=== PATIENT | male | born 1955 | race Caucasian/White ===

== ENCOUNTER 2018-01-12 10:28 | Outpatient (REF) | payer BC, SELFPAY ==
[2018-01-12 13:50] LABS: HGB 15.6 g/dL (13.5-17.5); Mean Corp. HGB Concentration 32.5 g/dL (32.0-36.0); Mean Corpuscular Hemoglobin 28.4 pg (27.0-33.0); Mean Corpuscular Volume 87.3 fL (80-95); Mean Platelet Volume 10.6 fL (8.0-11.0); Platelet Count 231 x1000/uL (130-400); White Blood Cell Count 7.83 k/cumm (4.4-10.8)
[2018-01-12 14:42] LABS: ALT 60 U/L (12-78); AST 33 U/L (15-37); Albumin 3.7 g/dL (3.4-5.0); Alkaline Phosphatase 155 U/L (46-116); Anion Gap 6.8 mmol/L (3-11); BUN 19 mg/dL (7-18); Bilirubin, Total 0.4 mg/dL (0.2-1.0); CO2 29.2 mmol/L (21.0-32.0); CREATININE 1.14 mg/dL (0.70-1.30); Calcium 8.7 mg/dL (8.5-10.1); Chloride 104 mmol/L (98-107); Cholesterol 220 mg/dL (50-200); Glucose 101 mg/dL (70-100); HDL Cholesterol 34 mg/dL (40-60); LDL CHOLESTEROL 168 mg/dL (<100); Potassium 4.5 mmol/L (3.5-5.1); Sodium 140 mmol/L (136-145); Total Protein 7.3 g/dL (6.4-8.2); Triglyceride 135 mg/dL (30-150)
== END 2018-01-12 10:48 ==
LOC: NCHCN 10:28
PROVIDERS: PCP Family Medicine; Visit Provider Family Medicine
DX: Z00.00 Encounter for general adult medical examination without abnormal findings (principal); J30.2 Other seasonal allergic rhinitis; Z13.228 Encounter for screening for other metabolic disorders; Z13.220 Encounter for screening for lipoid disorders
CPT/HCPCS: 80053; 80061; 83721; 85027

== ENCOUNTER 2018-04-20 08:51 | Outpatient (REF) | payer BC, SELFPAY ==
[2018-04-20 12:49] LABS: Cholesterol 156 mg/dL (50-200); HDL Cholesterol 30 mg/dL (40-60); LDL CHOLESTEROL 109 mg/dL (<100); Triglyceride 122 mg/dL (30-150)
== END 2018-04-20 09:11 ==
LOC: NCHCN 08:51
PROVIDERS: PCP Family Medicine; Visit Provider Family Medicine
DX: E78.5 Hyperlipidemia, unspecified (principal)
CPT/HCPCS: 80061; 83721

== ENCOUNTER 2019-03-03 08:35 | Outpatient (REF) | payer BC, SELFPAY ==
[2019-03-03 13:09] LABS: ALT 32 U/L (16-63); AST 15 U/L (15-37); Albumin 3.7 g/dL (3.4-5.0); Alkaline Phosphatase 166 U/L (46-116); Anion Gap 8.5 mmol/L (3-11); BUN 11 mg/dL (7-18); Bilirubin, Total 0.5 mg/dL (0.2-1.0); CO2 29.5 mmol/L (21.0-32.0); CREATININE 1.23 mg/dL (0.70-1.30); Calcium 9.3 mg/dL (8.5-10.1); Calculated LDL 83 mg/dL; Chloride 105 mmol/L (98-107); Cholesterol 125 mg/dL (50-200); Estimated GFR 59.24 (mL/min/1.73m2); Glucose 97 mg/dL (70-100); HDL Cholesterol 29 mg/dL (40-60); Sodium 143 mmol/L (136-145); Total Protein 7.2 g/dL (6.4-8.2); Triglyceride 68 mg/dL (30-150)
== END 2019-03-03 08:55 ==
LOC: NCHCN 08:35
PROVIDERS: PCP Family Medicine; Visit Provider Family Medicine
DX: Z00.00 Encounter for general adult medical examination without abnormal findings (principal); E78.5 Hyperlipidemia, unspecified; I10 Essential (primary) hypertension
CPT/HCPCS: 80053; 80061

== ENCOUNTER 2019-10-25 14:50 | Outpatient (REF) | payer BC, SELFPAY ==
[2019-10-29 17:16] LABS: SARS-CoV-2 RNA Undetected (Undetected); SARS-CoV-2 Specimen Source Nasopharynx
== END 2019-10-25 15:10 ==
LOC: NCHCN 14:50
PROVIDERS: PCP Family Medicine; Visit Provider Nurse Practitioner Family
DX: Z20.828 Contact with and (suspected) exposure to other viral communicable diseases (principal)
CPT/HCPCS: U0003

== ENCOUNTER 2021-03-12 15:16 | Outpatient (REF) | payer MEDICARE, BC, SELFPAY ==
[2021-03-13 08:13] LABS: BUN 23 mg/dL (7-18); CREATININE 1.4 mg/dL (0.70-1.30); Calcium 9.5 mg/dL (8.5-10.1); Glucose 90 mg/dL (74-106)
[2021-03-13 08:14] LABS: ALT 61 U/L (16-63); AST 28 U/L (15-37); Albumin 3.7 g/dL (3.4-5.0); Alkaline Phosphatase 151 U/L (46-116); Anion Gap 7.5 mmol/L (3-11); Bilirubin, Total 0.6 mg/dL (0.2-1.0); CO2 28.5 mmol/L (21.0-32.0); Calculated LDL 84 mg/dL (<100); Chloride 106 mmol/L (98-107); Cholesterol 129 mg/dL (<200); HDL Cholesterol 30 mg/dL (40-60); Sodium 142 mmol/L (136-145); Total Protein 7.8 g/dL (6.4-8.2); Triglyceride 76 mg/dL (<150)
[2021-03-13 18:28] LABS: PSA, Screening 0.9 ng/mL (0.0-4.5)
== END 2021-03-12 15:17 | disposition home or self-care (01) ==
LOC: NCHCN 15:16
PROVIDERS: PCP Family Medicine; Visit Provider Family Medicine
DX: I10 Essential (primary) hypertension (principal); E78.5 Hyperlipidemia, unspecified; Z12.5 Encounter for screening for malignant neoplasm of prostate; Z80.0 Family history of malignant neoplasm of digestive organs
CPT/HCPCS: 80053; 80061; 84153

== ENCOUNTER → 2021-04-15 11:26 | Outpatient (BNVA) | payer MEDICARE, BC, SELFPAY | PROVIDERS: PCP Family Medicine; Referring Provider Family Medicine; Visit Provider Surgery | DX: R19.5 Other fecal abnormalities (principal); K42.9 Umbilical hernia without obstruction or gangrene | CPT/HCPCS: 99203 ==

== ENCOUNTER 2021-05-14 16:23 | Outpatient (REF) | payer MEDICARE, SELFPAY ==
[2021-05-14 15:04] LABS: HCT 40.7 % (40.0-50.0); HGB 12.6 g/dL (13.5-17.5); MCH 26.8 pg (27.0-33.0); MCV 86.6 fL (80-95); MPV 10.5 fL (8.0-11.0); Platelet Count 246 10^3/uL (130-400); RDW 14.7 % (11.8-14.1); RDW-SD 46.8 fL; WBC 6.55 10^3/uL (4.4-10.8)
[2021-05-14 15:05] LABS: Bilirubin Negative (Negative); Blood Large (Negative); Clarity Clear (Clear); Glucose Negative (Negative); Ketones Negative (Negative); Leukocyte Esterase Negative (Negative); Nitrite Negative (Negative); Specific Gravity 1.025 (1.005-1.025); Urobilinogen 0.2 EU/dL (Up TO 0.2); pH 5.5 (5-8)
[2021-05-14 15:13] LABS: Bacteria Negative HPF (Negative); Crystals Negative HPF (Negative); Epithelial Cells Few HPF (Negative); Mucus Negative (Negative); WBC Negative HPF (0-5)
[2021-05-14 15:14] LABS: C & S Indicated? No; Casts 0-2 Hyaline LPF (Negative)
[2021-05-14 15:32] LABS: ALT 58 U/L (16-63); AST 36 U/L (15-37); Albumin 3.8 g/dL (3.4-5.0); Alkaline Phosphatase 163 U/L (46-116); Anion Gap 6.4 mmol/L (3-11); BUN 24 mg/dL (7-18); Bilirubin, Total 0.5 mg/dL (0.2-1.0); CO2 29.6 mmol/L (21.0-32.0); CREATININE 1.4 mg/dL (0.70-1.30); Calcium 10.3 mg/dL (8.5-10.1); Chloride 103 mmol/L (98-107); Glucose 91 mg/dL (74-106); Potassium 4.8 mmol/L (3.5-5.1); Sodium 139 mmol/L (136-145); Total Protein 8.3 g/dL (6.4-8.2)
== END 2021-05-14 16:24 | disposition home or self-care (01) ==
LOC: NCHCN 16:23
PROVIDERS: PCP Family Medicine; Visit Provider Family Medicine
DX: R31.9 Hematuria, unspecified (principal)
CPT/HCPCS: 80053; 85027; 81003; 81015

== ENCOUNTER 2021-05-20 00:57 | Outpatient (CLI) | payer MEDICARE, SELFPAY ==
[2021-05-20] MEDS: Omnipaque 350 MG/ML 100 ML BTL IJ (08:14)
--- NOTE | 2021-05-20 08:28 | DI.CT_ITS ---
Exam(s) CT ABDOMEN PELVIS WO/W EXAM: CT ABDOMEN PELVIS WO/W CLINICAL HISTORY: HEMATURIA, R31.9. TECHNIQUE: Imaging Protocol: Axial computed tomography images with coronal and sagittal reformatted images were created and reviewed CONTRAST MATERIAL: Intravenous: Omnipaque 100cc Oral: None COMPARISON: No exams were available for comparison FINDINGS: VISUALIZED LUNG BASES: No nodules nor pleural effusions evident. ABDOMEN: There is no ascites. LIVER: There are no focal hepatic lesions evident . GALLBLADDER/BILIARY: Small faint density on the dependent wall of the gallbladder is either a small c alculus or possible polyp (series 4/image 32). No gallbladder wall edema nor pericholecystic fluid. CBD is not dilated. PANCREAS: No evidence of pancreatic mass nor dilatation of the pancreatic duct. SPLEEN: Spleen size upper normal. No splenic lesions. Splenic and portal veins are patent. ADRENALS: There are no significant adrenal masses. KIDNEYS:There is a huge mass in the left kidney occupying almost the entire kidney and measuring 16 c m wide by 14 cm AP by 14 cm craniocaudal. This heterogeneous mass is highly suspicious for malignanc y. There is a in 11 by 10 millimeter calculus in the upper pole of the ipsilateral-left kidney. The re is some dilatation of upper pole calices. There is intraluminal tumor thrombus in the left renal vein adjacent to the kidney but not extending across the midline. In the opposite-right kidney there are few small cortical cysts as well as a partially exophytic cyst off the posterior cortex which me asures 1.7 x 1.4 cm. No calculi nor solid masses in the right kidney. Right renal vein is patent. IVC is patent. ABDOMINAL AORTA: Distal abdominal aorta exhibits lack of typical tapering with maximum diameter 2.2 c m. Mild arterial megaly in the left common iliac artery. No gross aneurysm of these vessels. LYMPH NODES:There is no retroperitoneal nor paraaortic adenopathy. ABDOMINAL WALL: Fat containing umbilical hernia. No bowel loops therein. GI: There is no evidence of bowel obstruction, free air, nor abscess. PELVIS: GI: No evidence of appendicitis.There is sigmoid diverticulosis. No evidence of acute diverticulitis . LYMPH NODES: There is no intrapelvic nor inguinal adenopathy. REPRODUCTIVE: Prostate size is upper normal. Seminal vesicles unremarkable. URINARY BLADDER: No calculi nor obvious masses evident OSSEOUS: No significant osseous lesions. IMPRESSION: 1. The main finding here is a massive neoplasm of the left kidney as described above measuring approx imately 16 x 14 x 14 cm and extending down into the upper iliac fossa. There also appears to be some invasion of the ipsilateral left renal vein but this tumor thrombus does not cross the midline and t he IVC is patent 2. The opposite-right kidney exhibits a few small cortical cysts, largest measuring 1.7 x 1.4 cm. No solid lesions seen in the right kidney. 3. No obvious adenopathy and there no lytic bone lesions identified. 4. Atherosclerotic distal abdominal aorta with lack of normal tapering but no prominent aneurysm Report was put through as stat. RADIATION DOSE DELIVERED: 2,986.98mGy.cm Total DLP DATA REPOSITORY: All CT scans at this facility are submitted to the National Radiology Data Registry (NRDR) Dose Index Registry (DIR) with the [employer] (A[employer]). RADIATION OPTIMIZATION: All CT scans at this facility use at least one of these dose optimization te chniques: automated exposure control; mA and/or kV adjustment per patient size (includes targeted exa ms where dose is matched to clinical indication); or iterative reconstruction.
== END 2021-05-20 01:17 ==
PROVIDERS: PCP Family Medicine; Visit Provider Family Medicine
DX: R31.9 Hematuria, unspecified (principal); C64.2 Malignant neoplasm of left kidney, except renal pelvis; I70.0 Atherosclerosis of aorta
CPT/HCPCS: 74178; J3490

== ENCOUNTER 2021-05-29 02:22 | Outpatient (CLI) | payer MEDICARE, SELFPAY ==
--- NOTE | 2021-05-29 15:06 | DI.CT_ITS ---
Exam(s) CT CHEST WO EXAM: CT CHEST WO CLINICAL HISTORY: RENAL MASS, PREOP,N28.89,? NODULE OR METS. TECHNIQUE: Imaging protocol: Axial computed tomography images were obtained and coronal and sagittal reformatted images were created and reviewed. COMPARISON: CT CT ABDOMEN PELVIS WO/W from 05/20/2021 FINDINGS: Tracheobronchial tree: Patent where visualized. Pulmonary parenchyma: No focal consolidation. There is a 3 mm nodule in the apex of the right lung. No other pulmonary nodules are seen. No architectural distortion. Mediastinum and Hollie: No dominant adenopathy or fluid collection. The esophagus is unremarkable. Thyroid gland: Unremarkable. Pleura: No effusion or pneumothorax. Heart: The heart is not dilated. Coronary artery calcification is present. No pericardial effusion. Aorta: Thoracic aorta non-dilated. Atherosclerosis. Upper abdomen: There is again seen a stone in the superior aspect of the left kidney. The superior aspect of the large left renal mass is identified. The mass is incompletely imaged on the CT examina tion of the chest. Lymph nodes: Within normal limits. Soft tissues: Unremarkable. Bones:Within normal limits for the patient's age. No suspicious lytic or sclerotic lesions are prese nt IMPRESSION: 1. Solitary 3 mm nodule in the apex of the right lung. 2. No suspicious lytic lesions in the bones. 3. The known left renal mass is not well imaged on the current examination. Please refer to the CT s can of the abdomen and pelvis from 05/20/2021. RADIATION DOSE DELIVERED: 566.94mGy.cm Total DLP 566.94mGy.cm Total DLP DATA REPOSITORY: All CT scans at this facility are submitted to the National Radiology Data Registry (NRDR) Dose Index Registry (DIR) with the [employer] (ACR). RADIATION OPTIMIZATION: All CT scans at this facility use at least one of these dose optimization te chniques: automated exposure control; mA and/or kV adjustment per patient size (includes targeted exa ms where dose is matched to clinical indication); or iterative reconstruction.
== END 2021-05-29 02:42 ==
PROVIDERS: PCP Family Medicine; Visit Provider Surgery
DX: N28.89 Other specified disorders of kidney and ureter (principal); R91.1 Solitary pulmonary nodule; N20.0 Calculus of kidney
CPT/HCPCS: 71250

== ENCOUNTER 2021-06-11 00:48 | Outpatient (CLI) | payer MEDICARE, SELFPAY ==
--- NOTE | 2021-06-11 09:15 | RT.EKG_ITS ---
APPROVED REPORT Exam: Resting ECG Reason for Exam: N28.89 RENAL MASS Patient Location: O HR:58 bpm ECG Measurements Heart Rate 58 AXIS KS 222 P 52 QRSd 105 QRS 62 QT 426 T 22 QTc 419 Conclusion Sinus bradycardia...rate< 60 Prolonged KS interval...KS >220, V-rate 50- 90
== END 2021-06-11 00:49 | disposition home or self-care (01) ==
LOC: RT 00:48
PROVIDERS: PCP Family Medicine; Visit Provider Surgery
DX: N28.89 Other specified disorders of kidney and ureter (principal); R00.1 Bradycardia, unspecified
CPT/HCPCS: 93005; 93010

== ENCOUNTER 2021-06-11 01:49 | Outpatient (CLI) | payer MEDICARE, SELFPAY ==
[2021-06-11 09:20] LABS: Abs Immature Grans 0.02 10^3/uL (0.0-0.06); Absolute Basophil Count 0.07 10^3/uL (0.0-0.2); Absolute Eosinophil Count 0.13 10^3/uL (0.0-0.7); Absolute Lymphocyte Count 0.96 10^3/uL (1.2-3.4); Absolute Neutrophil Count 4.36 10^3/uL (1.2-6.7); Basophils % 1.2; Eosinophils % 2.2; HCT 39.1 % (40.0-50.0); HGB 11.9 g/dL (13.5-17.5); Immature Grans % 0.3; Lymphocytes % 16.2; MCH 26.4 pg (27.0-33.0); MCHC 30.4 % (32.0-36.0); MCV 86.9 fL (80-95); MPV 9.3 fL (8.0-11.0); Monocytes % 6.7; Neutrophils % 73.4; Nucleated RBC 0 %; Platelet Count 199 10^3/uL (130-400); RDW 14.8 % (11.8-14.1); RDW-SD 47.3 fL; WBC 5.94 10^3/uL (4.4-10.8)
[2021-06-11 09:22] LABS: Bilirubin Negative (Negative); Blood Small (Negative); Clarity Clear (Clear); Glucose Negative (Negative); Ketones Negative (Negative); Leukocyte Esterase Negative (Negative); Nitrite Negative (Negative); Specific Gravity 1.025 (1.005-1.025); Urobilinogen 0.2 EU/dL (Up TO 0.2)
[2021-06-11 09:33] LABS: Bacteria Negative HPF (Negative); C & S Indicated? No; Casts 0-2 Hyaline LPF (Negative); Crystals Negative HPF (Negative); Epithelial Cells Rare HPF (Negative); Mucus Negative (Negative); WBC 0-2 HPF (0-5)
[2021-06-11 10:08] LABS: ALT 44 U/L (16-63); AST 23 U/L (15-37); Albumin 3.4 g/dL (3.4-5.0); Alkaline Phosphatase 144 U/L (46-116); Anion Gap 7.4 mmol/L (3-11); BUN 25 mg/dL (7-18); Bilirubin, Total 0.6 mg/dL (0.2-1.0); CO2 28.6 mmol/L (21.0-32.0); CREATININE 1.4 mg/dL (0.70-1.30); Calcium 9.7 mg/dL (8.5-10.1); Chloride 103 mmol/L (98-107); Glucose 97 mg/dL (74-106); Potassium 4.4 mmol/L (3.5-5.1); Sodium 139 mmol/L (136-145); Total Protein 8.2 g/dL (6.4-8.2)
== END 2021-06-11 01:50 | disposition home or self-care (01) ==
LOC: LBO 01:49
PROVIDERS: PCP Family Medicine; Visit Provider Surgery
DX: N28.89 Other specified disorders of kidney and ureter (principal)
CPT/HCPCS: 36415; 80053; 81003; 81015; 85025

== ENCOUNTER 2021-08-12 12:09 | Outpatient (REF) | payer MEDICARE, SELFPAY ==
[2021-08-14 09:49] LABS: Hepatitis C Ab w Rflx HCV PCR Negative (Negative)
[2021-08-14 10:33] LABS: HIV-1/2 Ag & Ab Screen Negative (Negative)
== END 2021-08-12 12:10 | disposition home or self-care (01) ==
LOC: NCHCN 12:09
PROVIDERS: PCP Family Medicine; Visit Provider Family Medicine
DX: Z11.59 Encounter for screening for other viral diseases (principal); Z11.4 Encounter for screening for human immunodeficiency virus [HIV]
CPT/HCPCS: 86803; 87389

== ENCOUNTER 2021-08-29 09:26 | Outpatient (CLI) | payer MEDICARE, SELFPAY ==
[2021-08-29 08:59] LABS: ALT 779 U/L (16-63); AST 162 U/L (15-37); Albumin 3.8 g/dL (3.4-5.0); Alkaline Phosphatase 188 U/L (46-116); BUN 38 mg/dL (7-18); Bilirubin, Total 0.4 mg/dL (0.2-1.0); CREATININE 1.5 mg/dL (0.70-1.30); Calcium 8.9 mg/dL (8.5-10.1); Chloride 105 mmol/L (98-107); Estimated GFR 46.82 (mL/min/1.73m2); Glucose 157 mg/dL (74-106); Potassium 3.8 mmol/L (3.5-5.1); Sodium 140 mmol/L (136-145)
== END 2021-08-29 09:27 | disposition home or self-care (01) ==
PROVIDERS: PCP Family Medicine; Visit Provider Internal Medicine
DX: K71.6 Toxic liver disease with hepatitis, not elsewhere classified (principal)
CPT/HCPCS: 36415; 80053

== ENCOUNTER 2021-09-01 09:23 | Outpatient (CLI) | payer MEDICARE, SELFPAY ==
[2021-09-01 10:23] LABS: ALT 473 U/L (16-63); AST 67 U/L (15-37); Albumin 3.6 g/dL (3.4-5.0); Alkaline Phosphatase 158 U/L (46-116); BUN 31 mg/dL (7-18); Bilirubin, Total 0.3 mg/dL (0.2-1.0); CREATININE 1.4 mg/dL (0.70-1.30); Calcium 8.6 mg/dL (8.5-10.1); Chloride 105 mmol/L (98-107); Glucose 179 mg/dL (74-106); Potassium 3.9 mmol/L (3.5-5.1); Sodium 139 mmol/L (136-145); Total Protein 7.2 g/dL (6.4-8.2)
== END 2021-09-01 09:24 | disposition home or self-care (01) ==
LOC: LBO 09:38
PROVIDERS: PCP Family Medicine; Visit Provider Nurse Practitioner
DX: R79.89 Other specified abnormal findings of blood chemistry (principal)
CPT/HCPCS: 36415; 80053

== ENCOUNTER 2021-09-04 12:30 | Outpatient (CLI) | payer MEDICARE, SELFPAY ==
[2021-09-04 09:55] LABS: ALT 274 U/L (16-63); AST 35 U/L (15-37); Albumin 3.4 g/dL (3.4-5.0); Alkaline Phosphatase 137 U/L (46-116); Anion Gap 7.9 mmol/L (3-11); BUN 32 mg/dL (7-18); Bilirubin, Total 0.4 mg/dL (0.2-1.0); CO2 28.1 mmol/L (21.0-32.0); CREATININE 1.6 mg/dL (0.70-1.30); Calcium 8.4 mg/dL (8.5-10.1); Chloride 104 mmol/L (98-107); Estimated GFR 43.46 (mL/min/1.73m2); Glucose 171 mg/dL (74-106); Potassium 3.6 mmol/L (3.5-5.1); Sodium 140 mmol/L (136-145); Total Protein 7.1 g/dL (6.4-8.2)
== END 2021-09-04 12:31 | disposition home or self-care (01) ==
LOC: LBO 12:31
PROVIDERS: PCP Family Medicine; Visit Provider Nurse Practitioner
DX: R79.89 Other specified abnormal findings of blood chemistry (principal)
CPT/HCPCS: 36415; 80053

== ENCOUNTER 2021-09-08 14:24 | Outpatient (CLI) | payer MEDICARE, SELFPAY ==
[2021-09-08 17:03] LABS: ALT 166 U/L (16-63); AST 29 U/L (15-37); Albumin 3.5 g/dL (3.4-5.0); Alkaline Phosphatase 123 U/L (46-116); Anion Gap 6.4 mmol/L (3-11); BUN 29 mg/dL (7-18); Bilirubin, Total 0.4 mg/dL (0.2-1.0); CO2 28.6 mmol/L (21.0-32.0); CREATININE 1.6 mg/dL (0.70-1.30); Calcium 8.8 mg/dL (8.5-10.1); Chloride 101 mmol/L (98-107); Estimated GFR 43.46 (mL/min/1.73m2); Glucose 149 mg/dL (74-106); Potassium 5.3 mmol/L (3.5-5.1); Sodium 136 mmol/L (136-145); Total Protein 6.9 g/dL (6.4-8.2)
== END 2021-09-08 14:25 | disposition home or self-care (01) ==
LOC: LBO 14:24
PROVIDERS: PCP Family Medicine; Visit Provider Nurse Practitioner
DX: C64.2 Malignant neoplasm of left kidney, except renal pelvis (principal)
CPT/HCPCS: 36415; 80053

== ENCOUNTER 2021-09-10 02:05 | Outpatient (CLI) | payer MEDICARE, SELFPAY ==
[2021-09-10 13:22] LABS: ALT 153 U/L (16-63); AST 30 U/L (15-37); Albumin 3.3 g/dL (3.4-5.0); Alkaline Phosphatase 116 U/L (46-116); Anion Gap 5.3 mmol/L (3-11); BUN 31 mg/dL (7-18); Bilirubin, Total 0.5 mg/dL (0.2-1.0); CO2 28.7 mmol/L (21.0-32.0); CREATININE 1.5 mg/dL (0.70-1.30); Calcium 8.1 mg/dL (8.5-10.1); Chloride 102 mmol/L (98-107); Estimated GFR 46.82 (mL/min/1.73m2); Glucose 153 mg/dL (74-106); Potassium 4.5 mmol/L (3.5-5.1); Sodium 136 mmol/L (136-145); Total Protein 6.8 g/dL (6.4-8.2)
== END 2021-09-10 02:06 | disposition home or self-care (01) ==
LOC: LBO 02:05
PROVIDERS: PCP Family Medicine; Visit Provider Nurse Practitioner
DX: R79.89 Other specified abnormal findings of blood chemistry (principal)
CPT/HCPCS: 36415; 80053

== ENCOUNTER 2021-09-24 04:19 | Outpatient (CLI) | payer MEDICARE, SELFPAY ==
[2021-09-24 09:29] LABS: Abs Immature Grans 0.08 10^3/uL (0.0-0.06); Absolute Basophil Count 0.02 10^3/uL (0.0-0.2); Absolute Eosinophil Count 0.11 10^3/uL (0.0-0.7); Absolute Lymphocyte Count 1.57 10^3/uL (1.2-3.4); Absolute Monocyte Count 0.38 10^3/uL (0.1-0.8); Absolute Neutrophil Count 7.63 10^3/uL (1.2-6.7); Basophils % 0.2; Eosinophils % 1.1; HCT 44.5 % (40.0-50.0); HGB 14.3 g/dL (13.5-17.5); Immature Grans % 0.8; MCH 28.2 pg (27.0-33.0); MCHC 32.1 % (32.0-36.0); MCV 88 fL (80-95); MPV 9.1 fL (8.0-11.0); Monocytes % 3.9; Platelet Count 189 10^3/uL (130-400); RBC 5.07 10^6/uL (4.36-5.78); RDW 14.4 % (11.8-14.1); RDW-SD 46.3 fL; WBC 9.79 10^3/uL (4.4-10.8)
[2021-09-24 09:54] LABS: ALT 111 U/L (16-63); AST 24 U/L (15-37); Albumin 3.6 g/dL (3.4-5.0); Alkaline Phosphatase 127 U/L (46-116); Anion Gap 8.9 mmol/L (3-11); BUN 29 mg/dL (7-18); Bilirubin, Total 0.4 mg/dL (0.2-1.0); CO2 28.1 mmol/L (21.0-32.0); CREATININE 1.6 mg/dL (0.70-1.30); Calcium 8.7 mg/dL (8.5-10.1); Chloride 104 mmol/L (98-107); Estimated GFR 43.46 (mL/min/1.73m2); Glucose 202 mg/dL (74-106); Potassium 3.4 mmol/L (3.5-5.1); Sodium 141 mmol/L (136-145); TSH 3.23 uIU/mL (0.36-3.74); Total Protein 7.1 g/dL (6.4-8.2)
== END 2021-09-24 04:20 | disposition home or self-care (01) ==
LOC: LBO 04:19
PROVIDERS: Student in an Organized Health Care Education/Training Program; PCP Family Medicine
DX: C64.9 Malignant neoplasm of unspecified kidney, except renal pelvis (principal); Z79.899 Other long term (current) drug therapy
CPT/HCPCS: 36415; 80053; 84443; 85025

== ENCOUNTER 2021-10-01 04:00 | Outpatient (CLI) | payer MEDICARE, SELFPAY ==
[2021-10-01 10:42] LABS: ALT 58 U/L (16-63); AST 15 U/L (15-37); Albumin 3.6 g/dL (3.4-5.0); Alkaline Phosphatase 108 U/L (46-116); Anion Gap 7.1 mmol/L (3-11); BUN 37 mg/dL (7-18); Bilirubin, Total 0.7 mg/dL (0.2-1.0); CO2 29.9 mmol/L (21.0-32.0); CREATININE 1.5 mg/dL (0.70-1.30); Calcium 8.7 mg/dL (8.5-10.1); Chloride 102 mmol/L (98-107); Estimated GFR 46.82 (mL/min/1.73m2); Glucose 115 mg/dL (74-106); Potassium 4.1 mmol/L (3.5-5.1); Sodium 139 mmol/L (136-145); Total Protein 6.7 g/dL (6.4-8.2)
== END 2021-10-01 04:01 | disposition home or self-care (01) ==
LOC: LBO 04:00
PROVIDERS: PCP Family Medicine; Visit Provider Nurse Practitioner
DX: R79.89 Other specified abnormal findings of blood chemistry (principal)
CPT/HCPCS: 36415; 80053

== ENCOUNTER 2021-10-15 02:17 | Outpatient (CLI) | payer MEDICARE, SELFPAY ==
[2021-10-15 09:26] LABS: ALT 89 U/L (16-63); AST 34 U/L (15-37); Alkaline Phosphatase 92 U/L (46-116); Anion Gap 2.6 mmol/L (3-11); BUN 29 mg/dL (7-18); Bilirubin, Total 0.7 mg/dL (0.2-1.0); CO2 28.4 mmol/L (21.0-32.0); CREATININE 1.7 mg/dL (0.70-1.30); Calcium 8.3 mg/dL (8.5-10.1); Chloride 105 mmol/L (98-107); Estimated GFR 40.53 (mL/min/1.73m2); Glucose 174 mg/dL (74-106); Potassium 4.1 mmol/L (3.5-5.1); Sodium 136 mmol/L (136-145); Total Protein 6.2 g/dL (6.4-8.2)
== END 2021-10-15 02:18 | disposition home or self-care (01) ==
LOC: LBO 02:17
PROVIDERS: PCP Family Medicine; Visit Provider Internal Medicine
DX: C64.2 Malignant neoplasm of left kidney, except renal pelvis (principal); R79.89 Other specified abnormal findings of blood chemistry
CPT/HCPCS: 36415; 80053

== ENCOUNTER 2021-10-20 14:47 | Emergency (ER) | payer MEDICARE, SELFPAY ==
[2021-10-20 14:49] VITALS: BP 160/69; PULSE 95; RESP 18; TEMP 37; O2SAT 97
--- NOTE | 2021-10-20 15:00 | DI.US_ITS ---
Exam(s) US LOWER EXTREMITY VENOUS LT EXAM: US LOWER EXTREMITY VENOUS LT CLINICAL HISTORY: leg pain and swelling TECHNIQUE: Left lower extremity venous ultrasound performed using grayscale, color-flow, and spectra l Doppler analysis. COMPARISON: No exams were available for comparison FINDINGS: The left common femoral, and popliteal veins demonstrate normal compressibility, augmentation, and co jory Doppler. There is hypoechoic thrombus seen in the proximal, mid and distal femoral vein measurin g 25 cm in length. The posterior tibial veins are patent. The saphenofemoral junction is unremarkab le. Superficial thrombus is seen in the greater saphenous vein measuring 15 cm in length. It is dis shelli to the saphenofemoral junction. There is no evidence of a Estrada cyst. The soft tissues are unre markable. IMPRESSION: 1. DVT from the proximal to the distal femoral vein measuring 25 cm in length. 2. Superficial thrombophlebitis. It is not involve the saphenofemoral junction. 3. Results of this exam have been verbally communicated with provider. DATA REPOSITORY:
--- NOTE | 2021-10-20 15:06 | ED.GENADUL_ITS ---
Discharge Plan Disposition Patient Disposition: HOME Condition: Stable Discharge Details Clinical Impression: Fever, DVT (deep venous thrombosis), Renal cancer, CKD (chronic kidney disease) Primary Care Provider: Juan Dempsey ED Provider: Suzy Jaeger Home Meds and New Rx's Prescriptions: New Eliquis DVT-PE Treat 30D Start 5 mg (74 tabs) tablets,dose pack See Rx Instructions .ROUTE .COMPLEX Qty: 74 0RF Rx Instructions: orally per package directions Continued atorvastatin 20 mg tablet 20 mg PO DAILY losartan 100 mg tablet 100 mg PO DAILY diphenhydramine HCl [Benadryl] 25 mg capsule 25 mg PO Q6H PRN amlodipine 10 mg tablet 10 mg PO DAILY Label Comments: TAKE ONE TABLET BY MOUTH EVERY DAY FOR BLOOD PRESSURE prednisone 20 mg tablet 10 mg PO DAILY Label Comments: TAKE 4 TABLETS BY MOUTH DAILY FOR 7 DAYS; 3 TABLETS DAILY FOR 7 DAYS; 2 TABLETS DAILY FOR 7 DAYS; 1 TABLET DAILY FOR 7 DAYS; THEN ONE-HALF T Discharge Instructions Instructions: Fever in Adults (ED) Additional Instructions: Increase your prednisone intake 20 mg daily until you see your oncologist, call to schedule an appointment with them, you should be seen within the next several days Your blood cultures are pending, we will call you if these are abnormal Your Lyme and tickborne illness panel is also pending, we will call you if these are abnormal Start taking the Eliquis, this is a blood thinner Should you develop sudden headache, any head injury, blood in your stool, blood in your urine, you must be reassessed immediately You should use caution and not quite that high or engage in activities or any harm yourself such as mountain biking Do not take nonsteroidal anti-inflammatories with Eliquis, no ibuprofen, you may take Tylenol Should he develop chest pain, shortness of breath you must return immediately for reassessment You should start your Eliquis tonight Follow-up with your urologist tomorrow Referrals: Juan Dempsey MD [Primary Care Provider] - Discharge Data Discharge Date/Time-TO BE ENTERED AT DEPARTURE: 10/20/21 18:20 Medical Decision Making <Lamont Bhagat NP - Last Filed: 10/23/21 08:12> Patient presenting to the emergency department for chief complaint of left leg injury and fever. Patient reports approximately 1 week ago he struck his left lower leg with a 2 x 4 causing bruising and pain. Over the next couple days he noticed increased swelling and bruising to the area. Then 5 days ago patient started having intermittent fevers. Patient does have significant past medical history of kidney cancer and is on steroid taper due to having poor reaction to chemotherapy infusion. Patient denies any other associated aided symptoms such as cough, sore throat, chest congestion, GI symptoms, rash. Physical exam is positive for significantly swollen left lower extremity with edema through the calf. Patient does have tenderness to the distal aspect of left inner thigh otherwise exam is unremarkable. We will plan on checking labs including COVID testing given that patient is immunosuppressed and complaining of fever. We will perform DVT study due to trauma with worsening leg pain and palpable tenderness over deep venous system. Patient denies any need for pain medication pending result <DINO Coker - Last Filed: 10/20/21 20:55> Patient presenting to the emergency department for chief complaint of left leg injury and fever. Patient reports approximately 1 week ago he struck his left lower leg with a 2 x 4 causing bruising and pain. Over the next couple days he noticed increased swelling and bruising to the area. Then 5 days ago patient started having intermittent fevers. Patient does have significant past medical history of kidney cancer and is on steroid taper due to having poor reaction to chemotherapy infusion. Patient denies any other associated aided symptoms such as cough, sore throat, chest congestion, GI symptoms, rash. Physical exam is positive for significantly swollen left lower extremity with edema through the calf. Patient does have tenderness to the distal aspect of left inner thigh otherwise exam is unremarkable. We will plan on checking labs including COVID testing given that patient is immunosuppressed and complaining of fever. We will perform DVT study due to trauma with worsening leg pain and palpable te nderness over deep venous system. Patient denies any need for pain medication pending result care accepted in transfer from Barrett Williamson NP pending labs Patient without leukocytosis Urinalysis clear Chest x-ray clear Ultrasound shows extensive DVT LFTs are elevating as well Spoke with Dr. Patricia, oncologist at [facility] and we will initiate Eliquis for DVT Patient is not hypoxic, tachypneic, or tachycardic, my suspicion for PE is low at time of this clinical assessment Given his mildly elevating LFTs, the concern is that patient is discontinuing his prednisone too early and he will increase to 20 mg daily He will have close outpatient follow-up with oncology, he has an appointment with his urologist tomorrow He is also encouraged to call his PCP tomorrow Return precautions discussed and patient expressed understanding Discharged home in stable condition Baseline elevation in creatinine, unchanged from prior when compared Reviewed x-ray interpretation where available HPI <Lamont Bhagat NP - Last Filed: 10/23/21 08:12> General Mode of arrival: ambulatory . Date/Time Provider Initiated Documentation: 10/20/21 15:00 . Limitations to Documentation: no limitations . Information obtained by: patient, RN notes reviewed and old records reviewed . History of Present Illness 66 year old M presents to the emergency department with the chief complaint of left leg injury and swelling , described as moderate, Quality is described as other (denies current pain), and is localized to the left and lower extremity. Patient reports no radiation. Patient started experiencing this week(s) (1) and it has been constant. No relieving factors improve symptom(s), No exacerbating factors reported . Patient notes fever/chills. Patient did receive the following treatments prior to arrival, none Related Data Home Medications Medication Instructions Recorded Confirmed atorvastatin 20 mg tablet 20 mg PO DAILY 04/03/21 10/20/21 diphenhydramine HCl 25 mg capsule 25 mg PO Q6H PRN 04/03/21 10/20/21 (Benadryl) losartan 100 mg tablet 100 mg PO DAILY 04/03/21 10/20/21 amlodipine 10 mg tablet 10 mg PO DAILY 10/20/21 10/20/21 apixaban 5 mg (74 tabs) tablets in See Rx Instructions PO .COMPLEX 10/20/21 a dose pack (Eliquis DVT-PE Treat #74 dose pk 30D Start) prednisone 20 mg tablet 10 mg PO DAILY 10/20/21 10/20/21 Previous Rx's Medication Instructions Recorded apixaban 5 mg (74 tabs) tablets in See Rx Instructions PO .COMPLEX 10/20/21 a dose pack (Eliquis DVT-PE Treat #74 dose pk 30D Start) Allergies Allergy/AdvReac Type Severity Reaction Status Date / Time peanut Allergy Intermediate rash/mouth Unverified 10/20/21 14:54 swelling General Stated Complaint: Vascular TOSHA: 4 Review of Systems <Lamont Bhagat NP - Last Filed: 10/23/21 08:12> Constitutional Constitutional: Reports chills, Reports fever(s), Denies headache(s), Denies lethargy and Denies malaise ENT Ears, Nose, Mouth, and Throat: Denies headache(s), Denies nasal congestion and Denies sore throat Cardiovascular Cardiovascular: Denies chest pain and Denies dyspnea Respiratory Respiratory: Denies chest congestion, Denies cough and Denies dyspnea Gastrointestinal Gastrointestinal: Denies abdominal pain, Denies diarrhea, Denies nausea and Denies vomiting Genitourinary Genitourinary: Denies dysuria Musculoskeletal Musculoskeletal: Reports as per HPI, Reports joint swelling, Denies numbness and Denies tingling Integumentary/Breasts Skin/Breast: Denies erythema, Denies rash, Denies skin ulcer, Reports sores and Denies unusual bruising Neurologic Neurologic: Denies headache(s), Denies numbness, Denies tingling and Denies paresthesias Hematologic/Lymphatic Hematologic/Lymphatic: Reports easy bruising PFSH <Lamont Bhagat NP - Last Filed: 10/23/21 08:12> All Active Problems (Updated 10/20/21 @ 17:58 by DINO Coker) Fever (Acute) DVT (deep venous thrombosis) (Chronic) Renal cancer (Chronic) CKD (chronic kidney disease) (Chronic) Umbilical hernia (Acute) Positive fecal occult blood test (Acute) Screening for colon cancer (Acute) Seasonal allergies (Acute) Overweight (Acute) Hyperlipidemia (Acute) Hypertension (Chronic) Heart murmur (Acute) Medical History Family history of malignant melanoma Family history of pancreatic cancer Surgical History S/P colonoscopy (~2007) normal Social History Smoking/Tobacco Use Status: Never Smoking risk assessment performed?: Yes Alcohol Intake: former Drug use: Never Details: no alcohol x40 years Household members: spouse Housing: house 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 Exam <Lamont Bhagat NP - Last Filed: 10/23/21 08:12> Const General: cooperative, no acute distress and not ill appearing Orientation: alert, awake and oriented x3 HENMT Mouth: moist mucous membranes Resp Effort & Inspection: normal respiratory effort, able to speak in complete sentences and no respiratory distress Auscultation: clear to auscultation bilaterally Cardio Rate: regular rate Rhythm: regular rhythm Heart Sounds: S1 normal and S2 normal Skin General skin exam: no rashes or lesions noted Neuro General: patient alert, patient awake, patient oriented x3, moves all extremities and no focal motor deficits Sensory Exam: no sensory deficits noted Extrem General: normal exam except as noted Left lower extremity: edema Details: non-pitting and 2+, knee Details: tenderness Location: of the distal upper leg, lower leg Details: tenderness Location: of the posterior calf and ankle Details: swelling and normal ROM; no tenderness, no abrasions and no lacerations Course <Lamont Bhagat NP - Last Filed: 10/23/21 08:12> Vital Signs Vital signs: Vital Signs Temperature 37 C 10/20/21 14:49 Pulse 95 H 10/20/21 14:49 Respiratory Rate 18 10/20/21 14:49 Blood Pressure 160/69 H 10/20/21 14:49 Pulse Oximetry 97 10/20/21 14:49 Temperature 37 C 10/20/21 14:49 Temperature Source Skin 10/20/21 14:49 Pulse 95 H 10/20/21 14:49 Respiratory Rate 18 10/20/21 14:49 Respiratory Effort 10/20/21 15:02 Blood Pressure 160/69 H 10/20/21 14:49 Blood Pressure Position Sitting 10/20/21 14:49 Pulse Oximetry 97 10/20/21 14:49 Oxygen Delivery Method Room Air 10/20/21 14:49 Oxygen Flow Rate 0 10/20/21 14:49 Pain Level 0 10/20/21 14:49 Sign Out <Lamont Bhagat NP - Last Filed: 10/23/21 08:12> Sign Out Data: Sign Out Comment: Patient signed out pending results of DVT study along with labs due to patient cancer history with reported fever for 5 days along with left leg injury Last updated by Lamont Bhagat, [employer] TECH[employer]ICIAN [employer]IC at 10/20/21 15:32
--- NOTE | 2021-10-20 15:45 | DI.RAD_ITS ---
Exam(s) XR PORTABLE CHEST AP EXAM: XR PORTABLE CHEST AP CLINICAL HISTORY: fever TECHNIQUE: 2D digital imaging was performed. COMPARISON: No exams were available for comparison FINDINGS: LUNGS: Clear. No pleural abnormality seen. HEART: Normal. AORTA: Normal. BONES: Unremarkable for age. Soft tissues: Unremarkable. IMPRESSION: No acute findings. DATA REPOSITORY: RADIATION DOSE DELIVERED:
[2021-10-20 16:04] LABS: Lactate 0.8 mmol/L (0.6-1.4)
[2021-10-20 16:10] VITALS: RESP 16
[2021-10-20 16:11] LABS: Abs Immature Grans 0.12 10^3/uL (0.0-0.06); HCT 39.8 % (40.0-50.0); HGB 12.9 g/dL (13.5-17.5); MCH 27.9 pg (27.0-33.0); MCHC 32.4 % (32.0-36.0); MCV 86 fL (80-95); Platelet Count 139 10^3/uL (130-400); RBC 4.62 10^6/uL (4.36-5.78); RDW 15.9 % (11.8-14.1); RDW-SD 49.3 fL; WBC 7.08 10^3/uL (4.4-10.8)
[2021-10-20 16:11] LABS: Bilirubin Negative (Negative); Blood Trace-intact (Negative); Clarity Clear (Clear); Glucose Negative (Negative); Ketones Negative (Negative); Leukocyte Esterase Negative (Negative); Nitrite Negative (Negative); Urobilinogen 0.2 EU/dL (Up TO 0.2); pH 5.5 (5-8)
[2021-10-20 16:12] LABS: Source Nasal/Nares
[2021-10-20 16:27] LABS: ALT 261 U/L (16-63); AST 121 U/L (15-37); Alkaline Phosphatase 98 U/L (46-116); Anion Gap 8.3 mmol/L (3-11); BUN 28 mg/dL (7-18); Bilirubin, Total 0.8 mg/dL (0.2-1.0); CO2 25.7 mmol/L (21.0-32.0); CREATININE 1.5 mg/dL (0.70-1.30); Calcium 8.1 mg/dL (8.5-10.1); Chloride 103 mmol/L (98-107); Estimated GFR 46.82 (mL/min/1.73m2); Glucose 133 mg/dL (74-106); Potassium 4.1 mmol/L (3.5-5.1); Sodium 137 mmol/L (136-145); Total Protein 6.4 g/dL (6.4-8.2)
[2021-10-20 16:31] LABS: Bacteria Negative HPF (Negative); C & S Indicated? No; Crystals Negative HPF (Negative); Epithelial Cells Negative HPF (Negative); Mucus Negative (Negative); RBC 0-2 HPF (0-2); WBC Negative HPF (0-5)
[2021-10-20 16:49] LABS: Absolute Lymphocyte Count 1.42 10^3/uL (1.2-3.4); Absolute Monocyte Count 0.57 10^3/uL (0.1-0.8); Atypical Lymphocytes % 7; Bands % 1; Diff Comment Manual Differential; RBC Morphology Normal
[2021-10-20 17:18] LABS: COVID-19 PCR Negative (Negative)
--- NOTE | 2021-10-20 17:23 | DI.VRAD_ITS ---
PROCEDURE INFORMATION: Exam: XR Chest Exam date and time: 10/20/2021 4:49 PM Age: 66 years old Clinical indication: Fever TECHNIQUE: Imaging protocol: Radiologic exam of the chest. Views: 1 view. COMPARISON: CT CHEST WO 05/29/2021 2:54 PM FINDINGS: Lungs: Unremarkable. No consolidation. Pleural spaces: Unremarkable. No pleural effusion. No pneumothorax. Heart/Mediastinum: Unremarkable. No cardiomegaly. Bones/joints: Unremarkable. IMPRESSION: No acute findings. Dictated and Authenticated by: Caryl Day MD. Ordering:DANIELE Almonte MD
--- NOTE | 2021-10-20 18:00 | NUR.NOTE ---
Nursing Note: Faxed to PCP [facility] referral for DVT post follow up within 1 week.
[2021-10-20] MEDS: Apixaban 5 MG TAB (18:31)
[2021-10-22 11:00] LABS: Lyme Ab w Rflx to Lyme Confirm Negative (Negative)
[2021-10-24 08:19] LABS: Anaplasma phagocytophilum Negative (Negative); B. miyamotoi PCR Negative (Negative); Babesia divergens/MO-1 Negative (Negative); Babesia duncani Negative (Negative); Babesia microti Negative (Negative); Ehrlichia chaffeensis Negative (Negative); Ehrlichia ewingii/canis Negative (Negative); Ehrlichia muris eauclairensis Negative (Negative)
== END 2021-10-20 18:20 | disposition home or self-care (01) ==
PROVIDERS: Nurse Practitioner Family; Emergency Provider Physician Assistant; PCP Family Medicine
DX: R50.9 Fever, unspecified (principal); I82.492 Acute embolism and thrombosis of other specified deep vein of left lower extremity; C64.9 Malignant neoplasm of unspecified kidney, except renal pelvis; Z20.822 Contact with and (suspected) exposure to COVID-19; I12.9 Hypertensive chronic kidney disease with stage 1 through stage 4 chronic kidney disease, or unspecified chronic kidney disease; N18.9 Chronic kidney disease, unspecified; Z79.899 Other long term (current) drug therapy
CPT/HCPCS: 36415; 80053; 87040; 87635; 87798; 99284; 71045; 81003; 81015; 83605; 85025; 86618; 93971

== ENCOUNTER 2021-10-22 02:05 | Outpatient (CLI) | payer MEDICARE, SELFPAY ==
[2021-10-22 09:46] LABS: ALT 278 U/L (16-63); AST 121 U/L (15-37); Albumin 2.6 g/dL (3.4-5.0); Alkaline Phosphatase 90 U/L (46-116); Anion Gap 4.7 mmol/L (3-11); BUN 24 mg/dL (7-18); Bilirubin, Total 0.8 mg/dL (0.2-1.0); CO2 28.3 mmol/L (21.0-32.0); CREATININE 1.5 mg/dL (0.70-1.30); Chloride 104 mmol/L (98-107); Estimated GFR 46.82 (mL/min/1.73m2); Glucose 129 mg/dL (74-106); Sodium 137 mmol/L (136-145); Total Protein 5.6 g/dL (6.4-8.2)
== END 2021-10-22 02:06 | disposition home or self-care (01) ==
LOC: LBO 02:05
PROVIDERS: PCP Family Medicine; Visit Provider Internal Medicine
DX: C64.2 Malignant neoplasm of left kidney, except renal pelvis (principal); R79.89 Other specified abnormal findings of blood chemistry
CPT/HCPCS: 36415; 80053

== ENCOUNTER 2021-11-04 08:40 | Outpatient (CLI) | payer MEDICARE, SELFPAY ==
[2021-11-04 11:03] LABS: ALT 80 U/L (16-63); AST 27 U/L (15-37); Alkaline Phosphatase 90 U/L (46-116); Anion Gap 6.9 mmol/L (3-11); BUN 28 mg/dL (7-18); Bilirubin, Total 0.6 mg/dL (0.2-1.0); CO2 29.1 mmol/L (21.0-32.0); CREATININE 1.4 mg/dL (0.70-1.30); Calcium 8.7 mg/dL (8.5-10.1); Chloride 105 mmol/L (98-107); Glucose 156 mg/dL (74-106); Potassium 3.7 mmol/L (3.5-5.1); Sodium 141 mmol/L (136-145); Total Protein 6.3 g/dL (6.4-8.2)
[2021-11-05 13:38] LABS: IgG 845 mg/dL (610-1,616)
[2021-11-05 15:20] LABS: Smooth Muscle Ab Screen Negative (Negative)
== END 2021-11-04 08:41 | disposition home or self-care (01) ==
LOC: LBO 08:40
PROVIDERS: Internal Medicine; PCP Family Medicine; Visit Provider Nurse Practitioner
DX: C64.2 Malignant neoplasm of left kidney, except renal pelvis (principal); R79.89 Other specified abnormal findings of blood chemistry; K71.6 Toxic liver disease with hepatitis, not elsewhere classified; T50.905A Adverse effect of unspecified drugs, medicaments and biological substances, initial encounter; K75.4 Autoimmune hepatitis
CPT/HCPCS: 36415; 80053; 82784; 86255

== ENCOUNTER 2022-01-08 03:04 | Outpatient (CLI) | payer MEDICARE, SELFPAY ==
[2022-01-08 09:10] LABS: Abs Immature Grans 0.06 10^3/uL (0.0-0.06); Absolute Basophil Count 0.07 10^3/uL (0.0-0.2); Absolute Eosinophil Count 0.15 10^3/uL (0.0-0.7); Absolute Lymphocyte Count 1.84 10^3/uL (1.2-3.4); Basophils % 0.6; Eosinophils % 1.3; HCT 43.9 % (40.0-50.0); HGB 14.3 g/dL (13.5-17.5); Immature Grans % 0.5; Lymphocytes % 16.2; MCH 29.3 pg (27.0-33.0); MCHC 32.6 % (32.0-36.0); MCV 90 fL (80-95); MPV 9.4 fL (8.0-11.0); Monocytes % 3.4; Platelet Count 211 10^3/uL (130-400); RBC 4.88 10^6/uL (4.36-5.78); RDW 13.5 % (11.8-14.1); RDW-SD 44.2 fL; WBC 11.33 10^3/uL (4.4-10.8)
[2022-01-08 09:12] LABS: Absolute Monocyte Count 0.39 10^3/uL (0.1-0.8); Absolute Neutrophil Count 8.84 10^3/uL (1.2-6.7)
[2022-01-08 09:25] LABS: ALT 35 U/L (16-63); AST 14 U/L (15-37); Albumin 3.2 g/dL (3.4-5.0); Alkaline Phosphatase 89 U/L (46-116); Anion Gap 5.4 mmol/L (3-11); BUN 32 mg/dL (7-18); Bilirubin, Direct 0.1 mg/dL (0.0-0.2); Bilirubin, Total 0.3 mg/dL (0.2-1.0); CO2 30.6 mmol/L (21.0-32.0); CREATININE 1.5 mg/dL (0.70-1.30); Calcium 8.6 mg/dL (8.5-10.1); Chloride 105 mmol/L (98-107); Estimated GFR 51.03 (mL/min/1.73m2); Glucose 169 mg/dL (74-106); Potassium 3.8 mmol/L (3.5-5.1); Sodium 141 mmol/L (136-145)
[2022-01-08 09:29] LABS: Prothrombin Time 9.9 sec (9.3-11.0)
== END 2022-01-08 03:05 | disposition home or self-care (01) ==
LOC: LBO 03:06
PROVIDERS: PCP Family Medicine; Visit Provider Internal Medicine
DX: C64.9 Malignant neoplasm of unspecified kidney, except renal pelvis (principal); R79.89 Other specified abnormal findings of blood chemistry; K71.6 Toxic liver disease with hepatitis, not elsewhere classified; T50.905A Adverse effect of unspecified drugs, medicaments and biological substances, initial encounter
CPT/HCPCS: 36415; 80053; 80076; 85025; 85610

== ENCOUNTER 2022-01-13 16:40 | Emergency (ER) | payer MEDICARE, SELFPAY ==
[2022-01-13] VITALS (7 sets, daily range): BP systolic 138–185; BP diastolic 66–90; PULSE 58–84; RESP 14–24; TEMP 36.3–36.8; O2SAT 98
--- NOTE | 2022-01-13 17:00 | RT.EKG_ITS ---
APPROVED REPORT Exam: Resting ECG Reason for Exam: dizziness Patient Location: E HR:65 bpm ECG Measurements Heart Rate 65 AXIS IA 198 P 65 QRSd 96 QRS 65 QT 431 T 39 QTc 447 Conclusion Sinus rhythm...normal P axis, V-rate 60- 99. Sinus. Normal axis. No STEMI. I have reviewed and interpreted ECG and agree with software generated interpretation.
--- NOTE | 2022-01-13 17:30 | DI.RAD_ITS ---
Exam(s) XR CHEST 2V PA LATERAL EXAM: XR CHEST 2V PA LATERAL CLINICAL HISTORY: dizziness, fatigue, r/o pneumonia. TECHNIQUE: 2D digital imaging was performed. COMPARISON: CR,XR XR PORTABLE CHEST AP from 10/20/2021 FINDINGS: 2 views: Heart size is normal. The mediastinum is not widened. Lungs are clear. No infiltrates nor pleural effusions. IMPRESSION: No acute pulmonary findings. DATA REPOSITORY: RADIATION DOSE DELIVERED:
--- NOTE | 2022-01-13 17:30 | DI.CT_ITS ---
Exam(s) CT BRAIN NECK CTA EXAM: CT BRAIN NECK CTA CLINICAL HISTORY: dizziness, headache, r/o cva. TECHNIQUE: Imaging Protocol: Axial CT angiography was performed with multi-slice acquisition and mu lti-planar and/or 3D reconstructions. CONTRAST MATERIAL: Intravenous: Omnipaque 350 Contrast volume:85 mL COMPARISON: CT CT ABDOMEN PELVIS WO/W from 05/20/2021 FINDINGS: CTA Neck W: INCIDENTAL: There is an 11 x 12 millimeter right upper lobe nodule incidentally noted in the right carey b apical lung region. This may be metastatic in this patient has a history of renal cell malignancy. Another smaller right upper lobe nodule also noted. Aortic arch anatomy: The aortic arch anatomy is conventional. Anterior circulation: There is some mild-moderate plaque in proximal half of the right common carotid artery, with approxim ately 30 percent stenosis at this level. There is, however, no evidence of significant atherosclerot ic narrowing of the carotid bifurcation proximal internal carotid arteries on either side and both in ternal carotid arteries in the upper neck and skull base are nicely patent. Posterior circulation: Both vertebral arteries arising conventional fashion off the subclavian arteries and there is no sten osis at their origins nor in the subclavian arteries proximal to the vertebral artery takeoff points. Both vertebral arteries ascend with equal normal luminal diameters in the foramen transverse area w ith no evidence of intraluminal thrombus nor dissection. At the skull base there is no significant a therosclerotic narrowing of the vertebral arteries and both of the vertebral arteries contribute to t he formation of the basilar artery at the skull base. CTA Brain W: Anterior circulation: Both internal carotid arteries are patent in the skull base and cavernous sinuses and supraclinoid as pects of both arteries are patent and nonaneurysmal. Both A1 segments are patent as are both anterio r cerebral arteries and there is no evidence of aneurysm at the level of the anterior communicating a rtery nor elsewhere in the [id number]. Both middle cerebral arteries are patent. No significant stenosis. No aneurysms. Posterior circulation: Basilar artery is formed by both vertebral arteries and ascends in the midline with normal luminal di ameter. No significant stenosis. Distally gives off superior cerebellar arteries and above this lev el terminates as patent bilateral posterior cerebral arteries. CT BRAIN: There is no evidence of intracranial hemorrhage, mass effect, or shift of midline structures. There are no extra-axial fluid collections. Ventricles are not enlarged or shifted. There are no ring enh ancing lesions in the brain and no abnormal meningeal enhancement. IMPRESSION: 1. Mild plaque noted in the proximal right common carotid artery without hemodynamically seen aside a t this level. No significant atherosclerotic narrowing of the carotid bulbs and proximal internal ca rotid arteries on either side and the vertebral arteries are also demonstrated to be patent bilateral ly with no vertebral artery stenosis nor dissection. 2. Patent intracranial arteries. 3. No acute intracranial findings. No ring enhancing lesions suggest metastatic disease in the bra in in this patient who has history of renal cell malignancy. Incidentally noted is a concerning 12 millimeter nodule in the right upper lobe right lung which may be metastatic given the findings in the left kidney seen on CT scan of 05/20/21. Called to ER. RADIATION DOSE DELIVERED: 2,168.1mGy.cm Total DLP DATA REPOSITORY: All CT scans at this facility are submitted to the National Radiology Data Registry (NRDR) Dose Index Registry (DIR) with the [employer] ([employer]). RADIATION OPTIMIZATION: All CT scans at this facility use at least one of these dose optimization te chniques: automated exposure control; mA and/or kV adjustment per patient size (includes targeted exa ms where dose is matched to clinical indication); or iterative reconstruction.
--- NOTE | 2022-01-13 17:36 | ED.GENADUL_ITS ---
Discharge Plan Disposition Patient Disposition: HOME Condition: Stable Discharge Details Clinical Impression: Dizziness, Fatigue, Headache Primary Care Provider: Juan Dempsey ED Provider: German Benjamin Home Meds and New Rx's Prescriptions: New meclizine 25 mg tablet 25 mg PO TID PRN (Reason: dizziness) Qty: 30 0RF Continued losartan 100 mg tablet 100 mg PO DAILY diphenhydramine HCl [Benadryl] 25 mg capsule 25 mg PO Q6H PRN amlodipine 10 mg tablet 10 mg PO DAILY Label Comments: TAKE ONE TABLET BY MOUTH EVERY DAY FOR BLOOD PRESSURE Eliquis DVT-PE Treat 30D Start 5 mg (74 tabs) tablets,dose pack See Rx Instructions .ROUTE .COMPLEX Qty: 74 0RF Rx Instructions: orally per package directions budesonide 3 mg capsule,delayed,extend.release 6 mg PO DAILY Label Comments: TAKE THREE CAPSULES BY MOUTH EVERY MORNING Discharge Instructions Instructions: Dizziness (ED), Fatigue (ED) Additional Instructions: your blood work and cat scans did not show significant abnormalities at this time follow up with your primary care provider and specialists if you feel more ill, have severe pain or difficulty breathing return to the emergency department Discharge Data Discharge Date/Time-TO BE ENTERED AT DEPARTURE: 01/13/22 20:42 Medical Decision Making <Cheryl Sales, - Last Filed: 01/15/22 16:18> Dr. Sales 66-year-old male with a history of obesity, hypertension, hyperlipidemia, renal cell carcinoma with left nephrectomy, and history of DVT in June 24 currently on Eliquis who presents with dizziness and fatigue for the past 4 days. Blood pressure hypertensive with systolic in the 160s to 180s and remainder vitals within normal limits. Patient appears generally fatigued but nontoxic. Normal TMs bilaterally. Lungs clear bilaterally. Abdomen soft nontender. No meningeal signs. Differential diagnosis includes dehydration, UTI, pneumonia, CVA, COVID. Lower suspicion for meningitis as he has no report of fever or con fusion and has no meningeal signs. History and presentation does not appear consistent with PE and is low risk as he is currently taking anticoagulation and has normal heart rate and oxygen saturation without complaint of chest pain or shortness of breath. We will place an IV, bolus IV fluids, screening labs, IV Tylenol and refer for CTA head and neck, chest x-ray and obtain a fluvid. Labs and imaging reviewed. White blood cell count 11. Lactate 1.5. Troponin negative. Urinalysis notes trace blood but no evidence of infection. Fluvid negative. CT head negative. CTA chest negative for acute findings but does note two right upper lobe pulmonary nodules one of which appears new. Chest x- ray negative. Patient reassessed and he still complaining of some lightheadedness, headache and neck pain. He appears nontoxic. Discussed with patient that his symptoms could be secondary to dehydration or viral illness. Do not see an indication for formal CT chest and abdomen and pelvis at this time as this is scheduled with his oncologist for screening in 2 days. Discussed that if his symptoms do not improve, he may need lumbar puncture to potentially rule out meningitis. Will give additional IV fluids, dose of IV Decadron, meclizine and reassess. Case endorsed to Dr. Benjamin to follow-up on patient response to medications and ambulation trial. If patient improves, likely can discharge to home with plan for follow-up with his primary care doctor and oncologist with plan for CT chest abdomen pelvis on as part of his routine screening and further discussion of the pulmonary nodules noted on CT chest today. Dr. Benjamin pt ambulating and states symptoms resolved, normal gait, no neck stiffness or meninigismus stable vitals. Discussed results with patient and he feels well enough for discharge and feel he is stable for this given reassuring workup, he will f/u with his pcp and specialists and return precautions given Medical Records Medical records reviewed: Yes I reviewed the patient's medical records. Imaging Data Radiologic Study: Radiologist's impression: XR Chest Exam date and time: 01/13/2022 6:57 PM Age: 66 years old Clinical indication: Patient HX: Dizziness, fatigue, R/O pneumonia TECHNIQUE: Imaging protocol: Radiologic exam of the chest. Views: 2 views. COMPARISON: XR PORTABLE CHEST AP 10/20/2021 4:49 PM FINDINGS: Lungs: Unremarkable. No consolidation. Pleural spaces: Unremarkable. No pleural effusion. No pneumothorax. Heart/Mediastinum: Unremarkable. No cardiomegaly. Bones/joints: Unremarkable. IMPRESSION: No acute findings. CTA Head With Contrast, Arteriography Exam date and time: 01/13/2022 6:41 PM Age: 66 years old Clinical indication: Stroke-like symptoms; Headache and other: Dizzines; Additional info: Dizziness, headache, R/O CVA TECHNIQUE: Imaging protocol: Computed tomographic angiography of the head with contrast. Exam focused on the arteries. 3D rendering (Not supervised by radiologist): MIP and/or 3D reconstructed images were created by the technologist. Radiation optimization: All CT scans at this facility use at least one of these dose optimization techniques: automated exposure control; mA and/or kV adjustment per patient size (includes targeted exams where dose is matched to clinical indication); or iterative reconstruction. Contrast material: OMNIPAQUE 350; Contrast volume: 85 ml; Contrast route: INTRAVENOUS (IV);? COMPARISON: No relevant prior studies available. FINDINGS: ANTERIOR CIRCULATION: Right internal carotid artery: Intracranial segment is patent with no significant stenosis. No aneurysm. Right middle cerebral artery: No occlusion or significant stenosis. No aneurysm.? Right anterior cerebral artery: No occlusion or significant stenosis. No aneurysm.? Left internal carotid artery: Intracranial segment is patent with no significant stenosis. No aneurysm. Left middle cerebral artery: No occlusion or significant stenosis. No aneurysm. ? Left anterior cerebral artery: No occlusion or significant stenosis. No aneurysm.? POSTERIOR CIRCULATION: Right vertebral artery: No occlusion or significant stenosis. No aneurysm.? Left vertebral artery: No occlusion or significant stenosis. No aneurysm.? Basilar artery: No occlusion or significant stenosis. No aneurysm. Right posterior cerebral artery: No occlusion or significant stenosis. No aneurysm.? Left posterior cerebral artery: No occlusion or significant stenosis. No aneurysm.? Brain: No definite mass, mass effect, or midline shift. Cerebral ventricles: No ventriculomegaly. Paranasal sinuses: Retention cyst or polyp left maxillary sinus. Bones/joints: Unremarkable. No acute fracture. Soft tissues: Unremarkable. IMPRESSION: No large vessel stenosis or occlusion. CTA Neck With Contrast Exam date and time: 01/13/2022 6:41 PM Age: 66 years old Clinical indication: Stroke-like symptoms; Headache and other: Dizzines; Additional info: Dizziness, headache, R/O CVA TECHNIQUE: Imaging protocol: Computed tomographic angiography of the neck with contrast. 3D rendering (Not supervised by radiologist): MIP and/or 3D reconstructed images were created by the technologist. Radiation optimization: All CT scans at this facility use at least one of these dose optimization techniques: automated exposure control; mA and/or kV adjustment per patient size (includes targeted exams where dose is matched to clinical indication); or iterative reconstruction. Contrast material: OMNIPAQUE 350; Contrast volume: 85 ml; Contrast route: INTRAVENOUS (IV);? COMPARISON: CT CHEST WO 05/29/2021 2:54 PM FINDINGS: Right common carotid artery: No stenosis. No dissection or occlusion. Right internal carotid artery: No stenosis of the extracranial segment. No dissection or occlusion. Right external carotid artery: No occlusion or stenosis of the origin.? Left common carotid artery: No stenosis. No dissection or occlusion. Left internal carotid artery: No stenosis of the extracranial segment. No dissection or occlusion. Left external carotid artery: No occlusion or stenosis of the origin.? Right vertebral artery: No stenosis. No dissection or occlusion. Left vertebral artery: No stenosis. No dissection or occlusion. Soft tissues: Normal. No significant soft tissue swelling. Bones/joints: No acute fracture. Lungs: 13 mm pulmonary nodule right upper lobe series 16, image 119 new from previous. 5 mm nodule right upper lobe series 16, image 29. IMPRESSION: 1. No stenosis or occlusion. 2. 13 mm pulmonary nodule right upper lobe series 16, image 119 new from previous. 5 mm nodule right upper lobe series 16, image 29. For both low risk and high risk patients, consider CT Chest at 3 months, PET/CT, or biopsy. (Reference: [facility]) ECG Data Attestation: I personally reviewed and interpreted this ECG (s) as follows: Interpretation: rate of 65, sinus, normal axis, no stemi. <German Benjamin MD - Last Filed: 01/13/22 20:41> 66-year-old male with a history of obesity, hypertension, hyperlipidemia, renal cell carcinoma with left nephrectomy, and history of DVT in June 24 currently on Eliquis who presents with dizziness and fatigue for the past 4 days. Blood pressure hypertensive with systolic in the 160s to 180s and remainder vitals within normal limits. Patient appears generally fatigued but nontoxic. Normal TMs bilaterally. Lungs clear bilaterally. Abdomen soft nontender. No meningeal signs. Differential diagnosis includes dehydration, UTI, pneumonia, CVA, COVID. Lower suspicion for meningitis as he has no report of fever or confusion and has no meningeal signs. History and presentation does not appear consistent with PE and is low risk as he is currently taking anticoagulation and has normal heart rate and oxygen saturation without complaint of chest pain or shortness of breath. We will place an IV, bolus IV fluids, screening labs, IV Tylenol and refer for CTA head and neck, chest x-ray and obtain a fluvid. Labs and imaging reviewed. White blood cell count 11. Lactate 1.5. Troponin negative. Urinalysis notes trace blood but no evidence of infection. Fluvid negative. CT head negative. CTA chest negative for acute findings but does note two right upper lobe pulmonary nodules one of which appears new. Chest x- ray negative. Patient reassessed and he still complaining of some lightheadedness, headache and neck pain. He appears nontoxic. Discussed with patient that his symptoms could be secondary to dehydration or viral illness. Do not see an indication for formal CT chest and abdomen and pelvis at this time as this is scheduled with his oncologist for screening in 2 days. Discussed that if his symptoms do not improve, he may need lumbar puncture to potentially rule out meningitis. Will give additional IV fluids, dose of IV Decadron, meclizine and reassess. Case endorsed to Dr. Benjamin to follow-up on patient response to medications and ambulation trial. If patient improves, likely can discharge to home with plan for follow-up with his primary care doctor and oncologist with plan for CT chest abdomen pelvis on as part of his routine screening and further discussion of the pulmonary nodules noted on CT chest today. pt ambulating and states symptoms resolved, normal gait, no neck stiffness or meninigismus stable vitals. Discussed results with patient and he feels well enough for discharge and feel he is stable for this given reassuring workup, he will f/u with his pcp and specialists and return precautions given HPI <Cheryl Sales DO - Last Filed: 01/15/22 16:18> General Mode of arrival: ambulatory . Date/Time Provider Initiated Documentation: 01/13/22 16:45 . Limitations to Documentation: no limitations . Information obtained by: patient . HPI Narrative: Patient is a 66-year-old male with a history of obesity, hypertension, hy perlipidemia, and renal cell carcinoma status post left nephrectomy, history of DVT in June 2021 currently on Eliquis presents for dizziness and generalized fatigue for the past 4 days. Also admits to mild facial headache and neck pain. He states he recently had a runny nose, cough and nasal congestion which is near resolved. He states he tested negative for COVID during the time of the symptoms. He states he is fully vaccinated for COVID. He denies any known fever, ear pain, chest pain, shortness of breath, abdominal pain, vomiting, diarrhea or urinary symptoms. Related Data Home Medications Medication Instructions Recorded Confirmed diphenhydramine HCl 25 mg capsule 25 mg PO Q6H PRN 04/03/21 01/13/22 (Benadryl) losartan 100 mg tablet 100 mg PO DAILY 04/03/21 01/13/22 amlodipine 10 mg tablet 10 mg PO DAILY 10/20/21 01/13/22 apixaban 5 mg (74 tabs) tablets in See Rx Instructions PO .COMPLEX 10/20/21 01/13/22 a dose pack (Eliquis DVT-PE Treat #74 dose pk 30D Start) budesonide 3 mg 6 mg PO DAILY 01/13/22 01/13/22 capsule,delayed,extended release meclizine 25 mg tablet 25 mg PO TID PRN dizziness #30 tabs 01/13/22 Previous Rx's Medication Instructions Recorded apixaban 5 mg (74 tabs) tablets in See Rx Instructions PO .COMPLEX 10/20/21 a dose pack (Eliquis DVT-PE Treat #74 dose pk 30D Start) meclizine 25 mg tablet 25 mg PO TID PRN dizziness #30 tabs 01/13/22 Allergies Allergy/AdvReac Type Severity Reaction Status Date / Time peanut Allergy Intermediate rash/mouth Unverified 01/13/22 16:47 swelling General Stated Complaint: GenMedical TOSHA: 3 Review of Systems <Cheryl Sales DO - Last Filed: 01/15/22 16:18> All systems reviewed & are unremarkable except as noted in HPI and below Constitutional Constitutional: Denies chills, Denies excessive sweating, Reports fatigue, Denies fever(s), Reports headache(s), Denies weakness and Denies weight loss Eyes Eyes: Reports system reviewed and no additional complaints, except as documented and Denies blurry vision ENT Ears, Nose, Mouth, and Throat: Reports vertigo, Reports dizziness, Denies otalgia, Reports headache(s), Denies nasal congestion, Denies sore throat and Denies throat swelling Cardiovascular Cardiovascular: Denies chest pain, Denies syncope, Denies rapid heart rate and Denies dyspnea Respiratory Respiratory: Denies chest congestion, Denies cough, Denies pain on inspiration and Denies dyspnea Gastrointestinal Gastrointestinal: Denies abdominal pain, Denies diarrhea and Denies vomiting Genitourinary Genitourinary: Denies hematuria, Denies dysuria and Denies flank pain Musculoskeletal Musculoskeletal: Denies back pain and Denies joint swelling Integumentary/Breasts Skin/Breast: Denies lesions and Denies rash Neurologic Neurologic: Denies behavioral changes, Denies confusion, Reports vertigo, Reports dizziness, Denies syncope, Reports headache(s), Denies localized weakness and Denies weakness Psychiatric Psychiatric: Denies behavioral changes, Denies confusion and Denies depression Endocrine Endocrine: Denies excessive sweating and Reports fatigue Hematologic/Lymphatic Hematologic/Lymphatic: Denies easy bruising and Denies lymphadenopathy Allergic/Immunologic Allergic/Immunologic: Denies throat swelling PFSH <Cheryl Sales DO - Last Filed: 01/15/22 16:18> All Active Problems (Updated 01/13/22 @ 20:13 by Cheryl Sales DO) Dizziness (Acute) Fatigue (Acute) Headache (Acute) Umbilical hernia (Acute) Positive fecal occult blood test (Acute) Screening for colon cancer (Acute) Seasonal allergies (Acute) Overweight (Acute) Heart murmur (Acute) Medical History (Updated 01/13/22 @ 20:13 by Cheryl Sales DO) Hyperlipidemia Hypertension Obesity Renal cell carcinoma 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 Surgical History (Updated 01/13/22 @ 17:39 by Cheryl Sales DO) H/O Achilles tendon repair H/O left nephrectomy History of hernia repair Social History Smoking/Tobacco Use Status: Never Smoking risk assessment performed?: Yes Alcohol Intake: former Drug use: Never Substance use type: does not use Details: no alcohol x40 years Household members: spouse Housing: house 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 Exam <Cheryl Sales DO - Last Filed: 01/15/22 16:18> Const General: cooperative Orientation: alert, awake and oriented x3 HENMT Head: normal to inspection Ears: hearing grossly normal bilaterally, external ears normal and TM's normal bilaterally General nose exam: external nose normal Face and sinus: normal facial exam Mouth: oral mucosae normal Teeth and gingiva: dentition normal Eyes General: appearance normal, both eyes and all related structures Eyelids: eyelids normal Pupils: PERRL EOM: EOM intact bilaterally Neck Neck: normal visual inspection Lymphatic: no lymphadenopathy noted Chest Chest: normal inspection of the chest Resp Effort & Inspection: normal respiratory effort and able to speak in complete sentences Auscultation: clear to auscultation bilaterally Cardio Rate: regular rate Rhythm: regular rhythm GI Inspection: normal to inspection Palpation: soft, not firm, no guarding, no hepatosplenomegaly, no masses and nontender Auscultation: hypoactive bowel sounds Skin General skin exam: no rashes or lesions noted Neuro General: patient alert, patient awake, moves all extremities, no meningeal signs and no focal motor deficits Cranial Nerves: CN's II-XI intact bilaterally Cognition: normal cognition Speech: speech normal Gait: normal gait Motor: muscle tone normal throughout and strength 5/5 throughout Sensory Exam: no sensory deficits noted Extrem General: normal to inspection, full ROM and capillary refill normal Other: B/L DP/PT pulses intact. Psych Appearance: grossly normal Mental Status: mental status grossly normal Speech and Movement: speech and movement normal Affect: normal affect Thought Process: normal Course <Cheryl Sales DO - Last Filed: 01/15/22 16:18> Vital Signs Vital signs: Vital Signs Temperature 98.2 F 01/13/22 16:43 Pulse 84 01/13/22 16:43 Respiratory Rate 16 01/13/22 16:43 Blood Pressure 164/77 H 01/13/22 16:43 Pulse Oximetry 98 01/13/22 16:43 Temperature 98.2 F 01/13/22 16:43 Pulse 84 01/13/22 16:43 Respiratory Rate 16 01/13/22 16:43 Respiratory Effort 01/13/22 16:50 Respiratory Depth Normal 01/13/22 16:50 Respiratory Pattern Normal 01/13/22 16:50 Blood Pressure 164/77 H 01/13/22 16:43 Pulse Oximetry 98 01/13/22 16:43 Sign Out <DO Domenica Hurley Last Filed: 01/15/22 16:18> Sign Out Data: Sign Out Comment: History of renal cell carcinoma and L nephrectomy now in remission. Dizziness and fatigue for the past 4 days. No obvious acute findings on work-up today. There are new pulmonary nodules noted on CT cervical spine. Patient reports he has a CT scan of his chest ordered for screening for his renal cell carcinoma on . Suspect dehydration versus viral syndrome. Reassess after medications and attempt ambulation trial. If patient's symptoms have significantly improved, will plan for discharge to home. If he continues to have dizziness and headache, consider lumbar puncture and or formal CT chest abdomen and pelvis imaging if indicated Last updated by Cheryl Sales DO at 01/13/22 20:33
[2022-01-13 17:45] LABS: Abs Immature Grans 0.07 10^3/uL (0.0-0.06); Absolute Basophil Count 0.06 10^3/uL (0.0-0.2); Absolute Eosinophil Count 0.04 10^3/uL (0.0-0.7); Absolute Lymphocyte Count 1.02 10^3/uL (1.2-3.4); Absolute Monocyte Count 0.42 10^3/uL (0.1-0.8); Absolute Neutrophil Count 9.62 10^3/uL (1.2-6.7); Basophils % 0.5; Eosinophils % 0.4; HCT 45.5 % (40.0-50.0); HGB 15.4 g/dL (13.5-17.5); Immature Grans % 0.6; Lactate 1.5 mmol/L (0.6-1.4); Lymphocytes % 9.1; MCH 29.3 pg (27.0-33.0); MCHC 33.8 % (32.0-36.0); MCV 87 fL (80-95); MPV 9.3 fL (8.0-11.0); Monocytes % 3.7; Neutrophils % 85.7; Platelet Count 220 10^3/uL (130-400); RBC 5.26 10^6/uL (4.36-5.78); RDW 13.5 % (11.8-14.1); RDW-SD 42.8 fL; WBC 11.23 10^3/uL (4.4-10.8)
[2022-01-13 17:58] LABS: COVID-19 PCR Negative (Negative); Influenza A PCR Negative (Negative); Influenza B PCR Negative (Negative); RSV PCR Negative (Negative)
[2022-01-13 18:05] LABS: Source Nasopharynx
[2022-01-13 18:06] LABS: ALT 37 U/L (16-63); AST 16 U/L (15-37); Albumin 3.4 g/dL (3.4-5.0); Alkaline Phosphatase 103 U/L (46-116); BUN 24 mg/dL (7-18); Bilirubin, Total 0.3 mg/dL (0.2-1.0); CREATININE 1.2 mg/dL (0.70-1.30); Calcium 9.1 mg/dL (8.5-10.1); Chloride 101 mmol/L (98-107); Glucose 129 mg/dL (74-106); Magnesium 2.1 mg/dL (1.8-2.4); Sodium 137 mmol/L (136-145); Total Protein 7.4 g/dL (6.4-8.2); Troponin I < 50 ng/L (<or=60)
[2022-01-13 18:09] LABS: Bilirubin Negative (Negative); Blood Trace-lysed (Negative); Clarity Clear (Clear); Glucose Negative (Negative); Ketones Negative (Negative); Leukocyte Esterase Negative (Negative); Nitrite Negative (Negative); Urobilinogen 0.2 EU/dL (Up TO 0.2)
[2022-01-13] MEDS: ACETAMINOPHEN 1,000 MG/100 ML BTL 400 MG IVPB (18:15)
[2022-01-13] MEDS: Normal Saline 1,000 ML 1000 ML IV ×2 (18:15→20:03)
[2022-01-13 18:25] LABS: Bacteria Negative HPF (Negative); C & S Indicated? No; Casts Negative LPF (Negative); Crystals Negative HPF (Negative); Epithelial Cells Negative HPF (Negative); Mucus Negative (Negative); Other Cells Negative (Negative); WBC 0-2 HPF (0-5)
[2022-01-13] MEDS: Omnipaque 350 MG/ML 100 ML BTL IV (18:44)
[2022-01-13] MEDS: Normal Saline Flush 10 ML SYR IVP (18:56)
--- NOTE | 2022-01-13 19:27 | DI.VRAD_ITS ---
PROCEDURE INFORMATION: Exam: CTA Head With Contrast, Arteriography Exam date and time: 01/13/2022 6:41 PM Age: 66 years old Clinical indication: Stroke-like symptoms; Headache and other: Dizzines; Additional info: Dizziness, headache, R/O CVA TECHNIQUE: Imaging protocol: Computed tomographic angiography of the head with contrast. Exam focused on the arteries. 3D rendering (Not supervised by radiologist): MIP and/or 3D reconstructed images were created by the technologist. Radiation optimization: All CT scans at this facility use at least one of these dose optimization techniques: automated exposure control; mA and/or kV adjustment per patient size (includes targeted exams where dose is matched to clinical indication); or iterative reconstruction. Contrast material: OMNIPAQUE 350; Contrast volume: 85 ml; Contrast route: INTRAVENOUS (IV); COMPARISON: No relevant prior studies available. FINDINGS: ANTERIOR CIRCULATION: Right internal carotid artery: Intracranial segment is patent with no significant stenosis. No aneurysm. Right middle cerebral artery: No occlusion or significant stenosis. No aneurysm. Right anterior cerebral artery: No occlusion or significant stenosis. No aneurysm. Left internal carotid artery: Intracranial segment is patent with no significant stenosis. No aneurysm. Left middle cerebral artery: No occlusion or significant stenosis. No aneurysm. Left anterior cerebral artery: No occlusion or significant stenosis. No aneurysm. POSTERIOR CIRCULATION: Right vertebral artery: No occlusion or significant stenosis. No aneurysm. Left vertebral artery: No occlusion or significant stenosis. No aneurysm. Basilar artery: No occlusion or significant stenosis. No aneurysm. Right posterior cerebral artery: No occlusion or significant stenosis. No aneurysm. Left posterior cerebral artery: No occlusion or significant stenosis. No aneurysm. Brain: No definite mass, mass effect, or midline shift. Cerebral ventricles: No ventriculomegaly. Paranasal sinuses: Retention cyst or polyp left maxillary sinus. Bones/joints: Unremarkable. No acute fracture. Soft tissues: Unremarkable. IMPRESSION: No large vessel stenosis or occlusion. PROCEDURE INFORMATION: Exam: CTA Neck With Contrast Exam date and time: 01/13/2022 6:41 PM Age: 66 years old Clinical indication: Stroke-like symptoms; Headache and other: Dizzines; Additional info: Dizziness, headache, R/O CVA TECHNIQUE: Imaging protocol: Computed tomographic angiography of the neck with contrast. 3D rendering (Not supervised by radiologist): MIP and/or 3D reconstructed images were created by the technologist. Radiation optimization: All CT scans at this facility use at least one of these dose optimization techniques: automated exposure control; mA and/or kV adjustment per patient size (includes targeted exams where dose is matched to clinical indication); or iterative reconstruction. Contrast material: OMNIPAQUE 350; Contrast volume: 85 ml; Contrast route: INTRAVENOUS (IV); COMPARISON: CT CHEST WO 05/29/2021 2:54 PM FINDINGS: Right common carotid artery: No stenosis. No dissection or occlusion. Right internal carotid artery: No stenosis of the extracranial segment. No dissection or occlusion. Right external carotid artery: No occlusion or stenosis of the origin. Left common carotid artery: No stenosis. No dissection or occlusion. Left internal carotid artery: No stenosis of the extracranial segment. No dissection or occlusion. Left external carotid artery: No occlusion or stenosis of the origin. Right vertebral artery: No stenosis. No dissection or occlusion. Left vertebral artery: No stenosis. No dissection or occlusion. Soft tissues: Normal. No significant soft tissue swelling. Bones/joints: No acute fracture. Lungs: 13 mm pulmonary nodule right upper lobe series 16, image 119 new from previous. 5 mm nodule right upper lobe series 16, image 29. IMPRESSION: 1. No stenosis or occlusion. 2. 13 mm pulmonary nodule right upper lobe series 16, image 119 new from previous. 5 mm nodule right upper lobe series 16, image 29. For both low risk and high risk patients, consider CT Chest at 3 months, PET/CT, or biopsy. (Reference: [facility]) REFERENCES: 1. Radhahoprasanth H, et al. Guidelines for Management of Incidental Pulmonary Nodules Detected on CT Images: From the Fleischner Society 2017. Radiology. 2017;284(1):228-243. 2. NASCET CRITERIA. The degree of stenosis in the cervical segment of the internal carotid artery is based on NASCET criteria. Normal is no stenosis. Mild is less than 50% stenosis. Moderate is 50-69% stenosis. Severe is 70% to 99% stenosis. Total occlusion is no detectable patent lumen. Dictated and Authenticated by: Jd Arevalo MD. Ordering:SANTANA Luna MD
--- NOTE | 2022-01-13 19:29 | DI.VRAD_ITS ---
PROCEDURE INFORMATION: Exam: XR Chest Exam date and time: 01/13/2022 6:57 PM Age: 66 years old Clinical indication: Patient HX: Dizziness, fatigue, R/O pneumonia TECHNIQUE: Imaging protocol: Radiologic exam of the chest. Views: 2 views. COMPARISON: XR PORTABLE CHEST AP 10/20/2021 4:49 PM FINDINGS: Lungs: Unremarkable. No consolidation. Pleural spaces: Unremarkable. No pleural effusion. No pneumothorax. Heart/Mediastinum: Unremarkable. No cardiomegaly. Bones/joints: Unremarkable. IMPRESSION: No acute findings. A a Dictated and Authenticated by: Jd Arevalo MD. Ordering:SANTANA Luna MD
[2022-01-13] MEDS: Meclizine 25 MG TAB PO (20:03)
[2022-01-13] MEDS: Dexamethasone 10 MG/ML VIAL IVP (20:03)
== END 2022-01-13 20:42 | disposition home or self-care (01) ==
PROVIDERS: Physician Assistant; Emergency Provider Emergency Medicine; PCP Family Medicine
DX: R42 Dizziness and giddiness (principal); R53.83 Other fatigue; R51.9 Headache, unspecified; M54.2 Cervicalgia; I10 Essential (primary) hypertension; Z79.01 Long term (current) use of anticoagulants; Z20.822 Contact with and (suspected) exposure to COVID-19; Z86.718 Personal history of other venous thrombosis and embolism
CPT/HCPCS: 70496; 70498; 80053; 87637; 93005; 96361; 96374; 96375; 99284; 99285; 71046; 81003; 81015; 83605; 83735; 84484; 85025; 93010; J0131; J1100; J3490

== ENCOUNTER 2022-01-22 03:51 | Outpatient (CLI) | payer MEDICARE, SELFPAY ==
[2022-01-22 09:50] LABS: ALT 33 U/L (16-63); AST 14 U/L (15-37); Alkaline Phosphatase 90 U/L (46-116); Anion Gap 4.8 mmol/L (3-11); BUN 25 mg/dL (7-18); Bilirubin, Total 0.3 mg/dL (0.2-1.0); CO2 31.2 mmol/L (21.0-32.0); CREATININE 1.3 mg/dL (0.70-1.30); Calcium 8.8 mg/dL (8.5-10.1); Chloride 105 mmol/L (98-107); Estimated GFR 60.59 (mL/min/1.73m2); Glucose 115 mg/dL (74-106); Sodium 141 mmol/L (136-145); Total Protein 6.5 g/dL (6.4-8.2)
[2022-01-22 09:51] LABS: Bilirubin, Direct < 0.1 mg/dL (0.0-0.2)
== END 2022-01-22 03:52 | disposition home or self-care (01) ==
LOC: LBO 03:51
PROVIDERS: PCP Family Medicine; Visit Provider Internal Medicine
DX: C64.2 Malignant neoplasm of left kidney, except renal pelvis (principal); K75.4 Autoimmune hepatitis; R79.89 Other specified abnormal findings of blood chemistry
CPT/HCPCS: 36415; 80053; 80076

== ENCOUNTER 2022-03-17 10:27 | Outpatient (REF) | payer MEDICARE, SELFPAY ==
[2022-03-17 15:09] LABS: ALT 79 U/L (16-63); AST 34 U/L (15-37); Albumin 3.6 g/dL (3.4-5.0); Alkaline Phosphatase 144 U/L (46-116); Anion Gap 4.6 mmol/L (3-11); BUN 20 mg/dL (7-18); Bilirubin, Total 0.4 mg/dL (0.2-1.0); CO2 33.4 mmol/L (21.0-32.0); CREATININE 1.3 mg/dL (0.70-1.30); Calcium 9.2 mg/dL (8.5-10.1); Calculated LDL 202 mg/dL (<100); Chloride 106 mmol/L (98-107); Cholesterol 287 mg/dL (<200); Estimated GFR 60.21 (mL/min/1.73m2); Glucose 102 mg/dL (74-106); HDL Cholesterol 46 mg/dL (40-60); Potassium 4.3 mmol/L (3.5-5.1); Sodium 144 mmol/L (136-145); Total Protein 7.2 g/dL (6.4-8.2); Triglyceride 197 mg/dL (<150)
[2022-03-17 23:19] LABS: PSA, Screening 1.3 ng/mL (<=4.5)
[2022-03-19 05:00] LABS: Vitamin D 25 Total 17.9 ng/mL (30-100)
== END 2022-03-17 10:28 | disposition home or self-care (01) ==
LOC: NCHCN 10:27
PROVIDERS: PCP Family Medicine; Visit Provider Family Medicine
DX: E78.5 Hyperlipidemia, unspecified (principal); K71.6 Toxic liver disease with hepatitis, not elsewhere classified; R60.0 Localized edema; C64.2 Malignant neoplasm of left kidney, except renal pelvis; Z12.5 Encounter for screening for malignant neoplasm of prostate; E55.9 Vitamin D deficiency, unspecified
CPT/HCPCS: 80053; 80061; 82306; 84153

== ENCOUNTER 2022-04-01 03:43 | Outpatient (CLI) | payer MEDICARE, SELFPAY ==
[2022-04-01 14:24] LABS: Abs Immature Grans 0.02 10^3/uL (0.0-0.06); Absolute Eosinophil Count 0.27 10^3/uL (0.0-0.7); Absolute Monocyte Count 0.47 10^3/uL (0.1-0.8); Absolute Neutrophil Count 7.43 10^3/uL (1.2-6.7); Eosinophils % 2.6; HCT 44.4 % (40.0-50.0); HGB 15.1 g/dL (13.5-17.5); Immature Grans % 0.2; Lymphocytes % 20.2; MCH 28.8 pg (27.0-33.0); MCV 85 fL (80-95); MPV 9.5 fL (8.0-11.0); Monocytes % 4.5; Neutrophils % 71.5; Platelet Count 199 10^3/uL (130-400); RBC 5.25 10^6/uL (4.36-5.78); RDW 15.1 % (11.8-14.1); WBC 10.39 10^3/uL (4.4-10.8)
[2022-04-01 15:16] LABS: ALT 68 U/L (16-63); AST 36 U/L (15-37); Albumin 3.5 g/dL (3.4-5.0); Alkaline Phosphatase 162 U/L (46-116); Anion Gap 4.8 mmol/L (3-11); BUN 25 mg/dL (7-18); Bilirubin, Total 0.6 mg/dL (0.2-1.0); CO2 32.2 mmol/L (21.0-32.0); CREATININE 1.8 mg/dL (0.70-1.30); Calcium 8.8 mg/dL (8.5-10.1); Chloride 98 mmol/L (98-107); Estimated GFR 40.75 (mL/min/1.73m2); Glucose 122 mg/dL (74-106); Potassium 3.1 mmol/L (3.5-5.1); Sodium 135 mmol/L (136-145); Total Protein 7.7 g/dL (6.4-8.2)
[2022-04-01 16:47] LABS: ALT 68 U/L (16-63); AST 39 U/L (15-37); Albumin 3.5 g/dL (3.4-5.0); Alkaline Phosphatase 162 U/L (46-116); Bilirubin, Direct 0.1 mg/dL (0.0-0.2); Bilirubin, Total 0.5 mg/dL (0.2-1.0); Total Protein 7.8 g/dL (6.4-8.2)
== END 2022-04-01 03:44 | disposition home or self-care (01) ==
LOC: LBO 03:43
PROVIDERS: Internal Medicine; Student in an Organized Health Care Education/Training Program; PCP Family Medicine; Visit Provider Internal Medicine
DX: C64.2 Malignant neoplasm of left kidney, except renal pelvis (principal); C78.00 Secondary malignant neoplasm of unspecified lung
CPT/HCPCS: 36415; 80053; 80076; 85025

== ENCOUNTER 2022-04-21 18:03 | Outpatient (REF) | payer MEDICARE, SELFPAY ==
[2022-04-21 15:30] LABS: Vitamin D 25 Total 18.1 ng/mL (30-100)
[2022-04-21 15:33] LABS: Ferritin 981 ng/mL (26-388); Folate 9.9 ng/mL (8.6-20.0); Vitamin B12 1097 pg/mL (193-986)
== END 2022-04-21 18:04 | disposition home or self-care (01) ==
LOC: NCHCN 18:03
PROVIDERS: PCP Family Medicine; Visit Provider Family Medicine
DX: K14.6 Glossodynia (principal); Z13.21 Encounter for screening for nutritional disorder
CPT/HCPCS: 82306; 82607; 82728; 82746

== ENCOUNTER 2022-04-29 02:33 | Outpatient (CLI) | payer MEDICARE, SELFPAY ==
[2022-04-29 11:21] LABS: Absolute Basophil Count 0.06 10^3/uL (0.0-0.2); Absolute Eosinophil Count 0.27 10^3/uL (0.0-0.7); Absolute Lymphocyte Count 1.61 10^3/uL (1.2-3.4); Absolute Monocyte Count 0.28 10^3/uL (0.1-0.8); Absolute Neutrophil Count 3.81 10^3/uL (1.2-6.7); Eosinophils % 4.5; HCT 40.6 % (40.0-50.0); HGB 14.2 g/dL (13.5-17.5); Lymphocytes % 26.7; MCH 30.1 pg (27.0-33.0); MCV 86 fL (80-95); MPV 9.4 fL (8.0-11.0); Monocytes % 4.6; Neutrophils % 63.2; Platelet Count 155 10^3/uL (130-400); RBC 4.72 10^6/uL (4.36-5.78); RDW 16.2 % (11.8-14.1); RDW-SD 50.1 fL; WBC 6.03 10^3/uL (4.4-10.8)
[2022-04-29 11:48] LABS: ALT 266 U/L (16-63); AST 103 U/L (15-37); Albumin 3.7 g/dL (3.4-5.0); Alkaline Phosphatase 167 U/L (46-116); Anion Gap 6.8 mmol/L (3-11); BUN 28 mg/dL (7-18); Bilirubin, Direct 0.2 mg/dL (0.0-0.2); Bilirubin, Total 0.7 mg/dL (0.2-1.0); CO2 28.2 mmol/L (21.0-32.0); CREATININE 2.1 mg/dL (0.70-1.30); Chloride 99 mmol/L (98-107); Estimated GFR 33.87 (mL/min/1.73m2); Glucose 151 mg/dL (74-106); Potassium 3.7 mmol/L (3.5-5.1); Sodium 134 mmol/L (136-145); Total Protein 7.6 g/dL (6.4-8.2)
== END 2022-04-29 02:34 | disposition home or self-care (01) ==
PROVIDERS: Internal Medicine; PCP Family Medicine; Visit Provider Internal Medicine
DX: C64.2 Malignant neoplasm of left kidney, except renal pelvis (principal); K75.4 Autoimmune hepatitis; R79.89 Other specified abnormal findings of blood chemistry; C78.01 Secondary malignant neoplasm of right lung
CPT/HCPCS: 36415; 80053; 80076; 85025

== ENCOUNTER 2022-05-06 05:06 | Outpatient (CLI) | payer MEDICARE, SELFPAY ==
[2022-05-06 15:11] LABS: ALT 236 U/L (16-63); AST 79 U/L (15-37); Albumin 3.6 g/dL (3.4-5.0); Alkaline Phosphatase 154 U/L (46-116); Bilirubin, Direct 0.2 mg/dL (0.0-0.2); Bilirubin, Total 0.7 mg/dL (0.2-1.0); Total Protein 7.4 g/dL (6.4-8.2)
== END 2022-05-06 05:07 | disposition home or self-care (01) ==
LOC: LBO 05:06
PROVIDERS: PCP Family Medicine; Visit Provider Internal Medicine
DX: K75.4 Autoimmune hepatitis (principal)
CPT/HCPCS: 36415; 80076

== ENCOUNTER 2022-06-03 04:06 | Outpatient (CLI) | payer MEDICARE, SELFPAY ==
[2022-06-03 12:58] LABS: Abs Immature Grans 0.02 10^3/uL (0.0-0.06); Absolute Basophil Count 0.05 10^3/uL (0.0-0.2); Absolute Lymphocyte Count 1.54 10^3/uL (1.2-3.4); Absolute Monocyte Count 0.26 10^3/uL (0.1-0.8); Absolute Neutrophil Count 3.52 10^3/uL (1.2-6.7); Basophils % 0.9; Eosinophils % 1.8; HCT 38.1 % (40.0-50.0); HGB 12.8 g/dL (13.5-17.5); Immature Grans % 0.4; Lymphocytes % 28.1; MCH 30.8 pg (27.0-33.0); MCHC 33.6 % (32.0-36.0); MCV 92 fL (80-95); MPV 9.3 fL (8.0-11.0); Monocytes % 4.7; Neutrophils % 64.1; Platelet Count 149 10^3/uL (130-400); RBC 4.16 10^6/uL (4.36-5.78); RDW 18.2 % (11.8-14.1); WBC 5.49 10^3/uL (4.4-10.8)
[2022-06-03 13:12] LABS: ALT 151 U/L (16-63); AST 59 U/L (15-37); Albumin 3.6 g/dL (3.4-5.0); Alkaline Phosphatase 117 U/L (46-116); Anion Gap 6.4 mmol/L (3-11); BUN 29 mg/dL (7-18); Bilirubin, Direct 0.2 mg/dL (0.0-0.2); Bilirubin, Total 0.6 mg/dL (0.2-1.0); CO2 28.6 mmol/L (21.0-32.0); CREATININE 1.9 mg/dL (0.70-1.30); Chloride 106 mmol/L (98-107); Estimated GFR 38.19 (mL/min/1.73m2); Glucose 111 mg/dL (74-106); Potassium 3.6 mmol/L (3.5-5.1); Sodium 141 mmol/L (136-145); Total Protein 6.8 g/dL (6.4-8.2)
== END 2022-06-03 04:07 | disposition home or self-care (01) ==
PROVIDERS: Internal Medicine; PCP Family Medicine; Visit Provider Internal Medicine
DX: C78.00 Secondary malignant neoplasm of unspecified lung (principal); C64.9 Malignant neoplasm of unspecified kidney, except renal pelvis; K75.4 Autoimmune hepatitis
CPT/HCPCS: 36415; 80053; 80076; 85025

== ENCOUNTER 2022-06-17 02:05 | Outpatient (CLI) | payer MEDICARE, SELFPAY ==
[2022-06-17 12:35] LABS: ALT 146 U/L (16-63); AST 60 U/L (15-37); Albumin 3.7 g/dL (3.4-5.0); Alkaline Phosphatase 126 U/L (46-116); Bilirubin, Direct 0.2 mg/dL (0.0-0.2); Bilirubin, Total 0.6 mg/dL (0.2-1.0); Total Protein 6.9 g/dL (6.4-8.2)
== END 2022-06-17 02:06 | disposition home or self-care (01) ==
PROVIDERS: PCP Family Medicine; Visit Provider Internal Medicine
DX: K75.4 Autoimmune hepatitis (principal)
CPT/HCPCS: 36415; 80076

== ENCOUNTER 2023-03-30 19:30 | Outpatient (REF) | payer MEDICARE, SELFPAY ==
[2023-03-30 22:41] LABS: PSA, Screening 1.7 ng/mL (<=4.5)
== END 2023-03-30 19:31 | disposition home or self-care (01) ==
LOC: NCHCN 19:30
PROVIDERS: PCP Family Medicine; Visit Provider Family Medicine
DX: Z00.00 Encounter for general adult medical examination without abnormal findings (principal)
CPT/HCPCS: 84153

== ENCOUNTER 2023-08-30 05:48 | Outpatient (CLI) | payer MEDICARE, SELFPAY ==
[2023-08-30 12:43] LABS: Abs Immature Grans 0.02 10^3/uL (0.0-0.06); Absolute Basophil Count 0.07 10^3/uL (0.0-0.2); Absolute Eosinophil Count 0.32 10^3/uL (0.0-0.7); Absolute Lymphocyte Count 1.35 10^3/uL (1.2-3.4); Absolute Monocyte Count 0.33 10^3/uL (0.1-0.8); Absolute Neutrophil Count 5.71 10^3/uL (1.2-6.7); Basophils % 0.9; Eosinophils % 4.1; HCT 41.7 % (40.0-50.0); HGB 13.7 g/dL (13.5-17.5); Immature Grans % 0.3; Lymphocytes % 17.3; MCH 30.6 pg (27.0-33.0); MCHC 32.9 % (32.0-36.0); MCV 93 fL (80-95); MPV 9.5 fL (8.0-11.0); Monocytes % 4.2; Neutrophils % 73.2; Platelet Count 187 10^3/uL (130-400); RBC 4.48 10^6/uL (4.36-5.78); RDW 14.7 % (11.8-14.1); RDW-SD 50.2 fL
[2023-08-30 13:14] LABS: ALT 44 U/L (16-63); AST 25 U/L (15-37); Albumin 3.3 g/dL (3.4-5.0); Alkaline Phosphatase 142 U/L (46-116); Anion Gap 8.3 mmol/L (3-11); BUN 22 mg/dL (7-18); Bilirubin, Total 0.4 mg/dL (0.2-1.0); CO2 27.7 mmol/L (21.0-32.0); CREATININE 1.7 mg/dL (0.70-1.30); Calcium 8.6 mg/dL (8.5-10.1); Chloride 105 mmol/L (98-107); Estimated GFR 43.37 (mL/min/1.73m2); FREE T4 1.15 ng/dL (0.76-1.46); Glucose 122 mg/dL (74-106); Sodium 141 mmol/L (136-145); Total Protein 6.7 g/dL (6.4-8.2)
== END 2023-08-30 05:49 | disposition home or self-care (01) ==
PROVIDERS: Internal Medicine; PCP Family Medicine; Visit Provider Nurse Practitioner
DX: Z79.899 Other long term (current) drug therapy (principal); C78.01 Secondary malignant neoplasm of right lung
CPT/HCPCS: 36415; 80053; 84439; 84443; 85025

== ENCOUNTER 2023-09-29 15:16 | Outpatient (REF) | payer MEDICARE, SELFPAY ==
[2023-09-29 15:47] LABS: ALT 44 U/L (16-63); AST 23 U/L (15-37); Albumin 3.6 g/dL (3.4-5.0); Alkaline Phosphatase 156 U/L (46-116); Anion Gap 8.3 mmol/L (3-11); BUN 26 mg/dL (7-18); Bilirubin, Total 0.4 mg/dL (0.2-1.0); CO2 28.7 mmol/L (21.0-32.0); CREATININE 1.7 mg/dL (0.70-1.30); Calcium 8.4 mg/dL (8.5-10.1); Chloride 105 mmol/L (98-107); Estimated GFR 43.37 (mL/min/1.73m2); Glucose 132 mg/dL (74-106); Potassium 3.5 mmol/L (3.5-5.1); Sodium 142 mmol/L (136-145); Total Protein 6.6 g/dL (6.4-8.2)
[2023-09-29 21:49] LABS: Abs Immature Grans 0.02 10^3/uL (0.0-0.06); Absolute Basophil Count 0.07 10^3/uL (0.0-0.2); Absolute Eosinophil Count 0.46 10^3/uL (0.0-0.7); Absolute Lymphocyte Count 1.41 10^3/uL (1.2-3.4); Absolute Monocyte Count 0.35 10^3/uL (0.1-0.8); Absolute Neutrophil Count 5.75 10^3/uL (1.2-6.7); Basophils % 0.9 %; Eosinophils % 5.7 %; HCT 46.2 % (40.0-50.0); HGB 14.8 g/dL (13.5-17.5); Immature Grans % 0.2 %; Lymphocytes % 17.5 %; MCH 30.3 pg (27.0-33.0); MCV 95 fL (80-95); MPV 10.3 fL (8.0-11.0); Monocytes % 4.3 %; Neutrophils % 71.4 %; Platelet Count 187 10^3/uL (130-400); RBC 4.89 10^6/uL (4.36-5.78); RDW 14.7 % (11.8-14.1); RDW-SD 50.8 fL; WBC 8.06 10^3/uL (4.4-10.8)
== END 2023-09-29 15:17 | disposition home or self-care (01) ==
LOC: NCHCN 15:16
PROVIDERS: PCP Family Medicine; Visit Provider Family Medicine
DX: L30.8 Other specified dermatitis (principal); C64.2 Malignant neoplasm of left kidney, except renal pelvis; E78.5 Hyperlipidemia, unspecified
CPT/HCPCS: 80053; 85025

== ENCOUNTER 2024-02-03 14:59 | Emergency (ER) | payer MEDICARE, SELFPAY ==
[2024-02-03 15:00] VITALS: BP 171/95; PULSE 98; RESP 18; TEMP 36.9
--- NOTE | 2024-02-03 15:30 | DI.US_ITS ---
Exam(s) US ABDOMEN EXAM: US ABDOMEN CLINICAL HISTORY: epigastric abdominal pain. ? cholecystitis TECHNIQUE: Ultrasound abdomen performed using standard protocol. COMPARISON: CT CT ABDOMEN PELVIS WO/W from 05/20/2021 FINDINGS: ABDOMINAL AORTA AND IVC: Visualized portions normal caliber. PANCREAS: Normal where visualized. LIVER: There is increased echogenicity of the liver consistent with fatty infiltration. The liver me asures 17.1 cm long. Hepatopetal flow in the Portal Vein. GALLBLADDER:Cholelithiasis. No evidence of wall thickening. No pericholecystic fluid identified. BILIARY SYSTEM: Common bile duct measures < 7 mm. No intrahepatic biliary ductal dilation. CAMARGO'S SIGN: Negative. KIDNEYS: The right kidney is unremarkable. The patient is status post left nephrectomy. No evidence of renal calculi. No evidence of hydronephrosis. No renal mass or cyst identified. SPLEEN: Not enlarged. ASCITES: None seen. IMPRESSION: 1. Cholelithiasis. Negative Camargo sign. No biliary ductal dilatation. No definite evidence to sug gest acute cholecystitis is seen at this time. 2. Status post left nephrectomy. 3. Fatty infiltration of the liver. DATA REPOSITORY:
--- NOTE | 2024-02-03 15:34 | W.ED.GENAD ---
Discharge Plan Disposition Patient Disposition: Home Discharge Details Chief Complaint: Abd Prob Clinical Impression: Biliary colic, Acute upper abdominal pain Primary Care Provider: Juan Dempsye ED Provider: Gui Benjamin Home Meds and New Rx's Prescriptions: No Action losartan 100 mg tablet 100 mg PO DAILY diphenhydramine HCl [Benadryl] 25 mg capsule 25 mg PO Q6H PRN chlorthalidone 25 mg tablet 25 mg PO DAILY Cabometyx 60 mg tablet 40 mg PO DAILY amlodipine 10 mg tablet 10 mg PO DAILY Patient Comments: TAKE ONE TABLET BY MOUTH EVERY DAY FOR BLOOD PRESSURE Eliquis DVT-PE Treat 30D Start 5 mg (74 tabs) tablets,dose pack See Rx Instructions .ROUTE .COMPLEX Qty: 74 0RF Rx Instructions: orally per package directions budesonide 3 mg capsule,delayed,extend.release 6 mg PO DAILY Patient Comments: TAKE THREE CAPSULES BY MOUTH EVERY MORNING meclizine 25 mg tablet 25 mg PO TID PRN (Reason: dizziness) Qty: 30 0RF Discharge Instructions Instructions: Abdominal pain, Gallstones (DC) Additional Instructions: You were seen in the emergency department for upper abdominal pain. We performed labs that were unremarkable. The ultrasound of your gallbladder showed gallstones but was otherwise unremarkable. We offered CAT scan but your pain completely resolved here and you wanted to hold off on this which I think is very reasonable. I suspect your symptoms are due to biliary colic or your gallbladder jessica onto your gallstones. I would recommend that you meet with general surgery to consider an elective gallbladder removal. You should follow-up with your primary care doctor and oncologist. Return here for recurrent symptoms that do not go away, high fevers or chills, or intractable nausea or vomiting. Return here if you have any other concerns. Referrals: Albino Bartholomew [ [facility]FF PHYSICIAN] - 1 week Sharron Hewitt DO [OSTEOPATHIC DOCTOR] - 2 weeks HPI General Mode of arrival: ambulatory. Date/Time Provider Initiated Documentation: 02/03/24 15:12. Limitations to Documentation: no limitations. Information obtained by: patient and family. HPI Narrative: 68-year-old male obesity, hypertension, hyperlipidemia, renal cell carcinoma with left nephrectomy, and history of DVT on Eliquis is presenting with left upper abdominal pain. States that he has chronic intermittent upper abdominal pain in this area due to a medication he takes for his renal cell carcinoma. Says he had renal cell carcinoma of the left kidney and had nephrectomy 3 years ago. 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 Says that this sometimes due to a side effect causes him to have some left upper abdominal pain. About a week ago was seen by dermatology for a rash on the back of his head and given a few days of doxycycline and he thought that this was worsening his left upper abdominal pain. Stop the doxycycline and the symptoms would away. He has still been taking the Cabometyx. Said today that the left upper abdominal pain came on faster and worse than he had had it previously. Some nausea but no vomiting. No diarrhea or constipation. No fevers or chills. Says it just hurts there but he is not tender. Said that he took some Tylenol with significant improvement in the pain but was worried and came to the emergency department to be evaluated. Denying any other complaints. Says the left upper abdominal pain has dramatically improved. Related Data Home Medications ?Medication ?Instructions ?Recorded ?Confirmed diphenhydramine HCl 25 mg capsule 25 mg PO Q6H PRN 04/03/21 02/03/24 (Benadryl) losartan 100 mg tablet 100 mg PO DAILY 04/03/21 02/03/24 amlodipine 10 mg tablet 10 mg PO DAILY 10/20/21 02/03/24 apixaban 5 mg (74 tabs) tablets in See Rx Instructions PO .COMPLEX 10/20/21 02/03/24 a dose pack (Eliquis DVT-PE Treat #74 dose pk 30D Start) budesonide 3 mg 6 mg PO DAILY 01/13/22 02/03/24 capsule,delayed,extended release meclizine 25 mg tablet 25 mg PO TID PRN dizziness #30 tabs 01/13/22 02/03/24 chlorthalidone 25 mg tablet 25 mg PO DAILY 04/30/22 02/03/24 cabozantinib 60 mg tablet 40 mg PO DAILY 05/27/22 02/03/24 (Cabometyx) Previous Rx's ?Medication ?Instructions ?Recorded apixaban 5 mg (74 tabs) tablets in See Rx Instructions PO .COMPLEX 10/20/21 a dose pack (Eliquis DVT-PE Treat #74 dose pk 30D Start) meclizine 25 mg tablet 25 mg PO TID PRN dizziness #30 tabs 01/13/22 Allergies Allergy/AdvReac Type Severity Reaction Status Date / Time peanut Allergy Intermediate rash/mouth Unverified 02/03/24 15:02 swelling General Stated Complaint: Abd Prob TOSHA: 3 Review of Systems Constitutional Constitutional: Denies chills, Denies fever(s) and Denies headache(s) Eyes Eyes: Denies change in vision ENT Ears, Nose, Mouth, and Throat: Denies headache(s) and Denies odynophagia Cardiovascular Cardiovascular: Denies chest pain and Denies dyspnea Respiratory Respiratory: Denies dyspnea Gastrointestinal Gastrointestinal: Reports abdominal pain, Denies diarrhea, Reports nausea, Denies odynophagia and Denies vomiting Genitourinary Genitourinary: Denies dysuria Musculoskeletal Musculoskeletal: Denies myalgias Integumentary/Breasts Skin/Breast: Denies changing lesions Neurologic Neurologic: Denies behavioral changes and Denies headache(s) Psychiatric Psychiatric: Denies behavioral changes Endocrine Endocrine: Denies heat intolerance Hematologic/Lymphatic Hematologic/Lymphatic: Denies lymphadenopathy Exam Const General: cooperative Nutritional Appearance: average body habitus Orientation: alert, awake and oriented x3 HENMT Head: normal to inspection Ears: external ears normal Mouth: moist mucous membranes Eyes Pupils: PERRL EOM: EOM intact bilaterally and No nystagmus Neck Neck: full ROM and no tracheal deviation Chest Chest: normal inspection of the chest Resp Auscultation: clear to auscultation bilaterally Cardio Rate: regular rate Rhythm: regular rhythm GI Inspection: normal to inspection Palpation: soft, no guarding, not rigid and nontender Back/Spine/Pelvis Back: No no CVA tenderness Thoracic/Lumbar Spine: thoracic and lumbar spine normal to inspection Skin General skin exam: no rashes or lesions noted Neuro General: patient alert, patient awake and patient oriented x3 Cranial Nerves: CN's II-XI intact bilaterally, PERRL and no nystagmus Cognition: normal cognition Motor: muscle tone normal throughout and strength 5/5 throughout Sensory Exam: no sensory deficits noted Extrem General: normal to inspection Course Vital Signs Vital signs: Vital Signs Temperature 36.9 C 02/03/24 15:00 Pulse 98 H 02/03/24 15:00 Respiratory Rate 18 02/03/24 15:00 Blood Pressure 171/95 H 02/03/24 15:00 Temperature 36.9 C 02/03/24 15:00 Pulse 98 H 02/03/24 15:00 Respiratory Rate 18 02/03/24 15:00 Respiratory Effort Normal, Non-Labored 02/03/24 15:04 Blood Pressure 171/95 H 02/03/24 15:00 Oxygen Delivery Method Room Air 02/03/24 15:00 Oxygen Flow Rate 0 02/03/24 15:00 Pain Level 7 02/03/24 15:27 Medical Decision Making This is a 68-year-old male hx obesity, hypertension, hyperlipidemia, renal cell carcinoma s/p left nephrectomy but with metastatic disease to lungs but controlled on Cabometyx (follows [facility]), and history of DVT on Eliquis is presenting with left upper abdominal pain. Not tender on examination to suggest intra-abdominal abscess or obstruction. He thinks that this is a side effects of his Cabometyx but it was worse than before and was worried and started coming to the hospital but pain improved with Tylenol. I still offered to perform CT scan of the abdomen and pelvis for the patient but he would like to hold off as he deals with this chronically and feels like it is markedly improved. He says that he supposed to get a CT for screening of his lung mass and renal cell carcinoma of the chest abdomen pelvis in [place] in 2 weeks and would like to hold off. Given no tenderness and no fever I think that this is reasonable especially in the context of his improved symptoms. Will check biliary labs to look for signs of hepatitis, pancreatitis, or other biliary obstruction. Will send broad labs to look for electrolyte or metabolic derangements that could be contributing which I think is less likely. Will get ultrasound of the gallbladder though no right upper quadrant tenderness so doubt cholecystitis or biliary obstruction but will reevaluate after labs and ultrasound. Offered him analgesia but says the pain is markedly improved and would like to hold off at this time. I have ordered these in case the patient changes his mind and does want something additionally for pain. Will await initial testing and reevaluate. 436pm Labs mostly unremarkable with chronic kidney disease at baseline. Other labs grossly unremarkable. No leukocytosis. Ultrasound is showing some gallstones with small amount of gallbladder wall thickening but no positive Camargo sign and no significant pericholecystic fluid. No signs of biliary obstruction. His symptoms are completely resolved. I do think it is more chronic symptoms and his presentation today could be secondary to biliary colic. I will refer him to general surgery and back to his primary care doctor and oncologist. He is okay with this plan. Symptom-free. Refused the pain and nausea medications here because pain completely resolved. Will discharge with return precautions. Imaging Data Radiologic Study: Attestation: I personally reviewed and interpreted this imaging study as follows: Imaging: Ultrasound (abdomen) My impression: Gallstones present. No pericholecystic fluid. Otherwise unremarkable ultrasound of the gallbladder. Lab Data Lab results reviewed: Yes I reviewed the patient's lab results. Lab results narrative: Chronic kidney disease at baseline. Mild elevation in AST and ALT consistent with priors. No other signs of biliary obstruction. No leukocytosis. Otherwise unremarkable labs. Quality:SDOH Health Related Social Needs: No Data to Display PFSH All Active Problems (Updated 02/03/24 @ 16:40 by Gui Benjamin MD) Acute upper abdominal pain (Acute) Biliary colic (Acute) Sensorineural hearing loss (SNHL) of both ears (Acute) Umbilical hernia (Acute) Positive fecal occult blood test (Acute) Screening for colon cancer (Acute) Seasonal allergies (Acute) Overweight (Acute) Heart murmur (Acute) Medical History Toxic hepatitis Acute DVT (deep venous thrombosis) Peripheral edema Burning mouth syndrome Ingrown toenail Dizziness 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 Obesity Renal cell carcinoma Hyperlipidemia Hypertension Surgical History H/O Achilles tendon repair H/O left nephrectomy History of hernia repair Social History Smoking/Tobacco Use Status: Never Smoking risk assessment performed?: Yes Alcohol Intake: former Drug use: Never Substance use type: does not use Details: no alcohol x40 years Household members: spouse Housing: house 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
[2024-02-03 15:48] LABS: Abs Immature Grans 0.01 10^3/uL (0.0-0.06); Absolute Basophil Count 0.05 10^3/uL (0.0-0.2); Absolute Eosinophil Count 0.12 10^3/uL (0.0-0.7); Absolute Lymphocyte Count 0.77 10^3/uL (1.2-3.4); Absolute Monocyte Count 0.28 10^3/uL (0.1-0.8); Absolute Neutrophil Count 5.71 10^3/uL (1.2-6.7); Basophils % 0.7 %; Eosinophils % 1.7 %; HCT 44.2 % (40.0-50.0); HGB 14.6 g/dL (13.5-17.5); Immature Grans % 0.1 %; Lymphocytes % 11.1 %; MCH 29.9 pg (27.0-33.0); MCV 90 fL (80-95); MPV 9.2 fL (8.0-11.0); Neutrophils % 82.4 %; Platelet Count 184 10^3/uL (130-400); RBC 4.89 10^6/uL (4.36-5.78); RDW 14.9 % (11.8-14.1); RDW-SD 49.5 fL; WBC 6.94 10^3/uL (4.4-10.8)
[2024-02-03 16:06] LABS: ALT 77 U/L (16-63); AST 90 U/L (15-37); Albumin 3.6 g/dL (3.4-5.0); Alkaline Phosphatase 211 U/L (46-116); Anion Gap 8.4 mmol/L (3-11); BUN 28 mg/dL (7-18); Bilirubin, Total 0.76 mg/dL (0.2-1.0); CO2 26.6 mmol/L (21.0-32.0); CREATININE 1.7 mg/dL (0.70-1.30); Calcium 9.1 mg/dL (8.5-10.1); Chloride 102 mmol/L (98-107); Estimated GFR 43.37 (mL/min/1.73m2); Glucose 138 mg/dL (74-106); Lipase 60 U/L (16-77); Magnesium 2.1 mg/dL (1.8-2.4); Potassium 3.4 mmol/L (3.5-5.1); Sodium 137 mmol/L (136-145); Total Protein 7.4 g/dL (6.4-8.2)
--- OUTSIDE RECORDS SUMMARY | 2024-02-03 16:50 | XMS_ITS | Encounter Summary ---
Author Organization [facility] [place] [address] Care Team Providers Care Employee Communications Specialist Name Role Phone Juan Dempsey MD Primary Care Provider [phone] Encounter Details Date Type Department Care Team (Latest Contact Info) Description 12/08/2023 11:49 AM EDT - 12/08/2023 11:59 PM EDT Hospital Encounter Hematology [place] [phone] Metastatic 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, unspecified laterality; High risk medication use; Abnormal thyroid function test; Renal cell carcinoma of left kidney Discharge Disposition: Home Social History Tobacco Use Types Packs/Day Years Used Date Smoking Tobacco: Never Smokeless Tobacco: Never Alcohol Use Standard Drinks/Week Comments Never 0 (1 standard drink = 0.6 oz pur e alcohol) Overall Financial Resource Strain (CARDIA) Sergio r Date Recorded How hard is it for you to pa y for the very basics like food, housing, medical care, and heating? Not very hard 07/09/2021 Hunger Vital Sign Answer Date Recorded Within the past 12 months, y ou worried that your food would run out before you got the money to buy more. Never true 07/10/19 22 Within the past 12 months, t he food you bought just didn't last and you didn't have money to get more. Never true 07/09/2021 PRAPARE - Transportation Answer Date Re corded In the past 12 months, has l ack of transportation kept you from medical appointments or from getting medications? No 01/2022 In the past 12 months, has l ack of transportation kept you from meetings, work, or from getting things needed for daily living? No 07/09/2021 Housing Stability Vital Sign Answer Dennis e Recorded In the last 12 months, was t here a time when you were not able to pay the mortgage or rent on time? No 07/09/2021 In the last 12 months, how many places have you lived? 1 07/09/2021 In the last 12 months, was t here a time when you did not have a steady place to sleep or slept in a snf (including now)? No 07/09/2021 Sex and Gender Information Value Date Recorded Sex Assigned at Male 05/23/2021 10:26 AM EST Gender Identity Not on file Sexual Orientation Not on file documented as of this encounter Medications at Time of Discharge Medication Sig Dispensed Refills Start Date End Date cabozantinib (Cabometyx) 20 mg tabletIndications:fatmata l cell carcinoma Take daily 5 days/week, then hold for 2 days/week. Take on an empty stomach. Call clinic before starting medication. Indications: renal cell carcinoma 20 tablet 5 11/15/2023 triamcinolone (Kenalog) 0.1 % Cream Apply topically 2 times daily as needed. Apply to the most itchy/bothersome areas twice daily as needed. 80 g 3 09/30/2023 camphor-menthoL (Sarna) Lotion Apply topically as needed for Itching (Apply to the less itch/bothersome areas as needed). 222 mL 3 09/30/2023 hydrOXYzine (Atarax) 25 mg tablet Take 1 tablet by mouth 3 times daily as needed for Itching. 30 tablet 12 09/30/2023 levothyroxine (Synthroid) 75 mcg tablet Take 1 tablet by mouth daily. 30 tablet 5 08/26/2023 chlorthalidone (Hygroten) 25 mg Tablet Take 25 mg by mouth daily. meclizine (Antivert) 25 mg Tablet Take 25 mg by mouth 3 times daily as needed. Eliquis 5 mg Tablet Take 5 mg by mouth 2 times daily. 10/21/2021 amLODIPine (Norvasc) 10 mg Tablet TAKE ONE TABLET BY MOUTH EVERY DAY FOR BLOOD PRESSURE 09/02/2021 diphenhydrAMINE (Benadryl) 25 mg Capsule Take 25 mg by mouth every 6 hours as needed for Itching. For seasonal allergies acetaminophen (Tylenol) 325 mg Tablet Take 2-3 tablets by mouth every 6 hours as needed for Pain. 06/27/2021 losartan (COZAAR) 100 mg Tablet Take 100 mg by mouth daily. 04/11/2019 potassium chloride ER (Klor-Con M) 10 mEq ER micro-encapsulated crystal tablet Take 1 tablet by mouth 2 times daily. 60 tablet 1 11/02/2023 01/18/2024 documented as of this encounter Plan of Treatment Upcoming Encounters Date Type Department Care Team (Late st Contact Info) Description 02/16/2024 9:15 AM EDT Laboratory Appointment Lab at [facility] Hematology Oncology [address] [place] [address] 02/16/2024 10:20 AM EDT Hospital Encounter [place] [phone] Mitali Griffiths APRN [facility] [place] [address] 02/16/2024 1:30 PM EDT Office Visit Hematology [place] [phone] Albino Bartholomew MD [facility] [address] [place] [address] 04/17/2024 10:00 AM EST Office Visit Dermatology at [facility] [address] [place] [phone] Oli Winter MD [address] [facility] [place] [address] documented as of this encounter Procedures Procedure Name Priority Date/Time Associated Diagnosis Comments CBC (WITH DIFF) Routine 12/08/2023 11:56 AM EDT Metastatic 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, unspecified laterality TSH Routine 12/08/2023 11:56 AM EDT Metastatic 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, unspecified laterality High risk medication use Abnormal thyroid function test T4, FREE Routine 12/08/2023 11:56 AM EDT Metastatic 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, unspecified laterality High risk medication use Abnormal thyroid function test MAGNESIUM Add-On 12/08/2023 11:56 AM EDT Renal cell carcinoma of left kidney COMPREHENSIVE METABOLIC PANEL Routine 12/08/2023 11:56 AM EDT Metastatic 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, unspecified laterality documented in this encounter Results * Magnesium (12/08/2023 11:56 AM EDT) Magnesium 0.90 0.69 - 1.07 mMol/L 12/08/2023 4:48 PM EDT [facility] Blood VENOUS BLOOD SPECIMEN / Unknown Venipuncture / Unknown 12/08/2023 11:56 AM EDT 12/08/2023 11:56 AM EDT Mitali Griffiths APRN [place] [address] * T4, free (12/08/2023 11:56 AM EDT) Free T4 1.58 0.93 - 1.70 ng/dL 12/08/2023 12:43 PM EDT [facility] Blood VENOUS BLOOD SPECIMEN / Unknown Venipuncture / Unknown 12/08/2023 11:56 AM EDT 12/08/2023 11:56 AM EDT Albino Bartholomew MD CHEMISTRY ORDERABLES [facility] [place] [address] * TSH (12/08/2023 11:56 AM EDT) [facility] Thyroid Stimulating Hormone 3.07 0.27 - 4.20 mcIU/mL 12/08/2023 12:43 PM EDT [facility] Blood VENOUS BLOOD SPECIMEN / Unknown Venipuncture / Unknown 12/08/2023 11:56 AM EDT 12/08/2023 11:56 AM EDT Albino Bartholomew MD CHEMISTRY ORDERABLES [facility] [place] [address] * (ABNORMAL) Comprehensive metabolic panel (12/08/2023 11:56 AM EDT) [facility] Glucose 80 65 - 199 mg/dL 12/08/2023 12:43 PM EDT [facility] Comment:Glucose Concentratio n >=200 mg/dL plus symptoms is consistent with Diabetes Mellitus. Blood Urea Nitrogen 22(H) 10 - 20 mg/dL 12/08/2023 12:43 PM EDT [facility] Creatinine 1.52(H) 0.80 - 1.50 mg/dL 12/08/2023 12:43 PM EDT [facility] Sodium 141 135 - 145 mMol/L 12/08/2023 12:43 PM EDT [facility] Potassium 4.0 3.5 - 5.0 mMol/L 12/08/2023 12:43 PM EDT [facility] Chloride 104 98 - 107 mMol/L 12/08/2023 12:43 PM EDT [facility] Carbon Dioxide 29 22 - 31 mMol/L 12/08/2023 12:43 PM EDT [facility] Anion Gap 8 5 - 15 mMol/L 12/08/2023 12:43 PM EDT [facility] Calcium 9.5 8.5 - 10.5 mg/dL 12/08/2023 12:43 PM EDT [facility] Protein, Total 6.8 6.1 - 8.0 g/dL 12/08/2023 12:43 PM T [facility] Albumin 4.0 3.2 - 5.2 g/dL 12/08/2023 12:43 PM EDT [facility] Aspartate Aminotransferase 23 <=39 unit/L 12/08/2023 12:43 PM EDT [facility] Alanine Aminotransferase 29 0 - 55 unit/L 12/08[facility]2023 12[facility] Alkaline Phosphatase 153(H) 40 - 130 unit/L 12/08/2023 12:43 PM EDT [facility] Bilirubin, Total 0.3 <=1.3 mg/dL 12/08/2023 12:43 PM [facility] Est Glomerular Filtration Rate - Male 50 mL/min/1. 73 m?? 12/08/2023 12:43 PM [facility] Comment: This patient's estimated GFR was calculated using the 2020 CKD-EPI equation. The estimated GFR can vary from the measured GFR by up to 30% in the absence of rapidly changing kidney function. Assessment of the estimated GFR is not appropriate when creatinine concentrations are rapidly changing. For clinical situations in which a more precise estimate of GFR is necessary, consider alternative methods of GFR estimation such as a 24-hour urine creatinine clearance. Assignment of CKD stage 1 - 5 for patients with an eGFR near the transition point between stages may be based on clinical assessment of muscle mass and symptoms in addition to eGFR. Link: eGFR Calculator [employer] Fasting Status No 12/08/2023 12:43 PM T [facility] Blood VENOUS BLOOD SPECIMEN / Unknown Venipuncture / Unknown 12/08/2023 11:56 AM EDT 12/08/2023 11:56 AM EDT Albino Bartholomew MD CHEMISTRY ORDERABLES [facility] [place] [address] * (ABNORMAL) CBC (with Diff) (12/08/2023 11:56 AM EDT) White Blood Cell 8.63 4.00 - 9.50 x10(3)/mc L 12/08/2023 12:11 PM [facility] Red Blood Cell 4.97 4.58 - 5.54 x10(6)/mc L 12/08/2023 12:11 PM [facility] Hemoglobin 14.6 13.7 - 16.5 g/dL 12/08/2023 12:11 PM [facility] Hematocrit 45.3 40.5 - 48.5 % 12/08/2023 12:11 PM [facility] Mean Cell Volume 91.1 82.9 - 93.1 fL 12/08/2023 12:11 PM [facility] Mean Cell Hemoglobin 29.4 27.5 - 32.1 pg 12/08/2023 12:11 PM [facility] Mean Cell Hemoglobin Concentration 32.2 32.0 - 35.7 g/dL 12/08/2023 12:11 PM [facility] Platelet 202 145 - 357 x10(3)/mc L 12/08/2023 12:11 PM [facility] Mean Platelet Volume 9.7 7.6 - 12.9 fL 12/08/2023 12:11 PM [facility] RDW Standard Deviation 48.9(H) 36.0 - 45.0 fL 12/08/2023 12:11 PM [facility] RDW coefficient of variation 14.7(H) 11.4 - 13.8 % 12/08/2023 12:11 PM [facility] NRBC% auto 0.0 % 12/08/2023 12:11 PM [facility] NRBC Absolute 0.00 0.00 - 0.00 x10(3)/mc L 12/08/2023 12:11 PM [facility] Neutrophil % 69.0 % 12/08/2023 12:11 PM EDT [facility] Neutrophil Absolute (ANC) - Automated 5.96 1.70 - 6.10 x10(3)/mc L 12/08/2023 12:11 PM EDT [facility] Lymph % 20.5 % 12/08/2023 12:11 PM EDT [facility] Lymph Absolute 1.77 0.90 - 3.20 x10(3)/mc L 12/08/2023 12:11 PM EDT [facility] Monocyte % 5.6 % 12/08/2023 12:11 PM EDT [facility] Monocyte Absolute 0.48 0.30 - 0.90 x10(3)/mc L 12/08/2023 12:11 PM EDT [facility] Eos % 3.2 % 12/08/2023 12:11 PM EDT [facility] Eos Absolute 0.28 0.00 - 0.40 x10(3)/mc L 12/08/2023 12:11 PM EDT [facility] Basophil % 1.2 % 12/08/2023 12:11 PM EDT [facility] Baso Absolute 0.10 0.00 - 0.10 x10(3)/mc L 12/08/2023 12:11 PM EDT [facility] Immature Gran % 0.5 % 12:11 PM EDT [facility] Immature Gran Absolute 0.04 0.00 - 0.04 x10(3)/mc L 12/08/2023 12:11 PM EDT [facility] Blood VENOUS BLOOD SPECIMEN / Unknown Venipuncture / Unknown 12/08/2023 11:56 AM EDT 12/08/2023 11:56 AM EDT Albino Bartholomew MD HEMATOLOGY ORDERABLE S [facility] [place] [address] documented in this encounter Visit Diagnoses Diagnosis Metastatic 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, unspecified laterality High risk medication use Encounter for long-term (current) use of other medications Abnormal thyroid function test Nonspecific abnormal results of thyroid function study Renal cell carcinoma of left kidney documented in this encounter Care Teams Employee Communications Specialist Relationship Specialty Start Date End Date Juan Dempsey MD [address] [place] [address] PCP - General Emergency Medicine 08/20/21 documented as of this encounter
--- OUTSIDE RECORDS SUMMARY | 2024-02-03 16:50 | XMS_ITS | Encounter Summary ---
Author Organization [facility] Address [facility] [place] [address] Care Team Providers Care Water Softener Servicer Name Role Phone Juan Dempsey MD Primary Care Provider [phone] Encounter Details Date Type Department Care Team (Latest Contact Info) Description 12/08/2023 Travel Social History Tobacco Use Types Packs/Day Years Used Date Smoking Tobacco: Never Smokeless Tobacco: Never Alcohol Use Standard Drinks/Week Comments Never 0 (1 standard drink = 0.6 oz pur e alcohol) Overall Financial Resource Strain (CARDIA) Answe r Date Recorded How hard is it [...] place to sleep or slept in a prison (including now)? No 07/09/2021 Sex and Gender Information Value Date Recorded Sex Assigned at Male 05/23/2021 10:26 AM EST Gender Identity Not on file Sexual Orientation Not on file documented as of this encounter Plan of Treatment Upcoming Encounters Date Type Department Care Team (Late st Contact Info) Description 02/16/2024 9:15 AM EDT Laboratory Appointment Lab at [facility] Hematology Oncology [address] [place] [address] 02/16/2024 10:20 AM EDT Hospital [place] [phone] Mitali Griffiths APRN [facility] DR [place] [address] 02/16/2024 1:30 PM EDT Office Visit [place] [address] Albino Bartholomew MD [facility] [address] [place] [address] 04/17/2024 10:00 AM EST Office Visit Dermatology at [facility] [address] [place] [address] Oli Winter MD [address] [facility] [place] [address] documented as of this encounter Visit Diagnoses Not on filedocumented in this encounter Care Teams Water Softener Servicer Relationship Specialty Start Date End Date Juan Dempsey MD [address] [place] [address] PCP - General Emergency Medicine 08/20/21 documented as of this encounter
--- OUTSIDE RECORDS SUMMARY | 2024-02-03 16:50 | XMS_ITS | Encounter Summary ---
Author Organization [facility] Address [facility] [place] [address] Care Team Providers Care Turpentine Distiller Name Role Phone Juan Dempsey MD Primary Care Provider [phone] Encounter Details Date Type Department Care Team (Latest Contact Info) Description 01/17/2024 Specialty [place] [phone] Jonas Vásquez, LANDSCAPE TECHNICIAN Refill Coordination - 28 day recurrence (cabozantinib s-malate) for HemOnc Social History Tobacco Use Types Packs/Day Years [...] place to sleep or slept in a halfway (including now)? No 07/09/2021 Sex and Gender Information Value Date Recorded Sex Assigned at Male 05/23/2021 10:26 AM EST Gender Identity Not on file Sexual Orientation Not on file documented as of this encounter Progress Notes * Jonas Vásquez CPHT - 01/17/2024 9:08 AM EDT Clinical Management Plan: Refill Specialty Pharmacy Consultation; Jonas Vásquez CPHT Comprehensive Medication Management (CMM) Mr. Cristofer Tenorio is a 68 y.o. (1955) male who was contacted in regard to a specialty medication refill reminder. The patient requested a refill of Cabozantinib S-Malate. A review of the medication therapy was performed. The medication was refilled as scheduled, and all medication related questions and concerns were addressed. The specialty pharmacy staff will follow up with the patient 5-7 days prior to next refill. Was a change made to the Care Plan: No Medication Therapy Recommendations No medication therapy recommendations to display Allergies and Drug intolerance: Allergies Allergen Reactions Grass Pollen-Orchardgrass, Standard Peanut Medication Reconciliation Discrepancies (compared to [facility] med list) No Review Flowsheet 01/17/2024 9:08 AM Assessment What is the name of the specialty medication you are refilling? Cabometyx Are you taking any new medications? No Any new medical conditions? No Any new allergies? No Any new side effects that are bothersome? No Any missed doses since your last fill? 0 How many doses do you have remaining on hand? 6 Would you like a pharmacist to reach out to you to answer any questions? No What date will you need this fill by? 01/25/2024 Adherence: Any missed doses? No Patient understands no changes to current drug regimen were made. Jonas Vásquez CPHT 01/17/24 9:09 AM documented in this encounter Plan of Treatment Upcoming Encounters Date Type Department Care Team (Late st Contact Info) Description 02/16/2024 9:15 AM EDT Laboratory Appointment Lab at [facility] Hematology Oncology [address] [place] [address] 02/16/2024 10:20 AM EDT Hospital Encounter CT Scan at [place] [phone] Mitali Griffiths APRN [facility] [place] [address] 02/16/2024 1:30 PM EDT Office Visit Hematology and Oncology at [place] [phone] Albino Bartholomew MD [facility] [place] [address] 04/17/2024 10:00 AM EST Office Visit Dermatology at [facility] [address] [place] [address] Oli Winter MD [address] [facility] [place] [address] documented as of this encounter Goals Goal Patient Goal Type Associated Problems Recent Progress Patient-Stated? Author Patient's specific desired goal: Patient Facing Action Plan Sharda Lozano, [facility] Note: Remain 95% or more adherent to oral chemotherapy over the next year as measured by refill history documented as of this encounter Visit Diagnoses Not on filedocumented in this encounter Care Teams Turpentine Distiller Relationship Specialty Start Date End Date Juan Dempsey MD [address] [place] [address] PCP - General Emergency Medicine 08/20/21 documented as of this encounter
--- OUTSIDE RECORDS SUMMARY | 2024-02-03 16:50 | XMS_ITS | Encounter Summary ---
Author Organization [facility] Address [facility] [place] [address] Care Team Providers Care Hot Knife Foxing Cutter Name Role Phone Juan Dempsey MD Primary Care Provider [phone] Encounter Details Date Type Department Care Team (Late st Contact Info) Description 01/31/[address] [place] [address] Suzy Suarez LPN Social History Tobacco Use Types Packs/Day Years Used Date Smoking Tobacco: Never Smokeless Tobacco: Never Alcohol Use Standard Drinks/Week Comments Never 0 (1 standard drink = 0.6 oz pur e alcohol) Overall Financial Resource Strain (CARDIA) Fabye r Date Recorded How hard is it [...] medical appointments or from getting medications? No 03/0 01/2022 In the past 12 months, has [...] place to sleep or slept in a care home (including now)? No 07/09/2021 Sex and Gender Information Value Date Recorded Sex Assigned at Male 05/23/2021 10:26 AM EST Gender Identity Not on file Sexual Orientation Not on file documented as of this encounter Miscellaneous Notes * Telephone Encounter - Suzy Suarez LPN - 01/31/2024 4:54 PM EDT Spoke with Cristofer's regarding the abdominal pain he has been having while taking Doxycycline. Cristofer was the ref for a soccer game and couldn't take the call. He does take the Doxycycline after eating a good hearty meal in the morning and the evening but has notice increased stomach pain. He will hold the Doxycycline for now. Message is being sent to Dr. Winter for a plan. documented in this encounter Plan of Treatment Upcoming Encounters Date Type Department Care Team (Late st Contact Info) Description 02/16/2024 9:15 AM EDT Laboratory Appointment Lab at [facility] Hematology Oncology [address] [place] [address] 02/16/2024 10:20 AM EDT Hospital [place] [address] Mitali Griffiths APRN [facility] [address] [place] [address] 02/16/2024 1:30 PM EDT Office Visit Hematology [place] [address] Albino Bartholomew MD [facility] DR HEMATOLOGY [place] [address] 04/17/2024 10:00 AM EST Office Visit Dermatology at [facility] [address] [place] [address] Oli Winter MD [address] [facility] [place] [address] documented as of this encounter Goals Goal Patient Goal Type Associated Problems Recent Progress Patient-Stated? Author Patient's specific desired goal: Patient Facing Action Plan Sharda Lozano, [facility] Note: Remain 95% or more adherent to oral chemotherapy over the next year as measured by refill history documented as of this encounter Visit Diagnoses Not on filedocumented in this encounter Care Teams Hot Knife Foxing Cutter Relationship Specialty Start Date End Date Juan Dempsey MD [address] [place] [address] PCP - General Emergency Medicine 08/20/21 documented as of this encounter
--- OUTSIDE RECORDS SUMMARY | 2024-02-03 16:50 | XMS_ITS | Encounter Summary ---
Author Organization [facility] [place] [address] Care Team Providers Care Seconds Grader Name Role Phone Juan Dempsey MD Primary Care Provider [phone] Reason for Referral * Diagnostic Test (Routine) - Authorized Specialty Diagnoses / Procedures Referred By Burak mcnair Referred To Contact Radiology Diagnoses Renal cell carcinoma of left kidney Procedures CT Chest Abdomen Pelvis w Contrast (Generic) Mitali Griffiths APRN [facility] [place] [address] [facility] [place] [address] Referral ID Status Reason Start Date Expiration Date Visits Requested Visits Authorized [id number] Authorized Specialty Service Requested 12/08/2023 06/09/2025 1 1 Reason for Visit * Reason Comments Follow-up Encounter Details Date Type Department Care Team (Late st Contact Info) Description 12/08/2023 1:30 PM EDT Office Visit Hematology [place] [address] Mitali Griffiths APRN [facility] [address] [place] [address] Renal cell carcinoma of left kidney; Medication management; High risk medication use; Metastatic 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, unspecified laterality; Abnormal thyroid function test; Hypokalemia; Autoimmune hepatitis Social History Tobacco Use Types Packs/Day Years [...] place to sleep or slept in a mcc (including now)? No 07/09/2021 Sex and Gender Information Value Date Recorded Sex Assigned at Male 05/23/2021 10:26 AM EST Gender Identity Not on file Sexual Orientation Not on file documented as of this encounter Last Filed Vital Signs Vital Sign Reading Time Taken Comments Blood Pressure 121/61 12/08/2023 1:21 PM EDT Pulse 60 12/08/2023 1:21 PM EDT Temperature 36.3 ??C (97.3 ??F) 12/08/2023 1:21 PM ED T Respiratory Rate 18 12/08/2023 1:21 PM EDT Oxygen Saturation 98% 12/08/2023 1:21 PM EDT Inhaled Oxygen Concentration - - Weight 101 kg (222 lb 10.6 oz) 12/08/2023 1:21 P M EDT Height 174.8 cm (5' 8.8) 12/08/2023 1:21 PM EDT Body Mass Index 33.07 12/08/2023 1:21 PM EDT documented in this encounter Progress Notes * Mitali Griffiths APRN - 12/08/2023 1:30 PM EDT Images from the original note were not included. Medical Oncology: Genitourinary [facility] [place] [address] [phone] HPI: Mr. Tenorio is a 68 y.o. 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 The patient experienced several episodes of hematuria in Apr 2021; this prompted CT scan in May2021 which revealed large left renal mass (16 x 14 x 14 cm) w/ some evidence of invasion of ipsilateral renal vein. No adenopathy, bone lesions, or other sites of disease. CT chest revealed solitary 3mm nodule in the right apex. No other suspicious findings. He was referred to Dr. Hou and underwent L radical nephrectomy on 06/23/21. His treatment history is outlined below. Treatment Hx: -left radical nephrectomy 06/2021 -08/07/21 started adjuvant pembrolizumab; d/c'd after 1 dose due to transaminitis -02/26/22 cabozantinib started for lung metastasis (treatment break 03/04- for COVID) -05/04/22 dose of cabozantinib reduced to 40 mg a day -09/01/22-09/07/22 cabozantinib was held due to hand-foot syndrome -09/19/22 cabozantinib dose reduced to 20 mg a day -12/2023 continues cabometyx 20mg per day, 5 days on and 2 days off INTERIM HPI: Raymundo Tenorio is in clinic today for follow-up on metastatic renal cell carcinoma and Cabometyx toxicity check. He continues to have some itching on his skin that improved with the use of hydroxyzine and steroid cream. He only has to use the hydroxyzine once every 10 days or so now. No signs of a rash on his skin. 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 He notices more leg cramping when he is active on the days he is on the cabometyx but other than this he feels well. No new complaints or pain. Denies fevers, chills, shortness of breath, cough, headaches, dizziness, dysphagia, nausea/vomiting, diarrhea/constipation, bleeding, neuropathy and swelling in extremities. All other review of systems is negative. Past Medical History: Diagnosis Date Claudication lower left leg , due to achilles surgery 2000 High blood pressure losartan 100mg Hyperlipidemia atorvastatin 20mg Renal cell carcinoma 07/16/2021 Past Surgical History: Procedure Laterality Date ACHILLES TENDON SURGERY CT GUIDED BIOPSY LUNG 02/04/2022 CT Guided Biopsy Lung 02/04/2022 Rich Baldwin MD [facility] RAD CT SCAN HERNIA REPAIR Left inguinal PRO COLONOSCOPY, DIAGNOSTIC N/A 10/02/2021 COLONOSCOPY, DIAGNOSTIC performed by Jordyn Merino MD at [facility] ENDOSCOPY PRO CYSTOURETHROSCOPY N/A 06/23/2021 CYSTO, CYSTOURETHROSCOPY, DIAGNOSTIC (WRVU 2.23) performed by Jordan Hou MD at [facility] MAIN OR PRO REMV KIDNEY, RADICAL Left 06/23/2021 @NEPHRECTOMY, RADICAL W\REG LYMPHADENECTOMY &\OR VENA CAVA THROMBECTOMY (WRVU 23.81) performed by Jordan Hou MD at [facility] MAIN OR Family History Problem Relation Age of Onset Lymphoma Mother dx 50s Breast Cancer Mother dx 50s Breast Cancer Sister 53 negative genetic testing (47 gene panel) Pancreatic Cancer Brother 61 Melanoma Brother 60 Leukemia Brother CLL Colorectal Cancer Maternal Aunt 70 Colorectal Cancer Maternal Uncle 67 Stomach Cancer Paternal Uncle Breast Cancer Paternal Cousin Pancreatic Cancer Paternal Cousin Social History: No interval changes since last visit to [place] One son and one daughter; one step daughter as well 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 [place] and [place] No smoking, never smoker No ETOH Social History Socioeconomic History Marital status: Spouse name: None Number of children: None Years of education: None Highest education level: None Occupational History None Tobacco Use Smoking status: Never Smokeless tobacco: Never Vaping Use Vaping status: Never Used Substance and Sexual Activity Alcohol use: Never Drug use: Never Sexual activity: None Other Topics Concern None Social History Narrative None Social Determinants of Health Financial Resource Strain: Low Risk (07/09/2021) Overall Financial Resource Strain (CARDIA) Difficulty of Paying Living Expenses: Not very hard Food Insecurity: No Food Insecurity (07/09/2021) Hunger Vital Sign Worried About Running Out of Food in the Last Year: Never true Ran Out of Food in the Last Year: Never true Transportation Needs: No Transportation Needs (07/09/2021) PRAPARE - Transportation Lack of Transportation (Medical): No Lack of Transportation (Non-Medical): No Physical Activity: Not on file Intimate Partner Violence: Not on file Housing Stability: Low Risk (07/09/2021) Housing Stability Vital Sign Unable to Pay for Housing in the Last Year: No Number of Places Lived in the Last Year: 1 Unstable Housing in the Last Year: No Allergies Allergen Reactions Grass Pollen-Orchardgrass, Standard Peanut Current Outpatient Medications: cabozantinib (Cabometyx) 20 mg tablet, Take daily 5 days/week, then hold for 2 days/week. Take on an empty stomach. Call clinic before starting medication. Indications: renal cell carcinoma, Disp: 20tablet, Rfl: 5 potassium chloride ER (Klor-Con M) 10 mEq ER micro-encapsulated crystal tablet, Take 1 tablet by mouth 2 times daily., Disp: 60 tablet, Rfl: 1 triamcinolone (Kenalog) 0.1 % Cream, Apply topically 2 times daily as needed. Apply to the most itchy/bothersome areas twice daily as needed., Disp: 80 g, Rfl: 3 camphor-menthoL (Sarna) Lotion, Apply topically as needed for Itching (Apply to the less itch/bothersome areas as needed)., Disp: 222 mL, Rfl: 3 hydrOXYzine (Atarax) 25 mg tablet, Take 1 tablet by mouth 3 times daily as needed for Itching., Disp: 30 tablet, Rfl: 12 levothyroxine (Synthroid) 75 mcg tablet, Take 1 tablet by mouth daily., Disp: 30 tablet, Rfl: 5 chlorthalidone (Hygroten) 25 mg Tablet, Take 25 mg by mouth daily., Disp: , Rfl: meclizine (Antivert) 25 mg Tablet, Take 25 mg by mouth 3 times daily as needed., Disp: , Rfl: Eliquis 5 mg Tablet, Take 5 mg by mouth 2 times daily., Disp: , Rfl: amLODIPine (Norvasc) 10 mg Tablet, TAKE ONE TABLET BY MOUTH EVERY DAY FOR BLOOD PRESSURE, Disp: , Rfl: diphenhydrAMINE (Benadryl) 25 mg Capsule, Take 25 mg by mouth every 6 hours as needed for Itching. For seasonal allergies, Disp: , Rfl: acetaminophen (Tylenol) 325 mg Tablet, Take 2-3 tablets by mouth every 6 hours as needed for Pain.,Disp: , Rfl: losartan (COZAAR) 100 mg Tablet, Take 100 mg by mouth daily., Disp: , Rfl: PHYSICAL EXAM: 12/08/2023 Oncology Vitals Weight (kg) 101 kg Weight (lb) 222 lb 10.6 oz Height 174.8 cm BSA (Calculated - sq m) 2.21 sq meters BMI (Calculated) 33.07 Temp 36.3 ??C (97.3 ??F) Temp src Temporal Heart Rate 60 Heart Rate Source SaO2 Resp 18 BP 121/61 BP Location Left arm Patient Position Sitting SpO2 98 % Pain Level General: not in acute distress. in good mood and spirits Eyes: Not icteric, not injected Oral: clear, no ulcers, no induration appreciated Neck: Supple. No lymphadenopathy. Lungs: Bilaterally clear to auscultation, No wheezing, No crackles Heart: Regular rate and rhythm. Abdomen: Soft, no tenderness, no mass, normal active bowel sounds. Extremities: No edema. Skin: No rash Neuro: No focal weakness LABS: Last 3 wbc, hgb, hct plt Recent Labs 12/08/23 1156 10/08/23 1050 08/24/23 1001 WBC 8.63 7.7 8.1 HGB 14.6 14.4 14.3 HCT 45.3 43.6 42.3 PLATELET 202 186 185 Last 3 Lytes Recent Labs 12/08/23 1156 10/08/23 1050 08/24/23 1001 NA 141 143 141 K 4.0 4.1 3.3* CL 104 106 104 CO2 29 25 27 BUN 22* 22* 24* CREATININE 1.52* 1.55* 1.67* Last 3 LFTs Recent Labs 12/08/23 1156 10/08/23 1050 08/24/23 1001 07/07/23 0901 06/02/23 1212 04/28/23 1347 AST 23 28 22 < > 26 40* ALT 29 31 27 < > 28 61* ALKPHOS 153* 154* 147* < > 124 127 BILITOT 0.3 0.3 0.4 < > 0.3 0.3 BILIDIR -- -- 0.1 -- 0.1 0.1 < > = values in this interval not displayed. PATHOLOGY: No new pathology to review 02/04/22 DIAGNOSIS A - Lung, left, core biopsy: - Metastatic clear cell renal cell carcinoma. 10/02/21 (colonoscopy/biopsy): DIAGNOSIS A - Transverse colon polyp, resection: - Tubular adenoma. 06/03/21: Tumor Focality: Unifocal Tumor Site: Middle; Lower pole Tumor Size: 17 Centimeters (cm) Histologic Type: Clear cell renal cell carcinoma Histologic Grade (WHO / ISUP): G4 Tumor Extent: Extends into perinephric tissue (beyond renal capsule); Extends into renal sinus; Extends into major vein (renal vein or its segmental branches, inferior vena cava); Extends into pelvicalyceal system Sarcomatoid Features: Not identified Rhabdoid Features: Present Tumor Necrosis: Present Percentage of Tumor Necrosis: 10% Lymphovascular Invasion: Present Margins Margin Status: All margins negative for invasive carcinoma Regional Lymph Nodes Regional Lymph Node Status: Tumor present in regional lymph node(s) Number of Lymph Nodes with Tumor: 1 Robert Site(s) with Tumor: Hilar Size of Largest Robert Metastatic Deposit: Less than 0.1 cm SYNOPTIC Size of Largest Lymph Node with Tumor: 0.7 cm Number of Lymph Nodes Examined: 3 Pathologic Stage Classification (pTNM, AJCC 8th Edition) Primary Tumor (pT): pT3a Regional Lymph Nodes (pN): pN1 IMAGING: No new imaging for review at today's visit. Assessment: Raymundo Tenorio is a 68 y[address] referred [address] Dr. 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 We reviewed his imaging which failed to reveal any obvious metastatic disease; his small lung nodule which will need to be followed on interval scans.The pathologic features of his tumor place him into a high risk category; we discussed that in this setting one can consider observation vs adjuvant therapy to help reduce the risk of recurrence. We reviewed the results of [id number] that demonstrated improved 2yr DFS with one year of pembrolizumab therapy (77.3% in pembro group vs. 68.1% in placebo). The survival data is immature at this time and follow-up is ongoing. Based on these data we believe it is reasonable to consider adjuvant pembrolizumab. We reviewed the mechanism of action and the associated side effects of the treatment including but not limited to infusion reactions, fatigue, fevers/chills, myalgias/arthralgias, rash, pruritis, thyroid dysfunction, autoimmune SEs impacting virtually any organ (thyroid, skin, colon, lungs, etc.) which can be severe or life- threatening. Grade 3 or higher adverse events of any cause occurred in 32.4% of the patients who received pembrolizumab and in 17.7% of those who received placebo. Sunitinib has also been studied in the adjuvant setting however, the da ta is mixed and treatment can be difficult to tolerate in some patients for this reason we would favor pembrolizumab. After discussion, the patient feels that the potential benefits of treatment outweigh the potentialrisks/side effects and he would like to move forward with adjuvant pembrolizumab. We reviewed the logistics and schedule of treatment. An informational handout on pembrolizumab was provided for reference. Plan is for 1 year of adjuvant therapy. We will obtain baseline imaging prior to initiating therapy as the presence of metastatic disease would impact our recommendations. 08/27/21: Raymundo returns for f/u and consideration of pembro C2. 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 Asymptomatic. Will hold tx and start steroids (prednisone 100 mg/day) and re-check CMP in 2 days. If LFTs improving, can proceed with taper. Pt prefers to get labs at [facility]. We'll send orders and I'll ask our scrap bunch maker to f/u on results. Advised pt to avoid Tylenol and hold statin. He doesn't drink ETOH. I'll update PCP. ------- 09/17/21 Screening cologuard was positive for blood and scheduled for colonoscopy 10/02/21. Scheduled for f/u and CT w/Dr. Hou on 10/16/21. LFTs improved on Prednisone but increased in the last couple of days since being off Prednisone. Will restart Prednisone 80mg/day and taper slowly over 5-6 weeks. Given that he had grade 3 toxicity with significant elevation of liver enzymes, we will discon tinue pembrolizumab. Rash flares: also likely related to pembro. Steroids helped. He's scheduled for routine f/u with Dr. Winter/[place] as well. 10/08/21 he is first day on tapered dose of Prednisone 20 mg a day Liver enzymes within normal range. Renal function : Creatinine 1.68 very slightly up from your baseline. He has follow-up appointment with Dr. Hou with restaging CT scan -------- 10/28/21: Raymundo has continued to have intermittent LFT elevation despite management with prednisone (currently on 40 mg/day). Per discussion with Dr. Bartholomew who consulted w/Dr. Merino/Hepatology, we recommend switching from prednisone to budesonide 9 mg/day. We will also put in a stat referral to GI for official consult. Raymundo agrees with the plan. We will re-check CMP in 1 week. He is also scheduled for f/u abdominal MRI on 11/[address] Hou. Depending on outcome of imaging (if concerning for metastatic disease), we may see Raymundo back to discuss additional systemic therapy options. If reassuring/KIMBER, he will continue f/u with Dr. Hou. We will tentatively schedule a f/u visit in 4 weeks but may cancel if imaging reassuring and Ameya plans to maintain f/u. Raymundo and Emily agree with this plan. --------- 11/26/21: Raymundo's recent MRI was KIMBER. We discussed the fact that his chest CT in October did show a pulmonary nodule. Recommend f/u in Jan w/chest CT. Per communication w/Dr. Hou, we will get theCT and f/u to review findings. If concerning for metastatic disease, we will discuss management plan with pt. If KIMBER, he will continue his f/u with Dr. Hou. Clinically, he is doing very well and has recovered from AEs of immunotherapy. 01/16/22 enlarging lung nodules on CT scan including 2 new very small lung nodules. Concerning for metastatic disease. We will schedule biopsy CT-guided of largest lung nodule, He had episodes of headaches and dizziness. We will do restaging brain MRI to rule out intracranialdisease. I briefly discussed treatment with TKI such as Cabometyx. We talked about risks and benefits. I will see him back in 1 week after biopsy to finalize the plan. 02/13/22 Abdominal and brain MRI are negative for metastatic disease. Lung biopsy confirmed metastasis, clear-cell renal cell carcinoma. We discussed options of surgery versus continuation observation versus systemic therapy with cabozantinib 60 mg a day. He has multiple lung nodules I do not think although that would be amenable for surgery but they offer him referral to thoracic surgeon. Patient declined. Randomized, open-label phase 2 multicenter study in 157 patients with intermediate and poor-risk previously untreated RCC. Patients received Cabometyx (n=79) 60 mg orally daily or sunitinib (N=78) 50mg orally daily (4 weeks on treatment followed by 2 weeks off) until disease progression or unacceptable toxicity. Estimated median progression-free survival (as assessed by blinded independent radiology review committee) for patients taking Cabometyx was 8.6 months (95% CI: 6.8, 14.0) compared with 5.3 months (95% CI: 3.0, 8.2) for patients taking sunitinib (Hazard ratio 0.48; 95% CI: 0.31, 0.74; p=0.0008). The most commonly reported (=25%) adverse reactions in the Cabometyx clinical program are diarrhea,fatigue, nausea, decreased appetite, hypertension, palmar- plantar erythrodysesthesia, weight decreased, vomiting, dysgeusia, and stomatitis. The most frequent grade 3-4 adverse reactions (=5%) in patients treated with Cabometyx on CABOSUN were hypertension, diarrhea, hyponatremia, hypophosphatemia, PPE, fatigue, ALT increased, decreased appetite, stomatitis, pain, hypotension, and syncope. The recommended dose of Cabometyx is 60 mg orally, once daily. All questions were answered to patient's satisfaction. He is interested to proceed with Cabometyx. Informed verbal consent was obtained. 03/18/22 Today, Raymundo feels overall well, tolerating cabozantinib and willing to continue current dose of cabozantinib. His mild GI symptoms and elevated BP are felt related to cabozantinib but his joint pains are likely primary from joint problem. 05/20/22 Patient had dose reduction of cabozantinib to 40mg which he started on May 04. This was donedue to development of nausea/vomiting and elevated LFTs on 04/29 (AST 103, ALT 266). He is feeling well overall and has resolution the GI side effects. 06/26/[address] scan. No changes in lung nodules in my eyes. He tolerates cabozantinib 40 mg a day reasonably well with some throat soreness, dry skin. We will continue current regimen. We will see him back in 4 weeks with blood work. 08/12/22 MRI is negative for signs of metastatic disease. Right kidney mass is hemorrhagic cyst. He is compliant with Cabometyx and tolerates it reasonably well. We will continue current regimen. 09/16/22 Raymundo developed hand-foot syndrome as well as tingling in his lower extremities interferingwith his daily activities. We will reduce his dose of cabozantinib to 20 mg a day. We will see him back in 4 weeks with blood work. 10/14/22 Raymundo feels much better on reduced dose of Cabometyx. Tingling in the feet is minimal. No pain. We will continue current regimen. We will see him back with CT scan blood work and visit 11/06/22 CT CAP scan demonstrates stable nodules. No signs of disease progression. Raymundo tolerates reduced dose of Cabometyx reasonably well. We will continue current regimen. We will see him back in 4-5 weeks with blood work. ------- 12/01/22: Raymundo continues to tolerate Cabometyx 20 mg/day with minimal side effects (mild dysgeusia and neuropathy), none interfering with QOL/ADLs. Agreed on plan to continue current regimen. Reviewedimportance of calling for any concerns bernardo loose stools/diarrhea, rashes, mouth sores, abdominal pain. We will plan to see him back in 4-5 weeks w/blood work. 01/13/23 Mr. Tenorio is doing well clinically. He tolerates Cabometyx with minimal side effects. Follows with ornamental metal fabricator apprentice Dr. Pringle, with plans to taper him off budesonide. We will continue current regiment with Cabometyx 20 mg a day. We will see him back in 4-5 weeks with blood work. We will plan for restaging CT scan in 8-9 weeks 02/10/2023 Raymundo is in clinic for follow-up appointment and cabozantinib toxicity check. Overall, he feels at his baseline. Tolerates Cabometyx well. Continues to follow with GI Dr. Pringle 03/17/2023 CT scan was personally reviewed, stable. Official report is pending. Raymundo tolerates Cabometyx reasonably well. Energy level is good. Liver enzymes slightly up. He has been off steroids for more than a month. We will defer steroid management to Dr. Pringle. 04/28/2023 CT scan demonstrated grossly stable radiographic picture. Very had diarrhea for 10 days,so Cabometyx was held. He resumed about 2 weeks ago. Tolerates it well. Will continue current regimen. Will plan to restage him with CT scan in about 2 months 06/02/23 Feeling very well today. Did have another bout of abdominal pain a/w restarting Cabometyx (day8) requiring a break for several days. He has restarted and is feeling well. He offers that he has been counseled in the past that he can take 1 week on 2 days off. He is D8 of restart and wonders if he should break now given he has plans for the weekend and wants to feel well, I think this is reasonable. He is due for a restaging CT scan next month at which time he can discuss further with Dr Hoyt. #Hypothyroid: TSH and free T4 are within normal range. Continue levothyroxine 75 mcg a day We will monitor #I right kidney mass: as noted previously: Hemorrhagic cyst on MRI. Not suspicious for solid tumor.Concern for possible solid mass arising at the site of prior cyst, versus blood products. We will schedule kidney ultrasound next visit 07/07/2023 CT scan was personally reviewed. Minimal increase in the size of lung nodules. I do not see any new metastatic lesion. Official report is pending. Clinically, Raymundo is doing well. Continue current regimen with Cabometyx 20 mg 5 days on 2 days off. I will see him back in 6 weeks with blood work. 08/24/23: Raymundo continues tolerating tx well. Will continue w/Cabometyx 20 mg 5 days on/2 days off. Plan for re-staging scan at next visit in 6 weeks. 10/08/2023 CT scan demonstrated marginal increase in size of multiple lung nodules. No new lung nodules or lymphadenopathy. He tolerates Cabometyx 20 mg 5 days a week and 2 days off well. Increase in size of lung nodules not significant and to constitute a progression. Will switch his visits to every2 months and scans every 4 months. He will call us interim with any questions or concerns. 12/08/23 Raymundo is doing well with no new medical complaints. He continues to have intermittent itching that responds to the hydroxyzine. We will continue on the current plan of cabometyx 20mg a day, onfor 5 days and off for 2 days. We will plan on restaging CT scan again in January (4 months from the last one). # Mild hypokalemia: continues on potassium chloride 10meq daily #L LE DVT: continue Eliquis per PCP. 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 #Genetic testing: [employer] did not reveal any mutations #Itching: thought to be related to cabometyx, rash resolved, uses hydroxyzine prn. No longer using steroid cream PLAN: Continue cabometyx 20mg daily, on for 5 days off for [address] c/a/p in 2 months, see back then with labs and provider visit as well Raymundo knows how to contact us with any additional questions or concerns. Mitali MARTIN, DATA COLLECTOR Medical Oncology Pager [phone] [facility] documented in this encounter Plan of Treatment Upcoming Encounters Date Type Department Care Team (Late st Contact Info) Description 02/16/2024 9:15 AM EDT Laboratory Appointment Lab at [facility] [place] [address] [place] [address] 02/16/2024 10:20 AM EDT Hospital [place] [address] Mitali Griffiths APRN [facility] [address] [place] [address] 02/16/2024 1:30 PM EDT Office Visit Hematology [place] [address] Albino Bartholomew MD [facility] [address] [place] [address] 04/17/2024 10:00 AM EST Office Visit Dermatology at [facility] [address] [place] [address] Oli Winter MD [address] [facility] [place] [address] Scheduled Orders Name Type Priority Associated Diagnoses Orde r Schedule CT Chest Abdomen Pelvis w Contrast (Generic) Imaging Routine Renal cell carcinoma of left kidney Expected: 02/07/2024 (Approximate), Expires: 08/08/2024 documented as of this encounter Goals Goal Patient Goal Type Associated Problems Recent Progress Patient-Stated? Author Patient's specific desired goal: Patient Facing Action Plan No Sharda Lee, [facility] Note: Remain 95% or more adherent to oral chemotherapy over the next year as measured by refill history documented as of this encounter Results * Magnesium (12/08/2023 11:56 AM EDT) Magnesium 0.90 0.69 - 1.07 mMol/L 12/08/2023 4:48 PM EDT [facility] Blood VENOUS BLOOD SPECIMEN / Unknown Venipuncture / Unknown 12/08/2023 11:56 AM EDT 12/08/2023 11:56 AM EDT Mitali Griffiths APRN CHEMISTRY ORDERAB LES [facility] [place] [address] documented in this encounter Visit Diagnoses Diagnosis Renal cell carcinoma of left kidney Medication management Encounter for long-term (current) use of other medications High risk medication use Encounter for long-term (current) use of other medications Metastatic 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, unspecified laterality Abnormal thyroid function test Nonspecific abnormal results of thyroid function study Hypokalemia Hypopotassemia Autoimmune hepatitis documented in this encounter Care Teams Seconds Grader Relationship Specialty Start Date End Date Juan Dempsey MD [address] [place] [address] PCP - General Emergency Medicine 08/20/21 documented as of this encounter
--- OUTSIDE RECORDS SUMMARY | 2024-02-03 16:50 | XMS_ITS | Encounter Summary ---
Author Organization [facility] [place] [address] Care Team Providers Care Production Control Planner Name Role Phone Juan Dempsey MD Primary Care Provider [phone] Encounter Details Date Type Department Care Team (Latest Contact Info) Description 12/13/2023 Specialty [place] [phone] Sharda Lee, [facility] Refill Coordination - 28 day recurrence (cabozantinib s-malate) for HemOnc, Clinical Assessment - 10 month recurrence (cabozantinib s-malate) for HemOnc Social History [...] place to sleep or slept in a fci (including now)? No 07/09/2021 Sex and Gender Information Value Date Recorded Sex Assigned at Male 05/23/2021 10:26 AM EST Gender Identity Not on file Sexual Orientation Not on file documented as of this encounter Progress Notes * Sharda Lee, [facility] - 12/13/2023 2:28 PM EDT Specialty Pharmacy Ongoing Clinical Assessment Note Comprehensive Medication Management (CMM): Specialty Consult, Opt Out Cristofer Tenorio is a 68 y.o. (1955) male, who is being followed by [facility] for service of Cabozantinib S-Malate. A review of the medication therapy was performed. The medicationwas Refilled as scheduled, and all medication related questions and concerns were addressed. The specialty pharmacy staff will follow up with the patient 5-7 days prior to next refill. Therapy Start Date: 02/26/22 Is patient willing to proceed with Clinical Assessment?: Yes Summary and Recommendations: The patient was feeling well today and not experiencing any side effects such as nausea, rash, or edema. Medication list reviewed with no major interactions identified. His CRCL is mildly decreased at 54ml/min and the TSH is WNL. He reports no bruising on Eliquis nor any new skin breakdown. The patient is aware of the importance of lab follow up and infection prevention precautions such as properhand washing, appropriate vaccination, and wearing a mask during an illness. The importance of adherence to treatment and strategies to improve compliance including use of pill boxes, calendar reminders, or routine alarms was discussed. The patient was instructed to notify the clinic of any upcoming procedures or new medications and OTC products. Resources are available to the patient from the cancer center from dieticians to sr. social media & mobile manager. Administration, allergies, dosage, safe storage awayfrom pets or children, handling and disposal was reviewed. The pharmacy's contact information and op erating hours on-call services were given to the patient verbally as well as in writing. The medication will be mailed out as soon as possible. Allergies and Drug intolerance: Allergies Allergen Reactions Grass Pollen-Orchardgrass, Standard Peanut Problem List: Patient Active Problem List Diagnosis Code Renal mass N28.89 Renal cell carcinoma C64.9 Medication management Z79.899 Medication List: Current Outpatient Medications Medication Sig Dispense Refill cabozantinib (Cabometyx) 20 mg tablet Take daily 5 days/week, then hold for 2 days/week. Take on anempty stomach. Call clinic before starting medication. Indications: renal cell carcinoma 20 tablet 5 potassium chloride ER (Klor-Con M) 10 mEq ER micro-encapsulated crystal tablet Take 1 tablet by mouth 2 times daily. 60 tablet 1 triamcinolone (Kenalog) 0.1 % Cream Apply topically 2 times daily as needed. Apply to the most itchy/bothersome areas twice daily as needed. 80 g 3 camphor-menthoL (Sarna) Lotion Apply topically as needed for Itching (Apply to the less itch/bothersome areas as needed). 222 mL 3 hydrOXYzine (Atarax) 25 mg tablet Take 1 tablet by mouth 3 times daily as needed for Itching. 30 tablet 12 levothyroxine (Synthroid) 75 mcg tablet Take 1 tablet by mouth daily. 30 tablet 5 chlorthalidone (Hygroten) 25 mg Tablet Take 25 mg by mouth daily. meclizine (Antivert) 25 mg Tablet Take 25 mg by mouth 3 times daily as needed. Eliquis 5 mg Tablet Take 5 mg by mouth 2 times daily. amLODIPine (Norvasc) 10 mg Tablet TAKE ONE TABLET BY MOUTH EVERY DAY FOR BLOOD PRESSURE diphenhydrAMINE (Benadryl) 25 mg Capsule Take 25 mg by mouth every 6 hours as needed for Itching. For seasonal allergies acetaminophen (Tylenol) 325 mg Tablet Take 2-3 tablets by mouth every 6 hours as needed for Pain. losartan (COZAAR) 100 mg Tablet Take 100 mg by mouth daily. No current facility-administered medications for this visit. Therapy Assessment and Recommendations: 12/15/2023 Clinical Assessment Review Appropriate Therapy Yes Additional equipment/supplies required No Care Plan reviewed and approved by pharmacist Yes Medication reconciliation discrepancies (compared to [facility] med list) No Pharmacist follow-up needed No Patient informed of specialty services: Yes Patient is aware a licensed pharmacist is available 24 hours a day, 7 days a week to discuss medication-related questions and concerns: Yes Patient verbalizes understanding of the common side effect profile of their medication(s).The patient is able to call 911 or seek urgent care if signs/symptoms of allergy or harmful adverse reactionsoccur: Yes Patient understands no change to current drug regimen were made at the appointment and that [facility] is providing recommendations (summary at top of note) for provider review and follow up: Yes Medication Therapy Recommendations No medication therapy recommendations to display Sharda Lee RPH 12/13/23 4:10 PM documented in this encounter Plan of Treatment Upcoming Encounters Date Type Department Care Team (Late st Contact Info) Description 02/16/2024 9:15 AM EDT Laboratory Appointment Lab at [facility] [place] [address] [place] [address] 02/16/2024 10:20 AM EDT Hospital [place] [phone] Mitali Griffiths APRN [facility] [address] [place] [address] 02/16/2024 1:30 PM EDT Office Visit Hematology [place] [phone] Albino Bartholomew MD [facility] [address] [place] [address] 04/17/2024 10:00 AM EST Office Visit Dermatology at [facility] [address] [place] [address] Oli Winter MD [address] [place] [address] documented as of this encounter Goals Goal Patient Goal Type Associated Problems Recent Progress Patient-Stated? Author Patient's specific desired goal: Patient Facing Action Plan No Sharda Lee, [facility] Note: Remain 95% or more adherent to oral chemotherapy over the next year as measured by refill history documented as of this encounter Visit Diagnoses Diagnosis Renal cell carcinoma of left kidney documented in this encounter Care Teams Production Control Planner Relationship Specialty Start Date End Date Juan Dempsey MD [address] [place] [address] PCP - General Emergency Medicine 08/20/21 documented as of this encounter
--- OUTSIDE RECORDS SUMMARY | 2024-02-03 16:50 | XMS_ITS | Encounter Summary ---
Author Organization [facility] Address [facility] [place] [address] Care Team Providers Care Log Cutter Name Role Phone Juan Dempsey MD Primary Care Provider [phone] Encounter Details Date Type Department Care Team (Late st Contact Info) Description 01/24/2024 11:30 AM EDT Office Visit Dermatology at [facility] [address] [place] [address] Oli Winter MD [address] [facility] [place] [address] Seborrheic keratosis; Multiple benign nevi; Lentigines; Rodríguez angioma; Folliculitis decalvans; Folliculitis; Family history of melanoma; Sebaceous hyperplasia Social History Tobacco Use Types Packs/Day Years Used Date Smoking Tobacco: Never Smokeless Tobacco: Never Alcohol Use Standard Drinks/Week Comments Never 0 (1 standard drink = 0.6 oz pur e alcohol) Overall Financial Resource Strain (CARDIA) Sergio ashley Date Recorded How hard is it for [...] place to sleep or slept in a half-way (including now)? No 07/09/2021 Sex and Gender Information Value Date Recorded Sex Assigned at Male 05/23/2021 10:26 AM EST Gender Identity Not on file Sexual Orientation Not on file documented as of this encounter Progress Notes * Oli Winter MD - 01/24/2024 11:30 AM EDT Images from the original note were not included. DEPARTMENT OF DERMATOLOGY Medical Dermatology Clinic Provider: Oli Winter MD FAAD at Dermatology at [facility] Patient's preferred name Cristofer Preferred contact method for results [x]Phone: with detailed results? [x]Yes []No []myD-H []Letter PAST MEDICAL HISTORY (if blank, patient denies history) Melanoma - Dysplastic nevi - SCC - BCC - [place] [] cryotherapy [] efudex [] PDT [] Other Relevant Medications [x] Immunosuppression [] Transplant [] Oncogenic medication [] Nicotinamide 500mg po bid Renal Cell Ca Cabometyx, nephrectom Other relevant history Plantar Wart, Left Scalp pruritus FAMILY HISTORY (if blank, patient denies history) Melanoma Brother NMSC - Other relevant history Pancreatic cancer - Brother Breast cancer - mother, sister SOCIAL HISTORY Occupation: retired Last seen 11/06/2022. History of Present Illness: Cristofer Tenorio is 68 y.o. and here for the following: Requests skin cancer screening. No suspicious lesions Medications: Reviewed in eD-H Allergies: Reviewed in eD-H Skin Examination Standby: Jonas Rocha RN Well developed, well-nourished in no apparent distress, alert and oriented to time, person, place and situation. Patient was asked to disrobe to the level of comfort. Examination of the skin of the head - including the scalp, face, ears, eyelids, nose, lips, tongue,oral/conjunctival mucosa - neck, chest, abdomen, back, axillae, buttocks, pubic area, upper and lower extremities, including the nail plates, significant for the following. Exam Findings/Assessment/Plan Folliculitis Decalvans / Folliculitis Multiple follicular pustules and boggy plaques with scarring alopecia on the occipital and crown scalp ; follicular pustules on the back and face Counseled: folliculitis decalvans, poor understanding of etiology, chronic and recurrent with risk for scarring hair loss, and limited efficacy of management options, including but not limited to doxycycline and clindamycin topical. Answered all questions. Patient elects doxycycline and clindamycin. Start Doxycycline 100mg po twice daily for 90 days. Counseled: risks of doxycycline including but not limited to nausea, vomiting, diarrhea, C. difficile diarrhea, rash, blistering (SJS/TEN) rash, esophagitis, blurry vision/vision loss, headaches, and photosensitivity as well as bacteria resistance. Recommend taking with a full stomach after a meal, with a glass of water and do not lay down for 30min after taking. If cost too expensive, patient to contact clinic for alternative. Handout from [employer] given to the patient. Start Rx clindamycin lotion: Apply topically to affected areas on the scalp twice daily as needed. Start OTC Benzoyl peroxide bar soap for neck down. Use twice daily as needed when showering. Sebaceous Gland Hyperplasia Yellow-hued, cauliflower-like umbilicated papules c/w sebaceous hyperplasia on the face Counseled: benign growths of sebaceous glands (hair follicle unit) that harbor a rare risk of sebaceous carcinoma, and treatment options, including but not limited to topical retin-a, light electrocautery, or laser therapy. Cosmetic treatment and therefore, likely [id number] expense. Handout given. Answered all questions. Patient declines treatment at this time. Return to clinic if changes in color, enlarges, or should bleeding or other symptoms occur. Patientagrees to plan. Lentigines Multiple, uniformly tinajero, slightly irregular, polygonal macules c/w lentigos on sun-exposed areas ofskin Benign. Counseled: lentigines, sun damage and spontaneous development, rare risk of lentigo maligna (melanoma arising in a lentigo), sun protection, no treatment necessary but discussed cosmetic options, including topical bleaching agents, as well as chemical peels and lasers. Answered all questions. Handout given. Rodríguez Angiomas Rodríguez red papules on the head, trunk, right axilla and extremities Counseled: rodríguez angiomas. Benign. No treatment necessary unless symptoms develop. Treatment considered cosmetic and [id number]. Treatment options, including but not limited to electrocautery, discussed. Handout given. Nevi Well-demarcated, round or oval, tinajero or brown macules and papules with benign morphology on the head, neck, trunk, right axilla, and extremities Morphology reassuring for benign nevi. Counseled: Nevi and risks for melanoma arising in a nevus. Recommend regular self-examinations. Answered all questions. Reviewed ABCDEs of melanoma, as below. Return to clinic as needed for changes in color, size, shape or thickness or should bleeding or other symptoms occur. Patient agrees to plan. Seborrheic Keratoses Scattered, stuck-on, well-demarcated, tinajero or brown, waxy or warty papules c/w SKs on the head, neck, trunk and extremities Benign. No treatment necessary. Counseled: SKs, benign, treatment options for symptomatic lesions. Answered all questions. Handout given. Family History of Skin Cancer [x] Melanoma - confers higher personal skin cancer risk [] NMSC [] Unknown Type Previously discussed genetic testing for BRCA gene mutation, patient elects to have gene testing Recommend regular physical and provider skin examinations. Referral : Genetics Patient Counseled [Skin Cancer] [] History of skin cancer [x] History of immunosuppression [x] History of extensive sun exposure [x] Family history of skin cancer Counseled: recommend sun protection, regular self skin exams, provider skin exams every 12 months, and the ABCDEs of melanoma/NMSC. Answered all questions. Handouts on how to do a self-exam, skin cancers and sun protection/recommended OTC sunscreens given to the patient. Joint decision for skin cancer screening in 12 months. Regular full body self examinations and return to clinic for new suspicious lesions or if changes/symptoms in existing lesions develop. Follow-up: 3 months for folliculitis follow up and 1 year for FSE. Return sooner as needed for suspicious lesion, new or worsening dermatitis. [x] Recall placed [] Forwarded to vocational rehabilitation specialist [x] Patient scheduled before exiting Scribe attestation: Jonas Sanchez, RN has performed the documentation for this encounter in the presence of and acting as a scribe for Oli Winter MD FAAMichael. I performed the above scribed service and agree with the accuracy of the documentation in this encounter. Reviewed and signed by: MD LEONEL Leal Dermatology [facility] * Oli Winter MD - 01/24/2024 11:30 AM EDT Reviewed with Oncologist, Dr Hoyt who stated: I don't see any interaction between cabometyx and doxycycline, so it should be fine. documented in this encounter Plan of Treatment Upcoming Encounters Date Type Department Care Team (Late st Contact Info) Description 02/16/2024 9:15 AM EDT Laboratory Appointment Lab at [facility] Hematology Oncology [address] [place] [address] 02/16/2024 10:20 AM EDT [place] [address] Mitali Griffiths APRN [facility] HEMATOLOGY [place] [address] 02/16/2024 1:30 PM EDT Office Visit [place]ology [place] [phone] Albino Bartholomew MD [facility] DR HEMATOLOGY [place] [address] 04/17/2024 10:00 AM EST Office Visit [facility] at [facility] [address] [place] [address] Oli Winter MD [address] [facility] [place] [place] [address] documented as of this encounter Goals Goal Patient Goal Type Associated Problems Recent Progress Patient-Stated? Author Patient's specific desired goal: Patient Facing Action Plan Sharda Lozano, [facility] Note: Remain 95% or more adherent to oral chemotherapy over the next year as measured by refill history documented as of this encounter Visit Diagnoses Diagnosis Seborrheic keratosis Other seborrheic keratosis Multiple benign nevi Benign neoplasm of skin, site unspecified Lentigines Other dyschromia Rodríguez angioma Nevus, non-neoplastic Folliculitis decalvans Other alopecia Folliculitis Other specified disease of hair and hair follicles Family history of melanoma Family history of other specified malignant neoplasm Sebaceous hyperplasia Other specified disease of sebaceous glands documented in this encounter Care Teams Log Cutter Relationship Specialty Start Date End Date Juan Dempsey MD [address] [place] [address] PCP - General Emergency Medicine 08/20/21 documented as of this encounter
--- OUTSIDE RECORDS SUMMARY | 2024-02-03 16:50 | XMS_ITS ---
Author Organization Unknown ALLERGIES AND ADVERSE REACTIONS No information ASSESSMENT No information CHIEF COMPLAINT No information MEDICATIONS No information OBJECTIVE DATA No information PHYSICAL EXAMINATION No information TREATMENT PLAN Planned Care Start Date Provider Encounter for Check-up [id number] PROBLEMS No information RESULTS No information REVIEW OF SYSTEMS No information SUBJECTIVE DATA No information VITAL SIGNS No information
--- OUTSIDE RECORDS SUMMARY | 2024-02-03 16:50 | XMS_ITS | Encounter Summary ---
Author Organization [facility] Address [facility] [place] [address] Care Team Providers Care Land Law Examiner Name Role Phone Juan Dempsey MD Primary Care Provider [phone] Reason for Visit * Reason Onset Date Comments Medication Refill 01/17/2024 Encounter Details Date Type Department Care Team (Late st Contact Info) Description 01/17/2024 Refill [place] [address] Kelin Carlos, FLARE WORKER [facility] DR [place] [address] Social History Tobacco Use Types Packs/Day Years [...] place to sleep or slept in a intermediate (including now)? No 07/09/2021 Sex and Gender Information Value Date Recorded Sex Assigned at Male 05/23/2021 10:26 AM EST Gender Identity Not on file Sexual Orientation Not on file documented as of this encounter Plan of Treatment Upcoming Encounters Date Type Department Care Team (Late st Contact Info) Description 02/16/2024 9:15 AM EDT Laboratory Appointment Lab at [facility] Hematology Oncology [address] [place] [address] 02/16/2024 10:20 AM EDT Hospital [place] [phone] Mitali Griffiths APRN [facility] DR [place] [address] 02/16/2024 1:30 PM EDT Office Visit Hematology [place] [phone] Albino Bartholomew MD [facility] DR [place] [address] 04/17/2024 10:00 AM EST Office Visit Dermatology at [facility] [address] [place] [address] Oli Winter MD [address] [facility] [place] [address] documented as of this encounter Goals Goal Patient Goal Type Associated Problems Recent Progress Patient-Stated? Author Patient's specific desired goal: Patient Facing Action Plan Sharda Lozano, [facility] Note: Remain 95% or more adherent to oral chemotherapy over the next year as measured by refill history documented as of this encounter Visit Diagnoses Not on filedocumented in this encounter Care Teams Land Law Examiner Relationship Specialty Start Date End Date Juan Dempsey MD [address] [place] [address] PCP - General Emergency Medicine 08/20/21 documented as of this encounter
--- OUTSIDE RECORDS SUMMARY | 2024-02-03 16:50 | XMS_ITS | Encounter Summary ---
Author Organization [facility] Address [facility] [place] [address] Care Team Providers Care Electric Engine Mechanic Name Role Phone Juan Dempsey MD Primary Care Provider [phone] Encounter Details Date Type Department Care Team (Late st Contact Info) Description 01/31/2024 Telephone Dermatology at [facility] [address] [place] [phone] Oli Winter MD [address] [facility] [address] Social History Tobacco Use Types Packs/Day Years [...] place to sleep or slept in a [facility] (including now)? No 07/09/2021 Sex and Gender Information Value Date Recorded Sex Assigned at Male 05/23/2021 10:26 AM EST Gender Identity Not on file Sexual Orientation Not on file documented as of this encounter Miscellaneous Notes * Telephone Encounter - Arlet Casillas - 01/31/2024 9:26 AM EDT Cristofer called today seeking advice as he is experiencing stomach pain as a result of using doxycycline. He would like a call back to advise. documented in this encounter Plan of Treatment Upcoming Encounters Date Type Department Care Team (Late st Contact Info) Description 02/16/2024 9:15 AM EDT Laboratory Appointment Lab at [facility] Hematology Oncology [address] [place], [place] [id number] 02/16/2024 10:20 AM EDT Hospital [place] [phone] Mitali Griffiths APRN [facility] [address] [place] [address] 02/16/2024 1:30 PM EDT Office Visit Hematology [place] [phone] Albino Bartholomew MD [facility] [address] [place] [address] 04/17/2024 10:00 AM EST Office Visit Dermatology at [address] [place] [phone] Oli Winter MD [address] [facility] [place] [address] documented as of this encounter Goals Goal Patient Goal Type Associated Problems Recent Progress Patient-Stated? Author Patient's specific desired goal: Patient Facing Action Plan No Sharda Lee, [facility] Note: Remain 95% or more adherent to oral chemotherapy over the next year as measured by refill history documented as of this encounter Visit Diagnoses Not on filedocumented in this encounter Care Teams Electric Engine Mechanic Relationship Specialty Start Date End Date Juan Dempsey MD [address] [place] [address] PCP - General Emergency Medicine 08/20/21 documented as of this encounter
--- OUTSIDE RECORDS SUMMARY | 2024-02-03 16:50 | XMS_ITS | Encounter Summary ---
Author Organization [facility] Address [facility] [place] [address] Care Team Providers Care Director Stage Name Role Phone Juan Dempsey MD Primary Care Provider [phone] Encounter Details Date Type Department Care Team (Latest Contact Info) Description 01/24/2024 Travel Social History Tobacco Use Types Packs/Day [...] place to sleep or slept in a [place] [facility] [place] (including now)? No 07/09/2021 Sex and Gender Information Value Date Recorded Sex Assigned at Male 05/23/2021 10:26 AM EST Gender Identity Not on file Sexual Orientation Not on file documented as of this encounter Plan of Treatment Upcoming Encounters Date Type Department Care Team (Late st Contact Info) Description 02/16/2024 9:15 AM EDT Laboratory Appointment Lab at [facility] Hematology Oncology [address] [place] [address] 02/16/2024 10:20 AM EDT Hospital Encounter [place] [phone] Mitali Griffiths APRN [facility] [address] HEMATOLOGY [place] [address] 02/16/2024 1:30 PM EDT Office Visit Hematology [place] [address] Albino Bartholomew MD [facility] DR HEMATOLOGY [place] [address] 04/17/2024 10:00 AM EST Office Visit Dermatology at [facility] [address] [place] [address] Oli Winter MD [address] [facility] [address] documented as of this encounter Goals Goal Patient Goal Type Associated Problems Recent Progress Patient-Stated? Author Patient's specific desired goal: Patient Facing Action Plan Sharda Lozano, [facility] Note: Remain 95% or more adherent to oral chemotherapy over the next year as measured by refill history documented as of this encounter Visit Diagnoses Not on filedocumented in this encounter Care Teams Director Stage Relationship Specialty Start Date End Date Juan Dempsey MD [address] [place] [address] PCP - General Emergency Medicine 08/20/21 documented as of this encounter
--- OUTSIDE RECORDS SUMMARY | 2024-02-03 16:50 | XMS_ITS | Clinical Summary ---
Author Organization [facility] Address [facility] [place] [address] Care Team Providers Care City Recorder Name Role Phone Juan Dempsey MD Primary Care Provider [phone] Allergies Active Allergy Reactions Criticality Noted Date Comments Grass Pollen-Orchardgrass, Standard 11/26/2021 Peanut Medications Medication Sig Dispensed Refills Start Date End Date Status losartan (COZAAR) 100 mg Tablet Take 100 mg by mouth daily. 04/11/2019 Active acetaminophen (Tylenol) 325 mg Tablet Take 2-3 tablets by mouth every 6 hours as needed for Pain. 06/27/2021 Active diphenhydrAMINE (Benadryl) 25 mg Capsule Take 25 mg by mouth every 6 hours as needed for Itching. For seasonal allergies Active amLODIPine (Norvasc) 10 mg Tablet TAKE ONE TABLET BY MOUTH EVERY DAY FOR BLOOD PRESSURE 09/02/2021 Active Eliquis 5 mg Tablet Take 5 mg by mouth 2 times daily. 10/21/2021 Active meclizine (Antivert) 25 mg Tablet Take 25 mg by mouth 3 times daily as needed. Active chlorthalidone (Hygroten) 25 mg Tablet Take 25 mg by mouth daily. Active levothyroxine (Synthroid) 75 mcg tablet Take 1 tablet by mouth daily. 30 tablet 5 08/26/2023 Active triamcinolone (Kenalog) 0.1 % Cream Apply topically 2 times daily as needed. Apply to the most itchy/bothersome areas twice daily as needed. 80 g 3 09/30/2023 Active camphor-menthoL (Sarna) Lotion Apply topically as needed for Itching (Apply to the less itch/bothersome areas as needed). 222 mL 3 09/30/2023 Active hydrOXYzine (Atarax) 25 mg tablet Take 1 tablet by mouth 3 times daily as needed for Itching. 30 tablet 12 09/30/2023 Active cabozantinib (Cabometyx) 20 mg tabletIndications:r enal cell carcinoma Take daily 5 days/week, then hold for 2 days/week. Take on an empty stomach. Call clinic before starting medication. Indications: renal cell carcinoma 20 tablet 5 11/15/2023 Active potassium chloride ER (Klor-Con M) 10 mEq ER micro-encapsulated crystal tabletIndications:H ypokalemia Take 1 tablet by mouth 2 times daily. 60 tablet 1 01/21/2024 Active doxycycline (Vibramycin) 100 mg capsuleIndications: Folliculitis decalvans Take 1 capsule by mouth 2 times daily. 90 capsule 3 01/24/2024 Active clindamycin (CLEOCIN T) 1 % LotionIndications:F olliculitis decalvans Apply thin layer to affected areas on the scalp and neck twice daily 60 mL 11 01/24/2024 Active Active Problems Problem Noted Date Diagnosed Date Renal cell carcinoma 07/16/2021 Medication management 07/16/2021 Renal mass 05/27/2021 Encounters Date Type Department Care Team Description 02/01/2024 Telephone Dermatology at [facility] [address] [place] [address] Oli Winter MD 01/31/2024 Telephone Dermatology at [facility] [address] [place] [phone] Suzy Suarez LPN 01/31/2024 Telephone Dermatology at [facility] [address] [place] [phone] lOi Winter MD 01/27/2024 Telephone Dermatology at [facility] [address] [place] [phone] Oli Winter MD 01/24/2024 11:30 AM EDT Office Visit Dermatology at [facility] [address] [place] [address] Oli Winter MD Seborrheic keratosis; Multiple benign nevi; Lentigines; Rodríguez angioma; Folliculitis decalvans; Folliculitis; Family history of melanoma; Sebaceous hyperplasia 01/24/2024 Travel 01/18/2024 Refill [place] [phone] Kelin Carlos APRN Hypokalemia 01/17/2024 Specialty [place] [phone] Jonas Vásquez, [facility] Refill Coordination - 28 day recurrence (cabozantinib s-malate) for HemOnc 01/17/2024 [place] [phone] Kelin Carlos APRN 01/17/2024 Travel 12/13/2023 Specialty [place] [phone] Sharda Lee [facility] Refill Coordination - 28 day recurrence (cabozantinib s-malate) for HemOnc, Clinical Assessment - 10 month recurrence (cabozantinib s-malate) for HemOnc 12/10/2023 [place]ty [place] [phone] Sharda Lee [facility] Refill Coordination - 28 day recurrence (cabozantinib s-malate) for HemOnc 12/08/2023 1:30 PM EDT Office Visit [place] [phone] Mitali Griffiths APRN Renal cell carcinoma of left kidney; Medication management; High risk medication use; Metastatic 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, unspecified laterality; Abnormal thyroid function test; Hypokalemia; Autoimmune hepatitis 12/08/2023 11:49 AM EDT - 12/08/2023 11:59 PM EDT Hospital Encounter [place] [address] Metastatic 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, unspecified laterality; High risk medication use; Abnormal thyroid function test; Renal cell carcinoma of left kidney Discharge Disposition: Home 12/08/2023 Travel 12/01/2023 Travel 11/22/2023 [place]ty [place] [address] Marci Angel, [employer] Refill Coordination - 28 day recurrence (cabozantinib s-malate) for HemOnc 11/15/2023 [place] [address] Kelin Carlos APRN from Last 3 Months Immunizations Name Administration Dates Next Due Covid-19 Monovalent (Moderna Spikevax) 12yrs+ () 02/24/2021,07/31/2020,07/03/2020 Zoster (ShingRix), Recombinant 03/16/2019 Family History Medical History Relation Comments Pancreatic Cancer Brother 1 Leukemia Brother 2 CLL Melanoma Brother 2 Colorectal Cancer Maternal Aunt Colorectal Cancer Maternal Uncle Breast Cancer Mother dx 50s Lymphoma Mother dx 50s Breast Cancer Paternal Cousin Pancreatic Cancer Paternal Cousin Stomach Cancer Paternal Uncle Breast Cancer Sister negative genetic testing (47 gene panel) Relation Status Comments Brother 1 Brother 2 Father Maternal Aunt Maternal Uncle Mother Paternal Cousin Paternal Uncle Sister Alive Social History Tobacco Use Types Packs/Day Years Used Date Smoking Tobacco: Never Smokeless Tobacco: Never Tobacco Cessation:Counseling Given: Not Answered Alcohol Use Standard Drinks/Week Comments Never 0 [...] place to sleep or slept in a retirement (including now)? No 07/09/2021 Sex and Gender Information Value Date Recorded Sex Assigned at Male 05/23/2021 10:26 AM EST Gender Identity Not on file Sexual Orientation Not on file Last Filed Vital Signs Vital Sign Reading Time Taken Comments Blood Pressure 121/61 12/08/2023 1:21 PM EDT Pulse 60 12/08/2023 1:21 PM EDT Temperature 36.3 ??C (97.3 ??F) 12/08/2023 1:21 PM ED T Respiratory Rate 18 12/08/2023 1:21 PM EDT Oxygen Saturation 98% 12/08/2023 1:21 PM EDT Inhaled Oxygen Concentration - - Weight 100.7 kg (222 lb) 12/13/2023 12:58 PM EDT Height 174.8 cm (5' 8.8) 12/08/2023 1:21 PM EDT Body Mass Index 32.97 12/08/2023 1:21 PM EDT Plan of Treatment Upcoming Encounters Date Type Department Care Team (Late st Contact Info) Description 02/16/2024 9:15 AM EDT Laboratory Appointment Lab at [facility] Hematology Oncology [address] [place] [id number] 02/16/2024 10:20 AM EDT Hospital [place] [phone] Mitali Griffiths APRN [facility] [address] [place] [address] 02/16/2024 1:30 PM EDT Office Visit [place] [phone] Albino Bartholomew MD [facility] [address] [place] [address] 04/17/2024 10:00 AM EST Office Visit Dermatology at [facility] [address] [place] [phone] Oli Winter MD [address] [facility] [place] [address] Health Maintenance Due Date Last Done Comments CT Colonography 1955 FIT DNA 1955 FIT 1955 Sigmoidoscopy 1955 Lipid Screening 1973 Tetanus/Diphtheria/Pertussis Vaccines (1 - Tdap) 1974 Zoster vaccine (2 of 2) 05/11/2019 03/16/2019 Pneumoccocal Vaccine: 65+ (1 of 1 - PCV) 02/18/2020 Covid-19 Vaccine (4 - 2022-2 4 season) 2024 02/24/2021, 07/31/2020, 07/03/2020 Influenza (Flu) vaccine (1 o f 1 - Influenza standard series) 01/02/2024 Diabetes Screening (HgbA1C o r Glucose) 12/07/2026 12/08/2023, 10/08/2023, 08/24/2023, Additional history exists Colonoscopy 10/02/2028 10/02/2021, 10/02/2021 Colorectal Cancer Screening 10/02/2028 Sigmoidoscopy (10 year) with FIT yearly 10/03/2031 10/02/2021, 10/02/2021 Hepatitis C Screening Completed 08/12/2021 (Report in eDH) Goals Goal Patient Goal Type Associated Problems Recent Progress Patient-Stated? Author Patient's specific desired goal: Patient Facing Action Plan No Sharda Lee, [facility] Note: Remain 95% or more adherent to oral chemotherapy over the next year as measured by refill history Procedures Procedure Name Priority Date/Time Associated Diagnosis Comments MAGNESIUM Add-On 12/08/2023 11:56 AM EDT Renal cell carcinoma of left kidney T4, FREE Routine 12/08/2023 11:56 AM EDT Metastatic 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, unspecified laterality High risk medication use Abnormal thyroid function test TSH Routine 12/08/2023 11:56 AM EDT Metastatic 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, unspecified laterality High risk medication use Abnormal thyroid function test COMPREHENSIVE METABOLIC PANEL Routine 12/08/2023 11:56 AM EDT Metastatic 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, unspecified laterality CBC (WITH DIFF) Routine 12/08/2023 11:56 AM EDT Metastatic 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, unspecified laterality COLONOSCOPY Routine 10/02/2021 3:02 PM EDT from Last 3 Months or Most Recently Relevant to Health Maintenance Results * (ABNORMAL) CBC (with Diff) (12/08/2023 11:56 AM EDT) White Blood Cell 8.63 4.00 - 9.50 x10(3)/mc L 12/08/2023 12:11 PM EDT [facility] Red Blood Cell 4.97 4.58 - 5.54 x10(6)/mc L 12/08/2023 12:11 PM EDT [facility] Hemoglobin 14.6 13.7 - 16.5 g/dL 12/08/2023 12:11 PM EDT [facility] Hematocrit 45.3 40.5 - 48.5 % 12/08/2023 12:11 PM EDT [facility] Mean Cell Volume 91.1 82.9 - 93.1 fL 12/08/2023 12:11 PM [facility] Mean Cell Hemoglobin 29.4 27.5 - 32.1 pg 12/08/2023 12:11 PM [facility] Mean Cell Hemoglobin Concentration 32.2 32.0 - 35.7 g/dL 12/08/2023 12:11 PM [facility] Platelet 202 145 - 357 x10(3)/mc L 12/08/2023 12:11 PM [facility] Mean Platelet Volume 9.7 7.6 - 12.9 fL 12/08/2023 12:11 PM [facility] RDW Standard Deviation 48.9(H) 36.0 - 45.0 fL 12/08/2023 12:11 PM [facility] RDW coefficient of variation 14.7(H) 11.4 - 13.8 % 12/08/2023 12:11 PM [facility] NRBC% auto 0.0 % 12/08/2023 12:11 PM [facility] NRBC Absolute 0.00 0.00 - 0.00 x10(3)/mc L 12/08/2023 12:11 PM [facility] Neutrophil % 69.0 % 12/08/2023 12:11 PM [facility] Neutrophil Absolute (ANC) - Automated 5.96 1.70 - 6.10 x10(3)/mc L 12/08/2023 12:11 PM [facility] Lymph % 20.5 % 12/08/2023 12:11 PM [facility] Lymph Absolute 1.77 0.90 - 3.20 x10(3)/mc L 12/08/2023 12:11 PM [facility] Monocyte % 5.6 % 12/08/2023 12:11 PM [facility] Monocyte Absolute 0.48 0.30 - 0.90 x10(3)/mc L 12/08/2023 12:11 PM EDT [facility] Eos % 3.2 % 12/08/2023 12:11 PM EDT [facility] Eos Absolute 0.28 0.00 - 0.40 x10(3)/mc L 12/08/2023 12:11 PM EDT [facility] Basophil % 1.2 % 12/08/2023 12:11 PM EDT [facility] Baso Absolute 0.10 0.00 - 0.10 x10(3)/mc L 12/08/2023 12:11 PM EDT [facility] Immature Gran % 0.5 % 12:11 PM EDT [facility] Immature Gran Absolute 0.04 0.00 - 0.04 x10(3)/mc L 12/08/2023 12:11 PM EDT [facility] Blood VENOUS BLOOD SPECIMEN / Unknown Venipuncture / Unknown 12/08/2023 11:56 AM EDT 12/08/2023 11:56 AM EDT Albino Bartholomew MD HEMATOLOGY ORDERABLE S [facility] [place] [address] * TSH (12/08/2023 11:56 AM EDT) Thyroid Stimulating Hormone 3.07 0.27 - 4.20 mcIU/mL 12/08/2023 12:43 PM EDT [facility] Blood VENOUS BLOOD SPECIMEN / Unknown Venipuncture / Unknown 12/08/2023 11:56 AM EDT 12/08/2023 11:56 AM EDT Albino Bartholomew MD CHEMISTRY ORDERABLES [facility] [place] [address] * T4, free (12/08/2023 11:56 AM EDT) [facility] Free T4 1.58 0.93 - 1.70 ng/dL 12/08/2023 12:43 PM EDT [facility] Blood VENOUS BLOOD SPECIMEN / Unknown Venipuncture / Unknown 12/08/2023 11:56 AM EDT 12/08/2023 11:56 AM EDT Albino Bartholomew MD CHEMISTRY ORDERABLES Performing Organization Address City/[facility]/ZIP Co de Phone Number [facility] [place] [address] * Magnesium (12/08/2023 11:56 AM EDT) [facility] Magnesium 0.90 0.69 - 1.07 mMol/L 12/08/2023 4:48 PM EDT [facility] Blood VENOUS BLOOD SPECIMEN / Unknown Venipuncture / Unknown 12/08/2023 11:56 AM EDT 12/08/2023 11:56 AM EDT Mitali Griffiths APRN CHEMISTRY ORDERAB LES Performing Organization Address City/[facility]/ZIP Co de Phone Number [facility] [place] [address] * (ABNORMAL) Comprehensive metabolic panel (12/08/2023 11:56 AM EDT) [facility] Glucose 80 65 - 199 mg/dL 12/08/2023 12:43 PM EDT [facility] Comment:Glucose Concentratio n >=200 mg/dL plus symptoms is consistent with Diabetes Mellitus. Blood Urea Nitrogen 22(H) 10 - 20 mg/dL 12/08/2023 12:43 PM EDT [facility] Creatinine 1.52(H) 0.80 - 1.50 mg/dL 12/08/2023 12:43 PM EDT [facility] Sodium 141 135 - 145 mMol/L 12/08/2023 12:43 PM EDT [facility] Potassium 4.0 3.5 - 5.0 mMol/L 12/08/2023 12:43 PM [facility] Chloride 104 98 - 107 mMol/L 12/08/2023 12:43 PM [facility] Carbon Dioxide 29 22 - 31 mMol/L 12/08/2023 12:43 PM [facility] Anion Gap 8 5 - 15 mMol/L 12/08/2023 12:43 PM [facility] Calcium 9.5 8.5 - 10.5 mg/dL 12/08/2023 12:43 PM [facility] Protein, Total 6.8 6.1 - 8.0 g/dL 12/08/2023 12:43 PM [facility] Albumin 4.0 3.2 - 5.2 g/dL 12/08/2023 12:43 PM [facility] Aspartate Aminotransferase 23 <=39 unit/L 12/08/2023 12:43 PM [facility] Alanine Aminotransferase 29 0 - 55 unit/L 12/08/2023 12:43 PM [facility] Alkaline Phosphatase 153(H) 40 - 130 unit/L 12/08/2023 12:43 PM [facility] Bilirubin, Total 0.3 <=1.3 mg/dL 12/08/2023 12:43 PM [facility] Est Glomerular Filtration Rate - Male 50 mL/min/1. 73 m?? 12/08/2023 12:43 PM [facility] Comment: This patient's estimated [...] Foundation Fasting Status No 12/08/2023 12:43 PM EDT [facility] Blood VENOUS BLOOD SPECIMEN / Unknown Venipuncture / Unknown 12/08/2023 11:56 AM EDT 12/08/2023 11:56 AM EDT Albino Bartholomew MD CHEMISTRY ORDERABLES [facility] [place] [address] * COLONOSCOPY (10/02/2021 3:02 PM EDT) COLONOSCOPY [facility] Endoscopy Procedure Date: 10/02/2021 3:02 PM ? Patient Name: Raymundo Mariscal ? Date of : 1955 ? Age: 66 ? Order #: [id number] ? Instrument Name: -[id number] ? Procedure: ? Colonoscopy Indications: ? Positive Cologuard test Providers: ? Jordyn Merino MD, Jennyfer Armando, ? Landon ZEPEDA Referring : ?Juan Dempsey MD Medicines: ? Midazolam 4 mg IV, Fentanyl 100 ? micrograms IV Complications: ? No immediate complications. Procedure: ? Pre-Anesthesia Assessment: ? - Prior to the procedure, a History ? and Physical was performed, and ? patient medications, allergies and ? sensitivities were reviewed. The ? patient's tolerance of previous ? anesthesia was reviewed. ? - The risks and benefits of the ? procedure and the sedation options ? and risks were discussed with the ? patient. All questions were ? answered and informed consent was ? obtained. ? The procedure, indications, ? benefits, risks and alternatives ? were explained to the patient. ? Specifically discussed were ? potential complications including, ? but not limited to, bleeding, ? perforation, infection, missing a ? cancer, and adverse medication ? reactions. The patient was placed ? in the left lateral decubitus ? position, and a digital rectal exam ? was performed. The Colonoscope was ? inserted in the anus and under ? direct visualization, advanced to ? the cecum, identified by ? appendiceal orifice and ileocecal ? valve. Careful inspection was made ? as the colonoscope was withdrawn. ? The colonoscopy was performed ? without difficulty. The patient ? tolerated the procedure well. The ? quality of the bowel preparation ? was excellent. ? Findings: ? Multiple small and large-mouthed diverticula were ? found in the sigmoid colon and descending colon. ? A 4 mm polyp was found in the transverse colon. The ? polyp was sessile. The polyp was removed with a cold ? snare. Resection and retrieval were complete. ? Moderate Sedation: ? I was present during the intraservice time as ? documented by the sedation RN. Impression: ?- Diverticulosis in the sigmoid ? colon and in the descending colon. ? - One 4 mm polyp in the transverse ? colon, removed with a cold snare. ? Resected and retrieved. Recommendation: ?- Await pathology results. ? - Repeat colonoscopy in 7 years for ? surveillance. ? Attending Participation: ? I personally performed the entire procedure. ? I was present during the intraservice time as ? documented by the sedation RN. ? Jordyn Merino MD 10/02/2021 3:50:39 PM This report has been signed electronically. Number of Addenda: 0 Note Initiated On: 10/02/2021 3:02 PM PROVATION 10/02/2021 3:02 PM EDT Juan Dempsey MD GENERAL SURGICAL ORD ERABLES PROVATION from Last 3 Months or Most Recently Relevant to Health Maintenance Advance Directives Documents on File Type Date Recorded Patient Media Consultant Outside Sales Expl anation Advance Directives and Livin g Will 08/08/2021 2:48 PM [place] AD 11/23/2018 * Attempt Cardiopulmonary Resuscitation - Inpatient (Latest Code Status on File) Date Activated Date Inactivated Comments 02/04/2022 9:44 AM 02/05/2022 4:33 AM Question Answer Comments Code Status decision made by: Patient * Attempt Cardiopulmonary Resuscitation - Inpatient Date Activated Date Inactivated Comments 06/23/2021 12:22 PM 06/27/2021 2:11 PM Question Answer Comments Code Status decision made by: Patient * Attempt Cardiopulmonary Resuscitation - Inpatient Date Activated Date Inactivated Comments 06/23/2021 6:18 AM 06/23/2021 12:22 PM Question Answer Comments Code Status decision made by: Patient Care Teams City Recorder Relationship Specialty Start Date End Date Juan Dempsey MD [address] [place] [address] PCP - General Emergency Medicine 08/20/21
--- OUTSIDE RECORDS SUMMARY | 2024-02-03 16:50 | XMS_ITS | Encounter Summary ---
Author Organization [facility] Address [facility] [place] [address] Care Team Providers Care Trim Technician Name Role Phone Juan Dempsey MD Primary Care Provider Encounter Details Date Type Department Care Team (Latest Contact Info) Description 12/10/2023 Specialty [place] [phone] Sharda Lee, [facility] Refill Coordination - 28 day recurrence (cabozantinib [...] of this encounter Progress Notes * Sharda Lee [facility] - 12/10/2023 4:06 PM EDT Clinical Management Plan: Refill Specialty Pharmacy Consultation; Sharda Lee [facility] Comprehensive Medication Management (CMM) Mr. Cristofer Tenorio [...] Standard Peanut Medication Reconciliation Discrepancies (compared to [facility] med list) No Review Flowsheet 12/10/2023 5:55 PM Assessment What is the name of the specialty medication you are refilling? cabometyx Are you taking any new medications? No Any new medical conditions? No Any new allergies? No Any new side effects that are bothersome? No Any missed doses since your last fill? 0 How many doses do you have remaining on hand? 9 Would you like a pharmacist to reach out to you to answer any questions? No What date will you need this fill by? 12/22/2023 Adherence: Any missed doses? No Patient understands no changes to current drug regimen were made. Sharda Lee RPH 12/14/23 9:31 AM documented in this encounter Plan of Treatment Upcoming Encounters Date Type Department Care Team (Late st Contact Info) Description 02/16/2024 9:15 AM EDT Laboratory Appointment Lab at [facility] [place]ematology Oncology [address] [place] [address] 02/16/2024 10:20 AM EDT Hospital Encounter CT Scan at [place] [phone] Mitali Griffiths APRN [facility] DR HEMATOLOGY [place] [address] 02/16/2024 1:30 PM EDT Office Visit Hematology [place] [phone] Albino Bartholomew MD [facility] DR [place]AT[place] [address] 04/17/2024 10:00 AM EST Office Visit Dermatology at [facility] [address] [place] [address] Oli Winter MD [address] [facility] [place] [address] documented as of this encounter Goals Goal Patient Goal Type Associated Problems Recent Progress Patient-Stated? Author Patient's specific desired goal: Patient Facing Action Plan No Sharda Lee RPH Note: Remain 95% or more adherent to oral chemotherapy over the next year as measured by refill history documented as of this encounter Visit Diagnoses Not on filedocumented in this encounter Care Teams Trim Technician Relationship Specialty Start Date End Date Juan Dempsey MD [address] [place] [address] PCP - General Emergency Medicine 08/20/21 documented as of this encounter
--- OUTSIDE RECORDS SUMMARY | 2024-02-03 16:50 | XMS_ITS | Encounter Summary ---
Author Organization [facility] Address [facility] [place] [address] Care Team Providers Care Behavioral Medical Director Name Role Phone Juan Dempsey MD Primary Care Provider [phone] Encounter Details Date Type Department Care Team (Late st Contact Info) Description 01/27/2024 Telephone Dermatology at [facility] [address] [place] [phone] Oli Winter MD [address] [facility] [address] Social History Tobacco Use Types Packs/Day Years [...] place to sleep or slept in a skilled nursing (including now)? No 07/09/2021 Sex and Gender Information Value Date Recorded Sex Assigned at Male 05/23/2021 10:26 AM EST Gender Identity Not on file Sexual Orientation Not on file documented as of this encounter Miscellaneous Notes * Telephone Encounter - Batsheva Deutsch - 01/27/2024 10:43 AM EDT Patient was just seen by Dr. Winter and he would like to know if he is contagious with what he is being treated for? Please advise [phone]. documented in this encounter Plan of Treatment Upcoming Encounters Date Type Department Care Team (Late st Contact Info) Description 02/16/2024 9:15 AM EDT Laboratory Appointment Lab [place] [facility] [place] [address] [place] [address] 02/16/2024 10:20 AM EDT Hospital [place] [address] Mitali Griffiths APRN [facility] HEMATOLOGY [place] [address] 02/16/2024 1:30 PM EDT Office Visit Hematology [place] [address] Albino Bartholomew MD [facility] DR HEMATOLOGY [place] [address] 04/17/2024 10:00 AM EST Office Visit Dermatology at [address] [place] [address] Oli Winter MD [address] [facility] [place] [address] documented as of this encounter Goals Goal Patient Goal Type Associated Problems Recent Progress Patient-Stated? Author Patient's specific desired goal: Patient Facing Action Plan Sharda Lozano, [facility] Note: Remain 95% or more adherent to oral chemotherapy over the next year as measured by refill history documented as of this encounter Visit Diagnoses Not on filedocumented in this encounter Care Teams Behavioral Medical Director Relationship Specialty Start Date End Date Juan Dempsey MD [address] [place] [address] PCP - General Emergency Medicine 08/20/21 documented as of this encounter
--- OUTSIDE RECORDS SUMMARY | 2024-02-03 16:50 | XMS_ITS | Encounter Summary ---
Author Organization [facility] Address [facility] [place] [address] Care Team Providers Care Inspector Precision Name Role Phone Juan Dempsey MD Primary Care Provider [phone] Reason for Visit * Reason Onset Date Comments Medication Refill 01/18/2024 Encounter Details Date Type Department Care Team (Late st Contact Info) Description 01/18/2024 Refill Hematology [place] [address] Kelin Carlos, CONVEYOR LOADER [facility] [place] [address] Hypokalemia Social History Tobacco Use Types Packs/Day Years [...] encounter Miscellaneous Notes * Telephone Encounter - Ce Beard RN - 01/21/2024 9:29 AM EDT Received request via [facility] for refill of Klor-Con. Latest Reference Range & Units 12/08/23 11:56 Potassium 3.5 - 5.0 mMol/L 4.0 Per review of medical record, refill appears to be appropriate. Last prescribed 11/02/23 for 1 month supply and 1 refill. Last appointment 12/08/23: # Mild hypokalemia: continues on potassium chloride 10meq daily. Script states twice daily for total of 20meQ daily. Will clarify with provider. Next appointment 02/16/24 Script prepared and sent to provider for review, signature and escribe. documented in this encounter Plan of Treatment Upcoming Encounters Date Type Department Care Team (Late st Contact Info) Description 02/16/2024 9:15 AM EDT Laboratory Appointment Lab at [facility] [place] On[place] [address] [place], [place] [id number] 02/16/2024 10:20 AM EDT Hospital [place] [address] Mitali Griffiths APRN [facility] DR [place] [address] 02/16/2024 1:30 PM EDT Office Visit Hematology [place] [address] Albino Bartholomew MD [facility] [address] [place] [address] 04/17/2024 10:00 AM EST Office Visit Dermatology at [facility] [address] [place] [address] Oli Winter MD [address] [facility] [address] documented as of this encounter Goals Goal Patient Goal Type Associated Problems Recent Progress Patient-Stated? Author Patient's specific desired goal: Patient Facing Action Plan No Sharda Lee, [facility] Note: Remain 95% or more adherent to oral chemotherapy over the next year as measured by refill history documented as of this encounter Visit Diagnoses Diagnosis Hypokalemia Hypopotassemia documented in this encounter Care Teams Inspector Precision Relationship Specialty Start Date End Date Juan Dempsey MD [address] [place] [address] PCP - General Emergency Medicine 08/20/21 documented as of this encounter
--- OUTSIDE RECORDS SUMMARY | 2024-02-03 16:50 | XMS_ITS | Encounter Summary ---
Author Organization [facility] Address [facility] [place] [address] Care Team Providers Care Dead Mail Checker Name Role Phone Juan Dempsey MD Primary Care Provider [phone] Encounter Details Date Type Department Care Team (Latest Contact Info) Description 01/17/2024 Travel Social History Tobacco Use Types Packs/Day [...] place to sleep or slept in a alf (including now)? No 07/09/2021 Sex and Gender Information Value Date Recorded Sex Assigned at Male 05/23/2021 10:26 AM EST Gender Identity Not on file Sexual Orientation Not on file documented as of this encounter Plan of Treatment Upcoming Encounters Date Type Department Care Team (Late st Contact Info) Description 02/16/2024 9:15 AM EDT Laboratory Appointment Lab at [facility] [place] H[place]ology Oncology [address] [place] [address] 02/16/2024 10:20 AM EDT Hospital Encounter [place] [address] Mitali Griffiths APRN [facility] [address] HEMATOLOGY [place] [address] 02/16/2024 1:30 PM EDT Office Visit Hematology [place] [address] Albino Bartholomew MD [facility] [address] HEMATOLOGY [place] [address] 04/17/2024 10:00 AM EST Office Visit Dermatology at [facility] [address] [place] [address] Oli Winter MD [address] [facility] [address] documented as of this encounter Goals Goal Patient Goal Type Associated Problems Recent Progress Patient-Stated? Author Patient's specific desired goal: Patient Facing Action Plan Sharda Lozano, [facility] Note: Remain 95% or more adherent to oral chemotherapy over the next year as measured by refill history documented as of this encounter Visit Diagnoses Not on filedocumented in this encounter Care Teams Dead Mail Checker Relationship Specialty Start Date End Date Juan Dempsey MD [address] [place] [address] PCP - General Emergency Medicine 08/20/21 documented as of this encounter
--- OUTSIDE RECORDS SUMMARY | 2024-02-03 16:50 | XMS_ITS ---
Author Organization [facility] Address [facility] [place] [address] Care Team Providers Care Out Of Town Collection Clerk Name Role Phone Juan Dempsey MD Primary Care Provider [phone] Active Problems Problem Noted Date Diagnosed Date Renal cell carcinoma 07/16/2021 Medication management 07/16/2021 Renal mass 05/27/2021 Current Oncology Plans No current plan information found. Past Plans ADULT TREATMENT Plan Name Start Date Discontinue Date Treatment Medications Discontinue Reason Plan Provider Cycles DH BCN AMB ONC -BLADDER CANCER - PEMBROLIZUMAB 08/07/2021 09/17/2021 pembrolizumab (Keytruda) in sodium chloride 0.9% 100 mL infusion Not Tolerated Albino Bartholomew MD 2 of 4 cycles started Radiation Treatments * No radiation treatments are documented for this patient in [facility]. Treatments may have been administered in another system. Lifetime Dose Tracking * Chemical Lifetime Dose Automatic Entry Manual Entr y DLP (Dose Length Product) 1,217 mGy-cm 1,217 mGy-cm 0 mGy-cm CTDI (CT Dose Index) Min 24.09 mGy 24.09 mGy 0 m Gy CTDI (CT Dose Index) Max 24.09 mGy 24.09 mGy 0 m Gy
--- OUTSIDE RECORDS SUMMARY | 2024-02-03 16:50 | XMS_ITS | Encounter Summary ---
Author Organization [facility] Address [facility] [place] [address] Care Team Providers Care Heel Finisher Name Role Phone Jaun Dempsey MD Primary Care Provider [phone] Encounter Details Date Type Department Care Team (Late st Contact Info) Description 02/01/2024 Telephone Dermatology at [facility] [address] [place] [address] Oli Winter MD [address] [facility] [address] Social History Tobacco Use Types Packs/Day Years [...] place to sleep or slept in a senior care (including now)? No 07/09/2021 Sex and Gender Information Value Date Recorded Sex Assigned at Male 05/23/2021 10:26 AM EST Gender Identity Not on file Sexual Orientation Not on file documented as of this encounter Miscellaneous Notes * Telephone Encounter - Arlet Casillas - 02/01/2024 1:23 PM EDT Cristofer left a 2nd message today asking for a call back regarding stomach pain related to taking doxycycline. documented in this encounter Plan of Treatment Upcoming Encounters Date Type Department Care Team (Late st Contact Info) Description 02/16/2024 9:15 AM EDT Laboratory Appointment Lab at [facility] [place] On[place] [address] [place] [address] 02/16/2024 10:20 AM EDT Hospital [place] [address] Mitali Griffiths APRN [facility] HEMATOLOGY [place] [address] 02/16/2024 1:30 PM EDT Office Visit Hematology [place] [address] Albino Bartholomew MD [facility] HEMATOLOGY [place] [address] 04/17/2024 10:00 AM EST Office Visit Dermatology at [address] [place] [address] Oli Winter MD [address] [facility] [address] documented as of this encounter Goals Goal Patient Goal Type Associated Problems Recent Progress Patient-Stated? Author Patient's specific desired goal: Patient Facing Action Plan No Sharda Lee, [facility] Note: Remain 95% or more adherent to oral chemotherapy over the next year as measured by refill history documented as of this encounter Visit Diagnoses Not on filedocumented in this encounter Care Teams Heel Finisher Relationship Specialty Start Date End Date Juan Dempsey MD [address] [place] [address] PCP - General Emergency Medicine 08/20/21 documented as of this encounter
[2024-02-03 16:51] VITALS: BP 134/79; PULSE 72; RESP 16; TEMP 37.1; O2SAT 98
--- OUTSIDE RECORDS SUMMARY | 2024-02-03 16:51 | XMS_ITS | Encounter Summary ---
Author Organization [facility] Address [facility] [place] [address] Care Team Providers Care Door Opener Name Role Phone Juan Dempsey MD Primary Care Provider [phone] Encounter Details Date Type Department Care Team (Latest Contact Info) Description 06/30/2023 Travel Social History Tobacco Use Types Packs/Day [...] place to sleep or slept in a long term (including now)? No 07/09/2021 Sex and Gender Information Value Date Recorded Sex Assigned at Male 05/23/2021 10:26 AM EST Gender Identity Not on file Sexual Orientation Not on file documented as of this encounter Plan of Treatment Upcoming Encounters Date Type Department Care Team (Late st Contact Info) Description 02/16/2024 9:15 AM EDT Laboratory Appointment Lab at [facility] Hematology Oncology [address] [place] [address] 02/16/2024 10:20 AM EDT Hospital [place] [address] Mitali Griffiths APRN [facility] DR HEMATOLOGY [place] [address] 02/16/2024 1:30 PM EDT Office Visit Hematology [place] [address] Albino Bartholomew MD [facility] DR HEMATOLOGY [place] [address] 04/17/2024 10:00 AM EST Office Visit Dermatology at [facility] [address] [place] [address] Oli Winter MD [address] [facility] [address] documented as of this encounter Visit Diagnoses Not on filedocumented in this encounter Care Teams Door Opener Relationship Specialty Start Date End Date Juan Dempsey MD [address] [place] [address] PCP - General Emergency Medicine 08/20/21 documented as of this encounter
--- OUTSIDE RECORDS SUMMARY | 2024-02-03 16:51 | XMS_ITS | Encounter Summary ---
Author Organization [facility] Address [facility] [place] [address] Care Team Providers Care Sanitation Worker Hosing Machinery Name Role Phone Juan Dempsey MD Primary Care Provider [phone] Encounter Details Date Type Department Care Team (Late st Contact Info) Description 08/19/2023 Orders [place] [address] Kelin Carlos APRN [facility] [address] [place] [address] Social History Tobacco Use Types Packs/Day Years [...] place to sleep or slept in a fdc (including now)? No 07/09/2021 Sex and Gender Information Value Date Recorded Sex Assigned at Male 05/23/2021 10:26 AM EST Gender Identity Not on file Sexual Orientation Not on file documented as of this encounter Plan of Treatment Upcoming Encounters Date Type Department Care Team (Late st Contact Info) Description 02/16/2024 9:15 AM EDT Laboratory Appointment [place] [facility] [address] [place] [address] 02/16/2024 10:20 AM EDT [place] [address] Mitali Griffiths APRN [facility] [address] [place] [address] 02/16/2024 1:30 PM EDT Office Visit [place] [address] Albino Bartholomew MD [facility] [address] [place] [address] 04/17/2024 10:00 AM EST Office Visit Dermatology at [facility] [address] [place] [address] Oli Winter MD [address] [facility] [place] [address] documented as of this encounter Visit Diagnoses Not on filedocumented in this encounter Care Teams Sanitation Worker Hosing Machinery Relationship Specialty Start Date End Date Juan Dempsey MD [address] [place] [address] PCP - General Emergency Medicine 08/20/21 documented as of this encounter
--- OUTSIDE RECORDS SUMMARY | 2024-02-03 16:51 | XMS_ITS | Encounter Summary ---
Author Organization [facility]ly [facility] Address [facility] [place] [address] Care Team Providers Care Assembler Wire Mesh Gate Name Role Phone Juan Dempsey MD Primary Care Provider [phone] Encounter Details Date Type Department Care Team (Latest Contact Info) Description 10/08/2023 10:39 AM EDT - 10/08/2023 11:59 PM EDT Hospital Encounter [place]ematology [place] [phone] Metastatic 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, unspecified laterality; High risk medication use Discharge Disposition: Home Social History Tobacco Use [...] place to sleep or slept in a chcf (including now)? No 07/09/2021 Sex and Gender Information Value Date Recorded Sex Assigned at Male 05/23/2021 10:26 AM EST Gender Identity Not on file Sexual Orientation Not on file documented as of this encounter Medications at Time of Discharge Medication Sig Dispensed Refills Start Date End Date triamcinolone (Kenalog) 0.1 % Cream Apply topically [...] mouth 2 times daily. 60 tablet 1 08/24/2023 11/02/2023 cabozantinib (Cabometyx) 20 mg tabletIndications:fatmata l cell carcinoma Take daily 5 days/week, then hold for 2 days/week. Take on an empty stomach. Call clinic before starting medication. Indications: renal cell carcinoma 20 tablet 5 08/19/2023 11/15/2023 documented as of this encounter Plan of Treatment Upcoming Encounters Date Type Department Care Team (Late st Contact Info) Description 02/16/2024 9:15 AM EDT Laboratory Appointment Lab at [facility] Hematology Oncology [address] [place] [address] 02/16/2024 10:20 AM EDT Hospital [place] [phone] Mitali Griffiths APRN [facility] [address] [place] [address] 02/16/2024 1:30 PM EDT Office Visit Hematology [place] [phone] Albino Bartholomew MD [facility] [address] [place] [address] 04/17/2024 10:00 AM EST Office Visit [facility] at [facility] [address] [place] [address] Oli Winter MD [address] [facility] [place] [address] documented as of this encounter Procedures Procedure Name Priority Date/Time Associated Diagnosis Comments HEMOGRAM Routine 10/08/2023 10:50 AM EDT Metastatic 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, unspecified laterality DIFFERENTIAL, AUTOMATED Routine 10/08/2023 10:50 AM EDT Metastatic 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, unspecified laterality CBC (WITH DIFF) Routine 10/08/2023 10:50 AM EDT Metastatic 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, unspecified laterality TSH Routine 10/08/2023 10:50 AM EDT Metastatic 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, unspecified laterality High risk medication use T4, FREE Routine 10/08/2023 10:50 AM EDT Metastatic 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, unspecified laterality High risk medication use COMPREHENSIVE METABOLIC PANEL Routine 10/08/2023 10:50 AM EDT documented in this encounter Results * (ABNORMAL) Comprehensive metabolic panel (non-fasting) (10/08/2023 10:50 AM EDT) Glucose 71 65 - 199 mg/dL [facility] Comment:Diabetes: >=200 mg/d L plus symptoms Blood Urea Nitrogen 22(H) 10 - 20 mg/dL [facility] Creatinine 1.55(H) 0.80 - 1.50 mg/dL [facility] Sodium 143 135 - 145 mmol/L [facility] Potassium 4.1 3.5 - 5.0 mmol/L [facility] Comment: Please note: ??Patients with WBC >100,000 may have falsely elevated Potassium levels. ??For accurate Potassium quantification in these patients send serum separator tube (gold top) for subsequent determinations. ??Contact the Clinical Chemistry Laboratory if there are any questions. Chloride 106 98 - 107 mmol/L [facility] Carbon Dioxide 25 22 - 31 mmol/L [facility] Anion Gap 12 5 - 15 mmol/L [facility] Calcium 9.7 8.5 - 10.5 mg/dL [facility] Protein, Total 6.9 6.1 - 8.0 g/dL [facility] Albumin 4.1 3.2 - 5.2 g/dL [facility] Aspartate Aminotransferase 28 0 - 39 unit/L [facility] Alanine Aminotransferase 31 0 - 55 unit/L [facility] Alkaline Phosphatase 154(H) 40 - 130 unit/L [facility] Bilirubin, Total 0.3 0.2 - 1.3 mg/dL [facility] Est Glomerular Filtration Rate 48(L) >=60 mL/min/1. 73 m?? [facility] Comment: This patient's estimated GFR was [...] urine creatinine clearance. Assignment of CKD stage 1-5 for patients with an eGFR near the transition point between stages may be based on clinical assessment of muscle mass and symptoms in addition to eGFR. Blood Venous Draw / Unknown 10/08/2023 10:50 AM EDT 10/08/2023 11:07 AM EDT Narrative Resulting Agency Comment Spec In Lab Albino Bartholomew MD CHEMISTRY ORDERABLES [facility] [place] [address] * Differential, Automated (10/08/2023 10:50 AM EDT) Neutrophil % 63.2 % [facility] Neutrophil Absolute 4.83 1.70 - 6.10 x10(3)/[facility] Lymph % 22.7 % [facility] Lymphocytes Abs 1.7 0.9 - 3.2 x10(3)/[facility] Monocyte % 7.0 % [facility] Monocyte Abs 0.5 0.3 - 0.9 x10(3)/[facility] Eos % 5.7 % [facility] Eosinophils Abs 0.4 0.0 - 0.4 x10(3)/[facility] Basophil % 1.0 % [facility] Baso Absolute 0.1 0.0 - 0.1 x10(3)/[facility] Immature Gran % 0.40 % [facility] Comment: Immature granulocytes(IG's)percentage and absolute count will include metamyelocytes, myelocytes, and promyelocytes. Blood smears from CBCs yielding IG's will be scanned manually for concordance. If this scan disagrees with the automated IG or if promyelocytes are noted, a manual differential will be performed. Immature Gran Absolute 0.03 0.00 - 0.04 x10(3)/[facility] Blood 10/08/2023 10:5 0 AM EDT 10/08/2023 11:07 AM EDT Narrative Resulting Agency Comment Spec In Lab Kelin Carlos IRRIGATION EQUIPMENT INSTALLER HEMATOLOGY ORDERAB LES Performing Organization Address City/State/[facility] Co de Phone Number [facility] [place] [address] * (ABNORMAL) Hemogram (10/08/2023 10:50 AM EDT) White Blood Cell 7.7 4.0 - 9.5 x10(3)/ L [facility] Red Blood Cell 4.70 4.58 - 5.54 x10(6)/ L [facility] Hemoglobin 14.4 13.7 - 16.5 g/dL [facility] Hematocrit 43.6 40.5 - 48.5 % [facility] Mean Cell Volume 92.8 82.9 - 93.1 fL [facility] Mean Cell Hemoglobin 30.6 27.5 - 32.1 pg [facility] Mean Cell Hemoglobin Concentration 33.0 32.0 - 35.7 g/dL [facility] Platelet 186 145 - 357 x10(3)/ L [facility] RDW Standard Deviation 49.9(H) 36.0 - 45.0 fL [facility] RDW coefficient of variation 14.6(H) 11.4 - 13.8 % [facility] Mean Platelet Volume 9.5 7.6 - 12.9 fL [facility] NRBC% auto 0.0 % [facility] NRBC Absolute 0.000 0.000 - 0.000 x10(3)/mc L [facility] Blood 10/08/2023 10:5 0 AM EDT 10/08/2023 11:07 AM EDT Narrative Resulting Agency Comment Spec In Lab Kelin Carlos APRN HEMATOLOGY ORDERAB LES Performing Organization Address [facility] de Phone Number [facility] [place] [address] * T4, free (10/08/2023 10:50 AM EDT) Free T4 1.41 0.93 - 1.70 ng/dL [facility] Comment: Reference Interval (ng/dL): Females: ??First Trimester: 0.97-1.68 ??Second Trimester: 0.77-1.51 ??Third Trimester: 0.77-1.49 Blood 10/08/2023 10:5 0 AM EDT 10/08/2023 11:07 AM EDT Narrative Resulting Agency Comment Spec In Lab Kelin Carlos IRRIGATION EQUIPMENT INSTALLER CHEMISTRY ORDERABL ES Performing Organization Address [facility] Co de Phone Number [facility] [place] [address] * TSH (10/08/2023 10:50 AM EDT) Thyroid Stimulating Hormone 3.50 0.27 - 4.20 mcIU/mL [facility] Comment: Reference Interval (mcIU/mL): Females: ??First Trimester: 0.23-3.88 ??Second Trimester: 0.22-3.90 ??Third Trimester: 0.44-4.66 Blood 10/08/2023 10:5 0 AM EDT 10/08/2023 11:07 AM EDT Narrative Resulting Agency Comment Spec In Lab Kelin Carlos IRRIGATION EQUIPMENT INSTALLER CHEMISTRY ORDERABL ES Performing Organization Address City/State/[facility] Co de Phone Number [facility] [place] [address] documented in this encounter Visit Diagnoses Diagnosis Metastatic 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, unspecified laterality High risk medication use Encounter for long-term (current) use of other medications documented in this encounter Care Teams Assembler Wire Mesh Gate Relationship Specialty Start Date End Date Juan Dempsey MD [address] [place] [address] PCP - General Emergency Medicine 08/20/21 documented as of this encounter
--- OUTSIDE RECORDS SUMMARY | 2024-02-03 16:51 | XMS_ITS | Encounter Summary ---
Author Organization [facility] Address [facility] [place] [address] Care Team Providers Care Wrapper Sizer Name Role Phone Juna Dempsey MD Primary Care Provider [phone] Reason for Visit * Reason Onset Date Comments Medication Refill 11/02/2023 Encounter Details Date Type Department Care Team (Late st Contact Info) Description 11/02/2023 Refill Hematology [place] [address] Kelin Carlos, FOOD DEMONSTRATOR [facility] [place] [address] Social History Tobacco Use Types Packs/Day Years [...] No 07/09/2021 Housing Stability Vital Sign Answer Ednnis e Recorded In the last 12 months, [...] 9:15 AM EDT Laboratory Appointment Lab at [facility] Hematology Oncology [address] [place] [address] 02/16/2024 10:20 AM EDT Hospital [place] [phone] Mitali Griffiths APRN [facility] [place] [address] 02/16/2024 1:30 PM EDT Office Visit Hematology [place] [phone] Albino Bartholomew MD [facility] [address] [place] [address] 04/17/2024 10:00 AM EST Office Visit Dermatology at [facility] [address] [place] [address] Oli Winter MD [address] [place] [address] documented as of this encounter Visit Diagnoses Not on filedocumented in this encounter Care Teams Wrapper Sizer Relationship Specialty Start Date End Date Juan Dempsey MD [address] [place] [address] PCP - General Emergency Medicine 08/20/21 documented as of this encounter
--- OUTSIDE RECORDS SUMMARY | 2024-02-03 16:51 | XMS_ITS | Encounter Summary ---
Author Organization [facility] Address [facility] [place] [address] Care Team Providers Care Motion Picture Set Grip Name Role Phone Juan Dempsey MD Primary Care Provider [phone] Encounter Details Date Type Department Care Team (Late st Contact Info) Description 09/30/2023 Telephone Hematology [place] [address] Daxa Arriola RN Social History Tobacco Use Types Packs/Day Years [...] encounter Miscellaneous Notes * Telephone Encounter - Daxa Arriola RN - 09/30/2023 9:42 AM EDT Message received from clinical medical secretary receptionist: cristofer said he got a msg from you and he would like to speak to you about this. Call placed to pt to discuss above. Pt instructed on use of medications prescribed for rash. Pt confirmed that pharmacy will be able to fill for him today prior to leaving [facility]. All questions answered. Pt advised to call office at with any worsening symptoms or concerns. Pt verbalized understanding and agreement with plan. documented in this encounter Plan of Treatment Upcoming Encounters Date Type Department Care Team (Late st Contact Info) Description 02/16/2024 9:15 AM EDT Laboratory Appointment Lab at [facility] Hematology Oncology [address] [place] [address] 02/16/2024 10:20 AM EDT Hospital [place] [address] [facility] DR HEMATOLOGY [place] [address] 02/16/2024 1:30 PM EDT Office Visit Hematology [place] [address] [facility] [address] HEMATOLOGY [place] [address] 04/17/2024 10:00 AM EST Office Visit Dermatology at [address] [place] [address] Oli Winter MD [address] [facility] [place] [address] documented as of this encounter Visit Diagnoses Not on filedocumented in this encounter Care Teams Motion Picture Set Grip Relationship Specialty Start Date End Date Juan Dempsey MD [address] [place] [address] PCP - General Emergency Medicine 08/20/21 documented as of this encounter
--- OUTSIDE RECORDS SUMMARY | 2024-02-03 16:51 | XMS_ITS | Encounter Summary ---
Author Organization [facility] Address [facility] [place] [address] Care Team Providers Care White Sugar Supervisor Name Role Phone Juan Dempsey MD Primary Care Provider [phone] Encounter Details Date Type Department Care Team (Latest Contact Info) Description 08/24/2023 9:54 AM EDT - 08/24/2023 11:59 PM EDT Hospital Encounter [place]ematology [place] [phone] Metastatic 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, unspecified laterality; Drug induced liver disease Discharge Disposition: Home Social History Tobacco Use [...] Sig Dispensed Refills Start Date End Date chlorthalidone (Hygroten) 25 mg Tablet Take 25 [...] cell carcinoma 20 tablet 5 08/19/2023 11/15/2023 levothyroxine (Synthroid) 75 mcg tablet Take 1 tablet by mouth daily. 30 tablet 5 03/17/2023 08/26/2023 documented as of this encounter Plan of Treatment Upcoming Encounters Date Type Department Care Team (Late st Contact Info) Description 02/16/2024 9:15 AM EDT Laboratory Appointment Lab at [facility] Hematology Oncology [address] [place] [address] 02/16/2024 10:20 AM EDT Hospital [place] [address] Mitali Griffiths APRN [facility] DR HEMATOLOGY [place] [address] 02/16/2024 1:30 PM EDT Office Visit [place]ematology [place] [phone] Albino Bartholomew MD [facility] DR HEMATOLOGY [place] [address] 04/17/2024 10:00 AM EST Office Visit Dermatology at [facility] [address] [place] [address] Oli Winter MD [address] [facility] [place] [place] [address] documented as of this encounter Procedures Procedure Name Priority Date/Time Associated Diagnosis Comments BILIRUBIN, DIRECT Routine 08/24/2023 10: 01 AM EDT HEMOGRAM Routine 08/24/2023 10:01 AM EDT Metastatic 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, unspecified laterality DIFFERENTIAL, AUTOMATED Routine 08/24/2023 10:01 AM EDT Metastatic 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, unspecified laterality CBC (WITH DIFF) Routine 08/24/2023 10:01 AM EDT Metastatic 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, unspecified laterality TSH Routine 08/24/2023 10:01 AM EDT Metastatic 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, unspecified laterality T4, FREE Routine 08/24/2023 10:01 AM EDT Metastatic 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, unspecified laterality COMPREHENSIVE METABOLIC PANEL Routine 08/24/2023 10:01 AM EDT Metastatic 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, unspecified laterality documented in this encounter Results * Bilirubin, Direct (08/24/2023 10:01 AM EDT) Pathologist [facility] Bilirubin, Direct 0.1 0.0 - 0.3 mg/dL [facility] Blood 08/24/2023 10:0 1 AM EDT 08/24/2023 10:06 AM EDT Narrative Resulting Agency Comment Spec In Lab Ana Pringle MD CHEMISTRY ORDERABLES Performing Organization Address City/State/[facility] Co de Phone Number [facility] [place] [phone] * Differential, Automated (08/24/2023 10:01 AM EDT) Pathologist [facility] Neutrophil % 72.6 % [facility] Neutrophil Absolute 5.87 1.70 - 6.10 x10(3)/[facility] Lymph % 17.7 % [facility] Lymphocytes Abs 1.4 0.9 - 3.2 x10(3)/[facility] Monocyte % 4.0 % [facility] Monocyte Abs 0.3 0.3 - 0.9 x10(3)/[facility] Eos % 4.3 % [facility] Eosinophils Abs 0.4 0.0 - 0.4 x10(3)/[facility] Basophil % 1.2 % [facility] Baso Absolute 0.1 0.0 - 0.1 x10(3)/[facility] Immature Gran % 0.20 % [facility] Comment: Immature granulocytes(IG's)percentage and absolute count will include metamyelocytes, myelocytes, and promyelocytes. Blood smears from CBCs yielding IG's will be scanned manually for concordance. If this scan disagrees with the automated IG or if promyelocytes are noted, a manual differential will be performed. Immature Gran Absolute 0.02 0.00 - 0.04 x10(3)/mcL [facility] Blood 08/24/2023 10:0 1 AM EDT 08/24/2023 10:07 AM EDT Narrative Resulting Agency Comment Spec In Lab Kelin Carlos BUSINESS SERVICES INTERN HEMATOLOGY ORDERAB LES [facility] [place] [address] * (ABNORMAL) Hemogram (08/24/2023 10:01 AM EDT) White Blood Cell 8.1 4.0 - 9.5 x10(3)/mc L [facility] Red Blood Cell 4.66 4.58 - 5.54 x10(6)/mc L [facility] Hemoglobin 14.3 13.7 - 16.5 g/dL [facility] Hematocrit 42.3 40.5 - 48.5 % [facility] Mean Cell Volume 90.8 82.9 - 93.1 fL [facility] Mean Cell Hemoglobin 30.7 27.5 - 32.1 pg [facility] Mean Cell Hemoglobin Concentration 33.8 32.0 - 35.7 g/dL [facility] Platelet 185 145 - 357 x10(3)/mc L [facility] RDW Standard Deviation 49.1(H) 36.0 - 45.0 fL [facility] RDW coefficient of variation 14.7(H) 11.4 - 13.8 % [facility] Mean Platelet Volume 9.8 7.6 - 12.9 fL [facility] NRBC% auto 0.0 % [facility] NRBC Absolute 0.000 0.000 - 0.000 x10(3)/mc L [facility] Blood 08/24/2023 10:0 1 AM EDT 08/24/2023 10:07 AM EDT Narrative Resulting Agency Comment Spec In Lab Kelin Carlos BUSINESS SERVICES INTERN HEMATOLOGY ORDERAB LES Performing Organization Address City/State/[facility] Co de Phone Number [facility] [place] [address] * (ABNORMAL) Comprehensive metabolic panel (non-fasting) (08/24/2023 10:01 AM EDT) Glucose 106 65 - 199 mg/dL [facility] Comment:Diabetes: >=200 mg/d L plus symptoms Blood Urea Nitrogen 24(H) 10 - 20 mg/dL [facility] Creatinine 1.67(H) 0.80 - 1.50 mg/dL [facility] Sodium 141 135 - 145 mmol/L [facility] Potassium 3.3(L) 3.5 - 5.0 mmol/L [facility] Comment: Please note: ??Patients with WBC >100,000 may have falsely elevated Potassium levels. ??For accurate Potassium quantification in these patients send serum separator tube (gold top) for subsequent determinations. ??Contact the Clinical Chemistry Laboratory if there are any questions. Chloride 104 98 - 107 mmol/L [facility] Carbon Dioxide 27 22 - 31 mmol/L [facility] Anion Gap 10 5 - 15 mmol/L [facility] Calcium 8.7 8.5 - 10.5 mg/dL [facility] Protein, Total 6.4 6.1 - 8.0 g/dL [facility] Albumin 3.8 3.2 - 5.2 g/dL [facility] Aspartate Aminotransferase 22 0 - 39 unit/L [facility] Alanine Aminotransferase 27 0 - 55 unit/L [facility] Alkaline Phosphatase 147(H) 40 - 130 unit/L [facility] Bilirubin, Total 0.4 0.2 - 1.3 mg/dL [facility] Est Glomerular Filtration Rate 44(L) >=60 mL/min/1. 73 m?? [facility] Comment: This patient's estimated [...] and symptoms in addition to eGFR. Blood 08/24/2023 10:0 1 AM EDT 08/24/2023 10:06 AM EDT Narrative Resulting Agency Comment Spec In Lab Kelin Carlos BUSINESS SERVICES INTERN CHEMISTRY ORDERABL ES Performing Organization Address [facility] Co de Phone Number [facility] [place] [address] * TSH (08/24/2023 10:01 AM EDT) Thyroid Stimulating Hormone 3.25 0.27 - 4.20 mcIU/mL [facility] Comment: Reference Interval (mcIU/mL): Females: ??First Trimester: 0.23-3.88 ??Second Trimester: 0.22-3.90 ??Third Trimester: 0.44-4.66 Blood 08/24/2023 10:0 1 AM EDT 08/24/2023 10:06 AM EDT Narrative Resulting Agency Comment Spec In Lab Kelin Carlos BUSINESS SERVICES INTERN CHEMISTRY ORDERABL ES Performing Organization Address [facility]/ZIP Co de Phone Number [facility] [place] [address] * T4, free (08/24/2023 10:01 AM EDT) Free T4 1.48 0.93 - 1.70 ng/dL [facility] Comment: Reference Interval (ng/dL): Females: ??First Trimester: 0.97-1.68 ??Second Trimester: 0.77-1.51 ??Third Trimester: 0.77-1.49 Blood 08/24/2023 10:0 1 AM EDT 08/24/2023 10:06 AM EDT Narrative Resulting Agency Comment Spec In Lab Kelin Carlos BUSINESS SERVICES INTERN CHEMISTRY ORDERABL ES Performing Organization Address City/State/[facility] Co de Phone Number [facility] [place] [address] documented in this encounter Visit Diagnoses Diagnosis Metastatic 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, unspecified laterality Drug induced liver disease documented in this encounter Care Teams White Sugar Supervisor Relationship Specialty Start Date End Date Juan Dempsey MD [address] [place] [address] PCP - General Emergency Medicine 08/20/21 documented as of this encounter
--- OUTSIDE RECORDS SUMMARY | 2024-02-03 16:51 | XMS_ITS | Encounter Summary ---
Author Organization [facility] Address [facility] [place] [address] Care Team Providers Care Hand Kiss Setter Name Role Phone Juan Dempsey MD Primary Care Provider [phone] Encounter Details Date Type Department Care Team (Late st Contact Info) Description 08/31/2023 Telephone [place]ematology [place] [address] Mary Salas RN Social History Tobacco Use Types Packs/Day [...] encounter Miscellaneous Notes * Telephone Encounter - Mary Salas RN - 09/01/2023 6:30 AM EDT Reviewed lab work with provider. Per Jennifer Carlos APRN patient should continue on potassium supplements and will recheck labs when he comes back to clinic. Call placed to patient updated him on the above. He will also continue to push fluids. Instructed him to call clinic back in the interim with any new or worsening symptoms. Pt verbalized understanding and agreement and knows to call clinic with any concerns and/or questions. documented in this encounter Plan of Treatment Upcoming Encounters Date Type Department Care Team (Late st Contact Info) Description 02/16/2024 9:15 AM EDT Laboratory Appointment Lab at [facility] Hematology Oncology [address] [place] [address] 02/16/2024 10:20 AM EDT Hospital [place] [address] Mitali Griffiths APRN [facility] DR HEMATOLOGY [place] [address] 02/16/2024 1:30 PM EDT Office Visit [place] [phone] Albino Bartholomew MD [facility] DR HEMATOLOGY [place] [address] 04/17/2024 10:00 AM EST [facility] [address] [place] [address] Oli Winter MD [address] [facility] [place] [place] [address] documented as of this encounter Visit Diagnoses Not on filedocumented in this encounter Care Teams Hand Kiss Setter Relationship Specialty Start Date End Date Juan Dempsey MD [address] [place] [address] PCP - General Emergency Medicine 08/20/21 documented as of this encounter
--- OUTSIDE RECORDS SUMMARY | 2024-02-03 16:51 | XMS_ITS | Encounter Summary ---
Author Organization [facility] Address [facility] [place] [address] Care Team Providers Care Conveyor Weigher Operator Name Role Phone Juan Dempsey MD Primary Care Provider [phone] Encounter Details Date Type Department Care Team (Latest Contact Info) Description 07/07/2023 8:56 AM EST - 07/07/2023 11:59 PM EST Hospital Encounter H[place]ology [place] [phone] Metastatic 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, unspecified laterality Discharge Disposition: Home Social History Tobacco Use [...] medical appointments or from getting medications? No 0 01/2022 In the past 12 months, has [...] place to sleep or slept in a mcfp (including now)? No 07/09/2021 Sex and Gender [...] Take 100 mg by mouth daily. 04/11/2019 levothyroxine (Synthroid) 75 mcg tablet Take 1 tablet by mouth daily. 30 tablet 5 03/17/2023 08/26/2023 cabozantinib (Cabometyx) 20 mg tabletIndications:fatmata l cell carcinoma Take 1 tablet (20 mg) by mouth daily. Take on an empty stomach. Call clinic before starting medication. Indications: renal cell carcinoma 30 tablet 11 09/16/2022 08/19/2023 potassium chloride SA (Klor-con) 10 mEq Tab Sust.Rel. Particle/Crystal Take 1 tablet by mouth 2 times daily. 60 tablet 1 04/04/2022 08/24/2023 documented as of this encounter Plan of Treatment Upcoming Encounters Date Type Department Care Team (Late st Contact Info) Description 02/16/2024 9:15 AM EDT Laboratory Appointment Lab at [facility] Hematology Oncology [address] [place] [address] 02/16/2024 10:20 AM EDT Hospital [place] [phone] Mitali Griffiths APRN [facility] [address] [place] [address] 02/16/2024 1:30 PM EDT Office Visit Hematology [place] [phone] Albino Barthoolmew MD [facility] [address] [place] [address] 04/17/2024 10:00 AM EST Office Visit Dermatology at [facility] [address] [place] [address] Oli Winter MD [address] [facility] [place] [address] documented as of this encounter Procedures Procedure Name Priority Date/Time Associated Diagnosis Comments HEMOGRAM STAT 07/07/2023 9:01 AM EST Metastatic 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, unspecified laterality DIFFERENTIAL, AUTOMATED STAT 07/07/2023 9:01 AM EST Metastatic 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, unspecified laterality CBC (WITH DIFF) STAT 07/07/2023 9:01 AM EST Metastatic 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, unspecified laterality TSH STAT 07/07/2023 9:01 AM EST Metastatic 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, unspecified laterality T4, FREE STAT 07/07/2023 9:01 AM EST Metastatic 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, unspecified laterality COMPREHENSIVE METABOLIC PANEL STAT 07/07/2023 9:01 AM EST Metastatic 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, unspecified laterality documented in this encounter Results * (ABNORMAL) Differential, Automated (07/07/2023 9:01 AM EST) Neutrophil % 71.9 % [facility] Neutrophil Absolute 6.26(H) 1.70 - 6.10 x10(3)/mc L [facility] Lymph % 18.5 % [facility] Lymphocytes Abs 1.6 0.9 - 3.2 x10(3)/mc L [facility] Monocyte % 3.8 % [facility] Monocyte Abs 0.3 0.3 - 0.9 x10(3)/mc L [facility] Eos % 4.6 % [facility] Eosinophils Abs 0.4 0.0 - 0.4 x10(3)/mc L [facility] Basophil % 1.0 % [facility] Baso Absolute 0.1 0.0 - 0.1 x10(3)/mc L [facility] Immature Gran % 0.20 % [facility] Comment: Immature granulocytes(IG's)percentage and absolute count will include metamyelocytes, myelocytes, and promyelocytes. Blood smears from CBCs yielding IG's will be scanned manually for concordance. If this scan disagrees with the automated IG or if promyelocytes are noted, a manual differential will be performed. Immature Gran Absolute 0.02 0.00 - 0.04 x10(3)/mc L [facility] Blood 07/07/2023 9:01 AM EST 07/07/2023 9:15 AM EST Narrative Resulting Agency Comment Spec In Lab Lulu Jolley APRN HEMATOLOGY SUNITHA SERRANO [facility] [place] [address] * (ABNORMAL) Hemogram (07/07/2023 9:01 AM EST) White Blood Cell 8.7 4.0 - 9.5 x10(3)/mc L [facility] Red Blood Cell 4.40(L) 4.58 - 5.54 x10(6)/mc L [facility] Hemoglobin 13.6(L) 13.7 - 16.5 g/dL [facility] Hematocrit 40.4(L) 40.5 - 48.5 % [facility] Mean Cell Volume 91.8 82.9 - 93.1 fL [facility] Mean Cell Hemoglobin 30.9 27.5 - 32.1 pg [facility] Mean Cell Hemoglobin Concentration 33.7 32.0 - 35.7 g/dL [facility] Platelet 201 145 - 357 x10(3)/mc L [facility] RDW Standard Deviation 48.4(H) 36.0 - 45.0 fL [facility] RDW coefficient of variation 14.6(H) 11.4 - 13.8 % [facility] Mean Platelet Volume 9.5 7.6 - 12.9 fL [facility] NRBC% auto 0.0 % [facility] NRBC Absolute 0.000 0.000 - 0.000 x10(3)/ L [facility] Blood 07/07/2023 9:01 AM EST 07/07/2023 9:15 AM EST Narrative Resulting Agency Comment Spec In Lab Lulu Jolley APRN HEMATOLOGY SUNITHA SERRANO [facility] Organization Address City/State/[facility] Co de Phone Number [facility] [place] [address] * T4, free (07/07/2023 9:01 AM EST) Free T4 1.47 0.93 - 1.70 ng/dL [facility] Comment: Reference Interval (ng/dL): Females: ??First Trimester: 0.97-1.68 ??Second Trimester: 0.77-1.51 ??Third Trimester: 0.77-1.49 Blood 07/07/2023 9:01 AM EST 07/07/2023 9:14 AM EST Narrative Resulting Agency Comment Spec In Lab Lulu Jolley APRN CHEMISTRY ORDER RADHA Performing Organization Address [facility] Co de Phone Number [facility] [place] [address] * TSH (07/07/2023 9:01 AM EST) Thyroid Stimulating Hormone 3.28 0.27 - 4.20 mcIU/mL [facility] Comment: Reference Interval (mcIU/mL): Females: ??First Trimester: 0.23-3.88 ??Second Trimester: 0.22-3.90 ??Third Trimester: 0.44-4.66 Blood 07/07/2023 9:01 AM EST 07/07/2023 9:14 AM EST Narrative Resulting Agency Comment Spec In Lab Lulu Jolley APRN CHEMISTRY ORDER RADHA Performing Organization Address [facility] de Phone Number [facility] [place] [address] * (ABNORMAL) Comprehensive metabolic panel (non-fasting) (07/07/2023 9:01 AM EST) Glucose 164 65 - 199 mg/dL [facility] Comment:Diabetes: >=200 mg/d L plus symptoms Blood Urea Nitrogen 19 10 - 20 mg/dL [facility] Creatinine 1.60(H) 0.80 - 1.50 mg/dL [facility] Sodium 141 135 - 145 mmol/L [facility] Potassium 3.7 3.5 - 5.0 mmol/L [facility] Comment: Please note: ??Patients with WBC >100,000 may have falsely elevated Potassium levels. ??For accurate Potassium quantification in these patients send serum separator tube (gold top) for subsequent determinations. ??Contact the Clinical Chemistry Laboratory if there are any questions. Chloride 104 98 - 107 mmol/L [facility] Carbon Dioxide 28 22 - 31 mmol/L [facility] Anion Gap 9 5 - 15 mmol/L [facility] Calcium 9.1 8.5 - 10.5 mg/dL [facility] Protein, Total 6.6 6.1 - 8.0 g/dL [facility] Albumin 4.0 3.2 - 5.2 g/dL [facility] Aspartate Aminotransferase 21 0 - 39 unit/L [facility] Alanine Aminotransferase 31 0 - 55 unit/L [facility] Alkaline Phosphatase 149(H) 40 - 130 unit/L [facility] Bilirubin, Total 0.4 0.2 - 1.3 mg/dL [facility] Est Glomerular Filtration Rate 47(L) >=60 mL/min/1. 73 m?? [facility] Comment: This patient's estimated [...] and symptoms in addition to eGFR. Blood 07/07/2023 9:01 AM EST 07/07/2023 9:14 AM EST Narrative Resulting Agency Comment Spec In Lab Lulu Jolley APRN CHEMISTRY ORDER RADHA [facility] [place] [address] documented in this encounter Visit Diagnoses Diagnosis Metastatic 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, unspecified laterality documented in this encounter Care Teams Conveyor Weigher Operator Relationship Specialty Start Date End Date Juan Dempsey MD [address] [place] [address] PCP - General Emergency Medicine 08/20/21 documented as of this encounter
--- OUTSIDE RECORDS SUMMARY | 2024-02-03 16:51 | XMS_ITS | Encounter Summary ---
Author Organization [facility] Address [facility] [place] [address] Care Team Providers Care Mail Service Coordinator Name Role Phone Juan Dempsey MD Primary Care Provider [phone] Encounter Details Date Type Department Care Team (Latest Contact Info) Description 10/01/2023 Travel Social History Tobacco Use Types Packs/Day [...] place to sleep or slept in a custodial (including now)? No 07/09/2021 Sex and Gender Information Value Date Recorded Sex Assigned at Male 05/23/2021 10:26 AM EST Gender Identity Not on file Sexual Orientation Not on file documented as of this encounter Plan of Treatment Upcoming Encounters Date Type Department Care Team (Late st Contact Info) Description 02/16/2024 9:15 AM EDT Laboratory Appointment Lab at [facility] Hematology Oncology [address] [place] [address] 02/16/2024 10:20 AM EDT Hospital [place] [phone] Mitali Griffiths APRN [facility] [place] [address] 02/16/2024 1:30 PM EDT Office Visit Hematology [place] [address] Albino Bartholomew MD [facility] [place] [address] 04/17/2024 10:00 AM EST Office Visit Dermatology at [facility] [address] [place] [address] Oli Winter MD [address] [facility] [place] [address] documented as of this encounter Visit Diagnoses Not on filedocumented in this encounter Care Teams Mail Service Coordinator Relationship Specialty Start Date End Date Juan Dempsey MD [address] [place] [address] PCP - General Emergency Medicine 08/20/21 documented as of this encounter
--- OUTSIDE RECORDS SUMMARY | 2024-02-03 16:51 | XMS_ITS | Encounter Summary ---
Author Organization [facility] Address [facility] [place] [address] Care Team Providers Care Business Librarian Name Role Phone Juan Dempsey MD Primary Care Provider [phone] Encounter Details Date Type Department Care Team (Late st Contact Info) Description 08/26/2023 Telephone [place]ematology [place] [address] Daxa Arriola RN Social History [...] Telephone Encounter - Daxa Arriola RN - 08/26/2023 8:49 AM EDT Message received from clinical unit secretary: Faxed request for refill of levothyroxine 75mcg(drug name and dose) received from [facility], fax # [phone]. Additional pertinent information: n/a Review of chart suggests it is an appropriate refill. Order pended and routed to Kelin Carlos APRN and Albino Bartholomew MD for approval. documented in this encounter Plan of Treatment Upcoming Encounters Date Type Department Care Team (Late st Contact Info) Description 02/16/2024 9:15 AM EDT Laboratory Appointment Lab at [facility] Hematology Oncology [address] [place] [address] 02/16/2024 10:20 AM EDT Hospital [place] [address] Mitali Griffiths APRN [facility] [place] [address] 02/16/2024 1:30 PM EDT Office Visit [place]ology [place] [address] Albino Bartholomew MD [facility] DR [place]EMATOLOG[place] [address] 04/17/2024 10:00 AM EST Office Visit Dermatology at [facility] [address] [place] [address] Oli Winter MD [address] [facility] [place] [address] documented as of this encounter Visit Diagnoses Not on filedocumented in this encounter Care Teams Business Librarian Relationship Specialty Start Date End Date Juan Dempsey MD [address] [place] [address] PCP - General Emergency Medicine 08/20/21 documented as of this encounter
--- OUTSIDE RECORDS SUMMARY | 2024-02-03 16:51 | XMS_ITS | Encounter Summary ---
Author Organization [facility] Address [facility] [place] [address] Care Team Providers Care Claim Adjuster Name Role Phone Juan Dempsey MD Primary Care Provider [phone] Encounter Details Date Type Department Care Team (Latest Contact Info) Description 11/22/2023 Specialty [place] [phone] Marci Angel, LINER MACHINE OPERATOR HELPER Refill Coordination - 28 day recurrence (cabozantinib [...] as of this encounter Progress Notes * Marci Angel CPHT - 11/22/2023 8:35 AM EDT Clinical Management Plan: Refill Specialty Pharmacy Consultation; Marci Angel CPHT Comprehensive Medication Management (CMM) Mr. Cristofer [...] Standard Peanut Medication Reconciliation Discrepancies (compared to [facility] med list) No Review Flowsheet 11/22/2023 8:36 AM Assessment What is the name of the specialty medication you are refilling? Cabometyx Are you taking any new medications? No Any new medical conditions? No Any new allergies? No Any new side effects that are bothersome? No Any missed doses since your last fill? 0 How many doses do you have remaining on hand? 1 Would you like a pharmacist to reach out to you to answer any questions? No What date will you need this fill by? 11/23/2023 Adherence: Any missed doses? No Patient understands no changes to current drug regimen were made. Marci Angel CPHT 11/22/23 8:38 AM documented in this encounter Plan of Treatment Upcoming Encounters Date Type Department Care Team (Late st Contact Info) Description 02/16/2024 9:15 AM EDT Laboratory Appointment Lab at [facility] Hematology Oncology [address] [place] [address] 02/16/2024 10:20 AM EDT Hospital [place] [phone] Mitali Griffiths APRN [facility] DR [place] [address] 02/16/2024 1:30 PM EDT Office Visit [place]ology [place] [address] Albino Bartholomew MD [facility] [address] [place] [address] 04/17/2024 10:00 AM EST Office Visit Dermatology at [facility] [address] [place] [address] Oli Winter MD [address] [facility] [place] [address] documented as of this encounter Visit Diagnoses Not on filedocumented in this encounter Care Teams Claim Adjuster Relationship Specialty Start Date End Date Juan Dempsey MD [address] [place] [address] PCP - General Emergency Medicine 08/20/21 documented as of this encounter
--- OUTSIDE RECORDS SUMMARY | 2024-02-03 16:51 | XMS_ITS | Encounter Summary ---
Author Organization [facility] Address [facility] [place] [address] Care Team Providers Care Otr Truck Driver Name Role Phone Juan Dempsey MD Primary Care Provider [phone] Encounter Details Date Type Department Care Team (Late st Contact Info) Description 07/05/2023 Telephone [place]ology [place] [address] Daxa Arriola RN Social History [...] place to sleep or slept in a nursing home (including now)? No 07/09/2021 Sex and Gender Information Value Date Recorded Sex Assigned at Male 05/23/2021 10:26 AM EST Gender Identity Not on file Sexual Orientation Not on file documented as of this encounter Miscellaneous Notes * Telephone Encounter - Daxa Arriola RN - 07/05/2023 8:34 AM EST Message received: Silver Rodriguez. We last dispensed Cristofer's cabozantinib on 05/24/2023. We saw the the message he reported about not feeling well on 06/10 and holding it for a couple days, but we have not beenable to contact him since then (3 attempts). Any idea if he continued to hold? By the calendar, he would have needed the refill about now. Thank you. Stanley Prakash Call placed to pt to discuss above. Pt states that he is taking cabozantinib 5-6 days on and 2 daysoff, had a couple of week long breaks. Needs a refill, 10 days remaining. Going to [place] for 2 weeks in August, wants to make sure he has enough. Discussed planning ahead if he will be out to either get a supply early or have pharmacy deliver to pt in [place]. Pharmacy updated and requested refill on pt's behalf. documented in this encounter Plan of Treatment Upcoming Encounters Date Type Department Care Team (Late st Contact Info) Description 02/16/2024 9:15 AM EDT Laboratory Appointment Lab at [facility] Hematology Oncology [address] [place] [address] 02/16/2024 10:20 AM EDT Hospital [place] [phone] Mitali Griffiths APRN [facility] DR [place] [address] 02/16/2024 1:30 PM EDT Office Visit Hematology and Oncology at [place] [phone] Albino Bartholomew MD [facility] DR [place] [address] 04/17/2024 10:00 AM EST Office Visit Dermatology at [facility] [address] [place] [address] Oli Winter MD [address] [facility] [place] [address] documented as of this encounter Visit Diagnoses Not on filedocumented in this encounter Care Teams Otr Truck Driver Relationship Specialty Start Date End Date Juan Dempsey MD [address] [place] [address] PCP - General Emergency Medicine 08/20/21 documented as of this encounter
--- OUTSIDE RECORDS SUMMARY | 2024-02-03 16:51 | XMS_ITS | Encounter Summary ---
Author Organization [facility] Address [facility] [place] [address] Care Team Providers Care Structural Steel Worker Helper Name Role Phone Jaun Dempsey MD Primary Care Provider [phone] Encounter Details Date Type Department Care Team (Latest Contact Info) Description 10/08/2023 Travel Social History Tobacco Use Types Packs/Day [...] AM EDT Laboratory Appointment Lab at [facility] Hematology Oncology [address] [place] [address] 02/16/2024 10:20 AM EDT Hospital [place] [phone] Mitali Griffiths APRN [facility] DR HEMATOLOGY [place] [address] 02/16/2024 1:30 PM EDT Office Visit Hematology [place] [address] Albino Bartholomew MD [facility] DR HEMATOLOGY [place] [address] 04/17/2024 10:00 AM EST Office Visit Dermatology at [facility] [address] [place] [address] Oli Winter MD [address] [facility] [place] [address] documented as of this encounter Visit Diagnoses Not on filedocumented in this encounter Care Teams Structural Steel Worker Helper Relationship Specialty Start Date End Date Juan Dempsey MD [address] [place] [address] PCP - General Emergency Medicine 08/20/21 documented as of this encounter
--- OUTSIDE RECORDS SUMMARY | 2024-02-03 16:51 | XMS_ITS | Encounter Summary ---
Author Organization [facility] Address [facility] [place] [address] Care Team Providers Care Thread Roller Name Role Phone Juan Dempsey MD Primary Care Provider [phone] Encounter Details Date Type Department Care Team (Latest Contact Info) Description 12/01/2023 Travel Social History Tobacco Use Types Packs/Day [...] [facility] [place] [facility] [place] [address] [place] [address] 02/16/2024 10:20 AM EDT Hospital [place] [phone] Mitali Griffiths APRN [facility] [place] [address] 02/16/2024 1:30 PM EDT Office Visit Hematology [place] [address] Albino Bartholomew MD [facility] [place] [address] 04/17/2024 10:00 AM EST Office Visit Dermatology at [facility] [address] [place] [address] Oli Winter MD [address] [facility] [place] [address] documented as of this encounter Visit Diagnoses Not on filedocumented in this encounter Care Teams Thread Roller Relationship Specialty Start Date End Date Juan Dempsey MD [address] [place] [address] PCP - General Emergency Medicine 08/20/21 documented as of this encounter
--- OUTSIDE RECORDS SUMMARY | 2024-02-03 16:51 | XMS_ITS | Encounter Summary ---
Author Organization [facility] Address [facility] Michael [facility] [place] [address] Care Team Providers Care Alumnae Secretary Name Role Phone Juan Dempsey MD Primary Care Provider [phone] Reason for Visit * Reason Comments Follow-up Encounter Details Date Type Department Care Team (Late st Contact Info) Description 10/08/2023 3:30 PM EDT Office Visit Hematology [place] [address] Albino Bartholomew MD [facility] [address] [place] [address] Metastatic 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, unspecified laterality (Primary Dx); High risk medication use; Multiple lung nodules on CT; Abnormal thyroid function test Social History Tobacco Use Types Packs/Day Years [...] Sign Reading Time Taken Comments Blood Pressure 143/79 10/08/2023 3:27 PM EDT Pulse 61 10/08/2023 3:27 PM EDT Temperature 36.3 ??C (97.3 ??F) 10/08/2023 3:27 PM ED T Respiratory Rate 18 10/08/2023 3:27 PM EDT Oxygen Saturation 100% 10/08/2023 3:27 PM EDT Inhaled Oxygen Concentration - - Weight 99.9 kg (220 lb 3.8 oz) 10/08/2023 3:27 P M EDT Height 174.8 cm (5' 8.82) 10/08/2023 3:27 PM ED T Body Mass Index 32.69 10/08/2023 3:27 PM EDT documented in this encounter Progress Notes * Albino Bartholomew MD - 10/08/2023 3:30 PM EDT Images from the original note were not included. [facility] Oncology History of Present Illness: Mr. Tenorio is a 68 y.o. man [...] and underwent L radical nephrectomy on 06/23/21. Interval History: Raymundo Tenorio is in clinic today for follow-up on metastatic renal cell carcinoma, restaging CT scan and Cabometyx toxicity check. He developed skin rash and skin itching about amonth ago which was treated with hydroxyzine and steroid cream with improvement in the rash and itching. Today he feels well. Complains on mild fatigue, no mouth sores, dry scalp. No mouth sores/oral symptoms, Good appetite, weight is stable. ROS otherwise negative. Patient Active Problem List Diagnosis Code Renal mass N28.89 Renal cell carcinoma C64.9 Medication management Z79.899 PMH, PSH, and current medications reviewed, as documented in the electronic medical record. Current Outpatient Medications Medication Instructions acetaminophen (TYLENOL) 650-975 mg, Oral, EVERY 6 HOURS PRN amLODIPine (Norvasc) 10 mg Tablet TAKE ONE TABLET BY MOUTH EVERY DAY FOR BLOOD PRESSURE cabozantinib (Cabometyx) 20 mg tablet Take daily 5 days/week, then hold for 2 days/week. Take on anempty stomach. Call clinic before starting medication. camphor-menthoL (Sarna) Lotion Topical (Top), PRN chlorthalidone (HYGROTON) 25 mg, Oral, DAILY diphenhydrAMINE (BENADRYL) 25 mg, Oral, EVERY 6 HOURS PRN, For seasonal allergies Eliquis 5 mg, Oral, 2 TIMES DAILY hydrOXYzine (ATARAX) 25 mg, Oral, 3 TIMES DAILY PRN levothyroxine (SYNTHROID) 75 mcg, Oral, DAILY losartan (COZAAR) 100 mg, Oral, DAILY meclizine (ANTIVERT) 25 mg, Oral, 3 TIMES DAILY PRN potassium chloride ER (Klor-Con M) 10 mEq ER micro-encapsulated crystal tablet 10 mEq, Oral, 2 TIMES DAILY triamcinolone (Kenalog) 0.1 % Cream Topical (Top), 2 TIMES DAILY PRN, Apply to the most itchy/bothersome areas twice daily as needed. 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 Pt alert and oriented, no audible distress, clear speech. Lab results: Recent Results (from the past 24 hour(s)) TSH Result Value Ref Range TSH 3.50 0.27 - 4.20 mcIU/mL T4, free Result Value Ref Range Free T4 1.41 0.93 - 1.70 ng/dL Hemogram Result Value Ref Range WBC 7.7 4.0 - 9.5 x10(3)/mcL RBC 4.70 4.58 - 5.54 x10(6)/mcL Hemoglobin 14.4 13.7 - 16.5 g/dL Hematocrit 43.6 40.5 - 48.5 % MCV 92.8 82.9 - 93.1 fL MCH 30.6 27.5 - 32.1 pg MCHC 33.0 32.0 - 35.7 g/dL Platelets 186 145 - 357 x10(3)/mcL RDWSD 49.9 (H) 36.0 - 45.0 fL RDWCV 14.6 (H) 11.4 - 13.8 % MPV 9.5 7.6 - 12.9 fL nRBC % Auto 0.0 % nRBC Abs Auto 0.000 0.000 - 0.000 x10(3)/mcL Differential, Automated Result Value Ref Range Neutrophils % 63.2 % Neutr Abs (ANC) 4.83 1.70 - 6.10 x10(3)/mcL Lymphocytes % 22.7 % Lymphocytes Abs 1.7 0.9 - 3.2 x10(3)/mcL Monocytes % 7.0 % Monocyte Abs 0.5 0.3 - 0.9 x10(3)/mcL Eosinophils % 5.7 % Eosinophils Abs 0.4 0.0 - 0.4 x10(3)/mcL Basophils % 1.0 % Basophils Abs 0.1 0.0 - 0.1 x10(3)/mcL Immature Gran % 0.40 % Roro Gran Abs 0.03 0.00 - 0.04 x10(3)/mcL POCT Creatinine Result Value Ref Range Creatinine, POC 1.5 0.8 - 1.5 mg/dL POC Estimated GFR 51 (A) 60 Pathology: No new pathology to review 02/04/22 DIAGNOSIS [...] (pT): pT3a Regional Lymph Nodes (pN): pN1 Imagin10/08/23 CT CAP: IMPRESSION Interval increase in the size of multiple small, pleural-based serpiginous and lobular pulmonary nodules. This appearance is concerning for metastatic disease in given history of renal cell carcinoma and interval growth. Atypical infection, such as Mycobacterium avium complex may have similar appearance. A biopsy should be considered. 07/07/2023 CT chest abdomen pelvis: IMPRESSION 1. Bilateral pulmonary nodules are increasing in size, concerning for progressive metastatic disease. 2. No definitive sites of metastatic disease are identified within the abdomen or pelvis status post left nephrectomy. 3. Stable size of the hyperdense exophytic lesion of the right upper pole kidney. 4. Stable, small cyst anterior pancreatic neck without ductal dilation. Continued attention on follow-up. 03/16/23 CT CAP: MPRESSION 1. Right upper and left lower lobe pulmonary nodules suspicious for metastases unchanged. Slight interval enlargement of a pleural-based left lower lobe nodule which is indeterminate; intrapulmonary lymph node versus enlarging metastasis. Close attention on follow-up studies is advised. 2. Stable size of a hyperdense right upper pole renal lesion which appeared cystic on the comparison MRI; findings may reflect hemorrhagic cyst currently. 3. Cystic lesion in the body of the pancreas is stable over a one year interval. This may be a cyst, pseudocyst, or sidebranch IPMN. One-year follow-up MRI is recommended versus attention on planned follow-up studies. 11/04/22 CT CAP: IMPRESSION 1. No local recurrence of renal cell carcinoma. No lymphadenopathy. 2. Unchanged 1.2 cm left lung metastasis and 1.0 cm suspected right lung metastasis. 3. Unchanged pancreatic body cystic lesion, 1.0 cm. Attention on follow-up studies recommended. 08/12/22 abdominal MRI: IMPRESSION 1. Lesion of concern in the upper pole right kidney is a small hemorrhagic cyst. 2. No suspicious or enhancing renal lesions. 3. Stable left nephrectomy surgical bed. No evidence of local recurrence. 06/26/22 CT CAP: IMPRESSION 1. Slight interval increase in size of pleural-based right pulmonary nodule, as above. Unchanged appearance of the right upper and left lower lobe pulmonary nodules. 2. Interval decrease in size, and increase in density of a partially exophytic focus in the right kidney. Concern for possible solid mass arising at the site of prior cyst, versus blood products. Consider supplementary ultrasound for further characterization. 02/06/22 abdominal MRI: IMPRESSION Stable exam. Stable post LEFT nephrectomy surgical bed, without complication or local tumor recurrence. No evidence of abdominal metastasis. 02/05/22 brain MRI: IMPRESSION No evidence of metastatic neoplasm. 01/16/22 CT chest: IMPRESSION New and enlarging pulmonary nodules as described above, concerning for metastatic disease 11/07/21 MRI Abdomen: IMPRESSION No evidence of local recurrence or metastatic disease in the abdomen and pelvis. 10/20/21 CXR ([facility]): 10/16/21: IMPRESSION 1. Unexpected finding: New 6 mm anterior upper lobe pulmonary nodule. 2. New tree-in-bud centrilobular nodularity right middle and lower lobes in keeping with an infectious or inflammatory process. Follow-up to ensure complete resolution suggested. 3. Stable exophytic 14 mm right renal cyst. 4. Interval retraction of left retroperitoneal inflammatory changes. 07/20/21 CT C/A/P: IMPRESSION 1. Post LEFT nephrectomy since the previous study. Nonspecific small nodular densities seen in postoperative bed along with a mild degree of mesenteric stranding. Recommend continued follow-up. No evidence of distant metastasis. 05/29/21 CT chest wo contrast 1. Solitary 3 mm nodule in the apex of the right lung. 2. No suspicious lytic lesions in the bones. 05/20/21 CT ABD/Pelvis Assessment: Raymundo Tenorio is a 68 y.o. [...] taper. Pt prefers to get labs at [facility]. We'll send orders and I'll ask our water resource engineering specialist to f/u on results. Advised pt to [...] show a pulmonary nodule. Recommend f/u in Sept w/chest CT. Per communication w/Dr. Hou, we [...] Cabometyx with minimal side effects. Follows with archery instructor Dr. Pringle, with plans to taper him [...] us interim with any questions or concerns. # Mild hypokalemia: recommend resuming K supplement 10 mEq BID. New script sent to [facility]. Will re-check CMP next Wednesday at [facility]. Will ask water resource engineering specialist to f/u on results. # Sl worsened renal function - suspect some level of pre-renal/dehydration. Advised to increase fluid intake - water, electrolyte drinks, etc. Will re-check CMP as noted above. #L LE DVT: continue Eliquis per PCP. 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 #Genetic testing: [facility] did not reveal any mutations. Mr. Tenorio asked appropriate questions and verbalized good understanding of and agreement with the plan. I encouraged him to call anytime with questions or concerns and he agreed. Plan: - levothyroxine 75 mcg a day -Continue Cabometyx 20 mg a day, 5 days on 2 days off -Next visit with CBC, CMP, TSH, free T4 in 2 months Mr. Tenorio asked appropriate questions and verbalized good understanding of and agreement with the plan. I encouraged him to call anytime with questions or concerns and he agreed. ____ documented in this encounter Plan of Treatment Upcoming Encounters Date Type Department Care Team (Late st Contact Info) Description 02/16/2024 9:15 AM EDT Laboratory Appointment Lab at [facility] Hematology Oncology [address] [place] [address] 02/16/2024 10:20 AM EDT Hospital Encounter CT Scan at [place] [phone] Mitali Griffiths APRN [facility] [address] [place] [address] 02/16/2024 1:30 PM EDT Office Visit Hematology and Oncology at [place] [phone] Albino Bartholomew MD [facility] [address] [place] [address] 04/17/2024 10:00 AM EST Office Visit Dermatology at [facility] [address] [place] [address] Oli Winter MD [address] [facility] [place] [address] Scheduled Orders Name Type Priority Associated Diagnoses Orde r Schedule CBC (with Diff) Lab Routine Metastatic 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, unspecified laterality As Needed for 4 Occurrences starting 10/08/2023 until 10/07/2024, 1 completed Comprehensive metabolic panel (non-fasting) Lab Routine Metastatic 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, unspecified laterality As Needed for 4 Occurrences starting 10/08/2023 until 10/07/2024, 1 completed TSH Lab Routine Metastatic 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, unspecified laterality High risk medication use Abnormal thyroid function test As Needed for 4 Occurrences starting 10/08/2023 until 10/07/2024, 1 completed T4, free Lab Routine Metastatic 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, unspecified laterality High risk medication use Abnormal thyroid function test As Needed for 4 Occurrences starting 10/08/2023 until 10/07/2024, 1 completed documented as of this encounter Results * T4, free (12/08/2023 11:56 AM EDT) Free T4 1.58 0.93 - 1.70 ng/dL 12/08/2023 12:[address] [facility] Blood VENOUS BLOOD SPECIMEN / Unknown Venipuncture / Unknown 12/08/2023 11:56 AM EDT 12/08/2023 11:56 AM EDT Albino Bartholomew MD CHEMISTRY ORDERABLES [facility] [place] [address] * TSH (12/08/2023 11:56 AM EDT) Thyroid Stimulating Hormone 3.07 0.27 - 4.20 mcIU/mL 12/08/2023 12:[address] [facility] Blood VENOUS BLOOD SPECIMEN / Unknown Venipuncture / Unknown 12/08/2023 11:56 AM EDT 12/08/2023 11:56 AM EDT Albino Bartholomew MD CHEMISTRY ORDERABLES [facility] [place] [address] * (ABNORMAL) Comprehensive metabolic panel (12/08/2023 11:56 AM EDT) Glucose 80 65 - 199 mg/dL 12/08/2023 12:43 PM [facility] Comment:Glucose Concentratio n >=200 mg/dL plus symptoms is consistent with Diabetes Mellitus. Blood Urea Nitrogen 22(H) 10 - 20 mg/dL 12/08/2023 12:43 PM [facility] Creatinine 1.52(H) 0.80 - 1.50 mg/dL 12/08/2023 12:43 PM [facility] Sodium 141 135 - 145 mMol/L 12/08/2023 12:43 PM [facility] Potassium 4.0 3.5 - 5.0 mMol/L 12/08/2023 12:43 PM [facility] Chloride 104 98 - 107 mMol/L 12/08/2023 12:43 PM [facility] Carbon Dioxide 29 22 - 31 mMol/L 12/08/2023 12:43 PM [facility] Anion Gap 8 5 - 15 mMol/L 12/08/2023 12:43 PM [facility] Calcium 9.5 8.5 - 10.5 mg/dL 12/08/2023 12:43 PM [facility] Protein, Total 6.8 6.1 - 8.0 g/dL 12/08/2023 12:43 PM [facility] Albumin 4.0 3.2 - 5.2 g/dL 12/08/2023 12:43 PM [facility] Aspartate Aminotransferase 23 <=39 unit/L 12/08/2023 12:43 PM [facility] Alanine Aminotransferase 29 0 - 55 unit/L 12/08/2023 12:43 PM [facility] Alkaline Phosphatase 153(H) 40 - 130 unit/L 12/08/2023 12:43 PM [facility] Bilirubin, Total 0.3 <=1.3 mg/dL 12/08/2023 12:43 PM [facility] Est Glomerular Filtration Rate - Male 50 mL/min/1. 73 m?? 12/08/2023 12:[address] [facility] Comment: This patient's estimated GFR [...] Fasting Status No 12/08/2023 12:[address] [facility] Blood VENOUS BLOOD SPECIMEN / Unknown Venipuncture / Unknown 12/08/2023 11:56 AM EDT 12/08/2023 11:56 AM EDT Albino Bartholomew MD CHEMISTRY ORDERABLES Performing Organization Address City/State/[facility] Co de Phone Number [facility] [place] [address] * (ABNORMAL) CBC (with Diff) (12/08/2023 11:56 AM EDT) White Blood Cell 8.63 4.00 - 9.50 x10(3)/mc L 12/08/2023 12:[address] [facility] Red Blood Cell 4.97 4.58 - 5.54 x10(6)/mc L 12/08/2023 12:[address] [facility] Hemoglobin 14.6 13.7 - 16.5 g/dL 12/08/2023 12:[address] [facility] Hematocrit 45.3 40.5 - 48.5 % 12/08/2023 12:11 [facility] Mean Cell Volume 91.1 82.9 - 93.1 fL 12/08/2023 12:11 PM [facility] Mean Cell Hemoglobin 29.4 27.5 - 32.1 pg 12/08/2023 12:11 PM [facility] Mean Cell Hemoglobin Concentration 32.2 32.0 - 35.7 g/dL 12/08/2023 12:11 PM [facility] Platelet 202 145 - 357 x10(3)/mc L 12/08/2023 12:11 PM [facility] Mean Platelet Volume 9.7 7.6 - 12.9 fL 12/08/2023 12:11 PM [facility] RDW Standard Deviation 48.9(H) 36.0 - 45.0 fL 12/08/2023 12:11 PM [facility] RDW coefficient of variation 14.7(H) 11.4 - 13.8 % 12/08/2023 12:11 PM [facility] NRBC% auto 0.0 % 12/08/2023 12:11 PM [facility] NRBC Absolute 0.00 0.00 - 0.00 x10(3)/mc L 12/08/2023 12:11 PM [facility] Neutrophil % 69.0 % 12/08/2023 12:11 PM [facility] Neutrophil Absolute (ANC) - Automated 5.96 1.70 - 6.10 x10(3)/mc L 12/08/2023 12:11 PM [facility] Lymph % 20.5 % 12/08/2023 12:11 PM [facility] Lymph Absolute 1.77 0.90 - 3.20 x10(3)/mc L 12/08/2023 12:11 PM [facility] Monocyte % 5.6 % 12/08/2023 12:11 PM [facility] Monocyte Absolute 0.48 0.30 - 0.90 x10(3)/mc L 12/08/2023 12:11 PM [facility] Eos % 3.2 % 12/08/2023 12:11 PM [facility] Eos Absolute 0.28 0.00 - 0.40 x10(3)/mc L 12/08/2023 12:[address] [facility] Basophil % 1.2 % 12/08/2023 12:[address] [facility] Baso Absolute 0.10 0.00 - 0.10 x10(3)/mc L 12/08/2023 12:[address] [facility] Immature Gran % 0.5 % 12:[address] [facility] Immature Gran Absolute 0.04 0.00 - 0.04 x10(3)/mc L 12/08/2023 12:[address] [facility] Blood VENOUS BLOOD SPECIMEN / Unknown Venipuncture / Unknown 12/08/2023 11:56 AM EDT 12/08/2023 11:56 AM EDT Albino Bartholomew MD HEMATOLOGY ORDERABLE S [facility] [place] [address] documented in this encounter Visit Diagnoses Diagnosis Metastatic 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, unspecified laterality- Primary High risk medication use Encounter for long-term (current) use of other medications Multiple lung nodules on CT Abnormal thyroid function test Nonspecific abnormal results of thyroid function study documented in this encounter Care Teams Alumnae Secretary Relationship Specialty Start Date End Date Juan Dempsey MD [address] [place] [address] PCP - General Emergency Medicine 08/20/21 documented as of this encounter
--- OUTSIDE RECORDS SUMMARY | 2024-02-03 16:51 | XMS_ITS | Encounter Summary ---
Author Organization [facility] Address [facility] [place] [address] Care Team Providers Care Professor Of Spanish Name Role Phone Juan Dempsey MD Primary Care Provider Reason for Visit * Reason Comments Follow-up Encounter Details Date Type Department Care Team (Late st Contact Info) Description 07/07/2023 2:00 PM EST Office Visit Hematology [place] [phone] Albino Bartholomew MD [facility] [address] [place] [address] Metastatic 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, unspecified laterality; High risk medication use; Abnormal thyroid function test; Multiple lung nodules on CT; Elevated LFTs Social History Tobacco Use Types Packs/Day Years [...] Sign Reading Time Taken Comments Blood Pressure 121/69 07/07/2023 2:29 PM EST Pulse 69 07/07/2023 2:29 PM EST Temperature 36.8 ??C (98.2 ??F) 07/07/2023 2:29 PM ES T Respiratory Rate 18 07/07/2023 2:29 PM EST Oxygen Saturation 97% 07/07/2023 2:29 PM EST Inhaled Oxygen Concentration - - Weight 98.9 kg (218 lb 0.6 oz) 07/07/2023 2:29 P M EST Height 177.8 cm (5' 10) 07/07/2023 2:29 PM EST Body Mass Index 31.28 07/07/2023 2:29 PM EST documented in this encounter Progress Notes * Albino Bartholomew MD - 07/07/2023 2:00 PM EST Images from the original note were not included. [facility] History of Present Illness: Mr. Tenorio [...] radical nephrectomy on 06/23/21. Interval History: Raymundo is in clinic for f/u on metastatic renal cell carcinoma, discussion on restaging CT scan and cabozantinib toxicity check. He's accompanied by his , Emily. He did not feel well with GI symptoms particularly epigastric pain, nausea and mid of May and held Cabometyx for several days. Latus he is switched to schedule V days on 2 days of which worked well for him. Numbness in lower extremities minimal. Denies diarrhea. No nausea or vomiting. No epigastric pain. Today hefeels well. Patient Active Problem List Diagnosis Code Renal mass N28.89 Renal cell carcinoma C64.9 Medication management Z79.899 PMH, PSH, and current medications reviewed, as documented in the electronic medical record. Current Outpatient Medications Medication Instructions acetaminophen (TYLENOL) 650-975 mg, Oral, EVERY 6 HOURS PRN amLODIPine (Norvasc) 10 mg Tablet TAKE ONE TABLET BY MOUTH EVERY DAY FOR BLOOD PRESSURE cabozantinib (CABOMETYX) 20 mg, Oral, DAILY, Take on an empty stomach. Call clinic before starting medication. chlorthalidone (HYGROTEN) 25 mg, Oral, DAILY diphenhydrAMINE (BENADRYL) 25 mg, Oral, EVERY 6 HOURS PRN, For seasonal allergies Eliquis 5 mg, Oral, 2 TIMES DAILY levothyroxine (SYNTHROID) 75 mcg, Oral, DAILY losartan (COZAAR) 100 mg, Oral, DAILY meclizine (ANTIVERT) 25 mg, Oral, 3 TIMES DAILY PRN potassium chloride SA (Klor-con) 10 mEq Tab Sust.Rel. 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 Wt Readings from Last 3 Encounters: 07/07/23 98.9 kg (218 lb 0.6 oz) 06/07/23 95.3 kg (210 lb) 06/02/23 95.6 kg (210 lb 12.2 oz) ECOG PS: 0 General: NAD, pleasant, well-appearing Head: NCAT Eyes: Non-injected, anicteric. Neck: Normal ROM, supple. Cardiovascular: RRR, no murmur. Resp: Effort normal. No respiratory distress. CTAB. Abdominal: Soft, NT, ND, no appreciable masses, organomegaly or ascites. +umbilical hernia. Back: No abnormal curvature, spinal or CVA tenderness. Skin: Skin is warm and dry. No rash or lesions noted on limited exam. No pallor. Musculoskeletal: Normal range of motion, ambulatory without assist. Neurological: Alert & oriented, no focal deficits. Heme: No cervical or supraclavicular adenopathy. Psych: Normal mood and affect. Lab results: Recent Results (from the past 24 hour(s)) Comprehensive metabolic panel (non-fasting) Result Value Ref Range Glucose Lvl 164 65 - 199 mg/dL BUN 19 10 - 20 mg/dL Creatinine 1.60 (H) 0.80 - 1.50 mg/dL Sodium 141 135 - 145 mmol/L Potassium 3.7 3.5 - 5.0 mmol/L Chloride 104 98 - 107 mmol/L CO2 28 22 - 31 mmol/L Anion Gap 9 5 - 15 mmol/L Calcium 9.1 8.5 - 10.5 mg/dL Total Protein 6.6 6.1 - 8.0 g/dL Albumin 4.0 3.2 - 5.2 g/dL AST 21 0 - 39 unit/L ALT 31 0 - 55 unit/L Alk Phos 149 (H) 40 - 130 unit/L Total Bilirubin 0.4 0.2 - 1.3 mg/dL Estimated GFR 47 (L) >=60 mL/min/1.73 m?? TSH Result Value Ref Range TSH 3.28 0.27 - 4.20 mcIU/mL T4, free Result Value Ref Range Free T4 1.47 0.93 - 1.70 ng/dL Hemogram Result Value Ref Range WBC 8.7 4.0 - 9.5 x10(3)/mcL RBC 4.40 (L) 4.58 - 5.54 x10(6)/mcL Hemoglobin 13.6 (L) 13.7 - 16.5 g/dL Hematocrit 40.4 (L) 40.5 - 48.5 % MCV 91.8 82.9 - 93.1 fL MCH 30.9 27.5 - 32.1 pg MCHC 33.7 32.0 - 35.7 g/dL Platelets 201 145 - 357 x10(3)/mcL RDWSD 48.4 (H) 36.0 - 45.0 fL RDWCV 14.6 (H) 11.4 - 13.8 % MPV 9.5 7.6 - 12.9 fL nRBC % Auto 0.0 % nRBC Abs Auto 0.000 0.000 - 0.000 x10(3)/mcL Differential, Automated Result Value Ref Range Neutrophils % 71.9 % Neutr Abs (ANC) 6.26 (H) 1.70 - 6.10 x10(3)/mcL Lymphocytes % 18.5 % Lymphocytes Abs 1.6 0.9 - 3.2 x10(3)/mcL Monocytes % 3.8 % Monocyte Abs 0.3 0.3 - 0.9 x10(3)/mcL Eosinophils % 4.6 % Eosinophils Abs 0.4 0.0 - 0.4 x10(3)/mcL Basophils % 1.0 % Basophils Abs 0.1 0.0 - 0.1 x10(3)/mcL Immature Gran % 0.20 % Roro Gran Abs 0.02 0.00 - 0.04 x10(3)/mcL Pathology: No new pathology to review 02/04/22 [...] (pT): pT3a Regional Lymph Nodes (pN): pN1 Imagin07/07/2023 CT chest abdomen pelvis: Personally reviewed, official report is pending. 03/16/23 CT CAP: MPRESSION 1. Right upper [...] in the abdomen and pelvis. 10/20/21 CXR ([facility]): 10/16/21: IMPRESSION 1. Unexpected finding: New 6 [...] taper. Pt prefers to get labs at [facility]. We'll send orders and I'll ask our card writer hand to f/u on results. Advised pt to [...] He's scheduled for routine f/u with Dr. Winter/Derm as well. 10/08/21 he is first day [...] stat referral to GI for official consult. Raymunod agrees with the plan. We will re-check [...] Cabometyx with minimal side effects. Follows with roadway technician Dr. Pringle, with plans to taper him [...] back in 6 weeks with blood work. #L LE DVT: continue Eliquis per PCP. 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 #Genetic testing: [facility] did not reveal any mutations. Mr. Tenorio asked appropriate questions and verbalized good understanding of and agreement with the plan. I encouraged him to call anytime with questions or concerns and he agreed. Plan: - levothyroxine to 75 mcg a day -Continue Cabometyx 20 mg a day, 5 days on 2 days off -Next visit with CBC, CMP, TSH, free T4 in 6 weeks Mr. Tenorio asked appropriate questions and verbalized [...] [facility] Hematology Oncology [address] [place] [address] 02/16/2024 10:20 AM EDT Hospital [place] [phone] Mitali Grififths APRN [facility] [address] [place] [address] 02/16/2024 1:30 PM EDT Office Visit Hematology [place] [address] Albino Bartholomew MD [facility] DR [place] [address] 04/17/2024 10:00 AM EST Office Visit Dermatology at [facility] [address] [place] [address] Oli Winter MD [address] [facility] [place] [address] documented as of this encounter Visit Diagnoses Diagnosis Metastatic 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, unspecified laterality High risk medication use Encounter for long-term (current) use of other medications Abnormal thyroid function test Nonspecific abnormal results of thyroid function study Multiple lung nodules on CT Elevated LFTs Other abnormal blood chemistry documented in this encounter Care Teams Professor Of Spanish Relationship Specialty Start Date End Date Juan Dempsey MD [address] [place] [address] PCP - General Emergency Medicine 08/20/21 documented as of this encounter
--- OUTSIDE RECORDS SUMMARY | 2024-02-03 16:51 | XMS_ITS | Encounter Summary ---
Author Organization [facility] Address [facility] [place] [address] Care Team Providers Care Warp Tying Machine Knotter Name Role Phone Juan Dempsey MD Primary Care Provider [phone] Encounter Details Date Type Department Care Team (Latest Contact Info) Description 07/07/2023 Travel Social History Tobacco Use Types Packs/Day [...] AM EDT Laboratory Appointment Lab at [facility] Hematology Oncology [address] [place] [address] 02/16/2024 10:20 AM EDT Hospital [place] [phone] Mitali Griffiths APRN [facility] [address] [place] [address] 02/16/2024 1:30 PM EDT Office Visit [place]ology [place] [address] Albino Bartholomew MD [facility] [place] [address] 04/17/2024 10:00 AM EST Office Visit Dermatology at [facility] [address] [place] [address] Oli Winter MD [address] [facility] [place] [address] documented as of this encounter Visit Diagnoses Not on filedocumented in this encounter Care Teams Warp Tying Machine Knotter Relationship Specialty Start Date End Date Juan Dempsey MD [address] [place] [address] PCP - General Emergency Medicine 08/20/21 documented as of this encounter
--- OUTSIDE RECORDS SUMMARY | 2024-02-03 16:51 | XMS_ITS | Encounter Summary ---
Author Organization [facility] Address [facility] [place] [address] Care Team Providers Care Lace Roller Name Role Phone Juan Dempsey MD Primary Care Provider [phone] Reason for Visit * Reason Comments Medication Refill Encounter Details Date Type Department Care Team (Late st Contact Info) Description 07/07/2023 Specialty [place] [phone] Tru Prakash, [facility] Social History Tobacco Use Types Packs/Day Years [...] to sleep or slept in a senior living (including now)? No 07/09/2021 Sex and Gender Information Value Date Recorded Sex Assigned at Male 05/23/2021 10:26 AM EST Gender Identity Not on file Sexual Orientation Not on file documented as of this encounter Progress Notes * Tru Prakash [facility] - 07/07/2023 8:46 AM EST Clinical Management Plan: Refill Specialty Pharmacy Consultation; Tru Prakash [facility] Comprehensive Medication Management (CMM) Cristofer Tenorio is a 68 y.o. (1955) male who was contacted in regard to a specialty medication refill reminder. The caregiver. Caregiver name: Daxa (RN at Clinic who served as intermediary for this refill) requested a refill of Cristofer's CABOMETYX. A review of the medication therapy was performed. The medication was refilled as scheduled, and all medication related questions and concerns were addressed. The specialty pharmacy staff will follow up with the patient 5-7 days prior to next refill. Was a change made to the Care Plan: yes - Cristofer has had some G.I. side effects and is allowed some flexibility in dosing. So he has held a couple of times in recent weeks / months resulting in a build up of supply and late refill If yes, should the medication be held: defer to provider (he has held when needed) Assessment and Recommendations: Allergies and Drug intolerance: Allergies Allergen Reactions Grass Pollen-Orchardgrass, Standard Peanut Medication Reconciliation Discrepancies (compared to [facility] med list) -none Specialty Pharmacy Refill Questionnaire More data exists 07/07/2023 Refill Questionnaire What is the name of the specialty medication you are refilling? Cabometyx Are you taking any new medications? No Any new medical condition? No Any new allergies? No Any missed doses since your last fill? 5+ Any new side effects that are bothersome? Yes Please explain upset stomach occasionally What date will you need this fill by? 07/14/2023 Adherence: Specialty Med Adherence Patient Demonstrates Understanding of Importance of Adherence: Yes Educational Information or Adherence Tools Provided: No How many doses does patient have remaining at home?: 8 Patient Reported X Missed Doses in the Last Month: 5 If >0, reason for missed doses: instructed by provider to hold or take differently Provider-Estimated Medication Adherence Level: 76-89% Adherence Tools Used: calendar, directed education Adherence Summary: Pt has OK to hold for several days if G.I. side effects emerge, and clinic mentioned possibly using 5 days on / 2 days off if needed. Pt understands no changes to current drug regimen were made at the appointment and that [facility] is providing recommendations (summary located at top of note) for provider review and follow up. Tru Prakash RPH 07/07/23 8:50 AM documented in this encounter Plan of Treatment Upcoming Encounters Date Type Department Care Team (Late st Contact Info) Description 02/16/2024 9:15 AM EDT Laboratory Appointment Lab at [facility] [place] On[place] [address] [place] [address] 02/16/2024 10:20 AM EDT Hospital [place] [phone] Mitali Griffiths APRN [facility] [place] [address] 02/16/2024 1:30 PM EDT Office Visit Hematology [place] [phone] Albino Bartholomew MD [facility] [place] [address] 04/17/2024 10:00 AM EST Office Visit Dermatology at [facility] [address] [place] [address] Oli Winter MD [address] [facility] [place] [address] documented as of this encounter Visit Diagnoses Not on filedocumented in this encounter Care Teams Lace Roller Relationship Specialty Start Date End Date Juan Dempsey MD [address] [place] [address] PCP - General Emergency Medicine 08/20/21 documented as of this encounter
--- OUTSIDE RECORDS SUMMARY | 2024-02-03 16:51 | XMS_ITS | Encounter Summary ---
Author Organization [facility] Address [facility] [place] [address] Care Team Providers Care Pantograph Operator Name Role Phone Juan Dempsey MD Primary Care Provider [phone] Encounter Details Date Type Department Care Team (Latest Contact Info) Description 10/07/2023 Specialty Pharmacy [place] [phone] Marisabel Soto, [facility] Refill Coordination - 28 day recurrence [...] place to sleep or slept in a assisted (including now)? No 07/09/2021 Sex and Gender Information Value Date Recorded Sex Assigned at Male 05/23/2021 10:26 AM EST Gender Identity Not on file Sexual Orientation Not on file documented as of this encounter Progress Notes * Tru Prakash [facility] - 10/07/2023 8:57 AM EDT Images from the original note were not included. Clinical Management Plan: Refill Specialty Pharmacy Consultation; Tru Prakash [facility] Comprehensive Medication Management (CMM) Mr. Cristofer Tenorio is a 68 y.o. (1955) male who was contacted in regard to a specialty medication refill reminder. The patient requested a refill of CABOMETYX. A review of the medication therapy was performed. The medication was refilled as scheduled, and all medication related questions and concerns were addressed. The specialty pharmacy staff will follow up with the patient 5-7 days prior to next refill. Was a change made to the Care Plan: not new, but pt develops rashes which may be related to his pembro per clinic notes. In this case he held his cabometyx for a couple doses. Back on track. If yes, should the medication be held: defer to provider - unclear if the hold was recommended thistime, but in the past, the regimen has been adjusted for side effects, sometimes held, and clinic is aware of these occasional holds. Assessment and Recommendations: Allergies and Drug intolerance: Allergies Allergen Reactions Grass Pollen-Orchardgrass, Standard Peanut Medication Reconciliation Discrepancies (compared to [facility] med list) -none Review Flowsheet 10/07/2023 8:58 AM Assessment What is the name of the specialty medication you are refilling? Cabometyx Are you taking any new medications? No Any new medical conditions? No Any new allergies? No Any missed doses since your last fill? 1-2 Any new side effects that are bothersome? No What date will you need this fill by? 10/12/2023 Medication Therapy Recommendations No medication therapy recommendations to display Pt understands no changes to current drug regimen were made at the appointment and that [facility] is providing recommendations (summary located at top of note) for provider review and follow up. Tru Prakash RPH 10/07/23 11:23 AM documented in this encounter Plan of Treatment Upcoming Encounters Date Type Department Care Team (Late st Contact Info) Description 02/16/2024 9:15 AM EDT Laboratory Appointment Lab at [facility] [place] [place] Hematology Oncology [address] [place] [address] 02/16/2024 10:20 AM EDT Hospital [place] [phone] Mitali Griffiths APRN [facility] DR HEMATOLOGY [place] [address] 02/16/2024 1:30 PM EDT Office Visit Hematology [place] [address] Albino Bartholomew MD [facility] DR HEMATOLOGY [place] [address] 04/17/2024 10:00 AM EST Office Visit Dermatology at [facility] [address] [place] [phone] Oli Winter MD [address] [facility] [place] [place] [address] documented as of this encounter Visit Diagnoses Not on filedocumented in this encounter Care Teams Pantograph Operator Relationship Specialty Start Date End Date Dege, Juan E, MD [address] [place] [address] PCP - General Emergency Medicine 08/20/21 documented as of this encounter
--- OUTSIDE RECORDS SUMMARY | 2024-02-03 16:51 | XMS_ITS | Encounter Summary ---
Author Organization [facility] Address [facility] [place] [address] Care Team Providers Care Oakes Machine Operator Name Role Phone Juan Dempsey MD Primary Care Provider [phone] Reason for Visit * Reason Comments Medication Refill Encounter Details Date Type Department Care Team (Late st Contact Info) Description 08/17/2023 Specialty [place] [address] Sharda Lee, [facility] Social History Tobacco Use Types Packs/Day Years [...] this encounter Progress Notes * Sharda Lee [facility] - 08/17/2023 11:25 AM EDT Clinical Management Plan: Refill Specialty Pharmacy Consultation; Sharda Lee [facility] Comprehensive Medication Management (CMM) Cristofer Oh Anamarilynnaida Mr. Cristofer Tenorio is a 68 y.o. (1955) male who was contacted in regard to a specialty medication refill reminder. The patient requested a refill of Cabometyx. A review of the medication therapy was performed. The medication was refilled as scheduled, and all medication related questions and concerns were addressed. The specialty pharmacy staff will follow up with the patient 5-7 days prior to next refill. Was a change made to the Care Plan: Pt may be taking 5 days on / 2 days off. Will confirm with the clinic and ask for a new script. CRCL = 47ml/min but no medications need adjusting at this time including for Eliquis. Allergies and Drug intolerance: Allergies Allergen Reactions Grass Pollen-Orchardgrass, Standard Peanut Medication Reconciliation Discrepancies (compared to [facility] med list) No Specialty Pharmacy Refill Questionnaire More data exists 08/17/2023 Refill Questionnaire What is the name of the specialty medication you are refilling? Cabometyx Are you taking any new medications? No Any new medical condition? No Any new allergies? No Any new side effects that are bothersome? No What date will you need this fill by? 08/24/2023 Adherence: Any missed doses? No Patient understands no changes to current drug regimen were made. Sharda Lee RPH 08/17/23 11:27 AM documented in this encounter Plan of Treatment Upcoming Encounters Date Type Department Care Team (Late st Contact Info) Description 02/16/2024 9:15 AM EDT Laboratory Appointment Lab at [facility] Hematology Oncology [address] [place] [address] 02/16/2024 10:20 AM EDT Hospital Encounter CT Scan at [place] [phone] Mitali Griffiths APRN [facility] [address] [place] [address] 02/16/2024 1:30 PM EDT Office Visit [place] [address] Albino Bartholomew MD [facility] [address] [place] [address] 04/17/2024 10:00 AM EST Office Visit Dermatology at [facility] [address] [place] [address] Oli Winter MD [address] [facility] [place] [address] documented as of this encounter Visit Diagnoses Not on filedocumented in this encounter Care Teams Oakes Machine Operator Relationship Specialty Start Date End Date Juan Dempsey MD [address] [place] [address] PCP - General Emergency Medicine 08/20/21 documented as of this encounter
--- OUTSIDE RECORDS SUMMARY | 2024-02-03 16:51 | XMS_ITS | Encounter Summary ---
Author Organization [facility] Address [facility] [place] [address] Care Team Providers Care Dishwashing Machine Repairer Name Role Phone Juan Dempsey MD Primary Care Provider [phone] Encounter Details Date Type Department Care Team (Late st Contact Info) Description 08/19/2023 Orders Only [place] [phone] Albino Bartholomew MD [facility] DR HEMATOLOGY [place] [address] Social History Tobacco Use Types Packs/Day Years [...] place to sleep or slept in a residential (including now)? No 07/09/2021 Sex and Gender Information Value Date Recorded Sex Assigned at Male 05/23/2021 10:26 AM EST Gender Identity Not on file Sexual Orientation Not on file documented as of this encounter Plan of Treatment Upcoming Encounters Date Type Department Care Team (Late st Contact Info) Description 02/16/2024 9:15 AM EDT Laboratory Appointment Lab at [facility] Hematology Oncology [address] [place] [address] 02/16/2024 10:20 AM EDT Hospital [place] [address] Mitali Griffiths APRN [facility] DR [place] [address] 02/16/2024 1:30 PM EDT Office Visit Hematology [place] [phone] Albino Bartholomew MD [facility] DR [place] [address] 04/17/2024 10:00 AM EST Office Visit Dermatology at [facility] [address] [place] [address] Oli Winter MD [address] [facility] [place] [address] documented as of this encounter Visit Diagnoses Not on filedocumented in this encounter Care Teams Dishwashing Machine Repairer Relationship Specialty Start Date End Date Juan Dempsey MD [address] [place] [address] PCP - General Emergency Medicine 08/20/21 documented as of this encounter
--- OUTSIDE RECORDS SUMMARY | 2024-02-03 16:51 | XMS_ITS | Encounter Summary ---
Author Organization [facility] Address [facility] [place] [address] Care Team Providers Care Media Promoter Name Role Phone Juan Dempsey MD Primary Care Provider [phone] Encounter Details Date Type Department Care Team (Latest Contact Info) Description 06/02/2023 Travel Social History Tobacco Use Types Packs/Day [...] place to sleep or slept in a longterm (including now)? No 07/09/2021 Sex and Gender Information Value Date Recorded Sex Assigned at Male 05/23/2021 10:26 AM EST Gender Identity Not on file Sexual Orientation Not on file documented as of this encounter Plan of Treatment Upcoming Encounters Date Type Department Care Team (Late st Contact Info) Description 02/16/2024 9:15 AM EDT Laboratory Appointment Lab at [facility] Hematology Oncology [address] [place] [address] 02/16/2024 10:20 AM EDT Hospital [place] [phone] Mitali Griffiths APRN [facility] DR HEMATOLOGY [place] [address] 02/16/2024 1:30 PM EDT Office Visit Hematology [place] [address] Albino Bartholomew MD [facility] DR [place]EMAT[place] [address] 04/17/2024 10:00 AM EST Office Visit Dermatology at [facility] [address] [place] [address] Oli Winter MD [address] [facility] [place] [address] documented as of this encounter Visit Diagnoses Not on filedocumented in this encounter Care Teams Media Promoter Relationship Specialty Start Date End Date Juan Dempsey MD [address] [place] [address] PCP - General Emergency Medicine 08/20/21 documented as of this encounter
--- OUTSIDE RECORDS SUMMARY | 2024-02-03 16:51 | XMS_ITS | Encounter Summary ---
Author Organization [facility] Address [facility] [place] [address] Care Team Providers Care Drywall Stripper Name Role Phone Juan Dempsey MD Primary Care Provider [phone] Encounter Details Date Type Department Care Team (Late st Contact Info) Description 06/03/2023 Orders [place] [address] [facility] [place] [address] Drug induced liver disease Social History Tobacco Use Types Packs/Day Years [...] 9:15 AM EDT Laboratory Appointment Lab at [facility] Hematology Oncology [address] [place] [address] 02/16/2024 10:20 AM EDT Hospital [place] [address] [facility] DR [place] [address] 02/16/2024 1:30 PM EDT Office Visit [place] [phone] [facility] DR [place] [address] 04/17/2024 10:00 AM EST Office Visit Dermatology at [facility] [address] [place] [address] Oli Winter MD [address] [facility] [place] [place] [address] documented as of this encounter Visit Diagnoses Diagnosis Drug induced liver disease documented in this encounter Care Teams Drywall Stripper Relationship Specialty Start Date End Date Juan Dempsey MD [address] [place] [address] PCP - General Emergency Medicine 08/20/21 documented as of this encounter
--- OUTSIDE RECORDS SUMMARY | 2024-02-03 16:51 | XMS_ITS | Encounter Summary ---
Author Organization [facility] Address [facility] [place] [address] Care Team Providers Care Education Faculty Member Name Role Phone Juan Dempsey MD Primary Care Provider [phone] Encounter Details Date Type Department Care Team (Latest Contact Info) Description 08/11/2023 Travel Social History Tobacco Use Types Packs/Day [...] AM EDT Laboratory Appointment Lab at [facility] Hematology Oncology [address] [place] [address] 02/16/2024 10:20 AM EDT Hospital [place] [phone] Mitali Griffiths APRN [facility] DR HEMATOLOGY [place] [address] 02/16/2024 1:30 PM EDT Office Visit [place] [address] Albino Bartholomew MD [facility] DR HEMATOLOGY [place] [address] 04/17/2024 10:00 AM EST Office Visit Dermatology at [facility] [address] [place] [address] Oli Winter MD [address] [facility] [place] [address] documented as of this encounter Visit Diagnoses Not on filedocumented in this encounter Care Teams Education Faculty Member Relationship Specialty Start Date End Date Juan Dempsey MD [address] [place] [address] PCP - General Emergency Medicine 08/20/21 documented as of this encounter
--- OUTSIDE RECORDS SUMMARY | 2024-02-03 16:51 | XMS_ITS | Encounter Summary ---
Author Organization [facility] Address [facility] [place] [address] Care Team Providers Care Home Based Assistant Name Role Phone Juan Dempsey MD Primary Care Provider [phone] Reason for Referral * Diagnostic Test (Routine) - Closed Specialty Diagnoses / Procedures Referred By Contac t Referred To Contact Radiology Diagnoses Metastatic 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, unspecified laterality Procedures CT Chest Abdomen Pelvis w Contrast (Generic) Kelin Carlos APRN [facility] DR HEMATOLOGY [place] [address] [facility] [place] [address] Referral ID Status Reason Start Date Expiration Date V isits Requested Visits Authorized [id number] Closed Specialty Service Requested 08/24/2023 02/22/2025 1 1 Encounter Details Date Type Department Care Team (Late st Contact Info) Description 08/24/2023 11:30 AM EDT TH Visit (TeleHealth) [place]ematology [place] [address] Kelin Carlos APRN [facility] [place]OLOGY [place] [address] Metastatic 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, unspecified laterality; High risk medication use; Multiple lung nodules on CT; Autoimmune hepatitis; Hypokalemia; Renal function impairment Social History Tobacco Use Types Packs/Day Years [...] place to sleep or slept in a long-term (including now)? No 07/09/2021 Sex and Gender Information Value Date Recorded Sex Assigned at Male 05/23/2021 10:26 AM EST Gender Identity Not on file Sexual Orientation Not on file documented as of this encounter Progress Notes * Kelin Carlos, MARTITA - 08/24/2023 11:30 AM EDT Images from the original note were not included. [facility] Oncology History of Present Illness: Mr. Tenorio [...] L radical nephrectomy on 06/23/21. Interval History: I spoke w/Raymundo by phone for today's visit ( continues to test positive for COVID, so he is being cautious/not wanting to risk exposure to other patients). He had labs drawn earlier today. He has been testing negative for COVID and feels well overall. He continues taking Cabometyx 5 days on/2 days off. Tolerates well. Notices instant changes when he goes off Cabometyx on the weekends - tingling in feet resolves. Mild fatigue, no mouth sores, dry scalp. No mouth sores/oral symptoms, worsening GERD (takes omeprazole), n/v, bowel changes, rashes, pain or other focal complaints. Good appetite, weight is stable. ROS otherwise negative. They are scheduled to go to [place] on 08/31 to visit dtr who is undergoing tx for breast cancer. Will be gone for ~ 2 weeks. Patient Active Problem List Diagnosis Code Renal [...] anempty stomach. Call clinic before starting medication. 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 Pt alert and oriented, no audible distress, clear speech. Lab results: Recent Results (from the past 24 hour(s)) T4, free Result Value Ref Range Free T4 1.48 0.93 - 1.70 ng/dL TSH Result Value Ref Range TSH 3.25 0.27 - 4.20 mcIU/mL Comprehensive metabolic panel (non-fasting) Result Value Ref Range Glucose Lvl 106 65 - 199 mg/dL BUN 24 (H) 10 - 20 mg/dL Creatinine 1.67 (H) 0.80 - 1.50 mg/dL Sodium 141 135 - 145 mmol/L Potassium 3.3 (L) 3.5 - 5.0 mmol/L Chloride 104 98 - 107 mmol/L CO2 27 22 - 31 mmol/L Anion Gap 10 5 - 15 mmol/L Calcium 8.7 8.5 - 10.5 mg/dL Total Protein 6.4 6.1 - 8.0 g/dL Albumin 3.8 3.2 - 5.2 g/dL AST 22 0 - 39 unit/L ALT 27 0 - 55 unit/L Alk Phos 147 (H) 40 - 130 unit/L Total Bilirubin 0.4 0.2 - 1.3 mg/dL Estimated GFR 44 (L) >=60 mL/min/1.73 m?? Hemogram Result Value Ref Range WBC 8.1 4.0 - 9.5 x10(3)/mcL RBC 4.66 4.58 - 5.54 x10(6)/mcL Hemoglobin 14.3 13.7 - 16.5 g/dL Hematocrit 42.3 40.5 - 48.5 % MCV 90.8 82.9 - 93.1 fL MCH 30.7 27.5 - 32.1 pg MCHC 33.8 32.0 - 35.7 g/dL Platelets 185 145 - 357 x10(3)/mcL RDWSD 49.1 (H) 36.0 - 45.0 fL RDWCV 14.7 (H) 11.4 - 13.8 % MPV 9.8 7.6 - 12.9 fL nRBC % Auto 0.0 % nRBC Abs Auto 0.000 0.000 - 0.000 x10(3)/mcL Differential, Automated Result Value Ref Range Neutrophils % 72.6 % Neutr Abs (ANC) 5.87 1.70 - 6.10 x10(3)/mcL Lymphocytes % 17.7 % Lymphocytes Abs 1.4 0.9 - 3.2 x10(3)/mcL Monocytes % 4.0 % Monocyte Abs 0.3 0.3 - 0.9 x10(3)/mcL Eosinophils % 4.3 % Eosinophils Abs 0.4 0.0 - 0.4 x10(3)/mcL Basophils % 1.2 % Basophils Abs 0.1 0.0 - 0.1 x10(3)/mcL Immature Gran % 0.20 % Roro Gran Abs 0.02 0.00 - 0.04 x10(3)/mcL Bilirubin, Direct Result Value Ref Range Bili, Direct 0.1 0.0 - 0.3 mg/dL Pathology: No new pathology to review 02/04/22 [...] (pT): pT3a Regional Lymph Nodes (pN): pN1 Imaging: No new 07/07/2023 CT chest abdomen pelvis: IMPRESSION 1. [...] in the abdomen and pelvis. 10/20/21 CXR ([facility]): 10/16/21: IMPRESSION 1. Unexpected finding: New 6 [...] taper. Pt prefers to get labs at [facility]. We'll send orders and I'll ask our instrument lens grinder apprentice to f/u on results. Advised pt to [...] Cabometyx with minimal side effects. Follows with rating clerk Dr. Pringle, with plans to taper him [...] scan at next visit in 6 weeks. # Mild hypokalemia: recommend resuming K supplement 10 mEq BID. New script sent to [facility]. Will re-check CMP next Wednesday at [facility]. Will ask instrument lens grinder apprentice to f/u on results. # Sl worsened [...] day, 5 days on 2 days off -Resume K supplement 10 mEq BID -Next visit with CBC, CMP, TSH, free T4 and re-staging in 6 weeks -Re-check CMP on 09/28 at [facility] Mr. Tenorio asked appropriate questions and verbalized good understanding of and agreement with the plan. I encouraged him to call anytime with questions or concerns and he agreed. ____ documented in this encounter Plan of Treatment Upcoming Encounters Date Type Department Care Team (Late st Contact Info) Description 02/16/2024 9:15 AM EDT Laboratory Appointment Lab at [facility] Hematology Oncology [address] [place] [address] 02/16/2024 10:20 AM EDT Hospital Encounter CT Scan at [place] [phone] Mitali Griffiths APRN [facility] DR HEMATOLOGY [place] [address] 02/16/2024 1:30 PM EDT Office Visit Hematology [place] [phone] Albino Bartholomew MD [facility] DR HEMATOLOGY [place] [address] 04/17/2024 10:00 AM EST Office Visit Dermatology at [facility] [address] [place] [address] Oli Winter MD [address] [facility] [place] [address] Scheduled Orders Name Type Priority Associated Diagnoses Orde r Schedule Comprehensive metabolic panel (non-fasting) Lab Routine Metastatic 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, unspecified laterality Expected: 02/23/2024 (Approximate), Expires: 08/23/2024 documented as of this encounter Results * CT Chest Abdomen Pelvis w Contrast (Generic) (10/08/2023 1:12 PM EDT) WORKSTATION ID [id number] RAD Anatomical Region Laterality Modality Abdomen, Pelvis Computed Tomogra phy Impressions 10/08/2023 4:27 PM EDT Interval increase in the size of multiple small, pleural-based serpiginous and lobular pulmonary nodules. This appearance is concerning for metastatic disease in given history of renal cell carcinoma and interval growth. Atypical infection, such as Mycobacterium avium complex may have similar appearance. A biopsy should be considered. Thank you for letting us participate in the care of this patient. ??If you are a health care provider and have any questions regarding this report, please contact the number below. ??For patients who have questions please contact the health doggy daycare activities director that requested your imaging first. ? Narrative 10/08/2023 4:27 PM EDT EXAMINATION: CT CHEST ABDOMEN PELVIS W CONTRAST (GENERIC) CLINICAL HISTORY: Kidney cancer, follow up Pt w/metastatic renal cell carcinoma, on cabozantinib; assess tx response (monitoring lung nodules noted to be enlarging on most recent CT) C78.00, Secondary malignant neoplasm of unspecified lung - C64.9, Malignant neoplasm of unspecified kidney, except renal pelvis TECHNIQUE: Helical CT of the chest, abdomen, and pelvis following the intravenous administration of contrast. Administered 113.0 ml of OMNIPAQUE 350.00 mg/ml. Oral contrast was administered. COMPARISON: July 07, 2023 FINDINGS: Chest: Lungs and large airways: Ongoing decrease in size of the irregular, serpiginous, lobulated predominantly peripherally pleural-based positioned pulmonary nodules. The similar likely to left lower lobe lesions currently measures 14 mm compared to 10 mm previously (series 5 image 86). No new lesions identified. Pleura: No effusion. Heart/vasculature: Normal. Lymph nodes: No enlarged lymph nodes. Mediastinum and christine: Normal. Chest wall: Unremarkable. Abdomen/pelvis: Liver: Normal size and attenuation without lesions. Bile ducts: Nondilated. Gallbladder: Decompressed. No calcified gallstones. Pancreas: Normal attenuation without ductal dilatation. Spleen: Normal. Adrenals: Normal. Kidneys: Absent left kidney. Unchanged right kidney, which contains a few small simple parenchymal cysts, and a partially exophytic hyperdense cyst in the upper pole. Urinary Bladder: Normal. Vasculature: No abdominal aortic aneurysm. Lymph Nodes: No enlarged lymph nodes. Bowel: Nondilated, no wall thickening. Redundant sigmoid colon containing a number of small diverticula. Peritoneum and retroperitoneum: No free fluid or loculated fluid collection. No pneumoperitoneum. No mesenteric inflammation. Abdominal wall: A small umbilical fat-containing hernia without evidence of strangulation. No masses. Reproductive organs: Normal. Osseous structures: No suspicious lesions. Procedure Note Tima Zacarias MD - 10/08/2023 EXAMINATION: CT CHEST ABDOMEN PELVIS W CONTRAST (GENERIC) CLINICAL HISTORY: Kidney cancer, follow up Pt w/metastatic renal cell carcinoma, on cabozantinib; assess txresponse (monitoring lung nodules noted to be enlarging on most recent CT) C78.00, Secondary malignant neoplasm of unspecified lung - C64.9,Malignant neoplasm of unspecified kidney, except renal pelvis TECHNIQUE: Helical CT of the chest, abdomen, and pelvis following the intravenous administration of contrast. Administered 113.0 ml ofOMNIPAQUE 350.00 mg/ml. Oral contrast was administered. COMPARISON: July 07, 2023 FINDINGS: Chest: Lungs and large airways: Ongoing decrease in size of the irregular,serpiginous, lobulated predominantly peripherally pleural-based positioned pulmonarynodules. The similar likely to left lower lobe lesions currently measures 14 mmcompared to 10 mm previously (series 5 image 86). No new lesions identified. Pleura: No effusion. Heart/vasculature: Normal. Lymph nodes: No enlarged lymph nodes. Mediastinum and christine: Normal. Chest wall: Unremarkable. Abdomen/pelvis: Liver: Normal size and attenuation without lesions. Bile ducts: Nondilated. Gallbladder: Decompressed. No calcified gallstones. Pancreas: Normal attenuation without ductal dilatation. Spleen: Normal. Adrenals: Normal. Kidneys: Absent left kidney. Unchanged right kidney, which contains a fewsmall simple parenchymal cysts, and a partially exophytic hyperdense cyst in theupper pole. Urinary Bladder: Normal. Vasculature: No abdominal aortic aneurysm. Lymph Nodes: No enlarged lymph nodes. Bowel: Nondilated, no wall thickening. Redundant sigmoid colon containinga number of small diverticula. Peritoneum and retroperitoneum: No free fluid or loculated fluidcollection. No pneumoperitoneum. No mesenteric inflammation. Abdominal wall: A small umbilical fat-containing hernia without evidenceof strangulation. No masses. Reproductive organs: Normal. Osseous structures: No suspicious lesions. IMPRESSION Interval increase in the size of multiple small, pleural-based serpiginousand lobular pulmonary nodules. This appearance is concerning for metastaticdisease in given history of renal cell carcinoma and interval growth. Atypical infection, such as Mycobacterium avium complex may have similarappearance. A biopsy should be considered. Thank you for letting us participate in the care of this patient. If youare a health care provider and have any questions regarding this report,please contact the number below. For patients who have questions please contactthe health doggy daycare activities director that requested your imaging first. Kelin Carlos SLOOP CAPTAIN IMG CT ORDERABLES * T4, free (10/08/2023 10:50 AM EDT) Free T4 1.41 0.93 - 1.70 ng/dL [facility] Comment: Reference Interval (ng/dL): Females: ??First Trimester: 0.97-1.68 ??Second Trimester: 0.77-1.51 ??Third Trimester: 0.77-1.49 Blood 10/08/2023 10:5 0 AM EDT 10/08/2023 11:07 AM EDT Narrative Resulting Agency Comment Spec In Lab Kelin Carlos SLOOP CAPTAIN CHEMISTRY ORDERABL ES Performing Organization Address [facility] de Phone Number [facility] [place] [address] * TSH (10/08/2023 10:50 AM EDT) Thyroid Stimulating Hormone 3.50 0.27 - 4.20 mcIU/mL [facility] Comment: Reference Interval (mcIU/mL): Females: ??First Trimester: 0.23-3.88 ??Second Trimester: 0.22-3.90 ??Third Trimester: 0.44-4.66 Blood 10/08/2023 10:5 0 AM EDT 10/08/2023 11:07 AM EDT Narrative Resulting Agency Comment Spec In Lab Kelin Carlos SLOOP CAPTAIN CHEMISTRY ORDERABL ES Performing Organization Address [facility] de Phone Number [facility] [place] [address] documented in this encounter Visit Diagnoses Diagnosis Metastatic 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, unspecified laterality High risk medication use Encounter for long-term (current) use of other medications Multiple lung nodules on CT Autoimmune hepatitis Hypokalemia Hypopotassemia Renal function impairment Unspecified disorder of kidney and ureter Metastatic 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, unspecified laterality documented in this encounter Care Teams Home Based Assistant Relationship Specialty Start Date End Date Juan Dempsey MD [address] [place] [address] PCP - General Emergency Medicine 08/20/21 documented as of this encounter
--- OUTSIDE RECORDS SUMMARY | 2024-02-03 16:51 | XMS_ITS | Encounter Summary ---
Author Organization Formerly [facility], Later [facility] [place] [address] Care Team Providers Care Spiral Machine Operator Name Role Phone Juan Dempsey MD Primary Care Provider [phone] Reason for Referral * Diagnostic Test (Routine) - Closed Specialty Diagnoses / Procedures Referred By Contac t Referred To Contact Radiology Diagnoses Metastatic 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, unspecified laterality Procedures CT Chest Abdomen Pelvis w Contrast (Generic) Kelin Carlos APRN [facility] [place] [address] [facility] [place] [address] Referral ID Status Reason Start Date Expiration Date V isits Requested Visits Authorized [id number] Closed Specialty Service Requested 08/24/2023 02/22/2025 1 1 Reason for Visit * Diagnostic Test (Routine) - Closed Specialty Diagnoses / Procedures Referred By Contac t Referred To Contact Radiology Diagnoses Metastatic 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, unspecified laterality Procedures CT Chest Abdomen Pelvis w Contrast (Generic) Kelin Carlos APRN [facility] [place] [address] [facility] [place] [address] Referral ID Status Reason Start Date Expiration Date V isits Requested Visits Authorized [id number] Closed Specialty Service Requested 08/24/2023 02/22/2025 1 1 Encounter Details Date Type Department Care Team (Latest Contact Info) Description 10/08/2023 10:30 AM EDT - 10/08/2023 10:38 AM EDT Hospital Encounter CT Scan at [facility] [place] [address] Kelin Carlos APRN [facility] [address] [place] [address] Metastatic renal cell carcinoma to [...] 9:15 AM EDT Laboratory Appointment Lab at [facility] [place] [place] Hematology Oncology [address] [place] [address] 02/16/2024 10:20 AM EDT Hospital [place] [address] Mitali Griffiths APRN [facility] DR HEMATOLOGY AND ONCOLOGY [place], [place] [id number] 02/16/2024 1:30 PM EDT Office Visit H[place]ology [place] [address] Albino Bartholomew MD [facility] DR [place] [address] 04/17/2024 10:00 AM EST Office Visit Dermatology at [facility] [address] [place] [address] Oli Winter MD [address] [facility] [place] [address] documented as of this encounter Procedures Procedure Name Priority Date/Time Associated Diagnosis Comments CT CHEST ABDOMEN PELVIS W CONTRAST (GENERIC) Routine 10/08/2023 1:12 PM EDT Metastatic 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, unspecified laterality POCT CREATININE Routine 10/08/2023 1:07 PM EDT documented in this encounter Results * CT Chest Abdomen Pelvis w Contrast (Generic) (10/08/2023 1:12 PM EDT) [employer] WORKSTATION ID [id number] RAD Anatomical Region Laterality Modality Abdomen, Pelvis [...] who have questions please contact the health healthcare social worker that requested your imaging first. ? Electronically signed by: Tima Zacarias MD, [facility] ([phone]), at 10/08/2023 4:27 PM Narrative 10/08/2023 4:27 PM EDT EXAMINATION: CT [...] patients who have questions please contactthe health healthcare social worker that requested your imaging first. Kelin Carlos APRN IMG CT ORDERABLES * (ABNORMAL) POCT Creatinine (10/08/2023 1:07 PM EDT) Creatinine, POC 1.5 0.8 - 1.5 mg/dL POC Estimated GFR 51(A) 60 Blood 10/08/2023 1:07 PM EDT Kelin Carlos APRN POINT OF CARE TEST ORDERABLES documented in this encounter Visit Diagnoses Diagnosis Metastatic 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, unspecified laterality documented in this encounter Administered Medications Inactive Administered Medications - up to 3 most recent administrations Medication Order MAR Action Action Date Dose Rate Site iohexoL (Omnipaque) (350 mg/mL) solution 0-200 mL 0-200 mL, Intravenous, ONCE PRN, 1 dose, Starting on Wed10/08/23 at 1312, Until Wed10/08/23 at 1313, Per Protocol, Warning Vesicant/Irritant Medication , Radiology Contrast, Routine Given 10/08/2023 1:13 PM EDT 113 mLs iohexoL (Omnipaque) (350 mg/mL) solution 0-50 mL 0-50 mL, Oral, ONCE, 1 dose, On Wed10/08/23 at 1330, Warning Vesicant/Irritant Medication , Radiology Contrast, Routine Given 10/08/2023 1:30 PM EDT 50 mLs documented in this encounter Care Teams Spiral Machine Operator Relationship Specialty Start Date End Date Juan Dempsey MD [address] [place] [address] PCP - General Emergency Medicine 08/20/21 documented as of this encounter
--- OUTSIDE RECORDS SUMMARY | 2024-02-03 16:51 | XMS_ITS | Encounter Summary ---
Author Organization [facility] Address [facility] [place] [address] Care Team Providers Care Excavation Laborer Name Role Phone Juan Dempsey MD Primary Care Provider [phone] Reason for Referral * Diagnostic Test (Routine) - Closed Specialty Diagnoses / Procedures Referred By Burak mcnair Referred To Contact Radiology Diagnoses Metastatic 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, unspecified laterality Procedures CT Chest Abdomen Pelvis w Contrast (Generic) Lulu Jolley APRN [facility] DR HEMATOLOGY [place] [address] [facility] [place] [address] Referral ID Status Reason Start Date Expiration Date V isits Requested Visits Authorized [id number] Closed Specialty Service Requested 06/07/2023 11/30/2024 1 1 Encounter Details Date Type Department Care Team (Late st Contact Info) Description 06/02/2023 2:15 PM EST Office Visit [place]ematology [place] [address] Lulu Jolley APRN [facility] [place]AT[place] [address] Metastatic 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, unspecified laterality Social History Tobacco Use Types Packs/Day Years [...] place to sleep or slept in a group home (including now)? No 07/09/2021 Sex and Gender Information Value Date Recorded Sex Assigned at Male 05/23/2021 10:26 AM EST Gender Identity Not on file Sexual Orientation Not on file documented as of this encounter Last Filed Vital Signs Vital Sign Reading Time Taken Comments Blood Pressure 114/71 06/02/2023 2:06 PM EST Pulse 63 06/02/2023 2:06 PM EST Temperature 36.5 ??C (97.7 ??F) 06/02/2023 2:06 PM ES T Respiratory Rate - - Oxygen Saturation 95% 06/02/2023 2:06 PM EST Inhaled Oxygen Concentration - - Weight 95.6 kg (210 lb 12.2 oz) 06/02/2023 2:06 PM EST Height 177.8 cm (5' 10) 06/02/2023 2:06 PM EST Body Mass Index 30.24 06/02/2023 2:06 PM EST documented in this encounter Progress Notes * Lulu Jolley, CALENDAR CONTROL CLERK BLOOD BANK - 06/02/2023 2:15 PM EST Images from the original note were not included. [facility] Oncology History of Present Illness: Mr. Tenorio [...] for f/u on metastatic renal cell carcinoma, and cabozantinib toxicity check. He's accompanied by his , Emily. He did have diarrhea with multiple bowel movementsin the beginning of April. Cabometyx was held for 10 days with improvement in bowel movements. He resumed Cabometyx 20 mg a day on April 12. Denies diarrhea. Overall, he feels well. He has been off budesonide for more than two months. No rashes. ROS otherwise negative. 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 Wt Readings from Last 3 Encounters: 06/02/23 95.6 kg (210 lb 12.2 oz) 04/28/23 99 kg (218 lb 4.1 oz) 03/17/23 97.9 kg (215 lb 13.3 oz) ECOG PS: 0 General: NAD, pleasant, [...] free Result Value Ref Range Free T4 1.64 0.93 - 1.70 ng/dL TSH Result Value Ref Range TSH 2.83 0.27 - 4.20 mcIU/mL Comprehensive metabolic panel (non-fasting) Result Value Ref Range Glucose Lvl 112 65 - 199 mg/dL BUN 20 10 - 20 mg/dL Creatinine 1.53 (H) 0.80 - 1.50 mg/dL Sodium 142 135 - 145 mmol/L Potassium 4.2 3.5 - 5.0 mmol/L Chloride 106 98 - 107 mmol/L CO2 27 22 - 31 mmol/L Anion Gap 9 5 - 15 mmol/L Calcium 9.2 8.5 - 10.5 mg/dL Total Protein 6.5 6.1 - 8.0 g/dL Albumin 4.0 3.2 - 5.2 g/dL AST 26 0 - 39 unit/L ALT 28 0 - 55 unit/L Alk Phos 124 40 - 130 unit/L Total Bilirubin 0.3 0.2 - 1.3 mg/dL Estimated GFR 49 (L) >=60 mL/min/1.73 m?? Hemogram Result Value Ref Range WBC 7.9 4.0 - 9.5 x10(3)/mcL RBC 4.21 (L) 4.58 - 5.54 x10(6)/mcL Hemoglobin 13.1 (L) 13.7 - 16.5 g/dL Hematocrit 39.2 (L) 40.5 - 48.5 % MCV 93.1 82.9 - 93.1 fL MCH 31.1 27.5 - 32.1 pg MCHC 33.4 32.0 - 35.7 g/dL Platelets 234 145 - 357 x10(3)/mcL RDWSD 46.1 (H) 36.0 - 45.0 fL RDWCV 13.5 11.4 - 13.8 % MPV 9.6 7.6 - 12.9 fL nRBC % Auto 0.0 % nRBC Abs Auto 0.000 0.000 - 0.000 x10(3)/mcL Differential, Automated Result Value Ref Range Neutrophils % 71.5 % Neutr Abs (ANC) 5.68 1.70 - 6.10 x10(3)/mcL Lymphocytes % 18.6 % Lymphocytes Abs 1.5 0.9 - 3.2 x10(3)/mcL Monocytes % 4.9 % Monocyte Abs 0.4 0.3 - 0.9 x10(3)/mcL Eosinophils % 3.3 % Eosinophils Abs 0.3 0.0 - 0.4 x10(3)/mcL Basophils % 1.3 % Basophils Abs 0.1 0.0 - 0.1 x10(3)/mcL Immature Gran % 0.40 % Roro Gran Abs 0.03 0.00 - 0.04 x10(3)/mcL Bilirubin, Direct Result [...] (pT): pT3a Regional Lymph Nodes (pN): pN1 Imagin03/16/23 CT CAP: MPRESSION 1. Right upper and [...] taper. Pt prefers to get labs at [facility]. We'll send orders and I'll ask our solar sales energy advisor to f/u on results. Advised pt to [...] Cabometyx with minimal side effects. Follows with structural steel ironworker Dr. Pringle, with plans to taper him [...] We will schedule kidney ultrasound next visit #L LE DVT: continue Eliquis per PCP. [...] day -Continue Cabometyx 20 mg a day, 7 days on 2 off -Next visit with MD with CBC, CMP, TSH, free T4 and restaging CT scan Mr. Tenorio asked appropriate questions and verbalized good understanding of and agreement with the plan. I encouraged him to call anytime with questions or concerns and he agreed. Lulu Jolley DNP, APRN, AGACNP-BC, AOCNP, ACHPN Division of Hematology Oncology-Gastrointestinal Healthcare ManagerQueen Producerlaborer tanbark [facility] documented in this encounter Plan of Treatment Upcoming Encounters Date Type Department Care Team (Late st Contact Info) Description 02/16/2024 9:15 AM EDT Laboratory Appointment Lab [place] [facility] [place] [address] [place] [address] 02/16/2024 10:20 AM EDT Hospital [place] [address] Mitali Griffiths APRN [facility] DR HEMATOLOGY [place] [address] 02/16/2024 1:30 PM EDT Office Visit Hematology [place] [address] Albino Bartholomew MD [facility] DR HEMATOLOG[place] [address] 04/17/2024 10:00 AM EST Office Visit Dermatology at [facility] [address] [place] [address] Oli Winter MD [address] [facility] [place] [address] documented as of this encounter Results * CT Chest Abdomen Pelvis w Contrast (Generic) (07/07/2023 11:35 AM EST) Anatomical Region Laterality Modality Abdomen, Pelvis Computed Tomogra phy Impressions 07/08/2023 10:58 AM EST 1. ??Bilateral pulmonary nodules are increasing in size, concerning for progressive metastatic disease. 2. ??No definitive sites of metastatic disease are identified within the abdomen or pelvis status post left nephrectomy. 3. ??Stable size of the hyperdense exophytic lesion of the right upper pole kidney. 4. ??Stable, small cyst anterior pancreatic neck without ductal dilation. Continued attention on follow-up. Thank you for letting us participate in the care of this patient. ??If you are a health care provider and have any questions regarding this report, please contact the number below. ??For patients who have questions please contact the health career professional that requested your imaging first. ? Electronically signed by: Мария Mattehw MD, [facility] ??([phone]), at 07/08/2023 10:58 AM Narrative 07/08/2023 10:58 AM EST EXAMINATION: CT CHEST ABDOMEN PELVIS W CONTRAST (GENERIC) CLINICAL HISTORY: renal cell metastatic disease on carbmetyx please compare C78.00, Secondary malignant neoplasm of unspecified lung - C64.9, Malignant neoplasm of unspecified kidney, except renal pelvis TECHNIQUE: Helical CT of the chest, abdomen, and pelvis following the intravenous administration of contrast. Administered 118.0 ml of VISIPAQUE 320.00 mg/ml. Oral contrast was administered. COMPARISON: CT 03/16/2023 at 11/04/2022 FINDINGS: Chest: Lungs and large airways: Multiple bilateral pulmonary nodules have increased in size. For example: Anterior right upper lobe (series 4 image 22) measures 11 x 10 mm, previously 9 x 8 mm. Left lower lobe nodule (series 4 image 84) measures 1.6 x 1.8 cm, previously 1.3 x 1.1 cm. Pleural-based left lower lobe nodule (series 4 image 86) measures 10 mm, previously 6 mm. Right lower lobe nodule (series 4 image 77) measures 6 mm, previously 4 mm. Pleura: No effusion. Heart/vasculature: Heart is stable in size. No pericardial effusion. Aorta is mildly atherosclerotic, normal caliber. Pulmonary arteries are unremarkable. Lymph nodes: No enlarged lymph nodes. Small anterior mediastinal lymph nodes are stable. Mediastinum and christine: Normal. Abdomen/pelvis: Liver: No aggressive lesions are found. Bile ducts: Nondilated. Gallbladder: No calcified stones. Gallbladder wall is slightly thickened which may reflect underlying adenomyomatosis. Pancreas: There is a 1.4 cm cyst of the anterior neck of the pancreas. No pancreatic ductal dilation or acute inflammation. Spleen: Normal. Adrenals: Normal. Kidneys: Left kidney is surgically absent. No enlarging lesions in the nephrectomy bed. No suspicious retroperitoneal nodularity or adenopathy. 12 mm, hyperdense exophytic lesion of the upper pole of the right kidney is unchanged. Additional cysts are noted. Urinary Bladder: Normal. Vasculature: No abdominal aortic aneurysm. Lymph Nodes: No enlarged lymph nodes. Bowel: Nondilated, no wall thickening. ?? Peritoneum and retroperitoneum: No free fluid or loculated fluid collection. No pneumoperitoneum. No mesenteric inflammation. Abdominal wall: Fat-containing umbilical hernia is present. Small fat-containing inguinal hernias are suspected. Reproductive organs: Prostate is slightly enlarged. Osseous structures: No suspicious lesions. Spondylosis is present throughout the thoracic spine. Procedure Note Мария Matthew MD - 07/08/2023 EXAMINATION: CT CHEST ABDOMEN PELVIS W CONTRAST (GENERIC) CLINICAL HISTORY: renal cell metastatic disease on carbmetyx pleasecompare C78.00, Secondary malignant neoplasm of unspecified lung - C64.9,Malignant neoplasm of unspecified kidney, except renal pelvis TECHNIQUE: Helical CT of the chest, abdomen, and pelvis following the intravenous administration of contrast. Administered 118.0 ml ofVISIPAQUE 320.00 mg/ml. Oral contrast was administered. COMPARISON: CT 03/16/2023 at 11/04/2022 FINDINGS: Chest: Lungs and large airways: Multiple bilateral pulmonary nodules have increased in size. For example: Anterior right upper lobe (series 4 image 22) measures 11 x10 mm, previously 9 x 8 mm. Left lower lobe nodule (series 4 image 84) measures1.6 x 1.8 cm, previously 1.3 x 1.1 cm. Pleural-based left lower lobe nodule(series 4 image 86) measures 10 mm, previously 6 mm. Right lower lobe nodule (series4 image 77) measures 6 mm, previously 4 mm. Pleura: No effusion. Heart/vasculature: Heart is stable in size. No pericardial effusion. Aortais mildly atherosclerotic, normal caliber. Pulmonary arteries areunremarkable. Lymph nodes: No enlarged lymph nodes. Small anterior mediastinal lymphnodes are stable. Mediastinum and christine: Normal. Abdomen/pelvis: Liver: No aggressive lesions are found. Bile ducts: Nondilated. Gallbladder: No calcified stones. Gallbladder wall is slightly thickenedwhich may reflect underlying adenomyomatosis. Pancreas: There is a 1.4 cm cyst of the anterior neck of the pancreas.No pancreatic ductal dilation or acute inflammation. Spleen: Normal. Adrenals: Normal. Kidneys: Left kidney is surgically absent. No enlarging lesions in the nephrectomybed. No suspicious retroperitoneal nodularity or adenopathy. 12 mm, hyperdense exophytic lesion of the upper pole of the right kidneyis unchanged. Additional cysts are noted. Urinary Bladder: Normal. Vasculature: No abdominal aortic aneurysm. Lymph Nodes: No enlarged lymph nodes. Bowel: Nondilated, no wall thickening. Peritoneum and retroperitoneum: No free fluid or loculated fluidcollection. No pneumoperitoneum. No mesenteric inflammation. Abdominal wall: Fat-containing umbilical hernia is present. Smallfat-containing inguinal hernias are suspected. Reproductive organs: Prostate is slightly enlarged. Osseous structures: No suspicious lesions. Spondylosis is presentthroughout the thoracic spine. IMPRESSION 1. Bilateral pulmonary nodules are increasing in size, concerning for progressive metastatic disease. 2. No definitive sites of metastatic disease are identified within theabdomen or pelvis status post left nephrectomy. 3. Stable size of the hyperdense exophytic lesion of the right upperpole kidney. 4. Stable, small cyst anterior pancreatic neck without ductal dilation. Continued attention on follow-up. Thank you for letting us participate in the care of this patient. If youare a health care provider and have any questions regarding this report,please contact the number below. For patients who have questions please contactthe health career professional that requested your imaging first. Electronically signed by: Мария Matthew MD, [facility]([phone]), at 07/08/2023 10:58 AM Lulu Jolley APRN IMG CT ORDERABL ES * T4, free (07/07/2023 9:01 AM EST) Free T4 1.47 0.93 - 1.70 ng/dL [facility] Comment: Reference Interval (ng/dL): Females: ??First Trimester: 0.97-1.68 ??Second Trimester: 0.77-1.51 ??Third Trimester: 0.77-1.49 Blood 07/07/2023 9:01 AM EST 07/07/2023 9:14 AM EST Narrative Resulting Agency Comment Spec In Lab Lulu Jolley APRN CHEMISTRY ORDER RADHA Performing Organization Address [facility] Co de Phone Number [facility] [place] [address] * TSH (07/07/2023 9:01 AM EST) Thyroid Stimulating Hormone 3.28 0.27 - 4.20 mcIU/mL [facility] Comment: Reference Interval (mcIU/mL): Females: ??First Trimester: 0.23-3.88 ??Second Trimester: 0.22-3.90 ??Third Trimester: 0.44-4.66 Blood 07/07/2023 9:01 AM EST 07/07/2023 9:14 AM EST Narrative Resulting Agency Comment Spec In Lab Lulu Jolley APRN CHEMISTRY ORDER RADHA [facility] [place] [address] * (ABNORMAL) Comprehensive metabolic panel (non-fasting) (07/07/2023 9:01 AM EST) Glucose 164 65 - 199 mg/dL [facility] Comment:Diabetes: >=200 mg/d L plus symptoms Blood Urea Nitrogen 19 10 - 20 mg/dL [facility] Creatinine 1.60(H) 0.80 - 1.50 mg/dL [facility] Sodium 141 135 - 145 mmol/L [facility] Potassium 3.7 3.5 - 5.0 mmol/L [facility] Comment: Please note: ??Patients with WBC >100,000 may have falsely elevated Potassium levels. ??For accurate Potassium quantification in these patients send serum separator tube (gold top) for subsequent determinations. ??Contact the Clinical Chemistry Laboratory if there are any questions. Chloride 104 98 - 107 mmol/L [facility] Carbon Dioxide 28 22 - 31 mmol/L [facility] Anion Gap 9 5 - 15 mmol/L [facility] Calcium 9.1 8.5 - 10.5 mg/dL [facility] Protein, Total 6.6 6.1 - 8.0 g/dL [facility] Albumin 4.0 3.2 - 5.2 g/dL [facility] Aspartate Aminotransferase 21 0 - 39 unit/L [facility] Alanine Aminotransferase 31 0 - 55 unit/L [facility] Alkaline Phosphatase 149(H) 40 - 130 unit/L [facility] Bilirubin, Total 0.4 0.2 - 1.3 mg/dL [facility] Est Glomerular Filtration Rate 47(L) >=60 mL/min/1. 73 m?? 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
--- OUTSIDE RECORDS SUMMARY | 2024-02-03 16:51 | XMS_ITS | Encounter Summary ---
Author Organization [facility] Address [facility] [place] [address] Care Team Providers Care Professor Of Chemistry Name Role Phone Juan Dempsey MD Primary Care Provider [phone] Reason for Visit * Reason Onset Date Comments Medication Refill 11/15/2023 Encounter Details Date Type Department Care Team (Late st Contact Info) Description 11/15/2023 Refill [place] [address] Kelin Carlos, THREAD SPINNER [facility] DR HEMATOLOGY [place] [address] Social History Tobacco Use Types Packs/Day Years [...] encounter Miscellaneous Notes * Telephone Encounter - Rose Mary Abarca RN - 11/16/2023 8:49 AM EDT Oral Chemotherapy Rx Refill Note (No Rx Change) 11/16/2023 Cristofer Tenorio, 1955 Prescription for oral chemotherapy Cabometyx was written by provider without any changes and e-prescribed to pharmacy to be filled. documented in this encounter Plan of Treatment Upcoming Encounters Date Type Department Care Team (Late st Contact Info) Description 02/16/2024 9:15 AM EDT Laboratory Appointment [place] [facility] [place] [address] [place] [address] 02/16/2024 10:20 AM EDT Hospital [place] [address] Mitali Griffiths APRN [facility] DR HEMATOLOGY [place] [address] 02/16/2024 1:30 PM EDT Office Visit Hematology [place] [address] Albino Bartholomew MD [facility] DR HEMAT[place]Y [place] [address] 04/17/2024 10:00 AM EST Office Visit Dermatology at [address] [place] [address] Oli Winter MD [address] [facility] [place] [place] [address] documented as of this encounter Visit Diagnoses Not on filedocumented in this encounter Care Teams Professor Of Chemistry Relationship Specialty Start Date End Date Juan Dempsey MD [address] [place] [address] PCP - General Emergency Medicine 08/20/21 documented as of this encounter
--- OUTSIDE RECORDS SUMMARY | 2024-02-03 16:51 | XMS_ITS | Encounter Summary ---
Author Organization [facility] Address [facility] [place] [address] Care Team Providers Care Fibreglass Gun Hand Name Role Phone Juan Dempsey MD Primary Care Provider [phone] Encounter Details Date Type Department Care Team (Latest Contact Info) Description 08/23/2023 Travel Social History Tobacco Use Types Packs/Day [...] 9:15 AM EDT Laboratory Appointment Lab at [facility] Hematology Oncology [address] [place] [address] 02/16/2024 10:20 AM EDT Hospital [place] [address] Mitali Griffiths APRN [facility] DR HEMATOLOGY [place] [address] 02/16/2024 1:30 PM EDT Office Visit [place]ology [place] [address] Albino Bartholomew MD [facility] DR HEMATOLOGY [place] [address] 04/17/2024 10:00 AM EST Office Visit Dermatology at [facility] [address] [place] [address] Oli Winter MD [address] [facility] [address] documented as of this encounter Visit Diagnoses Not on filedocumented in this encounter Care Teams Fibreglass Gun Hand Relationship Specialty Start Date End Date Juan Dempsey MD [address] [place] [address] PCP - General Emergency Medicine 08/20/21 documented as of this encounter
--- OUTSIDE RECORDS SUMMARY | 2024-02-03 16:51 | XMS_ITS | Encounter Summary ---
Author Organization [facility] [place] [address] Care Team Providers Care Candy Cutter Hand Name Role Phone Juan Dempsey MD Primary Care Provider [phone] Reason for Referral * Diagnostic Test (Routine) - Closed Specialty Diagnoses / Procedures Referred By Contac t Referred To Contact Radiology Diagnoses Metastatic 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, unspecified laterality Procedures CT Chest Abdomen Pelvis w Contrast (Generic) Lulu Jolley APRN [facility] [place] [address] [facility] [place] [address] Referral ID Status Reason Start Date Expiration Date V isits Requested Visits Authorized [id number] Closed Specialty Service Requested 06/07/2023 11/30/2024 1 1 Reason for Visit * Diagnostic Test (Routine) - Closed Specialty Diagnoses / Procedures Referred By Burak mcnair Referred To Contact Radiology Diagnoses Metastatic 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, unspecified laterality Procedures CT Chest Abdomen Pelvis w Contrast (Generic) Lulu Jolley APRN [facility] [place] [address] [facility] [address] Scan [facility] [place] [address] Referral ID Status Reason Start Date Expiration Date V isits Requested Visits Authorized [id number] Closed Specialty Service Requested 06/07/2023 11/30/2024 1 1 Encounter Details Date Type Department Care Team (Late st Contact Info) Description 07/07/2023 8:47 AM EST - 07/07/2023 8:55 AM EST Hospital Encounter CT Scan at [facility] [place] [address] Lulu Jolley APRN [facility] DR [place] [address] Metastatic renal cell carcinoma to [...] 9:15 AM EDT Laboratory Appointment Lab at [facility] Hematology Oncology [address] [place] [address] 02/16/2024 10:20 AM EDT Hospital Encounter [place] [address] Mitali Griffiths APRN [facility] DR [place] [address] 02/16/2024 1:30 PM EDT Office Visit Hematology and [place]cology [place] [address] Albino Bartholomew MD [facility] DR [place] [address] 04/17/2024 10:00 AM EST Office Visit Dermatology at [facility] [address] [place] [address] Oli Winter MD [address] [facility] [place] [address] documented as of this encounter Procedures Procedure Name Priority Date/Time Associated Diagnosis Comments CT CHEST ABDOMEN PELVIS W CONTRAST (GENERIC) Routine 07/07/2023 11:35 AM EST Metastatic 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, unspecified laterality documented in this encounter Results * CT [...] who have questions please contact the health senior care provider that requested your imaging first. ? Narrative 07/08/2023 10:58 AM EST EXAMINATION: CT [...] patients who have questions please contactthe health senior care provider that requested your imaging first. Lulu Jolley APRN IMG CT ORDERABL ES documented in this encounter Visit Diagnoses Diagnosis Metastatic 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, unspecified laterality documented in this encounter Administered Medications Inactive Administered Medications - up to 3 most recent administrations Medication Order MAR Action Action Date Dose Rate Site iodixanoL (Visipaque) (320 mg/mL) injection solution 0-200 mL 0-200 mL, Intravenous, ONCE PRN, 1 dose, Starting on 07/07/23 at 1136, Until Wed07/07/23 at 1136, Per Protocol, Radiology Contrast, Routine Given 07/07/2023 11:36 AM EST 118 mLs iohexoL (Omnipaque) (350 mg/mL) solution 0-50 mL 0-50 mL, Oral, ONCE PRN, 1 dose, Starting on Wed07/07/23 at 1136, Until Wed07/07/23 at 1136, Per Protocol, Warning Vesicant/Irritant Medication , Radiology Contrast, Routine Given 07/07/2023 11:36 AM EST 50 mLs documented in this encounter Care Teams Candy Cutter Hand Relationship Specialty Start Date End Date Juan Dempsey MD [address] [place] [address] PCP - General Emergency Medicine 08/20/21 documented as of this encounter
--- OUTSIDE RECORDS SUMMARY | 2024-02-03 16:52 | XMS_ITS | Encounter Summary ---
Author Organization [facility] Address [facility] [place] [address] Care Team Providers Care Draw Fire Operator Name Role Phone Juan eDmpsey MD Primary Care Provider [phone] Encounter Details Date Type Department Care Team (Late st Contact Info) Description 03/01/2023 Orders Only [place] [phone] Judy Gonzalez, RN Social History Tobacco Use Types Packs/Day [...] place to sleep or slept in a detention (including now)? No 07/09/2021 Sex and Gender Information Value Date Recorded Sex Assigned at Male 05/23/2021 10:26 AM EST Gender Identity Not on file Sexual Orientation Not on file documented as of this encounter Plan of Treatment Upcoming Encounters Date Type Department Care Team (Late st Contact Info) Description 02/16/2024 9:15 AM EDT Laboratory Appointment Lab at [facility] Hematology Oncology [address] [place] [address] 02/16/2024 10:20 AM EDT Hospital Encounter CT Scan at [place] [phone] Mitali Griffiths APRN [facility] DR [place] [address] 02/16/2024 1:30 PM EDT Office Visit Hematology [place] [address] Albino Bartholomew MD [facility] DR [place] [address] 04/17/2024 10:00 AM EST Office Visit D[facility] at [facility] [address] [place] [address] Oli Winter MD [address] [facility] [place] [address] documented as of this encounter Visit Diagnoses Not on filedocumented in this encounter Care Teams Draw Fire Operator Relationship Specialty Start Date End Date Juan Dempsey MD [address] [place] [address] PCP - General Emergency Medicine 08/20/21 documented as of this encounter
--- OUTSIDE RECORDS SUMMARY | 2024-02-03 16:52 | XMS_ITS | Encounter Summary ---
Author Organization [facility] Address [facility] [place] [address] Care Team Providers Care Urogynecology Physician Name Role Phone Juan Dempsey MD Primary Care Provider [phone] Encounter Details Date Type Department Care Team (Latest Contact Info) Description 03/17/2023 Travel Social History Tobacco Use Types Packs/Day [...] 9:15 AM EDT Laboratory Appointment Lab at [facility] [place] [address] [place] [address] 02/16/2024 10:20 AM EDT Hospital [place]counter [place] [address] Mitali Griffiths APRN [facility] DR [place] [address] 02/16/2024 1:30 PM EDT Office Visit Hematology [place] [address] Albino Bartholomew MD [facility] [address] [place] [address] 04/17/2024 10:00 AM EST Office Visit Dermatology at [facility] [address] [place] [address] Oli Winter MD [address] [facility] [place] [address] documented as of this encounter Visit Diagnoses Not on filedocumented in this encounter Care Teams Urogynecology Physician Relationship Specialty Start Date End Date Juan Dempsey MD [address] [place] [address] PCP - General Emergency Medicine 08/20/21 documented as of this encounter
--- OUTSIDE RECORDS SUMMARY | 2024-02-03 16:52 | XMS_ITS | Encounter Summary ---
Author Organization [facility] Address [facility] [place] [address] Care Team Providers Care Cordwood Cutter Name Role Phone Juan Dempsey MD Primary Care Provider [phone] Encounter Details Date Type Department Care Team (Latest Contact Info) Description 02/03/2023 Travel Social History Tobacco Use Types Packs/Day [...] AM EDT Laboratory Appointment Lab at [facility] Hematology Oncology [address] [place] [address] 02/16/2024 10:20 AM EDT Hospital [place] [address] Mitali Griffiths APRN [facility] DR HEMATOLOGY [place] [address] 02/16/2024 1:30 PM EDT Office Visit Hematology [place] [address] Albino Bartholomew MD [facility] DR HEMATOLOGY [place] [address] 04/17/2024 10:00 AM EST Office Visit Dermatology at [facility] [address] [place] [address] Oli Winter MD [address] [facility] [address] documented as of this encounter Visit Diagnoses Not on filedocumented in this encounter Care Teams Cordwood Cutter Relationship Specialty Start Date End Date Juan Dempsey MD [address] [place] [address] PCP - General Emergency Medicine 08/20/21 documented as of this encounter
--- OUTSIDE RECORDS SUMMARY | 2024-02-03 16:52 | XMS_ITS | Encounter Summary ---
Author Organization [facility] Address [facility] [place] [address] Care Team Providers Care Plant Machinist Name Role Phone Juan Dempsey MD Primary Care Provider [phone] Encounter Details Date Type Department Care Team (Latest Contact Info) Description 03/09/2023 Travel Social History Tobacco Use Types Packs/Day [...] 9:15 AM EDT Laboratory Appointment Lab at [facility] Hematology Oncology [address] [place] [address] 02/16/2024 10:20 AM EDT Hospital [place] [address] Mitali Griffiths APRN [facility] DR [place] [address] 02/16/2024 1:30 PM EDT Office Visit Hematology [place] [address] Albino Bartholomew MD [facility] DR [place] [address] 04/17/2024 10:00 AM EST Office Visit Dermatology at [facility] [address] [place] [address] Oli Winter MD [address] [facility] [place] [address] documented as of this encounter Visit Diagnoses Not on filedocumented in this encounter Care Teams Plant Machinist Relationship Specialty Start Date End Date Juan Dempsey MD [address] [place] [address] PCP - General Emergency Medicine 08/20/21 documented as of this encounter
--- OUTSIDE RECORDS SUMMARY | 2024-02-03 16:52 | XMS_ITS | Encounter Summary ---
Author Organization [facility] Address [facility] [place] [address] Care Team Providers Care Marketing Planner Name Role Phone Juan Dempsey MD Primary Care Provider [phone] Encounter Details Date Type Department Care Team (Late st Contact Info) Description 01/13/2023 Orders [place] [address] Ana Pringle MD [facility] [place] [address] Drug-induced liver injury Social History Tobacco Use Types Packs/Day Years [...] 9:15 AM EDT Laboratory Appointment Lab at [facility] Hematology Oncology [address] [place] [address] 02/16/2024 10:20 AM EDT Hospital [place] [address] Mitali Griffiths APRN [facility] [place] [address] 02/16/2024 1:30 PM EDT Office Visit Hematology [place] [address] Albino Bartholomew MD [facility] DR [place]ATOLOGY [place] [address] 04/17/2024 10:00 AM EST Office Visit Dermatology at [facility] [address] [place] [address] Oli Winter MD [address] [facility] [place] [address] documented as of this encounter Visit Diagnoses Diagnosis Drug-induced liver injury documented in this encounter Care Teams Marketing Planner Relationship Specialty Start Date End Date Juan Dempsey MD [address] [place] [address] PCP - General Emergency Medicine 08/20/21 documented as of this encounter
--- OUTSIDE RECORDS SUMMARY | 2024-02-03 16:52 | XMS_ITS | Encounter Summary ---
Author Organization [facility] Address [facility] [place] [address] Care Team Providers Care Casting Machine Adjuster Name Role Phone Juan Dempsey MD Primary Care Provider [phone] Reason for Referral * Diagnostic Test (Routine) - Closed Specialty Diagnoses / Procedures Referred By Contac t Referred To Contact Radiology Diagnoses Metastatic 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, unspecified laterality Multiple lung nodules on CT Procedures CT Chest Abdomen Pelvis w Contrast (Generic) Albino Costello MD [facility] DR H[place]AT[place] [address] [facility] [place] [address] Referral ID Status Reason Start Date Expiration Date V isits Requested Visits Authorized [id number] Closed Specialty Service Requested 02/22/2023 08/23/2024 1 1 Reason for Visit * Reason Comments Follow-up Encounter Details Date Type Department Care Team (Late st Contact Info) Description 02/10/2023 10:00 AM EDT Office Visit Hematology [place] [address] Albino Costello MD [facility] DR HEMATOLOG[place] [address] Metastatic 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, unspecified laterality (Primary Dx); Multiple lung nodules on CT; Abnormal thyroid function test; High risk medication use Social History Tobacco Use Types Packs/Day Years [...] Sign Reading Time Taken Comments Blood Pressure 131/69 02/10/2023 10:24 AM EDT Pulse 76 02/10/2023 10:24 AM EDT Temperature 36.7 ??C (98.1 ??F) 02/10/2023 10:24 AM E DT Respiratory Rate 22 02/10/2023 10:24 AM EDT Oxygen Saturation 100% 02/10/2023 10:24 AM EDT Inhaled Oxygen Concentration - - Weight 97 kg (213 lb 13.5 oz) 02/10/2023 10:24 A M EDT Height 181.6 cm (5' 11.5) 02/10/2023 10:24 AM E DT Body Mass Index 29.41 02/10/2023 10:24 AM EDT documented in this encounter Progress Notes * Albino Costello MD - 02/10/2023 10:00 AM EDT Images from the original note were not included. [facility] Oncology History of Present Illness: Mr. Tenorio is a 67 y.o. man diagnosed pT3aN1 clear cell renal [...] and underwent L radical nephrectomy on 06/23/21. Recovering well from surgery. Reports feeling fine. Has been taking some tylenol for minor discomfort but no significant pain. No focal bone pain. No urinary symptoms. No recurrent hematuria. Staying active around the house. Incision is healing well. No fevers, chills, recent infections or infectious symptoms. Interval History: Raymundo is in clinic for f/u on metastatic renal cell carcinoma and cabozantinib toxicity check. He's accompanied by his , Emily. He continues to do well, tolerating Cabometyx 20 mg/day with minimal side effects. He feels at his baseline. No new focal complaints. No n/v. Bowels regular, on budesonide 6 mg a day per GI. No rashes. ROS otherwise negative. Patient Active Problem List Diagnosis Code Renal mass N28.89 Renal cell carcinoma C64.9 Medication management Z79.899 PMH, PSH, and current medications reviewed, as documented in the electronic medical record. Current Outpatient Medications Medication Instructions acetaminophen (TYLENOL) 650-975 mg, Oral, EVERY 6 HOURS PRN amLODIPine (Norvasc) 10 mg Tablet TAKE ONE TABLET BY MOUTH EVERY DAY FOR BLOOD PRESSURE budesonide EC (ENTOCORT EC) 3 mg, Oral, EVERY MORNING cabozantinib (CABOMETYX) 20 mg, Oral, DAILY, Take on an empty stomach. Call clinic before starting medication. 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 Wt Readings from Last 3 Encounters: 01/13/23 96.2 kg (212 lb 1.3 oz) 12/01/22 96.1 kg (211 lb 13.8 oz) 11/06/22 95.5 kg (210 lb 8.6 oz) ECOG PS: 0 General: NAD, pleasant, [...] Heme: No cervical or supraclavicular adenopathy. Psych: Conversant, normal mood and affect. Vitals: BP 131/69 (Patient Position: Sitting) Pulse 76 Temp 36.7 ??C (98.1 ??F) (Temporal) Resp 22 Ht 181.6 cm (5' 11.5) Wt 97 kg (213 lb 13.5 oz) SpO2 100% BMI 29.41 kg/m?? Lab results: Recent Results (from the past 24 hour(s)) T4, free Result Value Ref Range Free T4 1.43 0.93 - 1.70 ng/dL TSH Result Value Ref Range TSH 6.10 (H) 0.27 - 4.20 mcIU/mL Comprehensive metabolic panel (non-fasting) Result Value Ref Range Glucose Lvl 93 65 - 199 mg/dL BUN 24 (H) 10 - 20 mg/dL Creatinine 1.44 0.80 - 1.50 mg/dL Sodium 142 135 - 145 mmol/L Potassium 3.6 3.5 - 5.0 mmol/L Chloride 105 98 - 107 mmol/L CO2 29 22 - 31 mmol/L Anion Gap 8 5 - 15 mmol/L Calcium 9.2 8.5 - 10.5 mg/dL Total Protein 6.2 6.1 - 8.0 g/dL Albumin 4.0 3.2 - 5.2 g/dL AST 30 0 - 39 unit/L ALT 38 0 - 55 unit/L Alk Phos 106 40 - 130 unit/L Total Bilirubin 0.4 0.2 - 1.3 mg/dL Estimated GFR 53 (L) >=60 mL/min/1.73 m?? Hemogram Result Value Ref Range WBC 9.5 4.0 - 9.5 x10(3)/mcL RBC 4.25 (L) 4.58 - 5.54 x10(6)/mcL Hemoglobin 13.9 13.7 - 16.5 g/dL Hematocrit 41.3 40.5 - 48.5 % MCV 97.2 (H) 82.9 - 93.1 fL MCH 32.7 (H) 27.5 - 32.1 pg MCHC 33.7 32.0 - 35.7 g/dL Platelets 193 145 - 357 x10(3)/mcL RDWSD 54.6 (H) 36.0 - 45.0 fL RDWCV 15.5 (H) 11.4 - 13.8 % MPV 9.8 7.6 - 12.9 fL nRBC % Auto 0.0 % nRBC Abs Auto 0.000 0.000 - 0.000 x10(3)/mcL Differential, Automated Result Value Ref Range Neutrophils % 74.8 % Neutr Abs (ANC) 7.11 (H) 1.70 - 6.10 x10(3)/mcL Lymphocytes % 17.5 % Lymphocytes Abs 1.7 0.9 - 3.2 x10(3)/mcL Monocytes % 4.6 % Monocyte Abs 0.4 0.3 - 0.9 x10(3)/mcL Eosinophils % 1.9 % Eosinophils Abs 0.2 0.0 - 0.4 x10(3)/mcL Basophils % 0.8 % Basophils Abs 0.1 0.0 - 0.1 x10(3)/mcL Immature Gran % 0.40 % Roro Gran Abs 0.04 0.00 - 0.04 x10(3)/mcL Bilirubin, Direct Result [...] Lymph Nodes (pN): pN1 Imaging: No new 11/04/22 CT CAP: IMPRESSION 1. No local [...] CT ABD/Pelvis Assessment: Raymundo Tenorio is a 67 [address] Dr[address] Hou for recently [...] taper. Pt prefers to get labs at [facility]. We'll send orders and I'll ask our pilot steam yacht to f/u on results. Advised pt to [...] on 40 mg/day). Per discussion with Dr. Costello who consulted w/Dr. Merino/Hepatology, we recommend switching [...] Cabometyx with minimal side effects. Follows with mva still operator Dr. Pringle, with plans to taper him [...] Continues to follow with GI Dr. Pringle #Hypothyroid: TSH slightly elevated. T4 wnl. Continue levothyroxine 50 mcg a day. We will monitor #I right kidney mass: as noted previously: Hemorrhagic cyst on MRI. Not suspicious for solid tumor.. Concern for possible solid mass arising at [...] or concerns and he agreed. Plan: - Continue Levothyroxine 50 mcg a day -Continue Cabometyx 20 mg a day -Next visit with CBC, CMP, TSH, free T4 and restaging CT CAP in 4-5 weeks Mr. Tenorio asked appropriate questions and verbalized good understanding of and agreement with the plan. I encouraged him to call anytime with questions or concerns and he agreed. ALBINO COSTELLO MD Oncology documented in this encounter Plan of Treatment Upcoming Encounters Date Type Department Care Team (Late st Contact Info) Description 02/16/2024 9:15 AM EDT Laboratory Appointment Lab at [facility] Hematology Oncology [address] [place] [address] 02/16/2024 10:20 AM EDT Hospital [place] [address] Mitali Griffiths APRN [facility] H[place]ATOLOGY [place] [address] 02/16/2024 1:30 PM EDT Office Visit Hematology [place] [address] Albino Costello MD [facility] DR HEMATOLOGY [place] [address] 04/17/2024 10:00 AM EST Office Visit Dermatology at [facility] [address] [place] [address] Oli Winter MD [address] [facility] [place] [address] documented as of this encounter Results * CT Chest Abdomen Pelvis w Contrast (Generic) (03/16/2023 2:38 PM EST) Anatomical Region Laterality Modality Abdomen, Pelvis Computed Tomogra phy Impressions 03/17/2023 10:08 AM EST 1. ??Right upper and left lower lobe pulmonary nodules suspicious for metastases unchanged. Slight interval enlargement of a pleural-based left lower lobe nodule which is indeterminate; intrapulmonary lymph node versus enlarging metastasis. Close attention on follow-up studies is advised. 2. ??Stable size of a hyperdense right upper pole renal lesion which appeared cystic on the comparison MRI; findings may reflect hemorrhagic cyst currently. 3. ??Cystic lesion in the body of the pancreas is stable over a one year interval. This may be a cyst, pseudocyst, or sidebranch IPMN. One-year follow-up MRI is recommended versus attention on planned follow-up studies. Thank you for letting us participate in the care of this patient. ??If you are a health care provider and have any questions regarding this report, please contact the number below. ??For patients who have questions please contact the health child care cook that requested your imaging first. ? Narrative 03/17/2023 10:08 AM EST EXAMINATION: CT CHEST ABDOMEN PELVIS W CONTRAST (GENERIC) CLINICAL HISTORY: Kidney cancer, recurrence, follow up Restaging of metastatic renal cell carcinoma TECHNIQUE: Helical CT of the chest, abdomen, and pelvis following the intravenous administration of contrast. 131 mL of Visipaque 320 were given intravenously. Oral contrast was administered. COMPARISON: 11/04/2022, MR abdomen 02/06/2022 FINDINGS: Chest: Lungs and large airways: Central airways are widely patent. Spiculated right upper lobe nodule measuring 9.5 mm is unchanged. Lobular left lower lobe nodule measuring 13 mm is unchanged. A 6 mm pleural-based left lower lobe nodule was previously punctate. There are 2 less than 5 mm ovoid subpleural nodules in the right lung that are favored to be intrapulmonary lymph nodes. No airspace opacity or interstitial abnormality. Pleura: No effusion. Heart/vasculature: Normal size. No pericardial effusion. Lymph nodes: No enlarged lymph nodes. Mediastinum and christine: Large volume of mediastinal fat; no interval change. Abdomen/pelvis: Liver: Normal size and density with patent hepatic and portal veins. Smooth contour. No lesions. Bile ducts: Nondilated. Gallbladder: Nodular soft tissue focus along the posterior wall is unchanged; question polyp. No calcified stones, wall thickening or adjacent inflammation. Pancreas: An 11 mm fluid attenuating lesion in the pancreatic body is unchanged to marginally increased in size. No ductal dilatation or atrophy. Spleen: Normal. Adrenals: Normal. Kidneys: 13 mm exophytic hyperdense right upper pole lesion is unchanged. 1 cm right upper pole cyst is unchanged. Punctate lower pole lesion is too small to characterize. No collecting system dilatation or calculi. Status post left nephrectomy. No nodularity in the resection bed. Urinary Bladder: Decompressed, unremarkable. Vasculature: No abdominal aortic aneurysm. Lymph Nodes: No enlarged lymph nodes. Bowel: No dilated small or large bowel loops or bowel wall thickening. The cecum is located anteriorly in the right mid abdomen horizontally oriented, indicating a mobile mesentery. The terminal ileum is normal. Mild fecal loading of the colon. Peritoneum and retroperitoneum: No free fluid or loculated fluid collection. No pneumoperitoneum. No mesenteric inflammation. Abdominal wall: Stable small fat-containing umbilical hernia. Stable fat-containing right inguinal hernia. Reproductive organs: Normal. Osseous structures: No suspicious lesions. Procedure Note Lynette Maya MD - 03/17/2023 EXAMINATION: CT CHEST ABDOMEN PELVIS W CONTRAST (GENERIC) CLINICAL HISTORY: Kidney cancer, recurrence, follow up Restaging of metastatic renal cell carcinoma TECHNIQUE: Helical CT of the chest, abdomen, and pelvis following the intravenous administration of contrast. 131 mL of Visipaque 320 weregiven intravenously. Oral contrast was administered. COMPARISON: 11/04/2022, MR abdomen 02/06/2022 FINDINGS: Chest: Lungs and large airways: Central airways are widely patent. Spiculatedright upper lobe nodule measuring 9.5 mm is unchanged. Lobular left lower lobenodule measuring 13 mm is unchanged. A 6 mm pleural-based left lower lobe nodulewas previously punctate. There are 2 less than 5 mm ovoid subpleural nodulesin the right lung that are favored to be intrapulmonary lymph nodes. Noairspace opacity or interstitial abnormality. Pleura: No effusion. Heart/vasculature: Normal size. No pericardial effusion. Lymph nodes: No enlarged lymph nodes. Mediastinum and christine: Large volume of mediastinal fat; no intervalchange. Abdomen/pelvis: Liver: Normal size and density with patent hepatic and portal veins.Smooth contour. No lesions. Bile ducts: Nondilated. Gallbladder: Nodular soft tissue focus along the posterior wall isunchanged; question polyp. No calcified stones, wall thickening or adjacentinflammation. Pancreas: An 11 mm fluid attenuating lesion in the pancreatic body isunchanged to marginally increased in size. No ductal dilatation or atrophy. Spleen: Normal. Adrenals: Normal. Kidneys: 13 mm exophytic hyperdense right upper pole lesion is unchanged.1 cm right upper pole cyst is unchanged. Punctate lower pole lesion is toosmall to characterize. No collecting system dilatation or calculi. Status post left nephrectomy. No nodularity in the resection bed. Urinary Bladder: Decompressed, unremarkable. Vasculature: No abdominal aortic aneurysm. Lymph Nodes: No enlarged lymph nodes. Bowel: No dilated small or large bowel loops or bowel wall thickening. Thececum is located anteriorly in the right mid abdomen horizontally oriented,indicating a mobile mesentery. The terminal ileum is normal. Mild fecal loading ofthe colon. Peritoneum and retroperitoneum: No free fluid or loculated fluidcollection. No pneumoperitoneum. No mesenteric inflammation. Abdominal wall: Stable small fat-containing umbilical hernia. Stable fat-containing right inguinal hernia. Reproductive organs: Normal. Osseous structures: No suspicious lesions. IMPRESSION 1. Right upper and left lower lobe pulmonary nodules suspicious formetastases unchanged. Slight interval enlargement of a pleural-based left lower lobenodule which is indeterminate; intrapulmonary lymph node versus enlargingmetastasis. Close attention on follow-up studies is advised. 2. Stable size of a hyperdense right upper pole renal lesion whichappeared cystic on the comparison MRI; findings may reflect hemorrhagic cystcurrently. 3. Cystic lesion in the body of the pancreas is stable over a one year interval. This may be a cyst, pseudocyst, or sidebranch IPMN. [id number] MRI is recommended versus attention on planned follow-up studies. Thank you for letting us participate in the care of this patient. If youare a health care provider and have any questions regarding this report,please contact the number below. For patients who have questions please contactthe health child care cook that requested your imaging first. Albino Costello MD IMG CT ORDERABLES documented in this encounter Visit Diagnoses Diagnosis Metastatic 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, unspecified laterality- Primary Multiple lung nodules on CT Abnormal thyroid function test Nonspecific abnormal results of thyroid function study High risk medication use Encounter for long-term (current) use of other medications Metastatic 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, unspecified laterality Multiple lung nodules on CT documented in this encounter Care Teams Casting Machine Adjuster Relationship Specialty Start Date End Date Juan Dempsey MD [address] [place] [address] PCP - General Emergency Medicine 08/20/21 documented as of this encounter
--- OUTSIDE RECORDS SUMMARY | 2024-02-03 16:52 | XMS_ITS | Encounter Summary ---
Author Organization [facility] Address [facility] [place] [address] Care Team Providers Care Superintendent Production Name Role Phone Juan Dempsey MD Primary Care Provider [phone] Encounter Details Date Type Department Care Team (Late st Contact Info) Description 05/12/2023 Telephone Hematology [place] [address] Mary Salas RN Social History [...] Telephone Encounter - Mary Salas RN - 05/12/2023 8:30 AM EST Received message: We held Cristofer's Cabometyx for a week due to GI issues, mostly abdominal pain. Please give him a call and reassess. If he is having normal bms and no pain, he can restart. Call placed to patient who reports that he is doing much better. Confirmed that he has been off Cabometyx for a week. Is not having any issues at the moment. Pain has been completely gone for the last three days. Bowels are back to his baseline. Reports that he is planning on restarting the cabometxy tonight. Instructed patient to be sure to call clinic back if symptoms start again or with any new symptoms. Pt verbalized understanding and agreement and knows to call clinic with any concerns and/or questions. documented in this encounter Plan of Treatment Upcoming Encounters Date Type Department Care Team (Late st Contact Info) Description 02/16/2024 9:15 AM EDT Laboratory Appointment Lab at [facility] Hematology Oncology [address] [place] [address] 02/16/2024 10:20 AM EDT Hospital Encounter [place] [address] Mitali Griffiths, HAND GLASS CUTTER [facility] DR HEMATOLOGY [place] [address] 02/16/2024 1:30 PM EDT Office Visit Hematology and Oncology at [facility] [place] [address] Albino Bartholomew MD [facility] DR HEMATOLOGY [place] [address] 04/17/2024 10:00 AM EST Office Visit Dermatology at [facility] [address] [place] [phone] Oli Winter MD [address] [facility] [place] [address] documented as of this encounter Visit Diagnoses Not on filedocumented in this encounter Care Teams Superintendent Production Relationship Specialty Start Date End Date Juan Dempsey MD [address] [place] [address] PCP - General Emergency Medicine 08/20/21 documented as of this encounter
--- OUTSIDE RECORDS SUMMARY | 2024-02-03 16:52 | XMS_ITS | Encounter Summary ---
Author Organization [facility] Address [facility] [place] [address] Care Team Providers Care Reshipping Clerk Name Role Phone Juan Dempsey MD Primary Care Provider [phone] Encounter Details Date Type Department Care Team (Latest Contact Info) Description 02/10/2023 Travel Social History Tobacco Use Types Packs/Day [...] [facility] Hematology Oncology [address] [place] [address] 02/16/2024 10:20 AM EDT Hospital [place] [phone] Mitali Griffiths APRN [facility] [place] [address] 02/16/2024 1:30 PM EDT Office Visit Hematology [place] [address] Albino Bartholomew MD [facility] [place] [address] 04/17/2024 10:00 AM EST Office Visit Dermatology at [facility] [address] [place] [address] Oli Winetr MD [address] [facility] [place] [address] documented as of this encounter Visit Diagnoses Not on filedocumented in this encounter Care Teams Reshipping Clerk Relationship Specialty Start Date End Date Juan Dempsye MD [address] [place] [address] PCP - General Emergency Medicine 08/20/21 documented as of this encounter
--- OUTSIDE RECORDS SUMMARY | 2024-02-03 16:52 | XMS_ITS | Encounter Summary ---
Author Organization [facility] Address [facility] [place] [address] Care Team Providers Care Signs And Displays Salesperson Name Role Phone Juan Dempsey MD Primary Care Provider [phone] Reason for Visit * Reason Comments Specialty Refill Management cabometyx Encounter Details Date Type Department Care Team (Late st Contact Info) Description 04/14/2023 Specialty [place] [phone] Marci Angel, [facility] Social History Tobacco Use Types Packs/Day Years [...] this encounter Progress Notes * Marci Angel - 04/14/2023 2:32 PM EST Clinical Management Plan: Refill Specialty Pharmacy Consultation; Marci Angel Comprehensive Medication Management (CMM) Cristofer Stevensnaida Mr. Cristofer Tenorio is a 68 y.o. (1955) male who was contacted in regard to a specialty medication refill reminder. Contact made with patient regarding Cabometyx. A review of the medication therapy was performed. The medication was refilled as scheduled, and all medication related questions and concerns were addressed. The specialty pharmacy staff will follow up with the patient 5-7 days prior to next refill. Was a change made to the Care Plan: No Allergies and Drug intolerance: Allergies Allergen Reactions Grass Pollen-Orchardgrass, Standard Peanut Medication Reconciliation Discrepancies (compared to [facility] med list) No Specialty Pharmacy Refill Questionnaire More data exists 04/14/2023 Refill Questionnaire What is the name of the specialty medication you are refilling? cabometyx Are you taking any new medications? No Any new medical condition? No Any new allergies? No Any new side effects that are bothersome? No What date will you need this fill by? 04/28/2023 Adherence: Any missed doses? No Patient understands no changes to current drug regimen were made. Marci Angel 04/14/23 2:36 PM documented in this encounter Plan of Treatment Upcoming Encounters Date Type Department Care Team (Late st Contact Info) Description 02/16/2024 9:15 AM EDT Laboratory Appointment Lab at [facility] Hematology Oncology [address] [place] [address] 02/16/2024 10:20 AM EDT Hospital Encounter CT Scan at [place] [phone] Mitali Griffiths APRN [facility] [place] [address] 02/16/2024 1:30 PM EDT Office Visit Hematology and Oncology at [place] [phone] Albino Bartholomew MD [facility] [place] [address] 04/17/2024 10:00 AM EST Office Visit Dermatology at [facility] [address] [place] [address] Oli Winter MD [address] [facility] [place] [address] documented as of this encounter Visit Diagnoses Not on filedocumented in this encounter Care Teams Signs And Displays Salesperson Relationship Specialty Start Date End Date Juan Dempsey MD [address] [place] [address] PCP - General Emergency Medicine 08/20/21 documented as of this encounter
--- OUTSIDE RECORDS SUMMARY | 2024-02-03 16:52 | XMS_ITS | Encounter Summary ---
Author Organization [facility] Address [facility] [place] [address] Care Team Providers Care Territory Sales Representative Name Role Phone Juan Dempsey MD Primary Care Provider [phone] Encounter Details Date Type Department Care Team (Latest Contact Info) Description 03/10/2023 Travel Social History Tobacco Use Types Packs/Day [...] 9:15 AM EDT Laboratory Appointment Lab at [facility] Hematology Oncology [address] [place] [address] 02/16/2024 10:20 AM EDT Hospital [place] [phone] Mitali Griffiths APRN [facility] [address] [place] [address] 02/16/2024 1:30 PM EDT Office Visit Hematology [place] [address] Albino Bartholomew MD [facility] [address] [place] [address] 04/17/2024 10:00 AM EST Office Visit Dermatology at [facility] [address] [place] [address] Oli Winter MD [address] [facility] [place] [address] documented as of this encounter Visit Diagnoses Not on filedocumented in this encounter Care Teams Territory Sales Representative Relationship Specialty Start Date End Date Juan Dempsey MD [address] [place] [address] PCP - General Emergency Medicine 08/20/21 documented as of this encounter
--- OUTSIDE RECORDS SUMMARY | 2024-02-03 16:52 | XMS_ITS | Encounter Summary ---
Author Organization [facility] Address [facility] [place] [address] Care Team Providers Care Retail Supervisor Name Role Phone Juan Dempsey MD Primary Care Provider [phone] Reason for Visit * Reason Onset Date Comments Diarrhea 04/06/2023 Update from 04/02 . Encounter Details Date Type Department Care Team (Late st Contact Info) Description 04/06/2023 Telephone Hematology [place] [address] Jacquelyn Funes RN Diarrhea (Update from 04/02.) Social History Tobacco Use Types Packs/Day Years [...] encounter Miscellaneous Notes * Telephone Encounter - Jacquelyn Funes RN - 04/06/2023 11:32 AM EST Call to Cristofer; reports he has followed recommendation to hold the cabametyx and follow BRAT diet. Cabometyx he has been off for four days as he takes the medication at night. Diarrhea has continued to be an ongoing issue throughout the night. He reports he is getting up every 2 hours during the night. The first two stools will be somewhat normal then stools following throughout the night become liquid again. Color is now clear to light brown, liquid. No abdominal distention, or pain. Gasey Last liquid stools are about 0830. And then he has nothing throughout the day. No Fever. But does report some chills during the night over the last two days. He has not taken imodium. He thought that he should just see if it is the chemotherapy. He does not I can feel that I am not taking the medication because the neuropathy in my toes is gone and my taste is coming back. Advised patient to continue with BRAT diet and push fluids. Will f/u with Dr. Bartholomew and see what he recommends. In the meantime, advised patient call if he develops severe abdominal pain or go toED. Patient agrees with this plan of care and will wait to hear back from this office. Message from Galina Smith sent at 04/06/2023 8:57 AM EST ----- Regarding: update [phone] - patient called - has been off his Cabametyx and made a dietary change - would like to report his update on his diarrhea documented in this encounter Plan of Treatment Upcoming Encounters Date Type Department Care Team (Late st Contact Info) Description 02/16/2024 9:15 AM EDT Laboratory Appointment Lab at [facility] Hematology Oncology [address] [place] [address] 02/16/2024 10:20 AM EDT Hospital Encounter CT Scan at [place] [phone] Mitali Griffiths APRN [facility] [place] [address] 02/16/2024 1:30 PM EDT Office Visit Hematology [place] [address] Albino Bartholomew MD [facility] [place] [address] 04/17/2024 10:00 AM EST Office Visit Dermatology at [facility] [address] [place] [address] Oli Winter MD [address] [facility] [place] [address] documented as of this encounter Visit Diagnoses Not on filedocumented in this encounter Care Teams Retail Supervisor Relationship Specialty Start Date End Date Juan Dempsey MD [address] [place] [address] PCP - General Emergency Medicine 08/20/21 documented as of this encounter
--- OUTSIDE RECORDS SUMMARY | 2024-02-03 16:52 | XMS_ITS | Encounter Summary ---
Author Organization [facility] Address [facility] [place] [address] Care Team Providers Care Piping Manager Name Role Phone Juan Dempsey MD Primary Care Provider [phone] Reason for Visit * Reason Comments Follow-up Encounter Details Date Type Department Care Team (Late st Contact Info) Description 04/28/2023 3:30 PM EST Office Visit Hematology [place] [phone] Albino Costello MD [facility] [address] [place] [address] Metastatic 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, unspecified laterality; High risk medication use; Abnormal thyroid function test; Autoimmune hepatitis; Multiple lung nodules on CT Social History Tobacco Use Types Packs/Day Years [...] Sign Reading Time Taken Comments Blood Pressure 121/70 04/28/2023 3:22 PM EST Pulse 68 04/28/2023 3:22 PM EST Temperature 36.2 ??C (97.2 ??F) 04/28/2023 3:22 PM ES T Respiratory Rate 18 04/28/2023 3:22 PM EST Oxygen Saturation 100% 04/28/2023 3:22 PM EST Inhaled Oxygen Concentration - - Weight 99 kg (218 lb 4.1 oz) 04/28/2023 3:22 PM EST Height 181.5 cm (5' 11.46) 04/28/2023 3:[address] Body Mass Index 30.05 04/28/2023 3:22 PM EST documented in this encounter Progress Notes * Albino Costello MD - 04/28/2023 3:30 PM EST Images from the original note were not included. [facility] History of Present Illness: Mr. 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 Wt Readings from Last 3 Encounters: 04/28/23 99 kg (218 lb 4.1 oz) 03/17/23 97.9 kg (215 lb 13.3 oz) 02/22/23 96.6 kg (213 lb) ECOG PS: 0 General: NAD, pleasant, well-appearing [...] Conversant, normal mood and affect. Vitals: BP 121/70 (Patient Position: Sitting) Pulse 68 Temp 36.2 ??C (97.2 ??F) (Temporal) Resp 18 Ht 181.5 cm (5' 11.46) Wt 99 kg (218 lb 4.1 oz) SpO2 100% BMI 30.05 kg/m?? Lab results: Recent Results (from the past 24 hour(s)) T4, free Result Value Ref Range Free T4 1.57 0.93 - 1.70 ng/dL TSH Result Value Ref Range TSH 2.59 0.27 - 4.20 mcIU/mL Comprehensive metabolic panel (non-fasting) Result Value Ref Range Glucose Lvl 92 65 - 199 mg/dL BUN 23 (H) 10 - 20 mg/dL Creatinine 1.81 (H) 0.80 - 1.50 mg/dL Sodium 142 135 - 145 mmol/L Potassium 4.2 3.5 - 5.0 mmol/L Chloride 105 98 - 107 mmol/L CO2 27 22 - 31 mmol/L Anion Gap 10 5 - 15 mmol/L Calcium 9.1 8.5 - 10.5 mg/dL Total Protein 6.5 6.1 - 8.0 g/dL Albumin 4.1 3.2 - 5.2 g/dL AST 40 (H) 0 - 39 unit/L ALT 61 (H) 0 - 55 unit/L Alk Phos 127 40 - 130 unit/L Total Bilirubin 0.3 0.2 - 1.3 mg/dL Estimated GFR 40 (L) >=60 mL/min/1.73 m?? Hemogram Result Value Ref Range WBC 7.2 4.0 - 9.5 x10(3)/mcL RBC 4.29 (L) 4.58 - 5.54 x10(6)/mcL Hemoglobin 13.6 (L) 13.7 - 16.5 g/dL Hematocrit 40.4 (L) 40.5 - 48.5 % MCV 94.2 (H) 82.9 - 93.1 fL MCH 31.7 27.5 - 32.1 pg MCHC 33.7 32.0 - 35.7 g/dL Platelets 201 145 - 357 x10(3)/mcL RDWSD 47.8 (H) 36.0 - 45.0 fL RDWCV 13.9 (H) 11.4 - 13.8 % MPV 9.6 7.6 - 12.9 fL nRBC % Auto 0.0 % nRBC Abs Auto 0.000 0.000 - 0.000 x10(3)/mcL Differential, Automated Result Value Ref Range Neutrophils % 65.7 % Neutr Abs (ANC) 4.70 1.70 - 6.10 x10(3)/mcL Lymphocytes % 22.1 % Lymphocytes Abs 1.6 0.9 - 3.2 x10(3)/mcL Monocytes % 5.6 % Monocyte Abs 0.4 0.3 - 0.9 x10(3)/mcL Eosinophils % 5.2 % Eosinophils Abs 0.4 0.0 - 0.4 x10(3)/mcL Basophils % 1.3 % Basophils Abs 0.1 0.0 - 0.1 x10(3)/mcL Immature Gran % 0.10 % Roro Gran Abs 0.01 0.00 - 0.04 x10(3)/mcL Bilirubin, Direct Result [...] taper. Pt prefers to get labs at [facility]. We'll send orders and I'll ask our plug shaper hand to f/u on results. Advised pt [...] Cabometyx with minimal side effects. Follows with sleeve setter Dr. Pringle, with plans to taper him [...] with CT scan in about 2 months #Hypothyroid: TSH and free T4 are within normal range. Continue levothyroxine 75 mcg a day We will increase levothyroxine to 75 mcg a day, TSH is still elevated. TSH slightly elevated. T4 wnl. Continue levothyroxine [...] 20 mg a day -Next visit with MD with CBC, CMP, TSH, free T4 I 5 weeks Mr. Tenorio asked appropriate questions and verbalized good understanding of and agreement with the plan. I encouraged him to call anytime with questions or concerns and he agreed. ALBINO COSTELLO MD Oncology documented in this encounter Plan of Treatment Upcoming Encounters Date Type Department Care Team (Late st Contact Info) Description 02/16/2024 9:15 AM EDT Laboratory Appointment Lab at [facility] Hematology Oncology [address] [place] [address] 02/16/2024 10:20 AM EDT Hospital Encounter CT Scan at [place] [phone] Mitali Griffiths APRN [facility] [address] [place] [address] 02/16/2024 1:30 PM EDT Office Visit Hematology [place] [address] Albino Costello MD [facility] [place] [address] 04/17/2024 10:00 AM EST Office Visit Dermatology at [facility] [address] [place] [address] Oli Winter MD [address] [facility] [place] [address] documented as of this encounter Visit Diagnoses Diagnosis Metastatic 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, unspecified laterality High risk medication use Encounter for long-term (current) use of other medications Abnormal thyroid function test Nonspecific abnormal results of thyroid function study Autoimmune hepatitis Multiple lung nodules on CT documented in this encounter Care Teams Piping Manager Relationship Specialty Start Date End Date Juan Dempsey MD [address] [place] [address] PCP - General Emergency Medicine 08/20/21 documented as of this encounter
--- OUTSIDE RECORDS SUMMARY | 2024-02-03 16:52 | XMS_ITS | Encounter Summary ---
Author Organization [facility] Address [facility] [place] [address] Care Team Providers Care Human Projectile Name Role Phone Juan Dempsey MD Primary Care Provider [phone] Reason for Visit * Reason Comments Medication Management Encounter Details Date Type Department Care Team (Late st Contact Info) Description 02/10/2023 Specialty [place] [phone] Dawn Steen, [facility] Social History Tobacco Use Types Packs/Day Years [...] as of this encounter Progress Notes * Dawn Muse [facility] - 02/10/2023 2:49 PM EDT Clinical Management Plan: Refill Specialty Pharmacy Consultation; Dawn Muse [facility] Comprehensive Medication Management (CMM) Cristofer Stevensnaida Mr. Cristofer Tenorio is a 67 y.o. (1955) male who was contacted in [...] Standard Peanut Medication Reconciliation Discrepancies (compared to [facility] med list) No Specialty Pharmacy Refill Questionnaire More data exists 02/10/2023 Refill Questionnaire What is the name of the specialty medication you are refilling? Cabometyx Are you taking any new medications? No Any new medical condition? No Any new allergies? No Any new side effects that are bothersome? No What date will you need this fill by? 02/18/2023 Adherence: Any missed doses? No Patient understands no changes to current drug regimen were made. Dawn Muse [facility] 02/10/23 2:55 PM Specialty Pharmacy Consultation; Dawn Muse [facility] Comprehensive Medication Management (CMM): Specialty Consult, Intervention Cristofer Tenorio Summary: When speaking with Cristofer about his refill for Cabometyx, he expressed that he is still experiencinga bitter taste with food. He states that drinking milk prior to eating food helps recover his taste. Encouraged to keep doing what works for him. He states that the taste does not reduce his appetite. Dawn Muse Constance 02/10/23 2:55 PM documented in this encounter Plan of Treatment Upcoming Encounters Date Type Department Care Team (Late st Contact Info) Description 02/16/2024 9:15 AM EDT Laboratory Appointment Lab at [facility] Hematology Oncology [address] [place] [address] 02/16/2024 10:20 AM EDT Hospital [place] [phone] Mitali Griffiths APRN [facility] HEMATOLOGY [place] [address] 02/16/2024 1:30 PM EDT Office Visit Hematology [place] [address] Albino Bartholomew MD [facility] HEMATOLOGY [place] [address] 04/17/2024 10:00 AM EST Office Visit Dermatology at [facility] [address] [place] [address] Oli Winter MD [address] [facility] [address] documented as of this encounter Visit Diagnoses Not on filedocumented in this encounter Care Teams Human Projectile Relationship Specialty Start Date End Date Juan Dempsey MD [address] [place] [address] PCP - General Emergency Medicine 08/20/21 documented as of this encounter
--- OUTSIDE RECORDS SUMMARY | 2024-02-03 16:52 | XMS_ITS | Encounter Summary ---
Author Organization [facility] Address [facility] [place] [address] Care Team Providers Care Counterintelligence Analyst Name Role Phone Juan Dempsey MD Primary Care Provider [phone] Encounter Details Date Type Department Care Team (Latest Contact Info) Description 04/21/2023 Travel Social History Tobacco Use Types Packs/Day [...] AM EDT Laboratory Appointment Lab [place] [facility] [place] [address] [place] [address] 02/16/2024 10:20 AM EDT Hospital Encounter [place] [phone] Mitali Griffiths APRN [facility] DR HEMATOLOGY [place] [address] 02/16/2024 1:30 PM EDT Office Visit Hematology [place] [address] Albino Bartholomew MD [facility] DR HEMATOLOGY [place] [address] 04/17/2024 10:00 AM EST Office Visit Dermatology at [facility] [address] [place] [address] Oli Winter MD [address] [facility] [place] [address] documented as of this encounter Visit Diagnoses Not on filedocumented in this encounter Care Teams Counterintelligence Analyst Relationship Specialty Start Date End Date Juan Dempsey MD [address] [place] [address] PCP - General Emergency Medicine 08/20/21 documented as of this encounter
--- OUTSIDE RECORDS SUMMARY | 2024-02-03 16:52 | XMS_ITS | Encounter Summary ---
Author Organization [facility] [place] [address] Care Team Providers Care Laborer [employer] Name Role Phone Juan Dempsey MD Primary Care Provider [phone] Reason for Visit * Reason Onset Date Comments Diarrhea 04/02/2023 Encounter Details Date Type Department Care Team (Late st Contact Info) Description 04/02/2023 Telephone Hematology [place] [address] Jacquelyn Funes RN Diarrhea Social History Tobacco Use Types Packs/Day Years [...] Telephone Encounter - Jacquelyn Funes RN - 04/02/2023 12:31 PM EST Call to patient: per Dr. Bartholomew, He can hold cabometyx for 3 days and call us back on Wednesday. I am okay with imodium, but he should not go overboard. Advised. Patient to follow through with BRAT diet as we discussed previously. Drink plenty of liquids. If stools become more liquid or blood noted in stools or if he develops abdominal pain or distentions he could try imodium or getter choice go to ED. He reports he will cut the cabometyx for the 3 days and call on Wednesday. In the meantime he and his agree to follow BRAT diet, us imodium only if the stools become for problematic. They will call on Wednesday. TRIAGE CALL Message received from racing secretary and handicapper: Received call from pt, transferred by racing secretary and handicapper who identified pt's name/ and provided MRN to RN. Diagnosis/current treatment: Caller: Cristofer Identified via name and : Yes Symptom Review per conversation with caller: Cristofer reporting he has had diarrhea consistently every time he eats for the last 2.5 days now. Lastnight he start have episode of diarrhea during the night as well. Prior to last night he was havingepisode every time he ate. The diarrhea is liquid, brown ordor is his normal. No pain, no abdominaldistention or cramping. No blood. He denies fever, Nausea or vomiting, no chills. He states he is eating well and drinking plenty of fluids. No abdominal pain just gurgling when I am going to have diarrhea. He has not been around anyone who is sick although he was at his PCP for check up and RSV shot last week. Advised BRAT diet and imodium. He states he has never had to take imodium in the past Dr. Bartholomewwould hold his oral chemotherapy for a few days and he would be good. So, I will f/u with Dr. Bartholomew and be sure imodium would be the best approach or if he wants the patient to hold treatment to see if the issue resolves. I will call the patient with providers recommendation. Patient verbalizeshe will wait for the recommendation before he does anything but will start BRAT diet. He was also eating a lot of fruit. Plan of Care and actions for worsening condition per discussion with patient will wait to hear backfrom this office on imodium vs hold med. He will call this office or go to ED if he develops worsening diarrhea, pain or blood is noted in his stools. , /MILL PLATFORM SUPERVISOR/Telephone Triage for Oncology Nurses, 3rd Edition, ON[place]ex[place] and [place], 2019/TelephoneTriage Protocols for Nurses 6th Edition, Maryanne Otero/ [facility] Standard Practice: Pt/responsible caregiver able to read back and verbalize understanding of plan and intention to comply with plan/disposition: Yes Pt/responsible caregiver able to verbalize understanding of and intention to call clinic with any new or worsening signs or symptoms: yes Follow up needed? yes If yes, outline: hold medication vs continue medication with imodium and BRAT diet. This note was written or modified using Present voice recognition software. The final note was screened for mistakes. Please excuse any remaining errors. documented in this encounter Plan of Treatment Upcoming Encounters Date Type Department Care Team (Late st Contact Info) Description 02/16/2024 9:15 AM EDT Laboratory Appointment Lab at [facility] Hematology Oncology [address] [place] [address] 02/16/2024 10:20 AM EDT Hospital [place] [phone] Mitali Griffiths APRN [facility] DR HEMATOLOGY [place] [address] 02/16/2024 1:30 PM EDT Office Visit [place]ematology [place] [phone] Ablino Bartholomew MD [facility] DR HEMATOLOGY [place] [address] 04/17/2024 10:00 AM EST Office Visit Dermatology at [facility] [address] [place] [address] Oli Winter MD [address] [facility] [place] [address] documented as of this encounter Visit Diagnoses Not on filedocumented in this encounter Care Teams Laborer [employer]er [employer] Relationship Specialty Start Date End Date Juan Dempsey MD [address] [place] [address] PCP - General Emergency Medicine 08/20/21 documented as of this encounter
--- OUTSIDE RECORDS SUMMARY | 2024-02-03 16:52 | XMS_ITS | Encounter Summary ---
Author Organization [facility] Address [facility] [place] [address] Care Team Providers Care Anesthesia Technician Name Role Phone Juan Dempsey MD Primary Care Provider [phone] Encounter Details Date Type Department Care Team (Latest Contact Info) Description 01/13/2023 Travel Social History Tobacco Use Types Packs/Day [...] AM EDT Laboratory Appointment Lab at [facility] Hematology Oncology [address] [place] [address] 02/16/2024 10:20 AM EDT Hospital [place] [phone] Mitali Griffiths APRN [facility] [address] [place] [address] 02/16/2024 1:30 PM EDT Office Visit Hematology [place] [address] Albino Bartholomew MD [facility] DR [place] [address] 04/17/2024 10:00 AM EST Office Visit Dermatology at [facility] [address] [place] [address] Oli Winter MD [address] [facility] [place] [address] documented as of this encounter Visit Diagnoses Not on filedocumented in this encounter Care Teams Anesthesia Technician Relationship Specialty Start Date End Date Juan Dempsey MD [address] [place] [address] PCP - General Emergency Medicine 08/20/21 documented as of this encounter
--- OUTSIDE RECORDS SUMMARY | 2024-02-03 16:52 | XMS_ITS | Encounter Summary ---
Author Organization [facility] Address [facility] [place] [address] Care Team Providers Care Bathroom Tiling Professional Name Role Phone Juan Dempsey MD Primary Care Provider [phone] Reason for Visit * Reason Comments Medication Refill Encounter Details Date Type Department Care Team (Late st Contact Info) Description 05/19/2023 Specialty [place] [phone] Tru Prakash, [facility] Social History Tobacco Use Types [...] this encounter Progress Notes * Tru Prakash [facility] - 05/19/2023 2:51 PM EST Clinical Management Plan: Refill Specialty Pharmacy Consultation; Tru Prakash [facility] Comprehensive Medication Management (CMM) Cristofer Tenorio is [...] made to the Care Plan: yes - med held for about a week d/t G.I. pain. Pt spoke with provider about this. If yes, should the medication be held: n/a - was held Assessment and Recommendations: Medication Management Type of Medication Management: targeted medication review Referred By: provider Recipient: beneficiary Provider: plan sponsor pharmacist [facility] Time Spent: 1-15 min Method of Contact: by telephone Cognitive Ability: good Cognitive Impairment Status Verified this Year: no Allergies and Drug intolerance: Allergies Allergen Reactions Grass Pollen-Orchardgrass, Standard Peanut Medication Reconciliation Discrepancies (compared to [facility]) -none Specialty Pharmacy Refill Questionnaire More data exists 05/19/2023 Refill Questionnaire What is the name of the specialty medication you are refilling? Cabometyx Are you taking any new medications? No Any new medical condition? No Any new allergies? No Any missed doses since your last fill? 5+ Any new side effects that are bothersome? Yes Please explain suspected G.I. pain What date will you need this fill by? 06/04/2023 Adherence: Specialty Med Adherence Patient Demonstrates Understanding of Importance of Adherence: Yes Educational Information or Adherence Tools Provided: No How many doses does patient have remaining at home?: 17 Patient Reported X Missed Doses in the Last Month: 7 If >0, reason for missed doses: side effect/ADR, instructed by provider to hold or take differently Other reason for missed dose: G.I. pain suspected 2nd to cabometyx, which pt discussed with provider If yes, why?: instructed by provider to hold or take differently Provider-Estimated Medication Adherence Level: 76-89% Adherence Tools Used: calendar, directed education Pt understands no changes to current drug regimen were made at the appointment and that [facility] is providing recommendations (summary located at top of note) for provider review and follow up. Tru Prakash RPH 05/19/23 3:13 PM documented in this encounter Plan of Treatment Upcoming Encounters Date Type Department Care Team (Late st Contact Info) Description 02/16/2024 9:15 AM EDT Laboratory Appointment [place] [facility] [place] [address] [place] [address] 02/16/2024 10:20 AM EDT [place] [address] Mitali Griffiths APRN [facility] DR HEMATOLOGY [place] [address] 02/16/2024 1:30 PM EDT Office Visit Hematology and Oncology at [place] [phone] Albino Bartholomew MD [facility] DR HEMATOLOGY [place] [address] 04/17/2024 10:00 AM EST Office Visit Dermatology at [address] [place] [address] Oli Winter MD [address] [facility] [place] [address] documented as of this encounter Visit Diagnoses Not on filedocumented in this encounter Care Teams Bathroom Tiling Professional Relationship Specialty Start Date End Date Juan Dempsey MD [address] [place] [address] PCP - General Emergency Medicine 08/20/21 documented as of this encounter
--- OUTSIDE RECORDS SUMMARY | 2024-02-03 16:52 | XMS_ITS | Encounter Summary ---
Author Organization [facility] Address [facility] [place] [address] Care Team Providers Care Therapy Technician Name Role Phone Juan Dempsey MD Primary Care Provider [phone] Encounter Details Date Type Department Care Team (Latest Contact Info) Description 05/26/2023 Travel Social History Tobacco Use Types Packs/Day [facility] Oncology [address] [place] [address] 02/16/2024 10:20 AM EDT Hospital [place] [phone] Mitali Griffiths APRN [facility] DR [place] [address] 02/16/2024 1:30 PM EDT Office Visit Hematology [place] [address] Albino Bartholomew MD [facility] DR [place] [address] 04/17/2024 10:00 AM EST Office Visit Dermatology at [facility] [address] [place] [address] Oli Winter MD [address] [facility] [place] [address] documented as of this encounter Visit Diagnoses Not on filedocumented in this encounter Care Teams Therapy Technician Relationship Specialty Start Date End Date Juan Dempsey MD [address] [place] [address] PCP - General Emergency Medicine 08/20/21 documented as of this encounter
--- OUTSIDE RECORDS SUMMARY | 2024-02-03 16:52 | XMS_ITS | Encounter Summary ---
Author Organization [facility] Address [facility] [place] [address] Care Team Providers Care Clerical And Office Support Workers Name Role Phone Juan Dempsey MD Primary Care Provider [phone] Reason for Visit * Reason Comments Follow-up Encounter Details Date Type Department Care Team (Late st Contact Info) Description 03/17/2023 8:00 AM EST Office Visit Hematology [place] [phone] Albino Costello MD [facility] [place] [address] Metastatic 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, unspecified laterality; High risk medication use; Abnormal thyroid function test; Multiple lung nodules on CT; Autoimmune hepatitis Social History Tobacco Use Types [...] Sign Reading Time Taken Comments Blood Pressure 119/74 03/17/2023 8:12 AM EST Pulse 72 03/17/2023 8:12 AM EST Temperature 36.6 ??C (97.9 ??F) 03/17/2023 8:12 AM ES T Respiratory Rate 19 03/17/2023 8:12 AM EST Oxygen Saturation 100% 03/17/2023 8:12 AM EST Inhaled Oxygen Concentration - - Weight 97.9 kg (215 lb 13.3 oz) 03/17/2023 8:12 AM EST Height 181.6 cm (5' 11.5) 03/17/2023 8:12 AM ES T Body Mass Index 29.69 03/17/2023 8:12 AM EST documented in this encounter Progress Notes * Albino Costello MD - 03/17/2023 8:00 AM EST Images from the original note were not included. [facility] History of Present Illness: Mr. Tenorio [...] by his , Emily. He continues to [place], tolerating Cabometyx 20 mg/day with minimal side effects. No new focal complaints. No new pain. No n/v. Bowels regular. He has been off budesonide for more than a months. No rashes. ROS otherwise negative. 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 Wt Readings from Last 3 Encounters: 03/17/23 97.9 kg (215 lb 13.3 oz) 02/22/23 96.6 kg (213 lb) 02/10/23 97 kg (213 lb 13.5 oz) ECOG PS: 0 General: NAD, pleasant, [...] Conversant, normal mood and affect. Vitals: BP 119/74 (Patient Position: Sitting) Pulse 72 Temp 36.6 ??C (97.9 ??F) (Temporal) Resp 19 Ht 181.6 cm (5' 11.5) Wt 97.9 kg (215 lb 13.3 oz) SpO2 100% BMI 29.69 kg/m?? Lab results: Recent Results (from the past 24 hour(s)) T4, free Result Value Ref Range Free T4 1.21 0.93 - 1.70 ng/dL TSH Result Value Ref Range TSH 5.27 (H) 0.27 - 4.20 mcIU/mL Comprehensive metabolic panel (non-fasting) Result Value Ref Range Glucose Lvl 124 65 - 199 mg/dL BUN 15 10 - 20 mg/dL Creatinine 1.49 0.80 - 1.50 mg/dL Sodium 141 135 - 145 mmol/L Potassium 3.6 3.5 - 5.0 mmol/L Chloride 103 98 - 107 mmol/L CO2 27 22 - 31 mmol/L Anion Gap 11 5 - 15 mmol/L Calcium 8.9 8.5 - 10.5 mg/dL Total Protein 6.1 6.1 - 8.0 g/dL Albumin 4.1 3.2 - 5.2 g/dL AST 46 (H) 0 - 39 unit/L ALT 74 (H) 0 - 55 unit/L Alk Phos 123 40 - 130 unit/L Total Bilirubin 0.3 0.2 - 1.3 mg/dL Estimated GFR 51 (L) >=60 mL/min/1.73 m?? Hemogram Result Value Ref Range WBC 7.4 4.0 - 9.5 x10(3)/mcL RBC 4.28 (L) 4.58 - 5.54 x10(6)/mcL Hemoglobin 13.9 13.7 - 16.5 g/dL Hematocrit 41.1 40.5 - 48.5 % MCV 96.0 (H) 82.9 - 93.1 fL MCH 32.5 (H) 27.5 - 32.1 pg MCHC 33.8 32.0 - 35.7 g/dL Platelets 196 145 - 357 x10(3)/mcL RDWSD 49.3 (H) 36.0 - 45.0 fL RDWCV 13.8 11.4 - 13.8 % MPV 9.6 7.6 - 12.9 fL nRBC % Auto 0.0 % nRBC Abs Auto 0.000 0.000 - 0.000 x10(3)/mcL Differential, Automated Result Value Ref Range Neutrophils % 67.8 % Neutr Abs (ANC) 5.01 1.70 - 6.10 x10(3)/mcL Lymphocytes % 20.5 % Lymphocytes Abs 1.5 0.9 - 3.2 x10(3)/mcL Monocytes % 5.6 % Monocyte Abs 0.4 0.3 - 0.9 x10(3)/mcL Eosinophils % 4.6 % Eosinophils Abs 0.3 0.0 - 0.4 x10(3)/mcL Basophils % 1.2 % Basophils Abs 0.1 0.0 - 0.1 x10(3)/mcL Immature Gran % 0.30 % Roro Gran Abs 0.02 0.00 - [...] Lymph Nodes (pN): pN1 Imagin03/16/23 CT CAP: Pending 11/04/22 CT CAP: IMPRESSION 1. No local [...] in the abdomen and pelvis. 10/20/21 CXR ([facility]): 10/16/21: IMPRESSION 1. Unexpected finding: New [...] taper. Pt prefers to get labs at [facility]. We'll send orders and I'll ask our director internal control to f/u on results. Advised pt to [...] in 4-5 weeks w/blood work. 01/13/23 Mr. Tenroio is doing well clinically. He tolerates Cabometyx with minimal side effects. Follows with record producer Dr. Pringle, with plans to taper him [...] will defer steroid management to Dr. Pringle. #Hypothyroid: We will increase levothyroxine to 75 mcg [...] questions or concerns and he agreed. Plan: -Increase levothyroxine to 75 mcg a day -Continue Cabometyx 20 mg a day -Next visit with MD with CBC, CMP, TSH, free T4 on April 28 Mr. Tenorio asked appropriate questions and verbalized good understanding of and agreement with the plan. I encouraged him to call anytime with questions or concerns and he agreed. ALBINO COSTELLO MD Oncology documented in this encounter Plan of Treatment Upcoming Encounters Date Type Department Care Team (Late st Contact Info) Description 02/16/2024 9:15 AM EDT Laboratory Appointment [place] [facility] [place] [address] [place] [address] 02/16/2024 10:20 AM EDT Hospital [place] [address] Mitali Griffiths APRN [facility] [place] [address] 02/16/2024 1:30 PM EDT Office Visit Hematology [place] [address] Albino Costello MD [facility] [place] [address] 04/17/2024 10:00 AM EST Office Visit Dermatology at [address] [place] [phone] Oli Winter MD [address] [facility] [place] [address] documented as of this encounter Visit Diagnoses Diagnosis Metastatic 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, unspecified laterality High risk medication use Encounter for long-term (current) use of other medications Abnormal thyroid function test Nonspecific abnormal results of thyroid function study Multiple lung nodules on CT Autoimmune hepatitis documented in this encounter Care Teams Clerical And Office Support Workers Relationship Specialty Start Date End Date Juan Dempsey MD [address] [place] [address] PCP - General Emergency Medicine 08/20/21 documented as of this encounter
--- OUTSIDE RECORDS SUMMARY | 2024-02-03 16:52 | XMS_ITS | Encounter Summary ---
Author Organization [facility] Address [facility] [place] [address] Care Team Providers Care Sand Mixer Name Role Phone Juan Dempsey MD Primary Care Provider [phone] Encounter Details Date Type Department Care Team (Latest Contact Info) Description 03/15/2023 Travel Social History Tobacco Use Types Packs/Day [...] EDT Laboratory Appointment [place] [facility] [place] [address] [place] [address] 02/16/2024 10:20 AM EDT Hospital [place] [phone] [facility] DR HEMATOLOGY [place] [address] 02/16/2024 1:30 PM EDT Office Visit [place]ology [place] [address] [facility] DR HEMATOLOGY [place] [address] 04/17/2024 10:00 AM EST Office Visit Dermatology at [facility] [address] [place] [address] Oli Winter MD [address] [facility] [place] [address] documented as of this encounter Visit Diagnoses Not on filedocumented in this encounter Care Teams Sand Mixer Relationship Specialty Start Date End Date Juan Dempsey MD [address] [place] [address] PCP - General Emergency Medicine 08/20/21 documented as of this encounter
--- OUTSIDE RECORDS SUMMARY | 2024-02-03 16:52 | XMS_ITS | Encounter Summary ---
Author Organization [facility] Address [facility] [place] [address] Care Team Providers Care Maitre D Name Role Phone Juan Dempsey MD Primary Care Provider [phone] Encounter Details Date Type Department Care Team (Late st Contact Info) Description 01/13/2023 Orders [place] [phone] Judy Gonzalez, RN Autoimmune hepatitis Social History Tobacco Use Types [...] [facility] H[facility] Oncology [address] [place] [address] 02/16/2024 10:20 AM EDT Hospital [place] [phone] Mitali Griffiths APRN [facility] DR HEMATOLOGY [place] [address] 02/16/2024 1:30 PM EDT Office Visit Hematology [place] [address] Albino Bartholomew MD [facility] DR HEMATOLOGY [place] [address] 04/17/2024 10:00 AM EST Office Visit Dermatology at [facility] [address] [place] [phone] Oli Winter MD [address] [facility] [address] documented as of this encounter Visit Diagnoses Diagnosis Autoimmune hepatitis documented in this encounter Care Teams Maitre D Relationship Specialty Start Date End Date Juan Dempsey MD [address] [place] [address] PCP - General Emergency Medicine 08/20/21 documented as of this encounter
--- OUTSIDE RECORDS SUMMARY | 2024-02-03 16:52 | XMS_ITS | Encounter Summary ---
Author Organization [facility] [place] [address] Care Team Providers Care Buckle Attacher Name Role Phone Juan Dempsey MD Primary Care Provider [phone] Encounter Details Date Type Department Care Team (Latest Contact Info) Description 02/10/2023 9:00 AM EDT - 02/10/2023 11:59 PM EDT Hospital Encounter [place]ology [place] [phone] Metastatic 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, unspecified laterality; High risk medication use; Abnormal thyroid function test; Autoimmune hepatitis Discharge Disposition: Home Social History Tobacco Use [...] Take 100 mg by mouth daily. 04/11/2019 budesonide EC (Entocort EC) [address] - ER capsuleIndications:Aut oimmune hepatitis Take 1 capsule by mouth every morning. 60 capsule 3 01/13/2023 03/01/2023 levothyroxine (Synthroid) 50 mcg tablet Take 1 tablet by mouth daily. 30 tablet 3 12/07/2022 03/17/2023 cabozantinib (Cabometyx) 20 mg tabletIndications:fatmata l cell [...] 9:15 AM EDT Laboratory Appointment Lab at [facility] Hematology Oncology [address] [place] [address] 02/16/2024 10:20 AM EDT Hospital Encounter CT Scan at [place] [phone] Mitali Griffiths APRN [facility] DR [place]ATOLOGY [place] [address] 02/16/2024 1:30 PM EDT Office Visit Hematology [place] [phone] Albino Bartholomew MD [facility] DR [place] [address] 04/17/2024 10:00 AM EST Office Visit Dermatology at [facility] [address] [place] [address] Oli Winter MD [address] [facility] [place] [address] Scheduled Orders Name Type Priority Associated Diagnoses Orde r Schedule CBC (with Diff) Lab Routine Metastatic 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, unspecified laterality 1 Occurrences starting 02/10/2023 until 02/10/2023 documented as of this encounter Procedures Procedure Name Priority Date/Time Associated Diagnosis Comments BILIRUBIN, DIRECT Routine 02/10/2023 9:1 1 AM EDT HEMOGRAM Routine 02/10/2023 9:11 AM EDT Metastatic 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, unspecified laterality DIFFERENTIAL, AUTOMATED Routine 02/10/2023 9:11 AM EDT Metastatic 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, unspecified laterality CBC (WITH DIFF) Routine 02/10/2023 9:11 AM EDT Metastatic 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, unspecified laterality TSH Routine 02/10/2023 9:11 AM EDT Metastatic 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, unspecified laterality High risk medication use Abnormal thyroid function test T4, FREE Routine 02/10/2023 9:11 AM EDT Metastatic 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, unspecified laterality High risk medication use Abnormal thyroid function test COMPREHENSIVE METABOLIC PANEL Routine 02/10/2023 9:11 AM EDT Metastatic 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, unspecified laterality documented in this encounter Results * Bilirubin, Direct (02/10/2023 9:11 AM EDT) Bilirubin, Direct 0.1 0.0 - 0.3 mg/dL [facility] Blood 02/10/2023 9:11 AM EDT 02/10/2023 9:18 AM EDT Ana Pringle MD CHEMISTRY ORDERABLES [facility] [place] [address] * (ABNORMAL) Differential, Automated (02/10/2023 9:11 AM EDT) Neutrophil % 74.8 % [facility] Neutrophil Absolute 7.11(H) 1.70 - 6.10 x10(3)/mc L [facility] Lymph % 17.5 % [facility] Lymphocytes Abs 1.7 0.9 - 3.2 x10(3)/mc L [facility] Monocyte % 4.6 % [facility] Monocyte Abs 0.4 0.3 - 0.9 x10(3)/mc L [facility] Eos % 1.9 % [facility] Eosinophils Abs 0.2 0.0 - 0.4 x10(3)/mc L [facility] Basophil % 0.8 % [facility] Baso Absolute 0.1 0.0 - 0.1 x10(3)/ L [facility] Immature Gran % 0.40 % [facility] Comment: Immature granulocytes(IG's)percentage and absolute count will include metamyelocytes, myelocytes, and promyelocytes. Blood smears from CBCs yielding IG's will be scanned manually for concordance. If this scan disagrees with the automated IG or if promyelocytes are noted, a manual differential will be performed. Immature Gran Absolute 0.04 0.00 - 0.04 x10(3)/ L [facility] Blood 02/10/2023 9:11 AM EDT 02/10/2023 9:18 AM EDT Albino Bartholomew MD HEMATOLOGY ORDERABLE S Performing Organization Address City/State/[facility] Co de Phone Number [facility] [place] [address] * (ABNORMAL) Hemogram (02/10/2023 9:11 AM EDT) White Blood Cell 9.5 4.0 - 9.5 x10(3)/ L [facility] Red Blood Cell 4.25(L) 4.58 - 5.54 x10(6)/[facility] Hemoglobin 13.9 13.7 - 16.5 g/dL [facility] Hematocrit 41.3 40.5 - 48.5 % [facility] Mean Cell Volume 97.2(H) 82.9 - 93.1 fL [facility] Mean Cell Hemoglobin 32.7(H) 27.5 - 32.1 pg [facility] Mean Cell Hemoglobin Concentration 33.7 32.0 - 35.7 g/dL [facility] Platelet 193 145 - 357 x10(3)/mc L [facility] RDW Standard Deviation 54.6(H) 36.0 - 45.0 fL [facility] RDW coefficient of variation 15.5(H) 11.4 - 13.8 % [facility] Mean Platelet Volume 9.8 7.6 - 12.9 fL [facility] NRBC% auto 0.0 % [facility] NRBC Absolute 0.000 0.000 - 0.000 x10(3)/mc L [facility] Blood 02/10/2023 9:11 AM EDT 02/10/2023 9:18 AM EDT Albino Bartholomew MD HEMATOLOGY ORDERABLE S [facility] [place] [address] * (ABNORMAL) Comprehensive metabolic panel (non-fasting) (02/10/2023 9:11 AM EDT) Glucose 93 65 - 199 mg/dL [facility] Comment:Diabetes: >=200 mg/d L plus symptoms Blood Urea Nitrogen 24(H) 10 - 20 mg/dL [facility] Creatinine 1.44 0.80 - 1.50 mg/dL [facility] Sodium 142 135 - 145 mmol/L [facility] Potassium 3.6 3.5 - 5.0 mmol/L [facility] Comment: Please note: ??Patients with WBC >100,000 may have falsely elevated Potassium levels. ??For accurate Potassium quantification in these patients send serum separator tube (gold top) for subsequent determinations. ??Contact the Clinical Chemistry Laboratory if there are any questions. Chloride 105 98 - 107 mmol/L [facility] Carbon Dioxide 29 22 - 31 mmol/L [facility] Anion Gap 8 5 - 15 mmol/L [facility] Calcium 9.2 8.5 - 10.5 mg/dL [facility] Protein, Total 6.2 6.1 - 8.0 g/dL [facility] Albumin 4.0 3.2 - 5.2 g/dL [facility] Aspartate Aminotransferase 30 0 - 39 unit/L [facility] Alanine Aminotransferase 38 0 - 55 unit/L [facility] Alkaline Phosphatase 106 40 - 130 unit/L [facility] Bilirubin, Total 0.4 0.2 - 1.3 mg/dL [facility] Est Glomerular Filtration Rate 53(L) >=60 mL/min/1. 73 m?? [facility] Comment: This patient's estimated GFR was [...] and symptoms in addition to eGFR. Blood 02/10/2023 9:11 AM EDT 02/10/2023 9:18 AM EDT Albino Bartholomew MD CHEMISTRY ORDERABLES Performing Organization Address City/[facility]/ZIP Co de Phone Number [facility] [place] [address] * (ABNORMAL) TSH (02/10/2023 9:11 AM EDT) Thyroid Stimulating Hormone 6.10(H) 0.27 - 4.20 mcIU/mL [facility] Comment: Reference Interval (mcIU/mL): Females: ??First Trimester: 0.23-3.88 ??Second Trimester: 0.22-3.90 ??Third Trimester: 0.44-4.66 Blood 02/10/2023 9:11 AM EDT 02/10/2023 9:18 AM EDT Albino Bartholomew MD CHEMISTRY ORDERABLES [facility] [place] [address] * T4, free (02/10/2023 9:11 AM EDT) Free T4 1.43 0.93 - 1.70 ng/dL [facility] Comment: Reference Interval (ng/dL): Females: ??First Trimester: 0.97-1.68 ??Second Trimester: 0.77-1.51 ??Third Trimester: 0.77-1.49 Blood 02/10/2023 9:11 AM EDT 02/10/2023 9:18 AM EDT Albino Bartholomew MD CHEMISTRY ORDERABLES Performing Organization Address City/State/[facility] Co de Phone Number [facility] [place] [address] documented in this encounter Visit Diagnoses Diagnosis Metastatic 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, unspecified laterality High risk medication use Encounter for long-term (current) use of other medications Abnormal thyroid function test Nonspecific abnormal results of thyroid function study Autoimmune hepatitis documented in this encounter Care Teams Buckle Attacher Relationship Specialty Start Date End Date Juan Dempsey MD [address] [place] [address] PCP - General Emergency Medicine 08/20/21 documented as of this encounter
--- OUTSIDE RECORDS SUMMARY | 2024-02-03 16:52 | XMS_ITS | Encounter Summary ---
Author Organization [facility] [address] Care Team Providers Care Tire Manager Name Role Phone Juan Dempsey MD Primary Care Provider [phone] Reason for Referral * Diagnostic Test (Routine) - Closed Specialty Diagnoses / Procedures Referred By Contac t Referred To Contact Radiology Diagnoses Metastatic 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, unspecified laterality Multiple lung nodules on CT Procedures CT Chest Abdomen Pelvis w Contrast (Generic) Albino Bartholomew MD [facility] [place] [address] [facility] [place] [address] Referral ID Status Reason Start Date Expiration Date V isits Requested Visits Authorized [id number] Closed Specialty Service Requested 02/22/2023 08/23/2024 1 1 Reason for Visit * Diagnostic Test (Routine) - Closed Specialty Diagnoses / Procedures Referred By Contac t Referred To Contact Radiology Diagnoses Metastatic 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, unspecified laterality Multiple lung nodules on CT Procedures CT Chest Abdomen Pelvis w Contrast (Generic) Albino Bartholomew MD [facility] [place] [address] [facility] [place] [address] Referral ID Status Reason Start Date Expiration Date V isits Requested Visits Authorized [id number] Closed Specialty Service Requested 02/22/2023 08/23/2024 1 1 Encounter Details Date Type Department Care Team (Latest Contact Info) Description 03/16/2023 12:45 PM EST - 03/16/2023 1:21 PM EST Hospital Encounter CT Scan at [facility] [place] [address] Albino Bartholomew MD [facility] [place] [address] Metastatic 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, unspecified laterality; Multiple lung nodules on CT Discharge Disposition: Home Social History Tobacco Use [...] mg by mouth daily. 04/11/2019 levothyroxine (Synthroid) 50 mcg tablet Take 1 [...] 9:15 AM EDT Laboratory Appointment Lab at [facility] Hematology Oncology [address] [place] [address] 02/16/2024 10:20 AM EDT Hospital [place] [phone] Mitali Griffiths APRN [facility] [address] [place] [address] 02/16/2024 1:30 PM EDT Office Visit Hematology [place] [phone] Albino Bartholomew MD [facility] [address] [place] [address] 04/17/2024 10:00 AM EST Office Visit Dermatology at [facility] [address] [place] [phone] Oli Winter MD [address] [facility] [place] [address] documented as of this encounter Procedures Procedure Name Priority Date/Time Associated Diagnosis Comments CT CHEST ABDOMEN PELVIS W CONTRAST (GENERIC) Routine 03/16/2023 2:38 PM EST Metastatic 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, unspecified laterality Multiple lung nodules on CT documented in this encounter Results * CT [...] who have questions please contact the health overnight caregiver that requested your imaging first. ? Narrative [...] be a cyst, pseudocyst, or sidebranch IPMN. [id number] MRI is recommended versus attention on planned follow-up studies. Thank you for letting us participate in the care of this patient. If youare a health care provider and have any questions regarding this report,please contact the number below. For patients who have questions please contactthe health overnight caregiver that requested your imaging first. Albino Bartholomew MD IM CT ORDERABLES documented in this encounter Visit Diagnoses Diagnosis Metastatic 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, unspecified laterality Multiple lung nodules on CT documented in this encounter Administered Medications Inactive Administered Medications - up to 3 most recent administrations Medication Order MAR Action Action Date Dose Rate Site iodixanoL (Visipaque) (320 mg/mL) injection solution 0-200 mL 0-200 mL, Intravenous, ONCE PRN, 1 dose, Starting on Wed03/16/23 at 1438, Until Wed03/16/23 at 1439, Per Protocol, Radiology Contrast, Routine Given 03/16/2023 2:39 PM EST 131 mLs iohexoL (Omnipaque) (350 mg/mL) solution 0-50 mL 0-50 mL, Oral, ONCE PRN, 1 dose, Starting on Wed03/16/23 at 1438, Until Wed03/16/23 at 1230, Per Protocol, Warning Vesicant/Irritant Medication , Radiology Contrast, Routine Given 03/16/2023 12:30 PM EST 50 mLs documented in this encounter Care Teams Tire Manager Relationship Specialty Start Date End Date Juan Dempsey MD [address] [place] [address] PCP - General Emergency Medicine 08/20/21 documented as of this encounter
--- OUTSIDE RECORDS SUMMARY | 2024-02-03 16:52 | XMS_ITS | Encounter Summary ---
Author Organization [facility] Address [facility] [place] [address] Care Team Providers Care Configuration Consultant Name Role Phone Juan Dempsey MD Primary Care Provider [phone] Encounter Details Date Type Department Care Team (Latest Contact Info) Description 03/16/2023 1:22 PM EST - 03/16/2023 11:59 PM EST Hospital Encounter [place]ology [place] [phone] Autoimmune hepatitis; Metastatic 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, unspecified laterality; High risk medication use; Abnormal thyroid function test Discharge Disposition: Home Social History Tobacco Use [...] [facility] Hematology Oncology [address] [place] [address] 02/16/2024 10:20 AM EDT Hospital [place] [phone] Mitali Griffiths APRN [facility] [place] [address] 02/16/2024 1:30 PM EDT Office Visit Hematology [place] [phone] Albino Bartholomew MD [facility] [place] [address] 04/17/2024 10:00 AM EST Office Visit Dermatology at [facility] [address] [place] [address] Oli Winter MD [address] [facility] [place] [address] documented as of this encounter Procedures Procedure Name Priority Date/Time Associated Diagnosis Comments BILIRUBIN, DIRECT Routine 03/16/2023 1:3 3 PM EST HEMOGRAM Routine 03/16/2023 1:33 PM EST Metastatic 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, unspecified laterality DIFFERENTIAL, AUTOMATED Routine 03/16/2023 1:33 PM EST Metastatic 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, unspecified laterality CBC (WITH DIFF) Routine 03/16/2023 1:33 PM EST Metastatic 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, unspecified laterality TSH Routine 03/16/2023 1:33 PM EST Metastatic 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, unspecified laterality High risk medication use Abnormal thyroid function test T4, FREE Routine 03/16/2023 1:33 PM EST Metastatic 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, unspecified laterality High risk medication use Abnormal thyroid function test COMPREHENSIVE METABOLIC PANEL Routine 03/16/2023 1:33 PM EST Metastatic 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, unspecified laterality documented in this encounter Results * Bilirubin, Direct (03/16/2023 1:33 PM EST) Bilirubin, Direct 0.1 0.0 - 0.3 mg/dL [facility] Blood 03/16/2023 1:33 PM EST 03/16/2023 1:47 PM EST Narrative Resulting Agency Comment Spec In Lab Ana Pringle MD CHEMISTRY ORDERABLES Performing Organization Address City/State/[facility] Co de Phone Number [facility] [place] [address] * Differential, Automated (03/16/2023 1:33 PM EST) Pathologist [facility] Neutrophil % 67.8 % [facility] Neutrophil Absolute 5.01 1.70 - 6.10 x10(3)/[facility] LABORATORY Lymph % 20.5 % [facility] Lymphocytes Abs 1.5 0.9 - 3.2 x10(3)/[facility] LABORATORY Monocyte % 5.6 % [facility] Monocyte Abs 0.4 0.3 - 0.9 x10(3)/[facility] LABORATORY Eos % 4.6 % [facility] Eosinophils Abs 0.3 0.0 - 0.4 x10(3)/[facility] LABORATORY Basophil % 1.2 % [facility] Baso Absolute 0.1 0.0 - 0.1 x10(3)/[facility] LABORATORY Immature Gran % 0.30 % [facility] Comment: Immature granulocytes(IG's)percentage and absolute count will include metamyelocytes, myelocytes, and promyelocytes. Blood smears from CBCs yielding IG's will be scanned manually for concordance. If this scan disagrees with the automated IG or if promyelocytes are noted, a manual differential will be performed. Immature Gran Absolute 0.02 0.00 - 0.04 x10(3)/mcL [facility] Blood 03/16/2023 1:33 PM EST 03/16/2023 1:47 PM EST Narrative Resulting Agency Comment Spec In Lab Albino Bartholomew MD HEMATOLOGY ORDERABLE S [facility] [place] [place] [address] * (ABNORMAL) Hemogram (03/16/2023 1:33 PM EST) White Blood Cell 7.4 4.0 - 9.5 x10(3)/mc L [facility] Red Blood Cell 4.28(L) 4.58 - 5.54 x10(6)/mc L [facility] Hemoglobin 13.9 13.7 - 16.5 g/dL [facility] Hematocrit 41.1 40.5 - 48.5 % [facility] Mean Cell Volume 96.0(H) 82.9 - 93.1 fL [facility] Mean Cell Hemoglobin 32.5(H) 27.5 - 32.1 pg [facility] Mean Cell Hemoglobin Concentration 33.8 32.0 - 35.7 g/dL [facility] Platelet 196 145 - 357 x10(3)/mc L [facility] RDW Standard Deviation 49.3(H) 36.0 - 45.0 fL [facility] RDW coefficient of variation 13.8 11.4 - 13.8 % [facility] Mean Platelet Volume 9.6 7.6 - 12.9 fL [facility] NRBC% auto 0.0 % [facility] ITAL LAB[facility]ORY NRBC Absolute 0.000 0.000 - 0.000 x10(3)/mc L [facility] Blood 03/16/2023 1:33 PM EST 03/16/2023 1:47 PM EST Narrative Resulting Agency Comment Spec In Lab Albino Bartholomew MD HEMATOLOGY ORDERABLE S [facility] [address] [place] [address] * (ABNORMAL) Comprehensive metabolic panel (non-fasting) (03/16/2023 1:33 PM EST) Glucose 124 65 - 199 mg/dL [facility] Comment:Diabetes: >=200 mg/d L plus symptoms Blood Urea Nitrogen 15 10 - 20 mg/dL [facility] Creatinine 1.49 0.80 - 1.50 mg/dL [facility] Sodium 141 135 - 145 mmol/L [facility] Potassium 3.6 3.5 - 5.0 mmol/L [facility] Comment: Please note: ??Patients with WBC >100,000 may have falsely elevated Potassium levels. ??For accurate Potassium quantification in these patients send serum separator tube (gold top) for subsequent determinations. ??Contact the Clinical Chemistry Laboratory if there are any questions. Chloride 103 98 - 107 mmol/L [facility] Carbon Dioxide 27 22 - 31 mmol/L [facility] Anion Gap 11 5 - 15 mmol/L [facility] Calcium 8.9 8.5 - 10.5 mg/dL [facility] Protein, Total 6.1 6.1 - 8.0 g/dL [facility] Albumin 4.1 3.2 - 5.2 g/dL [facility] Aspartate Aminotransferase 46(H) 0 - 39 unit/L [facility] Alanine Aminotransferase 74(H) 0 - 55 unit/L [facility] Alkaline Phosphatase 123 40 - 130 unit/L [facility] Bilirubin, Total 0.3 0.2 - 1.3 mg/dL [facility] Est Glomerular Filtration Rate 51(L) >=60 mL/min/1. 73 m?? [facility] Comment: This patient's estimated GFR [...] and symptoms in addition to eGFR. Blood 03/16/2023 1:33 PM EST 03/16/2023 1:47 PM EST Narrative Resulting Agency Comment Spec In Lab Albino Bartholomew MD CHEMISTRY ORDERABLES Performing Organization Address City/[facility] Co de Phone Number [facility] [place] [address] * (ABNORMAL) TSH (03/16/2023 1:33 PM EST) Thyroid Stimulating Hormone 5.27(H) 0.27 - 4.20 mcIU/mL [facility] Comment: Reference Interval (mcIU/mL): Females: ??First Trimester: 0.23-3.88 ??Second Trimester: 0.22-3.90 ??Third Trimester: 0.44-4.66 Blood 03/16/2023 1:33 PM EST 03/16/2023 1:47 PM EST Narrative Resulting Agency Comment Spec In Lab Albino Bartholomew MD CHEMISTRY ORDERABLES Performing Organization Address [facility] Co de Phone Number [facility] [place] [address] * T4, free (03/16/2023 1:33 PM EST) Free T4 1.21 0.93 - 1.70 ng/dL [facility] Comment: Reference Interval (ng/dL): Females: ??First Trimester: 0.97-1.68 ??Second Trimester: 0.77-1.51 ??Third Trimester: 0.77-1.49 Blood 03/16/2023 1:33 PM EST 03/16/2023 1:47 PM EST Narrative Resulting Agency Comment Spec In Lab Albino Bartholomew MD CHEMISTRY ORDERABLES Performing Organization Address City/[facility] Co de Phone Number [facility] [place] [address] documented in this encounter Visit Diagnoses Diagnosis Autoimmune hepatitis Metastatic 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, unspecified laterality High risk medication use Encounter for long-term (current) use of other medications Abnormal thyroid function test Nonspecific abnormal results of thyroid function study documented in this encounter Care Teams Configuration Consultant Relationship Specialty Start Date End Date Juan Dempsey MD [address] [place] [address] PCP - General Emergency Medicine 08/20/21 documented as of this encounter
--- OUTSIDE RECORDS SUMMARY | 2024-02-03 16:52 | XMS_ITS | Encounter Summary ---
Author Organization [facility] Address [facility] [place] [address] Care Team Providers Care Drill Instructor Name Role Phone Juan Dempsey MD Primary Care Provider [phone] Reason for Visit * Reason Comments Specialty Pharmacy Review Cabometyx 20mg tablet Encounter Details Date Type Department Care Team (Late st Contact Info) Description 02/10/2023 Specialty [place] [phone] Kelin Chong, [facility] Social History Tobacco Use Types Packs/Day Years [...] of this encounter Progress Notes * Kelin Chong - 02/10/2023 11:59 PM EDT The [facility] has completed a benefits investigation for Cristofer Tneorio to review their eligibility to fill at [facility]. Per patient's medication list they are prescribedCabometyx 20mg tablet and the medication is currently filled through the [facility] The patient is currently filling the medication through Specialty Pharmacy with a $10.35 copay. PA approved until 2025 documented in this encounter Plan of Treatment Upcoming Encounters Date Type Department Care Team (Late st Contact Info) Description 02/16/2024 9:15 AM EDT Laboratory Appointment Lab at [facility] Hematology Oncology [address] [place] [address] 02/16/2024 10:20 AM EDT [place] [address] Mitali Griffiths APRN [facility] [address] [place] [address] 02/16/2024 1:30 PM EDT Office Visit [place]ology [place] [address] Albino Bartholomew MD [facility] [address] [place] [address] 04/17/2024 10:00 AM EST Office Visit Dermatology at [facility] [address] [place] [address] Oli Winter MD [address] [facility] [place] [address] documented as of this encounter Visit Diagnoses Not on filedocumented in this encounter Care Teams Drill Instructor Relationship Specialty Start Date End Date Juan Dempsey MD [address] [place] [address] PCP - General Emergency Medicine 08/20/21 documented as of this encounter
--- OUTSIDE RECORDS SUMMARY | 2024-02-03 16:52 | XMS_ITS | Encounter Summary ---
Author Organization [facility] Address [facility] [place] [address] Care Team Providers Care Ship Mate Name Role Phone Juan Dempsey MD Primary Care Provider [phone] Encounter Details Date Type Department Care Team (Latest Contact Info) Description 04/28/2023 Travel Social History Tobacco Use Types Packs/Day [...] place to sleep or slept in a fpc (including now)? No 07/09/2021 Sex and Gender Information Value Date Recorded Sex Assigned at Male 05/23/2021 10:26 AM EST Gender Identity Not on file Sexual Orientation Not on file documented as of this encounter Plan of Treatment Upcoming Encounters Date Type Department Care Team (Late st Contact Info) Description 02/16/2024 9:15 AM EDT Laboratory Appointment Lab at [facility] [place]ematology Oncology [address] [place] [address] 02/16/2024 10:20 AM EDT Hospital [place] [phone] Mitali Griffiths APRN [facility] DR HEMATOLOGY [place] [address] 02/16/2024 1:30 PM EDT Office Visit [place] [address] Albino Bartholomew MD [facility] DR HEMATOLOGY [place] [address] 04/17/2024 10:00 AM EST Office Visit Dermatology at [facility] [address] [place] [address] Oli Winter MD [address] [facility] [address] documented as of this encounter Visit Diagnoses Not on filedocumented in this encounter Care Teams Ship Mate Relationship Specialty Start Date End Date Juan Dempsey MD [address] [place] [address] PCP - General Emergency Medicine 08/20/21 documented as of this encounter
--- OUTSIDE RECORDS SUMMARY | 2024-02-03 16:52 | XMS_ITS | Encounter Summary ---
Author Organization [facility] Address [facility] [place] [address] Care Team Providers Care Wireless Architect Name Role Phone Juan Dempsey MD Primary Care Provider [phone] Reason for Visit * Reason Comments Specialty Pharmacy Review Cabometyx 20mg tablet Encounter Details Date Type Department Care Team (Late st Contact Info) Description 03/17/2023 Specialty [place] [phone] Kelin Chong, [facility] Social History Tobacco Use Types [...] place to sleep or slept in a penitentiary (including now)? No 07/09/2021 Sex and Gender Information Value Date Recorded Sex Assigned at Male 05/23/2021 10:26 AM EST Gender Identity Not on file Sexual Orientation Not on file documented as of this encounter Progress Notes * Kelin Chong - 03/17/2023 11:59 PM EST The [facility] has completed a benefits investigation for Cristofer Tenorio to review their eligibility to fill at [facility]. Per patient's medication list they are prescribedCabometyx 20mg tablet and the medication is currently filled through the [facility] The patient is currently filling the medication through Specialty Pharmacy with a $10.35 copay. PA approved until 2025 documented in this encounter Plan of Treatment Upcoming Encounters Date Type Department Care Team (Late st Contact Info) Description 02/16/2024 9:15 AM EDT Laboratory Appointment Lab at [facility] Hematology Oncology [address] [place] [address] 02/16/2024 10:20 AM EDT Hospital [place] [address] Mitali Griffiths APRN [facility] DR [place] [address] 02/16/2024 1:30 PM EDT Office Visit [place]ematology [place] [address] Albino Bartholomew MD [facility] DR [place] [address] 04/17/2024 10:00 AM EST Office Visit Dermatology at [facility] [address] [place] [address] Oli Winter MD [address] [facility] [place] [place] [address] documented as of this encounter Visit Diagnoses Not on filedocumented in this encounter Care Teams Wireless Architect Relationship Specialty Start Date End Date Juan Dempsey MD [address] [place] [address] PCP - General Emergency Medicine 08/20/21 documented as of this encounter
--- OUTSIDE RECORDS SUMMARY | 2024-02-03 16:52 | XMS_ITS | Encounter Summary ---
Author Organization [facility] Address [facility] [place] [address] Care Team Providers Care Account Collector Name Role Phone Juan Dempsey MD Primary Care Provider [phone] Encounter Details Date Type Department Care Team (Late st Contact Info) Description 04/07/2023 Telephone [place]ematology [place] [address] Daxa Arriola RN Social History [...] Telephone Encounter - Daxa Arriola RN - 04/07/2023 10:11 AM EST Message received from clinical alumnae secretary: Cristofer called in regards to restarting his Cabometyx. Did not hear back from Rachell yesterday. Pleasecall [phone] P: Per Albino Bartholomew MD, pt to hold Cabometyx tomorrow. If diarrhea remains resolved, pt may restart Cabometyx on the following day, Wednesday. Pt aware that he may restart without calling office ifhe has no new or worsening symptoms and has had a solid brown bowel movement. Pt advised to call office at with any worsening symptoms or concerns. Pt verbalized understanding and agreem ent with plan. documented in this encounter Plan of Treatment Upcoming Encounters Date Type Department Care Team (Late st Contact Info) Description 02/16/2024 9:15 AM EDT Laboratory Appointment Lab at [facility] Hematology Oncology [address] [place] [address] 02/16/2024 10:20 AM EDT Hospital [place] [address] Mitali Griffiths, MUSIC LIBRARIAN [facility] [place]ATOLOGY [place] [address] 02/16/2024 1:30 PM EDT Office Visit [place]ology [place] [address] Albino Bartholomew MD [facility] [place] [address] 04/17/2024 10:00 AM EST Office Visit Dermatology at [facility] [address] [place] [address] Oli Winter MD [address] [facility] [place] [place] [address] documented as of this encounter Visit Diagnoses Not on filedocumented in this encounter Care Teams Account Collector Relationship Specialty Start Date End Date Juan Dempsey MD [address] [place] [address] PCP - General Emergency Medicine 08/20/21 documented as of this encounter
--- OUTSIDE RECORDS SUMMARY | 2024-02-03 16:52 | XMS_ITS | Encounter Summary ---
Author Organization [facility] Address [facility] [place] [address] Care Team Providers Care Mobile Home Laborer Name Role Phone Juan Dempsey MD Primary Care Provider [phone] Encounter Details Date Type Department Care Team (Latest Contact Info) Description 06/02/2023 11:59 AM EST - 06/02/2023 11:59 PM EST Hospital Encounter [place] [phone] Metastatic 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, unspecified [...] [facility] [place] On[place] [address] [place] [address] 02/16/2024 10:20 AM EDT Hospital [place] [phone] Mitali Griffiths APRN [facility] DR HEMATOLOGY [place] [address] 02/16/2024 1:30 PM EDT Office Visit [place]ology [place] [phone] Albino Bartholomew MD [facility] DR HEMATOLOGY [place] [address] 04/17/2024 10:00 AM EST Office Visit Dermatology at [facility] [address] [place] [address] Oli Winter MD [address] [facility] [place] [address] documented as of this encounter Procedures Procedure Name Priority Date/Time Associated Diagnosis Comments BILIRUBIN, DIRECT Routine 06/02/2023 12: 12 PM EST HEMOGRAM Routine 06/02/2023 12:12 PM EST Metastatic 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, unspecified laterality DIFFERENTIAL, AUTOMATED Routine 06/02/2023 12:12 PM EST Metastatic 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, unspecified laterality CBC (WITH DIFF) Routine 06/02/2023 12:12 PM EST Metastatic 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, unspecified laterality TSH Routine 06/02/2023 12:12 PM EST Metastatic 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, unspecified laterality High risk medication use Abnormal thyroid function test T4, FREE Routine 06/02/2023 12:12 PM EST Metastatic 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, unspecified laterality High risk medication use Abnormal thyroid function test COMPREHENSIVE METABOLIC PANEL Routine 06/02/2023 12:12 PM EST Metastatic 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, unspecified laterality documented in this encounter Results * Bilirubin, Direct (06/02/2023 12:12 PM EST) Bilirubin, Direct 0.1 0.0 - 0.3 mg/dL [facility] Blood 06/02/2023 12:1 2 PM EST 06/02/2023 12:23 PM EST Narrative Resulting Agency Comment Spec In Lab Ana Pringle MD CHEMISTRY ORDERABLES Performing Organization Address City/State/[facility] Co de Phone Number [facility] [place] [address] * Differential, Automated (06/02/2023 12:12 PM EST) Neutrophil % 71.5 % [facility] Neutrophil Absolute 5.68 1.70 - 6.10 x10(3)/[facility] Lymph % 18.6 % [facility] Lymphocytes Abs 1.5 0.9 - 3.2 x10(3)/[facility] Monocyte % 4.9 % [facility] Monocyte Abs 0.4 0.3 - 0.9 x10(3)/[facility] Eos % 3.3 % [facility] Eosinophils Abs 0.3 0.0 - 0.4 x10(3)/[facility] Basophil % 1.3 % [facility] Baso Absolute 0.1 0.0 - 0.1 x10(3)/[facility] Immature Gran % 0.40 % [facility] Comment: Immature granulocytes(IG's)percentage and absolute count will include metamyelocytes, myelocytes, and promyelocytes. Blood smears from CBCs yielding IG's will be scanned manually for concordance. If this scan disagrees with the automated IG or if promyelocytes are noted, a manual differential will be performed. Immature Gran Absolute 0.03 0.00 - 0.04 x10(3)/mcL [facility] Blood 06/02/2023 12:1 2 PM EST 06/02/2023 12:23 PM EST Narrative Resulting Agency Comment Spec In Lab Albino Bartholomew MD HEMATOLOGY ORDERABLE S [facility] [place] [address] * (ABNORMAL) Hemogram (06/02/2023 12:12 PM EST) White Blood Cell 7.9 4.0 - 9.5 x10(3)/mc L [facility] Red Blood Cell 4.21(L) 4.58 - 5.54 x10(6)/mc L [facility] Hemoglobin 13.1(L) 13.7 - 16.5 g/dL [facility] Hematocrit 39.2(L) 40.5 - 48.5 % [facility] Mean Cell Volume 93.1 82.9 - 93.1 fL [facility] Mean Cell Hemoglobin 31.1 27.5 - 32.1 pg [facility] Mean Cell Hemoglobin Concentration 33.4 32.0 - 35.7 g/dL [facility] Platelet 234 145 - 357 x10(3)/mc L [facility] RDW Standard Deviation 46.1(H) 36.0 - 45.0 fL [facility] RDW coefficient of variation 13.5 11.4 - 13.8 % [facility] Mean Platelet Volume 9.6 7.6 - 12.9 fL [facility] NRBC% auto 0.0 % [facility] NRBC Absolute 0.000 0.000 - 0.000 x10(3)/mc L [facility] Blood 06/02/2023 12:1 2 PM EST 06/02/2023 12:23 PM EST Narrative Resulting Agency Comment Spec In Lab Albino Bartholomew MD HEMATOLOGY ORDERABLE S [facility] [address] [place] [address] * (ABNORMAL) Comprehensive metabolic panel (non-fasting) (06/02/2023 12:12 PM EST) Glucose 112 65 - 199 mg/dL [facility] Comment:Diabetes: >=200 mg/d L plus symptoms Blood Urea Nitrogen 20 10 - 20 mg/dL [facility] Creatinine 1.53(H) 0.80 - 1.50 mg/dL [facility] Sodium 142 135 - 145 mmol/L [facility] Potassium 4.2 3.5 - 5.0 mmol/L [facility] Comment: Please note: ??Patients with WBC >100,000 may have falsely elevated Potassium levels. ??For accurate Potassium quantification in these patients send serum separator tube (gold top) for subsequent determinations. ??Contact the Clinical Chemistry Laboratory if there are any questions. Chloride 106 98 - 107 mmol/L [facility] Carbon Dioxide 27 22 - 31 mmol/L [facility] Anion Gap 9 5 - 15 mmol/L [facility] Calcium 9.2 8.5 - 10.5 mg/dL [facility] Protein, Total 6.5 6.1 - 8.0 g/dL [facility] Albumin 4.0 3.2 - 5.2 g/dL [facility] Aspartate Aminotransferase 26 0 - 39 unit/L [facility] Alanine Aminotransferase 28 0 - 55 unit/L [facility] Alkaline Phosphatase 124 40 - 130 unit/L [facility] Bilirubin, Total 0.3 0.2 - 1.3 mg/dL [facility] Est Glomerular Filtration Rate 49(L) >=60 mL/min/1. 73 m?? [facility] Comment: This patient's estimated [...] and symptoms in addition to eGFR. Blood 06/02/2023 12:1 2 PM EST 06/02/2023 12:23 PM EST Narrative Resulting Agency Comment Spec In Lab Albino Bartholomew MD CHEMISTRY ORDERABLES Performing Organization Address City/[facility] Co de Phone Number [facility] [place] [address] * TSH (06/02/2023 12:12 PM EST) Thyroid Stimulating Hormone 2.83 0.27 - 4.20 mcIU/mL [facility] Comment: Reference Interval (mcIU/mL): Females: ??First Trimester: 0.23-3.88 ??Second Trimester: 0.22-3.90 ??Third Trimester: 0.44-4.66 Blood 06/02/2023 12:1 2 PM EST 06/02/2023 12:23 PM EST Narrative Resulting Agency Comment Spec In Lab Albino Bartholomew MD CHEMISTRY ORDERABLES Performing Organization Address [facility] Co de Phone Number [facility] [place] [address] * T4, free (06/02/2023 12:12 PM EST) Free T4 1.64 0.93 - 1.70 ng/dL [facility] Comment: Reference Interval (ng/dL): Females: ??First Trimester: 0.97-1.68 ??Second Trimester: 0.77-1.51 ??Third Trimester: 0.77-1.49 Blood 06/02/2023 12:1 2 PM EST 06/02/2023 12:23 PM EST Narrative Resulting Agency Comment Spec In Lab Albino Bartholomew MD CHEMISTRY ORDERABLES Performing Organization Address [facility] Co de Phone Number [facility] [place] [address] documented in this encounter Visit Diagnoses Diagnosis Metastatic 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, unspecified laterality High risk medication use Encounter for long-term (current) use of other medications Abnormal thyroid function test Nonspecific abnormal results of thyroid function study Autoimmune hepatitis documented in this encounter Care Teams Mobile Home Laborer Relationship Specialty Start Date End Date Juan Dempsey MD [address] [place] [address] PCP - General Emergency Medicine 08/20/21 documented as of this encounter
--- OUTSIDE RECORDS SUMMARY | 2024-02-03 16:52 | XMS_ITS | Encounter Summary ---
Author Organization [facility] Address [facility] [place] [address] Care Team Providers Care Food Equipment Service Technician Name Role Phone Juan Dempsey MD Primary Care Provider [phone] Reason for Visit * Reason Comments Specialty Refill Management Encounter Details Date Type Department Care Team (Late st Contact Info) Description 03/11/2023 Specialty [place] [phone] Reshma Gar, [facility] Social History Tobacco Use Types Packs/Day [...] as of this encounter Progress Notes * Reshma Gar [facility] - 03/11/2023 4:17 PM EST Clinical Management Plan: Refill Specialty Pharmacy Consultation; Reshma Gar [facility] Comprehensive Medication Management (CMM) Cristofer Stevensnaida Mr. Cristofer Tenorio is a 68 y.o. (1955) male who was contacted in regard to a specialty medication refill reminder. Contact made with patient regarding cabozantinib. A review of the medicationtherapy was performed. The medication was refilled as scheduled, and all medication related questions and concerns were addressed. The specialty pharmacy staff will follow up with the patient 5-7 days prior to next refill. Was a change made to the Care Plan: No Allergies and Drug intolerance: Allergies Allergen Reactions Grass Pollen-Orchardgrass, Standard Peanut Medication Reconciliation Discrepancies (compared to [facility] med list) No Specialty Pharmacy Refill Questionnaire More data exists 03/11/2023 Refill Questionnaire What is the name of the specialty medication you are refilling? cabozantinib Are you taking any new medications? No Any new medical condition? No Any new allergies? No Any new side effects that are bothersome? No What date will you need this fill by? 03/19/2023 Adherence: Any missed doses? No Patient understands no changes to current drug regimen were made. Reshma Gar [facility] 03/11/23 4:21 PM documented in this encounter Plan of Treatment Upcoming Encounters Date Type Department Care Team (Late st Contact Info) Description 02/16/2024 9:15 AM EDT Laboratory Appointment Lab at [facility] Hematology Oncology [address] [place] [address] 02/16/2024 10:20 AM EDT Hospital Encounter CT Scan at [place] [phone] Mitali Griffiths APRN [facility] [place] [address] 02/16/2024 1:30 PM EDT Office Visit Hematology and Oncology at [place] [phone] Albino Bartholomew MD [facility] [place] [address] 04/17/2024 10:00 AM EST Office Visit Dermatology at [facility] [address] [place] [phone] Oli Winter MD [address] [facility] [place] [place] [address] documented as of this encounter Visit Diagnoses Not on filedocumented in this encounter Care Teams Food Equipment Service Technician Relationship Specialty Start Date End Date Juan Dempsey MD [address] [place] [address] PCP - General Emergency Medicine 08/20/21 documented as of this encounter
--- OUTSIDE RECORDS SUMMARY | 2024-02-03 16:52 | XMS_ITS | Encounter Summary ---
Author Organization [facility] Address [facility] [place] [address] Care Team Providers Care Combination Saw Operator Name Role Phone Juan Dempsey MD Primary Care Provider [phone] Encounter Details Date Type Department Care Team (Latest Contact Info) Description 04/28/2023 1:42 PM EST - 04/28/2023 11:59 PM EST Hospital Encounter [place] [phone] Metastatic 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, unspecified [...] 9:15 AM EDT Laboratory Appointment Lab at [facility] [place] On[place] [address] [place] [address] 02/16/2024 10:20 AM EDT Hospital [place] [phone] Mitali Griffiths APRN [facility] [place] [address] 02/16/2024 1:30 PM EDT Office Visit [place]ology [place] [phone] Albino Bartholomew MD [facility] [place] [address] 04/17/2024 10:00 AM EST Office Visit Dermatology at [facility] [address] [place] [address] Oli Winter MD [address] [facility] [place] [address] documented as of this encounter Procedures Procedure Name Priority Date/Time Associated Diagnosis Comments BILIRUBIN, DIRECT Routine 04/28/2023 1:4 7 PM EST HEMOGRAM Routine 04/28/2023 1:47 PM EST Metastatic 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, unspecified laterality DIFFERENTIAL, AUTOMATED Routine 04/28/2023 1:47 PM EST Metastatic 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, unspecified laterality CBC (WITH DIFF) Routine 04/28/2023 1:47 PM EST Metastatic 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, unspecified laterality TSH Routine 04/28/2023 1:47 PM EST Metastatic 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, unspecified laterality High risk medication use Abnormal thyroid function test T4, FREE Routine 04/28/2023 1:47 PM EST Metastatic 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, unspecified laterality High risk medication use Abnormal thyroid function test COMPREHENSIVE METABOLIC PANEL Routine 04/28/2023 1:47 PM EST Metastatic 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, unspecified laterality documented in this encounter Results * Bilirubin, Direct (04/28/2023 1:47 PM EST) Bilirubin, Direct 0.1 0.0 - 0.3 mg/dL [facility] Blood 04/28/2023 1:47 PM EST 04/28/2023 1:53 PM EST Narrative Resulting Agency Comment Spec In Lab Ana Pringle MD CHEMISTRY ORDERABLES Performing Organization Address City/State/[facility] Co de Phone Number [facility] [place] [address] * Differential, Automated (04/28/2023 1:47 PM EST) Neutrophil % 65.7 % [facility] Neutrophil Absolute 4.70 1.70 - 6.10 x10(3)/[facility] LAB[facility]AT[facility] Lymph % 22.1 % [facility] Lymphocytes Abs 1.6 0.9 - 3.2 x10(3)/[facility] Monocyte % 5.6 % [facility] Monocyte Abs 0.4 0.3 - 0.9 x10(3)/[facility] Eos % 5.2 % [facility] Eosinophils Abs 0.4 0.0 - 0.4 x10(3)/[facility] Basophil % 1.3 % [facility] Baso Absolute 0.1 0.0 - 0.1 x10(3)/[facility] Immature Gran % 0.10 % [facility] Comment: Immature granulocytes(IG's)percentage and absolute count will include metamyelocytes, myelocytes, and promyelocytes. Blood smears from CBCs yielding IG's will be scanned manually for concordance. If this scan disagrees with the automated IG or if promyelocytes are noted, a manual differential will be performed. Immature Gran Absolute 0.01 0.00 - 0.04 x10(3)/mcL [facility] Blood 04/28/2023 1:47 PM EST 04/28/2023 1:53 PM EST Narrative Resulting Agency Comment Spec In Lab Albino Bartholomew MD HEMATOLOGY ORDERABLE S [facility] [place] [address] * (ABNORMAL) Hemogram (04/28/2023 1:47 PM EST) White Blood Cell 7.2 4.0 - 9.5 x10(3)/mc L [facility] Red Blood Cell 4.29(L) 4.58 - 5.54 x10(6)/mc L [facility] Hemoglobin 13.6(L) 13.7 - 16.5 g/dL [facility] Hematocrit 40.4(L) 40.5 - 48.5 % [facility] Mean Cell Volume 94.2(H) 82.9 - 93.1 fL [facility] Mean Cell Hemoglobin 31.7 27.5 - 32.1 pg [facility] Mean Cell Hemoglobin Concentration 33.7 32.0 - 35.7 g/dL [facility] Platelet 201 145 - 357 x10(3)/mc L [facility] RDW Standard Deviation 47.8(H) 36.0 - 45.0 fL [facility] RDW coefficient of variation 13.9(H) 11.4 - 13.8 % [facility] Mean Platelet Volume 9.6 7.6 - 12.9 fL [facility] NRBC% auto 0.0 % [facility] NRBC Absolute 0.000 0.000 - 0.000 x10(3)/mc L [facility] Blood 04/28/2023 1:47 PM EST 04/28/2023 1:53 PM EST Narrative Resulting Agency Comment Spec In Lab Albino Bartholomew MD HEMATOLOGY ORDERABLE S [facility] [address] * (ABNORMAL) Comprehensive metabolic panel (non-fasting) (04/28/2023 1:47 PM EST) Glucose 92 65 - 199 mg/dL [facility] Comment:Diabetes: >=200 mg/d L plus symptoms Blood Urea Nitrogen 23(H) 10 - 20 mg/dL [facility] Creatinine 1.81(H) 0.80 - 1.50 mg/dL [facility] Sodium 142 135 - 145 mmol/L [facility] Potassium 4.2 3.5 - 5.0 mmol/L [facility] Comment: Please note: ??Patients with WBC >100,000 may have falsely elevated Potassium levels. ??For accurate Potassium quantification in these patients send serum separator tube (gold top) for subsequent determinations. ??Contact the Clinical Chemistry Laboratory if there are any questions. Chloride 105 98 - 107 mmol/L [facility] Carbon Dioxide 27 22 - 31 mmol/L [facility] Anion Gap 10 5 - 15 mmol/L [facility] Calcium 9.1 8.5 - 10.5 mg/dL [facility] Protein, Total 6.5 6.1 - 8.0 g/dL [facility] Albumin 4.1 3.2 - 5.2 g/dL [facility] Aspartate Aminotransferase 40(H) 0 - 39 unit/L [facility] Alanine Aminotransferase 61(H) 0 - 55 unit/L [facility] Alkaline Phosphatase 127 40 - 130 unit/L [facility] Bilirubin, Total 0.3 0.2 - 1.3 mg/dL [facility] Est Glomerular Filtration Rate 40(L) >=60 mL/min/1. 73 m?? [facility] Comment: This patient's estimated GFR [...] and symptoms in addition to eGFR. Blood 04/28/2023 1:47 PM EST 04/28/2023 1:53 PM EST Narrative Resulting Agency Comment Spec In Lab Albino Bartholomew MD CHEMISTRY ORDERABLES Performing Organization Address [facility] Co de Phone Number [facility] [address] * TSH (04/28/2023 1:47 PM EST) Thyroid Stimulating Hormone 2.59 0.27 - 4.20 mcIU/mL [facility] Comment: Reference Interval (mcIU/mL): Females: ??First Trimester: 0.23-3.88 ??Second Trimester: 0.22-3.90 ??Third Trimester: 0.44-4.66 Blood 04/28/2023 1:47 PM EST 04/28/2023 1:53 PM EST Narrative Resulting Agency Comment Spec In Lab Albino Bartholomew MD CHEMISTRY ORDERABLES Performing Organization Address [facility] de Phone Number [facility] [place] [address] * T4, free (04/28/2023 1:47 PM EST) Free T4 1.57 0.93 - 1.70 ng/dL [facility] Comment: Reference Interval (ng/dL): Females: ??First Trimester: 0.97-1.68 ??Second Trimester: 0.77-1.51 ??Third Trimester: 0.77-1.49 Blood 04/28/2023 1:47 PM EST 04/28/2023 1:53 PM EST Narrative Resulting Agency Comment Spec In Lab Albino Bartholomew MD CHEMISTRY ORDERABLES Performing Organization Address [facility] Co de Phone Number [facility] [place] [address] documented in this encounter Visit Diagnoses Diagnosis Metastatic 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, unspecified laterality High risk medication use Encounter for long-term (current) use of other medications Abnormal thyroid function test Nonspecific abnormal results of thyroid function study Autoimmune hepatitis documented in this encounter Care Teams Combination Saw Operator Relationship Specialty Start Date End Date Juan Dempsey MD [address] [place] [address] PCP - General Emergency Medicine 08/20/21 documented as of this encounter
--- OUTSIDE RECORDS SUMMARY | 2024-02-03 16:52 | XMS_ITS | Encounter Summary ---
Author Organization Pending [facility] To [facility] Address [facility] [place] [address] Care Team Providers Care Second Cook And Baker Name Role Phone Juan Dempsey MD Primary Care Provider [phone] Encounter Details Date Type Department Care Team (Late st Contact Info) Description 04/06/2023 Telephone Hematology [place] [phone] Radha Yanes MD [facility] DR HEMATOLOGY/[place] [address] Social History Tobacco Use Types Packs/Day Years [...] as of this encounter Progress Notes * Radha Yanes MD - 04/06/2023 6:16 PM EST I received a page from Mr. Tenorio who is a 68 y.o. man with metastatic clear cell renal carcinoma, currently on reduced dose of Carbometyx at 20mg /day (09/16/2022-present). He reported watery diarrhea since 04/02/2023, every 2 hours daily, he was assessed by the shearing supervisor. [place] this could be carbometyx related, hence per Dr. Bartholomew, to hold Carbometyx for 3 days, meanwhile with diet modification -BRAT diet. Mr. Marroquin called to check in if he's ok to continue holding/resuming Carbometyx today. This is day 5 of holding Carbometyx. He reported that last diarrhea was this morning, and felt better. Denied abdominal pain or fevers. Assessment and Recommendation: # Watery diarrhea, Carbometyx-related, and cannot rule out viral gastroenteritis-resolving # Metastatic Clear cell renal carcinoma on Carometyx Reassuring that diarrhea had improved while Carbometyx on hold. Hence would recommend hold the dosetonight, and resume tomorrowt o be confirmed by Dr. Bartholomew. the temporal association of diarrhearesolution and carbometyx on held could also be explained by the nature course of viral gastroenteritis. Cc'd triage and Dr. [place] Yanes MD Hematology/ Medical Oncology Fellow [facility] [place] Page #[phone] documented in this encounter Plan of Treatment Upcoming Encounters Date Type Department Care Team (Late st Contact Info) Description 02/16/2024 9:15 AM EDT Laboratory Appointment Lab at [facility] [place] Hematology Oncology [address] [place] [address] 02/16/2024 10:20 AM EDT Hospital Encounter CT Scan at [place] [phone] Mitali Griffiths APRN [facility] [place] [address] 02/16/2024 1:30 PM EDT Office Visit Hematology and Oncology at [place] [phone] Albino Bartholomew MD [facility] [place] [address] 04/17/2024 10:00 AM EST Office Visit Dermatology at [facility] [address] [place] [address] Oli Winter MD [address] [place] [address] documented as of this encounter Visit Diagnoses Not on filedocumented in this encounter Care Teams Second Cook And Baker Relationship Specialty Start Date End Date Juan Dempsey MD [address] [place] [address] PCP - General Emergency Medicine 08/20/21 documented as of this encounter
--- OUTSIDE RECORDS SUMMARY | 2024-02-03 16:53 | XMS_ITS | Encounter Summary ---
Author Organization [facility] Address [facility] [place] [address] Care Team Providers Care Cross Tie Turner Name Role Phone Juan Dempsey MD Primary Care Provider [phone] Reason for Visit * Reason Onset Date Comments Medication Refill 11/23/2022 Encounter Details Date Type Department Care Team (Late st Contact Info) Description 11/23/2022 Refill [place]ology [place] [address] Ana Pringle MD [facility] [place] [address] Autoimmune hepatitis Social History Tobacco Use Types [...] [facility] Hematology Oncology [address] [place] [address] 02/16/2024 10:20 AM EDT Hospital Encounter [place] [phone] Mitali Griffiths APRN [facility] DR [place] [address] 02/16/2024 1:30 PM EDT Office Visit Hematology [place] [phone] Albino Bartholomew MD [facility] DR [place] [address] 04/17/2024 10:00 AM EST Office Visit Dermatology at [facility] [address] [place] [address] Oli Winter MD [address] [place] [address] documented as of this encounter Visit Diagnoses Diagnosis Autoimmune hepatitis documented in this encounter Care Teams Cross Tie Turner Relationship Specialty Start Date End Date Juan Dempsey MD [address] [place] [address] PCP - General Emergency Medicine 08/20/21 documented as of this encounter
--- OUTSIDE RECORDS SUMMARY | 2024-02-03 16:53 | XMS_ITS | Encounter Summary ---
Author Organization [facility] Address [facility] [place] [address] Care Team Providers Care Climatology Teacher Name Role Phone Juan Dempsey MD Primary Care Provider [phone] Reason for Visit * Reason Comments Follow-up Encounter Details Date Type Department Care Team (Late st Contact Info) Description 11/06/2022 11:30 AM EDT Office Visit Hematology [place] [address] Albino Bartholomew MD [facility] DR [place] [address] Metastatic 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, unspecified laterality; High risk medication use; Abnormal thyroid function test; Autoimmune hepatitis; Elevated LFTs Social History Tobacco Use Types [...] Sign Reading Time Taken Comments Blood Pressure 139/78 11/06/2022 11:23 AM EDT Pulse 75 11/06/2022 11:23 AM EDT Temperature 36.3 ??C (97.3 ??F) 11/06/2022 11:23 AM E DT Respiratory Rate 18 11/06/2022 11:23 AM EDT Oxygen Saturation 97% 11/06/2022 11:23 AM EDT Inhaled Oxygen Concentration - - Weight 95.5 kg (210 lb 8.6 oz) 11/06/2022 11:23 AM EDT Height 180.9 cm (5' 11.22) 11/06/2022 11:23 AM EDT Body Mass Index 29.18 11/06/2022 11:23 AM EDT documented in this encounter Progress Notes * Albino Bartholomew MD - 11/06/2022 11:30 AM EDT Images from the original note were not included. History of Present Illness: Mr. Tenorio is [...] renal cell carcinoma and cabozantinib toxicity check. Overall he is feeling well. He is compliant with Cabometyx and tolerates it well. 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 Tingling in his feet is minimal. Denies any pain. No nausea or vomiting. Patient Active Problem List Diagnosis Code Renal mass N28.89 Renal cell carcinoma C64.9 Medication management Z79.899 PMH, PSH, and current medications reviewed, as documented in the electronic medical record. 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 Wt Readings from Last 3 Encounters: 11/06/22 95.5 kg (210 lb 8.6 oz) 10/20/22 97.5 kg (215 lb) 10/14/22 94.2 kg (207 lb 10.8 oz) ECOG PS: 0 General: NAD, pleasant, [...] Normal range of motion, ambulatory without assist. Extremities: L LE edema (stable). Neurological: Alert & oriented, no focal deficits. Heme: No cervical or supraclavicular adenopathy. Psych: Conversant, normal mood and affect. Vitals: BP 139/78 (Patient Position: Sitting) Pulse 75 Temp 36.3 ??C (97.3 ??F) (Temporal) Resp 18 Ht 180.9 cm (5' 11.22) Wt 95.5 kg (210 lb 8.6 oz) SpO2 97% BMI 29.18 kg/m?? Lab results: Recent Results (from the past 24 hour(s)) Comprehensive metabolic panel (non-fasting) Result Value Ref Range Glucose Lvl 108 65 - 199 mg/dL BUN 21 (H) 10 - 20 mg/dL Creatinine 1.31 0.80 - 1.50 mg/dL Sodium 141 135 - 145 mmol/L Potassium 3.5 3.5 - 5.0 mmol/L Chloride 103 98 - 107 mmol/L CO2 29 22 - 31 mmol/L Anion Gap 9 5 - 15 mmol/L Calcium 8.9 8.5 - 10.5 mg/dL Total Protein 6.6 6.1 - 8.0 g/dL Albumin 4.0 3.2 - 5.2 g/dL AST 37 0 - 39 unit/L ALT 57 (H) 0 - 55 unit/L Alk Phos 107 40 - 130 unit/L Total Bilirubin 0.3 0.2 - 1.3 mg/dL Estimated GFR 60 >=60 mL/min/1.73 m?? TSH Result Value Ref Range TSH 6.47 (H) 0.27 - 4.20 mcIU/mL T4, free Result Value Ref Range Free T4 1.32 0.93 - 1.70 ng/dL Hemogram Result Value Ref Range WBC 8.4 4.0 - 9.5 x10(3)/mcL RBC 4.67 4.58 - 5.54 x10(6)/mcL Hemoglobin 15.2 13.7 - 16.5 g/dL Hematocrit 44.6 40.5 - 48.5 % MCV 95.5 (H) 82.9 - 93.1 fL MCH 32.5 (H) 27.5 - 32.1 pg MCHC 34.1 32.0 - 35.7 g/dL Platelets 164 145 - 357 x10(3)/mcL RDWSD 46.5 (H) 36.0 - 45.0 fL RDWCV 13.2 11.4 - 13.8 % MPV 9.4 7.6 - 12.9 fL nRBC % Auto 0.0 % nRBC Abs Auto 0.000 0.000 - 0.000 x10(3)/mcL Differential, Automated Result Value Ref Range Neutrophils % 70.9 % Neutr Abs (ANC) 5.96 1.70 - 6.10 x10(3)/mcL Lymphocytes % 23.2 % Lymphocytes Abs 2.0 0.9 - 3.2 x10(3)/mcL Monocytes % 3.3 % Monocyte Abs 0.3 0.3 - 0.9 x10(3)/mcL Eosinophils % 1.3 % Eosinophils Abs 0.1 0.0 - 0.4 x10(3)/mcL Basophils % 0.8 % Basophils Abs 0.1 0.0 - 0.1 x10(3)/mcL Immature Gran % 0.50 % Roro Gran Abs 0.04 0.00 - 0.04 x10(3)/mcL Pathology: No new [...] (pT): pT3a Regional Lymph Nodes (pN): pN1 Imagin11/04/22 CT CAP: IMPRESSION 1. No local recurrence [...] in the abdomen and pelvis. 10/20/21 CXR ([facility]): 10/16/21: IMPRESSION 1. Unexpected finding: New 6 [...] taper. Pt prefers to get labs at [facility]. We'll send orders and I'll ask our clinical team manager to f/u on results. Advised pt to [...] back in 4-5 weeks with blood work. #Elevated TSH: TSH is within normal range. Continue levothyroxine 50 mcg a day. Free T4 is still within normal range, subclinical hypothyroidism?, #I right kidney mass: Hemorrhagic cyst on MRI. Not suspicious for solid tumor.. Concern for possible solid mass arising at the site of prior cyst, versus blood products. We will schedule kidney ultrasound next visit #L LE DVT: continue Eliquis per PCP. 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 He continues monitoring and management with Dr. Pringle, scheduled for f/u visit today. Slight increase of ALT to 60 as of 03/18/22. Uptrending LFTs on 04/29 (AST 103, ALT 266) but now improving on lab work today 05/20. #Genetic testing: [facility] did not reveal any mutation. Mr. Tenorio asked appropriate questions and verbalized good understanding of and agreement with the plan. I encouraged him to call anytime with questions or concerns and he agreed. Plan: - Continue Levothyroxine 50 mcg a day -Continue Cabometyx to 20 mg a day -Next visit CBC, CMP, TSH, free T4 in 4-5 weeks The plan was discussed with patient in details. All questions were answered to patient's satisfaction. documented in this encounter Plan of Treatment Upcoming Encounters Date Type Department Care Team (Late st Contact Info) Description 02/16/2024 9:15 AM EDT Laboratory Appointment Lab at [facility] [place] [address] [place], [place] [id number] 02/16/2024 10:20 AM EDT Hospital [place] [address] [address]i [address]N [facility] DR [place] [address] 02/16/2024 1:30 PM EDT Office Visit Hematology [place] [phone] Albino Bartholomew MD [facility] DR [place] [address] 04/17/2024 10:00 AM EST Office Visit Dermatology at [facility] [address] [place] [address] Oli Winter MD [address] [facility] [place] [address] documented as of this encounter Visit Diagnoses Diagnosis Metastatic 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, unspecified laterality High risk medication use Encounter for long-term (current) use of other medications Abnormal thyroid function test Nonspecific abnormal results of thyroid function study Autoimmune hepatitis Elevated LFTs Other abnormal blood chemistry documented in this encounter Care Teams Climatology Teacher Relationship Specialty Start Date End Date Juan Dempsey MD [address] [place] [address] PCP - General Emergency Medicine 08/20/21 documented as of this encounter
--- OUTSIDE RECORDS SUMMARY | 2024-02-03 16:53 | XMS_ITS | Encounter Summary ---
Author Organization [facility] Address [facility] [place] [address] Care Team Providers Care Gore Inserter Name Role Phone Juan Dempsey MD Primary Care Provider [phone] Encounter Details Date Type Department Care Team (Late st Contact Info) Description 10/12/2022 Specialty [place] [phone] Larry Mckeon, CLIENT RELATIONS SPECIALIST Social History Tobacco Use Types Packs/Day Years [...] place to sleep or slept in a jail (including now)? No 07/09/2021 Sex and Gender Information Value Date Recorded Sex Assigned at Male 05/23/2021 10:26 AM EST Gender Identity Not on file Sexual Orientation Not on file documented as of this encounter Progress Notes * Larry Mckeon - 10/12/2022 10:22 AM EDT Clinical Management Plan: Refill Specialty Pharmacy Consultation; Larry Mckeon Comprehensive Medication Management (CMM) Cristofer Tenorio is a 67 y.o. (1955) [...] Standard Peanut Medication Reconciliation Discrepancies (compared to [facility] med list) No Specialty Pharmacy Refill Questionnaire 10/12/2022 Refill Questionnaire What is the name of the specialty medication you are refilling? Cabometyx Are you taking any new medications? No Any new medical condition? No Any new allergies? No Any new side effects that are bothersome? No What date will you need this fill by? 10/14/2022 Adherence: Any missed doses? No Patient understands no changes to current drug regimen were made. Larry Mckeon 10/12/22 10:23 AM documented in this encounter Plan of Treatment Upcoming Encounters Date Type Department Care Team (Late st Contact Info) Description 02/16/2024 9:15 AM EDT Laboratory Appointment Lab at [facility] Hematology Oncology [address] [place], [place] [id number] 02/16/2024 10:20 AM EDT Hospital [place] [address] Mitali Griffiths APRN [facility] [address] [place] [address] 02/16/2024 1:30 PM EDT Office Visit Hematology and Oncology at [place] [phone] Albino Bartholomew MD [facility] [address] [place]AT[place] [address] 04/17/2024 10:00 AM EST Office Visit Dermatology at [facility] [address] [place] [address] Oli Winter MD [address] [facility] [place] [address] documented as of this encounter Visit Diagnoses Not on filedocumented in this encounter Care Teams Gore Inserter Relationship Specialty Start Date End Date Juan Dempsey MD [address] [place] [address] PCP - General Emergency Medicine 08/20/21 documented as of this encounter
--- OUTSIDE RECORDS SUMMARY | 2024-02-03 16:53 | XMS_ITS | Encounter Summary ---
Author Organization [facility] Address [facility] [place] [address] Care Team Providers Care [employer] Name Role Phone Juan Dempsey MD Primary Care Provider [phone] Reason for Visit * Reason Comments Specialty Refill Management Encounter Details Date Type Department Care Team (Late st Contact Info) Description 11/09/2022 Specialty [place] [phone] Marisabel Soto, AGRI BUSINESS AGENT Social History Tobacco Use Types Packs/Day Years [...] as of this encounter Progress Notes * Marisabel Soto CPHT - 11/09/2022 3:27 PM EDT Clinical Management Plan: Refill Specialty Pharmacy Consultation; Marisabel Soto CPHT Comprehensive Medication Management (CMM) Cristofer Althea Davey Mr. Cristofer Tenorio is a 67 y.o. [...] Standard Peanut Medication Reconciliation Discrepancies (compared to [facility] med list) No Specialty Pharmacy Refill Questionnaire More data exists 11/09/2022 Refill Questionnaire What is the name of the specialty medication you are refilling? Cabometyx Are you taking any new medications? No Any new medical condition? No Any new allergies? No Any new side effects that are bothersome? No What date will you need this fill by? 11/19/2022 Adherence: Any missed doses? No Patient understands no changes to current drug regimen were made. Marisabel Soto CPHT 11/09/22 3:32 PM documented in this encounter Plan of Treatment Upcoming Encounters Date Type Department Care Team (Late st Contact Info) Description 02/16/2024 9:15 AM EDT Laboratory Appointment Lab at [facility] Hematology Oncology [address] [place], [place] [id number] 02/16/2024 10:20 AM EDT Hospital Encounter CT Scan at [place] [phone] Mitali Griffiths APRN [facility] [place] [address] 02/16/2024 1:30 PM EDT Office Visit Hematology and Oncology at [place] [phone] Albino Bartholomew MD [facility] [place] [address] 04/17/2024 10:00 AM EST Office Visit [facility] at [facility] [address] [place] [address] Oli Winter MD [address] [facility] [place] [address] documented as of this encounter Visit Diagnoses Not on filedocumented in this encounter Care Teams [employer] Relationship Specialty Start Date End Date Juan Dempsey MD [address] [place] [address] PCP - General Emergency Medicine 08/20/21 documented as of this encounter
--- OUTSIDE RECORDS SUMMARY | 2024-02-03 16:53 | XMS_ITS | Encounter Summary ---
Author Organization [facility] Address [facility] [place] [address] Care Team Providers Care Precision Lens Centerer And Edger Name Role Phone Juan Dempsey MD Primary Care Provider [phone] Encounter Details Date Type Department Care Team (Late st Contact Info) Description 11/06/2022 2:30 PM EDT Office Visit Dermatology at [facility] [address] [place] [phone] Oli Winter MD [address] [facility] [place] [address] Purpura; Sebaceous hyperplasia; Multiple benign melanocytic nevi of both upper extremities, both lower extremities, and trunk; Family history of melanoma; Lentigines; Rodríguez angioma; SK (seborrheic keratosis) Social History Tobacco Use Types Packs/Day Years [...] Progress Notes * Oli Winter MD - 11/06/2022 2:30 PM EDT Images from the original note were not included. DEPARTMENT OF DERMATOLOGY Medical Dermatology Clinic Provider: Oli Winter MD FAAD at Dermatology at [facility] Patient's preferred name Cristofer Preferred contact method for results [x]Phone: with detailed results? [x]Yes []No []myD-H []Letter PAST MEDICAL HISTORY (if blank, patient denies history) Melanoma - Dysplastic nevi - SCC - BCC - [place] [] cryotherapy [] efudex [] PDT [] Other Relevant Medications [x] Immunosuppression [] Transplant [] Oncogenic medication [] Nicotinamide 500mg po bid Other relevant history Plantar Wart, Left Renal ca hx/ s/p nephrectomy Scalp pruritus FAMILY HISTORY (if blank, patient denies history) Melanoma Brother NMSC - Other relevant history Pancreatic cancer - Brother Breast cancer - mother, sister SOCIAL HISTORY Occupation: retired Last seen 10/28/2021. History of Present Illness: Cristofer Tenorio is 67 y.o. and here for the following: Requests skin cancer screening. Concerned about the following: Bruises and cuts on the arms and legs from banging his arm when working outside. Medications: Reviewed in eD-H Allergies: Reviewed in eD-H Skin Examination Standby:Trena Kohler RN Well developed, well-nourished in no apparent [...] plates, significant for the following. Exam Findings/Assessment/Plan Rosacea Light red patches with telangectasia on the malar cheeks, nose and chin. Follicular pink to red papules and pustules on the central face. Counseled: rosacea and its variants, potential triggers and individual trigger avoidance, treatmentoptions, such as topicals, oral antibiotics, isotretinoin and laser therapy for telangectasias and erythema. Answered all questions. Joint decision to not treat at this time. Recommended CeraVe, Cetaphil, or Amlactin Purpura/Ecchymoses Purple or red ecchymoses on the forearms Patient feels safe at home. Favor benign, age-related eccymoses. Counseled: senile purpura, bruising a/w thinning of the skin that develops with age and sun damage and severity may be exacerbated by blood thinners, such as ASA or coumadin. No treatment necessary. Discussed that discoloration will take weeks to months to resolve. Recommend avoidance of trauma. Answered all questions. Sebaceous Gland Hyperplasia Yellow-hued, cauliflower-like umbilicated papules c/w sebaceous hyperplasia on the face Counseled: benign growths of sebaceous glands (hair follicle unit) that harbor a rare risk of sebaceous carcinoma, and treatment options, including but not limited to topical retin-a, light electrocautery, or laser therapy. Cosmetic treatment and therefore, likely [id number] expense. Handout given. Answered all questions. Patient declines treatment at this time. Return to clinic if changes in color, enlarges, or should bleeding or other symptoms occur. Patientagrees to plan. Nevi Well-demarcated, round or oval, tinajero or [...] symptomatic lesions. Answered all questions. Handout given. Rodríguez Angiomas Rodríguez red papules on the head, trunk, right axilla and extremities Counseled: rodríguez angiomas. Benign. No treatment necessary unless symptoms develop. Treatment considered cosmetic and [id number]. Treatment options, including but not limited to electrocautery, discussed. Handout given. Lentigines Multiple, uniformly tinajero, slightly irregular, polygonal macules c/w lentigos on sun-exposed areas ofskin Benign. Counseled: lentigines, sun damage and spontaneous development, rare risk of lentigo maligna (melanoma arising in a lentigo), sun protection, no treatment necessary but discussed cosmetic options, including topical bleaching agents, as well as chemical peels and lasers. Answered all questions. Handout given. Family History of Skin Cancer [x] Melanoma - confers higher personal skin cancer risk [] NMSC [] Unknown Type Previously discussed genetic testing for BRCA gene mutation, patient elects to have gene testing Recommend regular physical and provider skin examinations. Referral : Genetics Patient Counseled [Skin Cancer] [] History of skin cancer [x] History of immunosuppression [] History of extensive sun exposure [x] Family [...] if changes/symptoms in existing lesions develop. Follow-up: 12 months for a full skin exam. Return sooner as needed for suspicious lesion, new or worsening dermatitis. [x] Recall placed [] Forwarded to rehab therapist [] Patient scheduled before exiting Scribe attestation: Trena Kohler, RN has performed the documentation for this encounter in the presence of and acting as a scribe for Oli Winter MD FAAMichael. I performed the above scribed service and agree with the accuracy of the documentation in this encounter. Reviewed and signed by: MD LEONEL Leal Dermatology [facility] documented in this encounter Plan of Treatment Upcoming Encounters Date Type Department Care Team (Late st Contact Info) Description 02/16/2024 9:15 AM EDT Laboratory Appointment Lab at [facility] Hematology Oncology [address] [place] [address] 02/16/2024 10:20 AM EDT Hospital [place] [phone] Mitali Griffiths APRN [facility] [place] [address] 02/16/2024 1:30 PM EDT Office Visit Hematology [place] [address] Albino Bartholomew MD [facility] [place] [address] 04/17/2024 10:00 AM EST Office Visit Dermatology at [facility] [address] [place] [address] Oli Winter MD [address] [facility] [place] [address] documented as of this encounter Visit Diagnoses Diagnosis Purpura Other nonthrombocytopenic purpuras Sebaceous hyperplasia Other specified disease of sebaceous glands Multiple benign melanocytic nevi of both upper extremities, both lower extremities, and trunk Family history of melanoma Family history of other specified malignant neoplasm Lentigines Other dyschromia Rodríguez angioma Nevus, non-neoplastic SK (seborrheic keratosis) Other seborrheic keratosis documented in this encounter Care Teams [employer] Relationship Specialty Start Date End Date Juan Dempsey MD [address] [place] [address] PCP - General Emergency Medicine 08/20/21 documented as of this encounter
--- OUTSIDE RECORDS SUMMARY | 2024-02-03 16:53 | XMS_ITS | Encounter Summary ---
Author Organization [facility] Address [facility] [place] [address] Care Team Providers Care Criminal Intelligence Analyst Name Role Phone Juan Dempsey MD Primary Care Provider [phone] Encounter Details Date Type Department Care Team (Latest Contact Info) Description 01/13/2023 8:30 AM EDT - 01/13/2023 11:59 PM EDT Hospital Encounter Hematology [place] [phone] Metastatic 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, unspecified [...] [facility] Hematology Oncology [address] [place] [address] 02/16/2024 10:20 AM EDT Hospital Encounter CT Scan at [place] [phone] Mitali Griffiths APRN [facility] [place] [address] 02/16/2024 1:30 PM EDT Office Visit Hematology [place] [address] Albino Bartholomew MD [facility] [address] [place] [address] 04/17/2024 10:00 AM EST Office Visit Dermatology at [facility] [address] [place] [address] Oli Winter MD [address] [facility] [place] [address] documented as of this encounter Procedures Procedure Name Priority Date/Time Associated Diagnosis Comments GOLD TUBE HOLD Routine 01/13/2023 8:55 AM EDT BILIRUBIN, DIRECT Routine 01/13/2023 8:3 0 AM EDT HEMOGRAM Routine 01/13/2023 8:30 AM EDT Metastatic 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, unspecified laterality DIFFERENTIAL, AUTOMATED Routine 01/13/2023 8:30 AM EDT Metastatic 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, unspecified laterality CBC (WITH DIFF) Routine 01/13/2023 8:30 AM EDT Metastatic 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, unspecified laterality TSH Routine 01/13/2023 8:30 AM EDT Metastatic 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, unspecified laterality High risk medication use Abnormal thyroid function test T4, FREE Routine 01/13/2023 8:30 AM EDT Metastatic 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, unspecified laterality High risk medication use Abnormal thyroid function test COMPREHENSIVE METABOLIC PANEL Routine 01/13/2023 8:30 AM EDT Metastatic 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, unspecified laterality documented in this encounter Results * Gold Tube HOLD (01/13/2023 8:55 AM EDT) Pathologist [facility] Gold Hold Sample in lab. [facility] Blood No Charge / Unknown 01/13/2023 8:55 AM EDT 01/13/2023 9:25 AM EDT Ana Pringle MD CHEMISTRY ORDERABLES Performing Organization Address City/[facility] Co de Phone Number [facility] [place] [address] * Bilirubin, Direct (01/13/2023 8:30 AM EDT) Pathologist [facility] Bilirubin, Direct 0.1 0.0 - 0.3 mg/dL [facility] Blood Venous Draw / Unknown 01/13/2023 8:30 AM EDT 01/13/2023 9:04 AM EDT Narrative Resulting Agency Comment Spec In Lab Ana Pringle MD CHEMISTRY ORDERABLES [facility] [place] [address] * Differential, Automated (01/13/2023 8:30 AM EDT) Neutrophil % 63.9 % [facility] Neutrophil Absolute 5.09 1.70 - 6.10 x10(3)/[facility] Lymph % 29.2 % [facility] Lymphocytes Abs 2.3 0.9 - 3.2 x10(3)/[facility] Monocyte % 3.5 % [facility] Monocyte Abs 0.3 0.3 - 0.9 x10(3)/[facility] Eos % 2.0 % [facility] Eosinophils Abs 0.2 0.0 - 0.4 x10(3)/[facility] Basophil % 0.9 % [facility] Baso Absolute 0.1 0.0 - 0.1 x10(3)/[facility] Immature Gran % 0.50 % [facility] Comment: Immature granulocytes(IG's)percentage and absolute count will include metamyelocytes, myelocytes, and promyelocytes. Blood smears from CBCs yielding IG's will be scanned manually for concordance. If this scan disagrees with the automated IG or if promyelocytes are noted, a manual differential will be performed. Immature Gran Absolute 0.04 0.00 - 0.04 x10(3)/[facility] Blood 01/13/2023 8:30 AM EDT 01/13/2023 9:02 AM EDT Narrative Resulting Agency Comment Spec In Lab Albino Bartholomew MD HEMATOLOGY ORDERABLE S Performing Organization Address City/State/[facility] Co de Phone Number [facility] [place] [address] * (ABNORMAL) Hemogram (01/13/2023 8:30 AM EDT) White Blood Cell 8.0 4.0 - 9.5 x10(3)/mc L [facility] Red Blood Cell 4.54(L) 4.58 - 5.54 x10(6)/mc L [facility] Hemoglobin 14.8 13.7 - 16.5 g/dL [facility] Hematocrit 43.4 40.5 - 48.5 % [facility] Mean Cell Volume 95.6(H) 82.9 - 93.1 fL [facility] Mean Cell Hemoglobin 32.6(H) 27.5 - 32.1 pg [facility] Mean Cell Hemoglobin Concentration 34.1 32.0 - 35.7 g/dL [facility] Platelet 189 145 - 357 x10(3)/mc L [facility] RDW Standard Deviation 54.2(H) 36.0 - 45.0 fL [facility] RDW coefficient of variation 15.4(H) 11.4 - 13.8 % [facility] Mean Platelet Volume 9.1 7.6 - 12.9 fL [facility] NRBC% auto 0.0 % [facility] NRBC Absolute 0.000 0.000 - 0.000 x10(3)/ L [facility] Blood 01/13/2023 8:30 AM EDT 01/13/2023 9:02 AM EDT Narrative Resulting Agency Comment Spec In Lab Albino Bartholomew MD HEMATOLOGY ORDERABLE S Performing Organization Address City/State/[facility] Co de Phone Number [facility] [place] [address] * (ABNORMAL) Comprehensive metabolic panel (non-fasting) (01/13/2023 8:30 AM EDT) Glucose 119 65 - 199 mg/dL [facility] Comment:Diabetes: >=200 mg/d L plus symptoms Blood Urea Nitrogen 20 10 - 20 mg/dL [facility] Creatinine 1.40 0.80 - 1.50 mg/dL [facility] Sodium 141 135 - 145 mmol/L [facility] Potassium 3.5 3.5 - 5.0 mmol/L [facility] Comment: Please note: ??Patients with WBC >100,000 may have falsely elevated Potassium levels. ??For accurate Potassium quantification in these patients send serum separator tube (gold top) for subsequent determinations. ??Contact the Clinical Chemistry Laboratory if there are any questions. Chloride 103 98 - 107 mmol/L [facility] Carbon Dioxide 28 22 - 31 mmol/L [facility] Anion Gap 10 5 - 15 mmol/L [facility] Calcium 9.5 8.5 - 10.5 mg/dL [facility] Protein, Total 7.0 6.1 - 8.0 g/dL [facility] Albumin 4.2 3.2 - 5.2 g/dL [facility] Aspartate Aminotransferase 28 0 - 39 unit/L [facility] Alanine Aminotransferase 43 0 - 55 unit/L [facility] Alkaline Phosphatase 103 40 - 130 unit/L [facility] Bilirubin, Total 0.5 0.2 - 1.3 mg/dL [facility] Est Glomerular Filtration Rate 55(L) >=60 mL/min/1. 73 m?? [facility] Comment: This patient's estimated GFR [...] and symptoms in addition to eGFR. Blood 01/13/2023 8:30 AM EDT 01/13/2023 9:02 AM EDT Narrative Resulting Agency Comment Spec In Lab Albino Bartholomew MD CHEMISTRY ORDERABLES Performing Organization Address City/State/[facility] Co de Phone Number [facility] [place] [address] * (ABNORMAL) TSH (01/13/2023 8:30 AM EDT) Thyroid Stimulating Hormone 6.29(H) 0.27 - 4.20 mcIU/mL [facility] Comment: Reference Interval (mcIU/mL): Females: ??First Trimester: 0.23-3.88 ??Second Trimester: 0.22-3.90 ??Third Trimester: 0.44-4.66 Blood 01/13/2023 8:30 AM EDT 01/13/2023 9:02 AM EDT Narrative Resulting Agency Comment Spec In Lab Albino Bartholomew MD CHEMISTRY ORDERABLES Performing Organization Address City/[facility] Co de Phone Number [facility] [place] [address] * T4, free (01/13/2023 8:30 AM EDT) Free T4 1.46 0.93 - 1.70 ng/dL [facility] Comment: Reference Interval (ng/dL): Females: ??First Trimester: 0.97-1.68 ??Second Trimester: 0.77-1.51 ??Third Trimester: 0.77-1.49 Blood 01/13/2023 8:30 AM EDT 01/13/2023 9:02 AM EDT Narrative Resulting Agency Comment Spec In Lab Albino Bartholomew MD CHEMISTRY ORDERABLES Performing Organization Address [facility] Co de Phone Number [facility] [place] [address] documented in this encounter Visit Diagnoses Diagnosis Metastatic 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, unspecified laterality High risk medication use Encounter for long-term (current) use of other medications Abnormal thyroid function test Nonspecific abnormal results of thyroid function study documented in this encounter Care Teams Criminal Intelligence Analyst Relationship Specialty Start Date End Date Juan Dempsey MD [address] [place] [address] PCP - General Emergency Medicine 08/20/21 documented as of this encounter
--- OUTSIDE RECORDS SUMMARY | 2024-02-03 16:53 | XMS_ITS | Encounter Summary ---
Author Organization [facility] Address [facility] [place] [address] Care Team Providers Care Sorter Packer Name Role Phone Juan Dempsey MD Primary Care Provider [phone] Encounter Details Date Type Department Care Team (Late st Contact Info) Description 12/07/2022 Refill Hematology [place] [phone] Daxa Arriola RN Social History Tobacco Use [...] Telephone Encounter - Daxa Arriola RN - 12/07/2022 8:25 AM EDT Message received from clinical medical records secretary: We received a refill request for cristofer. Levothyroxine 50 mcg tablet 50 [facility] [address] [place] [address] P [phone] F [phone] Review of chart suggests it is an appropriate refill. Order pended and routed to Edith Joaquin APRN for approval. documented in this encounter Plan of Treatment Upcoming Encounters Date Type Department Care Team (Late st Contact Info) Description 02/16/2024 9:15 AM EDT Laboratory Appointment Lab at [facility] Hematology Oncology [address] [place] [address] 02/16/2024 10:20 AM EDT Hospital [place] [address] Mitali Griffiths APRN [facility] [place] [address] 02/16/2024 1:30 PM EDT Office Visit Hematology [place] [address] Albino Bartholomew MD [facility] DR [place] [address] 04/17/2024 10:00 AM EST Office Visit Dermatology at [facility] [address] [place] [address] Oli Winter MD [address] [facility] [place] [place] [address] documented as of this encounter Visit Diagnoses Not on filedocumented in this encounter Care Teams Sorter Packer Relationship Specialty Start Date End Date Juan Dempsey MD [address] [place] [address] PCP - General Emergency Medicine 08/20/21 documented as of this encounter
--- OUTSIDE RECORDS SUMMARY | 2024-02-03 16:53 | XMS_ITS | Encounter Summary ---
Author Organization [facility] Address [facility] [place] [address] Care Team Providers Care Program Support Specialist Name Role Phone Juan Dempsey MD Primary Care Provider [phone] Encounter Details Date Type Department Care Team (Latest Contact Info) Description 11/06/2022 9:50 AM EDT - 11/06/2022 11:59 PM EDT Hospital Encounter Hematology [place] [phone] Metastatic 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, unspecified [...] Take 100 mg by mouth daily. 04/11/2019 cabozantinib (Cabometyx) 20 mg tabletIndications:fatmata l cell carcinoma Take 1 tablet (20 mg) by mouth daily. Take on an empty stomach. Call clinic before starting medication. Indications: renal cell carcinoma 30 tablet 11 09/16/2022 08/19/2023 levothyroxine (Synthroid) 50 mcg tablet Take 1 tablet by mouth daily. 30 tablet 3 08/12/2022 12/07/2022 budesonide EC (Entocort EC) 3 mg Capsule, Delayed & Ext.ReleaseIndications :Autoimmune hepatitis Take 2 capsules by mouth every morning. 60 capsule 3 07/27/2022 11/23/2022 potassium chloride SA (Klor-con) 10 mEq Tab Sust.Rel. Particle/Crystal Take 1 tablet by mouth 2 times daily. 60 tablet 1 04/04/2022 08/24/2023 documented as of this encounter Plan of Treatment Upcoming Encounters Date Type Department Care Team (Late st Contact Info) Description 02/16/2024 9:15 AM EDT Laboratory Appointment Lab at [facility] Hematology Oncology [address] [place] [address] 02/16/2024 10:20 AM EDT Hospital Encounter CT Scan at [place] [phone] Mitali Griffiths APRN [facility] DR HEMATOLOGY [place] [address] 02/16/2024 1:30 PM EDT Office Visit Hematology [place] [address] Albino Bartholomew MD [facility] DR HEMATOLOGY [place] [address] 04/17/2024 10:00 AM EST Office Visit Dermatology at [facility] [address] [place] [address] Oli Winter MD [address] [facility] [place] [address] Scheduled Orders Name Type Priority Associated Diagnoses Orde r Schedule Comprehensive metabolic panel (non-fasting) Lab Routine Metastatic 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, unspecified laterality 1 Occurrences starting 11/06/2022 until 11/06/2022 documented as of this encounter Procedures Procedure Name Priority Date/Time Associated Diagnosis Comments HEMOGRAM Routine 11/06/2022 10:00 AM EDT Metastatic 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, unspecified laterality DIFFERENTIAL, AUTOMATED Routine 11/06/2022 10:00 AM EDT Metastatic 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, unspecified laterality CBC (WITH DIFF) Routine 11/06/2022 10:00 AM EDT Metastatic 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, unspecified laterality TSH Routine 11/06/2022 10:00 AM EDT Metastatic 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, unspecified laterality High risk medication use Abnormal thyroid function test T4, FREE Routine 11/06/2022 10:00 AM EDT Metastatic 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, unspecified laterality High risk medication use Abnormal thyroid function test COMPREHENSIVE METABOLIC PANEL Routine 11/06/2022 10:00 AM EDT Metastatic 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, unspecified laterality documented in this encounter Results * Differential, Automated (11/06/2022 10:00 AM EDT) Neutrophil % 70.9 % [facility] Neutrophil Absolute 5.96 1.70 - 6.10 x10(3)/[facility] LABORATORY Lymph % 23.2 % [facility] Lymphocytes Abs 2.0 0.9 - 3.2 x10(3)/[facility] LABORATORY Monocyte % 3.3 % [facility] Monocyte Abs 0.3 0.3 - 0.9 x10(3)/[facility] LABORATORY Eos % 1.3 % [facility] Eosinophils Abs 0.1 0.0 - 0.4 x10(3)/[facility] LABORATORY Basophil % 0.8 % [facility] Baso Absolute 0.1 0.0 - 0.1 x10(3)/[facility] LABORATORY Immature Gran % 0.50 % [facility] Comment: Immature granulocytes(IG's)percentage and absolute count will include metamyelocytes, myelocytes, and promyelocytes. Blood smears from CBCs yielding IG's will be scanned manually for concordance. If this scan disagrees with the automated IG or if promyelocytes are noted, a manual differential will be performed. Immature Gran Absolute 0.04 0.00 - 0.04 x10(3)/[facility] LABORATORY Blood 11/06/2022 10:0 0 AM EDT 11/06/2022 10:11 AM EDT Narrative Resulting Agency Comment Spec In Lab Albino Bartholomew MD HEMATOLOGY ORDERABLE S [facility] [place] [address] * (ABNORMAL) Hemogram (11/06/2022 10:00 AM EDT) White Blood Cell 8.4 4.0 - 9.5 x10(3)/mc L [facility] Red Blood Cell 4.67 4.58 - 5.54 x10(6)/mc L [facility] Hemoglobin 15.2 13.7 - 16.5 g/dL [facility] Hematocrit 44.6 40.5 - 48.5 % [facility] Mean Cell Volume 95.5(H) 82.9 - 93.1 fL [facility] Mean Cell Hemoglobin 32.5(H) 27.5 - 32.1 pg [facility] Mean Cell Hemoglobin Concentration 34.1 32.0 - 35.7 g/dL [facility] Platelet 164 145 - 357 x10(3)/mc L [facility] RDW Standard Deviation 46.5(H) 36.0 - 45.0 fL [facility] RDW coefficient of variation 13.2 11.4 - 13.8 % [facility] Mean Platelet Volume 9.4 7.6 - 12.9 fL [facility] NRBC% auto 0.0 % [facility] NRBC Absolute 0.000 0.000 - 0.000 x10(3)/mc L [facility] Blood 11/06/2022 10:0 0 AM EDT 11/06/2022 10:11 AM EDT Narrative Resulting Agency Comment Spec In Lab Albino Bartholomew MD HEMATOLOGY ORDERABLE S Performing Organization Address City/[facility]/ZIP Co de Phone Number [facility] [place] [address] * T4, free (11/06/2022 10:00 AM EDT) Free T4 1.32 0.93 - 1.70 ng/dL [facility] Comment: Reference Interval (ng/dL): Females: ??First Trimester: 0.97-1.68 ??Second Trimester: 0.77-1.51 ??Third Trimester: 0.77-1.49 Blood 11/06/2022 10:0 0 AM EDT 11/06/2022 10:11 AM EDT Narrative Resulting Agency Comment Spec In Lab Albino Bartholomew MD CHEMISTRY ORDERABLES Performing Organization Address [facility] Co de Phone Number [facility] [place] [address] * (ABNORMAL) TSH (11/06/2022 10:00 AM EDT) Thyroid Stimulating Hormone 6.47(H) 0.27 - 4.20 mcIU/mL [facility] Comment: Reference Interval (mcIU/mL): Females: ??First Trimester: 0.23-3.88 ??Second Trimester: 0.22-3.90 ??Third Trimester: 0.44-4.66 Blood 11/06/2022 10:0 0 AM EDT 11/06/2022 10:11 AM EDT Narrative Resulting Agency Comment Spec In Lab Albino Bartholomew MD CHEMISTRY ORDERABLES Performing Organization Address [facility] Co de Phone Number [facility] [place] [address] * (ABNORMAL) Comprehensive metabolic panel (non-fasting) (11/06/2022 10:00 AM EDT) Glucose 108 65 - 199 mg/dL [facility] Comment:Diabetes: >=200 mg/d L plus symptoms Blood Urea Nitrogen 21(H) 10 - 20 mg/dL [facility] Creatinine 1.31 0.80 - 1.50 mg/dL [facility] Sodium 141 135 - 145 mmol/L [facility] Potassium 3.5 3.5 - 5.0 mmol/L [facility] Comment: Please note: ??Patients with WBC >100,000 may have falsely elevated Potassium levels. ??For accurate Potassium quantification in these patients send serum separator tube (gold top) for subsequent determinations. ??Contact the Clinical Chemistry Laboratory if there are any questions. Chloride 103 98 - 107 mmol/L [facility] Carbon Dioxide 29 22 - 31 mmol/L [facility] Anion Gap 9 5 - 15 mmol/L [facility] Calcium 8.9 8.5 - 10.5 mg/dL [facility] Protein, Total 6.6 6.1 - 8.0 g/dL [facility] Albumin 4.0 3.2 - 5.2 g/dL [facility] Aspartate Aminotransferase 37 0 - 39 unit/L [facility] Alanine Aminotransferase 57(H) 0 - 55 unit/L [facility] Alkaline Phosphatase 107 40 - 130 unit/L [facility] Bilirubin, Total 0.3 0.2 - 1.3 mg/dL [facility] Est Glomerular Filtration Rate 60 >=60 mL/min/1. 73 m?? [facility] Comment: This patient's estimated GFR [...] and symptoms in addition to eGFR. Blood 11/06/2022 10:0 0 AM EDT 11/06/2022 10:11 AM EDT Narrative Resulting Agency Comment Spec In Lab Albino Bartholomew MD CHEMISTRY ORDERABLES [facility] [place] [address] documented in this encounter Visit Diagnoses Diagnosis Metastatic 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, unspecified laterality High risk medication use Encounter for long-term (current) use of other medications Abnormal thyroid function test Nonspecific abnormal results of thyroid function study documented in this encounter Care Teams Program Support Specialist Relationship Specialty Start Date End Date Juan Dempsey MD [address] [place] [address] PCP - General Emergency Medicine 08/20/21 documented as of this encounter
--- OUTSIDE RECORDS SUMMARY | 2024-02-03 16:53 | XMS_ITS | Encounter Summary ---
[place] [address] Care Team Providers Care Cad Librarian Name Role Phone Juan Dempsey MD Primary Care Provider [phone] Encounter Details Date Type Department Care Team (Latest Contact Info) Description 09/16/2022 11:41 AM EDT - 09/16/2022 11:59 PM EDT Hospital Encounter Hematology [place] [phone] Drug-induced liver injury; Metastatic 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, unspecified [...] [facility] Hematology Oncology [address] [place] [address] 02/16/2024 10:20 AM EDT Hospital [place] [phone] Mitali Griffiths APRN [facility] [address] [place] [address] 02/16/2024 1:30 PM EDT Office Visit Hematology [place] [address] Albino Bartholomew MD [facility] [address] [place] [address] 04/17/2024 10:00 AM EST Office Visit Dermatology at 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, unspecified laterality 1 Occurrences starting 09/16/2022 until 09/16/2022 Hepatic Function Panel Lab Routine Autoimmune hepatitis 1 Occurrences starting 09/16/2022 until 09/16/2022 documented as of this encounter Procedures Procedure Name Priority Date/Time Associated Diagnosis Comments BILIRUBIN, DIRECT Routine 09/16/2022 11: 59 AM EDT HEMOGRAM Routine 09/16/2022 11:59 AM EDT Metastatic 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, unspecified laterality DIFFERENTIAL, AUTOMATED Routine 09/16/2022 11:59 AM EDT Metastatic 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, unspecified laterality CBC (WITH DIFF) Routine 09/16/2022 11:59 AM EDT Metastatic 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, unspecified laterality TSH Routine 09/16/2022 11:59 AM EDT Metastatic 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, unspecified laterality High risk medication use Abnormal thyroid function test T4, FREE Routine 09/16/2022 11:59 AM EDT Metastatic 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, unspecified laterality High risk medication use Abnormal thyroid function test COMPREHENSIVE METABOLIC PANEL Routine 09/16/2022 11:59 AM EDT Metastatic 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, unspecified laterality documented in this encounter Results * Bilirubin, Direct (09/16/2022 11:59 AM EDT) Pathologist [facility] Bilirubin, Direct 0.1 0.0 - 0.3 mg/dL [facility] Blood 09/16/2022 11:5 9 AM EDT 09/16/2022 12:13 PM EDT Narrative Resulting Agency Comment Spec In Lab Ana Pringle MD CHEMISTRY ORDERABLES [facility] [place] [address] * Differential, Automated (09/16/2022 11:59 AM EDT) Neutrophil % 66.6 % [facility] Neutrophil Absolute 4.16 1.70 - 6.10 x10(3)/[facility] LABORATORY Lymph % 24.6 % [facility] [place] [facility] Lymphocytes Abs 1.5 0.9 - 3.2 x10(3)/[facility] LABORATORY Monocyte % 4.5 % [facility] Monocyte Abs 0.3 0.3 - 0.9 x10(3)/[facility] LABORATORY Eos % 2.9 % [facility] [place] [facility] Eosinophils Abs 0.2 0.0 - 0.4 x10(3)/[facility] LABORATORY Basophil % 1.1 % [facility] Baso Absolute 0.1 0.0 - 0.1 x10(3)/[facility] LABORATORY Immature Gran % 0.30 % [facility] Comment: Immature granulocytes(IG's)percentage and absolute count will include metamyelocytes, myelocytes, and promyelocytes. Blood smears from CBCs yielding IG's will be scanned manually for concordance. If this scan disagrees with the automated IG or if promyelocytes are noted, a manual differential will be performed. Immature Gran Absolute 0.02 0.00 - 0.04 x10(3)/[facility] LABORATORY Blood 09/16/2022 11:5 9 AM EDT 09/16/2022 12:13 PM EDT Narrative Resulting Agency Comment Spec In Lab Albino Bartholomew MD HEMATOLOGY ORDERABLE S Performing Organization Address City/State/[facility] Co de Phone Number [facility] [address] * (ABNORMAL) Hemogram (09/16/2022 11:59 AM EDT) White Blood Cell 6.2 4.0 - 9.5 x10(3)/mc L [facility] Red Blood Cell 3.87(L) 4.58 - 5.54 x10(6)/mc L [facility] Hemoglobin 13.0(L) 13.7 - 16.5 g/dL [facility] Hematocrit 38.8(L) 40.5 - 48.5 % [facility] Mean Cell Volume 100.3(H) 82.9 - 93.1 fL [facility] Mean Cell Hemoglobin 33.6(H) 27.5 - 32.1 pg [facility] Mean Cell Hemoglobin Concentration 33.5 32.0 - 35.7 g/dL [facility] Platelet 157 145 - 357 x10(3)/mc L [facility] RDW Standard Deviation 51.8(H) 36.0 - 45.0 fL [facility] RDW coefficient of variation 14.0(H) 11.4 - 13.8 % [facility] Mean Platelet Volume 10.0 7.6 - 12.9 fL [facility] NRBC% auto 0.0 % [facility] ITAL LABORATORY NRBC Absolute 0.000 0.000 - 0.000 x10(3)/mc L [facility] Blood 09/16/2022 11:5 9 AM EDT 09/16/2022 12:13 PM EDT Narrative Resulting Agency Comment Spec In Lab Albino Bartholomew MD HEMATOLOGY ORDERABLE S Performing Organization Address City/State/[facility] Co de Phone Number [facility] [address] * (ABNORMAL) Comprehensive metabolic panel (non-fasting) (09/16/2022 11:59 AM EDT) Glucose 100 65 - 199 mg/dL [facility] Comment:Diabetes: >=200 mg/d L plus symptoms Blood Urea Nitrogen 19 10 - 20 mg/dL [facility] Creatinine 1.14 0.80 - 1.50 mg/dL [facility] Sodium 143 135 - 145 mmol/L [facility] Potassium 3.7 3.5 - 5.0 mmol/L [facility] Comment: Please note: ??Patients with WBC >100,000 may have falsely elevated Potassium levels. ??For accurate Potassium quantification in these patients send serum separator tube (gold top) for subsequent determinations. ??Contact the Clinical Chemistry Laboratory if there are any questions. Chloride 106 98 - 107 mmol/L [facility] Carbon Dioxide 30 22 - 31 mmol/L [facility] Anion Gap 7 5 - 15 mmol/L [facility] Calcium 9.0 8.5 - 10.5 mg/dL [facility] Protein, Total 6.3 6.1 - 8.0 g/dL [facility] Albumin 3.9 3.2 - 5.2 g/dL [facility] Aspartate Aminotransferase 79(H) 0 - 39 unit/L [facility] Alanine Aminotransferase 154(H) 0 - 55 unit/L [facility] Alkaline Phosphatase 99 40 - 130 unit/L [facility] Bilirubin, Total 0.3 0.2 - 1.3 mg/dL [facility] Est Glomerular Filtration Rate 70 >=60 mL/min/1. 73 m?? [facility] Comment: This patient's estimated GFR [...] and symptoms in addition to eGFR. Blood 09/16/2022 11:5 9 AM EDT 09/16/2022 12:13 PM EDT Narrative Resulting Agency Comment Spec In Lab Albino Bartholomew MD CHEMISTRY ORDERABLES Performing Organization Address City/[facility] Co de Phone Number [facility] [address] * (ABNORMAL) TSH (09/16/2022 11:59 AM EDT) Thyroid Stimulating Hormone 7.43(H) 0.27 - 4.20 mcIU/mL [facility] Comment: Reference Interval (mcIU/mL): Females: ??First Trimester: 0.23-3.88 ??Second Trimester: 0.22-3.90 ??Third Trimester: 0.44-4.66 Blood 09/16/2022 11:5 9 AM EDT 09/16/2022 12:13 PM EDT Narrative Resulting Agency Comment Spec In Lab Albino Bartholomew MD CHEMISTRY ORDERABLES Performing Organization Address City/[facility]/ZIP Co de Phone Number [facility] [address] * T4, free (09/16/2022 11:59 AM EDT) Free T4 1.30 0.93 - 1.70 ng/dL [facility] Comment: Reference Interval (ng/dL): Females: ??First Trimester: 0.97-1.68 ??Second Trimester: 0.77-1.51 ??Third Trimester: 0.77-1.49 Blood 09/16/2022 11:5 9 AM EDT 09/16/2022 12:13 PM EDT Narrative Resulting Agency Comment Spec In Lab Albino Bartholomew MD CHEMISTRY ORDERABLES [facility] [address] documented in this encounter Visit Diagnoses Diagnosis Drug-induced liver injury Metastatic 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
--- OUTSIDE RECORDS SUMMARY | 2024-02-03 16:53 | XMS_ITS | Encounter Summary ---
Author Organization [facility] Address [facility] [place] [address] Care Team Providers Care Tube Turner Name Role Phone Juan Dempsey MD Primary Care Provider [phone] Encounter Details Date Type Department Care Team (Latest Contact Info) Description 12/01/2022 Travel Social History Tobacco Use Types Packs/Day [...] 9:15 AM EDT Laboratory Appointment Lab at [facility] Hematology Oncology [address] [place] [address] 02/16/2024 10:20 AM EDT Hospital Encounter [place] [phone] Mitali Griffiths APRN [facility] DR HEMATOLOGY [place] [address] 02/16/2024 1:30 PM EDT Office Visit Hematology [place] [address] Albino Bartholomew MD [facility] DR HEMATOLOGY [place] [address] 04/17/2024 10:00 AM EST Office Visit Dermatology at [facility] [address] [place] [address] Oli Winter MD [address] [facility] [address] documented as of this encounter Visit Diagnoses Not on filedocumented in this encounter Care Teams Tube Turner Relationship Specialty Start Date End Date Juan Dempsey MD [address] [place] [address] PCP - General Emergency Medicine 08/20/21 documented as of this encounter
--- OUTSIDE RECORDS SUMMARY | 2024-02-03 16:53 | XMS_ITS | Encounter Summary ---
Author Organization [facility] Address [facility] Michael [facility], [place] [address] Care Team Providers Care Dental Office Manager Name Role Phone Juan Dempsey MD Primary Care Provider [phone] Reason for Referral * Diagnostic Test (Routine) - Closed Specialty Diagnoses / Procedures Referred By Contac t Referred To Contact Radiology Diagnoses Metastatic 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, unspecified laterality Procedures CT Chest Abdomen Pelvis w Contrast (Generic) Albino Bartholomew MD [facility] DR HEMATOLOGY [place] [address] [facility] [place] [address] Referral ID Status Reason Start Date Expiration Date V isits Requested Visits Authorized [id number] Closed Specialty Service Requested 10/14/2022 04/15/2024 1 1 Reason for Visit * Reason Comments Follow-up Follow up with labs Encounter Details Date Type Department Care Team (Late st Contact Info) Description 10/14/2022 1:30 PM EDT Office Visit Hematology [place] [address] Albino Bartholomew MD [facility] [address] HEMATOLOGY [place] [address] Kyle Donohue PA [facility] [address] HEMATOLOGY AND ONCOLOGY [place] [phone] Metastatic 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, unspecified laterality (Primary Dx); Abnormal thyroid function test; Autoimmune hepatitis; High risk medication use Social History Tobacco [...] Sign Reading Time Taken Comments Blood Pressure 156/86 10/14/2022 1:23 PM EDT Pulse 80 10/14/2022 1:23 PM EDT Temperature 36.7 ??C (98.1 ??F) 10/14/2022 1:23 PM ED T Respiratory Rate - - Oxygen Saturation - - Inhaled Oxygen Concentration - - Weight 94.2 kg (207 lb 10.8 oz) 10/14/2022 1:23 PM EDT Height 178.6 cm (5' 10.32) 10/14/2022 1:23 PM E DT Body Mass Index 29.53 10/14/2022 1:23 PM EDT documented in this encounter Progress Notes * Albino Bartholomew MD - 10/14/2022 1:30 PM EDT Images from the original note were not included. History of Present Illness: Mr. Tenorio is a 67 y.o. man referred by Dr. Hou for recently diagnosed [...] renal cell carcinoma and cabozantinib toxicity check. He started to dose reduced Cabometyx about 4 weeks ago. He has significant improvementin the pain. Tingling in his feet is minimal. 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 Wt Readings from Last 3 Encounters: 10/14/22 94.2 kg (207 lb 10.8 oz) 09/16/22 93.5 kg (206 lb 2.1 oz) 08/12/22 93 kg (205 lb 0.4 oz) ECOG PS: 0 General: NAD, pleasant, [...] Conversant, normal mood and affect. Vitals: BP 156/86 (Patient Position: Sitting) Pulse 80 Temp 36.7 ??C (98.1 ??F) (Temporal) Ht178.6 cm (5' 10.32) Wt 94.2 kg (207 lb 10.8 oz) BMI 29.53 kg/m?? Lab results: Recent Results (from the past 24 hour(s)) T4, free Result Value Ref Range Free T4 1.42 0.93 - 1.70 ng/dL TSH Result Value Ref Range TSH 3.13 0.27 - 4.20 mcIU/mL Comprehensive metabolic panel (non-fasting) Result Value Ref Range Glucose Lvl 125 65 - 199 mg/dL BUN 16 10 - 20 mg/dL Creatinine 1.23 0.80 - 1.50 mg/dL Sodium 138 135 - 145 mmol/L Potassium 3.9 3.5 - 5.0 mmol/L Chloride 105 98 - 107 mmol/L CO2 26 22 - 31 mmol/L Anion Gap 7 5 - 15 mmol/L Calcium 9.1 8.5 - 10.5 mg/dL Total Protein 6.4 6.1 - 8.0 g/dL Albumin 4.0 3.2 - 5.2 g/dL AST 41 (H) 0 - 39 unit/L ALT 87 (H) 0 - 55 unit/L Alk Phos 103 40 - 130 unit/L Total Bilirubin 0.3 0.2 - 1.3 mg/dL Estimated GFR 64 >=60 mL/min/1.73 m?? Hemogram Result Value Ref Range WBC 9.8 (H) 4.0 - 9.5 x10(3)/mcL RBC 4.38 (L) 4.58 - 5.54 x10(6)/mcL Hemoglobin 14.4 13.7 - 16.5 g/dL Hematocrit 43.6 40.5 - 48.5 % MCV 99.5 (H) 82.9 - 93.1 fL MCH 32.9 (H) 27.5 - 32.1 pg MCHC 33.0 32.0 - 35.7 g/dL Platelets 168 145 - 357 x10(3)/mcL RDWSD 50.4 (H) 36.0 - 45.0 fL RDWCV 13.5 11.4 - 13.8 % MPV 9.9 7.6 - 12.9 fL nRBC % Auto 0.0 % nRBC Abs Auto 0.000 0.000 - 0.000 x10(3)/mcL Differential, Automated Result Value Ref Range Neutrophils % 80.4 % Neutr Abs (ANC) 7.90 (H) 1.70 - 6.10 x10(3)/mcL Lymphocytes % 15.1 % Lymphocytes Abs 1.5 0.9 - 3.2 x10(3)/mcL Monocytes % 2.7 % Monocyte Abs 0.3 0.3 - 0.9 x10(3)/mcL Eosinophils % 0.7 % Eosinophils Abs 0.1 0.0 - 0.4 x10(3)/mcL Basophils % 0.7 % Basophils Abs 0.1 0.0 - 0.1 [...] (pT): pT3a Regional Lymph Nodes (pN): pN1 Imagin08/12/22 abdominal MRI: IMPRESSION 1. Lesion of concern [...] cabozantinib started for lung metastasis (treatment break 03/04-6 for COVID) -05/04/22 dose of cabozantinib reduced [...] taper. Pt prefers to get labs at [facility]. We'll send orders and I'll ask our log scaler to f/u on results. Advised pt to [...] with CT scan blood work and visit #Elevated TSH: TSH is within normal range. Continue levothyroxine 50 mcg a day. Free T4 is still within normal range, subclinical hypothyroidism?, #I right kidney mass: Hemorrhagic cyst on MRI. Not suspicious for solid tumor.. Concern for possible solid mass arising at the site of prior cyst, versus blood products. We will schedule kidney ultrasound next visit #Garrett ESPOSITO DVT: continue Eliquis per PCP. 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 [...] -Continue Cabometyx to 20 mg a day -CBC, CMP, TSH, free T4 and CT scan 1-3 days prior next visit - Next visit in 4 weeks The plan was discussed with patient in details. All questions were answered to patient's satisfaction. documented in this encounter Plan of Treatment Upcoming Encounters Date Type Department Care Team (Late st Contact Info) Description 02/16/2024 9:15 AM EDT Laboratory Appointment Lab at [facility] Hematology Oncology [address] [place] [address] 02/16/2024 10:20 AM EDT Hospital [place] [phone] Mitali Griffiths APRN [facility] DR HEMATOLOGY AND ONCOLOGY [place] [phone] 02/16/2024 1:30 PM EDT Office Visit Hematology [place] [phone] Albino Bartholomew MD [facility] DR HEMATOLOGY [place] [address] 04/17/2024 10:00 AM EST Office Visit Dermatology at [facility] [address] [place] [address] Oli Winter MD [address] [facility] [place] [address] documented as of this encounter Results * CT Chest Abdomen Pelvis w Contrast (Generic) (11/04/2022 10:55 AM EDT) Anatomical Region Laterality Modality Abdomen, Pelvis Computed Tomogra phy Impressions 11/04/2022 1:30 PM EDT 1. ??No local recurrence of renal cell carcinoma. No lymphadenopathy. 2. ??Unchanged 1.2 cm left lung metastasis and 1.0 cm suspected right lung metastasis. 3. ??Unchanged pancreatic body cystic lesion, 1.0 cm. Attention on follow-up studies recommended. Thank you for letting us participate in the care of this patient. ??If you are a health care provider and have any questions regarding this report, please contact the number below. ??For patients who have questions please contact the health healthcare economics consultant that requested your imaging first. ? Electronically signed by: Rich Baldwin MD, [facility] ([phone]), at 11/04/2022 1:30 PM Narrative 11/04/2022 1:30 PM EDT EXAMINATION: CT CHEST ABDOMEN PELVIS W CONTRAST (GENERIC) CLINICAL HISTORY: Metastatic disease evaluation; Restaging of metastatic renal cell carcinoma TECHNIQUE: Helical CT of the chest, abdomen, and pelvis following the intravenous administration of 120.0 ml of OMNIPAQUE 350.00 mg/ml. Oral contrast was administered. COMPARISON: CT chest abdomen and pelvis 06/26/2022. MRI abdomen 08/12/2022. FINDINGS: Chest: Lungs and large airways: Unchanged irregular morphology 1.2 cm nodule in the basal left lower lobe, biopsy-proven RCC metastasis. Irregular solid 1.0 cm nodule in the anterior right apex is unchanged as well. Tiny subpleural nodule in the anterior right upper lobe on series 4 image 30, decreased from 5 mm to 3 mm. No new or enlarging nodules. Central airways are clear. Pleura: No effusion. Heart/vasculature: Normal. Lymph nodes: No enlarged lymph nodes. Mediastinum and christine: Normal. Abdomen/pelvis: Liver: Normal size and attenuation without lesions. Bile ducts: Nondilated. Gallbladder: No calcified gallstones. Normal caliber wall. Pancreas: Normal attenuation without ductal dilatation. 1.0 cm round cystic lesion in the body, unchanged. Spleen: Normal. Adrenals: Normal. Kidneys: Left radical nephrectomy. Exophytic right upper pole hemorrhagic cyst. Subcentimeter hypoattenuating cortical lesions in the right kidney characterized as simple cysts on the comparison MRI. No collecting system dilatation. Urinary Bladder: Normal. Vasculature: No abdominal aortic aneurysm. Lymph Nodes: No enlarged lymph nodes. Bowel: Enteric contrast has reached the distal small bowel. No obstruction or wall thickening. Colonic diverticulosis without evidence of acute diverticulitis. Peritoneum and retroperitoneum: No free fluid. No pneumoperitoneum. No loculated fluid collection or mesenteric inflammation. Abdominal wall: Small fat-containing umbilical and right inguinal hernias. Reproductive organs: Normal contours of the prostate and seminal vesicles. Osseous structures: No suspicious lesions. Procedure Note Rich Baldwin MD - 11/04/2022 EXAMINATION: CT CHEST ABDOMEN PELVIS W CONTRAST (GENERIC) CLINICAL HISTORY: Metastatic disease evaluation; Restaging of metastaticrenal cell carcinoma TECHNIQUE: Helical CT of the chest, abdomen, and pelvis following the intravenous administration of 120.0 ml of OMNIPAQUE 350.00 mg/ml. Oralcontrast was administered. COMPARISON: CT chest abdomen and pelvis 06/26/2022. MRI abdomen08/12/2022. FINDINGS: Chest: Lungs and large airways: Unchanged irregular morphology 1.2 cm nodule inthe basal left lower lobe, biopsy-proven RCC metastasis. Irregular solid 1.0cm nodule in the anterior right apex is unchanged as well. Tiny subpleuralnodule in the anterior right upper lobe on series 4 image 30, decreased from 5 mmto 3 mm. No new or enlarging nodules. Central airways are clear. Pleura: No effusion. Heart/vasculature: Normal. Lymph nodes: No enlarged lymph nodes. Mediastinum and christine: Normal. Abdomen/pelvis: Liver: Normal size and attenuation without lesions. Bile ducts: Nondilated. Gallbladder: No calcified gallstones. Normal caliber wall. Pancreas: Normal attenuation without ductal dilatation. 1.0 cm roundcystic lesion in the body, unchanged. Spleen: Normal. Adrenals: Normal. Kidneys: Left radical nephrectomy. Exophytic right upper pole hemorrhagiccyst. Subcentimeter hypoattenuating cortical lesions in the right kidneycharacterized as simple cysts on the comparison MRI. No collecting system dilatation. Urinary Bladder: Normal. Vasculature: No abdominal aortic aneurysm. Lymph Nodes: No enlarged lymph nodes. Bowel: Enteric contrast has reached the distal small bowel. No obstructionor wall thickening. Colonic diverticulosis without evidence of acute diverticulitis. Peritoneum and retroperitoneum: No free fluid. No pneumoperitoneum. Noloculated fluid collection or mesenteric inflammation. Abdominal wall: Small fat-containing umbilical and right inguinalhernias. Reproductive organs: Normal contours of the prostate and seminalvesicles. Osseous structures: No suspicious lesions. IMPRESSION 1. No local recurrence of renal cell carcinoma. No lymphadenopathy. 2. Unchanged 1.2 cm left lung metastasis and 1.0 cm suspected rightlung metastasis. 3. Unchanged pancreatic body cystic lesion, 1.0 cm. Attention onfollow-up studies recommended. Thank you for letting us participate in the care of this patient. If youare a health care provider and have any questions regarding this report,please contact the number below. For patients who have questions please contactthe health healthcare economics consultant that requested your imaging first. Electronically signed by: Rich Baldwin MD, 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
--- OUTSIDE RECORDS SUMMARY | 2024-02-03 16:53 | XMS_ITS | Encounter Summary ---
Author Organization Replaced By [facility] Address [facility] [place] [address] Care Team Providers Care Ground Source Heat Pump Technician Name Role Phone Juan Dempsey MD Primary Care Provider [phone] Encounter Details Date Type Department Care Team (Latest Contact Info) Description 11/06/2022 Travel Social History Tobacco Use Types Packs/Day [...] 9:15 AM EDT Laboratory Appointment Lab at [facility] Hematology Oncology [address] [place] [address] 02/16/2024 10:20 AM EDT Hospital [place] [phone] Mitali Griffiths APRN [facility] DR [place] [address] 02/16/2024 1:30 PM EDT Office Visit [place]ology [place] [address] Albino Bartholomew MD [facility] DR [place]AT[place] [address] 04/17/2024 10:00 AM EST Office Visit Dermatology at [facility] [address] [place] [address] Oli Winter MD [address] [facility] [place] [address] documented as of this encounter Visit Diagnoses Not on filedocumented in this encounter Care Teams Ground Source Heat Pump Technician Relationship Specialty Start Date End Date Juan Dempsey MD [address] [place] [address] PCP - General Emergency Medicine 08/20/21 documented as of this encounter
--- OUTSIDE RECORDS SUMMARY | 2024-02-03 16:53 | XMS_ITS | Encounter Summary ---
Author Organization [facility] Address [facility] [place] [address] Care Team Providers Care Site Supervising Technical Operator Name Role Phone Juan Dempsey MD Primary Care Provider [phone] Reason for Visit * Reason Comments Specialty Pharmacy Review Cabometyx 20mg tablet Encounter Details Date Type Department Care Team (Late st Contact Info) Description 11/06/2022 Specialty [place] [phone] Kelin Chong, [facility] Social History Tobacco Use Types Packs/Day [...] encounter Progress Notes * Kelin Chong - 11/06/2022 11:59 PM EDT The [facility] has completed a benefits investigation for Cristofer Tenorio to review their eligibility to fill at [facility]. Per patient's medication list they are prescribedCabometyx 20mg tablet and the medication is able to be filled at the [facility]. The patient is currently filling the medication through Specialty Pharmacy with a $0 copay. PA approved until 2025 documented in this encounter Plan of Treatment Upcoming Encounters Date Type Department Care Team (Late st Contact Info) Description 02/16/2024 9:15 AM EDT Laboratory Appointment Lab at [facility] Hematology Oncology [address] [place] [address] 02/16/2024 10:20 AM EDT Hospital [place] [phone] Mitali Griffiths APRN [facility] [place] [address] 02/16/2024 1:30 PM EDT Office Visit Hematology [place] [address] Albino Bartholomew MD [facility] [place] [address] 04/17/2024 10:00 AM EST Office Visit Dermatology at [facility] [address] [place] [address] Oli Winter MD [address] [facility] [place] [address] documented as of this encounter Visit Diagnoses Not on filedocumented in this encounter Care Teams Site Supervising Technical Operator Relationship Specialty Start Date End Date Juan Dempsey MD [address] [place] [address] PCP - General Emergency Medicine 08/20/21 documented as of this encounter
--- OUTSIDE RECORDS SUMMARY | 2024-02-03 16:53 | XMS_ITS | Encounter Summary ---
Author Organization [facility] Address [facility] [place] [address] Care Team Providers Care Real Estate Sales Supervisor Name Role Phone Juan Dempsey MD Primary Care Provider [phone] Reason for Visit * Reason Comments Follow-up Encounter Details Date Type Department Care Team (Late st Contact Info) Description 12/01/2022 3:00 PM EDT Office Visit [place]ematology [place] [address] Kelin Carlos APRN [facility] DR HEMATOLOGY [place] [address] Metastatic 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, unspecified laterality; High risk medication use; Abnormal thyroid function test Social History Tobacco [...] Sign Reading Time Taken Comments Blood Pressure 131/75 12/01/2022 2:58 PM EDT Pulse 57 12/01/2022 2:58 PM EDT Temperature 36.6 ??C (97.9 ??F) 12/01/2022 2:58 PM ED T Respiratory Rate - - Oxygen Saturation 95% 12/01/2022 2:58 PM EDT Inhaled Oxygen Concentration - - Weight 96.1 kg (211 lb 13.8 oz) 12/01/2022 2:58 PM EDT Height 180.9 cm (5' 11.22) 12/01/2022 2:58 PM E DT Body Mass Index 29.37 12/01/2022 2:58 PM EDT documented in this encounter Progress Notes * Kelin Carlos, MARTITA - 12/01/2022 3:00 PM EDT Images from the original note were not included. [facility] Oncology History of Present Illness: Mr. [...] Cabometyx 20 mg/day with minimal side effects. Notes some dysgeusia which varies but doesn't impact eating/appetiteand he denies mouth sores. 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 No n/v. Bowels regular, on budesonide per GI. No rashes. Sees Derm, just saw Dr. Winter. ROS otherwise negative. Patient Active Problem List Diagnosis Code Renal mass N28.89 Renal cell carcinoma C64.9 Medication management Z79.899 PMH, PSH, and current medications reviewed, as documented in the electronic medical record. 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 Wt Readings from Last 3 Encounters: 12/01/22 96.1 kg (211 lb 13.8 oz) 11/06/22 95.5 kg (210 lb 8.6 oz) 10/20/22 97.5 kg (215 lb) ECOG PS: 0 General: NAD, pleasant, [...] Conversant, normal mood and affect. Vitals: BP 131/75 (Patient Position: Sitting) Pulse 57 Temp 36.6 ??C (97.9 ??F) Ht 180.9 cm (5' 11.22) Wt 96.1 kg (211 lb 13.8 oz) SpO2 95% BMI 29.37 kg/m?? Lab results: Recent Results (from the past 24 hour(s)) T4, free Result Value Ref Range Free T4 1.47 0.93 - 1.70 ng/dL TSH Result Value Ref Range TSH 4.26 (H) 0.27 - 4.20 mcIU/mL Comprehensive metabolic panel (non-fasting) Result Value Ref Range Glucose Lvl 122 65 - 199 mg/dL BUN 24 (H) 10 - 20 mg/dL Creatinine 1.39 0.80 - 1.50 mg/dL Sodium 139 135 - 145 mmol/L Potassium 3.4 (L) 3.5 - 5.0 mmol/L Chloride 103 98 - 107 mmol/L CO2 27 22 - 31 mmol/L Anion Gap 9 5 - 15 mmol/L Calcium 8.7 8.5 - 10.5 mg/dL Total Protein 6.1 6.1 - 8.0 g/dL Albumin 3.7 3.2 - 5.2 g/dL AST 30 0 - 39 unit/L ALT 46 0 - 55 unit/L Alk Phos 105 40 - 130 unit/L Total Bilirubin 0.2 0.2 - 1.3 mg/dL Estimated GFR 56 (L) >=60 mL/min/1.73 m?? Hemogram Result Value Ref Range WBC 9.5 4.0 - 9.5 x10(3)/mcL RBC 4.44 (L) 4.58 - 5.54 x10(6)/mcL Hemoglobin 14.2 13.7 - 16.5 g/dL Hematocrit 42.9 40.5 - 48.5 % MCV 96.6 (H) 82.9 - 93.1 fL MCH 32.0 27.5 - 32.1 pg MCHC 33.1 32.0 - 35.7 g/dL Platelets 160 145 - 357 x10(3)/mcL RDWSD 49.2 (H) 36.0 - 45.0 fL RDWCV 13.9 (H) 11.4 - 13.8 % MPV 9.5 7.6 - 12.9 fL nRBC % Auto 0.0 % nRBC Abs Auto 0.000 0.000 - 0.000 x10(3)/mcL Differential, Automated Result Value Ref Range Neutrophils % 72.8 % Neutr Abs (ANC) 6.89 (H) 1.70 - 6.10 x10(3)/mcL Lymphocytes % 20.0 % Lymphocytes Abs 1.9 0.9 - 3.2 x10(3)/mcL Monocytes % 4.0 % Monocyte Abs 0.4 0.3 - 0.9 x10(3)/mcL Eosinophils % 1.7 % Eosinophils Abs 0.2 0.0 - 0.4 x10(3)/mcL Basophils % 1.1 % Basophils Abs 0.1 0.0 - 0.1 [...] We'll send orders and I'll ask our house fellow to f/u on results. Advised pt to [...] him back in 4-5 weeks w/blood work. #Hypothyroid: TSH slightly elevated but decreased compared to last visit. T4 wnl. Continue levothyroxine 50 mcg a day. #I right kidney mass: as noted previously: [...] with CBC, CMP, TSH, free T4 in 4-5 weeks Mr. Tenorio asked appropriate questions and verbalized good understanding of and agreement with the plan. I encouraged him to call anytime with questions or concerns and he agreed. Kelin Carlos APRN Oncology documented in this encounter Plan of Treatment Upcoming Encounters Date Type Department Care Team (Late st Contact Info) Description 02/16/2024 9:15 AM EDT Laboratory Appointment Lab at [facility] [place] Oncology [address] [place] [address] 02/16/2024 10:20 AM EDT Hospital [place] [address] Mitali Griffiths APRN [facility] [place] [address] 02/16/2024 1:30 PM EDT Office Visit Hematology [place] [phone] Albino Bartholomew MD [facility] [place] [address] 04/17/2024 10:00 AM EST Office Visit Dermatology at [facility] [address] [place] [phone] Oli Winter MD [address] [facility] [place] [address] documented as of this encounter Visit Diagnoses Diagnosis Metastatic 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, unspecified laterality High risk medication use Encounter for long-term (current) use of other medications Abnormal thyroid function test Nonspecific abnormal results of thyroid function study documented in this encounter Care Teams Real Estate Sales Supervisor Relationship Specialty Start Date End Date Juan Dempsey MD [address] [place] [address] PCP - General Emergency Medicine 08/20/21 documented as of this encounter
--- OUTSIDE RECORDS SUMMARY | 2024-02-03 16:53 | XMS_ITS | Encounter Summary ---
Author Organization Count Includes [facility] [place] [address] Care Team Providers Care Planner Internship Name Role Phone Juan Dempsey MD Primary Care Provider [phone] Reason for Referral * Diagnostic Test (Routine) - Closed Specialty Diagnoses / Procedures Referred By Contac t Referred To Contact Radiology Diagnoses Metastatic 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, unspecified laterality Procedures CT Chest Abdomen Pelvis w Contrast (Generic) Albino Bartholomew MD [facility] [address] [place] [address] [facility] [place] [address] Referral ID Status Reason Start Date Expiration Date V isits Requested Visits Authorized [id number] Closed Specialty Service Requested 10/14/2022 04/15/2024 1 1 Reason for Visit * Diagnostic Test (Routine) - Closed Specialty Diagnoses / Procedures Referred By Contac t Referred To Contact Radiology Diagnoses Metastatic 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, unspecified laterality Procedures CT Chest Abdomen Pelvis w Contrast (Generic) Albino Bartholomew MD [facility] [place] [address] [facility] [place] [address] Referral ID Status Reason Start Date Expiration Date V isits Requested Visits Authorized [id number] Closed Specialty Service Requested 10/14/2022 04/15/2024 1 1 Encounter Details Date Type Department Care Team (Latest Contact Info) Description 11/04/2022 8:35 AM EDT - 11/04/2022 11:59 PM EDT Hospital Encounter CT Scan at [facility] [place] [address] Albino Bartholomew MD [facility] [address] [place] [address] Metastatic renal cell carcinoma to [...] [facility] Hematology Oncology [address] [place] [address] 02/16/2024 10:20 AM EDT Hospital [place] [address] Mitali Griffiths APRN [facility] [address] [place] [address] 02/16/2024 1:30 PM EDT Office Visit Hematology [place] [address] Albino Bartholomew MD [facility] DR [place] [address] 04/17/2024 10:00 AM EST Office Visit Dermatology at [facility] [address] [place] [address] Oli Winter MD [address] [facility] [place] [address] documented as of this encounter Procedures Procedure Name Priority Date/Time Associated Diagnosis Comments CT CHEST ABDOMEN PELVIS W CONTRAST (GENERIC) Routine 11/04/2022 10:55 AM EDT Metastatic renal cell carcinoma to [...] who have questions please contact the health care mgr that requested your imaging first. ? Electronically signed by: Rich Baldwin MD, [facility] ([phone]), at 11/04/2022 1:30 PM Narrative 11/04/2022 1:30 [...] patients who have questions please contactthe health care mgr that requested your imaging first. Electronically signed by: Rich Baldwin MD, [facility]([phone]), at 11/04/2022 1:30 PM Albino Bartholomew MD IM CT ORDERABLES documented in this encounter Visit Diagnoses Diagnosis Metastatic 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, unspecified laterality documented in this encounter Administered Medications Inactive Administered Medications - up to 3 most recent administrations Medication Order MAR Action Action Date Dose Rate Site iohexoL (Omnipaque) (350 mg/mL) solution 0-200 mL 0-200 mL, Intravenous, ONCE PRN, 1 dose, Starting on Wed11/04/22 at 1055, Until Wed11/04/22 at 1057, Per Protocol, Warning Vesicant/Irritant Medication , Radiology Contrast, Routine Given 11/04/2022 10:57 AM EDT 120 mLs iohexoL (Omnipaque) (350 mg/mL) solution 0-50 mL 0-50 mL, Oral, ONCE PRN, 1 dose, Starting on Wed11/04/22 at 1055, Until Wed11/04/22 at 1055, Per Protocol, Warning Vesicant/Irritant Medication , Radiology Contrast, Routine Given 11/04/2022 10:55 AM EDT 50 mLs documented in this encounter Care Teams Planner Internship Relationship Specialty Start Date End Date Juan Dempsey MD [address] [place] [address] PCP - General Emergency Medicine 08/20/21 documented as of this encounter
--- OUTSIDE RECORDS SUMMARY | 2024-02-03 16:53 | XMS_ITS | Encounter Summary ---
Author Organization [facility] [place] [address] Care Team Providers Care Municipal Engineer Name Role Phone Juan Dempsey MD Primary Care Provider [phone] Encounter Details Date Type Department Care Team (Latest Contact Info) Description 12/01/2022 1:33 PM EDT - 12/01/2022 11:59 PM EDT Hospital Encounter [place]ematology [place] [phone] Metastatic 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, unspecified [...] mg DR - ER capsuleIndications:Aut oimmune hepatitis TAKE TWO CAPSULES BY MOUTH EVERY MORNING 60 capsule 3 11/23/2022 01/13/2023 cabozantinib (Cabometyx) 20 mg tabletIndications:fatmata l cell carcinoma Take 1 tablet (20 mg) by mouth daily. Take on an empty stomach. Call clinic before starting medication. Indications: renal cell carcinoma 30 tablet 11 09/16/2022 08/19/2023 levothyroxine (Synthroid) 50 mcg tablet Take 1 tablet by mouth daily. 30 tablet 3 08/12/2022 12/07/2022 potassium chloride SA (Klor-con) 10 mEq Tab Sust.Rel. Particle/Crystal Take 1 tablet by mouth 2 times daily. 60 tablet 1 04/04/2022 08/24/2023 documented as of this encounter Plan of Treatment Upcoming Encounters Date Type Department Care Team (Late st Contact Info) Description 02/16/2024 9:15 AM EDT Laboratory Appointment Lab at [facility] Hematology Oncology [address] [place] [address] 02/16/2024 10:20 AM EDT Hospital Encounter CT Scan at [place] [phone] Mitali Griffiths APRN [facility] [place] [address] 02/16/2024 1:30 PM EDT Office Visit Hematology [place] [address] Albino Bartholomew MD [facility] [address] [place] [address] 04/17/2024 10:00 AM EST Office Visit Dermatology at [facility] [address] [place] [address] Oli Winter MD [address] [facility] [place] [address] documented as of this encounter Procedures Procedure Name Priority Date/Time Associated Diagnosis Comments BILIRUBIN, DIRECT Routine 12/01/2022 1:4 5 PM EDT HEMOGRAM Routine 12/01/2022 1:45 PM EDT Metastatic 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, unspecified laterality DIFFERENTIAL, AUTOMATED Routine 12/01/2022 1:45 PM EDT Metastatic 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, unspecified laterality CBC (WITH DIFF) Routine 12/01/2022 1:45 PM EDT Metastatic 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, unspecified laterality TSH Routine 12/01/2022 1:45 PM EDT Metastatic 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, unspecified laterality High risk medication use Abnormal thyroid function test T4, FREE Routine 12/01/2022 1:45 PM EDT Metastatic 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, unspecified laterality High risk medication use Abnormal thyroid function test COMPREHENSIVE METABOLIC PANEL Routine 12/01/2022 1:45 PM EDT Metastatic 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, unspecified laterality documented in this encounter Results * Bilirubin, Direct (12/01/2022 1:45 PM EDT) Pathologist [facility] Bilirubin, Direct 0.1 0.0 - 0.3 mg/dL [facility] Blood 12/01/2022 1:45 PM EDT 12/01/2022 1:54 PM EDT Narrative Resulting Agency Comment Spec In Lab Ana Pringle MD CHEMISTRY ORDERABLES Performing Organization Address City/State/[facility] Co de Phone Number [facility] [place] [address] * (ABNORMAL) Differential, Automated (12/01/2022 1:45 PM EDT) Pathologist [facility] Neutrophil % 72.8 % [facility] Neutrophil Absolute 6.89(H) 1.70 - 6.10 x10(3)/mc L [facility] Lymph % 20.0 % [facility] [place] [facility] Lymphocytes Abs 1.9 0.9 - 3.2 x10(3)/mc L [facility] Monocyte % 4.0 % [facility] Monocyte Abs 0.4 0.3 - 0.9 x10(3)/mc L [facility] Eos % 1.7 % [facility] Eosinophils Abs 0.2 0.0 - 0.4 x10(3)/mc L [facility] Basophil % 1.1 % [facility] Baso Absolute 0.1 0.0 - 0.1 x10(3)/mc L [facility] Immature Gran [...] Absolute 0.04 0.00 - 0.04 x10(3)/mc L [facility] Blood 12/01/2022 1:45 PM EDT 12/01/2022 1:54 PM EDT Narrative Resulting Agency Comment Spec In Lab Albino Bartholomew MD HEMATOLOGY ORDERABLE S Performing Organization Address City/State/[facility] Co de Phone Number [facility] [place] [address] * (ABNORMAL) Hemogram (12/01/2022 1:45 PM EDT) White Blood Cell 9.5 4.0 - 9.5 x10(3)/mc L [facility] Red Blood Cell 4.44(L) 4.58 - 5.54 x10(6)/mc L [facility] Hemoglobin 14.2 13.7 - 16.5 g/dL [facility] Hematocrit 42.9 40.5 - 48.5 % [facility] Mean Cell Volume 96.6(H) 82.9 - 93.1 fL [facility] Mean Cell Hemoglobin 32.0 27.5 - 32.1 pg [facility] Mean Cell Hemoglobin Concentration 33.1 32.0 - 35.7 g/dL [facility] Platelet 160 145 - 357 x10(3)/mc L [facility] RDW Standard Deviation 49.2(H) 36.0 - 45.0 fL [facility] RDW coefficient of variation 13.9(H) 11.4 - 13.8 % [facility] Mean Platelet Volume 9.5 7.6 - 12.9 fL [facility] NRBC% auto 0.0 % [facility] NRBC Absolute 0.000 0.000 - 0.000 x10(3)/mc L [facility] Blood 12/01/2022 1:45 PM EDT 12/01/2022 1:54 PM EDT Narrative Resulting Agency Comment Spec In Lab Albino Bartholomew MD HEMATOLOGY ORDERABLE S [facility] [place] [address] * (ABNORMAL) Comprehensive metabolic panel (non-fasting) (12/01/2022 1:45 PM EDT) Glucose 122 65 - 199 mg/dL [facility] Comment:Diabetes: >=200 mg/d L plus symptoms Blood Urea Nitrogen 24(H) 10 - 20 mg/dL [facility] Creatinine 1.39 0.80 - 1.50 mg/dL [facility] Sodium 139 135 - 145 mmol/L [facility] Potassium 3.4(L) 3.5 - 5.0 mmol/L [facility] Comment: Please note: ??Patients with WBC >100,000 may have falsely elevated Potassium levels. ??For accurate Potassium quantification in these patients send serum separator tube (gold top) for subsequent determinations. ??Contact the Clinical Chemistry Laboratory if there are any questions. Chloride 103 98 - 107 mmol/L [facility] Carbon Dioxide 27 22 - 31 mmol/L [facility] Anion Gap 9 5 - 15 mmol/L [facility] Calcium 8.7 8.5 - 10.5 mg/dL [facility] Protein, Total 6.1 6.1 - 8.0 g/dL [facility] Albumin 3.7 3.2 - 5.2 g/dL [facility] Aspartate Aminotransferase 30 0 - 39 unit/L [facility] Alanine Aminotransferase 46 0 - 55 unit/L [facility] Alkaline Phosphatase 105 40 - 130 unit/L [facility] Bilirubin, Total 0.2 0.2 - 1.3 mg/dL [facility] Est Glomerular Filtration Rate 56(L) >=60 mL/min/1. 73 m?? [facility] [...] and symptoms in addition to eGFR. Blood 12/01/2022 1:45 PM EDT 12/01/2022 1:54 PM EDT Narrative Resulting Agency Comment Spec In Lab Albnio Bartholomew MD CHEMISTRY ORDERABLES Performing Organization Address [facility] Co de Phone Number [facility] [place] [address] * (ABNORMAL) TSH (12/01/2022 1:45 PM EDT) Thyroid Stimulating Hormone 4.26(H) 0.27 - 4.20 mcIU/mL [facility] Comment: Reference Interval (mcIU/mL): Females: ??First Trimester: 0.23-3.88 ??Second Trimester: 0.22-3.90 ??Third Trimester: 0.44-4.66 Blood 12/01/2022 1:45 PM EDT 12/01/2022 1:54 PM EDT Narrative Resulting Agency Comment Spec In Lab Albino Bartholomew MD CHEMISTRY ORDERABLES Performing Organization Address [facility] Co de Phone Number [facility] [place] [address] * T4, free (12/01/2022 1:45 PM EDT) Free T4 1.47 0.93 - 1.70 ng/dL [facility] Comment: Reference Interval (ng/dL): Females: ??First Trimester: 0.97-1.68 ??Second Trimester: 0.77-1.51 ??Third Trimester: 0.77-1.49 Blood 12/01/2022 1:45 PM EDT 12/01/2022 1:54 PM EDT Narrative Resulting Agency Comment Spec In Lab Albino Bartholomew MD CHEMISTRY ORDERABLES [facility] [place] [address] documented in this encounter Visit Diagnoses Diagnosis Metastatic 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, unspecified laterality High risk medication use Encounter for long-term (current) use of other medications Abnormal thyroid function test Nonspecific abnormal results of thyroid function study Autoimmune hepatitis documented in this encounter Care Teams Municipal Engineer Relationship Specialty Start Date End Date Juan Dempsey MD [address] [place] [address] PCP - General Emergency Medicine 08/20/21 documented as of this encounter
--- OUTSIDE RECORDS SUMMARY | 2024-02-03 16:53 | XMS_ITS | Encounter Summary ---
Author Organization [facility] Address [facility] [place] [address] Care Team Providers Care Email Administrator Name Role Phone Juan Dempsey MD Primary Care Provider [phone] Reason for Visit * Reason Comments Specialty Refill Management Encounter Details Date Type Department Care Team (Late st Contact Info) Description 12/10/2022 Specialty [place] [phone] Reshma Gar, [facility] Social History Tobacco Use Types [...] this encounter Progress Notes * Reshma Gar [facility] - 12/10/2022 11:43 AM EDT Clinical Management Plan: Refill Specialty Pharmacy Consultation; Reshma Gar [facility] Comprehensive Medication Management (CMM) Cristofer Stevensnaida Mr. [...] Standard Peanut Medication Reconciliation Discrepancies (compared to [facility] med list) No Specialty Pharmacy Refill Questionnaire More data exists 12/10/2022 Refill Questionnaire What is the name of the specialty medication you are refilling? cabonzantinib Are you taking any new medications? No Any new medical condition? No Any new allergies? No Any new side effects that are bothersome? No What date will you need this fill by? 12/17/2022 Adherence: Any missed doses? No Patient understands no changes to current drug regimen were made. Reshma Gar [facility] 12/10/22 11:44 AM documented in this encounter Plan of Treatment Upcoming Encounters Date Type Department Care Team (Late st Contact Info) Description 02/16/2024 9:15 AM EDT Laboratory Appointment Lab at [facility] Hematology Oncology [address] [place], [place] [id number] 02/16/2024 10:20 AM EDT Hospital Encounter CT Scan at [place] [phone] Mitali Griffiths APRN [facility] [place] [address] 02/16/2024 1:30 PM EDT Office Visit Hematology and Oncology at [place] [phone] Albino Bartholomew MD [facility] [place] [address] 04/17/2024 10:00 AM EST Office Visit Dermatology at [facility] [address] [place] [address] Oli Winter MD [address] [facility] [place] [address] documented as of this encounter Visit Diagnoses Not on filedocumented in this encounter Care Teams Email Administrator Relationship Specialty Start Date End Date Juan Dempsey MD [address] [place] [address] PCP - General Emergency Medicine 08/20/21 documented as of this encounter
--- OUTSIDE RECORDS SUMMARY | 2024-02-03 16:53 | XMS_ITS | Encounter Summary ---
Author Organization [facility] Address [facility] [place] [address] Care Team Providers Care Clinical Provider Trainer Name Role Phone Juan Dempsey MD Primary Care Provider Encounter Details Date Type Department Care Team (Latest Contact Info) Description 01/06/2023 Travel Social History Tobacco Use Types Packs/Day [...] AM EDT Laboratory Appointment Lab at [facility] Hematology Oncology [address] [place] [address] 02/16/2024 10:20 AM EDT Hospital [place] [phone] Mitali Griffiths APRN [facility] [address] [place] [address] 02/16/2024 1:30 PM EDT Office Visit Hematology [place] [address] Albino Bartholomew MD [facility] DR [place] [address] 04/17/2024 10:00 AM EST Office Visit Dermatology at [facility] [address] [place] [address] Oli Winter MD [address] [facility] [place] [address] documented as of this encounter Visit Diagnoses Not on filedocumented in this encounter Care Teams Clinical Provider Trainer Relationship Specialty Start Date End Date Juan Dempsey MD [address] [place] [address] PCP - General Emergency Medicine 08/20/21 documented as of this encounter
--- OUTSIDE RECORDS SUMMARY | 2024-02-03 16:53 | XMS_ITS | Encounter Summary ---
Author Organization [facility] Address [facility] [place] [address] Care Team Providers Care Destination Coordinator Name Role Phone Juan Dempsey MD Primary Care Provider [phone] Reason for Visit * Reason Comments Specialty Pharmacy Review Cabometyx 40mg tablet Encounter Details Date Type Department Care Team (Late st Contact Info) Description 09/16/2022 Specialty [place] [phone] Kelin Chong, [facility] Social History Tobacco Use Types [...] encounter Progress Notes * Kelin Chong - 09/16/2022 11:59 PM EDT The [facility] has completed a benefits investigation for Cristofer Tenorio to review their eligibility to fill at [facility]. Per patient's medication list they are prescribedCabometyx 40mg tablet and the medication is able to be filled at the [facility]. The patient is currently filling the medication through Specialty Pharmacy with a $0 copay. PA approved until 2025 documented in this encounter Plan of Treatment Upcoming Encounters Date Type Department Care Team (Late st Contact Info) Description 02/16/2024 9:15 AM EDT Laboratory Appointment Lab at [facility] Hematology Oncology [address] [place] [address] 02/16/2024 10:20 AM EDT Hospital [place] [phone] Mitali Griffiths APRN [facility] [place]EMATOLOG[place] [address] 02/16/2024 1:30 PM EDT Office Visit Hematology [place] [address] Albino Bartholomew MD [facility] DR HEMATOLOGY [place] [address] 04/17/2024 10:00 AM EST Office Visit Dermatology at [facility] [address] [place] [address] Oli Winter MD [address] [facility] [place] [address] documented as of this encounter Visit Diagnoses Not on filedocumented in this encounter Care Teams Destination Coordinator Relationship Specialty Start Date End Date Juan Dempsey MD [address] [place] [address] PCP - General Emergency Medicine 08/20/21 documented as of this encounter
--- OUTSIDE RECORDS SUMMARY | 2024-02-03 16:53 | XMS_ITS | Encounter Summary ---
Author Organization [facility]ly [facility] Address [facility] [place] [address] Care Team Providers Care Manager Of Marketing Name Role Phone Juan Dempsey MD Primary Care Provider [phone] Reason for Visit * Reason Comments Medication Management Encounter Details Date Type Department Care Team (Late st Contact Info) Description 09/16/2022 Specialty [place] [address] Camilla Lopez [place] Social History Tobacco Use Types Packs/Day Years [...] as of this encounter Progress Notes * Camilla Lopez Constance - 09/16/2022 4:18 PM EDT Clinical Management Plan: Refill Specialty Pharmacy Consultation; Camilla Lopez [facility] Comprehensive Medication Management (CMM) Cristofer Oh Davey Mr. Cristofer Tenorio is a 67 [...] made to the Care Plan: yes - dose decreased to 20 mg If yes, should the medication be held: Yes The patient will be holding his at home 40 mg Cabometyx until he receives the new lowered dose of Cabometyx, 20 mg tablets per instruction of Dr Bartholomew. Assessment and Recommendations: Medication Management Type of Medication Management: chronic disease management Referred By: provider Recipient: beneficiary Provider: plan sponsor pharmacist [facility] Follow-up Time Spent: 1-15 min Method of Contact: by telephone Cognitive Ability: good Cognitive Impairment Status Verified this Year: no Allergies and Drug intolerance: Allergies Allergen Reactions ??? Grass Pollen-Orchardgrass, Standard ??? Peanut Medication Reconciliation Discrepancies (compared to [facility] med list) -reconciled Specialty Pharmacy Refill Questionnaire 09/16/2022 Refill Questionnaire What is the name of the specialty medication you are refilling? cabometyx Are you taking any new medications? No Any new medical condition? No Any new allergies? No Any missed doses since your last fill? 5+ Any new side effects that are bothersome? Yes Please explain tingling of heels and toes. What date will you need this fill by? 09/18/2022 Adherence: Specialty Med Adherence Patient Demonstrates Understanding of Importance of Adherence: Yes Educational Information or Adherence Tools Provided: Yes How many doses does patient have remaining at home?: 0 Patient Reported X Missed Doses in the Last Month: >5 If >0, reason for missed doses: side effect/ADR, instructed by provider to hold or take differently Provider-Estimated Medication Adherence Level: 90-100% Adherence Tools Used: calendar, directed education Pt understands no changes to current drug regimen were made at the appointment and that [facility] is providing recommendations (summary located at top of note) for provider review and follow up. Camilla Lopez RPH 09/16/22 4:21 PM documented in this encounter Plan of Treatment Upcoming Encounters Date Type Department Care Team (Late st Contact Info) Description 02/16/2024 9:15 AM EDT Laboratory Appointment Lab at [facility] Hematology Oncology [address] [place] [address] 02/16/2024 10:20 AM EDT Hospital [place] [phone] Mitali Griffiths APRN [facility] DR HEMATOLOGY [place] [address] 02/16/2024 1:30 PM EDT Office Visit Hematology [place] [phone] Albino Bartholomew MD [facility] DR HEMATOLOGY [place] [address] 04/17/2024 10:00 AM EST Office Visit Dermatology at [facility] [address] [place] [address] Oli Winter MD [address] [facility] [place] [address] documented as of this encounter Visit Diagnoses Not on filedocumented in this encounter Care Teams Manager Of Marketing Relationship Specialty Start Date End Date Juan Dempsey MD [address] [place] [address] PCP - General Emergency Medicine 08/20/21 documented as of this encounter
--- OUTSIDE RECORDS SUMMARY | 2024-02-03 16:53 | XMS_ITS | Encounter Summary ---
Author Organization [facility] Address [facility] [place] [address] Care Team Providers Care Hat Marker Name Role Phone Juan Dempsey MD Primary Care Provider [phone] Encounter Details Date Type Department Care Team (Latest Contact Info) Description 11/04/2022 Travel Social History Tobacco Use Types Packs/Day [...] 9:15 AM EDT Laboratory Appointment Lab at [facility] Hematology Oncology [address] [place] [address] 02/16/2024 10:20 AM EDT Hospital [place] [phone] Mitali Griffiths APRN [facility] DR HEMATOLOGY [place] [address] 02/16/2024 1:30 PM EDT Office Visit Hematology [place] [address] Albino Bartholomew MD [facility] DR HEMATOLOGY [place] [address] 04/17/2024 10:00 AM EST Office Visit Dermatology at [facility] [address] [place] [address] Oli Winter MD [address] [facility] [address] documented as of this encounter Visit Diagnoses Not on filedocumented in this encounter Care Teams Hat Marker Relationship Specialty Start Date End Date Juan Dempsey MD [address] [place] [address] PCP - General Emergency Medicine 08/20/21 documented as of this encounter
--- OUTSIDE RECORDS SUMMARY | 2024-02-03 16:53 | XMS_ITS | Encounter Summary ---
Author Organization Formerly [facility] Address [facility] [place] [address] Care Team Providers Care Avionics Manager Name Role Phone Juan Dempsey MD Primary Care Provider [phone] Encounter Details Date Type Department Care Team (Latest Contact Info) Description 10/07/2022 Travel Social History Tobacco Use Types Packs/Day [...] at [facility] Hematology Oncology [address] [place] [address] 02/16/2024 10:20 AM EDT Hospital [place] [phone] Mitali Griffiths APRN [facility] DR [place] [address] 02/16/2024 1:30 PM EDT Office Visit [place]ematology [place] [address] Albino Bartholomew MD [facility] DR [place] [address] 04/17/2024 10:00 AM EST Office Visit Dermatology at [facility] [address] [place] [address] Oli Winter MD [address] [facility] [place] [address] documented as of this encounter Visit Diagnoses Not on filedocumented in this encounter Care Teams Avionics Manager Relationship Specialty Start Date End Date Juan Dempsey MD [address] [place] [address] PCP - General Emergency Medicine 08/20/21 documented as of this encounter
--- OUTSIDE RECORDS SUMMARY | 2024-02-03 16:53 | XMS_ITS | Encounter Summary ---
Author Organization [facility] Address [facility] [place] [address] Care Team Providers Care Growth Hacker Name Role Phone Juan Dempsey MD Primary Care Provider [phone] Reason for Visit * Reason Comments Medication Refill Encounter Details Date Type Department Care Team (Late st Contact Info) Description 11/23/2022 [place] [address] Ana Pringle MD [facility] [place] [address] Autoimmune hepatitis Social History Tobacco Use Types [...] AM EDT Laboratory Appointment Lab at [facility] Hematology Oncology [address] [place] [address] 02/16/2024 10:20 AM EDT Hospital [place] [phone] Mitali Griffiths APRN [facility] DR HEMATOLOGY [place] [address] 02/16/2024 1:30 PM EDT Office Visit Hematology [place] [phone] Albino Bartholomew MD [facility] [place] [address] 04/17/2024 10:00 AM EST Office Visit Dermatology at [facility] [address] [place] [address] Oli Winter MD [address] [place] [place] [address] documented as of this encounter Visit Diagnoses Diagnosis Autoimmune hepatitis documented in this encounter Care Teams Growth Hacker Relationship Specialty Start Date End Date Juan Dempsey MD [address] [place] [address] PCP - General Emergency Medicine 08/20/21 documented as of this encounter
--- OUTSIDE RECORDS SUMMARY | 2024-02-03 16:53 | XMS_ITS | Encounter Summary ---
Author Organization [facility]ly [facility] [place] [address] Care Team Providers Care Lead Installer Name Role Phone Juan Dempsey MD Primary Care Provider [phone] Encounter Details Date Type Department Care Team (Latest Contact Info) Description 10/14/2022 12:01 PM EDT - 10/14/2022 11:59 PM EDT Hospital Encounter [place] [phone] Metastatic 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, unspecified [...] 9:15 AM EDT Laboratory Appointment Lab at [facility] Hematology Oncology [address] [place] [address] 02/16/2024 10:20 AM EDT Hospital Encounter CT Scan at [place] [phone] Mitali Griffiths APRN [facility] [address] HEMATOLOGY AND ONCOLOGY [place] [address] 02/16/2024 1:30 PM EDT Office Visit [place]ology [place] [phone] Albino Bartholomew MD [facility] [address] HEMATOLOGY AND ONCOLOGY [place] [address] 04/17/2024 10:00 AM EST Office Visit Dermatology at [facility] [address] [place] [address] Oli Winter MD [address] [facility] [place] [place] [address] Scheduled Orders Name Type Priority Associated Diagnoses Orde r Schedule Comprehensive metabolic panel (non-fasting) Lab Routine Metastatic 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, unspecified laterality 1 Occurrences starting 10/14/2022 until 10/14/2022 documented as of this encounter Procedures Procedure Name Priority Date/Time Associated Diagnosis Comments BILIRUBIN, DIRECT Routine 10/14/2022 12: 23 PM EDT HEMOGRAM Routine 10/14/2022 12:23 PM EDT Metastatic 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, unspecified laterality DIFFERENTIAL, AUTOMATED Routine 10/14/2022 12:23 PM EDT Metastatic 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, unspecified laterality CBC (WITH DIFF) Routine 10/14/2022 12:23 PM EDT Metastatic 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, unspecified laterality TSH Routine 10/14/2022 12:23 PM EDT Metastatic 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, unspecified laterality High risk medication use Abnormal thyroid function test T4, FREE Routine 10/14/2022 12:23 PM EDT Metastatic 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 Blood 10/14/2022 12:2 3 PM EDT 10/14/2022 12:43 PM EDT Narrative Resulting Agency Comment Spec In Lab Ana Pringle MD CHEMISTRY ORDERABLES [facility] [place] [address] * (ABNORMAL) Differential, Automated (10/14/2022 12:23 PM EDT) Neutrophil % 80.4 % [facility] Neutrophil Absolute 7.90(H) 1.70 - 6.10 x10(3)/mc L [facility] Lymph % 15.1 % [facility] Lymphocytes Abs 1.5 0.9 - 3.2 x10(3)/mc L [facility] Monocyte % 2.7 % [facility] Monocyte Abs 0.3 0.3 - 0.9 x10(3)/mc L [facility] Eos % 0.7 % [facility] [place] Eosinophils Abs 0.1 0.0 - 0.4 x10(3)/ L [facility] Basophil % 0.7 % [facility] Baso Absolute 0.1 0.0 - 0.1 x10(3)/ L [facility] Immature Gran % 0.40 % [facility] Comment: Immature granulocytes(IG's)percentage and absolute count will include metamyelocytes, myelocytes, and promyelocytes. Blood smears from CBCs yielding IG's will be scanned manually for concordance. If this scan disagrees with the automated IG or if promyelocytes are noted, a manual differential will be performed. Immature Gran Absolute 0.04 0.00 - 0.04 x10(3)/ L [facility] Blood 10/14/2022 12:2 3 PM EDT 10/14/2022 12:42 PM EDT Narrative Resulting Agency Comment Spec In Lab Albino Bartholomew MD HEMATOLOGY ORDERABLE S [facility] [place] [address] * (ABNORMAL) Hemogram (10/14/2022 12:23 PM EDT) White Blood Cell 9.8(H) 4.0 - 9.5 x10(3)/ L [facility] Red Blood Cell 4.38(L) 4.58 - 5.54 x10(6)/ L [facility] Hemoglobin 14.4 13.7 - 16.5 g/dL [facility] Hematocrit 43.6 40.5 - 48.5 % [facility] Mean Cell Volume 99.5(H) 82.9 - 93.[address] fL [facility] Mean Cell Hemoglobin 32.9(H) 27.5 - 32.[address] [facility] Mean Cell Hemoglobin Concentration 33.0 32.0 - 35.7 g/dL [facility] Platelet 168 145 - 357 x10(3)/ L [facility] RDW Standard Deviation 50.4(H) 36.0 - 45.0 fL [facility] RDW coefficient of variation 13.5 11.4 - 13.8 % [facility] Mean Platelet Volume 9.9 7.6 - 12.9 fL [facility] NRBC% auto 0.0 % [facility] NRBC Absolute 0.000 0.000 - 0.000 x10(3)/mc L [facility] Blood 10/14/2022 12:2 3 PM EDT 10/14/2022 12:42 PM EDT Narrative Resulting Agency Comment Spec In Lab Albino Bartholomew MD HEMATOLOGY ORDERABLE S [facility] [place] [address] * (ABNORMAL) Comprehensive metabolic panel (non-fasting) (10/14/2022 12:23 PM EDT) Glucose 125 65 - 199 mg/dL [facility] Comment:Diabetes: >=200 mg/d L plus symptoms Blood Urea Nitrogen 16 10 - 20 mg/dL [facility] Creatinine 1.23 0.80 - 1.50 mg/dL [facility] Sodium 138 135 - 145 mmol/L [facility] Potassium 3.9 3.5 - 5.0 mmol/L [facility] Comment: Please note: ??Patients with WBC >100,000 may have falsely elevated Potassium levels. ??For accurate Potassium quantification in these patients send serum separator tube (gold top) for subsequent determinations. ??Contact the Clinical Chemistry Laboratory if there are any questions. Chloride 105 98 - 107 mmol/L [facility] Carbon Dioxide 26 22 - 31 mmol/L [facility] Anion Gap 7 5 - 15 mmol/L [facility] Calcium 9.1 8.5 - 10.5 mg/dL [facility] Protein, Total 6.4 6.1 - 8.0 g/dL [facility] Albumin 4.0 3.2 - 5.2 g/dL [facility] Aspartate Aminotransferase 41(H) 0 - 39 unit/L [facility] Alanine Aminotransferase 87(H) 0 - 55 unit/L [facility] Alkaline Phosphatase 103 40 - 130 unit/L [facility] Bilirubin, Total 0.3 0.2 - 1.3 mg/dL [facility] Est Glomerular Filtration Rate 64 >=60 mL/min/1. 73 m?? [facility] Comment: This patient's estimated [...] and symptoms in addition to eGFR. Blood 10/14/2022 12:2 3 PM EDT 10/14/2022 12:43 PM EDT Narrative Resulting Agency Comment Spec In Lab Albino Bartholomew MD CHEMISTRY ORDERABLES Performing Organization Address City/[facility] Co de Phone Number [facility] [place] [address] * TSH (10/14/2022 12:23 PM EDT) Thyroid Stimulating Hormone 3.13 0.27 - 4.20 mcIU/mL [facility] Comment: Reference Interval (mcIU/mL): Females: ??First Trimester: 0.23-3.88 ??Second Trimester: 0.22-3.90 ??Third Trimester: 0.44-4.66 Blood 10/14/2022 12:2 3 PM EDT 10/14/2022 12:43 PM EDT Narrative Resulting Agency Comment Spec In Lab Albino Bartholomew MD CHEMISTRY ORDERABLES Performing Organization Address City/[facility] Co de Phone Number [facility] [place] [address] * T4, free (10/14/2022 12:23 PM EDT) Free T4 1.42 0.93 - 1.70 ng/dL [facility] Comment: Reference Interval (ng/dL): Females: ??First Trimester: 0.97-1.68 ??Second Trimester: 0.77-1.51 ??Third Trimester: 0.77-1.49 Blood 10/14/2022 12:2 3 PM EDT 10/14/2022 12:43 PM EDT Narrative Resulting Agency Comment Spec In Lab Albino Bartholomew MD CHEMISTRY ORDERABLES Performing Organization Address City/State/[facility] Co de Phone Number [facility] [place] [address] documented in this encounter Visit Diagnoses Diagnosis Metastatic 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, unspecified laterality High risk medication use Encounter for long-term (current) use of other medications Abnormal thyroid function test Nonspecific abnormal results of thyroid function study Autoimmune hepatitis documented in this encounter Care Teams Lead Installer Relationship Specialty Start Date End Date Juan Dempsey MD [address] [place] [address] PCP - General Emergency Medicine 08/20/21 documented as of this encounter
--- OUTSIDE RECORDS SUMMARY | 2024-02-03 16:53 | XMS_ITS | Encounter Summary ---
Author Organization [facility] Address [facility] [place] [address] Care Team Providers Care Office Machine Punch Operator Name Role Phone Juan Dempsey MD Primary Care Provider [phone] Reason for Visit * Reason Comments Medication Management Medication Refill Encounter Details Date Type Department Care Team (Late st Contact Info) Description 01/11/2023 Specialty [place] [phone] Tru Prakash, [facility] Social History Tobacco Use Types Packs/Day Years [...] this encounter Progress Notes * Tru Prakash RPH - 01/11/2023 10:09 AM EDT Specialty Pharmacy Consultation; Tru Prakash RPH Comprehensive Medication Management (CMM): Specialty Consult, Opt Out Cristofer Tenorio Diagnosis: RCC Therapy Start Date: 02/26/2022 Contact in person or via telephone: telephone Mr. Cristofer Tenorio is a 67 y.o. (1955) male who was contacted in regard to specialty medication. Spoke with patient regarding CABOMETYX. A review of the medication therapy was performed. The medication was refilled as scheduled, and all medication related questions and concerns were addressed. The specialty pharmacy staff will follow up with the patient 7-10 days prior to next refill. Is the patient willing to proceed with the Clinical Assessment? No Summary and Recommendations: A follow-up consultation and assessment was offered but opted out of by Cristofer regarding his cabometyx. He stated that since the dose was lowered he is tolerating it very, noting that his quality of life is an 8 or 9 on a scale of 1 to 10 (excellent) and his only complaints are some fatigue from exercising, and some lingering effects of chemo - some tingling neuropathy (very mild) and taste corruption which he does not allow to affect his eating and appetite. We reviewed his allergy list and reconciled his medication list. An interaction exists where the apixiban can increase the toxicity of the cabozantinib, however with his dose adjusted this does not appear to be a factor in therapy at this time. Cristofer has a follow-up appointment with Dr Bartholomew on Wednesday. Economic Assessment: Patient is agreeable to medication copay: Yes Copay Amount: 10.35 Day Supply: 30 Date Needed: 01/15/2023 Therapy Assessment: Appropriate Therapy: Yes Current Medication Dosing/Route/Frequency: Cabometyx: Take one tablet (20mg) by mouth once daily destin empty stomach Additional equipment/supplies required: no Care Plan Reviewed and Approved by Pharmacist : Yes Problem List: Patient Active Problem List Diagnosis Code Renal mass N28.89 Renal cell carcinoma C64.9 Medication management Z79.899 Medications Reviewed: Yes Medications reconciled: Yes Allergies Reviewed:Yes Allergies reconciled: Yes Pharmacist follow-up needed: Yes Informed patient of specialty pharmacy services: Yes (Optional) Patient unenrolls from routine specialty pharmacy services (Y/N): (Optional) If yes, services unenrolled from: Welcome Packet and Rights and Responsibilities: Patient provided welcome packet/rights and responsibilities: Yes Date Confirmed: 03/19/22 Confirmation: Verbal -Patient is aware a licensed pharmacist is available 24 hours a day, 7 days a week to discuss medication-related questions or concerns: Yes -Patient verbalizes understanding of the common side effect profile of their medication. The patient is able to call 911 or seek urgent care if signs/symptoms of allergy or harmful adverse reactions occur: Yes Patient understands no changes to current drug regimen were made at the appointment and that the pharmacist is providing recommendations (summary located at top of note) for provider review and follow up. Tru Prakash RPH 01/11/23 10:36 AM documented in this encounter Plan of Treatment Upcoming Encounters Date Type Department Care Team (Late st Contact Info) Description 02/16/2024 9:15 AM EDT Laboratory Appointment Lab at [facility] [place] Oncology [address] [place] [address] 02/16/2024 10:20 AM EDT Hospital [place] [address] Mitali Griffiths APRN [facility] [address] [place] [address] 02/16/2024 1:30 PM EDT Office Visit [place]ology [place] [address] Albino Bartholomew MD [facility] DR [place] [address] 04/17/2024 10:00 AM EST Office Visit Dermatology at [facility] [address] [place] [address] Oli Winter MD [address] [facility] [place] [address] documented as of this encounter Visit Diagnoses Not on filedocumented in this encounter Care Teams Office Machine Punch Operator Relationship Specialty Start Date End Date Juan Dempsey MD [address] [place] [address] PCP - General Emergency Medicine 08/20/21 documented as of this encounter
--- OUTSIDE RECORDS SUMMARY | 2024-02-03 16:53 | XMS_ITS | Encounter Summary ---
Author Organization [facility] Address [facility] [place] [address] Care Team Providers Care Shafting Worker Name Role Phone Juan Dempsey MD Primary Care Provider [phone] Encounter Details Date Type Department Care Team (Latest Contact Info) Description 10/30/2022 Travel Social History Tobacco Use Types Packs/Day [...] [facility] [place] Hematology Oncology [address] [place] [address] 02/16/2024 10:20 AM EDT [place] [phone] Mitali Griffiths APRN [facility] DR HEMATOLOGY [place] [address] 02/16/2024 1:30 PM EDT Office Visit [place] [address] Albino Bartholomew MD [facility] DR HEMATOLOGY [place] [address] 04/17/2024 10:00 AM EST Office Visit Dermatology at [facility] [address] [place] [address] Oli Winter MD [address] [facility] [address] documented as of this encounter Visit Diagnoses Not on filedocumented in this encounter Care Teams Shafting Worker Relationship Specialty Start Date End Date Juan Dempsey MD [address] [place] [address] PCP - General Emergency Medicine 08/20/21 documented as of this encounter
--- OUTSIDE RECORDS SUMMARY | 2024-02-03 16:53 | XMS_ITS | Encounter Summary ---
Author Organization [facility] Address [facility] [place] [address] Care Team Providers Care Trade Specialist Name Role Phone Juan Dempsey MD Primary Care Provider [phone] Reason for Visit * Reason Comments Follow-up Encounter Details Date Type Department Care Team (Late st Contact Info) Description 01/13/2023 10:00 AM EDT Office Visit Hematology [place] [address] Albino Costello MD [facility] DR HEMATOLOGY [place] [address] Metastatic 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, unspecified laterality; Abnormal thyroid function test; Autoimmune hepatitis; Renal cell carcinoma of left kidney; High risk medication use Social History Tobacco [...] Sign Reading Time Taken Comments Blood Pressure 136/76 01/13/2023 10:28 AM EDT Pulse 70 01/13/2023 10:28 AM EDT Temperature 36.7 ??C (98.1 ??F) 01/13/2023 1 0:28 AM EDT Respiratory Rate 18 01/13/2023 10:2 8 AM EDT Oxygen Saturation 98% 01/13/2023 10: 28 AM EDT Inhaled Oxygen Concentration - - Weight 96.2 kg (212 lb 1.3 oz) 01/14/20 23 10:28 AM EDT with shoes Height 181.6 cm (5' 11.5) 01/13/2023 1 0:28 AM EDT with shoes Body Mass Index 29.17 01/13/2023 10:28 AM EDT documented in this encounter Progress Notes * Albino Costello MD - 01/13/2023 10:00 AM EDT Images from the original note were not included. [facility] Oncology History of Present Illness: Mr. [...] Cabometyx 20 mg/day with minimal side effects. Complains of some changes in his taste and tingling in his feet which come and go. Otherwise, no focal complaints. 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 No n/v. 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 Wt Readings from Last 3 Encounters: 01/13/23 [...] Conversant, normal mood and affect. Vitals: BP 136/76 (Patient Position: Sitting) Pulse 70 Temp 36.7 ??C (98.1 ??F) (Temporal) Resp 18 Ht 181.6 cm (5' 11.5) Comment: with shoes Wt 96.2 kg (212 lb 1.3 oz) Comment: with shoes SpO2 98% BMI 29.17 kg/m?? Lab results: Recent Results (from the past 24 hour(s)) T4, free Result Value Ref Range Free T4 1.46 0.93 - 1.70 ng/dL TSH Result Value Ref Range TSH 6.29 (H) 0.27 - 4.20 mcIU/mL Comprehensive metabolic panel (non-fasting) Result Value Ref Range Glucose Lvl 119 65 - 199 mg/dL BUN 20 10 - 20 mg/dL Creatinine 1.40 0.80 - 1.50 mg/dL Sodium 141 135 - 145 mmol/L Potassium 3.5 3.5 - 5.0 mmol/L Chloride 103 98 - 107 mmol/L CO2 28 22 - 31 mmol/L Anion Gap 10 5 - 15 mmol/L Calcium 9.5 8.5 - 10.5 mg/dL Total Protein 7.0 6.1 - 8.0 g/dL Albumin 4.2 3.2 - 5.2 g/dL AST 28 0 - 39 unit/L ALT 43 0 - 55 unit/L Alk Phos 103 40 - 130 unit/L Total Bilirubin 0.5 0.2 - 1.3 mg/dL Estimated GFR 55 (L) >=60 mL/min/1.73 m?? Hemogram Result Value Ref Range WBC 8.0 4.0 - 9.5 x10(3)/mcL RBC 4.54 (L) 4.58 - 5.54 x10(6)/mcL Hemoglobin 14.8 13.7 - 16.5 g/dL Hematocrit 43.4 40.5 - 48.5 % MCV 95.6 (H) 82.9 - 93.1 fL MCH 32.6 (H) 27.5 - 32.1 pg MCHC 34.1 32.0 - 35.7 g/dL Platelets 189 145 - 357 x10(3)/mcL RDWSD 54.2 (H) 36.0 - 45.0 fL RDWCV 15.4 (H) 11.4 - 13.8 % MPV 9.1 7.6 - 12.9 fL nRBC % Auto 0.0 % nRBC Abs Auto 0.000 0.000 - 0.000 x10(3)/mcL Differential, Automated Result Value Ref Range Neutrophils % 63.9 % Neutr Abs (ANC) 5.09 1.70 - 6.10 x10(3)/mcL Lymphocytes % 29.2 % Lymphocytes Abs 2.3 0.9 - 3.2 x10(3)/mcL Monocytes % 3.5 % Monocyte Abs 0.3 0.3 - 0.9 x10(3)/mcL Eosinophils % 2.0 % Eosinophils Abs 0.2 0.0 - 0.4 x10(3)/mcL Basophils % 0.9 % Basophils Abs 0.1 0.0 - 0.1 x10(3)/mcL Immature Gran % 0.50 % Roro Gran Abs 0.04 0.00 - 0.04 x10(3)/mcL Gold Tube HOLD Result Value Ref Range Gold Hold Sample in lab. Pathology: No new pathology to review 02/04/22 [...] taper. Pt prefers to get labs at [facility]. We'll send orders and I'll ask our pharmacology professor to f/u on results. Advised pt to [...] Cabometyx with minimal side effects. Follows with lint cleaner Dr. Pringle, with plans to taper him off budesonide. We will continue current regiment with Cabometyx 20 mg a day. We will see him back in 4-5 weeks with blood work. We will plan for restaging CT scan in 8-9 weeks #Hypothyroid: TSH slightly elevated. T4 wnl. Continue [...] 9:15 AM EDT Laboratory Appointment Lab at [facility] Hematology Oncology [address] [place] [address] 02/16/2024 10:20 AM EDT Hospital Encounter CT Scan at [place] [phone] Mitali Griffiths APRN [facility] DR HEMATOLOGY [place] [address] 02/16/2024 1:30 PM EDT Office Visit Hematology [place] [address] Albino Costello MD [facility] DR HEMATOLOGY [place] [address] 04/17/2024 10:00 AM EST Office Visit Dermatology at [facility] [address] [place] [address] Oli Winter MD [address] [facility] [place] [address] documented as of this encounter Visit Diagnoses Diagnosis Metastatic 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, unspecified laterality Abnormal thyroid function test Nonspecific abnormal results of thyroid function study Autoimmune hepatitis Renal cell carcinoma of left kidney High risk medication use Encounter for long-term (current) use of other medications documented in this encounter Care Teams Trade Specialist Relationship Specialty Start Date End Date Juan Dempsey MD [address] [place] [address] PCP - General Emergency Medicine 08/20/21 documented as of this encounter
--- OUTSIDE RECORDS SUMMARY | 2024-02-03 16:53 | XMS_ITS | Encounter Summary ---
Author Organization [facility] Address [facility] [place] [address] Care Team Providers Care Machine Set Up Technician Name Role Phone Juan Dempsey MD Primary Care Provider [phone] Encounter Details Date Type Department Care Team (Latest Contact Info) Description 10/14/2022 Travel Social History Tobacco Use Types Packs/Day [...] [facility] Hematology Oncology [address] [place] [address] 02/16/2024 10:20 AM EDT Hospital [place] [phone] Mitali Griffiths APRN [facility] DR [place] [address] 02/16/2024 1:30 PM EDT Office Visit Hematology [place] [address] Albino Bartholomew MD [facility] DR [place] [address] 04/17/2024 10:00 AM EST Office Visit Dermatology at [facility] [address] [place] [address] Oli Winter MD [address] [facility] [place] [address] documented as of this encounter Visit Diagnoses Not on filedocumented in this encounter Care Teams Machine Set Up Technician Relationship Specialty Start Date End Date Juan Dempsey MD [address] [place] [address] PCP - General Emergency Medicine 08/20/21 documented as of this encounter
--- OUTSIDE RECORDS SUMMARY | 2024-02-03 16:53 | XMS_ITS | Encounter Summary ---
Author Organization [facility] Address [facility] [place] [address] Care Team Providers Care Tar Distillation Supervisor Name Role Phone Juan Dempsey MD Primary Care Provider [phone] Encounter Details Date Type Department Care Team (Latest Contact Info) Description 10/28/2022 Travel Social History Tobacco Use Types Packs/Day [...] [facility] Hematology Oncology [address] [place] [address] 02/16/2024 10:20 AM EDT Hospital [place] [address] Mitali Griffiths APRN [facility] DR [place] [address] 02/16/2024 1:30 PM EDT Office Visit Hematology [place] [address] Albino Bartholomew MD [facility] DR [place] [address] 04/17/2024 10:00 AM EST Office Visit Dermatology at [facility] [address] [place] [address] Oli Winter MD [address] [facility] [place] [address] documented as of this encounter Visit Diagnoses Not on filedocumented in this encounter Care Teams Tar Distillation Supervisor Relationship Specialty Start Date End Date Juan Dempsey MD [address] [place] [address] PCP - General Emergency Medicine 08/20/21 documented as of this encounter
--- OUTSIDE RECORDS SUMMARY | 2024-02-03 16:54 | XMS_ITS | Encounter Summary ---
Author Organization [facility] Address [facility] [place] [address] Care Team Providers Care It Operations Specialist Name Role Phone Juan Dempsey MD Primary Care Provider [phone] Encounter Details Date Type Department Care Team (Latest Contact Info) Description 06/25/2022 Travel Social History Tobacco Use Types Packs/Day [...] [facility] [place] [address] [place] [address] 02/16/2024 10:20 AM EDT Hospital [place] [phone] Mitali Griffiths APRN [facility] DR HEMATOLOGY [place] [address] 02/16/2024 1:30 PM EDT Office Visit Hematology [place] [address] Albino Bartholomew MD [facility] DR HEMATOLOGY [place] [address] 04/17/2024 10:00 AM EST Office Visit Dermatology at [facility] [address] [place] [address] Oli Winter MD [address] [facility] [place] [address] documented as of this encounter Visit Diagnoses Not on filedocumented in this encounter Care Teams It Operations Specialist Relationship Specialty Start Date End Date Juan Dempsey MD [address] [place] [address] PCP - General Emergency Medicine 08/20/21 documented as of this encounter
--- OUTSIDE RECORDS SUMMARY | 2024-02-03 16:54 | XMS_ITS | Encounter Summary ---
Author Organization [facility] Address [facility] [place] [address] Care Team Providers Care Cutting And Creasing Press Operator Name Role Phone Juan Dempsey MD Primary Care Provider [phone] Encounter Details Date Type Department Care Team (Latest Contact Info) Description 07/06/2022 Travel Social History Tobacco Use Types Packs/Day [...] AM EDT Laboratory Appointment Lab at [facility] Hematology Oncology [address] [place] [address] 02/16/2024 10:20 AM EDT Hospital [place] [phone] Mitali Griffiths APRN [facility] DR [place] [address] 02/16/2024 1:30 PM EDT Office Visit [place]ematology [place] [address] Albino Bartholomew MD [facility] DR [place] [address] 04/17/2024 10:00 AM EST Office Visit Dermatology at [facility] [address] [place] [address] Oli Winter MD [address] [facility] [place] [address] documented as of this encounter Visit Diagnoses Not on filedocumented in this encounter Care Teams Cutting And Creasing Press Operator Relationship Specialty Start Date End Date Juan Dempsey MD [address] [place] [address] PCP - General Emergency Medicine 08/20/21 documented as of this encounter
--- OUTSIDE RECORDS SUMMARY | 2024-02-03 16:54 | XMS_ITS | Encounter Summary ---
Author Organization [facility] Address [facility] [place] [address] Care Team Providers Care Ui Designer Name Role Phone Juan Dempsey MD Primary Care Provider [phone] Encounter Details Date Type Department Care Team (Late st Contact Info) Description 09/07/2022 Telephone Hematology [place] [address] Daxa Arriola RN Social History [...] Telephone Encounter - Daxa Arriola RN - 09/07/2022 7:49 AM EDT Message received from triage pool: Patient stopped Cabometyx as of 09/01. Please call and check in with him to see how symptoms are. S/O: Call placed to pt to discuss above. Pt reports that foot pain has resolved, little bit of tenderness in fingertips since starting Cabometyx, unchanged, callous is improving. Stopped taking Cabometyx last Wednesday. Pt reports pain and tingling in bilateral heels and under 5th toe has resolved, 0/10. Gait is back to normal. P: Per Albino Bartholomew MD, pt instructed to restart Cabometyx at prescribed dose of 40 mg daily. Pt advised to call office at [phone] with any worsening symptoms or concerns. Pt verbalized understanding and agreement with plan. documented in this encounter Plan of Treatment Upcoming Encounters Date Type Department Care Team (Late st Contact Info) Description 02/16/2024 9:15 AM EDT Laboratory Appointment Lab at [facility] Hematology Oncology [address] [place] [address] 02/16/2024 10:20 AM EDT Hospital [place] [address] Mitali Griffiths APRN [facility] [place] [address] 02/16/2024 1:30 PM EDT Office Visit Hematology [place] [address] Albino Bartholomew MD [facility] [place] [address] 04/17/2024 10:00 AM EST Office Visit Dermatology at [facility] [address] [place] [address] Oli Winter MD [address] [facility] [address] documented as of this encounter Visit Diagnoses Not on filedocumented in this encounter Care Teams Ui Designer Relationship Specialty Start Date End Date Juan Dempsey MD [address] [place] [address] PCP - General Emergency Medicine 08/20/21 documented as of this encounter
--- OUTSIDE RECORDS SUMMARY | 2024-02-03 16:54 | XMS_ITS | Encounter Summary ---
Author Organization [facility] Address [facility] [place] [address] Care Team Providers Care Wagon Driller Name Role Phone Juan Dempsey MD Primary Care Provider [phone] Encounter Details Date Type Department Care Team (Latest Contact Info) Description 09/09/2022 Travel Social History Tobacco Use Types Packs/Day [...] 9:15 AM EDT Laboratory Appointment Lab at [facility] Hematology Oncology [address] [place] [address] 02/16/2024 10:20 AM EDT Hospital Encounter [place] [phone] Mitali Griffiths APRN [facility] DR HEMATOLOGY [place] [address] 02/16/2024 1:30 PM EDT Office Visit Hematology [place] [address] Albino Bartholomew MD [facility] DR HEMATOLOGY [place] [address] 04/17/2024 10:00 AM EST Office Visit Dermatology at [facility] [address] [place] [address] Oli Winter MD [address] [facility] [address] documented as of this encounter Visit Diagnoses Not on filedocumented in this encounter Care Teams Wagon Driller Relationship Specialty Start Date End Date Juan Dempsey MD [address] [place] [address] PCP - General Emergency Medicine 08/20/21 documented as of this encounter
--- OUTSIDE RECORDS SUMMARY | 2024-02-03 16:54 | XMS_ITS | Encounter Summary ---
Author Organization [facility] Address [facility] [place] [address] Care Team Providers Care Director Shopper Marketing Name Role Phone Juan Dempsey MD Primary Care Provider Encounter Details Date Type Department Care Team (Late st Contact Info) Description 06/18/2022 External Results [place] [address] Ana Pringle MD [facility] [place] [address] Social History Tobacco Use Types Packs/Day Years [...] [facility] H[facility] Oncology [address] [place] [address] 02/16/2024 10:20 AM EDT Hospital [place] [address]1000 Mitali Griffiths APRN [facility] DR HEMATOLOGY [place] [address] 02/16/2024 1:30 PM EDT Office Visit Hematology [place] [address] Albino Bartholomew MD [facility] DR HEMATOLOGY [place] [address] 04/17/2024 10:00 AM EST Office Visit Dermatology at [facility] [address] [place] [address] Oli Winter MD [address] [facility] [place] [address] documented as of this encounter Procedures Procedure Name Priority Date/Time Associated Diagnosis Comments EXTERNAL LAB CBC CMP THYROID RESULTS PANEL Routine 06/17/2022 documented in this encounter Results * CBC / CMP / Thyroid External Results (06/17/2022) Protein, Total 6.9 Albumin 3.7 Bilirubin, Total 0.6 Alkaline Phosphatase 126 Aspartate Aminotransferase 60 Alanine Aminotransferase 146 Historical Provider EXTERNAL LAB SUNITHA SERRANO documented in this encounter Visit Diagnoses Not on filedocumented in this encounter Care Teams Director Shopper Marketing Relationship Specialty Start Date End Date Juan Dempsey MD [address] [place] [address] PCP - General Emergency Medicine 08/20/21 documented as of this encounter
--- OUTSIDE RECORDS SUMMARY | 2024-02-03 16:54 | XMS_ITS | Encounter Summary ---
Author Organization [facility] Address [facility] [place] [address] Care Team Providers Care Environmental Field Professional Name Role Phone Juan Dempsey MD Primary Care Provider [phone] Reason for Visit * Reason Comments Follow-up Encounter Details Date Type Department Care Team (Late st Contact Info) Description 08/12/2022 2:00 PM EDT Office Visit Hematology [place] [address] Albino Bartholomew MD [facility] DR HEMATOLOGY [place] [address] Kyle Donohue PA [facility] DR HEMATOLOGY [place] [address] Metastatic 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, unspecified laterality; High risk medication use; Abnormal thyroid function test; Right kidney mass; Elevated LFTs Social History Tobacco Use Types [...] Sign Reading Time Taken Comments Blood Pressure 124/81 08/12/2022 2:11 PM EDT Pulse 76 08/12/2022 2:11 PM EDT Temperature 36.8 ??C (98.2 ??F) 08/12/2022 2:11 PM ED T Respiratory Rate 20 08/12/2022 2:11 PM EDT Oxygen Saturation 95% 08/12/2022 2:11 PM EDT Inhaled Oxygen Concentration - - Weight 93 kg (205 lb 0.4 oz) 08/12/2022 2:11 PM EDT Height 181.3 cm (5' 11.38) 08/12/2022 2:11 PM E DT Body Mass Index 28.29 08/12/2022 2:11 PM EDT documented in this encounter Progress Notes * Albino Bartholomew MD - 08/12/2022 2:00 PM EDT Images from the original note [...] renal cell carcinoma and cabozantinib toxicity check. Overall, he tolerates cabozantinib reasonably well with some dry skin and mild soreness of the throat and occasional loose bowel movements. He denies any pain.. No nausea or vomiting. Patient Active Problem List Diagnosis Code ??? Renal mass N28.89 ??? Renal cell carcinoma C64.9 ??? Medication management Z79.899 PMH, PSH, and current medications reviewed, as documented in the electronic medical record. Current Outpatient Medications Medication Instructions ??? acetaminophen (TYLENOL) 650-975 mg, Oral, EVERY 6 HOURS PRN ??? amLODIPine (Norvasc) 10 mg Tablet TAKE ONE TABLET BY MOUTH EVERY DAY FOR BLOOD PRESSURE ??? budesonide EC (ENTOCORT EC) 6 mg, Oral, EVERY MORNING ??? cabozantinib (CABOMETYX) 40 mg, Oral, DAILY, Take on an empty stomach. Call clinic before starting medication. ??? chlorthalidone (HYGROTEN) 25 mg, Oral, DAILY ??? diphenhydrAMINE (BENADRYL) 25 mg, Oral, EVERY 6 HOURS PRN, For seasonal allergies ??? Eliquis 5 mg, Oral, 2 TIMES DAILY ??? losartan (COZAAR) 100 mg, Oral, DAILY ??? meclizine (ANTIVERT) 25 mg, Oral, 3 TIMES DAILY PRN ??? 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 Wt Readings from Last 3 Encounters: 08/12/22 93 kg (205 lb 0.4 oz) 06/26/22 95 kg (209 lb 7 oz) 05/20/22 98.2 kg (216 lb 9.6 oz) ECOG PS: 0 General: NAD, pleasant, well-appearing Head: NCAT Eyes: Non-injected, anicteric. Neck: Normal ROM, supple. Cardiovascular: RRR, no murmur. Resp: Effort normal. No respiratory distress. CTAB. Abdominal: Soft, NT, ND, no appreciable masses, organomegaly or ascites. +umbilical hernia. Back: No abnormal curvature, spinal or CVA tenderness. Skin: Skin is warm??and dry. No rash??or lesions noted on limited exam. No pallor. Musculoskeletal: Normal range of motion, ambulatory without assist. Extremities: L LE edema (stable). Neurological: Alert & oriented, no focal deficits. Heme: No cervical or supraclavicular adenopathy. Psych: Conversant, normal mood and affect. Vitals: BP 124/81 Pulse 76 Temp 36.8 ??C (98.2 ??F) (Temporal) Resp 20 Ht 181.3 cm (5' 11.38) Wt 93 kg (205 lb 0.4 oz) SpO2 95% BMI 28.29 kg/m?? Lab results: Recent Results (from the past 24 hour(s)) Comprehensive metabolic panel (non-fasting) Result Value Ref Range Glucose Lvl 107 65 - 199 mg/dL BUN 17 10 - 20 mg/dL Creatinine 1.20 0.80 - 1.50 mg/dL Sodium 144 135 - 145 mmol/L Potassium 3.8 3.5 - 5.0 mmol/L Chloride 108 (H) 98 - 107 mmol/L CO2 28 22 - 31 mmol/L Anion Gap 8 5 - 15 mmol/L Calcium 8.8 8.5 - 10.5 mg/dL Total Protein 6.2 6.1 - 8.0 g/dL Albumin 4.0 3.2 - 5.2 g/dL AST 42 (H) 0 - 39 unit/L ALT 78 (H) 0 - 55 unit/L Alk Phos 111 40 - 130 unit/L Total Bilirubin 0.5 0.2 - 1.3 mg/dL Estimated GFR 66 >=60 mL/min/1.73 m?? TSH Result Value Ref Range TSH 16.70 (H) 0.27 - 4.20 mcIU/mL T4, free Result Value Ref Range Free T4 1.18 0.93 - 1.70 ng/dL Hemogram Result Value Ref Range WBC 6.8 4.0 - 9.5 x10(3)/mcL RBC 3.85 (L) 4.58 - 5.54 x10(6)/mcL Hemoglobin 12.9 (L) 13.7 - 16.5 g/dL Hematocrit 37.7 (L) 40.5 - 48.5 % MCV 97.9 (H) 82.9 - 93.1 fL MCH 33.5 (H) 27.5 - 32.1 pg MCHC 34.2 32.0 - 35.7 g/dL Platelets 165 145 - 357 x10(3)/mcL RDWSD 51.8 (H) 36.0 - 45.0 fL RDWCV 14.5 (H) 11.4 - 13.8 % MPV 9.7 7.6 - 12.9 fL nRBC % Auto 0.0 % nRBC Abs Auto 0.000 0.000 - 0.000 x10(3)/mcL Differential, Automated Result Value Ref Range Neutrophils % 68.7 % Neutr Abs (ANC) 4.64 1.70 - 6.10 x10(3)/mcL Lymphocytes % 22.8 % Lymphocytes Abs 1.5 0.9 - 3.2 x10(3)/mcL Monocytes % 4.4 % Monocyte Abs 0.3 0.3 - 0.9 x10(3)/mcL Eosinophils % 2.7 % Eosinophils Abs 0.2 0.0 - 0.4 x10(3)/mcL Basophils % 1.0 % Basophils Abs 0.1 0.0 - 0.1 x10(3)/mcL Immature Gran % 0.40 % Roro Gran Abs 0.03 0.00 - 0.04 x10(3)/mcL Bilirubin, Direct Result Value Ref Range Bili, Direct 0.2 0.0 - 0.3 mg/dL Pathology: No new pathology to review 02/04/22 DIAGNOSIS A - Lung, left, core biopsy: - Metastatic clear cell renal cell carcinoma. 10/02/21 (colonoscopy/biopsy): DIAGNOSIS A - Transverse colon polyp, resection: - ??Tubular adenoma. 06/03/21: Tumor Focality: ??Unifocal ?Tumor Site: ??Middle; ??Lower pole ?Tumor Size: ??17 Centimeters (cm) ?Histologic Type: ??Clear cell renal cell carcinoma ? Histologic Grade (WHO / ISUP): ??G4 ?Tumor Extent: ??Extends into perinephric tissue (beyond renal capsule); ?Extends into renal sinus; ??Extends into major vein (renal vein or its ? segmental branches, inferior vena cava); ??Extends into pelvicalyceal system ?Sarcomatoid Features: ??Not identified ?Rhabdoid Features: ??Present ?Tumor Necrosis: ??Present ? Percentage of Tumor Necrosis: ??10% ?Lymphovascular Invasion: ??Present Margins ?Margin Status: ??All margins negative for invasive carcinoma Regional Lymph Nodes ?Regional Lymph Node Status: ??Tumor present in regional lymph node(s) ? Number of Lymph Nodes with Tumor: ??1 ? Robert Site(s) with Tumor: ??Hilar ? Size of Largest Robert Metastatic Deposit: ??Less than 0.1 cm SYNOPTIC ? Size of Largest Lymph Node with Tumor: ??0.7 cm ?Number of Lymph Nodes Examined: ??3 Pathologic Stage Classification (pTNM, AJCC 8th Edition) ?Primary Tumor (pT): ??pT3a ?Regional Lymph Nodes (pN): ??pN1 Imagin08/12/22 abdominal MRI: IMPRESSION ?? 1. Lesion of concern in the upper pole right kidney is a small hemorrhagic cyst. 2. No suspicious or enhancing renal lesions. 3. Stable left nephrectomy surgical bed. No evidence of local recurrence. ?? 06/26/22 CT CAP: IMPRESSION 1. Slight interval [...] tumor recurrence. No evidence of abdominal metastasis. ?? 02/05/22 brain MRI: IMPRESSION No evidence of metastatic neoplasm. ?? 01/16/22 CT chest: IMPRESSION New and enlarging pulmonary nodules as described above, concerning for metastatic disease 11/07/21 MRI Abdomen: IMPRESSION No evidence of local recurrence or metastatic disease in the abdomen and pelvis. 10/20/21 CXR ([facility]): 10/16/21: IMPRESSION 1. Unexpected finding: New 6 mm anterior upper lobe pulmonary nodule. 2. New tree-in-bud centrilobular nodularity right middle and lower lobes in keeping with an infectious or inflammatory process. Follow-up to ensure complete resolution suggested. 3. Stable exophytic 14 mm right renal cyst. 4. Interval retraction of left retroperitoneal inflammatory changes. 07/20/21 CT C/A/P: IMPRESSION ?? 1. Post LEFT nephrectomy since the previous [...] cabozantinib reduced to 40 mg a day We reviewed his diagnosis [...] for this reason we would favor pembrolizumab. ?? After discussion, the patient feels that the [...] Pt prefers to get labs at [facility]. We'll send orders and I'll ask our lab support service tech to f/u on results. Advised pt to [...] reasonably well. We will continue current regimen. #Elevated TSH: Free T4 is still within normal range, subclinical hypothyroidism?, We will start himon levothyroxine 50 mcg a day. #I right kidney mass: Hemorrhagic cyst on MRI. Not suspicious for solid tumor.. Concern for possible solid mass arising at the site of prior cyst, versus blood products. We will schedule kidney ultrasound next visit #Garrett LE DVT: continue Eliquis per PCP. #Immune-mediated transaminitis: AST ALT ALT are slightly elevated, he is currently on 6 mg of [...] or concerns and he agreed. Plan: - [id number] mcg a day - Continue Cabometyx 40 mg -Next visit in 4-5 weeks with CBC, CMP, TSH, free T4 The plan was discussed with patient in details. All questions were answered to patient's satisfaction. documented in this encounter Plan of Treatment Upcoming Encounters Date Type Department Care Team (Late st Contact Info) Description 02/16/2024 9:15 AM EDT Laboratory Appointment Lab at [facility] Hematology Oncology [address] [place] [address] 02/16/2024 10:20 AM EDT Hospital [place] [address] Mitali Griffiths APRN [facility] DR HEMATOLOGY [place] [address] 02/16/2024 1:30 PM EDT Office Visit Hematology [place] [address] Albino Bartholomew MD [facility] DR HEMATOLOGY [place] [address] 04/17/2024 10:00 AM EST Office Visit Dermatology at [facility] [address] [place] [address] Oli Winter MD [address] [facility] [place] [address] documented as of this encounter Visit Diagnoses Diagnosis Metastatic 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, unspecified laterality High risk medication use Encounter for long-term (current) use of other medications Abnormal thyroid function test Nonspecific abnormal results of thyroid function study Right kidney mass Unspecified disorder of kidney and ureter Elevated LFTs Other abnormal blood chemistry documented in this encounter Care Teams Environmental Field Professional Relationship Specialty Start Date End Date Juan Dempsey MD [address] [place] [address] PCP - General Emergency Medicine 08/20/21 documented as of this encounter
--- OUTSIDE RECORDS SUMMARY | 2024-02-03 16:54 | XMS_ITS | Encounter Summary ---
Author Organization [facility] Address [facility] [place] [address] Care Team Providers Care Power Press Supervisor Name Role Phone Juan Dempsey MD Primary Care Provider [phone] Encounter Details Date Type Department Care Team (Latest Contact Info) Description 08/11/2022 Travel Social History Tobacco Use Types Packs/Day [...] AM EDT Laboratory Appointment Lab at [facility] Hematology Oncology [address] [place] [address] 02/16/2024 10:20 AM EDT Hospital [place] [address] Mitali Griffiths APRN [facility] DR HEMATOLOGY [place] [address] 02/16/2024 1:30 PM EDT Office Visit Hematology [place] [address] Albino Bartholomew MD [facility] DR HEMATOLOGY [place] [address] 04/17/2024 10:00 AM EST Office Visit Dermatology at [facility] [address] [place] [address] Oli Winter MD [address] [facility] [place] [address] documented as of this encounter Visit Diagnoses Not on filedocumented in this encounter Care Teams Power Press Supervisor Relationship Specialty Start Date End Date Juan Dempsey MD [address] [place] [address] PCP - General Emergency Medicine 08/20/21 documented as of this encounter
--- OUTSIDE RECORDS SUMMARY | 2024-02-03 16:54 | XMS_ITS | Encounter Summary ---
Author Organization Replaced By [facility] Address [facility] [place] [address] Care Team Providers Care Attending Urologist Name Role Phone Juan Dempsey MD Primary Care Provider [phone] Reason for Visit * Reason Comments Medication Refill Encounter Details Date Type Department Care Team (Late st Contact Info) Description 07/27/2022 Specialty [place] [phone] Talisha Holt, [facility] Social History Tobacco Use [...] as of this encounter Progress Notes * Talisha Holt RP - 07/27/2022 11:29 AM EDT Clinical Management Plan: Refill Specialty Pharmacy Consultation; Talisha Holt [facility] Comprehensive Medication Management (CMM) Cristofer Perezraymond Mr. Cristofer Tenorio is a 67 y.o. [...] ??? Peanut Medication Reconciliation Discrepancies (compared to [facility] med list) No Specialty Pharmacy Refill Questionnaire 07/27/2022 Refill Questionnaire What is the name of the specialty medication you are refilling? Cabometyx Are you taking any new medications? No Any new medical condition? No Any new allergies? No Any new side effects that are bothersome? No What date will you need this fill by? 08/04/2022 Multiple values from one day are sorted in reverse-chronological order Adherence: Any missed doses? No Patient understands no changes to current drug regimen were made. Talisha Holt RPH 07/27/22 11:31 AM documented in this encounter Plan of Treatment Upcoming Encounters Date Type Department Care Team (Late st Contact Info) Description 02/16/2024 9:15 AM EDT Laboratory Appointment Lab at [facility] Hematology Oncology [address] [place] [address] 02/16/2024 10:20 AM EDT Hospital Encounter CT Scan at [place] [phone] Mitali Griffiths APRN [facility] [address] [place] [address] 02/16/2024 1:30 PM EDT Office Visit Hematology and Oncology at [place] [phone] Albino Bartholomew MD [facility] DR [place] [address] 04/17/2024 10:00 AM EST Office Visit Dermatology at [facility] [address] [place] [phone] Oli Winter MD [address] [facility] [place] [address] documented as of this encounter Visit Diagnoses Not on filedocumented in this encounter Care Teams Attending Urologist Relationship Specialty Start Date End Date Juan Dempsey MD [address] [place] [address] PCP - General Emergency Medicine 08/20/21 documented as of this encounter
--- OUTSIDE RECORDS SUMMARY | 2024-02-03 16:54 | XMS_ITS | Encounter Summary ---
Author Organization [facility] [place] [address] Care Team Providers Care Adjustment Clerk Name Role Phone Juan Dempsey MD Primary Care Provider [phone] Reason for Referral * Diagnostic Test (Routine) - Closed Specialty Diagnoses / Procedures Referred By Contac t Referred To Contact Radiology Diagnoses Right kidney mass Renal cell carcinoma of left kidney Procedures MRI Abdomen wwo Contrast (Generic) Albino Bartholomew MD [facility] DR HEMATOLOGY [place] [address] [place] [address] Referral ID Status Reason Start Date Expiration Date V isits Requested Visits Authorized [id number] Closed Specialty Service Requested 07/22/2022 01/23/2024 1 1 Encounter Details Date Type Department Care Team (Late st Contact Info) Description 07/22/2022 Orders Only [place]ematology [place] [address] Albino Bartholomew MD [facility] HEMATOLOGY [place] [address] Right kidney mass (Primary Dx); Renal cell carcinoma of left kidney Social History Tobacco Use Types Packs/Day Years [...] AM EDT Laboratory Appointment Lab at [facility] Hematology Oncology [address] [place] [address] 02/16/2024 10:20 AM EDT Hospital [place] [address] Mitali Griffiths, [employer] [facility] HEMATOLOGY [place] [address] 02/16/2024 1:30 PM EDT Office Visit [place]ematology [place] [address] Albino Bartholomew MD [facility] HEMATOLOGY [place] [address] 04/17/2024 10:00 AM EST Office Visit Dermatology at [facility] [address] [place] [address] Oli Winter MD [address] [facility] [place] [address] documented as of this encounter Results * MRI Abdomen wwo Contrast (Generic) (08/12/2022 8:10 AM EDT) Anatomical Region Laterality Modality Abdomen Magnetic Resonan ce Impressions 08/12/2022 9:58 AM EDT 1. ??Lesion of concern in the upper pole right kidney is a small hemorrhagic cyst. 2. ??No suspicious or enhancing renal lesions. 3. ??Stable left nephrectomy surgical bed. No evidence of local recurrence. I have personally reviewed the image(s) and the resident's interpretation and agree with the findings, Jd Muller, DO at 08/12/2022 9:58 AM Thank you for letting us participate in the care of this patient. ??If you are a health care provider and have any questions regarding this report, please contact the number below. ??For patients who have questions please contact the health career based intervention coordinator that requested your imaging first. ? Narrative 08/12/2022 9:58 AM EDT EXAMINATION: MRI ABDOMEN WWO CONTRAST (GENERIC) CLINICAL HISTORY: Kidney cancer suspected, suspicious mass; Kidney cancer, follow up Exophytic mass arising from right kidney, please evaluate, patient with metastatic renal cell carcinoma. TECHNIQUE: MRI of the abdomen prior to and following the intravenous administration of 19ml Dotarem. COMPARISON: MR abdomen 02/06/2022, CT chest abdomen pelvis 06/26/2022 FINDINGS: Civil Rights Investigator Images: Noncontributory. Right Kidney: Lesion of concern arising from the posterior upper pole of the right kidney is a 1.1 cm T1 hyperintense, T2 hypointense nonenhancing lesion, consistent with a hemorrhagic cyst. Multiple additional simple cysts are present in the right kidney, largest 1.3 cm in the anterior upper pole. No suspicious lesions. Left Kidney: Status post left nephrectomy. No nodularity or enhancement in the resection bed. Liver: Normal size and signal intensity. No lesions. Bile ducts: Nondilated. Gallbladder: No gallstones. Normal caliber wall. Pancreas: Stable 1.2 cm cystic lesion in the pancreatic body without suspicious features. Additional smaller cystic lesions are also unchanged. Spleen: Normal. Adrenals: Normal. Vasculature: No aneurysm. Lymph nodes: No enlarged lymph nodes. Bowel: Nondilated, no inflammatory changes. Peritoneum and mesentery: No ascites or loculated fluid collection. Abdominal wall: Small fat-containing umbilical hernia. Marrow Signal: Normal. Procedure Note Jd Muller DO - 08/12/2022 EXAMINATION: MRI ABDOMEN WWO CONTRAST (GENERIC) CLINICAL HISTORY: Kidney cancer suspected, suspicious mass; Kidneycancer, follow up Exophytic mass arising from right kidney, please evaluate, patient with metastatic renal cell carcinoma. TECHNIQUE: MRI of the abdomen prior to and following the intravenous administration of 19ml Dotarem. COMPARISON: MR abdomen 02/06/2022, CT chest abdomen pelvis 06/26/2022 FINDINGS: Civil Rights Investigator Images: Noncontributory. Right Kidney: Lesion of concern arising from the posterior upper pole ofthe right kidney is a 1.1 cm T1 hyperintense, T2 hypointense nonenhancinglesion, consistent with a hemorrhagic cyst. Multiple additional simple cysts arepresent in the right kidney, largest 1.3 cm in the anterior upper pole. Nosuspicious lesions. Left Kidney: Status post left nephrectomy. No nodularity or enhancement inthe resection bed. Liver: Normal size and signal intensity. No lesions. Bile ducts: Nondilated. Gallbladder: No gallstones. Normal caliber wall. Pancreas: Stable 1.2 cm cystic lesion in the pancreatic body withoutsuspicious features. Additional smaller cystic lesions are also unchanged. Spleen: Normal. Adrenals: Normal. Vasculature: No aneurysm. Lymph nodes: No enlarged lymph nodes. Bowel: Nondilated, no inflammatory changes. Peritoneum and mesentery: No ascites or loculated fluid collection. Abdominal wall: Small fat-containing umbilical hernia. Marrow Signal: Normal. IMPRESSION 1. Lesion of concern in the upper pole right kidney is a smallhemorrhagic cyst. 2. No suspicious or enhancing renal lesions. 3. Stable left nephrectomy surgical bed. No evidence of localrecurrence. I have personally reviewed the image(s) and the resident's interpretationand agree with the findings, Jd Muller DO at 08/12/2022 9:58 AM Thank you for letting us participate in the care of this patient. If youare a health care provider and have any questions regarding this report,please contact the number below. For patients who have questions please contactthe health career based intervention coordinator that requested your imaging first. Albino Bartholomew MD IMG MRI ORDERABLES documented in this encounter Visit Diagnoses Diagnosis Right kidney mass- Primary Unspecified disorder of kidney and ureter Renal cell carcinoma of left kidney Right kidney mass Unspecified disorder of kidney and ureter Renal cell carcinoma of left kidney documented in this encounter Care Teams Adjustment Clerk Relationship Specialty Start Date End Date Juan Dempsey MD [address] [place] [address] PCP - General Emergency Medicine 08/20/21 documented as of this encounter
--- OUTSIDE RECORDS SUMMARY | 2024-02-03 16:54 | XMS_ITS | Encounter Summary ---
Author Organization [facility] Address [facility] [place] [address] Care Team Providers Care Python Architect Name Role Phone Juan Dempsey MD Primary Care Provider Reason for Visit * Reason Comments Specialty Pharmacy Review Cabometyx 40mg tablet Encounter Details Date Type Department Care Team (Late st Contact Info) Description 06/26/2022 Specialty [place] [phone] Kelin Chong, [facility] Social [...] encounter Progress Notes * Kelin Chong - 06/26/2022 11:59 PM EST The [facility] has completed a benefits investigation for Cristofer Tenorio to review their eligibility to fill at [facility]. Per patient's medication list they are prescribedCabometyx 40mg tablet and the medication is able to be filled at the [facility]. The patient is currently filling the medication through Specialty Pharmacy with a $0 copay. PA approved until 2025 documented in this encounter Plan of Treatment Upcoming Encounters Date Type Department Care Team (Late st Contact Info) Description 02/16/2024 9:15 AM EDT Laboratory Appointment Lab at [facility] Hematology Oncology [address] [place] [address] 02/16/2024 10:20 AM EDT Hospital [place] [address] Mitali Griffiths APRN [facility] DR [place] [address] 02/16/2024 1:30 PM EDT Office Visit Hematology [place] [address] Albino Bartholomew MD [facility] DR [place] [address] 04/17/2024 10:00 AM EST Office Visit Dermatology at [facility] [address] [place] [address] Oli Winter MD [address] [facility] [place] [address] documented as of this encounter Visit Diagnoses Not on filedocumented in this encounter Care Teams Python Architect Relationship Specialty Start Date End Date Juan Dempsey MD [address] [place] [address] PCP - General Emergency Medicine 08/20/21 documented as of this encounter
--- OUTSIDE RECORDS SUMMARY | 2024-02-03 16:54 | XMS_ITS | Encounter Summary ---
Author Organization [facility] Address [facility] [place] [address] Care Team Providers Care Curator Of Education Name Role Phone Juan Dempsey MD Primary Care Provider [phone] Reason for Visit * Reason Comments Specialty Refill Management Encounter Details Date Type Department Care Team (Late st Contact Info) Description 08/25/2022 Specialty [place] [id number] Reshma Gar, [facility] Social History Tobacco Use Types Packs/Day [...] this encounter Progress Notes * Reshma Gar [facility] - 08/25/2022 12:14 PM EDT Clinical Management Plan: Refill Specialty Pharmacy Consultation; Reshma Gar [facility] Comprehensive Medication Management (CMM) Cristofer Oh Daevy Mr. Cristofer Tenorio is a 67 y.o. [...] a change made to the Care Plan: no If yes, should the medication be held: No Assessment and Recommendations: Medication Management Type of Medication Management: targeted medication review Referred By: provider Recipient: beneficiary Provider: plan sponsor pharmacist [facility] Follow-up Time Spent: 1-15 min Method of Contact: by telephone Cognitive Ability: good Cognitive Impairment Status Verified this Year: no Allergies and Drug intolerance: Allergies Allergen Reactions ??? Grass Pollen-Orchardgrass, Standard ??? Peanut Medication Reconciliation Discrepancies (compared to [facility] med list) -n/a Specialty Pharmacy Refill Questionnaire 08/25/2022 Refill Questionnaire What is the name of the specialty medication you are refilling? cabozantinib Are you taking any new medications? Yes Please explain levothyroxine Any new medical condition? No Any new allergies? No Any missed doses since your last fill? 0 Any new side effects that are bothersome? No What date will you need this fill by? 09/03/2022 Adherence: Specialty Med Adherence Patient Demonstrates Understanding of Importance of Adherence: Yes Educational Information or Adherence Tools Provided: Yes Patient Reported X Missed Doses in the Last Month: 0 Provider-Estimated Medication Adherence Level: 90-100% Adherence Tools Used: calendar Pt understands no changes to current drug regimen were made at the appointment and that [facility] is providing recommendations (summary located at top of note) for provider review and follow up. Reshma Gar [facility] 08/25/22 12:17 PM documented in this encounter Plan of Treatment Upcoming Encounters Date Type Department Care Team (Late st Contact Info) Description 02/16/2024 9:15 AM EDT Laboratory Appointment [facility] [place] [facility] [place] [address] [place] [address] 02/16/2024 10:20 AM EDT Hospital [place] [phone] Mitali Griffiths APRN [facility] [address] [place] [address] 02/16/2024 1:30 PM EDT Office Visit Hematology [place] [phone] Albino Bartholomew MD [facility] [address] [place] [address] 04/17/2024 10:00 AM EST Office Visit Dermatology at [facility] [address] [place] [address] Oli Winter MD [address] [facility] [place] [address] documented as of this encounter Visit Diagnoses Not on filedocumented in this encounter Care Teams Curator Of Education Relationship Specialty Start Date End Date Juan Dempsey MD [address] [place] [address] PCP - General Emergency Medicine 08/20/21 documented as of this encounter
--- OUTSIDE RECORDS SUMMARY | 2024-02-03 16:54 | XMS_ITS | Encounter Summary ---
Author Organization [facility] Address [place] [address] Care Team Providers Care Erp Analyst Name Role Phone Juan Dempsey MD Primary Care Provider [phone] Encounter Details Date Type Department Care Team (Late st Contact Info) Description 09/01/2022 Telephone [place] [address] Mary Salas RN Social History [...] Miscellaneous Notes * Telephone Encounter - Mary Salas, RN - 09/01/2022 4:16 PM EDT Per : He should hold cabometyx for 5 days to see if it helps. 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 Please check with him after he hold it for 5 days Call placed to patient updated him on the above. Patient will stop the Cabometyx as of today. business services sales representative will f/u on 09/07. documented in this encounter Plan of Treatment Upcoming Encounters Date Type Department Care Team (Late st Contact Info) Description 02/16/2024 9:15 AM EDT Laboratory Appointment Lab at [facility] Hematology Oncology [address] [place] [address] 02/16/2024 10:20 AM EDT Hospital [place] [phone] Mitali Griffiths APRN [facility] DR [place] [address] 02/16/2024 1:30 PM EDT Office Visit [place] [phone] Albino Bartholomew MD [facility] DR HEMATOLOGY [place] [address] 04/17/2024 10:00 AM EST Office Visit Dermatology at [address] [place] [address] Oli Winter MD [address] [facility] [place] [place] [address] documented as of this encounter Visit Diagnoses Not on filedocumented in this encounter Care Teams Erp Analyst Relationship Specialty Start Date End Date Juan Dempsey MD [address] [place] [address] PCP - General Emergency Medicine 08/20/21 documented as of this encounter
--- OUTSIDE RECORDS SUMMARY | 2024-02-03 16:54 | XMS_ITS | Encounter Summary ---
Author Organization [facility] [place] [address] Care Team Providers Care Salon Professional Name Role Phone Juan Dempsey MD Primary Care Provider [phone] Reason for Referral * Diagnostic Test (Routine) - Closed Specialty Diagnoses / Procedures Referred By Contac t Referred To Contact Radiology Diagnoses Right kidney mass Renal cell carcinoma of left kidney Procedures MRI Abdomen wwo Contrast (Generic) Albino Bartholomew MD [facility] DR HEMATOLOGY [place] [address] [place] [address] Referral ID Status Reason Start Date Expiration Date V isits Requested Visits Authorized [id number] Closed Specialty Service Requested 07/22/2022 01/23/2024 1 1 Reason for Visit * Diagnostic Test (Routine) - Closed Specialty Diagnoses / Procedures Referred By Contac t Referred To Contact Radiology Diagnoses Right kidney mass Renal cell carcinoma of left kidney Procedures MRI Abdomen wwo Contrast (Generic) Albino Bartholomew MD [facility] HEMATOLOGY [place] [address] [place] [address] Referral ID Status Reason Start Date Expiration Date V isits Requested Visits Authorized [id number] Closed Specialty Service Requested 07/22/2022 01/23/2024 1 1 Encounter Details Date Type Department Care Team (Latest Contact Info) Description 08/12/2022 6:48 AM EDT - 08/12/2022 8:26 AM EDT Hospital Encounter MRI at [facility] [place] [address] Albino Bartholomew MD [facility] DR HEMATOLOGY [place] [address] Right kidney mass; Renal cell carcinoma of left kidney Discharge [...] 04/11/2019 budesonide EC (Entocort EC) 3 mg Capsule, Delayed & Ext.ReleaseIndications :Autoimmune hepatitis Take 2 capsules by mouth every morning. 60 capsule 3 07/27/2022 11/23/2022 cabozantinib (Cabometyx) 40 mg tabletIndications:fatmata l cell carcinoma Take 1 tablet (40 mg) by mouth daily. Take on an empty stomach. Call clinic before starting medication. Indications: renal cell carcinoma 30 tablet 11 04/29/2022 09/16/2022 potassium chloride SA (Klor-con) 10 mEq Tab Sust.Rel. Particle/Crystal Take 1 tablet by mouth 2 times daily. 60 tablet 1 04/04/2022 08/24/2023 documented as of this encounter Plan of Treatment Upcoming Encounters Date Type Department Care Team (Late st Contact Info) Description 02/16/2024 9:15 AM EDT Laboratory Appointment Lab [place] [facility] [place] [address] [place] [address] 02/16/2024 10:20 AM EDT Hospital [place] [address] Mitali Griffiths APRN [facility] DR HEMATOLOGY [place] [address] 02/16/2024 1:30 PM EDT Office Visit Hematology [place] [address] Albino Bartholomew MD [facility] DR HEMATOLOGY [place] [address] 04/17/2024 10:00 AM EST Office Visit Dermatology at [facility] [address] [place] [address] Oli Winter MD [address] [facility] [place] [address] documented as of this encounter Procedures Procedure Name Priority Date/Time Associated Diagnosis Comments MRI ABDOMEN WWO CONTRAST Routine 08/12/2022 8:10 AM EDT Right kidney mass Renal cell carcinoma of left kidney documented in this encounter Results * MRI Abdomen wwo [...] who have questions please contact the health janitor caretaker that requested your imaging first. ? Electronically signed by: Jd Muller DO [facility] ([phone]), at 08/12/2022 9:58 AM Narrative 08/12/2022 9:58 AM EDT EXAMINATION: MRI ABDOMEN WWO CONTRAST (GENERIC) CLINICAL HISTORY: Kidney cancer suspected, suspicious mass; Kidney cancer, follow up Exophytic mass arising from right kidney, please evaluate, patient with metastatic renal cell carcinoma. TECHNIQUE: MRI of the abdomen prior to and following the intravenous administration of 19ml Dotarem. COMPARISON: MR abdomen 02/06/2022, CT chest abdomen pelvis 06/26/2022 FINDINGS: Stitch Welder Images: Noncontributory. Right Kidney: Lesion of concern [...] 02/06/2022, CT chest abdomen pelvis 06/26/2022 FINDINGS: Stitch Welder Images: Noncontributory. Right Kidney: Lesion of concern [...] patients who have questions please contactthe health janitor caretaker that requested your imaging first. Electronically signed by: Jd Muller DO, [facility]([phone]), at 08/12/2022 9:58 AM Albino Bartholomew MD [facility] MRI ORDERABLES documented in this encounter Visit Diagnoses Diagnosis Right kidney mass Unspecified disorder of kidney and ureter Renal cell carcinoma of left kidney documented in this encounter Administered Medications Inactive Administered Medications - up to 3 most recent administrations Medication Order MAR Action Action Date Dose Rate Site gadoterate meglumine (Dotarem) (0.5 mMol/mL) injection solution 0-100 mL 0-100 mL, Intravenous, ONCE PRN, 1 dose, Starting on Wed08/12/22 at 0732, Until Wed08/12/22 at 0737, Per Protocol, Radiology Contrast, Routine Given 08/12/2022 7:37 AM EDT 19 mLs documented in this encounter Care Teams Salon Professional Relationship Specialty Start Date End Date Juan Dempsey MD [address] [place] [address] PCP - General Emergency Medicine 08/20/21 documented as of this encounter
--- OUTSIDE RECORDS SUMMARY | 2024-02-03 16:54 | XMS_ITS | Encounter Summary ---
Author Organization [facility] Address [facility] [place] [address] Care Team Providers Care Car Shifter Name Role Phone Juan Dempsey MD Primary Care Provider [phone] Encounter Details Date Type Department Care Team (Latest Contact Info) Description 06/19/2022 Travel Social History Tobacco Use Types Packs/Day [...] 9:15 AM EDT Laboratory Appointment Lab at [facility] Hematology Oncology [address] [place] [address] 02/16/2024 10:20 AM EDT Hospital Encounter [place] [phone] Mitali Griffiths APRN [facility] H[place]ATOLOGY [place] [address] 02/16/2024 1:30 PM EDT Office Visit Hematology [place] [address] Albino Bartholomew MD [facility] [address] HEMATOLOGY [place] [address] 04/17/2024 10:00 AM EST Office Visit Dermatology at [facility] [address] [place] [address] Oli Winter MD [address] [facility] [place] [address] documented as of this encounter Visit Diagnoses Not on filedocumented in this encounter Care Teams Car Shifter Relationship Specialty Start Date End Date Juan Dempsey MD [address] [place] [address] PCP - General Emergency Medicine 08/20/21 documented as of this encounter
--- OUTSIDE RECORDS SUMMARY | 2024-02-03 16:54 | XMS_ITS | Encounter Summary ---
Author Organization [facility] Address [facility] [place] [address] Care Team Providers Care Green Inspector Name Role Phone Juan Dempsey MD Primary Care Provider [phone] Reason for Visit * Reason Comments Follow-up Encounter Details Date Type Department Care Team (Late st Contact Info) Description 09/16/2022 2:00 PM EDT Office Visit Hematology [place] [address] Albino Bartholomew MD [facility] DR [place] [address] Kyle Donohue PA [facility] DR [place] [address] Metastatic 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, unspecified laterality; High risk medication use; Abnormal thyroid function test; Elevated LFTs; Autoimmune hepatitis; Drug-induced liver injury Social History Tobacco Use [...] Sign Reading Time Taken Comments Blood Pressure 137/75 09/16/2022 1:57 PM EDT Pulse 65 09/16/2022 1:57 PM EDT Temperature 36.5 ??C (97.7 ??F) 09/16/2022 1:57 PM ED T Respiratory Rate 18 09/16/2022 1:57 PM EDT Oxygen Saturation 97% 09/16/2022 1:57 PM EDT Inhaled Oxygen Concentration - - Weight 93.5 kg (206 lb 2.1 oz) 09/16/2022 1:57 P M EDT Height 182.1 cm (5' 11.69) 09/16/2022 1:57 PM E DT Body Mass Index 28.2 09/16/2022 1:57 PM EDT documented in this encounter Progress Notes * Albino Bartholomew MD - 09/16/2022 2:00 PM EDT Images from the original [...] cell carcinoma and cabozantinib toxicity check. He developed new pain and tingling in bilateral heels and under 5th toe. Began 08/22 inleft foot first then 2 days later in right foot. Constant sharp pain, 6/10, denies radiating. Tingling is intermittent. Dragging his feet when he walks because pressure increases the pain. His cabozan tinib was held on September 01 with resolution of symptoms. He restarted bosutinib 40 mg on September 07 but symptoms returned in several days. He held medication last 2 days. Patient Active Problem List Diagnosis Code ??? [...] 5 mg, Oral, 2 TIMES DAILY ??? levothyroxine (SYNTHROID) 50 mcg, Oral, DAILY ??? 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 Wt Readings from Last 3 Encounters: 09/16/22 93.5 kg (206 lb 2.1 oz) 08/12/22 93 kg (205 lb 0.4 oz) 06/26/22 95 kg (209 lb 7 oz) ECOG PS: 0 General: NAD, pleasant, [...] Conversant, normal mood and affect. Vitals: BP 137/75 (Patient Position: Sitting) Pulse 65 Temp 36.5 ??C (97.7 ??F) (Temporal) Resp 18 Ht 182.1 cm (5' 11.69) Wt 93.5 kg (206 lb 2.1 oz) SpO2 97% BMI 28.20 kg/m?? Lab results: Recent Results (from the past 24 hour(s)) T4, free Result Value Ref Range Free T4 1.30 0.93 - 1.70 ng/dL TSH Result Value Ref Range TSH 7.43 (H) 0.27 - 4.20 mcIU/mL Comprehensive metabolic panel (non-fasting) Result Value Ref Range Glucose Lvl 100 65 - 199 mg/dL BUN 19 10 - 20 mg/dL Creatinine 1.14 0.80 - 1.50 mg/dL Sodium 143 135 - 145 mmol/L Potassium 3.7 3.5 - 5.0 mmol/L Chloride 106 98 - 107 mmol/L CO2 30 22 - 31 mmol/L Anion Gap 7 5 - 15 mmol/L Calcium 9.0 8.5 - 10.5 mg/dL Total Protein 6.3 6.1 - 8.0 g/dL Albumin 3.9 3.2 - 5.2 g/dL AST 79 (H) 0 - 39 unit/L ALT 154 (H) 0 - 55 unit/L Alk Phos 99 40 - 130 unit/L Total Bilirubin 0.3 0.2 - 1.3 mg/dL Estimated GFR 70 >=60 mL/min/1.73 m?? Hemogram Result Value Ref Range WBC 6.2 4.0 - 9.5 x10(3)/mcL RBC 3.87 (L) 4.58 - 5.54 x10(6)/mcL Hemoglobin 13.0 (L) 13.7 - 16.5 g/dL Hematocrit 38.8 (L) 40.5 - 48.5 % MCV 100.3 (H) 82.9 - 93.1 fL MCH 33.6 (H) 27.5 - 32.1 pg MCHC 33.5 32.0 - 35.7 g/dL Platelets 157 145 - 357 x10(3)/mcL RDWSD 51.8 (H) 36.0 - 45.0 fL RDWCV 14.0 (H) 11.4 - 13.8 % MPV 10.0 7.6 - 12.9 fL nRBC % Auto 0.0 % nRBC Abs Auto 0.000 0.000 - 0.000 x10(3)/mcL Differential, Automated Result Value Ref Range Neutrophils % 66.6 % Neutr Abs (ANC) 4.16 1.70 - 6.10 x10(3)/mcL Lymphocytes % 24.6 % Lymphocytes Abs 1.5 0.9 - 3.2 x10(3)/mcL Monocytes % 4.5 % Monocyte Abs 0.3 0.3 - 0.9 x10(3)/mcL Eosinophils % 2.9 % Eosinophils Abs 0.2 0.0 - 0.4 [...] in the abdomen and pelvis. 10/20/21 CXR ([facility]): 10/16/21: IMPRESSION 1. Unexpected finding: New 6 [...] cabozantinib was held due to hand-foot syndrome -09/16/22 cabozantinib dose reduced to 20 mg a [...] taper. Pt prefers to get labs at [facility]. We'll send orders and I'll ask our tile installer to f/u on results. Advised pt to [...] back in 4 weeks with blood work. #Elevated TSH: Continue levothyroxine 50 mcg a day. Free [...] follows with GI Dr. Pringle, AST ALT ALT are up elevated, he is currently on 6 mg [...] - Continue Levothyroxine 50 mcg a day - Reduced Cabometyx to 20 mg a day -Next visit in 4 weeks with CBC, CMP, TSH, free T4 The plan was discussed with patient in details. All questions were answered to patient's satisfaction. documented in this encounter Plan of Treatment Upcoming Encounters Date Type Department Care Team (Late st Contact Info) Description 02/16/2024 9:15 AM EDT Laboratory Appointment Lab at [facility] Hematology Oncology [address] [place] [address] 02/16/2024 10:20 AM EDT Hospital [place] [phone] Mitali Griffiths APRN [facility] DR [place] [address] 02/16/2024 1:30 PM EDT Office Visit Hematology [place] [address] Albino Bartholomew MD [facility] DR [place] [address] 04/17/2024 10:00 AM EST Office Visit Dermatology at [facility] [address] [place] [address] Oli Winter MD [address] [place] [address] documented as of this encounter Visit Diagnoses Diagnosis Metastatic 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, unspecified laterality High risk medication use Encounter for long-term (current) use of other medications Abnormal thyroid function test Nonspecific abnormal results of thyroid function study Elevated LFTs Other abnormal blood chemistry Autoimmune hepatitis Drug-induced liver injury documented in this encounter Care Teams Green Inspector Relationship Specialty Start Date End Date Juan Dempsey MD [address] [place] [address] PCP - General Emergency Medicine 08/20/21 documented as of this encounter
--- OUTSIDE RECORDS SUMMARY | 2024-02-03 16:54 | XMS_ITS | Encounter Summary ---
Author Organization [place] [address] Care Team Providers Care Vamp Throater Name Role Phone Juan Dempsey MD Primary Care Provider [phone] Reason for Referral * Diagnostic Test (Routine) - Closed Specialty Diagnoses / Procedures Referred By Contac t Referred To Contact Radiology Diagnoses Metastatic 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, unspecified laterality Procedures CT Chest Abdomen Pelvis w Contrast (Generic) Albino Bartholomew MD [facility] [address] [place] [address] [facility] [place] [address] Referral ID Status Reason Start Date Expiration Date V isits Requested Visits Authorized [id number] Closed Specialty Service Requested 05/20/2022 11/18/2023 1 1 Reason for Visit * Diagnostic Test (Routine) - Closed Specialty Diagnoses / Procedures Referred By Contac t Referred To Contact Radiology Diagnoses Metastatic 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, unspecified laterality Procedures CT Chest Abdomen Pelvis w Contrast (Generic) Albino Bartholomew MD [facility] [place] [address] [facility] [place] [address] Referral ID Status Reason Start Date Expiration Date V isits Requested Visits Authorized [id number] Closed Specialty Service Requested 05/20/2022 11/18/2023 1 1 Encounter Details Date Type Department Care Team (Latest Contact Info) Description 06/26/2022 10:53 AM EST - 06/26/2022 11:02 AM EST Hospital [place] [address] Albino Bartholomew MD [facility] DR [place] [address] Metastatic renal cell carcinoma to [...] mg by mouth daily. 04/11/2019 cabozantinib (Cabometyx) 40 mg tabletIndications:fatmata l cell carcinoma Take 1 tablet (40 mg) by mouth daily. Take on an empty stomach. Call clinic before starting medication. Indications: renal cell carcinoma 30 tablet 11 04/29/2022 09/16/2022 potassium chloride SA (Klor-con) 10 mEq Tab Sust.Rel. Particle/Crystal Take 1 tablet by mouth 2 times daily. 60 tablet 1 04/04/2022 08/24/2023 budesonide EC (Entocort EC) 3 mg Capsule, Delayed & Ext.Release Take 3 capsules by mouth every morning. 90 capsule 3 11/26/2021 07/26/2022 documented as of this encounter Plan of Treatment Upcoming Encounters Date Type Department Care Team (Late st Contact Info) Description 02/16/2024 9:15 AM EDT Laboratory Appointment Lab at [facility] Hematology Oncology [address] [place] [address] 02/16/2024 10:20 AM EDT Hospital [place] [address] Mitali Griffiths APRN [facility] DR [place] [address] 02/16/2024 1:30 PM EDT Office Visit Hematology [place] [address] Albino Bartholomew MD [facility] DR [place] [address] 04/17/2024 10:00 AM EST Office Visit Dermatology at [facility] [address] [place] [address] Oli Winter MD [address] [facility] [place] [address] documented as of this encounter Procedures Procedure Name Priority Date/Time Associated Diagnosis Comments CT CHEST ABDOMEN PELVIS W CONTRAST (GENERIC) Routine 06/26/2022 1:25 PM EST Metastatic 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, unspecified laterality documented in this encounter Results * (ABNORMAL) CT Chest Abdomen Pelvis w Contrast (Generic) (06/26/2022 1:25 PM EST) Anatomical Region Laterality Modality Abdomen, Pelvis Computed Tomogra phy Impressions 06/26/2022 3:18 PM EST 1. ??Slight interval increase in size of pleural-based right pulmonary nodule, as above. Unchanged appearance of the right upper and left lower lobe pulmonary nodules. 2. ??Interval decrease in size, and increase in density of a partially exophytic focus in the right kidney. Concern for possible solid mass arising at the site of prior cyst, versus blood products. Consider supplementary ultrasound for further characterization. UNEXPECTED FINDING. Thank you for letting us participate in the care of this patient. ??If you are a health care provider and have any questions regarding this report, please contact the number below. ??For patients who have questions please contact the health certified social workers in health care that requested your imaging first. ? Narrative 06/26/2022 3:18 PM EST EXAMINATION: CT CHEST ABDOMEN PELVIS W CONTRAST (GENERIC) CLINICAL HISTORY: Metastatic disease evaluation; Kidney cancer, recurrence, follow up Restaging of metastatic renal cell carcinoma TECHNIQUE: Helical CT of the chest, abdomen, and pelvis was performed following the intravenous administration of contrast. Administered 100.0 ml of VISIPAQUE 320.00 mg/ml. Oral contrast was administered. COMPARISON: CT chest January 15, 2022, MR abdomen November 07, 2021, chest abdomen and pelvis July 20, 2021 FINDINGS: Chest: Lungs and large airways: 12 mm right upper pole nodule, not appreciably changed. 5 mm pleural-based nodule in the anterior right chest, slightly increased in size compared to 3mm previously (series 301 image 30) grossly unchanged 10-11 mm nodule in the left pulmonary base. No new nodules. Pleura: No effusion. Heart/vasculature: Normal. Lymph nodes: No enlarged lymph nodes. Mediastinum and christine: Normal. Abdomen/pelvis: Liver: Normal size and attenuation without lesions. Bile ducts: Nondilated. Gallbladder: No calcified gallstones. Normal caliber wall. Pancreas: Normal attenuation without ductal dilatation. Spleen: Normal. Adrenals: Normal. Kidneys: Absent left kidney. A partially exophytic hyperdense upper pole lesion on the right, 11 mm in short axis (series 201 image 86) site of a previously identified partially exophytic cyst. A number of small parenchymal cysts. Urinary Bladder: Normal. Vasculature: Mural calcifications in the abdominal aorta and its branches. No aneurysm. Lymph Nodes: ??No enlarged lymph nodes. Bowel: Nondilated, no wall thickening. ??Scattered sigmoid diverticula. Peritoneum and mesentery: No ascites, free air, or loculated fluid collection. No mesenteric inflammation. Abdominal wall: Fat-containing umbilical hernia without evidence of strangulation. Reproductive organs: Normal. Osseous structures: No suspicious lesions. Resulting Agency Comment Unexpected Finding Albino Bartholomew MD IMG CT ORDERABLES documented in this encounter Visit Diagnoses Diagnosis Metastatic 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, unspecified laterality documented in this encounter Administered Medications Inactive Administered Medications - up to 3 most recent administrations Medication Order MAR Action Action Date Dose Rate Site barium sulfate (Readi-Cat) 2.0 % (w/v) oral liquid 450-900 mL 450-900 mL, Oral, ONCE PRN, 1 dose, Starting on Wed06/26/22 at 1325, Until Wed06/26/22 at 1120, Per Protocol, Radiology Contrast, Routine Given 06/26/2022 11:20 AM EST 900 mLs iodixanoL (Visipaque) (320 mg/mL) injection solution 0-200 mL 0-200 mL, Intravenous, ONCE PRN, 1 dose, Starting on Wed06/26/22 at 1325, Until Wed06/26/22 at 1326, Per Protocol, Radiology Contrast, Routine Given 06/26/2022 1:26 PM EST 100 mLs documented in this encounter Care Teams Vamp Throater Relationship Specialty Start Date End Date Juan Dempsey MD [address] [place] [address] PCP - General Emergency Medicine 08/20/21 documented as of this encounter
--- OUTSIDE RECORDS SUMMARY | 2024-02-03 16:54 | XMS_ITS | Encounter Summary ---
Author Organization [facility] [place] [address] Care Team Providers Care Shuttle Fixer Name Role Phone Juan Dempsey MD Primary Care Provider [phone] Reason for Visit * Reason Comments Specialty Pharmacy Review Cabometyx 40mg tablet Encounter Details Date Type Department Care Team (Late st Contact Info) Description 08/12/2022 Specialty [place] [phone] Kelin Chong, [facility] Social History Tobacco Use Types Packs/Day [...] encounter Progress Notes * Kelin Chong - 08/12/2022 11:59 PM EDT The [facility] has completed a benefits investigation for Cristofer Tenorio to review their eligibility to fill at [facility]. Per patient's medication list they are prescribedCabometyx 40mg tablet and the medication is able to be filled at the [facility]. The patient is currently filling the medication through Specialty Pharmacy with a $0 copay. PA approved until 2025 documented in this encounter Plan of Treatment Upcoming Encounters Date Type Department Care Team (Late st Contact Info) Description 02/16/2024 9:15 AM EDT Laboratory Appointment Lab at [facility] Hematology Oncology [address] [place] [address] 02/16/2024 10:20 AM EDT Hospital [place] [phone] Mitali Griffiths APRN [facility] [place] [address] 02/16/2024 1:30 PM EDT Office Visit Hematology [place] [address] Albino Bartholomew MD [facility] DR [place] [address] 04/17/2024 10:00 AM EST Office Visit Dermatology at [facility] [address] [place] [address] Oli Winter MD [address] [facility] [place] [address] documented as of this encounter Visit Diagnoses Not on filedocumented in this encounter Care Teams Shuttle Fixer Relationship Specialty Start Date End Date Juan Dempsey MD [address] [place] [address] PCP - General Emergency Medicine 08/20/21 documented as of this encounter
--- OUTSIDE RECORDS SUMMARY | 2024-02-03 16:54 | XMS_ITS | Encounter Summary ---
Author Organization [facility] Address [facility] [place] [address] Care Team Providers Care Wood Molder Name Role Phone Juan Dempsey MD Primary Care Provider [phone] Encounter Details Date Type Department Care Team (Late st Contact Info) Description 08/31/2022 Telephone [place]ematology [place] [address] Daxa Arriola RN Social History [...] Telephone Encounter - Daxa Arriola RN - 08/31/2022 9:31 AM EDT Message received from clinical area secretary: [phone] Reports that he is having pain in the heel of both feet. Thinks it is from his new thyroid meds. S/O: Call placed to pt to discuss above. Pt reports new pain and tingling in bilateral heels and under 5th toe. Began 08/22 in left foot first then 2 days later in right foot. Constant sharp pain, 6/10, denies radiating. Tingling is intermittent. Dragging his feet when he walks because pressure increases the pain. Using Icy Hot on the area, provides a little bit of relief. Denies pain/numbness/tingling in hands and fingertips. A: Dr. Bartholomew patient with clear cell renal cancer s/p nephrectomy. D1C1 of pembrolizumab on 08/07/22. P: Message forwarded to Dr. Bartholomew. Triage to follow-up with plan on 09/01/22. documented in this encounter Plan of Treatment Upcoming Encounters Date Type Department Care Team (Late st Contact Info) Description 02/16/2024 9:15 AM EDT Laboratory Appointment Lab at [facility] Hematology Oncology [address] [place] [address] 02/16/2024 10:20 AM EDT [place] [address] Mitali Griffiths APRN [facility] DR HEMATOLOGY [place] [address] 02/16/2024 1:30 PM EDT Office Visit Hematology [place] [address] Albino Bartholomew MD [facility] DR HEMATOLOGY [place] [address] 04/17/2024 10:00 AM EST Office Visit Dermatology at [facility] [address] [place] [address] Oli Winter MD [address] [facility] [place] [address] documented as of this encounter Visit Diagnoses Not on filedocumented in this encounter Care Teams Wood Molder Relationship Specialty Start Date End Date Juan Dempsey MD [address] [place] [address] PCP - General Emergency Medicine 08/20/21 documented as of this encounter
--- OUTSIDE RECORDS SUMMARY | 2024-02-03 16:54 | XMS_ITS | Encounter Summary ---
Author Organization [facility] Address [facility] [place] [address] Care Team Providers Care Fine Craft Artist Name Role Phone Juan Dempsey MD Primary Care Provider [phone] Encounter Details Date Type Department Care Team (Latest Contact Info) Description 07/22/2022 Travel Social History Tobacco Use Types Packs/Day [...] Laboratory Appointment Lab [place] [facility] [place] [address] [place] [address] 02/16/2024 10:20 AM EDT Hospital [place]counter [place] [address] Mitali Griffiths APRN [facility] DR [place] [address] 02/16/2024 1:30 PM EDT Office Visit Hematology [place] [address] Albino Bartholomew MD [facility] DR [place] [address] 04/17/2024 10:00 AM EST Office Visit Dermatology at [facility] [address] [place] [address] Oli Winter MD [address] [facility] [place] [address] documented as of this encounter Visit Diagnoses Not on filedocumented in this encounter Care Teams Fine Craft Artist Relationship Specialty Start Date End Date Juan Dempsey MD [address] [place] [address] PCP - General Emergency Medicine 08/20/21 documented as of this encounter
--- OUTSIDE RECORDS SUMMARY | 2024-02-03 16:54 | XMS_ITS | Encounter Summary ---
Author Organization [facility] Address [facility] [place] [address] Care Team Providers Care Rib Puller Name Role Phone Juan Dempsey MD Primary Care Provider [phone] Encounter Details Date Type Department Care Team (Late st Contact Info) Description 06/18/2022 Abstract [place] [address] Ana Pringle MD [facility] [place] [address] Social History Tobacco Use Types Packs/Day Years [...] AM EDT Laboratory Appointment Lab at [facility] [place] [address] [place] [address] 02/16/2024 10:20 AM EDT Hospital [place] [address] Mitali Griffiths APRN [facility] [address] [place] [address] 02/16/2024 1:30 PM EDT Office Visit Hematology [place] [address] Albino Bartholomew MD [facility] [address] [place] [address] 04/17/2024 10:00 AM EST Office Visit Dermatology at [facility] [address] [place] [address] Oli Winter MD [address] [facility] [place] [address] documented as of this encounter Visit Diagnoses Not on filedocumented in this encounter Care Teams Rib Puller Relationship Specialty Start Date End Date Juan Dempsey MD [address] [place] [address] PCP - General Emergency Medicine 08/20/21 documented as of this encounter
--- OUTSIDE RECORDS SUMMARY | 2024-02-03 16:54 | XMS_ITS | Encounter Summary ---
Author Organization [facility] Address [facility] [place] [address] Care Team Providers Care Security Supervisor Name Role Phone Juan Dempsey MD Primary Care Provider [phone] Encounter Details Date Type Department Care Team (Latest Contact Info) Description 06/26/2022 11:03 AM EST - 06/26/2022 11:59 PM EST Hospital Encounter Hematology [place] [phone] Metastatic 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, unspecified laterality; Abnormal thyroid function test; High risk medication use Discharge Disposition: Home [...] [facility] Hematology Oncology [address] [place] [address] 02/16/2024 10:20 AM EDT Hospital [place] [phone] Mitali Griffiths APRN [facility] [address] [place] [address] 02/16/2024 1:30 PM EDT Office Visit Hematology [place] [phone] Albino Bartholomew MD [facility] DR HEMATOLOGY [place] [address] 04/17/2024 10:00 AM EST Office Visit Dermatology at [facility] [address] [place] [phone] Oli Winter MD [address] [facility] [address] Scheduled Orders Name Type Priority Associated Diagnoses Orde r Schedule CBC (with Diff) Lab Routine Metastatic 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, unspecified laterality 1 Occurrences starting 06/26/2022 until 06/26/2022 Comprehensive metabolic panel (non-fasting) Lab Routine Metastatic 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, unspecified laterality 1 Occurrences starting 06/26/2022 until 06/26/2022 TSH Lab Routine Metastatic 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, unspecified laterality High risk medication use Abnormal thyroid function test 1 Occurrences starting 06/26/2022 until 06/26/2022 T4, free Lab Routine Metastatic 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, unspecified laterality High risk medication use Abnormal thyroid function test 1 Occurrences starting 06/26/2022 until 06/26/2022 documented as of this encounter Procedures Procedure Name Priority Date/Time Associated Diagnosis Comments HEMOGRAM Routine 06/26/2022 11:12 AM EST Metastatic 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, unspecified laterality DIFFERENTIAL, AUTOMATED Routine 06/26/2022 11:12 AM EST Metastatic 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, unspecified laterality HC VENIPUNCTURE Routine 06/26/2022 11:12 AM EST Metastatic 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, unspecified laterality HC THYROID STIMULATING HORMONE, SERUM Routine 06/26/2022 11:12 AM EST Metastatic 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, unspecified laterality Abnormal thyroid function test HC FREE THYROXINE (T4) Routine 11:12 AM EST Metastatic 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, unspecified laterality Abnormal thyroid function test COMPREHENSIVE METABOLIC PANEL Routine 06/26/2022 11:12 AM EST Metastatic 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, unspecified laterality documented in this encounter Results * Differential, Automated (06/26/2022 11:12 AM EST) Neutrophil % 63.7 % [facility] Neutrophil Absolute 4.50 1.70 - 6.10 x10(3)/[facility] Lymph % 28.5 % [facility] Lymphocytes Abs 2.0 0.9 - 3.2 x10(3)/[facility] Monocyte % 4.7 % [facility] Monocyte Abs 0.3 0.3 - 0.9 x10(3)/[facility] Eos % 1.8 % [facility] Eosinophils Abs 0.1 0.0 - 0.4 x10(3)/[facility] Basophil % 1.0 % [facility] Baso Absolute 0.1 0.0 - 0.1 x10(3)/[facility] Immature Gran % 0.30 % [facility] Comment: Immature granulocytes(IG's)percentage and absolute count will include metamyelocytes, myelocytes, and promyelocytes. Blood smears from CBCs yielding IG's will be scanned manually for concordance. If this scan disagrees with the automated IG or if promyelocytes are noted, a manual differential will be performed. Immature Gran Absolute 0.02 0.00 - 0.04 x10(3)/mcL [facility] Blood 06/26/2022 11:1 2 AM EST 06/26/2022 11:19 AM EST Narrative Resulting Agency Comment Spec In Lab Albino Bartholomew MD HEMATOLOGY ORDERABLE S [facility] [place] [address] * (ABNORMAL) Hemogram (06/26/2022 11:12 AM EST) White Blood Cell 7.1 4.0 - 9.5 x10(3)/mc L [facility] Red Blood Cell 4.12(L) 4.58 - 5.54 x10(6)/mc L [facility] Hemoglobin 13.2(L) 13.7 - 16.5 g/dL [facility] Hematocrit 38.2(L) 40.5 - 48.5 % [facility] Mean Cell Volume 92.7 82.9 - 93.1 fL [facility] Mean Cell Hemoglobin 32.0 27.5 - 32.1 pg [facility] Mean Cell Hemoglobin Concentration 34.6 32.0 - 35.7 g/dL [facility] Platelet 176 145 - 357 x10(3)/mc L [facility] RDW Standard Deviation 60.3(H) 36.0 - 45.0 fL [facility] RDW coefficient of variation 17.5(H) 11.4 - 13.8 % [facility] Mean Platelet Volume 9.7 7.6 - 12.9 fL [facility] NRBC% auto 0.0 % [facility] NRBC Absolute 0.000 0.000 - 0.000 x10(3)/mc L [facility] Blood 06/26/2022 11:1 2 AM EST 06/26/2022 11:19 AM EST Narrative Resulting Agency Comment Spec In Lab Albino Bartholomew MD HEMATOLOGY ORDERABLE S Performing Organization Address City/[facility]/ZIP Co de Phone Number [facility] [place] [address] * T4, free (06/26/2022 11:12 AM EST) Free T4 1.34 0.93 - 1.70 ng/dL [facility] Comment: Reference Interval (ng/dL): Females: ??First Trimester: 0.97-1.68 ??Second Trimester: 0.77-1.51 ??Third Trimester: 0.77-1.49 Blood 06/26/2022 11:1 2 AM EST 06/26/2022 11:19 AM EST Narrative Resulting Agency Comment Spec In Lab Albino Bartholomew MD CHEMISTRY ORDERABLES Performing Organization Address [facility] Co de Phone Number [facility] [place] [address] * (ABNORMAL) TSH (06/26/2022 11:12 AM EST) Thyroid Stimulating Hormone 10.60(H) 0.27 - 4.20 mcIU/mL [facility] Comment: Reference Interval (mcIU/mL): Females: ??First Trimester: 0.23-3.88 ??Second Trimester: 0.22-3.90 ??Third Trimester: 0.44-4.66 Blood 06/26/2022 11:1 2 AM EST 06/26/2022 11:19 AM EST Narrative Resulting Agency Comment Spec In Lab Albino Bartholomew MD CHEMISTRY ORDERABLES Performing Organization Address City/[facility]/ZIP Co de Phone Number [facility] [place] [address] * (ABNORMAL) Comprehensive metabolic panel (non-fasting) (06/26/2022 11:12 AM EST) Glucose 117 65 - 199 mg/dL [facility] Comment:Diabetes: >=200 mg/d L plus symptoms Blood Urea Nitrogen 28(H) 10 - 20 mg/dL [facility] Creatinine 1.80(H) 0.80 - 1.50 mg/dL [facility] Sodium 138 135 - 145 mmol/L [facility] Potassium 3.9 3.5 - 5.0 mmol/L [facility] Comment: Please note: ??Patients with WBC >100,000 may have falsely elevated Potassium levels. ??For accurate Potassium quantification in these patients send serum separator tube (gold top) for subsequent determinations. ??Contact the Clinical Chemistry Laboratory if there are any questions. Chloride 102 98 - 107 mmol/L [facility] Carbon Dioxide 27 22 - 31 mmol/L [facility] Anion Gap 9 5 - 15 mmol/L [facility] Calcium 9.1 8.5 - 10.5 mg/dL [facility] Protein, Total 6.6 6.1 - 8.0 g/dL [facility] Albumin 4.2 3.2 - 5.2 g/dL [facility] Aspartate Aminotransferase 42(H) 0 - 39 unit/L [facility] Alanine Aminotransferase 86(H) 0 - 55 unit/L [facility] Alkaline Phosphatase 121 40 - 130 unit/L [facility] Bilirubin, Total 0.6 0.2 - 1.3 mg/dL [facility] Est Glomerular Filtration Rate 41(L) >=60 mL/min/1. 73 m?? [facility] Comment: This patient's estimated GFR was [...] and symptoms in addition to eGFR. Blood 06/26/2022 11:1 2 AM EST 06/26/2022 11:19 AM EST Narrative Resulting Agency Comment Spec In Lab Albino Bartholomew MD CHEMISTRY ORDERABLES [facility] [place] [address] documented in this encounter Visit Diagnoses Diagnosis Metastatic 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, unspecified laterality Abnormal thyroid function test Nonspecific abnormal results of thyroid function study High risk medication use Encounter for long-term (current) use of other medications documented in this encounter Care Teams Security Supervisor Relationship Specialty Start Date End Date Juan Dempsey MD [address] [place] [address] PCP - General Emergency Medicine 08/20/21 documented as of this encounter
--- OUTSIDE RECORDS SUMMARY | 2024-02-03 16:54 | XMS_ITS | Encounter Summary ---
Author Organization [facility] Address [facility] [place] [address] Care Team Providers Care Family Independence Case Manager Name Role Phone Juan Dempsey MD Primary Care Provider Encounter Details Date Type Department Care Team (Latest Contact Info) Description 07/13/2022 10:54 AM EDT - 07/13/2022 11:59 PM EDT Hospital [place] [phone] Albino Costello MD [facility] DR HEMATOLOGY [place] [address] Metastatic 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, unspecified laterality Discharge Disposition: Home Social History Tobacco Use Types Packs/Day Years Used Date Smoking Tobacco: Never Smokeless Tobacco: Never Alcohol Use Standard Drinks/Week Comments Never 0 (1 standard drink = 0.6 oz pur e alcohol) Overall Financial Resource Strain (CARDIA) Sergio oh Date Recorded How hard is it for [...] [facility] Hematology Oncology [address] [place] [address] 02/16/2024 10:20 AM EDT Hospital [place] [address] Mitali Griffiths APRN [facility] DR HEMATOLOGY [place] [address] 02/16/2024 1:30 PM EDT Office Visit [place]ematology [place] [address] Albino Costello MD [facility] DR HEMATOLOGY [place] [address] 04/17/2024 10:00 AM EST Office Visit Dermatology at [facility] [address] [place] [address] Oli Winter MD [address] [facility] [place] [address] documented as of this encounter Procedures Procedure Name Priority Date/Time Associated Diagnosis Comments US RETROPERITONEAL COMPLETE Routine 07/13/2022 11:15 AM EDT Metastatic 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, unspecified laterality documented in this encounter Results * US Retroperitoneal Complete (07/13/2022 11:15 AM EDT) Anatomical Region Laterality Modality Abdomen Ultrasound 07/13/2022 10:5 6 AM EDT Impressions 07/13/2022 12:58 PM EDT 1. ??The CT demonstrated 11 mm exophytic lesion arising from the superior pole of the right kidney is not visualized sonographically and therefore remains indeterminate. Further evaluation by MRI is recommended. 2. ??Stable 1 cm ??mid to superior pole right renal cortical simple cyst. 3. ??No right-sided collecting system dilatation. 4. ??Status post left nephrectomy without sonographic evidence of local recurrence. 5. ??Bladder not distended for evaluation. Electronically signed by: Josselyn Gaona MD, [facility] ([phone]), at 07/13/2022 12:50 PM Thank you for letting us participate in the care of this patient. If you are a health care provider and have any questions regarding this report, please contact the number above. For patients who have questions, please contact the health emergency care tech that requested your imaging first. ?Josselyn Gaona, [facility] [employer] Electronically Signed Final Report ?? 07/13/2022 12:57 pm Narrative 07/13/2022 12:58 PM EDT Renal ? (Signed Final 07/13/2022 12:57 pm) PATIENT INFO: ID #: ? [id number] ?: ??[birth year] (67 yrs)(M) Name: ? RAYMUNDO TENORIO ? Visit Date: 07/13/2022 10:56 am PERFORMED BY: Attending: ?Candelaria CRAVEN, Josselyn Hudson Performed By: ? Purvi Miles RDMS Referred By: ?ALBINO COSTELLO Location: ? [place] SERVICE(S) PROVIDED: URETRO - Retroperitoneal Complete - [id number] ? [id number] INDICATIONS: Change in appearance of exophytic focus of right kidney, patient with metastatic renal cell carcinoma COMPARISON: CT chest, abdomen, and pelvis 06/26/22 RIGHT KIDNEY: Size (cm) ?L: ??11.1 Cortical Thickness: ?Normal Cortical Echogenicity: ?? Normal Hydronephrosis: ?No sonographic evidence Comment: ?Simple mid-upper pole cortical cyst 1 x 1 x 1.1 cm. LEFT KIDNEY: Comment: ?Surgically absent. Post operative bed is ? unremarkable. URINARY BLADDER: Comment: ?Not distended. Procedure Note Josselyn Gaona MD - 07/13/2022 Renal (Signed Final 07/13/2022 12:57 pm) PATIENT INFO: ID #: [id number] : 55 (67 yrs)(M) Name: RAYMUNDO Oh JOSE Visit Date: 07/13/2022 10:56 am PERFORMED BY: Attending: Josselyn Gaona MD Performed By: Purvi Miles RDMS Referred By: ALBINO COSTELLO Location: [place] SERVICE(S) PROVIDED: URETRO - Retroperitoneal Complete - [id number] INDICATIONS: Change in appearance of exophytic focus of right kidney, patient with metastatic renal cell carcinoma COMPARISON: CT chest, abdomen, and pelvis 06/26/22 RIGHT KIDNEY: Size (cm) L: 11.1 Cortical Thickness: Normal Cortical Echogenicity: Normal Hydronephrosis: No sonographic evidence Comment: Simple mid-upper pole cortical cyst 1 x 1 x 1.1 cm. LEFT KIDNEY: Comment: Surgically absent. Post operative bed is unremarkable. URINARY BLADDER: Comment: Not distended. IMPRESSION 1. The CT demonstrated 11 mm exophytic lesion arising from the superior pole of the right kidney is not visualized sonographically and therefore remains indeterminate. Further evaluation by MRI is recommended. 2. Stable 1 cm mid to superior pole right renal cortical simple cyst. 3. No right-sided collecting system dilatation. 4. Status post left nephrectomy without sonographic evidence of local recurrence. 5. Bladder not distended for evaluation. Thank you for letting us participate in the care of this patient. If you are a health care provider and have any questions regarding this report, please contact the number above. For patients who have questions, please contact the health emergency care tech that requested your imaging first. Josselyn Gaona, [facility] [employer] Electronically Signed Final Report 07/13/2022 12:57 pm Albino Costello MD IMG GEN ORDERABLE S documented in this encounter Visit Diagnoses Diagnosis Metastatic 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, unspecified laterality documented in this encounter Care Teams Family Independence Case Manager Relationship Specialty Start Date End Date Juan Dempsey MD [address] [place] [address] PCP - General Emergency Medicine 08/20/21 documented as of this encounter
--- OUTSIDE RECORDS SUMMARY | 2024-02-03 16:54 | XMS_ITS | Encounter Summary ---
Author Organization [facility] Address [facility] [place] [address] Care Team Providers Care Rn Orthopaedics Name Role Phone Juan Dempsey MD Primary Care Provider [phone] Reason for Visit * Reason Comments Specialty Refill Management Encounter Details Date Type Department Care Team (Late st Contact Info) Description 06/26/2022 Specialty [place] [phone] Reshma Gar, [facility] Social History Tobacco Use Types [...] this encounter Progress Notes * Reshma Gar [facility] - 06/26/2022 3:51 PM EST Clinical Management Plan: Refill Specialty Pharmacy Consultation; Reshma Gar [facility] Comprehensive Medication Management (CMM) Cristofer [...] ??? Peanut Medication Reconciliation Discrepancies (compared to [facility] med list) No Specialty Pharmacy Refill Questionnaire Refill Questionnaire 06/26/2022 What is the name of the specialty medication you are refilling? cabozantinib Are you taking any new medications? No Please explain - Any new medical condition? No Any new allergies? No Any new side effects that are bothersome? No Please explain - What date will you need this fill by? 07/04/2022 Adherence: Any missed doses? No Patient understands no changes to current drug regimen were made. Reshma Gar [facility] 06/26/22 3:53 PM documented in this encounter Plan of Treatment Upcoming Encounters Date Type Department Care Team (Late st Contact Info) Description 02/16/2024 9:15 AM EDT Laboratory Appointment Lab at [facility] Hematology Oncology [address] [place] [address] 02/16/2024 10:20 AM EDT Hospital [place] [phone] Mitali Griffiths APRN [facility] [address] [place] [address] 02/16/2024 1:30 PM EDT Office Visit Hematology [place] [address] Albino Bartholomew MD [facility] [address] [place] [address] 04/17/2024 10:00 AM EST Office Visit Dermatology at [facility] [address] [place] [address] Oli Winter MD [address] [facility] [place] [address] documented as of this encounter Visit Diagnoses Not on filedocumented in this encounter Care Teams Rn Orthopaedics Relationship Specialty Start Date End Date Juan Dempsey MD [address] [place] [address] PCP - General Emergency Medicine 08/20/21 documented as of this encounter
--- OUTSIDE RECORDS SUMMARY | 2024-02-03 16:54 | XMS_ITS | Encounter Summary ---
Author Organization [facility] Address [facility] [place] [address] Care Team Providers Care Sap Senior Developer Name Role Phone Juan Dempsey MD Primary Care Provider [phone] Reason for Visit * Reason Onset Date Comments Medication Refill 07/26/2022 Encounter Details Date Type Department Care Team (Late st Contact Info) Description 07/26/2022 [place]ill [place] [address] Ana Pringle MD [facility] [place] [address] Autoimmune hepatitis Social History Tobacco Use Types [...] Laboratory Appointment Lab at [facility] Hematology Oncology [address] [place] [address] 02/16/2024 10:20 AM EDT Hospital [place] [phone] Mitali Griffiths APRN [facility] DR [place] [address] 02/16/2024 1:30 PM EDT Office Visit Hematology [place] [address] Albino Bartholomew MD [facility] DR [place] [address] 04/17/2024 10:00 AM EST Office Visit Dermatology at [facility] [address] [place] [address] Oli Winter MD [address] [place] [address] documented as of this encounter Visit Diagnoses Diagnosis Autoimmune hepatitis documented in this encounter Care Teams Sap Senior Developer Relationship Specialty Start Date End Date Juan Dempsey MD [address] [place] [address] PCP - General Emergency Medicine 08/20/21 documented as of this encounter
--- OUTSIDE RECORDS SUMMARY | 2024-02-03 16:54 | XMS_ITS | Encounter Summary ---
Author Organization [facility] Address [facility] [place] [address] Care Team Providers Care Location Analyst Name Role Phone Juan Dempsey MD Primary Care Provider [phone] Encounter Details Date Type Department Care Team (Latest Contact Info) Description 07/13/2022 Travel Social History Tobacco Use Types Packs/Day [...] 9:15 AM EDT Laboratory Appointment Lab at [facility] Hematology Oncology [address] [place] [address] 02/16/2024 10:20 AM EDT Hospital [place] [phone] Mitali Griffiths APRN [facility] DR HEMATOLOGY [place] [address] 02/16/2024 1:30 PM EDT Office Visit Hematology [place] [address] Albino Bartholomew MD [facility] DR HEMATOLOGY [place] [address] 04/17/2024 10:00 AM EST Office Visit Dermatology at [facility] [address] [place] [address] Oli Winter MD [address] [facility] [address] documented as of this encounter Visit Diagnoses Not on filedocumented in this encounter Care Teams Location Analyst Relationship Specialty Start Date End Date Juan Dempsey MD [address] [place] [address] PCP - General Emergency Medicine 08/20/21 documented as of this encounter
--- OUTSIDE RECORDS SUMMARY | 2024-02-03 16:54 | XMS_ITS | Encounter Summary ---
Author Organization [facility] Address [facility] [place] [address] Care Team Providers Care Biomedical Field Service Engineer Name Role Phone Juan Dempsey MD Primary Care Provider [phone] Encounter Details Date Type Department Care Team (Late st Contact Info) Description 08/23/2022 Orders [place] [address] Ana Pringle MD [facility] [place] [address] Drug-induced liver injury Social History Tobacco Use [...] Appointment Lab at [facility] Hematology Oncology [address] [place] [address] 02/16/2024 10:20 AM EDT Hospital [place] [address] Mitali Griffiths APRN [facility] DR [place] [address] 02/16/2024 1:30 PM EDT Office Visit Hematology [place] [phone] Albino Bartholomew MD [facility] DR HEMATOLOGY [place] [address] 04/17/2024 10:00 AM EST Office Visit Dermatology at [facility] [address] [place] [address] Oli Winter MD [address] [facility] [place] [address] documented as of this encounter Visit Diagnoses Diagnosis Drug-induced liver injury documented in this encounter Care Teams Biomedical Field Service Engineer Relationship Specialty Start Date End Date Juan Dempsey MD [address] [place] [address] PCP - General Emergency Medicine 08/20/21 documented as of this encounter
--- OUTSIDE RECORDS SUMMARY | 2024-02-03 16:54 | XMS_ITS | Encounter Summary ---
Author Organization [facility] [place] [address] Care Team Providers Care Information Technology Consultant Name Role Phone Juan Dempsey MD Primary Care Provider [phone] Encounter Details Date Type Department Care Team (Latest Contact Info) Description 08/12/2022 8:27 AM EDT - 08/12/2022 11:59 PM EDT Hospital Encounter Hematology [place] [phone] Metastatic 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, unspecified [...] place to sleep or slept in a correction (including now)? No 07/09/2021 Sex and Gender [...] AM EDT Laboratory Appointment Lab at [facility] Hematology Oncology [address] [place] [id number] 02/16/2024 10:20 AM EDT Hospital Encounter [place] [phone] Mitali Griffiths APRN [facility] [place] [address] 02/16/2024 1:30 PM EDT Office Visit Hematology [place] [phone] Albino Bartholomew MD [facility] [address] [place] [address] 04/17/2024 10:00 AM EST Office Visit Dermatology at [facility] [address] [place] [address] Oli Winter MD [address] [facility] [place] [address] Scheduled Orders Name Type Priority Associated Diagnoses Orde r Schedule Comprehensive metabolic panel (non-fasting) Lab Routine Metastatic 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, unspecified laterality 1 Occurrences starting 08/12/2022 until 08/12/2022 documented as of this encounter Procedures Procedure Name Priority Date/Time Associated Diagnosis Comments BILIRUBIN, DIRECT Routine 08/12/2022 8:3 7 AM EDT HEMOGRAM Routine 08/12/2022 8:37 AM EDT Metastatic 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, unspecified laterality DIFFERENTIAL, AUTOMATED Routine 08/12/2022 8:37 AM EDT Metastatic 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, unspecified laterality HC CBC,PLT & AUTO DIFF Routine 8:37 AM EDT Metastatic 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, unspecified laterality HC THYROID STIMULATING HORMONE, SERUM Routine 08/12/2022 8:37 AM EDT Metastatic 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, unspecified laterality High risk medication use Abnormal thyroid function test T4, FREE Routine 08/12/2022 8:37 AM EDT Metastatic 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, unspecified laterality High risk medication use Abnormal thyroid function test COMPREHENSIVE METABOLIC PANEL Routine 08/12/2022 8:37 AM EDT Metastatic 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, unspecified laterality documented in this encounter Results * Bilirubin, Direct (08/12/2022 8:37 AM EDT) Bilirubin, Direct 0.2 0.0 - 0.3 mg/dL [facility] Blood 08/12/2022 8:37 AM EDT 08/12/2022 8:42 AM EDT Narrative Resulting Agency Comment Spec In Lab Ana Pringle MD CHEMISTRY ORDERABLES [place] [address] * Differential, Automated (08/12/2022 8:37 AM EDT) Neutrophil % 68.7 % [facility] Neutrophil Absolute 4.64 1.70 - 6.10 x10(3)/[facility] LAB[facility] Lymph % 22.8 % [facility] [place] [facility] Lymphocytes Abs 1.5 0.9 - 3.2 x10(3)/[facility] Monocyte % 4.4 % [facility] Monocyte Abs 0.3 0.3 - 0.9 x10(3)/[facility] Eos % 2.7 % [facility] Eosinophils Abs 0.2 0.0 - 0.4 x10(3)/[facility] Basophil % 1.0 % [facility] Baso Absolute 0.1 0.0 - 0.1 x10(3)/[facility] LAB[facility]ORY Immature Gran % 0.40 % [facility] Comment: Immature granulocytes(IG's)percentage and absolute count will include metamyelocytes, myelocytes, and promyelocytes. Blood smears from CBCs yielding IG's will be scanned manually for concordance. If this scan disagrees with the automated IG or if promyelocytes are noted, a manual differential will be performed. Immature Gran Absolute 0.03 0.00 - 0.04 x10(3)/[facility] Blood 08/12/2022 8:37 AM EDT 08/12/2022 8:42 AM EDT Narrative Resulting Agency Comment Spec In Lab Albino Bartholomew MD HEMATOLOGY ORDERABLE S Performing Organization Address City/State/[facility] Co de Phone Number [place] [address] * (ABNORMAL) Hemogram (08/12/2022 8:37 AM EDT) White Blood Cell 6.8 4.0 - 9.5 x10(3)/mc L [facility] Red Blood Cell 3.85(L) 4.58 - 5.54 x10(6)/mc L [facility] Hemoglobin 12.9(L) 13.7 - 16.5 g/dL [facility] Hematocrit 37.7(L) 40.5 - 48.5 % [facility] Mean Cell Volume 97.9(H) 82.9 - 93.1 fL [facility] Mean Cell Hemoglobin 33.5(H) 27.5 - 32.1 pg [facility] Mean Cell Hemoglobin Concentration 34.2 32.0 - 35.7 g/dL [facility] Platelet 165 145 - 357 x10(3)/mc L [facility] RDW Standard Deviation 51.8(H) 36.0 - 45.0 fL [facility] RDW coefficient of variation 14.5(H) 11.4 - 13.8 % [facility] Mean Platelet Volume 9.7 7.6 - 12.9 fL [facility] NRBC% auto 0.0 % [facility] NRBC Absolute 0.000 0.000 - 0.000 x10(3)/mc L [facility] Blood 08/12/2022 8:37 AM EDT 08/12/2022 8:42 AM EDT Narrative Resulting Agency Comment Spec In Lab Albino Bartholomew MD HEMATOLOGY ORDERABLE S Performing Organization Address [facility] Co de Phone Number [place] [address] * T4, free (08/12/2022 8:37 AM EDT) Free T4 1.18 0.93 - 1.70 ng/dL [facility] Comment: Reference Interval (ng/dL): Females: ??First Trimester: 0.97-1.68 ??Second Trimester: 0.77-1.51 ??Third Trimester: 0.77-1.49 Blood 08/12/2022 8:37 AM EDT 08/12/2022 8:42 AM EDT Narrative Resulting Agency Comment Spec In Lab Albino Bartholomew MD CHEMISTRY ORDERABLES Performing Organization Address [facility] Co de Phone Number [facility] [place] [address] * (ABNORMAL) TSH (08/12/2022 8:37 AM EDT) Thyroid Stimulating Hormone 16.70(H) 0.27 - 4.20 mcIU/mL [facility] Comment: Reference Interval (mcIU/mL): Females: ??First Trimester: 0.23-3.88 ??Second Trimester: 0.22-3.90 ??Third Trimester: 0.44-4.66 Blood 08/12/2022 8:37 AM EDT 08/12/2022 8:42 AM EDT Narrative Resulting Agency Comment Spec In Lab Albino Bartholomew MD CHEMISTRY ORDERABLES [facility] [place] [address] * (ABNORMAL) Comprehensive metabolic panel (non-fasting) (08/12/2022 8:37 AM EDT) Glucose 107 65 - 199 mg/dL [facility] Comment:Diabetes: >=200 mg/d L plus symptoms Blood Urea Nitrogen 17 10 - 20 mg/dL [facility] Creatinine 1.20 0.80 - 1.50 mg/dL [facility] Sodium 144 135 - 145 mmol/L [facility] Potassium 3.8 3.5 - 5.0 mmol/L [facility] Comment: Please note: ??Patients with WBC >100,000 may have falsely elevated Potassium levels. ??For accurate Potassium quantification in these patients send serum separator tube (gold top) for subsequent determinations. ??Contact the Clinical Chemistry Laboratory if there are any questions. Chloride 108(H) 98 - 107 mmol/L [facility] Carbon Dioxide 28 22 - 31 mmol/L [facility] Anion Gap 8 5 - 15 mmol/L [facility] Calcium 8.8 8.5 - 10.5 mg/dL [facility] Protein, Total 6.2 6.1 - 8.0 g/dL [facility] Albumin 4.0 3.2 - 5.2 g/dL [facility] Aspartate Aminotransferase 42(H) 0 - 39 unit/L [facility] Alanine Aminotransferase 78(H) 0 - 55 unit/L [facility] Alkaline Phosphatase 111 40 - 130 unit/L [facility] Bilirubin, Total 0.5 0.2 - 1.3 mg/dL [facility] Est Glomerular Filtration Rate 66 >=60 mL/min/1. 73 m?? [facility] Comment: This patient's estimated GFR [...] and symptoms in addition to eGFR. Blood 08/12/2022 8:37 AM EDT 08/12/2022 8:42 AM EDT Narrative Resulting Agency Comment Spec In Lab Albino Bartholomew MD CHEMISTRY ORDERABLES Performing Organization Address City/[facility] Co de Phone Number [place] [address] documented in this encounter Visit Diagnoses Diagnosis Metastatic 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, unspecified laterality High risk medication use Encounter for long-term (current) use of other medications Abnormal thyroid function test Nonspecific abnormal results of thyroid function study Autoimmune hepatitis documented in this encounter Care Teams Information Technology Consultant Relationship Specialty Start Date End Date Juan Dempsey MD [address] [place] [id number] PCP - General Emergency Medicine 08/20/21 documented as of this encounter
--- OUTSIDE RECORDS SUMMARY | 2024-02-03 16:54 | XMS_ITS | Encounter Summary ---
Author Organization [facility] Address [facility] [place] [address] Care Team Providers Care Clinical Rehab Specialist Name Role Phone Juan Dempsey MD Primary Care Provider [phone] Reason for Visit * Reason Comments Follow-up Encounter Details Date Type Department Care Team (Late st Contact Info) Description 06/26/2022 3:00 PM EST Office Visit Hematology [place] [address] Albino Costello MD [facility] [place] [address] Kyle Donohue PA [facility] [place] [address] Metastatic 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, unspecified laterality (Primary Dx); High risk medication use; Abnormal thyroid function [...] Sign Reading Time Taken Comments Blood Pressure 97/67 06/26/2022 2:42 PM EST Pulse 68 06/26/2022 2:42 PM EST Temperature 36.1 ??C (97 ??F) 06/26/2022 2:42 PM EST Respiratory Rate 18 06/26/2022 2:42 PM EST Oxygen Saturation 97% 06/26/2022 2:42 PM EST Inhaled Oxygen Concentration - - Weight 95 kg (209 lb 7 oz) 06/26/2022 2:42 PM ES T Height 181.7 cm (5' 11.54) 06/26/2022 2:[address] Body Mass Index 28.78 06/26/2022 2:42 PM EST documented in this encounter Progress Notes * Albino Costello MD - 06/26/2022 3:00 PM EST Images from the original note [...] tolerates cabozantinib reasonably well with some dry hives, dry skin and mild soreness of the throat along with cough. No nausea or vomiting. Bowel movements are regular. Patient Active Problem List Diagnosis Code ??? [...] BLOOD PRESSURE ??? budesonide EC (ENTOCORT EC) 9 mg, Oral, EVERY MORNING ??? 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 Wt Readings from Last 3 Encounters: 05/20/22 98.2 kg (216 lb 9.6 oz) 04/15/22 104.5 kg (230 lb 6.1 oz) 03/18/22 109.5 kg (241 lb 6.5 oz) ECOG PS: 0 General: NAD, pleasant, [...] Psych: Conversant, normal mood and affect. Vitals: There were no vitals taken for this visit. Lab results: Recent Results (from the past 24 hour(s)) Comprehensive metabolic panel (non-fasting) Result Value Ref Range Glucose Lvl 117 65 - 199 mg/dL BUN 28 (H) 10 - 20 mg/dL Creatinine 1.80 (H) 0.80 - 1.50 mg/dL Sodium 138 135 - 145 mmol/L Potassium 3.9 3.5 - 5.0 mmol/L Chloride 102 98 - 107 mmol/L CO2 27 22 - 31 mmol/L Anion Gap 9 5 - 15 mmol/L Calcium 9.1 8.5 - 10.5 mg/dL Total Protein 6.6 6.1 - 8.0 g/dL Albumin 4.2 3.2 - 5.2 g/dL AST 42 (H) 0 - 39 unit/L ALT 86 (H) 0 - 55 unit/L Alk Phos 121 40 - 130 unit/L Total Bilirubin 0.6 0.2 - 1.3 mg/dL Estimated GFR 41 (L) >=60 mL/min/1.73 m?? TSH Result Value Ref Range TSH 10.60 (H) 0.27 - 4.20 mcIU/mL T4, free Result Value Ref Range Free T4 1.34 0.93 - 1.70 ng/dL Hemogram Result Value Ref Range WBC 7.1 4.0 - 9.5 x10(3)/mcL RBC 4.12 (L) 4.58 - 5.54 x10(6)/mcL Hemoglobin 13.2 (L) 13.7 - 16.5 g/dL Hematocrit 38.2 (L) 40.5 - 48.5 % MCV 92.7 82.9 - 93.1 fL MCH 32.0 27.5 - 32.1 pg MCHC 34.6 32.0 - 35.7 g/dL Platelets 176 145 - 357 x10(3)/mcL RDWSD 60.3 (H) 36.0 - 45.0 fL RDWCV 17.5 (H) 11.4 - 13.8 % MPV 9.7 7.6 - 12.9 fL nRBC % Auto 0.0 % nRBC Abs Auto 0.000 0.000 - 0.000 x10(3)/mcL Differential, Automated Result Value Ref Range Neutrophils % 63.7 % Neutr Abs (ANC) 4.50 1.70 - 6.10 x10(3)/mcL Lymphocytes % 28.5 % Lymphocytes Abs 2.0 0.9 - 3.2 x10(3)/mcL Monocytes % 4.7 % Monocyte Abs 0.3 0.3 - 0.9 x10(3)/mcL Eosinophils % 1.8 % Eosinophils Abs 0.1 0.0 - 0.4 x10(3)/mcL Basophils % 1.0 [...] (pT): ??pT3a ?Regional Lymph Nodes (pN): ??pN1 Imagin06/26/22 CT CAP: IMPRESSION 1. Slight interval increase [...] in the abdomen and pelvis. 10/20/21 CXR ([facility]): 10/16/21: IMPRESSION 1. Unexpected finding: New 6 [...] taper. Pt prefers to get labs at [facility]. We'll send orders and I'll ask our outside sales representative insurance to f/u on results. Advised pt to [...] back in 4 weeks with blood work. #Interval decrease in size, and increase in density [...] concerns and he agreed. Plan: - Continue Cabometyx 40 mg a day. C3D1 05/04/22 -Next visit in 4 weeks with CBC, CMP, TSH, free T4 and abdominal ultrasound - documented in this encounter Plan of Treatment Upcoming Encounters Date Type Department Care Team (Late st Contact Info) Description 02/16/2024 9:15 AM EDT Laboratory Appointment Lab at [facility] Hematology Oncology [address] [place] [id number] 02/16/2024 10:20 AM EDT Hospital [place] [phone] Mitali Griffiths APRN [facility] [place] [address] 02/16/2024 1:30 PM EDT Office Visit Hematology [place] [address] Albino Costello MD [facility] [place] [address] 04/17/2024 10:00 AM EST Office Visit Dermatology at [facility] [address] [place] [address] Oli Winter MD [address] [facility] [place] [address] documented as of this encounter Results * T4, free (06/02/2023 12:12 PM EST) Free T4 1.64 0.93 - 1.70 ng/dL [facility] Comment: Reference Interval (ng/dL): Females: ??First Trimester: 0.97-1.68 ??Second Trimester: 0.77-1.51 ??Third Trimester: 0.77-1.49 Blood 06/02/2023 12:1 2 PM EST 06/02/2023 12:23 PM EST Narrative Resulting Agency Comment Spec In Lab Albino Costello MD CHEMISTRY ORDERABLES Performing Organization Address City/[facility]/ZIP Co de Phone Number [facility] [place] [address] * TSH (06/02/2023 12:12 PM EST) Thyroid Stimulating Hormone 2.83 0.27 - 4.20 mcIU/mL [facility] Comment: Reference Interval (mcIU/mL): Females: ??First Trimester: 0.23-3.88 ??Second Trimester: 0.22-3.90 ??Third Trimester: 0.44-4.66 Blood 06/02/2023 12:1 2 PM EST 06/02/2023 12:23 PM EST Narrative Resulting Agency Comment Spec In Lab Albino Costello MD CHEMISTRY ORDERABLES Performing Organization Address City/[facility]/ZIP Co de Phone Number [facility] [place] [address] * (ABNORMAL) Comprehensive metabolic panel (non-fasting) (06/02/2023 12:12 PM EST) Glucose 112 65 - 199 mg/dL [facility] Comment:Diabetes: >=200 mg/d L plus symptoms Blood Urea Nitrogen 20 10 - 20 mg/dL [facility] Creatinine 1.53(H) 0.80 - 1.50 mg/dL [facility] Sodium 142 135 - 145 mmol/L [facility] Potassium 4.2 3.5 - 5.0 mmol/L [facility] Comment: Please note: ??Patients with WBC >100,000 may have falsely elevated Potassium levels. ??For accurate Potassium quantification in these patients send serum separator tube (gold top) for subsequent determinations. ??Contact the Clinical Chemistry Laboratory if there are any questions. Chloride 106 98 - 107 mmol/L [facility] Carbon Dioxide 27 22 - 31 mmol/L [facility] Anion Gap 9 5 - 15 mmol/L [facility] Calcium 9.2 8.5 - 10.5 mg/dL [facility] Protein, Total 6.5 6.1 - 8.0 g/dL [facility] Albumin 4.0 3.2 - 5.2 g/dL [facility] Aspartate Aminotransferase 26 0 - 39 unit/L [facility] Alanine Aminotransferase 28 0 - 55 unit/L [facility] Alkaline Phosphatase 124 40 - 130 unit/L [facility] Bilirubin, Total 0.3 0.2 - 1.3 mg/dL [facility] Est Glomerular Filtration Rate 49(L) >=60 mL/min/1. 73 m?? [facility] Comment: This patient's estimated GFR was [...] Resulting Agency Comment Spec In Lab Albino Costello MD CHEMISTRY ORDERABLES [facility] [place] [address] * T4, free (04/28/2023 1:47 PM EST) Free T4 1.57 0.93 - 1.70 ng/dL [facility] Comment: Reference Interval (ng/dL): Females: ??First Trimester: 0.97-1.68 ??Second Trimester: 0.77-1.51 ??Third Trimester: 0.77-1.49 Blood 04/28/2023 1:47 PM EST 04/28/2023 1:53 PM EST Narrative Resulting Agency Comment Spec In Lab Albino Costello MD CHEMISTRY ORDERABLES Performing Organization Address [facility] Co de Phone Number [facility] [place] [address] * TSH (04/28/2023 1:47 PM EST) Thyroid Stimulating Hormone 2.59 0.27 - 4.20 mcIU/mL [facility] Comment: Reference Interval (mcIU/mL): Females: ??First Trimester: 0.23-3.88 ??Second Trimester: 0.22-3.90 ??Third Trimester: 0.44-4.66 Blood 04/28/2023 1:47 PM EST 04/28/2023 1:53 PM EST Narrative Resulting Agency Comment Spec In Lab Albino Costello MD CHEMISTRY ORDERABLES Performing Organization Address [facility] de Phone Number [facility] [place] [address] * (ABNORMAL) Comprehensive metabolic panel (non-fasting) (04/28/2023 1:47 PM EST) Glucose 92 65 - 199 mg/dL [facility] Comment:Diabetes: >=200 mg/d L plus symptoms Blood Urea Nitrogen 23(H) 10 - 20 mg/dL [facility] Creatinine 1.81(H) 0.80 - 1.50 mg/dL [facility] Sodium 142 135 - 145 mmol/L [facility] Potassium 4.2 3.5 - 5.0 mmol/L [facility] Comment: Please note: ??Patients with WBC >100,000 may have falsely elevated Potassium levels. ??For accurate Potassium quantification in these patients send serum separator tube (gold top) for subsequent determinations. ??Contact the Clinical Chemistry Laboratory if there are any questions. Chloride 105 98 - 107 mmol/L [facility] Carbon Dioxide 27 22 - 31 mmol/L [facility] Anion Gap 10 5 - 15 mmol/L [facility] Calcium 9.1 8.5 - 10.5 mg/dL [facility] Protein, Total 6.5 6.1 - 8.0 g/dL [facility] Albumin 4.1 3.2 - 5.2 g/dL [facility] Aspartate Aminotransferase 40(H) 0 - 39 unit/L [facility] Alanine Aminotransferase 61(H) 0 - 55 unit/L [facility] Alkaline Phosphatase 127 40 - 130 unit/L [facility] Bilirubin, Total 0.3 0.2 - 1.3 mg/dL [facility] Est Glomerular Filtration Rate 40(L) >=60 mL/min/1. 73 m?? [facility] Comment: This patient's estimated GFR was [...] Resulting Agency Comment Spec In Lab Albino Costello MD CHEMISTRY ORDERABLES [facility] [place] [address] * T4, free (03/16/2023 1:33 PM EST) Free T4 1.21 0.93 - 1.70 ng/dL [facility] Comment: Reference Interval (ng/dL): Females: ??First Trimester: 0.97-1.68 ??Second Trimester: 0.77-1.51 ??Third Trimester: 0.77-1.49 Blood 03/16/2023 1:33 PM EST 03/16/2023 1:47 PM EST Narrative Resulting Agency Comment Spec In Lab Albino Costello MD CHEMISTRY ORDERABLES Performing Organization Address [facility] Co de Phone Number [facility] [place] [address] * (ABNORMAL) TSH (03/16/2023 1:33 PM EST) Thyroid Stimulating Hormone 5.27(H) 0.27 - 4.20 mcIU/mL [facility] Comment: Reference Interval (mcIU/mL): Females: ??First Trimester: 0.23-3.88 ??Second Trimester: 0.22-3.90 ??Third Trimester: 0.44-4.66 Blood 03/16/2023 1:33 PM EST 03/16/2023 1:47 PM EST Narrative Resulting Agency Comment Spec In Lab Albino Costello MD CHEMISTRY ORDERABLES Performing Organization Address [facility] Co de Phone Number [facility] [place] [address] * (ABNORMAL) Comprehensive metabolic panel (non-fasting) (03/16/2023 1:33 PM EST) Glucose 124 65 - 199 mg/dL [facility] Comment:Diabetes: >=200 mg/d L plus symptoms Blood Urea Nitrogen 15 10 - 20 mg/dL [facility] Creatinine 1.49 0.80 - 1.50 mg/dL [facility] Sodium 141 135 - 145 mmol/L [facility] Potassium 3.6 3.5 - 5.0 mmol/L [facility] Comment: Please note: ??Patients with WBC >100,000 may have falsely elevated Potassium levels. ??For accurate Potassium quantification in these patients send serum separator tube (gold top) for subsequent determinations. ??Contact the Clinical Chemistry Laboratory if there are any questions. Chloride 103 98 - 107 mmol/L [facility] Carbon Dioxide 27 22 - 31 mmol/L [facility] Anion Gap 11 5 - 15 mmol/L [facility] Calcium 8.9 8.5 - 10.5 mg/dL [facility] Protein, Total 6.1 6.1 - 8.0 g/dL [facility] Albumin 4.1 3.2 - 5.2 g/dL [facility] Aspartate Aminotransferase 46(H) 0 - 39 unit/L [facility] Alanine Aminotransferase 74(H) 0 - 55 unit/L [facility] Alkaline Phosphatase 123 40 - 130 unit/L [facility] Bilirubin, Total 0.3 0.2 - 1.3 mg/dL [facility] Est Glomerular Filtration Rate 51(L) >=60 mL/min/1. 73 m?? [facility] Comment: This patient's estimated GFR was [...] Resulting Agency Comment Spec In Lab Albino Costello MD CHEMISTRY ORDERABLES Performing Organization Address City/State/[facility] Co de Phone Number [facility] [place] [address] * T4, free (02/10/2023 9:11 AM EDT) Free T4 1.43 0.93 - 1.70 ng/dL [facility] Comment: Reference Interval (ng/dL): Females: ??First Trimester: 0.97-1.68 ??Second Trimester: 0.77-1.51 ??Third Trimester: 0.77-1.49 Blood 02/10/2023 9:11 AM EDT 02/10/2023 9:18 AM EDT Albino Costello MD CHEMISTRY ORDERABLES Performing Organization Address City/[facility] Co de Phone Number [facility] [place] [address] * (ABNORMAL) TSH (02/10/2023 9:11 AM EDT) Thyroid Stimulating Hormone 6.10(H) 0.27 - 4.20 mcIU/mL [facility] Comment: Reference Interval (mcIU/mL): Females: ??First Trimester: 0.23-3.88 ??Second Trimester: 0.22-3.90 ??Third Trimester: 0.44-4.66 Blood 02/10/2023 9:11 AM EDT 02/10/2023 9:18 AM EDT Albino Costello MD CHEMISTRY ORDERABLES Performing Organization Address [facility] Co de Phone Number [facility] [place] [address] * (ABNORMAL) Comprehensive metabolic panel (non-fasting) (02/10/2023 9:11 AM EDT) Glucose 93 65 - 199 mg/dL [facility] Comment:Diabetes: >=200 mg/d L plus symptoms Blood Urea Nitrogen 24(H) 10 - 20 mg/dL [facility] Creatinine 1.44 0.80 - 1.50 mg/dL [facility] Sodium 142 135 - 145 mmol/L [facility] Potassium 3.6 3.5 - 5.0 mmol/L [facility] Comment: Please note: ??Patients with WBC >100,000 may have falsely elevated Potassium levels. ??For accurate Potassium quantification in these patients send serum separator tube (gold top) for subsequent determinations. ??Contact the Clinical Chemistry Laboratory if there are any questions. Chloride 105 98 - 107 mmol/L [facility] Carbon Dioxide 29 22 - 31 mmol/L [facility] Anion Gap 8 5 - 15 mmol/L [facility] Calcium 9.2 8.5 - 10.5 mg/dL [facility] Protein, Total 6.2 6.1 - 8.0 g/dL [facility] Albumin 4.0 3.2 - 5.2 g/dL [facility] Aspartate Aminotransferase 30 0 - 39 unit/L [facility] Alanine Aminotransferase 38 0 - 55 unit/L [facility] Alkaline Phosphatase 106 40 - 130 unit/L [facility] Bilirubin, Total 0.4 0.2 - 1.3 mg/dL [facility] Est Glomerular Filtration Rate 53(L) >=60 mL/min/1. 73 m?? [facility] Comment: This patient's estimated GFR was [...] AM EDT 02/10/2023 9:18 AM EDT Albino Costello MD CHEMISTRY ORDERABLES Performing Organization Address City/[facility]/ZIP Co de Phone Number [facility] [place] [address] * T4, free (01/13/2023 8:30 AM EDT) Free T4 1.46 0.93 - 1.70 ng/dL [facility] Comment: Reference Interval (ng/dL): Females: ??First Trimester: 0.97-1.68 ??Second Trimester: 0.77-1.51 ??Third Trimester: 0.77-1.49 Blood 01/13/2023 8:30 AM EDT 01/13/2023 9:02 AM EDT Narrative Resulting Agency Comment Spec In Lab Albino Costello MD CHEMISTRY ORDERABLES Performing Organization Address City/[facility]/ZIP Co de Phone Number [facility] [place] [address] * (ABNORMAL) TSH (01/13/2023 8:30 AM EDT) Thyroid Stimulating Hormone 6.29(H) 0.27 - 4.20 mcIU/mL [facility] Comment: Reference Interval (mcIU/mL): Females: ??First Trimester: 0.23-3.88 ??Second Trimester: 0.22-3.90 ??Third Trimester: 0.44-4.66 Blood 01/13/2023 8:30 AM EDT 01/13/2023 9:02 AM EDT Narrative Resulting Agency Comment Spec In Lab Albino Costello MD CHEMISTRY ORDERABLES [facility] [place] [address] * (ABNORMAL) Comprehensive metabolic panel (non-fasting) (01/13/2023 8:30 AM EDT) Glucose 119 65 - 199 mg/dL [facility] Comment:Diabetes: >=200 mg/d L plus symptoms Blood Urea Nitrogen 20 10 - 20 mg/dL [facility] Creatinine 1.40 0.80 - 1.50 mg/dL [facility] Sodium 141 135 - 145 mmol/L [facility] Potassium 3.5 3.5 - 5.0 mmol/L [facility] Comment: Please note: ??Patients with WBC >100,000 may have falsely elevated Potassium levels. ??For accurate Potassium quantification in these patients send serum separator tube (gold top) for subsequent determinations. ??Contact the Clinical Chemistry Laboratory if there are any questions. Chloride 103 98 - 107 mmol/L [facility] Carbon Dioxide 28 22 - 31 mmol/L [facility] Anion Gap 10 5 - 15 mmol/L [facility] Calcium 9.5 8.5 - 10.5 mg/dL [facility] Protein, Total 7.0 6.1 - 8.0 g/dL [facility] Albumin 4.2 3.2 - 5.2 g/dL [facility] Aspartate Aminotransferase 28 0 - 39 unit/L [facility] Alanine Aminotransferase 43 0 - 55 unit/L [facility] Alkaline Phosphatase 103 40 - 130 unit/L [facility] Bilirubin, Total 0.5 0.2 - 1.3 mg/dL [facility] Est Glomerular Filtration Rate 55(L) >=60 mL/min/1. 73 m?? [facility] Comment: This patient's estimated GFR was [...] Resulting Agency Comment Spec In Lab Albino Costello MD CHEMISTRY ORDERABLES Performing Organization Address City/[facility] Co de Phone Number [facility] [place] [address] * T4, free (12/01/2022 1:45 PM EDT) Free T4 1.47 0.93 - 1.70 ng/dL [facility] Comment: Reference Interval (ng/dL): Females: ??First Trimester: 0.97-1.68 ??Second Trimester: 0.77-1.51 ??Third Trimester: 0.77-1.49 Blood 12/01/2022 1:45 PM EDT 12/01/2022 1:54 PM EDT Narrative Resulting Agency Comment Spec In Lab Albino Costello MD CHEMISTRY ORDERABLES Performing Organization Address City/[facility] Co de Phone Number [facility] [place] [address] * (ABNORMAL) TSH (12/01/2022 1:45 PM EDT) Thyroid Stimulating Hormone 4.26(H) 0.27 - 4.20 mcIU/mL [facility] Comment: Reference Interval (mcIU/mL): Females: ??First Trimester: 0.23-3.88 ??Second Trimester: 0.22-3.90 ??Third Trimester: 0.44-4.66 Blood 12/01/2022 1:45 PM EDT 12/01/2022 1:54 PM EDT Narrative Resulting Agency Comment Spec In Lab Albino Costello MD CHEMISTRY ORDERABLES [facility] [place] [address] * (ABNORMAL) Comprehensive metabolic panel (non-fasting) (12/01/2022 1:45 PM EDT) Glucose 122 65 - 199 mg/dL [facility] Comment:Diabetes: >=200 mg/d L plus symptoms Blood Urea Nitrogen 24(H) 10 - 20 mg/dL [facility] Creatinine 1.39 0.80 - 1.50 mg/dL [facility] Sodium 139 135 - 145 mmol/L [facility] Potassium 3.4(L) 3.5 - 5.0 mmol/L [facility] Comment: Please note: ??Patients with WBC >100,000 may have falsely elevated Potassium levels. ??For accurate Potassium quantification in these patients send serum separator tube (gold top) for subsequent determinations. ??Contact the Clinical Chemistry Laboratory if there are any questions. Chloride 103 98 - 107 mmol/L [facility] Carbon Dioxide 27 22 - 31 mmol/L [facility] Anion Gap 9 5 - 15 mmol/L [facility] Calcium 8.7 8.5 - 10.5 mg/dL [facility] Protein, Total 6.1 6.1 - 8.0 g/dL [facility] Albumin 3.7 3.2 - 5.2 g/dL [facility] Aspartate Aminotransferase 30 0 - 39 unit/L [facility] Alanine Aminotransferase 46 0 - 55 unit/L [facility] Alkaline Phosphatase 105 40 - 130 unit/L [facility] Bilirubin, Total 0.2 0.2 - 1.3 mg/dL [facility] Est Glomerular Filtration Rate 56(L) >=60 mL/min/1. 73 m?? [facility] Comment: This patient's estimated GFR was [...] Resulting Agency Comment Spec In Lab Albino Costello MD CHEMISTRY ORDERABLES Performing Organization Address [facility] Co de Phone Number [facility] [place] [address] * T4, free (11/06/2022 10:00 AM EDT) Free T4 1.32 0.93 - 1.70 ng/dL [facility] Comment: Reference Interval (ng/dL): Females: ??First Trimester: 0.97-1.68 ??Second Trimester: 0.77-1.51 ??Third Trimester: 0.77-1.49 Blood 11/06/2022 10:0 0 AM EDT 11/06/2022 10:11 AM EDT Narrative Resulting Agency Comment Spec In Lab Albino Costello MD CHEMISTRY ORDERABLES Performing Organization Address City/[facility] Co de Phone Number [facility] [place] [address] * (ABNORMAL) TSH (11/06/2022 10:00 AM EDT) Thyroid Stimulating Hormone 6.47(H) 0.27 - 4.20 mcIU/mL [facility] Comment: Reference Interval (mcIU/mL): Females: ??First Trimester: 0.23-3.88 ??Second Trimester: 0.22-3.90 ??Third Trimester: 0.44-4.66 Blood 11/06/2022 10:0 0 AM EDT 11/06/2022 10:11 AM EDT Narrative Resulting Agency Comment Spec In Lab Albino Costello MD CHEMISTRY ORDERABLES [facility] [place] [address] * (ABNORMAL) Comprehensive metabolic panel (non-fasting) (11/06/2022 10:00 AM EDT) Glucose 108 65 - 199 mg/dL [facility] Comment:Diabetes: >=200 mg/d L plus symptoms Blood Urea Nitrogen 21(H) 10 - 20 mg/dL [facility] Creatinine 1.31 0.80 - 1.50 mg/dL [facility] Sodium 141 135 - 145 mmol/L [facility] Potassium 3.5 3.5 - 5.0 mmol/L [facility] Comment: Please note: ??Patients with WBC >100,000 may have falsely elevated Potassium levels. ??For accurate Potassium quantification in these patients send serum separator tube (gold top) for subsequent determinations. ??Contact the Clinical Chemistry Laboratory if there are any questions. Chloride 103 98 - 107 mmol/L [facility] Carbon Dioxide 29 22 - 31 mmol/L [facility] Anion Gap 9 5 - 15 mmol/L [facility] Calcium 8.9 8.5 - 10.5 mg/dL [facility] Protein, Total 6.6 6.1 - 8.0 g/dL [facility] Albumin 4.0 3.2 - 5.2 g/dL [facility] Aspartate Aminotransferase 37 0 - 39 unit/L [facility] Alanine Aminotransferase 57(H) 0 - 55 unit/L [facility] Alkaline Phosphatase 107 40 - 130 unit/L [facility] Bilirubin, Total 0.3 0.2 - 1.3 mg/dL [facility] Est Glomerular Filtration Rate 60 >=60 mL/min/1. 73 m?? [facility] Comment: This patient's estimated GFR was [...] Resulting Agency Comment Spec In Lab Albino Costello MD CHEMISTRY ORDERABLES Performing Organization Address [facility] Co de Phone Number [facility] [place] [address] * T4, free (10/14/2022 12:23 PM EDT) Free T4 1.42 0.93 - 1.70 ng/dL [facility] Comment: Reference Interval (ng/dL): Females: ??First Trimester: 0.97-1.68 ??Second Trimester: 0.77-1.51 ??Third Trimester: 0.77-1.49 Blood 10/14/2022 12:2 3 PM EDT 10/14/2022 12:43 PM EDT Narrative Resulting Agency Comment Spec In Lab Albino Costello MD CHEMISTRY ORDERABLES Performing Organization Address City/[facility] Co de Phone Number [facility] [place] [address] * TSH (10/14/2022 12:23 PM EDT) Thyroid Stimulating Hormone 3.13 0.27 - 4.20 mcIU/mL [facility] Comment: Reference Interval (mcIU/mL): Females: ??First Trimester: 0.23-3.88 ??Second Trimester: 0.22-3.90 ??Third Trimester: 0.44-4.66 Blood 10/14/2022 12:2 3 PM EDT 10/14/2022 12:43 PM EDT Narrative Resulting Agency Comment Spec In Lab Albino Costello MD CHEMISTRY ORDERABLES [facility] [place] [address] * (ABNORMAL) Comprehensive metabolic panel (non-fasting) (10/14/2022 12:23 PM EDT) Glucose 125 65 - 199 mg/dL [facility] Comment:Diabetes: >=200 mg/d L plus symptoms Blood Urea Nitrogen 16 10 - 20 mg/dL [facility] Creatinine 1.23 0.80 - 1.50 mg/dL [facility] Sodium 138 135 - 145 mmol/L [facility] Potassium 3.9 3.5 - 5.0 mmol/L [facility] Comment: Please note: ??Patients with WBC >100,000 may have falsely elevated Potassium levels. ??For accurate Potassium quantification in these patients send serum separator tube (gold top) for subsequent determinations. ??Contact the Clinical Chemistry Laboratory if there are any questions. Chloride 105 98 - 107 mmol/L [facility] Carbon Dioxide 26 22 - 31 mmol/L [facility] Anion Gap 7 5 - 15 mmol/L [facility] Calcium 9.1 8.5 - 10.5 mg/dL [facility] Protein, Total 6.4 6.1 - 8.0 g/dL [facility] Albumin 4.0 3.2 - 5.2 g/dL [facility] Aspartate Aminotransferase 41(H) 0 - 39 unit/L [facility] Alanine Aminotransferase 87(H) 0 - 55 unit/L [facility] Alkaline Phosphatase 103 40 - 130 unit/L [facility] Bilirubin, Total 0.3 0.2 - 1.3 mg/dL [facility] Est Glomerular Filtration Rate 64 >=60 mL/min/1. 73 m?? [facility] Comment: This patient's estimated GFR was [...] Resulting Agency Comment Spec In Lab Albino Costello MD CHEMISTRY ORDERABLES Performing Organization Address [facility] Co de Phone Number [facility] [place] [address] * T4, free (09/16/2022 11:59 AM EDT) Free T4 1.30 0.93 - 1.70 ng/dL [facility] Comment: Reference Interval (ng/dL): Females: ??First Trimester: 0.97-1.68 ??Second Trimester: 0.77-1.51 ??Third Trimester: 0.77-1.49 Blood 09/16/2022 11:5 9 AM EDT 09/16/2022 12:13 PM EDT Narrative Resulting Agency Comment Spec In Lab Albino Costello MD CHEMISTRY ORDERABLES Performing Organization Address [facility] Co de Phone Number [facility] [place] [address] * (ABNORMAL) TSH (09/16/2022 11:59 AM EDT) Thyroid Stimulating Hormone 7.43(H) 0.27 - 4.20 mcIU/mL [facility] Comment: Reference Interval (mcIU/mL): Females: ??First Trimester: 0.23-3.88 ??Second Trimester: 0.22-3.90 ??Third Trimester: 0.44-4.66 Blood 09/16/2022 11:5 9 AM EDT 09/16/2022 12:13 PM EDT Narrative Resulting Agency Comment Spec In Lab Albino Costello MD CHEMISTRY ORDERABLES [facility] [place] [address] * (ABNORMAL) Comprehensive metabolic panel (non-fasting) (09/16/2022 11:59 AM EDT) Glucose 100 65 - 199 mg/dL [facility] Comment:Diabetes: >=200 mg/d L plus symptoms Blood Urea Nitrogen 19 10 - 20 mg/dL [facility] Creatinine 1.14 0.80 - 1.50 mg/dL [facility] Sodium 143 135 - 145 mmol/L [facility] Potassium 3.7 3.5 - 5.0 mmol/L [facility] Comment: Please note: ??Patients with WBC >100,000 may have falsely elevated Potassium levels. ??For accurate Potassium quantification in these patients send serum separator tube (gold top) for subsequent determinations. ??Contact the Clinical Chemistry Laboratory if there are any questions. Chloride 106 98 - 107 mmol/L [facility] Carbon Dioxide 30 22 - 31 mmol/L [facility] Anion Gap 7 5 - 15 mmol/L [facility] Calcium 9.0 8.5 - 10.5 mg/dL [facility] Protein, Total 6.3 6.1 - 8.0 g/dL [facility] Albumin 3.9 3.2 - 5.2 g/dL [facility] Aspartate Aminotransferase 79(H) 0 - 39 unit/L [facility] Alanine Aminotransferase 154(H) 0 - 55 unit/L [facility] Alkaline Phosphatase 99 40 - 130 unit/L [facility] Bilirubin, Total 0.3 0.2 - 1.3 mg/dL [facility] Est Glomerular Filtration Rate 70 >=60 mL/min/1. 73 m?? [facility] Comment: This patient's estimated GFR was [...] Resulting Agency Comment Spec In Lab Albino Costello MD CHEMISTRY ORDERABLES Performing Organization Address City/[facility] Co de Phone Number [facility] [place] [address] * T4, free (08/12/2022 8:37 AM EDT) Free T4 1.18 0.93 - 1.70 ng/dL [facility] Comment: Reference Interval (ng/dL): Females: ??First Trimester: 0.97-1.68 ??Second Trimester: 0.77-1.51 ??Third Trimester: 0.77-1.49 Blood 08/12/2022 8:37 AM EDT 08/12/2022 8:42 AM EDT Narrative Resulting Agency Comment Spec In Lab Albino Costello MD CHEMISTRY ORDERABLES Performing Organization Address [facility] Co de Phone Number [facility] [place] [address] * (ABNORMAL) TSH (08/12/2022 8:37 AM EDT) Thyroid Stimulating Hormone 16.70(H) 0.27 - 4.20 mcIU/mL [facility] Comment: Reference Interval (mcIU/mL): Females: ??First Trimester: 0.23-3.88 ??Second Trimester: 0.22-3.90 ??Third Trimester: 0.44-4.66 Blood 08/12/2022 8:37 AM EDT 08/12/2022 8:42 AM EDT Narrative Resulting Agency Comment Spec In Lab Albino Costello MD CHEMISTRY ORDERABLES Performing Organization Address City/[facility] Co de Phone Number [facility] [place] [address] * (ABNORMAL) Comprehensive metabolic panel (non-fasting) (08/12/2022 8:37 AM EDT) Glucose 107 65 - 199 mg/dL [facility] Comment:Diabetes: >=200 mg/d L plus symptoms Blood Urea Nitrogen 17 10 - 20 mg/dL [facility] Creatinine 1.20 0.80 - 1.50 mg/dL [facility] Sodium 144 135 - 145 mmol/L [facility] Potassium 3.8 3.5 - 5.0 mmol/L [facility] Comment: Please note: ??Patients with WBC >100,000 may have falsely elevated Potassium levels. ??For accurate Potassium quantification in these patients send serum separator tube (gold top) for subsequent determinations. ??Contact the Clinical Chemistry Laboratory if there are any questions. Chloride 108(H) 98 - 107 mmol/L [facility] Carbon Dioxide 28 22 - 31 mmol/L [facility] Anion Gap 8 5 - 15 mmol/L [facility] Calcium 8.8 8.5 - 10.5 mg/dL [facility] Protein, Total 6.2 6.1 - 8.0 g/dL [facility] Albumin 4.0 3.2 - 5.2 g/dL [facility] Aspartate Aminotransferase 42(H) 0 - 39 unit/L [facility] Alanine Aminotransferase 78(H) 0 - 55 unit/L [facility] Alkaline Phosphatase 111 40 - 130 unit/L [facility] Bilirubin, Total 0.5 0.2 - 1.3 mg/dL [facility] Est Glomerular Filtration Rate 66 >=60 mL/min/1. 73 m?? [facility] Comment: This patient's estimated GFR was [...] Resulting Agency Comment Spec In Lab Albino Costello MD CHEMISTRY ORDERABLES [facility] [place] [address] * US Retroperitoneal Complete (07/13/2022 11:15 AM [...] recurrence. 5. ??Bladder not distended for evaluation. Thank you for letting us participate in the care of this patient. If you are a health care provider and have any questions regarding this report, please contact the number above. For patients who have questions, please contact the health account executive healthcare that requested your imaging first. ?Josselyn Gaona [facility] Tetryl Wringer Operator Electronically Signed Final Report ?? 07/13/2022 12:57 pm Narrative 07/13/2022 12:58 PM EDT Renal ? (Signed Final 07/13/2022 12:57 pm) PATIENT INFO: ID #: ? [id number] ?: ??[birth year] (67 yrs)(M) Name: ? RAYMUNDO TENORIO ? Visit Date: 07/13/2022 10:56 am PERFORMED BY: Attending: ?Candelaria CRAVEN, Josselyn Hudson Performed By: ? Purvi Miles RDMS Referred By: ?ALBINO COSTELLO Location: ? [place] SERVICE(S) PROVIDED: URETRO - Retroperitoneal Complete - [id number] ? [id number] INDICATIONS: Change in appearance of exophytic focus [...] 07/13/2022 12:57 pm) PATIENT INFO: ID #: [id number] : 55 (67 yrs)(M) Name: RAYMUNDO TENORIO Visit Date: 07/13/2022 10:56 am PERFORMED BY: Attending: Josselyn Gaona MD Performed By: Purvi Miles RDMS Referred By: ALBINO COSTELLO Location: [place] SERVICE(S) PROVIDED: URETRO - Retroperitoneal Complete - [id number] INDICATIONS: Change in appearance of exophytic focus [...] recurrence. 5. Bladder not distended for evaluation. Electronically signed by: Josselyn Gaona MD, [facility] ([phone]), at 07/13/2022 12:50 PM Thank you for letting us participate in the care of this patient. If you are a health care provider and have any questions regarding this report, please contact the number above. For patients who have questions, please contact the health account executive healthcare that requested your imaging first. Josselyn Gaona, [facility] Tetryl Wringer Operator Electronically Signed Final Report 07/13/2022 12:57 pm Albino Costello MD IMG US GEN ORDERABLE S documented in this encounter Visit Diagnoses Diagnosis Metastatic 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, unspecified laterality- Primary High risk medication use Encounter for long-term (current) use of other medications Abnormal thyroid function test Nonspecific abnormal results of thyroid function study Metastatic 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, unspecified laterality documented in this encounter Care Teams Clinical Rehab Specialist Relationship Specialty Start Date End Date Juan Dempsey MD [address] [place] [id number] PCP - General Emergency Medicine 08/20/21 documented as of this encounter
--- OUTSIDE RECORDS SUMMARY | 2024-02-03 16:55 | XMS_ITS | Encounter Summary ---
Author Organization [facility] Address [facility] [place] [address] Care Team Providers Care [employer] Sergeant Name Role Phone Juan Dempsey MD Primary Care Provider [phone] Encounter Details Date Type Department Care Team (Latest Contact Info) Description 05/20/2022 7:47 AM EST - 05/20/2022 11:59 PM EST Hospital Encounter [place]ematology [place] [phone] Drug-induced liver injury; Metastatic 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, unspecified laterality; Abnormal thyroid function test; Autoimmune hepatitis; Renal cell carcinoma, unspecified laterality; Elevated LFTs Discharge Disposition: Home Social History Tobacco Use [...] Take 100 mg by mouth daily. 04/11/2019 clotrimazole (Mycelex) 10 mg Neri Take 10 mg by mouth 5 times daily. 05/22/2022 nystatin (Mycostatin) 100,000 unit/mL Suspension Take 5 mLs by mouth 4 times daily. 473 mL 04/30/2022 05/22/2022 cabozantinib (Cabometyx) 40 mg tabletIndications:fatmata l cell [...] [facility] Hematology Oncology [address] [place] [address] 02/16/2024 10:20 AM EDT Hospital [place] [phone] Mitali Griffiths APRN [facility] [address] HEMATOLOGY [place] [address] 02/16/2024 1:30 PM EDT Office Visit Hematology [place] [address] Albino Bartholomew MD [facility] [address] HEMATOLOGY [place] [address] 04/17/2024 10:00 AM EST Office Visit Dermatology at [facility] [address] [place] [address] Oli Winter MD [address] [facility] [place] [address] Scheduled Orders Name Type Priority Associated Diagnoses Orde r Schedule Hepatic Function Panel Lab Routine Autoimmune hepatitis 1 Occurrences starting 05/20/2022 until 05/20/2022 Comprehensive metabolic panel (non-fasting) Lab STAT Renal cell carcinoma, unspecified laterality Elevated LFTs 1 Occurrences starting 05/20/2022 until 05/20/2022 Comprehensive metabolic panel (non-fasting) Lab Routine Renal cell carcinoma, unspecified laterality Elevated LFTs 1 Occurrences starting 05/20/2022 until 05/20/2022 documented as of this encounter Procedures Procedure Name Priority Date/Time Associated Diagnosis Comments BILIRUBIN, DIRECT Routine 05/20/2022 7:5 6 AM EST HEMOGRAM Routine 05/20/2022 7:56 AM EST Metastatic renal cell carcinoma to lung, unspecified laterality DIFFERENTIAL, AUTOMATED Routine 05/20/2022 7:56 AM EST Metastatic renal cell carcinoma to lung, unspecified laterality HC CBC,PLT & AUTO DIFF Routine 3 7:56 AM EST Metastatic renal cell carcinoma to lung, unspecified laterality HC THYROID STIMULATING HORMONE, SERUM Routine 05/20/2022 7:56 AM EST Metastatic renal cell carcinoma to lung, unspecified laterality Abnormal thyroid function test HC FREE THYROXINE (T4) Routine 3 7:56 AM EST Metastatic renal cell carcinoma to lung, unspecified laterality Abnormal thyroid function test COMPREHENSIVE METABOLIC PANEL Routine 05/20/2022 7:56 AM EST Metastatic renal cell carcinoma to lung, unspecified laterality documented in this encounter Results * Bilirubin, Direct (05/20/2022 7:56 AM EST) Pathologist [facility] [place] Bilirubin, Direct 0.1 0.0 - 0.3 mg/dL [facility] Blood 05/20/2022 7:56 AM EST 05/20/2022 8:02 AM EST Narrative Resulting Agency Comment Spec In Lab Ana Pringle MD CHEMISTRY ORDERABLES [facility] [place] [address] * Differential, Automated (05/20/2022 7:56 AM EST) Pathologist [facility] Neutrophil % 62.0 % [facility] Neutrophil Absolute 4.46 1.70 - 6.10 x10(3)/[facility] Lymph % 30.3 % [facility] Lymphocytes Abs 2.2 0.9 - 3.2 x10(3)/[facility] Monocyte % 4.6 % [facility] Monocyte Abs 0.3 0.3 - 0.9 x10(3)/[facility] Eos % 2.2 % [facility] Eosinophils Abs 0.2 0.0 - 0.4 x10(3)/[facility] Basophil % 0.8 % [facility] Baso Absolute 0.1 0.0 - 0.1 x10(3)/[facility] Immature Gran % 0.10 % [facility] Comment: Immature granulocytes(IG's)percentage and absolute count will include metamyelocytes, myelocytes, and promyelocytes. Blood smears from CBCs yielding IG's will be scanned manually for concordance. If this scan disagrees with the automated IG or if promyelocytes are noted, a manual differential will be performed. Immature Gran Absolute 0.01 0.00 - 0.04 x10(3)/[facility] Blood 05/20/2022 7:56 AM EST 05/20/2022 8:02 AM EST Narrative Resulting Agency Comment Spec In Lab Albino Bartholomew MD HEMATOLOGY ORDERABLE S Performing Organization Address City/State/[facility] Co de Phone Number [facility] [place] [address] * (ABNORMAL) Hemogram (05/20/2022 7:56 AM EST) White Blood Cell 7.2 4.0 - 9.5 x10(3)/mc L [facility] Red Blood Cell 4.46(L) 4.58 - 5.54 x10(6)/mc L [facility] Hemoglobin 13.7 13.7 - 16.5 g/dL [facility] Hematocrit 39.8(L) 40.5 - 48.5 % [facility] Mean Cell Volume 89.2 82.9 - 93.1 fL [facility] Mean Cell Hemoglobin 30.7 27.5 - 32.1 pg [facility] Mean Cell Hemoglobin Concentration 34.4 32.0 - 35.7 g/dL [facility] Platelet 158 145 - 357 x10(3)/mc L [facility] RDW Standard Deviation 56.8(H) 36.0 - 45.0 fL [facility] RDW coefficient of variation 17.4(H) 11.4 - 13.8 % [facility] Mean Platelet Volume 9.9 7.6 - 12.9 fL [facility] NRBC% auto 0.0 % [facility] NRBC Absolute 0.000 0.000 - 0.000 x10(3)/mc L [facility] Blood 05/20/2022 7:56 AM EST 05/20/2022 8:02 AM EST Narrative Resulting Agency Comment Spec In Lab Albino Bartholomew MD HEMATOLOGY ORDERABLE S Performing Organization Address City/State/[facility] Co de Phone Number [facility] [place] [address] * (ABNORMAL) Comprehensive metabolic panel (non-fasting) (05/20/2022 7:56 AM EST) Glucose 103 65 - 199 mg/dL [facility] Comment:Diabetes: >=200 mg/d L plus symptoms Blood Urea Nitrogen 31(H) 10 - 20 mg/dL [facility] Creatinine 1.71(H) 0.80 - 1.50 mg/dL [facility] Sodium 141 135 - 145 mmol/L [facility] Potassium 3.4(L) 3.5 - 5.0 mmol/L [facility] Comment: Please note: ??Patients with WBC >100,000 may have falsely elevated Potassium levels. ??For accurate Potassium quantification in these patients send serum separator tube (gold top) for subsequent determinations. ??Contact the Clinical Chemistry Laboratory if there are any questions. Chloride 104 98 - 107 mmol/L [facility] Carbon Dioxide 26 22 - 31 mmol/L [facility] Anion Gap 11 5 - 15 mmol/L [facility] Calcium 9.4 8.5 - 10.5 mg/dL [facility] Protein, Total 6.5 6.1 - 8.0 g/dL [facility] Albumin 4.0 3.2 - 5.2 g/dL [facility] Aspartate Aminotransferase 62(H) 0 - 39 unit/L [facility] Alanine Aminotransferase 160(H) 0 - 55 unit/L [facility] Alkaline Phosphatase 122 40 - 130 unit/L [facility] Bilirubin, Total 0.5 0.2 - 1.3 mg/dL [facility] Est Glomerular Filtration Rate 43(L) >=60 mL/min/1. 73 m?? [facility] Comment: This patient's estimated GFR [...] and symptoms in addition to eGFR. Blood 05/20/2022 7:56 AM EST 05/20/2022 8:02 AM EST Narrative Resulting Agency Comment Spec In Lab Albino Bartholomew MD CHEMISTRY ORDERABLES Performing Organization Address City/[facility] Co de Phone Number [facility] [place] [address] * (ABNORMAL) TSH (05/20/2022 7:56 AM EST) Thyroid Stimulating Hormone 14.70(H) 0.27 - 4.20 mcIU/mL [facility] Comment: Reference Interval (mcIU/mL): Females: ??First Trimester: 0.23-3.88 ??Second Trimester: 0.22-3.90 ??Third Trimester: 0.44-4.66 Blood 05/20/2022 7:56 AM EST 05/20/2022 8:02 AM EST Narrative Resulting Agency Comment Spec In Lab Albino Bartholomew MD CHEMISTRY ORDERABLES Performing Organization Address City/[facility]/ZIP Co de Phone Number [facility] [address] * T4, free (05/20/2022 7:56 AM EST) Free T4 1.38 0.93 - 1.70 ng/dL [facility] Comment: Reference Interval (ng/dL): Females: ??First Trimester: 0.97-1.68 ??Second Trimester: 0.77-1.51 ??Third Trimester: 0.77-1.49 Blood 05/20/2022 7:56 AM EST 05/20/2022 8:02 AM EST Narrative Resulting Agency Comment Spec In Lab Albino Bartholomew MD CHEMISTRY ORDERABLES [facility] [place] [address] documented in this encounter Visit Diagnoses Diagnosis 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
--- OUTSIDE RECORDS SUMMARY | 2024-02-03 16:55 | XMS_ITS | Encounter Summary ---
Author Organization Formerly [facility] Address [facility] [place] [address] Care Team Providers Care Office Supervisor Name Role Phone Juan Dempsey MD Primary Care Provider [phone] Encounter Details Date Type Department Care Team (Late st Contact Info) Description 04/04/2022 Orders Only Hematology [place] [id number] Albino Bartholomew MD [facility] [place] [address] Social History Tobacco Use Types Packs/Day Years [...] [facility] [place] [place] [address] [place] [address] 02/16/2024 10:20 AM EDT Hospital [place] [address] Mitali Griffiths APRN [facility] [address] [place] [address] 02/16/2024 1:30 PM EDT Office Visit Hematology [place] [phone] Albino Bartholomew MD [facility] [address] [place] [address] 04/17/2024 10:00 AM EST Office Visit Dermatology at [facility] [address] [place] [address] Oli Winter MD [address] [facility] [place] [address] documented as of this encounter Visit Diagnoses Not on filedocumented in this encounter Care Teams Office Supervisor Relationship Specialty Start Date End Date Juan Dempsey MD [address] [place] [address] PCP - General Emergency Medicine 08/20/21 documented as of this encounter
--- OUTSIDE RECORDS SUMMARY | 2024-02-03 16:55 | XMS_ITS | Encounter Summary ---
Author Organization [facility] Address [facility] [place] [address] Care Team Providers Care Heel Sorter Name Role Phone Juan Dempsey MD Primary Care Provider [phone] Reason for Visit * Reason Comments Follow-up Encounter Details Date Type Department Care Team (Late st Contact Info) Description 03/18/2022 1:00 PM EST Office Visit Hematology [place] [address] Albino Bartholomew MD [facility] DR [place] [address] Zeke Brar MD [facility] HEMATOLOGY/[place] [address] Kyle Donohue PA [facility] DR [place] [address] Metastatic renal cell carcinoma to lung, unspecified [...] Sign Reading Time Taken Comments Blood Pressure 156/88 03/18/2022 12:48 PM EST Pulse 85 03/18/2022 12:48 PM EST Temperature 36.8 ??C (98.2 ??F) 03/18/2022 1 2:48 PM EST Respiratory Rate 20 03/18/2022 12:4 8 PM EST Oxygen Saturation 90% 03/18/2022 12: 48 PM EST Inhaled Oxygen Concentration - - Weight 109.5 kg (241 lb 6.5 oz) 022 12:48 PM EST Height 177.8 cm (5' 10) 03/18/2022 12: 48 PM EST Body Mass Index 34.64 03/18/2022 12:48 PM EST documented in this encounter Progress Notes * Zeke Brar MD - 03/18/2022 1:00 PM EST Images from the original note [...] Raymundo is in clinic for f/u on kidney cancer. LV with Dr. 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 He started cabozantinib 60mg daily on 02/26/22 and continued 5 days. Had treatment break for COVID for 5 days from 03/04. Restarted on cabozantinib after the break. Generally feeling ok. Brain feels foggy partly because lack of sleeping from frequent night time urination. Left shoulder pain and tingling going to the arm. Complaining lower back pain as well. He attributes it to lack of exercise. . Abdomen feels gassy. Intermittent diarrhea but stool is generally fine. Taste is less acute after taking cabozantinib and COVID. Has dry mouth and sore throat. Checked strep throat yesterday, which was negative. Nose dryness. BP is higher than usual. Seeing PCP next week. Urinary frequency goes to bathroom at least 2-3 times a night. No UTI symptoms. No skin change. Patient Active Problem List Diagnosis Code ??? Renal mass N28.89 ??? Renal cell carcinoma C64.9 ??? Medication management Z79.899 PMH, PSH, and current medications reviewed, as documented in the electronic medical record. Current Outpatient Medications on File Prior to Visit Medication Sig Dispense Refill ??? meclizine (Antivert) 25 mg Tablet Take 25 mg by mouth 3 times daily as needed. ??? cabozantinib (Cabometyx) 60 mg tablet Take 1 tablet (60 mg) by mouth daily. Take on an empty stomach. Call clinic before starting medication. Indications: renal cell carcinoma 30 tablet 11 ? ? budesonide EC (Entocort EC) 3 mg Capsule, Delayed & Ext.Release Take 3 capsules by mouth every morning. (Patient taking differently: Take 3 mg by mouth every morning.) 90 capsule 3 ??? Eliquis 5 mg Tablet TAKE TWO TABLETS BY MOUTH TWICE A DAY FOR 10 DAYS THEN ONE TABLET TWO TIMESA DAY ??? amLODIPine (Norvasc) 10 mg Tablet TAKE ONE TABLET BY MOUTH EVERY DAY FOR BLOOD PRESSURE ??? diphenhydrAMINE (Benadryl) 25 mg Capsule Take 25 mg by mouth every 6 hours as needed for Itching. For seasonal allergies ??? acetaminophen (Tylenol) 325 mg Tablet Take 2-3 tablets by mouth every 6 hours as needed for Pain. ??? losartan (COZAAR) 100 mg Tablet Take 100 mg by mouth daily. ??? atorvastatin (LIPITOR) 20 mg Tablet Take 20 mg by mouth daily. Currently not taking No current facility-administered medications on file prior to visit. 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 Wt Readings from Last 3 Encounters: 03/18/22 109.5 kg (241 lb 6.5 oz) 02/13/22 108.6 kg (239 lb 6.7 oz) 11/26/21 101.6 kg (224 lb) PE: Exam: ECOG PS: 0 General: NAD, pleasant, well-appearing [...] Conversant, normal mood and affect. Vitals: BP 156/88 (Patient Position: Sitting) Pulse 85 Temp 36.8 ??C (98.2 ??F) (Temporal) Resp 20 Ht 177.8 cm (5' 10) Wt 109.5 kg (241 lb 6.5 oz) SpO2 90% BMI 34.64 kg/m?? Lab results: 03/18/22 reviewed Pathology: 02/04/22 DIAGNOSIS A - Lung, left, core [...] (pT): ??pT3a ?Regional Lymph Nodes (pN): ??pN1 Imagin02/06/22 abdominal MRI: IMPRESSION Stable exam. Stable post [...] in the abdomen and pelvis. 10/20/21 CXR ([facility]): 10/16/21: IMPRESSION 1. 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 Treatment: -08/07/21 started adjuvant pembrolizumab; d/c'd after 1 dose due to transaminitis -02/26/22 cabozantinib started for lung metastasis (treatment break 03/04- for COVID) We reviewed his diagnosis in detail and [...] taper. Pt prefers to get labs at [facility]. We'll send orders and I'll ask our straw hat washer operator to f/u on results. Advised pt to [...] pains are likely primary from joint problem. #L LE DVT: continue Eliquis per PCP. 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 He continues monitoring and management with Dr. Pringle, scheduled for f/u visit today. Slight increase of ALT to 60 as of 03/18/22. Mr. Tenorio asked appropriate questions and verbalized good understanding of and agreement with the plan. I encouraged him to call anytime with questions or concerns and he agreed. Plan: - Continue Cabometyx 60 mg a day - Next visit in 4 weeks with CBc, cMP, TSH, freeT4 - intensify BP regimen with PCP - f/u genetic test - will see him back in 4 weeks, CMP in 2 weeks to follow up ALT Mr. Tenorio asked appropriate questions and verbalized good understanding of and agreement with the plan. I encouraged him to call anytime with questions or concerns and he agreed. Case seen and discussed with Dr. [place] Brar MD [facility] [place] [facility] Hematology Oncology Fellow Page [phone] * Albino Bartholomew MD - 03/18/2022 1:00 PM EST Oncology Attending Addendum I personally reviewed the history, examined the patient, reviewed relevant labs and viewed recent radiographic images. I directly participated in management decisions. My exam and assessment concur with . Please refer to his comprehensive note for details. Raymundo started coabometyx 02/26/22. Held it for 5 days while was diagnosed with COVID-19 infection. Restarted 10 days ago. Tolerates it reasonably well with mild fatigue and taste change. Mild elevation of ALT.5. CMP locally in 2 weeks. Continue Cabometyx 60 mg a day Plan: 1. CMP locally in 2 weeks 2. Continue Cabometyx 60 mg a day 3. Next visit in 4 weeks with blood work Albino Bartholomew MD Hematology/Oncology Section, [facility] Lottery Sales Clerkit compliance analyst, [facility] [employer] [phone] documented in this encounter Plan of Treatment Upcoming Encounters Date Type Department Care Team (Late st Contact Info) Description 02/16/2024 9:15 AM EDT Laboratory Appointment Lab at [facility] Hematology Oncology [address] [place], [place] [id number] 02/16/2024 10:20 AM EDT Hospital [place] [address] Mitali Griffiths APRN [facility] DR HEMATOLOGY [place] [address] 02/16/2024 1:30 PM EDT Office Visit Hematology and Oncology at [place] [phone] Albino Bartholomew MD [facility] DR HEMATOLOGY [place] [address] 04/17/2024 10:00 AM EST Office Visit Dermatology at [facility] [address] [place] [address] Oli Winter MD [address] [facility] [place] [place] [address] documented as of this encounter Visit Diagnoses Diagnosis Metastatic renal cell carcinoma to lung, unspecified laterality documented in this encounter Care Teams Heel Sorter Relationship Specialty Start Date End Date Juan Dempsey MD [address] [place] [address] PCP - General Emergency Medicine 08/20/21 documented as of this encounter
--- OUTSIDE RECORDS SUMMARY | 2024-02-03 16:55 | XMS_ITS | Encounter Summary ---
Author Organization [facility] Address [facility] [place] [address] Care Team Providers Care Ordnance Technician Name Role Phone Juan Dempsey MD Primary Care Provider [phone] Encounter Details Date Type Department Care Team (Late st Contact Info) Description 04/30/2022 External Results [place] [address] Ana Pringle MD [facility] [place] [address] Social History Tobacco Use Types Packs/Day Years [...] at [facility] [place] Oncology [address] [place] [address] 02/16/2024 10:20 AM EDT Hospital [place] [phone] Mitali Griffiths APRN [facility] [place] [address] 02/16/2024 1:30 PM EDT Office Visit Hematology [place] [phone] Albino Bartholomew MD [facility] [address] [place] [address] 04/17/2024 10:00 AM EST Office Visit Dermatology at [facility] [address] [place] [address] Oli Winter MD [address] [facility] [place] [address] documented as of this encounter Procedures Procedure Name Priority Date/Time Associated Diagnosis Comments EXTERNAL LAB CBC CMP THYROID RESULTS PANEL Routine 04/29/2022 documented in this encounter Results * CBC / CMP / Thyroid External Results (04/29/2022) White Blood Cell 6.03 Red Blood Cell 4.72 Hemoglobin 14.2 Hematocrit 40.6 Mean Cell Volume 86.0 Platelet 155 Sodium 134 Potassium 3.7 Chloride 99 Carbon Dioxide 28 Blood Urea Nitrogen 28 Creatinine 2.1 Est Glomerular Filtration Rate 33.87 Glucose 151 Calcium 9.0 Protein, Total 7.6 Albumin 3.7 Bilirubin, Total 0.7 Alkaline Phosphatase 167 Aspartate Aminotransferase 103 Alanine Aminotransferase 266 Historical Provider MD EXTERNAL LAB SUNITHA SERRANO documented in this encounter Visit Diagnoses Not on filedocumented in this encounter Care Teams Ordnance Technician Relationship Specialty Start Date End Date Juan Dempsey MD [address] [place] [address] PCP - General Emergency Medicine 08/20/21 documented as of this encounter
--- OUTSIDE RECORDS SUMMARY | 2024-02-03 16:55 | XMS_ITS | Encounter Summary ---
Author Organization [facility] Address [facility] [place] [address] Care Team Providers Care Stuffing Machine Operator Name Role Phone Juan Dempsey MD Primary Care Provider [phone] Encounter Details Date Type Department Care Team (Latest Contact Info) Description 04/15/2022 Travel Social History Tobacco Use Types Packs/Day [...] AM EDT Laboratory Appointment Lab at [facility] Hematology Oncology [address] [place] [address] 02/16/2024 10:20 AM EDT Hospital [place] [phone] Mitali Griffiths APRN [facility] [address] [place] [address] 02/16/2024 1:30 PM EDT Office Visit Hematology [place] [address] Albino Bartholomew MD [facility] DR [place] [address] 04/17/2024 10:00 AM EST Office Visit Dermatology at [facility] [address] [place] [address] Oli Winter MD [address] [facility] [place] [address] documented as of this encounter Visit Diagnoses Not on filedocumented in this encounter Care Teams Stuffing Machine Operator Relationship Specialty Start Date End Date Juan Dempsey MD [address] [place] [address] PCP - General Emergency Medicine 08/20/21 documented as of this encounter
--- OUTSIDE RECORDS SUMMARY | 2024-02-03 16:55 | XMS_ITS | Encounter Summary ---
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 04/11/2019 cabozantinib (Cabometyx) 60 mg tabletIndications:fatmata l cell carcinoma Take 1 tablet (60 mg) by mouth daily. Take on an empty stomach. Call clinic before starting medication. Indications: renal cell carcinoma 30 tablet 11 02/13/2022 04/29/2022 budesonide EC (Entocort EC) 3 mg Capsule, Delayed & Ext.Release Take 3 capsules by mouth every morning. 90 capsule 3 11/26/2021 07/26/2022 atorvastatin (LIPITOR) 20 mg Tablet Take 20 mg by mouth daily. Currently not taking 02/11/2018 03/19/2022 documented as of this encounter Plan of Treatment Upcoming Encounters Date Type Department Care Team (Late st Contact Info) Description 02/16/2024 9:15 AM EDT Laboratory Appointment Lab at [facility] [place] [address] [place] [address] 02/16/2024 10:20 AM EDT Hospital [place] [phone] Mitali Griffiths APRN [facility] [place] [address] 02/16/2024 1:30 PM EDT Office Visit Hematology [place] [phone] Albino Bartholomew MD [facility] [place] [address] 04/17/2024 10:00 AM EST Office Visit Dermatology at [facility] [address] [place] [address] Oli Winter MD [address] [place] [address] [address] Scheduled Orders Name Type Priority Associated Diagnoses Orde r Schedule Comprehensive metabolic panel (non-fasting) Lab Routine Renal cell carcinoma, unspecified laterality 1 Occurrences starting 03/18/2022 until 03/18/2022 CBC (with Diff) Lab Routine Renal cell carcinoma, unspecified laterality 1 Occurrences starting 03/18/2022 until 03/18/2022 Hepatic Function Panel Lab Routine Autoimmune hepatitis 1 Occurrences starting 03/18/2022 until 03/18/2022 documented as of this encounter Procedures Procedure Name Priority Date/Time Associated Diagnosis Comments RESEARCH VENIPUNCTURE Routine 03/18/2022 11:44 AM EST Family history of melanoma Renal cell carcinoma of left kidney Family history of pancreatic cancer Family history of colon cancer Family history of malignant neoplasm of breast BILIRUBIN, DIRECT Routine 03/18/2022 11: 44 AM EST HEMOGRAM Routine 03/18/2022 11:44 AM EST Metastatic renal cell carcinoma to lung, unspecified laterality DIFFERENTIAL, AUTOMATED Routine 03/18/2022 11:44 AM EST Metastatic renal cell carcinoma to lung, unspecified laterality HC CBC,PLT & AUTO DIFF Routine 11:44 AM EST Metastatic renal cell carcinoma to lung, unspecified laterality HC THYROID STIMULATING HORMONE, SERUM Routine 03/18/2022 11:44 AM EST Metastatic renal cell carcinoma to lung, unspecified laterality Abnormal thyroid function test HC VENIPUNCTURE Routine 03/18/2022 11:44 AM EST Metastatic renal cell carcinoma to lung, unspecified laterality Abnormal thyroid function test COMPREHENSIVE METABOLIC PANEL Routine 03/18/2022 11:44 AM EST Metastatic renal cell carcinoma to lung, unspecified laterality documented in this encounter Results * Bilirubin, Direct (03/18/2022 11:44 AM EST) Bilirubin, Direct 0.1 0.0 - 0.3 mg/dL [facility] Blood 03/18/2022 11:4 4 AM EST 03/18/2022 11:59 AM EST Narrative Resulting Agency Comment Spec In Lab Ana Pringle MD CHEMISTRY ORDERABLES [facility] [place] [address] * (ABNORMAL) Differential, Automated (03/18/2022 11:44 AM EST) Neutrophil % 77.6 % [facility] Neutrophil Absolute 9.16(H) 1.70 - 6.10 x10(3)/mc L [facility] Lymph % 14.4 % [facility] Lymphocytes Abs 1.7 0.9 - 3.2 x10(3)/[facility] Monocyte % 4.7 % [facility] Monocyte Abs 0.6 0.3 - 0.9 x10(3)/[facility] Eos % 1.9 % [facility] Eosinophils Abs 0.2 0.0 - 0.4 x10(3)/[facility] Basophil % 1.1 % [facility] Baso Absolute 0.1 0.0 - 0.1 x10(3)/[facility] Immature Gran % 0.30 % [facility] Comment: Immature granulocytes(IG's)percentage and absolute count will include metamyelocytes, myelocytes, and promyelocytes. Blood smears from CBCs yielding IG's will be scanned manually for concordance. If this scan disagrees with the automated IG or if promyelocytes are noted, a manual differential will be performed. Immature Gran Absolute 0.03 0.00 - 0.04 x10(3)/[facility] Blood 03/18/2022 11:4 4 AM EST 03/18/2022 11:59 AM EST Narrative Resulting Agency Comment Spec In Lab Albino Bartholomew MD HEMATOLOGY ORDERABLE S Performing Organization Address City/State/[facility] Co de Phone Number [facility] [place] [address] * (ABNORMAL) Hemogram (03/18/2022 11:44 AM EST) White Blood Cell 11.8(H) 4.0 - 9.5 x10(3)/[facility] Red Blood Cell 5.26 4.58 - 5.54 x10(6)/[facility] Hemoglobin 15.1 13.7 - 16.5 g/dL [facility] Hematocrit 44.2 40.5 - 48.5 % [facility] Mean Cell Volume 84.0 82.9 - 93.1 fL [facility] Mean Cell Hemoglobin 28.7 27.5 - 32.1 pg [facility] Mean Cell Hemoglobin Concentration 34.2 32.0 - 35.7 g/dL [facility] Platelet 203 145 - 357 x10(3)/mc L [facility] RDW Standard Deviation 43.1 36.0 - 45.0 fL [facility] RDW coefficient of variation 14.3(H) 11.4 - 13.8 % [facility] Mean Platelet Volume 9.1 7.6 - 12.9 [facility] NRBC% auto 0.0 % [facility] NRBC Absolute 0.000 0.000 - 0.000 x10(3)/mc L [facility] Blood 03/18/2022 11:4 4 AM EST 03/18/2022 11:59 AM EST Narrative Resulting Agency Comment Spec In Lab Albino Bartholomew MD HEMATOLOGY ORDERABLE S Performing Organization Address City/[facility] Co de Phone Number [facility] [place] [address] * Research Venipuncture (03/18/2022 11:44 AM EST) Pathologist [facility] Research Venipuncture Drawn [facility] Blood 03/18/2022 11:4 4 AM EST 03/18/2022 11:59 AM EST Narrative Resulting Agency Comment Spec In Lab Odell Ruiz MD CHEMISTRY ORDERABLES Performing Organization Address [facility] Co de Phone Number [facility] [place] [address] * (ABNORMAL) Comprehensive metabolic panel (non-fasting) (03/18/2022 11:44 AM EST) [facility] Glucose 112 65 - 199 mg/dL [facility] Comment:Diabetes: >=200 mg/d L plus symptoms Blood Urea Nitrogen 19 10 - 20 mg/dL [facility] Creatinine 1.46 0.80 - 1.50 mg/dL [facility] Sodium 143 135 - 145 mmol/L [facility] Potassium 3.5 3.5 - 5.0 mmol/L [facility] Comment: Please note: ??Patients with WBC >100,000 may have falsely elevated Potassium levels. ??For accurate Potassium quantification in these patients send serum separator tube (gold top) for subsequent determinations. ??Contact the Clinical Chemistry Laboratory if there are any questions. Chloride 104 98 - 107 mmol/L [facility] Carbon Dioxide 32(H) 22 - 31 mmol/L [facility] Anion Gap 7 5 - 15 mmol/L [facility] Calcium 9.4 8.5 - 10.5 mg/dL [facility] Protein, Total 6.9 6.1 - 8.0 g/dL [facility] Albumin 4.0 3.2 - 5.2 g/dL [facility] Aspartate Aminotransferase 29 0 - 39 unit/L [facility] Alanine Aminotransferase 60(H) 0 - 55 unit/L [facility] Alkaline Phosphatase 130 40 - 130 unit/L [facility] Bilirubin, Total 0.3 0.2 - 1.3 mg/dL [facility] Est Glomerular Filtration Rate 52(L) >=60 mL/min/1. 73 m?? [facility] Comment: This patient's estimated GFR [...] and symptoms in addition to eGFR. Blood 03/18/2022 11:4 4 AM EST 03/18/2022 11:59 AM EST Narrative Resulting Agency Comment Spec In Lab Albino Bartholomew MD CHEMISTRY ORDERABLES Performing Organization Address City/[facility]/ZIP Co de Phone Number [facility] [place] [address] * (ABNORMAL) TSH (03/18/2022 11:44 AM EST) Thyroid Stimulating Hormone 6.08(H) 0.27 - 4.20 mcIU/mL [facility] Comment: Reference Interval (mcIU/mL): Females: ??First Trimester: 0.23-3.88 ??Second Trimester: 0.22-3.90 ??Third Trimester: 0.44-4.66 Blood 03/18/2022 11:4 4 AM EST 03/18/2022 11:59 AM EST Narrative Resulting Agency Comment Spec In Lab Albino Bartholomew MD CHEMISTRY ORDERABLES Performing Organization Address [facility] Co de Phone Number [facility] [place] [address] * T4, free (03/18/2022 11:44 AM EST) Free T4 1.38 0.93 - 1.70 ng/dL [facility] Comment: Reference Interval (ng/dL): Females: ??First Trimester: 0.97-1.68 ??Second Trimester: 0.77-1.51 ??Third Trimester: 0.77-1.49 Blood 03/18/2022 11:4 4 AM EST 03/18/2022 11:59 AM EST Narrative Resulting Agency Comment Spec In Lab Albino Bartholomew MD CHEMISTRY ORDERABLES Performing Organization Address City/[facility]/ZIP Co de Phone Number [facility] [place] [address] documented in this encounter Visit Diagnoses Diagnosis Metastatic renal cell carcinoma to lung, unspecified laterality Abnormal thyroid function test Nonspecific abnormal results of thyroid function study Renal cell carcinoma, unspecified laterality Drug-induced liver injury Autoimmune hepatitis Family history of melanoma Family history of other specified malignant neoplasm Family history of pancreatic cancer Family history of malignant neoplasm of gastrointestinal tract Family history of colon cancer Family history of malignant neoplasm of gastrointestinal tract Family history of malignant neoplasm of breast documented in this encounter Care Teams Unindentured Apprentice Relationship Specialty Start Date End Date Juan Dempsey MD [address] [place] [id number] PCP - General Emergency Medicine 08/20/21 documented as of this encounter
--- OUTSIDE RECORDS SUMMARY | 2024-02-03 16:55 | XMS_ITS | Encounter Summary ---
Author Organization [facility] Address [facility] [place] [address] Care Team Providers Care Rotary Furnace Operator Name Role Phone Juan Dempsey MD Primary Care Provider Encounter Details Date Type Department Care Team (Latest Contact Info) Description 05/13/2022 Travel Social History Tobacco Use Types Packs/Day [...] 9:15 AM EDT Laboratory Appointment Lab at [facility] Hematology Oncology [address] [place] [address] 02/16/2024 10:20 AM EDT Hospital [place] [phone] Mitali Griffiths APRN [facility] [address] HEMATOLOGY [place] [address] 02/16/2024 1:30 PM EDT Office Visit Hematology [place] [address] Albino Bartholomew MD [facility] [address] HEMATOLOGY [place] [address] 04/17/2024 10:00 AM EST Office Visit Dermatology at [facility] [address] [place] [address] Oli Winter MD [address] [facility] [address] documented as of this encounter Visit Diagnoses Not on filedocumented in this encounter Care Teams Rotary Furnace Operator Relationship Specialty Start Date End Date Juan Dempsey MD [address] [place] [address] PCP - General Emergency Medicine 08/20/21 documented as of this encounter
--- OUTSIDE RECORDS SUMMARY | 2024-02-03 16:55 | XMS_ITS | Encounter Summary ---
Author Organization [facility] Address [facility] [place] [address] Care Team Providers Care Protective Services Case Worker Name Role Phone Juan Dempsey MD Primary Care Provider [phone] Encounter Details Date Type Department Care Team (Late st Contact Info) Description 05/11/2022 Telephone [place] [address] Tamiko Clark Social History Tobacco Use Types Packs/Day Years [...] encounter Miscellaneous Notes * Telephone Encounter - Tamiko Clark - 05/11/2022 9:45 AM EST Called pt and LVM pt needs FUV w/ next avail documented in this encounter Plan of Treatment Upcoming Encounters Date Type Department Care Team (Late st Contact Info) Description 02/16/2024 9:15 AM EDT Laboratory Appointment Lab at [facility] Hematology Oncology [address] [place] [address] 02/16/2024 10:20 AM EDT Hospital [place] [phone] Mitali Griffiths APRN [facility] [address] [place] [address] 02/16/2024 1:30 PM EDT Office Visit Hematology [place] [address] Albino Bartholomew MD [facility] [place] [address] 04/17/2024 10:00 AM EST Office Visit Dermatology at [facility] [address] [place] [address] Oli Winter MD [address] [facility] [place] [address] documented as of this encounter Visit Diagnoses Not on filedocumented in this encounter Care Teams Protective Services Case Worker Relationship Specialty Start Date End Date Juan Dempsey MD [address] [place] [address] PCP - General Emergency Medicine 08/20/21 documented as of this encounter
--- OUTSIDE RECORDS SUMMARY | 2024-02-03 16:55 | XMS_ITS | Encounter Summary ---
Author Organization [facility] Address [facility] [place] [address] Care Team Providers Care Beekeeper Farmer Name Role Phone Juan Dempsey MD Primary Care Provider [phone] Reason for Visit * Reason Comments Follow-up Encounter Details Date Type Department Care Team (Late st Contact Info) Description 04/15/2022 3:00 PM EST Office Visit Hematology [place] [address] Albino Bartholomew MD [facility] [address] [place] [address] Kyle Donohue PA [facility] [address] [place] [address] Metastatic renal cell carcinoma to lung, unspecified laterality; Abnormal thyroid function test; Drug-induced liver injury; High risk medication use Social History Tobacco [...] Sign Reading Time Taken Comments Blood Pressure 132/80 04/15/2022 2:56 PM EST Pulse 70 04/15/2022 2:56 PM EST Temperature 36.4 ??C (97.5 ??F) 04/15/2022 2:56 PM ES T Respiratory Rate 20 04/15/2022 2:56 PM EST Oxygen Saturation 96% 04/15/2022 2:56 PM EST Inhaled Oxygen Concentration - - Weight 104.5 kg (230 lb 6.1 oz) 04/15/2022 2:56 PM EST Height 108.2 cm (3' 6.6) 04/15/2022 2:56 PM EST Body Mass Index 89.26 04/15/2022 2:56 PM EST documented in this encounter Progress Notes * Kyle Donohue PA - 04/15/2022 3:00 PM EST Images from the original [...] Interval History: Raymundo is in clinic for follow up on kidney cancer and is accompanied by his .He is currently taking Cabometyx 60 mg once daily as directed. The is tolerating therapy so far - Ollie energy level is pretty much, No interval change, easily tired but. Still active maintaing ADL. - Has a good appetite however metalic taste in mouth and occasional dry mouth inhibits him from eating as much as he would like. - Skin changes: More Pimple on face- getting better, dry skin - Still taking k+. No diarrhea, Ocassional constipated, not as regular, having BM once daily, - Ongoing feeling off balance in my head since start Cabometyx. Denies dizzy, syncope, headache, no visual or other focal deficits -- recent Brain MRI KIMBER. He reported to the ER with same complaints and was given meclizine which helped - B/P better controlled PCP added chlorthalidone (Hygroten) 25 mg -ROS otherwise negative. Patient Active Problem List Diagnosis Code ??? Renal mass N28.89 ??? Renal cell carcinoma C64.9 ??? Medication management Z79.899 PMH, PSH, and current medications reviewed, as documented in the electronic medical record. Current Outpatient Medications on File Prior to Visit Medication Sig Dispense Refill ??? potassium chloride SA (Klor-con) 10 mEq Tab Sust.Rel. Particle/Crystal Take 1 tablet by mouth 2times daily. 60 tablet 1 ??? meclizine (Antivert) 25 mg Tablet Take [...] capsule 3 ??? Eliquis 5 mg Tablet Take 5 mg by mouth 2 times daily. ??? amLODIPine (Norvasc) 10 mg Tablet TAKE [...] by mouth daily. No current facility-administered medications on file prior to visit. 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 Wt Readings from Last 3 Encounters: 03/18/22 [...] vitals taken for this visit. Lab results: 02/04/22 reviewed Pathology: 02/04/22 DIAGNOSIS A - Lung, [...] d/c'd after 1 dose due to transaminitis We reviewed his diagnosis in detail and [...] Pt prefers to get labs at [facility]. We'll send orders and I'll ask our medication assistant to f/u on results. Advised pt to [...] with Cabometyx. Informed verbal consent was obtained. 04/15/22: On Cabometyx is 60 mg once daily for approximately 6 weeks. Tolerating therapy so far with transaminitis: AST 50, ALT 92 approaching 2x the upper limit normal. Clinically he is stable. Fatigue, appetite, B/P stable.No focal deficits. We will continue Cabometyx 60 mg daily repeat LFT in 2 weeks. continues monitoring and management with Dr. Pringle, #L LE DVT: continue Eliquis per PCP. 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 He continues monitoring and management with Dr. Pringle, scheduled for f/u visit today. #Elevated TSH, T4 WNL- Will continue to monitor Mr. Tenorio asked appropriate questions and verbalized good understanding of and agreement with the plan. I encouraged him to call anytime with questions or concerns and he agreed. Plan: - Continue Cabometyx 60 mg a day - Repeat labs locally in 2 weeks - Next visit in 4 weeks with CBc, cMP, TSH, freeT4 - F/u with Dr. Winter Dermatology -Skin concerns - F/u with PCP for general health concrens Mr. Tenorio asked appropriate questions and verbalized good understanding of and agreement with the plan. I encouraged him to call anytime with questions or concerns and he agreed. DINO Vizcar[facility] Oncology documented in this encounter Plan of Treatment Upcoming Encounters Date Type Department Care Team (Late st Contact Info) Description 02/16/2024 9:15 AM EDT Laboratory Appointment Lab at [facility] Hematology Oncology [address] [place] [address] 02/16/2024 10:20 AM EDT Hospital [place] [address] Mitali Griffiths APRN [facility] [address] HEMAT[place] [address] 02/16/2024 1:30 PM EDT Office Visit Hematology [place] [address] Albino Bartholomew MD [facility] [address] H[place]AT[place] [address] 04/17/2024 10:00 AM EST Office Visit Dermatology at [facility] [address] [place] [address] Oli Winter MD [address] [facility] [place] [address] documented as of this encounter Visit Diagnoses Diagnosis Metastatic renal cell carcinoma to lung, unspecified laterality Abnormal thyroid function test Nonspecific abnormal results of thyroid function study Drug-induced liver injury High risk medication use Encounter for long-term (current) use of other medications documented in this encounter Care Teams Beekeeper Farmer Relationship Specialty Start Date End Date Juan Dempsey MD [address] [place] [address] PCP - General Emergency Medicine 08/20/21 documented as of this encounter
--- OUTSIDE RECORDS SUMMARY | 2024-02-03 16:55 | XMS_ITS | Encounter Summary ---
Author Organization [facility] Address [facility] [place] [address] Care Team Providers Care Manufacturing Helper Name Role Phone Juan Dempsey MD Primary Care Provider [phone] Encounter Details Date Type Department Care Team (Latest Contact Info) Description 03/18/2022 Travel Social History Tobacco Use Types Packs/Day [...] [facility] Hematology Oncology [address] [place] [address] 02/16/2024 10:20 AM EDT Hospital [place] [phone] Mitali Griffiths APRN [facility] [place] [address] 02/16/2024 1:30 PM EDT Office Visit Hematology [place] [address] Albino Bartholomew MD [facility] [address] [place] [address] 04/17/2024 10:00 AM EST Office Visit Dermatology at [facility] [address] [place] [address] Oli Winter MD [address] [facility] [place] [address] documented as of this encounter Visit Diagnoses Not on filedocumented in this encounter Care Teams Manufacturing Helper Relationship Specialty Start Date End Date Juan Dempsey MD [address] [place] [address] PCP - General Emergency Medicine 08/20/21 documented as of this encounter
--- OUTSIDE RECORDS SUMMARY | 2024-02-03 16:55 | XMS_ITS | Encounter Summary ---
Author Organization [facility] Address [facility] [place] [address] Care Team Providers Care Hydrogenation Operator Name Role Phone Juan Dempsey MD Primary Care Provider [phone] Encounter Details Date Type Department Care Team (Latest Contact Info) Description 04/08/2022 Travel Social History Tobacco Use Types Packs/Day [...] AM EDT Laboratory Appointment Lab [place] [facility] [place] [address] [place] [address] 02/16/2024 10:20 AM EDT [place] [phone] Mitali Griffiths APRN [facility] DR HEMATOLOGY [place] [address] 02/16/2024 1:30 PM EDT Office Visit [place] [address] Albino Bartholomew MD [facility] DR HEMATOLOGY [place] [address] 04/17/2024 10:00 AM EST Office Visit Dermatology at [facility] [address] [place] [address] Oli Winter MD [address] [facility] [address] documented as of this encounter Visit Diagnoses Not on filedocumented in this encounter Care Teams Hydrogenation Operator Relationship Specialty Start Date End Date Juan Dempsey MD [address] [place] [address] PCP - General Emergency Medicine 08/20/21 documented as of this encounter
--- OUTSIDE RECORDS SUMMARY | 2024-02-03 16:55 | XMS_ITS | Encounter Summary ---
Author Organization [facility] Address [facility] [place] [address] Care Team Providers Care Manager Utilization Review Name Role Phone Juan Dempsey MD Primary Care Provider [phone] Reason for Visit * Reason Comments Medication Refill Encounter Details Date Type Department Care Team (Late st Contact Info) Description 05/26/2022 Specialty [place] [phone] Sharda Lee, [facility] Social History Tobacco Use [...] this encounter Progress Notes * Sharda Lee RPH - 05/26/2022 2:05 PM EST Clinical Management Plan: Refill Specialty Pharmacy Consultation; Sharda Lee [facility] Comprehensive Medication Management (CMM) [...] ??? Peanut Medication Reconciliation Discrepancies (compared to [facility] med list) No Specialty Pharmacy Refill Questionnaire Refill Questionnaire 05/26/2022 What is the name of the specialty medication you are refilling? Cabometyx Are you taking any new medications? No Please explain - Any new medical condition? No Any new allergies? No Any new side effects that are bothersome? No Please explain - What date will you need this fill by? 06/01/2022 Adherence: Any missed doses? No Patient understands no changes to current drug regimen were made. Sharda Lee RPH 05/26/22 2:07 PM documented in this encounter Plan of Treatment Upcoming Encounters Date Type Department Care Team (Late st Contact Info) Description 02/16/2024 9:15 AM EDT Laboratory Appointment Lab at [facility] [place]ematology Oncology [address] [place] [address] 02/16/2024 10:20 AM EDT Hospital Encounter CT Scan at [place] [phone] Mitali Griffiths APRN [facility] DR HEMATOLOGY [place] [address] 02/16/2024 1:30 PM EDT Office Visit [place] [phone] Albino Bartholomew MD [facility] DR HEMATOLOGY [place] [address] 04/17/2024 10:00 AM EST Office Visit Dermatology at [facility] [address] [place] [address] Oli Winter MD [address] [facility] [place] [address] documented as of this encounter Visit Diagnoses Not on filedocumented in this encounter Care Teams Manager Utilization Review Relationship Specialty Start Date End Date Juan Dempsey MD [address] [place] [address] PCP - General Emergency Medicine 08/20/21 documented as of this encounter
--- OUTSIDE RECORDS SUMMARY | 2024-02-03 16:55 | XMS_ITS | Encounter Summary ---
Author Organization [facility] Address [facility] [place] [address] Care Team Providers Care Motorboat Mechanic Inboard/Outboard Name Role Phone Juan Dempsey MD Primary Care Provider [phone] Encounter Details Date Type Department Care Team (Late st Contact Info) Description 04/30/2022 [place] [address] Ana Pringle MD [facility] [place] [address] Social History Tobacco Use Types Packs/Day Years [...] [facility] Hematology Oncology [address] [place] [address] 02/16/2024 10:20 AM EDT Hospital [place] [address] Mitali Griffiths APRN [facility] [address] [place] [address] 02/16/2024 1:30 PM EDT Office Visit [place]ematology [place] [address] Albino Bartholomew MD [facility] [address] [place] [address] 04/17/2024 10:00 AM EST Office Visit Dermatology at [facility] [address] [place] [address] Oli Winter MD [address] [facility] [place] [address] documented as of this encounter Visit Diagnoses Not on filedocumented in this encounter Care Teams Motorboat Mechanic Inboard/Outboard Relationship Specialty Start Date End Date Juan Dempsey MD [address] [place] [address] PCP - General Emergency Medicine 08/20/21 documented as of this encounter
--- OUTSIDE RECORDS SUMMARY | 2024-02-03 16:55 | XMS_ITS | Encounter Summary ---
Author Organization [facility] Address [facility] [place] [address] Care Team Providers Care Call Centre Supervisor Name Role Phone Juan Dempsey MD Primary Care Provider [phone] Encounter Details Date Type Department Care Team (Late st Contact Info) Description 04/02/2022 Telephone Hematology [place] [address] Daxa Arriola RN Social History [...] Telephone Encounter - Daxa Arriola RN - 04/02/2022 2:30 PM EST Message received from provider: Nursing: check CMP for liver enzymes at [facility] in 2 weeks Next visit in 4 weeks with blood work at Labs entered and forwarded to provider. Message received from Albino Bartholomew MD: Daxa, Alt is very slightly up, not high enough ??to hold cabometyx. Kidney function is worse and mild hypokalemia. Does he have diarrhea or started any new meds besides cabometyx. I sent potassium prescription to local pharmacy. Please let him know. Thank you, Albino ?? Message sent to pt via [facility]. Gilson Tobar RN to follow-up on 04/07. documented in this encounter Plan of Treatment Upcoming Encounters Date Type Department Care Team (Late st Contact Info) Description 02/16/2024 9:15 AM EDT Laboratory Appointment Lab at [facility] [place] On[place] [address] [place] [address] 02/16/2024 10:20 AM EDT Hospital [place] [address] Mitali Griffiths, ORDNANCE OFFICER [facility] HEMATOLOGY [place] [address] 02/16/2024 1:30 PM EDT Office Visit Hematology and Oncology at [facility] [address] [place] [address] Albino Bartholomew MD [facility] HEMATOLOGY [place] [address] 04/17/2024 10:00 AM EST Office Visit Dermatology at [facility] [address] [place] [address] Oli Winter MD [address] [facility] [place] [address] documented as of this encounter Procedures Procedure Name Priority Date/Time Associated Diagnosis Comments CBC (WITH DIFF) Routine 04/01/2022 2:14 PM EST COMPREHENSIVE METABOLIC PANEL Routine 04/01/2022 2:14 PM EST documented in this encounter Results * (ABNORMAL) CBC (with Diff) (04/01/2022 2:14 PM EST) White Blood Cell 10.39 4.4 - 10.8 [facility] Red Blood Cell 5.25 4.36 - [address].78 [facility] Hemoglobin 15.1 13.5 - 17.5 [facility] Hematocrit 44.4 40.0 - 50.0 [facility] Platelet 199 130 - 400 MANOJ RN [facility] Neutrophil Absolute (ANC) - Automated 7.43(A) 1.2 - 6.7 [facility] Blood 04/01/2022 2:14 PM EST Historical Provider HEMATOLOGY ORDERA BLES [facility] [address] [phone] * (ABNORMAL) Comprehensive metabolic panel (non-fasting) (04/01/2022 2:14 PM EST) Glucose 122(H) 74 - 106 MANOJ ZEPEDA [facility] Blood Urea Nitrogen 25(H) 7 - 18 [facility] Creatinine 1. 8(H) 0.70 - 1.30 [facility] Sodium 135(L) 136 - 145 [facility] Potassium 3.1(L) 3.5 - 5.1 [facility] Chloride 98 98 - 107 MANOJ ZEPEDA [facility] Carbon Dioxide 32 21 - 32 [facility] Calcium 8.8 8.5 - 10.1 [facility] Protein, Total 7.7 6.4 - 8.2 [facility] Albumin 3.5 3.4 - [address] [facility] Bilirubin, Total 0.6 0.2 - [address].0 [facility] Alkaline Phosphatase 162(H) 46 - 116 [facility] Aspartate Aminotransferase 36 15 - 37 [facility] Alanine Aminotransferase 68(H) 16 - 63 [facility] Blood 04/01/2022 2:14 PM EST Historical Provider CHEMISTRY ORDERAB LES Performing Organization Address City/State/[facility] Co de Phone Number [address] [phone] documented in this encounter Visit Diagnoses Not on filedocumented in this encounter Care Teams Call Centre Supervisor Relationship Specialty Start Date End Date Juan Dempsey MD [address] [place] [address] PCP - General Emergency Medicine 08/20/21 documented as of this encounter
--- OUTSIDE RECORDS SUMMARY | 2024-02-03 16:55 | XMS_ITS | Encounter Summary ---
Author Organization [facility] Address [facility] [place] [address] Care Team Providers Care Shop Tailor Apprentice Name Role Phone Juan Dempsey MD Primary Care Provider [phone] Reason for Visit * Reason Onset Date Comments Results 04/01/2022 Encounter Details Date Type Department Care Team (Late st Contact Info) Description 04/01/2022 Telephone Hematology [place] [address] Lamont Lewis V, [facility] Hematology/[place] [address] Results Social History Tobacco Use Types Packs/Day Years [...] encounter Miscellaneous Notes * Telephone Encounter - Lamont Lewis V [facility] - 04/01/2022 11:28 AM EST This test result was discussed with the patient by phone. A copy of the test results have been scanned in the medical record and sent to Cristofer. A summary of the results is provided below. Please be advised that [place] law requires that all health care workers respect the confidentiality of this information and not pass it along to other health care providers, insurance companies, or individuals without the written permission of the patient. The [facility]amil[facility] Cancer [facility] welcomes any questions about these matters. Our phone number is: [phone]. On 02/20/2022 Cristofer was seen for genetic counseling and subsequently underwent genetic testing for a hereditary predisposition to cancers in eight major organ systems including breast, gynecologic, gastrointestinal, endocrine, genitourinary, skin, brain/nervous system, sarcoma and hematologic. Following are the results of this test. Result: [facility]'s Multi-Cancer Panel showed no mutation was detected. This means that Cristofer does not carry a mutation in the genes detectable by this test. The following 84 genes were evaluated for sequence changes and exonic deletions/duplications: AIP, ALK, APC, ARUNA, AXIN2, BAP1, BARD1, BLM, BMPR1A, BRCA1, BRCA2, BRIP1, CASR, CDC73, CDH1, CDK4, CDKN1B, CDKN1C, CDKN2A (p14ARF), CDKN2A ([id number]), CEBPA,CHEK2, CTNNA1, DICER1, DIS3L2, EGFR, EPCAM (Deletion/duplication testing only), FH, FLCN, GATA2, GPC3, GREM1 (Promoter region deletion/duplication testing only), HOXB13, HRAS, KIT, MAX, MEN1, MET, MITF, (c.952G>A,P.Qse962Oqx variant only), MLH1, MSH2, MSH3, MSH6, MUTYH, NBN, NF1, NF2, NTHL1, PALB2, PDGFRA, PHOX2B, PMS2, POLD1, POLE, POT1, ZCLCJ7P, PTCH1, PTEN, RAD50, RAD51C, RAD51D, RB1, RECQL4, RET, RUNX1, SDHA, SDHAF2, SDHB, SDHC, SDHD, SMAD4, SMARCA4, SMARCB1, SMARCE1, STK11, SUFU, TERC, TERT, NVAU496, TP53, TSC1, TSC2, VHL, WRN, and WT1. A variant of uncertain significance (VUS) was detected in the FLCN gene, specifically c.802C>T (p.Wbh549Qus). Interpretation: This test did not identify an underlying genetic cause for the personal history of kidney cancer orfamily history of breast, pancreatic, skin, colon, and other cancers. Possible explanations for this negative test result include: ?? Lukes cancer and the cancer in his family may be due to non genetic, environmental causes. ?? There could be a mutation in Cristofer's family that Cristofer did not inherit. ?? Individuals with a personal history of pancreatic cancer should consider testing, such as Cristofer's paternal cousin. For Cristofer's more immediate family, his nieces and nephews could consider genetic counseling and testing given the family history of pancreatic cancer in Cristofer's brother and breast cancer in his mother. ?? Cristofer's sister has already completed panel genetic testing and may not need additional testing at this time. She could review her prior testing with her genetic counselor or other ordering provider. ?? There could be mutations in other cancer genes not included in this test, or in genes yet to be discovered. ?? There is a very small chance that a pathogenic variant/mutation could be missed due to limitations in the testing. Additional genetic testing for Cristofer is not recommended at this time. It is unclear at this time whether the FLCN VUS identified in Cristofer is a cancer- associated mutationor a benign change in the gene with no increased cancer risks. [employer] is continually collecting and analyzing their data, in an effort to reclassify these variants as either cancer-causing mutationsor benign changes. It is important to remember that a vast majority of variants of uncertain significance are normal, benign changes in the gene. Per [employer], this FLCN variant is also classified as a VUS by [employer] and [employer]. We will be contacted by the laboratory, in the future, if a reclassification is made and we would then notify Cristofer. It is important that Cristofer's phone number and mailing address stay updated in the [facility] system, in order for us to reach him in the future, should an amended report be issued. Family members should NOT be tested for the variant of uncertain significance identified in Cristofer in order to find out their own cancer risks. Screening Recommendations Based on genetic test results and personal and/or family history, we recommend: Prostate cancer screening ?? Consideration of PSA and/or JT screening, as recommended by Cristofer's primary care provider. Colon cancer screening ?? Routine colorectal cancer screening starting by age 45-50 is important for everyone, regardless of genetic predisposition. ?? Periodic colonoscopy screening as recommended by Cristofer's arboreal scientist, taking family history of colon cancer into account. Skin cancer screening ?? Skin cancer screening and sun protection are important for everyone, regardless of genetic predisposition. ?? Consideration of routine dermatologic/skin exams, as recommended by Cristofer's primary care provider or striper machine. documented in this encounter Plan of Treatment Upcoming Encounters Date Type Department Care Team (Late st Contact Info) Description 02/16/2024 9:15 AM EDT Laboratory Appointment Lab at [facility] Hematology Oncology [address] [place] [address] 02/16/2024 10:20 AM EDT Hospital [place] [address] Mitali Griffiths APRN [facility] [place] [address] 02/16/2024 1:30 PM EDT Office Visit Hematology [place] [address] Albino Bartholomew MD [facility] [place] [address] 04/17/2024 10:00 AM EST Office Visit Dermatology at [facility] [address] [place] [address] Oli Winter MD [address] [facility] [place] [address] documented as of this encounter Visit Diagnoses Not on filedocumented in this encounter Care Teams Shop Tailor Apprentice Relationship Specialty Start Date End Date Juan Dempsey MD [address] [place] [address] PCP - General Emergency Medicine 08/20/21 documented as of this encounter
--- OUTSIDE RECORDS SUMMARY | 2024-02-03 16:55 | XMS_ITS | Encounter Summary ---
Author Organization [facility] Address [facility] [place] [address] Care Team Providers Care Carpenter Railcar Name Role Phone Juan Dempsey MD Primary Care Provider [phone] Encounter Details Date Type Department Care Team (Late st Contact Info) Description 04/23/2022 [place] [address] Ana Pringle MD [facility] [place] [address] Social History Tobacco Use Types Packs/Day Years [...] [facility] [place] [address] [place] [address] 02/16/2024 10:20 AM EDT Hospital [place] [address] Mitali Griffiths APRN [facility] DR [place] [address] 02/16/2024 1:30 PM EDT Office Visit Hematology [place] [address] Albino Bartholomew MD [facility] DR [place] [address] 04/17/2024 10:00 AM EST Office Visit Dermatology at [facility] [address] [place] [address] Oli Winter MD [address] [facility] [place] [address] documented as of this encounter Visit Diagnoses Not on filedocumented in this encounter Care Teams Carpenter Railcar Relationship Specialty Start Date End Date Juan Dempsey MD [address] [place] [address] PCP - General Emergency Medicine 08/20/21 documented as of this encounter
--- OUTSIDE RECORDS SUMMARY | 2024-02-03 16:55 | XMS_ITS | Encounter Summary ---
Author Organization [facility] Address [facility] [place] [address] Care Team Providers Care Remotely Piloted Vehicle Controller Name Role Phone Juan Dempsey MD Primary Care Provider [phone] Reason for Visit * Reason Comments Specialty Pharmacy Review Cabometyx 40mg tablet Encounter Details Date Type Department Care Team (Late st Contact Info) Description 05/20/2022 Specialty [place] [address] Kelin Chong, [facility] Social History Tobacco Use Types Packs/Day Years [...] encounter Progress Notes * Kelin Chong - 05/20/2022 11:59 PM EST The [facility] has completed a benefits investigation for Cristofer Tenorio to review their eligibility to fill at [facility]. Per patient's medication list they are prescribedCabometyx 40mg tablet and the medication is able to be filled at the [facility]. The patient is currently filling the medication through Specialty Pharmacy with a $0 copay. PA approved until 2025 documented in this encounter Plan of Treatment Upcoming Encounters Date Type Department Care Team (Late st Contact Info) Description 02/16/2024 9:15 AM EDT Laboratory Appointment Lab at [facility] Hematology Oncology [address] [place] [address] 02/16/2024 10:20 AM EDT Hospital [place] [address] Mitali Griffiths APRN [facility] DR [place]EMATOLOGY [place] [address] 02/16/2024 1:30 PM EDT Office Visit Hematology [place] [address] Albino Bartholomew MD [facility] [address] HEMATOLOGY [place] [address] 04/17/2024 10:00 AM EST Office Visit Dermatology at [facility] [address] [place] [address] Oli Winter MD [address] [facility] [place] [place] [address] documented as of this encounter Visit Diagnoses Not on filedocumented in this encounter Care Teams Remotely Piloted Vehicle Controller Relationship Specialty Start Date End Date Juan Dempsey MD [address] [place] [address] PCP - General Emergency Medicine 08/20/21 documented as of this encounter
--- OUTSIDE RECORDS SUMMARY | 2024-02-03 16:55 | XMS_ITS | Encounter Summary ---
Author Organization [facility] Address [facility] [place] [address] Care Team Providers Care Soap Chipper Name Role Phone Juan Dempsey MD Primary Care Provider [phone] Reason for Visit * Reason Comments Specialty Refill Management Cabometyx 60 mg tabs Encounter Details Date Type Department Care Team (Late st Contact Info) Description 03/19/2022 Specialty [place] [phone] Jonas Vásquez, [facility] Social History Tobacco Use Types Packs/Day Years [...] this encounter Progress Notes * Jonas Vásquez - 03/19/2022 8:31 AM EST Clinical Management Plan: Refill Specialty Pharmacy Consultation; Jonas Vásquez Comprehensive Medication Management (CMM) Cristofer Tenorio is [...] ??? Peanut Medication Reconciliation Discrepancies (compared to [facility] med list) No Specialty Pharmacy Refill Questionnaire Refill Questionnaire 03/19/2022 What is the name of the specialty medication you are refilling? Cabometyx 60mg tabs Are you taking any new medications? No Any new medical condition? No Any new allergies? No Any new side effects that are bothersome? No What date will you need this fill by? 04/01/2022 Adherence: Any missed doses? No Patient understands no changes to current drug regimen were made. Jonas Vásquez 03/19/22 8:32 AM documented in this encounter Plan of Treatment Upcoming Encounters Date Type Department Care Team (Late st Contact Info) Description 02/16/2024 9:15 AM EDT Laboratory Appointment Lab at [facility] Oncology [address] [place] [address] 02/16/2024 10:20 AM EDT Hospital Encounter CT Scan at [place] [phone] Mitali Griffiths APRN [facility] [place] [address] 02/16/2024 1:30 PM EDT Office Visit Hematology and Oncology at [place] [phone] Albino Bartholomew MD [facility] [place] [address] 04/17/2024 10:00 AM EST Office Visit Dermatology at [facility] [address] [place] [address] Oli Winter MD [address] [facility] [place] [address] documented as of this encounter Visit Diagnoses Not on filedocumented in this encounter Care Teams Soap Chipper Relationship Specialty Start Date End Date Juan Dempsey MD [address] [place] [address] PCP - General Emergency Medicine 08/20/21 documented as of this encounter
--- OUTSIDE RECORDS SUMMARY | 2024-02-03 16:55 | XMS_ITS | Encounter Summary ---
Author Organization [facility] Address [facility] [place] [address] Care Team Providers Care Trimmer Meat Name Role Phone Juan Dempsey MD Primary Care Provider [phone] Encounter Details Date Type Department Care Team (Late st Contact Info) Description 04/23/2022 Telephone Hematology [place] [address] Daxa Arriola RN Social History [...] Telephone Encounter - Daxa Arriola RN - 04/23/2022 11:43 AM EST Message received from clinical stenographer secretary: [phone] Reports that he has some new thrush medication, wants to make sure it is ok to take with his other meds Message sent to pt via Lunagames; Per Albino Bartholomew MD. Clotrimazole lozenges are okay. Hold Cabometyx for a few days if diarrhea is getting worse. Messages exchanged via Lunagames. documented in this encounter Plan of Treatment Upcoming Encounters Date Type Department Care Team (Late st Contact Info) Description 02/16/2024 9:15 AM EDT Laboratory Appointment Lab at [facility] Hematology Oncology [address] [place] [address] 02/16/2024 10:20 AM EDT Hospital [place] [address] Mitali Griffiths APRN [facility] [place] [address] 02/16/2024 1:30 PM EDT Office Visit Hematology [place] [address] Albino Bartholomew MD [facility] [address] [place] [address] 04/17/2024 10:00 AM EST Office Visit Dermatology at [facility] [address] [place] [address] Oli Winter MD [address] [facility] [place] [address] documented as of this encounter Visit Diagnoses Not on filedocumented in this encounter Care Teams Trimmer Meat Relationship Specialty Start Date End Date Juan Dempsey MD [address] [place] [address] PCP - General Emergency Medicine 08/20/21 documented as of this encounter
--- OUTSIDE RECORDS SUMMARY | 2024-02-03 16:55 | XMS_ITS | Encounter Summary ---
Author Organization [facility] Address [facility] [place] [address] Care Team Providers Care Doggy Daycare Activities Director Name Role Phone Juan Dempsey MD Primary Care Provider [phone] Reason for Visit * Reason Comments Specialty Refill Management Encounter Details Date Type Department Care Team (Late st Contact Info) Description 04/30/2022 Specialty [place] [phone] Reshma Gar, [facility] Social History Tobacco Use Types Packs/Day Years [...] this encounter Progress Notes * Reshma Gar [facility] - 04/30/2022 10:26 AM EST Clinical Management Plan: Refill Specialty Pharmacy Consultation; Reshma Gar [facility] Comprehensive Medication Management (CMM) Cristofer Tenorio is [...] to the Care Plan: yes - dose was decreased to 40 mg daily due to adverse effects,including diarrhea. Cristofer started taking clotrimazole for thrush but stopped this due to tingling of the mouth and nausea/vomiting after taking clotrimazole doses. He reports another white patch in his mouth and is concerned his thrush is worsening. Due to previous experience on clotrimazole and elevated liver enzymes, discouraged use of clotrimazole for now and advised that he call his PCP to discuss alternatives for treatment. In the meantime I advised him to rinse and spit a salt water and baking soda solution, avoid sugary foods, and drink plenty of water. If yes, should the medication be held: No Assessment and Recommendations: Medication Management Type of Medication Management: targeted medication review Referred By: provider Recipient: beneficiary Provider: plan sponsor pharmacist Visit Type: [facility] Follow-up Time Spent: 1-15 min Method of Contact: by telephone Cognitive Ability: good Allergies and Drug intolerance: Allergies Allergen Reactions ??? Grass Pollen-Orchardgrass, Standard ??? Peanut Medication Reconciliation Discrepancies (compared to [facility] med list) -n/a Specialty Pharmacy Refill Questionnaire Refill Questionnaire 04/30/2022 What is the name of the specialty medication you are refilling? cabozantinib Are you taking any new medications? Yes Please explain clotrimazole Any new medical condition? No Any new allergies? No Any missed doses since your last fill? 0 Any new side effects that are bothersome? Yes Please explain thrush, diarrhea What date will you need this fill by? 05/04/2022 Adherence: Specialty Med Adherence Patient Demonstrates Understanding of Importance of Adherence: Yes Educational Information or Adherence Tools Provided: Yes Patient Reported X Missed Doses in the Last Month: 0 Provider-Estimated Medication Adherence Level: 90-100% Adherence Tools Used: calendar Pt understands no changes to current drug regimen were made at the appointment and that [facility] is providing recommendations (summary located at top of note) for provider review and follow up. Reshma Gar RPH 04/30/22 10:31 AM documented in this encounter Plan of Treatment Upcoming Encounters Date Type Department Care Team (Late st Contact Info) Description 02/16/2024 9:15 AM EDT Laboratory Appointment Lab at [facility] Hematology Oncology [address] [place] [address] 02/16/2024 10:20 AM EDT Hospital [place] [phone] Mitali Griffiths APRN [facility] DR [place] [address] 02/16/2024 1:30 PM EDT Office Visit Hematology [place] [address] Albino Bartholomew MD [facility] DR [place] [address] 04/17/2024 10:00 AM EST Office Visit Dermatology at [facility] [address] [place] [address] Oli Winter MD [address] [facility] [place] [address] documented as of this encounter Visit Diagnoses Not on filedocumented in this encounter Care Teams Doggy Daycare Activities Director Relationship Specialty Start Date End Date Juan Dempsey MD [address] [place] [address] PCP - General Emergency Medicine 08/20/21 documented as of this encounter
--- OUTSIDE RECORDS SUMMARY | 2024-02-03 16:55 | XMS_ITS | Encounter Summary ---
Author Organization [facility] Address [facility] [place] [address] Care Team Providers Care Transcriber Name Role Phone Juan Dempsey MD Primary Care Provider [phone] Encounter Details Date Type Department Care Team (Latest Contact Info) Description 05/22/2022 9:30 AM EST TH Visit (TeleHealth) [place] [phone] Ana Pringle MD [facility] [place] [address] Drug-induced liver injury; Autoimmune hepatitis Social History Tobacco Use Types [...] as of this encounter Progress Notes * Ana Pringle MD - 05/22/2022 9:30 AM EST GASTROENTEROLOGY TELEMEDICINE PROGRAM - ESTABLISHED PATIENT VISIT Chief Complaint: Cristofer Tenorio is a 67 [address] of [address] Kathi ruiz. provider found here for follow-up of DILI. Detailed history: #DILI AIH Radical nephrectomy for RCC on June 20 He received one dose of adjuvant pembrolizumab on August 07. Next visit on 08/28/19 he had transiminitis grade 4, pembro was d/adithya and atorvastatin was also stopped 08/27/21 Total Bilirubin: 0.6 (Reference Range &??Units 0.2 - 1.3 mg/dL) Alk Phos: 198 (H) (Reference Range &??Units 40 - 130 unit/L) AST: 308 (H) (Reference Range &??Units 0 - 39 unit/L) ALT: 707 (H) (Reference Range &??Units 0 - 55 unit/L) Started prednisone 100 mg/day x 3 days (08/27-08/29) 80 mg/day x 3 days (08/30-09/01) 60 mg/day x 3 days (09/02-09/04) Prednisone 40 mg po 09/05-09/07 Prednisone 20 mg po 09/08-09/10 Prednisone 10 mg po 09/11-09/13 Initially responded well, once been 3 days off steroids ALT AST started going up again Restarted prednsione 80 mg 09/17, weekly CMPs AST/ALT nomalized 10/01/21 and 10/08/21 ??Been on 60 mg daily of pred since 09/24. 60mg/day x 1 week 40mg/day x 1 week 20mg/day x 1 week Had fever 103F and new swelling in lower left leg, under bilateral eye, and bilateral hands. I sent him to ED. Doppler US - LL DVT on Eliquis, No fever in ER He was on 10 mg of prednsisone 10/20 Liver enzymes 10/28/21 09:41 Total Bilirubin: 0.5 (Reference Range &??Units 0.2 - 1.3 mg/dL) Alk Phos: 102 (Reference Range &??Units 40 - 130 unit/L) AST: 44 (H) (Reference Range &??Units 0 - 39 unit/L) ALT: 157 (H) (Reference Range &??Units 0 - 55 unit/L) He is currently on prednisone 20 mg. ?? Start budesonide 9 mg on 10/30/2021 and stopped prednisone - Budesonide decreased to 6 mg on 12/22/2021 - Decreased budesonide to 3 mg but increased back to 9 mg with bump in LFTs at end of Apr (also hadCOVID and on antifungal at the time) ? Latest Reference Range & Units 08/07/21 09:11 08/27/21 12:16 08/29/21 08:36 09/01/21 09:09 09/04/21 09:30 09/08/21 15:48 09/10/21 12:50 09/17/21 12:27 09/24/21 00:00 10/01/21 00:00 10/08/21 12:57 10/28/21 09:41 Total Bilirubin 0.2 - 1.3 mg/dL 0.3 0.6 0.4 (E) 0.3 (E) 0.4 (E) 0.4 (E) 0.5 (E) 0.5 0.4 (E) 0.7 (E)0.6 0.5 Alk Phos 40 - 130 unit/L 153 (H) 198 (H) 188 !??(E) 158 !??(E) 137 !??(E) 123 !??(E) 116 (E) 131 (H) 127 !??(E) 108 (E) 96 102 AST 0 - 39 unit/L 23 308 (H) 162 !??(E) 67 !??(E) 35 (E) 29 (E) 30 (E) 65 (H) 24 (E) 15 (E) 25 44 (H) ALT 0 - 55 unit/L 49 707 (H) 779 !??(E) 473 !??(E) 274 !??(E) 166 !??(E) 153 !??(E) 166 (H) 111 !??(E) 58 (E) 45 157 (H) Latest Reference Range & Units 11/04/21 00:00 11/26/21 09:13 12/22/21 08:30 01/08/22 00:00 Total Bilirubin 0.2 - 1.3 mg/dL 0.6 (E) 0.5 0.5 0.3 (E) Bili, Direct 0.0 - 0.3 mg/dL 0.1 Alk Phos 40 - 130 unit/L 90 (E) 95 111 89 (E) AST 0 - 39 unit/L 27 (E) 17 16 14 (E) ALT 0 - 55 unit/L 80 (H) (E) 28 21 35 (E) Latest Reference Range & Units 03/18/22 11:44 04/01/22 14:14 04/15/22 13:45 04/29/22 00:00 05/06/22 00:00 05/20/22 07:56 Total Bilirubin 0.2 - 1.3 mg/dL 0.3 0.6 (E) 0.5 0.7 (E) 0.7 (E) 0.5 Bili, Direct 0.0 - 0.3 mg/dL 0.1 0.1 0.1 Alk Phos 40 - 130 unit/L 130 162 (H) (E) 155 (H) 167 (E) 154 (E) 122 AST 0 - 39 unit/L 29 36 (E) 50 (H) 103 (E) 79 (E) 62 (H) ALT 0 - 55 unit/L 60 (H) 68 (H) (E) 92 (H) 266 (E) 236 (E) 160 (H) Interval history: His liver enzymes increased while on antifungals for thrush. He also had COVID. He had a sore throat a week ago, but this has improved. He has an appointment with ENT for dizziness and feeling off balance. He has dry skin from his chemo. Review of systems: 14-point review of systems reviewed and negative except as above. Medications: Outpatient Medications Prior to Visit Medication Sig Dispense Refill ??? clotrimazole (Mycelex) 10 mg Neri Take 10 mg by mouth 5 times daily. ??? nystatin (Mycostatin) 100,000 unit/mL Suspension Take 5 mLs by mouth 4 times daily. 473 mL 0 ??? cabozantinib (Cabometyx) 40 mg tablet Take 1 tablet (40 mg) by mouth daily. Take on an empty stomach. Call clinic before starting medication. Indications: renal cell carcinoma 30 tablet 11 ??? chlorthalidone (Hygroten) 25 mg Tablet Take 25 mg by mouth daily. ??? potassium chloride SA (Klor-con) 10 mEq Tab Sust.Rel. Particle/Crystal Take 1 tablet by mouth 2times daily. 60 tablet 1 ??? meclizine (Antivert) 25 mg Tablet Take 25 mg by mouth 3 times daily as needed. ? ? budesonide EC (Entocort EC) 3 mg Capsule, Delayed & Ext.Release Take 3 capsules by mouth every morning. 90 capsule 3 ??? Eliquis 5 mg [...] Take 100 mg by mouth daily. No facility-administered medications prior to visit. Allergies: is allergic to grass pollen-orchardgrass, standard and peanut. Past Medical History: has a past medical history of Claudication, High blood pressure, Hyperlipidemia, and Renal cell carcinoma (07/16/2021). Past Surgical History: has a past surgical history that includes hernia repair (Left); Achilles tendon surgery; Remv Kidney, Radical (43725) (Left, 06/23/2021); Cystourethroscopy (55699) (N/A, 06/23/2021); Colonoscopy, Diagnostic (31067) (N/A, 10/02/2021); and CT Guided Biopsy Lung (02/04/2022). Family History: family history includes Breast Cancer in his mother and paternal cousin; Breast Cancer (age of onset: 53) in his sister; Colorectal Cancer (age of onset: 67) in his maternal uncle; Colorectal Cancer (age of onset: 70) in his maternal aunt; Leukemia in his brother; Lymphoma in his mother; Melanoma (age of onset: 60) in his brother; Pancreatic Cancer in his paternal cousin; Pancreatic Cancer (age of onset: 61) in his brother; Stomach Cancer in his paternal uncle. Social History: reports that he has never smoked. He has never used smokeless tobacco. He reports that he does not drink alcohol and does not use drugs. Physical exam: No Physical Examination performed during this telemedicine visit Laboratory studies, imaging, and procedures (my review of prior records): See HPI Assessment/Plan: Mr. Tenorio is a 67 y.o. 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 We are currently working on slowly tapering down his budesonide. Discussed his recent bump in AST/ALT likely secondary to COVID and his antifungal. This is improving. Will decrease budesonide 6 mg. Continue with lab monitoring every two weeks. Patient verbally consents to this telephone visit and understands that this visit may be billed, similar to a clinic office visit. I provided care to the patient today via telephone call, 20 minutes telephone visit was spent in discussion with patient on above. Was located in [place] at the time ofthis encounter. Approximae time in review of records and documentation 5 minutes. Approximate totaltime devoted to this single encounter on the day of the encounter: 25 minutes Ana Pringle MD [facility] [place] [address] documented in this encounter Plan of Treatment Upcoming Encounters Date Type Department Care Team (Late st Contact Info) Description 02/16/2024 9:15 AM EDT Laboratory Appointment Lab at [facility] [place] On[place] [address] [place] [address] 02/16/2024 10:20 AM EDT Hospital [place] [address] Mitali Griffiths APRN [facility] DR [place] [address] 02/16/2024 1:30 PM EDT Office Visit Hematology [place] [address] Albino Bartholomew MD [facility] DR [place] [address] 04/17/2024 10:00 AM EST Office Visit Dermatology at [facility] [address] [place] [address] Oli Winter MD [address] [facility] [place] [address] documented as of this encounter Visit Diagnoses Diagnosis Drug-induced liver injury Autoimmune hepatitis documented in this encounter Care Teams Transcriber Relationship Specialty Start Date End Date Juan Dempsey MD [address] [place] [address] PCP - General Emergency Medicine 08/20/21 documented as of this encounter
--- OUTSIDE RECORDS SUMMARY | 2024-02-03 16:55 | XMS_ITS | Encounter Summary ---
Author Organization [facility] Address [facility] [place] [address] Care Team Providers Care Youth Probation Officer Name Role Phone Juan Dempsey MD Primary Care Provider [phone] Reason for Visit * Reason Onset Date Comments Medication Refill 04/30/2022 Encounter Details Date Type Department Care Team (Late st Contact Info) Description 04/30/2022 Refill Hematology [place] [address] Rose Mary Abarca, SOCIAL MEDIA ANALYST ROOM Social History Tobacco Use Types Packs/Day Years [...] Encounter - Rose Mary Abarca RN - 04/30/2022 1:29 PM EST Pt wrote in requesting nystatin for thrush. Script pended to provider for review, signature and escribe. documented in this encounter Plan of Treatment Upcoming Encounters Date Type Department Care Team (Late st Contact Info) Description 02/16/2024 9:15 AM EDT Laboratory Appointment Lab at [facility] Hematology Oncology [address] [place] [address] 02/16/2024 10:20 AM EDT Hospital Encounter CT Scan at [place] [phone] Mitali rGiffiths APRN [facility] [address] [place] [address] 02/16/2024 1:30 PM EDT Office Visit Hematology and Oncology at [place] [phone] Albino Bartholomew MD [facility] [address] [place] [address] 04/17/2024 10:00 AM EST Office Visit Dermatology at [address] [place] [address] Oli Winter MD [address] [facility] [place] [address] documented as of this encounter Visit Diagnoses Not on filedocumented in this encounter Care Teams Youth Probation Officer Relationship Specialty Start Date End Date Juan Dempsey MD [address] [place] [address] PCP - General Emergency Medicine 08/20/21 documented as of this encounter
--- OUTSIDE RECORDS SUMMARY | 2024-02-03 16:55 | XMS_ITS | Encounter Summary ---
Author Organization [facility] Address [facility] [place] [address] Care Team Providers Care Debeaker Name Role Phone Juan Dempsey MD Primary Care Provider [phone] Encounter Details Date Type Department Care Team (Late st Contact Info) Description 03/18/2022 Orders [place] [address] Ana Pringle MD [facility] [place] [address] Drug-induced liver injury Social History Tobacco Use [...] [facility] H[facility] Oncology [address] [place] [address] 02/16/2024 10:20 AM EDT Hospital [place] [address] Mitali Griffiths APRN [facility] DR [place] [address] 02/16/2024 1:30 PM EDT Office Visit Hematology [place] [address] Albino Bartholomew MD [facility] [address] [place] [address] 04/17/2024 10:00 AM EST Office Visit Dermatology at [facility] [address] [place] [address] Oli Winter MD [address] [facility] [place] [address] documented as of this encounter Visit Diagnoses Diagnosis Drug-induced liver injury documented in this encounter Care Teams Debeaker Relationship Specialty Start Date End Date Juan Dempsey MD [address] [place] [address] PCP - General Emergency Medicine 08/20/21 documented as of this encounter
--- OUTSIDE RECORDS SUMMARY | 2024-02-03 16:55 | XMS_ITS | Encounter Summary ---
Author Organization [facility] Address [facility] [place] [address] Care Team Providers Care Laboratory Monitor Name Role Phone Juan Dempsey MD Primary Care Provider [phone] Encounter Details Date Type Department Care Team (Latest Contact Info) Description 05/20/2022 Travel Social History Tobacco Use Types Packs/Day [...] 9:15 AM EDT Laboratory Appointment Lab at [facility] [place]ematology Oncology [address] [place] [address] 02/16/2024 10:20 AM EDT Hospital [place] [address] Mitali Griffiths APRN [facility] DR HEMATOLOGY [place] [address] 02/16/2024 1:30 PM EDT Office Visit Hematology [place] [address] Albino Bartholomew MD [facility] DR HEMATOLOGY [place] [address] 04/17/2024 10:00 AM EST Office Visit Dermatology at [facility] [address] [place] [address] Oli Winter MD [address] [facility] [place] [address] documented as of this encounter Visit Diagnoses Not on filedocumented in this encounter Care Teams Laboratory Monitor Relationship Specialty Start Date End Date Juan Dempsey MD [address] [place] [address] PCP - General Emergency Medicine 08/20/21 documented as of this encounter
--- OUTSIDE RECORDS SUMMARY | 2024-02-03 16:55 | XMS_ITS | Encounter Summary ---
Author Organization [facility] Address [facility] [place] [address] Care Team Providers Care Senior Counsel Name Role Phone Juan Dempsey MD Primary Care Provider [phone] Encounter Details Date Type Department Care Team (Late st Contact Info) Description 05/07/2022 External Results [place] [address] Ana Pringle MD [facility] [place] [address] Social History Tobacco Use Types Packs/Day Years [...] [facility] Hematology Oncology [address] [place] [address] 02/16/2024 10:20 AM EDT Hospital [place] [phone] Mitali Griffiths APRN [facility] DR [place] [address] 02/16/2024 1:30 PM EDT Office Visit Hematology [place] [phone] Albino Bartholomew MD [facility] [address] [place] [address] 04/17/2024 10:00 AM EST Office Visit Dermatology at [facility] [address] [place] [address] Oli Winter MD [address] [place] [address] documented as of this encounter Procedures Procedure Name Priority Date/Time Associated Diagnosis Comments EXTERNAL LAB CBC CMP THYROID RESULTS PANEL Routine 05/06/2022 documented in this encounter Results * CBC / CMP / Thyroid External Results (05/06/2022) Protein, Total 7.4 Albumin 3.6 Bilirubin, Total 0.7 Alkaline Phosphatase 154 Aspartate Aminotransferase 79 Alanine Aminotransferase 236 Historical Provider EXTERNAL LAB SUNITHA SERRANO documented in this encounter Visit Diagnoses Not on filedocumented in this encounter Care Teams Senior Counsel Relationship Specialty Start Date End Date Juan Dempsey MD [address] [place] [address] PCP - General Emergency Medicine 08/20/21 documented as of this encounter
--- OUTSIDE RECORDS SUMMARY | 2024-02-03 16:55 | XMS_ITS | Encounter Summary ---
Author Organization [facility] Address [facility] [place] [address] Care Team Providers Care Integrity Specialist Name Role Phone Juan Dempsey MD Primary Care Provider [phone] Encounter Details Date Type Department Care Team (Latest Contact Info) Description 03/11/2022 Travel Social History Tobacco Use Types Packs/Day [...] [facility] [place] Oncology [address] [place] [address] 02/16/2024 10:20 AM EDT Hospital [place] [phone] Mitali Griffiths APRN [facility] DR [place] [address] 02/16/2024 1:30 PM EDT Office Visit Hematology [place] [address] Albino Bartholomew MD [facility] DR [place] [address] 04/17/2024 10:00 AM EST Office Visit Dermatology at [facility] [address] [place] [address] Oli Winter MD [address] [facility] [place] [address] documented as of this encounter Visit Diagnoses Not on filedocumented in this encounter Care Teams Integrity Specialist Relationship Specialty Start Date End Date Juan Dempsey MD [address] [place] [address] PCP - General Emergency Medicine 08/20/21 documented as of this encounter
--- OUTSIDE RECORDS SUMMARY | 2024-02-03 16:55 | XMS_ITS | Encounter Summary ---
Author Organization [facility] Address [facility] [place] [address] Care Team Providers Care Senior Web Architect Name Role Phone Juan Dempsey MD Primary Care Provider [phone] Encounter Details Date Type Department Care Team (Latest Contact Info) Description 04/15/2022 1:34 PM EST - 04/15/2022 11:59 PM EST Hospital Encounter Hematology [place] [phone] Renal cell carcinoma, unspecified laterality; Metastatic renal cell carcinoma to lung, unspecified laterality; Abnormal thyroid function test; Drug-induced liver injury; Autoimmune hepatitis Discharge Disposition: Home Social History Tobacco Use Types Packs/Day Years Used Date Smoking Tobacco: Never Smokeless Tobacco: Never Alcohol Use Standard Drinks/Week Comments Never 0 (1 standard drink = 0.6 oz pur e alcohol) Overall Financial Resource Strain (CARDIA) Serigo r Date Recorded How hard is it [...] Take 100 mg by mouth daily. 04/11/2019 atorvastatin (Lipitor) 20 mg Tablet Take 20 mg by mouth daily. 04/23/2022 potassium chloride SA (Klor-con) 10 mEq Tab Sust.Rel. Particle/Crystal Take 1 tablet by mouth 2 times daily. 60 tablet 1 04/04/2022 08/24/2023 cabozantinib (Cabometyx) 60 mg tabletIndications:fatmata l cell [...] [facility] Hematology Oncology [address] [place] [address] 02/16/2024 10:20 AM EDT Hospital [place] [phone] Mitali Griffiths APRN [facility] [address] [place] [address] 02/16/2024 1:30 PM EDT Office Visit Hematology [place] [phone] Albino Bartholomew MD [facility] [address] [place] [address] 04/17/2024 10:00 AM EST Office Visit Dermatology at [facility] [address] [place] [address] Oli Winter MD [address] [facility] [address] [facility] [place] [address] Scheduled Orders Name Type Priority Associated Diagnoses Orde r Schedule Comprehensive metabolic panel (non-fasting) Lab Routine Metastatic renal cell carcinoma to lung, unspecified laterality 1 Occurrences starting 04/15/2022 until 04/15/2022 CBC (with Diff) Lab Routine Metastatic renal cell carcinoma to lung, unspecified laterality 1 Occurrences starting 04/15/2022 until 04/15/2022 Hepatic Function Panel Lab Routine Autoimmune hepatitis 1 Occurrences starting 04/15/2022 until 04/15/2022 documented as of this encounter Procedures Procedure Name Priority Date/Time Associated Diagnosis Comments BILIRUBIN, DIRECT Routine 04/15/2022 1:4 5 PM EST HEMOGRAM Routine 04/15/2022 1:45 PM EST Renal cell carcinoma, unspecified laterality DIFFERENTIAL, AUTOMATED Routine 04/15/2022 1:45 PM EST Renal cell carcinoma, unspecified laterality HC CBC,PLT & AUTO DIFF Routine 04/15/2022 1:45 PM EST Renal cell carcinoma, unspecified laterality HC THYROID STIMULATING HORMONE, SERUM Routine 04/15/2022 1:45 PM EST Metastatic renal cell carcinoma to lung, unspecified laterality Abnormal thyroid function test HC FREE THYROXINE (T4) Routine 04/15/2022 1:45 PM EST Metastatic renal cell carcinoma to lung, unspecified laterality Abnormal thyroid function test HC VENIPUNCTURE Routine 04/15/2022 1:45 PM EST Renal cell carcinoma, unspecified laterality documented in this encounter Results * Bilirubin, Direct (04/15/2022 1:45 PM EST) Bilirubin, Direct 0.1 0.0 - 0.3 mg/dL [facility] Blood 04/15/2022 1:45 PM EST 04/15/2022 1:49 PM EST Narrative Resulting Agency Comment Spec In Lab Ana Pringle MD CHEMISTRY ORDERABLES [facility] [place] [address] * Differential, Automated (04/15/2022 1:45 PM EST) Neutrophil % 66.4 % [facility] Neutrophil Absolute 4.64 1.70 - 6.10 x10(3)/[facility] Lymph % 24.2 % [facility] Lymphocytes Abs 1.7 0.9 - 3.2 x10(3)/[facility] LABORAT[facility] Monocyte % 4.0 % [facility] Monocyte Abs 0.3 0.3 - 0.9 x10(3)/[facility]AT[facility] Eos % 4.0 % [facility] Eosinophils Abs 0.3 0.0 - 0.4 x10(3)/[facility] LABORAT[facility] Basophil % 1.3 % [facility] Baso Absolute 0.1 0.0 - 0.1 x10(3)/[facility] LABORATORY Immature Gran % 0.10 % [facility] Comment: Immature granulocytes(IG's)percentage and absolute count will include metamyelocytes, myelocytes, and promyelocytes. Blood smears from CBCs yielding IG's will be scanned manually for concordance. If this scan disagrees with the automated IG or if promyelocytes are noted, a manual differential will be performed. Immature Gran Absolute 0.01 0.00 - 0.04 x10(3)/[facility] Blood 04/15/2022 1:45 PM EST 04/15/2022 1:48 PM EST Narrative Resulting Agency Comment Spec In Lab Albino Bartholomew MD HEMATOLOGY ORDERABLE S [facility] [place] [address] * (ABNORMAL) Hemogram (04/15/2022 1:45 PM EST) White Blood Cell 7.0 4.0 - 9.5 x10(3)/mc L [facility] Red Blood Cell 4.88 4.58 - 5.54 x10(6)/mc L [facility] Hemoglobin 14.3 13.7 - 16.5 g/dL [facility] Hematocrit 41.2 40.5 - 48.5 % [facility] Mean Cell Volume 84.4 82.9 - 93.1 fL [facility] Mean Cell Hemoglobin 29.3 27.5 - 32.1 pg [facility] Mean Cell Hemoglobin Concentration 34.7 32.0 - 35.7 g/dL [facility] Platelet 182 145 - 357 x10(3)/mc L [facility] RDW Standard Deviation 47.4(H) 36.0 - 45.0 fL [facility] RDW coefficient of variation 15.8(H) 11.4 - 13.8 % [facility] Mean Platelet Volume 9.1 7.6 - 12.9 fL [facility] NRBC% auto 0.0 % [facility] NRBC Absolute 0.000 0.000 - 0.000 x10(3)/mc L [facility] Blood 04/15/2022 1:45 PM EST 04/15/2022 1:48 PM EST Narrative Resulting Agency Comment Spec In Lab Albino Bartholomew MD HEMATOLOGY ORDERABLE S Performing Organization Address [facility] Co de Phone Number [facility] [place] [address] * (ABNORMAL) TSH (04/15/2022 1:45 PM EST) Thyroid Stimulating Hormone 13.90(H) 0.27 - 4.20 mcIU/mL [facility] Comment: Reference Interval (mcIU/mL): Females: ??First Trimester: 0.23-3.88 ??Second Trimester: 0.22-3.90 ??Third Trimester: 0.44-4.66 Blood 04/15/2022 1:45 PM EST 04/15/2022 1:49 PM EST Narrative Resulting Agency Comment Spec In Lab Albino Bartholomew MD CHEMISTRY ORDERABLES Performing Organization Address [facility] Co de Phone Number [facility] [place] [address] * T4, free (04/15/2022 1:45 PM EST) Free T4 1.10 0.93 - 1.70 ng/dL [facility] Comment: Reference Interval (ng/dL): Females: ??First Trimester: 0.97-1.68 ??Second Trimester: 0.77-1.51 ??Third Trimester: 0.77-1.49 Blood 04/15/2022 1:45 PM EST 04/15/2022 1:49 PM EST Narrative Resulting Agency Comment Spec In Lab Albino Bartholomew MD CHEMISTRY ORDERABLES [facility] [place] [address] * (ABNORMAL) Comprehensive metabolic panel (non-fasting) (04/15/2022 1:45 PM EST) Glucose 122 65 - 199 mg/dL [facility] Comment:Diabetes: >=200 mg/d L plus symptoms Blood Urea Nitrogen 30(H) 10 - 20 mg/dL [facility] Creatinine 1.77(H) 0.80 - 1.50 mg/dL [facility] Sodium 138 135 - 145 mmol/L [facility] Potassium 3.8 3.5 - 5.0 mmol/L [facility] Comment: Please note: ??Patients with WBC >100,000 may have falsely elevated Potassium levels. ??For accurate Potassium quantification in these patients send serum separator tube (gold top) for subsequent determinations. ??Contact the Clinical Chemistry Laboratory if there are any questions. Chloride 103 98 - 107 mmol/L [facility] Carbon Dioxide 25 22 - 31 mmol/L [facility] Anion Gap 10 5 - 15 mmol/L [facility] Calcium 9.0 8.5 - 10.5 mg/dL [facility] Protein, Total 7.0 6.1 - 8.0 g/dL [facility] Albumin 3.7 3.2 - 5.2 g/dL [facility] Aspartate Aminotransferase 50(H) 0 - 39 unit/L [facility] Alanine Aminotransferase 92(H) 0 - 55 unit/L [facility] Alkaline Phosphatase 155(H) 40 - 130 unit/L [facility] Bilirubin, Total 0.5 0.2 - 1.3 mg/dL [facility] Est Glomerular Filtration Rate 42(L) >=60 mL/min/1. 73 m?? [facility] Comment: This patient's estimated GFR [...] and symptoms in addition to eGFR. Blood 04/15/2022 1:45 PM EST 04/15/2022 1:49 PM EST Narrative Resulting Agency Comment Spec In Lab Albino Bartholomew MD CHEMISTRY ORDERABLES Performing Organization Address City/State/[facility] Co de Phone Number [facility] [place] [address] documented in this encounter Visit Diagnoses Diagnosis Renal cell carcinoma, unspecified laterality Metastatic renal cell carcinoma to lung, unspecified laterality Abnormal thyroid function test Nonspecific abnormal results of thyroid function study Drug-induced liver injury Autoimmune hepatitis documented in this encounter Care Teams Senior Web Architect Relationship Specialty Start Date End Date Juan Dempsey MD [address] [place] [address] PCP - General Emergency Medicine 08/20/21 documented as of this encounter
--- OUTSIDE RECORDS SUMMARY | 2024-02-03 16:55 | XMS_ITS | Encounter Summary ---
Author Organization [facility] Address [facility] [place] [address] Care Team Providers Care Tool Machinist Name Role Phone Juan Dempsey MD Primary Care Provider [phone] Encounter Details Date Type Department Care Team (Late st Contact Info) Description 04/21/2022 Orders [place] [address] Ana Pringle MD [facility] [place] [address] Drug-induced liver injury Social History Tobacco Use [...] EDT Laboratory Appointment Lab at [facility] Hematology Oncology [address] [place] [address] 02/16/2024 10:20 AM EDT Hospital [place] [address] Mitali Griffiths APRN [facility] DR HEMATOLOGY [place] [address] 02/16/2024 1:30 PM EDT Office Visit Hematology [place] [phone] Albino Bartholomew MD [facility] DR [place] [address] 04/17/2024 10:00 AM EST Office Visit Dermatology at [facility] [address] [place] [address] Oli Winter MD [address] [facility] [address] documented as of this encounter Visit Diagnoses Diagnosis Drug-induced liver injury documented in this encounter Care Teams Tool Machinist Relationship Specialty Start Date End Date Juan Dempsey MD [address] [place] [address] PCP - General Emergency Medicine 08/20/21 documented as of this encounter
--- OUTSIDE RECORDS SUMMARY | 2024-02-03 16:55 | XMS_ITS | Encounter Summary ---
Author Organization [facility] Address [facility] [place] [address] Care Team Providers Care Premium Service Representative Name Role Phone Juan Dempsey MD Primary Care Provider [phone] Encounter Details Date Type Department Care Team (Late st Contact Info) Description 04/29/2022 Orders Only Hematology [place] [phone] Albino Bartholomew MD [facility] DR [place] [address] Social History Tobacco Use Types Packs/Day Years [...] [facility] Hematology Oncology [address] [place] [address] 02/16/2024 10:20 AM EDT Hospital [place] [address] Mitali Griffiths APRN [facility] DR HEMATOLOGY [place] [address] 02/16/2024 1:30 PM EDT Office Visit Hematology [place] [phone] Albino Bartholomew MD [facility] DR HEMATOLOGY [place] [address] 04/17/2024 10:00 AM EST Office Visit Dermatology at [facility] [address] [place] [address] Oli Winter MD [address] [facility] [place] [address] documented as of this encounter Visit Diagnoses Not on filedocumented in this encounter Care Teams Premium Service Representative Relationship Specialty Start Date End Date Juan Dempsey MD [address] [place] [address] PCP - General Emergency Medicine 08/20/21 documented as of this encounter
--- OUTSIDE RECORDS SUMMARY | 2024-02-03 16:55 | XMS_ITS | Encounter Summary ---
Author Organization [facility] Address [facility] [place] [address] Care Team Providers Care Greeting Card Writer Name Role Phone Juan Dempsey MD Primary Care Provider [phone] Encounter Details Date Type Department Care Team (Late st Contact Info) Description 06/10/2022 External Results [place] [phone] Rachell Shrestha, RN Social History Tobacco Use Types Packs/Day [...] Lab at [facility] Hematology Oncology [address] [place] [address] 02/16/2024 10:20 AM EDT Hospital Encounter [place] [address] Mitali Griffiths APRN [facility] [address] [place] [address] 02/16/2024 1:30 PM EDT Office Visit Hematology [place] [phone] Albino Bartholomew MD [facility] DR HEMATOLOGY [place] [address] 04/17/2024 10:00 AM EST Office Visit Dermatology at [facility] [address] [place] [address] Oli Winter MD [address] [facility] [place] [address] documented as of this encounter Procedures Procedure Name Priority Date/Time Associated Diagnosis Comments EXTERNAL LAB CBC CMP THYROID RESULTS PANEL Routine 06/03/2022 documented in this encounter Results * CBC / CMP / Thyroid External Results (06/03/2022) White Blood Cell 5.49 [facility] Red Blood Cell 4.16 [facility] Hemoglobin 12.8 [facility] Hematocrit 38.1 [facility] Mean Cell Volume 92.0 [facility] Platelet 149 [facility] Sodium 141 [facility] Potassium 3.6 [facility] Chloride 106 [facility] Carbon Dioxide 29 [facility] Blood Urea Nitrogen 29 [facility] Creatinine 1.9 [facility] Est Glomerular Filtration Rate 38.19 [facility] Glucose 111 [facility] Calcium 9.0 [facility] Protein, Total 6.8 [facility] Albumin 3.6 [facility] Bilirubin, Total 0.6 [facility] Alkaline Phosphatase 117 [facility] Aspartate Aminotransferase 59 [facility] Alanine Aminotransferase 151 [facility] 06/03/2022 Historical Provider EXTERNAL LAB [facility] documented in this encounter Visit Diagnoses Not on filedocumented in this encounter Care Teams Greeting Card Writer Relationship Specialty Start Date End Date Juan Dempsey MD [address] [place] [address] PCP - General Emergency Medicine 08/20/21 documented as of this encounter
--- OUTSIDE RECORDS SUMMARY | 2024-02-03 16:55 | XMS_ITS | Encounter Summary ---
Author Organization [facility] Address [facility] [address] Care Team Providers Care Retail Parts Pro Name Role Phone Juan Dempsey MD Primary Care Provider [phone] Reason for Visit * Reason Comments Specialty Pharmacy Review Cabometyx 60mg tablet Encounter Details Date Type Department Care Team (Late st Contact Info) Description 04/15/2022 Specialty [place] [phone] Kelin Chong, [facility] Social History Tobacco Use Types [...] encounter Progress Notes * Kelin Chong - 04/15/2022 11:59 PM EST The [facility] has completed a benefits investigation for Cristofer Tenorio to review their eligibility to fill at [facility]. Per patient's medication list they are prescribedCabometyx 60mg tablet and the medication is able to be filled at the [facility]. The patient is currently filling the medication through Specialty Pharmacy with a $0 copay. PA approved until 2025 documented in this encounter Plan of Treatment Upcoming Encounters Date Type Department Care Team (Late st Contact Info) Description 02/16/2024 9:15 AM EDT Laboratory Appointment Lab at [facility] Hematology Oncology [address] [place] [address] 02/16/2024 10:20 AM EDT Hospital [place] [address] Mitali Griffiths APRN [facility] DR HEMATOLOGY [place] [address] 02/16/2024 1:30 PM EDT Office Visit Hematology [place] [address] Albino Bartholomew MD [facility] DR HEMATOLOGY [place] [address] 04/17/2024 10:00 AM EST Office Visit Dermatology at [facility] [address] [place] [address] Oli Winter MD [address] [facility] [place] [address] documented as of this encounter Visit Diagnoses Not on filedocumented in this encounter Care Teams Retail Parts Pro Relationship Specialty Start Date End Date Juan Dempsey MD [address] [place] [address] PCP - General Emergency Medicine 08/20/21 documented as of this encounter
--- OUTSIDE RECORDS SUMMARY | 2024-02-03 16:55 | XMS_ITS | Encounter Summary ---
Author Organization [facility] Address [facility] [place] [address] Care Team Providers Care Tiltrotor Crew Chief Name Role Phone Juan Dempsey MD Primary Care Provider [phone] Reason for Referral * Diagnostic Test (Routine) - Closed Specialty Diagnoses / Procedures Referred By Contac t Referred To Contact Radiology Diagnoses Metastatic renal cell carcinoma to lung, unspecified laterality Procedures CT Chest Abdomen Pelvis w Contrast (Generic) Albino Bartholomew MD [facility] [address] [place] [address] [facility] [place] [address] Referral ID Status Reason Start Date Expiration Date V isits Requested Visits Authorized [id number] Closed Specialty Service Requested 05/20/2022 11/18/2023 1 1 Reason for Visit * Reason Comments Follow-up Encounter Details Date Type Department Care Team (Late st Contact Info) Description 05/20/2022 9:30 AM EST Office Visit Hematology [place] [address] Albino Bartholomew MD [facility] DR [place] [address] Tre Mcnair MD [facility] HEMATOLOGY/[place] [address] Kyle Donohue PA [facility] [place] [address] Metastatic renal cell carcinoma to lung, unspecified laterality; Elevated LFTs; High risk medication use; Renal cell carcinoma of left kidney; Abnormal thyroid function test Social History Tobacco [...] Sign Reading Time Taken Comments Blood Pressure 114/70 05/20/2022 9:14 AM EST Pulse 72 05/20/2022 9:14 AM EST Temperature 36.4 ??C (97.5 ??F) 05/20/2022 9:14 AM ES T Respiratory Rate 18 05/20/2022 9:14 AM EST Oxygen Saturation 94% 05/20/2022 9:14 AM EST Inhaled Oxygen Concentration - - Weight 98.2 kg (216 lb 9.6 oz) 05/20/2022 9:14 A M EST Height 108.4 cm (3' 6.68) 05/20/2022 9:14 AM ES T Body Mass Index 83.61 05/20/2022 9:14 AM EST documented in this encounter Progress Notes * Tre Mcnair MD - 05/20/2022 9:30 AM EST Images from the original note [...] f/u on kidney cancer. LV with Dr. Bartholomew on 04/15/22. Since that visit, patient developed oral thrush for which she was started on clotrimazole. Then he developed nausea/vomiting. He also noted diarrhea intermittently every other day. He had missed cabometyx on 04/26 and 04/27 and restarted on 04/28. He had elevated LFTs on 04/29 (AST 103, ALT 266) and noted to have n/v so dose was decreased to 40mg. Patient began the cabometyx 40mg on Wednesday. May 04. He has improved appetite now. He has very minimal nausea and no vomiting. No diarrhea since about a week ago. His energy levels are similar and good today. He is sleeping well. He only endorsed sore throat that is improving and saw PCP a week ago which thought it was residual viral infection. He is going to see ENT next week for dizziness and feeling off balance. BP is higher than usual. Seeing PCP next week. He has one episode of nocturia which is improved from 2-3 last visit. No UTI symptoms. No skin change. Patient Active Problem List Diagnosis Code ??? Renal mass N28.89 ??? Renal cell carcinoma C64.9 ??? Medication management Z79.899 PMH, PSH, and current medications reviewed, as documented in the electronic medical record. Current Outpatient Medications on File Prior to Visit Medication Sig Dispense Refill ??? cabozantinib (Cabometyx) 40 mg tablet Take [...] Take 100 mg by mouth daily. ??? clotrimazole (Mycelex) 10 mg Neri Take 10 mg by mouth 5 times daily. ??? nystatin (Mycostatin) 100,000 unit/mL Suspension Take 5 mLs by mouth 4 times daily. 473 mL 0 No current facility-administered medications on file prior to visit. 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 Wt Readings from Last 3 Encounters: 05/20/22 98.2 kg (216 lb 9.6 oz) 04/15/22 104.5 kg (230 lb 6.1 oz) 03/18/22 109.5 kg (241 lb 6.5 oz) PE: Exam: ECOG PS: 0 General: NAD, [...] Conversant, normal mood and affect. Vitals: BP 114/70 (Patient Position: Sitting) Pulse 72 Temp 36.4 ??C (97.5 ??F) (Temporal) Resp 18 Ht 108.4 cm (3' 6.68) Wt 98.2 kg (216 lb 9.6 oz) SpO2 94% BMI 83.61 kg/m?? Lab results: Recent Results (from the past 24 hour(s)) T4, free Result Value Ref Range Free T4 1.38 0.93 - 1.70 ng/dL TSH Result Value Ref Range TSH 14.70 (H) 0.27 - 4.20 mcIU/mL Comprehensive metabolic panel (non-fasting) Result Value Ref Range Glucose Lvl 103 65 - 199 mg/dL BUN 31 (H) 10 - 20 mg/dL Creatinine 1.71 (H) 0.80 - 1.50 mg/dL Sodium 141 135 - 145 mmol/L Potassium 3.4 (L) 3.5 - 5.0 mmol/L Chloride 104 98 - 107 mmol/L CO2 26 22 - 31 mmol/L Anion Gap 11 5 - 15 mmol/L Calcium 9.4 8.5 - 10.5 mg/dL Total Protein 6.5 6.1 - 8.0 g/dL Albumin 4.0 3.2 - 5.2 g/dL AST 62 (H) 0 - 39 unit/L ALT 160 (H) 0 - 55 unit/L Alk Phos 122 40 - 130 unit/L Total Bilirubin 0.5 0.2 - 1.3 mg/dL Estimated GFR 43 (L) >=60 mL/min/1.73 m?? Hemogram Result Value Ref Range WBC 7.2 4.0 - 9.5 x10(3)/mcL RBC 4.46 (L) 4.58 - 5.54 x10(6)/mcL Hemoglobin 13.7 13.7 - 16.5 g/dL Hematocrit 39.8 (L) 40.5 - 48.5 % MCV 89.2 82.9 - 93.1 fL MCH 30.7 27.5 - 32.1 pg MCHC 34.4 32.0 - 35.7 g/dL Platelets 158 145 - 357 x10(3)/mcL RDWSD 56.8 (H) 36.0 - 45.0 fL RDWCV 17.4 (H) 11.4 - 13.8 % MPV 9.9 7.6 - 12.9 fL nRBC % Auto 0.0 % nRBC Abs Auto 0.000 0.000 - 0.000 x10(3)/mcL Differential, Automated Result Value Ref Range Neutrophils % 62.0 % Neutr Abs (ANC) 4.46 1.70 - 6.10 x10(3)/mcL Lymphocytes % 30.3 % Lymphocytes Abs 2.2 0.9 - 3.2 x10(3)/mcL Monocytes % 4.6 % Monocyte Abs 0.3 0.3 - 0.9 x10(3)/mcL Eosinophils % 2.2 % Eosinophils Abs 0.2 0.0 - 0.4 x10(3)/mcL Basophils % 0.8 % Basophils Abs 0.1 0.0 - 0.1 x10(3)/mcL Immature Gran % 0.10 % Roro Gran Abs 0.01 0.00 - 0.04 x10(3)/mcL Bilirubin, Direct Result Value Ref Range Bili, Direct 0.1 0.0 - 0.3 mg/dL Pathology: 02/04/22 DIAGNOSIS A - Lung, left, [...] in the abdomen and pelvis. 10/20/21 CXR ([facility]): 10/16/21: IMPRESSION 1. Unexpected finding: New 6 [...] taper. Pt prefers to get labs at [facility]. We'll send orders and I'll ask our escrow manager to f/u on results. Advised pt [...] and has resolution the GI side effects. #L LE DVT: continue Eliquis per PCP. 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 He continues monitoring and management with Dr. Pringle, scheduled for f/u visit today. Slight increase of ALT to 60 as of 03/18/22. Uptrending LFTs on 04/29 (AST 103, ALT 266) but now improving on lab work today 05/20. Mr. Tenorio asked appropriate questions and verbalized good understanding of and agreement with the plan. I encouraged him to call anytime with questions or concerns and he agreed. Plan: - Continue Cabometyx 40 mg a day. C3D1 05/04/22 - CBC and CMP in 2 weeks locally at [facility] Next visit in 5 weeks with CBC, CMP, TSH, free T4 - CT C/A/P in 5 weeks - f/u genetic test Mr. Tenorio asked appropriate questions and verbalized good understanding of and agreement with the plan. I encouraged him to call anytime with questions or concerns and he agreed. Case seen and discussed with Dr. [place] Mcnair MD Hematology/Oncology Fellow [facility] * Albino Bartholomew MD - 05/20/2022 9:30 AM EST Oncology Attending Addendum I personally reviewed the history, examined the patient, reviewed relevant labs and viewed recent radiographic images. I directly participated in management decisions. My exam and assessment concur with . Please refer to his comprehensive note for details. Plan: 1. Continue Cabometyx 40 mg a day 2. F/u with GI/liver team 3. CBC and CMP in 2 weeks locally 4. Next visit in 4 weeks with MD with blood work, CT chest abdomen pelvis Albino Bartholomew MD Hematology/Oncology Section, [facility] Construction Job Titlesnurse practitioner [place], [employer] [phone] documented in this encounter Plan of Treatment Upcoming Encounters Date Type Department Care Team (Late st Contact Info) Description 02/16/2024 9:15 AM EDT Laboratory Appointment Lab at [facility] Hematology Oncology [address] [place], [place] [id number] 02/16/2024 10:20 AM EDT Hospital [place] [address] Mitali Griffiths APRN [facility] DR [place] [address] 02/16/2024 1:30 PM EDT Office Visit Hematology [place] [address] Albino Bartholomew MD [facility] DR [place] [address] 04/17/2024 10:00 AM EST Office Visit Dermatology at [facility] [address] [place] [address] Oli Winter MD [address] [facility] [place] [address] Scheduled Orders Name Type Priority Associated Diagnoses Orde r Schedule Comprehensive metabolic panel (non-fasting) Lab Routine Metastatic renal cell carcinoma to lung, unspecified laterality Expected: 06/17/2022 (Approximate), Expires: 05/20/2023 TSH Lab Routine Metastatic renal cell carcinoma to lung, unspecified laterality High risk medication use Abnormal thyroid function test Expected: 06/20/2022, Expires: 12/20/2022 T4, free Lab Routine Metastatic renal cell carcinoma to lung, unspecified laterality High risk medication use Abnormal thyroid function test Expected: 06/20/2022, Expires: 12/20/2022 Comprehensive metabolic panel (non-fasting) Lab Routine Metastatic renal cell carcinoma to lung, unspecified laterality Every 2 Weeks for 4 Occurrences starting 05/20/2022 until 05/20/2023 documented as of this encounter Results * (ABNORMAL) CT Chest [...] who have questions please contact the health youth career specialist that requested your imaging first. ? Electronically signed by: Tima Zacarias MD, [facility] ([phone]), at 06/26/2022 3:18 PM Narrative 06/26/2022 3:18 PM EST EXAMINATION: CT [...] renal cell carcinoma to lung, unspecified laterality Elevated LFTs Other abnormal blood chemistry High risk medication use Encounter for long-term (current) use of other medications Renal cell carcinoma of left kidney Abnormal thyroid function test Nonspecific abnormal results of thyroid function study Metastatic renal cell carcinoma to lung, unspecified laterality documented in this encounter Care Teams Tiltrotor Crew Chief Relationship Specialty Start Date End Date Juan Dempsey MD [address] [place] [id number] PCP - General Emergency Medicine 08/20/21 documented as of this encounter
--- OUTSIDE RECORDS SUMMARY | 2024-02-03 16:55 | XMS_ITS | Encounter Summary ---
Author Organization [facility] Address [facility] [place] [address] Care Team Providers Care Facility Environmental Technician Name Role Phone Juan Dempsey MD Primary Care Provider [phone] Reason for Visit * Reason Comments Specialty Pharmacy Review Specialty Refill Management Encounter Details Date Type Department Care Team (Late st Contact Info) Description 03/19/2022 Specialty [place] [id number] Reshma Gar, [facility] Social History Tobacco Use Types Packs/Day Years [...] of this encounter Progress Notes * Reshma Gar, [facility] - 03/19/2022 8:30 AM EST Comprehensive Medication Management (CMM) Cristofer Tenorio Diagnosis: Renal cell carcinoma Therapy Start Date: 02/26/2022 Contact in person or via telephone: telephone Mr. Cristofer Tenorio is a 67 y.o. (1955) male who was contacted in regard to specialty medication. Spoke with patient regarding cabozantinib. A review of the medication therapy was performed. The medication was Refilled as scheduled, and all medication related questions and concerns were addressed. The specialty pharmacy staff will follow up with the patient 5-7 days prior to next refill. Is the patient willing to proceed with the Clinical Assessment? Yes Summary and Recommendations: ??? Patient was contacted for a 1-month follow-up consultation for cabozantinib. ??? Medication dosing and administration were reviewed. Cristofer reported he has been taking cabozantinib daily at 4pm, 2 hours after his lunch and 1 hour before dinner. ??? Medication and allergy reconciliation was completed. Cristofer wanted to know if it was okay for him to take Dayquil or Nyquil while on cabozantinib. We reviewed that because these products contain acetaminophen and he also takes Tylenol PRN for pain, he should make sure he does not exceed 4000 mg of acetaminophen in a day. We also discussed that acetaminophen-containing products can mask fever, a nd that he should take his temperature prior to taking acetaminophen and let clinic know if it is at or over 100.4 degrees. ??? The patient is experiencing the following side effects: o Diarrhea/gassiness: Cristofer reports that he typical has 1 bout of diarrhea after eating dinner. He has started eating larger lunches and smaller dinners and stated that he feels this has helped. We discussed importance of hydration throughout each day and rehydration with electrolyte-containing beverages in the event of diarrhea. We also discussed that loperamide is appropriate for management of diarrhea, especially if he has more than 1 loose stool daily, but Cristofer stated that he is toleratingthis side effect and does not feel the need to treat with OTC medications. I encouraged him to keeptrack of the number of loose stools he has daily and to contact clinic if this side effect worsens over time. o High blood pressure: Cristofer is being followed by his PCP and has an appointment scheduled on 03/23/22 for blood pressure management. He states that his blood pressure is usually ~140 mmHg systolic, but that it has increased to being as high as 174 mmHg systolic since starting cabozantinib. He monitors his blood pressure at home. We discussed that if his blood pressure is ever >180 mmHg/ >11 0 mmHg, he should contact his provider and seek medical attention. o Sore throat: Cristofer reported that he has been experiencing some sore throat-- this will also be discussed at his upcoming PCP appointment. o Dry skin: Cristofer is unsure if this started after starting on cabozantinib, but we discussed that rash and hand-foot reaction are potential side effects. He has been moisturizing his hands and feet with Gold Valdez cream and feels this works well. He denied any discomfort otherwise. ??? Patient concerns and questions about therapy included: brina Cleveland was interested in knowing if he should continue to take his blood pressure medications in the morning or if he should take his blood pressure medications together with cabozantinib. I told him that he could continue his current schedule and timing of the medications should not matter. brina Cleveland is planning to receive his flu shot soon. We reviewed that he should postpone this should he develop a fever or feel under the weather, but that he can schedule this otherwise. ??? Other discussion points reviewed during this encounter: brina Cleveland tested positive for COVID-19 shortly after starting cabozantinib. He was instructed to holdtherapy for 5 days and has since resumed therapy. brina Cleveland reported strong adherence to therapy-- he uses a notebook as well as a weekly pill box to make sure he takes his medication on time. Clinic follow-up needed: yes - continued monitoring and follow up Allergies and Drug intolerance: Allergies Allergen Reactions ??? Grass Pollen-Orchardgrass, Standard ??? Peanut Problem List: Patient Active Problem List Diagnosis Code ??? Renal mass N28.89 ??? Renal cell carcinoma C64.9 ??? Medication management Z79.899 Special Dietary or Hydration Requirements: yes - take cabozantinib 1 hour before or 2 hours after food Medication Reconciliation Discrepancies (compared to [facility] med list) yes - Cristofer reported he is no longer on atorvastatin; removed this from medication list Medication List: Current Outpatient Medications Medication Sig Dispense Refill ??? cabozantinib (Cabometyx) 60 mg tablet Take [...] Take 100 mg by mouth daily. ??? meclizine (Antivert) 25 mg Tablet Take 25 mg by mouth 3 times daily as needed. No current facility-administered medications for this visit. Most Recent Vitals: Ht Readings from Last 1 Encounters: 03/18/22 177.8 cm (5' 10) Wt Readings from Last 3 Encounters: 03/18/22 109.5 kg (241 lb 6.5 oz) 02/13/22 108.6 kg (239 lb 6.7 oz) 11/26/21 101.6 kg (224 lb) Temp Readings from Last 3 Encounters: 03/18/22 36.8 ??C (98.2 ??F) (Temporal) 02/13/22 37.9 ??C (100.2 ??F) (Temporal) 02/04/22 36.3 ??C (97.4 ??F) (Temporal) BP Readings from Last 3 Encounters: 03/18/22 156/88 02/13/22 160/81 02/04/22 160/69 Pulse Readings from Last 3 Encounters: 03/18/22 85 02/13/22 91 02/04/22 86 There is no height or weight on file to calculate BMI. Pertinent Lab values: Lab Results Component Value Date NA 143 03/18/2022 K 3.5 03/18/2022 CL 104 03/18/2022 CO2 32 (H) 03/18/2022 BUN 19 03/18/2022 CREATININE 1.46 03/18/2022 GLUCOSE 112 03/18/2022 CALCIUM 9.4 03/18/2022 Lab Results Component Value Date ALT 60 (H) 03/18/2022 AST 29 03/18/2022 ALKPHOS 130 03/18/2022 BILITOT 0.3 03/18/2022 BILIDIR 0.1 03/18/2022 ALBUMIN 4.0 03/18/2022 PROT 6.9 03/18/2022 Lab Results Component Value Date WBC 11.8 (H) 03/18/2022 HGB 15.1 03/18/2022 HCT 44.2 03/18/2022 MCV 84.0 03/18/2022 PLATELET 203 03/18/2022 No results found for: HA1C Immunization History Administered Date(s) Administered ??? Moderna Covid-19 (Billboard Poster Helper 100mcg) Vaccine 07/03/2020, 07/31/2020, 02/24/2021 ??? Zoster, Recombinant 03/16/2019 Assessment and Recommendations: Patient Counseling Patient informed of specialty services: Yes Patient accepted offer to pastoral counselor: select all, adherence/missed doses, cost of medications/cost implications, doses and administration, possible drug/OTC drug and food interactions, possible adverse side effects and management, pharmacy contact information, lab monitoring/follow up, possible drug/Rx drug interactions, safe handling, storage, and disposal, therapeutic rationale Medication Management Summary Topics discussed: reviewed medication changes since last visit, medication safety precautions education provided, drug interaction education provided to patient, safe handling, storage, and disposal discussed, possible adverse effects and management discussed, lab monitoring and follow-up discussed, cost of medications and cost implications discussed, adherence and missed doses discussed, effects of medication in patients over 65 years of age discussed, health goals discussed, monitoring medication discussed, over the counter products discussed, preventative care discussed, reminder to refill or pick up driver medication discussed, self-monitoring discussed, start medication discussed, timing of medications discussed, lifestyle modification education, referral needs discussed Time spent: 46 - 60 min Treatment Outcomes 03/19/2022 0914 Disease progression: Stable Patient Overall Status: Stable Reviewed in detail with patient: Dose appropriateness based on recommended standard dosing Current medication list including OTC medications Medication and disease problems Allergies Comorbid conditions/ Problem List Past adverse events if any Special needs of the patient including physical and cognitive limitations Goals of therapy and management strategies Warnings, precautions, and contraindications Side effects Drug-drug and drug-food interactions Administration instructions including dose, frequency and method Handling, storage, and disposal Verifying expiration dates on products before use Rotating medication inventory to use oldest product first Relevant lab data Treatments impact on disease Dose appropriateness based on recommended standard dosing schedule, including any variations from FDA approved dosing Patient verbalizes understanding and is able to read-back instructions on self-administration/injection, proper storage, drug stability, importance of adherence and management strategies, side effect avoidance and mitigation strategies, and interruptions in therapy: Yes Patient is aware a licensed pharmacist is available 24 hours a day, 7 days a week to discuss medication-related questions or concerns: Yes Patient verbalizes understanding of the common side effect profile of their medication. The patient is able to call 911 or seek urgent care if signs/symptoms of allergy or harmful adverse reactions occur: Yes Additional care/services needed: No Additional equipment/supplies required: No Patient satisfied with care/services provided: Yes Specialty Assessment: Physical and Cognitive Assessment: Functional limitations identified: No Cognitive limitations identified: No Concern regarding orientation/memory: No Concern with reasoning/judgement: No Is patient a fall risk: No Social Assessment: Does patient have a primary school childcare attendant: No Does patient have an emergency contact on file: Yes Does patient need referral to community mental health social worker: No Does patient need referral to advocacy group: No Home Health Assessment: Is the patient in a safe home environment?: Yes Is the patient able to store their medication as directed?: Yes Does the patient have a support network at home?: Yes Reviewed potential home safety hazards with patient: Yes Economic Assessment: Patient is agreeable to medication copay: Yes Actual Copay: $: 0 Days Supply: 30 Welcome Packet and Rights and Responsibilities: Patient provided welcome packet/rights and responsibilities: Yes Date Confirmed: 03/19/22 Confirmation: Verbal Specialty Med Adherence Patient Demonstrates Understanding of Importance of Adherence: Yes Educational Information or Adherence Tools Provided: Yes Patient Reported X Missed Doses in the Last Month: 0 Provider-Estimated Medication Adherence Level: 90-100% Adherence Tools Used: calendar Therapy Assessment: Current Medication Dosing/Route/Frequency: Cabometyx 60 mg tablets: take 1 tablet by mouth daily Patient-Reported Side Effects: yes - high blood pressure, sore throat, tiredness, loose stools and gassiness, skin dryness, loss of taste sometimes Patient assessed for pertinent side effects such as arthralgia, neuropathy, vision changes, cough, rash, hand/foot syndrome, hot flashes, nausea, and diarrhea or constipation. Adjunct medication needed? no Is the patient experiencing pain? no Appropriate Therapy: Yes Effective: will be assessed in the future Treatment Outcome: Therapy continued Patient Goals: Hematology/Oncology related goals may include remission, palliative or hospice care, a bridge to future surgery, transplant, and radiation or infusion therapy. Patient's specific desired goal: maintain 95% or greater adherence without significant rash or nausea Measured by: patient-reported missed doses and adverse events Time-frame to meet goal: each refill encounter Is the patient on track to achieve goals of therapy? Yes If no, what are the barriers and action plan to reach the goal: n/a On a scale of 1-10 the patient rates their quality of life: n/a Care Plan and Interventions: Care Plan Reviewed and Approved by both Pharmacist and Patient: Yes Did Care Plan Change? No If yes: Change to plans of care based on: Patient's request: no Condition: no Response to therapy: no Provider request: no Follow-up needed: No Interventions (if applicable): no Patient experienced change in condition that affects treatment: no Patient Satisfied with Therapy: yes - Pharmacist follow-up needed: No Follow-Up Visit Scheduled: no Delivery Method: Delivery Patient understands no changes to current drug regimen were made at the appointment and that [facility] (summary located at top of note) for provider review and follow up. Reshma Gar RPH 03/19/22 9:18 AM documented in this encounter Plan of Treatment Upcoming Encounters Date Type Department Care Team (Late st Contact Info) Description 02/16/2024 9:15 AM EDT Laboratory Appointment Lab at [facility] Hematology Oncology [address] [place] [address] 02/16/2024 10:20 AM EDT Hospital [place] [address] Mitali Griffiths APRN [facility] [address] HEMATOLOGY [place] [address] 02/16/2024 1:30 PM EDT Office Visit Hematology [place] [address] Albino Bartholomew MD [facility] DR HEMATOLOGY [place] [address] 04/17/2024 10:00 AM EST Office Visit Dermatology at [facility] [address] [place] [phone] Oli Winter MD [address] [facility] [address] documented as of this encounter Visit Diagnoses Not on filedocumented in this encounter Care Teams Facility Environmental Technician Relationship Specialty Start Date End Date Juan Dempsey MD [address] [place] [address] PCP - General Emergency Medicine 08/20/21 documented as of this encounter
--- OUTSIDE RECORDS SUMMARY | 2024-02-03 16:56 | XMS_ITS | Encounter Summary ---
Author Organization [facility] Address [facility] [place] [address] Care Team Providers Care Lactation Nurse Name Role Phone Juan Dempsey MD Primary Care Provider [phone] Encounter Details Date Type Department Care Team (Late st Contact Info) Description 03/04/2022 Telephone Hematology [place] [address] Daxa Arriola RN Social History [...] Telephone Encounter - Daxa Arriola RN - 03/04/2022 1:35 PM EDT Message received from clinical card services specialist: [phone] Cirstofer tested positive for covid today. Wants to know if he should do anything different with his cabometyx Forwarded [facility] advice request to Dr. Bartholomew. Discussed with Dr. Bartholomew at weekly team meeting. Dr. Bartholomew would like pt to discontinue useof Cabometyx and start antivirals recommended by PCP. [facility] message sent to pt explaining above plan. documented in this encounter Plan of Treatment Upcoming Encounters Date Type Department Care Team (Late st Contact Info) Description 02/16/2024 9:15 AM EDT Laboratory Appointment Lab at [facility] Hematology Oncology [address] [place] [address] 02/16/2024 10:20 AM EDT Hospital [place] [address] [facility] [address] [place] [address] 02/16/2024 1:30 PM EDT Office Visit Hematology and Oncology at [facility] [place] [address] [facility] [address] [place] [address] 04/17/2024 10:00 AM EST Office Visit Dermatology at [address] [place] [address] Oli Winter MD [address] [facility] [place] [address] documented as of this encounter Visit Diagnoses Not on filedocumented in this encounter Care Teams Lactation Nurse Relationship Specialty Start Date End Date Juan Dempsey MD [address] [place] [address] PCP - General Emergency Medicine 08/20/21 documented as of this encounter
--- OUTSIDE RECORDS SUMMARY | 2024-02-03 16:56 | XMS_ITS | Encounter Summary ---
Author Organization [facility] Address [facility] [place] [address] Care Team Providers Care Single Ending Machine Operator Name Role Phone Juan Dempsey MD Primary Care Provider [phone] Encounter Details Date Type Department Care Team (Latest Contact Info) Description 12/22/2021 8:25 AM EDT Laboratory Appointment Laboratory at [facility] [address] Elevated LFTs; Renal cell carcinoma, unspecified laterality; Drug-induced hepatitis Social History Tobacco Use Types Packs/Day [...] [facility] [place] [address] [place], [place] [id number] 02/16/2024 10:20 AM EDT Hospital [place] [address] Mitali Griffiths APRN [facility] [address] [place] [address] 02/16/2024 1:30 PM EDT Office Visit Hematology [place] [address] Albino Bartholomew MD [facility] [address] [place] [address] 04/17/2024 10:00 AM EST Office Visit Dermatology at [facility] [address] [place] [address] Oli Winter MD [address] [facility] [place] [address] documented as of this encounter Procedures Procedure Name Priority Date/Time Associated Diagnosis Comments HEMOGRAM Routine 12/22/2021 8:30 AM EDT Drug-induced hepatitis DIFFERENTIAL, AUTOMATED Routine 12/22/2021 8:30 AM EDT Drug-induced hepatitis HC PROTHROMBIN TIME Routine 12/22/2021 8 :30 AM EDT Drug-induced hepatitis HC CBC,PLT & AUTO DIFF Routine 8:30 AM EDT Drug-induced hepatitis COMPREHENSIVE METABOLIC PANEL STAT 12/22/2021 8:30 AM EDT Elevated LFTs documented in this encounter Results * (ABNORMAL) Differential, Automated (12/22/2021 8:30 AM EDT) Neutrophil % 80.6 % [facility] Neutrophil Absolute 8.57(H) 1.70 - 6.10 x10(3)/mc L [facility] Lymph % 11.1 % [facility] Lymphocytes Abs 1.2 0.9 - 3.2 x10(3)/mc L [facility] Monocyte % 4.0 % [facility] Monocyte Abs 0.4 0.3 - 0.9 x10(3)/mc L [facility] Eos % 3.5 % [facility] Eosinophils Abs 0.4 0.0 - 0.4 x10(3)/mc L [facility] Basophil % 0.5 % [facility] Baso Absolute 0.0 0.0 - 0.1 x10(3)/mc L [facility] Immature Gran % 0.30 % [facility] Comment: Immature granulocytes(IG's)percentage and absolute count will include metamyelocytes, myelocytes, and promyelocytes. Blood smears from CBCs yielding IG's will be scanned manually for concordance. If this scan disagrees with the automated IG or if promyelocytes are noted, a manual differential will be performed. Immature Gran Absolute 0.03 0.00 - 0.04 x10(3)/mc L [facility] Blood 12/22/2021 8:30 AM EDT 12/22/2021 8:44 AM EDT Narrative Resulting Agency Comment Spec In Lab Ana Pringle MD HEMATOLOGY ORDERABLE S Performing Organization Address [facility] Co de Phone Number LABORATORY [address] [place] [address] * (ABNORMAL) Hemogram (12/22/2021 8:30 AM EDT) White Blood Cell 10.6(H) 4.0 - 9.5 x10(3)/mc L [facility] Red Blood Cell 5.00 4.58 - 5.54 x10(6)/mc L [facility] Hemoglobin 14.7 13.7 - 16.5 g/dL [facility] Hematocrit 45.5 40.5 - 48.5 % [facility] Mean Cell Volume 91.0 82.9 - 93.1 fL [facility] Mean Cell Hemoglobin 29.4 27.5 - 32.1 pg [facility] Mean Cell Hemoglobin Concentration 32.3 32.0 - 35.7 g/dL [facility] Platelet 217 145 - 357 x10(3)/mc L [facility] RDW Standard Deviation 47.0(H) 36.0 - 45.0 fL [facility] RDW coefficient of variation 13.8 11.4 - 13.8 % [facility] Mean Platelet Volume 9.4 7.6 - 12.9 fL [facility] Blood 12/22/2021 8:30 AM EDT 12/22/2021 8:44 AM EDT Narrative Resulting Agency Comment Spec In Lab Ana Pringle MD HEMATOLOGY ORDERABLE S Performing Organization Address [facility]/ZIP Co de Phone Number LABORATORY [address] [place] [address] * (ABNORMAL) Prothrombin Time (12/22/2021 8:30 AM EDT) Prothrombin Time 14.3(H) 9.4 - 12.5 sec [facility] International Normalization Ratio 1.2 [facility] Comment: An INR <2.0 indicates adequate procoagulant activity for hemostasis in most patients without underlying bleeding disorders, though the INR may not adequately reflect hemostatic capacity in patients with liver disease and synthetic impairment. The recommended target INR range for therapeutic anticoagulation is 2.0 ? 3.0 for most applications, though lower and higher ranges may be appropriate depending on clinical circumstances. Blood 12/22/2021 8:30 AM EDT 12/22/2021 8:44 AM EDT Narrative Resulting Agency Comment Spec In Lab Ana Pringle MD HEMATOLOGY ORDERABLE S LABORATORY [address] [place] [address] * (ABNORMAL) Comprehensive metabolic panel (non-fasting) (12/22/2021 8:30 AM EDT) Glucose 147 65 - 199 mg/dL [facility] Comment:Diabetes: >=200 mg/d L plus symptoms Blood Urea Nitrogen 24(H) 10 - 20 mg/dL [facility] Creatinine 1.25 0.80 - 1.50 mg/dL [facility] Sodium 143 135 - 145 mmol/L [facility] Potassium 3.8 3.5 - 5.0 mmol/L [facility] Comment: Please note: ??Patients with WBC >100,000 may have falsely elevated Potassium levels. ??For accurate Potassium quantification in these patients send serum separator tube (gold top) for subsequent determinations. ??Contact the Clinical Chemistry Laboratory if there are any questions. Chloride 103 98 - 107 mmol/L [facility] Carbon Dioxide 29 22 - 31 mmol/L [facility] Anion Gap 11 5 - 15 mmol/L [facility] Calcium 9.4 8.5 - 10.5 mg/dL [facility] Protein, Total 6.9 6.1 - 8.0 g/dL [facility] Albumin 4.0 3.2 - 5.2 g/dL [facility] Aspartate Aminotransferase 16 0 - 39 unit/L [facility] Alanine Aminotransferase 21 0 - 55 unit/L [facility] Alkaline Phosphatase 111 40 - 130 unit/L [facility] Bilirubin, Total 0.5 0.2 - 1.3 mg/dL [facility] Est Glomerular Filtration Rate 64 >=60 mL/min/1. 73 m?? [facility] Comment: This patient's estimated GFR was [...] and symptoms in addition to eGFR. Blood 12/22/2021 8:30 AM EDT 12/22/2021 8:44 AM EDT Narrative Resulting Agency Comment Spec In Lab Kelin Carlos STOPPERER ASSEMBLER CHEMISTRY ORDERABL ES Performing Organization Address City/State/[facility] Co de Phone Number [facility] [address] [place] [address] documented in this encounter Visit Diagnoses Diagnosis Elevated LFTs Other abnormal blood chemistry Renal cell carcinoma, unspecified laterality Drug-induced hepatitis Hepatitis, unspecified documented in this encounter Care Teams Single Ending Machine Operator Relationship Specialty Start Date End Date Juan Dempsey MD [address] [place] [address] PCP - General Emergency Medicine 08/20/21 documented as of this encounter
--- OUTSIDE RECORDS SUMMARY | 2024-02-03 16:56 | XMS_ITS | Encounter Summary ---
Author Organization [facility] Address [facility] [place] [address] Care Team Providers Care Manager Analysis Name Role Phone Juan Dempsey MD Primary Care Provider Encounter Details Date Type Department Care Team (Late st Contact Info) Description 02/04/2022 Orders [place] [address] Ana Pringle MD [facility] [place] [address] Drug-induced liver injury Social History Tobacco Use Types Packs/Day Years Used Date Smoking Tobacco: Never Smokeless Tobacco: Never Alcohol Use Standard Drinks/Week Comments Never 0 (1 standard drink = 0.6 oz pur e alcohol) Overall Financial Resource Strain (CARDIA) Fbaye r Date Recorded How hard is it [place] On[place] [address] [place] [address] 02/16/2024 10:20 AM EDT Hospital [place] [address] Mitali Griffiths APRN [facility] [address] [place] [address] 02/16/2024 1:30 PM EDT Office Visit Hematology [place] [address] Albino Bartholomew MD [facility] [address] HEMATOLOGY [place] [address] 04/17/2024 10:00 AM EST Office Visit Dermatology at [facility] [address] [place] [address] Oli Winter MD [address] [facility] [place] [address] documented as of this encounter Visit Diagnoses Diagnosis Drug-induced liver injury documented in this encounter Care Teams Manager Analysis Relationship Specialty Start Date End Date Juan Dempsey MD [address] [place] [address] PCP - General Emergency Medicine 08/20/21 documented as of this encounter
--- OUTSIDE RECORDS SUMMARY | 2024-02-03 16:56 | XMS_ITS | Encounter Summary ---
Author Organization [facility] Address [facility] [place] [address] Care Team Providers Care Longitudinal Float Operator Name Role Phone Juan Dempsey MD Primary Care Provider [phone] Encounter Details Date Type Department Care Team (Late st Contact Info) Description 02/19/2022 Telephone Hematology [place] [address] Rose Mary Abarca CHIEF LIBRARIAN [facility] Social History Tobacco Use Types Packs/Day [...] Encounter - Rose Mary Abarca RN - 02/19/2022 9:38 AM EDT Message received from legal secretary: [phone] Cristofer asks for a call back He read the 02/17 phone note with Bonita, says not phone call happened. Also, says that the note says he lives alone - which is not true, he lives with his On the he received a call in response to his call. The next call he received was from the pharmacy. He has not received his cabometyx, coming next week. He is aware to call clinic when he receives it States he never received a call from Bonita and that he doesn't live alone. Spoke w/ pt and reassured him will notify Bonita of his concerns and request she amend her note. Explained about note templates and that she was doing a check of the prescription (first portion of note). All his concerns addressed to his apparent satisfaction. He is aware to call clinic w/any concerns/questions and when he obtains the cabometyx. documented in this encounter Plan of Treatment Upcoming Encounters Date Type Department Care Team (Late st Contact Info) Description 02/16/2024 9:15 AM EDT Laboratory Appointment Lab [place] [facility] [place] On[place] [address] [place], [place] [id number] 02/16/2024 10:20 AM EDT Hospital [place] [address] Mitali Griffiths APRN [facility] [address] [place] [address] 02/16/2024 1:30 PM EDT Office Visit [place]ology [place] [address] Albino Bartholomew MD [facility] [address] [place] [address] 04/17/2024 10:00 AM EST Office Visit Dermatology at [facility] [address] [place] [address] Oli Winter MD [address] [facility] [place] [address] documented as of this encounter Visit Diagnoses Not on filedocumented in this encounter Care Teams Longitudinal Float Operator Relationship Specialty Start Date End Date Juan Dempsey MD [address] [place] [address] PCP - General Emergency Medicine 08/20/21 documented as of this encounter
--- OUTSIDE RECORDS SUMMARY | 2024-02-03 16:56 | XMS_ITS | Encounter Summary ---
Author Organization [facility] Address [facility] [place] [address] Care Team Providers Care Otr Tanker Truck Driver Name Role Phone Juan Dempsey MD Primary Care Provider [phone] Reason for Visit * Reason Comments Follow-up Encounter Details Date Type Department Care Team (Late st Contact Info) Description 02/13/2022 1:00 PM EDT Office Visit [place]ology [place] [phone] Albino Costello MD [facility] DR [place] [address] Edith Joaquin APRN [facility] [place] [address] Metastatic renal cell carcinoma to lung, unspecified laterality (Primary Dx); Renal cell carcinoma, unspecified laterality; Multiple lung nodules on CT; Abnormal thyroid [...] Sign Reading Time Taken Comments Blood Pressure 160/81 02/13/2022 1:13 PM EDT Pulse 91 02/13/2022 1:13 PM EDT Temperature 37.9 ??C (100.2 ??F) 02/13/2022 1:13 PM E DT Respiratory Rate 18 02/13/2022 1:13 PM EDT Oxygen Saturation 97% 02/13/2022 1:13 PM EDT Inhaled Oxygen Concentration - - Weight 108.6 kg (239 lb 6.7 oz) 02/13/2022 1:13 PM EDT Height 177.6 cm (5' 9.92) 02/13/2022 1:13 PM ED T Body Mass Index 34.43 02/13/2022 1:13 PM EDT documented in this encounter Progress Notes * Albino Costello MD - 02/13/2022 1:00 PM EDT Images from the original note were not included. History of Present Illness: Mr. Tenorio is a 66 y.o. man referred by Dr. Hou for [...] is in clinic for f/u on kidney cancer and review results of lung biopsy. Hefeels well today.No constitutional, respiratory, urinary, bowel, or skin concerns. Shoulder main much improved, especially when I'm not using it -ROS otherwise negative. Patient Active Problem List Diagnosis Code ??? Renal mass N28.89 ??? Renal cell carcinoma C64.9 ??? Medication management Z79.899 PMH, PSH, and current medications reviewed, as documented in the electronic medical record. Current Outpatient Medications on File Prior to Visit Medication Sig Dispense Refill ? ? 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 Wt Readings from Last 3 Encounters: 11/26/21 101.6 kg (224 lb) 11/26/21 101.6 kg (224 lb) 10/29/21 100.2 kg (221 lb) PE: Exam: ECOG PS: 0 General: [...] Conversant, normal mood and affect. Vitals: BP 160/81 (Patient Position: Sitting) Pulse 91 Temp 37.9 ??C (100.2 ??F) (Temporal) Resp 18 Ht 177.6 cm (5' 9.92) Wt 108.6 kg (239 lb 6.7 oz) SpO2 97% BMI 34.43 kg/m?? Lab results: 02/04/22 reviewed Pathology: 02/04/22 DIAGNOSIS [...] in the abdomen and pelvis. 10/20/21 CXR ([facility]): 10/16/21: IMPRESSION 1. Unexpected finding: New 6 [...] CT ABD/Pelvis Assessment: Raymundo Tenorio is a 66 [address] Hou for recently [...] taper. Pt prefers to get labs at [facility]. We'll send orders and I'll ask our burglar alarm assembler to f/u on results. Advised pt to [...] with Cabometyx. Informed verbal consent was obtained. #L LE DVT: continue Eliquis per PCP. 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 He continues monitoring and management with Dr. Pringle, scheduled for f/u visit today. Mr. Tenorio asked appropriate questions and verbalized good understanding of and agreement with the plan. I encouraged him to call anytime with questions or concerns and he agreed. Plan: -Start Cabometyx 60 mg a day - Next visit in 4 weeks with CBc, cMP, TSH, freeT4 Mr. Tenorio asked appropriate questions and verbalized good understanding of and agreement with the plan. I encouraged him to call anytime with questions or concerns and he agreed. ALBINO COSTELLO MD Oncology documented in this encounter Miscellaneous Notes * Addendum Note - Albino Costello MD - 02/13/2022 1:00 PM EDTAddended by: ALBINO COSTELLO on: 02/13/2022 02:03 PM Modules accepted: Orders documented in this encounter Plan of Treatment Upcoming Encounters Date Type Department Care Team (Late st Contact Info) Description 02/16/2024 9:15 AM EDT Laboratory Appointment Lab at [facility] Hematology Oncology [address] [place] [address] 02/16/2024 10:20 AM EDT Hospital Encounter CT Scan at [place] [phone] Mitali Griffiths APRN [facility] [place] [address] 02/16/2024 1:30 PM EDT Office Visit Hematology and Oncology at [place] [phone] Albino Costello MD [facility] [place] [address] 04/17/2024 10:00 AM EST Office Visit Dermatology at [address] [place] [address] Oli Winter MD [address] [facility] [place] [address] Scheduled Orders Name Type Priority Associated Diagnoses Orde r Schedule CBC (with Diff) Lab Routine Metastatic renal cell carcinoma to lung, unspecified laterality Every 4 Weeks for 4 Occurrences starting 02/13/2022 until 02/13/2023, 2 completed Comprehensive metabolic panel (non-fasting) Lab Routine Metastatic renal cell carcinoma to lung, unspecified laterality Every 4 Weeks for 4 Occurrences starting 02/13/2022 until 02/13/2023, 3 completed documented as of this encounter Results * T4, free (06/26/2022 11:12 AM EST) Free T4 1.34 0.93 - 1.70 ng/dL [facility] Comment: Reference Interval (ng/dL): Females: ??First Trimester: 0.97-1.68 ??Second Trimester: 0.77-1.51 ??Third Trimester: 0.77-1.49 Blood 06/26/2022 11:1 2 AM EST 06/26/2022 11:19 AM EST Narrative Resulting Agency Comment Spec In Lab Albino Costello MD CHEMISTRY ORDERABLES [facility] [place] [address] * (ABNORMAL) TSH (06/26/2022 11:12 AM EST) Thyroid Stimulating Hormone 10.60(H) 0.27 - 4.20 mcIU/mL [facility] Comment: Reference Interval (mcIU/mL): Females: ??First Trimester: 0.23-3.88 ??Second Trimester: 0.22-3.90 ??Third Trimester: 0.44-4.66 Blood 06/26/2022 11:1 2 AM EST 06/26/2022 11:19 AM EST Narrative Resulting Agency Comment Spec In Lab Albino Costello MD CHEMISTRY ORDERABLES [facility] [place] [address] * (ABNORMAL) Comprehensive metabolic panel (non-fasting) (06/26/2022 11:12 AM EST) Glucose 117 65 - 199 mg/dL [facility] Comment:Diabetes: >=200 mg/d L plus symptoms Blood Urea Nitrogen 28(H) 10 - 20 mg/dL [facility] Creatinine 1.80(H) 0.80 - 1.50 mg/dL [facility] Sodium 138 135 - 145 mmol/L [facility] Potassium 3.9 3.5 - 5.0 mmol/L [facility] Comment: Please note: ??Patients with WBC >100,000 may have falsely elevated Potassium levels. ??For accurate Potassium quantification in these patients send serum separator tube (gold top) for subsequent determinations. ??Contact the Clinical Chemistry Laboratory if there are any questions. Chloride 102 98 - 107 mmol/L [facility] Carbon Dioxide 27 22 - 31 mmol/L [facility] Anion Gap 9 5 - 15 mmol/L [facility] Calcium 9.1 8.5 - 10.5 mg/dL [facility] Protein, Total 6.6 6.1 - 8.0 g/dL [facility] Albumin 4.2 3.2 - 5.2 g/dL [facility] Aspartate Aminotransferase 42(H) 0 - 39 unit/L [facility] Alanine Aminotransferase 86(H) 0 - 55 unit/L [facility] Alkaline Phosphatase 121 40 - 130 unit/L [facility] Bilirubin, Total 0.6 0.2 - 1.3 mg/dL [facility] Est Glomerular Filtration Rate 41(L) >=60 mL/min/1. 73 m?? [facility] Comment: This patient's estimated GFR was [...] Costello MD CHEMISTRY ORDERABLES Performing Organization Address [facility] Co de Phone Number [facility] [place] [address] * T4, free (05/20/2022 7:56 AM EST) Free T4 1.38 0.93 - 1.70 ng/dL [facility] Comment: Reference Interval (ng/dL): Females: ??First Trimester: 0.97-1.68 ??Second Trimester: 0.77-1.51 ??Third Trimester: 0.77-1.49 Blood 05/20/2022 7:56 AM EST 05/20/2022 8:02 AM EST Narrative Resulting Agency Comment Spec In Lab Albino Costello MD CHEMISTRY ORDERABLES Performing Organization Address [facility] de Phone Number [facility] [place] [address] * (ABNORMAL) TSH (05/20/2022 7:56 AM EST) Thyroid Stimulating Hormone 14.70(H) 0.27 - 4.20 mcIU/mL [facility] Comment: Reference Interval (mcIU/mL): Females: ??First Trimester: 0.23-3.88 ??Second Trimester: 0.22-3.90 ??Third Trimester: 0.44-4.66 Blood 05/20/2022 7:56 AM EST 05/20/2022 8:02 AM EST Narrative Resulting Agency Comment Spec In Lab Albino Costello MD CHEMISTRY ORDERABLES [facility] [address] [place] [address] * (ABNORMAL) Comprehensive metabolic panel (non-fasting) (05/20/2022 7:56 AM EST) Glucose 103 65 - 199 mg/dL [facility] Comment:Diabetes: >=200 mg/d L plus symptoms Blood Urea Nitrogen 31(H) 10 - 20 mg/dL [facility] Creatinine 1.71(H) 0.80 - 1.50 mg/dL [facility] Sodium 141 135 - 145 mmol/L [facility] Potassium 3.4(L) 3.5 - 5.0 mmol/L [facility] Comment: Please note: ??Patients with WBC >100,000 may have falsely elevated Potassium levels. ??For accurate Potassium quantification in these patients send serum separator tube (gold top) for subsequent determinations. ??Contact the Clinical Chemistry Laboratory if there are any questions. Chloride 104 98 - 107 mmol/L [facility] Carbon Dioxide 26 22 - 31 mmol/L [facility] Anion Gap 11 5 - 15 mmol/L [facility] Calcium 9.4 8.5 - 10.5 mg/dL [facility] Protein, Total 6.5 6.1 - 8.0 g/dL [facility] Albumin 4.0 3.2 - 5.2 g/dL [facility] Aspartate Aminotransferase 62(H) 0 - 39 unit/L [facility] Alanine Aminotransferase 160(H) 0 - 55 unit/L [facility] Alkaline Phosphatase 122 40 - 130 unit/L [facility] Bilirubin, Total 0.5 0.2 - 1.3 mg/dL [facility] Est Glomerular Filtration Rate 43(L) >=60 mL/min/1. 73 m?? [facility] Comment: This patient's estimated GFR was [...] Costello MD CHEMISTRY ORDERABLES Performing Organization Address [facility] Co de Phone Number [facility] [place] [address] * T4, free (04/15/2022 1:45 PM EST) Free T4 1.10 0.93 - 1.70 ng/dL [facility] Comment: Reference Interval (ng/dL): Females: ??First Trimester: 0.97-1.68 ??Second Trimester: 0.77-1.51 ??Third Trimester: 0.77-1.49 Blood 04/15/2022 1:45 PM EST 04/15/2022 1:49 PM EST Narrative Resulting Agency Comment Spec In Lab Albino Costello MD CHEMISTRY ORDERABLES Performing Organization Address [facility] Co de Phone Number [facility] [place] [place] [address] * (ABNORMAL) TSH (04/15/2022 1:45 PM EST) Thyroid Stimulating Hormone 13.90(H) 0.27 - 4.20 mcIU/mL [facility] Comment: Reference Interval (mcIU/mL): Females: ??First Trimester: 0.23-3.88 ??Second Trimester: 0.22-3.90 ??Third Trimester: 0.44-4.66 Blood 04/15/2022 1:45 PM EST 04/15/2022 1:49 PM EST Narrative Resulting Agency Comment Spec In Lab Albino Costello MD CHEMISTRY ORDERABLES Performing Organization Address [facility] Co de Phone Number [facility] [place] [address] * T4, free (03/18/2022 11:44 AM EST) Free T4 1.38 0.93 - 1.70 ng/dL [facility] Comment: Reference Interval (ng/dL): Females: ??First Trimester: 0.97-1.68 ??Second Trimester: 0.77-1.51 ??Third Trimester: 0.77-1.49 Blood 03/18/2022 11:4 4 AM EST 03/18/2022 11:59 AM EST Narrative Resulting Agency Comment Spec In Lab Albino Costello MD CHEMISTRY ORDERABLES Performing Organization Address [facility] de Phone Number [facility] [place] [place] [address] * (ABNORMAL) TSH (03/18/2022 11:44 AM EST) Pathologist [facility] Thyroid Stimulating Hormone 6.08(H) 0.27 - 4.20 mcIU/mL [facility] Comment: Reference Interval (mcIU/mL): Females: ??First Trimester: 0.23-3.88 ??Second Trimester: 0.22-3.90 ??Third Trimester: 0.44-4.66 Blood 03/18/2022 11:4 4 AM EST 03/18/2022 11:59 AM EST Narrative Resulting Agency Comment Spec In Lab Albino Costello MD CHEMISTRY ORDERABLES Performing Organization Address [facility] Co de Phone Number [facility] [place] [address] * (ABNORMAL) Comprehensive metabolic panel (non-fasting) (03/18/2022 11:44 AM EST) Glucose 112 65 - 199 mg/dL [facility] Comment:Diabetes: >=200 mg/d L plus symptoms Blood Urea Nitrogen 19 10 - 20 mg/dL [facility] Creatinine 1.46 0.80 - 1.50 mg/dL [facility] Sodium 143 135 - 145 mmol/L [facility] Potassium 3.5 3.5 - 5.0 mmol/L [facility] Comment: Please note: ??Patients with WBC >100,000 may have falsely elevated Potassium levels. ??For accurate Potassium quantification in these patients send serum separator tube (gold top) for subsequent determinations. ??Contact the Clinical Chemistry Laboratory if there are any questions. Chloride 104 98 - 107 mmol/L [facility] Carbon Dioxide 32(H) 22 - 31 mmol/L [facility] Anion Gap 7 5 - 15 mmol/L [facility] Calcium 9.4 8.5 - 10.5 mg/dL [facility] Protein, Total 6.9 6.1 - 8.0 g/dL [facility] Albumin 4.0 3.2 - 5.2 g/dL [facility] Aspartate Aminotransferase 29 0 - 39 unit/L [facility] Alanine Aminotransferase 60(H) 0 - 55 unit/L [facility] Alkaline Phosphatase 130 40 - 130 unit/L [facility] Bilirubin, Total 0.3 0.2 - 1.3 mg/dL [facility] Est Glomerular Filtration Rate 52(L) >=60 mL/min/1. 73 m?? [facility] Comment: This patient's estimated [...] In Lab Albino Costello MD CHEMISTRY ORDERABLES [facility] [place] [address] documented in this encounter Visit Diagnoses Diagnosis Metastatic renal cell carcinoma to lung, unspecified laterality- Primary Renal cell carcinoma, unspecified laterality Multiple lung nodules on CT Abnormal thyroid function test Nonspecific abnormal results of thyroid function study documented in this encounter Care Teams Otr Tanker Truck Driver Relationship Specialty Start Date End Date Juan Dempsey MD [address] [place] [address] PCP - General Emergency Medicine 08/20/21 documented as of this encounter
--- OUTSIDE RECORDS SUMMARY | 2024-02-03 16:56 | XMS_ITS | Encounter Summary ---
Author Organization [facility] Address [facility] [place] [address] Care Team Providers Care Cigar Head Stringer Name Role Phone Juan Dempsey MD Primary Care Provider [phone] Encounter Details Date Type Department Care Team (Late st Contact Info) Description 01/08/2022 External Results [place] [address] Ana Pringle MD [facility] [place] [address] Social History Tobacco Use Types Packs/Day Years [...] [facility] [address] [place] [address] 02/16/2024 10:20 AM EDT Hospital [place] [phone] Mitali Griffiths APRN [facility] DR HEMATOLOGY [place] [address] 02/16/2024 1:30 PM EDT Office Visit Hematology [place] [address] Albino Bartholomew MD [facility] DR HEMATOLOGY [place] [address] 04/17/2024 10:00 AM EST Office Visit Dermatology at [facility] [address] [place] [address] Oli Winter MD [address] [facility] [address] documented as of this encounter Procedures Procedure Name Priority Date/Time Associated Diagnosis Comments EXTERNAL LAB CBC CMP THYROID RESULTS PANEL Routine 01/08/2022 documented in this encounter Results * CBC / CMP / Thyroid External Results (01/08/2022) White Blood Cell 11.33 Red Blood Cell 4.88 Hemoglobin 14.3 Hematocrit 43.9 Mean Cell Volume 90.0 Platelet 211 Sodium 141 Potassium 3.8 Chloride 105 Carbon Dioxide 31 Blood Urea Nitrogen 32 Creatinine 1.5 Est Glomerular Filtration Rate 51.03 Glucose 169 Calcium 8.6 Protein, Total 7.0 Albumin 3.2 Bilirubin, Total 0.3 Alkaline Phosphatase 89 Aspartate Aminotransferase 14 Alanine Aminotransferase 35 Historical Provider MD EXTERNAL LAB SUNITHA SERRANO documented in this encounter Visit Diagnoses Not on filedocumented in this encounter Care Teams Cigar Head Stringer Relationship Specialty Start Date End Date Juan Dempsey MD [address] [place] [id number] PCP - General Emergency Medicine 08/20/21 documented as of this encounter
--- OUTSIDE RECORDS SUMMARY | 2024-02-03 16:56 | XMS_ITS | Encounter Summary ---
[facility] [place] [address] Care Team Providers Care Recreation Aide Name Role Phone Juan Dempsey MD Primary Care Provider [phone] Reason for Visit * Reason Comments Specialty Pharmacy Review Cabometyx 60mg tablet Encounter Details Date Type Department Care Team (Late st Contact Info) Description 02/20/2022 Specialty [place] [phone] Kelin Chong, [facility] Social History Tobacco Use Types Packs/Day [...] encounter Progress Notes * Kelin Chong - 02/20/2022 11:59 PM EDT [facility] has completed a benefits investigation for Cristofer Tenorio to review their eligibility to fill at [facility]. Per patient's medication list they are prescribedCabometyx 60mg tablet and the medication is able to be filled at the [facility]. The patient is currently filling the medication through Specialty Pharmacy with a $0 copay. PA approved until 2025 documented in this encounter Plan of Treatment Upcoming Encounters Date Type Department Care Team (Late st Contact Info) Description 02/16/2024 9:15 AM EDT Laboratory Appointment Lab at [facility] Hematology Oncology [address] [place] [address] 02/16/2024 10:20 AM EDT Hospital [place] [phone] Mitali Griffiths APRN [facility] [address] [place] [address] 02/16/2024 1:30 PM EDT Office Visit Hematology [place] [address] Albino Bartholomew MD [facility] [address] [place] [address] 04/17/2024 10:00 AM EST Office Visit Dermatology at [facility] [address] [place] [address] Oli Winter MD [address] [facility] [place] [address] documented as of this encounter Visit Diagnoses Not on filedocumented in this encounter Care Teams Recreation Aide Relationship Specialty Start Date End Date Juan Dempsey MD [address] [place] [address] PCP - General Emergency Medicine 08/20/21 documented as of this encounter
--- OUTSIDE RECORDS SUMMARY | 2024-02-03 16:56 | XMS_ITS | Encounter Summary ---
Author Organization [facility] Address [facility] [place] [address] Care Team Providers Care Press Department Manager Name Role Phone Juan Dempsey MD Primary Care Provider Encounter Details Date Type Department Care Team (Late st Contact Info) Description 02/05/2022 Abstract [place] [address] Ana Pringle MD [facility] [place] [address] Social History Tobacco Use Types Packs/Day Years [...] [facility] Hematology Oncology [address] [place] [address] 02/16/2024 10:20 AM EDT Hospital [place] [phone] Mitali Griffiths APRN [facility] DR HEMATOLOGY [place] [address] 02/16/2024 1:30 PM EDT Office Visit Hematology [place] [address] Albino Bartholomew MD [facility] DR HEMATOLOGY [place] [address] 04/17/2024 10:00 AM EST Office Visit Dermatology at [facility] [address] [place] [address] Oli Winter MD [address] [facility] [address] documented as of this encounter Visit Diagnoses Not on filedocumented in this encounter Care Teams Press Department Manager Relationship Specialty Start Date End Date Juan Dempsey MD [address] [place] [address] PCP - General Emergency Medicine 08/20/21 documented as of this encounter
--- OUTSIDE RECORDS SUMMARY | 2024-02-03 16:56 | XMS_ITS | Encounter Summary ---
Author Organization [facility] Address [facility] [place] [address] Care Team Providers Care Medical Nurse Name Role Phone Juan Dempsey MD Primary Care Provider [phone] Encounter Details Date Type Department Care Team (Late st Contact Info) Description 02/25/2022 Telephone Hematology [place] [address] Daxa Arriola RN Social History [...] Telephone Encounter - Daxa Arriola RN - 02/25/2022 10:10 AM EDT Message received from Dr. Bartholomew: Nursing: Start Cabometyx 60 mg a day, please call in 1 week after to check on well being and GI toxicity. Call placed to pt to discuss above. Pt reports that Cabometyx should arrive tomorrow in the mail. Pt verbalizes understanding to call clinic once received. Pt returned call. Oral Chemotherapy Follow-up Note 02/26/2022 Cristofer Tenorio, 1955 Assessment of self-administration of oral chemotherapy is performed via phone call with patient. The patient: ?? filled the prescription at Home pharmacy and will start to take this medication on 02/26. ?? read back the name and strength of the oral chemotherapy from the label, including the instructions for use as follows: Cabometyx 60 mg 1 tablet by mouth daily. Take on an empty stomach. hour before or 2 hours after eating ?? was able to repeat directions for use in his/her own words and demonstrated understanding of theregimen, including safe handling of oral chemotherapy and its side effects. ?? did not have further questions or problems regarding the oral chemotherapy. ?? does not require further assistance in order to comply with oral chemotherapy. ?? was reminded to call the oncology clinic with any concerns or questions 24 hours a day / 7 days a week and contact information was reviewed. documented in this encounter Plan of Treatment Upcoming Encounters Date Type Department Care Team (Late st Contact Info) Description 02/16/2024 9:15 AM EDT Laboratory Appointment Lab at [facility] Hematology Oncology [address] [place] [address] 02/16/2024 10:20 AM EDT Hospital [place] [phone] Mitali Griffiths APRN [facility] DR [place]AT[place] [address] 02/16/2024 1:30 PM EDT Office Visit Hematology [place] [address] Albino Bartholomew MD [facility] DR [place] [address] 04/17/2024 10:00 AM EST Office Visit Dermatology at [facility] [address] [place] [address] Oli Winter MD [address] [facility] [place] [address] documented as of this encounter Visit Diagnoses Not on filedocumented in this encounter Care Teams Medical Nurse Relationship Specialty Start Date End Date Juan Dempsey MD [address] [place] [address] PCP - General Emergency Medicine 08/20/21 documented as of this encounter
--- OUTSIDE RECORDS SUMMARY | 2024-02-03 16:56 | XMS_ITS | Encounter Summary ---
Author Organization [facility] [place] [address] Care Team Providers Care Credit Or Loans Officer Name Role Phone Juan Dempsey MD Primary Care Provider [phone] Reason for Referral * Diagnostic Test (Routine) - Closed Specialty Diagnoses / Procedures Referred By Contac t Referred To Contact Radiology Diagnoses Renal cell carcinoma, unspecified laterality Procedures MRI Abdomen wwo Contrast (Generic) Albino Bartholomew MD [facility] DR [place] [address] [place] [address] Referral ID Status Reason Start Date Expiration Date V isits Requested Visits Authorized [id number] Closed Specialty Service Requested 01/16/2022 07/17/2023 1 1 Reason for Visit * Diagnostic Test (Routine) - Closed Specialty Diagnoses / Procedures Referred By Contac t Referred To Contact Radiology Diagnoses Renal cell carcinoma, unspecified laterality Procedures MRI Abdomen wwo Contrast (Generic) Albino Bartholomew MD [facility] [place] [address] [place] [address] Referral ID Status Reason Start Date Expiration Date V isits Requested Visits Authorized [id number] Closed Specialty Service Requested 01/16/2022 07/17/2023 1 1 Encounter Details Date Type Department Care Team (Latest Contact Info) Description 02/06/2022 5:26 PM EDT - 02/06/2022 11:59 PM EDT Hospital Encounter MRI at [facility] [place] [address] Albino Bartholomew MD [facility] HEMATOLOGY [place] [address] Renal cell carcinoma, unspecified laterality Discharge Disposition: Home Social History [...] Sig Dispensed Refills Start Date End Date Eliquis 5 mg Tablet Take 5 mg [...] [facility] Hematology Oncology [address] [place] [address] 02/16/2024 10:20 AM EDT Hospital [place] [phone] Mitali Griffiths APRN [facility] DR [place]AT[place] [address] 02/16/2024 1:30 PM EDT Office Visit Hematology [place] [phone] Albino Bartholomew MD [facility] DR [place] [address] 04/17/2024 10:00 AM EST Office Visit Dermatology at [facility] [address] [place] [phone] Oli Winter MD [address] [facility] [place] [address] documented as of this encounter Procedures Procedure Name Priority Date/Time Associated Diagnosis Comments MRI ABDOMEN WWO CONTRAST Routine 02/06/2022 6:41 PM EDT Renal cell carcinoma, unspecified laterality documented in this encounter Results * MRI Abdomen wwo Contrast (Generic) (02/06/2022 6:41 PM EDT) Anatomical Region Laterality Modality Abdomen Magnetic Resonan ce Impressions 02/09/2022 8:55 AM EDT Stable exam. Stable post LEFT nephrectomy surgical bed, without complication or local tumor recurrence. No evidence of abdominal metastasis. Thank you for letting us participate in the care of this patient. ??If you are a health care provider and have any questions regarding this report, please contact the number below. ??For patients who have questions please contact the health ambulatory care coordinator that requested your imaging first. ? Narrative 02/09/2022 8:55 AM EDT EXAMINATION: MRI ABDOMEN WWO CONTRAST (GENERIC) EXAMINATION: MRI ABDOMEN WWO CONTRAST (GENERIC) CLINICAL HISTORY: Metastatic disease evaluation; Kidney cancer, recurrence, follow up Restaging of renal cell carcinoma TECHNIQUE: MRI of the abdomen was performed with images obtained prior to and following the intravenous administration of 21ml Dotarem. COMPARISON: 11/07/2021 FINDINGS: Lower chest: No pleural effusions Liver: Normal size and signal intensity. No lesions. Bile ducts: Nondilated. Gallbladder: No gallstones. Normal caliber wall. Pancreas: Normal. Spleen: Normal. Adrenals: Normal. Kidneys: Stable post LEFT nephrectomy surgical bed. No complication or local tumor recurrence. Stable, scattered small cysts in the RIGHT kidney. No RIGHT renal masses. No RIGHT renal collecting system obstruction. Vasculature: No aneurysm. Lymph nodes: No enlarged lymph nodes. Bowel: Nondilated, no inflammatory changes. Peritoneum and mesentery: No ascites or loculated fluid collection. Marrow Signal: Normal. Procedure Note German Morel MD - 02/09/2022 EXAMINATION: MRI ABDOMEN WWO CONTRAST (GENERIC) EXAMINATION: MRI ABDOMEN WWO CONTRAST (GENERIC) CLINICAL HISTORY: Metastatic disease evaluation; Kidney cancer,recurrence, follow up Restaging of renal cell carcinoma TECHNIQUE: MRI of the abdomen was performed with images obtained prior toand following the intravenous administration of 21ml Dotarem. COMPARISON: 11/07/2021 FINDINGS: Lower chest: No pleural effusions Liver: Normal size and signal intensity. No lesions. Bile ducts: Nondilated. Gallbladder: No gallstones. Normal caliber wall. Pancreas: Normal. Spleen: Normal. Adrenals: Normal. Kidneys: Stable post LEFT nephrectomy surgical bed. No complication orlocal tumor recurrence. Stable, scattered small cysts in the RIGHT kidney. NoRIGHT renal masses. No RIGHT renal collecting system obstruction. Vasculature: No aneurysm. Lymph nodes: No enlarged lymph nodes. Bowel: Nondilated, no inflammatory changes. Peritoneum and mesentery: No ascites or loculated fluid collection. Marrow Signal: Normal. IMPRESSION Stable exam. Stable post LEFT nephrectomy surgical bed, withoutcomplication or local tumor recurrence. No evidence of abdominal metastasis. Thank you for letting us participate in the care of this patient. If youare a health care provider and have any questions regarding this report,please contact the number below. For patients who have questions please contactthe health ambulatory care coordinator that requested your imaging first. Albino Bartholomew MD IMG MRI ORDERABLES documented in this encounter Visit Diagnoses Diagnosis Renal cell carcinoma, unspecified laterality documented in this encounter Care Teams Credit Or Loans Officer Relationship Specialty Start Date End Date Juan Dempsey MD [address] [place] [address] PCP - General Emergency Medicine 08/20/21 documented as of this encounter
--- OUTSIDE RECORDS SUMMARY | 2024-02-03 16:56 | XMS_ITS | Encounter Summary ---
Author Organization [facility] Address [facility] [place] [address] Care Team Providers Care Clinical Practitioner Name Role Phone Juan Dempsey MD Primary Care Provider [phone] Encounter Details Date Type Department Care Team (Latest Contact Info) Description 02/04/2022 11:00 AM EDT - 02/04/2022 12:59 PM EDT Hospital Encounter XRay at [address] [place] [address] Rich Baldwin MD [facility] [place] [address] Discharge Disposition: Home Social History Tobacco Use [...] [facility] Hematology Oncology [address] [place] [address] 02/16/2024 10:20 AM EDT Hospital [place] [address] Mitali Griffiths APRN [facility] DR HEMATOLOGY [place] [address] 02/16/2024 1:30 PM EDT Office Visit Hematology [place] [address] Albino Bartholomew MD [facility] HEMATOLOGY [place] [address] 04/17/2024 10:00 AM EST Office Visit Dermatology at [facility] [address] [place] [address] Oli Winter MD [address] [facility] [address] documented as of this encounter Procedures Procedure Name Priority Date/Time Associated Diagnosis Comments XR CHEST ONE VIEW Routine 02/04/2022 11: 30 AM EDT documented in this encounter Results * XR Chest One View (02/04/2022 11:30 AM EDT) Anatomical Region Laterality Modality Chest N/A Digital Radiogra phy Impressions 02/04/2022 11:40 AM EDT FINDINGS/IMPRESSION: Status post interval left lung biopsy. No pneumothorax nor other acute abnormality. Thank you for letting us participate in the care of this patient. ??If you are a health care provider and have any questions regarding this report, please contact the number below. ??For patients who have questions please contact the health laboratory animal caretaker that requested your imaging first. ? Narrative 02/04/2022 11:40 AM EDT EXAMINATION: XR CHEST ONE VIEW CLINICAL HISTORY: s/p L lung biopsy, no immediate ptx TECHNIQUE: 2 view of the chest COMPARISON: CT biopsy images from earlier today and chest CT 01/15/2022 as well as chest x-ray 10/20/2021 Procedure Note Myron Alfaro MD - 02/04/2022 EXAMINATION: XR CHEST ONE VIEW CLINICAL HISTORY: s/p L lung biopsy, no immediate ptx TECHNIQUE: 2 view of the chest COMPARISON: CT biopsy images from earlier today and chest CT 01/15/2022 as well aschest x-ray 10/20/2021 IMPRESSION FINDINGS/IMPRESSION: Status post interval left lung biopsy. No pneumothorax nor other acute abnormality. Thank you for letting us participate in the care of this patient. If youare a health care provider and have any questions regarding this report,please contact the number below. For patients who have questions please contactthe health laboratory animal caretaker that requested your imaging first. Rich Baldwin MD IMG DX ORDERABLES documented in this encounter Visit Diagnoses Not on filedocumented in this encounter Care Teams Clinical Practitioner Relationship Specialty Start Date End Date Juan Dempsey MD [address] [place] [address] PCP - General Emergency Medicine 08/20/21 documented as of this encounter
--- OUTSIDE RECORDS SUMMARY | 2024-02-03 16:56 | XMS_ITS | Encounter Summary ---
Author Organization [facility] Address [facility] [place] [address] Care Team Providers Care Beading Machine Operator Name Role Phone Juan Dempsey MD Primary Care Provider [phone] Reason for Visit * Reason Comments Patient Education Encounter Details Date Type Department Care Team (Late st Contact Info) Description 02/19/2022 Specialty [place] [address] Sharda Lee, [facility] Social History Tobacco Use Types Packs/Day Years [...] Progress Notes * Sharda Lee RPH - 02/19/2022 9:31 AM EDT Specialty Pharmacy Consultation; Sharda Lee RPH Comprehensive Medication Management (CMM) Cristofer Tenorio Diagnosis: RCC Therapy Start Date: 02/26/22 Contact in person or via telephone: phone Mr. Cristofer Tenorio is a 67 y.o. (1955) male who was called today. I spoke with the patient regarding their specialty medication Cabometyx and a review of the drug therapy was performed. The medication was filled as scheduled, and all related questions and concerns were addressed. The specialty pharmacy staff will follow up with the patient 5-7 days prior to next refill. Is the patient willing to proceed with the Clinical Assessment? Yes Summary and Recommendations: The patient was feeling generally well today and ready to start his new oral chemotherapy. We reviewed possible side effects such as nausea and rash. Med list reviewed with no major interactions identified. Eliquis may increase the bleeding risk along with Cabometyx and we discussed watching for signs of a major bleed. The patient is aware of the importance of lab follow up and infection prevention precautions as well as adherence to treatment. The patient will notify the clinic of any upcomingprocedures or new medications and OTC products. Resources are available to the patient from the cancer center such as sole rounder consultation or social media project manager. Administration on an empty stomach, allergies, dosage, safe storage reviewed. The pharmacy's contact information and operating hours with on-call services were given to the patient both verbally and in writing. Clinic follow-up needed: No Allergies and Drug intolerance: Allergies Allergen Reactions ??? Grass Pollen-Orchardgrass, Standard ??? Peanut Problem List: Patient Active Problem List Diagnosis Code ??? Renal mass N28.89 ??? Renal cell carcinoma C64.9 ??? Medication management Z79.899 Special Dietary or Hydration Requirements: No Medication reconciliation discrepancies (compared to [facility] med list): None Medication List: Current Outpatient Medications Medication Sig Dispense Refill ??? meclizine (Antivert) [...] Currently not taking No current facility-administered medications for this visit. Most Recent Vitals: Ht Readings from Last 1 Encounters: 02/13/22 177.6 cm (5' 9.92) Wt Readings from Last 3 Encounters: 02/13/22 108.6 kg (239 lb 6.7 oz) 11/26/21 101.6 kg (224 lb) 11/26/21 101.6 kg (224 lb) Temp Readings from Last 3 Encounters: 02/13/22 37.9 ??C (100.2 ??F) (Temporal) 02/04/22 36.3 ??C (97.4 ??F) (Temporal) 11/26/21 36.7 ??C (98.1 ??F) (Temporal) BP Readings from Last 3 Encounters: 02/13/22 160/81 02/04/22 160/69 11/26/21 144/73 Pulse Readings from Last 3 Encounters: 02/13/22 91 02/04/22 86 11/26/21 59 There is no height or weight on file to calculate BMI. Pertinent Lab values: Lab Results Component Value Date NA 141 02/04/2022 K 4.0 02/04/2022 CL 105 02/04/2022 CO2 29 02/04/2022 BUN 22 (H) 02/04/2022 CREATININE 1.20 02/04/2022 GLUCOSE 104 02/04/2022 CALCIUM 9.3 02/04/2022 Lab Results Component Value Date ALT 24 02/04/2022 AST 18 02/04/2022 ALKPHOS 92 02/04/2022 BILITOT 0.3 02/04/2022 BILIDIR 0.1 02/04/2022 ALBUMIN 4.1 02/04/2022 PROT 6.7 02/04/2022 Lab Results Component Value Date WBC 10.3 (H) 02/04/2022 HGB 14.5 02/04/2022 HCT 44.6 02/04/2022 MCV 87.6 02/04/2022 PLATELET 189 02/04/2022 PLATELET 189 02/04/2022 No results found for: HA1C Immunization History Administered Date(s) Administered ??? Moderna Covid-19 (Cna Gna 100mcg) Vaccine 07/03/2020, 07/31/2020, 02/24/2021 ??? Zoster, Recombinant 03/16/2019 Assessment and Recommendations: Patient Counseling Patient informed of specialty services: Yes Patient accepted offer to chief counsel: adherence/missed doses, cost of medications/cost implications, doses and administration, possible drug/OTC drug and food interactions, possible adverse side effects and management, pharmacy contact information, lab monitoring/follow up, possible drug/Rx drug interactions, safe handling, storage, and disposal Medication Management Summary Topics discussed: medication safety precautions education provided, safe handling, storage, and disposal discussed, adherence and missed doses discussed Number of adverse drug events identified: 0 Time spent: 16-30 min Treatment Outcomes 02/26/2022 1420 Disease progression: Stable Patient Overall Status: Stable [...] Social Assessment: Does patient have a primary cardiac care unit nurse: No Does patient have an emergency contact on file: Yes Does patient need referral to social media project manager: No Does patient need referral to advocacy [...] Patient provided welcome packet/rights and responsibilities: Yes Specialty Med Adherence Patient Demonstrates Understanding of Importance of Adherence: Yes Educational Information or Adherence Tools Provided: Yes Patient Reported X Missed Doses in the Last Month: 0 Provider-Estimated Medication Adherence Level: 90-100% Adherence Tools Used: medication list, directed education, pill box Therapy Assessment: Current Medication Dosing/Route/Frequency: Cabometyx 60mg PO QD Appropriate therapy: Yes Patient's Problems/Needs: The patient has hypertension and needs to monitor their blood pressure after initiation of chemotherapy and ongoing Expected outcome: Slow progression of disease as assessed by scans in clinic every 3 to 6 months Monitoring requirements for prescribed medication: CBC, CMP, CT or MRI Patient Goals: Hematology/Oncology related goals may include remission, palliative or hospice care, a bridge to future surgery, transplant, and radiation or infusion therapy. Goals ??? Home Medication Compliance and Understanding Remain 90% or better adherent to oral chemotherapy without significant rash or nausea as assessed by patient reported adverse events at each clinical follow up Care Plan Reviewed and Approved by both Pharmacist and Patient: Yes Interventions (if applicable): No Patient Status and Counseling: Is the patient experiencing pain? No Relevant monitoring results reviewed for bone marrow suppression, opportunistic infection, tumor lysis syndrome, metabolic disturbance and end organ dysfunction: Yes Pharmacist follow-up needed: No Patient understands any changes to current drug regimen were made at the appointment and that [facility] is providing recommendations (summary located at top of note) for provider review and follow up. Sharda Lee RPH 02/26/22 2:21 PM documented in this encounter Plan of Treatment Upcoming Encounters Date Type Department Care Team (Late st Contact Info) Description 02/16/2024 9:15 AM EDT Laboratory Appointment [place] [facility] [address] [place] [id number] 02/16/2024 10:20 AM EDT Hospital [place] [address] Mitali Griffiths APRN [facility] [place] [address] 02/16/2024 1:30 PM EDT Office Visit Hematology and Oncology at [facility] [place], operated by [facility] [place] [address] Albino Bartholomew MD [facility] [place] [address] 04/17/2024 10:00 AM EST Office Visit Dermatology at [facility] [address] [place] [address] Oli Winter MD [address] [facility] [place] [address] documented as of this encounter Visit Diagnoses Not on filedocumented in this encounter Care Teams Beading Machine Operator Relationship Specialty Start Date End Date Juan Dempsey MD [address] [place] [id number] PCP - General Emergency Medicine 08/20/21 documented as of this encounter
--- OUTSIDE RECORDS SUMMARY | 2024-02-03 16:56 | XMS_ITS | Encounter Summary ---
Author Organization [facility] [place] [address] Care Team Providers Care Energy Technician Name Role Phone Juan Dempsey MD Primary Care Provider [phone] Reason for Referral * Diagnostic Test (Routine) - Closed Specialty Diagnoses / Procedures Referred By Contac t Referred To Contact Radiology Diagnoses Renal cell carcinoma, unspecified laterality Multiple lung nodules on CT Procedures CT Guided Biopsy Lung Albino Bartholomew MD [facility] [address] [place] [address] [facility] [place] [address] Referral ID Status Reason Start Date Expiration Date V isits Requested Visits Authorized [id number] Closed Specialty Service Requested 01/16/2022 07/17/2023 1 1 Reason for Visit * Diagnostic Test (Routine) - Closed Specialty Diagnoses / Procedures Referred By Contac t Referred To Contact Radiology Diagnoses Renal cell carcinoma, unspecified laterality Multiple lung nodules on CT Procedures CT Guided Biopsy Lung Albino Bartholomew MD [facility] [place] [address] [place] [address] Referral ID Status Reason Start Date Expiration Date V isits Requested Visits Authorized [id number] Closed Specialty Service Requested 01/16/2022 07/17/2023 1 1 Encounter Details Date Type Department Care Team (Latest Contact Info) Description 02/04/2022 8:47 AM EDT - 02/04/2022 10:59 AM EDT Hospital Encounter CT Scan at [facility] [place] [address] Albino Bartholomew MD [facility] [address] [place]ATOLOG[place] [address] Pre-op testing; Renal cell carcinoma, unspecified laterality; Multiple lung nodules on CT [...] Sign Reading Time Taken Comments Blood Pressure 191/102 02/04/2022 10:40 AM EDT Pulse 86 02/04/2022 10:40 AM EDT Temperature 36.9 ??C (98.5 ??F) 02/04/2022 9:21 AM ED T Respiratory Rate 16 02/04/2022 10:40 AM EDT Oxygen Saturation 93% 02/04/2022 10:40 AM EDT Inhaled Oxygen Concentration - - Weight - - Height - - Body Mass Index - - documented in this encounter Discharge Instructions * Discharge Instructions* John Elizalde RN - 02/04/2022 11:19 AM EDT [facility] Vascular and Interventional Radiology Biopsy Discharge Instructions Liver biopsy: call your doctor immediately if you develop a sudden onset of weakness, increased pain or swelling at the biopsy site or heavy bleeding at the biopsy site. Lung biopsy: coughing up a little blood is common during the next 24 hours. If large blood clots come up, or if the bleeding gets worse, you should contact us or your doctor immediately. The most common complication is collapse of the lung. The symptoms of lung collapse are increasing pain on breathing, often extending into the shoulder on the side of the biopsy, and increasing difficulty breathing. If these symptoms occur after you leave the hospital, have someone drive you to the nearest Emergency Department as it must be treated promptly or call 911. Activity And Diet: Go home and rest quietly for the remainder of the day. You may resume your normal activities tomorrow. Resume your usual diet after the procedure. Do not drive, sign any important/legal documents, or make any important decisions for 24 hours following sedation medications. When to call your healthcare provider: If you see any redness, swelling or drainage at the biopsy site. If you develop chills. If you have a fever greater than or equal to 101 degrees Fahrenheit. If you develop pain around the biopsy site. Bandage: Check the dressing/bandaid throughout the day for an increase in drainage. Keep the biopsy site dryfor 24 hours. Replace the bandaid as needed. You may shower 24 hours after the biopsy. Medication: DO NOT take aspirin-containing products, ibuprofen, or blood-thinning medication for the next 24 hours unless your clinician says you may do so. Generally you may use acetaminophen as needed for discomfort unless you have liver disease and are instructed not to take acetaminophen. Biopsy Results The results of your biopsy should be available within 5 business days and will be reported to you by your primary healthcare recruiter or the clinician who ordered the biopsy. Please do not call us for results as we will not have them. If you have not been contacted by your clinician within 5 business days you should call that officefor further information. When to call the Interventional Radiology Department: Please call with any questions or concerns. If it is during regular office hours, please call [phone]. If it is after regular office hours, or on weekends or holidays, please call [phone] and ask to speak to the Admitting Representative inspection machine tender for Interventional Radiology. You have received medication during your procedure to help lessen anxiety and keep you comfortable.These medications affect judgement and reaction time. We recommend that you do not drive, operate equipment, sign any important documents, or smoke unattended for 24 hours following your procedure. Because of the sedation, be careful on stairs, as you may be unsteady on your feet. You may resume your regular diet as tolerated. IV site -- slight redness, or tenderness is normal, you can use a warm compress. If tenderness and redness increases or foul drainage occurs, please contact your M. D. Revised 02/16/19 documented in this encounter Medications at Time of Discharge [...] 02/11/2018 03/19/2022 documented as of this encounter Progress Notes * Sabi Merchant RN - 02/04/2022 10:17 AM EDT [facility] Name: RAYMUNDO TENORIO Date of : 1955 AGE: 66 y.o. [address]: [address] [place] [address] (home) Mobile: Telephone Information: Referring Provider: Albino Bartholomew REASON FOR VISIT: Order Questions Answers Where will study be performed? [facility] Radiology [120] Laterality Left Is the patient on anticoagulant / antiplatelet therapy ? DOAC (Direct Oral Anticoagulant) Is this biopsy due to suspicion for disease progression Yes Does the patient have any pertinent outside imaging? No Reason for exam and clinical history: Patient with history of renal cell carcinoma, going lung nodules suspicious for metastatic disease, needs histological confirmation. No data recorded Allergies Allergen Reactions ??? Grass Pollen-Orchardgrass, Standard ??? Peanut Pertinent PMH: Patient Active Problem List Diagnosis Code ??? Renal mass N28.89 ??? Renal cell carcinoma C64.9 ??? Medication management Z79.899 Date/Procedure Meds Given/Comments 02/04/22 CT Guided LLL lung Biopsy Fentanyl 100mcg IV, Versed 2mg IV BP 220/103 DR Baldwin is aware [address] % via stretcher. Onto table ProneBP elevated 220/[address] Baldwin is aware. All monitors, O2, safety strap in place. Meds per protocol. Laboratory Results: Lab Results Component Value Date INR 1.2 12/22/2021 Lab Results Component Value Date CREATININE 1.5 01/08/2022 Lab Results Component Value Date K 3.8 01/08/2022 Lab Results Component Value Date PLATELET 211 01/08/2022 documented in this encounter H&P Notes * Rah Parks PA - 02/04/2022 9:56 AM EDT Interventional Radiology Interval H&P: Procedure: Left lung biopsy Update to H&P: The patient's history and physical exam have been reviewed and completed. There has been NO interval change from that of the pre-procedural note done within the last 30 days. Thereis NO change in the procedural plan. Meds: Current medications reviewed. The patient held the following medications as instructed: apixaban Labs: Day of procedure labs reviewed with no change in plan. Physical Exam: General: Awake, alert, pleasant Cardiovascular: Regular, Normal Pulmonary: Breath sounds clear to auscultation The planned procedure (and sedation plan if appropriate), its benefits and risks, and alternatives were discussed with the patient. The patient consented to the procedure. The indications for the procedure are still present. Pre-sedation Assessment: Sedation Plan: moderate (conscious sedation) ASA: 2: Patient with mild systemic disease Mallampati: II: tonsillar pillars are blocked by the tongue Confirm NPO status: Yes History of anesthetic complications: No Current medications reviewed: Yes Allergies reviewed: Yes Source Note - John Paul Brenner MD - 01/19/2022 2:58 PM EDT Images from the original note were not included. FOCUSED H&P and PRE-PROCEDURE IR NOTE: PCP: Juan Dempsey MD Referring Physician: [place] Planned Procedure: CT-guided lung nodule biopsy Procedure Indication: Patient with history of renal cell carcinoma, new, enlarging lung nodules suspicious for metastatic disease, needs histological confirmation. Presenting Diagnosis/ Complaint: Raymundo Tenorio is a 66 y.o. 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 ?? The patient experienced several in Apr 2021; this prompted CT scan in May 2021 which revealed large left renal 04/2021 episodes of hematuria 05/2021 CT: Large left renal mass (16 x 14 x 14 cm) w/ invasion of ipsilateral renal vein. No adenopathy, bone lesions, or other sites CT chest : solitary 3mm nodule right apex. 06/23/21: L radical nephrectomy ??08/07/21 adjuvant pembrolizumab; d/c'd after 1 dose due to transaminitis 01/16/22: CT chest: enlarging nodules Past Medical/Surgical History: Patient Active Problem List Diagnosis Code ??? Renal mass N28.89 ??? Renal cell carcinoma C64.9 ??? Medication management Z79.899 LLE DVT : elequis Past Medical History: Diagnosis Date ??? Claudication lower left leg , due to achilles surgery 2000 ??? High blood pressure losartan 100mg ??? Hyperlipidemia atorvastatin 20mg ??? Renal cell carcinoma 07/16/2021 Past Surgical History: Procedure Laterality Date ??? ACHILLES TENDON SURGERY ??? HERNIA REPAIR Left inguinal ??? PRO COLONOSCOPY, DIAGNOSTIC N/A 10/02/2021 COLONOSCOPY, DIAGNOSTIC performed by Jordyn Merino MD at [facility] ENDOSCOPY ??? PRO CYSTOURETHROSCOPY N/A 06/23/2021 CYSTO, CYSTOURETHROSCOPY, DIAGNOSTIC (WRVU 2.23) performed by Jordan Hou MD at [facility] MAIN OR ??? PRO REMV KIDNEY, RADICAL Left 06/23/2021 @NEPHRECTOMY, RADICAL W\REG LYMPHADENECTOMY &\OR VENA CAVA THROMBECTOMY (WRVU 23.81) performed by Jordan Hou MD at [facility] MAIN OR Medications: Medication Sig ? ? budesonide EC (Entocort EC) 3 mg Capsule, Delayed & Ext.Release Take 3 capsules by mouth every morning. ??? Eliquis 5 mg Tablet TAKE TWO [...] mg by mouth daily. Currently not taking Allergies: Grass pollen-orchardgrass, standard and Peanut Social History and Habits: Social History Socioeconomic History ??? Marital status: Spouse name: Not on file ??? Number of children: Not on file ??? Years of education: Not on file ??? Highest education level: Not on file Occupational History ??? Not on file Tobacco Use ??? Smoking status: Never Smoker ??? Smokeless tobacco: Never Used Substance and Sexual Activity ??? Alcohol use: Never ??? Drug use: Never ??? Sexual activity: Not on file Other Topics Concern ??? Not on file Social History Narrative ??? Not on file Social Determinants of Health Financial Resource Strain: Low Risk ??? Difficulty of Paying Living Expenses: Not very hard Food Insecurity: No Food Insecurity ??? Worried About Running Out of Food in the Last Year: Never true ??? Ran Out of Food in the Last Year: Never true Transportation Needs: No Transportation Needs ??? Lack of Transportation (Medical): No ??? Lack of Transportation (Non-Medical): No Physical Activity: Not on file Housing Stability: Low Risk ??? Unable to Pay for Housing in the Last Year: No ??? Number of Places Lived in the Last Year: 1 ??? Unstable Housing in the Last Year: No Significant Family History: Family History Problem Relation Age of Onset ??? Lymphoma Mother ??? Breast Cancer Mother ??? Pancreatic Cancer Brother Physical Exam: Pending Labs: Lab Results Component Value Date WBC 11.33 01/08/2022 ANC 7.63 (A) 09/24/2021 HCT 43.9 01/08/2022 PLATELET 211 01/08/2022 INR 1.2 12/22/2021 BUN 32 01/08/2022 CREATININE 1.5 01/08/2022 ALKPHOS 89 01/08/2022 AST 14 01/08/2022 ALBUMIN 3.2 01/08/2022 BILIDIR 0.1 11/26/2021 BILITOT 0.3 01/08/2022 ALT 35 01/08/2022 PROT 7.0 01/08/2022 Pathology: 10/02/21 (colonoscopy/biopsy): DIAGNOSIS A - Transverse colon polyp, resection: - ??Tubular adenoma. ?? 06/03/21: Tumor Focality: ??Unifocal ?Tumor Site: ??Middle; ??Lower pole ?Tumor Size: ??17 Centimeters (cm) ?Histologic Type: ??Clear cell renal cell carcinoma ? Histologic Grade (WHO / ISUP): ??G4 ?Tumor Extent: ??Extends into perinephric tissue (beyond renal capsule); ?Extends into renal sinus; ??Extends into major vein (renal vein or its segmental branches, inferior vena cava); ??Extends into [...] (pT): ??pT3a ?Regional Lymph Nodes (pN): ??pN1 Prior Imagin07/23/21 Chest: CT chest 01/15/22: Pulmonary parenchyma: Interval increase in size of two pulmonary nodules: * 10 mm anterior right upper lobe pulmonary nodule (series 4 image 62), previously 6 mm. * 14 mm left lower lobe pulmonary nodule (series 4 image 249), previously 8 mm. New 3 mm right upper lobe pulmonary nodule (series 4 image 130). ??Two new 3 mm right upper lobe subpleural nodules (series 4 image 107 and 116). ??Stable tiny right apical nodule. ?? Airways: Central airways are patent. Pleura: No pleural effusion or pneumothorax. Lymph nodes: No enlarged lymph nodes. Heart, pericardium, and great vessels: The heart is normal insize and without pericardial effusion. Mild coronary artery and aortic atherosclerotic calcifications. 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 Lower neck: No significantfindings. Upper abdomen: Status post left nephrectomy. Body wall soft tissues: No significant findings. Assessment: 66 yo gentleman with 8 m from resection of renal cell carcinoma with interval growth oflung nodule and new nodules. Plan: Biopsy lung nodule to evaluate for progression of disease. Labs: [per IR/CT protocol] Prophylactic antibiotic: [none] Medications to discontinue (and when): Hold elequis x 3 d Patient Position: prone Access site: Left posterior axillary line Sedation Plan : Mod Conscious Discharge Plan: home documented in this encounter Plan of Treatment Upcoming Encounters Date Type Department Care Team (Late st Contact Info) Description 02/16/2024 9:15 AM EDT Laboratory Appointment Lab at [facility] Hematology Oncology [address] [place] [address] 02/16/2024 10:20 AM EDT Hospital [place] [address] Mitali Griffiths APRN [facility] [address] [place]AT[place] [address] 02/16/2024 1:30 PM EDT Office Visit Hematology and Oncology at [facility] [place] [address] Albino Bartholomew MD [facility] [address] [place] [address] 04/17/2024 10:00 AM EST Office Visit Dermatology at [facility] [address] [place] [address] Oli Winter MD [address] [facility] [address] documented as of this encounter Procedures Procedure Name Priority Date/Time Associated Diagnosis Comments XR CHEST ONE VIEW Routine 02/04/2022 1:0 5 PM EDT XR CHEST ONE VIEW Routine 02/04/2022 11: [address] GUIDED BIOPSY LUNG Routine 02/04/2022 10:51 AM EDT Renal cell carcinoma, unspecified laterality Multiple lung nodules on CT SURGICAL PATHOLOGY REPORT Routine 02/04/2022 10:40 AM EDT SPECIMEN TO PATHOLOGY Routine 02/04/2022 8:09 AM EDT documented in this encounter Results * XR Chest One View (02/04/2022 1:05 PM EDT) Anatomical Region Laterality Modality Chest N/A Digital Radiogra phy Impressions 02/04/2022 3:02 PM EDT 1. ??No pneumothorax. 2. ??Improved aeration. Mild bibasilar atelectasis. I have personally reviewed the image(s) and the resident's interpretation and agree with the findings, Ragini Molina MD at 02/04/2022 3:02 PM Thank you for letting us participate in the care of this patient. ??If you are a health care provider and have any questions regarding this report, please contact the number below. ??For patients who have questions please contact the health care rep that requested your imaging first. ? Electronically signed by: Ragini Molina MD, [facility] ([phone]), at 02/04/2022 3:02 PM Narrative 02/04/2022 3:02 PM EDT EXAMINATION: XR CHEST ONE VIEW CLINICAL HISTORY: 2 hour post L lung biopsy TECHNIQUE: 1 view of the chest PA COMPARISON: 02/04/2022. FINDINGS: Improved aeration of bilateral lungs. Improvement in bibasilar atelectasis. No pneumothorax or pleural effusion. Borderline cardiomegaly. Normal pulmonary vasculature. No interval osseous changes. Procedure Note Ragini aSntana MD - 02/04/2022 EXAMINATION: XR CHEST ONE VIEW CLINICAL HISTORY: 2 hour post L lung biopsy TECHNIQUE: 1 view of the chest PA COMPARISON: 02/04/2022. FINDINGS: Improved aeration of bilateral lungs. Improvement in bibasilaratelectasis. No pneumothorax or pleural effusion. Borderline cardiomegaly. Normalpulmonary vasculature. No interval osseous changes. IMPRESSION 1. No pneumothorax. 2. Improved aeration. Mild bibasilar atelectasis. I have personally reviewed the image(s) and the resident's interpretationand agree with the findings, Ragini Molina MD at 02/04/2022 3:02PM Thank you for letting us participate in the care of this patient. If youare a health care provider and have any questions regarding this report,please contact the number below. For patients who have questions please contactthe health care rep that requested your imaging first. Rich Baldwin MD IMG DX ORDERABLES * XR Chest One View (02/04/2022 11:30 [...] have questions please contact the health care rep that requested your imaging first. ? Electronically signed by: Myron Alfaro MD, [facility] ([phone]), at 02/04/2022 11:40 AM Narrative 02/04/2022 11:40 AM EDT EXAMINATION: XR [...] who have questions please contactthe health care rep that requested your imaging first. Electronically signed by: Myron Alfaro MD, [facility]([phone]), at 02/04/2022 11:40 AM Rich Baldwin MD IMG DX ORDERABLES * CT Guided Biopsy Lung (02/04/2022 10:51 AM EDT) Anatomical Region Laterality Modality Lung Computed Tomogra phy Impressions 02/04/2022 10:54 AM EDT Impression: Technically successful CT-guided core needle biopsy of the left lung. Training And Development Officer(s): Attending: Rich Baldwin MD Procedure/Teaching Attestation: ??I performed the procedure. Moderate Sedation Attestation: I was present during the intra-service time as documented by the IR nurse. Thank you for letting us participate in the care of this patient. ??If you are a health care provider and have any questions regarding this report, please contact the number below. ??For patients who have questions please contact the health care rep that requested your imaging first. ? Electronically signed by: Rich Baldwin MD, [facility] ([phone]), at 02/04/2022 10:54 AM Narrative 02/04/2022 10:54 AM EDT RADIOLOGY PROCEDURE NOTE Procedure: CT-guided lung biopsy. Indication for Procedure: Patient with history of renal cell carcinoma, going lung nodules suspicious for metastatic disease, needs histological confirmation.. Consent: After discussing the risks (including infection, hemorrhage, damage to surrounding structures, respiratory depression, and pneumothorax) and benefits, the patient consented to the procedure. Method of Sedation: Due to the painful nature of the procedure, patient received split doses of intravenous fentanyl and midazolam from the IR nurse while pulse, pressure, and oxygen saturation were continuously monitored. 1% lidocaine was used for local anesthesia. Technique: Prior to beginning the procedure, a standard time out Moment of Truth was performed. The patient was positioned prone on the CT table. ??An initial planning non-contrast localizing CT scan of the chest was obtained. The site for biopsy was identified and marked on the skin with the assistance of the CT laser lights. The skin was prepped and draped in the usual sterile fashion. Local anesthesia provided with 1% lidocaine. A 19 ga introducer needle was directed to the target lesion with the assistance of CT fluoroscopy. Coaxially, 3 core biopsies were taken. Through the introducer needle, the [employer] pleural plug was deployed. ??The needle was removed. Petroleum gauze and sterile gauze dressing was applied. A post-procedure noncontrast CT scan was obtained. Medications: Please see EMR Contrast: None EBL: <5 cc Complications: No immediate Specimens: 3 core biopsy samples of the largest left lower lobe nodule. Findings: Pre-procedure planning CT exam of the chest showed small bilateral pulmonary nodules, largest in the basal left lower lobe. Intra-procedural CT showed the biopsy needle in the target lesion. Post-biopsy CT showed no pneumothorax. Small amount of perilesional hemorrhage. Procedure Note Rich Baldwin MD - 02/04/2022 RADIOLOGY PROCEDURE NOTE Procedure: CT-guided lung biopsy. Indication for Procedure: Patient with history of renal cell carcinoma,going lung nodules suspicious for metastatic disease, needs histological confirmation.. Consent: After discussing the risks (including infection, hemorrhage,damage to surrounding structures, respiratory depression, and pneumothorax) andbenefits, the patient consented to the procedure. Method of Sedation: Due to the painful nature of the procedure, patientreceived split doses of intravenous fentanyl and midazolam from the IR nurse whilepulse, pressure, and oxygen saturation were continuously monitored. 1% lidocainewas used for local anesthesia. Technique: Prior to beginning the procedure, a standard time out Momentof Truth was performed. The patient was positioned prone on the CT table.An initial planning non-contrast localizing CT scan of the chest wasobtained. The site for biopsy was identified and marked on the skin with the assistanceof the CT laser lights. The skin was prepped and draped in the usual sterilefashion. Local anesthesia provided with 1% lidocaine. A 19 ga introducer needlewas directed to the target lesion with the assistance of CT fluoroscopy.Coaxially, 3 core biopsies were taken. Through the introducer needle, the Biosentrypleural plug was deployed. The needle was removed. Petroleum gauze and sterilegauze dressing was applied. A post-procedure noncontrast CT scan was obtained. Medications: Please see EMR Contrast: None EBL: <5 cc Complications: No immediate Specimens: 3 core biopsy samples of the largest left lower lobe nodule. Findings: Pre-procedure planning CT exam of the chest showed smallbilateral pulmonary nodules, largest in the basal left lower lobe. Intra-proceduralCT showed the biopsy needle in the target lesion. Post-biopsy CT showed no pneumothorax. Small amount of perilesional hemorrhage. IMPRESSION Impression: Technically successful CT-guided core needle biopsy of theleft lung. Training And Development Officer(s): Attending: Rich Baldwin MD Procedure/Teaching Attestation: I performed the procedure. Moderate Sedation Attestation: I was present during the intra-service timeas documented by the IR nurse. Thank you for letting us participate in the care of this patient. If youare a health care provider and have any questions regarding this report,please contact the number below. For patients who have questions please contactthe health care rep that requested your imaging first. Electronically signed by: Rich Baldwin MD, [facility]([phone]), at 02/04/2022 10:54 AM Albino Bartholomew MD [facility] ORDERABLES * Surgical Pathology Report (02/04/2022 10:40 AM EDT) Final Diagnosis [id number] ? Location: [facility] The signing pathologist has (i) examined the relevant preparation(s) for the specimen(s) and (ii) rendered or confirmed the diagnosis(es). . ?Surgical Pathology DIAGNOSIS A - Lung, left, core biopsy: - Metastatic clear cell renal cell carcinoma. Electronically signed by: ?Danica Melissa MD Verified: ??02/10/2022 8:25 ?? Pathologist Performed at: ??-[facility] Dept. of Pathology, [place], [place] ADDITIONAL STUDIES Immunohistochemistry Studies: Formalin-fixed, paraffin-embedded tissue sections are studied using the polymer technique with appropriate positive and negative controls. ?These IHC studies provide the pathologist with adjunctive diagnostic information. Antibody specificity has been verified by testing antibodies on a series of in-house tissues with known immunohistochemical performance characteristics. The clinical interpretation of any antibody positive staining or its absence is evaluated within the context of clinical presentation, morphology, histopathological criteria and other diagnostic tests. Block ? Antibody ?Result (Positive/Negative) A1 ?PAX8 ? Positive A1 ?CA-IX ?Positive A1 ?TTF1 (Dako) ?Negative SPECIMEN(S) SUBMITTED A - Lung, left, core biopsy CLINICAL INFORMATION 66-year-old male 8 mo. from resection a renal cell carcinoma with interval growth of lung nodule and new nodules SPECIMEN PROCESSING A - Labeled/Fixative: Left lung, formalin. Quantity/Size: Single, 1.5 x 0.1 cm Tissue Description: Taylor-white needle core biopsy. Sections/Processing: Entirely submitted in 1 cassette labeled A1. ??sns 02/10/2022 8:25 AM EDT [facility] LUNG STRUCTURE / Unknown 02/04/2022 10:40 AM EDT 02/04/2022 10:40 AM EDT Albino Bartholomew MD PATHOLOGY/CYTOLOGY O RDERABLES Performing Organization Address City/State/[facility] Co de Phone Number [facility] [place] [address] * Specimen to Pathology (02/04/2022 8:09 AM EDT) AP Specimen 02/04/2022 8:09 AM EDT 02/04/2022 8:09 AM EDT Narrative [facility] - 02/04/2022 8:09 AM EDT Specimen requisition ordered. ??Separate Pathology report to follow Albino Bartholomew MD PATHOLOGY/CYTOLOGY O RDERABLES Performing Organization Address [facility] de Phone Number [facility] [place] [address] * Prothrombin Time (02/04/2022 7:52 AM EDT) Pathologist [facility] Prothrombin Time 10.9 9.4 - 12.5 sec [facility] International Normalization Ratio 1.0 [facility] Comment: An INR <2.0 indicates adequate procoagulant activity for hemostasis in most patients without underlying bleeding disorders, though the INR may not adequately reflect hemostatic capacity in patients with liver disease and synthetic impairment. The recommended target INR range for therapeutic anticoagulation is 2.0 ? 3.0 for most applications, though lower and higher ranges may be appropriate depending on clinical circumstances. Blood 02/04/2022 7:52 AM EDT 02/04/2022 7:58 AM EDT Narrative Resulting Agency Comment Spec In Lab Albino Bartholomew MD HEMATOLOGY ORDERABLE S Performing Organization Address [facility] Co de Phone Number [facility] [place] [place] [address] * Platelet count (02/04/2022 7:52 AM EDT) Platelet 189 145 - 357 x10(3)/mc L [facility] Immature Plt % 2.0 0.0 - 7.4 % [facility] Comment: Limitation of the Immature Platelet Fraction (IPF)-May be less reliable when the platelet count is less than 47z981/uL due to statistical imprecision. The IPF value provides an assessment of the Bone Marrow production status. ??It is useful in differentiating Thrombocytopenia caused by platelet destruction/consumption versus decreased production. It also helps to determine the imminent release of platelets and can be therefore a helpful parameter in Chemotherapy and Bone marrow transplant patients. ELEVATED IPF value: ?? When the bone marrow is in a state of over production such as when increased destruction and consumption are the underlying issue. ?? When the marrow is recovering post chemotherapy or bone marrow transplant. LOW to NORMAL IPF value: ?? When the bone marrow in not responding and is in a decreased state of production. References: [employer] The Clinical Value of the Immature Platelet Fraction (IPF) in Cell Recovery Document Number 10-1143 10/2010 [employer] The Role of the Immature Platelet Fraction (IPF) in the Differential Diagnosis of Thrombocytopenia, Document MKT-[id number] V009/11/13 P009/13 Blood 02/04/2022 7:52 AM EDT 02/04/2022 7:58 AM EDT Narrative Resulting Agency Comment Spec In Lab Albino Bartholomew MD HEMATOLOGY ORDERABLE S [facility] [place] [address] documented in this encounter Visit Diagnoses Diagnosis Pre-op testing Preoperative examination, unspecified Renal cell carcinoma, unspecified laterality Multiple lung nodules on CT documented in this encounter Administered Medications Inactive Administered Medications - up to 3 most recent administrations Medication Order MAR Action Action Date Dose Rate Site fentaNYL (pf) (50 mcg/mL) multi-dose injection 25-50 mcg 25-50 mcg, Intravenous, EVERY 3 MIN PRN, Starting on Wed02/04/22 at 0950, Until Wed02/04/22 at 1351, Pain, per unit protocol, For use in Interventional Radiology (IR) only for procedural sedation with direct provider supervision and verbal order. - Start dose: 50 mcg (reduce dose to 25 mcg if history of sedation sensitivity). - Titration dose: 25-50 mcg IV, (based on patient response) every 3 minutes PRN to maintain procedural pain less than 2 per Pain Scale. Maximum dose: 50 mcg/dose, 250 mcg/hour, Angio/IR (Intra-Procedure), Routine Given 02/04/2022 10:38 AM EDT 25 mcg Given 02/04/2022 10:30 AM EDT 25 mcg Given 02/04/2022 10:16 AM EDT 50 mcg lidocaine (Xylocaine) 1% (10 mg/mL) injection 10 mg 10 mg, Subcutaneous, ONCE, 1 dose, On Wed02/04/22 at 1015, For use in Interventional Radiology (IR) only for procedure with direct provider supervision and verbal order., Angio/IR (Intra-Procedure), Routine Given 02/04/2022 10:15 AM EDT 10 mg midazolam (pf) (Versed) (1 mg/mL) multi-dose injection 0.5-1 mg 0.5-1 mg, Intravenous, EVERY 3 MIN PRN, Starting on Wed02/04/22 at 0950, Until Wed02/04/22 at 1351, Sedation, For use in Interventional Radiology (IR) only for procedural sedation with direct provider supervision and verbal order. - Start dose: 1 mg (Reduce dose to 0.5 mg if history of sedation sensitivity). - Titration dose: 0.5 mg - 1 mg (based on patient response) every 3 minutes PRN to obtain RASS score of -3. Maximum dose: 1 mg/dose, 5 mg/hour., Angio/IR (Intra-Procedure), Routine Given 02/04/2022 10:38 AM EDT 0.5 mg Given 02/04/2022 10:30 AM EDT 0.5 mg Given 02/04/2022 10:16 AM EDT 1 mg documented in this encounter Care Teams Energy Technician Relationship Specialty Start Date End Date Juan Dempsey MD [address] [place] [address] PCP - General Emergency Medicine 08/20/21 documented as of this encounter
--- OUTSIDE RECORDS SUMMARY | 2024-02-03 16:56 | XMS_ITS | Encounter Summary ---
Author Organization [facility] Address [facility] [place] [address] Care Team Providers Care Milk Receiver Name Role Phone Juan Dempsey MD Primary Care Provider [phone] Encounter Details Date Type Department Care Team (Late st Contact Info) Description 01/19/2022 Notes [place] [id number] John Paul Brenner MD [facility] [place] [address] Social History Tobacco Use Types Packs/Day Years [...] as of this encounter Progress Notes * John Paul Brenner MD - 01/19/2022 2:58 [...] DIAGNOSTIC performed by Jordyn Merino MD at [facility] ENDOSCOPY ??? PRO CYSTOURETHROSCOPY N/A 06/23/2021 CYSTO, CYSTOURETHROSCOPY, DIAGNOSTIC (VU 2.23) performed by Jordan Hou MD at [facility] MAIN OR ??? PRO REMV KIDNEY, RADICAL Left 06/23/2021 @NEPHRECTOMY, RADICAL W\REG LYMPHADENECTOMY &\OR VENA CAVA [facility]Y [facility] performed by Jordan Hou MD at [facility] MAIN OR Medications: Medication Sig ? ? [...] [facility] Hematology Oncology [address] [place] [address] 02/16/2024 10:20 AM EDT Hospital [place] [phone] Mitali Griffiths APRN [facility] DR HEMATOLOGY [place] [address] 02/16/2024 1:30 PM EDT Office Visit Hematology [place] [address] Albino Bartholomew MD [facility] DR [place]EMATOLOG[place] [address] 04/17/2024 10:00 AM EST Office Visit Dermatology at [facility] [address] [place] [address] Oli Winter MD [address] [place] [address] documented as of this encounter Visit Diagnoses Not on filedocumented in this encounter Care Teams Milk Receiver Relationship Specialty Start Date End Date Juan Dempsey MD [address] [place] [address] PCP - General Emergency Medicine 08/20/21 documented as of this encounter
--- OUTSIDE RECORDS SUMMARY | 2024-02-03 16:56 | XMS_ITS | Encounter Summary ---
Author Organization [facility] Address [facility] [place] [address] Care Team Providers Care Oracle Database Administrator Name Role Phone Juan Dempsey MD Primary Care Provider [phone] Encounter Details Date Type Department Care Team (Late st Contact Info) Description 01/07/2022 Orders Only [place] [address] [facility] [place] [address] Drug-induced liver injury Social History Tobacco Use [facility] H[facility] On[facility] [address] [place] [address] 02/16/2024 10:20 AM EDT Hospital [place] [address] [facility] DR HEMATOLOGY [place] [address] 02/16/2024 1:30 PM EDT Office Visit Hematology [place] [phone] [facility] [place] [address] 04/17/2024 10:00 AM EST Office Visit Dermatology at [facility] [address] [place] [address] Oli Winter MD [address] [facility] [place] [address] documented as of this encounter Results * (ABNORMAL) Comprehensive metabolic panel (non-fasting) (02/04/2022 7:52 AM EDT) Glucose 104 65 - 199 mg/dL [facility] Comment:Diabetes: >=200 mg/d L plus symptoms Blood Urea Nitrogen 22(H) 10 - 20 mg/dL [facility] Creatinine 1.20 0.80 - 1.50 mg/dL [facility] Sodium 141 135 - 145 mmol/L [facility] Potassium 4.0 3.5 - 5.0 mmol/L [facility] Comment: Please note: ??Patients with WBC >100,000 may have falsely elevated Potassium levels. ??For accurate Potassium quantification in these patients send serum separator tube (gold top) for subsequent determinations. ??Contact the Clinical Chemistry Laboratory if there are any questions. Chloride 105 98 - 107 mmol/L [facility] Carbon Dioxide 29 22 - 31 mmol/L [facility] Anion Gap 7 5 - 15 mmol/L [facility] Calcium 9.3 8.5 - 10.5 mg/dL [facility] Protein, Total 6.7 6.1 - 8.0 g/dL [facility] Albumin 4.1 3.2 - 5.2 g/dL [facility] Aspartate Aminotransferase 18 0 - 39 unit/L [facility] Alanine Aminotransferase 24 0 - 55 unit/L [facility] Alkaline Phosphatase 92 40 - 130 unit/L [facility] Bilirubin, Total 0.3 0.2 - 1.3 mg/dL [facility] Est Glomerular Filtration Rate 67 >=60 mL/min/1. 73 m?? [facility] Comment: This patient's estimated GFR [...] and symptoms in addition to eGFR. Blood 02/04/2022 7:52 AM EDT 02/04/2022 7:58 AM EDT Narrative Resulting Agency Comment Spec In Lab Ana Pringle MD CHEMISTRY ORDERABLES [facility] [place] [address] documented in this encounter Visit Diagnoses Diagnosis Drug-induced liver injury documented in this encounter Care Teams Oracle Database Administrator Relationship Specialty Start Date End Date Juan Dempsey MD [address] [place] [address] PCP - General Emergency Medicine 08/20/21 documented as of this encounter
--- OUTSIDE RECORDS SUMMARY | 2024-02-03 16:56 | XMS_ITS | Encounter Summary ---
Author Organization [facility] Address [facility] [place] [address] Care Team Providers Care Dress Operator Name Role Phone Juan Dempsey MD Primary Care Provider [phone] Encounter Details Date Type Department Care Team (Late st Contact Info) Description 02/16/2022 Telephone Hematology [place] [address] Rose Mary Abarca TECHNICAL ILLUSTRATIONS MAP INKER ROOM Social History Tobacco Use Types Packs/Day [...] Encounter - Rose Mary Abarca RN - 02/16/2022 12:58 PM EDT Message received from banquet bartender: [phone] Got a call from [employer] Wednesday night saying that the PA for his new meds was denied. He wasconfused because they said medicare, and he has BCBS Per demographics pt has a Managed Medicare BCBS Policy, per Specialty Pharmacy note insurance is [employer] [facility]. Spoke w/ pt, all his questions answered to his apparent satisfaction. He is aware clinic will likely appeal denial. documented in this encounter Plan of Treatment Upcoming Encounters Date Type Department Care Team (Late st Contact Info) Description 02/16/2024 9:15 AM EDT Laboratory Appointment Lab at [facility] [place] On[place] [address] [place] [address] 02/16/2024 10:20 AM EDT Hospital [place] [address] [facility] [place] [address] 02/16/2024 1:30 PM EDT Office Visit Hematology [place] [address] [facility] DR [place] [address] 04/17/2024 10:00 AM EST Office Visit Dermatology at [facility] [address] [place] [address] Oli Winter MD [address] [facility] [place] [address] documented as of this encounter Visit Diagnoses Not on filedocumented in this encounter Care Teams Dress Operator Relationship Specialty Start Date End Date Juan Dempsey MD [address] [place] [address] PCP - General Emergency Medicine 08/20/21 documented as of this encounter
--- OUTSIDE RECORDS SUMMARY | 2024-02-03 16:56 | XMS_ITS | Encounter Summary ---
Author Organization [facility] Address [facility] [place] [address] Care Team Providers Care Tutoring Clinician Name Role Phone Juan Dempsey MD Primary Care Provider [phone] Encounter Details Date Type Department Care Team (Latest Contact Info) Description 01/12/2022 10:00 AM EDT TH Visit (TeleHealth) [place] [address] [facility] [place] [address] Autoimmune hepatitis; Drug-induced liver injury Social History [...] Progress Notes * Ana Pringle MD - 01/12/2022 10:00 AM EDT GASTROENTEROLOGY TELEMEDICINE PROGRAM - ESTABLISHED PATIENT VISIT Chief Complaint: Cristofer Tenorio is a 66 [address] of [address] Dempsey here for follow-up of DILI. Detailed history: [...] days (08/30-09/01) 60 mg/day x 3 days (09/02-5/5) Prednisone 40 mg po 09/05-09/07 Prednisone 20 [...] Budesonide decreased to 6 mg on 12/22/2021 ? Latest Reference Range & Units 08/07/21 [...] 80 (H) (E) 28 21 35 (E) Interval history: He reports not feeling well the few days, cold symptoms, increase mucosa, and cough. He will be taking a COVID test at home today. He has noted more hypertension (171/84 today). He reports his taste has changed with being on budesonide and things taste more bitter, but this is notconsistent. Review of systems: 14-point review of systems [...] by mouth daily. Currently not taking No facility-administered medications prior to visit. Allergies: is allergic to grass pollen-orchardgrass, standard and peanut. Past Medical History: has a past medical history of Claudication, High blood pressure, Hyperlipidemia, and Renal cell carcinoma (07/16/2021). Past Surgical History: has a past surgical history that includes hernia repair (Left); Achilles tendon surgery; Remv Kidney, Radical (61455) (Left, 06/23/2021); Cystourethroscopy (68668) (N/A, 06/23/2021); and Colonoscopy, Diagnostic (85327) (N/A, 10/02/2021). Family History: family history includes Breast Cancer in his mother; Lymphoma in his mother; Pancreatic Cancer in his brother. Social History: reports that he has never smoked. He has never used smokeless tobacco. He reports that he does not drink alcohol and does not use drugs. Physical exam: No Physical Examination performed during this telemedicine visit Laboratory studies, imaging, and procedures (my review of prior records): See HPI Assessment/Plan: Mr. Tenorio is a 66 y.o. 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 We are currently working on slowly tapering down his budesonide. Reviewed his last laboratory investigations which showed an slight increase in ALT to 35 with normal AST. He will repeat labs at the end of the month. His Lipitor has been on hold with his elevated liver enzymes. Discussed that once he is off the budesonide with normal liver enzymes we will restart his Lipitor. Patient verbally consents to this telephone visit and understands that this visit may be billed, similar to a clinic office visit. I provided care to the patient today via telephone call, 20 minutes telephone visit was spent in discussion with patient on above. Was located in [place] at the time ofthis encounter. Approximae time in review of records and documentation 5 minutes. Approximate totaltime devoted to this single encounter on the day of the encounter: 25 minutes Ana Pringle MD [facility] [place] [place] [address] documented in this encounter Plan of Treatment Upcoming Encounters Date Type Department Care Team (Late st Contact Info) Description 02/16/2024 9:15 AM EDT Laboratory Appointment Lab at [facility] Hematology Oncology [address] [place] [address] 02/16/2024 10:20 AM EDT Hospital [place] [address] [facility] DR HEMATOLOGY [place] [address] 02/16/2024 1:30 PM EDT Office Visit Hematology [place] [address] [facility] DR HEMATOLOGY [place] [address] 04/17/2024 10:00 AM EST Office Visit Dermatology at [facility] [address] [place] [address] Oli Winter MD [address] [facility] [place] [address] documented as of this encounter Visit Diagnoses Diagnosis Autoimmune hepatitis Drug-induced liver injury documented in this encounter Care Teams Tutoring Clinician Relationship Specialty Start Date End Date Juan Dempsey MD [address] [place] [address] PCP - General Emergency Medicine 08/20/21 documented as of this encounter
--- OUTSIDE RECORDS SUMMARY | 2024-02-03 16:56 | XMS_ITS | Encounter Summary ---
Author Organization [facility] Address [facility] [place] [address] Care Team Providers Care Paper Production Engineer Name Role Phone Juan Dempsey MD Primary Care Provider [phone] Reason for Visit * Reason Comments Genetic Evaluation * Consultation (Routine) - Closed Specialty Diagnoses / Procedures Referred By Burak mcnair Referred To Contact Hematology and Oncology Diagnoses Family history of melanoma History of renal carcinoma Oli Winter MD [address] [facility] [place] [address] [facility] [address] [place] [address] Referral ID Status Reason Start Date Expiration Date V isits Requested Visits Authorized [id number] Closed Consult, Test & Treat 10/28/2021 10/28/2022 1 1 Encounter Details Date Type Department Care Team (Late st Contact Info) Description 02/20/2022 10:00 AM EDT TH Visit (TeleHealth) [place] [address] Lamont Lewis V, [facility] Hematology/[place] [address] Family history of melanoma; Renal cell carcinoma of left kidney; Family history of pancreatic cancer; Family history of colon cancer; Family history of malignant neoplasm of breast Social History Tobacco Use Types Packs/Day Years [...] as of this encounter Progress Notes * Lamont Lewis LGC - 02/20/2022 10:00 AM EDT Raymundo Tenorio was seen by PILLO Garzon in consultation at the request of Oli Winter to advise regarding possible heritable predisposition to cancer. I spent 42 minutes of this telephone encounter with the patient gathering medical and family history and discussing the likelihood of a genetic predisposition to cancer and the option of genetic testing. Reason for referral/Chief complaint Personal history of renal cancer and family history of melanoma, pancreatic, breast, colon cancer. 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 On 02/04/22 he underwent a left lung core biopsy of pulmonary nodule(s) seen on 01/16/[address] which was positive for metastatic clear cell renal carcinoma. He met with Dr. Bartholomew on 02/13/22 and opted to pursue a treatment plan of systemic therapy with oral cabozantinib 60 mg a day. Current cancer screening: Colonoscopy in 10/2021 showed transverse colon tubular adenoma. Started annual dermatology exams with Dr. Winter after brother passed from complications related to melanoma. Family History of Cancer Problem Relation Age of Onset ??? Lymphoma Mother dx 50s ??? Breast Cancer Mother dx 50s ??? Breast Cancer Sister 53 negative genetic testing (47 gene panel) ??? Pancreatic Cancer Brother 61 ??? Melanoma Brother 60 ??? Leukemia Brother CLL ??? Colorectal Cancer Maternal Aunt 70 ??? Colorectal Cancer Maternal Uncle 67 ??? Stomach Cancer Paternal Uncle ??? Breast Cancer Paternal Cousin ??? Pancreatic Cancer Paternal Cousin Maternal ethnic background is [place]. Paternal ethnic background is Sami. There is no known Ashkenazi Zoroastrianism ancestry. Genetic risk assessment Based on personal and/or family history, the likelihood that Raymundo would be found to have a mutation in a cancer predisposition gene is high enough to offer the option of genetic testing. Specifically, Raymundo meets NCCN criteria for BRCA1/2 genetic testing due to his family history of pancreatic cancer in his brother and breast cancer in his mother. While Raymundo's sister was also diagnosed with breast cancer, she has previously completed comprehensive genetic testing that was negative. However, this does not rule out the possibility of an inherited mutation in Raymundo or his other relatives. While Raymundo does have a personal history of renal cancer and there are genetic syndromes that can increase the risk of renal cancer, his family history is not highly suspicious for these syndromes and it is more likely that his personal history of cancer is sporadic rather than hereditary. However,including analysis of genes associated with risk for renal cancer as part of a broader panel genetic test was discussed as follows. Panel genetic testing for an inherited predisposition to cancer, including renal, pancreatic, breast, and colorectal cancers was discussed. The risks, benefits and limitations of panel genetic testing were reviewed, specifically a high rate of identifying a variant of uncertain significance, lack of knowledge of cancer risk for newly identified, moderate risk genes included in the panel and lack of effective screening, as well as cancer risk for other cancers not observed in the family. We reviewed dominant inheritance, meaning that if a mutation is detected there is a 50% chance for Raymundo's children and siblings to have also inherited the same gene alteration. We discussed the Genetic Information Nondiscrimination Act (ETIENNE), a federal law prohibiting discrimination by health insurance companies and most employers based on genetic information. ETIENNE does not apply to life insurance, disability insurance or long-term care insurance. More information about ETIENNE may be found at www.[email or web address]. Raymundo opted for testing with [facility]'s Multi-Cancer Panel, a next generation sequencing panel that simultaneously analyzes 84 genes, including BRCA1 and BRCA2, that contribute to increased risk for cancer. Raymundo was verbally consented and will be sent consent forms to review, sign, and return. His blood sample will be drawn on 03/11/22 and sent to [facility]. We reviewed [facility]'s billing policy. Raymundo will be notified by text and/or email regarding his estimated out of pocket cost for testing once [facility] completes their benefits investigation. At that time, if Raymundo is concerned about the estimated test cost he will have the option to contact Nujimaggie ashley and either apply for [facility] [facility]'s patient assistance program to try and reduce cost of testingbased on income information, cancel testing, or switch to a self-pay option of $250. If Raymundo does not respond to [facility], testing will be billed to his insurance as the default option. Testing will take up to 3 weeks from when the lab receives the sample. Raymundo will be contacted via telephone once his test results become available. If positive, we will offer a follow-up appointment. At that time, we will discuss with Raymundo the implications that this test result may have for him, as well as his family members. We will also provide Raymundo with screening guidelines for cancer prevention and early detection, as well as answer any questions he may have. documented in this encounter Plan of Treatment Upcoming Encounters Date Type Department Care Team (Late st Contact Info) Description 02/16/2024 9:15 AM EDT Laboratory Appointment Lab at [facility] [place] [address] [place] [address] 02/16/2024 10:20 AM EDT Hospital Encounter CT Scan at [place] [id number] Mitali Griffiths APRN [facility] [address] HEMATOLOGY [place] [address] 02/16/2024 1:30 PM EDT Office Visit [place] [phone] Albino Bartholomew MD [facility] [address] HEMATOLOGY [place] [address] 04/17/2024 10:00 AM EST Office Visit Dermatology at [facility] [address] [place] [address] Oli Winter MD [address] [facility] [address] Scheduled Referrals Name Type Priority Associated Diagnoses Orde r Schedule Referral to Genetics Outpatient Referral Routine Family history of melanoma Ordered: 10/28/2021 documented as of this encounter Visit Diagnoses Diagnosis Family history of melanoma Family history of other specified malignant neoplasm Renal cell carcinoma of left kidney Family history of pancreatic cancer Family history of malignant neoplasm of gastrointestinal tract Family history of colon cancer Family history of malignant neoplasm of gastrointestinal tract Family history of malignant neoplasm of breast documented in this encounter Care Teams Paper Production Engineer Relationship Specialty Start Date End Date Juan Dempsey MD [address] [place] [address] PCP - General Emergency Medicine 08/20/21 documented as of this encounter
--- OUTSIDE RECORDS SUMMARY | 2024-02-03 16:56 | XMS_ITS | Encounter Summary ---
Author Organization [facility] Address [facility] [place] [address] Care Team Providers Care Solar Sales Rep Name Role Phone Juan Dempsey MD Primary Care Provider [phone] Encounter Details Date Type Department Care Team (Late st Contact Info) Description 01/09/2022 Orders [place] [address] Ana Pringle MD [facility] [place] [address] Autoimmune hepatitis Social History Tobacco Use Types [...] [facility] Hematology Oncology [address] [place] [address] 02/16/2024 10:20 AM EDT Hospital [place] [address] Mitali Griffiths APRN [facility] DR [place] [address] 02/16/2024 1:30 PM EDT Office Visit [place]ematology [place] [phone] Albino Bartholomew MD [facility] [address] [place] [address] 04/17/2024 10:00 AM EST Office Visit Dermatology at [facility] [address] [place] [address] Oli Winter MD [address] [facility] [place] [address] Scheduled Orders Name Type Priority Associated Diagnoses Orde r Schedule Hepatic Function Panel Lab Routine Autoimmune hepatitis As Needed for 12 Occurrences starting 01/10/2022 until 04/29/2024 documented as of this encounter Visit Diagnoses Diagnosis Autoimmune hepatitis documented in this encounter Care Teams Solar Sales Rep Relationship Specialty Start Date End Date Juan Dempsey MD [address] [place] [address] PCP - General Emergency Medicine 08/20/21 documented as of this encounter
--- OUTSIDE RECORDS SUMMARY | 2024-02-03 16:56 | XMS_ITS | Encounter Summary ---
Author Organization [facility] [place] [address] Care Team Providers Care Surveyor Hydrographic Name Role Phone Juan Dempsey MD Primary Care Provider [phone] Encounter Details Date Type Department Care Team (Latest Contact Info) Description 02/04/2022 7:40 AM EDT Laboratory Appointment Lab [address] [place] [address] Pre-op testing; Renal cell carcinoma, unspecified laterality; Drug-induced liver injury; Autoimmune hepatitis Social History [...] [facility] Hematology Oncology [address] [place] [address] 02/16/2024 10:20 AM EDT Hospital [place] [phone] Mitali Griffiths APRN [facility] [address] [place] [address] 02/16/2024 1:30 PM EDT Office Visit Hematology [place] [address] Albino Bartholomew MD [facility] [address] [place] [address] 04/17/2024 10:00 AM EST Office Visit Dermatology at [facility] [address] [place] [address] Oli Winter MD [address] [facility] [place] [address] documented as of this encounter Procedures Procedure Name Priority Date/Time Associated Diagnosis Comments BILIRUBIN, DIRECT Routine 02/04/2022 7:5 2 AM EDT HEMOGRAM Routine 02/04/2022 7:52 AM EDT Drug-induced liver injury DIFFERENTIAL, AUTOMATED Routine 02/04/2022 7:52 AM EDT Drug-induced liver injury HC PROTHROMBIN TIME STAT 02/04/2022 7 :52 AM EDT Pre-op testing Renal cell carcinoma, unspecified laterality PLATELET COUNT STAT 02/04/2022 7:52 AM EDT Pre-op testing Renal cell carcinoma, unspecified laterality HC CBC,PLT & AUTO DIFF Routine 02/04/2022 7:52 AM EDT Drug-induced liver injury HC VENIPUNCTURE Routine 02/04/2022 7:52 AM EDT Drug-induced liver injury documented in this encounter Results * Bilirubin, Direct (02/04/2022 7:52 AM EDT) Pathologist [facility] Bilirubin, Direct 0.1 0.0 - 0.3 mg/dL [facility] Blood 02/04/2022 7:52 AM EDT 02/04/2022 7:58 AM EDT Narrative Resulting Agency Comment Spec In Lab Ana Pringle MD CHEMISTRY ORDERABLES [facility] [place] [address] * (ABNORMAL) Differential, Automated (02/04/2022 7:52 AM EDT) Neutrophil % 72.9 % [facility] Neutrophil Absolute 7.51(H) 1.70 - 6.10 x10(3)/mc L [facility] Lymph % 18.3 % [facility] Lymphocytes Abs 1.9 0.9 - 3.2 x10(3)/ L [facility] Monocyte % 5.7 % [facility] Monocyte Abs 0.6 0.3 - 0.9 x10(3)/[facility] Eos % 1.6 % [facility] Eosinophils Abs 0.2 0.0 - 0.4 x10(3)/[facility] Basophil % 0.9 % [facility] Baso Absolute 0.1 0.0 - 0.1 x10(3)/[facility] Immature Gran % 0.60 % [facility] Comment: Immature granulocytes(IG's)percentage and absolute count will include metamyelocytes, myelocytes, and promyelocytes. Blood smears from CBCs yielding IG's will be scanned manually for concordance. If this scan disagrees with the automated IG or if promyelocytes are noted, a manual differential will be performed. Immature Gran Absolute 0.06(H) 0.00 - 0.04 x10(3)/[facility] Blood 02/04/2022 7:52 AM EDT 02/04/2022 7:58 AM EDT Narrative Resulting Agency Comment Spec In Lab Ana Pringle MD HEMATOLOGY ORDERABLE S [facility] [place] [address] * (ABNORMAL) Hemogram (02/04/2022 7:52 AM EDT) White Blood Cell 10.3(H) 4.0 - 9.5 x10(3)/[facility] Red Blood Cell 5.09 4.58 - 5.54 x10(6)/[facility] Hemoglobin 14.5 13.7 - 16.5 g/dL [facility] Hematocrit 44.6 40.5 - 48.5 % [facility] Mean Cell Volume 87.6 82.9 - 93.1 fL [facility] Mean Cell Hemoglobin 28.5 27.5 - 32.1 pg [facility] Mean Cell Hemoglobin Concentration 32.5 32.0 - 35.7 g/dL [facility] Platelet 189 145 - 357 x10(3)/mc L [facility] RDW Standard Deviation 44.3 36.0 - 45.0 fL [facility] RDW coefficient of variation 13.7 11.4 - 13.8 % [facility] Mean Platelet Volume 9.3 7.6 - 12.9 fL [facility] NRBC% auto 0.0 % [facility] NRBC Absolute 0.000 0.000 - 0.000 x10(3)/mc L [facility] Blood 02/04/2022 7:52 AM EDT 02/04/2022 7:58 AM EDT Narrative Resulting Agency Comment Spec In Lab Ana Pringle MD HEMATOLOGY ORDERABLE S [facility] [place] [address] * (ABNORMAL) Comprehensive metabolic panel (non-fasting) (02/04/2022 [...] CHEMISTRY ORDERABLES [facility] [place] [address] * Prothrombin Time (02/04/2022 7:52 AM EDT) Prothrombin Time 10.9 9.4 - 12.5 sec [facility] International Normalization Ratio 1.0 [facility] Comment: An INR <2.0 indicates [...] Lab Albino Bartholomew MD HEMATOLOGY ORDERABLE S [facility] [place] [address] * Platelet count (02/04/2022 7:52 AM EDT) Platelet 189 145 - 357 x10(3)/mc L [facility] Immature Plt % 2.0 0.0 - 7.4 % [facility] Comment: Limitation of the Immature Platelet Fraction (IPF)-May be less reliable when the platelet count is less than 58n945/uL due to statistical imprecision. The IPF value [...] in a decreased state of production. References: [employer] The Clinical Value of the Immature Platelet Fraction (IPF) in Cell Recovery Document Number [id number] 10/[address] [employer] The Role of the Immature Platelet Fraction (IPF) in the Differential Diagnosis of Thrombocytopenia, Document [id number] V05 P014 Blood 02/04/2022 7:52 AM EDT 02/04/2022 7:58 AM EDT Narrative Resulting Agency Comment Spec In Lab Albino Bartholomew MD HEMATOLOGY ORDERABLE S Performing Organization Address City/State/[facility] Co de Phone Number [facility] [place] [address] documented in this encounter Visit Diagnoses Diagnosis Pre-op testing Preoperative examination, unspecified Renal cell carcinoma, unspecified laterality Drug-induced liver injury Autoimmune hepatitis documented in this encounter Care Teams Surveyor Hydrographic Relationship Specialty Start Date End Date Juan Dempsey MD [address] [place] [address] PCP - General Emergency Medicine 08/20/21 documented as of this encounter
--- OUTSIDE RECORDS SUMMARY | 2024-02-03 16:56 | XMS_ITS | Encounter Summary ---
Author Organization [facility] [place] [address] Care Team Providers Care Exercise Instruct Name Role Phone Juan Dempsey MD Primary Care Provider [phone] Reason for Referral * Diagnostic Test (Routine) - Closed Specialty Diagnoses / Procedures Referred By Contac t Referred To Contact Radiology Diagnoses History of renal cell carcinoma Incidental lung nodule, > 3mm and < 8mm Procedures CT Chest wo Contrast (Generic) Kelin Carlos APRN [facility] HEMATOLOGY [place] [address] [facility] [place] [address] Referral ID Status Reason Start Date Expiration Date V isits Requested Visits Authorized [id number] Closed Specialty Service Requested 11/28/2021 05/31/2023 1 1 Reason for Visit * Diagnostic Test (Routine) - Closed Specialty Diagnoses / Procedures Referred By Contac t Referred To Contact Radiology Diagnoses History of renal cell carcinoma Incidental lung nodule, > 3mm and < 8mm Procedures CT Chest wo Contrast (Generic) Kelin Carlos APRN [facility] HEMATOLOGY [place] [address] [facility] [place] [address] Referral ID Status Reason Start Date Expiration Date V isits Requested Visits Authorized [id number] Closed Specialty Service Requested 11/28/2021 05/31/2023 1 1 Encounter Details Date Type Department Care Team (Latest Contact Info) Description 01/15/2022 9:54 AM EDT - 01/15/2022 11:59 PM EDT Hospital Encounter CT Scan at [facility] [place] [address] Kelin Carlos APRN [facility] DR HEMATOLOGY [place] [address] History of renal cell carcinoma; Incidental lung nodule, > 3mm and < 8mm Discharge Disposition: Home Social History Tobacco Use [...] at [facility] Hematology Oncology [address] [place] [address] 02/16/2024 10:20 AM EDT Hospital [place] [address] Mitali Griffiths APRN [facility] HEMATOLOGY [place] [address] 02/16/2024 1:30 PM EDT Office Visit Hematology [place] [phone] Albino Bartholomew MD [facility] DR HEMATOLOGY [place] [address] 04/17/2024 10:00 AM EST Office Visit Dermatology at [address] [place] [address] Oli Winter MD [address] [facility] [address] documented as of this encounter Procedures Procedure Name Priority Date/Time Associated Diagnosis Comments CT CHEST WO CONTRAST (GENERIC) Routine 01/15/2022 10:01 AM EDT History of renal cell carcinoma Incidental lung nodule, > 3mm and < 8mm documented in this encounter Results * CT Chest wo Contrast (Generic) (01/15/2022 10:01 AM EDT) Anatomical Region Laterality Modality Chest Computed Tomogra phy 01/15/2022 10:1 7 AM EDT Impressions 01/15/2022 3:57 PM EDT New and enlarging pulmonary nodules as described above, concerning for metastatic disease. I have personally reviewed the image(s) and the resident's interpretation and agree with the findings, Mady Early MD at 01/15/2022 3:57 PM Thank you for letting us participate in the care of this patient. ??If you are a health care provider and have any questions regarding this report, please contact the number below. ??For patients who have questions please contact the health caretaker resort that requested your imaging first. ? Narrative 01/15/2022 3:57 PM EDT EXAMINATION: CT CHEST WO CONTRAST (GENERIC) CLINICAL HISTORY: Lung nodule, 6-8mm, follow up exam history of renal cell carcinoma f/u exam on chest CT 10/16/21 which showed a new 6 mm R anterior upper lobe nodule in pt w/hx renal cell carcinoma TECHNIQUE: 3.75 mm thick axial contiguous sections were obtained through the chest via helical acquisition without intravenous contrast administration. Thin-section reconstructions as well as coronal and sagittal reformatted images were generated. COMPARISON: CT chest 10/16/2021 FINDINGS: Pulmonary parenchyma: Interval increase in size of two pulmonary nodules: * ??10 mm anterior right upper lobe pulmonary nodule (series 4 image 62), previously 6 mm. * ??14 mm left lower lobe pulmonary nodule (series 4 image 249), previously 8 mm. New 3 mm right upper lobe pulmonary nodule (series 4 image 130). Two new 3 mm right upper lobe subpleural nodules (series 4 image 107 and 116). Stable tiny right apical nodule. Airways: Central airways are patent. Pleura: No pleural effusion or pneumothorax. Lymph nodes: No enlarged lymph nodes. Heart, pericardium, and great vessels: The heart is normal in size and without pericardial effusion. Mild coronary artery and aortic atherosclerotic calcifications. 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 Lower neck: No significant findings. Upper abdomen: Status post left nephrectomy. Body wall soft tissues: No significant findings. Skeletal structures: No suspicious osseous lesions. Procedure Note Mady Early MD - 01/15/2022 EXAMINATION: CT CHEST WO CONTRAST (GENERIC) CLINICAL HISTORY: Lung nodule, 6-8mm, follow up exam history of renalcell carcinoma f/u exam on chest CT 10/16/21 which showed a new 6 mm R anterior upperlobe nodule in pt w/hx renal cell carcinoma TECHNIQUE: 3.75 mm thick axial contiguous sections were obtained throughthe chest via helical acquisition without intravenous contrastadministration. Thin-section reconstructions as well as coronal and sagittal reformattedimages were generated. COMPARISON: CT chest 10/16/2021 FINDINGS: Pulmonary parenchyma: Interval increase in size of two pulmonary nodules: * 10 mm anterior right upper lobe pulmonary nodule (series 4 image 62), previously 6 mm. * 14 mm left lower lobe pulmonary nodule (series 4 image 249), previously8 mm. New 3 mm right upper lobe pulmonary nodule (series 4 image 130). Two new 3 mm right upper lobe subpleural nodules (series 4 image 107 [id number]). Stable tiny right apical nodule. Airways: Central airways are patent. Pleura: No pleural effusion or pneumothorax. Lymph nodes: No enlarged lymph nodes. Heart, pericardium, and great vessels: The heart is normal in size andwithout pericardial effusion. Mild coronary artery and aortic atherosclerotic calcifications. 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 Lower neck: No significant findings. Upper abdomen: Status post left nephrectomy. Body wall soft tissues: No significant findings. Skeletal structures: No suspicious osseous lesions. IMPRESSION New and enlarging pulmonary nodules as described above, concerning for metastatic disease. I have personally reviewed the image(s) and the resident's interpretationand agree with the findings, Mady Early MD at 01/15/2022 3:57 PM Thank you for letting us participate in the care of this patient. If youare a health care provider and have any questions regarding this report,please contact the number below. For patients who have questions please contactthe health caretaker resort that requested your imaging first. Kelin Carlos ABE TEACHER IMG CT ORDERABLES documented in this encounter Visit Diagnoses Diagnosis History of renal cell carcinoma Incidental lung nodule, > 3mm and < 8mm Solitary pulmonary nodule documented in this encounter Care Teams Exercise Instruct Relationship Specialty Start Date End Date Juan Dempsey MD [address] [place] [address] PCP - General Emergency Medicine 08/20/21 documented as of this encounter
--- OUTSIDE RECORDS SUMMARY | 2024-02-03 16:56 | XMS_ITS | Encounter Summary ---
Author Organization [facility] Address [facility] [place] [address] Care Team Providers Care Corn Press Operator Name Role Phone Juan Dempsey MD Primary Care Provider [phone] Encounter Details Date Type Department Care Team (Late st Contact Info) Description 02/23/2022 Orders Only Hematology [place] [address] Lamont Lewis V [facility] Hematology/[place] [address] Family history of melanoma; Renal cell carcinoma [...] 9:15 AM EDT Laboratory Appointment Lab at [facility] Hematology Oncology [address] [place] [id number] 02/16/2024 10:20 AM EDT Hospital [place] [phone] Mitali Griffiths APRN [facility] DR HEMATOLOGY AND ONCOLOGY [place], [place] [phone] 02/16/2024 1:30 PM EDT Office Visit Hematology [place] [address] Albino Bartholomew MD [facility] [address] [place] [address] 04/17/2024 10:00 AM EST Office Visit Dermatology at [facility] [address] [place] [phone] Oli Winter MD [address] [facility] [place] [address] documented as of this encounter Results * Research Venipuncture (03/18/2022 11:44 AM EST) Research Venipuncture Drawn [facility] Blood 03/18/2022 11:4 4 AM EST 03/18/2022 11:59 AM EST Narrative Resulting Agency Comment Spec In Lab Odell Ruiz MD CHEMISTRY ORDERABLES [facility] [place] [address] documented in this encounter Visit Diagnoses Diagnosis Family history of melanoma Family history of other specified malignant neoplasm Renal cell carcinoma of left kidney Family history of pancreatic cancer Family history of malignant neoplasm of gastrointestinal tract Family history of colon cancer Family history of malignant neoplasm of gastrointestinal tract Family history of malignant neoplasm of breast documented in this encounter Care Teams Corn Press Operator Relationship Specialty Start Date End Date Juan Dempsey MD [address] [place] [address] PCP - General Emergency Medicine 08/20/21 documented as of this encounter
--- OUTSIDE RECORDS SUMMARY | 2024-02-03 16:56 | XMS_ITS | Encounter Summary ---
Author Organization [facility] Address [facility] [place] [address] Care Team Providers Care Cargo And Ramp Services Manager Name Role Phone Juan Dempsey MD Primary Care Provider [phone] Reason for Referral * Diagnostic Test (Routine) - Closed Specialty Diagnoses / Procedures Referred By Contac t Referred To Contact Radiology Diagnoses Renal cell carcinoma, unspecified laterality Procedures MRI Brain wwo Contrast (Generic) Albino Costello MD [facility] [place] [address] [place] [address] Referral ID Status Reason Start Date Expiration Date V isits Requested Visits Authorized [id number] Closed Specialty Service Requested 01/16/2022 07/17/2023 1 1 * Diagnostic Test (Routine) - Closed Specialty Diagnoses / Procedures Referred By Contac t Referred To Contact Radiology Diagnoses Renal cell carcinoma, unspecified laterality Procedures MRI Abdomen wwo Contrast (Generic) Albino Costello MD [facility] [place] [address] [place] [address] Referral ID Status Reason Start Date Expiration Date V isits Requested Visits Authorized [id number] Closed Specialty Service Requested 01/16/2022 07/17/2023 1 1 * Diagnostic Test (Routine) - Closed Specialty Diagnoses / Procedures Referred By Contac t Referred To Contact Radiology Diagnoses Renal cell carcinoma, unspecified laterality Multiple lung nodules on CT Procedures CT Guided Biopsy Lung Albino Costello MD [facility] [place] [address] [facility] [place] [address] Referral ID Status Reason Start Date Expiration Date V isits Requested Visits Authorized [id number] Closed Specialty Service Requested 01/16/2022 07/17/2023 1 1 Encounter Details Date Type Department Care Team (Latest Contact Info) Description 01/16/2022 3:30 PM EDT TH Visit (TeleHealth) [place]ematology [place] [address] Albino Costello MD [facility] [place] [address] Renal cell carcinoma, unspecified laterality (Primary Dx); Multiple lung nodules on CT; Drug-induced hepatitis Social History Tobacco Use Types [...] as of this encounter Progress Notes * Albino Costello MD - 01/16/2022 3:30 PM EDT Images from the original note were not included. Reason/purpose for phone call: Follow-up on renal cell carcinoma and discussion on restaging CT scan. The patient voiced an understanding of the reason and intent of the phone call, and provided verbalconsent to discuss clinical issues by phone. Additionally, the patient acknowledged that a telephone consultation is a billable encounter, and that the patient or their medical insurance carrier could be billed. History of Present Illness: Mr. Tenorio is [...] recent infections or infectious symptoms. Interval History: I called Raymundo for f/u on kidney cancer and to discuss restaging CT chest. He hadheadaches, nausea and dizziness for 4 days and now. Went to local emergency room where he was diagnosed with? Sinusitis. According to patient he had images including x-ray and had CT scan which reportedly were negative. He feels better now. -No constitutional, respiratory, urinary, bowel, or skin concerns --Shoulder main much improved, especially when I'm not using it -No pain otherwise or other focal complaints -ROS otherwise negative. 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 Wt Readings from Last 3 Encounters: 11/26/21 101.6 kg (224 lb) 11/26/21 101.6 kg (224 lb) 10/29/21 100.2 kg (221 lb) Lab results: No new Pathology: 10/02/21 (colonoscopy/biopsy): DIAGNOSIS A - Transverse [...] (pT): ??pT3a ?Regional Lymph Nodes (pN): ??pN1 Imagin01/16/22 CT chest: IMPRESSION New and enlarging pulmonary nodules as described above, concerning for metastatic disease 11/07/21 MRI Abdomen: IMPRESSION No evidence of local recurrence or metastatic disease in the abdomen and pelvis. 10/20/21 CXR ([facility]): 10/16/21: IMPRESSION 1. Unexpected finding: New [...] taper. Pt prefers to get labs at [facility]. We'll send orders and I'll ask our tandem mill sticker to f/u on results. Advised pt to [...] he had grade 3 toxicity with significant elevation, we will discontinue pembrolizum ab. Rash flares: also likely related to pembro. [...] week after biopsy to finalize the plan. #L LE DVT: continue Eliquis per PCP. 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 He continues monitoring and management with Dr. Pringle, scheduled for f/u visit today. Mr. Tenorio asked appropriate questions and verbalized good understanding of and agreement with the plan. I encouraged him to call anytime with questions or concerns and he agreed. Plan: -CT-guided biopsy of lung nodules by IR -MRI of brain and MRI of abdomen -Next visit in 1-2 weeks after biopsy Discussed case with Dr. Costello who concurs with plan. Mr. Tenorio asked appropriate questions and verbalized good understanding of and agreement with the plan. I encouraged him to call anytime with questions or concerns and he agreed. ALBINO COSTELLO MD Oncology documented in this encounter Plan of Treatment Upcoming Encounters Date Type Department Care Team (Late st Contact Info) Description 02/16/2024 9:15 AM EDT Laboratory Appointment Lab at [facility] Hematology Oncology [address] [place] [address] 02/16/2024 10:20 AM EDT Hospital [place] [address] Mitali Griffiths, SAP BPC ARCHITECT [facility] [place] [address] 02/16/2024 1:30 PM EDT Office Visit Hematology [place] [address] Albino Costello MD [facility] [place] [address] 04/17/2024 10:00 AM EST Office Visit Dermatology at [facility] [address] [place] [address] Oli Winter MD [address] [facility] [place] [address] documented as of this encounter Results * [...] who have questions please contact the health director of career services that requested your imaging first. ? Electronically signed by: German Morel MD, [facility] ([phone]), at 02/09/2022 8:55 AM Narrative 02/09/2022 8:55 AM EDT EXAMINATION: MRI [...] patients who have questions please contactthe health director of career services that requested your imaging first. Electronically signed by: German Morel MD, [facility]([phone]), at 02/09/2022 8:55 AM Albino Costello MD IM MRI ORDERABLES * MRI Brain wwo Contrast (Generic) (02/05/2022 7:11 PM EDT) Anatomical Region Laterality Modality Head Magnetic Resonan ce Impressions 02/06/2022 9:28 AM EDT No evidence of metastatic neoplasm. I have personally reviewed the image(s) and the resident's interpretation and agree with the findings, Rey Jones MD at 02/06/2022 9:28 AM Thank you for letting us participate in the care of this patient. ??If you are a health care provider and have any questions regarding this report, please contact the number below. ??For patients who have questions please contact the health director of career services that requested your imaging first. ? Electronically signed by: Rey Jones MD, [facility] ([phone]), at 02/06/2022 9:28 AM Narrative 02/06/2022 9:28 AM EDT EXAMINATION: MRI BRAIN WWO CONTRAST (GENERIC) CLINICAL HISTORY: Metastatic disease evaluation Restaging of renal cell carcinoma, metastatic TECHNIQUE: MRI of the brain was performed before and after the intravenous administration of 20cc Dotarem. COMPARISON: None FINDINGS: No evidence of mass effect/midline shift or contrast enhancing lesions. There is no leptomeningeal enhancement. No abnormal enhancing or expansile bone lesion is present. There is no abnormal diffusion restriction. No evidence of acute hemorrhage or blood degradation products. Normal ventricular caliber and symmetry. There is a large left maxillary sinus retention cyst. There are a few punctate foci of T2 white matter signal abnormality, a nonspecific finding most likely secondary to chronic small vessel disease. Normal intracranial flow voids. Procedure Note Rey Jones MD - 02/06/2022 EXAMINATION: MRI BRAIN WWO CONTRAST (GENERIC) CLINICAL HISTORY: Metastatic disease evaluation Restaging of renal cell carcinoma, metastatic TECHNIQUE: MRI of the brain was performed before and after the intravenousadministration of 20cc Dotarem. COMPARISON: None FINDINGS: No evidence of mass effect/midline shift or contrast enhancing lesions.There is no leptomeningeal enhancement. No abnormal enhancing or expansile bonelesion is present. There is no abnormal diffusion restriction. No evidence of acute hemorrhage or blood degradation products. Normal ventricular caliber and symmetry. There is a large left maxillary sinus retention cyst. There are a few punctate foci of T2 white matter signal abnormality, a nonspecific finding most likely secondary to chronic small vesseldisease. Normal intracranial flow voids. IMPRESSION No evidence of metastatic neoplasm. I have personally reviewed the image(s) and the resident's interpretationand agree with the findings, Rey Jones MD at 02/06/2022 9:28 AM Thank you for letting us participate in the care of this patient. If youare a health care provider and have any questions regarding this report,please contact the number below. For patients who have questions please contactthe health director of career services that requested your imaging first. Electronically signed by: Rey Jones MD, [facility]([phone]), at 02/06/2022 9:28 AM [address] [facility] MRI ORDERABLES * CT Guided Biopsy Lung (02/04/2022 10:51 AM EDT) Anatomical Region Laterality Modality Lung Computed Tomogra phy Impressions 02/04/2022 10:54 AM EDT Impression: Technically successful CT-guided core needle biopsy of the left lung. Certified Master Locksmith(s): Attending: Rich Baldwin MD Procedure/Teaching Attestation: ??I [...] who have questions please contact the health director of career services that requested your imaging first. ? Electronically signed by: Rich Baldwin MD, [facility] ([phone]), at 02/04/2022 10:54 AM Narrative 02/04/2022 10:54 [...] CT-guided core needle biopsy of theleft lung. Certified Master Locksmith(s): Attending: Rich Baldwin MD Procedure/Teaching Attestation: I performed the procedure. Moderate Sedation Attestation: I was present during the intra-service timeas documented by the IR nurse. Thank you for letting us participate in the care of this patient. If youare a health care provider and have any questions regarding this report,please contact the number below. For patients who have questions please contactthe health director of career services that requested your imaging first. Electronically signed by: Rich Baldwin MD, [facility]([phone]), at 02/04/2022 10:54 AM Albino Costello MD IMG CT ORDERABLES documented in this encounter Visit Diagnoses Diagnosis Renal cell carcinoma, unspecified laterality- Primary Multiple lung nodules on CT Drug-induced hepatitis Hepatitis, unspecified Pre-op testing Preoperative examination, unspecified Renal cell carcinoma, unspecified laterality Multiple lung nodules on CT Renal cell carcinoma, unspecified laterality Renal cell carcinoma, unspecified laterality documented in this encounter Care Teams Cargo And Ramp Services Manager Relationship Specialty Start Date End Date Juan Dempsey MD [address] [place] [id number] PCP - General Emergency Medicine 08/20/21 documented as of this encounter
--- OUTSIDE RECORDS SUMMARY | 2024-02-03 16:56 | XMS_ITS | Encounter Summary ---
[facility] [place] [address] Care Team Providers Care Radio Station Audio Engineer Name Role Phone Juan Dempsey MD Primary Care Provider [phone] Reason for Visit * Reason Comments Prior Authorization Cabometyx Encounter Details Date Type Department Care Team (Late st Contact Info) Description 02/13/2022 Specialty [place] [phone] Larry Mckeon, PATROL OFFICER Social History Tobacco Use Types Packs/Day Years [...] this encounter Progress Notes * Larry Mckeon 02/13/2022 2:53 PM EDT [facility], Medication Prior Authorization Submission Patient: Cristofer Tenorio Patient : 1955 Patient Address: [address] [place] [phone] (home) Medication Name: CABOMETYX 60 MG TABLET Medication ID: [id number] Subscriber Insurance: [place] [employer] Subscriber Insurance Comment: Phone: [phone] Fax: Physician: ALBINO COSTELLO Physician Comment: Sent Via: [facility] Vega: [id number] Ref/Case/PA#: Medication Strength Frequency Requested: Take one tablet by mouth daily Qty/Day Supply: New Start: New to Therapy Diagnosis & ICD-10 Code: renal cell carcinoma Patient Notified: No Submission Notes: None Larry Mckeon 02/13/22 2:59 PM * Larry Mckeon - 02/13/2022 2:53 PM EDT [facility], Prior Authorization Approval Medication Name: CABOMETYX 60 MG TABLET Medication ID: [id number] Approval Dates: 05/03/2021 to 2025 Insurance requirements/notes: None Other Notes: None Case/Reference #: [id number] Approval notification Received via: [facility] Copay: $0 Copay assistance: None Copay Notes: Insurance mandated Pharmacy: Fillable at [facility] Specialty Pharmacy: Yes Pharmacy staff will be reaching out to the patient to inform them of their medication's approval bytheir insurance. If applicable, a pharmacist will speak with the patient to offer our specialty pharmacy services and to arrange delivery of their medication. Larry Mckeon 02/17/22 2:23 PM documented in this encounter Plan of Treatment Upcoming Encounters Date Type Department Care Team (Late st Contact Info) Description 02/16/2024 9:15 AM EDT Laboratory Appointment Lab at [facility] Hematology Oncology [address] [place] [address] 02/16/2024 10:20 AM EDT Hospital [place] [address] Mitali Griffiths APRN [facility] DR HEMATOLOGY [place] [address] 02/16/2024 1:30 PM EDT Office Visit [place]ology [place] [address] Albino Costello MD [facility] HEMATOLOGY [place] [address] 04/17/2024 10:00 AM EST Office Visit Dermatology at [place] [address] [place] [address] Oli Winter MD [address] [place] [address] documented as of this encounter Visit Diagnoses Not on filedocumented in this encounter Care Teams Radio Station Audio Engineer Relationship Specialty Start Date End Date Juan Dempsey MD [address] [place] [address] PCP - General Emergency Medicine 08/20/21 documented as of this encounter
--- OUTSIDE RECORDS SUMMARY | 2024-02-03 16:56 | XMS_ITS | Encounter Summary ---
Author Organization [facility] Address [facility] [place] [address] Care Team Providers Care Cloth Beamer Name Role Phone Juan Dempsey MD Primary Care Provider [phone] Encounter Details Date Type Department Care Team (Latest Contact Info) Description 02/04/2022 1:00 PM EDT - 02/04/2022 11:59 PM EDT Hospital Encounter XRay at [address] [place] [address] Rich Baldwin MD [facility] [place] [address] Discharge Disposition: Home Social History Tobacco Use [...] [facility] [place] On[place] [address] [place] [address] 02/16/2024 10:20 AM EDT Hospital [place] [address] Mitali Griffiths APRN [facility] [place] [address] 02/16/2024 1:30 PM EDT Office Visit Hematology [place] [address] Albino Bartholomew MD [facility] [place] [address] 04/17/2024 10:00 AM EST Office Visit Dermatology at [facility] [address] [place] [address] Oli Winter MD [address] [facility] [place] [address] documented as of this encounter Procedures Procedure Name Priority Date/Time Associated Diagnosis Comments XR CHEST ONE VIEW Routine 02/04/2022 1:0 5 PM EDT documented in this encounter Results [...] have questions please contact the health healthcare marketer that requested your imaging first. ? Narrative 02/04/2022 3:02 PM EDT EXAMINATION: XR CHEST ONE VIEW CLINICAL HISTORY: 2 hour post L lung biopsy TECHNIQUE: 1 view of the chest PA COMPARISON: 02/04/2022. FINDINGS: Improved aeration of bilateral lungs. Improvement in bibasilar atelectasis. No pneumothorax or pleural effusion. Borderline cardiomegaly. Normal pulmonary vasculature. No interval osseous changes. Procedure Note Ragini Santana MD - 02/04/2022 EXAMINATION: XR CHEST ONE [...] who have questions please contactthe health healthcare marketer that requested your imaging first. Rich Baldwin MD IMG DX ORDERABLES documented in this encounter Visit Diagnoses Not on filedocumented in this encounter Care Teams Cloth Beamer Relationship Specialty Start Date End Date Juan Dempsey MD [address] [place] [address] PCP - General Emergency Medicine 08/20/21 documented as of this encounter
--- OUTSIDE RECORDS SUMMARY | 2024-02-03 16:56 | XMS_ITS | Encounter Summary ---
Author Organization [facility] [place] [address] Care Team Providers Care Automatic Casting Machine Operator Name Role Phone Juan Dempsey MD Primary Care Provider [phone] Reason for Referral * Diagnostic Test (Routine) - Closed Specialty Diagnoses / Procedures Referred By Contac t Referred To Contact Radiology Diagnoses Renal cell carcinoma, unspecified laterality Procedures MRI Brain wwo Contrast (Generic) Albino Bartholomew MD [facility] DR HEMATOLOGY [place] [address] [place] [address] Referral ID Status Reason Start Date Expiration Date V isits Requested Visits Authorized [id number] Closed Specialty Service Requested 01/16/2022 07/17/2023 1 1 Reason for Visit * Diagnostic Test (Routine) - Closed Specialty Diagnoses / Procedures Referred By Contac t Referred To Contact Radiology Diagnoses Renal cell carcinoma, unspecified laterality Procedures MRI Brain wwo Contrast (Generic) Albino Bartholomew MD [facility] HEMATOLOGY [place] [address] [place] [address] Referral ID Status Reason Start Date Expiration Date V isits Requested Visits Authorized [id number] Closed Specialty Service Requested 01/16/2022 07/17/2023 1 1 Encounter Details Date Type Department Care Team (Latest Contact Info) Description 02/05/2022 5:35 PM EDT - 02/05/2022 11:59 PM EDT Hospital Encounter MRI at [facility] [place] [place] [address] Albino Bartholomew MD [facility] HEMATOLOGY [place] [address] Renal cell carcinoma, unspecified laterality [...] [facility] Oncology [address] [place] [address] 02/16/2024 10:20 AM EDT Hospital [place] [address] Mitali Griffiths APRN [facility] DR HEMATOLOGY [place] [address] 02/16/2024 1:30 PM EDT Office Visit Hematology [place] [address] Albino Bartholomew MD [facility] DR HEMATOLOGY [place] [address] 04/17/2024 10:00 AM EST Office Visit Dermatology at [facility] [address] [place] [address] Oli Winter MD [address] [facility] [place] [address] documented as of this encounter Procedures Procedure Name Priority Date/Time Associated Diagnosis Comments MRI BRAIN WWO CONTRAST (GENERIC) Routine 02/05/2022 7:11 PM EDT Renal cell carcinoma, unspecified laterality documented in this encounter Results * MRI Brain wwo Contrast (Generic) (02/05/2022 [...] who have questions please contact the health rn wound care that requested your imaging first. ? Electronically signed by: Rey Jones MD, [facility] ([phone]), at 02/06/2022 9:28 AM Narrative 02/06/2022 9:28 [...] patients who have questions please contactthe health rn wound care that requested your imaging first. Albino Bartholomew MD [facility] [place] ORDERABLES documented in this encounter Visit Diagnoses Diagnosis Renal cell carcinoma, unspecified laterality documented in this encounter Administered Medications Inactive Administered Medications - up to 3 most recent administrations Medication Order MAR Action Action Date Dose Rate Site gadoterate meglumine (Dotarem) (0.5 mMol/mL) injection solution 0-100 mL 0-100 mL, Intravenous, ONCE PRN, 1 dose, Starting on Yuliet 02/05/22 at 1908, Until Yuliet 02/05/22 at 1911, Per Protocol, For MRI brain 02/05, Radiology Contrast, Routine Given 02/05/2022 7:11 PM EDT 20 mLs documented in this encounter Care Teams Automatic Casting Machine Operator Relationship Specialty Start Date End Date Juan Dempsey MD [address] [place] [address] PCP - General Emergency Medicine 08/20/21 documented as of this encounter
--- OUTSIDE RECORDS SUMMARY | 2024-02-03 16:56 | XMS_ITS | Encounter Summary ---
Author Organization [facility] Address [facility] [place] [address] Care Team Providers Care Draw Fire Operator Name Role Phone Juan Dempsey MD Primary Care Provider [phone] Encounter Details Date Type Department Care Team (Late st Contact Info) Description 02/14/2022 Telephone [place]ematology [place] [address] Odell Ruiz MD [facility] DR HEMATOLOGY/[place] [address] Social History Tobacco Use Types Packs/Day Years [...] encounter Miscellaneous Notes * Telephone Encounter - Odell Ruiz MD - 02/14/2022 5:58 PM EDT Heme-Onc Staff I have reviewed the patient's record and, given personal and/or family history of cancer he should be seen by a genetic counselor. This is scheduled for next week. Odell Ruiz MD road gang supervisor in Hematology-Oncology documented in this encounter Plan of Treatment Upcoming Encounters Date Type Department Care Team (Late st Contact Info) Description 02/16/2024 9:15 AM EDT Laboratory Appointment Lab at [facility] Hematology Oncology [address] [place] [address] 02/16/2024 10:20 AM EDT Hospital [place] [address] Mitali Griffiths APRN [facility] DR HEMATOLOGY [place] [address] 02/16/2024 1:30 PM EDT Office Visit [place]ology [place] [address] Albino Bartholomew MD [facility] DR HEMATOLOGY [place] [address] 04/17/2024 10:00 AM EST Office Visit Dermatology at [facility] [address] [place] [address] Oli Winter MD [address] [facility] [place] [address] documented as of this encounter Visit Diagnoses Not on filedocumented in this encounter Care Teams Draw Fire Operator Relationship Specialty Start Date End Date Juan Dempsey MD [address] [place] [address] PCP - General Emergency Medicine 08/20/21 documented as of this encounter
--- OUTSIDE RECORDS SUMMARY | 2024-02-03 16:56 | XMS_ITS | Encounter Summary ---
Author Organization [facility] Address [facility] [place] [address] Care Team Providers Care Floor Finisher Name Role Phone Juan Dempsey MD Primary Care Provider [phone] Encounter Details Date Type Department Care Team (Late st Contact Info) Description 2022 Telephone Hematology [place] [address] Bonita Gomez, RN Social History Tobacco Use Types Packs/Day [...] encounter Miscellaneous Notes * Telephone Encounter - Bonita Gomez RN - 2022 2:50 PM EDT Oral Chemotherapy Check Note 2022 Cristofer Tenorio, 1955 Prescriptions for oral chemotherapy were reviewed as follows: Oral Chemotherapy Order:cabozantinib (Cabometyx) 60 mg tablet Order details: ?? Dose: 60mg ?? Route: Oral ?? Quantity to be dispensed #: 30 tablets ?? Number of refills: 11 ?? Instructions: Take 1 tablet (60 mg) by mouth daily. Take on an empty stomach. Call clinic beforestarting medication ?? Cycle number and length: Daily, ongoing ?? Start date: when medication is received and call clinic. Plan of care compared to information in the medical record, including note from provider on 02/13/22(date). The prescription was found To be complete and accurate. It was e-prescribed to pharmacy. documented in this encounter Plan of Treatment Upcoming Encounters Date Type Department Care Team (Late st Contact Info) Description 02/16/2024 9:15 AM EDT Laboratory Appointment Lab at [facility] Hematology Oncology [address] [place] [address] 02/16/2024 10:20 AM EDT Hospital [place] [address] Mitali Griffiths APRN [facility] DR HEMATOLOGY [place] [address] 02/16/2024 1:30 PM EDT Office Visit Hematology [place] [address] Albino Bartholomew MD [facility] DR HEMATOLOGY [place] [address] 04/17/2024 10:00 AM EST Office Visit Dermatology at [facility] [address] [place] [address] Oli Winter MD [address] [facility] [place] [address] documented as of this encounter Visit Diagnoses Not on filedocumented in this encounter Care Teams Floor Finisher Relationship Specialty Start Date End Date Juan Dempsey MD [address] [place] [address] PCP - General Emergency Medicine 08/20/21 documented as of this encounter
--- OUTSIDE RECORDS SUMMARY | 2024-02-03 16:57 | XMS_ITS | Encounter Summary ---
Author Organization [facility] Address [facility] [place] [address] Care Team Providers Care Draw Furnace Tender Name Role Phone Juan Dempsey MD Primary Care Provider [phone] Encounter Details Date Type Department Care Team (Late st Contact Info) Description 10/24/2021 Telephone [place]ematology [place] [address] Tara Dewey MD [facility] DR HEMATOLOGY/[place] [address] Social History Tobacco Use Types Packs/Day Years [...] encounter Miscellaneous Notes * Telephone Encounter - Tara Dewey MD - 10/24/2021 7:35 AM EDT Reason for call: Swelling Caller: Patient Cristofer Tenorio is a 66 y.o. with diagnosis of pT3aN1 clear cell cancer s/p nephrectomy. Patient state that he is having more swelling in his hands, legs, neck, shoulder and legs. His eyes puffness is at the same. He called yesterday and was instructed to call back if this is not improving. He is drinking a lot of water and peeing a lot. He denies fever, chills, nausea, vomiting, shortness of breath, cough, chest pain, urinary problems, changes in bowel movements. #Generalized swelling Patient is developing generalized swelling since yesterday. I am concerned about his renal functionwhich was increasing on 10/16 at 1.68, in the setting of single kidney. However he said that Betty told him yesterday the kidney is not a problem. I recommend him to have blood work-up done today, but he states that he has an appointment with his PCP in Wednesday. He would like to wait for his main team this morning to have further instructions. I will c.c. them. All questions/concerns were addressed. Patient verbalized understanding and will call for any more questions. This note will be routed to primary oncology/hematology team. Tara Lima M.D. Hematology/Oncology Fellow Pager # [phone] 10/24/21, 7:35 AM Hematology/Oncology Clinic [facility] [place] [address] documented in this encounter Plan of Treatment Upcoming Encounters Date Type Department Care Team (Late st Contact Info) Description 02/16/2024 9:15 AM EDT Laboratory Appointment Lab [place] [facility] [place] [address] [place] [address] 02/16/2024 10:20 AM EDT Hospital [place] [address] Mitali Griffiths APRN [facility] [place] [address] 02/16/2024 1:30 PM EDT Office Visit Hematology and Oncology at [place] [phone] Albino Bartholomew MD [facility] [place] [address] 04/17/2024 10:00 AM EST Office Visit Dermatology at [facility] [address] [place] [address] Oli Winter MD [address] [facility] [place] [address] documented as of this encounter Visit Diagnoses Not on filedocumented in this encounter Care Teams Draw Furnace Tender Relationship Specialty Start Date End Date Juan Dempsey MD [address] [place] [address] PCP - General Emergency Medicine 08/20/21 documented as of this encounter
--- OUTSIDE RECORDS SUMMARY | 2024-02-03 16:57 | XMS_ITS | Encounter Summary ---
Author Organization [facility] Address [facility] [place] [address] Care Team Providers Care Arc Welder Apprentice Name Role Phone Juan Dempsey MD Primary Care Provider [phone] Reason for Referral * Diagnostic Test (Routine) - Closed Specialty Diagnoses / Procedures Referred By Contac t Referred To Contact Diagnoses Renal mass Procedures CT Chest wo Contrast (Generic) Jordan Hou MD [facility] [place] [address] Referral ID Status Reason Start Date Expiration Date V isits Requested Visits Authorized [id number] Closed Specialty Service Requested 05/26/2021 11/23/2022 1 1 Reason for Visit * Diagnostic Test (Routine) - Closed Specialty Diagnoses / Procedures Referred By Contac t Referred To Contact Diagnoses Renal mass Procedures CT Chest wo Contrast (Generic) Jordan Hou MD [facility] [place] [address] Referral ID Status Reason Start Date Expiration Date V isits Requested Visits Authorized [id number] Closed Specialty Service Requested 05/26/2021 11/23/2022 1 1 Encounter Details Date Type Department Care Team (Latest Contact Info) Description 10/16/2021 12:37 PM EDT - 10/16/2021 11:59 PM EDT Hospital Encounter CT Scan at [facility] [place] [address] Jordan Hou MD [facility] [place] [address] Renal mass Discharge Disposition: Home Social History Tobacco Use [...] Sig Dispensed Refills Start Date End Date amLODIPine (Norvasc) 10 mg Tablet TAKE ONE [...] Take 100 mg by mouth daily. 04/11/2019 pantoprazole EC (Protonix) 40 mg Tablet, Delayed Release (E.C.) Take 40 mg by mouth daily. Not currently taking 11/26/2021 predniSONE (Deltasone) 20 mg Tablet 80mg x 1 week, 60mg/day x 1 week, 40mg/day x 1 week, 20mg/day x 1 week, 10mg/day x 1 week 100 tablet 09/17/2021 10/29/2021 atorvastatin (LIPITOR) 20 mg Tablet Take 20 mg by mouth daily. Currently not taking 02/11/2018 03/19/2022 documented as of this encounter Plan of Treatment Upcoming Encounters Date Type Department Care Team (Late st Contact Info) Description 02/16/2024 9:15 AM EDT Laboratory Appointment Lab at [place] Hematology Oncology [address] [place] [address] 02/16/2024 10:20 AM EDT Hospital [place] [address] Mitali Griffiths APRN [facility] [place] [address] 02/16/2024 1:30 PM EDT Office Visit Hematology [place] [address] Albino Bartholomew MD [facility] [address] [place] [address] 04/17/2024 10:00 AM EST Office Visit Dermatology at [facility] [address] [place] [address] Oli Winter MD [address] [facility] [place] [address] documented as of this encounter Procedures Procedure Name Priority Date/Time Associated Diagnosis Comments CT CHEST WO CONTRAST (GENERIC) Routine 10/16/2021 12:49 PM EDT Renal mass documented in this encounter Results * (ABNORMAL) CT Chest wo Contrast (Generic) (10/16/2021 12:49 PM EDT) Anatomical Region Laterality Modality Chest Computed Tomogra phy 10/16/2021 1:06 PM EDT Impressions 10/16/2021 4:28 PM EDT 1. ??Unexpected finding: New 6 mm anterior upper lobe pulmonary nodule. 2. ??New tree-in-bud centrilobular nodularity right middle and lower lobes in keeping with an infectious or inflammatory process. Follow-up to ensure complete resolution suggested. 3. ??Stable exophytic 14 mm right renal cyst. 4. ??Interval retraction of left retroperitoneal inflammatory changes. Thank you for letting us participate in the care of this patient. ??If you are a health care provider and have any questions regarding this report, please contact the number below. ??For patients who have questions please contact the health animal care specialist that requested your imaging first. ? Narrative 10/16/2021 4:28 PM EDT EXAMINATION: CT CHEST WO CONTRAST (GENERIC) CLINICAL HISTORY: Urologic cancer, staging - Include more detail below TECHNIQUE: 3.75 mm thick axial contiguous sections were obtained through the chest via helical acquisition without intravenous contrast administration. Thin-section reconstructions as well as coronal and sagittal reformatted images were generated. COMPARISON: July 20, 2021 FINDINGS: Pulmonary parenchyma: Stable tiny right apical nodule. New 6 mm anterior right upper lobe pulmonary nodule. New tree-in-bud centrilobular nodularity right middle and lower lobes. Stable curvilinear tubular opacity left lower lobe. Airways: No filling defect Pleura: No pleural effusion Lymph nodes: No pathologically enlarged mediastinal, axillary nor hilar lymph nodes Heart, pericardium, and great vessels: Normal size heart without pericardial effusion Other mediastinal structures: No significant findings. Lower neck: No significant findings. Upper abdomen: Stable 14 mm exophytic right renal cyst. Interval retraction of left retroperitoneal inflammatory changes. Body wall soft tissues: No significant findings. Skeletal structures: No suspicious lesions Resulting Agency Comment Unexpected Finding Jordan Hou MD IMG CT ORDERABLES documented in this encounter Visit Diagnoses Diagnosis Renal mass Unspecified disorder of kidney and ureter documented in this encounter Care Teams Arc Welder Apprentice Relationship Specialty Start Date End Date Juan Dempsey MD [address] [place] [address] PCP - General Emergency Medicine 08/20/21 documented as of this encounter
--- OUTSIDE RECORDS SUMMARY | 2024-02-03 16:57 | XMS_ITS | Encounter Summary ---
Author Organization [facility] [place] [address] Care Team Providers Care Item Repair Manager Name Role Phone Juan Dempsey MD Primary Care Provider [phone] Reason for Visit * Reason Onset Date Comments Reminder Appointment 10/31/2021 Encounter Details Date Type Department Care Team (Late st Contact Info) Description 10/31/2021 Telephone [place] [address] Patricia Michaels, [facility] Rem[facility] Appointment Social History Tobacco Use Types Packs/Day Years [...] encounter Miscellaneous Notes * Telephone Encounter - Patricia Michaels CCMA - 10/31/2021 9:31 AM EDT Called patient to review medications and allergies for their upcoming gastroenterology Type of Appointment: Telehealth appointment. Reach Patient during MA Check: Yes Notes for the provider: Notes for the nurse: documented in this encounter Plan of Treatment Upcoming Encounters Date Type Department Care Team (Late st Contact Info) Description 02/16/2024 9:15 AM EDT Laboratory Appointment Lab at [facility] Hematology Oncology [address] [place] [address] 02/16/2024 10:20 AM EDT Hospital [place] [phone] Mitali Griffiths APRN [facility] [place] [address] 02/16/2024 1:30 PM EDT Office Visit Hematology [place] [phone] Albino Bartholomew MD [facility] [place] [address] 04/17/2024 10:00 AM EST Office Visit Dermatology at [address] [place] [address] Oli Winter MD [address] [facility] [place] [address] documented as of this encounter Visit Diagnoses Not on filedocumented in this encounter Care Teams Item Repair Manager Relationship Specialty Start Date End Date Juan Dempsey MD [address] [place] [address] PCP - General Emergency Medicine 08/20/21 documented as of this encounter
--- OUTSIDE RECORDS SUMMARY | 2024-02-03 16:57 | XMS_ITS | Encounter Summary ---
Author Organization [facility] Address [facility] [place] [address] Care Team Providers Care [place] Attorney Name Role Phone Juan Dempsey MD Primary Care Provider [phone] Reason for Visit * Reason Comments Follow-up Encounter Details Date Type Department Care Team (Late st Contact Info) Description 11/26/2021 10:30 AM EDT Office Visit Hematology [place] [address] Albino Bartholomew MD [facility] [address] [place] [address] Kelin Carlos APRN [facility] [address] [place] [address] Renal cell carcinoma, unspecified laterality; Chronic deep vein thrombosis of left popliteal vein; Pulmonary nodule Social History Tobacco Use Types Packs/Day Years [...] Sign Reading Time Taken Comments Blood Pressure 144/73 11/26/2021 10:28 AM EDT Pulse 59 11/26/2021 10:28 AM EDT Temperature 36.7 ??C (98.1 ??F) 11/26/2021 10:28 AM E DT Respiratory Rate 18 11/26/2021 10:28 AM EDT Oxygen Saturation 98% 11/26/2021 10:28 AM EDT Inhaled Oxygen Concentration - - Weight 101.6 kg (224 lb) 11/26/2021 10:28 AM EDT Height 185 cm (6' 0.84) 11/26/2021 10:28 AM EDT Body Mass Index 29.69 11/26/2021 10:28 AM EDT documented in this encounter Progress Notes * Kelin Carlos APRN - 11/26/2021 10:30 AM EDT Images from the original note were not included. [facility] Oncology - Follow Up Visit History of Present Illness: Mr. Tenorio is [...] infections or infectious symptoms. Interval History: Raymundo returns for f/u on kidney cancer. Accompanied by Emily. -Overall, feeling well and back to baseline -Underwent re-staging MRI w/Dr. Hou - KIMBER -Following w/Dr. Pringle/GI on liver function (transaminitis started while on adjuvant immunotherapy (d/c'd after 1 cycle pembro)); taking budesonide as directed -Wondering what the plan is for f/u on lung nodule found on chest CT in October -No constitutional, respiratory, urinary, bowel, or skin concerns -No new swelling -Shoulder main much improved, especially when I'm not [...] Medication Sig Dispense Refill ? ? budesonide (Uceris) 9 mg tablet, delayed & ext.release Take 9 mg by mouth daily. 30 tablet 1 ??? Eliquis 5 mg Tablet TAKE TWO TABLETS BY MOUTH TWICE A DAY FOR 10 DAYS THEN ONE TABLET TWO TIMESA DAY ??? pantoprazole EC (Protonix) 40 mg Tablet, Delayed Release (E.C.) Take 40 mg by mouth daily. Not currently taking ??? 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 Psych: Conversant, normal mood and affect. Vitals reviewed. BP 144/73 (Patient Position: Sitting) Pulse 59 Temp 36.7 ??C (98.1 ??F) (Temporal) Resp 18 Ht 185 cm (6' 0.84) Wt 101.6 kg (224 lb) SpO2 98% BMI 29.69 kg/m?? Wt Readings from Last 3 Encounters: 11/26/21 101.6 kg (224 lb) 10/29/21 100.2 kg (221 lb) 10/08/21 97.4 kg (214 lb 12.8 oz) Lab results: Latest Reference Range & Units 11/26/21 09:13 WBC 4.0 - 9.5 x10(3)/mcL 8.5 RBC 4.58 - 5.54 x10(6)/mcL 5.07 Hemoglobin 13.7 - 16.5 g/dL 14.6 Hematocrit 40.5 - 48.5 % 45.9 MCV 82.9 - 93.1 fL 90.5 MCH 27.5 - 32.1 pg 28.8 MCHC 32.0 - 35.7 g/dL 31.8 (L) RDWSD 36.0 - 45.0 fL 51.2 (H) RDWCV 11.4 - 13.8 % 15.5 (H) Platelets 145 - 357 x10(3)/mcL 213 MPV 7.6 - 12.9 fL 9.4 nRBC % Auto % 0.0 nRBC Abs Auto 0.000 - 0.000 x10(3)/mcL 0.000 Neutr Abs (ANC) 1.70 - 6.10 x10(3)/mcL 6.67 (H) Neutrophils % % 78.4 Immature Gran % % 0.70 Lymphocytes % % 15.3 Monocytes % % 2.6 Eosinophils % % 1.9 Basophils % % 1.1 Roro Gran Abs 0.00 - 0.04 x10(3)/mcL 0.06 (H) Lymphocytes Abs 0.9 - 3.2 x10(3)/mcL 1.3 Monocyte Abs 0.3 - 0.9 x10(3)/mcL 0.2 (L) Eosinophils Abs 0.0 - 0.4 x10(3)/mcL 0.2 Basophils Abs 0.0 - 0.1 x10(3)/mcL 0.1 Sodium 135 - 145 mmol/L 141 Potassium 3.5 - 5.0 mmol/L 3.6 Chloride 98 - 107 mmol/L 104 CO2 22 - 31 mmol/L 28 Anion Gap 5 - 15 mmol/L 9 BUN 10 - 20 mg/dL 25 (H) Creatinine 0.80 - 1.50 mg/dL 1.37 Estimated GFR >=60 mL/min/1.73 m?? 57 (L) Calcium 8.5 - 10.5 mg/dL 9.3 Glucose Lvl 65 - 199 mg/dL 184 Total Protein 6.1 - 8.0 g/dL 6.5 Albumin 3.2 - 5.2 g/dL 4.2 Total Bilirubin 0.2 - 1.3 mg/dL 0.5 Bili, Direct 0.0 - 0.3 mg/dL 0.1 Alk Phos 40 - 130 unit/L 95 AST 0 - 39 unit/L 17 ALT 0 - 55 unit/L 28 (L): Data is abnormally low (H): Data is abnormally high Pathology: 10/02/21 (colonoscopy/biopsy): DIAGNOSIS A - Transverse [...] (pT): ??pT3a ?Regional Lymph Nodes (pN): ??pN1 Imagin11/07/21 MRI Abdomen: IMPRESSION No evidence of local recurrence or metastatic disease in the abdomen and pelvis. 10/20/21 CXR ([facility]): 10/16/21: IMPRESSION 1. Unexpected finding: New 6 [...] We'll send orders and I'll ask our laboratory coordinator to f/u on results. Advised pt to [...] stat referral to GI for official consult. aRymundo agrees with the plan. We will re-check [...] and has recovered from AEs of immunotherapy. L LE DVT: continue Eliquis per PCP. 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 He continues monitoring and management with , scheduled for f/u visit today. Mr. Tenorio asked appropriate questions and verbalized good understanding of and agreement with the plan. I encouraged him to call anytime with questions or concerns and he agreed. Plan: -Chest CT in Jan w/f/u visit to review -Continue f/u with Drs. Pringle and Ameya Discussed case with Dr. Bartholomew who concurs with plan. Mr. Tenorio asked [...] [facility] [place] Oncology [address] [place] [address] 02/16/2024 10:20 AM EDT Hospital [place] [phone] Mitali Griffiths APRN [facility] [address] [place] [address] 02/16/2024 1:30 PM EDT Office Visit Hematology [place] [phone] Albino Bartholomew MD [facility] [address] [place] [address] 04/17/2024 10:00 AM EST Office Visit Dermatology at [address] [place] [address] Oli Winter MD [address] 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
--- OUTSIDE RECORDS SUMMARY | 2024-02-03 16:57 | XMS_ITS | Encounter Summary ---
Author Organization [place] [address] Care Team Providers Care Detective Bowling Alley Name Role Phone Juan Dempsey MD Primary Care Provider [phone] Reason for Referral * Diagnostic Test (Routine) - Closed Specialty Diagnoses / Procedures Referred By Contac t Referred To Contact Radiology Diagnoses Renal cell carcinoma, unspecified laterality Procedures MRI Abdomen wwo Contrast (Generic) Jordan Hou MD [facility] [place] [address] [place] [address] Referral ID Status Reason Start Date Expiration Date V isits Requested Visits Authorized [id number] Closed Specialty Service Requested 10/21/2021 04/22/2023 1 1 Reason for Visit * Diagnostic Test (Routine) - Closed Specialty Diagnoses / Procedures Referred By Contjuan t Referred To Contact Radiology Diagnoses Renal cell carcinoma, unspecified laterality Procedures MRI Abdomen wwo Contrast (Generic) Jordan Hou MD [facility] [place] [address] [place] [address] Referral ID Status Reason Start Date Expiration Date V isits Requested Visits Authorized [id number] Closed Specialty Service Requested 10/21/2021 04/22/2023 1 1 Encounter Details Date Type Department Care Team (Latest Contact Info) Description 11/07/2021 7:10 PM EDT - 11/07/2021 11:59 PM EDT Hospital Encounter MRI at [facility] [place] [address] Jordan Hou MD [facility] [place] [address] Renal cell carcinoma, unspecified laterality [...] 100 mg by mouth daily. 04/11/2019 budesonide (Uceris) 9 mg tablet, delayed & ext.release Take 9 mg by mouth daily. 30 tablet 1 10/29/2021 11/26/2021 pantoprazole EC (Protonix) 40 mg Tablet, Delayed Release (E.C.) Take 40 mg by mouth daily. Not currently taking 11/26/2021 atorvastatin (LIPITOR) 20 mg Tablet Take 20 mg by mouth daily. Currently not taking 02/11/2018 03/19/2022 documented as of this encounter Plan of Treatment Upcoming Encounters Date Type Department Care Team (Late st Contact Info) Description 02/16/2024 9:15 AM EDT Laboratory Appointment Lab at [facility] Hematology Oncology [address] [place] [address] 02/16/2024 10:20 AM EDT Hospital [place] [address] Mitali Griffiths APRN [facility] DR [place] [address] 02/16/2024 1:30 PM EDT Office Visit Hematology [place] [address] Albino Bartholomew MD [facility] [place] [address] 04/17/2024 10:00 AM EST Office Visit Dermatology at [address] [place] [address] Oli Winter MD [address] [facility] [place] [address] documented as of this encounter Procedures Procedure Name Priority Date/Time Associated Diagnosis Comments MRI ABDOMEN WWO CONTRAST Routine 11/07/2021 8:56 PM EDT Renal cell carcinoma, unspecified laterality documented in this encounter Results * MRI Abdomen wwo Contrast (Generic) (11/07/2021 8:56 PM EDT) Anatomical Region Laterality Modality Abdomen Magnetic Resonan ce Impressions 11/08/2021 10:06 AM EDT No evidence of local recurrence or metastatic disease in the abdomen and pelvis. Thank you for letting us participate in the care of this patient. ??If you are a health care provider and have any questions regarding this report, please contact the number below. ??For patients who have questions please contact the health farm or ranch animal caretaker that requested your imaging first. ? Electronically signed by: Tima Zacarias MD, [facility] ([phone]), at 11/08/2021 10:06 AM Narrative 11/08/2021 10:06 AM EDT EXAMINATION: MRI ABDOMEN WWO CONTRAST (GENERIC) CLINICAL HISTORY: Kidney cancer, follow up TECHNIQUE: MRI of the abdomen was performed with images obtained prior to and following the intravenous administration of 20ml Dotarem. The study is somewhat limited due to motion artifact. COMPARISON: July 20, 2021 FINDINGS: Lower chest: Normal. Liver: Normal size and signal intensity. No lesions. Bile ducts: Nondilated. Gallbladder: Decompressed. No gallstones. Normal caliber wall. Pancreas: Normal. Spleen: Normal. Adrenals: Normal. Kidneys: Absent left kidney. Normal right kidney with exception of small simple parenchymal cysts. Vasculature: No aneurysm. Lymph nodes: No enlarged lymph nodes. Bowel: Nondilated, no inflammatory changes. Peritoneum and mesentery: No ascites or loculated fluid collection. Marrow Signal: Normal. Procedure Note Tima Zacarias MD - 11/08/2021 EXAMINATION: MRI ABDOMEN WWO CONTRAST (GENERIC) CLINICAL HISTORY: Kidney cancer, follow up TECHNIQUE: MRI of the abdomen was performed with images obtained prior toand following the intravenous administration of 20ml Dotarem. The study issomewhat limited due to motion artifact. COMPARISON: July 20, 2021 FINDINGS: Lower chest: Normal. Liver: Normal size and signal intensity. No lesions. Bile ducts: Nondilated. Gallbladder: Decompressed. No gallstones. Normal caliber wall. Pancreas: Normal. Spleen: Normal. Adrenals: Normal. Kidneys: Absent left kidney. Normal right kidney with exception of smallsimple parenchymal cysts. Vasculature: No aneurysm. Lymph nodes: No enlarged lymph nodes. Bowel: Nondilated, no inflammatory changes. Peritoneum and mesentery: No ascites or loculated fluid collection. Marrow Signal: Normal. IMPRESSION No evidence of local recurrence or metastatic disease in the abdomen andpelvis. Thank you for letting us participate in the care of this patient. If youare a health care provider and have any questions regarding this report,please contact the number below. For patients who have questions please contactthe health farm or ranch animal caretaker that requested your imaging first. Electronically signed by: Tima Zacarias MD, [facility]([phone]), at 11/08/2021 10:06 AM Jordan Hou MD [facility] MRI ORDERABLES documented in this encounter Visit Diagnoses Diagnosis Renal cell carcinoma, unspecified laterality documented in this encounter Administered Medications Inactive Administered Medications - up to 3 most recent administrations Medication Order MAR Action Action Date Dose Rate Site gadoterate meglumine (Dotarem) (0.5 mMol/mL) injection solution 0-100 mL 0-100 mL, Intravenous, ONCE PRN, 1 dose, Starting on Wed11/07/21 at 2055, Until Wed11/07/21 at 2055, Per Protocol, Radiology Contrast, Routine Given 11/07/2021 8:56 PM EDT 20 mLs documented in this encounter Care Teams Detective Bowling Alley Relationship Specialty Start Date End Date Juan Dempsey MD [address] [place] [address] PCP - General Emergency Medicine 08/20/21 documented as of this encounter
--- OUTSIDE RECORDS SUMMARY | 2024-02-03 16:57 | XMS_ITS | Encounter Summary ---
Author Organization [facility] Address [facility] [place] [address] Care Team Providers Care Paper Sorter And Counter Name Role Phone Juan Dempsey MD Primary Care Provider [phone] Encounter Details Date Type Department Care Team (Late st Contact Info) Description 10/20/2021 Telephone Hematology [place] [address] Daxa Arriola RN Social History [...] Telephone Encounter - Daxa Arriola RN - 10/20/2021 10:41 AM EDT Message received from clinical membership secretary: [phone] Reports 100.8 fever last night, down to 98.8 with tylenol. Also swelling of lower legs, feet and face S/O: Call placed to pt to discuss above. Pt reports that he has new swelling in lower left leg, under bilateral eye, and bilateral hands. Temp this morning 100.8F, took 325 mg Tylenol now 97.8F. Wednesday 100.3F, Wednesday 100.8F, Wednesday 100.8F, 103F . Wednesday took 250 mg Tylenol once, Wednesday no Tylenol. Taking 10 mg of prednisone today, final dose tomorrow. Denies any signs of infections. Tested negative for Covid Th, Fr, Sa, and today. Bilateral swelling in hands, no change to range of motion or speed winder, joints in hands are slightly sore. Left lower leg swollen, denies swelling in right leg. 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 First noticed last ,from knee down. Puffy under eyes, denies blocking vision. Denies pain, redness, change to gait, hotto touch. Above left back of knee, small bunch of nodules, no larger than first examined at time ofdiagnosis. Slightly lightheaded and lack of energy. Denies redness, heat, rash. Denied headache, shortness of breath, palpitations, chest pain/pressure, tightness in throat, and swelling in tongue. BP 160/61, usually 120-125/60-80. Taking blood pressure medications as directed. Not on a blood thinner. Dr. Dempsey, PCP, looking into it as well. A: Dr. Bartholomew patient with clear cell renal cancer. D1C1 Pembrolizumab on 08/07/2021. P: Per Albino Bartholomew MD, call placed to advise pt to go to nearest ED for evaluation. Pt at [facility] ED for doppler as advised by PCP. documented in this encounter Plan of Treatment Upcoming Encounters Date Type Department Care Team (Late st Contact Info) Description 02/16/2024 9:15 AM EDT Laboratory Appointment Lab at [facility] Hematology Oncology [address] [place], [place] [address] 02/16/2024 10:20 AM EDT Hospital [place] [address] Mitali Griffiths APRN [facility] [place] [address] 02/16/2024 1:30 PM EDT Office Visit Hematology [place] [address] Albino Bartholomew MD [facility] [place] [address] 04/17/2024 10:00 AM EST Office Visit Dermatology at [facility] [address] [place] [address] Oli Winter MD [address] [facility] [place] [address] documented as of this encounter Visit Diagnoses Not on filedocumented in this encounter Care Teams Paper Sorter And Counter Relationship Specialty Start Date End Date Juan Dempsey MD [address] [place] [address] PCP - General Emergency Medicine 08/20/21 documented as of this encounter
--- OUTSIDE RECORDS SUMMARY | 2024-02-03 16:57 | XMS_ITS | Encounter Summary ---
Author Organization [facility] Address [facility] [place] [address] Care Team Providers Care Hearing Therapist Name Role Phone Juan Dempsey MD Primary Care Provider [phone] Encounter Details Date Type Department Care Team (Late st Contact Info) Description 11/05/2021 Telephone Hematology [place] [address] Daxa Arriola RN Social History [...] Telephone Encounter - Daxa Arriola RN - 11/05/2021 9:59 AM EDT Images from the original note were not included. Messages received: Kelin Carlos APRN Davis, Robin, RN; P [facility] Hem Onc Triage Gu Gilson Sanders. We only checked CMP since we were just wanting to f/u on LFTs with this draw. Thanks, Jennifer ?? Previous Messages ?? ----- Message ----- From: Gilson Tobar, RN Sent: 11/04/2021 ?? 5:11 PM EDT To: Kelin Carlos APRN Subject: RE: Cmp in from [facility] ? Hi! I gave him a call and let him know - he was concerned because his CBC did not get drawn today -not sure what happened. He was thinking he was supposed to have weekly blood tests and was wondering if there was more blood work needed for 11/12. I told him I would pass on the message. Gilson Sanders Called pt to notify of above. Pt verbalized understanding of reasoning for CMP. documented in this encounter Plan of Treatment Upcoming Encounters Date Type Department Care Team (Lucero jordan Contact Info) Description 02/16/2024 9:15 AM EDT Laboratory Appointment Lab at [facility] Hematology Oncology [address] [place] [address] 02/16/2024 10:20 AM EDT Hospital [place] [address] Mitali Griffiths APRN [facility] DR HEMATOLOGY [place] [address] 02/16/2024 1:30 PM EDT Office Visit Hematology and Oncology at [place] [phone] Albino Bartholomew MD [facility] DR HEMATOLOGY [place] [address] 04/17/2024 10:00 AM EST Office Visit Dermatology at [facility] [address] [place] [address] Oli Winter MD [address] [facility] [place] [address] documented as of this encounter Visit Diagnoses Not on filedocumented in this encounter Care Teams Hearing Therapist Relationship Specialty Start Date End Date Juan Dempsey MD [address] [place] [address] PCP - General Emergency Medicine 08/20/21 documented as of this encounter
--- OUTSIDE RECORDS SUMMARY | 2024-02-03 16:57 | XMS_ITS | Encounter Summary ---
Author Organization [facility] Address [facility] [place] [address] Care Team Providers Care Manager Study Name Role Phone Juan Dempsey MD Primary Care Provider [phone] Encounter Details Date Type Department Care Team (Late st Contact Info) Description 10/23/2021 Telephone Hematology [place] [address] Daxa Arriola RN Social History [...] Telephone Encounter - Daxa Arriola RN - 10/23/2021 8:56 AM EDT Message received from clinical health information specialist: [phone] - patient called - had bloodwork done this morning ??Also was in the ED for a blood clotting issue. ??Is no longer taking Prednisone, is down to0 tabs. ??Is wondering what the next steps may be Per Albino Bartholomew MD, If LFTs going up, put him on steroids. 40 mg prednisone daily. S/O: Call placed to pt to discuss above. Pt states that he was put on Eliquis because of a blood clot in left leg. Instructed to restart prednisone at 40 mg daily. In talking with Mary Merino MD who did colonoscopy, she told pt that there are alternatives to prednisone that might work better. Suggested that she and Dr. Bartholomew discuss it. Swelling in left leg and hands; eyes are puffy. Swollen on right side of neck, at collarbone area, new as of yesterday. Left side of biceps and shoulder area are painful, began 2 weeks ago, Tylenol helps; may be injury related. Sore in joints of hands. Seeing Dr. Dempsey on Wednesday, Oli Winter on Wednesday with bloodwork. 10 am Telehealth with Jennifer on Wednesday...wants in person. Dr. Hou ordering an MRI of abdomen because CT showed something inlungs. Not yet scheduled. P: Message sent to Roxie. Per Dr. Bartholomew, pt may follow Dr. Merino's plan. He is unable to reach out to Dr. Merino today. Left detailed message for pt stating that he may follow Dr. Merino's recommendations. Dr. Bartholomew reaching out to Dr. Merino and will follow-up with pt. Pt advised to call office at with any worsening symptoms or concerns. Pt in agreementwith plan. documented in this encounter Plan of Treatment Upcoming Encounters Date Type Department Care Team (Late st Contact Info) Description 02/16/2024 9:15 AM EDT Laboratory Appointment Lab at [facility] Hematology Oncology [address] [place] [address] 02/16/2024 10:20 AM EDT Hospital [place] [phone] Mitali Griffiths APRN [facility] DR HEMATOLOGY [place] [address] 02/16/2024 1:30 PM EDT Office Visit Hematology [place] [phone] Albino Bartholomew MD [facility] DR HEMATOLOGY [place] [address] 04/17/2024 10:00 AM EST Office Visit Dermatology at [facility] [address] [place] [address] Oli Winter MD [address] [facility] [place] [address] documented as of this encounter Visit Diagnoses Not on filedocumented in this encounter Care Teams Manager Study Relationship Specialty Start Date End Date Juan Dempsey MD [address] [place] [address] PCP - General Emergency Medicine 08/20/21 documented as of this encounter
--- OUTSIDE RECORDS SUMMARY | 2024-02-03 16:57 | XMS_ITS | Encounter Summary ---
Author Organization [facility] Address [facility] [address] Care Team Providers Care Parimutuel Ticket Seller Name Role Phone Juan Dempsey MD Primary Care Provider [phone] Encounter Details Date Type Department Care Team (Late st Contact Info) Description 10/15/2021 Telephone [place]ology [place] [address] Daxa Arriola RN Social History [...] Telephone Encounter - Daxa Arriola RN - 10/15/2021 10:17 AM EDT Message received from triage pool: Nursing: will continue weekly CMP for f/u on liver function and Cr at [facility] Prednisone taper weekly if LFTs are stable. 10/08-10/15 20mg/day x 1 week 10/16-10/22 10mg/day x 1 week, then stop Labs requested from clinical secretary receptionist. Labs not received by end of day 10/15. Clinical secretary receptionist states repeated request and awaiting results. Triage to follow-up on 10/16. documented in this encounter Plan of Treatment Upcoming Encounters Date Type Department Care Team (Late st Contact Info) Description 02/16/2024 9:15 AM EDT Laboratory Appointment Lab at [facility] [place] Oncology [address] [place] [address] 02/16/2024 10:20 AM EDT Hospital [place] [address] Mitali Griffiths APRN [facility] DR HEMATOLOGY [place] [address] 02/16/2024 1:30 PM EDT Office Visit [place] [address] Albino Bartholomew MD [facility] [place] [address] 04/17/2024 10:00 AM EST Office Visit Dermatology at [address] [place] [address] Oli Winter MD [address] [facility] [place] [address] documented as of this encounter Visit Diagnoses Not on filedocumented in this encounter Care Teams Parimutuel Ticket Seller Relationship Specialty Start Date End Date Juan Dempsey MD [address] [place] [address] PCP - General Emergency Medicine 08/20/21 documented as of this encounter
--- OUTSIDE RECORDS SUMMARY | 2024-02-03 16:57 | XMS_ITS | Encounter Summary ---
Author Organization [facility] Address [facility] [place] [address] Care Team Providers Care Station Repairer Name Role Phone Juan Dempsey MD Primary Care Provider [phone] Reason for Referral * Diagnostic Test (Routine) - Closed Specialty Diagnoses / Procedures Referred By Contjuan t Referred To Contact Radiology Diagnoses Renal cell carcinoma, unspecified laterality Procedures MRI Abdomen wwo Contrast (Generic) Jordan Hou MD [facility] [place] [address] [place] [address] Referral ID Status Reason Start Date Expiration Date V isits Requested Visits Authorized [id number] Closed Specialty Service Requested 10/21/2021 04/22/2023 1 1 Encounter Details Date Type Department Care Team (Latest Contact Info) Description 10/21/2021 10:00 AM EDT TH Visit (TeleHealth) [place] [address] Jordan Hou MD [facility] [place] [address] Renal cell carcinoma, unspecified laterality Social History Tobacco Use Types [...] as of this encounter Progress Notes * Jordan Hou MD - 10/21/2021 10:00 AM EDT UROLOGY TELEHEALTH VISIT Prior to beginning the visit, I confirmed the patients name and date of . I obtained the patient's consent to receiving health care services at [facility] through telemedicine. The patient acknowledges that the insurance may be billed for the care provided, similar to an in person appointment. The patient's problem is suitable for a telephone visit. HPI: Mr Davey is s/p left radical nephrectomy for pT3N1 RCC. He started adjuvant pembrolizumab but developed hepatitis and has been on steroids for the last several weeks. He was also diagnosed with a left sided DVT yesterday and was started on Eliquis. He denies any hematuria, dysuria or unexplained pain. He underwent a CT chest which showed a new right apical pulmonary nodule, 6mm in size. ?Addendum ADDENDUM DISCUSSION Immunostains on block A4 show the tumor cells are positive for Pax8, E-cadherin, CD10 ??(membranous staining), and CAIX (membranous staining), partially positive for RANJIT ??and p504S, and negative for CKIT, CK7 and GATA3. The results support the diagnosis. Immunohistochemistry Studies: Formalin-fixed, paraffin-embedded tissue sections are studied using the polymer ??technique with appropriate positive and negative controls. ?These IHC studies ??provide the pathologist with adjunctive diagnostic information. Antibody specificity ??has been verified by testing antibodies on a series of in-house tissues with known ??immunohistochemical performance characteristics. The clinical interpretation of ??any antibody positive staining or its absence is evaluated within the context of ??clinical presentation, morphology, histopathological criteria and other diagnostic ??tests. Electronically signed by: ?Renea Acuna MD Verified: ??07/02/2021 11:14 ??Pathologist Performed at: ??-[facility] Dept. of Pathology, [place], [place] ? Surgical Pathology DIAGNOSIS A - Left Kidney, biopsy (1) Clear cell renal cell carcinoma, pT3a N1, see synoptic report. Electronically signed by: ?Renea Acuna MD Verified: ??07/02/2021 10:38 ??Pathologist Performed at: ??-[facility] Dept. of Pathology, [place], [place] SYNOPTIC Specimen Parts: ??A Specimen ?Procedure: ??Radical nephrectomy ?Specimen Laterality: ??Left Tumor ?Tumor Focality: ??Unifocal ?Tumor Site: ??Middle; ??Lower pole [...] Robert Metastatic Deposit: ??Less than 0.1 cm . SYNOPTIC ? Size of Largest Lymph Node with Tumor: ??0.7 cm ?Number of Lymph Nodes Examined: ??3 Pathologic Stage Classification (pTNM, AJCC 8th Edition) ?Primary Tumor (pT): ??pT3a ?Regional Lymph Nodes (pN): ??pN1 Additional Findings ?Additional Findings in Nonneoplastic Kidney: ??None identified Additional Non-Tumor ?Adrenal Gland: ??Not present Tumor Block(s): ??A3 to A16 Normal Block(s): ??A17 CAP eCC October 2020 Release Past Medical History: Diagnosis Date ??? Claudication lower left leg , due to achilles surgery 2000 ??? High blood pressure losartan 100mg ??? Hyperlipidemia atorvastatin 20mg ??? Renal cell carcinoma 07/16/2021 Past Surgical History: Procedure Laterality Date ??? ACHILLES TENDON SURGERY ??? HERNIA REPAIR Left inguinal ??? PRO COLONOSCOPY, DIAGNOSTIC N/A 10/02/2021 COLONOSCOPY, DIAGNOSTIC performed by Jordyn Merino MD at [facility] ENDOSCOPY ??? PRO CYSTOURETHROSCOPY N/A 06/23/2021 CYSTO, CYSTOURETHROSCOPY, DIAGNOSTIC (WRVU 2.23) performed by Jordan Hou MD at [facility] MAIN OR ??? PRO REMV KIDNEY, RADICAL Left 06/23/2021 @NEPHRECTOMY, RADICAL W\REG LYMPHADENECTOMY &\OR VENA CAVA THROMBECTOMY (WRVU 23.81) performed by Jordan Hou MD at [facility] MAIN OR Social History Socioeconomic History ??? Marital status: [...] Unstable Housing in the Last Year: No Family History Problem Relation Age of Onset ??? Lymphoma Mother ??? Breast Cancer Mother ??? Pancreatic Cancer Brother ROS: negative for fever, chills, nausea, vomiting, diarrhea, constipation, hematuria, dysuria, CP, SOB Alert, oriented, nad EXAMINATION: CT CHEST WO CONTRAST (GENERIC) 10/16/2021 ?? CLINICAL HISTORY: Urologic cancer, staging - Include more detail below ? TECHNIQUE: 3.75 mm thick axial contiguous sections were obtained through the chest via helical acquisition without intravenous contrast administration. Thin-section reconstructions as well as coronal and sagittal reformatted images were generated. ?? COMPARISON: July 20, 2021 ?? FINDINGS: Pulmonary parenchyma: Stable tiny right apical [...] significant findings. Skeletal structures: No suspicious lesions ?? IMPRESSION 1. Unexpected finding: New 6 mm anterior upper lobe pulmonary nodule. 2. New tree-in-bud centrilobular nodularity right middle and lower lobes in keeping with an infectious or inflammatory process. Follow-up to ensure complete resolution suggested. 3. Stable exophytic 14 mm right renal cyst. 4. Interval retraction of left retroperitoneal inflammatory changes. A/P: #S/p radical left nephrectomy for pT3N1 ccRCC, G4 #Pulmonary nodules #newly diagnosed DVT I explained to him the findings of the CT chest and recommended to schedule a staging MRI abdomen. I will discuss further management options with Dr Bartholomew. 25 minutes were spent in counseling and coordination of care. documented in this encounter Plan of Treatment Upcoming Encounters Date Type Department Care Team (Late st Contact Info) Description 02/16/2024 9:15 AM EDT Laboratory Appointment Lab at [facility] Hematology Oncology [address] [place] [address] 02/16/2024 10:20 AM EDT Hospital Encounter CT Scan at [place] [phone] Mitali Griffiths APRN [facility] DR HEMATOLOGY AND ONCOLOGY [place] [phone] 02/16/2024 1:30 PM EDT Office Visit Hematology [place] [address] Albino Bartholomew MD [facility] DR HEMATOLOGY [place] [address] 04/17/2024 10:00 AM EST Office Visit Dermatology at [facility] [address] [place] [address] Oli Winter MD [address] [facility] [place] [address] documented as of this encounter Results * [...] have questions please contact the health healthcare representative that requested your imaging first. ? Electronically signed by: Tima Zacarias MD, [facility] ([phone]), at 11/08/2021 10:06 AM Narrative 11/08/2021 10:06 [...] who have questions please contactthe health healthcare representative that requested your imaging first. Electronically signed by: Tima Zacarias MD, [facility]([phone]), at 11/08/2021 10:06 AM Jordan Hou MD IMG MRI ORDERABLES documented in this encounter Visit Diagnoses Diagnosis Renal cell carcinoma, unspecified laterality Renal cell carcinoma, unspecified laterality documented in this encounter Care Teams Station Repairer Relationship Specialty Start Date End Date Juan Dempsey MD [address] [place] [address] PCP - General Emergency Medicine 08/20/21 documented as of this encounter
--- OUTSIDE RECORDS SUMMARY | 2024-02-03 16:57 | XMS_ITS | Encounter Summary ---
Author Organization [facility] Address [facility] [place] [address] Care Team Providers Care Administrative Sales Assistant Name Role Phone Juan Dempsey MD Primary Care Provider [phone] Reason for Visit * Auth/Cert Specialty Diagnoses / Procedures Referred By Contjuan t Referred To Contact Diagnoses positive cologard, screening Procedures PRO COLONOSCOPY, DIAGNOSTIC COLONOSCOPY, DIAGNOSTIC Referral ID Status Reason Start Date Expiration Date Visits Re quested Visits Authorized [id number] 1 1 Encounter Details Date Type Department Care Team (Latest Contact Info) Description 10/02/2021 1:44 PM EDT - 10/02/2021 4:25 PM EDT Hospital Encounter [place] [address] Jordyn Merino MD [facility] [place] [address] Discharge Disposition: Home Social History Tobacco Use [...] Sign Reading Time Taken Comments Blood Pressure 121/66 10/02/2021 4:10 PM EDT Pulse 56 10/02/2021 3:45 PM EDT Temperature 36.3 ??C (97.4 ??F) 10/02/2021 2:04 PM ED T Respiratory Rate 14 10/02/2021 4:10 PM EDT Oxygen Saturation 95% 10/02/2021 4:10 PM EDT Inhaled Oxygen Concentration - - Weight 95.3 kg (210 lb) 10/02/2021 2:04 PM EDT Height 181 cm (5' 11.26) 10/02/2021 2:04 PM EDT Body Mass Index 29.08 10/02/2021 2:04 PM EDT documented in this encounter Discharge Instructions * Attachments The following attachments cannot be sent through Care Everywhere. * Colonoscopy: Post-op (Greek) documented in this encounter Medications at Time [...] 02/11/2018 03/19/2022 documented as of this encounter H&P Notes * Jordyn Merino MD - 10/02/2021 3:03 PM EDT Gastroenterology and Hepatology Pre-Procedure History and Physical Exam Procedure: Colonoscopy: Indication: +cologuard Patient Active Problem List Diagnosis Code ??? Renal mass N28.89 ??? Renal cell carcinoma C64.9 ??? Medication management Z79.899 EXAM: HEENT: Airway examined, oropharynx clear Mallampati Score: II (soft palate, uvula, fauces visible) LUNGS: Clear to auscultation HEART: Regular rate and rhythm, normal S1, S2 ABDOMEN: Normal bowel sounds, soft, non tender, non distended, A/P Proceed with the planned endoscopic procedure. ASA 2 - Patient with mild systemic disease with no functional limitations Sedation Plan: moderate (conscious sedation) Risks and benefits of the procedure explained to the patient. Consent signed. documented in this encounter Plan of Treatment Upcoming Encounters Date Type Department Care Team (Late st Contact Info) Description 02/16/2024 9:15 AM EDT Laboratory Appointment Lab at [facility] Hematology Oncology [address] [place] [address] 02/16/2024 10:20 AM EDT Hospital [place] [address] Mitali Griffiths APRN [facility] [address] [place] [address] 02/16/2024 1:30 PM EDT Office Visit Hematology [place] [address] Albino Bartholomew MD [facility] [place] [address] 04/17/2024 10:00 AM EST Office Visit Dermatology at [facility] [address] [place] [address] Oli Winter MD [address] [facility] [place] [address] documented as of this encounter Procedures Procedure Name Priority Date/Time Associated Diagnosis Comments SURGICAL PATHOLOGY REPORT Routine 10/02/2021 3:47 PM EDT SPECIMEN TO PATHOLOGY Routine 10/02/2021 3:47 PM EDT Colonoscopy, Diagnostic ([id number]) 10/02/2021 3:20 PM EDT positive cologard, screening COLONOSCOPY Routine 10/02/2021 3:02 PM EDT documented in this encounter Results * Surgical Pathology Report (10/02/2021 3:47 PM EDT) Final Diagnosis [id number] ? Location: 4T; EA13; A The signing pathologist has (i) examined the relevant preparation(s) for the specimen(s) and (ii) rendered or confirmed the diagnosis(es). . ?Surgical Pathology DIAGNOSIS A - Transverse colon polyp, resection: - ??Tubular adenoma. Electronically signed by: ?Armand CRAVEN, Renea Verified: ??10/09/2021 16:09 ??Pathologist Performed at: ??-[facility] Dept. of Pathology, [place], [place] SPECIMEN(S) SUBMITTED A - Transverse colon polyp, resection (1) CLINICAL INFORMATION Screening colonoscopy SPECIMEN PROCESSING A - Labeled/Fixativ e: Transverse colon polyp, formalin. Quantity/Size: Single, 0.3 x 0.3 x 0.2 cm. Tissue Description: Partially flattened tinajreo-red mucosal polyp and underlying translucent mucosal tissue. Sections/Proces sing: Submitted en toto ??in 1 cassette labeled A1. ??shb 10/09/2021 4:09 PM EDT [facility] GI Biopsy 10/02/2021 3:47 PM EDT 10/02/2021 3:47 PM EDT Jordyn Merino MD PATHOLOGY/CYTOLOGY O WILLIAM Performing Organization Address [facility] Co de Phone Number [facility] [place] [address] * Specimen to Pathology (10/02/2021 3:47 PM EDT) AP Specimen 10/02/2021 3:47 PM EDT 10/02/2021 3:47 PM EDT Narrative [facility] - 10/02/2021 3:47 PM EDT Specimen requisition ordered. ??Separate Pathology report to follow Jordyn Merino MD PATHOLOGY/CYTOLOGY O WILLIAM Performing Organization Address [facility] Co de Phone Number [facility] [place] [address] * COLONOSCOPY (10/02/2021 3:02 PM EDT) COLONOSCOPY [facility] Endoscopy Procedure Date: 10/02/2021 3:02 PM ? Patient Name: Raymundo Tenorio ? Date of : 1955 ? Age: 66 ? Order #: [id number] ? Instrument Name: [id number] ? Procedure: ? Colonoscopy Indications: ? Positive Cologuard test Providers: ? Jordyn Merino MD, Jennyfer Armando, ? DUANE, Landon Baires Referring : ?Juan Dempsey MD Medicines: ? [...] Dempsey MD GENERAL SURGICAL ORD ERABLES [employer]OVATION documented in this encounter Visit Diagnoses Not on filedocumented in this encounter Administered Medications Inactive Administered Medications - up to 3 most recent administrations Medication Order MAR Action Action Date Dose Rate Site lactated ringers infusion 100 mL/hr, Intravenous, CONTINUOUS, Starting on Yuliet 10/02/21 at 1415, Until Yuliet 10/02/21 at 1617, Endoscopy (Day of Procedure) New Bag 10/02/2021 2:31 PM EDT 100 mL/hr 100 mL/hr documented in this encounter Active and Recently Administered Medications Times are shown in EDT. Continuous Medication Order 09/30/2021 10/01/2021 10/02/2021 lactated ringers infusion (CANCELED) 100 mL/hr, Intravenous, CONTINUOUS, Starting on Yuliet 10/02/21 at 1415, Until Yuliet 10/02/21 at 1617, Endoscopy (Day of Procedure) 1431 (New Bag - Prov ider: Juan Clark RN) PRN Medication Order 09/30/2021 10/01/2021 10/02/2021 fentaNYL (pf) (50 mcg/mL) multi-dose injection (CANCELED) ONCE PRN, Starting on Yuliet 10/02/21 at 1520, Until Yuliet 10/02/21 at 1835, Intra-Operative (Intra-Procedure), Routine 1520 (Given - Provid er: Jennyfer Armando RN)1526 (Given - Provider: Jennyfer Armando RN) midazolam (pf) (Versed) (1 mg/mL) multi-dose injection (CANCELED) ONCE PRN, Starting on Yuliet 10/02/21 at 1520, Until Yuliet 10/02/21 at 1835, Intra-Operative (Intra-Procedure), Routine 1520 (Given - Provid er: Jennyfer Armando RN)1527 (Given - Provider: Jennyfer Armando RN)1529 (Given - Provider: Jennyfer Armando RN)1531 (Given - Provider: Jennyfer Armando RN) documented in this encounter Care Teams Administrative Sales Assistant Relationship Specialty Start Date End Date Juan Dempsey MD [address] [place] [address] PCP - General Emergency Medicine 08/20/21 documented as of this encounter
--- OUTSIDE RECORDS SUMMARY | 2024-02-03 16:57 | XMS_ITS | Encounter Summary ---
Author Organization [facility] Address [facility] [place] [address] Care Team Providers Care Administrative Underwriter Name Role Phone Juan Dempsey MD Primary Care Provider [phone] Reason for Visit * Consultation (Emergency) - Closed Specialty Diagnoses / Procedures Referred By Burak t Referred To Contact Gastroenterology Diagnoses Elevated LFTs Kelin Carlos APRN [facility] [address] [place] [address] Jordyn Merino MD [facility] [address] Referral ID Status Reason Start Date Expiration Date V isits Requested Visits Authorized [id number] Closed Specialty Service Requested 10/29/2021 10/29/2022 1 1 Encounter Details Date Type Department Care Team (Latest Contact Info) Description 10/31/2021 2:00 PM EDT TH Visit (TeleHealth) [place] [id number] Ana Pringle MD [facility] [place] [address] Drug-induced hepatitis; Autoimmune hepatitis Social History Tobacco Use Types [...] Progress Notes * Ana Pringle MD - 10/31/2021 2:00 PM EDT GASTROENTEROLOGY TELEHEALTH PROGRAM - NEW PATIENT VISIT Chief Complaint: Raymundo Tenorio is a 66 y.o. patient referred for consultation by Dr. Carlos for elevated liver enzymes. History of Present Illness: 66 y.o. male with history of renal cell carcinoma status post radical nephrectomy in June 2021. He received adjuvant pembrolizumab on August 07. His liver enzymes were normal other than a mild elevation in alkaline phosphatase prior to receiving the pembrolizumab. Follow- up labs on August 27 noted a grade 4 transaminitis and the pembrolizumab was discontinued along with his atorvastatin. He was started on 100 mg of prednisone which was tapered and discontinued on September 13. His AST and ALT trended upwards on repeat labs on September 17 and he was restarted on prednisone 80mg. His steroids were then tapered again and he had normalization of his AST by October 01 with continued mild elevation in ALT. His steroids were then discontinued and he again had elevation in the 1-200 range of AST and ALT and he was restarted on prednisone 20 mg daily. After review with Dr. Merino who reviewed that for colonoscopy his prednisone was stopped and he was started on budesonide 9 mg yesterday. He does not drink any alcohol. He has noted some swelling in his hands with aching. His left lower limb edema has improved. No jaundice, ascites, itching, or abdominal pain. No history of liver disease. He has history of hyperlipidemia. No risk factors for viral hepatitis. He reports PCP checked Hep B and Hep C in the last month and was negative. Radical nephrectomy for RCC on June 20 He received one dose of adjuvant pembrolizumab on August 07. Next visit on 08/28/19 he had transiminitis grade 4, pembro was d/adithya and atorvastatin was also stopped 08/27/21 Total Bilirubin: 0.6 (Reference Range & Units 0.2 - 1.3 mg/dL) Alk Phos: 198 (H) (Reference Range & Units 40 - 130 unit/L) AST: 308 (H) (Reference Range & Units 0 - 39 unit/L) ALT: 707 (H) (Reference Range & Units 0 - 55 unit/L) Started prednisone 100 [...] 10/28/21 09:41 Total Bilirubin: 0.5 (Reference Range & Units 0.2 - 1.3 mg/dL) Alk Phos: 102 (Reference Range & Units 40 - 130 unit/L) AST: 44 (H) (Reference Range & Units 0 - 39 unit/L) ALT: 157 (H) (Reference Range & Units 0 - 55 unit/L) He is currently on prednisone 20 mg. Start budesonide 9 mg on 10/30/2021 and stopped prednisone Latest Reference Range & Units 08/07/21 09:11 08/27/21 12:16 08/29/21 08:36 09/01/21 09:09 09/04/21 09:30 09/08/21 15:48 09/10/21 12:50 09/17/21 12:27 09/24/21 00:00 10/01/21 00:00 10/08/21 12: 09:41 Total Bilirubin 0.2 - 1.3 mg/dL 0.3 0.6 0.4 (E) 0.3 (E) 0.4 (E) 0.4 (E) 0.5 (E) 0.5 0.4 (E) 0.7 (E)0.6 0.5 Alk Phos 40 - 130 unit/L 153 (H) 198 (H) 188 ! (E) 158 ! (E) 137 ! (E) 123 ! (E) 116 (E) 131 (H) 127 ! (E) 108 (E) 96 102 AST 0 - 39 unit/L 23 308 (H) 162 ! (E) 67 ! (E) 35 (E) 29 (E) 30 (E) 65 (H) 24 (E) 15 (E) 25 44 (H) ALT 0 - 55 unit/L 49 707 (H) 779 ! (E) 473 ! (E) 274 ! (E) 166 ! (E) 153 ! (E) 166 (H) 111 ! (E) 58(E) 45 157 (H) Review of systems: 14-point review of systems [...] (E.C.) Take 40 mg by mouth daily. ??? amLODIPine (Norvasc) 10 mg Tablet [...] Tablet Take 20 mg by mouth daily. No facility-administered medications prior to visit. Allergies: is allergic to peanut and seasonale (91) [levonorgestrel-ethinyl estrad]. Past Medical History: has a past medical history of Claudication, High blood pressure, Hyperlipidemia, and Renal cell carcinoma (07/16/2021). Past Surgical History: has a past surgical history that includes hernia repair (Left); Achilles tendon surgery; Remv Kidney, Radical (73701) (Left, 06/23/2021); Cystourethroscopy (09066) (N/A, 06/23/2021); and Colonoscopy, Diagnostic (91690) (N/A, 10/02/2021). Family History: family history includes [...] and procedures (my review of prior records): Laboratory Appointment on 10/28/2021 Component Date Value Ref Range Status ??? Glucose Lvl 10/28/2021 130 65 - 199 mg/dL Final ??? BUN 10/28/2021 22 (A) 10 - 20 mg/dL Final ??? Creatinine 10/28/2021 1.25 0.80 - 1.50 mg/dL Final ??? Sodium 10/28/2021 139 135 - 145 mmol/L Final ??? Potassium 10/28/2021 4.1 3.5 - 5.0 mmol/L Final ??? Chloride 10/28/2021 105 98 - 107 mmol/L Final ??? CO2 10/28/2021 29 22 - 31 mmol/L Final ??? Anion Gap 10/28/2021 5 5 - 15 mmol/L Final ??? Calcium 10/28/2021 9.0 8.5 - 10.5 mg/dL Final ??? Total Protein 10/28/2021 6.0 (A) 6.1 - 8.0 g/dL Final ??? Albumin 10/28/2021 3.8 3.2 - 5.2 g/dL Final ??? AST 10/28/2021 44 (A) 0 - 39 unit/L Final ??? ALT 10/28/2021 157 (A) 0 - 55 unit/L Final ??? Alk Phos 10/28/2021 102 40 - 130 unit/L Final ??? Total Bilirubin 10/28/2021 0.5 0.2 - 1.3 mg/dL Final ? ? Estimated GFR 10/28/2021 64 >=60 mL/min/1.73 m?? Final ??? WBC 10/28/2021 9.3 4.0 - 9.5 x10(3)/mcL Final ??? RBC 10/28/2021 4.37 (A) 4.58 - 5.54 x10(6)/mcL Final ??? Hemoglobin 10/28/2021 12.2 (A) 13.7 - 16.5 g/dL Final ??? Hematocrit 10/28/2021 38.4 (A) 40.5 - 48.5 % Final ??? MCV 10/28/2021 87.9 82.9 - 93.1 fL Final ??? MCH 10/28/2021 27.9 27.5 - 32.1 pg Final ??? MCHC 10/28/2021 31.8 (A) 32.0 - 35.7 g/dL Final ??? Platelets 10/28/2021 275 145 - 357 x10(3)/mcL Final ??? RDWSD 10/28/2021 53.2 (A) 36.0 - 45.0 fL Final ??? RDWCV 10/28/2021 16.6 (A) 11.4 - 13.8 % Final ??? MPV 10/28/2021 9.7 7.6 - 12.9 fL Final ??? nRBC % Auto 10/28/2021 0.0 % Final ??? nRBC Abs Auto 10/28/2021 0.000 0.000 - 0.000 x10(3)/mcL Final ??? Neutrophils % 10/28/2021 77.2 % Final ??? Neutr Abs (ANC) 10/28/2021 7.15 (A) 1.70 - 6.10 x10(3)/mcL Final ??? Lymphocytes % 10/28/2021 11.8 % Final ??? Lymphocytes Abs 10/28/2021 1.1 0.9 - 3.2 x10(3)/mcL Final ??? Monocytes % 10/28/2021 5.2 % Final ??? Monocyte Abs 10/28/2021 0.5 0.3 - 0.9 x10(3)/mcL Final ??? Eosinophils % 10/28/2021 0.2 % Final ??? Eosinophils Abs 10/28/2021 0.0 0.0 - 0.4 x10(3)/mcL Final ??? Basophils % 10/28/2021 0.6 % Final ??? Basophils Abs 10/28/2021 0.1 0.0 - 0.1 x10(3)/mcL Final ??? Immature Gran % 10/28/2021 5.00 % Final ??? Roro Gran Abs 10/28/2021 0.46 (A) 0.00 - 0.04 x10(3)/mcL Final Laboratory Appointment on 10/16/2021 Component Date Value Ref Range Status ??? Glucose Lvl 10/16/2021 128 65 - 199 mg/dL Final ??? BUN 10/16/2021 25 (A) 10 - 20 mg/dL Final ??? Creatinine 10/16/2021 1.62 (A) 0.80 - 1.50 mg/dL Final ??? Sodium 10/16/2021 136 135 - 145 mmol/L Final ??? Potassium 10/16/2021 4.7 3.5 - 5.0 mmol/L Final ??? Chloride 10/16/2021 101 98 - 107 mmol/L Final ??? CO2 10/16/2021 25 22 - 31 mmol/L Final ??? Anion Gap 10/16/2021 10 5 - 15 mmol/L Final ??? Calcium 10/16/2021 8.7 8.5 - 10.5 mg/dL Final ? ? Estimated GFR 10/16/2021 47 (A) >=60 mL/min/1.73 m?? Final Hospital Outpatient Visit on 10/08/2021 Component Date Value Ref Range Status ??? Glucose Lvl 10/08/2021 134 65 - 199 mg/dL Final ??? BUN 10/08/2021 41 (A) 10 - 20 mg/dL Final ??? Creatinine 10/08/2021 1.68 (A) 0.80 - 1.50 mg/dL Final ??? Sodium 10/08/2021 137 135 - 145 mmol/L Final ??? Potassium 10/08/2021 4.8 3.5 - 5.0 mmol/L Final ??? Chloride 10/08/2021 102 98 - 107 mmol/L Final ??? CO2 10/08/2021 24 22 - 31 mmol/L Final ??? Anion Gap 10/08/2021 11 5 - 15 mmol/L Final ??? Calcium 10/08/2021 9.1 8.5 - 10.5 mg/dL Final ??? Total Protein 10/08/2021 6.4 6.1 - 8.0 g/dL Final ??? Albumin 10/08/2021 4.0 3.2 - 5.2 g/dL Final ??? AST 10/08/2021 25 0 - 39 unit/L Final ??? ALT 10/08/2021 45 0 - 55 unit/L Final ??? Alk Phos 10/08/2021 96 40 - 130 unit/L Final ??? Total Bilirubin 10/08/2021 0.6 0.2 - 1.3 mg/dL Final ? ? Estimated GFR 10/08/2021 42 (A) >=60 mL/min/1.73 m?? Final ??? TSH 10/08/2021 1.18 0.27 - 4.20 mcIU/mL Final ??? WBC 10/08/2021 12.7 (A) 4.0 - 9.5 x10(3)/mcL Final ??? RBC 10/08/2021 4.88 4.58 - 5.54 x10(6)/mcL Final ??? Hemoglobin 10/08/2021 14.3 13.7 - 16.5 g/dL Final ??? Hematocrit 10/08/2021 42.7 40.5 - 48.5 % Final ??? MCV 10/08/2021 87.5 82.9 - 93.1 fL Final ??? MCH 10/08/2021 29.3 27.5 - 32.1 pg Final ??? MCHC 10/08/2021 33.5 32.0 - 35.7 g/dL Final ??? Platelets 10/08/2021 160 145 - 357 x10(3)/mcL Final ??? RDWSD 10/08/2021 48.2 (A) 36.0 - 45.0 fL Final ??? RDWCV 10/08/2021 14.9 (A) 11.4 - 13.8 % Final ??? MPV 10/08/2021 9.9 7.6 - 12.9 fL Final ??? nRBC % Auto 10/08/2021 0.0 % Final ??? nRBC Abs Auto 10/08/2021 0.000 0.000 - 0.000 x10(3)/mcL Final ??? Neutrophils % 10/08/2021 92.2 % Final ??? Neutr Abs (ANC) 10/08/2021 11.75 (A) 1.70 - 6.10 x10(3)/mcL Final ??? Lymphocytes % 10/08/2021 4.0 % Final ??? Lymphocytes Abs 10/08/2021 0.5 (A) 0.9 - 3.2 x10(3)/mcL Final ??? Monocytes % 10/08/2021 2.7 % Final ??? Monocyte Abs 10/08/2021 0.3 0.3 - 0.9 x10(3)/mcL Final ??? Eosinophils % 10/08/2021 0.2 % Final ??? Eosinophils Abs 10/08/2021 0.0 0.0 - 0.4 x10(3)/mcL Final ??? Basophils % 10/08/2021 0.3 % Final ??? Basophils Abs 10/08/2021 0.0 0.0 - 0.1 x10(3)/mcL Final ??? Immature Gran % 10/08/2021 0.60 % Final ??? Roro Gran Abs 10/08/2021 0.08 (A) 0.00 - 0.04 x10(3)/mcL Final Admission on 10/02/2021, Discharged on 10/02/2021 Component Date Value Ref Range Status ??? COLONOSCOPY 10/02/2021 Final Value:[facility] Endoscopy Procedure Date: 10/02/2021 3:02 PM Patient Name: Raymundo Tenorio Date of : 1955 Age: 66 Order #: [id number] Instrument Name: [id number] Procedure: Colonoscopy Indications: Positive Cologuard test Providers: Jordyn Merino MD, Jennyfer Armando RN, Landon Baires Referring MD: Juan Dempsey MD Medicines: Midazolam 4 mg IV, Fentanyl 100 micrograms IV Complications: No immediate complications. Procedure: Pre-Anesthesia Assessment: - Prior to the procedure, a History and Physical was performed, and patient medications, allergies and sensitivities were reviewed. The patient's tolerance of previous anesthesia was reviewed. - The risks and benefits of the procedure and the sedation options and risks were discussed with the patient. All questions were answered and informed consent was obtained. The procedure, indications, benefits, risks and alternatives were explained to the patient. Specifically discussed were potential complications including, but not limited to, bleeding, perforation, infection, missing a cancer, and adverse medication reactions. The patient was placed in the left lateral decubitus position, and a digital rectal exam was performed. The Colonoscope was inserted in the anus and under direct visualization, advanced to the cecum, identified by appendiceal orifice and ileocecal valve. Careful inspection was made as the colonoscope was withdrawn. The colonoscopy was performed without difficulty. The patient tolerated the procedure well. The quality of the bowel preparation was excellent. Findings: Multiple small and large-mouthed diverticula were found in the sigmoid colon and descending colon. A 4 mm polyp was found in the transverse colon. The polyp was sessile. The polyp was removed with a cold snare. Resection and retrieval were complete. Moderate Sedation: I was present during the intraservice time as documented by the sedation RN. Impression: - Diverticulosis in the sigmoid colon and in the descending colon. - One 4 mm polyp in the transverse colon, removed with a cold snare. Resected and retrieved. Recommendation: - Await pathology results. - Repeat colonoscopy in 7 years for surveillance. Attending Participation: I personally performed the entire procedure. I was present during the intraservice time as documented by the sedation RN. Jordyn Merino MD 10/02/2021 3:50:39 PM This report has been signed electronically. Number of Addenda: 0 Note Initiated On: 10/02/2021 3:02 PM ??? Surgical Pathology Report 10/02/2021 Final Value:[id number] Location: 4T; EA13; A The signing pathologist has (i) examined the relevant preparation(s) for the specimen(s) and (ii) rendered or confirmed the diagnosis(es). . Surgical Pathology DIAGNOSIS A - Transverse colon polyp, resection: - Tubular adenoma. Electronically signed by: Renea Acuna MD Verified: 10/09/2021 16:09 Pathologist Performed at: -[facility] Dept. of Pathology, [place], [place] SPECIMEN(S) SUBMITTED A - Transverse colon polyp, resection (1) CLINICAL INFORMATION Screening colonoscopy SPECIMEN PROCESSING A - Labeled/Fixative: Transverse colon polyp, formalin. Quantity/Size: Single, 0.3 x 0.3 x 0.2 cm. Tissue Description: Partially flattened tinajero-red mucosal polyp and underlying translucent mucosal tissue. Sections/Processing: Submitted en toto in 1 cassette labeled A1. shb Telephone on 10/01/2021 Component Date Value Ref Range Status ??? Glucose Lvl 10/01/2021 115 (A) 74 - 106 Final ??? BUN 10/01/2021 37 (A) 7 - 18 Final ??? Creatinine 10/01/2021 1.5 (A) 0.70 - 1.30 Final ??? Sodium 10/01/2021 139 136 - 145 Final ??? Potassium 10/01/2021 4.1 3.5 - 5.1 Final ??? Chloride 10/01/2021 102 98 - 107 Final ??? CO2 10/01/2021 30 21 - 32 Final ??? Calcium 10/01/2021 8.7 8.5 - 10.1 Final ??? Albumin 10/01/2021 3.6 3.4 - 5.0 Final ??? Total Bilirubin 10/01/2021 0.7 0.2 - 1.0 Final ??? Alk Phos 10/01/2021 108 46 - 116 Final ??? AST 10/01/2021 15 15 - 37 Final ??? ALT 10/01/2021 58 16 - 63 Final Telephone on 09/24/2021 Component Date Value Ref Range Status ??? WBC 09/24/2021 9.79 4.4 - 10.8 Final ??? Hemoglobin 09/24/2021 14.3 13.5 - 17.5 Final ??? Hematocrit 09/24/2021 44.5 40.0 - 50.0 Final ??? Platelets 09/24/2021 189 130 - 400 Final ??? Neutr Abs (ANC) 09/24/2021 7.63 (A) 1.2 - 6.7 Final ??? Glucose Lvl 09/24/2021 202 (A) 74 - 106 Final ??? BUN 09/24/2021 29 (A) 7 - 18 Final ??? Creatinine 09/24/2021 1.6 (A) 0.70 - 1.30 Final ??? Sodium 09/24/2021 141 136 - 145 Final ??? Potassium 09/24/2021 3.4 (A) 3.5 - 5.1 Final ??? Chloride 09/24/2021 104 98 - 107 Final ??? CO2 09/24/2021 28 (A) 31 - 32 Final ??? Calcium 09/24/2021 8.7 8.5 - 10.1 Final ??? Albumin 09/24/2021 3.6 3.4 - 5.0 Final ??? Total Bilirubin 09/24/2021 0.4 0.2 - 1.0 Final ??? Alk Phos 09/24/2021 127 (A) 46 - 116 Final ??? AST 09/24/2021 24 15 - 37 Final ??? ALT 09/24/2021 111 (A) 16 - 63 Final ??? TSH 09/24/2021 3.23 0.36 - 3.74 Final Hospital Outpatient Visit on 09/17/2021 Component Date Value Ref Range Status ??? Glucose Lvl 09/17/2021 78 65 - 199 mg/dL Final ??? BUN 09/17/2021 24 (A) 10 - 20 mg/dL Final ??? Creatinine 09/17/2021 1.38 0.80 - 1.50 mg/dL Final ??? Sodium 09/17/2021 138 135 - 145 mmol/L Final ??? Potassium 09/17/2021 4.2 3.5 - 5.0 mmol/L Final ??? Chloride 09/17/2021 104 98 - 107 mmol/L Final ??? CO2 09/17/2021 23 22 - 31 mmol/L Final ??? Anion Gap 09/17/2021 11 5 - 15 mmol/L Final ??? Calcium 09/17/2021 9.1 8.5 - 10.5 mg/dL Final ??? Total Protein 09/17/2021 6.8 6.1 - 8.0 g/dL Final ??? Albumin 09/17/2021 4.1 3.2 - 5.2 g/dL Final ??? AST 09/17/2021 65 (A) 0 - 39 unit/L Final ??? ALT 09/17/2021 166 (A) 0 - 55 unit/L Final ??? Alk Phos 09/17/2021 131 (A) 40 - 130 unit/L Final ??? Total Bilirubin 09/17/2021 0.5 0.2 - 1.3 mg/dL Final ? ? Estimated GFR 09/17/2021 53 (A) >=60 mL/min/1.73 m?? Final ??? TSH 09/17/2021 2.50 0.27 - 4.20 mcIU/mL Final ??? Free T4 09/17/2021 1.22 0.93 - 1.70 ng/dL Final ??? WBC 09/17/2021 8.8 4.0 - 9.5 x10(3)/mcL Final ??? RBC 09/17/2021 4.83 4.58 - 5.54 x10(6)/mcL Final ??? Hemoglobin 09/17/2021 13.7 13.7 - 16.5 g/dL Final ??? Hematocrit 09/17/2021 41.6 40.5 - 48.5 % Final ??? MCV 09/17/2021 86.1 82.9 - 93.1 fL Final ??? MCH 09/17/2021 28.4 27.5 - 32.1 pg Final ??? MCHC 09/17/2021 32.9 32.0 - 35.7 g/dL Final ??? Platelets 09/17/2021 161 145 - 357 x10(3)/mcL Final ??? RDWSD 09/17/2021 46.8 (A) 36.0 - 45.0 fL Final ??? RDWCV 09/17/2021 14.8 (A) 11.4 - 13.8 % Final ??? MPV 09/17/2021 9.4 7.6 - 12.9 fL Final ??? nRBC % Auto 09/17/2021 0.0 % Final ??? nRBC Abs Auto 09/17/2021 0.000 0.000 - 0.000 x10(3)/mcL Final ??? Neutrophils % 09/17/2021 73.9 % Final ??? Neutr Abs (ANC) 09/17/2021 6.48 (A) 1.70 - 6.10 x10(3)/mcL Final ??? Lymphocytes % 09/17/2021 14.6 % Final ??? Lymphocytes Abs 09/17/2021 1.3 0.9 - 3.2 x10(3)/mcL Final ??? Monocytes % 09/17/2021 7.8 % Final ??? Monocyte Abs 09/17/2021 0.7 0.3 - 0.9 x10(3)/mcL Final ??? Eosinophils % 09/17/2021 2.2 % Final ??? Eosinophils Abs 09/17/2021 0.2 0.0 - 0.4 x10(3)/mcL Final ??? Basophils % 09/17/2021 1.0 % Final ??? Basophils Abs 09/17/2021 0.1 0.0 - 0.1 x10(3)/mcL Final ??? Immature Gran % 09/17/2021 0.50 % Final ??? Roro Gran Abs 09/17/2021 0.04 0.00 - 0.04 x10(3)/mcL Final External Results on 09/11/2021 Component Date Value Ref Range Status ??? Glucose Lvl 09/10/2021 153 (A) Final ??? BUN 09/10/2021 31 (A) Final ??? Creatinine 09/10/2021 1.5 (A) Final ??? Estimated GFR 09/10/2021 46.82 (A) Final ??? Sodium 09/10/2021 136 Final ??? Potassium 09/10/2021 4.5 Final ??? Chloride 09/10/2021 102 Final ??? CO2 09/10/2021 29 Final ??? Calcium 09/10/2021 8.1 (A) Final ??? Total Protein 09/10/2021 6.8 Final ??? Albumin 09/10/2021 3.3 (A) Final ??? Total Bilirubin 09/10/2021 0.5 Final ??? Alk Phos 09/10/2021 116 Final ??? AST 09/10/2021 30 Final ??? ALT 09/10/2021 153 (A) Final Telephone on 09/08/2021 Component Date Value Ref Range Status ??? Glucose Lvl 09/08/2021 149 (A) 74 - 106 Final ??? BUN 09/08/2021 29 (A) 7 - 18 Final ??? Creatinine 09/08/2021 1.6 (A) 0.70 - 1.30 Final ??? Sodium 09/08/2021 136 136 - 145 Final ??? Potassium 09/08/2021 5.3 (A) 3.5 - 5.1 Final ??? Chloride 09/08/2021 101 98 - 107 Final ??? CO2 09/08/2021 29 21 - 32 Final ??? Calcium 09/08/2021 8.8 8.5 - 10.1 Final ??? Total Protein 09/08/2021 6.9 6.4 - 8.2 Final ??? Albumin 09/08/2021 3.5 3.4 - 5 Final ??? Total Bilirubin 09/08/2021 0.4 0.2 - 1 Final ??? Alk Phos 09/08/2021 123 (A) 46 - 116 Final ??? AST 09/08/2021 29 15 - 37 Final ??? ALT 09/08/2021 166 (A) 16 - 63 Final Telephone on 09/04/2021 Component Date Value Ref Range Status ??? Glucose Lvl 09/04/2021 171 (A) 74 - 106 Final ??? BUN 09/04/2021 32 (A) 7 - 18 Final ??? Creatinine 09/04/2021 1.6 (A) 0.70 - 1.30 Final ??? Sodium 09/04/2021 140 136 - 145 Final ??? Potassium 09/04/2021 3.6 3.5 - 5.1 Final ??? Chloride 09/04/2021 104 98 - 107 Final ??? CO2 09/04/2021 28 21 - 32 Final ??? Calcium 09/04/2021 8.4 (A) 8.5 - 10.1 Final ??? Total Protein 09/04/2021 7.1 6.4 - 8.2 Final ??? Albumin 09/04/2021 3.4 3.4 - 5 Final ??? Total Bilirubin 09/04/2021 0.4 0.2 - 1.0 Final ??? Alk Phos 09/04/2021 137 (A) 46 - 116 Final ??? AST 09/04/2021 35 15 - 37 Final ??? ALT 09/04/2021 274 (A) 16 - 63 Final There may be more visits with results that are not included. Assessment/Plan: Mr. Tenorio is a 66 y.o. 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 We discussed that this is a known complication of pembrolizumab. Fortunately his liver enzymes do respond to s teroid medication, but unfortunately he has not been able to be tapered off steroids. We discussed that sometimes patients need a prolonged course of steroids but can eventually be tapered off. Alternatively, an addition of a steroid sparing agent such as MMF may be required. We discussed that budesonide is a reasonable option, although it has not been well studied in this scenario, as we have less systemic steroid effect while maintaining steroid effect within the liver. We discussed that budesonide has been shown to be effective therapy in patients with classic autoimmune hepatitis. He is scheduled for repeat laboratory investigations next week. We will plan on continuing 9 mg of budesonide for the next month. I will see him in clinic when he returns [place] [facility] [place]. He will get laboratory investigations prior to this visit and we will plan on performing a FibroScan at this visit. We will work on obtaining his viral hepatitis testing from his primary care provider. The patient was located in [place] at the time of their visit. TIME SPENT 30 min Time spent during encounter with patient including counselin minutes An additional 10 minutes were spent before and after the visit on this same day in preparation for the appointment, ordering tests and/or prescriptions, communicating with referring providers and completing documentation Approximate total time devoted to this single encounter: 40 Ana [place]ring[place] [phone] documented in this encounter Plan of Treatment Upcoming Encounters Date Type Department Care Team (Late st Contact Info) Description 02/16/2024 9:15 AM EDT Laboratory Appointment Lab at [facility] [place] Hematology Oncology [address] [place] [id number] 02/16/2024 10:20 AM EDT Hospital [place] [phone] Mitali Griffiths APRN [facility] DR [place] [address] 02/16/2024 1:30 PM EDT Office Visit H[place]ology [place] [address] Albino Bartholomew MD [facility] DR [place] [address] 04/17/2024 10:00 AM EST Office Visit Dermatology at [facility] [address] [place] [phone] Oli Winter MD [address] [facility] [place] [place] [address] documented as of this encounter Results * Smooth Muscle Antibody (11/26/2021 9:13 AM EDT) Sm Muscle Ab (AUGUST) Negative Negative [facility] Comment: Negative: No further testing will be performed ADDITIONAL INFORMATION This test was developed and its performance characteristics determined by [facility] in a manner consistent with CLIA requirements. This test has not been cleared or approved by the U.S. Food and Drug Administration. Test Performed by: [facility] [address] [place] [address] Lines Tender: Dominick Jara M.D. Ph.D.; CLIA# [id number] Blood 11/26/2021 9:13 AM EDT 11/26/2021 1:12 PM EDT Narrative Resulting Agency Comment Spec In Lab Ana Pringle MD LAB SEND OUT ORDERAB LES Performing Organization Address City/[facility]/ZIP Co de Phone Number [facility] [place] [address] * IgG (11/26/2021 9:13 AM EDT) Immunoglobulin G 992 700 - 1,600 mg/dL [facility] Comment: Pediatric Reference Intervals obtained from the [employer] Reference Interval project. http://www.dMetrics.ca/caliperproject/index.html Blood 11/26/2021 9:13 AM EDT 11/26/2021 9:24 AM EDT Narrative Resulting Agency Comment Spec In Lab Ana rPingle MD CHEMISTRY ORDERABLES Performing Organization Address [facility] Co de Phone Number [facility] [place] [address] documented in this encounter Visit Diagnoses Diagnosis Drug-induced hepatitis Hepatitis, unspecified Autoimmune hepatitis documented in this encounter Care Teams Administrative Underwriter Relationship Specialty Start Date End Date Juan Dempsey MD [address] [place] [id number] PCP - General Emergency Medicine 08/20/21 documented as of this encounter
--- OUTSIDE RECORDS SUMMARY | 2024-02-03 16:57 | XMS_ITS | Encounter Summary ---
Author Organization [facility] Address [facility] [place] [address] Care Team Providers Care Electronic News Gathering Editor Name Role Phone Juan Dempsey MD Primary Care Provider [phone] Reason for Visit * Reason Comments Follow-up Encounter Details Date Type Department Care Team (Late st Contact Info) Description 10/08/2021 2:00 PM EDT Office Visit Hematology [place] [phone] Albino Bartholomew MD [facility] DR HEMATOLOGY [place] [address] Kelin Carlos APRN [facility] [address] HEMATOLOGY [place] [address] Renal cell carcinoma, unspecified laterality (Primary Dx); Elevated LFTs Social History Tobacco Use Types [...] Sign Reading Time Taken Comments Blood Pressure 149/63 10/08/2021 1:48 PM EDT Pulse 63 10/08/2021 1:48 PM EDT Temperature 36.8 ??C (98.2 ??F) 10/08/2021 1:48 PM ED T Respiratory Rate 15 10/08/2021 1:48 PM EDT Oxygen Saturation 95% 10/08/2021 1:48 PM EDT Inhaled Oxygen Concentration - - Weight 97.4 kg (214 lb 12.8 oz) 10/08/2021 1:48 PM EDT Height 185 cm (6' 0.84) 10/08/2021 1:48 PM EDT Body Mass Index 28.47 10/08/2021 1:48 PM EDT documented in this encounter Progress Notes * Albino Bartholomew MD - 10/08/2021 2:00 PM EDT Images from the original note were not included. [facility] Oncology - Follow Up Visit History [...] recent infections or infectious symptoms. Interval History: Cristofer returns for f/u on kidney cancer and pembrolizumab toxicity.. Accompanied by Emily. Overall, feeling well. Today his first day on prednisone 20 mg a day, he continues tapering. Bowel movements are regular. Denies any rash. No side effects of prednisone.He's been off statin since the end of the August. Energy level is good. Appetite is very good, Complains some itchy eyes and runny nose which he relates to seasonal allergy. Patient Active Problem List Diagnosis Code ??? Renal mass N28.89 ??? Renal cell carcinoma C64.9 ??? Medication management Z79.899 PMH, PSH, and current medications reviewed, as documented in the electronic medical record. Current Outpatient Medications on File Prior to Visit Medication Sig Dispense Refill ??? pantoprazole EC (Protonix) 40 mg Tablet, Delayed Release (E.C.) Take 40 mg by mouth daily. ??? amLODIPine (Norvasc) 10 mg Tablet TAKE ONE TABLET BY MOUTH EVERY DAY FOR BLOOD PRESSURE ??? predniSONE (Deltasone) 20 mg Tablet 80mg x 1 week, 60mg/day x 1 week, 40mg/day x 1 week, 20mg/day x 1 week, 10mg/day x 1 week 100 tablet 0 ??? diphenhydrAMINE (Benadryl) 25 mg Capsule Take 25 mg by mouth every 6 hours as needed for Itching. For seasonal allergies ??? losartan (COZAAR) 100 mg Tablet Take 100 mg by mouth daily. ??? atorvastatin (LIPITOR) 20 mg Tablet Take 20 mg by mouth daily. ??? acetaminophen (Tylenol) 325 mg Tablet Take 2-3 tablets by mouth every 6 hours as needed for Pain. (Patient not taking: No sig reported) No current facility-administered medications on file prior to visit. 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 Head: NC/AT Eyes: Anicteric Oropharynx: not examined, wearing mask for covid precautions. CV: RRR, S1 S2 wnl, no murmurs appreciated. Extremities warm Neck: Supple, no lymphadenopathy Pulm: CTAB, no rales/rhonchi. No increased work of breathing, normal pattern and effort Abd: normoactive bowel sounds, soft, nontender, non-distended Skin: no rashes or petechiae on exposed skin MSK: no edema or cyanosis noted. Neuro: moving all extremities. No focal deficits. Psych: calm and appropriate BP 149/63 (Patient Position: Sitting) Pulse 63 Temp 36.8 ??C (98.2 ??F) (Temporal) Resp 15 Ht 185 cm (6' 0.84) Wt 97.4 kg (214 lb 12.8 oz) SpO2 95% BMI 28.47 kg/m?? Wt Readings from Last 3 Encounters: 10/08/21 97.4 kg (214 lb 12.8 oz) 10/02/21 95.3 kg (210 lb) 09/17/21 100.2 kg (220 lb 12.8 oz) Results: Recent Results (from the past 24 hour(s)) Comprehensive metabolic panel (non-fasting) Result Value Ref Range Glucose Lvl 134 65 - 199 mg/dL BUN 41 (H) 10 - 20 mg/dL Creatinine 1.68 (H) 0.80 - 1.50 mg/dL Sodium 137 135 - 145 mmol/L Potassium 4.8 3.5 - 5.0 mmol/L Chloride 102 98 - 107 mmol/L CO2 24 22 - 31 mmol/L Anion Gap 11 5 - 15 mmol/L Calcium 9.1 8.5 - 10.5 mg/dL Total Protein 6.4 6.1 - 8.0 g/dL Albumin 4.0 3.2 - 5.2 g/dL AST 25 0 - 39 unit/L ALT 45 0 - 55 unit/L Alk Phos 96 40 - 130 unit/L Total Bilirubin 0.6 0.2 - 1.3 mg/dL Estimated GFR 42 (L) >=60 mL/min/1.73 m?? TSH Result Value Ref Range TSH 1.18 0.27 - 4.20 mcIU/mL Hemogram Result Value Ref Range WBC 12.7 (H) 4.0 - 9.5 x10(3)/mcL RBC 4.88 4.58 - 5.54 x10(6)/mcL Hemoglobin 14.3 13.7 - 16.5 g/dL Hematocrit 42.7 40.5 - 48.5 % MCV 87.5 82.9 - 93.1 fL MCH 29.3 27.5 - 32.1 pg MCHC 33.5 32.0 - 35.7 g/dL Platelets 160 145 - 357 x10(3)/mcL RDWSD 48.2 (H) 36.0 - 45.0 fL RDWCV 14.9 (H) 11.4 - 13.8 % MPV 9.9 7.6 - 12.9 fL nRBC % Auto 0.0 % nRBC Abs Auto 0.000 0.000 - 0.000 x10(3)/mcL Differential, Automated Result Value Ref Range Neutrophils % 92.2 % Neutr Abs (ANC) 11.75 (H) 1.70 - 6.10 x10(3)/mcL Lymphocytes % 4.0 % Lymphocytes Abs 0.5 (L) 0.9 - 3.2 x10(3)/mcL Monocytes % 2.7 % Monocyte Abs 0.3 0.3 - 0.9 x10(3)/mcL Eosinophils % 0.2 % Eosinophils Abs 0.0 0.0 - 0.4 x10(3)/mcL Basophils % 0.3 % Basophils Abs 0.0 0.0 - 0.1 x10(3)/mcL Immature Gran % 0.60 % Roro Gran Abs 0.08 (H) 0.00 - 0.04 x10(3)/mcL Pathology: No new Tumor Focality: ??Unifocal ?Tumor Site: ??Middle; ??Lower [...] (pT): ??pT3a ?Regional Lymph Nodes (pN): ??pN1 Imagin07/20/21 CT C/A/P: IMPRESSION ?? 1. Post LEFT [...] in the bones. 05/20/21 CT ABD/Pelvis Assessment: Cristofer Tenorio is a 66 y[address] Dr[address] 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 Treatment: -08/07/21 started adjuvant pembrolizumab We reviewed his diagnosis in detail and [...] metastatic disease would impact our recommendations. 08/27/21: Cristofer returns for f/u and consideration of pembro [...] We'll send orders and I'll ask our food analyst to f/u on results. Advised pt to [...] with Dr. Hou with restaging CT scan Mr. Tenorio asked appropriate questions and verbalized good understanding of and agreement with the plan. I encouraged him to call anytime with questions or concerns and he agreed. Plan: - Continue HOLDING atorvastatin - Prednisone 20mg/day x 1 week 10mg/day x 1 week, then stop - CMP weekly at [facility] in 3 weeks for labs and clinic visit. The plan was discussed with the patient in details. All questions were answered to patient/ documented in this encounter Plan of Treatment Upcoming Encounters Date Type Department Care Team (Late st Contact Info) Description 02/16/2024 9:15 AM EDT Laboratory Appointment Lab at [facility] Hematology Oncology [address] [place] [address] 02/16/2024 10:20 AM EDT Hospital Encounter CT Scan at [place] [phone] Mitali Griffiths APRN [facility] DR [place] [address] 02/16/2024 1:30 PM EDT Office Visit Hematology and Oncology at [place] [phone] Albino Bartholomew MD [facility] DR HEMATOLOGY [place] [address] 04/17/2024 10:00 AM EST Office Visit Dermatology at [facility] [address] [place] [address] Oli Winter MD [address] [facility] [place] [address] Scheduled Orders Name Type Priority Associated Diagnoses Orde r Schedule CBC (with Diff) Lab Routine Renal cell carcinoma, unspecified laterality Every 3 weeks for 4 Occurrences starting 10/08/2021 until 10/08/2022, 2 completed Comprehensive metabolic panel (non-fasting) Lab Routine Renal cell carcinoma, unspecified laterality Every 3 weeks for 4 Occurrences starting 10/08/2021 until 10/08/2022, 2 completed documented as of this encounter Results * (ABNORMAL) Comprehensive metabolic panel (non-fasting) (04/15/2022 1:45 PM EST) Glucose 122 65 - 199 mg/dL [facility] Comment:Diabetes: >=200 mg/d L plus symptoms Blood Urea Nitrogen 30(H) 10 - 20 mg/dL [facility] Creatinine 1.77(H) 0.80 - 1.50 mg/dL [facility] Sodium 138 135 - 145 mmol/L [facility] Potassium 3.8 3.5 - 5.0 mmol/L [facility] Comment: Please note: ??Patients with WBC >100,000 may have falsely elevated Potassium levels. ??For accurate Potassium quantification in these patients send serum separator tube (gold top) for subsequent determinations. ??Contact the Clinical Chemistry Laboratory if there are any questions. Chloride 103 98 - 107 mmol/L [facility] Carbon Dioxide 25 22 - 31 mmol/L [facility] Anion Gap 10 5 - 15 mmol/L [facility] Calcium 9.0 8.5 - 10.5 mg/dL [facility] Protein, Total 7.0 6.1 - 8.0 g/dL [facility] Albumin 3.7 3.2 - 5.2 g/dL [facility] Aspartate Aminotransferase 50(H) 0 - 39 unit/L [facility] Alanine Aminotransferase 92(H) 0 - 55 unit/L [facility] Alkaline Phosphatase 155(H) 40 - 130 unit/L [facility] Bilirubin, Total 0.5 0.2 - 1.3 mg/dL [facility] Est Glomerular Filtration Rate 42(L) >=60 mL/min/1. 73 m?? [facility] Comment: This patient's estimated GFR was [...] In Lab Albino Bartholomew MD CHEMISTRY ORDERABLES [facility] [place] [address] * (ABNORMAL) Comprehensive metabolic panel (non-fasting) (10/28/2021 9:41 AM EDT) Glucose 130 65 - 199 mg/dL [facility] Comment:Diabetes: >=200 mg/d L plus symptoms Blood Urea Nitrogen 22(H) 10 - 20 mg/dL [facility] Creatinine 1.25 0.80 - 1.50 mg/dL [facility] Sodium 139 135 - 145 mmol/L [facility] Potassium 4.1 3.5 - 5.0 mmol/L [facility] Comment: Please note: ??Patients with WBC >100,000 may have falsely elevated Potassium levels. ??For accurate Potassium quantification in these patients send serum separator tube (gold top) for subsequent determinations. ??Contact the Clinical Chemistry Laboratory if there are any questions. Chloride 105 98 - 107 mmol/L [facility] Carbon Dioxide 29 22 - 31 mmol/L [facility] Anion Gap 5 5 - 15 mmol/L [facility] Calcium 9.0 8.5 - 10.5 mg/dL [facility] Protein, Total 6.0(L) 6.1 - 8.0 g/dL [facility] Albumin 3.8 3.2 - 5.2 g/dL [facility] Aspartate Aminotransferase 44(H) 0 - 39 unit/L [facility] Alanine Aminotransferase 157(H) 0 - 55 unit/L [facility] Alkaline Phosphatase 102 40 - 130 unit/L [facility] Bilirubin, Total 0.5 0.2 - 1.3 mg/dL [facility] Est Glomerular Filtration Rate 64 >=60 mL/min/1. 73 m?? [facility] Comment: This patient's estimated GFR [...] and symptoms in addition to eGFR. Blood 10/28/2021 9:41 AM EDT 10/28/2021 12:52 PM EDT Narrative Resulting Agency Comment Spec In Lab Albino Bartholomew MD CHEMISTRY ORDERABLES Performing Organization Address City/State/[facility] Co de Phone Number [facility] [place] [address] documented in this encounter Visit Diagnoses Diagnosis Renal cell carcinoma, unspecified laterality- Primary Elevated LFTs Other abnormal blood chemistry documented in this encounter Care Teams Electronic News Gathering Editor Relationship Specialty Start Date End Date Juan Dempsey MD [address] [place] [address] PCP - General Emergency Medicine 08/20/21 documented as of this encounter
--- OUTSIDE RECORDS SUMMARY | 2024-02-03 16:57 | XMS_ITS | Encounter Summary ---
Author Organization [facility] Address [facility] [place] [address] Care Team Providers Care Material Expeditor Name Role Phone Juan Dempsey MD Primary Care Provider [phone] Encounter Details Date Type Department Care Team (Late st Contact Info) Description 10/16/2021 Telephone Hematology [place] [address] Daxa Arriola RN Social History [...] Telephone Encounter - Daxa Arriola RN - 10/16/2021 8:03 AM EDT Message received from clinical executive legal secretary: labs in! Message received from provider: Nursing: will continue weekly CMP for f/u on liver function and Cr at [facility] Prednisone taper weekly if LFTs are stable. 10/08-10/15 20mg/day x 1 week 10/16-10/22 10mg/day x 1 week, then stop Labs reviewed with Dr. Bartholomew. Plan: Pt instructed to decrease prednisone to 10 mg daily and have labs again next week. Detailed message left for pt. Triage to call back tomorrow. 10/17- Pt returned call. Pt decreased to 10 mg of prednisone on 10/14. Fever last night 103F, 6am 101F Spoke with Dr. Wells. Took 500mg of Tylenol this morning temp now 98.1F. Home Covid test negative. Pt verbalized plan to continue to monitor fever and take low dose Tylenol as needed. Will test for Covid again tomorrow. Will discontinue prednisone after 1 week on Wednesday, 10/21. Going for labs next , 10/22. Home Covid test this morning negative. documented in this encounter Plan of Treatment Upcoming Encounters Date Type Department Care Team (Late st Contact Info) Description 02/16/2024 9:15 AM EDT Laboratory Appointment Lab at [facility] Hematology Oncology [address] [place], [place] [id number] 02/16/2024 10:20 AM EDT Hospital [place] [address] Mitali Griffiths APRN [facility] [place] [address] 02/16/2024 1:30 PM EDT Office Visit Hematology and Oncology at [place] [phone] Albino Bartholomew MD [facility] [place] [address] 04/17/2024 10:00 AM EST Office Visit Dermatology at [facility] [address] [place] [address] Oli Winter MD [address] [facility] [place] [address] documented as of this encounter Visit Diagnoses Not on filedocumented in this encounter Care Teams Material Expeditor Relationship Specialty Start Date End Date Juan Dempsey MD [address] [place] [address] PCP - General Emergency Medicine 08/20/21 documented as of this encounter
--- OUTSIDE RECORDS SUMMARY | 2024-02-03 16:57 | XMS_ITS | Encounter Summary ---
Author Organization [facility] Address [facility] [place] [address] Care Team Providers Care Labor Law Professor Name Role Phone Juan Dempsey MD Primary Care Provider [phone] Encounter Details Date Type Department Care Team (Late st Contact Info) Description 10/20/2021 8:05 PM EDT Ancillary Procedure Radiology Library [place] [facility] [place] [address] Juan Dempsey MD [address] [place] [address] Social History Tobacco Use Types Packs/Day Years [...] [facility] [place] [address] [place] [address] 02/16/2024 10:20 AM EDT Hospital Encounter [place] [address] Mitali Griffiths APRN [facility] [place] [address] 02/16/2024 1:30 PM EDT Office Visit Hematology [place] [phone] Albino Bartholomew MD [facility] [place] [address] 04/17/2024 10:00 AM EST Office Visit Dermatology at [facility] [address] [place] [address] Oli Winter MD [address] [facility] [place] [address] documented as of this encounter Procedures Procedure Name Priority Date/Time Associated Diagnosis Comments FILM LIBRARY STORAGE ONLY ULTRASOUND STUDY Routine 10/20/2021 8:00 PM EDT documented in this encounter Results * Film Library- Storage Only Ultrasound Study (10/20/2021 8:00 PM EDT) Narrative STELLA - 10/20/2021 8:00 PM EDT This exam is auto-finalizing. It's purpose is for storage only. Juan Dempsey MD IMG FILM LIBRARY ORD ERABLES [place], [place] documented in this encounter Visit Diagnoses Not on filedocumented in this encounter Care Teams Labor Law Professor Relationship Specialty Start Date End Date Juan Dempsey MD [address] [place] [address] PCP - General Emergency Medicine 08/20/21 documented as of this encounter
--- OUTSIDE RECORDS SUMMARY | 2024-02-03 16:57 | XMS_ITS | Encounter Summary ---
Author Organization [facility] Address [facility] [place] [address] Care Team Providers Care Lab Technologist Name Role Phone Juan Dempsey MD Primary Care Provider [phone] Encounter Details Date Type Department Care Team (Late st Contact Info) Description 10/20/2021 Telephone Hematology [place] [phone] Aleksandra Wells MD [facility] DR HEMATOLOGY/[place] [address] Social History Tobacco Use Types Packs/Day Years [...] encounter Miscellaneous Notes * Telephone Encounter - Aleksandra Wells - 10/20/2021 5:30 PM EDT Reason for call: [facility] is calling for consult Re: fever and DVY Cristofer Tenorio is a 66 y.o. male with history of pT3aN1 clear ell Ca s/p nephrectomy. He is s/p adjuvant Pembro, last dose on 08/07/21. It was held due to transaminitis. Last LFTs on 10/08 were normal.He had a fever on last T.Max 103F. He took tylenol. Following that he has been running lowgrade temperature of 100 - 100.4F. He also developed RLE redness and swelling. He presented today to the [facility] ER. In ER he is afebrile, VSS. Labs showed Ca 1.5, AST 121, ALT 261, BUN 28, Cr 1.5. UA clear and CXR clear. Found to have extensive DVT of LLE. Recommendations: DVT maybe causing fever, although rarely it causes high grade fever like this patient who had max temp of 103F. Recommended to load with 10 mg BID of Eliquis for 7 days followed by 5 mg daily. I am concerned about transaminitis. Currently he is on 10 mg of prednisone. He decreased the dose of prednisone from 20 mg to 10 mg 6 days ago. His LFTs were normal 2 weeks ago. It is a possibility that his LFT are trending up because of steroid taper. But will also need to rule out other etiologies of transaminitis. Tick borne illness need to be ruled out due to the season. If all work up is negative, then he should go up on prednisone (20 mg) and then will need a repeat labs in next few days. If he is found to have any other etiology of transminitis (e.g. tick borne illness), then he can complete his taper. Should he is started back of 20 mg of prednisone or higher, he should receive PJP prophylaxis. I will send message to Dr. Faulkner and Kelin Carlos. Aleksandra Wells MD, MS Hematology/Medical Oncology Fellow [facility] at [facility] Page # [phone] 10/20/21, 6:03 PM documented in this encounter Plan of Treatment Upcoming Encounters Date Type Department Care Team (Late st Contact Info) Description 02/16/2024 9:15 AM EDT Laboratory Appointment Lab at [facility] Hematology Oncology [address] [place] [address] 02/16/2024 10:20 AM EDT Hospital Encounter [place] [phone] Mitali Griffiths APRN [facility] DR [place] [address] 02/16/2024 1:30 PM EDT Office Visit Hematology [place] [phone] Albino Bartholomew MD [facility] DR [place] [address] 04/17/2024 10:00 AM EST Office Visit Dermatology at [facility] [address] [place] [phone] Oli Winter MD [address] [facility] [place] [address] documented as of this encounter Visit Diagnoses Not on filedocumented in this encounter Care Teams Lab Technologist Relationship Specialty Start Date End Date Juan Dempsey MD [address] [place] [address] PCP - General Emergency Medicine 08/20/21 documented as of this encounter
--- OUTSIDE RECORDS SUMMARY | 2024-02-03 16:57 | XMS_ITS | Encounter Summary ---
Author Organization [facility] Address [facility] [place] [address] Care Team Providers Care Pharmacy Sales Assistant Name Role Phone Juan Dempsey MD Primary Care Provider [phone] Encounter Details Date Type Department Care Team (Late st Contact Info) Description 10/16/2021 Orders Only Urology at [facility] [place] [address] Jordan Hou MD [facility] [address] Renal cell carcinoma, unspecified laterality Social History [...] [facility] [address] [place] [address] 02/16/2024 10:20 AM EDT Hospital [place] [address] Mitali Griffiths APRN [facility] DR HEMATOLOGY [place] [address] 02/16/2024 1:30 PM EDT Office Visit Hematology [place] [phone] Albino Bartholomew MD [facility] DR HEMATOLOGY [place] [address] 04/17/2024 10:00 AM EST Office Visit Dermatology at [facility] [address] [place] [address] Oli Winter MD [address] [facility] [place] [address] documented as of this encounter Results * (ABNORMAL) Basic Metabolic Panel (non-fasting) (10/16/2021 12:08 PM EDT) Glucose 128 65 - 199 mg/dL [facility] Comment:Diabetes: >=200 mg/d L plus symptoms Blood Urea Nitrogen 25(H) 10 - 20 mg/dL [facility] Creatinine 1.62(H) 0.80 - 1.50 mg/dL [facility] Sodium 136 135 - 145 mmol/L [facility] Potassium 4.7 3.5 - 5.0 mmol/L [facility] Comment: Please note: ??Patients with WBC >100,000 may have falsely elevated Potassium levels. ??For accurate Potassium quantification in these patients send serum separator tube (gold top) for subsequent determinations. ??Contact the Clinical Chemistry Laboratory if there are any questions. Chloride 101 98 - 107 mmol/L [facility] Carbon Dioxide 25 22 - 31 mmol/L [facility] Anion Gap 10 5 - 15 mmol/L [facility] Calcium 8.7 8.5 - 10.5 mg/dL [facility] Est Glomerular Filtration Rate 47(L) >=60 mL/min/1. 73 m?? [facility] Comment: This patient's estimated GFR [...] and symptoms in addition to eGFR. Blood 10/16/2021 12:0 8 PM EDT 10/16/2021 12:21 PM EDT Narrative Resulting Agency Comment Spec In Lab Jordan Hou MD CHEMISTRY ORDERABL ES [facility] [place] [place] [address] documented in this encounter Visit Diagnoses Diagnosis Renal cell carcinoma, unspecified laterality documented in this encounter Care Teams Pharmacy Sales Assistant Relationship Specialty Start Date End Date Juan Dempsey MD [address] [place] [address] PCP - General Emergency Medicine 08/20/21 documented as of this encounter
--- OUTSIDE RECORDS SUMMARY | 2024-02-03 16:57 | XMS_ITS | Encounter Summary ---
Author Organization [facility] Address [facility] [place] [address] Care Team Providers Care Pulmonology Technician Name Role Phone Juan Dempsey MD Primary Care Provider [phone] Encounter Details Date Type Department Care Team (Late st Contact Info) Description 10/08/2021 Telephone Hematology [place] [address] Daxa Arriola RN Social History [...] Telephone Encounter - Daxa Arriola RN - 10/08/2021 8:11 AM EDT Message received from clinical human geography faculty member: well testing operator to follow-up on prednisone taper after clinic visit on 10/08. Should be tapering to the followinmg/day x 1 week 10mg/day x 1 week Following LFT's. Currently on 40 mg daily since 10/01. Received plan for follow-up call from Dr. Bartholomew Nursing: will continue weekly CMP for f/u on liver function and Cr at [facility]. [facility] needs new standingorder as previous . Please follow Next visit in 3 week with CBC and CMP Message sent to Dr. Bartholomew requesting update on prednisone plan. 10/08-10/15 20mg/day x 1 week 10/16-10/22 10mg/day x 1 week, then stop Order pended to Kelin Carlos APRN, and clinical human geography faculty member informed for scheduling lab with [facility].Triage to follow-up on labs and taper on 10/15. documented in this encounter Plan of Treatment Upcoming Encounters Date Type Department Care Team (Late st Contact Info) Description 02/16/2024 9:15 AM EDT Laboratory Appointment Lab at [facility] [place] On[place] [address] [place] [address] 02/16/2024 10:20 AM EDT Hospital [place] [address] Mitali Griffiths APRN [facility] [place] [address] 02/16/2024 1:30 PM EDT Office Visit Hematology and Oncology at [place] [phone] Albino Bartholomew MD [facility] [place] [address] 04/17/2024 10:00 AM EST Office Visit Dermatology at [facility] [address] [place] [address] Oli Winter MD [address] [facility] [place] [address] documented as of this encounter Visit Diagnoses Diagnosis Renal cell carcinoma, unspecified laterality Elevated LFTs Other abnormal blood chemistry documented in this encounter Care Teams Pulmonology Technician Relationship Specialty Start Date End Date Juan Dempsey MD [address] [place] [address] PCP - General Emergency Medicine 08/20/21 documented as of this encounter
--- OUTSIDE RECORDS SUMMARY | 2024-02-03 16:57 | XMS_ITS | Encounter Summary ---
Author Organization [facility] Address [facility] [place] [address] Care Team Providers Care Phonograph Mechanic Name Role Phone Juan Dempsey MD Primary Care Provider [phone] Encounter Details Date Type Department Care Team (Late st Contact Info) Description 10/17/2021 Telephone [place]ology [place] [phone] Aleksandra Wells MD [facility] DR HEMATOLOGY/[place] [address] Social History Tobacco Use Types Packs/Day Years [...] * Telephone Encounter - Aleksandra Wells - 10/17/2021 6:14 AM EDT Reason for call: Fever Cristofer Tenorio is a 66 y.o. 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 Currently he portia Pembrolizumab. He did have transaminitis but his rennal functions now normalized. He had a feverof 103F this morning around 3 am. He went back to bed. This morning he had a fever of 101F. He had mild cough that is from seasonal allergies. No URI, no dysuria. Has some malaise. He is calling ot check if he can take tylenol. Recommendations: Unclear etiology of fever. Maybe viral. Since his liver functions are normalized, it is ok to take tylenol. However I advised him not to take tylenol on standing basis. He should call back if he continues to have a temperature. He verbalized understanding. Aleksandra Wells MD, MS Hematology/Medical Oncology Fellow [facility] Page # [phone] 10/17/21, 6:26 AM documented in this encounter Plan of Treatment Upcoming Encounters Date Type Department Care Team (Late st Contact Info) Description 02/16/2024 9:15 AM EDT Laboratory Appointment Lab at [facility] Hematology Oncology [address] [place], [place] [id number] 02/16/2024 10:20 AM EDT Hospital [place] [address] Mitali Griffiths APRN [facility] DR [place] [address] 02/16/2024 1:30 PM EDT Office Visit Hematology and Oncology at [place] [phone] Albino Bartholomew MD [facility] DR [place] [address] 04/17/2024 10:00 AM EST Office Visit Dermatology at [facility] [address] [place] [address] Oli Winter MD [address] [facility] [place] [address] documented as of this encounter Visit Diagnoses Not on filedocumented in this encounter Care Teams Phonograph Mechanic Relationship Specialty Start Date End Date Juan Dempsey MD [address] [place] [address] PCP - General Emergency Medicine 08/20/21 documented as of this encounter
--- OUTSIDE RECORDS SUMMARY | 2024-02-03 16:57 | XMS_ITS | Encounter Summary ---
Author Organization [facility] Address [facility] [place] [address] Care Team Providers Care Attending Pathologist Name Role Phone Juan Dempsey MD Primary Care Provider [phone] Reason for Visit * Auth/Cert Specialty Diagnoses / Procedures Referred By Contjuan t Referred To Contact Diagnoses positive cologard, screening Procedures PRO COLONOSCOPY, DIAGNOSTIC COLONOSCOPY, DIAGNOSTIC Referral ID Status Reason Start Date Expiration Date Visits Re quested Visits Authorized [id number] 1 1 Encounter Details Date Type Department Care Team (Late st Contact Info) Description 10/02/2021 3:00 PM EDT - 10/02/2021 3:45 PM EDT [place] [address] Jordyn Merino MD [facility] [place] [address] COLONOSCOPY, DIAGNOSTIC (WRVU 3.26) Social History Tobacco Use Types Packs/Day Years [...] Sign Reading Time Taken Comments Blood Pressure 145/80 10/02/2021 3:45 PM EDT Pulse 56 10/02/2021 3:45 PM EDT Temperature 36.3 ??C (97.4 ??F) 10/02/2021 2:04 PM ED T Respiratory Rate 15 10/02/2021 3:45 PM EDT Oxygen Saturation 95% 10/02/2021 3:45 PM EDT Inhaled Oxygen Concentration - - Weight 95.3 kg (210 lb) 10/02/2021 2:04 PM EDT Height 181 cm (5' 11.26) 10/02/2021 2:04 PM EDT Body Mass Index 29.08 10/02/2021 2:04 PM EDT documented in this encounter Discharge Instructions * Attachments The following attachments cannot be sent through Care Everywhere. * Colonoscopy: Post-op ([place]) documented in this encounter Medications at [facility] [address] [place] [address] 02/16/2024 10:20 AM EDT Hospital [place] [address] Mitali Griffiths APRN [facility] DR HEMATOLOGY AND ONCOLOGY [place], [place] [id number] 02/16/2024 1:30 PM EDT Office Visit [place]ology [place] [address] Albino Bartholomew MD [facility] DR HEMATOLOGY [place] [address] 04/17/2024 10:00 AM EST Office Visit Dermatology at [facility] [address] [place] [address] Oli Winter MD [address] [facility] [place] [address] documented as of this encounter Procedures Procedure Name Priority Date/Time Associated Diagnosis Comments SURGICAL PATHOLOGY REPORT Routine 10/02/2021 3:47 PM EDT SPECIMEN TO PATHOLOGY Routine 10/02/2021 3:47 PM EDT Colonoscopy, Diagnostic ([id number]) 10/02/2021 3:20 PM EDT positive cologard, screening COLONOSCOPY Routine 10/02/2021 3:02 PM EDT documented in this encounter Results * Surgical Pathology Report (10/02/2021 3:47 PM EDT) Final Diagnosis [id number] ? Location: 4T; EA13; A The signing pathologist has (i) examined the relevant preparation(s) for the specimen(s) and (ii) rendered or confirmed the diagnosis(es). . ?Surgical Pathology DIAGNOSIS A - Transverse colon polyp, resection: - ??Tubular adenoma. Electronically signed by: ?Armand CRAVEN, Renea Verified: ??10/09/2021 16:09 ??Pathologist Performed at: ??-[facility] Dept. of [facility], [place], [place] SPECIMEN(S) SUBMITTED A - Transverse colon polyp, resection (1) CLINICAL INFORMATION Screening colonoscopy SPECIMEN PROCESSING A - Labeled/Fixativ e: Transverse colon polyp, formalin. Quantity/Size: Single, 0.3 x 0.3 x 0.2 cm. Tissue Description: Partially flattened tinajero-red mucosal polyp and underlying translucent mucosal tissue. Sections/Proces sing: Submitted en toto ??in 1 cassette labeled A1. ??shb 10/09/2021 4:09 PM EDT [facility] GI Biopsy 10/02/2021 3:47 PM EDT 10/02/2021 3:47 PM EDT Jordyn Merino MD PATHOLOGY/CYTOLOGY O WILLIAM Performing Organization Address [facility] Co de Phone Number [facility] [place] [address] * Specimen to Pathology (10/02/2021 3:47 PM EDT) AP Specimen 10/02/2021 3:47 PM EDT 10/02/2021 3:47 PM EDT Narrative [facility] - 10/02/2021 3:47 PM EDT Specimen requisition ordered. ??Separate Pathology report to follow Jordyn Merino MD PATHOLOGY/CYTOLOGY O WILLIAM Performing Organization Address [facility] Co de Phone Number [facility] [place] [address] * COLONOSCOPY (10/02/2021 3:02 PM EDT) COLONOSCOPY [facility] Endoscopy Procedure Date: 10/02/2021 3:02 PM ? Patient Name: Raymundo Tenorio ? Date of : 1955 ? Age: 66 ? Order #: [id number] ? Instrument Name: [id number] ? Procedure: ? Colonoscopy Indications: ? Positive [...] Site fentaNYL (pf) (50 mcg/mL) multi-dose injection ONCE PRN, Starting on Yuliet 10/02/21 at 1520, Until Yuliet 10/02/21 at 1835, Intra-Operative (Intra-Procedure), Routine Given 10/02/2021 3:26 PM EDT 50 mcg Given 10/02/2021 3:20 PM EDT 50 mcg lactated ringers infusion 100 mL/hr, Intravenous, CONTINUOUS, Starting on Yuliet 6 at 1415, Until Yuliet 10/02/21 at 1617, Endoscopy (Day of Procedure) New Bag 10/02/2021 2:31 PM EDT 100 mL/hr 100 mL/hr midazolam (pf) (Versed) (1 mg/mL) multi-dose injection ONCE PRN, Starting on Yuliet 10/02/21 at 1520, Until Yuliet 10/02/21 at 1835, Intra-Operative (Intra-Procedure), Routine Given 10/02/2021 3:31 PM EDT 1 mg Given 10/02/2021 3:29 PM EDT 1 mg Given 10/02/2021 3:27 PM EDT 1 mg documented in this encounter Active and Recently [...] RN) documented in this encounter Care Teams Attending Pathologist Relationship Specialty Start Date End Date Juan Dempsey MD [address] [place] [address] PCP - General Emergency Medicine 08/20/21 documented as of this encounter
--- OUTSIDE RECORDS SUMMARY | 2024-02-03 16:57 | XMS_ITS | Encounter Summary ---
Author Organization [facility] Address [facility] [place] [address] Care Team Providers Care Mining Speculator Name Role Phone Juan Dempsey MD Primary Care Provider [phone] Encounter Details Date Type Department Care Team (Late st Contact Info) Description 11/19/2021 Orders [place] [address] Ana Pringle MD [facility] [place] [address] Drug-induced hepatitis Social History Tobacco Use Types [...] [facility] H[facility] Oncology [address] [place] [address] 02/16/2024 10:20 AM EDT Hospital [place] [address] Mitali Griffiths APRN [facility] DR HEMATOLOGY [place] [address] 02/16/2024 1:30 PM EDT Office Visit Hematology [place] [phone] Albino Bartholomew MD [facility] DR HEMATOLOGY [place] [address] 04/17/2024 10:00 AM EST Office Visit Dermatology at [facility] [address] [place] [address] Oli Winter MD [address] [facility] [place] [address] documented as of this encounter Visit Diagnoses Diagnosis Drug-induced hepatitis Hepatitis, unspecified documented in this encounter Care Teams Mining Speculator Relationship Specialty Start Date End Date Juan Dempsey MD [address] [place] [address] PCP - General Emergency Medicine 08/20/21 documented as of this encounter
--- OUTSIDE RECORDS SUMMARY | 2024-02-03 16:57 | XMS_ITS | Encounter Summary ---
Author Organization [facility] Address [facility] [place] [address] Care Team Providers Care Professor Of Music Name Role Phone Juan Dempsey MD Primary Care Provider [phone] Encounter Details Date Type Department Care Team (Late st Contact Info) Description 11/26/2021 12:00 PM EDT Office Visit [place] [phone] Ana Pringle MD [facility] [place] [address] Drug-induced hepatitis Social History Tobacco Use Types [...] Time Taken Comments Blood Pressure 144/73 11/26/2021 11:40 AM EDT Pulse 59 11/26/2021 11:40 AM EDT Temperature - - Respiratory Rate - - Oxygen Saturation - - Inhaled Oxygen Concentration - - Weight 101.6 kg (224 lb) 11/26/2021 11:40 AM EDT Height 185 cm (6' 0.84) 11/26/2021 11:40 AM EDT Body Mass Index 29.69 11/26/2021 11:40 AM EDT documented in this encounter Progress Notes * Ana Pringle MD - 11/26/2021 12:00 PM EDT Gastroenterology and Hepatology Follow Up Note Patient: Cristofer Tenorio : 1955 Provider: Ana Pringle MD Problem List: #DILI AIH Radical nephrectomy for RCC on [...] 9 mg on 10/30/2021 and stopped prednisone ? Latest Reference Range & Units 08/07/21 09:11 08/27/21 12:16 08/29/21 08:36 09/01/21 09:09 09/04/21 09:30 09/08/21 15:48 09/10/21 12:50 09/17/21 12:27 09/24/21 00:00 10/01/21 00:00 10/08/21 12:57 10/28/21 09:41 11/04/21 Total Bilirubin 0.2 - 1.3 mg/dL 0.3 0.6 0.4 (E) 0.3 (E) 0.4 (E) 0.4 (E) 0.5 (E) 0.5 0.4 (E) 0.7 (E)0.6 0.5 0.6 0.5 Alk Phos 40 - 130 unit/L 153 (H) 198 (H) 188 ! (E) 158 ! (E) 137 ! (E) 123 ! (E) 116 (E) 131 (H) 127 ! (E) 108 (E) 96 102 90 95 AST 0 - 39 unit/L 23 308 (H) 162 ! (E) 67 ! (E) 35 (E) 29 (E) 30 (E) 65 (H) 24 (E) 15 (E) 25 44 (H)27 17 ALT 0 - 55 unit/L 49 707 (H) 779 ! (E) 473 ! (E) 274 ! (E) 166 ! (E) 153 ! (E) 166 (H) 111 ! (E) 58(E) 45 157 (H) 80 (H) 28 ? Interval History: No new symptoms with budesonide. Tolerating wlel. No ithcing, jaundice, or easy bruising. Current Outpatient Medications Medication Sig Dispense Refill ? ? budesonide [...] Take 20 mg by mouth daily. No current facility-administered medications for this visit. There were no vitals filed for this visit. There is no height or weight on file to calculate BMI. 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 - LFTs normalized - Continue on budesonide 9 mg daily - Repeat labs with follow up visit in one months, if enzymes still normal, will decrease budesonideto 6 mg daily Ana Pringle MD Section of Gastroenterology & Hepatology [address] [place] [address] Time spent reviewing records prior to this encounter: 5 minutes Time spent during encounter with patient including counselin minutes Time spent documenting encounter after office visit: 5 minutes Approximate total time devoted to this single encounter on the day of the encounter: 30 minutes Cc: Juan Dempsey MD documented in this encounter Plan of Treatment Upcoming Encounters Date Type Department Care Team (Late st Contact Info) Description 02/16/2024 9:15 AM EDT Laboratory Appointment Lab at [facility] Hematology Oncology [address] [place], [place] [id number] 02/16/2024 10:20 AM EDT Hospital Encounter CT Scan at [place] [phone] [facility] DR [place] [address] 02/16/2024 1:30 PM EDT Office Visit Hematology and Oncology at [place] [phone] [facility] DR [place] [address] 04/17/2024 10:00 AM EST Office Visit Dermatology at [facility] [address] [place] [address] Oli Winter MD [address] [facility] [place] [address] Scheduled Orders Name Type Priority Associated Diagnoses Orde r Schedule Comprehensive metabolic panel (non-fasting) Lab Routine Drug-induced hepatitis Expected: 12/27/2021 (Approximate), Expires: 06/28/2022 documented as of this encounter Results * (ABNORMAL) Prothrombin Time (12/22/2021 8:30 AM EDT) Prothrombin Time 14.3(H) 9.4 - 12.5 sec [facility] International Normalization Ratio 1.2 [facility] Comment: An INR <2.0 indicates [...] Lab Ana Pringle MD HEMATOLOGY ORDERABLE S [facility] [address] [place] [address] documented in this encounter Visit Diagnoses Diagnosis Drug-induced hepatitis Hepatitis, unspecified documented in this encounter Care Teams Professor Of Music Relationship Specialty Start Date End Date Juan Dempsey MD [address] [place] [address] PCP - General Emergency Medicine 08/20/21 documented as of this encounter
--- OUTSIDE RECORDS SUMMARY | 2024-02-03 16:57 | XMS_ITS | Encounter Summary ---
Author Organization [facility]ly [facility] Address [facility] [place] [address] Care Team Providers Care Tool Grinding Technician Name Role Phone Juan Dempsey MD Primary Care Provider [phone] Encounter Details Date Type Department Care Team (Latest Contact Info) Description 10/08/2021 12:46 PM EDT - 10/08/2021 11:59 PM EDT Hospital Encounter [place] [phone] Renal cell carcinoma, unspecified laterality; Medication management Discharge Disposition: Home Social History Tobacco Use [...] [facility] [place] Oncology [address] [place] [address] 02/16/2024 10:20 AM EDT Hospital [place] [address] Mitali Griffiths APRN [facility] [address] HEMATOLOGY [place] [address] 02/16/2024 1:30 PM EDT Office Visit H[place]ology [place] [address] Albino Bartholomew MD [facility] [address] HEMATOLOGY [place] [address] 04/17/2024 10:00 AM EST Office Visit Dermatology at [facility] [address] [place] [address] Oli Winter MD [address] [facility] [address] documented as of this encounter Procedures Procedure Name Priority Date/Time Associated Diagnosis Comments HEMOGRAM STAT 10/08/2021 12:57 PM EDT Renal cell carcinoma, unspecified laterality DIFFERENTIAL, AUTOMATED STAT 10/08/2021 12:57 PM EDT Renal cell carcinoma, unspecified laterality HC CBC,PLT & AUTO DIFF STAT 12:57 PM EDT Renal cell carcinoma, unspecified laterality HC THYROID STIMULATING HORMONE, SERUM STAT 10/08/2021 12:57 PM EDT Medication management COMPREHENSIVE METABOLIC PANEL STAT 10/08/2021 12:57 PM EDT Renal cell carcinoma, unspecified laterality documented in this encounter Results * (ABNORMAL) Differential, Automated (10/08/2021 12:57 PM EDT) Neutrophil % 92.2 % [facility] Neutrophil Absolute 11.75(H) 1.70 - 6.10 x10(3)/[facility] Lymph % 4.0 % [facility] Lymphocytes Abs 0.5(L) 0.9 - 3.2 x10(3)/[facility] Monocyte % 2.7 % [facility] Monocyte Abs 0.3 0.3 - 0.9 x10(3)/[facility] Eos % 0.2 % [facility] Eosinophils Abs 0.0 0.0 - 0.4 x10(3)/[facility] Basophil % 0.3 % [facility] Baso Absolute 0.0 0.0 - 0.1 x10(3)/[facility] Immature Gran % 0.60 % [facility] Comment: Immature granulocytes(IG's)percentage and absolute count will include metamyelocytes, myelocytes, and promyelocytes. Blood smears from CBCs yielding IG's will be scanned manually for concordance. If this scan disagrees with the automated IG or if promyelocytes are noted, a manual differential will be performed. Immature Gran Absolute 0.08(H) 0.00 - 0.04 x10(3)/[facility] Blood 10/08/2021 12:5 7 PM EDT 10/08/2021 1:24 PM EDT Narrative Resulting Agency Comment Spec In Lab Sara Loza MD HEMATOLOGY ORDERABLE S [facility] [place] [address] * (ABNORMAL) Hemogram (10/08/2021 12:57 PM EDT) White Blood Cell 12.7(H) 4.0 - 9.5 x10(3)/[facility] Red Blood Cell 4.88 4.58 - 5.54 x10(6)/[facility] Hemoglobin 14.3 13.7 - 16.5 g/dL [facility] Hematocrit 42.7 40.5 - 48.5 % [facility] Mean Cell Volume 87.5 82.9 - 93.1 fL [facility] Mean Cell Hemoglobin 29.3 27.5 - 32.1 pg [facility] Mean Cell Hemoglobin Concentration 33.5 32.0 - 35.7 g/dL [facility] Platelet 160 145 - 357 x10(3)/mc L [facility] RDW Standard Deviation 48.2(H) 36.0 - 45.0 fL [facility] RDW coefficient of variation 14.9(H) 11.4 - 13.8 % [facility] Mean Platelet Volume 9.9 7.6 - 12.9 [facility] NRBC% auto 0.0 % [facility] NRBC Absolute 0.000 0.000 - 0.000 x10(3)/mc L [facility] Blood 10/08/2021 12:5 7 PM EDT 10/08/2021 1:24 PM EDT Narrative Resulting Agency Comment Spec In Lab Sara Loza MD HEMATOLOGY ORDERABLE S [facility] [place] [address] * TSH (10/08/2021 12:57 PM EDT) Thyroid Stimulating Hormone 1.18 0.27 - 4.20 mcIU/mL [facility] Comment: Reference Interval (mcIU/mL): Females: ??First Trimester: 0.23-3.88 ??Second Trimester: 0.22-3.90 ??Third Trimester: 0.44-4.66 Blood 10/08/2021 12:5 7 PM EDT 10/08/2021 1:24 PM EDT Narrative Resulting Agency Comment Spec In Lab Albino Bartholomew MD CHEMISTRY ORDERABLES [facility] [place] [address] * (ABNORMAL) Comprehensive metabolic panel (non-fasting) (10/08/2021 12:57 PM EDT) Glucose 134 65 - 199 mg/dL [facility] Comment:Diabetes: >=200 mg/d L plus symptoms Blood Urea Nitrogen 41(H) 10 - 20 mg/dL [facility] Creatinine 1.68(H) 0.80 - 1.50 mg/dL [facility] Sodium 137 135 - 145 mmol/L [facility] Potassium 4.8 3.5 - 5.0 mmol/L [facility] Comment: Please note: ??Patients with WBC >100,000 may have falsely elevated Potassium levels. ??For accurate Potassium quantification in these patients send serum separator tube (gold top) for subsequent determinations. ??Contact the Clinical Chemistry Laboratory if there are any questions. Chloride 102 98 - 107 mmol/L [facility] Carbon Dioxide 24 22 - 31 mmol/L [facility] Anion Gap 11 5 - 15 mmol/L [facility] Calcium 9.1 8.5 - 10.5 mg/dL [facility] Protein, Total 6.4 6.1 - 8.0 g/dL [facility] Albumin 4.0 3.2 - 5.2 g/dL [facility] Aspartate Aminotransferase 25 0 - 39 unit/L [facility] Alanine Aminotransferase 45 0 - 55 unit/L [facility] Alkaline Phosphatase 96 40 - 130 unit/L [facility] Bilirubin, Total 0.6 0.2 - 1.3 mg/dL [facility] Est Glomerular Filtration Rate 42(L) >=60 mL/min/1. 73 m?? [facility] Comment: This patient? s estimated glomerular filtration rate (eGFR) is between 42 mL/min/1.73 m2 (patients with less muscle mass per kg body weight) and 48 mL/min/1.73 m2 (patients with more muscle mass per kg body weight) as determined by the CKD-EPI equation. Assessment of eGFR is not appropriate when creatinine concentrations are rapidly changing. For clinical decisions where creatinine clearance will affect therapy, a 24-hour urine creatinine clearance may be advised. Assignment of CKD stage 1 - 5 for patients with an eGFR near the transition point between stages may be based on clinical assessment of muscle mass and symptoms in addition to eGFR. Blood 10/08/2021 12:5 7 PM EDT 10/08/2021 1:24 PM EDT Narrative Resulting Agency Comment Spec In Lab Albino Bartholomew [place] [address] documented in this encounter Visit Diagnoses Diagnosis Renal cell carcinoma, unspecified laterality Medication management Encounter for long-term (current) use of other medications documented in this encounter Care Teams Tool Grinding Technician Relationship Specialty Start Date End Date Juan Dempsey MD [address] [place] [id number] PCP - General Emergency Medicine 08/20/21 documented as of this encounter
--- OUTSIDE RECORDS SUMMARY | 2024-02-03 16:57 | XMS_ITS | Encounter Summary ---
Author Organization [facility] Address [facility] [place] [address] Care Team Providers Care Wallpaper Inspector And Shipper Name Role Phone Juan Dempsey MD Primary Care Provider [phone] Encounter Details Date Type Department Care Team (Latest Contact Info) Description 10/28/2021 9:30 AM EDT Laboratory Appointment Lab at [facility] [address] [place] [address] Renal cell carcinoma, unspecified laterality Social History [...] [facility] H[facility] Oncology [address] [place] [address] 02/16/2024 10:20 AM EDT Hospital [place] [phone] Mitali Griffiths APRN [facility] [address] [place] [address] 02/16/2024 1:30 PM EDT Office Visit Hematology [place] [address] Albino Bartholomew MD [facility] [address] HEMATOLOGY [place] [address] 04/17/2024 10:00 AM EST Office Visit Dermatology at [facility] [address] [place] [phone] Oli Winter MD [address] [facility] [place] [address] documented as of this encounter Procedures Procedure Name Priority Date/Time Associated Diagnosis Comments HEMOGRAM Routine 10/28/2021 9:41 AM EDT Renal cell carcinoma, unspecified laterality DIFFERENTIAL, AUTOMATED Routine 10/28/2021 9:41 AM EDT Renal cell carcinoma, unspecified laterality HC CBC,PLT & AUTO DIFF Routine 10/28/2021 9:41 AM EDT Renal cell carcinoma, unspecified laterality HC VENIPUNCTURE Routine 10/28/2021 9:41 AM EDT Renal cell carcinoma, unspecified laterality documented in this encounter Results * (ABNORMAL) Differential, Automated (10/28/2021 9:41 AM EDT) Neutrophil % 77.2 % [facility] Neutrophil Absolute 7.15(H) 1.70 - 6.10 x10(3)/mc L [facility] Lymph % 11.8 % [facility] Lymphocytes Abs 1.1 0.9 - 3.2 x10(3)/mc L [facility] Monocyte % 5.2 % [facility] Monocyte Abs 0.5 0.3 - 0.9 x10(3)/mc L [facility] Eos % 0.2 % [facility] Eosinophils Abs 0.0 0.0 - 0.4 x10(3)/mc L [facility] Basophil % 0.6 % [facility] Baso Absolute 0.1 0.0 - 0.1 x10(3)/mc L [facility] Immature Gran % 5.00 % [facility] Comment: Immature granulocytes(IG's)percentage and absolute count will include metamyelocytes, myelocytes, and promyelocytes. Blood smears from CBCs yielding IG's will be scanned manually for concordance. If this scan disagrees with the automated IG or if promyelocytes are noted, a manual differential will be performed. Immature Gran Absolute 0.46(H) 0.00 - 0.04 x10(3)/mc L [facility] Blood 10/28/2021 9:41 AM EDT 10/28/2021 12:45 PM EDT Narrative Resulting Agency Comment Spec In Lab Albino Bartholomew MD HEMATOLOGY ORDERABLE S [facility] [place] [address] * (ABNORMAL) Hemogram (10/28/2021 9:41 AM EDT) White Blood Cell 9.3 4.0 - 9.5 x10(3)/[facility] Red Blood Cell 4.37(L) 4.58 - 5.54 x10(6)/ L [facility] Hemoglobin 12.2(L) 13.7 - 16.5 g/dL [facility] Hematocrit 38.4(L) 40.5 - 48.5 % [facility] Mean Cell Volume 87.9 82.9 - 93.1 fL [facility] Mean Cell Hemoglobin 27.9 27.5 - 32.1 pg [facility] Mean Cell Hemoglobin Concentration 31.8(L) 32.0 - 35.7 g/dL [facility] Platelet 275 145 - 357 x10(3)/[facility] RDW Standard Deviation 53.2(H) 36.0 - 45.0 [facility] RDW coefficient of variation 16.6(H) 11.4 - 13.8 % [facility] Mean Platelet Volume 9.7 7.6 - 12.9 [facility] NRBC% auto 0.0 % [facility] NRBC Absolute 0.000 0.000 - 0.000 x10(3)/[facility] Blood 10/28/2021 9:41 AM EDT 10/28/2021 12:45 PM EDT Narrative Resulting Agency Comment Spec In Lab Albino Bartholomew MD HEMATOLOGY ORDERABLE S [facility] [place] [address] * (ABNORMAL) Comprehensive metabolic panel (non-fasting) (10/28/2021 9:41 AM EDT) Glucose 130 65 - 199 mg/dL [facility] Comment:Diabetes: >=200 mg/d L plus symptoms Blood Urea Nitrogen 22(H) 10 - 20 mg/dL [facility] Creatinine 1.25 0.80 - 1.50 mg/dL [facility] Sodium 139 135 - 145 mmol/L [facility] Potassium 4.1 3.5 - 5.0 mmol/L [facility] Comment: Please note: ??Patients with WBC >100,000 may have falsely elevated Potassium levels. ??For accurate Potassium quantification in these patients send serum separator tube (gold top) for subsequent determinations. ??Contact the Clinical Chemistry Laboratory if there are any questions. Chloride 105 98 - 107 mmol/L [facility] Carbon Dioxide 29 22 - 31 mmol/L [facility] Anion Gap 5 5 - 15 mmol/L [facility] Calcium 9.0 8.5 - 10.5 mg/dL [facility] Protein, Total 6.0(L) 6.1 - 8.0 g/dL [facility] Albumin 3.8 3.2 - 5.2 g/dL [facility] Aspartate Aminotransferase 44(H) 0 - 39 unit/L [facility] Alanine Aminotransferase 157(H) 0 - 55 unit/L [facility] Alkaline Phosphatase 102 40 - 130 unit/L [facility] Bilirubin, Total 0.5 0.2 - 1.3 mg/dL [facility] Est Glomerular Filtration Rate 64 >=60 mL/min/1. 73 m?? [facility] Comment: This patient's [...] Bartholomew MD CHEMISTRY ORDERABLES Performing Organization Address City/State/[facility] [place] [address] documented in this encounter Visit Diagnoses Diagnosis Renal cell carcinoma, unspecified laterality documented in this encounter Care Teams Wallpaper Inspector And Shipper Relationship Specialty Start Date End Date Juan Dempsey MD [address] [place] [address] PCP - General Emergency Medicine 08/20/21 documented as of this encounter
--- OUTSIDE RECORDS SUMMARY | 2024-02-03 16:57 | XMS_ITS | Encounter Summary ---
Author Organization [facility] [place] [address] Care Team Providers Care Linotype Operator Name Role Phone Juan Dempsey MD Primary Care Provider [phone] Reason for Referral * Consultation (Emergency) - Closed Specialty Diagnoses / Procedures Referred By Burak mcnair Referred To Contact Gastroenterology Diagnoses Elevated LFTs Kelin Carlos APRN [facility] [place] [address] Jordyn Merino MD [facility] [place] [address] Referral ID Status Reason Start Date Expiration Date V isits Requested Visits Authorized [id number] Closed Specialty Service Requested 10/29/2021 10/29/2022 1 1 Reason for Visit * Reason Comments Follow-up Encounter Details Date Type Department Care Team (Late st Contact Info) Description 10/29/2021 10:00 AM EDT Office Visit [place]ology [place] [address] Kelin Carlos APRN [facility] [place] [address] Renal cell carcinoma, unspecified laterality; Elevated LFTs; Chronic deep vein thrombosis of left popliteal vein; Swelling; Acute pain of left shoulder Social History Tobacco Use Types Packs/Day Years [...] Sign Reading Time Taken Comments Blood Pressure 135/78 10/29/2021 10:08 AM EDT Pulse 72 10/29/2021 10:08 AM EDT Temperature - - Respiratory Rate 15 10/29/2021 10:08 AM EDT Oxygen Saturation 97% 10/29/2021 10:08 AM EDT Inhaled Oxygen Concentration - - Weight 100.2 kg (221 lb) 10/29/2021 10:07 AM EDT Height 185 cm (6' 0.84) 10/29/2021 10:08 AM EDT Body Mass Index 29.29 10/29/2021 10:07 AM EDT documented in this encounter Patient Instructions * Patient Instructions* Kelin Carlos APRN - 10/29/2021 10:24 AM EDT Images from the original note were not included. Budesonide (Systemic) Printed on 2021-10-29 You must carefully read the Consumer Information Use and Disclaimer below in order to understand and correctly use this information Pronunciation (byoo KENNETH oh nide) Brand Names: USEntocort EC [DSC]; Ortikos; Tarpeyo; Uceris Brand Names: CanadaCortiment; Entocort; Jorveza What is this drug used for? It is used to treat Crohn's disease. It is used to treat ulcerative colitis. It is used in people with certain kidney problems to lower the risk of worsening kidney problems. It may be given to you for other reasons. Talk with the doctor. What do I need to tell my doctor BEFORE I take this drug? If you are allergic to this drug; any part of this drug; or any other drugs, foods, or substances. Tell your doctor about the allergy and what signs you had. If you have liver disease. If you take any drugs (prescription or OTC, natural products, vitamins) that must not be taken withthis drug, like certain drugs that are used for HIV, infections, or depression. There are many drugs that must not be taken with this drug. Your doctor or pharmacist can tell you if you are taking a drug that must not be taken with this drug. This is not a list of all drugs or health problems that interact with this drug. Tell your doctor and pharmacist about all of your drugs (prescription or OTC, natural products, vitamins) and health problems. You must check to make sure that it is safe for you to take this drug with all of your drugs and health problems. Do not start, stop, or change the dose of any drug withoutchecking with your doctor. What are some things I need to know or do while I take this drug? Tell all of your health care providers that you take this drug. This includes your doctors, nurses,pharmacists, and dentists. You may have more chance of getting an infection. Wash hands often. Stay away from people with infections, colds, or flu. Have blood work checked as you have been told by the doctor. Talk with the doctor. If you have high blood sugar (diabetes), you will need to watch your blood sugar closely. If you have been taking this drug for many weeks, talk with your doctor before stopping. You may want to slowly stop this drug. Chickenpox and measles can be very bad or even deadly in some people taking steroid drugs like thisdrug. Avoid being near anyone with chickenpox or measles if you have not had these health problems before. If you have been exposed to chickenpox or measles, talk with your doctor. This drug may lower how much natural steroid is in your body. If you have a fever, an infection, surgery, or you are hurt, talk with your doctor. You may need extra doses of oral steroids. These extra steroids will help your body deal with these stresses. Carry a warning card saying that there may be times when you need extra steroids. This drug may cause weak bones (osteoporosis) with long-term use. Talk with your doctor to see if you have a higher chance of weak bones or if you have any questions. Have a bone density test as you have been told by your doctor. Talk with your doctor. Long-term use may raise the chance of cataracts or glaucoma. Talk with the doctor. Have your eye pressure checked if you are on this drug for a long time. Talk with your doctor. Avoid grapefruit and grapefruit juice. Talk with your doctor before getting any vaccines. Use of some vaccines with this drug may either raise the chance of an infection or make the vaccine not work as well. Tell your doctor if you have missed a dose or recently stopped this drug and you feel very tired, weak, or shaky, or have a fast heartbeat, confusion, sweating, or dizziness. If you are 65 or older, use this drug with care. You could have more side effects. This drug may affect growth in children and teens in some cases. They may need regular growth checks. Talk with the doctor. This drug may cause harm to the unborn baby if you take it while you are . If you are or you get while taking this drug, call your doctor right away. Tell your doctor if you are breast-feeding. You will need to talk about any risks to your baby. What are some side effects that I need to call my doctor about right away? WARNING/CAUTION: Even though it may be rare, some people may have very bad and sometimes deadly side effects when taking a drug. Tell your doctor or get medical help right away if you have any of thefollowing signs or symptoms that may be related to a very bad side effect: Signs of an allergic reaction, like rash; hives; itching; red, swollen, blistered, or peeling skin with or without fever; wheezing; tightness in the chest or throat; trouble breathing, swallowing, ortalking; unusual hoarseness; or swelling of the mouth, face, lips, tongue, or throat. Signs of high blood sugar like confusion, feeling sleepy, more thirst, more hungry, passing urine more often, flushing, fast breathing, or breath that smells like fruit. Signs of infection like fever, chills, very bad sore throat, ear or sinus pain, cough, more sputum or change in color of sputum, pain with passing urine, mouth sores, or wound that will not heal. Signs of a weak adrenal gland like a very bad upset stomach or throwing up, very bad dizziness or passing out, muscle weakness, feeling very tired, mood changes, not hungry, or weight loss. Signs of high blood pressure like very bad headache or dizziness, passing out, or change in eyesight. Any unexplained bruising or bleeding. Black, tarry, or bloody stools. Throwing up blood or throw up that looks like coffee grounds. Skin changes (pimples, stretch evans, slow healing, hair growth). A fatty pad or hump between the shoulders. Round face. Swelling in the arms or legs. Shortness of breath. Bone pain. Change in eyesight. What are some other side effects of this drug? All drugs may cause side effects. However, many people have no side effects or only have minor sideeffects. Call your doctor or get medical help if any of these side effects or any other side effects bother you or do not go away: Delayed-release capsules (Tarpeyo): Muscle spasm. Weight gain. Heartburn. Feeling tired or weak. All other products: Headache. Signs of a common cold. Constipation, diarrhea, stomach pain, upset stomach, or throwing up. Heartburn. Gas. Feeling dizzy, tired, or weak. Back pain. Joint pain. These are not all of the side effects that may occur. If you have questions about side effects, call your doctor. Call your doctor for medical advice about side effects. You may report side effects to your national health agency. How is this drug best taken? Use this drug as ordered by your doctor. Read all information given to you. Follow all instructionsclosely. All products: Take in the morning if taking once a day. Some drugs may need to be taken on an empty stomach at least 1 hour before a meal. For some drugs it does not matter. If you are not sure how to take this drug with regard to food, check with your pharmacist. Keep taking this drug as you have been told by your doctor or other health care provider, even if you feel well. Extended-release tablets: Swallow whole. Do not chew, break, or crush. Delayed-release and extended-release capsules: Swallow whole. Do not chew or crush. Some products may be opened and sprinkled on a spoonful of applesauce. Some products must be swallowed whole. Check with your pharmacist to see if you can open this product. What do I do if I miss a dose? Delayed-release capsules (Tarpeyo): Skip the missed dose and go back to your normal time. Do not take 2 doses at the same time or extra doses. All other products: Take a missed dose as soon as you think about it. If it is close to the time for your next dose, skip the missed dose and go back to your normal time. Do not take 2 doses at the same time or extra doses. How do I store and/or throw out this drug? Store at room temperature protected from light. Store in a dry place. Do not store in a bathroom. Keep lid tightly closed. Keep all drugs in a safe place. Keep all drugs out of the reach of children and pets. Throw away unused or drugs. Do not flush down a toilet or pour down a drain unless you are told to do so. Check with your pharmacist if you have questions about the best way to throw out drugs. There may be drug take-back programs in your area. General drug facts If your symptoms or health problems do not get better or if they become worse, call your doctor. Do not share your drugs with others and do not take anyone else's drugs. Some drugs may have another patient information leaflet. If you have any questions about this drug,please talk with your doctor, nurse, pharmacist, or other health care provider. If you think there has been an overdose, call your poison control center or get medical care right away. Be ready to tell or show what was taken, how much, and when it happened. Consumer Information Use and Disclaimer: This generalized information is a limited summary of diagnosis, treatment, and/or medication information. It is not meant to be comprehensive and should be used as a tool to help the user understand and/or assess potential diagnostic and treatment options. It does NOT include all information about conditions, treatments, medications, side effects, or risksthat may apply to a specific patient. It is not intended to be medical advice or a substitute for the medical advice, diagnosis, or treatment of a health care provider based on the health care provider's examination and assessment of a patient's specific and unique circumstances. Patients must speak with a health care provider for complete information about their health, medical questions, and treatment options, including any risks or benefits regarding use of medications. This information doesnot endorse any treatments or medications as safe, effective, or approved for treating a specific patient. [employer] and its affiliates disclaim any warranty or liability relating to this information or the use thereof. The use of this information is governed by the Terms of Use, available at h ttps://www.[employer].com/en/know/ceybwruz-aqbwvioxzgpem-azzau. Last Reviewed Date 2021-05-05 ?? 2021 [employer]. and its affiliates and/or licensors. All rights reserved. Add To Packet Print HL7 Request OK Packet Contents Conditions/Procedures Conditions Procedures Discharge Instructions Healthy Living Natural Products Medications Adult Medications Pediatric Medications Packet Options Language [] Greek copy of non-Greek leaflets [] Packet Summary [] Signature Page Font Size Store Packet Clear Print Enter Packet Name Do NOT use any patient specific information in the packet name. This could be a violation of HIPAA requirements. Enter Packet Name: Cancel Store Packet Search Browse Stored Packets Preview Current Packet Search Patient Education Search Adult Medications Leaflet Preview Print Leaflet Add To Packet Budesonide (Nasal) Leaflet Preview Print Leaflet Add To Packet Budesonide (Oral Inhalation) Leaflet Preview Print Leaflet Add To Packet Budesonide (Systemic) Leaflet Preview Print Leaflet Add To Packet Budesonide (Topical) Leaflet Preview Print Leaflet Add To Packet Budesonide and Eformoterol [Budesonide and Formoterol] Leaflet Preview Print Leaflet Add To Packet Budesonide and Formoterol Leaflet Preview Print Leaflet Add To Packet Budesonide Foam [Budesonide (Topical)] Leaflet Preview Print Leaflet Add To Packet Budesonide, Formoterol, and Glycopyrrolate [Budesonide,Glycopyrrolate, and Formoterol] Leaflet Preview Print Leaflet Add To Packet Budesonide, Glycopyrrolate, and Formoterol Leaflet Preview Print Leaflet Add To Packet Budesonide, Glycopyrrolate, and Formoterol Fumarate [Budesonide, Glycopyrrolate, and Formoterol] Pediatric Medications Leaflet Preview Print Leaflet Add To Packet Budesonide (Nasal) Leaflet Preview Print Leaflet Add To Packet Budesonide (Oral Inhalation) Leaflet Preview Print Leaflet Add To Packet Budesonide (Systemic) Leaflet Preview Print Leaflet Add To Packet Budesonide and Eformoterol [Budesonide and Formoterol] Leaflet Preview Print Leaflet Add To Packet Budesonide and Formoterol documented in this encounter Progress Notes * Kelin Carlos APRN - 10/29/2021 10:00 AM EDT Images from the original note were not included. [facility] Oncology - Follow Up Visit [...] f/u on kidney cancer. Accompanied by Emily. -Has continued to require intermittent steroid use for transaminitis suspected related to immunotherapy. -Currently taking prednisone 40 mg/day -Still holding atorvastatin -Went to ED at [facility] 10/2021 under guidance from PCP for fever and L leg injury; found to have DVT and started on Eliquis, currently on 10 mg BID, switching to 5 mg BID as prescribed -He subsequently had a telehealth visit with Dr. Hou, per his note, chest CT showed new R apical pulmonary nodule 6 mm in size; planning for staging MRI of abdomen (see note 10/21/21) -Had generalized swelling earlier this week, especially notable in face, neck, and extremities; swelling is down today; unclear etiology -Had a cough, dx'd w/parainfluenza virus; symptoms mostly resolved -Generally feels well/at baseline -No fevers/chills since hospitalization -No urinary or bowel concerns -Intermittent L shoulder pain, takes occasional Tylenol 325 mg/day w/effect -No pain otherwise or other focal complaints -Saw Dr. Winter/Derm for f/u yesterday Patient Active Problem List Diagnosis Code ??? Renal mass N28.89 ??? Renal cell carcinoma C64.9 ??? Medication management Z79.899 PMH, PSH, and current medications reviewed, as documented in the electronic medical record. Current Outpatient Medications on File Prior to Visit Medication Sig Dispense Refill ??? 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 No tenderness to palpation of Lshoulder. Extremities: L LE edema. Neurological: Alert & oriented, no focal deficits. Heme: No cervical or supraclavicular adenopathy. Psych: Conversant, normal mood and affect. Vitals reviewed. BP 135/78 (Patient Position: Sitting) Pulse 72 Resp 15 Ht 185 cm (6' 0.84) Wt 100.2 kg (221 lb) SpO2 97% BMI 29.29 kg/m?? Wt Readings from Last 3 Encounters: 10/29/21 100.2 kg (221 lb) 10/08/21 97.4 kg (214 lb 12.8 oz) 10/02/21 95.3 kg (210 lb) Results: Latest Reference Range & Units 10/28/21 09:41 WBC 4.0 - 9.5 x10(3)/mcL 9.3 RBC 4.58 - 5.54 x10(6)/mcL 4.37 (L) Hemoglobin 13.7 - 16.5 g/dL 12.2 (L) Hematocrit 40.5 - 48.5 % 38.4 (L) MCV 82.9 - 93.1 fL 87.9 MCH 27.5 - 32.1 pg 27.9 MCHC 32.0 - 35.7 g/dL 31.8 (L) RDWSD 36.0 - 45.0 fL 53.2 (H) RDWCV 11.4 - 13.8 % 16.6 (H) Platelets 145 - 357 x10(3)/mcL 275 MPV 7.6 - 12.9 fL 9.7 NRBC % Auto % 0.0 NRBC Abs Auto 0.000 - 0.000 x10(3)/mcL 0.000 Neutr Abs (ANC) 1.70 - 6.10 x10(3)/mcL 7.15 (H) Neutrophils % % 77.2 Immature Gran % % 5.00 [1] Lymphocytes % % 11.8 Monocytes % % 5.2 Eosinophils % % 0.2 Basophils % % 0.6 Roro Gran Abs 0.00 - 0.04 x10(3)/mcL 0.46 (H) Lymphocytes Abs 0.9 - 3.2 x10(3)/mcL 1.1 Monocyte Abs 0.3 - 0.9 x10(3)/mcL 0.5 Eosinophils Abs 0.0 - 0.4 x10(3)/mcL 0.0 Basophils Abs 0.0 - 0.1 x10(3)/mcL 0.1 Sodium 135 - 145 mmol/L 139 Potassium 3.5 - 5.0 mmol/L 4.1 [2] Chloride 98 - 107 mmol/L 105 CO2 22 - 31 mmol/L 29 Anion Gap 5 - 15 mmol/L 5 BUN 10 - 20 mg/dL 22 (H) Creatinine 0.80 - 1.50 mg/dL 1.25 Estimated GFR >=60 mL/min/1.73 m?? 64 [3] Calcium 8.5 - 10.5 mg/dL 9.0 Glucose Lvl 65 - 199 mg/dL 130 [4] Total Protein 6.1 - 8.0 g/dL 6.0 (L) Albumin 3.2 - 5.2 g/dL 3.8 Total Bilirubin 0.2 - 1.3 mg/dL 0.5 Alk Phos 40 - 130 unit/L 102 AST 0 - 39 unit/L 44 (H) ALT 0 - 55 unit/L 157 (H) Pathology: 10/02/21 (colonoscopy/biopsy): DIAGNOSIS A - Transverse [...] (pT): ??pT3a ?Regional Lymph Nodes (pN): ??pN1 Imagin10/20/21 CXR ([place]): 10/16/21: IMPRESSION 1. Unexpected finding: New 6 [...] not limited to infusion reactions, fatigue, fevers/chills, ju lgias/arthralgias, rash, pruritis, thyroid dysfunction, autoimmune SEs impacting virtually any organ (thyroid, skin, colon, lungs, etc.) which can be severe or life-threatening. Grade 3 or higher adverse events of any cause occurred in 32.4% of the patients who received pembrolizumab and in 17.7% of those who received placebo. Sunitinib has also been studied in the adjuvant setting however, the data is mixed and treatment can be difficult [...] taper. Pt prefers to get labs at [facility]. We'll send orders and I'll ask our book retailer to f/u on results. Advised pt to [...] Raymundo and Emily agree with this plan. L LE DVT: continue Eliquis per PCP. Generalized swelling: unclear etiology, though it seems to have resolved. Advised continue monitoring and seeking care if it recurs. If recurs, would consider U/A to look for proteinuria/?neprotic syndrome. L shoulder pain: ? 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 Symptoms are intermittent and currently managed w/small doses of Tylenol (325 mg/day). Advised to call/seek care if worsening. Mr. Tenorio asked appropriate questions and verbalized good understanding of and agreement with the plan. I encouraged him to call anytime with questions or concerns and he agreed. Plan: -Repeat CMP in 1 week locally/[facility] -Stop prednisone and start budesonide 9 mg/day -Referral to Gastroenterology -keep scheduled MRI and f/u with Dr. Hou -Tentatively RTC in 4 weeks w/labs Mr. Tenorio asked appropriate questions and verbalized good understanding of and agreement with the plan. I encouraged him to call anytime with questions or concerns and he agreed. Kelin Carlos APRN Oncology Time Attestation: I certify spending at least 45 minutes in providing care to this patient today 10/29/21 as reflectedby the following activities: - review of the medical record in the chart - discussing of medical decision making - documenting the outcome of today's visit as above documented in this encounter Plan of Treatment Upcoming Encounters Date Type Department Care Team (Late st Contact Info) Description 02/16/2024 9:15 AM EDT Laboratory Appointment Lab at [facility] Hematology Oncology [address] [place] [id number] 02/16/2024 10:20 AM EDT Hospital [place] [phone] Mitali Griffiths APRN [facility] [place] [address] 02/16/2024 1:30 PM EDT Office Visit Hematology [place] [phone] Albino Bartholomew MD [facility] [place] [address] 04/17/2024 10:00 AM EST Office Visit Dermatology at [facility] [address] [place] [address] Oli Winter MD [address] [place] [address] Scheduled Referrals Name Type Priority Associated Diagnoses Order Schedule Referral to Gastroenterology Outpatient Referral STAT Elevated LFTs Ordered: 10/29/2021 documented as of this encounter Results * (ABNORMAL) Comprehensive metabolic panel (non-fasting) (11/26/2021 9:13 AM EDT) Glucose 184 65 - 199 mg/dL [facility] Comment:Diabetes: >=200 mg/d L plus symptoms Blood Urea Nitrogen 25(H) 10 - 20 mg/dL [facility] Creatinine 1.37 0.80 - 1.50 mg/dL [facility] Sodium 141 135 - 145 mmol/L [facility] Potassium 3.6 3.5 - 5.0 mmol/L [facility] Comment: Please note: ??Patients with WBC >100,000 may have falsely elevated Potassium levels. ??For accurate Potassium quantification in these patients send serum separator tube (gold top) for subsequent determinations. ??Contact the Clinical Chemistry Laboratory if there are any questions. Chloride 104 98 - 107 mmol/L [facility] Carbon Dioxide 28 22 - 31 mmol/L [facility] Anion Gap 9 5 - 15 mmol/L [facility] Calcium 9.3 8.5 - 10.5 mg/dL [facility] Protein, Total 6.5 6.1 - 8.0 g/dL [facility] Albumin 4.2 3.2 - 5.2 g/dL [facility] Aspartate Aminotransferase 17 0 - 39 unit/L [facility] Alanine Aminotransferase 28 0 - 55 unit/L [facility] Alkaline Phosphatase 95 40 - 130 unit/L [facility] Bilirubin, Total 0.5 0.2 - 1.3 mg/dL [facility] Est Glomerular Filtration Rate 57(L) >=60 mL/min/1. 73 m?? [facility] Comment: This patient's estimated GFR [...] and symptoms in addition to eGFR. 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
--- OUTSIDE RECORDS SUMMARY | 2024-02-03 16:57 | XMS_ITS | Encounter Summary ---
[place] [address] Care Team Providers Care Junior Assistant Manager Name Role Phone Juan Dempsey MD Primary Care Provider [phone] Reason for Referral * Consultation (Routine) - Closed Specialty Diagnoses / Procedures Referred By Burak mcnair Referred To Contact Hematology and Oncology Diagnoses Family history of melanoma History of renal carcinoma Oli Winter MD [address] [facility] [place] [address] [facility] Hem Onc [address] [place] [address] Referral ID Status Reason Start Date Expiration Date V isits Requested Visits Authorized [id number] Closed Consult, Test & Treat 10/28/2021 10/28/2022 1 1 Reason for Visit * Reason Comments Skin Check Encounter Details Date Type Department Care Team (Late st Contact Info) Description 10/28/2021 8:45 AM EDT Office Visit Dermatology at [facility] [address] [place] [address] Oli Winter MD [address] [place] [address] Rodríguez angioma; SK (seborrheic keratosis); Multiple benign melanocytic nevi of both upper extremities, both lower extremities, and trunk; Lentigines; Sebaceous hyperplasia; Scalp pruritus; Family history of melanoma Social History Tobacco Use Types Packs/Day Years [...] Progress Notes * Oli Winter MD - 10/28/2021 8:45 AM EDT Images from the original note were not included. DEPARTMENT OF DERMATOLOGY Medical Dermatology Clinic Provider: Oli Winter MD FAAD at Dermatology at [facility] Patient's preferred name Cristofer Preferred contact method for results [x]Phone: with detailed results? [x]Yes []No []myD-H []Letter PAST MEDICAL HISTORY (if blank, patient denies history) Melanoma - Dysplastic nevi - SCC - BCC - [place] [] cryotherapy [] efudex [] PDT [] Other Relevant Medications [x] Immunosuppression - prednisone [] Transplant [] Oncogenic medication [] Nicotinamide 500mg po bid Other relevant history Plantar Wart, Left Renal ca hx/ s/p nephrectomy Scalp pruritus FAMILY HISTORY (if blank, patient denies history) Melanoma Brother NMSC - Other relevant history Brother had pancreatic cancer and Mother had breast cancer SOCIAL HISTORY Occupation: retired History of Present Illness: Cristofer Tenorio is 66 y.o. and here for the following: here for full skin exam. ??? History of scalp pruritus for many years currently treated head and shoulders as needed but he started prednisone recently and the itching resolved. ??? Request skin cancer screening Medications: Reviewed in eD-H Allergies: Reviewed in eD-H Skin Examination Standby: NAVEEN ANGELO LPN Well developed, well-nourished in no apparent distress, [...] plates, significant for the following. Exam Findings/Assessment/Plan Sebaceous Gland Hyperplasia Yellow-hued, cauliflower-like umbilicated papules c/w sebaceous hyperplasia on the face Counseled: benign growths of sebaceous glands (hair follicle unit) that harbor a rare risk of sebaceous carcinoma, and treatment options, including but not limited to topical retin-a, light electrocautery, or laser therapy. Cosmetic treatment and therefore, likely moc-ae-uvakno expense. Handout given. Answered all questions. Patient declines treatment at this time. ??? Return to clinic if changes in color, enlarges, or should bleeding or other symptoms occur. Patient agrees to plan. Scalp pruritus No dermatitis. Resolved with prednisone. Recommend head and shoulders for mild pruritus and consider starting Lidex solution to the scalp for moderate or severe itching. Discussed clinical findings and recommendations, as above. Discussed major risks of topical steroids including skin atrophy prolonged use. Answered all questions. Patient elects to consider for Lidexif flares severe ??? If worsens, consider Lidex solution twice daily to affected areas on the scalp as needed for itching Nevi Well-demarcated, round or oval, tinajero or brown macules and papules with benign morphology on the head, neck, trunk, right axilla, and extremities Morphology reassuring for benign nevi. Counseled: Nevi and risks for melanoma arising in a nevus. Recommend regular self-examinations. Answered all questions. Reviewed ABCDEs of melanoma, as below. ??? Return to clinic as needed for changes in color, size, shape or thickness or should bleeding orother symptoms occur. Patient agrees to plan. Seborrheic [...] unless symptoms develop. Treatment considered cosmetic and edd-[id number]. Treatment options, including but not limited to [...] mutation, patient elects to have gene testing ?? Recommend regular physical and provider skin examinations. ?? Referral : Genetics Patient Counseled [Skin Cancer] [...] for skin cancer screening in 12 months. ?? Regular full body self examinations and return to clinic for new suspicious lesions or if changes/symptoms in existing lesions develop. Follow-up: Skin cancer screening in 12. Return sooner as needed for suspicious lesion, new or worsening dermatitis. [] Recall placed [x] Forwarded to planner/scheduler [] Patient scheduled before exiting Scribe attestation: NAVEEN ANGELO LPN has performed the documentation for this encounter in the presence of and acting as a scribe for MD LEONEL Leal. I performed the above scribed service and agree with the accuracy of the documentation in this encounter. Reviewed and signed by: MD LEONEL Leal Dermatology [facility] documented in this encounter Plan of Treatment Upcoming Encounters Date Type Department Care Team (Late st Contact Info) Description 02/16/2024 9:15 AM EDT Laboratory Appointment Lab at [facility] Hematology Oncology [address] [place] [address] 02/16/2024 10:20 AM EDT Hospital Encounter CT Scan at [place] [phone] Mitali Griffiths APRN [facility] DR HEMATOLOGY [place] [address] 02/16/2024 1:30 PM EDT Office Visit Hematology and Oncology at [place] [phone] Albino Bartholomew MD [facility] DR HEMATOLOGY [place] [address] 04/17/2024 10:00 AM EST Office Visit Dermatology at [facility] [address] [place] [address] Oli Winter MD [address] [facility] [place] [address] Scheduled Referrals Name Type Priority Associated Diagnoses Orde r Schedule Referral to Genetics Outpatient Referral Routine Family history of melanoma Ordered: 10/28/2021 documented as of this encounter Visit Diagnoses Diagnosis Rodríguez angioma Nevus, non-neoplastic SK (seborrheic keratosis) Other seborrheic keratosis Multiple benign melanocytic nevi of both upper extremities, both lower extremities, and trunk Lentigines Other dyschromia Sebaceous hyperplasia Other specified disease of sebaceous glands Scalp pruritus Unspecified pruritic disorder Family history of melanoma Family history of other specified malignant neoplasm documented in this encounter Care Teams Junior Assistant Manager Relationship Specialty Start Date End Date Juan Dempsey MD [address] [place] [address] PCP - General Emergency Medicine 08/20/21 documented as of this encounter
--- OUTSIDE RECORDS SUMMARY | 2024-02-03 16:57 | XMS_ITS | Encounter Summary ---
Author Organization [facility] Address [facility] [place] [address] Care Team Providers Care Breakfast Cook Name Role Phone Juan Dempsey MD Primary Care Provider [phone] Encounter Details Date Type Department Care Team (Late st Contact Info) Description 10/20/2021 8:10 PM EDT Ancillary Procedure Radiology Library at [facility] [place] [address] Juan Dempsey MD [address] [place] [address] Social History Tobacco Use Types [facility] [place] On[facility] [address] [place] [address] 02/16/2024 10:20 AM EDT Hospital [place] [address] Mitali Griffiths APRN [facility] [address] [place] [address] 02/16/2024 1:30 PM EDT Office Visit [place]ology [place] [phone] Albino Bartholomew MD [facility] [address] [place] [address] 04/17/2024 10:00 AM EST Office Visit Dermatology at [facility] [address] [place] [address] Oli Winter MD [address] [facility] [place] [address] documented as of this encounter Procedures Procedure Name Priority Date/Time Associated Diagnosis Comments FILM LIBRARY STORAGE ONLY DX CHEST Routine 10/20/2021 8:01 PM EDT documented in this encounter Results * Film Library- Storage Only DX Chest (10/20/2021 8:01 PM EDT) Narrative STELLA - 10/20/2021 8:01 PM EDT This exam is auto-finalizing. It's purpose is for storage only. Juan Dempsey MD IMG FILM LIBRARY ORD ERABLES [place], [place] documented in this encounter Visit Diagnoses Not on filedocumented in this encounter Care Teams Breakfast Cook Relationship Specialty Start Date End Date Juan Dempsey MD [address] [place] [address] PCP - General Emergency Medicine 08/20/21 documented as of this encounter
--- OUTSIDE RECORDS SUMMARY | 2024-02-03 16:57 | XMS_ITS | Encounter Summary ---
Author Organization [facility] Address [facility] [place] [address] Care Team Providers Care Assistant Men'S Lacrosse Coach Name Role Phone Juan Dempsey MD Primary Care Provider [phone] Encounter Details Date Type Department Care Team (Latest Contact Info) Description 11/26/2021 9:05 AM EDT - 11/26/2021 11:59 PM EDT Hospital Encounter [place] [phone] Drug-induced hepatitis; Autoimmune hepatitis; Renal cell carcinoma, unspecified laterality; [...] [facility] Hematology Oncology [address] [place] [address] 02/16/2024 10:20 AM EDT Hospital [place] [address] Mitali Griffiths APRN [facility] [place] [address] 02/16/2024 1:30 PM EDT Office Visit [place] [phone] Albino Bartholomew MD [facility] [place] [address] 04/17/2024 10:00 AM EST Office Visit Dermatology at [facility] [address] [place] [address] Oli Winter MD [address] [facility] [place] [address] Scheduled Orders Name Type Priority Associated Diagnoses Orde r Schedule Comprehensive metabolic panel (non-fasting) Lab Routine Renal cell carcinoma, unspecified laterality 1 Occurrences starting 11/26/2021 until 11/26/2021 CBC (with Diff) Lab Routine Renal cell carcinoma, unspecified laterality 1 Occurrences starting 11/26/2021 until 11/26/2021 documented as of this encounter Procedures Procedure Name Priority Date/Time Associated Diagnosis Comments BILIRUBIN, DIRECT Routine 11/26/2021 9:1 3 AM EDT HEMOGRAM Routine 11/26/2021 9:13 AM EDT Renal cell carcinoma, unspecified laterality Elevated LFTs DIFFERENTIAL, AUTOMATED Routine 11/26/2021 9:13 AM EDT Renal cell carcinoma, unspecified laterality Elevated LFTs HC PCH SMOOTH MUSCLE AB, SERUM Routine 11/26/2021 9:13 AM EDT Drug-induced hepatitis Autoimmune hepatitis HC CBC,PLT & AUTO DIFF Routine 9:13 AM EDT Renal cell carcinoma, unspecified laterality Elevated LFTs HC IGG, SERUM Routine 11/26/2021 9:13 AM EDT Drug-induced hepatitis Autoimmune hepatitis COMPREHENSIVE METABOLIC PANEL Routine 11/26/2021 9:13 AM EDT Renal cell carcinoma, unspecified laterality Elevated LFTs documented in this encounter Results * Bilirubin, Direct (11/26/2021 9:13 AM EDT) Bilirubin, Direct 0.1 0.0 - 0.3 mg/dL [facility] Blood 11/26/2021 9:13 AM EDT 11/26/2021 9:24 AM EDT Narrative Resulting Agency Comment Spec In Lab Ana Pringle MD CHEMISTRY ORDERABLES [facility] [place] [address] * (ABNORMAL) Differential, Automated (11/26/2021 9:13 AM EDT) Neutrophil % 78.4 % [facility] Neutrophil Absolute 6.67(H) 1.70 - 6.10 x10(3)/mc L [facility] Lymph % 15.3 % [facility] Lymphocytes Abs 1.3 0.9 - 3.2 x10(3)/mc L [facility] Monocyte % 2.6 % [facility] Monocyte Abs 0.2(L) 0.3 - 0.9 x10(3)/mc L [facility] Eos % 1.9 % [facility] Eosinophils Abs 0.2 0.0 - 0.4 x10(3)/mc L [facility] Basophil % 1.1 % [facility] Baso Absolute 0.1 0.0 - 0.1 x10(3)/mc L [facility] Immature Gran % 0.70 % [facility] Comment: Immature granulocytes(IG's)percentage and absolute count will include metamyelocytes, myelocytes, and promyelocytes. Blood smears from CBCs yielding IG's will be scanned manually for concordance. If this scan disagrees with the automated IG or if promyelocytes are noted, a manual differential will be performed. Immature Gran Absolute 0.06(H) 0.00 - 0.04 x10(3)/mc L [facility] Blood 11/26/2021 9:13 AM EDT 11/26/2021 9:24 AM EDT Narrative Resulting Agency Comment Spec In Lab Kelin Carlos TOOL PROFILING MACHINE SET UP OPERATOR HEMATOLOGY ORDERAB LES [facility] [place] [address] * (ABNORMAL) Hemogram (11/26/2021 9:13 AM EDT) White Blood Cell 8.5 4.0 - 9.5 x10(3)/mc L [facility] Red Blood Cell 5.07 4.58 - 5.54 x10(6)/mc L [facility] Hemoglobin 14.6 13.7 - 16.5 g/dL [facility] Hematocrit 45.9 40.5 - 48.5 % [facility] Mean Cell Volume 90.5 82.9 - 93.1 fL [facility] Mean Cell Hemoglobin 28.8 27.5 - 32.1 pg [facility] Mean Cell Hemoglobin Concentration 31.8(L) 32.0 - 35.7 g/dL [facility] Platelet 213 145 - 357 x10(3)/mc L [facility] RDW Standard Deviation 51.2(H) 36.0 - 45.0 fL [facility] RDW coefficient of variation 15.5(H) 11.4 - 13.8 % [facility] Mean Platelet Volume 9.4 7.6 - 12.9 fL [facility] NRBC% auto 0.0 % [facility] NRBC Absolute 0.000 0.000 - 0.000 x10(3)/mc L [facility] Blood 11/26/2021 9:13 AM EDT 11/26/2021 9:24 AM EDT Narrative Resulting Agency Comment Spec In Lab Kelin Carlos TOOL PROFILING MACHINE SET UP OPERATOR HEMATOLOGY ORDERAB LES [facility] [place] [address] * (ABNORMAL) Comprehensive metabolic panel (non-fasting) (11/26/2021 9:13 AM EDT) Glucose 184 65 - 199 mg/dL [facility] Comment:Diabetes: >=200 mg/d L plus symptoms Blood Urea Nitrogen 25(H) 10 - 20 mg/dL [facility] Creatinine 1.37 0.80 - 1.50 mg/dL [facility] Sodium 141 135 - 145 mmol/L [facility] Potassium 3.6 3.5 - 5.0 mmol/L [facility] Comment: Please note: ??Patients with WBC >100,000 may have falsely elevated Potassium levels. ??For accurate Potassium quantification in these patients send serum separator tube (gold top) for subsequent determinations. ??Contact the Clinical Chemistry Laboratory if there are any questions. Chloride 104 98 - 107 mmol/L [facility] Carbon Dioxide 28 22 - 31 mmol/L [facility] Anion Gap 9 5 - 15 mmol/L [facility] Calcium 9.3 8.5 - 10.5 mg/dL [facility] Protein, Total 6.5 6.1 - 8.0 g/dL [facility] Albumin 4.2 3.2 - 5.2 g/dL [facility] Aspartate Aminotransferase 17 0 - 39 unit/L [facility] Alanine Aminotransferase 28 0 - 55 unit/L [facility] Alkaline Phosphatase 95 40 - 130 unit/L [facility] Bilirubin, Total 0.5 0.2 - 1.3 mg/dL [facility] Est Glomerular Filtration Rate 57(L) >=60 mL/min/1. 73 m?? [facility] Comment: This patient's estimated GFR [...] APRN CHEMISTRY ORDERABL ES Performing Organization Address [facility] Co de Phone Number [facility] [place] [address] * IgG (11/26/2021 9:13 AM EDT) Immunoglobulin G 992 700 - 1,600 mg/dL [facility] Comment: Pediatric Reference Intervals obtained from the Caliper Reference Interval project. http://www.sickGrandCamp.ca/caliperproject/index.html Blood 11/26/2021 9:13 AM EDT 11/26/2021 9:24 AM EDT Narrative Resulting Agency Comment Spec In Lab Ana Pringle MD CHEMISTRY ORDERABLES Performing Organization Address [facility]/ZIP Co de Phone Number [facility] [place] [address] * Smooth Muscle Antibody (11/26/2021 9:13 AM EDT) Sm Muscle Ab (MAY) Negative Negative M [facility] Comment: Negative: No further testing will be performed ADDITIONAL INFORMATION This test was developed and its performance characteristics determined by [facility] in a manner consistent with CLIA requirements. This test has not been cleared or approved by the U.S. Food and Drug Administration. Test Performed by: [facility] [address] [place] [address] Health And Safety Inspector: Dominick Jara M.D. Ph.D.; CLIA# [id number] Blood 11/26/2021 9:13 AM EDT 11/26/2021 1:12 PM EDT Narrative Resulting Agency Comment Spec In Lab Ana Pringle MD LAB SEND OUT ORDERAB LES [facility] [place] [address] documented in this encounter Visit Diagnoses Diagnosis Drug-induced hepatitis Hepatitis, unspecified Autoimmune hepatitis Renal cell carcinoma, unspecified laterality Elevated LFTs Other abnormal blood chemistry documented in this encounter Care Teams Assistant Men'S Lacrosse Coach Relationship Specialty Start Date End Date Juan Dempsey MD [address] [place] [address] PCP - General Emergency Medicine 08/20/21 documented as of this encounter
--- OUTSIDE RECORDS SUMMARY | 2024-02-03 16:57 | XMS_ITS | Encounter Summary ---
Author Organization [facility] [place] [address] Care Team Providers Care Mixed Crop And Livestock Farmer Name Role Phone Juan Dempsey MD Primary Care Provider [phone] Encounter Details Date Type Department Care Team (Latest Contact Info) Description 10/16/2021 12:15 PM EDT Laboratory Appointment Lab [address] [place] [address] Renal cell carcinoma, unspecified laterality Social History [...] EDT Laboratory Appointment Lab [place] [facility] [place] On[place] [address] [place] [address] 02/16/2024 10:20 AM EDT Hospital [place] [phone] Mitali Griffiths APRN [facility] [place] [address] 02/16/2024 1:30 PM EDT Office Visit Hematology [place] [address] Albino Bartholomew MD [facility] [place] [address] 04/17/2024 10:00 AM EST Office Visit Dermatology at [facility] [address] [place] [address] Oli Winter MD [address] [facility] [place] [address] documented as of this encounter Procedures Procedure Name Priority Date/Time Associated Diagnosis Comments HC VENIPUNCTURE STAT 10/16/2021 12:08 PM EDT Renal cell carcinoma, unspecified laterality documented in this encounter Results * (ABNORMAL) Basic Metabolic Panel (non-fasting) (10/16/2021 12:08 PM EDT) Glucose 128 65 - 199 mg/dL [facility] Comment:Diabetes: >=200 mg/d L plus symptoms Blood Urea Nitrogen 25(H) 10 - 20 mg/dL [facility] Creatinine 1.62(H) 0.80 - 1.50 mg/dL [facility] Sodium 136 135 - 145 mmol/L [facility] Potassium 4.7 3.5 - 5.0 mmol/L [facility] Comment: Please note: ??Patients with WBC >100,000 may have falsely elevated Potassium levels. ??For accurate Potassium quantification in these patients send serum separator tube (gold top) for subsequent determinations. ??Contact the Clinical Chemistry Laboratory if there are any questions. Chloride 101 98 - 107 mmol/L [facility] Carbon Dioxide 25 22 - 31 mmol/L [facility] Anion Gap 10 5 - 15 mmol/L [facility] Calcium 8.7 8.5 - 10.5 mg/dL [facility] Est Glomerular Filtration Rate 47(L) >=60 mL/min/1. 73 m?? [facility] Lab Jordan Hou MD CHEMISTRY ORDERABL ES [facility] [place] [address] documented in this encounter Visit Diagnoses Diagnosis Renal cell carcinoma, unspecified laterality documented in this encounter Care Teams Mixed Crop And Livestock Farmer Relationship Specialty Start Date End Date Juan Dempsey MD [address] [place] [address] PCP - General Emergency Medicine 08/20/21 documented as of this encounter
--- OUTSIDE RECORDS SUMMARY | 2024-02-03 16:57 | XMS_ITS | Encounter Summary ---
Author Organization [facility] Address [facility] [place] [address] Care Team Providers Care Asbestos Remover Name Role Phone Juan Dempsey MD Primary Care Provider [phone] Encounter Details Date Type Department Care Team (Late st Contact Info) Description 11/04/2021 External Results Hematology [place] [phone] Gilson Tobar RN Social History Tobacco Use Types Packs/Day [...] [facility] Hematology Oncology [address] [place] [address] 02/16/2024 10:20 AM EDT Hospital [place] [phone] Mitali Griffiths APRN [facility] DR [place] [address] 02/16/2024 1:30 PM EDT Office Visit Hematology [place] [phone] Albino Bartholomew MD [facility] [place] [address] 04/17/2024 10:00 AM EST Office Visit Dermatology at [facility] [address] [place] [address] Oli Winter MD [address] [facility] [place] [address] documented as of this encounter Procedures Procedure Name Priority Date/Time Associated Diagnosis Comments EXTERNAL LAB CBC CMP THYROID RESULTS PANEL Routine 11/04/2021 documented in this encounter Results * (ABNORMAL) CBC / CMP / Thyroid External Results (11/04/2021) Sodium 141 [facility] Potassium 3.7 [facility] Chloride 105 [facility] Carbon Dioxide 29 [facility] Blood Urea Nitrogen 28(H) [facility] Creatinine 1.4(H) [facility] Est Glomerular Filtration Rate 50.70 [facility] Glucose 156(H) [facility] Calcium 8.7 [facility] Protein, Total 6.3(L) [facility] Albumin 3.0 [facility] Bilirubin, Total 0.6 [facility] Alkaline Phosphatase 90 [facility] Aspartate Aminotransferase 27 [facility] Alanine Aminotransferase 80(H) [facility] 11/04/2021 Historical Provider MD EXTERNAL LAB SUNITHA SERRANO Performing Organization Address City/State/[facility] Co de Phone Number [facility] [address] [place], [place] [address] [phone] documented in this encounter Visit Diagnoses Not on filedocumented in this encounter Care Teams Asbestos Remover Relationship Specialty Start Date End Date Juan Dempsey MD [address] [place], [place] [address] PCP - General Emergency Medicine 08/20/21 documented as of this encounter
--- OUTSIDE RECORDS SUMMARY | 2024-02-03 16:58 | XMS_ITS | Encounter Summary ---
Author Organization [facility] Address [facility] [place] [address] Care Team Providers Care It Security Architect Name Role Phone Lisbet Solitario MD Primary Care Provider [phone] Reason for Referral * Consultation (Routine) - Closed Specialty Diagnoses / Procedures Referred By Burak mcnair Referred To Contact Hematology and Oncology Diagnoses Renal cell carcinoma, unspecified laterality Jordan Hou MD [facility] [place] [address] [facility] Hem Onc [address] [place] [address] Referral ID Status Reason Start Date Expiration Date V isits Requested Visits Authorized [id number] Closed Consult, Test & Treat 07/07/2021 07/07/2022 1 1 Reason for Visit * Reason Comments Kidney Cancer Follow-up Encounter Details Date Type Department Care Team (Late st Contact Info) Description 07/07/2021 10:00 AM EST Office [place] [phone] Jordan Hou MD [facility] [place] [address] Renal cell carcinoma, unspecified laterality Social History Tobacco Use Types Packs/Day Years Used Date Smoking Tobacco: Never Smokeless Tobacco: Never Alcohol Use Standard Drinks/Week Comments Never 0 (1 standard drink = 0.6 oz pur e alcohol) Sex and Gender Information Value Date Recorded Sex Assigned at Male 05/23/2021 10:26 AM EST Gender Identity Not on file Sexual Orientation Not on file documented as of this encounter Last Filed Vital Signs Vital Sign Reading Time Taken Comments Blood Pressure 183/92 07/07/2021 10:08 AM EST Pulse 74 07/07/2021 10:08 AM EST Temperature - - Respiratory Rate - - Oxygen Saturation - - Inhaled Oxygen Concentration - - Weight - - Height - - Body Mass Index - - documented in this encounter Progress Notes * Larry Cornell MD - 07/07/2021 10:00 AM EST UROLOGY POST OP FOLLOWUP 66 yo male referred to me for a newly diagnosed left renal mass, s/p nephrectomy, pathology pT3aN1 clear cell. Following surgery, he reports he is healing well. He has some questions regarding colonoscopy He is scheduled for a colonoscopy in the next several months. Past Medical History: Diagnosis Date ??? Claudication lower left leg , due to achilles surgery 2000 ??? High blood pressure losartan 100mg ??? Hyperlipidemia atorvastatin 20mg Past Surgical History: Procedure Laterality Date ??? ACHILLES TENDON SURGERY ??? HERNIA REPAIR Left inguinal ??? PRO CYSTOURETHROSCOPY N/A 06/23/2021 CYSTO, CYSTOURETHROSCOPY, DIAGNOSTIC (WRVU 2.23) performed by Jordan Hou MD at [facility] MAIN OR ??? PRO REMV KIDNEY, RADICAL Left 06/23/2021 @NEPHRECTOMY, RADICAL W\REG LYMPHADENECTOMY &\OR VENA CAVA THROMBECTOMY (WRVU 23.81) performed by Jordan Hou MD at [facility] MAIN OR Social History Socioeconomic History [...] Social Determinants of Health Financial Resource Strain: Not on file Food Insecurity: Not on file Transportation Needs: Not on file Physical Activity: Not on file Housing Stability: Not on file Family History Problem Relation Age of Onset ??? Lymphoma Mother ??? Breast Cancer Mother ??? 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 Healthy appearance. ABDOMEN:Left sided incision healing quite well NEUROLOGIC: Alert and oriented x 3. EXTREMITIES: Warm and well perfused with no pitting edema. LABS: Last 3 Lytes Recent Labs 06/27/21 0134 06/26/21 0131 06/25/21 0141 NA 140 138 137 K 3.7 4.0 4.5 CL 106 108* 107 CO2 27 23 23 BUN 19 18 21* CREATININE 1.22 1.11 1.32 IMAGING: No new imaging. ASSESSMENT/PLAN: #1 CCRCC s/p nephrectomy - pT3aN1, grade 4, healing well from a surgical perspective. We will have him see medical oncology to discuss immunotherapy. Additionally, he has a lung nodule that was too small to biopsy or characterize further, which will need to be followed. Discussed that he should defer routine colonoscopy for 2-3 months, however, urgent colonoscopy can be done now. He reports that he had some blood on cologaurd.He should speak with his PCP for a referral to [facility] for colonoscopy, as well as further management of his hypertension. We will have him follow up with us in [address] chest, abdomen and pelvis. Med Onc, may want sooner imaging. #2 Umbilical hernia - present prior to surgery for 10 years, discussed incarceration or strangulation. Recommended he allow his incision to heal for several months before addressing his umbilical hernia. * Jordan Hou MD - 07/07/2021 10:00 AM EST I have seen the patient and reviewed the resident's above history and I agree with the details as written. The assessment and plan were formulated in discussion with me and I agree with them as documented. documented in this encounter Plan of Treatment Upcoming Encounters Date Type Department Care Team (Late st Contact Info) Description 02/16/2024 9:15 AM EDT Laboratory Appointment Lab at [facility] Hematology Oncology [address] [place] [address] 02/16/2024 10:20 AM EDT Hospital Encounter CT Scan at [place] [phone] Mitali Griffiths APRN [facility] [place] [address] 02/16/2024 1:30 PM EDT Office Visit Hematology and Oncology at [place] [phone] Albino Bartholomew MD [facility] [place] [address] 04/17/2024 10:00 AM EST Office Visit Dermatology at [facility] [address] [place] [address] Oli Winter MD [address] [facility] [place] [address] Scheduled Referrals Name Type Priority Associated Diagnoses Order Schedule Referral to Genitourinary Oncology Outpatient Referral Routine Renal cell carcinoma, unspecified laterality Ordered: 07/07/2021 documented as of this encounter Visit Diagnoses Diagnosis Renal cell carcinoma, unspecified laterality documented in this encounter Care Teams It Security Architect Relationship Specialty Start Date End Date Lisbet Solitario MD [address] [place] [address] PCP - General Family Medicine 01/30/16 08/19/21 documented as of this encounter
--- OUTSIDE RECORDS SUMMARY | 2024-02-03 16:58 | XMS_ITS | Encounter Summary ---
Author Organization [facility] [place] [address] Care Team Providers Care Steel Pourer Helper Name Role Phone Lisbet Solitario MD Primary Care Provider [phone] Reason for Visit * Treatment/Therapy Plan Authorization (Routine) - Closed Specialty Diagnoses / Procedures Referred By Burak t Referred To Contact Hematology and Oncology Diagnoses Renal cell carcinoma, unspecified laterality Medication management Procedures [id number] (PEMBROLIZUMAB) Albino Bartholomew MD [facility] DR HEMATOLOGY [place] [address] [facility] Hem Onc [address] [place] [address] Referral ID Status Reason Start Date Expiration Date Visits Re quested Visits Authorized [id number] Closed 07/30/2021 11/29/2021 99 99 Encounter Details Date Type Department Care Team (Latest Contact Info) Description 08/07/2021 9:01 AM EDT - 08/07/2021 11:59 PM EDT Hospital Encounter [place] [address] Renal cell carcinoma, unspecified laterality; Medication management [...] Sig Dispensed Refills Start Date End Date diphenhydrAMINE (Benadryl) 25 mg Capsule Take 25 mg by mouth every 6 hours as needed for Itching. For seasonal allergies acetaminophen (Tylenol) 325 mg Tablet Take 2-3 tablets by mouth every 6 hours as needed for Pain. 06/27/2021 losartan (COZAAR) 100 mg Tablet Take 100 mg by mouth daily. 04/11/2019 amLODIPine (Norvasc) 5 mg Tablet Take 5 mg by mouth daily. 10mg 09/17/2021 atorvastatin (LIPITOR) 20 mg Tablet Take 20 mg by mouth daily. Currently not taking 02/11/2018 03/19/2022 documented as of this encounter Progress Notes * Msater Worthington RN - 08/07/2021 1:05 PM EDT Patient Name: Cristofer Tenorio Patient Age: 66 y.o. Birthdate: 1955 Admit date: 08/07/2021 Attending Physician: No att. providers found Cristofer Tenorio, 66 y.o. male with diagnosis of renal cell carcinoma is here for infusion of pembrolizumab. S: Pt. offers no complaints at this time. Reviewed plan of care for infusion visit, patient verbalized understanding of plan as outlined. O: Orders independently verified for correct drug name, route, and dosage per patient's therapy plan by Master Worthington RN, and onsite pharmacist. Medications administered per protocol. REACTIONS (DESCRIPTION, TIME, INTERVENTION AND EFFECTIVENESS) none A: Pt. Tolerated treatment with out issue. Cristofer Tenorio confirms that all questions and issues have been addressed. P: Return to clinic as scheduled. CALL IF YOU EXPERIENCE ?? Fever of 38 C /100.4 F or higher (do not take medicine to lower your temperature unless your care Team tells you it is OK) ?? Shaking chills with or without fever ?? Difficulty breathing-different from your normal breathing ?? New or uncontrolled pain anywhere ?? Inability to keep fluids down ?? Bleeding ?? Chest pain or palpitations ?? Fluttering in the chest (may feel like butterflies) ?? Swelling of the legs, arm or face ?? Sudden change in vision ?? Seizure ?? Changes in your bowel pattern, with or without abdominal pain (more than 3 loose stools per day,or no stool for 2 days) ?? Sudden changes in your ability to speak CALL IF YOU EXPERIENCE PROBLEM WITH YOUR CATHETER ?? Redness, swelling, discharge or pain at the IV catheter or Mediport site, or leaking around the catheter ?? Catheter has been pulled out ?? Difficulty flushing catheter This list includes many but not all of the most urgent symptoms you might experience. Call your Care Team RIGHT AWAY if you experience any of these as a new symptom. Always call if you have serious concerns about any symptom. [facility] # [phone] and ask for the oncologist or event marketing representative on-call documented in this encounter Plan of Treatment Upcoming Encounters Date Type Department Care Team (Late st Contact Info) Description 02/16/2024 9:15 AM EDT Laboratory Appointment Lab at [facility] Hematology Oncology [address] [place] [id number] 02/16/2024 10:20 AM EDT [place] [address] Mitali Griffiths APRN [facility] DR HEMATOLOGY [place] [address] 02/16/2024 1:30 PM EDT Office Visit [place] [address] Albino Bartholomew MD [facility] DR HEMATOLOGY AND ONCOLOGY [place], [place] [phone] 04/17/2024 10:00 AM EST Office Visit Dermatology at [facility] [address] [place] [phone] Oli Winter MD [address] [facility] [address] documented as of this encounter Results * T4, free (08/07/2021 9:11 AM EDT) Pathologist [facility] Free T4 1.32 0.93 - 1.70 ng/dL [facility] Comment: Reference Interval (ng/dL): Females: ??First Trimester: 0.97-1.68 ??Second Trimester: 0.77-1.51 ??Third Trimester: 0.77-1.49 Blood 08/07/2021 9:11 AM EDT 08/07/2021 9:33 AM EDT Narrative Resulting Agency Comment Spec In Lab Albino Bartholomew MD CHEMISTRY ORDERABLES Performing Organization Address [facility] Co de Phone Number [facility] [place] [address] * (ABNORMAL) TSH (08/07/2021 9:11 AM EDT) Thyroid Stimulating Hormone 5.28(H) 0.27 - 4.20 mcIU/mL [facility] Comment: Reference Interval (mcIU/mL): Females: ??First Trimester: 0.23-3.88 ??Second Trimester: 0.22-3.90 ??Third Trimester: 0.44-4.66 Blood 08/07/2021 9:11 AM EDT 08/07/2021 9:33 AM EDT Narrative Resulting Agency Comment Spec In Lab Albino Bartholomew MD CHEMISTRY ORDERABLES Performing Organization Address [facility] Co de Phone Number [facility] [place] [place] [address] * (ABNORMAL) Comprehensive metabolic panel (non-fasting) (08/07/2021 9:11 AM EDT) [facility] Glucose 124 65 - 199 mg/dL [facility] Comment:Diabetes: >=200 mg/d L plus symptoms Blood Urea Nitrogen 24(H) 10 - 20 mg/dL [facility] Creatinine 1.28 0.80 - 1.50 mg/dL [facility] Sodium 140 135 - 145 mmol/L [facility] Potassium 4.0 3.5 - 5.0 mmol/L [facility] Comment: Please note: ??Patients with WBC >100,000 may have falsely elevated Potassium levels. ??For accurate Potassium quantification in these patients send serum separator tube (gold top) for subsequent determinations. ??Contact the Clinical Chemistry Laboratory if there are any questions. Chloride 104 98 - 107 mmol/L [facility] Carbon Dioxide 26 22 - 31 mmol/L [facility] Anion Gap 10 5 - 15 mmol/L [facility] Calcium 9.7 8.5 - 10.5 mg/dL [facility] Protein, Total 7.8 6.1 - 8.0 g/dL [facility] Albumin 4.4 3.2 - 5.2 g/dL [facility] Aspartate Aminotransferase 23 0 - 39 unit/L [facility] Alanine Aminotransferase 49 0 - 55 unit/L [facility] Alkaline Phosphatase 153(H) 40 - 130 unit/L [facility] Bilirubin, Total 0.3 0.2 - 1.3 mg/dL [facility] Est Glomerular Filtration Rate 58(L) >=60 mL/min/1. 73 m?? [facility] Comment: This patient? s estimated glomerular filtration rate (eGFR) is between 58 mL/min/1.73 m2 (patients with less muscle mass per kg body weight) and 67 mL/min/1.73 m2 (patients with more muscle mass [...] and symptoms in addition to eGFR. Blood 08/07/2021 9:11 AM EDT 08/07/2021 9:33 AM EDT Narrative Resulting Agency Comment Spec In Lab Albino Bartholomew MD CHEMISTRY ORDERABLES [facility] [place] [address] documented in this encounter Visit Diagnoses Diagnosis Renal cell carcinoma, unspecified laterality Medication management Encounter for long-term (current) use of other medications documented in this encounter Administered Medications Inactive Administered Medications - up to 3 most recent administrations Medication Order MAR Action Action Date Dose Rate Site pembrolizumab (Keytruda) 200 mg in sodium chloride 0.9% 108 mL infusion 200 mg, Intravenous, ONCE, 1 dose, On Yuliet 08/07/21 at 1330, Administer over 30 Minutes, Flush line with NS after each dose., This agent is restricted to outpatient use. Is this drug being given as an outpatient? Yes New Bag 08/07/2021 1:33 PM EDT 200 mg 216 mL/hr documented in this encounter Care Teams Steel Pourer Helper Relationship Specialty Start Date End Date Lisebt Solitario MD [address] [place] [address] PCP - General Family Medicine 01/30/16 08/19/21 documented as of this encounter
--- OUTSIDE RECORDS SUMMARY | 2024-02-03 16:58 | XMS_ITS | Encounter Summary ---
Author Organization [facility] Address [facility] [place] [address] Care Team Providers Care Oil Refinery Operator Name Role Phone Lisbet Solitario MD Primary Care Provider [phone] Encounter Details Date Type Department Care Team (Late st Contact Info) Description 08/11/2021 Telephone [place]ematology [place] [address] Mary Collazo, RN Social History Tobacco Use Types Packs/Day [...] Miscellaneous Notes * Telephone Encounter - Mary Collazo RN - 08/11/2021 7:34 AM EDT Request from provider: would you mind giving him a call next week to check in post-treatment? Immunotherapy Follow-up Call Placed call to patient to assess tolerance of first time immunotherapy treatment. Regimen received: Pembro Date of treatment: 08/07/2021 Assessment: Symptom Present (yes[y]/no[n]/ stable[s] from baseline) Additional information/Assessment GI Nausea Denies Vomiting Denies Nausea medication No Tolerating diet Yes Maintaining fluid intake (indicate volume) Yes Bowel movements regular Yes Diarrhea Denies Mouth sores Denies General Pain (0 none - 10 high) No c/o pain or discomfort Using pain medications No Fever Afebrile Neuro Level of fatigue (0 - 5) Denies Falls Numbness/tingling in arms/legs Denies Cognitive changes A/O x 3 Skin Skin changes Slight rash on right arm & has a little itching on arms & abdomen. Itching notbothersome at all. Putting Gold Valdez on skin to soothe it. Pinpoint red dots Denies Other s/s of bleeding No unusual bruising or bleeding IV site/VAD problems Musculoskeletal Joint swelling or tenderness Denies Arthralgias or myalgias Denies Voiding problems Voiding without difficulty Color and quality of urine Clear Cardio-pulmonary Shortness of breath Denies Chest pain Denies Swelling in legs Denies Calf pain or tenderness Denies Cough (productive/non-productive) Denies Psychosocial Coping Need prescription renewals Other issues : Education provided: Plan: 1. Reinforced to patient/care-animal caregiver to call facility 23/11 with any new/worsening signs and symptomsor concerns or questions. Phone number provided. Pt verbalized understanding and is in agreement with plan. documented in this encounter Plan of Treatment Upcoming Encounters Date Type Department Care Team (Late st Contact Info) Description 02/16/2024 9:15 AM EDT Laboratory Appointment Lab at [facility] Hematology Oncology [address] [place] [address] 02/16/2024 10:20 AM EDT Hospital [place] [phone] Mitali Griffiths APRN [facility] DR HEMATOLOGY [place] [address] 02/16/2024 1:30 PM EDT Office Visit Hematology [place] [address] Albino Bartholomew MD [facility] DR HEMATOLOGY [place] [address] 04/17/2024 10:00 AM EST Office Visit Dermatology at [facility] [address] [place] [address] Oli Winter MD [address] [facility] [place] [address] documented as of this encounter Visit Diagnoses Not on filedocumented in this encounter Care Teams Oil Refinery Operator Relationship Specialty Start Date End Date Lisbet Solitario MD [address] [place] [address] PCP - General Family Medicine 01/30/16 08/19/21 documented as of this encounter
--- OUTSIDE RECORDS SUMMARY | 2024-02-03 16:58 | XMS_ITS | Encounter Summary ---
Author Organization [facility] Address [facility] [place] [address] Care Team Providers Care Manager Private Name Role Phone Juan Dempsey MD Primary Care Provider Encounter Details Date Type Department Care Team (Late st Contact Info) Description 09/18/2021 Orders Only [place]ematology [place] [phone] Kelin Carlos APRN [facility] HEMATOLOGY [place] [address] Renal cell carcinoma, unspecified laterality; Elevated LFTs Social History Tobacco Use Types [...] [facility] Hematology Oncology [address] [place] [address] 02/16/2024 10:20 AM EDT Hospital [place] [phone] Mitali Griffiths APRN [facility] DR [place] [address] 02/16/2024 1:30 PM EDT Office Visit Hematology [place] [phone] Albino Bartholomew MD [facility] DR HEMATOLOGY [place] [address] 04/17/2024 10:00 AM EST Office Visit Dermatology at [facility] [address] [address] Oli Winter MD [address] [place] [address] documented as of this encounter Visit Diagnoses Diagnosis Renal cell carcinoma, unspecified laterality Elevated LFTs Other abnormal blood chemistry documented in this encounter Care Teams Manager Private Relationship Specialty Start Date End Date Juan Dempsey MD [address] [place] [id number] PCP - General Emergency Medicine 08/20/21 documented as of this encounter
--- OUTSIDE RECORDS SUMMARY | 2024-02-03 16:58 | XMS_ITS | Encounter Summary ---
Author Organization [facility] Address [facility] [place] [address] Care Team Providers Care Food Porter Name Role Phone Juan Dempsey MD Primary Care Provider [phone] Encounter Details Date Type Department Care Team (Late st Contact Info) Description 09/11/2021 External Results Hematology [place] [phone] Galina Coello Social History Tobacco Use Types Packs/Day Years [...] [facility] Hematology Oncology [address] [place] [address] 02/16/2024 10:20 AM EDT Hospital [place] [phone] Mitali Griffiths APRN [facility] DR HEMATOLOGY [place] [address] 02/16/2024 1:30 PM EDT Office Visit Hematology [place] [phone] Albino Bartholomew MD [facility] [address] [place] [address] 04/17/2024 10:00 AM EST Office Visit Dermatology at [facility] [address] [place] [phone] Oli Winter MD [address] [facility] [place] [address] documented as of this encounter Procedures Procedure Name Priority Date/Time Associated Diagnosis Comments COMPREHENSIVE METABOLIC PANEL Routine 09/10/2021 12:50 PM EDT documented in this encounter Results * (ABNORMAL) Comprehensive metabolic panel (non-fasting) (09/10/2021 12:50 PM EDT) Glucose 153(A) EXTERNAL LAB Blood Urea Nitrogen 31(A) EXTERNAL LAB Creatinine 1.5(A) EXTERNAL LAB Est Glomerular Filtration Rate 46.82(A) EXTERNAL LAB Sodium 136 EXTERNAL LAB Potassium 4.5 EXTERNAL LAB Chloride 102 EXTERNAL LAB Carbon Dioxide 29 EXTERNAL LAB Calcium 8.1(A) EXTERNAL LAB Protein, Total 6.8 EXTERNAL LAB Albumin 3.3(A) EXTERNAL LAB Bilirubin, Total 0.5 EXTERNAL LAB Alkaline Phosphatase 116 EXTERNAL LA B Aspartate Aminotransferase 30 EXTERNAL LAB Alanine Aminotransferase 153(A) EXTERNAL LAB Blood 09/10/2021 12:5 0 PM EDT Historical Provider CHEMISTRY ORDERAB LES EXTERNAL LAB documented in this encounter Visit Diagnoses Not on filedocumented in this encounter Care Teams Food Porter Relationship Specialty Start Date End Date Juan Dempsey MD [address] [place] [address] PCP - General Emergency Medicine 08/20/21 documented as of this encounter
--- OUTSIDE RECORDS SUMMARY | 2024-02-03 16:58 | XMS_ITS | Encounter Summary ---
Author Organization [facility] Address [facility] [place] [address] Care Team Providers Care Varnisher Plasticoater Name Role Phone Juan Dempsey MD Primary Care Provider [phone] Encounter Details Date Type Department Care Team (Late st Contact Info) Description 09/17/2021 1:30 PM EDT Office Visit Hematology [place] [phone] Albino Bartholomew MD [facility] [address] [place] [address] Kelin Carlos APRN [facility] [address] HEMATOLOGY [place] [address] Sara Loza MD [facility] [address] HEMATOLOGY [place] [address] Renal cell carcinoma, unspecified laterality; Elevated LFTs; Medication management Social History Tobacco Use Types Packs/Day Years [...] Sign Reading Time Taken Comments Blood Pressure 164/56 09/17/2021 1:26 PM EDT Pulse 76 09/17/2021 1:26 PM EDT Temperature - - Respiratory Rate 18 09/17/2021 1:26 PM EDT Oxygen Saturation - - Inhaled Oxygen Concentration - - Weight 100.2 kg (220 lb 12.8 oz) 09/17/2021 1:26 PM EDT Height 181 cm (5' 11.26) 09/17/2021 1:26 PM EDT Body Mass Index 30.57 09/17/2021 1:26 PM EDT documented in this encounter Progress Notes * Sara Loza MD - 09/17/2021 1:30 PM EDT Images from the original note were not included. [facility] Oncology - Follow Up Visit History of [...] symptoms. Interval History: Raymundo returns for f/u and consideration of pembrolizumab resumption. Accompanied by Emily. Overall, feeling well. 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 Prednisone 100mg 08/27-08/29 Prednisone 80 mg/day x 3 days (08/30-09/01) Prednisone 60 mg/day x 3 days (09/02-09/04) Prednisone 40 mg po 09/05-09/07 Prednisone 20 mg po 09/08-09/10 Prednisone 10 mg po 09/11-09/13 He's been off statin since the end of the August. Over the last couple of weeks, he states he's felt well. Energy level is good. Appetite is very good, gained 3 lbs. Sleeping well does have nocturia. No blood in urine. No urinary symptoms. No joint pain, rashes (other than his chronic skin irritation), diarrhea. He did notice an improvement in his chronic dermatitis with the use of prednisone. He's had a lump on his left inner thigh since before starting his treatment for RCC. He states he's had it for years and waxes and wanes over time. For the past week, he's noticed increased soreness involving the area (he has been walking more and notices it more after he drives a lot). Patient Active Problem List Diagnosis Code ??? Renal mass N28.89 ??? Renal cell carcinoma C64.9 ??? Medication management Z79.899 PMH, PSH, and current medications reviewed, as documented in the electronic medical record. Current Outpatient Medications on File Prior to Visit Medication Sig Dispense Refill ??? amLODIPine (Norvasc) 10 mg Tablet TAKE ONE TABLET BY MOUTH EVERY DAY FOR BLOOD PRESSURE ??? losartan (COZAAR) 100 mg Tablet Take 100 mg by mouth daily. ??? [DISCONTINUED] predniSONE (Deltasone) 20 mg Tablet Take 5 tablets by mouth daily. Take in the morning with food 50 tablet 0 ??? diphenhydrAMINE (Benadryl) 25 mg Capsule Take 25 mg by mouth every 6 hours as needed for Itching. For seasonal allergies ??? [DISCONTINUED] amLODIPine (Norvasc) 5 mg Tablet Take 5 mg by mouth daily. 10mg ??? acetaminophen (Tylenol) 325 mg Tablet Take 2-3 tablets by mouth every 6 hours as needed for Pain. (Patient not taking: Reported on 09/17/2021) ??? 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 Psych: calm and appropriate BP 164/56 (Patient Position: Sitting) Pulse 76 Resp 18 Ht 181 cm (5' 11.26) Wt 100.2 kg (220 lb 12.8 oz) BMI 30.57 kg/m?? Wt Readings from Last 3 Encounters: 09/17/21 100.2 kg (220 lb 12.8 oz) 08/27/21 98.6 kg (217 lb 6.4 oz) 08/07/21 97.6 kg (215 lb 3.2 oz) Results: Recent Results (from the past 72 hour(s)) Comprehensive metabolic panel (non-fasting) Result Value Ref Range Glucose Lvl 78 65 - 199 mg/dL BUN 24 (H) 10 - 20 mg/dL Creatinine 1.38 0.80 - 1.50 mg/dL Sodium 138 135 - 145 mmol/L Potassium 4.2 3.5 - 5.0 mmol/L Chloride 104 98 - 107 mmol/L CO2 23 22 - 31 mmol/L Anion Gap 11 5 - 15 mmol/L Calcium 9.1 8.5 - 10.5 mg/dL Total Protein 6.8 6.1 - 8.0 g/dL Albumin 4.1 3.2 - 5.2 g/dL AST 65 (H) 0 - 39 unit/L ALT 166 (H) 0 - 55 unit/L Alk Phos 131 (H) 40 - 130 unit/L Total Bilirubin 0.5 0.2 - 1.3 mg/dL Estimated GFR 53 (L) >=60 mL/min/1.73 m?? TSH Result Value Ref Range TSH 2.50 0.27 - 4.20 mcIU/mL T4, free Result Value Ref Range Free T4 1.22 0.93 - 1.70 ng/dL Hemogram Result Value Ref Range WBC 8.8 4.0 - 9.5 x10(3)/mcL RBC 4.83 4.58 - 5.54 x10(6)/mcL Hemoglobin 13.7 13.7 - 16.5 g/dL Hematocrit 41.6 40.5 - 48.5 % MCV 86.1 82.9 - 93.1 fL MCH 28.4 27.5 - 32.1 pg MCHC 32.9 32.0 - 35.7 g/dL Platelets 161 145 - 357 x10(3)/mcL RDWSD 46.8 (H) 36.0 - 45.0 fL RDWCV 14.8 (H) 11.4 - 13.8 % MPV 9.4 7.6 - 12.9 fL nRBC % Auto 0.0 % nRBC Abs Auto 0.000 0.000 - 0.000 x10(3)/mcL Differential, Automated Result Value Ref Range Neutrophils % 73.9 % Neutr Abs (ANC) 6.48 (H) 1.70 - 6.10 x10(3)/mcL Lymphocytes % 14.6 % Lymphocytes Abs 1.3 0.9 - 3.2 x10(3)/mcL Monocytes % 7.8 % Monocyte Abs 0.7 0.3 - 0.9 x10(3)/mcL Eosinophils % 2.2 [...] taper. Pt prefers to get labs at [facility]. We'll send orders and I'll ask our back end web developer to f/u on results. Advised pt to [...] toxicity with significant elevation, we will discontinue Prednisone. Rash flares: also likely related to pembro. Steroids helped. He's scheduled for routine f/u with Dr. Winter/[place] as well. Worsening renal function: unclear etiology - ?immune mediated. He's been on steroids and increased fluid intake over the past couple of weeks. Renal function improved. Will monitor. Mr. Tenorio asked appropriate questions and verbalized good understanding of and agreement with the plan. I encouraged him to call anytime with questions or concerns and he agreed. Plan: - Will DISCONTINUE Pembrolizumab - Continue HOLDING atorvastatin - Restart Prednisone 80mg/day and taper more slowly 80mg x 1 week 60mg/day x 1 week 40mg/day x 1 week 20mg/day x 1 week 10mg/day x 1 week - Will prescribe Protonix 40mg PO daily x 2 months while on prednisone - CMP weekly at [facility] 10/08/21 for labs and clinic visit. CMP weekly at [facility] Sara Loza MD Hematology/Oncology Fellow Pager [phone] 09/17/21 Oncology Attending Addendum I personally reviewed the history, examined the patient, reviewed relevant labs and viewed recent radiographic images. I directly participated in management decisions. My exam and assessment concur with . Please refer to her comprehensive note for details. Albino Bartholomew MD Hematology/Oncology Section, [facility] Fertilizer Processing Supervisorhead of strategy, [facility] [phone] documented in this encounter Plan of Treatment Upcoming Encounters Date Type Department Care Team (Late st Contact Info) Description 02/16/2024 9:15 AM EDT Laboratory Appointment Lab at [facility] Hematology Oncology [address] [place] [address] 02/16/2024 10:20 AM EDT Hospital [place] [phone] Mitali Griffiths APRN [facility] DR HEMATOLOGY [place] [address] 02/16/2024 1:30 PM EDT Office Visit Hematology [place] [address] Albino Bartholomew MD [facility] DR HEMATOLOGY [place] [address] 04/17/2024 10:00 AM EST Office Visit Dermatology at [facility] [address] [place] [address] Oli Winter MD [address] [facility] [place] [address] documented as of this encounter Results * TSH (10/08/2021 12:57 PM EDT) Pathologist [facility] Thyroid Stimulating Hormone 1.18 0.27 - 4.20 mcIU/mL [facility] Comment: Reference Interval (mcIU/mL): Females: ??First Trimester: 0.23-3.88 ??Second Trimester: 0.22-3.90 ??Third Trimester: 0.44-4.66 Blood 10/08/2021 12:5 7 PM EDT 10/08/2021 1:24 PM EDT Narrative Resulting Agency Comment Spec In Lab Albino Bartholomew MD CHEMISTRY ORDERABLES [place] [address] * (ABNORMAL) Comprehensive metabolic panel (non-fasting) (10/08/2021 12:57 PM EDT) Glucose 134 65 - 199 mg/dL [facility] Comment:Diabetes: >=200 mg/d L plus symptoms Blood Urea Nitrogen 41(H) 10 - 20 mg/dL [facility] Creatinine 1.68(H) 0.80 - 1.50 mg/dL [facility] Sodium 137 135 - 145 mmol/L [facility] Potassium 4.8 3.5 - 5.0 mmol/L [facility] Comment: Please note: ??Patients with WBC >100,000 may have falsely elevated Potassium levels. ??For accurate Potassium quantification in these patients send serum separator tube (gold top) for subsequent determinations. ??Contact the Clinical Chemistry Laboratory if there are any questions. Chloride 102 98 - 107 mmol/L [facility] Carbon Dioxide 24 22 - 31 mmol/L [facility] Anion Gap 11 5 - 15 mmol/L [facility] Calcium 9.1 8.5 - 10.5 mg/dL [facility] Protein, Total 6.4 6.1 - 8.0 g/dL [facility] Albumin 4.0 3.2 - 5.2 g/dL [facility] Aspartate Aminotransferase 25 0 - 39 unit/L [facility] Alanine Aminotransferase 45 0 - 55 unit/L [facility] Alkaline Phosphatase 96 40 - 130 unit/L [facility] Bilirubin, Total 0.6 0.2 - 1.3 mg/dL [facility] Est Glomerular Filtration Rate 42(L) >=60 mL/min/1. 73 m?? [facility] Comment: This patient? s estimated [...] In Lab Albino Bartholomew MD CHEMISTRY ORDERABLES [place] [address] documented in this encounter Visit Diagnoses Diagnosis Renal cell carcinoma, unspecified laterality Elevated LFTs Other abnormal blood chemistry Medication management Encounter for long-term (current) use of other medications documented in this encounter Care Teams Varnisher Plasticoater Relationship Specialty Start Date End Date Juan Dempsey MD [address] [place] [address] PCP - General Emergency Medicine 08/20/21 documented as of this encounter
--- OUTSIDE RECORDS SUMMARY | 2024-02-03 16:58 | XMS_ITS | Encounter Summary ---
Author Organization [facility] Address [facility] [address] Care Team Providers Care Snowboarder Name Role Phone Juan Dempsey MD Primary Care Provider [phone] Reason for Visit * Treatment/Therapy Plan Authorization (Routine) - Closed Specialty Diagnoses / Procedures Referred By Burak t Referred To Contact Hematology and Oncology Diagnoses Renal cell carcinoma, unspecified laterality Medication management Procedures [id number] (PEMBROLIZUMAB) Albino Bartholomew MD [facility] [address] [place] [address] [facility] [address] [place] [address] Referral ID Status Reason Start Date Expiration Date Visits Re quested Visits Authorized [id number] Closed 07/30/2021 11/29/2021 99 99 Encounter Details Date Type Department Care Team (Latest Contact Info) Description 09/17/2021 12:09 PM EDT - 09/17/2021 11:59 PM EDT Hospital Encounter Hematology [place] [address] Renal cell carcinoma, unspecified laterality; [...] x 1 week 100 tablet 09/17/2021 10/29/2021 pantoprazole EC (Protonix) 40 mg Tablet, Delayed Release (E.C.) Take 1 tablet by mouth daily. 60 tablet 09/17/2021 10/02/2021 atorvastatin (LIPITOR) 20 mg Tablet Take 20 mg by mouth daily. Currently not taking 02/11/2018 03/19/2022 documented as of this encounter Plan of Treatment Upcoming Encounters Date Type Department Care Team (Late st Contact Info) Description 02/16/2024 9:15 AM EDT Laboratory Appointment Lab at [facility] Hematology Oncology [address] [place] [address] 02/16/2024 10:20 AM EDT Hospital [place] [address] Mitali Griffiths APRN [facility] DR [place] [address] 02/16/2024 1:30 PM EDT Office Visit Hematology [place] [address] Albino Bartholomew MD [facility] DR [place] [address] 04/17/2024 10:00 AM EST Office Visit Dermatology at [address] [place] [address] Oli Winter MD [address] [facility] [place] [address] documented as of this encounter Results * T4, free (09/17/2021 12:27 PM EDT) [facility] Free T4 1.22 0.93 - 1.70 ng/dL [facility] Comment: Reference Interval (ng/dL): Females: ??First Trimester: 0.97-1.68 ??Second Trimester: 0.77-1.51 ??Third Trimester: 0.77-1.49 Blood 09/17/2021 12:2 7 PM EDT 09/17/2021 12:32 PM EDT Narrative Resulting Agency Comment Spec In Lab Kelin Carlos OPERATING ROOM ORDERLY CHEMISTRY ORDERABL ES Performing Organization Address [facility] de Phone Number [facility] [place] [address] * TSH (09/17/2021 12:27 PM EDT) [facility] Thyroid Stimulating Hormone 2.50 0.27 - 4.20 mcIU/mL [facility] Comment: Reference Interval (mcIU/mL): Females: ??First Trimester: 0.23-3.88 ??Second Trimester: 0.22-3.90 ??Third Trimester: 0.44-4.66 Blood 09/17/2021 12:2 7 PM EDT 09/17/2021 12:32 PM EDT Narrative Resulting Agency Comment Spec In Lab Kelin Carlos OPERATING ROOM ORDERLY CHEMISTRY ORDERABL ES Performing Organization Address [facility] Co de Phone Number [facility] [place] [address] * (ABNORMAL) Comprehensive metabolic panel (non-fasting) (09/17/2021 12:27 PM EDT) [facility] Glucose 78 65 - 199 mg/dL [facility] Comment:Diabetes: >=200 mg/d L plus symptoms Blood Urea Nitrogen 24(H) 10 - 20 mg/dL [facility] Creatinine 1.38 0.80 - 1.50 mg/dL [facility] Sodium 138 135 - 145 mmol/L [facility] Potassium 4.2 3.5 - 5.0 mmol/L [facility] Comment: Please note: ??Patients with WBC >100,000 may have falsely elevated Potassium levels. ??For accurate Potassium quantification in these patients send serum separator tube (gold top) for subsequent determinations. ??Contact the Clinical Chemistry Laboratory if there are any questions. Chloride 104 98 - 107 mmol/L [facility] Carbon Dioxide 23 22 - 31 mmol/L [facility] Anion Gap 11 5 - 15 mmol/L [facility] Calcium 9.1 8.5 - 10.5 mg/dL [facility] Protein, Total 6.8 6.1 - 8.0 g/dL [facility] Albumin 4.1 3.2 - 5.2 g/dL [facility] Aspartate Aminotransferase 65(H) 0 - 39 unit/L [facility] Alanine Aminotransferase 166(H) 0 - 55 unit/L [facility] Alkaline Phosphatase 131(H) 40 - 130 unit/L [facility] Bilirubin, Total 0.5 0.2 - 1.3 mg/dL [facility] Est Glomerular Filtration Rate 53(L) >=60 mL/min/1. 73 m?? [facility] Comment: This patient? s estimated glomerular filtration rate (eGFR) is between 53 mL/min/1.73 m2 (patients with less muscle mass per kg body weight) and 61 mL/min/1.73 m2 (patients with more muscle mass [...] and symptoms in addition to eGFR. Blood 09/17/2021 12:2 7 PM EDT 09/17/2021 12:32 PM EDT Narrative Resulting Agency Comment Spec In Lab Kelin Carlos OPERATING ROOM ORDERLY CHEMISTRY ORDERABL ES [facility] [place] [address] documented in this encounter Visit Diagnoses Diagnosis Renal cell carcinoma, unspecified laterality Medication management Encounter for long-term (current) use of other medications documented in this encounter Care Teams Snowboarder Relationship Specialty Start Date End Date Juan Dempsey MD [address] [place] [address] PCP - General Emergency Medicine 08/20/21 documented as of this encounter
--- OUTSIDE RECORDS SUMMARY | 2024-02-03 16:58 | XMS_ITS | Encounter Summary ---
Author Organization [facility] Address [facility] [place] [address] Care Team Providers Care Clarity Specialists Name Role Phone Juan Dempsey MD Primary Care Provider [phone] Reason for Visit * Reason Onset Date Comments Error 09/04/2021 Encounter Details Date Type Department Care Team (Late st Contact Info) Description 09/04/2021 Telephone [place]ematology [place] [address] Daxa Arriola RN Error Social History Tobacco Use Types Packs/Day Years [...] Telephone Encounter - Daxa Arriola RN - 09/04/2021 7:45 AM EDT Entered in error. documented in this encounter Plan of Treatment Upcoming Encounters Date Type Department Care Team (Late st Contact Info) Description 02/16/2024 9:15 AM EDT Laboratory Appointment Lab at [facility] Hematology Oncology [address] [place] [address] 02/16/2024 10:20 AM EDT Hospital Encounter CT Scan at [place] [phone] Mitali Griffiths APRN [facility] [place] [address] 02/16/2024 1:30 PM EDT Office Visit Hematology and Oncology at [place] [phone] Albino Bartholomew MD [facility] DR [place] [address] 04/17/2024 10:00 AM EST Office Visit Dermatology at [address] [address] Oli Winter MD [address] [facility] [place] [address] documented as of this encounter Visit Diagnoses Not on filedocumented in this encounter Care Teams Clarity Specialists Relationship Specialty Start Date End Date Juan Dempsey MD [address] [place] [address] PCP - General Emergency Medicine 08/20/21 documented as of this encounter
--- OUTSIDE RECORDS SUMMARY | 2024-02-03 16:58 | XMS_ITS | Encounter Summary ---
Author Organization [facility] [place] [address] Care Team Providers Care Test Preparer Name Role Phone Lisbet Solitario MD Primary Care Provider [phone] Reason for Visit * Reason Onset Date Comments Error 08/11/2021 Encounter Details Date Type Department Care Team (Late st Contact Info) Description 08/11/2021 Telephone [place]ematology [place] [address] Noemí Barba, RN Error Social History Tobacco Use Types [...] encounter Miscellaneous Notes * Telephone Encounter - Noemí Barba RN - 08/11/2021 7:34 AM EDT Entered in error. documented in this encounter Plan of Treatment Upcoming Encounters Date Type Department Care Team (Late st Contact Info) Description 02/16/2024 9:15 AM EDT Laboratory Appointment Lab at [facility] [place] On[place] [address] [place] [address] 02/16/2024 10:20 AM EDT Hospital [place] [phone] Mitali Griffiths APRN [facility] DR HEMATOLOGY [place] [address] 02/16/2024 1:30 PM EDT Office Visit [place]ology [place] [phone] Albino Bartholomew MD [facility] DR HEMATOLOGY [place] [address] 04/17/2024 10:00 AM EST Office Visit Dermatology at [facility] [address] [place] [address] Oli Winter MD [address] [facility] [place] [place] [address] documented as of this encounter Visit Diagnoses Not on filedocumented in this encounter Care Teams Test Preparer Relationship Specialty Start Date End Date Lisbet Solitario MD [address] [place] [address] PCP - General Family Medicine 01/30/16 08/19/21 documented as of this encounter
--- OUTSIDE RECORDS SUMMARY | 2024-02-03 16:58 | XMS_ITS | Encounter Summary ---
Author Organization [facility] Address [facility] [place] [address] Care Team Providers Care Purchase Price Analyst Name Role Phone Juan Dempsey MD Primary Care Provider [phone] Encounter Details Date Type Department Care Team (Latest Contact Info) Description 09/17/2021 12:08 PM EDT Hospital Encounter [place] [phone] Renal cell carcinoma, unspecified laterality; Medication management [...] 9:15 AM EDT Laboratory Appointment Lab at [facility] Hematology Oncology [address] [place] [address] 02/16/2024 10:20 AM EDT [place] [address] Mitali Griffiths APRN [facility] [address] [place] [address] 02/16/2024 1:30 PM EDT Office Visit [place] [address] Albino Bartholomew MD [facility] [address] [place] [address] 04/17/2024 10:00 AM EST Office Visit Dermatology at [facility] [address] [place] [address] lOi Winter MD [address] [facility] [place] [address] documented as of this encounter Procedures Procedure Name Priority Date/Time Associated Diagnosis Comments HEMOGRAM STAT 09/17/2021 12:27 PM EDT Renal cell carcinoma, unspecified laterality Medication management DIFFERENTIAL, AUTOMATED STAT 09/17/2021 12:27 PM EDT Renal cell carcinoma, unspecified laterality Medication management HC CBC,PLT & AUTO DIFF STAT 12:27 PM EDT Renal cell carcinoma, unspecified laterality Medication management HC THYROID STIMULATING HORMONE, SERUM STAT 09/17/2021 12:27 PM EDT Renal cell carcinoma, unspecified laterality Medication management HC FREE THYROXINE (T4) STAT 12:27 PM EDT Renal cell carcinoma, unspecified laterality Medication management COMPREHENSIVE METABOLIC PANEL STAT 09/17/2021 12:27 PM EDT Renal cell carcinoma, unspecified laterality Medication management documented in this encounter Results * (ABNORMAL) Differential, Automated (09/17/2021 12:27 PM EDT) Neutrophil % 73.9 % [facility] Neutrophil Absolute 6.48(H) 1.70 - 6.10 x10(3)/mc L [facility] Lymph % 14.6 % [facility] Lymphocytes Abs 1.3 0.9 - 3.2 x10(3)/[facility] Monocyte % 7.8 % [facility] Monocyte Abs 0.7 0.3 - 0.9 x10(3)/[facility] Eos % 2.2 % [facility] Eosinophils Abs 0.2 0.0 - 0.4 x10(3)/[facility] Basophil % 1.0 % [facility] Baso Absolute 0.1 0.0 - 0.1 x10(3)/[facility] Immature Gran % 0.50 % [facility] Comment: Immature granulocytes(IG's)percentage and absolute count will include metamyelocytes, myelocytes, and promyelocytes. Blood smears from CBCs yielding IG's will be scanned manually for concordance. If this scan disagrees with the automated IG or if promyelocytes are noted, a manual differential will be performed. Immature Gran Absolute 0.04 0.00 - 0.04 x10(3)/[facility] Blood 09/17/2021 12:2 7 PM EDT 09/17/2021 12:32 PM EDT Narrative Resulting Agency Comment Spec In Lab Kelin Carlos B[employer]KE [employer] HEMATOLOGY ORDERAB LES Performing Organization Address City/State/[facility] Co de Phone Number [facility] [place] [address] * (ABNORMAL) Hemogram (09/17/2021 12:27 PM EDT) White Blood Cell 8.8 4.0 - 9.5 x10(3)/[facility] Red Blood Cell 4.83 4.58 - 5.54 x10(6)/[facility] Hemoglobin 13.7 13.7 - 16.5 g/dL [facility] Hematocrit 41.6 40.5 - 48.5 % [facility] Mean Cell Volume 86.1 82.9 - 93.1 fL [facility] Mean Cell Hemoglobin 28.4 27.5 - 32.1 pg [facility] Mean Cell Hemoglobin Concentration 32.9 32.0 - 35.7 g/dL [facility] Platelet 161 145 - 357 x10(3)/mc L [facility] RDW Standard Deviation 46.8(H) 36.0 - 45.0 fL [facility] RDW coefficient of variation 14.8(H) 11.4 - 13.8 % [facility] Mean Platelet Volume 9.4 7.6 - 12.9 [facility] NRBC% auto 0.0 % [facility] NRBC Absolute 0.000 0.000 - 0.000 x10(3)/mc L [facility] Blood 09/17/2021 12:2 7 PM EDT 09/17/2021 12:32 PM EDT Narrative Resulting Agency Comment Spec In Lab Kelin Carlos APRN HEMATOLOGY ORDERAB LES [facility] [place] [address] * T4, free (09/17/2021 12:27 PM EDT) Free T4 1.22 0.93 - 1.70 ng/dL [facility] Comment: Reference Interval (ng/dL): Females: ??First Trimester: 0.97-1.68 ??Second Trimester: 0.77-1.51 ??Third Trimester: 0.77-1.49 Blood 09/17/2021 12:2 7 PM EDT 09/17/2021 12:32 PM EDT Narrative Resulting Agency Comment Spec In Lab Kelin Carlos APRN CHEMISTRY ORDERABL ES [facility] [place] [address] * TSH (09/17/2021 12:27 PM EDT) Thyroid Stimulating Hormone 2.50 0.27 - 4.20 mcIU/mL [facility] Comment: Reference Interval (mcIU/mL): Females: ??First Trimester: 0.23-3.88 ??Second Trimester: 0.22-3.90 ??Third Trimester: 0.44-4.66 Blood 09/17/2021 12:2 7 PM EDT 09/17/2021 12:32 PM EDT Narrative Resulting Agency Comment Spec In Lab Kelin Carlos APRN CHEMISTRY ORDERABL ES [facility] [place] [address] * (ABNORMAL) Comprehensive metabolic panel (non-fasting) (09/17/2021 12:27 PM EDT) Pathologist [facility] Glucose 78 65 - 199 mg/dL [facility] Comment:Diabetes: >=200 mg/d L plus symptoms Blood Urea Nitrogen 24(H) 10 - 20 mg/dL [facility] Creatinine 1.38 0.80 - 1.50 mg/dL [facility] Sodium 138 135 - 145 mmol/L [facility] Potassium 4.2 3.5 - 5.0 mmol/L [facility] Comment: Please note: ??Patients with WBC >100,000 may have falsely elevated Potassium levels. ??For accurate Potassium quantification in these patients send serum separator tube (gold top) for subsequent determinations. ??Contact the Clinical Chemistry Laboratory if there are any questions. Chloride 104 98 - 107 mmol/L [facility] Carbon Dioxide 23 22 - 31 mmol/L [facility] Anion Gap 11 5 - 15 mmol/L [facility] Calcium 9.1 8.5 - 10.5 mg/dL [facility] Protein, Total 6.8 6.1 - 8.0 g/dL [facility] Albumin 4.1 3.2 - 5.2 g/dL [facility] Aspartate Aminotransferase 65(H) 0 - 39 unit/L [facility] Alanine Aminotransferase 166(H) 0 - 55 unit/L [facility] Alkaline Phosphatase 131(H) 40 - 130 unit/L [facility] Bilirubin, Total 0.5 0.2 - 1.3 mg/dL [facility] Est Glomerular Filtration Rate 53(L) >=60 mL/min/1. 73 m?? [facility] Comment: This patient? s estimated [...] Agency Comment Spec In Lab Kelin Carlos [employer] CHEMISTRY ORDERABL ES Performing Organization Address City/State/[facility] Co de Phone Number [facility] [place] [address] documented in this encounter Visit Diagnoses Diagnosis Renal cell carcinoma, unspecified laterality Medication management Encounter for long-term (current) use of other medications documented in this encounter Care Teams Purchase Price Analyst Relationship Specialty Start Date End Date Juan Dempsey MD [address] [place] [address] PCP - General Emergency Medicine 08/20/21 documented as of this encounter
--- OUTSIDE RECORDS SUMMARY | 2024-02-03 16:58 | XMS_ITS | Encounter Summary ---
Author Organization [facility] Address [facility] [place] [address] Care Team Providers Care Puppet Maker Name Role Phone Juan Dempsey MD Primary Care Provider [phone] Encounter Details Date Type Department Care Team (Late st Contact Info) Description 10/01/2021 Telephone Hematology [place] [address] Noemí Barba RN Social History Tobacco Use Types Packs/Day [...] Telephone Encounter - Noemí Barba RN - 10/01/2021 7:56 AM EDT Follow-up: screen printer to follow-up on CMP results on 10/01 (following LFT's) and call Cristofer with results and plan to taper pred. Been on 60 mg daily of pred since 09/24. 60mg/day x 1 week 40mg/day x 1 week 20mg/day x 1 week 10mg/day x 1 week Lab results reviewed with Jennifer Carlos APRN who states LFT's look good. He should push fluids to helpwith elevated BUN. He can continue to taper his prednisone. Call placed to Cristofer to discuss. Reviewed above with Cristofer and he was comfortable with this plan. He will RTC on 10/08 for labs and visit and will discuss further taper with Dr. Bartholomew/Jennifer Carlos APRN during his visit. He was encouraged to push fluids and call back should he have further questionsor concerns. He verbalized understanding. screen printer to follow-up on prednisone taper after clinic visit on 10/08. Should be tapering to the followinmg/day x 1 week 10mg/day x 1 week documented in this encounter Plan of Treatment Upcoming Encounters Date Type Department Care Team (Late st Contact Info) Description 02/16/2024 9:15 AM EDT Laboratory Appointment Lab at [facility] Hematology Oncology [address] [place] [id number] 02/16/2024 10:20 AM EDT Hospital [place] [address] [facility] DR [place] [address] 02/16/2024 1:30 PM EDT Office Visit Hematology [place] [address] [facility] DR HEMATOLOGY AND ONCOLOGY [place], [place] [id number] 04/17/2024 10:00 AM EST Office Visit Dermatology at [facility] [address] [place] [address] Oli Winter MD [address] [facility] [place] [address] documented as of this encounter Procedures Procedure Name Priority Date/Time Associated Diagnosis Comments COMPREHENSIVE METABOLIC PANEL Routine 10/01/2021 documented in this encounter Results * (ABNORMAL) Comprehensive metabolic panel (non-fasting) (10/01/2021) Glucose 115(A) 74 - 106 Blood Urea Nitrogen 37(A) 7 - 18 Creatinine 1.5(A) 0.70 - 1.30 Sodium 139 136 - 145 Potassium 4.1 3.5 - 5.1 Chloride 102 98 - 107 Carbon Dioxide 30 21 - 32 Calcium 8.7 8.5 - 10.1 Albumin 3.6 3.4 - 5.0 Bilirubin, Total 0.7 0.2 - 1.0 Alkaline Phosphatase 108 46 - 116 Aspartate Aminotransferase 15 15 - 37 Alanine Aminotransferase 58 16 - 63 Blood 10/01/2021 Historical Provider CHEMISTRY ORDERAB LES documented in this encounter Visit Diagnoses Not on filedocumented in this encounter Care Teams Puppet Maker Relationship Specialty Start Date End Date Juan Dempsey MD [address] [place] [address] PCP - General Emergency Medicine 08/20/21 documented as of this encounter
--- OUTSIDE RECORDS SUMMARY | 2024-02-03 16:58 | XMS_ITS | Encounter Summary ---
Author Organization [facility] Address [facility] [place] [address] Care Team Providers Care Quantitative Equity Head Name Role Phone Juan Dempsey MD Primary Care Provider [phone] Encounter Details Date Type Department Care Team (Late st Contact Info) Description 09/10/2021 Telephone Hematology [place] [address] Noemí Barba RN Social History [...] Telephone Encounter - Noemí Barba RN - 09/10/2021 7:40 AM EDT Follow-up: F/U on [facility] 09/11. Following LFT's, Kidney function & K+. ??On pred 20 09/08-09/10. If labs ok can taper to 10 mg po daily x 3 days. Discuss with Jennifer when pt will need labs again. Lab results reviewed with Jennifer Carlos APRN who states: Labs definitely continuing to improve. ALT still sl elevated but better. K back to normal. Corrected Ca is 8.7. Let's have him contnue to taper per plan: Prednisone 20 mg po 09/08-09/10 Prednisone 10 mg po 09/11-09/13 He can stop the prednisone after 09/13. We'll just re-check labs when we see him next week Call placed to Cristofer to discuss. Reviewed above with Cristofer and he was comfortable with this plan. Encouraged him to call back should he have further questions or concerns. He verbalized understanding. documented in this encounter Plan of Treatment Upcoming Encounters Date Type Department Care Team (Late st Contact Info) Description 02/16/2024 9:15 AM EDT Laboratory Appointment Lab at [facility] Hematology Oncology [address] [place] [address] 02/16/2024 10:20 AM EDT Hospital [place] [address] [facility] DR [place]ATOLOGY [place] [address] 02/16/2024 1:30 PM EDT Office Visit Hematology [place] [address] [facility] DR HEMATOLOGY [place] [address] 04/17/2024 10:00 AM EST Office Visit Dermatology at [facility] [address] [place] [address] Oli Winter MD [address] [facility] [place] [address] documented as of this encounter Visit Diagnoses Not on filedocumented in this encounter Care Teams Quantitative Equity Head Relationship Specialty Start Date End Date Juan Dempsey MD [address] [place] [address] PCP - General Emergency Medicine 08/20/21 documented as of this encounter
--- OUTSIDE RECORDS SUMMARY | 2024-02-03 16:58 | XMS_ITS | Encounter Summary ---
Author Organization [facility] Address [facility] [place] [address] Care Team Providers Care Devops Solutions Architect Name Role Phone Juan Dempsey MD Primary Care Provider [phone] Encounter Details Date Type Department Care Team (Late st Contact Info) Description 08/29/2021 Orders Only Hematology [place] [phone] Kelin Carlos APRN [facility] [place] [address] Elevated LFTs Social History Tobacco Use Types [...] [facility] Hematology Oncology [address] [place] [address] 02/16/2024 10:20 AM EDT Hospital [place] [address] Mitali Griffiths APRN [facility] DR [place] [address] 02/16/2024 1:30 PM EDT Office Visit Hematology [place] [address] Albino Bartholomew MD [facility] DR [place] [address] 04/17/2024 10:00 AM EST Office Visit Dermatology at [facility] [address] [place] [address] Oli Winter MD [address] [facility] [place] [address] documented as of this encounter Visit Diagnoses Diagnosis Elevated LFTs Other abnormal blood chemistry documented in this encounter Care Teams Devops Solutions Architect Relationship Specialty Start Date End Date Juan Dempsey MD [address] [place] [address] PCP - General Emergency Medicine 08/20/21 documented as of this encounter
--- OUTSIDE RECORDS SUMMARY | 2024-02-03 16:58 | XMS_ITS | Encounter Summary ---
Author Organization [facility] Address [facility] [place] [address] Care Team Providers Care Director Index Name Role Phone Juan Dempsey MD Primary Care Provider [phone] Encounter Details Date Type Department Care Team (Late st Contact Info) Description 08/29/2021 Telephone Urology at [facility] [place] [phone] Jordan Hou MD [facility] [place] [address] Social History Tobacco Use Types Packs/Day Years [...] encounter Miscellaneous Notes * Telephone Encounter - Eliz Muniz - 08/29/2021 3:12 PM EDT Spoke with patient to reschedule bumped appointment, and he is wondering if he still needs to have the CT of the chest done and the BMP as he had a CT scan of the chest and abdomen done in July and he just had a CMP done on 08/27. documented in this encounter Plan of Treatment Upcoming Encounters Date Type Department Care Team (Late st Contact Info) Description 02/16/2024 9:15 AM EDT Laboratory Appointment Lab at [facility] Hematology Oncology [address] [place] [address] 02/16/2024 10:20 AM EDT Hospital [place] [address] Mitali Griffiths APRN [facility] DR [place] [address] 02/16/2024 1:30 PM EDT Office Visit [place] [address] Albino Bartholomew MD [facility] DR [place] [address] 04/17/2024 10:00 AM EST Office Visit Dermatology at [facility] [address] [place] [address] Oli Winter MD [address] [facility] [place] [place] [address] documented as of this encounter Visit Diagnoses Not on filedocumented in this encounter Care Teams Director Index Relationship Specialty Start Date End Date Juan Dempsey MD [address] [place] [address] PCP - General Emergency Medicine 08/20/21 documented as of this encounter
--- OUTSIDE RECORDS SUMMARY | 2024-02-03 16:58 | XMS_ITS | Encounter Summary ---
Author Organization [facility] Address [facility] [place] [address] Care Team Providers Care Electronic Organ Technician Name Role Phone Juan Dempsey MD Primary Care Provider [phone] Reason for Referral * Consultation (JUAN MANUEL) - Closed Specialty Diagnoses / Procedures Referred By Contjuan t Referred To Contact Gastroenterology Diagnoses Encounter for screening for malignant neoplasm of colon Juan Dempsey MD [address] [place] [address] Jordyn Merino MD [facility] [place] [address] Referral ID Status Reason Start Date Expiration Date V isits Requested Visits Authorized [id number] Closed Surgical PCP Updated and/or Approved 08/20/2021 08/20/2022 6 6 Encounter Details Date Type Department Care Team (Latest Contact Info) Description 08/20/2021 Transcribe Orders eDH Incoming Referrals [phone] Juan Dempsey MD [address] [place] [address] Encounter for screening for malignant neoplasm of colon Social History Tobacco Use Types Packs/Day Years [...] [facility] Hematology Oncology [address] [place] [address] 02/16/2024 10:20 AM EDT Hospital [place] [address] Mitali Griffiths, CENTRAL OFFICE ASSOCIATE [facility] DR HEMATOLOG[place] [address] 02/16/2024 1:30 PM EDT Office Visit Hematology [place] [address] Albino Bartholomew MD [facility] DR [place]ATOLOG[place] [address] 04/17/2024 10:00 AM EST Office Visit Dermatology at [facility] [address] [place] [address] Oli Winter MD [address] [facility] [place] [address] Scheduled Referrals Name Type Priority Associated Diagnoses Order Schedule REFERRAL TO COLONOSCOPY PROCEDURE Outpatient Referral Routine Encounter for screening for malignant neoplasm of colon Ordered: 08/20/2021 documented as of this encounter Visit Diagnoses Diagnosis Encounter for screening for malignant neoplasm of colon Special screening for malignant neoplasms, colon documented in this encounter Care Teams Electronic Organ Technician Relationship Specialty Start Date End Date Juan Dempsey MD [address] [place] [address] PCP - General Emergency Medicine 08/20/21 documented as of this encounter
--- OUTSIDE RECORDS SUMMARY | 2024-02-03 16:58 | XMS_ITS | Encounter Summary ---
Author Organization [facility] [place] [address] Care Team Providers Care Network/Telecom Engineer Name Role Phone Lisbet Solitario MD Primary Care Provider [phone] Reason for Referral * Diagnostic Test (Routine) - Closed Specialty Diagnoses / Procedures Referred By Contac t Referred To Contact Radiology Diagnoses Renal cell carcinoma, unspecified laterality Procedures CT Chest Abdomen Pelvis w Contrast (Generic) Jose Awad [facility] HEMATOLOGY/[place] [address] [facility] [place] [address] Referral ID Status Reason Start Date Expiration Date V isits Requested Visits Authorized [id number] Closed Specialty Service Requested 07/16/2021 01/16/2023 1 1 Reason for Visit * Diagnostic Test (Routine) - Closed Specialty Diagnoses / Procedures Referred By Contac t Referred To Contact Radiology Diagnoses Renal cell carcinoma, unspecified laterality Procedures CT Chest Abdomen Pelvis w Contrast (Generic) Jose Awad [facility] HEMATOLOGY/[place] [address] [facility] [place] [address] Referral ID Status Reason Start Date Expiration Date V isits Requested Visits Authorized [id number] Closed Specialty Service Requested 07/16/2021 01/16/2023 1 1 Encounter Details Date Type Department Care Team (Latest Contact Info) Description 07/20/2021 10:41 AM EDT - 07/20/2021 11:59 PM EDT Hospital Encounter CT Scan at [facility] [place] [address] Albino Bartholomew MD [facility] [address] HEMATOLOGY [place] [address] Renal cell carcinoma, unspecified laterality [...] Sig Dispensed Refills Start Date End Date acetaminophen (Tylenol) 325 mg Tablet Take 2-3 tablets by mouth every 6 hours as needed for Pain. 06/27/2021 losartan (COZAAR) 100 mg Tablet Take 100 mg by mouth daily. 04/11/2019 amLODIPine (Norvasc) 5 mg Tablet Take 5 mg by mouth daily. 10mg 09/17/2021 polyethylene glycoL (Miralax) 17 gram Powder in Packet Take 17 g by mouth daily as needed. 06/27/2021 08/07/2021 atorvastatin (LIPITOR) 20 mg Tablet Take 20 mg by mouth daily. Currently not taking 02/11/2018 03/19/2022 documented as of this encounter Plan of Treatment Upcoming Encounters Date Type Department Care Team (Late st Contact Info) Description 02/16/2024 9:15 AM EDT Laboratory Appointment Lab at [facility] Hematology Oncology [address] [place] [address] 02/16/2024 10:20 AM EDT Hospital Encounter [place] [phone] Mitali Griffiths APRN [facility] DR HEMATOLOGY [place] [address] 02/16/2024 1:30 PM EDT Office Visit Hematology [place] [phone] Albino Bartholomew MD [facility] DR HEMATOLOGY [place] [address] 04/17/2024 10:00 AM EST Office Visit Dermatology at [facility] [address] [place] [address] Oli Winter MD [address] [facility] [place] [address] documented as of this encounter Procedures Procedure Name Priority Date/Time Associated Diagnosis Comments CT CHEST ABDOMEN PELVIS W CONTRAST (GENERIC) Routine 07/20/2021 1:14 PM EDT Renal cell carcinoma, unspecified laterality documented in this encounter Results * CT Chest Abdomen Pelvis w Contrast (Generic) (07/20/2021 1:14 PM EDT) Anatomical Region Laterality Modality Abdomen, Pelvis Computed Tomogra phy 07/20/2021 1:27 PM EDT Impressions 07/20/2021 1:26 PM EDT 1. ??Post LEFT nephrectomy since the previous study. Nonspecific small nodular densities seen in postoperative bed along with a mild degree of mesenteric stranding. Recommend continued follow-up. No evidence of distant metastasis. Thank you for letting us participate in the care of this patient. ??If you are a health care provider and have any questions regarding this report, please contact the number below. ??For patients who have questions please contact the health primary care coordinator that requested your imaging first. ? Electronically signed by: German Morel MD, [facility] ([phone]), at 07/20/2021 1:26 PM Narrative 07/20/2021 1:26 PM EDT EXAMINATION: CT CHEST ABDOMEN PELVIS W CONTRAST (GENERIC) CLINICAL HISTORY: Kidney cancer, follow up TECHNIQUE: Helical CT of the chest, abdomen, and pelvis was performed following the intravenous administration of contrast. Administered 110.0 ml of OMNIPAQUE 350.00 mg/ml. Oral contrast was administered. COMPARISON: The chest portion of examination is compared to study from 05/29/2020 and the abdomen and pelvis is compared to study from 05/20/2020, both outside studies FINDINGS: Chest: Lungs and large airways: Stable. Stable 3 mm nodular density RIGHT apex. Stable elongated 1 cm subpleural nodular density LEFT lower lobe. No new pulmonary nodules. No areas of airspace consolidation. Pleura: No effusion. Heart/vasculature: Normal. Lymph nodes: No enlarged lymph nodes. Mediastinum and christine: Normal. Abdomen/pelvis: Liver: Normal size and attenuation without lesions. Bile ducts: Nondilated. Gallbladder: No gallbladder wall thickening. No cholelithiasis Pancreas: Normal attenuation without ductal dilatation. Spleen: Normal. Adrenals: Normal. Kidneys: Post LEFT nephrectomy since the previous study. Nonspecific 5 mm or less scattered nodular densities are seen in the postsurgical bed along with nonspecific area of stranding in the postoperative bed mesentery. The RIGHT kidney is stable with a subcentimeter cortical hypoattenuating lesion. This is likely a small cyst. No RIGHT renal collecting system obstruction. Urinary Bladder: Normal. Vasculature: No aneurysm. Lymph Nodes: ??No enlarged lymph nodes. Bowel: Nondilated, no wall thickening. ?? Peritoneum and mesentery: No ascites, free air, or loculated fluid collection. No mesenteric inflammation. As described above, nonspecific stranding in the post LEFT nephrectomy surgical bed. Abdominal wall: Small bilateral fat-containing inguinal hernias Reproductive organs: Normal. Osseous structures: No suspicious lesions. Procedure Note German Morel MD - 07/20/2021 EXAMINATION: CT CHEST ABDOMEN PELVIS W CONTRAST (GENERIC) CLINICAL HISTORY: Kidney cancer, follow up TECHNIQUE: Helical CT of the chest, abdomen, and pelvis was performedfollowing the intravenous administration of contrast. Administered 110.0 ml ofOMNIPAQUE 350.00 mg/ml. Oral contrast was administered. COMPARISON: The chest portion of examination is compared to study from05/29/2020 and the abdomen and pelvis is compared to study from 05/20/2020, bothoutside studies FINDINGS: Chest: Lungs and large airways: Stable. Stable 3 mm nodular density RIGHT apex.Stable elongated 1 cm subpleural nodular density LEFT lower lobe. No newpulmonary nodules. No areas of airspace consolidation. Pleura: No effusion. Heart/vasculature: Normal. Lymph nodes: No enlarged lymph nodes. Mediastinum and christine: Normal. Abdomen/pelvis: Liver: Normal size and attenuation without lesions. Bile ducts: Nondilated. Gallbladder: No gallbladder wall thickening. No cholelithiasis Pancreas: Normal attenuation without ductal dilatation. Spleen: Normal. Adrenals: Normal. Kidneys: Post LEFT nephrectomy since the previous study. Nonspecific 5 mmor less scattered nodular densities are seen in the postsurgical bed alongwith nonspecific area of stranding in the postoperative bed mesentery. TheRIGHT kidney is stable with a subcentimeter cortical hypoattenuating lesion.This is likely a small cyst. No RIGHT renal collecting system obstruction. Urinary Bladder: Normal. Vasculature: No aneurysm. Lymph Nodes: No enlarged lymph nodes. Bowel: Nondilated, no wall thickening. Peritoneum and mesentery: No ascites, free air, or loculated fluidcollection. No mesenteric inflammation. As described above, nonspecific stranding inthe post LEFT nephrectomy surgical bed. Abdominal wall: Small bilateral fat-containing inguinal hernias Reproductive organs: Normal. Osseous structures: No suspicious lesions. IMPRESSION 1. Post LEFT nephrectomy since the previous study. Nonspecific smallnodular densities seen in postoperative bed along with a mild degree ofmesenteric stranding. Recommend continued follow-up. No evidence of distantmetastasis. Thank you for letting us participate in the care of this patient. If youare a health care provider and have any questions regarding this report,please contact the number below. For patients who have questions please contactthe health primary care coordinator that requested your imaging first. Electronically signed by: German Mroel MD, [facility]([phone]), at 07/20/2021 1:26 PM Albino Bartholomew MD [facility] [place] ORDERABLES documented in this encounter Visit Diagnoses Diagnosis Renal cell carcinoma, unspecified laterality documented in this encounter Administered Medications Inactive Administered Medications - up to 3 most recent administrations Medication Order MAR Action Action Date Dose Rate Site iohexoL (Omnipaque) (350 mg/mL) solution 0-200 mL 0-200 mL, Intravenous, ONCE PRN, 1 dose, Starting on 07/20/21 at 1314, Until 07/20/21 at 1314, Per Protocol, Warning Vesicant/Irritant Medication , Radiology Contrast, Routine Given 07/20/2021 1:14 PM EDT 110 mLs iohexoL (Omnipaque) (350 mg/mL) solution 0-50 mL 0-50 mL, Oral, ONCE PRN, 1 dose, Starting on 07/20/21 at 1314, Until 07/20/21 at 1314, Per Protocol, Warning Vesicant/Irritant Medication , Radiology Contrast, Routine Given 07/20/2021 1:14 PM EDT 50 mLs documented in this encounter Care Teams Network/Telecom Engineer Relationship Specialty Start Date End Date Lisbet Solitario MD [address] [place] [address] PCP - General Family Medicine 01/30/16 08/19/21 documented as of this encounter
--- OUTSIDE RECORDS SUMMARY | 2024-02-03 16:58 | XMS_ITS | Encounter Summary ---
Author Organization [facility] Address [facility] [place] [address] Care Team Providers Care Development Disability Specialist Name Role Phone Juan Dempsey MD Primary Care Provider [phone] Encounter Details Date Type Department Care Team (Late st Contact Info) Description 09/24/2021 Telephone Hematology [place] [address] Noemí Barba RN Social History [...] Telephone Encounter - Noemí Barba RN - 09/24/2021 7:52 AM EDT Request from provider- Jennifer Carlos APRN: CMP weekly at [facility] to monitor LFTs. Lab results reviewed with Jennifer Carlos APRN who states he should be on 80 mg of prednisone daily for the last week. Since his LFT's are improved, he can decrease to 60 mg daily x 7 days. We should recheck a CMP again in 1 week. Restart Prednisone 80mg/day and taper more slowly 80mg x 1 week 60mg/day x 1 week 40mg/day x 1 week 20mg/day x 1 week 10mg/day x 1 week Call placed to Cristofer to discuss. Reviewed lab results from today. He has been on 80 mg daily of prednisone and he decreased this dose to 60 mg daily starting this morning. He plan to stay on this foranother 7 days. He will get a CMP drawn again on 10/01 at [facility]. They have standing orders already andhe will walk in for this lab draw. Reviewed we would call him on 10/01 to review lab results and discu ss further pred taper. He was encouraged to call back should he have further questions or concerns.He verbalized understanding. retail link analyst to follow-up on CMP results on 10/01 (following LFT's) and call Cristofer with results and planto taper pred. 60mg/day x 1 week 40mg/day x 1 week 20mg/day x 1 week 10mg/day x 1 week documented in this encounter Plan of Treatment Upcoming Encounters Date Type Department Care Team (Late st Contact Info) Description 02/16/2024 9:15 AM EDT Laboratory Appointment Lab at [facility] [place] [address] [place] [address] 02/16/2024 10:20 AM EDT Hospital [place] [address] Mitali Griffiths APRN [facility] DR HEMATOLOGY AND ONCOLOGY [place] [id number] 02/16/2024 1:30 PM EDT Office Visit Hematology [place] [address] Albino Bartholomew MD [facility] DR HEMATOLOGY AND ONCOLOGY [place], [place] [id number] 04/17/2024 10:00 AM EST Office Visit Dermatology at [facility] [address] [place] [address] Oli Winter MD [address] [facility] [place] [address] documented as of this encounter Procedures Procedure Name Priority Date/Time Associated Diagnosis Comments CBC (WITH DIFF) Routine 09/24/2021 COMPREHENSIVE METABOLIC PANEL Routine 09/24/2021 documented in this encounter Results * (ABNORMAL) Comprehensive metabolic panel (non-fasting) (09/24/2021) Glucose 202(A) 74 - 106 Blood Urea Nitrogen 29(A) 7 - 18 Creatinine 1.6(A) 0.70 - 1.30 Sodium 141 136 - 145 Potassium 3.4(A) 3.5 - 5.1 Chloride 104 98 - 107 Carbon Dioxide 28(A) 31 - 32 Calcium 8.7 8.5 - 10.1 Albumin 3.6 3.4 - 5.0 Bilirubin, Total 0.4 0.2 - 1.0 Alkaline Phosphatase 127(A) 46 - 116 Aspartate Aminotransferase 24 15 - 37 Alanine Aminotransferase 111(A) 16 - 63 Thyroid Stimulating Hormone 3.23 0.36 - 3.74 Blood 09/24/2021 Historical Provider CHEMISTRY ORDERAB LES * (ABNORMAL) CBC (with Diff) (09/24/2021) White Blood Cell 9.79 4.4 - 10.8 Hemoglobin 14.3 13.5 - 17.5 Hematocrit 44.5 40.0 - 50.0 Platelet 189 130 - 400 Neutrophil Absolute (ANC) - Automated 7.63(A) 1.2 - 6.7 Blood 09/24/2021 Historical Provider HEMATOLOGY ORDERA BLES documented in this encounter Visit Diagnoses Not on filedocumented in this encounter Care Teams Development Disability Specialist Relationship Specialty Start Date End Date Juan Dempsey MD [address] [place] [address] PCP - General Emergency Medicine 08/20/21 documented as of this encounter
--- OUTSIDE RECORDS SUMMARY | 2024-02-03 16:58 | XMS_ITS | Encounter Summary ---
Author Organization [facility] Address [facility] [place] [address] Care Team Providers Care Powerhouse Operator Name Role Phone Juan Dempsey MD Primary Care Provider [phone] Reason for Visit * Reason Comments Follow-up Encounter Details Date Type Department Care Team (Late st Contact Info) Description 08/27/2021 1:30 PM EDT Office Visit Hematology [place] [address] Kelin Carlos APRN [facility] [place] [address] Toxic hepatitis; Renal cell carcinoma, unspecified laterality; Elevated LFTs; Renal function impairment; Rash Social History Tobacco Use Types Packs/Day Years [...] Sign Reading Time Taken Comments Blood Pressure 148/60 08/27/2021 1:24 PM EDT Pulse 67 08/27/2021 1:24 PM EDT Temperature 36.7 ??C (98.1 ??F) 08/27/2021 1:24 PM ED T Respiratory Rate 18 08/27/2021 1:24 PM EDT Oxygen Saturation 99% 08/27/2021 1:24 PM EDT Inhaled Oxygen Concentration - - Weight 98.6 kg (217 lb 6.4 oz) 08/27/2021 1:24 P M EDT Height 178.2 cm (5' 10.16) 08/27/2021 1:24 PM E DT Body Mass Index 31.05 08/27/2021 1:24 PM EDT documented in this encounter Progress Notes * Kelin Carlos APRN - 08/27/2021 1:30 PM EDT Images from the original note were not included. [facility] Oncology - Follow Up Visit History [...] symptoms. Interval History: Cristofer returns for f/u and consideration of C2 pembro. Accompanied by Emily. -Feeling well overall -No new constitutional symptoms -No respiratory symptoms -BMs good - normal, loose gurgly stomach yesterday after eating fried foods, back to normal consistency today -Few red spots on arms/legs and rash on back of neck along hairline has flared up -Fungal on R foot clearing up, using OTC fungal cream -Some pain in R shoulder blade area, thinks associated w/increase muscle use, takes Tylenol 325 mg every other day on average with effect -Scheduled colonoscopy (routine) -Scheduled to see Dr. Winter/Derm for routine f/u -PCP increased BP med (amlodipine from 5 to 10 mg daily) Patient Active Problem List Diagnosis Code ??? Renal mass N28.89 ??? Renal cell carcinoma C64.9 ??? Medication management Z79.899 PMH, PSH, and current medications reviewed, as documented in the electronic medical record. Current Outpatient Medications on File Prior to Visit Medication Sig Dispense Refill ??? diphenhydrAMINE (Benadryl) 25 mg Capsule Take 25 mg by mouth every 6 hours as needed for Itching. For seasonal allergies ??? amLODIPine (Norvasc) 5 mg Tablet Take 5 mg by mouth daily. ??? 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 Neck: Normal ROM, supple. Cardiovascular: RRR, no murmur. Resp: Effort normal. No respiratory distress. CTAB. Abdominal: Soft, NT, ND, well healed incision, no appreciable masses, organomegaly or ascites. Back: No abnormal curvature, spinal or CVA tenderness. Skin: Skin is warm and dry. Few scattered flesh colored maculopapular lesions on arms. Faint erythematous macular rash posterior neck along hairline. Musculoskeletal: Normal range of motion, ambulatory without assist. Extremities: No distal edema noted. Neurological: Alert & oriented, no focal deficits. Heme: No cervical, supraclavicular, or inguinal adenopathy. Psych: Conversant, normal mood and affect. Vitals reviewed. BP 148/60 (Patient Position: Sitting) Pulse 67 Temp 36.7 ??C (98.1 ??F) (Temporal) Resp 18 Ht 178.2 cm (5' 10.16) Wt 98.6 kg (217 lb 6.4 oz) SpO2 99% BMI 31.05 kg/m?? Wt Readings from Last 3 Encounters: 08/27/21 98.6 kg (217 lb 6.4 oz) 08/07/21 97.6 kg (215 lb 3.2 oz) 07/16/21 94.8 kg (209 lb) Results: Recent Results (from the past 72 hour(s)) Comprehensive metabolic panel (non-fasting) Result Value Ref Range Glucose Lvl 115 65 - 199 mg/dL BUN 28 (H) 10 - 20 mg/dL Creatinine 1.67 (H) 0.80 - 1.50 mg/dL Sodium 139 135 - 145 mmol/L Potassium 4.7 3.5 - 5.0 mmol/L Chloride 104 98 - 107 mmol/L CO2 26 22 - 31 mmol/L Anion Gap 9 5 - 15 mmol/L Calcium 9.5 8.5 - 10.5 mg/dL Total Protein 7.4 6.1 - 8.0 g/dL Albumin 4.4 3.2 - 5.2 g/dL AST 308 (H) 0 - 39 unit/L ALT 707 (H) 0 - 55 unit/L Alk Phos 198 (H) 40 - 130 unit/L Total Bilirubin 0.6 0.2 - 1.3 mg/dL Estimated GFR 42 (L) >=60 mL/min/1.73 m?? TSH Result Value Ref Range TSH 3.83 0.27 - 4.20 mcIU/mL T4, free Result Value Ref Range Free T4 1.19 0.93 - 1.70 ng/dL Hemogram Result Value Ref Range WBC 6.1 4.0 - 9.5 x10(3)/mcL RBC 4.54 (L) 4.58 - 5.54 x10(6)/mcL Hemoglobin 13.0 (L) 13.7 - 16.5 g/dL Hematocrit 39.7 (L) 40.5 - 48.5 % MCV 87.4 82.9 - 93.1 fL MCH 28.6 27.5 - 32.1 pg MCHC 32.7 32.0 - 35.7 g/dL Platelets 187 145 - 357 x10(3)/mcL RDWSD 45.5 (H) 36.0 - 45.0 fL RDWCV 14.1 (H) 11.4 - 13.8 % MPV 9.4 7.6 - 12.9 fL nRBC % Auto 0.0 % nRBC Abs Auto 0.000 0.000 - 0.000 x10(3)/mcL Differential, Automated Result Value Ref Range Neutrophils % 60.2 % Neutr Abs (ANC) 3.65 1.70 - 6.10 x10(3)/mcL Lymphocytes % 24.1 % Lymphocytes Abs 1.5 0.9 - 3.2 x10(3)/mcL Monocytes % 10.9 % Monocyte Abs 0.7 0.3 - 0.9 x10(3)/mcL Eosinophils % 3.6 % Eosinophils Abs 0.2 0.0 - 0.4 x10(3)/mcL Basophils % 1.0 % Basophils Abs 0.1 0.0 - 0.1 x10(3)/mcL Immature Gran % 0.20 % Roro Gran Abs 0.01 0.00 - 0.04 x10(3)/mcL Pathology: No new [...] discuss adjuvant treatment options. Treatment: -08/07/21 started pembro We reviewed his diagnosis in detail and [...] Pt prefers to get labs at [facility]. We'll send orders and I'll ask our director of vocational guidance to f/u on results. Advised pt to avoid Tylenol and hold statin. He doesn't drink ETOH. I'll update PCP. Scheduled for f/u and CT w/Dr. Hou on 10/16/21. Rash flares: also likely related to pembro. Steroids will likely help. He's scheduled for routine f/u with Dr. Winter/Derm as well. Worsening renal function: unclear etiology - ?immune mediated. As noted, starting prednisone 100 mg/daily. Will re-check CMP in 2 days. Advised to push fluids. Mr. Tenorio asked appropriate questions and verbalized good understanding of and agreement with the plan. I encouraged him to call anytime with questions or concerns and he agreed. Plan: -HOLD pembro -HOLD atorvastatin -Start prednisone 100 mg/day -Re-check CMP in 2 days and determine steroid tapering Kelin Carlos APRN Oncology Time Attestation: I certify spending at least 55 minutes in providing care to this patient today 08/27/21 as reflectedby the following activities: - review of the medical record in the chart - discussing of medical decision making - documenting the outcome of today's visit as above documented in this encounter Plan of Treatment Upcoming Encounters Date Type Department Care Team (Late st Contact Info) Description 02/16/2024 9:15 AM EDT Laboratory Appointment Lab at [facility] Hematology Oncology [address] [place] [address] 02/16/2024 10:20 AM EDT Hospital Encounter CT Scan at [place] [phone] Mitali Griffiths APRN [facility] DR HEMATOLOGY [place] [address] 02/16/2024 1:30 PM EDT Office Visit Hematology and Oncology at [place] [phone] Albino Bartholomew MD [facility] DR HEMATOLOGY [place] [address] 04/17/2024 10:00 AM EST Office Visit Dermatology at [facility] [address] [place] [address] Oli Winter MD [address] [facility] [place] [address] documented as of this encounter Visit Diagnoses Diagnosis Toxic hepatitis Hepatitis, unspecified Renal cell carcinoma, unspecified laterality Elevated LFTs Other abnormal blood chemistry Renal function impairment Unspecified disorder of kidney and ureter Rash Rash and other nonspecific skin eruption documented in this encounter Care Teams Powerhouse Operator Relationship Specialty Start Date End Date Juan Dempsey MD [address] [place] [address] PCP - General Emergency Medicine 08/20/21 documented as of this encounter
--- OUTSIDE RECORDS SUMMARY | 2024-02-03 16:58 | XMS_ITS | Encounter Summary ---
Author Organization [facility] Address [facility] [place] [address] Care Team Prov[address] Care Rd Project Manager Name Role Phone Juan Dempsey MD Primary Care Provider Encounter Details Date Type Department Care Team (Late st Contact Info) Description 08/20/2021 Telephone [place] [phone] NehaAugust Social History Tobacco Use Types Packs/Day Years [...] encounter Miscellaneous Notes * Telephone Encounter - Janina Solomon - 08/20/2021 4:31 PM EDT Of note patient has had nephrectomy procedure * Telephone Encounter - Janina Solomon - 08/20/2021 4:22 PM EDT Cristofer Tenorio [id number] Diagnosis/Indication: SCREENING, POSITIVE COLOGARD 1. Have you ever had a/an Colonoscopy before? Yes: Date 2007 [facility] If yes, did you have any problems with the procedure? No What type of sedation was used: Other: UNKNOWN 2. Do you take any blood thinners or have you been diagnosed with a bleeding disorder that increases your risk of bleeding with procedures? No 3. Do you have a Pacemaker or Defibrillator device? No 4. Are you a diabetic? No 5. Do you have any Allergies to Eggs, Latex or Medications? No 6. Do you take any Oral Iron Supplements (Including multi-vitamins)? No 7. Do you have a history of three or more abdominal surgeries? No 8. Have you had a problem with sedation or anesthesia? No 9. Do you use a c-pap machine or oxygen tank? Neither 10. Do you take prescription narcotic pain medications, including suboxone or methodone? No 11. Do you have a preference regarding the gender of your provider? Yes: Female 12. Is there any other information you would like to us to note for the provider and nursing team who will perform your case? No 13. Say to patient: You must have a responsible democrat who will drive you to your procedure, stay [place] for the entire duration of your procedure, and drive you home from your procedure? *Please Verify the height and weight, and adjust if height and/or weight have changed* Estimated body mass index is 29.96 kg/m?? as calculated from the following: Height as of 08/07/21: 180.5 cm (5' 11.06). Weight as of 08/07/21: 97.6 kg (215 lb 3.2 oz). Age:66 y.o. documented in this encounter Plan of Treatment Upcoming Encounters Date Type Department Care Team (Late st Contact Info) Description 02/16/2024 9:15 AM EDT Laboratory Appointment Lab at [facility] Hematology Oncology [address] [place] [address] 02/16/2024 10:20 AM EDT Hospital [place] [phone] Mitali Griffiths APRN [facility] [address] [place] [address] 02/16/2024 1:30 PM EDT Office Visit Hematology [place] [phone] Albino Bartholomew MD [facility] DR [place] [address] 04/17/2024 10:00 AM EST Office Visit Dermatology at [facility] [address] [place] [phone] Oli Winter MD [address] [facility] [place] [address] documented as of this encounter Visit Diagnoses Not on filedocumented in this encounter Care Teams Rd Project Manager Relationship Specialty Start Date End Date Juan Dempsey MD [address] [place] [address] PCP - General Emergency Medicine 08/20/21 documented as of this encounter
--- OUTSIDE RECORDS SUMMARY | 2024-02-03 16:58 | XMS_ITS | Encounter Summary ---
Author Organization [facility] Address [facility] [place] [address] Care Team Providers Care Epitaxial Reactor Operator Name Role Phone Juan Dempsey MD Primary Care Provider [phone] Encounter Details Date Type Department Care Team (Late st Contact Info) Description 09/05/2021 Orders Only [place]ematology [place] [phone] Noemí Barba RN Renal cell carcinoma, unspecified laterality Social History [...] [facility] [place] On[place] [address] [place] [address] 02/16/2024 10:20 AM EDT Hospital [place] [phone] Mitali Griffiths APRN [facility] [address] HEMATOLOGY [place] [address] 02/16/2024 1:30 PM EDT Office Visit Hematology [place] [phone] Albino Bartholomew MD [facility] DR HEMATOLOGY [place] [address] 04/17/2024 10:00 AM EST Office Visit Dermatology at [facility] [address] [place] [address] Oli Winter MD [address] [facility] [address] Scheduled Orders Name Type Priority Associated Diagnoses Orde r Schedule Comprehensive metabolic panel (non-fasting) Lab STAT Renal cell carcinoma, unspecified laterality Expected: 09/08/2021 (Approximate), Expires: 03/10/2022 documented as of this encounter Visit Diagnoses Diagnosis Renal cell carcinoma, unspecified laterality documented in this encounter Care Teams Epitaxial Reactor Operator Relationship Specialty Start Date End Date Juan Dempsey MD [address] [place] [address] PCP - General Emergency Medicine 08/20/21 documented as of this encounter
--- OUTSIDE RECORDS SUMMARY | 2024-02-03 16:58 | XMS_ITS | Encounter Summary ---
Author Organization [facility] Address [facility] [place] [address] Care Team Providers Care Hotel Lobby Concierge Name Role Phone Juan Dempsey MD Primary Care Provider Encounter Details Date Type Department Care Team (Latest Contact Info) Description 08/27/2021 12:06 PM EDT - 08/27/2021 11:59 PM EDT Hospital Encounter [place]ology [place] [phone] Renal cell carcinoma, unspecified laterality; Medication management [...] taking 11/26/2021 predniSONE (Deltasone) 20 mg Tablet Take 5 tablets by mouth daily. Take in the morning with food 50 tablet 08/27/2021 09/17/2021 amLODIPine (Norvasc) 5 mg Tablet Take 5 [...] [facility] Hematology Oncology [address] [place] [address] 02/16/2024 10:20 AM EDT Hospital [place] [address] Mitali Griffiths APRN [facility] [address] HEMATOLOGY [place] [address] 02/16/2024 1:30 PM EDT Office Visit [place]ematology [place] [address] Albino Bartholomew MD [facility] DR HEMATOLOGY [place] [address] 04/17/2024 10:00 AM EST Office Visit Dermatology at [facility] [address] [place] [phone] Oli Winter MD [address] [facility] [address] documented as of this encounter Procedures Procedure Name Priority Date/Time Associated Diagnosis Comments HEMOGRAM STAT 08/27/2021 12:16 PM EDT Renal cell carcinoma, unspecified laterality Medication management DIFFERENTIAL, AUTOMATED STAT 08/27/2021 12:16 PM EDT Renal cell carcinoma, unspecified laterality Medication management HC CBC,PLT & AUTO DIFF STAT 12:16 PM EDT Renal cell carcinoma, unspecified laterality Medication management HC THYROID STIMULATING HORMONE, SERUM STAT 08/27/2021 12:16 PM EDT Renal cell carcinoma, unspecified laterality Medication management HC FREE THYROXINE (T4) STAT 12:16 PM EDT Renal cell carcinoma, unspecified laterality Medication management COMPREHENSIVE METABOLIC PANEL STAT 08/27/2021 12:16 PM EDT Renal cell carcinoma, unspecified laterality Medication management documented in this encounter Results * Differential, Automated (08/27/2021 12:16 PM EDT) Neutrophil % 60.2 % [facility] Neutrophil Absolute 3.65 1.70 - 6.10 x10(3)/[facility] Lymph % 24.1 % [facility] Lymphocytes Abs 1.5 0.9 - 3.2 x10(3)/[facility] Monocyte % 10.9 % [facility] Monocyte Abs 0.7 0.3 - 0.9 x10(3)/[facility] Eos % 3.6 % [facility] Eosinophils Abs 0.2 0.0 - 0.4 x10(3)/[facility] Basophil % 1.0 % [facility] Baso Absolute 0.1 0.0 - 0.1 x10(3)/[facility] Immature Gran % 0.20 % [facility] Comment: Immature granulocytes(IG's)percentage and absolute count will include metamyelocytes, myelocytes, and promyelocytes. Blood smears from CBCs yielding IG's will be scanned manually for concordance. If this scan disagrees with the automated IG or if promyelocytes are noted, a manual differential will be performed. Immature Gran Absolute 0.01 0.00 - 0.04 x10(3)/[facility] Blood 08/27/2021 12:1 6 PM EDT 08/27/2021 12:26 PM EDT Narrative Resulting Agency Comment Spec In Lab Kelin Carlos GENERAL ADJUSTER HEMATOLOGY ORDERAB LES [facility] [place] [address] * (ABNORMAL) Hemogram (08/27/2021 12:16 PM EDT) [facility] White Blood Cell 6.1 4.0 - 9.5 x10(3)/mc L [facility] Red Blood Cell 4.54(L) 4.58 - 5.54 x10(6)/ L [facility] Hemoglobin 13.0(L) 13.7 - 16.5 g/dL [facility] Hematocrit 39.7(L) 40.5 - 48.5 % [facility] Mean Cell Volume 87.4 82.9 - 93.1 [facility] Mean Cell Hemoglobin 28.6 27.5 - 32.1 pg [facility] Mean Cell Hemoglobin Concentration 32.7 32.0 - 35.7 g/dL [facility] Platelet 187 145 - 357 x10(3)/mc L [facility] RDW Standard Deviation 45.5(H) 36.0 - 45.0 [facility] RDW coefficient of variation 14.1(H) 11.4 - 13.8 % [facility] Mean Platelet Volume 9.4 7.6 - 12.9 [facility] NRBC% auto 0.0 % [facility] NRBC Absolute 0.000 0.000 - 0.000 x10(3)/ L [facility] Blood 08/27/2021 12:1 6 PM EDT 08/27/2021 12:26 PM EDT Narrative Resulting Agency Comment Spec In Lab Kelin Carlos GENERAL ADJUSTER HEMATOLOGY ORDERAB LES Performing Organization Address City/State/[facility] Co de Phone Number [facility] [place] [address] * T4, free (08/27/2021 12:16 PM EDT) Free T4 1.19 0.93 - 1.70 ng/dL [facility] Comment: Reference Interval (ng/dL): Females: ??First Trimester: 0.97-1.68 ??Second Trimester: 0.77-1.51 ??Third Trimester: 0.77-1.49 Blood 08/27/2021 12:1 6 PM EDT 08/27/2021 12:26 PM EDT Narrative Resulting Agency Comment Spec In Lab Kelin Carlos GENERAL ADJUSTER CHEMISTRY ORDERABL ES Performing Organization Address [facility] de Phone Number [facility] [place] [address] * TSH (08/27/2021 12:16 PM EDT) Thyroid Stimulating Hormone 3.83 0.27 - 4.20 mcIU/mL [facility] Comment: Reference Interval (mcIU/mL): Females: ??First Trimester: 0.23-3.88 ??Second Trimester: 0.22-3.90 ??Third Trimester: 0.44-4.66 Blood 08/27/2021 12:1 6 PM EDT 08/27/2021 12:26 PM EDT Narrative Resulting Agency Comment Spec In Lab Kelin Roach Carlos GENERAL ADJUSTER CHEMISTRY ORDERABL ES Performing Organization Address [facility] de Phone Number [facility] [place] [address] * (ABNORMAL) Comprehensive metabolic panel (non-fasting) (08/27/2021 12:16 PM EDT) Pathologist [facility] Glucose 115 65 - 199 mg/dL [facility] Comment:Diabetes: >=200 mg/d L plus symptoms Blood Urea Nitrogen 28(H) 10 - 20 mg/dL [facility] Creatinine 1.67(H) 0.80 - 1.50 mg/dL [facility] Sodium 139 135 - 145 mmol/L [facility] Potassium 4.7 3.5 - 5.0 mmol/L [facility] Comment: Please note: ??Patients with WBC >100,000 may have falsely elevated Potassium levels. ??For accurate Potassium quantification in these patients send serum separator tube (gold top) for subsequent determinations. ??Contact the Clinical Chemistry Laboratory if there are any questions. Chloride 104 98 - 107 mmol/L [facility] Carbon Dioxide 26 22 - 31 mmol/L [facility] Anion Gap 9 5 - 15 mmol/L [facility] Calcium 9.5 8.5 - 10.5 mg/dL [facility] Protein, Total 7.4 6.1 - 8.0 g/dL [facility] Albumin 4.4 3.2 - 5.2 g/dL [facility] Aspartate Aminotransferase 308(H) 0 - 39 unit/L [facility] Alanine Aminotransferase 707(H) 0 - 55 unit/L [facility] Alkaline Phosphatase 198(H) 40 - 130 unit/L [facility] Bilirubin, Total 0.6 0.2 - 1.3 mg/dL [facility] Est Glomerular Filtration Rate 42(L) >=60 mL/min/1. 73 m?? [facility] Comment: This patient? s estimated glomerular filtration rate (eGFR) is between 42 mL/min/1.73 m2 (patients with less muscle mass per kg body weight) and 49 mL/min/1.73 m2 (patients with more muscle mass [...] and symptoms in addition to eGFR. Blood 08/27/2021 12:1 6 PM EDT 08/27/2021 12:26 PM EDT Narrative Resulting Agency Comment Spec In Lab Kelin Carlos GENERAL ADJUSTER CHEMISTRY ORDERABL ES [facility] [place] [address] documented in this encounter Visit Diagnoses Diagnosis Renal cell carcinoma, unspecified laterality Medication management Encounter for long-term (current) use of other medications documented in this encounter Care Teams Hotel Lobby Concierge Relationship Specialty Start Date End Date Juan Dempsey MD [address] [place], [place] [id number] PCP - General Emergency Medicine 08/20/21 documented as of this encounter
--- OUTSIDE RECORDS SUMMARY | 2024-02-03 16:58 | XMS_ITS | Encounter Summary ---
Author Organization [facility] Address [facility] [place] [address] Care Team Providers Care Customer Quality Specialist Name Role Phone Lisbet Solitario MD Primary Care Provider [phone] Encounter Details Date Type Department Care Team (Late st Contact Info) Description 07/17/2021 Telephone [place]ematology [place] [address] Mary Collazo, RN Social History [...] Miscellaneous Notes * Telephone Encounter - Mary Collazo, RN - 07/17/2021 11:04 AM EDT Message received from elementary secretary: Shantal is going to see his dentist today to be measured for a crown replacement. He wants to make sure that he is ok to get that procedure before starting tx, and if weshould hold off starting until he is done (says it should take 3 weeks). Pt has not yet started treatment & plan is to start pembro. Pt is not receiving XGEVA. Call placed to pt to discuss. Advised that from an oncology perspective it is ok for him to have crown replaced. Encouraged him to call back to clinic with further questions or concerns. documented in this encounter Plan of Treatment Upcoming Encounters Date Type Department Care Team (Late st Contact Info) Description 02/16/2024 9:15 AM EDT Laboratory Appointment Lab at [facility] [place] Oncology [address] [place] [address] 02/16/2024 10:20 AM EDT Hospital [place] [address] Mitali Griffiths APRN [facility] DR HEMATOLOGY [place] [address] 02/16/2024 1:30 PM EDT Office Visit [place] [address] Albino Bartholomew MD [facility] DR HEMATOLOGY [place] [address] 04/17/2024 10:00 AM EST Office Visit Dermatology at [facility] [address] [place] [address] Oli Winter MD [address] [facility] [place] [address] documented as of this encounter Visit Diagnoses Not on filedocumented in this encounter Care Teams Customer Quality Specialist Relationship Specialty Start Date End Date Lisbet Solitario MD [address] [place] [address] PCP - General Family Medicine 01/30/16 08/19/21 documented as of this encounter
--- OUTSIDE RECORDS SUMMARY | 2024-02-03 16:58 | XMS_ITS | Encounter Summary ---
Author Organization [facility] Address [facility] [place] [address] Care Team Providers Care Machinist Apprentice Wood Name Role Phone Lisbet Solitario MD Primary Care Provider [phone] Encounter Details Date Type Department Care Team (Latest Contact Info) Description 08/07/2021 8:59 AM EDT - 08/07/2021 9:00 AM EDT Hospital Encounter Hematology [place] [phone] Renal cell carcinoma, unspecified laterality; Medication management [...] [facility] Hematology Oncology [address] [place] [address] 02/16/2024 10:20 AM EDT Hospital [place] [phone] Mitali Griffiths APRN [facility] [place] [address] 02/16/2024 1:30 PM EDT Office Visit Hematology [place] [address] Albino Bartholomew MD [facility] [place] [address] 04/17/2024 10:00 AM EST Office Visit Dermatology at [address] [place] [address] Oli Winter MD [address] [facility] [place] [address] documented as of this encounter Procedures Procedure Name Priority Date/Time Associated Diagnosis Comments HEMOGRAM STAT 08/07/2021 9:11 AM EDT Renal cell carcinoma, unspecified laterality Medication management DIFFERENTIAL, AUTOMATED STAT 08/07/2021 9:11 AM EDT Renal cell carcinoma, unspecified laterality Medication management HC CBC,PLT & AUTO DIFF STAT 9:11 AM EDT Renal cell carcinoma, unspecified laterality Medication management HC THYROID STIMULATING HORMONE, SERUM STAT 08/07/2021 9:11 AM EDT Renal cell carcinoma, unspecified laterality Medication management HC VENIPUNCTURE STAT 08/07/2021 9:11 AM EDT Renal cell carcinoma, unspecified laterality Medication management COMPREHENSIVE METABOLIC PANEL STAT 08/07/2021 9:11 AM EDT Renal cell carcinoma, unspecified laterality Medication management documented in this encounter Results * Differential, Automated (08/07/2021 9:11 AM EDT) Neutrophil % 71.7 % [facility] Neutrophil Absolute 5.40 1.70 - 6.10 x10(3)/[facility] Lymph % 18.1 % [facility] Lymphocytes Abs 1.4 0.9 - 3.2 x10(3)/[facility] Monocyte % 5.4 % [facility] Monocyte Abs 0.4 0.3 - 0.9 x10(3)/[facility] Eos % 2.9 % [facility] Eosinophils Abs 0.2 0.0 - 0.4 x10(3)/[facility] Basophil % 1.5 % [facility] Baso Absolute 0.1 0.0 - 0.1 x10(3)/[facility] Immature Gran % 0.40 % [facility] Comment: Immature granulocytes(IG's)percentage and absolute count will include metamyelocytes, myelocytes, and promyelocytes. Blood smears from CBCs yielding IG's will be scanned manually for concordance. If this scan disagrees with the automated IG or if promyelocytes are noted, a manual differential will be performed. Immature Gran Absolute 0.03 0.00 - 0.04 x10(3)/[facility] Blood 08/07/2021 9:11 AM EDT 08/07/2021 9:33 AM EDT Narrative Resulting Agency Comment Spec In Lab Jose Awad DO HEMATOLOGY ORDERABLE S Performing Organization Address City/State/[facility] Co de Phone Number [facility] [place] [address] * (ABNORMAL) Hemogram (08/07/2021 9:11 AM EDT) White Blood Cell 7.5 4.0 - 9.5 x10(3)/mc L [facility] Red Blood Cell 4.85 4.58 - 5.54 x10(6)/mc L [facility] Hemoglobin 13.9 13.7 - 16.5 g/dL [facility] Hematocrit 42.6 40.5 - 48.5 % [facility] Mean Cell Volume 87.8 82.9 - 93.1 fL [facility] Mean Cell Hemoglobin 28.7 27.5 - 32.1 pg [facility] Mean Cell Hemoglobin Concentration 32.6 32.0 - 35.7 g/dL [facility] Platelet 213 145 - 357 x10(3)/mc L [facility] RDW Standard Deviation 45.5(H) 36.0 - 45.0 fL [facility] RDW coefficient of variation 14.3(H) 11.4 - 13.8 % [facility] Mean Platelet Volume 9.5 7.6 - 12.9 fL [facility] NRBC% auto 0.0 % [facility] NRBC Absolute 0.000 0.000 - 0.000 x10(3)/mc L [facility] Blood 08/07/2021 9:11 AM EDT 08/07/2021 9:33 AM EDT Narrative Resulting Agency Comment Spec In Lab Jose Awad DO HEMATOLOGY ORDERABLE S [facility] [place] [address] * (ABNORMAL) Comprehensive metabolic panel (non-fasting) (08/07/2021 9:11 AM EDT) Glucose 124 65 - 199 mg/dL [facility] Comment:Diabetes: >=200 mg/d L plus symptoms Blood Urea Nitrogen 24(H) 10 - 20 mg/dL [facility] Creatinine 1.28 0.80 - 1.50 mg/dL [facility] Sodium 140 135 - 145 mmol/L [facility] Potassium 4.0 3.5 - 5.0 mmol/L [facility] [...] [facility] Anion Gap 10 5 - 15 mmol/L [facility] Calcium 9.7 8.5 - 10.5 mg/dL [facility] Protein, Total 7.8 6.1 - 8.0 g/dL [facility] Albumin 4.4 3.2 - 5.2 g/dL [facility] Aspartate Aminotransferase 23 0 - 39 unit/L [facility] Alanine Aminotransferase 49 0 - 55 unit/L [facility] Alkaline Phosphatase 153(H) 40 - 130 unit/L [facility] Bilirubin, Total 0.3 0.2 - 1.3 mg/dL [facility] Est Glomerular Filtration Rate 58(L) >=60 mL/min/1. 73 m?? [facility] [...] Lab Albino Bartholomew MD CHEMISTRY ORDERABLES [facility] [place] [address] * (ABNORMAL) TSH (08/07/2021 9:11 AM EDT) Thyroid Stimulating Hormone 5.28(H) 0.27 - 4.20 mcIU/mL [facility] Comment: Reference Interval (mcIU/mL): Females: ??First Trimester: 0.23-3.88 ??Second Trimester: 0.22-3.90 ??Third Trimester: 0.44-4.66 Blood 08/07/2021 9:11 AM EDT 08/07/2021 9:33 AM EDT Narrative Resulting Agency Comment Spec In Lab Albino Bartholomew MD CHEMISTRY ORDERABLES Performing Organization Address [facility] Co de Phone Number [facility] [place] [address] * T4, free (08/07/2021 9:11 AM EDT) Free T4 1.32 0.93 - 1.70 ng/dL [facility] Comment: Reference Interval (ng/dL): Females: ??First Trimester: 0.97-1.68 ??Second Trimester: 0.77-1.51 ??Third Trimester: 0.77-1.49 Blood 08/07/2021 9:11 AM EDT 08/07/2021 9:33 AM EDT Narrative Resulting Agency Comment Spec In Lab Albino Bartholomew MD CHEMISTRY ORDERABLES Performing Organization Address [facility] Co de Phone Number [facility] [place] [address] documented in this encounter Visit Diagnoses Diagnosis Renal cell carcinoma, unspecified laterality Medication management Encounter for long-term (current) use of other medications documented in this encounter Care Teams Machinist Apprentice Wood Relationship Specialty Start Date End Date Lisbet Solitario MD [address] [place] [address] PCP - General Family Medicine 01/30/16 08/19/21 documented as of this encounter
--- OUTSIDE RECORDS SUMMARY | 2024-02-03 16:58 | XMS_ITS | Encounter Summary ---
Author Organization [facility] Address [facility] [place] [address] Care Team Providers Care Cooling Tower Technician Name Role Phone Juan Dempsey MD Primary Care Provider [phone] Encounter Details Date Type Department Care Team (Late st Contact Info) Description 09/17/2021 Orders Only Hematology [place] [phone] Albino Bartholomew MD [facility] [place] [address] Social History Tobacco Use Types Packs/Day Years [...] [facility] Hematology Oncology [address] [place] [address] 02/16/2024 10:20 AM EDT Hospital [place] [address] Mitali Griffiths APRN [facility] [address] [place] [address] 02/16/2024 1:30 PM EDT Office Visit Hematology [place] [phone] Albino Bartholomew MD [facility] [place] [address] 04/17/2024 10:00 AM EST Office Visit Dermatology at [facility] [address] [place] [address] Oli Winter MD [address] [facility] [address] documented as of this encounter Visit Diagnoses Not on filedocumented in this encounter Care Teams Cooling Tower Technician Relationship Specialty Start Date End Date Juan Dempsey MD [address] [place] [address] PCP - General Emergency Medicine 08/20/21 documented as of this encounter
--- OUTSIDE RECORDS SUMMARY | 2024-02-03 16:58 | XMS_ITS | Encounter Summary ---
Author Organization [facility] Address [place] [address] Care Team Providers Care Window Decorator Name Role Phone Juan Dempsey MD Primary Care Provider [phone] Encounter Details Date Type Department Care Team (Late st Contact Info) Description 09/04/2021 Telephone Hematology [place] [address] Mary Collazo, RN Social History [...] Telephone Encounter - Mary Collazo, RN - 09/04/2021 2:45 PM EDT Message received from escrow secretary: Triage- F/U CMP 09/04 [facility]. Pred 60 09/02-09/04. Following LFT's & BUN/Cret. Lab results received, entered into EDH & reviewed with Jennifer Carlos APRN. Per Jennifer Carlos APRN: Have pt taper prednisone to 40 mg po daily for 3 days. Repeat CMP 09/08 @ [facility]. Further prednisone taper as follows: Prednisone 40 mg po 09/05-09/07 Prednisone 20 mg po 09/08-09/10 Prednisone 10 mg po 09/11-09/13 Call placed to pt with plan. Reviewed labs & let him know LFT's continue to improve. Instructedpt to taper prednisone to 40 mg po daily starting tomorrow & continue on this dose x 3 days (09/05-09/07). Repeat CMP [facility] 09/08 & taper prednisone to 20 mg po daily x 3 days (09/08-09/10) if LFT's continue to improve. Repeat CMP 09/10. Pt verbalized understanding. Message sent to escrow secretary to request order for CMP to be faxed to [facility] for 09/08. Triage nurse to f/uon results. documented in this encounter Plan of Treatment Upcoming Encounters Date Type Department Care Team (Late st Contact Info) Description 02/16/2024 9:15 AM EDT Laboratory Appointment Lab at [facility] Hematology Oncology [address] [place] [address] 02/16/2024 10:20 AM EDT Hospital [place] [address] Mitali Griffiths APRN [facility] [address] [place] [address] 02/16/2024 1:30 PM EDT Office Visit Hematology [place] [address] Albino Bartholomew MD [facility] [address] [place] [address] 04/17/2024 10:00 AM EST Office Visit Dermatology at [facility] [address] [place] [address] Oli Winter MD [address] [facility] [place] [address] documented as of this encounter Procedures Procedure Name Priority Date/Time Associated Diagnosis Comments COMPREHENSIVE METABOLIC PANEL Routine 09/04/2021 9:30 AM EDT documented in this encounter Results * (ABNORMAL) Comprehensive metabolic panel (non-fasting) (09/04/2021 9:30 AM EDT) Glucose 171(A) 74 - 106 Blood Urea Nitrogen 32(A) 7 - 18 Creatinine 1.6(A) 0.70 - 1.30 Sodium 140 136 - 145 Potassium 3.6 3.5 - 5.1 Chloride 104 98 - 107 Carbon Dioxide 28 21 - 32 Calcium 8.4(A) 8.5 - 10.1 Protein, Total 7.1 6.4 - 8.2 Albumin 3.4 3.4 - 5 Bilirubin, Total 0.4 0.2 - 1.0 Alkaline Phosphatase 137(A) 46 - 116 Aspartate Aminotransferase 35 15 - 37 Alanine Aminotransferase 274(A) 16 - 63 Blood 09/04/2021 9:30 AM EDT Historical Provider CHEMISTRY ORDERAB LES documented in this encounter Visit Diagnoses Not on filedocumented in this encounter Care Teams Window Decorator Relationship Specialty Start Date End Date Juan Dempsey MD [address] [place] [address] PCP - General Emergency Medicine 08/20/21 documented as of this encounter
--- OUTSIDE RECORDS SUMMARY | 2024-02-03 16:58 | XMS_ITS | Encounter Summary ---
Author Organization [facility] Address [facility] [place] [address] Care Team Providers Care Produce Specialist Name Role Phone Lisbet Solitario MD Primary Care Provider [phone] Reason for Visit * Reason Comments Follow-up Encounter Details Date Type Department Care Team (Late st Contact Info) Description 08/07/2021 10:00 AM EDT Office Visit Hematology [place] [address] Kelin Carlos, ARTS MANAGER [facility] DR [place] [address] Renal cell carcinoma, unspecified laterality; Immunotherapy encounter Social History Tobacco Use Types Packs/Day Years [...] Sign Reading Time Taken Comments Blood Pressure 165/81 08/07/2021 9:48 AM EDT Pulse 73 08/07/2021 9:48 AM EDT Temperature 36 ??C (96.8 ??F) 08/07/2021 9:48 AM EDT Respiratory Rate 17 08/07/2021 9:48 AM EDT Oxygen Saturation 97% 08/07/2021 9:48 AM EDT Inhaled Oxygen Concentration - - Weight 97.6 kg (215 lb 3.2 oz) 08/07/2021 9:48 A M EDT Height 180.5 cm (5' 11.06) 08/07/2021 9:48 AM E DT Body Mass Index 29.96 08/07/2021 9:48 AM EDT documented in this encounter Progress Notes * Kelin Carlos, MARTITA - 08/07/2021 10:00 AM EDT PATIENT ID: Cristofer Tenorio is a male 66 y.o. with a history of renal cell carcinoma s/p nephrectomy who presents today for immunotherapy teaching and is accompanied by his , Emily. The plan is for adjuvant pembro given every 3 weeks for up to a year. The following information was reviewed with the patient and family. Antitumor Therapy Schedule: Pembrolizumab once every 3 weeks Laboratory Tests: CBC, CMP, TSH, Free T4 Provider Visits: Every 3 weeks with lab work prior to infusion therapy Possible Side Effects include, but are not limited to: Pembrolizumab: side effects include but are not limited to low blood counts (decrease in red blood cells, resulting in anemia), fatigue, infusion reaction, skin reactions or rash (redness, blistering, peeling or loosening of the skin, including inside the mouth), increased liver enzymes, constipation or diarrhea, shortness of breath, nausea, vomiting, swelling, itching, electrolyte abnormalities,dizziness, joint or muscle pain, thyroid dysfunction, headaches. A serious but uncommon side effectmay be an immune-mediated reaction. When this side effect occurs, it affects primarily the bowels, liver, skin, nerves and the endocrine system Plan: Cristofer was given written information regarding immunotherapy regimen, side effects and management strategies. He was given an opportunity to ask questions and verbalized understanding of the information and treatment plan. No barriers to learning were identified. He was counseled on how to call for any further questions or concerns. ??? Immunotherapy is scheduled to begin today ??? Testing/Diagnostics o Baseline blood work was reviewed and is adequate for treatment ??? Supportive Care: o Do not take antidiarrheal for diarrhea- patient must call to evaluate further o Nutrition: Informed re availability of Fabric Designer prn for diet/nutrition concerns. 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 o Informed re availability of AUTOMOBILE ASSEMBLER and Psych to assist with any additional psychosocial concerns, anxiety, depression, sleep, etc concerns, barriers to care, assistance with ADs, etc. o Coping with Serious Illness: Discussed impact of cancer diagnosis on mental and physical health. Informed re availability of Psych and Pall Care teams prn. o Advance Directive: He has completed AD, has a copy, will ask police department secretary to scan into eD. Advised re availability of SW prn updates needed. o Of note: o baseline rash L foot, off and on x 1 year; applies Gold Valdez cream w/effect. Scheduled to see Derm in October for annual skin check. o Baseline L LE mild edema s/p Achilles tendon surgery years ago ??? Follow up: Return to clinic on 08/27/21 for next cycle of treatment. Post-tx f/u call with sighter next week. Time Attestation: I certify spending at least 75 minutes in providing care to this patient today 08/07/21 as reflected by the following activities: - review of the medical record in the chart - discussing of medical decision making - documenting the outcome of today's visit as above documented in this encounter Plan of Treatment Upcoming Encounters Date Type Department Care Team (Late st Contact Info) Description 02/16/2024 9:15 AM EDT Laboratory Appointment Lab at [facility] Hematology Oncology [address] [place] [address] 02/16/2024 10:20 AM EDT Hospital [place] [address] Mitali Griffiths APRN [facility] DR [place] [address] 02/16/2024 1:30 PM EDT Office Visit Hematology [place] [address] Albino Bartholomew MD [facility] DR [place] [address] 04/17/2024 10:00 AM EST Office Visit Dermatology at [facility] [address] [place] [address] Oli Winter MD [address] [facility] [address] documented as of this encounter Visit Diagnoses Diagnosis Renal cell carcinoma, unspecified laterality Immunotherapy encounter Reserved for inherently not codable concepts WITHOUT codable children documented in this encounter Care Teams Produce Specialist Relationship Specialty Start Date End Date Lisbet Solitario MD [address] [place] [address] PCP - General Family Medicine 01/30/16 08/19/21 documented as of this encounter
--- OUTSIDE RECORDS SUMMARY | 2024-02-03 16:58 | XMS_ITS | Encounter Summary ---
Author Organization [facility] Address [facility] [place] [address] Care Team Providers Care Media Arts Professor Name Role Phone Juan Dempsey MD Primary Care Provider [phone] Encounter Details Date Type Department Care Team (Late st Contact Info) Description 09/01/2021 Telephone Hematology [place] [address] Mary Collazo, RN Social History [...] Telephone Encounter - Mary Collazo, RN - 09/01/2021 7:26 AM EDT Follow-up: [facility] 09/01 [facility]. Following LFT's. 100 mg/day x 3 days (08/27-08/29) 80 mg/day x 3 days (08/30-09/01) 60 mg/day x 3 days (09/02-09/04) Lab results received, entered into ED-H & sent to provider to review. LFT's improving & BUN/Creat improved. Confirmed with Jennifer Carlos APRN that it is ok to proceed with prednisone taper as planned with pt tapering to 60 mg po daily starting tomorrow. Repeat CMP 09/04. Call placed to pt to review labs. Let him know LFT's & kidney function continue to improve. Confirmed that today is day 3 of prednisone 80 mg daily. Instructed to taper to 60 mg po daily startingtomorrow & continue this dose x 3 days (09/02- 09/04). Repeat CMP 09/04 @ [facility] & triage nurse willf/u on results. Reinforced to pt to continue to push po fluids. Pt verbalized agreement with plan and knows to call clinic with any concerns and/or questions. Message sent to executive secretary social welfare to request order for CMP to be faxed to [facility] for 09/04. documented in this encounter Plan of Treatment Upcoming Encounters Date Type Department Care Team (Late st Contact Info) Description 02/16/2024 9:15 AM EDT Laboratory Appointment Lab at [facility] [place] Oncology [address] [place] [address] 02/16/2024 10:20 AM EDT Hospital [place] [address] Mitali Griffiths APRN [facility] [place] [address] 02/16/2024 1:30 PM EDT Office Visit [place]ematology [place] [address] Albino Bartholomew MD [facility] [place] [address] 04/17/2024 10:00 AM EST Office Visit Dermatology at [facility] [address] [place] [address] Oli Winter MD [address] [facility] [place] [address] documented as of this encounter Procedures Procedure Name Priority Date/Time Associated Diagnosis Comments COMPREHENSIVE METABOLIC PANEL Routine 09/01/2021 9:09 AM EDT documented in this encounter Results * (ABNORMAL) Comprehensive metabolic panel (non-fasting) (12/22/2021 8:30 AM EDT) Glucose 147 65 - 199 mg/dL [facility]ORY Comment:Diabetes: >=200 mg/d L plus symptoms Blood Urea Nitrogen 24(H) 10 - 20 mg/dL [facility] Creatinine 1.25 0.80 - 1.50 mg/dL [facility] Sodium 143 135 - 145 mmol/L [facility] Potassium 3.8 3.5 - 5.0 mmol/L [facility] Comment: Please note: ??Patients with WBC >100,000 may have falsely elevated Potassium levels. ??For accurate Potassium quantification in these patients send serum separator tube (gold top) for subsequent determinations. ??Contact the Clinical Chemistry Laboratory if there are any questions. Chloride 103 98 - 107 mmol/L [facility] Carbon Dioxide 29 22 - 31 mmol/L [facility] Anion Gap 11 5 - 15 mmol/L [facility] Calcium 9.4 8.5 - 10.5 mg/dL [facility] Protein, Total 6.9 6.1 - 8.0 g/dL [facility] Albumin 4.0 3.2 - 5.2 g/dL [facility] Aspartate Aminotransferase 16 0 - 39 unit/L [facility] Alanine Aminotransferase 21 0 - 55 unit/L [facility] Alkaline Phosphatase 111 40 - 130 unit/L [facility] Bilirubin, Total 0.5 0.2 - 1.3 mg/dL [facility] Est Glomerular Filtration Rate 64 >=60 mL/min/1. 73 m?? [facility] Comment: This patient's estimated GFR was [...] Agency Comment Spec In Lab Kelin Carlos MECHANICAL APPLICATIONS ENGINEER CHEMISTRY ORDERABL ES [facility] [address] [place] [address] * (ABNORMAL) Comprehensive metabolic panel (non-fasting) (09/01/2021 9:09 AM EDT) Glucose 179(A) 74 - 106 Blood Urea Nitrogen 31(A) 7 - 18 Creatinine 1.4(A) 0.70 - 1.30 Sodium 139 136 - 145 Potassium 3.9 3.5 - 5.1 Chloride 105 98 - 107 Carbon Dioxide 26 21 - 32 Calcium 8.6 8.5 - 10.1 Protein, Total 7.3 6.4 - 8.2 Albumin 3.6 3.4 - 5 Bilirubin, Total 0.3 0.2 - 1 Alkaline Phosphatase 158(A) 46 - 116 Aspartate Aminotransferase 67(A) 15 - 37 Alanine Aminotransferase 473(A) 16 - 63 Blood 09/01/2021 9:09 AM EDT Historical Provider MD CHEMISTRY ORDERAB LES documented in this encounter Visit Diagnoses Diagnosis Elevated LFTs Other abnormal blood chemistry documented in this encounter Care Teams Media Arts Professor Relationship Specialty Start Date End Date Juan Dempsey MD [address] [place] [address] PCP - General Emergency Medicine 08/20/21 documented as of this encounter
--- OUTSIDE RECORDS SUMMARY | 2024-02-03 16:58 | XMS_ITS | Encounter Summary ---
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 Starting him on pred 100 mg/day today. Needs torepeat CMP at [facility] on Wednesday am (external orders in). Daxa, can you put him on for f/u of labs and then a call to see how he's feeling. If LFTs coming down and he's feeling okay, we'll start a taper, hopefully as follows, but please let me know on Wednesday: 100 mg/day x 3 days (08/27-08/29) 80 mg/day x 3 days (08/30-09/01) 60 mg/day x 3 days (09/02-09/04) Lab results received, entered into EDH & sent to provider to review. Per Jennifer Carlos, EMERGENCY PREPAREDNESS COORDINATOR: Some improvement on LFTs - let's taper to 80 mg/day x 3 days (Sat, Wed, Wed) and repeat CMP on Wednesday at [facility]. I'll put in order now. Also, please advise him to push fluids. kidney function better but could be improved. Call placed to pt to review labs. Spoke to pt & let him know LFT's are starting to come down. Instructed pt to taper prednisone to 80 mg po daily starting 08/30 & to continue this dose through09/01. Also let him know his kidney function remains elevated & reinforced the importance of pushing po fluids with a goal of 64 oz of fluid per day. He will have labs 09/01 @ [facility]. Triage nurse to f/u on results & call pt with results & plan for prednisone taper. Encouraged pt to call backwith any new symptoms, questions or concerns & he is in agreement. documented in this encounter Plan of Treatment Upcoming Encounters Date Type Department Care Team (Late st Contact Info) Description 02/16/2024 9:15 AM EDT Laboratory Appointment Lab at [facility] Hematology Oncology [address] [place] [address] 02/16/2024 10:20 AM EDT Hospital Encounter CT Scan at [place] [id number] Mitali Griffiths APRN [facility] DR HEMATOLOGY [place] [address] 02/16/2024 1:30 PM EDT Office Visit Hematology [place] [phone] Albino Bartholomew MD [facility] [address] [place] [address] 04/17/2024 10:00 AM EST Office Visit Dermatology at [facility] [address] [place] [address] Oli Winter MD [address] [facility] [place] [address] documented as of this encounter Procedures Procedure Name Priority Date/Time Associated Diagnosis Comments COMPREHENSIVE METABOLIC PANEL Routine 08/29/2021 8:36 AM EDT documented in this encounter Results * (ABNORMAL) Comprehensive metabolic panel (non-fasting) (08/29/2021 8:36 AM EDT) Glucose 157(A) 74 - 106 Blood Urea Nitrogen 38(A) 7 - 18 Creatinine 1.5(A) 0.70 - 1.30 Sodium 140 136 - 145 Potassium 3.8 3.5 - 5.1 Chloride 105 98 - 107 Carbon Dioxide 26 21 - 32 Calcium 8.9 8.5 - 10.1 Protein, Total 8.0 6.4 - 8.2 Albumin 3.8 3.4 - 5 Bilirubin, Total 0.4 0.2 - 1.0 Alkaline Phosphatase 188(A) 46 - 116 Aspartate Aminotransferase 162(A) 15 - 37 Alanine Aminotransferase 779(A) 16 - 63 Blood 08/29/2021 8:36 AM EDT Historical Provider CHEMISTRY ORDERAB LES documented in this encounter Visit Diagnoses Not on filedocumented in this encounter Care Teams Tankroom Tender Relationship Specialty Start Date End Date Juan Dempsey MD [address] [place] [address] PCP - General Emergency Medicine 08/20/21 documented as of this encounter
--- OUTSIDE RECORDS SUMMARY | 2024-02-03 16:58 | XMS_ITS | Encounter Summary ---
Author Organization Formerly [facility] Address [facility] [place] [address] Care Team Providers Care Physician Office Assistant Name Role Phone Lisbet Solitario MD Primary Care Provider [phone] Reason for Referral * Diagnostic Test (Routine) - Closed Specialty Diagnoses / Procedures Referred By Contac t Referred To Contact Radiology Diagnoses Renal cell carcinoma, unspecified laterality Procedures CT Chest Abdomen Pelvis w Contrast (Generic) Jose Awad, [facility] DR HEMATOLOGY/[place] [address] [facility] [place] [address] Referral ID Status Reason Start Date Expiration Date V isits Requested Visits Authorized [id number] Closed Specialty Service Requested 07/16/2021 01/16/2023 1 1 Reason for Visit * Reason Comments Establish Care * Consultation (Routine) - Closed Specialty Diagnoses / Procedures Referred By Contac t Referred To Contact Hematology and Oncology Diagnoses Renal cell carcinoma, unspecified laterality Jordan Hou MD [facility] [place] [address] [facility] Hem Onc [address] [place] [address] Referral ID Status Reason Start Date Expiration Date V isits Requested Visits Authorized [id number] Closed Consult, Test & Treat 07/07/2021 07/07/2022 1 1 Encounter Details Date Type Department Care Team (Late st Contact Info) Description 07/16/2021 10:30 AM EDT Office Visit Hematology [place] [address] Albino Bartholomew MD [facility] DR [place] [address] Jose Awad DO [facility] HEMATOLOGY/[place] [address] Kelin Carlos APRN [facility] [place] [address] Renal cell carcinoma, unspecified laterality Social History [...] Sign Reading Time Taken Comments Blood Pressure 185/87 07/16/2021 10:47 AM EDT Pulse 79 07/16/2021 10:47 AM EDT Temperature - - Respiratory Rate 17 07/16/2021 10:47 AM EDT Oxygen Saturation 98% 07/16/2021 10:47 AM EDT Inhaled Oxygen Concentration - - Weight 94.8 kg (209 lb) 07/16/2021 10:47 AM EDT Height 181.6 cm (5' 11.5) 07/16/2021 10:47 AM E DT Body Mass Index 28.75 07/16/2021 10:47 AM EDT documented in this encounter Progress Notes * Jose Awad, - 07/16/2021 10:30 AM EDT Images from the original note were not included. [facility] Oncology - New Patient Visit History of Present Illness: Mr. Tenorio [...] fevers, chills, recent infections or infectious symptoms. Patient Active Problem List Diagnosis Code ??? Renal mass N28.89 ??? Renal cell carcinoma C64.9 ??? Medication management Z79.899 PMH, PSH, and current medications reviewed, as documented in the electronic medical record. Current Outpatient Medications on File Prior to Visit Medication Sig Dispense Refill ??? amLODIPine (Norvasc) 5 mg Tablet Take 5 mg by mouth daily. ??? acetaminophen (Tylenol) 325 mg Tablet Take 2-3 tablets by mouth every 6 hours as needed for Pain. ??? losartan (COZAAR) 100 mg Tablet Take 100 mg by mouth daily. ??? atorvastatin (LIPITOR) 20 mg Tablet Take 20 mg by mouth daily. ??? polyethylene glycoL (Miralax) 17 gram Powder in Packet Take 17 g by mouth daily as needed. (Patient not taking: Reported on 07/16/2021) No current facility-administered medications on file prior to visit. 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 HEENT: Anicteric, oropharynx clear. Neck: Supple, no masses. Chest: Non-labored breathing, clear lungs bilaterally. Cardiac: Regular rate and rhythm, no lower extremity edema. ABD: Non-tender, non-distended. Incision healing well; no e/o infection Lymph: No cervical or supraclavicular adenopathy. Neuro: Normal strength, cranial nerves grossly intact. Psych: Normal affect. Skin: No rashes and no bruising. Results: Recent Labs 06/27/21 0134 06/26/21 0131 06/25/21 0141 WBC 5.8 6.1 7.0 HGB 9.6* 8.6* 8.9* HCT 29.7* 26.5* 27.4* PLATELET 199 166 154 Recent Labs 06/27/21 0134 06/26/21 0131 06/25/21 0141 NA 140 138 137 K 3.7 4.0 4.5 CL 106 108* 107 CO2 27 23 23 BUN 19 18 21* CREATININE 1.22 1.11 1.32 Recent Labs 06/23/21 0710 AST 20 ALT 30 ALKPHOS 129 BILITOT 0.6 Pathology: Tumor Focality: ??Unifocal ?Tumor Site: ??Middle; ??Lower [...] (pT): ??pT3a ?Regional Lymph Nodes (pN): ??pN1 Imagin05/29/21 CT chest wo contrast 1. Solitary 3 mm nodule in the apex of the right lung. 2. No suspicious lytic lesions in the bones. 05/20/21 CT ABD/Pelvis Assessment: Raymundo Tenorio is a 66 [address] Dr[address] 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 We reviewed his diagnosis in detail and [...] of metastatic disease would impact our recommendations. ?? Plan to proceed with adjuvant Pembrolizumab 200mg q2ywuwl x [address] chest, abd, pelvis prior to starting for new baseline Elevated BP is being managed by PCP; recently started second agent (Amlodipine) rtc in 2 weeks to start therapy Jose Awad DO Hematology/Oncology Fellow Pager: [phone] Oncology Attending Addendum I personally reviewed the history, examined the patient, reviewed relevant labs and viewed recent radiographic images. I directly participated in management decisions. My exam and assessment concur with Dr. Awad. Please refer to his comprehensive note for details. Mr. Tenorio is 66 years old gentleman with left renal cell carcinoma, clear- cell type type, T3AN1. He underwent radical nephrectomy. We discussed benefits and the risk of adjuvant pembrolizumab for 1 year. A total of 496 patients were randomly assigned to receive pembrolizumab, and 498 to receive placebo. At the prespecified interim analysis, the median time from randomization to the data-cutoff date was 24.1 months. Pembrolizumab therapy was associated with significantly longer disease-free survivalthan placebo (disease- free survival at 24 months, 77.3% vs. 68.1%; hazard ratio for recurrence or de ath, 0.68; 95% confidence interval [CI], 0.53 to 0.87; P=0.002 [two-sided]). The estimated percentage of patients who remained alive at 24 months was 96.6% in the pembrolizumab group and 93.5% in theplacebo group (hazard ratio for , 0.54; 95% CI, 0.30 to 0.96). Grade 3 or higher adverse events of any cause occurred in 32.4% of the patients who received pembrolizumab and in 17.7% of those who received placebo. No deaths related to pembrolizumab therapy occurred. CONCLUSIONS Pembrolizumab treatment led to a significant improvement in disease-free survival as compared with placebo after surgery among patients with kidney cancer who were at high risk for recurrence. (Funded by [employer] a [employer] of [employer]; [id number]) We discussed side effects of immunotherapy which include but not limited to fatigue, immune mediated thyroiditis, colitis, hepatitis, pneumonitis, skin itching, rash. All questions were answered to patient satisfaction. He is interested to proceed with pembrolizumab. Informed verbal consent was obtained. We will start treatment within the next 2-3 weeks. Will obtain new baseline CT scan chest abdomen pelvis. Albino Bartholomew MD Hematology/Oncology Section, [facility] Headliner Installerknocker out, [facility] [phone] documented in this encounter Plan of Treatment Upcoming Encounters Date Type Department Care Team (Late st Contact Info) Description 02/16/2024 9:15 AM EDT Laboratory Appointment Lab at [facility] Hematology Oncology [address] [place] [address] 02/16/2024 10:20 AM EDT Hospital [place] [phone] Mitali Griffiths APRN [facility] HEMATOLOGY [place] [address] 02/16/2024 1:30 PM EDT Office Visit Hematology [place] [phone] Albino Bartholomew MD [facility] HEMATOLOGY [place] [address] 04/17/2024 10:00 AM EST Office Visit Dermatology at [place] [address] [place] [address] Oli Winter MD [address] [facility] [address] documented as of this encounter Results * [...] who have questions please contact the health home health care social worker that requested your imaging first. ? Narrative 07/20/2021 1:26 PM EDT EXAMINATION: CT [...] patients who have questions please contactthe health home health care social worker that requested your imaging first. Albino Bartholomew MD IMG CT ORDERABLES documented in this encounter Visit Diagnoses Diagnosis Renal cell carcinoma, unspecified laterality Renal cell carcinoma, unspecified laterality documented in this encounter Care Teams Physician Office Assistant Relationship Specialty Start Date End Date Lisbet Solitario MD [address] [place] [address] PCP - General Family Medicine 01/30/16 08/19/21 documented as of this encounter
--- OUTSIDE RECORDS SUMMARY | 2024-02-03 16:58 | XMS_ITS | Encounter Summary ---
Author Organization [facility] Address [facility] [place] [address] Care Team Providers Care Structures Technician Name Role Phone Juan Dempsey MD Primary Care Provider [phone] Encounter Details Date Type Department Care Team (Late st Contact Info) Description 09/08/2021 Telephone Hematology [place] [address] Mary Collazo, RN Social History [...] Telephone Encounter - Mary Collazo RN - 09/08/2021 7:21 AM EDT Follow-up: Triage: F/U [facility] 09/08 [facility]. Following LFT's. Pred taper as follows: Prednisone 40 mg po 09/05-09/07 Prednisone 20 mg po 09/08-09/10 Prednisone 10 mg po 09/11-09/13 Lab results received, entered into ED-H & sent to provider to review. Pt currently on prednisone 20 mg po daily & will be on this for a total of 3 days (09/08-09/10). Per Jennifer Carlos APRN: Yes, let's have him re-check labs ([facility]) on 09/10. Would you mind pending lab order? And please check to make sure he's not taking any K supplements and remind him to please push fluids bernardo in light of that elevated K level. Call placed to pt with plan. Reviewed labs & confirmed he tapered prednisone to 20 mg po daily starting 09/08. He will continue prednisone 20 mg po daily until 09/10. Let him know is BUN/Creat continue to be elevated & reinforced the importance of pushing po fluids. Also advised his K+ is elevated. Confirmed with pt he is not on any potassium supplements & advise to avoid sports drinks or foods high in potassium. Repeat CMP 09/10 & he would like to do this @ [facility] again. If labs stable plan is to taper prednisone to 10 mg po daily 09/11-09/13. Pt verbalized agreement with plan and knows to call clinic with any concerns and/or questions. Message sent to paralegal legal secretary to request order for CMP be faxed to [facility]. Triage nurse to f/u on results. documented in this encounter Plan of Treatment Upcoming Encounters Date Type Department Care Team (Late st Contact Info) Description 02/16/2024 9:15 AM EDT Laboratory Appointment Lab at [facility] Hematology Oncology [address] [place] [address] 02/16/2024 10:20 AM EDT Hospital [place] [address] Mitali Griffiths APRN [facility] [address] [place] [address] 02/16/2024 1:30 PM EDT Office Visit Hematology [place] [phone] Albino Bartholomew MD [facility] DR [place]EMATOLOGY [place] [address] 04/17/2024 10:00 AM EST Office Visit Dermatology at [facility] [address] [place] [address] Oli Winter MD [address] [facility] [place] [address] Scheduled Orders Name Type Priority Associated Diagnoses Orde r Schedule Comprehensive metabolic panel (non-fasting) Lab STAT Elevated LFTs Expected: 09/10/2021 (Approximate), Expires: 03/12/2022 documented as of this encounter Procedures Procedure Name Priority Date/Time Associated Diagnosis Comments COMPREHENSIVE METABOLIC PANEL Routine 09/08/2021 3:48 PM EDT documented in this encounter Results * (ABNORMAL) Comprehensive metabolic panel (non-fasting) (09/08/2021 3:48 PM EDT) Glucose 149(A) 74 - 106 Blood Urea Nitrogen 29(A) 7 - 18 Creatinine 1.6(A) 0.70 - 1.30 Sodium 136 136 - 145 Potassium 5.3(A) 3.5 - 5.1 Chloride 101 98 - 107 Carbon Dioxide 29 21 - 32 Calcium 8.8 8.5 - 10.1 Protein, Total 6.9 6.4 - 8.2 Albumin 3.5 3.4 - 5 Bilirubin, Total 0.4 0.2 - 1 Alkaline Phosphatase 123(A) 46 - 116 Aspartate Aminotransferase 29 15 - 37 Alanine Aminotransferase 166(A) 16 - 63 Blood 09/08/2021 3:48 PM EDT Historical Provider MD CHEMISTRY ORDERAB LES documented in this encounter Visit Diagnoses Diagnosis Elevated LFTs Other abnormal blood chemistry documented in this encounter Care Teams Structures Technician Relationship Specialty Start Date End Date Juan Dempsey MD [address] [place] [address] PCP - General Emergency Medicine 08/20/21 documented as of this encounter
--- OUTSIDE RECORDS SUMMARY | 2024-02-03 16:59 | XMS_ITS | Encounter Summary ---
Author Organization [facility] Address [facility] [place] [address] Care Team Providers Care Nurse Advisor Name Role Phone Lisbet Solitario MD Primary Care Provider [phone] Reason for Visit * Auth/Cert Specialty Diagnoses / Procedures Referred By Burak mcnair Referred To Contact Diagnoses Renal mass RENAL MASS Procedures PRO REMV KIDNEY, RADICAL PRO CYSTOURETHROSCOPY @NEPHRECTOMY, RADICAL W\REG LYMPHADENECTOMY &\OR VENA CAVA THROMBECTOMY (WRVU 23.81) CYSTO, CYSTOURETHROSCOPY, DIAGNOSTIC (WRVU 2.23) Referral ID Status Reason Start Date Expiration Date Visits Re quested Visits Authorized [id number] 1 1 Encounter Details Date Type Department Care Team (Latest Contact Info) Description 06/23/2021 5:49 AM [facility] - 06/27/2021 12:00 PM [facility] Hospital Encounter [address] [place] [address] Miles Hou MD [facility] [place] [address] Renal mass Discharge Disposition: Home Social History [...] Sign Reading Time Taken Comments Blood Pressure 192/90 06/27/2021 6:43 AM EST Pulse 58 06/26/2021 11:35 AM EST Temperature 36.7 ??C (98.1 ??F) 06/27/2021 6:43 AM ES T Respiratory Rate 18 06/27/2021 6:43 AM EST Oxygen Saturation 98% 06/27/2021 6:43 AM EST Inhaled Oxygen Concentration - - Weight 93.4 kg (206 lb) 06/23/2021 6:44 AM EST Height 181.6 cm (5' 11.5) 06/23/2021 6:44 AM ES T Body Mass Index 28.33 06/23/2021 6:44 AM EST documented in this encounter Discharge Summaries * Brando Boss MD - 06/27/2021 11:09 AM EST UROLOGY SERVICE Inpatient - Discharge Summary Patient Name: Raymundo Tenorio Patient Age: 66 y.o. : 1955 Attending Physician: Miles Hou MD Date of Admission: 06/23/2021 Date of Discharge: 06/25/21 Diagnosis: Active Hospital Problems Diagnosis ??? Renal mass Resolved Hospital Problems No resolved problems to display. Operations/Major Procedures: Operations: 06/23/2021 Surgeon(s) and Role: * Miles Hou MD - Primary * Dawn Tello MD - Resident: Procedure(s): @NEPHRECTOMY, RADICAL W\REG LYMPHADENECTOMY &\OR VENA CAVA THROMBECTOMY (WRVU 23.81) CYSTO, CYSTOURETHROSCOPY, DIAGNOSTIC (WRVU 2.23) HPI (from Dr. Hou's clinic note from 05/26/[address] Tello's admission note from 06/23/21): 66 yo male referred to me for a newly diagnosed left renal mass. He had few episodes of gross hematuria prompting a CT scan which showed a large left renal mass. He denies any abdominal pain or bony pain. He has lost 10lbs over the last year. He denies any family history of RCC and he does not smoke. He was also found to have blood in his stool and is scheduled for a colonoscopy. Raymundo Tenorio is a 66 y.o. male w/ large left renal mass concerning for malignancy who presentstoday for left radical nephrectomy. ?? The patient was last seen by Dr. Hou on 05/26/21; please see clinic note for further detail. ?? No interval changes. No recent illness or changes in health. ?? Patient will receive Ancef for prophylaxis. ?? No anticoagulation. Hospital Course: Raymundo Tenorio was admitted to [facility] on 06/23/2021 through the Same Day Surgery program after undergoing the procedure noted above. The intra-operative findings were left radical nephrectomy via subcostal incision, single artery and vein taken individually with stapler, adhesions superiorly, gonadal divided, ureter not definitively identified - likely taken with ligasure in inferior fatty tissue,closed in two layers. After adequate recovery from anesthesia in the PACU, the patient was transferred to the floor. His hospital stay was uncomplicated. The patient pain was well controlled with an epidural placed by the acute pain service, which was gradually titrated down and removed on 06/26. His pain was well controlled on oral pain regimen. Patient's Cabezas catheter was removed on the morning of 06/27. He was voiding an adequate amount of urine spontaneously after Cabezas was removed with low post void residuals. He was ambulating independently, and did not have any rehabilitation needs. He did have a hgb drop likely due to acute blood loss anemia from surgery, but this stabilized without any indication ofcontinued bleeding Raymundo Tenorio's pain was adequately controlled, he was maintaining adequate oxygen saturation onroom air, and was hemodynamically stable. he was tolerating a diet without abdominal complaints andvoiding adequately. WBC and Hgb were stable. he was ambulating independently. Raymundo Tenorio was evaluated by the Urology team and deemed medically stable for discharge on 06/27/21. Updated Allergies/ADRs: Allergies Allergen Reactions ??? Peanut Pending Lab Data at Discharge: none Condition at Discharge: Stable Important Studies and Lab Data: Labs: Recent Labs 06/27/21 0134 06/26/2113006/25/21140 WBC 5.8 6.1 7.0 HGB 9.6* 8.6* 8.9* HCT 29.7* 26.5* 27.4* PLATELET 199 166 154 Recent Labs 06/27/214 06/26/2113006/25/21140 NA 140 138 137 K 3.7 4.0 4.5 CL 106 108* 107 CO2 27 23 23 BUN 19 18 21* CREATININE 1.22 1.11 1.32 GLUCOSE 134 102 92 CALCIUM 8.5 8.2* 8.4* Studies: None Discharge Examination: Last value Range last 12 hrs Temperature Temp: 36.7 ??C (98.1 ??F) Temp: [36.6 ??C (97.9 ??F)-36.7 ??C (98.1 ??F)] Heart Rate Heart Rate: 58 Heart Rate: -- Blood Pressure BP: 192/90 BP: (163-192)/(74-90) Respiratory Rate Resp: 18 Resp: [17-18] SpO2 SpO2: 98 % SpO2: [98 %-99 %] I/Os: I/O last 3 completed shifts: In: 2699.5 [P.O.:1170; I.V.:1452; Other:77.5] Out: 7700 [Urine:7700] No intake/output data recorded. Physical Exam: GEN: NAD. Resting comfortably. CV: Assessed peripherally, regular rate CHEST: CTAB. No audible wheezing/rales/rhochi. ABD: Soft,??mild tenderness to palpation near surgical site, but otherwise non- tender, non-distended. Incision clean/dry/intact without drainage or surrounding erythema. EXTR: Moving spontaneously. Warm, 2+ pulses bilaterally. No edema. : Cabezas draining CYU, removed and voiding spontaneously SKIN: Warm and dry. NEURO: Alert and follows command. Body mass index is 28.33 kg/m??. Discharge to: Home Discharge Conditions/Prognosis: Stable Plan: - Follow up with Dr. Hou in 2 weeks - Tylenol PRN pain - regular diet - AVOID NSAIDS - Bowel regimen Discharge Medications: The following medications have been prescribed for you. If you notice any adverse reactions to your medications, please contact your primary care physician immediately or go tothe nearest Emergency Department. Your Medications New Medications Dose Details acetaminophen 325 mg Tab Commonly known as: Tylenol Take 2-3 tablets by mouth every 6 hours as needed for Pain. 650-975 mg Refills: 0 docusate sodium 100 mg Cap Commonly known as: Colace Take 1 capsule by mouth 2 times daily as needed for Constipation for up to 10 days. 100 mg Refills: 0 polyethylene glycoL 17 gram Pwpk Commonly known as: Miralax Take 17 g by mouth daily as needed. 17 g Refills: 0 Continued medications, unchanged Dose Details atorvastatin 20 mg Tab Commonly known as: Lipitor Take 20 mg by mouth daily. 20 mg Refills: 0 losartan 100 mg Tab Commonly known as: COZAAR Take 100 mg by mouth daily. 100 mg Refills: 0 STOPPED Medications ibuprofen 200 mg Tab Commonly known as: Advil Follow-up Care & Plans: For questions, orders or appointments related to your continuing care after your discharge, you or your provider should contact the physician that managed that part of your care. Urology Clinic: [phone] PCP: Lisbet Solitario MD, . Please follow-up with your PCP in 1-2 weeks or sooner as needed. Issues to be followed-up with your PCP: 1. Scheduled Appointments: The following appointments have been scheduled on your behalf: Outpatient Services/Studies: No discharge procedures on file. Instructions Given to Patient at Discharge: Patient Instructions UROLOGY NEPHRECTOMY DISCHARGE INSTRUCTIONS Call your doctor for: ??? Fevers greater than 100.5 ??? Severe nausea or vomiting ??? Increasing pain not controlled by pain medications ??? Increasing redness or drainage from incisions ??? Decreased urine output or inability to urinate/Cabezas catheter stops draining before 5 PM weekdays for urgent concerns after 5 PM and weekends. Ask for the on-call Urology resident IMPORTANT! Special Considerations for Solitary Kidney: - Do not take megavitamins, herbal products, and NSAID pain relievers (such as ibuprofen, Motrin, Advil, naproxen, Aleve), unless instructed otherwise by your Physician. - Please be sure that you take adequate fluids with all medication. - It is important to discuss any medications, dietary supplements with your physician before starting them. - Please be sure to remind all prescribing physicians that you have one kidney. Medications: - You may take acetaminophen (Tylenol) up to 1000mg every 6 hours. Do not exceed 4000mg acetaminophen in 24 hours. - Avoid NSAIDs (ibuprofen, Motrin, Advil, etc,) Activity level: - No heavy lifting greater than 10 pounds (about equal to a full gallon jug) for the next 4-6 weeksor until cleared to do so at follow-up appointment. - Otherwise activity as tolerated by comfort level. - Take frequent short walks throughout the day. There is no such thing as too much walking. Diet: - You should eat a healthy diet for at least several weeks after your surgery to promote good woundhealing. - Drink plenty of fluids. Bowel Movements: - Many people have issues having bowel movements after surgery (i.e. constipation). - The goal is to have at least one soft bowel movement daily without straining. - To help with constipation: ??? Drink at least 2 liters (8 cups or 64oz) of water each day. ??? Increase fiber. Eat leafy greens, whole grains, and beans. You can buy [id number]-[id number] fiber supplements such as Metamucil, Benefiber, Citracel, and others. ??? Use bdrv-odd-tfmbuxf products. Try them in this order: 1. Stool softeners such as Colace, Surfak, and others 2. Laxatives/Stimulants such as Milk of Magnesia, Miralax, Senna, Bisacodyl 3. Rectal suppository: Ducolax suppository 4. Enema: Fleet enema Driving: No driving while still taking opioid pain medications (wait at least 6- 8 hours since last dose). No driving if you are still sore from surgery as it may limit your ability to react quickly if necessary. Shower/Bath: You may shower and get incision(s) wet. Pat dry immediately following your shower. Do not scrub them vigorously for the next 2-3 weeks. Do not soak incision(s) (i.e. soaking in bath, hottub, or swimming) until told you may do so by a doctor, as this may promote a wound infection. Wound Care: You may cover wounds with sterile gauze as needed to prevent incision rubbing on clothes or for any seepage. Your sutures are absorbable and do not need to be removed. Your incision is covered by a layer of surgical glue which will peel off on its own. Do not pick it off. Urology Follow up Appointments: - Your surgical follow-up appointment will be scheduled in approximately 2 weeks via telehealth - this has been requested. Appointment will be mailed to you. You may check on the status of your appointment on [facility]. Please call (clinic number for appointments) to confirm date and time of your appointment if you do not receive it. General Instructions None Call your doctor if: Please call your doctor immediately or go to an Emergency Department if you notice worsening pain not controlled by pain medications, uncontrolled headache, vision changes, chest pain, difficulty breathing, persistent nausea and vomiting, new redness or swelling in any extremities, new onset weakness or changes in sensation, or for any fevers greater than 101.3 F. Your care was managed by the Urologic Surgery Team at [facility]. If you have any questions or concerns, please feel free to contact us. Provider Contact Information: Urology Clinic: [phone] [facility] (after business hours): CC: Lisbet Solitario MD Signed: Brando Boss MD 06/27/2021 Associated attestation - Miles Hou MD - 06/27/2021 11:35 AM EST I have seen the patient and reviewed the resident's above history and I agree with the details as written. The assessment and plan were formulated in discussion with me and I agree with them as documented. documented in this encounter Discharge Instructions * Patient Instructions* Brando Boss MD - 06/27/2021 7:39 AM EST UROLOGY NEPHRECTOMY DISCHARGE INSTRUCTIONS Call your doctor for: Fevers greater than 100.5 Severe nausea or vomiting Increasing pain not controlled by pain medications Increasing redness or drainage from incisions Decreased urine output or inability to urinate/Cabezas catheter stops draining before 5 PM weekdays for urgent concerns after 5 PM and weekends. Ask for the on-call Urology resident IMPORTANT! Special Considerations for Solitary Kidney: - Do not take megavitamins, herbal products, and NSAID pain relievers (such as ibuprofen, Motrin, Advil, naproxen, Aleve), unless instructed otherwise by your Physician. - Please be sure that you take adequate fluids with all medication. - It is important to discuss any medications, dietary supplements with your physician before starting them. - Please be sure to remind all prescribing physicians that you have one kidney. Medications: - You may take acetaminophen (Tylenol) up to 1000mg every 6 hours. Do not exceed 4000mg acetaminophen in 24 hours. - Avoid NSAIDs (ibuprofen, Motrin, Advil, etc,) - We did not prescribe any new medications - you may take Tylenol over the counter for pain and bowel medications listed below, also over the counter Activity level: - No heavy lifting greater than 10 pounds (about equal to a full gallon jug) for the next 4-6 weeksor until cleared to do so at follow-up appointment. - Otherwise activity as tolerated by comfort level. - Take frequent short walks throughout the day. There is no such thing as too much walking. Diet: - You should eat a healthy diet for at least several weeks after your surgery to promote good woundhealing. - Drink plenty of fluids. Bowel Movements: - Many people have issues having bowel movements after surgery (i.e. constipation). - The goal is to have at least one soft bowel movement daily without straining. - To help with constipation: Drink at least 2 liters (8 cups or 64oz) of water each day. Increase fiber. Eat leafy greens, whole grains, and beans. You can buy ncjx-rav-pnttbuk fiber supplements such as Metamucil, Benefiber, Citracel, and others. Use imes-nho-dsiwtyx products. Try them in this order: Stool softeners such as Colace, Surfak, and others Laxatives/Stimulants such as Milk of Magnesia, Miralax, Senna, Bisacodyl Rectal suppository: Ducolax suppository Enema: Fleet enema Driving: No driving while still taking opioid pain medications (wait at least 6- 8 hours since last dose). No driving if you are still sore from surgery as it may limit your ability to react quickly if necessary. Shower/Bath: You may shower and get incision(s) wet. Pat dry immediately following your shower. Do not scrub them vigorously for the next 2-3 weeks. Do not soak incision(s) (i.e. soaking in bath, hottub, or swimming) until told you may do so by a doctor, as this may promote a wound infection. Wound Care: You may cover wounds with sterile gauze as needed to prevent incision rubbing on clothes or for any seepage. Your sutures are absorbable and do not need to be removed. Your incision is covered by a layer of surgical glue which will peel off on its own. Do not pick it off. Urology Follow up Appointments: - Your surgical follow-up appointment will be scheduled in approximately 2 weeks via telehealth - this has been requested. Appointment will be mailed to you. You may check on the status of your appointment on [facility]. Please call (clinic number for appointments) to confirm date and time of your appointment if you do not receive it. documented in this encounter Medications at Time of Discharge Medication Sig Dispensed Refills Start Date End Date acetaminophen (Tylenol) 325 mg Tablet Take 2-3 tablets by mouth every 6 hours as needed for Pain. 06/27/2021 losartan (COZAAR) 100 mg Tablet Take 100 mg by mouth daily. 04/11/2019 docusate sodium (Colace) 100 mg Capsule Take 1 capsule by mouth 2 times daily as needed for Constipation for up to 10 days. 06/27/2021 07/07/2021 polyethylene glycoL (Miralax) 17 gram Powder in Packet Take 17 g by mouth daily as needed. 06/27/2021 08/07/2021 atorvastatin (LIPITOR) 20 mg Tablet Take 20 mg by mouth daily. Currently not taking 02/11/2018 03/19/2022 documented as of this encounter Progress Notes * Dee Dee Jaime RN - 06/27/2021 11:25 AM EST Patient discharged to home. Reviewed after visit summary with patient and . Patient aware of when and why to notify MD. Patient and had no questions regarding discharge teaching. Patient aware of follow up appointments. IVs DC'd. Pt belongings gathered. Pt left in personal clothing. Patient left to family vehicle at approximately 1155. * Trevor Ocampo - 06/26/2021 6:30 PM EST Patient comfortable since epidural stopped. Last heparin dose 1300. Epidural removed. Tip intact. * Zachery Cline MD - 06/26/2021 2:13 PM EST Acute Pain Service - Epidural Daily Management VITAL SIGNS: Visit Vitals BP 170/80 (BP Location (NBP): Right arm, Patient Position: Lying) Pulse 58 Temp 37 ??C (98.6 ??F) (Oral) Resp 16 Ht 181.6 cm (5' 11.5) Wt 93.4 kg (206 lb) SpO2 99% BMI 28.33 kg/m?? Body mass index is 28.33 kg/m??. Labs: WBC Date Value Ref Range Status 06/26/2021 6.1 4.0 - 9.5 x10(3)/mcL Final Hemoglobin Date Value Ref Range Status 06/26/2021 8.6 (L) 13.7 - 16.5 g/dL Final Hematocrit Date Value Ref Range Status 06/26/2021 26.5 (L) 40.5 - 48.5 % Final Platelets Date Value Ref Range Status 06/26/2021 166 145 - 357 x10(3)/mcL Final Operative Procedures: Procedure(s): @NEPHRECTOMY, RADICAL W\REG LYMPHADENECTOMY &\OR VENA CAVA THROMBECTOMY (WRVU 23.81) CYSTO, CYSTOURETHROSCOPY, DIAGNOSTIC (WRVU 2.23) APS Opioid Administration Hx All administrations since 06/25/2021 are shown below each listed medication. Other Order Route Rate Dose Action Date HYDROmorphone (Dilaudid) 10 mcg/mL, BUpivacaine (Marcaine) 0.1% (0.1 mg/mL) (1/10%) in sodium chloride 0.9% 250 mL epidural Epidural 0.1 mL/hr 0.1 mL/hr Rate/Dose Change 06/26/2021 Epidural 4 mL/hr 4 mL/hr New Bag 06/26/2021 Epidural 4 mL/hr 4 mL/hr New Bag 06/25/2021 Epidural 4 mL/hr 4 mL/hr Rate/Dose Change 06/25/2021 AN APS EPIDURAL ROUNDIN06/26/2021 2:13 PM Average Numeric Rating Pain Score (0-10): 0 Post-Op Day: 3 Epidural Day: 4 Epidural Infusion (solution): HYDROmorphone 10 mcg/mL and BUpivacaine 0.1% Epidural Infusion Rate: 0 PCEA Dose: 3 Out of Bed: Yes Ambulation: Yes Able to Use Incentive Spirometry: Yes Escalation of Care: No Tolerating Regular Diet: Yes Ileus: No Epidural Catheter Removed (Intact unless noted in Comments): Yes Mr. Tenorio endorses well controlled pain today. He is OOB to the chair and has ambulated without difficulty. He is tolerating a diet and denies ROBF. His epidural dressing is clean, dry and intact. ?? We decreased his epidural to PCEA only and will check back later today to see if his pain is controlled with oral analgesics. ?? I, BECCA CAPONE RN, have performed the documentation for this encounter in the presence of and acting as a scribe for Dr. Cline. [facility] Nurse: Becca Capone RN Resident:: Kieran Chua MD Attending Physician:: Zachery Cline MD I performed the above scribed service and agree with the accuracy of the note. Zachery Cline MD [id number] * Brando Boss MD - 06/26/2021 8:01 AM EST Urology Inpatient Progress Note ID: Raymundo Tenorio is a 66 y.o. male with history of large left renal mass concerning for malignancy s/p open left radical nephrectomy 3 Days Post-Op Events over the last 24 hrs: - No acute events overnight - Tolerating regular diet - Passing flatus, + BM x 1 - Episode of cabezas not draining overnight, now draining - Has been OOB walking around floor and to chair - Pain well controlled on PCEA per APS - continue to wean as possible and transition to PO pain control with return of bowel function - Denies SOB, CP, fever, nausea, or vomiting Objective: Last value Range last 24hrs Temperature Temp: 36.5 ??C (97.7 ??F) Temp: [36.5 ??C (97.7 ??F)-36.8 ??C (98.3 ??F)] Heart Rate Heart Rate: 51 Heart Rate: [51] Blood Pressure BP: 167/83 BP: (145-195)/(73-99) Respiratory Rate Resp: 16 Resp: [16-18] SpO2 SpO2: 98 % SpO2: [95 %-99 %] I/O last 3 completed shifts: In: 4659.7 [P.O.:940; I.V.:3540.7; Other:179] Out: 7950 [Urine:7950] Intake/Output Summary (Last 24 hours) at 06/26/2021 0808 Last data filed at 06/26/2021 0736 Gross per 24 hour Intake 2929.95 ml Output 4850 ml Net -1920.05 ml Physical Exam GEN: NAD. Resting comfortably. CV: Assessed peripherally, regular rate CHEST: CTAB. No audible wheezing/rales/rhochi. ABD: Soft, mild tenderness to palpation near surgical site, but otherwise non- tender, non-distended. Incision clean/dry/intact without drainage or surrounding erythema. EXTR: Moving spontaneously. Warm, 2+ pulses bilaterally. No edema. : Cabezas draining CYU, slightly pink tinged SKIN: Warm and dry. NEURO: Alert and follows command. Labs Recent Labs 06/26/2113006/25/21 01406/24/21 011 NA 138 137 136 K 4.0 4.5 5.3* CL 108* 107 105 CO2 23 23 BUN 18 21* 22* CREATININE 1.11 1.32 1.31 GLUCOSE 102 92 129 Recent Labs 06/26/21 01306/25/21 0141 06/24/21 0112 CALCIUM 8.2* 8.4* 8.6 Recent Labs 06/26/21 0131 06/25/21 0141 06/24/21 0112 WBC 6.1 7.0 11.4* HGB 8.6* 8.9* 9.7* HCT 26.5* 27.4* 30.4* PLATELET 166 154 186 No results for input(s): INR, PTT in the last 72 hours. Invalid input(s): PT No results for input(s): AST in the last 72 hours. Invalid input(s): ALT, ALKPHOS, BILITOT, BILIDIR Imaging none Assessment/Management/Plan: Raymundo Tenorio is a 66 y.o. male with history of left renal mass, now s/p left radical nephrectomy 3 Days Post-Op. Tolerating regular diet today and passing flatus, with 1 BM yesterday. Continue to encourage ambulation. Continue to wean epidural per APS until patient can tolerate PO pain regimen. Cabezas to remain in place until epidural titrated off and removed. If this happens today can void trial. Hemoglobin continues to be stable (acute blood loss anemia from OR) Neuro: Tylenol q6hr; Dilaudid PO PRN, PCEA per APS - remove when able Psych:ROXY CV: HTN - holding home cozaar; PRN labetalol added. Continue lipitor Resp: stable on room air, encourage IS GI: Zofran PRN nausea; Colace BID, Dulcolax PRN constipation, Regular diet : continue monitoring UOP, continue Cabezas FEN: replace lytes prn. HLIVF Endo: ROXY Heme: continue ppx SQH ID: afebrile, Completed periop ancef Prophylaxis: SQH, SCDs, encourage ambulation MSK: PT/OT consult Dispo: stable on floor status, will discuss discharge planning with care nurse rn. Code status: Full code Brando Boss MD [id number] Associated attestation - Miles Hou MD - 06/26/2021 1:31 PM EST I have seen the patient and reviewed the resident's above history and I agree with the details as written. The assessment and plan were formulated in discussion with me and I agree with them as documented. * Brando Boss MD - 06/25/2021 12:46 PM EST Urology Inpatient Progress Note ID: Raymundo Tenorio is a 66 y.o. male with history of large left renal mass concerning for malignancy s/p open left radical nephrectomy 2 Days Post-Op Events over the last 24 hrs: - No acute events overnight - Nausea improved, tolerating regular diet - Passing flatus, no BM - Has been OOB walking around floor and to chair - Pain well controlled on PCEA per APS - weaned today which was well-tolerated - Denies SOB, CP, fever, nausea, or vomiting Objective: Last value Range last 24hrs Temperature Temp: 36.8 ??C (98.2 ??F) Temp: [36.6 ??C (97.8 ??F)-36.8 ??C (98.3 ??F)] Heart Rate Heart Rate: 52 Heart Rate: -- Blood Pressure BP: 179/90 BP: (127-179)/(59-90) Respiratory Rate Resp: 18 Resp: [14-18] SpO2 SpO2: 99 % SpO2: [96 %-99 %] I/O last 3 completed shifts: In: 6545.9 [P.O.:1715; I.V.:4612.7; Other:218.3] Out: 5275 [Urine:5275] Intake/Output Summary (Last 24 hours) at 06/25/2021 1246 Last data filed at 06/25/2021 0900 Gross per 24 hour Intake 3173.22 ml Output 4825 ml Net -1651.78 ml Physical Exam GEN: NAD. Resting comfortably. CV: Assessed peripherally, regular rate CHEST: CTAB. No audible wheezing/rales/rhochi. ABD: Soft, mild tenderness to palpation near surgical site, but otherwise non- tender, non-distended. Incision clean/dry/intact without drainage or surrounding erythema. EXTR: Moving spontaneously. Warm, 2+ pulses bilaterally. No edema. : Cabezas draining CYU, slightly pink tinged SKIN: Warm and dry. NEURO: Alert and follows command. Labs Recent Labs 06/25/21 0141 06/24/21 0112 06/23/21 1245 NA 137 136 134* K 4.5 5.3* 4.3 CL 107 105 105 CO2 23 23 20* BUN 21* 22* 20 CREATININE 1.32 1.31 1.21 GLUCOSE 92 129 169 Recent Labs 06/25/21 0141 06/24/21 0112 06/23/21 1245 CALCIUM 8.4* 8.6 9.1 Recent Labs 06/25/21 0141 06/24/21 0112 06/23/21 1245 WBC 7.0 11.4* 8.4 HGB 8.9* 9.7* 12.6* HCT 27.4* 30.4* 38.6* PLATELET 154 186 157 No results for input(s): INR, PTT in the last 72 hours. Invalid input(s): PT Recent Labs 06/23/21 0710 AST 20 Imaging none Assessment/Management/Plan: Raymundo Tenorio is a 66 y.o. male with history of left renal mass, now s/p left radical nephrectomy 2 Days Post-Op. Patient recovering well post-op. Tolerating regular diet today and passing flatus, still no BM. Continue to encourage ambulation today. Continue to wean epidural per APS until patient can tolerate POpain regimen. Cabezas to remain in place until epidural titrated. Hemoglobin has stabilized - likely acute blood loss anemia, no indication of continued bleeding or for transfusion at this point in time as the patient is hemodynamically stable. Neuro: Tylenol q6hr; Dilaudid PO PRN, PCEA per APS - weaned today Psych:ROXY CV: HTN - holding home cozaar. Continue lipitor Resp: stable on room air, encourage IS GI: Zofran PRN for nausea; Colace BID, Dulcolax PRN constipation, Regular diet : continue monitoring UOP, continue Cabezas FEN: replace lytes prn Endo: ROXY Heme: continue ppx SQH ID: afebrile, Completed periop ancef Prophylaxis: SQH, SCDs, encourage ambulation MSK: PT/OT consult Dispo: stable on floor status, will discuss discharge planning with care nurse rn. Code status: Full code Brando Boss MD [id number] * Zachery Cline MD - 06/25/2021 11:31 AM EST Acute Pain Service - Epidural Daily Management VITAL SIGNS: Visit Vitals BP 179/90 (BP Location (NBP): Right arm, Patient Position: Lying) Pulse 52 Temp 36.8 ??C (98.2 ??F) (Oral) Resp 18 Ht 181.6 cm (5' 11.5) Wt 93.4 kg (206 lb) SpO2 99% BMI 28.33 kg/m?? Body mass index is 28.33 kg/m??. Labs: WBC Date Value Ref Range Status 06/25/2021 7.0 4.0 - 9.5 x10(3)/mcL Final Hemoglobin Date Value Ref Range Status 06/25/2021 8.9 (L) 13.7 - 16.5 g/dL Final Hematocrit Date Value Ref Range Status 06/25/2021 27.4 (L) 40.5 - 48.5 % Final Platelets Date Value Ref Range Status 06/25/2021 154 145 - 357 x10(3)/mcL Final Operative Procedures: Procedure(s): @NEPHRECTOMY, RADICAL W\REG LYMPHADENECTOMY &\OR VENA CAVA THROMBECTOMY (WRVU 23.81) CYSTO, CYSTOURETHROSCOPY, DIAGNOSTIC (WRVU 2.23) APS Opioid Administration Hx All administrations since 06/24/2021 are shown below each listed medication. Other Order Route Rate Dose Action Date HYDROmorphone (Dilaudid) 10 mcg/mL, BUpivacaine (Marcaine) 0.1% (0.1 mg/mL) (1/10%) in sodium chloride 0.9% 250 mL epidural Epidural 4 mL/hr 4 mL/hr New Bag 06/25/2021 Epidural 4 mL/hr 4 mL/hr Rate/Dose Change 06/25/2021 Epidural 6 mL/hr 6 mL/hr New Bag 06/24/2021 DH AN APS EPIDURAL ROUNDIN06/25/2021 11:10 AM Average Numeric Rating Pain Score (0-10): 0 Post-Op Day: 2 Epidural Day: 3 Epidural Infusion (solution): HYDROmorphone 10 mcg/mL and BUpivacaine 0.1% Epidural Infusion Rate: 6 PCEA Dose: 3 Out of Bed: Yes Ambulation: Yes Able to Use Incentive Spirometry: Yes Escalation of Care: No Tolerating Regular Diet: Yes Ileus: No Epidural Catheter Removed (Intact unless noted in Comments): No Mr. Tenorio endorses well controlled pain this morning.He has not used his PCEA. He has ambulated and been OOB to the chair. He is tolerating a regular diet and endorses flatus. His epidural dressing is clean, dry and intact. ?? We decreased his epidural to 4mL/hr and will continue to wean over the next day. ?? I, BECCA CAPONE RN, have performed the documentation for this encounter in the presence of and acting as a scribe for Dr. Cline. APS Nurse: Becca Capone RN Resident:: Kieran Chua MD Attending Physician:: Zachery Cline MD I performed the above scribed service and agree with the accuracy of the note. Zachery Cline MD [id number] * Lulu Khan OT - 06/25/2021 10:41 AM EST Occupational Therapy Note Document Type: contact Total Minutes, Occupational Therapy: 0 Reason: OT orders received, chart reviewed. Pt up with PT ambulating with S in the hallway. Discussed his present functional status - no concerns at this time. Reported that he has been able to participate in his self care routine with S d/t lines. Will place him on monitor status for the remainderof his hospitalization and instructed him to have his RN reach out with any questions/changes in his medical status. Pager: [phone] Lulu Khan OTR/L 06/25/2021 Occupational Therapy Rehabilitation Department * Dayanara Kern, PT - 06/25/2021 10:35 AM EST Physical Therapy Evaluation Patient profile: Raymundo Tenorio is a 66 y.o. male with history of large left renal mass concerning for malignancy s/p open left radical nephrectomy on 06/23/21. Patient with the following active problems: Past Medical History: Diagnosis Date ??? Claudication lower left leg , due to achilles surgery 2000 ??? High blood pressure losartan 100mg ??? Hyperlipidemia atorvastatin 20mg Past Surgical History: Procedure Laterality Date ??? ACHILLES TENDON SURGERY ??? HERNIA REPAIR Left inguinal ??? PRO CYSTOURETHROSCOPY N/A 06/23/2021 CYSTO, CYSTOURETHROSCOPY, DIAGNOSTIC (WRVU 2.23) performed by Miles Hou MD at [facility] MAIN OR ??? PRO REMV KIDNEY, RADICAL Left 06/23/2021 @NEPHRECTOMY, RADICAL W\REG LYMPHADENECTOMY &\OR VENA CAVA THROMBECTOMY (WRVU 23.81) performed by Miles Hou MD at [facility] MAIN OR There are no active non-hospital problems to display for this patient. 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 His niece is a PT at [facility], he reports she's already got exercises for me when I leave. Precautions/Special Considerations: fall risk Lines: epidural, PIV, cabezas Activity Orders: as tolerated Mobility and Positioning Recommendations: ?? Pt. to utilize supervision with lines for ambulation and transfers with nursing. ?? Please encourage up to chair for meal times as able. ?? Pt encouraged to ambulate frequently with staff, getting into the bathroom for toileting and walking out in the lay >/= 3 times daily as able. Subjective: ???I went for a walk earlier but I can go again if you want?? Objective: Pt seen for evaluation today. Pain: denies Vital Signs: stable on room air Mental Status: alert, oriented to person, place, and time. Very pleasant and cooperative. Vision: wears glasses Skin: incision not visualized. See lines above. Musculoskeletal: ROM: WFL Strength: WFL Sensation: WFL Bed Mobility: Supine to Sit: n/a- pt up in chair on therapist arrival Sit to Supine: n/a Transfers: Sit to Stand: independent Stand to Sit: independent Gait: Distance: ~300ft Device used: none- pushing IV pole but does not need for balance Level of assist: independent Gait mechanics: slower arielle due to lines/IV pole, otherwise no gait impairments noted Stairs: n/a Balance: Sitting Static: good Sitting Dynamic: good Standing Static: good Standing Dynamic / Gait: good Education: patient has been educated on Transfers, Safety , Gait , Activity pacing/Energy conservation, Role of therapy and Discharge planning and verbalizes and demonstrates understanding. Patient status, treatment, and mobility recommendations discussed with nursing. Assessment: Raymundo Tenorio was seen today for physical therapy evaluation. He is mobilizing well,no further acute PT needs. Will continue to monitor if further needs arise. Discharge Recommendations: Based on the current findings, Anticipated Discharge Disposition (PT): home when medically ready for hospital discharge. Consult Recommendations: No other consults recommended at this time. Equipment needs: Anticipated Equipment Needs at Discharge (PT): None Plan: Therapy Frequency (PT): evaluation only. Patient/family understand and agree with plan as stated above. 2017 PT Evaluation Code Rationale: ?? Diagnosis & Pertinent Co-Morbidities, personal factors, and present illness affecting Plan of Care: (see above); Additional personal factors or co- morbidities that impact plan: ?? Total # of Factors: 0 1-2 3+ x ?? Examination of body system impairments, functional limitations and behaviors, and/or participation restrictions. Addressing 1-2 elements Addressing 3 + elements x Addressing 4 + elements ?? Clinical presentation: See assessment above. Stable/Uncomplicated Evolving/Fluctuating Symptoms Unstable/Unpredictable x ?? Clinical decision making of moderate complexity based on pt's functional performance as outlinedin this evaluation. Time IN / OUT: 5995-1731 Total Minutes, Physical Therapy: 15 Dayanara Kern, PT Pager: [phone] Physical Therapy Inpatient Rehabilitation Department * Betty Morin RN - 06/25/2021 1:33 AM EST OUTCOME EVALUATION NOTE: OUTCOME SUMMARY: Pain managed with PCEA. Alert and oriented x4. AUOP via cabezas. Denied passing flatus, no BM. No nausea/ emesis. PLAN MOVING FORWARD: AROBF Monitor/ manage pain Maintain PCEA Monitor VS, labs, I/O's Discharge planning INDIVIDUALIZED FALL PREVENTION INTERVENTIONS: Patient-specific fall risk factors per assessment: [current deficits]: Recent surgery. Generalized weakness. Tubes/ drains. Hospital environment. Assistance [level of assistance required for transfers and ambulation]: SBA Supervision [direct monitoring required during toileting and ADLs]: Eyes on/ hands on Surveillance [continuous indirect monitoring]: Purposeful rounding. Bed alarm. Environmental modifications. Call urban within reach at all times. Patient-specific fall prevention interventions for sensory deficits provided, if applicable: [X] N/A CPG GOAL OUTCOME EVALUATION: * Zachery Cline MD - 06/24/2021 2:18 PM EST Acute Pain Service - Epidural Daily Management VITAL SIGNS: Visit Vitals BP 144/76 (BP Location (NBP): Right arm, Patient Position: Sitting) Pulse 52 Temp 36.5 ??C (97.7 ??F) (Oral) Resp 16 Ht 181.6 cm (5' 11.5) Wt 93.4 kg (206 lb) SpO2 93% BMI 28.33 kg/m?? Body mass index is 28.33 kg/m??. Labs: WBC Date Value Ref Range Status 06/24/2021 11.4 (H) 4.0 - 9.5 x10(3)/mcL Final Hemoglobin Date Value Ref Range Status 06/24/2021 9.7 (L) 13.7 - 16.5 g/dL Final Comment: This result has been called to BERNARDINO PAYAN by Noreen Streeter on 06 24 2021 at 0219, and has been read back. Hematocrit Date Value Ref Range Status 06/24/2021 30.4 (L) 40.5 - 48.5 % Final Platelets Date Value Ref Range Status 06/24/2021 186 145 - 357 x10(3)/mcL Final Operative Procedures: Procedure(s): @NEPHRECTOMY, RADICAL W\REG LYMPHADENECTOMY &\OR VENA CAVA THROMBECTOMY (WRVU 23.81) CYSTO, CYSTOURETHROSCOPY, DIAGNOSTIC (WRVU 2.23) APS Opioid Administration Hx All administrations since 06/23/2021 are shown below each listed medication. Other Order Route Rate Dose Action Date HYDROmorphone (Dilaudid) 10 mcg/mL, BUpivacaine (Marcaine) 0.1% (0.1 mg/mL) (1/10%) in sodium chloride 0.9% 250 mL epidural Epidural 6 mL/hr 6 mL/hr New Bag 06/24/2021 Epidural 6 mL/hr 6 mL/hr Continued Bag 06/23/2021 Epidural 6 mL/hr 6 mL/hr Rate/Dose Change 06/23/2021 Epidural 8 mL/hr 8 mL/hr Rate/Dose Change 06/23/2021 HYDROmorphone (Dilaudid) 10 mcg/mL, BUpivacaine (Marcaine) 0.1% (0.1 mg/mL) (1/10%) in sodium chloride 0.9% 250 mL epidural Epidural 3 mL Given 06/23/2021 Epidural 5 mL Given 06/23/2021 HYDROmorphone (Dilaudid) 10 mcg/mL, BUpivacaine (Marcaine) 0.1% (0.1 mg/mL) (1/10%) in sodium chloride 0.9% 250 mL epidural Epidural 6 mL/hr 6 mL/hr New Bag 06/23/2021 HYDROmorphone (Dilaudid) 10 mcg/mL, BUpivacaine (Marcaine) 0.1% (0.1 mg/mL) (1/10%) in sodium chloride 0.9% 250 mL epidural Epidural 3 mL Given 06/23/2021 fentaNYL (pf) (50 mcg/mL) multi-dose injection Intravenous 100 mcg Given 06/23/2021 Intravenous 150 mcg Given 06/23/2021 HYDROmorphone (Dilaudid) (2 mg/mL) injection solution 0.2 mg Epidural 0.2 mg Given 06/23/2021 fentaNYL (PF) (50 mcg/mL) injection 12.5-50 mcg Intravenous 50 mcg Given 06/23/2021 DH AN APS EPIDURAL ROUNDIN06/24/2021 2:18 PM Average Numeric Rating Pain Score (0-10): 0 Post-Op Day: 1 Epidural Day: 2 Epidural Infusion (solution): HYDROmorphone 10 mcg/mL and BUpivacaine 0.1% Epidural Infusion Rate: 6 PCEA Dose: 3 Out of Bed: Yes Ambulation: Yes Able to Use Incentive Spirometry: Yes Escalation of Care: No Tolerating Regular Diet: No Ileus: No Epidural Catheter Removed (Intact unless noted in Comments): No Mr. Tenorio endorses well controlled pain this afternoon. He has used his PCEA twice with good effect. He is tolerating a CLD and denied ROBF. His epidural dressing is clean, dry and intact. We made no changes to his epidural and will begin to wean once he can tolerate oral analgesics. I, BECCA CAPONE RN, have performed the documentation for this encounter in the presence of and acting as a scribe for Dr. Cline. APS Nurse: Becca Capone RN Resident:: Kieran Chua MD Attending Physician:: Zachery Cline MD I performed the above scribed service and agree with the accuracy of the note. Zachery Cline MD [id number] * Brando Boss MD - 06/24/2021 7:35 AM EST Urology Inpatient Progress Note ID: Raymundo Tenorio is a 66 y.o. male with history of large left renal mass concerning for malignancy s/p open left radical nephrectomy 1 Day Post-Op Events over the last 24 hrs: - No acute events overnight - Intermittently nauseous, 2 episodes of small volume emesis with clears - Not passing any gas - Not yet OOB - Pain well controlled on PCEA per APS - Denies SOB, CP, fever, nausea, or vomiting Objective: Last value Range last 24hrs Temperature Temp: 36.7 ??C (98 ??F) Temp: [35.8 ??C (96.5 ??F)-36.7 ??C (98 ??F)] Heart Rate Heart Rate: 52 Heart Rate: [49-65] Blood Pressure BP: 104/51 BP: (104-157)/(51-126) Respiratory Rate Resp: 16 Resp: [8-16] SpO2 SpO2: 93 % SpO2: [89 %-100 %] I/O last 3 completed shifts: In: 3695.5 [P.O.:720; I.V.:2738; Other:137.5; IV Piggyback:100] Out: 1875 [Urine:1175; Other:700] Intake/Output Summary (Last 24 hours) at 06/24/2021 0736 Last data filed at 06/24/2021 0620 Gross per 24 hour Intake 3695.45 ml Output 1875 ml Net 1820.45 ml Physical Exam GEN: NAD. Resting comfortably. CV: Assessed peripherally, regular rate CHEST: CTAB. No audible wheezing/rales/rhochi. ABD: Soft, mild tenderness to palpation near surgical site, but otherwise non- tender, non-distended. Incision clean/dry/intact without drainage or surrounding erythema. EXTR: Moving spontaneously. Warm, 2+ pulses bilaterally. No edema. : Cabezas draining CYU SKIN: Warm and dry. NEURO: Alert and follows command. Labs Recent Labs 06/24/21 0112 06/23/21 1245 06/23/21 0710 NA 136 134* 137 K 5.3* 4.3 4.2 CL 105 105 106 CO2 23 20* 21* BUN 22* 20 20 CREATININE 1.31 1.21 1.28 GLUCOSE 129 169 93 Recent Labs 06/24/21 0112 06/23/21 1245 06/23/21 0710 CALCIUM 8.6 9.1 10.0 Recent Labs 06/24/21 0112 06/23/21 1245 06/23/21 0830 WBC 11.4* 8.4 5.8 HGB 9.7* 12.6* 10.7* HCT 30.4* 38.6* 33.3* PLATELET 186 157 190 No results for input(s): INR, PTT in the last 72 hours. Invalid input(s): PT Recent Labs 06/23/21 0710 AST 20 Imaging none Assessment/Management/Plan: Raymundo Tenorio is a 66 y.o. male with history of left renal mass, now s/p left radical nephrectomy 1 Day Post-Op. Patient recovering well post-op. AROBF. 2 episodes of vomiting and intermittent nausea, will continue on clears and advance as tolerated. Encourage ambulation today Neuro: Tylenol q6hr; Dilaudid PO PRN, PCEA per APS Psych:ROXY CV: HTN - holding home cozaar. Continue lipitor Resp: stable on room air, encourage IS GI: Zofran PRN for nausea; Colace BID, Dulcolax PRN constipation, Clear liquid diet, advance as tolerated, AROBF : continue monitoring UOP, continue Cabezas FEN: replace lytes prn Endo: ROXY Heme: continue ppx SQH ID: afebrile, Completed periop ancef Prophylaxis: SQH, SCDs, encourage ambulation MSK: PT/OT consult Dispo: stable on floor status, will discuss discharge planning with care nurse rn. Code status: Full code Brando Boss MD [id number] Associated attestation - Miles Hou MD - 06/24/2021 8:18 PM EST I have seen the patient and reviewed the resident's above history and I agree with the details as written. The assessment and plan were formulated in discussion with me and I agree with them as documented. * Bernardino Payan RN - 06/24/2021 4:58 AM EST OUTCOME EVALUATION NOTE: OUTCOME SUMMARY: VSS, on RA. Epidural infusing, denies pain. Cabezas in place with nia colored urine. Incision intact. Hg dropped from 12.6 to 9.7 with AM labs- team aware. Masimo refused- refusal form placed in chart. Needs MD signature. Patient tried jell-o last night and had episode of projectile vomiting. Tolerating sips of water and isaias-katherine. PLAN MOVING FORWARD: Epidural IVF Cabezas I/Os Monitoring labs INDIVIDUALIZED FALL PREVENTION INTERVENTIONS: Medium Fall Risk Patient-specific fall risk factors per assessment: [current deficits]: Recent surgery, epidural infusing, weakness. Assistance [level of assistance required for transfers and ambulation]: 1A Supervision [direct monitoring required during toileting and ADLs]: Eyes on Surveillance [continuous indirect monitoring]: Bed alarm, bed in low position, wheels locked, clutter-free environment, call light within reach, nonskid footwear when OOB, purposeful rounding. Patient-specific fall prevention interventions for sensory deficits provided, if applicable: N/A CPG GOAL OUTCOME EVALUATION: * Norm Coulter RN - 06/23/2021 4:28 PM EST Received report from Jaja in PACU. Arrived to room 210A at 1545. A&O x4. VSS. Pain 0/10. IS teaching completed. SCD's on. Oriented to use of call urban, bed.chair alarm, and 2 [place] falls prevention program. Will check MD orders and continue to monitor. * Jennyfer Holland RN - 06/23/2021 12:27 PM EST RN lunch relief No pain Bothered by cabezas Epidural re'n checked * Addis Jackson RN - 06/23/2021 12:24 PM EST * Addis Jackson RN - 06/23/2021 8:53 AM EST Pt arrived to Pacu, placed on monitor and received report. 1255: anesthesia paged about Pt's low HR42-49. No orders at this time.1315: no output noted in cabezas. Tubing repositioned. Bladder scan obtained 340cc in bladder. Cath irragated with 20cc. Only 10cc return, team paged to inform.1330: no word from team but does have 20cc of irrigation out at this time. 1345: team repaged about cabezas 1420:Dr Tello here to look at cabezas. documented in this encounter H&P Notes * Dawn Tello MD - 06/23/2021 6:17 AM EST Images from the original note were not included. Interval H&P HPI: Raymundo Tenorio is a 66 y.o. male w/ large left renal mass concerning for malignancy who presents today for left radical nephrectomy. The patient was last seen by Dr. Hou on 05/26/21; please see clinic note for further detail. No interval changes. No recent illness or changes in health. Patient will receive Ancef for prophylaxis. No anticoagulation. PMH: Past Medical History: Diagnosis Date ??? Claudication lower left leg , due to achilles surgery 2000 ??? High blood pressure losartan 100mg ??? Hyperlipidemia atorvastatin 20mg PSH: Past Surgical History: Procedure Laterality Date ??? ACHILLES TENDON SURGERY ??? HERNIA REPAIR Left inguinal Medications: No current facility-administered medications on file prior to encounter. Current Outpatient Medications on File Prior to Encounter Medication Sig Dispense Refill ??? losartan (COZAAR) 100 mg Tablet Take 100 mg by mouth daily. ??? atorvastatin (LIPITOR) 20 mg Tablet Take 20 mg by mouth daily. ??? ibuprofen (ADVIL;MOTRIN) 200 mg tablet Allergies: Allergies Allergen Reactions ??? Peanut Physical Exam: General: NAD Cardiac: RRR Respiratory: CTAB Imaging: Labs: 05/14/21 Plan: Will proceed with planned surgery - left radical nephrectomy (open), tumor thrombectomy, possible vein reconstruction. Consent confirmed. LEFT side marked. [facility] Ancef T&S Dawn Tello MD Associated attestation - Miles Hou MD - 06/23/2021 7:07 AM EST I have seen the patient and reviewed the resident's above history and I agree with the details as written. The assessment and plan were formulated in discussion with me and I agree with them as documented. documented in this encounter Miscellaneous Notes * Plan of Care - Corazon Priest RN - 06/27/2021 4:33 AM EST OUTCOME EVALUATION NOTE: OUTCOME SUMMARY: Pt denies pain this shift, pt taking tylenol as scheduled. Pt tolerating regular diet, no N/V. AUOPvia cabezas this shift, passing flatus, no BM. Epidural removed at end of day shift, pt made independent in room. Pt resting between care. PLAN MOVING FORWARD: Monitor/manage pain D/C cabezas D/C planning INDIVIDUALIZED FALL PREVENTION INTERVENTIONS: Med Fall Risk Patient-specific fall risk factors per assessment: [current deficits]: Recent surgery, generalized weakness, hospital environment, and cabezas Assistance [level of assistance required for transfers and ambulation]: independent in room Supervision [direct monitoring required during toileting and ADLs]: Independent Surveillance [continuous indirect monitoring]: NKE at bedside, purposeful rounding, environmental modification (floor free of clutter, tubing secured), bed in low position, lighting adjusted for task/safety, nonskid slippers when out of bed, wheels locked, call light in reach, upper side-rails raised X2, ID bands on. Patient-specific fall prevention interventions for sensory deficits provided, if applicable: [X] N/A CPG GOAL OUTCOME EVALUATION: * Care Management Discharge - Tatianna Stallworth RN - 06/26/2021 10:41 AM EST CARE MANAGEMENT FINAL DISCHARGE NOTE Chart reviewed, care reviewed with primary team and at interdisciplinary rounds. Patient is anticipated to be medically ready for discharge on 06/27/2021 vs 06/28/2021. Needs for Transition of Care: Plan for discharge is: Home w/o Services Outpatient Agency/Support Group Needs: None Transportation: family or friend will provide Functional status prior to admission: Independent Home Environment: Others in the home: spouse. Current Living Arrangements: home/apartment/condo. Accessibility Concerns:none noted. Current Functional Ability: Assistive Person and Equipment DME used at home: none DME Needed at Discharge: none anticipated Patient is insured through: Primary Insurance: [employer]ELD [employer] [place] MEDICARE Payor: [employer]IELD [place] MEDICARE / Plan: [facility] / Product Type: *No Product type* / Secondary Insurance: N/A Prescription Coverage: YES Preferred Pharmacy: [facility] [place], [place] - [address] [place] [address] [address] [facility] [id number] This plan was formulated with input from patient and team. All are in agreement with plan. Initial IMM given: ??06/23/21 5:50 AM OCM RS to provide DC IMM R. (Mina) DUANE Stallworth RN/CM - Cellphone: [phone] Pager: [phone] Covering Service RN/CM * Plan of Care - Corazon Priest RN - 06/26/2021 3:16 AM EST OUTCOME EVALUATION NOTE: OUTCOME SUMMARY: Pt denies pain this shift, managed w/ PCEA. Pt tolerating regular diet, not N/V. AUOP via cabezas, low urine output around 0330. Bladder scan done, over 600 team paged. Cabezas flushed w/ good results noclots cabezas draining after. Pt passing flatus, no BM. Pt resting between care. PLAN MOVING FORWARD: ?? Monitor for and manage pain D/C epidural? D/C cabezas? I/O ?? INDIVIDUALIZED FALL PREVENTION INTERVENTIONS: high ?? Patient-specific fall risk factors per assessment: [current deficits]: 66 year old male with recentsurgery, PCEA, generalized weakness, cabezas, and hospital environment ?? Assistance [level of assistance required for transfers and ambulation]: SBA ?? Supervision [direct monitoring required during toileting and ADLs]: Eyes on ?? Surveillance [continuous indirect monitoring]: NKE at bed side, purposeful rounding, environmental modification, fall reduction program in place, lighting adjusted for task, bed in low position, wheels locked, non-skid socks, call light in reach at all times, assistive device, bed/chair alarm, and yellow falls ID band. ?? Patient-specific fall prevention interventions for sensory deficits provided, if applicable: [X] N/A ? CPG GOAL OUTCOME EVALUATION: ?? * Plan of Care - Lorena Toledo RN - 06/25/2021 5:45 PM EST OUTCOME EVALUATION NOTE: OUTCOME SUMMARY: Pt denies pain this shift, managed with PCEA, PCEA titrated down. Elevated BP to 190's, team paged,no new orders, otherwise VSS. Fully alert and oriented. Upgraded to regular diet, tolerating well, no nausea or emesis this shift. AUOP via cabezas. Pass flatus, loose BM x1. OOB to chair and ambulation in hallway with nursing staff x3. Resting well between care. PLAN MOVING FORWARD: Monitor for and manage pain D/C epidural? D/C cabezas? I/O INDIVIDUALIZED FALL PREVENTION INTERVENTIONS: high Patient-specific fall risk factors per assessment: [current deficits]: 66 year old male with recentsurgery, PCEA, generalized weakness, cabezas, and hospital environment Assistance [level of assistance required for transfers and ambulation]: SBA Supervision [direct monitoring required during toileting and ADLs]: Eyes on Surveillance [continuous indirect monitoring]: NKE at bed side, purposeful rounding, environmental modification, fall reduction program in place, lighting adjusted for task, bed in low position, wheels locked, non-skid socks, call light in reach at all times, assistive device, bed/chair alarm, and yellow falls ID band. Patient-specific fall prevention interventions for sensory deficits provided, if applicable: [X] N/A CPG GOAL OUTCOME EVALUATION: * Plan of Care - Lorena Toledo RN - 06/24/2021 3:57 PM EST OUTCOME EVALUATION NOTE: OUTCOME SUMMARY: Pt denies pain this shift, managed with PCEA. VSS. Fully alert and oriented. Tolerating clears well, no nausea or emesis this shift. AUOP via cabezas. Not yet passing flatus, no BM. OOB to chair and ambulation in hallway with nursing staff x1. Resting well between care. PLAN MOVING FORWARD: Monitor for and manage pain ROBF I/O INDIVIDUALIZED FALL PREVENTION INTERVENTIONS: high Patient-specific fall risk factors per assessment: [current deficits]: 66 year old male with recentsurgery, PCEA, generalized weakness, cabezas, and hospital environment Assistance [level of assistance required for transfers and ambulation]: SBA Supervision [direct monitoring required during toileting and ADLs]: Eyes on Surveillance [continuous indirect monitoring]: NKE at bed side, purposeful rounding, environmental modification, fall reduction program in place, lighting adjusted for task, bed in low position, wheels locked, non-skid socks, call light in reach at all times, assistive device, bed/chair alarm, and yellow falls ID band. Patient-specific fall prevention interventions for sensory deficits provided, if applicable: [X] N/A CPG GOAL OUTCOME EVALUATION: * Initial Assessments - Tatianna Stallworth RN - 06/24/2021 1:02 PM EST Office of Care Management Initial Assessment Medical record reviewed. Plan of care and patient status discussed with direct care Registered Nurse and/or Care Team in multidisciplinary rounds. Reason for Hospitalization: renal mass Last COVID test: Lab Results Component Value Date COVID19 Not Detected 06/20/2021 Present on Admission: ??? 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 Admission order reviewed. Primary Insurance on file: [employer] [facility] MEDICARE Secondary Insurance on file: n/a Primary care provider on file: Lisbet Solitario MD [phone] Pharmacy: [id number] [address] Advance Care Planning: Attempt Cardiopulmonary Resuscitation - Inpatient <no information> -Advanced Directive: Other (Surrogacy: Talisha Tenorio (Spouse)) Current Functional Ability: Assistive Equipment and Assistive Person Functional Status Prior to Admission: Independent Home Environment: Others in the home: spouse. Current Living Arrangements: home/apartment/condo. Accessibility Concerns:none noted. Current DME: none [facility] [id number] Social & Family Supports: Extended Emergency Contact Information Primary Emergency Contact: Talisha Tenorio [address]: [address] [place] [phone] [place] Relation: Spouse Secondary Emergency Contact: German Tenorio, MARIO [address] [facility] [place] Relation: Child Current Care Provided by: self Transportation: no concerns Transportation Anticipated: family or friend will provide Assessment: Patient with no apparent RNCM/SW needs at this time. No housing, transportation, insurance, resources concerns identified at this time. Supports in place to achieve a safe post-hospital transition. No identified barriers to accessing necessary care and/or follow-up after discharge. Plan: Patient to d/c to home without services via car when medically ready. Registered Nurse Paving Bed Maker / Rf Design Engineer will continue to follow patient???s progress and remain available if situation changes for coordination of care, psychosocial support and/or discharge planning. Office of Care Management Kayla Stallworth RN (Jonas) RN/CM - Cellphone: [phone] Pager: [phone] Covering Service RN/CM * Op Note - Dawn Tello MD - 06/23/2021 1:07 PM EST Operative Note Patient Name: Raymundo Tenorio : [id number] MR#: [id number] Case Date: 06/23/2021 Surgeon: Surgeon(s) and Role: * Miles Hou MD - Primary * Dawn Tello MD - Resident Preoperative diagnosis: RENAL MASS Postoperative diagnosis: RENAL MASS Procedure(s) (LRB): @NEPHRECTOMY, RADICAL W\REG LYMPHADENECTOMY &\OR VENA CAVA THROMBECTOMY (WRVU 23.81) (Left) CYSTO, CYSTOURETHROSCOPY, DIAGNOSTIC (WRVU 2.23) (N/A) Anesthesia: General + epidural Findings: left radical nephrectomy via subcostal incision, single artery and vein taken individually with stapler, adhesions superiorly, gonadal divided, ureter not definitively identified - likely taken with ligasure in inferior fatty tissue, closed in two layers Complications: none Estimated Blood Loss: 700cc Specimens removed during surgery: Intra-Procedure Orders (From admission, onward) Start Ordered 06/23/21 1140 Specimen to Pathology (Multiple Specimen to Pathology requests panel ) ONE TIME Question Answer Comment Clinical History and Diagnosis: RENAL MASS Specimen Source: Left Kidney Specimen Type: biopsy Time specimen removed from patient: 11:36 AM Number of tissue samples (in container) 1 Fresh Breast Specimen? No Biospecimen to store? No 06/23/21 1136 Fluids: Intraprocedure Crystalloid Total None PRBCs: none (See Anesthesia Record/Report for Other Blood Products) Urine Output: 350 mL Drains: 14 fr cabezas Disposition: awakened from anesthesia, extubated and taken to the recovery room in a stable condition, having suffered no apparent untoward event. Condition: doing well without problems (Please see the Surgical Encounter Summary for any Implant and Specimen details pertinent to this patient.) Surgical Infection Prevention Bundle Used? N/A Indication: Raymundo Tenorio is a 66 y.o. male w/ large left renal mass concerning for malignancy who presents today for left radical nephrectomy. Cystoscopy also to be performed for completion of hematuria workup. Procedure: The patient was identified in the pre-operative holding area. Consent was verified. The patient wastaken to the operating room and placed supine on the operating table. General anesthesia was induced. A timeout was performed involving all members of the OR team confirming the patient's identity and planned procedure. Preoperative antibiotics were administered. We began by performing the flexible cystoscopy. The patient's genitals were prepped and draped in standard fashion. A flexible cystoscope was inserted into the bladder. Anterior urethra was without abnormality. The prostate showed mild enlargement. Inspection of the bladder was negative for tumors or foreign bodies. The ureteral orifices were in orthotopic position. There was also no clot in the bladder. The scope was withdrawn. 14 Jamaican Cabezas catheter was placed using 10 cc of sterile water to inflate the balloon. This was placed to a gravity bag. The drapes were taken down. The patient's abdomen was shaved and prepped. The patient was then redraped for the nephrectomy portion of the case. Using a 10 blade, the a subcostal incision was made from the xiphoid process to the left lateral abdomen 2 fingerbreadths below the subcostal margin. Electrocautery was used to carry the incision down through the abdominal wall. The peritoneum was entered. The Omni retractor was placed and used to reflect the peritoneal contents medially. A large mass was palpable in the left kidney. The left colon was identified with some adhesions to the abdominal sidewall. Adhesions were taken down with electrocautery. There were also omental attachments superiorly to the abdominal sidewall which were released. We were able to enter the plane superficial to Gerota's fascia and reflect the colon medially off the anterior surface of the kidney. Once the colon had been medialized, we continued our dissection inferiorly to expose the lower pole of the kidney. We then worked superiorly to release the kidney from the splenic attachments with a combination of monopolar cautery and the LigaSure. We then continued to work on the anterior surface of the kidney to further reflect to the bowel medially. We encountered the renal vein and large left gonadal vein. The gonadal vein was taken with the LigaSure. At this point, the artery was palpable behind the vein, but further mobilization was needed to define the hilum. We dissected to the kidney laterally off the abdominal sidewall and continue to take down superior and inferior attachments. A window was created superior to the vein through which the artery could be isolated. A vascular staple load was used to divide the artery. A second vascular staple load was then used to divide the vein. An additional staple load was used medially to take remaining attachments. The kidney was then freed of any remaining attachments and the specimen was extracted. The specimen was sent to pathology. We returned our attention to the abdomen. Hemostasis was achieved using electrocautery. The hilum was inspected and was noted to be hemostatic. Surgi- Alexandro was placed around the hilum and the inferior aspect of the wound bed. We then turned our attention to closing the incision. The medial portion of the peritoneum was closed with 3-0 Vicryl in a running manner. The posterior sheath was then reapproximated using looped 0 PDS. The anterior sheath and external fascia laterally were then closed with 0 Vicryl interrupted sutures in a [id number] manner. The skin was then closed with 4-0 Monocryl in a running fashion. Sponge and instrument count was performed and was correct. The patient tolerated the procedure welland was awakened from anesthesia with no adverse events. The patient was taken to the recovery areain stable condition. Dr. Hou, the attending surgeon, was present for the entire procedure. Dawn Tello MD Associated attestation - Miles Hou MD - 06/23/2021 1:43 PM EST Attestation: Case Date: 06/23/2021 I was present and I participated during the entire procedure (does not need to include opening and closing). MILES HOU MD 06/23/2021 * Brief Op Note - Dawn Tello MD - 06/23/2021 12:14 PM EST Brief Operative Note Patient Name: Raymundo Tenorio : [id number] MR#: [id number] Case Date: 06/23/2021 Surgeon: Surgeon(s) and Role: * Miles Hou MD - Primary * Dawn Tello MD - Resident Preoperative diagnosis: RENAL MASS Postoperative diagnosis: RENAL MASS Procedure(s) (LRB): @NEPHRECTOMY, RADICAL W\REG LYMPHADENECTOMY &\OR VENA CAVA THROMBECTOMY (WRVU 23.81) (Left) CYSTO, CYSTOURETHROSCOPY, DIAGNOSTIC (WRVU 2.23) (N/A) Anesthesia: General + epidural Findings: left radical nephrectomy via subcostal incision, single artery and vein taken individually with stapler, adhesions superiorly, gonadal divided, ureter not definitively identified - likely taken with ligasure in inferior fatty tissue, closed in two layers Complications: none Estimated Blood Loss: 700cc Specimens removed during surgery: Intra-Procedure Orders (From admission, onward) Start Ordered 06/23/21 1140 Specimen to Pathology (Multiple Specimen to Pathology requests panel ) ONE TIME Question Answer Comment Clinical History and Diagnosis: RENAL MASS Specimen Source: Left Kidney Specimen Type: biopsy Time specimen removed from patient: 11:36 AM Number of tissue samples (in container) 1 Fresh Breast Specimen? No Biospecimen to store? No 06/23/21 1136 Fluids: Intraprocedure Crystalloid Total None PRBCs: none (See Anesthesia Record/Report for Other Blood Products) Urine Output: 350 mL Drains: 14 fr cabezas Disposition: awakened from anesthesia, extubated and taken to the recovery room in a stable condition, having suffered no apparent untoward event. Condition: doing well without problems (Please see the Surgical Encounter Summary for any Implant and Specimen details pertinent to this patient.) Surgical Infection Prevention Bundle Used? N/A Dawn Tello MD Associated attestation - Miles Hou MD - 06/23/2021 12:20 PM EST I was the attending physician supervising the resident in the above care and I was present with theresident for the entire procedure. documented in this encounter Plan of Treatment Upcoming Encounters Date Type Department Care Team (Late st Contact Info) Description 02/16/2024 9:15 AM EDT Laboratory Appointment Lab at [facility] Hematology Oncology [address] [place] [id number] 02/16/2024 10:20 AM EDT Hospital [place] [address] Mitali Griffiths APRN [facility] HEMATOLOGY AND ONCOLOGY [place] [address] 02/16/2024 1:30 PM EDT Office Visit Hematology [place] [address] Albino Bartholomew MD [facility] HEMATOLOGY AND ONCOLOGY [place] [address] 04/17/2024 10:00 AM EST Office Visit Dermatology at [facility] [address] [place] [address] Oli Winter MD [address] [facility] RD-DERMATOLOGY [place] [address] documented as of this encounter Procedures Procedure Name Priority Date/Time Associated Diagnosis Comments HEMOGRAM Routine 06/27/2021 1:34 AM EST DIFFERENTIAL, AUTOMATED Routine 06/27/19 1:34 AM EST HC VENIPUNCTURE Routine 06/27/2021 1:34 AM EST BASIC METABOLIC PANEL Routine 06/27/2021 1:34 AM EST COVID-19 PCR Routine 06/26/2021 5:46 AM EST HEMOGRAM Routine 06/26/2021 1:31 AM EST DIFFERENTIAL, AUTOMATED Routine 06/26/19 1:31 AM EST HC CBC,PLT & AUTO DIFF Routine 1:31 AM EST BASIC METABOLIC PANEL Routine 06/26/2021 1:31 AM EST HEMOGRAM Routine 06/25/2021 1:41 AM EST DIFFERENTIAL, AUTOMATED Routine 06/25/19 1:41 AM EST HC CBC,PLT & AUTO DIFF Routine 1:41 AM EST BASIC METABOLIC PANEL Routine 06/25/2021 1:41 AM EST HEMOGRAM Routine 06/24/2021 1:12 AM EST DIFFERENTIAL, AUTOMATED Routine 06/24/19 1:12 AM EST HC VENIPUNCTURE Routine 06/24/2021 1:12 AM EST BASIC METABOLIC PANEL Routine 06/24/2021 1:12 AM EST HEMOGRAM STAT 06/23/2021 12:45 PM EST DIFFERENTIAL, AUTOMATED STAT 06/23/19 12:45 PM EST HC CBC,PLT & AUTO DIFF STAT 12:45 PM EST BASIC METABOLIC PANEL Routine 06/23/2021 12:45 PM EST SURGICAL PATHOLOGY REPORT Routine 2021 11:37 AM EST SPECIMEN TO PATHOLOGY Routine 06/23/2021 11:37 AM EST BLOOD GAS ARTERIAL POC Routine 8:42 AM EST HC HEMOGRAM STAT 06/23/2021 8:30 AM EST PREPARE RBC STAT 06/23/2021 8:25 AM EST Cystourethroscopy (40085) Yes 2021 7:47 AM EST RENAL MASS Remv Kidney, Radical (24813) Yes 06/23/2021 7:47 AM EST RENAL MASS XR FLUORO NO RAD <1HR - OR USE Routine 06/23/2021 7:42 AM EST TYPE AND SCREEN VALIDITY Routine 022 7:15 AM EST HC ABO-MICROTITER Routine 06/23/2021 7:1 5 AM EST Renal mass ABO/RH TYPING Routine 06/23/2021 7:15 AM EST Renal mass ANTIBODY SCREEN Routine 06/23/2021 7:15 AM EST Renal mass RED TUBE HOLD Routine 06/23/2021 7:10 AM EST HEMOGRAM Routine 06/23/2021 7:10 AM EST Renal mass DIFFERENTIAL, AUTOMATED Routine 06/23/19 7:10 AM EST Renal mass HC CBC,PLT & AUTO DIFF Routine 7:10 AM EST Renal mass COMPREHENSIVE METABOLIC PANEL Routine 06/23/2021 7:10 AM EST Renal mass ABORH RECHECK STATUS Routine 06/23/2021 7:05 AM EST ANTIBODY SCREEN Routine 06/23/2021 7:05 AM EST TYPE AND SCREEN ([facility]) Routine 06/23/2021 7:05 AM EST EKG 12-LEAD Routine 06/23/2021 7:04 AM EST EKG 12-LEAD Routine 06/23/2021 7:03 AM EST Renal mass documented in this encounter Results * Differential, Automated (06/27/2021 1:34 AM EST) Neutrophil % 67.9 % [facility] Neutrophil Absolute 3.91 1.70 - 6.10 x10(3)/[facility] Lymph % 19.8 % [facility] Lymphocytes Abs 1.1 0.9 - 3.2 x10(3)/[facility] Monocyte % 6.1 % [facility] Monocyte Abs 0.4 0.3 - 0.9 x10(3)/[facility] Eos % 4.5 % [facility] Eosinophils Abs 0.3 0.0 - 0.4 x10(3)/[facility] Basophil % 1.2 % [facility] Baso Absolute 0.1 0.0 - 0.1 x10(3)/[facility] Immature Gran % 0.50 % [facility] Comment: Immature granulocytes(IG's)percentage and absolute count will include metamyelocytes, myelocytes, and promyelocytes. Blood smears from CBCs yielding IG's will be scanned manually for concordance. If this scan disagrees with the automated IG or if promyelocytes are noted, a manual differential will be performed. Immature Gran Absolute 0.03 0.00 - 0.04 x10(3)/[facility] Blood 06/27/2021 1:34 AM EST 06/27/2021 1:54 AM EST Narrative Resulting Agency Comment Spec In Lab Brando Boss MD HEMATOLOGY ORDERA BLES Performing Organization Address City/[facility]/ZIP Co de Phone Number [facility] [place] [address] * (ABNORMAL) Hemogram (06/27/2021 1:34 AM EST) White Blood Cell 5.8 4.0 - 9.5 x10(3)/mc L [facility] Red Blood Cell 3.49(L) 4.58 - 5.54 x10(6)/mc L [facility] Hemoglobin 9.6(L) 13.7 - 16.5 g/dL [facility] Hematocrit 29.7(L) 40.5 - 48.5 % [facility] Mean Cell Volume 85.1 82.9 - 93.1 fL [facility] Mean Cell Hemoglobin 27.5 27.5 - 32.1 pg [facility] Mean Cell Hemoglobin Concentration 32.3 32.0 - 35.7 g/dL [facility] Platelet 199 145 - 357 x10(3)/mc L [facility] RDW Standard Deviation 44.2 36.0 - 45.0 [facility] RDW coefficient of variation 14.5(H) 11.4 - 13.8 % [facility] Mean Platelet Volume 9.9 7.6 - 12.9 fL [facility] NRBC% auto 0.0 % [facility] NRBC Absolute 0.000 0.000 - 0.000 x10(3)/mc L [facility] Blood 06/27/2021 1:34 AM EST 06/27/2021 1:54 AM EST Narrative Resulting Agency Comment Spec In Lab Brando Boss MD HEMATOLOGY ORDERA BLES Performing Organization Address City/[facility]/ZIP Co de Phone Number [facility] [address] * Basic Metabolic Panel (non-fasting) (06/27/2021 1:34 AM EST) Glucose 134 65 - 199 mg/dL [facility] Comment:Diabetes: >=200 mg/d L plus symptoms Blood Urea Nitrogen 19 10 - 20 mg/dL [facility] Creatinine 1.22 0.80 - 1.50 mg/dL [facility] Sodium 140 135 - 145 mmol/L [facility] Potassium 3.7 3.5 - 5.0 mmol/L [facility] Comment: Please note: ??Patients with WBC >100,000 may have falsely elevated Potassium levels. ??For accurate Potassium quantification in these patients send serum separator tube (gold top) for subsequent determinations. ??Contact the Clinical Chemistry Laboratory if there are any questions. Chloride 106 98 - 107 mmol/L [facility] Carbon Dioxide 27 22 - 31 mmol/L [facility] Anion Gap 7 5 - 15 mmol/L [facility] Calcium 8.5 8.5 - 10.5 mg/dL [facility] Est Glomerular Filtration Rate 61 >=60 mL/min/1. 73 m?? [facility] Comment: This patient? s estimated glomerular filtration rate (eGFR) is between 61 mL/min/1.73 m2 (patients with less muscle mass per kg body weight) and 71 mL/min/1.73 m2 (patients with more muscle mass [...] and symptoms in addition to eGFR. Blood 06/27/2021 1:34 AM EST 06/27/2021 1:54 AM EST Narrative Resulting Agency Comment Spec In Lab Miles Hou MD CHEMISTRY ORDERABL ES [facility] [place] [address] * COVID-19 PCR (06/26/2021 5:46 AM EST) SARS-CoV-2 RNA Not Detected Not Detected [facility] Comment: This result should be interpreted in combination with the clinical observations, patient history and epidemiological information in making a final diagnosis. For testing of asymptomatic individuals, assay performance characteristics and clinical utility have not been evaluated. Testing for SARS-CoV-2 (Severe acute respiratory syndrome coronavirus 2, formerly known as 2019 novel coronavirus or 2019-nCoV) to aid in the diagnosis of COVID-19 is performed using the [employer] m SARS-CoV-2 Assay as authorized by the FDA Emergency Use Authorization (EUA). This EUA assay is intended for In-vitro Diagnostic (IVD) use with respiratory specimens such as nasopharyngeal swabs collected from individuals during the acute phase of infection. This assay is performed based on the instructions for use provided by [employer] and additional guidance provided by CDC and FDA. Testing is performed in the [facility] within the Department of Pathology and Laboratory Medicine at [facility], certified under the Clinical Laboratory Improvement Amendments of 1988 (CLIA), 42 U.S.C. 263a, to perform high complexity tests. Assay performance has been verified according to clinical laboratory regulatory requirements for use with specimens collected from individuals suspected of COVID-19. Test results are provided above. A result of Not Detected indicates that the viral RNA target is not present above the limit of detection, but does not preclude SARS-CoV-2 infection. False negative results may occur if a specimen is improperly collected, transported or handled; if amplification inhibitors are present; or if inadequate numbers of viral particles are present in the specimen. When a diagnostic test is negative, the possibility of a false negative result should be considered in the context of a patient's recent exposures and the presence of clinical signs and symptoms consistent with COVID-19. A result of Detected indicates that RNA from SARS-CoV-2 was detected and the patient is infected. As required or requested by public health authorities, positive specimens may be sent for additional testing. Positive and negative predictive values for this test are highly dependent on disease prevalence. A result of Invalid indicates that neither the viral RNA targets nor the internal control target was detected. An invalid result suggests the presence of inhibitors. Recollection and re-testing is recommended in the case of an invalid result. CDC COVID-19 criteria for testing on human specimens and clinical management guidance information are available at the CDC Coronavirus Disease 2019 (COVID-19) webpage under Information for Healthcare Professionals (https://www.cdc.gov/coronavirus/2019-ncov/hcp/index.html) Additional information about this and other EUA tests can be found in provider and patient fact sheets at the following FDA website: https://www.fda.gov/medical-devices/lszcpkeuijk-zloiine-5407-hqwse-09-qconnhgko- use-a vhmjqxvytbgie-stfmtoy-ieeqrqv/wbisq-isvvtcgfxly-hqjl SARS-CoV-2 RNA Source [employer] Swab [facility] Nasopharyngeal Swab 06/26/19 5:46 AM EST 06/26/2021 8:43 AM EST Comment:Symptoms->Surveillan ce Narrative Resulting Agency Comment Spec In Lab Miles Hou MD MOLECULAR ORDERABL ES [facility] [place] [id number] * (ABNORMAL) Differential, Automated (06/26/2021 1:31 AM EST) Neutrophil % 71.3 % [facility] Neutrophil Absolute 4.35 1.70 - 6.10 x10(3)/mc L [facility] Lymph % 18.3 % [facility] Lymphocytes Abs 1.1 0.9 - 3.2 x10(3)/mc L [facility] Monocyte % 5.9 % [facility] Monocyte Abs 0.4 0.3 - 0.9 x10(3)/mc L [facility] Eos % 2.6 % [facility] Eosinophils Abs 0.2 0.0 - 0.4 x10(3)/mc L [facility] Basophil % 0.8 % [facility] Baso Absolute 0.0 0.0 - 0.1 x10(3)/mc L [facility] Immature Gran % 1.10 % [facility] Comment: Immature granulocytes(IG's)percentage and absolute count will include metamyelocytes, myelocytes, and promyelocytes. Blood smears from CBCs yielding IG's will be scanned manually for concordance. If this scan disagrees with the automated IG or if promyelocytes are noted, a manual differential will be performed. Immature Gran Absolute 0.07(H) 0.00 - 0.04 x10(3)/[facility] Blood 06/26/2021 1:31 AM EST 06/26/2021 1:42 AM EST Narrative Resulting Agency Comment Spec In Lab Brando Boss MD HEMATOLOGY ORDERA BLES [facility] [place] [address] * (ABNORMAL) Hemogram (06/26/2021 1:31 AM EST) White Blood Cell 6.1 4.0 - 9.5 x10(3)/[facility] Red Blood Cell 3.07(L) 4.58 - 5.54 x10(6)/[facility] Hemoglobin 8.6(L) 13.7 - 16.5 g/dL [facility] Hematocrit 26.5(L) 40.5 - 48.5 % [facility] Mean Cell Volume 86.3 82.9 - 93.1 fL [facility] Mean Cell Hemoglobin 28.0 27.5 - 32.1 pg [facility] Mean Cell Hemoglobin Concentration 32.5 32.0 - 35.7 g/dL [facility] Platelet 166 145 - 357 x10(3)/[facility] RDW Standard Deviation 46.5(H) 36.0 - 45.0 fL [facility] RDW coefficient of variation 14.6(H) 11.4 - 13.8 % [facility] Mean Platelet Volume 9.8 7.6 - 12.9 fL [facility] NRBC% auto 0.0 % [facility] NRBC Absolute 0.000 0.000 - 0.000 x10(3)/mc L [facility] Blood 06/26/2021 1:31 AM EST 06/26/2021 1:42 AM EST Narrative Resulting Agency Comment Spec In Lab Brando Boss MD HEMATOLOGY ORDERA BLES [facility] [place] [address] * (ABNORMAL) Basic Metabolic Panel (non-fasting) (06/26/2021 1:31 AM EST) Glucose 102 65 - 199 mg/dL [facility] Comment:Diabetes: >=200 mg/d L plus symptoms Blood Urea Nitrogen 18 10 - 20 mg/dL [facility] Creatinine 1.11 0.80 - 1.50 mg/dL [facility] Sodium 138 135 - 145 mmol/L [facility] Potassium 4.0 3.5 - 5.0 mmol/L [facility] Comment: Please note: ??Patients with WBC >100,000 may have falsely elevated Potassium levels. ??For accurate Potassium quantification in these patients send serum separator tube (gold top) for subsequent determinations. ??Contact the Clinical Chemistry Laboratory if there are any questions. Chloride 108(H) 98 - 107 mmol/L [facility] Carbon Dioxide 23 22 - 31 mmol/L [facility] Anion Gap 7 5 - 15 mmol/L [facility] Calcium 8.2(L) 8.5 - 10.5 mg/dL [facility] Est Glomerular Filtration Rate 69 >=60 mL/min/1. 73 m?? [facility] Comment: This patient? s estimated glomerular filtration rate (eGFR) is between 69 mL/min/1.73 m2 (patients with less muscle mass per kg body weight) and 80 mL/min/1.73 m2 (patients with more muscle mass [...] and symptoms in addition to eGFR. Blood 06/26/2021 1:31 AM EST 06/26/2021 1:42 AM EST Narrative Resulting Agency Comment Spec In Lab Miles Hou MD CHEMISTRY ORDERABL ES [facility] [place] [address] * Differential, Automated (06/25/2021 1:41 AM EST) Neutrophil % 76.0 % [facility] Neutrophil Absolute 5.35 1.70 - 6.10 x10(3)/[facility] Lymph % 16.2 % [facility] Lymphocytes Abs 1.1 0.9 - 3.2 x10(3)/[facility] Monocyte % 5.5 % [facility] Monocyte Abs 0.4 0.3 - 0.9 x10(3)/[facility] Eos % 1.3 % [facility] Eosinophils Abs 0.1 0.0 - 0.4 x10(3)/[facility] Basophil % 0.6 % [facility] Baso Absolute 0.0 0.0 - 0.1 x10(3)/[facility] Immature Gran % 0.40 % [facility] Comment: Immature granulocytes(IG's)percentage and absolute count will include metamyelocytes, myelocytes, and promyelocytes. Blood smears from CBCs yielding IG's will be scanned manually for concordance. If this scan disagrees with the automated IG or if promyelocytes are noted, a manual differential will be performed. Immature Gran Absolute 0.03 0.00 - 0.04 x10(3)/mcL [facility] Blood 06/25/2021 1:41 AM EST 06/25/2021 2:12 AM EST Narrative Resulting Agency Comment Spec In Lab Brando Boss MD HEMATOLOGY ORDERA BLES Performing Organization Address City/State/[facility] Co de Phone Number [facility] [place] [address] * (ABNORMAL) Hemogram (06/25/2021 1:41 AM EST) White Blood Cell 7.0 4.0 - 9.5 x10(3)/[facility] Red Blood Cell 3.22(L) 4.58 - 5.54 x10(6)/[facility] Hemoglobin 8.9(L) 13.7 - 16.5 g/dL [facility] Hematocrit 27.4(L) 40.5 - 48.5 % [facility] Mean Cell Volume 85.1 82.9 - 93.1 fL [facility] Mean Cell Hemoglobin 27.6 27.5 - 32.1 pg [facility] Mean Cell Hemoglobin Concentration 32.5 32.0 - 35.7 g/dL [facility] Platelet 154 145 - 357 x10(3)/[facility] RDW Standard Deviation 45.1(H) 36.0 - 45.0 [facility] RDW coefficient of variation 14.6(H) 11.4 - 13.8 % [facility] Mean Platelet Volume 10.2 7.6 - 12.9 fL [facility] NRBC% auto 0.0 % [facility] NRBC Absolute 0.000 0.000 - 0.000 x10(3)/ L [facility] Blood 06/25/2021 1:41 AM EST 06/25/2021 2:12 AM EST Narrative Resulting Agency Comment Spec In Lab Brando Boss MD HEMATOLOGY ORDERA BLES [facility] [place] [address] * (ABNORMAL) Basic Metabolic Panel (non-fasting) (06/25/2021 1:41 AM EST) Glucose 92 65 - 199 mg/dL [facility] Comment:Diabetes: >=200 mg/d L plus symptoms Blood Urea Nitrogen 21(H) 10 - 20 mg/dL [facility] Creatinine 1.32 0.80 - 1.50 mg/dL [facility] Sodium 137 135 - 145 mmol/L [facility] Potassium 4.5 3.5 - 5.0 mmol/L [facility] Comment: Please note: ??Patients with WBC >100,000 may have falsely elevated Potassium levels. ??For accurate Potassium quantification in these patients send serum separator tube (gold top) for subsequent determinations. ??Contact the Clinical Chemistry Laboratory if there are any questions. Chloride 107 98 - 107 mmol/L [facility] Carbon Dioxide 23 22 - 31 mmol/L [facility] Anion Gap 7 5 - 15 mmol/L [facility] Calcium 8.4(L) 8.5 - 10.5 mg/dL [facility] Est Glomerular Filtration Rate 56(L) >=60 mL/min/1. 73 m?? [facility] Comment: This patient? s estimated glomerular filtration rate (eGFR) is between 56 mL/min/1.73 m2 (patients with less muscle mass per kg body weight) and 65 mL/min/1.73 m2 (patients with more muscle mass [...] and symptoms in addition to eGFR. Blood 06/25/2021 1:41 AM EST 06/25/2021 2:11 AM EST Narrative Resulting Agency Comment Spec In Lab Miles Hou MD CHEMISTRY ORDERABL ES [facility] [place] [address] * (ABNORMAL) Differential, Automated (06/24/2021 1:12 AM EST) Neutrophil % 86.5 % [facility] Neutrophil Absolute 9.85(H) 1.70 - 6.10 x10(3)/mc L [facility] Lymph % 7.1 % [facility] Lymphocytes Abs 0.8(L) 0.9 - 3.2 x10(3)/mc L [facility] Monocyte % 5.7 % [facility] Monocyte Abs 0.6 0.3 - 0.9 x10(3)/mc L [facility] Eos % 0.0 % [facility] Eosinophils Abs 0.0 0.0 - 0.4 x10(3)/mc L [facility] Basophil % 0.3 % [facility] Baso Absolute 0.0 0.0 - 0.1 x10(3)/mc L [facility] Immature Gran % 0.40 % [facility] Comment: Immature granulocytes(IG's)percentage and absolute count will include metamyelocytes, myelocytes, and promyelocytes. Blood smears from CBCs yielding IG's will be scanned manually for concordance. If this scan disagrees with the automated IG or if promyelocytes are noted, a manual differential will be performed. Immature Gran Absolute 0.04 0.00 - 0.04 x10(3)/mc L [facility] Blood 06/24/2021 1:12 AM EST 06/24/2021 1:28 AM EST Narrative Resulting Agency Comment Spec In Lab Brando Boss MD HEMATOLOGY ORDERA BLES [facility] [place] [address] * (ABNORMAL) Hemogram (06/24/2021 1:12 AM EST) White Blood Cell 11.4(H) 4.0 - 9.5 x10(3)/mc L [facility] Red Blood Cell 3.51(L) 4.58 - 5.54 x10(6)/mc L [facility] Hemoglobin 9.7(L) 13.7 - 16.5 g/dL [facility] Comment: This result has been called to BERNARDINO PAYAN by Noreen Streeter on 06 24 2021 at 0219, and has been read back. Hematocrit 30.4(L) 40.5 - 48.5 % [facility] Mean Cell Volume 86.6 82.9 - 93.1 fL [facility] Mean Cell Hemoglobin 27.6 27.5 - 32.1 pg [facility] Mean Cell Hemoglobin Concentration 31.9(L) 32.0 - 35.7 g/dL [facility] Platelet 186 145 - 357 x10(3)/mc L [facility] RDW Standard Deviation 46.0(H) 36.0 - 45.0 fL [facility] RDW coefficient of variation 14.6(H) 11.4 - 13.8 % [facility] Mean Platelet Volume 9.9 7.6 - 12.9 fL [facility] NRBC% auto 0.0 % [facility] NRBC Absolute 0.000 0.000 - 0.000 x10(3)/ L [facility] Blood 06/24/2021 1:12 AM EST 06/24/2021 1:28 AM EST Narrative Resulting Agency Comment Spec In Lab Brando Boss MD HEMATOLOGY ORDERMikaela STRATTON [facility] [place] [address] * (ABNORMAL) Basic Metabolic Panel (non-fasting) (06/24/2021 1:12 AM EST) Glucose 129 65 - 199 mg/dL [facility] Comment:Diabetes: >=200 mg/d L plus symptoms Blood Urea Nitrogen 22(H) 10 - 20 mg/dL [facility] Creatinine 1.31 0.80 - 1.50 mg/dL [facility] Sodium 136 135 - 145 mmol/L [facility] Potassium 5.3(H) 3.5 - 5.0 mmol/L [facility] Comment: Please note: ??Patients with WBC >100,000 may have falsely elevated Potassium levels. ??For accurate Potassium quantification in these patients send serum separator tube (gold top) for subsequent determinations. ??Contact the Clinical Chemistry Laboratory if there are any questions. Chloride 105 98 - 107 mmol/L [facility] Carbon Dioxide 23 22 - 31 mmol/L [facility] Anion Gap 8 5 - 15 mmol/L [facility] Calcium 8.6 8.5 - 10.5 mg/dL [facility] Est Glomerular Filtration Rate 56(L) >=60 mL/min/1. 73 m?? [facility] Comment: This patient? s estimated glomerular filtration rate (eGFR) is between 56 mL/min/1.73 m2 (patients with less muscle mass per kg body weight) and 65 mL/min/1.73 m2 (patients with more muscle mass [...] and symptoms in addition to eGFR. Blood 06/24/2021 1:12 AM EST 06/24/2021 1:28 AM EST Narrative Resulting Agency Comment Spec In Lab Miles Hou MD CHEMISTRY ORDERABL ES [facility] [place] [place] [address] * (ABNORMAL) Differential, Automated (06/23/2021 12:45 PM EST) Neutrophil % 91.4 % [facility] Neutrophil Absolute 7.70(H) 1.70 - 6.10 x10(3)/mc L [facility] Lymph % 5.6 % [facility] Lymphocytes Abs 0.5(L) 0.9 - 3.2 x10(3)/mc L [facility] Monocyte % 2.1 % [facility] Monocyte Abs 0.2(L) 0.3 - 0.9 x10(3)/mc L [facility] Eos % 0.2 % [facility] Eosinophils Abs 0.0 0.0 - 0.4 x10(3)/mc L [facility] Basophil % 0.5 % [facility] Baso Absolute 0.0 0.0 - 0.1 x10(3)/mc L [facility] Immature Gran % 0.20 % [facility] Comment: Immature granulocytes(IG's)percentage and absolute count will include metamyelocytes, myelocytes, and promyelocytes. Blood smears from CBCs yielding IG's will be scanned manually for concordance. If this scan disagrees with the automated IG or if promyelocytes are noted, a manual differential will be performed. Immature Gran Absolute 0.02 0.00 - 0.04 x10(3)/mc L [facility] Blood 06/23/2021 12:4 5 PM EST 06/23/2021 1:11 PM EST Narrative Resulting Agency Comment Spec In Lab Dawn Tello MD HEMATOLOGY ORDERABLE S [facility] [place] [address] * (ABNORMAL) Hemogram (06/23/2021 12:45 PM EST) White Blood Cell 8.4 4.0 - 9.5 x10(3)/mc L [facility] Red Blood Cell 4.55(L) 4.58 - 5.54 x10(6)/mc L [facility] Hemoglobin 12.6(L) 13.7 - 16.5 g/dL [facility] Hematocrit 38.6(L) 40.5 - 48.5 % [facility] Mean Cell Volume 84.8 82.9 - 93.1 fL [facility] Mean Cell Hemoglobin 27.7 27.5 - 32.1 pg [facility] Mean Cell Hemoglobin Concentration 32.6 32.0 - 35.7 g/dL [facility] Platelet 157 145 - 357 x10(3)/mc L [facility] RDW Standard Deviation 45.2(H) 36.0 - 45.0 fL [facility] RDW coefficient of variation 14.7(H) 11.4 - 13.8 % [facility] Mean Platelet Volume 9.6 7.6 - 12.9 fL [facility] NRBC% auto 0.0 % [facility] NRBC Absolute 0.000 0.000 - 0.000 x10(3)/mc L [facility] Blood 06/23/2021 12:4 5 PM EST 06/23/2021 1:11 PM EST Narrative Resulting Agency Comment Spec In Lab Dawn Tello MD HEMATOLOGY ORDERABLE S [facility] [place] [address] * (ABNORMAL) Basic Metabolic Panel (non-fasting) (06/23/2021 12:45 PM EST) Glucose 169 65 - 199 mg/dL [facility] Comment:Diabetes: >=200 mg/d L plus symptoms Blood Urea Nitrogen 20 10 - 20 mg/dL [facility] Creatinine 1.21 0.80 - 1.50 mg/dL [facility] Sodium 134(L) 135 - 145 mmol/L [facility] Potassium 4.3 3.5 - 5.0 mmol/L [facility] Comment: Please note: ??Patients with WBC >100,000 may have falsely elevated Potassium levels. ??For accurate Potassium quantification in these patients send serum separator tube (gold top) for subsequent determinations. ??Contact the Clinical Chemistry Laboratory if there are any questions. Chloride 105 98 - 107 mmol/L [facility] Carbon Dioxide 20(L) 22 - 31 mmol/L [facility] Anion Gap 9 5 - 15 mmol/L [facility] Calcium 9.1 8.5 - 10.5 mg/dL [facility] Est Glomerular Filtration Rate 62 >=60 mL/min/1. 73 m?? [facility] Comment: This patient? s estimated glomerular filtration rate (eGFR) is between 62 mL/min/1.73 m2 (patients with less muscle mass per kg body weight) and 72 mL/min/1.73 m2 (patients with more muscle mass [...] and symptoms in addition to eGFR. Blood 06/23/2021 12:4 5 PM EST 06/23/2021 1:11 PM EST Narrative Resulting Agency Comment Spec In Lab Miles Hou MD CHEMISTRY ORDERABL ES [facility] [place] [address] * Surgical Pathology Report (06/23/2021 11:37 AM EST) Final Diagnosis [id number] ? [facility]; A The signing pathologist has (i) examined the relevant preparation(s) for the specimen(s) and (ii) rendered or confirmed the diagnosis(es). . ? Addendum ADDENDUM DISCUSSION Immunostains on block A4 show the tumor cells are positive for Pax8, E-cadherin, CD10 (membranous staining), and CAIX (membranous staining), partially positive for RANJIT and p504S, and negative for CKIT, CK7 and [...] morphology, histopathological criteria and other diagnostic tests. Electronically signed by: ?Renea Acuna MD Verified: ??07/02/2021 11:14 ??Pathologist Performed at: ??-[facility] Dept. of Pathology, [place], [place] ?Surgical Pathology DIAGNOSIS A - Left Kidney, biopsy (1) Clear cell renal cell carcinoma, pT3a N1, see synoptic report. Electronically signed by: ?Renea Acuna MD Verified: ??07/02/2021 10:38 ??Pathologist Performed at: ??-[facility] Dept. of Pathology, [place], [place] SYNOPTIC Specimen Parts: ??A Specimen ? Procedure: ??Radical nephrectomy ? Specimen Laterality: ??Left Tumor ? Tumor Focality: ??Unifocal ? Tumor Site: ??Middle; ??Lower pole ? Tumor Size: ??17 Centimeters (cm) ? Histologic Type: ??Clear cell renal cell carcinoma ? Histologic Grade (WHO / ISUP): ??G4 ? Tumor Extent: ??Extends into perinephric tissue (beyond renal capsule); ? Extends into renal sinus; ??Extends into major vein (renal vein or its ?segmental branches, inferior vena cava); ??Extends into pelvicalyceal system ? Sarcomatoid Features: ??Not identified ? Rhabdoid Features: ??Present ? Tumor Necrosis: ??Present ?Percentage of Tumor Necrosis: ??10% ? Lymphovascular Invasion: ??Present Margins ? Margin Status: ??All margins negative for invasive carcinoma Regional Lymph Nodes ? Regional Lymph Node Status: ??Tumor present in regional lymph node(s) ?Number of Lymph Nodes with Tumor: ??1 ?Robert Site(s) with Tumor: ??Hilar ?Size of Largest Robert Metastatic Deposit: ??Less than 0.1 cm . SYNOPTIC ?Size of Largest Lymph Node with Tumor: ??0.7 cm ? Number of Lymph Nodes Examined: ??3 Pathologic Stage Classification (pTNM, AJCC 8th Edition) ? Primary Tumor (pT): ??pT3a ? Regional Lymph Nodes (pN): ??pN1 Additional Findings ? Additional Findings in Nonneoplastic Kidney: ??None identified Additional Non-Tumor ? Adrenal Gland: ??Not present Tumor Block(s): ??A3 to A16 Normal Block(s): ??A17 CAP eCC October 2020 Release ADDITIONAL STUDIES Whole slide scan: [id number] A3-1 [id number] A4-1 [id number] A6-1 [id number] A8-1 [id number] SPECIMEN(S) SUBMITTED A - Left Kidney, biopsy (1) CLINICAL INFORMATION Renal mass SPECIMEN PROCESSING A - Labeled/Fixative: Left kidney, fresh. Quantity/Size/Weight : Single, 21 x 18 x 10 cm, 2453 g. SPECIMEN DESCRIPTION Resection Specimen: Intact, left, nephrectomy. LESION Size: 17 x 16 x 9.5 cm. Location: Obliterates the mid and lower pole Color: [place]-yellow to red-brown and hemorrhagic. Consistency: soft. Contour: Infiltrative. Focality: Unifocal. DIRECT EXTENSION Tumor directly invades renal sinus fat. Tumor invades pelvic calyceal system. Tumor within renal vein. Tumor invades perinephric fat. Gerota 's fascia: Intact, uninvolved. Major vein(s) (renal vein or its segmental branches, inferior vena cava): Tumor thrombus within renal vein. Renal pelvis and mucosa: Tumor obliterates the mid and lower calyces with extensive involvement of the renal pelvis. MARGINS Renal vein: 1.0 cm. Ureter: 6.0 cm. Soft tissue: 0.1 cm. Gerota 's fascia: Less than 0.1 cm. KIDNEY Size: 18.5 x 17 x 10 cm. Parenchyma: The corticomedulary is well-defined where present. There is a 1.9 x 1.0 x 0.8 cm tinajero-yellow calculus within the upper calyx. Ureter: 6.5 x 0.3 cm. OTHER Lymph Nodes: 3 lymph nodes measuring 0.9 to 1.6 cm. . SPECIMEN PROCESSING Inking: The perinephric soft tissues inked black. Sections/Processing: Operations Forester sections in 20 cassettes as follows: ?A1: ??Ureter margin ?A2: ??Vascular margins ?A3: ??Longitudinal section of tumor within renal vein ?A4-A5: ??Tumor within renal pelvis ?A6-A7: ??Tumor in relation to hilar fat margin ?A8-A10: ??Tumor in relation to perinephric fat margin ?A11-A12: ??Tumor in relation to Gerota's fascia ?A13: ??Tumor within renal sinus fat ?A14: ??Tumor with ??adjacent parenchyma ?A15-A16: ??Operations Forester areas of tumor heterogeneity ?A17: ??Uninvolved upper pole ?A18-A19: ??Single bisected perihilar lymph node in each cassette ?A20: ??Single intact candidate perihilar lymph node ??ajw 07/02/2021 11:14 AM EST [facility] SPECIMEN FROM KIDNEY / Unknown 06/23/2021 11:37 AM EST 06/23/2021 11:37 AM EST Miles Hou MD PATHOLOGY/CYTOLOGY ORDERABLES Performing Organization Address [facility] Co de Phone Number [facility] [place] [address] * Specimen to Pathology (06/23/2021 11:37 AM EST) AP Specimen 06/23/2021 11:3 7 AM EST 06/23/2021 11:37 AM EST Narrative [facility] - 06/23/2021 11:37 AM EST Specimen requisition ordered. ??Separate Pathology report to follow Miles Hou MD PATHOLOGY/CYTOLOGY ORDERABLES Performing Organization Address [facility] Co de Phone Number [facility] [place] [address] * (ABNORMAL) BLOOD GAS 2 ARTERIAL (06/23/2021 8:42 AM EST) pH, Arterial 7.42 7.35 - 7.45 [facility] PCO2, Arterial 36 35 - 45 mmHg [facility] PO2, Arterial 245(H) 85 - 104 mmHg [facility] Bicarbonate, Arterial 23.1 20.0 - 26.0 mmol/L [facility] Base Excess, Arterial -1.3 -3.0 - 3.0 mmol/L [facility] Hgb Blood Gas 11.1(L) 13.7 - 16.5 g/dL [facility] Oxyhemoglobin, Arterial 99.0(H) 94.0 - 97.0 % [facility] Carboxyhemoglob in, Arterial 0.1 % [facility] Comment: Nonsmokers: 0.5-1.5% COHB Smokers: Variable, but usually less than 10% Toxic: 20-30% COHB Lethal: Greater than 60% COHB Methemoglobin, Arterial 0.3 <=1.5 % [facility] Na Whole Blood 136 135 - 145 mmol/L [facility] K Whole Blood 4.0 3.5 - 5.0 mmol/L [facility] Comment: Please note: Patients with WBC >100,000 may have falsely elevated Potassium levels. Contact the Clinical Chemistry Laboratory if there are any questions. ICa Whole Blood 1.29 1.15 - 1.33 mmol/L [facility] Comment: Note: ??Total bilirubin higher than 20 mg/dL may lead to falsely low ionized calcium. CL Whole Blood 106 98 - 107 mmol/L [facility] Gluc Whole Bld 103 65 - 199 mg/dL [facility] Comment:Diabetes: >=200 mg/d L plus symptoms. Lactate WB 1.1 0.5 - 2.2 mmol/L [facility] FIO2 Art 60 % [facility] PF Ratio Art 408 [facility] Blood 06/23/2021 8:42 AM EST 06/23/2021 8:42 AM EST Miles Hou MD POINT OF CARE TEST ORDERABLES [facility] [place] [address] * (ABNORMAL) Hemogram (06/23/2021 8:30 AM EST) White Blood Cell 5.8 4.0 - 9.5 x10(3)/mc L [facility] Red Blood Cell 3.90(L) 4.58 - 5.54 x10(6)/mc L [facility] Hemoglobin 10.7(L) 13.7 - 16.5 g/dL [facility] Hematocrit 33.3(L) 40.5 - 48.5 % [facility] Comment: This result has been called to EMERALD WATTS by PIOTR HEBERT on 06 23 2021 at 0900, and has been read back. Mean Cell Volume 85.4 82.9 - 93.1 fL [facility] Mean Cell Hemoglobin 27.4(L) 27.5 - 32.1 pg [facility] Mean Cell Hemoglobin Concentration 32.1 32.0 - 35.7 g/dL [facility] Platelet 190 145 - 357 x10(3)/mc L [facility] RDW Standard Deviation 45.9(H) 36.0 - 45.0 fL [facility] RDW coefficient of variation 14.7(H) 11.4 - 13.8 % [facility] Mean Platelet Volume 9.9 7.6 - 12.9 fL [facility] NRBC% auto 0.0 % [facility] NRBC Absolute 0.000 0.000 - 0.000 x10(3)/mc L [facility] Blood 06/23/2021 8:30 AM EST 06/23/2021 8:53 AM EST Narrative Resulting Agency Comment Spec In Lab Erica Alves MD HEMATOLOGY ORDERABLE S [facility] [place] [address] * Prepare RBC (06/23/2021 8:25 AM EST) Dispensed? Yes [facility] Blood 06/23/2021 8:25 AM EST 06/23/2021 8:25 AM EST Miles Hou MD BLOOD BANK PRODUCT ORDERABLES Performing Organization Address City/[facility]/ZIP Co de Phone Number [facility] [place] [address] * XR Fluoro No Rad <1Hr - OR Use (06/23/2021 7:42 AM EST) Narrative Dicom, Auditing User - 06/23/2021 7:57 AM EST This exam is auto-finalizing. No interpretation was done. Miles Hou MD IMG FLUORO ORDERAB LES * Type and Screen Validity (06/23/2021 7:15 AM EST) T&S only valid at [facility] Comment:This Type and Screen result is only valid at the [facility] Blood 06/23/2021 7:15 AM EST 06/23/2021 7:32 AM EST Narrative Resulting Agency Comment Spec In Lab Miles Hou MD BLOOD BANK LAB ORD ERABLES Performing Organization Address City/[facility]/ZIP Co de Phone Number [facility] [place] [address] * Antibody screen (06/23/2021 7:15 AM EST) Ab Screen Interp Negative [facility] Expires at [id number] on: 06/26/2021 [facility] Blood 06/23/2021 7:15 AM EST 06/23/2021 7:32 AM EST Narrative Resulting Agency Comment Spec In Lab Miles Hou MD BLOOD BANK LAB ORD ERABLES [facility] [place] [address] * ABO/Rh Typing (06/23/2021 7:15 AM EST) ABORH Type A Pos [facility] Blood 06/23/2021 7:15 AM EST 06/23/2021 7:32 AM EST Narrative Resulting Agency Comment Spec In Lab Miles Hou MD BLOOD BANK LAB ORD ERABLES Performing Organization Address [facility]/ZIP Co de Phone Number [facility] [place] [address] * Red Tube Hold (06/23/2021 7:10 AM EST) Pathologist [facility] Red Hold Sample in lab. [facility] Blood No Charge / Unknown 06/23/2021 7:10 AM EST 06/23/2021 8:06 AM EST Miles Hou MD CHEMISTRY ORDERABL ES Performing Organization Address [facility] Co de Phone Number [facility] [place] [address] * Differential, Automated (06/23/2021 7:10 AM EST) Neutrophil % 70.9 % [facility] Neutrophil Absolute 5.93 1.70 - 6.10 x10(3)/[facility] Lymph % 17.1 % [facility] Lymphocytes Abs 1.4 0.9 - 3.2 x10(3)/[facility] Monocyte % 7.8 % [facility] Monocyte Abs 0.6 0.3 - 0.9 x10(3)/[facility] Eos % 2.8 % [facility] Eosinophils Abs 0.2 0.0 - 0.4 x10(3)/[facility] Basophil % 1.2 % [facility] Baso Absolute 0.1 0.0 - 0.1 x10(3)/[facility] Immature Gran % 0.20 % [facility] Comment: Immature granulocytes(IG's)percentage and absolute count will include metamyelocytes, myelocytes, and promyelocytes. Blood smears from CBCs yielding IG's will be scanned manually for concordance. If this scan disagrees with the automated IG or if promyelocytes are noted, a manual differential will be performed. Immature Gran Absolute 0.02 0.00 - 0.04 x10(3)/[facility] Blood 06/23/2021 7:10 AM EST 06/23/2021 8:04 AM EST Narrative Resulting Agency Comment Spec In Lab Miles Hou MD HEMATOLOGY ORDERAB LES [facility] [place] [address] * (ABNORMAL) Hemogram (06/23/2021 7:10 AM EST) White Blood Cell 8.4 4.0 - 9.5 x10(3)/mc L [facility] Red Blood Cell 2.42(L) 4.58 - 5.54 x10(6)/mc L [facility] Hemoglobin 6.7(L) 13.7 - 16.5 g/dL [facility] Hematocrit 20.9(L) 40.5 - 48.5 % [facility] Comment: This result has been called to EMERALD WATTS by Milton Godinez on 06 23 2021 at 0821, and has been read back. Mean Cell Volume 86.4 82.9 - 93.1 fL [facility] Mean Cell Hemoglobin 27.7 27.5 - 32.1 pg [facility] Mean Cell Hemoglobin Concentration 32.1 32.0 - 35.7 g/dL [facility] Platelet 279 145 - 357 x10(3)/mc L [facility] RDW Standard Deviation 47.1(H) 36.0 - 45.0 fL [facility] RDW coefficient of variation 14.8(H) 11.4 - 13.8 % [facility] Mean Platelet Volume 10.1 7.6 - 12.9 fL [facility] NRBC% auto 0.0 % [facility] NRBC Absolute 0.000 0.000 - 0.000 x10(3)/mc L [facility] Blood 06/23/2021 7:10 AM EST 06/23/2021 8:04 AM EST Narrative Resulting Agency Comment Spec In Lab Miles Hou MD HEMATOLOGY ORDERAB LES [facility] [place] [address] * (ABNORMAL) Comprehensive metabolic panel (non-fasting) (06/23/2021 7:10 AM EST) Glucose 93 65 - 199 mg/dL [facility] Comment:Diabetes: >=200 mg/d L plus symptoms Blood Urea Nitrogen 20 10 - 20 mg/dL [facility] Creatinine 1.28 0.80 - 1.50 mg/dL [facility] Sodium 137 135 - 145 mmol/L [facility] Potassium 4.2 3.5 - 5.0 mmol/L [facility] Comment: Please note: ??Patients with WBC >100,000 may have falsely elevated Potassium levels. ??For accurate Potassium quantification in these patients send serum separator tube (gold top) for subsequent determinations. ??Contact the Clinical Chemistry Laboratory if there are any questions. Chloride 106 98 - 107 mmol/L [facility] Carbon Dioxide 21(L) 22 - 31 mmol/L [facility] Anion Gap 10 5 - 15 mmol/L [facility] Calcium 10.0 8.5 - 10.5 mg/dL [facility] Protein, Total 7.3 6.1 - 8.0 g/dL [facility] Albumin 3.7 3.2 - 5.2 g/dL [facility] Aspartate Aminotransferase 20 0 - 39 unit/L [facility] Alanine Aminotransferase 30 0 - 55 unit/L [facility] Alkaline Phosphatase 129 40 - 130 unit/L [facility] Bilirubin, Total 0.6 0.2 - 1.3 mg/dL [facility] Est Glomerular Filtration Rate 58(L) >=60 mL/min/1. 73 m?? [facility] Comment: This patient? s estimated [...] and symptoms in addition to eGFR. Blood 06/23/2021 7:10 AM EST 06/23/2021 8:04 AM EST Narrative Resulting Agency Comment Spec In Lab Miles Hou MD CHEMISTRY ORDERABL ES [facility] [place] [address] * ABORH Recheck Status (06/23/2021 7:05 AM EST) ABORH Recheck Order Order Placed [facility] ABORH Type Recheck Complete [facility] Blood 06/23/2021 7:05 AM EST 06/23/2021 7:09 AM EST Narrative Resulting Agency Comment Spec In Lab Dawn Tello MD BLOOD BANK LAB ORDER RADHA [facility] [place] [address] * Antibody screen (06/23/2021 7:05 AM EST) Ab Screen Interp Not Performed [facility] Expires at 2359 on: 06/26/2021 [facility] Blood 06/23/2021 7:05 AM EST 06/23/2021 7:09 AM EST Narrative Resulting Agency Comment Spec In Lab Dawn Tello MD BLOOD BANK LAB ORDER RADHA Performing Organization Address City/[facility]/ZIP Co de Phone Number [facility] [place] [address] * EKG 12 Lead (06/23/2021 7:04 AM EST) Ventricular rate 76 BPM MUSE SYSTEM Atrial Rate 76 BPM MUSE SYSTEM P-R Interval 228 ms MUSE SYSTEM QRS Duration 90 ms MUSE SYSTEM Q-T Interval 384 ms MUSE SYSTEM QTC Calculated (Bezet) 432 ms MUSE SYSTEM Calculated P Sutton 31 degrees MUSE SYSTEM Calculated R Sutton 33 degrees MUSE SYSTEM Calculated T Sutton 32 degrees MUSE SYSTEM INTERPRETATION Sinus rhythm with 1st degree A-V block Left atrial enlargement Septal infarct (cited on or before 23-JUN-2021) Abnormal ECG When compared with ECG of 23-JUN-2021 07:03, (unconfirmed) No significant change was found Confirmed by genevieve Orellana MD, Luisito ([id number]) on 06/23/2021 2:47:30 PM Confirmed by MD Jt, Mario ([id number]) on 06/23/2021 4:10:38 PM MUSE SYSTEM 06/23/2021 7:04 AM EST 06/23/2021 4:10 PM EST Unknown ECG ORDERABLES Performing Organization Address City/[facility]/ZIP Co de Phone Number MUSE SYSTEM * EKG 12 Lead (06/23/2021 7:03 AM EST) Ventricular rate 77 BPM MUSE SYSTEM Atrial Rate 77 BPM MUSE SYSTEM P-R Interval 228 ms MUSE SYSTEM QRS Duration 92 ms MUSE SYSTEM Q-T Interval 384 ms MUSE SYSTEM QTC Calculated (Bezet) 434 ms MUSE SYSTEM Calculated P Sutton 24 degrees MUSE SYSTEM Calculated R Sutton 33 degrees MUSE SYSTEM Calculated T Sutton 30 degrees MUSE SYSTEM INTERPRETATION Sinus rhythm with 1st degree A-V block Septal infarct , age undetermined Abnormal ECG No previous ECGs available Confirmed by fellow MD Ryena, Luisito ([id number]) on 06/23/2021 1:55:29 PM Confirmed by MD Waters Jon ([id number]) on 06/23/2021 2:05:10 PM MUSE SYSTEM 06/23/2021 7:03 AM EST 06/23/2021 2:05 PM EST Miles Hou MD ECG ORDERABLES MUSE SYSTEM documented in this encounter Visit Diagnoses Diagnosis Renal mass Unspecified disorder of kidney and ureter documented in this encounter Admitting Diagnoses Diagnosis Renal mass Unspecified disorder of kidney and ureter documented in this encounter Administered Medications Inactive Administered Medications - up to 3 most recent administrations Medication Order MAR Action Action Date Dose Rate Site acetaminophen (Tylenol) tablet 1,000 mg 1,000 mg, Oral, ONCE, 1 dose, On Wed06/23/21 at 0700, Administer with SIP of H2O only., Day of Surgery (Day of Procedure), Routine Given 06/23/2021 7:00 AM EST 1,000 mg acetaminophen (Tylenol) tablet 975 mg 975 mg, Oral, EVERY 6 HOURS SCHEDULED, First dose on Wed06/23/21 at 1300, Until Discontinued, Maximum dose of acetaminophen is 4000 mg from all sources in 24 hours. When ordered for pain, acetaminophen should be given even when other ordered pain medications are indicated., Routine Given 06/27/2021 11:28 AM EST 975 mg Given 06/27/2021 6:49 AM EST 975 mg Given 06/27/2021 12:40 AM EST 975 mg atorvastatin (Lipitor) tablet 20 mg 20 mg, Oral, EVERY EVENING, First dose on Wed06/23/21 at 1700, Until Discontinued, Routine Given 06/26/2021 5:28 PM EST 20 mg Given 06/25/2021 5:35 PM EST 20 mg Given 06/24/2021 5:06 PM EST 20 mg docusate sodium (Colace) capsule 100 mg 100 mg, Oral, 2 TIMES DAILY, First dose on Wed06/23/21 at 2100, Until Discontinued, Routine Given 06/27/2021 10:01 AM EST 100 mg Given 06/26/2021 8:49 PM EST 100 mg Given 06/26/2021 8:14 AM EST 100 mg fentaNYL (PF) (50 mcg/mL) injection 12.5-50 mcg 12.5-50 mcg, Intravenous, EVERY 1 MIN PRN, Starting on Wed06/23/21 at 0608, Until Wed06/23/21 at 0734, Pain, for epidural placement only, Start dose 25 mcg (Reduce dose to 12.5 mcg if history of sedation sensitivity). Titration dose: 12.5-50 mcg IV (based on patient response) Intravenous (IV), every 3 minutes to maintain procedural pain less than 2 per pain scale. 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., 1 dose, On Wed06/23/21 at 0700, Routine Given 06/23/2021 7:42 AM EST 5,000 Units heparin (porcine) (5,000 units/1 mL) subcutaneous injection 5,000 Units 5,000 Units, Subcutaneous, EVERY 8 HOURS SCHEDULED, First dose on Wed06/23/21 at 1400, Until Discontinued, Routine Given 06/27/2021 6:49 AM EST 5,000 Unit s Given 06/26/2021 1:06 PM EST 5,000 Units Given 06/26/2021 6:05 AM EST 5,000 Units HYDROmorphone (Dilaudid) (2 mg/mL) injection solution 0.2 mg 0.2 mg, Epidural, ONCE, 1 dose, On Wed06/23/21 at 0630, Routine Given 06/23/2021 7:41 AM EST 0.2 mg 10- Arm Upper (Right) HYDROmorphone (Dilaudid) 10 mcg/mL, BUpivacaine (Marcaine) 0.1% (0.1 mg/mL) (1/10%) in sodium chloride 0.9% 250 mL epidural Epidural, PCEA Dose: 3 mL, PCEA Frequency: Every 20 minutes, Maximum rate for continuous infusion 14 mL per hour Maximum total epidural rate (continuous and PCEA bolus) is 25 mL per hour, Recovery (Recovery-Hospital Unit) Rate/Dose Change 06/26/2021 1:37 PM EST 0.1 mL/hr 0.1 mL/hr New Bag 06/26/2021 10:16 AM EST 4 mL/hr 4 mL/hr New Bag 06/25/2021 11:21 AM EST 4 mL/hr 4 mL/hr HYDROmorphone (Dilaudid) tablet 2 mg 2 mg, Oral, EVERY 4 HOURS PRN, Starting on Wed06/23/21 at 1234, Until Wed06/27/21 at 1406, Pain, for mild pain (1-3), May give an additional 2 mg once if pain not relieved in 30-60 minutes., Routine HYDROmorphone (Dilaudid) tablet 4 mg 4 mg, Oral, EVERY 4 HOURS PRN, Starting on Wed06/23/21 at 1234, Until Wed06/27/21 at 1406, Pain, for moderate pain (4-6), May give an additional 2 mg once if pain not relieved in 30-60 minutes., Routine HYDROmorphone (Dilaudid) tablet 6 mg 6 mg, Oral, EVERY 4 HOURS PRN, Starting on Wed06/23/21 at 1234, Until Wed06/27/21 at 1406, Pain, for severe pain (7-10), May give an additional 2 mg once if pain not relieved in 30-60 minutes., Routine labetaloL (Normodyne) (5 mg/mL) injection solution 20 mg 20 mg, Intravenous, EVERY 2 HOURS PRN, Starting on Wed06/25/21 at 1922, Until Wed06/27/21 at 1406, High Blood Pressure, For SBP>170, Routine losartan (Cozaar) tablet 100 mg 100 mg, Oral, DAILY, First dose on Wed06/24/21 at 0900, Until Discontinued, Hold for SBP <100, Routine Given 06/27/2021 10:01 AM EST 100 mg Given 06/26/2021 8:14 AM EST 100 mg Given 06/25/2021 8:32 AM EST 100 mg midazolam (pf) (Versed) (1 mg/mL) injection 0.5-2 mg 0.5-2 mg, Intravenous, EVERY 1 MIN PRN, Starting on Wed06/23/21 at 0608, Until Wed06/23/21 at 0734, epidural placement only, Start dose 1 mg (Reduce dose to 0.5 mg if history of sedation sensitivity). Titration dose: 0.5 mg-2 mg IV (based on patient response) Intravenous (IV), every 3 minutes PRN to obtain RASS score of -2. Maximum dose 2 mg per dose, 10 mg/hour., Routine Given 06/23/2021 7:34 AM EST 1 mg Given 06/23/2021 7:24 AM EST 1 mg nalbuphine (Nubain) (10 mg/mL) injection 2 mg 2 mg, Intravenous, EVERY 4 HOURS PRN, Starting on Wed06/23/21 at 0608, Until Wed06/27/21 at 1406, Itching, If not effective, may repeat once after 30 minutes with each 4 hour dosing interval. For itching caused by hydromorphone or fentanyl use nalbuphine first. For itching caused by morphine use diphenhydramine first., Routine naloxone (Narcan) (0.4 mg/mL) injection 0.2 mg 0.2 mg, Intravenous, EVERY 1 MIN PRN, Starting on Wed06/23/21 at 0608, Until Wed06/27/21 at 1406, Opioid Reversal, If respiratory rate is less than or equal to 8 OR the patient is unarousable OR SpO2 is declining, Give for respiratory rate of less than or equal to 8 and patient is heavily sedated or unarousable. May repeat every 60 seconds to increase respiratory rate. DO NOT exceed 2 mg total dose. Per Epidural order., Recovery (Recovery-Hospital Unit), Routine Neuraxial (Epidural) rubi Epidural, CONTINUOUS PRN, Starting on Wed06/23/21 at 0608, Until Wed06/27/21 at 1406, Recovery (Recovery-Hospital Unit) Neuraxial shift total and Settings verification Epidural, 2 Times Daily- Neuraxial Shift Total, First dose on Wed06/23/21 at 1800, Until Discontinued, Recovery (Recovery-Hospital Unit) ondansetron (pf) (Zofran) (2 mg/mL) injection 4 mg 4 mg, Intravenous, EVERY 8 HOURS PRN, Starting on Wed06/23/21 at 1528, Until Wed06/27/21 at 1406, Nausea, May repeat times one in 30 minutes if ineffective. If multiple antiemetics are ordered, use ondansetron first, Recovery (Recovery-Hospital Unit) ondansetron (Zofran) tablet 4 mg 4 mg, Oral, EVERY 8 HOURS PRN, Starting on Wed06/23/21 at 1528, Until Wed06/27/21 at 1406, Nausea, Vomiting, If multiple antiemetics are ordered, use ondansetron first. PO Preferred. If patient unable to take PO, may give IV if ordered. May repeat times one in 45 minutes if ineffective., Recovery (Recovery-Hospital Unit), Routine sodium chloride 0.9 % (flush) (BD PosiFlush Normal Saline 0.9) flush 5 mL 5 mL, Intravenous, 2 TIMES DAILY, First dose on Wed06/23/21 at 2100, Until Discontinued, Recovery (Recovery-Hospital Unit), Routine Given 06/27/2021 10:01 AM EST 5 mLs Given 06/26/2021 8:50 PM EST 5 mLs Given 06/26/2021 9:00 AM EST 5 mLs sodium chloride 0.9% infusion 1,000 mL, at 100 mL/hr, Intravenous, CONTINUOUS, Starting on Wed06/23/21 at 1300, Until Yuliet 06/26/21 at 0801, Recovery (Recovery-Hospital Unit) New Bag 06/25/2021 11:23 PM EST 1,000 mLs 100 m L/hr New Bag 06/25/2021 1:47 PM EST 1,000 mLs 100 mL/hr New Bag 06/25/2021 4:07 AM EST 1,000 mLs 100 mL/hr documented in this encounter Active and Recently Administered Medications Times are shown in EST. Scheduled Medication Order 06/25/2021 06/26/2021 06/27/2021 acetaminophen (Tylenol) tablet 975 mg 975 mg, Oral, EVERY 6 HOURS SCHEDULED, First dose on Wed06/23/21 at 1300, Until Discontinued, Maximum dose of acetaminophen is 4000 mg from all sources in 24 hours. When ordered for pain, acetaminophen should be given even when other ordered pain medications are indicated., Routine 0558 (Given - Provider: Betty Morin RN)1111 (Given - Provider: Lorena Toledo RN)1735 (Given - Provider: Lorena Toledo RN) 0017 (Given - Provider: Corazon Priest RN)0604 (Given - Provider: Corazon Priest RN)1104 (Given - Provider: Lorena Toledo, DUANE)1728 (Given - Provider: Lorena Toledo RN) 0040 (Given - Provider: Corazon Priest RN)0649 (Given - Provider: Corazon Priest RN)1128 (Given - Provider: Dee Dee Jaime RN) atorvastatin (Lipitor) tablet 20 mg 20 mg, Oral, EVERY EVENING, First dose on Wed06/23/21 at 1700, Until Discontinued, Routine 1735 (Given - Provider: Lorena Toledo RN) 1728 (Given - Provider: Lorena Toledo RN) docusate sodium (Colace) capsule 100 mg 100 mg, Oral, 2 TIMES DAILY, First dose on Wed06/23/21 at 2100, Until Discontinued, Routine 0832 (Given - Provider: Yaima Levy RN)2134 (Given - Provider: Corazon Priest RN) 0814 (Given - Provider: Lorena Toledo RN)2049 (Given - Provider: Corazon Priest RN) 1001 (Given - Provider: Anahy Norris RN) heparin (porcine) (5,000 units/1 mL) subcutaneous injection 5,000 Units 5,000 Units, Subcutaneous, EVERY 8 HOURS SCHEDULED, First dose on Wed06/23/21 at 1400, Until Discontinued, Routine 0557 (Given - Provider: Betty Morin RN)1332 (Given - Provider: Lorena Toledo RN)2134 (Given - Provider: Corazon Priest, DUANE) 0605 (Given - Provider: Corazon Priest, DUANE)1306 (Given - Provider: Lorena Toledo RN)2200 (Hold - Provider: Becca Capone RN - Reason: Contraindicated - Comment: for epidural removal) 0649 (Given - Provider: Corazon Priest RN) losartan (Cozaar) tablet 100 mg 100 mg, Oral, DAILY, First dose on Wed06/24/21 at 0900, Until Discontinued, Hold for SBP <100, Routine 0832 (Given - Provider: Yaima Levy RN) 0814 (Given - Provider: Lorena Toledo RN) 1001 (Given - Provider: Anahy Norris, DUANE) Neuraxial shift total and Settings verification(Linked Group 1) Epidural, 2 Times Daily- Neuraxial Shift Total, First dose on Wed06/23/21 at 1800, Until Discontinued, Recovery (Recovery-Hospital Unit) 0600 (Verified - Provider: Betty Morin RN)1800 (Verified - Provider: Lorena Toledo RN) 0600 (Verified - Provider: Corazon Priest RN)1800 (Verified - Provider: Lorena Toledo RN) 0600 (Hold - Provider: Corazon Priest RN - Reason: Medication Discontinued) sodium chloride 0.9 % (flush) (BD PosiFlush Normal Saline 0.9) flush 5 mL 5 mL, Intravenous, 2 TIMES DAILY, First dose on Wed06/23/21 at 2100, Until Discontinued, Recovery (Recovery-Hospital Unit), Routine 0832 (Given - Provider: Yaima Levy RN)2134 (Given - Provider: Corazon Priest RN) 0900 (Given - Provider: Lorena Toledo RN)2050 (Given - Provider: Corazon Priest RN) 1001 (Given - Provider: Anahy Norris, DUANE) Continuous Medication Order 06/25/2021 06/26/2021 06/27/2021 HYDROmorphone (Dilaudid) 10 mcg/mL, BUpivacaine (Marcaine) 0.1% (0.1 mg/mL) (1/10%) in sodium chloride 0.9% 250 mL epidural(Linked Group 1) Epidural, PCEA Dose: 3 mL, PCEA Frequency: Every 20 minutes, Maximum rate for continuous infusion 14 mL per hour Maximum total epidural rate (continuous and PCEA bolus) is 25 mL per hour, Recovery (Recovery-Hospital Unit) 1049 (Rate/Dose Change - Provider: Rich E Bruno, RN - Comment: by APS)1121 (New Bag - Provider: Lorena Toledo RN) 1016 (New Bag - Provider: Lorena Toledo RN)1337 (Rate/Dose Change - Provider: Becca Capone RN - Comment: by APS) 1406 (Due: Stopped) sodium chloride 0.9% infusion (CANCELED) 1,000 mL, at 100 mL/hr, Intravenous, CONTINUOUS, Starting on Wed06/23/21 at 1300, Until Yuliet 06/26/21 at 0801, Recovery (Recovery-Hospital Unit) 0407 (New Bag - Provider: Betty Morin RN)1347 (New Bag - Provider: Lorena Toledo RN)2323 (New Bag - Provider: Corazon Priest RN) 0801 (Stopped - Provider: Lorena Toledo RN) PRN Medication Order 06/25/2021 06/26/2021 06/27/2021 HYDROmorphone (Dilaudid) tablet 2 mg(Linked Group 2) 2 mg, Oral, EVERY 4 HOURS PRN, Starting on Wed06/23/21 at 1234, Until Wed06/27/21 at 1406, Pain, for mild pain (1-3), May give an additional 2 mg once if pain not relieved in 30-60 minutes., Routine HYDROmorphone (Dilaudid) tablet 4 mg(Linked Group 2) 4 mg, Oral, EVERY 4 HOURS PRN, Starting on Wed06/23/21 at 1234, Until Wed06/27/21 at 1406, Pain, for moderate pain (4-6), May give an additional 2 mg once if pain not relieved in 30-60 minutes., Routine HYDROmorphone (Dilaudid) tablet 6 mg(Linked Group 2) 6 mg, Oral, EVERY 4 HOURS PRN, Starting on Wed06/23/21 at 1234, Until Wed06/27/21 at 1406, Pain, for severe pain (7-10), May give an additional 2 mg once if pain not relieved in 30-60 minutes., Routine labetaloL (Normodyne) (5 mg/mL) injection solution 20 mg 20 mg, Intravenous, EVERY 2 HOURS PRN, Starting on Wed06/25/21 at 1922, Until Wed06/27/21 at 1406, High Blood Pressure, For SBP>170, Routine lidocaine (Xylocaine) 1% (10 mg/mL) injection 3 mg 3 mg (0.3 mL), Subcutaneous, ONCE PRN, 1 dose, Starting on Wed06/23/21 at 1622, Until Wed06/27/21 at 1406, for discomfort with PIV insertion, Recovery (Recovery-Hospital Unit), Routine nalbuphine (Nubain) (10 mg/mL) injection 2 mg 2 mg, Intravenous, EVERY 4 HOURS PRN, Starting on Wed06/23/21 at 0608, Until Wed06/27/21 at 1406, Itching, If not effective, may repeat once after 30 minutes with each 4 hour dosing interval. For itching caused by hydromorphone or fentanyl use nalbuphine first. For itching caused by morphine use diphenhydramine first., Routine naloxone (Narcan) (0.4 mg/mL) injection 0.2 mg 0.2 mg, Intravenous, EVERY 1 MIN PRN, Starting on Wed06/23/21 at 0608, Until Wed06/27/21 at 1406, Opioid Reversal, If respiratory rate is less than or equal to 8 OR the patient is unarousable OR SpO2 is declining, Give for respiratory rate of less than or equal to 8 and patient is heavily sedated or unarousable. May repeat every 60 seconds to increase respiratory rate. DO NOT exceed 2 mg total dose. Per Epidural order., Recovery ([facility]), Routine Neuraxial (Epidural) rubi(Linked Group 1) Epidural, CONTINUOUS PRN, Starting on Wed06/23/21 at 0608, Until Wed06/27/21 at 1406, Recovery ([facility]) ondansetron (pf) (Zofran) (2 mg/mL) injection 4 mg(Linked Group 3) 4 mg, Intravenous, EVERY 8 HOURS PRN, Starting on Wed06/23/21 at 1528, Until Wed06/27/21 at 1406, Nausea, May repeat times one in 30 minutes if ineffective. If multiple antiemetics are ordered, use ondansetron first, Recovery ([facility]) ondansetron (Zofran) tablet 4 mg(Linked Group 3) 4 mg, Oral, EVERY 8 HOURS PRN, Starting on Wed06/23/21 at 1528, Until Wed06/27/21 at 1406, Nausea, Vomiting, If multiple antiemetics are ordered, use ondansetron first. PO Preferred. If patient unable to take PO, may give IV if ordered. May repeat times one in 45 minutes if ineffective., Recovery ([facility]), Routine polyethylene glycoL (Miralax) packet 17 g 17 g, Oral, DAILY PRN, Starting on Wed06/23/21 at 1622, Until Wed06/27/21 at 1406, Constipation, Administer if no bowel movement within 48 hours to achieve: (1) One bowel movement at least every 48 hours, AND (2) without straining. If multiple PRN bowel medications ordered, start with polyethylene glycol, then lactulose, then oral bisacodyl, then bisacodyl suppository, then magnesium citrate, then tap water enema. Multiple medications may be given concomitantly for constipation., Routine sodium chloride 0.9 % (flush) (BD PosiFlush Normal Saline 0.9) flush 5-20 mL 5-20 mL, Intravenous, EVERY 1 MIN PRN, Starting on Wed06/23/21 at 1622, Until Wed06/27/21 at 1406, flush, Flush pertains to all indwelling lines. Flush per protocol found in the job aid using the link provided on this medication record., Recovery ([facility]), Routine Linked Groups Order Group 1: HYDROmorphone (Dilaudid) 10 mcg/mL, BUpivacaine (Marcaine) 0.1% (0.1 mg/mL) (1/10%) in sodium chloride 0.9% 250 mL epiduralJump to med Epidural, PCEA Dose: 3 mL, PCEA Frequency: Every 20 minutes, Maximum rate for continuous infusion 14 mL per hour Maximum total epidural rate (continuous and PCEA bolus) is 25 mL per hour, Recovery ([facility]) And Neuraxial shift total and Settings verificationJump to med Epidural, 2 Times Daily- Neuraxial Shift Total, First dose on Wed06/23/21 at 1800, Until Discontinued, Recovery ([facility]) And Neuraxial (Epidural) keyJump to med Epidural, CONTINUOUS PRN, Starting on Wed06/23/21 at 0608, Until Wed06/27/21 at 1406, Recovery ([facility]) Group 2: HYDROmorphone (Dilaudid) tablet 2 mgJump to med 2 mg, Oral, EVERY 4 HOURS PRN, Starting on Wed06/23/21 at 1234, Until Wed06/27/21 at 1406, Pain, for mild pain (1-3), May give an additional 2 mg once if pain not relieved in 30-60 minutes., Routine Or HYDROmorphone (Dilaudid) tablet 4 mgJump to med 4 mg, Oral, EVERY 4 HOURS PRN, Starting on Wed06/23/21 at 1234, Until Wed06/27/21 at 1406, Pain, for moderate pain (4-6), May give an additional 2 mg once if pain not relieved in 30-60 minutes., Routine Or HYDROmorphone (Dilaudid) tablet 6 mgJump to med 6 mg, Oral, EVERY 4 HOURS PRN, Starting on Wed06/23/21 at 1234, Until Wed06/27/21 at 1406, Pain, for severe pain (7-10), May give an additional 2 mg once if pain not relieved in 30-60 minutes., Routine Group 3: ondansetron (Zofran) tablet 4 mgJump to med 4 mg, Oral, EVERY 8 HOURS PRN, Starting on Wed06/23/21 at 1528, Until Wed06/27/21 at 1406, Nausea, Vomiting, If multiple antiemetics are ordered, use ondansetron first. PO Preferred. If patient unable to take PO, may give IV if ordered. May repeat times one in 45 minutes if ineffective., Recovery ([facility]), Routine Or ondansetron (pf) (Zofran) (2 mg/mL) injection 4 mgJump to med 4 mg, Intravenous, EVERY 8 HOURS PRN, Starting on Wed06/23/21 at 1528, Until Wed06/27/21 at 1406, Nausea, May repeat times one in 30 minutes if ineffective. If multiple antiemetics are ordered, use ondansetron first, Recovery ([facility]) documented in this encounter Care Teams Nurse Advisor Relationship Specialty Start Date End Date Lisbet Solitario MD [address] [place] [address] PCP - General Family Medicine 01/30/16 08/19/21 documented as of this encounter
--- OUTSIDE RECORDS SUMMARY | 2024-02-03 16:59 | XMS_ITS | Encounter Summary ---
Author Organization [facility] Address [facility] [place] [address] Care Team Providers Care Hand Glove Cleaner Name Role Phone Lisbet Solitario MD Primary Care Provider [phone] Reason for Visit * Auth/Cert Specialty Diagnoses / Procedures Referred By Burak mcnair Referred To Contact Diagnoses Renal mass RENAL MASS Procedures PRO REMV KIDNEY, RADICAL PRO CYSTOURETHROSCOPY @NEPHRECTOMY, RADICAL W\REG LYMPHADENECTOMY &\OR VENA CAVA THROMBECTOMY (WRVU 23.81) CYSTO, CYSTOURETHROSCOPY, DIAGNOSTIC (WRVU 2.23) Referral ID Status Reason Start Date Expiration Date Visits Re quested Visits Authorized [id number] 1 1 Encounter Details Date Type Department Care Team (Late st Contact Info) Description 06/23/2021 7:30 AM EST - 06/23/2021 12:15 PM EST [place] [address] Miles Hou MD [facility] [place] [address] @NEPHRECTOMY, RADICAL W\REG LYMPHADENECTOMY &\OR VENA CAVA THROMBECTOMY (WRVU 23.81) Social History Tobacco Use Types Packs/Day Years [...] Sign Reading Time Taken Comments Blood Pressure 130/96 06/23/2021 11:59 AM EST Pulse 55 06/23/2021 12:15 PM EST Temperature 36 ??C (96.8 ??F) 06/23/2021 11:59 AM EST Respiratory Rate 14 06/23/2021 12:15 PM EST Oxygen Saturation 89% 06/23/2021 12:15 PM EST Inhaled Oxygen Concentration - - [...] Operations: 06/23/2021 Surgeon(s) and Role: * Miles oHu MD - Primary * Dawn Tello MD [...] Hospital Course: Raymundo Tenorio was admitted to [facility] on 06/23/2021 through the Same Day Surgery [...] Studies and Lab Data: Labs: Recent Labs 06/27/2113306/26/2113006/25/21 014 WBC 5.8 6.1 7.0 HGB 9.6* 8.6* 8.9* HCT 29.7* 26.5* 27.4* PLATELET 199 166 154 Recent Labs 06/27/2113306/26/2113006/25/21 014 NA 140 138 137 K 3.7 4.0 [...] that part of your care. Urology Clinic: [phone] PCP: Lisbet Solitario MD, . Please follow-up [...] whole grains, and beans. You can buy bfgr-asp-ttmsgsk fiber supplements such as Metamucil, Benefiber, Citracel, and others. ??? Use ilou-jjq-uatiqpv products. Try them in this order: 1. [...] on the status of your appointment on [facility]. Please call (clinic number for appointments) to [...] managed by the Urologic Surgery Team at [facility]. If you have any questions or concerns, please feel free to contact us. Provider Contact Information: Urology Clinic: [phone] [facility] (after business hours): CC: Lisbet Solitario MD [...] whole grains, and beans. You can buy opds-jhe-wubpqnu fiber supplements such as Metamucil, Benefiber, Citracel, and others. Use kqcs-krz-ozetamk products. Try them in this order: Stool [...] on the status of your appointment on [facility]. Please call (clinic number for appointments) to [...] acting as a scribe for Dr. Cline. [facility] Nurse: Becca Capone RN Resident:: Kieran [...] Alert and follows command. Labs Recent Labs 06/26/21 0131 06/25/21 0141 06/24/21 0112 NA 138 137 136 K 4.0 4.5 5.3* CL 108* 107 105 CO2 23 23 BUN 18 21* 22* CREATININE 1.11 1.32 1.31 GLUCOSE 102 92 129 Recent Labs 06/26/21 0131 06/25/21 0141 06/24/21 0112 CALCIUM 8.2* 8.4* 8.6 [...] status, will discuss discharge planning with care center manager. Code status: Full code Brando Boss MD [...] status, will discuss discharge planning with care center manager. Code status: Full code Brando Boss MD P3906 * Zachery Cline MD - 06/25/2021 11:31 [...] any questions/changes in his medical status. Pager: [phone] Lulu Khan OTR/L 06/25/2021 Occupational Therapy Rehabilitation [...] CYSTO, CYSTOURETHROSCOPY, DIAGNOSTIC (VU 2.23) performed by Miles Hou MD at [facility] MAIN OR ??? PRO REMV KIDNEY, RADICAL Left 06/23/2021 @NEPHRECTOMY, RADICAL W\REG LYMPHADENECTOMY &\OR VENA CAVA THROMBECTOMY (WRVU 23.81) performed by Miles Hou MD at [facility] MAIN OR There are no active non-hospital problems to display for this patient. 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 His niece is a PT at [employer], he reports she's already got exercises [...] outlinedin this evaluation. Time IN / OUT: 0997-5199 Total Minutes, Physical Therapy: 15 Dayanara Kern, PT Pager: [phone] Physical Therapy Inpatient Rehabilitation Department * Betty [...] wean once he can tolerate oral analgesics. BECCA Guillen RN, have performed the documentation for this [...] tolerated, AROBF : continue monitoring UOP, continue Cabeazs FEN: replace lytes prn Endo: ROXY Heme: continue ppx SQH ID: afebrile, Completed periop ancef Prophylaxis: SQH, SCDs, encourage ambulation MSK: PT/OT consult Dispo: stable on floor status, will discuss discharge planning with care center manager. Code status: Full code Brando Boss MD P3903 Associated attestation - Miles Hou MD - 06/24/2021 8:18 PM EST I have seen the patient and reviewed the resident's above history and I agree with the details as written. The assessment and plan were formulated in discussion with me and I agree with them as documented. * Bernardino Payan, RN - 06/24/2021 4:58 AM EST OUTCOME EVALUATION NOTE: OUTCOME SUMMARY: VSS, on RA. Epidural infusing, denies pain. Cabezas in place with nia colored urine. Incision intact. Hg dropped from 12.6 to 9.7 with AM labs- team aware. Barak refused- refusal form placed in chart. Needs [...] of call urban, bed.chair alarm, and 2 [place] falls prevention program. Will check MD orders [...] vein reconstruction. Consent confirmed. LEFT side marked. [facility] Ancef T&S Dawn Tello MD Associated attestation [...] anticipated Patient is insured through: Primary Insurance: [employer] MGD MEDICARE Payor: [place] MEDICARE / Plan: [facility] / Product Type: *No Product type* / Secondary Insurance: N/A Prescription Coverage: YES Preferred Pharmacy: [phone] [address] This plan was formulated with input from patient and team. All are in agreement with plan. Initial IMM given: ??06/23/21 5:50 AM OCM RS to provide DC IMM R. (Mina) DUANE Stallworth RN/CM - Cellphone: [phone] Pager: [phone] Covering Service RN/CM * Plan of Care [...] Admission order reviewed. [facility] Secondary Insurance on file: n/a Primary care provider on file: Lisbet Solitario MD [phone] Pharmacy: [id number] - [address] [address] Advance Care Planning: Attempt Cardiopulmonary Resuscitation - Inpatient <no information> -Advanced Directive: Other (Surrogacy: Talisha Tenorio (Spouse)) Current Functional Ability: Assistive Equipment and Assistive Person Functional Status Prior to Admission: Independent Home Environment: Others in the home: spouse. Current Living Arrangements: home/apartment/condo. Accessibility Concerns:none noted. Current DME: none [address] [facility] [address] [facility] [address] Social & Family Supports: Extended Emergency Contact Information Primary Emergency Contact: Talisha Tenorio Address: [address] [place] [phone] [place] Relation: Spouse Secondary Emergency Contact: [place] [address] [facility] [place] Relation: Child Current Care Provided by: [...] via car when medically ready. Registered Nurse Telephone Sales Representative / Relay Telegrapher will continue to follow patient???s progress and remain available if situation changes for coordination of care, psychosocial support and/or discharge planning. Office of Care Management Kayla Stallworth RN (Jonas) RN/CM - Cellphone: [phone] Pager: [phone] Covering Service RN/CM * Op Note - Dawn Tello MD - 06/23/2021 1:07 PM EST Operative Note Patient Name: Raymundo Tenorio : [id number] MR#: [id number] Case Date: 06/23/2021 Surgeon: Surgeon(s) and Role: [...] the bladder. The scope was withdrawn. 14 Kyrgyz Cabezas catheter was placed using 10 cc [...] with 0 Vicryl interrupted sutures in a mpsbxf-yv-ggequ manner. The skin was then closed with [...] Operative Note Patient Name: Raymundo Tenorio : [id number] MR#: [id number] Case Date: 06/23/2021 Surgeon: Surgeon(s) and Role: [...] [facility] Hematology Oncology [address] [place] [address] 02/16/2024 10:20 AM EDT Hospital [place] [phone] Mitali Griffiths APRN [facility] [place] [address] 02/16/2024 1:30 PM EDT Office Visit H[place]ology [place] [address] Albino Bartholomew MD [facility] DR HEMATOLOGY [place] [address] 04/17/2024 10:00 AM EST Office Visit Dermatology at [facility] [address] [place] [id number] Oil Winter MD [address] [facility]-[place] [address] documented as of this encounter Procedures Procedure [...] RBC STAT 06/23/2021 8:25 AM EST Cystourethroscopy (54673) Yes 2021 7:47 AM EST RENAL MASS Remv Kidney, Radical (06054) Yes 06/23/2021 7:47 AM EST RENAL MASS [...] 06/23/2021 7:05 AM EST TYPE AND SCREEN ([facility]/LOVE) Routine 06/23/2021 7:05 AM EST EKG 12-LEAD Routine 06/23/2021 7:04 AM EST EKG 12-LEAD Routine 06/23/2021 7:03 AM EST Renal mass documented in this encounter Results * Differential, Automated (06/27/2021 1:34 AM EST) Neutrophil % 67.9 % [facility] Neutrophil Absolute 3.91 1.70 - 6.10 x10(3)/[facility] Lymph % 19.8 % [facility] Lymphocytes Abs 1.1 0.9 - 3.2 x10(3)/[facility] Monocyte % 6.1 % [facility] Monocyte Abs 0.4 0.3 - 0.9 x10(3)/[facility] Eos % 4.5 % [facility] Eosinophils Abs 0.3 0.0 - 0.4 x10(3)/[facility] Basophil % 1.2 % [facility] Baso Absolute 0.1 0.0 - 0.1 x10(3)/[facility] Immature Gran % 0.50 % [facility] Comment: Immature granulocytes(IG's)percentage and absolute count will include metamyelocytes, myelocytes, and promyelocytes. Blood smears from CBCs yielding IG's will be scanned manually for concordance. If this scan disagrees with the automated IG or if promyelocytes are noted, a manual differential will be performed. Immature Gran Absolute 0.03 0.00 - 0.04 x10(3)/[facility] Blood 06/27/2021 1:34 AM EST 06/27/2021 1:54 AM EST Narrative Resulting Agency Comment Spec In Lab Brando Boss MD HEMATOLOGY ORDERA BLES [facility] [place] [address] * (ABNORMAL) Hemogram (06/27/2021 1:34 AM EST) White Blood Cell 5.8 4.0 - 9.5 x10(3)/mc L [facility] Red Blood Cell 3.49(L) 4.58 - 5.54 x10(6)/mc L [facility] Hemoglobin 9.6(L) 13.7 - 16.5 g/dL [facility] Hematocrit 29.7(L) 40.5 - 48.5 % [facility] Mean Cell Volume 85.1 82.9 - 93.1 fL [facility] Mean Cell Hemoglobin 27.5 27.5 - 32.1 pg [facility] Mean Cell Hemoglobin Concentration 32.3 32.0 - 35.7 g/dL [facility] Platelet 199 145 - 357 x10(3)/mc L [facility] RDW Standard Deviation 44.2 36.0 - 45.0 fL [facility] RDW coefficient of variation 14.5(H) 11.4 - 13.8 % [facility] Mean Platelet Volume 9.9 7.6 - 12.9 fL [facility] NRBC% auto 0.0 % [facility] NRBC Absolute 0.000 0.000 - 0.000 x10(3)/mc L [facility] Blood 06/27/2021 1:34 AM EST 06/27/2021 1:54 AM EST Narrative Resulting Agency Comment Spec In Lab Brando Boss MD HEMATOLOGY ORDERA BLES [facility] [place] [address] * Basic Metabolic Panel (non-fasting) (06/27/2021 1:34 AM EST) Glucose 134 65 - 199 mg/dL [facility] Comment:Diabetes: >=200 mg/d L plus symptoms Blood Urea Nitrogen 19 10 - 20 mg/dL [facility] Creatinine 1.22 0.80 - 1.50 mg/dL [facility] Sodium 140 135 - 145 mmol/L [facility] Potassium 3.7 3.5 - 5.0 mmol/L [facility] Comment: Please note: ??Patients with WBC >100,000 may have falsely elevated Potassium levels. ??For accurate Potassium quantification in these patients send serum separator tube (gold top) for subsequent determinations. ??Contact the Clinical Chemistry Laboratory if there are any questions. Chloride 106 98 - 107 mmol/L [facility] Carbon Dioxide 27 22 - 31 mmol/L [facility] Anion Gap 7 5 - 15 mmol/L [facility] Calcium 8.5 8.5 - 10.5 mg/dL [facility] Est Glomerular Filtration Rate 61 >=60 mL/min/1. 73 m?? [facility] Comment: This patient? s estimated [...] Lab Miles Hou MD CHEMISTRY ORDERABL ES [facility] [place] [address] * COVID-19 PCR (06/26/2021 5:46 AM EST) SARS-CoV-2 RNA Not Detected Not Detected [facility] Comment: This result should be [...] diagnosis of COVID-19 is performed using the allyve SARS-CoV-2 Assay as authorized by the FDA Emergency Use Authorization (EUA). This EUA assay is intended for In-vitro Diagnostic (IVD) use with respiratory specimens such as nasopharyngeal swabs collected from individuals during the acute phase of infection. This assay is performed based on the instructions for use provided by [employer]. and additional guidance provided by CDC and FDA. Testing is performed in the Clinical Genomics and Advanced Technology Laboratory within the Department of Pathology and Laboratory Medicine at [facility], certified under the Clinical Laboratory Improvement [...] fact sheets at the following FDA website: https://www.fda.gov/medical-devices/debmfyyjuyh-fnprqtu-8317-jpefu-72-bjlskyllu- use-a uskutkbvstiik-ibynmjd-ucjkptf/jtfgn-gqbtdqvidku-tnlo SARS-CoV-2 RNA Source [employer] [facility] Nasopharyngeal Swab 06/26/19 5:46 AM EST 06/26/2021 8:43 AM EST Comment:Symptoms->Surveillan ce Narrative Resulting Agency Comment Spec In Lab Miles Hou MD MOLECULAR ORDERABL ES Performing Organization Address City/State/[facility] Co de Phone Number [facility] [place] [address] * (ABNORMAL) Differential, Automated (06/26/2021 1:31 AM EST) Neutrophil % 71.3 % [facility] Neutrophil Absolute 4.35 1.70 - 6.10 x10(3)/mc L [facility] Lymph % 18.3 % [facility] Lymphocytes Abs 1.1 0.9 - 3.2 x10(3)/mc L [facility] Monocyte % 5.9 % [facility] Monocyte Abs 0.4 0.3 - 0.9 x10(3)/mc L [facility] Eos % 2.6 % [facility] Eosinophils Abs 0.2 0.0 - 0.4 x10(3)/mc L [facility] Basophil % 0.8 % [facility] Baso Absolute 0.0 0.0 - 0.1 x10(3)/mc L [facility] Immature Gran % 1.10 % [facility] Comment: Immature granulocytes(IG's)percentage and absolute count will include metamyelocytes, myelocytes, and promyelocytes. Blood smears from CBCs yielding IG's will be scanned manually for concordance. If this scan disagrees with the automated IG or if promyelocytes are noted, a manual differential will be performed. Immature Gran Absolute 0.07(H) 0.00 - 0.04 x10(3)/ L [facility] Blood 06/26/2021 1:31 AM EST 06/26/2021 1:42 AM EST Narrative Resulting Agency Comment Spec In Lab Brando Boss MD HEMATOLOGY ORDERA BLES [facility] [place] [address] * (ABNORMAL) Hemogram (06/26/2021 1:31 AM EST) White Blood Cell 6.1 4.0 - 9.5 x10(3)/ L [facility] Red Blood Cell 3.07(L) 4.58 - 5.54 x10(6)/mc L [facility] Hemoglobin 8.6(L) 13.7 - 16.5 g/dL [facility] Hematocrit 26.5(L) 40.5 - 48.5 % [facility] Mean Cell Volume 86.3 82.9 - 93.1 fL [facility] Mean Cell Hemoglobin 28.0 27.5 - 32.1 pg [facility] Mean Cell Hemoglobin Concentration 32.5 32.0 - 35.7 g/dL [facility] Platelet 166 145 - 357 x10(3)/ L [facility] RDW Standard Deviation 46.5(H) 36.0 - 45.0 fL [facility] RDW coefficient of variation 14.6(H) 11.4 - 13.8 % [facility] Mean Platelet Volume 9.8 7.6 - 12.9 fL [facility] NRBC% auto 0.0 % [facility] NRBC Absolute 0.000 0.000 - 0.000 x10(3)/mc L [facility] Blood 06/26/2021 1:31 AM EST 06/26/2021 1:42 AM EST Narrative Resulting Agency Comment Spec In Lab Brando Boss MD HEMATOLOGY ORDERA BLES [facility] [place] [address] * (ABNORMAL) Basic Metabolic Panel (non-fasting) (06/26/2021 1:31 AM EST) Glucose 102 65 - 199 mg/dL [facility] Comment:Diabetes: >=200 mg/d L plus symptoms Blood Urea Nitrogen 18 10 - 20 mg/dL [facility] Creatinine 1.11 0.80 - 1.50 mg/dL [facility] Sodium 138 135 - 145 mmol/L [facility] Potassium 4.0 3.5 - 5.0 mmol/L [facility] Comment: Please note: ??Patients with WBC >100,000 may have falsely elevated Potassium levels. ??For accurate Potassium quantification in these patients send serum separator tube (gold top) for subsequent determinations. ??Contact the Clinical Chemistry Laboratory if there are any questions. Chloride 108(H) 98 - 107 mmol/L [facility] Carbon Dioxide 23 22 - 31 mmol/L [facility] Anion Gap 7 5 - 15 mmol/L [facility] Calcium 8.2(L) 8.5 - 10.5 mg/dL [facility] Est Glomerular Filtration Rate 69 >=60 mL/min/1. 73 m?? [facility] Comment: This patient? s estimated [...] Lab Miles Hou MD CHEMISTRY ORDERABL ES [facility] [place] [id number] * Differential, Automated (06/25/2021 1:41 AM EST) Neutrophil % 76.0 % [facility] Neutrophil Absolute 5.35 1.70 - 6.10 x10(3)/[facility] Lymph % 16.2 % [facility] Lymphocytes Abs 1.1 0.9 - 3.2 x10(3)/[facility] Monocyte % 5.5 % [facility] Monocyte Abs 0.4 0.3 - 0.9 x10(3)/[facility] Eos % 1.3 % [facility] Eosinophils Abs 0.1 0.0 - 0.4 x10(3)/[facility] Basophil % 0.6 % [facility] Baso Absolute 0.0 0.0 - 0.1 x10(3)/[facility] Immature Gran % 0.40 % [facility] Comment: Immature granulocytes(IG's)percentage and absolute count will include metamyelocytes, myelocytes, and promyelocytes. Blood smears from CBCs yielding IG's will be scanned manually for concordance. If this scan disagrees with the automated IG or if promyelocytes are noted, a manual differential will be performed. Immature Gran Absolute 0.03 0.00 - 0.04 x10(3)/mcL [facility] Blood 06/25/2021 1:41 AM EST 06/25/2021 2:12 AM EST Narrative Resulting Agency Comment Spec In Lab Brando Boss MD HEMATOLOGY ORDERA BLES [facility] [place] [address] * (ABNORMAL) Hemogram (06/25/2021 1:41 AM EST) White Blood Cell 7.0 4.0 - 9.5 x10(3)/[facility] Red Blood Cell 3.22(L) 4.58 - 5.54 x10(6)/[facility] Hemoglobin 8.9(L) 13.7 - 16.5 g/dL [facility] Hematocrit 27.4(L) 40.5 - 48.5 % [facility] Mean Cell Volume 85.1 82.9 - 93.1 [facility] Mean Cell Hemoglobin 27.6 27.5 - 32.1 pg [facility] Mean Cell Hemoglobin Concentration 32.5 32.0 - 35.7 g/dL [facility] Platelet 154 145 - 357 x10(3)/[facility] RDW Standard Deviation 45.1(H) 36.0 - 45.0 [facility] RDW coefficient of variation 14.6(H) 11.4 - 13.8 % [facility] Mean Platelet Volume 10.2 7.6 - 12.9 [facility] NRBC% auto 0.0 % [facility] NRBC Absolute 0.000 0.000 - 0.000 x10(3)/ L [facility] Blood 06/25/2021 1:41 AM EST 06/25/2021 2:12 AM EST Narrative Resulting Agency Comment Spec In Lab Brando Boss MD HEMATOLOGY ORDERA BRIANNALeni [facility] [place] [address] * (ABNORMAL) Basic Metabolic Panel (non-fasting) (06/25/2021 1:41 AM EST) Glucose 92 65 - 199 mg/dL [facility] Comment:Diabetes: >=200 mg/d L plus symptoms Blood Urea Nitrogen 21(H) 10 - 20 mg/dL [facility] Creatinine 1.32 0.80 - 1.50 mg/dL [facility] Sodium 137 135 - 145 mmol/L [facility] Potassium 4.5 3.5 - 5.0 mmol/L [facility] Comment: Please note: ??Patients with WBC >100,000 may have falsely elevated Potassium levels. ??For accurate Potassium quantification in these patients send serum separator tube (gold top) for subsequent determinations. ??Contact the Clinical Chemistry Laboratory if there are any questions. Chloride 107 98 - 107 mmol/L [facility] Carbon Dioxide 23 22 - 31 mmol/L [facility] Anion Gap 7 5 - 15 mmol/L [facility] Calcium 8.4(L) 8.5 - 10.5 mg/dL [facility] Est Glomerular Filtration Rate 56(L) >=60 mL/min/1. 73 m?? [facility] Comment: This patient? s estimated [...] Lab Miles Hou MD CHEMISTRY ORDERABL ES [facility] [place] [address] * (ABNORMAL) Differential, Automated (06/24/2021 1:12 AM EST) Neutrophil % 86.5 % [facility] Neutrophil Absolute 9.85(H) 1.70 - 6.10 x10(3)/mc L [facility] Lymph % 7.1 % [facility] Lymphocytes Abs 0.8(L) 0.9 - 3.2 x10(3)/mc L [facility] Monocyte % 5.7 % [facility] Monocyte Abs 0.6 0.3 - 0.9 x10(3)/mc L [facility] Eos % 0.0 % [facility] Eosinophils Abs 0.0 0.0 - 0.4 x10(3)/mc L [facility] Basophil % 0.3 % [facility] Baso Absolute 0.0 0.0 - 0.1 x10(3)/mc L [facility] Immature Gran % 0.40 % [facility] Comment: Immature granulocytes(IG's)percentage and absolute count will include metamyelocytes, myelocytes, and promyelocytes. Blood smears from CBCs yielding IG's will be scanned manually for concordance. If this scan disagrees with the automated IG or if promyelocytes are noted, a manual differential will be performed. Immature Gran Absolute 0.04 0.00 - 0.04 x10(3)/mc L [facility] Blood 06/24/2021 1:12 AM EST 06/24/2021 1:28 AM EST Narrative Resulting Agency Comment Spec In Lab Brando Boss MD HEMATOLOGY ORDERA BLES [facility] [place] [place] [address] * (ABNORMAL) Hemogram (06/24/2021 1:12 AM EST) White Blood Cell 11.4(H) 4.0 - 9.5 x10(3)/mc L [facility] Red Blood Cell 3.51(L) 4.58 - 5.54 x10(6)/mc L [facility] [facility] Hemoglobin 9.7(L) 13.7 - 16.5 g/dL [facility] Comment: This result has been called to BERNARDINO PAYAN by Noreen tSreeter on 06 24 2021 at 0219, and has been read back. Hematocrit 30.4(L) 40.5 - 48.5 % [facility] Mean Cell Volume 86.6 82.9 - 93.1 fL [facility] Mean Cell Hemoglobin 27.6 27.5 - 32.1 pg [facility] Mean Cell Hemoglobin Concentration 31.9(L) 32.0 - 35.7 g/dL [facility] Platelet 186 145 - 357 x10(3)/mc L [facility] RDW Standard Deviation 46.0(H) 36.0 - 45.0 fL [facility] RDW coefficient of variation 14.6(H) 11.4 - 13.8 % [facility] Mean Platelet Volume 9.9 7.6 - 12.9 fL [facility] NRBC% auto 0.0 % [facility] NRBC Absolute 0.000 0.000 - 0.000 x10(3)/mc L [facility] Blood 06/24/2021 1:12 AM EST 06/24/2021 1:28 AM EST Narrative Resulting Agency Comment Spec In Lab Brando Boss MD HEMATOLOGY ORDERA BLES [facility] [place] [address] * (ABNORMAL) Basic Metabolic Panel (non-fasting) (06/24/2021 1:12 AM EST) Glucose 129 65 - 199 mg/dL [facility] Comment:Diabetes: >=200 mg/d L plus symptoms Blood Urea Nitrogen 22(H) 10 - 20 mg/dL [facility] Creatinine 1.31 0.80 - 1.50 mg/dL [facility] Sodium 136 135 - 145 mmol/L [facility] Potassium 5.3(H) 3.5 - 5.0 mmol/L [facility] Comment: Please note: ??Patients with WBC >100,000 may have falsely elevated Potassium levels. ??For accurate Potassium quantification in these patients send serum separator tube (gold top) for subsequent determinations. ??Contact the Clinical Chemistry Laboratory if there are any questions. Chloride 105 98 - 107 mmol/L [facility] Carbon Dioxide 23 22 - 31 mmol/L [facility] Anion Gap 8 5 - 15 mmol/L [facility] Calcium 8.6 8.5 - 10.5 mg/dL [facility] Est Glomerular Filtration Rate 56(L) >=60 mL/min/1. 73 m?? [facility] Comment: This patient? s estimated [...] Lab Miles Hou MD CHEMISTRY ORDERABL ES [facility] [place] [address] * (ABNORMAL) Differential, Automated (06/23/2021 12:45 PM EST) Neutrophil % 91.4 % [facility] Neutrophil Absolute 7.70(H) 1.70 - 6.10 x10(3)/mc L [facility] Lymph % 5.6 % [facility] Lymphocytes Abs 0.5(L) 0.9 - 3.2 x10(3)/ L [facility] Monocyte % 2.1 % [facility] Monocyte Abs 0.2(L) 0.3 - 0.9 x10(3)/ L [facility] Eos % 0.2 % [facility] Eosinophils Abs 0.0 0.0 - 0.4 x10(3)/[facility] Basophil % 0.5 % [facility] Baso Absolute 0.0 0.0 - 0.1 x10(3)/ L [facility] Immature Gran % 0.20 % [facility] Comment: Immature granulocytes(IG's)percentage and absolute count will include metamyelocytes, myelocytes, and promyelocytes. Blood smears from CBCs yielding IG's will be scanned manually for concordance. If this scan disagrees with the automated IG or if promyelocytes are noted, a manual differential will be performed. Immature Gran Absolute 0.02 0.00 - 0.04 x10(3)/mc L [facility] Blood 06/23/2021 12:4 5 PM EST 06/23/2021 1:11 PM EST Narrative Resulting Agency Comment Spec In Lab Dawn Tello MD HEMATOLOGY ORDERABLE S [facility] [place] [address] * (ABNORMAL) Hemogram (06/23/2021 12:45 PM EST) White Blood Cell 8.4 4.0 - 9.5 x10(3)/mc L [facility] Red Blood Cell 4.55(L) 4.58 - 5.54 x10(6)/mc L [facility] Hemoglobin 12.6(L) 13.7 - 16.5 g/dL [facility] Hematocrit 38.6(L) 40.5 - 48.5 % [facility] Mean Cell Volume 84.8 82.9 - 93.1 fL [facility] Mean Cell Hemoglobin 27.7 27.5 - 32.1 pg [facility] Mean Cell Hemoglobin Concentration 32.6 32.0 - 35.7 g/dL [facility] Platelet 157 145 - 357 x10(3)/mc L [facility] RDW Standard Deviation 45.2(H) 36.0 - 45.0 fL [facility] RDW coefficient of variation 14.7(H) 11.4 - 13.8 % [facility] Mean Platelet Volume 9.6 7.6 - 12.9 fL [facility] NRBC% auto 0.0 % [facility] NRBC Absolute 0.000 0.000 - 0.000 x10(3)/mc L [facility] Blood 06/23/2021 12:4 5 PM EST 06/23/2021 1:11 PM EST Narrative Resulting Agency Comment Spec In Lab Dawn Tello MD HEMATOLOGY ORDERABLE S [facility] [place] [address] * (ABNORMAL) Basic Metabolic Panel (non-fasting) (06/23/2021 12:45 PM EST) Glucose 169 65 - 199 mg/dL [facility] Comment:Diabetes: >=200 mg/d L plus symptoms Blood Urea Nitrogen 20 10 - 20 mg/dL [facility] Creatinine 1.21 0.80 - 1.50 mg/dL [facility] Sodium 134(L) 135 - 145 mmol/L [facility] Potassium 4.3 3.5 - 5.0 mmol/L [facility] Comment: Please note: ??Patients with WBC >100,000 may have falsely elevated Potassium levels. ??For accurate Potassium quantification in these patients send serum separator tube (gold top) for subsequent determinations. ??Contact the Clinical Chemistry Laboratory if there are any questions. Chloride 105 98 - 107 mmol/L [facility] Carbon Dioxide 20(L) 22 - 31 mmol/L [facility] Anion Gap 9 5 - 15 mmol/L [facility] Calcium 9.1 8.5 - 10.5 mg/dL [facility] Est Glomerular Filtration Rate 62 >=60 mL/min/1. 73 m?? [facility] Comment: This patient? s estimated [...] Lab Miles Hou MD CHEMISTRY ORDERABL ES [facility] [address] * Surgical Pathology Report (06/23/2021 11:37 AM EST) Final Diagnosis [id number] ? Location: 2WST; 0210; A The signing pathologist has (i) [...] and other diagnostic tests. Electronically signed by: ?Renae Acuna MD Verified: ??07/02/2021 11:14 ??Pathologist Performed at: ??-[facility] Dept. of Pathology, [place], [place] ?Surgical Pathology DIAGNOSIS A - Left Kidney, biopsy (1) Clear cell renal cell carcinoma, pT3a N1, see synoptic report. Electronically signed by: ?Rneea Acuna MD Verified: ??07/02/2021 10:38 ??Pathologist Performed at: ??-[facility] Dept. of Pathology, [place], [place] SYNOPTIC Specimen Parts: ??A Specimen ? [...] 2020 Release ADDITIONAL STUDIES Whole slide scan: [id number] [id number] [id number] [id number] A6-1 [id number] A8-1 [id number] SPECIMEN(S) SUBMITTED A - Left Kidney, biopsy (1) CLINICAL INFORMATION Renal mass SPECIMEN PROCESSING A - Labeled/Fixative: Left kidney, fresh. Quantity/Size/Weight : Single, 21 x 18 x 10 cm, 2453 g. SPECIMEN DESCRIPTION Resection Specimen: Intact, left, nephrectomy. LESION Size: 17 x 16 x 9.5 cm. Location: Obliterates the mid and lower pole Color: [place]-yellow to red-brown and hemorrhagic. Consistency: soft. Contour: [...] The perinephric soft tissues inked black. Sections/Processing: Supervisor Cold Rolling sections in 20 cassettes as follows: ?A1: ??Ureter margin ?A2: ??Vascular margins ?A3: ??Longitudinal section of tumor within renal vein ?A4-A5: ??Tumor within renal pelvis ?A6-A7: ??Tumor in relation to hilar fat margin ?A8-A10: ??Tumor in relation to perinephric fat margin ?A11-A12: ??Tumor in relation to Gerota's fascia ?A13: ??Tumor within renal sinus fat ?A14: ??Tumor with ??adjacent parenchyma ?A15-A16: ??Supervisor Cold Rolling areas of tumor heterogeneity ?A17: ??Uninvolved upper pole ?A18-A19: ??Single bisected perihilar lymph node in each cassette ?A20: ??Single intact candidate perihilar lymph node ??ajw 07/02/2021 11:14 AM EST [facility] SPECIMEN FROM KIDNEY / Unknown 06/23/2021 11:37 AM EST 06/23/2021 11:37 AM EST Miles Hou MD PATHOLOGY/CYTOLOGY ORDERABLES Performing Organization Address [facility] Co de Phone Number [facility] [place] [address] * Specimen to Pathology (06/23/2021 11:37 AM EST) AP Specimen 06/23/2021 11:3 7 AM EST 06/23/2021 11:37 AM EST Narrative [facility] - 06/23/2021 11:37 AM EST Specimen requisition ordered. ??Separate Pathology report to follow Miles Hou MD PATHOLOGY/CYTOLOGY ORDERABLES Performing Organization Address [facility] Co de Phone Number [facility] [place] [address] * (ABNORMAL) BLOOD GAS 2 ARTERIAL (06/23/2021 8:42 AM EST) pH, Arterial 7.42 7.35 - 7.45 [facility] PCO2, Arterial 36 35 - 45 mmHg [facility] PO2, Arterial 245(H) 85 - 104 mmHg [facility] Bicarbonate, Arterial 23.1 20.0 - 26.0 mmol/L [facility] Base Excess, Arterial -1.3 -3.0 - 3.0 mmol/L [facility] Hgb Blood Gas 11.1(L) 13.7 - 16.5 g/dL [facility] Oxyhemoglobin, Arterial 99.0(H) 94.0 - 97.0 % [facility] Carboxyhemoglob in, Arterial 0.1 % [facility] Comment: Nonsmokers: 0.5-1.5% COHB Smokers: Variable, but usually less than 10% Toxic: 20-30% COHB Lethal: Greater than 60% COHB Methemoglobin, Arterial 0.3 <=1.5 % [facility] Na Whole Blood 136 135 - 145 mmol/L [facility] K Whole Blood 4.0 3.5 - 5.0 mmol/L [facility] Comment: Please note: Patients with WBC >100,000 may have falsely elevated Potassium levels. Contact the Clinical Chemistry Laboratory if there are any questions. ICa Whole Blood 1.29 1.15 - 1.33 mmol/L [facility] Comment: Note: ??Total bilirubin higher than 20 mg/dL may lead to falsely low ionized calcium. CL Whole Blood 106 98 - 107 mmol/L [facility] Gluc Whole Bld 103 65 - 199 mg/dL [facility] Comment:Diabetes: >=200 mg/d L plus symptoms. Lactate WB 1.1 0.5 - 2.2 mmol/L [facility] FIO2 Art 60 % [facility] PF Ratio Art 408 [facility] Blood 06/23/2021 8:42 AM EST 06/23/2021 8:42 AM EST Miles Hou MD POINT OF CARE TEST ORDERABLES [facility] [place] [address] * (ABNORMAL) Hemogram (06/23/2021 8:30 AM EST) White Blood Cell 5.8 4.0 - 9.5 x10(3)/mc L [facility] Red Blood Cell 3.90(L) 4.58 - 5.54 x10(6)/mc L [facility] Hemoglobin 10.7(L) 13.7 - 16.5 g/dL [facility] Hematocrit 33.3(L) 40.5 - 48.5 % [facility] Comment: This result has been called to EMERALD WATTS by PIOTR HEBERT on 06 23 2021 at 0900, and has been read back. Mean Cell Volume 85.4 82.9 - 93.1 fL [facility] Mean Cell Hemoglobin 27.4(L) 27.5 - 32.1 pg [facility] Mean Cell Hemoglobin Concentration 32.1 32.0 - 35.7 g/dL [facility] Platelet 190 145 - 357 x10(3)/mc L [facility] RDW Standard Deviation 45.9(H) 36.0 - 45.0 fL [facility] RDW coefficient of variation 14.7(H) 11.4 - 13.8 % [facility] Mean Platelet Volume 9.9 7.6 - 12.9 fL [facility] NRBC% auto 0.0 % [facility] NRBC Absolute 0.000 0.000 - 0.000 x10(3)/mc L [facility] Blood 06/23/2021 8:30 AM EST 06/23/2021 8:53 AM EST Narrative Resulting Agency Comment Spec In Lab Erica Alves MD HEMATOLOGY ORDERABLE S Performing Organization Address City/[facility]/ZIP Co de Phone Number [facility] [place] [address] * Prepare RBC (06/23/2021 8:25 AM EST) Dispensed? Yes [facility] Blood 06/23/2021 8:25 AM EST 06/23/2021 8:25 AM EST Miles Hou MD BLOOD BANK PRODUCT ORDERABLES Performing Organization Address City/[facility]/ZIP Co de Phone Number [facility] [place] [address] * XR Fluoro No Rad <1Hr - OR Use (06/23/2021 7:42 AM EST) Narrative Dicom, Auditing User - 06/23/2021 7:57 AM EST This exam is auto-finalizing. No interpretation was done. Miles Hou MD IMG FLUORO ORDERAB LES * Type and Screen Validity (06/23/2021 7:15 AM EST) Pathologist [facility] T&S only valid at [facility] Comment:This Type and Screen result is only valid at the [facility] Blood 06/23/2021 7:15 AM EST 06/23/2021 7:32 AM EST Narrative Resulting Agency Comment Spec In Lab Miles Hou MD BLOOD BANK LAB ORD ERABLES Performing Organization Address [facility]/ZIP Co de Phone Number [facility] [place] [address] * Antibody screen (06/23/2021 7:15 AM EST) [facility] Ab Screen Interp Negative [facility] Expires at [id number] on: 06/26/2021 [facility] Blood 06/23/2021 7:15 AM EST 06/23/2021 7:32 AM EST Narrative Resulting Agency Comment Spec In Lab Miles Hou MD BLOOD BANK LAB ORD ERABLES [facility] [place] [address] * ABO/Rh Typing (06/23/2021 7:15 AM EST) ABORH Type A Pos [facility] Blood 06/23/2021 7:15 AM EST 06/23/2021 7:32 AM EST Narrative Resulting Agency Comment Spec In Lab Miles Hou MD BLOOD BANK LAB ORD ERABLES Performing Organization Address City/[facility]/ZIP Co de Phone Number [facility] [place] [address] * Red Tube Hold (06/23/2021 7:10 AM EST) Pathologist [facility] Red Hold Sample in lab. [facility] Blood No Charge / Unknown 06/23/2021 7:10 AM EST 06/23/2021 8:06 AM EST Miles Hou MD CHEMISTRY ORDERABL ES Performing Organization Address City/[facility]/ZIP Co de Phone Number [facility] [place] [phone] * Differential, Automated (06/23/2021 7:10 AM EST) Neutrophil % 70.9 % [facility] Neutrophil Absolute 5.93 1.70 - 6.10 x10(3)/[facility] Lymph % 17.1 % [facility] Lymphocytes Abs 1.4 0.9 - 3.2 x10(3)/[facility] Monocyte % 7.8 % [facility] Monocyte Abs 0.6 0.3 - 0.9 x10(3)/[facility] Eos % 2.8 % [facility] Eosinophils Abs 0.2 0.0 - 0.4 x10(3)/[facility] Basophil % 1.2 % [facility] Baso Absolute 0.1 0.0 - 0.1 x10(3)/[facility] Immature Gran % 0.20 % [facility] Comment: Immature granulocytes(IG's)percentage and absolute count will include metamyelocytes, myelocytes, and promyelocytes. Blood smears from CBCs yielding IG's will be scanned manually for concordance. If this scan disagrees with the automated IG or if promyelocytes are noted, a manual differential will be performed. Immature Gran Absolute 0.02 0.00 - 0.04 x10(3)/[facility] Blood 06/23/2021 7:10 AM EST 06/23/2021 8:04 AM EST Narrative Resulting Agency Comment Spec In Lab Miles Hou MD HEMATOLOGY ORDERAB LES Performing Organization Address City/State/[facility] Co de Phone Number [facility] [place] [address] * (ABNORMAL) Hemogram (06/23/2021 7:10 AM EST) White Blood Cell 8.4 4.0 - 9.5 x10(3)/mc L [facility] Red Blood Cell 2.42(L) 4.58 - 5.54 x10(6)/mc L [facility] Hemoglobin 6.7(L) 13.7 - 16.5 g/dL [facility] Hematocrit 20.9(L) 40.5 - 48.5 % [facility] Comment: This result has been called to EMERALD WATTS by Milton Godinez on 06 23 2021 at 0821, and has been read back. Mean Cell Volume 86.4 82.9 - 93.1 fL [facility] Mean Cell Hemoglobin 27.7 27.5 - 32.1 pg [facility] Mean Cell Hemoglobin Concentration 32.1 32.0 - 35.7 g/dL [facility] Platelet 279 145 - 357 x10(3)/mc L [facility] RDW Standard Deviation 47.1(H) 36.0 - 45.0 fL [facility] RDW coefficient of variation 14.8(H) 11.4 - 13.8 % [facility] Mean Platelet Volume 10.1 7.6 - 12.9 fL [facility] NRBC% auto 0.0 % [facility] NRBC Absolute 0.000 0.000 - 0.000 x10(3)/mc L [facility] Blood 06/23/2021 7:10 AM EST 06/23/2021 8:04 AM EST Narrative Resulting Agency Comment Spec In Lab Miles Hou MD HEMATOLOGY ORDERAB LES [facility] [place] [address] * (ABNORMAL) Comprehensive metabolic panel (non-fasting) (06/23/2021 7:10 AM EST) Glucose 93 65 - 199 mg/dL [facility] Comment:Diabetes: >=200 mg/d L plus symptoms Blood Urea Nitrogen 20 10 - 20 mg/dL [facility] Creatinine 1.28 0.80 - 1.50 mg/dL [facility] Sodium 137 135 - 145 mmol/L [facility] Potassium 4.2 3.5 - 5.0 mmol/L [facility] Comment: Please note: ??Patients with WBC >100,000 may have falsely elevated Potassium levels. ??For accurate Potassium quantification in these patients send serum separator tube (gold top) for subsequent determinations. ??Contact the Clinical Chemistry Laboratory if there are any questions. Chloride 106 98 - 107 mmol/L [facility] Carbon Dioxide 21(L) 22 - 31 mmol/L [facility] Anion Gap 10 5 - 15 mmol/L [facility] Calcium 10.0 8.5 - 10.5 mg/dL [facility] Protein, Total 7.3 6.1 - 8.0 g/dL [facility] Albumin 3.7 3.2 - 5.2 g/dL [facility] Aspartate Aminotransferase 20 0 - 39 unit/L [facility] Alanine Aminotransferase 30 0 - 55 unit/L [facility] Alkaline Phosphatase 129 40 - 130 unit/L [facility] Bilirubin, Total 0.6 0.2 - 1.3 mg/dL [facility] Est Glomerular Filtration Rate 58(L) >=60 mL/min/1. 73 m?? [facility] Comment: This patient? s estimated [...] Lab Miles Hou MD CHEMISTRY ORDERABL ES Performing Organization Address City/State/[facility] Co de Phone Number [facility] [place] [address] * ABORH Recheck Status (06/23/2021 7:05 AM EST) AB[facility] Recheck Order Order Placed [facility] ABORH Type Recheck Complete [facility] Blood 06/23/2021 7:05 AM EST 06/23/2021 7:09 AM EST Narrative Resulting Agency Comment Spec In Lab Dwan Tello MD BLOOD BANK LAB ORDER RADHA Performing Organization Address City/[facility]/ZIP Co de Phone Number [facility] [place] [address] * Antibody screen (06/23/2021 7:05 AM EST) Ab Screen Interp Not Performed [facility] Expires at [id number] on: 06/26/2021 [facility] Blood 06/23/2021 7:05 AM EST 06/23/2021 7:09 AM EST Narrative Resulting Agency Comment Spec In Lab Dawn Tello MD BLOOD BANK LAB ORDER RADHA Performing Organization Address [facility] Co de Phone Number [facility] [place] [address] * EKG 12 Lead (06/23/2021 7:04 AM EST) Ventricular rate 76 BPM MUSE SYSTEM Atrial Rate 76 BPM MUSE SYSTEM P-R Interval 228 ms MUSE SYSTEM QRS Duration 90 ms MUSE SYSTEM Q-T Interval 384 ms MUSE SYSTEM QTC Calculated (Bezet) 432 ms MUSE SYSTEM Calculated P [place] 31 degrees MUSE SYSTEM Calculated R [place] 33 degrees MUSE SYSTEM Calculated T [place] 32 degrees MUSE SYSTEM INTERPRETATION Sinus rhythm with 1st degree A-V block Left atrial enlargement Septal infarct (cited on or before 23-JUN-2021) Abnormal ECG When compared with ECG of 23-JUN-2021 07:03, (unconfirmed) No significant change was found Confirmed by fellow MD Reyna, Luisito ([id number]) on 06/23/2021 2:47:30 PM Confirmed by MD Jt, Mario ([id number]) on 06/23/2021 4:10:38 PM MUSE SYSTEM 06/23/2021 7:04 AM EST 06/23/2021 4:10 PM EST Unknown ECG ORDERABLES Performing Organization Address City/[facility]/ZIP Co de Phone Number MUSE SYSTEM * EKG 12 Lead (06/23/2021 7:03 AM EST) Ventricular rate 77 BPM MUSE SYSTEM Atrial Rate 77 BPM MUSE SYSTEM P-R Interval 228 ms MUSE SYSTEM QRS Duration 92 ms MUSE SYSTEM Q-T Interval 384 ms MUSE SYSTEM QTC Calculated (Bezet) 434 ms MUSE SYSTEM Calculated P [place] 24 degrees MUSE SYSTEM Calculated R [place] 33 degrees MUSE SYSTEM Calculated T [place] 30 degrees MUSE SYSTEM INTERPRETATION Sinus rhythm with 1st degree A-V block Septal infarct , age undetermined Abnormal ECG No previous ECGs available Confirmed by fellow MD Reyna, Luisito ([id number]) on 06/23/2021 1:55:29 PM Confirmed by MD Waters Jon ([id number]) on 06/23/2021 2:05:10 PM MUSE SYSTEM 06/23/2021 7:03 AM EST 06/23/2021 2:05 PM EST Miles Hou MD ECG ORDERABLES MUSE SYSTEM documented in this encounter Visit Diagnoses Not on filedocumented in this encounter Admitting Diagnoses Diagnosis Renal mass Unspecified disorder of kidney and ureter documented in this encounter Administered Medications Inactive Administered Medications - up to 3 most recent administrations Medication Order MAR Action Action Date Dose Rate Site acetaminophen (Tylenol) tablet 975 mg 975 mg, [...] Given 06/26/2021 8:14 AM EST 100 mg heparin (porcine) (5,000 units/1 mL) subcutaneous injection 5,000 Units 5,000 Units, Subcutaneous, EVERY 8 HOURS SCHEDULED, First dose on Wed06/23/21 at 1400, Until Discontinued, Routine Given 06/27/2021 6:49 AM EST 5,000 Unit s Given 06/26/2021 1:06 PM EST 5,000 Units Given 06/26/2021 6:05 AM EST 5,000 Units HYDROmorphone (Dilaudid) 10 mcg/mL, BUpivacaine (Marcaine) 0.1% [...] Given 06/25/2021 8:32 AM EST 100 mg nalbuphine (Nubain) (10 mg/mL) injection 2 [...] Given 06/26/2021 9:00 AM EST 5 mLs documented in this encounter Active and Recently [...] Betty Morin RN)1111 (Given - Provider: Lorena Toledo, DUANE)1735 (Given - Provider: Lorena Toledo RN) 0017 (Given - Provider: Corazon Priest, DUANE)0604 (Given - Provider: Corazon Priest, DUANE)1104 (Given - Provider: Lorena Toledo, DUANE)1728 (Given - Provider: Lorena Toledo RN) 0040 (Given - Provider: Corazon Priest RN)0649 (Given - Provider: Corazon Priest, DUANE)1128 (Given - Provider: Dee Dee Jaime RN) [...] Lorena Toledo RN)2134 (Given - Provider: Corazon Priest RN) 0605 (Given - Provider: Corazon Priest RN)1306 (Given - Provider: Lorena Toledo RN)2200 (Hold [...] Toledo RN) 1001 (Given - Provider: Anahy Norris RN) Neuraxial shift total and Settings verification(Linked Group 1) Epidural, 2 Times Daily- Neuraxial Shift Total, First dose on Wed06/23/21 at 1800, Until Discontinued, Recovery (Recovery-Hospital Unit) 0600 (Verified - Provider: Betty Morin RN)1800 (Verified - Provider: Lorena Toledo RN) 0600 (Verified - Provider: Corazon Priest, DUANE)1800 (Verified - Provider: Lorena Toledo, DUANE) 0600 (Hold - Provider: Corazon Priest RN - Reason: Medication Discontinued) sodium chloride 0.9 % (flush) (BD PosiFlush Normal Saline 0.9) flush 5 mL 5 mL, Intravenous, 2 TIMES DAILY, First dose on Wed06/23/21 at 2100, Until Discontinued, Recovery (Recovery-Hospital Unit), Routine 0832 (Given - Provider: Yaima Levy RN)2134 (Given - Provider: Corazon Priest, DUANE) 0900 (Given - Provider: Lorena Toledo, DUANE)2049 (Given - Provider: Corazon Priest RN) 1001 (Given - Provider: Anahy Norris RN) Continuous Medication Order 06/25/2021 06/26/2021 06/27/2021 HYDROmorphone [...] Unit) 1049 (Rate/Dose Change - Provider: Rich Carr RN - Comment: by APS)1121 (New Bag - Provider: Lorena Toledo, DUANE) 1016 (New Bag - Provider: Lorena Toledo RN)1337 (Rate/Dose Change - Provider: Becca Capone RN - Comment: by APS) 1406 (Due: Stopped) sodium chloride 0.9% infusion (CANCELED) 1,000 mL, at 100 mL/hr, Intravenous, CONTINUOUS, Starting on Wed06/23/21 at 1300, Until Yuliet 06/26/21 at 0801, Recovery (Recovery-Hospital Unit) 0407 (New Bag - Provider: Betty Morin, RN)1347 (New Bag - Provider: Lorena Toledo, RN)2323 (New Bag - Provider: Corazon Priest RN) 0801 (Stopped - Provider: Lorena Toledo, DUAEN) PRN Medication Order 06/25/2021 06/26/2021 06/27/2021 HYDROmorphone [...] Unit) documented in this encounter Care Teams Hand Glove Cleaner Relationship Specialty Start Date End Date Lisbet Solitario MD [address] [place] [address] PCP - General Family Medicine 01/30/16 08/19/21 documented as of this encounter
--- OUTSIDE RECORDS SUMMARY | 2024-02-03 16:59 | XMS_ITS | Encounter Summary ---
Author Organization [facility] [place] [address] Care Team Providers Care Package Winder Name Role Phone Lisbet Solitario MD Primary Care Provider [phone] Encounter Details Date Type Department Care Team (Late st Contact Info) Description 05/20/2021 1:55 PM EST Ancillary Procedure Radiology Library at [facility] [place] [phone] Lisbet Solitario MD [address] [place] [address] Social History Tobacco Use Types Packs/Day Years Used Date Smoking Tobacco: Never Smokeless Tobacco: Never Sex and Gender Information Value Date Recorded Sex Assigned at Male 05/23/2021 10:26 AM EST Gender Identity Not on file Sexual Orientation Not on file documented as of this encounter Plan of Treatment Upcoming Encounters Date Type Department Care Team (Late st Contact Info) Description 02/16/2024 9:15 AM EDT Laboratory Appointment Lab at [facility] Hematology Oncology [address] [place] [address] 02/16/2024 10:20 AM EDT [place] [phone] Mitali Griffiths, SWIMMING POOL ATTENDANT [facility] [place] [address] 02/16/2024 1:30 PM EDT Office Visit [place] [address] Albino Bartholomew MD [facility] DR [place] [address] 04/17/2024 10:00 AM EST Office Visit Dermatology at [address] [place] [address] Oli Winter MD [address] [facility] [place] [address] documented as of this encounter Procedures Procedure Name Priority Date/Time Associated Diagnosis Comments FILM LIBRARY STORAGE ONLY CT ABDOMEN AND PELVIS Routine 05/20/2021 1:54 PM EST documented in this encounter Results * Film Library- Storage Only CT Abdomen & Pelvis (05/20/2021 1:54 PM EST) Narrative [facility] - 05/20/2021 1:54 PM EST This exam is auto-finalizing. It's purpose is for storage only. Lisbet Solitario MD [facility] FILM LIBRARY ORD ERABLES [place], [place] documented in this encounter Visit Diagnoses Not on filedocumented in this encounter Care Teams Package Winder Relationship Specialty Start Date End Date Lisbet Solitario MD [address] [place] [address] PCP - General Family Medicine 01/30/16 08/19/21 documented as of this encounter
--- OUTSIDE RECORDS SUMMARY | 2024-02-03 16:59 | XMS_ITS | Encounter Summary ---
Author Organization [facility] [place] [address] Care Team Providers Care Manager Nursing Home Name Role Phone Lisbet Solitario MD Primary Care Provider [phone] Encounter Details Date Type Department Care Team (Late st Contact Info) Description 06/24/2021 11:59 PM EST Anesthesia Event [address] [place] [address] Gaby Capone, RN Anesthesia Record Procedure Summary Procedure Name Responsible Anesthesiologist Anesthesia Start Time Anesthesia Stop Time Acute Pain Medicine Service (consult) Events No events on file. Meds * Agents No agents on file. * Blood No blood administrations on file. Lines, Drains, and Airways No LDAs on file. documented in this encounter Social History Tobacco Use Types Packs/Day [...] [facility] Hemat[facility] Oncology [address] [place] [id number] 02/16/2024 10:20 AM EDT Hospital [place] [phone] Mitali Griffiths APRN [facility] DR [place] [address] 02/16/2024 1:30 PM EDT Office Visit Hematology [place] [address] Albino Bartholomew MD [facility] DR HEMATOLOGY AND ONCOLOGY [place], [place] [id number] 04/17/2024 10:00 AM EST Office Visit Dermatology at [facility] [address] [place] [phone] Oli Winter MD [address] [facility] [place] [place] [address] documented as of this encounter Visit Diagnoses Not on filedocumented in this encounter Care Teams Manager Nursing Home Relationship Specialty Start Date End Date Lisbet Solitario MD [address] [place] [address] PCP - General Family Medicine 01/30/16 08/19/21 documented as of this encounter
--- OUTSIDE RECORDS SUMMARY | 2024-02-03 16:59 | XMS_ITS | Encounter Summary ---
Author Organization [facility] Address [facility] [place] [address] Care Team Providers Care Boat Outfitter Name Role Phone Lisbet Solitario MD Primary Care Provider Encounter Details Date Type Department Care Team (Late st Contact Info) Description 05/29/2021 [place]phone [place] [phone] Brittany Steele Social History Tobacco Use Types Packs/Day Years Used Date Smoking Tobacco: Never Smokeless Tobacco: Never Overall Financial Resource Strain (CARDIA) Answe r [...] encounter Miscellaneous Notes * Telephone Encounter - Brittany Steele Mikaela - 05/29/2021 9:51 AM EST 1. ASK: TRAVEL ???Have you travelled outside of [place] ([place], [place], [place], [place], [place], [place]) in the past 14 days??? 2. ASK: EXPOSURE Have you been in contact with anyone suspected or confirmed to have COVID-19 in the past 14 days??? 3. ASK: SYMPTOMS Do you have any new or worsening symptoms on this list that are not related to another medical condition? Fever or chills ?? Cough ?? Shortness of breath or difficulty breathing ?? Fatigue ?? Muscle or body aches ?? Headache ?? Loss of taste or smell ?? Sore throat ?? Congestion or runny nose ?? Nausea or vomiting ?? Diarrhea If 'Yes' to any of the questions above Transfer patient to the Covid-19 Hotline Number ([phone]) for further instructions. If 'No' to all of the questions above Is this the first test for Covid 19 No If no, please list date of previous test, result, and type of test (Molecular, Antigen, Antibody orunknown): October 2019, a few home tests, all Neg Resides in Nursing/penitentiary or other residential setting No Employee or Household Member of Employee No Healthcare Worker No Telephone call placed/received to schedule Covid 19 testing with patient. Ordering provider: Dr. Jordan Hou Testing Facility: [facility] Date of Testin06/20/2021 Time of Testin:00pm Symptoms: No Give directions to testing facility. All passengers in the vehicle MUST wear a mask. Leave dogs/pets at home or have them crated/behind a net. documented in this encounter Plan of Treatment Upcoming Encounters Date Type Department Care Team (Late st Contact Info) Description 02/16/2024 9:15 AM EDT Laboratory Appointment Lab at [facility] Hematology Oncology [address] [place] [address] 02/16/2024 10:20 AM EDT Hospital Encounter CT Scan at [place] [phone] Mitali Griffiths APRN [facility] DR HEMATOLOGY [place] [address] 02/16/2024 1:30 PM EDT Office Visit Hematology and Oncology at [place] [phone] Albino Bartholomew MD [facility] DR HEMATOLOGY [place] [address] 04/17/2024 10:00 AM EST Office Visit Dermatology at [facility] [address] [place] [address] Oli Winter MD [address] [facility] [place] [place] [address] documented as of this encounter Visit Diagnoses Not on filedocumented in this encounter Care Teams Boat Outfitter Relationship Specialty Start Date End Date Lisbet Solitario MD [address] [place] [address] PCP - General Family Medicine 01/30/16 08/19/21 documented as of this encounter
--- OUTSIDE RECORDS SUMMARY | 2024-02-03 16:59 | XMS_ITS | Encounter Summary ---
Author Organization [facility] Address [facility] [place] [address] Care Team Providers Care Radio News Anchor Name Role Phone Lisbet Solitario MD Primary Care Provider [phone] Encounter Details Date Type Department Care Team (Late st Contact Info) Description 05/29/2021 8:30 PM EST Ancillary Procedure Radiology Library at [facility] [place] [phone] Jordan Hou MD [facility] [place] [address] Social History Tobacco Use Types Packs/Day Years [...] [facility] Hematology Oncology [address] [place] [address] 02/16/2024 10:20 AM EDT Hospital [place] [phone] Mitali Griffiths APRN [facility] DR HEMATOLOGY [place] [address] 02/16/2024 1:30 PM EDT Office Visit Hematology and Oncology at [facility] [place] [address] Albino Bartholomew MD [facility] DR HEMATOLOGY [place] [address] 04/17/2024 10:00 AM EST Office Visit Dermatology at [facility] [address] [place] [address] Oli Winter MD [address] [facility] [place] [address] documented as of this encounter Procedures Procedure Name Priority Date/Time Associated Diagnosis Comments FILM LIBRARY STORAGE ONLY CT CHEST Routine 05/29/2021 8:29 PM EST documented in this encounter Results * Film Library- Storage Only CT Chest (05/29/2021 8:29 PM EST) Narrative [facility] - 05/29/2021 8:29 PM EST This exam is auto-finalizing. It's purpose is for storage only. Jordan Hou MD IMG FILM LIBRARY O RDERABLES Performing Organization Address City/State/[facility] Co de Phone Number [place], [place] documented in this encounter Visit Diagnoses Not on filedocumented in this encounter Care Teams Radio News Anchor Relationship Specialty Start Date End Date Lisbet Solitario MD [address] [place] [address] PCP - General Family Medicine 01/30/16 08/19/21 documented as of this encounter
--- OUTSIDE RECORDS SUMMARY | 2024-02-03 16:59 | XMS_ITS | Encounter Summary ---
Author Organization [facility] Address [facility] [place] [address] Care Team Providers Care Equipment Maintenance Superintendent Name Role Phone Lisbet Solitario MD Primary Care Provider [phone] Reason for Visit * Auth/Cert Specialty Diagnoses / Procedures Referred By Burak t Referred To Contact Diagnoses Renal mass RENAL MASS Procedures PRO REMV KIDNEY, RADICAL PRO CYSTOURETHROSCOPY @NEPHRECTOMY, RADICAL W\REG LYMPHADENECTOMY &\OR VENA CAVA THROMBECTOMY (WRVU 23.81) CYSTO, CYSTOURETHROSCOPY, DIAGNOSTIC (WRVU 2.23) Referral ID Status Reason Start Date Expiration Date Visits Re quested Visits Authorized [id number] 1 1 Encounter Details Date Type Department Care Team (Late st Contact Info) Description 06/20/2021 1:00 PM EST Public [place] [address] COVID-19 ruled out Social History Tobacco Use Types Packs/Day Years [...] [facility] Hematology Oncology [address] [place] [address] 02/16/2024 10:20 AM EDT Hospital [place] [address] Mitali Griffiths APRN [facility] DR [place] [address] 02/16/2024 1:30 PM EDT Office Visit Hematology [place] [address] Albino Bartholomew MD [facility] DR HEMATOLOGY AND ONCOLOGY [place] [id number] 04/17/2024 10:00 AM EST Office Visit Dermatology at [facility] [address] [place] [address] Oli Winter MD [address] [facility] [place] [address] documented as of this encounter Procedures Procedure Name Priority Date/Time Associated Diagnosis Comments COVID-19 PCR Routine 06/20/2021 2:40 PM EST COVID-19 ruled out documented in this encounter Results * COVID-19 PCR (06/20/2021 2:40 PM EST) SARS-CoV-2 RNA Not Detected Not Detected [...] diagnosis of COVID-19 is performed using the [employer] m SARS-CoV-2 Assay as authorized by the FDA Emergency Use Authorization (EUA). This EUA assay is intended for In-vitro Diagnostic (IVD) use with respiratory specimens such as nasopharyngeal swabs collected from individuals during the acute phase of infection. This assay is performed based on the instructions for use provided by [employer] and additional guidance provided by [facility] and FDA. Testing is performed in the [facility] Laboratory within the Department of Pathology and Laboratory Medicine at [facility], certified under the Clinical Laboratory Improvement Amendments [...] fact sheets at the following FDA website: https://www.fda.gov/medical-devices/ntcgvahvnym-gvrmjeh-9880-yyouw-82-nfkrvdfmt- use-a cjnsvequldqjv-jygsusl-hyvbsfq/ksxbt-kvvkoykwfua-gqte SARS-CoV-2 RNA Source PROGRAM PROJECT MANAGER Swab [facility] Nasopharyngeal Swab 06/20/19 2:40 PM EST 06/20/2021 2:40 PM EST Comment:Symptoms->Asymptomat ic Narrative Resulting Agency Comment Spec In Lab Jordan Hou MD MOLECULAR ORDERABL ES Performing Organization Address City/State/[facility] Co de Phone Number [facility] [place] [address] documented in this encounter Visit Diagnoses Diagnosis COVID-19 ruled out documented in this encounter Care Teams Equipment Maintenance Superintendent Relationship Specialty Start Date End Date Lisbet Solitario MD [address] [place] [address] PCP - General Family Medicine 01/30/16 08/19/21 documented as of this encounter
--- OUTSIDE RECORDS SUMMARY | 2024-02-03 16:59 | XMS_ITS | Encounter Summary ---
Author Organization [facility] Address [facility] [place] [address] Care Team Providers Care Project Engineer Name Role Phone Lisbet Solitario MD Primary Care Provider [phone] Reason for Visit * Auth/Cert Specialty Diagnoses / Procedures Referred By Burak t Referred To Contact Diagnoses Renal mass RENAL MASS Procedures PRO REMV KIDNEY, RADICAL PRO CYSTOURETHROSCOPY @NEPHRECTOMY, RADICAL W\REG LYMPHADENECTOMY &\OR VENA CAVA THROMBECTOMY ([facility]U 23.81) CYSTO, CYSTOURETHROSCOPY, DIAGNOSTIC ([facility] 2.23) Referral ID Status Reason Start Date Expiration Date Visits Re quested Visits Authorized [id number] 1 1 Encounter Details Date Type Department Care Team (Late st Contact Info) Description 06/23/2021 7:36 AM EST Anesthesia [place] [address] Erica Alves MD [facility] [place] [address] Caryn Portillo MD [facility] [place] [address] Anesthesia Record Procedure Summary Procedure Name Responsible Anesthesiologist Anesthesia Start Time Anesthesia Stop Time @NEPHRECTOMY, RADICAL W\REG LYMPHADENECTOMY &\OR VENA CAVA THROMBECTOMY ([facility]) (Left: Flank) Erica Alves MD 06/23/21 0736 06/23/21 1210 Events Date Time Event Comment 06/23/2021 0722 0736 AN Verify 0736 Start 0747 AN Verify 0747 An Start Data 0755 An Induction 0801 An Intubation 0823 Anesthesia Ready 0851 Skin Incision 1152 Extubation/LMA Out 1155 an stop data 1209 Recovery or ICU Handoff Fabiola ent care was transferred to the destination unit staff after review of the patient's medical history, current anesthetic/surgical status and plan, according to the Provider Handoff Checklist. 1210 Stop Meds Name Total Midazolam 2 mg fentaNYL 250 mcg IV Lidocaine 100 mg Propofol 300 mg Rocuronium 80 mg ceFAZolin (Ancef) 2 g in dextrose 5% 100 mL infusion 2 g lidocaine (Xylocaine) 1% (10 mg/mL) inje ction 3 mg 3 mL Dexamethasone 4 mg PHENYLephrine 240 mcg BUpivacaine 0.1% with HYDROmorphone 10 m cg/mL 11 mL HYDROmorphone (Dilaudid) 10 mcg/mL, BUpivacaine (Marcaine) 0.1% (0.1 mg/mL) (1/10%) in sodium chloride 0.9% 250 mL epidural 17.6 mL Ondansetron 8 mg Glycopyrrolate 0.8 mg Neostigmine 5 mg Lactated Ringers 1,600 mL * Agents Name O2 Air N2O Sevoflurane (et) * Blood No blood administrations on file. Lines, Drains, and Airways Type Details Placement Removal Incision 06/23/21; 0853; Left , lateral; flank; vertical 06/23/21 0853 by Jeaneth Phipps, RN (RETIRED) Peripheral IV Line - Single Lumen 06/23/21; 0725; metacarpal vein (top of hand), left; [id number] catheter system; 20 gauge; Remigio; 06/27/21; 1125 06/23/21 0725 by Jaimee Flood RN 06/27/21 1125 by Dee Dee Jaime, DUANE Epidural 06/23/21; 0733; thor acic; T8-9, THERESA at 5.5cm, 14.75cm at skin; Dr. Gudino / Dr. Chua; analgesia, continuous infusion; 06/26/21; 190906/23/21 07 by Gaby Capone RN 06/26/211909 by Lorena Toledo RN ETT Mask Ventilation: Ea sy (1); ETT Type: Cuffed, Oral; ETT Size: 7.5 mm; Mac Blade: 4; Notes: Asleep, Pre-O2, Stylette; Attempts: 1; Laryngoscopy Grade: 1; ETT Placement Verified By: Capnometry, Visual; Secured at Teeth: 23 cm; Inserted by: MD Lindsey; Removal Date: 06/23/21; Removal Time: 1152 06/23/21 0801 by Caryn Portillo MD 06/23/21 115 by Caryn Portillo MD (RETIRED) Peripheral IV Line - Single Lumen 06/23/21; 0815; median vein (underside of arm), right; [id number] catheter system; 20 gauge; MD Long; 06/27/21; 1124 06/23/21 0815 by Caryn Portillo MD 06/27/21 1124 by Dee Dee Jaime RN Arterial Line 06/23/21; 0822; radi al artery, left; 20 gauge; Guidewire, Ultrasound Guidance; Yes - US guidance used but Image NOT saved; continuous blood pressure monitoring; MD Lindsey; Sterile Prep, Sterile Gloves; LDA not present upon assessment; 06/25/21; 0132 06/23/21 0822 by Caryn Portillo MD 06/25/21 0132 by Kenzie Jara RN NG/OG Tube 06/23/21; 0825; orogastric; 06/23/21; 1140 06/23/21 0825 by Caryn Portillo MD 06/23/21 1140 by Caryn Portillo MD Urethral Catheter 06/23/21; 0848; Need for intraoperative urine output monitoring; indwelling double lumen catheter; latex; 16; inserted at this facility; 1; 10; 10; drainage bag to dependent drainage; changed out by in PACU; 06/27/21; 0640 06/23/21 0848 by Jeaneth Phipps RN 06/27/21 0640 by Juan Jose Jackson LNA documented in this encounter Social History Tobacco [...] on file documented as of this encounter OR Notes * Anesthesia Postprocedure Evaluation - Caryn Portillo MD - 06/23/2021 12:10 PM EST Department of Anesthesiology Post-procedure Note Patient: Raymundo Tenorio Procedure Summary Date: 06/23/21 Room / Location: [address] MAIN OR Anesthesia Start: 0736 Anesthesia Stop: 1210 Procedures: @NEPHRECTOMY, RADICAL W\REG LYMPHADENECTOMY &\OR VENA CAVA THROMBECTOMY ([facility] 23.81) (Left Flank) CYSTO, CYSTOURETHROSCOPY, DIAGNOSTIC ([facility] 2.23) (N/A Ureter) Diagnosis: (RENAL MASS) Surgeons: Jordan Hou MD Responsible Provider: Erica Alves MD Anesthesia Type: general ASA Status: 2 All Anesthesia Providers: Anesthesiologist: Erica Alves MD Food Sampler: Caryn Portillo MD Vitals Value Taken Time BP 130/96 06/23/21 1203 Temp Pulse 57 06/23/21 1209 Resp 10 06/23/21 1209 SpO2 95 % 06/23/21 1209 Pain Level Vitals shown include unvalidated device data. Patient Location: PACU/[facility] Level of Consciousness: Awake and Alert Pain Management: Satisfactory Analgesia PONV: None Cardiovascular Status: Hemodynamically Stable Respiratory Status: Room Air Postoperative Fluid Status: Intravascular EUvolemia Possible Anesthetic Complications: NONE apparent at time of evaluation Final Primary Anesthesia Type: General (The anesthetic type performed was the same as planned.) Comments: Mild delirium upon emergence that resolved in about 10-15 minutes without the need for pharmacologic intervention. Currently, Raymundo reports feeling comfortable. No complications noted at this time. Caryn Portillo MD * Anesthesia Procedure Notes - Kieran Chua MD - 06/23/2021 7:50 AM EST Associated Order(s): Neuraxial Block Procedure: Neuraxial Block Post-op Pain Control Type: Epidural The patient was greeted. The sedation plan, its benefits, risks and alternatives were discussed with the patient. The patient has consented to the procedure. The medical history and chart were reviewed. The timeout was performed. Start time: 06/23/2021 7:30 AM End time: 06/23/2021 7:41 AM Patient Prep Position: Prone Prep: Hand Hygiene, Hat, Mask, Sterile Gloves, Gown, Chlorhexidine and Patient Draped Injection technique: continuous Skin Anesthetic Lidocaine 1% 3 ml Procedure Technique Level of needle insertion: L2-3 Needle approach: paramedian Needle Type: Tuohy Gauge: 17 Needle length: 3.5 in Needle insertion depth when THERESA achieved: 5 cm Technique for Loss of Resistance: THERESA saline Catheter at skin depth: 14.5 cm Dressing/Secured with: Chlorhexidine Tegaderm Number of attempts: 1 Medications: Date/Time: 06/23/2021 7:30 AM Events/Notes Level of Epidural Tip via Fluoroscopy: T8-9 Iohexol 300 mgI/mL mL Additional Notes: Technically straightforward procedure. No pain or paresthesias noted. Epidural catheter in correct location by PA/Lateral dye study (non- subdural, non-vascular, non-intrathecal). Resident/SECURITY RISK ANALYST: Kieran Chua MD Second Resident/SECURITY RISK ANALYST: SRNA: Fellow: Attending Physician: Lindy Gudino MD ~~~~~~~~~~~~~~~~~~~~~~~~~~~~~~~~~~~~~~~~~~~~~~~~~~~~~~~~~~~~ * Anesthesia Preprocedure Evaluation - Caryn Portillo MD - 06/20/2021 2:32 PM EST Pre-Anesthesia Evaluation for: Raymundo osorio 66 y.o. male. Procedure(s): @NEPHRECTOMY, RADICAL W\REG LYMPHADENECTOMY &\OR VENA CAVA THROMBECTOMY ([facility] 23.81) CYSTO, CYSTOURETHROSCOPY, DIAGNOSTIC ([facility]U 2.23) Patient Active Problem List Diagnosis Date Noted ??? Renal mass 05/27/2021 Past Medical History: Diagnosis Date ??? Claudication lower left leg , due to achilles surgery 2000 ??? High blood pressure losartan 100mg ??? Hyperlipidemia atorvastatin 20mg Past Surgical History: Procedure Laterality Date ??? ACHILLES TENDON SURGERY ??? HERNIA REPAIR Left inguinal Social History Tobacco Use ??? Smoking status: Never Smoker ??? Smokeless tobacco: Never Used Substance Use Topics ??? Alcohol use: Never Social History Substance and Sexual Activity Drug Use Never Allergies Allergen Reactions ??? Peanut Medications: MAR and/or home medications have been reviewed. Physical Exam: Preprocedure Vitals Current as of 06/20/21 1432 No BP, pulse, respiration, SpO2, or temperature recorded. Height: Weight: BMI: IBW: Airway Assessment: Mallampati: II TM distance: >3 FB Neck ROM: full Cardiovascular Assessment: Rate: normal Pulmonary Assessment: unlabored breathing Dental Assessment: - normal exam Misc Assessment: Last Filed Perioperative Cognitive Screening Value Time User AD8 Total Score: 0 06/09/2021 1:00 PM Sayra Cueva RN AD8 Informant: Patient 06/09/2021 1:00 PM Sayra Cueva RN CFS Frailty Score: 1 06/09/2021 1:00 PM Sayra Cueva RN Anesthesia Plan: ASA 2 general, with a(n) intravenous induction 66M BMI 29 with a LEFT renal mass presenting for open radical left nephrectomy and flexible cystoscopy. PMH: HTN, HLD, LLE claudication 2/2 achilles surgery No anesthetic record on file. Plan: Preoperative acetaminophen Epidural with APS Arterial line GA/ETT Notes and labs reviewed. Patient personally seen and examined. No prior complications with anesthesia. Appropriately NPO. >4 METS. No GERD symptoms. We discussed benefits, indications, and risks of anesthesia. Consent signed and in chart. Region - Other Informed Consent: Anesthetic plan and risks discussed with patient and spouse. Use of blood products discussed with patient and spouse who consented to blood products. Plan discussed with attending and resident. Anesthesia Screening documented in this encounter Plan of Treatment Upcoming Encounters Date Type Department Care Team (Late st Contact Info) Description 02/16/2024 9:15 AM EDT Laboratory Appointment Lab at [facility] Hematology Oncology [address] [place] [address] 02/16/2024 10:20 AM EDT Hospital [place] [phone] Mitali Griffiths APRN [facility] DR HEMATOLOGY [place] [address] 02/16/2024 1:30 PM EDT Office Visit H[place]ology [place] [address] Albino Bartholomew MD [facility] DR HEMATOLOGY [place] [address] 04/17/2024 10:00 AM EST Office Visit Dermatology at [facility] [address] [place] [address] Oli Winter MD [address] [facility] [address] documented as of this encounter Procedures Procedure Name Priority Date/Time Associated Diagnosis Comments ANE NEURAXIAL APS USE Routine 06/23/2021 7:30 AM EST documented in this encounter Results * Neuraxial Block (06/23/2021 7:30 AM EST) Narrative Lindy Gudino MD - 06/23/2021 7:30 AM EST Kieran Chua MD ? 06/23/2021 ??7:52 AM Procedure: ?? Neuraxial Block Post-op Pain Control Type: Epidural The patient was greeted. The sedation plan, its benefits, risks and alternatives were discussed with the patient. ??The patient has consented to the procedure. ??The medical history and chart were reviewed. ??The timeout was performed. Start time: 06/23/2021 7:30 AM End time: 06/23/2021 7:41 AM Patient Prep Position: Prone Prep: Hand Hygiene, Hat, Mask, Sterile Gloves, Gown, Chlorhexidine and Patient Draped Injection technique: continuous Skin Anesthetic Lidocaine 1% ??3 ml Procedure Technique Level of needle insertion: L2-3 Needle approach: paramedian Needle Type: Tuohy Gauge: 17 Needle length: 3.5 in Needle insertion depth when THERESA achieved: 5 cm Technique for Loss of Resistance: THERESA saline Catheter at skin depth: 14.5 cm Dressing/Secured with: Chlorhexidine Tegaderm Number of attempts: 1 Medications: Date/Time: ??06/23/2021 7:30 AM Events/Notes Level of Epidural Tip via Fluoroscopy: T8-9 Iohexol 300 mgI/mL mL Additional Notes: ??Technically straightforward procedure. No pain or paresthesias noted. Epidural catheter in correct location by PA/Lateral dye study (non-subdural, non-vascular, non-intrathecal). ?? Resident/SECURITY RISK ANALYST: ? Kieran Chua MD Second Resident/SECURITY RISK ANALYST: SRNA: ? Fellow: ? Attending Physician: ? Lindy Gudino MD ~~~~~~~~~~~~~~~~~~~~~~~~~~~~~~~~~~~~~~~~~~~~~~~~~~~~~~~~~~~~ Lindy Gudino MD DOUGH MACHINE OPERATOR [facility] documented in this encounter Visit Diagnoses Not on filedocumented in this encounter Administered Medications Inactive Administered Medications - up to 3 most recent administrations Medication Order MAR Action Action Date Dose Rate Site ceFAZolin (Ancef) 2 g in dextrose 5% 100 mL infusion 2 g, Intravenous, RELIEF PHARMACIST TO O.R., 1 dose, On Wed06/23/21 at 0700, Administer over 30 Minutes, Indication for (Active or Suspected): Prophylaxis Given 06/23/2021 8:31 AM EST 2 g dexamethasone (Decadron) injection Intravenous, PRN, Starting on Wed06/23/21 at 0835, Until Wed06/23/21 at 1210, Anesthesia Intra-op, Routine Given 06/23/2021 8:35 AM EST 4 mg fentaNYL (pf) (50 mcg/mL) multi-dose injection Intravenous, PRN, Starting on Wed06/23/21 at 0851, Until Wed06/23/21 at 1210, Anesthesia Intra-op, Routine Given 06/23/2021 9:02 AM EST 100 mcg Given 06/23/2021 8:51 AM EST 150 mcg glycopyrrolate (Robinul) (0.2 mg/mL) multi-dose injection Intravenous, PRN, Starting on Wed06/23/21 at 1136, Until Wed06/23/21 at 1210, Anesthesia Intra-op, Routine Given 06/23/2021 11:36 AM EST 0.8 mg HYDROmorphone (Dilaudid) 10 mcg/mL, BUpivacaine (Marcaine) 0.1% [...] EST 4 mL/hr 4 mL/hr HYDROmorphone (Dilaudid) 10 mcg/mL, BUpivacaine (Marcaine) 0.1% (0.1 mg/mL) (1/10%) in sodium chloride 0.9% 250 mL epidural Epidural, Anesthesia Intra-op Given 06/23/2021 9:58 AM EST 3 mLs Given 06/23/2021 9:28 AM EST 5 mLs Given 06/23/2021 9:19 AM EST 3 mLs lactated ringers infusion Intravenous, CONTINUOUS PRN, Starting on Wed06/23/21 at 0736, Until Wed06/23/21 at 1210, Anesthesia Intra-op New Bag 06/23/2021 7:36 AM EST lidocaine (pf) (Xylocaine) (20 mg/mL) 2% injection syringe Intravenous, PRN, Starting on Wed06/23/21 at 0755, Until Wed06/23/21 at 1210, Anesthesia Intra-op, Routine Given 06/23/2021 7:55 AM EST 100 mg lidocaine (Xylocaine) 1% (10 mg/mL) injection 3 mg 3 mg (0.3 mL), Subcutaneous, ONCE PRN, 1 dose, Starting on Wed06/23/21 at 0635, Until Wed06/23/21 at 0738, for discomfort with PIV insertion, Day of Surgery (Day of Procedure), Routine Given 06/23/2021 7:38 AM EST 3 mLs midazolam (pf) (Versed) (1 mg/mL) multi-dose injection Intravenous, PRN, Starting on Wed06/23/21 at 0849, Until Wed06/23/21 at 1210, Anesthesia Intra-op, Routine Given 06/23/2021 8:49 AM EST 2 mg neostigmine (Bloxiver) (1 mg/mL) injection Intravenous, PRN, Starting on Wed06/23/21 at 1136, Until Wed06/23/21 at 1210, Anesthesia Intra-op, Routine Given 06/23/2021 11:36 AM EST 5 mg ondansetron (pf) (Zofran) (2 mg/mL) injection Intravenous, PRN, Starting on Wed06/23/21 at 1136, Until Wed06/23/21 at 1210, Anesthesia Intra-op, Routine Given 06/23/2021 11:36 AM EST 8 mg PHENYLephrine in NS (PF) (ROB-SYNEPHRINE) 0.8 mg/10 mL (80 mcg/mL) multi-dose injection Syrg Intravenous, PRN, Starting on Wed06/23/21 at 0809, Until Wed06/23/21 at 1210, Anesthesia Intra-op, Routine Given 06/23/2021 11:40 AM EST 80 mcg Given 06/23/2021 8:15 AM EST 80 mcg Given 06/23/2021 8:09 AM EST 80 mcg propofoL (Diprivan) 10 mg/mL bolus injection (Anesthesia) Intravenous, PRN, Starting on Wed06/23/21 at 0755, Until Wed06/23/21 at 1210, Anesthesia Intra-op Given 06/23/2021 8:01 AM EST 50 mg Given 06/23/2021 8:00 AM EST 50 mg Given 06/23/2021 7:57 AM EST 50 mg rocuronium (Zemuron) (10 mg/mL) multi-dose injection Intravenous, PRN, Starting on Wed06/23/21 at 0756, Until Wed06/23/21 at 1210, Anesthesia Intra-op, Routine Given 06/23/2021 9:30 AM EST 20 mg Given 06/23/2021 8:49 AM EST 10 mg Given 06/23/2021 7:56 AM EST 50 mg documented in this encounter Care Teams Project Engineer Relationship Specialty Start Date End Date Lisbet Soiltario MD [address] [place] [address] PCP - General Family Medicine 01/30/16 08/19/21 documented as of this encounter
--- OUTSIDE RECORDS SUMMARY | 2024-02-03 16:59 | XMS_ITS | Encounter Summary ---
Author Organization [facility] [place] [address] Care Team Providers Care Supervisor [employer]ery [employer] Name Role Phone Lisbet Solitario MD Primary Care Provider [phone] Encounter Details Date Type Department Care Team (Late st Contact Info) Description 06/09/2021 11:30 AM EST TH Visit (TeleHealth) [place] [phone] Social History Tobacco Use Types Packs/Day Years [...] as of this encounter Progress Notes * Sayra Cueva RN - 06/09/2021 11:30 AM EST Telephone call to patient to review the Anesthesia Questionnaire. Instructed they will get a pre-opcall the Wednesday before the surgery to get arrival time to 4W for the surgery along with NPO/clear liquid diet and medication instructions. Expresses a good understanding of this information. Has the urology instructions regading showering and clears after noon the day prior. Has not had COVID or COV ID symptoms in the past 3 months. Pre-op booklet mailed to patient. documented in this encounter Plan of Treatment Upcoming Encounters Date Type Department Care Team (Late st Contact Info) Description 02/16/2024 9:15 AM EDT Laboratory Appointment Lab [place] [facility] [place] [address] [place], [place] [id number] 02/16/2024 10:20 AM EDT Hospital Encounter CT Scan at [place] [phone] Mitali Griffiths APRN [facility] [place] [address] 02/16/2024 1:30 PM EDT Office Visit Hematology and Oncology at [place] [phone] Albino Bartholomew MD [facility] [place] [address] 04/17/2024 10:00 AM EST Office Visit Dermatology at [facility] [address] [place] [phone] Oli Winter MD [address] [facility] [place] [place] [address] documented as of this encounter Visit Diagnoses Not on filedocumented in this encounter Care Teams Supervisor Bakery Sanitation Relationship Specialty Start Date End Date Lisbet Solitario MD [address] [place] [address] PCP - General Family Medicine 01/30/16 08/19/21 documented as of this encounter
--- OUTSIDE RECORDS SUMMARY | 2024-02-03 16:59 | XMS_ITS | Encounter Summary ---
Author Organization [facility] Address [facility] [place] [address] Care Team Providers Care Investigator Narcotics Name Role Phone Lisbet Solitario MD Primary Care Provider [phone] Reason for Referral * Diagnostic Test (Routine) - Closed Specialty Diagnoses / Procedures Referred By Burak mcnair Referred To Contact Diagnoses Renal mass Procedures CT Chest wo Contrast (Generic) Jordan Hou MD [facility] [address] Referral ID Status Reason Start Date Expiration Date V isits Requested Visits Authorized [id number] Closed Specialty Service Requested 05/26/2021 11/23/2022 1 1 Reason for Visit * Reason Comments Renal Mass Encounter Details Date Type Department Care Team (Late st Contact Info) Description 05/26/2021 8:20 AM EST [place] [address] Jordan Hou MD [facility] [place] [address] Renal mass Social History Tobacco Use Types Packs/Day Years Used Date Smoking Tobacco: Never Smokeless Tobacco: Never Sex and Gender Information Value Date Recorded Sex Assigned at Male 05/23/2021 10:26 AM EST Gender Identity Not on file Sexual Orientation Not on file documented as of this encounter Last Filed Vital Signs Vital Sign Reading Time Taken Comments Blood Pressure 169/75 05/26/2021 7:56 AM EST Pulse 90 05/26/2021 7:56 AM EST Temperature - - Respiratory Rate - - Oxygen Saturation - - Inhaled Oxygen Concentration - - Weight - - Height - - Body Mass Index - - documented in this encounter Progress Notes * Jordan Hou MD - 05/26/2021 8:20 AM EST UROLOGY NEW PATIENT VISIT CC: left renal mass HPI: 66 yo male referred to me for a newly diagnosed left renal mass. He had few episodes of gross hematuria prompting a CT scan which showed a large left renal mass. He denies any abdominal pain or bony pain. He has lost 10lbs over the last year. He denies any family history of RCC and he does notsmoke. He was also found to have blood in his stool and is scheduled for a colonoscopy. History reviewed. No pertinent past medical history. Past Surgical History: Procedure Laterality Date ??? ACHILLES TENDON SURGERY ??? HERNIA REPAIR Left inguinal Social History Socioeconomic History ??? Marital status: Spouse name: None ??? Number of children: None ??? Years of education: None ??? Highest education level: None Occupational History ??? None Tobacco Use ??? Smoking status: Never Smoker ??? Smokeless tobacco: Never Used Substance and Sexual Activity ??? Alcohol use: None ??? Drug use: None ??? Sexual activity: None Other Topics Concern ??? None Social History Narrative ??? None Social Determinants of Health Financial Resource Strain: Not on file Food Insecurity: Not on file Transportation Needs: Not on file Physical Activity: Not on file Housing Stability: Not on file Family History Problem Relation Age of Onset ??? Lymphoma Mother ??? Breast Cancer Mother ??? 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 HEENT: Denies headaches and vision changes. RESP: Denies cough or breathing difficulties. CVS: Denies chest pain and VAZQUEZ. No claudication. GI: Denies nausea/vomiting/diarrhea/constipation. Normal appetite and bowels. : see hpi MUSCULOSKELETAL: Denies joint or muscle aches. Denies back pain. SKIN: Denies rashes. HEME: Denies bleeding tendencies, bruisability. EXAMINATION: Patient Vitals for the past 24 hrs: Pulse BP 05/26/21 0756 90 169/75 GENERAL: Well appearing male in NAD. Healthy appearance. HEENT: Atraumatic, normocephalic. Anicteric sclera. MMM. NECK: Supple with no significant lymphadenopathy. RESPIRATORY: Unlabored respirations with no audible wheezing. CARDIAC: Regular rhythm with no audible MGR. ABDOMEN: Large palpabable and mobile left sided abdominal mass noted. BACK: No CVA tenderness GENITALIA: Scrotum - Color and texture normal; no masses. Testicles and epididymides - No tenderness or masses. Penis - Circumcised with orthotopic meatus; no masses or surface lesions. NEUROLOGIC: Alert and oriented x 3. EXTREMITIES: Warm and well perfused with no pitting edema. LABS: none IMAGING: CT abd/pelvis reviewed by me showing a large, heterogeneous left renal mass. ASSESSMENT/PLAN: Large left renal mass suspicious for malignancy. I explained to him the findings and recommended toschedule a CT chest to complete the staging. I also recommended to schedule him for a radical left nephrectomy (open) and a flexible cystoscopy to complete the hematuria workup. I explained to him the risks of surgery, including bleeding, infection, bowel injury, hernia formation, renal failure, DVT, PE, OH, stroke and prolonged hospital course. documented in this encounter Plan of Treatment Upcoming Encounters Date Type Department Care Team (Late st Contact Info) Description 02/16/2024 9:15 AM EDT Laboratory Appoint[place] [facility] [place] [address] [place] [address] 02/16/2024 10:20 AM EDT Hospital [place] [address] Mitali Griffiths, [facility] [place] [address] 02/16/2024 1:30 PM EDT Office Visit Hematology and Oncology at [facility] [place] [address] Albino Bartholomew MD [facility] [place] [address] 04/17/2024 10:00 AM EST Office Visit Dermatology at [facility] [address] [place] [address] Oli Winter MD [address] [facility] [place] [address] documented as of this encounter Results * [...] who have questions please contact the health daycare director that requested your imaging first. ? [...] Agency Comment Unexpected Finding Jordan Hou MD [facility] ORDERABLES * (ABNORMAL) Comprehensive metabolic panel (non-fasting) (06/23/2021 7:10 AM EST) Glucose 93 65 - 199 mg/dL [facility] Comment:Diabetes: >=200 mg/d L plus symptoms Blood Urea Nitrogen 20 10 - 20 mg/dL [facility] Creatinine 1.28 0.80 - 1.50 mg/dL [facility] Sodium 137 135 - 145 mmol/L [facility] Potassium 4.2 3.5 - 5.0 mmol/L [facility] Comment: Please note: ??Patients with WBC >100,000 may have falsely elevated Potassium levels. ??For accurate Potassium quantification in these patients send serum separator tube (gold top) for subsequent determinations. ??Contact the Clinical Chemistry Laboratory if there are any questions. Chloride 106 98 - 107 mmol/L [facility] Carbon Dioxide 21(L) 22 - 31 mmol/L [facility] Anion Gap 10 5 - 15 mmol/L [facility] Calcium 10.0 8.5 - 10.5 mg/dL [facility] Protein, Total 7.3 6.1 - 8.0 g/dL [facility] Albumin 3.7 3.2 - 5.2 g/dL [facility] Aspartate Aminotransferase 20 0 - 39 unit/L [facility] Alanine Aminotransferase 30 0 - 55 unit/L [facility] Alkaline Phosphatase 129 40 - 130 unit/L [facility] Bilirubin, Total 0.6 0.2 - 1.3 mg/dL [facility] Est Glomerular Filtration Rate 58(L) >=60 mL/min/1. 73 m?? [facility] Comment: This patient? s estimated [...] Lab Jordan Hou MD CHEMISTRY ORDERABL ES [facility] [place] [address] * EKG 12 Lead (06/23/2021 7:03 AM EST) Ventricular rate 77 BPM MUSE SYSTEM Atrial Rate 77 BPM MUSE SYSTEM P-R Interval 228 ms MUSE SYSTEM QRS Duration 92 ms MUSE SYSTEM Q-T Interval 384 ms MUSE SYSTEM QTC Calculated (Bezet) 434 ms MUSE SYSTEM Calculated P Cadet 24 degrees MUSE SYSTEM Calculated R Cadet 33 degrees MUSE SYSTEM Calculated T Cadet 30 degrees MUSE SYSTEM INTERPRETATION Sinus rhythm with 1st degree A-V block Septal infarct , age undetermined Abnormal ECG No previous ECGs available Confirmed by fellow MD Reyna, Luisito ([id number]) on 06/23/2021 1:55:29 PM Confirmed by MD Jt, Mario ([id number]) on 06/23/2021 2:05:10 PM MUSE SYSTEM 06/23/2021 7:03 AM EST 06/23/2021 2:05 PM EST Jordan Hou MD ECG ORDERABLES MUSE SYSTEM documented in this encounter Visit Diagnoses Diagnosis Renal mass Unspecified disorder of kidney and ureter Renal mass Unspecified disorder of kidney and ureter documented in this encounter Care Teams Investigator Narcotics Relationship Specialty Start Date End Date Lisbet Solitario MD [address] [place] [address] PCP - General Family Medicine 01/30/16 08/19/21 documented as of this encounter
--- OUTSIDE RECORDS SUMMARY | 2024-02-03 16:59 | XMS_ITS | Encounter Summary ---
Author Organization [facility] Address [facility] [place] [address] Care Team Providers Care Parts Expediter Name Role Phone Lisbet Solitario MD Primary Care Provider [phone] Encounter Details Date Type Department Care Team (Late st Contact Info) Description 05/21/2021 Telephone Urology at [facility] [place] [phone] Jordan Hou MD [facility] [place] [address] Social History Tobacco Use Types Packs/Day Years [...] [facility] H[facility] Oncology [address] [place] [address] 02/16/2024 10:20 AM EDT [place] [phone] Mitali Griffiths APRN [facility] DR HEMATOLOGY [place] [address] 02/16/2024 1:30 PM EDT Office Visit [place] [address] Albino Bartholomew MD [facility] DR HEMATOLOGY [place] [address] 04/17/2024 10:00 AM EST Office Visit Dermatology at [facility] [address] [place] [phone] Oli Winter MD [address] [facility] [place] [address] documented as of this encounter Visit Diagnoses Not on filedocumented in this encounter Care Teams Parts Expediter Relationship Specialty Start Date End Date Lisbet Solitario MD [address] [place] [address] PCP - General Family Medicine 01/30/16 08/19/21 documented as of this encounter
--- OUTSIDE RECORDS SUMMARY | 2024-02-03 16:59 | XMS_ITS | Encounter Summary ---
Author Organization [facility] Address [facility] [place] [address] Care Team Providers Care Sales Order Coordinator Name Role Phone Lisbet Solitario MD Primary Care Provider [phone] Encounter Details Date Type Department Care Team (Late st Contact Info) Description 06/02/2021 Telephone Urology at [facility] [place] [phone] Jordan Hou MD [facility] [place] [address] Social History Tobacco Use Types Packs/Day Years [...] * Telephone Encounter - Eliz Muniz - 06/02/2021 2:10 PM EST Patient calling in regards to CT results, he would like a call back to discuss. PHONE: [phone] documented in this encounter Plan of Treatment Upcoming Encounters Date Type Department Care Team (Late st Contact Info) Description 02/16/2024 9:15 AM EDT Laboratory Appointment Lab at [facility] Hematology Oncology [address] [place] [address] 02/16/2024 10:20 AM EDT Hospital Encounter [place] [phone] Mitali Griffiths APRN [facility] [place] [address] 02/16/2024 1:30 PM EDT Office Visit Hematology [place] [address] Albino Bartholomew MD [facility] [place] [address] 04/17/2024 10:00 AM EST Office Visit Dermatology at [address] [place] [address] Oli Winter MD [address] [facility] [place] [address] documented as of this encounter Visit Diagnoses Not on filedocumented in this encounter Care Teams Sales Order Coordinator Relationship Specialty Start Date End Date Lisbet Solitario MD [address] [place] [address] PCP - General Family Medicine 01/30/16 08/19/21 documented as of this encounter
--- OUTSIDE RECORDS SUMMARY | 2024-02-03 16:59 | XMS_ITS | Encounter Summary ---
Author Organization [facility] Address [facility] [place] [address] Care Team Providers Care Network Diagnostic Support Specialist Name Role Phone Lisbet Solitario MD Primary Care Provider [phone] Encounter Details Date Type Department Care Team (Late st Contact Info) Description 05/28/[address] [facility] [place] [phone] Jordan Hou MD [facility] [place] [address] Social History Tobacco Use Types Packs/Day Years [...] encounter Miscellaneous Notes * Telephone Encounter - Hank Frederick - 05/28/2021 8:51 AM EST Radiology at [facility] calling in regards to patient, the radiologist looked at the order and is a little concerned as to why the patient is having the CT without contrast and would lie to have a new order to be sent so the patient can have the CT with contrast unless there is a reasonwhy the patient is having it without. documented in this encounter Plan of Treatment Upcoming Encounters Date Type Department Care Team (Late st Contact Info) Description 02/16/2024 9:15 AM EDT Laboratory Appointment Lab at [facility] [place] Oncology [address] [place] [address] 02/16/2024 10:20 AM EDT Hospital [place] [phone] Mitali Griffiths APRN [facility] [address] [place] [address] 02/16/2024 1:30 PM EDT Office Visit Hematology [place] [address] Albino Bartholomew MD [facility] [address] [place] [address] 04/17/2024 10:00 AM EST Office Visit Dermatology at [address] [place] [address] Oli Winter MD [address] [facility] [place] [address] documented as of this encounter Visit Diagnoses Not on filedocumented in this encounter Care Teams Network Diagnostic Support Specialist Relationship Specialty Start Date End Date Lisbet Solitario MD [address] [place] [address] PCP - General Family Medicine 01/30/16 08/19/21 documented as of this encounter
--- OUTSIDE RECORDS SUMMARY | 2024-02-03 16:59 | XMS_ITS | Encounter Summary ---
Author Organization [facility] Address [facility] [place] [address] Care Team Providers Care Geothermal Technician Name Role Phone Lisbet Solitario MD Primary Care Provider [phone] Encounter Details Date Type Department Care Team (Late st Contact Info) Description 06/02/2021 [place] [address] Jordan Hou MD [facility] [place] [address] Social History Tobacco Use Types Packs/Day Years Used Date Smoking Tobacco: Never Smokeless Tobacco: Never Sex and Gender Information Value Date Recorded Sex Assigned at Male 05/23/2021 10:26 AM EST Gender Identity Not on file Sexual Orientation Not on file documented as of this encounter Miscellaneous Notes * Telephone Encounter - Jordan Hou MD - 06/02/2021 4:19 PM EST I contacted the patient to inform him about the CT chest findings of a small 3mm right apical pulmonary nodule. I explained to him that I recommended to proceed with surgery as scheduled. documented in this encounter Plan of Treatment Upcoming Encounters Date Type Department Care Team (Late st Contact Info) Description 02/16/2024 9:15 AM EDT Laboratory Appointment [place] [facility] [place] [address] [place] [id number] 02/16/2024 10:20 AM EDT Hospital [place] [address] Mitali Griffiths APRN [facility] DR HEMATOLOGY [place] [address] 02/16/2024 1:30 PM EDT Office Visit [place]ology [place] [address] Albino Bartholomew MD [facility] DR HEMATOLOGY [place] [address] 04/17/2024 10:00 AM EST Office Visit Dermatology at [facility] [address] [place] [address] Oli Winter MD [address] [facility] [place] [address] documented as of this encounter Visit Diagnoses Not on filedocumented in this encounter Care Teams Geothermal Technician Relationship Specialty Start Date End Date Lisbet Solitario MD [address] [place] [address] PCP - General Family Medicine 01/30/16 08/19/21 documented as of this encounter
--- OUTSIDE RECORDS SUMMARY | 2024-02-03 16:59 | XMS_ITS | Encounter Summary ---
Author Organization [facility] Address [facility] [place] [address] Care Team Providers Care Radio Announcer Name Role Phone Lisbet Solitario MD Primary Care Provider [phone] Reason for Visit * Reason Comments Skin Check Encounter Details Date Type Department Care Team (Late st Contact Info) Description 05/15/2019 1:15 PM EST Office Visit Dermatology at [facility] [address] [place] [address] Oli Winter MD [address] [facility] [place] [address] Plantar wart; Multiple benign nevi; Seborrheic keratoses; Rodríguez angioma; Family history of melanoma Social History Tobacco Use Types Packs/Day Years Used Date Smoking Tobacco: Never Smokeless Tobacco: Never Sex and Gender Information Value Date Recorded Sex Assigned at Male 05/23/2021 10:26 AM EST Gender Identity Not on file Sexual Orientation Not on file documented as of this encounter Progress Notes * Oli Winter MD - 05/15/2019 1:15 PM EST Images from the original note were not included. Dermatology Dermatology at [facility] FOLLOW-UP Chief Complaint: Skin exam History of Present Illness Cristofer Tenorio is a 64 y.o. male. Family history of melanoma and pancreatic cancer, who presents with the following concerns: ?? No specific lesions that are concerning. No spots that are changing colors, itching, or bleeding. Requests full body skin cancer screening. Interval changes to Medications and Medical, Family and Social Histories (including alcohol and tobacco use) Since Last Visit 03/01/2018: No significant interval history. Skin Cancer History No personal history of skin cancer Brother of melanoma, another Brother had pancreatic cancer, and Mother had breast cancer Allergies Peanut Medications has a current medication list which includes the following prescription(s): lisinopril, atorvastatin, fluocinonide, loratadine, folic acid/multivit- min/lutein, ibuprofen, and calcium. Social History Tobacco use - never Review of Systems Significant for no pertinent and acute changes in constitutional, other skin systems upon specific queries. Examination Standby: Sharri Casey Pain 0/10. Mood is appropriate. Well developed, well-nourished in no apparent distress, alert and oriented to time, person, place and situation. Patient was asked to disrobe to the level of comfort. Examination of the head - including the scalp, face, ears, nose, lips, tongue, oral mucosa - neck, chest, abdomen, back, axillae, buttocks, pubicarea, upper and lower extremities, including the nail plates, significant for the following: ?? 8 x 9 mm, verrucous papule on the ball of the left foot ?? Well-demarcated, round or oval, tinajero or brown macules and papules with benign morphology on the head, neck, trunk, right axilla, and extremities ?? Scattered, stuck-on, well-demarcated, tinajero or brown, waxy or warty papules and plaques c/w SKs onthe head, neck, trunk, and extremities ?? Multiple, rodríguez red 1-4mm papules on the head, trunk, right axilla, and extremities Assessment and Plan Plantar Wart, Ball of left foot Not bothersome per patient. If bothersome, consider treatment with cryotherapy. Nevi Morphology and uniform irregularity in families reassuring for benign nevi. Counseled: Nevi and risks for melanoma arising in a nevus. Recommend regular self-examinations. Answered all questions. Reviewed ABCDEs of melanoma, as below. Return to clinic prn for changes in color, size, shape or thickness or should bleeding or other symptoms occur. Patient agrees to plan. Seborrheic Keratoses Benign. No treatment necessary. Counseled: SKs, benign. Answered all questions. Handout given Rodríguez Angiomas Counseled: rodríguez angiomas. Benign. No treatment necessary unless symptoms develop. Handout given. Family History of Cancer Brothers (melanoma + pancreatic cancer) and Mother (breast cancer) Discussed genetic testing for BRCA gene mutation, which patient defers at this time. Recommend regular physical and provider skin examinations. Patient Counseled [Skin Cancer] Counseled: sun protection, regular self skin exams, provider skin exams every 12 months, and the ABCDEs of melanoma/NMSC. Answered all questions. Handouts on how to do a self-exam, skin cancers and sun protection given to the patient. Follow-up: Skin cancer screening in May 2020 or return to clinic prn for new suspicious lesionsor if changes/symptoms in existing lesions develop. Note initiated by STEPHEN Sun has performed the documentation for this encounter in the presence of and acting as a scribe for Dr. Winter. I performed the above scribed service and agree with the accuracy of the documentation in this encounter. Oli Winter MD [facility] Section of Dermatology [facility] documented in this encounter Plan of Treatment Upcoming Encounters Date Type Department Care Team (Late st Contact Info) Description 02/16/2024 9:15 AM EDT Laboratory Appointment Lab at [facility] Hematology Oncology [address] [place] [address] 02/16/2024 10:20 AM EDT Hospital [place] [address] Mitali Griffiths APRN [facility] DR [place]AT[place] [address] 02/16/2024 1:30 PM EDT Office Visit Hematology [place] [phone] Albino Bartholomew MD [facility] DR [place] [address] 04/17/2024 10:00 AM EST Office Visit Dermatology at [facility] [address] [place] [phone] Oli Winter MD [address] [facility] [place] [address] documented as of this encounter Visit Diagnoses Diagnosis Plantar wart Multiple benign nevi Benign neoplasm of skin, site unspecified Seborrheic keratoses Rodríguez angioma Nevus, non-neoplastic Family history of melanoma Family history of other specified malignant neoplasm documented in this encounter Care Teams Radio Announcer Relationship Specialty Start Date End Date Lisbet Solitario MD [address] [place] [address] PCP - General Family Medicine 01/30/16 08/19/21 documented as of this encounter
--- OUTSIDE RECORDS SUMMARY | 2024-02-03 17:00 | XMS_ITS | Encounter Summary ---
Author Organization [facility] Address [address] [place] [address] Care Team Providers Care Auto Service Dispatcher Name Role Phone Unavailable Primary Care Provider Unavailabl e Encounter Details Date Type Department Care Team (Late st Contact Info) Description 03/27/2020 Lab Requisition [facility] Pathology & Laboratory Medicine - [facility] [address] [place], [place] [id number] Outr Resulting Lab, Provider Social History Tobacco Use Types Packs/Day Years Used Date Smoking Tobacco: Never Assessed Interpersonal Safety Answer Date Record ed Physically Hurt Never 03/27/2020 Verbally Threaten Not on file 03/27/2020 Sex and Gender Information Value Date Recorded Sex Assigned at Not on file Gender Identity Not on file Sexual Orientation Not on file documented as of this encounter Plan of Treatment Not on file documented as of this encounter Procedures Procedure Name Priority Date/Time Associated Diagnosis Comments PSA TOTAL, DIAGNOSTIC After X-Ray 03/11/2020 8:20 EST documented in this encounter Results * PSA TOTAL, DIAGNOSTIC (03/11/2020 8:20 EST) PSA 0.9 0.0 - 4.5 ng/mL 04/24/2020 10:37 EST [facility] Blood VENOUS BLOOD / Unknown 03/11/2020 8:20 EST 04/23/2020 8:14 EST Narrative [facility] - 04/24/2020 10:37 EST NOTE: Serum PSA concentration should not be interpreted as absolute evidence for the presence or absence of malignant disease. Assayed on Siemens ADVIA Centaur XPT using chemiluminescent technology.??Values obtained by using different assay methods cannot be used interchangeably. Provider Outr Resulting Lab CHEMISTRY & BLOOD GAS ORDERABLES [facility] [address] [place] [address] documented in this encounter Visit Diagnoses Not on filedocumented in this encounter
--- OUTSIDE RECORDS SUMMARY | 2024-02-03 17:00 | XMS_ITS | Encounter Summary ---
Author Organization [facility] Address [address] [place] [address] Care Team Providers Care Stoneworking Belt Sander Name Role Phone Unavailable Primary Care Provider Unavailabl e Encounter Details Date Type Department Care Team (Late st Contact Info) Description 08/12/2021 Lab Requisition [facility] Pathology & Laboratory Medicine - [facility] [address] [place] [address] Outr Resulting Lab, Provider Social History Tobacco [...] Procedure Name Priority Date/Time Associated Diagnosis Comments HEPATITIS C AB W REFLEX TO HCV RNA BY PCR Routine 08/12/2021 10:40 EDT documented in this encounter Results * HEPATITIS C AB W REFLEX TO HCV RNA BY PCR (08/12/2021 10:40 EDT) Hep C Antibody Negative Negative 08/14/2021 9:44 EDT [facility] Blood VENOUS BLOOD / Unknown 08/12/2021 10:40 EDT 08/13/2021 16:44 EDT Provider Outr Resulting Lab CHEMISTRY & BLOOD GAS ORDERABLES [facility] [address] [place] [address] documented in this encounter Visit Diagnoses Not on filedocumented in this encounter
--- OUTSIDE RECORDS SUMMARY | 2024-02-03 17:00 | XMS_ITS | Encounter Summary ---
Author Organization [facility] Address [address] [place] [address] Care Team Providers Care Data Coordinator Name Role Phone Unavailable Primary Care Provider Unavailabl e Encounter Details Date Type Department Care Team (Late st Contact Info) Description 03/17/2022 Lab Requisition [facility] Pathology & Laboratory Medicine - [facility] [address] [place] [address] Outr Resulting Lab, Provider Social History Tobacco [...] Date/Time Associated Diagnosis Comments PSA TOTAL, DIAGNOSTIC Routine 03/17/2022 7:55 EST documented in this encounter Results * PSA TOTAL, DIAGNOSTIC (03/17/2022 7:55 EST) PSA 1.3 <=4.5 ng/mL 03/17/2022 23:14 EST [facility] Blood VENOUS BLOOD / Unknown 03/17/2022 7:55 EST 03/17/2022 21:23 EST Narrative [facility] - 03/17/2022 23:14 EST NOTE: Serum PSA concentration should not be interpreted as absolute evidence for the presence or absence of malignant disease. Assayed on Siemens ADVIA Centaur XPT using chemiluminescent technology.??Values obtained by using different assay methods cannot be used interchangeably. Provider Outr Resulting Lab CHEMISTRY & BLOOD GAS ORDERABLES [facility] [address] [place] [address] documented in this encounter Visit Diagnoses Not on filedocumented in this encounter
--- OUTSIDE RECORDS SUMMARY | 2024-02-03 17:00 | XMS_ITS ---
[facility] [place] [address] Care Team Providers Care Cafeteria Counter Attendant Name Role Phone Juan Dempsey MD Primary Care Provider [phone] HemOnc Status:Enrolled (Active) Start date:02/26/2022 Enrollment date:02/26/2022 Enrollment reason:Enrolled - Currently Fills with Specialty Current support & services provided:Refill Management Linked medications:cabozantinib s-malate (Active) Linked problems:Renal cell carcinoma (Active) Continued Care and Services Coordination
--- OUTSIDE RECORDS SUMMARY | 2024-02-03 17:00 | XMS_ITS | Encounter Summary ---
Author Organization [facility] Address [address] [place] [address] Care Team Providers Care Flat Surfacer Name Role Phone Unavailable Primary Care Provider Unavailabl e Encounter Details Date Type Department Care Team (Late st Contact Info) Description 11/04/2021 Lab Requisition [facility] Pathology & Laboratory Medicine - [facility] [address] [place] [address] Outr Resulting Lab, Provider Social History Tobacco [...] Procedure Name Priority Date/Time Associated Diagnosis Comments IGG Routine 11/04/2021 9:45 EDT documented in this encounter Results * IGG (11/04/2021 9:45 EDT) IgG 845 610-1,616 mg/dL 11/05/2021 13:33 EDT [facility] Blood VENOUS BLOOD / Unknown 11/04/2021 9:45 EDT 11/04/2021 16:38 EDT Provider Outr Resulting Lab CHEMISTRY & BLOOD GAS ORDERABLES [facility] [address] [place] [address] documented in this encounter Visit Diagnoses Not on filedocumented in this encounter
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
--- OUTSIDE RECORDS SUMMARY | 2024-02-03 17:00 | XMS_ITS | Clinical Summary ---
Author Organization [facility] Address [address] [place] [address] Care Team Providers Care Industrial Economics Teacher Name Role Phone Unavailable Primary Care Provider Unavailabl e Social History Tobacco Use Types Packs/Day Years Used Date Smoking Tobacco: Never Assessed Interpersonal Safety Answer Date Record ed Physically Hurt Never 03/27/2020 Verbally Threaten Not on file 03/27/2020 Sex and Gender Information Value Date Recorded Sex Assigned at Not on file Gender Identity Not on file Sexual Orientation Not on file Plan of Treatment Health Maintenance Due Date Last Done Comments RSV Immunization ( o r 60+ Years) (1 - 1-dose 60+ series) 2015 Fall Risk Screening 02/18/2020 COVID-19 Vaccine ( season) 2023 Hepatitis C Screen Completed 08/12/2021 Procedures Procedure Name Priority Date/Time Associated Diagnosis Comments HEPATITIS C AB W REFLEX TO HCV RNA BY PCR Routine 08/12/2021 10:40 EDT from Last 3 Months or Most Recently Relevant to Health Maintenance Results * HEPATITIS C AB W REFLEX TO HCV RNA BY PCR (08/12/2021 10:40 EDT) Hep C Antibody Negative Negative 08/14/2021 9:[address] [facility] Blood VENOUS BLOOD / Unknown 08/12/2021 10:40 EDT 08/13/2021 16:44 EDT Provider Outr Resulting Lab CHEMISTRY & BLOOD GAS ORDERABLES [facility] [address] [place] [address] from Last 3 Months or Most Recently Relevant to Health Maintenance
--- OUTSIDE RECORDS SUMMARY | 2024-02-03 17:00 | XMS_ITS | Referral Summary ---
Author Organization [facility] Address [address] [place] [address] Care Team Providers Care Therapeutic Mentor Name Role Phone Unavailable Primary Care Provider [...] Orientation Not on file Plan of Treatment Not on file Procedures Procedure Name Priority Date/Time Associated Diagnosis Comments HEPATITIS C AB W REFLEX TO HCV RNA BY PCR Routine 08/12/2021 10:40 EDT from Last 3 Months or Most Recently Relevant to Health Maintenance Results * HEPATITIS C AB W REFLEX TO HCV RNA BY PCR (08/12/2021 10:40 EDT) Hep C Antibody Negative Negative 08/14/2021 9:44 EDT [facility] Blood VENOUS BLOOD / Unknown 08/12/2021 10:40 EDT 08/13/2021 16:44 EDT Provider Outr Resulting Lab CHEMISTRY & BLOOD GAS ORDERABLES [facility] [address] [place] [address] from Last 3 Months or Most Recently Relevant to Health Maintenance
--- OUTSIDE RECORDS SUMMARY | 2024-02-03 17:00 | XMS_ITS | Encounter Summary ---
Author Organization [facility] Address [address] [place] [address] Care Team Providers Care Solar Lab Technician Name Role Phone Unavailable Primary Care Provider Unavailabl e Encounter Details Date Type Department Care Team (Late st Contact Info) Description 08/12/2021 Lab Requisition [facility] Pathology & Laboratory Medicine - [facility] [address] [place] [address] Outr Resulting Lab, Provider Social History Tobacco [...] Procedure Name Priority Date/Time Associated Diagnosis Comments HIV 1/2 ANTIGEN AND ANTIBODY, 4TH GENERATION Routine 08/12/2021 10:40 EDT documented in this encounter Results * HIV 1/2 ANTIGEN AND ANTIBODY, 4TH GENERATION (08/12/2021 10:40 EDT) HIV 1 and 2 Antibody/p24 Antigen, 4th Generation Negative Negative 08/14/2021 10:28 EDT [facility] Comment:If acute HIV-1 infec tion is suspected in a high risk patient, submit plasma specimen for HIV-1 RNA quantitation test. Blood VENOUS BLOOD / Unknown 08/12/2021 10:40 EDT 08/13/2021 16:44 EDT Narrative [facility] - 08/14/2021 10:28 EDT Fourth Generation assay performed on the Siemens Centaur XPT. Provider Outr Resulting Lab IMMUNOLOGY A ND SEROLOGY ORDERABLES [facility] [address] [place] [address] documented in this encounter Visit Diagnoses Not on filedocumented in this encounter
--- OUTSIDE RECORDS SUMMARY | 2024-02-03 17:00 | XMS_ITS | Encounter Summary ---
Author Organization [facility] Address [facility] [place] [address] Care Team Providers Care Targeting Acquisition Officer Name Role Phone Lisbet Solitario MD Primary Care Provider [phone] Encounter Details Date Type Department Care Team (Late st Contact Info) Description 03/16/2017 Telephone Dermatology at [facility] [address] [place] [address] Norm Kelley MD [facility] [address] [place] [address] Social History Tobacco Use Types Packs/Day Years Used Date Smoking Tobacco: Never Smokeless Tobacco: Never Sex and Gender Information Value Date Recorded Sex Assigned at Male 05/23/2021 10:26 AM EST Gender Identity Not on file Sexual Orientation Not on file documented as of this encounter Miscellaneous Notes * Telephone Encounter - Galilea Russoie N - 03/16/2017 9:00 AM EST Patient called in regards to having a follow up scheduled. He was a little uneasy when I told him that in the last note it states to come in for a 2 month follow up. Patient would like to be seen sooner due to the cream not working. Please call patient back at your earliest convenience. Best numberto reach patient is [phone]. documented in this encounter Plan of Treatment Upcoming Encounters Date Type Department Care Team (Late st Contact Info) Description 02/16/2024 9:15 AM EDT Laboratory Appointment Lab at [facility] Hematology Oncology [address] [place], [place] [id number] 02/16/2024 10:20 AM EDT Hospital Encounter CT Scan at [place] [phone] Mitali Griffiths APRN [facility] [place] [address] 02/16/2024 1:30 PM EDT Office Visit Hematology and Oncology at [place] [phone] Albino Bartholomew MD [facility] [address] [place] [address] 04/17/2024 10:00 AM EST Office Visit Dermatology at [facility] [address] [place] [address] Oli Winter MD [address] [facility] [place] [place] [address] documented as of this encounter Visit Diagnoses Not on filedocumented in this encounter Care Teams Targeting Acquisition Officer Relationship Specialty Start Date End Date Lisbet Solitario MD [address] [place] [address] PCP - General Family Medicine 01/30/16 08/19/21 documented as of this encounter
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
--- OUTSIDE RECORDS SUMMARY | 2024-02-03 17:00 | XMS_ITS | Encounter Summary ---
Author Organization [facility] Address [address] [place] [address] Care Team Providers Care Timber Feller Name Role Phone Unavailable Primary Care Provider Unavailabl e Encounter Details Date Type Department Care Team (Late st Contact Info) Description 10/20/2021 Lab Requisition [facility] Pathology & Laboratory Medicine - [facility] [address] [place] [address] Outr Resulting Lab, Provider Social History Tobacco [...] Procedure Name Priority Date/Time Associated Diagnosis Comments LYME AB Routine 10/20/2021 17:56 EDT documented in this encounter Results * LYME AB (10/20/2021 17:56 EDT) Lyme Ab Negative Negative 10/22/2021 10:55 EDT [facility] Blood VENOUS BLOOD / Unknown 10/20/2021 17:56 EDT 10/21/2021 17:23 EDT Provider Outr Resulting Lab IMMUNOLOGY A ND SEROLOGY ORDERABLES [facility] [address] [place] [address] documented in this encounter Visit Diagnoses Not on filedocumented in this encounter
--- OUTSIDE RECORDS SUMMARY | 2024-02-03 17:00 | XMS_ITS | Encounter Summary ---
Author Organization [facility] Address [facility] [place] [address] Care Team Providers Care Cable Installer Repairer Name Role Phone Lisbet Solitario MD Primary Care Provider [phone] Reason for Visit * Reason Comments Skin Lesion recheck lesion on le ft ankle and left abdomen Encounter Details Date Type Department Care Team (Late st Contact Info) Description 04/14/2017 2:40 PM EST Office Visit Dermatology at [facility] [address] [place] [address] Norm Kelley MD [facility] [address] [place] [address] Seborrheic keratosis, inflamed; Telangiectasia Social History Tobacco Use Types Packs/Day Years Used Date Smoking Tobacco: Never Smokeless Tobacco: Never Sex and Gender Information Value Date Recorded Sex Assigned at Male 05/23/2021 10:26 AM EST Gender Identity Not on file Sexual Orientation Not on file documented as of this encounter Progress Notes * Norm Kelley - 04/14/2017 2:40 PM EST Images from the original note were not included. DERMATOLOGY - ESTABLISHED PATIENT FOLLOW-UP Date of service: 04/14/2017 Cristofer Tenorio : 1955, 62 y.o. Chief Complaint: Chief Complaint Patient presents with ??? Skin Lesion HPI: Cristofer Tenorio is a 62 y.o. male last seen by myself on 02/12/2017. Mr. Tenorio returns today for a recheck of a lesion on the left medial ankle and left abdomen. Patient states the lesion on the left ankle is better since his last visit. He has been applying topical Lidex cream two to three times daily. Itching stopped almost immediately. Patient states the lesion on the left abdomen is still present and still itching. 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 Medications: Current Outpatient Prescriptions Medication Sig Dispense Refill ??? fluocinonide (LIDEX) 0.05 % Cream Apply topically 2 times daily. Use for itchy spot on leg. 30 g 1 ??? loratadine (CLARITIN) 10 mg Tablet Take [...] and in no noticeable distress. - Skin: A focused examination of the left lower ankle and the left abdomen was normal with the exception of the findings listed below. Diagnosis/Skin findings/Assessment/Plan: 1. Telangiectasia with post inflammatory hyperemia- left medial ankle 5 mm telangiectatic macule. Resolving. - Lesion was probably a persistent insect bite that is now resolved. Residual telangiectasia are likely post-inflammatory +/- steroid-induced skin changes - Discontinue Lidex cream - Okay to restart Lidex on an intermittent basis if itching returns. - Will continue to monitor 2. Inflamed Seborrheic Keratosis- Left abdomen- inflamed waxy thin plaque. - Lesion did not resolve with previous LN2 treatment - Shared decision to treat with LN2 - If lesion does not resolve with this treatment, would consider biopsy/curettage for definitive treatment - No charge for LN2 today as lesion did not respond after previous treatment Procedure Note: Procedure: Destruction of lesion(s) with cryotherapy. Number: 1 Location: as above Discussed procedure and expectations including risks (including risk of hypopigmentation) and benefits. Verbal consent obtained. Frozen with LN2, 15-30 second thaw time, TWICE. There were no complications; the patient tolerated the procedure well. Post-procedure expectations and wound care were reviewed. Benign. Patient reassured. 3. Patient had concern about his recent bill. Copies of bills made to give to our certified orthotist practice manager. RTC: In January 2018 year for full skin exam; sooner if lesion on abdomen does not resolve. Instructed to call with questions or concerns. Note initiated by Amada Sanders CMA. Amada Sanders CMA - I am documenting this encounter acting as the scribe for and in the presence of Norm Kelley MD. I performed the above scribed service and agree with the accuracy of the documentation in this encounter. Reviewed and signed by Norm Kelley MD Resident in Dermatology [facility] Patient seen and evaluated with staff core shaper sides: Richard Torres MD Section of Dermatology [facility] * Richard Torres MD - 04/14/2017 2:40 PM EST I directly supervised Dr. Norm Kelley during this office visit. Dr. Kelley presented the history and physical exam to me. I then saw and examined this patient with Dr. Kelley. We reviewed the history and pertinent details and I confirmed the physical findings. I agree with the details of the history and physical exam as documented in Dr. Kelley's note. RICHARD TORRES MD Staff Physician documented in this encounter Plan of Treatment Upcoming Encounters Date Type Department Care Team (Late st Contact Info) Description 02/16/2024 9:15 AM EDT Laboratory Appointment Lab at [facility] Hematology Oncology [address] [place] [address] 02/16/2024 10:20 AM EDT Hospital [place] [address] Mitali Griffiths APRN [facility] DR [place] [address] 02/16/2024 1:30 PM EDT Office Visit Hematology and Oncology at [place] [phone] Albino Bartholomew MD [facility] DR [place] [address] 04/17/2024 10:00 AM EST Office Visit Dermatology at [facility] [address] [place] [address] Oli Winter MD [address] [facility] [place] [address] documented as of this encounter Visit Diagnoses Diagnosis Seborrheic keratosis, inflamed Inflamed seborrheic keratosis Telangiectasia Other and unspecified capillary diseases documented in this encounter Care Teams Cable Installer Repairer Relationship Specialty Start Date End Date Lisbet Solitario MD [address] [place] [address] PCP - General Family Medicine 01/30/16 08/19/21 documented as of this encounter
--- OUTSIDE RECORDS SUMMARY | 2024-02-03 17:00 | XMS_ITS | Encounter Summary ---
Author Organization [facility] Address [address] [place] [address] Care Team Providers Care Trust Operations Assistant Name Role Phone Unavailable Primary Care Provider Unavailabl e Encounter Details Date Type Department Care Team (Late st Contact Info) Description 03/30/2023 Lab Requisition [facility] Pathology & Laboratory Medicine - [facility] [address] [place] [address] Outr Resulting Lab, Provider Social History Tobacco [...] Associated Diagnosis Comments PSA TOTAL, DIAGNOSTIC Routine 03/30/2023 8:40 EST documented in this encounter Results * PSA TOTAL, DIAGNOSTIC (03/30/2023 8:40 EST) PSA 1.7 <=4.5 ng/mL 03/30/2023 22:36 EST [facility] Blood VENOUS BLOOD / Unknown 03/30/2023 8:40 EST 03/30/2023 21:49 EST Narrative [facility] - 03/30/2023 22:36 EST NOTE: Serum PSA concentration should not be interpreted as absolute evidence for the presence or absence of malignant disease. Assayed on Siemens ADVIA Centaur XPT using chemiluminescent technology.??Values obtained by using different assay methods cannot be used interchangeably. Provider Outr Resulting Lab CHEMISTRY & BLOOD GAS ORDERABLES [facility] [address] [place] [address] documented in this encounter Visit Diagnoses Not on filedocumented in this encounter
--- OUTSIDE RECORDS SUMMARY | 2024-02-03 17:00 | XMS_ITS | Encounter Summary ---
Author Organization [facility] Address [facility] [place] [address] Care Team Providers Care Line Driver Name Role Phone Meryl Solitario MD Primary Care Provider [phone] Reason for Visit * Reason Comments Skin Check * Consultation (Routine) - Specialty Diagnoses / Procedures Referred By Burak mcnair Referred To Contact Dermatology Diagnoses Skin check family history malignant melanoma Meryl Solitario MD [address] [place] [address] [facility] Dermatology [address] [place] [address] Referral ID Status Reason Start Date Expiration Date V isits Requested Visits Authorized [id number] Consult, Test & Treat Connection Center 01/30/2016 01/29/2017 1 1 Encounter Details Date Type Department Care Team (Late st Contact Info) Description 02/10/2016 10:45 AM EDT Office Visit Dermatology at [facility] [address] [place] [address] Ernst Goel MD [facility] [address] [place] [address] Sebaceous hyperplasia; SK (seborrheic keratosis); Multiple benign nevi; Rodríguez angioma Social History Tobacco Use Types Packs/Day Years Used Date Smoking Tobacco: Never Sex and Gender Information Value Date Recorded Sex Assigned at Male 05/23/2021 10:26 AM EST Gender Identity Not on file Sexual Orientation Not on file documented as of this encounter Progress Notes * Ernst Goel MD - 02/10/2016 10:45 AM EDT DERMATOLOGY CONSULT NOTE Date of service: 02/10/2016 Cristofer Tenorio : 1955 Provider: Ernst Goel MD Chief Complaint Patient presents with ??? Skin Check The patient is seen at the request of Meryl Solitario, who instructed the patient to be seen for evaluation of above SKIN HX: No personal history of Melanoma or NMSC No personal history of skin disease No pacemakers or defibrillators Family history: Older Brother from Melanoma at age 66 Brother: from pancreatic cancer HPI Cristofer Tenoiro is a 60 y.o. year old male, new to me and to dermatology. Here today for a full skin examination. He reports a spot on his left abdomen, present for 2 years, itching at times. He reports a red spot on his left upper abdomen, noticed 2 months ago, has bled at times. MEDS: Current Outpatient Prescriptions Medication Sig Dispense Refill ??? MULTIVITAMINS W-MINERALS/LUT (CENTRUM SILVER ORAL) ??? ibuprofen (ADVIL;MOTRIN) 200 mg tablet ??? CALCIUM ORAL No current facility-administered medications for this visit. ADR: Peanut ROS General: feeling well Skin: denies other skin complaints MEDICAL HISTORY: There is no problem list on file for this patient. FAMILY HISTORY: Older Brother from Melanoma at age 66 Mother had Lymphoma No known family history of skin disease SOCIAL HISTORY/OCCUPATION: Retired [employer], [employer] EX[employer] General: NAD, pleasant, cooperative Skin: Patient was asked to disrobe to the level of their comfort. A total body skin exam except for the genitalia was performed. This includes examination of the skin of the face, ears, neck, chest, axillae, left and right upper and lower extremities, hands, feet, abdomen, back, and buttocks. The genitalia, perineum, and perianal areas were not examined. Significant skin findings: A. Torso and extremities, including the left flank: Multiple 0.2-0.4cm bright red, well-demarcated papules B. Back: Multiple, medium-brown, evenly-pigmented macules and papules. All with regular pigment pattern on dermoscopy. No pigmented lesions suspicious for melanoma. C. Glabella and forehead: Scattered 0.2-0.3cm yellowish papules with central umbilication on the face. D. Torso and extremities: 0.4-0.6 cm pink-brown papules/plaque with waxy stuck on appearance. ASSESSMENT/PLAN: Family history of melanoma- discussed that familial melanoma may be also associated with pancreaticcancer (CKDN2A mutation) and that he may discuss pancreatic cancer screening with his PCP. A. Rodríguez Angiomas - Discussed benign nature of lesion and provided reassurance. No treatment necessary at this time. B. Benign appearing nevi, patient reassured - Patient instructed to return to clinic for re-evaluation of area if notes change, growth, bleeding, etc. - Advised to watch for anything new or changing. - Discussed the ABCDE's of melanoma and encouraged patient to perform self skin exams. - Informational brochure was provided. C. Sebaceous Hyperplasia - Discussed benign nature of lesion and provided reassurance. No treatment necessary at this time. D. Seborrheic keratoses - Discussed benign nature of lesion and provided reassurance. No treatment necessary at this time. - The nature of sun-induced photo-aging and skin cancers is discussed. Sun avoidance, protective clothing, and the use of 50-SPF broad spectrum sunscreens is advised. Observe closely for skin damage/changes, and call if such occurs. Follow up: Return to clinic in 1 year for full skin exam, or sooner if needed. A reminder letter will be sent to schedule. Patient instructed to call with questions or concerns. I am documenting this encounter acting as the scribe for and in the presence of Dr. Goel: JAVIER ESPINOZA LPN and Marla Mosley, Clinical Scribe I performed the above scribed service and agree with the accuracy of the documentation in this encounter. Ernts Goel MD Polishing Wheel Repairer of Dermatology, Department of Surgery [facility] cc: MERYL SOLITARIO MD documented in this encounter Plan of Treatment Upcoming Encounters Date Type Department Care Team (Late st Contact Info) Description 02/16/2024 9:15 AM EDT Laboratory Appointment Lab at [facility] Hematology Oncology [address] [place], [place] [id number] 02/16/2024 10:20 AM EDT Hospital Encounter CT Scan at [place] [phone] Mitali Griffiths APRN [facility] DR HEMATOLOGY [place] [address] 02/16/2024 1:30 PM EDT Office Visit Hematology and Oncology at [place] [phone] Albino Bartholomew MD [facility] DR [place]EMAT[place] [address] 04/17/2024 10:00 AM EST Office Visit Dermatology at [facility] [address] [place] [address] Oli Winter MD [address] [facility] [place] [address] documented as of this encounter Visit Diagnoses Diagnosis Sebaceous hyperplasia Other specified disease of sebaceous glands SK (seborrheic keratosis) Other seborrheic keratosis Multiple benign nevi Benign neoplasm of skin, site unspecified Rodríguez angioma Nevus, non-neoplastic documented in this encounter Care Teams Line Driver Relationship Specialty Start Date End Date Meryl Solitario MD [address] [place] [address] PCP - General Family Medicine 01/30/16 08/19/21 documented as of this encounter
--- OUTSIDE RECORDS SUMMARY | 2024-02-03 17:00 | XMS_ITS | Encounter Summary ---
Author Organization [facility] Address [address] [place] [address] Care Team Providers Care Coal Pulverizer Operator Name Role Phone Unavailable Primary Care Provider Unavailabl e Encounter Details Date Type Department Care Team (Late st Contact Info) Description 03/13/2021 Lab Requisition [facility] Pathology & Laboratory Medicine - [facility] [address] [place] [address] Outr Resulting Lab, Provider Social History Tobacco [...] Associated Diagnosis Comments PSA TOTAL, DIAGNOSTIC Routine 03/12/2021 9:35 EST documented in this encounter Results * PSA TOTAL, DIAGNOSTIC (03/12/2021 9:35 EST) PSA 0.9 0.0 - 4.5 ng/mL 03/13/2021 18:24 EST [facility] Blood VENOUS BLOOD / Unknown 03/12/2021 9:35 EST 03/13/2021 17:25 EST Narrative [facility] - 03/13/2021 18:24 EST NOTE: Serum PSA concentration should not be interpreted as absolute evidence for the presence or absence of malignant disease. Assayed on Siemens ADVIA Centaur XPT using chemiluminescent technology.??Values obtained by using different assay methods cannot be used interchangeably. Provider Outr Resulting Lab CHEMISTRY & BLOOD GAS ORDERABLES [facility] [address] [place] [address] documented in this encounter Visit Diagnoses Not on filedocumented in this encounter
== END 2024-02-03 16:55 | disposition home or self-care (01) ==
PROVIDERS: Emergency Provider Student in an Organized Health Care Education/Training Program; PCP Family Medicine
DX: K80.20 Calculus of gallbladder without cholecystitis without obstruction (principal); E78.5 Hyperlipidemia, unspecified; I10 Essential (primary) hypertension; Z85.528 Personal history of other malignant neoplasm of kidney; Z90.5 Acquired absence of kidney; Z86.718 Personal history of other venous thrombosis and embolism; Z79.01 Long term (current) use of anticoagulants
CPT/HCPCS: 36415; 80053; 83690; 99284; 76700; 83735; 85025

== ENCOUNTER 2024-03-02 03:00 | Outpatient (CLI) | payer MEDICARE, SELFPAY ==
[2024-03-02 11:11] LABS: Abs Immature Grans 0.03 10^3/uL (0.0-0.06); Absolute Basophil Count 0.08 10^3/uL (0.0-0.2); Absolute Eosinophil Count 0.22 10^3/uL (0.0-0.7); Absolute Monocyte Count 0.42 10^3/uL (0.1-0.8); Absolute Neutrophil Count 4.95 10^3/uL (1.2-6.7); Basophils % 1.1 %; Eosinophils % 3.1 %; HCT 41.6 % (40.0-50.0); HGB 13.8 g/dL (13.5-17.5); Immature Grans % 0.4 %; Lymphocytes % 18.6 %; MCH 30.4 pg (27.0-33.0); MCHC 33.2 % (32.0-36.0); MCV 92 fL (80-95); Neutrophils % 70.8 %; Platelet Count 195 10^3/uL (130-400); RBC 4.54 10^6/uL (4.36-5.78); RDW 15.4 % (11.8-14.1); RDW-SD 51.9 fL
[2024-03-02 11:39] LABS: ALT 32 U/L (16-63); AST 19 U/L (15-37); Albumin 3.4 g/dL (3.4-5.0); Alkaline Phosphatase 171 U/L (46-116); Anion Gap 7.5 mmol/L (3-11); BUN 31 mg/dL (7-18); Bilirubin, Total 0.58 mg/dL (0.2-1.0); CO2 29.5 mmol/L (21.0-32.0); CREATININE 1.7 mg/dL (0.70-1.30); Calcium 9.4 mg/dL (8.5-10.1); Chloride 107 mmol/L (98-107); FREE T4 1.15 ng/dL (0.76-1.46); Glucose 109 mg/dL (74-106); Potassium 3.6 mmol/L (3.5-5.1); Sodium 144 mmol/L (136-145)
== END 2024-03-02 03:01 | disposition home or self-care (01) ==
LOC: LBO 03:00
PROVIDERS: PCP Family Medicine; Visit Provider Internal Medicine
DX: Z79.899 Other long term (current) drug therapy (principal); R94.6 Abnormal results of thyroid function studies; C78.00 Secondary malignant neoplasm of unspecified lung; C64.9 Malignant neoplasm of unspecified kidney, except renal pelvis
CPT/HCPCS: 36415; 80053; 84439; 84443; 85025

== ENCOUNTER 2024-03-09 10:01 | Inpatient (IN) | payer MEDICARE, SELFPAY ==
[2024-03-09] VITALS (35 sets, daily range): BP systolic 128–166; BP diastolic 71–83; PULSE 60–74; RESP 16–20; TEMP 36.7–37.3; O2SAT 90–100
--- OUTSIDE RECORDS SUMMARY | 2024-03-09 10:12 | XMS_ITS | Encounter Summary ---
Author Organization [facility] Address [facility] [place] [address] Care Team Providers Care Senior Sharepoint Developer Name Role Phone Juan Dempsey MD Primary Care Provider [phone] Reason for Referral * Diagnostic Test (Routine) - Authorized Specialty Diagnoses / Procedures Referred By Contac t Referred To Contact Radiology Diagnoses Renal cell carcinoma of left kidney Metastatic renal cell carcinoma to lung, unspecified laterality Procedures CT Chest Abdomen Pelvis w Contrast (Generic) Albino Bartholomew MD [facility] [address] [place] [address] [facility] [place] [address] Referral ID Status Reason Start Date Expiration Date Visits Requested Visits Authorized [id number] Authorized Specialty Service Requested 08/16/2025 1 1 Reason for Visit * Reason Comments Follow-up Encounter Details Date Type Department Care Team (Late st Contact Info) Description 02/16/2024 1:30 PM EDT Office Visit Hematology [place] [address] Albino Bartholomew MD [facility] [address] [place] [address] Metastatic renal cell carcinoma to lung, unspecified laterality (Primary Dx); Abnormal thyroid function test; Renal cell carcinoma of left kidney; High risk medication use; Abnormal liver enzymes Social History Tobacco Use Types Packs/Day Years [...] Sign Reading Time Taken Comments Blood Pressure 140/80 02/16/2024 1:30 PM EDT Pulse 67 02/16/2024 1:30 PM EDT Temperature 36.5 ??C (97.7 ??F) 02/16/2024 1:30 PM ED T Respiratory Rate 18 02/16/2024 1:30 PM EDT Oxygen Saturation 97% 02/16/2024 1:30 PM EDT Inhaled Oxygen Concentration - - Weight 99 kg (218 lb 4.1 oz) 02/16/2024 1:30 PM EDT Height 174.8 cm (5' 8.82) 02/16/2024 1:30 PM ED T Body Mass Index 32.4 02/16/2024 1:30 PM EDT documented in this encounter Progress Notes * Albino Bartholomew MD - 02/16/2024 1:30 PM EDT Images from the original note were not included. Medical Oncology: Genitourinary [facility] [place] [address] [phone] HPI: Mr. Tenorio is a 68 y.o. [...] cell carcinoma and Cabometyx toxicity check. He developed abdominal pain and went to emergency room on February 02 where he was diagnosed with cholelithiasis, liver enzymes were very high. Cabometyx has been on hold since February 02. Pain is gone. Today he feels well. Denies fevers, chills, shortness of breath, cough, [...] Guided Biopsy Lung 02/04/2022 Rich Baldwin MD [facility] RAD CT SCAN HERNIA REPAIR Left inguinal PRO COLONOSCOPY, DIAGNOSTIC N/A 10/02/2021 COLONOSCOPY, DIAGNOSTIC performed by Jordyn Merino MD at [facility] ENDOSCOPY PRO CYSTOURETHROSCOPY N/A 06/23/2021 CYSTO, CYSTOURETHROSCOPY, DIAGNOSTIC (WRVU 2.23) performed by Jordan Hou MD at [facility] MAIN OR PRO REMV KIDNEY, RADICAL Left 06/23/2021 @NEPHRECTOMY, RADICAL W\REG LYMPHADENECTOMY &\OR VENA CAVA THROMBECTOMY (WRVU 23.81) performed by Jordan Hou MD at [facility] MAIN OR Family History Problem Relation Age [...] daughter; one step daughter as well 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 Take on an empty stomach. Call clinic before starting medication. Indications: renal cell carcinoma, Disp: 20tablet, Rfl: 5 triamcinolone (Kenalog) 0.1 % Cream, Apply topically [...] 3 wbc, hgb, hct plt Recent Labs 02/16/24 1149 02/09/24 1211 12/08/23 1156 WBC 6.97 7.59 8.63 HGB 14.0 14.6 14.6 HCT 43.6 44.9 45.3 PLATELET 208 190 202 Last 3 Lytes Recent Labs 02/16/24 1149 02/09/24 1211 12/08/23 1156 NA 140 137 141 K 4.5 4.5 4.0 CL 105 102 104 CO2 27 25 29 BUN 30* 35* 22* CREATININE 1.68* 2.59* 1.52* Last 3 LFTs Recent Labs 02/16/24 1149 02/09/24 1211 12/08/23 1156 10/08/23 1050 08/24/23 1001 07/07/23 0901 06/02/23 1212 04/28/23 1347 AST 25 137* 23 < > 22 < > 26 40* ALT 91* 559* 29 < > 27 < > 28 61* ALKPHOS 263* 536* 153* < > 147* < > 124 127 BILITOT 0.6 0.9 0.3 < > 0.4 < > 0.3 0.3 BILIDIR -- -- -- -- 0.1 -- 0.1 0.1 < [...] (pT): pT3a Regional Lymph Nodes (pN): pN1 IMAGIN02/09/24 CT CAP: IMPRESSION Multiple enlarging bilateral lobulated and serpiginous pulmonary metastases. Biopsy proven metastatic focus left lower lobe. Solitary new right middle lobe nodule. Remainder stable. Assessment: Raymundo Teonrio is a 68 y[address] Dr[address] 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 Pt prefers to get labs at [facility]. We'll send orders and I'll ask our surgical nurse to f/u on results. Advised pt to [...] Cabometyx with minimal side effects. Follows with forensic psychiatrist Dr. Pringle, with plans to taper him off budesonide. We will continue current regiment with Cabometyx 20 mg a day. We will see him back in 4-5 weeks with blood work. We will plan for restaging CT scan in -9 weeks 02/10/2023 Raymundo is in clinic for [...] January (4 months from the last one). 02/16/24 Raymundo went to emergency room on February 02 where he was diagnosed with gallstones and significant liver enzymes elevated. Cabometyx has been on hold since February 02. Restaging CT scan demonstrated increase in the size of lung nodules. Liver enzymes trending down, but still elevated. I do not know if elevation in liver enzymes due to gallstones versus Cabometyx versus combination of doxycycline and Cabometyx but regardless of cause he is CT scan demonstrated increase in the size of lung nodules consistent with progression of disease. We discussed treatment options including switching to third line therapy with lenvatinib 18 mg a day and everolimus 5 mg a day I would like to wait until his liver enzymes recovered completely. Tentatively I will plan to see him back in a short time interval in 7 weeks with blood work, CT chest abdomen pelvis to finalize theplan. Will repeat his CMP in 2 weeks locally # Mild hypokalemia: continues on potassium chloride 10meq daily #L LE DVT: continue Eliquis per PCP. 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 #Genetic testing: [facility] did not reveal any mutations #Itching: thought to be related to cabometyx, rash resolved, uses hydroxyzine prn. No longer using steroid cream PLAN: D/c cabometyx Repat CMP in 2 weeks locally Lab work and restaging CT c/a/p in 6 weeks Next visit with MD in 7 weeks The plan was discussed with the patient in details. All questions were answered to patient's satisfaction documented in this encounter Plan of Treatment Upcoming Encounters Date Type Department Care Team (Late st Contact Info) Description 03/29/2024 10:30 AM EST Laboratory Appointment Lab at [facility] Hematology Oncology [address] [place] [address] 03/29/2024 12:[address] [place] [address] Albino Bartholomew MD [facility] DR [place] [address] 04/05/2024 10:00 AM EST Office Visit Hematology [place] [address] Albino Bartholomew MD [facility] DR [place] [address] Scheduled Orders Name Type Priority Associated Diagnoses Orde r Schedule CBC (with Diff) Lab Routine Metastatic renal cell carcinoma to lung, unspecified laterality Every 6 weeks for 4 Occurrences starting 02/16/2024 until 02/15/2025 Comprehensive metabolic panel Lab Routine Metastatic 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, unspecified laterality Every 6 weeks for 4 Occurrences starting 02/16/2024 until 02/15/2025 TSH Lab Routine Abnormal thyroid function test High risk medication use Metastatic renal cell carcinoma to lung, unspecified laterality Every 6 weeks for 4 Occurrences starting 02/16/2024 until 02/15/2025 T4, free Lab Routine Abnormal thyroid function test High risk medication use Metastatic renal cell carcinoma to lung, unspecified laterality Every 6 weeks for 4 Occurrences starting 02/16/2024 until 02/15/2025 Comprehensive metabolic panel Non-fasting Lab Routine High risk medication use Metastatic renal cell carcinoma to lung, unspecified laterality Abnormal liver enzymes Expected: 03/01/2024 (Approximate), Expires: 02/15/2025 CT Chest Abdomen Pelvis w Contrast (Generic) Imaging Routine Renal cell carcinoma of left kidney Metastatic renal cell carcinoma to lung, unspecified laterality Expected: 03/29/2024 (Approximate), Expires: 09/28/2024 documented as of this encounter Goals Goal Patient Goal Type Associated Problems Recent Progress Patient-Stated? Author Patient's specific desired goal: Patient Facing Action Plan No Sharda Lee, [facility] Note: Remain 95% or more adherent to oral chemotherapy over the next year as measured by refill history documented as of this encounter Visit Diagnoses Diagnosis Metastatic renal cell carcinoma to lung, unspecified laterality- Primary Abnormal thyroid function test Nonspecific abnormal results of thyroid function study Renal cell carcinoma of left kidney High risk medication use Encounter for long-term (current) use of other medications Abnormal liver enzymes Other nonspecific abnormal serum enzyme levels documented in this encounter Care Teams Senior Sharepoint Developer Relationship Specialty Start Date End Date Juan Dempsey MD [address] [place] [address] PCP - General Emergency Medicine 08/20/21 documented as of this encounter
--- OUTSIDE RECORDS SUMMARY | 2024-03-09 10:12 | XMS_ITS | Encounter Summary ---
Author Organization [facility] Address [facility] [place] [address] Care Team Providers Care 2 Year Olds Preschool Teacher Name Role Phone Juan Dempsey MD Primary Care Provider [phone] Encounter Details Date Type Department Care Team (Latest Contact Info) Description 12/10/2023 Specialty [place] [phone] Sharda Lee, [facility] Refill Coordination - 28 day [...] this encounter Progress Notes * Sharda Lee [facility] - 12/10/2023 4:06 PM EDT Clinical Management Plan: Refill Specialty Pharmacy Consultation; Sharda Lee [facility] Comprehensive Medication Management (CMM) Mr. Cristofer Tenorio [...] Standard Peanut Medication Reconciliation Discrepancies (compared to [facility] med list) No Review Flowsheet 12/10/2023 [...] 10:30 AM EST Laboratory Appointment Lab at [facility] Hematology Oncology [address] [place] [address] 03/29/2024 12:[address] [place] [place] [phone] Albino Bartholomew MD [facility] DR HEMATOLOGY [place] [address] 04/05/2024 10:00 AM EST Office Visit [place] [address] Albino Bartholomew MD [facility] DR HEMATOLOGY [place] [address] documented as of this encounter Goals Goal Patient Goal Type Associated Problems Recent Progress Patient-Stated? Author Patient's specific desired goal: Patient Facing Action Plan No Sharda Lee RPH Note: Remain 95% or more adherent to oral chemotherapy over the next year as measured by refill history documented as of this encounter Visit Diagnoses Not on filedocumented in this encounter Care Teams 2 Year Olds Preschool Teacher Relationship Specialty Start Date End Date Juan Dempsey MD [address] [place] [address] PCP - General Emergency Medicine 08/20/21 documented as of this encounter
--- OUTSIDE RECORDS SUMMARY | 2024-03-09 10:12 | XMS_ITS | Encounter Summary ---
Author Organization [facility] Address [facility] [place] [address] Care Team Providers Care Mixing House Operator Name Role Phone Juan Dempsey MD Primary Care Provider Encounter Details Date Type Department Care Team (Latest Contact Info) Description 02/29/2024 Travel Social History Tobacco Use Types Packs/Day [...] 10:30 AM EST Laboratory Appointment Lab at [facility] Hematology Oncology [address] [place] [address] 03/29/2024 12:[address] [place] [phone] Albino Bartholomew MD [facility] [place] [address] 04/05/2024 10:00 AM EST Office Visit [place]ology [place] [address] Albino Bartholomew MD [facility] [place] [address] documented as of this encounter Goals Goal Patient Goal Type Associated Problems Recent Progress Patient-Stated? Author Patient's specific desired goal: Patient Facing Action Plan No Sharda Lee, [facility] Note: Remain 95% or more adherent to oral chemotherapy over the next year as measured by refill history documented as of this encounter Visit Diagnoses Not on filedocumented in this encounter Care Teams Mixing House Operator Relationship Specialty Start Date End Date Juan Dempsey MD [address] [place] [address] PCP - General Emergency Medicine 08/20/21 documented as of this encounter
--- OUTSIDE RECORDS SUMMARY | 2024-03-09 10:12 | XMS_ITS | Encounter Summary ---
Author Organization [facility] Address [facility] [place] [address] Care Team Providers Care Embedded Software Manager Name Role Phone Juan Dempsey MD Primary Care Provider [phone] Encounter Details Date Type Department Care Team (Late st Contact Info) Description 01/31/[address] [place] [address] Suzy Suarez LPN Social History [...] 10:30 AM EST Laboratory Appointment Lab at [facility] Hematology Oncology [address] [place] [address] 03/29/2024 12:[address] [place] [phone] [facility] HEMATOLOGY [place] [address] 04/05/2024 10:00 AM EST Office Visit [place]ology [place] [phone] [facility] [address] HEMATOLOGY [place] [address] documented as of this encounter Goals Goal Patient Goal Type Associated Problems Recent Progress Patient-Stated? Author Patient's specific desired goal: Patient Facing Action Plan No Sharda Lee, [facility] Note: Remain 95% or more adherent to oral chemotherapy over the next year as measured by refill history documented as of this encounter Visit Diagnoses Not on filedocumented in this encounter Care Teams Embedded Software Manager Relationship Specialty Start Date End Date Juan Dempsey MD [address] [place] [address] PCP - General Emergency Medicine 08/20/21 documented as of this encounter
--- OUTSIDE RECORDS SUMMARY | 2024-03-09 10:12 | XMS_ITS | Encounter Summary ---
Author Organization [facility] Address [facility] [place] [address] Care Team Providers Care Rn Endoscopy Name Role Phone Juan Dempsey MD Primary Care Provider [phone] Encounter Details Date Type Department Care Team (Late st Contact Info) Description 02/22/2024 Specialty [place] [phone] Reshma Gar, [facility] Social History Tobacco Use Types Packs/Day [...] this encounter Progress Notes * Reshma Gar [facility] - 02/22/2024 12:53 PM EDT Clinical Management Plan: Discontinuation of Therapy Specialty Pharmacy Consultation; Reshma Gar [facility] Comprehensive Medication Management (CMM) Cristofer Tenorio [address] [place] [phone] Telephone Information: Work Phone Not on file. Is the patient transferring services to a different Specialty Pharmacy, discontinuing the medication, or modifying current Specialty services? Discontinuing Medication Medication: Cabometyx Reason for discontinuation or transfer of services: Therapy discontinued Approximate date of discontinuation, modification, or transfer of services: 02/22/24 Patient's response to therapy: elevated liver enzymes Summary of services provided by - Specialty: Benefits investigation, medication access assistance, initial clinical assessment, follow up clinical assessment(s), refill management, care plan reviewprior to dispensing, and 23/11 access to an on-call specialty pharmacist Summary of on-going needs: None at this time Referral for additional services (if applicable): n/a Is patient aware of referral? N/a Instructions provided to patient about discharge/transfer: yes - maggy Cleveland a voicemail letting him know of unenrollment and that he can call us back with anyquestions about medication disposal Provider aware of discontinuation or transfer: Yes- per OV note Patient understands no changes to current drug regimen were made at the appointment and that [facility] (summary located at top of note) for provider review and follow up. Of note, if transferring to another specialty pharmacy, a copy of patient's medication profile was offered to accepting pharmacy. Reshma Gar RPH 02/22/24 12:54 PM documented in this encounter Plan of Treatment Upcoming Encounters Date Type Department Care Team (Late st Contact Info) Description 03/29/2024 10:30 AM EST Laboratory Appointment Lab at [facility] Hematology Oncology [address] [place] [address] 03/29/2024 12:[address] [place] [place] [phone] Albino Bartholomew MD [facility] DR HEMATOLOGY [place] [address] 04/05/2024 10:00 AM EST Office Visit [place]ology [place] [address] Albino Bartholomew MD [facility] [address] HEMATOLOGY [place] [address] documented as of this encounter Goals Goal Patient Goal Type Associated Problems Recent Progress Patient-Stated? Author Patient's specific desired goal: Patient Facing Action Plan No Sharda Lee [facility] Note: Remain 95% or more adherent to oral chemotherapy over the next year as measured by refill history documented as of this encounter Visit Diagnoses Not on filedocumented in this encounter Care Teams Rn Endoscopy Relationship Specialty Start Date End Date Juan Dempsey MD [address] [place] [address] PCP - General Emergency Medicine 08/20/21 documented as of this encounter
--- OUTSIDE RECORDS SUMMARY | 2024-03-09 10:12 | XMS_ITS | Encounter Summary ---
Author Organization [facility] [place] [address] Care Team Providers Care Director Of Corporate Sales Name Role Phone Juan Dempsey MD Primary Care Provider [phone] Encounter Details Date Type Department Care Team (Latest Contact Info) Description 02/16/2024 12:15 PM EDT Laboratory Appointment Lab at [facility] [place]ematology Oncology [address] [place] [id number] Metastatic renal cell carcinoma to lung, unspecified laterality; High risk medication use; Abnormal thyroid function test; Renal cell carcinoma of left kidney Social [...] 10:30 AM EST Laboratory Appointment Lab at [facility] [place]ematology Oncology [address] [place] [address] 03/29/2024 12:[address] [place] [phone] Albino Bartholomew MD [facility] DR HEMATOLOGY [place] [address] 04/05/2024 10:00 AM EST Office Visit Hematology [place] [address] Albino Bartholomew MD [facility] DR HEMATOLOGY [place] [address] documented as of this encounter Goals Goal Patient Goal Type Associated Problems Recent Progress Patient-Stated? Author Patient's specific desired goal: Patient Facing Action Plan Sharda Lozano, [facility] Note: Remain 95% or more adherent to oral chemotherapy over the next year as measured by refill history documented as of this encounter Procedures Procedure Name Priority Date/Time Associated Diagnosis Comments CBC (WITH DIFF) Routine 02/16/2024 11:49 AM EDT Metastatic renal cell carcinoma to lung, unspecified laterality TSH Routine 02/16/2024 11:49 AM EDT Metastatic renal cell carcinoma to lung, unspecified laterality High risk medication use Abnormal thyroid function test T4, FREE Routine 02/16/2024 11:49 AM EDT Metastatic renal cell carcinoma to lung, unspecified laterality High risk medication use Abnormal thyroid function test COMPREHENSIVE METABOLIC PANEL Routine 02/16/2024 11:49 AM EDT Metastatic renal cell carcinoma to lung, unspecified laterality documented in this encounter Results * T4, free (02/16/2024 11:49 AM EDT) Free T4 1.53 0.93 - 1.70 ng/dL 02/16/2024 1:30 PM EDT [facility] Blood VENOUS BLOOD SPECIMEN / Unknown Venipuncture / Unknown 02/16/2024 11:49 AM EDT 02/16/2024 11:49 AM EDT Albino Bartholomew MD CHEMISTRY ORDERABLES Performing Organization Address City/[facility]/ZIP Co de Phone Number [facility] [place] [address] * TSH (02/16/2024 11:49 AM EDT) Thyroid Stimulating Hormone 4.13 0.27 - 4.20 mcIU/mL 02/16/2024 1:30 PM EDT [facility] Blood VENOUS BLOOD SPECIMEN / Unknown Venipuncture / Unknown 02/16/2024 11:49 AM EDT 02/16/2024 11:49 AM EDT Albino Bartholomew MD CHEMISTRY ORDERABLES [facility] [place] [address] * (ABNORMAL) Comprehensive metabolic panel (02/16/2024 11:49 AM EDT) Glucose 97 65 - 199 mg/dL 02/16/2024 1:30 PM [facility] Comment:Glucose Concentratio n >=200 mg/dL plus symptoms is consistent with Diabetes Mellitus. Blood Urea Nitrogen 30(H) 10 - 20 mg/dL 02/16/2024 1:30 PM T [facility] Creatinine 1.68(H) 0.80 - 1.50 mg/dL 02/16/2024 1:30 PM [facility] Sodium 140 135 - 145 mMol/L 02/16/2024 1:30 PM [facility] Potassium 4.5 3.5 - 5.0 mMol/L 02/16/2024 1:30 PM [facility] Chloride 105 98 - 107 mMol/L 02/16/2024 1:30 PM [facility] Carbon Dioxide 27 22 - 31 mMol/L 02/16/2024 1:30 PM [facility] Anion Gap 8 5 - 15 mMol/L 02/16/2024 1:30 PM [facility] Calcium 9.0 8.5 - 10.5 mg/dL 02/16/2024 1:30 PM [facility] Protein, Total 7.0 6.1 - 8.0 g/dL 02/16/2024 1:30 PM [facility] Albumin 4.0 3.2 - 5.2 g/dL 02/16/2024 1:30 PM [facility] Aspartate Aminotransferase 25 <=39 unit/L 02/16/2024 1:30 PM [facility] Alanine Aminotransferase 91(H) 0 - 55 unit/L 02/16/2024 1:30 PM [facility] Alkaline Phosphatase 263(H) 40 - 130 unit/L 02/16/2024 1:30 PM [facility] Bilirubin, Total 0.6 <=1.3 mg/dL 02/16/2024 1:30 PM EDT [facility] Est Glomerular Filtration Rate - Male 44 mL/min/1. 73 m?? 02/16/2024 1:30 PM EDT [facility] Comment: This patient's [...] Calculator [employer] Fasting Status No 02/16/2024 1:30 PM EDT [facility] Blood VENOUS BLOOD SPECIMEN / Unknown Venipuncture / Unknown 02/16/2024 11:49 AM EDT 02/16/2024 11:49 AM EDT Albino Bartholomew MD CHEMISTRY ORDERABLES [facility] [place] [address] * (ABNORMAL) CBC (with Diff) (02/16/2024 11:49 AM EDT) White Blood Cell 6.97 4.00 - 9.50 x10(3)/mc L 02/16/2024 12:11 PM EDT [facility] Red Blood Cell 4.73 4.58 - 5.54 x10(6)/mc L 02/16/2024 12:11 PM EDT [facility] Hemoglobin 14.0 13.7 - 16.5 g/dL 02/16/2024 12:11 PM EDT [facility] Hematocrit 43.6 40.5 - 48.5 % 02/16/2024 12:11 PM [facility] Mean Cell Volume 92.2 82.9 - 93.1 fL 02/16/2024 12:11 PM [facility] Mean Cell Hemoglobin 29.6 27.5 - 32.1 pg 02/16/2024 12:11 PM [facility] Mean Cell Hemoglobin Concentration 32.1 32.0 - 35.7 g/dL 02/16/2024 12:11 PM [facility] Platelet 208 145 - 357 x10(3)/mc L 02/16/2024 12:11 PM [facility] Mean Platelet Volume 9.9 7.6 - 12.9 fL 02/16/2024 12:11 PM [facility] RDW Standard Deviation 53.2(H) 36.0 - 45.0 fL 02/16/2024 12:11 PM [facility] RDW coefficient of variation 15.6(H) 11.4 - 13.8 % 02/16/2024 12:11 PM [facility] NRBC% auto 0.0 % 02/16/2024 12:11 PM [facility] NRBC Absolute <0.01 <0.01 x10(3)/mc L 02/16/2024 12:11 PM [facility] Neutrophil % 67.8 % 02/16/2024 12:11 PM [facility] Neutrophil Absolute (ANC) - Automated 4.72 1.70 - 6.10 x10(3)/mc L 02/16/2024 12:11 PM [facility] Lymph % 22.2 % 02/16/2024 12:11 PM [facility] Lymph Absolute 1.55 0.90 - 3.20 x10(3)/mc L 02/16/2024 12:11 PM [facility] Monocyte % 5.6 % 02/16/2024 12:11 PM [facility] Monocyte Absolute 0.39 0.30 - 0.90 x10(3)/mc L 02/16/2024 12:11 PM EDT [facility] Eos % 3.0 % 02/16/2024 12:11 PM EDT [facility] Eos Absolute 0.21 0.00 - 0.40 x10(3)/mc L 02/16/2024 12:11 PM EDT [facility] Basophil % 1.3 % 02/16/2024 12:11 PM EDT [facility] Baso Absolute 0.09 0.00 - 0.10 x10(3)/mc L 02/16/2024 12:11 PM EDT [facility] Immature Gran % 0.1 % 12:11 PM EDT [facility] Immature Gran Absolute <0.04 0.00 - 0.04 x10(3)/mc L 02/16/2024 12:11 PM EDT [facility] Blood VENOUS BLOOD SPECIMEN / Unknown Venipuncture / Unknown 02/16/2024 11:49 AM EDT 02/16/2024 11:49 AM EDT Albino Bartholomew MD HEMATOLOGY ORDERABLE S Performing Organization Address City/State/[facility] Co de Phone Number [facility] [place] [address] documented in this encounter Visit Diagnoses Diagnosis Metastatic renal cell carcinoma to lung, unspecified laterality High risk medication use Encounter for long-term (current) use of other medications Abnormal thyroid function test Nonspecific abnormal results of thyroid function study Renal cell carcinoma of left kidney documented in this encounter Care Teams Director Of Corporate Sales Relationship Specialty Start Date End Date Juan Dempsey MD [address] [place] [address] PCP - General Emergency Medicine 08/20/21 documented as of this encounter
--- OUTSIDE RECORDS SUMMARY | 2024-03-09 10:12 | XMS_ITS | Encounter Summary ---
Author Organization [facility] Address [facility] [place] [address] Care Team Providers Care Hook Puller Name Role Phone Juan Dempsey MD Primary Care Provider [phone] Encounter Details Date Type Department Care Team (Late st Contact Info) Description 02/10/2024 Orders Only Hematology [place] [phone] Albino Bartholomew MD [facility] [address] [place] [address] Renal cell carcinoma of left kidney; High risk medication use; Abnormal thyroid function [...] 10:30 AM EST Laboratory Appointment Lab [place] [facility] [place] [address] [place] [address] 03/29/2024 12:[address] [place] [address] Albino Bartholomew MD [facility] [address] [place] [address] 04/05/2024 10:00 AM EST Office Visit Hematology [place] [address] Albino Bartholomew MD [facility] DR [place] [address] documented as of this encounter Goals Goal Patient Goal Type Associated Problems Recent Progress Patient-Stated? Author Patient's specific desired goal: Patient Facing Action Plan No Sharda Lee, [facility] Note: Remain 95% or more adherent to oral chemotherapy over the next year as measured by refill history documented as of this encounter Visit Diagnoses Diagnosis Renal cell carcinoma of left kidney High risk medication use Encounter for long-term (current) use of other medications Abnormal thyroid function test Nonspecific abnormal results of thyroid function study documented in this encounter Care Teams Hook Puller Relationship Specialty Start Date End Date Juan Dempsey MD [address] [place] [address] PCP - General Emergency Medicine 08/20/21 documented as of this encounter
--- OUTSIDE RECORDS SUMMARY | 2024-03-09 10:12 | XMS_ITS | Encounter Summary ---
Author Organization [facility] Address [facility] [place] [address] Care Team Providers Care Institutional Nutrition Consultant Name Role Phone Juan Dempsey MD Primary Care Provider [phone] Encounter Details Date Type Department Care Team (Late st Contact Info) Description 03/07/2024 11:30 AM EST Office [place] [phone] Ana Pringle MD [facility] [place] [address] Drug induced liver disease Social History Tobacco [...] Sign Reading Time Taken Comments Blood Pressure 126/60 03/07/2024 11:15 AM EST Pulse 57 03/07/2024 11:15 AM EST Temperature - - Respiratory Rate 18 03/07/2024 11:1 5 AM EST Oxygen Saturation 100% 03/07/2024 11: 15 AM EST Inhaled Oxygen Concentration - - Weight 100.2 kg (220 lb 12.8 oz) 2023 11:15 AM EST Height 179.7 cm (5' 10.75) 03/07/2024 11:15 AM EST Body Mass Index 31.01 03/07/2024 11:15 AM EST documented in this encounter Progress Notes * Ana Pringle MD - 03/07/2024 11:30 AM EST Images from the original note were not included. Gastroenterology and Hepatology Follow Up Note Patient: Cristofer Tenorio : 1955 Provider: Ana Pringle MD Problem List: #DILI AIH Radical nephrectomy for RCC on June 20 He received one dose of adjuvant pembrolizumab on August 07. Next visit on 08/28/19 he had transiminitis grade 4, pembro was d/adithya and atorvastatin was also stopped Treatment Hx: -left radical nephrectomy 06/2021 -08/07/21 [...] 5 days on and 2 days off 08/27/21 Total Bilirubin: 0.6 (Reference Range & [...] weekly CMPs AST/ALT nomalized 10/01/21 and 10/08/21 Been on 60 mg daily of pred [...] hadCOVID and on antifungal at the time) - Budesonide tapered off and stopped 03/01/2023 Latest Reference Range & Units 08/07/21 09:11 [...] 111 ! (E) 58(E) 45 157 (H) Latest Reference Range & [...] 80 (H) (E) 28 21 35 (E) [facility] Reference Range & Units 03/18/22 11:44 04/01/22 [...] (H) 266 (E) 236 (E) 160 (H) [facility] Reference Range & Units 12/08/23 11:56 02/09/24 12:11 02/16/24 11:49 Bilirubin, Total <=1.3 mg/dL 0.3 0.9 0.6 Alkaline Phosphatase 40 - 130 unit/L 153 (H) 536 (H) 263 (H) Aspartate Aminotransferase <=39 unit/L 23 137 (H) 25 Alanine Aminotransferase 0 - 55 unit/L 29 559 (H) 91 (H) MRI 08/12/2022: Liver: Normal size and signal intensity. No lesions. Bile ducts: Nondilated. Gallbladder: No gallstones. Normal caliber wall. Pancreas: Stable 1.2 cm cystic lesion in the pancreatic body without suspicious features. Additional smaller cystic lesions are also unchanged. Spleen: Normal. U/S 02/03/2024: CT non contrast 02/09/2024: Abdomen/pelvis: Liver: Normal size and contour. Bile ducts: Nondilated. Gallbladder: No calcified gallstones. Normal caliber wall. Pancreas: Normal contour Spleen: Normal size All parties consented to the use of KETTY to document this visit. Subjective History of Present Illness The patient presents for evaluation of elevated liver enzymes. He is accompanied by his He reports that his liver enzymes were elevated on 02/09/2024, but have since normalized. Prior to this, he had consulted Dr. Winter for a severe acne outbreak on his scalp at the end of 01/2024. Dr. Winter prescribed doxycycline, but he was hesitant to start the medication until he had consulted with oncology and hepatology. After receiving confirmation from both parties, he began the doxy cycline treatment. However, after 3.5 days, he experienced stomach pain. On 02/03/2024, he visited the emergency room due to LUQ abdominal pain He underwent extensive testing in the emergency room, including an ultrasound and CT scan, which confirmed the presence of gallstones. He was informed thatthe elevated liver enzymes were likely due to a drug interaction rather than the gallstones. He has been on Cabometyx for some time and has experienced frequent stomach pain over the past 6 months, which he attributes to the medication. The pain would subside after stopping the medication for 4 days, but it never reached the intensity that led him to the emergency room. The pain was alwayslocalized to the same area on the left side. He is currently not taking any medications and is scheduled for another CT scan on 03/29/2024. He has an appointment with Dr. Bartholomew on 04/05/2024. He was given two medication options, Lenvatinib and everolimus, and was advised to have another CT scan before starting either medication. He is concerned about the growth of his lung nodes, which were previously not a cause for concern. He is considering the side effects of both medications and is leaning towards everolimus. Current Outpatient Medications Medication Sig Dispense Refill levothyroxine (Synthroid) 75 mcg tablet TAKE ONE TABLET BY MOUTH EVERY DAY 30 tablet 5 doxycycline (Vibramycin) 100 mg capsule Take 1 capsule by mouth 2 times daily. 90 capsule 3 clindamycin (CLEOCIN T) 1 % Lotion Apply thin layer to affected areas on the scalp and neck twice daily 60 mL 11 potassium chloride ER (Klor-Con M) 10 [...] as needed for Itching. 30 tablet 12 chlorthalidone (Hygroten) 25 mg Tablet Take 25 [...] No current facility-administered medications for this visit. Objective Blood pressure 126/60, pulse 57, resp. rate 18, height 179.7 cm (5' 10.75), weight 100.2 kg (220 lb 12.8 oz), SpO2 100%. Body mass index is 31.01 kg/m??. Physical Exam No jaundice, NAD Results See problem list Assessment & Plan 1. DILI His liver enzymes were significantly elevated on 02/09/2024, with an ALT level of 500. However, recent tests indicate a return to normal levels. The alkaline phosphatase, which was also 500, has decreased to 171. An MRI from 08/2022 showed no gallstones, normal gallbladder wall, and non-dilated bile ducts. An ultrasound from 02/03/2024 revealed gallstones, but no thickening or inflammation of thegallbladder wall, and non-dilated bile ducts. A CT scan confirmed the absence of calcified gallstones, inflammation around the gallbladder, and dilated bile ducts. The possibility of a gallstone causing a blockage and subsequent increase in liver enzymes cannot be ruled out. However, the timing of these events suggests doxycycline as a more likely cause. The elevated liver enzymes and severe acute presentation are likely due to doxycycline. His labs are currently normal. Both Lenvatinib and everolimus are safe from a liver perspective. Ana Pringle MD Section of Gastroenterology & Hepatology [address] [place], [place] [id number] Time spent reviewing records prior to this encounter: 5 minutes Time spent during encounter with patient including counselin minutes Time spent documenting encounter after office visit: 5 minutes Approximate total time devoted to this single encounter on the day of the encounter: 45 minutes Cc: Juan Dempsey MD documented in this encounter Plan of Treatment Upcoming Encounters Date Type Department Care Team (Late st Contact Info) Description 03/29/2024 10:30 AM EST Laboratory Appointment Lab at [facility] Hematology Oncology [address] [place] [address] 03/29/2024 12:[address] [place] [address] Albino Bartholomew MD [facility] DR H[place]OLOGY [place] [address] 04/05/2024 10:00 AM EST Office Visit Hematology [place] [address] Albino Bartholomew MD [facility] DR [place]Y [place] [address] documented as of this encounter Goals Goal Patient Goal Type Associated Problems Recent Progress Patient-Stated? Author Patient's specific desired goal: Patient Facing Action Plan Sharda Lozano, [facility] Note: Remain 95% or more adherent to oral chemotherapy over the next year as measured by refill history documented as of this encounter Visit Diagnoses Diagnosis Drug induced liver disease documented in this encounter Care Teams Institutional Nutrition Consultant Relationship Specialty Start Date End Date Juan Dempsey MD [address] [place] [address] PCP - General Emergency Medicine 08/20/21 documented as of this encounter
--- OUTSIDE RECORDS SUMMARY | 2024-03-09 10:12 | XMS_ITS | Encounter Summary ---
Author Organization [facility] [place] [address] Care Team Providers Care Panel Builder Name Role Phone Juan Dempsey MD Primary Care Provider [phone] Reason for Visit * Reason Comments Medication Refill Encounter Details Date Type Department Care Team (Late st Contact Info) Description 03/06/2024 Refill Hematology [place] [address] Kelin Carlos, [address] HEMATOLOGY AND ONCOLOGY [place], [place] [phone] Social History Tobacco Use Types Packs/Day Years [...] 10:30 AM EST Laboratory Appointment Lab [place] [facility] [place] [address] [place] [address] 03/29/2024 12:[address] [place] [phone] Albino Bartholomew MD [facility] [address] [place] [address] 04/05/2024 10:00 AM EST Office Visit Hematology [place] [address] Albino Bartholomew MD [facility] [address] [place] [address] documented as of this encounter Goals Goal Patient Goal Type Associated Problems Recent Progress Patient-Stated? Author Patient's specific desired goal: Patient Facing Action Plan No Sharda Lee, [facility] Note: Remain 95% or more adherent to oral chemotherapy over the next year as measured by refill history documented as of this encounter Visit Diagnoses Not on filedocumented in this encounter Care Teams Panel Builder Relationship Specialty Start Date End Date Juan Dempsey MD [address] [place] [id number] PCP - General Emergency Medicine 08/20/21 documented as of this encounter
--- OUTSIDE RECORDS SUMMARY | 2024-03-09 10:12 | XMS_ITS | Encounter Summary ---
Author Organization [facility]ly [facility] Address [facility] [place] [address] Care Team Providers Care Lease Buyer Name Role Phone Juan Dempsey MD Primary Care Provider [phone] Reason for Visit * Reason Comments Follow-up Encounter Details Date Type Department Care Team (Late st Contact Info) Description 12/08/2023 1:30 PM EDT Office Visit [place] [address] Mitali Griffiths APRN [facility] [address] HEMATOLOGY [place] [address] Renal cell carcinoma of left kidney; Medication [...] note were not included. Medical Oncology: Genitourinary [facility] [place] [address] [phone] HPI: Mr. Tenorio is a 68 y.o. [...] skin. 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 He notices more leg [...] Guided Biopsy Lung 02/04/2022 Rich Baldwin MD [facility] RAD CT SCAN HERNIA REPAIR Left inguinal PRO COLONOSCOPY, DIAGNOSTIC N/A 10/02/2021 COLONOSCOPY, DIAGNOSTIC performed by Jordyn Merino MD at [facility] ENDOSCOPY PRO CYSTOURETHROSCOPY N/A 06/23/2021 CYSTO, CYSTOURETHROSCOPY, DIAGNOSTIC (WRVU 2.23) performed by Jordan Hou MD at [facility] MAIN OR PRO REMV KIDNEY, RADICAL Left 06/23/2021 @NEPHRECTOMY, RADICAL W\REG LYMPHADENECTOMY &\OR VENA CAVA THROMBECTOMY (WRVU 23.81) performed by Jordan Hou MD at [facility] MAIN OR Family History Problem Relation [...] one step daughter as well 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 Advised pt to [...] f/u abdominal MRI on 11/[address] oHu. Depending on outcome of imaging (if concerning [...] Cabometyx with minimal side effects. Follows with garment steamer Dr. Pringle, with plans to taper him [...] with any additional questions or concerns. Mitali Griffiths MSN, CUSTOMER EXPERIENCE CONSULTANT Medical Oncology Pager [phone] [facility] documented in this encounter Plan of Treatment Upcoming Encounters Date Type Department Care Team (Late st Contact Info) Description 03/29/2024 10:30 AM EST Laboratory Appointment Lab at [facility] [place] [address] [place] [address] 03/29/2024 12:[address] [place] [place] [address] Albino Bartholomew MD [facility] [address] HEMATOLOGY [place] [address] 04/05/2024 10:00 AM EST Office Visit [place]ology [place] [address] Albino Bartholomew MD [facility] DR HEMATOLOGY [place] [address] documented as of this encounter Goals Goal Patient Goal Type Associated Problems Recent Progress Patient-Stated? Author Patient's specific desired goal: Patient Facing Action Plan Sharda Lozano, [facility] Note: Remain 95% or more adherent to oral chemotherapy over the next year as measured by refill history documented as of this encounter Results * Magnesium (12/08/2023 11:56 AM EDT) Magnesium 0.90 0.69 - 1.07 mMol/L 12/08/2023 4:[address] [facility] Blood VENOUS BLOOD SPECIMEN / Unknown Venipuncture / Unknown 12/08/2023 11:56 AM EDT 12/08/2023 11:56 AM EDT Mitali Griffiths APRN CHEMISTRY ORDERAB LES Performing Organization Address City/State/[facility] Co de Phone Number [facility] [place] [address] documented in this encounter Visit Diagnoses Diagnosis [...] hepatitis documented in this encounter Care Teams Lease Buyer Relationship Specialty Start Date End Date Juan Dempsey MD [address] [place] [address] PCP - General Emergency Medicine 08/20/21 documented as of this encounter
--- OUTSIDE RECORDS SUMMARY | 2024-03-09 10:12 | XMS_ITS | Encounter Summary ---
Author Organization [facility] Address [facility] [place] [address] Care Team Providers Care Owner Oral Surgeon Name Role Phone Juan Dempsey MD Primary Care Provider [phone] Encounter Details Date Type Department Care Team (Late st Contact Info) Description 02/01/2024 Telephone Dermatology at [facility] [address] [place] [phone] Oli Winter MD [address] [facility] [address] Social History Tobacco Use Types Packs/Day Years [...] 10:30 AM EST Laboratory Appointment Lab at [facility] Hematology Oncology [address] [place] [address] 03/29/2024 12:[address] [place] [place] [phone] Albino Bartholomew MD [facility] HEMATOLOGY [place] [address] 04/05/2024 10:00 AM EST Office Visit [place]ology [place] [phone] Albino Bartholomew MD [facility] HEMATOLOGY [place] [address] documented as of this encounter Goals Goal Patient Goal Type Associated Problems Recent Progress Patient-Stated? Author Patient's specific desired goal: Patient Facing Action Plan Sharda Lozano, [facility] Note: Remain 95% or more adherent to oral chemotherapy over the next year as measured by refill history documented as of this encounter Visit Diagnoses Not on filedocumented in this encounter Care Teams Owner Oral Surgeon Relationship Specialty Start Date End Date Juan Dempsey MD [address] [place] [address] PCP - General Emergency Medicine 08/20/21 documented as of this encounter
--- OUTSIDE RECORDS SUMMARY | 2024-03-09 10:12 | XMS_ITS | Encounter Summary ---
Author Organization [facility] Address [facility] [place] [address] Care Team Providers Care Supervisor Cell Efficiency Name Role Phone Juan Dempsey MD Primary Care Provider [phone] Encounter Details Date Type Department Care Team (Late st Contact Info) Description 01/27/2024 Telephone Dermatology at [facility] [address] [place] [phone] Oli Winter MD [address] [facility] [place] [address] Social History Tobacco Use Types Packs/Day Years [...] he is being treated for? Please advise [phone]. documented in this encounter Plan of Treatment Upcoming Encounters Date Type Department Care Team (Late st Contact Info) Description 03/29/2024 10:30 AM EST Laboratory Appointment Lab at [facility] Hematology Oncology [address] [place] [address] 03/29/2024 12:[address] [place] [address] Albino Bartholomew MD [facility] [place] [address] 04/05/2024 10:00 AM EST Office Visit Hematology [place] [phone] Albino Bartholomew MD [facility] DR HEMATOLOGY [place] [address] documented as of this encounter Goals Goal Patient Goal Type Associated Problems Recent Progress Patient-Stated? Author Patient's specific desired goal: Patient Facing Action Plan Sharda Lozano, [facility] Note: Remain 95% or more adherent to oral chemotherapy over the next year as measured by refill history documented as of this encounter Visit Diagnoses Not on filedocumented in this encounter Care Teams Supervisor Cell Efficiency Relationship Specialty Start Date End Date Juan Dempsey MD [address] [place] [address] PCP - General Emergency Medicine 08/20/21 documented as of this encounter
--- OUTSIDE RECORDS SUMMARY | 2024-03-09 10:12 | XMS_ITS | Clinical Summary ---
Author Organization Formerly [facility] Address [facility] [place] [address] Care Team Providers Care Fish Warden Name Role Phone Juan Dempsey MD Primary Care Provider [phone] Allergies Active Allergy Reactions Criticality Noted Date [...] Take 25 mg by mouth daily. Active triamcinolone (Kenalog) 0.1 % Cream Apply [...] for Itching. 30 tablet 12 09/30/2023 Active potassium chloride ER (Klor-Con M) 10 mEq ER micro-encapsulated crystal tabletIndications:Hy pokalemia Take 1 tablet by mouth 2 times daily. 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 Travel 03/06/2024 Refill Hematology and Oncology at [place] [phone] Kelin Carlos APRN 03/03/2024 Telephone Hematology [place] [address] Daxa Arriola, DUANE 02/29/2024 Orders [place] [address] Ana Pringle MD Autoimmune hepatitis 02/29/2024 Travel 02/22/2024 Specialty Pharmacy Pharmacy at [place] [phone] Reshma Gar [facility] 02/16/2024 1:30 PM EDT Office Visit Hematology and Oncology at [place] [phone] Albino Bartholomew MD Metastatic 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 Hematology Oncology [address] [place] [address] Metastatic renal cell carcinoma to lung, unspecified laterality; High risk medication use; Abnormal thyroid function test; Renal cell carcinoma of left kidney 02/16/2024 Travel 02/11/2024 Travel 02/10/2024 Orders Only Hematology [place] [address] Albino Bartholomew MD Renal cell carcinoma of left kidney; High risk medication use; Abnormal thyroid function test 02/09/2024 12:30 PM EDT Laboratory Appointment Lab at [facility] Hematology [address] [address] Metastatic renal cell carcinoma to lung, unspecified laterality; High risk medication use; Abnormal thyroid function test 02/09/2024 11:47 AM EDT - 02/09/2024 11:59 PM EDT Hospital Encounter CT Scan at [place] [phone] Mitali Griffiths APRN Renal cell carcinoma of left kidney Discharge Disposition: Home 02/08/2024 Travel 02/06/2024 Orders Only Hematology [place] [address] Albino Bartholomew MD 02/04/2024 Telephone Hematology [place] [address] Padmini Mckeon RN 02/03/2024 Ancillary Procedure Radiology Library at [facility] [place] [address] Juan Dempsey MD 02/01/2024 Telephone Dermatology at [facility] [address] [place] [phone] Oli Winter MD 01/31/2024 Telephone Dermatology at [facility] [address] [place] [address] Suzy Suarez LPN 01/31/2024 Telephone Dermatology at [facility] [address] [place] [address] Oli Winter MD 01/27/2024 Telephone Dermatology at [facility] [address] [place] [place] [phone] Oli Winter MD 01/24/2024 11:30 AM EDT Office Visit Dermatology at [facility] [address] [facility] [place] [phone] Oli Winter MD Seborrheic keratosis; Multiple benign nevi; Lentigines; Rodríguez angioma; Folliculitis decalvans; Folliculitis; Family history of melanoma; Sebaceous hyperplasia 01/24/2024 Travel 01/18/2024 Refill Hematology [place] [phone] Kelin Carlos APRN Hypokalemia 01/17/2024 Specialty [place] [address] Jonas Vásquez, [facility] Refill Coordination - 28 day recurrence (cabozantinib s-malate) for HemOnc 01/17/2024 Refill [place] [phone] Kelin Carlos APRN 01/17/2024 Travel 12/13/2023 Specialty [place] [address] Sharda Lee, [facility] Refill Coordination - 28 day recurrence (cabozantinib s-malate) for HemOnc, Clinical Assessment - 10 month recurrence (cabozantinib s-malate) for HemOnc 12/10/2023 Specialty [place] [address] Sharda Lee, [facility] Refill Coordination - 28 day recurrence (cabozantinib s-malate) for HemOnc 12/08/2023 1:30 PM EDT Office Visit Hematology [place] [phone] Mitali Griffiths APRN Renal cell carcinoma of left kidney; Medication management; High risk medication use; Metastatic renal cell carcinoma to lung, unspecified laterality; Abnormal thyroid function test; Hypokalemia; Autoimmune hepatitis 12/08/2023 11:49 AM EDT - 12/08/2023 11:59 PM EDT Hospital Encounter Hematology [place] [phone] Metastatic renal cell carcinoma to lung, unspecified laterality; High risk medication use; Abnormal thyroid function test; Renal cell carcinoma of left kidney Discharge Disposition: Home 12/08/2023 Travel from Last 3 Months Immunizations Name Administration Dates Next Due Covid-19 Monovalent (Moderna Spikevax) 12yrs+ ([id number]) 02/24/2021,07/31/2020,07/03/2020 Zoster Recombinant (ShingRix) 03/16/2019 Family History Medical History Relation Comments [...] Pulse 57 03/07/2024 11:15 AM EST Temperature 36.5 ??C (97.7 ??F) 02/16/2024 1:30 PM ED T Respiratory Rate 18 03/07/2024 11:1 5 AM EST Oxygen Saturation 100% 03/07/2024 11: 15 AM EST Inhaled Oxygen Concentration - - Weight 100.2 kg (220 lb 12.8 oz) 2023 11:15 AM EST Height 179.7 cm (5' 10.75) 03/07/2024 11:15 AM EST Body Mass Index 31.01 03/07/2024 11:15 AM EST Plan of Treatment Upcoming Encounters Date Type Department Care Team (Late st Contact Info) Description 03/29/2024 10:30 AM EST Laboratory Appointment Lab at [facility] Hematology Oncology [address] [place] [address] 03/29/2024 12:[address] [place] [address] Albino Bartholomew MD [facility] [place] [address] 04/05/2024 10:00 AM EST Office Visit Hematology and Oncology at [facility] [place] [phone] Albino Bartholomew MD [facility] DR [place] [address] Health Maintenance Due Date Last Done Comments CT Colonography 1955 FIT DNA 1955 FIT 1955 Sigmoidoscopy 1955 Lipid Screening 1973 Tetanus/Diphtheria/Pertussis Vaccines (1 - Tdap) 1974 Zoster vaccine (2 of 2) 05/11/2019 03/16/2019 Pneumoccocal Vaccine: 65+ (1 of 1 - PCV) 02/18/2020 Covid-19 Vaccine (4 - 2023-2 5 season) 2024 02/24/2021, 07/31/2020, 07/03/2020 Influenza (Flu) vaccine (1 o f 1 - Influenza standard series) 01/02/2024 Diabetes Screening (HgbA1C o r Glucose) 02/15/2027 02/16/2024, 02/09/2024, 12/08/2023, Additional history exists Colonoscopy 10/02/2028 10/02/2021, 10/02/2021 [...] Procedure Name Priority Date/Time Associated Diagnosis Comments LAB SCAN 03/03/2024 12:00 AM EDT T4, FREE Routine 02/16/2024 11:49 AM EDT Metastatic renal cell carcinoma to lung, unspecified laterality High risk medication use Abnormal thyroid function test TSH Routine 02/16/2024 11:49 AM EDT Metastatic renal cell carcinoma to lung, unspecified laterality High risk medication use Abnormal thyroid function test COMPREHENSIVE METABOLIC PANEL Routine 02/16/2024 11:49 AM EDT Metastatic renal cell carcinoma to lung, unspecified laterality CBC (WITH DIFF) Routine 02/16/2024 11:49 AM EDT Metastatic renal cell carcinoma to lung, unspecified laterality CT CHEST, ABDOMEN, PELVIS WO CONTRAST Routine 02/09/2024 2:55 PM EDT Renal cell carcinoma of left kidney T4, FREE Routine 02/09/2024 12:11 PM EDT Metastatic renal cell carcinoma to lung, unspecified laterality High risk medication use Abnormal thyroid function test TSH Routine 02/09/2024 12:11 PM EDT Metastatic renal cell carcinoma to lung, unspecified laterality High risk medication use Abnormal thyroid function test COMPREHENSIVE METABOLIC PANEL Routine 02/09/2024 12:11 PM EDT Metastatic renal cell carcinoma to lung, unspecified laterality CBC (WITH DIFF) Routine 02/09/2024 12:11 PM EDT Metastatic renal cell carcinoma to lung, unspecified laterality FILM LIBRARY STORAGE ONLY ULTRASOUND STUDY Routine 02/03/2024 12:00 AM EDT LAB SCAN 02/03/2024 12:00 AM EDT MAGNESIUM Add-On 12/08/2023 11:56 AM EDT Renal [...] Recently Relevant to Health Maintenance Results * Scan Doc: Lab (03/03/2024 12:00 AM EDT) Only the most recent of2 resultswithin the time period is included. Narrative 03/03/2024 12:00 AM EDT Ordered by an unspecified provider. Scanning Provider MEDIA MGR SCAN EXT O RDR/RSLT * (ABNORMAL) CBC (with Diff) (02/16/2024 11:49 AM EDT) Only the most recent of3 resultswithin the time period is included. White Blood Cell 6.97 4.00 - 9.50 x10(3)/mc L 02/16/2024 12:11 PM EDT [facility] Red Blood Cell 4.73 4.58 - 5.54 x10(6)/mc L 02/16/2024 12:11 PM EDT [facility] Hemoglobin 14.0 13.7 - 16.5 g/dL 02/16/2024 12:11 PM EDT [facility] Hematocrit 43.6 40.5 - 48.5 % 02/16/2024 12:11 PM EDT [facility] Mean Cell Volume 92.2 82.9 - 93.1 fL 02/16/2024 12:11 PM [facility] Mean Cell Hemoglobin 29.6 27.5 - 32.1 pg 02/16/2024 12:11 PM [facility] Mean Cell Hemoglobin Concentration 32.1 32.0 - 35.7 g/dL 02/16/2024 12:11 PM [facility] Platelet 208 145 - 357 x10(3)/mc L 02/16/2024 12:11 PM [facility] Mean Platelet Volume 9.9 7.6 - 12.9 fL 02/16/2024 12:11 PM [facility] RDW Standard Deviation 53.2(H) 36.0 - 45.0 fL 02/16/2024 12:11 PM [facility] RDW coefficient of variation 15.6(H) 11.4 - 13.8 % 02/16/2024 12:11 PM [facility] NRBC% auto 0.0 % 02/16/2024 12:11 PM [facility] NRBC Absolute <0.01 <0.01 x10(3)/mc L 02/16/2024 12:11 PM [facility] Neutrophil % 67.8 % 02/16/2024 12:11 PM [facility] Neutrophil Absolute (ANC) - Automated 4.72 1.70 - 6.10 x10(3)/mc L 02/16/2024 12:11 PM [facility] Lymph % 22.2 % 02/16/2024 12:11 PM [facility] Lymph Absolute 1.55 0.90 - 3.20 x10(3)/mc L 02/16/2024 12:11 PM [facility] Monocyte % 5.6 % 02/16/2024 12:11 PM [facility] Monocyte Absolute 0.39 0.30 - 0.90 x10(3)/mc L 02/16/2024 12:11 PM [facility] Eos % 3.0 % 02/16/2024 12:11 PM EDT [facility] Eos Absolute 0.21 0.00 - 0.40 x10(3)/mc L 02/16/2024 12:11 PM EDT [facility] Basophil % 1.3 % 02/16/2024 12:11 PM EDT [facility] Baso Absolute 0.09 0.00 - 0.10 x10(3)/mc L 02/16/2024 12:11 PM EDT [facility] Immature Gran % 0.1 % 12:11 PM EDT [facility] Immature Gran Absolute <0.04 0.00 - 0.04 x10(3)/mc L 02/16/2024 12:11 PM EDT [facility] Blood VENOUS BLOOD SPECIMEN / Unknown Venipuncture / Unknown 02/16/2024 11:49 AM EDT 02/16/2024 11:49 AM EDT Albino Bartholomew MD HEMATOLOGY ORDERABLE S [facility] [place] [address] * TSH (02/16/2024 11:49 AM EDT) Only the most recent of3 resultswithin the time period is included. Thyroid Stimulating Hormone 4.13 0.27 - 4.20 mcIU/mL 02/16/2024 1:30 PM EDT [facility] Blood VENOUS BLOOD SPECIMEN / Unknown Venipuncture / Unknown 02/16/2024 11:49 AM EDT 02/16/2024 11:49 AM EDT Albino Bartholomew MD CHEMISTRY ORDERABLES [facility] [place] [address] * T4, free (02/16/2024 11:49 AM EDT) Only the most recent of3 resultswithin the time period is included. Free T4 1.53 0.93 - 1.70 ng/dL 02/16/2024 1:30 PM EDT [facility] Blood VENOUS BLOOD SPECIMEN / Unknown Venipuncture / Unknown 02/16/2024 11:49 AM EDT 02/16/2024 11:49 AM EDT Albino Bartholomew MD CHEMISTRY ORDERABLES [facility] [place] [address] * (ABNORMAL) Comprehensive metabolic panel (02/16/2024 11:49 AM EDT) Only the most recent of3 resultswithin the time period is included. [facility] Glucose 97 65 - 199 mg/dL 02/16/2024 1:30 PM EDT [facility] Comment:Glucose Concentratio n >=200 mg/dL plus symptoms is consistent with Diabetes Mellitus. Blood Urea Nitrogen 30(H) 10 - 20 mg/dL 02/16/2024 1:30 PM EDT [facility] Creatinine 1.68(H) 0.80 - 1.50 mg/dL 02/16/2024 1:30 PM EDT [facility] Sodium 140 135 - 145 mMol/L 02/16/2024 1:30 PM EDT [facility] Potassium 4.5 3.5 - 5.0 mMol/L 02/16/2024 1:30 PM EDT [facility] Chloride 105 98 - 107 mMol/L 02/16/2024 1:30 PM EDT [facility] Carbon Dioxide 27 22 - 31 mMol/L 02/16/2024 1:30 PM EDT [facility] Anion Gap 8 5 - 15 mMol/L 02/16/2024 1:30 PM EDT [facility] Calcium 9.0 8.5 - 10.5 mg/dL 02/16/2024 1:30 PM EDT [facility] Protein, Total 7.0 6.1 - 8.0 g/dL 02/16/2024 1:30 PM EDT [facility] Albumin 4.0 3.2 - 5.2 g/dL 02/16/2024 1:30 PM EDT [facility] Aspartate Aminotransferase 25 <=39 unit/L 02/16/2024 1:30 PM EDT [facility] Alanine Aminotransferase 91(H) 0 - 55 unit/L 02/16/2024 1:30 PM EDT [facility] Alkaline Phosphatase 263(H) 40 - 130 unit/L 02/16/2024 1:30 PM EDT [facility] Bilirubin, Total 0.6 <=1.3 mg/dL 02/16/2024 1:30 PM EDT [facility] Est Glomerular Filtration Rate - Male 44 mL/min/1. 73 m?? 02/16/2024 1:30 PM EDT [facility] Comment: This patient's [...] Fasting Status No 02/16/2024 1:30 PM EDT [facility] Blood VENOUS BLOOD SPECIMEN / Unknown Venipuncture / Unknown 02/16/2024 11:49 AM EDT 02/16/2024 11:49 AM EDT Albino Bartholomew MD CHEMISTRY ORDERABLES [facility] [place] [address] * CT Chest Abdomen Pelvis wo Contrast (02/09/2024 2:55 PM EDT) WORKSTATION ID [id number] RAD Anatomical Region Laterality Modality Abdomen, Pelvis Computed Tomogra phy Impressions 02/10/2024 2:23 AM EDT Multiple enlarging bilateral lobulated and serpiginous pulmonary metastases. Biopsy proven metastatic focus left lower lobe. Solitary new right middle lobe nodule. Remainder stable. Thank you for letting us participate in the care of this patient. ??If you are a health care provider and have any questions regarding this report, please contact the number below. ??For patients who have questions please contact the health career development associate that requested your imaging first. ? Electronically signed by: Jaja Hamilton MD, [facility] ([phone]), at 02/10/2024 2:23 AM Narrative 02/10/2024 2:23 AM EDT EXAMINATION: CT CHEST ABDOMEN PELVIS WO CONTRAST CLINICAL HISTORY: Patient with metastatic renal cell carcinoma, assess treatment response C64.2, Malignant neoplasm of left kidney, except renal pelvis TECHNIQUE: Helical CT of the chest, abdomen and pelvis was performed without intravenous contrast. Oral contrast was administered. COMPARISON: October 08, 2023 FINDINGS: The absence of intravenous contrast limits the evaluation of solid viscera and vasculature. Chest: Lungs and large airways: Lobulated and serpiginous pulmonary metastases in the right upper, right middle and left lower lobes enlarging. New 5 mm pulmonary nodule medial right middle lobe. Remaining pulmonary nodules stable. Pleura: No effusion. Heart/vasculature: Normal size heart Lymph nodes: None pathologically enlarged Mediastinum and christine: Small hiatal hernia Chest wall: No muscular asymmetry Abdomen/pelvis: Liver: Normal size and contour. Bile ducts: Nondilated. Gallbladder: No calcified gallstones. Normal caliber wall. Pancreas: Normal contour Spleen: Normal size Adrenals: Normal contours Kidneys: Status post left nephrectomy with clear surgical bed. Stable hemorrhagic or proteinaceous exophytic right renal cyst. Stable simple right renal cyst. No right collecting system dilation. Urinary Bladder: Collapsed Vasculature: No abdominal aortic aneurysm. Lymph Nodes: No enlarged lymph nodes. Bowel: Diverticulosis without acuity. Normal caliber loops of large and small bowel. Stomach is collapsed. Peritoneum and retroperitoneum: No free fluid or loculated fluid collection. No pneumoperitoneum. No mesenteric inflammation. Abdominal wall: Fat filled right inguinal region hernia. No muscular asymmetry. Small fat filled umbilical hernia. Reproductive organs: Normal prostate contour Osseous structures: No suspicious lesions. Procedure Note Jaja Hamilton MD - 02/10/2024 EXAMINATION: CT CHEST ABDOMEN PELVIS WO CONTRAST CLINICAL HISTORY: Patient with metastatic renal cell carcinoma, assesstreatment response C64.2, Malignant neoplasm of left kidney, except renal pelvis TECHNIQUE: Helical CT of the chest, abdomen and pelvis was performedwithout intravenous contrast. Oral contrast was administered. COMPARISON: October 08, 2023 FINDINGS: The absence of intravenous contrast limits the evaluation of solid visceraand vasculature. Chest: Lungs and large airways: Lobulated and serpiginous pulmonary metastases inthe right upper, right middle and left lower lobes enlarging. New 5 mm pulmonary nodule medial right middle lobe. Remaining pulmonary nodules stable. Pleura: No effusion. Heart/vasculature: Normal size heart Lymph nodes: None pathologically enlarged Mediastinum and christine: Small hiatal hernia Chest wall: No muscular asymmetry Abdomen/pelvis: Liver: Normal size and contour. Bile ducts: Nondilated. Gallbladder: No calcified gallstones. Normal caliber wall. Pancreas: Normal contour Spleen: Normal size Adrenals: Normal contours Kidneys: Status post left nephrectomy with clear surgical bed. Stable hemorrhagic or proteinaceous exophytic right renal cyst. Stable simpleright renal cyst. No right collecting system dilation. Urinary Bladder: Collapsed Vasculature: No abdominal aortic aneurysm. Lymph Nodes: No enlarged lymph nodes. Bowel: Diverticulosis without acuity. Normal caliber loops of large andsmall bowel. Stomach is collapsed. Peritoneum and retroperitoneum: No free fluid or loculated fluidcollection. No pneumoperitoneum. No mesenteric inflammation. Abdominal wall: Fat filled right inguinal region hernia. No muscularasymmetry. Small fat filled umbilical hernia. Reproductive organs: Normal prostate contour Osseous structures: No suspicious lesions. IMPRESSION Multiple enlarging bilateral lobulated and serpiginous pulmonarymetastases. Biopsy proven metastatic focus left lower lobe. Solitary new right middle lobe nodule. Remainder stable. Thank you for letting us participate in the care of this patient. If youare a health care provider and have any questions regarding this report,please contact the number below. For patients who have questions please contactthe health career development associate that requested your imaging first. Electronically signed by: Jaja Hamilton MD, [facility]([phone]), at 02/10/2024 2:23 AM Mitali Griffiths APRN IMG CT ORDERABLES * Film Library- Storage Only Ultrasound Study (02/03/2024 12:00 AM EDT) Narrative RAD - 02/22/2024 2:52 PM EDT This exam is auto-finalizing. It's purpose is for storage only. Juan Dempsey MD IM FILM LIBRARY ORD ERABLES Performing Organization Address City/[facility]/ZIP Co de Phone Number [place], [place] * Magnesium (12/08/2023 11:56 AM EDT) Magnesium 0.90 0.69 - 1.07 mMol/L 12/08/2023 4:48 PM EDT [facility] Blood VENOUS BLOOD SPECIMEN / Unknown Venipuncture / Unknown 12/08/2023 11:56 AM EDT 12/08/2023 11:56 AM EDT Mitali Griffiths APRN CHEMISTRY ORDERAB LES [facility] [place] [address] * COLONOSCOPY (10/02/2021 3:02 PM EDT) COLONOSCOPY [facility] Endoscopy Procedure Date: 10/02/2021 3:02 PM ? Patient Name: Raymundo Mariscal ? Date of : 1955 ? Age: 66 ? Order #: [id number] ? Instrument Name: [id number] ? Procedure: ? Colonoscopy Indications: ? Positive Cologuard test Providers: ? Jordyn Merino MD, Jennyfer Armando, ? Landon ZEPEDA MD: ?Juan Dempsey MD Medicines: ? Midazolam 4 [...] Documents on File Type Date Recorded Patient Liturgical Music Director Expl anation Advance Directives and Gwen cabrera Will 08/08/2021 2:48 PM [place] AD 11/23/2018 [...] Status decision made by: Patient Care Teams Fish Warden Relationship Specialty Start Date End Date Juan Dempsey MD [address] [place] [id number] PCP - General Emergency Medicine 08/20/21
--- OUTSIDE RECORDS SUMMARY | 2024-03-09 10:12 | XMS_ITS | Encounter Summary ---
Author Organization [facility] Address [facility] [place] [address] Care Team Providers Care Bowling Ball Assembler Name Role Phone Juan Dempsey MD Primary Care Provider Encounter Details Date Type Department Care Team (Late st Contact Info) Description 02/06/2024 Orders Only Hematology [place] [phone] Albino Bartholomew MD [facility] DR HEMATOLOGY [place] [address] Social History Tobacco Use Types Packs/Day Years [...] 10:30 AM EST Laboratory Appointment Lab at [facility] Hematology Oncology [address] [place] [address] 03/29/2024 12:[address] [place] [phone] Albino Bartholomew MD [facility] DR HEMATOLOGY [place] [address] 04/05/2024 10:00 AM EST Office Visit Hematology [place] [address] Albino Bartholomew MD [facility] DR HEMATOLOGY [place] [address] documented as of this encounter Goals Goal Patient Goal Type Associated Problems Recent Progress Patient-Stated? Author Patient's specific desired goal: Patient Facing Action Plan Sharda Lozano, [facility] Note: Remain 95% or more adherent to oral chemotherapy over the next year as measured by refill history documented as of this encounter Visit Diagnoses Not on filedocumented in this encounter Care Teams Bowling Ball Assembler Relationship Specialty Start Date End Date Juan Dempsey MD [address] [place] [id number] PCP - General Emergency Medicine 08/20/21 documented as of this encounter
--- OUTSIDE RECORDS SUMMARY | 2024-03-09 10:12 | XMS_ITS | Encounter Summary ---
Author Organization [facility] Address [facility] [place] [address] Care Team Providers Care Resourcing Advisor Name Role Phone Juan Dempsey MD Primary Care Provider [phone] Reason for Visit * Diagnostic Test (Routine) - Closed Specialty Diagnoses / Procedures Referred By Burak mcnair Referred To Contact Radiology Diagnoses Renal cell carcinoma of left kidney Procedures CT Chest Abdomen Pelvis wo Contrast CT Chest Abdomen Pelvis w Contrast (Generic) Mitali Griffiths APRN [facility] HEMATOLOGY [place] [address] [facility] [place] [address] Referral ID Status Reason Start Date Expiration Date V isits Requested Visits Authorized [id number] Closed Specialty Service Requested 12/08/2023 06/09/2025 1 1 Encounter Details Date Type Department Care Team (Late st Contact Info) Description 02/09/2024 11:47 AM EDT - 02/09/2024 11:59 PM EDT Hospital [place] [address] Mitali Griffiths APRN [facility] HEMATOLOGY [place] [address] Renal cell carcinoma of left kidney Discharge [...] Sig Dispensed Refills Start Date End Date clindamycin (CLEOCIN T) 1 % LotionIndications:Foll iculitis decalvans Apply thin layer to affected areas on the scalp and neck twice daily 60 mL 11 01/24/2024 potassium chloride ER (Klor-Con M) 10 mEq ER micro-encapsulated crystal tabletIndications:Hypo kalemia Take 1 tablet by mouth 2 times daily. 60 tablet 1 01/21/2024 triamcinolone (Kenalog) 0.1 % Cream Apply topically [...] needed for Itching. 30 tablet 12 09/30/2023 chlorthalidone (Hygroten) 25 mg Tablet Take 25 [...] Take 100 mg by mouth daily. 04/11/2019 doxycycline (Vibramycin) 100 mg capsuleIndications:Fol liculitis decalvans Take 1 capsule by mouth 2 times daily. 90 capsule 3 01/24/2024 03/07/2024 cabozantinib (Cabometyx) 20 mg tabletIndications:fatmata l cell carcinoma Take daily 5 days/week, then hold for 2 days/week. Take on an empty stomach. Call clinic before starting medication. Indications: renal cell carcinoma 20 tablet 5 11/15/2023 02/16/2024 levothyroxine (Synthroid) 75 mcg tablet Take 1 tablet by mouth daily. 30 tablet 5 08/26/2023 03/06/2024 documented as of this encounter Plan of Treatment Upcoming Encounters Date Type Department Care Team (Late st Contact Info) Description 03/29/2024 10:30 AM EST Laboratory Appointment Lab at [facility] Hematology Oncology [address] [place] [address] 03/29/2024 12:[address] [place] [address] Albino Bartholomew MD [facility] DR HEMATOLOGY [place] [address] 04/05/2024 10:00 AM EST Office Visit Hematology [place] [address] Albino Bartholomew MD [facility] HEMATOLOGY [place] [address] documented as of this encounter Goals Goal Patient Goal Type Associated Problems Recent Progress Patient-Stated? Author Patient's specific desired goal: Patient Facing Action Plan Sharda Lozano, [facility] Note: Remain 95% or more adherent to oral chemotherapy over the next year as measured by refill history documented as of this encounter Procedures Procedure Name Priority Date/Time Associated Diagnosis Comments CT CHEST, ABDOMEN, PELVIS WO CONTRAST Routine 02/09/2024 2:55 PM EDT Renal cell carcinoma of left kidney documented in this encounter Results * CT Chest Abdomen Pelvis wo Contrast (02/09/2024 2:55 PM EDT) [employer] WORKSTATION ID [id number] RAD Anatomical Region Laterality Modality Abdomen, Pelvis [...] who have questions please contact the health foster care case manager that requested your imaging first. ? Electronically signed by: Jaja Hamilton MD, [facility] ([phone]), at 02/10/2024 2:23 AM Narrative 02/10/2024 2:23 [...] patients who have questions please contactthe health foster care case manager that requested your imaging first. Mitali Griffiths APRN IMG CT ORDERABLES documented in this encounter Visit Diagnoses Diagnosis Renal cell carcinoma of left kidney documented in this encounter Administered Medications Inactive Administered Medications - up to 3 most recent administrations Medication Order MAR Action Action Date Dose Rate Site iohexoL (Omnipaque) (350 mg/mL) solution 0-50 mL 0-50 mL, Oral, ONCE, 1 dose, On Wed02/09/24 at 1545, Warning Vesicant/Irritant Medication , Radiology Contrast, Routine Given 02/09/2024 3:45 PM EDT 50 mLs documented in this encounter Care Teams Resourcing Advisor Relationship Specialty Start Date End Date Juan Dempsey MD [address] [place] [address] PCP - General Emergency Medicine 08/20/21 documented as of this encounter
--- OUTSIDE RECORDS SUMMARY | 2024-03-09 10:12 | XMS_ITS | Encounter Summary ---
Author Organization [facility] Address [facility] [place] [address] Care Team Providers Care Electrical Engineer Name Role Phone Juan Dempsey MD Primary Care Provider [phone] Encounter Details Date Type Department Care Team (Late st Contact Info) Description 02/03/2024 Ancillary Procedure Radiology Library at [facility] [place] [address] Juan Dempsey MD [address] [place] [address] Social History Tobacco Use Types [...] 10:30 AM EST Laboratory Appointment Lab at [facility] [place] [address] [place] [address] 03/29/2024 12:[address] [place] [address] Albino Bartholomew MD [facility] [place] [address] 04/05/2024 10:00 AM EST Office Visit Hematology [place] [address] Albino Bartholomew MD [facility] [place] [address] documented as of this encounter Goals Goal Patient Goal Type Associated Problems Recent Progress Patient-Stated? Author Patient's specific desired goal: Patient Facing Action Plan Sharda Lozano, [facility] Note: Remain 95% or more adherent to oral chemotherapy over the next year as measured by refill history documented as of this encounter Procedures Procedure Name Priority Date/Time Associated Diagnosis Comments FILM LIBRARY STORAGE ONLY ULTRASOUND STUDY Routine 02/03/2024 12:00 AM EDT documented in this encounter Results * Film Library- Storage Only Ultrasound Study (02/03/2024 12:00 AM EDT) Narrative [facility] - 02/22/2024 2:52 PM EDT This exam is auto-finalizing. It's purpose is for storage only. Juan Dempsey MD IMG FILM LIBRARY ORD ERABLES Performing Organization Address City/State/[facility] Co de Phone Number [place], [place] documented in this encounter Visit Diagnoses Not on filedocumented in this encounter Care Teams Electrical Engineer Relationship Specialty Start Date End Date Juan Dempsey MD [address] [place] [address] PCP - General Emergency Medicine 08/20/21 documented as of this encounter
--- OUTSIDE RECORDS SUMMARY | 2024-03-09 10:12 | XMS_ITS | Encounter Summary ---
Author Organization [facility] Address [facility] [place] [address] Care Team Providers Care Utilization Management Manager Name Role Phone Juan Dempsey MD Primary Care Provider [phone] Encounter Details Date Type Department Care Team (Late st Contact Info) Description 01/31/2024 Telephone Dermatology at [facility] [address] [place] [address] Oli Winter MD [address] [facility] [address] Social History Tobacco Use Types Packs/Day Years [...] 10:30 AM EST Laboratory Appointment Lab at [facility] Hematology Oncology [address] [place] [address] 03/29/2024 12:[address] [place] [address] Albino Bartholomew MD [facility] [place] [address] 04/05/2024 10:00 AM EST Office Visit Hematology [place] [address] Albino Bartholomew MD [facility] [place] [address] documented as of this encounter Goals Goal [...] on filedocumented in this encounter Care Teams Utilization Management Manager Relationship Specialty Start Date End Date Juan Dempsey MD [address] [place] [address] PCP - General Emergency Medicine 08/20/21 documented as of this encounter
--- OUTSIDE RECORDS SUMMARY | 2024-03-09 10:12 | XMS_ITS | Encounter Summary ---
Author Organization [facility] Address [facility] [place] [address] Care Team Providers Care Analysis Tester Name Role Phone Juan Dempsey MD Primary Care Provider [phone] Encounter Details Date Type Department Care Team [...] EST Laboratory Appointment Lab [place] [facility] [place] [address] [place] [address] 03/29/2024 12:[address] [place] [place] [address] Albino Bartholomew MD [facility] [address] [place] [address] 04/05/2024 10:00 AM EST Office Visit [place] [address] Albino Bartholomew MD [facility] [place] [address] documented as of this encounter Goals Goal Patient Goal Type Associated Problems Recent Progress Patient-Stated? Author Patient's specific desired goal: Patient Facing Action Plan No Sharda Lee, [facility] Note: Remain 95% or more adherent to oral chemotherapy over the next year as measured by refill history documented as of this encounter Visit Diagnoses Not on filedocumented in this encounter Care Teams Analysis Tester Relationship Specialty Start Date End Date Juan Dempsey MD [address] [place] [address] PCP - General Emergency Medicine 08/20/21 documented as of this encounter
--- OUTSIDE RECORDS SUMMARY | 2024-03-09 10:12 | XMS_ITS | Encounter Summary ---
Author Organization [facility] Address [facility] [place] [address] Care Team Providers Care Photographic Equipment Inspector Name Role Phone Juan Dempsey MD Primary Care Provider [phone] Reason for Visit * Reason Onset Date Comments Medication Refill 01/18/2024 Encounter Details Date Type Department Care Team (Late st Contact Info) Description 01/18/2024 Refill Hematology [place] [address] HEMATOLOGY AND ONCOLOGY [place], [place] [phone] Hypokalemia Social History Tobacco Use Types Packs/Day [...] 01/21/2024 9:29 AM EDT Received request via [facility] for refill of Klor-Con. Latest Reference Range [...] AM EST Laboratory Appointment Lab at [facility] Hematology Oncology [address] [place] [address] 03/29/2024 12:[address] [place] [address] Albino Bartholomew MD [facility] [address] [place] [address] 04/05/2024 10:00 AM EST Office Visit Hematology [place] [address] Albino Bartholomew MD [facility] [address] [place] [address] documented as of this encounter Goals Goal Patient Goal Type Associated Problems Recent Progress Patient-Stated? Author Patient's specific desired goal: Patient Facing Action Plan Sharda Lozano, [facility] Note: Remain 95% or more adherent to oral chemotherapy over the next year as measured by refill history documented as of this encounter Visit Diagnoses Diagnosis Hypokalemia Hypopotassemia documented in this encounter Care Teams Photographic Equipment Inspector Relationship Specialty Start Date End Date Juan Dempsey MD [address] [place] [address] PCP - General Emergency Medicine 08/20/21 documented as of this encounter
--- OUTSIDE RECORDS SUMMARY | 2024-03-09 10:12 | XMS_ITS | Encounter Summary ---
Author Organization [facility] Address [facility] [place] [address] Care Team Providers Care Liability Claims Examiner Name Role Phone Juan Dempsey MD Primary Care Provider [phone] Encounter Details Date Type Department Care Team (Latest Contact Info) Description 02/11/2024 Travel Social History Tobacco Use Types Packs/Day [...] 10:30 AM EST Laboratory Appointment Lab at [facility] [place] [address] [place] [address] 03/29/2024 12:[address] [place] [place] [address] Albino Bartholomew MD [facility] [address] [place] [address] 04/05/2024 10:00 AM EST Office Visit [place]ology [place] [address] Albino Bartholomew MD [facility] [address] [place] [address] documented as of this encounter Goals Goal Patient Goal Type Associated Problems Recent Progress Patient-Stated? Author Patient's specific desired goal: Patient Facing Action Plan No Sharda Lee, [facility] Note: Remain 95% or more adherent to oral chemotherapy over the next year as measured by refill history documented as of this encounter Visit Diagnoses Not on filedocumented in this encounter Care Teams Liability Claims Examiner Relationship Specialty Start Date End Date Juan Dempsey MD [address] [place] [address] PCP - General Emergency Medicine 08/20/21 documented as of this encounter
--- OUTSIDE RECORDS SUMMARY | 2024-03-09 10:12 | XMS_ITS | Encounter Summary ---
Author Organization [facility] Address [facility] [address] Care Team Providers Care Sql Etl Developer Name Role Phone Juan Dempsey MD Primary Care Provider [phone] Encounter Details Date Type Department Care Team [...] 10:30 AM EST Laboratory Appointment Lab at [facility] Hematology Oncology [address] [place] [address] 03/29/2024 12:[address] [place] [address] Albino Bartholomew MD [facility] DR HEMATOLOGY [place] [address] 04/05/2024 10:00 AM EST Office Visit Hematology [place] [address] Albino Bartholomew MD [facility] DR HEMATOLOGY [place] [address] documented as of this encounter Goals Goal Patient Goal Type Associated Problems Recent Progress Patient-Stated? Author Patient's specific desired goal: Patient Facing Action Plan No Sharda Lee, [facility] Note: Remain 95% or more adherent to oral chemotherapy over the next year as measured by refill history documented as of this encounter Visit Diagnoses Not on filedocumented in this encounter Care Teams Sql Etl Developer Relationship Specialty Start Date End Date Juan Dempsey MD [address] [place] [address] PCP - General Emergency Medicine 08/20/21 documented as of this encounter
--- OUTSIDE RECORDS SUMMARY | 2024-03-09 10:12 | XMS_ITS | Encounter Summary ---
Author Organization [facility] Address [facility] [place] [address] Care Team Providers Care Painter Tumbling Barrel Name Role Phone Juan Dempsey MD Primary Care Provider [phone] Encounter Details Date Type Department Care Team (Late st Contact Info) Description 02/29/2024 Orders [place] [address] Ana Pringle MD [facility] [place] [address] Autoimmune hepatitis Social History Tobacco Use Types [...] [facility] Hematology Oncology [address] [place] [address] 03/29/2024 12:[address] [place] [place] [address] Albino Bartholomew MD [facility] DR HEMATOLOGY [place] [address] 04/05/2024 10:00 AM EST Office Visit [place]ology [place] [address] Albino Bartholomew MD [facility] DR HEMATOLOGY [place] [address] Scheduled Orders Name Type Priority Associated Diagnoses Orde r Schedule Comprehensive metabolic panel Non-fasting Lab Routine Autoimmune hepatitis Expected: 03/07/2024 (Approximate), Expires: 09/06/2024 documented as of this encounter Goals Goal Patient Goal Type Associated Problems Recent Progress Patient-Stated? Author Patient's specific desired goal: Patient Facing Action Plan No Sharda Lee, [facility] Note: Remain 95% or more adherent to oral chemotherapy over the next year as measured by refill history documented as of this encounter Visit Diagnoses Diagnosis Autoimmune hepatitis documented in this encounter Care Teams Painter Tumbling Barrel Relationship Specialty Start Date End Date Juan Dempsey MD [address] [place] [address] PCP - General Emergency Medicine 08/20/21 documented as of this encounter
--- OUTSIDE RECORDS SUMMARY | 2024-03-09 10:12 | XMS_ITS | Encounter Summary ---
Author Organization [facility] Address [facility] [place] [address] Care Team Providers Care Lead Network Architect Name Role Phone Juan Dempsey MD Primary Care Provider [phone] Encounter Details Date Type Department Care Team (Late st Contact Info) Description 01/24/2024 11:30 AM EDT Office Visit Dermatology at [facility] [address] [place] [address] Oli Winter MD [address] [facility] [place] [place] [address] Seborrheic keratosis; Multiple benign nevi; Lentigines; Rodríguez [...] Oli Winter MD FAAD at Dermatology at [facility] Patient's preferred name Cristofer Preferred contact method [...] to contact clinic for alternative. Handout from [employer] given to the patient. Start Rx [...] laser therapy. Cosmetic treatment and therefore, likely [id number] expense. Handout given. Answered all questions. Patient [...] unless symptoms develop. Treatment considered cosmetic and [id number]. Treatment options, including but not limited to [...] dermatitis. [x] Recall placed [] Forwarded to ware cleaner [x] Patient scheduled before exiting Scribe attestation: Jonas Sanchez, RN has performed the documentation for this encounter in the presence of and acting as a scribe for Oli Winter MD FAAMichael. I performed the above scribed service and agree with the accuracy of the documentation in this encounter. Reviewed and signed by: MD LEONEL Leal Dermatology [facility] * Oli Winter MD - 01/24/2024 11:30 AM EDT Reviewed with Oncologist, Dr Hoyt who stated: I don't see any interaction between cabometyx and doxycycline, so it should be fine. documented in this encounter Plan of Treatment Upcoming Encounters Date Type Department Care Team (Late st Contact Info) Description 03/29/2024 10:30 AM EST Laboratory Appointment Lab at [facility] Hematology Oncology [address] [place] [address] 03/29/2024 12:[address] [place] [address] Albino Bartholomew MD [facility] [place] [address] 04/05/2024 10:00 AM EST Office Visit [place] [address] Albino Bartholomew MD [facility] DR [place] [address] documented as of this encounter Goals Goal Patient Goal Type Associated Problems Recent Progress Patient-Stated? Author Patient's specific desired goal: Patient Facing Action Plan Sharda Lozano, [facility] Note: Remain 95% or more adherent to [...] glands documented in this encounter Care Teams Lead Network Architect Relationship Specialty Start Date End Date Juan Dempsey MD [address] [place] [address] PCP - General Emergency Medicine 08/20/21 documented as of this encounter
--- OUTSIDE RECORDS SUMMARY | 2024-03-09 10:12 | XMS_ITS | Encounter Summary ---
Author Organization [facility] Address [facility] [place] [address] Care Team Providers Care Mild Disabilities Teacher Name Role Phone Juan Dempsey MD Primary Care Provider [phone] Encounter Details Date Type Department Care Team (Late st Contact Info) Description 03/03/2024 Telephone Hematology [place] [address] Daxa Arriola RN Social History [...] Telephone Encounter - Daxa Arriola RN - 03/03/2024 4:07 PM EDT Pt updated on LFTs via [employer]. documented in this encounter Plan of Treatment Upcoming Encounters Date Type Department Care Team (Late st Contact Info) Description 03/29/2024 10:30 AM EST Laboratory Appointment Lab at [facility] H[place] Oncology [address] [place] [address] 03/29/2024 12:[address] [place] [address] Albino Bartholomew MD [facility] DR HEMATOLOGY [place] [address] 04/05/2024 10:00 AM EST Office Visit Hematology [place] [address] Albino Bartholomew MD [facility] DR HEMATOLOGY [place] [address] documented as of this encounter Goals Goal [...] on filedocumented in this encounter Care Teams Mild Disabilities Teacher Relationship Specialty Start Date End Date Juan Dempsey MD [address] [place] [address] PCP - General Emergency Medicine 08/20/21 documented as of this encounter
--- OUTSIDE RECORDS SUMMARY | 2024-03-09 10:12 | XMS_ITS | Encounter Summary ---
Author Organization [facility] [place] [address] Care Team Providers Care Sales Executive Insurance Name Role Phone Juan Dempsey MD Primary Care Provider [phone] Reason for Visit * Reason Onset Date Comments Medication Refill 01/17/2024 Encounter Details Date Type Department Care Team (Late st Contact Info) Description 01/17/2024 Refill [place] [address] HEMATOLOGY AND ONCOLOGY [place], [place] [id number] Social History Tobacco Use Types Packs/Day Years [...] 10:30 AM EST Laboratory Appointment Lab at [facility] Hematology Oncology [address] [place] [address] 03/29/2024 12:[address] [place] [place] [address] Albino Bartholomew MD [facility] DR [place] [address] 04/05/2024 10:00 AM EST Office Visit [place]ematology [place] [address] Albino Bartholomew MD [facility] DR [place] [address] documented as of this encounter Goals Goal Patient Goal Type Associated Problems Recent Progress Patient-Stated? Author Patient's specific desired goal: Patient Facing Action Plan No Sharda Lee, [facility] Note: Remain 95% or more adherent to oral chemotherapy over the next year as measured by refill history documented as of this encounter Visit Diagnoses Not on filedocumented in this encounter Care Teams Sales Executive Insurance Relationship Specialty Start Date End Date Juan Dempsey MD [address] [place] [address] PCP - General Emergency Medicine 08/20/21 documented as of this encounter
--- OUTSIDE RECORDS SUMMARY | 2024-03-09 10:12 | XMS_ITS | Encounter Summary ---
Author Organization [facility] Address [facility] [place] [address] Care Team Providers Care Section Leader And Machine Setter Name Role Phone Juan Dempsey MD Primary Care Provider [phone] Encounter Details Date Type Department Care Team (Latest Contact Info) Description 01/17/2024 Specialty [place] [phone] Jonas Vásquez, ELECTRIC RANGE SERVICER Refill Coordination - 28 day recurrence (cabozantinib [...] Standard Peanut Medication Reconciliation Discrepancies (compared to [facility] med list) No Review Flowsheet 01/17/2024 [...] 10:30 AM EST Laboratory Appointment Lab at [facility] Hematology Oncology [address] [place] [address] 03/29/2024 12:[address] [place] [address] Albino Bartholomew MD [facility] DR [place] [address] 04/05/2024 10:00 AM EST Office Visit Hematology [place] [address] Albino Bartholomew MD [facility] DR [place] [address] documented as of this encounter Goals Goal Patient Goal Type Associated Problems Recent Progress Patient-Stated? Author Patient's specific desired goal: Patient Facing Action Plan No Sharda Lee, [facility] Note: Remain 95% or more adherent to oral chemotherapy over the next year as measured by refill history documented as of this encounter Visit Diagnoses Not on filedocumented in this encounter Care Teams Section Leader And Machine Setter Relationship Specialty Start Date End Date Juan Dempsey MD [address] [place] [address] PCP - General Emergency Medicine 08/20/21 documented as of this encounter
--- OUTSIDE RECORDS SUMMARY | 2024-03-09 10:12 | XMS_ITS ---
Author Organization [facility] Address [facility] [place] [address] Care Team Providers Care Framing Mill Operator Name Role Phone Juan Dempsey MD Primary Care Provider [phone] Active Problems Problem Noted Date Diagnosed Date [...] treatments are documented for this patient in [facility]. Treatments may have been administered in another system. Lifetime Dose Tracking * Chemical Lifetime Dose Automatic Entry Manual Entr y DLP (Dose Length Product) 1,217 mGy-cm 1,217 mGy-cm 0 mGy-cm CTDI (CT Dose Index) Min 24.09 mGy 24.09 mGy 0 m Gy CTDI (CT Dose Index) Max 24.09 mGy 24.09 mGy 0 m Gy
--- OUTSIDE RECORDS SUMMARY | 2024-03-09 10:12 | XMS_ITS | Encounter Summary ---
Author Organization [facility] Address [facility] [place] [address] Care Team Providers Care Tableau Lead Name Role Phone Juan Dempsey MD Primary Care Provider [phone] Encounter Details Date Type Department Care Team (Latest Contact Info) Description 12/13/2023 Specialty [place] [phone] Sharda Lee, [facility] Refill Coordination - 28 day recurrence (cabozantinib [...] this encounter Progress Notes * Sharda Lee, [facility] - 12/13/2023 2:28 PM EDT Specialty Pharmacy [...] from the cancer center from dieticians to high school social science teacher. Administration, allergies, dosage, safe storage awayfrom pets [...] [facility] med list) No Pharmacist follow-up needed No [...] at the appointment and that [facility] is providing recommendations (summary at top of [...] [facility] Hematology Oncology [address] [place] [address] 03/29/2024 12:[address] [place] [address] Albino Bartholomew MD [facility] DR [place] [address] 04/05/2024 10:00 AM EST Office Visit [place]ology [place] [address] Albino Bartholomew MD [facility] [address] [place] [address] documented as of this encounter Goals Goal [...] kidney documented in this encounter Care Teams Tableau Lead Relationship Specialty Start Date End Date Juan Dempsey MD [address] [place] [address] PCP - General Emergency Medicine 08/20/21 documented as of this encounter
--- OUTSIDE RECORDS SUMMARY | 2024-03-09 10:12 | XMS_ITS | Encounter Summary ---
Author Organization [facility] Address [facility] [place] [address] Care Team Providers Care Family Resource Management Professor Name Role Phone Juan Dempsey MD Primary Care Provider [phone] Encounter Details Date Type Department Care Team (Late st Contact Info) Description 02/04/2024 Telephone [place]ematology [place] [address] Padmini Mckeon RN Social History Tobacco Use Types Packs/Day [...] encounter Miscellaneous Notes * Telephone Encounter - Padmnii Mckeon RN - 02/04/2024 3:25 PM EDT Pt seen in [facility] ED on 02/02 for abd pain. US showed cholelithiasis. Pain resolved while in ED so CT scan not done. T/C to patient to f/u on ED visit. He reports that LUQ pain is mild today (2) with Tylenol on a schedule. Denies any N/V, fever, GRISSOM. Elimination is normal. He is eating less with decreased appetite but is drinking large amounts of fluid. He stopped his cabo yesterday and stopped his doxy (prescribed by derm) a few days ago. Has reachedout to Dr Winter but has not heard back yet. He has had intermittent LUQ abd pain and has taken several short breaks from cabo. Dr [place] Cleveland scheduled to see his PCP next week. ED recommended seeing gen surg for possible brennan but he is not sure about that at this time and would like to confer with his docs. He will plan on holding the cabo until he hears back from Dr Bartholomew and is asking if his CT scanshould be scheduled sooner to investigate this recurrent pain. Will obtain Dr Augustin's input and let pt know. He will continue the tylenol for pain and is aware of when to seek medical attention. documented in this encounter Plan of Treatment Upcoming Encounters Date Type Department Care Team (Late st Contact Info) Description 03/29/2024 10:30 AM EST Laboratory Appointment Lab at [facility] Hematology Oncology [address] [place] [address] 03/29/2024 12:[address] [place] [address] Albino Bartholomew MD [facility] DR [place] [address] 04/05/2024 10:00 AM EST Office Visit [place]ology [place] [address] Albino Bartholomew MD [facility] DR [place] [address] documented as of this encounter Goals Goal Patient Goal Type Associated Problems Recent Progress Patient-Stated? Author Patient's specific desired goal: Patient Facing Action Plan No Sharda Lee, [facility] Note: Remain 95% or more adherent to oral chemotherapy over the next year as measured by refill history documented as of this encounter Visit Diagnoses Not on filedocumented in this encounter Care Teams Family Resource Management Professor Relationship Specialty Start Date End Date Juan Dempsey MD [address] [place] [address] PCP - General Emergency Medicine 08/20/21 documented as of this encounter
--- OUTSIDE RECORDS SUMMARY | 2024-03-09 10:12 | XMS_ITS | Encounter Summary ---
Author Organization [facility] [place] [address] Care Team Providers Care Railroad Engineer Name Role Phone Juan Dempsey MD Primary Care Provider [phone] Encounter Details Date Type Department Care Team (Latest Contact Info) Description 02/09/2024 12:30 PM EDT Laboratory Appointment Lab at [facility] Hematology Oncology [address] [place] [address] Metastatic renal cell carcinoma to lung, [...] 10:30 AM EST Laboratory Appointment Lab at [facility] Hematology Oncology [address] [place] [address] 03/29/2024 12:[address] [place] [address] Albino Bartholomew MD [facility] DR HEMATOLOGY [place] [address] 04/05/2024 10:00 AM EST Office Visit Hematology [place] [address] Albino Bartholomew MD [facility] DR HEMATOLOGY [place] [address] documented as of this encounter Goals Goal Patient Goal Type Associated Problems Recent Progress Patient-Stated? Author Patient's specific desired goal: Patient Facing Action Plan Sharda Lozano, [facility] Note: Remain 95% or more adherent to oral chemotherapy over the next year as measured by refill history documented as of this encounter Procedures Procedure Name Priority Date/Time Associated Diagnosis Comments CBC (WITH DIFF) Routine 02/09/2024 12:11 PM EDT Metastatic renal cell carcinoma to lung, unspecified laterality TSH Routine 02/09/2024 12:11 PM EDT Metastatic renal cell carcinoma to lung, unspecified laterality High risk medication use Abnormal thyroid function test T4, FREE Routine 02/09/2024 12:11 PM EDT Metastatic renal cell carcinoma to lung, unspecified laterality High risk medication use Abnormal thyroid function test COMPREHENSIVE METABOLIC PANEL Routine 02/09/2024 12:11 PM EDT Metastatic renal cell 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, unspecified laterality documented in this encounter Results * T4, free (02/09/2024 12:11 PM EDT) Free T4 1.57 0.93 - 1.70 ng/dL 02/09/2024 1:08 PM EDT [facility] Blood VENOUS BLOOD SPECIMEN / Unknown Venipuncture / Unknown 02/09/2024 12:11 PM EDT 02/09/2024 12:11 PM EDT Albino Bartholomew MD CHEMISTRY ORDERABLES [facility] [place] [address] * TSH (02/09/2024 12:11 PM EDT) Thyroid Stimulating Hormone 2.38 0.27 - 4.20 mcIU/mL 02/09/2024 1:08 PM EDT [facility] Blood VENOUS BLOOD SPECIMEN / Unknown Venipuncture / Unknown 02/09/2024 12:11 PM EDT 02/09/2024 12:11 PM EDT Albino Bartholomew MD CHEMISTRY ORDERABLES [facility] [place] [address] * (ABNORMAL) Comprehensive metabolic panel (02/09/2024 12:11 PM EDT) Glucose 69 65 - 199 mg/dL 02/09/2024 1:08 PM [facility] Comment:Glucose Concentratio n >=200 mg/dL plus symptoms is consistent with Diabetes Mellitus. Blood Urea Nitrogen 35(H) 10 - 20 mg/dL 02/09/2024 1:08 PM [facility] Creatinine 2.59(H) 0.80 - 1.50 mg/dL 02/09/2024 1:08 PM [facility] Sodium 137 135 - 145 mMol/L 02/09/2024 1:08 PM [facility] Potassium 4.5 3.5 - 5.0 mMol/L 02/09/2024 1:08 PM [facility] Chloride 102 98 - 107 mMol/L 02/09/2024 1:08 PM [facility] Carbon Dioxide 25 22 - 31 mMol/L 02/09/2024 1:08 PM [facility] Anion Gap 10 5 - 15 mMol/L 02/09/2024 1:08 PM [facility] Calcium 8.9 8.5 - 10.5 mg/dL 02/09/2024 1:08 PM [facility] Protein, Total 6.9 6.1 - 8.0 g/dL 02/09/2024 1:08 PM [facility] Albumin 4.2 3.2 - 5.2 g/dL 02/09/2024 1:08 PM [facility] Aspartate Aminotransferase 137(H) <=39 unit/L 02/09/2024 1:08 PM [facility] Alanine Aminotransferase 559(H) 0 - 55 unit/L 02/09/2024 1:08 PM [facility] Alkaline Phosphatase 536(H) 40 - 130 unit/L 02/09/2024 1:08 PM [facility] Bilirubin, Total 0.9 <=1.3 mg/dL 02/09/2024 1:08 PM EDT [facility] Est Glomerular Filtration Rate - Male 26 mL/min/1. 73 m?? 02/09/2024 1:08 PM EDT [facility] Comment: This patient's estimated [...] Calculator [employer] Fasting Status No 02/09/2024 1:08 PM EDT [facility] Blood VENOUS BLOOD SPECIMEN / Unknown Venipuncture / Unknown 02/09/2024 12:11 PM EDT 02/09/2024 12:11 PM EDT Albino Bartholomew MD CHEMISTRY ORDERABLES [facility] [place] [address] * (ABNORMAL) CBC (with Diff) (02/09/2024 12:11 PM EDT) White Blood Cell 7.59 4.00 - 9.50 x10(3)/mc L 02/09/2024 12:21 PM EDT [facility] Red Blood Cell 4.95 4.58 - 5.54 x10(6)/mc L 02/09/2024 12:21 PM EDT [facility] Hemoglobin 14.6 13.7 - 16.5 g/dL 02/09/2024 12:21 PM EDT [facility] Hematocrit 44.9 40.5 - 48.5 % 02/09/2024 12:21 PM [facility] Mean Cell Volume 90.7 82.9 - 93.1 fL 02/09/2024 12:21 PM [facility] Mean Cell Hemoglobin 29.5 27.5 - 32.1 pg 02/09/2024 12:21 PM [facility] Mean Cell Hemoglobin Concentration 32.5 32.0 - 35.7 g/dL 02/09/2024 12:21 PM [facility] Platelet 190 145 - 357 x10(3)/mc L 02/09/2024 12:21 PM [facility] Mean Platelet Volume 9.8 7.6 - 12.9 fL 02/09/2024 12:21 PM [facility] RDW Standard Deviation 54.0(H) 36.0 - 45.0 fL 02/09/2024 12:21 PM [facility] RDW coefficient of variation 16.2(H) 11.4 - 13.8 % 02/09/2024 12:21 PM [facility] NRBC% auto 0.0 % 02/09/2024 12:21 PM [facility] NRBC Absolute <0.01 <0.01 x10(3)/mc L 02/09/2024 12:21 PM [facility] Neutrophil % 63.4 % 02/09/2024 12:21 PM [facility] Neutrophil Absolute (ANC) - Automated 4.82 1.70 - 6.10 x10(3)/mc L 02/09/2024 12:21 PM [facility] Lymph % 24.0 % 02/09/2024 12:21 PM [facility] Lymph Absolute 1.82 0.90 - 3.20 x10(3)/mc L 02/09/2024 12:21 PM [facility] Monocyte % 7.8 % 02/09/2024 12:21 PM [facility] Monocyte Absolute 0.59 0.30 - 0.90 x10(3)/mc L 02/09/2024 12:21 PM EDT [facility] Eos % 3.3 % 02/09/2024 12:21 PM EDT [facility] Eos Absolute 0.25 0.00 - 0.40 x10(3)/mc L 02/09/2024 12:21 PM EDT [facility] Basophil % 1.2 % 02/09/2024 12:21 PM EDT [facility] Baso Absolute 0.09 0.00 - 0.10 x10(3)/mc L 02/09/2024 12:21 PM EDT [facility] Immature Gran % 0.3 % 12:21 PM EDT [facility] Immature Gran Absolute <0.04 0.00 - 0.04 x10(3)/mc L 02/09/2024 12:21 PM EDT [facility] Blood VENOUS BLOOD SPECIMEN / Unknown Venipuncture / Unknown 02/09/2024 12:11 PM EDT 02/09/2024 12:11 PM EDT Albino Bartholomew MD HEMATOLOGY ORDERABLE S [facility] [place] [address] documented in this encounter Visit Diagnoses Diagnosis Metastatic renal cell 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
--- OUTSIDE RECORDS SUMMARY | 2024-03-09 10:12 | XMS_ITS | Encounter Summary ---
Author Organization [facility] Address [facility] [place] [address] Care Team Providers Care Bookbinder Chief Name Role Phone Juan Dempsey MD Primary Care Provider [phone] Encounter Details Date Type Department Care Team (Latest Contact Info) Description 02/16/2024 Travel Social History Tobacco Use Types Packs/Day [...] 10:30 AM EST Laboratory Appointment Lab at [facility] [place] Hematology Oncology [address] [place] [address] 03/29/2024 12:[address] [place] [address] Albino Bartholomew MD [facility] [place] [address] 04/05/2024 10:00 AM EST Office Visit Hematology [place] [address] Albino Bartholomew MD [facility] [place] [address] documented as of this encounter Goals Goal [...] on filedocumented in this encounter Care Teams Bookbinder Chief Relationship Specialty Start Date End Date Juan Dempsey MD [address] [place] [address] PCP - General Emergency Medicine 08/20/21 documented as of this encounter
--- OUTSIDE RECORDS SUMMARY | 2024-03-09 10:12 | XMS_ITS | Encounter Summary ---
Author Organization [facility] Address [facility] [place] [address] Care Team Providers Care Compliance Attorney Name Role Phone Juan Dempsey MD Primary Care Provider [phone] Encounter Details Date Type Department Care Team (Latest Contact Info) Description 03/07/2024 Travel Social History Tobacco Use Types Packs/Day [...] 10:30 AM EST Laboratory Appointment Lab at [facility] Hematology Oncology [address] [place] [address] 03/29/2024 12:[address] [place] [address] Albino Bartholomew MD [facility] DR HEMATOLOGY [place] [address] 04/05/2024 10:00 AM EST Office Visit [place]ology [place] [address] Albino Bartholomew MD [facility] DR HEMATOLOGY [place] [address] documented as of this encounter Goals Goal Patient Goal Type Associated Problems Recent Progress Patient-Stated? Author Patient's specific desired goal: Patient Facing Action Plan No Sharda Lee, [facility] Note: Remain 95% or more adherent to oral chemotherapy over the next year as measured by refill history documented as of this encounter Visit Diagnoses Not on filedocumented in this encounter Care Teams Compliance Attorney Relationship Specialty Start Date End Date Juan Dempsey MD [address] [place] [address] PCP - General Emergency Medicine 08/20/21 documented as of this encounter
--- OUTSIDE RECORDS SUMMARY | 2024-03-09 10:12 | XMS_ITS | Encounter Summary ---
Author Organization [facility] Address [facility] [place] [address] Care Team Providers Care Downstream Biomanufacturing Technician Name Role Phone Juan Dempsey MD Primary Care Provider [phone] Encounter Details Date Type Department Care Team (Latest Contact Info) Description 02/08/2024 Travel Social History Tobacco Use Types Packs/Day [...] [facility] Hematology Oncology [address] [place] [address] 03/29/2024 12:[address] [place] [address] Albino Bartholomew MD [facility] [place] [address] 04/05/2024 10:00 AM EST Office Visit Hematology [place] [address] Albino Bartholomew MD [facility] [place] [address] documented as of this encounter Goals Goal Patient Goal Type Associated Problems Recent Progress Patient-Stated? Author Patient's specific desired goal: Patient Facing Action Plan No Sharda Lee, [facility] Note: Remain 95% or more adherent to oral chemotherapy over the next year as measured by refill history documented as of this encounter Visit Diagnoses Not on filedocumented in this encounter Care Teams Downstream Biomanufacturing Technician Relationship Specialty Start Date End Date Juan Dempsey MD [address] [place] [address] PCP - General Emergency Medicine 08/20/21 documented as of this encounter
--- OUTSIDE RECORDS SUMMARY | 2024-03-09 10:12 | XMS_ITS | Encounter Summary ---
Author Organization [facility] Address [facility] [place] [address] Care Team Providers Care Seismology Technical Officer Name Role Phone Juan Dempsey MD Primary Care Provider [phone] Encounter Details Date Type Department Care Team [...] [facility] Hematology Oncology [address] [place] [address] 03/29/2024 12:[address] [place] [place] [address] Albino Bartholomew MD [facility] DR HEMATOLOGY [place] [address] 04/05/2024 10:00 AM EST Office Visit [place]ology [place] [address] Albino Bartholomew MD [facility] DR HEMATOLOGY [place] [address] documented as of this encounter Visit Diagnoses Not on filedocumented in this encounter Care Teams Seismology Technical Officer Relationship Specialty Start Date End Date Juan Dempsey MD [address] [place] [address] PCP - General Emergency Medicine 08/20/21 documented as of this encounter
--- OUTSIDE RECORDS SUMMARY | 2024-03-09 10:13 | XMS_ITS | Encounter Summary ---
Author Organization [facility] Address [place] [address] Care Team Providers Care Certified Massage Therapist Name Role Phone Juan Dempsey MD Primary Care Provider [phone] Encounter Details Date Type Department Care Team (Latest Contact Info) Description 10/08/2023 10:39 AM EDT - 10/08/2023 11:59 PM EDT Hospital Encounter Hematology [place] [phone] Metastatic renal cell carcinoma to lung, unspecified [...] mouth daily. 30 tablet 5 08/26/2023 03/06/2024 potassium chloride ER (Klor-Con M) 10 mEq [...] 10:30 AM EST Laboratory Appointment Lab at [facility] [place] [address] [place] [address] 03/29/2024 12:[address] [place] [address] Albino Bartholomew MD [facility] [address] [place] [address] 04/05/2024 10:00 AM EST Office Visit Hematology [place] [address] Albino Bartholomew MD [facility] [address] [place] [address] documented as of this encounter Procedures Procedure [...] EDT) Glucose 71 65 - 199 mg/dL [facility] Comment:Diabetes: >=200 mg/d L plus symptoms Blood Urea Nitrogen 22(H) 10 - 20 mg/dL [facility] Creatinine 1.55(H) 0.80 - 1.50 mg/dL [facility] Sodium 143 135 - 145 mmol/L [facility] Potassium 4.1 3.5 - 5.0 mmol/L [facility] Comment: Please note: ??Patients with WBC >100,000 may have falsely elevated Potassium levels. ??For accurate Potassium quantification in these patients send serum separator tube (gold top) for subsequent determinations. ??Contact the Clinical Chemistry Laboratory if there are any questions. Chloride 106 98 - 107 mmol/L [facility] Carbon Dioxide 25 22 - 31 mmol/L [facility] Anion Gap 12 5 - 15 mmol/L [facility] Calcium 9.7 8.5 - 10.5 mg/dL [facility] Protein, Total 6.9 6.1 - 8.0 g/dL [facility] Albumin 4.1 3.2 - 5.2 g/dL [facility] Aspartate Aminotransferase 28 0 - 39 unit/L [facility] Alanine Aminotransferase 31 0 - 55 unit/L [facility] Alkaline Phosphatase 154(H) 40 - 130 unit/L [facility] Bilirubin, Total 0.3 0.2 - 1.3 mg/dL [facility] Est Glomerular Filtration Rate 48(L) >=60 mL/min/1. 73 m?? [facility] Comment: This patient's estimated [...] Bartholomew MD CHEMISTRY ORDERABLES Performing Organization Address City/State/[facility] Co de Phone Number [facility] [place] [address] * Differential, Automated (10/08/2023 10:50 AM EDT) Neutrophil % 63.2 % [facility] Neutrophil Absolute 4.83 1.70 - 6.10 x10(3)/[facility] Lymph % 22.7 % [facility] Lymphocytes Abs 1.7 0.9 - 3.2 x10(3)/[facility] Monocyte % 7.0 % [facility] Monocyte Abs 0.5 0.3 - 0.9 x10(3)/[facility] Eos % 5.7 % [facility] Eosinophils Abs 0.4 0.0 - 0.4 x10(3)/[facility] Basophil % 1.0 % [facility] Baso Absolute 0.1 0.0 - 0.1 x10(3)/[facility] Immature Gran % 0.40 % [facility] Comment: Immature granulocytes(IG's)percentage and absolute count will include metamyelocytes, myelocytes, and promyelocytes. Blood smears from CBCs yielding IG's will be scanned manually for concordance. If this scan disagrees with the automated IG or if promyelocytes are noted, a manual differential will be performed. Immature Gran Absolute 0.03 0.00 - 0.04 x10(3)/mcL [facility] Blood 10/08/2023 10:5 0 AM EDT 10/08/2023 11:07 AM EDT Narrative Resulting Agency Comment Spec In Lab Kelin Carlos APRN HEMATOLOGY ORDERAB LES [facility] [place] [address] * (ABNORMAL) Hemogram (10/08/2023 10:50 AM EDT) White Blood Cell 7.7 4.0 - 9.5 x10(3)/mc L [facility] Red Blood Cell 4.70 4.58 - 5.54 x10(6)/mc L [facility] Hemoglobin 14.4 13.7 - 16.5 g/dL [facility] Hematocrit 43.6 40.5 - 48.5 % [facility] Mean Cell Volume 92.8 82.9 - 93.1 fL [facility] Mean Cell Hemoglobin 30.6 27.5 - 32.1 pg [facility] Mean Cell Hemoglobin Concentration 33.0 32.0 - 35.7 g/dL [facility] Platelet 186 145 - 357 x10(3)/mc L [facility] RDW Standard Deviation 49.9(H) 36.0 - 45.0 fL [facility] RDW coefficient of variation 14.6(H) 11.4 - 13.8 % [facility] Mean Platelet Volume 9.5 7.6 - 12.9 fL [facility] NRBC% auto 0.0 % [facility] NRBC Absolute 0.000 0.000 - 0.000 x10(3)/mc L [facility] Blood 10/08/2023 10:5 0 AM EDT 10/08/2023 11:07 AM EDT Narrative Resulting Agency Comment Spec In Lab Kelin Carlos RAW CHEESE WORKER HEMATOLOGY ORDERAB LES Performing Organization Address [facility] de Phone Number [facility] [place] [address] * T4, free (10/08/2023 10:50 AM EDT) Free T4 1.41 0.93 - 1.70 ng/dL [facility] Comment: Reference Interval (ng/dL): Females: ??First Trimester: 0.97-1.68 ??Second Trimester: 0.77-1.51 ??Third Trimester: 0.77-1.49 Blood 10/08/2023 10:5 0 AM EDT 10/08/2023 11:07 AM EDT Narrative Resulting Agency Comment Spec In Lab Kelin Carlos APRN CHEMISTRY ORDERABL ES Performing Organization Address [facility] Phone Number [facility] [address] * TSH (10/08/2023 10:50 AM EDT) Thyroid Stimulating Hormone 3.50 0.27 - 4.20 mcIU/mL [facility] Comment: Reference Interval (mcIU/mL): Females: ??First Trimester: 0.23-3.88 ??Second Trimester: 0.22-3.90 ??Third Trimester: 0.44-4.66 Blood 10/08/2023 10:5 0 AM EDT 10/08/2023 11:07 AM EDT Narrative Resulting Agency Comment Spec In Lab Kelin Carlos RAW CHEESE WORKER [place] [address] documented in this encounter Visit Diagnoses Diagnosis Metastatic renal cell carcinoma to lung, unspecified laterality High risk medication use Encounter for long-term (current) use of other medications documented in this encounter Care Teams Certified Massage Therapist Relationship Specialty Start Date End Date Juan Dempsey MD [address] [place] [address] PCP - General Emergency Medicine 08/20/21 documented as of this encounter
--- OUTSIDE RECORDS SUMMARY | 2024-03-09 10:13 | XMS_ITS | Encounter Summary ---
Author Organization [facility] Address [facility] [place] [address] Care Team Providers Care Quality Assurance Lead Name Role Phone Juan Dempsey MD Primary Care Provider [phone] Encounter Details Date Type Department Care Team [...] [facility] [place] Oncology [address] [place] [address] 03/29/2024 12:[address] [place] [address] Albino Bartholomew MD [facility] [address] [place] [address] 04/05/2024 10:00 AM EST Office Visit [place] [address] Albino Bartholomew MD [facility] DR [place] [address] documented as of this encounter Visit Diagnoses Not on filedocumented in this encounter Care Teams Quality Assurance Lead Relationship Specialty Start Date End Date Juan Dempsey MD [address] [place] [address] PCP - General Emergency Medicine 08/20/21 documented as of this encounter
--- OUTSIDE RECORDS SUMMARY | 2024-03-09 10:13 | XMS_ITS | Encounter Summary ---
Author Organization [facility] Address [facility] [place] [address] Care Team Providers Care Willow Machine Operator Name Role Phone Juan Dempsey MD Primary Care Provider [phone] Encounter Details Date Type Department Care Team [...] [facility] Hematology Oncology [address] [place] [address] 03/29/2024 12:[address] [place] [address] Albino Bartholomew MD [facility] DR [place] [address] 04/05/2024 10:00 AM EST Office Visit Hematology [place] [address] Albino Bartholomew MD [facility] DR [place] [address] documented as of this encounter Visit Diagnoses Not on filedocumented in this encounter Care Teams Willow Machine Operator Relationship Specialty Start Date End Date Juan Dempsey MD [address] [place] [address] PCP - General Emergency Medicine 08/20/21 documented as of this encounter
--- OUTSIDE RECORDS SUMMARY | 2024-03-09 10:13 | XMS_ITS | Encounter Summary ---
Author Organization [facility] Address [facility] [place] [address] Care Team Providers Care Package Pick Up Name Role Phone Juan Dempsey MD Primary [...] 10:30 AM EST Laboratory Appointment Lab at [facility] Hematology Oncology [address] [place] [address] 03/29/2024 12:[address] [place] [address] Albino Bartholomew MD [facility] DR [place] [address] 04/05/2024 10:00 AM EST Office Visit [place]ology [place] [address] Albino Bartholomew MD [facility] DR [place] [address] documented as of this encounter Visit Diagnoses Not on filedocumented in this encounter Care Teams Package Pick Up Relationship Specialty Start Date End Date Juan Dempsey MD [address] [place] [address] PCP - General Emergency Medicine 08/20/21 documented as of this encounter
--- OUTSIDE RECORDS SUMMARY | 2024-03-09 10:13 | XMS_ITS | Encounter Summary ---
Author Organization [facility] Address [facility] [place] [address] Care Team Providers Care Flash Ranging Crewmember Name Role Phone Juan Dempsey MD Primary Care Provider [phone] Encounter Details Date Type Department Care Team (Latest Contact Info) Description 10/07/2023 Specialty [place] [phone] Marisabel Soto, [facility] Refill Coordination - 28 day recurrence [...] this encounter Progress Notes * Tru Prakash [facility] - 10/07/2023 8:57 AM EDT Images from the original note were not included. Clinical Management Plan: Refill Specialty Pharmacy Consultation; Tur Prakash [facility] Comprehensive Medication Management (CMM) Mr. [...] Standard Peanut Medication Reconciliation Discrepancies (compared to [facility] med list) -none Review Flowsheet 10/07/2023 [...] at the appointment and that [facility] is providing recommendations (summary located at top of note) for provider review and follow up. Tru Prakash RPH 10/07/23 11:23 AM documented in this encounter Plan of Treatment Upcoming Encounters Date Type Department Care Team (Late st Contact Info) Description 03/29/2024 10:30 AM EST Laboratory Appointment Lab [place] [facility] [place] [address] [place] [address] 03/29/2024 12:[address] [place] [place] [address] Albino Bartholomew MD [facility] DR [place] [address] 04/05/2024 10:00 AM EST Office Visit [place]ology [place] [address] Albino Bartholomew MD [facility] DR [place] [address] documented as of this encounter Visit Diagnoses Not on filedocumented in this encounter Care Teams Flash Ranging Crewmember Relationship Specialty Start Date End Date Juan Dempsey MD [address] [place] [address] PCP - General Emergency Medicine 08/20/21 documented as of this encounter
--- OUTSIDE RECORDS SUMMARY | 2024-03-09 10:13 | XMS_ITS | Encounter Summary ---
Author Organization [facility] Address [facility] [place] [address] Care Team Providers Care Grease Monkey Name Role Phone Juan Dempsey MD Primary Care Provider [phone] Encounter Details Date Type Department Care Team (Late st Contact Info) Description 07/05/2023 Telephone H[place]ology [place] [address] Daxa Arriola RN Social History [...] a refill, 10 days remaining. Going to [place] for 2 weeks in August, wants to make sure he has enough. Discussed planning ahead if he will be out to either get a supply early or have pharmacy deliver to pt in [place]. Pharmacy updated and requested refill on pt's behalf. documented in this encounter Plan of Treatment Upcoming Encounters Date Type Department Care Team (Late st Contact Info) Description 03/29/2024 10:30 AM EST Laboratory Appointment Lab [place] [facility] [place] [address] [place] [address] 03/29/2024 12:[address] [place] [place] [address] Albino Bartholomew MD [facility] DR [place] [address] 04/05/2024 10:00 AM EST Office Visit [place]ematology [place] [address] Albino Bartholomew MD [facility] DR [place] [address] documented as of this encounter Visit Diagnoses Not on filedocumented in this encounter Care Teams Grease Monkey Relationship Specialty Start Date End Date Juan Dempsey MD [address] [place] [address] PCP - General Emergency Medicine 08/20/21 documented as of this encounter
--- OUTSIDE RECORDS SUMMARY | 2024-03-09 10:13 | XMS_ITS | Encounter Summary ---
Author Organization [facility] Address [facility] [place] [address] Care Team Providers Care Sound Mixer Name Role Phone Juan Dempsey MD Primary Care Provider [phone] Reason for Visit * Reason Comments Medication Refill Encounter Details Date Type Department Care Team (Late st Contact Info) Description 07/07/2023 Specialty [place] [phone] Tru Prakash, [facility] Social History Tobacco Use Types Packs/Day Years [...] Progress Notes * Tru Prakash [facility] - 07/07/2023 8:46 AM EST Clinical Management Plan: Refill Specialty Pharmacy Consultation; Tru Prakash [facility] Comprehensive Medication Management (CMM) Cristofer Tenorio is [...] Standard Peanut Medication Reconciliation Discrepancies (compared to [facility] med list) -none Specialty Pharmacy Refill [...] [facility] Hematology Oncology [address] [place] [address] 03/29/2024 12:[address] [place] [address] Albino Bartholomew MD [facility] DR [place] [address] 04/05/2024 10:00 AM EST Office Visit [place]ology [place] [address] Albino Bartholomew MD [facility] DR [place] [address] documented as of this encounter Visit Diagnoses Not on filedocumented in this encounter Care Teams Sound Mixer Relationship Specialty Start Date End Date Juan Dempsey MD [address] [place] [address] PCP - General Emergency Medicine 08/20/21 documented as of this encounter
--- OUTSIDE RECORDS SUMMARY | 2024-03-09 10:13 | XMS_ITS | Encounter Summary ---
Author Organization [facility] Address [facility] [place] [address] Care Team Providers Care Cod Clerk Name Role Phone Juan Dempsey MD Primary Care Provider [phone] Encounter Details Date Type Department Care Team (Late st Contact Info) Description 08/19/2023 Orders Only [place] [address] Kelin Carlos, FUNERAL ASSISTANT [address] [place] [address] DR HEMATOLOGY AND ONCOLOGY [place], [place] [id number] Social History Tobacco Use Types Packs/Day Years [...] 10:30 AM EST Laboratory Appointment Lab at [facility] Hematology Oncology [address] [place] [address] 03/29/2024 12:[address] [place] [address] Albino Bartholomew MD [facility] [address] [place] [address] 04/05/2024 10:00 AM EST Office Visit Hematology [place] [address] Albino Bartholomew MD [facility] [address] [place] [address] documented as of this encounter Visit Diagnoses Not on filedocumented in this encounter Care Teams Cod Clerk Relationship Specialty Start Date End Date Juan Dempsey MD [address] [place] [address] PCP - General Emergency Medicine 08/20/21 documented as of this encounter
--- OUTSIDE RECORDS SUMMARY | 2024-03-09 10:13 | XMS_ITS | Encounter Summary ---
Author Organization [facility] Address [facility] [place] [address] Care Team Providers Care Film Historian Name Role Phone Juan Dempsey MD Primary Care Provider [phone] Encounter Details Date Type Department Care Team (Latest Contact Info) Description 07/07/2023 8:56 AM EST - 07/07/2023 11:59 PM EST Hospital Encounter Hematology [place] [phone] Metastatic renal cell carcinoma to lung, unspecified [...] 10:30 AM EST Laboratory Appointment Lab at [facility] Hematology Oncology [address] [place] [address] 03/29/2024 12:[address] [place] [phone] Albino aBrtholomew MD [facility] [address] HEMATOLOGY [place] [address] 04/05/2024 10:00 AM EST Office Visit Hematology [place] [phone] Albino Bartholomew MD [facility] [address] HEMATOLOGY [place] [address] documented as of this encounter Procedures Procedure [...] 9:01 AM EST) Neutrophil % 71.9 % [facility] Neutrophil Absolute 6.26(H) 1.70 - 6.10 x10(3)/ L [facility] Lymph % 18.5 % [facility] Lymphocytes Abs 1.6 0.9 - 3.2 x10(3)/mc L [facility] Monocyte % 3.8 % [facility] Monocyte Abs 0.3 0.3 - 0.9 x10(3)/[facility] Eos % 4.6 % [facility] Eosinophils Abs 0.4 0.0 - 0.4 x10(3)/[facility] Basophil % 1.0 % [facility] Baso Absolute 0.1 0.0 - 0.1 x10(3)/[facility] Immature Gran % 0.20 % [facility] Comment: Immature granulocytes(IG's)percentage and absolute count will include metamyelocytes, myelocytes, and promyelocytes. Blood smears from CBCs yielding IG's will be scanned manually for concordance. If this scan disagrees with the automated IG or if promyelocytes are noted, a manual differential will be performed. Immature Gran Absolute 0.02 0.00 - 0.04 x10(3)/[facility] Blood 07/07/2023 9:01 AM EST 07/07/2023 9:15 AM EST Narrative Resulting Agency Comment Spec In Lab Lulu Jolley APRN HEMATOLOGY SUNITHA SERRANO Performing Organization Address City/State/[facility] Co de Phone Number [facility] [place] [address] * (ABNORMAL) Hemogram (07/07/2023 9:01 AM EST) White Blood Cell 8.7 4.0 - 9.5 x10(3)/[facility] Red Blood Cell 4.40(L) 4.58 - 5.54 x10(6)/[facility] Hemoglobin 13.6(L) 13.7 - 16.5 g/dL [facility] Hematocrit 40.4(L) 40.5 - 48.5 % [facility] Mean Cell Volume 91.8 82.9 - 93.1 fL [facility] Mean Cell Hemoglobin 30.9 27.5 - 32.1 pg [facility] Mean Cell Hemoglobin Concentration 33.7 32.0 - 35.7 g/dL [facility] Platelet 201 145 - 357 x10(3)/mc L [facility] RDW Standard Deviation 48.4(H) 36.0 - 45.0 fL [facility] RDW coefficient of variation 14.6(H) 11.4 - 13.8 % [facility] Mean Platelet Volume 9.5 7.6 - 12.9 fL [facility] NRBC% auto 0.0 % [facility] NRBC Absolute 0.000 0.000 - 0.000 x10(3)/mc L [facility] Blood 07/07/2023 9:01 AM EST 07/07/2023 9:15 AM EST Narrative Resulting Agency Comment Spec In Lab Lulu Jolley APRN HEMATOLOGY ORDE RABLES Performing Organization Address City/[facility] Co de Phone Number [facility] [place] [address] * T4, free (07/07/2023 9:01 AM EST) Free T4 1.47 0.93 - 1.70 ng/dL [facility] Comment: Reference Interval (ng/dL): Females: ??First Trimester: 0.97-1.68 ??Second Trimester: 0.77-1.51 ??Third Trimester: 0.77-1.49 Blood 07/07/2023 9:01 AM EST 07/07/2023 9:14 AM EST Narrative Resulting Agency Comment Spec In Lab Lulu Jolley APRN CHEMISTRY ORDER RADHA Performing Organization Address City/[facility] Co de Phone Number [facility] [place] [address] * TSH (07/07/2023 9:01 AM EST) Thyroid Stimulating Hormone 3.28 0.27 - 4.20 mcIU/mL [facility] Comment: Reference Interval (mcIU/mL): Females: ??First Trimester: 0.23-3.88 ??Second Trimester: 0.22-3.90 ??Third Trimester: 0.44-4.66 Blood 07/07/2023 9:01 AM EST 07/07/2023 9:14 AM EST Narrative Resulting Agency Comment Spec In Lab Lulu Jolley APRN CHEMISTRY ORDER RADHA [facility] [place] [address] * (ABNORMAL) Comprehensive metabolic panel (non-fasting) (07/07/2023 9:01 AM EST) Glucose 164 65 - 199 mg/dL [facility] Comment:Diabetes: >=200 mg/d L plus symptoms Blood Urea Nitrogen 19 10 - 20 mg/dL [facility] Creatinine 1.60(H) 0.80 - 1.50 mg/dL [facility] Sodium 141 135 - 145 mmol/L [facility] Potassium 3.7 3.5 - 5.0 mmol/L [facility] Comment: Please note: ??Patients with WBC >100,000 may have falsely elevated Potassium levels. ??For accurate Potassium quantification in these patients send serum separator tube (gold top) for subsequent determinations. ??Contact the Clinical Chemistry Laboratory if there are any questions. Chloride 104 98 - 107 mmol/L [facility] Carbon Dioxide 28 22 - 31 mmol/L [facility] Anion Gap 9 5 - 15 mmol/L [facility] Calcium 9.1 8.5 - 10.5 mg/dL [facility] Protein, Total 6.6 6.1 - 8.0 g/dL [facility] Albumin 4.0 3.2 - 5.2 g/dL [facility] Aspartate Aminotransferase 21 0 - 39 unit/L [facility] Alanine Aminotransferase 31 0 - 55 unit/L [facility] Alkaline Phosphatase 149(H) 40 - 130 unit/L [facility] Bilirubin, Total 0.4 0.2 - 1.3 mg/dL [facility] Est Glomerular Filtration Rate 47(L) >=60 mL/min/1. 73 m?? [facility] Comment: This patient's estimated GFR [...] Lab Lulu Jolley APRN CHEMISTRY ORDER RADHA [facility] [place] [address] documented in this encounter Visit Diagnoses Diagnosis Metastatic renal cell carcinoma to lung, unspecified laterality documented in this encounter Care Teams Film Historian Relationship Specialty Start Date End Date Juan Dempsey MD [address] [place] [address] PCP - General Emergency Medicine 08/20/21 documented as of this encounter
--- OUTSIDE RECORDS SUMMARY | 2024-03-09 10:13 | XMS_ITS | Encounter Summary ---
Author Organization [facility] Address [facility] [place] [address] Care Team Providers Care Lead Electrician Name Role Phone Juan Dempsey MD Primary Care Provider [phone] Reason for Visit * Reason Comments Medication Refill Encounter Details Date Type Department Care Team (Late st Contact Info) Description 08/17/2023 Specialty [place] [address] Sharda Lee, [facility] Social History Tobacco Use Types Packs/Day Years [...] this encounter Progress Notes * Sharda Lee [facility] - 08/17/2023 11:25 AM EDT Clinical Management Plan: Refill Specialty Pharmacy Consultation; Sharda Lee [facility] Comprehensive Medication Management (CMM) Cristofer Oh Anamarilynnaida [...] Standard Peanut Medication Reconciliation Discrepancies (compared to [facility] med list) No Specialty Pharmacy [...] 10:30 AM EST Laboratory Appointment Lab at [facility] Hematology Oncology [address] [place] [address] 03/29/2024 12:[address] [place] [place] [address] Albino Bartholomew MD [facility] [address] [place] [address] 04/05/2024 10:00 AM EST Office Visit [place]ematology [place] [address] Albino Bartholomew MD [facility] [address] [place] [address] documented as of this encounter Visit Diagnoses Not on filedocumented in this encounter Care Teams Lead Electrician Relationship Specialty Start Date End Date Juan Dempsey MD [address] [place] [address] PCP - General Emergency Medicine 08/20/21 documented as of this encounter
--- OUTSIDE RECORDS SUMMARY | 2024-03-09 10:13 | XMS_ITS | Encounter Summary ---
Author Organization [facility] Address [facility] [place] [address] Care Team Providers Care Cylinder Die Machine Helper Name Role Phone Juan Dempsey MD Primary Care Provider [phone] Encounter Details Date Type Department Care Team (Latest Contact Info) Description 11/22/2023 Specialty [place] [phone] Marci Angel, DIRECTOR OF APPLICATION DEVELOPMENT Refill Coordination - 28 day recurrence (cabozantinib [...] Standard Peanut Medication Reconciliation Discrepancies (compared to [facility] med list) No Review Flowsheet 11/22/2023 8:36 [...] [facility] Hematology Oncology [address] [place] [address] 03/29/2024 12:[address] [place] [phone] Albino Bartholomew MD [facility] [address] [place] [address] 04/05/2024 10:00 AM EST Office Visit [place]ematology [place] [address] Albino Bartholomew MD [facility] [address] [place] [address] documented as of this encounter Visit Diagnoses Not on filedocumented in this encounter Care Teams Cylinder Die Machine Helper Relationship Specialty Start Date End Date Juan Dempsey MD [address] [place] [address] PCP - General Emergency Medicine 08/20/21 documented as of this encounter
--- OUTSIDE RECORDS SUMMARY | 2024-03-09 10:13 | XMS_ITS | Encounter Summary ---
Author Organization [facility] [place] [address] Care Team Providers Care Rfid Developer Name Role Phone Juan Dempsey MD Primary Care Provider [phone] Encounter Details Date Type Department Care Team (Latest Contact Info) Description 12/08/2023 11:49 AM EDT - 12/08/2023 11:59 PM EDT Hospital Encounter Hematology [place] [phone] Metastatic renal cell carcinoma to lung, unspecified [...] cell carcinoma 20 tablet 5 11/15/2023 02/16/2024 potassium chloride ER (Klor-Con M) 10 mEq ER micro-encapsulated crystal tablet Take 1 tablet by mouth 2 times daily. 60 tablet 1 11/02/2023 01/18/2024 levothyroxine (Synthroid) 75 mcg tablet Take 1 tablet by mouth daily. 30 tablet 5 08/26/2023 03/06/2024 documented as of this encounter Plan of Treatment Upcoming Encounters Date Type Department Care Team (Late st Contact Info) Description 03/29/2024 10:30 AM EST Laboratory Appointment Lab at [facility] Hematology Oncology [address] [place] [address] 03/29/2024 12:[address] [place] [address] Albino Bartholomew MD [facility] [address] [place] [address] 04/05/2024 10:00 AM EST Office Visit Hematology [place] [address] Albino Bartholomew MD [facility] [address] [place] [address] documented as of this encounter Procedures Procedure [...] - 1.07 mMol/L 12/08/2023 4:48 PM EDT [facility] Blood VENOUS BLOOD SPECIMEN / Unknown Venipuncture / Unknown 12/08/2023 11:56 AM EDT 12/08/2023 11:56 AM EDT Mitali Griffiths APRN CHEMISTRY ORDERAB LES [facility] [place] [address] * T4, free (12/08/2023 11:56 AM EDT) Free T4 1.58 0.93 - 1.70 ng/dL 12/08/2023 12:43 PM EDT [facility] Blood VENOUS BLOOD SPECIMEN / Unknown Venipuncture / Unknown 12/08/2023 11:56 AM EDT 12/08/2023 11:56 AM EDT Albino Bartholomew MD CHEMISTRY ORDERABLES [facility] [place] [address] * TSH (12/08/2023 11:56 AM EDT) Thyroid Stimulating Hormone 3.07 0.27 - 4.20 mcIU/mL 12/08/2023 12:43 PM EDT [facility] Blood VENOUS BLOOD SPECIMEN / Unknown Venipuncture / Unknown 12/08/2023 11:56 AM EDT 12/08/2023 11:56 AM EDT Albino Bartholomew MD CHEMISTRY ORDERABLES [facility] [place] [address] * (ABNORMAL) Comprehensive metabolic panel (12/08/2023 11:56 AM EDT) Glucose 80 65 - 199 mg/dL 12/08/2023 12:43 PM EDT [facility] Comment:Glucose Concentratio n >=200 mg/dL plus symptoms is consistent with Diabetes Mellitus. Blood Urea Nitrogen 22(H) 10 - 20 mg/dL 12/08/2023 12:43 PM EDT [facility] Creatinine 1.52(H) 0.80 - 1.50 mg/dL 12/08/2023 12:43 PM EDT [facility] Sodium 141 135 - 145 mMol/L 12/08/2023 12:43 PM EDT [facility] Potassium 4.0 3.5 - 5.0 mMol/L 12/08/2023 12:43 PM EDT [facility] Chloride 104 98 - 107 mMol/L 12/08/2023 12:43 PM EDT [facility] Carbon Dioxide 29 22 - 31 mMol/L 12/08/2023 12:43 PM EDT [facility] Anion Gap 8 5 - 15 mMol/L 12/08/2023 12:43 PM EDT [facility] Calcium 9.5 8.5 - 10.5 mg/dL 12/08/2023 12:43 PM EDT [facility] Protein, Total 6.8 6.1 - 8.0 g/dL 12/08/2023 12:43 PM EDT [facility] Albumin 4.0 3.2 - 5.2 g/dL 12/08/2023 12:43 PM EDT [facility] Aspartate Aminotransferase 23 <=39 unit/L 12/08/2023 12:43 PM [facility] Alanine Aminotransferase 29 0 - 55 unit/L 12/08/2023 12:43 PM [facility] Alkaline Phosphatase 153(H) 40 - 130 unit/L 12/08/2023 12:43 PM [facility] Bilirubin, Total 0.3 <=1.3 mg/dL 12/08/2023 12:43 PM [facility] Est Glomerular Filtration Rate - Male 50 mL/min/1. 73 m?? 12/08/2023 12:43 PM [facility] Comment: This [...] Foundation Fasting Status No 12/08/2023 12:43 PM [facility] Blood VENOUS BLOOD SPECIMEN / Unknown Venipuncture / Unknown 12/08/2023 11:56 AM EDT 12/08/2023 11:56 AM EDT Albino Bartholomew MD CHEMISTRY ORDERABLES [facility] [place] [address] * (ABNORMAL) CBC (with Diff) (12/08/2023 11:56 AM EDT) White Blood Cell 8.63 4.00 - 9.50 x10(3)/mc L 12/08/2023 12:11 PM EDT [facility] Red Blood Cell 4.97 4.58 - 5.54 x10(6)/mc L 12/08/2023 12:11 PM [facility] Hemoglobin 14.6 13.7 - 16.5 g/dL 12/08/2023 12:11 PM [facility] Hematocrit 45.3 40.5 - 48.5 % 12/08/2023 12:11 PM [facility] Mean Cell Volume 91.1 82.9 - 93.1 fL 12/08/2023 12:11 PM [facility] Mean Cell Hemoglobin 29.4 27.5 - 32.1 pg 12/08/2023 12:11 PM [facility] Mean Cell Hemoglobin Concentration 32.2 32.0 - 35.7 g/dL 12/08/2023 12:11 PM [facility] Platelet 202 145 - 357 x10(3)/mc L 12/08/2023 12:11 PM [facility] Mean Platelet Volume 9.7 7.6 - 12.9 fL 12/08/2023 12:11 PM [facility] RDW Standard Deviation 48.9(H) 36.0 - 45.0 fL 12/08/2023 12:11 PM [facility] RDW coefficient of variation 14.7(H) 11.4 - 13.8 % 12/08/2023 12:11 PM [facility] NRBC% auto 0.0 % 12/08/2023 12:11 PM [facility] NRBC Absolute 0.00 0.00 - 0.00 x10(3)/mc L 12/08/2023 12:11 PM [facility] Neutrophil % 69.0 % 12/08/2023 12:11 PM [facility] Neutrophil Absolute (ANC) - Automated 5.96 1.70 - 6.10 x10(3)/mc L 12/08/2023 12:11 PM [facility] Lymph % 20.5 % 12/08/2023 12:11 PM EDT [facility] Lymph Absolute 1.77 0.90 - 3.20 x10(3)/mc L 12/08/2023 12:11 PM EDT [facility] Monocyte % 5.6 % 12/08/2023 12:11 PM EDT [facility] Monocyte Absolute 0.48 0.30 - 0.90 x10(3)/mc L 12/08/2023 12:11 PM EDT [facility] Eos % 3.2 % 12/08/2023 12:11 PM EDT [facility] Eos Absolute 0.28 0.00 - 0.40 x10(3)/mc L 12/08/2023 12:11 PM EDT [facility] Basophil % 1.2 % 12/08/2023 12:11 PM EDT [facility] Baso Absolute 0.10 0.00 - 0.10 x10(3)/mc L 12/08/2023 12:11 PM EDT [facility] Immature Gran % 0.5 % 12:11 PM EDT [facility] Immature Gran Absolute 0.04 0.00 - 0.04 x10(3)/mc L 12/08/2023 12:11 PM EDT [facility] Blood VENOUS BLOOD SPECIMEN / Unknown Venipuncture / Unknown 12/08/2023 11:56 AM EDT 12/08/2023 11:56 AM EDT Albino Bartholomew MD HEMATOLOGY ORDERABLE S [facility] [place] [address] documented in this encounter Visit Diagnoses Diagnosis Metastatic renal cell carcinoma to lung, unspecified laterality High risk medication use Encounter for long-term (current) use of other medications Abnormal thyroid function test Nonspecific abnormal results of thyroid function study Renal cell carcinoma of left kidney documented in this encounter Care Teams Rfid Developer Relationship Specialty Start Date End Date Juan Dempsey MD [address] [place] [address] PCP - General Emergency Medicine 08/20/21 documented as of this encounter
--- OUTSIDE RECORDS SUMMARY | 2024-03-09 10:13 | XMS_ITS | Encounter Summary ---
Author Organization [facility] Address [facility] [place] [address] Care Team Providers Care Lesson Instructor Name Role Phone Juan Dempsey MD Primary Care Provider [phone] Encounter Details Date Type Department Care Team [...] AM EST Laboratory Appointment Lab at [facility] Hematology Oncology [address] [place] [address] 03/29/2024 12:[address] [place] [address] Albino Bartholomew MD [facility] DR [place] [address] 04/05/2024 10:00 AM EST Office Visit [place]ology [place] [address] Albino Bartholomew MD [facility] DR [place] [address] documented as of this encounter Visit Diagnoses Not on filedocumented in this encounter Care Teams Lesson Instructor Relationship Specialty Start Date End Date Juan Dempsey MD [address] [place] [address] PCP - General Emergency Medicine 08/20/21 documented as of this encounter
--- OUTSIDE RECORDS SUMMARY | 2024-03-09 10:13 | XMS_ITS | Encounter Summary ---
Author Organization [facility] Address [facility] [place] [address] Care Team Providers Care [employer] Dean Name Role Phone Juan Dempsey MD Primary Care Provider [phone] Reason for Referral * Diagnostic Test (Routine) - Closed Specialty Diagnoses / Procedures Referred By Contac t Referred To Contact Radiology Diagnoses Metastatic renal cell carcinoma to lung, unspecified laterality Procedures CT Chest Abdomen Pelvis w Contrast (Generic) Kelin Carlos APRN [address] [place] [address] [place] [address] [facility] [place] [address] Referral ID Status Reason Start Date Expiration Date V isits Requested Visits Authorized [id number] Closed Specialty Service Requested 08/24/2023 02/22/2025 1 1 Encounter Details Date Type Department Care Team (Late st Contact Info) Description 08/24/2023 11:30 AM EDT TH Visit (TeleHealth) Hematology [place] [address] Kelin Carlos APRN [address] [place] [address] [place] [address] Metastatic renal cell carcinoma to lung, unspecified [...] from the original note were not included. [facility] Oncology History of Present Illness: Mr. Tenorio [...] negative. They are scheduled to go to [place] on 08/31 to visit dtr who is [...] in the abdomen and pelvis. 10/20/21 CXR ([facility]): 10/16/21: IMPRESSION 1. Unexpected finding: New [...] taper. Pt prefers to get labs at [facility]. We'll send orders and I'll ask our packaging engineer to f/u on results. Advised pt to [...] Cabometyx with minimal side effects. Follows with franchise broker Dr. Pringle, with plans to taper him [...] Bryanna. Will re-check CMP next Wednesday at [facility]. Will ask packaging engineer to f/u on results. # Sl worsened [...] 6 weeks -Re-check CMP on 09/28 at [facility] Mr. Tenorio asked appropriate questions and verbalized good understanding of and agreement with the plan. I encouraged him to call anytime with questions or concerns and he agreed. ____ documented in this encounter Plan of Treatment Upcoming Encounters Date Type Department Care Team (Late st Contact Info) Description 03/29/2024 10:30 AM EST Laboratory Appointment Lab at [facility] Hematology Oncology [address] [place] [id number] 03/29/2024 12:[address] [place] [address] Albino Bartholomew MD [facility] DR HEMATOLOGY [place] [address] 04/05/2024 10:00 AM EST Office Visit Hematology [place] [address] Albino Bartholomew MD [facility] DR HEMATOLOGY [place] [address] Scheduled Orders Name Type Priority Associated Diagnoses Orde r Schedule Comprehensive metabolic panel (non-fasting) Lab Routine Metastatic renal cell carcinoma to lung, unspecified laterality Expected: 02/23/2024 (Approximate), Expires: 08/23/2024 documented as of this encounter Results * CT Chest Abdomen Pelvis w Contrast (Generic) (10/08/2023 1:12 PM EDT) [employer] WORKSTATION ID [id number] RAD Anatomical Region Laterality Modality Abdomen, Pelvis [...] have questions please contact the health healthcare consultant that requested your imaging first. ? Electronically signed by: Tima Zacarias MD, [facility] ([phone]), at 10/08/2023 4:27 PM Narrative 10/08/2023 4:27 [...] who have questions please contactthe health healthcare consultant that requested your imaging first. Kelin Carlos APRN IMG CT ORDERABLES * T4, free (10/08/2023 10:50 AM EDT) Free T4 1.41 0.93 - 1.70 ng/dL [facility] Comment: Reference Interval (ng/dL): Females: ??First Trimester: 0.97-1.68 ??Second Trimester: 0.77-1.51 ??Third Trimester: 0.77-1.49 Blood 10/08/2023 10:5 0 AM EDT 10/08/2023 11:07 AM EDT Narrative Resulting Agency Comment Spec In Lab Kelin P Carlos BLANK[employer] CHEMISTRY ORDERABL ES Performing Organization Address City/[facility] Co de Phone Number [facility] [place] [address] * TSH (10/08/2023 10:50 AM EDT) Thyroid Stimulating Hormone 3.50 0.27 - 4.20 mcIU/mL [facility] Comment: Reference Interval (mcIU/mL): Females: ??First Trimester: 0.23-3.88 ??Second Trimester: 0.22-3.90 ??Third Trimester: 0.44-4.66 Blood 10/08/2023 10:5 0 AM EDT 10/08/2023 11:07 AM EDT Narrative Resulting Agency Comment Spec In Lab Kelin Carlos APRN CHEMISTRY ORDERABL ES Performing Organization Address [facility] Co de Phone Number [facility] [place] [address] documented in this encounter Visit Diagnoses Diagnosis Metastatic renal cell carcinoma to lung, unspecified laterality High risk medication use Encounter for long-term (current) use of other medications Multiple lung nodules on CT Autoimmune hepatitis Hypokalemia Hypopotassemia Renal function impairment Unspecified disorder of kidney and ureter Metastatic renal cell carcinoma to lung, unspecified laterality documented in this encounter Care Teams [employer] Dean Relationship Specialty Start Date End Date Juan Dempsey MD [address] [place] [address] PCP - General Emergency Medicine 08/20/21 documented as of this encounter
--- OUTSIDE RECORDS SUMMARY | 2024-03-09 10:13 | XMS_ITS | Encounter Summary ---
Author Organization [facility] Address [facility] [place] [address] Care Team Providers Care Care Management Assistant Name Role Phone Juan Dempsey MD Primary Care Provider [phone] Encounter Details Date Type Department Care Team (Late st Contact Info) Description 09/30/2023 Telephone Hematology [place] [address] Daxa Arriola RN Social History [...] 9:42 AM EDT Message received from clinical dye worker: cristofer said he got a msg from you and he would like to speak to you about this. Call placed to pt to discuss above. Pt instructed on use of medications prescribed for rash. Pt confirmed that pharmacy will be able to fill for him today prior to leaving [facility]. All questions answered. Pt advised to call office at [phone] with any worsening symptoms or concerns. Pt verbalized understanding and agreement with plan. documented in this encounter Plan of Treatment Upcoming Encounters Date Type Department Care Team (Late st Contact Info) Description 03/29/2024 10:30 AM EST Laboratory Appointment Lab at [facility] Hematology Oncology [address] [place] [id number] 03/29/2024 12:[address] [place] [address] Albino Bartholomew MD [facility] DR HEMATOLOGY [place] [address] 04/05/2024 10:00 AM EST Office Visit [place]ematology [place] [address] Albino Bartholomew MD [facility] DR [place]ATOLOGY [place] [address] documented as of this encounter Visit Diagnoses Not on filedocumented in this encounter Care Teams Care Management Assistant Relationship Specialty Start Date End Date Juan Dempsey MD [address] [place] [id number] PCP - General Emergency Medicine 08/20/21 documented as of this encounter
--- OUTSIDE RECORDS SUMMARY | 2024-03-09 10:13 | XMS_ITS | Encounter Summary ---
Author Organization [facility] Address [facility] [place] [address] Care Team Providers Care Manager Credit Risk Name Role Phone Juan Dempsey MD Primary Care Provider [phone] Reason for Visit * Reason Comments Follow-up Encounter Details Date Type Department Care Team (Late st Contact Info) Description 10/08/2023 3:30 PM EDT Office Visit Hematology [place] [address] Albino Bartholomew MD [facility] [address] HEMATOLOGY [place] [address] Metastatic renal cell carcinoma to lung, unspecified [...] from the original note were not included. [facility] Oncology History of Present Illness: Mr. 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 Pt prefers to get labs at [facility]. We'll send orders and I'll ask our shank taper to f/u on results. Advised pt to [...] Emily agree with this plan. --------- 11/26/21: Raymunod's recent MRI was KIMBER. We discussed the [...] Cabometyx with minimal side effects. Follows with holder pile driving Dr. Pringle, with plans to taper him [...] Bryanna. Will re-check CMP next Wednesday at [facility]. Will ask shank taper to f/u on results. # Sl worsened [...] 10:30 AM EST Laboratory Appointment Lab at [facility] Hematology Oncology [address] [place] [address] 03/29/2024 12:[address] [place] [address] Albino Bartholomew MD [facility] [address] HEMATOLOGY [place] [address] 04/05/2024 10:00 AM EST Office Visit Hematology [place] [address] Albino Bartholomew MD [facility] HEMATOLOGY [place] [address] Scheduled Orders Name Type Priority Associated Diagnoses Orde r Schedule CBC (with Diff) Lab Routine Metastatic renal cell carcinoma to lung, unspecified laterality As Needed for 4 Occurrences starting 10/08/2023 until 10/07/2024, 3 completed Comprehensive metabolic panel (non-fasting) Lab Routine Metastatic renal cell carcinoma to lung, unspecified laterality As Needed for 4 Occurrences starting 10/08/2023 until 10/07/2024, 3 completed TSH Lab Routine Metastatic renal cell carcinoma to lung, unspecified laterality High risk medication use Abnormal thyroid function test As Needed for 4 Occurrences starting 10/08/2023 until 10/07/2024, 3 completed T4, free Lab Routine Metastatic renal cell carcinoma to lung, unspecified laterality High risk medication use Abnormal thyroid function test As Needed for 4 Occurrences starting 10/08/2023 until 10/07/2024, 3 completed documented as of this encounter Results * T4, free (02/16/2024 11:49 AM EDT) Pathologist [facility] Free T4 1.53 0.93 - 1.70 ng/dL 02/16/2024 1:30 PM EDT [facility] Blood VENOUS BLOOD SPECIMEN / Unknown Venipuncture / Unknown 02/16/2024 11:49 AM EDT 02/16/2024 11:49 AM EDT Albino Bartholomew MD CHEMISTRY ORDERABLES Performing Organization Address City/[facility]/ZIP Co de Phone Number [facility] [place] [address] * TSH (02/16/2024 11:49 AM EDT) [facility] Thyroid Stimulating Hormone 4.13 0.27 - 4.20 mcIU/mL 02/16/2024 1:30 PM EDT [facility] Blood VENOUS BLOOD SPECIMEN / Unknown Venipuncture / Unknown 02/16/2024 11:49 AM EDT 02/16/2024 11:49 AM EDT Albino Bartholomew MD CHEMISTRY ORDERABLES [facility] [place] [address] * (ABNORMAL) Comprehensive metabolic panel (02/16/2024 11:49 AM EDT) [facility] Glucose 97 65 - 199 mg/dL 02/16/2024 1:30 PM EDT [facility] Comment:Glucose Concentratio n >=200 mg/dL plus symptoms is consistent with Diabetes Mellitus. Blood Urea Nitrogen 30(H) 10 - 20 mg/dL 02/16/2024 1:30 PM EDT [facility] Creatinine 1.68(H) 0.80 - 1.50 mg/dL 02/16/2024 1:30 PM [facility] Sodium 140 135 - 145 mMol/L 02/16/2024 1:30 PM [facility] Potassium 4.5 3.5 - 5.0 mMol/L 02/16/2024 1:30 PM [facility] Chloride 105 98 - 107 mMol/L 02/16/2024 1:30 PM [facility] Carbon Dioxide 27 22 - 31 mMol/L 02/16/2024 1:30 PM [facility] Anion Gap 8 5 - 15 mMol/L 02/16/2024 1:30 PM [facility] Calcium 9.0 8.5 - 10.5 mg/dL 02/16/2024 1:30 PM [facility] Protein, Total 7.0 6.1 - 8.0 g/dL 02/16/2024 1:30 PM [facility] Albumin 4.0 3.2 - 5.2 g/dL 02/16/2024 1:30 PM [facility] Aspartate Aminotransferase 25 <=39 unit/L 02/16/2024 1:30 PM [facility] Alanine Aminotransferase 91(H) 0 - 55 unit/L 02/16/2024 1:30 PM [facility] Alkaline Phosphatase 263(H) 40 - 130 unit/L 02/16/2024 1:30 PM [facility] Bilirubin, Total 0.6 <=1.3 mg/dL 02/16/2024 1:30 PM [facility] Est Glomerular Filtration Rate - Male 44 mL/min/1. 73 m?? 02/16/2024 1:30 PM [facility] Comment: This patient's estimated GFR [...] Fasting Status No 02/16/2024 1:30 PM EDT [facility] Blood VENOUS BLOOD SPECIMEN / Unknown Venipuncture / Unknown 02/16/2024 11:49 AM EDT 02/16/2024 11:49 AM EDT Albino Bartholomew MD CHEMISTRY ORDERABLES [facility] [place] [address] * (ABNORMAL) CBC (with Diff) (02/16/2024 11:49 AM EDT) White Blood Cell 6.97 4.00 - 9.50 x10(3)/mc L 02/16/2024 12:11 PM EDT [facility] Red Blood Cell 4.73 4.58 - 5.54 x10(6)/mc L 02/16/2024 12:11 PM EDT [facility] Hemoglobin 14.0 13.7 - 16.5 g/dL 02/[facility]24 [facility] Hematocrit 43.6 40.5 - 48.5 % 02/16/2024 12:11 PM EDT [facility] Mean Cell Volume 92.2 82.9 - 93.1 fL 02/16/2024 12:11 PM [facility] Mean Cell Hemoglobin 29.6 27.5 - 32.1 pg 02/16/2024 12:11 PM EDT [facility] Mean Cell Hemoglobin Concentration 32.1 32.0 - 35.7 g/dL 02/16/2024 12:[facility] Platelet 208 145 - 357 x10(3)/mc L 02/16/2024 12:11 PM EDT [facility] Mean Platelet Volume 9.9 7.6 - 12.9 fL 02/16/2024 12:11 PM [facility] RDW Standard Deviation 53.2(H) 36.0 - 45.0 fL 02/16/2024 12:11 PM [facility] RDW coefficient of variation 15.6(H) 11.4 - 13.8 % 02/16/2024 12:11 PM [facility] NRBC% auto 0.0 % 02/16/2024 12:11 PM [facility] NRBC Absolute <0.01 <0.01 x10(3)/mc L 02/16/2024 12:11 PM [facility] Neutrophil % 67.8 % 02/16/2024 12:11 PM [facility] Neutrophil Absolute (ANC) - Automated 4.72 1.70 - 6.10 x10(3)/mc L 02/16/2024 12:11 PM [facility] Lymph % 22.2 % 02/16/2024 12:11 PM [facility] Lymph Absolute 1.55 0.90 - 3.20 x10(3)/mc L 02/16/2024 12:11 PM [facility] Monocyte % 5.6 % 02/16/2024 12:11 PM [facility] Monocyte Absolute 0.39 0.30 - 0.90 x10(3)/mc L 02/16/2024 12:11 PM [facility] Eos % 3.0 % 02/16/2024 12:11 PM [facility] Eos Absolute 0.21 0.00 - 0.40 x10(3)/mc L 02/16/2024 12:11 PM [facility] Basophil % 1.3 % 02/16/2024 12:11 PM [facility] Baso Absolute 0.09 0.00 - 0.10 x10(3)/mc L 02/16/2024 12:11 PM EDT [facility] Immature Gran % 0.1 % 12:11 PM EDT [facility] Immature Gran Absolute <0.04 0.00 - 0.04 x10(3)/mc L 02/16/2024 12:11 PM EDT [facility] Blood VENOUS BLOOD SPECIMEN / Unknown Venipuncture / Unknown 02/16/2024 11:49 AM EDT 02/16/2024 11:49 AM EDT Albino Bartholomew MD HEMATOLOGY ORDERABLE S [facility] [place] [address] * T4, free (02/09/2024 12:11 PM EDT) Free T4 1.57 0.93 - 1.70 ng/dL 02/09/2024 1:08 PM EDT [facility] Blood VENOUS BLOOD SPECIMEN / Unknown Venipuncture / Unknown 02/09/2024 12:11 PM EDT 02/09/2024 12:11 PM EDT Albino Bartholomew MD CHEMISTRY ORDERABLES Performing Organization Address City/[facility]/ZIP Co de Phone Number [facility] [place] [address] * TSH (02/09/2024 12:11 PM EDT) Thyroid Stimulating Hormone 2.38 0.27 - 4.20 mcIU/mL 02/09/2024 1:08 PM EDT [facility] Blood VENOUS BLOOD SPECIMEN / Unknown Venipuncture / Unknown 02/09/2024 12:11 PM EDT 02/09/2024 12:11 PM EDT Albino Bartholomew MD CHEMISTRY ORDERABLES [facility] [place] [address] * (ABNORMAL) Comprehensive metabolic panel (02/09/2024 12:11 PM EDT) Glucose 69 65 - 199 mg/dL 02/09/2024 1:08 PM [facility] Comment:Glucose Concentratio n >=200 mg/dL plus symptoms is consistent with Diabetes Mellitus. Blood Urea Nitrogen 35(H) 10 - 20 mg/dL 02/09/2024 1:08 PM [facility] Creatinine 2.59(H) 0.80 - 1.50 mg/dL 02/09/2024 1:08 PM [facility] Sodium 137 135 - 145 mMol/L 02/09/2024 1:08 PM [facility] Potassium 4.5 3.5 - 5.0 mMol/L 02/09/2024 1:08 PM [facility] Chloride 102 98 - 107 mMol/L 02/09/2024 1:08 PM [facility] Carbon Dioxide 25 22 - 31 mMol/L 02/09/2024 1:08 PM [facility] Anion Gap 10 5 - 15 mMol/L 02/09/2024 1:08 PM [facility] Calcium 8.9 8.5 - 10.5 mg/dL 02/09/2024 1:08 PM [facility] Protein, Total 6.9 6.1 - 8.0 g/dL 02/09/2024 1:08 PM [facility] Albumin 4.2 3.2 - 5.2 g/dL 02/09/2024 1:08 PM [facility] Aspartate Aminotransferase 137(H) <=39 unit/L 02/09/2024 1:08 PM [facility] Alanine Aminotransferase 559(H) 0 - 55 unit/L 02/09/2024 1:08 PM [facility] Alkaline Phosphatase 536(H) 40 - 130 unit/L 02/09/2024 1:08 PM EDT [facility] Bilirubin, Total 0.9 <=1.3 mg/dL 02/09/2024 1:08 PM EDT [facility] Est Glomerular Filtration Rate - Male 26 mL/min/1. 73 m?? 02/09/2024 1:08 PM EDT [facility] Comment: This [...] Fasting Status No 02/09/2024 1:08 PM EDT [facility] Blood VENOUS BLOOD SPECIMEN / Unknown Venipuncture / Unknown 02/09/2024 12:11 PM EDT 02/09/2024 12:11 PM EDT Albino Bartholomew MD CHEMISTRY ORDERABLES [facility] [place] [address] * (ABNORMAL) CBC (with Diff) (02/09/2024 12:11 PM EDT) White Blood Cell 7.59 4.00 - 9.50 x10(3)/mc L 02/09/2024 12:21 PM EDT [facility] Red Blood Cell 4.95 4.58 - 5.54 x10(6)/mc L 02/09/2024 12:21 PM EDT [facility] Hemoglobin 14.6 13.7 - 16.5 g/dL 02/09/2024 12:21 PM EDT [facility] Hematocrit 44.9 40.5 - 48.5 % 02/09/2024 12:21 PM [facility] Mean Cell Volume 90.7 82.9 - 93.1 fL 02/09/2024 12:21 PM [facility] Mean Cell Hemoglobin 29.5 27.5 - 32.1 pg 02/09/2024 12:21 PM [facility] Mean Cell Hemoglobin Concentration 32.5 32.0 - 35.7 g/dL 02/09/2024 12:21 PM [facility] Platelet 190 145 - 357 x10(3)/mc L 02/09/2024 12:21 PM [facility] Mean Platelet Volume 9.8 7.6 - 12.9 fL 02/09/2024 12:21 PM [facility] RDW Standard Deviation 54.0(H) 36.0 - 45.0 fL 02/09/2024 12:21 PM [facility] RDW coefficient of variation 16.2(H) 11.4 - 13.8 % 02/09/2024 12:21 PM [facility] NRBC% auto 0.0 % 02/09/2024 12:21 PM [facility] NRBC Absolute <0.01 <0.01 x10(3)/mc L 02/09/2024 12:21 PM [facility] Neutrophil % 63.4 % 02/09/2024 12:21 PM [facility] Neutrophil Absolute (ANC) - Automated 4.82 1.70 - 6.10 x10(3)/mc L 02/09/2024 12:21 PM [facility] Lymph % 24.0 % 02/09/2024 12:21 PM [facility] Lymph Absolute 1.82 0.90 - 3.20 x10(3)/mc L 02/09/2024 12:21 PM [facility] Monocyte % 7.8 % 02/09/2024 12:21 PM [facility] Monocyte Absolute 0.59 0.30 - 0.90 x10(3)/mc L 02/09/2024 12:21 PM EDT [facility] Eos % 3.3 % 02/09/2024 12:21 PM EDT [facility] Eos Absolute 0.25 0.00 - 0.40 x10(3)/mc L 02/09/2024 12:21 PM EDT [facility] Basophil % 1.2 % 02/09/2024 12:21 PM EDT [facility] Baso Absolute 0.09 0.00 - 0.10 x10(3)/mc L 02/09/2024 12:21 PM EDT [facility] Immature Gran % 0.3 % 12:21 PM EDT [facility] Immature Gran Absolute <0.04 0.00 - 0.04 x10(3)/mc L 02/09/2024 12:21 PM EDT [facility] Blood VENOUS BLOOD SPECIMEN / Unknown Venipuncture / Unknown 02/09/2024 12:11 PM EDT 02/09/2024 12:11 PM EDT Albino Bartholomew MD HEMATOLOGY ORDERABLE S [facility] [place] [address] * T4, free (12/08/2023 11:56 AM EDT) Free T4 1.58 0.93 - 1.70 ng/dL 12/08/2023 12:43 PM EDT [facility] Blood VENOUS BLOOD SPECIMEN / Unknown Venipuncture / Unknown 12/08/2023 11:56 AM EDT 12/08/2023 11:56 AM EDT Albino Bartholomew MD CHEMISTRY ORDERABLES [facility] [place] [address] * TSH (12/08/2023 11:56 AM EDT) Pathologist [facility] Thyroid Stimulating Hormone 3.07 0.27 - 4.20 mcIU/mL 12/08/2023 12:43 PM EDT [facility] Blood VENOUS BLOOD SPECIMEN / Unknown Venipuncture / Unknown 12/08/2023 11:56 AM EDT 12/08/2023 11:56 AM EDT Albino Bartholomew MD CHEMISTRY ORDERABLES [facility] [place] [address] * (ABNORMAL) Comprehensive metabolic panel (12/08/2023 11:56 AM EDT) Pathologist [facility] Glucose 80 65 - 199 mg/dL 12/08/2023 12:43 PM EDT [facility] Comment:Glucose Concentratio n >=200 mg/dL plus symptoms is consistent with Diabetes Mellitus. Blood Urea Nitrogen 22(H) 10 - 20 mg/dL 12/08/2023 12:43 PM EDT [facility] Creatinine 1.52(H) 0.80 - 1.50 mg/dL 12/08/2023 12:43 PM EDT [facility] Sodium 141 135 - 145 mMol/L 12/08/2023 12:43 PM EDT [facility] Potassium 4.0 3.5 - 5.0 mMol/L 12/08/2023 12:43 PM EDT [facility] Chloride 104 98 - 107 mMol/L 12/08[facility]23 [facility] Carbon Dioxide 29 22 - 31 mMol/L 12/08/2023 12:43 PM EDT [facility] Anion Gap 8 5 - 15 mMol/L 12/08/2023 12:43 PM EDT [facility] Calcium 9.5 8.5 - 10.5 mg/dL 12/08/2023 12:43 PM EDT [facility] Protein, Total 6.8 6.1 - 8.0 g/dL 12/08/2023 12:43 PM EDT [facility] Albumin 4.0 3.2 - 5.2 g/dL 12/08/2023 12:43 PM EDT [facility] Aspartate Aminotransferase 23 <=39 unit/L 12/08/2023 12:43 PM EDT [facility] Alanine Aminotransferase 29 0 - 55 unit/L 12/08/2023 12:43 PM EDT [facility] Alkaline Phosphatase 153(H) 40 - 130 unit/L 12/08/2023 12:43 PM EDT [facility] Bilirubin, Total 0.3 <=1.3 mg/dL 12/08/2023 12:43 PM [facility] Est Glomerular Filtration Rate - Male 50 mL/min/1. 73 m?? 12/08/2023 12:43 PM [facility] Comment: This patient's estimated GFR [...] Fasting Status No 12/08/2023 12:43 PM EDT [facility] Blood VENOUS BLOOD SPECIMEN / Unknown Venipuncture / Unknown 12/08/2023 11:56 AM EDT 12/08/2023 11:56 AM EDT Albino Bartholomew MD CHEMISTRY ORDERABLES [facility] [place] [address] * (ABNORMAL) CBC (with Diff) (12/08/2023 11:56 AM EDT) White Blood Cell 8.63 4.00 - 9.50 x10(3)/mc L 12/08/2023 12:11 PM [facility] Red Blood Cell 4.97 4.58 - 5.54 x10(6)/mc L 12/08/2023 12:11 PM [facility] Hemoglobin 14.6 13.7 - 16.5 g/dL 12/08/2023 12:11 PM [facility] Hematocrit 45.3 40.5 - 48.5 % 12/08/2023 12:11 PM [facility] Mean Cell Volume 91.1 82.9 - 93.1 fL 12/08/2023 12:11 PM [facility] Mean Cell Hemoglobin 29.4 27.5 - 32.1 pg 12/08/2023 12:11 PM [facility] Mean Cell Hemoglobin Concentration 32.2 32.0 - 35.7 g/dL 12/08/2023 12:11 PM [facility] Platelet 202 145 - 357 x10(3)/mc L 12/08/2023 12:11 PM [facility] Mean Platelet Volume 9.7 7.6 - 12.9 fL 12/08/2023 12:11 PM [facility] RDW Standard Deviation 48.9(H) 36.0 - 45.0 fL 12/08/2023 12:11 PM [facility] RDW coefficient of variation 14.7(H) 11.4 - 13.8 % 12/08/2023 12:11 PM [facility] NRBC% auto 0.0 % 12/08/2023 12:11 PM [facility] NRBC Absolute 0.00 0.00 - 0.00 x10(3)/mc L 12/08/2023 12:11 PM [facility] Neutrophil % 69.0 % 12/08/2023 12:11 PM EDT [facility] Neutrophil Absolute (ANC) - Automated 5.96 1.70 - 6.10 x10(3)/mc L 12/08/2023 12:11 PM EDT [facility] Lymph % 20.5 % 12/08/2023 12:11 PM EDT [facility] Lymph Absolute 1.77 0.90 - 3.20 x10(3)/mc L 12/08/2023 12:11 PM EDT [facility] Monocyte % 5.6 % 12/08/2023 12:11 PM EDT [facility] Monocyte Absolute 0.48 0.30 - 0.90 x10(3)/mc L 12/08/2023 12:11 PM EDT [facility] Eos % 3.2 % 12/08/2023 12:11 PM EDT [facility] Eos Absolute 0.28 0.00 - 0.40 x10(3)/mc L 12/08/2023 12:11 PM EDT [facility] Basophil % 1.2 % 12/08/2023 12:11 PM EDT [facility] Baso Absolute 0.10 0.00 - 0.10 x10(3)/mc L 12/08/2023 12:11 PM EDT [facility] Immature Gran % 0.5 % 12:11 PM EDT [facility] Immature Gran Absolute 0.04 0.00 - 0.04 x10(3)/mc L 12/08/2023 12:11 PM EDT [facility] Blood VENOUS BLOOD SPECIMEN / Unknown Venipuncture / Unknown 12/08/2023 11:56 AM EDT 12/08/2023 11:56 AM EDT Albino Bartholomew MD HEMATOLOGY ORDERABLE S [facility] [place] [address] documented in this encounter Visit Diagnoses Diagnosis Metastatic renal cell carcinoma to lung, unspecified laterality- Primary High risk medication use Encounter for long-term (current) use of other medications Multiple lung nodules on CT Abnormal thyroid function test Nonspecific abnormal results of thyroid function study documented in this encounter Care Teams Manager Credit Risk Relationship Specialty Start Date End Date Juan Demspey MD [address] [place] [address] PCP - General Emergency Medicine 08/20/21 documented as of this encounter
--- OUTSIDE RECORDS SUMMARY | 2024-03-09 10:13 | XMS_ITS | Encounter Summary ---
Author Organization [facility] [place] [address] Care Team Providers Care Jewel Supervisor Name Role Phone Juan Dempsey MD Primary Care Provider [phone] Reason for Visit * Reason Onset Date Comments Medication Refill 11/15/2023 Encounter Details Date Type Department Care Team (Late st Contact Info) Description 11/15/2023 Refill [place] [address] HEMATOLOGY AND ONCOLOGY [place], [place] [id number] Social History Tobacco Use Types Packs/Day Years [...] 10:30 AM EST Laboratory Appointment Lab at [facility] Hematology Oncology [address] [place] [id number] 03/29/2024 12:[address] [place] [address] Albino Bartholomew MD [facility] [place] [address] 04/05/2024 10:00 AM EST Office Visit Hematology [place] [address] Albino Bartholomew MD [facility] [address] [place] [address] documented as of this encounter Visit Diagnoses Not on filedocumented in this encounter Care Teams Jewel Supervisor Relationship Specialty Start Date End Date Juan Dempsey MD [address] [place] [id number] PCP - General Emergency Medicine 08/20/21 documented as of this encounter
--- OUTSIDE RECORDS SUMMARY | 2024-03-09 10:13 | XMS_ITS | Encounter Summary ---
Author Organization [facility] Address [facility] [place] [address] Care Team Providers Care Program Architect Name Role Phone Juan Dempsey MD Primary Care Provider [phone] Encounter Details Date Type Department Care Team [...] [facility] Hematology Oncology [address] [place] [address] 03/29/2024 12:[address] [place] [place] [address] Albino Bartholomew MD [facility] [address] [place] [address] 04/05/2024 10:00 AM EST Office Visit [place]ematology [place] [address] Albino Bartholomew MD [facility] [address] [place] [address] documented as of this encounter Visit Diagnoses Not on filedocumented in this encounter Care Teams Program Architect Relationship Specialty Start Date End Date Juan Dempsey MD [address] [place] [address] PCP - General Emergency Medicine 08/20/21 documented as of this encounter
--- OUTSIDE RECORDS SUMMARY | 2024-03-09 10:13 | XMS_ITS | Encounter Summary ---
Author Organization [facility] Address [facility] [place] [address] Care Team Providers Care Leave Specialist Name Role Phone Juan Dempsey MD Primary Care Provider [phone] Reason for Visit * Reason Comments Follow-up Encounter Details Date Type Department Care Team (Late st Contact Info) Description 07/07/2023 2:00 PM EST Office Visit Hematology [place] [phone] Albino Bartholomew MD [facility] [place] [address] Metastatic renal cell carcinoma to lung, unspecified [...] from the original note were not included. [facility] [place] [facility] History of Present Illness: Mr. Tenorio [...] L radical nephrectomy on 06/23/21. 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 10/20/21 CXR ([facility]): 10/16/21: IMPRESSION 1. Unexpected finding: New [...] CT ABD/Pelvis Assessment: Cristofer Tenorio is a 68 y.o. referred by [...] taper. Pt prefers to get labs at [facility]. We'll send orders and I'll ask our fire safety inspector to f/u on results. Advised pt to [...] Hou with restaging CT scan -------- 10/28/21: Cristofer has continued to have intermittent LFT elevation despite management with prednisone (currently on 40 mg/day). Per discussion with Dr. Bartholomew who consulted w/Dr. Merino/Hepatology, we recommend switching from prednisone to budesonide 9 mg/day. We will also put in a stat referral to GI for official consult. Cristofer agrees with the plan. We will re-check CMP in 1 week. He is also scheduled for f/u abdominal MRI on 11/[address] Hou. Depending on outcome of imaging (if concerning for metastatic disease), we may see Cristofer back to discuss additional systemic therapy options. If reassuring/KIMBER, he will continue f/u with Dr. Hou. We will tentatively schedule a f/u visit in 4 weeks but may cancel if imaging reassuring and Ameya plans to maintain f/u. Cirstofer and Emily agree with this plan. --------- 11/26/21: Cristofer's recent MRI was KIMBER. We discussed the [...] Informed verbal consent was obtained. 03/18/22 Today, Cristofer feels overall well, tolerating cabozantinib and willing [...] well. We will continue current regimen. 09/16/22 Crsitofer developed hand-foot syndrome as well as tingling in his lower extremities interferingwith his daily activities. We will reduce his dose of cabozantinib to 20 mg a day. We will see him back in 4 weeks with blood work. 10/14/22 Cristofer feels much better on reduced dose of Cabometyx. Tingling in the feet is minimal. No pain. We will continue current regimen. We will see him back with CT scan blood work and visit 11/06/22 CT CAP scan demonstrates stable nodules. No signs of disease progression. Cristofer tolerates reduced dose of Cabometyx reasonably well. We will continue current regimen. We will see him back in 4-5 weeks with blood work. ------- 12/01/22: Cristofer continues to tolerate Cabometyx 20 mg/day with [...] Cabometyx with minimal side effects. Follows with bed rubber Dr. Pringle, with plans to taper him off budesonide. We will continue current regiment with Cabometyx 20 mg a day. We will see him back in 4-5 weeks with blood work. We will plan for restaging CT scan in 8-9 weeks 02/10/2023 Cristofer is in clinic for follow-up appointment and cabozantinib toxicity check. Overall, he feels at his baseline. Tolerates Cabometyx well. Continues to follow with GI Dr. Pringle 03/17/2023 CT scan was personally reviewed, stable. Official report is pending. Cristofer tolerates Cabometyx reasonably well. Energy level is [...] metastatic lesion. Official report is pending. Clinically, Cristofer is doing well. Continue current regimen with [...] 10:30 AM EST Laboratory Appointment Lab at [facility] Hematology Oncology [address] [place] [address] 03/29/2024 12:[address] [place] [phone] Albino Bartholomew MD [facility] [place] [address] 04/05/2024 10:00 AM EST Office Visit Hematology [place] [address] Albino Bartholomew MD [facility] [address] [place] [address] documented as of this encounter Visit Diagnoses Diagnosis Metastatic renal cell carcinoma to lung, unspecified laterality High risk medication use Encounter for long-term (current) use of other medications Abnormal thyroid function test Nonspecific abnormal results of thyroid function study Multiple lung nodules on CT Elevated LFTs Other abnormal blood chemistry documented in this encounter Care Teams Leave Specialist Relationship Specialty Start Date End Date Juan Dempsey MD [address] [place] [address] PCP - General Emergency Medicine 08/20/21 documented as of this encounter
--- OUTSIDE RECORDS SUMMARY | 2024-03-09 10:13 | XMS_ITS | Encounter Summary ---
Author Organization [facility] Address [facility] [place] [address] Care Team Providers Care Alarm Installation Technician Name Role Phone Juan Dempsey MD Primary Care Provider [phone] Encounter Details Date Type Department Care Team (Late st Contact Info) Description 08/31/2023 Telephone Hematology [place] [address] Mary Salas RN Social History [...] [facility] Hematology Oncology [address] [place] [address] 03/29/2024 12:[address] [place] [place] [phone] Albino Bartholomew MD [facility] [place]AT[place] [address] 04/05/2024 10:00 AM EST Office Visit Hematology [place] [phone] Albino Bartholomew MD [facility] DR HEMATOLOGY [place] [address] documented as of this encounter Visit Diagnoses Not on filedocumented in this encounter Care Teams Alarm Installation Technician Relationship Specialty Start Date End Date Juan Dempsey MD [address] [place] [address] PCP - General Emergency Medicine 08/20/21 documented as of this encounter
--- OUTSIDE RECORDS SUMMARY | 2024-03-09 10:13 | XMS_ITS | Encounter Summary ---
Author Organization [facility] Address [facility] [place] [address] Care Team Providers Care Tinner Automatic Name Role Phone Juan Dempsey MD Primary Care Provider [phone] Encounter Details Date Type Department Care Team [...] 10:30 AM EST Laboratory Appointment Lab at [facility] Hematology Oncology [address] [place] [address] 03/29/2024 12:[address] [place] [address] Albino Bartholomew MD [facility] DR [place] [address] 04/05/2024 10:00 AM EST Office Visit Hematology [place] [address] Albino Bartholomew MD [facility] DR [place] [address] documented as of this encounter Visit Diagnoses Not on filedocumented in this encounter Care Teams Tinner Automatic Relationship Specialty Start Date End Date Juan Dempsey MD [address] [place] [address] PCP - General Emergency Medicine 08/20/21 documented as of this encounter
--- OUTSIDE RECORDS SUMMARY | 2024-03-09 10:13 | XMS_ITS | Encounter Summary ---
Author Organization [facility] Address [facility] [place] [address] Care Team Providers Care Produce Weigher Name Role Phone Juan Dempsey MD Primary Care Provider [phone] Encounter Details Date Type Department Care Team [...] AM EST Laboratory Appointment Lab at [facility] Hematology Oncology [address] [place] [address] 03/29/2024 12:[address] [place] [address] Albino Bartholomew MD [facility] DR [place] [address] 04/05/2024 10:00 AM EST Office Visit Hematology [place] [address] Albino Bartholomew MD [facility] DR [place] [address] documented as of this encounter Visit Diagnoses Not on filedocumented in this encounter Care Teams Produce Weigher Relationship Specialty Start Date End Date Juan Dempsey MD [address] [place] [address] PCP - General Emergency Medicine 08/20/21 documented as of this encounter
--- OUTSIDE RECORDS SUMMARY | 2024-03-09 10:13 | XMS_ITS | Encounter Summary ---
Author Organization [facility] [place] [address] Care Team Providers Care Vp Compliance Name Role Phone Juan Dempsey MD Primary Care Provider [phone] Reason for Referral * Diagnostic Test (Routine) - Closed Specialty Diagnoses / Procedures Referred By Contac t Referred To Contact Radiology Diagnoses Metastatic renal cell carcinoma to lung, unspecified laterality Procedures CT Chest Abdomen Pelvis w Contrast (Generic) Kelin Carlos APRN [address] [place] [address] [place] [address] [facility] [place] [address] Referral ID Status Reason Start Date Expiration Date V isits Requested Visits Authorized [id number] Closed Specialty Service Requested 08/24/2023 02/22/2025 1 1 Reason for Visit * Diagnostic Test (Routine) - Closed Specialty Diagnoses / Procedures Referred By Contac t Referred To Contact Radiology Diagnoses Metastatic renal cell carcinoma to lung, unspecified laterality Procedures CT Chest Abdomen Pelvis w Contrast (Generic) Kelin Carlos APRN [address] [place] [address] [place] [address] [facility] [place] [address] Referral ID Status Reason Start Date Expiration Date V isits Requested Visits Authorized [id number] Closed Specialty Service Requested 08/24/2023 02/22/2025 1 1 Encounter Details Date Type Department Care Team (Latest Contact Info) Description 10/08/2023 10:30 AM EDT - 10/08/2023 10:38 AM EDT Hospital [place] [address] Kelin Carlos, MSWS [address] [place] [address] DR HEMATOLOGY AND ONCOLOGY [place], [place] [address] Metastatic renal cell carcinoma to lung, unspecified [...] AM EST Laboratory Appointment Lab at [facility] [place] [address] [place] [address] 03/29/2024 12:[address] [place] [place] [phone] Albino Bartholomew MD [facility] [place] [address] 04/05/2024 10:00 AM EST Office Visit [place]ematology [place] [address] Albino Bartholomew MD [facility] [place] [address] documented as of this encounter Procedures Procedure Name Priority Date/Time Associated Diagnosis Comments CT CHEST ABDOMEN PELVIS W CONTRAST (GENERIC) Routine 10/08/2023 1:12 PM EDT Metastatic renal cell carcinoma to lung, unspecified laterality POCT CREATININE Routine 10/08/2023 1:07 PM EDT documented in this encounter Results * CT Chest Abdomen Pelvis w Contrast (Generic) (10/08/2023 1:12 PM EDT) WORKSTATION ID [id number] RAD Anatomical Region Laterality Modality Abdomen, Pelvis [...] who have questions please contact the health medicare sales executive that requested your imaging first. ? Narrative [...] patients who have questions please contactthe health medicare sales executive that requested your imaging first. Kelin Carlos [...] mLs documented in this encounter Care Teams Vp Compliance Relationship Specialty Start Date End Date Juan Dempsey MD [address] [place] [address] PCP - General Emergency Medicine 08/20/21 documented as of this encounter
--- OUTSIDE RECORDS SUMMARY | 2024-03-09 10:13 | XMS_ITS | Encounter Summary ---
Author Organization [facility] Address [facility] [place] [address] Care Team Providers Care Ironer Hand Name Role Phone Juan Dempsey MD Primary Care Provider [phone] Encounter Details Date Type Department Care Team (Latest Contact Info) Description 08/24/2023 9:54 AM EDT - 08/24/2023 11:59 PM EDT Hospital Encounter [place] [phone] Metastatic renal cell carcinoma to lung, unspecified [...] 10:30 AM EST Laboratory Appointment Lab at [facility] H[place]ology Oncology [address] [place] [address] 03/29/2024 12:[address] [place] [place] [phone] Albino Bartholomew MD [facility] [address] [place] [address] 04/05/2024 10:00 AM EST Office Visit [place]ematology [place] [address] Albino Bartholomew MD [facility] [place] [address] documented as of this encounter Procedures Procedure [...] * Bilirubin, Direct (08/24/2023 10:01 AM EDT) Bilirubin, Direct 0.1 0.0 - 0.3 mg/dL [facility] Blood 08/24/2023 10:0 1 AM EDT 08/24/2023 10:06 AM EDT Narrative Resulting Agency Comment Spec In Lab Ana Pringle MD CHEMISTRY ORDERABLES [facility] [place] [address] * Differential, Automated (08/24/2023 10:01 AM EDT) Pathologist [facility] Neutrophil % 72.6 % [facility] Neutrophil Absolute 5.87 1.70 - 6.10 x10(3)/[facility] Lymph % 17.7 % [facility] Lymphocytes Abs 1.4 0.9 - 3.2 x10(3)/[facility] Monocyte % 4.0 % [facility] Monocyte Abs 0.3 0.3 - 0.9 x10(3)/[facility] Eos % 4.3 % [facility] Eosinophils Abs 0.4 0.0 - 0.4 x10(3)/[facility] Basophil % 1.2 % [facility] Baso Absolute 0.1 0.0 - 0.1 x10(3)/[facility] Immature Gran % 0.20 % [facility] Comment: Immature granulocytes(IG's)percentage and absolute count will include metamyelocytes, myelocytes, and promyelocytes. Blood smears from CBCs yielding IG's will be scanned manually for concordance. If this scan disagrees with the automated IG or if promyelocytes are noted, a manual differential will be performed. Immature Gran Absolute 0.02 0.00 - 0.04 x10(3)/mcL [facility] Blood 08/24/2023 10:0 1 AM EDT 08/24/2023 10:07 AM EDT Narrative Resulting Agency Comment Spec In Lab Kelin Carlos MACHINE BRUSHER HEMATOLOGY ORDERAB LES [facility] [place] [address] * (ABNORMAL) Hemogram (08/24/2023 10:01 AM EDT) White Blood Cell 8.1 4.0 - 9.5 x10(3)/[facility] Red Blood Cell 4.66 4.58 - 5.54 x10(6)/ L [facility] Hemoglobin 14.3 13.7 - 16.5 g/dL [facility] Hematocrit 42.3 40.5 - 48.5 % [facility] Mean Cell Volume 90.8 82.9 - 93.1 [facility] Mean Cell Hemoglobin 30.7 27.5 - 32.1 pg [facility] Mean Cell Hemoglobin Concentration 33.8 32.0 - 35.7 g/dL [facility] Platelet 185 145 - 357 x10(3)/[facility] RDW Standard Deviation 49.1(H) 36.0 - 45.0 [facility] RDW coefficient of variation 14.7(H) 11.4 - 13.8 % [facility] Mean Platelet Volume 9.8 7.6 - 12.9 [facility] NRBC% auto 0.0 % [facility] NRBC Absolute 0.000 0.000 - 0.000 x10(3)/[facility] Blood 08/24/2023 10:0 1 AM EDT 08/24/2023 10:07 AM EDT Narrative Resulting Agency Comment Spec In Lab Kelin Roach Carlos MACHINE BRUSHER HEMATOLOGY ORDERAB LES [facility] [place] [address] * (ABNORMAL) Comprehensive metabolic panel (non-fasting) (08/24/2023 10:01 AM EDT) Glucose 106 65 - 199 mg/dL [facility] Comment:Diabetes: >=200 mg/d L plus symptoms Blood Urea Nitrogen 24(H) 10 - 20 mg/dL [facility] Creatinine 1.67(H) 0.80 - 1.50 mg/dL [facility] Sodium 141 135 - 145 mmol/L [facility] Potassium 3.3(L) 3.5 - 5.0 mmol/L [facility] Comment: Please note: ??Patients with WBC >100,000 may have falsely elevated Potassium levels. ??For accurate Potassium quantification in these patients send serum separator tube (gold top) for subsequent determinations. ??Contact the Clinical Chemistry Laboratory if there are any questions. Chloride 104 98 - 107 mmol/L [facility] Carbon Dioxide 27 22 - 31 mmol/L [facility] Anion Gap 10 5 - 15 mmol/L [facility] Calcium 8.7 8.5 - 10.5 mg/dL [facility] Protein, Total 6.4 6.1 - 8.0 g/dL [facility] Albumin 3.8 3.2 - 5.2 g/dL [facility] Aspartate Aminotransferase 22 0 - 39 unit/L [facility] Alanine Aminotransferase 27 0 - 55 unit/L [facility] Alkaline Phosphatase 147(H) 40 - 130 unit/L [facility] Bilirubin, Total 0.4 0.2 - 1.3 mg/dL [facility] Est Glomerular Filtration Rate 44(L) >=60 mL/min/1. 73 m?? [facility] Comment: This patient's estimated [...] APRN CHEMISTRY ORDERABL ES Performing Organization Address [facility] de Phone Number [facility] [place] [address] * TSH (08/24/2023 10:01 AM EDT) Thyroid Stimulating Hormone 3.25 0.27 - 4.20 mcIU/mL [facility] Comment: Reference Interval (mcIU/mL): Females: ??First Trimester: 0.23-3.88 ??Second Trimester: 0.22-3.90 ??Third Trimester: 0.44-4.66 Blood 08/24/2023 10:0 1 AM EDT 08/24/2023 10:06 AM EDT Narrative Resulting Agency Comment Spec In Lab Kelin Carlos APRN CHEMISTRY ORDERABL ES Performing Organization Address [facility] de Phone Number [facility] [place] [address] * T4, free (08/24/2023 10:01 AM EDT) Free T4 1.48 0.93 - 1.70 ng/dL [facility] Comment: Reference Interval (ng/dL): Females: ??First Trimester: 0.97-1.68 ??Second Trimester: 0.77-1.51 ??Third Trimester: 0.77-1.49 Blood 08/24/2023 10:0 1 AM EDT 08/24/2023 10:06 AM EDT Narrative Resulting Agency Comment Spec In Lab Kelin Carlos MACHINE BRUSHER CHEMISTRY ORDERABL ES [facility] [place] [address] documented in this encounter Visit Diagnoses Diagnosis Metastatic renal cell carcinoma to lung, unspecified laterality Drug induced liver disease documented in this encounter Care Teams Ironer Hand Relationship Specialty Start Date End Date Juan Dempsey MD [address] [place] [address] PCP - General Emergency Medicine 08/20/21 documented as of this encounter
--- OUTSIDE RECORDS SUMMARY | 2024-03-09 10:13 | XMS_ITS | Encounter Summary ---
Author Organization [facility] Address [facility] [place] [address] Care Team Providers Care Nutrition Specialist Name Role Phone Juna Dempsey MD Primary Care Provider [phone] Encounter Details Date Type Department Care Team (Late st Contact Info) Description 08/19/2023 Orders Only Hematology [place] [phone] Albino Bartholomew MD [facility] DR HEMATOLOGY [place] [address] Social History Tobacco Use Types Packs/Day Years [...] [facility] Hematology Oncology [address] [place] [address] 03/29/2024 12:[address] [place] [place] [address] Albino Bartholomew MD [facility] DR HEMATOLOGY [place] [address] 04/05/2024 10:00 AM EST Office Visit Hematology [place] [address] Albino Bartholomew MD [facility] DR HEMATOLOGY [place] [address] documented as of this encounter Visit Diagnoses Not on filedocumented in this encounter Care Teams Nutrition Specialist Relationship Specialty Start Date End Date Juan Dempsey MD [address] [place] [address] PCP - General Emergency Medicine 08/20/21 documented as of this encounter
--- OUTSIDE RECORDS SUMMARY | 2024-03-09 10:13 | XMS_ITS | Encounter Summary ---
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, unspecified laterality Procedures CT Chest Abdomen Pelvis w Contrast (Generic) Lulu Jolley APRN [facility] [place]EMAT[place] [address] [facility] [place] [address] Referral ID Status Reason Start Date Expiration Date V isits Requested Visits Authorized [id number] Closed Specialty Service Requested 06/07/2023 11/30/2024 1 1 Reason for Visit * Diagnostic Test (Routine) - Closed Specialty Diagnoses / Procedures Referred By Burak mcnair Referred To Contact Radiology Diagnoses Metastatic renal cell 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, unspecified laterality Procedures CT Chest Abdomen Pelvis w Contrast (Generic) Lulu Jolley APRN [facility] HEMATOLOG[place] [address] [facility] Rad [address] Scan [facility] [place] [address] Referral ID Status Reason Start Date Expiration Date V isits Requested Visits Authorized [id number] Closed Specialty Service Requested 06/07/2023 11/30/2024 1 1 Encounter Details Date Type Department Care Team (Late st Contact Info) Description 07/07/2023 8:47 AM EST - 07/07/2023 8:55 AM EST Hospital Encounter CT Scan at [facility] [place] [address] Lulu Jolley APRN [facility] DR HEMATOLOGY [place] [address] Metastatic renal cell carcinoma to [...] [facility] Hematology Oncology [address] [place] [address] 03/29/2024 12:[address] [place] [place] [address] Albino Bartholomew MD [facility] DR HEMATOLOGY [place] [address] 04/05/2024 10:00 AM EST Office Visit Hematology and Oncology at [facility] [place] [address] Albino Bartholomew MD [facility] DR HEMATOLOGY [place] [address] documented as of this encounter Procedures Procedure [...] have questions please contact the health director medicare sales that requested your imaging first. ? Electronically signed by: Мария Matthew MD, Radiology [facility] ??([phone]), at 07/08/2023 10:58 AM Narrative 07/08/2023 10:58 [...] who have questions please contactthe health director medicare sales that requested your imaging first. Electronically signed by: Мария Matthew MD, [facility]([phone]), at 07/08/2023 10:58 AM Lulu Jolley AGRICULTURE LABORER IMG CT ORDERABL ES documented in this encounter Visit Diagnoses Diagnosis Metastatic renal cell carcinoma to lung, unspecified laterality documented in this encounter Administered Medications Inactive Administered Medications - up to 3 most recent administrations Medication Order MAR Action Action Date Dose Rate Site iodixanoL (Visipaque) (320 mg/mL) injection solution 0-200 mL 0-200 mL, Intravenous, ONCE PRN, 1 dose, Starting on Wed07/07/23 [...] mLs documented in this encounter Care Teams Radio Operator Relationship Specialty Start Date End Date Juan Dempsey MD [address] [place] [address] PCP - General Emergency Medicine 08/20/21 documented as of this encounter
--- OUTSIDE RECORDS SUMMARY | 2024-03-09 10:13 | XMS_ITS | Encounter Summary ---
Author Organization [facility] Address [facility] [place] [address] Care Team Providers Care Financial Reporting Accountant Name Role Phone Juan Dempsey MD Primary Care Provider [phone] Reason for Visit * Reason Onset Date Comments Medication Refill 11/02/2023 Encounter Details Date Type Department Care Team (Late st Contact Info) Description 11/02/2023 Refill Hematology [place] [address] HEMATOLOGY AND ONCOLOGY [place], [place] [id number] Social History Tobacco Use Types Packs/Day Years [...] 10:30 AM EST Laboratory Appointment Lab [place] [facility] [place] [address] [place] [address] 03/29/2024 12:[address] [place] [address] Albino Bartholomew MD [facility] DR HEMATOLOGY [place] [address] 04/05/2024 10:00 AM EST Office Visit Hematology [place] [address] Albino Bartholomew MD [facility] DR HEMATOLOGY [place] [address] documented as of this encounter Visit Diagnoses Not on filedocumented in this encounter Care Teams Financial Reporting Accountant Relationship Specialty Start Date End Date Juan Dempsey MD [address] [place] [address] PCP - General Emergency Medicine 08/20/21 documented as of this encounter
--- OUTSIDE RECORDS SUMMARY | 2024-03-09 10:13 | XMS_ITS | Encounter Summary ---
Author Organization [facility] Address [facility] [place] [address] Care Team Providers Care Cake Knocker Name Role Phone Juan Dempsey MD Primary Care Provider [phone] Encounter Details Date Type Department Care Team (Late st Contact Info) Description 08/26/2023 Telephone Hematology [place] [address] Daxa Arriola RN Social History [...] 8:49 AM EDT Message received from clinical stenographer secretary: Faxed request for refill of levothyroxine 75mcg(drug name and dose) received from [facility], fax # [phone]. Additional pertinent information: n/a Review of chart suggests it is an appropriate refill. Order pended and routed to Kelin Carlos APRN and Albino Bartholomew MD for approval. documented in this encounter Plan of Treatment Upcoming Encounters Date Type Department Care Team (Late st Contact Info) Description 03/29/2024 10:30 AM EST Laboratory Appointment Lab at [facility] [place] On[place] [address] [place] [address] 03/29/2024 12:[address] [place] [address] Albino Bartholomew MD [facility] [place] [address] 04/05/2024 10:00 AM EST Office Visit Hematology [place] [address] Albino Bartholomew MD [facility] [address] [place] [address] documented as of this encounter Visit Diagnoses Not on filedocumented in this encounter Care Teams Cake Knocker Relationship Specialty Start Date End Date Juan Dempsey MD [address] [place] [address] PCP - General Emergency Medicine 08/20/21 documented as of this encounter
--- OUTSIDE RECORDS SUMMARY | 2024-03-09 10:14 | XMS_ITS | Encounter Summary ---
Author Organization [facility] Address [facility] [place] [address] Care Team Providers Care Cloth Feeder Name Role Phone Juan Dempsey MD Primary Care Provider [phone] Encounter Details Date Type Department Care Team [...] 10:30 AM EST Laboratory Appointment Lab at [facility] Hematology Oncology [address] [place] [address] 03/29/2024 12:[address] [place] [place] [address] Albino Bartholomew MD [facility] [place] [address] 04/05/2024 10:00 AM EST Office Visit [place] [address] Albino Bartholomew MD [facility] [place] [address] documented as of this encounter Visit Diagnoses Not on filedocumented in this encounter Care Teams Cloth Feeder Relationship Specialty Start Date End Date Juan Dempsey MD [address] [place] [address] PCP - General Emergency Medicine 08/20/21 documented as of this encounter
--- OUTSIDE RECORDS SUMMARY | 2024-03-09 10:14 | XMS_ITS | Encounter Summary ---
Author Organization [facility] Address [facility] [place] [address] Care Team Providers Care Rolfer Name Role Phone Juan Dempsey MD Primary Care Provider [phone] Encounter Details Date Type Department Care Team (Latest Contact Info) Description 06/02/2023 11:59 AM EST - 06/02/2023 11:59 PM EST Hospital Encounter Hematology [place] [address] Metastatic renal cell carcinoma to lung, unspecified [...] 10:30 AM EST Laboratory Appointment Lab at [facility] Hematology Oncology [address] [place] [address] 03/29/2024 12:[address] [place] [address] Albino Bartholomew MD [facility] DR [place] [address] 04/05/2024 10:00 AM EST Office Visit Hematology [place] [address] Albino Bartholomew MD [facility] [address] [place] [address] documented as of this encounter Procedures Procedure [...] Bilirubin, Direct 0.1 0.0 - 0.3 mg/dL [facility] Blood 06/02/2023 12:1 2 PM EST 06/02/2023 12:23 PM EST Narrative Resulting Agency Comment Spec In Lab Ana Pringle MD CHEMISTRY ORDERABLES [facility] [place] [address] * Differential, Automated (06/02/2023 12:12 PM EST) Neutrophil % 71.5 % [facility] Neutrophil Absolute 5.68 1.70 - 6.10 x10(3)/[facility] Lymph % 18.6 % [facility] Lymphocytes Abs 1.5 0.9 - 3.2 x10(3)/[facility] Monocyte % 4.9 % [facility] Monocyte Abs 0.4 0.3 - 0.9 x10(3)/[facility] Eos % 3.3 % [facility] Eosinophils Abs 0.3 0.0 - 0.4 x10(3)/[facility] Basophil % 1.3 % [facility] Baso Absolute 0.1 0.0 - 0.1 x10(3)/[facility] Immature Gran % 0.40 % [facility] Comment: Immature granulocytes(IG's)percentage and absolute count will include metamyelocytes, myelocytes, and promyelocytes. Blood smears from CBCs yielding IG's will be scanned manually for concordance. If this scan disagrees with the automated IG or if promyelocytes are noted, a manual differential will be performed. Immature Gran Absolute 0.03 0.00 - 0.04 x10(3)/[facility] Blood 06/02/2023 12:1 2 PM EST 06/02/2023 12:23 PM EST Narrative Resulting Agency Comment Spec In Lab Albino Bartholomew MD HEMATOLOGY ORDERABLE S [facility] [place] [address] * (ABNORMAL) Hemogram (06/02/2023 12:12 PM EST) White Blood Cell 7.9 4.0 - 9.5 x10(3)/mc L [facility] Red Blood Cell 4.21(L) 4.58 - 5.54 x10(6)/mc L [facility] Hemoglobin 13.1(L) 13.7 - 16.5 g/dL [facility] Hematocrit 39.2(L) 40.5 - 48.5 % [facility] Mean Cell Volume 93.1 82.9 - 93.1 fL [facility] Mean Cell Hemoglobin 31.1 27.5 - 32.1 pg [facility] Mean Cell Hemoglobin Concentration 33.4 32.0 - 35.7 g/dL [facility] Platelet 234 145 - 357 x10(3)/mc L [facility] RDW Standard Deviation 46.1(H) 36.0 - 45.0 fL [facility] RDW coefficient of variation 13.5 11.4 - 13.8 % [facility] Mean Platelet Volume 9.6 7.6 - 12.9 fL [facility] NRBC% auto 0.0 % [facility] NRBC Absolute 0.000 0.000 - 0.000 x10(3)/mc L [facility] Blood 06/02/2023 12:1 2 PM EST 06/02/2023 12:23 PM EST Narrative Resulting Agency Comment Spec In Lab Albino Bartholomew MD HEMATOLOGY ORDERABLE S Performing Organization Address City/[facility]/ZIP Co de Phone Number [facility] [address] * (ABNORMAL) Comprehensive metabolic panel (non-fasting) (06/02/2023 12:12 PM EST) Glucose 112 65 - 199 mg/dL [facility] Comment:Diabetes: >=200 mg/d L plus symptoms Blood Urea Nitrogen 20 10 - 20 mg/dL [facility] Creatinine 1.53(H) 0.80 - 1.50 mg/dL [facility] Sodium 142 135 - 145 mmol/L [facility] Potassium 4.2 3.5 - 5.0 mmol/L [facility] Comment: Please note: ??Patients with WBC >100,000 may have falsely elevated Potassium levels. ??For accurate Potassium quantification in these patients send serum separator tube (gold top) for subsequent determinations. ??Contact the Clinical Chemistry Laboratory if there are any questions. Chloride 106 98 - 107 mmol/L [facility] Carbon Dioxide 27 22 - 31 mmol/L [facility] Anion Gap 9 5 - 15 mmol/L [facility] Calcium 9.2 8.5 - 10.5 mg/dL [facility] Protein, Total 6.5 6.1 - 8.0 g/dL [facility] Albumin 4.0 3.2 - 5.2 g/dL [facility] Aspartate Aminotransferase 26 0 - 39 unit/L [facility] Alanine Aminotransferase 28 0 - 55 unit/L [facility] Alkaline Phosphatase 124 40 - 130 unit/L [facility] Bilirubin, Total 0.3 0.2 - 1.3 mg/dL [facility] Est Glomerular Filtration Rate 49(L) >=60 mL/min/1. 73 m?? [facility] Comment: This patient's estimated GFR [...] In Lab Albino Bartholomew MD CHEMISTRY ORDERABLES [facility] [address] * TSH (06/02/2023 12:12 PM EST) Thyroid Stimulating Hormone 2.83 0.27 - 4.20 mcIU/mL [facility] Comment: Reference Interval (mcIU/mL): Females: ??First Trimester: 0.23-3.88 ??Second Trimester: 0.22-3.90 ??Third Trimester: 0.44-4.66 Blood 06/02/2023 12:1 2 PM EST 06/02/2023 12:23 PM EST Narrative Resulting Agency Comment Spec In Lab Albino Bartholomew MD CHEMISTRY ORDERABLES Performing Organization Address [facility] Co de Phone Number [facility] [place] [address] * T4, free (06/02/2023 12:12 PM EST) Free T4 1.64 0.93 - 1.70 ng/dL [facility] Comment: Reference Interval (ng/dL): Females: ??First Trimester: 0.97-1.68 ??Second Trimester: 0.77-1.51 ??Third Trimester: 0.77-1.49 Blood 06/02/2023 12:1 2 PM EST 06/02/2023 12:23 PM EST Narrative Resulting Agency Comment Spec In Lab Albino Bartholomew MD CHEMISTRY ORDERABLES Performing Organization Address [facility] Co de Phone Number [facility] [place] [address] documented in this encounter Visit Diagnoses Diagnosis Metastatic renal cell carcinoma to lung, unspecified laterality High risk medication use Encounter for long-term (current) use of other medications Abnormal thyroid function test Nonspecific abnormal results of thyroid function study Autoimmune hepatitis documented in this encounter Care Teams Rolfer Relationship Specialty Start Date End Date Juan Dempsey MD [address] [place] [address] PCP - General Emergency Medicine 08/20/21 documented as of this encounter
--- OUTSIDE RECORDS SUMMARY | 2024-03-09 10:14 | XMS_ITS | Encounter Summary ---
Author [facility] Address [facility] [place] [address] Care Team Providers Care Class A Regional Drivers Name Role Phone Juan Dempsey MD Primary Care Provider [phone] Reason for Referral * Diagnostic Test (Routine) - Closed Specialty Diagnoses / Procedures Referred By Contac t Referred To Contact Radiology Diagnoses Metastatic renal cell carcinoma to lung, unspecified laterality Multiple lung nodules on CT Procedures CT Chest Abdomen Pelvis w Contrast (Generic) Albino Costello MD [facility] DR HEMATOLOGY [place] [address] [facility] [place] [address] Referral ID Status Reason Start Date Expiration Date V isits Requested Visits Authorized [id number] Closed Specialty Service Requested 02/22/2023 08/23/2024 1 1 Reason for Visit * Reason Comments Follow-up Encounter Details Date Type Department Care Team (Late st Contact Info) Description 02/10/2023 10:00 AM EDT Office Visit Hematology [place] [address] Albino Costello MD [facility] DR HEMATOLOGY [place] [address] Metastatic renal cell carcinoma to lung, unspecified [...] from the original note were not included. [facility] Oncology History of Present Illness: Mr. 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 Pt prefers to get labs at [facility]. We'll send orders and I'll ask our emt/dispatcher to f/u on results. Advised pt to [...] Cabometyx with minimal side effects. Follows with youth court judge Dr. Pringle, with plans to taper him [...] [facility] Hematology Oncology [address] [place] [address] 03/29/2024 12:[address] [place] [address] Albino Costello MD [facility] HEMATOLOGY [place] [address] 04/05/2024 10:00 AM EST Office Visit Hematology [place] [address] Albino Costello MD [facility] DR HEMATOLOGY [place] [address] documented as of this encounter Results * [...] be a cyst, pseudocyst, or sidebranch IPMN. [id number] MRI is recommended versus attention on planned follow-up studies. Thank you for letting us participate in the care of this patient. If youare a health care provider and have any questions regarding this report,please contact the number below. For patients who have questions please contactthe health youth career specialist that requested your imaging first. Electronically signed by: Lynette Maya MD, [facility]([phone]), at 03/17/2023 10:08 AM Albino Costello MD IMG CT ORDERABLES [...] CT documented in this encounter Care Teams Class A Regional Drivers Relationship Specialty Start Date End Date Juan Dempsey MD [address] [place] [address] PCP - General Emergency Medicine 08/20/21 documented as of this encounter
--- OUTSIDE RECORDS SUMMARY | 2024-03-09 10:14 | XMS_ITS | Encounter Summary ---
Author Organization [facility] Address [facility] [place] [address] Care Team Providers Care Bilingual Customer Service Name Role Phone Juan Dempsey MD Primary Care Provider [phone] Encounter Details Date Type Department Care Team (Late st Contact Info) Description 06/03/2023 Orders [place] [address] Ana Pringle MD [facility] [place] [address] Drug induced liver disease Social History Tobacco [...] 10:30 AM EST Laboratory Appointment Lab at [facility] Hematology Oncology [address] [place] [address] 03/29/2024 12:[address] [place] [address] Albino Bartholomew MD [facility] [address] [place] [address] 04/05/2024 10:00 AM EST Office Visit Hematology [place] [address] Albino Bartholomew MD [facility] [address] [place] [address] documented as of this encounter Visit Diagnoses Diagnosis Drug induced liver disease documented in this encounter Care Teams Bilingual Customer Service Relationship Specialty Start Date End Date Juan Dempsey MD [address] [place] [address] PCP - General Emergency Medicine 08/20/21 documented as of this encounter
--- OUTSIDE RECORDS SUMMARY | 2024-03-09 10:14 | XMS_ITS | Encounter Summary ---
Author Organization [facility] Address [facility] [place] [address] Care Team Providers Care Re Dye Hand Name Role Phone Juan Dempsey MD Primary Care Provider [phone] Encounter Details Date Type Department Care Team [...] 10:30 AM EST Laboratory Appointment Lab at [facility] Hematology Oncology [address] [place] [address] 03/29/2024 12:[address] [place] [address] Albino Bartholomew MD [facility] DR HEMATOLOGY [place] [address] 04/05/2024 10:00 AM EST Office Visit Hematology [place] [address] Albino Bartholomew MD [facility] DR [place]EMAT[place] [address] documented as of this encounter Visit Diagnoses Not on filedocumented in this encounter Care Teams Re Dye Hand Relationship Specialty Start Date End Date Juan Dempsey MD [address] [place] [address] PCP - General Emergency Medicine 08/20/21 documented as of this encounter
--- OUTSIDE RECORDS SUMMARY | 2024-03-09 10:14 | XMS_ITS | Encounter Summary ---
Author Organization [facility] [place] [address] Care Team Providers Care Feed Miller Name Role Phone Juan Dempsey MD Primary Care Provider [phone] Reason for Referral * Diagnostic Test (Routine) - Closed Specialty Diagnoses / Procedures Referred By Contac t Referred To Contact Radiology Diagnoses Metastatic renal cell carcinoma to lung, unspecified laterality Multiple lung nodules on CT Procedures CT Chest Abdomen Pelvis w Contrast (Generic) Albino Bartholomew MD [facility] [address] [place] [address] [facility] [place] [address] Referral ID Status Reason Start Date Expiration Date V isits Requested Visits Authorized [id number] Closed Specialty Service Requested 02/22/2023 08/23/2024 1 1 Reason for Visit * Diagnostic Test (Routine) - Closed Specialty Diagnoses / Procedures Referred By Contac t Referred To Contact Radiology Diagnoses Metastatic renal cell carcinoma to lung, unspecified laterality Multiple lung nodules on CT Procedures CT Chest Abdomen Pelvis w Contrast (Generic) Albino Bartholomew MD [facility] [place] [address] [facility] [place] [address] Referral ID Status Reason Start Date Expiration Date V isits Requested Visits Authorized [id number] Closed Specialty Service Requested 02/22/2023 08/23/2024 1 1 Encounter Details Date Type Department Care Team (Latest Contact Info) Description 03/16/2023 12:45 PM EST - 03/16/2023 1:21 PM EST Hospital Encounter CT Scan at [facility] [place] [address] Albino Bartholomew MD [facility] [address] H[place]OLOG[place] [address] Metastatic renal cell carcinoma to [...] 10:30 AM EST Laboratory Appointment Lab at [facility] [place] On[place] [address] [place] [address] 03/29/2024 12:[address] [place] [address] Albino Bartholomew MD [facility] [address] HEMATOLOG[place] [address] 04/05/2024 10:00 AM EST Office Visit Hematology and Oncology at [facility] [place] [address] Albino Bartholomew MD [facility] [address] [place] [address] documented as of this encounter Procedures Procedure [...] have questions please contact the health care services manager that requested your imaging first. ? Electronically signed by: Lynette Maya MD, [facility] ([phone]), at 03/17/2023 10:08 AM Narrative 03/17/2023 10:08 AM EST EXAMINATION: CT [...] be a cyst, pseudocyst, or sidebranch IPMN. Cio-kibjupnywg-ur MRI is recommended versus attention on planned follow-up studies. Thank you for letting us participate in the care of this patient. If youare a health care provider and have any questions regarding this report,please contact the number below. For patients who have questions please contactthe health care services manager that requested your imaging first. Albino Bartholomew MD [facility] CT ORDERABLES documented in this encounter Visit [...] Intravenous, ONCE PRN, 1 dose, Starting on 03/16/23 at 1438, Until 03/16/23 at 1439, Per Protocol, Radiology Contrast, Routine Given 03/16/2023 2:39 PM EST 131 mLs iohexoL (Omnipaque) (350 mg/mL) solution 0-50 mL 0-50 mL, Oral, ONCE PRN, 1 dose, Starting on Wed03/16/23 at 1438, Until Wed03/16/23 at 1230, Per Protocol, Warning Vesicant/Irritant Medication , Radiology Contrast, Routine Given 03/16/2023 12:30 PM EST 50 mLs documented in this encounter Care Teams Feed Miller Relationship Specialty Start Date End Date Juan Dempsey MD [address] [place] [address] PCP - General Emergency Medicine 08/20/21 documented as of this encounter
--- OUTSIDE RECORDS SUMMARY | 2024-03-09 10:14 | XMS_ITS | Encounter Summary ---
Author Organization [facility] Address [facility] [place] [address] Care Team Providers Care Medical Insurance Clerk Name Role Phone Juan Dempsey MD Primary Care Provider [phone] Reason for Visit * Reason Onset Date Comments Diarrhea 04/06/2023 Update from 04/02 . Encounter Details Date Type Department Care Team (Late st Contact Info) Description 04/06/2023 Telephone Hematology [place] [address] Jacquelyn Funes RN Diarrhea (Update [...] 04/06/2023 8:57 AM EST ----- Regarding: update [phone] - patient called - has been off his Cabametyx and made a dietary change - would like to report his update on his diarrhea documented in this encounter Plan of Treatment Upcoming Encounters Date Type Department Care Team (Late st Contact Info) Description 03/29/2024 10:30 AM EST Laboratory Appointment Lab at [facility] Hematology Oncology [address] [place] [address] 03/29/2024 12:[address] [place] [address] Albino Batrholomew MD [facility] DR HEMATOLOGY [place] [address] 04/05/2024 10:00 AM EST Office Visit Hematology [place] [address] Albino Bartholomew MD [facility] DR HEMATOLOGY [place] [address] documented as of this encounter Visit Diagnoses Not on filedocumented in this encounter Care Teams Medical Insurance Clerk Relationship Specialty Start Date End Date Juan Dempsey MD [address] [place] [address] PCP - General Emergency Medicine 08/20/21 documented as of this encounter
--- OUTSIDE RECORDS SUMMARY | 2024-03-09 10:14 | XMS_ITS | Encounter Summary ---
Author Organization Counts Include [facility] Address [facility] [place] [address] Care Team Providers Care Outpatient Scheduler Name Role Phone Juan Dempsey MD Primary Care Provider [phone] Encounter Details Date Type Department Care Team [...] [facility] Hematology Oncology [address] [place] [address] 03/29/2024 12:[address] [place] [place] [address] Albino Bartholomew MD [facility] DR [place] [address] 04/05/2024 10:00 AM EST Office Visit [place]ology [place] [address] Albino Bartholomew MD [facility] DR [place] [address] documented as of this encounter Visit Diagnoses Not on filedocumented in this encounter Care Teams Outpatient Scheduler Relationship Specialty Start Date End Date Juan Dempsey MD [address] [place] [address] PCP - General Emergency Medicine 08/20/21 documented as of this encounter
--- OUTSIDE RECORDS SUMMARY | 2024-03-09 10:14 | XMS_ITS | Encounter Summary ---
Author Organization [facility] Address [facility] [place] [address] Care Team Providers Care Fur Blowing Machine Operator Name Role Phone Juan Dempsey MD Primary Care Provider [phone] Encounter Details Date Type Department Care Team [...] 10:30 AM EST Laboratory Appointment Lab at [facility] Hematology Oncology [address] [place] [address] 03/29/2024 12:[address] [place] [address] Albino Bartholomew MD [facility] DR HEMATOLOGY [place] [address] 04/05/2024 10:00 AM EST Office Visit [place]ematology [place] [address] Albino Bartholomew MD [facility] DR HEMATOLOGY [place] [address] documented as of this encounter Visit Diagnoses Not on filedocumented in this encounter Care Teams Fur Blowing Machine Operator Relationship Specialty Start Date End Date Juan Dempsey MD [address] [place] [address] PCP - General Emergency Medicine 08/20/21 documented as of this encounter
--- OUTSIDE RECORDS SUMMARY | 2024-03-09 10:14 | XMS_ITS | Encounter Summary ---
Author Organization [facility] [place] [address] Care Team Providers Care Datastage Architect Name Role Phone Juan Dempsey MD Primary Care Provider [phone] Reason for Visit * Reason Onset Date Comments Diarrhea 04/02/2023 Encounter Details Date Type Department Care Team (Late st Contact Info) Description 04/02/2023 Telephone [place]ology [place] [address] Jacquelyn Funes RN Diarrhea Social [...] on Wednesday. TRIAGE CALL Message received from law secretary: Received call from pt, transferred by law secretary who identified pt's name/ and provided MRN [...] blood is noted in his stools. , /GUIDE DOG TRAINER/Telephone Triage for Oncology Nurses, 3rd Edition, ONCLexa [...] This note was written or modified using Enubila voice recognition software. The final note was screened for mistakes. Please excuse any remaining errors. documented in this encounter Plan of Treatment Upcoming Encounters Date Type Department Care Team (Late st Contact Info) Description 03/29/2024 10:30 AM EST Laboratory Appointment Lab [place] [facility] [place] [address] [place] [address] 03/29/2024 12:[address] [place] [place] [address] Albino Bartholomew MD [facility] HEMATOLOGY [place] [address] 04/05/2024 10:00 AM EST Office Visit [place]ology [place] [address] Albino Bartholomew MD [facility] HEMATOLOGY [place] [address] documented as of this encounter Visit Diagnoses Not on filedocumented in this encounter Care Teams Datastage Architect Relationship Specialty Start Date End Date Juan Dempsey MD [address] [place] [address] PCP - General Emergency Medicine 08/20/21 documented as of this encounter
--- OUTSIDE RECORDS SUMMARY | 2024-03-09 10:14 | XMS_ITS | Encounter Summary ---
Author Organization [facility] Address [facility] [place] [address] Care Team Providers Care Casting Plug Assembler Name Role Phone Juan Dempsey MD [...] 10:30 AM EST Laboratory Appointment Lab at [facility] Hematology Oncology [address] [place] [address] 03/29/2024 12:[address] [place] [place] [address] Albino Bartholomew MD [facility] [address] [place] [address] 04/05/2024 10:00 AM EST Office Visit [place]ology [place] [address] Albino Bartholomew MD [facility] [address] [place] [address] documented as of this encounter Visit Diagnoses Not on filedocumented in this encounter Care Teams Casting Plug Assembler Relationship Specialty Start Date End Date Juan Dempsey MD [address] [place] [address] PCP - General Emergency Medicine 08/20/21 documented as of this encounter
--- OUTSIDE RECORDS SUMMARY | 2024-03-09 10:14 | XMS_ITS | Encounter Summary ---
Author Organization Count Includes [facility] Address [facility] [place] [address] Care Team Providers Care Wage And Salary Specialist Name Role Phone Juan Dempsey MD Primary Care Provider [phone] Encounter Details Date Type Department Care Team [...] [facility] Hematology Oncology [address] [place] [address] 03/29/2024 12:[address] [place] [address] Albino Bartholomew MD [facility] [place] [address] 04/05/2024 10:00 AM EST Office Visit Hematology [place] [address] Albino Bartholomew MD [facility] [place] [address] documented as of this encounter Visit Diagnoses Not on filedocumented in this encounter Care Teams Wage And Salary Specialist Relationship Specialty Start Date End Date Juan Dempsey MD [address] [place] [address] PCP - General Emergency Medicine 08/20/21 documented as of this encounter
--- OUTSIDE RECORDS SUMMARY | 2024-03-09 10:14 | XMS_ITS | Encounter Summary ---
Author Organization [facility] Address [place] [address] Care Team Providers Care Hide Curer Name Role Phone Juan Dempsey MD Primary Care Provider [phone] Reason for Visit * Reason Comments Medication Refill Encounter Details Date Type Department Care Team (Late st Contact Info) Description 05/19/2023 Specialty Pharmacy [place] [phone] Tru Prakash, [facility] Social History Tobacco Use Types [...] this encounter Progress Notes * Tru Prakash [facility] - 05/19/2023 2:51 PM EST Clinical Management Plan: Refill Specialty Pharmacy Consultation; Tru Prakash [facility] Comprehensive Medication Management (CMM) Cristofer [...] Provider: plan sponsor pharmacist [facility] Follow-up Time Spent: 1-15 min Method of Contact: by telephone Cognitive Ability: good Cognitive Impairment Status Verified this Year: no Allergies and Drug intolerance: Allergies Allergen Reactions Grass Pollen-Orchardgrass, Standard Peanut Medication Reconciliation Discrepancies (compared to [facility] med list) -none Specialty Pharmacy Refill [...] made at the appointment and that [facility] is providing recommendations (summary located at top of note) for provider review and follow up. Tru Prakash RPH 05/19/23 3:13 PM documented in this encounter Plan of Treatment Upcoming Encounters Date Type Department Care Team (Late st Contact Info) Description 03/29/2024 10:30 AM EST Laboratory Appointment Lab at [facility] Hematology Oncology [address] [place] [address] 03/29/2024 12:[address] [place] [address] Albino Bartholomew MD [facility] [place] [address] 04/05/2024 10:00 AM EST Office Visit Hematology [place] [address] Albino Bartholomew MD [facility] DR [place] [address] documented as of this encounter Visit Diagnoses Not on filedocumented in this encounter Care Teams Hide Curer Relationship Specialty Start Date End Date Juan Dempsey MD [address] [place] [address] PCP - General Emergency Medicine 08/20/21 documented as of this encounter
--- OUTSIDE RECORDS SUMMARY | 2024-03-09 10:14 | XMS_ITS | Encounter Summary ---
Author Organization [facility] Address [facility] [place] [address] Care Team Providers Care Vaccine Specialist Name Role Phone Juan Dempsey MD [...] EST Laboratory Appointment Lab at [facility] [place] [address] [place] [address] 03/29/2024 12:[address] [place] [place] [address] Albnio Bartholomew MD [facility] [address] HEMATOLOGY AND [place] [address] 04/05/2024 10:00 AM EST Office Visit [place]ology [place] [address] Albino Bartholomew MD [facility] [address] HEMATOLOGY AND [place] [address] documented as of this encounter Visit Diagnoses Not on filedocumented in this encounter Care Teams Vaccine Specialist Relationship Specialty Start Date End Date Juan Dempsey MD [address] [place] [address] PCP - General Emergency Medicine 08/20/21 documented as of this encounter
--- OUTSIDE RECORDS SUMMARY | 2024-03-09 10:14 | XMS_ITS | Encounter Summary ---
Author Organization [facility] Address [facility] [place] [address] Care Team Providers Care White Metal Caster Name Role Phone Juan Dempsey MD Primary Care Provider [phone] Reason for Visit * Reason Comments Specialty Pharmacy Review Cabometyx 20mg tablet Encounter Details Date Type Department Care Team (Late st Contact Info) Description 02/10/2023 Specialty Pharm[place] [address] Kelin Chong, [facility] Social History Tobacco Use Types Packs/Day [...] EST Laboratory Appointment Lab [place] [facility] [place] [address] [place] [address] 03/29/2024 12:[address] [place] [address] Albino Bartholomew MD [facility] [address] [place] [address] 04/05/2024 10:00 AM EST Office Visit Hematology [place] [address] Albino Bartholomew MD [facility] [address] [place] [address] documented as of this encounter Visit Diagnoses Not on filedocumented in this encounter Care Teams White Metal Caster Relationship Specialty Start Date End Date Juan Dempsey MD [address] [place] [address] PCP - General Emergency Medicine 08/20/21 documented as of this encounter
--- OUTSIDE RECORDS SUMMARY | 2024-03-09 10:14 | XMS_ITS | Encounter Summary ---
Author Organization [facility] Address [facility] [place] [address] Care Team Providers Care Meter Maintenance Person Name Role Phone Juan Dempsey MD Primary Care Provider [phone] Reason for Visit * Reason Comments Follow-up Encounter Details Date Type Department Care Team (Late st Contact Info) Description 04/28/2023 3:30 PM EST Office Visit [place] [address] Albino Costello MD [facility] [place] [address] Metastatic renal cell carcinoma to lung, unspecified [...] from the original note were not included. [facility] [place] [facility] History of Present Illness: Mr. 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 Advised pt to [...] Cabometyx with minimal side effects. Follows with ldr rn Dr. Pringle, with plans to taper him [...] [facility] Hematology Oncology [address] [place] [address] 03/29/2024 12:[address] [place] [address] Albino Costello MD [facility] [place] [address] 04/05/2024 10:00 AM EST Office Visit [place] [address] Albino Costello MD [facility] [place] [address] documented as of this encounter Visit Diagnoses Diagnosis Metastatic renal cell carcinoma to lung, unspecified laterality High risk medication use Encounter for long-term (current) use of other medications Abnormal thyroid function test Nonspecific abnormal results of thyroid function study Autoimmune hepatitis Multiple lung nodules on CT documented in this encounter Care Teams Meter Maintenance Person Relationship Specialty Start Date End Date Juan Dempsey MD [address] [place] [address] PCP - General Emergency Medicine 08/20/21 documented as of this encounter
--- OUTSIDE RECORDS SUMMARY | 2024-03-09 10:14 | XMS_ITS | Encounter Summary ---
Author Organization [facility] Address [facility] [place] [address] Care Team Providers Care Teletype Or Varitype Keyboard Operator Name Role Phone Juan Dempsey MD Primary Care Provider [phone] Encounter Details Date Type Department Care Team [...] AM EST Laboratory Appointment Lab at [facility] Hematology Oncology [address] [place] [address] 03/29/2024 12:[address] [place] [address] Albino Bartholomew MD [facility] DR [place] [address] 04/05/2024 10:00 AM EST Office Visit Hematology [place] [address] Albino Bartholomew MD [facility] [address] [place] [address] documented as of this encounter Visit Diagnoses Not on filedocumented in this encounter Care Teams Teletype Or Varitype Keyboard Operator Relationship Specialty Start Date End Date Juan Dempsey MD [address] [place] [address] PCP - General Emergency Medicine 08/20/21 documented as of this encounter
--- OUTSIDE RECORDS SUMMARY | 2024-03-09 10:14 | XMS_ITS | Encounter Summary ---
Author Organization [facility] [place] [address] Care Team Providers Care Life Cycle Assessment Analyst Name Role Phone Juan Dempsey MD Primary Care Provider [phone] Encounter Details Date Type Department Care Team (Latest Contact Info) Description 02/10/2023 9:00 AM EDT - 02/10/2023 11:59 PM EDT Hospital Encounter [place] [phone] Metastatic renal cell carcinoma to lung, unspecified [...] [facility] [place] [address] [place] [address] 03/29/2024 12:[address] [place] [place] [phone] Albino Bartholomew MD [facility] [address] [place] [address] 04/05/2024 10:00 AM EST Office Visit [place] [address] Albino Bartholomew MD [facility] DR [place] [address] Scheduled Orders Name Type Priority Associated Diagnoses [...] Bilirubin, Direct 0.1 0.0 - 0.3 mg/dL [facility] Blood 02/10/2023 9:11 AM EDT 02/10/2023 9:18 AM EDT Ana Pringle MD CHEMISTRY ORDERABLES Performing Organization Address City/State/[facility] Co de Phone Number [facility] [place] [address] * (ABNORMAL) Differential, Automated (02/10/2023 9:11 AM EDT) Neutrophil % 74.8 % [facility] Neutrophil Absolute 7.11(H) 1.70 - 6.10 x10(3)/mc L [facility] Lymph % 17.5 % [facility] Lymphocytes Abs 1.7 0.9 - 3.2 x10(3)/mc L [facility] Monocyte % 4.6 % [facility] Monocyte Abs 0.4 0.3 - 0.9 x10(3)/mc L [facility] Eos % 1.9 % [facility] Eosinophils Abs 0.2 0.0 - 0.4 x10(3)/mc L [facility] Basophil % 0.8 % [facility] Baso Absolute 0.1 0.0 - 0.1 x10(3)/mc L [facility] Immature Gran % 0.40 % [facility] Comment: Immature granulocytes(IG's)percentage and absolute count will include metamyelocytes, myelocytes, and promyelocytes. Blood smears from CBCs yielding IG's will be scanned manually for concordance. If this scan disagrees with the automated IG or if promyelocytes are noted, a manual differential will be performed. Immature Gran Absolute 0.04 0.00 - 0.04 x10(3)/mc L [facility] Blood 02/10/2023 9:11 AM EDT 02/10/2023 9:18 AM EDT Albino Bartholomew MD HEMATOLOGY ORDERABLE S [facility] [place] [address] * (ABNORMAL) Hemogram (02/10/2023 9:11 AM EDT) White Blood Cell 9.5 4.0 - 9.5 x10(3)/mc L [facility] Red Blood Cell 4.25(L) 4.58 - 5.54 x10(6)/mc L [facility] Hemoglobin 13.9 13.7 - 16.5 g/dL [facility] Hematocrit 41.3 40.5 - 48.5 % [facility] Mean Cell Volume 97.2(H) 82.9 - 93.1 fL [facility] Mean Cell Hemoglobin 32.7(H) 27.5 - 32.1 pg [facility] Mean Cell Hemoglobin Concentration 33.7 32.0 - 35.7 g/dL [facility] Platelet 193 145 - 357 x10(3)/mc L [facility] RDW Standard Deviation 54.6(H) 36.0 - 45.0 fL [facility] RDW coefficient of variation 15.5(H) 11.4 - 13.8 % [facility] Mean Platelet Volume 9.8 7.6 - 12.9 fL [facility] NRBC% auto 0.0 % [facility] NRBC Absolute 0.000 0.000 - 0.000 x10(3)/mc L [facility] Blood 02/10/2023 9:11 AM EDT 02/10/2023 9:18 AM EDT Albino Bartholomew MD HEMATOLOGY ORDERABLE S [facility] [place] [address] * (ABNORMAL) Comprehensive metabolic panel (non-fasting) (02/10/2023 9:11 AM EDT) Glucose 93 65 - 199 mg/dL [facility] Comment:Diabetes: >=200 mg/d L plus symptoms Blood Urea Nitrogen 24(H) 10 - 20 mg/dL [facility] Creatinine 1.44 0.80 - 1.50 mg/dL [facility] Sodium 142 135 - 145 mmol/L [facility] Potassium 3.6 3.5 - 5.0 mmol/L [facility] Comment: Please note: ??Patients with WBC >100,000 may have falsely elevated Potassium levels. ??For accurate Potassium quantification in these patients send serum separator tube (gold top) for subsequent determinations. ??Contact the Clinical Chemistry Laboratory if there are any questions. Chloride 105 98 - 107 mmol/L [facility] Carbon Dioxide 29 22 - 31 mmol/L [facility] Anion Gap 8 5 - 15 mmol/L [facility] Calcium 9.2 8.5 - 10.5 mg/dL [facility] Protein, Total 6.2 6.1 - 8.0 g/dL [facility] Albumin 4.0 3.2 - 5.2 g/dL [facility] Aspartate Aminotransferase 30 0 - 39 unit/L [facility] Alanine Aminotransferase 38 0 - 55 unit/L [facility] Alkaline Phosphatase 106 40 - 130 unit/L [facility] Bilirubin, Total 0.4 0.2 - 1.3 mg/dL [facility] Est Glomerular Filtration Rate 53(L) >=60 mL/min/1. 73 m?? [facility] Comment: This patient's estimated GFR [...] MD CHEMISTRY ORDERABLES Performing Organization Address [facility] Co de Phone Number [facility] [place] [address] * (ABNORMAL) TSH (02/10/2023 9:11 AM EDT) Thyroid Stimulating Hormone 6.10(H) 0.27 - 4.20 mcIU/mL [facility] Comment: Reference Interval (mcIU/mL): Females: ??First Trimester: 0.23-3.88 ??Second Trimester: 0.22-3.90 ??Third Trimester: 0.44-4.66 Blood 02/10/2023 9:11 AM EDT 02/10/2023 9:18 AM EDT Albino Bartholomew MD CHEMISTRY ORDERABLES Performing Organization Address [facility] Co de Phone Number [facility] [place] [address] * T4, free (02/10/2023 9:11 AM EDT) Free T4 1.43 0.93 - 1.70 ng/dL [facility] Comment: Reference Interval (ng/dL): Females: ??First Trimester: 0.97-1.68 ??Second Trimester: 0.77-1.51 ??Third Trimester: 0.77-1.49 Blood 02/10/2023 9:11 AM EDT 02/10/2023 9:18 AM EDT Albino Bartholomew MD CHEMISTRY ORDERABLES Performing Organization Address [facility] Co de Phone Number [facility] [place] [address] documented in this encounter Visit Diagnoses Diagnosis Metastatic renal cell carcinoma to lung, unspecified laterality High risk medication use Encounter for long-term (current) use of other medications Abnormal thyroid function test Nonspecific abnormal results of thyroid function study Autoimmune hepatitis documented in this encounter Care Teams Life Cycle Assessment Analyst Relationship Specialty Start Date End Date Juan Dempsey MD [address] [place] [address] PCP - General Emergency Medicine 08/20/21 documented as of this encounter
--- OUTSIDE RECORDS SUMMARY | 2024-03-09 10:14 | XMS_ITS | Encounter Summary ---
Author Organization [facility] Address [facility] [place] [address] Care Team Providers Care Mallet And Die Cutter Name Role Phone Juan Dempsey MD Primary Care Provider [phone] Reason for Visit * Reason Comments Specialty Pharmacy Review Cabometyx 20mg tablet Encounter Details Date Type Department Care Team (Late st Contact Info) Description 03/17/2023 Specialty [place] [phone] Kelin Chong, [facility] Social History Tobacco Use Types [...] Chong - 03/17/2023 11:59 PM EST The [facility] has completed a benefits investigation for Cristofer Tenorio to review their eligibility to fill at [facility]. Per patient's medication list they are prescribedCabometyx 20mg tablet and the medication is currently filled through the [facility] The patient is currently filling the medication through Specialty Pharmacy with a $10.35 copay. PA approved until 2025 documented in this encounter Plan of Treatment Upcoming Encounters Date Type Department Care Team (Late st Contact Info) Description 03/29/2024 10:30 AM EST Laboratory Appointment [place] [facility] [place] [address] [place] [address] 03/29/2024 12:[address] [place] [place] [address] Albino Bartholomew MD [facility] DR HEMATOLOGY [place] [address] 04/05/2024 10:00 AM EST Office Visit Hematology [place] [address] Albino Bartholomew MD [facility] [address] HEMATOLOGY [place] [address] documented as of this encounter Visit Diagnoses Not on filedocumented in this encounter Care Teams Mallet And Die Cutter Relationship Specialty Start Date End Date Juan Dempsey MD [address] [place] [address] PCP - General Emergency Medicine 08/20/21 documented as of this encounter
--- OUTSIDE RECORDS SUMMARY | 2024-03-09 10:14 | XMS_ITS | Encounter Summary ---
Author Organization [facility] Address [facility] [place] [address] Care Team Providers Care Dry Mill Worker Name Role Phone Juan Dempsey MD Primary Care Provider [phone] Reason for Visit * Reason Comments Medication Management Encounter Details Date Type Department Care Team (Late st Contact Info) Description 02/10/2023 Specialty [place] [phone] Dawn Steen, [facility] Social History Tobacco Use Types Packs/Day [...] this encounter Progress Notes * Dawn Muse [facility] - 02/10/2023 2:49 PM EDT Clinical Management Plan: Refill Specialty Pharmacy Consultation; Dawn Muse [facility] Comprehensive Medication Management (CMM) Cristofer Stevensnaida Mr. [...] Standard Peanut Medication Reconciliation Discrepancies (compared to [facility] med list) No Specialty Pharmacy Refill Questionnaire [...] current drug regimen were made. Dawn Muse [facility] 02/10/23 2:55 PM Specialty Pharmacy Consultation; Dawn Muse RPH Comprehensive Medication Management (CMM): Specialty Consult, Intervention Cristofer Tenorio Summary: When speaking with Cristofer about his refill for Cabometyx, he expressed that he is still experiencinga bitter taste with food. He states that drinking milk prior to eating food helps recover his taste. Encouraged to keep doing what works for him. He states that the taste does not reduce his appetite. Dawn Muse RPH 02/10/23 2:55 PM documented in this encounter Plan of Treatment Upcoming Encounters Date Type Department Care Team (Late st Contact Info) Description 03/29/2024 10:30 AM EST Laboratory Appointment Lab at [facility] Hematology Oncology [address] [place] [address] 03/29/2024 12:[address] [place] [address] Albino Bartholomew MD [facility] [address] [place] [address] 04/05/2024 10:00 AM EST Office Visit Hematology [place] [address] Albino Bartholomew MD [facility] [address] [place] [address] documented as of this encounter Visit Diagnoses Not on filedocumented in this encounter Care Teams Dry Mill Worker Relationship Specialty Start Date End Date Juan Dempsey MD [address] [place] [address] PCP - General Emergency Medicine 08/20/21 documented as of this encounter
--- OUTSIDE RECORDS SUMMARY | 2024-03-09 10:14 | XMS_ITS | Encounter Summary ---
Author Organization [facility] Address [facility] [place] [address] Care Team Providers Care Mannequin Refinisher Name Role Phone Juan Dempsey MD Primary Care Provider [phone] Encounter Details Date Type Department Care Team [...] AM EST Laboratory Appointment Lab at [facility] [place] Hematology Oncology [address] [place] [address] 03/29/2024 12:[address] [place] [address] Albino Bartholomew MD [facility] [address] [place] [address] 04/05/2024 10:00 AM EST Office Visit Hematology [place] [address] Albino Bartholomew MD [facility] [address] [place] [address] documented as of this encounter Visit Diagnoses Not on filedocumented in this encounter Care Teams Mannequin Refinisher Relationship Specialty Start Date End Date Juan Dempsey MD [address] [place] [address] PCP - General Emergency Medicine 08/20/21 documented as of this encounter
--- OUTSIDE RECORDS SUMMARY | 2024-03-09 10:14 | XMS_ITS | Encounter Summary ---
Author Organization [facility] Address [facility] [place] [address] Care Team Providers Care Underbaster Name Role Phone Juan Dempsey MD Primary Care Provider [phone] Reason for Visit * Reason Comments Specialty Refill Management cabometyx Encounter Details Date Type Department Care Team (Late st Contact Info) Description 04/14/2023 Specialty [place] [phone] Marci Angel, [facility] Social History Tobacco Use Types Packs/Day [...] Standard Peanut Medication Reconciliation Discrepancies (compared to [facility] med list) No Specialty Pharmacy Refill Questionnaire [...] AM EST Laboratory Appointment Lab at [facility] [place] On[place] [address] [place] [address] 03/29/2024 12:[address] [place] [phone] Albino Bartholomew MD [facility] [address] [place] [address] 04/05/2024 10:00 AM EST Office Visit [place]ematology [place] [address] Albino Bartholomew MD [facility] [address] [place] [address] documented as of this encounter Visit Diagnoses Not on filedocumented in this encounter Care Teams Underbaster Relationship Specialty Start Date End Date Juan Dempsey MD [address] [place] [address] PCP - General Emergency Medicine 08/20/21 documented as of this encounter
--- OUTSIDE RECORDS SUMMARY | 2024-03-09 10:14 | XMS_ITS | Encounter Summary ---
Author Organization [facility] Address [facility] [place] [address] Care Team Providers Care Automobile Contract Clerk Name Role Phone Juan Dempsey MD Primary Care Provider [phone] Encounter Details Date Type Department Care Team (Late st Contact Info) Description 04/06/2023 Telephone [place]ematology [place] [phone] Radha Yanes MD [facility] DR HEMATOLOGY/[place] [address] Social History Tobacco Use Types Packs/Day Years [...] hours daily, he was assessed by the gis professor. [place] this could be carbometyx related, hence per [...] [place] Yanes MD Hematology/ Medical Oncology Fellow [facility] Page #[phone] documented in this encounter Plan of Treatment Upcoming Encounters Date Type Department Care Team (Late st Contact Info) Description 03/29/2024 10:30 AM EST Laboratory Appointment Lab at [facility] [place]ematology Oncology [address] [place] [address] 03/29/2024 12:[address] [place] [address] Albino Bartholomew MD [facility] DR HEMATOLOGY [place] [address] 04/05/2024 10:00 AM EST Office Visit [place]ematology [place] [address] Albino Bartholomew MD [facility] [address] HEMATOLOGY [place] [address] documented as of this encounter Visit Diagnoses Not on filedocumented in this encounter Care Teams Automobile Contract Clerk Relationship Specialty Start Date End Date Juan Dempsey MD [address] [place] [address] PCP - General Emergency Medicine 08/20/21 documented as of this encounter
--- OUTSIDE RECORDS SUMMARY | 2024-03-09 10:14 | XMS_ITS | Encounter Summary ---
Author Organization [facility] Address [facility] [place] [address] Care Team Providers Care Pipe Stripper Name Role Phone Juan Dempsey MD Primary Care Provider [phone] Encounter Details Date Type Department Care Team (Late st Contact Info) Description 05/12/2023 Telephone Hematology [place] [address] Mary Salas RN Social History [...] [facility] [place] [facility] Oncology [address] [place] [address] 03/29/2024 12:[address] [place] [address] Albino Bartholomew MD [facility] DR HEMATOLOGY [place] [address] 04/05/2024 10:00 AM EST Office Visit Hematology [place] [address] Albino Bartholomew MD [facility] [address] HEMATOLOGY [place] [address] documented as of this encounter Visit Diagnoses Not on filedocumented in this encounter Care Teams Pipe Stripper Relationship Specialty Start Date End Date Juan Dempsey MD [address] [place] [address] PCP - General Emergency Medicine 08/20/21 documented as of this encounter
--- OUTSIDE RECORDS SUMMARY | 2024-03-09 10:14 | XMS_ITS | Encounter Summary ---
Author Organization [facility] Address [facility] [place] [address] Care Team Providers Care Clean Out Driller Name Role Phone Juan Dempsey MD Primary Care Provider Reason for Visit * Reason Comments Specialty Refill Management Encounter Details Date Type Department Care Team (Late st Contact Info) Description 03/11/2023 Specialty [place] [phone] Reshma Gar, [facility] Social History Tobacco Use Types Packs/Day Years [...] this encounter Progress Notes * Reshma Gar [facility] - 03/11/2023 4:17 PM EST Clinical Management Plan: Refill Specialty Pharmacy Consultation; Reshma Gar [facility] Comprehensive Medication Management (CMM) Cristofer Stevensnaida Mr. [...] Standard Peanut Medication Reconciliation Discrepancies (compared to [facility] med list) No Specialty Pharmacy Refill Questionnaire [...] current drug regimen were made. Reshma Gar [facility] 03/11/23 4:21 PM documented in this encounter Plan of Treatment Upcoming Encounters Date Type Department Care Team (Late st Contact Info) Description 03/29/2024 10:30 AM EST Laboratory Appointment Lab at [facility] Hematology Oncology [address] [place] [address] 03/29/2024 12:[address] [place] [place] [phone] Albino Bartholomew MD [facility] DR HEMATOLOGY [place] [address] 04/05/2024 10:00 AM EST Office Visit [place]ology [place] [address] Albino Bartholomew MD [facility] DR HEMATOLOGY [place] [address] documented as of this encounter Visit Diagnoses Not on filedocumented in this encounter Care Teams Clean Out Driller Relationship Specialty Start Date End Date Juan Dempsey MD [address] [place] [address] PCP - General Emergency Medicine 08/20/21 documented as of this encounter
--- OUTSIDE RECORDS SUMMARY | 2024-03-09 10:14 | XMS_ITS | Encounter Summary ---
Author Organization [facility] Address [facility] [place] [address] Care Team Providers Care Construction Lineman Name Role Phone Juan Dempsey MD Primary Care Provider [phone] Reason for Referral * Diagnostic Test (Routine) - Closed Specialty Diagnoses / Procedures Referred By Burak mcnair Referred To Contact Radiology Diagnoses Metastatic renal cell carcinoma to lung, unspecified laterality Procedures CT Chest Abdomen Pelvis w Contrast (Generic) Lulu Jolley APRN [facility] [address] [place] [address] [facility] [place] [address] Referral ID Status Reason Start Date Expiration Date V isits Requested Visits Authorized [id number] Closed Specialty Service Requested 06/07/2023 11/30/2024 1 1 Encounter Details Date Type Department Care Team (Late st Contact Info) Description 06/02/2023 2:15 PM EST Office Visit Hematology [place] [address] Lulu Jolley APRN [facility] [place] [address] Metastatic renal cell carcinoma to [...] this encounter Progress Notes * Lulu Jolley, PAINTER INTERIOR FINISH - 06/02/2023 2:15 PM EST Images from the original note were not included. 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 Pt prefers to get labs at [facility]. We'll send orders and I'll ask our political aide to f/u on results. Advised pt to [...] Cabometyx with minimal side effects. Follows with bag sewer Dr. Pringle, with plans to taper him [...] concerns and he agreed. Lulu Jolley DNP, PAINTER INTERIOR FINISH, AGACNP-BC, AOCNP, ACHPN Division of Hematology Oncology-Gastrointestinal Brick TesterTanker Drivercellular tower climber [facility] documented in this encounter Plan of Treatment Upcoming Encounters Date Type Department Care Team (Late st Contact Info) Description 03/29/2024 10:30 AM EST Laboratory Appointment Lab at [facility] Hematology Oncology [address] [place] [address] 03/29/2024 12:[address] [place] [address] Albino Bartholomew MD [facility] [place] [address] 04/05/2024 10:00 AM EST Office Visit [place]ematology [place] [address] Albino Bartholomew MD [facility] [place] [address] documented as of this encounter Results * [...] who have questions please contact the health technical healthcare consultant that requested your imaging first. ? Electronically signed by: Мария Matthew MD, [facility] ??([phone]), at 07/08/2023 10:58 AM Narrative 07/08/2023 10:58 [...] anterior mediastinal lymphnodes are stable. Mediastinum and hcristine: Normal. Abdomen/pelvis: Liver: No aggressive lesions are [...] patients who have questions please contactthe health technical healthcare consultant that requested your imaging first. Lulu Jolley APRN IMG CT ORDERABL ES * T4, free (07/07/2023 9:01 AM EST) Free T4 1.47 0.93 - 1.70 ng/dL [facility] Comment: Reference Interval (ng/dL): Females: ??First Trimester: 0.97-1.68 ??Second Trimester: 0.77-1.51 ??Third Trimester: 0.77-1.49 Blood 07/07/2023 9:01 AM EST 07/07/2023 9:14 AM EST Narrative Resulting Agency Comment Spec In Lab Lulu Jolley APRN CHEMISTRY ORDER RADHA Performing Organization Address City/[facility] Co de Phone Number [facility] [place] [address] * TSH (07/07/2023 9:01 AM EST) Thyroid Stimulating Hormone 3.28 0.27 - 4.20 mcIU/mL [facility] Comment: Reference Interval (mcIU/mL): Females: ??First Trimester: 0.23-3.88 ??Second Trimester: 0.22-3.90 ??Third Trimester: 0.44-4.66 Blood 07/07/2023 9:01 AM EST 07/07/2023 9:14 AM EST Narrative Resulting Agency Comment Spec In Lab Lulu Jolley APRN CHEMISTRY ORDER RADHA Performing Organization Address City/[facility] Co de Phone Number [facility] [place] [address] * (ABNORMAL) Comprehensive metabolic panel (non-fasting) (07/07/2023 9:01 AM EST) Glucose 164 65 - 199 mg/dL [facility] Comment:Diabetes: >=200 mg/d L plus symptoms Blood Urea Nitrogen 19 10 - 20 mg/dL [facility] Creatinine 1.60(H) 0.80 - 1.50 mg/dL [facility] Sodium 141 135 - 145 mmol/L [facility] Potassium 3.7 3.5 - 5.0 mmol/L [facility] Comment: Please note: ??Patients with WBC >100,000 may have falsely elevated Potassium levels. ??For accurate Potassium quantification in these patients send serum separator tube (gold top) for subsequent determinations. ??Contact the Clinical Chemistry Laboratory if there are any questions. Chloride 104 98 - 107 mmol/L [facility] Carbon Dioxide 28 22 - 31 mmol/L [facility] Anion Gap 9 5 - 15 mmol/L [facility] Calcium 9.1 8.5 - 10.5 mg/dL [facility] Protein, Total 6.6 6.1 - 8.0 g/dL [facility] Albumin 4.0 3.2 - 5.2 g/dL [facility] Aspartate Aminotransferase 21 0 - 39 unit/L [facility] Alanine Aminotransferase 31 0 - 55 unit/L [facility] Alkaline Phosphatase 149(H) 40 - 130 unit/L [facility] Bilirubin, Total 0.4 0.2 - 1.3 mg/dL [facility] Est Glomerular Filtration Rate 47(L) >=60 mL/min/1. 73 m?? [facility] Comment: This patient's estimated GFR [...] Lab Lulu Jolley [place] [address] documented in this encounter Visit Diagnoses Diagnosis Metastatic renal cell carcinoma to lung, unspecified laterality Metastatic renal cell carcinoma to lung, unspecified laterality documented in this encounter Care Teams Construction Lineman Relationship Specialty Start Date End Date Juan Dempsey MD [address] [place] [address] PCP - General Emergency Medicine 08/20/21 documented as of this encounter
--- OUTSIDE RECORDS SUMMARY | 2024-03-09 10:14 | XMS_ITS | Encounter Summary ---
Author Organization [facility] Address [facility] [place] [address] Care Team Providers Care Glass Embosser Name Role Phone Juan Dempsey MD Primary Care Provider [phone] Encounter Details Date Type Department Care Team (Late st Contact Info) Description 03/01/2023 Orders [place] [phone] Judy Gonzalez, RN Social History Tobacco Use [...] [facility] [place] [address] [place] [address] 03/29/2024 12:[address] [place] [address] Albino Bartholomew MD [facility] DR HEMATOLOGY [place] [address] 04/05/2024 10:00 AM EST Office Visit Hematology [place] [address] Albino Bartholomew MD [facility] DR HEMATOLOGY [place] [address] documented as of this encounter Visit Diagnoses Not on filedocumented in this encounter Care Teams Glass Embosser Relationship Specialty Start Date End Date Juan Dempsey MD [address] [place] [address] PCP - General Emergency Medicine 08/20/21 documented as of this encounter
--- OUTSIDE RECORDS SUMMARY | 2024-03-09 10:14 | XMS_ITS | Encounter Summary ---
Author Organization [facility] Address [facility] [place] [address] Care Team Providers Care Cycle Liaison Name Role Phone Juan Dempsey MD Primary Care Provider Reason for Visit * Reason Comments Follow-up Encounter Details Date Type Department Care Team (Late st Contact Info) Description 03/17/2023 8:00 AM EST Office Visit Hematology [place] [phone] Albino Costello MD [facility] [address] [place] [address] Metastatic renal cell carcinoma to lung, unspecified [...] from the original note were not included. [facility] [place] Oncology History of Present Illness: Mr. Tenorio [...] infections or infectious symptoms. Interval History: Cristofer is in clinic for f/u on metastatic renal cell carcinoma, discussion on restaging CT scan and cabozantinib toxicity check. He's accompanied by his , Emily. 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 10/20/21 CXR ([facility]): 10/16/21: IMPRESSION 1. Unexpected finding: [...] taper. Pt prefers to get labs at [facility]. We'll send orders and I'll ask our director of education and training to f/u on results. Advised pt to [...] reassuring and Ameya plans to maintain f/u. Cristofer and Emily agree with this plan. --------- 11/26/21: Critsofer's recent MRI was [facility]. We discussed the [...] well. We will continue current regimen. 09/16/22 Cristofer developed hand-foot syndrome as well as tingling [...] Cabometyx with minimal side effects. Follows with beaming machine operator Dr. Pringle, with plans to taper [...] [facility] [place] [address] [place] [address] 03/29/2024 12:[address] [place] [address] Albino Costello MD [facility] [place] [address] 04/05/2024 10:00 AM EST Office Visit [place]ology [place] [address] Albino Costello MD [facility] [place] [address] documented as of this encounter Visit Diagnoses Diagnosis Metastatic renal cell carcinoma to lung, unspecified laterality High risk medication use Encounter for long-term (current) use of other medications Abnormal thyroid function test Nonspecific abnormal results of thyroid function study Multiple lung nodules on CT Autoimmune hepatitis documented in this encounter Care Teams Cycle Liaison Relationship Specialty Start Date End Date Juan Dempsey MD [address] [place] [address] PCP - General Emergency Medicine 08/20/21 documented as of this encounter
--- OUTSIDE RECORDS SUMMARY | 2024-03-09 10:14 | XMS_ITS | Encounter Summary ---
Author Organization [facility] Address [facility] [place] [address] Care Team Providers Care Drier Attendant Name Role Phone Juan Dempsey MD Primary Care Provider [phone] Encounter Details Date Type Department Care Team (Latest Contact Info) Description 03/16/2023 1:22 PM EST - 03/16/2023 11:59 PM EST Hospital Encounter Hematology [place] [phone] Autoimmune hepatitis; Metastatic renal cell carcinoma to [...] 10:30 AM EST Laboratory Appointment Lab at [facility] [place] On[place] [address] [place] [address] 03/29/2024 12:[address] [place] [phone] Albino Bartholomew MD [facility] DR HEMATOLOGY [place] [address] 04/05/2024 10:00 AM EST Office Visit Hematology [place] [phone] Albino Bartholomew MD [facility] DR HEMATOLOGY [place] [address] documented as of this encounter Procedures Procedure [...] Bilirubin, Direct 0.1 0.0 - 0.3 mg/dL [facility] Blood 03/16/2023 1:33 PM EST 03/16/2023 1:47 PM EST Narrative Resulting Agency Comment Spec In Lab Ana Pringle MD CHEMISTRY ORDERABLES [facility] [place] [address] * Differential, Automated (03/16/2023 1:33 PM EST) Neutrophil % 67.8 % [facility] Neutrophil Absolute 5.01 1.70 - 6.10 x10(3)/[facility] Lymph % 20.5 % [facility] Lymphocytes Abs 1.5 0.9 - 3.2 x10(3)/[facility] Monocyte % 5.6 % [facility] Monocyte Abs 0.4 0.3 - 0.9 x10(3)/[facility] Eos % 4.6 % [facility] Eosinophils Abs 0.3 0.0 - 0.4 x10(3)/[facility] Basophil % 1.2 % [facility] Baso Absolute 0.1 0.0 - 0.1 x10(3)/[facility] Immature Gran % 0.30 % [facility] Comment: Immature granulocytes(IG's)percentage and absolute count will include metamyelocytes, myelocytes, and promyelocytes. Blood smears from CBCs yielding IG's will be scanned manually for concordance. If this scan disagrees with the automated IG or if promyelocytes are noted, a manual differential will be performed. Immature Gran Absolute 0.02 0.00 - 0.04 x10(3)/[facility] Blood 03/16/2023 1:33 PM EST 03/16/2023 1:47 PM EST Narrative Resulting Agency Comment Spec In Lab Albino Bartholomew MD HEMATOLOGY ORDERABLE S [facility] [place] [address] * (ABNORMAL) Hemogram (03/16/2023 1:33 PM EST) White Blood Cell 7.4 4.0 - 9.5 x10(3)/mc L [facility] Red Blood Cell 4.28(L) 4.58 - 5.54 x10(6)/mc L [facility] Hemoglobin 13.9 13.7 - 16.5 g/dL [facility] Hematocrit 41.1 40.5 - 48.5 % [facility] Mean Cell Volume 96.0(H) 82.9 - 93.1 fL [facility] Mean Cell Hemoglobin 32.5(H) 27.5 - 32.1 pg [facility] Mean Cell Hemoglobin Concentration 33.8 32.0 - 35.7 g/dL [facility] Platelet 196 145 - 357 x10(3)/mc L [facility] RDW Standard Deviation 49.3(H) 36.0 - 45.0 fL [facility] RDW coefficient of variation 13.8 11.4 - 13.8 % [facility] Mean Platelet Volume 9.6 7.6 - 12.9 fL [facility] NRBC% auto 0.0 % [facility] NRBC Absolute 0.000 0.000 - 0.000 x10(3)/mc L [facility] Blood 03/16/2023 1:33 PM EST 03/16/2023 1:47 PM EST Narrative Resulting Agency Comment Spec In Lab Albino Bartholomew MD HEMATOLOGY ORDERABLE S Performing Organization Address City/[facility]/ZIP Co de Phone Number [facility] [place] [address] * (ABNORMAL) Comprehensive metabolic panel (non-fasting) (03/16/2023 1:33 PM EST) Glucose 124 65 - 199 mg/dL [facility] Comment:Diabetes: >=200 mg/d L plus symptoms Blood Urea Nitrogen 15 10 - 20 mg/dL [facility] Creatinine 1.49 0.80 - 1.50 mg/dL [facility] Sodium 141 135 - 145 mmol/L [facility] Potassium 3.6 3.5 - 5.0 mmol/L [facility] Comment: Please note: ??Patients with WBC >100,000 may have falsely elevated Potassium levels. ??For accurate Potassium quantification in these patients send serum separator tube (gold top) for subsequent determinations. ??Contact the Clinical Chemistry Laboratory if there are any questions. Chloride 103 98 - 107 mmol/L [facility] Carbon Dioxide 27 22 - 31 mmol/L [facility] Anion Gap 11 5 - 15 mmol/L [facility] Calcium 8.9 8.5 - 10.5 mg/dL [facility] Protein, Total 6.1 6.1 - 8.0 g/dL [facility] Albumin 4.1 3.2 - 5.2 g/dL [facility] Aspartate Aminotransferase 46(H) 0 - 39 unit/L [facility] Alanine Aminotransferase 74(H) 0 - 55 unit/L [facility] Alkaline Phosphatase 123 40 - 130 unit/L [facility] Bilirubin, Total 0.3 0.2 - 1.3 mg/dL [facility] Est Glomerular Filtration Rate 51(L) >=60 mL/min/1. 73 m?? [facility] Comment: This patient's estimated GFR [...] In Lab Albino Bartholomew MD CHEMISTRY ORDERABLES [facility] [place] [address] * (ABNORMAL) TSH (03/16/2023 1:33 PM EST) Thyroid Stimulating Hormone 5.27(H) 0.27 - 4.20 mcIU/mL [facility] Comment: Reference Interval (mcIU/mL): Females: ??First Trimester: 0.23-3.88 ??Second Trimester: 0.22-3.90 ??Third Trimester: 0.44-4.66 Blood 03/16/2023 1:33 PM EST 03/16/2023 1:47 PM EST Narrative Resulting Agency Comment Spec In Lab Albino Bartholomew MD CHEMISTRY ORDERABLES Performing Organization Address [facility] Co de Phone Number [facility] [place] [address] * T4, free (03/16/2023 1:33 PM EST) Free T4 1.21 0.93 - 1.70 ng/dL [facility] Comment: Reference Interval (ng/dL): Females: ??First Trimester: 0.97-1.68 ??Second Trimester: 0.77-1.51 ??Third Trimester: 0.77-1.49 Blood 03/16/2023 1:33 PM EST 03/16/2023 1:47 PM EST Narrative Resulting Agency Comment Spec In Lab Albino Bartholomew MD CHEMISTRY ORDERABLES Performing Organization Address [facility] Co de Phone Number [facility] [place] [address] documented in this encounter Visit Diagnoses Diagnosis Autoimmune hepatitis Metastatic renal cell carcinoma to lung, unspecified laterality High risk medication use Encounter for long-term (current) use of other medications Abnormal thyroid function test Nonspecific abnormal results of thyroid function study documented in this encounter Care Teams Drier Attendant Relationship Specialty Start Date End Date Juan Dempsey MD [address] [place] [address] PCP - General Emergency Medicine 08/20/21 documented as of this encounter
--- OUTSIDE RECORDS SUMMARY | 2024-03-09 10:14 | XMS_ITS | Encounter Summary ---
Author Organization [facility] Address [facility] [place] [address] Care Team Providers Care Voip Network Technician Name Role Phone Juan Dempsey MD Primary Care Provider [phone] Encounter Details Date Type Department Care Team (Late st Contact Info) Description 04/07/2023 Telephone Hematology [place] [address] Daxa Arriola RN Social History [...] 10:11 AM EST Message received from clinical secretary to the vice president: Cristofer called in regards to restarting his Cabometyx. Did not hear back from Rachell yesterday. Pleasecall [phone] P: Per Albino Bartholomew MD, pt to [...] [facility] Hematology Oncology [address] [place] [address] 03/29/2024 12:[address] [place] [address] Albino Bartholomew MD [facility] HEMATOLOGY [place] [address] 04/05/2024 10:00 AM EST Office Visit Hematology [place] [address] Albino Bartholomew MD [facility] DR HEMATOLOGY [place] [address] documented as of this encounter Visit Diagnoses Not on filedocumented in this encounter Care Teams Voip Network Technician Relationship Specialty Start Date End Date Juan Dempsey MD [address] [place] [address] PCP - General Emergency Medicine 08/20/21 documented as of this encounter
--- OUTSIDE RECORDS SUMMARY | 2024-03-09 10:14 | XMS_ITS | Encounter Summary ---
Author Organization [facility] Address [facility] [place] [address] Care Team Providers Care Security Officer Name Role Phone Juan Dempsey MD Primary Care Provider [phone] Encounter Details Date Type Department Care Team [...] [facility] [place] [place] [address] [place] [address] 03/29/2024 12:[address] [place] [place] [address] Albino Bartholomew MD [facility] HEMATOLOGY [place] [address] 04/05/2024 10:00 AM EST Office Visit [place] [address] Albino Bartholomew MD [facility] [address] HEMATOLOGY [place] [address] documented as of this encounter Visit Diagnoses Not on filedocumented in this encounter Care Teams Security Officer Relationship Specialty Start Date End Date Juan Dempsey MD [address] [place] [address] PCP - General Emergency Medicine 08/20/21 documented as of this encounter
--- OUTSIDE RECORDS SUMMARY | 2024-03-09 10:14 | XMS_ITS | Encounter Summary ---
Author Organization [facility] Address [facility] [place] [address] Care Team Providers Care Phlebotomy Support Tech Name Role Phone Juan Dempsey MD Primary Care Provider [phone] Encounter Details Date Type Department Care Team (Latest Contact Info) Description 04/28/2023 1:42 PM EST - 04/28/2023 11:59 PM EST Hospital Encounter [place] [phone] Metastatic renal cell carcinoma to lung, unspecified [...] 10:30 AM EST Laboratory Appointment Lab at [facility] Hematology Oncology [address] [place] [address] 03/29/2024 12:[address] [place] [place] [phone] Albino Bartholomew MD [facility] DR HEMATOLOGY [place] [address] 04/05/2024 10:00 AM EST Office Visit [place]ology [place] [address] Albino Bartholomew MD [facility] DR HEMATOLOGY [place] [address] documented as of this encounter Procedures Procedure [...] Bilirubin, Direct 0.1 0.0 - 0.3 mg/dL [facility] Blood 04/28/2023 1:47 PM EST 04/28/2023 1:53 PM EST Narrative Resulting Agency Comment Spec In Lab Ana Pringle MD CHEMISTRY ORDERABLES [facility] [place] [address] * Differential, Automated (04/28/2023 1:47 PM EST) Neutrophil % 65.7 % [facility] Neutrophil Absolute 4.70 1.70 - 6.10 x10(3)/[facility] LAB[facility] Lymph % 22.1 % [facility] Lymphocytes Abs 1.6 0.9 - 3.2 x10(3)/[facility] Monocyte % 5.6 % [facility] Monocyte Abs 0.4 0.3 - 0.9 x10(3)/[facility] Eos % 5.2 % [facility] Eosinophils Abs 0.4 0.0 - 0.4 x10(3)/[facility] Basophil % 1.3 % [facility] Baso Absolute 0.1 0.0 - 0.1 x10(3)/[facility] LAB[facility]ORY Immature Gran % 0.10 % [facility] Comment: Immature granulocytes(IG's)percentage and absolute count will include metamyelocytes, myelocytes, and promyelocytes. Blood smears from CBCs yielding IG's will be scanned manually for concordance. If this scan disagrees with the automated IG or if promyelocytes are noted, a manual differential will be performed. Immature Gran Absolute 0.01 0.00 - 0.04 x10(3)/[facility] Blood 04/28/2023 1:47 PM EST 04/28/2023 1:53 PM EST Narrative Resulting Agency Comment Spec In Lab Albino Bartholomew MD HEMATOLOGY ORDERABLE S Performing Organization Address City/[facility]/ZIP Co de Phone Number [facility] [place] [address] * (ABNORMAL) Hemogram (04/28/2023 1:47 PM EST) White Blood Cell 7.2 4.0 - 9.5 x10(3)/mc L [facility] Red Blood Cell 4.29(L) 4.58 - 5.54 x10(6)/mc L [facility] Hemoglobin 13.6(L) 13.7 - 16.5 g/dL [facility] Hematocrit 40.4(L) 40.5 - 48.5 % [facility] Mean Cell Volume 94.2(H) 82.9 - 93.1 fL [facility] Mean Cell Hemoglobin 31.7 27.5 - 32.1 pg [facility] Mean Cell Hemoglobin Concentration 33.7 32.0 - 35.7 g/dL [facility] Platelet 201 145 - 357 x10(3)/mc L [facility] RDW Standard Deviation 47.8(H) 36.0 - 45.0 fL [facility] RDW coefficient of variation 13.9(H) 11.4 - 13.8 % [facility] Mean Platelet Volume 9.6 7.6 - 12.9 fL [facility] NRBC% auto 0.0 % [facility] NRBC Absolute 0.000 0.000 - 0.000 x10(3)/mc L [facility] Blood 04/28/2023 1:47 PM EST 04/28/2023 1:53 PM EST Narrative Resulting Agency Comment Spec In Lab Albino Bartholomew MD HEMATOLOGY ORDERABLE S Performing Organization Address City/[facility]/ZIP Co de Phone Number [facility] [place] [address] * (ABNORMAL) Comprehensive metabolic panel (non-fasting) (04/28/2023 1:47 PM EST) Glucose 92 65 - 199 mg/dL [facility] Comment:Diabetes: >=200 mg/d L plus symptoms Blood Urea Nitrogen 23(H) 10 - 20 mg/dL [facility] Creatinine 1.81(H) 0.80 - 1.50 mg/dL [facility] Sodium 142 135 - 145 mmol/L [facility] Potassium 4.2 3.5 - 5.0 mmol/L [facility] Comment: Please note: ??Patients with WBC >100,000 may have falsely elevated Potassium levels. ??For accurate Potassium quantification in these patients send serum separator tube (gold top) for subsequent determinations. ??Contact the Clinical Chemistry Laboratory if there are any questions. Chloride 105 98 - 107 mmol/L [facility] Carbon Dioxide 27 22 - 31 mmol/L [facility] Anion Gap 10 5 - 15 mmol/L [facility] Calcium 9.1 8.5 - 10.5 mg/dL [facility] Protein, Total 6.5 6.1 - 8.0 g/dL [facility] Albumin 4.1 3.2 - 5.2 g/dL [facility] Aspartate Aminotransferase 40(H) 0 - 39 unit/L [facility] Alanine Aminotransferase 61(H) 0 - 55 unit/L [facility] Alkaline Phosphatase 127 40 - 130 unit/L [facility] Bilirubin, Total 0.3 0.2 - 1.3 mg/dL [facility] Est Glomerular Filtration Rate 40(L) >=60 mL/min/1. 73 m?? [facility] Comment: This patient's estimated GFR [...] Bartholomew MD CHEMISTRY ORDERABLES Performing Organization Address City/[facility] Co de Phone Number [facility] [place] [address] * TSH (04/28/2023 1:47 PM EST) Thyroid Stimulating Hormone 2.59 0.27 - 4.20 mcIU/mL [facility] Comment: Reference Interval (mcIU/mL): Females: ??First Trimester: 0.23-3.88 ??Second Trimester: 0.22-3.90 ??Third Trimester: 0.44-4.66 Blood 04/28/2023 1:47 PM EST 04/28/2023 1:53 PM EST Narrative Resulting Agency Comment Spec In Lab Albino Bartholomew MD CHEMISTRY ORDERABLES Performing Organization Address [facility] Co de Phone Number [facility] [place] [address] * T4, free (04/28/2023 1:47 PM EST) Free T4 1.57 0.93 - 1.70 ng/dL [facility] Comment: Reference Interval (ng/dL): Females: ??First Trimester: 0.97-1.68 ??Second Trimester: 0.77-1.51 ??Third Trimester: 0.77-1.49 Blood 04/28/2023 1:47 PM EST 04/28/2023 1:53 PM EST Narrative Resulting Agency Comment Spec In Lab Albino Bartholomew MD CHEMISTRY ORDERABLES Performing Organization Address [facility] Co de Phone Number [facility] [place] [address] documented in this encounter Visit Diagnoses Diagnosis Metastatic renal cell carcinoma to lung, unspecified laterality High risk medication use Encounter for long-term (current) use of other medications Abnormal thyroid function test Nonspecific abnormal results of thyroid function study Autoimmune hepatitis documented in this encounter Care Teams Phlebotomy Support Tech Relationship Specialty Start Date End Date Juan Dempsey MD [address] [place] [address] PCP - General Emergency Medicine 08/20/21 documented as of this encounter
--- OUTSIDE RECORDS SUMMARY | 2024-03-09 10:15 | XMS_ITS | Encounter Summary ---
Author Organization [facility] Address [facility] [place] [address] Care Team Providers Care Training Manager Name Role Phone Juan Dempsey MD Primary Care Provider [phone] Reason for Visit * Reason Comments Specialty Refill Management Encounter Details Date Type Department Care Team (Late st Contact Info) Description 11/09/2022 Specialty [place] [phone] Marisabel Soto, APPLIED TECHNOLOGIST Social History Tobacco Use Types Packs/Day Years [...] Peanut Medication Reconciliation Discrepancies (compared to [facility] med list) No Specialty Pharmacy [...] 10:30 AM EST Laboratory Appointment Lab at [facility] Hematology Oncology [address] [place] [address] 03/29/2024 12:[address] [place] [phone] Albino Bartholomew MD [facility] DR HEMATOLOGY [place] [address] 04/05/2024 10:00 AM EST Office Visit Hematology [place] [address] Albino Bartholomew MD [facility] DR HEMATOLOGY [place] [address] documented as of this encounter Visit Diagnoses Not on filedocumented in this encounter Care Teams Training Manager Relationship Specialty Start Date End Date Juan Dempsey MD [address] [place] [address] PCP - General Emergency Medicine 08/20/21 documented as of this encounter
--- OUTSIDE RECORDS SUMMARY | 2024-03-09 10:15 | XMS_ITS | Encounter Summary ---
Author Organization [facility] Address [facility] [place] [address] Care Team Providers Care Duct Layer Helper Name Role Phone Juan Dempsey MD Primary Care Provider [phone] Reason for Visit * Reason Comments Medication Management Medication Refill Encounter Details Date Type Department Care Team (Late st Contact Info) Description 01/11/2023 Specialty Pharm[place] [phone] Tru Prakash, [facility] Social History Tobacco Use Types [...] [facility] Hemat[facility] Oncology [address] [place] [address] 03/29/2024 12:[address] [place] [address] Albino Bartholomew MD [facility] [place] [address] 04/05/2024 10:00 AM EST Office Visit Hematology [place] [address] Albino Bartholomew MD [facility] [place] [address] documented as of this encounter Visit Diagnoses Not on filedocumented in this encounter Care Teams Duct Layer Helper Relationship Specialty Start Date End Date Juan Dempsey MD [address] [place] [address] PCP - General Emergency Medicine 08/20/21 documented as of this encounter
--- OUTSIDE RECORDS SUMMARY | 2024-03-09 10:15 | XMS_ITS | Encounter Summary ---
Author Organization [facility] Address [facility] [place] [address] Care Team Providers Care Manager Of Internal Name Role Phone Juan Dempsey MD Primary Care Provider [phone] Reason for Visit * Reason Comments Specialty Pharmacy Review Cabometyx 40mg tablet Encounter Details Date Type Department Care Team (Late st Contact Info) Description 09/16/2022 Specialty [place] [phone] Kelin Chong, [facility] Social History Tobacco Use Types [...] Chong - 09/16/2022 11:59 PM EDT The [facility] has completed a benefits investigation for Cristofer Tenorio to review their eligibility to fill at [facility]. Per patient's medication list they are prescribedCabometyx 40mg tablet and the medication is able to be filled at the [facility]. The patient is currently filling the medication through Specialty Pharmacy with a $0 copay. PA approved until 2025 documented in this encounter Plan of Treatment Upcoming Encounters Date Type Department Care Team (Late st Contact Info) Description 03/29/2024 10:30 AM EST Laboratory Appointment Lab at [facility] Hematology Oncology [address] [place] [address] 03/29/2024 12:[address] [place] [address] Albino Bartholomew MD [facility] DR HEMATOLOGY [place] [address] 04/05/2024 10:00 AM EST Office Visit Hematology [place] [address] Albino Bartholomew MD [facility] DR HEMATOLOGY [place] [address] documented as of this encounter Visit Diagnoses Not on filedocumented in this encounter Care Teams Manager Of Internal Relationship Specialty Start Date End Date Juan Dempsey MD [address] [place] [address] PCP - General Emergency Medicine 08/20/21 documented as of this encounter
--- OUTSIDE RECORDS SUMMARY | 2024-03-09 10:15 | XMS_ITS | Encounter Summary ---
Author Organization [facility] Address [facility] [place] [address] Care Team Providers Care Medical Doctor Nuclear Medicine Name Role Phone Juan Dempsey MD Primary Care Provider [phone] Encounter Details Date Type Department Care Team [...] [facility] Hematology Oncology [address] [place] [address] 03/29/2024 12:[address] [place] [address] Albino Bartholomew MD [facility] DR [place] [address] 04/05/2024 10:00 AM EST Office Visit [place]ology [place] [address] Albino Bartholomew MD [facility] DR [place] [address] documented as of this encounter Visit Diagnoses Not on filedocumented in this encounter Care Teams Medical Doctor Nuclear Medicine Relationship Specialty Start Date End Date Juan Dempsey MD [address] [place] [address] PCP - General Emergency Medicine 08/20/21 documented as of this encounter
--- OUTSIDE RECORDS SUMMARY | 2024-03-09 10:15 | XMS_ITS | Encounter Summary ---
Author Organization [facility] Address [facility] [place] [address] Care Team Providers Care Building Certifier Name Role Phone Juan Dempsey MD Primary Care Provider [phone] Reason for Visit * Reason Comments Medication Refill Encounter Details Date Type Department Care Team (Late st Contact Info) Description 11/23/2022 Refill [place] [address] Ana Pringle MD [facility] [place] [address] Autoimmune hepatitis Social History Tobacco Use Types [...] EST Laboratory Appointment Lab at [facility] Hematology Oncology [address] [place] [address] 03/29/2024 12:[address] [place] [address] Albino Bartholomew MD [facility] DR [place] [address] 04/05/2024 10:00 AM EST Office Visit Hematology [place] [address] Albino Bartholomew MD [facility] DR [place] [address] documented as of this encounter Visit Diagnoses Diagnosis Autoimmune hepatitis documented in this encounter Care Teams Building Certifier Relationship Specialty Start Date End Date Juan Dempsey MD [address] [place] [address] PCP - General Emergency Medicine 08/20/21 documented as of this encounter
--- OUTSIDE RECORDS SUMMARY | 2024-03-09 10:15 | XMS_ITS | Encounter Summary ---
Author Organization [facility] Address [facility] [place] [address] Care Team Providers Care Talent Development Analyst Name Role Phone Juan Dempsey MD Primary Care Provider [phone] Encounter Details Date Type Department Care Team [...] [facility] [place] [place] Hematology Oncology [address] [place] [address] 03/29/2024 12:[address] [place] [place] [address] Albino Bartholomew MD [facility] [address] [place] [address] 04/05/2024 10:00 AM EST Office Visit [place]ology [place] [address] Albino Bartholomew MD [facility] [address] [place] [address] documented as of this encounter Visit Diagnoses Not on filedocumented in this encounter Care Teams Talent Development Analyst Relationship Specialty Start Date End Date Juan Dempsey MD [address] [place] [address] PCP - General Emergency Medicine 08/20/21 documented as of this encounter
--- OUTSIDE RECORDS SUMMARY | 2024-03-09 10:15 | XMS_ITS | Encounter Summary ---
Author Organization [facility] Address [facility] [place] [address] Care Team Providers Care Program Counselor Name Role Phone Juan Dempsey MD Primary Care Provider [phone] Encounter Details Date Type Department Care Team (Latest Contact Info) Description 11/06/2022 9:50 AM EDT - 11/06/2022 11:59 PM EDT Hospital Encounter Hematology [place] [phone] Metastatic renal cell carcinoma to lung, unspecified [...] 10:30 AM EST Laboratory Appointment Lab at [facility] Hematology Oncology [address] [place] [address] 03/29/2024 12:[address] [place] [address] Albino Bartholomew MD [facility] DR [place] [address] 04/05/2024 10:00 AM EST Office Visit Hematology [place] [address] Albino Bartholomew MD [facility] DR [place] [address] Scheduled Orders Name Type Priority Associated Diagnoses [...] 10:00 AM EDT) Neutrophil % 70.9 % [facility] Neutrophil Absolute 5.96 1.70 - 6.10 x10(3)/[facility] LAB[facility] Lymph % 23.2 % [facility] Lymphocytes Abs 2.0 0.9 - 3.2 x10(3)/[facility] LABOR[facility]ORY Monocyte % 3.3 % [facility] Monocyte Abs 0.3 0.3 - 0.9 x10(3)/[facility]ORY Eos % 1.3 % [facility] Eosinophils Abs 0.1 0.0 - 0.4 x10(3)/[facility] Basophil % 0.8 % [facility] Baso Absolute 0.1 0.0 - 0.1 x10(3)/[facility]ORY Immature Gran % 0.50 % [facility] Comment: Immature granulocytes(IG's)percentage and absolute count will include metamyelocytes, myelocytes, and promyelocytes. Blood smears from CBCs yielding IG's will be scanned manually for concordance. If this scan disagrees with the automated IG or if promyelocytes are noted, a manual differential will be performed. Immature Gran Absolute 0.04 0.00 - 0.04 x10(3)/[facility] Blood 11/06/2022 10:0 0 AM EDT 11/06/2022 10:11 AM EDT Narrative Resulting Agency Comment Spec In Lab Albino Bartholomew MD HEMATOLOGY ORDERABLE S [facility] [place] [address] * (ABNORMAL) Hemogram (11/06/2022 10:00 AM EDT) White Blood Cell 8.4 4.0 - 9.5 x10(3)/mc L [facility] Red Blood Cell 4.67 4.58 - 5.54 x10(6)/mc L [facility] Hemoglobin 15.2 13.7 - 16.5 g/dL [facility] Hematocrit 44.6 40.5 - 48.5 % [facility] Mean Cell Volume 95.5(H) 82.9 - 93.1 fL [facility] Mean Cell Hemoglobin 32.5(H) 27.5 - 32.1 pg [facility] Mean Cell Hemoglobin Concentration 34.1 32.0 - 35.7 g/dL [facility] Platelet 164 145 - 357 x10(3)/mc L [facility] RDW Standard Deviation 46.5(H) 36.0 - 45.0 fL [facility] RDW coefficient of variation 13.2 11.4 - 13.8 % [facility] Mean Platelet Volume 9.4 7.6 - 12.9 fL [facility] NRBC% auto 0.0 % [facility] NRBC Absolute 0.000 0.000 - 0.000 x10(3)/mc L [facility] Blood 11/06/2022 10:0 0 AM EDT 11/06/2022 10:11 AM EDT Narrative Resulting Agency Comment Spec In Lab Albino Bartholomew MD HEMATOLOGY ORDERABLE S [facility] [place] [address] * T4, free (11/06/2022 10:00 AM EDT) Free T4 1.32 0.93 - 1.70 ng/dL [facility] Comment: Reference Interval (ng/dL): Females: ??First Trimester: 0.97-1.68 ??Second Trimester: 0.77-1.51 ??Third Trimester: 0.77-1.49 Blood 11/06/2022 10:0 0 AM EDT 11/06/2022 10:11 AM EDT Narrative Resulting Agency Comment Spec In Lab Albino Bartholomew MD CHEMISTRY ORDERABLES Performing Organization Address [facility] Co de Phone Number [facility] [place] [address] * (ABNORMAL) TSH (11/06/2022 10:00 AM EDT) Thyroid Stimulating Hormone 6.47(H) 0.27 - 4.20 mcIU/mL [facility] Comment: Reference Interval (mcIU/mL): Females: ??First Trimester: 0.23-3.88 ??Second Trimester: 0.22-3.90 ??Third Trimester: 0.44-4.66 Blood 11/06/2022 10:0 0 AM EDT 11/06/2022 10:11 AM EDT Narrative Resulting Agency Comment Spec In Lab Albino Bartholomew MD CHEMISTRY ORDERABLES Performing Organization Address [facility] de Phone Number [facility] [place] [address] * (ABNORMAL) Comprehensive metabolic panel (non-fasting) (11/06/2022 10:00 AM EDT) Glucose 108 65 - 199 mg/dL [facility] Comment:Diabetes: >=200 mg/d L plus symptoms Blood Urea Nitrogen 21(H) 10 - 20 mg/dL [facility] Creatinine 1.31 0.80 - 1.50 mg/dL [facility] Sodium 141 135 - 145 mmol/L [facility] Potassium 3.5 3.5 - 5.0 mmol/L [facility] Comment: Please note: ??Patients with WBC >100,000 may have falsely elevated Potassium levels. ??For accurate Potassium quantification in these patients send serum separator tube (gold top) for subsequent determinations. ??Contact the Clinical Chemistry Laboratory if there are any questions. Chloride 103 98 - 107 mmol/L [facility] Carbon Dioxide 29 22 - 31 mmol/L [facility] Anion Gap 9 5 - 15 mmol/L [facility] Calcium 8.9 8.5 - 10.5 mg/dL [facility] Protein, Total 6.6 6.1 - 8.0 g/dL [facility] Albumin 4.0 3.2 - 5.2 g/dL [facility] Aspartate Aminotransferase 37 0 - 39 unit/L [facility] Alanine Aminotransferase 57(H) 0 - 55 unit/L [facility] Alkaline Phosphatase 107 40 - 130 unit/L [facility] Bilirubin, Total 0.3 0.2 - 1.3 mg/dL [facility] Est Glomerular Filtration Rate 60 >=60 mL/min/1. 73 m?? [facility] Comment: This patient's estimated GFR [...] CHEMISTRY ORDERABLES Performing Organization Address City/State/[facility] Co de Phone Number [facility] [place] [address] documented in this encounter Visit Diagnoses Diagnosis Metastatic renal cell carcinoma to lung, unspecified laterality High risk medication use Encounter for long-term (current) use of other medications Abnormal thyroid function test Nonspecific abnormal results of thyroid function study documented in this encounter Care Teams Program Counselor Relationship Specialty Start Date End Date Juan Dempsey MD [address] [place] [address] PCP - General Emergency Medicine 08/20/21 documented as of this encounter
--- OUTSIDE RECORDS SUMMARY | 2024-03-09 10:15 | XMS_ITS | Encounter Summary ---
Author Organization [facility] Address [facility] [place] [address] Care Team Providers Care Database Design Analyst Name Role Phone Juan Dempsey MD Primary Care Provider [phone] Encounter Details Date Type Department Care Team (Late st Contact Info) Description 12/07/2022 Refill [place]ematology [place] [phone] Daxa Arriola RN Social History Tobacco Use [...] Message received from clinical medical secretary receptionist: We received a refill request for cristofer. Levothyroxine 50 mcg tablet 50 [facility] [address] [place] [address] P [phone] F [phone] Review of chart suggests it is an appropriate refill. Order pended and routed to Edith Joaquin APRN for approval. documented in this encounter Plan of Treatment Upcoming Encounters Date Type Department Care Team (Late st Contact Info) Description 03/29/2024 10:30 AM EST Laboratory Appointment Lab at [facility] Hematology Oncology [address] [place] [address] 03/29/2024 12:[address] [place] [place] [address] Albino Bartholomew MD [facility] [address] [place] [address] 04/05/2024 10:00 AM EST Office Visit Hematology [place] [address] Albino Bartholomew MD [facility] [address] [place] [address] documented as of this encounter Visit Diagnoses Not on filedocumented in this encounter Care Teams Database Design Analyst Relationship Specialty Start Date End Date Juan Dempsey MD [address] [place] [address] PCP - General Emergency Medicine 08/20/21 documented as of this encounter
--- OUTSIDE RECORDS SUMMARY | 2024-03-09 10:15 | XMS_ITS | Encounter Summary ---
Author Organization [facility] Address 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 10/20/21 CXR ([facility]): 10/16/21: IMPRESSION 1. Unexpected [...] CT ABD/Pelvis Assessment: Cristofer Tenorio is a 67 y.o. referred by [...] taper. Pt prefers to get labs at [facility]. We'll send orders and I'll ask our display manager to f/u on results. Advised pt [...] AM EST Laboratory Appointment Lab at [facility] Hematology Oncology [address] [place], [place] [id number] 03/29/2024 12:[address] [place] [address] Albino Bartholomew MD [facility] DR HEMATOLOGY [place] [address] 04/05/2024 10:00 AM EST Office Visit Hematology [place] [address] Albino Bartholomew MD [facility] DR HEMATOLOGY [place] [address] documented as of this encounter Visit Diagnoses Diagnosis Metastatic renal cell carcinoma to lung, unspecified laterality High risk medication use Encounter for long-term (current) use of other medications Abnormal thyroid function test Nonspecific abnormal results of thyroid function study Autoimmune hepatitis Elevated LFTs Other abnormal blood chemistry documented in this encounter Care Teams Examination Grader Relationship Specialty Start Date End Date Juan Dempsey MD [address] [place] [address] PCP - General Emergency Medicine 08/20/21 documented as of this encounter
--- OUTSIDE RECORDS SUMMARY | 2024-03-09 10:15 | XMS_ITS | Encounter Summary ---
Author Organization Replaced By [facility] Address [facility] [place] [address] Care Team Providers Care Visitor Services Coordinator Name Role Phone Juan Dempsey MD Primary Care Provider [phone] Encounter Details Date Type Department Care Team [...] 10:30 AM EST Laboratory Appointment Lab at [facility] Hematology Oncology [address] [place] [address] 03/29/2024 12:[address] [place] [place] [address] Albino Bartholomew MD [facility] DR [place] [address] 04/05/2024 10:00 AM EST Office Visit [place]ematology [place] [address] Albino Bartholomew MD [facility] DR [place] [address] documented as of this encounter Visit Diagnoses Not on filedocumented in this encounter Care Teams Visitor Services Coordinator Relationship Specialty Start Date End Date Juan Dempsey MD [address] [place] [address] PCP - General Emergency Medicine 08/20/21 documented as of this encounter
--- OUTSIDE RECORDS SUMMARY | 2024-03-09 10:15 | XMS_ITS | Encounter Summary ---
Author Organization [facility] Address [facility] [place] [address] Care Team Providers Care Pool Manager Name Role Phone Juan Dempsey MD Primary Care Provider [phone] Encounter Details Date Type Department Care Team [...] [facility] H[facility] Oncology [address] [place] [address] 03/29/2024 12:[address] [place] [address] Albino Bartholomew MD [facility] DR [place] [address] 04/05/2024 10:00 AM EST Office Visit Hematology [place] [address] Albino Bartholomew MD [facility] DR [place] [address] documented as of this encounter Visit Diagnoses Not on filedocumented in this encounter Care Teams Pool Manager Relationship Specialty Start Date End Date Juan Dempsey MD [address] [place] [address] PCP - General Emergency Medicine 08/20/21 documented as of this encounter
--- OUTSIDE RECORDS SUMMARY | 2024-03-09 10:15 | XMS_ITS | Encounter Summary ---
Author Organization [facility] Address [facility] Michael [facility] [place] [address] Care Team Providers Care Waffle Machine Operator Name Role Phone Juan Dempsey MD Primary Care Provider [phone] Reason for Referral * Diagnostic Test (Routine) - Closed Specialty Diagnoses / Procedures Referred By Contac t Referred To Contact Radiology Diagnoses Metastatic renal cell carcinoma to lung, unspecified laterality Procedures CT Chest Abdomen Pelvis w Contrast (Generic) Albino Barthoolmew MD [facility] [address] [place] [address] [facility] [place] [address] Referral ID Status Reason Start Date Expiration Date V isits Requested Visits Authorized [id number] Closed Specialty Service Requested 10/14/2022 04/15/2024 1 1 Reason for Visit * Reason Comments Follow-up Follow up with labs Encounter Details Date Type Department Care Team (Late st Contact Info) Description 10/14/2022 1:30 PM EDT Office Visit Hematology [place] [address] Albino Bartholomew MD [facility] [address] [place] [address] Kyle Donohue PA [facility] DR HEMATOLOGY AND ONCOLOGY [place] [phone] Metastatic renal cell carcinoma to lung, unspecified [...] daughter; one step daughter as well 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 05/20/21 CT ABD/Pelvis Assessment: aRymundo Tenorio is a 67 y.o. referred by [...] taper. Pt prefers to get labs at [facility]. We'll send orders and I'll ask our college counselor to f/u on results. Advised pt to [...] [facility] Hematology Oncology [address] [place] [address] 03/29/2024 12:[address] [place] [address] Albino Bartholomew MD [facility] [address] [place] [address] 04/05/2024 10:00 AM EST Office Visit [place]ology [place] [address] Albino Bartholomew MD [facility] [address] [place] [address] documented as of this encounter Results * [...] have questions please contact the health care analyst that requested your imaging first. ? Narrative 11/04/2022 1:30 PM EDT EXAMINATION: CT [...] who have questions please contactthe health care analyst that requested your imaging first. Electronically signed by: Rich Baldwin MD, [facility]([phone]), at 11/04/2022 1:30 PM Albino Bartholomew MD [...] laterality documented in this encounter Care Teams Waffle Machine Operator Relationship Specialty Start Date End Date Juan Dempsey MD [address] [place] [address] PCP - General Emergency Medicine 08/20/21 documented as of this encounter
--- OUTSIDE RECORDS SUMMARY | 2024-03-09 10:15 | XMS_ITS | Encounter Summary ---
Author Organization [facility] Address [facility] [place] [address] Care Team Providers Care Phonograph Needle Tip Maker Name Role Phone Juan Dempsey MD Primary Care Provider [phone] Encounter Details Date Type Department Care Team (Late st Contact Info) Description 01/13/2023 Orders [place] [address] Judy Gonzalez, RN Autoimmune hepatitis Social History [...] [facility] Hematology Oncology [address] [place] [address] 03/29/2024 12:[address] [place] [address] Albino Bartholomew MD [facility] DR HEMATOLOGY [place] [address] 04/05/2024 10:00 AM EST Office Visit Hematology [place] [address] Albino Bartholomew MD [facility] [address] [place] [address] documented as of this encounter Visit Diagnoses Diagnosis Autoimmune hepatitis documented in this encounter Care Teams Phonograph Needle Tip Maker Relationship Specialty Start Date End Date Juan Dempsey MD [address] [place] [address] PCP - General Emergency Medicine 08/20/21 documented as of this encounter
--- OUTSIDE RECORDS SUMMARY | 2024-03-09 10:15 | XMS_ITS | Encounter Summary ---
Author Organization [facility] Address [facility] [place] [address] Care Team Providers Care Plant Anatomist Name Role Phone Juan Dempsey MD Primary Care Provider [phone] Encounter Details Date Type Department Care Team (Late st Contact Info) Description 01/13/2023 Orders [place] [address] Ana Pringle MD [facility] [place] [address] Drug-induced liver injury Social History Tobacco Use [...] [facility] Hemat[facility] Oncology [address] [place] [address] 03/29/2024 12:[address] [place] [address] Albino Bartholomew MD [facility] [address] [place] [address] 04/05/2024 10:00 AM EST Office Visit Hematology [place] [address] Albino Bartholomew MD [facility] [address] [place] [address] documented as of this encounter Visit Diagnoses Diagnosis Drug-induced liver injury documented in this encounter Care Teams Plant Anatomist Relationship Specialty Start Date End Date Juan Dempsey MD [address] [place] [address] PCP - General Emergency Medicine 08/20/21 documented as of this encounter
--- OUTSIDE RECORDS SUMMARY | 2024-03-09 10:15 | XMS_ITS | Encounter Summary ---
Author Organization [facility] Address [facility] Michael [facility] [place] [address] Care Team Providers Care Warehouse Material Handler Name Role Phone Juan Dempsey MD Primary Care Provider [phone] Reason for Visit * Reason Comments Follow-up Encounter Details Date Type Department Care Team (Late st Contact Info) Description 01/13/2023 10:00 AM EDT Office Visit [place]ematology [place] [address] Albino Costello MD [facility] DR HEMATOLOGY [place] [address] Metastatic renal cell carcinoma to lung, unspecified [...] from the original note were not included. [facility] Oncology History of Present Illness: Mr. [...] taper. Pt prefers to get labs at [facility]. We'll send orders and I'll ask our special education instructor to f/u on results. Advised pt [...] Cabometyx with minimal side effects. Follows with oyster unloader Dr. Pringle, with plans to taper him [...] [facility] Hematology Oncology [address] [place] [address] 03/29/2024 12:[address] [place] [place] [address] Albino Costello MD [facility] DR HEMATOLOGY [place] [address] 04/05/2024 10:00 AM EST Office Visit [place]ematology [place] [address] Albino Costello MD [facility] DR HEMATOLOGY [place] [address] documented as of this encounter Visit Diagnoses Diagnosis Metastatic renal cell carcinoma to lung, unspecified laterality Abnormal thyroid function test Nonspecific abnormal results of thyroid function study Autoimmune hepatitis Renal cell carcinoma of left kidney High risk medication use Encounter for long-term (current) use of other medications documented in this encounter Care Teams Warehouse Material Handler Relationship Specialty Start Date End Date Juan Dempsey MD [address] [place] [address] PCP - General Emergency Medicine 08/20/21 documented as of this encounter
--- OUTSIDE RECORDS SUMMARY | 2024-03-09 10:15 | XMS_ITS | Encounter Summary ---
Author Organization [facility] [place] [address] Care Team Providers Care Job Checker Name Role Phone Juan Dempsey MD Primary Care Provider [phone] Encounter Details Date Type Department Care Team (Latest Contact Info) Description 12/01/2022 1:33 PM EDT - 12/01/2022 11:59 PM EDT Hospital Encounter [place]ematology [place] [address] Metastatic renal cell carcinoma to lung, unspecified [...] 10:30 AM EST Laboratory Appointment Lab at [facility] Hematology Oncology [address] [place] [address] 03/29/2024 12:[address] [place] [address] Albino Bartholomew MD [facility] DR HEMATOLOGY [place] [address] 04/05/2024 10:00 AM EST Office Visit Hematology [place] [address] Albino Bartholomew MD [facility] DR HEMATOLOGY [place] [address] documented as of this encounter Procedures Procedure [...] * Bilirubin, Direct (12/01/2022 1:45 PM EDT) Bilirubin, Direct 0.1 0.0 - 0.3 mg/dL [facility] Blood 12/01/2022 1:45 PM EDT 12/01/2022 1:54 PM EDT Narrative Resulting Agency Comment Spec In Lab Ana Pringle MD CHEMISTRY ORDERABLES Performing Organization Address City/State/[facility] Co de Phone Number [facility] [place] [address] * (ABNORMAL) Differential, Automated (12/01/2022 1:45 PM EDT) Pathologist [facility] Neutrophil % 72.8 % [facility] Neutrophil Absolute 6.89(H) 1.70 - 6.10 x10(3)/mc L [facility] Lymph % 20.0 % [facility] Lymphocytes Abs 1.9 0.9 - 3.2 x10(3)/mc L [facility] Monocyte % 4.0 % [facility] Monocyte Abs 0.4 0.3 - 0.9 x10(3)/mc L [facility] Eos % 1.7 % [facility] Eosinophils Abs 0.2 0.0 - 0.4 x10(3)/mc L [facility] Basophil % 1.1 % [facility] Baso Absolute 0.1 0.0 - 0.1 x10(3)/mc L [facility] Immature Gran % 0.40 % [facility] Comment: Immature granulocytes(IG's)percentage and absolute count will include metamyelocytes, myelocytes, and promyelocytes. Blood smears from CBCs yielding IG's will be scanned manually for concordance. If this scan disagrees with the automated IG or if promyelocytes are noted, a manual differential will be performed. Immature Gran Absolute 0.04 0.00 - 0.04 x10(3)/mc L [facility] Blood 12/01/2022 1:45 PM EDT 12/01/2022 1:54 PM EDT Narrative Resulting Agency Comment Spec In Lab Albino Bartholomew MD HEMATOLOGY ORDERABLE S Performing Organization Address City/[facility]/ZIP Co de Phone Number [facility] [place] [address] * (ABNORMAL) Hemogram (12/01/2022 1:45 PM EDT) White Blood Cell 9.5 4.0 - 9.5 x10(3)/mc L [facility] Red Blood Cell 4.44(L) 4.58 - 5.54 x10(6)/mc L [facility] Hemoglobin 14.2 13.7 - 16.5 g/dL [facility] Hematocrit 42.9 40.5 - 48.5 % [facility] Mean Cell Volume 96.6(H) 82.9 - 93.1 fL [facility] Mean Cell Hemoglobin 32.0 27.5 - 32.1 pg [facility] Mean Cell Hemoglobin Concentration 33.1 32.0 - 35.7 g/dL [facility] Platelet 160 145 - 357 x10(3)/mc L [facility] RDW Standard Deviation 49.2(H) 36.0 - 45.0 fL [facility] RDW coefficient of variation 13.9(H) 11.4 - 13.8 % [facility] Mean Platelet Volume 9.5 7.6 - 12.9 fL [facility] NRBC% auto 0.0 % [facility] NRBC Absolute 0.000 0.000 - 0.000 x10(3)/mc L [facility] Blood 12/01/2022 1:45 PM EDT 12/01/2022 1:54 PM EDT Narrative Resulting Agency Comment Spec In Lab Albino Bartholomew MD HEMATOLOGY ORDERABLE S [facility] [place] [place] [address] * (ABNORMAL) Comprehensive metabolic panel (non-fasting) (12/01/2022 1:45 PM EDT) Glucose 122 65 - 199 mg/dL [facility] Comment:Diabetes: >=200 mg/d L plus symptoms Blood Urea Nitrogen 24(H) 10 - 20 mg/dL [facility] Creatinine 1.39 0.80 - 1.50 mg/dL [facility] Sodium 139 135 - 145 mmol/L [facility] Potassium 3.4(L) 3.5 - 5.0 mmol/L [facility] Comment: Please note: ??Patients with WBC >100,000 may have falsely elevated Potassium levels. ??For accurate Potassium quantification in these patients send serum separator tube (gold top) for subsequent determinations. ??Contact the Clinical Chemistry Laboratory if there are any questions. Chloride 103 98 - 107 mmol/L [facility] Carbon Dioxide 27 22 - 31 mmol/L [facility] Anion Gap 9 5 - 15 mmol/L [facility] Calcium 8.7 8.5 - 10.5 mg/dL [facility] Protein, Total 6.1 6.1 - 8.0 g/dL [facility] Albumin 3.7 3.2 - 5.2 g/dL [facility] Aspartate Aminotransferase 30 0 - 39 unit/L [facility] Alanine Aminotransferase 46 0 - 55 unit/L [facility] Alkaline Phosphatase 105 40 - 130 unit/L [facility] Bilirubin, Total 0.2 0.2 - 1.3 mg/dL [facility] Est Glomerular Filtration Rate 56(L) >=60 mL/min/1. 73 m?? [facility] Comment: This patient's estimated GFR was [...] Bartholomew MD CHEMISTRY ORDERABLES Performing Organization Address City/[facility]/ZIP Co de Phone Number [facility] [place] [place] [address] * (ABNORMAL) TSH (12/01/2022 1:45 PM EDT) Thyroid Stimulating Hormone 4.26(H) 0.27 - 4.20 mcIU/mL [facility] Comment: Reference Interval (mcIU/mL): Females: ??First Trimester: 0.23-3.88 ??Second Trimester: 0.22-3.90 ??Third Trimester: 0.44-4.66 Blood 12/01/2022 1:45 PM EDT 12/01/2022 1:54 PM EDT Narrative Resulting Agency Comment Spec In Lab Albino Bartholomew MD CHEMISTRY ORDERABLES Performing Organization Address [facility] Co de Phone Number [facility] [place] [place] [address] * T4, free (12/01/2022 1:45 PM EDT) Free T4 1.47 0.93 - 1.70 ng/dL [facility] Comment: Reference Interval (ng/dL): Females: ??First Trimester: 0.97-1.68 ??Second Trimester: 0.77-1.51 ??Third Trimester: 0.77-1.49 Blood 12/01/2022 1:45 PM EDT 12/01/2022 1:54 PM EDT Narrative Resulting Agency Comment Spec In Lab Albino Bartholomew MD CHEMISTRY ORDERABLES Performing Organization Address City/[facility] Co de Phone Number [facility] [place] [place] [address] documented in this encounter Visit Diagnoses Diagnosis Metastatic renal cell carcinoma to lung, unspecified laterality High risk medication use Encounter for long-term (current) use of other medications Abnormal thyroid function test Nonspecific abnormal results of thyroid function study Autoimmune hepatitis documented in this encounter Care Teams Job Checker Relationship Specialty Start Date End Date Juan Dempsey MD [address] [place] [address] PCP - General Emergency Medicine 08/20/21 documented as of this encounter
--- OUTSIDE RECORDS SUMMARY | 2024-03-09 10:15 | XMS_ITS | Encounter Summary ---
Author Organization [facility] Address [facility] [place] [address] Care Team Providers Care Laundry Press Operator Name Role Phone Juan Dempsey MD Primary Care Provider [phone] Encounter Details Date Type Department Care Team [...] 10:30 AM EST Laboratory Appointment Lab at [facility] Hematology Oncology [address] [place] [address] 03/29/2024 12:[address] [place] [address] Albino Bartholomew MD [facility] DR H[place]AT[place] [address] 04/05/2024 10:00 AM EST Office Visit Hematology [place] [address] Albino Bartholomew MD [facility] DR [place]EMAT[place] [address] documented as of this encounter Visit Diagnoses Not on filedocumented in this encounter Care Teams Laundry Press Operator Relationship Specialty Start Date End Date Juan Dempsey MD [address] [place] [address] PCP - General Emergency Medicine 08/20/21 documented as of this encounter
--- OUTSIDE RECORDS SUMMARY | 2024-03-09 10:15 | XMS_ITS | Encounter Summary ---
Author Organization [facility] Address [facility] [place] [address] Care Team Providers Care Set Up And Lay Out Inspector Name Role Phone Juan Dempsey MD Primary Care Provider [phone] Encounter Details Date Type Department Care Team [...] AM EST Laboratory Appointment Lab at [facility] [place] [address] [place] [address] 03/29/2024 12:[address] [place] [address] Albino Bartholomew MD [facility] [address] HEMATOLOGY [place] [address] 04/05/2024 10:00 AM EST Office Visit [place]ematology [place] [address] Albino Bartholomew MD [facility] [address] HEMATOLOGY [place] [address] documented as of this encounter Visit Diagnoses Not on filedocumented in this encounter Care Teams Set Up And Lay Out Inspector Relationship Specialty Start Date End Date Juan Dempsey MD [address] [place] [address] PCP - General Emergency Medicine 08/20/21 documented as of this encounter
--- OUTSIDE RECORDS SUMMARY | 2024-03-09 10:15 | XMS_ITS | Encounter Summary ---
Author Organization [facility] Address [facility] [place] [address] Care Team Providers Care Puppet Developer Name Role Phone Juan Dempsey MD Primary Care Provider [phone] Reason for Visit * Reason Comments Medication Management Encounter Details Date Type Department Care Team (Late st Contact Info) Description 09/16/2022 Specialty [place] [address] Camilla Lopez Constance Social History [...] Plan: Refill Specialty Pharmacy Consultation; Camilla Lopez [facility] Comprehensive Medication Management (CMM) Cristofer Oh Davey [...] beneficiary Provider: plan sponsor pharmacist [facility] Follow-up Time Spent: 1-15 min Method of Contact: by telephone Cognitive Ability: good Cognitive Impairment Status Verified this Year: no Allergies and Drug intolerance: Allergies Allergen Reactions ??? Grass Pollen-Orchardgrass, Standard ??? Peanut Medication Reconciliation Discrepancies (compared to [facility] med list) -reconciled Specialty Pharmacy Refill Questionnaire [...] made at the appointment and that [facility] is providing recommendations (summary located at top of note) for provider review and follow up. Camilla Lopez RPH 09/16/22 4:21 PM documented in this encounter Plan of Treatment Upcoming Encounters Date Type Department Care Team (Late st Contact Info) Description 03/29/2024 10:30 AM EST Laboratory Appointment Lab at [facility] [place]ology Oncology [address] [place] [address] 03/29/2024 12:[address] [place] [address] Albino Bartholomew MD [facility] [place] [address] 04/05/2024 10:00 AM EST Office Visit Hematology [place] [address] Albino Bartholomew MD [facility] [place] [address] documented as of this encounter Visit Diagnoses Not on filedocumented in this encounter Care Teams Puppet Developer Relationship Specialty Start Date End Date Juan Dempsey MD [address] [place] [address] PCP - General Emergency Medicine 08/20/21 documented as of this encounter
--- OUTSIDE RECORDS SUMMARY | 2024-03-09 10:15 | XMS_ITS | Encounter Summary ---
Author Organization [facility] Address [facility] [place] [address] Care Team Providers Care Contact Lens Manufacturer Name Role Phone Juan Dempsey MD Primary Care Provider [phone] Reason for Visit * Reason Comments Follow-up Encounter Details Date Type Department Care Team (Late st Contact Info) Description 12/01/2022 3:00 PM EDT Office Visit [place] [address] HEMATOLOGY AND ONCOLOGY [place], [place] [id number] Metastatic renal cell carcinoma to lung, unspecified laterality; High risk medication use; Abnormal thyroid function test Social History Tobacco Use Types Packs/Day Years Used Date Smoking Tobacco: Never Smokeless Tobacco: Never Alcohol Use Standard Drinks/Week Comments Never 0 (1 standard drink = 0.6 oz pur e alcohol) Overall Financial Resource Strain (CARDIA) Sergio ashlye Date Recorded How hard is it for [...] from the original note were not included. [facility] Oncology History of Present Illness: Mr. 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 We'll send orders and I'll ask our painter chassis to f/u on results. Advised pt to [...] [facility] Hematology Oncology [address] [place] [address] 03/29/2024 12:[address] [place] [address] Albino Bartholomew MD [facility] DR HEMATOLOGY [place] [address] 04/05/2024 10:00 AM EST Office Visit [place]ology [place] [address] Albino Bartholomew MD [facility] DR HEMATOLOGY [place] [address] documented as of this encounter Visit Diagnoses Diagnosis Metastatic renal cell carcinoma to lung, unspecified laterality High risk medication use Encounter for long-term (current) use of other medications Abnormal thyroid function test Nonspecific abnormal results of thyroid function study documented in this encounter Care Teams Contact Lens Manufacturer Relationship Specialty Start Date End Date Juan Dempsey MD [address] [place] [address] PCP - General Emergency Medicine 08/20/21 documented as of this encounter
--- OUTSIDE RECORDS SUMMARY | 2024-03-09 10:15 | XMS_ITS | Encounter Summary ---
Author Organization [facility] Address [facility] [place] [address] Care Team Providers Care Document Management Analyst Name Role Phone Juan Dempsey MD Primary Care Provider [phone] Encounter Details Date Type Department Care Team (Latest Contact Info) Description 01/13/2023 8:30 AM EDT - 01/13/2023 11:59 PM EDT Hospital Encounter Hematology [place] [address] Metastatic renal cell carcinoma to lung, unspecified [...] [facility] [place] [address] [place] [address] 03/29/2024 12:[address] [place] [address] Albino Bartholomew MD [facility] DR [place] [address] 04/05/2024 10:00 AM EST Office Visit Hematology [place] [address] Albino Bartholomew MD [facility] DR [place] [address] documented as of this encounter Procedures Procedure [...] Gold Tube HOLD (01/13/2023 8:55 AM EDT) [facility] Gold Hold Sample in lab. [facility] Blood No Charge / Unknown 01/13/2023 8:55 AM EDT 01/13/2023 9:25 AM EDT Ana Pringle MD CHEMISTRY ORDERABLES Performing Organization Address City/[facility]/ZIP Co de Phone Number [facility] [place] [address] * Bilirubin, Direct (01/13/2023 8:30 AM EDT) [facility] Bilirubin, Direct 0.1 0.0 - 0.3 mg/dL [facility] Blood Venous Draw / Unknown 01/13/2023 8:30 AM EDT 01/13/2023 9:04 AM EDT Narrative Resulting Agency Comment Spec In Lab Ana Pringle MD CHEMISTRY ORDERABLES Performing Organization Address City/[facility]/[place] [address] * Differential, Automated (01/13/2023 8:30 AM EDT) [facility] Neutrophil % 63.9 % [facility] Neutrophil Absolute 5.09 1.70 - 6.10 x10(3)/[facility] Lymph % 29.2 % [facility] Lymphocytes Abs 2.3 0.9 - 3.2 x10(3)/[facility] Monocyte % 3.5 % [facility] Monocyte Abs 0.3 0.3 - 0.9 x10(3)/[facility] Eos % 2.0 % [facility] Eosinophils Abs 0.2 0.0 - 0.4 x10(3)/[facility] Basophil % 0.9 % [facility] Baso Absolute 0.1 0.0 - 0.1 x10(3)/[facility]ORY Immature Gran % 0.50 % [facility] Comment: Immature granulocytes(IG's)percentage and absolute count will include metamyelocytes, myelocytes, and promyelocytes. Blood smears from CBCs yielding IG's will be scanned manually for concordance. If this scan disagrees with the automated IG or if promyelocytes are noted, a manual differential will be performed. Immature Gran Absolute 0.04 0.00 - 0.04 x10(3)/[facility] Blood 01/13/2023 8:30 AM EDT 01/13/2023 9:02 AM EDT Narrative Resulting Agency Comment Spec In Lab Albino Bartholomew MD HEMATOLOGY ORDERABLE S [facility] [place] [address] * (ABNORMAL) Hemogram (01/13/2023 8:30 AM EDT) White Blood Cell 8.0 4.0 - 9.5 x10(3)/mc L [facility] Red Blood Cell 4.54(L) 4.58 - 5.54 x10(6)/mc L [facility] Hemoglobin 14.8 13.7 - 16.5 g/dL [facility] Hematocrit 43.4 40.5 - 48.5 % [facility] Mean Cell Volume 95.6(H) 82.9 - 93.1 fL [facility] Mean Cell Hemoglobin 32.6(H) 27.5 - 32.1 pg [facility] Mean Cell Hemoglobin Concentration 34.1 32.0 - 35.7 g/dL [facility] Platelet 189 145 - 357 x10(3)/mc L [facility] RDW Standard Deviation 54.2(H) 36.0 - 45.0 fL [facility] RDW coefficient of variation 15.4(H) 11.4 - 13.8 % [facility] Mean Platelet Volume 9.1 7.6 - 12.9 fL [facility] NRBC% auto 0.0 % [facility] NRBC Absolute 0.000 0.000 - 0.000 x10(3)/mc L [facility] Blood 01/13/2023 8:30 AM EDT 01/13/2023 9:02 AM EDT Narrative Resulting Agency Comment Spec In Lab Albino Bartholomew MD HEMATOLOGY ORDERABLE S [facility] [address] [facility] [place] [address] * (ABNORMAL) Comprehensive metabolic panel (non-fasting) (01/13/2023 8:30 AM EDT) Glucose 119 65 - 199 mg/dL [facility] Comment:Diabetes: >=200 mg/d L plus symptoms Blood Urea Nitrogen 20 10 - 20 mg/dL [facility] Creatinine 1.40 0.80 - 1.50 mg/dL [facility] Sodium 141 135 - 145 mmol/L [facility] Potassium 3.5 3.5 - 5.0 mmol/L [facility] Comment: Please note: ??Patients with WBC >100,000 may have falsely elevated Potassium levels. ??For accurate Potassium quantification in these patients send serum separator tube (gold top) for subsequent determinations. ??Contact the Clinical Chemistry Laboratory if there are any questions. Chloride 103 98 - 107 mmol/L [facility] Carbon Dioxide 28 22 - 31 mmol/L [facility] Anion Gap 10 5 - 15 mmol/L [facility] Calcium 9.5 8.5 - 10.5 mg/dL [facility] Protein, Total 7.0 6.1 - 8.0 g/dL [facility] Albumin 4.2 3.2 - 5.2 g/dL [facility] Aspartate Aminotransferase 28 0 - 39 unit/L [facility] Alanine Aminotransferase 43 0 - 55 unit/L [facility] Alkaline Phosphatase 103 40 - 130 unit/L [facility] Bilirubin, Total 0.5 0.2 - 1.3 mg/dL [facility] Est Glomerular Filtration Rate 55(L) >=60 mL/min/1. 73 m?? [facility] Comment: This patient's estimated GFR was [...] Bartholomew MD CHEMISTRY ORDERABLES Performing Organization Address City[facility] Co de Phone Number [facility] [place] [address] * (ABNORMAL) TSH (01/13/2023 8:30 AM EDT) Thyroid Stimulating Hormone 6.29(H) 0.27 - 4.20 mcIU/mL [facility] Comment: Reference Interval (mcIU/mL): Females: ??First Trimester: 0.23-3.88 ??Second Trimester: 0.22-3.90 ??Third Trimester: 0.44-4.66 Blood 01/13/2023 8:30 AM EDT 01/13/2023 9:02 AM EDT Narrative Resulting Agency Comment Spec In Lab Albino Bartholomew MD CHEMISTRY ORDERABLES [facility] [place] [address] * T4, free (01/13/2023 8:30 AM EDT) Free T4 1.46 0.93 - 1.70 ng/dL [facility] Comment: Reference Interval (ng/dL): Females: ??First Trimester: 0.97-1.68 ??Second Trimester: 0.77-1.51 ??Third Trimester: 0.77-1.49 Blood 01/13/2023 8:30 AM EDT 01/13/2023 9:02 AM EDT Narrative Resulting Agency Comment Spec In Lab Albino Bartholomew MD CHEMISTRY ORDERABLES Performing Organization Address City/State/[facility] Co de Phone Number [facility] [place] [address] documented in this encounter Visit Diagnoses Diagnosis Metastatic renal cell carcinoma to lung, unspecified laterality High risk medication use Encounter for long-term (current) use of other medications Abnormal thyroid function test Nonspecific abnormal results of thyroid function study documented in this encounter Care Teams Document Management Analyst Relationship Specialty Start Date End Date Juan Dempsey MD [address] [place] [address] PCP - General Emergency Medicine 08/20/21 documented as of this encounter
--- OUTSIDE RECORDS SUMMARY | 2024-03-09 10:15 | XMS_ITS | Encounter Summary ---
Author Organization [facility] Address [facility] [place] [address] Care Team Providers Care Incoming Freight Clerk Name Role Phone Juan Dempsey MD Primary Care Provider [phone] Encounter Details Date Type Department Care Team [...] [facility] Hemat[facility] Oncology [address] [place] [address] 03/29/2024 12:[address] [place] [place] [address] Albino Bartholomew MD [facility] DR [place]AT[place]Y [place] [address] 04/05/2024 10:00 AM EST Office Visit [place]ology [place] [address] Albino Bartholomew MD [facility] DR [place]AT[place] [address] documented as of this encounter Visit Diagnoses Not on filedocumented in this encounter Care Teams Incoming Freight Clerk Relationship Specialty Start Date End Date Juan Dempsey MD [address] [place] [address] PCP - General Emergency Medicine 08/20/21 documented as of this encounter
--- OUTSIDE RECORDS SUMMARY | 2024-03-09 10:15 | XMS_ITS | Encounter Summary ---
Author Organization [facility] [place] [address] Care Team Providers Care Station Installer Name Role Phone Juan Dempsey MD Primary Care Provider [phone] Reason for Referral * Diagnostic Test (Routine) - Closed Specialty Diagnoses / Procedures Referred By Contac t Referred To Contact Radiology Diagnoses Metastatic renal cell carcinoma to lung, unspecified laterality Procedures CT Chest Abdomen Pelvis w Contrast (Generic) Albino Bartholomew MD [facility] DR HEMATOLOGY [place] [address] [facility] [place] [address] Referral ID Status Reason Start Date Expiration Date V isits Requested Visits Authorized [id number] Closed Specialty Service Requested 10/14/2022 04/15/2024 1 1 Reason for Visit * Diagnostic Test (Routine) - Closed Specialty Diagnoses / Procedures Referred By Contac t Referred To Contact Radiology Diagnoses Metastatic renal cell carcinoma to lung, unspecified laterality Procedures CT Chest Abdomen Pelvis w Contrast (Generic) Albino Bartholomew MD [facility] HEMATOLOGY [place] [address] [facility] [place] [address] Referral ID Status Reason Start Date Expiration Date V isits Requested Visits Authorized [id number] Closed Specialty Service Requested 10/14/2022 04/15/2024 1 1 Encounter Details Date Type Department Care Team (Latest Contact Info) Description 11/04/2022 8:35 AM EDT - 11/04/2022 11:59 PM EDT Hospital Encounter CT Scan at [facility] [place] [address] Albino Bartholomew MD [facility] DR HEMATOLOGY [place] [address] Metastatic renal cell carcinoma to [...] 10:30 AM EST Laboratory Appointment Lab at [facility] Hematology Oncology [address] [place] [address] 03/29/2024 12:[address] [place] [address] Albino Bartholomew MD [facility] DR HEMATOLOGY [place] [address] 04/05/2024 10:00 AM EST Office Visit Hematology [place] [address] Albino Bartholomew MD [facility] HEMATOLOGY [place] [address] documented as of this encounter Procedures Procedure [...] who have questions please contact the health pulmonary care nurse that requested your imaging first. ? Narrative [...] patients who have questions please contactthe health pulmonary care nurse that requested your imaging first. Albino Bratholomew MD IMG CT ORDERABLES documented in this [...] mLs documented in this encounter Care Teams Station Installer Relationship Specialty Start Date End Date Juan Dempsey MD [address] [place] [address] PCP - General Emergency Medicine 08/20/21 documented as of this encounter
--- OUTSIDE RECORDS SUMMARY | 2024-03-09 10:15 | XMS_ITS | Encounter Summary ---
Author Organization [facility] Address [facility] [place] [address] Care Team Providers Care Theater Education Teacher Name Role Phone Juan Dempsey MD Primary Care Provider [phone] Encounter Details Date Type Department Care Team (Late st Contact Info) Description 11/06/2022 2:30 PM EDT Office Visit Dermatology at [facility] [address] [place] [address] Oli Winter MD [address] [facility] [place] [address] Purpura; Sebaceous hyperplasia; Multiple benign melanocytic nevi [...] Oli Winter MD FAAD at Dermatology at [facility] Patient's preferred name Cristofer Preferred contact [...] laser therapy. Cosmetic treatment and therefore, likely [id number] expense. Handout given. Answered all questions. Patient [...] unless symptoms develop. Treatment considered cosmetic and [id number]. Treatment options, including but not limited to [...] dermatitis. [x] Recall placed [] Forwarded to puppet master [] Patient scheduled before exiting Scribe attestation: Trena Kohler RN has performed the documentation for this encounter in the presence of and acting as a scribe for Oli Winter MD FAAMichael. I performed the above scribed service and agree with the accuracy of the documentation in this encounter. Reviewed and signed by: MD LEONEL Leal Dermatology [facility] documented in this encounter Plan of Treatment Upcoming Encounters Date Type Department Care Team (Late st Contact Info) Description 03/29/2024 10:30 AM EST Laboratory Appointment Lab at [facility] Hematology Oncology [address] [place] [address] 03/29/2024 12:[address] [place] [address] Albino Bartholomew MD [facility] [address] [place] [address] 04/05/2024 10:00 AM EST Office Visit Hematology [place] [address] Albino Bartholomew MD [facility] [address] [place] [address] documented as of this encounter Visit Diagnoses Diagnosis Purpura Other nonthrombocytopenic purpuras Sebaceous hyperplasia Other specified disease of sebaceous glands Multiple benign melanocytic nevi of both upper extremities, both lower extremities, and trunk Family history of melanoma Family history of other specified malignant neoplasm Lentigines Other dyschromia Rodríguez angioma Nevus, non-neoplastic SK (seborrheic keratosis) Other seborrheic keratosis documented in this encounter Care Teams Theater Education Teacher Relationship Specialty Start Date End Date Juan Dempsey MD [address] [place] [address] PCP - General Emergency Medicine 08/20/21 documented as of this encounter
--- OUTSIDE RECORDS SUMMARY | 2024-03-09 10:15 | XMS_ITS | Encounter Summary ---
Author Organization [facility] Address [facility] [place] [address] Care Team Providers Care Thai Masseur Name Role Phone Juan Dmepsey MD Primary Care Provider [phone] Encounter Details Date Type Department Care Team [...] [facility] [place] [address] [place] [address] 03/29/2024 12:[address] [place] [address] Albino Bartholomew MD [facility] [address] [place] [address] 04/05/2024 10:00 AM EST Office Visit Hematology [place] [address] Albino Bartholomew MD [facility] DR [place] [address] documented as of this encounter Visit Diagnoses Not on filedocumented in this encounter Care Teams Thai Masseur Relationship Specialty Start Date End Date Juan Dempsey MD [address] [place] [address] PCP - General Emergency Medicine 08/20/21 documented as of this encounter
--- OUTSIDE RECORDS SUMMARY | 2024-03-09 10:15 | XMS_ITS | Encounter Summary ---
Author Organization Counts Include [facility] At [facility] Address [facility] [place] [address] Care Team Providers Care Rough Rounder Machine Name Role Phone Juan Dempsey MD Primary Care Provider [phone] Reason for Visit * Reason Comments Specialty Pharmacy Review Cabometyx 20mg tablet Encounter Details Date Type Department Care Team (Late st Contact Info) Description 11/06/2022 Specialty [place] [phone] Kelin Chong, [facility] Social History Tobacco Use Types Packs/Day Years [...] Chong - 11/06/2022 11:59 PM EDT [facility] has completed a benefits investigation for Cristofer Tenorio to review their eligibility to fill at [facility]. Per patient's medication list they are prescribedCabometyx 20mg tablet and the medication is able to be filled at the [facility]. The patient is currently filling the medication through Specialty Pharmacy with a $0 copay. PA approved until 2025 documented in this encounter Plan of Treatment Upcoming Encounters Date Type Department Care Team (Late st Contact Info) Description 03/29/2024 10:30 AM EST Laboratory Appointment Lab at [facility] Hematology Oncology [address] [place] [address] 03/29/2024 12:[address] [place] [address] Albino Bartholomew MD [facility] DR [place] [address] 04/05/2024 10:00 AM EST Office Visit [place]ology [place] [address] Albino Bartholomew MD [facility] DR [place]AT[place] [address] documented as of this encounter Visit Diagnoses Not on filedocumented in this encounter Care Teams Rough Rounder Machine Relationship Specialty Start Date End Date Juan Dempsey MD [address] [place] [address] PCP - General Emergency Medicine 08/20/21 documented as of this encounter
--- OUTSIDE RECORDS SUMMARY | 2024-03-09 10:15 | XMS_ITS | Encounter Summary ---
Author Organization [facility] Address [facility] [place] [address] Care Team Providers Care Popcorn Candy Maker Name Role Phone Juan Dempsey MD Primary Care Provider [phone] Reason for Visit * Reason Comments Specialty Refill Management Encounter Details Date Type Department Care Team (Late st Contact Info) Description 12/10/2022 Specialty [place] [phone] Reshma Gar, [facility] Social History Tobacco Use Types Packs/Day [...] this encounter Progress Notes * Reshma Gar [facility] - 12/10/2022 11:43 AM EDT Clinical Management Plan: Refill Specialty Pharmacy Consultation; Reshma Gar [facility] Comprehensive Medication Management (CMM) Cristofer Stevensnaida Mr. [...] Standard Peanut Medication Reconciliation Discrep[facility]) [facility] Specialty Pharmacy Refill Questionnaire [...] current drug regimen were made. Reshma Gar [facility] 12/10/22 11:44 AM documented in this encounter Plan of Treatment Upcoming Encounters Date Type Department Care Team (Late st Contact Info) Description 03/29/2024 10:30 AM EST Laboratory Appointment Lab at [facility] Hematology Oncology [address] [place] [address] 03/29/2024 12:[address] [place] [address] Albino Bartholomew MD [facility] [address] [place] [address] 04/05/2024 10:00 AM EST Office Visit Hematology [place] [address] Albino Bartholomew MD [facility] [address] [place] [address] documented as of this encounter Visit Diagnoses Not on filedocumented in this encounter Care Teams Popcorn Candy Maker Relationship Specialty Start Date End Date Juan Dempsey MD [address] [place] [address] PCP - General Emergency Medicine 08/20/21 documented as of this encounter
--- OUTSIDE RECORDS SUMMARY | 2024-03-09 10:15 | XMS_ITS | Encounter Summary ---
Author Organization [facility] Address [facility] [place] [address] Care Team Providers Care Editor Greeting Card Name Role Phone Juan Dempsey MD Primary Care Provider [phone] Encounter Details Date Type Department Care Team [...] Laboratory Appointment Lab at [facility] [place]ematology Oncology [address] [place] [address] 03/29/2024 12:[address] [place] [address] Albino Bartholomew MD [facility] [address] [place] [address] 04/05/2024 10:00 AM EST Office Visit Hematology [place] [address] Albino Bartholomew MD [facility] [address] [place] [address] documented as of this encounter Visit Diagnoses Not on filedocumented in this encounter Care Teams Editor Greeting Card Relationship Specialty Start Date End Date Juan Dempsey MD [address] [place] [address] PCP - General Emergency Medicine 08/20/21 documented as of this encounter
--- OUTSIDE RECORDS SUMMARY | 2024-03-09 10:15 | XMS_ITS | Encounter Summary ---
Author Organization [place] [address] Care Team Providers Care Social Studies Department Chair Name Role Phone Juan Dempsey MD Primary Care Provider [phone] Encounter Details Date Type Department Care Team (Latest Contact Info) Description 10/14/2022 12:01 PM EDT - 10/14/2022 11:59 PM EDT Hospital Encounter [place]ology [place] [address] Metastatic renal cell carcinoma to lung, unspecified [...] 10:30 AM EST Laboratory Appointment Lab at [facility] Hematology Oncology [address] [place] [address] 03/29/2024 12:[address] [place] [address] Albino Bartholomew MD [facility] DR [place] [address] 04/05/2024 10:00 AM EST Office Visit [place]ology [place] [address] Albino Bartholomew MD [facility] DR [place] [address] Scheduled Orders Name Type Priority Associated Diagnoses [...] * Bilirubin, Direct (10/14/2022 12:23 PM EDT) Bilirubin, Direct 0.1 0.0 - 0.3 mg/dL [facility] Blood 10/14/2022 12:2 3 PM EDT 10/14/2022 12:43 PM EDT Narrative Resulting Agency Comment Spec In Lab Ana Pringle MD CHEMISTRY ORDERABLES [facility] [address] * (ABNORMAL) Differential, Automated (10/14/2022 12:23 PM EDT) Neutrophil % 80.4 % [facility] Neutrophil Absolute 7.90(H) 1.70 - 6.10 x10(3)/mc L [facility] Lymph % 15.1 % [facility] Lymphocytes Abs 1.5 0.9 - 3.2 x10(3)/mc L [facility] Monocyte % 2.7 % [facility] Monocyte Abs 0.3 0.3 - 0.9 x10(3)/mc L [facility] Eos % 0.7 % [facility] Eosinophils Abs 0.1 0.0 - 0.4 x10(3)/mc L [facility] Basophil % 0.7 % [facility] Baso Absolute 0.1 0.0 - 0.1 x10(3)/mc L [facility] Immature Gran % 0.40 % [facility] Comment: Immature granulocytes(IG's)percentage and absolute count will include metamyelocytes, myelocytes, and promyelocytes. Blood smears from CBCs yielding IG's will be scanned manually for concordance. If this scan disagrees with the automated IG or if promyelocytes are noted, a manual differential will be performed. Immature Gran Absolute 0.04 0.00 - 0.04 x10(3)/mc L [facility] Blood 10/14/2022 12:2 3 PM EDT 10/14/2022 12:42 PM EDT Narrative Resulting Agency Comment Spec In Lab Albino Bartholomew MD HEMATOLOGY ORDERABLE S [facility] [address] * (ABNORMAL) Hemogram (10/14/2022 12:23 PM EDT) White Blood Cell 9.8(H) 4.0 - 9.5 x10(3)/mc L [facility] Red Blood Cell 4.38(L) 4.58 - 5.54 x10(6)/mc L [facility] Hemoglobin 14.4 13.7 - 16.5 g/dL [facility] Hematocrit 43.6 40.5 - 48.5 % [facility] Mean Cell Volume 99.5(H) 82.9 - 93.1 fL [facility] Mean Cell Hemoglobin 32.9(H) 27.5 - 32.1 pg [facility] Mean Cell Hemoglobin Concentration 33.0 32.0 - 35.7 g/dL [facility] Platelet 168 145 - 357 x10(3)/mc L [facility] RDW Standard Deviation 50.4(H) 36.0 - 45.0 fL [facility] RDW coefficient of variation 13.5 11.4 - 13.8 % [facility] Mean Platelet Volume 9.9 7.6 - 12.9 fL [facility] NRBC% auto 0.0 % [facility] NRBC Absolute 0.000 0.000 - 0.000 x10(3)/mc L [facility] Blood 10/14/2022 12:2 3 PM EDT 10/14/2022 12:42 PM EDT Narrative Resulting Agency Comment Spec In Lab Albino Bartholomew MD HEMATOLOGY ORDERABLE S [facility] [place] [address] * (ABNORMAL) Comprehensive metabolic panel (non-fasting) (10/14/2022 12:23 PM EDT) Glucose 125 65 - 199 mg/dL [facility] Comment:Diabetes: >=200 mg/d L plus symptoms Blood Urea Nitrogen 16 10 - 20 mg/dL [facility] Creatinine 1.23 0.80 - 1.50 mg/dL [facility] Sodium 138 135 - 145 mmol/L [facility] Potassium 3.9 3.5 - 5.0 mmol/L [facility] Comment: Please note: ??Patients with WBC >100,000 may have falsely elevated Potassium levels. ??For accurate Potassium quantification in these patients send serum separator tube (gold top) for subsequent determinations. ??Contact the Clinical Chemistry Laboratory if there are any questions. Chloride 105 98 - 107 mmol/L [facility] Carbon Dioxide 26 22 - 31 mmol/L [facility] Anion Gap 7 5 - 15 mmol/L [facility] Calcium 9.1 8.5 - 10.5 mg/dL [facility] Protein, Total 6.4 6.1 - 8.0 g/dL [facility] Albumin 4.0 3.2 - 5.2 g/dL [facility] Aspartate Aminotransferase 41(H) 0 - 39 unit/L [facility] Alanine Aminotransferase 87(H) 0 - 55 unit/L [facility] Alkaline Phosphatase 103 40 - 130 unit/L [facility] Bilirubin, Total 0.3 0.2 - 1.3 mg/dL [facility] Est Glomerular Filtration Rate 64 >=60 mL/min/1. 73 m?? [facility] Comment: This patient's estimated GFR was [...] Bartholomew MD CHEMISTRY ORDERABLES Performing Organization Address [facility] Co de Phone Number [facility] [address] * TSH (10/14/2022 12:23 PM EDT) Thyroid Stimulating Hormone 3.13 0.27 - 4.20 mcIU/mL [facility] Comment: Reference Interval (mcIU/mL): Females: ??First Trimester: 0.23-3.88 ??Second Trimester: 0.22-3.90 ??Third Trimester: 0.44-4.66 Blood 10/14/2022 12:2 3 PM EDT 10/14/2022 12:43 PM EDT Narrative Resulting Agency Comment Spec In Lab Albino Bartholomew MD CHEMISTRY ORDERABLES Performing Organization Address [facility] Co de Phone Number [facility] [address] * T4, free (10/14/2022 12:23 PM EDT) Free T4 1.42 0.93 - 1.70 ng/dL [facility] Comment: Reference Interval (ng/dL): Females: ??First Trimester: 0.97-1.68 ??Second Trimester: 0.77-1.51 ??Third Trimester: 0.77-1.49 Blood 10/14/2022 12:2 3 PM EDT 10/14/2022 12:43 PM EDT Narrative Resulting Agency Comment Spec In Lab Albino Bartholomew MD CHEMISTRY ORDERABLES [facility] [address] documented in this encounter Visit Diagnoses Diagnosis Metastatic renal cell carcinoma to lung, unspecified laterality High risk medication use Encounter for long-term (current) use of other medications Abnormal thyroid function test Nonspecific abnormal results of thyroid function study Autoimmune hepatitis documented in this encounter Care Teams Social Studies Department Chair Relationship Specialty Start Date End Date Juan Dempsey MD [address] [place] [address] PCP - General Emergency Medicine 08/20/21 documented as of this encounter
--- OUTSIDE RECORDS SUMMARY | 2024-03-09 10:15 | XMS_ITS | Encounter Summary ---
Author Organization [facility] Address [facility] [place] [address] Care Team Providers Care Tile Roofer Name Role Phone Juan Dempsey MD Primary Care Provider [phone] Encounter Details Date Type Department Care Team (Late st Contact Info) Description 10/12/2022 Specialty [place] [phone] Larry Mckeon, TRANSPORT TANK TECHNICIAN Social History Tobacco Use Types Packs/Day Years [...] Standard Peanut Medication Reconciliation Discrepancies (compared to [facility] med list) No Specialty Pharmacy Refill Questionnaire [...] EST Laboratory Appointment Lab at [facility] Hematology Oncology [address] [place] [address] 03/29/2024 12:[address] [place] [address] Albino Bartholomew MD [facility] [place] [address] 04/05/2024 10:00 AM EST Office Visit Hematology [place] [address] Albino Bartholomew MD [facility] [place] [address] documented as of this encounter Visit Diagnoses Not on filedocumented in this encounter Care Teams Tile Roofer Relationship Specialty Start Date End Date Juan Dempsey MD [address] [place] [address] PCP - General Emergency Medicine 08/20/21 documented as of this encounter
--- OUTSIDE RECORDS SUMMARY | 2024-03-09 10:15 | XMS_ITS | Encounter Summary ---
Author Organization [facility] Address [facility] [place] [address] Care Team Providers Care Industrial Diamond Polisher Name Role Phone Juan Dempsey MD Primary Care Provider [phone] Reason for Visit * Reason Onset Date Comments Medication Refill 11/23/2022 Encounter Details Date Type Department Care Team (Late st Contact Info) Description 11/23/2022 [place] [address] Ana Pringle MD [facility] [place] [address] Autoimmune hepatitis Social History Tobacco Use Types [...] 10:30 AM EST Laboratory Appointment Lab at [facility] H[place]ology Oncology [address] [place] [address] 03/29/2024 12:[address] [place] [place] [address] Albino Bartholomew MD [facility] DR [place] [address] 04/05/2024 10:00 AM EST Office Visit [place]ology [place] [address] Albino Bartholomew MD [facility] DR [place] [address] documented as of this encounter Visit Diagnoses Diagnosis Autoimmune hepatitis documented in this encounter Care Teams Industrial Diamond Polisher Relationship Specialty Start Date End Date Juan Dempsey MD [address] [place] [address] PCP - General Emergency Medicine 08/20/21 documented as of this encounter
--- OUTSIDE RECORDS SUMMARY | 2024-03-09 10:16 | XMS_ITS | Encounter Summary ---
Author Organization [facility] Address [facility] [place] [address] Care Team Providers Care Dental Office Coordinator Name Role Phone Juan Dempsey MD Primary Care Provider [phone] Reason for Visit * Reason Comments Specialty Pharmacy Review Cabometyx 40mg tablet Encounter Details Date Type Department Care Team (Late st Contact Info) Description 06/26/2022 Specialty [place] [phone] Kelin Chong, [facility] Social History Tobacco Use Types [...] Chong - 06/26/2022 11:59 PM EST The [facility] has completed a benefits investigation for Cristofer Tenorio to review their eligibility to fill at [facility]. Per patient's medication list they are prescribedCabometyx 40mg tablet and the medication is able to be filled at the [facility]. The patient is currently filling the medication through Specialty Pharmacy with a $0 copay. PA approved until 2025 documented in this encounter Plan of Treatment Upcoming Encounters Date Type Department Care Team (Late st Contact Info) Description 03/29/2024 10:30 AM EST Laboratory Appointment Lab at [facility] Hematology Oncology [address] [place] [address] 03/29/2024 12:[address] [place] [address] Albino Bartholomew MD [facility] [address] [place] [address] 04/05/2024 10:00 AM EST Office Visit Hematology [place] [address] Albino Bartholomew MD [facility] [address] [place] [address] documented as of this encounter Visit Diagnoses Not on filedocumented in this encounter Care Teams Dental Office Coordinator Relationship Specialty Start Date End Date Juan Dempsey MD [address] [place] [address] PCP - General Emergency Medicine 08/20/21 documented as of this encounter
--- OUTSIDE RECORDS SUMMARY | 2024-03-09 10:16 | XMS_ITS | Encounter Summary ---
Author Organization [facility] Address [facility] [place] [address] Care Team Providers Care Manager Academic Name Role Phone Juan Dempsey MD Primary Care Provider [phone] Encounter Details Date Type Department Care Team [...] [facility] Hematology Oncology [address] [place] [address] 03/29/2024 12:[address] [place] [place] [address] Albino Bartholomew MD [facility] [place] [address] 04/05/2024 10:00 AM EST Office Visit [place]ology [place] [address] Albino Bartholomew MD [facility] [place] [address] documented as of this encounter Visit Diagnoses Not on filedocumented in this encounter Care Teams Manager Academic Relationship Specialty Start Date End Date Juan Dempsey MD [address] [place] [address] PCP - General Emergency Medicine 08/20/21 documented as of this encounter
--- OUTSIDE RECORDS SUMMARY | 2024-03-09 10:16 | XMS_ITS | Encounter Summary ---
Author Organization [facility] Address [facility] [place] [address] Care Team Providers Care Electrical Instrument Technician Name Role Phone Juan Dempsey MD Primary Care Provider [phone] Reason for Visit * Reason Comments Specialty Refill Management Encounter Details Date Type Department Care Team (Late st Contact Info) Description 08/25/2022 Specialty [place] [phone] Reshma Gar, [facility] Social History Tobacco Use Types [...] Progress Notes * Reshma Gar [facility] - 08/25/2022 12:14 PM EDT Clinical Management Plan: Refill Specialty Pharmacy Consultation; Reshma Gar [facility] Comprehensive Medication Management (CMM) Cristofer Oh [...] beneficiary Provider: plan sponsor pharmacist [facility] Time Spent: 1-15 min Method of Contact: by telephone Cognitive Ability: good Cognitive Impairment Status Verified this Year: no Allergies and Drug intolerance: Allergies Allergen Reactions ??? Grass Pollen-Orchardgrass, Standard ??? Peanut Medication Reconciliation Discrepancies ([facility]) -n/a Specialty Pharmacy Refill [...] were made at the appointment and that [facility] is providing recommendations (summary located at top of note) for provider review and follow up. Reshma Gar [facility] 08/25/22 12:17 PM documented in this encounter Plan of Treatment Upcoming Encounters Date Type Department Care Team (Late st Contact Info) Description 03/29/2024 10:30 AM EST Laboratory Appointment Lab at [facility] Hematology Oncology [address] [place] [address] 03/29/2024 12:[address] [place] [place] [address] Albino Bartholomew MD [facility] DR HEMATOLOGY [place] [address] 04/05/2024 10:00 AM EST Office Visit [place]ematology [place] [address] Albino Bartholomew MD [facility] DR HEMATOLOGY [place] [address] documented as of this encounter Visit Diagnoses Not on filedocumented in this encounter Care Teams Electrical Instrument Technician Relationship Specialty Start Date End Date Juan Dempsey MD [address] [place] [address] PCP - General Emergency Medicine 08/20/21 documented as of this encounter
--- OUTSIDE RECORDS SUMMARY | 2024-03-09 10:16 | XMS_ITS | Encounter Summary ---
Author Organization Pending Sale To [facility] Address [facility] [address] Care Team Providers Care Filterer Name Role Phone Juan Dempsey MD Primary Care Provider [phone] Reason for Visit * Reason Comments Follow-up Encounter Details Date Type Department Care Team (Late st Contact Info) Description 08/12/2022 2:00 PM EDT Office Visit H[place] [address] Albino Bartholomew MD [facility] [address] [place] [address] Kyle Donohue PA [facility] [address] [place] [address] Metastatic renal cell carcinoma to lung, unspecified [...] the abdomen and pelvis. 10/20/21 CXR ([facility]): 10/16/21: IMPRESSION 1. Unexpected finding: New 6 [...] Pt prefers to get labs at [facility]. We'll send orders and I'll ask our it systems administrator to f/u on results. Advised pt to [...] or concerns and he agreed. Plan: - [id number] mcg a day - Continue Cabometyx 40 mg -Next visit in 4-5 weeks with CBC, CMP, TSH, free T4 The plan was discussed with patient in details. All questions were answered to patient's satisfaction. documented in this encounter Plan of Treatment Upcoming Encounters Date Type Department Care Team (Late st Contact Info) Description 03/29/2024 10:30 AM EST Laboratory Appointment Lab at [facility] [place] Hematology Oncology [address] [place] [address] 03/29/2024 12:[address] [place] [place] [phone] Albino Bartholomew MD [facility] [address] [place] [address] 04/05/2024 10:00 AM EST Office Visit [place]ology [place] [phone] Albino Bartholomew MD [facility] [address] [place] [address] documented as of this encounter Visit Diagnoses Diagnosis Metastatic renal cell carcinoma to lung, unspecified laterality High risk medication use Encounter for long-term (current) use of other medications Abnormal thyroid function test Nonspecific abnormal results of thyroid function study Right kidney mass Unspecified disorder of kidney and ureter Elevated LFTs Other abnormal blood chemistry documented in this encounter Care Teams Filterer Relationship Specialty Start Date End Date Juan Dempsey MD [address] [place] [address] PCP - General Emergency Medicine 08/20/21 documented as of this encounter
--- OUTSIDE RECORDS SUMMARY | 2024-03-09 10:16 | XMS_ITS | Encounter Summary ---
Author Organization Formerly [facility] [place] [address] Care Team Providers Care Plastics Fabricator And Assembler Name Role Phone Juan Dempsey MD Primary Care Provider [phone] Reason for Referral * Diagnostic Test (Routine) - Closed Specialty Diagnoses / Procedures Referred By Contac t Referred To Contact Radiology Diagnoses Right kidney mass Renal cell carcinoma of left kidney Procedures MRI Abdomen wwo Contrast (Generic) Albino Bartholomew MD [facility] [address] H[place]ATOLOGY [place] [address] [place] [address] Referral ID Status Reason Start Date Expiration Date V isits Requested Visits Authorized [id number] Closed Specialty Service Requested 07/22/2022 01/23/2024 1 1 Reason for Visit * Diagnostic Test (Routine) - Closed Specialty Diagnoses / Procedures Referred By Contac t Referred To Contact Radiology Diagnoses Right kidney mass Renal cell carcinoma of left kidney Procedures MRI Abdomen wwo Contrast (Generic) Albino Bartholomew MD [facility] [place] [address] [facility] [place] [address] Referral ID Status Reason Start Date Expiration Date V isits Requested Visits Authorized [id number] Closed Specialty Service Requested 07/22/2022 01/23/2024 1 1 Encounter Details Date Type Department Care Team (Latest Contact Info) Description 08/12/2022 6:48 AM EDT - 08/12/2022 8:26 AM EDT Hospital Encounter MRI at [facility] [place] [address] Albino Bartholomew MD [facility] [address] [place]EMATOLOGY [place] [address] Right kidney mass; Renal cell [...] [facility] [place] Hematology Oncology [address] [place] [address] 03/29/2024 12:[address] [place] [address] Albino Bartholomew MD [facility] [place]ATOLOGY [place] [address] 04/05/2024 10:00 AM EST Office Visit Hematology and Oncology at [facility] [place] [address] Albino Bartholomew MD [facility] [address] [place]ATOLOG[place] [address] documented as of this encounter Procedures Procedure [...] interpretation and agree with the findings, Jd Muller DO at 08/12/2022 9:58 AM Thank you for letting us participate in the care of this patient. ??If you are a health care provider and have any questions regarding this report, please contact the number below. ??For patients who have questions please contact the health palliative care specialist that requested your imaging first. [...] 02/06/2022, CT chest abdomen pelvis 06/26/2022 FINDINGS: Dry House Worker Images: Noncontributory. Right Kidney: Lesion of concern [...] hernia. Marrow Signal: Normal. Procedure Note Jd Muller, DO - 08/12/2022 EXAMINATION: MRI ABDOMEN WWO CONTRAST (GENERIC) CLINICAL HISTORY: Kidney cancer suspected, suspicious mass; Kidneycancer, follow up Exophytic mass arising from right kidney, please evaluate, patient with metastatic renal cell carcinoma. TECHNIQUE: MRI of the abdomen prior to and following the intravenous administration of 19ml Dotarem. COMPARISON: MR abdomen 02/06/2022, CT chest abdomen pelvis 06/26/2022 FINDINGS: Dry House Worker Images: Noncontributory. Right Kidney: Lesion of concern [...] patients who have questions please contactthe health palliative care specialist that requested your imaging first. Albino Bartholomew MD [facility] MRI ORDERABLES documented in this encounter Visit [...] mLs documented in this encounter Care Teams Plastics Fabricator And Assembler Relationship Specialty Start Date End Date Juan Dempsey MD [address] [place] [address] PCP - General Emergency Medicine 08/20/21 documented as of this encounter
--- OUTSIDE RECORDS SUMMARY | 2024-03-09 10:16 | XMS_ITS | Encounter Summary ---
Author Organization Formerly [facility] Address [facility] [place] [address] Care Team Providers Care Rehabilitation Construction Specialist Name Role Phone Juan Dempsey MD Primary Care Provider [phone] Encounter Details Date Type Department Care Team (Late st Contact Info) Description 08/23/2022 Orders [place] [address] Ana Pringle MD [facility] [place] [address] Drug-induced liver injury Social History Tobacco Use [...] [facility] Hematology Oncology [address] [place] [address] 03/29/2024 12:[address] [place] [address] Albino Bartholomew MD [facility] DR [place] [address] 04/05/2024 10:00 AM EST Office Visit Hematology [place] [address] Albino Bartholomew MD [facility] [address] [place] [address] documented as of this encounter Visit Diagnoses Diagnosis Drug-induced liver injury documented in this encounter Care Teams Rehabilitation Construction Specialist Relationship Specialty Start Date End Date Juan Dempsey MD [address] [place] [address] PCP - General Emergency Medicine 08/20/21 documented as of this encounter
--- OUTSIDE RECORDS SUMMARY | 2024-03-09 10:16 | XMS_ITS | Encounter Summary ---
Author Organization [facility] Address [facility] [place] [address] Care Team Providers Care Interior Block Wirer Name Role Phone Juan Dempsey MD Primary Care Provider [phone] Encounter Details Date Type Department Care Team (Late st Contact Info) Description 09/01/2022 Telephone Hematology [place] [address] Mary Salas RN Social History [...] will stop the Cabometyx as of today. 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 documented in this encounter Plan of Treatment Upcoming Encounters Date Type Department Care Team (Late st Contact Info) Description 03/29/2024 10:30 AM EST Laboratory Appointment [place] [facility] [place] [address] [place] [address] 03/29/2024 12:[address] [place] [address] Albino Bartholomew MD [facility] [place] [address] 04/05/2024 10:00 AM EST Office Visit Hematology [place] [address] Albino Bartholomew MD [facility] [place] [address] documented as of this encounter Visit Diagnoses Not on filedocumented in this encounter Care Teams Interior Block Wirer Relationship Specialty Start Date End Date Juan Dempsey MD [address] [place] [address] PCP - General Emergency Medicine 08/20/21 documented as of this encounter
--- OUTSIDE RECORDS SUMMARY | 2024-03-09 10:16 | XMS_ITS | Encounter Summary ---
Author Organization [facility] Address [place] [address] Care Team Providers Care Oleo Hasher And Renderer Name Role Phone Juan Dempsey MD Primary Care Provider [phone] Reason for Visit * Reason Comments Follow-up Encounter Details Date Type Department Care Team (Late st Contact Info) Description 06/26/2022 3:00 PM EST Office Visit Hematology [place] [address] Albino Costello MD [facility] [address] [place] [address] Kyle Donohue PA [facility] [address] [place] [address] Metastatic renal cell carcinoma to lung, unspecified [...] one step daughter as well 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 10/20/21 CXR ([facility]): 10/16/21: IMPRESSION 1. Unexpected finding: New [...] We'll send orders and I'll ask our developmental behavioral physician to f/u on results. Advised pt to [...] 10:30 AM EST Laboratory Appointment Lab at [facility] Hematology Oncology [address] [place] [address] 03/29/2024 12:[address] [place] [address] Albino Costello MD [facility] [address] [place] [address] 04/05/2024 10:00 AM EST Office Visit Hematology [place] [address] Albino Costello MD [facility] [address] [place] [address] documented as of this encounter Results * T4, free (06/02/2023 12:12 PM EST) Free T4 1.64 0.93 - 1.70 ng/dL [facility] Comment: Reference Interval (ng/dL): Females: ??First Trimester: 0.97-1.68 ??Second Trimester: 0.77-1.51 ??Third Trimester: 0.77-1.49 Blood 06/02/2023 12:1 2 PM EST 06/02/2023 12:23 PM EST Narrative Resulting Agency Comment Spec In Lab Albino Costello MD CHEMISTRY ORDERABLES Performing Organization Address [facility] Co de Phone Number [facility] [place] [address] * TSH (06/02/2023 12:12 PM EST) Thyroid Stimulating Hormone 2.83 0.27 - 4.20 mcIU/mL [facility] Comment: Reference Interval (mcIU/mL): Females: ??First Trimester: 0.23-3.88 ??Second Trimester: 0.22-3.90 ??Third Trimester: 0.44-4.66 Blood 06/02/2023 12:1 2 PM EST 06/02/2023 12:23 PM EST Narrative Resulting Agency Comment Spec In Lab Albino Costello MD CHEMISTRY ORDERABLES Performing Organization Address [facility] Co de Phone Number [facility] [place] [address] * (ABNORMAL) Comprehensive metabolic panel (non-fasting) (06/02/2023 12:12 PM EST) Glucose 112 65 - 199 mg/dL [facility] Comment:Diabetes: >=200 mg/d L plus symptoms Blood Urea Nitrogen 20 10 - 20 mg/dL [facility] Creatinine 1.53(H) 0.80 - 1.50 mg/dL [facility] Sodium 142 135 - 145 mmol/L [facility] Potassium 4.2 3.5 - 5.0 mmol/L [facility] Comment: Please note: ??Patients with WBC >100,000 may have falsely elevated Potassium levels. ??For accurate Potassium quantification in these patients send serum separator tube (gold top) for subsequent determinations. ??Contact the Clinical Chemistry Laboratory if there are any questions. Chloride 106 98 - 107 mmol/L [facility] Carbon Dioxide 27 22 - 31 mmol/L [facility] Anion Gap 9 5 - 15 mmol/L [facility] Calcium 9.2 8.5 - 10.5 mg/dL [facility] Protein, Total 6.5 6.1 - 8.0 g/dL [facility] Albumin 4.0 3.2 - 5.2 g/dL [facility] Aspartate Aminotransferase 26 0 - 39 unit/L [facility] Alanine Aminotransferase 28 0 - 55 unit/L [facility] Alkaline Phosphatase 124 40 - 130 unit/L [facility] Bilirubin, Total 0.3 0.2 - 1.3 mg/dL [facility] Est Glomerular Filtration Rate 49(L) >=60 mL/min/1. 73 m?? [facility] Comment: This patient's estimated [...] Costello MD CHEMISTRY ORDERABLES Performing Organization Address City/State/[facility] Co de Phone Number [facility] [place] [address] * T4, free (04/28/2023 1:47 PM EST) Free T4 1.57 0.93 - 1.70 ng/dL [facility] Comment: Reference Interval (ng/dL): Females: ??First Trimester: 0.97-1.68 ??Second Trimester: 0.77-1.51 ??Third Trimester: 0.77-1.49 Blood 04/28/2023 1:47 PM EST 04/28/2023 1:53 PM EST Narrative Resulting Agency Comment Spec In Lab Albino Costello MD CHEMISTRY ORDERABLES Performing Organization Address City/[facility] Co de Phone Number [facility] [place] [address] * TSH (04/28/2023 1:47 PM EST) Thyroid Stimulating Hormone 2.59 0.27 - 4.20 mcIU/mL [facility] Comment: Reference Interval (mcIU/mL): Females: ??First Trimester: 0.23-3.88 ??Second Trimester: 0.22-3.90 ??Third Trimester: 0.44-4.66 Blood 04/28/2023 1:47 PM EST 04/28/2023 1:53 PM EST Narrative Resulting Agency Comment Spec In Lab Albino Costello MD CHEMISTRY ORDERABLES Performing Organization Address [facility] Co de Phone Number [facility] [place] [address] * (ABNORMAL) Comprehensive metabolic panel (non-fasting) (04/28/2023 1:47 PM EST) Glucose 92 65 - 199 mg/dL [facility] Comment:Diabetes: >=200 mg/d L plus symptoms Blood Urea Nitrogen 23(H) 10 - 20 mg/dL [facility] Creatinine 1.81(H) 0.80 - 1.50 mg/dL [facility] Sodium 142 135 - 145 mmol/L [facility] Potassium 4.2 3.5 - 5.0 mmol/L [facility] Comment: Please note: ??Patients with WBC >100,000 may have falsely elevated Potassium levels. ??For accurate Potassium quantification in these patients send serum separator tube (gold top) for subsequent determinations. ??Contact the Clinical Chemistry Laboratory if there are any questions. Chloride 105 98 - 107 mmol/L [facility] Carbon Dioxide 27 22 - 31 mmol/L [facility] Anion Gap 10 5 - 15 mmol/L [facility] Calcium 9.1 8.5 - 10.5 mg/dL [facility] Protein, Total 6.5 6.1 - 8.0 g/dL [facility] Albumin 4.1 3.2 - 5.2 g/dL [facility] Aspartate Aminotransferase 40(H) 0 - 39 unit/L [facility] Alanine Aminotransferase 61(H) 0 - 55 unit/L [facility] Alkaline Phosphatase 127 40 - 130 unit/L [facility] Bilirubin, Total 0.3 0.2 - 1.3 mg/dL [facility] Est Glomerular Filtration Rate 40(L) >=60 mL/min/1. 73 m?? [facility] Comment: This patient's estimated [...] Costello MD CHEMISTRY ORDERABLES Performing Organization Address [facility] Co de Phone Number [facility] [place] [address] * T4, free (03/16/2023 1:33 PM EST) Free T4 1.21 0.93 - 1.70 ng/dL [facility] Comment: Reference Interval (ng/dL): Females: ??First Trimester: 0.97-1.68 ??Second Trimester: 0.77-1.51 ??Third Trimester: 0.77-1.49 Blood 03/16/2023 1:33 PM EST 03/16/2023 1:47 PM EST Narrative Resulting Agency Comment Spec In Lab Albino Costello MD CHEMISTRY ORDERABLES Performing Organization Address City/[facility] Co de Phone Number [facility] [place] [address] * (ABNORMAL) TSH (03/16/2023 1:33 PM EST) Thyroid Stimulating Hormone 5.27(H) 0.27 - 4.20 mcIU/mL [facility] Comment: Reference Interval (mcIU/mL): Females: ??First Trimester: 0.23-3.88 ??Second Trimester: 0.22-3.90 ??Third Trimester: 0.44-4.66 Blood 03/16/2023 1:33 PM EST 03/16/2023 1:47 PM EST Narrative Resulting Agency Comment Spec In Lab Albino Costello MD CHEMISTRY ORDERABLES [facility] [place] [address] * (ABNORMAL) Comprehensive metabolic panel (non-fasting) (03/16/2023 1:33 PM EST) Glucose 124 65 - 199 mg/dL [facility] Comment:Diabetes: >=200 mg/d L plus symptoms Blood Urea Nitrogen 15 10 - 20 mg/dL [facility] Creatinine 1.49 0.80 - 1.50 mg/dL [facility] Sodium 141 135 - 145 mmol/L [facility] Potassium 3.6 3.5 - 5.0 mmol/L [facility] Comment: Please note: ??Patients with WBC >100,000 may have falsely elevated Potassium levels. ??For accurate Potassium quantification in these patients send serum separator tube (gold top) for subsequent determinations. ??Contact the Clinical Chemistry Laboratory if there are any questions. Chloride 103 98 - 107 mmol/L [facility] Carbon Dioxide 27 22 - 31 mmol/L [facility] Anion Gap 11 5 - 15 mmol/L [facility] Calcium 8.9 8.5 - 10.5 mg/dL [facility] Protein, Total 6.1 6.1 - 8.0 g/dL [facility] Albumin 4.1 3.2 - 5.2 g/dL [facility] Aspartate Aminotransferase 46(H) 0 - 39 unit/L [facility] Alanine Aminotransferase 74(H) 0 - 55 unit/L [facility] Alkaline Phosphatase 123 40 - 130 unit/L [facility] Bilirubin, Total 0.3 0.2 - 1.3 mg/dL [facility] Est Glomerular Filtration Rate 51(L) >=60 mL/min/1. 73 m?? [facility] Comment: This patient's estimated [...] Costello MD CHEMISTRY ORDERABLES Performing Organization Address City/[facility]/ZIP Co de Phone Number [facility] [place] [address] * T4, free (02/10/2023 9:11 AM EDT) Free T4 1.43 0.93 - 1.70 ng/dL [facility] Comment: Reference Interval (ng/dL): Females: ??First Trimester: 0.97-1.68 ??Second Trimester: 0.77-1.51 ??Third Trimester: 0.77-1.49 Blood 02/10/2023 9:11 AM EDT 02/10/2023 9:18 AM EDT Albino Costello MD CHEMISTRY ORDERABLES [facility] [place] [address] * (ABNORMAL) TSH (02/10/2023 9:11 AM EDT) Thyroid Stimulating Hormone 6.10(H) 0.27 - 4.20 mcIU/mL [facility] Comment: Reference Interval (mcIU/mL): Females: ??First Trimester: 0.23-3.88 ??Second Trimester: 0.22-3.90 ??Third Trimester: 0.44-4.66 Blood 02/10/2023 9:11 AM EDT 02/10/2023 9:18 AM EDT Albino Costello MD CHEMISTRY ORDERABLES [facility] [address] [address] * (ABNORMAL) Comprehensive metabolic panel (non-fasting) (02/10/2023 9:11 AM EDT) Glucose 93 65 - 199 mg/dL [facility] Comment:Diabetes: >=200 mg/d L plus symptoms Blood Urea Nitrogen 24(H) 10 - 20 mg/dL [facility] Creatinine 1.44 0.80 - 1.50 mg/dL [facility] Sodium 142 135 - 145 mmol/L [facility] Potassium 3.6 3.5 - 5.0 mmol/L [facility] Comment: Please note: ??Patients with WBC >100,000 may have falsely elevated Potassium levels. ??For accurate Potassium quantification in these patients send serum separator tube (gold top) for subsequent determinations. ??Contact the Clinical Chemistry Laboratory if there are any questions. Chloride 105 98 - 107 mmol/L [facility] Carbon Dioxide 29 22 - 31 mmol/L [facility] Anion Gap 8 5 - 15 mmol/L [facility] Calcium 9.2 8.5 - 10.5 mg/dL [facility] Protein, Total 6.2 6.1 - 8.0 g/dL [facility] Albumin 4.0 3.2 - 5.2 g/dL [facility] Aspartate Aminotransferase 30 0 - 39 unit/L [facility] Alanine Aminotransferase 38 0 - 55 unit/L [facility] Alkaline Phosphatase 106 40 - 130 unit/L [facility] Bilirubin, Total 0.4 0.2 - 1.3 mg/dL [facility] Est Glomerular Filtration Rate 53(L) >=60 mL/min/1. 73 m?? [facility] Comment: This patient's estimated [...] Costello MD CHEMISTRY ORDERABLES Performing Organization Address [facility] Co de Phone Number [facility] [place] [address] * T4, free (01/13/2023 8:30 AM EDT) Free T4 1.46 0.93 - 1.70 ng/dL [facility] Comment: Reference Interval (ng/dL): Females: ??First Trimester: 0.97-1.68 ??Second Trimester: 0.77-1.51 ??Third Trimester: 0.77-1.49 Blood 01/13/2023 8:30 AM EDT 01/13/2023 9:02 AM EDT Narrative Resulting Agency Comment Spec In Lab Albino Costello MD CHEMISTRY ORDERABLES Performing Organization Address [facility] Co de Phone Number [facility] [place] [address] * (ABNORMAL) TSH (01/13/2023 8:30 AM EDT) Thyroid Stimulating Hormone 6.29(H) 0.27 - 4.20 mcIU/mL [facility] Comment: Reference Interval (mcIU/mL): Females: ??First Trimester: 0.23-3.88 ??Second Trimester: 0.22-3.90 ??Third Trimester: 0.44-4.66 Blood 01/13/2023 8:30 AM EDT 01/13/2023 9:02 AM EDT Narrative Resulting Agency Comment Spec In Lab Albino Costello MD CHEMISTRY ORDERABLES [facility] [place] [address] * (ABNORMAL) Comprehensive metabolic panel (non-fasting) (01/13/2023 8:30 AM EDT) Glucose 119 65 - 199 mg/dL [facility] Comment:Diabetes: >=200 mg/d L plus symptoms Blood Urea Nitrogen 20 10 - 20 mg/dL [facility] Creatinine 1.40 0.80 - 1.50 mg/dL [facility] Sodium 141 135 - 145 mmol/L [facility] Potassium 3.5 3.5 - 5.0 mmol/L [facility] Comment: Please note: ??Patients with WBC >100,000 may have falsely elevated Potassium levels. ??For accurate Potassium quantification in these patients send serum separator tube (gold top) for subsequent determinations. ??Contact the Clinical Chemistry Laboratory if there are any questions. Chloride 103 98 - 107 mmol/L [facility] Carbon Dioxide 28 22 - 31 mmol/L [facility] Anion Gap 10 5 - 15 mmol/L [facility] Calcium 9.5 8.5 - 10.5 mg/dL [facility] Protein, Total 7.0 6.1 - 8.0 g/dL [facility] Albumin 4.2 3.2 - 5.2 g/dL [facility] Aspartate Aminotransferase 28 0 - 39 unit/L [facility] Alanine Aminotransferase 43 0 - 55 unit/L [facility] Alkaline Phosphatase 103 40 - 130 unit/L [facility] Bilirubin, Total 0.5 0.2 - 1.3 mg/dL [facility] Est Glomerular Filtration Rate 55(L) >=60 mL/min/1. 73 m?? [facility] Comment: This patient's estimated [...] Costello MD CHEMISTRY ORDERABLES Performing Organization Address City/[facility] Co de Phone Number [facility] [place] [address] * T4, free (12/01/2022 1:45 PM EDT) Free T4 1.47 0.93 - 1.70 ng/dL [facility] Comment: Reference Interval (ng/dL): Females: ??First Trimester: 0.97-1.68 ??Second Trimester: 0.77-1.51 ??Third Trimester: 0.77-1.49 Blood 12/01/2022 1:45 PM EDT 12/01/2022 1:54 PM EDT Narrative Resulting Agency Comment Spec In Lab Albino Costello MD CHEMISTRY ORDERABLES Performing Organization Address City/[facility] Co de Phone Number [facility] [place] [address] * (ABNORMAL) TSH (12/01/2022 1:45 PM EDT) Thyroid Stimulating Hormone 4.26(H) 0.27 - 4.20 mcIU/mL [facility] Comment: Reference Interval (mcIU/mL): Females: ??First Trimester: 0.23-3.88 ??Second Trimester: 0.22-3.90 ??Third Trimester: 0.44-4.66 Blood 12/01/2022 1:45 PM EDT 12/01/2022 1:54 PM EDT Narrative Resulting Agency Comment Spec In Lab Albino Costello MD CHEMISTRY ORDERABLES [facility] [place] [address] * (ABNORMAL) Comprehensive metabolic panel (non-fasting) (12/01/2022 1:45 PM EDT) Glucose 122 65 - 199 mg/dL [facility] Comment:Diabetes: >=200 mg/d L plus symptoms Blood Urea Nitrogen 24(H) 10 - 20 mg/dL [facility] Creatinine 1.39 0.80 - 1.50 mg/dL [facility] Sodium 139 135 - 145 mmol/L [facility] Potassium 3.4(L) 3.5 - 5.0 mmol/L [facility] Comment: Please note: ??Patients with WBC >100,000 may have falsely elevated Potassium levels. ??For accurate Potassium quantification in these patients send serum separator tube (gold top) for subsequent determinations. ??Contact the Clinical Chemistry Laboratory if there are any questions. Chloride 103 98 - 107 mmol/L [facility] Carbon Dioxide 27 22 - 31 mmol/L [facility] Anion Gap 9 5 - 15 mmol/L [facility] Calcium 8.7 8.5 - 10.5 mg/dL [facility] Protein, Total 6.1 6.1 - 8.0 g/dL [facility] Albumin 3.7 3.2 - 5.2 g/dL [facility] Aspartate Aminotransferase 30 0 - 39 unit/L [facility] Alanine Aminotransferase 46 0 - 55 unit/L [facility] Alkaline Phosphatase 105 40 - 130 unit/L [facility] Bilirubin, Total 0.2 0.2 - 1.3 mg/dL [facility] Est Glomerular Filtration Rate 56(L) >=60 mL/min/1. 73 m?? [facility] Comment: This patient's estimated [...] Costello MD CHEMISTRY ORDERABLES Performing Organization Address [facility] Co de Phone Number [facility] [place] [address] * T4, free (11/06/2022 10:00 AM EDT) Free T4 1.32 0.93 - 1.70 ng/dL [facility] Comment: Reference Interval (ng/dL): Females: ??First Trimester: 0.97-1.68 ??Second Trimester: 0.77-1.51 ??Third Trimester: 0.77-1.49 Blood 11/06/2022 10:0 0 AM EDT 11/06/2022 10:11 AM EDT Narrative Resulting Agency Comment Spec In Lab Albino Costello MD CHEMISTRY ORDERABLES Performing Organization Address [facility] Co de Phone Number [facility] [place] [address] * (ABNORMAL) TSH (11/06/2022 10:00 AM EDT) Thyroid Stimulating Hormone 6.47(H) 0.27 - 4.20 mcIU/mL [facility] Comment: Reference Interval (mcIU/mL): Females: ??First Trimester: 0.23-3.88 ??Second Trimester: 0.22-3.90 ??Third Trimester: 0.44-4.66 Blood 11/06/2022 10:0 0 AM EDT 11/06/2022 10:11 AM EDT Narrative Resulting Agency Comment Spec In Lab Albino Costello MD CHEMISTRY ORDERABLES [facility] [address] * (ABNORMAL) Comprehensive metabolic panel (non-fasting) (11/06/2022 10:00 AM EDT) Glucose 108 65 - 199 mg/dL [facility] Comment:Diabetes: >=200 mg/d L plus symptoms Blood Urea Nitrogen 21(H) 10 - 20 mg/dL [facility] Creatinine 1.31 0.80 - 1.50 mg/dL [facility] Sodium 141 135 - 145 mmol/L [facility] Potassium 3.5 3.5 - 5.0 mmol/L [facility] Comment: Please note: ??Patients with WBC >100,000 may have falsely elevated Potassium levels. ??For accurate Potassium quantification in these patients send serum separator tube (gold top) for subsequent determinations. ??Contact the Clinical Chemistry Laboratory if there are any questions. Chloride 103 98 - 107 mmol/L [facility] Carbon Dioxide 29 22 - 31 mmol/L [facility] Anion Gap 9 5 - 15 mmol/L [facility] Calcium 8.9 8.5 - 10.5 mg/dL [facility] Protein, Total 6.6 6.1 - 8.0 g/dL [facility] Albumin 4.0 3.2 - 5.2 g/dL [facility] Aspartate Aminotransferase 37 0 - 39 unit/L [facility] Alanine Aminotransferase 57(H) 0 - 55 unit/L [facility] Alkaline Phosphatase 107 40 - 130 unit/L [facility] Bilirubin, Total 0.3 0.2 - 1.3 mg/dL [facility] Est Glomerular Filtration Rate 60 >=60 mL/min/1. 73 m?? [facility] Comment: This patient's estimated [...] Costello MD CHEMISTRY ORDERABLES Performing Organization Address City/[facility]/ZIP Co de Phone Number [facility] [place] [address] * T4, free (10/14/2022 12:23 PM EDT) Free T4 1.42 0.93 - 1.70 ng/dL [facility] Comment: Reference Interval (ng/dL): Females: ??First Trimester: 0.97-1.68 ??Second Trimester: 0.77-1.51 ??Third Trimester: 0.77-1.49 Blood 10/14/2022 12:2 3 PM EDT 10/14/2022 12:43 PM EDT Narrative Resulting Agency Comment Spec In Lab Albino Costello MD CHEMISTRY ORDERABLES Performing Organization Address City/[facility]/ZIP Co de Phone Number [facility] [place] [address] * TSH (10/14/2022 12:23 PM EDT) Thyroid Stimulating Hormone 3.13 0.27 - 4.20 mcIU/mL [facility] Comment: Reference Interval (mcIU/mL): Females: ??First Trimester: 0.23-3.88 ??Second Trimester: 0.22-3.90 ??Third Trimester: 0.44-4.66 Blood 10/14/2022 12:2 3 PM EDT 10/14/2022 12:43 PM EDT Narrative Resulting Agency Comment Spec In Lab Albnio Costello MD CHEMISTRY ORDERABLES Performing Organization Address City/[facility]/ZIP Co de Phone Number [facility] [address] * (ABNORMAL) Comprehensive metabolic panel (non-fasting) (10/14/2022 12:23 PM EDT) Glucose 125 65 - 199 mg/dL [facility] Comment:Diabetes: >=200 mg/d L plus symptoms Blood Urea Nitrogen 16 10 - 20 mg/dL [facility] Creatinine 1.23 0.80 - 1.50 mg/dL [facility] Sodium 138 135 - 145 mmol/L [facility] Potassium 3.9 3.5 - 5.0 mmol/L [facility] Comment: Please note: ??Patients with WBC >100,000 may have falsely elevated Potassium levels. ??For accurate Potassium quantification in these patients send serum separator tube (gold top) for subsequent determinations. ??Contact the Clinical Chemistry Laboratory if there are any questions. Chloride 105 98 - 107 mmol/L [facility] Carbon Dioxide 26 22 - 31 mmol/L [facility] Anion Gap 7 5 - 15 mmol/L [facility] Calcium 9.1 8.5 - 10.5 mg/dL [facility] Protein, Total 6.4 6.1 - 8.0 g/dL [facility] Albumin 4.0 3.2 - 5.2 g/dL [facility] Aspartate Aminotransferase 41(H) 0 - 39 unit/L [facility] Alanine Aminotransferase 87(H) 0 - 55 unit/L [facility] Alkaline Phosphatase 103 40 - 130 unit/L [facility] Bilirubin, Total 0.3 0.2 - 1.3 mg/dL [facility] Est Glomerular Filtration Rate 64 >=60 mL/min/1. 73 m?? [facility] Comment: This patient's estimated [...] Costello MD CHEMISTRY ORDERABLES Performing Organization Address City/[facility] Co de Phone Number [facility] [place] [address] * T4, free (09/16/2022 11:59 AM EDT) Free T4 1.30 0.93 - 1.70 ng/dL [facility] Comment: Reference Interval (ng/dL): Females: ??First Trimester: 0.97-1.68 ??Second Trimester: 0.77-1.51 ??Third Trimester: 0.77-1.49 Blood 09/16/2022 11:5 9 AM EDT 09/16/2022 12:13 PM EDT Narrative Resulting Agency Comment Spec In Lab Albino Costello MD CHEMISTRY ORDERABLES Performing Organization Address [facility] Co de Phone Number [facility] [place] [address] * (ABNORMAL) TSH (09/16/2022 11:59 AM EDT) Thyroid Stimulating Hormone 7.43(H) 0.27 - 4.20 mcIU/mL [facility] Comment: Reference Interval (mcIU/mL): Females: ??First Trimester: 0.23-3.88 ??Second Trimester: 0.22-3.90 ??Third Trimester: 0.44-4.66 Blood 09/16/2022 11:5 9 AM EDT 09/16/2022 12:13 PM EDT Narrative Resulting Agency Comment Spec In Lab Albino Costello MD CHEMISTRY ORDERABLES Performing Organization Address [facility] Co de Phone Number [facility] [place] [address] * (ABNORMAL) Comprehensive metabolic panel (non-fasting) (09/16/2022 11:59 AM EDT) Glucose 100 65 - 199 mg/dL [facility] Comment:Diabetes: >=200 mg/d L plus symptoms Blood Urea Nitrogen 19 10 - 20 mg/dL [facility] Creatinine 1.14 0.80 - 1.50 mg/dL [facility] Sodium 143 135 - 145 mmol/L [facility] Potassium 3.7 3.5 - 5.0 mmol/L [facility] Comment: Please note: ??Patients with WBC >100,000 may have falsely elevated Potassium levels. ??For accurate Potassium quantification in these patients send serum separator tube (gold top) for subsequent determinations. ??Contact the Clinical Chemistry Laboratory if there are any questions. Chloride 106 98 - 107 mmol/L [facility] Carbon Dioxide 30 22 - 31 mmol/L [facility] Anion Gap 7 5 - 15 mmol/L [facility] Calcium 9.0 8.5 - 10.5 mg/dL [facility] Protein, Total 6.3 6.1 - 8.0 g/dL [facility] Albumin 3.9 3.2 - 5.2 g/dL [facility] Aspartate Aminotransferase 79(H) 0 - 39 unit/L [facility] Alanine Aminotransferase 154(H) 0 - 55 unit/L [facility] Alkaline Phosphatase 99 40 - 130 unit/L [facility] Bilirubin, Total 0.3 0.2 - 1.3 mg/dL [facility] Est Glomerular Filtration Rate 70 >=60 mL/min/1. 73 m?? [facility] Comment: This patient's estimated [...] Costello MD CHEMISTRY ORDERABLES Performing Organization Address City/State/[facility] Co de Phone Number [facility] [place] [address] * T4, free (08/12/2022 8:37 AM EDT) Free T4 1.18 0.93 - 1.70 ng/dL [facility] Comment: Reference Interval (ng/dL): Females: ??First Trimester: 0.97-1.68 ??Second Trimester: 0.77-1.51 ??Third Trimester: 0.77-1.49 Blood 08/12/2022 8:37 AM EDT 08/12/2022 8:42 AM EDT Narrative Resulting Agency Comment Spec In Lab Albino Costello MD CHEMISTRY ORDERABLES Performing Organization Address [facility] Co de Phone Number [facility] [place] [address] * (ABNORMAL) TSH (08/12/2022 8:37 AM EDT) Thyroid Stimulating Hormone 16.70(H) 0.27 - 4.20 mcIU/mL [facility] Comment: Reference Interval (mcIU/mL): Females: ??First Trimester: 0.23-3.88 ??Second Trimester: 0.22-3.90 ??Third Trimester: 0.44-4.66 Blood 08/12/2022 8:37 AM EDT 08/12/2022 8:42 AM EDT Narrative Resulting Agency Comment Spec In Lab Albino Costello MD CHEMISTRY ORDERABLES Performing Organization Address [facility] Co de Phone Number [facility] [place] [address] * (ABNORMAL) Comprehensive metabolic panel (non-fasting) (08/12/2022 8:37 AM EDT) Glucose 107 65 - 199 mg/dL [facility] Comment:Diabetes: >=200 mg/d L plus symptoms Blood Urea Nitrogen 17 10 - 20 mg/dL [facility] Creatinine 1.20 0.80 - 1.50 mg/dL [facility] Sodium 144 135 - 145 mmol/L [facility] Potassium 3.8 3.5 - 5.0 mmol/L [facility] Comment: Please note: ??Patients with WBC >100,000 may have falsely elevated Potassium levels. ??For accurate Potassium quantification in these patients send serum separator tube (gold top) for subsequent determinations. ??Contact the Clinical Chemistry Laboratory if there are any questions. Chloride 108(H) 98 - 107 mmol/L [facility] Carbon Dioxide 28 22 - 31 mmol/L [facility] Anion Gap 8 5 - 15 mmol/L [facility] Calcium 8.8 8.5 - 10.5 mg/dL [facility] Protein, Total 6.2 6.1 - 8.0 g/dL [facility] Albumin 4.0 3.2 - 5.2 g/dL [facility] Aspartate Aminotransferase 42(H) 0 - 39 unit/L [facility] Alanine Aminotransferase 78(H) 0 - 55 unit/L [facility] Alkaline Phosphatase 111 40 - 130 unit/L [facility] Bilirubin, Total 0.5 0.2 - 1.3 mg/dL [facility] Est Glomerular Filtration Rate 66 >=60 mL/min/1. 73 m?? [facility] Comment: This patient's estimated [...] In Lab Albino Costello MD CHEMISTRY ORDERABLES [facility] [place] [address] * US Retroperitoneal Complete (07/13/2022 11:15 AM [...] evaluation. Electronically signed by: Josselyn Gaona MD, [facility] ([phone]), at 07/13/2022 12:50 PM Thank you for letting us participate in the care of this patient. If you are a health care provider and have any questions regarding this report, please contact the number above. For patients who have questions, please contact the health day care provider that requested your imaging first. ?Josselyn Gaona, [facility] Escrow Secretary Electronically Signed Final Report ?? 07/13/2022 12:57 pm Narrative 07/13/2022 12:58 PM EDT Renal ? (Signed Final 07/13/2022 12:57 pm) PATIENT INFO: ID #: ? [id number] ?: ??[birth year] (67 yrs)(M) Name: ? RAYMUNDO TENORIO ? Visit Date: 07/13/2022 10:56 am PERFORMED BY: Attending: ?Josselyn Gaona MD. Performed By: ? Purvi Miles RDMS Referred By: ?ALBINO COSTELLO Location: ? [place] SERVICE(S) PROVIDED: URETRO - Retroperitoneal Complete - [id number] ? [id number] INDICATIONS: Change in appearance of exophytic focus [...] 07/13/2022 12:57 pm) PATIENT INFO: ID #: [id number] : 55 (67 yrs)(M) Name: RAYMUNDO TENORIO Visit Date: 07/13/2022 10:56 am PERFORMED BY: Attending: Josselyn Gaona MD Performed By: Purvi Miles RDMS Referred By: ALBINO COSTELLO Location: [place] SERVICE(S) PROVIDED: URETRO - Retroperitoneal Complete - [id number] INDICATIONS: Change in appearance of exophytic focus [...] evaluation. Electronically signed by: Josselyn Gaona MD, [facility] ([phone]), at 07/13/2022 12:50 PM Thank you for letting us participate in the care of this patient. If you are a health care provider and have any questions regarding this report, please contact the number above. For patients who have questions, please contact the health day care provider that requested your imaging first. Josselyn Gaona, E Esc[employer] Secretary Electronically Signed Final Report 07/13/2022 12:57 pm [...] laterality documented in this encounter Care Teams Oleo Hasher And Renderer Relationship Specialty Start Date End Date Juan Dempsey MD [address] [place] [address] PCP - General Emergency Medicine 08/20/21 documented as of this encounter
--- OUTSIDE RECORDS SUMMARY | 2024-03-09 10:16 | XMS_ITS | Encounter Summary ---
Author Organization [facility] Address [facility] [place] [address] Care Team Providers Care Food And Drug Inspector Name Role Phone Juan Dempsey MD Primary Care Provider [phone] Encounter Details Date Type Department Care Team [...] [facility] [address] [place] [address] 03/29/2024 12:[address] [place] [place] [address] Albino Bartholomew MD [facility] [address] [place] [address] 04/05/2024 10:00 AM EST Office Visit [place]ology [place] [address] Albino Bartholomew MD [facility] [address] [place] [address] documented as of this encounter Visit Diagnoses Not on filedocumented in this encounter Care Teams Food And Drug Inspector Relationship Specialty Start Date End Date Juan Dempsey MD [address] [place] [address] PCP - General Emergency Medicine 08/20/21 documented as of this encounter
--- OUTSIDE RECORDS SUMMARY | 2024-03-09 10:16 | XMS_ITS | Encounter Summary ---
Author Organization [facility] Address [facility] [place] [address] Care Team Providers Care Advertising Representative Name Role Phone Juan Dempsey MD Primary Care Provider [phone] Encounter Details Date Type Department Care Team (Late st Contact Info) Description 08/31/2022 Telephone Hematology [place] [address] Daxa Arriola RN Social History [...] 9:31 AM EDT Message received from clinical ward secretary: [phone] Reports that he is having pain in [...] 10:30 AM EST Laboratory Appointment Lab at [facility] Hematology Oncology [address] [place] [address] 03/29/2024 12:[address] [place] [address] Albino Bartholomew MD [facility] [place] [address] 04/05/2024 10:00 AM EST Office Visit Hematology [place] [address] Albino Bartholomew MD [facility] [place] [address] documented as of this encounter Visit Diagnoses Not on filedocumented in this encounter Care Teams Advertising Representative Relationship Specialty Start Date End Date Juan Dempsey MD [address] [place] [address] PCP - General Emergency Medicine 08/20/21 documented as of this encounter
--- OUTSIDE RECORDS SUMMARY | 2024-03-09 10:16 | XMS_ITS | Encounter Summary ---
Author Organization [facility] [place] [address] Care Team Providers Care Territory Account Executive Name Role Phone Juan Dempsey MD Primary Care Provider [phone] Reason for Referral * Diagnostic Test (Routine) - Closed Specialty Diagnoses / Procedures Referred By Contac t Referred To Contact Radiology Diagnoses Metastatic renal cell carcinoma to lung, unspecified laterality Procedures CT Chest Abdomen Pelvis w Contrast (Generic) Albino Bartholomwe MD [facility] [address] HEMATOLOGY [place] [address] [facility] [place] [address] Referral ID Status Reason Start Date Expiration Date V isits Requested Visits Authorized [id number] Closed Specialty Service Requested 05/20/2022 11/18/2023 1 1 Reason for Visit * Diagnostic Test (Routine) - Closed Specialty Diagnoses / Procedures Referred By Contac t Referred To Contact Radiology Diagnoses Metastatic renal cell carcinoma to lung, unspecified laterality Procedures CT Chest Abdomen Pelvis w Contrast (Generic) Albino Bartholomew MD [facility] H[place]ATOLOGY [place] [address] [facility] [place] [address] Referral ID Status Reason Start Date Expiration Date V isits Requested Visits Authorized [id number] Closed Specialty Service Requested 05/20/2022 11/18/2023 1 1 Encounter Details Date Type Department Care Team (Latest Contact Info) Description 06/26/2022 10:53 AM EST - 06/26/2022 11:02 AM EST Hospital [place] [address] Albino Bartholomew MD [facility] [address] HEMATOLOGY [place] [address] Metastatic renal cell carcinoma to [...] 10:30 AM EST Laboratory Appointment Lab at [facility] Hematology Oncology [address] [place] [address] 03/29/2024 12:[address] [place] [address] Albino Bartholomew MD [facility] HEMATOLOGY [place] [address] 04/05/2024 10:00 AM EST Office Visit Hematology and Oncology at [facility] [place] [place] [address] Albino Bartholomew MD [facility] DR HEMATOLOGY [place] [address] documented as of this encounter Procedures Procedure [...] have questions please contact the health rn intensive care unit that requested your imaging first. ? Narrative [...] mLs documented in this encounter Care Teams Territory Account Executive Relationship Specialty Start Date End Date Juan Dempsey MD [address] [place] [address] PCP - General Emergency Medicine 08/20/21 documented as of this encounter
--- OUTSIDE RECORDS SUMMARY | 2024-03-09 10:16 | XMS_ITS | Encounter Summary ---
Author Organization [facility] Address [facility] [place] [address] Care Team Providers Care Chief Sustainability Officer Name Role Phone Juan Dempsey MD Primary Care Provider [phone] Reason for Visit * Reason Onset Date Comments Medication Refill 07/26/2022 Encounter Details Date Type Department Care Team (Late st Contact Info) Description 07/26/2022 [place] [address] Ana Pringle MD [facility] [place] [address] Autoimmune hepatitis Social History Tobacco Use Types [...] [facility] [place] [address] [place] [address] 03/29/2024 12:[address] [place] [place] [address] Albino Bartholomew MD [facility] DR HEMATOLOGY [place] [address] 04/05/2024 10:00 AM EST Office Visit Hematology [place] [address] Albino Bartholomew MD [facility] DR HEMATOLOGY [place] [address] documented as of this encounter Visit Diagnoses Diagnosis Autoimmune hepatitis documented in this encounter Care Teams Chief Sustainability Officer Relationship Specialty Start Date End Date Juan Dempsey MD [address] [place] [address] PCP - General Emergency Medicine 08/20/21 documented as of this encounter
--- OUTSIDE RECORDS SUMMARY | 2024-03-09 10:16 | XMS_ITS | Encounter Summary ---
Author Organization [facility] Address [facility] [address] Care Team Providers Care Manufacturing Engineering Manager Name Role Phone Juan Dempsey MD Primary Care Provider [phone] Encounter Details Date Type Department Care Team (Late st Contact Info) Description 09/07/2022 Telephone Hematology [place] [address] Daxa Arriola RN Social History [...] daily. Pt advised to call office at with any worsening symptoms or concerns. Pt verbalized understanding and agreement with plan. documented in this encounter Plan of Treatment Upcoming Encounters Date Type Department Care Team (Late st Contact Info) Description 03/29/2024 10:30 AM EST Laboratory Appointment Lab at [facility] Hematology Oncology [address] [place] [address] 03/29/2024 12:[address] [place] [place] [address] Albino Bartholomew MD [facility] [place] [address] 04/05/2024 10:00 AM EST Office Visit [place]ematology [place] [address] Albino Bartholomew MD [facility] [place] [address] documented as of this encounter Visit Diagnoses Not on filedocumented in this encounter Care Teams Manufacturing Engineering Manager Relationship Specialty Start Date End Date Juan Dempsey MD [address] [place] [address] PCP - General Emergency Medicine 08/20/21 documented as of this encounter
--- OUTSIDE RECORDS SUMMARY | 2024-03-09 10:16 | XMS_ITS | Encounter Summary ---
Author Organization [facility] Address [facility] [place] [address] Care Team Providers Care Record Cutter Name Role Phone Juan Dempsey MD Primary Care Provider [phone] Reason for Visit * Reason Comments Medication Refill Encounter Details Date Type Department Care Team (Late st Contact Info) Description 07/27/2022 Specialty [place] [phone] Talisha Holt, [facility] Social History Tobacco Use Types Packs/Day [...] Plan: Refill Specialty Pharmacy Consultation; Talisha Holt [facility] Comprehensive Medication Management (CMM) Cristofer Perezraymond Mr. [...] ??? Peanut Medication Reconciliation Discrepancies (compared to [facility] med list) No Specialty Pharmacy Refill [...] [facility] Hematology Oncology [address] [place] [address] 03/29/2024 12:[address] [place] [place] [address] Albino Bartholomew MD [facility] [address] HEMATOLOGY [place] [address] 04/05/2024 10:00 AM EST Office Visit [place]ematology [place] [address] Albino Bartholomew MD [facility] [address] HEMATOLOGY [place] [address] documented as of this encounter Visit Diagnoses Not on filedocumented in this encounter Care Teams Record Cutter Relationship Specialty Start Date End Date Juan Dempsey MD [address] [place] [address] PCP - General Emergency Medicine 08/20/21 documented as of this encounter
--- OUTSIDE RECORDS SUMMARY | 2024-03-09 10:16 | XMS_ITS | Encounter Summary ---
Author Organization [facility] [place] [address] Care Team Providers Care Glue Spreader Name Role Phone Juan Dempsey MD Primary Care Provider [phone] Reason for Referral * Diagnostic Test (Routine) - Closed Specialty Diagnoses / Procedures Referred By Contac t Referred To Contact Radiology Diagnoses Right kidney mass Renal cell carcinoma of left kidney Procedures MRI Abdomen wwo Contrast (Generic) Albino Bartholomew MD [facility] [address] [place] [address] [place] [address] Referral ID Status Reason Start Date Expiration Date V isits Requested Visits Authorized [id number] Closed Specialty Service Requested 07/22/2022 01/23/2024 1 1 Encounter Details Date Type Department Care Team (Late st Contact Info) Description 07/22/2022 Orders Only Hematology [place] [address] Albino Bartholomew MD [facility] [place] [address] Right kidney mass (Primary Dx); [...] [facility] Hematology Oncology [address] [place] [address] 03/29/2024 12:[address] [place] [address] Albino Bartholomew MD [facility] [place] [address] 04/05/2024 10:00 AM EST Office Visit Hematology and Oncology at [facility] [place] [address] Albino Bartholomew MD [facility] [address] [place] [address] documented as of this encounter Results * [...] who have questions please contact the health inspector health care facilities that requested your imaging first. ? Electronically signed by: Jd Muller DO, [facility] ([phone]), at 08/12/2022 9:58 AM Narrative 08/12/2022 9:58 [...] 02/06/2022, CT chest abdomen pelvis 06/26/2022 FINDINGS: Cut Off Saw Operator Metal Images: Noncontributory. Right Kidney: Lesion of concern [...] 02/06/2022, CT chest abdomen pelvis 06/26/2022 FINDINGS: Cut Off Saw Operator Metal Images: Noncontributory. Right Kidney: Lesion of concern [...] patients who have questions please contactthe health inspector health care facilities that requested your imaging first. Electronically signed by: Jd Muller DO, [facility]([phone]), at 08/12/2022 9:58 AM Albino Bartholomew MD IMG MRI ORDERABLES documented in this encounter Visit Diagnoses Diagnosis Right kidney mass- Primary Unspecified disorder of kidney and ureter Renal cell carcinoma of left kidney Right kidney mass Unspecified disorder of kidney and ureter Renal cell carcinoma of left kidney documented in this encounter Care Teams Glue Spreader Relationship Specialty Start Date End Date Juan Dempsey MD [address] [place] [address] PCP - General Emergency Medicine 08/20/21 documented as of this encounter
--- OUTSIDE RECORDS SUMMARY | 2024-03-09 10:16 | XMS_ITS | Encounter Summary ---
[place] [address] Care Team Providers Care Lime Kiln Tender Name Role Phone Juan Dempsey MD Primary Care Provider [phone] Encounter Details Date Type Department Care Team (Latest Contact Info) Description 09/16/2022 11:41 AM EDT - 09/16/2022 11:59 PM EDT Hospital Encounter Hematology [place] [phone] Drug-induced liver injury; Metastatic renal cell carcinoma [...] AM EST Laboratory Appointment Lab at [facility] Hematology Oncology [address] [place] [address] 03/29/2024 12:[address] [place] [phone] Albino Bartholomew MD [facility] [address] [place] [address] 04/05/2024 10:00 AM EST Office Visit Hematology [place] [address] Albino Bartholomew MD [facility] [address] [place] [address] Scheduled Orders Name Type Priority Associated Diagnoses [...] Bilirubin, Direct (09/16/2022 11:59 AM EDT) Pathologist [facility] Bilirubin, Direct 0.1 0.0 - 0.3 mg/dL [facility] Blood 09/16/2022 11:5 9 AM EDT 09/16/2022 12:13 PM EDT Narrative Resulting Agency Comment Spec In Lab Ana Pringle MD CHEMISTRY ORDERABLES [facility] [place] [address] * Differential, Automated (09/16/2022 11:59 AM EDT) Pathologist [facility] Neutrophil % 66.6 % [facility] Neutrophil Absolute 4.16 1.70 - 6.10 x10(3)/[facility] Lymph % 24.6 % [facility] Lymphocytes Abs 1.5 0.9 - 3.2 x10(3)/[facility] Monocyte % 4.5 % [facility] Monocyte Abs 0.3 0.3 - 0.9 x10(3)/[facility] Eos % 2.9 % [facility] Eosinophils Abs 0.2 0.0 - 0.4 x10(3)/[facility] Basophil % 1.1 % [facility] Baso Absolute 0.1 0.0 - 0.1 x10(3)/[facility] Immature Gran % 0.30 % [facility] Comment: Immature granulocytes(IG's)percentage and absolute count will include metamyelocytes, myelocytes, and promyelocytes. Blood smears from CBCs yielding IG's will be scanned manually for concordance. If this scan disagrees with the automated IG or if promyelocytes are noted, a manual differential will be performed. Immature Gran Absolute 0.02 0.00 - 0.04 x10(3)/[facility] Blood 09/16/2022 11:5 9 AM EDT 09/16/2022 12:13 PM EDT Narrative Resulting Agency Comment Spec In Lab Albino Bartholomew MD HEMATOLOGY ORDERABLE S [facility] [place] [address] * (ABNORMAL) Hemogram (09/16/2022 11:59 AM EDT) White Blood Cell 6.2 4.0 - 9.5 x10(3)/mc L [facility] Red Blood Cell 3.87(L) 4.58 - 5.54 x10(6)/mc L [facility] Hemoglobin 13.0(L) 13.7 - 16.5 g/dL [facility] Hematocrit 38.8(L) 40.5 - 48.5 % [facility] Mean Cell Volume 100.3(H) 82.9 - 93.1 fL [facility] Mean Cell Hemoglobin 33.6(H) 27.5 - 32.1 pg [facility] Mean Cell Hemoglobin Concentration 33.5 32.0 - 35.7 g/dL [facility] Platelet 157 145 - 357 x10(3)/mc L [facility] RDW Standard Deviation 51.8(H) 36.0 - 45.0 fL [facility] RDW coefficient of variation 14.0(H) 11.4 - 13.8 % [facility] Mean Platelet Volume 10.0 7.6 - 12.9 fL [facility] NRBC% auto 0.0 % [facility] NRBC Absolute 0.000 0.000 - 0.000 x10(3)/mc L [facility] Blood 09/16/2022 11:5 9 AM EDT 09/16/2022 12:13 PM EDT Narrative Resulting Agency Comment Spec In Lab Albino Bartholomew MD HEMATOLOGY ORDERABLE S [facility] [address] [place] [address] * (ABNORMAL) Comprehensive metabolic panel (non-fasting) (09/16/2022 11:59 AM EDT) Glucose 100 65 - 199 mg/dL [facility] Comment:Diabetes: >=200 mg/d L plus symptoms Blood Urea Nitrogen 19 10 - 20 mg/dL [facility] Creatinine 1.14 0.80 - 1.50 mg/dL [facility] Sodium 143 135 - 145 mmol/L [facility] Potassium 3.7 3.5 - 5.0 mmol/L [facility] Comment: Please note: ??Patients with WBC >100,000 may have falsely elevated Potassium levels. ??For accurate Potassium quantification in these patients send serum separator tube (gold top) for subsequent determinations. ??Contact the Clinical Chemistry Laboratory if there are any questions. Chloride 106 98 - 107 mmol/L [facility] Carbon Dioxide 30 22 - 31 mmol/L [facility] Anion Gap 7 5 - 15 mmol/L [facility] Calcium 9.0 8.5 - 10.5 mg/dL [facility] Protein, Total 6.3 6.1 - 8.0 g/dL [facility] Albumin 3.9 3.2 - 5.2 g/dL [facility] Aspartate Aminotransferase 79(H) 0 - 39 unit/L [facility] Alanine Aminotransferase 154(H) 0 - 55 unit/L [facility] Alkaline Phosphatase 99 40 - 130 unit/L [facility] Bilirubin, Total 0.3 0.2 - 1.3 mg/dL [facility] Est Glomerular Filtration Rate 70 >=60 mL/min/1. 73 m?? [facility] Comment: This patient's estimated GFR was [...] Bartholomew MD CHEMISTRY ORDERABLES Performing Organization Address City/[facility] Co de Phone Number [facility] [place] [address] * (ABNORMAL) TSH (09/16/2022 11:59 AM EDT) Thyroid Stimulating Hormone 7.43(H) 0.27 - 4.20 mcIU/mL [facility] Comment: Reference Interval (mcIU/mL): Females: ??First Trimester: 0.23-3.88 ??Second Trimester: 0.22-3.90 ??Third Trimester: 0.44-4.66 Blood 09/16/2022 11:5 9 AM EDT 09/16/2022 12:13 PM EDT Narrative Resulting Agency Comment Spec In Lab Albino Bartholomew MD CHEMISTRY ORDERABLES Performing Organization Address City/[facility] Co de Phone Number [facility] [place] [address] * T4, free (09/16/2022 11:59 AM EDT) Free T4 1.30 0.93 - 1.70 ng/dL [facility] Comment: Reference Interval (ng/dL): Females: ??First Trimester: 0.97-1.68 ??Second Trimester: 0.77-1.51 ??Third Trimester: 0.77-1.49 Blood 09/16/2022 11:5 9 AM EDT 09/16/2022 12:13 PM EDT Narrative Resulting Agency Comment Spec In Lab Albino Bartholomew MD CHEMISTRY ORDERABLES [facility] [place] [address] documented in this encounter Visit Diagnoses Diagnosis 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
--- OUTSIDE RECORDS SUMMARY | 2024-03-09 10:16 | XMS_ITS | Encounter Summary ---
Author Organization Formerly [facility] Address [facility] [place] [address] Care Team Providers Care Yoker Name Role Phone Juan Dempsey MD Primary Care Provider [phone] Encounter Details Date Type Department Care Team [...] [facility] Hematology Oncology [address] [place] [address] 03/29/2024 12:[address] [place] [address] Albino Bartholomew MD [facility] [place] [address] 04/05/2024 10:00 AM EST Office Visit Hematology [place] [address] Albino Bartholomew MD [facility] [place] [address] documented as of this encounter Visit Diagnoses Not on filedocumented in this encounter Care Teams Yoker Relationship Specialty Start Date End Date Juan Dempsey MD [address] [place] [address] PCP - General Emergency Medicine 08/20/21 documented as of this encounter
--- OUTSIDE RECORDS SUMMARY | 2024-03-09 10:16 | XMS_ITS | Encounter Summary ---
Author Organization [facility] Address [facility] [place] [address] Care Team Providers Care Software Systems Architect Name Role Phone Juan Dempsey MD Primary Care Provider [phone] Encounter Details Date Type Department Care Team (Latest Contact Info) Description 06/26/2022 11:03 AM EST - 06/26/2022 11:59 PM EST Hospital Encounter H[place]ology [place] [phone] Metastatic renal cell carcinoma to lung, unspecified [...] [facility] Hematology Oncology [address] [place] [address] 03/29/2024 12:[address] [place] [phone] Albino Bartholomew MD [facility] [address] [place] [address] 04/05/2024 10:00 AM EST Office Visit [place]ology [place] [address] Albino Bartholomew MD [facility] [address] [place] [address] Scheduled Orders Name Type Priority Associated Diagnoses [...] 11:12 AM EST) Neutrophil % 63.7 % [facility] Neutrophil Absolute 4.50 1.70 - 6.10 x10(3)/[facility] Lymph % 28.5 % [facility] Lymphocytes Abs 2.0 0.9 - 3.2 x10(3)/[facility] Monocyte % 4.7 % [facility] Monocyte Abs 0.3 0.3 - 0.9 x10(3)/[facility] Eos % 1.8 % [facility] Eosinophils Abs 0.1 0.0 - 0.4 x10(3)/[facility] Basophil % 1.0 % [facility] Baso Absolute 0.1 0.0 - 0.1 x10(3)/[facility] Immature Gran % 0.30 % [facility] Comment: Immature granulocytes(IG's)percentage and absolute count will include metamyelocytes, myelocytes, and promyelocytes. Blood smears from CBCs yielding IG's will be scanned manually for concordance. If this scan disagrees with the automated IG or if promyelocytes are noted, a manual differential will be performed. Immature Gran Absolute 0.02 0.00 - 0.04 x10(3)/[facility] Blood 06/26/2022 11:1 2 AM EST 06/26/2022 11:19 AM EST Narrative Resulting Agency Comment Spec In Lab Albino Bartholomew MD HEMATOLOGY ORDERABLE S [facility] [place] [address] * (ABNORMAL) Hemogram (06/26/2022 11:12 AM EST) White Blood Cell 7.1 4.0 - 9.5 x10(3)/mc L [facility] Red Blood Cell 4.12(L) 4.58 - 5.54 x10(6)/mc L [facility] Hemoglobin 13.2(L) 13.7 - 16.5 g/dL [facility] Hematocrit 38.2(L) 40.5 - 48.5 % [facility] Mean Cell Volume 92.7 82.9 - 93.1 fL [facility] Mean Cell Hemoglobin 32.0 27.5 - 32.1 pg [facility] Mean Cell Hemoglobin Concentration 34.6 32.0 - 35.7 g/dL [facility] Platelet 176 145 - 357 x10(3)/mc L [facility] RDW Standard Deviation 60.3(H) 36.0 - 45.0 fL [facility] RDW coefficient of variation 17.5(H) 11.4 - 13.8 % [facility] Mean Platelet Volume 9.7 7.6 - 12.9 fL [facility] NRBC% auto 0.0 % [facility] NRBC Absolute 0.000 0.000 - 0.000 x10(3)/mc L [facility] Blood 06/26/2022 11:1 2 AM EST 06/26/2022 11:19 AM EST Narrative Resulting Agency Comment Spec In Lab Albino Bartholomew MD HEMATOLOGY ORDERABLE S [facility] [place] [address] * T4, free (06/26/2022 11:12 AM EST) Free T4 1.34 0.93 - 1.70 ng/dL [facility] Comment: Reference Interval (ng/dL): Females: ??First Trimester: 0.97-1.68 ??Second Trimester: 0.77-1.51 ??Third Trimester: 0.77-1.49 Blood 06/26/2022 11:1 2 AM EST 06/26/2022 11:19 AM EST Narrative Resulting Agency Comment Spec In Lab Albino Bartholomew MD CHEMISTRY ORDERABLES Performing Organization Address [facility] [address]/[facility] de Phone Number [facility] [place] [address] * (ABNORMAL) TSH (06/26/2022 11:12 AM EST) Thyroid Stimulating Hormone 10.60(H) 0.27 - 4.20 mcIU/mL [facility] Comment: Reference Interval (mcIU/mL): Females: ??First Trimester: 0.23-3.88 ??Second Trimester: 0.22-3.90 ??Third Trimester: 0.44-4.66 Blood 06/26/2022 11:1 2 AM EST 06/26/2022 11:19 AM EST Narrative Resulting Agency Comment Spec In Lab Albino Bartholomew MD CHEMISTRY ORDERABLES Performing Organization Address [facility] [address]/[facility] de Phone Number [facility] [place] [address] * (ABNORMAL) Comprehensive metabolic panel (non-fasting) (06/26/2022 11:12 AM EST) Glucose 117 65 - 199 mg/dL [facility] Comment:Diabetes: >=200 mg/d L plus symptoms Blood Urea Nitrogen 28(H) 10 - 20 mg/dL [facility] Creatinine 1.80(H) 0.80 - 1.50 mg/dL [facility] Sodium 138 135 - 145 mmol/L [facility] Potassium 3.9 3.5 - 5.0 mmol/L [facility] Comment: Please note: ??Patients with WBC >100,000 may have falsely elevated Potassium levels. ??For accurate Potassium quantification in these patients send serum separator tube (gold top) for subsequent determinations. ??Contact the Clinical Chemistry Laboratory if there are any questions. Chloride 102 98 - 107 mmol/L [facility] Carbon Dioxide 27 22 - 31 mmol/L [facility] Anion Gap 9 5 - 15 mmol/L [facility] Calcium 9.1 8.5 - 10.5 mg/dL [facility] Protein, Total 6.6 6.1 - 8.0 g/dL [facility] Albumin 4.2 3.2 - 5.2 g/dL [facility] Aspartate Aminotransferase 42(H) 0 - 39 unit/L [facility] Alanine Aminotransferase 86(H) 0 - 55 unit/L [facility] Alkaline Phosphatase 121 40 - 130 unit/L [facility] Bilirubin, Total 0.6 0.2 - 1.3 mg/dL [facility] Est Glomerular Filtration Rate 41(L) >=60 mL/min/1. 73 m?? [facility] Comment: This patient's [...] In Lab Albino Bartholomew MD CHEMISTRY ORDERABLES [facility] [place] [address] documented in this encounter Visit Diagnoses Diagnosis Metastatic renal cell carcinoma to lung, unspecified laterality Abnormal thyroid function test Nonspecific abnormal results of thyroid function study High risk medication use Encounter for long-term (current) use of other medications documented in this encounter Care Teams Software Systems Architect Relationship Specialty Start Date End Date Juan Dempsey MD [address] [place] [address] PCP - General Emergency Medicine 08/20/21 documented as of this encounter
--- OUTSIDE RECORDS SUMMARY | 2024-03-09 10:16 | XMS_ITS | Encounter Summary ---
Author Organization [facility] Address [facility] [place] [address] Care Team Providers Care Electric Motor Tester Name Role Phone Juan Dempsey MD Primary Care Provider [phone] Encounter Details Date Type Department Care Team [...] Laboratory Appointment Lab at [place] Hematology Oncology [address] [place] [address] 03/29/2024 12:[address] [place] [address] Albino Bartholomew MD [facility] DR [place]AT[place] [address] 04/05/2024 10:00 AM EST Office Visit Hematology [place] [address] Albino Bartholomew MD [facility] DR [place]AT[place] [address] documented as of this encounter Visit Diagnoses Not on filedocumented in this encounter Care Teams Electric Motor Tester Relationship Specialty Start Date End Date Juan Dempsey MD [address] [place] [address] PCP - General Emergency Medicine 08/20/21 documented as of this encounter
--- OUTSIDE RECORDS SUMMARY | 2024-03-09 10:16 | XMS_ITS | Encounter Summary ---
Author Organization [facility] Address [facility] [place] [address] Care Team Providers Care Slip Presser Name Role Phone Juan Dempsey MD Primary Care Provider [phone] Encounter Details Date Type Department Care Team [...] EST Laboratory Appointment Lab at [facility] Hematology Oncology [address] [place] [address] 03/29/2024 12:[address] [place] [address] Albino Bartholomew MD [facility] [address] [place] [address] 04/05/2024 10:00 AM EST Office Visit [place]ematology [place] [address] Albino Bartholomew MD [facility] [address] [place] [address] documented as of this encounter Visit Diagnoses Not on filedocumented in this encounter Care Teams Slip Presser Relationship Specialty Start Date End Date Juan Dempsey MD [address] [place] [address] PCP - General Emergency Medicine 08/20/21 documented as of this encounter
--- OUTSIDE RECORDS SUMMARY | 2024-03-09 10:16 | XMS_ITS | Encounter Summary ---
Author Organization [facility] Address [facility] [place] [address] Care Team Providers Care Evp Sales Name Role Phone Juan Dempsey MD Primary Care Provider [phone] Reason for Visit * Reason Comments Specialty Refill Management Encounter Details Date Type Department Care Team (Late st Contact Info) Description 06/26/2022 Specialty [place] [phone] Reshma Gar, [facility] Social History Tobacco Use Types Packs/Day Years [...] this encounter Progress Notes * Reshma Gar [facility] - 06/26/2022 3:51 PM EST Clinical Management Plan: Refill Specialty Pharmacy Consultation; Reshma Gar [facility] Comprehensive Medication Management (CMM) Cristofer Stevensnaida Mr. [...] ??? Peanut Medication Reconciliation Discrepancies (compared to [facility] med list) No Specialty Pharmacy Refill [...] current drug regimen were made. Reshma Gar [facility] 06/26/22 3:53 PM documented in this encounter Plan of Treatment Upcoming Encounters Date Type Department Care Team (Late st Contact Info) Description 03/29/2024 10:30 AM EST Laboratory Appointment Lab at [facility] Hematology Oncology [address] [place] [address] 03/29/2024 12:[address] [place] [address] Albino Bartholomew MD [facility] DR HEMAT[place] [address] 04/05/2024 10:00 AM EST Office Visit Hematology [place] [address] Albino Bartholomew MD [facility] DR [place]EMAT[place] [address] documented as of this encounter Visit Diagnoses Not on filedocumented in this encounter Care Teams Evp Sales Relationship Specialty Start Date End Date Juan Dempsey MD [address] [place] [address] PCP - General Emergency Medicine 08/20/21 documented as of this encounter
--- OUTSIDE RECORDS SUMMARY | 2024-03-09 10:16 | XMS_ITS | Encounter Summary ---
Author Organization [facility] Address [facility] [place] [address] Care Team Providers Care Produce Clerk Name Role Phone Juan Dempsey MD Primary Care Provider [phone] Encounter Details Date Type Department Care Team (Latest Contact Info) Description 07/13/2022 10:54 AM EDT - 07/13/2022 11:59 PM EDT Hospital En[place] [phone] Albino Costello MD [facility] [address] [place] [address] Metastatic renal cell carcinoma to lung, unspecified [...] at [facility] [place]emat[place] Oncology [address] [place] [address] 03/29/2024 12:[address] [place] [phone] Albino Costello MD [facility] DR [place] [address] 04/05/2024 10:00 AM EST Office Visit Hematology [place] [address] Albino Costello MD [facility] DR [place] [address] documented as of this encounter Procedures Procedure [...] evaluation. Electronically signed by: Josselyn Gaona MD, [facility] ([phone]), at 07/13/2022 12:50 PM Thank you for letting us participate in the care of this patient. If you are a health care provider and have any questions regarding this report, please contact the number above. For patients who have questions, please contact the health care taker that requested your imaging first. ?Josselyn Gaona, [facility] Allergy Specialist Electronically Signed Final Report ?? 07/13/2022 12:57 pm Narrative 07/13/2022 12:58 PM EDT Renal ? (Signed Final 07/13/2022 12:57 pm) PATIENT INFO: ID #: ? [id number] ?: ??[birth year] (67 yrs)(M) Name: ? CRISTOFER TENORIO ? Visit Date: 07/13/2022 10:56 am PERFORMED BY: Attending: ?Candelaria CRAVEN, Josselyn Hudson Performed By: ? Purvi Miles RDMS Referred By: ?ALBINO COSTELLO Location: ? [place] SERVICE(S) PROVIDED: URETRO - Retroperitoneal Complete - [id number] ? [id number] INDICATIONS: Change in appearance of exophytic focus [...] 07/13/2022 12:57 pm) PATIENT INFO: ID #: [id number] : 55 (67 yrs)(M) Name: CRISTOFER TENORIO Visit Date: 07/13/2022 10:56 am PERFORMED BY: Attending: Josselyn Gaona MD Performed By: Purvi Miles RDMS Referred By: ALBINO COSTELLO Location: [place] SERVICE(S) PROVIDED: URETRO - Retroperitoneal Complete - [id number] INDICATIONS: Change in appearance of exophytic focus [...] evaluation. Electronically signed by: Josselyn Gaona MD, [facility] ([phone]), at 07/13/2022 12:50 PM Thank you for letting us participate in the care of this patient. If you are a health care provider and have any questions regarding this report, please contact the number above. For patients who have questions, please contact the health care taker that requested your imaging first. Josselyn Gaona, [facility] Allergy Specialist Electronically Signed Final Report 07/13/2022 12:57 pm Albino Costello MD IMG US GEN ORDERABLE S documented in this encounter Visit Diagnoses Diagnosis Metastatic renal cell carcinoma to lung, unspecified laterality documented in this encounter Care Teams Produce Clerk Relationship Specialty Start Date End Date Juan Dempsey MD [address] [place] [address] PCP - General Emergency Medicine 08/20/21 documented as of this encounter
--- OUTSIDE RECORDS SUMMARY | 2024-03-09 10:16 | XMS_ITS | Encounter Summary ---
Author Organization [facility] Address [facility] [place] [address] Care Team Providers Care Litigation Support Analyst Name Role Phone Juan Dempsey MD Primary Care Provider [phone] Reason for Visit * Reason Comments Follow-up Encounter Details Date Type Department Care Team (Late st Contact Info) Description 09/16/2022 2:00 PM EDT Office Visit Hematology [place] [address] Albino Bartholomew MD [facility] [address] [place] [address] Kyle Donohue PA [facility] [place] [address] Metastatic renal cell carcinoma to lung, unspecified [...] the abdomen and pelvis. 10/20/21 CXR ([facility]): 10/16/21: IMPRESSION 1. Unexpected finding: New 6 [...] We'll send orders and I'll ask our product marketing manager to f/u on results. Advised pt [...] 10:30 AM EST Laboratory Appointment Lab at [facility] [place] Hematology Oncology [address] [place] [address] 03/29/2024 12:[address] [place] [address] Albino Bartholomew MD [facility] [place] [address] 04/05/2024 10:00 AM EST Office Visit Hematology [place] [address] Albino Bartholomew MD [facility] [address] [place] [address] documented as of this encounter Visit Diagnoses Diagnosis Metastatic renal cell carcinoma to lung, unspecified laterality High risk medication use Encounter for long-term (current) use of other medications Abnormal thyroid function test Nonspecific abnormal results of thyroid function study Elevated LFTs Other abnormal blood chemistry Autoimmune hepatitis Drug-induced liver injury documented in this encounter Care Teams Litigation Support Analyst Relationship Specialty Start Date End Date Juan Dempsey MD [address] [place] [address] PCP - General Emergency Medicine 08/20/21 documented as of this encounter
--- OUTSIDE RECORDS SUMMARY | 2024-03-09 10:16 | XMS_ITS | Encounter Summary ---
Author Organization [facility] Address [facility] [place] [address] Care Team Providers Care Mechanical Planner Name Role Phone Juan Dempsey MD Primary Care Provider [phone] Reason for Visit * Reason Comments Specialty Pharmacy Review Cabometyx 40mg tablet Encounter Details Date Type Department Care Team (Late st Contact Info) Description 08/12/2022 Specialty [place] [phone] Kelin Chong, [facility] Social History Tobacco Use Types Packs/Day [...] Chong - 08/12/2022 11:59 PM EDT [facility] has completed a benefits investigation for Cristofer Tenorio to review their eligibility to fill at [facility]. Per patient's medication list they are prescribedCabometyx 40mg tablet and the medication is able to be filled at the [facility]. The patient is currently filling the medication through Specialty Pharmacy with a $0 copay. PA approved until 2025 documented in this encounter Plan of Treatment Upcoming Encounters Date Type Department Care Team (Late st Contact Info) Description 03/29/2024 10:30 AM EST Laboratory Appointment Lab at [facility] Hematology Oncology [address] [place] [address] 03/29/2024 12:[address] [place] [address] Albino Bartholomew MD [facility] [address] [place] [address] 04/05/2024 10:00 AM EST Office Visit [place]ematology [place] [address] Albino Bartholomew MD [facility] [address] [place] [address] documented as of this encounter Visit Diagnoses Not on filedocumented in this encounter Care Teams Mechanical Planner Relationship Specialty Start Date End Date Juan Dempsey MD [address] [place] [address] PCP - General Emergency Medicine 08/20/21 documented as of this encounter
--- OUTSIDE RECORDS SUMMARY | 2024-03-09 10:16 | XMS_ITS | Encounter Summary ---
Author Organization [facility] Address [facility] [place] [address] Care Team Providers Care Meat Service Team Member Name Role Phone Juan Dempsey MD Primary Care Provider [phone] Encounter Details Date Type Department Care Team [...] AM EST Laboratory Appointment Lab at [facility] Hematology Oncology [address] [place] [address] 03/29/2024 12:[address] [place] [address] Albino Bartholomew MD [facility] [address] HEMATOLOGY [place] [address] 04/05/2024 10:00 AM EST Office Visit [place]ology [place] [address] Albino Bartholomew MD [facility] DR HEMATOLOGY [place] [address] documented as of this encounter Visit Diagnoses Not on filedocumented in this encounter Care Teams Meat Service Team Member Relationship Specialty Start Date End Date Juan Dempsey MD [address] [place] [address] PCP - General Emergency Medicine 08/20/21 documented as of this encounter
--- OUTSIDE RECORDS SUMMARY | 2024-03-09 10:16 | XMS_ITS | Encounter Summary ---
Author Organization [facility] [place] [address] Care Team Providers Care Loin Trimmer Name Role Phone Juan Dempsey MD Primary Care Provider [phone] Encounter Details Date Type Department Care Team (Latest Contact Info) Description 08/12/2022 8:27 AM EDT - 08/12/2022 11:59 PM EDT Hospital Encounter [place] [phone] Metastatic renal cell carcinoma to lung, unspecified [...] 10:30 AM EST Laboratory Appointment Lab at [facility] [place] Hematology Oncology [address] [place] [address] 03/29/2024 12:[address] [place] [phone] Albino Bartholomew MD [facility] DR HEMATOLOGY [place] [address] 04/05/2024 10:00 AM EST Office Visit [place]ology [place] [address] Albino Bartholomew MD [facility] DR HEMATOLOGY [place] [address] Scheduled Orders Name Type Priority Associated Diagnoses [...] * Bilirubin, Direct (08/12/2022 8:37 AM EDT) Pathologist [facility] Bilirubin, Direct 0.2 0.0 - 0.3 mg/dL [facility] Blood 08/12/2022 8:37 AM EDT 08/12/2022 8:42 AM EDT Narrative Resulting Agency Comment Spec In Lab Ana Pringle MD CHEMISTRY ORDERABLES [facility] [place] [address] * Differential, Automated (08/12/2022 8:37 AM EDT) [facility] Neutrophil % 68.7 % [facility] Neutrophil Absolute 4.64 1.70 - 6.10 x10(3)/[facility] Lymph % 22.8 % [facility] Lymphocytes Abs 1.5 0.9 - 3.2 x10(3)/[facility] Monocyte % 4.4 % [facility] Monocyte Abs 0.3 0.3 - 0.9 x10(3)/[facility] Eos % 2.7 % [facility] Eosinophils Abs 0.2 0.0 - 0.4 x10(3)/[facility] Basophil % 1.0 % [facility] Baso Absolute 0.1 0.0 - 0.1 x10(3)/[facility] Immature Gran % 0.40 % [facility] Comment: Immature granulocytes(IG's)percentage and absolute count will include metamyelocytes, myelocytes, and promyelocytes. Blood smears from CBCs yielding IG's will be scanned manually for concordance. If this scan disagrees with the automated IG or if promyelocytes are noted, a manual differential will be performed. Immature Gran Absolute 0.03 0.00 - 0.04 x10(3)/mcL [facility] Blood 08/12/2022 8:37 AM EDT 08/12/2022 8:42 AM EDT Narrative Resulting Agency Comment Spec In Lab Albino Bartholomew MD HEMATOLOGY ORDERABLE S [facility] [place] [address] * (ABNORMAL) Hemogram (08/12/2022 8:37 AM EDT) [...] of variation 14.5(H) 11.4 - 13.8 % [facility] Mean Platelet Volume 9.7 7.6 - 12.9 fL [facility] NRBC% auto 0.0 % [facility] NRBC Absolute 0.000 0.000 - 0.000 x10(3)/mc L [facility] Blood 08/12/2022 8:37 AM EDT 08/12/2022 8:42 AM EDT Narrative Resulting Agency Comment Spec In Lab Albino Bartholomew MD HEMATOLOGY ORDERABLE S Performing Organization Address [facility] Co de Phone Number [facility] [place] [address] * T4, free (08/12/2022 8:37 AM EDT) Free T4 1.18 0.93 - 1.70 ng/dL [facility] Comment: Reference Interval (ng/dL): Females: ??First Trimester: 0.97-1.68 ??Second Trimester: 0.77-1.51 ??Third Trimester: 0.77-1.49 Blood 08/12/2022 8:37 AM EDT 08/12/2022 8:42 AM EDT Narrative Resulting Agency Comment Spec In Lab Albino Bartholomew MD CHEMISTRY ORDERABLES Performing Organization Address [facility] Co de Phone Number [facility] [place] [address] * (ABNORMAL) TSH (08/12/2022 8:37 AM EDT) Thyroid Stimulating Hormone 16.70(H) 0.27 - 4.20 mcIU/mL [facility] Comment: Reference Interval (mcIU/mL): Females: ??First Trimester: 0.23-3.88 ??Second Trimester: 0.22-3.90 ??Third Trimester: 0.44-4.66 Blood 08/12/2022 8:37 AM EDT 08/12/2022 8:42 AM EDT Narrative Resulting Agency Comment Spec In Lab Albino Bartholomew MD CHEMISTRY ORDERABLES Performing Organization Address [facility] Co de Phone Number [facility] [place] [address] * (ABNORMAL) Comprehensive metabolic panel (non-fasting) (08/12/2022 [...] Bartholomew MD CHEMISTRY ORDERABLES [facility] [place] [address] documented in this encounter Visit Diagnoses Diagnosis Metastatic renal cell carcinoma to lung, unspecified laterality High risk medication use Encounter for long-term (current) use of other medications Abnormal thyroid function test Nonspecific abnormal results of thyroid function study Autoimmune hepatitis documented in this encounter Care Teams Loin Trimmer Relationship Specialty Start Date End Date Juan Dempsey MD [address] [place] [address] PCP - General Emergency Medicine 08/20/21 documented as of this encounter
--- OUTSIDE RECORDS SUMMARY | 2024-03-09 10:17 | XMS_ITS | Encounter Summary ---
Author Organization [facility] Address [facility] [place] [address] Care Team Providers Care Security Strategist Name Role Phone Juan Dempsey MD Primary Care Provider [phone] Encounter Details Date Type Department Care Team (Latest Contact Info) Description 05/20/2022 7:47 AM EST - 05/20/2022 11:59 PM EST Hospital Encounter Hematology [place] [phone] Drug-induced liver injury; Metastatic renal cell carcinoma [...] [facility] Hematology Oncology [address] [place] [address] 03/29/2024 12:[address] [place] [address] Albino Bartholomew MD [facility] DR HEMATOLOGY [place] [address] 04/05/2024 10:00 AM EST Office Visit Hematology [place] [address] Albino Bartholomew MD [facility] DR HEMATOLOGY [place] [address] Scheduled Orders Name Type Priority Associated Diagnoses [...] Bilirubin, Direct (05/20/2022 7:56 AM EST) Pathologist [facility] Bilirubin, Direct 0.1 0.0 - 0.3 mg/dL [facility] Blood 05/20/2022 7:56 AM EST 05/20/2022 8:02 AM EST Narrative Resulting Agency Comment Spec In Lab Ana Pringle MD CHEMISTRY ORDERABLES [facility] [place] [address] * Differential, Automated (05/20/2022 7:56 AM EST) Neutrophil % 62.0 % [facility] Neutrophil Absolute 4.46 1.70 - 6.10 x10(3)/[facility] Lymph % 30.3 % [facility] Lymphocytes Abs 2.2 0.9 - 3.2 x10(3)/[facility] Monocyte % 4.6 % [facility] Monocyte Abs 0.3 0.3 - 0.9 x10(3)/[facility] Eos % 2.2 % [facility] Eosinophils Abs 0.2 0.0 - 0.4 x10(3)/[facility] Basophil % 0.8 % [facility] Baso Absolute 0.1 0.0 - 0.1 x10(3)/[facility] Immature Gran % 0.10 % [facility] Comment: Immature granulocytes(IG's)percentage and absolute count will include metamyelocytes, myelocytes, and promyelocytes. Blood smears from CBCs yielding IG's will be scanned manually for concordance. If this scan disagrees with the automated IG or if promyelocytes are noted, a manual differential will be performed. Immature Gran Absolute 0.01 0.00 - 0.04 x10(3)/[facility] Blood 05/20/2022 7:56 AM EST 05/20/2022 8:02 AM EST Narrative Resulting Agency Comment Spec In Lab Albino Bartholomew MD HEMATOLOGY ORDERABLE S Performing Organization Address City/State/[facility] Co de Phone Number [facility] [place] [address] * (ABNORMAL) Hemogram (05/20/2022 7:56 AM EST) White Blood Cell 7.2 4.0 - 9.5 x10(3)/mc L [facility] Red Blood Cell 4.46(L) 4.58 - 5.54 x10(6)/ L [facility] Hemoglobin 13.7 13.7 - 16.5 g/dL [facility] Hematocrit 39.8(L) 40.5 - 48.5 % [facility] Mean Cell Volume 89.2 82.9 - 93.1 fL [facility] Mean Cell Hemoglobin 30.7 27.5 - 32.1 pg [facility] Mean Cell Hemoglobin Concentration 34.4 32.0 - 35.7 g/dL [facility] Platelet 158 145 - 357 x10(3)/mc L [facility] RDW Standard Deviation 56.8(H) 36.0 - 45.0 fL [facility] RDW coefficient of variation 17.4(H) 11.4 - 13.8 % [facility] Mean Platelet Volume 9.9 7.6 - 12.9 fL [facility] NRBC% auto 0.0 % [facility] NRBC Absolute 0.000 0.000 - 0.000 x10(3)/mc L [facility] Blood 05/20/2022 7:56 AM EST 05/20/2022 8:02 AM EST Narrative Resulting Agency Comment Spec In Lab Albino Bartholomew MD HEMATOLOGY ORDERABLE S [facility] [place] [address] * (ABNORMAL) Comprehensive metabolic panel (non-fasting) (05/20/2022 7:56 AM EST) Glucose 103 65 - 199 mg/dL [facility] Comment:Diabetes: >=200 mg/d L plus symptoms Blood Urea Nitrogen 31(H) 10 - 20 mg/dL [facility] Creatinine 1.71(H) 0.80 - 1.50 mg/dL [facility] Sodium 141 135 - 145 mmol/L [facility] Potassium 3.4(L) 3.5 - 5.0 mmol/L [facility] Comment: Please note: ??Patients with WBC >100,000 may have falsely elevated Potassium levels. ??For accurate Potassium quantification in these patients send serum separator tube (gold top) for subsequent determinations. ??Contact the Clinical Chemistry Laboratory if there are any questions. Chloride 104 98 - 107 mmol/L [facility] Carbon Dioxide 26 22 - 31 mmol/L [facility] Anion Gap 11 5 - 15 mmol/L [facility] Calcium 9.4 8.5 - 10.5 mg/dL [facility] Protein, Total 6.5 6.1 - 8.0 g/dL [facility] Albumin 4.0 3.2 - 5.2 g/dL [facility] Aspartate Aminotransferase 62(H) 0 - 39 unit/L [facility] Alanine Aminotransferase 160(H) 0 - 55 unit/L [facility] Alkaline Phosphatase 122 40 - 130 unit/L [facility] Bilirubin, Total 0.5 0.2 - 1.3 mg/dL [facility] Est Glomerular Filtration Rate 43(L) >=60 mL/min/1. 73 m?? [facility] Comment: This patient's estimated GFR [...] ORDERABLES Performing Organization Address City/[facility] Co de Phone Number [facility] [place] [address] * (ABNORMAL) TSH (05/20/2022 7:56 AM EST) Thyroid Stimulating Hormone 14.70(H) 0.27 - 4.20 mcIU/mL [facility] Comment: Reference Interval (mcIU/mL): Females: ??First Trimester: 0.23-3.88 ??Second Trimester: 0.22-3.90 ??Third Trimester: 0.44-4.66 Blood 05/20/2022 7:56 AM EST 05/20/2022 8:02 AM EST Narrative Resulting Agency Comment Spec In Lab Albino Bartholomew MD CHEMISTRY ORDERABLES [facility] [place] [address] * T4, free (05/20/2022 7:56 AM EST) Free T4 1.38 0.93 - 1.70 ng/dL [facility] Comment: Reference Interval (ng/dL): Females: ??First Trimester: 0.97-1.68 ??Second Trimester: 0.77-1.51 ??Third Trimester: 0.77-1.49 Blood 05/20/2022 7:56 AM EST 05/20/2022 8:02 AM EST Narrative Resulting Agency Comment Spec In Lab Albino Bartholomew MD CHEMISTRY ORDERABLES Performing Organization Address City/State/[facility] Co de Phone Number [facility] [place] [address] documented in this encounter Visit Diagnoses Diagnosis 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
--- OUTSIDE RECORDS SUMMARY | 2024-03-09 10:17 | XMS_ITS | Encounter Summary ---
Author Organization [facility] Address [facility] [place] [address] Care Team Providers Care Change Consultant Name Role Phone Juan Dempsey MD Primary Care Provider Encounter Details Date Type Department Care Team (Late st Contact Info) Description 06/18/2022 External Results [place] [address] Ana Pringle MD [facility] [place] [address] Social History Tobacco Use Types Packs/Day Years [...] 10:30 AM EST Laboratory Appointment Lab at [facility] Hematology Oncology [address] [place] [address] 03/29/2024 12:[address] [place] [address] Albino Bartholomew MD [facility] [place] [address] 04/05/2024 10:00 AM EST Office Visit Hematology [place] [address] Albino Bartholomew MD [facility] [place] [address] documented as of this encounter Procedures Procedure Name Priority Date/Time Associated Diagnosis Comments EXTERNAL LAB CBC CMP THYROID RESULTS PANEL Routine 06/17/2022 documented in this encounter Results * CBC / CMP / Thyroid External Results (06/17/2022) Protein, Total 6.9 Albumin 3.7 Bilirubin, Total 0.6 Alkaline Phosphatase 126 Aspartate Aminotransferase 60 Alanine Aminotransferase 146 Historical Provider MD EXTERNAL LAB SUNITHA SERRANO documented in this encounter Visit Diagnoses Not on filedocumented in this encounter Care Teams Change Consultant Relationship Specialty Start Date End Date Juan Dempsey MD [address] [place] [address] PCP - General Emergency Medicine 08/20/21 documented as of this encounter
--- OUTSIDE RECORDS SUMMARY | 2024-03-09 10:17 | XMS_ITS | Encounter Summary ---
Author Organization [facility] Address [facility] [place] [address] Care Team Providers Care Supervisor [employer] Former Name Role Phone Juan Dempsey MD Primary Care Provider [phone] Encounter Details Date Type Department Care Team (Late st Contact Info) Description 06/10/2022 External Results [place] [phone] Rachell Shrestha, RN Social History Tobacco Use [...] [facility] Hematology Oncology [address] [place] [address] 03/29/2024 12:[address] [place] [address] Albino Bartholomew MD [facility] DR HEMATOLOGY [place] [address] 04/05/2024 10:00 AM EST Office Visit Hematology [place] [address] Albino Bartholomew MD [facility] DR HEMATOLOGY [place] [address] documented as of this encounter Procedures Procedure [...] filedocumented in this encounter Care Teams Supervisor [employer] Former Relationship Specialty Start Date End Date Juan Dempsey MD [address] [place] [address] PCP - General Emergency Medicine 08/20/21 documented as of this encounter
--- OUTSIDE RECORDS SUMMARY | 2024-03-09 10:17 | XMS_ITS | Encounter Summary ---
Author Organization [facility] Address [facility] [place] [address] Care Team Providers Care Power Brake Operator Name Role Phone Juan Dempsey MD Primary Care Provider [phone] Encounter Details Date Type Department Care Team (Late st Contact Info) Description 04/30/2022 Abstract [place] [address] Ana Pringle MD [facility] [place] [address] Social History Tobacco Use Types Packs/Day Years [...] [facility] Hematology Oncology [address] [place] [address] 03/29/2024 12:[address] [place] [address] Albino Bartholomew MD [facility] DR [place] [address] 04/05/2024 10:00 AM EST Office Visit Hematology [place] [address] Albino Bartholomew MD [facility] DR [place] [address] documented as of this encounter Visit Diagnoses Not on filedocumented in this encounter Care Teams Power Brake Operator Relationship Specialty Start Date End Date Juan Dempsey MD [address] [place] [address] PCP - General Emergency Medicine 08/20/21 documented as of this encounter
--- OUTSIDE RECORDS SUMMARY | 2024-03-09 10:17 | XMS_ITS | Encounter Summary ---
Author Organization [facility] Address [facility] [place] [address] Care Team Providers Care Guest Services Representative Name Role Phone Juan Dempsey MD Primary Care Provider [phone] Reason for Visit * Reason Comments Specialty Pharmacy Review Cabometyx 40mg tablet Encounter Details Date Type Department Care Team (Late st Contact Info) Description 05/20/2022 Specialty [place] [phone] Kelin Chong, [facility] Social History Tobacco Use Types Packs/Day [...] Chong - 05/20/2022 11:59 PM EST The [facility] has completed a benefits investigation for Cristofer Tenorio to review their eligibility to fill at [facility]. Per patient's medication list they are prescribedCabometyx 40mg tablet and the medication is able to be filled at the [facility]. The patient is currently filling the medication through Specialty Pharmacy with a $0 copay. PA approved until 2025 documented in this encounter Plan of Treatment Upcoming Encounters Date Type Department Care Team (Late st Contact Info) Description 03/29/2024 10:30 AM EST Laboratory Appointment Lab at [facility] Hematology Oncology [address] [place] [address] 03/29/2024 12:[address] [place] [address] Albino Bartholomew MD [facility] DR [place] [address] 04/05/2024 10:00 AM EST Office Visit Hematology [place] [address] Albino Bartholomew MD [facility] DR [place] [address] documented as of this encounter Visit Diagnoses Not on filedocumented in this encounter Care Teams Guest Services Representative Relationship Specialty Start Date End Date Juan Dempsey MD [address] [place] [address] PCP - General Emergency Medicine 08/20/21 documented as of this encounter
--- OUTSIDE RECORDS SUMMARY | 2024-03-09 10:17 | XMS_ITS | Encounter Summary ---
Author Organization [facility] Address [facility] [place] [address] Care Team Providers Care Functional Consultant Name Role Phone Juan Dempsey MD Primary Care Provider [phone] Encounter Details Date Type Department Care Team [...] [facility] Hematology Oncology [address] [place] [address] 03/29/2024 12:[address] [place] [address] Albino Bartholomew MD [facility] DR [place] [address] 04/05/2024 10:00 AM EST Office Visit [place] [address] Albino Bartholomew MD [facility] DR [place] [address] documented as of this encounter Visit Diagnoses Not on filedocumented in this encounter Care Teams Functional Consultant Relationship Specialty Start Date End Date Juan Dempsey MD [address] [place] [address] PCP - General Emergency Medicine 08/20/21 documented as of this encounter
--- OUTSIDE RECORDS SUMMARY | 2024-03-09 10:17 | XMS_ITS | Encounter Summary ---
Author Organization [facility] Address [facility] [place] [address] Care Team Providers Care Employment Counselor Name Role Phone Juan Dempsey MD Primary Care Provider [phone] Encounter Details Date Type Department Care Team (Latest Contact Info) Description 05/22/2022 9:30 AM EST TH Visit (TeleHealth) [place] [phone] Ana Pringle MD [facility] [place] [address] Drug-induced liver injury; Autoimmune hepatitis Social History [...] (Left); Achilles tendon surgery; Remv Kidney, Radical (64349) (Left, 06/23/2021); Cystourethroscopy (25676) (N/A, 06/23/2021); Colonoscopy, Diagnostic ([id number]) (N/A, 10/02/2021); and CT Guided Biopsy Lung [...] of prior records): See HPI Assessment/Plan: Mr. Tneorio is a 67 y.o. patient with drug-induced [...] with patient on above. Was located in [place] at the time ofthis encounter. Approximae time in review of records and documentation 5 minutes. Approximate totaltime devoted to this single encounter on the day of the encounter: 25 minutes Ana Pringle MD [facility] [place] [address] documented in this encounter Plan of Treatment Upcoming Encounters Date Type Department Care Team (Late st Contact Info) Description 03/29/2024 10:30 AM EST Laboratory Appointment Lab at [facility] Hematology Oncology [address] [place] [address] 03/29/2024 12:[address] [place] [address] Albino Bartholomew MD [facility] DR HEMATOLOGY [place] [address] 04/05/2024 10:00 AM EST Office Visit Hematology [place] [address] Albino Bartholomew MD [facility] DR HEMATOLOGY [place] [address] documented as of this encounter Visit Diagnoses Diagnosis Drug-induced liver injury Autoimmune hepatitis documented in this encounter Care Teams Employment Counselor Relationship Specialty Start Date End Date Juan Dempsey MD [address] [place] [address] PCP - General Emergency Medicine 08/20/21 documented as of this encounter
--- OUTSIDE RECORDS SUMMARY | 2024-03-09 10:17 | XMS_ITS | Encounter Summary ---
Author Organization [facility] Address [facility] [place] [address] Care Team Providers Care Foreign Language Professor Name Role Phone Juan Dempsey MD Primary Care Provider [phone] Encounter Details Date Type Department Care Team (Late st Contact Info) Description 05/07/2022 External Results [place] [address] Ana Pringle MD [facility] [place]STRO[place] [address] Social History Tobacco Use Types Packs/Day Years [...] [facility] On[facility] [address] [place] [address] 03/29/2024 12:[address] [place] [address] Albino Batrholomew MD [facility] DR HEMATOLOGY [place] [address] 04/05/2024 10:00 AM EST Office Visit Hematology [place] [address] Albino Bartholomew MD [facility] DR HEMATOLOGY [place] [address] documented as of this encounter Procedures Procedure Name Priority Date/Time Associated Diagnosis Comments EXTERNAL LAB CBC CMP THYROID RESULTS PANEL Routine 05/06/2022 documented in this encounter Results * CBC / CMP / Thyroid External Results (05/06/2022) Protein, Total 7.4 Albumin 3.6 Bilirubin, Total 0.7 Alkaline Phosphatase 154 Aspartate Aminotransferase 79 Alanine Aminotransferase 236 Historical Provider MD EXTERNAL LAB SUNITHA SERRANO documented in this encounter Visit Diagnoses Not on filedocumented in this encounter Care Teams Foreign Language Professor Relationship Specialty Start Date End Date Juan Dempsey MD [address] [place] [address] PCP - General Emergency Medicine 08/20/21 documented as of this encounter
--- OUTSIDE RECORDS SUMMARY | 2024-03-09 10:17 | XMS_ITS | Encounter Summary ---
Author Organization [facility] Address [facility] [place] [address] Care Team Providers Care Necktie Maker Name Role Phone Juan Dempsey MD Primary Care Provider [phone] Encounter Details Date Type Department Care Team [...] [facility] Hematology Oncology [address] [place] [address] 03/29/2024 12:[address] [place] [address] Albino Bartholomew MD [facility] DR HEMATOLOGY [place] [address] 04/05/2024 10:00 AM EST Office Visit Hematology [place] [address] Albino Bartholomew MD [facility] DR HEMATOLOGY [place] [address] documented as of this encounter Visit Diagnoses Not on filedocumented in this encounter Care Teams Necktie Maker Relationship Specialty Start Date End Date Juan Dempsey MD [address] [place] [address] PCP - General Emergency Medicine 08/20/21 documented as of this encounter
--- OUTSIDE RECORDS SUMMARY | 2024-03-09 10:17 | XMS_ITS | Encounter Summary ---
Author Organization [facility] Address [facility] [place] [address] Care Team Providers Care Surgical Lead Name Role Phone Juan Dempsey MD Primary Care Provider [phone] Encounter Details Date Type Department Care Team (Latest Contact Info) Description 04/15/2022 1:34 PM EST - 04/15/2022 11:59 PM EST Hospital Encounter [place]ology [place] [phone] Renal cell carcinoma, unspecified laterality; Metastatic renal [...] [facility] [place] [facility] Hematology Oncology [address] [place] [address] 03/29/2024 12:[address] [place] [place] [address] Albino Bartholomew MD [facility] DR HEMATOLOGY [place] [address] 04/05/2024 10:00 AM EST Office Visit [place]ematology [place] [address] Albino Bartholomew MD [facility] DR HEMATOLOGY [place] [address] Scheduled Orders Name Type Priority Associated Diagnoses [...] * Bilirubin, Direct (04/15/2022 1:45 PM EST) Pathologist [facility] Bilirubin, Direct 0.1 0.0 - 0.3 mg/dL [facility] Blood 04/15/2022 1:45 PM EST 04/15/2022 1:49 PM EST Narrative Resulting Agency Comment Spec In Lab Ana Pringle MD CHEMISTRY ORDERABLES [facility] [place] [address] * Differential, Automated (04/15/2022 1:45 PM EST) Pathologist [facility] Neutrophil % 66.4 % [facility] Neutrophil Absolute 4.64 1.70 - 6.10 x10(3)/[facility] Lymph % 24.2 % [facility] Lymphocytes Abs 1.7 0.9 - 3.2 x10(3)/[facility] Monocyte % 4.0 % [facility] Monocyte Abs 0.3 0.3 - 0.9 x10(3)/[facility] Eos % 4.0 % [facility] Eosinophils Abs 0.3 0.0 - 0.4 x10(3)/[facility] Basophil % 1.3 % [facility] Baso Absolute 0.1 0.0 - 0.1 x10(3)/[facility] Immature Gran % 0.10 % [facility] Comment: Immature granulocytes(IG's)percentage and absolute count will include metamyelocytes, myelocytes, and promyelocytes. Blood smears from CBCs yielding IG's will be scanned manually for concordance. If this scan disagrees with the automated IG or if promyelocytes are noted, a manual differential will be performed. Immature Gran Absolute 0.01 0.00 - 0.04 x10(3)/[facility] Blood 04/15/2022 1:45 PM EST 04/15/2022 1:48 PM EST Narrative Resulting Agency Comment Spec In Lab Albino Bartholomew MD HEMATOLOGY ORDERABLE S Performing Organization Address City/State/[facility] Co de Phone Number [facility] [place] [address] * (ABNORMAL) Hemogram (04/15/2022 1:45 PM EST) White Blood Cell 7.0 4.0 - 9.5 x10(3)/mc L [facility] Red Blood Cell 4.88 4.58 - 5.54 x10(6)/mc L [facility] Hemoglobin 14.3 13.7 - 16.5 g/dL [facility] Hematocrit 41.2 40.5 - 48.5 % [facility] Mean Cell Volume 84.4 82.9 - 93.1 fL [facility] Mean Cell Hemoglobin 29.3 27.5 - 32.1 pg [facility] Mean Cell Hemoglobin Concentration 34.7 32.0 - 35.7 g/dL [facility] Platelet 182 145 - 357 x10(3)/mc L [facility] RDW Standard Deviation 47.4(H) 36.0 - 45.0 fL [facility] RDW coefficient of variation 15.8(H) 11.4 - 13.8 % [facility] Mean Platelet Volume 9.1 7.6 - 12.9 fL [facility] NRBC% auto 0.0 % [facility] NRBC Absolute 0.000 0.000 - 0.000 x10(3)/ L [facility] Blood 04/15/2022 1:45 PM EST 04/15/2022 1:48 PM EST Narrative Resulting Agency Comment Spec In Lab Albino Bartholomew MD HEMATOLOGY ORDERABLE S Performing Organization Address [facility] de Phone Number [facility] [place] [address] * (ABNORMAL) TSH (04/15/2022 1:45 PM EST) Thyroid Stimulating Hormone 13.90(H) 0.27 - 4.20 mcIU/mL [facility] Comment: Reference Interval (mcIU/mL): Females: ??First Trimester: 0.23-3.88 ??Second Trimester: 0.22-3.90 ??Third Trimester: 0.44-4.66 Blood 04/15/2022 1:45 PM EST 04/15/2022 1:49 PM EST Narrative Resulting Agency Comment Spec In Lab Albino Bartholomew MD CHEMISTRY ORDERABLES Performing Organization Address [facility] Co de Phone Number [facility] [place] [address] * T4, free (04/15/2022 1:45 PM EST) Free T4 1.10 0.93 - 1.70 ng/dL [facility] Comment: Reference Interval (ng/dL): Females: ??First Trimester: 0.97-1.68 ??Second Trimester: 0.77-1.51 ??Third Trimester: 0.77-1.49 Blood 04/15/2022 1:45 PM EST 04/15/2022 1:49 PM EST Narrative Resulting Agency Comment Spec In Lab Albino Bartholomew MD CHEMISTRY ORDERABLES Performing Organization Address [facility] Co de Phone Number [facility] [place] [address] * (ABNORMAL) Comprehensive metabolic panel (non-fasting) (04/15/2022 1:45 PM EST) Glucose 122 65 - 199 mg/dL [facility] Comment:Diabetes: >=200 mg/d L plus symptoms Blood Urea Nitrogen 30(H) 10 - 20 mg/dL [facility] Creatinine 1.77(H) 0.80 - 1.50 mg/dL [facility] Sodium 138 135 - 145 mmol/L [facility] Potassium 3.8 3.5 - 5.0 mmol/L [facility] Comment: Please note: ??Patients with WBC >100,000 may have falsely elevated Potassium levels. ??For accurate Potassium quantification in these patients send serum separator tube (gold top) for subsequent determinations. ??Contact the Clinical Chemistry Laboratory if there are any questions. Chloride 103 98 - 107 mmol/L [facility] Carbon Dioxide 25 22 - 31 mmol/L [facility] Anion Gap 10 5 - 15 mmol/L [facility] Calcium 9.0 8.5 - 10.5 mg/dL [facility] Protein, Total 7.0 6.1 - 8.0 g/dL [facility] Albumin 3.7 3.2 - 5.2 g/dL [facility] Aspartate Aminotransferase 50(H) 0 - 39 unit/L [facility] Alanine Aminotransferase 92(H) 0 - 55 unit/L [facility] Alkaline Phosphatase 155(H) 40 - 130 unit/L [facility] Bilirubin, Total 0.5 0.2 - 1.3 mg/dL [facility] Est Glomerular Filtration Rate 42(L) >=60 mL/min/1. 73 m?? [facility] Comment: This patient's estimated [...] In Lab Albino Bartholomew MD CHEMISTRY ORDERABLES [facility] [place] [address] documented in this encounter Visit Diagnoses Diagnosis Renal cell carcinoma, unspecified laterality Metastatic renal cell carcinoma to lung, unspecified laterality Abnormal thyroid function test Nonspecific abnormal results of thyroid function study Drug-induced liver injury Autoimmune hepatitis documented in this encounter Care Teams Surgical Lead Relationship Specialty Start Date End Date Juan Dempsey MD [address] [place] [address] PCP - General Emergency Medicine 08/20/21 documented as of this encounter
--- OUTSIDE RECORDS SUMMARY | 2024-03-09 10:17 | XMS_ITS | Encounter Summary ---
Author Organization [facility] Address [facility] [place] [address] Care Team Providers Care Molded Frames Assembler Name Role Phone Juan Dempsey MD Primary Care Provider [phone] Reason for Visit * Reason Comments Medication Refill Encounter Details Date Type Department Care Team (Late st Contact Info) Description 05/26/2022 Specialty [place] [phone] Sharda Lee, [facility] Social History Tobacco Use [...] Plan: Refill Specialty Pharmacy Consultation; Sharda Lee [facility] Comprehensive Medication Management (CMM) [...] ??? Peanut Medication Reconciliation Discrepancies (compared to [facility] med list) No Specialty Pharmacy Refill [...] AM EST Laboratory Appointment Lab at [facility] Hematology Oncology [address] [place] [address] 03/29/2024 12:[address] [place] [address] Albino Bartholomew MD [facility] DR [place] [address] 04/05/2024 10:00 AM EST Office Visit [place]ematology [place] [address] Albino Bartholomew MD [facility] DR [place] [address] documented as of this encounter Visit Diagnoses Not on filedocumented in this encounter Care Teams Molded Frames Assembler Relationship Specialty Start Date End Date Juan Dempsey MD [address] [place] [address] PCP - General Emergency Medicine 08/20/21 documented as of this encounter
--- OUTSIDE RECORDS SUMMARY | 2024-03-09 10:17 | XMS_ITS | Encounter Summary ---
Author Organization [facility] Address [facility] [place] [address] Care Team Providers Care Appraiser Auditor Name Role Phone Juan Dempsey MD Primary Care Provider [phone] Reason for Visit * Reason Onset Date Comments Results 04/01/2022 Encounter Details Date Type Department Care Team (Late st Contact Info) Description 04/01/2022 Telephone Hematology [place] [phone] Lamont Lewis V, [facility] Hematology/[place] [address] Results Social History Tobacco Use Types Packs/Day [...] * Telephone Encounter - Lamont Lewis V [facility] - 04/01/2022 11:28 AM EST This test result was discussed with the patient by phone. A copy of the test results have been scanned in the medical record and sent to Cristofer. A summary of the results is provided below. Please be advised that [place] law requires that all health care workers respect the confidentiality of this information and not pass it along to other health care providers, insurance companies, or individuals without the written permission of the patient. The Familial Cancer Program welcomes any questions about these matters. Our phone number is: [phone]. On 02/20/2022 Cristofer was seen for genetic counseling and subsequently underwent genetic testing for a hereditary predisposition to cancers in eight major organ systems including breast, gynecologic, gastrointestinal, endocrine, genitourinary, skin, brain/nervous system, sarcoma and hematologic. Following are the results of this test. Result: [facility]'s Multi-Cancer Panel showed no mutation was detected. This means that Cristofer does not carry a mutation in the genes detectable by this test. The following 84 genes were evaluated for sequence changes and exonic deletions/duplications: AIP, ALK, APC, ARUNA, AXIN2, BAP1, BARD1, BLM, BMPR1A, BRCA1, BRCA2, BRIP1, CASR, CDC73, CDH1, CDK4, CDKN1B, CDKN1C, CDKN2A (p14ARF), CDKN2A ([id number]), CEBPA,CHEK2, CTNNA1, DICER1, DIS3L2, EGFR, EPCAM (Deletion/duplication testing only), FH, FLCN, GATA2, GPC3, GREM1 (Promoter region deletion/duplication testing only), HOXB13, HRAS, KIT, MAX, MEN1, MET, MITF, (c.952G>A,P.Pya363Vyx variant only), MLH1, MSH2, MSH3, MSH6, MUTYH, NBN, NF1, NF2, NTHL1, PALB2, PDGFRA, PHOX2B, PMS2, POLD1, POLE, POT1, PGYNZ0D, PTCH1, PTEN, RAD50, RAD51C, RAD51D, RB1, RECQL4, RET, RUNX1, SDHA, SDHAF2, SDHB, SDHC, SDHD, SMAD4, SMARCA4, SMARCB1, SMARCE1, STK11, SUFU, TERC, TERT, UCEP820, TP53, TSC1, TSC2, VHL, WRN, and WT1. A variant of uncertain significance (VUS) was detected in the FLCN gene, specifically c.802C>T (p.Ose122Rag). Interpretation: This test did not identify an [...] the gene with no increased cancer risks. [employer] is continually collecting and analyzing their data, in an effort to reclassify these variants as either cancer-causing mutationsor benign changes. It is important to remember that a vast majority of variants of uncertain significance are normal, benign changes in the gene. Per ClinVar, this FLCN variant is also classified as a VUS by [employer] and [employer]. We will be contacted by the laboratory, in the future, if a reclassification is made and we would then notify Cristofer. It is important that Cristofer's phone number and mailing address stay updated in the [facility] system, in order for us to reach [...] Periodic colonoscopy screening as recommended by Cristofer's high school hvac r instructor, taking family history of colon cancer into account. Skin cancer screening ?? Skin cancer screening and sun protection are important for everyone, regardless of genetic predisposition. ?? Consideration of routine dermatologic/skin exams, as recommended by Cristofer's primary care provider or civil clerk. documented in this encounter Plan of Treatment Upcoming Encounters Date Type Department Care Team (Late st Contact Info) Description 03/29/2024 10:30 AM EST Laboratory Appointment Lab at [facility] Hematology Oncology [address] [place] [address] 03/29/2024 12:[address] [place] [address] Albino Bartholomew MD [facility] [place] [address] 04/05/2024 10:00 AM EST Office Visit Hematology [place] [address] Albino Bartholomew MD [facility] [address] [place] [address] documented as of this encounter Visit Diagnoses Not on filedocumented in this encounter Care Teams Appraiser Auditor Relationship Specialty Start Date End Date Juan Dempsey MD [address] [place] [address] PCP - General Emergency Medicine 08/20/21 documented as of this encounter
--- OUTSIDE RECORDS SUMMARY | 2024-03-09 10:17 | XMS_ITS | Encounter Summary ---
Author Organization [facility] Address [facility] [place] [address] Care Team Providers Care Plastics Fabrication Supervisor Name Role Phone Juan Dempsey MD Primary Care Provider [phone] Reason for Visit * Reason Comments Specialty Pharmacy Review Cabometyx 60mg tablet Encounter Details Date Type Department Care Team (Late st Contact Info) Description 04/15/2022 Specialty [place] [phone] Kelin Chong, [facility] Social History Tobacco Use Types [...] Chong - 04/15/2022 11:59 PM EST The [facility] has completed a benefits investigation for Cristofer Tenorio to review their eligibility to fill at [facility]. Per patient's medication list they are prescribedCabometyx 60mg tablet and the medication is able to be filled at the [facility]. The patient is currently filling the medication through Specialty Pharmacy with a $0 copay. PA approved until 2025 documented in this encounter Plan of Treatment Upcoming Encounters Date Type Department Care Team (Late st Contact Info) Description 03/29/2024 10:30 AM EST Laboratory Appointment Lab at [facility] Hematology Oncology [address] [place] [address] 03/29/2024 12:[address] [place] [address] Albino Bartholomew MD [facility] DR HEMATOLOGY [place] [address] 04/05/2024 10:00 AM EST Office Visit Hematology [place] [address] Albino Bartholomew MD [facility] DR HEMATOLOGY [place] [address] documented as of this encounter Visit Diagnoses Not on filedocumented in this encounter Care Teams Plastics Fabrication Supervisor Relationship Specialty Start Date End Date Juan Dempsey MD [address] [place] [address] PCP - General Emergency Medicine 08/20/21 documented as of this encounter
--- OUTSIDE RECORDS SUMMARY | 2024-03-09 10:17 | XMS_ITS | Encounter Summary ---
Author Organization [facility] Address [facility] [place] [address] Care Team Providers Care Senior Database Administrator Name Role Phone Juan Dempsey MD Primary Care Provider [phone] Encounter Details Date Type Department Care Team (Late st Contact Info) Description 03/18/2022 Orders [place] [address] Ana Pringle MD [facility] [place] [address] Drug-induced liver injury Social History Tobacco Use [...] [facility] Hematology Oncology [address] [place] [address] 03/29/2024 12:[address] [place] [address] Albino Bartholomew MD [facility] [place] [address] 04/05/2024 10:00 AM EST Office Visit Hematology [place] [address] Albino Bartholomew MD [facility] [place] [address] documented as of this encounter Visit Diagnoses Diagnosis Drug-induced liver injury documented in this encounter Care Teams Senior Database Administrator Relationship Specialty Start Date End Date Juan Dempsey MD [address] [place] [address] PCP - General Emergency Medicine 08/20/21 documented as of this encounter
--- OUTSIDE RECORDS SUMMARY | 2024-03-09 10:17 | XMS_ITS | Encounter Summary ---
Author Organization [facility] Address [facility] [place] [address] Care Team Providers Care Construction Equipment Mechanic Helper Name Role Phone Juan Dempsey MD Primary Care Provider [phone] Encounter Details Date Type Department Care Team [...] 10:30 AM EST Laboratory Appointment Lab at [facility] Hematology Oncology [address] [place] [address] 03/29/2024 12:[address] [place] [address] Albino Bartholomew MD [facility] [address] [place] [address] 04/05/2024 10:00 AM EST Office Visit Hematology [place] [address] Albino Bartholomew MD [facility] [address] [place] [address] documented as of this encounter Visit Diagnoses Not on filedocumented in this encounter Care Teams Construction Equipment Mechanic Helper Relationship Specialty Start Date End Date Juan Dempsey MD [address] [place] [address] PCP - General Emergency Medicine 08/20/21 documented as of this encounter
--- OUTSIDE RECORDS SUMMARY | 2024-03-09 10:17 | XMS_ITS | Encounter Summary ---
Author Organization [facility] Address [facility] [place] [address] Care Team Providers Care Professor Of Apologetics Name Role Phone Juan Dempsey MD Primary Care Provider [phone] Reason for Visit * Reason Comments Specialty Refill Management Cabometyx 60 mg tabs Encounter Details Date Type Department Care Team (Late st Contact Info) Description 03/19/2022 Specialty [place] [phone] Jonas Vásquez, [facility] Social History Tobacco Use Types Packs/Day Years [...] ??? Peanut Medication Reconciliation Discrepancies (compared to [facility] med list) No Specialty Pharmacy Refill [...] [facility] H[facility] Oncology [address] [place] [address] 03/29/2024 12:[address] [place] [address] Albino Bartholomew MD [facility] DR HEMATOLOGY [place] [address] 04/05/2024 10:00 AM EST Office Visit Hematology [place] [address] Albino Bartholomew MD [facility] DR HEMATOLOGY [place] [address] documented as of this encounter Visit Diagnoses Not on filedocumented in this encounter Care Teams Professor Of Apologetics Relationship Specialty Start Date End Date Juan Dempsey MD [address] [place] [address] PCP - General Emergency Medicine 08/20/21 documented as of this encounter
--- OUTSIDE RECORDS SUMMARY | 2024-03-09 10:17 | XMS_ITS | Encounter Summary ---
Author Organization [facility] Address [facility] [place] [address] Care Team Providers Care German Instructor Name Role Phone Juan Dempsey MD Primary Care Provider [phone] Encounter Details Date Type Department Care Team (Late st Contact Info) Description 04/29/2022 Orders Only Hematology [place] [address] Albino Bartholomew MD [facility] DR [place] [address] Social History Tobacco Use Types Packs/Day Years [...] [facility] Hematology Oncology [address] [place] [address] 03/29/2024 12:[address] [place] [address] Albino Bartholomew MD [facility] DR [place] [address] 04/05/2024 10:00 AM EST Office Visit Hematology [place] [address] Albino Bartholomew MD [facility] DR [place] [address] documented as of this encounter Visit Diagnoses Not on filedocumented in this encounter Care Teams German Instructor Relationship Specialty Start Date End Date Juan Dempsey MD [address] [place] [address] PCP - General Emergency Medicine 08/20/21 documented as of this encounter
--- OUTSIDE RECORDS SUMMARY | 2024-03-09 10:17 | XMS_ITS | Encounter Summary ---
Author Organization [facility] Address [facility] [place] [address] Care Team Providers Care New Business Clerk Name Role Phone Juan Dempsey MD Primary Care Provider [phone] Reason for Visit * Reason Comments Follow-up Encounter Details Date Type Department Care Team (Late st Contact Info) Description 04/15/2022 3:00 PM EST Office Visit [place]ology [place] [address] Albino Bartholomew MD [facility] DR [place] [address] Kyle Donohue PA [facility] [address] [place] [address] Metastatic renal cell carcinoma to lung, unspecified [...] Interval History: Cristofer is in clinic for follow up on [...] 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 Pt prefers to get labs at [facility]. We'll send orders and I'll ask our steamer operator to f/u on results. Advised pt [...] [facility] Hematology Oncology [address] [place] [address] 03/29/2024 12:[address] [place] [place] [address] Albino Bartholomew MD [facility] DR [place] [address] 04/05/2024 10:00 AM EST Office Visit [place]ology [place] [address] Albino Bartholomew MD [facility] [address] [place] [address] documented as of this encounter Visit Diagnoses Diagnosis Metastatic renal cell carcinoma to lung, unspecified laterality Abnormal thyroid function test Nonspecific abnormal results of thyroid function study Drug-induced liver injury High risk medication use Encounter for long-term (current) use of other medications documented in this encounter Care Teams New Business Clerk Relationship Specialty Start Date End Date Juan Dempsey MD [address] [place] [address] PCP - General Emergency Medicine 08/20/21 documented as of this encounter
--- OUTSIDE RECORDS SUMMARY | 2024-03-09 10:17 | XMS_ITS | Encounter Summary ---
Author Organization [facility] Address [facility] [place] [address] Care Team Providers Care Feeder Operator Name Role Phone Juan Dempsey MD Primary Care Provider [phone] Encounter Details Date Type Department Care Team [...] AM EST Laboratory Appointment Lab at [facility] Hematology Oncology [address] [place] [address] 03/29/2024 12:[address] [place] [place] [address] Albino Bartholomew MD [facility] DR HEMATOLOGY [place] [address] 04/05/2024 10:00 AM EST Office Visit [place]ology [place] [address] Albino Bartholomew MD [facility] DR HEMATOLOGY [place] [address] documented as of this encounter Visit Diagnoses Not on filedocumented in this encounter Care Teams Feeder Operator Relationship Specialty Start Date End Date Juan Dempsey MD [address] [place] [address] PCP - General Emergency Medicine 08/20/21 documented as of this encounter
--- OUTSIDE RECORDS SUMMARY | 2024-03-09 10:17 | XMS_ITS | Encounter Summary ---
Author Organization [facility] Address [facility] [place] [address] Care Team Providers Care Assistant Unit Forester Name Role Phone Juan Dempsey MD Primary Care Provider [phone] Reason for Referral * Diagnostic Test (Routine) - Closed Specialty Diagnoses / Procedures Referred By Contac t Referred To Contact Radiology Diagnoses Metastatic renal cell carcinoma to lung, unspecified laterality Procedures CT Chest Abdomen Pelvis w Contrast (Generic) Albino Bartholomew MD [facility] DR HEMATOLOGY [place] [address] [facility] [place] [address] Referral ID Status Reason Start Date Expiration Date V isits Requested Visits Authorized [id number] Closed Specialty Service Requested 05/20/2022 11/18/2023 1 1 Reason for Visit * Reason Comments Follow-up Encounter Details Date Type Department Care Team (Late st Contact Info) Description 05/20/2022 9:30 AM EST Office Visit Hematology [place] [address] [address] [facility] DR HEMATOLOGY [place] [address] [facility] HEMATOLOGY/[place] [address] 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 10/20/21 CXR ([facility]): 10/16/21: IMPRESSION 1. Unexpected finding: New [...] prefers to get labs at [facility]. We'll send orders and I'll ask our rug designer to f/u on results. Advised pt to [...] and CMP in 2 weeks locally at [facility] Next visit in 5 weeks with CBC, CMP, TSH, free T4 - CT C/A/P in 5 weeks - f/u genetic test Mr. Tenorio asked appropriate questions and verbalized good understanding of and agreement with the plan. I encouraged him to call anytime with questions or concerns and he agreed. Case seen and discussed with Dr. [place] Mcnair MD Hematology/Oncology Fellow [facility] * Albino Bartholomew MD - 05/20/2022 9:30 [...] abdomen pelvis Albino Bartholomew MD Hematology/Oncology Section, [facility] Director Child Abuse Therapyleather sorter, [facility] [phone] documented in this encounter Plan of Treatment Upcoming Encounters Date Type Department Care Team (Late st Contact Info) Description 03/29/2024 10:30 AM EST Laboratory Appointment Lab at [facility] Hematology Oncology [address] [place] [address] 03/29/2024 12:[address] [place] [address] [facility] DR HEMATOLOGY [place] [address] 04/05/2024 10:00 AM EST Office Visit Hematology [place] [address] [facility] DR [place]EMATOLOGY [place] [address] Scheduled Orders Name Type Priority Associated Diagnoses [...] who have questions please contact the health critical care nurse that requested your imaging first. ? Electronically signed by: Tima Zacarias MD, [facility] ([phone]), at 06/26/2022 3:18 PM Narrative 06/26/2022 3:18 [...] laterality documented in this encounter Care Teams Assistant Unit Forester Relationship Specialty Start Date End Date Juan Dempsey MD [address] [place] [address] PCP - General Emergency Medicine 08/20/21 documented as of this encounter
--- OUTSIDE RECORDS SUMMARY | 2024-03-09 10:17 | XMS_ITS | Encounter Summary ---
Author Organization [facility] Address [facility] [place] [address] Care Team Providers Care Ict Project Manager Name Role Phone Juan Dempsey MD Primary Care Provider [phone] Encounter Details Date Type Department Care Team (Late st Contact Info) Description 04/30/2022 External Results [place] [address] Ana Pringle MD [facility] [place] [address] Social History Tobacco Use Types Packs/Day Years [...] [facility] On[facility] [address] [place] [address] 03/29/2024 12:[address] [place] [address] Albino Bartholomew MD [facility] DR HEMATOLOGY [place] [address] 04/05/2024 10:00 AM EST Office Visit Hematology [place] [address] Albino Bartholomew MD [facility] DR HEMATOLOGY [place] [address] documented as of this encounter Procedures Procedure [...] on filedocumented in this encounter Care Teams Ict Project Manager Relationship Specialty Start Date End Date Juan Dempsey MD [address] [place] [address] PCP - General Emergency Medicine 08/20/21 documented as of this encounter
--- OUTSIDE RECORDS SUMMARY | 2024-03-09 10:17 | XMS_ITS | Encounter Summary ---
Author Organization [facility] Address [facility] [place] [address] Care Team Providers Care Dairy Products Maker Name Role Phone Juan Dempsey MD Primary Care Provider [phone] Encounter Details Date Type Department Care Team (Late st Contact Info) Description 04/23/2022 [place] [address] Ana Pringle MD [facility] [place] [address] Social History Tobacco Use Types Packs/Day Years [...] 10:30 AM EST Laboratory Appointment Lab at [facility] Hematology Oncology [address] [place] [address] 03/29/2024 12:[address] [place] [place] [address] Albino Bartholomew MD [facility] DR [place] [address] 04/05/2024 10:00 AM EST Office Visit [place]ematology [place] [address] Albino Bartholomew MD [facility] DR [place] [address] documented as of this encounter Visit Diagnoses Not on filedocumented in this encounter Care Teams Dairy Products Maker Relationship Specialty Start Date End Date Juan Dempsey MD [address] [place] [address] PCP - General Emergency Medicine 08/20/21 documented as of this encounter
--- OUTSIDE RECORDS SUMMARY | 2024-03-09 10:17 | XMS_ITS | Encounter Summary ---
Author Organization [facility] Address [facility] [place] [address] Care Team Providers Care Active Directory Specialist Name Role Phone Juan Dempsey MD Primary Care Provider [phone] Reason for Visit * Reason Comments Specialty Pharmacy Review Specialty Refill Management Encounter Details Date Type Department Care Team (Late st Contact Info) Description 03/19/2022 Specialty [place] [phone] Reshma Gar, [facility] Social History Tobacco Use Types Packs/Day [...] this encounter Progress Notes * Reshma Gar, [facility] - 03/19/2022 8:30 AM EST Comprehensive Medication [...] after food Medication Reconciliation Discrepancies (compared to [facility] med list) yes - Cristofer reported [...] History Administered Date(s) Administered ??? Moderna Covid-19 (Mri Tech 100mcg) Vaccine 07/03/2020, 07/31/2020, 02/24/2021 ??? Zoster, Recombinant 03/16/2019 Assessment and Recommendations: Patient Counseling Patient informed of specialty services: Yes Patient accepted offer to licensed mental health counselor: select all, adherence/missed doses, cost of [...] preventative care discussed, reminder to refill or supervisor opening and picking medication discussed, self-monitoring discussed, start medication discussed, [...] Social Assessment: Does patient have a primary rn palliative care: No Does patient have an emergency contact on file: Yes Does patient need referral to drug abuse social worker: No Does patient need referral [...] were made at the appointment and that [facility] is[facility]iding recommendations (summary located at top of note) for provider review and follow up. Reshma Gar RPH 03/19/22 9:18 AM documented in this encounter Plan of Treatment Upcoming Encounters Date Type Department Care Team (Late st Contact Info) Description 03/29/2024 10:30 AM EST Laboratory Appointment Lab at [facility] Hematology Oncology [address] [place] [address] 03/29/2024 12:[address] [place] [address] Albino Bartholomew MD [facility] [address] [place] [address] 04/05/2024 10:00 AM EST Office Visit Hematology [place] [address] Albino Bartholomew MD [facility] [address] [place] [address] documented as of this encounter Visit Diagnoses Not on filedocumented in this encounter Care Teams Active Directory Specialist Relationship Specialty Start Date End Date Juan Dempsey MD [address] [place] [address] PCP - General Emergency Medicine 08/20/21 documented as of this encounter
--- OUTSIDE RECORDS SUMMARY | 2024-03-09 10:17 | XMS_ITS | Encounter Summary ---
Author Organization [facility] Address [facility] [place] [address] Care Team Providers Care Inflated Ball Molder Name Role Phone Juan Dempsey MD Primary Care Provider [phone] Encounter Details Date Type Department Care Team (Late st Contact Info) Description 05/11/2022 Telephone [place] [address] Tamiko Clark Social History Tobacco [...] [facility] Hematology Oncology [address] [place] [address] 03/29/2024 12:[address] [place] [place] [address] Albino Bartholomew MD [facility] [address] HEMATOLOGY [place] [address] 04/05/2024 10:00 AM EST Office Visit [place]ematology [place] [address] Albino Bartholomew MD [facility] [address] HEMATOLOGY [place] [address] documented as of this encounter Visit Diagnoses Not on filedocumented in this encounter Care Teams Inflated Ball Molder Relationship Specialty Start Date End Date Juan Dempsey MD [address] [place] [address] PCP - General Emergency Medicine 08/20/21 documented as of this encounter
--- OUTSIDE RECORDS SUMMARY | 2024-03-09 10:17 | XMS_ITS | Encounter Summary ---
Author Organization [facility] Address [facility] [place] [address] Care Team Providers Care Supervisor Cell Efficiency Name Role Phone Juan Dempsey MD Primary Care Provider [phone] Encounter Details Date Type Department Care Team [...] [facility] Hematology Oncology [address] [place] [address] 03/29/2024 12:[address] [place] [address] [facility] [address] [place] [address] 04/05/2024 10:00 AM EST Office Visit Hematology [place] [address] [facility] [address] [place] [address] documented as of this encounter Visit Diagnoses Not on filedocumented in this encounter Care Teams Supervisor Cell Efficiency Relationship Specialty Start Date End Date Juan Dmepsey MD [address] [place] [address] PCP - General Emergency Medicine 08/20/21 documented as of this encounter
--- OUTSIDE RECORDS SUMMARY | 2024-03-09 10:17 | XMS_ITS | Encounter Summary ---
Author Organization [facility] Address [facility] [place] [address] Care Team Providers Care Nurse Aide Evaluator Name Role Phone Juan Dempsey MD Primary Care Provider [phone] Reason for Visit * Reason Onset Date Comments Medication Refill 04/30/2022 Encounter Details Date Type Department Care Team (Late st Contact Info) Description 04/30/2022 Refill Hematology [place] [phone] Rose Mary Abarca, CARE SUPPORT REPRESENTATIVE ROOM Social History Tobacco Use Types Packs/Day [...] [facility] Hematology Oncology [address] [place] [address] 03/29/2024 12:[address] [place] [address] Albino Bartholomew MD [facility] [place] [address] 04/05/2024 10:00 AM EST Office Visit Hematology [place] [address] Albino Bartholomew MD [facility] DR [place] [address] documented as of this encounter Visit Diagnoses Not on filedocumented in this encounter Care Teams Nurse Aide Evaluator Relationship Specialty Start Date End Date Juan Dempsey MD [address] [place] [address] PCP - General Emergency Medicine 08/20/21 documented as of this encounter
--- OUTSIDE RECORDS SUMMARY | 2024-03-09 10:17 | XMS_ITS | Encounter Summary ---
Author Organization [facility] Address [facility] [place] [address] Care Team Providers Care Rocket Assembly Operator Name Role Phone Juan Dempsey MD Primary Care Provider [phone] Encounter Details Date Type Department Care Team (Late st Contact Info) Description 04/23/2022 Telephone Hematology [place] [address] Daxa Arriola RN Social History [...] 11:43 AM EST Message received from clinical school secretary: [phone] Reports that he has some new thrush medication, wants to make sure it is ok to take with his other meds Message sent to pt via MyFrontSteps; Per Albino Bartholomew MD. Clotrimazole lozenges are okay. Hold Cabometyx for a few days if diarrhea is getting worse. Messages exchanged via [employer]. documented in this encounter Plan of Treatment Upcoming Encounters Date Type Department Care Team (Late st Contact Info) Description 03/29/2024 10:30 AM EST Laboratory Appointment Lab at [facility] Hematology Oncology [address] [place] [address] 03/29/2024 12:[address] [place] [place] [address] Albino Bartholomew MD [facility] [place] [address] 04/05/2024 10:00 AM EST Office Visit Hematology [place] [address] Albino Bartholomew MD [facility] [address] [place] [address] documented as of this encounter Visit Diagnoses Not on filedocumented in this encounter Care Teams Rocket Assembly Operator Relationship Specialty Start Date End Date Juan Dempsey MD [address] [place] [address] PCP - General Emergency Medicine 08/20/21 documented as of this encounter
--- OUTSIDE RECORDS SUMMARY | 2024-03-09 10:17 | XMS_ITS | Encounter Summary ---
Author Organization [facility] Address [facility] [place] [address] Care Team Providers Care Hot Blast Worker Name Role Phone Juan Dempsey MD Primary Care Provider [phone] Reason for Visit * Reason Comments Specialty Refill Management Encounter Details Date Type Department Care Team (Late st Contact Info) Description 04/30/2022 Specialty [place] [phone] Reshma Gar, [facility] Social History Tobacco Use Types Packs/Day [...] this encounter Progress Notes * Reshma Gar [facility] - 04/30/2022 10:26 AM EST Clinical Management Plan: Refill Specialty Pharmacy Consultation; Reshma Gar [facility] Comprehensive Medication Management (CMM) Cristofer Tenorio is [...] beneficiary Provider: plan sponsor pharmacist [facility] Follow-up Time Spent: 1-15 min Method of Contact: by telephone Cognitive Ability: good Allergies and Drug intolerance: Allergies Allergen Reactions ??? Grass Pollen-Orchardgrass, Standard ??? Peanut Medication Reconciliation Discrepancies (compared to [facility] med list) -n/a Specialty Pharmacy Refill Questionnaire [...] at the appointment and that [facility] is providing recommendations (summary located at top of note) for provider review and follow up. Reshma Gar RPH 04/30/22 10:31 AM documented in this encounter Plan of Treatment Upcoming Encounters Date Type Department Care Team (Late st Contact Info) Description 03/29/2024 10:30 AM EST Laboratory Appointment Lab at [facility] Hematology Oncology [address] [place] [address] 03/29/2024 12:[address] [place] [address] Albino Bartholomew MD [facility] [place] [address] 04/05/2024 10:00 AM EST Office Visit Hematology [place] [address] Albino Bartholomew MD [facility] [address] [place] [address] documented as of this encounter Visit Diagnoses Not on filedocumented in this encounter Care Teams Hot Blast Worker Relationship Specialty Start Date End Date Juan Dempsey MD [address] [place] [address] PCP - General Emergency Medicine 08/20/21 documented as of this encounter
--- OUTSIDE RECORDS SUMMARY | 2024-03-09 10:17 | XMS_ITS | Encounter Summary ---
Author Organization [facility] Address [facility] [place] [address] Care Team Providers Care Manager Heart Failure Name Role Phone Juan Dempsey MD Primary Care Provider [phone] Encounter Details Date Type Department Care Team (Late st Contact Info) Description 04/04/2022 Orders Only Hematology [place] [phone] Albino Bartholomew MD [facility] [address] [place] [address] Social History Tobacco Use Types Packs/Day Years [...] [facility] Hematology Oncology [address] [place] [address] 03/29/2024 12:[address] [place] [place] [address] Albino Bartholomew MD [facility] [address] [place] [address] 04/05/2024 10:00 AM EST Office Visit [place]ematology [place] [address] Albino Bartholomew MD [facility] [address] [place] [address] documented as of this encounter Visit Diagnoses Not on filedocumented in this encounter Care Teams Manager Heart Failure Relationship Specialty Start Date End Date Juan Dempsey MD [address] [place] [address] PCP - General Emergency Medicine 08/20/21 documented as of this encounter
--- OUTSIDE RECORDS SUMMARY | 2024-03-09 10:17 | XMS_ITS | Encounter Summary ---
Author Organization [facility] Address [facility] [place] [address] Care Team Providers Care Lance Crewmember/Mlrs Sergeant Name Role Phone Juan Dempsey MD Primary Care Provider [phone] Encounter Details Date Type Department Care Team [...] [facility] H[facility] Oncology [address] [place] [address] 03/29/2024 12:[address] [place] [place] [address] [facility] [address] HEMATOLOGY [place] [address] 04/05/2024 10:00 AM EST Office Visit [place]ology [place] [address] [facility] [address] HEMATOLOGY [place] [address] documented as of this encounter Visit Diagnoses Not on filedocumented in this encounter Care Teams Lance Crewmember/Mlrs Sergeant Relationship Specialty Start Date End Date Juan Dempsey MD [address] [place] [address] PCP - General Emergency Medicine 08/20/21 documented as of this encounter
--- OUTSIDE RECORDS SUMMARY | 2024-03-09 10:17 | XMS_ITS | Encounter Summary ---
Author Organization [facility] [place] [address] Care Team Providers Care Certified Professional Ergonomist Name Role Phone Juan Dempsey MD Primary Care Provider [phone] Encounter Details Date Type Department Care Team (Latest Contact Info) Description 03/18/2022 11:26 AM EST - 03/18/2022 11:59 PM [facility] Encounter Hematology [place] [phone] Metastatic renal cell carcinoma to lung, unspecified [...] 10:30 AM EST Laboratory Appointment Lab at [facility] Hematology Oncology [address] [place] [address] 03/29/2024 12:[address] [place] [address] Albino Bartholomew MD [facility] DR [place] [address] 04/05/2024 10:00 AM EST Office Visit Hematology [place] [address] Albino Bartholomew MD [facility] DR [place] [address] Scheduled Orders Name Type Priority Associated Diagnoses [...] * Bilirubin, Direct (03/18/2022 11:44 AM EST) Pathologist [facility] Bilirubin, Direct 0.1 0.0 - 0.3 mg/dL [facility] Blood 03/18/2022 11:4 4 AM EST 03/18/2022 11:59 AM EST Narrative Resulting Agency Comment Spec In Lab Ana Pringle MD CHEMISTRY ORDERABLES [facility] [place] [address] * (ABNORMAL) Differential, Automated (03/18/2022 11:44 AM EST) Pathologist [facility] Neutrophil % 77.6 % [facility] Neutrophil Absolute 9.16(H) 1.70 - 6.10 x10(3)/mc L [facility] Lymph % 14.4 % [facility] Lymphocytes Abs 1.7 0.9 - 3.2 x10(3)/mc L [facility] Monocyte % 4.7 % [facility] Monocyte Abs 0.6 0.3 - 0.9 x10(3)/mc L [facility] Eos % 1.9 % [facility] Eosinophils Abs 0.2 0.0 - 0.4 x10(3)/[facility] Basophil % 1.1 % [facility] Baso Absolute 0.1 0.0 - 0.1 x10(3)/[facility] Immature Gran % 0.30 % [facility] Comment: Immature granulocytes(IG's)percentage and absolute count will include metamyelocytes, myelocytes, and promyelocytes. Blood smears from CBCs yielding IG's will be scanned manually for concordance. If this scan disagrees with the automated IG or if promyelocytes are noted, a manual differential will be performed. Immature Gran Absolute 0.03 0.00 - 0.04 x10(3)/[facility] Blood 03/18/2022 11:4 4 AM EST 03/18/2022 11:59 AM EST Narrative Resulting Agency Comment Spec In Lab Albino Bartholomew MD HEMATOLOGY ORDERABLE S [facility] [place] [address] * (ABNORMAL) Hemogram (03/18/2022 11:44 AM EST) White Blood Cell 11.8(H) 4.0 - 9.5 x10(3)/[facility] Red Blood Cell 5.26 4.58 - 5.54 x10(6)/[facility] Hemoglobin 15.1 13.7 - 16.5 g/dL [facility] Hematocrit 44.2 40.5 - 48.5 % [facility] Mean Cell Volume 84.0 82.9 - 93.1 fL [facility] Mean Cell Hemoglobin 28.7 27.5 - 32.1 pg [facility] Mean Cell Hemoglobin Concentration 34.2 32.0 - 35.7 g/dL [facility] Platelet 203 145 - 357 x10(3)/mc L [facility] RDW Standard Deviation 43.1 36.0 - 45.0 fL [facility] RDW coefficient of variation 14.3(H) 11.4 - 13.8 % [facility] Mean Platelet Volume 9.1 7.6 - 12.9 fL [facility] NRBC% auto 0.0 % [facility] NRBC Absolute 0.000 0.000 - 0.000 x10(3)/mc L [facility] Blood 03/18/2022 11:4 4 AM EST 03/18/2022 11:59 AM EST Narrative Resulting Agency Comment Spec In Lab Albino Bartholomew MD HEMATOLOGY ORDERABLE S Performing Organization Address [facility] Co de Phone Number [facility] [place] [address] * Research Venipuncture (03/18/2022 11:44 AM EST) Research Venipuncture Drawn [facility] Blood 03/18/2022 11:4 4 AM EST 03/18/2022 11:59 AM EST Narrative Resulting Agency Comment Spec In Lab Odell Ruiz MD CHEMISTRY ORDERABLES Performing Organization Address [facility] Co de Phone Number [facility] [place] [address] * (ABNORMAL) Comprehensive metabolic panel (non-fasting) (03/18/2022 11:44 AM EST) [facility] Signature Glucose 112 65 - 199 mg/dL [facility] Comment:Diabetes: >=200 mg/d L plus symptoms Blood Urea Nitrogen 19 10 - 20 mg/dL [facility] Creatinine 1.46 0.80 - 1.50 mg/dL [facility] Sodium 143 135 - 145 mmol/L [facility] Potassium 3.5 3.5 - 5.0 mmol/L [facility] Comment: Please note: ??Patients with WBC >100,000 may have falsely elevated Potassium levels. ??For accurate Potassium quantification in these patients send serum separator tube (gold top) for subsequent determinations. ??Contact the Clinical Chemistry Laboratory if there are any questions. Chloride 104 98 - 107 mmol/L [facility] Carbon Dioxide 32(H) 22 - 31 mmol/L [facility] Anion Gap 7 5 - 15 mmol/L [facility] Calcium 9.4 8.5 - 10.5 mg/dL [facility] Protein, Total 6.9 6.1 - 8.0 g/dL [facility] Albumin 4.0 3.2 - 5.2 g/dL [facility] Aspartate Aminotransferase 29 0 - 39 unit/L [facility] Alanine Aminotransferase 60(H) 0 - 55 unit/L [facility] Alkaline Phosphatase 130 40 - 130 unit/L [facility] Bilirubin, Total 0.3 0.2 - 1.3 mg/dL [facility] Est Glomerular Filtration Rate 52(L) >=60 mL/min/1. 73 m?? [facility] Comment: This patient's estimated [...] In Lab Albino Bartholomew MD CHEMISTRY ORDERABLES [facility] [place] [address] * (ABNORMAL) TSH (03/18/2022 11:44 AM EST) Thyroid Stimulating Hormone 6.08(H) 0.27 - 4.20 mcIU/mL [facility] Comment: Reference Interval (mcIU/mL): Females: ??First Trimester: 0.23-3.88 ??Second Trimester: 0.22-3.90 ??Third Trimester: 0.44-4.66 Blood 03/18/2022 11:4 4 AM EST 03/18/2022 11:59 AM EST Narrative Resulting Agency Comment Spec In Lab Albino Bartholomew MD CHEMISTRY ORDERABLES Performing Organization Address [facility] Co de Phone Number [facility] [place] [address] * T4, free (03/18/2022 11:44 AM EST) Free T4 1.38 0.93 - 1.70 ng/dL [facility] Comment: Reference Interval (ng/dL): Females: ??First Trimester: 0.97-1.68 ??Second Trimester: 0.77-1.51 ??Third Trimester: 0.77-1.49 Blood 03/18/2022 11:4 4 AM EST 03/18/2022 11:59 AM EST Narrative Resulting Agency Comment Spec In Lab Albino Bartholomew MD CHEMISTRY ORDERABLES Performing Organization Address [facility] Co de Phone Number [facility] [place] [address] documented in this encounter Visit Diagnoses Diagnosis [...] breast documented in this encounter Care Teams Certified Professional Ergonomist Relationship Specialty Start Date End Date Dege, Juan E, MD [address] [place] [address] PCP - General Emergency Medicine 08/20/21 documented as of this encounter
--- OUTSIDE RECORDS SUMMARY | 2024-03-09 10:17 | XMS_ITS | Encounter Summary ---
Author Organization [facility] Address [facility] [place] [address] Care Team Providers Care Roping Machine Tender Name Role Phone Juan Dempsey MD Primary Care Provider [phone] Encounter Details Date Type Department Care Team (Late st Contact Info) Description 06/18/2022 Abstract [place] [address] Ana Pringle MD [facility] [place] [address] Social History Tobacco Use Types Packs/Day Years [...] [facility] [place] On[place] [address] [place] [address] 03/29/2024 12:[address] [place] [address] Albino Bartholomew MD [facility] DR HEMATOLOGY [place] [address] 04/05/2024 10:00 AM EST Office Visit Hematology [place] [address] Albino Bartholomew MD [facility] DR HEMATOLOGY [place] [address] documented as of this encounter Visit Diagnoses Not on filedocumented in this encounter Care Teams Roping Machine Tender Relationship Specialty Start Date End Date Juan Dempsey MD [address] [place] [address] PCP - General Emergency Medicine 08/20/21 documented as of this encounter
--- OUTSIDE RECORDS SUMMARY | 2024-03-09 10:17 | XMS_ITS | Encounter Summary ---
Author Organization [facility] Address [facility] [place] [address] Care Team Providers Care Wafer Slicer Name Role Phone Juan Dempsey MD Primary Care Provider Encounter Details Date Type Department Care Team (Late st Contact Info) Description 04/21/2022 Orders [place] [address] Ana Pringle MD [facility] [place] [address] Drug-induced liver injury Social History Tobacco Use [...] [facility] Hematology Oncology [address] [place] [address] 03/29/2024 12:[address] [place] [phone] Albino Bartholomew MD [facility] DR HEMATOLOGY [place] [address] 04/05/2024 10:00 AM EST Office Visit Hematology [place] [address] Albino Bartholomew MD [facility] DR HEMATOLOGY [place] [address] documented as of this encounter Visit Diagnoses Diagnosis Drug-induced liver injury documented in this encounter Care Teams Wafer Slicer Relationship Specialty Start Date End Date Juan Dempsey MD [address] [place] [address] PCP - General Emergency Medicine 08/20/21 documented as of this encounter
--- OUTSIDE RECORDS SUMMARY | 2024-03-09 10:17 | XMS_ITS | Encounter Summary ---
Author Organization [facility] Address [facility] [place] [address] Care Team Providers Care Forging Engineer Name Role Phone Juan Dempsey MD Primary Care Provider [phone] Encounter Details Date Type Department Care Team (Late st Contact Info) Description 04/02/2022 Telephone Hematology [place] [address] Daxa Arriola RN Social History [...] Nursing: check CMP for liver enzymes at [facility] in 2 weeks Next visit in [...] Albino ?? Message sent to pt via [facility]. Gilson Tobar RN to follow-up on 04/07. documented in this encounter Plan of Treatment Upcoming Encounters Date Type Department Care Team (Late st Contact Info) Description 03/29/2024 10:30 AM EST Laboratory Appointment Lab at [facility] Hematology Oncology [address] [place] [address] 03/29/2024 12:[address] [place] [place] [address] Albino Bartholomew MD [facility] DR HEMATOLOGY [place] [address] 04/05/2024 10:00 AM EST Office Visit [place]ematology [place] [address] Albino Bartholomew MD [facility] HEMATOLOGY [place] [address] documented as of this encounter Procedures Procedure Name Priority Date/Time Associated Diagnosis Comments CBC (WITH DIFF) Routine 04/01/2022 2:14 PM EST COMPREHENSIVE METABOLIC PANEL Routine 04/01/2022 2:14 PM EST documented in this encounter Results * (ABNORMAL) CBC (with Diff) (04/01/2022 2:14 PM EST) Pathologist [facility] White Blood Cell 10.39 4.4 - 10.8 [facility] Red Blood Cell 5.25 4.36 - 5.78 [facility] Hemoglobin 15.1 13.5 - 17.5 [facility] Hematocrit 44.4 40.0 - 50.0 [facility] Platelet 199 130 - 400 MANOJ ZEPEDA [facility] Neutrophil Absolute (ANC) - Automated 7.43(A) 1.2 - 6.7 [facility] Blood 04/01/2022 2:14 PM EST Historical Provider HEMATOLOGY PRANAV STRATTON [facility] [address] [phone] * (ABNORMAL) Comprehensive metabolic panel (non-fasting) (04/01/2022 2:14 PM EST) Pathologist [facility] Glucose 122(H) 74 - 106 MANOJ ZEPEDA [facility] Blood Urea Nitrogen 25(H) 7 - 18 [facility] Creatinine 1. 8(H) 0.70 - 1.30 [facility] Sodium 135(L) 136 - 145 [facility] Potassium 3.1(L) 3.5 - 5.1 [facility] Chloride 98 98 - 107 MANOJ RN [facility] Carbon Dioxide 32 21 - 32 [facility] Calcium 8.8 8.5 - 10.1 [facility] Protein, Total 7.7 6.4 - 8.2 [facility] Albumin 3.5 3.4 - 5.0 [facility] Bilirubin, Total 0.6 0.2 - 1.0 [facility] Alkaline Phosphatase 162(H) 46 - 116 [facility] Aspartate Aminotransferase 36 15 - 37 [facility] Alanine Aminotransferase 68(H) 16 - 63 [facility] Blood 04/01/2022 2:14 PM EST Historical Provider MD CHEMISTRY ORDERAB LES [facility] [address] [place] [address] [address] [phone] documented in this encounter Visit Diagnoses Not on filedocumented in this encounter Care Teams Forging Engineer Relationship Specialty Start Date End Date Juan Dempsey MD [address] [place] [address] PCP - General Emergency Medicine 08/20/21 documented as of this encounter
--- OUTSIDE RECORDS SUMMARY | 2024-03-09 10:17 | XMS_ITS | Encounter Summary ---
Author Organization [facility] Address [facility] [place] [address] Care Team Providers Care Director Community Health Nursing Name Role Phone Juan Dempsey MD Primary Care Provider [phone] Reason for Visit * Reason Comments Follow-up Encounter Details Date Type Department Care Team (Late st Contact Info) Description 03/18/2022 1:00 PM EST Office Visit Hematology [place] [address] Albino Bartholomew MD [facility] DR [place] [address] Zeke Brar MD [facility] HEMATOLOGY/[place] [address] Kyle Donohue PA [facility] [address] [place] [address] Metastatic renal cell carcinoma to lung, unspecified [...] Cristofer is in clinic for f/u on kidney [...] step daughter as well 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 10/20/21 CXR ([facility]): 10/16/21: IMPRESSION 1. Unexpected finding: New [...] taper. Pt prefers to get labs at [facility]. We'll send orders and I'll ask our cooler conveyor loader to f/u on results. Advised pt to [...] discussion with Dr. Bartholomew who consulted w/Dr. Mernio/Hepatology, we recommend switching from prednisone to budesonide [...] and discussed with Dr. [place] Brar MD [facility] Hematology Oncology Fellow Page [phone] * Albino Bartholomew MD - 03/18/2022 1:00 PM EST Oncology Attending Addendum I personally reviewed the history, examined the patient, reviewed relevant labs and viewed recent radiographic images. I directly participated in management decisions. My exam and assessment concur with . Please refer to his comprehensive note for details. Cristofer started coabometyx 02/26/22. Held it for 5 [...] blood work Albino Bartholomew MD Hematology/Oncology Section, [facility] Child Life Specialistyouth nutritional monitor, [employer] [facility] [employer] [phone] documented in this encounter Plan of Treatment Upcoming Encounters Date Type Department Care Team (Late st Contact Info) Description 03/29/2024 10:30 AM EST Laboratory Appointment Lab at [facility] Hematology Oncology [address] [place] [address] 03/29/2024 12:[address] [place] [address] Albino Bartholomew MD [facility] [address] [place] [address] 04/05/2024 10:00 AM EST Office Visit Hematology [place] [address] Albino Bartholomew MD [facility] [address] [place] [address] documented as of this encounter Visit Diagnoses Diagnosis Metastatic renal cell carcinoma to lung, unspecified laterality documented in this encounter Care Teams Director Community Health Nursing Relationship Specialty Start Date End Date Juan Dempsey MD [address] [place] [address] PCP - General Emergency Medicine 08/20/21 documented as of this encounter
--- OUTSIDE RECORDS SUMMARY | 2024-03-09 10:18 | XMS_ITS | Encounter Summary ---
Author Organization [facility] [address] Care Team Providers Care Coal Cutter Name Role Phone Juan Dempsey MD Primary Care Provider [phone] Reason for Referral * Diagnostic Test (Routine) - Closed Specialty Diagnoses / Procedures Referred By Contac t Referred To Contact Radiology Diagnoses Renal cell carcinoma, unspecified laterality Procedures MRI Abdomen wwo Contrast (Generic) Albino Bartholomew MD [facility] DR HEMATOLOGY [place] [address] [place] [address] Referral ID Status Reason Start Date Expiration Date V isits Requested Visits Authorized [id number] Closed Specialty Service Requested 01/16/2022 07/17/2023 1 1 Reason for Visit * Diagnostic Test (Routine) - Closed Specialty Diagnoses / Procedures Referred By Contac t Referred To Contact Radiology Diagnoses Renal cell carcinoma, unspecified laterality Procedures MRI Abdomen wwo Contrast (Generic) Albino Bartholomew MD [facility] HEMATOLOGY [place] [address] [place] [address] Referral ID Status Reason Start Date Expiration Date V isits Requested Visits Authorized [id number] Closed Specialty Service Requested 01/16/2022 07/17/2023 1 1 Encounter Details Date Type Department Care Team (Latest Contact Info) Description 02/06/2022 5:26 PM EDT - 02/06/2022 11:59 PM EDT Hospital Encounter MRI at [facility] [place] [address] Albino Bartholomew MD [facility] HEMATOLOGY [place] [address] Renal cell carcinoma, unspecified laterality [...] [facility] Hematology Oncology [address] [place] [address] 03/29/2024 12:[address] [place] [place] [address] Albino Bartholomew MD [facility] DR HEMATOLOGY [place] [address] 04/05/2024 10:00 AM EST Office Visit [place]ology [place] [address] Albino Bartholomew MD [facility] DR HEMATOLOGY [place] [address] documented as of this encounter Procedures Procedure [...] laterality documented in this encounter Care Teams Coal Cutter Relationship Specialty Start Date End Date Juan Dempsey MD [address] [place] [address] PCP - General Emergency Medicine 08/20/21 documented as of this encounter
--- OUTSIDE RECORDS SUMMARY | 2024-03-09 10:18 | XMS_ITS | Encounter Summary ---
Author Organization [facility] Address [facility] [place] [address] Care Team Providers Care Assistant Teacher Name Role Phone Juan Dempsey MD Primary Care Provider [phone] Encounter Details Date Type Department Care Team (Late st Contact Info) Description 02/25/2022 Telephone Hematology [place] [address] Daxa Arriola RN Social History [...] [facility] Hematology Oncology [address] [place] [address] 03/29/2024 12:[address] [place] [place] [address] Albino Bartholomew MD [facility] DR [place] [address] 04/05/2024 10:00 AM EST Office Visit [place]ology [place] [address] Albino Bartholomew MD [facility] [address] [place] [address] documented as of this encounter Visit Diagnoses Not on filedocumented in this encounter Care Teams Assistant Teacher Relationship Specialty Start Date End Date Juan Dempsey MD [address] [place] [address] PCP - General Emergency Medicine 08/20/21 documented as of this encounter
--- OUTSIDE RECORDS SUMMARY | 2024-03-09 10:18 | XMS_ITS | Encounter Summary ---
Author Organization [facility] Address [facility] [place] [address] Care Team Providers Care Pre K Lead Teacher Name Role Phone Juan Dempsey MD Primary Care Provider [phone] Reason for Visit * Reason Comments Follow-up Encounter Details Date Type Department Care Team (Late st Contact Info) Description 02/13/2022 1:00 PM EDT Office Visit Hematology [place] [phone] Alibno Costello MD [facility] DR HEMATOLOGY [place] [address] Edith Joaquin APRN [facility] [place] [address] Metastatic renal cell carcinoma to lung, unspecified [...] one step daughter as well 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 10/20/21 CXR ([facility]): 10/16/21: IMPRESSION 1. Unexpected finding: [...] Pt prefers to get labs at [facility]. We'll send orders and I'll ask our cover cutter to f/u on results. Advised pt to [...] [facility] [address] [place] [address] 03/29/2024 12:[address] [place] [phone] Albino Costello MD [facility] HEMATOLOGY [place] [address] 04/05/2024 10:00 AM EST Office Visit Hematology [place] [address] Albino Costello MD [facility] H[place]ATOLOGY [place] [address] Scheduled Orders Name Type Priority Associated Diagnoses [...] Free T4 1.34 0.93 - 1.70 ng/dL [facility] Comment: Reference Interval (ng/dL): Females: ??First Trimester: 0.97-1.68 ??Second Trimester: 0.77-1.51 ??Third Trimester: 0.77-1.49 Blood 06/26/2022 11:1 2 AM EST 06/26/2022 11:19 AM EST Narrative Resulting Agency Comment Spec In Lab Albino Costello MD CHEMISTRY ORDERABLES Performing Organization Address City/[facility] Co de Phone Number [facility] [place] [place] [address] * (ABNORMAL) TSH (06/26/2022 11:12 AM EST) Pathologist [facility] Thyroid Stimulating Hormone 10.60(H) 0.27 - 4.20 mcIU/mL [facility] Comment: Reference Interval (mcIU/mL): Females: ??First Trimester: 0.23-3.88 ??Second Trimester: 0.22-3.90 ??Third Trimester: 0.44-4.66 Blood 06/26/2022 11:1 2 AM EST 06/26/2022 11:19 AM EST Narrative Resulting Agency Comment Spec In Lab Albino Costello MD CHEMISTRY ORDERABLES Performing Organization Address City/[facility]/ZIP Co de Phone Number [facility] [place] [address] * (ABNORMAL) Comprehensive metabolic panel (non-fasting) (06/26/2022 11:12 AM EST) Glucose 117 65 - 199 mg/dL [facility] Comment:Diabetes: >=200 mg/d L plus symptoms Blood Urea Nitrogen 28(H) 10 - 20 mg/dL [facility] Creatinine 1.80(H) 0.80 - 1.50 mg/dL [facility] Sodium 138 135 - 145 mmol/L [facility] Potassium 3.9 3.5 - 5.0 mmol/L [facility] Comment: Please note: ??Patients with WBC >100,000 may have falsely elevated Potassium levels. ??For accurate Potassium quantification in these patients send serum separator tube (gold top) for subsequent determinations. ??Contact the Clinical Chemistry Laboratory if there are any questions. Chloride 102 98 - 107 mmol/L [facility] Carbon Dioxide 27 22 - 31 mmol/L [facility] Anion Gap 9 5 - 15 mmol/L [facility] Calcium 9.1 8.5 - 10.5 mg/dL [facility] Protein, Total 6.6 6.1 - 8.0 g/dL [facility] Albumin 4.2 3.2 - 5.2 g/dL [facility] Aspartate Aminotransferase 42(H) 0 - 39 unit/L [facility] Alanine Aminotransferase 86(H) 0 - 55 unit/L [facility] Alkaline Phosphatase 121 40 - 130 unit/L [facility] Bilirubin, Total 0.6 0.2 - 1.3 mg/dL [facility] Est Glomerular Filtration Rate 41(L) >=60 mL/min/1. 73 m?? [facility] Comment: This patient's estimated GFR was [...] Costello MD CHEMISTRY ORDERABLES Performing Organization Address [facility] Co de Phone Number [facility] [place] [address] * T4, free (05/20/2022 7:56 AM EST) Free T4 1.38 0.93 - 1.70 ng/dL [facility] Comment: Reference Interval (ng/dL): Females: ??First Trimester: 0.97-1.68 ??Second Trimester: 0.77-1.51 ??Third Trimester: 0.77-1.49 Blood 05/20/2022 7:56 AM EST 05/20/2022 8:02 AM EST Narrative Resulting Agency Comment Spec In Lab Albino Costello MD CHEMISTRY ORDERABLES Performing Organization Address [facility] Co de Phone Number [facility] [place] [address] * (ABNORMAL) TSH (05/20/2022 7:56 AM EST) Thyroid Stimulating Hormone 14.70(H) 0.27 - 4.20 mcIU/mL [facility] Comment: Reference Interval (mcIU/mL): Females: ??First Trimester: 0.23-3.88 ??Second Trimester: 0.22-3.90 ??Third Trimester: 0.44-4.66 Blood 05/20/2022 7:56 AM EST 05/20/2022 8:02 AM EST Narrative Resulting Agency Comment Spec In Lab Albino Costello MD CHEMISTRY ORDERABLES Performing Organization Address City/[facility] Co de Phone Number [facility] [place] [address] * (ABNORMAL) Comprehensive metabolic panel (non-fasting) (05/20/2022 7:56 AM EST) Glucose 103 65 - 199 mg/dL [facility] Comment:Diabetes: >=200 mg/d L plus symptoms Blood Urea Nitrogen 31(H) 10 - 20 mg/dL [facility] Creatinine 1.71(H) 0.80 - 1.50 mg/dL [facility] Sodium 141 135 - 145 mmol/L [facility] Potassium 3.4(L) 3.5 - 5.0 mmol/L [facility] Comment: Please note: ??Patients with WBC >100,000 may have falsely elevated Potassium levels. ??For accurate Potassium quantification in these patients send serum separator tube (gold top) for subsequent determinations. ??Contact the Clinical Chemistry Laboratory if there are any questions. Chloride 104 98 - 107 mmol/L [facility] Carbon Dioxide 26 22 - 31 mmol/L [facility] Anion Gap 11 5 - 15 mmol/L [facility] Calcium 9.4 8.5 - 10.5 mg/dL [facility] Protein, Total 6.5 6.1 - 8.0 g/dL [facility] Albumin 4.0 3.2 - 5.2 g/dL [facility] Aspartate Aminotransferase 62(H) 0 - 39 unit/L [facility] Alanine Aminotransferase 160(H) 0 - 55 unit/L [facility] Alkaline Phosphatase 122 40 - 130 unit/L [facility] Bilirubin, Total 0.5 0.2 - 1.3 mg/dL [facility] Est Glomerular Filtration Rate 43(L) >=60 mL/min/1. 73 m?? [facility] Comment: This patient's estimated GFR was [...] Costello MD CHEMISTRY ORDERABLES Performing Organization Address City/[facility] Co de Phone Number [facility] [place] [address] * T4, free (04/15/2022 1:45 PM EST) Free T4 1.10 0.93 - 1.70 ng/dL [facility] Comment: Reference Interval (ng/dL): Females: ??First Trimester: 0.97-1.68 ??Second Trimester: 0.77-1.51 ??Third Trimester: 0.77-1.49 Blood 04/15/2022 1:45 PM EST 04/15/2022 1:49 PM EST Narrative Resulting Agency Comment Spec In Lab Albino Costello MD CHEMISTRY ORDERABLES Performing Organization Address [facility] Co de Phone Number [facility] [place] [address] * (ABNORMAL) TSH (04/15/2022 1:45 PM EST) Thyroid Stimulating Hormone 13.90(H) 0.27 - 4.20 mcIU/mL [facility] Comment: Reference Interval (mcIU/mL): Females: ??First Trimester: 0.23-3.88 ??Second Trimester: 0.22-3.90 ??Third Trimester: 0.44-4.66 Blood 04/15/2022 1:45 PM EST 04/15/2022 1:49 PM EST Narrative Resulting Agency Comment Spec In Lab Albino Costello MD CHEMISTRY ORDERABLES Performing Organization Address [facility] Co de Phone Number [facility] [place] [address] * T4, free (03/18/2022 11:44 AM EST) Free T4 1.38 0.93 - 1.70 ng/dL [facility] Comment: Reference Interval (ng/dL): Females: ??First Trimester: 0.97-1.68 ??Second Trimester: 0.77-1.51 ??Third Trimester: 0.77-1.49 Blood 03/18/2022 11:4 4 AM EST 03/18/2022 11:59 AM EST Narrative Resulting Agency Comment Spec In Lab Albino Costello MD CHEMISTRY ORDERABLES Performing Organization Address [facility] Co de Phone Number [facility] [place] [address] * (ABNORMAL) TSH (03/18/2022 11:44 AM EST) Thyroid Stimulating Hormone 6.08(H) 0.27 - 4.20 mcIU/mL [facility] Comment: Reference Interval (mcIU/mL): Females: ??First Trimester: 0.23-3.88 ??Second Trimester: 0.22-3.90 ??Third Trimester: 0.44-4.66 Blood 03/18/2022 11:4 4 AM EST 03/18/2022 11:59 AM EST Narrative Resulting Agency Comment Spec In Lab Albino Costello MD CHEMISTRY ORDERABLES Performing Organization Address [facility] de Phone Number [facility] [place] [address] * (ABNORMAL) Comprehensive metabolic panel (non-fasting) (03/18/2022 11:44 AM EST) Glucose 112 65 - 199 mg/dL [facility] Comment:Diabetes: >=200 mg/d L plus symptoms Blood Urea Nitrogen 19 10 - 20 mg/dL [facility] Creatinine 1.46 0.80 - 1.50 mg/dL [facility] Sodium 143 135 - 145 mmol/L [facility] Potassium 3.5 3.5 - 5.0 mmol/L [facility] Comment: Please note: ??Patients with WBC >100,000 may have falsely elevated Potassium levels. ??For accurate Potassium quantification in these patients send serum separator tube (gold top) for subsequent determinations. ??Contact the Clinical Chemistry Laboratory if there are any questions. Chloride 104 98 - 107 mmol/L [facility] Carbon Dioxide 32(H) 22 - 31 mmol/L [facility] Anion Gap 7 5 - 15 mmol/L [facility] Calcium 9.4 8.5 - 10.5 mg/dL [facility] Protein, Total 6.9 6.1 - 8.0 g/dL [facility] Albumin 4.0 3.2 - 5.2 g/dL [facility] Aspartate Aminotransferase 29 0 - 39 unit/L [facility] Alanine Aminotransferase 60(H) 0 - 55 unit/L [facility] Alkaline Phosphatase 130 40 - 130 unit/L [facility] Bilirubin, Total 0.3 0.2 - 1.3 mg/dL [facility] Est Glomerular Filtration Rate 52(L) >=60 mL/min/1. 73 m?? [facility] Comment: This patient's estimated GFR [...] In Lab Albino Costello MD CHEMISTRY ORDERABLES [facility] [place] [address] documented in this encounter Visit Diagnoses Diagnosis Metastatic renal cell carcinoma to lung, unspecified laterality- Primary Renal cell carcinoma, unspecified laterality Multiple lung nodules on CT Abnormal thyroid function test Nonspecific abnormal results of thyroid function study documented in this encounter Care Teams Pre K Lead Teacher Relationship Specialty Start Date End Date Juan Dempsey MD [address] [place] [address] PCP - General Emergency Medicine 08/20/21 documented as of this encounter
--- OUTSIDE RECORDS SUMMARY | 2024-03-09 10:18 | XMS_ITS | Encounter Summary ---
Author Organization [facility] [place] [address] Care Team Providers Care Veterinary Medicine Doctor Name Role Phone Juan Dempsey MD Primary Care Provider [phone] Reason for Visit * Reason Comments Prior Authorization Cabometyx Encounter Details Date Type Department Care Team (Late st Contact Info) Description 02/13/2022 Specialty [place] [phone] Larry Mckeon, HOME SERVICE TECHNICIAN Social History Tobacco Use Types Packs/Day [...] Cristofer Tenorio Patient : 1955 Patient Address: [address] [place] [phone] (home) Medication Name: CABOMETYX 60 MG TABLET Medication ID: [id number] Subscriber Insurance: [employer] Subscriber Insurance Comment: Phone: [phone] Fax: Physician: ALBINO COSTELLO Physician Comment: Sent Via: [facility] Vega: [id number] Ref/Case/PA#: Medication Strength Frequency Requested: Take one tablet by mouth daily Qty/Day Supply: New Start: New to Therapy Diagnosis & ICD-10 Code: renal cell carcinoma Patient Notified: No Submission Notes: None Larry Mckeon 02/13/22 2:59 PM * Larry Mckeon - 02/13/2022 2:53 PM EDT [facility], Prior Authorization Approval Medication Name: CABOMETYX 60 MG TABLET Medication ID: [id number] Approval Dates: 05/03/2021 to 2025 Insurance requirements/notes: None Other Notes: None Case/Reference #: [id number] Approval notification Received via: [facility] Copay: $0 Copay assistance: None Copay Notes: Insurance mandated Pharmacy: Fillable at [facility]: Yes Pharmacy staff will be [...] AM EST Laboratory Appointment [place] [facility] [place] [address] [place] [address] 03/29/2024 12:[address] [place] [address] Albino Costello MD [facility] [place] [address] 04/05/2024 10:00 AM EST Office Visit Hematology [place] [address] Albino Costello MD [facility] [place] [address] documented as of this encounter Visit Diagnoses Not on filedocumented in this encounter Care Teams Veterinary Medicine Doctor Relationship Specialty Start Date End Date Juan Dempsey MD [address] [place] [address] PCP - General Emergency Medicine 08/20/21 documented as of this encounter
--- OUTSIDE RECORDS SUMMARY | 2024-03-09 10:18 | XMS_ITS | Encounter Summary ---
Author Organization Replaced By [facility] Address [facility] [place] [address] Care Team Providers Care Continuous Still Operator Name Role Phone Juan Dempsey MD Primary Care Provider [phone] Reason for Visit * Reason Comments Patient Education Encounter Details Date Type Department Care Team (Late st Contact Info) Description 02/19/2022 Specialty Pharmacy [place] [address] Sharda Lee, [facility] Social History Tobacco Use Types [...] patient from the cancer center such as breakfast server consultation or social welfare research worker. Administration on an empty stomach, allergies, dosage, [...] Requirements: No Medication reconciliation discrepancies (compared to [facility] med list): None Medication List: Current Outpatient [...] History Administered Date(s) Administered ??? Moderna Covid-19 (Feather Sawyer 100mcg) Vaccine 07/03/2020, 07/31/2020, 02/24/2021 ??? Zoster, Recombinant 03/16/2019 Assessment and Recommendations: Patient Counseling Patient informed of specialty services: Yes Patient accepted offer to personnel counselor: adherence/missed doses, cost of medications/cost implications, doses [...] Social Assessment: Does patient have a primary transitional care manager: No Does patient have an emergency contact on file: Yes Does patient need referral to social welfare research worker: No Does patient need referral to [...] made at the appointment and that [facility] is providing recommendations (summary located at top of note) for provider review and follow up. Sharda Lee RPH 02/26/22 2:21 PM documented in this encounter Plan of Treatment Upcoming Encounters Date Type Department Care Team (Late st Contact Info) Description 03/29/2024 10:30 AM EST Laboratory Appointment Lab at [facility] [place] [address] [place] [address] 03/29/2024 12:[address] [place] [address] Albino Bartholomew MD [facility] DR HEMATOLOGY [place] [address] 04/05/2024 10:00 AM EST Office Visit Hematology [place] [address] Albino Bartholomew MD [facility] HEMATOLOGY AND [place] [address] documented as of this encounter Visit Diagnoses Not on filedocumented in this encounter Care Teams Continuous Still Operator Relationship Specialty Start Date End Date Juan Dempsey MD [address] [place] [address] PCP - General Emergency Medicine 08/20/21 documented as of this encounter
--- OUTSIDE RECORDS SUMMARY | 2024-03-09 10:18 | XMS_ITS | Encounter Summary ---
Author Organization [facility] Address [facility] [place] [address] Care Team Providers Care Payment Analyst Name Role Phone Juan Dempsey MD Primary Care Provider [phone] Encounter Details Date Type Department Care Team [...] [facility] Hematology Oncology [address] [place] [address] 03/29/2024 12:[address] [place] [address] Albino Bartholomew MD [facility] DR [place] [address] 04/05/2024 10:00 AM EST Office Visit [place]ology [place] [address] Albino Bartholomew MD [facility] DR [place] [address] documented as of this encounter Visit Diagnoses Not on filedocumented in this encounter Care Teams Payment Analyst Relationship Specialty Start Date End Date Juan Dempsey MD [address] [place] [address] PCP - General Emergency Medicine 08/20/21 documented as of this encounter
--- OUTSIDE RECORDS SUMMARY | 2024-03-09 10:18 | XMS_ITS | Encounter Summary ---
Author Organization [facility] [place] [address] Care Team Providers Care Collating Machine Operator Name Role Phone Juan Dempsey MD Primary Care Provider [phone] Reason for Referral * Diagnostic Test (Routine) - Closed Specialty Diagnoses / Procedures Referred By Contac t Referred To Contact Radiology Diagnoses Renal cell carcinoma, unspecified laterality Procedures MRI Brain wwo Contrast (Generic) Albino Bartholomew MD [facility] [address] [place] [address] [place] [address] Referral ID Status Reason Start Date Expiration Date V isits Requested Visits Authorized [id number] Closed Specialty Service Requested 01/16/2022 07/17/2023 1 1 Reason for Visit * Diagnostic Test (Routine) - Closed Specialty Diagnoses / Procedures Referred By Contac t Referred To Contact Radiology Diagnoses Renal cell carcinoma, unspecified laterality Procedures MRI Brain wwo Contrast (Generic) Albino Bartholomew MD [facility] [place] [address] [place] [address] Referral ID Status Reason Start Date Expiration Date V isits Requested Visits Authorized [id number] Closed Specialty Service Requested 01/16/2022 07/17/2023 1 1 Encounter Details Date Type Department Care Team (Latest Contact Info) Description 02/05/2022 5:35 PM EDT - 02/05/2022 11:59 PM EDT Hospital Encounter [facility] [place] [address] Albino Bartholomew MD [facility] HEMATOLOGY [place] [address] Renal cell carcinoma, unspecified laterality [...] [facility] [place] [address] [place] [address] 03/29/2024 12:[address] [place] [address] Albino Bartholomew MD [facility] [address] [place] [address] 04/05/2024 10:00 AM EST Office Visit Hematology [place] [address] Albino Bartholomew MD [facility] [address] [place] [address] documented as of this encounter Procedures Procedure [...] who have questions please contact the health acute care assistant that requested your imaging first. ? Narrative 02/06/2022 9:28 AM EDT EXAMINATION: MRI [...] patients who have questions please contactthe health acute care assistant that requested your imaging first. Albino Bartholomew MD [facility] [place] ORDERABLES documented in this encounter Visit [...] mLs documented in this encounter Care Teams Collating Machine Operator Relationship Specialty Start Date End Date Dege, Juan E, MD [address] [place] [address] PCP - General Emergency Medicine 08/20/21 documented as of this encounter
--- OUTSIDE RECORDS SUMMARY | 2024-03-09 10:18 | XMS_ITS | Encounter Summary ---
Author Organization [facility] Address [facility] [place] [address] Care Team Providers Care Front Office Help Name Role Phone Juan Dempsey MD Primary Care Provider [phone] Reason for Visit * Reason Comments Genetic Evaluation * Consultation (Routine) - Closed Specialty Diagnoses / Procedures Referred By Burak mcnair Referred To Contact Hematology and Oncology Diagnoses Family history of melanoma History of renal carcinoma Oli Winter MD [address] [facility] [place] [address] [facility] Hem Onc [address] [place] [address] Referral ID Status Reason Start Date Expiration Date V isits Requested Visits Authorized [id number] Closed Consult, Test & Treat 10/28/2021 10/28/2022 1 1 Encounter Details Date Type Department Care Team (Late st Contact Info) Description 02/20/2022 10:00 AM EDT TH Visit (TeleHealth) [place] [address] Lamont Lewis V, [facility] [place] Hematology/[place] [address] Family history of melanoma; Renal [...] No 07/09/2021 Housing Stability Vital Sign Answer Dennsi e Recorded In the last 12 months, [...] Lewis LGC - 02/20/2022 10:00 AM EDT Cristofer Tenorio was seen by PILLO Garzon in [...] cancer. Medical history Cancer hx and treatment: Cristofer is a 67yo male who was recently [...] background is [place]. Paternal ethnic background is [place]. There is no known Ashkenazi Jehovah'S Witness ancestry. Genetic risk assessment Based on personal and/or family history, the likelihood that Cristofer would be found to have a mutation in a cancer predisposition gene is high enough to offer the option of genetic testing. Specifically, Cristofer meets NCCN criteria for BRCA1/2 genetic testing due to his family history of pancreatic cancer in his brother and breast cancer in his mother. While Cristofer's sister was also diagnosed with breast cancer, she has previously completed comprehensive genetic testing that was negative. However, this does not rule out the possibility of an inherited mutation in Cristofer or his other relatives. While Cristofer does have a personal history of renal [...] detected there is a 50% chance for Cristofer's children and siblings to have also inherited the same gene alteration. We discussed the Genetic Information Nondiscrimination Act (ETIENNE), a federal law prohibiting discrimination by health insurance companies and most employers based on genetic information. ETIENNE does not apply to life insurance, disability insurance or long-term care insurance. More information about ETIENNE may be found at [email or web address]. Cristofer opted for testing with [employer] Multi-Cancer Panel, a next generation sequencing panel that simultaneously analyzes 84 genes, including BRCA1 and BRCA2, that contribute to increased risk for cancer. Cristofer was verbally consented and will be sent consent forms to review, sign, and return. His blood sample will be drawn on 03/11/22 and sent to [facility]. We reviewed [facility] billing policy. Cristofer will be notified by text and/or email regarding his estimated out of pocket cost for testing once [facility] completes their benefits investigation. At that time, if Cristofer is concerned about the estimated test cost he will have the option to contact edomaggie ashley and either apply for [employer] patient assistance program to try and reduce cost of testingbased on income information, cancel testing, or switch to a self-pay option of $250. If Cristofer does not respond to [facility], testing will be billed to his insurance as the default option. Testing will take up to 3 weeks from when the lab receives the sample. Cristofer will be contacted via telephone once his test results become available. If positive, we will offer a follow-up appointment. At that time, we will discuss with Cristofer the implications that this test result may have for him, as well as his family members. We will also provide Cristofer with screening guidelines for cancer prevention and early detection, as well as answer any questions he may have. documented in this encounter Plan of Treatment Upcoming Encounters Date Type Department Care Team (Late st Contact Info) Description 03/29/2024 10:30 AM EST Laboratory Appointment Lab [place] [facility] [place] [address] [place] [address] 03/29/2024 12:[address] [place] [place] [address] Albino Bartholomew MD [facility] [address] [place] [address] 04/05/2024 10:00 AM EST Office Visit [place]ology [place] [address] Albino Bartholomew MD [facility] [address] [place] [address] Scheduled Referrals Name Type Priority Associated Diagnoses [...] breast documented in this encounter Care Teams Front Office Help Relationship Specialty Start Date End Date Juan Dempsey MD [address] [place] [address] PCP - General Emergency Medicine 08/20/21 documented as of this encounter
--- OUTSIDE RECORDS SUMMARY | 2024-03-09 10:18 | XMS_ITS | Encounter Summary ---
Author Organization [facility] Address [facility] [place] [address] Care Team Providers Care Top Case Assembler Name Role Phone Juan Dempsey MD Primary Care Provider [phone] Encounter Details Date Type Department Care Team (Latest Contact Info) Description 01/12/2022 10:00 AM EDT TH Visit (TeleHealth) [place] [address] Ana Pringle MD [facility] [place] [address] Autoimmune hepatitis; Drug-induced liver injury Social History [...] (Left); Achilles tendon surgery; Remv Kidney, Radical (94143) (Left, 06/23/2021); Cystourethroscopy (12643) (N/A, 06/23/2021); and Colonoscopy, Diagnostic (34374) (N/A, 10/02/2021). Family History: family history includes [...] with patient on above. Was located in [place] at the time ofthis encounter. Approximae time in review of records and documentation 5 minutes. Approximate totaltime devoted to this single encounter on the day of the encounter: 25 minutes Ana Pringle MD [facility] [place] [address] documented in this encounter Plan of Treatment Upcoming Encounters Date Type Department Care Team (Late st Contact Info) Description 03/29/2024 10:30 AM EST Laboratory Appointment Lab at [facility] [place]ematology Oncology [address] [place] [address] 03/29/2024 12:[address] [place] [address] Albino Bartholomew MD [facility] [place] [address] 04/05/2024 10:00 AM EST Office Visit Hematology [place] [address] Albino Bartholomew MD [facility] [address] [place] [address] documented as of this encounter Visit Diagnoses Diagnosis Autoimmune hepatitis Drug-induced liver injury documented in this encounter Care Teams Top Case Assembler Relationship Specialty Start Date End Date Juan Dempsey MD [address] [place] [address] PCP - General Emergency Medicine 08/20/21 documented as of this encounter
--- OUTSIDE RECORDS SUMMARY | 2024-03-09 10:18 | XMS_ITS | Encounter Summary ---
Author Organization [facility] Address [facility] [place] [address] Care Team Providers Care Silo Tender Name Role Phone Juan Dempsey MD Primary Care Provider [phone] Encounter Details Date Type Department Care Team (Late st Contact Info) Description 02/19/2022 Telephone Hematology [place] [address] Rose Mary Abarca ACTIVITY AIDE ROOM Social History Tobacco Use Types Packs/Day [...] 02/19/2022 9:38 AM EDT Message received from secretary bookkeeper: [phone] Cristofer asks for a call back He [...] [facility] [place] [place] [address] [place], [place] [id number] 03/29/2024 12:[address] [place] [place] [address] Albino Bartholomew MD [facility] [address] [place] [address] 04/05/2024 10:00 AM EST Office Visit Hematology [place] [address] Albino Bartholomew MD [facility] [place] [address] documented as of this encounter Visit Diagnoses Not on filedocumented in this encounter Care Teams Silo Tender Relationship Specialty Start Date End Date Juan Dempsey MD [address] [place] [address] PCP - General Emergency Medicine 08/20/21 documented as of this encounter
--- OUTSIDE RECORDS SUMMARY | 2024-03-09 10:18 | XMS_ITS | Encounter Summary ---
Author Organization [facility] Address [facility] [place] [address] Care Team Providers Care Hand Counter Name Role Phone Juan Dempsey MD Primary Care Provider [phone] Encounter Details Date Type Department Care Team (Late st Contact Info) Description 11/26/2021 12:00 PM EDT Office [place] [address] Ana Pringle MD [facility] [place] [address] Drug-induced hepatitis Social History Tobacco Use Types [...] Pringle MD Section of Gastroenterology & Hepatology [address] [place] [address] Time spent reviewing records prior to this [...] [facility] Oncology [address] [place], [place] [id number] 03/29/2024 12:[address] [place] [place] [address] Albino Bartholomew MD [facility] [place] [address] 04/05/2024 10:00 AM EST Office Visit Hematology and Oncology at [place] [phone] Albino Bartholomew MD [facility] [place] [address] Scheduled Orders Name Type Priority Associated Diagnoses Orde r Schedule Comprehensive metabolic panel (non-fasting) Lab Routine Drug-induced hepatitis Expected: 12/27/2021 (Approximate), Expires: 06/28/2022 documented as of this encounter Results * (ABNORMAL) Prothrombin Time (12/22/2021 8:30 AM EDT) Prothrombin Time 14.3(H) 9.4 - 12.5 sec [facility] International Normalization Ratio 1.2 LABORATORY Comment: An INR <2.0 indicates adequate [...] Ana Pringle MD HEMATOLOGY ORDERABLE S [facility] [address] [place] [address] documented in this encounter Visit Diagnoses Diagnosis Drug-induced hepatitis Hepatitis, unspecified documented in this encounter Care Teams Hand Counter Relationship Specialty Start Date End Date Juan Dempsey MD [address] [place] [address] PCP - General Emergency Medicine 08/20/21 documented as of this encounter
--- OUTSIDE RECORDS SUMMARY | 2024-03-09 10:18 | XMS_ITS | Encounter Summary ---
Author Organization [facility] Address [facility] [place] [address] Care Team Providers Care Specialty Department Supervisor Name Role Phone Juan Dempsey MD Primary Care Provider [phone] Encounter Details Date Type Department Care Team (Late st Contact Info) Description 02/04/2022 Orders [place] [address] Ana Pringle MD [facility] [place] [address] Drug-induced liver injury Social History Tobacco Use [...] [facility] Oncology [address] [place] [address] 03/29/2024 12:[address] [place] [place] [address] Albino Bartholomew MD [facility] DR [place]EMAT[place] [address] 04/05/2024 10:00 AM EST Office Visit Hematology [place] [address] Albino Bartholomew MD [facility] DR [place] [address] documented as of this encounter Visit Diagnoses Diagnosis Drug-induced liver injury documented in this encounter Care Teams Specialty Department Supervisor Relationship Specialty Start Date End Date Juan Dempsey MD [address] [place] [address] PCP - General Emergency Medicine 08/20/21 documented as of this encounter
--- OUTSIDE RECORDS SUMMARY | 2024-03-09 10:18 | XMS_ITS | Encounter Summary ---
Author Organization [facility] Address [facility] [place] [address] Care Team Providers Care Chief General Pediatric Clinic Name Role Phone Juan Dempsey MD Primary Care Provider [phone] Encounter Details Date Type Department Care Team (Late st Contact Info) Description 03/04/2022 Telephone Hematology [place] [address] Daxa Arriola RN Social History [...] 1:35 PM EDT Message received from clinical real estate legal secretary: [phone] Cristofer tested positive for covid today. Wants to know if he should do anything different with his cabometyx Forwarded [facility] advice request to Dr. Bartholomew. Discussed with Dr. Bartholomew at weekly team meeting. Dr. Bartholomew would like pt to discontinue useof Cabometyx and start antivirals recommended by PCP. [facility] message sent to pt explaining above plan. documented in this encounter Plan of Treatment Upcoming Encounters Date Type Department Care Team (Late st Contact Info) Description 03/29/2024 10:30 AM EST Laboratory Appointment Lab at [facility] Hematology Oncology [address] [place] [address] 03/29/2024 12:[address] [place] [address] Alibno Bartholomew MD [facility] [address] [place] [address] 04/05/2024 10:00 AM EST Office Visit Hematology [place] [address] Albino Bartholomew MD [facility] [address] [place] [address] documented as of this encounter Visit Diagnoses Not on filedocumented in this encounter Care Teams Chief General Pediatric Clinic Relationship Specialty Start Date End Date Juan Dempsey MD [address] [place] [address] PCP - General Emergency Medicine 08/20/21 documented as of this encounter
--- OUTSIDE RECORDS SUMMARY | 2024-03-09 10:18 | XMS_ITS | Encounter Summary ---
Author Organization [facility] [place] [address] Care Team Providers Care Telephone Operator Receptionist Name Role Phone Juan Dempsey MD Primary Care Provider [phone] Reason for Referral * Diagnostic Test (Routine) - Closed Specialty Diagnoses / Procedures Referred By Contac t Referred To Contact Radiology Diagnoses Renal cell carcinoma, unspecified laterality Multiple lung nodules on CT Procedures CT Guided Biopsy Lung Albino Bartholomew MD [facility] [place] [address] [facility] [place] [address] Referral ID Status Reason Start Date Expiration Date V isits Requested Visits Authorized [id number] Closed Specialty Service Requested 01/16/2022 07/17/2023 1 1 Reason for Visit * Diagnostic Test (Routine) - Closed Specialty Diagnoses / Procedures Referred By Contac t Referred To Contact Radiology Diagnoses Renal cell carcinoma, unspecified laterality Multiple lung nodules on CT Procedures CT Guided Biopsy Lung Albino Bartholomew MD [facility] [place] [address] [place] [place] [address] Referral ID Status Reason Start Date Expiration Date V isits Requested Visits Authorized [id number] Closed Specialty Service Requested 01/16/2022 07/17/2023 1 1 Encounter Details Date Type Department Care Team (Latest Contact Info) Description 02/04/2022 8:47 AM EDT - 02/04/2022 10:59 AM EDT Hospital Encounter CT Scan at [facility] [place] [address] Albino Bartholomew MD [facility] [place] [address] Pre-op testing; Renal cell carcinoma, [...] Elizalde RN - 02/04/2022 11:19 AM EDT [facility] Vascular and Interventional Radiology Biopsy Discharge [...] be reported to you by your primary patient care provider or the clinician who ordered the biopsy. Please do not call us for results as we will not have them. If you have not been contacted by your clinician within 5 business days you should call that officefor further information. When to call the Interventional Radiology Department: Please call with any questions or concerns. If it is during regular office hours, please call [phone]. If it is after regular office hours, or on weekends or holidays, please call [phone] and ask to speak to the Tamping Machine Operator ribbon sweatband operator for Interventional Radiology. You have received medication [...] of : 1955 AGE: 66 y.o. Address: [address] [place] [address] (home) Mobile: Telephone Information: Referring Provider: Albino Bartholomew REASON FOR VISIT: Order Questions Answers Where will study be performed? [facility] Radiology [120] Laterality Left Is the patient [...] DIAGNOSTIC performed by Jordyn Merino MD at [facility] ENDOSCOPY ??? PRO CYSTOURETHROSCOPY N/A 06/23/2021 CYSTO, CYSTOURETHROSCOPY, DIAGNOSTIC (WRVU 2.23) performed by Jordan Hou MD at [facility] MAIN OR ??? PRO REMV KIDNEY, RADICAL Left 06/23/2021 @NEPHRECTOMY, RADICAL W\REG LYMPHADENECTOMY &\OR VENA CAVA THROMBECTOMY (WRVU 23.81) performed by Jordan Hou MD at [facility] MAIN OR Medications: Medication Sig ? [...] AM EST Laboratory Appointment Lab at [facility] Hematology Oncology [address] [place] [address] 03/29/2024 12:[address] [place] [address] Albino Bartholomew MD [facility] [place] [address] 04/05/2024 10:00 AM EST Office Visit Hematology [place] [address] Albino Bartholomew MD [facility] [place] [address] documented as of this encounter Procedures Procedure [...] who have questions please contact the health childcare worker that requested your imaging first. ? [...] patients who have questions please contactthe health childcare worker that requested your imaging first. Electronically signed by: Ragini Molina MD, [facility] ([phone]), at 02/04/2022 3:02 PM Rich Baldwin MD IMG DX ORDERABLES * [...] who have questions please contact the health childcare worker that requested your imaging first. ? [...] patients who have questions please contactthe health childcare worker that requested your imaging first. Rich Baldwin MD IMG DX ORDERABLES * CT Guided Biopsy Lung (02/04/2022 10:51 AM EDT) Anatomical Region Laterality Modality Lung Computed Tomogra phy Impressions 02/04/2022 10:54 AM EDT Impression: Technically successful CT-guided core needle biopsy of the left lung. Loom Fixer Apprentice(s): Attending: Rich Baldwin MD Procedure/Teaching Attestation: ??I [...] who have questions please contact the health childcare worker that requested your imaging first. ? Narrative 02/04/2022 10:54 AM EDT RADIOLOGY PROCEDURE [...] CT-guided core needle biopsy of theleft lung. Loom Fixer Apprentice(s): Attending: Rich Baldwin MD Procedure/Teaching Attestation: I performed the procedure. Moderate Sedation Attestation: I was present during the intra-service timeas documented by the IR nurse. Thank you for letting us participate in the care of this patient. If youare a health care provider and have any questions regarding this report,please contact the number below. For patients who have questions please contactthe health childcare worker that requested your imaging first. Albino Bartholomew MD IMG CT ORDERABLES * Surgical Pathology Report (02/04/2022 10:40 AM EDT) Final Diagnosis [id number] ? Location: [facility] The signing pathologist has (i) examined the relevant preparation(s) for the specimen(s) and (ii) rendered or confirmed the diagnosis(es). . ?Surgical Pathology DIAGNOSIS A - Lung, left, core biopsy: - Metastatic clear cell renal cell carcinoma. Electronically signed by: ?Danica Melissa MD Verified: ??02/10/2022 8:25 ?? Pathologist Performed at: ??-[facility] Dept. of Pathology, [place], [place] ADDITIONAL STUDIES Immunohistochemistry Studies: Formalin-fixed, paraffin-embedded [...] labeled A1. ??sns 02/10/2022 8:25 AM EDT [facility] LUNG STRUCTURE / Unknown 02/04/2022 10:40 AM EDT 02/04/2022 10:40 AM EDT Albino Bartholomew MD PATHOLOGY/CYTOLOGY O RDERABLES [facility] [place] [address] * Specimen to Pathology (02/04/2022 8:09 AM EDT) AP Specimen 02/04/2022 8:09 AM EDT 02/04/2022 8:09 AM EDT Narrative [facility] - 02/04/2022 8:09 AM EDT Specimen requisition ordered. ??Separate Pathology report to follow Albino Bartholomew MD PATHOLOGY/CYTOLOGY O RDERABLES Performing Organization Address [facility]/ZIP Co de Phone Number [facility] [place] [address] * Prothrombin Time (02/04/2022 7:52 AM EDT) Prothrombin Time 10.9 9.4 - 12.5 sec [facility] International Normalization Ratio 1.0 [facility] Comment: An INR <2.0 indicates [...] ORDERABLE S Performing Organization Address [facility]/ZIP Co de Phone Number [facility] [place] [address] * Platelet count (02/04/2022 7:52 AM EDT) Platelet 189 145 - 357 x10(3)/mc L [facility] Immature Plt % 2.0 0.0 - 7.4 % [facility] Comment: Limitation of the Immature Platelet Fraction (IPF)-May be less reliable when the platelet count is less than 59s362/uL due to statistical imprecision. The IPF value [...] in a decreased state of production. References: [employer] The Clinical Value of the Immature Platelet Fraction (IPF) in Cell Recovery Document Number 10-1143 10/2010 [employer] The Role of the Immature Platelet Fraction (IPF) in the Differential Diagnosis of Thrombocytopenia, Document [id number] V009/11/13 P009/13 Blood 02/04/2022 7:52 AM EDT 02/04/2022 7:58 AM EDT Narrative Resulting Agency Comment Spec In Lab Albino Bartholomew MD HEMATOLOGY ORDERABLE S Performing Organization Address City/State/[facility] Co [place] [address] documented in this encounter Visit Diagnoses Diagnosis [...] mg documented in this encounter Care Teams Telephone Operator Receptionist Relationship Specialty Start Date End Date Juan Dempsey MD [address] [place] [address] PCP - General Emergency Medicine 08/20/21 documented as of this encounter
--- OUTSIDE RECORDS SUMMARY | 2024-03-09 10:18 | XMS_ITS | Encounter Summary ---
Author Organization Formerly [facility], [facility] Address [facility] [place] [address] Care Team Providers Care Digital Printer Operator Name Role Phone Juan Dempsey MD Primary Care Provider [phone] Encounter Details Date Type Department Care Team (Late st Contact Info) Description 01/19/2022 Notes Only [place] [phone] John Paul Brenner MD [facility] [place] [address] Social History Tobacco Use Types Packs/Day Years [...] disease, needs histological confirmation. Presenting Diagnosis/ Complaint: Cristofer Tenorio is a 66 y.o. male [...] DIAGNOSTIC performed by Jordyn Merino MD at [facility] ENDOSCOPY ??? PRO CYSTOURETHROSCOPY N/A 06/23/2021 CYSTO, CYSTOURETHROSCOPY, DIAGNOSTIC (VU 2.23) performed by Jordan Hou MD at [facility] MAIN OR ??? PRO REMV KIDNEY, RADICAL Left 06/23/2021 @NEPHRECTOMY, RADICAL W\REG LYMPHADENECTOMY &\OR VENA CAVA THROMBECTOMY [facility] performed by Jordan Hou MD at [facility] MAIN OR Medications: Medication Sig ? ? [...] AM EST Laboratory Appointment Lab at [facility] Hematology Oncology [address] [place] [address] 03/29/2024 12:[address] [place] [address] Albino Bartholomew MD [facility] DR [place] [address] 04/05/2024 10:00 AM EST Office Visit Hematology [place] [address] Albino Bartholomew MD [facility] DR [place] [address] documented as of this encounter Visit Diagnoses Not on filedocumented in this encounter Care Teams Digital Printer Operator Relationship Specialty Start Date End Date Juan Dempsey MD [address] [place] [address] PCP - General Emergency Medicine 08/20/21 documented as of this encounter
--- OUTSIDE RECORDS SUMMARY | 2024-03-09 10:18 | XMS_ITS | Encounter Summary ---
Author Organization [facility] Address [facility] [place] [address] Care Team Providers Care Bearing Machine Operator Name Role Phone Juan Dempsey MD Primary Care Provider [phone] Encounter Details Date Type Department Care Team (Late st Contact Info) Description 02/23/2022 Orders Only Hematology [place] [address] Lamont Lewis V [facility] Hematology/[place] [address] Family history of melanoma; Renal cell carcinoma [...] [facility] Hematology Oncology [address] [place] [address] 03/29/2024 12:[address] [place] [address] Albino Bartholomew MD [facility] [place] [address] 04/05/2024 10:00 AM EST Office Visit Hematology [place] [address] Albino Bartholomew MD [facility] [address] [place] [address] documented as of this encounter Results * Research Venipuncture (03/18/2022 11:44 AM EST) [facility] Research Venipuncture Drawn [facility] Blood 03/18/2022 11:4 4 AM EST 03/18/2022 11:59 AM EST Narrative Resulting Agency Comment Spec In Lab Odell Ruiz MD CHEMISTRY ORDERABLES [facility] [place] [address] documented in this encounter Visit Diagnoses Diagnosis Family history of melanoma Family history of other specified malignant neoplasm Renal cell carcinoma of left kidney Family history of pancreatic cancer Family history of malignant neoplasm of gastrointestinal tract Family history of colon cancer Family history of malignant neoplasm of gastrointestinal tract Family history of malignant neoplasm of breast documented in this encounter Care Teams Bearing Machine Operator Relationship Specialty Start Date End Date Juan Dempsey MD [address] [place] [address] PCP - General Emergency Medicine 08/20/21 documented as of this encounter
--- OUTSIDE RECORDS SUMMARY | 2024-03-09 10:18 | XMS_ITS | Encounter Summary ---
Author Organization [facility] Address [facility] [place] [address] Care Team Providers Care Finisher Cold Rolling Name Role Phone Juan Dempsey MD Primary Care Provider [phone] Encounter Details Date Type Department Care Team (Latest Contact Info) Description 02/04/2022 11:00 AM EDT - 02/04/2022 12:59 PM EDT Hospital Encounter XRay at [address] [place] [address] Rich Baldwin MD [facility] [address] Discharge Disposition: Home Social History Tobacco Use [...] [facility] [place] Oncology [address] [place] [address] 03/29/2024 12:[address] [place] [address] Albino Bartholomew MD [facility] [place] [address] 04/05/2024 10:00 AM EST Office Visit Hematology [place] [address] Albino Bartholomew MD [facility] [place] [address] documented as of this encounter Procedures Procedure [...] who have questions please contact the health complex care nurse that requested your imaging first. [...] patients who have questions please contactthe health complex care nurse that requested your imaging first. Rich Baldwin MD IMG DX ORDERABLES documented in this encounter Visit Diagnoses Not on filedocumented in this encounter Care Teams Finisher Cold Rolling Relationship Specialty Start Date End Date Juan Dempsey MD [address] [place] [address] PCP - General Emergency Medicine 08/20/21 documented as of this encounter
--- OUTSIDE RECORDS SUMMARY | 2024-03-09 10:18 | XMS_ITS | Encounter Summary ---
Author Organization [facility] Address [facility] [place] [address] Care Team Providers Care Feather Duster Winder Name Role Phone Juan Dempsey MD Primary Care Provider [phone] Reason for Referral * Diagnostic Test (Routine) - Closed Specialty Diagnoses / Procedures Referred By Contac t Referred To Contact Radiology Diagnoses Renal cell carcinoma, unspecified laterality Procedures MRI Brain wwo Contrast (Generic) Albino Costello MD [facility] [place] [address] [place] [address] Referral ID Status Reason Start Date Expiration Date V isits Requested Visits Authorized [id number] Closed Specialty Service Requested 01/16/2022 07/17/2023 1 1 * Diagnostic Test (Routine) - Closed Specialty Diagnoses / Procedures Referred By Contac t Referred To Contact Radiology Diagnoses Renal cell carcinoma, unspecified laterality Procedures MRI Abdomen wwo Contrast (Generic) Albino Costello MD [facility] [place] [address] [place] [address] Referral ID Status Reason Start Date Expiration Date V isits Requested Visits Authorized [id number] Closed Specialty Service Requested 01/16/2022 07/17/2023 1 1 * Diagnostic Test (Routine) - Closed Specialty Diagnoses / Procedures Referred By Contac t Referred To Contact Radiology Diagnoses Renal cell carcinoma, unspecified laterality Multiple lung nodules on CT Procedures CT Guided Biopsy Lung Albino Costello MD [facility] [place] [address] [facility] [place] [address] Referral ID Status Reason Start Date Expiration Date V isits Requested Visits Authorized [id number] Closed Specialty Service Requested 01/16/2022 07/17/2023 1 1 Encounter Details Date Type Department Care Team (Latest Contact Info) Description 01/16/2022 3:30 PM EDT TH Visit (TeleHealth) Hematology [place] [address] Albino Costello MD [facility] [place] [address] Renal cell carcinoma, unspecified laterality (Primary Dx); [...] or infectious symptoms. Interval History: I called Cristofer for f/u on kidney cancer and to [...] in the abdomen and pelvis. 10/20/21 CXR ([facility]): 10/16/21: IMPRESSION 1. Unexpected finding: [...] taper. Pt prefers to get labs at [facility]. We'll send orders and I'll ask our search engine marketing strategist to f/u on results. Advised pt to [...] [facility] Hematology Oncology [address] [place] [address] 03/29/2024 12:[address] [place] [address] Albino Costello MD [facility] [place] [address] 04/05/2024 10:00 AM EST Office Visit Hematology [place] [address] Albino Costello MD [facility] [place] [address] documented as of this encounter Results * [...] who have questions please contact the health manager respiratory care that requested your imaging first. ? [...] patients who have questions please contactthe health manager respiratory care that requested your imaging first. Albino Costello MD [facility] MRI ORDERABLES * MRI Brain wwo Contrast [...] who have questions please contact the health manager respiratory care that requested your imaging first. ? [...] patients who have questions please contactthe health manager respiratory care that requested your imaging first. Albino Costello MD IMG MRI ORDERABLES * CT Guided Biopsy Lung (02/04/2022 10:51 AM EDT) Anatomical Region Laterality Modality Lung Computed Tomogra phy Impressions 02/04/2022 10:54 AM EDT Impression: Technically successful CT-guided core needle biopsy of the left lung. Linux Network Engineer(s): Attending: Rich Baldwin MD Procedure/Teaching Attestation: ??I [...] who have questions please contact the health manager respiratory care that requested your imaging first. ? [...] CT-guided core needle biopsy of theleft lung. Linux Network Engineer(s): Attending: Rich Baldwin MD Procedure/Teaching Attestation: I performed the procedure. Moderate Sedation Attestation: I was present during the intra-service timeas documented by the IR nurse. Thank you for letting us participate in the care of this patient. If youare a health care provider and have any questions regarding this report,please contact the number below. For patients who have questions please contactthe health manager respiratory care that requested your imaging first. Albino Costello [...] laterality documented in this encounter Care Teams Feather Duster Winder Relationship Specialty Start Date End Date Juan Dempsey MD [address] [place] [address] PCP - General Emergency Medicine 08/20/21 documented as of this encounter
--- OUTSIDE RECORDS SUMMARY | 2024-03-09 10:18 | XMS_ITS | Encounter Summary ---
Author Organization [facility] Address [facility] [place] [address] Care Team Providers Care Accounting Manager Controller Name Role Phone Juan Dempsey MD Primary Care Provider [phone] Encounter Details Date Type Department Care Team (Late st Contact Info) Description 01/08/2022 External [place] [address] Ana Pringle MD [facility] [address] Social History Tobacco Use Types Packs/Day Years [...] [facility] Hematology Oncology [address] [place] [address] 03/29/2024 12:[address] [place] [place] [address] Albino Bartholomew MD [facility] DR [place] [address] 04/05/2024 10:00 AM EST Office Visit [place]ematology [place] [address] Albino Bartholomew MD [facility] DR [place] [address] documented as of this encounter Procedures Procedure [...] on filedocumented in this encounter Care Teams Accounting Manager Controller Relationship Specialty Start Date End Date Juan Dempsey MD [address] [place] [address] PCP - General Emergency Medicine 08/20/21 documented as of this encounter
--- OUTSIDE RECORDS SUMMARY | 2024-03-09 10:18 | XMS_ITS | Encounter Summary ---
Author Organization [facility] Address [facility] [place] [address] Care Team Providers Care Investment Executive Name Role Phone Juan Dempsey MD Primary Care Provider [phone] Encounter Details Date Type Department Care Team (Latest Contact Info) Description 12/22/2021 8:25 AM EDT Laboratory Appointment Laboratory at [facility] [place] [address] Elevated LFTs; Renal cell carcinoma, [...] Laboratory Appointment Lab at [place] Hematology Oncology [address] [place] [address] 03/29/2024 12:[address] [place] [place] [address] Albino Bartholomew MD [facility] DR [place] [address] 04/05/2024 10:00 AM EST Office Visit [place]ematology [place] [address] Albino Bartholomew MD [facility] DR [place] [address] documented as of this encounter Procedures Procedure [...] 8:30 AM EDT) Neutrophil % 80.6 % [facility] Neutrophil Absolute 8.57(H) 1.70 - 6.10 x10(3)/mc L [facility] Lymph % 11.1 % [facility] Lymphocytes Abs 1.2 0.9 - 3.2 x10(3)/mc L [facility] Monocyte % 4.0 % [facility] Monocyte Abs 0.4 0.3 - 0.9 x10(3)/mc L [facility] Eos % 3.5 % [facility] Eosinophils Abs 0.4 0.0 - 0.4 x10(3)/mc L [facility] Basophil % 0.5 % [facility] Baso Absolute 0.0 0.0 - 0.1 x10(3)/mc L [facility] Immature Gran % 0.30 % [facility] Comment: Immature granulocytes(IG's)percentage and absolute count will include metamyelocytes, myelocytes, and promyelocytes. Blood smears from CBCs yielding IG's will be scanned manually for concordance. If this scan disagrees with the automated IG or if promyelocytes are noted, a manual differential will be performed. Immature Gran Absolute 0.03 0.00 - 0.04 x10(3)/mc L [facility] Blood 12/22/2021 8:30 AM EDT 12/22/2021 8:44 AM EDT Narrative Resulting Agency Comment Spec In Lab Ana Pringle MD HEMATOLOGY ORDERABLE S [facility] [address] [place] [address] * (ABNORMAL) Hemogram (12/22/2021 8:30 AM EDT) White Blood Cell 10.6(H) 4.0 - 9.5 x10(3)/mc L [facility] Red Blood Cell 5.00 4.58 - 5.54 x10(6)/mc L [facility] Hemoglobin 14.7 13.7 - 16.5 g/dL [facility] Hematocrit 45.5 40.5 - 48.5 % [facility] Mean Cell Volume 91.0 82.9 - 93.1 fL [facility] Mean Cell Hemoglobin 29.4 27.5 - 32.1 pg [facility] Mean Cell Hemoglobin Concentration 32.3 32.0 - 35.7 g/dL [facility] Platelet 217 145 - 357 x10(3)/mc L [facility] RDW Standard Deviation 47.0(H) 36.0 - 45.0 fL [facility] RDW coefficient of variation 13.8 11.4 - 13.8 % [facility] Mean Platelet Volume 9.4 7.6 - 12.9 fL [facility] Blood 12/22/2021 8:30 AM EDT 12/22/2021 8:44 AM EDT Narrative Resulting Agency Comment Spec In Lab Ana Pringle MD HEMATOLOGY ORDERABLE S [facility] [address] [place] [address] * (ABNORMAL) Prothrombin Time (12/22/2021 8:30 AM EDT) Prothrombin Time 14.3(H) 9.4 - 12.5 sec [facility] International Normalization Ratio 1.2 [facility] Comment: An INR <2.0 indicates adequate [...] Pringle MD HEMATOLOGY ORDERABLE S [facility] [address] [place] [address] * (ABNORMAL) Comprehensive metabolic panel (non-fasting) (12/22/2021 [...] Anion Gap 11 5 - 15 mmol/L [facility] Calcium 9.4 8.5 - 10.5 mg/dL [...] Filtration Rate 64 >=60 mL/min/1. 73 m?? [facility] Comment: This patient's estimated GFR was [...] Lab Kelin Carlos APRN CHEMISTRY ORDERABL ES [facility] [address] [place] [address] documented in this encounter Visit Diagnoses Diagnosis Elevated LFTs Other abnormal blood chemistry Renal cell carcinoma, unspecified laterality Drug-induced hepatitis Hepatitis, unspecified documented in this encounter Care Teams Investment Executive Relationship Specialty Start Date End Date Juan Dempsey MD [address] [place] [address] PCP - General Emergency Medicine 08/20/21 documented as of this encounter
--- OUTSIDE RECORDS SUMMARY | 2024-03-09 10:18 | XMS_ITS | Encounter Summary ---
Author Organization [facility] Address [facility] [place] [address] Care Team Providers Care Steel Spar Operator Name Role Phone Juan Dempsey MD Primary Care Provider Encounter Details Date Type Department Care Team (Late st Contact Info) Description 2022 Telephone Hematology [place] [address] Bonita Gomez, RN Social History [...] [facility] Hemat[facility] Oncology [address] [place] [address] 03/29/2024 12:[address] [place] [place] [address] Albino Bartholomew MD [facility] DR HEMATOLOGY [place] [address] 04/05/2024 10:00 AM EST Office Visit Hematology [place] [address] Albino Bartholomew MD [facility] DR [place]EMATOLOGY [place] [address] documented as of this encounter Visit Diagnoses Not on filedocumented in this encounter Care Teams Steel Spar Operator Relationship Specialty Start Date End Date Juan Dempsey MD [address] [place] [address] PCP - General Emergency Medicine 08/20/21 documented as of this encounter
--- OUTSIDE RECORDS SUMMARY | 2024-03-09 10:18 | XMS_ITS | Encounter Summary ---
Author Organization [facility] Address [facility] [place] [address] Care Team Providers Care Auto Driver Name Role Phone Juan Dempsey MD Primary Care Provider [phone] Encounter Details Date Type Department Care Team (Late st Contact Info) Description 01/09/2022 Orders [place] [address] Ana Pringle MD [facility] [place] [address] Autoimmune hepatitis Social History Tobacco Use Types [...] [facility] Hematology Oncology [address] [place] [address] 03/29/2024 12:[address] [place] [place] [address] Albino Bartholomew MD [facility] DR [place] [address] 04/05/2024 10:00 AM EST Office Visit [place]ology [place] [address] Albino Bartholomew MD [facility] DR [place] [address] Scheduled Orders Name Type Priority Associated Diagnoses Orde r Schedule Hepatic Function Panel Lab Routine Autoimmune hepatitis As Needed for 12 Occurrences starting 01/10/2022 until 04/29/2024 documented as of this encounter Visit Diagnoses Diagnosis Autoimmune hepatitis documented in this encounter Care Teams Auto Driver Relationship Specialty Start Date End Date Juan Dempsey MD [address] [place] [address] PCP - General Emergency Medicine 08/20/21 documented as of this encounter
--- OUTSIDE RECORDS SUMMARY | 2024-03-09 10:18 | XMS_ITS | Encounter Summary ---
Author Organization [facility] Address [facility] [place] [address] Care Team Providers Care Senior Account Clerk Name Role Phone Juan Dempsey MD Primary Care Provider [phone] Encounter Details Date Type Department Care Team (Late st Contact Info) Description 02/14/2022 Telephone Hematology [place] [address] [facility] DR HEMATOLOGY/[place] [address] Social History Tobacco Use Types Packs/Day Years [...] scheduled for next week. Odell Ruiz MD highway engineering technician in Hematology-Oncology documented in this encounter Plan of Treatment Upcoming Encounters Date Type Department Care Team (Late st Contact Info) Description 03/29/2024 10:30 AM EST Laboratory Appointment Lab at [facility] Hematology Oncology [address] [place] [address] 03/29/2024 12:[address] [place] [address] [facility] [place] [address] 04/05/2024 10:00 AM EST Office Visit Hematology [place] [address] [facility] DR [place]ATOLOG[place] [address] documented as of this encounter Visit Diagnoses Not on filedocumented in this encounter Care Teams Senior Account Clerk Relationship Specialty Start Date End Date Juan Dempsey MD [address] [place] [address] PCP - General Emergency Medicine 08/20/21 documented as of this encounter
--- OUTSIDE RECORDS SUMMARY | 2024-03-09 10:18 | XMS_ITS | Encounter Summary ---
Author Organization [facility] Address [place] [address] Care Team Providers Care Reading Aide Name Role Phone Juan Dempsey MD Primary Care Provider [phone] Encounter Details Date Type Department Care Team (Late st Contact Info) Description 02/05/2022 Abstract [place] [address] Ana Pringle MD [facility] [place] [address] Social History Tobacco Use Types Packs/Day Years [...] AM EST Laboratory Appointment Lab at [facility] Hematology Oncology [address] [place] [address] 03/29/2024 12:[address] [place] [address] Albino Bartholomew MD [facility] DR [place] [address] 04/05/2024 10:00 AM EST Office Visit Hematology [place] [address] Ablino Bartholomew MD [facility] DR [place] [address] documented as of this encounter Visit Diagnoses Not on filedocumented in this encounter Care Teams Reading Aide Relationship Specialty Start Date End Date Juan Dempsey MD [address] [place] [address] PCP - General Emergency Medicine 08/20/21 documented as of this encounter
--- OUTSIDE RECORDS SUMMARY | 2024-03-09 10:18 | XMS_ITS | Encounter Summary ---
Author Organization [facility] Address [facility] [place] [address] Care Team Providers Care Finish Cleaner Name Role Phone Juan Dempsey MD Primary Care Provider [phone] Reason for Visit * Reason Comments Specialty Pharmacy Review Cabometyx 60mg tablet Encounter Details Date Type Department Care Team (Late st Contact Info) Description 02/20/2022 Specialty [place] [id number] Kelin Chong, [facility] Social History Tobacco Use Types Packs/Day [...] Chong - 02/20/2022 11:59 PM EDT The [facility] has completed a benefits investigation for Cristofer Tenorio to review their eligibility to fill at [facility]. Per patient's medication list they are prescribedCabometyx 60mg tablet and the medication is able to be filled at the [facility]. The patient is currently filling the medication through Specialty Pharmacy with a $0 copay. PA approved until 2025 documented in this encounter Plan of Treatment Upcoming Encounters Date Type Department Care Team (Late st Contact Info) Description 03/29/2024 10:30 AM EST Laboratory App[place]ment [place] [facility] [place] [address] [place] [address] 03/29/2024 12:[address] [place] [address] Albino Bartholomew MD [facility] DR [place] [address] 04/05/2024 10:00 AM EST Office Visit Hematology [place] [address] Albino Bartholomew MD [facility] DR [place] [address] documented as of this encounter Visit Diagnoses Not on filedocumented in this encounter Care Teams Finish Cleaner Relationship Specialty Start Date End Date Juan Dempsey MD [address] [place] [address] PCP - General Emergency Medicine 08/20/21 documented as of this encounter
--- OUTSIDE RECORDS SUMMARY | 2024-03-09 10:18 | XMS_ITS | Encounter Summary ---
Author Organization [facility] [place] [address] Care Team Providers Care Ecdis N Navigation Operator Name Role Phone Juan Dempsey MD Primary Care Provider [phone] Encounter Details Date Type Department Care Team (Latest Contact Info) Description 02/04/2022 7:40 AM EDT Laboratory Appointment Lab [address] [place] [address] Pre-op testing; Renal cell carcinoma, [...] [facility] [place] On[place] [address] [place] [address] 03/29/2024 12:[address] [place] [address] Albino Bartholomew MD [facility] DR [place] [address] 04/05/2024 10:00 AM EST Office Visit Hematology [place] [address] Albino Bartholomew MD [facility] DR [place] [address] documented as of this encounter Procedures Procedure [...] * Bilirubin, Direct (02/04/2022 7:52 AM EDT) [facility] Bilirubin, Direct 0.1 0.0 - 0.3 mg/dL [facility] Blood 02/04/2022 7:52 AM EDT 02/04/2022 7:58 AM EDT Narrative Resulting Agency Comment Spec In Lab Ana Pringle MD CHEMISTRY ORDERABLES Performing Organization Address City/State/[facility] Co de Phone Number [facility] [place] [address] * (ABNORMAL) Differential, Automated (02/04/2022 7:52 AM EDT) [facility] Neutrophil % 72.9 % [facility] Neutrophil Absolute 7.51(H) 1.70 - 6.10 x10(3)/mc L [facility] Lymph % 18.3 % [facility] Lymphocytes Abs 1.9 0.9 - 3.2 x10(3)/mc L [facility] Monocyte % 5.7 % [facility] Monocyte Abs 0.6 0.3 - 0.9 x10(3)/mc L [facility] Eos % 1.6 % [facility] Eosinophils Abs 0.2 0.0 - 0.4 x10(3)/ L [facility] Basophil % 0.9 % [facility] Baso Absolute 0.1 0.0 - 0.1 x10(3)/[facility] Immature Gran % 0.60 % [facility] Comment: Immature granulocytes(IG's)percentage and absolute count will include metamyelocytes, myelocytes, and promyelocytes. Blood smears from CBCs yielding IG's will be scanned manually for concordance. If this scan disagrees with the automated IG or if promyelocytes are noted, a manual differential will be performed. Immature Gran Absolute 0.06(H) 0.00 - 0.04 x10(3)/[facility] Blood 02/04/2022 7:52 AM EDT 02/04/2022 7:58 AM EDT Narrative Resulting Agency Comment Spec In Lab Ana Pringle MD HEMATOLOGY ORDERABLE S [facility] [place] [address] * (ABNORMAL) Hemogram (02/04/2022 7:52 AM EDT) White Blood Cell 10.3(H) 4.0 - 9.5 x10(3)/[facility] Red Blood Cell 5.09 4.58 - 5.54 x10(6)/[facility] Hemoglobin 14.5 13.7 - 16.5 g/dL [facility] Hematocrit 44.6 40.5 - 48.5 % [facility] Mean Cell Volume 87.6 82.9 - 93.1 fL [facility] Mean Cell Hemoglobin 28.5 27.5 - 32.1 pg [facility] Mean Cell Hemoglobin Concentration 32.5 32.0 - 35.7 g/dL [facility] Platelet 189 145 - 357 x10(3)/ L [facility] RDW Standard Deviation 44.3 36.0 - 45.0 fL [facility] RDW coefficient of variation 13.7 11.4 - 13.8 % [facility] Mean Platelet Volume 9.3 7.6 - 12.9 fL [facility] NRBC% auto 0.0 % [facility] NRBC Absolute 0.000 0.000 - 0.000 x10(3)/mc L [facility] Blood 02/04/2022 7:52 AM EDT 02/04/2022 7:58 AM EDT Narrative Resulting Agency Comment Spec In Lab Ana Pringle MD HEMATOLOGY ORDERABLE S [facility] [place] [address] * (ABNORMAL) Comprehensive metabolic panel (non-fasting) (02/04/2022 7:52 AM EDT) Glucose 104 65 - 199 mg/dL [facility] Comment:Diabetes: >=200 mg/d L plus symptoms Blood Urea Nitrogen 22(H) 10 - 20 mg/dL [facility] Creatinine 1.20 0.80 - 1.50 mg/dL [facility] Sodium 141 135 - 145 mmol/L [facility] Potassium 4.0 3.5 - 5.0 mmol/L [facility] Comment: Please note: ??Patients with WBC >100,000 may have falsely elevated Potassium levels. ??For accurate Potassium quantification in these patients send serum separator tube (gold top) for subsequent determinations. ??Contact the Clinical Chemistry Laboratory if there are any questions. Chloride 105 98 - 107 mmol/L [facility] Carbon Dioxide 29 22 - 31 mmol/L [facility] Anion Gap 7 5 - 15 mmol/L [facility] Calcium 9.3 8.5 - 10.5 mg/dL [facility] Protein, Total 6.7 6.1 - 8.0 g/dL [facility] Albumin 4.1 3.2 - 5.2 g/dL [facility] Aspartate Aminotransferase 18 0 - 39 unit/L [facility] Alanine Aminotransferase 24 0 - 55 unit/L [facility] Alkaline Phosphatase 92 40 - 130 unit/L [facility] Bilirubin, Total 0.3 0.2 - 1.3 mg/dL [facility] Est Glomerular Filtration Rate 67 >=60 mL/min/1. 73 m?? [facility] Comment: This patient's estimated [...] In Lab Ana Pringle MD CHEMISTRY ORDERABLES [facility] [place] [address] * Prothrombin Time (02/04/2022 7:52 AM EDT) Prothrombin Time 10.9 9.4 - 12.5 sec [facility] International Normalization Ratio 1.0 [facility] Comment: An INR <2.0 indicates [...] Lab Albino Bartholomew MD HEMATOLOGY ORDERABLE S [facility] [place] [address] * Platelet count (02/04/2022 7:52 AM EDT) Platelet 189 145 - 357 x10(3)/mc L [facility] Immature Plt % 2.0 0.0 - 7.4 % [facility] Comment: Limitation of the Immature Platelet Fraction (IPF)-May be less reliable when the platelet count is less than 57u766/uL due to statistical imprecision. The IPF value [...] in a decreased state of production. References: [employer] The Clinical Value of the Immature Platelet Fraction (IPF) in Cell Recovery Document Number 10-1143 10/2010 [employer] The Role of the Immature Platelet Fraction (IPF) in the Differential Diagnosis of Thrombocytopenia, Document MKT-10-1209 V05/04/15 P0514 Blood 02/04/2022 7:52 AM EDT 02/04/2022 7:58 AM EDT Narrative Resulting Agency Comment Spec In Lab Albino Bartholomew MD HEMATOLOGY ORDERABLE S Performing Organization Address City/[facility]/ZIP Co de Phone Number [facility] [place] [address] documented in this encounter Visit Diagnoses Diagnosis Pre-op testing Preoperative examination, unspecified Renal cell carcinoma, unspecified laterality Drug-induced liver injury Autoimmune hepatitis documented in this encounter Care Teams Ecdis N Navigation Operator Relationship Specialty Start Date End Date Juan Dempsey MD [address] [place] [address] PCP - General Emergency Medicine 08/20/21 documented as of this encounter
--- OUTSIDE RECORDS SUMMARY | 2024-03-09 10:18 | XMS_ITS | Encounter Summary ---
Author Organization [facility] Address [facility] [place] [address] Care Team Providers Care Respiratory Care Practitioner Name Role Phone Juan Dempsey MD Primary Care Provider [phone] Encounter Details Date Type Department Care Team (Late st Contact Info) Description 01/07/2022 Orders Only [place] [address] Ana Pringle MD [facility] [place] [address] Drug-induced liver injury Social History Tobacco Use [...] [facility] Hematology Oncology [address] [place] [address] 03/29/2024 12:[address] [place] [address] Albino Bartholomew MD [facility] DR HEMATOLOGY [place] [address] 04/05/2024 10:00 AM EST Office Visit Hematology [place] [address] Albino Barhtolomew MD [facility] DR HEMATOLOGY [place] [address] documented as of this encounter Results * (ABNORMAL) Comprehensive metabolic panel (non-fasting) (02/04/2022 7:52 AM EDT) [facility] Glucose 104 65 - 199 mg/dL [facility] Comment:Diabetes: >=200 mg/d L plus symptoms Blood Urea Nitrogen 22(H) 10 - 20 mg/dL [facility] Creatinine 1.20 0.80 - 1.50 mg/dL [facility] Sodium 141 135 - 145 mmol/L [facility] Potassium 4.0 3.5 - 5.0 mmol/L [facility] Comment: Please note: ??Patients with WBC >100,000 may have falsely elevated Potassium levels. ??For accurate Potassium quantification in these patients send serum separator tube (gold top) for subsequent determinations. ??Contact the Clinical Chemistry Laboratory if there are any questions. Chloride 105 98 - 107 mmol/L [facility] Carbon Dioxide 29 22 - 31 mmol/L [facility] Anion Gap 7 5 - 15 mmol/L [facility] Calcium 9.3 8.5 - 10.5 mg/dL [facility] Protein, Total 6.7 6.1 - 8.0 g/dL [facility] Albumin 4.1 3.2 - 5.2 g/dL [facility] Aspartate Aminotransferase 18 0 - 39 unit/L [facility] Alanine Aminotransferase 24 0 - 55 unit/L [facility] Alkaline Phosphatase 92 40 - 130 unit/L [facility] Bilirubin, Total 0.3 0.2 - 1.3 mg/dL [facility] Est Glomerular Filtration Rate 67 >=60 mL/min/1. 73 m?? [facility] [...] In Lab Ana Pringle MD CHEMISTRY ORDERABLES [facility] [place] [address] documented in this encounter Visit Diagnoses Diagnosis Drug-induced liver injury documented in this encounter Care Teams Respiratory Care Practitioner Relationship Specialty Start Date End Date Juan Dempsey MD [address] [place] [address] PCP - General Emergency Medicine 08/20/21 documented as of this encounter
--- OUTSIDE RECORDS SUMMARY | 2024-03-09 10:18 | XMS_ITS | Encounter Summary ---
Author Organization [facility] Address [facility] [place] [address] Care Team Providers Care Fisher Name Role Phone Juan Dempsey MD Primary Care Provider [phone] Encounter Details Date Type Department Care Team (Late st Contact Info) Description 02/16/2022 Telephone Hematology [place] [address] Rose Mary Abarca [employer] AGENT ROOM Social History Tobacco Use Types Packs/Day [...] 02/16/2022 12:58 PM EDT Message received from secretary administrative assistant: [phone] Got a call from [employer] Wednesday night saying that the PA for his new meds was denied. He wasconfused because they said medicare, and he has BCBS Per demographics pt has a Managed Medicare BCBS Policy, per Specialty Pharmacy note insurance is [employer] [facility]. Spoke w/ pt, all his questions answered to his apparent satisfaction. He is aware clinic will likely appeal denial. documented in this encounter Plan of Treatment Upcoming Encounters Date Type Department Care Team (Late st Contact Info) Description 03/29/2024 10:30 AM EST Laboratory Appointment Lab [place] [facility] [place] [address] [place] [address] 03/29/2024 12:[address] [place] [address] Albino Bartholomew MD [facility] [place] [address] 04/05/2024 10:00 AM EST Office Visit Hematology [place] [address] Albino Bartholomew MD [facility] DR [place] [address] documented as of this encounter Visit Diagnoses Not on filedocumented in this encounter Care Teams Fisher Relationship Specialty Start Date End Date Juan Dempsey MD [address] [place] [address] PCP - General Emergency Medicine 08/20/21 documented as of this encounter
--- OUTSIDE RECORDS SUMMARY | 2024-03-09 10:18 | XMS_ITS | Encounter Summary ---
Author Organization [facility] Address [facility] [place] [address] Care Team Providers Care Trailer Driver Name Role Phone Juan Dempsey MD Primary Care Provider [phone] Encounter Details Date Type Department Care Team (Latest Contact Info) Description 02/04/2022 1:00 PM EDT - 02/04/2022 11:59 PM EDT Hospital Encounter XRay at [address] [place] [address] Rich Baldwin MD [facility] [place] [address] Discharge Disposition: Home Social History Tobacco Use [...] [facility] [place] Oncology [address] [place] [address] 03/29/2024 12:[address] [place] [place] [address] Albino Bartholomew MD [facility] DR [place] [address] 04/05/2024 10:00 AM EST Office Visit [place]ematology [place] [address] Albino Bartholomew MD [facility] [place] [address] documented as of this encounter Procedures Procedure [...] questions please contact the health career development coordinator that requested your imaging first. ? [...] have questions please contactthe health career development coordinator that requested your imaging first. Rich Baldwin MD IMG DX ORDERABLES documented in this encounter Visit Diagnoses Not on filedocumented in this encounter Care Teams Trailer Driver Relationship Specialty Start Date End Date Juan Dempsey MD [address] [place] [address] PCP - General Emergency Medicine 08/20/21 documented as of this encounter
--- OUTSIDE RECORDS SUMMARY | 2024-03-09 10:18 | XMS_ITS | Encounter Summary ---
Author Organization [facility] [place] [address] Care Team Providers Care Quality Control Chemist Name Role Phone Juan Dempsey MD Primary Care Provider [phone] Reason for Referral * Diagnostic Test (Routine) - Closed Specialty Diagnoses / Procedures Referred By Contac t Referred To Contact Radiology Diagnoses History of renal cell carcinoma Incidental lung nodule, > 3mm and < 8mm Procedures CT Chest wo Contrast (Generic) Kelin Carlos APRN [address] [place] [address] [place] [address] [facility] [place] [address] Referral ID Status Reason Start Date Expiration Date V isits Requested Visits Authorized [id number] Closed Specialty Service Requested 11/28/2021 05/31/2023 1 1 Reason for Visit * Diagnostic Test (Routine) - Closed Specialty Diagnoses / Procedures Referred By Contac t Referred To Contact Radiology Diagnoses History of renal cell carcinoma Incidental lung nodule, > 3mm and < 8mm Procedures CT Chest wo Contrast (Generic) Kelin Carlos APRN [address] [place] [address] [place] [address] [facility] [place] [address] Referral ID Status Reason Start Date Expiration Date V isits Requested Visits Authorized [id number] Closed Specialty Service Requested 11/28/2021 05/31/2023 1 1 Encounter Details Date Type Department Care Team (Latest Contact Info) Description 01/15/2022 9:54 AM EDT - 01/15/2022 11:59 PM EDT Hospital Encounter CT Scan at [facility] [place] [address] Kelin Carlos, SENIOR RADIATION THERAPIST [address] [place] [address] DR HEMATOLOGY AND ONCOLOGY [place], [place] [id number] History of renal cell carcinoma; Incidental lung [...] [facility] [place] [place] [address] [place] [address] 03/29/2024 12:[address] [place] [address] Albino Bartholomew MD [facility] [place] [address] 04/05/2024 10:00 AM EST Office Visit Hematology [place] [address] Albino Bartholomew MD [facility] [place] [address] documented as of this encounter Procedures Procedure [...] have questions please contact the health daycare provider that requested your imaging first. ? Electronically signed by: Mady Early MD, [facility] ([phone]), at 01/15/2022 3:57 PM Narrative 01/15/2022 3:57 PM EDT EXAMINATION: CT [...] lobe subpleural nodules (series 4 image 107 [id number]). Stable tiny right apical nodule. Airways: Central [...] patients who have questions please contactthe health daycare provider that requested your imaging first. Electronically signed by: Mady Early MD, [facility]([phone]), at 01/15/2022 3:57 PM Kelin Carlos SENIOR RADIATION THERAPIST IMG CT ORDERABLES documented in this encounter Visit Diagnoses Diagnosis History of renal cell carcinoma Incidental lung nodule, > 3mm and < 8mm Solitary pulmonary nodule documented in this encounter Care Teams Quality Control Chemist Relationship Specialty Start Date End Date Juan Dempsey MD [address] [place] [address] PCP - General Emergency Medicine 08/20/21 documented as of this encounter
--- OUTSIDE RECORDS SUMMARY | 2024-03-09 10:19 | XMS_ITS | Encounter Summary ---
Author Organization [facility] Address [facility] [place] [address] Care Team Providers Care Senior Enterprise Architect Name Role Phone Juan Dempsey MD Primary Care Provider [phone] Encounter Details Date Type Department Care Team (Late st Contact Info) Description 11/04/2021 External Results [place] [address] Gilson Tobar RN Social History Tobacco Use [...] [facility] [place] Oncology [address] [place] [address] 03/29/2024 12:[address] [place] [place] [address] Albino Bartholomew MD [facility] DR HEMATOLOGY [place] [address] 04/05/2024 10:00 AM EST Office Visit [place] [address] Albino Bartholomew MD [facility] DR HEMATOLOGY [place] [address] documented as of this encounter Procedures Procedure Name Priority Date/Time Associated Diagnosis Comments EXTERNAL LAB CBC CMP THYROID RESULTS PANEL Routine 11/04/2021 documented in this encounter Results * (ABNORMAL) CBC / CMP / Thyroid External Results (11/04/2021) Sodium 141 MANOJ RN [facility] Potassium 3.7 MANOJ RN [facility] Chloride 105 MANOJ RN [facility] Carbon Dioxide 29 [facility] Blood Urea Nitrogen 28(H) [facility] Creatinine 1.4(H) [facility] Est Glomerular Filtration Rate 50.70 [facility] Glucose 156(H) [facility] Calcium 8.7 [facility] Protein, Total 6.3(L) [facility] Albumin 3.0 [facility] RN [facility] Bilirubin, Total 0.6 [facility] Alkaline Phosphatase 90 [facility] Aspartate Aminotransferase 27 [facility] Alanine Aminotransferase 80(H) [facility] 11/04/2021 Historical Provider EXTERNAL LAB SUNITHA SERRANO Performing Organization Address City/State/[facility] Co de Phone Number [address] [place], [place] [phone] [place] [address] documented in this encounter Visit Diagnoses Not on filedocumented in this encounter Care Teams Senior Enterprise Architect Relationship Specialty Start Date End Date Juan Dempsey MD [address] [place] [address] PCP - General Emergency Medicine 08/20/21 documented as of this encounter
--- OUTSIDE RECORDS SUMMARY | 2024-03-09 10:19 | XMS_ITS | Encounter Summary ---
Author Organization [facility] Address [facility] [place] [address] Care Team Providers Care Rib Knitter Name Role Phone Juan Dempsey MD Primary Care Provider [phone] Encounter Details Date Type Department Care Team (Late st Contact Info) Description 10/16/2021 Telephone Hematology [place] [address] Daxa Arriola RN Social History [...] 8:03 AM EDT Message received from clinical senior hr manager: labs in! Message received from provider: Nursing: will continue weekly CMP for f/u on liver function and Cr at [facility] Prednisone taper weekly if LFTs are [...] [facility] [place] On[place] [address] [place] [address] 03/29/2024 12:[address] [place] [address] Albino Bartholomew MD [facility] DR HEMATOLOGY [place] [address] 04/05/2024 10:00 AM EST Office Visit Hematology [place] [address] Albino Bartholomew MD [facility] DR HEMATOLOGY [place] [address] documented as of this encounter Visit Diagnoses Not on filedocumented in this encounter Care Teams Rib Knitter Relationship Specialty Start Date End Date Juan Dempsey MD [address] [place] [address] PCP - General Emergency Medicine 08/20/21 documented as of this encounter
--- OUTSIDE RECORDS SUMMARY | 2024-03-09 10:19 | XMS_ITS | Encounter Summary ---
Author Organization [facility] Address [facility] [place] [address] Care Team Providers Care Cake Icer And Packer Name Role Phone Juan Dempsey MD Primary Care Provider [phone] Reason for Referral * Diagnostic Test (Routine) - Closed Specialty Diagnoses / Procedures Referred By Contac t Referred To Contact Diagnoses Renal mass Procedures CT Chest wo Contrast (Generic) Jordan Hou MD [facility] [place] [address] Referral ID Status Reason Start Date Expiration Date V isits Requested Visits Authorized [id number] Closed Specialty Service Requested 05/26/2021 11/23/2022 1 1 Reason for Visit * Diagnostic Test (Routine) - Closed Specialty Diagnoses / Procedures Referred By Contac t Referred To Contact Diagnoses Renal mass Procedures CT Chest wo Contrast (Generic) Jordan Hou MD [facility] [place] [address] Referral ID Status Reason Start Date Expiration Date V isits Requested Visits Authorized [id number] Closed Specialty Service Requested 05/26/2021 11/23/2022 1 1 Encounter Details Date Type Department Care Team (Latest Contact Info) Description 10/16/2021 12:37 PM EDT - 10/16/2021 11:59 PM EDT Hospital Encounter CT Scan [place] [facility] [address] Jordan Hou MD [facility] [place] [place] [address] Renal mass Discharge Disposition: Home Social History [...] [facility] Hematology Oncology [address] [place] [address] 03/29/2024 12:[address] [place] [place] [address] Albino Bartholomew MD [facility] DR HEMATOLOGY [place] [address] 04/05/2024 10:00 AM EST Office Visit [place]ology [place] [address] Albino Bartholomew MD [facility] DR HEMATOLOGY [place] [address] documented as of this encounter Procedures Procedure [...] have questions please contact the health career information specialist that requested your imaging first. ? Electronically signed by: Jaja Hamilton MD, [facility] ([phone]), at 10/16/2021 4:28 PM Narrative 10/16/2021 4:28 PM EDT EXAMINATION: CT [...] ureter documented in this encounter Care Teams Cake Icer And Packer Relationship Specialty Start Date End Date Juan Dempsey MD [address] [place] [address] PCP - General Emergency Medicine 08/20/21 documented as of this encounter
--- OUTSIDE RECORDS SUMMARY | 2024-03-09 10:19 | XMS_ITS | Encounter Summary ---
Author Organization [facility] Address [facility] [place] [address] Care Team Providers Care Police Patrol Lieutenant Name Role Phone Juan Dempsey MD Primary Care Provider [phone] Encounter Details Date Type Department Care Team (Late st Contact Info) Description 10/20/2021 Telephone Hematology [place] [address] Daxa Arriola RN Social History [...] 10:41 AM EDT Message received from clinical ward secretary: [phone] Reports 100.8 fever last night, down to [...] no change to range of motion or sap technical developer, joints in hands are slightly sore. Left [...] to nearest ED for evaluation. Pt at [facility] ED for doppler as advised by PCP. documented in this encounter Plan of Treatment Upcoming Encounters Date Type Department Care Team (Late st Contact Info) Description 03/29/2024 10:30 AM EST Laboratory Appointment Lab at [facility] Hematology Oncology [address] [place] [address] 03/29/2024 12:[address] [place] [place] [address] Albino Bartholomew MD [facility] DR [place] [address] 04/05/2024 10:00 AM EST Office Visit [place]ematology [place] [address] Albino Bartholomew MD [facility] DR [place] [address] documented as of this encounter Visit Diagnoses Not on filedocumented in this encounter Care Teams Police Patrol Lieutenant Relationship Specialty Start Date End Date Juan Dempsey MD [address] [place] [address] PCP - General Emergency Medicine 08/20/21 documented as of this encounter
--- OUTSIDE RECORDS SUMMARY | 2024-03-09 10:19 | XMS_ITS | Encounter Summary ---
[place] [address] Care Team Providers Care Avionics Shop Supervisor Name Role Phone Juan Dempsey MD Primary Care Provider [phone] Reason for Referral * Consultation (Routine) - Closed Specialty Diagnoses / Procedures Referred By Burak mcnair Referred To Contact Hematology and Oncology Diagnoses Family history of melanoma History of renal carcinoma Oli Winter MD [address] [facility] [place] [address] [facility] [address] [place] [address] Referral ID Status Reason Start Date Expiration Date V isits Requested Visits Authorized [id number] Closed Consult, Test & Treat 10/28/2021 10/28/2022 1 1 Reason for Visit * Reason Comments Skin Check Encounter Details Date Type Department Care Team (Late st Contact Info) Description 10/28/2021 8:45 AM EDT Office Visit Dermatology at [facility] [address] [place] [address] Oli Winter MD [address] [place] [address] Rodríguez angioma; SK (seborrheic keratosis); Multiple benign [...] Oli Winter MD FAAD at Dermatology at [facility] Patient's preferred name Cristofer Preferred contact method [...] laser therapy. Cosmetic treatment and therefore, likely [id number] expense. Handout given. Answered all questions. Patient [...] unless symptoms develop. Treatment considered cosmetic and [id number]. Treatment options, including but not limited to [...] dermatitis. [] Recall placed [x] Forwarded to procurement technician [] Patient scheduled before exiting Scribe attestation: NAVEEN ANGLEO LPN has performed the documentation for this encounter in the presence of and acting as a scribe for MD LEONEL Leal. I performed the above scribed service and agree with the accuracy of the documentation in this encounter. Reviewed and signed by: MD LEONEL Leal Dermatology [facility] documented in this encounter Plan of Treatment Upcoming Encounters Date Type Department Care Team (Late st Contact Info) Description 03/29/2024 10:30 AM EST Laboratory Appointment Lab at [facility] Hematology Oncology [address] [place] [address] 03/29/2024 12:[address] [place] [address] Albino Bartholomew MD [facility] DR [place] [address] 04/05/2024 10:00 AM EST Office Visit [place] [address] Albino Bartholomew MD [facility] DR [place] [address] Scheduled Referrals Name Type Priority Associated Diagnoses [...] neoplasm documented in this encounter Care Teams Avionics Shop Supervisor Relationship Specialty Start Date End Date Juan Dempsey MD [address] [place] [address] PCP - General Emergency Medicine 08/20/21 documented as of this encounter
--- OUTSIDE RECORDS SUMMARY | 2024-03-09 10:19 | XMS_ITS | Encounter Summary ---
Author Organization [facility] Address [facility] [place] [address] Care Team Providers Care Administrative Liaison Name Role Phone Juan Dempsey MD Primary Care Provider [phone] Reason for Visit * Reason Comments Follow-up Encounter Details Date Type Department Care Team (Late st Contact Info) Description 10/08/2021 2:00 PM EDT Office Visit Hematology [place] [address] Albino Bartholomew MD [facility] [address] [place] [address] Kelin Carlos, [address] HEMATOLOGY AND ONCOLOGY [place], [place] [address] Renal cell carcinoma, unspecified laterality (Primary Dx); [...] from the original note were not included. 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 We'll send orders and I'll ask our manager social media to f/u on results. Advised pt to [...] week, then stop - CMP weekly at [facility] in 3 weeks for labs and clinic visit. The plan was discussed with the patient in details. All questions were answered to patient/ documented in this encounter Plan of Treatment Upcoming Encounters Date Type Department Care Team (Late st Contact Info) Description 03/29/2024 10:30 AM EST Laboratory Appointment Lab at [facility] [place] [address] [place] [address] 03/29/2024 12:[address] [place] [address] [facility] [place] [address] 04/05/2024 10:00 AM EST Office Visit Hematology [place] [address] [facility] [address] [place] [address] Scheduled Orders Name Type Priority Associated Diagnoses [...] EST) Glucose 122 65 - 199 mg/dL [facility] Comment:Diabetes: >=200 mg/d L plus symptoms Blood Urea Nitrogen 30(H) 10 - 20 mg/dL [facility] Creatinine 1.77(H) 0.80 - 1.50 mg/dL [facility] Sodium 138 135 - 145 mmol/L [facility] Potassium 3.8 3.5 - 5.0 mmol/L [facility] Comment: Please note: ??Patients with WBC >100,000 may have falsely elevated Potassium levels. ??For accurate Potassium quantification in these patients send serum separator tube (gold top) for subsequent determinations. ??Contact the Clinical Chemistry Laboratory if there are any questions. Chloride 103 98 - 107 mmol/L [facility] Carbon Dioxide 25 22 - 31 mmol/L [facility] Anion Gap 10 5 - 15 mmol/L [facility] Calcium 9.0 8.5 - 10.5 mg/dL [facility] Protein, Total 7.0 6.1 - 8.0 g/dL [facility] Albumin 3.7 3.2 - 5.2 g/dL [facility] Aspartate Aminotransferase 50(H) 0 - 39 unit/L [facility] Alanine Aminotransferase 92(H) 0 - 55 unit/L [facility] Alkaline Phosphatase 155(H) 40 - 130 unit/L [facility] Bilirubin, Total 0.5 0.2 - 1.3 mg/dL [facility] Est Glomerular Filtration Rate 42(L) >=60 mL/min/1. 73 m?? [facility] Comment: This patient's estimated GFR was [...] Albino Bartholomew MD CHEMISTRY ORDERABLES [facility] [place] [address] * (ABNORMAL) Comprehensive metabolic panel (non-fasting) (10/28/2021 9:41 AM EDT) Glucose 130 65 - 199 mg/dL [facility] Comment:Diabetes: >=200 mg/d L plus symptoms Blood Urea Nitrogen 22(H) 10 - 20 mg/dL [facility] Creatinine 1.25 0.80 - 1.50 mg/dL [facility] Sodium 139 135 - 145 mmol/L [facility] Potassium 4.1 3.5 - 5.0 mmol/L [facility] [...] mmol/L [facility] Anion Gap 5 5 - 15 mmol/L [facility] Calcium 9.0 8.5 - 10.5 mg/dL [facility] Protein, Total 6.0(L) 6.1 - 8.0 g/dL [facility] Albumin 3.8 3.2 - 5.2 g/dL [facility] Aspartate Aminotransferase 44(H) 0 - 39 unit/L [facility] Alanine Aminotransferase 157(H) 0 - 55 unit/L [facility] Alkaline Phosphatase 102 40 - 130 unit/L [facility] Bilirubin, Total 0.5 0.2 - 1.3 mg/dL [facility] Est Glomerular Filtration Rate 64 >=60 mL/min/1. 73 m?? [facility] [...] In Lab Albino Bartholomew MD CHEMISTRY ORDERABLES [facility] [place] [address] documented in this encounter Visit Diagnoses Diagnosis Renal cell carcinoma, unspecified laterality- Primary Elevated LFTs Other abnormal blood chemistry documented in this encounter Care Teams Administrative Liaison Relationship Specialty Start Date End Date Juan Dempsey MD [address] [place] [address] PCP - General Emergency Medicine 08/20/21 documented as of this encounter
--- OUTSIDE RECORDS SUMMARY | 2024-03-09 10:19 | XMS_ITS | Encounter Summary ---
Author Organization [facility] Address [facility] [address] Care Team Providers Care Bagger Meat Name Role Phone Juan Dempsey MD Primary Care Provider [phone] Encounter Details Date Type Department Care Team (Latest Contact Info) Description 10/28/2021 9:30 AM EDT Laboratory Appointment Lab at [facility] [address] [place] [address] Renal cell carcinoma, unspecified laterality [...] [facility] H[facility] Oncology [address] [place] [address] 03/29/2024 12:[address] [place] [address] Albino Bartholomew MD [facility] DR [place] [address] 04/05/2024 10:00 AM EST Office Visit Hematology [place] [address] Albino Bartholomew MD [facility] DR [place] [address] documented as of this encounter Procedures Procedure [...] 9:41 AM EDT) Neutrophil % 77.2 % [facility] Neutrophil Absolute 7.15(H) 1.70 - 6.10 x10(3)/mc L [facility] Lymph % 11.8 % [facility] Lymphocytes Abs 1.1 0.9 - 3.2 x10(3)/mc L [facility] Monocyte % 5.2 % [facility] Monocyte Abs 0.5 0.3 - 0.9 x10(3)/ L [facility] Eos % 0.2 % [facility] Eosinophils Abs 0.0 0.0 - 0.4 x10(3)/mc L [facility] Basophil % 0.6 % [facility] Baso Absolute 0.1 0.0 - 0.1 x10(3)/mc L [facility] Immature Gran % 5.00 % [facility] Comment: Immature granulocytes(IG's)percentage and absolute count will include metamyelocytes, myelocytes, and promyelocytes. Blood smears from CBCs yielding IG's will be scanned manually for concordance. If this scan disagrees with the automated IG or if promyelocytes are noted, a manual differential will be performed. Immature Gran Absolute 0.46(H) 0.00 - 0.04 x10(3)/mc L [facility] Blood 10/28/2021 9:41 AM EDT 10/28/2021 12:45 PM EDT Narrative Resulting Agency Comment Spec In Lab Albino Bartholomew MD HEMATOLOGY ORDERABLE S [facility] [place] [id number] * (ABNORMAL) Hemogram (10/28/2021 9:41 AM EDT) [facility] White Blood Cell 9.3 4.0 - 9.5 x10(3)/[facility] Red Blood Cell 4.37(L) 4.58 - 5.54 x10(6)/[facility] Hemoglobin 12.2(L) 13.7 - 16.5 g/dL [facility] Hematocrit 38.4(L) 40.5 - 48.5 % [facility] Mean Cell Volume 87.9 82.9 - 93.1 [facility] Mean Cell Hemoglobin 27.9 27.5 - 32.1 pg [facility] Mean Cell Hemoglobin Concentration 31.8(L) 32.0 - 35.7 g/dL [facility] Platelet 275 145 - 357 x10(3)/[facility] RDW Standard Deviation 53.2(H) 36.0 - 45.0 [facility] RDW coefficient of variation 16.6(H) 11.4 - 13.8 % [facility] Mean Platelet Volume 9.7 7.6 - 12.9 [facility] NRBC% auto 0.0 % [facility] NRBC Absolute 0.000 0.000 - 0.000 x10(3)/[facility] Blood 10/28/2021 9:41 AM EDT 10/28/2021 12:45 PM EDT Narrative Resulting Agency Comment Spec In Lab Albino Bartholomew MD HEMATOLOGY ORDERABLE S [facility] [place] [address] * (ABNORMAL) Comprehensive metabolic panel (non-fasting) (10/28/2021 9:41 AM EDT) [facility] Glucose 130 65 - 199 mg/dL [facility] Comment:Diabetes: >=200 mg/d L plus symptoms Blood Urea Nitrogen 22(H) 10 - 20 mg/dL [facility] Creatinine 1.25 0.80 - 1.50 mg/dL [facility] Sodium 139 135 - 145 mmol/L [facility] Potassium 4.1 3.5 - 5.0 mmol/L [facility] Comment: Please note: ??Patients with WBC >100,000 may have falsely elevated Potassium levels. ??For accurate Potassium quantification in these patients send serum separator tube (gold top) for subsequent determinations. ??Contact the Clinical Chemistry Laboratory if there are any questions. Chloride 105 98 - 107 mmol/L [facility] Carbon Dioxide 29 22 - 31 mmol/L [facility] Anion Gap 5 5 - 15 mmol/L [facility] Calcium 9.0 8.5 - 10.5 mg/dL [facility] Protein, Total 6.0(L) 6.1 - 8.0 g/dL [facility] Albumin 3.8 3.2 - 5.2 g/dL [facility] Aspartate Aminotransferase 44(H) 0 - 39 unit/L [facility] Alanine Aminotransferase 157(H) 0 - 55 unit/L [facility] Alkaline Phosphatase 102 40 - 130 unit/L [facility] Bilirubin, Total 0.5 0.2 - 1.3 mg/dL [facility] Est Glomerular Filtration Rate 64 >=60 mL/min/1. 73 m?? [facility] [...] Bartholomew MD CHEMISTRY ORDERABLES Performing Organization Address City/State/[facility] Co de Phone Number [facility] [place] [address] documented in this encounter Visit Diagnoses Diagnosis Renal cell carcinoma, unspecified laterality documented in this encounter Care Teams Bagger Meat Relationship Specialty Start Date End Date Juan Dempsey MD [address] [place] [address] PCP - General Emergency Medicine 08/20/21 documented as of this encounter
--- OUTSIDE RECORDS SUMMARY | 2024-03-09 10:19 | XMS_ITS | Encounter Summary ---
Author Organization [place] [address] Care Team Providers Care Sales Associate Key Holder Name Role Phone Juan Dempsey MD Primary Care Provider [phone] Reason for Referral * Diagnostic Test (Routine) - Closed Specialty Diagnoses / Procedures Referred By Contac t Referred To Contact Radiology Diagnoses Renal cell carcinoma, unspecified laterality Procedures MRI Abdomen wwo Contrast (Generic) Jordan Hou MD [facility] [place] [address] [place] [address] Referral ID Status Reason Start Date Expiration Date V isits Requested Visits Authorized [id number] Closed Specialty Service Requested 10/21/2021 04/22/2023 1 1 Reason for Visit * Diagnostic Test (Routine) - Closed Specialty Diagnoses / Procedures Referred By Contjuan t Referred To Contact Radiology Diagnoses Renal cell carcinoma, unspecified laterality Procedures MRI Abdomen wwo Contrast (Generic) Jordan Hou MD [facility] [place] [address] [place] [address] Referral ID Status Reason Start Date Expiration Date V isits Requested Visits Authorized [id number] Closed Specialty Service Requested 10/21/2021 04/22/2023 1 1 Encounter Details Date Type Department Care Team (Latest Contact Info) Description 11/07/2021 7:10 PM EDT - 11/07/2021 11:59 PM EDT Hospital Encounter MRI at [facility] [place] [address] Jordan Hou MD [facility] [place] [address] Renal cell carcinoma, unspecified laterality [...] [facility] [place] [place] [address] [place] [address] 03/29/2024 12:[address] [place] [place] [address] Albino Bartholomew MD [facility] HEMATOLOGY [place] [address] 04/05/2024 10:00 AM EST Office Visit H[place]ology [place] [address] Albino Bartholomew MD [facility] HEMATOLOGY [place] [address] documented as of this encounter Procedures Procedure [...] who have questions please contact the health long term care phlebotomist that requested your imaging first. ? Narrative 11/08/2021 10:06 AM EDT EXAMINATION: MRI [...] patients who have questions please contactthe health long term care phlebotomist that requested your imaging first. Jordan Hou MD [facility] [place] documented in this encounter Visit [...] mLs documented in this encounter Care Teams Sales Associate Key Holder Relationship Specialty Start Date End Date Dege, Juan E, MD [address] [place] [address] PCP - General Emergency Medicine 08/20/21 documented as of this encounter
--- OUTSIDE RECORDS SUMMARY | 2024-03-09 10:19 | XMS_ITS | Encounter Summary ---
Author Organization [facility] Address [facility] [place] [address] Care Team Providers Care Compliance Attorney Name Role Phone Juan Dempsey MD Primary Care Provider [phone] Encounter Details Date Type Department Care Team (Late st Contact Info) Description 10/16/2021 Orders Only Urology at [facility] [place] [address] Jordan Hou MD [facility] [place] [address] Renal cell carcinoma, unspecified laterality Social History [...] at [facility] [place] On[place] [address] [place] [address] 03/29/2024 12:[address] [place] [phone] Albino Bartholomew MD [facility] DR HEMATOLOGY [place] [address] 04/05/2024 10:00 AM EST Office Visit Hematology [place] [address] Albino Barthoolmew MD [facility] DR HEMATOLOGY [place] [address] documented as of this encounter Results * (ABNORMAL) Basic Metabolic Panel (non-fasting) (10/16/2021 12:08 PM EDT) [facility] Glucose 128 65 - 199 mg/dL [facility] Comment:Diabetes: >=200 mg/d L plus symptoms Blood Urea Nitrogen 25(H) 10 - 20 mg/dL [facility] Creatinine 1.62(H) 0.80 - 1.50 mg/dL [facility] Sodium 136 135 - 145 mmol/L [facility] Potassium 4.7 3.5 - 5.0 mmol/L [facility] Comment: Please note: ??Patients with WBC >100,000 may have falsely elevated Potassium levels. ??For accurate Potassium quantification in these patients send serum separator tube (gold top) for subsequent determinations. ??Contact the Clinical Chemistry Laboratory if there are any questions. Chloride 101 98 - 107 mmol/L [facility] Carbon Dioxide 25 22 - 31 mmol/L [facility] Anion Gap 10 5 - 15 mmol/L [facility] Calcium 8.7 8.5 - 10.5 mg/dL [facility] Est Glomerular Filtration Rate 47(L) >=60 mL/min/1. 73 m?? [facility] [...] Lab Jordan Hou MD CHEMISTRY ORDERABL ES [facility] [place] [address] documented in this encounter Visit Diagnoses Diagnosis Renal cell carcinoma, unspecified laterality documented in this encounter Care Teams Compliance Attorney Relationship Specialty Start Date End Date Juan Dempsey MD [address] [place] [address] PCP - General Emergency Medicine 08/20/21 documented as of this encounter
--- OUTSIDE RECORDS SUMMARY | 2024-03-09 10:19 | XMS_ITS | Encounter Summary ---
Author Organization [facility] Address [facility] [place] [address] Care Team Providers Care Escrow Processor Name Role Phone Juan Dempsey MD Primary Care Provider [phone] Encounter Details Date Type Department Care Team (Late st Contact Info) Description 11/19/2021 Orders [place] [address] Ana Pringle MD [facility] [place] [address] Drug-induced hepatitis Social History Tobacco Use Types [...] [facility] Hematology Oncology [address] [place] [address] 03/29/2024 12:[address] [place] [place] [phone] Albino Bartholomew MD [facility] DR [place] [address] 04/05/2024 10:00 AM EST Office Visit [place]ematology [place] [address] Albino Bartholomew MD [facility] [place] [address] documented as of this encounter Visit Diagnoses Diagnosis Drug-induced hepatitis Hepatitis, unspecified documented in this encounter Care Teams Escrow Processor Relationship Specialty Start Date End Date Juan Dempsey MD [address] [place] [address] PCP - General Emergency Medicine 08/20/21 documented as of this encounter
--- OUTSIDE RECORDS SUMMARY | 2024-03-09 10:19 | XMS_ITS | Encounter Summary ---
Author Organization [facility] Address [facility] [place] [address] Care Team Providers Care Choir Member Name Role Phone Juan Dempsey MD Primary Care Provider [phone] Reason for Visit * Reason Comments Follow-up Encounter Details Date Type Department Care Team (Late st Contact Info) Description 11/26/2021 10:30 AM EDT Office Visit Hematology [place] [address] Albino Bartholomew MD [facility] DR HEMATOLOGY [place] [address] Kelin Carlos, [address] HEMATOLOGY AND ONCOLOGY [place], [place] [id number] Renal cell carcinoma, unspecified laterality; Chronic deep [...] from the original note were not included. [facility] Oncology - Follow Up Visit History of [...] History: Cristofer returns for f/u on kidney cancer. 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 Advised pt [...] AM EST Laboratory Appointment Lab at [facility] [place] [address] [place] [address] 03/29/2024 12:[address] [place] [address] Albino Bartholomew MD [facility] HEMATOLOGY [place] [address] 04/05/2024 10:00 AM EST Office Visit [place]ematology [place] [address] Albino Bartholomew MD [facility] [place]EMATOLOGY [place] [address] documented as of this encounter Visit Diagnoses Diagnosis Renal cell carcinoma, unspecified laterality 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
--- OUTSIDE RECORDS SUMMARY | 2024-03-09 10:19 | XMS_ITS | Encounter Summary ---
Author Organization [facility] Address [facility] [place] [address] Care Team Providers Care Director Of Capital Giving Name Role Phone Juan Dempsey MD Primary Care Provider [phone] Encounter Details Date Type Department Care Team (Late st Contact Info) Description 10/23/2021 Telephone Hematology [place] [address] Daxa Arriola RN Social History [...] 8:56 AM EDT Message received from clinical executive secretary: [phone] - patient called - had bloodwork done [...] [facility] Hematology Oncology [address] [place] [address] 03/29/2024 12:[address] [place] [address] Albino Bartholomew MD [facility] DR HEMATOLOGY [place] [address] 04/05/2024 10:00 AM EST Office Visit [place]ematology [place] [address] Albino Bartholomew MD [facility] DR HEMATOLOGY [place] [address] documented as of this encounter Visit Diagnoses Not on filedocumented in this encounter Care Teams Director Of Capital Giving Relationship Specialty Start Date End Date uJan Dempsey MD [address] [place] [address] PCP - General Emergency Medicine 08/20/21 documented as of this encounter
--- OUTSIDE RECORDS SUMMARY | 2024-03-09 10:19 | XMS_ITS | Encounter Summary ---
Author Organization [facility] Address [facility] [place] [address] Care Team Providers Care In Flight Refueling Manager Name Role Phone Juan Dempsey MD Primary Care Provider [phone] Encounter Details Date Type Department Care Team (Latest Contact Info) Description 11/26/2021 9:05 AM EDT - 11/26/2021 11:59 PM EDT Hospital Encounter [place]ematology [place] [address] Drug-induced hepatitis; Autoimmune hepatitis; Renal cell carcinoma, [...] 10:30 AM EST Laboratory Appointment Lab at [facility] Hematology Oncology [address] [place] [address] 03/29/2024 12:[address] [place] [place] [address] Albino Bartholomew MD [facility] [address] [place] [address] 04/05/2024 10:00 AM EST Office Visit Hematology and Oncology at [facility] [place] [address] Albino Bartholomew MD [facility] [place] [address] Scheduled Orders Name Type Priority Associated Diagnoses [...] Bilirubin, Direct 0.1 0.0 - 0.3 mg/dL [facility] Blood 11/26/2021 9:13 AM EDT 11/26/2021 9:24 AM EDT Narrative Resulting Agency Comment Spec In Lab Ana Pringle MD CHEMISTRY ORDERABLES [facility] [place] [address] * (ABNORMAL) Differential, Automated (11/26/2021 9:13 AM EDT) [facility] Neutrophil % 78.4 % [facility] Neutrophil Absolute 6.67(H) 1.70 - 6.10 x10(3)/mc L [facility] Lymph % 15.3 % [facility] Lymphocytes Abs 1.3 0.9 - 3.2 x10(3)/mc L [facility] Monocyte % 2.6 % [facility] Monocyte Abs 0.2(L) 0.3 - 0.9 x10(3)/ L [facility] Eos % 1.9 % [facility] Eosinophils Abs 0.2 0.0 - 0.4 x10(3)/mc L [facility] Basophil % 1.1 % [facility] Baso Absolute 0.1 0.0 - 0.1 x10(3)/mc L [facility] Immature Gran % 0.70 % [facility] Comment: Immature granulocytes(IG's)percentage and absolute count will include metamyelocytes, myelocytes, and promyelocytes. Blood smears from CBCs yielding IG's will be scanned manually for concordance. If this scan disagrees with the automated IG or if promyelocytes are noted, a manual differential will be performed. Immature Gran Absolute 0.06(H) 0.00 - 0.04 x10(3)/mc L [facility] Blood 11/26/2021 9:13 AM EDT 11/26/2021 9:24 AM EDT Narrative Resulting Agency Comment Spec In Lab Kelin Carlos APRN HEMATOLOGY ORDERAB LES Performing Organization Address City/State/[facility] Co de Phone Number [facility] [place] [address] * (ABNORMAL) Hemogram (11/26/2021 9:13 AM EDT) White Blood Cell 8.5 4.0 - 9.5 x10(3)/mc L [facility] Red Blood Cell 5.07 4.58 - 5.54 x10(6)/mc L [facility] Hemoglobin 14.6 13.7 - 16.5 g/dL [facility] Hematocrit 45.9 40.5 - 48.5 % [facility] Mean Cell Volume 90.5 82.9 - 93.1 fL [facility] Mean Cell Hemoglobin 28.8 27.5 - 32.1 pg [facility] Mean Cell Hemoglobin Concentration 31.8(L) 32.0 - 35.7 g/dL [facility] Platelet 213 145 - 357 x10(3)/mc L [facility] RDW Standard Deviation 51.2(H) 36.0 - 45.0 fL [facility] RDW coefficient of variation 15.5(H) 11.4 - 13.8 % [facility] Mean Platelet Volume 9.4 7.6 - 12.9 fL [facility] NRBC% auto 0.0 % [facility] NRBC Absolute 0.000 0.000 - 0.000 x10(3)/mc L [facility] Blood 11/26/2021 9:13 AM EDT 11/26/2021 9:24 AM EDT Narrative Resulting Agency Comment Spec In Lab Kelin P Carlos ALTO SINGER HEMATOLOGY ORDERAB LES [facility] [place] [address] * (ABNORMAL) Comprehensive metabolic panel (non-fasting) (11/26/2021 9:13 AM EDT) Glucose 184 65 - 199 mg/dL [facility] Comment:Diabetes: >=200 mg/d L plus symptoms Blood Urea Nitrogen 25(H) 10 - 20 mg/dL [facility] Creatinine 1.37 0.80 - 1.50 mg/dL [facility] Sodium 141 135 - 145 mmol/L [facility] Potassium 3.6 3.5 - 5.0 mmol/L [facility] Comment: Please note: ??Patients with WBC >100,000 may have falsely elevated Potassium levels. ??For accurate Potassium quantification in these patients send serum separator tube (gold top) for subsequent determinations. ??Contact the Clinical Chemistry Laboratory if there are any questions. Chloride 104 98 - 107 mmol/L [facility] Carbon Dioxide 28 22 - 31 mmol/L [facility] Anion Gap 9 5 - 15 mmol/L [facility] Calcium 9.3 8.5 - 10.5 mg/dL [facility] Protein, Total 6.5 6.1 - 8.0 g/dL [facility] Albumin 4.2 3.2 - 5.2 g/dL [facility] Aspartate Aminotransferase 17 0 - 39 unit/L [facility] Alanine Aminotransferase 28 0 - 55 unit/L [facility] Alkaline Phosphatase 95 40 - 130 unit/L [facility] Bilirubin, Total 0.5 0.2 - 1.3 mg/dL [facility] Est Glomerular Filtration Rate 57(L) >=60 mL/min/1. 73 m?? [facility] [...] APRN CHEMISTRY ORDERABL ES Performing Organization Address [facility] Co de Phone Number [facility] [place] [address] * IgG (11/26/2021 9:13 AM EDT) Immunoglobulin G 992 700 - 1,600 mg/dL [facility] Comment: Pediatric Reference Intervals obtained from the [employer] Reference Interval project. http://www.[employer].ca/caliperproject/index.html Blood 11/26/2021 9:13 AM EDT 11/26/2021 9:24 AM EDT Narrative Resulting Agency Comment Spec In Lab Ana Pringle MD CHEMISTRY ORDERABLES Performing Organization Address [facility] Co de Phone Number [facility] [place] [address] * Smooth Muscle Antibody (11/26/2021 9:13 AM EDT) Sm Muscle Ab (MAY) Negative Negative [facility] Comment: Negative: No further testing will be performed ADDITIONAL INFORMATION This test was developed and its performance characteristics determined by [facility] in a manner consistent with CLIA requirements. This test has not been cleared or approved by the U.S. Food and Drug Administration. Test Performed by: [facility] [address] [place] [address] [employer] Superintendent: Dominick Jara M.D. Ph.D.; CLIA# [id number] Blood 11/26/2021 9:13 AM EDT 11/26/2021 1:12 PM EDT Narrative Resulting Agency Comment Spec In Lab Ana Pringle MD LAB SEND OUT ORDERAB LES Performing Organization Address City/State/[facility] Co de Phone Number [facility] [place] [address] documented in this encounter Visit Diagnoses Diagnosis Drug-induced hepatitis Hepatitis, unspecified Autoimmune hepatitis Renal cell carcinoma, unspecified laterality Elevated LFTs Other abnormal blood chemistry documented in this encounter Care Teams In Flight Refueling Manager Relationship Specialty Start Date End Date Juan Dempsey MD [address] [place] [address] PCP - General Emergency Medicine 08/20/21 documented as of this encounter
--- OUTSIDE RECORDS SUMMARY | 2024-03-09 10:19 | XMS_ITS | Encounter Summary ---
Author Organization [facility] [place] [address] Care Team Providers Care Mounted Police Name Role Phone Juan Dempsey MD Primary Care Provider [phone] Reason for Referral * Consultation (Emergency) - Closed Specialty Diagnoses / Procedures Referred By Burak mcnair Referred To Contact Gastroenterology Diagnoses Elevated LFTs Kelin Carlos APRN [address] [place] [address] [place] [address] Jordyn Merino MD [facility] [place] [place] [address] Referral ID Status Reason Start Date Expiration Date V isits Requested Visits Authorized [id number] Closed Specialty Service Requested 10/29/2021 10/29/2022 1 1 Reason for Visit * Reason Comments Follow-up Encounter Details Date Type Department Care Team (Late st Contact Info) Description 10/29/2021 10:00 AM EDT Office Visit Hematology and [place] [address] Kelin Carlos APRN [address] [place] [address] DR HEMATOLOGY AND ONCOLOGY [place], [place] [id number] Renal cell carcinoma, unspecified laterality; Elevated LFTs; [...] encounter Patient Instructions * Patient Instructions* Kelin Carlos, MARTITA - 10/29/2021 10:24 AM EDT Images from [...] or approved for treating a specific patient. [employer] and its affiliates disclaim any warranty or liability relating to this information or the use thereof. The use of this information is governed by the Terms of Use, available at h ttps://www.[employer].com/en/know/wjiioscp-ootvborygjsej-szqoa. Last Reviewed Date 2021-05-05 ?? 2021 [employer]. and its affiliates and/or licensors. All rights reserved. Add To Packet Print HL7 Request OK Packet Contents Conditions/Procedures Conditions Procedures Discharge Instructions Healthy Living Natural Products Medications Adult Medications Pediatric Medications Packet Options Language [] Monegasque copy of non-Monegasque leaflets [] Packet Summary [] Signature Page [...] from the original note were not included. [facility] Oncology - Follow Up Visit History [...] -Still holding atorvastatin -Went to ED at [facility] 10/2021 under guidance from PCP for fever [...] otherwise or other focal complaints -Saw Dr. 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 Advised pt [...] 10:30 AM EST Laboratory Appointment Lab [place] [facility] [place] [address] [place] [address] 03/29/2024 12:[address] [place] [address] Albino Bartholomew MD [facility] [place] [address] 04/05/2024 10:00 AM EST Office Visit Hematology and [place]cology [place] [address] Albino Bartholomew MD [facility] [place] [address] Scheduled Referrals Name Type Priority Associated Diagnoses Order Schedule Referral to Gastroenterology Outpatient Referral STAT Elevated LFTs Ordered: 10/29/2021 documented as of this encounter Results * (ABNORMAL) Comprehensive metabolic panel (non-fasting) (11/26/2021 9:13 AM EDT) Glucose 184 65 - 199 mg/dL [facility] Comment:Diabetes: >=200 mg/d L plus symptoms Blood Urea Nitrogen 25(H) 10 - 20 mg/dL [facility] Creatinine 1.37 0.80 - 1.50 mg/dL [facility] Sodium 141 135 - 145 mmol/L [facility] Potassium 3.6 3.5 - 5.0 mmol/L [facility] Comment: Please note: ??Patients with WBC >100,000 may have falsely elevated Potassium levels. ??For accurate Potassium quantification in these patients send serum separator tube (gold top) for subsequent determinations. ??Contact the Clinical Chemistry Laboratory if there are any questions. Chloride 104 98 - 107 mmol/L [facility] Carbon Dioxide 28 22 - 31 mmol/L [facility] Anion Gap 9 5 - 15 mmol/L [facility] Calcium 9.3 8.5 - 10.5 mg/dL [facility] Protein, Total 6.5 6.1 - 8.0 g/dL [facility] Albumin 4.2 3.2 - 5.2 g/dL [facility] Aspartate Aminotransferase 17 0 - 39 unit/L [facility] Alanine Aminotransferase 28 0 - 55 unit/L [facility] Alkaline Phosphatase 95 40 - 130 unit/L [facility] Bilirubin, Total 0.5 0.2 - 1.3 mg/dL [facility] Est Glomerular Filtration Rate 57(L) >=60 mL/min/1. 73 m?? 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
--- OUTSIDE RECORDS SUMMARY | 2024-03-09 10:19 | XMS_ITS | Encounter Summary ---
Author Organization [facility] Address [facility] [place] [address] Care Team Providers Care Continuous Mining Machine Lode Miner Name Role Phone Juan Dempsey MD Primary Care Provider [phone] Encounter Details Date Type Department Care Team (Latest Contact Info) Description 10/08/2021 12:46 PM EDT - 10/08/2021 11:59 PM EDT Hospital Encounter Hematology [place] [phone] Renal cell carcinoma, unspecified laterality; Medication management [...] [facility] H[facility] Oncology [address] [place] [address] 03/29/2024 12:[address] [place] [phone] Albino Bartholomew MD [facility] HEMATOLOGY [place] [address] 04/05/2024 10:00 AM EST Office Visit Hematology [place] [phone] Albino Bartholomew MD [facility] H[place]ATOLOGY [place] [address] documented as of this encounter Procedures Procedure [...] 12:57 PM EDT) Neutrophil % 92.2 % [facility] Neutrophil Absolute 11.75(H) 1.70 - 6.10 x10(3)/mc L [facility] Lymph % 4.0 % [facility] Lymphocytes Abs 0.5(L) 0.9 - 3.2 x10(3)/mc L [facility] Monocyte % 2.7 % [facility] Monocyte Abs 0.3 0.3 - 0.9 x10(3)/[facility] Eos % 0.2 % [facility] Eosinophils Abs 0.0 0.0 - 0.4 x10(3)/[facility] Basophil % 0.3 % [facility] Baso Absolute 0.0 0.0 - 0.1 x10(3)/[facility] Immature Gran % 0.60 % [facility] Comment: Immature granulocytes(IG's)percentage and absolute count will include metamyelocytes, myelocytes, and promyelocytes. Blood smears from CBCs yielding IG's will be scanned manually for concordance. If this scan disagrees with the automated IG or if promyelocytes are noted, a manual differential will be performed. Immature Gran Absolute 0.08(H) 0.00 - 0.04 x10(3)/[facility] Blood 10/08/2021 12:5 7 PM EDT 10/08/2021 1:24 PM EDT Narrative Resulting Agency Comment Spec In Lab Sara Loza MD HEMATOLOGY ORDERABLE S [facility] [place] [address] * (ABNORMAL) Hemogram (10/08/2021 12:57 PM EDT) White Blood Cell 12.7(H) 4.0 - 9.5 x10(3)/[facility] Red Blood Cell 4.88 4.58 - 5.54 x10(6)/[facility] Hemoglobin 14.3 13.7 - 16.5 g/dL [facility] Hematocrit 42.7 40.5 - 48.5 % [facility] Mean Cell Volume 87.5 82.9 - 93.1 fL [facility] Mean Cell Hemoglobin 29.3 27.5 - 32.1 pg [facility] Mean Cell Hemoglobin Concentration 33.5 32.0 - 35.7 g/dL [facility] Platelet 160 145 - 357 x10(3)/mc L [facility] RDW Standard Deviation 48.2(H) 36.0 - 45.0 fL [facility] RDW coefficient of variation 14.9(H) 11.4 - 13.8 % [facility] Mean Platelet Volume 9.9 7.6 - 12.9 fL [facility] NRBC% auto 0.0 % [facility] NRBC Absolute 0.000 0.000 - 0.000 x10(3)/mc L [facility] Blood 10/08/2021 12:5 7 PM EDT 10/08/2021 1:24 PM EDT Narrative Resulting Agency Comment Spec In Lab Sara Loza MD HEMATOLOGY ORDERABLE S Performing Organization Address [facility] Co de Phone Number [facility] [place] [address] * TSH (10/08/2021 12:57 PM EDT) Thyroid Stimulating Hormone 1.18 0.27 - 4.20 mcIU/mL [facility] Comment: Reference Interval (mcIU/mL): Females: ??First Trimester: 0.23-3.88 ??Second Trimester: 0.22-3.90 ??Third Trimester: 0.44-4.66 Blood 10/08/2021 12:5 7 PM EDT 10/08/2021 1:24 PM EDT Narrative Resulting Agency Comment Spec In Lab Albino Bartholomew MD CHEMISTRY ORDERABLES Performing Organization Address [facility] Co de Phone Number [facility] [place] [address] * (ABNORMAL) Comprehensive metabolic panel (non-fasting) (10/08/2021 12:57 PM EDT) Glucose 134 65 - 199 mg/dL [facility] Comment:Diabetes: >=200 mg/d L plus symptoms Blood Urea Nitrogen 41(H) 10 - 20 mg/dL [facility] Creatinine 1.68(H) 0.80 - 1.50 mg/dL [facility] Sodium 137 135 - 145 mmol/L [facility] Potassium 4.8 3.5 - 5.0 mmol/L [facility] Comment: Please note: ??Patients with WBC >100,000 may have falsely elevated Potassium levels. ??For accurate Potassium quantification in these patients send serum separator tube (gold top) for subsequent determinations. ??Contact the Clinical Chemistry Laboratory if there are any questions. Chloride 102 98 - 107 mmol/L [facility] Carbon Dioxide 24 22 - 31 mmol/L [facility] Anion Gap 11 5 - 15 mmol/L [facility] Calcium 9.1 8.5 - 10.5 mg/dL [facility] Protein, Total 6.4 6.1 - 8.0 g/dL [facility] Albumin 4.0 3.2 - 5.2 g/dL [facility] Aspartate Aminotransferase 25 0 - 39 unit/L [facility] Alanine Aminotransferase 45 0 - 55 unit/L [facility] Alkaline Phosphatase 96 40 - 130 unit/L [facility] Bilirubin, Total 0.6 0.2 - 1.3 mg/dL [facility] Est Glomerular Filtration Rate 42(L) >=60 mL/min/1. 73 m?? [facility] [...] Bartholomew MD CHEMISTRY ORDERABLES Performing Organization Address City/State/[facility] Co de Phone Number [facility] [place] [address] documented in this encounter Visit Diagnoses Diagnosis Renal cell carcinoma, unspecified laterality Medication management Encounter for long-term (current) use of other medications documented in this encounter Care Teams Continuous Mining Machine Lode Miner Relationship Specialty Start Date End Date Juan Dempsey MD [address] [place] [address] PCP - General Emergency Medicine 08/20/21 documented as of this encounter
--- OUTSIDE RECORDS SUMMARY | 2024-03-09 10:19 | XMS_ITS | Encounter Summary ---
Author Organization [facility] Address [facility] [address] Care Team Providers Care Shop Director Name Role Phone Juan Dempsey MD Primary Care Provider [phone] Encounter Details Date Type Department Care Team (Late st Contact Info) Description 10/20/2021 8:05 PM EDT Ancillary Procedure Radiology Library at [facility] [place] [address] Juan Dempsey MD [address] [place] [address] Social History Tobacco Use Types [...] [facility] Hemat[facility] Oncology [address] [place] [address] 03/29/2024 12:[address] [place] [phone] Albino Bartholomew MD [facility] DR HEMATOLOGY [place] [address] 04/05/2024 10:00 AM EST Office Visit Hematology [place] [address] Albino Bartholomew MD [facility] DR HEMATOLOGY [place] [address] documented as of this encounter Procedures Procedure Name Priority Date/Time Associated Diagnosis Comments FILM LIBRARY STORAGE ONLY ULTRASOUND STUDY Routine 10/20/2021 8:00 PM EDT documented in this encounter Results * Film Library- Storage Only Ultrasound Study (10/20/2021 8:00 PM EDT) Narrative RAD - 10/20/2021 8:00 PM EDT This exam is auto-finalizing. It's purpose is for storage only. Juan Dempsey MD IMG FILM LIBRARY ORD ERABLES [place], [place] documented in this encounter Visit Diagnoses Not on filedocumented in this encounter Care Teams Shop Director Relationship Specialty Start Date End Date Juan Dempsey MD [address] [place] [address] PCP - General Emergency Medicine 08/20/21 documented as of this encounter
--- OUTSIDE RECORDS SUMMARY | 2024-03-09 10:19 | XMS_ITS | Encounter Summary ---
Author Organization [facility] Address [facility] [place] [address] Care Team Providers Care Job Placement Specialist Name Role Phone Juan Dempsey MD Primary Care Provider [phone] Reason for Visit * Consultation (Emergency) - Closed Specialty Diagnoses / Procedures Referred By Burak mcnair Referred To Contact Gastroenterology Diagnoses Elevated LFTs Kelin Carlos APRN [address] [place] [address] [place] [address] Jordyn Merino MD [facility] [place] [address] Referral ID Status Reason Start Date Expiration Date V isits Requested Visits Authorized [id number] Closed Specialty Service Requested 10/29/2021 10/29/2022 1 1 Encounter Details Date Type Department Care Team (Latest Contact Info) Description 10/31/2021 2:00 PM EDT TH Visit (TeleHealth) [place] [phone] Ana Pringle MD [facility] [place] [address] Drug-induced hepatitis; Autoimmune hepatitis Social History Tobacco [...] (Left); Achilles tendon surgery; Remv Kidney, Radical (73998) (Left, 06/23/2021); Cystourethroscopy (54362) (N/A, 06/23/2021); and Colonoscopy, Diagnostic (55858) (N/A, 10/02/2021). Family History: family history includes [...] Ref Range Status ??? COLONOSCOPY 10/02/2021 Final Value:[facility] Endoscopy Procedure Date: 10/02/2021 3:02 PM Patient Name: Raymundo Tenorio Date of : 1955 Age: 66 Order #: [id number] Instrument Name: [id number] Procedure: Colonoscopy Indications: Positive Cologuard test Providers: [...] PM ??? Surgical Pathology Report 10/02/2021 Final Value:[id number] Location: 4T; EA13; A The signing pathologist has (i) examined the relevant preparation(s) for the specimen(s) and (ii) rendered or confirmed the diagnosis(es). . Surgical Pathology DIAGNOSIS A - Transverse colon polyp, resection: - Tubular adenoma. Electronically signed by: Renea Acuna MD Verified: 10/09/2021 16:09 Pathologist Performed at: -[facility] Dept. of Pathology, [place], [place] SPECIMEN(S) SUBMITTED A - Transverse colon [...] him in clinic when he returns to [facility] on November 26. He will get laboratory investigations prior to this visit and we will plan on performing a FibroScan at this visit. We will work on obtaining his viral hepatitis testing from his primary care provider. The patient was located in [place] at the time of their visit. TIME SPENT 30 min Time spent during encounter with patient including counselin minutes An additional 10 minutes were spent before and after the visit on this same day in preparation for the appointment, ordering tests and/or prescriptions, communicating with referring providers and completing documentation Approximate total time devoted to this single encounter: 40 Ana Pringle MD [facility] [address] [place] [address] documented in this encounter Plan of Treatment Upcoming Encounters Date Type Department Care Team (Late st Contact Info) Description 03/29/2024 10:30 AM EST Laboratory Appointment Lab at [facility] Hematology Oncology [address] [place] [address] 03/29/2024 12:[address] [place] [address] Albino Bartholomew MD [facility] HEMATOLOGY [place] [address] 04/05/2024 10:00 AM EST Office Visit Hematology [place] [address] Albino Bartholomew MD [facility] HEMATOLOGY [place] [address] documented as of this encounter Results * Smooth Muscle Antibody (11/26/2021 9:13 AM EDT) Sm Muscle Ab (AUGUST) Negative Negative [facility] Comment: Negative: No further testing will be performed ADDITIONAL INFORMATION This test was developed and its performance characteristics determined by [facility] in a manner consistent with CLIA requirements. This test has not been cleared or approved by the U.S. Food and Drug Administration. Test Performed by: [facility] - [address] [address] Paralegal: Dominick Jara M.D. Ph.D.; CLIA# [id number] Blood 11/26/2021 9:13 AM EDT 11/26/2021 1:12 PM EDT Narrative Resulting Agency Comment Spec In Lab Ana Pringle MD LAB SEND OUT ORDERAB LES Performing Organization Address City/[facility]/ZIP Co de Phone Number [facility] [place] [address] * IgG (11/26/2021 9:13 AM EDT) Immunoglobulin G 992 700 - 1,600 mg/dL [facility] Comment: Pediatric Reference Intervals obtained from the [employer] Reference Interval project. http://www.[employer]irst[employer].ca/caliperproject/index.html Blood 11/26/2021 9:13 AM EDT 11/26/2021 9:24 AM EDT Narrative Resulting Agency Comment Spec In Lab Ana Pringle MD CHEMISTRY ORDERABLES Performing Organization Address [facility] Co de Phone Number [facility] [place] [address] documented in this encounter Visit Diagnoses Diagnosis Drug-induced hepatitis Hepatitis, unspecified Autoimmune hepatitis documented in this encounter Care Teams Job Placement Specialist Relationship Specialty Start Date End Date Juan Dempsey MD [address] [place] [address] PCP - General Emergency Medicine 08/20/21 documented as of this encounter
--- OUTSIDE RECORDS SUMMARY | 2024-03-09 10:19 | XMS_ITS | Encounter Summary ---
Author Organization [facility] Address [facility] [place] [address] Care Team Providers Care Demo Specialist Name Role Phone Juan Dempsey MD Primary Care Provider [phone] Encounter Details Date Type Department Care Team (Late st Contact Info) Description 10/24/2021 Telephone [place]ematology [place] [phone] Tara Dewey MD [facility] DR HEMATOLOGY/[place] [address] Social History Tobacco Use Types Packs/Day Years [...] Tara Lima M.D. Hematology/Oncology Fellow Pager # [phone] 10/24/21, 7:35 AM Hematology/Oncology Clinic [facility] [place] [phone] documented in this encounter Plan of Treatment Upcoming Encounters Date Type Department Care Team (Late st Contact Info) Description 03/29/2024 10:30 AM EST Laboratory Appointment Lab at [facility] Hematology Oncology [address] [place] [address] 03/29/2024 12:[address] [place] [place] [address] Albino Bartholomew MD [facility] DR HEMATOLOGY [place] [address] 04/05/2024 10:00 AM EST Office Visit [place]ematology [place] [address] Albino Bartholomew MD [facility] DR HEMATOLOGY [place] [address] documented as of this encounter Visit Diagnoses Not on filedocumented in this encounter Care Teams Demo Specialist Relationship Specialty Start Date End Date Juan Dempsey MD [address] [place] [address] PCP - General Emergency Medicine 08/20/21 documented as of this encounter
--- OUTSIDE RECORDS SUMMARY | 2024-03-09 10:19 | XMS_ITS | Encounter Summary ---
Author Organization [facility] Address [facility] [place] [address] Care Team Providers Care Communication Spec Name Role Phone Juan Depmsey MD Primary Care Provider [phone] Reason for Referral * Diagnostic Test (Routine) - Closed Specialty Diagnoses / Procedures Referred By Contjuan t Referred To Contact Radiology Diagnoses Renal cell carcinoma, unspecified laterality Procedures MRI Abdomen wwo Contrast (Generic) Jordan Hou MD [facility] [address] [place] [address] Referral ID Status Reason Start Date Expiration Date V isits Requested Visits Authorized [id number] Closed Specialty Service Requested 10/21/2021 04/22/2023 1 1 Encounter Details Date Type Department Care Team (Latest Contact Info) Description 10/21/2021 10:00 AM EDT TH Visit (TeleHealth) [place] [address] Jordan Hou MD [facility] [address] Renal cell carcinoma, unspecified laterality [...] consent to receiving health care services at [facility] through telemedicine. The patient acknowledges that [...] MD Verified: ??07/02/2021 11:14 ??Pathologist Performed at: ??-[facility] Dept. of Pathology, [place], [place] ? Surgical Pathology DIAGNOSIS A - Left Kidney, biopsy (1) Clear cell renal cell carcinoma, pT3a N1, see synoptic report. Electronically signed by: ?Renea Acuna MD Verified: ??07/02/2021 10:38 ??Pathologist Performed at: ??-[facility] Dept. of Pathology, [place], [place] SYNOPTIC Specimen Parts: ??A Specimen ?Procedure: [...] DIAGNOSTIC performed by Jordyn Merino MD at [facility] ENDOSCOPY ??? PRO CYSTOURETHROSCOPY N/A 06/23/2021 CYSTO, CYSTOURETHROSCOPY, DIAGNOSTIC (WRVU 2.23) performed by Jordan Hou MD at [facility] MAIN OR ??? PRO REMV KIDNEY, RADICAL Left 06/23/2021 @NEPHRECTOMY, RADICAL W\REG LYMPHADENECTOMY &\OR VENA CAVA THROMBECTOMY (WRVU 23.81) performed by Jordan Hou MD at [facility] MAIN OR Social History Socioeconomic History ??? [...] [facility] Hematology Oncology [address] [place] [address] 03/29/2024 12:[address] [place] [address] Albino Bartholomew MD [facility] DR [place] [address] 04/05/2024 10:00 AM EST Office Visit Hematology [place] [address] Albino Bartholomew MD [facility] [address] [place] [address] documented as of this encounter Results * [...] who have questions please contact the health customer care agent that requested your imaging first. ? Electronically signed by: Tima Zacarias MD, [facility] ([phone]), at 11/08/2021 10:06 AM Narrative 11/08/2021 10:06 [...] patients who have questions please contactthe health customer care agent that requested your imaging first. Electronically signed by: Tima Zacarias MD, [facility]([phone]), at 11/08/2021 10:06 AM Jordan Hou MD IMG MRI ORDERABLES documented in this encounter Visit Diagnoses Diagnosis Renal cell carcinoma, unspecified laterality Renal cell carcinoma, unspecified laterality documented in this encounter Care Teams Communication Spec Relationship Specialty Start Date End Date Juan Dempsey MD [address] [place] [address] PCP - General Emergency Medicine 08/20/21 documented as of this encounter
--- OUTSIDE RECORDS SUMMARY | 2024-03-09 10:19 | XMS_ITS | Encounter Summary ---
Author Organization [facility] Address [facility] [place] [address] Care Team Providers Care Private Wealth Advisor Name Role Phone Juan Dempsey MD Primary Care Provider [phone] Encounter Details Date Type Department Care Team (Late st Contact Info) Description 10/20/2021 Telephone Hematology [place] [address] Aleksandra Wells MD [facility] DR HEMATOLOGY/[place] [address] Social History Tobacco Use Types Packs/Day Years [...] 10/20/2021 5:30 PM EDT Reason for call: [facility] is calling for consult Re: fever and [...] and swelling. He presented today to the [facility] ER. In ER he is afebrile, VSS. [...] Aleksandra Wells MD, MS Hematology/Medical Oncology Fellow [facility] at [facility] Page # [phone] 10/20/21, 6:03 PM documented in this encounter Plan of Treatment Upcoming Encounters Date Type Department Care Team (Late st Contact Info) Description 03/29/2024 10:30 AM EST Laboratory Appointment Lab at [facility] Hematology Oncology [address] [place] [address] 03/29/2024 12:[address] [place] [address] Albino Bartholomew MD [facility] [place] [address] 04/05/2024 10:00 AM EST Office Visit Hematology [place] [address] Albino Bartholomew MD [facility] [place] [address] documented as of this encounter Visit Diagnoses Not on filedocumented in this encounter Care Teams Private Wealth Advisor Relationship Specialty Start Date End Date Juan Dempsey MD [address] [place] [address] PCP - General Emergency Medicine 08/20/21 documented as of this encounter
--- OUTSIDE RECORDS SUMMARY | 2024-03-09 10:19 | XMS_ITS | Encounter Summary ---
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 Should be tapering to the followinmg/day x 1 week 10mg/day x 1 week Following LFT's. Currently on 40 mg daily since 10/01. Received plan for follow-up call from Dr. Bartholomew Nursing: will continue weekly CMP for f/u on liver function and Cr at [facility]. [facility] needs new standingorder as previous . Please follow Next visit in 3 week with CBC and CMP Message sent to Dr. Bartholomew requesting update on prednisone plan. 10/08-10/15 20mg/day x 1 week 10/16-10/22 10mg/day x 1 week, then stop Order pended to Kelin Carlos APRN, and clinical community youth secretary informed for scheduling lab with [facility].Triage to follow-up on labs and taper on 10/15. documented in this encounter Plan of Treatment Upcoming Encounters Date Type Department Care Team (Late st Contact Info) Description 03/29/2024 10:30 AM EST Laboratory Appointment Lab at [facility] [place] Oncology [address] [place], [place] [id number] 03/29/2024 12:[address] [place] [address] Albino Bartholomew MD [facility] DR HEMATOLOGY [place] [address] 04/05/2024 10:00 AM EST Office Visit Hematology [place] [address] Albino Bartholomew MD [facility] DR [place] [address] documented as of this encounter Visit Diagnoses Diagnosis Renal cell carcinoma, unspecified laterality Elevated LFTs Other abnormal blood chemistry documented in this encounter Care Teams Snack Stewardess Relationship Specialty Start Date End Date Juan Dempsey MD [address] [place] [address] PCP - General Emergency Medicine 08/20/21 documented as of this encounter
--- OUTSIDE RECORDS SUMMARY | 2024-03-09 10:19 | XMS_ITS | Encounter Summary ---
Author Organization [facility] Address [facility] [place] [address] Care Team Providers Care Home Performance Laborer Name Role Phone Juan Dempsey MD Primary Care Provider [phone] Reason for Visit * Auth/Cert Specialty Diagnoses / Procedures Referred By Contjuan t Referred To Contact Diagnoses positive cologard, screening Procedures PRO COLONOSCOPY, DIAGNOSTIC COLONOSCOPY, DIAGNOSTIC Referral ID Status Reason Start Date Expiration Date Visits Re quested Visits Authorized [id number] 1 1 Encounter Details Date Type Department Care Team (Late st Contact Info) Description 10/02/2021 3:00 PM EDT - 10/02/2021 3:45 PM EDT Surgery [place] [address] Jordyn Merino MD [facility] [place] [address] COLONOSCOPY, DIAGNOSTIC (WRVU 3.26) Social History Tobacco [...] sent through Care Everywhere. * Colonoscopy: Post-op (Albanian) documented in this encounter Medications at [place] [address] [place] [address] 03/29/2024 12:[address] [place] [address] Albino Bartholomew MD [facility] DR [place] [address] 04/05/2024 10:00 AM EST Office Visit Hematology [place] [address] Albino Bartholomew MD [facility] [place] [address] documented as of this encounter Procedures Procedure Name Priority Date/Time Associated Diagnosis Comments SURGICAL PATHOLOGY REPORT Routine 10/02/2021 3:47 PM EDT SPECIMEN TO PATHOLOGY Routine 10/02/2021 3:47 PM EDT Colonoscopy, Diagnostic (07664) 10/02/2021 3:20 PM EDT positive cologard, screening COLONOSCOPY Routine 10/02/2021 3:02 PM EDT documented in this encounter Results * Surgical Pathology Report (10/02/2021 3:47 PM EDT) Final Diagnosis [id number] ? Location: 4T; EA13; A The signing pathologist has (i) examined the relevant preparation(s) for the specimen(s) and (ii) rendered or confirmed the diagnosis(es). . ?Surgical Pathology DIAGNOSIS A - Transverse colon polyp, resection: - ??Tubular adenoma. Electronically signed by: ?Renea Acuna MD Verified: ??10/09/2021 16:09 ??Pathologist Performed at: ??-[facility] [place], [place], [place] SPECIMEN(S) SUBMITTED A - Transverse colon polyp, resection (1) CLINICAL INFORMATION Screening colonoscopy SPECIMEN PROCESSING A - Labeled/Fixativ e: Transverse colon polyp, formalin. Quantity/Size: Single, 0.3 x 0.3 x 0.2 cm. Tissue Description: Partially flattened tinajero-red mucosal polyp and underlying translucent mucosal tissue. Sections/Proces sing: Submitted en toto ??in 1 cassette labeled A1. ??shb 10/09/2021 4:[address] [facility] GI Biopsy 10/02/2021 3:47 PM EDT 10/02/2021 3:47 PM EDT Jordyn Merino MD PATHOLOGY/CYTOLOGY O WILLIAM Performing Organization Address [facility] Co de Phone Number [facility] [place] [address] * Specimen to Pathology (10/02/2021 3:47 PM EDT) AP Specimen 10/02/2021 3:47 PM EDT 10/02/2021 3:[address] [facility] - 10/02/2021 3:47 PM EDT Specimen requisition ordered. ??Separate Pathology report to follow Jordyn Merino MD PATHOLOGY/CYTOLOGY O WILLIAM Performing Organization Address City/[facility]/ZIP Co de Phone Number [facility] [place] [address] * COLONOSCOPY (10/02/2021 3:02 PM EDT) COLONOSCOPY [facility] Endoscopy Procedure Date: 10/02/2021 3:02 PM ? Patient Name: Raymundo Tenorio ? Date of : 1955 ? Age: 66 ? Order #: [id number] ? Instrument Name: [id number] ? Procedure: ? Colonoscopy Indications: ? Positive [...] Jennyfer Armando RN)1527 (Given - Provider: Jennyfer Armando, RN)1529 (Given - Provider: Jennyfer Armando, RN)1531 (Given - Provider: Jennyfer Armando, RN) documented in this encounter Care Teams Home Performance Laborer Relationship Specialty Start Date End Date Juan Dempsey MD [address] [place] [address] PCP - General Emergency Medicine 08/20/21 documented as of this encounter
--- OUTSIDE RECORDS SUMMARY | 2024-03-09 10:19 | XMS_ITS | Encounter Summary ---
Author Organization [facility] [place] [address] Care Team Providers Care Machine Operator Name Role Phone Juan Dempsey MD Primary Care Provider [phone] Encounter Details Date Type Department Care Team (Latest Contact Info) Description 10/16/2021 12:15 PM EDT Laboratory Appointment Lab [address] [place] [address] Renal cell carcinoma, unspecified laterality [...] [facility] H[facility] Oncology [address] [place] [address] 03/29/2024 12:[address] [place] [place] [address] Albino Bartholomew MD [facility] DR [place]AT[place] [address] 04/05/2024 10:00 AM EST Office Visit [place]ology [place] [address] Albino Bartholomew MD [facility] DR [place]AT[place] [address] documented as of this encounter Procedures Procedure Name Priority Date/Time Associated Diagnosis Comments HC VENIPUNCTURE STAT 10/16/2021 12:08 PM EDT Renal cell carcinoma, unspecified laterality documented in this encounter Results * (ABNORMAL) Basic Metabolic Panel (non-fasting) (10/16/2021 12:08 PM EDT) Glucose 128 65 - 199 mg/dL [facility] Comment:Diabetes: >=200 mg/d L plus symptoms Blood Urea Nitrogen 25(H) 10 - 20 mg/dL [facility] Creatinine 1.62(H) 0.80 - 1.50 mg/dL [facility] Sodium 136 135 - 145 mmol/L [facility] Potassium 4.7 3.5 - 5.0 mmol/L [facility] Comment: Please note: ??Patients with WBC >100,000 may have falsely elevated Potassium levels. ??For accurate Potassium quantification in these patients send serum separator tube (gold top) for subsequent determinations. ??Contact the Clinical Chemistry Laboratory if there are any questions. Chloride 101 98 - 107 mmol/L [facility] Carbon Dioxide 25 22 - 31 mmol/L [facility] Anion Gap 10 5 - 15 mmol/L [facility] Calcium 8.7 8.5 - 10.5 mg/dL [facility] Est Glomerular Filtration Rate 47(L) >=60 mL/min/1. 73 m?? [facility] Comment: This patient's estimated [...] Lab Jordan Hou MD CHEMISTRY ORDERABL ES [facility] [place] [address] documented in this encounter Visit Diagnoses Diagnosis Renal cell carcinoma, unspecified laterality documented in this encounter Care Teams Machine Operator Relationship Specialty Start Date End Date Juan Dempsey MD [address] [place] [address] PCP - General Emergency Medicine 08/20/21 documented as of this encounter
--- OUTSIDE RECORDS SUMMARY | 2024-03-09 10:19 | XMS_ITS | Encounter Summary ---
Author Organization [facility] [place] [place] [address] Care Team Providers Care Professor Of Physical Education Name Role Phone Juan Dempsey MD Primary Care Provider [phone] Reason for Visit * Reason Onset Date Comments Reminder Appointment 10/31/2021 Encounter Details Date Type Department Care Team (Late st Contact Info) Description 10/31/2021 Telephone [place] [address] [facility]els, [facility] Appointment Social History Tobacco Use Types [...] [facility] [place] [place] [address] [place] [address] 03/29/2024 12:[address] [place] [address] [facility] [place] [address] 04/05/2024 10:00 AM EST Office Visit Hematology [place] [address] [facility] [place] [address] documented as of this encounter Visit Diagnoses Not on filedocumented in this encounter Care Teams Professor Of Physical Education Relationship Specialty Start Date End Date Juan Dempsey MD [address] [place] [address] PCP - General Emergency Medicine 08/20/21 documented as of this encounter
--- OUTSIDE RECORDS SUMMARY | 2024-03-09 10:19 | XMS_ITS | Encounter Summary ---
Author Organization [facility] Address [facility] [place] [address] Care Team Providers Care College Recruiter Name Role Phone Juan Dempsey MD Primary Care Provider [phone] Encounter Details Date Type Department Care Team (Late st Contact Info) Description 10/20/2021 8:10 PM EDT Ancillary Procedure Radiology Library [place] [facility] [place] [address] Juan Dempsey MD [address] [place] [address] Social History Tobacco Use Types [...] [facility] [place] Oncology [address] [place] [address] 03/29/2024 12:[address] [place] [place] [address] Albino Bartholomew MD [facility] DR HEMATOLOGY [place] [address] 04/05/2024 10:00 AM EST Office Visit Hematology [place] [address] Albino Bartholomew MD [facility] DR HEMATOLOGY [place] [address] documented as of this encounter Procedures Procedure Name Priority Date/Time Associated Diagnosis Comments FILM LIBRARY STORAGE ONLY DX CHEST Routine 10/20/2021 8:01 PM EDT documented in this encounter Results * Film Library- Storage Only DX Chest (10/20/2021 8:01 PM EDT) Narrative RAD - 10/20/2021 8:01 PM EDT This exam is auto-finalizing. It's purpose is for storage only. Juan Dempsey MD IMG FILM LIBRARY ORD ERABLES [place], [place] documented in this encounter Visit Diagnoses Not on filedocumented in this encounter Care Teams College Recruiter Relationship Specialty Start Date End Date Juan Dempsey MD [address] [place] [address] PCP - General Emergency Medicine 08/20/21 documented as of this encounter
--- OUTSIDE RECORDS SUMMARY | 2024-03-09 10:19 | XMS_ITS | Encounter Summary ---
Author Organization [facility] Address [facility] [place] [address] Care Team Providers Care Perioperative Nurse Name Role Phone Juan Dempsey MD Primary Care Provider [phone] Encounter Details Date Type Department Care Team (Late st Contact Info) Description 10/15/2021 Telephone Hematology [place] [address] Daxa Arriola RN Social History [...] f/u on liver function and Cr at [facility] Prednisone taper weekly if LFTs [...] [place] [facility] [place] [address] [place] [address] 03/29/2024 12:[address] [place] [place] [address] Albino Bartholomew MD [facility] DR [place] [address] 04/05/2024 10:00 AM EST Office Visit Hematology [place] [address] Albino Bartholomew MD [facility] DR [place] [address] documented as of this encounter Visit Diagnoses Not on filedocumented in this encounter Care Teams Perioperative Nurse Relationship Specialty Start Date End Date Juan Dempsey MD [address] [place] [address] PCP - General Emergency Medicine 08/20/21 documented as of this encounter
--- OUTSIDE RECORDS SUMMARY | 2024-03-09 10:19 | XMS_ITS | Encounter Summary ---
Author Organization [facility] Address [facility] [place] [address] Care Team Providers Care Tube Cleaner Name Role Phone Juan Dempsey MD Primary Care Provider [phone] Encounter Details Date Type Department Care Team (Late st Contact Info) Description 11/05/2021 Telephone Hematology [place] [address] Daxa Arriola RN Social History [...] Kelin Carlos APRN Davis, Robin, RN; P [facility]c Triage Gu Gilson Sanders. We only checked CMP since we were just wanting to f/u on LFTs with this draw. Thanks, Jennifer ?? Previous Messages ?? ----- Message ----- From: Gilson Tobar, RN Sent: 11/04/2021 ?? 5:11 PM EDT To: Kelin Carlos APRN Subject: RE: Cmp in from [facility] ? Hi! I gave him a call [...] Care Team (Lucero jordan Contact Info) Description 03/29/2024 10:30 AM EST Laboratory Appointment Lab at [facility] [place] [address] [place] [address] 03/29/2024 12:[address] [place] [address] Albino Bartholomew MD [facility] DR HEMATOLOGY [place] [address] 04/05/2024 10:00 AM EST Office Visit Hematology [place] [address] Albino Bartholomew MD [facility] DR [place]EMATOLOGY [place] [address] documented as of this encounter Visit Diagnoses Not on filedocumented in this encounter Care Teams Tube Cleaner Relationship Specialty Start Date End Date Juan Dempsey MD [address] [place] [address] PCP - General Emergency Medicine 08/20/21 documented as of this encounter
--- OUTSIDE RECORDS SUMMARY | 2024-03-09 10:19 | XMS_ITS | Encounter Summary ---
Author Organization [facility] Address [facility] [place] [address] Care Team Providers Care Space Systems Operations Craftsman Name Role Phone Juan Dempsey MD Primary Care Provider [phone] Reason for Visit * Auth/Cert Specialty Diagnoses / Procedures Referred By Contjuan t Referred To Contact Diagnoses positive cologard, screening Procedures PRO COLONOSCOPY, DIAGNOSTIC COLONOSCOPY, DIAGNOSTIC Referral ID Status Reason Start Date Expiration Date Visits Re quested Visits Authorized [id number] 1 1 Encounter Details Date Type Department Care Team (Latest Contact Info) Description 10/02/2021 1:44 PM EDT - 10/02/2021 4:25 PM EDT Hospital Encounter [place] [address] Jordyn Merino MD [facility] [place] [address] Discharge Disposition: Home Social History Tobacco Use [...] sent through Care Everywhere. * Colonoscopy: Post-op (Nigerien) documented in this encounter Medications at Time [...] AM EST Laboratory Appointment Lab at [facility] Hematology Oncology [address] [place] [address] 03/29/2024 12:[address] [place] [address] Albino Bartholomew MD [facility] DR HEMATOLOGY [place] [address] 04/05/2024 10:00 AM EST Office Visit Hematology [place] [address] Albino Bartholomew MD [facility] DR HEMATOLOGY [place] [address] documented as of this encounter Procedures Procedure Name Priority Date/Time Associated Diagnosis Comments SURGICAL PATHOLOGY REPORT Routine 10/02/2021 3:47 PM EDT SPECIMEN TO PATHOLOGY Routine 10/02/2021 3:47 PM EDT Colonoscopy, Diagnostic ([id number]) 10/02/2021 3:20 PM EDT positive cologard, screening COLONOSCOPY Routine 10/02/2021 3:02 PM EDT documented in this encounter Results * Surgical Pathology Report (10/02/2021 3:47 PM EDT) Final Diagnosis [id number] ? Location: 4; 13; A The signing pathologist has (i) examined the relevant preparation(s) for the specimen(s) and (ii) rendered or confirmed the diagnosis(es). . ?Surgical Pathology DIAGNOSIS A - Transverse colon polyp, resection: - ??Tubular adenoma. Electronically signed by: ?Armand CRAVEN, Renea Verified: ??10/09/2021 16:09 ??Pathologist Performed at: ??-[facility] Dept. of Pathology, [place], [place] SPECIMEN(S) SUBMITTED A - Transverse colon polyp, resection (1) CLINICAL INFORMATION Screening colonoscopy SPECIMEN PROCESSING A - Labeled/Fixativ e: Transverse colon polyp, formalin. Quantity/Size: Single, 0.3 x 0.3 x 0.2 cm. Tissue Description: Partially flattened tinajero-red mucosal polyp and underlying translucent mucosal tissue. Sections/Proces sing: Submitted en toto ??in 1 cassette labeled A1. ??shb 10/09/2021 4:09 PM EDT [facility] GI Biopsy 10/02/2021 3:47 PM EDT 10/02/2021 3:47 PM EDT Jordyn Merino MD PATHOLOGY/CYTOLOGY O WILLIAM Performing Organization Address City/[facility]/ZIP Co de Phone Number [facility] [place] [address] * Specimen to Pathology (10/02/2021 3:47 PM EDT) AP Specimen 10/02/2021 3:47 PM EDT 10/02/2021 3:47 PM EDT Narrative [facility] - 10/02/2021 3:47 PM EDT Specimen requisition ordered. ??Separate Pathology report to follow Jordyn Merino MD PATHOLOGY/CYTOLOGY O WILLIAM [facility] [place] [address] * COLONOSCOPY (10/02/2021 3:02 PM EDT) COLONOSCOPY [facility] Endoscopy Procedure Date: 10/02/2021 3:02 PM ? Patient Name: Raymundo Tenorio ? Date of : 1955 ? Age: 66 ? Order #: [id number] ? Instrument Name: [id number] ? Procedure: ? Colonoscopy Indications: ? Positive [...] Juan Clark RN) PRN Medication Order 09/30/2021 10/01/202110/0210/02/2021 fentaNYL (pf) (50 mcg/mL) multi-dose injection (CANCELED) [...] RN) documented in this encounter Care Teams Space Systems Operations Craftsman Relationship Specialty Start Date End Date Juan Dempsey MD [address] [place] [address] PCP - General Emergency Medicine 08/20/21 documented as of this encounter
--- OUTSIDE RECORDS SUMMARY | 2024-03-09 10:19 | XMS_ITS | Encounter Summary ---
Author Organization [facility] Address [facility] [place] [address] Care Team Providers Care Senior Portfolio Analyst Name Role Phone Juan Dempsey MD Primary Care Provider [phone] Encounter Details Date Type Department Care Team (Late st Contact Info) Description 10/17/2021 Telephone [place]ematology [place] [address] Aleksandra [place] MD [facility] DR HEMATOLOGY/[place] [address] Social History Tobacco Use Types Packs/Day Years [...] have a temperature. He verbalized understanding. Aleksandra Welsl MD, MS Hematology/Medical Oncology Fellow [facility] Page # [phone] 10/17/21, 6:26 AM documented in this encounter Plan of Treatment Upcoming Encounters Date Type Department Care Team (Late st Contact Info) Description 03/29/2024 10:30 AM EST Laboratory Appointment Lab at [facility] [place] Hematology Oncology [address] [place] [address] 03/29/2024 12:[address] [place] [place] [address] Albino Bartholomew MD [facility] DR [place] [address] 04/05/2024 10:00 AM EST Office Visit Hematology [place] [address] Albino Bartholomew MD [facility] DR [place] [address] documented as of this encounter Visit Diagnoses Not on filedocumented in this encounter Care Teams Senior Portfolio Analyst Relationship Specialty Start Date End Date Juan Dempsey MD [address] [place] [address] PCP - General Emergency Medicine 08/20/21 documented as of this encounter
--- OUTSIDE RECORDS SUMMARY | 2024-03-09 10:19 | XMS_ITS | Encounter Summary ---
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 He verbalized understanding. 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 Should be tapering to the followinmg/day x 1 week 10mg/day x 1 week documented in this encounter Plan of Treatment Upcoming Encounters Date Type Department Care Team (Late st Contact Info) Description 03/29/2024 10:30 AM EST Laboratory Appointment Lab at [facility] Hematology Oncology [address] [place] [address] 03/29/2024 12:[address] [place] [place] [address] Albino Bartholomew MD [facility] [place] [address] 04/05/2024 10:00 AM EST Office Visit [place]ematology [place] [address] Albino Bartholomew MD [facility] [place] [address] documented as of this encounter Procedures Procedure [...] filedocumented in this encounter Care Teams Car Scrubber Relationship Specialty Start Date End Date Juan Dempsey MD [address] [place] [address] PCP - General Emergency Medicine 08/20/21 documented as of this encounter
--- OUTSIDE RECORDS SUMMARY | 2024-03-09 10:20 | XMS_ITS | Encounter Summary ---
Author Organization [facility] Address [facility] [place] [address] Care Team Providers Care Senior Care Manager Name Role Phone Lisbet Solitario MD Primary Care Provider [phone] Reason for Visit * Reason Comments Follow-up Encounter Details Date Type Department Care Team (Late st Contact Info) Description 08/07/2021 10:00 AM EDT Office Visit [place]ematology [place] [address] HEMATOLOGY AND ONCOLOGY [place], [place] [id number] Renal cell carcinoma, unspecified laterality; Immunotherapy encounter [...] further o Nutrition: Informed re availability of Wire Mill Operator prn for diet/nutrition concerns. 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 o Informed re availability of BAR MACHINE OPERATOR and Psych to assist with any additional psychosocial concerns, anxiety, depression, sleep, etc concerns, barriers to care, assistance with ADs, etc. o Coping with Serious Illness: Discussed impact of cancer diagnosis on mental and physical health. Informed re availability of Psych and Pall Care teams prn. o Advance Directive: He has completed AD, has a copy, will ask principal secretary to scan into eD. Advised re [...] cycle of treatment. Post-tx f/u call with auto body repair estimator next week. Time Attestation: I certify spending [...] [facility] H[facility] Oncology [address] [place] [address] 03/29/2024 12:[address] [place] [place] [address] Albino Bartholomew MD [facility] DR [place] [address] 04/05/2024 10:00 AM EST Office Visit [place]ology [place] [address] Albino Bartholomew MD [facility] [address] [place] [address] documented as of this encounter Visit Diagnoses Diagnosis Renal cell carcinoma, unspecified laterality Immunotherapy encounter Reserved for inherently not codable concepts WITHOUT codable children documented in this encounter Care Teams Senior Care Manager Relationship Specialty Start Date End Date Lisbet Solitario MD [address] [place] [address] PCP - General Family Medicine 01/30/16 08/19/21 documented as of this encounter
--- OUTSIDE RECORDS SUMMARY | 2024-03-09 10:20 | XMS_ITS | Encounter Summary ---
Author Organization [facility] Address [facility] [place] [address] Care Team Providers Care Lumber Sorter Name Role Phone Lisbet Solitario MD Primary Care Provider [phone] Encounter Details Date Type Department Care Team (Late st Contact Info) Description 08/11/2021 Telephone Hematology [place] [address] Mary Collazo, RN Social History [...] : Education provided: Plan: 1. 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 Phone number provided. Pt verbalized understanding and is in agreement with plan. documented in this encounter Plan of Treatment Upcoming Encounters Date Type Department Care Team (Late st Contact Info) Description 03/29/2024 10:30 AM EST Laboratory Appointment Lab at [facility] Hematology Oncology [address] [place] [address] 03/29/2024 12:[address] [place] [address] Albino Bartholomew MD [facility] [address] [place] [address] 04/05/2024 10:00 AM EST Office Visit Hematology [place] [address] Albino Bartholomew MD [facility] [address] [place] [address] documented as of this encounter Visit Diagnoses Not on filedocumented in this encounter Care Teams Lumber Sorter Relationship Specialty Start Date End Date Lisbet Solitario MD [address] [place] [address] PCP - General Family Medicine 01/30/16 08/19/21 documented as of this encounter
--- OUTSIDE RECORDS SUMMARY | 2024-03-09 10:20 | XMS_ITS | Encounter Summary ---
Author Organization [facility] Address [facility] [address] Care Team Providers Care Smoking Tobacco Packer Hand Name Role Phone Juan Dempsey MD Primary Care Provider [phone] Reason for Referral * Consultation (JUAN MANUEL) - Closed Specialty Diagnoses / Procedures Referred By Contjuan t Referred To Contact Gastroenterology Diagnoses Encounter for screening for malignant neoplasm of colon Juan Dempsey MD [address] [place] [address] [facility] [place] [address] Referral ID Status Reason Start Date Expiration Date V isits Requested Visits Authorized [id number] Closed Surgical PCP Updated and/or Approved 08/20/2021 08/20/2022 6 6 Encounter Details Date Type Department Care Team (Latest Contact Info) Description 08/20/2021 Transcribe Orders eDH Incoming Referrals [phone] Juan Dempsey MD [address] [place] [address] Encounter for screening for malignant [...] Lab at [facility] Hematology Oncology [address] [place] [address] 03/29/2024 12:[address] [place] [address] [facility] DR [place] [address] 04/05/2024 10:00 AM EST Office Visit Hematology [place] [address] [facility] [address] [place] [address] Scheduled Referrals Name Type Priority Associated Diagnoses Order Schedule REFERRAL TO COLONOSCOPY PROCEDURE Outpatient Referral Routine Encounter for screening for malignant neoplasm of colon Ordered: 08/20/2021 documented as of this encounter Visit Diagnoses Diagnosis Encounter for screening for malignant neoplasm of colon Special screening for malignant neoplasms, colon documented in this encounter Care Teams Smoking Tobacco Packer Hand Relationship Specialty Start Date End Date Juan Dempsey MD [address] [place] [address] PCP - General Emergency Medicine 08/20/21 documented as of this encounter
--- OUTSIDE RECORDS SUMMARY | 2024-03-09 10:20 | XMS_ITS | Encounter Summary ---
Author Organization [facility] Address [facility] [place] [address] Care Team Providers Care Slip Cover Estimator Name Role Phone Juan Dempsey MD Primary Care Provider [phone] Reason for Visit * Treatment/Therapy Plan Authorization (Routine) - Closed Specialty Diagnoses / Procedures Referred By Burak t Referred To Contact Hematology and Oncology Diagnoses Renal cell carcinoma, unspecified laterality Medication management Procedures [id number] ([id number]) Albino Bartholomew MD [facility] [address] [place] [address] [facility] Hem Onc [address] [place] [address] Referral ID Status Reason Start Date Expiration Date Visits Re quested Visits Authorized [id number] Closed 07/30/2021 11/29/2021 99 99 Encounter Details Date Type Department Care Team (Latest Contact Info) Description 09/17/2021 12:09 PM EDT - 09/17/2021 11:59 PM EDT Hospital Encounter [place] [address] Renal cell carcinoma, unspecified laterality; [...] [facility] [address] [place] [address] 03/29/2024 12:[address] [place] [address] Albino Bartholomew MD [facility] DR [place] [address] 04/05/2024 10:00 AM EST Office Visit [place]ology [place] [address] Albino Bartholomew MD [facility] [address] [place] [address] documented as of this encounter Results * T4, free (09/17/2021 12:27 PM EDT) Free T4 1.22 0.93 - 1.70 ng/dL [facility] Comment: Reference Interval (ng/dL): Females: ??First Trimester: 0.97-1.68 ??Second Trimester: 0.77-1.51 ??Third Trimester: 0.77-1.49 Blood 09/17/2021 12:2 7 PM EDT 09/17/2021 12:32 PM EDT Narrative Resulting Agency Comment Spec In Lab Kelin Doc Carlos BORDER INSPECTOR CHEMISTRY ORDERABL ES Performing Organization Address [facility] Co de Phone Number [facility] [place] [address] * TSH (09/17/2021 12:27 PM EDT) Thyroid Stimulating Hormone 2.50 0.27 - 4.20 mcIU/mL [facility] Comment: Reference Interval (mcIU/mL): Females: ??First Trimester: 0.23-3.88 ??Second Trimester: 0.22-3.90 ??Third Trimester: 0.44-4.66 Blood 09/17/2021 12:2 7 PM EDT 09/17/2021 12:32 PM EDT Narrative Resulting Agency Comment Spec In Lab Kelin Doc Carlos BORDER INSPECTOR CHEMISTRY ORDERABL ES Performing Organization Address [facility] Co de Phone Number [facility] [place] [address] * (ABNORMAL) Comprehensive metabolic panel (non-fasting) (09/17/2021 12:27 PM EDT) Glucose 78 65 - 199 mg/dL [facility] Comment:Diabetes: >=200 mg/d L plus symptoms Blood Urea Nitrogen 24(H) 10 - 20 mg/dL [facility] Creatinine 1.38 0.80 - 1.50 mg/dL [facility] Sodium 138 135 - 145 mmol/L [facility] Potassium 4.2 3.5 - 5.0 mmol/L [facility] Comment: Please note: ??Patients with WBC >100,000 may have falsely elevated Potassium levels. ??For accurate Potassium quantification in these patients send serum separator tube (gold top) for subsequent determinations. ??Contact the Clinical Chemistry Laboratory if there are any questions. Chloride 104 98 - 107 mmol/L [facility] Carbon Dioxide 23 22 - 31 mmol/L [facility] Anion Gap 11 5 - 15 mmol/L [facility] Calcium 9.1 8.5 - 10.5 mg/dL [facility] Protein, Total 6.8 6.1 - 8.0 g/dL [facility] Albumin 4.1 3.2 - 5.2 g/dL [facility] Aspartate Aminotransferase 65(H) 0 - 39 unit/L [facility] Alanine Aminotransferase 166(H) 0 - 55 unit/L [facility] Alkaline Phosphatase 131(H) 40 - 130 unit/L [facility] Bilirubin, Total 0.5 0.2 - 1.3 mg/dL [facility] Est Glomerular Filtration Rate 53(L) >=60 mL/min/1. 73 m?? [facility] Comment: This patient? s estimated [...] Lab Kelin Carlos APRN CHEMISTRY ORDERABL ES [facility] [place] [address] documented in this encounter Visit Diagnoses Diagnosis Renal cell carcinoma, unspecified laterality Medication management Encounter for long-term (current) use of other medications documented in this encounter Care Teams Slip Cover Estimator Relationship Specialty Start Date End Date Juan Dempsey MD [address] [place] [address] PCP - General Emergency Medicine 08/20/21 documented as of this encounter
--- OUTSIDE RECORDS SUMMARY | 2024-03-09 10:20 | XMS_ITS | Encounter Summary ---
Author Organization [facility] Address [facility] [place] [address] Care Team Providers Care Tub Rider Name Role Phone Juan Dempsey MD Primary Care Provider [phone] Encounter Details Date Type Department Care Team (Late st Contact Info) Description 08/29/2021 Telephone Urology at [facility] [place] [address] Jordan Hou MD [facility] [place] [address] Social History Tobacco Use Types Packs/Day Years [...] 10:30 AM EST Laboratory Appointment Lab at [facility] Hematology Oncology [address] [place] [address] 03/29/2024 12:[address] [place] [address] Albino Bartholomew MD [facility] [place] [address] 04/05/2024 10:00 AM EST Office Visit Hematology [place] [address] Albino Bartholomew MD [facility] DR [place]AT[place] [address] documented as of this encounter Visit Diagnoses Not on filedocumented in this encounter Care Teams Tub Rider Relationship Specialty Start Date End Date Juan Dempsey MD [address] [place] [address] PCP - General Emergency Medicine 08/20/21 documented as of this encounter
--- OUTSIDE RECORDS SUMMARY | 2024-03-09 10:20 | XMS_ITS | Encounter Summary ---
Author Organization [facility] Address [facility] [place] [address] Care Team Providers Care Punch Hand Name Role Phone Juan Dempsey MD Primary Care Provider [phone] Encounter Details Date Type Department Care Team (Late st Contact Info) Description 09/01/2021 Telephone [place]ematology [place] [address] Mary Collazo, RN Social History [...] RN - 09/01/2021 7:26 AM EDT Follow-up: [facility] 09/01 [facility]. Following LFT's. 100 mg/day x 3 [...] days (09/02- 09/04). Repeat CMP 09/04 @ [facility] & triage nurse willf/u on results. Reinforced to pt to continue to push po fluids. Pt verbalized agreement with plan and knows to call clinic with any concerns and/or questions. Message sent to traveling secretary to request order for CMP to be faxed to [facility] for 09/04. documented in this encounter Plan of Treatment Upcoming Encounters Date Type Department Care Team (Late st Contact Info) Description 03/29/2024 10:30 AM EST Laboratory Appointment Lab at [facility] Hematology Oncology [address] [place] [address] 03/29/2024 12:[address] [place] [place] [address] Albino Bartholmoew MD [facility] DR HEMATOLOGY [place] [address] 04/05/2024 10:00 AM EST Office Visit [place]ematology [place] [address] Albino Bartholomew MD [facility] DR HEMATOLOGY [place] [address] documented as of this encounter Procedures Procedure [...] Agency Comment Spec In Lab Kelin Carlos INSURANCE UNDERWRITER SALES CHEMISTRY ORDERABL ES LABORATORY [address] [place] [address] * (ABNORMAL) Comprehensive metabolic panel (non-fasting) (09/01/2021 [...] Blood 09/01/2021 9:09 AM EDT Historical Provider CHEMISTRY ORDERAB LES documented in this encounter Visit Diagnoses Diagnosis Elevated LFTs Other abnormal blood chemistry documented in this encounter Care Teams Punch Hand Relationship Specialty Start Date End Date Juan Dempsey MD [address] [place] [address] PCP - General Emergency Medicine 08/20/21 documented as of this encounter
--- OUTSIDE RECORDS SUMMARY | 2024-03-09 10:20 | XMS_ITS | Encounter Summary ---
Author Organization [facility] Address [facility] [place] [address] Care Team Providers Care Band Aid Machine Operator Name Role Phone Juan Dempsey MD Primary Care Provider [phone] Reason for Visit * Reason Comments Follow-up Encounter Details Date Type Department Care Team (Late st Contact Info) Description 08/27/2021 1:30 PM EDT Office Visit Hematology [place] [address] HEMATOLOGY AND ONCOLOGY [place], [place] [id number] Toxic hepatitis; Renal cell carcinoma, unspecified laterality; [...] were not included. 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 Pt prefers to get labs at [facility]. We'll send orders and I'll ask our livestock yard supervisor to f/u on results. Advised pt to [...] [facility] Hematology Oncology [address] [place] [address] 03/29/2024 12:[address] [place] [address] Ablino Bartholomew MD [facility] DR HEMATOLOGY [place] [address] 04/05/2024 10:00 AM EST Office Visit Hematology [place] [address] Albino Bartholomew MD [facility] DR HEMATOLOGY [place] [address] documented as of this encounter Visit Diagnoses Diagnosis Toxic hepatitis Hepatitis, unspecified Renal cell carcinoma, unspecified laterality Elevated LFTs Other abnormal blood chemistry Renal function impairment Unspecified disorder of kidney and ureter Rash Rash and other nonspecific skin eruption documented in this encounter Care Teams Band Aid Machine Operator Relationship Specialty Start Date End Date Juan Dempsey MD [address] [place] [address] PCP - General Emergency Medicine 08/20/21 documented as of this encounter
--- OUTSIDE RECORDS SUMMARY | 2024-03-09 10:20 | XMS_ITS | Encounter Summary ---
Author Organization [facility] Address [facility] [place] [address] Care Team Providers Care Agricultural Engineer Name Role Phone Juan Dempsey MD Primary Care Provider [phone] Encounter Details Date Type Department Care Team (Late st Contact Info) Description 09/04/2021 Telephone Hematology [place] [address] Mary Collazo, RN Social History [...] 09/04/2021 2:45 PM EDT Message received from neurosurgical physician assistant: Triage- F/U CMP 09/04 [facility]. Pred 60 09/02-09/04. Following LFT's & BUN/Cret. Lab results received, entered into [facility]H & reviewed with Jennifer Carlos APRN. Per Jennifer Carlos APRN: Have pt taper prednisone to 40 mg po daily for 3 days. Repeat CMP 09/08 @ [facility]. Further prednisone taper as follows: Prednisone 40 [...] 09/10. Pt verbalized understanding. Message sent to neurosurgical physician assistant to request order for CMP to be faxed to [facility] for 09/08. Triage nurse to f/uon results. documented in this encounter Plan of Treatment Upcoming Encounters Date Type Department Care Team (Late st Contact Info) Description 03/29/2024 10:30 AM EST Laboratory Appointment Lab at [facility] Hematology Oncology [address] [place] [address] 03/29/2024 12:[address] [place] [address] Albino Bartholomew MD [facility] HEMATOLOGY AND ONCOLOGY [place], [place] [address] 04/05/2024 10:00 AM EST Office Visit Hematology [place] [address] Albino Bartholomew MD [facility] [place] [address] documented as of this encounter Procedures Procedure [...] on filedocumented in this encounter Care Teams Agricultural Engineer Relationship Specialty Start Date End Date Juan Dempsey MD [address] [place] [address] PCP - General Emergency Medicine 08/20/21 documented as of this encounter
--- OUTSIDE RECORDS SUMMARY | 2024-03-09 10:20 | XMS_ITS | Encounter Summary ---
Author Organization [facility] Address [facility] [place] [address] Care Team Providers Care Curriculum Facilitator Name Role Phone Juan Dempsey MD Primary Care Provider [phone] Encounter Details Date Type Department Care Team (Late st Contact Info) Description 09/11/2021 External Results Hematology [place] [address] Galina Coello Social History Tobacco Use Types [...] 10:30 AM EST Laboratory Appointment Lab at [facility] Hematology Oncology [address] [place] [address] 03/29/2024 12:[address] [place] [address] Albino Bartholomew MD [facility] DR HEMATOLOGY [place] [address] 04/05/2024 10:00 AM EST Office Visit Hematology [place] [address] Albino Bartholomew MD [facility] DR HEMATOLOGY [place] [address] documented as of this encounter Procedures Procedure [...] on filedocumented in this encounter Care Teams Curriculum Facilitator Relationship Specialty Start Date End Date Juan Dempsey MD [address] [place] [address] PCP - General Emergency Medicine 08/20/21 documented as of this encounter
--- OUTSIDE RECORDS SUMMARY | 2024-03-09 10:20 | XMS_ITS | Encounter Summary ---
Author Organization [facility] Address [facility] [place] [address] Care Team Providers Care Fire Marshal Refinery Name Role Phone Juan Dempsey MD Primary Care Provider [phone] Encounter Details Date Type Department Care Team (Late st Contact Info) Description 09/18/2021 Orders Only Hematology [place] [address] Kelin Carlos, HYPERCIL CORE TRANSFORMER ASSEMBLER [address] [place] [address] DR HEMATOLOGY AND ONCOLOGY [place], [place] [id number] Renal cell carcinoma, unspecified laterality; Elevated LFTs [...] [facility] Hematology Oncology [address] [place] [address] 03/29/2024 12:[address] [place] [address] Albino Bartholomew MD [facility] [address] [place] [address] 04/05/2024 10:00 AM EST Office Visit Hematology [place] [address] Albino Bartholomew MD [facility] [address] [place] [address] documented as of this encounter Visit Diagnoses Diagnosis Renal cell carcinoma, unspecified laterality Elevated LFTs Other abnormal blood chemistry documented in this encounter Care Teams Fire Marshal Refinery Relationship Specialty Start Date End Date Juan Dempsey MD [address] [place] [address] PCP - General Emergency Medicine 08/20/21 documented as of this encounter
--- OUTSIDE RECORDS SUMMARY | 2024-03-09 10:20 | XMS_ITS | Encounter Summary ---
Author Organization [facility] [place] [address] Care Team Providers Care Repairer Finished Metal Name Role Phone Lisbet Solitario MD Primary Care Provider [phone] Reason for Visit * Reason Onset Date Comments Error 08/11/2021 Encounter Details Date Type Department Care Team (Late st Contact Info) Description 08/11/2021 Telephone Hematology [place] [address] Noemí Barba, RN Error Social [...] [facility] [place] [place] [address] [place] [address] 03/29/2024 12:[address] [place] [address] [facility] DR HEMATOLOGY [place] [address] 04/05/2024 10:00 AM EST Office Visit Hematology [place] [address] Albino Bartholomew MD [facility] DR HEMATOLOGY [place] [address] documented as of this encounter Visit Diagnoses Not on filedocumented in this encounter Care Teams Repairer Finished Metal Relationship Specialty Start Date End Date Lisbet Solitario MD [address] [place] [address] PCP - General Family Medicine 01/30/16 08/19/21 documented as of this encounter
--- OUTSIDE RECORDS SUMMARY | 2024-03-09 10:20 | XMS_ITS | Encounter Summary ---
Author Organization [facility] Address [facility] [place] [address] Care Team Providers Care Database Administration Project Manager Name Role Phone Juan Dempsey MD Primary Care Provider [phone] Reason for Visit * Reason Onset Date Comments Error 09/04/2021 Encounter Details Date Type Department Care Team (Late st Contact Info) Description 09/04/2021 Telephone Hematology [place] [address] Daxa Arriola RN Error Social [...] [facility] [place] [place] [address] [place] [address] 03/29/2024 12:[address] [place] [address] Albino Bartholomew MD [facility] HEMATOLOGY [place] [address] 04/05/2024 10:00 AM EST Office Visit Hematology [place] [address] Albino Bartholomew MD [facility] HEMATOLOGY [place] [address] documented as of this encounter Visit Diagnoses Not on filedocumented in this encounter Care Teams Database Administration Project Manager Relationship Specialty Start Date End Date Juan Dempsey MD [address] [place] [address] PCP - General Emergency Medicine 08/20/21 documented as of this encounter
--- OUTSIDE RECORDS SUMMARY | 2024-03-09 10:20 | XMS_ITS | Encounter Summary ---
Author Organization [facility] Address [facility] Michael [facility] [place] [place] [address] Care Team Providers Care Siderographist Name Role Phone Lisbet Solitario MD Primary Care Provider [phone] Reason for Referral * Diagnostic Test (Routine) - Closed Specialty Diagnoses / Procedures Referred By Contac t Referred To Contact Radiology Diagnoses Renal cell carcinoma, unspecified laterality Procedures CT Chest Abdomen Pelvis w Contrast (Generic) Jose Awad, [facility] DR HEMATOLOGY/[place] [address] [facility] [place] [address] Referral ID Status Reason Start Date Expiration Date V isits Requested Visits Authorized [id number] Closed Specialty Service Requested 07/16/2021 01/16/2023 1 1 Reason for Visit * Reason Comments Establish Care * Consultation (Routine) - Closed Specialty Diagnoses / Procedures Referred By Contac t Referred To Contact Hematology and Oncology Diagnoses Renal cell carcinoma, unspecified laterality Jordan Hou MD [facility] [place] [address] [facility] Hem Onc [address] [place] [address] Referral ID Status Reason Start Date Expiration Date V isits Requested Visits Authorized [id number] Closed Consult, Test & Treat 07/07/2021 07/07/2022 1 1 Encounter Details Date Type Department Care Team (Late st Contact Info) Description 07/16/2021 10:30 AM EDT Office Visit Hematology [place] [address] Albino Bartholomew MD [facility] [place] [address] Jose Awad, [facility] HEMATOLOGY/[place] [address] [place] [address] Renal cell carcinoma, unspecified laterality Social History [...] this encounter Progress Notes * Jose Awad, DO - 07/16/2021 10:30 AM EDT Images from the original note were not included. 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 Albino Bartholomew MD Hematology/Oncology Section, [facility] Pantry Attendantquality control associate, [facility] [phone] documented in this encounter Plan of Treatment Upcoming Encounters Date Type Department Care Team (Late st Contact Info) Description 03/29/2024 10:30 AM EST Laboratory Appointment Lab at [facility] Hematology Oncology [address] [place] [address] 03/29/2024 12:[address] [place] [address] Albino Bartholomew MD [facility] [place] [address] 04/05/2024 10:00 AM EST Office Visit Hematology [place] [address] Albino Bartholomew MD [facility] [place] [address] documented as of this encounter Results * [...] who have questions please contact the health dog daycare provider that requested your imaging first. ? Electronically signed by: German Morel MD, [facility] ([phone]), at 07/20/2021 1:26 PM Narrative 07/20/2021 1:26 [...] patients who have questions please contactthe health dog daycare provider that requested your imaging first. Electronically signed by: German Morel MD, [facility]([phone]), at 07/20/2021 1:26 PM Albino Bartholomew MD IMG CT ORDERABLES documented in this encounter Visit Diagnoses Diagnosis Renal cell carcinoma, unspecified laterality Renal cell carcinoma, unspecified laterality documented in this encounter Care Teams Siderographist Relationship Specialty Start Date End Date Lisbet Solitario MD [address] [place] [address] PCP - General Family Medicine 01/30/16 08/19/21 documented as of this encounter
--- OUTSIDE RECORDS SUMMARY | 2024-03-09 10:20 | XMS_ITS | Encounter Summary ---
Author Organization [facility] Address [facility] [place] [address] Care Team Providers Care Head Chef Name Role Phone Juan Dempsey MD Primary Care Provider [phone] Encounter Details Date Type Department Care Team (Late st Contact Info) Description 08/29/2021 Telephone [place]ology [place] [address] Mary Collazo, RN Social History [...] 100 mg/day today. Needs torepeat CMP at [facility] on Wednesday am (external orders in). Daxa, [...] to provider to review. Per Jennifer Carlos, ELECTRICAL FITTER: Some improvement on LFTs - let's taper to 80 mg/day x 3 days (Sat, Wed, Wed) and repeat CMP on Wednesday at [facility]. I'll put in order now. Also, please [...] day. He will have labs 09/[address] [facility]. Triage nurse to f/u on results & [...] [facility] Hematology Oncology [address] [place] [address] 03/29/2024 12:[address] [place] [place] [phone] Albino Bartholomew MD [facility] DR HEMATOLOGY [place] [address] 04/05/2024 10:00 AM EST Office Visit [place]ology [place] [phone] Albino Bartholomew MD [facility] DR HEMATOLOGY [place] [address] documented as of this encounter Procedures Procedure [...] Blood 08/29/2021 8:36 AM EDT Historical Provider MD CHEMISTRY ORDERAB LES documented in this encounter Visit Diagnoses Not on filedocumented in this encounter Care Teams Head Chef Relationship Specialty Start Date End Date Juan Dempsey MD [address] [place] [address] PCP - General Emergency Medicine 08/20/21 documented as of this encounter
--- OUTSIDE RECORDS SUMMARY | 2024-03-09 10:20 | XMS_ITS | Encounter Summary ---
Author Organization [facility] Address [facility] [place] [address] Care Team Providers Care Inventory Control Coordinator Name Role Phone Juan Dempsey MD Primary Care Provider [phone] Encounter Details Date Type Department Care Team (Late st Contact Info) Description 08/20/2021 Telephone [place] [phone] NehaAugust Social History Tobacco Use Types Packs/Day [...] - 08/20/2021 4:22 PM EDT Cristofer Tenorio [id number] Diagnosis/Indication: SCREENING, POSITIVE COLOGARD 1. Have you ever had a/an Colonoscopy before? Yes: Date 2007 [facility] If yes, did you have any problems [...] to patient: You must have a responsible green party who will drive you to your procedure, [...] at [facility] Hematology Oncology [address] [place] [address] 03/29/2024 12:[address] [place] [place] [address] Albino Bartholomew MD [facility] [place] [address] 04/05/2024 10:00 AM EST Office Visit [place]ology [place] [address] Albino Bartholomew MD [facility] [place] [address] documented as of this encounter Visit Diagnoses Not on filedocumented in this encounter Care Teams Inventory Control Coordinator Relationship Specialty Start Date End Date Juan Dempsey MD [address] [place] [address] PCP - General Emergency Medicine 08/20/21 documented as of this encounter
--- OUTSIDE RECORDS SUMMARY | 2024-03-09 10:20 | XMS_ITS | Encounter Summary ---
Author Organization [facility] Address [facility] [place] [address] Care Team Providers Care Coil Tier Name Role Phone Juan Dempsey MD Primary Care Provider [phone] Encounter Details Date Type Department Care Team (Latest Contact Info) Description 08/27/2021 12:06 PM EDT - 08/27/2021 11:59 PM EDT Hospital Encounter Hematology [place] [phone] Renal cell carcinoma, unspecified laterality; Medication management [...] [facility] Oncology [address] [place] [address] 03/29/2024 12:[address] [place] [address] Albino Bartholomew MD [facility] HEMATOLOGY [place] [address] 04/05/2024 10:00 AM EST Office Visit Hematology and Oncology at [facility] [place] [address] Albino Bartholomew MD [facility] [place] [address] documented as of this encounter Procedures Procedure [...] 12:16 PM EDT) Neutrophil % 60.2 % [facility] Neutrophil Absolute 3.65 1.70 - 6.10 x10(3)/[facility] Lymph % 24.1 % [facility] Lymphocytes Abs 1.5 0.9 - 3.2 x10(3)/[facility] Monocyte % 10.9 % [facility] Monocyte Abs 0.7 0.3 - 0.9 x10(3)/[facility] Eos % 3.6 % [facility] Eosinophils Abs 0.2 0.0 - 0.4 x10(3)/[facility] Basophil % 1.0 % [facility] Baso Absolute 0.1 0.0 - 0.1 x10(3)/[facility] Immature Gran % 0.20 % [facility] Comment: Immature granulocytes(IG's)percentage and absolute count will include metamyelocytes, myelocytes, and promyelocytes. Blood smears from CBCs yielding IG's will be scanned manually for concordance. If this scan disagrees with the automated IG or if promyelocytes are noted, a manual differential will be performed. Immature Gran Absolute 0.01 0.00 - 0.04 x10(3)/[facility] Blood 08/27/2021 12:1 6 PM EDT 08/27/2021 12:26 PM EDT Narrative Resulting Agency Comment Spec In Lab Kelin Carlos APRN HEMATOLOGY ORDERAB LES [facility] [place] [address] * (ABNORMAL) Hemogram (08/27/2021 12:16 PM EDT) White Blood Cell 6.1 4.0 - 9.5 x10(3)/mc L [facility] Red Blood Cell 4.54(L) 4.58 - 5.54 x10(6)/mc L [facility] Hemoglobin 13.0(L) 13.7 - 16.5 g/dL [facility] Hematocrit 39.7(L) 40.5 - 48.5 % [facility] Mean Cell Volume 87.4 82.9 - 93.1 fL [facility] Mean Cell Hemoglobin 28.6 27.5 - 32.1 pg [facility] Mean Cell Hemoglobin Concentration 32.7 32.0 - 35.7 g/dL [facility] Platelet 187 145 - 357 x10(3)/mc L [facility] RDW Standard Deviation 45.5(H) 36.0 - 45.0 fL [facility] RDW coefficient of variation 14.1(H) 11.4 - 13.8 % [facility] Mean Platelet Volume 9.4 7.6 - 12.9 fL [facility] NRBC% auto 0.0 % [facility] NRBC Absolute 0.000 0.000 - 0.000 x10(3)/mc L [facility] Blood 08/27/2021 12:1 6 PM EDT 08/27/2021 12:26 PM EDT Narrative Resulting Agency Comment Spec In Lab Kelin Carlos APRN HEMATOLOGY ORDERAB LES Performing Organization Address City/[facility]/ZIP Co de Phone Number [facility] [place] [address] * T4, free (08/27/2021 12:16 PM EDT) [facility] Free T4 1.19 0.93 - 1.70 ng/dL [facility] Comment: Reference Interval (ng/dL): Females: ??First Trimester: 0.97-1.68 ??Second Trimester: 0.77-1.51 ??Third Trimester: 0.77-1.49 Blood 08/27/2021 12:1 6 PM EDT 08/27/2021 12:26 PM EDT Narrative Resulting Agency Comment Spec In Lab Kelin Carlos APRN CHEMISTRY ORDERABL ES Performing Organization Address City/[facility]/ZIP Co de Phone Number [facility] [place] [address] * TSH (08/27/2021 12:16 PM EDT) Thyroid Stimulating Hormone 3.83 0.27 - 4.20 mcIU/mL [facility] Comment: Reference Interval (mcIU/mL): Females: ??First Trimester: 0.23-3.88 ??Second Trimester: 0.22-3.90 ??Third Trimester: 0.44-4.66 Blood 08/27/2021 12:1 6 PM EDT 08/27/2021 12:26 PM EDT Narrative Resulting Agency Comment Spec In Lab Kelin Carlos CHILD CARE ATTENDANT CHEMISTRY ORDERABL ES [facility] [place] [address] * (ABNORMAL) Comprehensive metabolic panel (non-fasting) (08/27/2021 12:16 PM EDT) Pathologist [facility] Glucose 115 65 - 199 mg/dL [facility] Comment:Diabetes: >=200 mg/d L plus symptoms Blood Urea Nitrogen 28(H) 10 - 20 mg/dL [facility] Creatinine 1.67(H) 0.80 - 1.50 mg/dL [facility] Sodium 139 135 - 145 mmol/L [facility] Potassium 4.7 3.5 - 5.0 mmol/L [facility] Comment: Please note: ??Patients with WBC >100,000 may have falsely elevated Potassium levels. ??For accurate Potassium quantification in these patients send serum separator tube (gold top) for subsequent determinations. ??Contact the Clinical Chemistry Laboratory if there are any questions. Chloride 104 98 - 107 mmol/L [facility] Carbon Dioxide 26 22 - 31 mmol/L [facility] Anion Gap 9 5 - 15 mmol/L [facility] Calcium 9.5 8.5 - 10.5 mg/dL [facility] Protein, Total 7.4 6.1 - 8.0 g/dL [facility] Albumin 4.4 3.2 - 5.2 g/dL [facility] Aspartate Aminotransferase 308(H) 0 - 39 unit/L [facility] Alanine Aminotransferase 707(H) 0 - 55 unit/L [facility] Alkaline Phosphatase 198(H) 40 - 130 unit/L [facility] Bilirubin, Total 0.6 0.2 - 1.3 mg/dL [facility] Est Glomerular Filtration Rate 42(L) >=60 mL/min/1. 73 m?? [facility] Comment: This patient? s [...] Lab Kelin Carlos APRN CHEMISTRY ORDERABL ES [facility] [place] [address] documented in this encounter Visit Diagnoses Diagnosis Renal cell carcinoma, unspecified laterality Medication management Encounter for long-term (current) use of other medications documented in this encounter Care Teams Coil Tier Relationship Specialty Start Date End Date Juan Dempsey MD [address] [place] [address] PCP - General Emergency Medicine 08/20/21 documented as of this encounter
--- OUTSIDE RECORDS SUMMARY | 2024-03-09 10:20 | XMS_ITS | Encounter Summary ---
Author Organization [facility] Address [facility] [place] [address] Care Team Providers Care Mainspring Former Name Role Phone Juan Dempsey MD Primary Care Provider [phone] Encounter Details Date Type Department Care Team (Late st Contact Info) Description 09/24/2021 Telephone Hematology [place] [address] Noemí Barba RN Social History [...] provider- Jennifer Carlos APRN: CMP weekly at [facility] to monitor LFTs. Lab results reviewed with [...] a CMP drawn again on 10/01 at [facility]. They have standing orders already andhe will walk in for this lab draw. Reviewed we would call him on 10/01 to review lab results and discu ss further pred taper. He was encouraged to call back should he have further questions or concerns.He verbalized understanding. probation worker to follow-up on CMP results on 10/01 (following LFT's) and call Cristofer with results and planto taper pred. 60mg/day x 1 week 40mg/day x 1 week 20mg/day x 1 week 10mg/day x 1 week documented in this encounter Plan of Treatment Upcoming Encounters Date Type Department Care Team (Late st Contact Info) Description 03/29/2024 10:30 AM EST Laboratory Appointment Lab at [facility] Hematology Oncology [address] [place] [address] 03/29/2024 12:[address] [place] [phone] Albino Bartholomew MD [facility] DR [place] [address] 04/05/2024 10:00 AM EST Office Visit Hematology [place] [address] Albino Bartholomew MD [facility] DR [place] [address] documented as of this encounter Procedures Procedure [...] on filedocumented in this encounter Care Teams Mainspring Former Relationship Specialty Start Date End Date Juan Dempsey MD [address] [place] [address] PCP - General Emergency Medicine 08/20/21 documented as of this encounter
--- OUTSIDE RECORDS SUMMARY | 2024-03-09 10:20 | XMS_ITS | Encounter Summary ---
Author Organization [facility] Address [facility] [place] [address] Care Team Providers Care Air Export Coordinator Name Role Phone Juan Dempsey MD Primary Care Provider [phone] Encounter Details Date Type Department Care Team (Late st Contact Info) Description 09/17/2021 Orders Only Hematology [place] [phone] Albino Bartholomew MD [facility] DR [place] [address] Social History Tobacco Use Types Packs/Day Years [...] [facility] H[facility] Oncology [address] [place] [address] 03/29/2024 12:[address] [place] [address] Albino Bartholomew MD [facility] DR [place] [address] 04/05/2024 10:00 AM EST Office Visit Hematology [place] [address] Albino Bartholomew MD [facility] DR [place] [address] documented as of this encounter Visit Diagnoses Not on filedocumented in this encounter Care Teams Air Export Coordinator Relationship Specialty Start Date End Date Juan Dempsey MD [address] [place] [address] PCP - General Emergency Medicine 08/20/21 documented as of this encounter
--- OUTSIDE RECORDS SUMMARY | 2024-03-09 10:20 | XMS_ITS | Encounter Summary ---
Author Organization [facility] Address [facility] [place] [address] Care Team Providers Care Director Title Name Role Phone Juan Dempsey MD Primary Care Provider [phone] Encounter Details Date Type Department Care Team (Late st Contact Info) Description 09/05/2021 Orders Only [place]ematology [place] [phone] Noemí Barba RN Renal cell carcinoma, unspecified [...] [facility] Hematology Oncology [address] [place] [address] 03/29/2024 12:[address] [place] [place] [address] Albino Bartholomew MD [facility] DR HEMATOLOGY [place] [address] 04/05/2024 10:00 AM EST Office Visit Hematology [place] [address] Albino Bartholomew MD [facility] DR HEMATOLOGY [place] [address] Scheduled Orders Name Type Priority Associated Diagnoses Orde r Schedule Comprehensive metabolic panel (non-fasting) Lab STAT Renal cell carcinoma, unspecified laterality Expected: 09/08/2021 (Approximate), Expires: 03/10/2022 documented as of this encounter Visit Diagnoses Diagnosis Renal cell carcinoma, unspecified laterality documented in this encounter Care Teams Director Title Relationship Specialty Start Date End Date Juan Dempsey MD [address] [place] [address] PCP - General Emergency Medicine 08/20/21 documented as of this encounter
--- OUTSIDE RECORDS SUMMARY | 2024-03-09 10:20 | XMS_ITS | Encounter Summary ---
Author Organization [facility] Address [facility] [place] [address] Care Team Providers Care Operations Research Director Name Role Phone Juan Dempsey MD Primary Care Provider [phone] Encounter Details Date Type Department Care Team (Late st Contact Info) Description 09/08/2021 Telephone Hematology [place] [address] Mary Collazo, RN Social History [...] 09/08/2021 7:21 AM EDT Follow-up: Triage: F/U [facility] 09/08 [facility]. Following LFT's. Pred taper as follows: Prednisone 40 mg po 09/05-09/07 Prednisone 20 mg po 09/08-09/10 Prednisone 10 mg po 09/11-09/13 Lab results received, entered into ED-H & sent to provider to review. Pt currently on prednisone 20 mg po daily & will be on this for a total of 3 days (09/08-09/10). Per Jennifer Carlos APRN: Yes, let's have him re-check labs ([facility]) on 09/10. Would you mind pending [...] he would like to do this @ [facility] again. If labs stable plan is to taper prednisone to 10 mg po daily 09/11-09/13. Pt verbalized agreement with plan and knows to call clinic with any concerns and/or questions. Message sent to department secretary to request order for CMP be faxed to [facility]. Triage nurse to f/u on results. documented in this encounter Plan of Treatment Upcoming Encounters Date Type Department Care Team (Late st Contact Info) Description 03/29/2024 10:30 AM EST Laboratory Appointment Lab at [facility] Hematology Oncology [address] [place] [address] 03/29/2024 12:[address] [place] [address] Albino Bartholomew MD [facility] DR HEMATOLOGY [place] [address] 04/05/2024 10:00 AM EST Office Visit Hematology [place] [address] Albino Bartholomew MD [facility] DR HEMATOLOGY [place] [address] Scheduled Orders Name Type Priority Associated Diagnoses [...] chemistry documented in this encounter Care Teams Operations Research Director Relationship Specialty Start Date End Date Juan Dempsey MD [address] [place] [address] PCP - General Emergency Medicine 08/20/21 documented as of this encounter
--- OUTSIDE RECORDS SUMMARY | 2024-03-09 10:20 | XMS_ITS | Encounter Summary ---
Author Organization Formerly [facility], Later [facility] Address [facility] [place] [address] Care Team Providers Care Supervisor Display Fabrication Name Role Phone Juan Dempsey MD Primary Care Provider [phone] Encounter Details Date Type Department Care Team (Late st Contact Info) Description 09/17/2021 1:30 PM EDT Office Visit Hematology [place] [phone] Albino Bartholomew MD [facility] DR HEMATOLOGY [place] [address] HEMATOLOGY AND ONCOLOGY [place], [place] [id number] Sara Loza MD [facility] DR HEMATOLOGY [place] [address] Renal cell carcinoma, unspecified laterality; Elevated LFTs; [...] from the original note were not included. 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. We'll send orders and I'll ask our sales and events coordinator to f/u on results. Advised pt [...] while on prednisone - CMP weekly at [facility] 10/08/21 for labs and clinic visit. CMP weekly at [facility] Sara Loza MD Hematology/Oncology Fellow Pager [phone] 09/17/21 Oncology Attending Addendum I personally reviewed the history, examined the patient, reviewed relevant labs and viewed recent radiographic images. I directly participated in management decisions. My exam and assessment concur with . Please refer to her comprehensive note for details. Albino Bartholomew MD Hematology/Oncology Section, [facility] Mechanical Engineering Coopdolly driver, [employer] [phone] documented in this encounter Plan of Treatment Upcoming Encounters Date Type Department Care Team (Late st Contact Info) Description 03/29/2024 10:30 AM EST Laboratory Appointment Lab at [facility] Hematology Oncology [address] [place] [address] 03/29/2024 12:[address] [place] [address] Albino Bartholomew MD [facility] DR HEMATOLOGY [place] [address] 04/05/2024 10:00 AM EST Office Visit Hematology [place] [phone] Albino Bartholomew MD [facility] DR HEMATOLOGY [place] [address] documented as of this encounter Results * TSH (10/08/2021 12:57 PM EDT) [facility] Thyroid Stimulating Hormone 1.18 0.27 - 4.20 mcIU/mL [facility] Comment: Reference Interval (mcIU/mL): Females: ??First Trimester: 0.23-3.88 ??Second Trimester: 0.22-3.90 ??Third Trimester: 0.44-4.66 Blood 10/08/2021 12:5 7 PM EDT 10/08/2021 1:24 PM EDT Narrative Resulting Agency Comment Spec In Lab Albino Bartholomew MD CHEMISTRY ORDERABLES [facility] [place] [address] * (ABNORMAL) Comprehensive metabolic panel (non-fasting) (10/08/2021 12:57 PM EDT) [facility] Glucose 134 65 - 199 mg/dL [facility] Comment:Diabetes: >=200 mg/d L plus symptoms Blood Urea Nitrogen 41(H) 10 - 20 mg/dL [facility] Creatinine 1.68(H) 0.80 - 1.50 mg/dL [facility] Sodium 137 135 - 145 mmol/L [facility] Potassium 4.8 3.5 - 5.0 mmol/L [facility] Comment: Please note: ??Patients with WBC >100,000 may have falsely elevated Potassium levels. ??For accurate Potassium quantification in these patients send serum separator tube (gold top) for subsequent determinations. ??Contact the Clinical Chemistry Laboratory if there are any questions. Chloride 102 98 - 107 mmol/L [facility] Carbon Dioxide 24 22 - 31 mmol/L [facility] Anion Gap 11 5 - 15 mmol/L [facility] Calcium 9.1 8.5 - 10.5 mg/dL [facility] Protein, Total 6.4 6.1 - 8.0 g/dL [facility] Albumin 4.0 3.2 - 5.2 g/dL [facility] Aspartate Aminotransferase 25 0 - 39 unit/L [facility] Alanine Aminotransferase 45 0 - 55 unit/L [facility] Alkaline Phosphatase 96 40 - 130 unit/L [facility] [...] In Lab Albino Bartholomew MD CHEMISTRY ORDERABLES [facility] [place] [phone] documented in this encounter Visit Diagnoses Diagnosis Renal cell carcinoma, unspecified laterality Elevated LFTs Other abnormal blood chemistry Medication management Encounter for long-term (current) use of other medications documented in this encounter Care Teams Supervisor Display Fabrication Relationship Specialty Start Date End Date Juan Dempsey MD [address] [place] [address] PCP - General Emergency Medicine 08/20/21 documented as of this encounter
--- OUTSIDE RECORDS SUMMARY | 2024-03-09 10:20 | XMS_ITS | Encounter Summary ---
Author Organization [facility] Address [facility] [place] [address] Care Team Providers Care Assembler Utility Buildings Name Role Phone Juan Dempsey MD Primary Care Provider [phone] Encounter Details Date Type Department Care Team (Late st Contact Info) Description 08/29/2021 Orders Only Hematology [place] [address] Kelin Carlos, WRAPAROUND FACILITATOR [address] [place] [address] DR HEMATOLOGY AND ONCOLOGY [place], [place] [id number] Elevated LFTs Social History Tobacco Use Types [...] [facility] Hematology Oncology [address] [place] [address] 03/29/2024 12:[address] [place] [phone] Albino Bartholomew MD [facility] DR [place] [address] 04/05/2024 10:00 AM EST Office Visit Hematology [place] [address] Albino Bartholomew MD [facility] DR [place] [address] documented as of this encounter Visit Diagnoses Diagnosis Elevated LFTs Other abnormal blood chemistry documented in this encounter Care Teams Assembler Utility Buildings Relationship Specialty Start Date End Date Juan Dempsey MD [address] [place] [address] PCP - General Emergency Medicine 08/20/21 documented as of this encounter
--- OUTSIDE RECORDS SUMMARY | 2024-03-09 10:20 | XMS_ITS | Encounter Summary ---
Author Organization [facility] Address [facility] [place] [address] Care Team Providers Care Courtroom Clerk Name Role Phone Lisbet Solitario MD Primary Care Provider [phone] Encounter Details Date Type Department Care Team (Latest Contact Info) Description 08/07/2021 8:59 AM EDT - 08/07/2021 9:00 AM EDT Hospital Encounter Hematology [place] [phone] Renal cell carcinoma, unspecified laterality; Medication management [...] [facility] Hematology Oncology [address] [place] [address] 03/29/2024 12:[address] [place] [address] Albino Bartholomew MD [facility] DR HEMATOLOGY [place] [address] 04/05/2024 10:00 AM EST Office Visit Hematology [place] [address] Albino Bartholomew MD [facility] DR HEMATOLOGY [place] [address] documented as of this encounter Procedures Procedure [...] 9:11 AM EDT) Neutrophil % 71.7 % [facility] Neutrophil Absolute 5.40 1.70 - 6.10 x10(3)/[facility] Lymph % 18.1 % [facility] Lymphocytes Abs 1.4 0.9 - 3.2 x10(3)/[facility] Monocyte % 5.4 % [facility] Monocyte Abs 0.4 0.3 - 0.9 x10(3)/[facility] Eos % 2.9 % [facility] Eosinophils Abs 0.2 0.0 - 0.4 x10(3)/[facility] Basophil % 1.5 % [facility] Baso Absolute 0.1 0.0 - 0.1 x10(3)/[facility] Immature Gran % 0.40 % [facility] Comment: Immature granulocytes(IG's)percentage and absolute count will include metamyelocytes, myelocytes, and promyelocytes. Blood smears from CBCs yielding IG's will be scanned manually for concordance. If this scan disagrees with the automated IG or if promyelocytes are noted, a manual differential will be performed. Immature Gran Absolute 0.03 0.00 - 0.04 x10(3)/[facility] Blood 08/07/2021 9:11 AM EDT 08/07/2021 9:33 AM EDT Narrative Resulting Agency Comment Spec In Lab Jose Awad DO HEMATOLOGY ORDERABLE S [facility] [place] [address] * (ABNORMAL) Hemogram (08/07/2021 9:11 AM EDT) White Blood Cell 7.5 4.0 - 9.5 x10(3)/[facility] Red Blood Cell 4.85 4.58 - 5.54 x10(6)/mc L [facility] Hemoglobin 13.9 13.7 - 16.5 g/dL [facility] Hematocrit 42.6 40.5 - 48.5 % [facility] Mean Cell Volume 87.8 82.9 - 93.1 fL [facility] Mean Cell Hemoglobin 28.7 27.5 - 32.1 pg [facility] Mean Cell Hemoglobin Concentration 32.6 32.0 - 35.7 g/dL [facility] Platelet 213 145 - 357 x10(3)/ L [facility] RDW Standard Deviation 45.5(H) 36.0 - 45.0 fL [facility] RDW coefficient of variation 14.3(H) 11.4 - 13.8 % [facility] Mean Platelet Volume 9.5 7.6 - 12.9 fL [facility] NRBC% auto 0.0 % [facility] NRBC Absolute 0.000 0.000 - 0.000 x10(3)/mc L [facility] Blood 08/07/2021 9:11 AM EDT 08/07/2021 9:33 AM EDT Narrative Resulting Agency Comment Spec In Lab Jose Awad DO HEMATOLOGY ORDERABLE S [facility] [place] [address] * (ABNORMAL) Comprehensive metabolic panel (non-fasting) (08/07/2021 9:11 AM EDT) Glucose 124 65 - 199 mg/dL [facility] Comment:Diabetes: >=200 mg/d L plus symptoms Blood Urea Nitrogen 24(H) 10 - 20 mg/dL [facility] Creatinine 1.28 0.80 - 1.50 mg/dL [facility] Sodium 140 135 - 145 mmol/L [facility] Potassium 4.0 3.5 - 5.0 mmol/L [facility] Comment: Please note: ??Patients with WBC >100,000 may have falsely elevated Potassium levels. ??For accurate Potassium quantification in these patients send serum separator tube (gold top) for subsequent determinations. ??Contact the Clinical Chemistry Laboratory if there are any questions. Chloride 104 98 - 107 mmol/L [facility] Carbon Dioxide 26 22 - 31 mmol/L [facility] Anion Gap 10 5 - 15 mmol/L [facility] Calcium 9.7 8.5 - 10.5 mg/dL [facility] Protein, Total 7.8 6.1 - 8.0 g/dL [facility] Albumin 4.4 3.2 - 5.2 g/dL [facility] Aspartate Aminotransferase 23 0 - 39 unit/L [facility] Alanine Aminotransferase 49 0 - 55 unit/L [facility] Alkaline Phosphatase 153(H) 40 - 130 unit/L [facility] Bilirubin, Total 0.3 0.2 - 1.3 mg/dL [facility] Est Glomerular Filtration Rate 58(L) >=60 mL/min/1. 73 m?? [facility] Comment: This patient? s [...] Performing Organization Address [facility] Co de Phone Number [facility] [place] [address] * (ABNORMAL) TSH (08/07/2021 9:11 AM EDT) Thyroid Stimulating Hormone 5.28(H) 0.27 - 4.20 mcIU/mL [facility] Comment: Reference Interval (mcIU/mL): Females: ??First Trimester: 0.23-3.88 ??Second Trimester: 0.22-3.90 ??Third Trimester: 0.44-4.66 Blood 08/07/2021 9:11 AM EDT 08/07/2021 9:33 AM EDT Narrative Resulting Agency Comment Spec In Lab Albino Bartholomew MD CHEMISTRY ORDERABLES [facility] [place] [address] * T4, free (08/07/2021 9:11 AM EDT) Free T4 1.32 0.93 - 1.70 ng/dL [facility] Comment: Reference Interval (ng/dL): Females: ??First Trimester: 0.97-1.68 ??Second Trimester: 0.77-1.51 ??Third Trimester: 0.77-1.49 Blood 08/07/2021 9:11 AM EDT 08/07/2021 9:33 AM EDT Narrative Resulting Agency Comment Spec In Lab Albino Bartholomew MD CHEMISTRY ORDERABLES [facility] [place] [address] documented in this encounter Visit Diagnoses Diagnosis Renal cell carcinoma, unspecified laterality Medication management Encounter for long-term (current) use of other medications documented in this encounter Care Teams Courtroom Clerk Relationship Specialty Start Date End Date Lisbet Solitario MD [address] [place] [address] PCP - General Family Medicine 01/30/16 08/19/21 documented as of this encounter
--- OUTSIDE RECORDS SUMMARY | 2024-03-09 10:20 | XMS_ITS | Encounter Summary ---
Author Organization [place] [address] Care Team Providers Care Career Resource Technician Name Role Phone Lisbet Solitario MD Primary Care Provider [phone] Reason for Referral * Diagnostic Test (Routine) - Closed Specialty Diagnoses / Procedures Referred By Contac t Referred To Contact Radiology Diagnoses Renal cell carcinoma, unspecified laterality Procedures CT Chest Abdomen Pelvis w Contrast (Generic) Jose Awad [facility] HEMATOLOGY/[place] [address] [facility] [place] [address] Referral ID Status Reason Start Date Expiration Date V isits Requested Visits Authorized [id number] Closed Specialty Service Requested 07/16/2021 01/16/2023 1 1 Reason for Visit * Diagnostic Test (Routine) - Closed Specialty Diagnoses / Procedures Referred By Contac t Referred To Contact Radiology Diagnoses Renal cell carcinoma, unspecified laterality Procedures CT Chest Abdomen Pelvis w Contrast (Generic) Jose Awad [facility] HEMATOLOGY/[place] [address] [facility] [place] [address] Referral ID Status Reason Start Date Expiration Date V isits Requested Visits Authorized [id number] Closed Specialty Service Requested 07/16/2021 01/16/2023 1 1 Encounter Details Date Type Department Care Team (Latest Contact Info) Description 07/20/2021 10:41 AM EDT - 07/20/2021 11:59 PM EDT Hospital Encounter CT Scan at [facility] [place] [address] Albino Bartholomew MD [facility] DR [place] [address] Renal cell carcinoma, unspecified laterality [...] 10:30 AM EST Laboratory Appointment Lab at [facility] Hematology Oncology [address] [place] [address] 03/29/2024 12:[address] [place] [address] Albino Bartholomew MD [facility] DR [place] [address] 04/05/2024 10:00 AM EST Office Visit Hematology [place] [address] Albino Bartholomew MD [facility] DR [place] [address] documented as of this encounter Procedures Procedure [...] who have questions please contact the health neurocritical care physician that requested your imaging first. ? Electronically signed by: German Morel MD, [facility] ([phone]), at 07/20/2021 1:26 PM Narrative 07/20/2021 1:26 [...] patients who have questions please contactthe health neurocritical care physician that requested your imaging first. Electronically signed by: German Morel MD, [facility]([phone]), at 07/20/2021 1:26 PM Albino Bartholomew MD IM CT ORDERABLES [...] mLs documented in this encounter Care Teams Career Resource Technician Relationship Specialty Start Date End Date Lisbet Solitario MD [address] [place] [address] PCP - General Family Medicine 01/30/16 08/19/21 documented as of this encounter
--- OUTSIDE RECORDS SUMMARY | 2024-03-09 10:20 | XMS_ITS | Encounter Summary ---
Author Organization [facility] Address [facility] [place] [address] Care Team Providers Care Overhead Worker Name Role Phone Juan Dempsey MD Primary Care Provider Encounter Details Date Type Department Care Team (Latest Contact Info) Description 09/17/2021 12:08 PM EDT Hospital Encounter H[place]ology [place] [phone] Renal cell carcinoma, unspecified laterality; Medication management [...] [facility] Hematology Oncology [address] [place] [address] 03/29/2024 12:[address] [place] [address] Albino Bartholomew MD [facility] [address] [place] [address] 04/05/2024 10:00 AM EST Office Visit Hematology [place] [phone] Albino Bartholomew MD [facility] [address] [place] [address] documented as of this encounter Procedures Procedure Name Priority Date/Time Associated Diagnosis Comments HEMOGRAM STAT 09/17/2021 12:27 PM EDT Renal cell carcinoma, unspecified laterality Medication management DIFFERENTIAL, AUTOMATED STAT 09/17/2021 12:27 PM EDT Renal cell carcinoma, unspecified laterality Medication management HC CBC,PLT & AUTO DIFF STAT 2 12:27 PM EDT Renal cell carcinoma, unspecified laterality Medication management HC THYROID STIMULATING HORMONE, SERUM STAT 09/17/2021 12:27 PM EDT Renal cell carcinoma, unspecified laterality Medication management HC FREE THYROXINE (T4) STAT 2 12:27 PM EDT Renal cell carcinoma, unspecified laterality Medication management COMPREHENSIVE METABOLIC PANEL STAT 09/17/2021 12:27 PM EDT Renal cell carcinoma, unspecified laterality Medication management documented in this encounter Results * (ABNORMAL) Differential, Automated (09/17/2021 12:27 PM EDT) Neutrophil % 73.9 % [facility] Neutrophil Absolute 6.48(H) 1.70 - 6.10 x10(3)/mc L [facility] Lymph % 14.6 % [facility] Lymphocytes Abs 1.3 0.9 - 3.2 x10(3)/mc L [facility] Monocyte % 7.8 % [facility] Monocyte Abs 0.7 0.3 - 0.9 x10(3)/mc L [facility] Eos % 2.2 % [facility] Eosinophils Abs 0.2 0.0 - 0.4 x10(3)/[facility] Basophil % 1.0 % [facility] Baso Absolute 0.1 0.0 - 0.1 x10(3)/[facility] Immature Gran % 0.50 % [facility] Comment: Immature granulocytes(IG's)percentage and absolute count will include metamyelocytes, myelocytes, and promyelocytes. Blood smears from CBCs yielding IG's will be scanned manually for concordance. If this scan disagrees with the automated IG or if promyelocytes are noted, a manual differential will be performed. Immature Gran Absolute 0.04 0.00 - 0.04 x10(3)/[facility] Blood 09/17/2021 12:2 7 PM EDT 09/17/2021 12:32 PM EDT Narrative Resulting Agency Comment Spec In Lab Kelin Carlos [employer] HEMATOLOGY ORDERAB LES Performing Organization Address City/State/[facility] Co de Phone Number [facility] [place] [address] * (ABNORMAL) Hemogram (09/17/2021 12:27 PM EDT) White Blood Cell 8.8 4.0 - 9.5 x10(3)/[facility] Red Blood Cell 4.83 4.58 - 5.54 x10(6)/[facility] Hemoglobin 13.7 13.7 - 16.5 g/dL [facility] Hematocrit 41.6 40.5 - 48.5 % [facility] Mean Cell Volume 86.1 82.9 - 93.1 fL [facility] Mean Cell Hemoglobin 28.4 27.5 - 32.1 pg [facility] Mean Cell Hemoglobin Concentration 32.9 32.0 - 35.7 g/dL [facility] Platelet 161 145 - 357 x10(3)/mc L [facility] RDW Standard Deviation 46.8(H) 36.0 - 45.0 fL [facility] RDW coefficient of variation 14.8(H) 11.4 - 13.8 % [facility] Mean Platelet Volume 9.4 7.6 - 12.9 fL [facility] NRBC% auto 0.0 % [facility] NRBC Absolute 0.000 0.000 - 0.000 x10(3)/mc L [facility] Blood 09/17/2021 12:2 7 PM EDT 09/17/2021 12:32 PM EDT Narrative Resulting Agency Comment Spec In Lab Kelin Carlos APRN HEMATOLOGY ORDERAB LES Performing Organization Address [facility] de Phone Number [facility] [place] [address] * T4, free (09/17/2021 12:27 PM EDT) Free T4 1.22 0.93 - 1.70 ng/dL [facility] Comment: Reference Interval (ng/dL): Females: ??First Trimester: 0.97-1.68 ??Second Trimester: 0.77-1.51 ??Third Trimester: 0.77-1.49 Blood 09/17/2021 12:2 7 PM EDT 09/17/2021 12:32 PM EDT Narrative Resulting Agency Comment Spec In Lab Kelin Carlos [employer] CHEMISTRY ORDERABL ES Performing Organization Address [facility] Co de Phone Number [facility] [place] [address] * TSH (09/17/2021 12:27 PM EDT) Thyroid Stimulating Hormone 2.50 0.27 - 4.20 mcIU/mL [facility] Comment: Reference Interval (mcIU/mL): Females: ??First Trimester: 0.23-3.88 ??Second Trimester: 0.22-3.90 ??Third Trimester: 0.44-4.66 Blood 09/17/2021 12:2 7 PM EDT 09/17/2021 12:32 PM EDT Narrative Resulting Agency Comment Spec In Lab Kelin Carlos [employer] CHEMISTRY ORDERABL ES [facility] [place] [address] * (ABNORMAL) Comprehensive metabolic panel (non-fasting) (09/17/2021 12:27 PM EDT) Glucose 78 65 - 199 mg/dL [facility] Comment:Diabetes: >=200 mg/d L plus symptoms Blood Urea Nitrogen 24(H) 10 - 20 mg/dL [facility] Creatinine 1.38 0.80 - 1.50 mg/dL [facility] Sodium 138 135 - 145 mmol/L [facility] Potassium 4.2 3.5 - 5.0 mmol/L [facility] Comment: Please note: ??Patients with WBC >100,000 may have falsely elevated Potassium levels. ??For accurate Potassium quantification in these patients send serum separator tube (gold top) for subsequent determinations. ??Contact the Clinical Chemistry Laboratory if there are any questions. Chloride 104 98 - 107 mmol/L [facility] Carbon Dioxide 23 22 - 31 mmol/L [facility] Anion Gap 11 5 - 15 mmol/L [facility] Calcium 9.1 8.5 - 10.5 mg/dL [facility] Protein, Total 6.8 6.1 - 8.0 g/dL [facility] Albumin 4.1 3.2 - 5.2 g/dL [facility] Aspartate Aminotransferase 65(H) 0 - 39 unit/L [facility] Alanine Aminotransferase 166(H) 0 - 55 unit/L [facility] Alkaline Phosphatase 131(H) 40 - 130 unit/L [facility] Bilirubin, Total 0.5 0.2 - 1.3 mg/dL [facility] Est Glomerular Filtration Rate 53(L) >=60 mL/min/1. 73 m?? [facility] Comment: This patient? s [...] Agency Comment Spec In Lab Kelin Carlos [employer] CHEMISTRY ORDERABL ES [facility] [place] [address] documented in this encounter Visit Diagnoses Diagnosis Renal cell carcinoma, unspecified laterality Medication management Encounter for long-term (current) use of other medications documented in this encounter Care Teams Overhead Worker Relationship Specialty Start Date End Date Juan Dempsey MD [address] [place] [address] PCP - General Emergency Medicine 08/20/21 documented as of this encounter
--- OUTSIDE RECORDS SUMMARY | 2024-03-09 10:20 | XMS_ITS | Encounter Summary ---
Author Organization [facility] Address [facility] [place] [address] Care Team Providers Care Speech Therapist Name Role Phone Lisbet Solitario MD Primary Care Provider [phone] Encounter Details Date Type Department Care Team (Late st Contact Info) Description 07/17/2021 Telephone [place]ematology [place] [address] Mary Collazo, RN Social History [...] 07/17/2021 11:04 AM EDT Message received from secretary receptionist: Shantal is going to see his dentist [...] [facility] [place] Oncology [address] [place] [address] 03/29/2024 12:[address] [place] [place] [address] Albino Bartholomew MD [facility] [address] [place] [address] 04/05/2024 10:00 AM EST Office Visit Hematology [place] [address] Albino Bartholomew MD [facility] [address] [place] [address] documented as of this encounter Visit Diagnoses Not on filedocumented in this encounter Care Teams Speech Therapist Relationship Specialty Start Date End Date Lisbet Solitario MD [address] [place] [address] PCP - General Family Medicine 01/30/16 08/19/21 documented as of this encounter
--- OUTSIDE RECORDS SUMMARY | 2024-03-09 10:20 | XMS_ITS | Encounter Summary ---
Author Organization [facility] Address [facility] [address] Care Team Providers Care Delivery Assistant Name Role Phone uJan Dempsey MD Primary Care Provider [phone] Encounter Details Date Type Department Care Team (Late st Contact Info) Description 09/10/2021 Telephone Hematology [place] [address] Noemí Barba RN Social History [...] 09/10/2021 7:40 AM EDT Follow-up: F/U on [facility] 09/11. Following LFT's, Kidney function & K+. [...] [facility] Hematology Oncology [address] [place] [address] 03/29/2024 12:[address] [place] [address] Albino Bartholomew MD [facility] [place] [address] 04/05/2024 10:00 AM EST Office Visit Hematology [place] [address] Albino Bartholomew MD [facility] [place] [address] documented as of this encounter Visit Diagnoses Not on filedocumented in this encounter Care Teams Delivery Assistant Relationship Specialty Start Date End Date Juan Dempsey MD [address] [place] [address] PCP - General Emergency Medicine 08/20/21 documented as of this encounter
--- OUTSIDE RECORDS SUMMARY | 2024-03-09 10:20 | XMS_ITS | Encounter Summary ---
Author Organization [facility] Address [facility] [place] [address] Care Team Providers Care Air Breaker Operator Name Role Phone Lisbet Solitario MD Primary Care Provider [phone] Reason for Referral * Consultation (Routine) - Closed Specialty Diagnoses / Procedures Referred By Burak mcnair Referred To Contact Hematology and Oncology Diagnoses Renal cell carcinoma, unspecified laterality Jordan Hou MD [facility] [place] [address] [facility] Hem Onc [address] [place] [address] Referral ID Status Reason Start Date Expiration Date V isits Requested Visits Authorized [id number] Closed Consult, Test & Treat 07/07/2021 07/07/2022 1 1 Reason for Visit * Reason Comments Kidney Cancer Follow-up Encounter Details Date Type Department Care Team (Late st Contact Info) Description 07/07/2021 10:00 AM EST Office [place] [phone] Jordan Hou MD [facility] [place] [address] Renal cell carcinoma, unspecified laterality [...] 2.23) performed by Jordan Hou MD at [facility] MAIN OR ??? PRO REMV KIDNEY, RADICAL Left 06/23/2021 @NEPHRECTOMY, RADICAL W\REG LYMPHADENECTOMY &\OR VENA CAVA THROMBECTOMY (WRVU 23.81) performed by Jordan Hou MD at [facility] MAIN OR Social History Socioeconomic History ??? 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 EXAMINATION: Patient Vitals for [...] with his PCP for a referral to [facility] for colonoscopy, as well as further management [...] [facility] [address] [place] [address] 03/29/2024 12:[address] [place] [address] Albino Bartholomew MD [facility] DR [place] [address] 04/05/2024 10:00 AM EST Office Visit Hematology [place] [address] Albino Bartholomew MD [facility] DR [place] [address] Scheduled Referrals Name Type Priority Associated Diagnoses Order Schedule Referral to Genitourinary Oncology Outpatient Referral Routine Renal cell carcinoma, unspecified laterality Ordered: 07/07/2021 documented as of this encounter Visit Diagnoses Diagnosis Renal cell carcinoma, unspecified laterality documented in this encounter Care Teams Air Breaker Operator Relationship Specialty Start Date End Date Lisbet Solitario MD [address] [place] [address] PCP - General Family Medicine 01/30/16 08/19/21 documented as of this encounter
--- OUTSIDE RECORDS SUMMARY | 2024-03-09 10:20 | XMS_ITS | Encounter Summary ---
Author Organization [facility] [place] [address] Care Team Providers Care Shuttle Inspector Name Role Phone Lisbet Solitario MD Primary Care Provider [phone] Reason for Visit * Treatment/Therapy Plan Authorization (Routine) - Closed Specialty Diagnoses / Procedures Referred By Burak t Referred To Contact Hematology and Oncology Diagnoses Renal cell carcinoma, unspecified laterality Medication management Procedures [id number] ([id number]) Albino Bartholomew MD [facility] DR [place]ATOLOGY [place] [address] [facility] Hem Onc [address] [place] [address] Referral ID Status Reason Start Date Expiration Date Visits Re quested Visits Authorized [id number] Closed 07/30/2021 11/29/2021 99 99 Encounter Details Date Type Department Care Team (Latest Contact Info) Description 08/07/2021 9:01 AM EDT - 08/07/2021 11:59 PM EDT Hospital Encounter Hematology [place] [address] Renal cell carcinoma, unspecified laterality; [...] as of this encounter Progress Notes * Master Worthington RN - 08/07/2021 1:05 PM EDT [...] you have serious concerns about any symptom. [facility] # [phone] and ask for the oncologist or refuge worker on-call documented in this encounter Plan of Treatment Upcoming Encounters Date Type Department Care Team (Late st Contact Info) Description 03/29/2024 10:30 AM EST Laboratory Appointment Lab at [facility] Hematology Oncology [address] [place] [address] 03/29/2024 12:[address] [place] [phone] Albino Bartholomew MD [facility] DR HEMATOLOGY [place] [address] 04/05/2024 10:00 AM EST Office Visit Hematology [place] [phone] Albino Bartholomew MD [facility] DR [place]EMATOLOGY [place] [address] documented as of this encounter Results * T4, free (08/07/2021 9:11 AM EDT) [facility] T4 1.32 0.93 - 1.70 ng/dL [facility] Comment: Reference Interval (ng/dL): Females: ??First Trimester: 0.97-1.68 ??Second Trimester: 0.77-1.51 ??Third Trimester: 0.77-1.49 Blood 08/07/2021 9:11 AM EDT 08/07/2021 9:33 AM EDT Narrative Resulting Agency Comment Spec In Lab Albino Bartholomew MD CHEMISTRY ORDERABLES [facility] [place] [address] * (ABNORMAL) TSH (08/07/2021 9:11 AM EDT) Thyroid Stimulating Hormone 5.28(H) 0.27 - 4.20 mcIU/mL [facility] Comment: Reference Interval (mcIU/mL): Females: ??First Trimester: 0.23-3.88 ??Second Trimester: 0.22-3.90 ??Third Trimester: 0.44-4.66 Blood 08/07/2021 9:11 AM EDT 08/07/2021 9:33 AM EDT Narrative Resulting Agency Comment Spec In Lab Albino Bartholomew MD CHEMISTRY ORDERABLES [facility] [place] [address] * (ABNORMAL) Comprehensive metabolic panel (non-fasting) (08/07/2021 9:11 AM EDT) Glucose 124 65 - 199 mg/dL [facility] Comment:Diabetes: >=200 mg/d L plus symptoms Blood Urea Nitrogen 24(H) 10 - 20 mg/dL [facility] Creatinine 1.28 0.80 - 1.50 mg/dL [facility] Sodium 140 135 - 145 mmol/L [facility] Potassium 4.0 3.5 - 5.0 mmol/L [facility] Comment: Please note: ??Patients with WBC >100,000 may have falsely elevated Potassium levels. ??For accurate Potassium quantification in these patients send serum separator tube (gold top) for subsequent determinations. ??Contact the Clinical Chemistry Laboratory if there are any questions. Chloride 104 98 - 107 mmol/L [facility] Carbon Dioxide 26 22 - 31 mmol/L [facility] Anion Gap 10 5 - 15 mmol/L [facility] Calcium 9.7 8.5 - 10.5 mg/dL [facility] Protein, Total 7.8 6.1 - 8.0 g/dL [facility] Albumin 4.4 3.2 - 5.2 g/dL [facility] Aspartate Aminotransferase 23 0 - 39 unit/L [facility] Alanine Aminotransferase 49 0 - 55 unit/L [facility] Alkaline Phosphatase 153(H) 40 - 130 unit/L [facility] Bilirubin, Total 0.3 0.2 - 1.3 mg/dL [facility] Est Glomerular Filtration Rate 58(L) >=60 mL/min/1. 73 m?? [facility] Comment: This patient? s estimated [...] In Lab Albino Bartholomew MD CHEMISTRY ORDERABLES [facility] [place] [phone] documented in this encounter Visit Diagnoses Diagnosis [...] mL/hr documented in this encounter Care Teams Shuttle Inspector Relationship Specialty Start Date End Date Lisbet Solitario MD [address] [place] [address] PCP - General Family Medicine 01/30/16 08/19/21 documented as of this encounter
--- OUTSIDE RECORDS SUMMARY | 2024-03-09 10:21 | XMS_ITS | Encounter Summary ---
Author Organization [facility] Address [facility] [place] [address] Care Team Providers Care Track Production Engineer Name Role Phone Lisbet Solitario MD Primary Care Provider [phone] Reason for Visit * Reason Comments Skin Lesion recheck lesion on le ft ankle and left abdomen Encounter Details Date Type Department Care Team (Late st Contact Info) Description 04/14/2017 2:40 PM EST Office Visit Dermatology at [facility] [address] [place] [address] Norm Kelley MD [facility] [place] [address] Seborrheic keratosis, inflamed; Telangiectasia Social History Tobacco [...] history of skin disease 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 RTC: In January 2018 year for full [...] by Norm Kelley MD Resident in Dermatology [facility] Patient seen and evaluated with staff driver's license examiner: Richard Torres MD Section of Dermatology [facility] * Richard Torres MD - 04/14/2017 2:40 [...] [facility] Hematology Oncology [address] [place] [address] 03/29/2024 12:[address] [place] [place] [address] Albino Bartholomew MD [facility] DR HEMATOLOGY [place] [address] 04/05/2024 10:00 AM EST Office Visit [place]ematology [place] [address] Albino Bartholomew MD [facility] DR HEMATOLOGY [place] [address] documented as of this encounter Visit Diagnoses Diagnosis Seborrheic keratosis, inflamed Inflamed seborrheic keratosis Telangiectasia Other and unspecified capillary diseases documented in this encounter Care Teams Track Production Engineer Relationship Specialty Start Date End Date Lisbet Solitario MD [address] [place] [address] PCP - General Family Medicine 01/30/16 08/19/21 documented as of this encounter
--- OUTSIDE RECORDS SUMMARY | 2024-03-09 10:21 | XMS_ITS | Encounter Summary ---
Author Organization [facility] Address [facility] [place] [address] Care Team Providers Care [employer] Dist[employer] Name Role Phone Lisbet Solitario MD Primary Care Provider Reason for Visit * Reason Comments Skin Check Encounter Details Date Type Department Care Team (Late st Contact Info) Description 05/15/2019 1:15 PM EST Office Visit Dermatology at [facility] [address] [place] [address] Oli Winter MD [address] [facility] [place] [address] Plantar wart; Multiple benign nevi; Seborrheic keratoses; [...] note were not included. Dermatology Dermatology at [facility] FOLLOW-UP Chief Complaint: Skin exam History of [...] Oli Winter MD FAAD Section of Dermatology [facility] documented in this encounter Plan of Treatment Upcoming Encounters Date Type Department Care Team (Late st Contact Info) Description 03/29/2024 10:30 AM EST Laboratory Appointment Lab at [facility] Hematology Oncology [address] [place] [address] 03/29/2024 12:[address] [place] [place] [address] Albino Bartholomew MD [facility] [place] [address] 04/05/2024 10:00 AM EST Office Visit [place]ology [place] [address] Albino Bartholomew MD [facility] [address] [place] [address] documented as of this encounter Visit Diagnoses Diagnosis Plantar wart Multiple benign nevi Benign neoplasm of skin, site unspecified Seborrheic keratoses Rodríguez angioma Nevus, non-neoplastic Family history of melanoma Family history of other specified malignant neoplasm documented in this encounter Care Teams [employer] Relationship Specialty Start Date End Date Lisbet Solitario MD [address] [place] [address] PCP - General Family Medicine 01/30/16 08/19/21 documented as of this encounter
--- OUTSIDE RECORDS SUMMARY | 2024-03-09 10:21 | XMS_ITS | Encounter Summary ---
Author Organization [facility] Address [facility] [place] [address] Care Team Providers Care Eyeglass Inspector Name Role Phone Lisbet Solitario MD Primary Care Provider [phone] Reason for Visit * Auth/Cert Specialty Diagnoses / Procedures Referred By Burak mcnair Referred To Contact Diagnoses Renal mass RENAL MASS Procedures PRO REMV KIDNEY, RADICAL PRO CYSTOURETHROSCOPY @NEPHRECTOMY, RADICAL W\REG LYMPHADENECTOMY &\OR VENA CAVA THROMBECTOMY (WRVU 23.81) CYSTO, CYSTOURETHROSCOPY, DIAGNOSTIC (WRVU 2.23) Referral ID Status Reason Start Date Expiration Date Visits Re quested Visits Authorized [id number] 1 1 Encounter Details Date Type Department Care Team (Late st Contact Info) Description 06/23/2021 7:30 AM EST - 06/23/2021 12:15 PM EST [place] [address] Miles Hou MD [facility] [place] [address] @NEPHRECTOMY, RADICAL W\REG LYMPHADENECTOMY &\OR VENA CAVA [...] that part of your care. Urology Clinic: [phone] PCP: Lisbet Solitario MD, . Please follow-up [...] whole grains, and beans. You can buy ciyr-ujv-hyyoxko fiber supplements such as Metamucil, Benefiber, Citracel, and others. ??? Use fwci-hpx-aufqogf products. Try them in this order: 1. [...] on the status of your appointment on [facility]. Please call [phone] (clinic number for appointments) to confirm date [...] managed by the Urologic Surgery Team at [facility]. If you have any questions or concerns, please feel free to contact us. Provider Contact Information: Urology Clinic: [phone] [facility] (after [...] whole grains, and beans. You can buy mkab-voj-xxdkoed fiber supplements such as Metamucil, Benefiber, Citracel, and others. Use riox-mar-lofypek products. Try them in this order: Stool [...] on the status of your appointment on [facility]. Please call (clinic number for appointments) [...] acting as a scribe for Dr. Cline. [facility] Nurse: Becca Capone RN Resident:: Kieran [...] floor status, will discuss discharge planning with day care attendant. Code status: Full code Brando Boss MD [...] floor status, will discuss discharge planning with day care attendant. Code status: Full code Brando Boss MD [id number] * Zachery Cline MD - 06/25/2021 11:31 [...] any questions/changes in his medical status. Pager: [phone] Lulu Khan OTR/L 06/25/2021 Occupational Therapy Rehabilitation [...] 2.23) performed by Miles Hou MD at [facility] MAIN OR ??? PRO REMV KIDNEY, RADICAL Left 06/23/2021 @NEPHRECTOMY, RADICAL W\REG LYMPHADENECTOMY &\OR VENA CAVA THROMBECTOMY (WRVU 23.81) performed by Miles Hou MD at [facility] MAIN OR There are no active non-hospital problems to display for this patient. 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 His niece is a PT at [employer], he reports she's already got exercises for [...] outlinedin this evaluation. Time IN / OUT: 3090-5485 Total Minutes, Physical Therapy: 15 Dayanara Kern, PT Pager: [phone] Physical Therapy Inpatient Rehabilitation Department * Betty [...] floor status, will discuss discharge planning with day care attendant. Code status: Full code Brando Boss MD [...] vein reconstruction. Consent confirmed. LEFT side marked. [facility] Ancef T&S Dawn Tello MD Associated attestation [...] anticipated Patient is insured through: Primary Insurance: [employer] MGD MEDICARE Payor: [employer] [place] MEDICARE / Plan: [facility] / Product Type: *No Product type* / Secondary Insurance: N/A Prescription Coverage: YES Preferred Pharmacy: [id number] [address] This plan was formulated with input from patient and team. All are in agreement with plan. Initial IMM given: ??06/23/21 5:50 AM OCM RS to provide DC IMM R. (Mina) DUANE Stallworth RN/CM - Cellphone: [phone] Pager: [phone] Covering Service RN/CM * Plan of Care [...] Admission order reviewed. Primary [facility] Secondary Insurance on file: n/a Primary care provider on file: Lisbet Solitario MD [phone] Pharmacy: [id number] - [address] [address] Advance Care Planning: Attempt Cardiopulmonary Resuscitation - Inpatient <no information> -Advanced Directive: Other (Surrogacy: Talisha Tenorio (Spouse)) Current Functional Ability: Assistive Equipment and Assistive Person Functional Status Prior to Admission: Independent Home Environment: Others in the home: spouse. Current Living Arrangements: home/apartment/condo. Accessibility Concerns:none noted. [facility] D[facility]: [facility] [address] [facility] [address] Social & Family Supports: Extended Emergency Contact Information Primary Emergency Contact: Talisha Tenorio Address: [address] [place] [address] [place] Mobile Relation: Spouse Secondary Emergency Contact: [place] [address] [facility] Mobile Relation: Child Current Care Provided by: [...] via car when medically ready. Registered Nurse Paver Installer / [employer] will continue to follow patient???s progress and remain available if situation changes for coordination of care, psychosocial support and/or discharge planning. Office of Care Management Kayla Stallworth RN (Jonas) RN/CM - Cellphone: [phone] Pager: [phone] Covering Service RN/CM * Op Note - Dawn Tello MD - 06/23/2021 1:07 PM EST Operative Note Patient Name: Raymundo Tenorio : [id number] MR#: [id number] Case Date: 06/23/2021 Surgeon: Surgeon(s) and Role: [...] the bladder. The scope was withdrawn. 14 Welsh Cabezas catheter was placed using 10 cc [...] with 0 Vicryl interrupted sutures in a zvaufp-od-nwwop manner. The skin was then closed with [...] Operative Note Patient Name: Raymundo Tenorio : [id number] MR#: [id number] Case Date: 06/23/2021 Surgeon: Surgeon(s) and Role: [...] [facility] [place] [place] [address] [place] [address] 03/29/2024 12:[address] [place] [address] Albino Bartholomew MD [facility] [place] [address] 04/05/2024 10:00 AM EST Office Visit Hematology [place] [address] Albino Bartholomew MD [facility] [place] [address] documented as of this encounter Procedures Procedure [...] RBC STAT 06/23/2021 8:25 AM EST Cystourethroscopy ([id number]) Yes 2021 7:47 AM EST RENAL MASS Remv Kidney, Radical ([id number]) Yes 06/23/2021 7:47 AM EST RENAL MASS [...] * Differential, Automated (06/27/2021 1:34 AM EST) Pathologist [facility] Neutrophil % 67.9 % [facility] Neutrophil Absolute 3.91 1.70 - 6.10 x10(3)/[facility] Lymph % 19.8 % [facility] Lymphocytes Abs 1.1 0.9 - 3.2 x10(3)/[facility] Monocyte % 6.1 % [facility] Monocyte Abs 0.4 0.3 - 0.9 x10(3)/[facility] Eos % 4.5 % [facility] Eosinophils Abs 0.3 0.0 - 0.4 x10(3)/[facility] Basophil % 1.2 % [facility] Baso Absolute 0.1 0.0 - 0.1 x10(3)/[facility] Immature Gran % 0.50 % [facility] Comment: Immature granulocytes(IG's)percentage and absolute count will include metamyelocytes, myelocytes, and promyelocytes. Blood smears from CBCs yielding IG's will be scanned manually for concordance. If this scan disagrees with the automated IG or if promyelocytes are noted, a manual differential will be performed. Immature Gran Absolute 0.03 0.00 - 0.04 x10(3)/[facility] Blood 06/27/2021 1:34 AM EST 06/27/2021 1:54 AM EST Narrative Resulting Agency Comment Spec In Lab Brando Boss MD HEMATOLOGY ORDERA BLES [facility] [place] [address] * (ABNORMAL) Hemogram (06/27/2021 1:34 AM EST) [facility] White Blood Cell 5.8 4.0 - 9.5 x10(3)/ L [facility] Red Blood Cell 3.49(L) 4.58 - 5.54 x10(6)/ L [facility] Hemoglobin 9.6(L) 13.7 - 16.5 g/dL [facility] Hematocrit 29.7(L) 40.5 - 48.5 % [facility] Mean Cell Volume 85.1 82.9 - 93.1 fL [facility] Mean Cell Hemoglobin 27.5 27.5 - 32.1 pg [facility] Mean Cell Hemoglobin Concentration 32.3 32.0 - 35.7 g/dL [facility] Platelet 199 145 - 357 x10(3)/[facility] RDW Standard Deviation 44.2 36.0 - 45.0 [facility] RDW coefficient of variation 14.5(H) 11.4 - 13.8 % [facility] Mean Platelet Volume 9.9 7.6 - 12.9 [facility] NRBC% auto 0.0 % [facility] NRBC Absolute 0.000 0.000 - 0.000 x10(3)/[facility] Blood 06/27/2021 1:34 AM EST 06/27/2021 1:54 AM EST Narrative Resulting Agency Comment Spec In Lab Brando Boss MD HEMATOLOGY ORDERA BLES [facility] [place] [address] * Basic Metabolic Panel (non-fasting) (06/27/2021 1:34 AM EST) Glucose 134 65 - 199 mg/dL [facility] Comment:Diabetes: >=200 mg/d L plus symptoms Blood Urea Nitrogen 19 10 - 20 mg/dL [facility] Creatinine 1.22 0.80 - 1.50 mg/dL [facility] Sodium 140 135 - 145 mmol/L [facility] Potassium 3.7 3.5 - 5.0 mmol/L [facility] Comment: Please note: ??Patients with WBC >100,000 may have falsely elevated Potassium levels. ??For accurate Potassium quantification in these patients send serum separator tube (gold top) for subsequent determinations. ??Contact the Clinical Chemistry Laboratory if there are any questions. Chloride 106 98 - 107 mmol/L [facility] Carbon Dioxide 27 22 - 31 mmol/L [facility] Anion Gap 7 5 - 15 mmol/L [facility] Calcium 8.5 8.5 - 10.5 mg/dL [facility] Est Glomerular Filtration Rate 61 >=60 mL/min/1. 73 m?? [facility] Comment: This patient? s [...] Lab Miles Hou MD CHEMISTRY ORDERABL ES [facility] [place] [address] * COVID-19 PCR (06/26/2021 5:46 AM EST) SARS-CoV-2 RNA Not Detected Not Detected [facility] Comment: This result should be [...] diagnosis of COVID-19 is performed using the [employer] m SARS-CoV-2 Assay as authorized by the FDA Emergency Use Authorization (EUA). This EUA assay is intended for In-vitro Diagnostic (IVD) use with respiratory specimens such as nasopharyngeal swabs collected from individuals during the acute phase of infection. This assay is performed based on the instructions for use provided by [employer] and additional guidance provided by CDC and FDA. Testing is performed in the Clinical Genomics and Advanced Technology Laboratory within the Department of Pathology and Laboratory Medicine at [facility], certified under the Clinical Laboratory Improvement Amendments [...] fact sheets at the following FDA website: https://www.fda.gov/medical-devices/ckjgytcrraq-tnvtknx-9173-afgzk-60-eftotswld- use-a ajczogwetmpcv-xynnhuc-kvpeomh/zorjt-ienrvvhyxjv-wqsp SARS-CoV-2 RNA Source ROLL TESTER Swab [facility] Nasopharyngeal Swab 06/26/19 5:46 AM EST 06/26/2021 8:43 AM EST Comment:Symptoms->Surveillan ce Narrative Resulting Agency Comment Spec In Lab Miles Hou MD MOLECULAR ORDERABL ES [facility] [place] [address] * (ABNORMAL) Differential, Automated (06/26/2021 1:31 AM EST) Neutrophil % 71.3 % [facility] Neutrophil Absolute 4.35 1.70 - 6.10 x10(3)/mc L [facility] Lymph % 18.3 % [facility] Lymphocytes Abs 1.1 0.9 - 3.2 x10(3)/mc L [facility] Monocyte % 5.9 % [facility] Monocyte Abs 0.4 0.3 - 0.9 x10(3)/mc L [facility] Eos % 2.6 % [facility] Eosinophils Abs 0.2 0.0 - 0.4 x10(3)/mc L [facility] Basophil % 0.8 % [facility] Baso Absolute 0.0 0.0 - 0.1 x10(3)/mc L [facility] Immature Gran % 1.10 % [facility] Comment: Immature granulocytes(IG's)percentage and absolute count will include metamyelocytes, myelocytes, and promyelocytes. Blood smears from CBCs yielding IG's will be scanned manually for concordance. If this scan disagrees with the automated IG or if promyelocytes are noted, a manual differential will be performed. Immature Gran Absolute 0.07(H) 0.00 - 0.04 x10(3)/mc L [facility] Blood 06/26/2021 1:31 AM EST 06/26/2021 1:42 AM EST Narrative Resulting Agency Comment Spec In Lab Brando Boss MD HEMATOLOGY ORDERA BLES [facility] [place] [address] * (ABNORMAL) Hemogram (06/26/2021 1:31 AM EST) White Blood Cell 6.1 4.0 - 9.5 x10(3)/ L [facility] Red Blood Cell 3.07(L) 4.58 - 5.54 x10(6)/[facility] Hemoglobin 8.6(L) 13.7 - 16.5 g/dL [facility] Hematocrit 26.5(L) 40.5 - 48.5 % [facility] Mean Cell Volume 86.3 82.9 - 93.1 fL [facility] Mean Cell Hemoglobin 28.0 27.5 - 32.1 pg [facility] Mean Cell Hemoglobin Concentration 32.5 32.0 - 35.7 g/dL [facility] Platelet 166 145 - 357 x10(3)/ L [facility] RDW Standard Deviation 46.5(H) 36.0 - 45.0 [facility] RDW coefficient of variation 14.6(H) 11.4 - 13.8 % [facility] Mean Platelet Volume 9.8 7.6 - 12.9 [facility] NRBC% auto 0.0 % [facility] NRBC Absolute 0.000 0.000 - 0.000 x10(3)/ L [facility] Blood 06/26/2021 1:31 AM EST 06/26/2021 1:42 AM EST Narrative Resulting Agency Comment Spec In Lab Brando Boss MD HEMATOLOGY ORDERA BRIANNAS [facility] [place] [address] * (ABNORMAL) Basic Metabolic Panel (non-fasting) (06/26/2021 1:31 AM EST) Glucose 102 65 - 199 mg/dL [facility] Comment:Diabetes: >=200 mg/d L plus symptoms Blood Urea Nitrogen 18 10 - 20 mg/dL [facility] Creatinine 1.11 0.80 - 1.50 mg/dL [facility] Sodium 138 135 - 145 mmol/L [facility] Potassium 4.0 3.5 - 5.0 mmol/L [facility] Comment: Please note: ??Patients with WBC >100,000 may have falsely elevated Potassium levels. ??For accurate Potassium quantification in these patients send serum separator tube (gold top) for subsequent determinations. ??Contact the Clinical Chemistry Laboratory if there are any questions. Chloride 108(H) 98 - 107 mmol/L [facility] Carbon Dioxide 23 22 - 31 mmol/L [facility] Anion Gap 7 5 - 15 mmol/L [facility] Calcium 8.2(L) 8.5 - 10.5 mg/dL [facility] Est Glomerular Filtration Rate 69 >=60 mL/min/1. 73 m?? [facility] Comment: This patient? s [...] Lab Miles Hou MD CHEMISTRY ORDERABL ES [facility] [place] [address] * Differential, Automated (06/25/2021 1:41 AM EST) Neutrophil % 76.0 % [facility] Neutrophil Absolute 5.35 1.70 - 6.10 x10(3)/[facility] Lymph % 16.2 % [facility] Lymphocytes Abs 1.1 0.9 - 3.2 x10(3)/[facility] Monocyte % 5.5 % [facility] Monocyte Abs 0.4 0.3 - 0.9 x10(3)/[facility] Eos % 1.3 % [facility] Eosinophils Abs 0.1 0.0 - 0.4 x10(3)/[facility] Basophil % 0.6 % [facility] Baso Absolute 0.0 0.0 - 0.1 x10(3)/[facility] Immature Gran % 0.40 % [facility] Comment: Immature granulocytes(IG's)percentage and absolute count will include metamyelocytes, myelocytes, and promyelocytes. Blood smears from CBCs yielding IG's will be scanned manually for concordance. If this scan disagrees with the automated IG or if promyelocytes are noted, a manual differential will be performed. Immature Gran Absolute 0.03 0.00 - 0.04 x10(3)/[facility] Blood 06/25/2021 1:41 AM EST 06/25/2021 2:12 AM EST Narrative Resulting Agency Comment Spec In Lab Brando Boss MD HEMATOLOGY ORDERA BLES [facility] [place] [address] * (ABNORMAL) Hemogram (06/25/2021 1:41 AM EST) White Blood Cell 7.0 4.0 - 9.5 x10(3)/mc L [facility] Red Blood Cell 3.22(L) 4.58 - 5.54 x10(6)/mc L [facility] Hemoglobin 8.9(L) 13.7 - 16.5 g/dL [facility] Hematocrit 27.4(L) 40.5 - 48.5 % [facility] Mean Cell Volume 85.1 82.9 - 93.1 fL [facility] Mean Cell Hemoglobin 27.6 27.5 - 32.1 pg [facility] Mean Cell Hemoglobin Concentration 32.5 32.0 - 35.7 g/dL [facility] Platelet 154 145 - 357 x10(3)/mc L [facility] RDW Standard Deviation 45.1(H) 36.0 - 45.0 [facility] RDW coefficient of variation 14.6(H) 11.4 - 13.8 % [facility] Mean Platelet Volume 10.2 7.6 - 12.9 [facility] NRBC% auto 0.0 % [facility] NRBC Absolute 0.000 0.000 - 0.000 x10(3)/mc L [facility] Blood 06/25/2021 1:41 AM EST 06/25/2021 2:12 AM EST Narrative Resulting Agency Comment Spec In Lab Brando Boss MD HEMATOLOGY ORDERA BLES [facility] [place] [address] * (ABNORMAL) Basic Metabolic Panel (non-fasting) (06/25/2021 1:41 AM EST) Glucose 92 65 - 199 mg/dL [facility] Comment:Diabetes: >=200 mg/d L plus symptoms Blood Urea Nitrogen 21(H) 10 - 20 mg/dL [facility] Creatinine 1.32 0.80 - 1.50 mg/dL [facility] Sodium 137 135 - 145 mmol/L [facility] Potassium 4.5 3.5 - 5.0 mmol/L [facility] Comment: Please note: ??Patients with WBC >100,000 may have falsely elevated Potassium levels. ??For accurate Potassium quantification in these patients send serum separator tube (gold top) for subsequent determinations. ??Contact the Clinical Chemistry Laboratory if there are any questions. Chloride 107 98 - 107 mmol/L [facility] Carbon Dioxide 23 22 - 31 mmol/L [facility] Anion Gap 7 5 - 15 mmol/L [facility] Calcium 8.4(L) 8.5 - 10.5 mg/dL [facility] Est Glomerular Filtration Rate 56(L) >=60 mL/min/1. 73 m?? [facility] Comment: This patient? s [...] MD CHEMISTRY ORDERABL ES Performing Organization Address [facility]/ZIP Co de Phone Number [facility] [place] [address] * (ABNORMAL) Differential, Automated (06/24/2021 1:12 AM EST) Neutrophil % 86.5 % [facility] Neutrophil Absolute 9.85(H) 1.70 - 6.10 x10(3)/mc L [facility] Lymph % 7.1 % [facility] Lymphocytes Abs 0.8(L) 0.9 - 3.2 x10(3)/mc L [facility] Monocyte % 5.7 % [facility] Monocyte Abs 0.6 0.3 - 0.9 x10(3)/mc L [facility] Eos % 0.0 % [facility] Eosinophils Abs 0.0 0.0 - 0.4 x10(3)/mc L [facility] Basophil % 0.3 % [facility] Baso Absolute 0.0 0.0 - 0.1 x10(3)/mc L [facility] Immature Gran % 0.40 % [facility] Comment: Immature granulocytes(IG's)percentage and absolute count will include metamyelocytes, myelocytes, and promyelocytes. Blood smears from CBCs yielding IG's will be scanned manually for concordance. If this scan disagrees with the automated IG or if promyelocytes are noted, a manual differential will be performed. Immature Gran Absolute 0.04 0.00 - 0.04 x10(3)/mc L [facility] Blood 06/24/2021 1:12 AM EST 06/24/2021 1:28 AM EST Narrative Resulting Agency Comment Spec In Lab Brando Boss MD HEMATOLOGY ORDERA BLES Performing Organization Address City/[facility]/ZIP Co de Phone Number [facility] [place] [address] * (ABNORMAL) Hemogram (06/24/2021 1:12 AM EST) White Blood Cell 11.4(H) 4.0 - 9.5 x10(3)/mc L [facility] Red Blood Cell 3.51(L) 4.58 - 5.54 x10(6)/mc L [facility] Hemoglobin 9.7(L) 13.7 - 16.5 g/dL [facility] Comment: This result has been called to BERNARDINO PAYAN by Noreen Streeter on 06 24 2021 at 0219, and has been read back. Hematocrit 30.4(L) 40.5 - 48.5 % [facility] Mean Cell Volume 86.6 82.9 - 93.1 fL [facility] Mean Cell Hemoglobin 27.6 27.5 - 32.1 pg [facility] Mean Cell Hemoglobin Concentration 31.9(L) 32.0 - 35.7 g/dL [facility] Platelet 186 145 - 357 x10(3)/mc L [facility] RDW Standard Deviation 46.0(H) 36.0 - 45.0 fL [facility] RDW coefficient of variation 14.6(H) 11.4 - 13.8 % [facility] Mean Platelet Volume 9.9 7.6 - 12.9 fL [facility] NRBC% auto 0.0 % [facility] NRBC Absolute 0.000 0.000 - 0.000 x10(3)/ L [facility] Blood 06/24/2021 1:12 AM EST 06/24/2021 1:28 AM EST Narrative Resulting Agency Comment Spec In Lab Brando Boss MD HEMATOLOGY ORDERA BLES [facility] [place] [address] * (ABNORMAL) Basic Metabolic Panel (non-fasting) (06/24/2021 1:12 AM EST) Glucose 129 65 - 199 mg/dL [facility] Comment:Diabetes: >=200 mg/d L plus symptoms Blood Urea Nitrogen 22(H) 10 - 20 mg/dL [facility] Creatinine 1.31 0.80 - 1.50 mg/dL [facility] Sodium 136 135 - 145 mmol/L [facility] Potassium 5.3(H) 3.5 - 5.0 mmol/L [facility] Comment: Please note: ??Patients with WBC >100,000 may have falsely elevated Potassium levels. ??For accurate Potassium quantification in these patients send serum separator tube (gold top) for subsequent determinations. ??Contact the Clinical Chemistry Laboratory if there are any questions. Chloride 105 98 - 107 mmol/L [facility] LABORATORY Carbon Dioxide 23 22 - 31 mmol/L [facility] Anion Gap 8 5 - 15 mmol/L [facility] Calcium 8.6 8.5 - 10.5 mg/dL [facility] Est Glomerular Filtration Rate 56(L) >=60 mL/min/1. 73 m?? [facility] Comment: This patient? s [...] Lab Miles Hou MD CHEMISTRY ORDERABL ES [facility] [place] [address] * (ABNORMAL) Differential, Automated (06/23/2021 12:45 PM EST) Neutrophil % 91.4 % [facility] Neutrophil Absolute 7.70(H) 1.70 - 6.10 x10(3)/[facility] LABORATORY Lymph % 5.6 % [facility] Lymphocytes Abs 0.5(L) 0.9 - 3.2 x10(3)/[facility] LABORATORY Monocyte % 2.1 % [facility] Monocyte Abs 0.2(L) 0.3 - 0.9 x10(3)/[facility] LABORATORY Eos % 0.2 % [facility] Eosinophils Abs 0.0 0.0 - 0.4 x10(3)/[facility] LABORATORY Basophil % 0.5 % [facility] Baso Absolute 0.0 0.0 - 0.1 x10(3)/[facility] LABORATORY Immature Gran % 0.20 % [facility] Comment: Immature granulocytes(IG's)percentage and absolute count will include metamyelocytes, myelocytes, and promyelocytes. Blood smears from CBCs yielding IG's will be scanned manually for concordance. If this scan disagrees with the automated IG or if promyelocytes are noted, a manual differential will be performed. Immature Gran Absolute 0.02 0.00 - 0.04 x10(3)/[facility] LABORATORY Blood 06/23/2021 12:4 5 PM EST 06/23/2021 1:11 PM EST Narrative Resulting Agency Comment Spec In Lab Dawn Tello MD HEMATOLOGY ORDERABLE S [facility] [place] [address] * (ABNORMAL) Hemogram (06/23/2021 12:45 PM EST) Pathologist [facility] White Blood Cell 8.4 4.0 - 9.5 x10(3)/mc L [facility] Red Blood Cell 4.55(L) 4.58 - 5.54 x10(6)/mc L [facility] Hemoglobin 12.6(L) 13.7 - 16.5 g/dL [facility] Hematocrit 38.6(L) 40.5 - 48.5 % [facility] Mean Cell Volume 84.8 82.9 - 93.1 fL [facility] Mean Cell Hemoglobin 27.7 27.5 - 32.1 pg [facility] Mean Cell Hemoglobin Concentration 32.6 32.0 - 35.7 g/dL [facility] Platelet 157 145 - 357 x10(3)/ L [facility] RDW Standard Deviation 45.2(H) 36.0 - 45.0 [facility] LABORATORY RDW coefficient of variation 14.7(H) 11.4 - 13.8 % [facility] Mean Platelet Volume 9.6 7.6 - 12.9 [facility]ATORY NRBC% auto 0.0 % [facility] NRBC Absolute 0.000 0.000 - 0.000 x10(3)/ L [facility] Blood 06/23/2021 12:4 5 PM EST 06/23/2021 1:11 PM EST Narrative Resulting Agency Comment Spec In Lab Dawn Tello MD HEMATOLOGY ORDERABLE S [facility] [place] [address] * (ABNORMAL) Basic Metabolic Panel (non-fasting) (06/23/2021 12:45 PM EST) Glucose 169 65 - 199 mg/dL [facility] Comment:Diabetes: >=200 mg/d L plus symptoms Blood Urea Nitrogen 20 10 - 20 mg/dL [facility] Creatinine 1.21 0.80 - 1.50 mg/dL [facility] Sodium 134(L) 135 - 145 mmol/L [facility] Potassium 4.3 3.5 - 5.0 mmol/L [facility] Comment: Please note: ??Patients with WBC >100,000 may have falsely elevated Potassium levels. ??For accurate Potassium quantification in these patients send serum separator tube (gold top) for subsequent determinations. ??Contact the Clinical Chemistry Laboratory if there are any questions. Chloride 105 98 - 107 mmol/L [facility] Carbon Dioxide 20(L) 22 - 31 mmol/L [facility] Anion Gap 9 5 - 15 mmol/L [facility] Calcium 9.1 8.5 - 10.5 mg/dL [facility] Est Glomerular Filtration Rate 62 >=60 mL/min/1. 73 m?? [facility] Comment: This patient? s [...] Lab Miles Hou MD CHEMISTRY ORDERABL ES [facility] [place] [address] * Surgical Pathology Report (06/23/2021 11:37 AM EST) Final Diagnosis [id number] ? Location: 2WST; 0210; A The signing [...] [facility] Dept. of Pathology, [place], [place] ?Surgical Pathology DIAGNOSIS A - Left Kidney, biopsy (1) Clear cell renal cell carcinoma, pT3a N1, see synoptic report. Electronically signed by: ?Renea Acuna MD Verified: ??07/02/2021 10:38 ??Pathologist Performed at: ??-[facility] Dept. of Pathology, [place], [place] SYNOPTIC Specimen Parts: ??A Specimen ? [...] 2020 Release ADDITIONAL STUDIES Whole slide scan: [id number] [id number] [id number] A6-1 [id number] A8-1 [id number] SPECIMEN(S) SUBMITTED A - Left Kidney, biopsy (1) CLINICAL INFORMATION Renal mass SPECIMEN PROCESSING A - Labeled/Fixative: Left kidney, fresh. Quantity/Size/Weight : Single, 21 x 18 x 10 cm, 2453 g. SPECIMEN DESCRIPTION Resection Specimen: Intact, left, nephrectomy. LESION Size: 17 x 16 x 9.5 cm. Location: Obliterates the mid and lower pole Color: [place]-yellow to red-brown and hemorrhagic. Consistency: soft. Contour: [...] The perinephric soft tissues inked black. Sections/Processing: Grain Cleaner sections in 20 cassettes as follows: ?A1: ??Ureter margin ?A2: ??Vascular margins ?A3: ??Longitudinal section of tumor within renal vein ?A4-A5: ??Tumor within renal pelvis ?A6-A7: ??Tumor in relation to hilar fat margin ?A8-A10: ??Tumor in relation to perinephric fat margin ?A11-A12: ??Tumor in relation to Gerota's fascia ?A13: ??Tumor within renal sinus fat ?A14: ??Tumor with ??adjacent parenchyma ?A15-A16: ??Grain Cleaner areas of tumor heterogeneity ?A17: ??Uninvolved upper pole ?A18-A19: ??Single bisected perihilar lymph node in each cassette ?A20: ??Single intact candidate perihilar lymph node ??ajw 07/02/2021 11:14 AM EST [facility] SPECIMEN FROM KIDNEY / Unknown 06/23/2021 11:37 AM EST 06/23/2021 11:37 AM EST Miles Hou MD PATHOLOGY/CYTOLOGY ORDERABLES Performing Organization Address [facility]/ZIP Co de Phone Number [facility] [place] [address] * Specimen to Pathology (06/23/2021 11:37 AM EST) AP Specimen 06/23/2021 11:3 7 AM EST 06/23/2021 11:37 AM EST Narrative [facility] - 06/23/2021 11:37 AM EST Specimen requisition ordered. ??Separate Pathology report to follow Miles Hou MD PATHOLOGY/CYTOLOGY ORDERABLES Performing Organization Address City/[facility] Co de Phone Number [facility] [place] [address] * (ABNORMAL) BLOOD GAS 2 ARTERIAL (06/23/2021 8:42 AM EST) pH, Arterial 7.42 7.35 - 7.45 [facility] PCO2, Arterial 36 35 - 45 mmHg [facility] PO2, Arterial 245(H) 85 - 104 mmHg [facility] Bicarbonate, Arterial 23.1 20.0 - 26.0 mmol/L [facility] Base Excess, Arterial -1.3 -3.0 - 3.0 mmol/L [facility] Hgb Blood Gas 11.1(L) 13.7 - 16.5 g/dL [facility] Oxyhemoglobin, Arterial 99.0(H) 94.0 - 97.0 % [facility] Carboxyhemoglob in, Arterial 0.1 % [facility] Comment: Nonsmokers: 0.5-1.5% COHB Smokers: Variable, but usually less than 10% Toxic: 20-30% COHB Lethal: Greater than 60% COHB Methemoglobin, Arterial 0.3 <=1.5 % [facility] Na Whole Blood 136 135 - 145 mmol/L [facility] K Whole Blood 4.0 3.5 - 5.0 mmol/L [facility] Comment: Please note: Patients with WBC >100,000 may have falsely elevated Potassium levels. Contact the Clinical Chemistry Laboratory if there are any questions. ICa Whole Blood 1.29 1.15 - 1.33 mmol/L [facility] Comment: Note: ??Total bilirubin higher than 20 mg/dL may lead to falsely low ionized calcium. CL Whole Blood 106 98 - 107 mmol/L [facility] Gluc Whole Bld 103 65 - 199 mg/dL [facility] Comment:Diabetes: >=200 mg/d L plus symptoms. Lactate WB 1.1 0.5 - 2.2 mmol/L [facility] FIO2 Art 60 % [facility] PF Ratio Art 408 [facility] Blood 06/23/2021 8:42 AM EST 06/23/2021 8:42 AM EST Miles Hou MD POINT OF CARE TEST ORDERABLES [facility] [place] [address] * (ABNORMAL) Hemogram (06/23/2021 8:30 AM EST) White Blood Cell 5.8 4.0 - 9.5 x10(3)/mc L [facility] Red Blood Cell 3.90(L) 4.58 - 5.54 x10(6)/mc L [facility] Hemoglobin 10.7(L) 13.7 - 16.5 g/dL [facility] Hematocrit 33.3(L) 40.5 - 48.5 % [facility] Comment: This result has been called to EMERALD WATTS by POITR HEBERT on 06 23 2021 at 0900, and has been read back. Mean Cell Volume 85.4 82.9 - 93.1 fL [facility] Mean Cell Hemoglobin 27.4(L) 27.5 - 32.1 pg [facility] Mean Cell Hemoglobin Concentration 32.1 32.0 - 35.7 g/dL [facility] Platelet 190 145 - 357 x10(3)/mc L [facility] RDW Standard Deviation 45.9(H) 36.0 - 45.0 fL [facility] RDW coefficient of variation 14.7(H) 11.4 - 13.8 % [facility] Mean Platelet Volume 9.9 7.6 - 12.9 fL [facility] NRBC% auto 0.0 % [facility] NRBC Absolute 0.000 0.000 - 0.000 x10(3)/mc L [facility] Blood 06/23/2021 8:30 AM EST 06/23/2021 8:53 AM EST Narrative Resulting Agency Comment Spec In Lab Erica Alves MD HEMATOLOGY ORDERABLE S [facility] [place] [address] * Prepare RBC (06/23/2021 8:25 AM EST) Dispensed? Yes [facility] Blood 06/23/2021 8:25 AM EST 06/23/2021 8:25 AM EST Miles F Sverrisson MD BLOOD BANK PRODUCT ORDERABLES [facility] [place] [address] * XR Fluoro No Rad <1Hr - OR Use (06/23/2021 7:42 AM EST) Narrative Dicom, Auditing User - 06/23/2021 7:57 AM EST This exam is auto-finalizing. No interpretation was done. Miles Hou MD IMG FLUORO ORDERAB LES * Type and Screen Validity (06/23/2021 7:15 AM EST) T&S only valid at [facility] LABORATORY Comment:This Type and Screen result is only valid at the [facility] Blood 06/23/2021 7:15 AM EST 06/23/2021 7:32 AM EST Narrative Resulting Agency Comment Spec In Lab Miles Hou MD BLOOD BANK LAB ORD ERABLES [facility] [place] [address] * Antibody screen (06/23/2021 7:15 AM EST) Ab Screen Interp Negative [facility] Expires at [id number] on: 06/26/2021 [facility] Blood 06/23/2021 7:15 AM EST 06/23/2021 7:32 AM EST Narrative Resulting Agency Comment Spec In Lab Miles Hou MD BLOOD BANK LAB ORD ERABLES [facility] [place] [address] * ABO/Rh Typing (06/23/2021 7:15 AM EST) ABORH Type A Pos [facility] Blood 06/23/2021 7:15 AM EST 06/23/2021 7:32 AM EST Narrative Resulting Agency Comment Spec In Lab Miles Hou MD BLOOD BANK LAB ORD ERABLES Performing Organization Address [facility] Co de Phone Number [facility] [place] [address] * Red Tube Hold (06/23/2021 7:10 AM EST) Red Hold Sample in lab. [facility] Blood No Charge / Unknown 06/23/2021 7:10 AM EST 06/23/2021 8:06 AM EST Miles Hou MD CHEMISTRY ORDERABL ES Performing Organization Address [facility] Co de Phone Number [facility] [place] [address] * Differential, Automated (06/23/2021 7:10 AM EST) Neutrophil % 70.9 % [facility] Neutrophil Absolute 5.93 1.70 - 6.10 x10(3)/[facility] LABORATORY Lymph % 17.1 % [facility] Lymphocytes Abs 1.4 0.9 - 3.2 x10(3)/[facility] LABORATORY Monocyte % 7.8 % [facility] Monocyte Abs 0.6 0.3 - 0.9 x10(3)/[facility] LABORATORY Eos % 2.8 % [facility] Eosinophils Abs 0.2 0.0 - 0.4 x10(3)/[facility] LABORATORY Basophil % 1.2 % [facility] Baso Absolute 0.1 0.0 - 0.1 x10(3)/[facility] LABORATORY Immature Gran % 0.20 % [facility] Comment: Immature granulocytes(IG's)percentage and absolute count will include metamyelocytes, myelocytes, and promyelocytes. Blood smears from CBCs yielding IG's will be scanned manually for concordance. If this scan disagrees with the automated IG or if promyelocytes are noted, a manual differential will be performed. Immature Gran Absolute 0.02 0.00 - 0.04 x10(3)/mcL [facility] Blood 06/23/2021 7:10 AM EST 06/23/2021 8:04 AM EST Narrative Resulting Agency Comment Spec In Lab Miles Hou MD HEMATOLOGY ORDERAB LES [facility] [place] [address] * (ABNORMAL) Hemogram (06/23/2021 7:10 AM EST) White Blood Cell 8.4 4.0 - 9.5 x10(3)/mc L [facility] Red Blood Cell 2.42(L) 4.58 - 5.54 x10(6)/[facility] Hemoglobin 6.7(L) 13.7 - 16.5 g/dL [facility] Hematocrit 20.9(L) 40.5 - 48.5 % [facility] Comment: This result has been called to EMERALD WATTS by Milton Godinez on 06 23 2021 at 0821, and has been read back. Mean Cell Volume 86.4 82.9 - 93.1 fL [facility] Mean Cell Hemoglobin 27.7 27.5 - 32.1 pg [facility] Mean Cell Hemoglobin Concentration 32.1 32.0 - 35.7 g/dL [facility] Platelet 279 145 - 357 x10(3)/mc L [facility] RDW Standard Deviation 47.1(H) 36.0 - 45.0 [facility] RDW coefficient of variation 14.8(H) 11.4 - 13.8 % [facility] Mean Platelet Volume 10.1 7.6 - 12.9 [facility] NRBC% auto 0.0 % [facility] NRBC Absolute 0.000 0.000 - 0.000 x10(3)/mc L [facility] Blood 06/23/2021 7:10 AM EST 06/23/2021 8:04 AM EST Narrative Resulting Agency Comment Spec In Lab Miles Hou MD HEMATOLOGY ORDERAB LES Performing Organization Address City/State/[facility] Co de Phone Number [facility] [place] [address] * (ABNORMAL) Comprehensive metabolic panel (non-fasting) (06/23/2021 7:10 AM EST) Glucose 93 65 - 199 mg/dL [facility] Comment:Diabetes: >=200 mg/d L plus symptoms Blood Urea Nitrogen 20 10 - 20 mg/dL [facility] Creatinine 1.28 0.80 - 1.50 mg/dL [facility] Sodium 137 135 - 145 mmol/L [facility] Potassium 4.2 3.5 - 5.0 mmol/L [facility] Comment: Please note: ??Patients with WBC >100,000 may have falsely elevated Potassium levels. ??For accurate Potassium quantification in these patients send serum separator tube (gold top) for subsequent determinations. ??Contact the Clinical Chemistry Laboratory if there are any questions. Chloride 106 98 - 107 mmol/L [facility] Carbon Dioxide 21(L) 22 - 31 mmol/L [facility] Anion Gap 10 5 - 15 mmol/L [facility] Calcium 10.0 8.5 - 10.5 mg/dL [facility] Protein, Total 7.3 6.1 - 8.0 g/dL [facility] Albumin 3.7 3.2 - 5.2 g/dL [facility] Aspartate Aminotransferase 20 0 - 39 unit/L [facility] Alanine Aminotransferase 30 0 - 55 unit/L [facility] Alkaline Phosphatase 129 40 - 130 unit/L [facility] Bilirubin, Total 0.6 0.2 - 1.3 mg/dL [facility] Est Glomerular Filtration Rate 58(L) >=60 mL/min/1. 73 m?? [facility] Comment: This patient? s [...] Lab Miles Hou MD CHEMISTRY ORDERABL ES [facility] [place] [address] * ABORH Recheck Status (06/23/2021 7:05 AM EST) ABOR[facility] Recheck Order Order Placed [facility] ABORH Type Recheck Complete [facility] Blood 06/23/2021 7:05 AM EST 06/23/2021 7:09 AM EST Narrative Resulting Agency Comment Spec In Lab Dawn Tello MD BLOOD BANK LAB ORDER RADHA [facility] [place] [address] * Antibody screen (06/23/2021 7:05 AM EST) Ab Screen Interp Not Performed [facility] Expires at [id number] on: 06/26/2021 [facility] Blood 06/23/2021 7:05 AM EST 06/23/2021 7:09 AM EST Narrative Resulting Agency Comment Spec In Lab Dawn Tello MD BLOOD BANK LAB ORDER RADHA Performing Organization Address [facility] Co de Phone Number [facility] [place] [address] * EKG 12 Lead (06/23/2021 7:04 AM EST) Ventricular rate 76 BPM MUSE SYSTEM Atrial Rate 76 BPM MUSE SYSTEM P-R Interval 228 ms MUSE SYSTEM QRS Duration 90 ms MUSE SYSTEM Q-T Interval 384 ms MUSE SYSTEM QTC Calculated (Bezet) 432 ms MUSE SYSTEM Calculated P [place] 31 degrees MUSE SYSTEM Calculated R [place] 33 degrees MUSE SYSTEM Calculated T [place] 32 degrees MUSE SYSTEM INTERPRETATION Sinus rhythm with 1st degree A-V block Left atrial enlargement Septal infarct (cited on or before 23-JUN-2021) Abnormal ECG When compared with ECG of 23-JUN-2021 07:03, (unconfirmed) No significant change was found Confirmed by fellow MD Orellana Thara ([id number]) on 06/23/2021 2:47:30 PM Confirmed by MD Jt, Mario ([id number]) on 06/23/2021 4:10:38 PM MUSE SYSTEM 06/23/2021 7:04 AM EST 06/23/2021 4:10 PM EST Unknown ECG ORDERABLES Performing Organization Address [facility]/ZIP Co de Phone Number MUSE SYSTEM * EKG 12 Lead (06/23/2021 7:03 AM EST) Ventricular rate 77 BPM MUSE SYSTEM Atrial Rate 77 BPM MUSE SYSTEM P-R Interval 228 ms MUSE SYSTEM QRS Duration 92 ms MUSE SYSTEM Q-T Interval 384 ms MUSE SYSTEM QTC Calculated (Bezet) 434 ms MUSE SYSTEM Calculated P [place] 24 degrees MUSE SYSTEM Calculated R [place] 33 degrees MUSE SYSTEM Calculated T [place] 30 degrees MUSE SYSTEM INTERPRETATION Sinus rhythm with 1st degree A-V block Septal infarct , age undetermined Abnormal ECG No previous ECGs available Confirmed by fellow MD Orellana Thara ([id number]) on 06/23/2021 1:55:29 PM Confirmed by MD [...] Corazon Priest RN)1104 (Given - Provider: Lorena Toledo RN)1728 (Given - Provider: Lorena Toledo, DUANE) 0040 (Given - Provider: Corazon Priest, DUANE)0649 (Given - Provider: Corazon Priest RN)1128 (Given [...] Unit), Routine 0832 (Given - Provider: Yaima Levy, RN)2134 (Given - Provider: Corazon Priest, DUANE) 0900 (Given - Provider: Lorena Toledo, DUANE)2050 (Given - Provider: Corazon Priest, DUANE) 1001 (Given - Provider: Anahy Norris RN) [...] Morin RN)1347 (New Bag - Provider: Lorena Toledo, DUANE)2323 (New Bag - Provider: Corazon Priest RN) [...] Oral, EVERY 4 HOURS PRN, Starting on 06/23/21 at 1234, Until Wed06/27/21 at 1406, Pain, [...] Unit) documented in this encounter Care Teams Eyeglass Inspector Relationship Specialty Start Date End Date Lisbet Solitario MD [address] [place] [address] PCP - General Family Medicine 01/30/16 08/19/21 documented as of this encounter
--- OUTSIDE RECORDS SUMMARY | 2024-03-09 10:21 | XMS_ITS | Encounter Summary ---
Author Organization [facility] Address [facility] [place] [address] Care Team Providers Care Manager Corporate Communications Name Role Phone Lisbet Solitario MD Primary Care Provider [phone] Reason for Visit * Auth/Cert Specialty Diagnoses / Procedures Referred By Burak t Referred To Contact Diagnoses Renal mass RENAL MASS Procedures PRO REMV KIDNEY, RADICAL PRO CYSTOURETHROSCOPY @NEPHRECTOMY, RADICAL W\REG LYMPHADENECTOMY &\OR VENA CAVA THROMBECTOMY (WRVU 23.81) CYSTO, CYSTOURETHROSCOPY, DIAGNOSTIC (WRVU 2.23) Referral ID Status Reason Start Date Expiration Date Visits Re quested Visits Authorized [id number] 1 1 Encounter Details Date Type Department Care Team (Late st Contact Info) Description 06/20/2021 1:00 PM EST [place] [address] COVID-19 ruled out Social History Tobacco Use [...] [facility] Hematology Oncology [address] [place] [phone] 03/29/2024 12:[address] [place] [phone] Albino Bartholomew MD [facility] [place] [address] 04/05/2024 10:00 AM EST Office Visit Hematology [place] [phone] Albino Bartholomew MD [facility] HEMATOLOGY AND ONCOLOGY [place], [place] [phone] documented as of this encounter Procedures Procedure Name Priority Date/Time Associated Diagnosis Comments COVID-19 PCR Routine 06/20/2021 2:40 PM EST COVID-19 ruled out documented in this encounter Results * COVID-19 PCR (06/20/2021 2:40 PM EST) SARS-CoV-2 RNA Not Detected Not Detected [facility] Comment: This result should be [...] diagnosis of COVID-19 is performed using the [employer] Al[employer] m SARS-CoV-2 Assay as authorized by the FDA Emergency Use Authorization (EUA). This EUA assay is intended for In-vitro Diagnostic (IVD) use with respiratory specimens such as nasopharyngeal swabs collected from individuals during the acute phase of infection. This assay is performed based on the instructions for use provided by [employer] and additional guidance provided by CDC and FDA. Testing is performed in the [facility] within the Department of Pathology and Laboratory Medicine at [facility], certified under the Clinical Laboratory [...] fact sheets at the following FDA website: https://www.fda.gov/medical-devices/bsmxctlifdp-iarnfea-9930-ldfni-84-hptkpqktl- use-a fxbnnzaeuqnds-bkrzrvm-zuzsgbp/xtwwy-thoiamwwutk-zcad SARS-CoV-2 RNA Source BACK TENDER INSULATION BOARD Swab [facility] Nasopharyngeal Swab 06/20/19 2:40 PM EST 06/20/2021 2:40 PM EST Comment:Symptoms->Asymptomat ic Narrative Resulting Agency Comment Spec In Lab Jordan Hou [place] [address] documented in this encounter Visit Diagnoses Diagnosis COVID-19 ruled out documented in this encounter Care Teams Manager Corporate Communications Relationship Specialty Start Date End Date Lisbet Solitario MD [address] [place] [address] PCP - General Family Medicine 01/30/16 08/19/21 documented as of this encounter
--- OUTSIDE RECORDS SUMMARY | 2024-03-09 10:21 | XMS_ITS | Encounter Summary ---
Author [facility] [place] [address] Care Team Providers Care Embedded Systems Software Developer Name Role Phone Lisbet Solitario MD Primary Care Provider [phone] Encounter Details Date Type Department Care Team (Late st Contact Info) Description 06/24/2021 11:59 PM EST Anesthesia Event 2 [place] [address] Gaby Capone, RN Anesthesia Record [...] [facility] Hemat[facility] Oncology [address] [place] [address] 03/29/2024 12:[address] [place] [address] Albino Bartholomew MD [facility] [place] [address] 04/05/2024 10:00 AM EST Office Visit Hematology [place] [address] Albino Bartholomew MD [facility] DR [place] [address] documented as of this encounter Visit Diagnoses Not on filedocumented in this encounter Care Teams Embedded Systems Software Developer Relationship Specialty Start Date End Date Lisbet Solitario MD [address] [place] [address] PCP - General Family Medicine 01/30/16 08/19/21 documented as of this encounter
--- OUTSIDE RECORDS SUMMARY | 2024-03-09 10:21 | XMS_ITS | Encounter Summary ---
Author Organization Formerly [facility] Address [facility] [place] [address] Care Team Providers Care Hide Dyer Name Role Phone Lisbet Solitario MD Primary Care Provider [phone] Encounter Details Date Type Department Care Team (Late st Contact Info) Description 05/21/2021 Telephone Urology at [facility] [place] [id number] Jordan Hou MD [facility] [place] [address] Social History Tobacco Use Types Packs/Day Years [...] 10:30 AM EST Laboratory Appointment Lab at [facility] [place] Oncology [address] [place] [address] 03/29/2024 12:[address] [place] [address] Albino Bartholomew MD [facility] DR [place] [address] 04/05/2024 10:00 AM EST Office Visit Hematology [place] [address] Albino Bartholomew MD [facility] DR [place] [address] documented as of this encounter Visit Diagnoses Not on filedocumented in this encounter Care Teams Hide Dyer Relationship Specialty Start Date End Date Lisbet Solitario MD [address] [place] [address] PCP - General Family Medicine 01/30/16 08/19/21 documented as of this encounter
--- OUTSIDE RECORDS SUMMARY | 2024-03-09 10:21 | XMS_ITS | Encounter Summary ---
Author Organization Formerly [facility] Address [facility] [place] [address] Care Team Providers Care Casino Floorperson Name Role Phone Lisbet Solitario MD Primary Care Provider [phone] Encounter Details Date Type Department Care Team (Late st Contact Info) Description 05/29/2021 8:30 PM EST Ancillary Procedure Radiology Library at [facility] [place] [address] Jordan Hou MD [facility] [place] [address] Social History Tobacco Use Types Packs/Day Years [...] 10:30 AM EST Laboratory Appointment [place] [facility] [place] [address] [place] [address] 03/29/2024 12:[address] [place] [phone] Albino Bartholomew MD [facility] HEMATOLOGY [place] [address] 04/05/2024 10:00 AM EST Office Visit Hematology [place] [address] Albino Bartholomew MD [facility] DR HEMATOLOGY [place] [address] documented as of this encounter Procedures Procedure Name Priority Date/Time Associated Diagnosis Comments FILM LIBRARY STORAGE ONLY CT CHEST Routine 05/29/2021 8:29 PM EST documented in this encounter Results * Film Library- Storage Only CT Chest (05/29/2021 8:29 PM EST) Narrative [facility] - 05/29/2021 8:29 PM EST This exam is auto-finalizing. It's purpose is for storage only. Jordan Hou MD IMG FILM LIBRARY O RDERABLES [place], [place] documented in this encounter Visit Diagnoses Not on filedocumented in this encounter Care Teams Casino Floorperson Relationship Specialty Start Date End Date Lisbet Solitario MD [address] [place] [address] PCP - General Family Medicine 01/30/16 08/19/21 documented as of this encounter
--- OUTSIDE RECORDS SUMMARY | 2024-03-09 10:21 | XMS_ITS | Encounter Summary ---
Author Organization [facility] Address [facility] [place] [address] Care Team Providers Care Cut Out Stitcher Name Role Phone Lisbet Solitario MD Primary Care Provider [phone] Reason for Referral * Diagnostic Test (Routine) - Closed Specialty Diagnoses / Procedures Referred By Burak mcnair Referred To Contact Diagnoses Renal mass Procedures CT Chest wo Contrast (Generic) Jordan Hou MD [facility] [place] [address] Referral ID Status Reason Start Date Expiration Date V isits Requested Visits Authorized [id number] Closed Specialty Service Requested 05/26/2021 11/23/2022 1 1 Reason for Visit * Reason Comments Renal Mass Encounter Details Date Type Department Care Team (Late st Contact Info) Description 05/26/2021 8:20 AM EST Office [place] [address] Jordan Hou MD [facility] [place] [address] Renal mass Social History Tobacco Use Types [...] 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 TECHNOLOGY ADVISOR: Denies loss of consciousness, denies balance difficulty, [...] [facility] [place] [place] Hematology Oncology [address] [place] [address] 03/29/2024 12:[address] [place] [address] Albino Bartholomew MD [facility] [address] [place] [address] 04/05/2024 10:00 AM EST Office Visit Hematology and Oncology at [facility] [place] [address] Albino Bartholomew MD [facility] [address] [place] [address] documented as of this encounter Results * [...] who have questions please contact the health respiratory care specialist that requested your imaging first. [...] Finding Jordan Hou MD IMG CT ORDERABLES * (ABNORMAL) Comprehensive metabolic panel (non-fasting) (06/23/2021 7:10 AM EST) Glucose 93 65 - 199 mg/dL [facility] Comment:Diabetes: >=200 mg/d L plus symptoms Blood Urea Nitrogen 20 10 - 20 mg/dL [facility] Creatinine 1.28 0.80 - 1.50 mg/dL [facility] Sodium 137 135 - 145 mmol/L [facility] Potassium 4.2 3.5 - 5.0 mmol/L [facility] Comment: Please note: ??Patients with WBC >100,000 may have falsely elevated Potassium levels. ??For accurate Potassium quantification in these patients send serum separator tube (gold top) for subsequent determinations. ??Contact the Clinical Chemistry Laboratory if there are any questions. Chloride 106 98 - 107 mmol/L [facility] Carbon Dioxide 21(L) 22 - 31 mmol/L [facility] Anion Gap 10 5 - 15 mmol/L [facility] Calcium 10.0 8.5 - 10.5 mg/dL [facility] Protein, Total 7.3 6.1 - 8.0 g/dL [facility] Albumin 3.7 3.2 - 5.2 g/dL [facility] Aspartate Aminotransferase 20 0 - 39 unit/L [facility] Alanine Aminotransferase 30 0 - 55 unit/L [facility] Alkaline Phosphatase 129 40 - 130 unit/L [facility] Bilirubin, Total 0.6 0.2 - 1.3 mg/dL [facility] Est Glomerular Filtration Rate 58(L) >=60 mL/min/1. 73 m?? [facility] Comment: This patient? s estimated [...] ORDERABL ES [facility] [place] [address] * EKG 12 Lead (06/23/2021 7:03 AM EST) Ventricular rate 77 BPM MUSE SYSTEM Atrial Rate 77 BPM MUSE SYSTEM P-R Interval 228 ms MUSE SYSTEM QRS Duration 92 ms MUSE SYSTEM Q-T Interval 384 ms MUSE SYSTEM QTC Calculated (Bezet) 434 ms MUSE SYSTEM Calculated P [place] 24 degrees MUSE SYSTEM Calculated R [place] 33 degrees MUSE SYSTEM Calculated T [place] 30 degrees MUSE SYSTEM INTERPRETATION Sinus rhythm with 1st degree A-V block Septal infarct , age undetermined Abnormal ECG No previous ECGs available Confirmed by fellow MD Reyna, Luisito ([id number]) on 06/23/2021 1:55:29 PM Confirmed by MD Waters Jon ([id number]) on 06/23/2021 2:05:10 PM MUSE SYSTEM 06/23/2021 7:03 AM EST 06/23/2021 2:05 PM EST Jordan Hou MD ECG ORDERABLES MUSE SYSTEM documented in this encounter Visit Diagnoses Diagnosis Renal mass Unspecified disorder of kidney and ureter Renal mass Unspecified disorder of kidney and ureter documented in this encounter Care Teams Cut Out Stitcher Relationship Specialty Start Date End Date Lisbet Solitario MD [address] [place] [address] PCP - General Family Medicine 01/30/16 08/19/21 documented as of this encounter
--- OUTSIDE RECORDS SUMMARY | 2024-03-09 10:21 | XMS_ITS | Encounter Summary ---
Author Organization Formerly [facility] Address [facility] [place] [address] Care Team Providers Care Surveyor Chain Helper Name Role Phone Lisbet Solitario MD Primary Care Provider [phone] Reason for Visit * Auth/Cert Specialty Diagnoses / Procedures Referred By Burak mcnair Referred To Contact Diagnoses Renal mass RENAL MASS Procedures PRO REMV KIDNEY, RADICAL PRO CYSTOURETHROSCOPY @NEPHRECTOMY, RADICAL W\REG LYMPHADENECTOMY &\OR VENA CAVA THROMBECTOMY (WRVU 23.81) CYSTO, CYSTOURETHROSCOPY, DIAGNOSTIC (WRVU 2.23) Referral ID Status Reason Start Date Expiration Date Visits Re quested Visits Authorized [id number] 1 1 Encounter Details Date Type Department Care Team (Latest Contact Info) Description 06/23/2021 5:49 AM [facility] - 06/27/2021 12:00 PM [facility] Hospital Encounter [address] [place] [address] Miles Hou MD [facility] [place] [address] Renal mass Discharge Disposition: Home Social History [...] Hospital Course: Raymundo Tenorio was admitted to [facility] on 06/23/2021 through the Same Day Surgery [...] that part of your care. Urology Clinic: [phone] PCP: Lisbet Solitario MD, . Please follow-up [...] whole grains, and beans. You can buy ujbf-qav-rqwsjss fiber supplements such as Metamucil, Benefiber, Citracel, and others. ??? Use kkvo-ddx-iuqnfpt products. Try them in this order: 1. [...] on the status of your appointment on [facility]. Please call (clinic number for appointments) to [...] managed by the Urologic Surgery Team at [facility]. If you have any questions or concerns, please feel free to contact us. Provider Contact Information: Urology Clinic: [phone] [facility] (after business hours): CC: Lisbet Solitario MD [...] whole grains, and beans. You can buy vujt-ayw-kfbgklm fiber supplements such as Metamucil, Benefiber, Citracel, and others. Use fdqx-kjh-wrsosvv products. Try them in this order: Stool [...] on the status of your appointment on [facility]. Please call [phone] (clinic number for appointments) to confirm date [...] acting as a scribe for Dr. Cline. [facility] Nurse: Becca Capone RN Resident:: [...] floor status, will discuss discharge planning with clinical care leader. Code status: Full code Brando Boss MD [...] floor status, will discuss discharge planning with clinical care leader. Code status: Full code Brando Boss MD [...] any questions/changes in his medical status. Pager: [phone] Lulu Khan OTR/L 06/25/2021 Occupational Therapy Rehabilitation [...] 2.23) performed by Miles Hou MD at [facility] MAIN OR ??? PRO REMV KIDNEY, RADICAL Left 06/23/2021 @NEPHRECTOMY, RADICAL W\REG LYMPHADENECTOMY &\OR VENA CAVA THROMBECTOMY (WRVU 23.81) performed by Miles Hou MD at [facility] MAIN OR There are no active non-hospital problems to display for this patient. 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 His niece is a PT at [employer], he reports she's already got exercises for [...] outlinedin this evaluation. Time IN / OUT: 2983-8552 Total Minutes, Physical Therapy: 15 Dayanara Kern, PT Pager: [phone] Physical Therapy Inpatient Rehabilitation Department * Betty [...] floor status, will discuss discharge planning with clinical care leader. Code status: Full code Brando Boss MD [...] of call urban, bed.chair alarm, and 2 [place] falls prevention program. Will check MD orders [...] vein reconstruction. Consent confirmed. LEFT side marked. [facility] Ancef T&S Dawn Tello MD [...] anticipated Patient is insured through: Primary Insurance: [employer] [place] MEDICARE Payor: [employer] [place] M[place] MEDICARE / Plan: [facility] / Product Type: *No Product type* / Secondary Insurance: N/A Prescription Coverage: YES Preferred Pharmacy: [facility] [place], [place] - [address] [place] [address] [address] [facility] [address] This plan was formulated with input from patient and team. All are in agreement with plan. Initial IMM given: ??06/23/21 5:50 AM OCM RS to provide DC IMM R. (Mina) DUANE Stallworth RN/CM - Cellphone: [phone] Pager: [phone] Covering Service RN/CM * Plan of Care [...] Admission order reviewed. Primary Insurance on file: [employer] [facility] MEDICARE Secondary Insurance on file: n/a Primary care provider on file: Lisbet Solitario MD [phone] Pharmacy: [id number] [address] Advance Care Planning: Attempt Cardiopulmonary Resuscitation - Inpatient <no information> -Advanced Directive: Other (Surrogacy: Talisha Tenorio (Spouse)) Current Functional Ability: Assistive Equipment and Assistive Person Functional Status Prior to Admission: Independent Home Environment: Others in the home: spouse. Current Living Arrangements: home/apartment/condo. Accessibility Concerns:none noted. Current DME: none [address] [facility] [address] Social & Family Supports: Extended Emergency Contact Information Primary Emergency Contact: Talisha Tenorio Address: [address] [place] [address] [place] Relation: Spouse Secondary Emergency Contact: German Tenorio, MARIO [address] [facility] Mobile Relation: Child Current Care Provided by: [...] via car when medically ready. Registered Nurse Venue Coordinator / Rubber Belt Splicer will continue to follow patient???s progress and remain available if situation changes for coordination of care, psychosocial support and/or discharge planning. Office of Care Management Kayla Stallworth RN (Jonas) RN/CM - Cellphone: [phone] Pager: [phone] Covering Service RN/CM * Op Note - Dawn Tello MD - 06/23/2021 1:07 PM EST Operative Note Patient Name: Raymundo Tenorio : [id number] MR#: [id number] Case Date: 06/23/2021 Surgeon: Surgeon(s) and Role: [...] the bladder. The scope was withdrawn. 14 [place] Cabezas catheter was placed using 10 cc [...] with 0 Vicryl interrupted sutures in a llqyih-pq-qzxaw manner. The skin was then closed with [...] Operative Note Patient Name: Raymundo Tenorio : [id number] MR#: [id number] Case Date: 06/23/2021 Surgeon: Surgeon(s) and Role: [...] [facility] Hematology Oncology [address] [place] [address] 03/29/2024 12:[address] [place] [address] Albino Bartholomew MD [facility] DR [place]ATOLOGY [place] [address] 04/05/2024 10:00 AM EST Office Visit Hematology [place] [address] Albino Bartholomew MD [facility] DR HEMATOLOGY [place] [address] documented as of this encounter Procedures Procedure [...] RBC STAT 06/23/2021 8:25 AM EST Cystourethroscopy ([id number]) Yes 2021 7:47 AM EST RENAL MASS Remv Kidney, Radical ([id number]) Yes 06/23/2021 7:47 AM EST RENAL MASS [...] Differential, Automated (06/27/2021 1:34 AM EST) Pathologist [facility] Neutrophil % 67.9 % [facility] Neutrophil Absolute 3.91 1.70 - 6.10 x10(3)/[facility] Lymph % 19.8 % [facility] Lymphocytes Abs 1.1 0.9 - 3.2 x10(3)/[facility] Monocyte % 6.1 % [facility] Monocyte Abs 0.4 0.3 - 0.9 x10(3)/[facility] Eos % 4.5 % [facility] Eosinophils Abs 0.3 0.0 - 0.4 x10(3)/[facility] Basophil % 1.2 % [facility] Baso Absolute 0.1 0.0 - 0.1 x10(3)/[facility] Immature Gran % 0.50 % [facility] Comment: Immature granulocytes(IG's)percentage and absolute count will include metamyelocytes, myelocytes, and promyelocytes. Blood smears from CBCs yielding IG's will be scanned manually for concordance. If this scan disagrees with the automated IG or if promyelocytes are noted, a manual differential will be performed. Immature Gran Absolute 0.03 0.00 - 0.04 x10(3)/[facility] Blood 06/27/2021 1:34 AM EST 06/27/2021 1:54 AM EST Narrative Resulting Agency Comment Spec In Lab Brando Boss MD HEMATOLOGY ORDERA BLES [facility] [place] [address] * (ABNORMAL) Hemogram (06/27/2021 1:34 AM EST) Pathologist [facility] White Blood Cell 5.8 4.0 - 9.5 x10(3)/mc L [facility] Red Blood Cell 3.49(L) 4.58 - 5.54 x10(6)/ L [facility] Hemoglobin 9.6(L) 13.7 - 16.5 g/dL [facility] Hematocrit 29.7(L) 40.5 - 48.5 % [facility] Mean Cell Volume 85.1 82.9 - 93.1 fL [facility] Mean Cell Hemoglobin 27.5 27.5 - 32.1 pg [facility] Mean Cell Hemoglobin Concentration 32.3 32.0 - 35.7 g/dL [facility] Platelet 199 145 - 357 x10(3)/[facility] RDW Standard Deviation 44.2 36.0 - 45.0 [facility] RDW coefficient of variation 14.5(H) 11.4 - 13.8 % [facility] Mean Platelet Volume 9.9 7.6 - 12.9 [facility] NRBC% auto 0.0 % [facility] NRBC Absolute 0.000 0.000 - 0.000 x10(3)/[facility] Blood 06/27/2021 1:34 AM EST 06/27/2021 1:54 AM EST Narrative Resulting Agency Comment Spec In Lab Brando Boss MD HEMATOLOGY ORDERA BLES [facility] [place] [address] * Basic Metabolic Panel (non-fasting) (06/27/2021 1:34 AM EST) Glucose 134 65 - 199 mg/dL [facility] Comment:Diabetes: >=200 mg/d L plus symptoms Blood Urea Nitrogen 19 10 - 20 mg/dL [facility] Creatinine 1.22 0.80 - 1.50 mg/dL [facility] Sodium 140 135 - 145 mmol/L [facility] Potassium 3.7 3.5 - 5.0 mmol/L [facility] Comment: Please note: ??Patients with WBC >100,000 may have falsely elevated Potassium levels. ??For accurate Potassium quantification in these patients send serum separator tube (gold top) for subsequent determinations. ??Contact the Clinical Chemistry Laboratory if there are any questions. Chloride 106 98 - 107 mmol/L [facility] Carbon Dioxide 27 22 - 31 mmol/L [facility] Anion Gap 7 5 - 15 mmol/L [facility] Calcium 8.5 8.5 - 10.5 mg/dL [facility] Est Glomerular Filtration Rate 61 >=60 mL/min/1. 73 m?? [facility] [...] Lab Miles Hou MD CHEMISTRY ORDERABL ES [facility] [place] [address] * COVID-19 PCR (06/26/2021 5:46 AM EST) SARS-CoV-2 RNA Not Detected Not Detected [facility] Comment: This result should be [...] diagnosis of COVID-19 is performed using the [employer] m SARS-CoV-2 Assay as authorized by the FDA Emergency Use Authorization (EUA). This EUA assay is intended for In-vitro Diagnostic (IVD) use with respiratory specimens such as nasopharyngeal swabs collected from individuals during the acute phase of infection. This assay is performed based on the instructions for use provided by [employer] and additional guidance provided by CDC and FDA. Testing is performed in the Clinical Genomics and Advanced Technology Laboratory within the Department of Pathology and Laboratory Medicine at [facility], certified under the Clinical Laboratory [...] fact sheets at the following FDA website: https://www.fda.gov/medical-devices/ifovogxlxgb-xzeybvv-5209-jzjlg-18-correegof- use-a qwzbifqztstev-cnubgct-wcbpdfq/zvhgm-qqosurqzobj-tzda SARS-CoV-2 RNA Source [employer] Swab [facility] Nasopharyngeal Swab 06/26/19 5:46 AM EST 06/26/2021 8:43 AM EST Comment:Symptoms->Surveillan ce Narrative Resulting Agency Comment Spec In Lab Miles Hou MD MOLECULAR ORDERABL ES [facility] [place] [address] * (ABNORMAL) Differential, Automated (06/26/2021 1:31 AM EST) Neutrophil % 71.3 % [facility] Neutrophil Absolute 4.35 1.70 - 6.10 x10(3)/mc L [facility] Lymph % 18.3 % [facility] Lymphocytes Abs 1.1 0.9 - 3.2 x10(3)/mc L [facility] Monocyte % 5.9 % [facility] Monocyte Abs 0.4 0.3 - 0.9 x10(3)/mc L [facility] Eos % 2.6 % [facility] Eosinophils Abs 0.2 0.0 - 0.4 x10(3)/mc L [facility] Basophil % 0.8 % [facility] Baso Absolute 0.0 0.0 - 0.1 x10(3)/mc L [facility] Immature Gran % 1.10 % [facility] Comment: Immature granulocytes(IG's)percentage and absolute count will include metamyelocytes, myelocytes, and promyelocytes. Blood smears from CBCs yielding IG's will be scanned manually for concordance. If this scan disagrees with the automated IG or if promyelocytes are noted, a manual differential will be performed. Immature Gran Absolute 0.07(H) 0.00 - 0.04 x10(3)/[facility] Blood 06/26/2021 1:31 AM EST 06/26/2021 1:42 AM EST Narrative Resulting Agency Comment Spec In Lab Brando Boss MD HEMATOLOGY ORDERA BLES Performing Organization Address City/State/[facility] Co de Phone Number [facility] [place] [address] * (ABNORMAL) Hemogram (06/26/2021 1:31 AM EST) White Blood Cell 6.1 4.0 - 9.5 x10(3)/[facility] Red Blood Cell 3.07(L) 4.58 - 5.54 x10(6)/[facility] Hemoglobin 8.6(L) 13.7 - 16.5 g/dL [facility] Hematocrit 26.5(L) 40.5 - 48.5 % [facility] Mean Cell Volume 86.3 82.9 - 93.1 fL [facility] Mean Cell Hemoglobin 28.0 27.5 - 32.1 pg [facility] Mean Cell Hemoglobin Concentration 32.5 32.0 - 35.7 g/dL [facility] Platelet 166 145 - 357 x10(3)/[facility] RDW Standard Deviation 46.5(H) 36.0 - 45.0 [facility] RDW coefficient of variation 14.6(H) 11.4 - 13.8 % [facility] Mean Platelet Volume 9.8 7.6 - 12.9 fL [facility] NRBC% auto 0.0 % [facility] NRBC Absolute 0.000 0.000 - 0.000 x10(3)/[facility] Blood 06/26/2021 1:31 AM EST 06/26/2021 1:42 AM EST Narrative Resulting Agency Comment Spec In Lab Brando Boss MD HEMATOLOGY ORDERA BLES [facility] [place] [address] * (ABNORMAL) Basic Metabolic Panel (non-fasting) (06/26/2021 1:31 AM EST) Glucose 102 65 - 199 mg/dL [facility] Comment:Diabetes: >=200 mg/d L plus symptoms Blood Urea Nitrogen 18 10 - 20 mg/dL [facility] Creatinine 1.11 0.80 - 1.50 mg/dL [facility] Sodium 138 135 - 145 mmol/L [facility] [...] questions. Chloride 108(H) 98 - 107 mmol/L [facility] Carbon Dioxide 23 22 - 31 mmol/L [facility] Anion Gap 7 5 - 15 mmol/L [facility] Calcium 8.2(L) 8.5 - 10.5 mg/dL [facility] Est Glomerular Filtration Rate 69 >=60 mL/min/1. 73 m?? [facility] [...] Lab Miles Hou MD CHEMISTRY ORDERABL ES [facility] [place] [address] * Differential, Automated (06/25/2021 1:41 AM EST) Neutrophil % 76.0 % [facility] Neutrophil Absolute 5.35 1.70 - 6.10 x10(3)/[facility] Lymph % 16.2 % [facility] Lymphocytes Abs 1.1 0.9 - 3.2 x10(3)/[facility] Monocyte % 5.5 % [facility] Monocyte Abs 0.4 0.3 - 0.9 x10(3)/[facility] Eos % 1.3 % [facility] Eosinophils Abs 0.1 0.0 - 0.4 x10(3)/[facility] Basophil % 0.6 % [facility] Baso Absolute 0.0 0.0 - 0.1 x10(3)/[facility] Immature Gran % 0.40 % [facility] Comment: Immature granulocytes(IG's)percentage and absolute count will include metamyelocytes, myelocytes, and promyelocytes. Blood smears from CBCs yielding IG's will be scanned manually for concordance. If this scan disagrees with the automated IG or if promyelocytes are noted, a manual differential will be performed. Immature Gran Absolute 0.03 0.00 - 0.04 x10(3)/[facility] Blood 06/25/2021 1:41 AM EST 06/25/2021 2:12 AM EST Narrative Resulting Agency Comment Spec In Lab Brando Boss MD HEMATOLOGY ORDERA BLES Performing Organization Address City/[facility]/ZIP Co de Phone Number [facility] [place] [address] * (ABNORMAL) Hemogram (06/25/2021 1:41 AM EST) White Blood Cell 7.0 4.0 - 9.5 x10(3)/mc L [facility] Red Blood Cell 3.22(L) 4.58 - 5.54 x10(6)/mc L [facility] Hemoglobin 8.9(L) 13.7 - 16.5 g/dL [facility] Hematocrit 27.4(L) 40.5 - 48.5 % [facility] Mean Cell Volume 85.1 82.9 - 93.1 fL [facility] Mean Cell Hemoglobin 27.6 27.5 - 32.1 pg [facility] Mean Cell Hemoglobin Concentration 32.5 32.0 - 35.7 g/dL [facility] Platelet 154 145 - 357 x10(3)/mc L [facility] RDW Standard Deviation 45.1(H) 36.0 - 45.0 fL [facility] RDW coefficient of variation 14.6(H) 11.4 - 13.8 % [facility] Mean Platelet Volume 10.2 7.6 - 12.9 fL [facility] NRBC% auto 0.0 % [facility] NRBC Absolute 0.000 0.000 - 0.000 x10(3)/mc L [facility] Blood 06/25/2021 1:41 AM EST 06/25/2021 2:12 AM EST Narrative Resulting Agency Comment Spec In Lab Brando Boss MD HEMATOLOGY ORDERA BLES Performing Organization Address City/[facility]/ZIP Co de Phone Number [facility] [place] [address] * (ABNORMAL) Basic Metabolic Panel (non-fasting) (06/25/2021 1:41 AM EST) Glucose 92 65 - 199 mg/dL [facility] Comment:Diabetes: >=200 mg/d L plus symptoms Blood Urea Nitrogen 21(H) 10 - 20 mg/dL [facility] Creatinine 1.32 0.80 - 1.50 mg/dL [facility] Sodium 137 135 - 145 mmol/L [facility] Potassium 4.5 3.5 - 5.0 mmol/L [facility] Comment: Please note: ??Patients with WBC >100,000 may have falsely elevated Potassium levels. ??For accurate Potassium quantification in these patients send serum separator tube (gold top) for subsequent determinations. ??Contact the Clinical Chemistry Laboratory if there are any questions. Chloride 107 98 - 107 mmol/L [facility] Carbon Dioxide 23 22 - 31 mmol/L [facility] Anion Gap 7 5 - 15 mmol/L [facility] Calcium 8.4(L) 8.5 - 10.5 mg/dL [facility] Est Glomerular Filtration Rate 56(L) >=60 mL/min/1. 73 m?? [facility] [...] Lab Miles Hou MD CHEMISTRY ORDERABL ES [facility] [place] [address] * (ABNORMAL) Differential, Automated (06/24/2021 1:12 AM EST) [facility] Neutrophil % 86.5 % [facility] Neutrophil Absolute 9.85(H) 1.70 - 6.10 x10(3)/mc L [facility] Lymph % 7.1 % [facility] Lymphocytes Abs 0.8(L) 0.9 - 3.2 x10(3)/mc L [facility] Monocyte % 5.7 % [facility] Monocyte Abs 0.6 0.3 - 0.9 x10(3)/ L [facility] Eos % 0.0 % [facility] Eosinophils Abs 0.0 0.0 - 0.4 x10(3)/[facility] Basophil % 0.3 % [facility] Baso Absolute 0.0 0.0 - 0.1 x10(3)/mc L [facility] Immature Gran % 0.40 % [facility] Comment: Immature granulocytes(IG's)percentage and absolute count will include metamyelocytes, myelocytes, and promyelocytes. Blood smears from CBCs yielding IG's will be scanned manually for concordance. If this scan disagrees with the automated IG or if promyelocytes are noted, a manual differential will be performed. Immature Gran Absolute 0.04 0.00 - 0.04 x10(3)/mc L [facility] Blood 06/24/2021 1:12 AM EST 06/24/2021 1:28 AM EST Narrative Resulting Agency Comment Spec In Lab Brando Boss MD HEMATOLOGY ORDERA BLES [facility] [place] [address] * (ABNORMAL) Hemogram (06/24/2021 1:12 AM EST) [facility] White Blood Cell 11.4(H) 4.0 - 9.5 x10(3)/mc L [facility] Red Blood Cell 3.51(L) 4.58 - 5.54 x10(6)/mc L [facility] Hemoglobin 9.7(L) 13.7 - 16.5 g/dL [facility] Comment: This result has been called to BERNARDINO PAYAN by Noreen Streeter on 06 24 2021 at 0219, and has been read back. Hematocrit 30.4(L) 40.5 - 48.5 % [facility] Mean Cell Volume 86.6 82.9 - 93.1 fL [facility] Mean Cell Hemoglobin 27.6 27.5 - 32.1 pg [facility] Mean Cell Hemoglobin Concentration 31.9(L) 32.0 - 35.7 g/dL [facility] Platelet 186 145 - 357 x10(3)/ L [facility] RDW Standard Deviation 46.0(H) 36.0 - 45.0 [facility] RDW coefficient of variation 14.6(H) 11.4 - 13.8 % [facility] Mean Platelet Volume 9.9 7.6 - 12.9 [facility] NRBC% auto 0.0 % [facility] NRBC Absolute 0.000 0.000 - 0.000 x10(3)/mc L [facility] Blood 06/24/2021 1:12 AM EST 06/24/2021 1:28 AM EST Narrative Resulting Agency Comment Spec In Lab Brando Boss MD HEMATOLOGY ORDERA BLES [facility] [facility] [place] [address] * (ABNORMAL) Basic Metabolic Panel (non-fasting) (06/24/2021 1:12 AM EST) Pathologist [facility] Glucose 129 65 - 199 mg/dL [facility] Comment:Diabetes: >=200 mg/d L plus symptoms Blood Urea Nitrogen 22(H) 10 - 20 mg/dL [facility] Creatinine 1.31 0.80 - 1.50 mg/dL [facility] Sodium 136 135 - 145 mmol/L [facility] Potassium 5.3(H) 3.5 - 5.0 mmol/L [facility] Comment: Please note: ??Patients with WBC >100,000 may have falsely elevated Potassium levels. ??For accurate Potassium quantification in these patients send serum separator tube (gold top) for subsequent determinations. ??Contact the Clinical Chemistry Laboratory if there are any questions. Chloride 105 98 - 107 mmol/L [facility] Carbon Dioxide 23 22 - 31 mmol/L [facility] Anion Gap 8 5 - 15 mmol/L [facility] Calcium 8.6 8.5 - 10.5 mg/dL [facility] Est Glomerular Filtration Rate 56(L) >=60 mL/min/1. 73 m?? [facility] [...] Lab Miles Hou MD CHEMISTRY ORDERABL ES [facility] [place] [address] * (ABNORMAL) Differential, Automated (06/23/2021 12:45 PM EST) Neutrophil % 91.4 % [facility] Neutrophil Absolute 7.70(H) 1.70 - 6.10 x10(3)/[facility] Lymph % 5.6 % [facility] Lymphocytes Abs 0.5(L) 0.9 - 3.2 x10(3)/[facility] Monocyte % 2.1 % [facility] Monocyte Abs 0.2(L) 0.3 - 0.9 x10(3)/[facility] Eos % 0.2 % [facility] Eosinophils Abs 0.0 0.0 - 0.4 x10(3)/[facility] Basophil % 0.5 % [facility] Baso Absolute 0.0 0.0 - 0.1 x10(3)/[facility] Immature Gran % 0.20 % [facility] Comment: Immature granulocytes(IG's)percentage and absolute count will include metamyelocytes, myelocytes, and promyelocytes. Blood smears from CBCs yielding IG's will be scanned manually for concordance. If this scan disagrees with the automated IG or if promyelocytes are noted, a manual differential will be performed. Immature Gran Absolute 0.02 0.00 - 0.04 x10(3)/[facility] Blood 06/23/2021 12:4 5 PM EST 06/23/2021 1:11 PM EST Narrative Resulting Agency Comment Spec In Lab Dawn Tello MD HEMATOLOGY ORDERABLE S [facility] [place] [address] * (ABNORMAL) Hemogram (06/23/2021 12:45 PM EST) White Blood Cell 8.4 4.0 - 9.5 x10(3)/[facility] Red Blood Cell 4.55(L) 4.58 - 5.54 x10(6)/mc L [facility] Hemoglobin 12.6(L) 13.7 - 16.5 g/dL [facility] Hematocrit 38.6(L) 40.5 - 48.5 % [facility] Mean Cell Volume 84.8 82.9 - 93.1 fL [facility] Mean Cell Hemoglobin 27.7 27.5 - 32.1 pg [facility] Mean Cell Hemoglobin Concentration 32.6 32.0 - 35.7 g/dL [facility] Platelet 157 145 - 357 x10(3)/mc L [facility] RDW Standard Deviation 45.2(H) 36.0 - 45.0 [facility] RDW coefficient of variation 14.7(H) 11.4 - 13.8 % [facility] Mean Platelet Volume 9.6 7.6 - 12.9 [facility] NRBC% auto 0.0 % [facility] NRBC Absolute 0.000 0.000 - 0.000 x10(3)/mc L [facility] Blood 06/23/2021 12:4 5 PM EST 06/23/2021 1:11 PM EST Narrative Resulting Agency Comment Spec In Lab Dawn Tello MD HEMATOLOGY ORDERABLE S [facility] [place] [address] * (ABNORMAL) Basic Metabolic Panel (non-fasting) (06/23/2021 12:45 PM EST) Glucose 169 65 - 199 mg/dL [facility] Comment:Diabetes: >=200 mg/d L plus symptoms Blood Urea Nitrogen 20 10 - 20 mg/dL [facility] Creatinine 1.21 0.80 - 1.50 mg/dL [facility] Sodium 134(L) 135 - 145 mmol/L [facility] Potassium 4.3 3.5 - 5.0 mmol/L [facility] Comment: Please note: ??Patients with WBC >100,000 may have falsely elevated Potassium levels. ??For accurate Potassium quantification in these patients send serum separator tube (gold top) for subsequent determinations. ??Contact the Clinical Chemistry Laboratory if there are any questions. Chloride 105 98 - 107 mmol/L [facility] Carbon Dioxide 20(L) 22 - 31 mmol/L [facility] Anion Gap 9 5 - 15 mmol/L [facility] Calcium 9.1 8.5 - 10.5 mg/dL [facility] Est Glomerular Filtration Rate 62 >=60 mL/min/1. 73 m?? [facility] [...] Lab Miles Hou MD CHEMISTRY ORDERABL ES [facility] [place] [address] * Surgical Pathology Report (06/23/2021 11:37 AM EST) Final Diagnosis [id number] ? Location: 2WST; 0210; A The signing [...] MD Verified: ??07/02/2021 11:14 ??Pathologist Performed at: ??-[facility] Dept. of Pathology, [place], [place] ?Surgical Pathology DIAGNOSIS A - Left Kidney, biopsy (1) Clear cell renal cell carcinoma, pT3a N1, see synoptic report. Electronically signed by: ?Renea Acuna MD Verified: ??07/02/2021 10:38 ??Pathologist Performed at: ??-[facility] Dept. of Pathology, [place], [place] SYNOPTIC Specimen Parts: ??A Specimen ? [...] 2020 Release ADDITIONAL STUDIES Whole slide scan: [id number] [id number] [id number] [id number] [id number] SPECIMEN(S) SUBMITTED A - Left Kidney, biopsy (1) CLINICAL INFORMATION Renal mass SPECIMEN PROCESSING A - Labeled/Fixative: Left kidney, fresh. Quantity/Size/Weight : Single, 21 x 18 x 10 cm, 2453 g. SPECIMEN DESCRIPTION Resection Specimen: Intact, left, nephrectomy. LESION Size: 17 x 16 x 9.5 cm. Location: Obliterates the mid and lower pole Color: [place]-yellow to red-brown and hemorrhagic. Consistency: soft. Contour: [...] The perinephric soft tissues inked black. Sections/Processing: Merchandise Marker sections in 20 cassettes as follows: ?A1: ??Ureter margin ?A2: ??Vascular margins ?A3: ??Longitudinal section of tumor within renal vein ?A4-A5: ??Tumor within renal pelvis ?A6-A7: ??Tumor in relation to hilar fat margin ?A8-A10: ??Tumor in relation to perinephric fat margin ?A11-A12: ??Tumor in relation to Gerota's fascia ?A13: ??Tumor within renal sinus fat ?A14: ??Tumor with ??adjacent parenchyma ?A15-A16: ??Merchandise Marker areas of tumor heterogeneity ?A17: ??Uninvolved upper pole ?A18-A19: ??Single bisected perihilar lymph node in each cassette ?A20: ??Single intact candidate perihilar lymph node ??ajw 07/02/2021 11:14 AM EST [facility] SPECIMEN FROM KIDNEY / Unknown 06/23/2021 11:37 AM EST 06/23/2021 11:37 AM EST Miles Hou MD PATHOLOGY/CYTOLOGY ORDERABLES Performing Organization Address [facility] Co de Phone Number [facility] [place] [address] * Specimen to Pathology (06/23/2021 11:37 AM EST) AP Specimen 06/23/2021 11:3 7 AM EST 06/23/2021 11:37 AM EST Narrative [facility] - 06/23/2021 11:37 AM EST Specimen requisition ordered. ??Separate Pathology report to follow Miles Hou MD PATHOLOGY/CYTOLOGY ORDERABLES Performing Organization Address [facility] Co ar Phone Number [facility] [place] [address] * (ABNORMAL) BLOOD GAS 2 ARTERIAL (06/23/2021 8:42 AM EST) pH, Arterial 7.42 7.35 - 7.45 [facility] PCO2, Arterial 36 35 - 45 mmHg [facility] PO2, Arterial 245(H) 85 - 104 mmHg [facility] Bicarbonate, Arterial 23.1 20.0 - 26.0 mmol/L [facility] Base Excess, Arterial -1.3 -3.0 - 3.0 mmol/L [facility] Hgb Blood Gas 11.1(L) 13.7 - 16.5 g/dL [facility] Oxyhemoglobin, Arterial 99.0(H) 94.0 - 97.0 % [facility] Carboxyhemoglob in, Arterial 0.1 % [facility] Comment: Nonsmokers: 0.5-1.5% COHB Smokers: Variable, but usually less than 10% Toxic: 20-30% COHB Lethal: Greater than 60% COHB Methemoglobin, Arterial 0.3 <=1.5 % [facility] Na Whole Blood 136 135 - 145 mmol/L [facility] K Whole Blood 4.0 3.5 - 5.0 mmol/L [facility] Comment: Please note: Patients with WBC >100,000 may have falsely elevated Potassium levels. Contact the Clinical Chemistry Laboratory if there are any questions. ICa Whole Blood 1.29 1.15 - 1.33 mmol/L [facility] Comment: Note: ??Total bilirubin higher than 20 mg/dL may lead to falsely low ionized calcium. CL Whole Blood 106 98 - 107 mmol/L [facility] Gluc Whole Bld 103 65 - 199 mg/dL [facility] Comment:Diabetes: >=200 mg/d L plus symptoms. Lactate WB 1.1 0.5 - 2.2 mmol/L [facility] FIO2 Art 60 % [facility] PF Ratio Art 408 [facility] Blood 06/23/2021 8:42 AM EST 06/23/2021 8:42 AM EST Miles Hou MD POINT OF CARE TEST ORDERABLES [facility] [place] [address] * (ABNORMAL) Hemogram (06/23/2021 8:30 AM EST) White Blood Cell 5.8 4.0 - 9.5 x10(3)/mc L [facility] Red Blood Cell 3.90(L) 4.58 - 5.54 x10(6)/mc L [facility] Hemoglobin 10.7(L) 13.7 - 16.5 g/dL [facility] Hematocrit 33.3(L) 40.5 - 48.5 % [facility] Comment: This result has been called to EMERALD WATTS by PIOTR HEBERT on 06 23 2021 at 0900, and has been read back. Mean Cell Volume 85.4 82.9 - 93.1 fL [facility] Mean Cell Hemoglobin 27.4(L) 27.5 - 32.1 pg [facility] Mean Cell Hemoglobin Concentration 32.1 32.0 - 35.7 g/dL [facility] Platelet 190 145 - 357 x10(3)/mc L [facility] RDW Standard Deviation 45.9(H) 36.0 - 45.0 fL [facility] RDW coefficient of variation 14.7(H) 11.4 - 13.8 % [facility] Mean Platelet Volume 9.9 7.6 - 12.9 fL [facility] NRBC% auto 0.0 % [facility] NRBC Absolute 0.000 0.000 - 0.000 x10(3)/mc L [facility] Blood 06/23/2021 8:30 AM EST 06/23/2021 8:53 AM EST Narrative Resulting Agency Comment Spec In Lab Erica Alves MD HEMATOLOGY ORDERABLE S Performing Organization Address City/State/[facility] Co de Phone Number [facility] [place] [address] * Prepare RBC (06/23/2021 8:25 AM EST) Dispensed? Yes [facility] Blood 06/23/2021 8:25 AM EST 06/23/2021 8:25 AM EST Miles Hou MD BLOOD BANK PRODUCT ORDERABLES [facility] [place] [address] * XR Fluoro No Rad <1Hr - OR Use (06/23/2021 7:42 AM EST) Narrative Dicom, Auditing User - 06/23/2021 7:57 AM EST This exam is auto-finalizing. No interpretation was done. Miles Hou MD IMG FLUORO ORDERAB LES * Type and Screen Validity (06/23/2021 7:15 AM EST) T&S only valid at [facility] Comment:This Type and Screen result is only valid at the [facility] Blood 06/23/2021 7:15 AM EST 06/23/2021 7:32 AM EST Narrative Resulting Agency Comment Spec In Lab Miles Hou MD BLOOD BANK LAB ORD ERABLES Performing Organization Address City/[facility]/ZIP Co de Phone Number [facility] [place] [address] * Antibody screen (06/23/2021 7:15 AM EST) Ab Screen Interp Negative [facility] Expires at [id number] on: 06/26/2021 [facility] Blood 06/23/2021 7:15 AM EST 06/23/2021 7:32 AM EST Narrative Resulting Agency Comment Spec In Lab Miles Hou MD BLOOD BANK LAB ORD ERABLES [facility] [place] [address] * ABO/Rh Typing (06/23/2021 7:15 AM EST) ABORH Type A Pos [facility] Blood 06/23/2021 7:15 AM EST 06/23/2021 7:32 AM EST Narrative Resulting Agency Comment Spec In Lab Miles Hou MD BLOOD BANK LAB ORD ERABLES Performing Organization Address City/[facility]/ZIP Co de Phone Number [facility] [place] [address] * Red Tube Hold (06/23/2021 7:10 AM EST) Pathologist [facility] Red Hold Sample in lab. [facility] Blood No Charge / Unknown 06/23/2021 7:10 AM EST 06/23/2021 8:06 AM EST Miles Hou MD CHEMISTRY ORDERABL ES Performing Organization Address [facility] Co de Phone Number [facility] [place] [address] * Differential, Automated (06/23/2021 7:10 AM EST) Neutrophil % 70.9 % [facility] Neutrophil Absolute 5.93 1.70 - 6.10 x10(3)/[facility] Lymph % 17.1 % [facility] Lymphocytes Abs 1.4 0.9 - 3.2 x10(3)/[facility] Monocyte % 7.8 % [facility] Monocyte Abs 0.6 0.3 - 0.9 x10(3)/[facility] Eos % 2.8 % [facility] Eosinophils Abs 0.2 0.0 - 0.4 x10(3)/[facility] Basophil % 1.2 % [facility] Baso Absolute 0.1 0.0 - 0.1 x10(3)/[facility] Immature Gran % 0.20 % [facility] Comment: Immature granulocytes(IG's)percentage and absolute count will include metamyelocytes, myelocytes, and promyelocytes. Blood smears from CBCs yielding IG's will be scanned manually for concordance. If this scan disagrees with the automated IG or if promyelocytes are noted, a manual differential will be performed. Immature Gran Absolute 0.02 0.00 - 0.04 x10(3)/mcL [facility] Blood 06/23/2021 7:10 AM EST 06/23/2021 8:04 AM EST Narrative Resulting Agency Comment Spec In Lab Miles Hou MD HEMATOLOGY ORDERAB LES [facility] [place] [address] * (ABNORMAL) Hemogram (06/23/2021 7:10 AM EST) White Blood Cell 8.4 4.0 - 9.5 x10(3)/mc L [facility] Red Blood Cell 2.42(L) 4.58 - 5.54 x10(6)/mc L [facility] Hemoglobin 6.7(L) 13.7 - 16.5 g/dL [facility] Hematocrit 20.9(L) 40.5 - 48.5 % [facility] Comment: This result has been called to EMERALD WATTS by Milton Godinez on 06 23 2021 at 0821, and has been read back. Mean Cell Volume 86.4 82.9 - 93.1 fL [facility] Mean Cell Hemoglobin 27.7 27.5 - 32.1 pg [facility] Mean Cell Hemoglobin Concentration 32.1 32.0 - 35.7 g/dL [facility] Platelet 279 145 - 357 x10(3)/mc L [facility] RDW Standard Deviation 47.1(H) 36.0 - 45.0 fL [facility] RDW coefficient of variation 14.8(H) 11.4 - 13.8 % [facility] Mean Platelet Volume 10.1 7.6 - 12.9 fL [facility] NRBC% auto 0.0 % [facility] NRBC Absolute 0.000 0.000 - 0.000 x10(3)/mc L [facility] Blood 06/23/2021 7:10 AM EST 06/23/2021 8:04 AM EST Narrative Resulting Agency Comment Spec In Lab Miles Hou MD HEMATOLOGY ORDERAB LES [facility] [place] [address] * (ABNORMAL) Comprehensive metabolic panel (non-fasting) (06/23/2021 [...] Lab Miles Hou MD CHEMISTRY ORDERABL ES [facility] [place] [address] * ABORH Recheck Status (06/23/2021 7:05 AM EST) ABORH Recheck Order Order Placed [facility] ABORH Type Recheck Complete [facility] Blood 06/23/2021 7:05 AM EST 06/23/2021 7:09 AM EST Narrative Resulting Agency Comment Spec In Lab Dawn Tello MD BLOOD BANK LAB ORDER RADHA [facility] [place] [address] * Antibody screen (06/23/2021 7:05 AM EST) Ab Screen Interp Not Performed [facility] Expires at [id number] on: 06/26/2021 [facility] Blood 06/23/2021 7:05 AM EST 06/23/2021 7:09 AM EST Narrative Resulting Agency Comment Spec In Lab Dawn Tello MD BLOOD BANK LAB ORDER RADHA [facility] [place] [address] * EKG 12 Lead (06/23/2021 7:04 AM EST) Ventricular rate 76 BPM MUSE SYSTEM Atrial Rate 76 BPM MUSE SYSTEM P-R Interval 228 ms MUSE SYSTEM QRS Duration 90 ms MUSE SYSTEM Q-T Interval 384 ms MUSE SYSTEM QTC Calculated (Bezet) 432 ms MUSE SYSTEM Calculated P [place] 31 degrees MUSE SYSTEM Calculated R [place] 33 degrees MUSE SYSTEM Calculated T [place] 32 degrees MUSE SYSTEM INTERPRETATION Sinus rhythm with 1st degree A-V block Left atrial enlargement Septal infarct (cited on or before 23-JUN-2021) Abnormal ECG When compared with ECG of 23-JUN-2021 07:03, (unconfirmed) No significant change was found Confirmed by fellow MD Orellana Thara ([id number]) on 06/23/2021 2:47:30 PM Confirmed by MD Waters Jon ([id number]) on 06/23/2021 4:10:38 PM MUSE SYSTEM 06/23/2021 7:04 AM EST 06/23/2021 4:10 PM EST Unknown ECG ORDERABLES Performing Organization Address City/[facility]/ZIP Co de Phone Number MUSE SYSTEM * EKG 12 Lead (06/23/2021 7:03 AM EST) Ventricular rate 77 BPM MUSE SYSTEM Atrial Rate 77 BPM MUSE SYSTEM P-R Interval 228 ms MUSE SYSTEM QRS Duration 92 ms MUSE SYSTEM Q-T Interval 384 ms MUSE SYSTEM QTC Calculated (Bezet) 434 ms MUSE SYSTEM Calculated P [place] 24 degrees MUSE SYSTEM Calculated R [place] 33 degrees MUSE SYSTEM Calculated T [place] 30 degrees MUSE SYSTEM INTERPRETATION Sinus rhythm with 1st degree A-V block Septal infarct , age undetermined Abnormal ECG No previous ECGs available Confirmed by fellow MD Orellana Thara ([id number]) on 06/23/2021 1:55:29 PM Confirmed by MD [...] subcutaneous injection 5,000 Units 5,000 Units, Subcutaneous, JALOUSIES INSTALLER TO O.R., 1 dose, On Wed06/23/21 at [...] Lorena Toledo RN)1735 (Given - Provider: Lorena Toledo, DUANE) 0017 (Given - Provider: Corazon Priest, DUANE)0604 (Given - Provider: Corazon Priest RN)1104 (Given - Provider: Lorena Toledo RN)1728 (Given - Provider: Lorena Toledo RN) 0040 [...] Corazon Priest, DUANE)1800 (Verified - Provider: Lorena Toledo RN) 0600 [...] Priest, DUANE) 0900 (Given - Provider: Lorena Toledo RN)2050 (Given - Provider: Corazon Priest, DUANE) 1001 [...] RN) 0801 (Stopped - Provider: Lorena Toledo, DUANE) PRN Medication Order 06/25/2021 06/26/2021 06/27/2021 HYDROmorphone [...] Unit) documented in this encounter Care Teams Surveyor Chain Helper Relationship Specialty Start Date End Date Lisbet Solitario MD [address] [place] [address] PCP - General Family Medicine 01/30/16 08/19/21 documented as of this encounter
--- OUTSIDE RECORDS SUMMARY | 2024-03-09 10:21 | XMS_ITS | Encounter Summary ---
Author Organization [facility] Address [facility] [place] [address] Care Team Providers Care Coal Getter Name Role Phone Lisbet Solitario MD Primary Care Provider [phone] Encounter Details Date Type Department Care Team (Late st Contact Info) Description 06/02/2021 Telephone Urology at [facility] [place] [phone] Jordan Hou MD [facility] [place] [address] Social History Tobacco Use Types Packs/Day Years [...] like a call back to discuss. PHONE: [phone] documented in this encounter Plan of Treatment Upcoming Encounters Date Type Department Care Team (Late st Contact Info) Description 03/29/2024 10:30 AM EST Laboratory Appointment Lab at [facility] Hematology Oncology [address] [place] [address] 03/29/2024 12:[address] [place] [place] [address] Albino Bartholomew MD [facility] DR HEMATOLOGY [place] [address] 04/05/2024 10:00 AM EST Office Visit [place]ematology [place] [address] Albino Bartholomew MD [facility] DR HEMATOLOGY [place] [address] documented as of this encounter Visit Diagnoses Not on filedocumented in this encounter Care Teams Coal Getter Relationship Specialty Start Date End Date Lisbet Solitario MD [address] [place] [address] PCP - General Family Medicine 01/30/16 08/19/21 documented as of this encounter
--- OUTSIDE RECORDS SUMMARY | 2024-03-09 10:21 | XMS_ITS | Encounter Summary ---
Author Organization [facility] [place] [address] Care Team Providers Care Carton Making Machine Operator Name Role Phone Lisbet Solitario MD Primary Care Provider [phone] Encounter Details Date Type Department Care Team (Late st Contact Info) Description 06/09/2021 11:30 AM EST TH Visit (TeleHealth) [place] [phone] Social History Tobacco Use Types Packs/Day Years [...] [facility] Hematology Oncology [address] [place] [address] 03/29/2024 12:[address] [place] [phone] Albino Bartholomew MD [facility] DR HEMATOLOGY [place] [address] 04/05/2024 10:00 AM EST Office Visit Hematology [place] [address] Albino Bartholomew MD [facility] [address] HEMATOLOGY [place] [address] documented as of this encounter Visit Diagnoses Not on filedocumented in this encounter Care Teams Carton Making Machine Operator Relationship Specialty Start Date End Date Lisbet Solitario MD [address] [place] [address] PCP - General Family Medicine 01/30/16 08/19/21 documented as of this encounter
--- OUTSIDE RECORDS SUMMARY | 2024-03-09 10:21 | XMS_ITS | Encounter Summary ---
Author Organization [facility] Address [facility] [place] [address] Care Team Providers Care Supervisor Garment Manufacturing Name Role Phone Lisbet Solitario MD Primary Care Provider [phone] Encounter Details Date Type Department Care Team (Late st Contact Info) Description 06/02/2021 [place] [address] Jordan Hou MD [facility] [place] [address] Social History Tobacco Use Types Packs/Day Years [...] [facility] [place] [address] [place] [address] 03/29/2024 12:[address] [place] [place] [address] Albino Bartholomew MD [facility] [place] [address] 04/05/2024 10:00 AM EST Office Visit Hematology [place] [address] Albino Bartholomew MD [facility] [place] [address] documented as of this encounter Visit Diagnoses Not on filedocumented in this encounter Care Teams Supervisor Garment Manufacturing Relationship Specialty Start Date End Date Lisbet Solitario MD [address] [place] [address] PCP - General Family Medicine 01/30/16 08/19/21 documented as of this encounter
--- OUTSIDE RECORDS SUMMARY | 2024-03-09 10:21 | XMS_ITS | Encounter Summary ---
Author Organization [facility] [place] [address] Care Team Providers Care Remnants Cutter Name Role Phone Lisbet Solitario MD Primary Care Provider [phone] Encounter Details Date Type Department Care Team (Late st Contact Info) Description 05/20/2021 1:55 PM EST Ancillary Procedure Radiology Library at [facility] [place] [address] Lisbet Solitario MD [address] [place] [address] Social History Tobacco Use Types [...] [facility] Hematology Oncology [address] [place] [address] 03/29/2024 12:[address] [place] [place] [address] Albino Bartholomew MD [facility] HEMATOLOGY [place] [address] 04/05/2024 10:00 AM EST Office Visit [place]emat[place] [address] Albino Bartholomew MD [facility] DR HEMATOLOGY [place] [address] documented as of this encounter Procedures Procedure Name Priority Date/Time Associated Diagnosis Comments FILM LIBRARY STORAGE ONLY CT ABDOMEN AND PELVIS Routine 05/20/2021 1:54 PM EST documented in this encounter Results * Film Library- Storage Only CT Abdomen & Pelvis (05/20/2021 1:54 PM EST) Narrative [facility] - 05/20/2021 1:54 PM EST This exam is auto-finalizing. It's purpose is for storage only. Lisbet Solitario MD G FILM LIBRARY ORD ERABLES [place], [place] documented in this encounter Visit Diagnoses Not on filedocumented in this encounter Care Teams Remnants Cutter Relationship Specialty Start Date End Date Lisbet Solitario MD [address] [place] [address] PCP - General Family Medicine 01/30/16 08/19/21 documented as of this encounter
--- OUTSIDE RECORDS SUMMARY | 2024-03-09 10:21 | XMS_ITS | Encounter Summary ---
Author Organization [facility] [address] Care Team Providers Care Ocularist Name Role Phone Lisbet Solitario MD Primary Care Provider [phone] Reason for Visit * Reason Comments Skin Check Encounter Details Date Type Department Care Team (Late st Contact Info) Description 03/01/2018 8:15 AM EDT Office Visit Dermatology at [facility] [address] [place] [address] Oli Winter MD [address] [facility] [place] [address] Folliculitis; Rodríguez angioma; Seborrheic keratosis; Multiple benign [...] the original note were not included. Dermatology [place], [place] FOLLOW-UP Patient is established to this [...] Winter MD FAAD Section of Dermatology [facility] documented in this encounter Plan of Treatment Upcoming Encounters Date Type Department Care Team (Late st Contact Info) Description 03/29/2024 10:30 AM EST Laboratory Appointment Lab at [facility] Hematology Oncology [address] [place] [address] 03/29/2024 12:[address] [place] [address] Albino Bartholomew MD [facility] DR HEMATOLOGY [place] [address] 04/05/2024 10:00 AM EST Office Visit Hematology [place] [address] Albino Bartholomew MD [facility] DR HEMATOLOGY [place] [address] documented as of this encounter Visit Diagnoses Diagnosis Folliculitis Other specified disease of hair and hair follicles Rodríguez angioma Nevus, non-neoplastic Seborrheic keratosis Other seborrheic keratosis Multiple benign nevi Benign neoplasm of skin, site unspecified Family history of melanoma Family history of other specified malignant neoplasm documented in this encounter Care Teams Ocularist Relationship Specialty Start Date End Date Lisbet Solitario MD [address] [place] [address] PCP - General Family Medicine 01/30/16 08/19/21 documented as of this encounter
--- OUTSIDE RECORDS SUMMARY | 2024-03-09 10:21 | XMS_ITS | Encounter Summary ---
Author Organization [facility] Address [facility] [place] [address] Care Team Providers Care Technology Manager Name Role Phone Lisbet Solitario MD Primary Care Provider [phone] Encounter Details Date Type Department Care Team (Late st Contact Info) Description 05/29/2021 Telephone [place] [address] Brittany Steele Social History Tobacco Use Types [...] ASK: TRAVEL ???Have you travelled outside of [place] ([place], [place], [place], [place], [place], [place]) in the past 14 days??? 2. ASK: [...] Transfer patient to the Covid-19 Hotline Number ([phone]) for further instructions. If 'No' to all of the questions above Is this the first test for Covid 19 No If no, please list date of previous test, result, and type of test (Molecular, Antigen, Antibody orunknown): October 2019, a few home tests, all Neg Resides in Nursing/FDC or other residential setting No Employee or Household Member of Employee No Healthcare Worker No Telephone call placed/received to schedule Covid 19 testing with patient. Ordering provider: Dr. Jordan Hou Testing Facility: [facility] Date of Testin06/20/2021 Time of Testin:00pm Symptoms: [...] [facility] Hematology Oncology [address] [place] [address] 03/29/2024 12:[address] [place] [address] Albino Bartholomew MD [facility] DR HEMATOLOGY [place] [address] 04/05/2024 10:00 AM EST Office Visit Hematology [place] [address] Albino Bartholomew MD [facility] DR HEMATOLOGY [place] [address] documented as of this encounter Visit Diagnoses Not on filedocumented in this encounter Care Teams Technology Manager Relationship Specialty Start Date End Date Lisbet Solitario MD [address] [place] [address] PCP - General Family Medicine 01/30/16 08/19/21 documented as of this encounter
--- OUTSIDE RECORDS SUMMARY | 2024-03-09 10:21 | XMS_ITS | Encounter Summary ---
Author Organization [facility] Address [facility] [place] [address] Care Team Providers Care Activities Attendant Name Role Phone Lisbet Solitario MD Primary Care Provider [phone] Reason for Visit * Auth/Cert Specialty Diagnoses / Procedures Referred By Burak t Referred To Contact Diagnoses Renal mass RENAL MASS Procedures PRO REMV KIDNEY, RADICAL PRO CYSTOURETHROSCOPY @NEPHRECTOMY, RADICAL W\REG LYMPHADENECTOMY &\OR VENA CAVA THROMBECTOMY (WRVU 23.81) CYSTO, CYSTOURETHROSCOPY, DIAGNOSTIC (WRVU 2.23) Referral ID Status Reason Start Date Expiration Date Visits Re quested Visits Authorized [id number] 1 1 Encounter Details Date Type Department Care Team (Late st Contact Info) Description 06/23/2021 7:36 AM EST Anesthesia [place] [address] Erica Alves MD [facility] DR AN[place]ES[place] [address] Caryn Portillo MD [facility] [place] [address] Anesthesia Record Procedure Summary Procedure Name Responsible Anesthesiologist Anesthesia Start Time Anesthesia Stop Time @NEPHRECTOMY, RADICAL W\REG LYMPHADENECTOMY &\OR VENA CAVA THROMBECTOMY ([facility]) (Left: Flank) Erica Alves MD 06/23/21 [...] 0725; metacarpal vein (top of hand), left; jpoy-[id number] catheter system; 20 gauge; Remigio; 06/27/21; 1125 [...] 0815; median vein (underside of arm), right; [id number]-djd-[id number] catheter system; 20 gauge; MD Long; 06/27/21; [...] Procedure Summary Date: 06/23/21 Room / Location: [address] MAIN OR Anesthesia Start: 0736 Anesthesia Stop: 1210 Procedures: @NEPHRECTOMY, RADICAL W\REG LYMPHADENECTOMY &\OR VENA CAVA THROMBECTOMY (WRVU 23.81) (Left Flank) CYSTO, CYSTOURETHROSCOPY, DIAGNOSTIC (WRVU 2.23) (N/A Ureter) Diagnosis: (RENAL MASS) Surgeons: Jordan Hou MD Responsible Provider: Erica Alves MD Anesthesia Type: general ASA Status: 2 All Anesthesia Providers: Anesthesiologist: Erica Alves MD Counter Clerk [employer]: Caryn Portillo MD Vitals Value Taken Time BP 130/96 06/23/21 1203 Temp Pulse 57 06/23/21 1209 Resp 10 06/23/21 1209 SpO2 95 % 06/23/21 1209 Pain Level Vitals shown include unvalidated device data. Patient Location: PACU/[facility] Level of Consciousness: Awake and Alert Pain [...] PA/Lateral dye study (non- subdural, non-vascular, non-intrathecal). Resident/MEDIA ASSISTANT: Kieran Chua MD Second Resident/MEDIA ASSISTANT: SRNA: Fellow: Attending Physician: Lindy Gudino MD [...] [facility] Hematology Oncology [address] [place] [address] 03/29/2024 12:[address] [place] [address] Albino Bartholomew MD [facility] DR HEMATOLOGY [place] [address] 04/05/2024 10:00 AM EST Office Visit Hematology [place] [address] Albino Bartholomew MD [facility] [address] HEMATOLOGY [place] [address] documented as of this encounter Procedures Procedure [...] insertion: L2-3 Needle approach: paramedian Needle Type: Robertoohy Gauge: 17 Needle length: 3.5 in Needle [...] PA/Lateral dye study (non-subdural, non-vascular, non-intrathecal). ?? Resident/MEDIA ASSISTANT: ? Kieran Chua MD Second Resident/MEDIA ASSISTANT: SRNA: ? Fellow: ? Attending Physician: ? Lindy Gudino MD ~~~~~~~~~~~~~~~~~~~~~~~~~~~~~~~~~~~~~~~~~~~~~~~~~~~~~~~~~~~~ Lindy Gudino MD TRANSIT PROOF MACHINE OPERATOR [facility] documented in this encounter Visit Diagnoses Not on filedocumented in this encounter Administered Medications Inactive Administered Medications - up to 3 most recent administrations Medication Order MAR Action Action Date Dose Rate Site ceFAZolin (Ancef) 2 g in dextrose 5% 100 mL infusion 2 g, Intravenous, MANAGER CODING TO O.R., 1 dose, On Wed06/23/21 at [...] mg documented in this encounter Care Teams Activities Attendant Relationship Specialty Start Date End Date Lisbet Solitario MD [address] [place] [address] PCP - General Family Medicine 01/30/16 08/19/21 documented as of this encounter
--- OUTSIDE RECORDS SUMMARY | 2024-03-09 10:21 | XMS_ITS | Encounter Summary ---
Author Organization [facility] Address [facility] [place] [address] Care Team Providers Care Steamfitter Apprentice Name Role Phone Lisbet Solitario MD Primary Care Provider [phone] Encounter Details Date Type Department Care Team (Late st Contact Info) Description 05/28/2021 Telephone Urology at [facility] [place] [address] Jordan Hou MD [facility] [place] [address] Social History Tobacco Use Types Packs/Day Years [...] - 05/28/2021 8:51 AM EST Radiology at [facility] calling in regards to patient, the radiologist [...] [facility] Hematology Oncology [address] [place] [address] 03/29/2024 12:[address] [place] [address] Albino Bartholomew MD [facility] DR [place] [address] 04/05/2024 10:00 AM EST Office Visit [place]ematology [place] [address] Albino Bartholomew MD [facility] DR [place] [address] documented as of this encounter Visit Diagnoses Not on filedocumented in this encounter Care Teams Steamfitter Apprentice Relationship Specialty Start Date End Date Lisbet Solitario MD [address] [place] [address] PCP - General Family Medicine 01/30/16 08/19/21 documented as of this encounter
--- OUTSIDE RECORDS SUMMARY | 2024-03-09 10:22 | XMS_ITS | Encounter Summary ---
Author Organization [facility] Address [address] [place] [address] Care Team Providers Care Truck Technician Name Role Phone Unavailable Primary Care Provider Unavailabl e Encounter Details Date Type Department Care Team (Late st Contact Info) Description 03/17/2022 Lab Requisition [facility] Pathology & Laboratory Medicine - [facility] [address] [place] [address] Outr Resulting Lab, Provider Social History Tobacco [...] PSA 1.3 <=4.5 ng/mL 03/17/2022 23:14 EST [facility] Blood VENOUS BLOOD / Unknown 03/17/2022 7:55 EST 03/17/2022 21:23 EST Narrative [facility] - 03/17/2022 23:14 EST NOTE: Serum PSA concentration should not be interpreted as absolute evidence for the presence or absence of malignant disease. Assayed on Siemens ADVIA Centaur XPT using chemiluminescent technology.??Values obtained by using different assay methods cannot be used interchangeably. Provider Outr Resulting Lab CHEMISTRY & BLOOD GAS ORDERABLES [facility] [address] [place] [address] documented in this encounter Visit Diagnoses Not on filedocumented in this encounter
--- OUTSIDE RECORDS SUMMARY | 2024-03-09 10:22 | XMS_ITS | Encounter Summary ---
Author Organization [facility] Address [address] [place] [address] Care Team Providers Care Natural History Collections Curator Name Role Phone Unavailable Primary Care Provider Unavailabl e Encounter Details Date Type Department Care Team (Late st Contact Info) Description 03/27/2020 Lab Requisition [facility] Pathology & Laboratory Medicine - [facility] [address] [place], [place] [address] Outr Resulting Lab, Provider Social History Tobacco [...] 0.0 - 4.5 ng/mL 04/24/2020 10:[address] [facility] Blood VENOUS BLOOD / Unknown 03/11/2020 8:20 EST 04/23/2020 8:[address] [facility] - 04/24/2020 10:37 EST NOTE: Serum PSA concentration should not be interpreted as absolute evidence for the presence or absence of malignant disease. Assayed on Siemens ADVIA Centaur XPT using chemiluminescent technology.??Values obtained by using different assay methods cannot be used interchangeably. Provider Outr Resulting Lab CHEMISTRY & BLOOD GAS ORDERABLES [facility] [address] [place] [address] documented in this encounter Visit Diagnoses Not on filedocumented in this encounter
--- OUTSIDE RECORDS SUMMARY | 2024-03-09 10:22 | XMS_ITS | Referral Summary ---
Author Organization [facility] Address [address] [place] [address] Care Team Providers Care Class A Regional Truck Driver Name Role Phone Unavailable Primary Care Provider [...] C Antibody Negative Negative 08/14/2021 9:44 EDT [facility] Blood VENOUS BLOOD / Unknown 08/12/2021 10:40 EDT 08/13/2021 16:44 EDT Provider Outr Resulting Lab CHEMISTRY & BLOOD GAS ORDERABLES [facility] [address] [place] [address] from Last 3 Months or Most Recently Relevant to Health Maintenance
--- OUTSIDE RECORDS SUMMARY | 2024-03-09 10:22 | XMS_ITS | Encounter Summary ---
Author Organization [facility] Address [facility] [place] [address] Care Team Providers Care Surg Nurse Name Role Phone Meryl Solitario MD Primary Care Provider [phone] Reason for Visit * Reason Comments Skin Check * Consultation (Routine) - Specialty Diagnoses / Procedures Referred By Burak mcnair Referred To Contact Dermatology Diagnoses Skin check family history malignant melanoma Meryl Solitario MD [address] [place] [address] [facility] Dermatology [address] [place] [address] Referral ID Status Reason Start Date Expiration Date V isits Requested Visits Authorized [id number] Consult, Test & Treat Connection [facility] 01/30/2016 01/29/2017 1 1 Encounter Details Date Type Department Care Team (Late st Contact Info) Description 02/10/2016 10:45 AM EDT Office Visit Dermatology at [facility] [address] [place] [address] Ernst Goel MD [facility] [address] [place] [address] Sebaceous hyperplasia; SK (seborrheic keratosis); [...] 66 Brother: from pancreatic cancer HPI Cristofer Tenorio is a 60 y.o. 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 Ernst Goel MD Sign Designer of Dermatology, Department of Surgery [facility] cc: MERYL SOLITARIO MD documented in this encounter Plan of Treatment Upcoming Encounters Date Type Department Care Team (Late st Contact Info) Description 03/29/2024 10:30 AM EST Laboratory Appointment Lab at [facility] Hematology Oncology [address] [place] [address] 03/29/2024 12:[address] [place] [address] Albino Bartholomew MD [facility] DR HEMATOLOGY [place] [address] 04/05/2024 10:00 AM EST Office Visit Hematology [place] [address] Albino Bartholomew MD [facility] DR HEMATOLOGY [place] [address] documented as of this encounter Visit Diagnoses Diagnosis Sebaceous hyperplasia Other specified disease of sebaceous glands SK (seborrheic keratosis) Other seborrheic keratosis Multiple benign nevi Benign neoplasm of skin, site unspecified Rodríguez angioma Nevus, non-neoplastic documented in this encounter Care Teams Surg Nurse Relationship Specialty Start Date End Date Meryl Solitario MD [address] [place] [address] PCP - General Family Medicine 01/30/16 08/19/21 documented as of this encounter
--- OUTSIDE RECORDS SUMMARY | 2024-03-09 10:22 | XMS_ITS | Encounter Summary ---
Author Organization [facility] Address [address] [place] [address] Care Team Providers Care Mechanical Ordnance Assembler Name Role Phone Unavailable Primary Care Provider Unavailabl e Encounter Details Date Type Department Care Team (Late st Contact Info) Description 11/04/2021 Lab Requisition [facility] Pathology & Laboratory Medicine - [facility] [address] [place] [address] Outr Resulting Lab, Provider Social History Tobacco [...] IgG 845 610-1,616 mg/dL 11/05/2021 13:33 EDT [facility] Blood VENOUS BLOOD / Unknown 11/04/2021 9:45 EDT 11/04/2021 16:38 EDT Provider Outr Resulting Lab CHEMISTRY & BLOOD GAS ORDERABLES [facility] [address] [place] [address] documented in this encounter Visit Diagnoses Not on filedocumented in this encounter
--- OUTSIDE RECORDS SUMMARY | 2024-03-09 10:22 | XMS_ITS | Encounter Summary ---
Author Organization [facility] Address [address] [place] [address] Care Team Providers Care Online Advertising Director Name Role Phone Unavailable Primary Care Provider Unavailabl e Encounter Details Date Type Department Care Team (Late st Contact Info) Description 03/30/2023 Lab Requisition [facility] Pathology & Laboratory Medicine - [facility] [address] [place] [address] Outr Resulting Lab, Provider Social History Tobacco [...] PSA 1.7 <=4.5 ng/mL 03/30/2023 22:36 EST [facility] Blood VENOUS BLOOD / Unknown 03/30/2023 8:40 EST 03/30/2023 21:49 EST Narrative [facility] - 03/30/2023 22:36 EST NOTE: Serum PSA concentration should not be interpreted as absolute evidence for the presence or absence of malignant disease. Assayed on Siemens ADVIA Centaur XPT using chemiluminescent technology.??Values obtained by using different assay methods cannot be used interchangeably. Provider Outr Resulting Lab CHEMISTRY & BLOOD GAS ORDERABLES [facility] [address] [place] [address] documented in this encounter Visit Diagnoses Not on filedocumented in this encounter
--- OUTSIDE RECORDS SUMMARY | 2024-03-09 10:22 | XMS_ITS | Encounter Summary ---
Author Organization [facility] Address [facility] [place] [address] Care Team Providers Care Cake Puller Name Role Phone Lisbet Solitario MD Primary Care Provider [phone] Encounter Details Date Type Department Care Team (Late st Contact Info) Description 03/16/2017 Telephone Dermatology at [facility] [address] [place] [address] Norm Kelley MD [facility] [address] [place] [address] Social History Tobacco Use Types Packs/Day Years [...] earliest convenience. Best numberto reach patient is [phone]. documented in this encounter Plan of Treatment Upcoming Encounters Date Type Department Care Team (Late st Contact Info) Description 03/29/2024 10:30 AM EST Laboratory Appointment Lab at [facility] Hematology Oncology [address] [place] [address] 03/29/2024 12:[address] [place] [place] [address] Albino Bartholomew MD [facility] DR [place] [address] 04/05/2024 10:00 AM EST Office Visit Hematology [place] [address] Albino Bartholomew MD [facility] DR [place] [address] documented as of this encounter Visit Diagnoses Not on filedocumented in this encounter Care Teams Cake Puller Relationship Specialty Start Date End Date Lisbet Solitario MD [address] [place] [address] PCP - General Family Medicine 01/30/16 08/19/21 documented as of this encounter
--- OUTSIDE RECORDS SUMMARY | 2024-03-09 10:22 | XMS_ITS | Encounter Summary ---
Author Organization [facility] Address [address] [place] [address] Care Team Providers Care Simulation Software Engineer Name Role Phone Unavailable Primary Care Provider Unavailabl e Encounter Details Date Type Department Care Team (Late st Contact Info) Description 10/20/2021 Lab Requisition [facility] Pathology & Laboratory Medicine - [facility] [address] [place] [address] Outr Resulting Lab, Provider Social History Tobacco [...] Lyme Ab Negative Negative 10/22/2021 10:[address] [facility] Blood VENOUS BLOOD / Unknown 10/20/2021 17:56 EDT 10/21/2021 17:23 EDT Provider Outr Resulting Lab IMMUNOLOGY A ND SEROLOGY ORDERABLES [facility] [address] [place] [address] documented in this encounter Visit Diagnoses Not on filedocumented in this encounter
--- OUTSIDE RECORDS SUMMARY | 2024-03-09 10:22 | XMS_ITS | Encounter Summary ---
Author Organization [facility] Address [address] [place] [address] Care Team Providers Care Hotel Staff Member Name Role Phone Unavailable Primary Care Provider Unavailabl e Encounter Details Date Type Department Care Team (Late st Contact Info) Description 08/12/[address] [facility] Pathology & Laboratory Medicine - [facility] [address] [place] [address] Outr Resulting Lab, Provider Social History Tobacco [...] 4th Generation Negative Negative 08/14/2021 10:28 EDT [facility] Comment:If acute HIV-1 infec tion is suspected in a high risk patient, submit plasma specimen for HIV-1 RNA quantitation test. Blood VENOUS BLOOD / Unknown 08/12/2021 10:40 EDT 08/13/2021 16:44 EDT Narrative [facility] - 08/14/2021 10:28 EDT Fourth Generation assay performed on the Siemens Centaur XPT. Provider Outr Resulting Lab IMMUNOLOGY A ND SEROLOGY ORDERABLES [facility] [address] [place] [address] documented in this encounter Visit Diagnoses Not on filedocumented in this encounter
--- OUTSIDE RECORDS SUMMARY | 2024-03-09 10:22 | XMS_ITS | Encounter Summary ---
Author Organization [facility] Address [address] [place] [address] Care Team Providers Care It Disaster Recovery Manager Name Role Phone Unavailable Primary Care Provider Unavailabl e Encounter Details Date Type Department Care Team (Late st Contact Info) Description 08/12/2021 Lab Requisition [facility] Pathology & Laboratory Medicine - [facility] [address] [place] [address] Outr Resulting Lab, Provider Social History Tobacco [...] C Antibody Negative Negative 08/14/2021 9:44 EDT [facility] Blood VENOUS BLOOD / Unknown 08/12/2021 10:40 EDT 08/13/2021 16:44 EDT Provider Outr Resulting Lab CHEMISTRY & BLOOD GAS ORDERABLES [facility] [address] [place] [address] documented in this encounter Visit Diagnoses Not on filedocumented in this encounter
--- OUTSIDE RECORDS SUMMARY | 2024-03-09 10:22 | XMS_ITS | Encounter Summary ---
Author Organization [facility] Address [facility] [place] [address] Care Team Providers Care Recovery Analyst Name Role Phone Lisbet Solitario MD Primary Care Provider [phone] Reason for Visit * Reason Comments Skin Check Skin Lesion Encounter Details Date Type Department Care Team (Late st Contact Info) Description 02/12/2017 9:00 AM EDT Office Visit Dermatology at 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 Medications: Current Outpatient Prescriptions Medication Sig Dispense [...] 0.05% apply twice daily as needed Pharmacy: [facility] - Monitor and return to clinic if [...] by Norm Kelley MD Resident in Dermatology [facility] Patient seen and evaluated with staff crew member: Gerri Mcneal MD Section of Dermatology [facility] * Gerri Mcneal MD - 02/12/2017 9:00 [...] [facility] Hematology Oncology [address] [place] [address] 03/29/2024 12:[address] [place] [address] Albino Bartholomew MD [facility] [place] [address] 04/05/2024 10:00 AM EST Office Visit [place] [address] Albino Bartholomew MD [facility] [place] [address] documented as of this encounter Visit Diagnoses Diagnosis Multiple benign nevi Benign neoplasm of skin, site unspecified Scar Scar condition and fibrosis of skin Dermatofibroma Benign neoplasm of skin, site unspecified Seborrheic keratosis, inflamed Inflamed seborrheic keratosis documented in this encounter Care Teams Recovery Analyst Relationship Specialty Start Date End Date Lisbet Solitario MD [address] [place] [address] PCP - General Family Medicine 01/30/16 08/19/21 documented as of this encounter
--- OUTSIDE RECORDS SUMMARY | 2024-03-09 10:22 | XMS_ITS | Clinical Summary ---
Author Organization [facility] Address [address] [place] [address] Care Team Providers Care Gas Operations Analyst Name Role Phone Unavailable Primary Care Provider [...] C Antibody Negative Negative 08/14/2021 9:44 EDT [facility] Blood VENOUS BLOOD / Unknown 08/12/2021 10:40 EDT 08/13/2021 16:44 EDT Provider Outr Resulting Lab CHEMISTRY & BLOOD GAS ORDERABLES [facility] [address] [place] [address] from Last 3 Months or Most Recently Relevant to Health Maintenance
--- OUTSIDE RECORDS SUMMARY | 2024-03-09 10:22 | XMS_ITS | Encounter Summary ---
Author Organization [facility] Address [address] [place] [address] Care Team Providers Care E Business Consultant Name Role Phone Unavailable Primary Care Provider Unavailabl e Encounter Details Date Type Department Care Team (Late st Contact Info) Description 03/13/2021 Lab Requisition [facility] Pathology & Laboratory Medicine - [facility] [address] [place] [address] Outr Resulting Lab, Provider Social History Tobacco [...] 0.0 - 4.5 ng/mL 03/13/2021 18:24 EST [facility] Blood VENOUS BLOOD / Unknown 03/12/2021 9:35 EST 03/13/2021 17:25 EST Narrative [facility] - 03/13/2021 18:24 EST NOTE: Serum PSA concentration should not be interpreted as absolute evidence for the presence or absence of malignant disease. Assayed on Siemens ADVIA Centaur XPT using chemiluminescent technology.??Values obtained by using different assay methods cannot be used interchangeably. Provider Outr Resulting Lab CHEMISTRY & BLOOD GAS ORDERABLES [facility] [address] [place] [address] documented in this encounter Visit Diagnoses Not on filedocumented in this encounter
--- OUTSIDE RECORDS SUMMARY | 2024-03-09 10:22 | XMS_ITS ---
[place] [address] Care Team Providers Care Apartment Leasing Agent Name Role Phone Juan Dempsey MD Primary Care Provider [phone] HemOnc Status:Un-enrolled (Enrolling) Start date:02/26/2022 Enrollment reason:Un-enrolled - Therapy Discontinued Linked medications:cabozantinib s-malate (Discontinued) Linked problems:Renal cell carcinoma (Active) Continued Care and Services Coordination
[2024-03-09 11:13] LABS: Abs Immature Grans 0.06 10^3/uL (0.0-0.06); Absolute Eosinophil Count 0.03 10^3/uL (0.0-0.7); Absolute Monocyte Count 0.35 10^3/uL (0.1-0.8); Basophils % 0.5 %; Eosinophils % 0.3 %; HCT 46.7 % (40.0-50.0); HGB 15.5 g/dL (13.5-17.5); Immature Grans % 0.5 %; Lymphocytes % 5.1 %; MCH 29.8 pg (27.0-33.0); MCHC 33.2 % (32.0-36.0); MCV 90 fL (80-95); MPV 9.4 fL (8.0-11.0); Monocytes % 3.2 %; Neutrophils % 90.4 %; Platelet Count 171 10^3/uL (130-400); RDW 14.6 % (11.8-14.1); RDW-SD 48.2 fL; WBC 11.08 10^3/uL (4.4-10.8)
[2024-03-09] MEDS: ACETAMINOPHEN 1,000 MG/100 ML BAG 400 MG IVPB (11:13)
[2024-03-09] MEDS: Ondansetron 4 MG/2 ML VIAL IVP ×2 (11:13→16:02)
[2024-03-09 11:14] LABS: Absolute Basophil Count 0.06 10^3/uL (0.0-0.2); Absolute Lymphocyte Count 0.57 10^3/uL (1.2-3.4); Absolute Neutrophil Count 10.02 10^3/uL (1.2-6.7)
--- NOTE | 2024-03-09 11:30 | DI.MRI_ITS ---
Exam(s) MR ABDOMEN WO EXAM: MR ABDOMEN WO CLINICAL HISTORY: elvated lipase and known gallstones TECHNIQUE: Multiplanar multisequence MRI of the Abdomen was performed. COMPARISON: CT CT ABDOMEN PELVIS WO/W from 05/20/2021 CR,XR XR CHEST 2V PA LATERAL from 01/13/2022 US US ABDOMEN from 02/03/2024 FINDINGS: Lung bases: There are pulmonary nodules in the lung bases. The largest is in the left lower lobe lita sures 2.5 x 1.6 cm. Findings are suspicious for metastatic disease. Liver: No evidence of a renal mass. Pancreas: There is inflammatory stranding seen around the pancreas. There is a 1.0 cm well-circumscr ibed cystic lesion at the superior aspect of the body of the pancreas (series 4001, image 21). This was not present on the CT scan of the abdomen and pelvis from 05/20/2021. There is inflammatory stran ding also seen in the retroperitoneum and the region of the left upper quadrant. Gallbladder and Bile Ducts: Cholelithiasis. No evidence of choledocholithiasis. No biliary ductal d ilatation. Adrenals: Unremarkable. Kidneys: There has been interval resection of the left kidney. There are small simple cysts seen in the right kidney. The largest measures 1.4 cm. No follow-up is recommended. There is again seen an exophytic cyst at the superior posterior aspect of the right kidney. Spleen: Unremarkable. Bowel: Unremarkable. Aorta: Unremarkable. Soft Tissues: Unremarkable. Bone: Unremarkable. Lymph Nodes: Unremarkable. IMPRESSION: 1. Cholelithiasis but no evidence of choledocholithiasis or biliary ductal dilatation. 2. Inflammation in the upper abdomen particularly around the pancreas which may reflect an acute panc reatitis. There is a new 1 cm well-circumscribed cystic lesion in the superior aspect of the body of the pancreas. 3. Status post left nephrectomy. 4. Multiple pulmonary nodules. The findings are suspicious for metastatic disease. 5. Findings were discussed with Dr. Amador at 2:55 p.m. on 03/09/2024. DATA REPOSITORY:
[2024-03-09 11:31] LABS: ALT 963 U/L (16-63); AST 404 U/L (15-37); Albumin 3.6 g/dL (3.4-5.0); Alkaline Phosphatase 422 U/L (46-116); Anion Gap 7.8 mmol/L (3-11); BUN 20 mg/dL (7-18); Bilirubin, Total 2.59 mg/dL (0.2-1.0); CO2 30.2 mmol/L (21.0-32.0); CREATININE 1.7 mg/dL (0.70-1.30); Calcium 9.7 mg/dL (8.5-10.1); Chloride 99 mmol/L (98-107); Glucose 196 mg/dL (74-106); Potassium 3.6 mmol/L (3.5-5.1); Sodium 137 mmol/L (136-145); Total Protein 7.8 g/dL (6.4-8.2)
[2024-03-09 11:32] LABS: Lipase > 375 U/L (16-77)
--- NOTE | 2024-03-09 11:44 | W.ED.GENAD ---
Discharge Plan Disposition Patient Disposition: Admit to [facility] Condition: Stable Discharge Details Chief Complaint: Abd Prob Clinical Impression: Pancreatitis, Elevated bilirubin Primary Care Provider: Juan Dempsey ED Provider: Holger Amador Home Meds and New Rx's Prescriptions: No Action losartan 100 mg tablet 100 mg PO DAILY diphenhydramine HCl [Benadryl] 25 mg capsule 25 mg PO Q6H PRN chlorthalidone 25 mg tablet 25 mg PO DAILY amlodipine 10 mg tablet 10 mg PO DAILY Patient Comments: TAKE ONE TABLET BY MOUTH EVERY DAY FOR BLOOD PRESSURE Eliquis DVT-PE Treat 30D Start 5 mg (74 tabs) tablets,dose pack See Rx Instructions .ROUTE .COMPLEX Qty: 74 0RF Rx Instructions: orally per package directions meclizine 25 mg tablet 25 mg PO TID PRN (Reason: dizziness) Qty: 30 0RF HPI General Date/Time Provider Initiated Documentation: 03/09/24 10:52. Limitations to Documentation: no limitations. Information obtained by: patient. HPI Narrative: 69-year-old gentleman with past medical history of renal cell carcinoma followed by oncology at [facility]. Was recently on oral chemotherapy for maintenance but has recently discovered enlargement and pulmonary nodules, so he has been removed from that pending transition to new therapy. He reports that about 2 weeks ago he had some abdominal pain and was diagnosed with gallstones. He reports that his pain returned last night. He describes that it is in the middle and to the left and that it is worse with food. It is associated with vomiting. He initially thought it was due to eating some bad food a few days ago. At that time he had a few episodes of diarrhea. The pain is pretty significant at this time. No fever. Related Data Home Medications ?Medication ?Instructions ?Recorded ?Confirmed diphenhydramine HCl 25 mg capsule 25 mg PO Q6H PRN 04/03/21 03/09/24 (Benadryl) losartan 100 mg tablet 100 mg PO DAILY 04/03/21 03/09/24 amlodipine 10 mg tablet 10 mg PO DAILY 10/20/21 03/09/24 apixaban 5 mg (74 tabs) tablets in See Rx Instructions PO .COMPLEX 10/20/21 03/09/24 a dose pack (Eliquis DVT-PE Treat #74 dose pk 30D Start) meclizine 25 mg tablet 25 mg PO TID PRN dizziness #30 tabs 01/13/22 03/09/24 chlorthalidone 25 mg tablet 25 mg PO DAILY 04/30/22 03/09/24 Previous Rx's ?Medication ?Instructions ?Recorded apixaban 5 mg (74 tabs) tablets in See Rx Instructions PO .COMPLEX 10/20/21 a dose pack (Eliquis DVT-PE Treat #74 dose pk 30D Start) meclizine 25 mg tablet 25 mg PO TID PRN dizziness #30 tabs 01/13/22 Allergies Allergy/AdvReac Type Severity Reaction Status Date / Time peanut Allergy Intermediate rash/mouth Unverified 03/09/24 11:07 swelling General Stated Complaint: Abd Prob TOSHA: 3 Exam Narrative Exam Narrative: Review of Systems: All systems reviewed & are unremarkable except as noted in HPI and below Well-developed, no acute distress NCAT + Icterus RRR Unlabored respiratory effort, clear bilaterally Mild abdominal distention with epigastric and left upper quadrant tenderness Course Vital Signs Vital signs: Vital Signs Temperature 36.7 C 03/09/24 10:06 Pulse 74 03/09/24 10:06 Respiratory Rate 20 03/09/24 10:06 Blood Pressure 138/82 03/09/24 10:06 Pulse Oximetry 98 03/09/24 10:06 Temperature 37.0 C 03/09/24 10:45 Temperature Source Oral 03/09/24 10:45 Pulse 70 03/09/24 10:45 Respiratory Rate 20 03/09/24 10:06 Respiratory Effort Normal 03/09/24 10:45 Blood Pressure 163/80 H 03/09/24 10:45 Blood Pressure Position Sitting 03/09/24 10:06 Pulse Oximetry 98 03/09/24 10:45 Oxygen Delivery Method Room Air 03/09/24 10:45 Oxygen Flow Rate 0 03/09/24 10:06 Pain Level 5 03/09/24 10:45 Lab/Test Results Lab/Test Results: Laboratory Tests Range/Units 03/09/24 11:00 WBC (4.4-10.8) 10^3/uL 11.08 H RBC (4.36-5.78) 10^6/uL 5.20 Hgb (13.5-17.5) g/dL 15.5 Hct (40.0-50.0) % 46.7 MCV (80-95) fL 90 MCH (27.0-33.0) pg 29.8 MCHC (32.0-36.0) % 33.2 RDW (11.8-14.1) % 14.6 H Plt Count (130-400) 10^3/uL 171 MPV (8.0-11.0) fL 9.4 Immature Gran % % 0.5 Neutrophils % % 90.4 Lymphocytes % % 5.1 Monocytes % % 3.2 Eosinophils % % 0.3 Basophils % % 0.5 Nucleated RBC % (0.0-0.3) % 0.0 Absolute Neutrophils (1.2-6.7) 10^3/uL 10.02 H Absolute Lymphocytes (1.2-3.4) 10^3/uL 0.57 L Absolute Monocytes (0.1-0.8) 10^3/uL 0.35 Absolute Eosinophils (0.0-0.7) 10^3/uL 0.03 Absolute Basophils (0.0-0.2) 10^3/uL 0.06 Sodium (136-145) mmol/L 137 Potassium (3.5-5.1) mmol/L 3.6 Chloride (98-107) mmol/L 99 Carbon Dioxide (21.0-32.0) mmol/L 30.2 Anion Gap (3-11) mmol/L 7.8 BUN (7-18) mg/dL 20 H Creatinine (0.70-1.30) mg/dL 1.7 H Est GFR (CKD-EPI 2020) (mL/min/1.73m2) 43.10 Glucose (74-106) mg/dL 196 H Calcium (8.5-10.1) mg/dL 9.7 Total Bilirubin (0.2-1.0) mg/dL 2.59 H AST (15-37) U/L 404 H ALT (16-63) U/L 963 H Alkaline Phosphatase (46-116) U/L 422 H Total Protein (6.4-8.2) g/dL 7.8 Albumin (3.4-5.0) g/dL 3.6 Lipase (16-77) U/L > 375 H Medical Decision Making Emergent evaluation of abdominal pain. Initial differential includes cholelithiasis, pancreatitis, bowel obstruction, colitis. Symptoms are not located in the right upper quadrant. He is afebrile. I did review his prior emergency department workup and at that time he did have cholelithiasis. I am concerned that the patient does have some mild scleral icterus and that an obstructive etiology may be present. Plan for labs, pain control and imaging. 1144 been Lab work reviewed. I am concerned for significantly elevated lipase consistent with pancreatitis. Patient's bilirubin is also elevated. He has known gallstones on most recent ultrasound dated February 02. I submit suspicion for gallstone pancreatitis. Will hold CT scan and get MRCP to further evaluate. Will keep n.p.o. and start on maintenance fluids. 1500 Discussed MRCP findings with the radiologist, there is sign of inflammation and pancreatitis. There is no choledocholithiasis or enlargement of bile ducts. And no stone noted. Regarding his malignancy, there is concern for increased size of the pulmonary nodules which the patient is aware of. At this time will admit to this hospital for further management and fluid resuscitation. Quality:SDOH Health Related Social Needs: No Data to Display [facility] All Active Problems (Updated 03/09/24 @ 15:27 by Holger Amador MD) Elevated bilirubin (Acute) Pancreatitis (Chronic) Sensorineural hearing loss (SNHL) of both ears (Acute) Umbilical hernia (Acute) Positive fecal occult blood test (Acute) Screening for colon cancer (Acute) Seasonal allergies (Acute) Overweight (Acute) Heart murmur (Acute) Medical History Toxic hepatitis Acute DVT (deep venous thrombosis) Peripheral edema Burning mouth syndrome Ingrown toenail Dizziness 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 Obesity Renal cell carcinoma Hyperlipidemia Hypertension Surgical History H/O Achilles tendon repair H/O left nephrectomy History of hernia repair Social History Smoking/Tobacco Use Status: Never Smoking risk assessment performed?: Yes Alcohol Intake: former Drug use: Never Substance use type: does not use Details: no alcohol x40 years Household members: spouse Housing: house 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
[2024-03-09] MEDS: DEXTROSE 5%-0.9% SALINE 1,000 ML 80 ML IV (12:18)
[2024-03-09 13:08] LABS: Bilirubin Small (Negative); Blood Negative (Negative); Clarity Clear (Clear); Glucose Negative (Negative); Ketones Negative (Negative); Leukocyte Esterase Negative (Negative); Nitrite Negative (Negative); Specific Gravity 1.015 (1.005-1.025)
[2024-03-09 13:16] LABS: Bacteria Few HPF (Negative); C & S Indicated? No; Casts Negative LPF (Negative); Crystals Negative HPF (Negative); Epithelial Cells Negative HPF (Negative); Mucus Trace (Negative); RBC 0-2 HPF (0-2); WBC 0-2 HPF (0-5)
--- NOTE | 2024-03-09 15:20 | W.PM.HP.N ---
Date of service: 03/09/24 Time of Service: 15:23 Assessment and Plan Assessment and plan (1) Pancreatitis: Status: Chronic Assessment and plan: IVF: LR at 125 cc/hr PRN hydromorphone PRN ondansetron (2) Transaminitis: Assessment and plan: Hx of transaminitis with immunotherapy- LFT's were improving Increased LFT's again in the setting of pancreatitis CMP in AM (3) Renal cell carcinoma: Assessment and plan: Follow by [facility]: Oral chemo on hold at this time Patient mentioned appointment on 03/29/24 to plan with oncology (4) Hypertension: Assessment and plan: On home dose Losartan (5) Hyperlipidemia: Assessment and plan: In the setting of transaminitis , statins would not be appropriate but will reevaluate Consider Zetia (6) Contraindication to deep vein thrombosis (DVT) prophylaxis: Status: Acute Assessment and plan: 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 Giles History of Present Illness History of Present Illness Chief Complaint: Abdominal pain nausea vomiting Narrative: This 69 years old male patient with past medical history of renal cell carcinoma follow by oncology at [facility] and no longer on oral chemotherapy for maintenance due to the discovery of primary site enlargement and pulmonary nodule findings presented to [facility] emergency department today with complaints of recurrent abdominal pain on 03/27/2024 after having being diagnosed around February 02 with gallstones; the patient was discharged after improvement of symptoms. The pain has been described and in the middle of his abdomen to the left and worsening with food intake; also associated with vomiting without hematemesis. Patient also reported a few episodes of diarrhea without hematochezia. Patient denied chills or fever. Workup in the ED was significant for WBC at 11.08, BUN and creatinine of 20 and 1.7 with previous values 28 and 1.7, AST at 4 4, ALT at 963 and alk phos at 422 significantly more elevated than previous values from 02/03/2024. Lipase was over 375. The hospitalist was consulted and the patient admitted to the medical surgical floor for evaluation and management of acute pancreatitis. The patient was seen in the ED reporting pain improved from 7 to now at 5. The patient reported that is prodrome included being lightheaded, feeling tired and feeling of malaise. Denied headache, chest or back pain, shortness of breath, or dysuria. Patient reported having sustained liver injury due to IV immunotherapy, been off oral chemotherapy but with plans to reconsult oncology on further treatment. The patient would like to receive CPR and agreed to intubation. Review of Systems All systems reviewed & are unremarkable except as noted in HPI and below PFSH All Active Problems (Updated 03/09/24 @ 16:47 by Natalie Givens APRN) Contraindication to deep vein thrombosis (DVT) prophylaxis (Acute) Elevated bilirubin (Acute) Pancreatitis (Chronic) Sensorineural hearing loss (SNHL) of both ears (Acute) Umbilical hernia (Acute) Positive fecal occult blood test (Acute) Screening for colon cancer (Acute) Seasonal allergies (Acute) Overweight (Acute) Heart murmur (Acute) Medical History Toxic hepatitis Acute DVT (deep venous thrombosis) Peripheral edema Burning mouth syndrome Ingrown toenail Dizziness 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 Obesity Renal cell carcinoma Hyperlipidemia Hypertension Surgical History H/O Achilles tendon repair H/O left nephrectomy History of hernia repair Social History Smoking/Tobacco Use Status: Never Smoking risk assessment performed?: Yes Alcohol Intake: former Drug use: Never Substance use type: does not use Details: no alcohol x40 years Household members: spouse Housing: house 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 Meds Allergies and Home Medications Allergies Allergy/AdvReac Type Severity Reaction Status Date / Time peanut Allergy Intermediate rash/mouth Unverified 03/09/24 11:07 swelling Home Medications ?Medication ?Instructions ?Recorded ?Confirmed ?Type diphenhydramine HCl 25 mg capsule 25 mg PO Q6H PRN 04/03/21 03/09/24 History (Benadryl) losartan 100 mg tablet 100 mg PO DAILY 04/03/21 03/09/24 History amlodipine 10 mg tablet 10 mg PO DAILY 10/20/21 03/09/24 History meclizine 25 mg tablet 25 mg PO TID PRN dizziness #30 tabs 01/13/22 03/09/24 Rx chlorthalidone 25 mg tablet 25 mg PO DAILY 04/30/22 03/09/24 History apixaban 5 mg tablet (Eliquis) 5 mg PO BID 03/09/24 03/09/24 History Results Labs 03/09/24 11:00 03/09/24 11:00 Labs: Laboratory Results - last 24 hr 03/09/24 03/09/24 11:00 13:00 WBC 11.08 H RBC 5.20 Hgb 15.5 Hct 46.7 MCV 90 MCH 29.8 MCHC 33.2 RDW 14.6 H Plt Count 171 MPV 9.4 Immature Gran % 0.5 Neutrophils % 90.4 Lymphocytes % 5.1 Monocytes % 3.2 Eosinophils % 0.3 Basophils % 0.5 Nucleated RBC % 0.0 Absolute Neutrophils 10.02 H Absolute Lymphocytes 0.57 L Absolute Monocytes 0.35 Absolute Eosinophils 0.03 Absolute Basophils 0.06 Sodium 137 Potassium 3.6 Chloride 99 Carbon Dioxide 30.2 Anion Gap 7.8 BUN 20 H Creatinine 1.7 H Est GFR (CKD-EPI 2020) 43.10 Glucose 196 H Calcium 9.7 Total Bilirubin 2.59 H AST 404 H ALT 963 H Alkaline Phosphatase 422 H Total Protein 7.8 Albumin 3.6 Lipase > 375 H Urine Color Yellow Urine Clarity Clear Urine pH 7.0 Ur Specific [place] 1.015 Urine Protein 30 H Urine Ketones Negative Urine Blood Negative Urine Nitrite Negative Urine Bilirubin Small H Urine Urobilinogen 1.0 H Ur Leukocyte Esterase Negative Urine RBC 0-2 Urine WBC 0-2 Ur Epithelial Cells Negative Urine Crystals Negative Urine Bacteria Few Urine Casts Negative Urine Mucus Trace Ur Culture Indicated? No Urine Glucose Negative Last Vital Signs Temp 37.1 C 03/09/24 14:38 Pulse 66 03/09/24 14:38 Resp 16 03/09/24 14:38 BP 154/74 H 03/09/24 14:38 Pulse Ox 95 03/09/24 14:38 Time Spent Time spent with Patient: >75 minutes Time was spent: preparing to see the patient(eg.review tests), obtaining and/or reviewing separately otained hiistory, ordering medications,tests, procedures, referring, communicating with other health career resource technician, indepentently interpreting results, counseling the patient and care coordination
[2024-03-09] MEDS: MORPHine 4 MG/ML SYR IVP (16:01)
--- OUTSIDE RECORDS SUMMARY | 2024-03-09 16:50 | XMS_ITS ---
Author Organization [facility] Address [facility] [place] [address] Care Team Providers Care Nurse Discharge Planner Name Role Phone Juan Dempsey MD Primary Care Provider [phone] Active Problems Problem Noted Date Diagnosed Date [...] treatments are documented for this patient in [facility]. Treatments may have been administered in another system. Lifetime Dose Tracking * Chemical Lifetime Dose Automatic Entry Manual Entr y DLP (Dose Length Product) 1,217 mGy-cm 1,217 mGy-cm 0 mGy-cm CTDI (CT Dose Index) Min 24.09 mGy 24.09 mGy 0 m Gy CTDI (CT Dose Index) Max 24.09 mGy 24.09 mGy 0 m Gy
--- OUTSIDE RECORDS SUMMARY | 2024-03-09 16:50 | XMS_ITS | Clinical Summary ---
Author Organization Formerly [facility] Address [facility] [place] [address] Care Team Providers Care Hazardous Material Technician Name Role Phone Juan Dempsey MD Primary Care Provider [phone] Allergies Active Allergy Reactions Criticality Noted Date [...] 11:30 AM EST Office Visit Gastroenterology at [place] [phone] Ana Prinlge MD Drug induced liver disease 03/07/2024 Travel 03/06/2024 Refill Hematology and Oncology at [place] [phone] Kelin Carlos APRN 03/03/2024 Telephone [place] [address] Daxa Arriola, DUANE 02/29/2024 Orders [place] [address] Ana Pringle MD Autoimmune hepatitis 02/29/2024 Travel 02/22/2024 Specialty Pharmacy Pharmacy at [place] [phone] Reshma Gar [facility] 02/16/2024 1:30 PM EDT Office Visit Hematology and Oncology at [place] [phone] Albino Bartholomew MD Metastatic renal cell carcinoma to lung, unspecified laterality (Primary Dx); Abnormal thyroid function test; Renal cell carcinoma of left kidney; High risk medication use; Abnormal liver enzymes 02/16/2024 12:15 PM EDT Laboratory Appointment Lab at [facility] Hematology Oncology [address] [place] [address] Metastatic renal cell carcinoma to lung, unspecified laterality; High risk medication use; Abnormal thyroid function test; Renal cell carcinoma of left kidney 02/16/2024 Travel 02/11/2024 Travel 02/10/2024 Orders Only [place] [address] Albino Bartholomew MD Renal cell carcinoma of left kidney; High risk medication use; Abnormal thyroid function test 02/09/2024 12:30 PM EDT Laboratory Appointment Lab at [facility] Hematology [address] [address] Metastatic renal cell carcinoma to lung, unspecified laterality; High risk medication use; Abnormal thyroid function test 02/09/2024 11:47 AM EDT - 02/09/2024 11:59 PM EDT Hospital Encounter CT Scan at [place] [phone] Mitali Griffiths APRN Renal cell carcinoma of left kidney Discharge Disposition: Home 02/08/2024 Travel 02/06/2024 Orders Only [place] [address] Albino Bartholomew MD 02/04/2024 Telephone [place] [address] Padmini Mckeon RN 02/03/2024 Ancillary Procedure Radiology Library at [place] [address] Juan Dempsey MD 02/01/2024 Telephone Dermatology at [facility] [address] [place] [phone] Oli Winter MD 01/31/2024 Telephone Dermatology at [facility] [address] [place] [address] Suzy Suarez LPN 01/31/2024 Telephone Dermatology at [facility] [address] [place] [address] Oli Winter MD 01/27/2024 Telephone Dermatology at [facility] [address] [place] [address] Oli Winter MD 01/24/2024 11:30 AM EDT Office Visit Dermatology at [facility] [address] [place] [address] Oli Winter MD Seborrheic keratosis; Multiple benign nevi; Lentigines; Rodríguez angioma; Folliculitis decalvans; Folliculitis; Family history of melanoma; Sebaceous hyperplasia 01/24/2024 Travel 01/18/2024 Refill [place] [address] Kelin Carlos APRN Hypokalemia 01/17/2024 Specialty [place] [address] Jonas Vásquez, [facility] Refill Coordination - 28 day recurrence (cabozantinib s-malate) for HemOnc 01/17/2024 [place] [address] Kelin Carlos APRN 01/17/2024 Travel 12/13/2023 Specialty [place] [address] Sharda Lee, [facility] Refill Coordination - 28 day recurrence (cabozantinib s-malate) for HemOnc, Clinical Assessment - 10 month recurrence (cabozantinib s-malate) for HemOnc 12/10/2023 Specialty [place] [address] Sharda Lee, [facility] Refill Coordination - 28 day recurrence (cabozantinib s-malate) for HemOnc 12/08/2023 1:30 PM EDT Office Visit [place] [address] Mitali Griffiths APRN Renal cell carcinoma of left kidney; Medication management; High risk medication use; Metastatic renal cell carcinoma to lung, unspecified laterality; Abnormal thyroid function test; Hypokalemia; Autoimmune hepatitis 12/08/2023 11:49 AM EDT - 12/08/2023 11:59 PM EDT Hospital Encounter [place] [address] Metastatic renal cell carcinoma to lung, unspecified laterality; High risk medication use; Abnormal thyroid function test; Renal cell carcinoma of left kidney Discharge Disposition: Home 12/08/2023 Travel from Last 3 Months Immunizations Name Administration Dates Next Due Covid-19 Monovalent (Moderna Spikevax) 12yrs+ ([id number]) 02/24/2021,07/31/2020,07/03/2020 Zoster Recombinant (ShingRix) 03/16/2019 Family History [place] [facility] [place] [address] [place] [address] 03/29/2024 12:[address] [place] [place] [address] Albino Bartholomew MD [facility] [place] [address] 04/05/2024 10:00 AM EST Office Visit Hematology and Oncology at [facility] [place] [address] Albino Bartholomew MD [facility] DR H[place]AT[place] [address] Health Maintenance Due Date Last Done Comments [...] Facing Action Plan Sharda Lozano, [facility] Note: Remain 95% [...] 9.50 x10(3)/mc L 02/16/2024 12:11 PM EDT [facility] Red Blood Cell 4.73 4.58 - 5.54 x10(6)/mc L 02/16/2024 12:11 PM EDT [facility] Hemoglobin 14.0 13.7 - 16.5 g/dL 02/16/2024 12:11 PM EDT [facility] Hematocrit 43.6 40.5 - 48.5 % 02/16/2024 12:11 PM EDT [facility] Mean Cell Volume 92.2 82.9 - 93.1 fL 02/16/2024 12:[address] [facility] Mean Cell Hemoglobin 29.6 27.5 - 32.1 pg 02/16/2024 12:[address] [facility] Mean Cell Hemoglobin Concentration 32.1 32.0 - 35.7 g/dL 02/16/2024 12:[address] [facility] Platelet 208 145 - 357 x10(3)/mc L 02/16/2024 12:[address] [facility] Mean Platelet Volume 9.9 7.6 - 12.9 fL 02/16/2024 12:[address] [facility] RDW Standard Deviation 53.2(H) 36.0 - 45.0 fL 02/16/2024 12:[address] [facility] RDW coefficient of variation 15.6(H) 11.4 - 13.8 % 02/16/2024 12:[address] [facility] NRBC% auto 0.0 % 02/16/2024 12:[address] [facility] NRBC Absolute <0.01 <0.01 x10(3)/mc L 02/16/2024 12:[address] [facility] Neutrophil % 67.8 % 02/16/2024 12:[address] [facility] Neutrophil Absolute (ANC) - Automated 4.72 1.70 - 6.10 x10(3)/mc L 02/16/2024 12:[address] [facility] Lymph % 22.2 % 02/16/2024 12:[address] [facility] Lymph Absolute 1.55 0.90 - 3.20 x10(3)/mc L 02/16/2024 12:[address] [facility] Monocyte % 5.6 % 02/16/2024 12:[address] [facility] Monocyte Absolute 0.39 0.30 - 0.90 x10(3)/mc L 02/16/2024 12:[address] [facility] Eos % 3.0 % 02/16/2024 12:11 PM EDT [facility] Eos Absolute 0.21 0.00 - 0.40 x10(3)/mc L 02/16/2024 12:11 PM EDT [facility] Basophil % 1.3 % 02/16/2024 12:11 PM EDT [facility] Baso Absolute 0.09 0.00 - 0.10 x10(3)/mc L 02/16/2024 12:11 PM EDT [facility] Immature Gran % 0.1 % 12:11 PM EDT [facility] Immature Gran Absolute <0.04 0.00 - 0.04 x10(3)/mc L 02/16/2024 12:11 PM EDT [facility] Blood VENOUS BLOOD SPECIMEN / Unknown Venipuncture / Unknown 02/16/2024 11:49 AM EDT 02/16/2024 11:49 AM EDT Albino Bartholomew MD HEMATOLOGY ORDERABLE S [facility] [place] [address] * TSH (02/16/2024 11:49 AM EDT) Only the most recent of3 resultswithin the time period is included. Thyroid Stimulating Hormone 4.13 0.27 - 4.20 mcIU/mL 02/16/2024 1:30 PM EDT [facility] Blood VENOUS BLOOD SPECIMEN / Unknown Venipuncture / Unknown 02/16/2024 11:49 AM EDT 02/16/2024 11:49 AM EDT Albino Bartholomew MD CHEMISTRY ORDERABLES [facility] [place] [address] * T4, free (02/16/2024 11:49 AM EDT) Only the most recent of3 resultswithin the time period is included. Free T4 1.53 0.93 - 1.70 ng/dL 02/16/2024 1:30 PM EDT [facility] Blood VENOUS BLOOD SPECIMEN / Unknown Venipuncture / Unknown 02/16/2024 11:49 AM EDT 02/16/2024 11:49 AM EDT Albino Bartholomew MD CHEMISTRY ORDERABLES [facility] [place] [address] * (ABNORMAL) Comprehensive metabolic panel (02/16/2024 11:49 AM EDT) Only the most recent of3 resultswithin the time period is included. [facility] Glucose 97 65 - 199 mg/dL 02/16/2024 1:30 PM EDT [facility] Comment:Glucose Concentratio n >=200 mg/dL plus symptoms is consistent with Diabetes Mellitus. Blood Urea Nitrogen 30(H) 10 - 20 mg/dL 02/16/2024 1:30 PM EDT [facility] Creatinine 1.68(H) 0.80 - 1.50 mg/dL 02/16/2024 1:30 PM EDT [facility] Sodium 140 135 - 145 mMol/L 02/16/2024 1:30 PM EDT [facility] Potassium 4.5 3.5 - 5.0 mMol/L 02/16/2024 1:30 PM EDT [facility] Chloride 105 98 - 107 mMol/L 02/16/2024 1:30 PM EDT [facility] Carbon Dioxide 27 22 - 31 mMol/L 02/16/2024 1:30 PM EDT [facility] Anion Gap 8 5 - 15 mMol/L 02/16/2024 1:30 PM EDT [facility] Calcium 9.0 8.5 - 10.5 mg/dL 02/16/2024 1:30 PM EDT [facility] Protein, Total 7.0 6.1 - 8.0 g/dL 02/16/2024 1:30 PM EDT [facility] Albumin 4.0 3.2 - 5.2 g/dL 02/16/2024 1:30 PM EDT [facility] Aspartate Aminotransferase 25 <=39 unit/L 02/16/2024 1:30 PM EDT [facility] Alanine Aminotransferase 91(H) 0 - 55 unit/L 02/16/2024 1:30 PM EDT [facility] Alkaline Phosphatase 263(H) 40 - 130 unit/L 02/16/2024 1:30 PM EDT [facility] Bilirubin, Total 0.6 <=1.3 mg/dL 02/16/2024 1:30 PM EDT [facility] Est Glomerular Filtration Rate - Male 44 mL/min/1. 73 m?? 02/16/2024 1:30 PM EDT [facility] Comment: This patient's [...] Fasting Status No 02/16/2024 1:30 PM EDT [facility] Blood VENOUS BLOOD SPECIMEN / Unknown Venipuncture / Unknown 02/16/2024 11:49 AM EDT 02/16/2024 11:49 AM EDT Albino Bartholomew MD CHEMISTRY ORDERABLES [facility] [place] [address] * CT Chest Abdomen Pelvis wo Contrast (02/09/2024 2:55 PM EDT) WORKSTATION ID [id number] RAD Anatomical Region Laterality Modality Abdomen, Pelvis [...] have questions please contact the health healthcare business analyst that requested your imaging first. ? Narrative 02/10/2024 2:23 AM EDT EXAMINATION: CT [...] who have questions please contactthe health healthcare business analyst that requested your imaging first. Mitali Griffiths APRN IMG CT ORDERABLES * Film Library- Storage Only Ultrasound Study (02/03/2024 12:00 AM EDT) Narrative RAD - 02/22/2024 2:52 PM EDT This exam is auto-finalizing. It's purpose is for storage only. Juan Dempsey MD IM FILM LIBRARY ORD ERABLES Performing Organization Address City/[facility]/ZIP Co de Phone Number [place], [place] * Magnesium (12/08/2023 11:56 AM EDT) Magnesium 0.90 0.69 - 1.07 mMol/L 12/08/2023 4:48 PM EDT [facility] Blood VENOUS BLOOD SPECIMEN / Unknown Venipuncture / Unknown 12/08/2023 11:56 AM EDT 12/08/2023 11:56 AM EDT Mitali Griffiths APRN CHEMISTRY ORDERAB LES [facility] [place] [address] * COLONOSCOPY (10/02/2021 3:02 PM EDT) COLONOSCOPY [facility] Endoscopy Procedure Date: 10/02/2021 3:02 PM ? Patient Name: Raymundo Mariscal ? Date of : 1955 ? Age: 66 ? Order #: [id number] ? Instrument Name: [id number] ? Procedure: ? Colonoscopy Indications: ? 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
--- OUTSIDE RECORDS SUMMARY | 2024-03-09 16:51 | XMS_ITS | Encounter Summary ---
Author Organization Formerly [facility] Address [facility] [address] Care Team Providers Care Angle Shear Operator Name Role Phone Juan Dempsey MD Primary Care Provider [phone] Reason for Visit * Reason Comments Follow-up Encounter Details Date Type Department Care Team (Late st Contact Info) Description 12/08/2023 1:30 PM EDT Office Visit Hematology [place] [address] Mitali Griffiths APRN [facility] [address] [place] [address] Renal cell carcinoma of left kidney; Medication [...] note were not included. Medical Oncology: Genitourinary [facility] [place] [address] [phone] HPI: Mr. Tenorio is a 68 y.o. [...] skin. 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 He notices more leg [...] Guided Biopsy Lung 02/04/2022 Rich Baldwin MD [facility] RAD CT SCAN HERNIA REPAIR Left inguinal PRO COLONOSCOPY, DIAGNOSTIC N/A 10/02/2021 COLONOSCOPY, DIAGNOSTIC performed by Jordyn Merino MD at [facility] ENDOSCOPY PRO CYSTOURETHROSCOPY N/A 06/23/2021 CYSTO, CYSTOURETHROSCOPY, DIAGNOSTIC (WRVU 2.23) performed by Jordan Hou MD at [facility] MAIN OR PRO REMV KIDNEY, RADICAL Left 06/23/2021 @NEPHRECTOMY, RADICAL W\REG LYMPHADENECTOMY &\OR VENA CAVA THROMBECTOMY (WRVU 23.81) performed by Jordan Hou MD at [facility] MAIN OR Family History Problem [...] 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 Pt prefers to get labs at [facility]. We'll send orders and I'll ask our thrasher feeder to f/u on results. Advised pt to [...] he will continue his f/u with Dr. Huo. Clinically, he is doing very well and [...] Cabometyx with minimal side effects. Follows with automatic developer Dr. Pringle, with plans to taper him [...] additional questions or concerns. Mitali Griffiths MSN, STRINGER UP SOLDERING MACHINE Medical Oncology Pager [phone] [facility] documented in this encounter Plan of Treatment Upcoming Encounters Date Type Department Care Team (Late st Contact Info) Description 03/29/2024 10:30 AM EST Laboratory Appointment Lab at [facility] Hematology Oncology [address] [place] [address] 03/29/2024 12:[address] [place] [place] [address] Albino Bartholomew MD [facility] [address] [place] [address] 04/05/2024 10:00 AM EST Office Visit Hematology [place] [address] Albino Bartholomew MD [facility] [address] [place] [address] documented as of this encounter Goals Goal Patient Goal Type Associated Problems Recent Progress Patient-Stated? Author Patient's specific desired goal: Patient Facing Action Plan Sharda Lozano, [facility] Note: Remain 95% or more adherent to oral chemotherapy over the next year as measured by refill history documented as of this encounter Results * Magnesium (12/08/2023 11:56 AM EDT) Magnesium 0.90 0.69 - 1.07 mMol/L 12/08/2023 4:48 PM EDT [facility] Blood VENOUS BLOOD SPECIMEN / Unknown Venipuncture / Unknown 12/08/2023 11:56 AM EDT 12/08/2023 11:56 AM EDT Mitali Griffiths APRN CHEMISTRY ORDERAB LES Performing Organization Address City/State/[place] Co de Phone Number [facility] [place] [address] documented in this encounter Visit Diagnoses Diagnosis [...] hepatitis documented in this encounter Care Teams Angle Shear Operator Relationship Specialty Start Date End Date Juan Dempsey MD [address] [place] [address] PCP - General Emergency Medicine 08/20/21 documented as of this encounter
--- OUTSIDE RECORDS SUMMARY | 2024-03-09 16:51 | XMS_ITS | Encounter Summary ---
Author Organization [facility] Address [facility] [place] [address] Care Team Providers Care Usps Letter Carrier Name Role Phone Juan Dempsey MD Primary Care Provider [phone] Encounter Details Date Type Department Care Team (Latest Contact Info) Description 12/10/2023 Specialty [place] [phone] Sharda Lee, [facility] Refill Coordination - 28 day [...] this encounter Progress Notes * Sharda Lee [facility] - 12/10/2023 4:06 PM EDT Clinical Management Plan: Refill Specialty Pharmacy Consultation; Sharda Lee [facility] Comprehensive Medication Management (CMM) Mr. [...] to [facility] med list) No Review Flowsheet 12/10/2023 5:55 [...] AM EST Laboratory Appointment Lab at [facility] Hematology Oncology [address] [place] [address] 03/29/2024 12:[address] [place] [place] [address] Albino Bartholomew MD [facility] [address] [place] [address] 04/05/2024 10:00 AM EST Office Visit [place]ematology [place] [address] Albino Bartholomew MD [facility] [address] [place] [address] documented as of this encounter Goals Goal Patient Goal Type Associated Problems Recent Progress Patient-Stated? Author Patient's specific desired goal: Patient Facing Action Plan No Sharda Lee RPH Note: Remain 95% or more adherent to oral chemotherapy over the next year as measured by refill history documented as of this encounter Visit Diagnoses Not on filedocumented in this encounter Care Teams Usps Letter Carrier Relationship Specialty Start Date End Date Juan Dempsey MD [address] [place] [address] PCP - General Emergency Medicine 08/20/21 documented as of this encounter
--- OUTSIDE RECORDS SUMMARY | 2024-03-09 16:51 | XMS_ITS | Encounter Summary ---
Author Organization [facility] [place] [address] Care Team Providers Care Numerical Control Machine Operator Name Role Phone Juan Dempsey MD Primary Care Provider [phone] Encounter Details Date Type Department Care Team (Latest Contact Info) Description 12/08/2023 11:49 AM EDT - 12/08/2023 11:59 PM EDT Hospital Encounter Hematology [place] [phone] Metastatic renal cell carcinoma to lung, unspecified [...] [facility] [address] [place] [address] 03/29/2024 12:[address] [place] [address] Albino Bartholomew MD [facility] [address] [place] [address] 04/05/2024 10:00 AM EST Office Visit Hematology [place] [address] Albino Bartholomew MD [facility] [address] [place] [address] documented as of this encounter Procedures Procedure [...] CHEMISTRY ORDERAB LES [facility] [address] * T4, free (12/08/2023 11:56 AM EDT) Free T4 1.58 0.93 - 1.70 ng/dL 12/08/2023 12:43 PM EDT [facility] Blood VENOUS BLOOD SPECIMEN / Unknown Venipuncture / Unknown 12/08/2023 11:56 AM EDT 12/08/2023 11:56 AM EDT Albino Bartholomew MD CHEMISTRY ORDERABLES [facility] [place] [address] * TSH (12/08/2023 11:56 AM EDT) Thyroid Stimulating Hormone 3.07 0.27 - 4.20 mcIU/mL 12/08/2023 12:43 PM EDT [facility] Blood VENOUS BLOOD SPECIMEN / Unknown Venipuncture / Unknown 12/08/2023 11:56 AM EDT 12/08/2023 11:56 AM EDT Albino Bartholomew MD CHEMISTRY ORDERABLES [facility] [address] * (ABNORMAL) Comprehensive metabolic panel (12/08/2023 11:56 [...] Aminotransferase 23 <=39 unit/L 12/08/2023 12:43 PM [facility] Alanine Aminotransferase 29 0 - 55 unit/L 12/08/2023 12:43 PM [facility] Alkaline Phosphatase 153(H) 40 - 130 unit/L 12/08/2023 12:43 PM [facility] Bilirubin, Total 0.3 <=1.3 mg/dL 12/08/2023 12:43 PM [facility] Est Glomerular Filtration Rate - Male 50 mL/min/1. 73 m?? 12/08/2023 12:43 PM [facility] Comment: This patient's estimated GFR [...] Foundation Fasting Status No 12/08/2023 12:43 PM [facility] Blood VENOUS BLOOD SPECIMEN / Unknown Venipuncture / Unknown 12/08/2023 11:56 AM EDT 12/08/2023 11:56 AM EDT Albino Bartholomew MD CHEMISTRY ORDERABLES [facility] [address] * (ABNORMAL) CBC (with Diff) (12/08/2023 11:56 AM EDT) White Blood Cell 8.63 4.00 - 9.50 x10(3)/mc L 12/08/2023 12:11 PM EDT [facility] Red Blood Cell 4.97 4.58 - 5.54 x10(6)/mc L 12/08/2023 12:11 PM [facility] Hemoglobin 14.6 13.7 - 16.5 g/dL 12/08/2023 12:11 PM [facility] Hematocrit 45.3 40.5 - 48.5 % 12/08/2023 12:11 PM [facility] Mean Cell Volume 91.1 82.9 - 93.1 fL 12/08/2023 12:11 PM [facility] Mean Cell Hemoglobin 29.4 27.5 - 32.1 pg 12/08/2023 12:11 PM [facility] Mean Cell Hemoglobin Concentration 32.2 32.0 - 35.7 g/dL 12/08/2023 12:11 PM [facility] Platelet 202 145 - 357 x10(3)/mc L 12/08/2023 12:11 PM [facility] Mean Platelet Volume 9.7 7.6 - 12.9 fL 12/08/2023 12:11 PM [facility] RDW Standard Deviation 48.9(H) 36.0 - 45.0 fL 12/08/2023 12:11 PM [facility] RDW coefficient of variation 14.7(H) 11.4 - 13.8 % 12/08/2023 12:11 PM [facility] NRBC% auto 0.0 % 12/08/2023 12:11 PM [facility] NRBC Absolute 0.00 0.00 - 0.00 x10(3)/mc L 12/08/2023 12:11 PM [facility] Neutrophil % 69.0 % 12/08/2023 12:11 PM [facility] Neutrophil Absolute (ANC) - Automated 5.96 1.70 - 6.10 x10(3)/mc L 12/08/2023 12:11 PM [facility] Lymph % 20.5 % 12/08/2023 [...] HEMATOLOGY ORDERABLE S [facility] [address] documented in this encounter Visit Diagnoses Diagnosis Metastatic renal cell carcinoma to lung, unspecified laterality High risk medication use Encounter for long-term (current) use of other medications Abnormal thyroid function test Nonspecific abnormal results of thyroid function study Renal cell carcinoma of left kidney documented in this encounter Care Teams Numerical Control Machine Operator Relationship Specialty Start Date End Date Juan Dempsey MD [address] [place] [address] PCP - General Emergency Medicine 08/20/21 documented as of this encounter
--- OUTSIDE RECORDS SUMMARY | 2024-03-09 16:51 | XMS_ITS | Encounter Summary ---
Author Organization [facility] [place] [address] Care Team Providers Care Architectural Practice Manager Name Role Phone Juan Dempsey MD Primary Care Provider [phone] Encounter Details Date Type Department Care Team (Latest Contact Info) Description 02/16/2024 12:15 PM EDT Laboratory Appointment Lab [place] [facility] [place] [address] [place] [address] Metastatic renal cell carcinoma to lung, [...] [facility] [place] [address] [place] [address] 03/29/2024 12:[address] [place] [address] Albino Bartholomew MD [facility] [address] [place] [address] 04/05/2024 10:00 AM EST Office Visit Hematology [place] [address] Albino Bartholomew MD [facility] [address] [place] [address] documented as of this encounter Goals Goal Patient Goal Type Associated Problems Recent Progress Patient-Stated? Author Patient's specific desired goal: Patient Facing Action Plan Sharda Lozano, [facility] Note: Remain 95% [...] - 1.70 ng/dL 02/16/2024 1:30 PM EDT [facility] Blood VENOUS BLOOD SPECIMEN / Unknown Venipuncture / Unknown 02/16/2024 11:49 AM EDT 02/16/2024 11:49 AM EDT Albino Bartholomew MD CHEMISTRY ORDERABLES Performing Organization Address City/[facility]/ZIP Co de Phone Number [facility] [place] [address] * TSH (02/16/2024 11:49 AM EDT) Thyroid Stimulating Hormone 4.13 0.27 - 4.20 mcIU/mL 02/16/2024 1:30 PM EDT [facility] Blood VENOUS BLOOD SPECIMEN / Unknown Venipuncture / Unknown 02/16/2024 11:49 AM EDT 02/16/2024 11:49 AM EDT Albino Bartholomew MD CHEMISTRY ORDERABLES [facility] [place] [address] * (ABNORMAL) Comprehensive metabolic panel (02/16/2024 11:49 AM EDT) Glucose 97 65 - 199 mg/dL 02/16/2024 1:30 PM [facility] Comment:Glucose Concentratio n >=200 mg/dL plus symptoms is consistent with Diabetes Mellitus. Blood Urea Nitrogen 30(H) 10 - 20 mg/dL 02/16/2024 1:30 PM T [facility] Creatinine 1.68(H) 0.80 - 1.50 mg/dL 02/16/2024 1:30 PM [facility] Sodium 140 135 - 145 mMol/L 02/16/2024 1:30 PM [facility] Potassium 4.5 3.5 - 5.0 mMol/L 02/16/2024 1:30 PM [facility] Chloride 105 98 - 107 mMol/L 02/16/2024 1:30 PM [facility] Carbon Dioxide 27 22 - 31 mMol/L 02/16/2024 1:30 PM [facility] Anion Gap 8 5 - 15 mMol/L 02/16/2024 1:30 PM [facility] Calcium 9.0 8.5 - 10.5 mg/dL 02/16/2024 1:30 PM [facility] Protein, Total 7.0 6.1 - 8.0 g/dL 02/16/2024 1:30 PM [facility] Albumin 4.0 3.2 - 5.2 g/dL 02/16/2024 1:30 PM [facility] Aspartate Aminotransferase 25 <=39 unit/L 02/16/2024 1:30 PM [facility] Alanine Aminotransferase 91(H) 0 - 55 unit/L 02/16/2024 1:30 PM [facility] Alkaline Phosphatase 263(H) 40 - 130 unit/L 02/16/2024 1:30 PM [facility] Bilirubin, Total 0.6 <=1.3 mg/dL 02/16/2024 1:30 PM EDT [facility] Est Glomerular Filtration Rate - Male 44 mL/min/1. 73 m?? 02/16/2024 1:30 PM EDT [facility] Comment: This patient's estimated GFR [...] Fasting Status No 02/16/2024 1:30 PM EDT [facility] Blood VENOUS BLOOD SPECIMEN / Unknown Venipuncture / Unknown 02/16/2024 11:49 AM EDT 02/16/2024 11:49 AM EDT Albino Bartholomew MD CHEMISTRY ORDERABLES [facility] [place] [address] * (ABNORMAL) CBC (with Diff) (02/16/2024 11:49 AM EDT) White Blood Cell 6.97 4.00 - 9.50 x10(3)/mc L 02/16/2024 12:11 PM EDT [facility] Red Blood Cell 4.73 4.58 - 5.54 x10(6)/mc L 02/16/2024 12:11 PM EDT [facility] Hemoglobin 14.0 13.7 - 16.5 g/dL 02/16/2024 12:11 PM EDT [facility] Hematocrit 43.6 40.5 - 48.5 % 02/16/2024 12:11 PM [facility] Mean Cell Volume 92.2 82.9 - 93.1 fL 02/16/2024 12:11 PM [facility] Mean Cell Hemoglobin 29.6 27.5 - 32.1 pg 02/16/2024 12:11 PM [facility] Mean Cell Hemoglobin Concentration 32.1 32.0 - 35.7 g/dL 02/16/2024 12:11 PM [facility] Platelet 208 145 - 357 x10(3)/mc L 02/16/2024 12:11 PM [facility] Mean Platelet Volume 9.9 7.6 - 12.9 fL 02/16/2024 12:11 PM [facility] RDW Standard Deviation 53.2(H) 36.0 - 45.0 fL 02/16/2024 12:11 PM [facility] RDW coefficient of variation 15.6(H) 11.4 - 13.8 % 02/16/2024 12:11 PM [facility] NRBC% auto 0.0 % 02/16/2024 12:11 PM [facility] NRBC Absolute <0.01 <0.01 x10(3)/mc L 02/16/2024 12:11 PM [facility] Neutrophil % 67.8 % 02/16/2024 12:11 PM [facility] Neutrophil Absolute (ANC) - Automated 4.72 1.70 - 6.10 x10(3)/mc L 02/16/2024 12:11 PM [facility] Lymph % 22.2 % 02/16/2024 12:11 PM [facility] Lymph Absolute 1.55 0.90 - 3.20 x10(3)/mc L 02/16/2024 12:11 PM [facility] Monocyte % 5.6 % 02/16/2024 12:11 PM [facility] Monocyte Absolute 0.39 0.30 - 0.90 x10(3)/mc L 02/16/2024 12:11 PM EDT [facility] Eos % 3.0 % 02/16/2024 12:11 PM EDT [facility] Eos Absolute 0.21 0.00 - 0.40 x10(3)/mc L 02/16/2024 12:11 PM EDT [facility] Basophil % 1.3 % 02/16/2024 12:11 PM EDT [facility] Baso Absolute 0.09 0.00 - 0.10 x10(3)/mc L 02/16/2024 12:11 PM EDT [facility] Immature Gran % 0.1 % 12:11 PM EDT [facility] Immature Gran Absolute <0.04 0.00 - 0.04 x10(3)/mc L 02/16/2024 12:11 PM EDT [facility] Blood VENOUS BLOOD SPECIMEN / Unknown Venipuncture / Unknown 02/16/2024 11:49 AM EDT 02/16/2024 11:49 AM EDT Albino Bartholomew MD HEMATOLOGY ORDERABLE S Performing Organization Address City/State/[facility] Co de Phone Number [facility] [place] [address] documented in this encounter Visit Diagnoses Diagnosis Metastatic renal cell carcinoma to lung, unspecified laterality High risk medication use Encounter for long-term (current) use of other medications Abnormal thyroid function test Nonspecific abnormal results of thyroid function study Renal cell carcinoma of left kidney documented in this encounter Care Teams Architectural Practice Manager Relationship Specialty Start Date End Date Juan Dempsey MD [address] [place] [address] PCP - General Emergency Medicine 08/20/21 documented as of this encounter
--- OUTSIDE RECORDS SUMMARY | 2024-03-09 16:51 | XMS_ITS | Encounter Summary ---
Author Organization [facility] Address [facility] [place] [address] Care Team Providers Care Waiter/Waitress Cafeteria Name Role Phone Juan Dempsey MD Primary Care Provider [phone] Encounter Details Date Type Department Care Team (Late st Contact Info) Description 01/27/2024 Telephone Dermatology at [facility] [address] [place] [phone] Oli Winter MD [address] [facility] [place] [address] Social History Tobacco Use Types Packs/Day Years [...] he is being treated for? Please advise [phone]. documented in this encounter Plan of Treatment Upcoming Encounters Date Type Department Care Team (Late st Contact Info) Description 03/29/2024 10:30 AM EST Laboratory Appointment Lab [place] [facility] [place] [address] [place] [address] 03/29/2024 12:[address] [place] [address] Albino Bartholomew MD [facility] HEMATOLOGY [place] [address] 04/05/2024 10:00 AM EST Office Visit Hematology [place] [phone] Albino Bartholomew MD [facility] DR HEMATOLOGY [place] [address] documented as of this encounter Goals Goal [...] on filedocumented in this encounter Care Teams Waiter/Waitress Cafeteria Relationship Specialty Start Date End Date Juan Dempsey MD [address] [place] [address] PCP - General Emergency Medicine 08/20/21 documented as of this encounter
--- OUTSIDE RECORDS SUMMARY | 2024-03-09 16:51 | XMS_ITS | Encounter Summary ---
Author Organization [facility] Address [facility] [place] [address] Care Team Providers Care Scheduling Analyst Name Role Phone Juan Dempsey MD Primary Care Provider [phone] Encounter Details Date Type Department Care Team (Late st Contact Info) Description 03/07/2024 11:30 AM EST Office [place] [phone] Ana Pringle MD [facility] [place] [address] Drug induced liver disease Social History Tobacco [...] 80 (H) (E) 28 21 35 (E) [facility] Reference Range & Units 03/18/22 11:44 04/01/22 [...] (H) 266 (E) 236 (E) 160 (H) [facility] Reference Range & Units 12/08/23 11:56 02/09/24 [...] Pringle MD Section of Gastroenterology & Hepatology [address] [place], [place] [id number] Time spent reviewing records prior to this [...] [facility] Hematology Oncology [address] [place] [address] 03/29/2024 12:[address] [place] [address] Albino Bartholomew MD [facility] DR [place] [address] 04/05/2024 10:00 AM EST Office Visit Hematology [place] [address] Albino Bartholomew MD [facility] [address] [place] [address] documented as of this encounter Goals Goal [...] disease documented in this encounter Care Teams Scheduling Analyst Relationship Specialty Start Date End Date Juan Dempsey MD [address] [place] [address] PCP - General Emergency Medicine 08/20/21 documented as of this encounter
--- OUTSIDE RECORDS SUMMARY | 2024-03-09 16:51 | XMS_ITS | Encounter Summary ---
Author Organization [facility] Address [facility] [place] [address] Care Team Providers Care Biomass Facilitator Name Role Phone Juan Dempsey MD Primary Care Provider [phone] Encounter Details Date Type Department Care Team (Late st Contact Info) Description 02/04/2024 Telephone Hematology [place] [address] Padmini Mckeon RN Social History [...] encounter Miscellaneous Notes * Telephone Encounter - Padmini Mckeon RN - 02/04/2024 3:25 PM EDT Pt seen in [facility] ED on 02/02 for abd pain. US [...] 10:30 AM EST Laboratory Appointment Lab at [facility] [place] Hematology Oncology [address] [place] [address] 03/29/2024 12:[address] [place] [address] Albino Bartholomew MD [facility] DR [place] [address] 04/05/2024 10:00 AM EST Office Visit Hematology [place] [phone] Albino Bartholomew MD [facility] DR [place] [address] documented as of this encounter Goals Goal Patient Goal Type Associated Problems Recent Progress Patient-Stated? Author Patient's specific desired goal: Patient Facing Action Plan No Sharda Lee, [facility] Note: Remain 95% or more adherent to oral chemotherapy over the next year as measured by refill history documented as of this encounter Visit Diagnoses Not on filedocumented in this encounter Care Teams Biomass Facilitator Relationship Specialty Start Date End Date Juan Dempsey MD [address] [place] [address] PCP - General Emergency Medicine 08/20/21 documented as of this encounter
--- OUTSIDE RECORDS SUMMARY | 2024-03-09 16:51 | XMS_ITS | Encounter Summary ---
Author Organization [facility] Address [facility] [place] [address] Care Team Providers Care Boiler Out Name Role Phone Juan Dempsey MD Primary Care Provider [phone] Encounter Details Date Type Department Care Team (Late st Contact Info) Description 01/31/[address] [place] [address] Suzy Suarze LPN Social History Tobacco Use Types Packs/Day [...] [facility] [place] [address] [place] [address] 03/29/2024 12:[address] [place] [address] Albino Bartholomew MD [facility] [place] [address] 04/05/2024 10:00 AM EST Office Visit Hematology [place] [address] Albino Bartholomew MD [facility] DR [place] [address] documented as of this encounter Goals Goal Patient Goal Type Associated Problems Recent Progress Patient-Stated? Author Patient's specific desired goal: Patient Facing Action Plan No Sharda Lee, [facility] Note: Remain 95% or more adherent to oral chemotherapy over the next year as measured by refill history documented as of this encounter Visit Diagnoses Not on filedocumented in this encounter Care Teams Boiler Out Relationship Specialty Start Date End Date Juan Dempsey MD [address] [place] [address] PCP - General Emergency Medicine 08/20/21 documented as of this encounter
--- OUTSIDE RECORDS SUMMARY | 2024-03-09 16:51 | XMS_ITS | Encounter Summary ---
Author Organization [facility] Address [facility] [place] [address] Care Team Providers Care Special Shopper Name Role Phone Juan Dempsey MD Primary Care Provider [phone] Encounter Details Date Type Department Care Team [...] [facility] [place] Hematology Oncology [address] [place] [address] 03/29/2024 12:[address] [place] [place] [address] Albino Bartholomew MD [facility] DR HEMATOLOGY AND ONCOLOGY [address] 04/05/2024 10:00 AM EST Office Visit [place]ematology [place] [address] Albino Bartholomew MD [facility] DR HEMATOLOGY AND ONCOLOGY [address] documented as of this encounter Visit Diagnoses Not on filedocumented in this encounter Care Teams Special Shopper Relationship Specialty Start Date End Date Juan Dempsey MD [address] [place] [address] PCP - General Emergency Medicine 08/20/21 documented as of this encounter
--- OUTSIDE RECORDS SUMMARY | 2024-03-09 16:51 | XMS_ITS | Encounter Summary ---
Author Organization [facility] Address [facility] [place] [address] Care Team Providers Care Scrap Preparation Supervisor Name Role Phone Juan Dempsey MD Primary Care Provider [phone] Encounter Details Date Type Department Care Team [...] [facility] [place] Hematology Oncology [address] [place] [address] 03/29/2024 12:[address] [place] [place] [phone] [facility] DR [place] [address] 04/05/2024 10:00 AM EST Office Visit [place]ology [place] [address] [facility] DR [place] [address] documented as of this encounter Goals Goal Patient Goal Type Associated Problems Recent Progress Patient-Stated? Author Patient's specific desired goal: Patient Facing Action Plan No Sharda Lee, [facility] Note: Remain 95% or more adherent to oral chemotherapy over the next year as measured by refill history documented as of this encounter Visit Diagnoses Not on filedocumented in this encounter Care Teams Scrap Preparation Supervisor Relationship Specialty Start Date End Date Juan Dempsey MD [address] [place] [address] PCP - General Emergency Medicine 08/20/21 documented as of this encounter
--- OUTSIDE RECORDS SUMMARY | 2024-03-09 16:51 | XMS_ITS | Encounter Summary ---
Author Organization [facility] Address [facility] [place] [address] Care Team Providers Care Industrial Staff Nurse Name Role Phone Juan Dempsey MD Primary Care Provider [phone] Encounter Details Date Type Department Care Team [...] 10:30 AM EST Laboratory Appointment Lab at [facility] [place] Oncology [address] [place] [address] 03/29/2024 12:[address] [place] [address] Albino Bartholomew MD [facility] DR HEMATOLOGY [place] [address] 04/05/2024 10:00 AM EST Office Visit Hematology [place] [address] Albino Bartholomew MD [facility] DR HEMATOLOGY [place] [address] documented as of this encounter Goals Goal Patient Goal Type Associated Problems Recent Progress Patient-Stated? Author Patient's specific desired goal: Patient Facing Action Plan No Sharda Lee, [facility] Note: Remain 95% or more adherent to oral chemotherapy over the next year as measured by refill history documented as of this encounter Visit Diagnoses Not on filedocumented in this encounter Care Teams Industrial Staff Nurse Relationship Specialty Start Date End Date Juan Dempsey MD [address] [place] [address] PCP - General Emergency Medicine 08/20/21 documented as of this encounter
--- OUTSIDE RECORDS SUMMARY | 2024-03-09 16:51 | XMS_ITS | Encounter Summary ---
Author Organization [facility] Address [facility] [place] [address] Care Team Providers Care Teaseler Name Role Phone Juan Dempsey MD Primary Care Provider [phone] Reason for Visit * Reason Onset Date Comments Medication Refill 11/02/2023 Encounter Details Date Type Department Care Team (Late st Contact Info) Description 11/02/2023 Refill Hematology [place] [address] HEMATOLOGY AND ONCOLOGY [place], [place] [id number] Social History Tobacco Use Types Packs/Day Years [...] [facility] [facility] [place] On[place] [address] [place] [address] 03/29/2024 12:[address] [place] [address] Albino Bartholomew MD [facility] DR [place] [address] 04/05/2024 10:00 AM EST Office Visit Hematology [place] [address] Albino Bartholomew MD [facility] DR [place] [address] documented as of this encounter Visit Diagnoses Not on filedocumented in this encounter Care Teams Teaseler Relationship Specialty Start Date End Date Juan Dempsey MD [address] [place] [address] PCP - General Emergency Medicine 08/20/21 documented as of this encounter
--- OUTSIDE RECORDS SUMMARY | 2024-03-09 16:51 | XMS_ITS | Encounter Summary ---
Author Organization [facility] [place] [address] Care Team Providers Care Dye Stand Loader Name Role Phone Juan Dempsey MD Primary Care Provider [phone] Reason for Visit * Reason Onset Date Comments Medication Refill 11/15/2023 Encounter Details Date Type Department Care Team (Late st Contact Info) Description 11/15/2023 Refill [place] [address] [address] HEMATOLOGY AND ONCOLOGY [place], [place] [phone] Social History Tobacco Use Types Packs/Day Years [...] [facility] [place] [address] [place] [address] 03/29/2024 12:[address] [place] [address] Albino Bartholomew MD [facility] HEMATOLOGY AND ONCOLOGY [address] 04/05/2024 10:00 AM EST Office Visit Hematology [place] [address] Albino Bartholomew MD [facility] DR HEMATOLOGY AND ONCOLOGY [address] documented as of this encounter Visit Diagnoses Not on filedocumented in this encounter Care Teams Dye Stand Loader Relationship Specialty Start Date End Date Juan Dempsey MD [address] [place] [address] PCP - General Emergency Medicine 08/20/21 documented as of this encounter
--- OUTSIDE RECORDS SUMMARY | 2024-03-09 16:51 | XMS_ITS | Encounter Summary ---
Author Organization [facility] Address [facility] [place] [address] Care Team Providers Care Toxicologist Name Role Phone Juan Dempsey MD Primary Care Provider [phone] Encounter Details Date Type Department Care Team (Late st Contact Info) Description 02/10/2024 Orders Only Hematology [place] [address] Albino Bartholomew MD [facility] DR [place] [address] Renal cell carcinoma of left kidney; High [...] 10:30 AM EST Laboratory Appointment Lab at [facility] [place] Hematology Oncology [address] [place] [address] 03/29/2024 12:[address] [place] [address] Albino Bartholomew MD [facility] DR [place] [address] 04/05/2024 10:00 AM EST Office Visit Hematology [place] [address] Albino Bartholomew MD [facility] DR [place] [address] documented as of this encounter Goals Goal Patient Goal Type Associated Problems Recent Progress Patient-Stated? Author Patient's specific desired goal: Patient Facing Action Plan No Sharda Lee, [facility] Note: Remain 95% or more adherent to oral chemotherapy over the next year as measured by refill history documented as of this encounter Visit Diagnoses Diagnosis Renal cell carcinoma of left kidney High risk medication use Encounter for long-term (current) use of other medications Abnormal thyroid function test Nonspecific abnormal results of thyroid function study documented in this encounter Care Teams Toxicologist Relationship Specialty Start Date End Date Juan Dempsey MD [address] [place] [address] PCP - General Emergency Medicine 08/20/21 documented as of this encounter
--- OUTSIDE RECORDS SUMMARY | 2024-03-09 16:51 | XMS_ITS | Encounter Summary ---
Author Organization [facility] Address [facility] [place] [address] Care Team Providers Care Administrative Project Coordinator Name Role Phone Juan Dempsey MD Primary Care Provider [phone] Encounter Details Date Type Department Care Team (Latest Contact Info) Description 12/13/2023 Specialty [place] [phone] Sharda Lee, [facility] Refill Coordination - 28 day [...] Progress Notes * Sharda Lee, [facility] - 12/13/2023 2:28 PM EDT [...] from the cancer center from dieticians to psychosocial rehabilitation counselor. Administration, allergies, dosage, safe storage awayfrom pets [...] pharmacist Yes Medication reconciliation discrepancies (compared to [facility] med list) No Pharmacist follow-up needed No [...] [facility] is providing recommendations (summary at top of [...] [facility] Hematology Oncology [address] [place] [address] 03/29/2024 12:[address] [place] [address] Albino Bartholomew MD [facility] DR HEMATOLOGY [place] [address] 04/05/2024 10:00 AM EST Office Visit Hematology [place] [address] Albino Bartholomew MD [facility] DR HEMATOLOGY [place] [address] documented as of this encounter Goals Goal [...] kidney documented in this encounter Care Teams Administrative Project Coordinator Relationship Specialty Start Date End Date Juan Dempsey MD [address] [place] [address] PCP - General Emergency Medicine 08/20/21 documented as of this encounter
--- OUTSIDE RECORDS SUMMARY | 2024-03-09 16:51 | XMS_ITS | Encounter Summary ---
Author Organization [facility] Address [facility] [place] [address] Care Team Providers Care Pump Oiler Name Role Phone Juan Dempsey MD Primary Care Provider [phone] Reason for Visit * Diagnostic Test (Routine) - Closed Specialty Diagnoses / Procedures Referred By Burak mcnair Referred To Contact Radiology Diagnoses Renal cell carcinoma of left kidney Procedures CT Chest Abdomen Pelvis wo Contrast CT Chest Abdomen Pelvis w Contrast (Generic) Mitali Griffiths APRN [facility] [place] [address] [facility] [place] [address] Referral ID Status Reason Start Date Expiration Date V isits Requested Visits Authorized [id number] Closed Specialty Service Requested 12/08/2023 06/09/2025 1 1 Encounter Details Date Type Department Care Team (Late st Contact Info) Description 02/09/2024 11:47 AM EDT - 02/09/2024 11:59 PM EDT Hospital [place] [address] Mitali Griffiths APRN [facility] [place] [address] Renal cell carcinoma of left [...] [facility] Hemat[facility] Oncology [address] [place] [address] 03/29/2024 12:[address] [place] [address] Albino Bartholomew MD [facility] DR [place] [address] 04/05/2024 10:00 AM EST Office Visit [place]ematology [place] [address] Albino Bartholomew MD [facility] [place] [address] documented as of this encounter Goals Goal [...] Pelvis wo Contrast (02/09/2024 2:55 PM EDT) [employer] WORKSTATION ID [id number] RAD Anatomical Region Laterality Modality Abdomen, Pelvis [...] have questions please contact the health home care manager rn that requested your imaging first. ? Narrative [...] who have questions please contactthe health home care manager rn that requested your imaging first. Mitali Griffiths [...] mLs documented in this encounter Care Teams Pump Oiler Relationship Specialty Start Date End Date Juan Dempsey MD [address] [place] [address] PCP - General Emergency Medicine 08/20/21 documented as of this encounter
--- OUTSIDE RECORDS SUMMARY | 2024-03-09 16:51 | XMS_ITS | Encounter Summary ---
Author Organization [facility] Address [facility] [place] [address] Care Team Providers Care Fermentation Scientist Name Role Phone Juan Dempsey MD Primary Care Provider [phone] Reason for Visit * Reason Onset Date Comments Medication Refill 01/18/2024 Encounter Details Date Type Department Care Team (Late st Contact Info) Description 01/18/2024 Refill Hematology [place] [address] HEMATOLOGY AND ONCOLOGY [place], [place] [phone] Hypokalemia Social History Tobacco Use Types Packs/Day [...] 01/21/2024 9:29 AM EDT Received request via [facility] for refill of Klor-Con. Latest Reference [...] [facility] Hematology Oncology [address] [place] [address] 03/29/2024 12:[address] [place] [address] Albino Bartholomew MD [facility] DR [place]ATOLOG[place] [address] 04/05/2024 10:00 AM EST Office Visit Hematology [place] [address] Albino Bartholomew MD [facility] DR [place] [address] documented as of this encounter Goals Goal Patient Goal Type Associated Problems Recent Progress Patient-Stated? Author Patient's specific desired goal: Patient Facing Action Plan Sharda Lozano, [facility] Note: Remain 95% or more adherent to oral chemotherapy over the next year as measured by refill history documented as of this encounter Visit Diagnoses Diagnosis Hypokalemia Hypopotassemia documented in this encounter Care Teams Fermentation Scientist Relationship Specialty Start Date End Date Juan Dempsey MD [address] [place] [address] PCP - General Emergency Medicine 08/20/21 documented as of this encounter
--- OUTSIDE RECORDS SUMMARY | 2024-03-09 16:51 | XMS_ITS | Encounter Summary ---
Author Organization [facility] Address [facility] [place] [address] Care Team Providers Care Mobile Equipment Servicer Name Role Phone Juan Dempsey MD Primary Care Provider [phone] Encounter Details Date Type Department Care Team (Latest Contact Info) Description 01/17/2024 Specialty [place] [phone] Jonas Vásquez, [employer] Refill Coordination - 28 day recurrence (cabozantinib [...] Standard Peanut Medication Reconciliation Discrepancies (compared to [facility] med list) No Review Flowsheet 01/17/2024 9:08 [...] [facility] Hematology Oncology [address] [place] [address] 03/29/2024 12:[address] [place] [address] Albino Bartholomew MD [facility] DR [place] [address] 04/05/2024 10:00 AM EST Office Visit Hematology [place] [address] Albino Bartholomew MD [facility] DR [place] [address] documented as of this encounter Goals Goal Patient Goal Type Associated Problems Recent Progress Patient-Stated? Author Patient's specific desired goal: Patient Facing Action Plan No Sharda Lee, [facility] Note: Remain 95% or more adherent to oral chemotherapy over the next year as measured by refill history documented as of this encounter Visit Diagnoses Not on filedocumented in this encounter Care Teams Mobile Equipment Servicer Relationship Specialty Start Date End Date Juan Dempsey MD [address] [place] [address] PCP - General Emergency Medicine 08/20/21 documented as of this encounter
--- OUTSIDE RECORDS SUMMARY | 2024-03-09 16:51 | XMS_ITS | Encounter Summary ---
Author Organization [facility] Address [facility] [place] [address] Care Team Providers Care Wet Char Conveyor Tender Name Role Phone Juan Dempsey MD [...] 10:30 AM EST Laboratory Appointment Lab at [facility] Hematology Oncology [address] [place] [address] 03/29/2024 12:[address] [place] [place] [address] Albino Bartholomew MD [facility] DR [place] [address] 04/05/2024 10:00 AM EST Office Visit [place]ology [place] [address] Albino Bartholomew MD [facility] DR [place] [address] documented as of this encounter Goals Goal [...] on filedocumented in this encounter Care Teams Wet Char Conveyor Tender Relationship Specialty Start Date End Date Juan Dempsey MD [address] [place] [address] PCP - General Emergency Medicine 08/20/21 documented as of this encounter
--- OUTSIDE RECORDS SUMMARY | 2024-03-09 16:51 | XMS_ITS | Encounter Summary ---
Author Organization [facility] Address [facility] [place] [address] Care Team Providers Care Financial Administrator Name Role Phone Juan Dempsey MD Primary Care Provider [phone] Encounter Details Date Type Department Care Team [...] [facility] Hematology Oncology [address] [place] [address] 03/29/2024 12:[address] [place] [address] Albino Bartholomew MD [facility] [address] [place] [address] 04/05/2024 10:00 AM EST Office Visit Hematology [place] [address] Albino Bartholomew MD [facility] [address] [place] [address] documented as of this encounter Goals Goal Patient Goal Type Associated Problems Recent Progress Patient-Stated? Author Patient's specific desired goal: Patient Facing Action Plan No Sharda Lee, [facility] Note: Remain 95% or more adherent to oral chemotherapy over the next year as measured by refill history documented as of this encounter Visit Diagnoses Not on filedocumented in this encounter Care Teams Financial Administrator Relationship Specialty Start Date End Date Juan Dempsey MD [address] [place] [address] PCP - General Emergency Medicine 08/20/21 documented as of this encounter
--- OUTSIDE RECORDS SUMMARY | 2024-03-09 16:51 | XMS_ITS | Encounter Summary ---
Author Organization [facility] Address [facility] [place] [address] Care Team Providers Care Edging Machine Setter Name Role Phone Juan Dempsey MD Primary Care Provider [phone] Encounter Details Date Type Department Care Team (Late st Contact Info) Description 02/22/2024 Specialty [place] [phone] Reshma Gar, [facility] Social History Tobacco Use Types [...] this encounter Progress Notes * Reshma Gar [facility] - 02/22/2024 12:53 PM EDT Clinical Management Plan: Discontinuation of Therapy Specialty Pharmacy Consultation; Reshma Gar [facility] Comprehensive Medication Management (CMM) Cristofer Tenorio [address] [place] [address] Telephone Information: Work Phone Not on file. [...] made at the appointment and that [facility] isproviding recommendations (summary located at top of [...] [facility] Hematology Oncology [address] [place] [address] 03/29/2024 12:[address] [place] [address] Albino Bartholomew MD [facility] DR HEMATOLOGY [place] [address] 04/05/2024 10:00 AM EST Office Visit Hematology [place] [address] Albino Bartholomew MD [facility] DR HEMATOLOGY [place] [address] documented as of this encounter Goals Goal Patient Goal Type Associated Problems Recent Progress Patient-Stated? Author Patient's specific desired goal: Patient Facing Action Plan No Sharad Lee [facility] Note: Remain 95% or more adherent to oral chemotherapy over the next year as measured by refill history documented as of this encounter Visit Diagnoses Not on filedocumented in this encounter Care Teams Edging Machine Setter Relationship Specialty Start Date End Date Juan Dempsey MD [address] [place] [address] PCP - General Emergency Medicine 08/20/21 documented as of this encounter
--- OUTSIDE RECORDS SUMMARY | 2024-03-09 16:51 | XMS_ITS | Encounter Summary ---
Author Organization [facility] Address [facility] [place] [address] Care Team Providers Care Battery Recharger Name Role Phone Juan Dempsey MD Primary Care Provider [phone] Encounter Details Date Type Department Care Team (Late st Contact Info) Description 02/01/2024 Telephone Dermatology at [facility] [address] [place] [address] Oil Winter MD [address] [facility] [place] [address] Social History Tobacco Use Types Packs/Day Years [...] [facility] Hematology Oncology [address] [place] [address] 03/29/2024 12:[address] [place] [place] [address] Albino Bartholomew MD [facility] HEMATOLOGY [place] [address] 04/05/2024 10:00 AM EST Office Visit [place] [address] Albino Bartholomew MD [facility] HEMATOLOGY [place] [address] documented as of this encounter Goals Goal Patient Goal Type Associated Problems Recent Progress Patient-Stated? Author Patient's specific desired goal: Patient Facing Action Plan Sharda Lozano, [facility] Note: Remain 95% or more adherent to oral chemotherapy over the next year as measured by refill history documented as of this encounter Visit Diagnoses Not on filedocumented in this encounter Care Teams Battery Recharger Relationship Specialty Start Date End Date Juan Dempsey MD [address] [place] [address] PCP - General Emergency Medicine 08/20/21 documented as of this encounter
--- OUTSIDE RECORDS SUMMARY | 2024-03-09 16:51 | XMS_ITS | Encounter Summary ---
Author Organization [facility] Address [facility] [place] [address] Care Team Providers Care Pipe Welder Name Role Phone Juan Dempsey MD Primary Care Provider [phone] Encounter Details Date Type Department Care Team (Late st Contact Info) Description 01/24/2024 11:30 AM EDT Office Visit Dermatology at [facility] [address] [place] [address] Oli Winter MD [address] [facility] [place] [address] Seborrheic keratosis; Multiple benign nevi; Lentigines; Rodríguez [...] Oli Winter MD FAAD at Dermatology at [facility] Patient's preferred name Cristofer Preferred contact [...] to contact clinic for alternative. Handout from [employer] given to the patient. Start Rx [...] laser therapy. Cosmetic treatment and therefore, likely [id number] expense. Handout given. Answered all questions. Patient [...] unless symptoms develop. Treatment considered cosmetic and ajj-li-vewxlk. Treatment options, including but not limited to [...] dermatitis. [x] Recall placed [] Forwarded to firer retort [x] Patient scheduled before exiting Scribe attestation: Jonas Sanchez, RN has performed the documentation for this encounter in the presence of and acting as a scribe for Oli Winter MD FAAMichael. I performed the above scribed service and agree with the accuracy of the documentation in this encounter. Reviewed and signed by: MD LEONEL Leal Dermatology [facility] * Oli Winter MD - 01/24/2024 11:30 [...] [facility] [address] [place] [address] 03/29/2024 12:[address] [place] [place] [address] Albino Bartholomew MD [facility] [place] [address] 04/05/2024 10:00 AM EST Office Visit [place]ematology [place] [address] Albino Bartholomew MD [facility] DR [place] [address] documented as of this encounter Goals Goal Patient Goal Type Associated Problems Recent Progress Patient-Stated? Author Patient's specific desired goal: Patient Facing Action Plan Sharda Lozano, [facility] Note: Remain 95% or more adherent to [...] glands documented in this encounter Care Teams Pipe Welder Relationship Specialty Start Date End Date Juan Dempsey MD [address] [place] [address] PCP - General Emergency Medicine 08/20/21 documented as of this encounter
--- OUTSIDE RECORDS SUMMARY | 2024-03-09 16:51 | XMS_ITS | Encounter Summary ---
Author Organization [facility] Address [facility] [place] [address] Care Team Providers Care Bonding Supervisor Name Role Phone Juan Dempsey MD Primary Care Provider [phone] Encounter Details Date Type Department Care Team [...] [facility] Hematology Oncology [address] [place] [address] 03/29/2024 12:[address] [place] [place] [address] Albino Bartholomew MD [facility] DR HEMATOLOGY [place] [address] 04/05/2024 10:00 AM EST Office Visit Hematology [place] [address] Albino Bartholomew MD [facility] DR HEMATOLOGY [place] [address] documented as of this encounter Goals Goal [...] on filedocumented in this encounter Care Teams Bonding Supervisor Relationship Specialty Start Date End Date Juan Dempsey MD [address] [place] [address] PCP - General Emergency Medicine 08/20/21 documented as of this encounter
--- OUTSIDE RECORDS SUMMARY | 2024-03-09 16:51 | XMS_ITS | Encounter Summary ---
Author Organization [facility] Address [facility] [place] [address] Care Team Providers Care E Business Consultant Name Role Phone Juan Dempsey MD [...] 10:30 AM EST Laboratory Appointment Lab at [facility] Hematology Oncology [address] [place] [address] 03/29/2024 12:[address] [place] [place] [address] Albino Bartholomew MD [facility] [address] [place] [address] 04/05/2024 10:00 AM EST Office Visit [place]ematology [place] [address] Albino Bartholomew MD [facility] [place] [address] documented as of this encounter Goals Goal Patient Goal Type Associated Problems Recent Progress Patient-Stated? Author Patient's specific desired goal: Patient Facing Action Plan No Sharda Lee, [facility] Note: Remain 95% or more adherent to oral chemotherapy over the next year as measured by refill history documented as of this encounter Visit Diagnoses Not on filedocumented in this encounter Care Teams E Business Consultant Relationship Specialty Start Date End Date Juan Dempsey MD [address] [place] [address] PCP - General Emergency Medicine 08/20/21 documented as of this encounter
--- OUTSIDE RECORDS SUMMARY | 2024-03-09 16:51 | XMS_ITS | Encounter Summary ---
Author Organization [facility] Address [facility] [place] [address] Care Team Providers Care Lowerator Operator Name Role Phone Juan Dempsey MD Primary Care Provider [phone] Encounter Details Date Type Department Care Team (Latest Contact Info) Description 11/22/2023 Specialty [place] [phone] Marci Angel, [facility] Refill Coordination - 28 day recurrence (cabozantinib [...] (compared to [facility] med list) No Review Flowsheet 11/22/2023 8:36 [...] at [facility] Hematology Oncology [address] [place] [address] 03/29/2024 12:[address] [place] [address] Albino Bartholomew MD [facility] DR [place] [address] 04/05/2024 10:00 AM EST Office Visit Hematology [place] [address] Albino Bartholomew MD [facility] DR [place] [address] documented as of this encounter Visit Diagnoses Not on filedocumented in this encounter Care Teams Lowerator Operator Relationship Specialty Start Date End Date Juan Dempsey MD [address] [place] [address] PCP - General Emergency Medicine 08/20/21 documented as of this encounter
--- OUTSIDE RECORDS SUMMARY | 2024-03-09 16:51 | XMS_ITS | Encounter Summary ---
Author Organization [facility] Address [facility] [place] [address] Care Team Providers Care Wet Process Assistant Head Miller Name Role Phone Juan Dempsey MD Primary Care Provider [phone] Encounter Details Date Type Department Care Team [...] [facility] Hematology Oncology [address] [place] [address] 03/29/2024 12:[address] [place] [address] Albino Bartholomew MD [facility] DR HEMATOLOGY [place] [address] 04/05/2024 10:00 AM EST Office Visit Hematology [place] [address] Albino Bartholomew MD [facility] DR HEMATOLOGY [place] [address] documented as of this encounter Visit Diagnoses Not on filedocumented in this encounter Care Teams Wet Process Assistant Head Miller Relationship Specialty Start Date End Date Juan Dempsey MD [address] [place] [address] PCP - General Emergency Medicine 08/20/21 documented as of this encounter
--- OUTSIDE RECORDS SUMMARY | 2024-03-09 16:51 | XMS_ITS | Encounter Summary ---
[facility] Organization [facility] [address] Care Team Providers Care Bundle Collector Name Role Phone Juan Dempsey MD Primary Care Provider [phone] Encounter Details Date Type Department Care Team (Latest Contact Info) Description 02/09/2024 12:30 PM EDT Laboratory Appointment Lab at [facility] Hematology Oncology [address] [place] [address] Metastatic renal cell carcinoma to lung, [...] [facility] [place] [place] [address] [place] [address] 03/29/2024 12:[address] [place] [address] Albino Bartholomew MD [facility] DR HEMATOLOGY [place] [address] 04/05/2024 10:00 AM EST Office Visit Hematology [place] [address] Albino Bartholomew MD [facility] DR HEMATOLOGY [place] [address] documented as of this encounter Goals Goal Patient Goal Type Associated Problems Recent Progress Patient-Stated? Author Patient's specific desired goal: Patient Facing Action Plan Sharda Lozano, [facility] ED Note: Remain 95% or more adherent to [...] - 1.70 ng/dL 02/09/2024 1:08 PM EDT [facility] Blood VENOUS BLOOD SPECIMEN / Unknown Venipuncture / Unknown 02/09/2024 12:11 PM EDT 02/09/2024 12:11 PM EDT Albino Bartholomew MD CHEMISTRY ORDERABLES [facility] [place] [address] * TSH (02/09/2024 12:11 PM EDT) Thyroid Stimulating Hormone 2.38 0.27 - 4.20 mcIU/mL 02/09/2024 1:08 PM EDT [facility] Blood VENOUS BLOOD SPECIMEN / Unknown Venipuncture / Unknown 02/09/2024 12:11 PM EDT 02/09/2024 12:11 PM EDT Albino Bartholomew MD CHEMISTRY ORDERABLES [facility] [place] [address] * (ABNORMAL) Comprehensive metabolic panel (02/09/2024 12:11 PM EDT) Glucose 69 65 - 199 mg/dL 02/09/2024 1:08 PM [facility] Comment:Glucose Concentratio n >=200 mg/dL plus symptoms is consistent with Diabetes Mellitus. Blood Urea Nitrogen 35(H) 10 - 20 mg/dL 02/09/2024 1:08 PM [facility] Creatinine 2.59(H) 0.80 - 1.50 mg/dL 02/09/2024 1:08 PM [facility] Sodium 137 135 - 145 mMol/L 02/09/2024 1:08 PM [facility] Potassium 4.5 3.5 - 5.0 mMol/L 02/09/2024 1:08 PM [facility] Chloride 102 98 - 107 mMol/L 02/09/2024 1:08 PM [facility] Carbon Dioxide 25 22 - 31 mMol/L 02/09/2024 1:08 PM [facility] Anion Gap 10 5 - 15 mMol/L 02/09/2024 1:08 PM [facility] Calcium 8.9 8.5 - 10.5 mg/dL 02/09/2024 1:08 PM [facility] Protein, Total 6.9 6.1 - 8.0 g/dL 02/09/2024 1:08 PM [facility] Albumin 4.2 3.2 - 5.2 g/dL 02/09/2024 1:08 PM [facility] Aspartate Aminotransferase 137(H) <=39 unit/L 02/09/2024 1:08 PM [facility] Alanine Aminotransferase 559(H) 0 - 55 unit/L 02/09/2024 1:08 PM [facility] Alkaline Phosphatase 536(H) 40 - 130 unit/L 02/09/2024 1:08 PM [facility] Bilirubin, Total 0.9 <=1.3 mg/dL 02/09/2024 1:08 PM EDT [facility] Est Glomerular Filtration Rate - Male 26 mL/min/1. 73 m?? 02/09/2024 1:08 PM EDT [facility] Comment: [...] Fasting Status No 02/09/2024 1:08 PM EDT [facility] Blood VENOUS BLOOD SPECIMEN / Unknown Venipuncture / Unknown 02/09/2024 12:11 PM EDT 02/09/2024 12:11 PM EDT Albino Bartholomew MD CHEMISTRY ORDERABLES [facility] [place] [address] * (ABNORMAL) CBC (with Diff) (02/09/2024 12:11 PM EDT) White Blood Cell 7.59 4.00 - 9.50 x10(3)/mc L 02/09/2024 12:21 PM EDT [facility] Red Blood Cell 4.95 4.58 - 5.54 x10(6)/mc L 02/09/2024 12:21 PM EDT [facility] Hemoglobin 14.6 13.7 - 16.5 g/dL 02/09/2024 12:21 PM EDT [facility] Hematocrit 44.9 40.5 - 48.5 % 02/09/2024 12:21 PM [facility] Mean Cell Volume 90.7 82.9 - 93.1 fL 02/09/2024 12:21 PM [facility] Mean Cell Hemoglobin 29.5 27.5 - 32.1 pg 02/09/2024 12:21 PM [facility] Mean Cell Hemoglobin Concentration 32.5 32.0 - 35.7 g/dL 02/09/2024 12:21 PM [facility] Platelet 190 145 - 357 x10(3)/mc L 02/09/2024 12:21 PM [facility] Mean Platelet Volume 9.8 7.6 - 12.9 fL 02/09/2024 12:21 PM [facility] RDW Standard Deviation 54.0(H) 36.0 - 45.0 fL 02/09/2024 12:21 PM [facility] RDW coefficient of variation 16.2(H) 11.4 - 13.8 % 02/09/2024 12:21 PM [facility] NRBC% auto 0.0 % 02/09/2024 12:21 PM [facility] NRBC Absolute <0.01 <0.01 x10(3)/mc L 02/09/2024 12:21 PM [facility] Neutrophil % 63.4 % 02/09/2024 12:21 PM [facility] Neutrophil Absolute (ANC) - Automated 4.82 1.70 - 6.10 x10(3)/mc L 02/09/2024 12:21 PM [facility] Lymph % 24.0 % 02/09/2024 12:21 PM [facility] Lymph Absolute 1.82 0.90 - 3.20 x10(3)/mc L 02/09/2024 12:21 PM [facility] Monocyte % 7.8 % 02/09/2024 12:21 PM [facility] Monocyte Absolute 0.59 0.30 - 0.90 x10(3)/mc L 02/09/2024 12:21 PM EDT [facility] Eos % 3.3 % 02/09/2024 12:21 PM EDT [facility] Eos Absolute 0.25 0.00 - 0.40 x10(3)/mc L 02/09/2024 12:21 PM EDT [facility] Basophil % 1.2 % 02/09/2024 12:21 PM EDT [facility] Baso Absolute 0.09 0.00 - 0.10 x10(3)/mc L 02/09/2024 12:21 PM EDT [facility] Immature Gran % 0.3 % 12:21 PM EDT [facility] Immature Gran Absolute <0.04 0.00 - 0.04 x10(3)/mc L 02/09/2024 12:21 PM EDT [facility] Blood VENOUS BLOOD SPECIMEN / Unknown Venipuncture / Unknown 02/09/2024 12:11 PM EDT 02/09/2024 12:11 PM EDT Albino Bartholomew MD HEMATOLOGY ORDERABLE S [facility] [place] [address] documented in this encounter Visit Diagnoses Diagnosis Metastatic renal cell carcinoma to lung, unspecified laterality High risk medication use Encounter for long-term (current) use of other medications Abnormal thyroid function test Nonspecific abnormal results of thyroid function study documented in this encounter Care Teams Bundle Collector Relationship Specialty Start Date End Date Juan Dempsey MD [address] [place] [address] PCP - General Emergency Medicine 08/20/21 documented as of this encounter
--- OUTSIDE RECORDS SUMMARY | 2024-03-09 16:51 | XMS_ITS | Encounter Summary ---
Author Organization [facility] [place] [address] Care Team Providers Care Refuge Worker Name Role Phone Juan Dempsey MD Primary Care Provider [phone] Reason for Visit * Reason Onset Date Comments Medication Refill 01/17/2024 Encounter Details Date Type Department Care Team (Late st Contact Info) Description 01/17/2024 Refill [place] [address] [address] HEMATOLOGY AND ONCOLOGY [place], [place] [id number] Social History Tobacco Use Types Packs/Day Years [...] [facility] [place] [address] [place] [address] 03/29/2024 12:[address] [place] [address] [facility] DR [place] [address] 04/05/2024 10:00 AM EST Office Visit Hematology [place] [address] [facility] [address] [place] [address] documented as of this encounter Goals Goal Patient Goal Type Associated Problems Recent Progress Patient-Stated? Author Patient's specific desired goal: Patient Facing Action Plan No Sharda Lee, [facility] Note: Remain 95% or more adherent to oral chemotherapy over the next year as measured by refill history documented as of this encounter Visit Diagnoses Not on filedocumented in this encounter Care Teams Refuge Worker Relationship Specialty Start Date End Date Juan Dempsey MD [address] [place] [address] PCP - General Emergency Medicine 08/20/21 documented as of this encounter
--- OUTSIDE RECORDS SUMMARY | 2024-03-09 16:51 | XMS_ITS | Encounter Summary ---
Author Organization [facility] Address [facility] [place] [address] Care Team Providers Care Referral Coordinator Name Role Phone Juan Dempsey MD Primary Care Provider [phone] Encounter Details Date Type Department Care Team (Late st Contact Info) Description 02/06/2024 Orders Only Hematology [place] [address] Albino Bartholomew MD [facility] [address] [place] [address] Social History Tobacco Use Types Packs/Day Years [...] at [facility] [place] [address] [place] [address] 03/29/2024 12:[address] [place] [address] Albino Bartholomew MD [facility] [address] [place] [address] 04/05/2024 10:00 AM EST Office Visit Hematology [place] [address] Albino Bartholomew MD [facility] [address] [place] [address] documented as of this encounter Goals Goal Patient Goal Type Associated Problems Recent Progress Patient-Stated? Author Patient's specific desired goal: Patient Facing Action Plan Sharda Lozano, [facility] Note: Remain 95% or more adherent to oral chemotherapy over the next year as measured by refill history documented as of this encounter Visit Diagnoses Not on filedocumented in this encounter Care Teams Referral Coordinator Relationship Specialty Start Date End Date Juan Dempsey MD [address] [place] [address] PCP - General Emergency Medicine 08/20/21 documented as of this encounter
--- OUTSIDE RECORDS SUMMARY | 2024-03-09 16:51 | XMS_ITS | Encounter Summary ---
Author Organization [facility] Address [facility] [place] [address] Care Team Providers Care Performance Solutions Specialist Name Role Phone Juan Dempsey MD Primary Care Provider [phone] Encounter Details Date Type Department Care Team [...] AM EST Laboratory Appointment Lab at [facility] [place] Hematology Oncology [address] [place] [address] 03/29/2024 12:[address] [place] [place] [address] [facility] [address] HEMATOLOGY [place] [address] 04/05/2024 10:00 AM EST Office Visit [place] [address] [facility] [address] HEMATOLOGY [place] [address] documented as of this encounter Goals Goal Patient Goal Type Associated Problems Recent Progress Patient-Stated? Author Patient's specific desired goal: Patient Facing Action Plan No Sharda Lee, [facility] Note: Remain 95% or more adherent to oral chemotherapy over the next year as measured by refill history documented as of this encounter Visit Diagnoses Not on filedocumented in this encounter Care Teams Performance Solutions Specialist Relationship Specialty Start Date End Date Juan Dempsey MD [address] [place] [address] PCP - General Emergency Medicine 08/20/21 documented as of this encounter
--- OUTSIDE RECORDS SUMMARY | 2024-03-09 16:51 | XMS_ITS | Encounter Summary ---
Author Organization [facility] Address [facility] [place] [address] Care Team Providers Care Road Traffic Controller Name Role Phone Juan Dempsey MD Primary Care Provider [phone] Encounter Details Date Type Department Care Team [...] [facility] Hematology Oncology [address] [place] [address] 03/29/2024 12:[address] [place] [address] Albino Bartholomew MD [facility] [address] [place] [address] 04/05/2024 10:00 AM EST Office Visit Hematology [place] [address] Albino Bartholomew MD [facility] [address] [place] [address] documented as of this encounter Visit Diagnoses Not on filedocumented in this encounter Care Teams Road Traffic Controller Relationship Specialty Start Date End Date Juan Dempsey MD [address] [place] [address] PCP - General Emergency Medicine 08/20/21 documented as of this encounter
--- OUTSIDE RECORDS SUMMARY | 2024-03-09 16:51 | XMS_ITS | Encounter Summary ---
Author Organization [facility] Address [facility] [place] [address] Care Team Providers Care Soldering Machine Operator Helper Name Role Phone Juan Dempsey MD Primary Care Provider [phone] Reason for Referral * Diagnostic Test (Routine) - Authorized Specialty Diagnoses / Procedures Referred By Contac t Referred To Contact Radiology Diagnoses Renal cell carcinoma of left kidney Metastatic renal cell carcinoma to lung, unspecified laterality Procedures CT Chest Abdomen Pelvis w Contrast (Generic) Albino Bartholomew MD [facility] [address] [place] [address] [facility] [place] [address] Referral ID Status Reason Start Date Expiration Date Visits Requested Visits Authorized [id number] Authorized Specialty Service Requested 08/16/2025 1 1 Reason for Visit * Reason Comments Follow-up Encounter Details Date Type Department Care Team (Late st Contact Info) Description 02/16/2024 1:30 PM EDT Office Visit Hematology [place] [address] Albino Bartholomew MD [facility] [address] [place] [address] Metastatic renal cell carcinoma to lung, unspecified [...] note were not included. Medical Oncology: Genitourinary [facility] [place] [address] [phone] HPI: Mr. Tenorio is a 68 y.o. [...] Guided Biopsy Lung 02/04/2022 Rich Baldwin MD [facility] RAD CT SCAN HERNIA REPAIR Left inguinal PRO COLONOSCOPY, DIAGNOSTIC N/A 10/02/2021 COLONOSCOPY, DIAGNOSTIC performed by Jordyn Merino MD at [facility] ENDOSCOPY PRO CYSTOURETHROSCOPY N/A 06/23/2021 CYSTO, CYSTOURETHROSCOPY, DIAGNOSTIC (WRVU 2.23) performed by Jordan Hou MD at [facility] MAIN OR PRO REMV KIDNEY, RADICAL Left 06/23/2021 @NEPHRECTOMY, RADICAL W\REG LYMPHADENECTOMY &\OR VENA CAVA THROMBECTOMY (WRVU 23.81) performed by Jordan Hou MD at [facility] MAIN OR Family History Problem [...] daughter; one step daughter as well 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 Remainder stable. Assessment: Raymundo Tenorio is a 68 y.o. [...] We'll send orders and I'll ask our editing computer publisher to f/u on results. Advised pt to [...] Cabometyx with minimal side effects. Follows with farm crew member Dr. Pringle, with plans to taper him [...] 10:30 AM EST Laboratory Appointment Lab at [facility] [place] Hematology Oncology [address] [place] [address] 03/29/2024 12:[address] [place] [address] Albino Bartholomew MD [facility] DR [place] [address] 04/05/2024 10:00 AM EST Office Visit Hematology [place] [address] Albino Bartholomew MD [facility] DR [place] [address] Scheduled Orders Name Type Priority Associated Diagnoses [...] Action Plan No Sharda Lee, [facility] Note: Remain 95% or more [...] levels documented in this encounter Care Teams Soldering Machine Operator Helper Relationship Specialty Start Date End Date Juan Dempsey MD [address] [place] [address] PCP - General Emergency Medicine 08/20/21 documented as of this encounter
--- OUTSIDE RECORDS SUMMARY | 2024-03-09 16:51 | XMS_ITS | Encounter Summary ---
Author Organization [facility] Address [facility] [place] [address] Care Team Providers Care Loading Machine Operator Helper Name Role Phone Juan Dempsey MD Primary Care Provider [phone] Encounter Details Date Type Department Care Team (Late st Contact Info) Description 01/31/2024 Telephone Dermatology at [facility] [address] [place] [phone] Oli Winter MD [address] [facility] [place] [address] Social History Tobacco Use Types Packs/Day Years [...] [facility] Hematology Oncology [address] [place] [address] 03/29/2024 12:[address] [place] [address] [facility] [place] [address] 04/05/2024 10:00 AM EST Office Visit Hematology [place] [address] [facility] DR [place] [address] documented as of this encounter Goals Goal Patient Goal Type Associated Problems Recent Progress Patient-Stated? Author Patient's specific desired goal: Patient Facing Action Plan Sharda Lozano, [facility] Note: Remain 95% or more adherent to oral chemotherapy over the next year as measured by refill history documented as of this encounter Visit Diagnoses Not on filedocumented in this encounter Care Teams Loading Machine Operator Helper Relationship Specialty Start Date End Date Juan Dempsey MD [address] [place] [address] PCP - General Emergency Medicine 08/20/21 documented as of this encounter
--- OUTSIDE RECORDS SUMMARY | 2024-03-09 16:51 | XMS_ITS | Encounter Summary ---
Author Organization [facility] [place] [address] Care Team Providers Care Dip Brazier Name Role Phone Juan Dempsey MD Primary Care Provider [phone] Reason for Visit * Reason Comments Medication Refill Encounter Details Date Type Department Care Team (Late st Contact Info) Description 03/06/2024 Refill [place] [address] Kelin Carlos, [address] HEMATOLOGY AND ONCOLOGY [place], [place] [address] Social History Tobacco Use Types Packs/Day Years [...] [facility] [place] On[place] [address] [place] [address] 03/29/2024 12:[address] [place] [place] [address] Albino Barthloomew MD [facility] [place] [address] 04/05/2024 10:00 AM EST Office Visit [place]ematology [place] [address] Albino Bartholomew MD [facility] [place] [address] documented as of this encounter Goals Goal Patient Goal Type Associated Problems Recent Progress Patient-Stated? Author Patient's specific desired goal: Patient Facing Action Plan No Sharda Lee, [facility] Note: Remain 95% or more adherent to oral chemotherapy over the next year as measured by refill history documented as of this encounter Visit Diagnoses Not on filedocumented in this encounter Care Teams Dip Brazier Relationship Specialty Start Date End Date Juan Dempsey MD [address] [place] [address] PCP - General Emergency Medicine 08/20/21 documented as of this encounter
--- OUTSIDE RECORDS SUMMARY | 2024-03-09 16:51 | XMS_ITS | Encounter Summary ---
Author Organization [facility] Address [facility] [place] [address] Care Team Providers Care Avionics Safety Inspector Name Role Phone Juan Dempsey MD Primary Care Provider [phone] Encounter Details Date Type Department Care Team (Late st Contact Info) Description 03/03/2024 Telephone Hematology [place] [address] Daxa Arriola RN Social History [...] [facility] [place] Oncology [address] [place] [address] 03/29/2024 12:[address] [place] [place] [address] Albino Bartholomew MD [facility] DR [place] [address] 04/05/2024 10:00 AM EST Office Visit Hematology [place] [address] Albino Bartholomew MD [facility] DR [place] [address] documented as of this encounter Goals Goal Patient Goal Type Associated Problems Recent Progress Patient-Stated? Author Patient's specific desired goal: Patient Facing Action Plan No Sharda Lee, [facility] Note: Remain 95% or more adherent to oral chemotherapy over the next year as measured by refill history documented as of this encounter Visit Diagnoses Not on filedocumented in this encounter Care Teams Avionics Safety Inspector Relationship Specialty Start Date End Date Juan Dempsey MD [address] [place] [address] PCP - General Emergency Medicine 08/20/21 documented as of this encounter
--- OUTSIDE RECORDS SUMMARY | 2024-03-09 16:51 | XMS_ITS | Encounter Summary ---
Author Organization [facility] Address [facility] [place] [address] Care Team Providers Care Asset Protection Assistant Name Role Phone Juan Dempsey MD Primary Care Provider [phone] Encounter Details Date Type Department Care Team (Late st Contact Info) Description 02/29/2024 Orders Only [place] [address] Ana Pringle MD [facility] [place] [address] Autoimmune hepatitis Social History Tobacco Use Types [...] [facility] [place] On[place] [address] [place] [address] 03/29/2024 12:[address] [place] [address] Albino Bartholomew MD [facility] DR HEMATOLOGY [place] [address] 04/05/2024 10:00 AM EST Office Visit Hematology [place] [address] Albino Bartholomew MD [facility] DR HEMATOLOGY [place] [address] Scheduled Orders Name Type Priority Associated Diagnoses Orde r Schedule Comprehensive metabolic panel Non-fasting Lab Routine Autoimmune hepatitis Expected: 03/07/2024 (Approximate), Expires: 09/06/2024 documented as of this encounter Goals Goal Patient Goal Type Associated Problems Recent Progress Patient-Stated? Author Patient's specific desired goal: Patient Facing Action Plan No Sharda Lee, [facility] Note: Remain 95% or more adherent to oral chemotherapy over the next year as measured by refill history documented as of this encounter Visit Diagnoses Diagnosis Autoimmune hepatitis documented in this encounter Care Teams Asset Protection Assistant Relationship Specialty Start Date End Date Juan Dempsey MD [address] [place] [address] PCP - General Emergency Medicine 08/20/21 documented as of this encounter
--- OUTSIDE RECORDS SUMMARY | 2024-03-09 16:51 | XMS_ITS | Encounter Summary ---
Author Organization [facility] Address [facility] [place] [address] Care Team Providers Care Piano Regulator Inspector Name Role Phone Juan Dempsey MD Primary Care Provider [phone] Encounter Details Date Type Department Care Team (Late st Contact Info) Description 02/03/2024 Ancillary Procedure Radiology Library at [facility] [place] [address] Juan Dempsey MD [address] [place] [address] Social History Tobacco Use Types [...] AM EST Laboratory Appointment Lab at [facility] Hematology Oncology [address] [place] [address] 03/29/2024 12:[address] [place] [address] Albino Bartholomew MD [facility] DR [place] [address] 04/05/2024 10:00 AM EST Office Visit Hematology [place] [address] Albino Bartholomew MD [facility] DR [place] [address] documented as of this encounter Goals Goal [...] Ultrasound Study (02/03/2024 12:00 AM EDT) Narrative [facility] - 02/22/2024 2:52 PM EDT This exam is auto-finalizing. It's purpose is for storage only. Juan Dempsey MD IMG FILM LIBRARY ORD ERABLES Performing Organization Address City/State/[facility] Co de Phone Number [place], [place] documented in this encounter Visit Diagnoses Not on filedocumented in this encounter Care Teams Piano Regulator Inspector Relationship Specialty Start Date End Date Juan Dempsey MD [address] [place] [address] PCP - General Emergency Medicine 08/20/21 documented as of this encounter
--- OUTSIDE RECORDS SUMMARY | 2024-03-09 16:52 | XMS_ITS | Encounter Summary ---
Author Organization [facility] Address [place] [address] Care Team Providers Care Sr. Payroll Processor Name Role Phone Juan Dempsey MD Primary Care Provider [phone] Encounter Details Date Type Department Care Team (Late st Contact Info) Description 08/19/2023 Orders Only [place] [address] Kelin Carlos, INSPECTOR [employer] [address] [place] [address] DR HEMATOLOGY AND ONCOLOGY [place], [place] [id number] Social History Tobacco Use Types Packs/Day Years [...] [facility] [place] On[facility] [address] [place] [address] 03/29/2024 12:[address] [place] [phone] Albino Bartholomew MD [facility] [address] [place] [address] 04/05/2024 10:00 AM EST Office Visit Hematology [place] [address] Albino Bartholomew MD [facility] [address] [place] [address] documented as of this encounter Visit Diagnoses Not on filedocumented in this encounter Care Teams Sr. Payroll Processor Relationship Specialty Start Date End Date Juan Dempsey MD [address] [place] [address] PCP - General Emergency Medicine 08/20/21 documented as of this encounter
--- OUTSIDE RECORDS SUMMARY | 2024-03-09 16:52 | XMS_ITS | Encounter Summary ---
Author Organization [facility] Address [facility] [place] [address] Care Team Providers Care Diesel Service Apprentice Name Role Phone Juan Dempsey MD Primary Care Provider [phone] Encounter Details Date Type Department Care Team (Latest Contact Info) Description 10/08/2023 10:39 AM EDT - 10/08/2023 11:59 PM EDT Hospital Encounter Hematology [place] [phone] Metastatic renal cell carcinoma to lung, unspecified [...] [facility] [place] Oncology [address] [place] [address] 03/29/2024 12:[address] [place] [address] Albino Bartholomew MD [facility] [address] [place] [address] 04/05/2024 10:00 AM EST Office Visit Hematology [place] [address] Albino Bartholomew MD [facility] [address] [place] [address] documented as of this encounter Procedures Procedure [...] EDT) Glucose 71 65 - 199 mg/dL [facility] Comment:Diabetes: >=200 mg/d L plus symptoms Blood Urea Nitrogen 22(H) 10 - 20 mg/dL [facility] Creatinine 1.55(H) 0.80 - 1.50 mg/dL [facility] Sodium 143 135 - 145 mmol/L [facility] Potassium 4.1 3.5 - 5.0 mmol/L [facility] Comment: Please note: ??Patients with WBC >100,000 may have falsely elevated Potassium levels. ??For accurate Potassium quantification in these patients send serum separator tube (gold top) for subsequent determinations. ??Contact the Clinical Chemistry Laboratory if there are any questions. Chloride 106 98 - 107 mmol/L [facility] Carbon Dioxide 25 22 - 31 mmol/L [facility] Anion Gap 12 5 - 15 mmol/L [facility] Calcium 9.7 8.5 - 10.5 mg/dL [facility] Protein, Total 6.9 6.1 - 8.0 g/dL [facility] Albumin 4.1 3.2 - 5.2 g/dL [facility] Aspartate Aminotransferase 28 0 - 39 unit/L [facility] Alanine Aminotransferase 31 0 - 55 unit/L [facility] Alkaline Phosphatase 154(H) 40 - 130 unit/L [facility] Bilirubin, Total 0.3 0.2 - 1.3 mg/dL [facility] Est Glomerular Filtration Rate 48(L) >=60 mL/min/1. 73 m?? [facility] [...] Bartholomew MD CHEMISTRY ORDERABLES Performing Organization Address City/State/[facility] Co de Phone Number [facility] [place] [address] * Differential, Automated (10/08/2023 10:50 AM EDT) Neutrophil % 63.2 % [facility] Neutrophil Absolute 4.83 1.70 - 6.10 x10(3)/[facility] Lymph % 22.7 % [facility] Lymphocytes Abs 1.7 0.9 - 3.2 x10(3)/[facility] Monocyte % 7.0 % [facility] Monocyte Abs 0.5 0.3 - 0.9 x10(3)/[facility] Eos % 5.7 % [facility] Eosinophils Abs 0.4 0.0 - 0.4 x10(3)/[facility] Basophil % 1.0 % [facility] Baso Absolute 0.1 0.0 - 0.1 x10(3)/[facility] Immature Gran % 0.40 % [facility] Comment: Immature granulocytes(IG's)percentage and absolute count will include metamyelocytes, myelocytes, and promyelocytes. Blood smears from CBCs yielding IG's will be scanned manually for concordance. If this scan disagrees with the automated IG or if promyelocytes are noted, a manual differential will be performed. Immature Gran Absolute 0.03 0.00 - 0.04 x10(3)/mcL [facility] Blood 10/08/2023 10:5 0 AM EDT 10/08/2023 11:07 AM EDT Narrative Resulting Agency Comment Spec In Lab Kelin Carlos APRN HEMATOLOGY ORDERAB LES [facility] [place] [address] * (ABNORMAL) Hemogram (10/08/2023 10:50 AM EDT) White Blood Cell 7.7 4.0 - 9.5 x10(3)/mc L [facility] Red Blood Cell 4.70 4.58 - 5.54 x10(6)/mc L [facility] Hemoglobin 14.4 13.7 - 16.5 g/dL [facility] Hematocrit 43.6 40.5 - 48.5 % [facility] Mean Cell Volume 92.8 82.9 - 93.[address] [facility] Mean Cell Hemoglobin 30.6 27.5 - 32.[address] [facility] Mean Cell Hemoglobin Concentration 33.0 32.0 - 35.7 g/dL [facility] Platelet 186 145 - 357 x10(3)/mc L [facility] RDW Standard Deviation 49.9(H) 36.0 - 45.[address] [facility] RDW coefficient of variation 14.6(H) 11.4 - 13.8 % [facility] Mean Platelet Volume 9.5 7.6 - 12.[address] [facility] NRBC% auto 0.0 % [facility] NRBC Absolute 0.000 0.000 - 0.000 x10(3)/mc L [facility] Blood 10/08/2023 10:5 0 AM EDT 10/08/2023 11:07 AM EDT Narrative Resulting Agency Comment Spec In Lab Kelin Carlos BABY SITTER HEMATOLOGY ORDERAB LES Performing Organization Address [facility] de Phone Number [facility] [address] * T4, free (10/08/2023 10:50 AM EDT) Free T4 1.41 0.93 - 1.70 ng/dL [facility] Comment: Reference Interval (ng/dL): Females: ??First Trimester: 0.97-1.68 ??Second Trimester: 0.77-1.51 ??Third Trimester: 0.77-1.49 Blood 10/08/2023 10:5 0 AM EDT 10/08/2023 11:07 AM EDT Narrative Resulting Agency Comment Spec In Lab Kelin Carlos APRN CHEMISTRY ORDERABL ES Performing Organization Address [facility] Phone Number [facility] [place] [address] * TSH (10/08/2023 10:50 AM EDT) Thyroid Stimulating Hormone 3.50 0.27 - 4.20 mcIU/mL [facility] Comment: Reference Interval (mcIU/mL): Females: ??First Trimester: 0.23-3.88 ??Second Trimester: 0.22-3.90 ??Third Trimester: 0.44-4.66 Blood 10/08/2023 10:5 0 AM EDT 10/08/2023 11:07 AM EDT Narrative Resulting Agency Comment Spec In Lab Kelin Carlos BABY SITTER [place]MI[place] [address] documented in this encounter Visit Diagnoses Diagnosis Metastatic renal cell carcinoma to lung, unspecified laterality High risk medication use Encounter for long-term (current) use of other medications documented in this encounter Care Teams Diesel Service Apprentice Relationship Specialty Start Date End Date Juan Dempsey MD [address] [place] [address] PCP - General Emergency Medicine 08/20/21 documented as of this encounter
--- OUTSIDE RECORDS SUMMARY | 2024-03-09 16:52 | XMS_ITS | Encounter Summary ---
Author Organization [facility] Address [facility] [place] [address] Care Team Providers Care Television Engineering Teacher Name Role Phone Juan Dempsey MD Primary Care Provider [phone] Encounter Details Date Type Department Care Team (Latest Contact Info) Description 06/02/2023 11:59 AM EST - 06/02/2023 11:59 PM EST Hospital Encounter Hematology [place] [phone] Metastatic renal cell carcinoma to lung, unspecified [...] Lab at [facility] Hematology Oncology [address] [place] [address] 03/29/2024 12:[address] [place] [phone] Albino Bartholomew MD [facility] [place] [address] 04/05/2024 10:00 AM EST Office Visit Hematology [place] [phone] Albino Bartholomew MD [facility] [place] [address] documented as of this encounter Procedures Procedure [...] Bilirubin, Direct 0.1 0.0 - 0.3 mg/dL [facility] Blood 06/02/2023 12:1 2 PM EST 06/02/2023 12:23 PM EST Narrative Resulting Agency Comment Spec In Lab Ana Pringle MD CHEMISTRY ORDERABLES [facility] [place] [address] * Differential, Automated (06/02/2023 12:12 PM EST) Neutrophil % 71.5 % [facility] Neutrophil Absolute 5.68 1.70 - 6.10 x10(3)/[facility] Lymph % 18.6 % [facility] Lymphocytes Abs 1.5 0.9 - 3.2 x10(3)/[facility] Monocyte % 4.9 % [facility] Monocyte Abs 0.4 0.3 - 0.9 x10(3)/[facility] Eos % 3.3 % [facility] Eosinophils Abs 0.3 0.0 - 0.4 x10(3)/[facility] Basophil % 1.3 % [facility] Baso Absolute 0.1 0.0 - 0.1 x10(3)/[facility] Immature Gran % 0.40 % [facility] Comment: Immature granulocytes(IG's)percentage and absolute count will include metamyelocytes, myelocytes, and promyelocytes. Blood smears from CBCs yielding IG's will be scanned manually for concordance. If this scan disagrees with the automated IG or if promyelocytes are noted, a manual differential will be performed. Immature Gran Absolute 0.03 0.00 - 0.04 x10(3)/[facility] Blood 06/02/2023 12:1 2 PM EST 06/02/2023 12:23 PM EST Narrative Resulting Agency Comment Spec In Lab Albino Bartholomew MD HEMATOLOGY ORDERABLE S [facility] [place] [address] * (ABNORMAL) Hemogram (06/02/2023 12:12 PM EST) White Blood Cell 7.9 4.0 - 9.5 x10(3)/mc L [facility] Red Blood Cell 4.21(L) 4.58 - 5.54 x10(6)/mc L [facility] Hemoglobin 13.1(L) 13.7 - 16.5 g/dL [facility] Hematocrit 39.2(L) 40.5 - 48.5 % [facility] Mean Cell Volume 93.1 82.9 - 93.1 fL [facility] Mean Cell Hemoglobin 31.1 27.5 - 32.1 pg [facility] Mean Cell Hemoglobin Concentration 33.4 32.0 - 35.7 g/dL [facility] Platelet 234 145 - 357 x10(3)/mc L [facility] RDW Standard Deviation 46.1(H) 36.0 - 45.0 fL [facility] RDW coefficient of variation 13.5 11.4 - 13.8 % [facility] Mean Platelet Volume 9.6 7.6 - 12.9 fL [facility] NRBC% auto 0.0 % [facility] NRBC Absolute 0.000 0.000 - 0.000 x10(3)/mc L [facility] Blood 06/02/2023 12:1 2 PM EST 06/02/2023 12:23 PM EST Narrative Resulting Agency Comment Spec In Lab Albino Bartholomew MD HEMATOLOGY ORDERABLE S Performing Organization Address City/[facility]/ZIP Co de Phone Number [facility] [place] [address] * (ABNORMAL) Comprehensive metabolic panel (non-fasting) (06/02/2023 12:12 PM EST) Glucose 112 65 - 199 mg/dL [facility] Comment:Diabetes: >=200 mg/d L plus symptoms Blood Urea Nitrogen 20 10 - 20 mg/dL [facility] Creatinine 1.53(H) 0.80 - 1.50 mg/dL [facility] Sodium 142 135 - 145 mmol/L [facility] Potassium 4.2 3.5 - 5.0 mmol/L [facility] Comment: Please note: ??Patients with WBC >100,000 may have falsely elevated Potassium levels. ??For accurate Potassium quantification in these patients send serum separator tube (gold top) for subsequent determinations. ??Contact the Clinical Chemistry Laboratory if there are any questions. Chloride 106 98 - 107 mmol/L [facility] Carbon Dioxide 27 22 - 31 mmol/L [facility] Anion Gap 9 5 - 15 mmol/L [facility] Calcium 9.2 8.5 - 10.5 mg/dL [facility] Protein, Total 6.5 6.1 - 8.0 g/dL [facility] Albumin 4.0 3.2 - 5.2 g/dL [facility] Aspartate Aminotransferase 26 0 - 39 unit/L [facility] Alanine Aminotransferase 28 0 - 55 unit/L [facility] Alkaline Phosphatase 124 40 - 130 unit/L [facility] Bilirubin, Total 0.3 0.2 - 1.3 mg/dL [facility] Est Glomerular Filtration Rate 49(L) >=60 mL/min/1. 73 m?? [facility] Comment: This patient's [...] In Lab Albino Bartholomew MD CHEMISTRY ORDERABLES [facility] [place] [address] * TSH (06/02/2023 12:12 PM EST) Thyroid Stimulating Hormone 2.83 0.27 - 4.20 mcIU/mL [facility] Comment: Reference Interval (mcIU/mL): Females: ??First Trimester: 0.23-3.88 ??Second Trimester: 0.22-3.90 ??Third Trimester: 0.44-4.66 Blood 06/02/2023 12:1 2 PM EST 06/02/2023 12:23 PM EST Narrative Resulting Agency Comment Spec In Lab Albino Bartholomew MD CHEMISTRY ORDERABLES Performing Organization Address [facility] Co de Phone Number [facility] [place] [address] * T4, free (06/02/2023 12:12 PM EST) Free T4 1.64 0.93 - 1.70 ng/dL [facility] Comment: Reference Interval (ng/dL): Females: ??First Trimester: 0.97-1.68 ??Second Trimester: 0.77-1.51 ??Third Trimester: 0.77-1.49 Blood 06/02/2023 12:1 2 PM EST 06/02/2023 12:23 PM EST Narrative Resulting Agency Comment Spec In Lab Albino Bartholomew MD CHEMISTRY ORDERABLES Performing Organization Address [facility] Co de Phone Number [facility] [place] [address] documented in this encounter Visit Diagnoses Diagnosis Metastatic renal cell carcinoma to lung, unspecified laterality High risk medication use Encounter for long-term (current) use of other medications Abnormal thyroid function test Nonspecific abnormal results of thyroid function study Autoimmune hepatitis documented in this encounter Care Teams Television Engineering Teacher Relationship Specialty Start Date End Date Juan Dempsey MD [address] [place] [address] PCP - General Emergency Medicine 08/20/21 documented as of this encounter
--- OUTSIDE RECORDS SUMMARY | 2024-03-09 16:52 | XMS_ITS | Encounter Summary ---
Author Organization Pending [facility] To [facility] Address [facility] [place] [address] Care Team Providers Care Solar Systems Designer Name Role Phone Juan Dempsey MD Primary Care Provider [phone] Encounter Details Date Type Department Care Team (Late st Contact Info) Description 08/19/2023 Orders Only Hematology [place] [phone] Albino Bartholomew MD [facility] DR HEMATOLOGY [place] [address] Social History Tobacco Use Types Packs/Day Years [...] [facility] Hematology Oncology [address] [place] [address] 03/29/2024 12:[address] [place] [phone] Albino Bartholomew MD [facility] DR HEMATOLOGY [place] [address] 04/05/2024 10:00 AM EST Office Visit Hematology [place] [address] Albino Bartholomew MD [facility] DR HEMATOLOGY [place] [address] documented as of this encounter Visit Diagnoses Not on filedocumented in this encounter Care Teams Solar Systems Designer Relationship Specialty Start Date End Date Juan Dempsey MD [address] [place] [address] PCP - General Emergency Medicine 08/20/21 documented as of this encounter
--- OUTSIDE RECORDS SUMMARY | 2024-03-09 16:52 | XMS_ITS | Encounter Summary ---
Author Organization [facility] Address [facility] [place] [address] Care Team Providers Care Cordwood Cutter Name [...] 10:30 AM EST Laboratory Appointment Lab at [facility] Hematology Oncology [address] [place] [address] 03/29/2024 12:[address] [place] [address] Albino Bartholomew MD [facility] DR HEMATOLOGY [place] [address] 04/05/2024 10:00 AM EST Office Visit Hematology [place] [address] Albino Bartholomew MD [facility] DR HEMATOLOGY [place] [address] documented as of this encounter Visit Diagnoses Not on filedocumented in this encounter Care Teams Cordwood Cutter Relationship Specialty Start Date End Date Juan Dempsey MD [address] [place] [address] PCP - General Emergency Medicine 08/20/21 documented as of this encounter
--- OUTSIDE RECORDS SUMMARY | 2024-03-09 16:52 | XMS_ITS | Encounter Summary ---
Author Organization [facility] Address [facility] [place] [address] Care Team Providers Care Senior Payroll Manager Name Role Phone Juan Dempsey MD Primary Care Provider [phone] Reason for Visit * Reason Comments Medication Refill Encounter Details Date Type Department Care Team (Late st Contact Info) Description 08/17/2023 Specialty [place] [address] Sharda Lee, [facility] Social History Tobacco Use Types Packs/Day [...] this encounter Progress Notes * Sharda Lee [facility] - 08/17/2023 11:25 AM EDT Clinical Management Plan: Refill Specialty Pharmacy Consultation; Sharda Lee [facility] Comprehensive Medication Management (CMM) Cristofer Oh Anamarilynnaida [...] Standard Peanut Medication Reconciliation Discrepancies (compared to [place] [...] [facility] Hematology Oncology [address] [place] [address] 03/29/2024 12:[address] [place] [address] Albino Bartholomew MD [facility] DR [place] [address] 04/05/2024 10:00 AM EST Office Visit Hematology [place] [address] Albino Bartholomew MD [facility] DR [place] [address] documented as of this encounter Visit Diagnoses Not on filedocumented in this encounter Care Teams Senior Payroll Manager Relationship Specialty Start Date End Date Juan Dempsey MD [address] [place] [address] PCP - General Emergency Medicine 08/20/21 documented as of this encounter
--- OUTSIDE RECORDS SUMMARY | 2024-03-09 16:52 | XMS_ITS | Encounter Summary ---
Author Organization [facility] Address [facility] [place] [address] Care Team Providers Care Customer Experience Retail Clerk Name Role Phone Juan Dempsey MD Primary Care Provider [phone] Encounter Details Date Type Department Care Team [...] EST Laboratory Appointment Lab at [facility] Hematology Oncology [address] [place] [address] 03/29/2024 12:[address] [place] [address] Albino Bartholomew MD [facility] DR [place]EM[place]Y [place] [address] 04/05/2024 10:00 AM EST Office Visit Hematology [place] [address] Albino Bartholomew MD [facility] DR [place]EM[place] [address] documented as of this encounter Visit Diagnoses Not on filedocumented in this encounter Care Teams Customer Experience Retail Clerk Relationship Specialty Start Date End Date Juan Dempsey MD [address] [place] [address] PCP - General Emergency Medicine 08/20/21 documented as of this encounter
--- OUTSIDE RECORDS SUMMARY | 2024-03-09 16:52 | XMS_ITS | Encounter Summary ---
Author Organization [facility] Address [facility] [place] [address] Care Team Providers Care Administrative Office Clerk Name Role Phone Juan Dempsey MD Primary Care Provider [phone] Encounter Details Date Type Department Care Team (Late st Contact Info) Description 09/30/2023 Telephone Hematology [place] [address] Daxa Arriola RN Social History [...] 9:42 AM EDT Message received from clinical tours captain: cristofer said he got a msg from you and he would like to speak to you about this. Call placed to pt to discuss above. Pt instructed on use of medications prescribed for rash. Pt confirmed that pharmacy will be able to fill for him today prior to leaving [facility]. All questions answered. Pt advised to call office at [phone] with any worsening symptoms or concerns. Pt verbalized understanding and agreement with plan. documented in this encounter Plan of Treatment Upcoming Encounters Date Type Department Care Team (Late st Contact Info) Description 03/29/2024 10:30 AM EST Laboratory Appointment Lab at [facility] Hematology Oncology [address] [place] [address] 03/29/2024 12:[address] [place] [address] Albino Bartholomew MD [facility] DR [place] [address] 04/05/2024 10:00 AM EST Office Visit Hematology [place] [address] Albino Bartholomew MD [facility] DR [place] [address] documented as of this encounter Visit Diagnoses Not on filedocumented in this encounter Care Teams Administrative Office Clerk Relationship Specialty Start Date End Date Juan Dempsey MD [address] [place] [address] PCP - General Emergency Medicine 08/20/21 documented as of this encounter
--- OUTSIDE RECORDS SUMMARY | 2024-03-09 16:52 | XMS_ITS | Encounter Summary ---
Author Organization [facility] [place] [address] Care Team Providers Care Medical Clerical Assistant Name Role Phone Juan Dempsey MD Primary Care Provider [phone] Reason for Referral * Diagnostic Test (Routine) - Closed Specialty Diagnoses / Procedures Referred By Contac t Referred To Contact Radiology Diagnoses Metastatic renal cell carcinoma to lung, unspecified laterality Procedures CT Chest Abdomen Pelvis w Contrast (Generic) Kelin Carlos APRN [address] [place] [place] [address] DR [place] [address] [facility] [place] [address] Referral ID Status Reason Start Date Expiration Date V isits Requested Visits Authorized [id number] Closed Specialty Service Requested 08/24/2023 02/22/2025 1 1 Reason for Visit * Diagnostic Test (Routine) - Closed Specialty Diagnoses / Procedures Referred By Contac t Referred To Contact Radiology Diagnoses Metastatic renal cell carcinoma to lung, unspecified laterality Procedures CT Chest Abdomen Pelvis w Contrast (Generic) Kelin Carlos APRN [address] [place] [place] [address] DR [place] [address] [facility] [place] [address] Referral ID Status Reason Start Date Expiration Date V isits Requested Visits Authorized [id number] Closed Specialty Service Requested 08/24/2023 02/22/2025 1 1 Encounter Details Date Type Department Care Team (Latest Contact Info) Description 10/08/2023 10:30 AM EDT - 10/08/2023 10:38 AM EDT Hospital [place] [address] Kelin Carlos, AIRPORT OPERATIONS MANAGER [address] [place] [place] [address] DR HEMATOLOGY AND ONCOLOGY [place], [place] [id number] Metastatic renal cell carcinoma to lung, unspecified [...] [facility] Hematology Oncology [address] [place] [address] 03/29/2024 12:[address] [place] [address] Albino Bartholomew MD [facility] DR [place] [address] 04/05/2024 10:00 AM EST Office Visit Hematology [place] [address] Albino Bartholomew MD [facility] DR [place] [address] documented as of this encounter Procedures Procedure Name Priority Date/Time Associated Diagnosis Comments CT CHEST ABDOMEN PELVIS W CONTRAST (GENERIC) Routine 10/08/2023 1:12 PM EDT Metastatic renal cell carcinoma to lung, unspecified laterality POCT CREATININE Routine 10/08/2023 1:07 PM EDT documented in this encounter Results * CT Chest Abdomen Pelvis w Contrast (Generic) (10/08/2023 1:12 PM EDT) WORKSTATION ID [id number] RAD Anatomical Region Laterality Modality Abdomen, Pelvis [...] have questions please contact the health rn coronary care unit that requested your imaging first. [...] who have questions please contactthe health rn coronary care unit that requested your imaging first. Kelin Carlos [...] mLs documented in this encounter Care Teams Medical Clerical Assistant Relationship Specialty Start Date End Date Juan Dempsey MD [address] [place] [address] PCP - General Emergency Medicine 08/20/21 documented as of this encounter
--- OUTSIDE RECORDS SUMMARY | 2024-03-09 16:52 | XMS_ITS | Encounter Summary ---
Author Organization [facility] Address [facility] [place] [address] Care Team Providers Care Control Panel Operator Name Role Phone Juan Dempsey MD Primary Care Provider [phone] Encounter Details Date Type Department Care Team (Late st Contact Info) Description 05/12/2023 Telephone Hematology [place] [address] Mary Salas RN Social History [...] [facility] Hematology Oncology [address] [place] [address] 03/29/2024 12:[address] [place] [address] Albino Bartholomew MD [facility] DR HEMATOLOGY [place] [address] 04/05/2024 10:00 AM EST Office Visit Hematology [place] [address] Albino Bartholomew MD [facility] DR HEMATOLOGY [place] [address] documented as of this encounter Visit Diagnoses Not on filedocumented in this encounter Care Teams Control Panel Operator Relationship Specialty Start Date End Date Juan Dempsey MD [address] [place] [address] PCP - General Emergency Medicine 08/20/21 documented as of this encounter
--- OUTSIDE RECORDS SUMMARY | 2024-03-09 16:52 | XMS_ITS | Encounter Summary ---
Author Organization [facility] Address [facility] [place] [address] Care Team Providers Care Flap Curer Name Role Phone Juan Dempsey MD Primary Care Provider [phone] Encounter Details Date Type Department Care Team (Late st Contact Info) Description 08/26/2023 Telephone Hematology [place] [address] Daxa Arriola RN Social History [...] 8:49 AM EDT Message received from clinical secretary administrative assistant: Faxed request for refill of levothyroxine 75mcg(drug name and dose) received from [facility], fax # [phone]. Additional pertinent information: n/a Review of chart [...] [facility] H[facility] Oncology [address] [place] [address] 03/29/2024 12:[address] [place] [address] Albino Bartholomew MD [facility] [place] [address] 04/05/2024 10:00 AM EST Office Visit Hematology [place] [address] Albino Bartholomew MD [facility] DR [place] [address] documented as of this encounter Visit Diagnoses Not on filedocumented in this encounter Care Teams Flap Curer Relationship Specialty Start Date End Date Juan Dempsey MD [address] [place] [address] PCP - General Emergency Medicine 08/20/21 documented as of this encounter
--- OUTSIDE RECORDS SUMMARY | 2024-03-09 16:52 | XMS_ITS | Encounter Summary ---
Author Organization [facility] Address [facility] [place] [address] Care Team Providers Care Medical Screener Name Role Phone Juan Dempsey MD Primary Care Provider [phone] Encounter Details Date Type Department Care Team (Latest Contact Info) Description 10/07/2023 Specialty [place] [phone] Marisabel Soto, [facility] Refill Coordination - 28 day [...] this encounter Progress Notes * Tru Prakash [facility] - 10/07/2023 8:57 AM EDT Images from the original note were not included. Clinical Management Plan: Refill Specialty Pharmacy Consultation; Tru Prakash [facility] Comprehensive Medication Management (CMM) Mr. [...] Standard Peanut Medication Reconciliation Discrepancies (compared to [facility] med list) -none Review Flowsheet 10/07/2023 8:58 [...] and that [facility] is providing recommendations (summary located at top of note) for provider review and follow up. Tru Prakash RPH 10/07/23 11:23 AM documented in this encounter Plan of Treatment Upcoming Encounters Date Type Department Care Team (Late st Contact Info) Description 03/29/2024 10:30 AM EST Laboratory Appointment Lab at [facility] Hematology Oncology [address] [place] [address] 03/29/2024 12:[address] [place] [place] [address] Albino Bartholomew MD [facility] [place] [address] 04/05/2024 10:00 AM EST Office Visit Hematology [place] [address] Albino Bartholomew MD [facility] [place] [address] documented as of this encounter Visit Diagnoses Not on filedocumented in this encounter Care Teams Medical Screener Relationship Specialty Start Date End Date Juan Dempsey MD [address] [place] [address] PCP - General Emergency Medicine 08/20/21 documented as of this encounter
--- OUTSIDE RECORDS SUMMARY | 2024-03-09 16:52 | XMS_ITS | Encounter Summary ---
Author Organization [facility] Address [facility] [place] [address] Care Team Providers Care Shackler Name Role Phone Juan Dempsey MD Primary Care Provider [phone] Encounter Details Date Type Department Care Team [...] [facility] Hematology Oncology [address] [place] [address] 03/29/2024 12:[address] [place] [address] Albino Bartholomew MD [facility] [address] [place] [address] 04/05/2024 10:00 AM EST Office Visit Hematology [place] [address] Albino Bartholomew MD [facility] [address] [place] [address] documented as of this encounter Visit Diagnoses Not on filedocumented in this encounter Care Teams Shackler Relationship Specialty Start Date End Date Juan Dempsey MD [address] [place] [address] PCP - General Emergency Medicine 08/20/21 documented as of this encounter
--- OUTSIDE RECORDS SUMMARY | 2024-03-09 16:52 | XMS_ITS | Encounter Summary ---
Author Organization [facility] Address [facility] [place] [address] Care Team Providers Care Project Production Engineer Name Role Phone Juan Dempsey MD Primary Care Provider [phone] Reason for Visit * Reason Comments Follow-up Encounter Details Date Type Department Care Team (Late st Contact Info) Description 07/07/2023 2:00 PM EST Office Visit [place]ology [place] [phone] Albino Bartholomew MD [facility] DR HEMATOLOGY [place] [address] Metastatic renal cell carcinoma to lung, unspecified [...] from the original note were not included. [facility] [place] [facility] History of Present Illness: Mr. 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 10/20/21 CXR ([facility]): 10/16/21: IMPRESSION 1. Unexpected finding: New [...] taper. Pt prefers to get labs at [facility]. We'll send orders and I'll ask our dog day care attendant to f/u on results. Advised pt to [...] Cabometyx with minimal side effects. Follows with cloth beamer Dr. 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
--- OUTSIDE RECORDS SUMMARY | 2024-03-09 16:52 | XMS_ITS | Encounter Summary ---
Author Organization [facility] Address [facility] [place] [address] Care Team Providers Care [employer]otive Internet Sales Consultant Name Role Phone Juan Dempsey MD Primary Care Provider [phone] Reason for Visit * Reason Comments Follow-up Encounter Details Date Type Department Care Team (Late st Contact Info) Description 10/08/2023 3:30 PM EDT Office Visit Hematology [place] [address] Albino Bartholomew MD [facility] DR H[place] [address] Metastatic renal cell carcinoma to lung, unspecified [...] from the original note were not included. 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 Pt prefers to get labs at [facility]. We'll send orders and I'll ask our live games dealer to f/u on results. Advised pt to [...] Cabometyx with minimal side effects. Follows with janitor custodian Dr. Pringle, with plans to taper him [...] Bryanna. Will re-check CMP next Wednesday at [facility]. Will ask live games dealer to f/u on results. # Sl worsened [...] [place] [facility] [place] [address] [place] [address] 03/29/2024 12:[address] [place] [address] Albino Bartholomew MD [facility] DR HEMATOLOG[place] [address] 04/05/2024 10:00 AM EST Office Visit Hematology [place] [address] Albino Bartholomew MD [facility] DR HEMATOLOGY [place] [address] Scheduled Orders Name Type Priority Associated Diagnoses [...] T4, free (02/16/2024 11:49 AM EDT) Pathologist [facility] Free T4 1.53 0.93 - 1.70 ng/dL 02/16/2024 1:30 PM EDT [facility] Blood VENOUS BLOOD SPECIMEN / Unknown Venipuncture / Unknown 02/16/2024 11:49 AM EDT 02/16/2024 11:49 AM EDT Albino Bartholomew MD CHEMISTRY ORDERABLES Performing Organization Address City/[facility]/ZIP Co de Phone Number [facility] [place] [address] * TSH (02/16/2024 11:49 AM EDT) [facility] Thyroid Stimulating Hormone 4.13 0.27 - 4.20 mcIU/mL 02/16/2024 1:30 PM EDT [facility] Blood VENOUS BLOOD SPECIMEN / Unknown Venipuncture / Unknown 02/16/2024 11:49 AM EDT 02/16/2024 11:49 AM EDT Albino Bartholomew MD CHEMISTRY ORDERABLES [facility] [place] [address] * (ABNORMAL) Comprehensive metabolic panel (02/16/2024 11:49 AM EDT) [facility] Glucose 97 65 - 199 mg/dL 02/16/2024 1:30 PM EDT [facility] Comment:Glucose Concentratio n >=200 mg/dL plus symptoms is consistent with Diabetes Mellitus. Blood Urea Nitrogen 30(H) 10 - 20 mg/dL 02/16/2024 1:30 PM EDT [facility] Creatinine 1.68(H) 0.80 - 1.50 mg/dL 02/16/2024 1:30 PM [facility] Sodium 140 135 - 145 mMol/L 02/16/2024 1:30 PM [facility] Potassium 4.5 3.5 - 5.0 mMol/L 02/16/2024 1:30 PM [facility] Chloride 105 98 - 107 mMol/L 02/16/2024 1:30 PM [facility] Carbon Dioxide 27 22 - 31 mMol/L 02/16/2024 1:30 PM [facility] Anion Gap 8 5 - 15 mMol/L 02/16/2024 1:30 PM [facility] Calcium 9.0 8.5 - 10.5 mg/dL 02/16/2024 1:30 PM [facility] Protein, Total 7.0 6.1 - 8.0 g/dL 02/16/2024 1:30 PM [facility] Albumin 4.0 3.2 - 5.2 g/dL 02/16/2024 1:30 PM [facility] Aspartate Aminotransferase 25 <=39 unit/L 02/16/2024 1:30 PM [facility] Alanine Aminotransferase 91(H) 0 - 55 unit/L 02/16/2024 1:30 PM [facility] Alkaline Phosphatase 263(H) 40 - 130 unit/L 02/16/2024 1:30 PM [facility] Bilirubin, Total 0.6 <=1.3 mg/dL 02/16/2024 1:30 PM [facility] Est Glomerular Filtration Rate - Male 44 mL/min/1. 73 m?? 02/16/2024 1:30 PM [facility] Comment: This patient's estimated [...] Fasting Status No 02/16/2024 1:30 PM EDT [facility] Blood VENOUS BLOOD SPECIMEN / Unknown Venipuncture / Unknown 02/16/2024 11:49 AM EDT 02/16/2024 11:49 AM EDT Albino Bartholomew MD CHEMISTRY ORDERABLES [facility] [place] [address] * (ABNORMAL) CBC (with Diff) (02/16/2024 11:49 AM EDT) White Blood Cell 6.97 4.00 - 9.50 x10(3)/mc L 02/16/2024 12:11 PM EDT [facility] Red Blood Cell 4.73 4.58 - 5.54 x10(6)/mc L 02/16/2024 12:11 PM EDT [facility] Hemoglobin 14.0 13.7 - 16.5 g/dL 02/16/2024 [facility] Hematocrit 43.6 40.5 - 48.5 % 02/16/2024 12:11 PM EDT [facility] Mean Cell Volume 92.2 82.9 - 93.1 fL 02/16/2024 12:11 PM [facility] Mean Cell Hemoglobin 29.6 27.5 - 32.1 pg 02/16/2024 12:11 PM EDT [facility] Mean Cell Hemoglobin Concentration 32.1 32.0 - 35.7 g/dL 02/16/2024 12:[facility] Platelet 208 145 - 357 x10(3)/mc L 02/16/2024 12:11 PM EDT [facility] Mean Platelet Volume 9.9 7.6 - 12.9 fL 02/16/2024 12:11 PM [facility] RDW Standard Deviation 53.2(H) 36.0 - 45.0 fL 02/16/2024 12:11 PM [facility] RDW coefficient of variation 15.6(H) 11.4 - 13.8 % 02/16/2024 12:11 PM [facility] NRBC% auto 0.0 % 02/16/2024 12:11 PM [facility] NRBC Absolute <0.01 <0.01 x10(3)/mc L 02/16/2024 12:11 PM [facility] Neutrophil % 67.8 % 02/16/2024 12:11 PM [facility] Neutrophil Absolute (ANC) - Automated 4.72 1.70 - 6.10 x10(3)/mc L 02/16/2024 12:11 PM [facility] Lymph % 22.2 % 02/16/2024 12:11 PM [facility] Lymph Absolute 1.55 0.90 - 3.20 x10(3)/mc L 02/16/2024 12:11 PM [facility] Monocyte % 5.6 % 02/16/2024 12:11 PM [facility] Monocyte Absolute 0.39 0.30 - 0.90 x10(3)/mc L 02/16/2024 12:11 PM [facility] Eos % 3.0 % 02/16/2024 12:11 PM [facility] Eos Absolute 0.21 0.00 - 0.40 x10(3)/mc L 02/16/2024 12:11 PM [facility] Basophil % 1.3 % 02/16/2024 12:11 PM [facility] Baso Absolute 0.09 0.00 - 0.10 x10(3)/mc L 02/16/2024 12:11 PM EDT [facility] Immature Gran % 0.1 % 12:11 PM EDT [facility] Immature Gran Absolute <0.04 0.00 - 0.04 x10(3)/mc L 02/16/2024 12:11 PM EDT [facility] Blood VENOUS BLOOD SPECIMEN / Unknown Venipuncture / Unknown 02/16/2024 11:49 AM EDT 02/16/2024 11:49 AM EDT Albino Bartholomew MD HEMATOLOGY ORDERABLE S [facility] [place] [address] * T4, free (02/09/2024 12:11 PM EDT) Free T4 1.57 0.93 - 1.70 ng/dL 02/09/2024 1:08 PM EDT [facility] Blood VENOUS BLOOD SPECIMEN / Unknown Venipuncture / Unknown 02/09/2024 12:11 PM EDT 02/09/2024 12:11 PM EDT Albino Bartholomew MD CHEMISTRY ORDERABLES Performing Organization Address City/[facility]/ZIP Co de Phone Number [facility] [place] [address] * TSH (02/09/2024 12:11 PM EDT) Thyroid Stimulating Hormone 2.38 0.27 - 4.20 mcIU/mL 02/09/2024 1:08 PM EDT [facility] Blood VENOUS BLOOD SPECIMEN / Unknown Venipuncture / Unknown 02/09/2024 12:11 PM EDT 02/09/2024 12:11 PM EDT Albino Bartholomew MD CHEMISTRY ORDERABLES [facility] [place] [address] * (ABNORMAL) Comprehensive metabolic panel (02/09/2024 12:11 PM EDT) Glucose 69 65 - 199 mg/dL 02/09/2024 1:08 PM [facility] Comment:Glucose Concentratio n >=200 mg/dL plus symptoms is consistent with Diabetes Mellitus. Blood Urea Nitrogen 35(H) 10 - 20 mg/dL 02/09/2024 1:08 PM [facility] Creatinine 2.59(H) 0.80 - 1.50 mg/dL 02/09/2024 1:08 PM [facility] Sodium 137 135 - 145 mMol/L 02/09/2024 1:08 PM [facility] Potassium 4.5 3.5 - 5.0 mMol/L 02/09/2024 1:08 PM [facility] Chloride 102 98 - 107 mMol/L 02/09/2024 1:08 PM [facility] Carbon Dioxide 25 22 - 31 mMol/L 02/09/2024 1:08 PM [facility] Anion Gap 10 5 - 15 mMol/L 02/09/2024 1:08 PM [facility] Calcium 8.9 8.5 - 10.5 mg/dL 02/09/2024 1:08 PM [facility] Protein, Total 6.9 6.1 - 8.0 g/dL 02/09/2024 1:08 PM [facility] Albumin 4.2 3.2 - 5.2 g/dL 02/09/2024 1:08 PM [facility] Aspartate Aminotransferase 137(H) <=39 unit/L 02/09/2024 1:08 PM [facility] Alanine Aminotransferase 559(H) 0 - 55 unit/L 02/09/2024 1:08 PM [facility] Alkaline Phosphatase 536(H) 40 - 130 unit/L 02/09/2024 1:08 PM EDT [facility] Bilirubin, Total 0.9 <=1.3 mg/dL 02/09/2024 1:08 PM EDT [facility] Est Glomerular Filtration Rate - Male 26 mL/min/1. 73 m?? 02/09/2024 1:08 PM EDT [facility] [...] Fasting Status No 02/09/2024 1:08 PM EDT [facility] Blood VENOUS BLOOD SPECIMEN / Unknown Venipuncture / Unknown 02/09/2024 12:11 PM EDT 02/09/2024 12:11 PM EDT Albino Bartholomew MD CHEMISTRY ORDERABLES [facility] [place] [address] * (ABNORMAL) CBC (with Diff) (02/09/2024 12:11 PM EDT) White Blood Cell 7.59 4.00 - 9.50 x10(3)/mc L 02/09/2024 12:21 PM EDT [facility] Red Blood Cell 4.95 4.58 - 5.54 x10(6)/mc L 02/09/2024 12:21 PM EDT [facility] Hemoglobin 14.6 13.7 - 16.5 g/dL 02/09/2024 12:21 PM EDT [facility] Hematocrit 44.9 40.5 - 48.5 % 02/09/2024 12:21 PM [facility] Mean Cell Volume 90.7 82.9 - 93.1 fL 02/09/2024 12:21 PM [facility] Mean Cell Hemoglobin 29.5 27.5 - 32.1 pg 02/09/2024 12:21 PM [facility] Mean Cell Hemoglobin Concentration 32.5 32.0 - 35.7 g/dL 02/09/2024 12:21 PM [facility] Platelet 190 145 - 357 x10(3)/mc L 02/09/2024 12:21 PM [facility] Mean Platelet Volume 9.8 7.6 - 12.9 fL 02/09/2024 12:21 PM [facility] RDW Standard Deviation 54.0(H) 36.0 - 45.0 fL 02/09/2024 12:21 PM [facility] RDW coefficient of variation 16.2(H) 11.4 - 13.8 % 02/09/2024 12:21 PM [facility] NRBC% auto 0.0 % 02/09/2024 12:21 PM [facility] NRBC Absolute <0.01 <0.01 x10(3)/mc L 02/09/2024 12:21 PM [facility] Neutrophil % 63.4 % 02/09/2024 12:21 PM [facility] Neutrophil Absolute (ANC) - Automated 4.82 1.70 - 6.10 x10(3)/mc L 02/09/2024 12:21 PM [facility] Lymph % 24.0 % 02/09/2024 12:21 PM [facility] Lymph Absolute 1.82 0.90 - 3.20 x10(3)/mc L 02/09/2024 12:21 PM [facility] Monocyte % 7.8 % 02/09/2024 12:21 PM [facility] Monocyte Absolute 0.59 0.30 - 0.90 x10(3)/mc L 02/09/2024 12:21 PM EDT [facility] Eos % 3.3 % 02/09/2024 12:21 PM EDT [facility] Eos Absolute 0.25 0.00 - 0.40 x10(3)/mc L 02/09/2024 12:21 PM EDT [facility] Basophil % 1.2 % 02/09/2024 12:21 PM EDT [facility] Baso Absolute 0.09 0.00 - 0.10 x10(3)/mc L 02/09/2024 12:21 PM EDT [facility] Immature Gran % 0.3 % 12:21 PM EDT [facility] Immature Gran Absolute <0.04 0.00 - 0.04 x10(3)/mc L 02/09/2024 12:21 PM EDT [facility] Blood VENOUS BLOOD SPECIMEN / Unknown Venipuncture / Unknown 02/09/2024 12:11 PM EDT 02/09/2024 12:11 PM EDT Albino Bartholomew MD HEMATOLOGY ORDERABLE S [facility] [place] [address] * T4, free (12/08/2023 11:56 AM EDT) Free T4 1.58 0.93 - 1.70 ng/dL 12/08/2023 12:43 PM EDT [facility] Blood VENOUS BLOOD SPECIMEN / Unknown Venipuncture / Unknown 12/08/2023 11:56 AM EDT 12/08/2023 11:56 AM EDT Albino Bartholomew MD CHEMISTRY ORDERABLES [facility] [place] [address] * TSH (12/08/2023 11:56 AM EDT) Pathologist [facility] Thyroid Stimulating Hormone 3.07 0.27 - 4.20 mcIU/mL 12/08/2023 12:43 PM EDT [facility] Blood VENOUS BLOOD SPECIMEN / Unknown Venipuncture / Unknown 12/08/2023 11:56 AM EDT 12/08/2023 11:56 AM EDT Albino Bartholomew MD CHEMISTRY ORDERABLES [facility] [place] [address] * (ABNORMAL) Comprehensive metabolic panel (12/08/2023 11:56 AM EDT) Pathologist [facility] Glucose 80 65 - 199 mg/dL 12/08/2023 12:43 PM EDT [facility] Comment:Glucose Concentratio n >=200 mg/dL plus symptoms is consistent with Diabetes Mellitus. Blood Urea Nitrogen 22(H) 10 - 20 mg/dL 12/08/2023 12:43 PM EDT [facility] Creatinine 1.52(H) 0.80 - 1.50 mg/dL 12/08/2023 12:43 PM EDT [facility] Sodium 141 135 - 145 mMol/L 12/08/2023 12:43 PM EDT [facility] Potassium 4.0 3.5 - 5.0 mMol/L 12/08/2023 12:43 PM EDT [facility] Chloride 104 98 - 107 mMol/L 12/08/2023 12:[facility] Carbon Dioxide 29 22 - 31 mMol/L 12/08/2023 12:43 PM EDT [facility] Anion Gap 8 5 - 15 mMol/L 12/08/2023 12:43 PM EDT [facility] Calcium 9.5 8.5 - 10.5 mg/dL 12/08/2023 12:43 PM EDT [facility] Protein, Total 6.8 6.1 - 8.0 g/dL 12/08/2023 12:43 PM EDT [facility] Albumin 4.0 3.2 - 5.2 g/dL 12/08/2023 12:43 PM EDT [facility] Aspartate Aminotransferase 23 <=39 unit/L 12/08/2023 12:43 PM EDT [facility] Alanine Aminotransferase 29 0 - 55 unit/L 12/08/2023 12:43 PM EDT [facility] Alkaline Phosphatase 153(H) 40 - 130 unit/L 12/08/2023 12:43 PM EDT [facility] Bilirubin, Total 0.3 <=1.3 mg/dL 12/08/2023 12:43 PM [facility] Est Glomerular Filtration Rate - Male 50 mL/min/1. 73 m?? 12/08/2023 12:43 PM [facility] Comment: This patient's estimated [...] Fasting Status No 12/08/2023 12:43 PM EDT [facility] Blood VENOUS BLOOD SPECIMEN / Unknown Venipuncture / Unknown 12/08/2023 11:56 AM EDT 12/08/2023 11:56 AM EDT Albino Bartholomew MD CHEMISTRY ORDERABLES [facility] [place] [address] * (ABNORMAL) CBC (with Diff) (12/08/2023 11:56 AM EDT) White Blood Cell 8.63 4.00 - 9.50 x10(3)/mc L 12/08/2023 12:11 PM [facility] Red Blood Cell 4.97 4.58 - 5.54 x10(6)/mc L 12/08/2023 12:11 PM [facility] Hemoglobin 14.6 13.7 - 16.5 g/dL 12/08/2023 12:11 PM [facility] Hematocrit 45.3 40.5 - 48.5 % 12/08/2023 12:11 PM [facility] Mean Cell Volume 91.1 82.9 - 93.1 fL 12/08/2023 12:11 PM [facility] Mean Cell Hemoglobin 29.4 27.5 - 32.1 pg 12/08/2023 12:11 PM [facility] Mean Cell Hemoglobin Concentration 32.2 32.0 - 35.7 g/dL 12/08/2023 12:11 PM [facility] Platelet 202 145 - 357 x10(3)/mc L 12/08/2023 12:11 PM [facility] Mean Platelet Volume 9.7 7.6 - 12.9 fL 12/08/2023 12:11 PM [facility] RDW Standard Deviation 48.9(H) 36.0 - 45.0 fL 12/08/2023 12:11 PM [facility] RDW coefficient of variation 14.7(H) 11.4 - 13.8 % 12/08/2023 12:11 PM [facility] NRBC% auto 0.0 % 12/08/2023 12:11 PM [facility] NRBC Absolute 0.00 0.00 - 0.00 x10(3)/mc L 12/08/2023 12:11 PM [facility] Neutrophil % 69.0 % 12/08/2023 12:11 PM EDT [facility] Neutrophil Absolute (ANC) - Automated 5.96 1.70 - 6.10 x10(3)/mc L 12/08/2023 12:11 PM EDT [facility] Lymph % 20.5 % 12/08/2023 12:11 PM EDT [facility] Lymph Absolute 1.77 0.90 - 3.20 x10(3)/mc L 12/08/2023 12:11 PM EDT [facility] Monocyte % 5.6 % 12/08/2023 12:11 PM EDT [facility] Monocyte Absolute 0.48 0.30 - 0.90 x10(3)/mc L 12/08/2023 12:11 PM EDT [facility] Eos % 3.2 % 12/08/2023 12:11 PM EDT [facility] Eos Absolute 0.28 0.00 - 0.40 x10(3)/mc L 12/08/2023 12:11 PM EDT [facility] Basophil % 1.2 % 12/08/2023 12:11 PM EDT [facility] Baso Absolute 0.10 0.00 - 0.10 x10(3)/mc L 12/08/2023 12:11 PM EDT [facility] Immature Gran % 0.5 % 12:11 PM EDT [facility] Immature Gran Absolute 0.04 0.00 - 0.04 x10(3)/mc L 12/08/2023 12:11 PM EDT [facility] Blood VENOUS BLOOD SPECIMEN / Unknown Venipuncture / Unknown 12/08/2023 11:56 AM EDT 12/08/2023 11:56 AM EDT Albino Bartholomew MD HEMATOLOGY ORDERABLE S [facility] [place] [address] documented in this encounter Visit Diagnoses Diagnosis Metastatic renal cell carcinoma to lung, unspecified laterality- Primary High risk medication use Encounter for long-term (current) use of other medications Multiple lung nodules on CT Abnormal thyroid function test Nonspecific abnormal results of thyroid function study documented in this encounter Care Teams Automotive Internet Sales Consultant Relationship Specialty Start Date End Date Juan Dempsey MD [address] [place] [address] PCP - General Emergency Medicine 08/20/21 documented as of this encounter
--- OUTSIDE RECORDS SUMMARY | 2024-03-09 16:52 | XMS_ITS | Encounter Summary ---
Author Organization [facility] Address [facility] [place] [address] Care Team Providers Care Store Grocery Merchandiser Name Role Phone Juan Dempsey MD Primary Care Provider [phone] Encounter Details Date Type Department Care Team [...] [facility] Hematology Oncology [address] [place] [id number] 03/29/2024 12:[address] [place] [address] Albino Bartholomew MD [facility] DR [place] [address] 04/05/2024 10:00 AM EST Office Visit Hematology [place] [address] Albino Bartholomew MD [facility] DR [place] [address] documented as of this encounter Visit Diagnoses Not on filedocumented in this encounter Care Teams Store Grocery Merchandiser Relationship Specialty Start Date End Date Juan Dempsey MD [address] [place] [address] PCP - General Emergency Medicine 08/20/21 documented as of this encounter
--- OUTSIDE RECORDS SUMMARY | 2024-03-09 16:52 | XMS_ITS | Encounter Summary ---
Author Organization [facility] [place] [address] Care Team Providers Care Practice Performance Manager Name Role Phone Juan Dempsey MD Primary Care Provider [phone] Reason for Referral * Diagnostic Test (Routine) - Closed Specialty Diagnoses / Procedures Referred By Contac t Referred To Contact Radiology Diagnoses Metastatic renal cell carcinoma to lung, unspecified laterality Procedures CT Chest Abdomen Pelvis w Contrast (Generic) Lulu Jolley APRN [facility] [place] [address] [facility] [place] [address] Referral ID Status Reason Start Date Expiration Date V isits Requested Visits Authorized [id number] Closed Specialty Service Requested 06/07/2023 11/30/2024 1 1 Reason for Visit * Diagnostic Test (Routine) - Closed Specialty Diagnoses / Procedures Referred By Burak mcnair Referred To Contact Radiology Diagnoses Metastatic renal cell 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, unspecified laterality Procedures CT Chest Abdomen Pelvis w Contrast (Generic) Lulu Jolley APRN [facility] [place] [address] [facility] [address] Scan [facility] [place] [address] Referral ID Status Reason Start Date Expiration Date V isits Requested Visits Authorized [id number] Closed Specialty Service Requested 06/07/2023 11/30/2024 1 1 Encounter Details Date Type Department Care Team (Late st Contact Info) Description 07/07/2023 8:47 AM EST - 07/07/2023 8:55 AM EST Hospital Encounter CT Scan at [facility] [place] [address] Lulu Jolley APRN [facility] [place] [address] Metastatic renal cell carcinoma to [...] [facility] Hematology Oncology [address] [place] [address] 03/29/2024 12:[address] [place] [address] Albino Bartholomew MD [facility] [place] [address] 04/05/2024 10:00 AM EST Office Visit Hematology and Oncology at [facility] [place] [address] Albino Bartholomew MD [facility] [place] [address] documented as of this encounter Procedures Procedure [...] who have questions please contact the health hospice home care coordinator that requested your imaging first. [...] patients who have questions please contactthe health hospice home care coordinator that requested your imaging first. Electronically signed by: Мария Mtathew MD, [facility]([phone]), at 07/08/2023 10:58 AM Lulu Jolley STRAWHAT BLOCKING OPERATOR IMG CT ORDERABL ES documented in this [...] mLs documented in this encounter Care Teams Practice Performance Manager Relationship Specialty Start Date End Date Juan Dempsey MD [address] [place] [address] PCP - General Emergency Medicine 08/20/21 documented as of this encounter
--- OUTSIDE RECORDS SUMMARY | 2024-03-09 16:52 | XMS_ITS | Encounter Summary ---
Author Organization [facility] Address [facility] [place] [address] Care Team Providers Care Drawing Supervisor Name Role Phone Juan Dempsey MD Primary Care Provider [phone] Reason for Visit * Reason Comments Medication Refill Encounter Details Date Type Department Care Team (Late st Contact Info) Description 07/07/2023 Specialty [place] [phone] Tru Prakash, [facility] Social [...] this encounter Progress Notes * Tru Prakash [facility] - 07/07/2023 8:46 AM EST Clinical Management Plan: Refill Specialty Pharmacy Consultation; Tru Prakash [facility] Comprehensive Medication Management (CMM) Cristofer Tenorio is [...] Peanut Medication Reconciliation Discrepancies (compared to [facility] med list) -none Specialty Pharmacy Refill [...] the appointment and that [facility] is providing recommendations (summary located at top of note) for provider review and follow up. Tru Prakash RPH 07/07/23 8:50 AM documented in this encounter Plan of Treatment Upcoming Encounters Date Type Department Care Team (Late st Contact Info) Description 03/29/2024 10:30 AM EST Laboratory Appointment Lab at [facility] Hematology Oncology [address] [place] [address] 03/29/2024 12:[address] [place] [address] Albino Bartholomew MD [facility] DR HEMATOLOGY [place] [address] 04/05/2024 10:00 AM EST Office Visit Hematology [place] [phone] Albino Bartholomew MD [facility] DR HEMATOLOGY [place] [address] documented as of this encounter Visit Diagnoses Not on filedocumented in this encounter Care Teams Drawing Supervisor Relationship Specialty Start Date End Date Juan Dempsey MD [address] [place] [address] PCP - General Emergency Medicine 08/20/21 documented as of this encounter
--- OUTSIDE RECORDS SUMMARY | 2024-03-09 16:52 | XMS_ITS | Encounter Summary ---
Author Organization [facility] Address [facility] [place] [address] Care Team Providers Care Web Designer Name Role Phone Juan Dempsey MD Primary Care Provider [phone] Reason for Referral * Diagnostic Test (Routine) - Closed Specialty Diagnoses / Procedures Referred By Burak mcnair Referred To Contact Radiology Diagnoses Metastatic renal cell carcinoma to lung, unspecified laterality Procedures CT Chest Abdomen Pelvis w Contrast (Generic) Lulu Jolley APRN [facility] DR HEMATOLOGY [place] [address] [facility] [place] [address] Referral ID Status Reason Start Date Expiration Date V isits Requested Visits Authorized [id number] Closed Specialty Service Requested 06/07/2023 11/30/2024 1 1 Encounter Details Date Type Department Care Team (Late st Contact Info) Description 06/02/2023 2:15 PM EST Office Visit Hematology [place] [address] Lulu Jolley APRN [facility] HEMATOLOGY [place] [address] Metastatic renal cell carcinoma to [...] this encounter Progress Notes * Lulu Jolley, FURNACE CLERK - 06/02/2023 2:15 PM EST Images from the original note were not included. [facility] Oncology History of Present Illness: [...] We'll send orders and I'll ask our bat lathe operator to f/u on results. Advised pt [...] Cabometyx with minimal side effects. Follows with staff electrical engineer Dr. Pringle, with plans to taper him [...] concerns and he agreed. Lulu Jolley DNP, FURNACE CLERK, AGACNP-BC, AOCNP, ACHPN Division of Hematology Oncology-Gastrointestinal Drafting DetailerFinancial Plannerclay washer [facility] documented in this encounter Plan of Treatment Upcoming Encounters Date Type Department Care Team (Late st Contact Info) Description 03/29/2024 10:30 AM EST Laboratory Appointment Lab at [facility] Hematology Oncology [address] [place] [address] 03/29/2024 12:[address] [place] [address] Albino Bartholomew MD [facility] HEMATOLOGY [place] [address] 04/05/2024 10:00 AM EST Office Visit Hematology [place] [address] Albino Bartholomew MD [facility] HEMATOLOGY [place] [address] documented as of this encounter Results * [...] who have questions please contact the health resident care provider that requested your imaging first. ? Electronically signed by: Мария Matthew MD, [facility] ??([phone]), at 07/08/2023 10:58 AM Narrative 07/08/2023 10:58 [...] patients who have questions please contactthe health resident care provider that requested your imaging first. Lulu Jolley APRN IMG CT ORDERABL ES * T4, free (07/07/2023 9:01 AM EST) Free T4 1.47 0.93 - 1.70 ng/dL [facility] Comment: Reference Interval (ng/dL): Females: ??First Trimester: 0.97-1.68 ??Second Trimester: 0.77-1.51 ??Third Trimester: 0.77-1.49 Blood 07/07/2023 9:01 AM EST 07/07/2023 9:14 AM EST Narrative Resulting Agency Comment Spec In Lab Lulu Jolley APRN CHEMISTRY ORDER RADHA Performing Organization Address City/[facility] Co de Phone Number [facility] [place] [address] * TSH (07/07/2023 9:01 AM EST) Thyroid Stimulating Hormone 3.28 0.27 - 4.20 mcIU/mL [facility] Comment: Reference Interval (mcIU/mL): Females: ??First Trimester: 0.23-3.88 ??Second Trimester: 0.22-3.90 ??Third Trimester: 0.44-4.66 Blood 07/07/2023 9:01 AM EST 07/07/2023 9:14 AM EST Narrative Resulting Agency Comment Spec In Lab Lulu Jolley APRN CHEMISTRY ORDER RADHA Performing Organization Address City/[facility] Co de Phone Number [facility] [place] [address] * (ABNORMAL) Comprehensive metabolic panel (non-fasting) (07/07/2023 9:01 AM EST) Glucose 164 65 - 199 mg/dL [facility] Comment:Diabetes: >=200 mg/d L plus symptoms Blood Urea Nitrogen 19 10 - 20 mg/dL [facility] Creatinine 1.60(H) 0.80 - 1.50 mg/dL [facility] Sodium 141 135 - 145 mmol/L [facility] Potassium 3.7 3.5 - 5.0 mmol/L [facility] Comment: Please note: ??Patients with WBC >100,000 may have falsely elevated Potassium levels. ??For accurate Potassium quantification in these patients send serum separator tube (gold top) for subsequent determinations. ??Contact the Clinical Chemistry Laboratory if there are any questions. Chloride 104 98 - 107 mmol/L [facility] Carbon Dioxide 28 22 - 31 mmol/L [facility] Anion Gap 9 5 - 15 mmol/L [facility] Calcium 9.1 8.5 - 10.5 mg/dL [facility] Protein, Total 6.6 6.1 - 8.0 g/dL [facility] Albumin 4.0 3.2 - 5.2 g/dL [facility] Aspartate Aminotransferase 21 0 - 39 unit/L [facility] Alanine Aminotransferase 31 0 - 55 unit/L [facility] Alkaline Phosphatase 149(H) 40 - 130 unit/L [facility] Bilirubin, Total 0.4 0.2 - 1.3 mg/dL [facility] Est Glomerular Filtration Rate 47(L) >=60 mL/min/1. 73 m?? [facility] Comment: This patient's estimated GFR [...] Lab Lulu Jolley [place] [address] documented in this encounter Visit Diagnoses Diagnosis Metastatic renal cell carcinoma to lung, unspecified laterality Metastatic renal cell carcinoma to lung, unspecified laterality documented in this encounter Care Teams Web Designer Relationship Specialty Start Date End Date Juan Dempsey MD [address] [place] [address] PCP - General Emergency Medicine 08/20/21 documented as of this encounter
--- OUTSIDE RECORDS SUMMARY | 2024-03-09 16:52 | XMS_ITS | Encounter Summary ---
Author Organization [facility] Address [facility] [place] [address] Care Team Providers Care Chief Of Staff Doctor Name Role Phone Juan Dempsey MD Primary Care Provider [phone] Encounter Details Date Type Department Care Team [...] [facility] Hematology Oncology [address] [place] [address] 03/29/2024 12:[address] [place] [address] Albino Bartholomew MD [facility] DR HEMATOLOGY [place] [address] 04/05/2024 10:00 AM EST Office Visit Hematology [place] [address] Albino Bartholomew MD [facility] DR HEMATOLOGY [place] [address] documented as of this encounter Visit Diagnoses Not on filedocumented in this encounter Care Teams Chief Of Staff Doctor Relationship Specialty Start Date End Date Juan Dempsey MD [address] [place] [address] PCP - General Emergency Medicine 08/20/21 documented as of this encounter
--- OUTSIDE RECORDS SUMMARY | 2024-03-09 16:52 | XMS_ITS | Encounter Summary ---
Author Organization [facility] Address [facility] [place] [address] Care Team Providers Care Flat Knitter Name Role Phone Juan Dempsey MD Primary Care Provider [phone] Encounter Details Date Type Department Care Team (Latest Contact Info) Description 07/07/2023 8:56 AM EST - 07/07/2023 11:59 PM EST Hospital Encounter H[place]ology [place] [phone] Metastatic renal cell carcinoma to lung, unspecified [...] [facility] H[facility] Oncology [address] [place] [address] 03/29/2024 12:[address] [place] [phone] Albino Bartholomew MD [facility] DR [place] [address] 04/05/2024 10:00 AM EST Office Visit [place]ematology [place] [phone] Albino Bartholomew MD [facility] DR [place] [address] documented as of this encounter Procedures Procedure [...] 9:01 AM EST) Neutrophil % 71.9 % [facility] Neutrophil Absolute 6.26(H) 1.70 - 6.10 x10(3)/ L [facility] Lymph % 18.5 % [facility] Lymphocytes Abs 1.6 0.9 - 3.2 x10(3)/mc L [facility] Monocyte % 3.8 % [facility] Monocyte Abs 0.3 0.3 - 0.9 x10(3)/[facility] Eos % 4.6 % [facility] Eosinophils Abs 0.4 0.0 - 0.4 x10(3)/[facility] Basophil % 1.0 % [facility] Baso Absolute 0.1 0.0 - 0.1 x10(3)/[facility] Immature Gran % 0.20 % [facility] Comment: Immature granulocytes(IG's)percentage and absolute [...] APRN HEMATOLOGY SUNITHA SERRANO Performing Organization Address City/State/[facility] Co de Phone Number [facility] [place] [address] * (ABNORMAL) Hemogram (07/07/2023 9:01 AM EST) White Blood Cell 8.7 4.0 - 9.5 x10(3)/[facility] Red Blood Cell 4.40(L) 4.58 - 5.54 x10(6)/[facility] Hemoglobin 13.6(L) 13.7 - 16.5 g/dL [facility] Hematocrit 40.4(L) 40.5 - 48.5 % [facility] Mean Cell Volume 91.8 82.9 - 93.1 fL [facility] Mean Cell Hemoglobin 30.9 27.5 - 32.1 pg [facility] Mean Cell Hemoglobin Concentration 33.7 32.0 - 35.7 g/dL [facility] Platelet 201 145 - 357 x10(3)/mc L [facility] RDW Standard Deviation 48.4(H) 36.0 - 45.0 fL [facility] RDW coefficient of variation 14.6(H) 11.4 - 13.8 % [facility] Mean Platelet Volume 9.5 7.6 - 12.9 fL [facility] NRBC% auto 0.0 % [facility] NRBC Absolute 0.000 0.000 - 0.000 x10(3)/mc L [facility] Blood 07/07/2023 9:01 AM EST 07/07/2023 9:15 AM EST Narrative Resulting Agency Comment Spec In Lab Lulu Jolley APRN HEMATOLOGY ORDE RABLES Performing Organization Address City/[facility] Co de Phone Number [facility] [place] [address] * T4, free (07/07/2023 9:01 AM EST) Free T4 1.47 0.93 - 1.70 ng/dL [facility] Comment: Reference Interval (ng/dL): Females: ??First Trimester: 0.97-1.68 ??Second Trimester: 0.77-1.51 ??Third Trimester: 0.77-1.49 Blood 07/07/2023 9:01 AM EST 07/07/2023 9:14 AM EST Narrative Resulting Agency Comment Spec In Lab Lulu Jolley APRN CHEMISTRY ORDER RADHA Performing Organization Address City/[facility] Co de Phone Number [facility] [place] [address] * TSH (07/07/2023 9:01 AM EST) Thyroid Stimulating Hormone 3.28 0.27 - 4.20 mcIU/mL [facility] Comment: Reference Interval (mcIU/mL): Females: ??First Trimester: 0.23-3.88 ??Second Trimester: 0.22-3.90 ??Third Trimester: 0.44-4.66 Blood 07/07/2023 9:01 AM EST 07/07/2023 9:14 AM EST Narrative Resulting Agency Comment Spec In Lab Lulu Jolley APRN CHEMISTRY ORDER RADHA [facility] [place] [address] * (ABNORMAL) Comprehensive metabolic panel (non-fasting) (07/07/2023 9:01 AM EST) Glucose 164 65 - 199 mg/dL [facility] Comment:Diabetes: >=200 mg/d L plus symptoms Blood Urea Nitrogen 19 10 - 20 mg/dL [facility] Creatinine 1.60(H) 0.80 - 1.50 mg/dL [facility] Sodium 141 135 - 145 mmol/L [facility] Potassium 3.7 3.5 - 5.0 mmol/L [facility] Comment: Please note: ??Patients with WBC >100,000 may have falsely elevated Potassium levels. ??For accurate Potassium quantification in these patients send serum separator tube (gold top) for subsequent determinations. ??Contact the Clinical Chemistry Laboratory if there are any questions. Chloride 104 98 - 107 mmol/L [facility] Carbon Dioxide 28 22 - 31 mmol/L [facility] Anion Gap 9 5 - 15 mmol/L [facility] Calcium 9.1 8.5 - 10.5 mg/dL [facility] Protein, Total 6.6 6.1 - 8.0 g/dL [facility] Albumin 4.0 3.2 - 5.2 g/dL [facility] Aspartate Aminotransferase 21 0 - 39 unit/L [facility] Alanine Aminotransferase 31 0 - 55 unit/L [facility] Alkaline Phosphatase 149(H) 40 - 130 unit/L [facility] Bilirubin, Total 0.4 0.2 - 1.3 mg/dL [facility] Est Glomerular Filtration Rate 47(L) >=60 mL/min/1. 73 m?? [facility] Comment: This patient's estimated GFR [...] Lab Lulu Jolley APRN CHEMISTRY ORDER RADHA [facility] [place] [address] documented in this encounter Visit Diagnoses Diagnosis Metastatic renal cell carcinoma to lung, unspecified laterality documented in this encounter Care Teams Flat Knitter Relationship Specialty Start Date End Date Juan Dempsey MD [address] [place] [address] PCP - General Emergency Medicine 08/20/21 documented as of this encounter
--- OUTSIDE RECORDS SUMMARY | 2024-03-09 16:52 | XMS_ITS | Encounter Summary ---
Author Organization [facility] Address [facility] [place] [address] Care Team Providers Care Medical Field Representative Name Role Phone Juan Dempsey MD Primary Care Provider [phone] Encounter Details Date Type Department Care Team (Latest Contact Info) Description 08/24/2023 9:54 AM EDT - 08/24/2023 11:59 PM EDT Hospital Encounter Hematology [place] [phone] Metastatic renal cell carcinoma to lung, unspecified [...] [facility] Hematology Oncology [address] [place] [address] 03/29/2024 12:[address] [place] [phone] Albino Bartholomew MD [facility] [address] [place] [address] 04/05/2024 10:00 AM EST Office Visit Hematology [place] [phone] Albino Bartholomew MD [facility] [place] [address] documented as of this encounter Procedures Procedure [...] Bilirubin, Direct 0.1 0.0 - 0.3 mg/dL [facility] Blood 08/24/2023 10:0 1 AM EDT 08/24/2023 10:06 AM EDT Narrative Resulting Agency Comment Spec In Lab Ana Pringle MD CHEMISTRY ORDERABLES [facility] [place] [address] * Differential, Automated (08/24/2023 10:01 AM EDT) Pathologist [facility] Neutrophil % 72.6 % [facility] Neutrophil Absolute 5.87 1.70 - 6.10 x10(3)/[facility] Lymph % 17.7 % [facility] Lymphocytes Abs 1.4 0.9 - 3.2 x10(3)/[facility] Monocyte % 4.0 % [facility] Monocyte Abs 0.3 0.3 - 0.9 x10(3)/[facility] Eos % 4.3 % [facility] Eosinophils Abs 0.4 0.0 - 0.4 x10(3)/[facility] Basophil % 1.2 % [facility] Baso Absolute 0.1 0.0 - 0.1 x10(3)/[facility] Immature Gran % 0.20 % [facility] Comment: Immature granulocytes(IG's)percentage and absolute count will include metamyelocytes, myelocytes, and promyelocytes. Blood smears from CBCs yielding IG's will be scanned manually for concordance. If this scan disagrees with the automated IG or if promyelocytes are noted, a manual differential will be performed. Immature Gran Absolute 0.02 0.00 - 0.04 x10(3)/mcL [facility] Blood 08/24/2023 10:0 1 AM EDT 08/24/2023 10:07 AM EDT Narrative Resulting Agency Comment Spec In Lab Kelin Carlos MEDICAL SCIENTIFIC OFFICER HEMATOLOGY ORDERAB LES [facility] [place] [address] * (ABNORMAL) Hemogram (08/24/2023 10:01 AM EDT) White Blood Cell 8.1 4.0 - 9.5 x10(3)/[facility] Red Blood Cell 4.66 4.58 - 5.54 x10(6)/ L [facility] Hemoglobin 14.3 13.7 - 16.5 g/dL [facility] Hematocrit 42.3 40.5 - 48.5 % [facility] Mean Cell Volume 90.8 82.9 - 93.1 [facility] Mean Cell Hemoglobin 30.7 27.5 - 32.1 pg [facility] Mean Cell Hemoglobin Concentration 33.8 32.0 - 35.7 g/dL [facility] Platelet 185 145 - 357 x10(3)/[facility] RDW Standard Deviation 49.1(H) 36.0 - 45.0 [facility] RDW coefficient of variation 14.7(H) 11.4 - 13.8 % [facility] Mean Platelet Volume 9.8 7.6 - 12.9 [facility] NRBC% auto 0.0 % [facility] NRBC Absolute 0.000 0.000 - 0.000 x10(3)/[facility] Blood 08/24/2023 10:0 1 AM EDT 08/24/2023 10:07 AM EDT Narrative Resulting Agency Comment Spec In Lab Kelin Roach Carlos MEDICAL SCIENTIFIC OFFICER HEMATOLOGY ORDERAB LES [facility] [place] [address] * (ABNORMAL) Comprehensive metabolic panel (non-fasting) (08/24/2023 10:01 AM EDT) Glucose 106 65 - 199 mg/dL [facility] Comment:Diabetes: >=200 mg/d L plus symptoms Blood Urea Nitrogen 24(H) 10 - 20 mg/dL [facility] Creatinine 1.67(H) 0.80 - 1.50 mg/dL [facility] Sodium 141 135 - 145 mmol/L [facility] Potassium 3.3(L) 3.5 - 5.0 mmol/L [facility] Comment: Please note: ??Patients with WBC >100,000 may have falsely elevated Potassium levels. ??For accurate Potassium quantification in these patients send serum separator tube (gold top) for subsequent determinations. ??Contact the Clinical Chemistry Laboratory if there are any questions. Chloride 104 98 - 107 mmol/L [facility] Carbon Dioxide 27 22 - 31 mmol/L [facility] Anion Gap 10 5 - 15 mmol/L [facility] Calcium 8.7 8.5 - 10.5 mg/dL [facility] Protein, Total 6.4 6.1 - 8.0 g/dL [facility] Albumin 3.8 3.2 - 5.2 g/dL [facility] Aspartate Aminotransferase 22 0 - 39 unit/L [facility] Alanine Aminotransferase 27 0 - 55 unit/L [facility] Alkaline Phosphatase 147(H) 40 - 130 unit/L [facility] Bilirubin, Total 0.4 0.2 - 1.3 mg/dL [facility] Est Glomerular Filtration Rate 44(L) >=60 mL/min/1. 73 m?? [facility] Comment: This patient's estimated GFR [...] APRN CHEMISTRY ORDERABL ES Performing Organization Address [facility] de Phone Number [facility] [place] [address] * TSH (08/24/2023 10:01 AM EDT) Thyroid Stimulating Hormone 3.25 0.27 - 4.20 mcIU/mL [facility] Comment: Reference Interval (mcIU/mL): Females: ??First Trimester: 0.23-3.88 ??Second Trimester: 0.22-3.90 ??Third Trimester: 0.44-4.66 Blood 08/24/2023 10:0 1 AM EDT 08/24/2023 10:06 AM EDT Narrative Resulting Agency Comment Spec In Lab Kelin Carlos APRN CHEMISTRY ORDERABL ES Performing Organization Address [facility] de Phone Number [facility] [place] [address] * T4, free (08/24/2023 10:01 AM EDT) Free T4 1.48 0.93 - 1.70 ng/dL [facility] Comment: Reference Interval (ng/dL): Females: ??First Trimester: 0.97-1.68 ??Second Trimester: 0.77-1.51 ??Third Trimester: 0.77-1.49 Blood 08/24/2023 10:0 1 AM EDT 08/24/2023 10:06 AM EDT Narrative Resulting Agency Comment Spec In Lab Kelin Carlos MEDICAL SCIENTIFIC OFFICER CHEMISTRY ORDERABL ES [facility] [place] [address] documented in this encounter Visit Diagnoses Diagnosis Metastatic 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
--- OUTSIDE RECORDS SUMMARY | 2024-03-09 16:52 | XMS_ITS | Encounter Summary ---
Author Organization [facility] Address [facility] [place] [address] Care Team Providers Care Gray Tender Name Role Phone Juan Dempsey MD Primary Care Provider [phone] Encounter Details Date Type Department Care Team (Late st Contact Info) Description 07/05/2023 Telephone Hematology [place] [address] Daxa Arriola RN Social History [...] a refill, 10 days remaining. Going to [place] for 2 weeks in August, wants to make sure he has enough. Discussed planning ahead if he will be out to either get a supply early or have pharmacy deliver to pt in [place]. Pharmacy updated and requested refill on pt's behalf. documented in this encounter Plan of Treatment Upcoming Encounters Date Type Department Care Team (Late st Contact Info) Description 03/29/2024 10:30 AM EST Laboratory Appointment Lab at [facility] [place] [address] [place] [address] 47 03/29/2024 12:[address] [place] [address] Albino Bartholomew MD [facility] DR HEMATOLOGY [place] [address] 04/05/2024 10:00 AM EST Office Visit Hematology [place] [address] Albino Bartholomew MD [facility] DR HEMATOLOGY [place] [address] documented as of this encounter Visit Diagnoses Not on filedocumented in this encounter Care Teams Gray Tender Relationship Specialty Start Date End Date Juan Dempsey MD [address] [place] [address] PCP - General Emergency Medicine 08/20/21 documented as of this encounter
--- OUTSIDE RECORDS SUMMARY | 2024-03-09 16:52 | XMS_ITS | Encounter Summary ---
Author Organization [facility], [facility]–1983 Address [facility] [place] [address] Care Team Providers Care Strap Sewer Name Role Phone Juan Dempsey MD Primary Care Provider [phone] Reason for Referral * Diagnostic Test (Routine) - Closed Specialty Diagnoses / Procedures Referred By Contac t Referred To Contact Radiology Diagnoses Metastatic renal cell carcinoma to lung, unspecified laterality Procedures CT Chest Abdomen Pelvis w Contrast (Generic) Kelin Carlos APRN [address] [place] [address] DR HEMATOLOGY [place] [address] [facility] [place] [address] Referral ID Status Reason Start Date Expiration Date V isits Requested Visits Authorized [id number] Closed Specialty Service Requested 08/24/2023 02/22/2025 1 1 Encounter Details Date Type Department Care Team (Late st Contact Info) Description 08/24/2023 11:30 AM EDT TH Visit (TeleHealth) Hematology [place] [address] Kelin Carlos APRN [address] [place] [address] HEMATOLOGY [place] [address] Metastatic renal cell carcinoma to [...] from the original note were not included. [facility] Oncology History of Present Illness: Mr. Tenorio [...] negative. They are scheduled to go to [place] on [place] to visit dtr who is [...] in the abdomen and pelvis. 10/20/21 CXR ([facility]): 10/16/21: IMPRESSION 1. Unexpected finding: New [...] Pt prefers to get labs at [facility]. We'll send orders and I'll ask our procurement analyst to f/u on results. Advised pt [...] Cabometyx with minimal side effects. Follows with importer exporter Dr. Pringle, with plans to taper him [...] Bryanna. Will re-check CMP next Wednesday at [facility]. Will ask procurement analyst to f/u on results. # Sl worsened [...] 6 weeks -Re-check CMP on 09/28 at [facility] Mr. Tenorio asked appropriate questions and verbalized good understanding of and agreement with the plan. I encouraged him to call anytime with questions or concerns and he agreed. ____ documented in this encounter Plan of Treatment Upcoming Encounters Date Type Department Care Team (Late st Contact Info) Description 03/29/2024 10:30 AM EST Laboratory Appointment Lab at [facility] Hematology Oncology [address] [place] [address] 03/29/2024 12:[address] [place] [place] [address] Albino Bartholomew MD [facility] DR HEMATOLOGY [place] [address] 04/05/2024 10:00 AM EST Office Visit Hematology [place] [address] Albino Bartholomew MD [facility] DR HEMATOLOGY [place] [address] Scheduled Orders Name Type Priority Associated Diagnoses Orde r Schedule Comprehensive metabolic panel (non-fasting) Lab Routine Metastatic renal cell carcinoma to lung, unspecified laterality Expected: 02/23/2024 (Approximate), Expires: 08/23/2024 documented as of this encounter Results * CT Chest Abdomen Pelvis w Contrast (Generic) (10/08/2023 1:12 PM EDT) Sorbent Green WORKSTATION ID [id number] RAD Anatomical Region Laterality Modality Abdomen, Pelvis [...] who have questions please contact the health pet care worker that requested your imaging first. ? Electronically signed by: Tima Zacarias MD, [facility] ([phone]), at 10/08/2023 4:27 PM Narrative 10/08/2023 4:27 [...] patients who have questions please contactthe health pet care worker that requested your imaging first. eKlin Carlos APRN IMG CT ORDERABLES * T4, free (10/08/2023 10:50 AM EDT) Free T4 1.41 0.93 - 1.70 ng/dL [facility] Comment: Reference Interval (ng/dL): Females: ??First Trimester: 0.97-1.68 ??Second Trimester: 0.77-1.51 ??Third Trimester: 0.77-1.49 Blood 10/08/2023 10:5 0 AM EDT 10/08/2023 11:07 AM EDT Narrative Resulting Agency Comment Spec In Lab Kelin P Carlos ELECTROSTATIC PAINT OPERATOR CHEMISTRY ORDERABL ES Performing Organization Address City/[facility] Co de Phone Number [facility] [place] [address] * TSH (10/08/2023 10:50 AM EDT) Thyroid Stimulating Hormone 3.50 0.27 - 4.20 mcIU/mL [facility] Comment: Reference Interval (mcIU/mL): Females: ??First Trimester: 0.23-3.88 ??Second Trimester: 0.22-3.90 ??Third Trimester: 0.44-4.66 Blood 10/08/2023 10:5 0 AM EDT 10/08/2023 11:07 AM EDT Narrative Resulting Agency Comment Spec In Lab Kelin Carlos APRN CHEMISTRY ORDERABL ES Performing Organization Address [facility] Co de Phone Number [facility] [place] [address] documented in this encounter Visit Diagnoses Diagnosis Metastatic renal cell carcinoma to lung, unspecified laterality High risk medication use Encounter for long-term (current) use of other medications Multiple lung nodules on CT Autoimmune hepatitis Hypokalemia Hypopotassemia Renal function impairment Unspecified disorder of kidney and ureter Metastatic renal cell carcinoma to lung, unspecified laterality documented in this encounter Care Teams Strap Sewer Relationship Specialty Start Date End Date Juan Dempsey MD [address] [place] [address] PCP - General Emergency Medicine 08/20/21 documented as of this encounter
--- OUTSIDE RECORDS SUMMARY | 2024-03-09 16:52 | XMS_ITS | Encounter Summary ---
Author Organization [facility] Address [facility] [place] [address] Care Team Providers Care Nib Assembler Name Role Phone Juan Dempsey MD Primary Care Provider [phone] Encounter Details Date Type Department Care Team (Late st Contact Info) Description 08/31/2023 Telephone Hematology [place] [address] Mary Salas RN Social History [...] [facility] Hematology Oncology [address] [place] [address] 03/29/2024 12:[address] [place] [address] Albino Bartholomew MD [facility] [place] [address] 04/05/2024 10:00 AM EST Office Visit Hematology [place] [address] Albino Bartholomew MD [facility] DR [place] [address] documented as of this encounter Visit Diagnoses Not on filedocumented in this encounter Care Teams Nib Assembler Relationship Specialty Start Date End Date Juan Dempsey MD [address] [place] [address] PCP - General Emergency Medicine 08/20/21 documented as of this encounter
--- OUTSIDE RECORDS SUMMARY | 2024-03-09 16:52 | XMS_ITS | Encounter Summary ---
Author Organization [facility] Address [facility] [place] [address] Care Team Providers Care Gis Administrator Name Role Phone Juan Dempsey MD Primary Care Provider [phone] Encounter Details Date Type Department Care Team [...] [facility] Hematology Oncology [address] [place] [address] 03/29/2024 12:[address] [place] [place] [address] Albino Bartholomew MD [facility] DR [place] [address] 04/05/2024 10:00 AM EST Office Visit [place]ematology [place] [address] Albino Bartholomew MD [facility] [address] [place] [address] documented as of this encounter Visit Diagnoses Not on filedocumented in this encounter Care Teams Gis Administrator Relationship Specialty Start Date End Date Juan Dempsey MD [address] [place] [address] PCP - General Emergency Medicine 08/20/21 documented as of this encounter
--- OUTSIDE RECORDS SUMMARY | 2024-03-09 16:52 | XMS_ITS | Encounter Summary ---
Author Organization [facility] Address [facility] [place] [address] Care Team Providers Care Nozzle Tender Name Role Phone Juan Dempsey MD Primary Care Provider [phone] Reason for Visit * Reason Comments Medication Refill Encounter Details Date Type Department Care Team (Late st Contact Info) Description 05/19/2023 Specialty [place] [phone] Tru Prakash, [facility] Social History Tobacco Use [...] this encounter Progress Notes * Tru Prakash [facility] - 05/19/2023 2:51 PM EST Clinical Management Plan: Refill Specialty Pharmacy Consultation; Tru Prakash [facility] Comprehensive Medication Management (CMM) [...] Standard Peanut Medication Reconciliation Discrepancies (compared to [facility] med list) -none Specialty Pharmacy Refill [...] at the appointment and that [facility] is providing recommendations (summary located at top of note) for provider review and follow up. Tru Prakash RPH 05/19/23 3:13 PM documented in this encounter Plan of Treatment Upcoming Encounters Date Type Department Care Team (Late st Contact Info) Description 03/29/2024 10:30 AM EST Laboratory Appointment Lab at [facility] Hematology Oncology [address] [place] [address] 03/29/2024 12:[address] [place] [phone] Albino Bartholomew MD [facility] [place] [address] 04/05/2024 10:00 AM EST Office Visit Hematology [place] [address] Albino Bartholomew MD [facility] DR [place] [address] documented as of this encounter Visit Diagnoses Not on filedocumented in this encounter Care Teams Nozzle Tender Relationship Specialty Start Date End Date Juan Dempsey MD [address] [place] [address] PCP - General Emergency Medicine 08/20/21 documented as of this encounter
--- OUTSIDE RECORDS SUMMARY | 2024-03-09 16:52 | XMS_ITS | Encounter Summary ---
Author Organization [facility] Address [facility] [place] [address] Care Team Providers Care Inside Sales Associate Name Role Phone Juan Dempsey MD Primary Care Provider [phone] Encounter Details Date Type Department Care Team [...] [facility] Hematology Oncology [address] [place] [address] 03/29/2024 12:[address] [place] [address] Albino Bartholomew MD [facility] DR [place] [address] 04/05/2024 10:00 AM EST Office Visit Hematology [place] [address] Albino Bartholomew MD [facility] DR [place] [address] documented as of this encounter Visit Diagnoses Not on filedocumented in this encounter Care Teams Inside Sales Associate Relationship Specialty Start Date End Date Juan Dempsey MD [address] [place] [address] PCP - General Emergency Medicine 08/20/21 documented as of this encounter
--- OUTSIDE RECORDS SUMMARY | 2024-03-09 16:52 | XMS_ITS | Encounter Summary ---
Author Organization [facility] Address [facility] [place] [address] Care Team Providers Care Property Manager Name Role Phone Juan Dempsey MD Primary Care Provider [phone] Encounter Details Date Type Department Care Team (Late st Contact Info) Description 06/03/2023 Orders [place] [address] Ana Pringle MD [facility] [place] [address] Drug induced liver disease Social History Tobacco [...] at [facility] [place] [address] [place] [address] 03/29/2024 12:[address] [place] [address] Albino Bartholomew MD [facility] DR [place] [address] 04/05/2024 10:00 AM EST Office Visit Hematology [place] [address] Albino Bartholomew MD [facility] DR [place] [address] documented as of this encounter Visit Diagnoses Diagnosis Drug induced liver disease documented in this encounter Care Teams Property Manager Relationship Specialty Start Date End Date Juan Dempsey MD [address] [place] [address] PCP - General Emergency Medicine 08/20/21 documented as of this encounter
--- OUTSIDE RECORDS SUMMARY | 2024-03-09 16:53 | XMS_ITS | Encounter Summary ---
Author Organization [facility] Address [facility] [place] [address] Care Team Providers Care Back End Developer Name Role Phone Juan Dempsey MD Primary Care Provider [phone] Encounter Details Date Type Department Care Team (Late st Contact Info) Description 01/13/2023 Orders [place] [address] Ana Pringle MD [facility] [place] [address] Drug-induced liver injury Social History Tobacco Use [...] [facility] [place] Oncology [address] [place] [address] 03/29/2024 12:[address] [place] [place] [address] Albino Bartholomew MD [facility] [place] [address] 04/05/2024 10:00 AM EST Office Visit [place]ology [place] [address] Albino Bartholomew MD [facility] DR [place] [address] documented as of this encounter Visit Diagnoses Diagnosis Drug-induced liver injury documented in this encounter Care Teams Back End Developer Relationship Specialty Start Date End Date Juan Dempsey MD [address] [place] [address] PCP - General Emergency Medicine 08/20/21 documented as of this encounter
--- OUTSIDE RECORDS SUMMARY | 2024-03-09 16:53 | XMS_ITS | Encounter Summary ---
Author Organization [facility] Address [facility] [place] [address] Care Team Providers Care Tacking Machine Operator Name Role Phone Juan Dempsey MD Primary Care Provider [phone] Encounter Details Date Type Department Care Team (Latest Contact Info) Description 03/16/2023 1:22 PM EST - 03/16/2023 11:59 PM EST Hospital Encounter [place]ology [place] [address] Autoimmune hepatitis; Metastatic renal cell carcinoma to [...] [facility] Hematology Oncology [address] [place] [address] 03/29/2024 12:[address] [place] [place] [address] Albino Bartholomew MD [facility] DR HEMATOLOGY [place] [address] 04/05/2024 10:00 AM EST Office Visit [place]ematology [place] [address] Albino Bartholomew MD [facility] DR HEMATOLOGY [place] [address] documented as of this encounter Procedures Procedure [...] Bilirubin, Direct 0.1 0.0 - 0.3 mg/dL [facility] Blood 03/16/2023 1:33 PM EST 03/16/2023 1:47 PM EST Narrative Resulting Agency Comment Spec In Lab Ana Pringle MD CHEMISTRY ORDERABLES [facility] [place] [address] * Differential, Automated (03/16/2023 1:33 PM EST) Neutrophil % 67.8 % [facility] Neutrophil Absolute 5.01 1.70 - 6.10 x10(3)/[facility] Lymph % 20.5 % [facility] Lymphocytes Abs 1.5 0.9 - 3.2 x10(3)/[facility] Monocyte % 5.6 % [facility] Monocyte Abs 0.4 0.3 - 0.9 x10(3)/[facility] Eos % 4.6 % [facility] Eosinophils Abs 0.3 0.0 - 0.4 x10(3)/[facility] Basophil % 1.2 % [facility] Baso Absolute 0.1 0.0 - 0.1 x10(3)/[facility] Immature Gran % 0.30 % [facility] Comment: Immature granulocytes(IG's)percentage and absolute count will include metamyelocytes, myelocytes, and promyelocytes. Blood smears from CBCs yielding IG's will be scanned manually for concordance. If this scan disagrees with the automated IG or if promyelocytes are noted, a manual differential will be performed. Immature Gran Absolute 0.02 0.00 - 0.04 x10(3)/[facility] Blood 03/16/2023 1:33 PM EST 03/16/2023 1:47 PM EST Narrative Resulting Agency Comment Spec In Lab Albino Bartholomew MD HEMATOLOGY ORDERABLE S [facility] [place] [address] * (ABNORMAL) Hemogram (03/16/2023 1:33 PM EST) White Blood Cell 7.4 4.0 - 9.5 x10(3)/mc L [facility] Red Blood Cell 4.28(L) 4.58 - 5.54 x10(6)/mc L [facility] Hemoglobin 13.9 13.7 - 16.5 g/dL [facility] Hematocrit 41.1 40.5 - 48.5 % [facility] Mean Cell Volume 96.0(H) 82.9 - 93.1 fL [facility] Mean Cell Hemoglobin 32.5(H) 27.5 - 32.1 pg [facility] Mean Cell Hemoglobin Concentration 33.8 32.0 - 35.7 g/dL [facility] Platelet 196 145 - 357 x10(3)/mc L [facility] RDW Standard Deviation 49.3(H) 36.0 - 45.0 fL [facility] RDW coefficient of variation 13.8 11.4 - 13.8 % [facility] Mean Platelet Volume 9.6 7.6 - 12.9 fL [facility] NRBC% auto 0.0 % [facility] NRBC Absolute 0.000 0.000 - 0.000 x10(3)/mc L [facility] Blood 03/16/2023 1:33 PM EST 03/16/2023 1:47 PM EST Narrative Resulting Agency Comment Spec In Lab Albino Bartholomew MD HEMATOLOGY ORDERABLE S Performing Organization Address City/[facility]/ZIP Co de Phone Number [facility] [place] [address] * (ABNORMAL) Comprehensive metabolic panel (non-fasting) (03/16/2023 1:33 PM EST) Glucose 124 65 - 199 mg/dL [facility] Comment:Diabetes: >=200 mg/d L plus symptoms Blood Urea Nitrogen 15 10 - 20 mg/dL [facility] Creatinine 1.49 0.80 - 1.50 mg/dL [facility] Sodium 141 135 - 145 mmol/L [facility] Potassium 3.6 3.5 - 5.0 mmol/L [facility] Comment: Please note: ??Patients with WBC >100,000 may have falsely elevated Potassium levels. ??For accurate Potassium quantification in these patients send serum separator tube (gold top) for subsequent determinations. ??Contact the Clinical Chemistry Laboratory if there are any questions. Chloride 103 98 - 107 mmol/L [facility] Carbon Dioxide 27 22 - 31 mmol/L [facility] Anion Gap 11 5 - 15 mmol/L [facility] Calcium 8.9 8.5 - 10.5 mg/dL [facility] Protein, Total 6.1 6.1 - 8.0 g/dL [facility] Albumin 4.1 3.2 - 5.2 g/dL [facility] Aspartate Aminotransferase 46(H) 0 - 39 unit/L [facility] Alanine Aminotransferase 74(H) 0 - 55 unit/L [facility] Alkaline Phosphatase 123 40 - 130 unit/L [facility] Bilirubin, Total 0.3 0.2 - 1.3 mg/dL [facility] Est Glomerular Filtration Rate 51(L) >=60 mL/min/1. 73 m?? [facility] Comment: This patient's estimated GFR was [...] In Lab Albino Bartholomew MD CHEMISTRY ORDERABLES [facility] [place] [address] * (ABNORMAL) TSH (03/16/2023 1:33 PM EST) Thyroid Stimulating Hormone 5.27(H) 0.27 - 4.20 mcIU/mL [facility] Comment: Reference Interval (mcIU/mL): Females: ??First Trimester: 0.23-3.88 ??Second Trimester: 0.22-3.90 ??Third Trimester: 0.44-4.66 Blood 03/16/2023 1:33 PM EST 03/16/2023 1:47 PM EST Narrative Resulting Agency Comment Spec In Lab Albino Bartholomew MD CHEMISTRY ORDERABLES Performing Organization Address [facility] Co de Phone Number [facility] [place] [address] * T4, free (03/16/2023 1:33 PM EST) Free T4 1.21 0.93 - 1.70 ng/dL [facility] Comment: Reference Interval (ng/dL): Females: ??First Trimester: 0.97-1.68 ??Second Trimester: 0.77-1.51 ??Third Trimester: 0.77-1.49 Blood 03/16/2023 1:33 PM EST 03/16/2023 1:47 PM EST Narrative Resulting Agency Comment Spec In Lab Albino Bartholomew MD CHEMISTRY ORDERABLES Performing Organization Address 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
--- OUTSIDE RECORDS SUMMARY | 2024-03-09 16:53 | XMS_ITS | Encounter Summary ---
Author Organization [facility] Address [facility] [place] [address] Care Team Providers Care Chief Design Drafter Name Role Phone Juan eDmpsey MD Primary Care Provider [phone] Encounter Details Date Type Department Care Team (Late st Contact Info) Description 01/13/2023 Orders [place] [phone] Judy Gonzalez, RN Autoimmune hepatitis Social History [...] [facility] On[facility] [address] [place] [address] 03/29/2024 12:[address] [place] [address] Albino Bartholomew MD [facility] [place] [address] 04/05/2024 10:00 AM EST Office Visit Hematology [place] [address] Albino Bartholomew MD [facility] [place] [address] documented as of this encounter Visit Diagnoses Diagnosis Autoimmune hepatitis documented in this encounter Care Teams Chief Design Drafter Relationship Specialty Start Date End Date Juan Dempsey MD [address] [place] [address] PCP - General Emergency Medicine 08/20/21 documented as of this encounter
--- OUTSIDE RECORDS SUMMARY | 2024-03-09 16:53 | XMS_ITS | Encounter Summary ---
Author Organization [facility] Address [facility] [place] [address] Care Team Providers Care Supervisor Mill Name Role Phone Juan Dempsey MD Primary Care Provider [phone] Encounter Details Date Type Department Care Team [...] [facility] Hematology Oncology [address] [place] [address] 03/29/2024 12:[address] [place] [address] Albino Bartholomew MD [facility] DR HEMATOLOGY [place] [address] 04/05/2024 10:00 AM EST Office Visit Hematology [place] [address] Albino Bartholomew MD [facility] DR HEMATOLOGY [place] [address] documented as of this encounter Visit Diagnoses Not on filedocumented in this encounter Care Teams Supervisor Mill Relationship Specialty Start Date End Date Juan Dempsey MD [address] [place] [address] PCP - General Emergency Medicine 08/20/21 documented as of this encounter
--- OUTSIDE RECORDS SUMMARY | 2024-03-09 16:53 | XMS_ITS | Encounter Summary ---
Author Organization [facility] Address [facility] [place] [address] Care Team Providers Care Airline Stewardess Name Role Phone Juan Dempsey MD Primary Care Provider [phone] Reason for Visit * Reason Comments Medication Management Medication Refill Encounter Details Date Type Department Care Team (Late st Contact Info) Description 01/11/2023 Specialty [place] [phone] Tru Prakash, [facility] Social History Tobacco Use Types [...] [facility] Hematology Oncology [address] [place] [address] 03/29/2024 12:[address] [place] [address] Albino Bartholomew MD [facility] [place]AT[place] [address] 04/05/2024 10:00 AM EST Office Visit Hematology [place] [address] Albino Bartholomew MD [facility] DR [place]AT[place] [address] documented as of this encounter Visit Diagnoses Not on filedocumented in this encounter Care Teams Airline Stewardess Relationship Specialty Start Date End Date Juan Dempsey MD [address] [place] [address] PCP - General Emergency Medicine 08/20/21 documented as of this encounter
--- OUTSIDE RECORDS SUMMARY | 2024-03-09 16:53 | XMS_ITS | Encounter Summary ---
Author Organization [facility] Address [facility] [place] [address] Care Team Providers Care Regional Medical Director Name Role Phone Juan Dempsey MD Primary Care Provider [phone] Reason for Visit * Reason Onset Date Comments Diarrhea 04/06/2023 Update from 04/02 . Encounter Details Date Type Department Care Team (Late st Contact Info) Description 04/06/2023 Telephone Hematology [place] [address] Jacquelyn Funes RN Diarrhea (Update [...] 04/06/2023 8:57 AM EST ----- Regarding: update [phone] - patient called - has been off his Cabametyx and made a dietary change - would like to report his update on his diarrhea documented in this encounter Plan of Treatment Upcoming Encounters Date Type Department Care Team (Late st Contact Info) Description 03/29/2024 10:30 AM EST Laboratory Appointment Lab at [facility] Hematology Oncology [address] [place] [address] 03/29/2024 12:[address] [place] [address] Albino Bartholomew MD [facility] DR [place] [address] 04/05/2024 10:00 AM EST Office Visit Hematology [place] [address] Albino Bartholomew MD [facility] DR [place] [address] documented as of this encounter Visit Diagnoses Not on filedocumented in this encounter Care Teams Regional Medical Director Relationship Specialty Start Date End Date Juan Dempsey MD [address] [place] [address] PCP - General Emergency Medicine 08/20/21 documented as of this encounter
--- OUTSIDE RECORDS SUMMARY | 2024-03-09 16:53 | XMS_ITS | Encounter Summary ---
Author Organization [facility] Address [facility] [place] [address] Care Team Providers Care Merchandiser Name Role Phone Juan Dempsey MD Primary Care Provider [phone] Encounter Details Date Type Department Care Team (Late st Contact Info) Description 04/07/2023 Telephone Hematology [place] [address] Daxa Arriola RN Social History [...] AM EST Message received from clinical secretary board of commissioners: Cristofer called in regards to restarting his Cabometyx. Did not hear back from Rachell yesterday. Pleasecall [phone] P: Per Albino Bartholomew MD, pt to hold Cabometyx tomorrow. If diarrhea remains resolved, pt may restart Cabometyx on the following day, Wednesday. Pt aware that he may restart without calling office ifhe has no new or worsening symptoms and has had a solid brown bowel movement. Pt advised to call office at [phone] with any worsening symptoms or concerns. Pt verbalized understanding and agreem ent with plan. documented in this encounter Plan of Treatment Upcoming Encounters Date Type Department Care Team (Late st Contact Info) Description 03/29/2024 10:30 AM EST Laboratory Appointment Lab at [facility] Hematology Oncology [address] [place] [address] 03/29/2024 12:[address] [place] [address] [facility] HEMATOLOGY [place] [address] 04/05/2024 10:00 AM EST Office Visit Hematology [place] [address] [facility] DR HEMATOLOGY [place] [address] documented as of this encounter Visit Diagnoses Not on filedocumented in this encounter Care Teams Merchandiser Relationship Specialty Start Date End Date Juan Dempsey MD [address] [place] [address] PCP - General Emergency Medicine 08/20/21 documented as of this encounter
--- OUTSIDE RECORDS SUMMARY | 2024-03-09 16:53 | XMS_ITS | Encounter Summary ---
Author Organization [facility] Address [facility] [place] [address] Care Team Providers Care Hand Embroiderer Name Role Phone Juan Dempsey MD Primary Care Provider [phone] Reason for Visit * Reason Comments Specialty Refill Management cabometyx Encounter Details Date Type Department Care Team (Late st Contact Info) Description 04/14/2023 Specialty [place] [phone] Marci Angel, [facility] Social History Tobacco Use Types [...] Standard Peanut Medication Reconciliation Discrepancies (compared to [facility] med list) No Specialty Pharmacy Refill [...] [facility] Hematology Oncology [address] [place] [address] 03/29/2024 12:[address] [place] [address] Albino Bartholomew MD [facility] DR [place] [address] 04/05/2024 10:00 AM EST Office Visit Hematology [place] [address] Albino Bartholomew MD [facility] DR [place] [address] documented as of this encounter Visit Diagnoses Not on filedocumented in this encounter Care Teams Hand Embroiderer Relationship Specialty Start Date End Date Juan Dempsey MD [address] [place] [address] PCP - General Emergency Medicine 08/20/21 documented as of this encounter
--- OUTSIDE RECORDS SUMMARY | 2024-03-09 16:53 | XMS_ITS | Encounter Summary ---
Author Organization [facility] Address [facility] [place] [address] Care Team Providers Care Rate Analyst Name Role Phone Juan Dempsey MD Primary Care Provider [phone] Encounter Details Date Type Department Care Team [...] [facility] Hematology Oncology [address] [place] [address] 03/29/2024 12:[address] [place] [address] Albino Bartholomew MD [facility] DR HEMATOLOGY [place] [address] 04/05/2024 10:00 AM EST Office Visit Hematology [place] [address] Albino Bartholomew MD [facility] DR HEMATOLOGY [place] [address] documented as of this encounter Visit Diagnoses Not on filedocumented in this encounter Care Teams Rate Analyst Relationship Specialty Start Date End Date Juan Dempsey MD [address] [place] [address] PCP - General Emergency Medicine 08/20/21 documented as of this encounter
--- OUTSIDE RECORDS SUMMARY | 2024-03-09 16:53 | XMS_ITS | Encounter Summary ---
Author Organization [facility] Address [facility] [place] [address] Care Team Providers Care Pole Framer Machine Name Role Phone Juan Dempsey MD Primary Care Provider [phone] Reason for Visit * Reason Comments Specialty Refill Management Encounter Details Date Type Department Care Team (Late st Contact Info) Description 03/11/2023 [place]ty [place] [phone] Reshma Gar, [facility] Social History Tobacco Use Types Packs/Day Years [...] encounter Progress Notes * Reshma Gar [facility] - 03/11/2023 4:17 PM EST Clinical Management Plan: Refill Specialty Pharmacy Consultation; Reshma Gar [facility] Comprehensive Medication Management (CMM) Cristofer Stevensnaida Mr. [...] Standard Peanut Medication Reconciliation Discrepancies (compared to [facility] med list) No Specialty Pharmacy Refill [...] current drug regimen were made. Reshma Gar [facility] 03/11/23 4:21 PM documented in this encounter Plan of Treatment Upcoming Encounters Date Type Department Care Team (Late st Contact Info) Description 03/29/2024 10:30 AM EST Laboratory Appointment Lab at [facility] Hematology Oncology [address] [place] [address] 03/29/2024 12:[address] [place] [address] Albino Bartholomew MD [facility] DR HEMATOLOGY [place] [address] 04/05/2024 10:00 AM EST Office Visit [place] [address] Albino Bartholomew MD [facility] DR HEMATOLOGY [place] [address] documented as of this encounter Visit Diagnoses Not on filedocumented in this encounter Care Teams Pole Framer Machine Relationship Specialty Start Date End Date Juan Dempsey MD [address] [place] [address] PCP - General Emergency Medicine 08/20/21 documented as of this encounter
--- OUTSIDE RECORDS SUMMARY | 2024-03-09 16:53 | XMS_ITS | Encounter Summary ---
Author Organization [facility] Address [facility] [place] [address] Care Team Providers Care Warp Dyeing Vat Tender Name Role Phone Juan Dempsey MD Primary Care Provider [phone] Encounter Details Date Type Department Care Team [...] [facility] Hematology Oncology [address] [place] [address] 03/29/2024 12:[address] [place] [place] [address] Albino Bartholomew MD [facility] DR HEMATOLOGY [place] [address] 04/05/2024 10:00 AM EST Office Visit [place] [address] Albino Bartholomew MD [facility] DR HEMATOLOGY [place] [address] documented as of this encounter Visit Diagnoses Not on filedocumented in this encounter Care Teams Warp Dyeing Vat Tender Relationship Specialty Start Date End Date Juan Dempsey MD [address] [place] [address] PCP - General Emergency Medicine 08/20/21 documented as of this encounter
--- OUTSIDE RECORDS SUMMARY | 2024-03-09 16:53 | XMS_ITS | Encounter Summary ---
Author Organization [facility] Address [facility] [place] [address] Care Team Providers Care Nitric Acid Concentrator Operator Name Role Phone Juan Dempsey MD Primary Care Provider [phone] Reason for Visit * Reason Comments Follow-up Encounter Details Date Type Department Care Team (Late st Contact Info) Description 03/17/2023 8:00 AM EST Office Visit [place] [phone] Albino Costello MD [facility] [place] [address] Metastatic renal cell carcinoma to lung, unspecified [...] from the original note were not included. [facility] History of Present Illness: Mr. Tenorio [...] by his , Emily. 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 10/20/21 CXR ([facility]): 10/16/21: IMPRESSION 1. Unexpected finding: New 6 [...] taper. Pt prefers to get labs at [facility]. We'll send orders and I'll ask our time motion analyst to f/u on results. Advised pt [...] Cabometyx with minimal side effects. Follows with director nicu Dr. Pringle, with plans to taper him [...] [facility] [place] [place] [address] [place] [address] 03/29/2024 12:[address] [place] [place] [address] Albino Costello MD [facility] [place] [address] 04/05/2024 10:00 AM EST Office Visit [place] [address] Albino Costello MD [facility] [place] [address] documented as of this encounter Visit Diagnoses Diagnosis Metastatic renal cell carcinoma to lung, unspecified laterality High risk medication use Encounter for long-term (current) use of other medications Abnormal thyroid function test Nonspecific abnormal results of thyroid function study Multiple lung nodules on CT Autoimmune hepatitis documented in this encounter Care Teams Nitric Acid Concentrator Operator Relationship Specialty Start Date End Date Juan Dempsey MD [address] [place] [address] PCP - General Emergency Medicine 08/20/21 documented as of this encounter
--- OUTSIDE RECORDS SUMMARY | 2024-03-09 16:53 | XMS_ITS | Encounter Summary ---
Author Organization [facility] Address [facility] [place] [address] Care Team Providers Care Physician Vice President Name Role Phone Juan Dempsey MD Primary Care Provider [phone] Encounter Details Date Type Department Care Team (Late st Contact Info) Description 03/01/2023 Orders [place] [phone] Judy Gonzalez, RN Social History Tobacco Use [...] [facility] Hemat[facility] Oncology [address] [place] [address] 03/29/2024 12:[address] [place] [address] Albino Bartholomew MD [facility] DR [place]EMAT[place] [address] 04/05/2024 10:00 AM EST Office Visit Hematology [place] [address] Albino Bartholomew MD [facility] DR HEMATOLOGY [place] [address] documented as of this encounter Visit Diagnoses Not on filedocumented in this encounter Care Teams Physician Vice President Relationship Specialty Start Date End Date Juan Dempsey MD [address] [place] [address] PCP - General Emergency Medicine 08/20/21 documented as of this encounter
--- OUTSIDE RECORDS SUMMARY | 2024-03-09 16:53 | XMS_ITS | Encounter Summary ---
Author Organization [facility] Address [facility] [place] [address] Care Team Providers Care Sales Mgr Name Role Phone Juan Dempsey MD Primary Care Provider [phone] Encounter Details Date Type Department Care Team [...] [facility] Hematology Oncology [address] [place] [address] 03/29/2024 12:[address] [place] [address] Albino Bartholomew MD [facility] DR [place] [address] 04/05/2024 10:00 AM EST Office Visit Hematology [place] [address] Albino Bartholomew MD [facility] DR [place] [address] documented as of this encounter Visit Diagnoses Not on filedocumented in this encounter Care Teams Sales Mgr Relationship Specialty Start Date End Date Juan Dempsey MD [address] [place] [address] PCP - General Emergency Medicine 08/20/21 documented as of this encounter
--- OUTSIDE RECORDS SUMMARY | 2024-03-09 16:53 | XMS_ITS | Encounter Summary ---
Author Organization [facility] [place] [address] Care Team Providers Care Porcelain Technician Name Role Phone Juan Dempsey MD Primary Care Provider [phone] Reason for Referral * Diagnostic Test (Routine) - Closed Specialty Diagnoses / Procedures Referred By Contac t Referred To Contact Radiology Diagnoses Metastatic renal cell carcinoma to lung, unspecified laterality Multiple lung nodules on CT Procedures CT Chest Abdomen Pelvis w Contrast (Generic) Albino Bartholomew MD [facility] DR [place] [address] [place] [address] Referral ID Status Reason Start Date Expiration Date V isits Requested Visits Authorized [id number] Closed Specialty Service Requested 02/22/2023 08/23/2024 1 1 Reason for Visit * Diagnostic Test (Routine) - Closed Specialty Diagnoses / Procedures Referred By Contac t Referred To Contact Radiology Diagnoses Metastatic renal cell carcinoma to lung, unspecified laterality Multiple lung nodules on CT Procedures CT Chest Abdomen Pelvis w Contrast (Generic) Albino Bartholomew MD [facility] [place] [address] [place] [address] Referral ID Status Reason Start Date Expiration Date V isits Requested Visits Authorized [id number] Closed Specialty Service Requested 02/22/2023 08/23/2024 1 1 Encounter Details Date Type Department Care Team (Latest Contact Info) Description 03/16/2023 12:45 PM EST - 03/16/2023 1:21 PM EST Hospital Encounter CT Scan at [facility] [place] [address] Albino Bartholomew MD [facility] DR [place] [address] Metastatic renal cell carcinoma to [...] Lab at [facility] Hematology Oncology [address] [place] [address] 03/29/2024 12:[address] [place] [address] Albino Bartholomew MD [facility] DR [place] [address] 04/05/2024 10:00 AM EST Office Visit Hematology and Oncology at [facility] [place] [address] Albino Bartholomew MD [facility] DR [place] [address] documented as of this encounter Procedures Procedure [...] questions please contact the health child care center administrator that requested your imaging first. ? Narrative [...] be a cyst, pseudocyst, or sidebranch IPMN. [id number] MRI is recommended versus attention on planned follow-up studies. Thank you for letting us participate in the care of this patient. If youare a health care provider and have any questions regarding this report,please contact the number below. For patients who have questions please contactthe health child care center administrator that requested your imaging first. Albino Bartholomew MD [facility] CT ORDERABLES documented in this encounter Visit [...] mLs documented in this encounter Care Teams Porcelain Technician Relationship Specialty Start Date End Date Juan Dempsey MD [address] [place] [address] PCP - General Emergency Medicine 08/20/21 documented as of this encounter
--- OUTSIDE RECORDS SUMMARY | 2024-03-09 16:53 | XMS_ITS | Encounter Summary ---
Author Organization [facility] Address [facility] [place] [address] Care Team Providers Care Warehouse General Laborer Name Role Phone Juan Dempsey MD Primary Care Provider [phone] Reason for Visit * Reason Comments Specialty Pharmacy Review Cabometyx 20mg tablet Encounter Details Date Type Department Care Team (Late st Contact Info) Description 02/10/2023 Specialty [place] [phone] Kelin Chong, [facility] Social History Tobacco Use Types Packs/Day [...] Chong - 02/10/2023 11:59 PM EDT The [facility] has completed a benefits investigation for Cristofer Tenorio to review their eligibility to fill at [facility]. Per patient's medication list they are prescribedCabometyx 20mg tablet and the medication is currently filled through the [facility] The patient is currently filling the medication through Specialty Pharmacy with a $10.35 copay. PA approved until 2025 documented in this encounter Plan of Treatment Upcoming Encounters Date Type Department Care Team (Late st Contact Info) Description 03/29/2024 10:30 AM EST Laboratory Appointment Lab at [facility] Hematology Oncology [address] [place] [address] 03/29/2024 12:[address] [place] [address] Albino Bartholomew MD [facility] DR HEMATOLOGY [place] [address] 04/05/2024 10:00 AM EST Office Visit Hematology [place] [address] Albino Bartholomew MD [facility] DR HEMATOLOGY [place] [address] documented as of this encounter Visit Diagnoses Not on filedocumented in this encounter Care Teams Warehouse General Laborer Relationship Specialty Start Date End Date Juan Dempsey MD [address] [place] [address] PCP - General Emergency Medicine 08/20/21 documented as of this encounter
--- OUTSIDE RECORDS SUMMARY | 2024-03-09 16:53 | XMS_ITS | Encounter Summary ---
Author Organization [facility] Address [facility] [place] [address] Care Team Providers Care Pitch Gatherer Name Role Phone Juan Dempsey MD Primary Care Provider [phone] Encounter Details Date Type Department Care Team (Latest Contact Info) Description 04/28/2023 1:42 PM EST - 04/28/2023 11:59 PM EST Hospital Encounter Hematology [place] [phone] Metastatic renal cell carcinoma to lung, unspecified [...] [facility] H[facility]ology Oncology [address] [place] [address] 03/29/2024 12:[address] [place] [phone] Albino Bartholomew MD [facility] [place] [address] 04/05/2024 10:00 AM EST Office Visit Hematology [place] [phone] Albino Bartholomew MD [facility] [place] [address] documented as of this encounter Procedures Procedure [...] Bilirubin, Direct 0.1 0.0 - 0.3 mg/dL [facility] Blood 04/28/2023 1:47 PM EST 04/28/2023 1:53 PM EST Narrative Resulting Agency Comment Spec In Lab Ana Pringle MD CHEMISTRY ORDERABLES [facility] [place] [address] * Differential, Automated (04/28/2023 1:47 PM EST) Neutrophil % 65.7 % [facility] Neutrophil Absolute 4.70 1.70 - 6.10 x10(3)/[facility] LABORAT[facility] Lymph % 22.1 % [facility] Lymphocytes Abs 1.6 0.9 - 3.2 x10(3)/[facility] LABOR[facility] Monocyte % 5.6 % [facility] Monocyte Abs 0.4 0.3 - 0.9 x10(3)/[facility] Eos % 5.2 % [facility] Eosinophils Abs 0.4 0.0 - 0.4 x10(3)/[facility] Basophil % 1.3 % [facility] Baso Absolute 0.1 0.0 - 0.1 x10(3)/[facility]OR[facility]ORY Immature Gran % 0.10 % [facility] Comment: Immature granulocytes(IG's)percentage and absolute count will include metamyelocytes, myelocytes, and promyelocytes. Blood smears from CBCs yielding IG's will be scanned manually for concordance. If this scan disagrees with the automated IG or if promyelocytes are noted, a manual differential will be performed. Immature Gran Absolute 0.01 0.00 - 0.04 x10(3)/[facility] Blood 04/28/2023 1:47 PM EST 04/28/2023 1:53 PM EST Narrative Resulting Agency Comment Spec In Lab Albino Bartholomew MD HEMATOLOGY ORDERABLE S Performing Organization Address City/[facility]/ZIP Co de Phone Number [facility] [place] [address] * (ABNORMAL) Hemogram (04/28/2023 1:47 PM EST) White Blood Cell 7.2 4.0 - 9.5 x10(3)/mc L [facility] Red Blood Cell 4.29(L) 4.58 - 5.54 x10(6)/mc L [facility] Hemoglobin 13.6(L) 13.7 - 16.5 g/dL [facility] Hematocrit 40.4(L) 40.5 - 48.5 % [facility] Mean Cell Volume 94.2(H) 82.9 - 93.1 fL [facility] Mean Cell Hemoglobin 31.7 27.5 - 32.1 pg [facility] Mean Cell Hemoglobin Concentration 33.7 32.0 - 35.7 g/dL [facility] Platelet 201 145 - 357 x10(3)/mc L [facility] RDW Standard Deviation 47.8(H) 36.0 - 45.0 fL [facility] RDW coefficient of variation 13.9(H) 11.4 - 13.8 % [facility] Mean Platelet Volume 9.6 7.6 - 12.9 fL [facility] NRBC% auto 0.0 % [facility] NRBC Absolute 0.000 0.000 - 0.000 x10(3)/mc L [facility] Blood 04/28/2023 1:47 PM EST 04/28/2023 1:53 PM EST Narrative Resulting Agency Comment Spec In Lab Albino Bartholomew MD HEMATOLOGY ORDERABLE S Performing Organization Address City/[facility]/ZIP Co de Phone Number [facility] [place] [address] * (ABNORMAL) Comprehensive metabolic panel (non-fasting) (04/28/2023 1:47 PM EST) Glucose 92 65 - 199 mg/dL [facility] Comment:Diabetes: >=200 mg/d L plus symptoms Blood Urea Nitrogen 23(H) 10 - 20 mg/dL [facility] Creatinine 1.81(H) 0.80 - 1.50 mg/dL [facility] Sodium 142 135 - 145 mmol/L [facility] Potassium 4.2 3.5 - 5.0 mmol/L [facility] Comment: Please note: ??Patients with WBC >100,000 may have falsely elevated Potassium levels. ??For accurate Potassium quantification in these patients send serum separator tube (gold top) for subsequent determinations. ??Contact the Clinical Chemistry Laboratory if there are any questions. Chloride 105 98 - 107 mmol/L [facility] Carbon Dioxide 27 22 - 31 mmol/L [facility] Anion Gap 10 5 - 15 mmol/L [facility] Calcium 9.1 8.5 - 10.5 mg/dL [facility] Protein, Total 6.5 6.1 - 8.0 g/dL [facility] Albumin 4.1 3.2 - 5.2 g/dL [facility] Aspartate Aminotransferase 40(H) 0 - 39 unit/L [facility] Alanine Aminotransferase 61(H) 0 - 55 unit/L [facility] Alkaline Phosphatase 127 40 - 130 unit/L [facility] Bilirubin, Total 0.3 0.2 - 1.3 mg/dL [facility] Est Glomerular Filtration Rate 40(L) >=60 mL/min/1. 73 m?? [facility] Comment: This patient's estimated GFR was [...] MD CHEMISTRY ORDERABLES Performing Organization Address City/[facility] Co de Phone Number [facility] [place] [address] * TSH (04/28/2023 1:47 PM EST) Thyroid Stimulating Hormone 2.59 0.27 - 4.20 mcIU/mL [facility] Comment: Reference Interval (mcIU/mL): Females: ??First Trimester: 0.23-3.88 ??Second Trimester: 0.22-3.90 ??Third Trimester: 0.44-4.66 Blood 04/28/2023 1:47 PM EST 04/28/2023 1:53 PM EST Narrative Resulting Agency Comment Spec In Lab Albino Bartholomew MD CHEMISTRY ORDERABLES Performing Organization Address [facility] Co de Phone Number [facility] [place] [address] * T4, free (04/28/2023 1:47 PM EST) Free T4 1.57 0.93 - 1.70 ng/dL [facility] Comment: Reference Interval (ng/dL): Females: ??First Trimester: 0.97-1.68 ??Second Trimester: 0.77-1.51 ??Third Trimester: 0.77-1.49 Blood 04/28/2023 1:47 PM EST 04/28/2023 1:53 PM EST Narrative Resulting Agency Comment Spec In Lab Albino Bartholomew MD CHEMISTRY ORDERABLES Performing Organization Address [facility] Co de Phone Number [facility] [place] [address] documented in this encounter Visit Diagnoses Diagnosis Metastatic renal cell carcinoma to lung, unspecified laterality High risk medication use Encounter for long-term (current) use of other medications Abnormal thyroid function test Nonspecific abnormal results of thyroid function study Autoimmune hepatitis documented in this encounter Care Teams Pitch Gatherer Relationship Specialty Start Date End Date Juan Dempsey MD [address] [place] [id number] PCP - General Emergency Medicine 08/20/21 documented as of this encounter
--- OUTSIDE RECORDS SUMMARY | 2024-03-09 16:53 | XMS_ITS | Encounter Summary ---
Author Organization [facility] Address [facility] [place] [address] Care Team Providers Care Scaffold Worker Name Role Phone Juan Dempsey MD Primary Care Provider [phone] Encounter Details Date Type Department Care Team (Latest Contact Info) Description 01/13/2023 8:30 AM EDT - 01/13/2023 11:59 PM EDT Hospital Encounter [place] [phone] Metastatic renal cell carcinoma to lung, unspecified [...] [facility] Hematology Oncology [address] [place] [address] 03/29/2024 12:[address] [place] [place] [phone] Albino Bartholomew MD [facility] DR [place] [address] 04/05/2024 10:00 AM EST Office Visit [place]ology [place] [phone] Albino Bartholomew MD [facility] DR [place] [address] documented as of this encounter Procedures Procedure [...] Gold Tube HOLD (01/13/2023 8:55 AM EDT) [facility] Gold Hold Sample in lab. [facility] Blood No Charge / Unknown 01/13/2023 8:55 AM EDT 01/13/2023 9:25 AM EDT Ana Pringle MD CHEMISTRY ORDERABLES Performing Organization Address City/[facility]/ZIP Co de Phone Number [facility] [place] [place] [address] * Bilirubin, Direct (01/13/2023 8:30 AM EDT) [facility] Bilirubin, Direct 0.1 0.0 - 0.3 mg/dL [facility] Blood Venous Draw / Unknown 01/13/2023 8:30 AM EDT 01/13/2023 9:04 AM EDT Narrative Resulting Agency Comment Spec In Lab Ana Pringle MD CHEMISTRY ORDERABLES Performing Organization Address City/[facility]/[place] [address] * Differential, Automated (01/13/2023 8:30 AM EDT) [facility] Neutrophil % 63.9 % [facility] Neutrophil Absolute 5.09 1.70 - 6.10 x10(3)/[facility] Lymph % 29.2 % [facility] Lymphocytes Abs 2.3 0.9 - 3.2 x10(3)/[facility] Monocyte % 3.5 % [facility] Monocyte Abs 0.3 0.3 - 0.9 x10(3)/[facility] Eos % 2.0 % [facility] Eosinophils Abs 0.2 0.0 - 0.4 x10(3)/[facility] Basophil % 0.9 % [facility] Baso Absolute 0.1 0.0 - 0.1 x10(3)/[facility] Immature Gran % 0.50 % [facility] Comment: Immature granulocytes(IG's)percentage and absolute count will include metamyelocytes, myelocytes, and promyelocytes. Blood smears from CBCs yielding IG's will be scanned manually for concordance. If this scan disagrees with the automated IG or if promyelocytes are noted, a manual differential will be performed. Immature Gran Absolute 0.04 0.00 - 0.04 x10(3)/[facility] Blood 01/13/2023 8:30 AM EDT 01/13/2023 9:02 AM EDT Narrative Resulting Agency Comment Spec In Lab Albino Bartholomew MD HEMATOLOGY ORDERABLE S [facility] [place] [address] * (ABNORMAL) Hemogram (01/13/2023 8:30 AM EDT) White Blood Cell 8.0 4.0 - 9.5 x10(3)/mc L [facility] Red Blood Cell 4.54(L) 4.58 - 5.54 x10(6)/mc L [facility] Hemoglobin 14.8 13.7 - 16.5 g/dL [facility] Hematocrit 43.4 40.5 - 48.5 % [facility] Mean Cell Volume 95.6(H) 82.9 - 93.1 fL [facility] Mean Cell Hemoglobin 32.6(H) 27.5 - 32.1 pg [facility] Mean Cell Hemoglobin Concentration 34.1 32.0 - 35.7 g/dL [facility] Platelet 189 145 - 357 x10(3)/mc L [facility] RDW Standard Deviation 54.2(H) 36.0 - 45.0 fL [facility] RDW coefficient of variation 15.4(H) 11.4 - 13.8 % [facility] Mean Platelet Volume 9.1 7.6 - 12.9 fL [facility] NRBC% auto 0.0 % [facility] NRBC Absolute 0.000 0.000 - 0.000 x10(3)/mc L [facility] Blood 01/13/2023 8:30 AM EDT 01/13/2023 9:02 AM EDT Narrative Resulting Agency Comment Spec In Lab Albino Bartholomew MD HEMATOLOGY ORDERABLE S [facility] [address] [place] [address] * (ABNORMAL) Comprehensive metabolic panel (non-fasting) (01/13/2023 8:30 AM EDT) Glucose 119 65 - 199 mg/dL [facility] Comment:Diabetes: >=200 mg/d L plus symptoms Blood Urea Nitrogen 20 10 - 20 mg/dL [facility] Creatinine 1.40 0.80 - 1.50 mg/dL [facility] Sodium 141 135 - 145 mmol/L [facility] Potassium 3.5 3.5 - 5.0 mmol/L [facility] Comment: Please note: ??Patients with WBC >100,000 may have falsely elevated Potassium levels. ??For accurate Potassium quantification in these patients send serum separator tube (gold top) for subsequent determinations. ??Contact the Clinical Chemistry Laboratory if there are any questions. Chloride 103 98 - 107 mmol/L [facility] Carbon Dioxide 28 22 - 31 mmol/L [facility] Anion Gap 10 5 - 15 mmol/L [facility] Calcium 9.5 8.5 - 10.5 mg/dL [facility] Protein, Total 7.0 6.1 - 8.0 g/dL [facility] Albumin 4.2 3.2 - 5.2 g/dL [facility] Aspartate Aminotransferase 28 0 - 39 unit/L [facility] Alanine Aminotransferase 43 0 - 55 unit/L [facility] Alkaline Phosphatase 103 40 - 130 unit/L [facility] Bilirubin, Total 0.5 0.2 - 1.3 mg/dL [facility] Est Glomerular Filtration Rate 55(L) >=60 mL/min/1. 73 m?? [facility] [...] MD CHEMISTRY ORDERABLES Performing Organization Address City/[facility] Co de Phone Number [facility] [place] [address] * (ABNORMAL) TSH (01/13/2023 8:30 AM EDT) Thyroid Stimulating Hormone 6.29(H) 0.27 - 4.20 mcIU/mL [facility] Comment: Reference Interval (mcIU/mL): Females: ??First Trimester: 0.23-3.88 ??Second Trimester: 0.22-3.90 ??Third Trimester: 0.44-4.66 Blood 01/13/2023 8:30 AM EDT 01/13/2023 9:02 AM EDT Narrative Resulting Agency Comment Spec In Lab Albino Bartholomew MD CHEMISTRY ORDERABLES [facility] [place] [address] * T4, free (01/13/2023 8:30 AM EDT) Free T4 1.46 0.93 - 1.70 ng/dL [facility] Comment: Reference Interval (ng/dL): Females: ??First Trimester: 0.97-1.68 ??Second Trimester: 0.77-1.51 ??Third Trimester: 0.77-1.49 Blood 01/13/2023 8:30 AM EDT 01/13/2023 9:02 AM EDT Narrative Resulting Agency Comment Spec In Lab Albino Bartohlomew MD CHEMISTRY ORDERABLES Performing Organization Address City/State/[facility] Co de Phone Number [facility] [place] [address] documented in this encounter Visit Diagnoses Diagnosis Metastatic renal cell carcinoma to lung, unspecified laterality High risk medication use Encounter for long-term (current) use of other medications Abnormal thyroid function test Nonspecific abnormal results of thyroid function study documented in this encounter Care Teams Scaffold Worker Relationship Specialty Start Date End Date Juan Dempsey MD [address] [place] [id number] PCP - General Emergency Medicine 08/20/21 documented as of this encounter
--- OUTSIDE RECORDS SUMMARY | 2024-03-09 16:53 | XMS_ITS | Encounter Summary ---
Author Organization [facility] Address [facility] [place] [address] Care Team Providers Care Collision Repairer Name Role Phone Juan Dempsey MD Primary Care Provider [phone] Encounter Details Date Type Department Care Team [...] [facility] On[facility] [address] [place] [address] 03/29/2024 12:[address] [place] [place] [address] Albino Bartholomew MD [facility] DR [place] [address] 04/05/2024 10:00 AM EST Office Visit Hematology [place] [address] Albino Bartholomew MD [facility] DR [place] [address] documented as of this encounter Visit Diagnoses Not on filedocumented in this encounter Care Teams Collision Repairer Relationship Specialty Start Date End Date Juan Dempsey MD [address] [place] [address] PCP - General Emergency Medicine 08/20/21 documented as of this encounter
--- OUTSIDE RECORDS SUMMARY | 2024-03-09 16:53 | XMS_ITS | Encounter Summary ---
Author Organization [facility] [place] [address] Care Team Providers Care Supervisor Extruding Department Name Role Phone Juan Dempsey MD Primary Care Provider [phone] Encounter Details Date Type Department Care Team (Latest Contact Info) Description 02/10/2023 9:00 AM EDT - 02/10/2023 11:59 PM EDT Hospital Encounter Hematology [place] [phone] Metastatic renal cell carcinoma to lung, unspecified [...] [facility] Hematology Oncology [address] [place] [address] 03/29/2024 12:[address] [place] [phone] Albino Bartholomew MD [facility] [place] [address] 04/05/2024 10:00 AM EST Office Visit Hematology [place] [address] Albino Bartholomew MD [facility] [place] [address] Scheduled Orders Name Type Priority Associated Diagnoses [...] Bilirubin, Direct 0.1 0.0 - 0.3 mg/dL [facility] Blood 02/10/2023 9:11 AM EDT 02/10/2023 9:18 AM EDT Ana Pringle MD CHEMISTRY ORDERABLES Performing Organization Address City/State/[facility] Co de Phone Number [facility] [place] [address] * (ABNORMAL) Differential, Automated (02/10/2023 9:11 AM EDT) Neutrophil % 74.8 % [facility] Neutrophil Absolute 7.11(H) 1.70 - 6.10 x10(3)/mc L [facility] Lymph % 17.5 % [facility] Lymphocytes Abs 1.7 0.9 - 3.2 x10(3)/mc L [facility] Monocyte % 4.6 % [facility] Monocyte Abs 0.4 0.3 - 0.9 x10(3)/mc L [facility] Eos % 1.9 % [facility] Eosinophils Abs 0.2 0.0 - 0.4 x10(3)/mc L [facility] Basophil % 0.8 % [facility] Baso Absolute 0.1 0.0 - 0.1 x10(3)/mc L [facility] Immature Gran % 0.40 % [facility] Comment: Immature granulocytes(IG's)percentage and absolute count will include metamyelocytes, myelocytes, and promyelocytes. Blood smears from CBCs yielding IG's will be scanned manually for concordance. If this scan disagrees with the automated IG or if promyelocytes are noted, a manual differential will be performed. Immature Gran Absolute 0.04 0.00 - 0.04 x10(3)/mc L [facility] Blood 02/10/2023 9:11 AM EDT 02/10/2023 9:18 AM EDT Albino Bartholomew MD HEMATOLOGY ORDERABLE S [facility] [address] * (ABNORMAL) Hemogram (02/10/2023 9:11 AM EDT) White Blood Cell 9.5 4.0 - 9.5 x10(3)/mc L [facility] Red Blood Cell 4.25(L) 4.58 - 5.54 x10(6)/mc L [facility] Hemoglobin 13.9 13.7 - 16.5 g/dL [facility] Hematocrit 41.3 40.5 - 48.5 % [facility] Mean Cell Volume 97.2(H) 82.9 - 93.1 fL [facility] Mean Cell Hemoglobin 32.7(H) 27.5 - 32.1 pg [facility] Mean Cell Hemoglobin Concentration 33.7 32.0 - 35.7 g/dL [facility] Platelet 193 145 - 357 x10(3)/mc L [facility] RDW Standard Deviation 54.6(H) 36.0 - 45.0 fL [facility] RDW coefficient of variation 15.5(H) 11.4 - 13.8 % [facility] Mean Platelet Volume 9.8 7.6 - 12.9 fL [facility] NRBC% auto 0.0 % [facility] NRBC Absolute 0.000 0.000 - 0.000 x10(3)/mc L [facility] Blood 02/10/2023 9:11 AM EDT 02/10/2023 9:18 AM EDT Albino Bartholomew MD HEMATOLOGY ORDERABLE S [facility] [place] [address] * (ABNORMAL) Comprehensive metabolic panel (non-fasting) (02/10/2023 9:11 AM EDT) Glucose 93 65 - 199 mg/dL [facility] Comment:Diabetes: >=200 mg/d L plus symptoms Blood Urea Nitrogen 24(H) 10 - 20 mg/dL [facility] Creatinine 1.44 0.80 - 1.50 mg/dL [facility] Sodium 142 135 - 145 mmol/L [facility] Potassium 3.6 3.5 - 5.0 mmol/L [facility] Comment: Please note: ??Patients with WBC >100,000 may have falsely elevated Potassium levels. ??For accurate Potassium quantification in these patients send serum separator tube (gold top) for subsequent determinations. ??Contact the Clinical Chemistry Laboratory if there are any questions. Chloride 105 98 - 107 mmol/L [facility] Carbon Dioxide 29 22 - 31 mmol/L [facility] Anion Gap 8 5 - 15 mmol/L [facility] Calcium 9.2 8.5 - 10.5 mg/dL [facility] Protein, Total 6.2 6.1 - 8.0 g/dL [facility] Albumin 4.0 3.2 - 5.2 g/dL [facility] Aspartate Aminotransferase 30 0 - 39 unit/L [facility] Alanine Aminotransferase 38 0 - 55 unit/L [facility] Alkaline Phosphatase 106 40 - 130 unit/L [facility] Bilirubin, Total 0.4 0.2 - 1.3 mg/dL [facility] Est Glomerular Filtration Rate 53(L) >=60 mL/min/1. 73 m?? [facility] Comment: This patient's estimated GFR was [...] CHEMISTRY ORDERABLES Performing Organization Address [facility] Co de Phone Number [facility] [place] [address] * (ABNORMAL) TSH (02/10/2023 9:11 AM EDT) Thyroid Stimulating Hormone 6.10(H) 0.27 - 4.20 mcIU/mL [facility] Comment: Reference Interval (mcIU/mL): Females: ??First Trimester: 0.23-3.88 ??Second Trimester: 0.22-3.90 ??Third Trimester: 0.44-4.66 Blood 02/10/2023 9:11 AM EDT 02/10/2023 9:18 AM EDT Albino Bartholomew MD CHEMISTRY ORDERABLES Performing Organization Address [facility] Co de Phone Number [facility] [place] [place] [address] * T4, free (02/10/2023 9:11 AM EDT) Free T4 1.43 0.93 - 1.70 ng/dL [facility] Comment: Reference Interval (ng/dL): Females: ??First Trimester: 0.97-1.68 ??Second Trimester: 0.77-1.51 ??Third Trimester: 0.77-1.49 Blood 02/10/2023 9:11 AM EDT 02/10/2023 9:18 AM EDT Albino Bartholomew MD CHEMISTRY ORDERABLES Performing Organization Address [facility] Co de Phone Number [facility] [place] [address] documented in this encounter Visit Diagnoses Diagnosis Metastatic renal cell carcinoma to lung, unspecified laterality High risk medication use Encounter for long-term (current) use of other medications Abnormal thyroid function test Nonspecific abnormal results of thyroid function study Autoimmune hepatitis documented in this encounter Care Teams Supervisor Extruding Department Relationship Specialty Start Date End Date Juan Dempsey MD [address] [place] [address] PCP - General Emergency Medicine 08/20/21 documented as of this encounter
--- OUTSIDE RECORDS SUMMARY | 2024-03-09 16:53 | XMS_ITS | Encounter Summary ---
Author Organization [facility] Address [facility] [place] [address] Care Team Providers Care Assistant Hall Director Name Role Phone Juan Dempsey MD Primary Care Provider [phone] Encounter Details Date Type Department Care [...] [facility] Hematology Oncology [address] [place] [address] 03/29/2024 12:[address] [place] [address] Albino Bartholomew MD [facility] [address] [place] [address] 04/05/2024 10:00 AM EST Office Visit Hematology [place] [address] Albino Bartholomew MD [facility] [address] [place] [address] documented as of this encounter Visit Diagnoses Not on filedocumented in this encounter Care Teams Assistant Hall Director Relationship Specialty Start Date End Date Juan Dempsey MD [address] [place] [address] PCP - General Emergency Medicine 08/20/21 documented as of this encounter
--- OUTSIDE RECORDS SUMMARY | 2024-03-09 16:53 | XMS_ITS | Encounter Summary ---
Author Organization [facility] Address [facility] [place] [address] Care Team Providers Care Pot Washer Name Role Phone Juan Dempsey MD Primary Care Provider [phone] Reason for Referral * Diagnostic Test (Routine) - Closed Specialty Diagnoses / Procedures Referred By Contac t Referred To Contact Radiology Diagnoses Metastatic renal cell carcinoma to lung, unspecified laterality Multiple lung nodules on CT Procedures CT Chest Abdomen Pelvis w Contrast (Generic) Albino Costello MD [facility] [address] [place] [address] [facility] [place] [address] Referral ID Status Reason Start Date Expiration Date V isits Requested Visits Authorized [id number] Closed Specialty Service Requested 02/22/2023 08/23/2024 1 1 Reason for Visit * Reason Comments Follow-up Encounter Details Date Type Department Care Team (Late st Contact Info) Description 02/10/2023 10:00 AM EDT Office Visit [place]ematology [place] [address] Albino Costello MD [facility] DR [place] [address] Metastatic renal cell carcinoma to lung, unspecified [...] from the original note were not included. 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 Pt prefers to get labs at [facility]. We'll send orders and I'll ask our cutting and printing machine operator to f/u on results. Advised pt [...] Cabometyx with minimal side effects. Follows with triage licensed practical nurse Dr. Pringle, with plans to taper him [...] [facility] Hematology Oncology [address] [place] [address] 03/29/2024 12:[address] [place] [place] [address] Albino Costello MD [facility] [place] [address] 04/05/2024 10:00 AM EST Office Visit [place]ology [place] [address] Albino Costello MD [facility] DR [place] [address] documented as of this encounter Results * [...] have questions please contact the health career services representative that requested your imaging first. ? Narrative [...] be a cyst, pseudocyst, or sidebranch IPMN. [id number] MRI is recommended versus attention on planned follow-up studies. Thank you for letting us participate in the care of this patient. If youare a health care provider and have any questions regarding this report,please contact the number below. For patients who have questions please contactthe health career services representative that requested your imaging first. Albino Costello [...] CT documented in this encounter Care Teams Pot Washer Relationship Specialty Start Date End Date Juan Dempsey MD [address] [place] [address] PCP - General Emergency Medicine 08/20/21 documented as of this encounter
--- OUTSIDE RECORDS SUMMARY | 2024-03-09 16:53 | XMS_ITS | Encounter Summary ---
Author Organization [facility] Address [facility] [place] [address] Care Team Providers Care Building Tech Name Role Phone Juan Dempsey MD Primary Care Provider [phone] Reason for Visit * Reason Comments Follow-up Encounter Details Date Type Department Care Team (Late st Contact Info) Description 04/28/2023 3:30 PM EST Office Visit [place]ology [place] [phone] Albino Costello MD [facility] [address] [place] [address] Metastatic renal cell carcinoma to lung, unspecified [...] the original note were not included. [facility] [place] Oncology History of Present Illness: Mr. 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 We'll send orders and I'll ask our collar trimmer to f/u on results. Advised pt to [...] Cabometyx with minimal side effects. Follows with accounting support specialist Dr. Pringle, with plans to taper him [...] [facility] Hematology Oncology [address] [place] [address] 03/29/2024 12:[address] [place] [place] [address] [facility] [address] [place] [address] 04/05/2024 10:00 AM EST Office Visit [place]ology [place] [address] [facility] [address] [place] [address] documented as of this encounter Visit Diagnoses Diagnosis Metastatic renal cell carcinoma to lung, unspecified laterality High risk medication use Encounter for long-term (current) use of other medications Abnormal thyroid function test Nonspecific abnormal results of thyroid function study Autoimmune hepatitis Multiple lung nodules on CT documented in this encounter Care Teams Building Tech Relationship Specialty Start Date End Date Juan Dempsey MD [address] [place] [address] PCP - General Emergency Medicine 08/20/21 documented as of this encounter
--- OUTSIDE RECORDS SUMMARY | 2024-03-09 16:53 | XMS_ITS | Encounter Summary ---
Author Organization [facility] Address [facility] [place] [address] Care Team Providers Care News Wire Photo Operator Name Role Phone Juan Dempsey MD Primary Care Provider [phone] Reason for Visit * Reason Comments Specialty Refill Management Encounter Details Date Type Department Care Team (Late st Contact Info) Description 12/10/2022 Specialty [place] [phone] Reshma Gar, [facility] Social History Tobacco Use Types Packs/Day Years [...] encounter Progress Notes * Reshma Gar [facility] - 12/10/2022 11:43 AM EDT Clinical Management Plan: Refill Specialty Pharmacy Consultation; Reshma Gar [facility] Comprehensive Medication Management (CMM) Cristofer Stevensnaida Mr. [...] Standard Peanut Medication Reconciliation Discrepancies (compared to [facility] med list) No Specialty Pharmacy Refill [...] drug regimen were made. Reshma Gar [facility] 12/10/22 11:44 AM documented in this encounter Plan of Treatment Upcoming Encounters Date Type Department Care Team (Late st Contact Info) Description 03/29/2024 10:30 AM EST Laboratory Appointment Lab at [facility] Hematology Oncology [address] [place] [address] 03/29/2024 12:[address] [place] [address] Albino Bartholomew MD [facility] DR HEMATOLOGY [place] [address] 04/05/2024 10:00 AM EST Office Visit Hematology [place] [address] Albino Bartholomew MD [facility] DR HEMATOLOGY [place] [address] documented as of this encounter Visit Diagnoses Not on filedocumented in this encounter Care Teams News Wire Photo Operator Relationship Specialty Start Date End Date Juan Dempsey MD [address] [place] [address] PCP - General Emergency Medicine 08/20/21 documented as of this encounter
--- OUTSIDE RECORDS SUMMARY | 2024-03-09 16:53 | XMS_ITS | Encounter Summary ---
Author Organization [facility] Address [facility] [place] [address] Care Team Providers Care Wind Turbine Electrical Engineer Name Role Phone Juan Dempsey MD Primary Care Provider [phone] Encounter Details Date Type Department Care Team (Late st Contact Info) Description 12/07/2022 Refill Hematology [place] [phone] Daxa Arriola RN Social History Tobacco Use [...] 8:25 AM EDT Message received from clinical audio visual secretary: We received a refill request for cristofer. Levothyroxine 50 mcg tablet 50 [facility] [address] [facility] [place] [address] P [phone] F [phone] Review of chart suggests it is an appropriate refill. Order pended and routed to Edith Joaquin APRN for approval. documented in this encounter Plan of Treatment Upcoming Encounters Date Type Department Care Team (Late st Contact Info) Description 03/29/2024 10:30 AM EST Laboratory Appointment Lab at [facility] Hematology Oncology [address] [place] [address] 03/29/2024 12:[address] [place] [address] Albino Bartholomew MD [facility] DR [place] [address] 04/05/2024 10:00 AM EST Office Visit Hematology [place] [address] Albino Bartholomew MD [facility] DR [place] [address] documented as of this encounter Visit Diagnoses Not on filedocumented in this encounter Care Teams Wind Turbine Electrical Engineer Relationship Specialty Start Date End Date Juan Dempsey MD [address] [place] [address] PCP - General Emergency Medicine 08/20/21 documented as of this encounter
--- OUTSIDE RECORDS SUMMARY | 2024-03-09 16:53 | XMS_ITS | Encounter Summary ---
Author Organization [facility] Address [facility] [place] [address] Care Team Providers Care Extracting Machine Operator Name Role Phone Juan Dempsey MD Primary Care Provider [phone] Encounter Details Date Type Department Care [...] at [facility] Hematology Oncology [address] [place] [address] 03/29/2024 12:[address] [place] [address] Albino Bartholomew MD [facility] DR HEMATOLOGY [place] [address] 04/05/2024 10:00 AM EST Office Visit Hematology [place] [address] Albino Bartholomew MD [facility] DR HEMATOLOGY [place] [address] documented as of this encounter Visit Diagnoses Not on filedocumented in this encounter Care Teams Extracting Machine Operator Relationship Specialty Start Date End Date Juan Dempsey MD [address] [place] [address] PCP - General Emergency Medicine 08/20/21 documented as of this encounter
--- OUTSIDE RECORDS SUMMARY | 2024-03-09 16:53 | XMS_ITS | Encounter Summary ---
Author Organization [facility] Address [facility] [place] [address] Care Team Providers Care Prepared Foods Service Team Member Name Role Phone Juan Dempsey MD Primary Care Provider Encounter Details Date Type Department Care Team (Late st Contact Info) Description 04/06/2023 Telephone Hematology [place] [address] Radha Yanes MD [facility] [address] HEMATOLOGY/[place] [address] Social History Tobacco Use Types Packs/Day Years [...] hours daily, he was assessed by the rod pointer. [facility] this could be carbometyx related, hence per [...] [place] Yanes MD Hematology/ Medical Oncology Fellow [facility] [place] Page #[phone] documented in this encounter Plan of Treatment Upcoming Encounters Date Type Department Care Team (Late st Contact Info) Description 03/29/2024 10:30 AM EST Laboratory Appointment Lab at [facility] Hematology Oncology [address] [place] [address] 03/29/2024 12:[address] [place] [address] Albino Bartholomew MD [facility] [address] HEMATOLOGY [place] [address] 04/05/2024 10:00 AM EST Office Visit Hematology [place] [address] Albino Bartholomew MD [facility] [address] HEMATOLOGY [place] [address] documented as of this encounter Visit Diagnoses Not on filedocumented in this encounter Care Teams Prepared Foods Service Team Member Relationship Specialty Start Date End Date Juan Dempsye MD [address] [place] [address] PCP - General Emergency Medicine 08/20/21 documented as of this encounter
--- OUTSIDE RECORDS SUMMARY | 2024-03-09 16:53 | XMS_ITS | Encounter Summary ---
Author Organization [facility] Address [facility] [place] [address] Care Team Providers Care Heel Padder Name Role Phone Juan Dempsey MD Primary Care Provider [phone] Encounter Details Date Type Department Care Team [...] [facility] [place]ology Oncology [address] [place] [address] 03/29/2024 12:[address] [place] [address] Albino Bartholomew MD [facility] [address] [place] [address] 04/05/2024 10:00 AM EST Office Visit Hematology [place] [address] Albino Bartholomew MD [facility] [address] [place] [address] documented as of this encounter Visit Diagnoses Not on filedocumented in this encounter Care Teams Heel Padder Relationship Specialty Start Date End Date Juan Dempsey MD [address] [place] [address] PCP - General Emergency Medicine 08/20/21 documented as of this encounter
--- OUTSIDE RECORDS SUMMARY | 2024-03-09 16:53 | XMS_ITS | Encounter Summary ---
Author Organization [facility] Address [facility] [place] [address] Care Team Providers Care Family Practice Md Name Role Phone Juan Dempsey MD Primary Care Provider [phone] Encounter Details Date Type Department Care Team [...] [facility] Hematology Oncology [address] [place] [address] 03/29/2024 12:[address] [place] [address] Albino Bartholomew MD [facility] DR HEMATOLOGY [place] [address] 04/05/2024 10:00 AM EST Office Visit [place]ematology [place] [address] Albino Bartholomew MD [facility] DR HEMATOLOGY [place] [address] documented as of this encounter Visit Diagnoses Not on filedocumented in this encounter Care Teams Family Practice Md Relationship Specialty Start Date End Date Juan Dempsey MD [address] [place] [address] PCP - General Emergency Medicine 08/20/21 documented as of this encounter
--- OUTSIDE RECORDS SUMMARY | 2024-03-09 16:53 | XMS_ITS | Encounter Summary ---
Author Organization [facility] Address [facility] [place] [address] Care Team Providers Care Kettle Worker Name Role Phone Juan Dempsey MD Primary Care Provider [phone] Encounter Details Date Type Department Care Team [...] [facility] Hematology Oncology [address] [place] [address] 03/29/2024 12:[address] [place] [address] Albino Bartholomew MD [facility] DR HEMATOLOGY [place] [address] 04/05/2024 10:00 AM EST Office Visit Hematology [place] [address] Albino Bartholomew MD [facility] DR [place]EMATOLOGY [place] [address] documented as of this encounter Visit Diagnoses Not on filedocumented in this encounter Care Teams Kettle Worker Relationship Specialty Start Date End Date Juan Dempsey MD [address] [place] [address] PCP - General Emergency Medicine 08/20/21 documented as of this encounter
--- OUTSIDE RECORDS SUMMARY | 2024-03-09 16:53 | XMS_ITS | Encounter Summary ---
Author Organization [facility] Address [facility] [place] [address] Care Team Providers Care Livestock Slaughterer Name Role Phone Juan Dempsey MD Primary Care Provider [phone] Reason for Visit * Reason Comments Medication Management Encounter Details Date Type Department Care Team (Late st Contact Info) Description 02/10/2023 Specialty [place] [phone] Dawn Steen, [facility] Social History Tobacco Use Types Packs/Day Years [...] this encounter Progress Notes * Dawn Muse [facility] - 02/10/2023 2:49 PM EDT Clinical Management Plan: Refill Specialty Pharmacy Consultation; Dawn Muse [facility] Comprehensive Medication Management (CMM) Cristofer Stevensnaida Mr. [...] Standard Peanut Medication Reconciliation Discrepancies (compared to [facility] med list) No Specialty Pharmacy [...] current drug regimen were made. Dawn Muse [facility] 02/10/23 2:55 PM Specialty Pharmacy Consultation; Dawn [...] [facility] Hematology Oncology [address] [place] [address] 03/29/2024 12:[address] [place] [address] Albino Bartholomew MD [facility] [address] [place] [address] 04/05/2024 10:00 AM EST Office Visit Hematology [place] [address] Albino Bartholomew MD [facility] [address] [place] [address] documented as of this encounter Visit Diagnoses Not on filedocumented in this encounter Care Teams Livestock Slaughterer Relationship Specialty Start Date End Date Juan Dempsey MD [address] [place] [address] PCP - General Emergency Medicine 08/20/21 documented as of this encounter
--- OUTSIDE RECORDS SUMMARY | 2024-03-09 16:53 | XMS_ITS | Encounter Summary ---
Author Organization [facility] Address [facility] [place] [address] Care Team Providers Care Product Controller Name Role Phone Juan Dempsey MD Primary Care Provider [phone] Reason for Visit * Reason Comments Specialty Pharmacy Review Cabometyx 20mg tablet Encounter Details Date Type Department Care Team (Late st Contact Info) Description 03/17/2023 Specialty [place] [phone] Kelin Chong, [facility] Social History Tobacco Use Types Packs/Day [...] Chong - 03/17/2023 11:59 PM EST The [facility] has completed a benefits investigation for Cristofer Tenorio to review their eligibility to fill at [facility]. Per patient's medication list they are prescribedCabometyx 20mg tablet and the medication is currently filled through the [facility] The patient is currently filling the medication through Specialty Pharmacy with a $10.35 copay. PA approved until 2025 documented in this encounter Plan of Treatment Upcoming Encounters Date Type Department Care Team (Late st Contact Info) Description 03/29/2024 10:30 AM EST Laboratory Appointment [facility] [place] [facility] [place] [address] [place] [address] 03/29/2024 12:[address] [place] [address] Albino Bartholomew MD [facility] DR HEMATOLOGY [place] [address] 04/05/2024 10:00 AM EST Office Visit Hematology [place] [address] Albino Bartholomew MD [facility] DR HEMATOLOGY [place] [address] documented as of this encounter Visit Diagnoses Not on filedocumented in this encounter Care Teams Product Controller Relationship Specialty Start Date End Date Juan Dempsey MD [address] [place] [address] PCP - General Emergency Medicine 08/20/21 documented as of this encounter
--- OUTSIDE RECORDS SUMMARY | 2024-03-09 16:53 | XMS_ITS | Encounter Summary ---
Author Organization [facility] [place] [address] Care Team Providers Care Coding Team Lead Name Role Phone Juan Dempsey MD Primary Care Provider [phone] Reason for Visit * Reason Onset Date Comments Diarrhea 04/02/2023 Encounter Details Date Type Department Care Team (Late st Contact Info) Description 04/02/2023 Telephone Hematology [place] [address] Jacquelyn Funes RN Diarrhea Social [...] on Wednesday. TRIAGE CALL Message received from loan secretary: Received call from pt, transferred by loan secretary who identified pt's name/ and provided [...] blood is noted in his stools. , /ELECTRONIC PUBLISHING SPECIALIST/Telephone Triage for Oncology Nurses, 3rd Edition, ONCLexa [...] This note was written or modified using [employer] voice recognition software. The final note was screened for mistakes. Please excuse any remaining errors. documented in this encounter Plan of Treatment Upcoming Encounters Date Type Department Care Team (Late st Contact Info) Description 03/29/2024 10:30 AM EST Laboratory Appointment Lab at [facility] [place] [address] [place] [address] 03/29/2024 12:[address] [place] [address] Albino Bartholomew MD [facility] [place] [address] 04/05/2024 10:00 AM EST Office Visit Hematology [place] [address] Albino Bartholomew MD [facility] [place] [address] documented as of this encounter Visit Diagnoses Not on filedocumented in this encounter Care Teams Coding Team Lead Relationship Specialty Start Date End Date Juan Dempsey MD [address] [place] [address] PCP - General Emergency Medicine 08/20/21 documented as of this encounter
--- OUTSIDE RECORDS SUMMARY | 2024-03-09 16:53 | XMS_ITS | Encounter Summary ---
Author Organization [facility] Address [facility] [place] [address] Care Team Providers Care Seam Hammerer Name Role Phone Juan Dempsey MD Primary Care Provider [phone] Encounter Details Date Type Department Care Team [...] [facility] [place] [address] [place] [address] 03/29/2024 12:[address] [place] [address] Albino Bartholomew MD [facility] DR HEMATOLOGY [place] [address] 04/05/2024 10:00 AM EST Office Visit [place]ematology [place] [address] Albino Bartholomew MD [facility] DR HEMATOLOGY [place] [address] documented as of this encounter Visit Diagnoses Not on filedocumented in this encounter Care Teams Seam Hammerer Relationship Specialty Start Date End Date Juan Dempsey MD [address] [place] [address] PCP - General Emergency Medicine 08/20/21 documented as of this encounter
--- OUTSIDE RECORDS SUMMARY | 2024-03-09 16:53 | XMS_ITS | Encounter Summary ---
Author Organization [facility] Address [facility] [place] [address] Care Team Providers Care Graphic Arts Instructor Name Role Phone Juan Dempsey MD Primary Care Provider [phone] Reason for Visit * Reason Comments Follow-up Encounter Details Date Type Department Care Team (Late st Contact Info) Description 01/13/2023 10:00 AM EDT Office Visit Hematology [place] [address] Albino Costello MD [facility] DR HEMATOLOGY [place] [address] Metastatic renal cell carcinoma to lung, unspecified [...] from the original note were not included. [facility] Oncology History of Present Illness: Mr. [...] taper. Pt prefers to get labs at [facility]. We'll send orders and I'll ask our ui developer designer to f/u on results. Advised pt [...] Cabometyx with minimal side effects. Follows with travelers' aid worker Dr. Pringle, with plans to taper him [...] [facility] [place] [place] [address] [place] [address] 03/29/2024 12:[address] [place] [address] Albino Costello MD [facility] DR HEMATOLOGY [place] [address] 04/05/2024 10:00 AM EST Office Visit Hematology [place] [address] Albino Costello MD [facility] DR HEMATOLOGY [place] [address] documented as of this encounter Visit Diagnoses Diagnosis Metastatic renal cell carcinoma to lung, unspecified laterality Abnormal thyroid function test Nonspecific abnormal results of thyroid function study Autoimmune hepatitis Renal cell carcinoma of left kidney High risk medication use Encounter for long-term (current) use of other medications documented in this encounter Care Teams Graphic Arts Instructor Relationship Specialty Start Date End Date Juan Dempsey MD [address] [place] [address] PCP - General Emergency Medicine 08/20/21 documented as of this encounter
--- OUTSIDE RECORDS SUMMARY | 2024-03-09 16:54 | XMS_ITS | Encounter Summary ---
Author Organization [facility] Address [facility] [place] [address] Care Team Providers Care Safety Technician Name Role Phone Juan Dempsey MD Primary Care Provider [phone] Reason for Visit * Reason Comments Medication Refill Encounter Details Date Type Department Care Team (Late st Contact Info) Description 11/23/2022 Refill [place] [address] Ana Pringle MD [facility] [place] [address] Autoimmune hepatitis Social History Tobacco Use Types [...] [facility] Hematology Oncology [address] [place] [address] 03/29/2024 12:[address] [place] [address] Albino Bartholomew MD [facility] [place] [address] 04/05/2024 10:00 AM EST Office Visit Hematology [place] [address] Albino Bartholomew MD [facility] [place] [address] documented as of this encounter Visit Diagnoses Diagnosis Autoimmune hepatitis documented in this encounter Care Teams Safety Technician Relationship Specialty Start Date End Date Juan Dempsey MD [address] [place] [address] PCP - General Emergency Medicine 08/20/21 documented as of this encounter
--- OUTSIDE RECORDS SUMMARY | 2024-03-09 16:54 | XMS_ITS | Encounter Summary ---
Author Organization [facility] Address [facility] [place] [address] Care Team Providers Care Motion Picture Cameraman Name Role Phone Juan Dempsey MD Primary Care Provider Reason for Visit * Reason Comments Specialty Pharmacy Review Cabometyx 20mg tablet Encounter Details Date Type Department Care Team (Late st Contact Info) Description 11/06/2022 Specialty [place] [phone] Kelin Chong, [facility] Social History Tobacco Use Types Packs/Day [...] Chong - 11/06/2022 11:59 PM EDT The [facility] has completed a benefits investigation for Cristofer Tenorio to review their eligibility to fill at [facility]. Per patient's medication list they are prescribedCabometyx 20mg tablet and the medication is able to be filled at the [facility]. The patient is currently filling the medication through Specialty Pharmacy with a $0 copay. PA approved until 2025 documented in this encounter Plan of Treatment Upcoming Encounters Date Type Department Care Team (Late st Contact Info) Description 03/29/2024 10:30 AM EST Laboratory Appointment Lab at [facility] Hematology Oncology [address] [place] [address] 03/29/2024 12:[address] [place] [place] [address] Albino Bartholomew MD [facility] DR [place] [address] 04/05/2024 10:00 AM EST Office Visit [place]ematology [place] [address] Albino Bartholomew MD [facility] DR [place] [address] documented as of this encounter Visit Diagnoses Not on filedocumented in this encounter Care Teams Motion Picture Cameraman Relationship Specialty Start Date End Date Juan Dempsey MD [address] [place] [address] PCP - General Emergency Medicine 08/20/21 documented as of this encounter
--- OUTSIDE RECORDS SUMMARY | 2024-03-09 16:54 | XMS_ITS | Encounter Summary ---
Author Organization [facility] Address [facility] [place] [address] Care Team Providers Care Retail Specialist Name Role Phone Juan Dempsey MD Primary Care Provider Reason for Visit * Reason Comments Specialty Refill Management Encounter Details Date Type Department Care Team (Late st Contact Info) Description 08/25/2022 Specialty [place] [phone] Reshma Gar, [facility] [...] Notes * Reshma Gar [facility] - 08/25/2022 12:14 PM EDT Clinical Management Plan: Refill Specialty Pharmacy Consultation; Reshma Gar [facility] Comprehensive Medication Management (CMM) Cristofer Oh [...] beneficiary Provider: plan sponsor pharmacist Visit Type: [facility] Follow-up Time Spent: 1-15 min Method of Contact: by telephone Cognitive Ability: good Cognitive Impairment Status Verified this Year: no Allergies and Drug intolerance: Allergies Allergen Reactions ??? Grass Pollen-Orchardgrass, Standard ??? Peanut Medication Reconciliation Discrepancies (compared to [facility] med list) -n/a Specialty Pharmacy Refill Questionnaire [...] were made at the appointment and that [facility] is providing recommendations (summary located at top of note) for provider review and follow up. Reshma Gar [facility] 08/25/22 12:17 PM documented in this encounter Plan of Treatment Upcoming Encounters Date Type Department Care Team (Late st Contact Info) Description 03/29/2024 10:30 AM EST Laboratory Appointment Lab at [facility] Hematology Oncology [address] [place] [address] 03/29/2024 12:[address] [place] [address] Albino Bartholomew MD [facility] [address] [place] [address] 04/05/2024 10:00 AM EST Office Visit Hematology [place] [address] Albino Bartholomew MD [facility] [address] [place] [address] documented as of this encounter Visit Diagnoses Not on filedocumented in this encounter Care Teams Retail Specialist Relationship Specialty Start Date End Date Juan Dempsey MD [address] [place] [address] PCP - General Emergency Medicine 08/20/21 documented as of this encounter
--- OUTSIDE RECORDS SUMMARY | 2024-03-09 16:54 | XMS_ITS | Encounter Summary ---
Author Organization [facility] Address [facility] [place] [address] Care Team Providers Care Lpn Name Role Phone Juan Dempsey MD Primary Care Provider [phone] Encounter Details Date Type Department Care Team (Late st Contact Info) Description 11/06/2022 2:30 PM EDT Office Visit Dermatology at [facility] [address] [place] [phone] Oli Winter MD [address] [facility] [place] [address] Purpura; Sebaceous hyperplasia; Multiple benign melanocytic nevi [...] Oli Winter MD FAAD at Dermatology at [facility] Patient's preferred name Cristofer Preferred contact [...] laser therapy. Cosmetic treatment and therefore, likely [id number] expense. Handout given. Answered all questions. Patient [...] unless symptoms develop. Treatment considered cosmetic and [id number]. Treatment options, including but not limited to [...] dermatitis. [x] Recall placed [] Forwarded to materials scheduler [] Patient scheduled before exiting Scribe attestation: Trena Kohler RN has performed the documentation for this encounter in the presence of and acting as a scribe for Oli Winter MD FAAMichael. I performed the above scribed service and agree with the accuracy of the documentation in this encounter. Reviewed and signed by: MD LEONEL Leal Dermatology [facility] documented in this encounter Plan of Treatment Upcoming Encounters Date Type Department Care Team (Late st Contact Info) Description 03/29/2024 10:30 AM EST Laboratory Appointment Lab at [facility] [place] [address] [place] [address] 03/29/2024 12:[address] [place] [address] Albino Bartholomew MD [facility] [place] [address] 04/05/2024 10:00 AM EST Office Visit Hematology [place] [address] Albino Bartholomew MD [facility] [place] [address] documented as of this encounter Visit Diagnoses Diagnosis Purpura Other nonthrombocytopenic purpuras Sebaceous hyperplasia Other specified disease of sebaceous glands Multiple benign melanocytic nevi of both upper extremities, both lower extremities, and trunk Family history of melanoma Family history of other specified malignant neoplasm Lentigines Other dyschromia Rodríguez angioma Nevus, non-neoplastic SK (seborrheic keratosis) Other seborrheic keratosis documented in this encounter Care Teams Lpn Relationship Specialty Start Date End Date Juan Dempsey MD [address] [place] [address] PCP - General Emergency Medicine 08/20/21 documented as of this encounter
--- OUTSIDE RECORDS SUMMARY | 2024-03-09 16:54 | XMS_ITS | Encounter Summary ---
Author Organization [facility]ly [facility] Address [facility] [place] [address] Care Team Providers Care Grants Officer Name Role Phone Juan Dempsey MD Primary Care Provider [phone] Encounter Details Date Type Department Care Team (Latest Contact Info) Description 11/06/2022 9:50 AM EDT - 11/06/2022 11:59 PM EDT Hospital Encounter [place]ology [place] [phone] Metastatic renal cell carcinoma to lung, unspecified [...] [facility] [address] [place] [address] 03/29/2024 12:[address] [place] [phone] Albino Bartholomew MD [facility] [place] [address] 04/05/2024 10:00 AM EST Office Visit Hematology [place] [address] Albino Bartholomew MD [facility] [place] [address] Scheduled Orders Name Type Priority Associated Diagnoses [...] 10:00 AM EDT) Neutrophil % 70.9 % [facility] Neutrophil Absolute 5.96 1.70 - 6.10 x10(3)/[facility] LABORATORY Lymph % 23.2 % [facility] Lymphocytes Abs 2.0 0.9 - 3.2 x10(3)/[facility] LABORATORY Monocyte % 3.3 % [facility] Monocyte Abs 0.3 0.3 - 0.9 x10(3)/[facility] LABORATORY Eos % 1.3 % [facility] Eosinophils Abs 0.1 0.0 - 0.4 x10(3)/[facility] LABORATORY Basophil % 0.8 % [facility] Baso Absolute 0.1 0.0 - 0.1 x10(3)/[facility] LABORATORY Immature Gran % 0.50 % [facility] Comment: Immature granulocytes(IG's)percentage and absolute count will include metamyelocytes, myelocytes, and promyelocytes. Blood smears from CBCs yielding IG's will be scanned manually for concordance. If this scan disagrees with the automated IG or if promyelocytes are noted, a manual differential will be performed. Immature Gran Absolute 0.04 0.00 - 0.04 x10(3)/[facility] LABORATORY Blood 11/06/2022 10:0 0 AM EDT 11/06/2022 10:11 AM EDT Narrative Resulting Agency Comment Spec In Lab Albino Bartholomew MD HEMATOLOGY ORDERABLE S [facility] [place] [address] * (ABNORMAL) Hemogram (11/06/2022 10:00 AM EDT) White Blood Cell 8.4 4.0 - 9.5 x10(3)/mc L [facility] Red Blood Cell 4.67 4.58 - 5.54 x10(6)/mc L [facility] Hemoglobin 15.2 13.7 - 16.5 g/dL [facility] Hematocrit 44.6 40.5 - 48.5 % [facility] Mean Cell Volume 95.5(H) 82.9 - 93.1 fL [facility] Mean Cell Hemoglobin 32.5(H) 27.5 - 32.1 pg [facility] Mean Cell Hemoglobin Concentration 34.1 32.0 - 35.7 g/dL [facility] Platelet 164 145 - 357 x10(3)/mc L [facility] RDW Standard Deviation 46.5(H) 36.0 - 45.0 fL [facility] RDW coefficient of variation 13.2 11.4 - 13.8 % [facility] Mean Platelet Volume 9.4 7.6 - 12.9 fL [facility] NRBC% auto 0.0 % [facility] NRBC Absolute 0.000 0.000 - 0.000 x10(3)/mc L [facility] Blood 11/06/2022 10:0 0 AM EDT 11/06/2022 10:11 AM EDT Narrative Resulting Agency Comment Spec In Lab Albino Bartholomew MD HEMATOLOGY ORDERABLE S [facility] [place] [address] * T4, free (11/06/2022 10:00 AM EDT) Free T4 1.32 0.93 - 1.70 ng/dL [facility] Comment: Reference Interval (ng/dL): Females: ??First Trimester: 0.97-1.68 ??Second Trimester: 0.77-1.51 ??Third Trimester: 0.77-1.49 Blood 11/06/2022 10:0 0 AM EDT 11/06/2022 10:11 AM EDT Narrative Resulting Agency Comment Spec In Lab Albino Bartholomew MD CHEMISTRY ORDERABLES Performing Organization Address [facility] Co de Phone Number [facility] [place] [address] * (ABNORMAL) TSH (11/06/2022 10:00 AM EDT) Thyroid Stimulating Hormone 6.47(H) 0.27 - 4.20 mcIU/mL [facility] Comment: Reference Interval (mcIU/mL): Females: ??First Trimester: 0.23-3.88 ??Second Trimester: 0.22-3.90 ??Third Trimester: 0.44-4.66 Blood 11/06/2022 10:0 0 AM EDT 11/06/2022 10:11 AM EDT Narrative Resulting Agency Comment Spec In Lab Albino Bartholomew MD CHEMISTRY ORDERABLES Performing Organization Address [facility] de Phone Number [facility] [place] [address] * (ABNORMAL) Comprehensive metabolic panel (non-fasting) (11/06/2022 10:00 AM EDT) Glucose 108 65 - 199 mg/dL [facility] Comment:Diabetes: >=200 mg/d L plus symptoms Blood Urea Nitrogen 21(H) 10 - 20 mg/dL [facility] Creatinine 1.31 0.80 - 1.50 mg/dL [facility] Sodium 141 135 - 145 mmol/L [facility] Potassium 3.5 3.5 - 5.0 mmol/L [facility] Carbon Dioxide 29 22 - 31 mmol/L [facility] Anion Gap 9 5 - 15 mmol/L [facility] Calcium 8.9 8.5 - 10.5 mg/dL [facility] Protein, Total 6.6 6.1 - 8.0 g/dL [facility] Albumin 4.0 3.2 - 5.2 g/dL [facility] Aspartate Aminotransferase 37 0 - 39 unit/L [facility] Alanine Aminotransferase 57(H) 0 - 55 unit/L [facility] Alkaline Phosphatase 107 40 - 130 unit/L [facility] Bilirubin, Total 0.3 0.2 - 1.3 mg/dL [facility] Est Glomerular Filtration Rate 60 >=60 mL/min/1. 73 m?? [facility] [...] Bartholomew MD CHEMISTRY ORDERABLES Performing Organization Address City/State/[facility] Co de Phone Number [facility] [place] [address] documented in this encounter Visit Diagnoses Diagnosis Metastatic renal cell carcinoma to lung, unspecified laterality High risk medication use Encounter for long-term (current) use of other medications Abnormal thyroid function test Nonspecific abnormal results of thyroid function study documented in this encounter Care Teams Grants Officer Relationship Specialty Start Date End Date Juan Dempsey MD [address] [place] [address] PCP - General Emergency Medicine 08/20/21 documented as of this encounter
--- OUTSIDE RECORDS SUMMARY | 2024-03-09 16:54 | XMS_ITS | Encounter Summary ---
Author Organization [facility] [place] [address] Care Team Providers Care Railroad Signal Technician Name Role Phone Juan Dempsey MD Primary Care Provider [phone] Encounter Details Date Type Department Care Team (Latest Contact Info) Description 12/01/2022 1:33 PM EDT - 12/01/2022 11:59 PM EDT Hospital Encounter [place] [phone] Metastatic renal cell carcinoma to lung, unspecified [...] [facility] Hematology Oncology [address] [place] [address] 03/29/2024 12:[address] [place] [place] [phone] Albino Bartholomew MD [facility] DR HEMATOLOGY [place] [address] 04/05/2024 10:00 AM EST Office Visit [place] [address] Albino Bartholomew MD [facility] DR HEMATOLOGY [place] [address] documented as of this encounter Procedures Procedure [...] Direct 0.1 0.0 - 0.3 mg/dL [facility] Blood 12/01/2022 1:45 PM EDT 12/01/2022 1:54 PM EDT Narrative Resulting Agency Comment Spec In Lab Ana Pringle MD CHEMISTRY ORDERABLES Performing Organization Address City/State/[facility] Co de Phone Number [facility] [place] [address] * (ABNORMAL) Differential, Automated (12/01/2022 1:45 PM EDT) Pathologist [facility] Neutrophil % 72.8 % [facility] Neutrophil Absolute 6.89(H) 1.70 - 6.10 x10(3)/mc L [facility] Lymph % 20.0 % [facility] Lymphocytes Abs 1.9 0.9 - 3.2 x10(3)/mc L [facility] Monocyte % 4.0 % [facility] Monocyte Abs 0.4 0.3 - 0.9 x10(3)/mc L [facility] Eos % 1.7 % [facility] Eosinophils Abs 0.2 0.0 - 0.4 x10(3)/mc L [facility] Basophil % 1.1 % [facility] Baso Absolute 0.1 0.0 - 0.1 x10(3)/mc L [facility] Immature Gran % 0.40 % [facility] Comment: Immature granulocytes(IG's)percentage and absolute count will include metamyelocytes, myelocytes, and promyelocytes. Blood smears from CBCs yielding IG's will be scanned manually for concordance. If this scan disagrees with the automated IG or if promyelocytes are noted, a manual differential will be performed. Immature Gran Absolute 0.04 0.00 - 0.04 x10(3)/mc L [facility] Blood 12/01/2022 1:45 PM EDT 12/01/2022 1:54 PM EDT Narrative Resulting Agency Comment Spec In Lab Albino Bartholomew MD HEMATOLOGY ORDERABLE S Performing Organization Address City/[facility]/ZIP Co de Phone Number [facility] [place] [address] * (ABNORMAL) Hemogram (12/01/2022 1:45 PM EDT) White Blood Cell 9.5 4.0 - 9.5 x10(3)/mc L [facility] Red Blood Cell 4.44(L) 4.58 - 5.54 x10(6)/mc L [facility] Hemoglobin 14.2 13.7 - 16.5 g/dL [facility] Hematocrit 42.9 40.5 - 48.5 % [facility] Mean Cell Volume 96.6(H) 82.9 - 93.1 fL [facility] Mean Cell Hemoglobin 32.0 27.5 - 32.1 pg [facility] Mean Cell Hemoglobin Concentration 33.1 32.0 - 35.7 g/dL [facility] Platelet 160 145 - 357 x10(3)/mc L [facility] RDW Standard Deviation 49.2(H) 36.0 - 45.0 fL [facility] RDW coefficient of variation 13.9(H) 11.4 - 13.8 % [facility] Mean Platelet Volume 9.5 7.6 - 12.9 fL [facility] NRBC% auto 0.0 % [facility] NRBC Absolute 0.000 0.000 - 0.000 x10(3)/mc L [facility] Blood 12/01/2022 1:45 PM EDT 12/01/2022 1:54 PM EDT Narrative Resulting Agency Comment Spec In Lab Albino Bartholomew MD HEMATOLOGY ORDERABLE S [facility] [place] [address] * (ABNORMAL) Comprehensive metabolic panel (non-fasting) (12/01/2022 1:45 PM EDT) Glucose 122 65 - 199 mg/dL [facility] Comment:Diabetes: >=200 mg/d L plus symptoms Blood Urea Nitrogen 24(H) 10 - 20 mg/dL [facility] Creatinine 1.39 0.80 - 1.50 mg/dL [facility] Sodium 139 135 - 145 mmol/L [facility] Potassium 3.4(L) 3.5 - 5.0 mmol/L [facility] Comment: Please note: ??Patients with WBC >100,000 may have falsely elevated Potassium levels. ??For accurate Potassium quantification in these patients send serum separator tube (gold top) for subsequent determinations. ??Contact the Clinical Chemistry Laboratory if there are any questions. Chloride 103 98 - 107 mmol/L [facility] Carbon Dioxide 27 22 - 31 mmol/L [facility] Anion Gap 9 5 - 15 mmol/L [facility] Calcium 8.7 8.5 - 10.5 mg/dL [facility] Protein, Total 6.1 6.1 - 8.0 g/dL [facility] Albumin 3.7 3.2 - 5.2 g/dL [facility] Aspartate Aminotransferase 30 0 - 39 unit/L [facility] Alanine Aminotransferase 46 0 - 55 unit/L [facility] Alkaline Phosphatase 105 40 - 130 unit/L [facility] Bilirubin, Total 0.2 0.2 - 1.3 mg/dL [facility] Est Glomerular Filtration Rate 56(L) >=60 mL/min/1. 73 m?? [facility] Comment: This patient's estimated GFR [...] MD CHEMISTRY ORDERABLES Performing Organization Address City/[facility]/ZIP Co de Phone Number [facility] [place] [address] * (ABNORMAL) TSH (12/01/2022 1:45 PM EDT) Thyroid Stimulating Hormone 4.26(H) 0.27 - 4.20 mcIU/mL [facility] Comment: Reference Interval (mcIU/mL): Females: ??First Trimester: 0.23-3.88 ??Second Trimester: 0.22-3.90 ??Third Trimester: 0.44-4.66 Blood 12/01/2022 1:45 PM EDT 12/01/2022 1:54 PM EDT Narrative Resulting Agency Comment Spec In Lab Albino Bartholomew MD CHEMISTRY ORDERABLES Performing Organization Address [place] [facility] Co de Phone Number [facility] [place] [address] * T4, free (12/01/2022 1:45 PM EDT) Free T4 1.47 0.93 - 1.70 ng/dL [facility] Comment: Reference Interval (ng/dL): Females: ??First Trimester: 0.97-1.68 ??Second Trimester: 0.77-1.51 ??Third Trimester: 0.77-1.49 Blood 12/01/2022 1:45 PM EDT 12/01/2022 1:54 PM EDT Narrative Resulting Agency Comment Spec In Lab Albino Bartholomew MD CHEMISTRY ORDERABLES Performing Organization Address City/[facility] Co de Phone Number [facility] [place] [address] documented in this encounter Visit Diagnoses Diagnosis Metastatic renal cell carcinoma to lung, unspecified laterality High risk medication use Encounter for long-term (current) use of other medications Abnormal thyroid function test Nonspecific abnormal results of thyroid function study Autoimmune hepatitis documented in this encounter Care Teams Railroad Signal Technician Relationship Specialty Start Date End Date Juan Dempsey MD [address] [place] [address] PCP - General Emergency Medicine 08/20/21 documented as of this encounter
--- OUTSIDE RECORDS SUMMARY | 2024-03-09 16:54 | XMS_ITS | Encounter Summary ---
Author Organization [facility] Address [facility] [place] [address] Care Team Providers Care Lacing Operator Name Role Phone Juan Dempsey MD Primary Care Provider [phone] Reason for Visit * Reason Comments Follow-up Encounter Details Date Type Department Care Team (Late st Contact Info) Description 09/16/2022 2:00 PM EDT Office Visit [place]ology [place] [address] Albino Bartholomew MD [facility] [address] HEMATOLOGY [place] [address] Kyle Donohue PA [facility] [address] HEMATOLOGY [place] [address] Metastatic renal cell carcinoma to lung, unspecified [...] daughter; one step daughter as well 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 10/20/21 CXR ([facility]): 10/16/21: IMPRESSION 1. Unexpected finding: New 6 [...] We'll send orders and I'll ask our rail doweling machine operator to f/u on results. Advised [...] [facility] Hematology Oncology [address] [place] [address] 03/29/2024 12:[address] [place] [place] [address] Albino Bartholomew MD [facility] [address] HEMATOLOGY [place] [address] 04/05/2024 10:00 AM EST Office Visit [place]ology [place] [address] Albino Bartholomew MD [facility] [address] HEMATOLOGY [place] [address] documented as of this encounter Visit Diagnoses Diagnosis Metastatic renal cell carcinoma to lung, unspecified laterality High risk medication use Encounter for long-term (current) use of other medications Abnormal thyroid function test Nonspecific abnormal results of thyroid function study Elevated LFTs Other abnormal blood chemistry Autoimmune hepatitis Drug-induced liver injury documented in this encounter Care Teams Lacing Operator Relationship Specialty Start Date End Date Juan Dempsey MD [address] [place] [address] PCP - General Emergency Medicine 08/20/21 documented as of this encounter
--- OUTSIDE RECORDS SUMMARY | 2024-03-09 16:54 | XMS_ITS | Encounter Summary ---
Author Organization [facility] [place] [address] Care Team Providers Care Fire Sprinkler Installer Name Role Phone Juan Dempsey MD Primary Care Provider [phone] Reason for Referral * Diagnostic Test (Routine) - Closed Specialty Diagnoses / Procedures Referred By Contac t Referred To Contact Radiology Diagnoses Metastatic renal cell carcinoma to lung, unspecified laterality Procedures CT Chest Abdomen Pelvis w Contrast (Generic) Albino Bartholomew MD [facility] DR HEMATOLOGY [place] [address] [facility] [place] [address] Referral ID Status Reason Start Date Expiration Date V isits Requested Visits Authorized [id number] Closed Specialty Service Requested 10/14/2022 04/15/2024 1 1 Reason for Visit * Diagnostic Test (Routine) - Closed Specialty Diagnoses / Procedures Referred By Contac t Referred To Contact Radiology Diagnoses Metastatic renal cell carcinoma to lung, unspecified laterality Procedures CT Chest Abdomen Pelvis w Contrast (Generic) Albino Bartholomew MD [facility] H[place]ATOLOGY [place] [address] [facility] [place] [address] Referral ID Status Reason Start Date Expiration Date V isits Requested Visits Authorized [id number] Closed Specialty Service Requested 10/14/2022 04/15/2024 1 1 Encounter Details Date Type Department Care Team (Latest Contact Info) Description 11/04/2022 8:35 AM EDT - 11/04/2022 11:59 PM EDT Hospital Encounter CT Scan at [facility] [place] [address] Albino Bartholomew MD [facility] DR HEMATOLOGY [place] [address] Metastatic renal cell carcinoma to [...] [facility] Hematology Oncology [address] [place] [address] 03/29/2024 12:[address] [place] [address] Albino Bartholomew MD [facility] DR HEMATOLOGY [place] [address] 04/05/2024 10:00 AM EST Office Visit Hematology [place] [address] Albino Bartholomew MD [facility] [place] [address] documented as of this encounter Procedures Procedure [...] caregiver that requested your imaging first. ? Electronically signed by: Rich Baldwin MD, [facility] ([phone]), at 11/04/2022 1:30 PM Narrative 11/04/2022 1:30 [...] overnight caregiver that requested your imaging first. Electronically signed by: Rich Baldwin MD, [facility]([phone]), at 11/04/2022 1:30 PM Albino Bartholomew MD [...] mLs documented in this encounter Care Teams Fire Sprinkler Installer Relationship Specialty Start Date End Date Juan Dempsey MD [address] [place] [address] PCP - General Emergency Medicine 08/20/21 documented as of this encounter
--- OUTSIDE RECORDS SUMMARY | 2024-03-09 16:54 | XMS_ITS | Encounter Summary ---
Author Organization [facility] Address [facility] [place] [address] Care Team Providers Care Movable Bulkhead Installer Name Role Phone Juan Dempsey MD Primary Care Provider [phone] Reason for Visit * Reason Comments Follow-up Encounter Details Date Type Department Care Team (Late st Contact Info) Description 08/12/2022 2:00 PM EDT Office Visit Hematology [place] [address] Albino Bartholomew MD [facility] [address] [place] [address] Kyle Donohue PA [facility] [place] [address] Metastatic renal cell carcinoma to lung, unspecified [...] one step daughter as well 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 10/20/21 CXR ([facility]): 10/16/21: IMPRESSION 1. Unexpected finding: [...] Pt prefers to get labs at [facility]. We'll send orders and I'll ask our wool hat flanger to f/u on results. Advised pt to [...] or concerns and he agreed. Plan: - [id number] mcg a day - Continue Cabometyx 40 [...] [facility] Hematology Oncology [address] [place] [address] 03/29/2024 12:[address] [place] [address] Albino Bartholomew MD [facility] [address] [place] [address] 04/05/2024 10:00 AM EST Office Visit Hematology [place] [address] Albino Bartholomew MD [facility] [address] [place] [address] documented as of this encounter Visit Diagnoses Diagnosis Metastatic renal cell carcinoma to lung, unspecified laterality High risk medication use Encounter for long-term (current) use of other medications Abnormal thyroid function test Nonspecific abnormal results of thyroid function study Right kidney mass Unspecified disorder of kidney and ureter Elevated LFTs Other abnormal blood chemistry documented in this encounter Care Teams Movable Bulkhead Installer Relationship Specialty Start Date End Date Juan Dempsey MD [address] [place] [address] PCP - General Emergency Medicine 08/20/21 documented as of this encounter
--- OUTSIDE RECORDS SUMMARY | 2024-03-09 16:54 | XMS_ITS | Encounter Summary ---
Author Organization [facility]ly [facility] Address [facility] [place] [address] Care Team Providers Care Senior Hr Manager Name Role Phone Juan Dempsey MD Primary Care Provider Reason for Visit * Reason Comments Follow-up Encounter Details Date Type Department Care Team (Late st Contact Info) Description 11/06/2022 11:30 AM EDT Office Visit Hematology [place] [address] Albino Bartholomew MD [facility] H[place] [address] Metastatic renal cell carcinoma to lung, unspecified [...] one step daughter as well 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 10/20/21 CXR ([facility]): 10/16/21: IMPRESSION 1. Unexpected finding: New [...] taper. Pt prefers to get labs at [facility]. We'll send orders and I'll ask our forestry fire aid to f/u on results. Advised pt to [...] [facility] Hematology Oncology [address] [place], [place] [id number] 03/29/2024 12:[address] [place] [address] Albino Bartholomew MD [facility] HEMATOLOGY [place] [address] 04/05/2024 10:00 AM EST Office Visit Hematology [place] [address] Albino Bartholomew MD [facility] HEMATOLOGY [place] [address] documented as of this encounter Visit Diagnoses Diagnosis Metastatic renal cell carcinoma to lung, unspecified laterality High risk medication use Encounter for long-term (current) use of other medications Abnormal thyroid function test Nonspecific abnormal results of thyroid function study Autoimmune hepatitis Elevated LFTs Other abnormal blood chemistry documented in this encounter Care Teams Senior Hr Manager Relationship Specialty Start Date End Date Juan Dempsey MD [address] [place] [address] PCP - General Emergency Medicine 08/20/21 documented as of this encounter
--- OUTSIDE RECORDS SUMMARY | 2024-03-09 16:54 | XMS_ITS | Encounter Summary ---
Author Organization [facility] Address [facility] [place] [address] Care Team Providers Care Utility Tender Carding Name Role Phone Juan Dempsey MD Primary Care Provider [phone] Encounter Details Date Type Department Care Team [...] [facility] Hematology Oncology [address] [place] [address] 03/29/2024 12:[address] [place] [address] Albino Bartholomew MD [facility] [address] [place] [address] 04/05/2024 10:00 AM EST Office Visit Hematology [place] [address] Albino Bartholomew MD [facility] [address] [place] [address] documented as of this encounter Visit Diagnoses Not on filedocumented in this encounter Care Teams Utility Tender Carding Relationship Specialty Start Date End Date Juan Dempsey MD [address] [place] [address] PCP - General Emergency Medicine 08/20/21 documented as of this encounter
--- OUTSIDE RECORDS SUMMARY | 2024-03-09 16:54 | XMS_ITS | Encounter Summary ---
Author Organization [facility] Address [facility] [place] [place] [address] Care Team Providers Care Visualization Developer Name Role Phone Juan Dempsey MD Primary Care Provider [phone] Encounter Details Date Type Department Care Team (Late st Contact Info) Description 08/31/2022 Telephone Hematology [place] [address] Daxa Arriola RN Social History [...] 9:31 AM EDT Message received from clinical typing secretary: [phone] Reports that he is having pain in [...] [facility] Hematology Oncology [address] [place] [address] 03/29/2024 12:[address] [place] [address] Albino Bartholomew MD [facility] DR [place]AT[place] [address] 04/05/2024 10:00 AM EST Office Visit Hematology [place] [phone] Albino Bartholomew MD [facility] DR [place]EMAT[place] [address] documented as of this encounter Visit Diagnoses Not on filedocumented in this encounter Care Teams Visualization Developer Relationship Specialty Start Date End Date Juan Dempsey MD [address] [place] [address] PCP - General Emergency Medicine 08/20/21 documented as of this encounter
--- OUTSIDE RECORDS SUMMARY | 2024-03-09 16:54 | XMS_ITS | Encounter Summary ---
Author Organization [facility] Address [facility] [place] [address] Care Team Providers Care Atm Servicer Name Role Phone Juan Dempsey MD Primary Care Provider [phone] Reason for Visit * Reason Onset Date Comments Medication Refill 11/23/2022 Encounter Details Date Type Department Care Team (Late st Contact Info) Description 11/23/2022 Refill [place] [address] Ana Pringle MD [facility] [place] [address] Autoimmune hepatitis Social History Tobacco Use Types [...] [facility] H[facility] Oncology [address] [place] [address] 03/29/2024 12:[address] [place] [address] Albino Bartholomew MD [facility] DR [place] [address] 04/05/2024 10:00 AM EST Office Visit Hematology [place] [address] Albino Bartholomew MD [facility] DR [place] [address] documented as of this encounter Visit Diagnoses Diagnosis Autoimmune hepatitis documented in this encounter Care Teams Atm Servicer Relationship Specialty Start Date End Date Juan Dempsey MD [address] [place] [address] PCP - General Emergency Medicine 08/20/21 documented as of this encounter
--- OUTSIDE RECORDS SUMMARY | 2024-03-09 16:54 | XMS_ITS | Encounter Summary ---
Author Organization [facility] Address [facility] [place] [address] Care Team Providers Care Automotive Tire Testing Supervisor Name Role Phone Juan Dempsey MD Primary Care Provider [phone] Encounter Details Date Type Department Care Team (Late st Contact Info) Description 09/07/2022 Telephone Hematology [place] [address] Daxa Arriola RN Social History [...] [facility] Hematology Oncology [address] [place] [address] 03/29/2024 12:[address] [place] [address] Albino Bartholomew MD [facility] [place] [address] 04/05/2024 10:00 AM EST Office Visit Hematology [place] [address] Albino Bartholomew MD [facility] [place] [address] documented as of this encounter Visit Diagnoses Not on filedocumented in this encounter Care Teams Automotive Tire Testing Supervisor Relationship Specialty Start Date End Date Juan Dempsey MD [address] [place] [address] PCP - General Emergency Medicine 08/20/21 documented as of this encounter
--- OUTSIDE RECORDS SUMMARY | 2024-03-09 16:54 | XMS_ITS | Encounter Summary ---
Author Organization [facility] Address [facility] [place] [address] Care Team Providers Care Door To Door Sales Representative Name Role Phone Juan Dempsey MD Primary Care Provider Reason for Visit * Reason Comments Medication Management Encounter Details Date Type Department Care Team (Late st Contact Info) Description 09/16/2022 Specialty [place] [address] Camilla Lopez [place] Social History [...] Plan: Refill Specialty Pharmacy Consultation; Camilla Lopez [facility] Comprehensive Medication Management (CMM) Cristofer [...] beneficiary Provider: plan sponsor pharmacist [facility] Time Spent: 1-15 min Method of Contact: by telephone Cognitive Ability: good Cognitive Impairment Status Verified this Year: no Allergies and Drug intolerance: Allergies Allergen Reactions ??? Grass Pollen-Orchardgrass, Standard ??? Peanut Medication Reconciliation Discrepancies (compared to [facility] med list) -reconciled Specialty Pharmacy Refill Questionnaire [...] the appointment and that [facility] is providing recommendations (summary located at top of note) for provider review and follow up. Camilla Lopez RPH 09/16/22 4:21 PM documented in this encounter Plan of Treatment Upcoming Encounters Date Type Department Care Team (Late st Contact Info) Description 03/29/2024 10:30 AM EST Laboratory Appointment Lab at [facility] Hematology Oncology [address] [place] [address] 03/29/2024 12:[address] [place] [place] [address] Albino Bartholomew MD [facility] HEMATOLOGY [place] [address] 04/05/2024 10:00 AM EST Office Visit [place]ology [place] [address] Albino Bartholomew MD [facility] HEMATOLOGY [place] [address] documented as of this encounter Visit Diagnoses Not on filedocumented in this encounter Care Teams Door To Door Sales Representative Relationship Specialty Start Date End Date Juan Dempsey MD [address] [place] [address] PCP - General Emergency Medicine 08/20/21 documented as of this encounter
--- OUTSIDE RECORDS SUMMARY | 2024-03-09 16:54 | XMS_ITS | Encounter Summary ---
Author Organization [facility] Address [facility] [place] [address] Care Team Providers Care Blower Mechanic Name Role Phone Juan Dempsey MD Primary Care Provider [phone] Reason for Visit * Reason Comments Specialty Pharmacy Review Cabometyx 40mg tablet Encounter Details Date Type Department Care Team (Late st Contact Info) Description 08/12/2022 Specialty [place] [phone] Kelin Chong, [facility] Social History Tobacco Use Types Packs/Day Years [...] Chong - 08/12/2022 11:59 PM EDT The [facility] has completed a benefits investigation for Cristofer Tenorio to review their eligibility to fill at [facility]. Per patient's medication list they are prescribedCabometyx 40mg tablet and the medication is able to be filled at the [facility]. The patient is currently filling the medication through Specialty Pharmacy with a $0 copay. PA approved until 2025 documented in this encounter Plan of Treatment Upcoming Encounters Date Type Department Care Team (Late st Contact Info) Description 03/29/2024 10:30 AM EST Laboratory Appointment Lab at [facility] Hematology Oncology [address] [place] [address] 03/29/2024 12:[address] [place] [place] [address] Albino Bartholomew MD [facility] DR [place] [address] 04/05/2024 10:00 AM EST Office Visit [place]ematology [place] [address] Albino Bartholomew MD [facility] [address] [place] [address] documented as of this encounter Visit Diagnoses Not on filedocumented in this encounter Care Teams Blower Mechanic Relationship Specialty Start Date End Date Juan Dempsey MD [address] [place] [address] PCP - General Emergency Medicine 08/20/21 documented as of this encounter
--- OUTSIDE RECORDS SUMMARY | 2024-03-09 16:54 | XMS_ITS | Encounter Summary ---
Author Organization [facility] Address [facility] [place] [address] Care Team Providers Care Museum Or Zoo Director Name Role Phone Juan Dempsey MD Primary Care Provider [phone] Reason for Visit * Reason Comments Specialty Pharmacy Review Cabometyx 40mg tablet Encounter Details Date Type Department Care Team (Late st Contact Info) Description 09/16/2022 Specialty Pharmacy [place] [phone] Kelin Chong, [facility] Social History Tobacco Use Types Packs/Day [...] Chong - 09/16/2022 11:59 PM EDT The [facility] has completed a benefits investigation for Cristofer Tenorio to review their eligibility to fill at [facility]. Per patient's medication list they are prescribedCabometyx 40mg tablet and the medication is able to be filled at the [facility]. The patient is currently filling the medication through Specialty Pharmacy with a $0 copay. PA approved until 2025 documented in this encounter Plan of Treatment Upcoming Encounters Date Type Department Care Team (Late st Contact Info) Description 03/29/2024 10:30 AM EST Laboratory Appointment Lab at [facility] Hematology Oncology [address] [place] [address] 03/29/2024 12:[address] [place] [address] Albino Bartholomew MD [facility] [place] [address] 04/05/2024 10:00 AM EST Office Visit Hematology [place] [address] Albino Bartholomew MD [facility] [place] [address] documented as of this encounter Visit Diagnoses Not on filedocumented in this encounter Care Teams Museum Or Zoo Director Relationship Specialty Start Date End Date Juan Dempsey MD [address] [place] [address] PCP - General Emergency Medicine 08/20/21 documented as of this encounter
--- OUTSIDE RECORDS SUMMARY | 2024-03-09 16:54 | XMS_ITS | Encounter Summary ---
Author Organization [facility] Address [facility] [place] [address] Care Team Providers Care Knitting Machine Operator Automatic Name Role Phone Juan Dempsey MD Primary Care Provider [phone] Encounter Details Date Type Department Care Team [...] 10:30 AM EST Laboratory Appointment Lab at [facility] Hematology Oncology [address] [place] [address] 03/29/2024 12:[address] [place] [place] [address] Albino Bartholomew MD [facility] DR [place] [address] 04/05/2024 10:00 AM EST Office Visit [place] [address] Albino Bartholomew MD [facility] DR [place]AT[place] [address] documented as of this encounter Visit Diagnoses Not on filedocumented in this encounter Care Teams Knitting Machine Operator Automatic Relationship Specialty Start Date End Date Juan Dempsey MD [address] [place] [address] PCP - General Emergency Medicine 08/20/21 documented as of this encounter
--- OUTSIDE RECORDS SUMMARY | 2024-03-09 16:54 | XMS_ITS | Encounter Summary ---
Author Organization [facility] Address [facility] [address] Care Team Providers Care Bulkhead Carpenter Name Role Phone Juan Dempsey MD Primary Care Provider [phone] Encounter Details Date Type Department Care Team (Late st Contact Info) Description 10/12/2022 Specialty [place] [phone] Larry Mckeon, DENTAL COORDINATOR Social History Tobacco Use Types Packs/Day Years [...] Standard Peanut Medication Reconciliation Discrepancies (compared to [facility] med list) No Specialty Pharmacy Refill Questionnaire [...] [facility] Hematology Oncology [address] [place] [address] 03/29/2024 12:[address] [place] [address] Albino Bartholomew MD [facility] DR [place] [address] 04/05/2024 10:00 AM EST Office Visit Hematology [place] [address] Albino Bartholomew MD [facility] DR [place] [address] documented as of this encounter Visit Diagnoses Not on filedocumented in this encounter Care Teams Bulkhead Carpenter Relationship Specialty Start Date End Date Juan Dempsey MD [address] [place] [address] PCP - General Emergency Medicine 08/20/21 documented as of this encounter
--- OUTSIDE RECORDS SUMMARY | 2024-03-09 16:54 | XMS_ITS | Encounter Summary ---
[place] [address] Care Team Providers Care Car Whacker Name Role Phone Juan Dempsey MD Primary Care Provider [phone] Encounter Details Date Type Department Care Team (Latest Contact Info) Description 09/16/2022 11:41 AM EDT - 09/16/2022 11:59 PM EDT Hospital Encounter [place]ology [place] [phone] Drug-induced liver injury; Metastatic renal cell carcinoma [...] [facility] Hematology Oncology [address] [place] [address] 03/29/2024 12:[address] [place] [place] [address] Albino Bartholomew MD [facility] DR HEMATOLOGY [place] [address] 04/05/2024 10:00 AM EST Office Visit [place]ology [place] [address] Albino Bartholomew MD [facility] DR HEMATOLOGY [place] [address] Scheduled Orders Name Type Priority Associated Diagnoses [...] Bilirubin, Direct 0.1 0.0 - 0.3 mg/dL [facility] Blood 09/16/2022 11:5 9 AM EDT 09/16/2022 12:13 PM EDT Narrative Resulting Agency Comment Spec In Lab Ana Pringle MD CHEMISTRY ORDERABLES [facility] [place] [address] * Differential, Automated (09/16/2022 11:59 AM EDT) Pathologist [facility] Neutrophil % 66.6 % [facility] Neutrophil Absolute 4.16 1.70 - 6.10 x10(3)/[facility] Lymph % 24.6 % [facility] Lymphocytes Abs 1.5 0.9 - 3.2 x10(3)/[facility] Monocyte % 4.5 % [facility] Monocyte Abs 0.3 0.3 - 0.9 x10(3)/[facility] Eos % 2.9 % [facility] Eosinophils Abs 0.2 0.0 - 0.4 x10(3)/[facility] Basophil % 1.1 % [facility] Baso Absolute 0.1 0.0 - 0.1 x10(3)/[facility] Immature Gran % 0.30 % [facility] Comment: Immature granulocytes(IG's)percentage and absolute count will include metamyelocytes, myelocytes, and promyelocytes. Blood smears from CBCs yielding IG's will be scanned manually for concordance. If this scan disagrees with the automated IG or if promyelocytes are noted, a manual differential will be performed. Immature Gran Absolute 0.02 0.00 - 0.04 x10(3)/[facility] Blood 09/16/2022 11:5 9 AM EDT 09/16/2022 12:13 PM EDT Narrative Resulting Agency Comment Spec In Lab Albino Bartholomew MD HEMATOLOGY ORDERABLE S [facility] [place] [address] * (ABNORMAL) Hemogram (09/16/2022 11:59 AM EDT) White Blood Cell 6.2 4.0 - 9.5 x10(3)/mc L [facility] Red Blood Cell 3.87(L) 4.58 - 5.54 x10(6)/mc L [facility] Hemoglobin 13.0(L) 13.7 - 16.5 g/dL [facility] Hematocrit 38.8(L) 40.5 - 48.5 % [facility] Mean Cell Volume 100.3(H) 82.9 - 93.1 fL [facility] Mean Cell Hemoglobin 33.6(H) 27.5 - 32.1 pg [facility] Mean Cell Hemoglobin Concentration 33.5 32.0 - 35.7 g/dL [facility] Platelet 157 145 - 357 x10(3)/mc L [facility] RDW Standard Deviation 51.8(H) 36.0 - 45.0 fL [facility] RDW coefficient of variation 14.0(H) 11.4 - 13.8 % [facility] Mean Platelet Volume 10.0 7.6 - 12.9 fL [facility] NRBC% auto 0.0 % [facility] NRBC Absolute 0.000 0.000 - 0.000 x10(3)/mc L [facility] Blood 09/16/2022 11:5 9 AM EDT 09/16/2022 12:13 PM EDT Narrative Resulting Agency Comment Spec In Lab Albino Bartholomew MD HEMATOLOGY ORDERABLE S [facility] [place] [address] * (ABNORMAL) Comprehensive metabolic panel (non-fasting) (09/16/2022 11:59 AM EDT) Glucose 100 65 - 199 mg/dL [facility] Comment:Diabetes: >=200 mg/d L plus symptoms Blood Urea Nitrogen 19 10 - 20 mg/dL [facility] Creatinine 1.14 0.80 - 1.50 mg/dL [facility] Sodium 143 135 - 145 mmol/L [facility] Potassium 3.7 3.5 - 5.0 mmol/L [facility] Comment: Please note: ??Patients with WBC >100,000 may have falsely elevated Potassium levels. ??For accurate Potassium quantification in these patients send serum separator tube (gold top) for subsequent determinations. ??Contact the Clinical Chemistry Laboratory if there are any questions. Chloride 106 98 - 107 mmol/L [facility] Carbon Dioxide 30 22 - 31 mmol/L [facility] Anion Gap 7 5 - 15 mmol/L [facility] Calcium 9.0 8.5 - 10.5 mg/dL [facility] Protein, Total 6.3 6.1 - 8.0 g/dL [facility] Albumin 3.9 3.2 - 5.2 g/dL [facility] Aspartate Aminotransferase 79(H) 0 - 39 unit/L [facility] Alanine Aminotransferase 154(H) 0 - 55 unit/L [facility] Alkaline Phosphatase 99 40 - 130 unit/L [facility] Bilirubin, Total 0.3 0.2 - 1.3 mg/dL [facility] Est Glomerular Filtration Rate 70 >=60 mL/min/1. 73 m?? [facility] Comment: This patient's estimated GFR [...] Bartholomew MD CHEMISTRY ORDERABLES Performing Organization Address City/[facility] Co de Phone Number [facility] [place] [address] * (ABNORMAL) TSH (09/16/2022 11:59 AM EDT) Thyroid Stimulating Hormone 7.43(H) 0.27 - 4.20 mcIU/mL [facility] Comment: Reference Interval (mcIU/mL): Females: ??First Trimester: 0.23-3.88 ??Second Trimester: 0.22-3.90 ??Third Trimester: 0.44-4.66 Blood 09/16/2022 11:5 9 AM EDT 09/16/2022 12:13 PM EDT Narrative Resulting Agency Comment Spec In Lab Albino Bartholomew MD CHEMISTRY ORDERABLES Performing Organization Address [facility] Co de Phone Number [facility] [place] [address] * T4, free (09/16/2022 11:59 AM EDT) Free T4 1.30 0.93 - 1.70 ng/dL [facility] Comment: Reference Interval (ng/dL): Females: ??First Trimester: 0.97-1.68 ??Second Trimester: 0.77-1.51 ??Third Trimester: 0.77-1.49 Blood 09/16/2022 11:5 9 AM EDT 09/16/2022 12:13 PM EDT Narrative Resulting Agency Comment Spec In Lab Albino Bartholomew MD CHEMISTRY ORDERABLES [facility] [place] [address] documented in this encounter Visit Diagnoses Diagnosis Drug-induced liver injury Metastatic renal cell carcinoma to lung, unspecified laterality High risk medication use Encounter for long-term (current) use of other medications Abnormal thyroid function test Nonspecific abnormal results of thyroid function study Autoimmune hepatitis documented in this encounter Care Teams Car Whacker Relationship Specialty Start Date End Date Juan Dempsey MD [address] [place] [address] PCP - General Emergency Medicine 08/20/21 documented as of this encounter
--- OUTSIDE RECORDS SUMMARY | 2024-03-09 16:54 | XMS_ITS | Encounter Summary ---
Author Organization [facility] Address [facility] [place] [address] Care Team Providers Care Fingerprint Technician Name Role Phone Juan Dempsey MD Primary Care Provider [phone] Encounter Details Date Type Department Care Team (Late st Contact Info) Description 09/01/2022 Telephone [place]ematology [place] [address] Mary Salas RN Social History [...] will stop the Cabometyx as of today. single needle operator will f/u on 09/07. documented in this encounter Plan of Treatment Upcoming Encounters Date Type Department Care Team (Late st Contact Info) Description 03/29/2024 10:30 AM EST Laboratory Appointment Lab at [facility] Hematology Oncology [address] [place] [address] 03/29/2024 12:[address] [place] [address] Albino Bartholomew MD [facility] [place] [address] 04/05/2024 10:00 AM EST Office Visit [place]ematology [place] [address] Albino Bartholomew MD [facility] DR [place] [address] documented as of this encounter Visit Diagnoses Not on filedocumented in this encounter Care Teams Fingerprint Technician Relationship Specialty Start Date End Date Juan Dempsey MD [address] [place] [address] PCP - General Emergency Medicine 08/20/21 documented as of this encounter
--- OUTSIDE RECORDS SUMMARY | 2024-03-09 16:54 | XMS_ITS | Encounter Summary ---
Author Organization [facility] Address [facility] [place] [address] Care Team Providers Care Pole Cutter Name Role Phone Juan Dempsey MD Primary Care Provider [phone] Encounter Details Date Type Department Care Team [...] [facility] Hematology Oncology [address] [place] [address] 03/29/2024 12:[address] [place] [address] Albino Bartholomew MD [facility] DR HEMATOLOGY [place] [address] 04/05/2024 10:00 AM EST Office Visit [place]ology [place] [address] Albino Bartholomew MD [facility] DR HEMATOLOGY [place] [address] documented as of this encounter Visit Diagnoses Not on filedocumented in this encounter Care Teams Pole Cutter Relationship Specialty Start Date End Date Juan Dempsey MD [address] [place] [address] PCP - General Emergency Medicine 08/20/21 documented as of this encounter
--- OUTSIDE RECORDS SUMMARY | 2024-03-09 16:54 | XMS_ITS | Encounter Summary ---
Author Organization [facility] Address [facility] [place] [address] Care Team Providers Care Tank Shop Supervisor Name Role Phone Juan Dempsey MD Primary Care Provider [phone] Encounter Details Date Type Department Care Team [...] [facility] Hematology Oncology [address] [place] [address] 03/29/2024 12:[address] [place] [address] Albino Bartholomew MD [facility] DR [place] [address] 04/05/2024 10:00 AM EST Office Visit [place]ematology [place] [address] Albino Bartholomew MD [facility] DR [place] [address] documented as of this encounter Visit Diagnoses Not on filedocumented in this encounter Care Teams Tank Shop Supervisor Relationship Specialty Start Date End Date Juan Dempsey MD [address] [place] [address] PCP - General Emergency Medicine 08/20/21 documented as of this encounter
--- OUTSIDE RECORDS SUMMARY | 2024-03-09 16:54 | XMS_ITS | Encounter Summary ---
Author Organization [facility] [place] [address] Care Team Providers Care Senior Corporate Strategy Manager Name Role Phone Juan Dempsey MD Primary Care Provider [phone] Encounter Details Date Type Department Care Team (Latest Contact Info) Description 10/14/2022 12:01 PM EDT - 10/14/2022 11:59 PM EDT Hospital Encounter [place] [address] Metastatic renal cell carcinoma to lung, unspecified [...] [facility] [place] [address] [place] [address] 03/29/2024 12:[address] [place] [address] Albino Bartholomew MD [facility] DR [place] [address] 04/05/2024 10:00 AM EST Office Visit [place] [address] Albino Bartholomew MD [facility] DR [place] [address] Scheduled Orders Name Type Priority Associated Diagnoses [...] Bilirubin, Direct 0.1 0.0 - 0.3 mg/dL [facility] Blood 10/14/2022 12:2 3 PM EDT 10/14/2022 12:43 PM EDT Narrative Resulting Agency Comment Spec In Lab Ana Pringle MD CHEMISTRY ORDERABLES [facility] [place] [address] * (ABNORMAL) Differential, Automated (10/14/2022 12:23 PM EDT) Neutrophil % 80.4 % [facility] Neutrophil Absolute 7.90(H) 1.70 - 6.10 x10(3)/mc L [facility] Lymph % 15.1 % [facility] Lymphocytes Abs 1.5 0.9 - 3.2 x10(3)/mc L [facility] Monocyte % 2.7 % [facility] Monocyte Abs 0.3 0.3 - 0.9 x10(3)/mc L [facility] Eos % 0.7 % [facility] Eosinophils Abs 0.1 0.0 - 0.4 x10(3)/mc L [facility] Basophil % 0.7 % [facility] Baso Absolute 0.1 0.0 - 0.1 x10(3)/mc L [facility] Immature Gran % 0.40 % [facility] Comment: Immature granulocytes(IG's)percentage and absolute count will include metamyelocytes, myelocytes, and promyelocytes. Blood smears from CBCs yielding IG's will be scanned manually for concordance. If this scan disagrees with the automated IG or if promyelocytes are noted, a manual differential will be performed. Immature Gran Absolute 0.04 0.00 - 0.04 x10(3)/mc L [facility] Blood 10/14/2022 12:2 3 PM EDT 10/14/2022 12:42 PM EDT Narrative Resulting Agency Comment Spec In Lab Albino Bartholomew MD HEMATOLOGY ORDERABLE S [facility] [place] [address] * (ABNORMAL) Hemogram (10/14/2022 12:23 PM EDT) White Blood Cell 9.8(H) 4.0 - 9.5 x10(3)/mc L [facility] Red Blood Cell 4.38(L) 4.58 - 5.54 x10(6)/mc L [facility] Hemoglobin 14.4 13.7 - 16.5 g/dL [facility] Hematocrit 43.6 40.5 - 48.5 % [facility] Mean Cell Volume 99.5(H) 82.9 - 93.1 fL [facility] Mean Cell Hemoglobin 32.9(H) 27.5 - 32.1 pg [facility] Mean Cell Hemoglobin Concentration 33.0 32.0 - 35.7 g/dL [facility] Platelet 168 145 - 357 x10(3)/mc L [facility] RDW Standard Deviation 50.4(H) 36.0 - 45.0 fL [facility] RDW coefficient of variation 13.5 11.4 - 13.8 % [facility] Mean Platelet Volume 9.9 7.6 - 12.9 fL [facility] NRBC% auto 0.0 % [facility] NRBC Absolute 0.000 0.000 - 0.000 x10(3)/mc L [facility] Blood 10/14/2022 12:2 3 PM EDT 10/14/2022 12:42 PM EDT Narrative Resulting Agency Comment Spec In Lab Albino Bartholomew MD HEMATOLOGY ORDERABLE S [facility] [place] [address] * (ABNORMAL) Comprehensive metabolic panel (non-fasting) (10/14/2022 12:23 PM EDT) Glucose 125 65 - 199 mg/dL [facility] Comment:Diabetes: >=200 mg/d L plus symptoms Blood Urea Nitrogen 16 10 - 20 mg/dL [facility] Creatinine 1.23 0.80 - 1.50 mg/dL [facility] Sodium 138 135 - 145 mmol/L [facility] Potassium 3.9 3.5 - 5.0 mmol/L [facility] Comment: Please note: ??Patients with WBC >100,000 may have falsely elevated Potassium levels. ??For accurate Potassium quantification in these patients send serum separator tube (gold top) for subsequent determinations. ??Contact the Clinical Chemistry Laboratory if there are any questions. Chloride 105 98 - 107 mmol/L [facility] Carbon Dioxide 26 22 - 31 mmol/L [facility] Anion Gap 7 5 - 15 mmol/L [facility] Calcium 9.1 8.5 - 10.5 mg/dL [facility] Protein, Total 6.4 6.1 - 8.0 g/dL [facility] Albumin 4.0 3.2 - 5.2 g/dL [facility] Aspartate Aminotransferase 41(H) 0 - 39 unit/L [facility] Alanine Aminotransferase 87(H) 0 - 55 unit/L [facility] Alkaline Phosphatase 103 40 - 130 unit/L [facility] Bilirubin, Total 0.3 0.2 - 1.3 mg/dL [facility] Est Glomerular Filtration Rate 64 >=60 mL/min/1. 73 m?? [facility] Comment: This patient's estimated GFR [...] Bartholomew MD CHEMISTRY ORDERABLES Performing Organization Address [facility] Co de Phone Number [facility] [place] [address] * TSH (10/14/2022 12:23 PM EDT) Thyroid Stimulating Hormone 3.13 0.27 - 4.20 mcIU/mL [facility] Comment: Reference Interval (mcIU/mL): Females: ??First Trimester: 0.23-3.88 ??Second Trimester: 0.22-3.90 ??Third Trimester: 0.44-4.66 Blood 10/14/2022 12:2 3 PM EDT 10/14/2022 12:43 PM EDT Narrative Resulting Agency Comment Spec In Lab Albino Bartholomew MD CHEMISTRY ORDERABLES Performing Organization Address [facility] Co de Phone Number [facility] [place] [address] * T4, free (10/14/2022 12:23 PM EDT) Free T4 1.42 0.93 - 1.70 ng/dL [facility] Comment: Reference Interval (ng/dL): Females: ??First Trimester: 0.97-1.68 ??Second Trimester: 0.77-1.51 ??Third Trimester: 0.77-1.49 Blood 10/14/2022 12:2 3 PM EDT 10/14/2022 12:43 PM EDT Narrative Resulting Agency Comment Spec In Lab Albino Bartholomew MD CHEMISTRY ORDERABLES [facility] [place] [address] documented in this encounter Visit Diagnoses Diagnosis Metastatic renal cell carcinoma to lung, unspecified laterality High risk medication use Encounter for long-term (current) use of other medications Abnormal thyroid function test Nonspecific abnormal results of thyroid function study Autoimmune hepatitis documented in this encounter Care Teams Senior Corporate Strategy Manager Relationship Specialty Start Date End Date Juan Dempsey MD [address] [place] [address] PCP - General Emergency Medicine 08/20/21 documented as of this encounter
--- OUTSIDE RECORDS SUMMARY | 2024-03-09 16:54 | XMS_ITS | Encounter Summary ---
Author Organization [facility] Address [facility] [place] [address] Care Team Providers Care Freelance Copywriter Name Role Phone Juan Dempsey MD Primary Care Provider [phone] Encounter Details Date Type Department Care Team [...] AM EST Laboratory Appointment Lab at [facility] Hematology Oncology [address] [place] [address] 03/29/2024 12:[address] [place] [address] Albino Bartholomew MD [facility] DR [place] [address] 04/05/2024 10:00 AM EST Office Visit [place]ology [place] [address] Albino Bartholomew MD [facility] DR [place] [address] documented as of this encounter Visit Diagnoses Not on filedocumented in this encounter Care Teams Freelance Copywriter Relationship Specialty Start Date End Date Juan Dempsey MD [address] [place] [address] PCP - General Emergency Medicine 08/20/21 documented as of this encounter
--- OUTSIDE RECORDS SUMMARY | 2024-03-09 16:54 | XMS_ITS | Encounter Summary ---
Author Organization [facility] Address [facility] [place] [address] Care Team Providers Care Test Engineering Technician Name Role Phone Juan Dempsey MD Primary Care Provider [phone] Reason for Visit * Reason Comments Follow-up Encounter Details Date Type Department Care Team (Late st Contact Info) Description 12/01/2022 3:00 PM EDT Office Visit [place]ology [place] [address] HEMATOLOGY AND ONCOLOGY [place], [place] [id number] Metastatic renal cell carcinoma to lung, unspecified [...] from the original note were not included. [facility] Oncology History of Present Illness: Mr. 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 Pt prefers to get labs at [facility]. We'll send orders and I'll ask our mechanical test engineer to f/u on results. Advised pt [...] [facility] [place] [address] [place] [address] 03/29/2024 12:[address] [place] [address] Albino Bartholomew MD [facility] DR [place]AT[place] [address] 04/05/2024 10:00 AM EST Office Visit [place]ology [place] [address] Albino Bartholomew MD [facility] DR [place] [address] documented as of this encounter Visit Diagnoses Diagnosis Metastatic renal cell carcinoma to lung, unspecified laterality High risk medication use Encounter for long-term (current) use of other medications Abnormal thyroid function test Nonspecific abnormal results of thyroid function study documented in this encounter Care Teams Test Engineering Technician Relationship Specialty Start Date End Date Juan Dempsey MD [address] [place] [address] PCP - General Emergency Medicine 08/20/21 documented as of this encounter
--- OUTSIDE RECORDS SUMMARY | 2024-03-09 16:54 | XMS_ITS | Encounter Summary ---
Author Organization [facility] Address [facility] [place] [address] Care Team Providers Care Director Of Logistics Name Role Phone Juan Dempsey MD Primary Care Provider [phone] Reason for Referral * Diagnostic Test (Routine) - Closed Specialty Diagnoses / Procedures Referred By Contac t Referred To Contact Radiology Diagnoses Metastatic renal cell carcinoma to lung, unspecified laterality Procedures CT Chest Abdomen Pelvis w Contrast (Generic) Albino Bartholomew MD [facility] DR HEMATOLOGY [place] [address] [facility] [place] [address] Referral ID Status Reason Start Date Expiration Date V isits Requested Visits Authorized [id number] Closed Specialty Service Requested 10/14/2022 04/15/2024 1 1 Reason for Visit * Reason Comments Follow-up Follow up with labs Encounter Details Date Type Department Care Team (Late st Contact Info) Description 10/14/2022 1:30 PM EDT Office Visit Hematology [place] [address] Albino Bartholomew MD [facility] DR HEMATOLOGY [place] [address] Kyle Donohue PA [facility] DR HEMATOLOGY AND ONCOLOGY [place] [phone] Metastatic renal cell carcinoma to lung, unspecified [...] not included. History of Present Illness: Mr. Teonrio is a 67 y.o. man referred by [...] taper. Pt prefers to get labs at [facility]. We'll send orders and I'll ask our air analysis engineering technician to f/u on results. Advised pt to [...] [facility] Hematology Oncology [address] [place] [address] 03/29/2024 12:[address] [place] [address] Albino Bartholomew MD [facility] DR HEMATOLOGY [place] [address] 04/05/2024 10:00 AM EST Office Visit Hematology [place] [address] Albino Bartholomew MD [facility] DR HEMATOLOGY [place] [address] documented as of this encounter Results * [...] have questions please contact the health daycare worker that requested your imaging first. ? [...] who have questions please contactthe health daycare worker that requested your imaging first. Electronically signed by: Rich Baldwin MD, [facility]([phone]), at 11/04/2022 1:30 PM Albino Bartholomew MD [...] in this encounter Care Teams Director Of Logistics Relationship Specialty Start Date End Date Juan Dempsey MD [address] [place] [address] PCP - General Emergency Medicine 08/20/21 documented as of this encounter
--- OUTSIDE RECORDS SUMMARY | 2024-03-09 16:54 | XMS_ITS | Encounter Summary ---
Author Organization [facility] Address [facility] [place] [address] Care Team Providers Care Hose Inspector Name Role Phone Juan Dempsey MD Primary Care Provider [phone] Encounter Details Date Type Department Care Team [...] [facility] Hematology Oncology [address] [place] [address] 03/29/2024 12:[address] [place] [address] Albino Bartholomew MD [facility] DR [place] [address] 04/05/2024 10:00 AM EST Office Visit Hematology [place] [address] Albino Bartholomew MD [facility] DR [place] [address] documented as of this encounter Visit Diagnoses Not on filedocumented in this encounter Care Teams Hose Inspector Relationship Specialty Start Date End Date Juan Dempsey MD [address] [place] [address] PCP - General Emergency Medicine 08/20/21 documented as of this encounter
--- OUTSIDE RECORDS SUMMARY | 2024-03-09 16:54 | XMS_ITS | Encounter Summary ---
Author Organization [facility] Address [facility] [place] [address] Care Team Providers Care Pipeline Controller Name Role Phone Juan Dempsey MD Primary Care Provider [phone] Reason for Visit * Reason Comments Specialty Refill Management Encounter Details Date Type Department Care Team (Late st Contact Info) Description 11/09/2022 Specialty [place] [address] Marisabel Soto, PODIATRY ASSISTANT Social History Tobacco Use Types Packs/Day Years [...] Standard Peanut Medication Reconciliation Discrepancies (compared to [facility] med list) No Specialty Pharmacy Refill [...] [facility] Hematology Oncology [address] [place] [address] 03/29/2024 12:[address] [place] [place] [address] Albino Bartholomew MD [facility] DR HEMATOLOGY [place] [address] 04/05/2024 10:00 AM EST Office Visit Hematology [place] [address] Albino Bartholomew MD [facility] DR HEMATOLOGY [place] [address] documented as of this encounter Visit Diagnoses Not on filedocumented in this encounter Care Teams Pipeline Controller Relationship Specialty Start Date End Date Juan Dempsey MD [address] [place] [address] PCP - General Emergency Medicine 08/20/21 documented as of this encounter
--- OUTSIDE RECORDS SUMMARY | 2024-03-09 16:54 | XMS_ITS | Encounter Summary ---
Author Organization [facility] Address [facility] [place] [address] Care Team Providers Care Plant Worker Name Role Phone Juan Dempsey MD Primary Care Provider [phone] Encounter Details Date Type Department Care Team (Late st Contact Info) Description 08/23/2022 Orders [place] [address] Ana Pringle MD [facility] [place] [address] Drug-induced liver injury Social History Tobacco Use [...] at [facility] Hematology Oncology [address] [place] [address] 03/29/2024 12:[address] [place] [address] Albino Bartholomew MD [facility] DR HEMATOLOGY [place] [address] 04/05/2024 10:00 AM EST Office Visit [place]ematology [place] [address] Albino Bartholomew MD [facility] DR HEMATOLOGY [place] [address] documented as of this encounter Visit Diagnoses Diagnosis Drug-induced liver injury documented in this encounter Care Teams Plant Worker Relationship Specialty Start Date End Date Juan Dempsey MD [address] [place] [address] PCP - General Emergency Medicine 08/20/21 documented as of this encounter
--- OUTSIDE RECORDS SUMMARY | 2024-03-09 16:54 | XMS_ITS | Encounter Summary ---
Author Organization [facility] Address [facility] [place] [address] Care Team Providers Care Fabric Inspector Name Role Phone Juan Dempsey MD Primary Care Provider [phone] Encounter Details Date Type Department Care Team [...] [facility] Hematology Oncology [address] [place] [address] 03/29/2024 12:[address] [place] [address] Albino Bartholomew MD [facility] DR [place] [address] 04/05/2024 10:00 AM EST Office Visit Hematology [place] [address] Albino Bartholomew MD [facility] DR [place] [address] documented as of this encounter Visit Diagnoses Not on filedocumented in this encounter Care Teams Fabric Inspector Relationship Specialty Start Date End Date Juan Dempsey MD [address] [place] [address] PCP - General Emergency Medicine 08/20/21 documented as of this encounter
--- OUTSIDE RECORDS SUMMARY | 2024-03-09 16:55 | XMS_ITS | Encounter Summary ---
Author Organization [facility] Address [facility] [place] [address] Care Team Providers Care Guest Services Officer Name Role Phone Juan Dempsey MD Primary Care Provider [phone] Encounter Details Date Type Department Care Team [...] [facility] Hematology Oncology [address] [place] [address] 03/29/2024 12:[address] [place] [address] Albino Bartholomew MD [facility] DR [place] [address] 04/05/2024 10:00 AM EST Office Visit Hematology [place] [address] Albino Bartholomew MD [facility] DR [place] [address] documented as of this encounter Visit Diagnoses Not on filedocumented in this encounter Care Teams Guest Services Officer Relationship Specialty Start Date End Date Juan Dempsey MD [address] [place] [address] PCP - General Emergency Medicine 08/20/21 documented as of this encounter
--- OUTSIDE RECORDS SUMMARY | 2024-03-09 16:55 | XMS_ITS | Encounter Summary ---
Author Organization [facility] [place] [address] Care Team Providers Care Commercial Shrimping Captain Name Role Phone Juan Dempsey MD Primary Care Provider [phone] Encounter Details Date Type Department Care Team (Latest Contact Info) Description 08/12/2022 8:27 AM EDT - 08/12/2022 11:59 PM EDT Hospital Encounter Hematology [place] [phone] Metastatic renal cell carcinoma to lung, unspecified [...] [facility]emat[facility] Oncology [address] [place] [address] 03/29/2024 12:[address] [place] [phone] Albino Bartholomew MD [facility] DR HEMATOLOGY [place] [address] 04/05/2024 10:00 AM EST Office Visit Hematology [place] [address] Albino Bartholomew MD [facility] DR HEMATOLOGY [place] [address] Scheduled Orders Name Type Priority Associated Diagnoses [...] Bilirubin, Direct (08/12/2022 8:37 AM EDT) Pathologist [facility] Bilirubin, Direct 0.2 0.0 - 0.3 mg/dL [facility] Blood 08/12/2022 8:37 AM EDT 08/12/2022 8:42 AM EDT Narrative Resulting Agency Comment Spec In Lab Ana Pringle MD CHEMISTRY ORDERABLES [facility] [place] [address] * Differential, Automated (08/12/2022 8:37 AM EDT) [facility] Neutrophil % 68.7 % [facility] Neutrophil Absolute 4.64 1.70 - 6.10 x10(3)/[facility] Lymph % 22.8 % [facility] Lymphocytes Abs 1.5 0.9 - 3.2 x10(3)/[facility] Monocyte % 4.4 % [facility] Monocyte Abs 0.3 0.3 - 0.9 x10(3)/[facility] Eos % 2.7 % [facility] Eosinophils Abs 0.2 0.0 - 0.4 x10(3)/[facility] Basophil % 1.0 % [facility] Baso Absolute 0.1 0.0 - 0.1 x10(3)/[facility] Immature Gran % 0.40 % [facility] Comment: Immature granulocytes(IG's)percentage and absolute count will include metamyelocytes, myelocytes, and promyelocytes. Blood smears from CBCs yielding IG's will be scanned manually for concordance. If this scan disagrees with the automated IG or if promyelocytes are noted, a manual differential will be performed. Immature Gran Absolute 0.03 0.00 - 0.04 x10(3)/mcL [facility] Blood 08/12/2022 8:37 AM EDT 08/12/2022 8:42 AM EDT Narrative Resulting Agency Comment Spec In Lab Albino Bartholomew MD HEMATOLOGY ORDERABLE S [facility] [place] [address] * (ABNORMAL) Hemogram (08/12/2022 8:37 AM EDT) White Blood Cell 6.8 4.0 - 9.5 x10(3)/mc L [facility] Red Blood Cell 3.85(L) 4.58 - 5.54 x10(6)/mc L [facility] Hemoglobin 12.9(L) 13.7 - 16.5 g/dL [facility] Hematocrit 37.7(L) 40.5 - 48.5 % [facility] Mean Cell Volume 97.9(H) 82.9 - 93.1 fL [facility] Mean Cell Hemoglobin 33.5(H) 27.5 - 32.1 pg [facility] Mean Cell Hemoglobin Concentration 34.2 32.0 - 35.7 g/dL [facility] Platelet 165 145 - 357 x10(3)/mc L [facility] RDW Standard Deviation 51.8(H) 36.0 - 45.0 fL [facility] RDW coefficient of variation 14.5(H) 11.4 - 13.8 % [facility] Mean Platelet Volume 9.7 7.6 - 12.9 fL [facility] NRBC% auto 0.0 % [facility] NRBC Absolute 0.000 0.000 - 0.000 x10(3)/mc L [facility] Blood 08/12/2022 8:37 AM EDT 08/12/2022 8:42 AM EDT Narrative Resulting Agency Comment Spec In Lab Albino Bartholomew MD HEMATOLOGY ORDERABLE S Performing Organization Address [facility] Co de Phone Number [facility] [place] [address] * T4, free (08/12/2022 8:37 AM EDT) Free T4 1.18 0.93 - 1.70 ng/dL [facility] Comment: Reference Interval (ng/dL): Females: ??First Trimester: 0.97-1.68 ??Second Trimester: 0.77-1.51 ??Third Trimester: 0.77-1.49 Blood 08/12/2022 8:37 AM EDT 08/12/2022 8:42 AM EDT Narrative Resulting Agency Comment Spec In Lab Albino Bartholomew MD CHEMISTRY ORDERABLES Performing Organization Address [facility] Co de Phone Number [facility] [place] [address] * (ABNORMAL) TSH (08/12/2022 8:37 AM EDT) Thyroid Stimulating Hormone 16.70(H) 0.27 - 4.20 mcIU/mL [facility] Comment: Reference Interval (mcIU/mL): Females: ??First Trimester: 0.23-3.88 ??Second Trimester: 0.22-3.90 ??Third Trimester: 0.44-4.66 Blood 08/12/2022 8:37 AM EDT 08/12/2022 8:42 AM EDT Narrative Resulting Agency Comment Spec In Lab Albino Bartholomew MD CHEMISTRY ORDERABLES Performing Organization Address [facility] Co de Phone Number [facility] [place] [address] * (ABNORMAL) Comprehensive metabolic panel (non-fasting) (08/12/2022 8:37 AM EDT) Glucose 107 65 - 199 mg/dL [facility] Comment:Diabetes: >=200 mg/d L plus symptoms Blood Urea Nitrogen 17 10 - 20 mg/dL [facility] Creatinine 1.20 0.80 - 1.50 mg/dL [facility] Sodium 144 135 - 145 mmol/L [facility] Potassium 3.8 3.5 - 5.0 mmol/L [facility] Comment: Please note: ??Patients with WBC >100,000 may have falsely elevated Potassium levels. ??For accurate Potassium quantification in these patients send serum separator tube (gold top) for subsequent determinations. ??Contact the Clinical Chemistry Laboratory if there are any questions. Chloride 108(H) 98 - 107 mmol/L [facility] Carbon Dioxide 28 22 - 31 mmol/L [facility] Anion Gap 8 5 - 15 mmol/L [facility] Calcium 8.8 8.5 - 10.5 mg/dL [facility] Protein, Total 6.2 6.1 - 8.0 g/dL [facility] Albumin 4.0 3.2 - 5.2 g/dL [facility] Aspartate Aminotransferase 42(H) 0 - 39 unit/L [facility] Alanine Aminotransferase 78(H) 0 - 55 unit/L [facility] Alkaline Phosphatase 111 40 - 130 unit/L [facility] Bilirubin, Total 0.5 0.2 - 1.3 mg/dL [facility] Est Glomerular Filtration Rate 66 >=60 mL/min/1. 73 m?? [facility] Comment: This patient's estimated GFR [...] In Lab Albino Bartholomew MD CHEMISTRY ORDERABLES [facility] [place] [address] documented in this encounter Visit Diagnoses Diagnosis Metastatic renal cell carcinoma to lung, unspecified laterality High risk medication use Encounter for long-term (current) use of other medications Abnormal thyroid function test Nonspecific abnormal results of thyroid function study Autoimmune hepatitis documented in this encounter Care Teams Commercial Shrimping Captain Relationship Specialty Start Date End Date Juan Dempsey MD [address] [place] [address] PCP - General Emergency Medicine 08/20/21 documented as of this encounter
--- OUTSIDE RECORDS SUMMARY | 2024-03-09 16:55 | XMS_ITS | Encounter Summary ---
Author Organization [facility] Address [facility] [place] [address] Care Team Providers Care Assembly Loader Name Role Phone Juan Dempsey MD Primary Care Provider [phone] Encounter Details Date Type Department Care Team (Latest Contact Info) Description 06/26/2022 11:03 AM EST - 06/26/2022 11:59 PM EST Hospital Encounter Hematology [place] [phone] Metastatic renal cell carcinoma to lung, unspecified [...] [facility] [place] Oncology [address] [place] [address] 03/29/2024 12:[address] [place] [phone] Albino Bartholomew MD [facility] [address] [place] [address] 04/05/2024 10:00 AM EST Office Visit Hematology [place] [address] Albino Bartholomew MD [facility] DR [place] [address] Scheduled Orders Name Type Priority Associated Diagnoses [...] 11:12 AM EST) Neutrophil % 63.7 % [facility] Neutrophil Absolute 4.50 1.70 - 6.10 x10(3)/[facility] Lymph % 28.5 % [facility] Lymphocytes Abs 2.0 0.9 - 3.2 x10(3)/[facility] Monocyte % 4.7 % [facility] Monocyte Abs 0.3 0.3 - 0.9 x10(3)/[facility] Eos % 1.8 % [facility] Eosinophils Abs 0.1 0.0 - 0.4 x10(3)/[facility] Basophil % 1.0 % [facility] Baso Absolute 0.1 0.0 - 0.1 x10(3)/[facility] Immature Gran % 0.30 % [facility] Comment: Immature granulocytes(IG's)percentage and absolute count will include metamyelocytes, myelocytes, and promyelocytes. Blood smears from CBCs yielding IG's will be scanned manually for concordance. If this scan disagrees with the automated IG or if promyelocytes are noted, a manual differential will be performed. Immature Gran Absolute 0.02 0.00 - 0.04 x10(3)/[facility] Blood 06/26/2022 11:1 2 AM EST 06/26/2022 11:19 AM EST Narrative Resulting Agency Comment Spec In Lab Albino Bartholomew MD HEMATOLOGY ORDERABLE S [facility] [place] [address] * (ABNORMAL) Hemogram (06/26/2022 11:12 AM EST) White Blood Cell 7.1 4.0 - 9.5 x10(3)/mc L [facility] Red Blood Cell 4.12(L) 4.58 - 5.54 x10(6)/mc L [facility] Hemoglobin 13.2(L) 13.7 - 16.5 g/dL [facility] Hematocrit 38.2(L) 40.5 - 48.5 % [facility] Mean Cell Volume 92.7 82.9 - 93.1 fL [facility] Mean Cell Hemoglobin 32.0 27.5 - 32.1 pg [facility] Mean Cell Hemoglobin Concentration 34.6 32.0 - 35.7 g/dL [facility] Platelet 176 145 - 357 x10(3)/mc L [facility] RDW Standard Deviation 60.3(H) 36.0 - 45.0 fL [facility] RDW coefficient of variation 17.5(H) 11.4 - 13.8 % [facility] Mean Platelet Volume 9.7 7.6 - 12.9 fL [facility] NRBC% auto 0.0 % [facility] NRBC Absolute 0.000 0.000 - 0.000 x10(3)/mc L [facility] Blood 06/26/2022 11:1 2 AM EST 06/26/2022 11:19 AM EST Narrative Resulting Agency Comment Spec In Lab Albino Bartholomew MD HEMATOLOGY ORDERABLE S [facility] [place] [address] * T4, free (06/26/2022 11:12 AM EST) Free T4 1.34 0.93 - 1.70 ng/dL [facility] Comment: Reference Interval (ng/dL): Females: ??First Trimester: 0.97-1.68 ??Second Trimester: 0.77-1.51 ??Third Trimester: 0.77-1.49 Blood 06/26/2022 11:1 2 AM EST 06/26/2022 11:19 AM EST Narrative Resulting Agency Comment Spec In Lab Albino Bartholomew MD CHEMISTRY ORDERABLES Performing Organization Address [facility] de Phone Number [facility] [place] [address] * (ABNORMAL) TSH (06/26/2022 11:12 AM EST) Thyroid Stimulating Hormone 10.60(H) 0.27 - 4.20 mcIU/mL [facility] Comment: Reference Interval (mcIU/mL): Females: ??First Trimester: 0.23-3.88 ??Second Trimester: 0.22-3.90 ??Third Trimester: 0.44-4.66 Blood 06/26/2022 11:1 2 AM EST 06/26/2022 11:19 AM EST Narrative Resulting Agency Comment Spec In Lab Albino Bartholomew MD CHEMISTRY ORDERABLES Performing Organization Address [facility] de Phone Number [facility] [place] [address] * (ABNORMAL) Comprehensive metabolic panel (non-fasting) (06/26/2022 11:12 AM EST) Glucose 117 65 - 199 mg/dL [facility] Comment:Diabetes: >=200 mg/d L plus symptoms Blood Urea Nitrogen 28(H) 10 - 20 mg/dL [facility] Creatinine 1.80(H) 0.80 - 1.50 mg/dL [facility] Sodium 138 135 - 145 mmol/L [facility] Potassium 3.9 3.5 - 5.0 mmol/L [facility] Comment: Please note: ??Patients with WBC >100,000 may have falsely elevated Potassium levels. ??For accurate Potassium quantification in these patients send serum separator tube (gold top) for subsequent determinations. ??Contact the Clinical Chemistry Laboratory if there are any questions. Chloride 102 98 - 107 mmol/L [facility] Carbon Dioxide 27 22 - 31 mmol/L [facility] Anion Gap 9 5 - 15 mmol/L [facility] Calcium 9.1 8.5 - 10.5 mg/dL [facility] Protein, Total 6.6 6.1 - 8.0 g/dL [facility] Albumin 4.2 3.2 - 5.2 g/dL [facility] Aspartate Aminotransferase 42(H) 0 - 39 unit/L [facility] Alanine Aminotransferase 86(H) 0 - 55 unit/L [facility] Alkaline Phosphatase 121 40 - 130 unit/L [facility] Bilirubin, Total 0.6 0.2 - 1.3 mg/dL [facility] Est Glomerular Filtration Rate 41(L) >=60 mL/min/1. 73 m?? [facility] Comment: This patient's estimated GFR [...] In Lab Albino Bartholomew MD CHEMISTRY ORDERABLES [facility] [place] [address] documented in this encounter Visit Diagnoses Diagnosis Metastatic renal cell carcinoma to lung, unspecified laterality Abnormal thyroid function test Nonspecific abnormal results of thyroid function study High risk medication use Encounter for long-term (current) use of other medications documented in this encounter Care Teams Assembly Loader Relationship Specialty Start Date End Date Juan Dempsey MD [address] [place] [address] PCP - General Emergency Medicine 08/20/21 documented as of this encounter
--- OUTSIDE RECORDS SUMMARY | 2024-03-09 16:55 | XMS_ITS | Encounter Summary ---
Author Organization [facility] Address [facility] [place] [address] Care Team Providers Care Marketing Database Consultant Name Role Phone Juan Dempsey MD Primary Care Provider [phone] Reason for Visit * Reason Onset Date Comments Medication Refill 07/26/2022 Encounter Details Date Type Department Care Team (Late st Contact Info) Description 07/26/2022 Refill [place] [address] Ana Pringle MD [facility] [place] [address] Autoimmune hepatitis Social History Tobacco Use Types [...] Lab at [facility] Hematology Oncology [address] [place] [address] 03/29/2024 12:[address] [place] [address] Albino Bartholomew MD [facility] DR HEMATOLOGY [place] [address] 04/05/2024 10:00 AM EST Office Visit Hematology [place] [address] Albino Bartholomew MD [facility] DR HEMATOLOGY [place] [address] documented as of this encounter Visit Diagnoses Diagnosis Autoimmune hepatitis documented in this encounter Care Teams Marketing Database Consultant Relationship Specialty Start Date End Date Juan Dempsey MD [address] [place] [address] PCP - General Emergency Medicine 08/20/21 documented as of this encounter
--- OUTSIDE RECORDS SUMMARY | 2024-03-09 16:55 | XMS_ITS | Encounter Summary ---
Author Organization [facility] Address [facility] [place] [address] Care Team Providers Care Civil Celebrant Name Role Phone Juan Dempsey MD Primary Care Provider [phone] Reason for Referral * Diagnostic Test (Routine) - Closed Specialty Diagnoses / Procedures Referred By Contac t Referred To Contact Radiology Diagnoses Metastatic renal cell carcinoma to lung, unspecified laterality Procedures CT Chest Abdomen Pelvis w Contrast (Generic) Albino Bartholomew MD [facility] [address] [place] [address] [facility] [place] [address] Referral ID Status Reason Start Date Expiration Date V isits Requested Visits Authorized [id number] Closed Specialty Service Requested 05/20/2022 11/18/2023 1 1 Reason for Visit * Reason Comments Follow-up Encounter Details Date Type Department Care Team (Late st Contact Info) Description 05/20/2022 9:30 AM EST Office Visit Hematology [place] [address] Albino Bartholomew MD [facility] DR [place] [address] Tre Mcnair MD [facility] HEMATOLOGY/[place] [address] Kyle Donohue PA [facility] [place] [address] Metastatic renal cell carcinoma to lung, unspecified [...] one step daughter as well 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 10/20/21 CXR ([facility]): 10/16/21: IMPRESSION 1. Unexpected finding: [...] We'll send orders and I'll ask our computer systems software architect to f/u on results. Advised pt to [...] and CMP in 2 weeks locally at [facility] Next visit in 5 weeks with CBC, CMP, TSH, free T4 - CT C/A/P in 5 weeks - f/u genetic test Mr. Tenorio asked appropriate questions and verbalized good understanding of and agreement with the plan. I encouraged him to call anytime with questions or concerns and he agreed. Case seen and discussed with Dr. [place] Mcnair MD Hematology/Oncology Fellow [facility] * Albino Bartholomew MD - 05/20/2022 [...] abdomen pelvis Albino Bartholomew MD Hematology/Oncology Section, [facility] Sports Marketing Coordinatorco founder and director, [employer] [phone] documented in this encounter Plan of Treatment Upcoming Encounters Date Type Department Care Team (Late st Contact Info) Description 03/29/2024 10:30 AM EST Laboratory Appointment Lab at [facility] Hematology Oncology [address] [place] [address] 03/29/2024 12:[address] [place] [address] Albino Bartholomew MD [facility] [address] [place] [address] 04/05/2024 10:00 AM EST Office Visit Hematology [place] [address] Albino Bartholomew MD [facility] [address] [place] [address] Scheduled Orders Name Type Priority Associated Diagnoses [...] have questions please contact the health care transition coordinator that requested your imaging first. ? Electronically signed by: Tima Zacarias MD, [facility] ([phone]), at 06/26/2022 3:18 PM Narrative 06/26/2022 3:18 [...] laterality documented in this encounter Care Teams Civil Celebrant Relationship Specialty Start Date End Date Juan Dempsey MD [address] [place] [id number] PCP - General Emergency Medicine 08/20/21 documented as of this encounter
--- OUTSIDE RECORDS SUMMARY | 2024-03-09 16:55 | XMS_ITS | Encounter Summary ---
Author Organization [facility] Address [facility] [place] [address] Care Team Providers Care Cot Assembler Name Role Phone Juan Dempsey MD [...] [facility] [place] Oncology [address] [place] [address] 03/29/2024 12:[address] [place] [address] Albino Bartholomew MD [facility] [address] [place] [address] 04/05/2024 10:00 AM EST Office Visit Hematology [place] [address] Albino Bartholomew MD [facility] [address] [place] [address] documented as of this encounter Visit Diagnoses Not on filedocumented in this encounter Care Teams Cot Assembler Relationship Specialty Start Date End Date Juan Dempsey MD [address] [place] [address] PCP - General Emergency Medicine 08/20/21 documented as of this encounter
--- OUTSIDE RECORDS SUMMARY | 2024-03-09 16:55 | XMS_ITS | Encounter Summary ---
Author Organization [facility] Address [facility] [address] Care Team Providers Care Office Support Assistant Name Role Phone Juan Dempsey MD Primary Care Provider [phone] Encounter Details Date Type Department Care Team (Latest Contact Info) Description 07/13/2022 10:54 AM EDT - 07/13/2022 11:59 PM EDT Hospital Encounter [place] [phone] Albino Costello MD [facility] [place] [address] Metastatic renal cell carcinoma to lung, unspecified [...] [facility] Hematology Oncology [address] [place] [address] 03/29/2024 12:[address] [place] [phone] Albino Costello MD [facility] [place] [address] 04/05/2024 10:00 AM EST Office Visit Hematology [place] [address] Albino Costello MD [facility] [place] [address] documented as of this encounter Procedures Procedure [...] evaluation. Electronically signed by: Josselyn Gaona MD, [facility] ([phone]), at 07/13/2022 12:50 PM Thank you for letting us participate in the care of this patient. If you are a health care provider and have any questions regarding this report, please contact the number above. For patients who have questions, please contact the health healthcare economics consultant that requested your imaging first. ?Josselyn Gaona, [facility] Tea Room Manager Electronically Signed Final Report ?? 07/13/2022 12:57 pm Narrative 07/13/2022 12:58 PM EDT Renal ? (Signed Final 07/13/2022 12:57 pm) PATIENT INFO: ID #: ? [id number] ?: ??[birth year] (67 yrs)(M) Name: ? CRISTOFER TENORIO ? Visit Date: 07/13/2022 10:56 am PERFORMED BY: Attending: ?Candelaria CRAVEN, Josselyn Hudson Performed By: ? Purvi Miles RDMS Referred By: ?ALBINO COSTELLO Location: ? [facility] SERVICE(S) PROVIDED: URETRO - Retroperitoneal Complete - [id number] ? [id number] INDICATIONS: Change in appearance of exophytic focus [...] 07/13/2022 12:57 pm) PATIENT INFO: ID #: [id number] : 55 (67 yrs)(M) Name: CRISTOFER TENORIO Visit Date: 07/13/2022 10:56 am PERFORMED BY: Attending: Josselyn Gaona MD Performed By: Purvi Miles RDMS Referred By: ALBINO COSTELLO Location: [facility] SERVICE(S) PROVIDED: URETRO - Retroperitoneal Complete - [id number] INDICATIONS: Change in appearance of exophytic focus [...] evaluation. Electronically signed by: Josselyn Gaona MD, [facility] ([phone]), at 07/13/2022 12:50 PM Thank you for letting us participate in the care of this patient. If you are a health care provider and have any questions regarding this report, please contact the number above. For patients who have questions, please contact the health healthcare economics consultant that requested your imaging first. Josselyn Gaona, [facility] Tea Room Manager Electronically Signed Final Report 07/13/2022 12:57 pm Albino Costello MD IMG US GEN ORDERABLE S documented in this encounter Visit Diagnoses Diagnosis Metastatic renal cell carcinoma to lung, unspecified laterality documented in this encounter Care Teams Office Support Assistant Relationship Specialty Start Date End Date Juan Dempsey MD [address] [place] [address] PCP - General Emergency Medicine 08/20/21 documented as of this encounter
--- OUTSIDE RECORDS SUMMARY | 2024-03-09 16:55 | XMS_ITS | Encounter Summary ---
Author Organization [facility] Address [facility] [place] [address] Care Team Providers Care Pathology Transcriptionist Name Role Phone Juan Dempsey MD Primary Care Provider Encounter Details Date Type Department Care Team (Late st Contact Info) Description 05/07/2022 External Results [place] [address] [facility] [place] [address] Social History Tobacco Use Types Packs/Day Years [...] [facility] Hematology Oncology [address] [place] [address] 03/29/2024 12:[address] [place] [address] [facility] DR HEMATOLOGY [place] [address] 04/05/2024 10:00 AM EST Office Visit Hematology [place] [address] [facility] DR HEMATOLOGY [place] [address] documented as of this encounter Procedures Procedure [...] on filedocumented in this encounter Care Teams Pathology Transcriptionist Relationship Specialty Start Date End Date Juan Dempsey MD [address] [place] [address] PCP - General Emergency Medicine 08/20/21 documented as of this encounter
--- OUTSIDE RECORDS SUMMARY | 2024-03-09 16:55 | XMS_ITS | Encounter Summary ---
Author Organization [facility] Address [facility] [place] [address] Care Team Providers Care Coal Miner Name Role Phone Juan Dempsey MD [...] [facility] Hematology Oncology [address] [place] [address] 03/29/2024 12:[address] [place] [address] Albino aBrtholomew MD [facility] DR [place] [address] 04/05/2024 10:00 AM EST Office Visit Hematology [place] [address] Albino Bartholomew MD [facility] DR [place] [address] documented as of this encounter Visit Diagnoses Not on filedocumented in this encounter Care Teams Coal Miner Relationship Specialty Start Date End Date Juan Dempsey MD [address] [place] [address] PCP - General Emergency Medicine 08/20/21 documented as of this encounter
--- OUTSIDE RECORDS SUMMARY | 2024-03-09 16:55 | XMS_ITS | Encounter Summary ---
Author Organization [facility] Address [facility] [place] [address] Care Team Providers Care Solar Business Developer Name Role Phone Juan Dempsey MD Primary Care Provider [phone] Encounter Details Date Type Department Care Team [...] [facility] Hematology Oncology [address] [place] [address] 03/29/2024 12:[address] [place] [address] Albino Bartholomew MD [facility] DR [place] [address] 04/05/2024 10:00 AM EST Office Visit Hematology [place] [address] Albino Bartholomew MD [facility] DR [place] [address] documented as of this encounter Visit Diagnoses Not on filedocumented in this encounter Care Teams Solar Business Developer Relationship Specialty Start Date End Date Juan Dempsey MD [address] [place] [address] PCP - General Emergency Medicine 08/20/21 documented as of this encounter
--- OUTSIDE RECORDS SUMMARY | 2024-03-09 16:55 | XMS_ITS | Encounter Summary ---
Author Organization [facility] Address [facility] [place] [address] Care Team Providers Care Machine Operator Hop Picker Name Role Phone Juan Dempsey MD Primary Care Provider [phone] Reason for Visit * Reason Comments Specialty Pharmacy Review Cabometyx 40mg tablet Encounter Details Date Type Department Care Team (Late st Contact Info) Description 05/20/2022 Specialty [place] [phone] Kelin Chong, [facility] Social History Tobacco Use Types Packs/Day Years [...] Chong - 05/20/2022 11:59 PM EST The [facility] has completed a benefits investigation for Cristofer Tenorio to review their eligibility to fill at [facility]. Per patient's medication list they are prescribedCabometyx 40mg tablet and the medication is able to be filled at the [facility]. The patient is currently filling the medication through Specialty Pharmacy with a $0 copay. PA approved until 2025 documented in this encounter Plan of Treatment Upcoming Encounters Date Type Department Care Team (Late st Contact Info) Description 03/29/2024 10:30 AM EST Laboratory Appointment Lab at [facility] Hematology Oncology [address] [place] [address] 03/29/2024 12:[address] [place] [place] [address] Albino Bartholomew MD [facility] [address] [place] [address] 04/05/2024 10:00 AM EST Office Visit Hematology [place] [address] Albino Bartholomew MD [facility] DR [place] [address] documented as of this encounter Visit Diagnoses Not on filedocumented in this encounter Care Teams Machine Operator Hop Picker Relationship Specialty Start Date End Date Juan Dempsey MD [address] [place] [address] PCP - General Emergency Medicine 08/20/21 documented as of this encounter
--- OUTSIDE RECORDS SUMMARY | 2024-03-09 16:55 | XMS_ITS | Encounter Summary ---
Author Organization [facility] Address [facility] [place] [address] Care Team Providers Care Glass Embosser Name Role Phone Juan Dempsey MD Primary Care Provider [phone] Encounter Details Date Type Department Care Team [...] [facility] Hemat[facility] Oncology [address] [place] [address] 03/29/2024 12:[address] [place] [address] Albino Bartholomew MD [facility] [address] [place] [address] 04/05/2024 10:00 AM EST Office Visit Hematology [place] [address] Albino Bartholomew MD [facility] [address] [place] [address] documented as of this encounter Visit Diagnoses Not on filedocumented in this encounter Care Teams Glass Embosser Relationship Specialty Start Date End Date Juan Dempsey MD [address] [place] [address] PCP - General Emergency Medicine 08/20/21 documented as of this encounter
--- OUTSIDE RECORDS SUMMARY | 2024-03-09 16:55 | XMS_ITS | Encounter Summary ---
[facility] [place] [address] Care Team Providers Care Reclaimer Name Role Phone Juan Dempsey MD Primary Care Provider [phone] Reason for Visit * Reason Comments Follow-up Encounter Details Date Type Department Care Team (Late st Contact Info) Description 06/26/2022 3:00 PM EST Office Visit Hematology [place] [address] Albino Costello MD [facility] [address] [place] [address] Kyle Donohue PA [facility] [address] [place] [address] Metastatic renal cell carcinoma to lung, unspecified [...] 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 Advised pt [...] [facility] Hematology Oncology [address] [place] [id number] 03/29/2024 12:[address] [place] [address] Albino Costello MD [facility] [address] [place] [address] 04/05/2024 10:00 AM EST Office Visit Hematology [place] [address] Albino Costello MD [facility] [address] [place] [address] documented as of this encounter Results * T4, free (06/02/2023 12:12 PM EST) Free T4 1.64 0.93 - 1.70 ng/dL [facility] Comment: Reference Interval (ng/dL): Females: ??First Trimester: 0.97-1.68 ??Second Trimester: 0.77-1.51 ??Third Trimester: 0.77-1.49 Blood 06/02/2023 12:1 2 PM EST 06/02/2023 12:23 PM EST Narrative Resulting Agency Comment Spec In Lab Albino Costello MD CHEMISTRY ORDERABLES Performing Organization Address [facility] Co de Phone Number [facility] [place] [address] * TSH (06/02/2023 12:12 PM EST) Thyroid Stimulating Hormone 2.83 0.27 - 4.20 mcIU/mL [facility] Comment: Reference Interval (mcIU/mL): Females: ??First Trimester: 0.23-3.88 ??Second Trimester: 0.22-3.90 ??Third Trimester: 0.44-4.66 Blood 06/02/2023 12:1 2 PM EST 06/02/2023 12:23 PM EST Narrative Resulting Agency Comment Spec In Lab Albino Costello MD CHEMISTRY ORDERABLES Performing Organization Address [facility] Co de Phone Number [facility] [place] [address] * (ABNORMAL) Comprehensive metabolic panel (non-fasting) (06/02/2023 12:12 PM EST) Glucose 112 65 - 199 mg/dL [facility] Comment:Diabetes: >=200 mg/d L plus symptoms Blood Urea Nitrogen 20 10 - 20 mg/dL [facility] Creatinine 1.53(H) 0.80 - 1.50 mg/dL [facility] Sodium 142 135 - 145 mmol/L [facility] Potassium 4.2 3.5 - 5.0 mmol/L [facility] Comment: Please note: ??Patients with WBC >100,000 may have falsely elevated Potassium levels. ??For accurate Potassium quantification in these patients send serum separator tube (gold top) for subsequent determinations. ??Contact the Clinical Chemistry Laboratory if there are any questions. Chloride 106 98 - 107 mmol/L [facility] Carbon Dioxide 27 22 - 31 mmol/L [facility] Anion Gap 9 5 - 15 mmol/L [facility] Calcium 9.2 8.5 - 10.5 mg/dL [facility] Protein, Total 6.5 6.1 - 8.0 g/dL [facility] Albumin 4.0 3.2 - 5.2 g/dL [facility] Aspartate Aminotransferase 26 0 - 39 unit/L [facility] Alanine Aminotransferase 28 0 - 55 unit/L [facility] Alkaline Phosphatase 124 40 - 130 unit/L [facility] Bilirubin, Total 0.3 0.2 - 1.3 mg/dL [facility] Est Glomerular Filtration Rate 49(L) >=60 mL/min/1. 73 m?? [facility] Comment: This patient's estimated [...] Costello MD CHEMISTRY ORDERABLES Performing Organization Address City/State/[facility] Co de Phone Number [facility] [place] [address] * T4, free (04/28/2023 1:47 PM EST) Free T4 1.57 0.93 - 1.70 ng/dL [facility] Comment: Reference Interval (ng/dL): Females: ??First Trimester: 0.97-1.68 ??Second Trimester: 0.77-1.51 ??Third Trimester: 0.77-1.49 Blood 04/28/2023 1:47 PM EST 04/28/2023 1:53 PM EST Narrative Resulting Agency Comment Spec In Lab Albino Costello MD CHEMISTRY ORDERABLES Performing Organization Address City/[facility] Co de Phone Number [facility] [place] [address] * TSH (04/28/2023 1:47 PM EST) Thyroid Stimulating Hormone 2.59 0.27 - 4.20 mcIU/mL [facility] Comment: Reference Interval (mcIU/mL): Females: ??First Trimester: 0.23-3.88 ??Second Trimester: 0.22-3.90 ??Third Trimester: 0.44-4.66 Blood 04/28/2023 1:47 PM EST 04/28/2023 1:53 PM EST Narrative Resulting Agency Comment Spec In Lab Albino Costello MD CHEMISTRY ORDERABLES Performing Organization Address [facility] Co de Phone Number [facility] [place] [address] * (ABNORMAL) Comprehensive metabolic panel (non-fasting) (04/28/2023 1:47 PM EST) Glucose 92 65 - 199 mg/dL [facility] Comment:Diabetes: >=200 mg/d L plus symptoms Blood Urea Nitrogen 23(H) 10 - 20 mg/dL [facility] Creatinine 1.81(H) 0.80 - 1.50 mg/dL [facility] Sodium 142 135 - 145 mmol/L [facility] Potassium 4.2 3.5 - 5.0 mmol/L [facility] Comment: Please note: ??Patients with WBC >100,000 may have falsely elevated Potassium levels. ??For accurate Potassium quantification in these patients send serum separator tube (gold top) for subsequent determinations. ??Contact the Clinical Chemistry Laboratory if there are any questions. Chloride 105 98 - 107 mmol/L [facility] Carbon Dioxide 27 22 - 31 mmol/L [facility] Anion Gap 10 5 - 15 mmol/L [facility] Calcium 9.1 8.5 - 10.5 mg/dL [facility] Protein, Total 6.5 6.1 - 8.0 g/dL [facility] Albumin 4.1 3.2 - 5.2 g/dL [facility] Aspartate Aminotransferase 40(H) 0 - 39 unit/L [facility] Alanine Aminotransferase 61(H) 0 - 55 unit/L [facility] Alkaline Phosphatase 127 40 - 130 unit/L [facility] Bilirubin, Total 0.3 0.2 - 1.3 mg/dL [facility] Est Glomerular Filtration Rate 40(L) >=60 mL/min/1. 73 m?? [facility] Comment: This patient's estimated [...] Costello MD CHEMISTRY ORDERABLES Performing Organization Address [facility] Co de Phone Number [facility] [place] [address] * T4, free (03/16/2023 1:33 PM EST) Free T4 1.21 0.93 - 1.70 ng/dL [facility] Comment: Reference Interval (ng/dL): Females: ??First Trimester: 0.97-1.68 ??Second Trimester: 0.77-1.51 ??Third Trimester: 0.77-1.49 Blood 03/16/2023 1:33 PM EST 03/16/2023 1:47 PM EST Narrative Resulting Agency Comment Spec In Lab Albino Costello MD CHEMISTRY ORDERABLES Performing Organization Address City/[facility] Co de Phone Number [facility] [place] [address] * (ABNORMAL) TSH (03/16/2023 1:33 PM EST) Thyroid Stimulating Hormone 5.27(H) 0.27 - 4.20 mcIU/mL [facility] Comment: Reference Interval (mcIU/mL): Females: ??First Trimester: 0.23-3.88 ??Second Trimester: 0.22-3.90 ??Third Trimester: 0.44-4.66 Blood 03/16/2023 1:33 PM EST 03/16/2023 1:47 PM EST Narrative Resulting Agency Comment Spec In Lab Albino Costello MD CHEMISTRY ORDERABLES [facility] [place] [address] * (ABNORMAL) Comprehensive metabolic panel (non-fasting) (03/16/2023 1:33 PM EST) Glucose 124 65 - 199 mg/dL [facility] Comment:Diabetes: >=200 mg/d L plus symptoms Blood Urea Nitrogen 15 10 - 20 mg/dL [facility] Creatinine 1.49 0.80 - 1.50 mg/dL [facility] Sodium 141 135 - 145 mmol/L [facility] Potassium 3.6 3.5 - 5.0 mmol/L [facility] Comment: Please note: ??Patients with WBC >100,000 may have falsely elevated Potassium levels. ??For accurate Potassium quantification in these patients send serum separator tube (gold top) for subsequent determinations. ??Contact the Clinical Chemistry Laboratory if there are any questions. Chloride 103 98 - 107 mmol/L [facility] Carbon Dioxide 27 22 - 31 mmol/L [facility] Anion Gap 11 5 - 15 mmol/L [facility] Calcium 8.9 8.5 - 10.5 mg/dL [facility] Protein, Total 6.1 6.1 - 8.0 g/dL [facility] Albumin 4.1 3.2 - 5.2 g/dL [facility] Aspartate Aminotransferase 46(H) 0 - 39 unit/L [facility] Alanine Aminotransferase 74(H) 0 - 55 unit/L [facility] Alkaline Phosphatase 123 40 - 130 unit/L [facility] Bilirubin, Total 0.3 0.2 - 1.3 mg/dL [facility] Est Glomerular Filtration Rate 51(L) >=60 mL/min/1. 73 m?? [facility] Comment: This patient's estimated [...] Costello MD CHEMISTRY ORDERABLES Performing Organization Address City/[facility]/ZIP Co de Phone Number [facility] [place] [address] * T4, free (02/10/2023 9:11 AM EDT) Free T4 1.43 0.93 - 1.70 ng/dL [facility] Comment: Reference Interval (ng/dL): Females: ??First Trimester: 0.97-1.68 ??Second Trimester: 0.77-1.51 ??Third Trimester: 0.77-1.49 Blood 02/10/2023 9:11 AM EDT 02/10/2023 9:18 AM EDT lAbino Costello MD CHEMISTRY ORDERABLES [facility] [place] [address] * (ABNORMAL) TSH (02/10/2023 9:11 AM EDT) Thyroid Stimulating Hormone 6.10(H) 0.27 - 4.20 mcIU/mL [facility] Comment: Reference Interval (mcIU/mL): Females: ??First Trimester: 0.23-3.88 ??Second Trimester: 0.22-3.90 ??Third Trimester: 0.44-4.66 Blood 02/10/2023 9:11 AM EDT 02/10/2023 9:18 AM EDT Albino Costello MD CHEMISTRY ORDERABLES [facility] [address] [place] [address] * (ABNORMAL) Comprehensive metabolic panel (non-fasting) (02/10/2023 9:11 AM EDT) Glucose 93 65 - 199 mg/dL [facility] Comment:Diabetes: >=200 mg/d L plus symptoms Blood Urea Nitrogen 24(H) 10 - 20 mg/dL [facility] Creatinine 1.44 0.80 - 1.50 mg/dL [facility] Sodium 142 135 - 145 mmol/L [facility] Potassium 3.6 3.5 - 5.0 mmol/L [facility] Comment: Please note: ??Patients with WBC >100,000 may have falsely elevated Potassium levels. ??For accurate Potassium quantification in these patients send serum separator tube (gold top) for subsequent determinations. ??Contact the Clinical Chemistry Laboratory if there are any questions. Chloride 105 98 - 107 mmol/L [facility] Carbon Dioxide 29 22 - 31 mmol/L [facility] Anion Gap 8 5 - 15 mmol/L [facility] Calcium 9.2 8.5 - 10.5 mg/dL [facility] Protein, Total 6.2 6.1 - 8.0 g/dL [facility] Albumin 4.0 3.2 - 5.2 g/dL [facility] Aspartate Aminotransferase 30 0 - 39 unit/L [facility] Alanine Aminotransferase 38 0 - 55 unit/L [facility] Alkaline Phosphatase 106 40 - 130 unit/L [facility] Bilirubin, Total 0.4 0.2 - 1.3 mg/dL [facility] Est Glomerular Filtration Rate 53(L) >=60 mL/min/1. 73 m?? [facility] Comment: This patient's estimated [...] Costello MD CHEMISTRY ORDERABLES Performing Organization Address [facility] Co de Phone Number [facility] [place] [address] * T4, free (01/13/2023 8:30 AM EDT) Free T4 1.46 0.93 - 1.70 ng/dL [facility] Comment: Reference Interval (ng/dL): Females: ??First Trimester: 0.97-1.68 ??Second Trimester: 0.77-1.51 ??Third Trimester: 0.77-1.49 Blood 01/13/2023 8:30 AM EDT 01/13/2023 9:02 AM EDT Narrative Resulting Agency Comment Spec In Lab Albino Costello MD CHEMISTRY ORDERABLES Performing Organization Address [facility] Co de Phone Number [facility] [place] [address] * (ABNORMAL) TSH (01/13/2023 8:30 AM EDT) Thyroid Stimulating Hormone 6.29(H) 0.27 - 4.20 mcIU/mL [facility] Comment: Reference Interval (mcIU/mL): Females: ??First Trimester: 0.23-3.88 ??Second Trimester: 0.22-3.90 ??Third Trimester: 0.44-4.66 Blood 01/13/2023 8:30 AM EDT 01/13/2023 9:02 AM EDT Narrative Resulting Agency Comment Spec In Lab Albino Costello MD CHEMISTRY ORDERABLES [facility] [place] [address] * (ABNORMAL) Comprehensive metabolic panel (non-fasting) (01/13/2023 8:30 AM EDT) Glucose 119 65 - 199 mg/dL [facility] Comment:Diabetes: >=200 mg/d L plus symptoms Blood Urea Nitrogen 20 10 - 20 mg/dL [facility] Creatinine 1.40 0.80 - 1.50 mg/dL [facility] Sodium 141 135 - 145 mmol/L [facility] Potassium 3.5 3.5 - 5.0 mmol/L [facility] Comment: Please note: ??Patients with WBC >100,000 may have falsely elevated Potassium levels. ??For accurate Potassium quantification in these patients send serum separator tube (gold top) for subsequent determinations. ??Contact the Clinical Chemistry Laboratory if there are any questions. Chloride 103 98 - 107 mmol/L [facility] Carbon Dioxide 28 22 - 31 mmol/L [facility] Anion Gap 10 5 - 15 mmol/L [facility] Calcium 9.5 8.5 - 10.5 mg/dL [facility] Protein, Total 7.0 6.1 - 8.0 g/dL [facility] Albumin 4.2 3.2 - 5.2 g/dL [facility] Aspartate Aminotransferase 28 0 - 39 unit/L [facility] Alanine Aminotransferase 43 0 - 55 unit/L [facility] Alkaline Phosphatase 103 40 - 130 unit/L [facility] Bilirubin, Total 0.5 0.2 - 1.3 mg/dL [facility] Est Glomerular Filtration Rate 55(L) >=60 mL/min/1. 73 m?? [facility] Comment: This patient's estimated [...] Costello MD CHEMISTRY ORDERABLES Performing Organization Address City/[facility] Co de Phone Number [facility] [place] [address] * T4, free (12/01/2022 1:45 PM EDT) Free T4 1.47 0.93 - 1.70 ng/dL [facility] Comment: Reference Interval (ng/dL): Females: ??First Trimester: 0.97-1.68 ??Second Trimester: 0.77-1.51 ??Third Trimester: 0.77-1.49 Blood 12/01/2022 1:45 PM EDT 12/01/2022 1:54 PM EDT Narrative Resulting Agency Comment Spec In Lab Albino Costello MD CHEMISTRY ORDERABLES Performing Organization Address City/[facility] Co de Phone Number [facility] [place] [address] * (ABNORMAL) TSH (12/01/2022 1:45 PM EDT) Thyroid Stimulating Hormone 4.26(H) 0.27 - 4.20 mcIU/mL [facility] Comment: Reference Interval (mcIU/mL): Females: ??First Trimester: 0.23-3.88 ??Second Trimester: 0.22-3.90 ??Third Trimester: 0.44-4.66 Blood 12/01/2022 1:45 PM EDT 12/01/2022 1:54 PM EDT Narrative Resulting Agency Comment Spec In Lab Albino Costello MD CHEMISTRY ORDERABLES [facility] [place] [address] * (ABNORMAL) Comprehensive metabolic panel (non-fasting) (12/01/2022 1:45 PM EDT) Glucose 122 65 - 199 mg/dL [facility] Comment:Diabetes: >=200 mg/d L plus symptoms Blood Urea Nitrogen 24(H) 10 - 20 mg/dL [facility] Creatinine 1.39 0.80 - 1.50 mg/dL [facility] Sodium 139 135 - 145 mmol/L [facility] Potassium 3.4(L) 3.5 - 5.0 mmol/L [facility] Comment: Please note: ??Patients with WBC >100,000 may have falsely elevated Potassium levels. ??For accurate Potassium quantification in these patients send serum separator tube (gold top) for subsequent determinations. ??Contact the Clinical Chemistry Laboratory if there are any questions. Chloride 103 98 - 107 mmol/L [facility] Carbon Dioxide 27 22 - 31 mmol/L [facility] Anion Gap 9 5 - 15 mmol/L [facility] Calcium 8.7 8.5 - 10.5 mg/dL [facility] Protein, Total 6.1 6.1 - 8.0 g/dL [facility] Albumin 3.7 3.2 - 5.2 g/dL [facility] Aspartate Aminotransferase 30 0 - 39 unit/L [facility] Alanine Aminotransferase 46 0 - 55 unit/L [facility] Alkaline Phosphatase 105 40 - 130 unit/L [facility] Bilirubin, Total 0.2 0.2 - 1.3 mg/dL [facility] Est Glomerular Filtration Rate 56(L) >=60 mL/min/1. 73 m?? [facility] Comment: This patient's estimated [...] Costello MD CHEMISTRY ORDERABLES Performing Organization Address [facility] Co de Phone Number [facility] [place] [address] * T4, free (11/06/2022 10:00 AM EDT) Free T4 1.32 0.93 - 1.70 ng/dL [facility] Comment: Reference Interval (ng/dL): Females: ??First Trimester: 0.97-1.68 ??Second Trimester: 0.77-1.51 ??Third Trimester: 0.77-1.49 Blood 11/06/2022 10:0 0 AM EDT 11/06/2022 10:11 AM EDT Narrative Resulting Agency Comment Spec In Lab Albino Costello MD CHEMISTRY ORDERABLES Performing Organization Address [facility] Co de Phone Number [facility] [place] [address] * (ABNORMAL) TSH (11/06/2022 10:00 AM EDT) Thyroid Stimulating Hormone 6.47(H) 0.27 - 4.20 mcIU/mL [facility] Comment: Reference Interval (mcIU/mL): Females: ??First Trimester: 0.23-3.88 ??Second Trimester: 0.22-3.90 ??Third Trimester: 0.44-4.66 Blood 11/06/2022 10:0 0 AM EDT 11/06/2022 10:11 AM EDT Narrative Resulting Agency Comment Spec In Lab Albino Costello MD CHEMISTRY ORDERABLES [facility] [place] [address] * (ABNORMAL) Comprehensive metabolic panel (non-fasting) (11/06/2022 10:00 AM EDT) Glucose 108 65 - 199 mg/dL [facility] Comment:Diabetes: >=200 mg/d L plus symptoms Blood Urea Nitrogen 21(H) 10 - 20 mg/dL [facility] Creatinine 1.31 0.80 - 1.50 mg/dL [facility] Sodium 141 135 - 145 mmol/L [facility] Potassium 3.5 3.5 - 5.0 mmol/L [facility] Comment: Please note: ??Patients with WBC >100,000 may have falsely elevated Potassium levels. ??For accurate Potassium quantification in these patients send serum separator tube (gold top) for subsequent determinations. ??Contact the Clinical Chemistry Laboratory if there are any questions. Chloride 103 98 - 107 mmol/L [facility] Carbon Dioxide 29 22 - 31 mmol/L [facility] Anion Gap 9 5 - 15 mmol/L [facility] Calcium 8.9 8.5 - 10.5 mg/dL [facility] Protein, Total 6.6 6.1 - 8.0 g/dL [facility] Albumin 4.0 3.2 - 5.2 g/dL [facility] Aspartate Aminotransferase 37 0 - 39 unit/L [facility] Alanine Aminotransferase 57(H) 0 - 55 unit/L [facility] Alkaline Phosphatase 107 40 - 130 unit/L [facility] Bilirubin, Total 0.3 0.2 - 1.3 mg/dL [facility] Est Glomerular Filtration Rate 60 >=60 mL/min/1. 73 m?? [facility] Comment: This patient's estimated [...] Costello MD CHEMISTRY ORDERABLES Performing Organization Address City/[facility]/ZIP Co de Phone Number [facility] [place] [address] * T4, free (10/14/2022 12:23 PM EDT) Free T4 1.42 0.93 - 1.70 ng/dL [facility] Comment: Reference Interval (ng/dL): Females: ??First Trimester: 0.97-1.68 ??Second Trimester: 0.77-1.51 ??Third Trimester: 0.77-1.49 Blood 10/14/2022 12:2 3 PM EDT 10/14/2022 12:43 PM EDT Narrative Resulting Agency Comment Spec In Lab Albino Costello MD CHEMISTRY ORDERABLES Performing Organization Address City/[facility]/ZIP Co de Phone Number [facility] [place] [address] * TSH (10/14/2022 12:23 PM EDT) Thyroid Stimulating Hormone 3.13 0.27 - 4.20 mcIU/mL [facility] Comment: Reference Interval (mcIU/mL): Females: ??First Trimester: 0.23-3.88 ??Second Trimester: 0.22-3.90 ??Third Trimester: 0.44-4.66 Blood 10/14/2022 12:2 3 PM EDT 10/14/2022 12:43 PM EDT Narrative Resulting Agency Comment Spec In Lab Albino Costello MD CHEMISTRY ORDERABLES Performing Organization Address City/[facility]/ZIP Co de Phone Number [facility] [place] [address] * (ABNORMAL) Comprehensive metabolic panel (non-fasting) (10/14/2022 12:23 PM EDT) Glucose 125 65 - 199 mg/dL [facility] Comment:Diabetes: >=200 mg/d L plus symptoms Blood Urea Nitrogen 16 10 - 20 mg/dL [facility] Creatinine 1.23 0.80 - 1.50 mg/dL [facility] Sodium 138 135 - 145 mmol/L [facility] Potassium 3.9 3.5 - 5.0 mmol/L [facility] Comment: Please note: ??Patients with WBC >100,000 may have falsely elevated Potassium levels. ??For accurate Potassium quantification in these patients send serum separator tube (gold top) for subsequent determinations. ??Contact the Clinical Chemistry Laboratory if there are any questions. Chloride 105 98 - 107 mmol/L [facility] Carbon Dioxide 26 22 - 31 mmol/L [facility] Anion Gap 7 5 - 15 mmol/L [facility] Calcium 9.1 8.5 - 10.5 mg/dL [facility] Protein, Total 6.4 6.1 - 8.0 g/dL [facility] Albumin 4.0 3.2 - 5.2 g/dL [facility] Aspartate Aminotransferase 41(H) 0 - 39 unit/L [facility] Alanine Aminotransferase 87(H) 0 - 55 unit/L [facility] Alkaline Phosphatase 103 40 - 130 unit/L [facility] Bilirubin, Total 0.3 0.2 - 1.3 mg/dL [facility] Est Glomerular Filtration Rate 64 >=60 mL/min/1. 73 m?? [facility] Comment: This patient's estimated [...] Costello MD CHEMISTRY ORDERABLES Performing Organization Address City/[facility] Co de Phone Number [facility] [place] [address] * T4, free (09/16/2022 11:59 AM EDT) Free T4 1.30 0.93 - 1.70 ng/dL [facility] Comment: Reference Interval (ng/dL): Females: ??First Trimester: 0.97-1.68 ??Second Trimester: 0.77-1.51 ??Third Trimester: 0.77-1.49 Blood 09/16/2022 11:5 9 AM EDT 09/16/2022 12:13 PM EDT Narrative Resulting Agency Comment Spec In Lab Albino Costello MD CHEMISTRY ORDERABLES Performing Organization Address [facility] Co de Phone Number [facility] [place] [address] * (ABNORMAL) TSH (09/16/2022 11:59 AM EDT) Thyroid Stimulating Hormone 7.43(H) 0.27 - 4.20 mcIU/mL [facility] Comment: Reference Interval (mcIU/mL): Females: ??First Trimester: 0.23-3.88 ??Second Trimester: 0.22-3.90 ??Third Trimester: 0.44-4.66 Blood 09/16/2022 11:5 9 AM EDT 09/16/2022 12:13 PM EDT Narrative Resulting Agency Comment Spec In Lab Albino Costello MD CHEMISTRY ORDERABLES Performing Organization Address [facility] Co de Phone Number [facility] [place] [address] * (ABNORMAL) Comprehensive metabolic panel (non-fasting) (09/16/2022 11:59 AM EDT) Glucose 100 65 - 199 mg/dL [facility] Comment:Diabetes: >=200 mg/d L plus symptoms Blood Urea Nitrogen 19 10 - 20 mg/dL [facility] Creatinine 1.14 0.80 - 1.50 mg/dL [facility] Sodium 143 135 - 145 mmol/L [facility] Potassium 3.7 3.5 - 5.0 mmol/L [facility] Comment: Please note: ??Patients with WBC >100,000 may have falsely elevated Potassium levels. ??For accurate Potassium quantification in these patients send serum separator tube (gold top) for subsequent determinations. ??Contact the Clinical Chemistry Laboratory if there are any questions. Chloride 106 98 - 107 mmol/L [facility] Carbon Dioxide 30 22 - 31 mmol/L [facility] Anion Gap 7 5 - 15 mmol/L [facility] Calcium 9.0 8.5 - 10.5 mg/dL [facility] Protein, Total 6.3 6.1 - 8.0 g/dL [facility] Albumin 3.9 3.2 - 5.2 g/dL [facility] Aspartate Aminotransferase 79(H) 0 - 39 unit/L [facility] Alanine Aminotransferase 154(H) 0 - 55 unit/L [facility] Alkaline Phosphatase 99 40 - 130 unit/L [facility] Bilirubin, Total 0.3 0.2 - 1.3 mg/dL [facility] Est Glomerular Filtration Rate 70 >=60 mL/min/1. 73 m?? [facility] Comment: This patient's estimated [...] Costello MD CHEMISTRY ORDERABLES Performing Organization Address City/State/[facility] Co de Phone Number [facility] [place] [address] * T4, free (08/12/2022 8:37 AM EDT) Free T4 1.18 0.93 - 1.70 ng/dL [facility] Comment: Reference Interval (ng/dL): Females: ??First Trimester: 0.97-1.68 ??Second Trimester: 0.77-1.51 ??Third Trimester: 0.77-1.49 Blood 08/12/2022 8:37 AM EDT 08/12/2022 8:42 AM EDT Narrative Resulting Agency Comment Spec In Lab Albino Costello MD CHEMISTRY ORDERABLES Performing Organization Address [facility] Co de Phone Number [facility] [place] [address] * (ABNORMAL) TSH (08/12/2022 8:37 AM EDT) Thyroid Stimulating Hormone 16.70(H) 0.27 - 4.20 mcIU/mL [facility] Comment: Reference Interval (mcIU/mL): Females: ??First Trimester: 0.23-3.88 ??Second Trimester: 0.22-3.90 ??Third Trimester: 0.44-4.66 Blood 08/12/2022 8:37 AM EDT 08/12/2022 8:42 AM EDT Narrative Resulting Agency Comment Spec In Lab Albino Costello MD CHEMISTRY ORDERABLES Performing Organization Address [facility] Co de Phone Number [facility] [place] [address] * (ABNORMAL) Comprehensive metabolic panel (non-fasting) (08/12/2022 8:37 AM EDT) Glucose 107 65 - 199 mg/dL [facility] Comment:Diabetes: >=200 mg/d L plus symptoms Blood Urea Nitrogen 17 10 - 20 mg/dL [facility] Creatinine 1.20 0.80 - 1.50 mg/dL [facility] Sodium 144 135 - 145 mmol/L [facility] Potassium 3.8 3.5 - 5.0 mmol/L [facility] Comment: Please note: ??Patients with WBC >100,000 may have falsely elevated Potassium levels. ??For accurate Potassium quantification in these patients send serum separator tube (gold top) for subsequent determinations. ??Contact the Clinical Chemistry Laboratory if there are any questions. Chloride 108(H) 98 - 107 mmol/L [facility] Carbon Dioxide 28 22 - 31 mmol/L [facility] Anion Gap 8 5 - 15 mmol/L [facility] Calcium 8.8 8.5 - 10.5 mg/dL [facility] Protein, Total 6.2 6.1 - 8.0 g/dL [facility] Albumin 4.0 3.2 - 5.2 g/dL [facility] Aspartate Aminotransferase 42(H) 0 - 39 unit/L [facility] Alanine Aminotransferase 78(H) 0 - 55 unit/L [facility] Alkaline Phosphatase 111 40 - 130 unit/L [facility] Bilirubin, Total 0.5 0.2 - 1.3 mg/dL [facility] Est Glomerular Filtration Rate 66 >=60 mL/min/1. 73 m?? [facility] Comment: This patient's estimated [...] In Lab Albino Costello MD CHEMISTRY ORDERABLES [facility] [place] [address] * US Retroperitoneal Complete (07/13/2022 11:15 AM [...] evaluation. Electronically signed by: Josselyn Gaona MD, [facility] ([phone]), at 07/13/2022 12:50 PM Thank you for letting us participate in the care of this patient. If you are a health care provider and have any questions regarding this report, please contact the number above. For patients who have questions, please contact the health care manager cna that requested your imaging first. ?Josselyn Gaona, [facility] Vascular Physician Electronically Signed Final Report ?? 07/13/2022 12:57 pm Narrative 07/13/2022 12:58 PM EDT Renal ? (Signed Final 07/13/2022 12:57 pm) PATIENT INFO: ID #: ? [id number] ?: ??[birth year] (67 yrs)(M) Name: ? RAYMUNDO TENORIO ? Visit Date: 07/13/2022 10:56 am PERFORMED BY: Attending: ?Josselyn Gaona MD. Performed By: ? Purvi Miles RDMS Referred By: ?ALBINO COSTELLO Location: ? [place] SERVICE(S) PROVIDED: URETRO - Retroperitoneal Complete - [id number] ? [id number] INDICATIONS: Change in appearance of exophytic focus [...] 07/13/2022 12:57 pm) PATIENT INFO: ID #: [id number] : 55 (67 yrs)(M) Name: RAYMUNDO TENORIO Visit Date: 07/13/2022 10:56 am PERFORMED BY: Attending: Josselyn Gaona MD Performed By: Purvi Miles RDMS Referred By: ALBINO COSTELLO Location: [place] SERVICE(S) PROVIDED: URETRO - Retroperitoneal Complete - [id number] INDICATIONS: Change in appearance of exophytic focus [...] evaluation. Electronically signed by: Josselyn Gaona MD, [facility] ([phone]), at 07/13/2022 12:50 PM Thank you for letting us participate in the care of this patient. If you are a health care provider and have any questions regarding this report, please contact the number above. For patients who have questions, please contact the health care manager cna that requested your imaging first. Josselyn Gaona, E Vascular Physician Electronically Signed Final Report 07/13/2022 12:57 pm [...] laterality documented in this encounter Care Teams Reclaimer Relationship Specialty Start Date End Date Juan Dempsey MD [address] [place] [address] PCP - General Emergency Medicine 08/20/21 documented as of this encounter
--- OUTSIDE RECORDS SUMMARY | 2024-03-09 16:55 | XMS_ITS | Encounter Summary ---
Author Organization Formerly [facility] Address [facility] [address] Care Team Providers Care Liner Machine Operator Name Role Phone Juan Dempsey MD Primary Care Provider [phone] Encounter Details Date Type Department Care Team [...] [facility] Hematology Oncology [address] [place] [address] 03/29/2024 12:[address] [place] [place] [address] Albino Bartholomew MD [facility] [place] [address] 04/05/2024 10:00 AM EST Office Visit Hematology [place] [address] Albino Bartholomew MD [facility] [address] [place] [address] documented as of this encounter Visit Diagnoses Not on filedocumented in this encounter Care Teams Liner Machine Operator Relationship Specialty Start Date End Date Juan Dempsey MD [address] [place] [address] PCP - General Emergency Medicine 08/20/21 documented as of this encounter
--- OUTSIDE RECORDS SUMMARY | 2024-03-09 16:55 | XMS_ITS | Encounter Summary ---
Author Organization [facility] Address [facility] [place] [address] Care Team Providers Care Water Truck Driver Name Role Phone Juan Dempsey MD Primary Care Provider [phone] Encounter Details Date Type Department Care Team (Latest Contact Info) Description 05/20/2022 7:47 AM EST - 05/20/2022 11:59 PM EST Hospital Encounter Hematology [place] [phone] Drug-induced liver injury; Metastatic renal cell carcinoma [...] Lab at [facility] Hematology Oncology [address] [place] [address] 03/29/2024 12:[address] [place] [address] Albino Bartholomew MD [facility] [address] [place] [address] 04/05/2024 10:00 AM EST Office Visit Hematology [place] [address] Albino Bartholomew MD [facility] [address] [place] [address] Scheduled Orders Name Type Priority Associated Diagnoses [...] Bilirubin, Direct (05/20/2022 7:56 AM EST) Pathologist [facility] Bilirubin, Direct 0.1 0.0 - 0.3 mg/dL [facility] Blood 05/20/2022 7:56 AM EST 05/20/2022 8:02 AM EST Narrative Resulting Agency Comment Spec In Lab Ana Pringle MD CHEMISTRY ORDERABLES [facility] [place] [address] * Differential, Automated (05/20/2022 7:56 AM EST) Neutrophil % 62.0 % [facility] Neutrophil Absolute 4.46 1.70 - 6.10 x10(3)/[facility] Lymph % 30.3 % [facility] Lymphocytes Abs 2.2 0.9 - 3.2 x10(3)/[facility] Monocyte % 4.6 % [facility] Monocyte Abs 0.3 0.3 - 0.9 x10(3)/[facility] Eos % 2.2 % [facility] Eosinophils Abs 0.2 0.0 - 0.4 x10(3)/[facility] Basophil % 0.8 % [facility] Baso Absolute 0.1 0.0 - 0.1 x10(3)/[facility] Immature Gran % 0.10 % [facility] Comment: Immature granulocytes(IG's)percentage and absolute count will include metamyelocytes, myelocytes, and promyelocytes. Blood smears from CBCs yielding IG's will be scanned manually for concordance. If this scan disagrees with the automated IG or if promyelocytes are noted, a manual differential will be performed. Immature Gran Absolute 0.01 0.00 - 0.04 x10(3)/[facility] Blood 05/20/2022 7:56 AM EST 05/20/2022 8:02 AM EST Narrative Resulting Agency Comment Spec In Lab Albino Bartholomew MD HEMATOLOGY ORDERABLE S Performing Organization Address City/State/[facility] Co de Phone Number [facility] [place] [address] * (ABNORMAL) Hemogram (05/20/2022 7:56 AM EST) White Blood Cell 7.2 4.0 - 9.5 x10(3)/mc L [facility] Red Blood Cell 4.46(L) 4.58 - 5.54 x10(6)/ L [facility] Hemoglobin 13.7 13.7 - 16.5 g/dL [facility] Hematocrit 39.8(L) 40.5 - 48.5 % [facility] Mean Cell Volume 89.2 82.9 - 93.1 fL [facility] Mean Cell Hemoglobin 30.7 27.5 - 32.1 pg [facility] Mean Cell Hemoglobin Concentration 34.4 32.0 - 35.7 g/dL [facility] Platelet 158 145 - 357 x10(3)/mc L [facility] RDW Standard Deviation 56.8(H) 36.0 - 45.0 fL [facility] RDW coefficient of variation 17.4(H) 11.4 - 13.8 % [facility] Mean Platelet Volume 9.9 7.6 - 12.9 fL [facility] NRBC% auto 0.0 % [facility] NRBC Absolute 0.000 0.000 - 0.000 x10(3)/mc L [facility] Blood 05/20/2022 7:56 AM EST 05/20/2022 8:02 AM EST Narrative Resulting Agency Comment Spec In Lab Albino Bartholomew MD HEMATOLOGY ORDERABLE S [facility] [place] [address] * (ABNORMAL) Comprehensive metabolic panel (non-fasting) (05/20/2022 7:56 AM EST) Glucose 103 65 - 199 mg/dL [facility] Comment:Diabetes: >=200 mg/d L plus symptoms Blood Urea Nitrogen 31(H) 10 - 20 mg/dL [facility] Creatinine 1.71(H) 0.80 - 1.50 mg/dL [facility] Sodium 141 135 - 145 mmol/L [facility] Potassium 3.4(L) 3.5 - 5.0 mmol/L [facility] Comment: Please note: ??Patients with WBC >100,000 may have falsely elevated Potassium levels. ??For accurate Potassium quantification in these patients send serum separator tube (gold top) for subsequent determinations. ??Contact the Clinical Chemistry Laboratory if there are any questions. Chloride 104 98 - 107 mmol/L [facility] Carbon Dioxide 26 22 - 31 mmol/L [facility] Anion Gap 11 5 - 15 mmol/L [facility] Calcium 9.4 8.5 - 10.5 mg/dL [facility] Protein, Total 6.5 6.1 - 8.0 g/dL [facility] Albumin 4.0 3.2 - 5.2 g/dL [facility] Aspartate Aminotransferase 62(H) 0 - 39 unit/L [facility] Alanine Aminotransferase 160(H) 0 - 55 unit/L [facility] Alkaline Phosphatase 122 40 - 130 unit/L [facility] Bilirubin, Total 0.5 0.2 - 1.3 mg/dL [facility] Est Glomerular Filtration Rate 43(L) >=60 mL/min/1. 73 m?? [facility] [...] CHEMISTRY ORDERABLES Performing Organization Address City/[facility] Co de Phone Number [facility] [place] [address] * (ABNORMAL) TSH (05/20/2022 7:56 AM EST) Thyroid Stimulating Hormone 14.70(H) 0.27 - 4.20 mcIU/mL [facility] Comment: Reference Interval (mcIU/mL): Females: ??First Trimester: 0.23-3.88 ??Second Trimester: 0.22-3.90 ??Third Trimester: 0.44-4.66 Blood 05/20/2022 7:56 AM EST 05/20/2022 8:02 AM EST Narrative Resulting Agency Comment Spec In Lab Albino Bartholomew MD CHEMISTRY ORDERABLES [facility] [place] [address] * T4, free (05/20/2022 7:56 AM EST) Free T4 1.38 0.93 - 1.70 ng/dL [facility] Comment: Reference Interval (ng/dL): Females: ??First Trimester: 0.97-1.68 ??Second Trimester: 0.77-1.51 ??Third Trimester: 0.77-1.49 Blood 05/20/2022 7:56 AM EST 05/20/2022 8:02 AM EST Narrative Resulting Agency Comment Spec In Lab Albino Bartholomew MD CHEMISTRY ORDERABLES Performing Organization Address City/State/[facility] Co de Phone Number [facility] [place] [address] documented in this encounter Visit Diagnoses Diagnosis 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
--- OUTSIDE RECORDS SUMMARY | 2024-03-09 16:55 | XMS_ITS | Encounter Summary ---
Author Organization [facility] Address [facility] [place] [address] Care Team Providers Care Teletype Or Varitype Keyboard Operator Name Role Phone Juan Dempsey MD Primary Care Provider [phone] Encounter Details Date Type Department Care Team [...] [facility] Hematology Oncology [address] [place] [address] 03/29/2024 12:[address] [place] [address] Albino Bartholomew MD [facility] DR HEMATOLOGY [place] [address] 04/05/2024 10:00 AM EST Office Visit Hematology [place] [address] Albino Bartholomew MD [facility] DR HEMATOLOGY [place] [address] documented as of this encounter Visit Diagnoses Not on filedocumented in this encounter Care Teams Teletype Or Varitype Keyboard Operator Relationship Specialty Start Date End Date Juan Dempsey MD [address] [place] [address] PCP - General Emergency Medicine 08/20/21 documented as of this encounter
--- OUTSIDE RECORDS SUMMARY | 2024-03-09 16:55 | XMS_ITS | Encounter Summary ---
Author Organization Formerly [facility] Address [facility] [place] [address] Care Team Providers Care College Hire Name Role Phone Juan Dempsey MD Primary Care Provider [phone] Reason for Visit * Reason Comments Medication Refill Encounter Details Date Type Department Care Team (Late st Contact Info) Description 05/26/2022 Specialty [place] [phone] Sharda Lee, [facility] Social [...] Plan: Refill Specialty Pharmacy Consultation; Sharda Lee [facility] Comprehensive [...] ??? Peanut Medication Reconciliation Discrepancies (compared to [facility] med list) No Specialty Pharmacy [...] [facility] Hematology Oncology [address] [place] [address] 03/29/2024 12:[address] [place] [address] Albino Bartholomew MD [facility] DR HEMATOLOGY [place] [address] 04/05/2024 10:00 AM EST Office Visit [place]ology [place] [address] Albino Bartholomew MD [facility] DR HEMATOLOGY [place] [address] documented as of this encounter Visit Diagnoses Not on filedocumented in this encounter Care Teams College Hire Relationship Specialty Start Date End Date Juan Dempsey MD [address] [place] [address] PCP - General Emergency Medicine 08/20/21 documented as of this encounter
--- OUTSIDE RECORDS SUMMARY | 2024-03-09 16:55 | XMS_ITS | Encounter Summary ---
Author Organization [facility] Address [facility] [place] [address] Care Team Providers Care Principal Process Engineer Name Role Phone Juan Dempsey MD Primary Care Provider [phone] Encounter Details Date Type Department Care Team (Late st Contact Info) Description 06/10/2022 External Results [place] [phone] Rachell Shrestha, RN Social History Tobacco Use [...] [facility] Hematology Oncology [address] [place] [address] 03/29/2024 12:[address] [place] [address] Albino Bartholomew MD [facility] DR HEMATOLOGY [place] [address] 04/05/2024 10:00 AM EST Office Visit Hematology [place] [address] Albino Bartholomew MD [facility] DR HEMATOLOGY [place] [address] documented as of this encounter Procedures Procedure [...] on filedocumented in this encounter Care Teams Principal Process Engineer Relationship Specialty Start Date End Date Juan Dempsey MD [address] [place] [address] PCP - General Emergency Medicine 08/20/21 documented as of this encounter
--- OUTSIDE RECORDS SUMMARY | 2024-03-09 16:55 | XMS_ITS | Encounter Summary ---
Author Organization [facility] [place] [address] Care Team Providers Care Maintainer Central Office Name Role Phone Juan Dempsey MD Primary Care Provider [phone] Reason for Referral * Diagnostic Test (Routine) - Closed Specialty Diagnoses / Procedures Referred By Contac t Referred To Contact Radiology Diagnoses Metastatic renal cell carcinoma to lung, unspecified laterality Procedures CT Chest Abdomen Pelvis w Contrast (Generic) Albino Bartholomew MD [facility] [address] [place] [address] [facility] [place] [address] Referral ID Status Reason Start Date Expiration Date V isits Requested Visits Authorized [id number] Closed Specialty Service Requested 05/20/2022 11/18/2023 1 1 Reason for Visit * Diagnostic Test (Routine) - Closed Specialty Diagnoses / Procedures Referred By Contac t Referred To Contact Radiology Diagnoses Metastatic renal cell carcinoma to lung, unspecified laterality Procedures CT Chest Abdomen Pelvis w Contrast (Generic) Albino Bartholomew MD [facility] [place] [address] [facility] [place] [address] Referral ID Status Reason Start Date Expiration Date V isits Requested Visits Authorized [id number] Closed Specialty Service Requested 05/20/2022 11/18/2023 1 1 Encounter Details Date Type Department Care Team (Latest Contact Info) Description 06/26/2022 10:53 AM EST - 06/26/2022 11:02 AM EST Hospital [place] [address] Albino Bartholomew MD [facility] DR [place] [address] Metastatic renal cell carcinoma to [...] [facility] Hematology Oncology [address] [place] [address] 03/29/2024 12:[address] [place] [address] Albino Bartholomew MD [facility] [place] [address] 04/05/2024 10:00 AM EST Office Visit Hematology and Oncology at [facility] [place] [address] Albino Bartholomew MD [facility] DR [place] [address] documented as of this encounter Procedures Procedure [...] questions please contact the health acute care surgeon that requested your imaging first. ? Narrative [...] mLs documented in this encounter Care Teams Maintainer Central Office Relationship Specialty Start Date End Date Juan Dempsey MD [address] [place] [address] PCP - General Emergency Medicine 08/20/21 documented as of this encounter
--- OUTSIDE RECORDS SUMMARY | 2024-03-09 16:55 | XMS_ITS | Encounter Summary ---
Author Organization [facility] Address [facility] [place] [address] Care Team Providers Care Customer Sales Advisor Name Role Phone Juan Dempsey MD Primary Care Provider [phone] Encounter Details Date Type Department Care Team (Latest Contact Info) Description 05/22/2022 9:30 AM EST TH Visit (TeleHealth) [place] [phone] Ana Pringle MD [facility] [address] Drug-induced liver injury; Autoimmune hepatitis Social History [...] (Left); Achilles tendon surgery; Remv Kidney, Radical (18640) (Left, 06/23/2021); Cystourethroscopy (24306) (N/A, 06/23/2021); Colonoscopy, Diagnostic (94407) (N/A, 10/02/2021); and CT Guided Biopsy Lung [...] with patient on above. Was located in [place] at the time ofthis encounter. Approximae time in review of records and documentation 5 minutes. Approximate totaltime devoted to this single encounter on the day of the encounter: 25 minutes Ana Pringle MD [facility] [place] [address] documented in this encounter Plan of Treatment Upcoming Encounters Date Type Department Care Team (Late st Contact Info) Description 03/29/2024 10:30 AM EST Laboratory Appointment Lab at [facility] Hematology Oncology [address] [place] [address] 03/29/2024 12:[address] [place] [place] [address] Albino Bartholomew MD [facility] DR HEMATOLOGY [place] [address] 04/05/2024 10:00 AM EST Office Visit Hematology [place] [address] Albino Bartholomew MD [facility] DR HEMATOLOGY [place] [address] documented as of this encounter Visit Diagnoses Diagnosis Drug-induced liver injury Autoimmune hepatitis documented in this encounter Care Teams Customer Sales Advisor Relationship Specialty Start Date End Date Juan Dempsey MD [address] [place] [address] PCP - General Emergency Medicine 08/20/21 documented as of this encounter
--- OUTSIDE RECORDS SUMMARY | 2024-03-09 16:55 | XMS_ITS | Encounter Summary ---
Author Organization [facility] [place] [address] Care Team Providers Care Repair Manager Name Role Phone Juan Dempsey MD Primary Care Provider [phone] Reason for Referral * Diagnostic Test (Routine) - Closed Specialty Diagnoses / Procedures Referred By Contac t Referred To Contact Radiology Diagnoses Right kidney mass Renal cell carcinoma of left kidney Procedures MRI Abdomen wwo Contrast (Generic) Albino Bartholomew MD [facility] DR HEMATOLOGY [place] [address] [place] [address] Referral ID Status Reason Start Date Expiration Date V isits Requested Visits Authorized [id number] Closed Specialty Service Requested 07/22/2022 01/23/2024 1 1 Reason for Visit * Diagnostic Test (Routine) - Closed Specialty Diagnoses / Procedures Referred By Contac t Referred To Contact Radiology Diagnoses Right kidney mass Renal cell carcinoma of left kidney Procedures MRI Abdomen wwo Contrast (Generic) Albino Bartholomew MD [facility] HEMATOLOGY [place] [address] [facility] [place] [address] Referral ID Status Reason Start Date Expiration Date V isits Requested Visits Authorized [id number] Closed Specialty Service Requested 07/22/2022 01/23/2024 1 1 Encounter Details Date Type Department Care Team (Latest Contact Info) Description 08/12/2022 6:48 AM EDT - 08/12/2022 8:26 AM EDT Hospital Encounter MRI at [facility] [place] [address] Albino Bartholomew MD [facility] DR HEMATOLOGY [place] [address] Right kidney mass; Renal cell [...] AM EST Laboratory Appointment Lab at [facility] Hematology Oncology [address] [place] [address] 03/29/2024 12:[address] [place] [address] Albino Bartholomew MD [facility] HEMATOLOGY [place] [address] 04/05/2024 10:00 AM EST Office Visit Hematology and Oncology at [facility] [place] [address] Albino Bartholomew MD [facility] DR HEMATOLOGY [place] [address] documented as of this encounter Procedures Procedure [...] questions please contact the health primary care physician that requested your imaging first. ? Narrative [...] 02/06/2022, CT chest abdomen pelvis 06/26/2022 FINDINGS: Security Intern Images: Noncontributory. Right Kidney: Lesion of concern [...] 02/06/2022, CT chest abdomen pelvis 06/26/2022 FINDINGS: Security Intern Images: Noncontributory. Right Kidney: Lesion of concern [...] have questions please contactthe health primary care physician that requested your imaging first. Electronically signed by: Jd Muller DO, [facility]([phone]), at 08/12/2022 9:58 AM Albino Bartholomew MD [facility] MRI ORDERABLES documented in this encounter Visit [...] mLs documented in this encounter Care Teams Repair Manager Relationship Specialty Start Date End Date Juan Dempsey MD [address] [place] [address] PCP - General Emergency Medicine 08/20/21 documented as of this encounter
--- OUTSIDE RECORDS SUMMARY | 2024-03-09 16:55 | XMS_ITS | Encounter Summary ---
Author Organization [facility] Address [facility] [place] [address] Care Team Providers Care Buffer Nickel Name Role Phone Juan Dempsey MD Primary Care Provider [phone] Encounter Details Date Type Department Care Team (Late st Contact Info) Description 05/11/2022 Telephone [place] [address] Tamiko Clark Social History Tobacco [...] [facility] Hematology Oncology [address] [place] [address] 03/29/2024 12:[address] [place] [address] Albino Bartholomew MD [facility] [place] [address] 04/05/2024 10:00 AM EST Office Visit Hematology [place] [address] Albino Bartholomew MD [facility] [place] [address] documented as of this encounter Visit Diagnoses Not on filedocumented in this encounter Care Teams Buffer Nickel Relationship Specialty Start Date End Date Juan Dempsey MD [address] [place] [address] PCP - General Emergency Medicine 08/20/21 documented as of this encounter
--- OUTSIDE RECORDS SUMMARY | 2024-03-09 16:55 | XMS_ITS | Encounter Summary ---
Author Organization [place] [address] Care Team Providers Care Purchasing Expeditor Name Role Phone Juan Dempsey MD Primary Care Provider [phone] Reason for Referral * Diagnostic Test (Routine) - Closed Specialty Diagnoses / Procedures Referred By Contac t Referred To Contact Radiology Diagnoses Right kidney mass Renal cell carcinoma of left kidney Procedures MRI Abdomen wwo Contrast (Generic) Albino Bartholomew MD [facility] DR [place] [address] [place] [address] Referral ID Status Reason Start Date Expiration Date V isits Requested Visits Authorized [id number] Closed Specialty Service Requested 07/22/2022 01/23/2024 1 1 Encounter Details Date Type Department Care Team (Late st Contact Info) Description 07/22/2022 Orders Only [place] [address] Albino Bartholomew MD [facility] [place] [address] Right kidney mass (Primary Dx); [...] 10:30 AM EST Laboratory Appointment Lab at [facility] Hematology Oncology [address] [place] [address] 03/29/2024 12:[address] [place] [address] Albino Bartholomew MD [facility] [place] [address] 04/05/2024 10:00 AM EST Office Visit Hematology and Oncology at [facility] [place] [address] Albino Bartholomew MD [facility] DR [place] [address] documented as of this encounter Results * [...] have questions please contact the health childcare center administrator that requested your imaging first. [...] 02/06/2022, CT chest abdomen pelvis 06/26/2022 FINDINGS: Vacuum Metalizing Supervisor Images: Noncontributory. Right Kidney: Lesion of concern [...] 02/06/2022, CT chest abdomen pelvis 06/26/2022 FINDINGS: Vacuum Metalizing Supervisor Images: Noncontributory. Right Kidney: Lesion of concern [...] who have questions please contactthe health childcare center administrator that requested your imaging first. Albino Bartholomew MD IM[facility] MRI ORDERABLES documented in this encounter Visit Diagnoses Diagnosis Right kidney mass- Primary Unspecified disorder of kidney and ureter Renal cell carcinoma of left kidney Right kidney mass Unspecified disorder of kidney and ureter Renal cell carcinoma of left kidney documented in this encounter Care Teams Purchasing Expeditor Relationship Specialty Start Date End Date Juan Dempsey MD [address] [place] [address] PCP - General Emergency Medicine 08/20/21 documented as of this encounter
--- OUTSIDE RECORDS SUMMARY | 2024-03-09 16:55 | XMS_ITS | Encounter Summary ---
Author Organization [facility] Address [facility] [place] [address] Care Team Providers Care Braid Pattern Setter Name Role Phone Juan Dempsey MD Primary Care Provider [phone] Encounter Details Date Type Department Care Team (Late st Contact Info) Description 06/18/2022 Abstract [place] [address] Ana Pringle MD [facility] [place] [address] Social History Tobacco Use Types Packs/Day Years [...] [facility] Hematology Oncology [address] [place] [address] 03/29/2024 12:[address] [place] [address] Albino Bartholomew MD [facility] DR [place] [address] 04/05/2024 10:00 AM EST Office Visit Hematology [place] [address] Albino Bartholomew MD [facility] DR [place] [address] documented as of this encounter Visit Diagnoses Not on filedocumented in this encounter Care Teams Braid Pattern Setter Relationship Specialty Start Date End Date Juan Dempsey MD [address] [place] [address] PCP - General Emergency Medicine 08/20/21 documented as of this encounter
--- OUTSIDE RECORDS SUMMARY | 2024-03-09 16:55 | XMS_ITS | Encounter Summary ---
Author Organization [facility] Address [facility] [place] [address] Care Team Providers Care Blankbook Stitching Machine Operator Name Role Phone Juan Dempsey MD Primary Care Provider [phone] Reason for Visit * Reason Comments Specialty Pharmacy Review Cabometyx 40mg tablet Encounter Details Date Type Department Care Team (Late st Contact Info) Description 06/26/2022 Specialty Pharm[place] [address] Kelin Chong, [facility] Social History Tobacco Use Types [...] Chong - 06/26/2022 11:59 PM EST [facility] Hematology Oncology [address] [place] [address] 03/29/2024 12:[address] [place] [address] Albino Bartholomew MD [facility] DR [place] [address] 04/05/2024 10:00 AM EST Office Visit Hematology [place] [address] Albino Bartholomew MD [facility] DR [place] [address] documented as of this encounter Visit Diagnoses Not on filedocumented in this encounter Care Teams Blankbook Stitching Machine Operator Relationship Specialty Start Date End Date Juan Dempsey MD [address] [place] [address] PCP - General Emergency Medicine 08/20/21 documented as of this encounter
--- OUTSIDE RECORDS SUMMARY | 2024-03-09 16:55 | XMS_ITS | Encounter Summary ---
Author Organization [facility] Address [facility] [place] [address] Care Team Providers Care Preparation Room Manager Name Role Phone Juan Dempsey MD Primary Care Provider [phone] Reason for Visit * Reason Comments Specialty Refill Management Encounter Details Date Type Department Care Team (Late st Contact Info) Description 06/26/2022 Specialty [place] [address] Reshma Gar, [facility] Social [...] Notes * Reshma Gar [facility] - 06/26/2022 3:51 PM EST Clinical Management Plan: Refill Specialty Pharmacy Consultation; Reshma Gar [facility] Comprehensive [...] ??? Peanut Medication Reconciliation Discrepancies (compared to [facility] med list) No Specialty Pharmacy [...] were made. Reshma Gar [facility] 06/26/22 3:53 PM documented in this encounter Plan of Treatment Upcoming Encounters Date Type Department Care Team (Late st Contact Info) Description 03/29/2024 10:30 AM EST Laboratory Appointment Lab at [facility] Hematology Oncology [address] [place] [address] 03/29/2024 12:[address] [place] [place] [address] Albino Bartholomew MD [facility] DR [place] [address] 04/05/2024 10:00 AM EST Office Visit [place]ology [place] [address] Albino Bartholomew MD [facility] [place] [address] documented as of this encounter Visit Diagnoses Not on filedocumented in this encounter Care Teams Preparation Room Manager Relationship Specialty Start Date End Date Juan Dempsey MD [address] [place] [address] PCP - General Emergency Medicine 08/20/21 documented as of this encounter
--- OUTSIDE RECORDS SUMMARY | 2024-03-09 16:55 | XMS_ITS | Encounter Summary ---
Author Organization [facility] Address [facility] [place] [address] Care Team Providers Care Grey Iron Molder Name Role Phone Juan Dempsey MD Primary Care Provider [phone] Encounter Details Date Type Department Care Team (Late st Contact Info) Description 06/18/2022 External Results [place] [address] Ana Pringle MD [facility] [place] [address] Social History Tobacco Use Types Packs/Day Years [...] [facility] Hematology Oncology [address] [place] [address] 03/29/2024 12:[address] [place] [place] [address] Albino Bartholomew MD [facility] DR [place] [address] 04/05/2024 10:00 AM EST Office Visit [place]ology [place] [address] Albino Bartholomew MD [facility] DR [place] [address] documented as of this encounter Procedures Procedure [...] on filedocumented in this encounter Care Teams Grey Iron Molder Relationship Specialty Start Date End Date Juan Dempsey MD [address] [place] [address] PCP - General Emergency Medicine 08/20/21 documented as of this encounter
--- OUTSIDE RECORDS SUMMARY | 2024-03-09 16:55 | XMS_ITS | Encounter Summary ---
Author Organization [facility] Address [facility] [place] [address] Care Team Providers Care Television Maintenance Man Name Role Phone Juan Dempsey MD Primary Care Provider [phone] Encounter Details Date Type Department Care Team [...] [facility] Hematology Oncology [address] [place] [address] 03/29/2024 12:[address] [place] [address] Albino Bartholomew MD [facility] DR [place] [address] 04/05/2024 10:00 AM EST Office Visit Hematology [place] [address] Albino Bartholomew MD [facility] DR [place] [address] documented as of this encounter Visit Diagnoses Not on filedocumented in this encounter Care Teams Television Maintenance Man Relationship Specialty Start Date End Date Juan Dempsey MD [address] [place] [address] PCP - General Emergency Medicine 08/20/21 documented as of this encounter
--- OUTSIDE RECORDS SUMMARY | 2024-03-09 16:55 | XMS_ITS | Encounter Summary ---
Author Organization [facility] Address [facility] [address] Care Team Providers Care Learning Disabilities Resource Teacher Name Role Phone Juan Dempsey MD Primary Care Provider [phone] Reason for Visit * Reason Comments Medication Refill Encounter Details Date Type Department Care Team (Late st Contact Info) Description 07/27/2022 Specialty [place] [address] Talisha Holt, [facility] Social History Tobacco Use Types [...] Specialty Pharmacy Consultation; Talisha Holt [facility] Comprehensive Medication Management (CMM) Cristofer Perezraymond [...] ??? Peanut Medication Reconciliation Discrepancies (compared to [facility] med list) No Specialty Pharmacy [...] [facility] Hematology Oncology [address] [place] [address] 03/29/2024 12:[address] [place] [address] Albino Bartholomew MD [facility] DR HEMATOLOGY [place] [address] 04/05/2024 10:00 AM EST Office Visit [place]ematology [place] [address] Albino Bartholomew MD [facility] DR HEMATOLOGY [place] [address] documented as of this encounter Visit Diagnoses Not on filedocumented in this encounter Care Teams Learning Disabilities Resource Teacher Relationship Specialty Start Date End Date Juan Dempsey MD [address] [place] [address] PCP - General Emergency Medicine 08/20/21 documented as of this encounter
--- OUTSIDE RECORDS SUMMARY | 2024-03-09 16:56 | XMS_ITS | Encounter Summary ---
Author Organization [facility] Address [facility] [place] [address] Care Team Providers Care Machine Operator General Name Role Phone Juan Dempsey MD Primary Care Provider [phone] Encounter Details Date Type Department Care Team (Late st Contact Info) Description 04/02/2022 Telephone Hematology [place] [address] Daxa Arriola RN Social [...] Nursing: check CMP for liver enzymes at [facility] in 2 weeks Next visit [...] Albino ?? Message sent to pt via [facility]. Gilson Tobar RN to follow-up on 04/07. documented in this encounter Plan of Treatment Upcoming Encounters Date Type Department Care Team (Late st Contact Info) Description 03/29/2024 10:30 AM EST Laboratory Appointment Lab at [facility] Hematology Oncology [address] [place] [address] 03/29/2024 12:[address] [place] [address] [facility] [place] [address] 04/05/2024 10:00 AM EST Office Visit Hematology [place] [address] [facility] [place] [address] documented as of this encounter Procedures Procedure Name Priority Date/Time Associated Diagnosis Comments CBC (WITH DIFF) Routine 04/01/2022 2:14 PM EST COMPREHENSIVE METABOLIC PANEL Routine 04/01/2022 2:14 PM EST documented in this encounter Results * (ABNORMAL) CBC (with Diff) (04/01/2022 2:14 PM EST) Pathologist [facility] White Blood Cell 10.39 4.4 - 10.8 [facility] Red Blood Cell 5.25 4.36 - 5.78 [facility] Hemoglobin 15.1 13.5 - 17.5 [facility] Hematocrit 44.4 40.0 - 50.0 [facility] Platelet 199 130 - 400 MANOJ ZEPEDA [facility] Neutrophil Absolute (ANC) - Automated 7.43(A) 1.2 - 6.7 [facility] Blood 04/01/2022 2:14 PM EST Historical Provider HEMATOLOGY PRANAV STRATTON [facility] [address] [facility] [address] [phone] * (ABNORMAL) Comprehensive metabolic panel (non-fasting) (04/01/2022 2:14 PM EST) Pathologist [facility] Emergency Department Glucose 122(H) 74 - 106 MANOJ ZEPEDA [facility] Blood Urea Nitrogen 25(H) 7 - 18 [facility] Creatinine 1. 8(H) 0.70 - 1.30 [facility] Sodium 135(L) 136 - 145 [facility] Potassium 3.1(L) 3.5 - 5.1 [facility] Chloride 98 98 - 107 MANOJ RN [facility] Carbon Dioxide 32 21 - 32 [facility] Calcium 8.8 8.5 - 10.1 [facility] [...] CHEMISTRY ORDERAB LES [facility] [address] [place] [address] [address] [phone] documented in this encounter Visit Diagnoses Not on filedocumented in this encounter Care Teams Machine Operator General Relationship Specialty Start Date End Date Juan Dempsey MD [address] [place] [address] PCP - General Emergency Medicine 08/20/21 documented as of this encounter
--- OUTSIDE RECORDS SUMMARY | 2024-03-09 16:56 | XMS_ITS | Encounter Summary ---
Author Organization [facility] Address [facility] [place] [address] Care Team Providers Care Water Purifier Operator Name Role Phone Juan Dempsey MD Primary Care Provider [phone] Encounter Details Date Type Department Care Team (Late st Contact Info) Description 04/29/2022 Orders Only [place]ematology [place] [address] Albino Bartholomew MD [facility] DR [place] [address] Social History Tobacco Use Types Packs/Day Years [...] [facility] [place] Oncology [address] [place] [address] 03/29/2024 12:[address] [place] [place] [address] Albino Bartholomew MD [facility] DR [place] [address] 04/05/2024 10:00 AM EST Office Visit [place]ematology [place] [address] Albino Bartholomew MD [facility] DR [place] [address] documented as of this encounter Visit Diagnoses Not on filedocumented in this encounter Care Teams Water Purifier Operator Relationship Specialty Start Date End Date Juan Dempsey MD [address] [place] [address] PCP - General Emergency Medicine 08/20/21 documented as of this encounter
--- OUTSIDE RECORDS SUMMARY | 2024-03-09 16:56 | XMS_ITS | Encounter Summary ---
Author Organization Count Includes [facility] Address [facility] [address] Care Team Providers Care Imaging Science Professor Name Role Phone Juan Dempsey MD Primary Care Provider [phone] Reason for Visit * Reason Comments Patient Education Encounter Details Date Type Department Care Team (Late st Contact Info) Description 02/19/2022 Specialty [place] [address] Sharda Lee, [facility] Social History Tobacco Use Types [...] patient from the cancer center such as clinical rn liaison consultation or manager social. Administration on an empty stomach, allergies, dosage, [...] Requirements: No Medication reconciliation discrepancies (compared to [facility] med list): None Medication List: Current Outpatient [...] History Administered Date(s) Administered ??? Moderna Covid-19 (Ward Clerk 100mcg) Vaccine 07/03/2020, 07/31/2020, 02/24/2021 ??? Zoster, Recombinant 03/16/2019 Assessment and Recommendations: Patient Counseling Patient informed of specialty services: Yes Patient accepted offer to guidance counselor: adherence/missed doses, cost of medications/cost implications, [...] Social Assessment: Does patient have a primary care transition coordinator: No Does patient have an emergency contact on file: Yes Does patient need referral to manager social: No Does patient need referral to advocacy [...] and that [facility] is providing recommendations (summary located at top of note) for provider review and follow up. Sharda Lee RPH 02/26/22 2:21 PM documented in this encounter Plan of Treatment Upcoming Encounters Date Type Department Care Team (Late st Contact Info) Description 03/29/2024 10:30 AM EST Laboratory Appointment Lab at [facility] [place] Oncology [address] [place] [address] 03/29/2024 12:[address] [place] [address] Albino Bartholomew MD [facility] [address] [place] [address] 04/05/2024 10:00 AM EST Office Visit [place] [address] Albino Bartholomew MD [facility] [place] [address] documented as of this encounter Visit Diagnoses Not on filedocumented in this encounter Care Teams Imaging Science Professor Relationship Specialty Start Date End Date Juan Dempsey MD [address] [place] [address] PCP - General Emergency Medicine 08/20/21 documented as of this encounter
--- OUTSIDE RECORDS SUMMARY | 2024-03-09 16:56 | XMS_ITS | Encounter Summary ---
Author Organization [facility] Address [facility] [place] [address] Care Team Providers Care Mathematical Physicist Name Role Phone Juan Dempsey MD Primary Care Provider [phone] Reason for Visit * Reason Comments Specialty Refill Management Cabometyx 60 mg tabs Encounter Details Date Type Department Care Team (Late st Contact Info) Description 03/19/2022 Specialty [place] [phone] Jonas Vásquez, [facility] Social History Tobacco Use Types Packs/Day [...] ??? Peanut Medication Reconciliation Discrepancies (compared to [facility] med list) No Specialty Pharmacy [...] [facility] Hematology Oncology [address] [place] [address] 03/29/2024 12:[address] [place] [address] Albino Bartholomew MD [facility] DR HEMATOLOGY [place] [address] 04/05/2024 10:00 AM EST Office Visit Hematology [place] [address] Albino Bartholomew MD [facility] DR HEMATOLOGY [place] [address] documented as of this encounter Visit Diagnoses Not on filedocumented in this encounter Care Teams Mathematical Physicist Relationship Specialty Start Date End Date Juan Dempsey MD [address] [place] [address] PCP - General Emergency Medicine 08/20/21 documented as of this encounter
--- OUTSIDE RECORDS SUMMARY | 2024-03-09 16:56 | XMS_ITS | Encounter Summary ---
Author Organization [facility] Address [facility] [place] [address] Care Team Providers Care Sheet Rock Layer Name Role Phone Juan Dempsey MD Primary Care Provider [phone] Encounter Details Date Type Department Care Team (Late st Contact Info) Description 02/19/2022 Telephone [place]ematology [place] [address] Rose Mary Abarca TIRE BUSTER ROOM Social History Tobacco Use Types Packs/Day [...] 02/19/2022 9:38 AM EDT Message received from psychiatric secretary: [phone] Cristofer asks for a call back He [...] [facility] Hematology Oncology [address] [place], [place] [id number] 03/29/2024 12:[address] [place] [place] [address] Albino Bartholomew MD [facility] DR [place] [address] 04/05/2024 10:00 AM EST Office Visit [place]ematology [place] [address] Albino Bartholomew MD [facility] [place] [address] documented as of this encounter Visit Diagnoses Not on filedocumented in this encounter Care Teams Sheet Rock Layer Relationship Specialty Start Date End Date Juan Dempsey MD [address] [place] [address] PCP - General Emergency Medicine 08/20/21 documented as of this encounter
--- OUTSIDE RECORDS SUMMARY | 2024-03-09 16:56 | XMS_ITS | Encounter Summary ---
Author Organization [facility] Address [facility] [place] [address] Care Team Providers Care Liquid Sugar Melter Name Role Phone Juan Dempsey MD Primary Care Provider [phone] Reason for Visit * Reason Comments Genetic Evaluation * Consultation (Routine) - Closed Specialty Diagnoses / Procedures Referred By Burak mcnair Referred To Contact Hematology and Oncology Diagnoses Family history of melanoma History of renal carcinoma Oli Winter MD [address] [facility] [place] [address] [facility] [address] [place] [address] Referral ID Status Reason Start Date Expiration Date V isits Requested Visits Authorized [id number] Closed Consult, Test & Treat 10/28/2021 10/28/2022 1 1 Encounter Details Date Type Department Care Team (Late st Contact Info) Description 02/20/2022 10:00 AM EDT TH Visit (TeleHealth) Hematology [place] [address] Lamont Lewis V, [facility] [place] Hematology/[place] [address] Family history of melanoma; Renal [...] background is [place]. Paternal ethnic background is Omani. There is no known Ashkenazi Buddhism ancestry. Genetic risk assessment Based on personal [...] at [email or web address]. Cristofer opted for testing with [facility]'s Multi-Cancer Panel, a next generation sequencing panel that simultaneously analyzes 84 genes, including BRCA1 and BRCA2, that contribute to increased risk for cancer. Cristofer was verbally consented and will be sent consent forms to review, sign, and return. His blood sample will be drawn on 03/11/22 and sent to [facility]. We reviewed [facility]'s billing policy. Cristofer will be notified by text and/or email regarding his estimated out of pocket cost for testing once [facility] completes [facility] benefits [facility]. At that time, if Cristofer is concerned about the estimated test cost he will have the option to contact [employer] and either apply for [facility]'s patient assistance program to try and reduce cost of testingbased on income information, cancel testing, or switch to a self-pay option of $250. If Cristofer does not respond to [facility], testing will be billed to his insurance [...] [facility] Hematology Oncology [address] [place] [address] 03/29/2024 12:[address] [place] [address] Albino Bartholomew MD [facility] DR [place] [address] 04/05/2024 10:00 AM EST Office Visit Hematology [place] [address] Albino Bartholomew MD [facility] DR [place] [address] Scheduled Referrals Name Type Priority Associated Diagnoses [...] breast documented in this encounter Care Teams Liquid Sugar Melter Relationship Specialty Start Date End Date Juan Dempsey MD [address] [place] [address] PCP - General Emergency Medicine 08/20/21 documented as of this encounter
--- OUTSIDE RECORDS SUMMARY | 2024-03-09 16:56 | XMS_ITS | Encounter Summary ---
Author Organization [facility] Address [facility] [place] [address] Care Team Providers Care Housetrailer Servicer Name Role Phone Juan Dempsey MD Primary Care Provider [phone] Reason for Visit * Reason Comments Specialty Pharmacy Review Cabometyx 60mg tablet Encounter Details Date Type Department Care Team (Late st Contact Info) Description 04/15/2022 Specialty [place] [phone] Kelin Chong, [facility] Social History Tobacco Use Types Packs/Day [...] Chong - 04/15/2022 11:59 PM EST The [facility] has completed a benefits investigation for Cristofer Tenorio to review their eligibility to fill at [facility]. Per patient's medication list they are prescribedCabometyx 60mg tablet and the medication is able to be filled at the [facility]. The patient is currently filling the medication through Specialty Pharmacy with a $0 copay. PA approved until 2025 documented in this encounter Plan of Treatment Upcoming Encounters Date Type Department Care Team (Late st Contact Info) Description 03/29/2024 10:30 AM EST Laboratory Appointment [place] [facility] [place] [address] [place] [address] 03/29/2024 12:[address] [place] [address] Albino Bartholomew MD [facility] DR HEMATOLOGY [place] [address] 04/05/2024 10:00 AM EST Office Visit [place]ology [place] [address] Albino Bartholomew MD [facility] DR HEMATOLOGY [place] [address] documented as of this encounter Visit Diagnoses Not on filedocumented in this encounter Care Teams Housetrailer Servicer Relationship Specialty Start Date End Date Juan Dempsey MD [address] [place] [address] PCP - General Emergency Medicine 08/20/21 documented as of this encounter
--- OUTSIDE RECORDS SUMMARY | 2024-03-09 16:56 | XMS_ITS | Encounter Summary ---
Author Organization [facility] Address [facility] [place] [address] Care Team Providers Care Electronics Engineering Technologist Name Role Phone Juan Dempsey MD Primary Care Provider [phone] Reason for Visit * Reason Onset Date Comments Medication Refill 04/30/2022 Encounter Details Date Type Department Care Team (Late st Contact Info) Description 04/30/2022 Refill Hematology [place] [address] Rose Mary Abarca, [facility] Social History Tobacco Use Types Packs/Day [...] [facility] Hematology Oncology [address] [place] [address] 03/29/2024 12:[address] [place] [address] Albino Bartholomew MD [facility] HEMATOLOGY [place] [address] 04/05/2024 10:00 AM EST Office Visit [place]ematology [place] [address] Albino Bartholomew MD [facility] DR HEMATOLOGY [place] [address] documented as of this encounter Visit Diagnoses Not on filedocumented in this encounter Care Teams Electronics Engineering Technologist Relationship Specialty Start Date End Date Juan Dempsey MD [address] [place] [address] PCP - General Emergency Medicine 08/20/21 documented as of this encounter
--- OUTSIDE RECORDS SUMMARY | 2024-03-09 16:56 | XMS_ITS | Encounter Summary ---
Author Organization [facility] Address [facility] [place] [address] Care Team Providers Care Buffing Wheel Presser Name Role Phone Juan Dempsey MD Primary Care Provider [phone] Encounter Details Date Type Department Care Team (Late st Contact Info) Description 02/16/2022 Telephone Hematology [place] [address] Rose Mary Abarca PACKING CHECKER ROOM Social History Tobacco Use Types Packs/Day [...] 02/16/2022 12:58 PM EDT Message received from school secretary: [phone] Got a call from [employer] Wednesday night saying that the PA for his new meds was denied. He wasconfused because they said medicare, and he has BCBS Per demographics pt has a Managed Medicare BCBS Policy, per Specialty Pharmacy note insurance is [employer] [facility]. Spoke w/ pt, all his questions answered to his apparent satisfaction. He is aware clinic will likely appeal denial. documented in this encounter Plan of Treatment Upcoming Encounters Date Type Department Care Team (Late st Contact Info) Description 03/29/2024 10:30 AM EST Laboratory Appointment Lab at [facility] Hematology Oncology [address] [place] [address] 03/29/2024 12:[address] [place] [address] Albino Bartholomew MD [facility] HEMATOLOGY [place] [address] 04/05/2024 10:00 AM EST Office Visit Hematology [place] [address] Albino Bartholomew MD [facility] DR HEMATOLOGY [place] [address] documented as of this encounter Visit Diagnoses Not on filedocumented in this encounter Care Teams Buffing Wheel Presser Relationship Specialty Start Date End Date Juan Dempsey MD [address] [place] [address] PCP - General Emergency Medicine 08/20/21 documented as of this encounter
--- OUTSIDE RECORDS SUMMARY | 2024-03-09 16:56 | XMS_ITS | Encounter Summary ---
Author Organization [facility] Address [facility] [place] [address] Care Team Providers Care Php Architect Name Role Phone Juan Dempsey MD Primary Care Provider [phone] Encounter Details Date Type Department Care Team (Latest Contact Info) Description 04/15/2022 1:34 PM EST - 04/15/2022 11:59 PM EST Hospital Encounter Hematology [place] [phone] Renal cell carcinoma, unspecified laterality; Metastatic renal [...] [facility] [place] Oncology [address] [place] [address] 03/29/2024 12:[address] [place] [address] Albino Bartholomew MD [facility] DR [place] [address] 04/05/2024 10:00 AM EST Office Visit Hematology [place] [address] Albino Bartholomew MD [facility] DR [place] [address] Scheduled Orders Name Type Priority Associated Diagnoses [...] Bilirubin, Direct (04/15/2022 1:45 PM EST) Pathologist [facility] Bilirubin, Direct 0.1 0.0 - 0.3 mg/dL [facility] Blood 04/15/2022 1:45 PM EST 04/15/2022 1:49 PM EST Narrative Resulting Agency Comment Spec In Lab Ana Pringle MD CHEMISTRY ORDERABLES [facility] [place] [address] * Differential, Automated (04/15/2022 1:45 PM EST) Pathologist [facility] Neutrophil % 66.4 % [facility] Neutrophil Absolute 4.64 1.70 - 6.10 x10(3)/[facility] Lymph % 24.2 % [facility] Lymphocytes Abs 1.7 0.9 - 3.2 x10(3)/[facility] Monocyte % 4.0 % [facility] Monocyte Abs 0.3 0.3 - 0.9 x10(3)/[facility] Eos % 4.0 % [facility] Eosinophils Abs 0.3 0.0 - 0.4 x10(3)/[facility] Basophil % 1.3 % [facility] Baso Absolute 0.1 0.0 - 0.1 x10(3)/[facility]ORY Immature Gran % 0.10 % [facility] Comment: Immature granulocytes(IG's)percentage and absolute count will include metamyelocytes, myelocytes, and promyelocytes. Blood smears from CBCs yielding IG's will be scanned manually for concordance. If this scan disagrees with the automated IG or if promyelocytes are noted, a manual differential will be performed. Immature Gran Absolute 0.01 0.00 - 0.04 x10(3)/[facility] Blood 04/15/2022 1:45 PM EST 04/15/2022 1:48 PM EST Narrative Resulting Agency Comment Spec In Lab Albino Bartholomew MD HEMATOLOGY ORDERABLE S Performing Organization Address City/State/[facility] Co de Phone Number [facility] [place] [address] * (ABNORMAL) Hemogram (04/15/2022 1:45 PM EST) White Blood Cell 7.0 4.0 - 9.5 x10(3)/mc L [facility] Red Blood Cell 4.88 4.58 - 5.54 x10(6)/mc L [facility] Hemoglobin 14.3 13.7 - 16.5 g/dL [facility] Hematocrit 41.2 40.5 - 48.5 % [facility] Mean Cell Volume 84.4 82.9 - 93.1 fL [facility] Mean Cell Hemoglobin 29.3 27.5 - 32.1 pg [facility] Mean Cell Hemoglobin Concentration 34.7 32.0 - 35.7 g/dL [facility] Platelet 182 145 - 357 x10(3)/mc L [facility] RDW Standard Deviation 47.4(H) 36.0 - 45.0 fL [facility] RDW coefficient of variation 15.8(H) 11.4 - 13.8 % [facility] Mean Platelet Volume 9.1 7.6 - 12.9 fL [facility] NRBC% auto 0.0 % [facility] NRBC Absolute 0.000 0.000 - 0.000 x10(3)/ L [facility] Blood 04/15/2022 1:45 PM EST 04/15/2022 1:48 PM EST Narrative Resulting Agency Comment Spec In Lab Albino Bartholomew MD HEMATOLOGY ORDERABLE S Performing Organization Address [facility] de Phone Number [facility] [place] [address] * (ABNORMAL) TSH (04/15/2022 1:45 PM EST) Thyroid Stimulating Hormone 13.90(H) 0.27 - 4.20 mcIU/mL [facility] Comment: Reference Interval (mcIU/mL): Females: ??First Trimester: 0.23-3.88 ??Second Trimester: 0.22-3.90 ??Third Trimester: 0.44-4.66 Blood 04/15/2022 1:45 PM EST 04/15/2022 1:49 PM EST Narrative Resulting Agency Comment Spec In Lab Albino Bartholomew MD CHEMISTRY ORDERABLES Performing Organization Address [facility] Co de Phone Number [facility] [place] [address] * T4, free (04/15/2022 1:45 PM EST) Free T4 1.10 0.93 - 1.70 ng/dL [facility] Comment: Reference Interval (ng/dL): Females: ??First Trimester: 0.97-1.68 ??Second Trimester: 0.77-1.51 ??Third Trimester: 0.77-1.49 Blood 04/15/2022 1:45 PM EST 04/15/2022 1:49 PM EST Narrative Resulting Agency Comment Spec In Lab Albino Bartholomew MD CHEMISTRY ORDERABLES Performing Organization Address [facility] Co de Phone Number [facility] [place] [address] * (ABNORMAL) Comprehensive metabolic panel (non-fasting) (04/15/2022 1:45 PM EST) Glucose 122 65 - 199 mg/dL [facility] Comment:Diabetes: >=200 mg/d L plus symptoms Blood Urea Nitrogen 30(H) 10 - 20 mg/dL [facility] Creatinine 1.77(H) 0.80 - 1.50 mg/dL [facility] Sodium 138 135 - 145 mmol/L [facility] Potassium 3.8 3.5 - 5.0 mmol/L [facility] Comment: Please note: ??Patients with WBC >100,000 may have falsely elevated Potassium levels. ??For accurate Potassium quantification in these patients send serum separator tube (gold top) for subsequent determinations. ??Contact the Clinical Chemistry Laboratory if there are any questions. Chloride 103 98 - 107 mmol/L [facility] Carbon Dioxide 25 22 - 31 mmol/L [facility] Anion Gap 10 5 - 15 mmol/L [facility] Calcium 9.0 8.5 - 10.5 mg/dL [facility] Protein, Total 7.0 6.1 - 8.0 g/dL [facility] Albumin 3.7 3.2 - 5.2 g/dL [facility] Aspartate Aminotransferase 50(H) 0 - 39 unit/L [facility] Alanine Aminotransferase 92(H) 0 - 55 unit/L [facility] Alkaline Phosphatase 155(H) 40 - 130 unit/L [facility] Bilirubin, Total 0.5 0.2 - 1.3 mg/dL [facility] Est Glomerular Filtration Rate 42(L) >=60 mL/min/1. 73 m?? [facility] Comment: This patient's estimated GFR [...] In Lab Albino Bartholomew MD CHEMISTRY ORDERABLES [facility] [place] [address] documented in this encounter Visit Diagnoses Diagnosis Renal cell carcinoma, unspecified laterality Metastatic renal cell carcinoma to lung, unspecified laterality Abnormal thyroid function test Nonspecific abnormal results of thyroid function study Drug-induced liver injury Autoimmune hepatitis documented in this encounter Care Teams Php Architect Relationship Specialty Start Date End Date Juan Dempsey MD [address] [place] [address] PCP - General Emergency Medicine 08/20/21 documented as of this encounter
--- OUTSIDE RECORDS SUMMARY | 2024-03-09 16:56 | XMS_ITS | Encounter Summary ---
Author Organization [facility] Address [facility] [place] [address] Care Team Providers Care Organizational Development Director Name Role Phone Juan Dempsey MD Primary Care Provider [phone] Encounter Details Date Type Department Care Team (Late st Contact Info) Description 02/23/2022 Orders Only [place] [address] Lamont Lewis V [facility] [place], operated [facility] Hematology/[place] [address] Family history of melanoma; Renal cell carcinoma [...] [facility] Hematology Oncology [address] [place] [address] 03/29/2024 12:[address] [place] [place] [address] Albino Bartholomew MD [facility] [place] [address] 04/05/2024 10:00 AM EST Office Visit [place] [address] Albino Bartholomew MD [facility] DR [place] [address] documented as of this encounter Results * Research Venipuncture (03/18/2022 11:44 AM EST) [facility] Research Venipuncture Drawn [facility] Blood 03/18/2022 11:4 4 AM EST 03/18/2022 11:59 AM EST Narrative Resulting Agency Comment Spec In Lab Odell Ruiz MD CHEMISTRY ORDERABLES [facility] [place] [address] documented in this encounter Visit Diagnoses Diagnosis Family history of melanoma Family history of other specified malignant neoplasm Renal cell carcinoma of left kidney Family history of pancreatic cancer Family history of malignant neoplasm of gastrointestinal tract Family history of colon cancer Family history of malignant neoplasm of gastrointestinal tract Family history of malignant neoplasm of breast documented in this encounter Care Teams Organizational Development Director Relationship Specialty Start Date End Date Juan Dempsey MD [address] [place] [address] PCP - General Emergency Medicine 08/20/21 documented as of this encounter
--- OUTSIDE RECORDS SUMMARY | 2024-03-09 16:56 | XMS_ITS | Encounter Summary ---
Author Organization [facility] Address [facility] [place] [address] Care Team Providers Care Grinder Set Up Operator Gear Tool Name Role Phone Juan Dempsey MD Primary Care Provider [phone] Encounter Details Date Type Department Care Team (Late st Contact Info) Description 04/30/2022 External Results [place] [address] Ana Pringle MD [facility] [place] [address] Social History Tobacco Use Types Packs/Day Years [...] [facility] Hematology Oncology [address] [place] [address] 03/29/2024 12:[address] [place] [place] [address] Albino Bartholomew MD [facility] DR [place] [address] 04/05/2024 10:00 AM EST Office Visit [place]ematology [place] [address] Albino Bartholomew MD [facility] DR [place] [address] documented as of this encounter Procedures Procedure [...] on filedocumented in this encounter Care Teams Grinder Set Up Operator Gear Tool Relationship Specialty Start Date End Date Juan Dempsey MD [address] [place] [address] PCP - General Emergency Medicine 08/20/21 documented as of this encounter
--- OUTSIDE RECORDS SUMMARY | 2024-03-09 16:56 | XMS_ITS | Encounter Summary ---
Author Organization [facility] [place] [address] Care Team Providers Care Mechanical Engineering Professor Name Role Phone Juan Dempsey MD Primary Care Provider Encounter Details Date Type Department Care Team (Latest Contact Info) Description 03/18/2022 11:26 AM EST - 03/18/2022 11:59 PM [facility] Hospital Encounter [place]ology [place] [address] Metastatic renal cell carcinoma to lung, unspecified [...] [facility] On[facility] [address] [place] [address] 03/29/2024 12:[address] [place] [place] [address] Albino Bartholomew MD [facility] DR [place] [address] 04/05/2024 10:00 AM EST Office Visit [place] [address] Albino Bartholomew MD [facility] DR [place] [address] Scheduled Orders Name Type Priority Associated Diagnoses [...] Bilirubin, Direct (03/18/2022 11:44 AM EST) Pathologist [facility] Bilirubin, Direct 0.1 0.0 - 0.3 mg/dL [facility] Blood 03/18/2022 11:4 4 AM EST 03/18/2022 11:59 AM EST Narrative Resulting Agency Comment Spec In Lab Ana Pringle MD CHEMISTRY ORDERABLES [facility] [place] [address] * (ABNORMAL) Differential, Automated (03/18/2022 11:44 AM EST) Pathologist [facility] Neutrophil % 77.6 % [facility] Neutrophil Absolute 9.16(H) 1.70 - 6.10 x10(3)/mc L [facility] Lymph % 14.4 % [facility] Lymphocytes Abs 1.7 0.9 - 3.2 x10(3)/mc L [facility] Monocyte % 4.7 % [facility] Monocyte Abs 0.6 0.3 - 0.9 x10(3)/mc L [facility] Eos % 1.9 % [facility] Eosinophils Abs 0.2 0.0 - 0.4 x10(3)/[facility] Basophil % 1.1 % [facility] Baso Absolute 0.1 0.0 - 0.1 x10(3)/[facility] Immature Gran % 0.30 % [facility] Comment: Immature granulocytes(IG's)percentage and absolute count will include metamyelocytes, myelocytes, and promyelocytes. Blood smears from CBCs yielding IG's will be scanned manually for concordance. If this scan disagrees with the automated IG or if promyelocytes are noted, a manual differential will be performed. Immature Gran Absolute 0.03 0.00 - 0.04 x10(3)/[facility] Blood 03/18/2022 11:4 4 AM EST 03/18/2022 11:59 AM EST Narrative Resulting Agency Comment Spec In Lab Albino Bartholomew MD HEMATOLOGY ORDERABLE S [facility] [place] [address] * (ABNORMAL) Hemogram (03/18/2022 11:44 AM EST) White Blood Cell 11.8(H) 4.0 - 9.5 x10(3)/[facility] Red Blood Cell 5.26 4.58 - 5.54 x10(6)/[facility] Hemoglobin 15.1 13.7 - 16.5 g/dL [facility] Hematocrit 44.2 40.5 - 48.5 % [facility] Mean Cell Volume 84.0 82.9 - 93.1 fL [facility] Mean Cell Hemoglobin 28.7 27.5 - 32.1 pg [facility] Mean Cell Hemoglobin Concentration 34.2 32.0 - 35.7 g/dL [facility] Platelet 203 145 - 357 x10(3)/mc L [facility] RDW Standard Deviation 43.1 36.0 - 45.0 fL [facility] RDW coefficient of variation 14.3(H) 11.4 - 13.8 % [facility] Mean Platelet Volume 9.1 7.6 - 12.9 fL [facility] NRBC% auto 0.0 % [facility] NRBC Absolute 0.000 0.000 - 0.000 x10(3)/mc L [facility] Blood 03/18/2022 11:4 4 AM EST 03/18/2022 11:59 AM EST Narrative Resulting Agency Comment Spec In Lab Albino Bartholomew MD HEMATOLOGY ORDERABLE S Performing Organization Address [facility] Co de Phone Number [facility] [place] [address] * Research Venipuncture (03/18/2022 11:44 AM EST) Research Venipuncture Drawn [facility] Blood 03/18/2022 11:4 4 AM EST 03/18/2022 11:59 AM EST Narrative Resulting Agency Comment Spec In Lab Odell Ruiz MD CHEMISTRY ORDERABLES Performing Organization Address [facility] Co de Phone Number [facility] [place] [address] * (ABNORMAL) Comprehensive metabolic panel (non-fasting) (03/18/2022 11:44 AM EST) [facility] Signature Glucose 112 65 - 199 mg/dL [facility] Comment:Diabetes: >=200 mg/d L plus symptoms Blood Urea Nitrogen 19 10 - 20 mg/dL [facility] Creatinine 1.46 0.80 - 1.50 mg/dL [facility] Sodium 143 135 - 145 mmol/L [facility] Potassium 3.5 3.5 - 5.0 mmol/L [facility] Comment: Please note: ??Patients with WBC >100,000 may have falsely elevated Potassium levels. ??For accurate Potassium quantification in these patients send serum separator tube (gold top) for subsequent determinations. ??Contact the Clinical Chemistry Laboratory if there are any questions. Chloride 104 98 - 107 mmol/L [facility] Carbon Dioxide 32(H) 22 - 31 mmol/L [facility] Anion Gap 7 5 - 15 mmol/L [facility] Calcium 9.4 8.5 - 10.5 mg/dL [facility] Protein, Total 6.9 6.1 - 8.0 g/dL [facility] Albumin 4.0 3.2 - 5.2 g/dL [facility] Aspartate Aminotransferase 29 0 - 39 unit/L [facility] Alanine Aminotransferase 60(H) 0 - 55 unit/L [facility] Alkaline Phosphatase 130 40 - 130 unit/L [facility] Bilirubin, Total 0.3 0.2 - 1.3 mg/dL [facility] Est Glomerular Filtration Rate 52(L) >=60 mL/min/1. 73 m?? [facility] [...] In Lab Albino Bartholomew MD CHEMISTRY ORDERABLES [facility] [place] [address] * (ABNORMAL) TSH (03/18/2022 11:44 AM EST) Thyroid Stimulating Hormone 6.08(H) 0.27 - 4.20 mcIU/mL [facility] Comment: Reference Interval (mcIU/mL): Females: ??First Trimester: 0.23-3.88 ??Second Trimester: 0.22-3.90 ??Third Trimester: 0.44-4.66 Blood 03/18/2022 11:4 4 AM EST 03/18/2022 11:59 AM EST Narrative Resulting Agency Comment Spec In Lab Albino Bartholomew MD CHEMISTRY ORDERABLES Performing Organization Address [facility] Co de Phone Number [facility] [place] [address] * T4, free (03/18/2022 11:44 AM EST) Free T4 1.38 0.93 - 1.70 ng/dL [facility] Comment: Reference Interval (ng/dL): Females: ??First Trimester: 0.97-1.68 ??Second Trimester: 0.77-1.51 ??Third Trimester: 0.77-1.49 Blood 03/18/2022 11:4 4 AM EST 03/18/2022 11:59 AM EST Narrative Resulting Agency Comment Spec In Lab Albino Bartholomew MD CHEMISTRY ORDERABLES Performing Organization Address [facility] Co de Phone Number [facility] [place] [address] documented in this encounter Visit Diagnoses Diagnosis [...] breast documented in this encounter Care Teams Mechanical Engineering Professor Relationship Specialty Start Date End Date Dege, Juan E, MD [address] [place] [address] PCP - General Emergency Medicine 08/20/21 documented as of this encounter
--- OUTSIDE RECORDS SUMMARY | 2024-03-09 16:56 | XMS_ITS | Encounter Summary ---
Author Organization [facility] Address [facility] [place] [address] Care Team Providers Care Corrugated Sheet Material Sheeter Name Role Phone Juan Dempsey MD Primary Care Provider [phone] Reason for Visit * Reason Comments Follow-up Encounter Details Date Type Department Care Team (Late st Contact Info) Description 03/18/2022 1:00 PM EST Office Visit Hematology [place] [address] Albino Bartholomew MD [facility] DR HEMATOLOGY [place] [address] Zeke Brar MD [facility] HEMATOLOGY/[place] [address] Kyle Donohue PA [facility] DR HEMATOLOGY [place] [address] Metastatic renal cell carcinoma to lung, unspecified [...] in the abdomen and pelvis. 10/20/21 CXR ([facility]): 10/16/21: IMPRESSION 1. Unexpected finding: [...] taper. Pt prefers to get labs at [facility]. We'll send orders and I'll ask our firer tunnel kiln to f/u on results. Advised pt to [...] Emily agree with this plan. --------- 11/26/21: Cirstofer's recent MRI was KIMBER. We discussed the [...] and discussed with Dr. [place] Brar MD [facility] Hematology Oncology Fellow Page [phone] * Albino Bartholomew MD - 03/18/2022 1:00 [...] blood work Albino Bartholomew MD Hematology/Oncology Section, [facility] Aviation Maintenance Instructorsponge fisherman, [employer] [phone] documented in this encounter Plan of Treatment Upcoming Encounters Date Type Department Care Team (Late st Contact Info) Description 03/29/2024 10:30 AM EST Laboratory Appointment Lab at [facility] Hematology Oncology [address] [place] [address] 03/29/2024 12:[address] [place] [address] Albino Bartholomew MD [facility] DR HEMATOLOGY [place] [address] 04/05/2024 10:00 AM EST Office Visit Hematology [place] [address] Albino Bartholomew MD [facility] DR HEMATOLOGY [place] [address] documented as of this encounter Visit Diagnoses Diagnosis Metastatic renal cell carcinoma to lung, unspecified laterality documented in this encounter Care Teams Corrugated Sheet Material Sheeter Relationship Specialty Start Date End Date Juan Dempsey MD [address] [place] [address] PCP - General Emergency Medicine 08/20/21 documented as of this encounter
--- OUTSIDE RECORDS SUMMARY | 2024-03-09 16:56 | XMS_ITS | Encounter Summary ---
Author Organization [facility] Address [facility] [place] [address] Care Team Providers Care Medical Massage Therapist Name Role Phone Juan Dempsey MD Primary Care Provider [phone] Encounter Details Date Type Department Care Team (Late st Contact Info) Description 04/04/2022 Orders Only Hematology [place] [address] Albino Bartholomew MD [facility] [address] [place] [address] Social History Tobacco Use Types Packs/Day Years [...] [facility] Hematology Oncology [address] [place] [address] 03/29/2024 12:[address] [place] [address] Albino Bartholomew MD [facility] DR [place] [address] 04/05/2024 10:00 AM EST Office Visit Hematology [place] [address] Albino Bartholomew MD [facility] [address] [place] [address] documented as of this encounter Visit Diagnoses Not on filedocumented in this encounter Care Teams Medical Massage Therapist Relationship Specialty Start Date End Date Juan Dempsey MD [address] [place] [address] PCP - General Emergency Medicine 08/20/21 documented as of this encounter
--- OUTSIDE RECORDS SUMMARY | 2024-03-09 16:56 | XMS_ITS | Encounter Summary ---
Author Organization [facility] Address [facility] [place] [address] Care Team Providers Care Retail Marketing Manager Name Role Phone Juan Dempsey MD Primary Care Provider [phone] Encounter Details Date Type Department Care Team (Late st Contact Info) Description 2022 Telephone Hematology [place] [address] Bonita Gomez, RN Social History [...] [facility] Hematology Oncology [address] [place] [address] 03/29/2024 12:[address] [place] [address] Albino Bartholomew MD [facility] DR HEMATOLOGY [place] [address] 04/05/2024 10:00 AM EST Office Visit Hematology [place] [address] Albino Bartholomew MD [facility] DR HEMATOLOGY [place] [address] documented as of this encounter Visit Diagnoses Not on filedocumented in this encounter Care Teams Retail Marketing Manager Relationship Specialty Start Date End Date Juan Dempsey MD [address] [place] [address] PCP - General Emergency Medicine 08/20/21 documented as of this encounter
--- OUTSIDE RECORDS SUMMARY | 2024-03-09 16:56 | XMS_ITS | Encounter Summary ---
Author Organization [facility] Address [facility] [place] [address] Care Team Providers Care Library Page Name Role Phone Juan Dempsey MD Primary Care Provider [phone] Encounter Details Date Type Department Care Team [...] [facility] [place] On[facility] [address] [place] [address] 03/29/2024 12:[address] [place] [address] Albino Bartholomew MD [facility] [place] [address] 04/05/2024 10:00 AM EST Office Visit Hematology [place] [address] Albino Bartholomew MD [facility] [place] [address] documented as of this encounter Visit Diagnoses Not on filedocumented in this encounter Care Teams Library Page Relationship Specialty Start Date End Date Juan Dempsey MD [address] [place] [address] PCP - General Emergency Medicine 08/20/21 documented as of this encounter
--- OUTSIDE RECORDS SUMMARY | 2024-03-09 16:56 | XMS_ITS | Encounter Summary ---
Author Organization [facility] Address [facility] [place] [address] Care Team Providers Care 2Nd Grade Teacher Name Role Phone Juan Dempsey MD Primary Care Provider [phone] Encounter Details Date Type Department Care Team [...] [facility] Hematology Oncology [address] [place] [address] 03/29/2024 12:[address] [place] [address] Albino Bartholomew MD [facility] DR HEMATOLOGY [place] [address] 04/05/2024 10:00 AM EST Office Visit Hematology [place] [address] Albino Bartholomew MD [facility] DR HEMATOLOGY [place] [address] documented as of this encounter Visit Diagnoses Not on filedocumented in this encounter Care Teams 2Nd Grade Teacher Relationship Specialty Start Date End Date Juan Dempsey MD [address] [place] [address] PCP - General Emergency Medicine 08/20/21 documented as of this encounter
--- OUTSIDE RECORDS SUMMARY | 2024-03-09 16:56 | XMS_ITS | Encounter Summary ---
Author Organization Replaced By [facility] Address [facility] [place] [address] Care Team Providers Care Spinning Lathe Operator Name Role Phone Juan Dempsey MD Primary Care Provider [phone] Encounter Details Date Type Department Care Team [...] [facility] Hematology Oncology [address] [place] [address] 03/29/2024 12:[address] [place] [address] Albino Bartholomew MD [facility] DR [place] [address] 04/05/2024 10:00 AM EST Office Visit Hematology [place] [address] Albino Bartholomew MD [facility] [address] [place] [address] documented as of this encounter Visit Diagnoses Not on filedocumented in this encounter Care Teams Spinning Lathe Operator Relationship Specialty Start Date End Date Juan Dempsey MD [address] [place] [address] PCP - General Emergency Medicine 08/20/21 documented as of this encounter
--- OUTSIDE RECORDS SUMMARY | 2024-03-09 16:56 | XMS_ITS | Encounter Summary ---
Author Organization [facility] Address [facility] [place] [address] Care Team Providers Care Boat Rigger Name Role Phone Juan Dempsey MD Primary Care Provider [phone] Encounter Details Date Type Department Care Team (Late st Contact Info) Description 03/18/2022 Orders [place] [address] Ana Pringle MD [facility] [place] [address] Drug-induced liver injury Social History Tobacco Use [...] [facility] H[facility] Oncology [address] [place] [address] 03/29/2024 12:[address] [place] [place] [address] Albino Bartholomew MD [facility] DR [place] [address] 04/05/2024 10:00 AM EST Office Visit [place]ematology [place] [address] Albino Bartholomew MD [facility] DR [place] [address] documented as of this encounter Visit Diagnoses Diagnosis Drug-induced liver injury documented in this encounter Care Teams Boat Rigger Relationship Specialty Start Date End Date Juan Dempsey MD [address] [place] [address] PCP - General Emergency Medicine 08/20/21 documented as of this encounter
--- OUTSIDE RECORDS SUMMARY | 2024-03-09 16:56 | XMS_ITS | Encounter Summary ---
Author Organization [facility] [place] [address] Care Team Providers Care Hairspring Studder Name Role Phone Juan Dempsey MD Primary Care Provider [phone] Reason for Visit * Reason Comments Prior Authorization [employer] Encounter Details Date Type Department Care Team (Late st Contact Info) Description 02/13/2022 Specialty [place] [phone] Larry Mckeon, OPHTHALMIC ASSISTANT Social History Tobacco Use Types Packs/Day [...] Cristofer Tenorio Patient : 1955 Patient Address: [address] [place] [address] (home) Medication Name: CABOMETYX 60 MG TABLET Medication ID: [id number] Subscriber Insurance: [employer] Subscriber Insurance Comment: Phone: [phone] Fax: Physician: ALBINO COSTELLO Physician Comment: Sent Via: [facility] Vega: [id number] Ref/Case/PA#: Medication Strength Frequency Requested: Take one tablet by mouth daily Qty/Day Supply: New Start: New to Therapy Diagnosis & ICD-10 Code: renal cell carcinoma Patient Notified: No Submission Notes: None Larry Mckeon 02/13/22 2:59 PM * Larry Mckeon - 02/13/2022 2:53 PM EDT [facility], Prior Authorization Approval Medication Name: CABOMETYX 60 MG TABLET Medication ID: [id number] Approval Dates: 05/03/2021 to 2025 Insurance requirements/notes: None Other Notes: None Case/Reference #: [id number] Approval notification Received via: [facility] Copay: $0 Copay assistance: None Copay Notes: Insurance mandated Pharmacy: Fillable at [facility]: Yes Pharmacy staff will be [...] [facility] Hemat[facility] Oncology [address] [place] [address] 03/29/2024 12:[address] [place] [address] Albino Costello MD [facility] HEMATOLOGY [place] [address] 04/05/2024 10:00 AM EST Office Visit Hematology [place] [address] Albino Costello MD [facility] HEMATOLOGY [place] [address] documented as of this encounter Visit Diagnoses Not on filedocumented in this encounter Care Teams Hairspring Studder Relationship Specialty Start Date End Date Juan Dempsey MD [address] [place] [address] PCP - General Emergency Medicine 08/20/21 documented as of this encounter
--- OUTSIDE RECORDS SUMMARY | 2024-03-09 16:56 | XMS_ITS | Encounter Summary ---
Author Organization [facility] Address [facility] [place] [address] Care Team Providers Care Tooth Cutter Contact Wheel Name Role Phone Juan Dempsey MD Primary Care Provider [phone] Encounter Details Date Type Department Care Team (Late st Contact Info) Description 04/23/2022 Abstract [place] [address] Ana Pringle MD [facility] [place] [address] Social History Tobacco Use Types Packs/Day Years [...] [facility] Hemat[facility] Oncology [address] [place] [address] 03/29/2024 12:[address] [place] [address] Albino Bartholomew MD [facility] DR HEMATOLOGY [place] [address] 04/05/2024 10:00 AM EST Office Visit Hematology [place] [address] Albino Bartholomew MD [facility] DR HEMATOLOGY [place] [address] documented as of this encounter Visit Diagnoses Not on filedocumented in this encounter Care Teams Tooth Cutter Contact Wheel Relationship Specialty Start Date End Date Juan Dempsey MD [address] [place] [address] PCP - General Emergency Medicine 08/20/21 documented as of this encounter
--- OUTSIDE RECORDS SUMMARY | 2024-03-09 16:56 | XMS_ITS | Encounter Summary ---
Author Organization [facility] Address [facility] [place] [address] Care Team Providers Care General Handling Supervisor Name Role Phone Juan Dempsey MD Primary Care Provider [phone] Encounter Details Date Type Department Care Team (Late st Contact Info) Description 04/30/2022 [place] [address] Ana Pringle MD [facility] [place] [address] Social History Tobacco Use Types Packs/Day Years [...] [facility] Oncology [address] [place] [address] 03/29/2024 12:[address] [place] [place] [address] Albino Bartholomew MD [facility] DR [place] [address] 04/05/2024 10:00 AM EST Office Visit Hematology [place] [address] Albino Bartholomew MD [facility] DR [place] [address] documented as of this encounter Visit Diagnoses Not on filedocumented in this encounter Care Teams General Handling Supervisor Relationship Specialty Start Date End Date Juan Dempsey MD [address] [place] [address] PCP - General Emergency Medicine 08/20/21 documented as of this encounter
--- OUTSIDE RECORDS SUMMARY | 2024-03-09 16:56 | XMS_ITS | Encounter Summary ---
Author Organization [facility] Address [facility] [place] [address] Care Team Providers Care Leaf Coverer Name Role Phone Juan Dempsey MD Primary Care Provider [phone] Encounter Details Date Type Department Care Team (Late st Contact Info) Description 02/14/2022 Telephone Hematology [place] [address] Odell Ruiz MD [facility] DR HEMATOLOGY/[place] [address] Social History Tobacco Use Types Packs/Day Years [...] scheduled for next week. Odell Ruiz MD excelsior machine operator in Hematology-Oncology documented in this encounter Plan of Treatment Upcoming Encounters Date Type Department Care Team (Late st Contact Info) Description 03/29/2024 10:30 AM EST Laboratory Appointment Lab at [facility] Hematology Oncology [address] [place] [address] 03/29/2024 12:[address] [place] [place] [address] Albino Bartholomew MD [facility] [place] [address] 04/05/2024 10:00 AM EST Office Visit [place]ematology [place] [phone] Albino Bartholomew MD [facility] [address] [place] [address] documented as of this encounter Visit Diagnoses Not on filedocumented in this encounter Care Teams Leaf Coverer Relationship Specialty Start Date End Date Juan Dempsey MD [address] [place] [address] PCP - General Emergency Medicine 08/20/21 documented as of this encounter
--- OUTSIDE RECORDS SUMMARY | 2024-03-09 16:56 | XMS_ITS | Encounter Summary ---
Author Organization [facility] Address [facility] [place] [address] Care Team Providers Care Athletic Instructor Name Role Phone Juan Dempsey MD Primary Care Provider Encounter Details Date Type Department Care Team (Late st Contact Info) Description 03/04/2022 Telephone [place]ematology [place] [address] Daxa Arriola RN Social History [...] 1:35 PM EDT Message received from clinical rolling mill operator helper: [phone] Cristofer tested positive for covid today. Wants to know if he should do anything different with his cabometyx Forwarded [facility] advice request to Dr. Bartholomew. Discussed with Dr. Bartholomew at weekly team meeting. Dr. Bartholomew would like pt to discontinue useof Cabometyx and start antivirals recommended by PCP. [facility] message sent to pt explaining above plan. documented in this encounter Plan of Treatment Upcoming Encounters Date Type Department Care Team (Late st Contact Info) Description 03/29/2024 10:30 AM EST Laboratory Appointment Lab at [facility] Hematology Oncology [address] [place] [address] 03/29/2024 12:[address] [place] [place] [address] Albino Bartholomew MD [facility] DR HEMATOLOGY [place] [address] 04/05/2024 10:00 AM EST Office Visit [place]ematology [place] [address] Albino Bartholomew MD [facility] DR HEMATOLOGY [place] [address] documented as of this encounter Visit Diagnoses Not on filedocumented in this encounter Care Teams Athletic Instructor Relationship Specialty Start Date End Date Juan Dempsey MD [address] [place] [address] PCP - General Emergency Medicine 08/20/21 documented as of this encounter
--- OUTSIDE RECORDS SUMMARY | 2024-03-09 16:56 | XMS_ITS | Encounter Summary ---
Author Organization [facility] Address [facility] [place] [address] Care Team Providers Care Filling Room Operator Name Role Phone Juan Dempsey MD Primary Care Provider [phone] Reason for Visit * Reason Comments Specialty Pharmacy Review Cabometyx 60mg tablet Encounter Details Date Type Department Care Team (Late st Contact Info) Description 02/20/2022 Specialty [place] [phone] Kelin Chong, [facility] Social History Tobacco Use Types Packs/Day [...] Chong - 02/20/2022 11:59 PM EDT The [facility] has completed a benefits investigation for Cristofer Tenorio to review their eligibility to fill at [facility]. Per patient's medication list they are prescribedCabometyx 60mg tablet and the medication is able to be filled at the [facility]. The patient is currently filling the medication through Specialty Pharmacy with a $0 copay. PA approved until 2025 documented in this encounter Plan of Treatment Upcoming Encounters Date Type Department Care Team (Late st Contact Info) Description 03/29/2024 10:30 AM EST Laboratory Appointment Lab at [facility] [place] Oncology [address] [place] [address] 03/29/2024 12:[address] [place] [place] [address] Albino Bartholomew MD [facility] DR [place] [address] 04/05/2024 10:00 AM EST Office Visit Hematology [place] [address] Albino Bartholomew MD [facility] DR [place] [address] documented as of this encounter Visit Diagnoses Not on filedocumented in this encounter Care Teams Filling Room Operator Relationship Specialty Start Date End Date Juan Dempsey MD [address] [place] [address] PCP - General Emergency Medicine 08/20/21 documented as of this encounter
--- OUTSIDE RECORDS SUMMARY | 2024-03-09 16:56 | XMS_ITS | Encounter Summary ---
Author Organization [facility] Address [facility] [place] [address] Care Team Providers Care Iron Bender Name Role Phone Juan Dempsey MD Primary Care Provider Reason for Visit * Reason Comments Specialty Refill Management Encounter Details Date Type Department Care Team (Late st Contact Info) Description 04/30/2022 Specialty [place] [phone] Reshma Gar, [facility] Social History Tobacco Use Types Packs/Day [...] this encounter Progress Notes * Reshma Gar [facility] - 04/30/2022 10:26 AM EST Clinical Management Plan: Refill Specialty Pharmacy Consultation; Reshma Gar [facility] Comprehensive Medication Management (CMM) Cristofer Tenorio is [...] [facility] Hematology Oncology [address] [place] [address] 03/29/2024 12:[address] [place] [address] Albino Bartholomew MD [facility] [place] [address] 04/05/2024 10:00 AM EST Office Visit Hematology [place] [address] Albino Bartholomew MD [facility] [place] [address] documented as of this encounter Visit Diagnoses Not on filedocumented in this encounter Care Teams Iron Bender Relationship Specialty Start Date End Date Juan Dempsey MD [address] [place] [address] PCP - General Emergency Medicine 08/20/21 documented as of this encounter
--- OUTSIDE RECORDS SUMMARY | 2024-03-09 16:56 | XMS_ITS | Encounter Summary ---
Author Organization [facility] Address [facility] [place] [address] Care Team Providers Care Data Miner Name Role Phone Juan Dempsey MD Primary Care Provider [phone] Encounter Details Date Type Department Care Team [...] [facility] Hemat[facility] Oncology [address] [place] [address] 03/29/2024 12:[address] [place] [address] Albino Bartholomew MD [facility] DR HEMATOLOGY [place] [address] 04/05/2024 10:00 AM EST Office Visit Hematology [place] [address] Albino Bartholomew MD [facility] DR HEMATOLOGY [place] [address] documented as of this encounter Visit Diagnoses Not on filedocumented in this encounter Care Teams Data Miner Relationship Specialty Start Date End Date Juan Dempsey MD [address] [place] [address] PCP - General Emergency Medicine 08/20/21 documented as of this encounter
--- OUTSIDE RECORDS SUMMARY | 2024-03-09 16:56 | XMS_ITS | Encounter Summary ---
Author Organization [facility] Address [facility] [place] [address] Care Team Providers Care Trailer Tank Truck Driver Name Role Phone Juan Dempsey MD Primary Care Provider [phone] Reason for Visit * Reason Comments Specialty Pharmacy Review Specialty Refill Management Encounter Details Date Type Department Care Team (Late st Contact Info) Description 03/19/2022 Specialty [place] [phone] Reshma Gar, [facility] Social History Tobacco Use [...] this encounter Progress Notes * Reshma Gar, [facility] - 03/19/2022 8:30 AM EST Comprehensive Medication [...] after food Medication Reconciliation Discrepancies (compared to [facility] med list) yes - Cristofer reported he [...] History Administered Date(s) Administered ??? Moderna Covid-19 (Field Crop Grower 100mcg) Vaccine 07/03/2020, 07/31/2020, 02/24/2021 ??? Zoster, Recombinant 03/16/2019 Assessment and Recommendations: Patient Counseling Patient informed of specialty services: Yes Patient accepted offer to rehabilitation counsellor: select all, adherence/missed doses, cost of medications/cost [...] care discussed, reminder to refill or supervisor picking crew medication discussed, self-monitoring discussed, start medication discussed, [...] Social Assessment: Does patient have a primary eye care professional: No Does patient have an emergency contact on file: Yes Does patient need referral to oncology social work: No Does patient need referral to advocacy [...] appointment and that [facility] isproviding recommendations (summary located at top of note) for provider review and follow up. Reshma Gar RPH 03/19/22 9:18 AM documented in this encounter Plan of Treatment Upcoming Encounters Date Type Department Care Team (Late st Contact Info) Description 03/29/2024 10:30 AM EST Laboratory Appointment Lab at [facility] Hematology Oncology [address] [place] [address] 03/29/2024 12:[address] [place] [address] Albino Bartholomew MD [facility] DR HEMATOLOGY [place] [address] 04/05/2024 10:00 AM EST Office Visit Hematology [place] [address] Albino Bartholomew MD [facility] DR HEMATOLOGY [place] [address] documented as of this encounter Visit Diagnoses Not on filedocumented in this encounter Care Teams Trailer Tank Truck Driver Relationship Specialty Start Date End Date Juan Dempsey MD [address] [place] [address] PCP - General Emergency Medicine 08/20/21 documented as of this encounter
--- OUTSIDE RECORDS SUMMARY | 2024-03-09 16:56 | XMS_ITS | Encounter Summary ---
Author Organization [facility] Address [facility] [place] [address] Care Team Providers Care Retail Merchandiser Name Role Phone Juan Dempsey MD Primary Care Provider [phone] Reason for Visit * Reason Comments Follow-up Encounter Details Date Type Department Care Team (Late st Contact Info) Description 02/13/2022 1:00 PM EDT Office Visit [place] [phone] Albino Costello MD [facility] [address] [place] [address] Edith Joaquin APRN [facility] [place] [address] Metastatic renal cell carcinoma to lung, unspecified [...] daughter; one step daughter as well 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 10/20/21 CXR ([facility]): 10/16/21: IMPRESSION 1. Unexpected [...] taper. Pt prefers to get labs at [facility]. We'll send orders and I'll ask our commercial finance analyst to f/u on results. Advised pt [...] [facility] Hematology Oncology [address] [place] [address] 03/29/2024 12:[address] [place] [place] [phone] Albino Costello MD [facility] [place] [address] 04/05/2024 10:00 AM EST Office Visit [place] [address] Albino Costello MD [facility] [place] [address] Scheduled Orders Name Type Priority Associated Diagnoses [...] Free T4 1.34 0.93 - 1.70 ng/dL [facility] Comment: Reference Interval (ng/dL): Females: ??First Trimester: 0.97-1.68 ??Second Trimester: 0.77-1.51 ??Third Trimester: 0.77-1.49 Blood 06/26/2022 11:1 2 AM EST 06/26/2022 11:19 AM EST Narrative Resulting Agency Comment Spec In Lab Albino Costello MD CHEMISTRY ORDERABLES Performing Organization Address City/[facility] [[email or web address]] Co de Phone Number [facility] [place] [address] * (ABNORMAL) TSH (06/26/2022 11:12 AM EST) Pathologist [facility] Thyroid Stimulating Hormone 10.60(H) 0.27 - 4.20 mcIU/mL [facility] Comment: Reference Interval (mcIU/mL): Females: ??First Trimester: 0.23-3.88 ??Second Trimester: 0.22-3.90 ??Third Trimester: 0.44-4.66 Blood 06/26/2022 11:1 2 AM EST 06/26/2022 11:19 AM EST Narrative Resulting Agency Comment Spec In Lab Albino Costello MD CHEMISTRY ORDERABLES Performing Organization Address City/[facility]/ZIP Co de Phone Number [facility] [place] [address] * (ABNORMAL) Comprehensive metabolic panel (non-fasting) (06/26/2022 11:12 AM EST) Glucose 117 65 - 199 mg/dL [facility] Comment:Diabetes: >=200 mg/d L plus symptoms Blood Urea Nitrogen 28(H) 10 - 20 mg/dL [facility] Creatinine 1.80(H) 0.80 - 1.50 mg/dL [facility] Sodium 138 135 - 145 mmol/L [facility] Potassium 3.9 3.5 - 5.0 mmol/L [facility] Comment: Please note: ??Patients with WBC >100,000 may have falsely elevated Potassium levels. ??For accurate Potassium quantification in these patients send serum separator tube (gold top) for subsequent determinations. ??Contact the Clinical Chemistry Laboratory if there are any questions. Chloride 102 98 - 107 mmol/L [facility] Carbon Dioxide 27 22 - 31 mmol/L [facility] Anion Gap 9 5 - 15 mmol/L [facility] Calcium 9.1 8.5 - 10.5 mg/dL [facility] Protein, Total 6.6 6.1 - 8.0 g/dL [facility] Albumin 4.2 3.2 - 5.2 g/dL [facility] Aspartate Aminotransferase 42(H) 0 - 39 unit/L [facility] Alanine Aminotransferase 86(H) 0 - 55 unit/L [facility] Alkaline Phosphatase 121 40 - 130 unit/L [facility] Bilirubin, Total 0.6 0.2 - 1.3 mg/dL [facility] Est Glomerular Filtration Rate 41(L) >=60 mL/min/1. 73 m?? [facility] Comment: This patient's estimated GFR was [...] Costello MD CHEMISTRY ORDERABLES Performing Organization Address [facility] [[email or web address]] Co de Phone Number [facility] [place] [address] * T4, free (05/20/2022 7:56 AM EST) Free T4 1.38 0.93 - 1.70 ng/dL [facility] Comment: Reference Interval (ng/dL): Females: ??First Trimester: 0.97-1.68 ??Second Trimester: 0.77-1.51 ??Third Trimester: 0.77-1.49 Blood 05/20/2022 7:56 AM EST 05/20/2022 8:02 AM EST Narrative Resulting Agency Comment Spec In Lab Albino Costello MD CHEMISTRY ORDERABLES Performing Organization Address [facility] [[email or web address]] Co de Phone Number [facility] [place] [address] * (ABNORMAL) TSH (05/20/2022 7:56 AM EST) Thyroid Stimulating Hormone 14.70(H) 0.27 - 4.20 mcIU/mL [facility] Comment: Reference Interval (mcIU/mL): Females: ??First Trimester: 0.23-3.88 ??Second Trimester: 0.22-3.90 ??Third Trimester: 0.44-4.66 Blood 05/20/2022 7:56 AM EST 05/20/2022 8:02 AM EST Narrative Resulting Agency Comment Spec In Lab Albino Costello MD CHEMISTRY ORDERABLES Performing Organization Address City/[facility] [[email or web address]] Co de Phone Number [facility] [place] [address] * (ABNORMAL) Comprehensive metabolic panel (non-fasting) (05/20/2022 7:56 AM EST) Glucose 103 65 - 199 mg/dL [facility] Comment:Diabetes: >=200 mg/d L plus symptoms Blood Urea Nitrogen 31(H) 10 - 20 mg/dL [facility] Creatinine 1.71(H) 0.80 - 1.50 mg/dL [facility] Sodium 141 135 - 145 mmol/L [facility] Potassium 3.4(L) 3.5 - 5.0 mmol/L [facility] Comment: Please note: ??Patients with WBC >100,000 may have falsely elevated Potassium levels. ??For accurate Potassium quantification in these patients send serum separator tube (gold top) for subsequent determinations. ??Contact the Clinical Chemistry Laboratory if there are any questions. Chloride 104 98 - 107 mmol/L [facility] Carbon Dioxide 26 22 - 31 mmol/L [facility] Anion Gap 11 5 - 15 mmol/L [facility] Calcium 9.4 8.5 - 10.5 mg/dL [facility] Protein, Total 6.5 6.1 - 8.0 g/dL [facility] Albumin 4.0 3.2 - 5.2 g/dL [facility] Aspartate Aminotransferase 62(H) 0 - 39 unit/L [facility] Alanine Aminotransferase 160(H) 0 - 55 unit/L [facility] Alkaline Phosphatase 122 40 - 130 unit/L [facility] Bilirubin, Total 0.5 0.2 - 1.3 mg/dL [facility] Est Glomerular Filtration Rate 43(L) >=60 mL/min/1. 73 m?? [facility] Comment: This patient's estimated GFR was [...] Costello MD CHEMISTRY ORDERABLES Performing Organization Address City/[facility] [[email or web address]] Co de Phone Number [facility] [place] [address] * T4, free (04/15/2022 1:45 PM EST) Free T4 1.10 0.93 - 1.70 ng/dL [facility] Comment: Reference Interval (ng/dL): Females: ??First Trimester: 0.97-1.68 ??Second Trimester: 0.77-1.51 ??Third Trimester: 0.77-1.49 Blood 04/15/2022 1:45 PM EST 04/15/2022 1:49 PM EST Narrative Resulting Agency Comment Spec In Lab Albino Costello MD CHEMISTRY ORDERABLES Performing Organization Address [facility] [[email or web address]] Co de Phone Number [facility] [place] [address] * (ABNORMAL) TSH (04/15/2022 1:45 PM EST) Thyroid Stimulating Hormone 13.90(H) 0.27 - 4.20 mcIU/mL [facility] Comment: Reference Interval (mcIU/mL): Females: ??First Trimester: 0.23-3.88 ??Second Trimester: 0.22-3.90 ??Third Trimester: 0.44-4.66 Blood 04/15/2022 1:45 PM EST 04/15/2022 1:49 PM EST Narrative Resulting Agency Comment Spec In Lab Albino Costello MD CHEMISTRY ORDERABLES Performing Organization Address City/[facility] [[email or web address]] Co de Phone Number [facility] [place] [address] * T4, free (03/18/2022 11:44 AM EST) Free T4 1.38 0.93 - 1.70 ng/dL [facility] Comment: Reference Interval (ng/dL): Females: ??First Trimester: 0.97-1.68 ??Second Trimester: 0.77-1.51 ??Third Trimester: 0.77-1.49 Blood 03/18/2022 11:4 4 AM EST 03/18/2022 11:59 AM EST Narrative Resulting Agency Comment Spec In Lab Albino Costello MD CHEMISTRY ORDERABLES Performing Organization Address [facility] [[email or web address]] Co de Phone Number [facility] [place] [address] * (ABNORMAL) TSH (03/18/2022 11:44 AM EST) Thyroid Stimulating Hormone 6.08(H) 0.27 - 4.20 mcIU/mL [facility] Comment: Reference Interval (mcIU/mL): Females: ??First Trimester: 0.23-3.88 ??Second Trimester: 0.22-3.90 ??Third Trimester: 0.44-4.66 Blood 03/18/2022 11:4 4 AM EST 03/18/2022 11:59 AM EST Narrative Resulting Agency Comment Spec In Lab Albino Costello MD CHEMISTRY ORDERABLES Performing Organization Address [facility] de Phone Number [facility] [place] [address] * (ABNORMAL) Comprehensive metabolic panel (non-fasting) (03/18/2022 11:44 AM EST) Glucose 112 65 - 199 mg/dL [facility] Comment:Diabetes: >=200 mg/d L plus symptoms Blood Urea Nitrogen 19 10 - 20 mg/dL [facility] Creatinine 1.46 0.80 - 1.50 mg/dL [facility] Sodium 143 135 - 145 mmol/L [facility] Potassium 3.5 3.5 - 5.0 mmol/L [facility] Comment: Please note: ??Patients with WBC >100,000 may have falsely elevated Potassium levels. ??For accurate Potassium quantification in these patients send serum separator tube (gold top) for subsequent determinations. ??Contact the Clinical Chemistry Laboratory if there are any questions. Chloride 104 98 - 107 mmol/L [facility] Carbon Dioxide 32(H) 22 - 31 mmol/L [facility] Anion Gap 7 5 - 15 mmol/L [facility] Calcium 9.4 8.5 - 10.5 mg/dL [facility] Protein, Total 6.9 6.1 - 8.0 g/dL [facility] Albumin 4.0 3.2 - 5.2 g/dL [facility] Aspartate Aminotransferase 29 0 - 39 unit/L [facility] Alanine Aminotransferase 60(H) 0 - 55 unit/L [facility] Alkaline Phosphatase 130 40 - 130 unit/L [facility] Bilirubin, Total 0.3 0.2 - 1.3 mg/dL [facility] Est Glomerular Filtration Rate 52(L) >=60 mL/min/1. 73 m?? [facility] Comment: This patient's estimated [...] In Lab Albino Costello MD CHEMISTRY ORDERABLES [facility] [place] [address] documented in this encounter Visit Diagnoses Diagnosis Metastatic renal cell carcinoma to lung, unspecified laterality- Primary Renal cell carcinoma, unspecified laterality Multiple lung nodules on CT Abnormal thyroid function test Nonspecific abnormal results of thyroid function study documented in this encounter Care Teams Retail Merchandiser Relationship Specialty Start Date End Date Juan Dempsey MD [address] [place] [address] PCP - General Emergency Medicine 08/20/21 documented as of this encounter
--- OUTSIDE RECORDS SUMMARY | 2024-03-09 16:56 | XMS_ITS | Encounter Summary ---
Author Organization [facility] Address [facility] [place] [address] Care Team Providers Care Termite Inspector Name Role Phone Juan Dempsey MD Primary Care Provider [phone] Encounter Details Date Type Department Care Team (Late st Contact Info) Description 04/23/2022 Telephone Hematology [place] [address] Daxa Arriola RN Social History [...] 11:43 AM EST Message received from clinical funeral home assistant: [phone] Reports that he has some new thrush medication, wants to make sure it is ok to take with his other meds Message sent to pt via [employer]; Per Albino Bartholomew MD. Clotrimazole lozenges are okay. Hold Cabometyx for a few days if diarrhea is getting worse. Messages exchanged via scroll kit. documented in this encounter Plan of Treatment Upcoming Encounters Date Type Department Care Team (Late st Contact Info) Description 03/29/2024 10:30 AM EST Laboratory Appointment Lab at [facility] Hematology Oncology [address] [place] [address] 03/29/2024 12:[address] [place] [address] Albino Bartholomew MD [facility] [place] [address] 04/05/2024 10:00 AM EST Office Visit Hematology [place] [address] Albino Bartholomew MD [facility] [address] [place] [address] documented as of this encounter Visit Diagnoses Not on filedocumented in this encounter Care Teams Termite Inspector Relationship Specialty Start Date End Date Juan Dempsey MD [address] [place] [address] PCP - General Emergency Medicine 08/20/21 documented as of this encounter
--- OUTSIDE RECORDS SUMMARY | 2024-03-09 16:56 | XMS_ITS | Encounter Summary ---
Author Organization [facility] [place] [address] Care Team Providers Care Stone Polisher Name Role Phone Juan Dempsey MD Primary Care Provider [phone] Reason for Referral * Diagnostic Test (Routine) - Closed Specialty Diagnoses / Procedures Referred By Contac t Referred To Contact Radiology Diagnoses Renal cell carcinoma, unspecified laterality Procedures MRI Abdomen wwo Contrast (Generic) Albino Bartholomew MD [facility] [address] HEMATOLOGY [place] [address] [place] [address] Referral ID Status Reason Start Date Expiration Date V isits Requested Visits Authorized [id number] Closed Specialty Service Requested 01/16/2022 07/17/2023 1 1 Reason for Visit * Diagnostic Test (Routine) - Closed Specialty Diagnoses / Procedures Referred By Contac t Referred To Contact Radiology Diagnoses Renal cell carcinoma, unspecified laterality Procedures MRI Abdomen wwo Contrast (Generic) Albino Bartholomew MD [facility] HEMATOLOGY [place] [address] [place] [address] Referral ID Status Reason Start Date Expiration Date V isits Requested Visits Authorized [id number] Closed Specialty Service Requested 01/16/2022 07/17/2023 1 1 Encounter Details Date Type Department Care Team (Latest Contact Info) Description 02/06/2022 5:26 PM EDT - 02/06/2022 11:59 PM EDT Hospital Encounter MRI at [facility] [place] [address] Albino Bartholomew MD [facility] HEMATOLOGY [place] [address] Renal cell carcinoma, unspecified laterality [...] [facility] H[facility] Oncology [address] [place] [address] 03/29/2024 12:[address] [place] [address] Albino Bartholomew MD [facility] [address] HEMATOLOGY [place] [address] 04/05/2024 10:00 AM EST Office Visit Hematology [place] [address] Albino Bartholomew MD [facility] [address] HEMATOLOGY [place] [address] documented as of this encounter Procedures Procedure [...] please contact the health long term care social worker that requested your imaging first. ? Electronically signed by: German Morel MD, [facility] ([phone]), at 02/09/2022 8:55 AM Narrative 02/09/2022 8:55 [...] questions please contactthe health long term care social worker that requested your imaging first. Albino Bartholomew MD IMG MRI ORDERABLES documented in this encounter Visit Diagnoses Diagnosis Renal cell carcinoma, unspecified laterality documented in this encounter Care Teams Stone Polisher Relationship Specialty Start Date End Date Juan Dempsey MD [address] [place] [address] PCP - General Emergency Medicine 08/20/21 documented as of this encounter
--- OUTSIDE RECORDS SUMMARY | 2024-03-09 16:56 | XMS_ITS | Encounter Summary ---
Author Organization [facility] Address [facility] [place] [address] Care Team Providers Care Poultry Picking Machine Tender Name Role Phone Juan Dempsey MD Primary Care Provider [phone] Reason for Visit * Reason Comments Follow-up Encounter Details Date Type Department Care Team (Late st Contact Info) Description 04/15/2022 3:00 PM EST Office Visit Hematology [place] [address] Albino Bartholomew MD [facility] [address] [place] [address] Kyle Donohue PA [facility] [address] [place] [address] Metastatic renal cell carcinoma to lung, unspecified [...] daughter; one step daughter as well 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 Advised pt [...] [facility] Hematology Oncology [address] [place] [address] 03/29/2024 12:[address] [place] [address] Albino Bartholomew MD [facility] [address] [place] [address] 04/05/2024 10:00 AM EST Office Visit Hematology [place] [address] Albino Bartholomew MD [facility] [address] [place] [address] documented as of this encounter Visit Diagnoses Diagnosis Metastatic renal cell carcinoma to lung, unspecified laterality Abnormal thyroid function test Nonspecific abnormal results of thyroid function study Drug-induced liver injury High risk medication use Encounter for long-term (current) use of other medications documented in this encounter Care Teams Poultry Picking Machine Tender Relationship Specialty Start Date End Date Juan Dempsey MD [address] [place] [address] PCP - General Emergency Medicine 08/20/21 documented as of this encounter
--- OUTSIDE RECORDS SUMMARY | 2024-03-09 16:56 | XMS_ITS | Encounter Summary ---
Author Organization [facility] Address [facility] [place] [address] Care Team Providers Care Flight Simulator Teacher Name Role Phone Juan Dempsey MD Primary Care Provider [phone] Encounter Details Date Type Department Care Team (Late st Contact Info) Description 02/25/2022 Telephone [place] [address] Daxa Arriola RN Social History [...] [facility] On[facility] [address] [place] [address] 03/29/2024 12:[address] [place] [place] [address] Albino Bartholomew MD [facility] [address] [place] [address] 04/05/2024 10:00 AM EST Office Visit [place] [address] Albino Bartholomew MD [facility] [address] [place] [address] documented as of this encounter Visit Diagnoses Not on filedocumented in this encounter Care Teams Flight Simulator Teacher Relationship Specialty Start Date End Date Juan Dempsey MD [address] [place] [address] PCP - General Emergency Medicine 08/20/21 documented as of this encounter
--- OUTSIDE RECORDS SUMMARY | 2024-03-09 16:56 | XMS_ITS | Encounter Summary ---
Author Organization [facility] Address [facility] [place] [address] Care Team Providers Care Director Life Sciences Name Role Phone Juan Dempsey MD Primary Care Provider [phone] Reason for Visit * Reason Onset Date Comments Results 04/01/2022 Encounter Details Date Type Department Care Team (Late st Contact Info) Description 04/01/2022 Telephone Hematology [place] [address] Lamont Lewis V, [facility] [place], operated by [facility] Hematology/[place] [address] Results Social History Tobacco Use Types Packs/Day [...] * Telephone Encounter - Lamont Lewis V [facility] - 04/01/2022 11:28 AM EST This test result was discussed with the patient by phone. A copy of the test results have been scanned in the medical record and sent to Cristofer. A summary of the results is provided below. Please be advised that [place] law requires that all health care workers respect the confidentiality of this information and not pass it along to other health care providers, insurance companies, or individuals without the written permission of the patient. The Familial Cancer Program welcomes any questions about these matters. Our phone number is: [phone]. On 02/20/2022 Cristofer was seen for genetic [...] CDH1, CDK4, CDKN1B, CDKN1C, CDKN2A (p14ARF), CDKN2A ([id number]), CEBPA,CHEK2, CTNNA1, DICER1, DIS3L2, EGFR, EPCAM (Deletion/duplication testing only), FH, FLCN, GATA2, GPC3, GREM1 (Promoter region deletion/duplication testing only), HOXB13, HRAS, KIT, MAX, MEN1, MET, MITF, (c.952G>A,P.Sch825Qtt variant only), MLH1, MSH2, MSH3, MSH6, MUTYH, NBN, NF1, NF2, NTHL1, PALB2, PDGFRA, PHOX2B, PMS2, POLD1, POLE, POT1, YXCHM4F, PTCH1, PTEN, RAD50, RAD51C, RAD51D, RB1, RECQL4, RET, RUNX1, SDHA, SDHAF2, SDHB, SDHC, SDHD, SMAD4, SMARCA4, SMARCB1, SMARCE1, STK11, SUFU, TERC, TERT, NZDB951, TP53, TSC1, TSC2, VHL, WRN, and WT1. A variant of uncertain significance (VUS) was detected in the FLCN gene, specifically c.802C>T (p.Bnp312Mmq). Interpretation: This test did not identify an underlying genetic cause for the personal history of kidney cancer orfamily history of breast, pancreatic, skin, colon, and other cancers. Possible explanations for this negative test result include: ?? Lukes cancer and the cancer in his family may be due to non genetic, environmental causes. ?? There could be a mutation in Cristofer's family that Cristfoer did not inherit. ?? Individuals with a [...] the gene with no increased cancer risks. [employer] is continually collecting and analyzing their data, in an effort to reclassify these variants as either cancer-causing mutationsor benign changes. It is important to remember that a vast majority of variants of uncertain significance are normal, benign changes in the gene. Per ClinVar, this FLCN variant is also classified as a VUS by [employer] and [employer]. We will be contacted by the laboratory, in the future, if a reclassification is made and we would then notify Cristofer. It is important that Cristofer's phone number and mailing address stay updated in the [facility] system, in order for us to reach [...] Periodic colonoscopy screening as recommended by Cristofer's senior project coordinator, taking family history of colon cancer into account. Skin cancer screening ?? Skin cancer screening and sun protection are important for everyone, regardless of genetic predisposition. ?? Consideration of routine dermatologic/skin exams, as recommended by Cristofer's primary care provider or corporate development associate. documented in this encounter Plan of Treatment Upcoming Encounters Date Type Department Care Team (Late st Contact Info) Description 03/29/2024 10:30 AM EST Laboratory Appointment Lab at [facility] [place] On[place] [address] [place] [address] 03/29/2024 12:[address] [place] [address] Albino Bartholomew MD [facility] DR HEMATOLOGY [place] [address] 04/05/2024 10:00 AM EST Office Visit Hematology [place] [address] Albino Bartholomew MD [facility] DR HEMATOLOGY [place] [address] documented as of this encounter Visit Diagnoses Not on filedocumented in this encounter Care Teams Director Life Sciences Relationship Specialty Start Date End Date Juan Dempsey MD [address] [place] [address] PCP - General Emergency Medicine 08/20/21 documented as of this encounter
--- OUTSIDE RECORDS SUMMARY | 2024-03-09 16:56 | XMS_ITS | Encounter Summary ---
Author Organization [facility] Address [facility] [place] [address] Care Team Providers Care Metal Bumper Name Role Phone Juan Dempsey MD Primary Care Provider [phone] Encounter Details Date Type Department Care Team (Late st Contact Info) Description 04/21/2022 Orders [place] [address] Ana Pringle MD [facility] [place] [address] Drug-induced liver injury Social History Tobacco Use [...] at [facility] [place] [address] [place] [address] 03/29/2024 12:[address] [place] [place] [address] Albino Bartholomew MD [facility] DR HEMATOLOGY [place] [address] 04/05/2024 10:00 AM EST Office Visit Hematology [place] [address] Albino Bartholomew MD [facility] DR HEMATOLOGY [place] [address] documented as of this encounter Visit Diagnoses Diagnosis Drug-induced liver injury documented in this encounter Care Teams Metal Bumper Relationship Specialty Start Date End Date Juan Dempsey MD [address] [place] [address] PCP - General Emergency Medicine 08/20/21 documented as of this encounter
--- OUTSIDE RECORDS SUMMARY | 2024-03-09 16:57 | XMS_ITS | Encounter Summary ---
Author Organization [facility] [place] [address] Care Team Providers Care Limousine Driver Name Role Phone Juan Dempsey MD Primary Care Provider [phone] Reason for Visit * Reason Onset Date Comments Reminder Appointment 10/31/2021 Encounter Details Date Type Department Care Team (Late st Contact Info) Description 10/31/2021 Telephone [place] [address] Patricia Michaels, [facility] Reminder Appointment Social History Tobacco Use [...] [facility] [place] [place] [address] [place] [address] 03/29/2024 12:[address] [place] [address] Albino Bartholomew MD [facility] [place] [address] 04/05/2024 10:00 AM EST Office Visit Hematology [place] [address] Albino Bartholomew MD [facility] [place] [address] documented as of this encounter Visit Diagnoses Not on filedocumented in this encounter Care Teams Limousine Driver Relationship Specialty Start Date End Date Juan Dempsey MD [address] [place] [address] PCP - General Emergency Medicine 08/20/21 documented as of this encounter
--- OUTSIDE RECORDS SUMMARY | 2024-03-09 16:57 | XMS_ITS | Encounter Summary ---
Author Organization [facility] Address [facility] [address] Care Team Providers Care Egg Sorter Name Role Phone Juan Dempsey MD Primary Care Provider [phone] Encounter Details Date Type Department Care Team (Late st Contact Info) Description 01/09/2022 Orders [place] [address] Ana Pringle MD [facility] [place] [address] Autoimmune hepatitis Social History Tobacco Use Types [...] AM EST Laboratory Appointment Lab at [facility] [place] Hematology Oncology [address] [place] [address] 03/29/2024 12:[address] [place] [address] Albino Bartholomew MD [facility] DR HEMATOLOGY [place] [address] 04/05/2024 10:00 AM EST Office Visit Hematology [place] [address] Albino Bartholomew MD [facility] DR HEMATOLOGY [place] [address] Scheduled Orders Name Type Priority Associated Diagnoses Orde r Schedule Hepatic Function Panel Lab Routine Autoimmune hepatitis As Needed for 12 Occurrences starting 01/10/2022 until 04/29/2024 documented as of this encounter Visit Diagnoses Diagnosis Autoimmune hepatitis documented in this encounter Care Teams Egg Sorter Relationship Specialty Start Date End Date Juan Dempsey MD [address] [place] [address] PCP - General Emergency Medicine 08/20/21 documented as of this encounter
--- OUTSIDE RECORDS SUMMARY | 2024-03-09 16:57 | XMS_ITS | Encounter Summary ---
Author Organization [facility] [place] [address] Care Team Providers Care Dominatrix Name Role Phone Juan Dempsey MD Primary Care Provider Reason for Referral * Diagnostic Test (Routine) - Closed Specialty Diagnoses / Procedures Referred By Contac t Referred To Contact Radiology Diagnoses History of renal cell carcinoma Incidental lung nodule, > 3mm and < 8mm Procedures CT Chest wo Contrast (Generic) Kelin Carlos APRN [address] [place] [address] DR HEMATOLOGY [place] [address] [facility] [place] [address] Referral ID Status Reason Start Date Expiration Date V isits Requested Visits Authorized [id number] Closed Specialty Service Requested 11/28/2021 05/31/2023 1 1 Reason for Visit * Diagnostic Test (Routine) - Closed Specialty Diagnoses / Procedures Referred By Contac t Referred To Contact Radiology Diagnoses History of renal cell carcinoma Incidental lung nodule, > 3mm and < 8mm Procedures CT Chest wo Contrast (Generic) Kelin Carlos APRN [address] [place] [address] DR HEMATOLOGY [place] [address] [facility] [place] [address] Referral ID Status Reason Start Date Expiration Date V isits Requested Visits Authorized [id number] Closed Specialty Service Requested 11/28/2021 05/31/2023 1 1 Encounter Details Date Type Department Care Team (Latest Contact Info) Description 01/15/2022 9:54 AM EDT - 01/15/2022 11:59 PM EDT Hospital Encounter CT Scan at [facility] [place] [address] Kelin Carlos, CENTRAL OFFICE ASSOCIATE [address] [place] [address] DR HEMATOLOGY AND ONCOLOGY [place] [id number] History of renal cell carcinoma; Incidental lung [...] [facility] [place] [address] [place] [address] 03/29/2024 12:[address] [place] [address] Albino Bartholomew MD [facility] HEMATOLOGY [place] [address] 04/05/2024 10:00 AM EST Office Visit Hematology [place] [address] Albino Bartholomew MD [facility] HEMATOLOGY [place] [address] documented as of this encounter Procedures Procedure [...] questions please contact the health animal care taker that requested your imaging first. ? Narrative [...] lobe subpleural nodules (series 4 image 107 [id number]). Stable tiny right apical nodule. Airways: Central [...] patients who have questions please contactthe health animal care taker that requested your imaging first. Kelin Carlos CENTRAL OFFICE ASSOCIATE IMG CT ORDERABLES documented in this encounter Visit Diagnoses Diagnosis History of renal cell carcinoma Incidental lung nodule, > 3mm and < 8mm Solitary pulmonary nodule documented in this encounter Care Teams Dominatrix Relationship Specialty Start Date End Date Juan Dempsey MD [address] [place] [address] PCP - General Emergency Medicine 08/20/21 documented as of this encounter
--- OUTSIDE RECORDS SUMMARY | 2024-03-09 16:57 | XMS_ITS | Encounter Summary ---
Author Organization [facility] Address [facility] [place] [address] Care Team Providers Care Service Desk Agent Name Role Phone Juan Dempsey MD Primary Care Provider [phone] Encounter Details Date Type Department Care Team (Late st Contact Info) Description 01/19/2022 Notes [place] [address] John Paul Brenner MD [facility] [place] [address] Social History Tobacco Use Types Packs/Day Years [...] DIAGNOSTIC performed by Jordyn Merino MD at [facility] ENDOSCOPY ??? PRO CYSTOURETHROSCOPY N/A 06/23/2021 CYSTO, CYSTOURETHROSCOPY, DIAGNOSTIC (VU 2.23) performed by Jordan Hou MD at [facility] MAIN OR ??? PRO REMV KIDNEY, RADICAL Left 06/23/2021 @NEPHRECTOMY, RADICAL W\REG LYMPHADENECTOMY &\OR VENA CAVA THROMBECTOMY [facility] performed by Jordan Hou MD at [facility] MAIN OR Medications: Medication Sig ? [facility] [place] [place] [address] [place] [address] 03/29/2024 12:[address] [place] [place] [address] Albino Bartholomew MD [facility] [place] [address] 04/05/2024 10:00 AM EST Office Visit [place]ematology [place] [address] Albino Bartholomew MD [facility] [place] [address] documented as of this encounter Visit Diagnoses Not on filedocumented in this encounter Care Teams Service Desk Agent Relationship Specialty Start Date End Date Juan Dempsey MD [address] [place] [address] PCP - General Emergency Medicine 08/20/21 documented as of this encounter
--- OUTSIDE RECORDS SUMMARY | 2024-03-09 16:57 | XMS_ITS | Encounter Summary ---
[place] [address] Care Team Providers Care Coding And Reimbursement Specialist Name Role Phone Juan Dempsey MD Primary Care Provider [phone] Reason for Referral * Consultation (Routine) - Closed Specialty Diagnoses / Procedures Referred By Burak mcnair Referred To Contact Hematology and Oncology Diagnoses Family history of melanoma History of renal carcinoma Oli Winter MD [address] [facility] [place] [address] [facility] [address] [place] [address] Referral ID Status Reason Start Date Expiration Date V isits Requested Visits Authorized [id number] Closed Consult, Test & Treat 10/28/2021 10/28/2022 1 1 Reason for Visit * Reason Comments Skin Check Encounter Details Date Type Department Care Team (Late st Contact Info) Description 10/28/2021 8:45 AM EDT Office Visit Dermatology at [facility] [address] [place] [address] Oli Winter MD [address] [place] [place] [address] Rodríguez angioma; SK (seborrheic keratosis); Multiple benign [...] Oli Winter MD FAAD at Dermatology at [facility] Patient's preferred name Cristofer Preferred contact [...] laser therapy. Cosmetic treatment and therefore, likely fac-gh-ftxhkd expense. Handout given. Answered all questions. Patient [...] unless symptoms develop. Treatment considered cosmetic and wgk-ba-kvopoe. Treatment options, including but not limited to [...] dermatitis. [] Recall placed [x] Forwarded to director of casino marketing [] Patient scheduled before exiting Scribe attestation: NAVEEN ANGELO LPN has performed the documentation for this encounter in the presence of and acting as a scribe for MD LEONEL Leal. I performed the above scribed service and agree with the accuracy of the documentation in this encounter. Reviewed and signed by: MD LEONEL Leal Dermatology [facility] documented in this encounter Plan of Treatment Upcoming Encounters Date Type Department Care Team (Late st Contact Info) Description 03/29/2024 10:30 AM EST Laboratory Appointment Lab at [facility] [place] Oncology [address] [place] [address] 03/29/2024 12:[address] [place] [place] [address] Albino Bartholomew MD [facility] DR HEMATOLOGY [place] [address] 04/05/2024 10:00 AM EST Office Visit [place]ology [place] [address] Albino Bartholomew MD [facility] DR HEMATOLOGY [place] [address] Scheduled Referrals Name Type Priority Associated Diagnoses [...] neoplasm documented in this encounter Care Teams Coding And Reimbursement Specialist Relationship Specialty Start Date End Date Juan Dempsey MD [address] [place] [address] PCP - General Emergency Medicine 08/20/21 documented as of this encounter
--- OUTSIDE RECORDS SUMMARY | 2024-03-09 16:57 | XMS_ITS | Encounter Summary ---
Author Organization [facility] Address [facility] [place] [address] Care Team Providers Care Aircraft Systems Repairer Name Role Phone Juan Dempsey MD Primary Care Provider [phone] Reason for Referral * Diagnostic Test (Routine) - Closed Specialty Diagnoses / Procedures Referred By Contac t Referred To Contact Radiology Diagnoses Renal cell carcinoma, unspecified laterality Procedures MRI Brain wwo Contrast (Generic) Albino Costello MD [facility] DR HEMATOLOGY [place] [address] [place] [address] Referral ID Status Reason Start Date Expiration Date V isits Requested Visits Authorized [id number] Closed Specialty Service Requested 01/16/2022 07/17/2023 1 1 * Diagnostic Test (Routine) - Closed Specialty Diagnoses / Procedures Referred By Contac t Referred To Contact Radiology Diagnoses Renal cell carcinoma, unspecified laterality Procedures MRI Abdomen wwo Contrast (Generic) Albino Costello MD [facility] HEMATOLOGY [place] [address] [place] [address] Referral ID Status Reason Start Date Expiration Date V isits Requested Visits Authorized [id number] Closed Specialty Service Requested 01/16/2022 07/17/2023 1 1 * Diagnostic Test (Routine) - Closed Specialty Diagnoses / Procedures Referred By Contac t Referred To Contact Radiology Diagnoses Renal cell carcinoma, unspecified laterality Multiple lung nodules on CT Procedures CT Guided Biopsy Lung Albino Costello MD [facility] DR HEMATOLOGY [place] [address] [facility] [place] [address] Referral ID Status Reason Start Date Expiration Date V isits Requested Visits Authorized [id number] Closed Specialty Service Requested 01/16/2022 07/17/2023 1 1 Encounter Details Date Type Department Care Team (Latest Contact Info) Description 01/16/2022 3:30 PM EDT TH Visit (TeleHealth) Hematology [place] [address] Albino Costello MD [facility] DR HEMATOLOGY [place] [address] Renal cell carcinoma, unspecified laterality (Primary Dx); [...] daughter; one step daughter as well 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 Advised pt to [...] plan. --------- 11/26/21: Cristofer's recent MRI was [facility]IB[facility]. We discussed the fact that his chest [...] [place] [facility] [place] [address] [place] [address] 03/29/2024 12:[address] [place] [address] Albino Costello MD [facility] DR HEMATOLOGY [place] [address] 04/05/2024 10:00 AM EST Office Visit Hematology [place] [address] Albino Costello MD [facility] DR HEMATOLOGY [place] [address] documented as of this encounter Results * [...] services that requested your imaging first. ? Narrative [...] fluid collection. Marrow Signal: Normal. Procedure Note Germna Morel MD - 02/09/2022 EXAMINATION: MRI ABDOMEN [...] career services that requested your imaging first. Albino Costello MD [facility] MRI ORDERABLES * MRI Brain wwo Contrast [...] services that requested your imaging first. ? Narrative [...] career services that requested your imaging first. Albino Costello MD IMG MRI ORDERABLES * CT Guided Biopsy Lung (02/04/2022 10:51 AM EDT) Anatomical Region Laterality Modality Lung Computed Tomogra phy Impressions 02/04/2022 10:54 AM EDT Impression: Technically successful CT-guided core needle biopsy of the left lung. Dictaphone Typist(s): Attending: Rich Baldwin MD Procedure/Teaching Attestation: ??I [...] services that requested your imaging first. ? Narrative [...] CT-guided core needle biopsy of theleft lung. Dictaphone Typist(s): Attending: Rich Baldwin MD Procedure/Teaching Attestation: I [...] first. Electronically signed by: Rich Baldwin MD, [facility][phone]), at 02/04/2022 10:54 AM Albino Costello MD IMG CT ORDERABLES documented in this encounter Visit Diagnoses Diagnosis Renal cell carcinoma, unspecified laterality- Primary Multiple lung nodules on CT Drug-induced hepatitis Hepatitis, unspecified Pre-op testing Preoperative examination, unspecified Renal cell carcinoma, unspecified laterality Multiple lung nodules on CT Renal cell carcinoma, unspecified laterality Renal cell carcinoma, unspecified laterality documented in this encounter Care Teams Aircraft Systems Repairer Relationship Specialty Start Date End Date Juan Dempsey MD [address] [place] [address] PCP - General Emergency Medicine 08/20/21 documented as of this encounter
--- OUTSIDE RECORDS SUMMARY | 2024-03-09 16:57 | XMS_ITS | Encounter Summary ---
Author Organization [facility] [place] [address] Care Team Providers Care Stock Wetter Name Role Phone Juan Dempsey MD Primary Care Provider [phone] Reason for Referral * Diagnostic Test (Routine) - Closed Specialty Diagnoses / Procedures Referred By Contac t Referred To Contact Radiology Diagnoses Renal cell carcinoma, unspecified laterality Procedures MRI Brain wwo Contrast (Generic) Albino Bartholomew MD [facility] [address] HEMATOLOGY [place] [address] [place] [address] Referral ID Status Reason Start Date Expiration Date V isits Requested Visits Authorized [id number] Closed Specialty Service Requested 01/16/2022 07/17/2023 1 1 Reason for Visit * Diagnostic Test (Routine) - Closed Specialty Diagnoses / Procedures Referred By Contac t Referred To Contact Radiology Diagnoses Renal cell carcinoma, unspecified laterality Procedures MRI Brain wwo Contrast (Generic) Albino Bartholomew MD [facility] HEMATOLOGY [place] [address] [place] [address] Referral ID Status Reason Start Date Expiration Date V isits Requested Visits Authorized [id number] Closed Specialty Service Requested 01/16/2022 07/17/2023 1 1 Encounter Details Date Type Department Care Team (Latest Contact Info) Description 02/05/2022 5:35 PM EDT - 02/05/2022 11:59 PM EDT Hospital Encounter [facility] [place] [address] Albino Bartholomew MD [facility] HEMATOLOGY [place] [address] Renal cell carcinoma, unspecified laterality [...] [facility] Hemat[facility] Oncology [address] [place] [address] 03/29/2024 12:[address] [place] [address] Albino Bartholomew MD [facility] [address] HEMATOLOGY [place] [address] 04/05/2024 10:00 AM EST Office Visit Hematology [place] [address] Albino Bartholomew MD [facility] [address] HEMATOLOGY [place] [address] documented as of this encounter Procedures Procedure [...] have questions please contact the health rn acute care that requested your imaging first. ? [...] who have questions please contactthe health rn acute care that requested your imaging first. Albino Bartholomew MD [facility] MRI ORDERABLES documented in [...] mLs documented in this encounter Care Teams Stock Wetter Relationship Specialty Start Date End Date Dege, Juan E, MD [address] [place] [address] PCP - General Emergency Medicine 08/20/21 documented as of this encounter
--- OUTSIDE RECORDS SUMMARY | 2024-03-09 16:57 | XMS_ITS | Encounter Summary ---
Author Organization [facility] Address [facility] [place] [address] Care Team Providers Care Data Processing Clerk Name Role Phone Juan Dempsey MD Primary Care Provider [phone] Encounter Details Date Type Department Care Team (Latest Contact Info) Description 01/12/2022 10:00 AM EDT TH Visit (TeleHealth) [place] [address] Ana Pringle MD [facility] [place] [address] Autoimmune hepatitis; Drug-induced liver injury Social History [...] (Left); Achilles tendon surgery; Remv Kidney, Radical (55819) (Left, 06/23/2021); Cystourethroscopy (34826) (N/A, 06/23/2021); and Colonoscopy, Diagnostic (12724) (N/A, 10/02/2021). Family History: family history includes [...] with patient on above. Was located in [place] at the time ofthis encounter. Approximae time in review of records and documentation 5 minutes. Approximate totaltime devoted to this single encounter on the day of the encounter: 25 minutes Ana Pringle MD [facility] [place] [id number] documented in this encounter Plan of Treatment Upcoming Encounters Date Type Department Care Team (Late st Contact Info) Description 03/29/2024 10:30 AM EST Laboratory Appointment Lab at [facility] Hematology Oncology [address] [place] [address] 03/29/2024 12:[address] [place] [address] Albino Bartholomew MD [facility] [place]AT[place] [address] 04/05/2024 10:00 AM EST Office Visit Hematology [place] [address] Albino Bartholomew MD [facility] DR [place] [address] documented as of this encounter Visit Diagnoses Diagnosis Autoimmune hepatitis Drug-induced liver injury documented in this encounter Care Teams Data Processing Clerk Relationship Specialty Start Date End Date Juan Dempsey MD [address] [place] [address] PCP - General Emergency Medicine 08/20/21 documented as of this encounter
--- OUTSIDE RECORDS SUMMARY | 2024-03-09 16:57 | XMS_ITS | Encounter Summary ---
Author Organization [facility] Address [facility] [place] [address] Care Team Providers Care Occupational Health Nurse Name Role Phone Juan Dempsey MD Primary Care Provider [phone] Encounter Details Date Type Department Care Team (Late st Contact Info) Description 01/08/2022 External Results [place] [address] Ana Pringle MD [facility] [place] [address] Social History Tobacco Use Types Packs/Day Years [...] [facility] [place] [place] Hematology Oncology [address] [place] [address] 03/29/2024 12:[address] [place] [address] Albino Bartholomew MD [facility] DR [place] [address] 04/05/2024 10:00 AM EST Office Visit Hematology [place] [address] Albino Bartholomew MD [facility] DR [place] [address] documented as of this encounter Procedures Procedure [...] on filedocumented in this encounter Care Teams Occupational Health Nurse Relationship Specialty Start Date End Date Juan Dempsey MD [address] [place] [address] PCP - General Emergency Medicine 08/20/21 documented as of this encounter
--- OUTSIDE RECORDS SUMMARY | 2024-03-09 16:57 | XMS_ITS | Encounter Summary ---
Author Organization [facility] Address [facility] [place] [address] Care Team Providers Care Patron Attendant Name Role Phone Juan Dempsey MD Primary Care Provider [phone] Encounter Details Date Type Department Care Team (Late st Contact Info) Description 11/04/2021 External Results Hematology [place] [phone] Gilson Tobar RN Social History Tobacco Use [...] [facility] Hematology Oncology [address] [place] [address] 03/29/2024 12:[address] [place] [address] Albino Bartholomew MD [facility] DR [place] [address] 04/05/2024 10:00 AM EST Office Visit Hematology [place] [address] Albino Bartholomew MD [facility] DR [place] [address] documented as of this encounter Procedures Procedure Name Priority Date/Time Associated Diagnosis Comments EXTERNAL LAB CBC CMP THYROID RESULTS PANEL Routine 11/04/2021 documented in this encounter Results * (ABNORMAL) CBC / CMP / Thyroid External Results (11/04/2021) Sodium 141 MANOJ RN [facility] Potassium 3.7 MANOJ RN [facility] Chloride 105 MANOJ RN [facility] Carbon Dioxide 29 [facility] Blood Urea Nitrogen 28(H) [facility] Creatinine 1.4(H) [facility] Est Glomerular Filtration Rate 50.70 [facility] Glucose 156(H) [facility] Calcium 8.7 [facility] Protein, Total 6.3(L) [facility] Albumin 3.0 [facility] RN [facility] Bilirubin, Total 0.6 [facility] Alkaline Phosphatase 90 [facility] Aspartate Aminotransferase 27 [facility] Alanine Aminotransferase 80(H) [facility] 11/04/2021 Historical Provider EXTERNAL LAB SUNITHA SERRANO Performing Organization Address City/State/[facility] Co de Phone Number [address] [place], [place] [id number] [place] [address] documented in this encounter Visit Diagnoses Not on filedocumented in this encounter Care Teams Patron Attendant Relationship Specialty Start Date End Date Juan Dempsey MD [address] [place] [address] PCP - General Emergency Medicine 08/20/21 documented as of this encounter
--- OUTSIDE RECORDS SUMMARY | 2024-03-09 16:57 | XMS_ITS | Encounter Summary ---
Author Organization [facility] [place] [address] Care Team Providers Care Criminal Researcher Name Role Phone Juan Dempsey MD Primary Care Provider [phone] Reason for Referral * Diagnostic Test (Routine) - Closed Specialty Diagnoses / Procedures Referred By Contac t Referred To Contact Radiology Diagnoses Renal cell carcinoma, unspecified laterality Multiple lung nodules on CT Procedures CT Guided Biopsy Lung Albino Bartholomew MD [facility] DR HEMATOLOGY [place] [address] [facility] [place] [address] Referral ID Status Reason Start Date Expiration Date V isits Requested Visits Authorized [id number] Closed Specialty Service Requested 01/16/2022 07/17/2023 1 1 Reason for Visit * Diagnostic Test (Routine) - Closed Specialty Diagnoses / Procedures Referred By Contac t Referred To Contact Radiology Diagnoses Renal cell carcinoma, unspecified laterality Multiple lung nodules on CT Procedures CT Guided Biopsy Lung Albino Bartholomew MD [facility] [place] [address] [place] [address] Referral ID Status Reason Start Date Expiration Date V isits Requested Visits Authorized [id number] Closed Specialty Service Requested 01/16/2022 07/17/2023 1 1 Encounter Details Date Type Department Care Team (Latest Contact Info) Description 02/04/2022 8:47 AM EDT - 02/04/2022 10:59 AM EDT Hospital Encounter CT Scan at [facility] [place] [address] Albino Bartholomew MD [facility] DR H[place]OLOG[place] [address] Pre-op testing; Renal cell carcinoma, [...] Elizalde RN - 02/04/2022 11:19 AM EDT [facility] Vascular and Interventional Radiology Biopsy [...] be reported to you by your primary clinical manager home care or the clinician who ordered the biopsy. Please do not call us for results as we will not have them. If you have not been contacted by your clinician within 5 business days you should call that officefor further information. When to call the Interventional Radiology Department: Please call with any questions or concerns. If it is during regular office hours, please call [phone]. If it is after regular office hours, or on weekends or holidays, please call [phone] and ask to speak to the Rouge Sifter coal conveyor operator for Interventional Radiology. You have received [...] of : 1955 AGE: 66 y.o. Address: [address] [place] [phone] (home) Mobile: Telephone Information: Referring Provider: Albino Bartholomew REASON FOR VISIT: Order Questions Answers Where will study be performed? [facility] Radiology [120] Laterality Left Is the [...] DIAGNOSTIC performed by Jordyn Merino MD at [facility] ENDOSCOPY ??? PRO CYSTOURETHROSCOPY N/A 06/23/2021 CYSTO, CYSTOURETHROSCOPY, DIAGNOSTIC (WRVU 2.23) performed by Jordan Hou MD at [facility] MAIN OR ??? PRO REMV KIDNEY, RADICAL Left 06/23/2021 @NEPHRECTOMY, RADICAL W\REG LYMPHADENECTOMY &\OR VENA CAVA THROMBECTOMY (WRVU 23.81) performed by Jordan Hou MD at [facility] MAIN OR Medications: Medication Sig ? [...] [facility] [place] [facility] H[facility] Oncology [address] [place] [address] 03/29/2024 12:[address] [place] [place] [address] Albino Bartholomew MD [facility] DR [place] [address] 04/05/2024 10:00 AM EST Office Visit [place]ematology [place] [address] Albino Bartholomew MD [facility] DR [place] [address] documented as of this encounter Procedures Procedure [...] have questions please contact the health director career that requested your imaging first. ? Narrative [...] who have questions please contactthe health director career that requested your imaging first. Electronically signed by: Ragini Molina MD, [facility] ([phone]), at 02/04/2022 3:02 PM Rich Baldwin MD [...] have questions please contact the health director career that requested your imaging first. ? Narrative [...] who have questions please contactthe health director career that requested your imaging first. Rich Baldwin MD IMG DX ORDERABLES * CT Guided Biopsy Lung (02/04/2022 10:51 AM EDT) Anatomical Region Laterality Modality Lung Computed Tomogra phy Impressions 02/04/2022 10:54 AM EDT Impression: Technically successful CT-guided core needle biopsy of the left lung. Beam Dyer(s): Attending: Rich Baldwin MD Procedure/Teaching Attestation: ??I [...] have questions please contact the health director career that requested your imaging first. ? Narrative [...] CT-guided core needle biopsy of theleft lung. Beam Dyer(s): Attending: Rich Baldwin MD Procedure/Teaching Attestation: I performed the procedure. Moderate Sedation Attestation: I was present during the intra-service timeas documented by the IR nurse. Thank you for letting us participate in the care of this patient. If youare a health care provider and have any questions regarding this report,please contact the number below. For patients who have questions please contactthe health director career that requested your imaging first. Albino Bartholomew MD IMG CT ORDERABLES * Surgical Pathology Report (02/04/2022 10:40 AM EDT) Final Diagnosis [id number] ? [facility] The signing pathologist has (i) examined the relevant preparation(s) for the specimen(s) and (ii) rendered or confirmed the diagnosis(es). . ?Surgical Pathology DIAGNOSIS A - Lung, left, core biopsy: - Metastatic clear cell renal cell carcinoma. Electronically signed by: ?Danica Melissa MD Verified: ??02/10/2022 8:25 ?? Pathologist Performed at: ??-[facility] Dept. of Pathology, [place], [place] ADDITIONAL STUDIES Immunohistochemistry Studies: Formalin-fixed, paraffin-embedded [...] labeled A1. ??sns 02/10/2022 8:25 AM EDT [facility] LUNG STRUCTURE / Unknown 02/04/2022 10:40 AM EDT 02/04/2022 10:40 AM EDT Albino Bartholomew MD PATHOLOGY/CYTOLOGY O RDERABLES [facility] [place] [place] [address] * Specimen to Pathology (02/04/2022 8:09 AM EDT) AP Specimen 02/04/2022 8:09 AM EDT 02/04/2022 8:09 AM EDT Narrative [facility] - 02/04/2022 8:09 AM EDT Specimen requisition ordered. ??Separate Pathology report to follow Albino Bartholomew MD PATHOLOGY/CYTOLOGY O RDERABLES Performing Organization Address [facility]/ZIP Co de Phone Number [facility] [place] [place] [address] * Prothrombin Time (02/04/2022 7:52 AM EDT) Prothrombin Time 10.9 9.4 - 12.5 sec [facility] International Normalization Ratio 1.0 [facility] Comment: An INR <2.0 indicates adequate [...] MD HEMATOLOGY ORDERABLE S Performing Organization Address [facility]/ZIP Co de Phone Number [facility] [place] [place] [address] * Platelet count (02/04/2022 7:52 AM EDT) Platelet 189 145 - 357 x10(3)/mc L [facility] Immature Plt % 2.0 0.0 - 7.4 % [facility] Comment: Limitation of the Immature Platelet Fraction (IPF)-May be less reliable when the platelet count is less than 65c716/uL due to statistical imprecision. The IPF value [...] in a decreased state of production. References: [employer] The Clinical Value of the Immature Platelet Fraction (IPF) in Cell Recovery Document Number 10-1143 10/2010 [employer] The Role of the Immature Platelet Fraction (IPF) in the Differential Diagnosis of Thrombocytopenia, Document MKT-10-1209 V009/11/13 P009/13 Blood 02/04/2022 7:52 AM EDT 02/04/2022 7:58 AM EDT Narrative Resulting Agency Comment Spec In Lab Albino Bartholomew MD HEMATOLOGY ORDERABLE S Performing Organization Address City/State/[facility] [place] [address] documented in this encounter Visit Diagnoses Diagnosis [...] mg documented in this encounter Care Teams Criminal Researcher Relationship Specialty Start Date End Date Juan Dempsey MD [address] [place] [address] PCP - General Emergency Medicine 08/20/21 documented as of this encounter
--- OUTSIDE RECORDS SUMMARY | 2024-03-09 16:57 | XMS_ITS | Encounter Summary ---
Author Organization [facility] Address [facility] [place] [address] Care Team Providers Care Host/Hostess Ground Name Role Phone Juan Dempsey MD Primary Care Provider [phone] Encounter Details Date Type Department Care Team (Late st Contact Info) Description 01/07/2022 Orders Only [place] [address] Ana Pringle MD [facility] [place] [address] Drug-induced liver injury Social History Tobacco Use [...] [facility] Hematology Oncology [address] [place] [address] 03/29/2024 12:[address] [place] [address] Albino Bartholomew MD [facility] [place] [address] 04/05/2024 10:00 AM EST Office Visit Hematology [place] [address] Albino Bartholomew MD [facility] [address] [place] [address] documented as of this encounter Results * (ABNORMAL) Comprehensive metabolic panel (non-fasting) (02/04/2022 7:52 AM EDT) [facility] Glucose 104 65 - 199 mg/dL [facility] Comment:Diabetes: >=200 mg/d L plus symptoms Blood Urea Nitrogen 22(H) 10 - 20 mg/dL [facility] Creatinine 1.20 0.80 - 1.50 mg/dL [facility] Sodium 141 135 - 145 mmol/L [facility] Potassium 4.0 3.5 - 5.0 mmol/L [facility] Comment: Please note: ??Patients with WBC >100,000 may have falsely elevated Potassium levels. ??For accurate Potassium quantification in these patients send serum separator tube (gold top) for subsequent determinations. ??Contact the Clinical Chemistry Laboratory if there are any questions. Chloride 105 98 - 107 mmol/L [facility] Carbon Dioxide 29 22 - 31 mmol/L [facility] Anion Gap 7 5 - 15 mmol/L [facility] Calcium 9.3 8.5 - 10.5 mg/dL [facility] Protein, Total 6.7 6.1 - 8.0 g/dL [facility] Albumin 4.1 3.2 - 5.2 g/dL [facility] Aspartate Aminotransferase 18 0 - 39 unit/L [facility] Alanine Aminotransferase 24 0 - 55 unit/L [facility] Alkaline Phosphatase 92 40 - 130 unit/L [facility] Bilirubin, Total 0.3 0.2 - 1.3 mg/dL [facility] Est Glomerular Filtration Rate 67 >=60 mL/min/1. 73 m?? [place] [facility] [place] [address] documented in this encounter Visit Diagnoses Diagnosis Drug-induced liver injury documented in this encounter Care Teams Host/Hostess Ground Relationship Specialty Start Date End Date Juan Dempsey MD [address] [place] [address] PCP - General Emergency Medicine 08/20/21 documented as of this encounter
--- OUTSIDE RECORDS SUMMARY | 2024-03-09 16:57 | XMS_ITS | Encounter Summary ---
Author Organization [facility] Address [facility] [place] [address] Care Team Providers Care Cable Engineer Outside Plant Name Role Phone Juan Dempsey MD Primary Care Provider [phone] Encounter Details Date Type Department Care Team (Latest Contact Info) Description 02/04/2022 1:00 PM EDT - 02/04/2022 11:59 PM EDT Hospital Encounter XRay at [address] [place] [address] Rich Baldwin MD [facility] [place] [address] Discharge Disposition: Home Social History Tobacco Use [...] [facility] Hematology Oncology [address] [place] [address] 03/29/2024 12:[address] [place] [address] Albino Bartholomew MD [facility] [place] [address] 04/05/2024 10:00 AM EST Office Visit Hematology [place] [address] Albino Bartholomew MD [facility] [place] [address] documented as of this encounter Procedures Procedure [...] signed by: Ragini Molina MD, [facility] ([phone]), at 02/04/2022 3:02 PM Narrative 02/04/2022 3:02 [...] first. Electronically signed by: Ragini Molina MD, [facility] ([phone]), at 02/04/2022 3:02 PM Rich Baldwin MD IMG DX ORDERABLES documented in this encounter Visit Diagnoses Not on filedocumented in this encounter Care Teams Cable Engineer Outside Plant Relationship Specialty Start Date End Date Juan Dempsey MD [address] [place] [address] PCP - General Emergency Medicine 08/20/21 documented as of this encounter
--- OUTSIDE RECORDS SUMMARY | 2024-03-09 16:57 | XMS_ITS | Encounter Summary ---
Author Organization [facility] Address [facility] [place] [address] Care Team Providers Care Expert Medical Writer Name Role Phone Juan Dempsey MD Primary Care Provider [phone] Reason for Visit * Reason Comments Follow-up Encounter Details Date Type Department Care Team (Late st Contact Info) Description 11/26/2021 10:30 AM EDT Office Visit [place] [address] Albino Bartholomew MD [facility] DR HEMATOLOGY [place] [address] Kelin Carlos, [address] HEMATOLOGY AND ONCOLOGY [place], [place] [address] Renal cell carcinoma, unspecified laterality; Chronic deep [...] daughter; one step daughter as well 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 10/20/21 CXR ([facility]): 10/16/21: IMPRESSION 1. Unexpected finding: [...] taper. Pt prefers to get labs at [facility]. We'll send orders and I'll ask our front counter attendant to f/u on results. 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
--- OUTSIDE RECORDS SUMMARY | 2024-03-09 16:57 | XMS_ITS | Encounter Summary ---
Author Organization [facility] Address [facility] [place] [address] Care Team Providers Care Intelligence Officer Basic Name Role Phone Juan Dempsey MD Primary Care Provider [phone] Encounter Details Date Type Department Care Team (Late st Contact Info) Description 11/26/2021 12:00 PM EDT Office [place] [phone] Ana Pringle MD [facility] [place] [address] Drug-induced hepatitis Social History Tobacco Use Types [...] Pringle MD Section of Gastroenterology & Hepatology [address] [place] [address] Time spent reviewing records prior to this [...] [facility] [place] [address] [place], [place] [id number] 03/29/2024 12:[address] [place] [place] [address] Albino Bartholomew MD [facility] DR HEMATOLOGY [place] [address] 04/05/2024 10:00 AM EST Office Visit Hematology and Oncology at [place] [phone] Albino Bartholomew MD [facility] DR HEMATOLOGY [place] [address] Scheduled Orders Name Type Priority Associated Diagnoses [...] ORDERABLE [facility] [address] [place] [address] documented in this encounter Visit Diagnoses Diagnosis Drug-induced hepatitis Hepatitis, unspecified documented in this encounter Care Teams Intelligence Officer Basic Relationship Specialty Start Date End Date Juan Dempsey MD [address] [place] [address] PCP - General Emergency Medicine 08/20/21 documented as of this encounter
--- OUTSIDE RECORDS SUMMARY | 2024-03-09 16:57 | XMS_ITS | Encounter Summary ---
Author Organization [facility] Address [facility] [address] Care Team Providers Care Box Order Person Name Role Phone Juan Dempsey MD Primary Care Provider [phone] Encounter Details Date Type Department Care Team (Late st Contact Info) Description 02/04/2022 Orders [place] [address] Ana Pringle MD [facility] [place] [address] Drug-induced liver injury Social History Tobacco Use [...] No 07/09/2021 Housing Stability Vital Sign Answer Denins e Recorded In the last 12 months, [...] [place] [facility] [place] [address] [place] [address] 03/29/2024 12:[address] [place] [address] Albino Bartholomew MD [facility] [place] [address] 04/05/2024 10:00 AM EST Office Visit Hematology [place] [address] Albino Bartholomew MD [facility] [place] [address] documented as of this encounter Visit Diagnoses Diagnosis Drug-induced liver injury documented in this encounter Care Teams Box Order Person Relationship Specialty Start Date End Date Juan Dempsey MD [address] [place] [address] PCP - General Emergency Medicine 08/20/21 documented as of this encounter
--- OUTSIDE RECORDS SUMMARY | 2024-03-09 16:57 | XMS_ITS | Encounter Summary ---
Author Organization [place] [address] Care Team Providers Care Sanding Machine Operator Name Role Phone Juan Dempsey MD Primary Care Provider [phone] Reason for Referral * Diagnostic Test (Routine) - Closed Specialty Diagnoses / Procedures Referred By Contac t Referred To Contact Radiology Diagnoses Renal cell carcinoma, unspecified laterality Procedures MRI Abdomen wwo Contrast (Generic) Jordan Hou MD [facility] [address] [place] [address] Referral ID Status Reason Start Date Expiration Date V isits Requested Visits Authorized [id number] Closed Specialty Service Requested 10/21/2021 04/22/2023 1 1 Reason for Visit * Diagnostic Test (Routine) - Closed Specialty Diagnoses / Procedures Referred By Contjuan t Referred To Contact Radiology Diagnoses Renal cell carcinoma, unspecified laterality Procedures MRI Abdomen wwo Contrast (Generic) Jordan Hou MD [facility] [place] [address] [place] [address] Referral ID Status Reason Start Date Expiration Date V isits Requested Visits Authorized [id number] Closed Specialty Service Requested 10/21/2021 04/22/2023 1 1 Encounter Details Date Type Department Care Team (Latest Contact Info) Description 11/07/2021 7:10 PM EDT - 11/07/2021 11:59 PM EDT Hospital Encounter MRI at [facility] [place] [address] Jordan Hou MD [facility] [place] [address] Renal cell carcinoma, unspecified laterality [...] [facility] [place] [place] [address] [place] [address] 03/29/2024 12:[address] [place] [address] Albino Bartholomew MD [facility] [place] [address] 04/05/2024 10:00 AM EST Office Visit Hematology [place] [address] Albino Bartholomew MD [facility] [place] [address] documented as of this encounter Procedures Procedure [...] who have questions please contact the health personal caregiver that requested your imaging first. ? Electronically signed by: Tima Zacarias MD, [facility] ([phone]), at 11/08/2021 10:06 AM Narrative 11/08/2021 10:06 [...] patients who have questions please contactthe health personal caregiver that requested your imaging first. Electronically signed by: Tima Zacarias MD, [facility]([phone]), at 11/08/2021 10:06 AM Jordan Hou MD [facility] MRI ORDERABLES documented in this [...] mLs documented in this encounter Care Teams Sanding Machine Operator Relationship Specialty Start Date End Date Dege, Juan E, MD [address] [place] [address] PCP - General Emergency Medicine 08/20/21 documented as of this encounter
--- OUTSIDE RECORDS SUMMARY | 2024-03-09 16:57 | XMS_ITS | Encounter Summary ---
Author Organization [facility] Address [facility] [place] [address] Care Team Providers Care Taper Printed Circuit Layout Name Role Phone Juan Dempsey MD Primary Care Provider [phone] Encounter Details Date Type Department Care Team (Latest Contact Info) Description 02/04/2022 11:00 AM EDT - 02/04/2022 12:59 PM EDT Hospital Encounter XRay at [address] [place] [address] Rich Baldwin MD [facility] [place] [address] Discharge Disposition: Home Social History Tobacco Use [...] [facility] Hemat[facility] Oncology [address] [place] [address] 03/29/2024 12:[address] [place] [address] Albino Bartholomew MD [facility] HEMATOLOGY [place] [address] 04/05/2024 10:00 AM EST Office Visit Hematology [place] [address] Albino Bartholomew MD [facility] HEMATOLOGY [place] [address] documented as of this encounter Procedures Procedure [...] who have questions please contact the health clinical care leader that requested your imaging first. ? Narrative [...] patients who have questions please contactthe health clinical care leader that requested your imaging first. Rich Baldwin MD IMG DX ORDERABLES documented in this encounter Visit Diagnoses Not on filedocumented in this encounter Care Teams Taper Printed Circuit Layout Relationship Specialty Start Date End Date Juan Dempsey MD [address] [place] [address] PCP - General Emergency Medicine 08/20/21 documented as of this encounter
--- OUTSIDE RECORDS SUMMARY | 2024-03-09 16:57 | XMS_ITS | Encounter Summary ---
Author Organization [facility] Address [facility] [place] [address] Care Team Providers Care Retail Sales Professional Name Role Phone Juan Dempsey MD Primary Care Provider [phone] Reason for Visit * Consultation (Emergency) - Closed Specialty Diagnoses / Procedures Referred By Burak mcnair Referred To Contact Gastroenterology Diagnoses Elevated LFTs Kelin Carlos APRN [address] [place] [address] DR HEMATOLOGY [place] [address] Jordyn Merino MD [facility] [place] [address] Referral ID Status Reason Start Date Expiration Date V isits Requested Visits Authorized [id number] Closed Specialty Service Requested 10/29/2021 10/29/2022 1 1 Encounter Details Date Type Department Care Team (Latest Contact Info) Description 10/31/2021 2:00 PM EDT TH Visit (TeleHealth) [place] [address] Ana Pringle MD [facility] [place] [address] Drug-induced hepatitis; Autoimmune hepatitis Social [...] (Left); Achilles tendon surgery; Remv Kidney, Radical (57737) (Left, 06/23/2021); Cystourethroscopy (70752) (N/A, 06/23/2021); and Colonoscopy, Diagnostic (14135) (N/A, 10/02/2021). Family History: family history includes [...] Ref Range Status ??? COLONOSCOPY 10/02/2021 Final Value:[facility] Endoscopy Procedure Date: 10/02/2021 3:02 PM Patient Name: Raymundo Tenorio Date of : 1955 Age: 66 Order #: [id number] Instrument Name: [id number] Procedure: Colonoscopy Indications: Positive Cologuard test Providers: [...] PM ??? Surgical Pathology Report 10/02/2021 Final Value:[id number] Location: 4T; EA13; A The signing pathologist has (i) examined the relevant preparation(s) for the specimen(s) and (ii) rendered or confirmed the diagnosis(es). . Surgical Pathology DIAGNOSIS A - Transverse colon polyp, resection: - Tubular adenoma. Electronically signed by: Renea Acuna MD Verified: 10/09/2021 16:09 Pathologist Performed at: -[facility] [place], [place], [place] SPECIMEN(S) SUBMITTED A - Transverse colon [...] him in clinic when he [place] [facility] [place]. He will get laboratory investigations prior to this visit and we will plan on performing a FibroScan at this visit. We will work on obtaining his viral hepatitis testing from his primary care provider. The patient was located in [place] at the time of their visit. TIME SPENT 30 min Time spent during encounter with patient including counselin minutes An additional 10 minutes were spent before and after the visit on this same day in preparation for the appointment, ordering tests and/or prescriptions, communicating with referring providers and completing documentation Approximate total time devoted to this single encounter: 40 Ana Pringle MD [facility] [address] [place] [address] documented in this encounter Plan of Treatment Upcoming Encounters Date Type Department Care Team (Late st Contact Info) Description 03/29/2024 10:30 AM EST Laboratory Appointment Lab at [facility] [place] On[place] [address] [place] [address] 03/29/2024 12:[address] [place] [address] Albino Bartholomew MD [facility] HEMATOLOGY [place] [address] 04/05/2024 10:00 AM EST Office Visit Hematology [place] [address] Albino Bartholomew MD [facility] HEMATOLOGY [place] [address] documented as of this encounter Results * Smooth Muscle Antibody (11/26/2021 9:13 AM EDT) Sm Muscle Ab (AUGUST) Negative Negative [facility] Comment: Negative: No further testing will be performed ADDITIONAL INFORMATION This test was developed and its performance characteristics determined by [facility] in a manner consistent with CLIA requirements. This test has not been cleared or approved by the U.S. Food and Drug Administration. Test Performed by: [facility] - [address] [address] Test Engine Operator: Dominick Jara M.D. Ph.D.; CLIA# [id number] Blood 11/26/2021 9:13 AM EDT 11/26/2021 1:12 PM EDT Narrative Resulting Agency Comment Spec In Lab Ana Pringle MD LAB SEND OUT ORDERAB LES Performing Organization Address City/[facility]/ZIP Co de Phone Number [facility] [place] [address] * IgG (11/26/2021 9:13 AM EDT) Immunoglobulin G 992 700 - 1,600 mg/dL [facility] Comment: Pediatric Reference Intervals obtained from the [employer] Reference Interval project. http://www.[employer].ca/caliperproject/index.html Blood 11/26/2021 9:13 AM EDT 11/26/2021 9:24 AM EDT Narrative Resulting Agency Comment Spec In Lab Ana Pringle MD CHEMISTRY ORDERABLES Performing Organization Address [facility] Co de Phone Number [facility] [place] [address] documented in this encounter Visit Diagnoses Diagnosis Drug-induced hepatitis Hepatitis, unspecified Autoimmune hepatitis documented in this encounter Care Teams Retail Sales Professional Relationship Specialty Start Date End Date Juan Dempsey MD [address] [place] [address] PCP - General Emergency Medicine 08/20/21 documented as of this encounter
--- OUTSIDE RECORDS SUMMARY | 2024-03-09 16:57 | XMS_ITS | Encounter Summary ---
Author Organization [facility] Address [facility] [place] [address] Care Team Providers Care Inventory Technician Name Role Phone Juan Dempsey MD Primary Care Provider [phone] Encounter Details Date Type Department Care Team (Late st Contact Info) Description 02/05/2022 Abstract [place] [address] Ana Pringle MD [facility] [place] [address] Social History Tobacco Use Types Packs/Day Years [...] [facility] Hematology Oncology [address] [place] [address] 03/29/2024 12:[address] [place] [address] Albino Bartholomew MD [facility] [place] [address] 04/05/2024 10:00 AM EST Office Visit Hematology [place] [address] Albino Bartholomew MD [facility] [place] [address] documented as of this encounter Visit Diagnoses Not on filedocumented in this encounter Care Teams Inventory Technician Relationship Specialty Start Date End Date Juan Dempsey MD [address] [place] [address] PCP - General Emergency Medicine 08/20/21 documented as of this encounter
--- OUTSIDE RECORDS SUMMARY | 2024-03-09 16:57 | XMS_ITS | Encounter Summary ---
Author Organization [facility] Michael [facility] [address] Care Team Providers Care Tug Master Name Role Phone Juan Dempsey MD Primary Care Provider [phone] Reason for Referral * Consultation (Emergency) - Closed Specialty Diagnoses / Procedures Referred By Burak mcnair Referred To Contact Gastroenterology Diagnoses Elevated LFTs Kelin Carlos APRN [address] [place] [address] DR HEMATOLOGY [place] [address] Jordyn Merino MD [facility] [place] [address] Referral ID Status Reason Start Date Expiration Date V isits Requested Visits Authorized [id number] Closed Specialty Service Requested 10/29/2021 10/29/2022 1 1 Reason for Visit * Reason Comments Follow-up Encounter Details Date Type Department Care Team (Late st Contact Info) Description 10/29/2021 10:00 AM EDT Office Visit Hematology [place] [address] Kelin Carlos APRN [address] [place] [address] DR HEMATOLOGY AND ONCOLOGY [place], [place] [id number] Renal cell carcinoma, unspecified laterality; Elevated LFTs; [...] or approved for treating a specific patient. [employer] and its affiliates disclaim any warranty or liability relating to this information or the use thereof. The use of this information is governed by the Terms of Use, available at h ttps://www.[employer].com/en/know/gesvnmbo-tynzsyvqzktad-bprzg. Last Reviewed Date 2021-05-05 ?? 2021 [employer]. and its affiliates and/or licensors. All rights reserved. Add To Packet Print HL7 Request OK Packet Contents Conditions/Procedures Conditions Procedures Discharge Instructions Healthy Living Natural Products Medications Adult Medications Pediatric Medications Packet Options Language [] Chinese copy of non-Chinese leaflets [] Packet Summary [] Signature Page [...] original note were not included. 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 Advised pt to [...] [facility] [address] [place] [address] 03/29/2024 12:[address] [place] [place] [address] Albino Bartholomew MD [facility] DR [place] [address] 04/05/2024 10:00 AM EST Office Visit Hematology [place] [address] Albino Bartholomew MD [facility] DR [place] [address] Scheduled Referrals Name Type Priority Associated Diagnoses Order Schedule Referral to Gastroenterology Outpatient Referral STAT Elevated LFTs Ordered: 10/29/2021 documented as of this encounter Results * (ABNORMAL) Comprehensive metabolic panel (non-fasting) (11/26/2021 9:13 AM EDT) Glucose 184 65 - 199 mg/dL [facility] Comment:Diabetes: >=200 mg/d L plus symptoms Blood Urea Nitrogen 25(H) 10 - 20 mg/dL [facility] Creatinine 1.37 0.80 - 1.50 mg/dL [facility] Sodium 141 135 - 145 mmol/L [facility] Potassium 3.6 3.5 - 5.0 mmol/L [facility] Comment: Please note: ??Patients with WBC >100,000 may have falsely elevated Potassium levels. ??For accurate Potassium quantification in these patients send serum separator tube (gold top) for subsequent determinations. ??Contact the Clinical Chemistry Laboratory if there are any questions. Chloride 104 98 - 107 mmol/L [facility] Carbon Dioxide 28 22 - 31 mmol/L [facility] Anion Gap 9 5 - 15 mmol/L [facility] Calcium 9.3 8.5 - 10.5 mg/dL [facility] Protein, Total 6.5 6.1 - 8.0 g/dL [facility] Albumin 4.2 3.2 - 5.2 g/dL [facility] Aspartate Aminotransferase 17 0 - 39 unit/L [facility] Alanine Aminotransferase 28 0 - 55 unit/L [facility] Alkaline Phosphatase 95 40 - 130 unit/L [facility] Bilirubin, Total 0.5 0.2 - 1.3 mg/dL [facility] Est Glomerular Filtration Rate 57(L) >=60 mL/min/1. 73 m?? 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
--- OUTSIDE RECORDS SUMMARY | 2024-03-09 16:57 | XMS_ITS | Encounter Summary ---
Author Organization [facility] Address [facility] [place] [address] Care Team Providers Care Technology Lead Name Role Phone Juan Dempsey MD Primary Care Provider [phone] Encounter Details Date Type Department Care Team (Late st Contact Info) Description 11/05/2021 Telephone Hematology [place] [address] Daxa Arriola RN Social History [...] Kelin Carlos APRN Davis, Robin, RN; P [facility] Hem Onc Triage Gu Gilson Sanders. We only checked CMP since we were just wanting to f/u on LFTs with this draw. Thanks, Jennifer ?? Previous Messages ?? ----- Message ----- From: Gilson Tobar, RN Sent: 11/04/2021 ?? 5:11 PM EDT To: Kelin Carlos APRN Subject: RE: Cmp in from [facility] ? Hi! I gave him a call [...] [facility] H[facility] Oncology [address] [place] [address] 03/29/2024 12:[address] [place] [place] [address] Albino Bartholomew MD [facility] DR HEMATOLOGY [place] [address] 04/05/2024 10:00 AM EST Office Visit Hematology [place] [address] Albino Bartholomew MD [facility] DR HEMATOLOGY [place] [address] documented as of this encounter Visit Diagnoses Not on filedocumented in this encounter Care Teams Technology Lead Relationship Specialty Start Date End Date Juan Dempsey MD [address] [place] [address] PCP - General Emergency Medicine 08/20/21 documented as of this encounter
--- OUTSIDE RECORDS SUMMARY | 2024-03-09 16:57 | XMS_ITS | Encounter Summary ---
Author Organization [facility] Address [facility] [place] [address] Care Team Providers Care Dairy Manager Name Role Phone Juan Dempsey MD Primary Care Provider [phone] Encounter Details Date Type Department Care Team (Latest Contact Info) Description 11/26/2021 9:05 AM EDT - 11/26/2021 11:59 PM EDT Hospital Encounter Hematology [place] [phone] Drug-induced hepatitis; Autoimmune hepatitis; Renal cell carcinoma, [...] [facility] Hematology Oncology [address] [place] [address] 03/29/2024 12:[address] [place] [address] Albino Bartholomew MD [facility] DR HEMATOLOGY [place] [address] 04/05/2024 10:00 AM EST Office Visit Hematology and Oncology at [facility] [place] [address] Albino Bartholomew MD [facility] HEMATOLOGY [place] [address] Scheduled Orders Name Type Priority Associated Diagnoses [...] [facility] Blood 11/26/2021 9:13 AM EDT 11/26/2021 9:24 AM EDT Narrative Resulting Agency Comment Spec In Lab Ana Pringle MD CHEMISTRY ORDERABLES [facility] [place] [address] * (ABNORMAL) Differential, Automated (11/26/2021 9:13 AM EDT) [facility] Neutrophil % 78.4 % [facility] Neutrophil Absolute 6.67(H) 1.70 - 6.10 x10(3)/mc L [facility] Lymph % 15.3 % [facility] Lymphocytes Abs 1.3 0.9 - 3.2 x10(3)/mc L [facility] Monocyte % 2.6 % [facility] Monocyte Abs 0.2(L) 0.3 - 0.9 x10(3)/ L [facility] Eos % 1.9 % [facility] Eosinophils Abs 0.2 0.0 - 0.4 x10(3)/mc L [facility] Basophil % 1.1 % [facility] Baso Absolute 0.1 0.0 - 0.1 x10(3)/mc L [facility] Immature Gran % 0.70 % [facility] Comment: Immature granulocytes(IG's)percentage and absolute count will include metamyelocytes, myelocytes, and promyelocytes. Blood smears from CBCs yielding IG's will be scanned manually for concordance. If this scan disagrees with the automated IG or if promyelocytes are noted, a manual differential will be performed. Immature Gran Absolute 0.06(H) 0.00 - 0.04 x10(3)/mc L [facility] Blood 11/26/2021 9:13 AM EDT 11/26/2021 9:24 AM EDT Narrative Resulting Agency Comment Spec In Lab Kelin Carlos APRN HEMATOLOGY ORDERAB LES Performing Organization Address City/State/[facility] Co de Phone Number [facility] [place] [address] * (ABNORMAL) Hemogram (11/26/2021 9:13 AM EDT) White Blood Cell 8.5 4.0 - 9.5 x10(3)/mc L [facility] Red Blood Cell 5.07 4.58 - 5.54 x10(6)/mc L [facility] Hemoglobin 14.6 13.7 - 16.5 g/dL [facility] Hematocrit 45.9 40.5 - 48.5 % [facility] Mean Cell Volume 90.5 82.9 - 93.1 fL [facility] Mean Cell Hemoglobin 28.8 27.5 - 32.1 pg [facility] Mean Cell Hemoglobin Concentration 31.8(L) 32.0 - 35.7 g/dL [facility] Platelet 213 145 - 357 x10(3)/mc L [facility] RDW Standard Deviation 51.2(H) 36.0 - 45.0 fL [facility] RDW coefficient of variation 15.5(H) 11.4 - 13.8 % [facility] Mean Platelet Volume 9.4 7.6 - 12.9 fL [facility] NRBC% auto 0.0 % [facility] NRBC Absolute 0.000 0.000 - 0.000 x10(3)/mc L [facility] Blood 11/26/2021 9:13 AM EDT 11/26/2021 9:24 AM EDT Narrative Resulting Agency Comment Spec In Lab Kelin P Carlos PROJECT ENGINEER HEMATOLOGY ORDERAB LES [facility] [place] [address] * (ABNORMAL) Comprehensive metabolic panel (non-fasting) (11/26/2021 9:13 AM EDT) Glucose 184 65 - 199 mg/dL [facility] Comment:Diabetes: >=200 mg/d L plus symptoms Blood Urea Nitrogen 25(H) 10 - 20 mg/dL [facility] Creatinine 1.37 0.80 - 1.50 mg/dL [facility] Sodium 141 135 - 145 mmol/L [facility] Potassium 3.6 3.5 - 5.0 mmol/L [facility] Carbon Dioxide 28 22 - 31 mmol/L [facility] Anion Gap 9 5 - 15 mmol/L [facility] Calcium 9.3 8.5 - 10.5 mg/dL [facility] Protein, Total 6.5 6.1 - 8.0 g/dL [facility] Albumin 4.2 3.2 - 5.2 g/dL [facility] Aspartate Aminotransferase 17 0 - 39 unit/L [facility] Alanine Aminotransferase 28 0 - 55 unit/L [facility] Alkaline Phosphatase 95 40 - 130 unit/L [facility] Bilirubin, Total 0.5 0.2 - 1.3 mg/dL [facility] Est Glomerular Filtration Rate 57(L) >=60 mL/min/1. 73 m?? [facility] [facility] [...] APRN CHEMISTRY ORDERABL ES Performing Organization Address [facility] Co de Phone Number [facility] [place] [address] * IgG (11/26/2021 9:13 AM EDT) Immunoglobulin G 992 700 - 1,600 mg/dL [facility] Comment: Pediatric Reference Intervals obtained from the [employer] Reference Interval project. http://www.ECO.ca/caliperproject/index.html Blood 11/26/2021 9:13 AM EDT 11/26/2021 9:24 AM EDT Narrative Resulting Agency Comment Spec In Lab Ana Pringle MD CHEMISTRY ORDERABLES Performing Organization Address [facility] Co de Phone Number [facility] [place] [address] * Smooth Muscle Antibody (11/26/2021 9:13 AM EDT) Sm Muscle Ab (MAY) Negative Negative [facility] Comment: Negative: No further testing will be performed ADDITIONAL INFORMATION This test was developed and its performance characteristics determined by [facility] in a manner consistent with CLIA requirements. This test has not been cleared or approved by the U.S. Food and Drug Administration. Test Performed by: [facility] [address] [place] [address] Import Export Manager: Dominick Jara M.D. Ph.D.; CLIA# [id number] Blood 11/26/2021 9:13 AM EDT 11/26/2021 1:12 PM EDT Narrative Resulting Agency Comment Spec In Lab Ana Pringle MD LAB SEND OUT ORDERAB LES Performing Organization Address City/State/[facility] Co de Phone Number [facility] [place] [address] documented in this encounter Visit Diagnoses Diagnosis Drug-induced hepatitis Hepatitis, unspecified Autoimmune hepatitis Renal cell carcinoma, unspecified laterality Elevated LFTs Other abnormal blood chemistry documented in this encounter Care Teams Dairy Manager Relationship Specialty Start Date End Date Juan Dempsey MD [address] [place] [address] PCP - General Emergency Medicine 08/20/21 documented as of this encounter
--- OUTSIDE RECORDS SUMMARY | 2024-03-09 16:57 | XMS_ITS | Encounter Summary ---
Author Organization [facility] Address [facility] [place] [address] Care Team Providers Care Supervisor Building Maintenance Name Role Phone Juan Dempsey MD Primary Care Provider [phone] Encounter Details Date Type Department Care Team (Latest Contact Info) Description 12/22/2021 8:25 AM EDT Laboratory Appointment Laboratory at [facility] [place] [address] Elevated LFTs; Renal cell carcinoma, [...] AM EST Laboratory Appointment Lab at [facility] Hematology Oncology [address] [place] [address] 03/29/2024 12:[address] [place] [place] [address] Albino Bartholomew MD [facility] [address] HEMATOLOGY [place] [address] 04/05/2024 10:00 AM EST Office Visit [place]ology [place] [address] Albino Bartholomew MD [facility] [address] HEMATOLOGY [place] [address] documented as of this encounter Procedures Procedure [...] HEMATOLOGY ORDERABLE S [facility] [address] [place] [address] * (ABNORMAL) Hemogram (12/22/2021 8:30 AM EDT) White Blood Cell 10.6(H) 4.0 - 9.5 x10(3)/mc L [facility] Red Blood Cell 5.00 4.58 - 5.54 x10(6)/mc L [facility] Hemoglobin 14.7 13.7 - 16.5 g/dL [facility] Hematocrit 45.5 40.5 - 48.5 % [facility] Mean Cell Volume 91.0 82.9 - 93.1 fL [facility] Mean Cell Hemoglobin 29.4 27.5 - 32.1 pg [facility] Mean Cell Hemoglobin Concentration 32.3 32.0 - 35.7 g/dL [facility] Platelet 217 145 - 357 x10(3)/mc L [facility] RDW Standard Deviation 47.0(H) 36.0 - 45.0 fL [facility] RDW coefficient of variation 13.8 11.4 - 13.8 % [facility] Mean Platelet Volume 9.4 7.6 - 12.9 fL [facility] Blood 12/22/2021 8:30 AM EDT 12/22/2021 8:44 AM EDT Narrative Resulting Agency Comment Spec In Lab Ana Pringle MD HEMATOLOGY ORDERABLE S [facility] [address] [place] [address] * (ABNORMAL) Prothrombin Time (12/22/2021 8:30 AM EDT) Prothrombin Time 14.3(H) 9.4 - 12.5 sec [facility] International Normalization Ratio 1.2 [facility] Comment: An INR <2.0 indicates [...] ORDERABLE S LABORATORY [address] [place] [address] * (ABNORMAL) Comprehensive metabolic panel (non-fasting) (12/22/2021 [...] [facility] [address] [place] [address] documented in this encounter Visit Diagnoses Diagnosis Elevated LFTs Other abnormal blood chemistry Renal cell carcinoma, unspecified laterality Drug-induced hepatitis Hepatitis, unspecified documented in this encounter Care Teams Supervisor Building Maintenance Relationship Specialty Start Date End Date Juan Dempsey MD [address] [place] [address] PCP - General Emergency Medicine 08/20/21 documented as of this encounter
--- OUTSIDE RECORDS SUMMARY | 2024-03-09 16:57 | XMS_ITS | Encounter Summary ---
Author Organization [facility] Address [facility] [place] [address] Care Team Providers Care Varnish Melter Name Role Phone Juan Dempsey MD Primary Care Provider [phone] Encounter Details Date Type Department Care Team (Latest Contact Info) Description 10/28/2021 9:30 AM EDT Laboratory Appointment Lab at [facility] [address] [place] [address] Renal cell carcinoma, unspecified laterality [...] [facility] H[place] Oncology [address] [place] [address] 03/29/2024 12:[address] [place] [place] [address] Albino Bartholomew MD [facility] [address] [place] [address] 04/05/2024 10:00 AM EST Office Visit [place]ology [place] [address] Albino Bartholomew MD [facility] [address] [place] [address] documented as of this encounter Procedures Procedure [...] 9:41 AM EDT) Neutrophil % 77.2 % [facility] Neutrophil Absolute 7.15(H) 1.70 - 6.10 x10(3)/mc L [facility] Lymph % 11.8 % [facility] Lymphocytes Abs 1.1 0.9 - 3.2 x10(3)/mc L [facility] Monocyte % 5.2 % [facility] Monocyte Abs 0.5 0.3 - 0.9 x10(3)/ L [facility] Eos % 0.2 % [facility] Eosinophils Abs 0.0 0.0 - 0.4 x10(3)/mc L [facility] Basophil % 0.6 % [facility] Baso Absolute 0.1 0.0 - 0.1 x10(3)/mc L [facility] Immature Gran % 5.00 % [facility] Comment: Immature granulocytes(IG's)percentage and absolute count will include metamyelocytes, myelocytes, and promyelocytes. Blood smears from CBCs yielding IG's will be scanned manually for concordance. If this scan disagrees with the automated IG or if promyelocytes are noted, a manual differential will be performed. Immature Gran Absolute 0.46(H) 0.00 - 0.04 x10(3)/mc L [facility] Blood 10/28/2021 9:41 AM EDT 10/28/2021 12:45 PM EDT Narrative Resulting Agency Comment Spec In Lab Albino Bartholomew MD HEMATOLOGY ORDERABLE S [facility] [place] [id number] * (ABNORMAL) Hemogram (10/28/2021 9:41 AM EDT) [facility] White Blood Cell 9.3 4.0 - 9.5 x10(3)/[facility] Red Blood Cell 4.37(L) 4.58 - 5.54 x10(6)/[facility] Hemoglobin 12.2(L) 13.7 - 16.5 g/dL [facility] Hematocrit 38.4(L) 40.5 - 48.5 % [facility] Mean Cell Volume 87.9 82.9 - 93.1 [facility] Mean Cell Hemoglobin 27.9 27.5 - 32.1 pg [facility] Mean Cell Hemoglobin Concentration 31.8(L) 32.0 - 35.7 g/dL [facility] Platelet 275 145 - 357 x10(3)/[facility] RDW Standard Deviation 53.2(H) 36.0 - 45.0 [facility] RDW coefficient of variation 16.6(H) 11.4 - 13.8 % [facility] Mean Platelet Volume 9.7 7.6 - 12.9 [facility] NRBC% auto 0.0 % [facility] NRBC Absolute 0.000 0.000 - 0.000 x10(3)/[facility] Blood 10/28/2021 9:41 AM EDT 10/28/2021 12:45 PM EDT Narrative Resulting Agency Comment Spec In Lab Albino Bartholomew MD HEMATOLOGY ORDERABLE S [facility] [place] [address] * (ABNORMAL) Comprehensive metabolic panel (non-fasting) (10/28/2021 9:41 AM EDT) [facility] Glucose 130 65 - 199 mg/dL [facility] Comment:Diabetes: >=200 mg/d L plus symptoms Blood Urea Nitrogen 22(H) 10 - 20 mg/dL [facility] Creatinine 1.25 0.80 - 1.50 mg/dL [facility] Sodium 139 135 - 145 mmol/L [facility] Potassium 4.1 3.5 - 5.0 mmol/L [facility] Comment: Please note: ??Patients with WBC >100,000 may have falsely elevated Potassium levels. ??For accurate Potassium quantification in these patients send serum separator tube (gold top) for subsequent determinations. ??Contact the Clinical Chemistry Laboratory if there are any questions. Chloride 105 98 - 107 mmol/L [facility] Carbon Dioxide 29 22 - 31 mmol/L [facility] Anion Gap 5 5 - 15 mmol/L [facility] Calcium 9.0 8.5 - 10.5 mg/dL [facility] Protein, Total 6.0(L) 6.1 - 8.0 g/dL [facility] Albumin 3.8 3.2 - 5.2 g/dL [facility] Aspartate Aminotransferase 44(H) 0 - 39 unit/L [facility] Alanine Aminotransferase 157(H) 0 - 55 unit/L [facility] Alkaline Phosphatase 102 40 - 130 unit/L [facility] Bilirubin, Total 0.5 0.2 - 1.3 mg/dL [facility] Est Glomerular Filtration Rate 64 >=60 mL/min/1. 73 m?? [facility] Comment: This patient's estimated GFR [...] Bartholomew MD CHEMISTRY ORDERABLES Performing Organization Address City/State/[facility] Co de Phone Number [facility] [place] [address] documented in this encounter Visit Diagnoses Diagnosis Renal cell carcinoma, unspecified laterality documented in this encounter Care Teams Varnish Melter Relationship Specialty Start Date End Date Juan Dempsey MD [address] [place] [address] PCP - General Emergency Medicine 08/20/21 documented as of this encounter
--- OUTSIDE RECORDS SUMMARY | 2024-03-09 16:57 | XMS_ITS | Encounter Summary ---
Author Organization [facility] Address [facility] [place] [address] Care Team Providers Care Supervisor Lead Burning Name Role Phone Juan Dempsey MD Primary Care Provider [phone] Encounter Details Date Type Department Care Team (Late st Contact Info) Description 11/19/2021 Orders [place] [address] Ana Pringle MD [facility] [place] [address] Drug-induced hepatitis Social History Tobacco Use Types [...] [facility] Hematology Oncology [address] [place] [address] 03/29/2024 12:[address] [place] [place] [address] Albino Bartholomew MD [facility] DR HEMATOLOGY [place] [address] 04/05/2024 10:00 AM EST Office Visit [place]ology [place] [address] Albino Bartholomew MD [facility] DR HEMATOLOGY [place] [address] documented as of this encounter Visit Diagnoses Diagnosis Drug-induced hepatitis Hepatitis, unspecified documented in this encounter Care Teams Supervisor Lead Burning Relationship Specialty Start Date End Date Juan Dempsey MD [address] [place] [address] PCP - General Emergency Medicine 08/20/21 documented as of this encounter
--- OUTSIDE RECORDS SUMMARY | 2024-03-09 16:57 | XMS_ITS | Encounter Summary ---
Author Organization [facility] [place] [address] Care Team Providers Care It Disaster Recovery Manager Name Role Phone Juan Dempsey MD Primary Care Provider [phone] Encounter Details Date Type Department Care Team (Latest Contact Info) Description 02/04/2022 7:40 AM EDT Laboratory Appointment Lab [address] [place] [address] Pre-op testing; Renal cell carcinoma, [...] [facility] Hematology Oncology [address] [place] [address] 03/29/2024 12:[address] [place] [address] Albino Bartholomew MD [facility] DR HEMATOLOGY [place] [address] 04/05/2024 10:00 AM EST Office Visit Hematology [place] [address] Albino Bartholomew MD [facility] [address] HEMATOLOGY [place] [address] documented as of this encounter Procedures Procedure [...] * Bilirubin, Direct (02/04/2022 7:52 AM EDT) [facility] Bilirubin, Direct 0.1 0.0 - 0.3 mg/dL [facility] Blood 02/04/2022 7:52 AM EDT 02/04/2022 7:58 AM EDT Narrative Resulting Agency Comment Spec In Lab Ana Pringle MD CHEMISTRY ORDERABLES Performing Organization Address City/State/[facility] Co de Phone Number [facility] [place] [address] * (ABNORMAL) Differential, Automated (02/04/2022 7:52 AM EDT) [facility] Neutrophil % 72.9 % [facility] Neutrophil Absolute 7.51(H) 1.70 - 6.10 x10(3)/mc L [facility] Lymph % 18.3 % [facility] Lymphocytes Abs 1.9 0.9 - 3.2 x10(3)/mc L [facility] Monocyte % 5.7 % [facility] Monocyte Abs 0.6 0.3 - 0.9 x10(3)/mc L [facility] Eos % 1.6 % [facility] Eosinophils Abs 0.2 0.0 - 0.4 x10(3)/ L [facility] Basophil % 0.9 % [facility] Baso Absolute 0.1 0.0 - 0.1 x10(3)/[facility] Immature Gran % 0.60 % [facility] Comment: Immature granulocytes(IG's)percentage and absolute count will include metamyelocytes, myelocytes, and promyelocytes. Blood smears from CBCs yielding IG's will be scanned manually for concordance. If this scan disagrees with the automated IG or if promyelocytes are noted, a manual differential will be performed. Immature Gran Absolute 0.06(H) 0.00 - 0.04 x10(3)/[facility] Blood 02/04/2022 7:52 AM EDT 02/04/2022 7:58 AM EDT Narrative Resulting Agency Comment Spec In Lab Ana Pringle MD HEMATOLOGY ORDERABLE S [facility] [place] [address] * (ABNORMAL) Hemogram (02/04/2022 7:52 AM EDT) White Blood Cell 10.3(H) 4.0 - 9.5 x10(3)/[facility] Red Blood Cell 5.09 4.58 - 5.54 x10(6)/[facility] Hemoglobin 14.5 13.7 - [...] HEMATOLOGY ORDERABLE S [facility] [place] [address] * (ABNORMAL) Comprehensive metabolic panel (non-fasting) (02/04/2022 [...] MD CHEMISTRY ORDERABLES [facility] [place] [address] * Prothrombin Time (02/04/2022 7:52 AM EDT) [...] HEMATOLOGY ORDERABLE S [facility] [place] [address] * Platelet count (02/04/2022 7:52 AM EDT) Platelet 189 145 - 357 x10(3)/mc L [facility] Immature Plt % 2.0 0.0 - 7.4 % [facility] Comment: Limitation of the Immature Platelet Fraction (IPF)-May be less reliable when the platelet count is less than 68f852/uL due to statistical imprecision. The IPF value [...] in a decreased state of production. References: [employer] The Clinical Value of the Immature Platelet Fraction (IPF) in Cell Recovery Document Number [id number] 10/2010 [employer] The Role of the Immature Platelet Fraction (IPF) in the Differential Diagnosis of Thrombocytopenia, Document [id number] V05/04/15 P0514 Blood 02/04/2022 7:52 AM EDT 02/04/2022 7:58 AM EDT Narrative Resulting Agency Comment Spec In Lab Albino Bartholomew MD HEMATOLOGY ORDERABLE S Performing Organization Address City/[facility]/ZIP Co de Phone Number [facility] [place] [address] documented in this encounter Visit Diagnoses Diagnosis Pre-op testing Preoperative examination, unspecified Renal cell carcinoma, unspecified laterality Drug-induced liver injury Autoimmune hepatitis documented in this encounter Care Teams It Disaster Recovery Manager Relationship Specialty Start Date End Date Juan Dempsey MD [address] [place] [address] PCP - General Emergency Medicine 08/20/21 documented as of this encounter
--- OUTSIDE RECORDS SUMMARY | 2024-03-09 16:58 | XMS_ITS | Encounter Summary ---
Author Organization [facility] Address [facility] [place] [address] Care Team Providers Care Triple Valve Mechanic Name Role Phone Juan Dempsey MD Primary Care Provider [phone] Encounter Details Date Type Department Care Team (Late st Contact Info) Description 09/10/2021 Telephone [place] [address] Noemí Barba RN Social History [...] 09/10/2021 7:40 AM EDT Follow-up: F/U on [facility] 09/11. Following LFT's, Kidney function & [...] [facility] Hematology Oncology [address] [place] [address] 03/29/2024 12:[address] [place] [place] [address] Albino Bartholomew MD [facility] HEMATOLOGY [place] [address] 04/05/2024 10:00 AM EST Office Visit [place]ology [place] [address] Albino Bartholomew MD [facility] HEMATOLOGY [place] [address] documented as of this encounter Visit Diagnoses Not on filedocumented in this encounter Care Teams Triple Valve Mechanic Relationship Specialty Start Date End Date Juan Dempsey MD [address] [place] [address] PCP - General Emergency Medicine 08/20/21 documented as of this encounter
--- OUTSIDE RECORDS SUMMARY | 2024-03-09 16:58 | XMS_ITS | Encounter Summary ---
Author Organization [facility] Address [facility] [place] [address] Care Team Providers Care Corsetier Name Role Phone Juan Dempsey MD Primary Care Provider [phone] Encounter Details Date Type Department Care Team (Late st Contact Info) Description 10/24/2021 Telephone Hematology [place] [address] Tara Dewey MD [facility] DR HEMATOLOGY/[place] [address] Social History Tobacco Use Types Packs/Day Years [...] Tara Lima M.D. Hematology/Oncology Fellow Pager # [phone] 10/24/21, 7:35 AM Hematology/Oncology Clinic [facility] [place] [phone] documented in this encounter Plan of Treatment Upcoming Encounters Date Type Department Care Team (Late st Contact Info) Description 03/29/2024 10:30 AM EST Laboratory Appointment Lab at [facility] Hematology Oncology [address] [place] [address] 03/29/2024 12:[address] [place] [address] Albino Bartholomew MD [facility] DR [place] [address] 04/05/2024 10:00 AM EST Office Visit Hematology [place] [address] Albino Bartholomew MD [facility] DR [place] [address] documented as of this encounter Visit Diagnoses Not on filedocumented in this encounter Care Teams Corsetier Relationship Specialty Start Date End Date Juan Dempsey MD [address] [place] [address] PCP - General Emergency Medicine 08/20/21 documented as of this encounter
--- OUTSIDE RECORDS SUMMARY | 2024-03-09 16:58 | XMS_ITS | Encounter Summary ---
Author Organization [facility] Address [facility] [place] [address] Care Team Providers Care Racing Mechanic Name Role Phone Juan Dempsey MD Primary Care Provider [phone] Encounter Details Date Type Department Care Team (Late st Contact Info) Description 09/18/2021 Orders Only Hematology [place] [phone] Kelin Carlos, SOLE SCRAPER [address] [place] [address] DR HEMATOLOGY AND ONCOLOGY [place], [place] [id number] Renal cell carcinoma, unspecified laterality; Elevated LFTs [...] [facility] H[facility] Oncology [address] [place] [address] 03/29/2024 12:[address] [place] [address] Albino Bartholomew MD [facility] DR HEMATOLOGY [place] [address] 04/05/2024 10:00 AM EST Office Visit Hematology [place] [address] Albino Bartholomew MD [facility] DR HEMATOLOGY [place] [address] documented as of this encounter Visit Diagnoses Diagnosis Renal cell carcinoma, unspecified laterality Elevated LFTs Other abnormal blood chemistry documented in this encounter Care Teams Racing Mechanic Relationship Specialty Start Date End Date Juan Dempsey MD [address] [place] [address] PCP - General Emergency Medicine 08/20/21 documented as of this encounter
--- OUTSIDE RECORDS SUMMARY | 2024-03-09 16:58 | XMS_ITS | Encounter Summary ---
Author Organization [facility] Address [facility] [place] [address] Care Team Providers Care Independent Agent Music Education Name Role Phone Juan Dempsey MD Primary Care Provider [phone] Reason for Referral * Diagnostic Test (Routine) - Closed Specialty Diagnoses / Procedures Referred By Contjuan t Referred To Contact Radiology Diagnoses Renal cell carcinoma, unspecified laterality Procedures MRI Abdomen wwo Contrast (Generic) Jordan Hou MD [facility] [address] [place] [address] Referral ID Status Reason Start Date Expiration Date V isits Requested Visits Authorized [id number] Closed Specialty Service Requested 10/21/2021 04/22/2023 1 1 Encounter Details Date Type Department Care Team (Latest Contact Info) Description 10/21/2021 10:00 AM EDT TH Visit (TeleHealth) [place] [address] Jordan Hou MD [facility] [address] Renal cell carcinoma, unspecified laterality [...] consent to receiving health care services at [facility] through telemedicine. The patient acknowledges that the [...] MD Verified: ??07/02/2021 11:14 ??Pathologist Performed at: ??-[facility] Dept. of Pathology, [place], [place] ? Surgical Pathology DIAGNOSIS A - Left Kidney, biopsy (1) Clear cell renal cell carcinoma, pT3a N1, see synoptic report. Electronically signed by: ?Renea Acuna MD Verified: ??07/02/2021 10:38 ??Pathologist Performed at: ??-[facility] Dept. of Pathology, [place], [place] SYNOPTIC Specimen Parts: ??A Specimen ?Procedure: [...] DIAGNOSTIC performed by Jordyn Merino MD at [facility] ENDOSCOPY ??? PRO CYSTOURETHROSCOPY N/A 06/23/2021 CYSTO, CYSTOURETHROSCOPY, DIAGNOSTIC (WRVU 2.23) performed by Jordan Hou MD at [facility] MAIN OR ??? PRO REMV KIDNEY, RADICAL Left 06/23/2021 @NEPHRECTOMY, RADICAL W\REG LYMPHADENECTOMY &\OR VENA CAVA THROMBECTOMY (WRVU 23.81) performed by Jordan Hou MD at [facility] MAIN OR Social History Socioeconomic History [...] [facility] Hematology Oncology [address] [place] [address] 03/29/2024 12:[address] [place] [address] Albino Bartholomew MD [facility] [place] [address] 04/05/2024 10:00 AM EST Office Visit Hematology [place] [address] Albino Bartholomew MD [facility] [address] [place] [address] documented as of this encounter Results * [...] who have questions please contact the health progressive care nurse that requested your imaging first. [...] patients who have questions please contactthe health progressive care nurse that requested your imaging first. Jordan Hou MD IMG MRI ORDERABLES documented in this encounter Visit Diagnoses Diagnosis Renal cell carcinoma, unspecified laterality Renal cell carcinoma, unspecified laterality documented in this encounter Care Teams Independent Agent Music Education Relationship Specialty Start Date End Date Juan Dempsey MD [address] [place] [address] PCP - General Emergency Medicine 08/20/21 documented as of this encounter
--- OUTSIDE RECORDS SUMMARY | 2024-03-09 16:58 | XMS_ITS | Encounter Summary ---
Author Organization [facility] Address [facility] [place] [address] Care Team Providers Care Body Corporate Manager Name Role Phone Juan Dempsey MD Primary Care Provider [phone] Encounter Details Date Type Department Care Team (Late st Contact Info) Description 09/24/2021 Telephone Hematology [place] [address] Noemí Barba RN Social History [...] provider- Jennifer Carlos APRN: CMP weekly at [facility] to monitor LFTs. Lab [...] a CMP drawn again on 10/01 at [facility]. They have standing orders already andhe will walk in for this lab draw. Reviewed we would call him on 10/01 to review lab results and discu ss further pred taper. He was encouraged to call back should he have further questions or concerns.He verbalized understanding. hand slitter to follow-up on CMP results on 10/01 [...] [facility] Hematology Oncology [address] [place] [address] 03/29/2024 12:[address] [place] [address] Albino Bartholomew MD [facility] [place] [address] 04/05/2024 10:00 AM EST Office Visit [place]ematology [place] [address] Albino Bartholomew MD [facility] [address] [place] [address] documented as of this encounter Procedures Procedure [...] on filedocumented in this encounter Care Teams Body Corporate Manager Relationship Specialty Start Date End Date Juan Dempsey MD [address] [place] [address] PCP - General Emergency Medicine 08/20/21 documented as of this encounter
--- OUTSIDE RECORDS SUMMARY | 2024-03-09 16:58 | XMS_ITS | Encounter Summary ---
Author Organization [facility] Address [facility] [place] [address] Care Team Providers Care Coding Manager Name Role Phone Juan Dempsey MD Primary Care Provider [phone] Encounter Details Date Type Department Care Team (Late st Contact Info) Description 10/16/2021 Telephone Hematology [place] [address] Daxa Arriola RN Social History [...] 8:03 AM EDT Message received from clinical box machine operator: labs in! Message received from provider: Nursing: will continue weekly CMP for f/u on liver function and Cr at [facility] Prednisone taper weekly if LFTs are [...] [facility] On[facility] [address] [place] [address] 03/29/2024 12:[address] [place] [address] Albino Bartholomew MD [facility] DR HEMATOLOGY [place] [address] 04/05/2024 10:00 AM EST Office Visit Hematology [place] [address] Albino Bartholomew MD [facility] DR HEMATOLOGY [place] [address] documented as of this encounter Visit Diagnoses Not on filedocumented in this encounter Care Teams Coding Manager Relationship Specialty Start Date End Date Juan Dempsey MD [address] [place] [address] PCP - General Emergency Medicine 08/20/21 documented as of this encounter
--- OUTSIDE RECORDS SUMMARY | 2024-03-09 16:58 | XMS_ITS | Encounter Summary ---
Author Organization [facility] Address [facility] [place] [address] Care Team Providers Care Skein Mercerizing Machine Operator Name Role Phone Juan Dempsey MD Primary Care Provider [phone] Reason for Referral * Diagnostic Test (Routine) - Closed Specialty Diagnoses / Procedures Referred By Contac t Referred To Contact Diagnoses Renal mass Procedures CT Chest wo Contrast (Generic) Jordan Hou MD [facility] [place] [address] Referral ID Status Reason Start Date Expiration Date V isits Requested Visits Authorized [id number] Closed Specialty Service Requested 05/26/2021 11/23/2022 1 1 Reason for Visit * Diagnostic Test (Routine) - Closed Specialty Diagnoses / Procedures Referred By Contac t Referred To Contact Diagnoses Renal mass Procedures CT Chest wo Contrast (Generic) Jordan Hou MD [facility] [place] [address] Referral ID Status Reason Start Date Expiration Date V isits Requested Visits Authorized [id number] Closed Specialty Service Requested 05/26/2021 11/23/2022 1 1 Encounter Details Date Type Department Care Team (Latest Contact Info) Description 10/16/2021 12:37 PM EDT - 10/16/2021 11:59 PM EDT Hospital Encounter CT Scan at [facility] [place] [address] Jordan Hou MD [facility] [place] [address] Renal mass Discharge Disposition: Home Social History [...] [facility] Hematology Oncology [address] [place] [address] 03/29/2024 12:[address] [place] [address] Albino Bartholomew MD [facility] DR [place] [address] 04/05/2024 10:00 AM EST Office Visit Hematology [place] [address] Albino Bartholomew MD [facility] DR [place] [address] documented as of this encounter Procedures Procedure [...] who have questions please contact the health managed care manager that requested your imaging first. ? Electronically signed by: Jaja Hamilton MD, [facility] ([phone]), at 10/16/2021 4:28 PM Narrative 10/16/2021 4:28 [...] ureter documented in this encounter Care Teams Skein Mercerizing Machine Operator Relationship Specialty Start Date End Date Juan Dempsey MD [address] [place] [address] PCP - General Emergency Medicine 08/20/21 documented as of this encounter
--- OUTSIDE RECORDS SUMMARY | 2024-03-09 16:58 | XMS_ITS | Encounter Summary ---
Author Organization [facility] Address [facility] [place] [address] Care Team Providers Care Land Development Project Manager Name Role Phone Juan Dempsey MD Primary Care Provider [phone] Encounter Details Date Type Department Care Team (Late st Contact Info) Description 09/05/2021 Orders Only [place] [address] Noemí Barba RN Renal cell carcinoma, unspecified [...] [facility] Hematology Oncology [address] [place] [address] 03/29/2024 12:[address] [place] [place] [address] Albion Bartholomew MD [facility] DR HEMATOLOGY [place] [address] 04/05/2024 10:00 AM EST Office Visit [place]ematology [place] [address] Albino Bartholomew MD [facility] DR HEMATOLOGY [place] [address] Scheduled Orders Name Type Priority Associated Diagnoses Orde r Schedule Comprehensive metabolic panel (non-fasting) Lab STAT Renal cell carcinoma, unspecified laterality Expected: 09/08/2021 (Approximate), Expires: 03/10/2022 documented as of this encounter Visit Diagnoses Diagnosis Renal cell carcinoma, unspecified laterality documented in this encounter Care Teams Land Development Project Manager Relationship Specialty Start Date End Date Juan Dempsey MD [address] [place] [address] PCP - General Emergency Medicine 08/20/21 documented as of this encounter
--- OUTSIDE RECORDS SUMMARY | 2024-03-09 16:58 | XMS_ITS | Encounter Summary ---
Author Organization [facility] Address [facility] [address] Care Team Providers Care Inventory Associate And Driver Name Role Phone Juan Dempsey MD Primary Care Provider [phone] Encounter Details Date Type Department Care Team (Late st Contact Info) Description 10/20/2021 8:05 PM EDT Ancillary Procedure Radiology Library at [facility] [place] [address] Juan Dempsey MD [address] [place] [address] Social History Tobacco Use Types [...] [facility] Hematology Oncology [address] [place] [address] 03/29/2024 12:[address] [place] [address] Albino Bartholomew MD [facility] DR HEMATOLOGY [place] [address] 04/05/2024 10:00 AM EST Office Visit Hematology [place] [address] Albino Bartholomew MD [facility] DR HEMATOLOGY [place] [address] documented as of this encounter Procedures Procedure [...] Dempsey MD IMG FILM LIBRARY ORD ERABLES [place], [place] documented in this encounter Visit Diagnoses Not on filedocumented in this encounter Care Teams Inventory Associate And Driver Relationship Specialty Start Date End Date Juan Dempsey MD [address] [place] [address] PCP - General Emergency Medicine 08/20/21 documented as of this encounter
--- OUTSIDE RECORDS SUMMARY | 2024-03-09 16:58 | XMS_ITS | Encounter Summary ---
Author Organization [facility] Address [facility] [place] [address] Care Team Providers Care Global Upstream Marketing Manager Name Role Phone Juan Dmepsey MD Primary Care Provider [phone] Reason for Visit * Reason Onset Date Comments Error 09/04/2021 Encounter Details Date Type Department Care Team (Late st Contact Info) Description 09/04/2021 Telephone Hematology [place] [address] Daxa Arriola RN Error Social [...] [facility] [address] [place] [address] 03/29/2024 12:[address] [place] [address] Albino Bartholomew MD [facility] [place] [address] 04/05/2024 10:00 AM EST Office Visit [place]ematology [place] [address] Albino Bartholomew MD [facility] [place] [address] documented as of this encounter Visit Diagnoses Not on filedocumented in this encounter Care Teams Global Upstream Marketing Manager Relationship Specialty Start Date End Date Juan Dempsey MD [address] [place] [address] PCP - General Emergency Medicine 08/20/21 documented as of this encounter
--- OUTSIDE RECORDS SUMMARY | 2024-03-09 16:58 | XMS_ITS | Encounter Summary ---
Author Organization [facility] Address [facility] [place] [address] Care Team Providers Care Studio Set Up Worker Name Role Phone Juan Dempsey MD Primary Care Provider [phone] Reason for Visit * Reason Comments Follow-up Encounter Details Date Type Department Care Team (Late st Contact Info) Description 10/08/2021 2:00 PM EDT Office Visit [place]ematology [place] [address] Albino Bartholomew MD [facility] DR HEMATOLOGY [place] [address] Kelin Carlos, [address] HEMATOLOGY AND ONCOLOGY [place], [place] [address] Renal cell carcinoma, unspecified laterality (Primary Dx); [...] 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 Advised pt to [...] week, then stop - CMP weekly at [facility] in 3 weeks for labs and clinic visit. The plan was discussed with the patient in details. All questions were answered to patient/ documented in this encounter Plan of Treatment Upcoming Encounters Date Type Department Care Team (Late st Contact Info) Description 03/29/2024 10:30 AM EST Laboratory Appointment Lab at [facility] Hematology Oncology [address] [place] [address] 03/29/2024 12:[address] [place] [place] [address] Albino Bartholomew MD [facility] DR HEMATOLOGY [place] [address] 04/05/2024 10:00 AM EST Office Visit [place]ematology [place] [address] Albino Bartholomew MD [facility] DR HEMATOLOGY [place] [address] Scheduled Orders Name Type Priority Associated Diagnoses [...] EST) Glucose 122 65 - 199 mg/dL [facility] Comment:Diabetes: >=200 mg/d L plus symptoms Blood Urea Nitrogen 30(H) 10 - 20 mg/dL [facility] Creatinine 1.77(H) 0.80 - 1.50 mg/dL [facility] Sodium 138 135 - 145 mmol/L [facility] Potassium 3.8 3.5 - 5.0 mmol/L [facility] Comment: Please note: ??Patients with WBC >100,000 may have falsely elevated Potassium levels. ??For accurate Potassium quantification in these patients send serum separator tube (gold top) for subsequent determinations. ??Contact the Clinical Chemistry Laboratory if there are any questions. Chloride 103 98 - 107 mmol/L [facility] Carbon Dioxide 25 22 - 31 mmol/L [facility] Anion Gap 10 5 - 15 mmol/L [facility] Calcium 9.0 8.5 - 10.5 mg/dL [facility] Protein, Total 7.0 6.1 - 8.0 g/dL [facility] Albumin 3.7 3.2 - 5.2 g/dL [facility] Aspartate Aminotransferase 50(H) 0 - 39 unit/L [facility] Alanine Aminotransferase 92(H) 0 - 55 unit/L [facility] Alkaline Phosphatase 155(H) 40 - 130 unit/L [facility] Bilirubin, Total 0.5 0.2 - 1.3 mg/dL [facility] Est Glomerular Filtration Rate 42(L) >=60 mL/min/1. 73 m?? [facility] Comment: This patient's estimated GFR was [...] MD CHEMISTRY ORDERABLES [facility] [place] [address] * (ABNORMAL) Comprehensive metabolic panel (non-fasting) (10/28/2021 9:41 AM EDT) Glucose 130 65 - 199 mg/dL [facility] Comment:Diabetes: >=200 mg/d L plus symptoms Blood Urea Nitrogen 22(H) 10 - 20 mg/dL [facility] Creatinine 1.25 0.80 - 1.50 mg/dL [facility] Sodium 139 135 - 145 mmol/L [facility] Potassium 4.1 3.5 - 5.0 mmol/L [facility] Comment: Please note: ??Patients with WBC >100,000 may have falsely elevated Potassium levels. ??For accurate Potassium quantification in these patients send serum separator tube (gold top) for subsequent determinations. ??Contact the Clinical Chemistry Laboratory if there are any questions. Chloride 105 98 - 107 mmol/L [facility] Carbon Dioxide 29 22 - 31 mmol/L [facility] Anion Gap 5 5 - 15 mmol/L [facility] Calcium 9.0 8.5 - 10.5 mg/dL [facility] Protein, Total 6.0(L) 6.1 - 8.0 g/dL [facility] Albumin 3.8 3.2 - 5.2 g/dL [facility] Aspartate Aminotransferase 44(H) 0 - 39 unit/L [facility] Alanine Aminotransferase 157(H) 0 - 55 unit/L [facility] Alkaline Phosphatase 102 40 - 130 unit/L [facility] Bilirubin, Total 0.5 0.2 - 1.3 mg/dL [facility] Est Glomerular Filtration Rate 64 >=60 mL/min/1. 73 m?? [facility] Comment: This patient's estimated [...] In Lab Albino Bartholomew MD CHEMISTRY ORDERABLES [facility] [place] [address] documented in this encounter Visit Diagnoses Diagnosis Renal cell carcinoma, unspecified laterality- Primary Elevated LFTs Other abnormal blood chemistry documented in this encounter Care Teams Studio Set Up Worker Relationship Specialty Start Date End Date Juan Dempsey MD [address] [place] [address] PCP - General Emergency Medicine 08/20/21 documented as of this encounter
--- OUTSIDE RECORDS SUMMARY | 2024-03-09 16:58 | XMS_ITS | Encounter Summary ---
Author Organization [facility] Address [facility] [place] [address] Care Team Providers Care Trimming Cutter Machine Name Role Phone Juan Dempsey MD Primary Care Provider [phone] Encounter Details Date Type Department Care Team (Late st Contact Info) Description 10/16/2021 Orders Only Urology at [facility] [place] [address] Jordan Hou MD [facility] [place] [address] Renal cell carcinoma, unspecified laterality Social History [...] at [facility] Hematology Oncology [address] [place] [address] 03/29/2024 12:[address] [place] [address] Albino Bartholomew MD [facility] DR HEMATOLOGY [place] [address] 04/05/2024 10:00 AM EST Office Visit Hematology [place] [address] Albino Bartholomew MD [facility] DR HEMATOLOGY [place] [address] documented as of this encounter Results * (ABNORMAL) Basic Metabolic Panel (non-fasting) (10/16/2021 12:08 PM EDT) [facility] Glucose 128 65 - 199 mg/dL [facility] CHEMISTRY ORDERABL ES [facility] [place] [address] documented in this encounter Visit Diagnoses Diagnosis Renal cell carcinoma, unspecified laterality documented in this encounter Care Teams Trimming Cutter Machine Relationship Specialty Start Date End Date Juan Dempsey MD [address] [place] [address] PCP - General Emergency Medicine 08/20/21 documented as of this encounter
--- OUTSIDE RECORDS SUMMARY | 2024-03-09 16:58 | XMS_ITS | Encounter Summary ---
Author Organization [facility] Address [facility] [place] [address] Care Team Providers Care Computing Consultant Name Role Phone Juan Dempsey MD Primary Care Provider [phone] Encounter Details Date Type Department Care Team (Late st Contact Info) Description 09/04/2021 Telephone Hematology [place] [address] Mary Collazo, RN Social History [...] 09/04/2021 2:45 PM EDT Message received from receptionist secretary: Triage- F/U CMP 09/04 [facility]. Pred 60 09/02-09/04. Following LFT's & BUN/Cret. Lab results received, entered into EDH & reviewed with Jennifer Carlos APRN. Per Jennifer Carlos APRN: Have pt taper prednisone to 40 mg po daily for 3 days. Repeat CMP 09/08 @ [facility]. Further prednisone taper as follows: Prednisone [...] 09/10. Pt verbalized understanding. Message sent to receptionist secretary to request order for CMP to be faxed to [facility] for 09/08. Triage nurse to f/uon results. documented in this encounter Plan of Treatment Upcoming Encounters Date Type Department Care Team (Late st Contact Info) Description 03/29/2024 10:30 AM EST Laboratory Appointment Lab at [facility] [place]ology Oncology [address] [place] [address] 03/29/2024 12:[address] [place] [phone] Albino Bartholomew MD [facility] HEMATOLOGY AND ONCOLOGY [place], [place] [id number] 04/05/2024 10:00 AM EST Office Visit Hematology [place] [phone] Albino Bartholomew MD [facility] H[place]ATOLOGY [place] [address] documented as of this encounter Procedures Procedure [...] on filedocumented in this encounter Care Teams Computing Consultant Relationship Specialty Start Date End Date Juan Dempsey MD [address] [place] [address] PCP - General Emergency Medicine 08/20/21 documented as of this encounter
--- OUTSIDE RECORDS SUMMARY | 2024-03-09 16:58 | XMS_ITS | Encounter Summary ---
Author Organization [facility] Address [facility] [place] [address] Care Team Providers Care Passenger Relations Representative Name Role Phone Juan Dempsey MD Primary Care Provider [phone] Reason for Visit * Auth/Cert Specialty Diagnoses / Procedures Referred By Contjuan t Referred To Contact Diagnoses positive cologard, screening Procedures PRO COLONOSCOPY, DIAGNOSTIC COLONOSCOPY, DIAGNOSTIC Referral ID Status Reason Start Date Expiration Date Visits Re quested Visits Authorized [id number] 1 1 Encounter Details Date Type Department Care Team (Latest Contact Info) Description 10/02/2021 1:44 PM EDT - 10/02/2021 4:25 PM EDT Hospital En[place] [address] Jordyn Merino MD [facility] [place] [address] Discharge Disposition: Home Social History Tobacco Use [...] sent through Care Everywhere. * Colonoscopy: Post-op ([place]) documented in this encounter Medications at Time [...] [facility] [place] Hematology Oncology [address] [place] [address] 03/29/2024 12:[address] [place] [place] [phone] Albino Bartholomew MD [facility] DR HEMATOLOGY [place] [address] 04/05/2024 10:00 AM EST Office Visit [place]ematology [place] [phone] Albino Bartholomew MD [facility] DR HEMATOLOGY [place] [address] documented as of this encounter Procedures Procedure Name Priority Date/Time Associated Diagnosis Comments SURGICAL PATHOLOGY REPORT Routine 10/02/2021 3:47 PM EDT SPECIMEN TO PATHOLOGY Routine 10/02/2021 3:47 PM EDT Colonoscopy, Diagnostic (41265) 10/02/2021 3:20 PM EDT positive cologard, screening COLONOSCOPY Routine 10/02/2021 3:02 PM EDT documented in this encounter Results * Surgical Pathology Report (10/02/2021 3:47 PM EDT) Final Diagnosis [id number] ? Location: 4; 13; A The signing pathologist has (i) examined the relevant preparation(s) for the specimen(s) and (ii) rendered or confirmed the diagnosis(es). . ?Surgical Pathology DIAGNOSIS A - Transverse colon polyp, resection: - ??Tubular adenoma. Electronically signed by: ?Armand CRAVEN, Renea Verified: ??10/09/2021 16:09 ??Pathologist Performed at: ??-[facility] [place] Dept. of Pathology, [place], [place] SPECIMEN(S) SUBMITTED A - Transverse colon polyp, resection (1) CLINICAL INFORMATION Screening colonoscopy SPECIMEN PROCESSING A - Labeled/Fixativ e: Transverse colon polyp, formalin. Quantity/Size: Single, 0.3 x 0.3 x 0.2 cm. Tissue Description: Partially flattened tinajero-red mucosal polyp and underlying translucent mucosal tissue. Sections/Proces sing: Submitted en toto ??in 1 cassette labeled A1. ??shb 10/09/2021 4:09 PM EDT [facility] GI Biopsy 10/02/2021 3:47 PM EDT 10/02/2021 3:47 PM EDT Jordyn Merino MD PATHOLOGY/CYTOLOGY O WILLIAM Performing Organization Address City/[facility]/ZIP Co de Phone Number [facility] [place] [address] * Specimen to Pathology (10/02/2021 3:47 PM EDT) AP Specimen 10/02/2021 3:47 PM EDT 10/02/2021 3:47 PM EDT Narrative [facility] - 10/02/2021 3:47 PM EDT Specimen requisition ordered. ??Separate Pathology report to follow Jordyn Merino MD PATHOLOGY/CYTOLOGY O WILLIAM [facility] [place] [address] * COLONOSCOPY (10/02/2021 3:02 PM EDT) COLONOSCOPY [facility] Endoscopy Procedure Date: 10/02/2021 3:02 PM ? Patient Name: Raymundo Tenorio ? Date of : 1955 ? Age: 66 ? Order #: [id number] ? Instrument Name: [id number] ? Procedure: ? Colonoscopy Indications: ? Positive [...] RN) documented in this encounter Care Teams Passenger Relations Representative Relationship Specialty Start Date End Date Juan Dempsey MD [address] [place] [address] PCP - General Emergency Medicine 08/20/21 documented as of this encounter
--- OUTSIDE RECORDS SUMMARY | 2024-03-09 16:58 | XMS_ITS | Encounter Summary ---
Author Organization [facility] Address [facility] [place] [address] Care Team Providers Care Yard Associate Name Role Phone Juan Dempsey MD Primary Care Provider [phone] Encounter Details Date Type Department Care Team (Late st Contact Info) Description 09/08/2021 Telephone Hematology [place] [address] Mary Collazo, RN Social History [...] 09/08/2021 7:21 AM EDT Follow-up: Triage: F/U [facility] 09/08 [facility]. Following LFT's. Pred taper as [...] APRN: Yes, let's have him re-check labs ([facility]) on 09/10. Would you mind pending [...] he would like to do this @ [facility] again. If labs stable plan is to taper prednisone to 10 mg po daily 09/11-09/13. Pt verbalized agreement with plan and knows to call clinic with any concerns and/or questions. Message sent to hospital secretary to request order for CMP be faxed to [facility]. Triage nurse to f/u on results. documented in this encounter Plan of Treatment Upcoming Encounters Date Type Department Care Team (Late st Contact Info) Description 03/29/2024 10:30 AM EST Laboratory Appointment Lab at [facility] Hematology Oncology [address] [place] [address] 03/29/2024 12:[address] [place] [address] Albino Bartholomew MD [facility] DR [place] [address] 04/05/2024 10:00 AM EST Office Visit Hematology [place] [address] Albino Bartholomew MD [facility] DR [place] [address] Scheduled Orders Name Type Priority Associated Diagnoses [...] chemistry documented in this encounter Care Teams Yard Associate Relationship Specialty Start Date End Date Juan Dempsey MD [address] [place] [address] PCP - General Emergency Medicine 08/20/21 documented as of this encounter
--- OUTSIDE RECORDS SUMMARY | 2024-03-09 16:58 | XMS_ITS | Encounter Summary ---
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 He verbalized understanding. 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 Should be tapering to the followinmg/day x 1 week 10mg/day x 1 week documented in this encounter Plan of Treatment Upcoming Encounters Date Type Department Care Team (Late st Contact Info) Description 03/29/2024 10:30 AM EST Laboratory Appointment Lab at [facility] Hematology Oncology [address] [place] [address] 03/29/2024 12:[address] [place] [address] Albino Bartholomew MD [facility] [place] [address] 04/05/2024 10:00 AM EST Office Visit Hematology [place] [address] Albino Bartholomew MD [facility] [place] [address] documented as of this encounter Procedures Procedure [...] on filedocumented in this encounter Care Teams Desk Editor Relationship Specialty Start Date End Date Juan Dempsey MD [address] [place] [address] PCP - General Emergency Medicine 08/20/21 documented as of this encounter
--- OUTSIDE RECORDS SUMMARY | 2024-03-09 16:58 | XMS_ITS | Encounter Summary ---
Author Organization [facility] Address [facility] [place] [address] Care Team Providers Care Oral And Maxillofacial Surgery Name Role Phone Juan Dempsey MD Primary Care Provider [phone] Encounter Details Date Type Department Care Team (Late st Contact Info) Description 10/20/2021 8:10 PM EDT Ancillary Procedure Radiology Library at [facility] [place] [address] Juan Dempsey MD [address] [place] [address] Social History Tobacco Use Types [...] [facility] Hematology Oncology [address] [place] [address] 03/29/2024 12:[address] [place] [phone] Albino Bartholomew MD [facility] DR [place] [address] 04/05/2024 10:00 AM EST Office Visit Hematology [place] [address] Albino Bartholomew MD [facility] DR [place]AT[place] [address] documented as of this encounter Procedures Procedure [...] Dempsey MD IMG FILM LIBRARY ORD ERABLES [place], [place] documented in this encounter Visit Diagnoses Not on filedocumented in this encounter Care Teams Oral And Maxillofacial Surgery Relationship Specialty Start Date End Date Juan Dempsey MD [address] [place] [address] PCP - General Emergency Medicine 08/20/21 documented as of this encounter
--- OUTSIDE RECORDS SUMMARY | 2024-03-09 16:58 | XMS_ITS | Encounter Summary ---
Author [facility] Address [facility] [place] [address] Care Team Providers Care Application Development Specialist Name Role Phone Juan Dempsey MD Primary Care Provider [phone] Encounter Details Date Type Department Care Team (Late st Contact Info) Description 10/15/2021 Telephone Hematology [place] [address] Daxa Arriola RN Social History [...] f/u on liver function and Cr at [facility] Prednisone taper weekly if LFTs are stable. 10/08-10/15 20mg/day x 1 week 10/16-10/22 10mg/day x 1 week, then stop Labs requested from clinical executive secretary. Labs not received by end of day 10/15. Clinical executive secretary states repeated request and awaiting results. Triage to follow-up on 10/16. documented in this encounter Plan of Treatment Upcoming Encounters Date Type Department Care Team (Late st Contact Info) Description 03/29/2024 10:30 AM EST Laboratory Appointment Lab [place] [facility] [place] [address] [place] [address] 03/29/2024 12:[address] [place] [place] [address] Albino Bartholomew MD [facility] DR [place] [address] 04/05/2024 10:00 AM EST Office Visit [place]ology [place] [address] Albino Bartholomew MD [facility] DR [place] [address] documented as of this encounter Visit Diagnoses Not on filedocumented in this encounter Care Teams Application Development Specialist Relationship Specialty Start Date End Date Juan Dempsey MD [address] [place] [address] PCP - General Emergency Medicine 08/20/21 documented as of this encounter
--- OUTSIDE RECORDS SUMMARY | 2024-03-09 16:58 | XMS_ITS | Encounter Summary ---
Author Organization [facility] Address [facility] [place] [address] Care Team Providers Care Speech Language Therapist Name Role Phone Juan Dempsey MD Primary Care Provider [phone] Reason for Visit * Treatment/Therapy Plan Authorization (Routine) - Closed Specialty Diagnoses / Procedures Referred By Burak t Referred To Contact Hematology and Oncology Diagnoses Renal cell carcinoma, unspecified laterality Medication management Procedures [id number] ([id number]) Albino Bartholomew MD [facility] DR [place] [address] [facility] [place] [facility] Hem Onc [address] [place] [address] Referral ID Status Reason Start Date Expiration Date Visits Re quested Visits Authorized [id number] Closed 07/30/2021 11/29/2021 99 99 Encounter Details Date Type Department Care Team (Latest Contact Info) Description 09/17/2021 12:09 PM EDT - 09/17/2021 11:59 PM EDT Hospital Encounter Hematology [place] [address] Renal cell carcinoma, unspecified laterality; [...] [facility] Hematology Oncology [address] [place] [address] 03/29/2024 12:[address] [place] [address] Albino Bartholomew MD [facility] DR [place] [address] 04/05/2024 10:00 AM EST Office Visit Hematology [place] [address] Albino Bartholomew MD [facility] [address] [place] [address] documented as of this encounter Results * T4, free (09/17/2021 12:27 PM EDT) Free T4 1.22 0.93 - 1.70 ng/dL [facility] Comment: Reference Interval (ng/dL): Females: ??First Trimester: 0.97-1.68 ??Second Trimester: 0.77-1.51 ??Third Trimester: 0.77-1.49 Blood 09/17/2021 12:2 7 PM EDT 09/17/2021 12:32 PM EDT Narrative Resulting Agency Comment Spec In Lab Kelin Doc Carlos RELIEF OPERATOR CHEMISTRY ORDERABL ES Performing Organization Address [facility] Co de Phone Number [facility] [place] [address] * TSH (09/17/2021 12:27 PM EDT) Thyroid Stimulating Hormone 2.50 0.27 - 4.20 mcIU/mL [facility] Comment: Reference Interval (mcIU/mL): Females: ??First Trimester: 0.23-3.88 ??Second Trimester: 0.22-3.90 ??Third Trimester: 0.44-4.66 Blood 09/17/2021 12:2 7 PM EDT 09/17/2021 12:32 PM EDT Narrative Resulting Agency Comment Spec In Lab Kelin Doc Carlos RELIEF OPERATOR CHEMISTRY ORDERABL ES Performing Organization Address [facility] Co de Phone Number [facility] [place] [address] * (ABNORMAL) Comprehensive metabolic panel (non-fasting) (09/17/2021 12:27 PM EDT) Glucose 78 65 - 199 mg/dL [facility] Comment:Diabetes: >=200 mg/d L plus symptoms Blood Urea Nitrogen 24(H) 10 - 20 mg/dL [facility] Creatinine 1.38 0.80 - 1.50 mg/dL [facility] Sodium 138 135 - 145 mmol/L [facility] Potassium 4.2 3.5 - 5.0 mmol/L [facility] Comment: Please note: ??Patients with WBC >100,000 may have falsely elevated Potassium levels. ??For accurate Potassium quantification in these patients send serum separator tube (gold top) for subsequent determinations. ??Contact the Clinical Chemistry Laboratory if there are any questions. Chloride 104 98 - 107 mmol/L [facility] Carbon Dioxide 23 22 - 31 mmol/L [facility] Anion Gap 11 5 - 15 mmol/L [facility] Calcium 9.1 8.5 - 10.5 mg/dL [facility] Protein, Total 6.8 6.1 - 8.0 g/dL [facility] Albumin 4.1 3.2 - 5.2 g/dL [facility] Aspartate Aminotransferase 65(H) 0 - 39 unit/L [facility] Alanine Aminotransferase 166(H) 0 - 55 unit/L [facility] Alkaline Phosphatase 131(H) 40 - 130 unit/L [facility] Bilirubin, Total 0.5 0.2 - 1.3 mg/dL [facility] Est Glomerular Filtration Rate 53(L) >=60 mL/min/1. 73 m?? [facility] [...] Lab Kelin Carlos APRN CHEMISTRY ORDERABL ES [facility] [place] [address] documented in this encounter Visit Diagnoses Diagnosis Renal cell carcinoma, unspecified laterality Medication management Encounter for long-term (current) use of other medications documented in this encounter Care Teams Speech Language Therapist Relationship Specialty Start Date End Date Juan Dempsey MD [address] [place] [address] PCP - General Emergency Medicine 08/20/21 documented as of this encounter
--- OUTSIDE RECORDS SUMMARY | 2024-03-09 16:58 | XMS_ITS | Encounter Summary ---
Author Organization [facility] Address [facility] [place] [address] Care Team Providers Care Occupational Rehabilitation Aide Name Role Phone Juan Dempsey MD Primary Care Provider [phone] Encounter Details Date Type Department Care Team (Latest Contact Info) Description 10/08/2021 12:46 PM EDT - 10/08/2021 11:59 PM EDT Hospital Encounter Hematology [place] [phone] Renal cell carcinoma, unspecified laterality; Medication management [...] [facility] Hematology Oncology [address] [place] [address] 03/29/2024 12:[address] [place] [phone] Albino Bartholomew MD [facility] [place] [address] 04/05/2024 10:00 AM EST Office Visit Hematology [place] [phone] Albino Bartholomew MD [facility] [place] [address] documented as of this encounter Procedures Procedure [...] 12:57 PM EDT) Neutrophil % 92.2 % [facility] Neutrophil Absolute 11.75(H) 1.70 - 6.10 x10(3)/mc L [facility] Lymph % 4.0 % [facility] Lymphocytes Abs 0.5(L) 0.9 - 3.2 x10(3)/mc L [facility] Monocyte % 2.7 % [facility] Monocyte Abs 0.3 0.3 - 0.9 x10(3)/[facility] Eos % 0.2 % [facility] Eosinophils Abs 0.0 0.0 - 0.4 x10(3)/[facility] Basophil % 0.3 % [facility] Baso Absolute 0.0 0.0 - 0.1 x10(3)/[facility] Immature Gran % 0.60 % [facility] Comment: Immature granulocytes(IG's)percentage and absolute count will include metamyelocytes, myelocytes, and promyelocytes. Blood smears from CBCs yielding IG's will be scanned manually for concordance. If this scan disagrees with the automated IG or if promyelocytes are noted, a manual differential will be performed. Immature Gran Absolute 0.08(H) 0.00 - 0.04 x10(3)/[facility] Blood 10/08/2021 12:5 7 PM EDT 10/08/2021 1:24 PM EDT Narrative Resulting Agency Comment Spec In Lab Sara Loza MD HEMATOLOGY ORDERABLE S [facility] [place] [address] * (ABNORMAL) Hemogram (10/08/2021 12:57 PM EDT) White Blood Cell 12.7(H) 4.0 - 9.5 x10(3)/[facility] Red Blood Cell 4.88 4.58 - 5.54 x10(6)/[facility] Hemoglobin 14.3 13.7 - 16.5 g/dL [facility] Hematocrit 42.7 40.5 - 48.5 % [facility] Mean Cell Volume 87.5 82.9 - 93.1 fL [facility] Mean Cell Hemoglobin 29.3 27.5 - 32.1 pg [facility] Mean Cell Hemoglobin Concentration 33.5 32.0 - 35.7 g/dL [facility] Platelet 160 145 - 357 x10(3)/mc L [facility] RDW Standard Deviation 48.2(H) 36.0 - 45.0 fL [facility] RDW coefficient of variation 14.9(H) 11.4 - 13.8 % [facility] Mean Platelet Volume 9.9 7.6 - 12.9 fL [facility] NRBC% auto 0.0 % [facility] NRBC Absolute 0.000 0.000 - 0.000 x10(3)/mc L [facility] Blood 10/08/2021 12:5 7 PM EDT 10/08/2021 1:24 PM EDT Narrative Resulting Agency Comment Spec In Lab Sara Loza MD HEMATOLOGY ORDERABLE S Performing Organization Address [facility] Co de Phone Number [facility] [place] [address] * TSH (10/08/2021 12:57 PM EDT) Thyroid Stimulating Hormone 1.18 0.27 - 4.20 mcIU/mL [facility] Comment: Reference Interval (mcIU/mL): Females: ??First Trimester: 0.23-3.88 ??Second Trimester: 0.22-3.90 ??Third Trimester: 0.44-4.66 Blood 10/08/2021 12:5 7 PM EDT 10/08/2021 1:24 PM EDT Narrative Resulting Agency Comment Spec In Lab Albino Bartholomew MD CHEMISTRY ORDERABLES Performing Organization Address [facility] Co de Phone Number [facility] [place] [address] * (ABNORMAL) Comprehensive metabolic panel (non-fasting) (10/08/2021 12:57 PM EDT) Glucose 134 65 - 199 mg/dL [facility] Comment:Diabetes: >=200 mg/d L plus symptoms Blood Urea Nitrogen 41(H) 10 - 20 mg/dL [facility] Creatinine 1.68(H) 0.80 - 1.50 mg/dL [facility] Sodium 137 135 - 145 mmol/L [facility] Potassium 4.8 3.5 - 5.0 mmol/L [facility] Comment: Please note: ??Patients with WBC >100,000 may have falsely elevated Potassium levels. ??For accurate Potassium quantification in these patients send serum separator tube (gold top) for subsequent determinations. ??Contact the Clinical Chemistry Laboratory if there are any questions. Chloride 102 98 - 107 mmol/L [facility] Carbon Dioxide 24 22 - 31 mmol/L [facility] Anion Gap 11 5 - 15 mmol/L [facility] Calcium 9.1 8.5 - 10.5 mg/dL [facility] Protein, Total 6.4 6.1 - 8.0 g/dL [facility] Albumin 4.0 3.2 - 5.2 g/dL [facility] Aspartate Aminotransferase 25 0 - 39 unit/L [facility] Alanine Aminotransferase 45 0 - 55 unit/L [facility] Alkaline Phosphatase 96 40 - 130 unit/L [facility] Bilirubin, Total 0.6 0.2 - 1.3 mg/dL [facility] Est Glomerular Filtration Rate 42(L) >=60 mL/min/1. 73 m?? [facility] [...] Bartholomew MD CHEMISTRY ORDERABLES Performing Organization Address City/State/[facility] Co de Phone Number [facility] [place] [address] documented in this encounter Visit Diagnoses Diagnosis Renal cell carcinoma, unspecified laterality Medication management Encounter for long-term (current) use of other medications documented in this encounter Care Teams Occupational Rehabilitation Aide Relationship Specialty Start Date End Date Juan Dempsey MD [address] [place] [address] PCP - General Emergency Medicine 08/20/21 documented as of this encounter
--- OUTSIDE RECORDS SUMMARY | 2024-03-09 16:58 | XMS_ITS | Encounter Summary ---
Author Organization [facility] Address [facility] [place] [address] Care Team Providers Care Assembler Gold Frame Name Role Phone Juan Dempsey MD Primary Care Provider Encounter Details Date Type Department Care Team (Late st Contact Info) Description 10/08/2021 Telephone Hematology [place] [address] Daxa Arriola RN Social History [...] 8:11 AM EDT Message received from clinical department secretary: litigation secretary to follow-up on prednisone taper after clinic visit on 10/08. Should be tapering to the followinmg/day x 1 week 10mg/day x 1 week Following LFT's. Currently on 40 mg daily since 10/01. Received plan for follow-up call from Dr. Bartholomew Nursing: will continue weekly CMP for f/u on liver function and Cr at [facility]. [facility] needs new standingorder as previous . Please follow Next visit in 3 week with CBC and CMP Message sent to Dr. Bartholomew requesting update on prednisone plan. 10/08-10/15 20mg/day x 1 week 10/16-10/22 10mg/day x 1 week, then stop Order pended to Kelin Carlos APRN, and clinical department secretary informed for scheduling lab with [facility].Triage to follow-up on labs and taper on 10/15. documented in this encounter Plan of Treatment Upcoming Encounters Date Type Department Care Team (Late st Contact Info) Description 03/29/2024 10:30 AM EST Laboratory Appointment Lab at [facility] Hematology Oncology [address] [place], [place] [id number] 03/29/2024 12:[address] [place] [address] Albino Bartholomew MD [facility] [address] [place] [address] 04/05/2024 10:00 AM EST Office Visit Hematology [place] [address] Albino Bartholomew MD [facility] [address] [place] [address] documented as of this encounter Visit Diagnoses Diagnosis Renal cell carcinoma, unspecified laterality Elevated LFTs Other abnormal blood chemistry documented in this encounter Care Teams Assembler Gold Frame Relationship Specialty Start Date End Date Juan Dempsey MD [address] [place] [address] PCP - General Emergency Medicine 08/20/21 documented as of this encounter
--- OUTSIDE RECORDS SUMMARY | 2024-03-09 16:58 | XMS_ITS | Encounter Summary ---
Author Organization [facility] Address [facility] [place] [address] Care Team Providers Care Fire Prevention Chief Name Role Phone Juan Dempsey MD Primary Care Provider [phone] Encounter Details Date Type Department Care Team (Latest Contact Info) Description 09/17/2021 12:08 PM EDT Hospital Encounter Hematology [place] [phone] Renal cell carcinoma, unspecified laterality; Medication management [...] [facility] Hematology Oncology [address] [place] [address] 03/29/2024 12:[address] [place] [address] Albino Bartholomew MD [facility] DR [place] [address] 04/05/2024 10:00 AM EST Office Visit Hematology [place] [phone] Albino Bartholomew MD [facility] [address] [place] [address] documented as of this encounter Procedures Procedure [...] 12:27 PM EDT) Neutrophil % 73.9 % [facility] Neutrophil Absolute 6.48(H) 1.70 - 6.10 x10(3)/mc L [facility] Lymph % 14.6 % [facility] Lymphocytes Abs 1.3 0.9 - 3.2 x10(3)/mc L [facility] Monocyte % 7.8 % [facility] Monocyte Abs 0.7 0.3 - 0.9 x10(3)/mc L [facility] Eos % 2.2 % [facility] Eosinophils Abs 0.2 0.0 - 0.4 x10(3)/[facility] Basophil % 1.0 % [facility] Baso Absolute 0.1 0.0 - 0.1 x10(3)/[facility] Immature Gran % 0.50 % [facility] Comment: Immature granulocytes(IG's)percentage and absolute count will include metamyelocytes, myelocytes, and promyelocytes. Blood smears from CBCs yielding IG's will be scanned manually for concordance. If this scan disagrees with the automated IG or if promyelocytes are noted, a manual differential will be performed. Immature Gran Absolute 0.04 0.00 - 0.04 x10(3)/[facility] Blood 09/17/2021 12:2 7 PM EDT 09/17/2021 12:32 PM EDT Narrative Resulting Agency Comment Spec In Lab Kelin aCrlos COLD HEADER HEMATOLOGY ORDERAB LES Performing Organization Address City/State/[facility] Co de Phone Number [facility] [place] [address] * (ABNORMAL) Hemogram (09/17/2021 12:27 PM EDT) White Blood Cell 8.8 4.0 - 9.5 x10(3)/[facility] Red Blood Cell 4.83 4.58 - 5.54 x10(6)/[facility] Hemoglobin 13.7 13.7 - 16.5 g/dL [facility] Hematocrit 41.6 40.5 - 48.5 % [facility] Mean Cell Volume 86.1 82.9 - 93.1 fL [facility] Mean Cell Hemoglobin 28.4 27.5 - 32.1 pg [facility] Mean Cell Hemoglobin Concentration 32.9 32.0 - 35.7 g/dL [facility] Platelet 161 145 - 357 x10(3)/mc L [facility] RDW Standard Deviation 46.8(H) 36.0 - 45.0 fL [facility] RDW coefficient of variation 14.8(H) 11.4 - 13.8 % [facility] Mean Platelet Volume 9.4 7.6 - 12.9 fL [facility] NRBC% auto 0.0 % [facility] NRBC Absolute 0.000 0.000 - 0.000 x10(3)/mc L [facility] Blood 09/17/2021 12:2 7 PM EDT 09/17/2021 12:32 PM EDT Narrative Resulting Agency Comment Spec In Lab Kelin Carlos APRN HEMATOLOGY ORDERAB LES Performing Organization Address [facility] de Phone Number [facility] [place] [address] * T4, free (09/17/2021 12:27 PM EDT) Free T4 1.22 0.93 - 1.70 ng/dL [facility] Comment: Reference Interval (ng/dL): Females: ??First Trimester: 0.97-1.68 ??Second Trimester: 0.77-1.51 ??Third Trimester: 0.77-1.49 Blood 09/17/2021 12:2 7 PM EDT 09/17/2021 12:32 PM EDT Narrative Resulting Agency Comment Spec In Lab Kelin Carlos COLD HEADER CHEMISTRY ORDERABL ES Performing Organization Address [facility] Co de Phone Number [facility] [place] [address] * TSH (09/17/2021 12:27 PM EDT) Thyroid Stimulating Hormone 2.50 0.27 - 4.20 mcIU/mL [facility] Comment: Reference Interval (mcIU/mL): Females: ??First Trimester: 0.23-3.88 ??Second Trimester: 0.22-3.90 ??Third Trimester: 0.44-4.66 Blood 09/17/2021 12:2 7 PM EDT 09/17/2021 12:32 PM EDT Narrative Resulting Agency Comment Spec In Lab Kelin Carlos COLD HEADER CHEMISTRY ORDERABL ES [facility] [place] [address] * (ABNORMAL) Comprehensive metabolic panel (non-fasting) (09/17/2021 12:27 PM EDT) Glucose 78 65 - 199 mg/dL [facility] Comment:Diabetes: >=200 mg/d L plus symptoms Blood Urea Nitrogen 24(H) 10 - 20 mg/dL [facility] Creatinine 1.38 0.80 - 1.50 mg/dL [facility] Sodium 138 135 - 145 mmol/L [facility] Potassium 4.2 3.5 - 5.0 mmol/L [facility] Comment: Please note: ??Patients with WBC >100,000 may have falsely elevated Potassium levels. ??For accurate Potassium quantification in these patients send serum separator tube (gold top) for subsequent determinations. ??Contact the Clinical Chemistry Laboratory if there are any questions. Chloride 104 98 - 107 mmol/L [facility] Carbon Dioxide 23 22 - 31 mmol/L [facility] Anion Gap 11 5 - 15 mmol/L [facility] Calcium 9.1 8.5 - 10.5 mg/dL [facility] Protein, Total 6.8 6.1 - 8.0 g/dL [facility] Albumin 4.1 3.2 - 5.2 g/dL [facility] Aspartate Aminotransferase 65(H) 0 - 39 unit/L [facility] Alanine Aminotransferase 166(H) 0 - 55 unit/L [facility] Alkaline Phosphatase 131(H) 40 - 130 unit/L [facility] Bilirubin, Total 0.5 0.2 - 1.3 mg/dL [facility] Est Glomerular Filtration Rate 53(L) >=60 mL/min/1. 73 m?? [facility] Comment: This patient? s [...] Agency Comment Spec In Lab Kelin Carlos COLD HEADER CHEMISTRY ORDERABL ES [facility] [place] [address] documented in this encounter Visit Diagnoses Diagnosis Renal cell carcinoma, unspecified laterality Medication management Encounter for long-term (current) use of other medications documented in this encounter Care Teams Fire Prevention Chief Relationship Specialty Start Date End Date Juan Dempsey MD [address] [place] [address] PCP - General Emergency Medicine 08/20/21 documented as of this encounter
--- OUTSIDE RECORDS SUMMARY | 2024-03-09 16:58 | XMS_ITS | Encounter Summary ---
Author Organization [facility] Address [facility] [place] [address] Care Team Providers Care Trials Manager Name Role Phone Juan Dempsey MD Primary Care Provider [phone] Encounter Details Date Type Department Care Team (Late st Contact Info) Description 10/20/2021 Telephone Hematology [place] [address] Daxa Arriola RN Social History [...] 10:41 AM EDT Message received from clinical confidential secretary: [phone] Reports 100.8 fever last night, down to [...] no change to range of motion or patient support partner, joints in hands are slightly sore. Left [...] to nearest ED for evaluation. Pt at [facility] ED for doppler as advised by PCP. documented in this encounter Plan of Treatment Upcoming Encounters Date Type Department Care Team (Late st Contact Info) Description 03/29/2024 10:30 AM EST Laboratory Appointment Lab at [place] Hematology Oncology [address] [place] [address] 03/29/2024 12:[address] [place] [address] Albino Bartholomew MD [facility] DR [place] [address] 04/05/2024 10:00 AM EST Office Visit Hematology [place] [address] Albino Bartholomew MD [facility] DR [place] [address] documented as of this encounter Visit Diagnoses Not on filedocumented in this encounter Care Teams Trials Manager Relationship Specialty Start Date End Date Juan Dempsey MD [address] [place] [address] PCP - General Emergency Medicine 08/20/21 documented as of this encounter
--- OUTSIDE RECORDS SUMMARY | 2024-03-09 16:58 | XMS_ITS | Encounter Summary ---
Author Organization [facility] Address [facility] [place] [address] Care Team Providers Care Orthopedic Shoe Fitter Name Role Phone Juan Dempsey MD Primary Care Provider [phone] Encounter Details Date Type Department Care Team (Late st Contact Info) Description 10/17/2021 Telephone Hematology [place] [phone] [facility] DR HEMATOLOGY/[place] [address] Social History Tobacco Use Types Packs/Day Years [...] Hematology/Medical Oncology Fellow [facility] at [facility] Page # [phone] 10/17/21, 6:26 AM documented in this encounter Plan of Treatment Upcoming Encounters Date Type Department Care Team (Late st Contact Info) Description 03/29/2024 10:30 AM EST Laboratory Appointment Lab at [facility] Hematology Oncology [address] [place] [address] 03/29/2024 12:[address] [place] [address] [facility] [place] [address] 04/05/2024 10:00 AM EST Office Visit Hematology [place] [address] [facility] [address] [place] [address] documented as of this encounter Visit Diagnoses Not on filedocumented in this encounter Care Teams Orthopedic Shoe Fitter Relationship Specialty Start Date End Date Juan Dempsey MD [address] [place] [address] PCP - General Emergency Medicine 08/20/21 documented as of this encounter
--- OUTSIDE RECORDS SUMMARY | 2024-03-09 16:58 | XMS_ITS | Encounter Summary ---
Author Organization [facility] Address [facility] [place] [address] Care Team Providers Care Hostel Manager Name Role Phone Juan Dempsey MD Primary Care Provider [phone] Encounter Details Date Type Department Care Team (Late st Contact Info) Description 10/23/2021 Telephone Hematology [place] [address] Daxa Arriola RN Social History [...] 8:56 AM EDT Message received from clinical corporate secretary: [phone] - patient called - had bloodwork done [...] pt. Pt advised to call office at [phone] with any worsening symptoms or concerns. Pt in agreementwith plan. documented in this encounter Plan of Treatment Upcoming Encounters Date Type Department Care Team (Late st Contact Info) Description 03/29/2024 10:30 AM EST Laboratory Appointment Lab at [facility] [place]ematology Oncology [address] [place] [address] 03/29/2024 12:[address] [place] [place] [address] Albino Bartholomew MD [facility] DR [place] [address] 04/05/2024 10:00 AM EST Office Visit [place]ematology [place] [address] Albino Bartholomew MD [facility] DR [place] [address] documented as of this encounter Visit Diagnoses Not on filedocumented in this encounter Care Teams Hostel Manager Relationship Specialty Start Date End Date Juan Dempsey MD [address] [place] [address] PCP - General Emergency Medicine 08/20/21 documented as of this encounter
--- OUTSIDE RECORDS SUMMARY | 2024-03-09 16:58 | XMS_ITS | Encounter Summary ---
Author Organization [facility] Address [facility] [place] [address] Care Team Providers Care Brewery Representative Name Role Phone Juan Dempsey MD Primary Care Provider [phone] Encounter Details Date Type Department Care Team (Late st Contact Info) Description 10/20/2021 Telephone Hematology [place] [phone] Aleksandra Wells MD [facility] DR HEMATOLOGY/[place] [address] Social History Tobacco Use Types Packs/Day Years [...] 10/20/2021 5:30 PM EDT Reason for call: [facility] [place] calling for consult Re: fever and [...] and swelling. He presented today to the [facility] [place]. In ER he is afebrile, VSS. [...] Aleksandra Wells MD, MS Hematology/Medical Oncology Fellow [facility] at [facility] Page # [phone] 10/20/21, 6:03 PM documented in this encounter Plan of Treatment Upcoming Encounters Date Type Department Care Team (Late st Contact Info) Description 03/29/2024 10:30 AM EST Laboratory Appointment Lab at [facility] [place]ology Oncology [address] [place] [address] 03/29/2024 12:[address] [place] [address] Albino Bartholomew MD [facility] [place] [address] 04/05/2024 10:00 AM EST Office Visit Hematology [place] [address] Albino Bartholomew MD [facility] [place] [address] documented as of this encounter Visit Diagnoses Not on filedocumented in this encounter Care Teams Brewery Representative Relationship Specialty Start Date End Date Juan Dempsey MD [address] [place] [address] PCP - General Emergency Medicine 08/20/21 documented as of this encounter
--- OUTSIDE RECORDS SUMMARY | 2024-03-09 16:58 | XMS_ITS | Encounter Summary ---
Author Organization [facility] Address [place] [address] Care Team Providers Care Machine Clipper Name Role Phone Juan Dempsey MD Primary Care Provider [phone] Encounter Details Date Type Department Care Team (Late st Contact Info) Description 09/17/2021 1:30 PM EDT Office Visit H[place] [phone] Albino Bartholomew MD [facility] [address] HEMATOLOGY [place] [address] [address] HEMATOLOGY AND ONCOLOGY [place], [place] [address] Sara Loza MD [facility] [address] HEMATOLOGY [place] [address] Renal cell carcinoma, unspecified laterality; Elevated LFTs; [...] from the original note were not included. [facility] Oncology - Follow Up Visit History of Present Illness: Mr. Tenoiro is a 66 y.o. 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 Pt prefers to get labs at [facility]. We'll send orders and I'll ask our wire mill operator to f/u on results. Advised pt [...] while on prednisone - CMP weekly at [facility] 10/08/21 for labs and clinic visit. CMP weekly at [facility] Sara Loza MD Hematology/Oncology Fellow Pager [phone] 09/17/21 Oncology Attending Addendum I personally reviewed the history, examined the patient, reviewed relevant labs and viewed recent radiographic images. I directly participated in management decisions. My exam and assessment concur with . Please refer to her comprehensive note for details. Albino Bartholomew MD Hematology/Oncology Section, [facility] Fruit Buying Graderhogshead stock clerk, [employer] [phone] documented in this encounter Plan of Treatment Upcoming Encounters Date Type Department Care Team (Late st Contact Info) Description 03/29/2024 10:30 AM EST Laboratory Appointment Lab at [facility] Hematology Oncology [address] [place] [address] 03/29/2024 12:[address] [place] [address] Albino Bartholomew MD [facility] [address] HEMATOLOGY [place] [address] 04/05/2024 10:00 AM EST Office Visit [place]ology [place] [phone] Albino Bartholomew MD [facility] [address] HEMATOLOGY [place] [address] documented as of this encounter Results * TSH (10/08/2021 12:57 PM EDT) [facility] Thyroid Stimulating Hormone 1.18 0.27 - 4.20 mcIU/mL [facility] Comment: Reference Interval (mcIU/mL): Females: ??First Trimester: 0.23-3.88 ??Second Trimester: 0.22-3.90 ??Third Trimester: 0.44-4.66 Blood 10/08/2021 12:5 7 PM EDT 10/08/2021 1:24 PM EDT Narrative Resulting Agency Comment Spec In Lab Albino Bartholomew MD CHEMISTRY ORDERABLES [facility] [place] [address] * (ABNORMAL) Comprehensive metabolic panel (non-fasting) (10/08/2021 12:57 PM EDT) [facility] Glucose 134 65 - 199 mg/dL [facility] Comment:Diabetes: >=200 mg/d L plus symptoms Blood Urea Nitrogen 41(H) 10 - 20 mg/dL [facility] Creatinine 1.68(H) 0.80 - 1.50 mg/dL [facility] Sodium 137 135 - 145 mmol/L [facility] Potassium 4.8 3.5 - 5.0 mmol/L [facility] Comment: Please note: ??Patients with WBC >100,000 may have falsely elevated Potassium levels. ??For accurate Potassium quantification in these patients send serum separator tube (gold top) for subsequent determinations. ??Contact the Clinical Chemistry Laboratory if there are any questions. Chloride 102 98 - 107 mmol/L [facility] Carbon Dioxide 24 22 - 31 mmol/L [facility] Anion Gap 11 5 - 15 mmol/L [facility] Calcium 9.1 8.5 - 10.5 mg/dL [facility] Protein, Total 6.4 6.1 - 8.0 g/dL [facility] Albumin 4.0 3.2 - 5.2 g/dL [facility] Aspartate Aminotransferase 25 0 - 39 unit/L [facility] Alanine Aminotransferase 45 0 - 55 unit/L [facility] Alkaline Phosphatase 96 40 - 130 unit/L [facility] Bilirubin, Total 0.6 0.2 - 1.3 mg/dL [facility] Est Glomerular Filtration Rate 42(L) >=60 mL/min/1. 73 m?? [facility] [...] MD CHEMISTRY ORDERABLES [facility] [place] [id number] documented in this encounter Visit Diagnoses Diagnosis Renal cell carcinoma, unspecified laterality Elevated LFTs Other abnormal blood chemistry Medication management Encounter for long-term (current) use of other medications documented in this encounter Care Teams Machine Clipper Relationship Specialty Start Date End Date Juan Dempsey MD [address] [place] [address] PCP - General Emergency Medicine 08/20/21 documented as of this encounter
--- OUTSIDE RECORDS SUMMARY | 2024-03-09 16:58 | XMS_ITS | Encounter Summary ---
Author Organization [facility]ly [facility] Address [facility] [place] [address] Care Team Providers Care Pathologist Assistant Name Role Phone Juan Dempsey MD Primary Care Provider [phone] Encounter Details Date Type Department Care Team (Late st Contact Info) Description 09/11/2021 External Results Hematology [place] [phone] Galina Coello Social History Tobacco Use Types [...] [facility] Hemat[facility] Oncology [address] [place] [address] 03/29/2024 12:[address] [place] [address] Albino Bartholomew MD [facility] DR [place] [address] 04/05/2024 10:00 AM EST Office Visit Hematology [place] [address] Albino Bartholomew MD [facility] DR [place] [address] documented as of this encounter Procedures Procedure [...] on filedocumented in this encounter Care Teams Pathologist Assistant Relationship Specialty Start Date End Date Juan Dempsey MD [address] [place] [address] PCP - General Emergency Medicine 08/20/21 documented as of this encounter
--- OUTSIDE RECORDS SUMMARY | 2024-03-09 16:58 | XMS_ITS | Encounter Summary ---
Author Organization [facility] [place] [address] Care Team Providers Care Adjuster And Inspector Name Role Phone Juan Dempsey MD Primary Care Provider [phone] Encounter Details Date Type Department Care Team (Latest Contact Info) Description 10/16/2021 12:15 PM EDT Laboratory Appointment Lab [address] [place] [address] Renal cell carcinoma, unspecified laterality [...] [facility] [place] [address] [place] [address] 03/29/2024 12:[address] [place] [address] Albino Bartholomew MD [facility] [address] [place] [address] 04/05/2024 10:00 AM EST Office Visit Hematology [place] [address] Albino Bartholomew MD [facility] [address] [place] [address] documented as of this encounter Procedures Procedure Name Priority Date/Time Associated Diagnosis Comments HC VENIPUNCTURE STAT 10/16/2021 12:08 PM EDT Renal cell carcinoma, unspecified laterality documented in this encounter Results * (ABNORMAL) Basic Metabolic Panel (non-fasting) (10/16/2021 12:08 PM EDT) Glucose 128 65 - 199 mg/dL [facility] Comment:Diabetes: >=200 mg/d L plus symptoms Blood Urea Nitrogen 25(H) 10 - 20 mg/dL [facility] Creatinine 1.62(H) 0.80 - 1.50 mg/dL [facility] Sodium 136 135 - 145 mmol/L [facility] Potassium 4.7 3.5 - 5.0 mmol/L [facility] Comment: Please note: ??Patients with WBC >100,000 may have falsely elevated Potassium levels. ??For accurate Potassium quantification in these patients send serum separator tube (gold top) for subsequent determinations. ??Contact the Clinical Chemistry Laboratory if there are any questions. Chloride 101 98 - 107 mmol/L [facility] Carbon Dioxide 25 22 - 31 mmol/L [facility] Anion Gap 10 5 - 15 mmol/L [facility] Calcium 8.7 8.5 - 10.5 mg/dL [facility] Est Glomerular Filtration Rate 47(L) >=60 mL/min/1. 73 m?? [facility] [...] Lab Jordan Hou MD CHEMISTRY ORDERABL ES [facility] [place] [address] documented in this encounter Visit Diagnoses Diagnosis Renal cell carcinoma, unspecified laterality documented in this encounter Care Teams Adjuster And Inspector Relationship Specialty Start Date End Date Juan Dempsey MD [address] [place] [address] PCP - General Emergency Medicine 08/20/21 documented as of this encounter
--- OUTSIDE RECORDS SUMMARY | 2024-03-09 16:58 | XMS_ITS | Encounter Summary ---
Author Organization [facility] Address [facility] [place] [address] Care Team Providers Care Tumbler Drier Operator Name Role Phone Juan Dempsey MD Primary Care Provider [phone] Encounter Details Date Type Department Care Team (Late st Contact Info) Description 09/17/2021 Orders Only Hematology [place] [phone] Albino Bartholomew MD [facility] [address] [place] [address] Social History Tobacco Use Types Packs/Day Years [facility] [address] [place] [address] 03/29/2024 12:[address] [place] [phone] Albino Bartholomew MD [facility] [address] HEM[place]Y [place] [address] 04/05/2024 10:00 AM EST Office Visit Hematology [place] [address] Albino Bartholomew MD [facility] [address] [place]EMATOLOGY [place] [address] documented as of this encounter Visit Diagnoses Not on filedocumented in this encounter Care Teams Tumbler Drier Operator Relationship Specialty Start Date End Date Juan Dempsey MD [address] [place] [address] PCP - General Emergency Medicine 08/20/21 documented as of this encounter
--- OUTSIDE RECORDS SUMMARY | 2024-03-09 16:58 | XMS_ITS | Encounter Summary ---
Author Organization [facility] Address [facility] [place] [address] Care Team Providers Care Food Beverage Attendant Name Role Phone Juan Dempsey MD Primary Care Provider [phone] Encounter Details Date Type Department Care Team (Late st Contact Info) Description 09/01/2021 Telephone Hematology [place] [address] Mary Collazo, RN Social History [...] RN - 09/01/2021 7:26 AM EDT Follow-up: [facility] 09/01 [facility]. Following LFT's. 100 mg/day x 3 days [...] days (09/02- 09/04). Repeat CMP 09/04 @ [facility] & triage nurse willf/u on results. Reinforced to pt to continue to push po fluids. Pt verbalized agreement with plan and knows to call clinic with any concerns and/or questions. Message sent to medical office secretary to request order for CMP to be faxed to [facility] for 09/04. documented in this encounter Plan of Treatment Upcoming Encounters Date Type Department Care Team (Late st Contact Info) Description 03/29/2024 10:30 AM EST Laboratory Appointment Lab at [facility] Hematology Oncology [address] [place] [address] 03/29/2024 12:[address] [place] [address] Albino Bartholomew MD [facility] DR [place] [address] 04/05/2024 10:00 AM EST Office Visit Hematology [place] [phone] Albino Bartholomew MD [facility] DR [place] [address] documented as of this encounter Procedures Procedure [...] Agency Comment Spec In Lab Kelin Carlos DRYING RACK CHANGER CHEMISTRY ORDERABL ES [facility] [address] [place] [address] * (ABNORMAL) Comprehensive metabolic panel (non-fasting) (09/01/2021 [...] chemistry documented in this encounter Care Teams Food Beverage Attendant Relationship Specialty Start Date End Date Juan Dempsey MD [address] [place] [address] PCP - General Emergency Medicine 08/20/21 documented as of this encounter
--- OUTSIDE RECORDS SUMMARY | 2024-03-09 16:58 | XMS_ITS | Encounter Summary ---
Author Organization [facility] Address [facility] [place] [address] Care Team Providers Care Septic Cleaner Name Role Phone Juan Dempsey MD Primary Care Provider [phone] Reason for Visit * Auth/Cert Specialty Diagnoses / Procedures Referred By Contjuan t Referred To Contact Diagnoses positive cologard, screening Procedures PRO COLONOSCOPY, DIAGNOSTIC COLONOSCOPY, DIAGNOSTIC Referral ID Status Reason Start Date Expiration Date Visits Re quested Visits Authorized [id number] 1 1 Encounter Details Date Type Department Care Team (Late st Contact Info) Description 10/02/2021 3:00 PM EDT - 10/02/2021 3:45 PM EDT [place] [address] Jordyn Merino MD [facility] [place] [address] COLONOSCOPY, DIAGNOSTIC (WRVU 3.26) Social History Tobacco [...] sent through Care Everywhere. * Colonoscopy: Post-op (Icelandic) documented in this encounter Medications at Time [...] [facility] H[facility] Oncology [address] [place] [address] 03/29/2024 12:[address] [place] [address] Albino Bartholomew MD [facility] [place] [address] 04/05/2024 10:00 AM EST Office Visit Hematology [place] [phone] Albino Bartholomew MD [facility] [place] [address] documented as of this encounter Procedures Procedure Name Priority Date/Time Associated Diagnosis Comments SURGICAL PATHOLOGY REPORT Routine 10/02/2021 3:47 PM EDT SPECIMEN TO PATHOLOGY Routine 10/02/2021 3:47 PM EDT Colonoscopy, Diagnostic (85323) 10/02/2021 3:20 PM EDT positive cologard, screening COLONOSCOPY Routine 10/02/2021 3:02 PM EDT documented in this encounter Results * Surgical Pathology Report (10/02/2021 3:47 PM EDT) Final Diagnosis [id number] ? Location: 4T; EA13; A The signing pathologist has (i) examined the relevant preparation(s) for the specimen(s) and (ii) rendered or confirmed the diagnosis(es). . ?Surgical Pathology DIAGNOSIS A - Transverse colon polyp, resection: - ??Tubular adenoma. Electronically signed by: ?Renea Acuna MD Verified: ??10/09/2021 16:09 ??Pathologist Performed at: ??-[facility] Dept. of Pathology, [place], [place] SPECIMEN(S) SUBMITTED A - Transverse colon polyp, resection (1) CLINICAL INFORMATION Screening colonoscopy SPECIMEN PROCESSING A - Labeled/Fixativ e: Transverse colon polyp, formalin. Quantity/Size: Single, 0.3 x 0.3 x 0.2 cm. Tissue Description: Partially flattened tinajero-red mucosal polyp and underlying translucent mucosal tissue. Sections/Proces sing: Submitted en toto ??in 1 cassette labeled A1. ??shb 10/09/2021 4:09 PM EDT [facility] GI Biopsy 10/02/2021 3:47 PM EDT 10/02/2021 3:47 PM EDT Jordyn Meirno MD PATHOLOGY/CYTOLOGY O WILLIAM Performing Organization Address [facility] Co de Phone Number [facility] [place] [address] * Specimen to Pathology (10/02/2021 3:47 PM EDT) AP Specimen 10/02/2021 3:47 PM EDT 10/02/2021 3:47 PM EDT Narrative [facility] - 10/02/2021 3:47 PM EDT Specimen requisition ordered. ??Separate Pathology report to follow Jordyn Merino MD PATHOLOGY/CYTOLOGY O WILLIAM Performing Organization Address City/[facility]/ZIP Co de Phone Number [facility] [place] [address] * COLONOSCOPY (10/02/2021 3:02 PM EDT) COLONOSCOPY [facility] Endoscopy Procedure Date: 10/02/2021 3:02 PM ? Patient Name: Raymundo Tenorio ? Date of : 1955 ? Age: 66 ? Order #: [id number] ? Instrument Name: [id number] ? Procedure: ? Colonoscopy Indications: ? Positive [...] Starting on Yuliet 10/02/21 at 1520, Until Yluiet 10/02/21 at 1835, Intra-Operative (Intra-Procedure), Routine 1520 [...] RN) documented in this encounter Care Teams Septic Cleaner Relationship Specialty Start Date End Date Juan Dempsey MD [address] [place] [address] PCP - General Emergency Medicine 08/20/21 documented as of this encounter
--- OUTSIDE RECORDS SUMMARY | 2024-03-09 16:59 | XMS_ITS | Encounter Summary ---
Author Organization [facility] Address [facility] [place] [address] Care Team Providers Care Emotional Disabilities Teacher Name Role Phone Juan Dempsey MD Primary Care Provider [phone] Encounter Details Date Type Department Care Team (Latest Contact Info) Description 08/27/2021 12:06 PM EDT - 08/27/2021 11:59 PM EDT Hospital Encounter [place]ology [place] [phone] Renal cell carcinoma, unspecified laterality; Medication management [...] [facility] Hematology Oncology [address] [place] [address] 03/29/2024 12:[address] [place] [place] [address] Albino Bartholomew MD [facility] HEMATOLOGY [place] [address] 04/05/2024 10:00 AM EST Office Visit Hematology and Oncology at [facility] [place] [address] Albino Bartholomew MD [facility] [place] [address] documented as of this encounter Procedures Procedure [...] 12:16 PM EDT) Neutrophil % 60.2 % [facility] Neutrophil Absolute 3.65 1.70 - 6.10 x10(3)/[facility] Lymph % 24.1 % [facility] Lymphocytes Abs 1.5 0.9 - 3.2 x10(3)/[facility] Monocyte % 10.9 % [facility] Monocyte Abs 0.7 0.3 - 0.9 x10(3)/[facility] Eos % 3.6 % [facility] Eosinophils Abs 0.2 0.0 - 0.4 x10(3)/[facility] Basophil % 1.0 % [facility] Baso Absolute 0.1 0.0 - 0.1 x10(3)/[facility] Immature Gran % 0.20 % [facility] Comment: Immature granulocytes(IG's)percentage and absolute count will include metamyelocytes, myelocytes, and promyelocytes. Blood smears from CBCs yielding IG's will be scanned manually for concordance. If this scan disagrees with the automated IG or if promyelocytes are noted, a manual differential will be performed. Immature Gran Absolute 0.01 0.00 - 0.04 x10(3)/[facility] Blood 08/27/2021 12:1 6 PM EDT 08/27/2021 12:26 PM EDT Narrative Resulting Agency Comment Spec In Lab Kelin Carlos APRN HEMATOLOGY ORDERAB LES [facility] [place] [address] * (ABNORMAL) Hemogram (08/27/2021 12:16 PM EDT) White Blood Cell 6.1 4.0 - 9.5 x10(3)/mc L [facility] Red Blood Cell 4.54(L) 4.58 - 5.54 x10(6)/mc L [facility] Hemoglobin 13.0(L) 13.7 - 16.5 g/dL [facility] Hematocrit 39.7(L) 40.5 - 48.5 % [facility] Mean Cell Volume 87.4 82.9 - 93.1 fL [facility] Mean Cell Hemoglobin 28.6 27.5 - 32.1 pg [facility] Mean Cell Hemoglobin Concentration 32.7 32.0 - 35.7 g/dL [facility] Platelet 187 145 - 357 x10(3)/mc L [facility] RDW Standard Deviation 45.5(H) 36.0 - 45.0 fL [facility] RDW coefficient of variation 14.1(H) 11.4 - 13.8 % [facility] Mean Platelet Volume 9.4 7.6 - 12.9 fL [facility] NRBC% auto 0.0 % [facility] NRBC Absolute 0.000 0.000 - 0.000 x10(3)/mc L [facility] Blood 08/27/2021 12:1 6 PM EDT 08/27/2021 12:26 PM EDT Narrative Resulting Agency Comment Spec In Lab Kelin Carlos APRN HEMATOLOGY ORDERAB LES Performing Organization Address City/[facility]/ZIP Co de Phone Number [facility] [place] [address] * T4, free (08/27/2021 12:16 PM EDT) [facility] Free T4 1.19 0.93 - 1.70 ng/dL [facility] Comment: Reference Interval (ng/dL): Females: ??First Trimester: 0.97-1.68 ??Second Trimester: 0.77-1.51 ??Third Trimester: 0.77-1.49 Blood 08/27/2021 12:1 6 PM EDT 08/27/2021 12:26 PM EDT Narrative Resulting Agency Comment Spec In Lab Kelin Carlos APRN CHEMISTRY ORDERABL ES Performing Organization Address City/[facility]/ZIP Co de Phone Number [facility] [place] [address] * TSH (08/27/2021 12:16 PM EDT) Thyroid Stimulating Hormone 3.83 0.27 - 4.20 mcIU/mL [facility] Comment: Reference Interval (mcIU/mL): Females: ??First Trimester: 0.23-3.88 ??Second Trimester: 0.22-3.90 ??Third Trimester: 0.44-4.66 Blood 08/27/2021 12:1 6 PM EDT 08/27/2021 12:26 PM EDT Narrative Resulting Agency Comment Spec In Lab Kelin Carlos FLAT FINISHER CHEMISTRY ORDERABL ES [facility] [place] [address] * (ABNORMAL) Comprehensive metabolic panel (non-fasting) (08/27/2021 12:16 PM EDT) Pathologist [facility] Glucose 115 65 - 199 mg/dL [facility] Comment:Diabetes: >=200 mg/d L plus symptoms Blood Urea Nitrogen 28(H) 10 - 20 mg/dL [facility] Creatinine 1.67(H) 0.80 - 1.50 mg/dL [facility] Sodium 139 135 - 145 mmol/L [facility] Potassium 4.7 3.5 - 5.0 mmol/L [facility] Comment: Please note: ??Patients with WBC >100,000 may have falsely elevated Potassium levels. ??For accurate Potassium quantification in these patients send serum separator tube (gold top) for subsequent determinations. ??Contact the Clinical Chemistry Laboratory if there are any questions. Chloride 104 98 - 107 mmol/L [facility] Carbon Dioxide 26 22 - 31 mmol/L [facility] Anion Gap 9 5 - 15 mmol/L [facility] Calcium 9.5 8.5 - 10.5 mg/dL [facility] Protein, Total 7.4 6.1 - 8.0 g/dL [facility] Albumin 4.4 3.2 - 5.2 g/dL [facility] Aspartate Aminotransferase 308(H) 0 - 39 unit/L [facility] Alanine Aminotransferase 707(H) 0 - 55 unit/L [facility] Alkaline Phosphatase 198(H) 40 - 130 unit/L [facility] [...] CHEMISTRY ORDERABL ES [facility] [place] [address] documented in this encounter Visit Diagnoses Diagnosis Renal cell carcinoma, unspecified laterality Medication management Encounter for long-term (current) use of other medications documented in this encounter Care Teams Emotional Disabilities Teacher Relationship Specialty Start Date End Date Juan Dempsey MD [address] [place] [address] PCP - General Emergency Medicine 08/20/21 documented as of this encounter
--- OUTSIDE RECORDS SUMMARY | 2024-03-09 16:59 | XMS_ITS | Encounter Summary ---
Author Organization [facility] Address [facility] [place] [address] Care Team Providers Care Wire Rope Fabrication Supervisor Name Role Phone Lisbet Solitario MD Primary Care Provider [phone] Reason for Referral * Consultation (Routine) - Closed Specialty Diagnoses / Procedures Referred By Burak mcnair Referred To Contact Hematology and Oncology Diagnoses Renal cell carcinoma, unspecified laterality Jordan Hou MD [facility] [place] [address] [facility] [address] [place] [address] Referral ID Status Reason Start Date Expiration Date V isits Requested Visits Authorized [id number] Closed Consult, Test & Treat 07/07/2021 07/07/2022 1 1 Reason for Visit * Reason Comments Kidney Cancer Follow-up Encounter Details Date Type Department Care Team (Late st Contact Info) Description 07/07/2021 10:00 AM [place] [address] Jordan Hou MD [facility] [place] [address] Renal cell carcinoma, unspecified laterality [...] 2.23) performed by Jordan Hou MD at [facility] MAIN OR ??? PRO REMV KIDNEY, RADICAL Left 06/23/2021 @NEPHRECTOMY, RADICAL W\REG LYMPHADENECTOMY &\OR VENA CAVA THROMBECTOMY (WRVU 23.81) performed by Jordan Hou MD at [facility] MAIN OR Social History Socioeconomic History ??? 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 DR [place] [address] 04/05/2024 10:00 AM EST Office Visit [place] [address] Albino Bartholomew MD [facility] DR [place] [address] Scheduled Referrals Name Type Priority Associated Diagnoses Order Schedule Referral to Genitourinary Oncology Outpatient Referral Routine Renal cell carcinoma, unspecified laterality Ordered: 07/07/2021 documented as of this encounter Visit Diagnoses Diagnosis Renal cell carcinoma, unspecified laterality documented in this encounter Care Teams Wire Rope Fabrication Supervisor Relationship Specialty Start Date End Date Lisbet Solitario MD [address] [place] [address] PCP - General Family Medicine 01/30/16 08/19/21 documented as of this encounter
--- OUTSIDE RECORDS SUMMARY | 2024-03-09 16:59 | XMS_ITS | Encounter Summary ---
Author Organization [facility] Address [facility] [place] [address] Care Team Providers Care Tapper Operator Name Role Phone Juan Dempsey MD Primary Care Provider [phone] Encounter Details Date Type Department Care Team (Late st Contact Info) Description 08/29/2021 Orders Only [place]ematology [place] [address] Kelin Carlos, INSTRUMENT INSTALLER [address] [place] [address] DR HEMATOLOGY AND ONCOLOGY [place], [place] [id number] Elevated LFTs Social History Tobacco Use Types [...] [facility] Hematology Oncology [address] [place] [address] 03/29/2024 12:[address] [place] [place] [address] Albino Bartholomew MD [facility] DR HEMATOLOGY [place] [address] 04/05/2024 10:00 AM EST Office Visit [place]ology [place] [address] Albino Bartholomew MD [facility] DR HEMATOLOGY [place] [address] documented as of this encounter Visit Diagnoses Diagnosis Elevated LFTs Other abnormal blood chemistry documented in this encounter Care Teams Tapper Operator Relationship Specialty Start Date End Date Juan Dempsey MD [address] [place] [address] PCP - General Emergency Medicine 08/20/21 documented as of this encounter
--- OUTSIDE RECORDS SUMMARY | 2024-03-09 16:59 | XMS_ITS | Encounter Summary ---
Author Organization [facility] Address [facility] [place] [address] Care Team Providers Care Bias Machine Operator Helper Name Role Phone Juan Dempsey MD Primary Care Provider [phone] Encounter Details Date Type Department Care Team (Late st Contact Info) Description 08/29/2021 Telephone Urology at [facility] [place] [address] Jordan Hou MD [facility] [place] [address] Social History Tobacco Use Types Packs/Day Years [...] [facility] Hemat[facility] Oncology [address] [place] [address] 03/29/2024 12:[address] [place] [address] Albino Bartholomew MD [facility] HEMATOLOGY [place] [address] 04/05/2024 10:00 AM EST Office Visit Hematology [place] [address] Albino Bartholomew MD [facility] DR HEMATOLOGY [place] [address] documented as of this encounter Visit Diagnoses Not on filedocumented in this encounter Care Teams Bias Machine Operator Helper Relationship Specialty Start Date End Date Juan Dempsey MD [address] [place] [address] PCP - General Emergency Medicine 08/20/21 documented as of this encounter
--- OUTSIDE RECORDS SUMMARY | 2024-03-09 16:59 | XMS_ITS | Encounter Summary ---
Author Organization formerly [place] [address] Care Team Providers Care Circuit Board Drafter Name Role Phone Lisbet Solitario MD Primary Care Provider [phone] Reason for Visit * Reason Onset Date Comments Error 08/11/2021 Encounter Details Date Type Department Care Team (Late st Contact Info) Description 08/11/2021 Telephone Hematology [place] [address] Noemí Barba, RN Error Social [...] [facility] Hematology Oncology [address] [place] [address] 03/29/2024 12:[address] [place] [address] Albino Bartholomew MD [facility] DR [place]AT[place] [address] 04/05/2024 10:00 AM EST Office Visit Hematology [place] [address] Albino Bartholomew MD [facility] DR [place]OLOG[place] [address] documented as of this encounter Visit Diagnoses Not on filedocumented in this encounter Care Teams Circuit Board Drafter Relationship Specialty Start Date End Date Lisbet Solitario MD [address] [place] [address] PCP - General Family Medicine 01/30/16 08/19/21 documented as of this encounter
--- OUTSIDE RECORDS SUMMARY | 2024-03-09 16:59 | XMS_ITS | Encounter Summary ---
Author Organization [facility] Address [facility] [place] [address] Care Team Providers Care Parachute Repairer Name Role Phone Juan Dempsey MD Primary Care Provider [phone] Encounter Details Date Type Department Care Team (Late st Contact Info) Description 08/29/2021 Telephone [place]ematology [place] [address] Mary Collazo, RN Social History [...] 100 mg/day today. Needs torepeat CMP at [facility] on Wednesday am (external orders in). Daxa, [...] to provider to review. Per Jennifer Carlos, LUGGAGE LINER: Some improvement on LFTs - let's taper to 80 mg/day x 3 days (Sat, Wed, Wed) and repeat CMP on Wednesday at [facility]. I'll put in order now. Also, please [...] day. He will have labs 09/01 @ [facility]. Triage nurse to f/u on results & [...] [facility] [place] On[facility] [address] [place] [address] 03/29/2024 12:[address] [place] [place] [address] Albino Bartholomew MD [facility] DR [place] [address] 04/05/2024 10:00 AM EST Office Visit [place]ematology [place] [address] Albino Bartholomew MD [facility] DR [place] [address] documented as of this encounter Procedures Procedure [...] on filedocumented in this encounter Care Teams Parachute Repairer Relationship Specialty Start Date End Date Juan Dempsey MD [address] [place] [address] PCP - General Emergency Medicine 08/20/21 documented as of this encounter
--- OUTSIDE RECORDS SUMMARY | 2024-03-09 16:59 | XMS_ITS | Encounter Summary ---
Author Organization [facility] Address [facility] [place] [address] Care Team Providers Care Aerospace Engineer Officer Armament Name Role Phone Lisbet Solitario MD Primary Care Provider [phone] Reason for Visit * Reason Comments Follow-up Encounter Details Date Type Department Care Team (Late st Contact Info) Description 08/07/2021 10:00 AM EDT Office Visit [place]ology [place] [address] HEMATOLOGY AND ONCOLOGY [place], [place] [phone] Renal cell carcinoma, unspecified laterality; Immunotherapy encounter [...] further o Nutrition: Informed re availability of Mortgage Closer prn for diet/nutrition concerns. 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 o Informed re availability of SERVICE SHOP FOREMAN and Psych to assist with any additional psychosocial concerns, anxiety, depression, sleep, etc concerns, barriers to care, assistance with ADs, etc. o Coping with Serious Illness: Discussed impact of cancer diagnosis on mental and physical health. Informed re availability of Psych and Pall Care teams prn. o Advance Directive: He has completed AD, has a copy, will ask medical secretary to scan into eD. Advised re [...] cycle of treatment. Post-tx f/u call with air tucker next week. Time Attestation: I certify spending [...] [facility] Hematology Oncology [address] [place] [address] 03/29/2024 12:[address] [place] [place] [address] Albino Bartholomew MD [facility] [address] [place] [address] 04/05/2024 10:00 AM EST Office Visit [place]ology [place] [address] Albino Bartholomew MD [facility] [address] [place] [address] documented as of this encounter Visit Diagnoses Diagnosis Renal cell carcinoma, unspecified laterality Immunotherapy encounter Reserved for inherently not codable concepts WITHOUT codable children documented in this encounter Care Teams Aerospace Engineer Officer Armament Relationship Specialty Start Date End Date Lisbet Solitario MD [address] [place] [address] PCP - General Family Medicine 01/30/16 08/19/21 documented as of this encounter
--- OUTSIDE RECORDS SUMMARY | 2024-03-09 16:59 | XMS_ITS | Encounter Summary ---
Author Organization [facility] Address [facility] [place] [address] Care Team Providers Care Irrigation Equipment Mechanic Name Role Phone Juan Dempsey MD Primary Care Provider [phone] Encounter Details Date Type Department Care Team (Late st Contact Info) Description 08/20/2021 Telephone [place] [address] NehaAugust Social History Tobacco Use Types Packs/Day [...] - 08/20/2021 4:22 PM EDT Cristofer Tenorio [id number] Diagnosis/Indication: SCREENING, POSITIVE COLOGARD 1. Have you ever had a/an Colonoscopy before? Yes: Date 2007 [facility] If yes, did you have any problems [...] [facility] [place] Hematology Oncology [address] [place] [address] 03/29/2024 12:[address] [place] [address] Albino Bartholomew MD [facility] DR [place] [address] 04/05/2024 10:00 AM EST Office Visit [place]ematology [place] [address] Albino Bartholomew MD [facility] DR [place] [address] documented as of this encounter Visit Diagnoses Not on filedocumented in this encounter Care Teams Irrigation Equipment Mechanic Relationship Specialty Start Date End Date Juan Dempsey MD [address] [place] [address] PCP - General Emergency Medicine 08/20/21 documented as of this encounter
--- OUTSIDE RECORDS SUMMARY | 2024-03-09 16:59 | XMS_ITS | Encounter Summary ---
Author Organization [facility] Address [facility] [place] [address] Care Team Providers Care Inspector Eyeglass Name Role Phone Juan Dempsey MD Primary Care Provider [phone] Reason for Visit * Reason Comments Follow-up Encounter Details Date Type Department Care Team (Late st Contact Info) Description 08/27/2021 1:30 PM EDT Office Visit [place] [address] [address] HEMATOLOGY AND ONCOLOGY [place], [place] [phone] Toxic hepatitis; Renal cell carcinoma, unspecified laterality; [...] from the original note were not included. 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 We'll send orders and I'll ask our c consultant to f/u on results. Advised pt to [...] [facility] Hematology Oncology [address] [place] [address] 03/29/2024 12:[address] [place] [place] [address] Albino Bartholomew MD [facility] DR HEMATOLOGY [place] [address] 04/05/2024 10:00 AM EST Office Visit [place] [address] Albino Bartholomew MD [facility] DR HEMATOLOGY [place] [address] documented as of this encounter Visit Diagnoses Diagnosis Toxic hepatitis Hepatitis, unspecified Renal cell carcinoma, unspecified laterality Elevated LFTs Other abnormal blood chemistry Renal function impairment Unspecified disorder of kidney and ureter Rash Rash and other nonspecific skin eruption documented in this encounter Care Teams Inspector Eyeglass Relationship Specialty Start Date End Date Juan Dempsey MD [address] [place] [address] PCP - General Emergency Medicine 08/20/21 documented as of this encounter
--- OUTSIDE RECORDS SUMMARY | 2024-03-09 16:59 | XMS_ITS | Encounter Summary ---
Author Organization [facility] [place] [address] Care Team Providers Care Fiberglass Boat Maker Name Role Phone Lisbet Solitario MD Primary Care Provider [phone] Encounter Details Date Type Department Care Team (Late st Contact Info) Description 06/24/2021 11:59 PM EST Anesthesia Event 2 [place] [address] Gaby Capone, RN Anesthesia Record [...] [facility] Hematology Oncology [address] [place] [address] 03/29/2024 12:[address] [place] [address] Albino Bartholomew MD [facility] [place] [address] 04/05/2024 10:00 AM EST Office Visit Hematology [place] [address] Albino Bartholomew MD [facility] [address] [place] [address] documented as of this encounter Visit Diagnoses Not on filedocumented in this encounter Care Teams Fiberglass Boat Maker Relationship Specialty Start Date End Date Lisbet Solitario MD [address] [place] [address] PCP - General Family Medicine 01/30/16 08/19/21 documented as of this encounter
--- OUTSIDE RECORDS SUMMARY | 2024-03-09 16:59 | XMS_ITS | Encounter Summary ---
Author Organization [facility] Address [facility] [place] [address] Care Team Providers Care Ironworker Foreman Name Role Phone Lisbet Solitario MD Primary Care Provider [phone] Encounter Details Date Type Department Care Team (Late st Contact Info) Description 07/17/2021 Telephone H[place]ology [place] [address] Mary Collazo, RN Social History [...] 07/17/2021 11:04 AM EDT Message received from parachute/combatant diver officer: Shantal is going to see his dentist [...] at [facility] [place] Oncology [address] [place] [address] 03/29/2024 12:[address] [place] [place] [address] Albino Bartholomew MD [facility] DR [place] [address] 04/05/2024 10:00 AM EST Office Visit [place]ology [place] [address] Albino Bartholomew MD [facility] DR [place] [address] documented as of this encounter Visit Diagnoses Not on filedocumented in this encounter Care Teams Ironworker Foreman Relationship Specialty Start Date End Date Lisbet Solitario MD [address] [place] [address] PCP - General Family Medicine 01/30/16 08/19/21 documented as of this encounter
--- OUTSIDE RECORDS SUMMARY | 2024-03-09 16:59 | XMS_ITS | Encounter Summary ---
Author Organization [facility] Address [facility] Michael [facility] [place] [address] Care Team Providers Care Milk Route Deliverer Name Role Phone Lisbet Solitario MD Primary Care Provider [phone] Reason for Referral * Diagnostic Test (Routine) - Closed Specialty Diagnoses / Procedures Referred By Contac t Referred To Contact Radiology Diagnoses Renal cell carcinoma, unspecified laterality Procedures CT Chest Abdomen Pelvis w Contrast (Generic) Jose Awad, [facility] DR HEMATOLOGY/[place] [address] [facility] [place] [address] Referral ID Status Reason Start Date Expiration Date V isits Requested Visits Authorized [id number] Closed Specialty Service Requested 07/16/2021 01/16/2023 1 1 Reason for Visit * Reason Comments Establish Care * Consultation (Routine) - Closed Specialty Diagnoses / Procedures Referred By Contac t Referred To Contact Hematology and Oncology Diagnoses Renal cell carcinoma, unspecified laterality Jordan Hou MD [facility] [place] [address] [facility] Hem Onc [address] [place] [address] Referral ID Status Reason Start Date Expiration Date V isits Requested Visits Authorized [id number] Closed Consult, Test & Treat 07/07/2021 07/07/2022 1 1 Encounter Details Date Type Department Care Team (Late st Contact Info) Description 07/16/2021 10:30 AM EDT Office Visit Hematology [place] [address] Albino Bartholomew MD [facility] DR HEMATOLOGY [place] [address] Jose Awad, [facility] HEMATOLOGY/[place] [address] [address] [place] [address] Renal cell carcinoma, unspecified laterality 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 Albino Bartholomew MD Hematology/Oncology Section, [facility] Viscose Cellar Charge Handsoil conservation aide, [facility] [phone] documented in this encounter Plan of Treatment Upcoming Encounters Date Type Department Care Team (Late st Contact Info) Description 03/29/2024 10:30 AM EST Laboratory Appointment Lab at [facility] [place] [address] [place] [address] 03/29/2024 12:[address] [place] [address] Albino Bartholomew MD [facility] DR HEMATOLOGY [place] [address] 04/05/2024 10:00 AM EST Office Visit Hematology [place] [address] Albino Bartholomew MD [facility] DR HEMATOLOGY [place] [address] documented as of this encounter Results * [...] who have questions please contact the health health care social worker that requested your imaging first. ? Electronically signed by: German Morel MD, [facility] ([phone]), at 07/20/2021 1:26 PM Narrative 07/20/2021 1:26 [...] patients who have questions please contactthe health health care social worker that requested your imaging first. Electronically signed by: German Morel MD, [facility]([phone]), at 07/20/2021 1:26 PM Albino Bartholomew MD IMG CT ORDERABLES documented in this encounter Visit Diagnoses Diagnosis Renal cell carcinoma, unspecified laterality Renal cell carcinoma, unspecified laterality documented in this encounter Care Teams Milk Route Deliverer Relationship Specialty Start Date End Date Lisbet Solitario MD [address] [place] [address] PCP - General Family Medicine 01/30/16 08/19/21 documented as of this encounter
--- OUTSIDE RECORDS SUMMARY | 2024-03-09 16:59 | XMS_ITS | Encounter Summary ---
Author Organization [facility] Address [facility] [place] [address] Care Team Providers Care Maritime Pilot Name Role Phone Lisbet Solitario MD Primary Care Provider [phone] Encounter Details Date Type Department Care Team (Late st Contact Info) Description 08/11/2021 Telephone Hematology [place] [address] Mary Collazo, RN Social History [...] : Education provided: Plan: 1. Reinforced to patient/care-content designer to call facility 23/11 with any new/worsening signs and symptomsor concerns or questions. Phone number provided. Pt verbalized understanding and is in agreement with plan. documented in this encounter Plan of Treatment Upcoming Encounters Date Type Department Care Team (Late st Contact Info) Description 03/29/2024 10:30 AM EST Laboratory Appointment Lab at [facility] Hematology Oncology [address] [place] [address] 03/29/2024 12:[address] [place] [address] Albino Bartholomew MD [facility] DR [place] [address] 04/05/2024 10:00 AM EST Office Visit Hematology [place] [address] Albino Bartholomew MD [facility] DR [place] [address] documented as of this encounter Visit Diagnoses Not on filedocumented in this encounter Care Teams Maritime Pilot Relationship Specialty Start Date End Date Lisbet Solitario MD [address] [place] [address] PCP - General Family Medicine 01/30/16 08/19/21 documented as of this encounter
--- OUTSIDE RECORDS SUMMARY | 2024-03-09 16:59 | XMS_ITS | Encounter Summary ---
Author Organization [facility] [address] Care Team Providers Care Yarn Twister Name Role Phone Lisbet Solitario MD Primary Care Provider [phone] Reason for Referral * Diagnostic Test (Routine) - Closed Specialty Diagnoses / Procedures Referred By Contac t Referred To Contact Radiology Diagnoses Renal cell carcinoma, unspecified laterality Procedures CT Chest Abdomen Pelvis w Contrast (Generic) Jose Awad [facility] HEMATOLOGY/[place] [address] [facility] [place] [address] Referral ID Status Reason Start Date Expiration Date V isits Requested Visits Authorized [id number] Closed Specialty Service Requested 07/16/2021 01/16/2023 1 1 Reason for Visit * Diagnostic Test (Routine) - Closed Specialty Diagnoses / Procedures Referred By Contac t Referred To Contact Radiology Diagnoses Renal cell carcinoma, unspecified laterality Procedures CT Chest Abdomen Pelvis w Contrast (Generic) Jose Awad [facility] HEMATOLOGY/[place] [address] [facility] [place] [address] Referral ID Status Reason Start Date Expiration Date V isits Requested Visits Authorized [id number] Closed Specialty Service Requested 07/16/2021 01/16/2023 1 1 Encounter Details Date Type Department Care Team (Latest Contact Info) Description 07/20/2021 10:41 AM EDT - 07/20/2021 11:59 PM EDT Hospital Encounter CT Scan at [facility] [place] [address] Albino Bartholomew MD [facility] [place] [address] Renal cell carcinoma, unspecified laterality [...] [facility] [address] [place] [address] 03/29/2024 12:[address] [place] [place] [address] Albino Bartholomew MD [facility] HEMATOLOGY [place] [address] 04/05/2024 10:00 AM EST Office Visit Hematology [place] [address] Albino Bartholomew MD [facility] [address] [place] [address] documented as of this encounter Procedures Procedure [...] who have questions please contact the health urgent care physician assistant that requested your imaging first. ? Electronically signed by: German Morel MD, [facility] ([phone]), at 07/20/2021 1:26 PM Narrative 07/20/2021 1:26 [...] patients who have questions please contactthe health urgent care physician assistant that requested your imaging first. Electronically signed by: German Morel MD, [facility]([phone]), at 07/20/2021 1:26 PM Albino Bartholomew MD [...] mLs documented in this encounter Care Teams Yarn Twister Relationship Specialty Start Date End Date Lisbet Solitario MD [address] [place] [address] PCP - General Family Medicine 01/30/16 08/19/21 documented as of this encounter
--- OUTSIDE RECORDS SUMMARY | 2024-03-09 16:59 | XMS_ITS | Encounter Summary ---
Author Organization [facility] Address [facility] [place] [address] Care Team Providers Care Drug Abuse Counselor Name Role Phone Lisbet Solitario MD Primary Care Provider [phone] Encounter Details Date Type Department Care Team (Latest Contact Info) Description 08/07/2021 8:59 AM EDT - 08/07/2021 9:00 AM EDT Hospital Encounter Hematology [place] [phone] Renal cell carcinoma, unspecified laterality; Medication management [...] [place] [facility] [place] [place] [address] [place] [address] 03/29/2024 12:[address] [place] [address] Albino Bartholomew MD [facility] [address] [place] [address] 04/05/2024 10:00 AM EST Office Visit Hematology [place] [address] Albino Bartholomew MD [facility] DR [place] [address] documented as of this encounter Procedures Procedure [...] 9:11 AM EDT) Neutrophil % 71.7 % [facility] Neutrophil Absolute 5.40 1.70 - 6.10 x10(3)/[facility] Lymph % 18.1 % [facility] Lymphocytes Abs 1.4 0.9 - 3.2 x10(3)/[facility] Monocyte % 5.4 % [facility] Monocyte Abs 0.4 0.3 - 0.9 x10(3)/[facility] Eos % 2.9 % [facility] Eosinophils Abs 0.2 0.0 - 0.4 x10(3)/[facility] Basophil % 1.5 % [facility] Baso Absolute 0.1 0.0 - 0.1 x10(3)/[facility] Immature Gran % 0.40 % [facility] Comment: Immature granulocytes(IG's)percentage and absolute count will include metamyelocytes, myelocytes, and promyelocytes. Blood smears from CBCs yielding IG's will be scanned manually for concordance. If this scan disagrees with the automated IG or if promyelocytes are noted, a manual differential will be performed. Immature Gran Absolute 0.03 0.00 - 0.04 x10(3)/[facility] Blood 08/07/2021 9:11 AM EDT 08/07/2021 9:33 AM EDT Narrative Resulting Agency Comment Spec In Lab Jose Awad DO HEMATOLOGY ORDERABLE S [facility] [place] [address] * (ABNORMAL) Hemogram (08/07/2021 9:11 AM EDT) White Blood Cell 7.5 4.0 - 9.5 x10(3)/[facility] Red Blood Cell 4.85 4.58 - 5.54 x10(6)/mc L [facility] Hemoglobin 13.9 13.7 - 16.5 g/dL [facility] Hematocrit 42.6 40.5 - 48.5 % [facility] Mean Cell Volume 87.8 82.9 - 93.1 fL [facility] Mean Cell Hemoglobin 28.7 27.5 - 32.1 pg [facility] Mean Cell Hemoglobin Concentration 32.6 32.0 - 35.7 g/dL [facility] Platelet 213 145 - 357 x10(3)/ L [facility] RDW Standard Deviation 45.5(H) 36.0 - 45.0 fL [facility] RDW coefficient of variation 14.3(H) 11.4 - 13.8 % [facility] Mean Platelet Volume 9.5 7.6 - 12.9 fL [facility] NRBC% auto 0.0 % [facility] NRBC Absolute 0.000 0.000 - 0.000 x10(3)/mc L [facility] Blood 08/07/2021 9:11 AM EDT 08/07/2021 9:33 AM EDT Narrative Resulting Agency Comment Spec In Lab Jose Awad DO HEMATOLOGY ORDERABLE S [facility] [address] * (ABNORMAL) Comprehensive metabolic panel (non-fasting) (08/07/2021 9:11 AM EDT) Glucose 124 65 - 199 mg/dL [facility] Comment:Diabetes: >=200 mg/d L plus symptoms Blood Urea Nitrogen 24(H) 10 - 20 mg/dL [facility] [...] questions. Chloride 104 98 - 107 mmol/L [facility] Carbon Dioxide 26 22 - 31 mmol/L [facility] Anion Gap 10 5 - 15 mmol/L [facility] Calcium 9.7 8.5 - 10.5 mg/dL [facility] Protein, Total 7.8 6.1 - 8.0 g/dL [facility] Albumin 4.4 3.2 - 5.2 g/dL [facility] Aspartate Aminotransferase 23 0 - 39 unit/L [facility] Alanine Aminotransferase 49 0 - 55 unit/L [facility] Alkaline Phosphatase 153(H) 40 - 130 unit/L [facility] Bilirubin, Total 0.3 0.2 - 1.3 mg/dL [facility] [...] CHEMISTRY ORDERABLES Performing Organization Address [facility] Co de Phone Number [facility] [address] * (ABNORMAL) TSH (08/07/2021 9:11 AM EDT) Thyroid Stimulating Hormone 5.28(H) 0.27 - 4.20 mcIU/mL [facility] Comment: Reference Interval (mcIU/mL): Females: ??First Trimester: 0.23-3.88 ??Second Trimester: 0.22-3.90 ??Third Trimester: 0.44-4.66 Blood 08/07/2021 9:11 AM EDT 08/07/2021 9:33 AM EDT Narrative Resulting Agency Comment Spec In Lab Albino Bartholomew MD CHEMISTRY ORDERABLES [facility] [place] [address] * T4, free (08/07/2021 9:11 AM EDT) Free T4 1.32 0.93 - 1.70 ng/dL [facility] Comment: Reference Interval (ng/dL): Females: ??First Trimester: 0.97-1.68 ??Second Trimester: 0.77-1.51 ??Third Trimester: 0.77-1.49 Blood 08/07/2021 9:11 AM EDT 08/07/2021 9:33 AM EDT Narrative Resulting Agency Comment Spec In Lab Albino Bartholomew MD CHEMISTRY ORDERABLES [facility] [place] [address] documented in this encounter Visit Diagnoses Diagnosis Renal cell carcinoma, unspecified laterality Medication management Encounter for long-term (current) use of other medications documented in this encounter Care Teams Drug Abuse Counselor Relationship Specialty Start Date End Date Lisbet Solitario MD [address] [place] [address] PCP - General Family Medicine 01/30/16 08/19/21 documented as of this encounter
--- OUTSIDE RECORDS SUMMARY | 2024-03-09 16:59 | XMS_ITS | Encounter Summary ---
Author Organization [facility] Address [facility] [place] [address] Care Team Providers Care Logistics Loss Prevention Manager Name Role Phone Juan Dempsey MD Primary Care Provider Reason for Referral * Consultation (JUAN MANUEL) - Closed Specialty Diagnoses / Procedures Referred By Contjuan t Referred To Contact Gastroenterology Diagnoses Encounter for screening for malignant neoplasm of colon Juan Dempsey MD [address] [place] [address] Jordyn Merino MD [facility] [place] [address] Referral ID Status Reason Start Date Expiration Date V isits Requested Visits Authorized [id number] Closed Surgical PCP Updated and/or Approved 08/20/2021 08/20/2022 6 6 Encounter Details Date Type Department Care Team (Latest Contact Info) Description 08/20/2021 Transcribe Orders eDH Incoming Referrals [phone] Juan Dempsey MD [address] [place] [address] Encounter for screening for malignant [...] [facility] On[facility] [address] [place] [address] 03/29/2024 12:[address] [place] [place] [address] Albino Bartholomew MD [facility] [place] [address] 04/05/2024 10:00 AM EST Office Visit Hematology [place] [address] Albino Bartholomew MD [facility] [place] [address] Scheduled Referrals Name Type Priority Associated Diagnoses Order Schedule REFERRAL TO COLONOSCOPY PROCEDURE Outpatient Referral Routine Encounter for screening for malignant neoplasm of colon Ordered: 08/20/2021 documented as of this encounter Visit Diagnoses Diagnosis Encounter for screening for malignant neoplasm of colon Special screening for malignant neoplasms, colon documented in this encounter Care Teams Logistics Loss Prevention Manager Relationship Specialty Start Date End Date Juan Dempsey MD [address] [place] [address] PCP - General Emergency Medicine 08/20/21 documented as of this encounter
--- OUTSIDE RECORDS SUMMARY | 2024-03-09 16:59 | XMS_ITS | Encounter Summary ---
Author Organization [facility] [place] [address] Care Team Providers Care Automotive Parts Advisor Name Role Phone Lisbet Solitario MD Primary Care Provider [phone] Reason for Visit * Treatment/Therapy Plan Authorization (Routine) - Closed Specialty Diagnoses / Procedures Referred By Burak t Referred To Contact Hematology and Oncology Diagnoses Renal cell carcinoma, unspecified laterality Medication management Procedures [id number] ([id number]) Albino Bartholomew MD [facility] [place] [address] [facility] Hem Onc [address] [place] [address] Referral ID Status Reason Start Date Expiration Date Visits Re quested Visits Authorized [id number] Closed 07/30/2021 11/29/2021 99 99 Encounter Details Date Type Department Care Team (Latest Contact Info) Description 08/07/2021 9:01 AM EDT - 08/07/2021 11:59 PM EDT Hospital Encounter [place]ematology [place] [address] Renal cell carcinoma, unspecified laterality; [...] you have serious concerns about any symptom. [facility] # [phone] and ask for the oncologist or sales agent trading stamps on-call documented in this encounter Plan of Treatment Upcoming Encounters Date Type Department Care Team (Late st Contact Info) Description 03/29/2024 10:30 AM EST Laboratory Appointment Lab at [facility] Hematology Oncology [address] [place] [address] 03/29/2024 12:[address] [place] [place] [address] Albino Bartholomew MD [facility] [place] [address] 04/05/2024 10:00 AM EST Office Visit Hematology [place] [address] Albino Bartholomew MD [facility] [place] [address] documented as of this encounter Results * T4, free (08/07/2021 9:11 AM EDT) [facility] T4 1.32 0.93 - 1.70 ng/dL [facility] Comment: Reference Interval (ng/dL): Females: ??First Trimester: 0.97-1.68 ??Second Trimester: 0.77-1.51 ??Third Trimester: 0.77-1.49 Blood 08/07/2021 9:11 AM EDT 08/07/2021 9:33 AM EDT Narrative Resulting Agency Comment Spec In Lab Albino Bartholomew MD CHEMISTRY ORDERABLES [facility] [place] [address] * (ABNORMAL) TSH (08/07/2021 9:11 AM EDT) Thyroid Stimulating Hormone 5.28(H) 0.27 - 4.20 mcIU/mL [facility] Comment: Reference Interval (mcIU/mL): Females: ??First Trimester: 0.23-3.88 ??Second Trimester: 0.22-3.90 ??Third Trimester: 0.44-4.66 Blood 08/07/2021 9:11 AM EDT 08/07/2021 9:33 AM EDT Narrative Resulting Agency Comment Spec In Lab Albino Bartholomew MD CHEMISTRY ORDERABLES [facility] [place] [address] * (ABNORMAL) Comprehensive metabolic panel (non-fasting) (08/07/2021 9:11 AM EDT) Glucose 124 65 - 199 mg/dL [facility] Comment:Diabetes: >=200 mg/d L plus symptoms Blood Urea Nitrogen 24(H) 10 - 20 mg/dL [facility] Creatinine 1.28 0.80 - 1.50 mg/dL [facility] Sodium 140 135 - 145 mmol/L [facility] Potassium 4.0 3.5 - 5.0 mmol/L [facility] Comment: Please note: ??Patients with WBC >100,000 may have falsely elevated Potassium levels. ??For accurate Potassium quantification in these patients send serum separator tube (gold top) for subsequent determinations. ??Contact the Clinical Chemistry Laboratory if there are any questions. Chloride 104 98 - 107 mmol/L [facility] Carbon Dioxide 26 22 - 31 mmol/L [facility] Anion Gap 10 5 - 15 mmol/L [facility] Calcium 9.7 8.5 - 10.5 mg/dL [facility] Protein, Total 7.8 6.1 - 8.0 g/dL [facility] Albumin 4.4 3.2 - 5.2 g/dL [facility] Aspartate Aminotransferase 23 0 - 39 unit/L [facility] Alanine Aminotransferase 49 0 - 55 unit/L [facility] Alkaline Phosphatase 153(H) 40 - 130 unit/L [facility] Bilirubin, Total 0.3 0.2 - 1.3 mg/dL [facility] Est Glomerular Filtration Rate 58(L) >=60 mL/min/1. 73 m?? [facility] [...] In Lab Albino Bartholomew MD CHEMISTRY ORDERABLES [facility] [place] [phone] documented in this encounter Visit Diagnoses Diagnosis [...] mL/hr documented in this encounter Care Teams Automotive Parts Advisor Relationship Specialty Start Date End Date Lisbet Solitario MD [address] [place] [address] PCP - General Family Medicine 01/30/16 08/19/21 documented as of this encounter
--- OUTSIDE RECORDS SUMMARY | 2024-03-09 16:59 | XMS_ITS | Encounter Summary ---
Author Organization [facility] Address [facility] [place] [address] Care Team Providers Care [employer] Rep Name Role Phone Lisbet Solitario MD Primary Care Provider [phone] Reason for Visit * Auth/Cert Specialty Diagnoses / Procedures Referred By Burak mcnair Referred To Contact Diagnoses Renal mass RENAL MASS Procedures PRO REMV KIDNEY, RADICAL PRO CYSTOURETHROSCOPY @NEPHRECTOMY, RADICAL W\REG LYMPHADENECTOMY &\OR VENA CAVA THROMBECTOMY (WRVU 23.81) CYSTO, CYSTOURETHROSCOPY, DIAGNOSTIC (WRVU 2.23) Referral ID Status Reason Start Date Expiration Date Visits Re quested Visits Authorized [id number] 1 1 Encounter Details Date Type Department Care Team (Latest Contact Info) Description 06/23/2021 5:49 AM [facility] - 06/27/2021 12:00 PM [facility] Hospital Encounter [address] [place] [address] Miles Hou MD [facility] [place] [address] Renal mass Discharge Disposition: Home Social History [...] Hospital Course: Raymundo Tenorio was admitted to [facility] on 06/23/2021 through the Same Day Surgery [...] that part of your care. Urology Clinic: [phone] PCP: Lisbet Solitario MD, . Please follow-up [...] whole grains, and beans. You can buy zrtu-eae-bqzntfl fiber supplements such as Metamucil, Benefiber, Citracel, and others. ??? Use kmca-wbv-rqmbwef products. Try them in this order: 1. [...] on the status of your appointment on [facility]. Please call (clinic number for appointments) [...] managed by the Urologic Surgery Team at [facility]. If you have any questions or concerns, please feel free to contact us. Provider Contact Information: Urology Clinic: [phone] [facility] (after business hours): CC: Lisbet Solitario MD [...] whole grains, and beans. You can buy fsel-dcv-mvfthyi fiber supplements such as Metamucil, Benefiber, Citracel, and others. Use rfyu-wgw-quoqcvt products. Try them in this order: Stool [...] on the status of your appointment on [facility]. Please call [phone] (clinic number for appointments) to confirm date [...] as a scribe for Dr. Cline. [facility] Nurse: Becca Capone RN Resident:: Kieran Chua [...] floor status, will discuss discharge planning with director of home care hospice. Code status: Full code Brando Boss MD [...] floor status, will discuss discharge planning with director of home care hospice. Code status: Full code Brando Boss MD [...] any questions/changes in his medical status. Pager: [phone] Lulu Khan OTR/L 06/25/2021 Occupational Therapy Rehabilitation [...] 2.23) performed by Miles Hou MD at [facility] MA[facility] OR ??? PRO REMV KIDNEY, RADICAL Left 06/23/2021 @NEPHRECTOMY, RADICAL W\REG LYMPHADENECTOMY &\OR VENA CAVA THROMBECTOMY (WRVU 23.81) performed by Miles Hou MD at [facility] MA[facility] OR There are no active non-hospital problems to display for this patient. 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 His niece is a PT at [employer], he reports she's already got exercises for [...] outlinedin this evaluation. Time IN / OUT: [id number] Total Minutes, Physical Therapy: 15 Dayanara Kern, PT Pager: [phone] Physical Therapy Inpatient Rehabilitation Department * Betty [...] floor status, will discuss discharge planning with director of home care hospice. Code status: Full code Brando Boss MD [...] of call urban, bed.chair alarm, and 2 [place] falls prevention program. Will check MD orders [...] vein reconstruction. Consent confirmed. LEFT side marked. [facility] Ancef T&S Dawn Tello MD Associated attestation [...] anticipated Patient is insured through: Primary Insurance: [employer] MGD MEDICARE Payor: [employer] [place] MEDICARE / Plan: [facility] / Product Type: *No Product type* / Secondary Insurance: N/A Prescription Coverage: YES Preferred Pharmacy: [facility] [place], [place] - [address] [place] [address] [address] [facility] [address] This plan was formulated with input from patient and team. All are in agreement with plan. Initial IMM given: ??06/23/21 5:50 AM OCM RS to provide DC IMM R. (Mina) DUANE Stallworth RN/CM - Cellphone: [phone] Pager: [phone] Covering Service RN/CM * Plan of Care [...] Admission order reviewed. Primary Insurance on file: N[employer]athat [facility] MEDIC[facility] Secondary Insurance on file: n/a Primary care provider on file: Lisbet Solitario MD [phone] Pharmacy: [facility] [address] [address] Advance Care Planning: Attempt Cardiopulmonary Resuscitation - Inpatient <no information> -Advanced Directive: Other (Surrogacy: Talisha Tenorio (Spouse)) Current Functional Ability: Assistive Equipment and Assistive Person Functional Status Prior to Admission: Independent Home Environment: Others in the home: spouse. Current Living Arrangements: home/apartment/condo. Accessibility Concerns:none noted. Current DME: none [address] [facility] [address] Social & Family Supports: Extended Emergency Contact Information Primary Emergency Contact: Talisha Tenorio [address]: [address] [place] [id number] [place] Mobile Relation: Spouse Secondary Emergency Contact: German Tenorio, MARIO [address] [facility] Mobile Relation: Child Current Care Provided by: [...] via car when medically ready. Registered Nurse Hydraulics Engineer / Interior Plant Caretaker will continue to follow patient???s progress and remain available if situation changes for coordination of care, psychosocial support and/or discharge planning. Office of Care Management Kayla Stallworth RN (Jonas) RN/CM - Cellphone: [phone] Pager: [phone] Covering Service RN/CM * Op Note - Dawn Tello MD - 06/23/2021 1:07 PM EST Operative Note Patient Name: Raymundo Tenorio : [id number] MR#: [id number] Case Date: 06/23/2021 Surgeon: Surgeon(s) and Role: [...] the bladder. The scope was withdrawn. 14 Norwegian Cabezas catheter was placed using 10 cc [...] with 0 Vicryl interrupted sutures in a mezzzg-js-jxbgf manner. The skin was then closed with 4-0 Monocryl in a running fashion. Sponge and instrument count was performed and was correct. The patient tolerated the procedure welland was awakened from anesthesia with no adverse events. The patient was taken to the recovery areain stable condition. Dr. Hou, the attending surgeon, was present for the entire procedure. Dwan Tello MD Associated attestation - Miles Hou MD - 06/23/2021 1:43 PM EST Attestation: Case Date: 06/23/2021 I was present and I participated during the entire procedure (does not need to include opening and closing). MILES HOU MD 06/23/2021 * Brief Op Note - Dawn Tello MD - 06/23/2021 12:14 PM EST Brief Operative Note Patient Name: Raymundo Tenorio : [id number] MR#: [id number] Case Date: 06/23/2021 Surgeon: Surgeon(s) and Role: [...] [facility] Hematology Oncology [address] [place] [address] 03/29/2024 12:[address] [place] [address] Albino Bartholomew MD [facility] DR HEMATOLOGY [place] [address] 04/05/2024 10:00 AM EST Office Visit Hematology [place] [address] Albino Bartholomew MD [facility] DR HEMATOLOGY [place] [address] documented as of this encounter Procedures Procedure [...] RBC STAT 06/23/2021 8:25 AM EST Cystourethroscopy ([id number]) Yes 2021 7:47 AM EST RENAL MASS Remv Kidney, Radical ([id number]) Yes 06/23/2021 7:47 AM EST RENAL MASS [...] Differential, Automated (06/27/2021 1:34 AM EST) Pathologist [facility] Neutrophil % 67.9 % [facility] Neutrophil Absolute 3.91 1.70 - 6.10 x10(3)/[facility] LABORAT[facility] Lymph % 19.8 % [facility] Lymphocytes Abs 1.1 0.9 - 3.2 x10(3)/[facility] LABORATORY Monocyte % 6.1 % [facility] Monocyte Abs 0.4 0.3 - 0.9 x10(3)/[facility] LABORATORY Eos % 4.5 % [facility] Eosinophils Abs 0.3 0.0 - 0.4 x10(3)/[facility] LABORATORY Basophil % 1.2 % [facility] Baso Absolute 0.1 0.0 - 0.1 x10(3)/[facility] Immature Gran % 0.50 % [facility] Comment: Immature granulocytes(IG's)percentage and absolute count will include metamyelocytes, myelocytes, and promyelocytes. Blood smears from CBCs yielding IG's will be scanned manually for concordance. If this scan disagrees with the automated IG or if promyelocytes are noted, a manual differential will be performed. Immature Gran Absolute 0.03 0.00 - 0.04 x10(3)/[facility] LABORATORY Blood 06/27/2021 1:34 AM EST 06/27/2021 1:54 AM EST Narrative Resulting Agency Comment Spec In Lab Brando Boss MD HEMATOLOGY ORDERA BLES [facility] [place] [address] * (ABNORMAL) Hemogram (06/27/2021 1:34 AM EST) Pathologist [facility] White Blood Cell 5.8 4.0 - 9.5 x10(3)/mc L [facility] Red Blood Cell 3.49(L) 4.58 - 5.54 x10(6)/ L [facility] Hemoglobin 9.6(L) 13.7 - 16.5 g/dL [facility] Hematocrit 29.7(L) 40.5 - 48.5 % [facility] Mean Cell Volume 85.1 82.9 - 93.1 fL [facility] Mean Cell Hemoglobin 27.5 27.5 - 32.1 pg [facility] Mean Cell Hemoglobin Concentration 32.3 32.0 - 35.7 g/dL [facility] Platelet 199 145 - 357 x10(3)/[facility] LABORATORY RDW Standard Deviation 44.2 36.0 - 45.0 [facility] LABORATORY RDW coefficient of variation 14.5(H) 11.4 - 13.8 % [facility] Mean Platelet Volume 9.9 7.6 - 12.9 [facility]ORY NRBC% auto 0.0 % [facility] NRBC Absolute 0.000 0.000 - 0.000 x10(3)/[facility] LABORATORY Blood 06/27/2021 1:34 AM EST 06/27/2021 1:54 AM EST Narrative Resulting Agency Comment Spec In Lab Brando Boss MD HEMATOLOGY ORDERA BLES [facility] [place] [address] * Basic Metabolic Panel (non-fasting) (06/27/2021 1:34 AM EST) Glucose 134 65 - 199 mg/dL [facility] Comment:Diabetes: >=200 mg/d L plus symptoms Blood Urea Nitrogen 19 10 - 20 mg/dL [facility] Creatinine 1.22 0.80 - 1.50 mg/dL [facility] Sodium 140 135 - 145 mmol/L [facility] Potassium 3.7 3.5 - 5.0 mmol/L [facility] Comment: Please note: ??Patients with WBC >100,000 may have falsely elevated Potassium levels. ??For accurate Potassium quantification in these patients send serum separator tube (gold top) for subsequent determinations. ??Contact the Clinical Chemistry Laboratory if there are any questions. Chloride 106 98 - 107 mmol/L [facility] Carbon Dioxide 27 22 - 31 mmol/L [facility] Anion Gap 7 5 - 15 mmol/L [facility] Calcium 8.5 8.5 - 10.5 mg/dL [facility] Est Glomerular Filtration Rate 61 >=60 mL/min/1. 73 m?? [facility] Comment: This patient? s estimated [...] Lab Miles Hou MD CHEMISTRY ORDERABL ES [facility] [place] [address] * COVID-19 PCR (06/26/2021 5:46 AM EST) SARS-CoV-2 RNA Not Detected Not Detected [facility] Comment: This result should be [...] diagnosis of COVID-19 is performed using the [employer] m SARS-CoV-2 Assay as authorized by the FDA Emergency Use Authorization (EUA). This EUA assay is intended for In-vitro Diagnostic (IVD) use with respiratory specimens such as nasopharyngeal swabs collected from individuals during the acute phase of infection. This assay is performed based on the instructions for use provided by [employer] and additional guidance provided by CDC and FDA. Testing is performed in the Clinical Genomics and Advanced Technology Laboratory within the Department of Pathology and Laboratory Medicine at [facility], certified under the Clinical Laboratory Improvement [...] fact sheets at the following FDA website: https://www.fda.gov/medical-devices/mlyxjonefxd-nocckfm-0254-dznkz-09-pqpkqzhie- use-a kztvytcaajdbm-itbwyrn-unobyqw/hkwdi-zreaqjvlzjl-powq SARS-CoV-2 RNA Source DISASTER RESPONSE DIRECTOR Swab [facility] Nasopharyngeal Swab 06/26/19 5:46 AM EST 06/26/2021 8:43 AM EST Comment:Symptoms->Surveillan ce Narrative Resulting Agency Comment Spec In Lab Miles Hou MD MOLECULAR ORDERABL ES [facility] [place] [address] * (ABNORMAL) Differential, Automated (06/26/2021 1:31 AM EST) Neutrophil % 71.3 % [facility] Neutrophil Absolute 4.35 1.70 - 6.10 x10(3)/mc L [facility] Lymph % 18.3 % [facility] Lymphocytes Abs 1.1 0.9 - 3.2 x10(3)/mc L [facility] Monocyte % 5.9 % [facility] Monocyte Abs 0.4 0.3 - 0.9 x10(3)/mc L [facility] Eos % 2.6 % [facility] Eosinophils Abs 0.2 0.0 - 0.4 x10(3)/mc L [facility] Basophil % 0.8 % [facility] Baso Absolute 0.0 0.0 - 0.1 x10(3)/mc L [facility] Immature Gran % 1.10 % [facility] Comment: Immature granulocytes(IG's)percentage and absolute count will include metamyelocytes, myelocytes, and promyelocytes. Blood smears from CBCs yielding IG's will be scanned manually for concordance. If this scan disagrees with the automated IG or if promyelocytes are noted, a manual differential will be performed. Immature Gran Absolute 0.07(H) 0.00 - 0.04 x10(3)/[facility] LABORATORY Blood 06/26/2021 1:31 AM EST 06/26/2021 1:42 AM EST Narrative Resulting Agency Comment Spec In Lab Brando Boss MD HEMATOLOGY ORDERA BLES Performing Organization Address City/State/[facility] Co de Phone Number [facility] [place] [address] * (ABNORMAL) Hemogram (06/26/2021 1:31 AM EST) White Blood Cell 6.1 4.0 - 9.5 x10(3)/[facility] LABORATORY Red Blood Cell 3.07(L) 4.58 - 5.54 x10(6)/[facility] LABORATORY Hemoglobin 8.6(L) 13.7 - 16.5 g/dL [facility] Hematocrit 26.5(L) 40.5 - 48.5 % [facility] Mean Cell Volume 86.3 82.9 - 93.1 fL [facility] Mean Cell Hemoglobin 28.0 27.5 - 32.1 pg [facility] Mean Cell Hemoglobin Concentration 32.5 32.0 - 35.7 g/dL [facility] Platelet 166 145 - 357 x10(3)/[facility] LABORATORY RDW Standard Deviation 46.5(H) 36.0 - 45.0 [facility] LABORATORY RDW coefficient of variation 14.6(H) 11.4 - 13.8 % [facility] Mean Platelet Volume 9.8 7.6 - 12.9 fL [facility] NRBC% auto 0.0 % [facility] NRBC Absolute 0.000 0.000 - 0.000 x10(3)/[facility] LABORATORY Blood 06/26/2021 1:31 AM EST 06/26/2021 1:42 AM EST Narrative Resulting Agency Comment Spec In Lab Brando Boss MD HEMATOLOGY ORDERA BLES [facility] [place] [address] * (ABNORMAL) Basic Metabolic Panel (non-fasting) (06/26/2021 1:31 AM EST) Glucose 102 65 - 199 mg/dL [facility] Comment:Diabetes: >=200 mg/d L plus symptoms Blood Urea Nitrogen 18 10 - 20 mg/dL [facility] Creatinine 1.11 0.80 - 1.50 mg/dL [facility] Sodium 138 135 - 145 mmol/L [facility] Potassium 4.0 3.5 - 5.0 mmol/L [facility] Comment: Please note: ??Patients with WBC >100,000 may have falsely elevated Potassium levels. ??For accurate Potassium quantification in these patients send serum separator tube (gold top) for subsequent determinations. ??Contact the Clinical Chemistry Laboratory if there are any questions. Chloride 108(H) 98 - 107 mmol/L [facility] Carbon Dioxide 23 22 - 31 mmol/L [facility] Anion Gap 7 5 - 15 mmol/L [facility] Calcium 8.2(L) 8.5 - 10.5 mg/dL [facility] Est Glomerular Filtration Rate 69 >=60 mL/min/1. 73 m?? [facility] Comment: This patient? s estimated [...] Lab Miles Hou MD CHEMISTRY ORDERABL ES [facility] [place] [address] * Differential, Automated (06/25/2021 1:41 AM EST) Neutrophil % 76.0 % [facility] Neutrophil Absolute 5.35 1.70 - 6.10 x10(3)/[facility] LABORATORY Lymph % 16.2 % [facility] Lymphocytes Abs 1.1 0.9 - 3.2 x10(3)/[facility]ORY Monocyte % 5.5 % [facility] Monocyte Abs 0.4 0.3 - 0.9 x10(3)/[facility]ORATORY Eos % 1.3 % [facility] Eosinophils Abs 0.1 0.0 - 0.4 x10(3)/[facility] LABORATORY Basophil % 0.6 % [facility] Baso Absolute 0.0 0.0 - 0.1 x10(3)/[facility]ORATORY Immature Gran % 0.40 % [facility] Comment: Immature granulocytes(IG's)percentage and absolute count will include metamyelocytes, myelocytes, and promyelocytes. Blood smears from CBCs yielding IG's will be scanned manually for concordance. If this scan disagrees with the automated IG or if promyelocytes are noted, a manual differential will be performed. Immature Gran Absolute 0.03 0.00 - 0.04 x10(3)/[facility] LABORATORY Blood 06/25/2021 1:41 AM EST 06/25/2021 2:12 AM EST Narrative Resulting Agency Comment Spec In Lab Brando Boss MD HEMATOLOGY ORDERA BLES Performing Organization Address City/[facility]/ZIP Co de Phone Number [facility] [place] [address] * (ABNORMAL) Hemogram (06/25/2021 1:41 AM EST) White Blood Cell 7.0 4.0 - 9.5 x10(3)/mc L [facility] Red Blood Cell 3.22(L) 4.58 - 5.54 x10(6)/mc L [facility] Hemoglobin 8.9(L) 13.7 - 16.5 g/dL [facility] Hematocrit 27.4(L) 40.5 - 48.5 % [facility] Mean Cell Volume 85.1 82.9 - 93.1 fL [facility] Mean Cell Hemoglobin 27.6 27.5 - 32.1 pg [facility] Mean Cell Hemoglobin Concentration 32.5 32.0 - 35.7 g/dL [facility] Platelet 154 145 - 357 x10(3)/mc L [facility] RDW Standard Deviation 45.1(H) 36.0 - 45.0 fL [facility] RDW coefficient of variation 14.6(H) 11.4 - 13.8 % [facility] Mean Platelet Volume 10.2 7.6 - 12.9 fL [facility] NRBC% auto 0.0 % [facility] NRBC Absolute 0.000 0.000 - 0.000 x10(3)/mc L [facility] Blood 06/25/2021 1:41 AM EST 06/25/2021 2:12 AM EST Narrative Resulting Agency Comment Spec In Lab Brando Boss MD HEMATOLOGY ORDERA BLES Performing Organization Address City/[facility]/ZIP Co de Phone Number [facility] [place] [address] * (ABNORMAL) Basic Metabolic Panel (non-fasting) (06/25/2021 1:41 AM EST) Glucose 92 65 - 199 mg/dL [facility] Comment:Diabetes: >=200 mg/d L plus symptoms Blood Urea Nitrogen 21(H) 10 - 20 mg/dL [facility] Creatinine 1.32 0.80 - 1.50 mg/dL [facility] Sodium 137 135 - 145 mmol/L [facility] Potassium 4.5 3.5 - 5.0 mmol/L [facility] Comment: Please note: ??Patients with WBC >100,000 may have falsely elevated Potassium levels. ??For accurate Potassium quantification in these patients send serum separator tube (gold top) for subsequent determinations. ??Contact the Clinical Chemistry Laboratory if there are any questions. Chloride 107 98 - 107 mmol/L [facility] Carbon Dioxide 23 22 - 31 mmol/L [facility] Anion Gap 7 5 - 15 mmol/L [facility] Calcium 8.4(L) 8.5 - 10.5 mg/dL [facility] Est Glomerular Filtration Rate 56(L) >=60 mL/min/1. 73 m?? [facility] Comment: This patient? s estimated [...] Lab Miles Hou MD CHEMISTRY ORDERABL ES [facility] [place] [address] * (ABNORMAL) Differential, Automated (06/24/2021 1:12 AM EST) [facility] Neutrophil % 86.5 % [facility] Neutrophil Absolute 9.85(H) 1.70 - 6.10 x10(3)/mc L [facility] Lymph % 7.1 % [facility] Lymphocytes Abs 0.8(L) 0.9 - 3.2 x10(3)/mc L [facility] Monocyte % 5.7 % [facility] Monocyte Abs 0.6 0.3 - 0.9 x10(3)/ L [facility] Eos % 0.0 % [facility] Eosinophils Abs 0.0 0.0 - 0.4 x10(3)/[facility]OR[facility] Basophil % 0.3 % [facility] Baso Absolute 0.0 0.0 - 0.1 x10(3)/mc L [facility] Immature Gran % 0.40 % [facility] Comment: Immature granulocytes(IG's)percentage and absolute count will include metamyelocytes, myelocytes, and promyelocytes. Blood smears from CBCs yielding IG's will be scanned manually for concordance. If this scan disagrees with the automated IG or if promyelocytes are noted, a manual differential will be performed. Immature Gran Absolute 0.04 0.00 - 0.04 x10(3)/mc L [facility] Blood 06/24/2021 1:12 AM EST 06/24/2021 1:28 AM EST Narrative Resulting Agency Comment Spec In Lab Brando Boss MD HEMATOLOGY ORDERA BLES [facility] [place] [address] * (ABNORMAL) Hemogram (06/24/2021 1:12 AM EST) [facility] White Blood Cell 11.4(H) 4.0 - 9.5 x10(3)/mc L [facility] Red Blood Cell 3.51(L) 4.58 - 5.54 x10(6)/mc L [facility] Hemoglobin 9.7(L) 13.7 - 16.5 g/dL [facility] Comment: This result has been called to BERNARDINO PAYAN by Noreen Streeter on 06 24 2021 at 0219, and has been read back. Hematocrit 30.4(L) 40.5 - 48.5 % [facility] Mean Cell Volume 86.6 82.9 - 93.1 fL [facility] Mean Cell Hemoglobin 27.6 27.5 - 32.1 pg [facility] Mean Cell Hemoglobin Concentration 31.9(L) 32.0 - 35.7 g/dL [facility] Platelet 186 145 - 357 x10(3)/ L [facility] RDW Standard Deviation 46.0(H) 36.0 - 45.0 [facility] LABOR[facility]ORY RDW coefficient of variation 14.6(H) 11.4 - 13.8 % [facility] Mean Platelet Volume 9.9 7.6 - 12.9 [facility] NRBC% auto 0.0 % [facility] NRBC Absolute 0.000 0.000 - 0.000 x10(3)/mc L [facility] Blood 06/24/2021 1:12 AM EST 06/24/2021 1:28 AM EST Narrative Resulting Agency Comment Spec In Lab Brando Boss MD HEMATOLOGY ORDERA BLES [facility] [place] [address] * (ABNORMAL) Basic Metabolic Panel (non-fasting) (06/24/2021 1:12 AM EST) Pathologist [facility] Glucose 129 65 - 199 mg/dL [facility] Comment:Diabetes: >=200 mg/d L plus symptoms Blood Urea Nitrogen 22(H) 10 - 20 mg/dL [facility] Creatinine 1.31 0.80 - 1.50 mg/dL [facility] Sodium 136 135 - 145 mmol/L [facility] Potassium 5.3(H) 3.5 - 5.0 mmol/L [facility] Comment: Please note: ??Patients with WBC >100,000 may have falsely elevated Potassium levels. ??For accurate Potassium quantification in these patients send serum separator tube (gold top) for subsequent determinations. ??Contact the Clinical Chemistry Laboratory if there are any questions. Chloride 105 98 - 107 mmol/L [facility] Carbon Dioxide 23 22 - 31 mmol/L [facility] Anion Gap 8 5 - 15 mmol/L [facility] Calcium 8.6 8.5 - 10.5 mg/dL [facility] Est Glomerular Filtration Rate 56(L) >=60 mL/min/1. 73 m?? [facility] Comment: This patient? s estimated [...] Lab Miles Hou MD CHEMISTRY ORDERABL ES [facility] [place] [address] * (ABNORMAL) Differential, Automated (06/23/2021 12:45 PM EST) Neutrophil % 91.4 % [facility] Neutrophil Absolute 7.70(H) 1.70 - 6.10 x10(3)/[facility] Lymph % 5.6 % [facility] Lymphocytes Abs 0.5(L) 0.9 - 3.2 x10(3)/[facility] Monocyte % 2.1 % [facility] Monocyte Abs 0.2(L) 0.3 - 0.9 x10(3)/[facility] Eos % 0.2 % [facility] Eosinophils Abs 0.0 0.0 - 0.4 x10(3)/[facility] Basophil % 0.5 % [facility] Baso Absolute 0.0 0.0 - 0.1 x10(3)/[facility] Immature Gran % 0.20 % [facility] Comment: Immature granulocytes(IG's)percentage and absolute count will include metamyelocytes, myelocytes, and promyelocytes. Blood smears from CBCs yielding IG's will be scanned manually for concordance. If this scan disagrees with the automated IG or if promyelocytes are noted, a manual differential will be performed. Immature Gran Absolute 0.02 0.00 - 0.04 x10(3)/[facility] Blood 06/23/2021 12:4 5 PM EST 06/23/2021 1:11 PM EST Narrative Resulting Agency Comment Spec In Lab Dawn Tello MD HEMATOLOGY ORDERABLE S [facility] [place] [address] * (ABNORMAL) Hemogram (06/23/2021 12:45 PM EST) White Blood Cell 8.4 4.0 - 9.5 x10(3)/[facility] Red Blood Cell 4.55(L) 4.58 - 5.54 x10(6)/mc L [facility] Hemoglobin 12.6(L) 13.7 - 16.5 g/dL [facility] Hematocrit 38.6(L) 40.5 - 48.5 % [facility] Mean Cell Volume 84.8 82.9 - 93.1 fL [facility] Mean Cell Hemoglobin 27.7 27.5 - 32.1 pg [facility] Mean Cell Hemoglobin Concentration 32.6 32.0 - 35.7 g/dL [facility] Platelet 157 145 - 357 x10(3)/mc L [facility] RDW Standard Deviation 45.2(H) 36.0 - 45.0 [facility] RDW coefficient of variation 14.7(H) 11.4 - 13.8 % [facility] Mean Platelet Volume 9.6 7.6 - 12.9 [facility] NRBC% auto 0.0 % [facility] NRBC Absolute 0.000 0.000 - 0.000 x10(3)/mc L [facility] Blood 06/23/2021 12:4 5 PM EST 06/23/2021 1:11 PM EST Narrative Resulting Agency Comment Spec In Lab Dawn Tello MD HEMATOLOGY ORDERABLE S [facility] [place] [address] * (ABNORMAL) Basic Metabolic Panel (non-fasting) (06/23/2021 12:45 PM EST) Glucose 169 65 - 199 mg/dL [facility] Comment:Diabetes: >=200 mg/d L plus symptoms Blood Urea Nitrogen 20 10 - 20 mg/dL [facility] Creatinine 1.21 0.80 - 1.50 mg/dL [facility] Sodium 134(L) 135 - 145 mmol/L [facility] Potassium 4.3 3.5 - 5.0 mmol/L [facility] Comment: Please note: ??Patients with WBC >100,000 may have falsely elevated Potassium levels. ??For accurate Potassium quantification in these patients send serum separator tube (gold top) for subsequent determinations. ??Contact the Clinical Chemistry Laboratory if there are any questions. Chloride 105 98 - 107 mmol/L [facility] Carbon Dioxide 20(L) 22 - 31 mmol/L [facility] Anion Gap 9 5 - 15 mmol/L [facility] Calcium 9.1 8.5 - 10.5 mg/dL [facility] Est Glomerular Filtration Rate 62 >=60 mL/min/1. 73 m?? [facility] Comment: This patient? s estimated [...] Lab Miles Hou MD CHEMISTRY ORDERABL ES [facility] [place] [address] * Surgical Pathology Report (06/23/2021 11:37 AM EST) Final Diagnosis [id number] ? Location: 2WST; 0210; A The signing [...] MD Verified: ??07/02/2021 11:14 ??Pathologist Performed at: ??-[facility] Dept. [place], [place], [place] ?Surgical Pathology DIAGNOSIS A - Left Kidney, biopsy (1) Clear cell renal cell carcinoma, pT3a N1, see synoptic report. Electronically signed by: ?Renea Acuna MD Verified: ??07/02/2021 10:38 ??Pathologist Performed at: ??-[facility] Dept. of Pathology, [place], [place] SYNOPTIC Specimen Parts: ??A Specimen ? [...] 2020 Release ADDITIONAL STUDIES Whole slide scan: [id number] A3-1 [id number] A4-1 [id number] A6-1 [id number] [id number] SPECIMEN(S) SUBMITTED A - Left Kidney, biopsy (1) CLINICAL INFORMATION Renal mass SPECIMEN PROCESSING A - Labeled/Fixative: Left kidney, fresh. Quantity/Size/Weight : Single, 21 x 18 x 10 cm, 2453 g. SPECIMEN DESCRIPTION Resection Specimen: Intact, left, nephrectomy. LESION Size: 17 x 16 x 9.5 cm. Location: Obliterates the mid and lower pole Color: [place]-yellow to red-brown and hemorrhagic. Consistency: soft. Contour: [...] The perinephric soft tissues inked black. Sections/Processing: Claim Clerk sections in 20 cassettes as follows: ?A1: ??Ureter margin ?A2: ??Vascular margins ?A3: ??Longitudinal section of tumor within renal vein ?A4-A5: ??Tumor within renal pelvis ?A6-A7: ??Tumor in relation to hilar fat margin ?A8-A10: ??Tumor in relation to perinephric fat margin ?A11-A12: ??Tumor in relation to Gerota's fascia ?A13: ??Tumor within renal sinus fat ?A14: ??Tumor with ??adjacent parenchyma ?A15-A16: ??Claim Clerk areas of tumor heterogeneity ?A17: ??Uninvolved upper pole ?A18-A19: ??Single bisected perihilar lymph node in each cassette ?A20: ??Single intact candidate perihilar lymph node ??ajw 07/02/2021 11:14 AM EST [facility] SPECIMEN FROM KIDNEY / Unknown 06/23/2021 11:37 AM EST 06/23/2021 11:37 AM EST Miles Hou MD PATHOLOGY/CYTOLOGY ORDERABLES Performing Organization Address [facility] Co de Phone Number [facility] [place] [address] * Specimen to Pathology (06/23/2021 11:37 AM EST) AP Specimen 06/23/2021 11:3 7 AM EST 06/23/2021 11:37 AM EST Narrative [facility] - 06/23/2021 11:37 AM EST Specimen requisition ordered. ??Separate Pathology report to follow Miles Hou MD PATHOLOGY/CYTOLOGY ORDERABLES Performing Organization Address [facility] Co tx Phone Number [facility] [place] [address] * (ABNORMAL) BLOOD GAS 2 ARTERIAL (06/23/2021 8:42 AM EST) pH, Arterial 7.42 7.35 - 7.45 [facility] PCO2, Arterial 36 35 - 45 mmHg [facility] PO2, Arterial 245(H) 85 - 104 mmHg [facility] Bicarbonate, Arterial 23.1 20.0 - 26.0 mmol/L [facility] Base Excess, Arterial -1.3 -3.0 - 3.0 mmol/L [facility] Hgb Blood Gas 11.1(L) 13.7 - 16.5 g/dL [facility] Oxyhemoglobin, Arterial 99.0(H) 94.0 - 97.0 % [facility] Carboxyhemoglob in, Arterial 0.1 % [facility] Comment: Nonsmokers: 0.5-1.5% COHB Smokers: Variable, but usually less than 10% Toxic: 20-30% COHB Lethal: Greater than 60% COHB Methemoglobin, Arterial 0.3 <=1.5 % [facility] Na Whole Blood 136 135 - 145 mmol/L [facility] K Whole Blood 4.0 3.5 - 5.0 mmol/L [facility] Comment: Please note: Patients with WBC >100,000 may have falsely elevated Potassium levels. Contact the Clinical Chemistry Laboratory if there are any questions. ICa Whole Blood 1.29 1.15 - 1.33 mmol/L [facility] Comment: Note: ??Total bilirubin higher than 20 mg/dL may lead to falsely low ionized calcium. CL Whole Blood 106 98 - 107 mmol/L [facility] Gluc Whole Bld 103 65 - 199 mg/dL [facility] Comment:Diabetes: >=200 mg/d L plus symptoms. Lactate WB 1.1 0.5 - 2.2 mmol/L [facility] FIO2 Art 60 % [facility] PF Ratio Art 408 [facility] Blood 06/23/2021 8:42 AM EST 06/23/2021 8:42 AM EST Miles Hou MD POINT OF CARE TEST ORDERABLES [facility] [place] [address] * (ABNORMAL) Hemogram (06/23/2021 8:30 AM EST) White Blood Cell 5.8 4.0 - 9.5 x10(3)/mc L [facility] Red Blood Cell 3.90(L) 4.58 - 5.54 x10(6)/mc L [facility] Hemoglobin 10.7(L) 13.7 - 16.5 g/dL [facility] Hematocrit 33.3(L) 40.5 - 48.5 % [facility] Comment: This result has been called to EMERALD WATTS by PIOTR HEBERT on 06 23 2021 at 0900, and has been read back. Mean Cell Volume 85.4 82.9 - 93.1 fL [facility] Mean Cell Hemoglobin 27.4(L) 27.5 - 32.1 pg [facility] Mean Cell Hemoglobin Concentration 32.1 32.0 - 35.7 g/dL [facility] Platelet 190 145 - 357 x10(3)/mc L [facility] RDW Standard Deviation 45.9(H) 36.0 - 45.0 fL [facility] RDW coefficient of variation 14.7(H) 11.4 - 13.8 % [facility] Mean Platelet Volume 9.9 7.6 - 12.9 fL [facility] NRBC% auto 0.0 % [facility] NRBC Absolute 0.000 0.000 - 0.000 x10(3)/mc L [facility] Blood 06/23/2021 8:30 AM EST 06/23/2021 8:53 AM EST Narrative Resulting Agency Comment Spec In Lab Erica Alves MD HEMATOLOGY ORDERABLE S Performing Organization Address City/State/[facility] Co de Phone Number [facility] [place] [address] * Prepare RBC (06/23/2021 8:25 AM EST) Dispensed? Yes [facility] Blood 06/23/2021 8:25 AM EST 06/23/2021 8:25 AM EST Miles Hou MD BLOOD BANK PRODUCT ORDERABLES [facility] [place] [address] * XR Fluoro No Rad <1Hr - OR Use (06/23/2021 7:42 AM EST) Narrative Dicom, Auditing User - 06/23/2021 7:57 AM EST This exam is auto-finalizing. No interpretation was done. Miles Hou MD IMG FLUORO ORDERAB LES * Type and Screen Validity (06/23/2021 7:15 AM EST) T&S only valid at [facility] Comment:This Type and Screen result is only valid at the [facility] Blood 06/23/2021 7:15 AM EST 06/23/2021 7:32 AM EST Narrative Resulting Agency Comment Spec In Lab Miles Hou MD BLOOD BANK LAB ORD ERABLES Performing Organization Address City/[facility]/ZIP Co de Phone Number [facility] [place] [address] * Antibody screen (06/23/2021 7:15 AM EST) Ab Screen Interp Negative [facility] Expires at [id number] on: 06/26/2021 [facility] Blood 06/23/2021 7:15 AM EST 06/23/2021 7:32 AM EST Narrative Resulting Agency Comment Spec In Lab Miles Hou MD BLOOD BANK LAB ORD ERABLES [facility] [place] [address] * ABO/Rh Typing (06/23/2021 7:15 AM EST) ABORH Type A Pos [facility] Blood 06/23/2021 7:15 AM EST 06/23/2021 7:32 AM EST Narrative Resulting Agency Comment Spec In Lab Miles Hou MD BLOOD BANK LAB ORD ERABLES Performing Organization Address City/[facility]/ZIP Co de Phone Number [facility] [place] [address] * Red Tube Hold (06/23/2021 7:10 AM EST) Pathologist [facility] Red Hold Sample in lab. [facility] Blood No Charge / Unknown 06/23/2021 7:10 AM EST 06/23/2021 8:06 AM EST Miles Hou MD CHEMISTRY ORDERABL ES Performing Organization Address [facility] Co de Phone Number [facility] [place] [address] * Differential, Automated (06/23/2021 7:10 AM EST) Neutrophil % 70.9 % [facility] Neutrophil Absolute 5.93 1.70 - 6.10 x10(3)/[facility] Lymph % 17.1 % [facility] Lymphocytes Abs 1.4 0.9 - 3.2 x10(3)/[facility] Monocyte % 7.8 % [facility] Monocyte Abs 0.6 0.3 - 0.9 x10(3)/[facility] Eos % 2.8 % [facility] Eosinophils Abs 0.2 0.0 - 0.4 x10(3)/[facility] Basophil % 1.2 % [facility] Baso Absolute 0.1 0.0 - 0.1 x10(3)/[facility] Immature Gran % 0.20 % [facility] Comment: Immature granulocytes(IG's)percentage and absolute count will include metamyelocytes, myelocytes, and promyelocytes. Blood smears from CBCs yielding IG's will be scanned manually for concordance. If this scan disagrees with the automated IG or if promyelocytes are noted, a manual differential will be performed. Immature Gran Absolute 0.02 0.00 - 0.04 x10(3)/mcL [facility] Blood 06/23/2021 7:10 AM EST 06/23/2021 8:04 AM EST Narrative Resulting Agency Comment Spec In Lab Miles Hou MD HEMATOLOGY ORDERAB LES [facility] [place] [address] * (ABNORMAL) Hemogram (06/23/2021 7:10 AM EST) White Blood Cell 8.4 4.0 - 9.5 x10(3)/mc L [facility] Red Blood Cell 2.42(L) 4.58 - 5.54 x10(6)/mc L [facility] Hemoglobin 6.7(L) 13.7 - 16.5 g/dL [facility] Hematocrit 20.9(L) 40.5 - 48.5 % [facility] Comment: This result has been called to EMERALD WATTS by Milton Godinez on 06 23 2021 at 0821, and has been read back. Mean Cell Volume 86.4 82.9 - 93.1 fL [facility] Mean Cell Hemoglobin 27.7 27.5 - 32.1 pg [facility] Mean Cell Hemoglobin Concentration 32.1 32.0 - 35.7 g/dL [facility] Platelet 279 145 - 357 x10(3)/mc L [facility] RDW Standard Deviation 47.1(H) 36.0 - 45.0 fL [facility] RDW coefficient of variation 14.8(H) 11.4 - 13.8 % [facility] Mean Platelet Volume 10.1 7.6 - 12.9 fL [facility] NRBC% auto 0.0 % [facility] NRBC Absolute 0.000 0.000 - 0.000 x10(3)/mc L [facility] Blood 06/23/2021 7:10 AM EST 06/23/2021 8:04 AM EST Narrative Resulting Agency Comment Spec In Lab Miles Hou MD HEMATOLOGY ORDERAB LES [facility] [place] [address] * (ABNORMAL) Comprehensive metabolic panel (non-fasting) (06/23/2021 7:10 AM EST) Glucose 93 65 - 199 mg/dL [facility] Comment:Diabetes: >=200 mg/d L plus symptoms Blood Urea Nitrogen 20 10 - 20 mg/dL [facility] Creatinine 1.28 0.80 - 1.50 mg/dL [facility] Sodium 137 135 - 145 mmol/L [facility] Potassium 4.2 3.5 - 5.0 mmol/L [facility] Comment: Please note: ??Patients with WBC >100,000 may have falsely elevated Potassium levels. ??For accurate Potassium quantification in these patients send serum separator tube (gold top) for subsequent determinations. ??Contact the Clinical Chemistry Laboratory if there are any questions. Chloride 106 98 - 107 mmol/L [facility] Carbon Dioxide 21(L) 22 - 31 mmol/L [facility] Anion Gap 10 5 - 15 mmol/L [facility] Calcium 10.0 8.5 - 10.5 mg/dL [facility] Protein, Total 7.3 6.1 - 8.0 g/dL [facility] Albumin 3.7 3.2 - 5.2 g/dL [facility] Aspartate Aminotransferase 20 0 - 39 unit/L [facility] Alanine Aminotransferase 30 0 - 55 unit/L [facility] Alkaline Phosphatase 129 40 - 130 unit/L [facility] Bilirubin, Total 0.6 0.2 - 1.3 mg/dL [facility] Est Glomerular Filtration Rate 58(L) >=60 mL/min/1. 73 m?? [facility] Comment: This patient? s estimated [...] Lab Miles Hou MD CHEMISTRY ORDERABL ES [facility] [place] [address] * ABORH Recheck Status (06/23/2021 7:05 AM EST) ABORH Recheck Order Order Placed [facility] ABORH Type Recheck Complete [facility] Blood 06/23/2021 7:05 AM EST 06/23/2021 7:09 AM EST Narrative Resulting Agency Comment Spec In Lab Dawn Tello MD BLOOD BANK LAB ORDER RADHA [facility] [place] [address] * Antibody screen (06/23/2021 7:05 AM EST) Ab Screen Interp Not Performed [facility] Expires at [id number] on: 06/26/2021 [facility] Blood 06/23/2021 7:05 AM EST 06/23/2021 7:09 AM EST Narrative Resulting Agency Comment Spec In Lab Dawn Tello MD BLOOD BANK LAB ORDER RADHA [facility] [place] [address] * EKG 12 Lead (06/23/2021 7:04 AM EST) Ventricular rate 76 BPM MUSE SYSTEM Atrial Rate 76 BPM MUSE SYSTEM P-R Interval 228 ms MUSE SYSTEM QRS Duration 90 ms MUSE SYSTEM Q-T Interval 384 ms MUSE SYSTEM QTC Calculated (Bezet) 432 ms MUSE SYSTEM Calculated P [place] 31 degrees MUSE SYSTEM Calculated R [place] 33 degrees MUSE SYSTEM Calculated T [place] 32 degrees MUSE SYSTEM INTERPRETATION Sinus rhythm with 1st degree A-V block Left atrial enlargement Septal infarct (cited on or before 23-JUN-2021) Abnormal ECG When compared with ECG of 23-JUN-2021 07:03, (unconfirmed) No significant change was found Confirmed by fellow MD Orellana Thara ([id number]) on 06/23/2021 2:47:30 PM Confirmed by MD Waters Jon ([id number]) on 06/23/2021 4:10:38 PM MUSE SYSTEM 06/23/2021 7:04 AM EST 06/23/2021 4:10 PM EST Unknown ECG ORDERABLES Performing Organization Address City/[facility]/ZIP Co de Phone Number MUSE SYSTEM * EKG 12 Lead (06/23/2021 7:03 AM EST) Ventricular rate 77 BPM MUSE SYSTEM Atrial Rate 77 BPM MUSE SYSTEM P-R Interval 228 ms MUSE SYSTEM QRS Duration 92 ms MUSE SYSTEM Q-T Interval 384 ms MUSE SYSTEM QTC Calculated (Bezet) 434 ms MUSE SYSTEM Calculated P [place] 24 degrees MUSE SYSTEM Calculated R [place] 33 degrees MUSE SYSTEM Calculated T [place] 30 degrees MUSE SYSTEM INTERPRETATION Sinus rhythm with 1st degree A-V block Septal infarct , age undetermined Abnormal ECG No previous ECGs available Confirmed by fellow MD Orellana Thara ([id number]) on 06/23/2021 1:55:29 PM Confirmed by MD [...] subcutaneous injection 5,000 Units 5,000 Units, Subcutaneous, AUTOMOBILE PARKER TO O.R., 1 dose, On Wed06/23/21 at [...] DUANE) 0017 (Given - Provider: Corazon Priest, UDANE)0604 (Given - Provider: Corazon Priest RN)1104 (Given [...] Unit) documented in this encounter Care Teams [employer] Rep Relationship Specialty Start Date End Date Lisbet Solitario MD [address] [place] [address] PCP - General Family Medicine 01/30/16 08/19/21 documented as of this encounter
--- OUTSIDE RECORDS SUMMARY | 2024-03-09 17:00 | XMS_ITS | Encounter Summary ---
Author Organization [facility] Address [facility] [place] [address] Care Team Providers Care Epitaxial Reactor Technician Name Role Phone Lisbet Solitario MD Primary Care Provider [phone] Reason for Visit * Reason Comments Skin Lesion recheck lesion on le ft ankle and left abdomen Encounter Details Date Type Department Care Team (Late st Contact Info) Description 04/14/2017 2:40 PM EST Office Visit Dermatology at [facility] [address] [place] [address] Norm Kelley MD [facility] [address] [place] [address] Seborrheic keratosis, inflamed; Telangiectasia Social History Tobacco [...] history of skin disease 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 RTC: In January 2018 year for [...] by Norm Kelley MD Resident in Dermatology [facility] Patient seen and evaluated with staff hydraulics teacher: Richard Torres MD Section of Dermatology [facility] * Richard Torres MD - 04/14/2017 2:40 [...] [facility] [place] [address] [place] [address] 03/29/2024 12:[address] [place] [address] Albino Bartholomew MD [facility] [address] [place] [address] 04/05/2024 10:00 AM EST Office Visit Hematology [place] [address] Albino Bartholomew MD [facility] [address] [place] [address] documented as of this encounter Visit Diagnoses Diagnosis Seborrheic keratosis, inflamed Inflamed seborrheic keratosis Telangiectasia Other and unspecified capillary diseases documented in this encounter Care Teams Epitaxial Reactor Technician Relationship Specialty Start Date End Date Lisbet Solitario MD [address] [place] [id number] PCP - General Family Medicine 01/30/16 08/19/21 documented as of this encounter
--- OUTSIDE RECORDS SUMMARY | 2024-03-09 17:00 | XMS_ITS | Encounter Summary ---
Author Organization [facility] [place] [address] Care Team Providers Care Refuge Manager Name Role Phone Lisbet Solitario MD Primary Care Provider [phone] Encounter Details Date Type Department Care Team (Late st Contact Info) Description 05/20/2021 1:55 PM EST Ancillary Procedure Radiology Library at [facility] [place] [address] Lisbet Solitario MD [address] [place] [address] Social History Tobacco Use Types [...] AM EST Laboratory Appointment Lab at [facility] Oncology [address] [place] [address] 03/29/2024 12:[address] [place] [phone] Albino Bartholomew MD [facility] HEMATOLOGY [place] [address] 04/05/2024 10:00 AM EST Office Visit [place] [address] Albino Bartholomew MD [facility] [address] [place] [address] documented as of this encounter Procedures Procedure Name Priority Date/Time Associated Diagnosis Comments FILM LIBRARY STORAGE ONLY CT ABDOMEN AND PELVIS Routine 05/20/2021 1:54 PM EST documented in this encounter Results * Film Library- Storage Only CT Abdomen & Pelvis (05/20/2021 1:54 PM EST) Narrative [facility] - 05/20/2021 1:54 PM EST This exam is auto-finalizing. It's purpose is for storage only. Lisbet Solitario MD G FILM LIBRARY ORD ERABLES [place], [place] documented in this encounter Visit Diagnoses Not on filedocumented in this encounter Care Teams Refuge Manager Relationship Specialty Start Date End Date Lisbet Solitario MD [address] [place] [address] PCP - General Family Medicine 01/30/16 08/19/21 documented as of this encounter
--- OUTSIDE RECORDS SUMMARY | 2024-03-09 17:00 | XMS_ITS | Referral Summary ---
Author Organization [facility] Address [address] [place] [address] Care Team Providers Care Sports Information Director Name Role Phone Unavailable Primary Care [...] C Antibody Negative Negative 08/14/2021 9:44 EDT [facility] Blood VENOUS BLOOD / Unknown 08/12/2021 10:40 EDT 08/13/2021 16:44 EDT Provider Outr Resulting Lab CHEMISTRY & BLOOD GAS ORDERABLES [facility] [address] [place] [address] from Last 3 Months or Most Recently Relevant to Health Maintenance
--- OUTSIDE RECORDS SUMMARY | 2024-03-09 17:00 | XMS_ITS | Encounter Summary ---
Author Organization [facility] Address [facility] [place] [address] Care Team Providers Care Kiln Transfer Operator Name Role Phone Lisbet Solitario MD Primary Care Provider [phone] Reason for Visit * Reason Comments Skin Check Skin Lesion Encounter Details Date Type Department Care Team (Late st Contact Info) Description 02/12/2017 9:00 AM EDT Office Visit Dermatology at [facility] [address] [place] [address] Norm Kelley MD [facility] [address] [place] [address] Multiple benign nevi; Scar; Dermatofibroma; Seborrheic keratosis, [...] history of skin disease 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[employer], [place] Medications: Current Outpatient Prescriptions Medication Sig Dispense [...] 0.05% apply twice daily as needed Pharmacy: [facility] - Monitor and return to clinic if [...] by Norm Kelley MD Resident in Dermatology [facility] Patient seen and evaluated with staff software developer: Gerri Mcneal MD Section of Dermatology [facility] * Gerri Mcneal MD - 02/12/2017 9:00 [...] [facility] [address] [place] [id number] 03/29/2024 12:[address] [place] [place] [address] Albino Bartholomew MD [facility] [place] [address] 04/05/2024 10:00 AM EST Office Visit Hematology [place] [address] Albino Bartholomew MD [facility] [place] [address] documented as of this encounter Visit Diagnoses Diagnosis Multiple benign nevi Benign neoplasm of skin, site unspecified Scar Scar condition and fibrosis of skin Dermatofibroma Benign neoplasm of skin, site unspecified Seborrheic keratosis, inflamed Inflamed seborrheic keratosis documented in this encounter Care Teams Kiln Transfer Operator Relationship Specialty Start Date End Date Lisbet Solitario MD [address] [place] [address] PCP - General Family Medicine 01/30/16 08/19/21 documented as of this encounter
--- OUTSIDE RECORDS SUMMARY | 2024-03-09 17:00 | XMS_ITS | Encounter Summary ---
Author Organization [facility] Address [address] [place] [address] Care Team Providers Care Element Winding Machine Tender Name Role Phone Unavailable Primary Care Provider Unavailabl e Encounter Details Date Type Department Care Team (Late st Contact Info) Description 08/12/2021 Lab Requisition [facility] Medicine - [facility] [address] [place] [address] Outr Resulting Lab, Provider Social History Tobacco [...] Antibody Negative Negative 08/14/2021 9:[address] [facility] Blood VENOUS BLOOD / Unknown 08/12/2021 10:40 EDT 08/13/2021 16:44 EDT Provider Outr Resulting Lab CHEMISTRY & BLOOD GAS ORDERABLES [facility] [address] [place] [address] documented in this encounter Visit Diagnoses Not on filedocumented in this encounter
--- OUTSIDE RECORDS SUMMARY | 2024-03-09 17:00 | XMS_ITS | Encounter Summary ---
Author Organization [facility] Address [facility] [place] [address] Care Team Providers Care Brake Engineer Name Role Phone Lisbet Solitario MD Primary Care Provider [phone] Reason for Visit * Auth/Cert Specialty Diagnoses / Procedures Referred By Burak mcnair Referred To Contact Diagnoses Renal mass RENAL MASS Procedures PRO REMV KIDNEY, RADICAL PRO CYSTOURETHROSCOPY @NEPHRECTOMY, RADICAL W\REG LYMPHADENECTOMY &\OR VENA CAVA THROMBECTOMY (WRVU 23.81) CYSTO, CYSTOURETHROSCOPY, DIAGNOSTIC (WRVU 2.23) Referral ID Status Reason Start Date Expiration Date Visits Re quested Visits Authorized [id number] 1 1 Encounter Details Date Type Department Care Team (Late st Contact Info) Description 06/23/2021 7:30 AM EST - 06/23/2021 12:15 PM EST [place] [address] Miles Hou MD [facility] [place] [address] @NEPHRECTOMY, RADICAL W\REG LYMPHADENECTOMY &\OR VENA CAVA [...] Hospital Course: Raymundo Tenorio was admitted to [facility] on 06/23/2021 through the Same Day Surgery [...] that part of your care. Urology Clinic: [phone] PCP: Lisbet Solitario MD, . Please follow-up [...] whole grains, and beans. You can buy bokh-dft-eqnyorj fiber supplements such as Metamucil, Benefiber, Citracel, and others. ??? Use hxyz-yhi-ckfdkgt products. Try them in this order: 1. [...] on the status of your appointment on [facility]. Please call (clinic number for appointments) to [...] managed by the Urologic Surgery Team at [facility]. If you have any questions or concerns, please feel free to contact us. Provider Contact Information: Urology Clinic: [phone] [facility] (after business hours): CC: Lisbet Solitario MD [...] whole grains, and beans. You can buy eapj-exn-yxxwahe fiber supplements such as Metamucil, Benefiber, Citracel, and others. Use eber-gwa-zezscsc products. Try them in this order: Stool [...] on the status of your appointment on [facility]. Please call (clinic number for appointments) to [...] acting as a scribe for Dr. Cline. [facility] Nurse: Becca Capone RN Resident:: Kieran [...] will discuss discharge planning with day care home mother. Code status: Full code Brando Boss MD [...] will discuss discharge planning with day care home mother. Code status: Full code Brando Boss MD P390 * Zachery Cline MD - 06/25/2021 11:31 [...] any questions/changes in his medical status. Pager: [phone] Lulu Khan OTR/L 06/25/2021 Occupational Therapy Rehabilitation [...] 2.23) performed by Miles Hou MD at [facility] MAIN OR ??? PRO REMV KIDNEY, RADICAL Left 06/23/2021 @NEPHRECTOMY, RADICAL W\REG LYMPHADENECTOMY &\OR VENA CAVA THROMBECTOMY (WRVU 23.81) performed by Miles Hou MD at [facility] MAIN OR There are no active non-hospital problems to display for this patient. 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 His niece is a PT at [employer], he reports she's already got exercises for [...] outlinedin this evaluation. Time IN / OUT: 1490-1905 Total Minutes, Physical Therapy: 15 Dayanara Kern, PT Pager: [phone] Physical Therapy Inpatient Rehabilitation Department * Betty [...] will discuss discharge planning with day care home mother. Code status: Full code Brando Boss MD [...] reconstruction. Consent confirmed. LEFT side marked. [facility] Ancef T&S Dawn Tello MD Associated attestation [...] anticipated Patient is insured through: Primary Insurance: [employer] [place] MEDICARE Payor: [employer] [place] / Plan: [facility] / Product Type: *No Product type* / Secondary Insurance: N/A Prescription Coverage: YES Preferred Pharmacy: [id number] [address] This plan was formulated with input from patient and team. All are in agreement with plan. Initial IMM given: ??06/23/21 5:50 AM OCM RS to provide DC IMM R. (Mina) DUANE Stallworth RN/CM - Cellphone: [phone] Pager: [phone] Covering Service RN/CM * Plan of Care [...] Admission order reviewed. [facility] Secondary Insurance on file: n/a Primary care provider on file: Lisbet Solitario MD [phone] Pharmacy: [id number] - [address] [address] Advance Care Planning: Attempt Cardiopulmonary Resuscitation - Inpatient <no information> -Advanced Directive: Other (Surrogacy: Talisha Tenorio (Spouse)) Current Functional Ability: Assistive Equipment and Assistive Person Functional Status Prior to Admission: Independent Home Environment: Others in the home: spouse. Current Living Arrangements: home/apartment/condo. Accessibility Concerns:none noted. Current DME: none [facility] [address] Social & Family Supports: Extended Emergency Contact Information Primary Emergency Contact: Talisha Tenorio Address: [address] [place] [phone] [place] Mobile Relation: Spouse Secondary Emergency Contact: [place] [address] [facility] Mobile Relation: Child Current Care Provided [...] via car when medically ready. Registered Nurse Regional Driver / Cigarette Tipper will continue to follow patient???s progress and remain available if situation changes for coordination of care, psychosocial support and/or discharge planning. Office of Care Management Kayla Stallworth RN (Jonas) RN/CM - Cellphone: [phone] Pager: [phone] Covering Service RN/CM * Op Note - Dawn Tello MD - 06/23/2021 1:07 PM EST Operative Note Patient Name: Raymundo Tenorio : [id number] MR#: [id number] Case Date: 06/23/2021 Surgeon: Surgeon(s) and Role: [...] the bladder. The scope was withdrawn. 14 Y[place]ut Cabezas catheter was placed using 10 cc [...] with 0 Vicryl interrupted sutures in a tbafdq-bv-bblye manner. The skin was then closed with [...] Operative Note Patient Name: Raymundo Tenorio : [id number] MR#: [id number] Case Date: 06/23/2021 Surgeon: Surgeon(s) and Role: [...] [facility] Hematology Oncology [address] [place] [address] 03/29/2024 12:[address] [place] [address] Albino Bartholomew MD [facility] DR [place] [address] 04/05/2024 10:00 AM EST Office Visit Hematology [place] [address] Albino Bartholomew MD [facility] DR [place] [address] documented as of this encounter Procedures Procedure [...] RBC STAT 06/23/2021 8:25 AM EST Cystourethroscopy ([id number]) Yes 2021 7:47 AM EST RENAL MASS Remv Kidney, Radical ([id number]) Yes 06/23/2021 7:47 AM EST RENAL MASS [...] Differential, Automated (06/27/2021 1:34 AM EST) Pathologist [facility] Neutrophil % 67.9 % [facility] Neutrophil Absolute 3.91 1.70 - 6.10 x10(3)/[facility] Lymph % 19.8 % [facility] Lymphocytes Abs 1.1 0.9 - 3.2 x10(3)/[facility] Monocyte % 6.1 % [facility] Monocyte Abs 0.4 0.3 - 0.9 x10(3)/[facility] Eos % 4.5 % [facility] Eosinophils Abs 0.3 0.0 - 0.4 x10(3)/[facility] Basophil % 1.2 % [facility] Baso Absolute 0.1 0.0 - 0.1 x10(3)/[facility] Immature Gran % 0.50 % [facility] Comment: [...] Lab Brando Boss MD HEMATOLOGY ORDERA BLES [facility] [place] [address] * (ABNORMAL) Hemogram (06/27/2021 1:34 AM EST) [facility] White Blood Cell 5.8 4.0 - 9.5 x10(3)/ L [facility] Red Blood Cell 3.49(L) 4.58 - 5.54 x10(6)/ L [facility] Hemoglobin 9.6(L) 13.7 - 16.5 g/dL [facility] Hematocrit 29.7(L) 40.5 - 48.5 % [facility] Mean Cell Volume 85.1 82.9 - 93.1 fL [facility] Mean Cell Hemoglobin 27.5 27.5 - 32.1 pg [facility] Mean Cell Hemoglobin Concentration 32.3 32.0 - 35.7 g/dL [facility] Platelet 199 145 - 357 x10(3)/[facility] RDW Standard Deviation 44.2 36.0 - 45.0 [facility] RDW coefficient of variation 14.5(H) 11.4 - 13.8 % [facility] Mean Platelet Volume 9.9 7.6 - 12.9 [facility] NRBC% auto 0.0 % [facility] NRBC Absolute 0.000 0.000 - 0.000 x10(3)/[facility] Blood 06/27/2021 1:34 AM EST 06/27/2021 1:54 AM EST Narrative Resulting Agency Comment Spec In Lab Brando Boss MD HEMATOLOGY ORDERA BLES [facility] [place] [address] * Basic Metabolic Panel (non-fasting) (06/27/2021 1:34 AM EST) Glucose 134 65 - 199 mg/dL [facility] Comment:Diabetes: >=200 mg/d L plus symptoms Blood Urea Nitrogen 19 10 - 20 mg/dL [facility] Creatinine 1.22 0.80 - 1.50 mg/dL [facility] Sodium 140 135 - 145 mmol/L [facility] Potassium 3.7 3.5 - 5.0 mmol/L [facility] Comment: Please note: ??Patients with WBC >100,000 may have falsely elevated Potassium levels. ??For accurate Potassium quantification in these patients send serum separator tube (gold top) for subsequent determinations. ??Contact the Clinical Chemistry Laboratory if there are any questions. Chloride 106 98 - 107 mmol/L [facility] Carbon Dioxide 27 22 - 31 mmol/L [facility] Anion Gap 7 5 - 15 mmol/L [facility] Calcium 8.5 8.5 - 10.5 mg/dL [facility] Est Glomerular Filtration Rate 61 >=60 mL/min/1. 73 m?? [facility] [...] Lab Miles Hou MD CHEMISTRY ORDERABL ES [facility] [place] [address] * COVID-19 PCR (06/26/2021 5:46 AM EST) SARS-CoV-2 RNA Not Detected Not Detected [facility] Comment: This result should be [...] diagnosis of COVID-19 is performed using the [employer] Report m SARS-CoV-2 Assay as authorized by the FDA Emergency Use Authorization (EUA). This EUA assay is intended for In-vitro Diagnostic (IVD) use with respiratory specimens such as nasopharyngeal swabs collected from individuals during the acute phase of infection. This assay is performed based on the instructions for use provided by [employer] and additional guidance provided by CDC and FDA. Testing is performed in the Clinical Genomics and Advanced Technology Laboratory within the Department of Pathology and Laboratory Medicine at [facility], certified under the Clinical Laboratory Improvement [...] fact sheets at the following FDA website: https://www.fda.gov/medical-devices/szcdmqcbjfh-aovmzoh-5281-edkuk-89-mipfcdvsv- use-a svifirmdjipcb-rpfvndv-wrwedpq/tedjf-xhdrhpxyqkn-folv SARS-CoV-2 RNA Source [employer]ICER Swab [facility] Nasopharyngeal Swab 06/26/19 5:46 AM EST 06/26/2021 8:43 AM EST Comment:Symptoms->Surveillan ce Narrative Resulting Agency Comment Spec In Lab Miles Hou MD MOLECULAR ORDERABL ES [facility] [place] [address] * (ABNORMAL) Differential, Automated (06/26/2021 1:31 AM EST) Neutrophil % 71.3 % [facility] Neutrophil Absolute 4.35 1.70 - 6.10 x10(3)/mc L [facility] Lymph % 18.3 % [facility] Lymphocytes Abs 1.1 0.9 - 3.2 x10(3)/mc L [facility] Monocyte % 5.9 % [facility] Monocyte Abs 0.4 0.3 - 0.9 x10(3)/mc L [facility] Eos % 2.6 % [facility] Eosinophils Abs 0.2 0.0 - 0.4 x10(3)/mc L [facility] Basophil % 0.8 % [facility] Baso Absolute 0.0 0.0 - 0.1 x10(3)/mc L [facility] Immature Gran % 1.10 % [facility] Comment: Immature granulocytes(IG's)percentage and absolute count will include metamyelocytes, myelocytes, and promyelocytes. Blood smears from CBCs yielding IG's will be scanned manually for concordance. If this scan disagrees with the automated IG or if promyelocytes are noted, a manual differential will be performed. Immature Gran Absolute 0.07(H) 0.00 - 0.04 x10(3)/mc L [facility] Blood 06/26/2021 1:31 AM EST 06/26/2021 1:42 AM EST Narrative Resulting Agency Comment Spec In Lab Brando Boss MD HEMATOLOGY ORDERA BLES [facility] [place] [address] * (ABNORMAL) Hemogram (06/26/2021 1:31 AM EST) White Blood Cell 6.1 4.0 - 9.5 x10(3)/ L [facility] Red Blood Cell 3.07(L) 4.58 - 5.54 x10(6)/[facility] Hemoglobin 8.6(L) 13.7 - 16.5 g/dL [facility] Hematocrit 26.5(L) 40.5 - 48.5 % [facility] Mean Cell Volume 86.3 82.9 - 93.1 fL [facility] Mean Cell Hemoglobin 28.0 27.5 - 32.1 pg [facility] Mean Cell Hemoglobin Concentration 32.5 32.0 - 35.7 g/dL [facility] Platelet 166 145 - 357 x10(3)/ L [facility] RDW Standard Deviation 46.5(H) 36.0 - 45.0 [facility] RDW coefficient of variation 14.6(H) 11.4 - 13.8 % [facility] Mean Platelet Volume 9.8 7.6 - 12.9 [facility] NRBC% auto 0.0 % [facility] NRBC Absolute 0.000 0.000 - 0.000 x10(3)/ L [facility] Blood 06/26/2021 1:31 AM EST 06/26/2021 1:42 AM EST Narrative Resulting Agency Comment Spec In Lab Brando Boss MD HEMATOLOGY ORDERA BRIANNAS [facility] [place] [address] * (ABNORMAL) Basic Metabolic Panel (non-fasting) (06/26/2021 1:31 AM EST) Glucose 102 65 - 199 mg/dL [facility] Comment:Diabetes: >=200 mg/d L plus symptoms Blood Urea Nitrogen 18 10 - 20 mg/dL [facility] Creatinine 1.11 0.80 - 1.50 mg/dL [facility] Sodium 138 135 - 145 mmol/L [facility] [...] questions. Chloride 108(H) 98 - 107 mmol/L [facility] Carbon Dioxide 23 22 - 31 mmol/L [facility] Anion Gap 7 5 - 15 mmol/L [facility] Calcium 8.2(L) 8.5 - 10.5 mg/dL [facility] Est Glomerular Filtration Rate 69 >=60 mL/min/1. 73 m?? [facility] [...] Lab Miles Hou MD CHEMISTRY ORDERABL ES [facility] [place] [address] * Differential, Automated (06/25/2021 1:41 AM EST) Neutrophil % 76.0 % [facility] Neutrophil Absolute 5.35 1.70 - 6.10 x10(3)/[facility] Lymph % 16.2 % [facility] Lymphocytes Abs 1.1 0.9 - 3.2 x10(3)/[facility] Monocyte % 5.5 % [facility] Monocyte Abs 0.4 0.3 - 0.9 x10(3)/[facility] Eos % 1.3 % [facility] Eosinophils Abs 0.1 0.0 - 0.4 x10(3)/[facility] Basophil % 0.6 % [facility] Baso Absolute 0.0 0.0 - 0.1 [...] - 0.04 x10(3)/[facility] Blood 06/25/2021 1:41 AM EST 06/25/2021 2:12 AM EST Narrative Resulting Agency Comment Spec In Lab Brando Boss MD HEMATOLOGY ORDERA BLES [facility] [place] [address] * (ABNORMAL) Hemogram (06/25/2021 1:41 AM EST) White Blood Cell 7.0 4.0 - 9.5 x10(3)/mc L [facility] Red Blood Cell 3.22(L) 4.58 - 5.54 x10(6)/mc L [facility] Hemoglobin 8.9(L) 13.7 - 16.5 g/dL [facility] Hematocrit 27.4(L) 40.5 - 48.5 % [facility] Mean Cell Volume 85.1 82.9 - 93.1 fL [facility] Mean Cell Hemoglobin 27.6 27.5 - 32.1 pg [facility] Mean Cell Hemoglobin Concentration 32.5 32.0 - 35.7 g/dL [facility] Platelet 154 145 - 357 x10(3)/mc L [facility] RDW Standard Deviation 45.1(H) 36.0 - 45.0 [facility] RDW coefficient of variation 14.6(H) 11.4 - 13.8 % [facility] Mean Platelet Volume 10.2 7.6 - 12.9 [facility] NRBC% auto 0.0 % [facility] NRBC Absolute 0.000 0.000 - 0.000 x10(3)/mc L [facility] Blood 06/25/2021 1:41 AM EST 06/25/2021 2:12 AM EST Narrative Resulting Agency Comment Spec In Lab Brando Boss MD HEMATOLOGY ORDERA BLES [facility] [place] [address] * (ABNORMAL) Basic Metabolic Panel (non-fasting) (06/25/2021 1:41 AM EST) Glucose 92 65 - 199 mg/dL [facility] Comment:Diabetes: >=200 mg/d L plus symptoms Blood Urea Nitrogen 21(H) 10 - 20 mg/dL [facility] Creatinine 1.32 0.80 - 1.50 mg/dL [facility] Sodium 137 135 - 145 mmol/L [facility] Potassium 4.5 3.5 - 5.0 mmol/L [facility] Comment: Please note: ??Patients with WBC >100,000 may have falsely elevated Potassium levels. ??For accurate Potassium quantification in these patients send serum separator tube (gold top) for subsequent determinations. ??Contact the Clinical Chemistry Laboratory if there are any questions. Chloride 107 98 - 107 mmol/L [facility] Carbon Dioxide 23 22 - 31 mmol/L [facility] Anion Gap 7 5 - 15 mmol/L [facility] Calcium 8.4(L) 8.5 - 10.5 mg/dL [facility] Est Glomerular Filtration Rate 56(L) >=60 mL/min/1. 73 m?? [facility] [...] MD CHEMISTRY ORDERABL ES Performing Organization Address [facility]/ZIP Co de Phone Number [facility] [place] [address] * (ABNORMAL) Differential, Automated (06/24/2021 1:12 AM EST) Neutrophil % 86.5 % [facility] Neutrophil Absolute 9.85(H) 1.70 - 6.10 x10(3)/mc L [facility] Lymph % 7.1 % [facility] Lymphocytes Abs 0.8(L) 0.9 - 3.2 x10(3)/mc L [facility] Monocyte % 5.7 % [facility] Monocyte Abs 0.6 0.3 - 0.9 x10(3)/mc L [facility] Eos % 0.0 % [facility] Eosinophils Abs 0.0 0.0 - 0.4 x10(3)/mc L [facility] Basophil % 0.3 % [facility] Baso Absolute 0.0 0.0 - 0.1 x10(3)/mc L [facility] Immature Gran % 0.40 % [facility] Comment: Immature granulocytes(IG's)percentage and absolute count will include metamyelocytes, myelocytes, and promyelocytes. Blood smears from CBCs yielding IG's will be scanned manually for concordance. If this scan disagrees with the automated IG or if promyelocytes are noted, a manual differential will be performed. Immature Gran Absolute 0.04 0.00 - 0.04 x10(3)/mc L [facility] Blood 06/24/2021 1:12 AM EST 06/24/2021 1:28 AM EST Narrative Resulting Agency Comment Spec In Lab Brando Boss MD HEMATOLOGY ORDERA BLES Performing Organization Address City/[facility]/ZIP Co de Phone Number [facility] [place] [address] * (ABNORMAL) Hemogram (06/24/2021 1:12 AM EST) White Blood Cell 11.4(H) 4.0 - 9.5 x10(3)/mc L [facility] Red Blood Cell 3.51(L) 4.58 - 5.54 x10(6)/mc L [facility] Hemoglobin 9.7(L) 13.7 - 16.5 g/dL [facility] Comment: This result has been called to BERNARDINO PAYAN by Noreen Streeter on 06 24 2021 at 0219, and has been read back. Hematocrit 30.4(L) 40.5 - 48.5 % [facility] Mean Cell Volume 86.6 82.9 - 93.1 fL [facility] Mean Cell Hemoglobin 27.6 27.5 - 32.1 pg [facility] Mean Cell Hemoglobin Concentration 31.9(L) 32.0 - 35.7 g/dL [facility] Platelet 186 145 - 357 x10(3)/mc L [facility] RDW Standard Deviation 46.0(H) 36.0 - 45.0 fL [facility] RDW coefficient of variation 14.6(H) 11.4 - 13.8 % [facility] Mean Platelet Volume 9.9 7.6 - 12.9 fL [facility] NRBC% auto 0.0 % [facility] NRBC Absolute 0.000 0.000 - 0.000 x10(3)/ L [facility] Blood 06/24/2021 1:12 AM EST 06/24/2021 1:28 AM EST Narrative Resulting Agency Comment Spec In Lab Brando Boss MD HEMATOLOGY ORDERA BLES [facility] [place] [address] * (ABNORMAL) Basic Metabolic Panel (non-fasting) (06/24/2021 1:12 AM EST) Glucose 129 65 - 199 mg/dL [facility] Comment:Diabetes: >=200 mg/d L plus symptoms Blood Urea Nitrogen 22(H) 10 - 20 mg/dL [facility] Creatinine 1.31 0.80 - 1.50 mg/dL [facility] Sodium 136 135 - 145 mmol/L [facility] Potassium 5.3(H) 3.5 - 5.0 mmol/L [facility] Comment: Please note: ??Patients with WBC >100,000 may have falsely elevated Potassium levels. ??For accurate Potassium quantification in these patients send serum separator tube (gold top) for subsequent determinations. ??Contact the Clinical Chemistry Laboratory if there are any questions. Chloride 105 98 - 107 mmol/L [facility] Carbon Dioxide 23 22 - 31 mmol/L [facility] Anion Gap 8 5 - 15 mmol/L [facility] Calcium 8.6 8.5 - 10.5 mg/dL [facility] Est Glomerular Filtration Rate 56(L) >=60 mL/min/1. 73 m?? [facility] Lab Miles Hou MD CHEMISTRY ORDERABL ES [facility] [place] [id number] * (ABNORMAL) Differential, Automated (06/23/2021 12:45 PM EST) Neutrophil % 91.4 % [facility] Neutrophil Absolute 7.70(H) 1.70 - 6.10 x10(3)/[facility] LABORATORY Lymph % 5.6 % [facility] LAB[facility]ORY Lymphocytes Abs 0.5(L) 0.9 - 3.2 x10(3)/[facility] LABORATORY Monocyte % 2.1 % [facility] LABORATORY Monocyte Abs 0.2(L) 0.3 - 0.9 x10(3)/[facility] LABORATORY Eos % 0.2 % [facility] LAB[facility] Eosinophils Abs 0.0 0.0 - 0.4 x10(3)/[facility] LABORATORY Basophil % 0.5 % [facility] LABORATORY Baso Absolute 0.0 0.0 - 0.1 x10(3)/[facility] LABORATORY Immature Gran % 0.20 % [facility] Comment: Immature granulocytes(IG's)percentage and absolute count will include metamyelocytes, myelocytes, and promyelocytes. Blood smears from CBCs yielding IG's will be scanned manually for concordance. If this scan disagrees with the automated IG or if promyelocytes are noted, a manual differential will be performed. Immature Gran Absolute 0.02 0.00 - 0.04 x10(3)/[facility] LABORATORY Blood 06/23/2021 12:4 5 PM EST 06/23/2021 1:11 PM EST Narrative Resulting Agency Comment Spec In Lab Dawn Tello MD HEMATOLOGY ORDERABLE S [facility] [place] [address] * (ABNORMAL) Hemogram (06/23/2021 12:45 PM EST) Pathologist [facility] White Blood Cell 8.4 4.0 - 9.5 x10(3)/mc L [facility] Red Blood Cell 4.55(L) 4.58 - 5.54 x10(6)/mc L [facility] Hemoglobin 12.6(L) 13.7 - 16.5 g/dL [facility] Hematocrit 38.6(L) 40.5 - 48.5 % [facility] Mean Cell Volume 84.8 82.9 - 93.1 fL [facility] Mean Cell Hemoglobin 27.7 27.5 - 32.1 pg [facility] Mean Cell Hemoglobin Concentration 32.6 32.0 - 35.7 g/dL [facility] Platelet 157 145 - 357 x10(3)/ L [facility] RDW Standard Deviation 45.2(H) 36.0 - 45.0 [facility] LABORATORY RDW coefficient of variation 14.7(H) 11.4 - 13.8 % [facility] Mean Platelet Volume 9.6 7.6 - 12.9 [facility] LABORATORY NRBC% auto 0.0 % [facility] LABORATORY NRBC Absolute 0.000 0.000 - 0.000 x10(3)/ L [facility] Blood 06/23/2021 12:4 5 PM EST 06/23/2021 1:11 PM EST Narrative Resulting Agency Comment Spec In Lab Dawn Tello MD HEMATOLOGY ORDERABLE S [facility] [place] [address] * (ABNORMAL) Basic Metabolic Panel (non-fasting) (06/23/2021 12:45 PM EST) Glucose 169 65 - 199 mg/dL [facility] Comment:Diabetes: >=200 mg/d L plus symptoms Blood Urea Nitrogen 20 10 - 20 mg/dL [facility] Creatinine 1.21 0.80 - 1.50 mg/dL [facility] Sodium 134(L) 135 - 145 mmol/L [facility] Potassium 4.3 3.5 - 5.0 mmol/L [facility] Comment: Please note: ??Patients with WBC >100,000 may have falsely elevated Potassium levels. ??For accurate Potassium quantification in these patients send serum separator tube (gold top) for subsequent determinations. ??Contact the Clinical Chemistry Laboratory if there are any questions. Chloride 105 98 - 107 mmol/L [facility] Carbon Dioxide 20(L) 22 - 31 mmol/L [facility] Anion Gap 9 5 - 15 mmol/L [facility] Calcium 9.1 8.5 - 10.5 mg/dL [facility] Est Glomerular Filtration Rate 62 >=60 mL/min/1. 73 m?? [facility] [...] Lab Miles Hou MD CHEMISTRY ORDERABL ES [facility] [place] [address] * Surgical Pathology Report (06/23/2021 11:37 AM EST) Final Diagnosis [id number] ? Location: 2WST; 0210; A The signing [...] MD Verified: ??07/02/2021 11:14 ??Pathologist Performed at: ??[facility] Dept. of Pathology, [place], [place] ?Surgical Pathology DIAGNOSIS A - Left Kidney, biopsy (1) Clear cell renal cell carcinoma, pT3a N1, see synoptic report. Electronically signed by: ?Renea Acuna MD Verified: ??07/02/2021 10:38 ??Pathologist Performed at: ??[facility] Dept. of Pathology, [place], [place] SYNOPTIC Specimen Parts: ??A Specimen ? [...] 2020 Release ADDITIONAL STUDIES Whole slide scan: [id number] SPECIMEN(S) SUBMITTED A - Left Kidney, biopsy (1) CLINICAL INFORMATION Renal mass SPECIMEN PROCESSING A - Labeled/Fixative: Left kidney, fresh. Quantity/Size/Weight : Single, 21 x 18 x 10 cm, 2453 g. SPECIMEN DESCRIPTION Resection Specimen: Intact, left, nephrectomy. LESION Size: 17 x 16 x 9.5 cm. Location: Obliterates the mid and lower pole Color: [place]-yellow to red-brown and hemorrhagic. Consistency: soft. Contour: [...] The perinephric soft tissues inked black. Sections/Processing: Gastroenterology Manager sections in 20 cassettes as follows: ?A1: ??Ureter margin ?A2: ??Vascular margins ?A3: ??Longitudinal section of tumor within renal vein ?A4-A5: ??Tumor within renal pelvis ?A6-A7: ??Tumor in relation to hilar fat margin ?A8-A10: ??Tumor in relation to perinephric fat margin ?A11-A12: ??Tumor in relation to Gerota's fascia ?A13: ??Tumor within renal sinus fat ?A14: ??Tumor with ??adjacent parenchyma ?A15-A16: ??Gastroenterology Manager areas of tumor heterogeneity ?A17: ??Uninvolved upper pole ?A18-A19: ??Single bisected perihilar lymph node in each cassette ?A20: ??Single intact candidate perihilar lymph node ??ajw 07/02/2021 11:14 AM EST [facility] SPECIMEN FROM KIDNEY / Unknown 06/23/2021 11:37 AM EST 06/23/2021 11:37 AM EST Miles Hou MD PATHOLOGY/CYTOLOGY ORDERABLES Performing Organization Address [facility]/ZIP Co de Phone Number [facility] [place] [address] * Specimen to Pathology (06/23/2021 11:37 AM EST) AP Specimen 06/23/2021 11:3 7 AM EST 06/23/2021 11:37 AM EST Narrative [facility] - 06/23/2021 11:37 AM EST Specimen requisition ordered. ??Separate Pathology report to follow Miles Hou MD PATHOLOGY/CYTOLOGY ORDERABLES Performing Organization Address City/[facility] Co de Phone Number [facility] [place] [address] * (ABNORMAL) BLOOD GAS 2 ARTERIAL (06/23/2021 8:42 AM EST) pH, Arterial 7.42 7.35 - 7.45 [facility] PCO2, Arterial 36 35 - 45 mmHg [facility] PO2, Arterial 245(H) 85 - 104 mmHg [facility] Bicarbonate, Arterial 23.1 20.0 - 26.0 mmol/L [facility] Base Excess, Arterial -1.3 -3.0 - 3.0 mmol/L [facility] Hgb Blood Gas 11.1(L) 13.7 - 16.5 g/dL [facility] Oxyhemoglobin, Arterial 99.0(H) 94.0 - 97.0 % [facility] Carboxyhemoglob in, Arterial 0.1 % [facility] Comment: Nonsmokers: 0.5-1.5% COHB Smokers: Variable, but usually less than 10% Toxic: 20-30% COHB Lethal: Greater than 60% COHB Methemoglobin, Arterial 0.3 <=1.5 % [facility] Na Whole Blood 136 135 - 145 mmol/L [facility] K Whole Blood 4.0 3.5 - 5.0 mmol/L [facility] Comment: Please note: Patients with WBC >100,000 may have falsely elevated Potassium levels. Contact the Clinical Chemistry Laboratory if there are any questions. ICa Whole Blood 1.29 1.15 - 1.33 mmol/L [facility] Comment: Note: ??Total bilirubin higher than 20 mg/dL may lead to falsely low ionized calcium. CL Whole Blood 106 98 - 107 mmol/L [facility] Gluc Whole Bld 103 65 - 199 mg/dL [facility] Comment:Diabetes: >=200 mg/d L plus symptoms. Lactate WB 1.1 0.5 - 2.2 mmol/L [facility] FIO2 Art 60 % [facility] PF Ratio Art 408 [facility] Blood 06/23/2021 8:42 AM EST 06/23/2021 8:42 AM EST Miles Hou MD POINT OF CARE TEST ORDERABLES [facility] [place] [address] * (ABNORMAL) Hemogram (06/23/2021 8:30 AM EST) White Blood Cell 5.8 4.0 - 9.5 x10(3)/mc L [facility] Red Blood Cell 3.90(L) 4.58 - 5.54 x10(6)/mc L [facility] Hemoglobin 10.7(L) 13.7 - 16.5 g/dL [facility] Hematocrit 33.3(L) 40.5 - 48.5 % [facility] Comment: This result has been called to EMERALD WATTS by PIOTR HEBERT on 06 23 2021 at 0900, and has been read back. Mean Cell Volume 85.4 82.9 - 93.1 fL [facility] Mean Cell Hemoglobin 27.4(L) 27.5 - 32.1 pg [facility] Mean Cell Hemoglobin Concentration 32.1 32.0 - 35.7 g/dL [facility] Platelet 190 145 - 357 x10(3)/mc L [facility] RDW Standard Deviation 45.9(H) 36.0 - 45.0 fL [facility] RDW coefficient of variation 14.7(H) 11.4 - 13.8 % [facility] Mean Platelet Volume 9.9 7.6 - 12.9 fL [facility] NRBC% auto 0.0 % [facility] NRBC Absolute 0.000 0.000 - 0.000 x10(3)/mc L [facility] Blood 06/23/2021 8:30 AM EST 06/23/2021 8:53 AM EST Narrative Resulting Agency Comment Spec In Lab Erica Alves MD HEMATOLOGY ORDERABLE S [facility] [place] [address] * Prepare RBC (06/23/2021 8:25 AM EST) Dispensed? Yes [facility] Blood 06/23/2021 8:25 AM EST 06/23/2021 8:25 AM EST Miles F Sverrisson MD BLOOD BANK PRODUCT ORDERABLES [facility] [place] [address] * XR Fluoro No Rad <1Hr - OR Use (06/23/2021 7:42 AM EST) Narrative Dicom, Auditing User - 06/23/2021 7:57 AM EST This exam is auto-finalizing. No interpretation was done. Miles Hou MD IMG FLUORO ORDERAB LES * Type and Screen Validity (06/23/2021 7:15 AM EST) T&S only valid at [facility] LABORATORY Comment:This Type and Screen result is only valid at the [facility] Blood 06/23/2021 7:15 AM EST 06/23/2021 7:32 AM EST Narrative Resulting Agency Comment Spec In Lab Miles Hou MD BLOOD BANK LAB ORD ERABLES [facility] [place] [address] * Antibody screen (06/23/2021 7:15 AM EST) Ab Screen Interp Negative [facility] Expires at [id number] on: 06/26/2021 [facility] Blood 06/23/2021 7:15 AM EST 06/23/2021 7:32 AM EST Narrative Resulting Agency Comment Spec In Lab Miles Hou MD BLOOD BANK LAB ORD ERABLES [facility] [place] [address] * ABO/Rh Typing (06/23/2021 7:15 AM EST) ABORH Type A Pos [facility] Blood 06/23/2021 7:15 AM EST 06/23/2021 7:32 AM EST Narrative Resulting Agency Comment Spec In Lab Miles Hou MD BLOOD BANK LAB ORD ERABLES Performing Organization Address [facility] Co de Phone Number [facility] [place] [address] * Red Tube Hold (06/23/2021 7:10 AM EST) Red Hold Sample in lab. [facility] Blood No Charge / Unknown 06/23/2021 7:10 AM EST 06/23/2021 8:06 AM EST Miles Hou MD CHEMISTRY ORDERABL ES Performing Organization Address [facility] Co de Phone Number [facility] [place] [address] * Differential, Automated (06/23/2021 7:10 AM EST) Neutrophil % 70.9 % [facility] Neutrophil Absolute 5.93 1.70 - 6.10 x10(3)/[facility] LABORATORY Lymph % 17.1 % [facility] Lymphocytes Abs 1.4 0.9 - 3.2 x10(3)/[facility] LABORATORY Monocyte % 7.8 % [facility]OR[facility]ORY Monocyte Abs 0.6 0.3 - 0.9 x10(3)/[facility] LABORATORY Eos % 2.8 % [facility] Eosinophils Abs 0.2 0.0 - 0.4 x10(3)/[facility] LABORATORY Basophil % 1.2 % [facility] Baso Absolute 0.1 0.0 - 0.1 x10(3)/[facility] LABORATORY Immature Gran % 0.20 % [facility] Comment: Immature granulocytes(IG's)percentage and absolute count will include metamyelocytes, myelocytes, and promyelocytes. Blood smears from CBCs yielding IG's will be scanned manually for concordance. If this scan disagrees with the automated IG or if promyelocytes are noted, a manual differential will be performed. Immature Gran Absolute 0.02 0.00 - 0.04 x10(3)/mcL [facility] Blood 06/23/2021 7:10 AM EST 06/23/2021 8:04 AM EST Narrative Resulting Agency Comment Spec In Lab Miles Hou MD HEMATOLOGY ORDERAB LES [facility] [place] [address] * (ABNORMAL) Hemogram (06/23/2021 7:10 AM EST) White Blood Cell 8.4 4.0 - 9.5 x10(3)/mc L [facility] Red Blood Cell 2.42(L) 4.58 - 5.54 x10(6)/[facility] LABORATORY Hemoglobin 6.7(L) 13.7 - 16.5 g/dL [facility] Hematocrit 20.9(L) 40.5 - 48.5 % [facility] Comment: This result has been called to EMERALD WATTS by Milton Godinez on 06 23 2021 at 0821, and has been read back. Mean Cell Volume 86.4 82.9 - 93.1 fL [facility] Mean Cell Hemoglobin 27.7 27.5 - 32.1 pg [facility] Mean Cell Hemoglobin Concentration 32.1 32.0 - 35.7 g/dL [facility] Platelet 279 145 - 357 x10(3)/mc L [facility] RDW Standard Deviation 47.1(H) 36.0 - 45.0 [facility] LABORATORY RDW coefficient of variation 14.8(H) 11.4 - 13.8 % [facility] Mean Platelet Volume 10.1 7.6 - 12.9 [facility] LABORATORY NRBC% auto 0.0 % [facility] NRBC Absolute 0.000 0.000 - 0.000 x10(3)/mc L [facility] Blood 06/23/2021 7:10 AM EST 06/23/2021 8:04 AM EST Narrative Resulting Agency Comment Spec In Lab Miles Hou MD HEMATOLOGY ORDERAB LES Performing Organization Address City/State/[facility] Co de Phone Number [facility] [place] [address] * (ABNORMAL) Comprehensive metabolic panel (non-fasting) (06/23/2021 7:10 AM EST) Glucose 93 65 - 199 mg/dL [facility] Comment:Diabetes: >=200 mg/d L plus symptoms Blood Urea Nitrogen 20 10 - 20 mg/dL [facility] Creatinine 1.28 0.80 - 1.50 mg/dL [facility] Sodium 137 135 - 145 mmol/L [facility] Potassium 4.2 3.5 - 5.0 mmol/L [facility] Comment: Please note: ??Patients with WBC >100,000 may have falsely elevated Potassium levels. ??For accurate Potassium quantification in these patients send serum separator tube (gold top) for subsequent determinations. ??Contact the Clinical Chemistry Laboratory if there are any questions. Chloride 106 98 - 107 mmol/L [facility] Carbon Dioxide 21(L) 22 - 31 mmol/L [facility] Anion Gap 10 5 - 15 mmol/L [facility] Calcium 10.0 8.5 - 10.5 mg/dL [facility] Protein, Total 7.3 6.1 - 8.0 g/dL [facility] Albumin 3.7 3.2 - 5.2 g/dL [facility] Aspartate Aminotransferase 20 0 - 39 unit/L [facility] Alanine Aminotransferase 30 0 - 55 unit/L [facility] Alkaline Phosphatase 129 40 - 130 unit/L [facility] [...] Lab Miles Hou MD CHEMISTRY ORDERABL ES [facility] [place] [address] * ABORH Recheck Status (06/23/2021 7:05 AM EST) ABORH Recheck Order Order Placed [facility] ABORH Type Recheck Complete [facility] Blood 06/23/2021 7:05 AM EST 06/23/2021 7:09 AM EST Narrative Resulting Agency Comment Spec In Lab Dawn Tello MD BLOOD BANK LAB ORDER RADHA [facility] [place] [address] * Antibody screen (06/23/2021 7:05 AM EST) Ab Screen Interp Not Performed [facility] Expires at [id number] on: 06/26/2021 [facility] Blood 06/23/2021 7:05 AM EST 06/23/2021 7:09 AM EST Narrative Resulting Agency Comment Spec In Lab Dawn Tello MD BLOOD BANK LAB ORDER RADHA Performing Organization Address [facility] Co de Phone Number [facility] [place] [address] * EKG 12 Lead (06/23/2021 7:04 AM EST) Ventricular rate 76 BPM MUSE SYSTEM Atrial Rate 76 BPM MUSE SYSTEM P-R Interval 228 ms MUSE SYSTEM QRS Duration 90 ms MUSE SYSTEM Q-T Interval 384 ms MUSE SYSTEM QTC Calculated (Bezet) 432 ms MUSE SYSTEM Calculated P [place] 31 degrees MUSE SYSTEM Calculated R [place] 33 degrees MUSE SYSTEM Calculated T [place] 32 degrees MUSE SYSTEM INTERPRETATION Sinus rhythm with 1st degree A-V block Left atrial enlargement Septal infarct (cited on or before 23-JUN-2021) Abnormal ECG When compared with ECG of 23-JUN-2021 07:03, (unconfirmed) No significant change was found Confirmed by fellow MD Orellana Thara ([id number]) on 06/23/2021 2:47:30 PM Confirmed by MD Jt, Mario ([id number]) on 06/23/2021 4:10:38 PM MUSE SYSTEM 06/23/2021 7:04 AM EST 06/23/2021 4:10 PM EST Unknown ECG ORDERABLES Performing Organization Address [facility]/ZIP Co de Phone Number MUSE SYSTEM * EKG 12 Lead (06/23/2021 7:03 AM EST) Ventricular rate 77 BPM MUSE SYSTEM Atrial Rate 77 BPM MUSE SYSTEM P-R Interval 228 ms MUSE SYSTEM QRS Duration 92 ms MUSE SYSTEM Q-T Interval 384 ms MUSE SYSTEM QTC Calculated (Bezet) 434 ms MUSE SYSTEM Calculated P [place] 24 degrees MUSE SYSTEM Calculated R [place] 33 degrees MUSE SYSTEM Calculated T [place] 30 degrees MUSE SYSTEM INTERPRETATION Sinus rhythm with 1st degree A-V block Septal infarct , age undetermined Abnormal ECG No previous ECGs available Confirmed by fellow MD Orellana Thara ([id number]) on 06/23/2021 1:55:29 PM Confirmed by MD [...] Unit) documented in this encounter Care Teams Brake Engineer Relationship Specialty Start Date End Date Lisbet Solitario MD [address] [place] [address] PCP - General Family Medicine 01/30/16 08/19/21 documented as of this encounter
--- OUTSIDE RECORDS SUMMARY | 2024-03-09 17:00 | XMS_ITS | Encounter Summary ---
Author Organization [facility] Address [facility] [place] [address] Care Team Providers Care Marketing Production Manager Name Role Phone Lisbet Solitario MD Primary Care Provider [phone] Encounter Details Date Type Department Care Team (Late st Contact Info) Description 06/02/2021 Telephone Urology at [facility] [place] [id number] Jordan Hou MD [facility] [place] [address] Social History Tobacco Use Types Packs/Day Years [...] like a call back to discuss. PHONE: [phone] documented in this encounter Plan of Treatment Upcoming Encounters Date Type Department Care Team (Late st Contact Info) Description 03/29/2024 10:30 AM EST Laboratory Appointment Lab at [facility] Hematology Oncology [address] [place] [id number] 03/29/2024 12:[address] [place] [address] Albino Bartholomew MD [facility] DR [place] [address] 04/05/2024 10:00 AM EST Office Visit Hematology [place] [address] Albino Bartholomew MD [facility] DR [place] [address] documented as of this encounter Visit Diagnoses Not on filedocumented in this encounter Care Teams Marketing Production Manager Relationship Specialty Start Date End Date Lisbet Solitario MD [address] [place] [address] PCP - General Family Medicine 01/30/16 08/19/21 documented as of this encounter
--- OUTSIDE RECORDS SUMMARY | 2024-03-09 17:00 | XMS_ITS | Encounter Summary ---
Author Organization [facility] Address [address] [place] [address] Care Team Providers Care Supervisor Felting Name Role Phone Unavailable Primary Care Provider Unavailabl e Encounter Details Date Type Department Care Team (Late st Contact Info) Description 03/13/2021 Lab Requisition [facility] Pathology & Laboratory Medicine - [facility] [address] [place] [address] Outr Resulting Lab, Provider Social History Tobacco [...] 0.0 - 4.5 ng/mL 03/13/2021 18:24 EST [facility] Blood VENOUS BLOOD / Unknown 03/12/2021 9:35 EST 03/13/2021 17:25 EST Narrative [facility] - 03/13/2021 18:24 EST NOTE: Serum PSA concentration should not be interpreted as absolute evidence for the presence or absence of malignant disease. Assayed on Siemens ADVIA Centaur XPT using chemiluminescent technology.??Values obtained by using different assay methods cannot be used interchangeably. Provider Outr Resulting Lab CHEMISTRY & BLOOD GAS ORDERABLES [facility] [address] [place] [address] documented in this encounter Visit Diagnoses Not on filedocumented in this encounter
--- OUTSIDE RECORDS SUMMARY | 2024-03-09 17:00 | XMS_ITS | Encounter Summary ---
Author Organization [facility] [place] [address] Care Team Providers Care Inside Account Representative Name Role Phone Lisbet Solitario MD Primary Care Provider [phone] Reason for Visit * Reason Comments Skin Check Encounter Details Date Type Department Care Team (Late st Contact Info) Description 03/01/2018 8:15 AM EDT Office Visit Dermatology at [facility] [address] [place] [address] Oli Winter MD [address] [facility] [place] [place] [address] Folliculitis; Rodríguez angioma; Seborrheic keratosis; Multiple benign [...] the original note were not included. Dermatology [place], [place] FOLLOW-UP Patient is established to this [...] Oli Winter MD FAAD Section of Dermatology [facility] documented in this encounter Plan of Treatment Upcoming Encounters Date Type Department Care Team (Late st Contact Info) Description 03/29/2024 10:30 AM EST Laboratory Appointment Lab at [facility] Hematology Oncology [address] [place] [address] 03/29/2024 12:[address] [place] [address] Albino Bartholomew MD [facility] [place] [address] 04/05/2024 10:00 AM EST Office Visit Hematology [place] [address] Albino Bartholomew MD [facility] [address] [place] [address] documented as of this encounter Visit Diagnoses Diagnosis Folliculitis Other specified disease of hair and hair follicles Rodríguez angioma Nevus, non-neoplastic Seborrheic keratosis Other seborrheic keratosis Multiple benign nevi Benign neoplasm of skin, site unspecified Family history of melanoma Family history of other specified malignant neoplasm documented in this encounter Care Teams Inside Account Representative Relationship Specialty Start Date End Date Lisbet Solitario MD [address] [place] [address] PCP - General Family Medicine 01/30/16 08/19/21 documented as of this encounter
--- OUTSIDE RECORDS SUMMARY | 2024-03-09 17:00 | XMS_ITS | Encounter Summary ---
Author Organization [facility] Address [facility] [place] [address] Care Team Providers Care Emergency Management Specialist Name Role Phone Meryl Solitario MD Primary Care Provider [phone] Reason for Visit * Reason Comments Skin Check * Consultation (Routine) - Specialty Diagnoses / Procedures Referred By Burak mcnair Referred To Contact Dermatology Diagnoses Skin check family history malignant melanoma Meryl Solitario MD [address] [place] [address] [facility] Dermatology [address] [place] [address] Referral ID Status Reason Start Date Expiration Date V isits Requested Visits Authorized [id number] Consult, Test & Treat Connection Center 01/30/2016 01/29/2017 1 1 Encounter Details Date Type Department Care Team (Late st Contact Info) Description 02/10/2016 10:45 AM EDT Office Visit Dermatology at [facility] [address] [place] [address] Ernst Goel MD [facility] [address] [place] [address] Sebaceous hyperplasia; SK (seborrheic keratosis); [...] history of skin disease 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 Ernst Goel MD Rubber Goods Cutter Finisher of Dermatology, Department of Surgery [facility] cc: MERYL SOLITARIO MD documented in this encounter Plan of Treatment Upcoming Encounters Date Type Department Care Team (Late st Contact Info) Description 03/29/2024 10:30 AM EST Laboratory Appointment Lab at [facility] Hematology Oncology [address] [place] [address] 03/29/2024 12:[address] [place] [place] [address] Albino Bartholomew MD [facility] DR HEMATOLOG[place] [address] 04/05/2024 10:00 AM EST Office Visit [place]ematology [place] [address] Albino Bartholomew MD [facility] DR HEMATOLOG[place] [address] documented as of this encounter Visit Diagnoses Diagnosis Sebaceous hyperplasia Other specified disease of sebaceous glands SK (seborrheic keratosis) Other seborrheic keratosis Multiple benign nevi Benign neoplasm of skin, site unspecified Rodríguez angioma Nevus, non-neoplastic documented in this encounter Care Teams Emergency Management Specialist Relationship Specialty Start Date End Date Meryl Solitario MD [address] [place] [address] PCP - General Family Medicine 01/30/16 08/19/21 documented as of this encounter
--- OUTSIDE RECORDS SUMMARY | 2024-03-09 17:00 | XMS_ITS | Encounter Summary ---
Author Organization [facility] Address [facility] [place] [address] Care Team Providers Care Oil Field Equipment Mechanic Name Role Phone Lisbet Solitario MD Primary Care Provider [phone] Encounter Details Date Type Department Care Team (Late st Contact Info) Description 05/21/2021 Telephone Urology at [facility] [place] [address] Jordan Hou MD [facility] [place] [address] Social History Tobacco Use Types Packs/Day Years [...] [facility] Hemat[facility] Oncology [address] [place] [address] 03/29/2024 12:[address] [place] [address] Albino Bartholomew MD [facility] DR [place] [address] 04/05/2024 10:00 AM EST Office Visit Hematology [place] [address] Albino Bartholomew MD [facility] DR [place] [address] documented as of this encounter Visit Diagnoses Not on filedocumented in this encounter Care Teams Oil Field Equipment Mechanic Relationship Specialty Start Date End Date Lisbet Solitario MD [address] [place] [address] PCP - General Family Medicine 01/30/16 08/19/21 documented as of this encounter
--- OUTSIDE RECORDS SUMMARY | 2024-03-09 17:00 | XMS_ITS | Encounter Summary ---
Author Organization [facility] Address [facility] [place] [address] Care Team Providers Care Licensed Funeral Director And Embalmer Name Role Phone Lisbet Solitario MD Primary Care Provider [phone] Reason for Visit * Reason Comments Skin Check Encounter Details Date Type Department Care Team (Late st Contact Info) Description 05/15/2019 1:15 PM EST Office Visit Dermatology at [facility] [address] [place] [address] Oli Winter MD [address] [facility] [place] [address] Plantar wart; Multiple benign nevi; Seborrheic keratoses; [...] note were not included. Dermatology Dermatology at [facility] FOLLOW-UP Chief Complaint: Skin exam History [...] Oli Winter MD FAAD Section of Dermatology [facility] documented in this encounter Plan of Treatment Upcoming Encounters Date Type Department Care Team (Late st Contact Info) Description 03/29/2024 10:30 AM EST Laboratory Appointment Lab at [facility] Hematology Oncology [address] [place] [address] 03/29/2024 12:[address] [place] [address] [facility] [place] [address] 04/05/2024 10:00 AM EST Office Visit Hematology [place] [address] [facility] [address] [place] [address] documented as of this encounter Visit Diagnoses Diagnosis Plantar wart Multiple benign nevi Benign neoplasm of skin, site unspecified Seborrheic keratoses Rodríguez angioma Nevus, non-neoplastic Family history of melanoma Family history of other specified malignant neoplasm documented in this encounter Care Teams Licensed Funeral Director And Embalmer Relationship Specialty Start Date End Date Lisbet Solitario MD [address] [place] [address] PCP - General Family Medicine 01/30/16 08/19/21 documented as of this encounter
--- OUTSIDE RECORDS SUMMARY | 2024-03-09 17:00 | XMS_ITS | Encounter Summary ---
Author Organization [facility] Address [facility] [place] [address] Care Team Providers Care Critical Care Specialist Name Role Phone Lisbet Solitario MD Primary Care Provider [phone] Encounter Details Date Type Department Care Team (Late st Contact Info) Description 05/28/2021 Telephone Urology at [facility] [place] [address] Jordan Hou MD [facility] [place] [address] Social History Tobacco Use Types Packs/Day Years [...] - 05/28/2021 8:51 AM EST Radiology at [facility] calling in regards to patient, the radiologist [...] [facility] Hematology Oncology [address] [place] [address] 03/29/2024 12:[address] [place] [address] Albino Bartholomew MD [facility] DR [place] [address] 04/05/2024 10:00 AM EST Office Visit [place]ology [place] [address] Albino Bartholomew MD [facility] [address] [place] [address] documented as of this encounter Visit Diagnoses Not on filedocumented in this encounter Care Teams Critical Care Specialist Relationship Specialty Start Date End Date Lisbet Solitario MD [address] [place] [address] PCP - General Family Medicine 01/30/16 08/19/21 documented as of this encounter
--- OUTSIDE RECORDS SUMMARY | 2024-03-09 17:00 | XMS_ITS | Encounter Summary ---
Author Organization [facility] Address [address] [place] [address] Care Team Providers Care Hide Inspector And Sorter Name Role Phone Unavailable Primary Care Provider Unavailabl e Encounter Details Date Type Department Care Team (Late st Contact Info) Description 03/17/[address] [facility] Pathology & Laboratory Medicine - [facility] [address] [place] [address] Outr Resulting Lab, Provider Social History Tobacco [...] PSA 1.3 <=4.5 ng/mL 03/17/2022 23:14 EST [facility] Blood VENOUS BLOOD / Unknown 03/17/2022 7:55 EST 03/17/2022 21:23 EST Narrative [facility] - 03/17/2022 23:14 EST NOTE: Serum PSA concentration should not be interpreted as absolute evidence for the presence or absence of malignant disease. Assayed on Siemens ADVIA Centaur XPT using chemiluminescent technology.??Values obtained by using different assay methods cannot be used interchangeably. Provider Outr Resulting Lab CHEMISTRY & BLOOD GAS ORDERABLES [facility] [address] [place] [address] documented in this encounter Visit Diagnoses Not on filedocumented in this encounter
--- OUTSIDE RECORDS SUMMARY | 2024-03-09 17:00 | XMS_ITS | Encounter Summary ---
Author Organization [facility] [place] [address] Care Team Providers Care Accounting Clerks Supervisor Name Role Phone Lisbet Solitario MD Primary Care Provider [phone] Encounter Details Date Type Department Care Team (Late st Contact Info) Description 06/09/2021 11:30 AM EST TH Visit (TeleHealth) [place] [address] Social History Tobacco Use Types Packs/Day Years [...] [facility] Hematology Oncology [address] [place] [address] 03/29/2024 12:[address] [place] [address] Albino Bartholomew MD [facility] DR HEMATOLOGY [place] [address] 04/05/2024 10:00 AM EST Office Visit [place]ology [place] [address] Albino Bartholomew MD [facility] DR HEMATOLOGY [place] [address] documented as of this encounter Visit Diagnoses Not on filedocumented in this encounter Care Teams Accounting Clerks Supervisor Relationship Specialty Start Date End Date Lisbet Solitario MD [address] [place] [address] PCP - General Family Medicine 01/30/16 08/19/21 documented as of this encounter
--- OUTSIDE RECORDS SUMMARY | 2024-03-09 17:00 | XMS_ITS | Encounter Summary ---
Author Organization [facility] Address [facility] [place] [address] Care Team Providers Care Home Therapy Teacher Name Role Phone Lisbet Solitario MD Primary Care Provider [phone] Encounter Details Date Type Department Care Team (Late st Contact Info) Description 06/02/2021 [place] [address] Jordan Hou MD [facility] [place] [address] Social History Tobacco Use Types Packs/Day Years [...] [facility] On[facility] [address] [place] [address] 03/29/2024 12:[address] [place] [address] Albino Bartholomew MD [facility] DR [place] [address] 04/05/2024 10:00 AM EST Office Visit Hematology [place] [address] Albino Bartholomew MD [facility] [place] [address] documented as of this encounter Visit Diagnoses Not on filedocumented in this encounter Care Teams Home Therapy Teacher Relationship Specialty Start Date End Date Lisbet Solitario MD [address] [place] [address] PCP - General Family Medicine 01/30/16 08/19/21 documented as of this encounter
--- OUTSIDE RECORDS SUMMARY | 2024-03-09 17:00 | XMS_ITS | Encounter Summary ---
Author Organization [facility] Address [facility] [place] [address] Care Team Providers Care Learning Solutions Specialist Name Role Phone Lisbet Solitario MD Primary Care Provider [phone] Encounter Details Date Type Department Care Team (Late st Contact Info) Description 05/29/2021 8:30 PM EST Ancillary Procedure Radiology Library [place] [facility] [address] Jordan Hou MD [facility] [place] [address] Social History Tobacco Use Types Packs/Day Years [...] at [facility] Hematology Oncology [address] [place] [address] 03/29/2024 12:[address] [place] [address] Albino Bartholomew MD [facility] [place] [address] 04/05/2024 10:00 AM EST Office Visit Hematology [place] [address] Albino Bartholomew MD [facility] [address] [place] [address] documented as of this encounter Procedures Procedure Name Priority Date/Time Associated Diagnosis Comments FILM LIBRARY STORAGE ONLY CT CHEST Routine 05/29/2021 8:29 PM EST documented in this encounter Results * Film Library- Storage Only CT Chest (05/29/2021 8:29 PM EST) Narrative [facility] - 05/29/2021 8:29 PM EST This exam is auto-finalizing. It's purpose is for storage only. Jordan Hou MD IMG FILM LIBRARY O RDERABLES [place], [place] documented in this encounter Visit Diagnoses Not on filedocumented in this encounter Care Teams Learning Solutions Specialist Relationship Specialty Start Date End Date Lisbet Solitario MD [address] [place] [address] PCP - General Family Medicine 01/30/16 08/19/21 documented as of this encounter
--- OUTSIDE RECORDS SUMMARY | 2024-03-09 17:00 | XMS_ITS | Encounter Summary ---
Author Organization [facility] Address [facility] [place] [address] Care Team Providers Care Echo Technologist Name Role Phone Lisbet Solitario MD Primary Care Provider [phone] Encounter Details Date Type Department Care Team (Late st Contact Info) Description 05/29/2021 Telephone [place] [phone] Brittany Steele Social History Tobacco Use Types [...] ASK: TRAVEL ???Have you travelled outside of [place] ([place], [place], [place], [place], [place], [place]) in the past 14 days??? 2. ASK: [...] Transfer patient to the Covid-19 Hotline Number ([phone]) for further instructions. If 'No' to all of the questions above Is this the first test for Covid 19 No If no, please list date of previous test, result, and type of test (Molecular, Antigen, Antibody orunknown): October 2019, a few home tests, all Neg Resides in Nursing/nursing home or other residential setting No Employee or Household Member of Employee No Healthcare Worker No Telephone call placed/received to schedule Covid 19 testing with patient. Ordering provider: Dr. Jordan Hou Testing Facility: [facility] Date of Testin06/20/2021 Time of Testin:00pm Symptoms: [...] [facility] Hematology Oncology [address] [place] [address] 03/29/2024 12:[address] [place] [address] Albino Bartholomew MD [facility] DR [place] [address] 04/05/2024 10:00 AM EST Office Visit Hematology [place] [address] Albino Bartholomew MD [facility] DR [place] [address] documented as of this encounter Visit Diagnoses Not on filedocumented in this encounter Care Teams Echo Technologist Relationship Specialty Start Date End Date Lisbet Solitario MD [address] [place] [address] PCP - General Family Medicine 01/30/16 08/19/21 documented as of this encounter
--- OUTSIDE RECORDS SUMMARY | 2024-03-09 17:00 | XMS_ITS | Encounter Summary ---
Author Organization [facility] Address [facility] [place] [address] Care Team Providers Care Extract Wringer Name Role Phone Lisbet Solitario MD Primary Care Provider [phone] Reason for Visit * Auth/Cert Specialty Diagnoses / Procedures Referred By Burak t Referred To Contact Diagnoses Renal mass RENAL MASS Procedures PRO REMV KIDNEY, RADICAL PRO CYSTOURETHROSCOPY @NEPHRECTOMY, RADICAL W\REG LYMPHADENECTOMY &\OR VENA CAVA THROMBECTOMY (WRVU 23.81) CYSTO, CYSTOURETHROSCOPY, DIAGNOSTIC (WRVU 2.23) Referral ID Status Reason Start Date Expiration Date Visits Re quested Visits Authorized [id number] 1 1 Encounter Details Date Type Department Care Team (Late st Contact Info) Description 06/23/2021 7:36 AM EST Anesthesia Event [place] [address] Erica Alves MD [facility] [place] [address] Caryn Portillo MD [facility] [place] [address] Anesthesia Record Procedure Summary Procedure Name Responsible Anesthesiologist Anesthesia Start Time Anesthesia Stop Time @NEPHRECTOMY, RADICAL W\REG LYMPHADENECTOMY &\OR VENA CAVA THROMBECTOMY ([facility]) (Left: Flank) Erica Alves MD 06/23/21 [...] 0725; metacarpal vein (top of hand), left; imuq-gka-yjirxc catheter system; 20 gauge; Remigio; 06/27/21; 1125 [...] 0815; median vein (underside of arm), right; errz-esv-xxceap catheter system; 20 gauge; MD Long; 06/27/21; [...] Procedure Summary Date: 06/23/21 Room / Location: [address] MAIN OR Anesthesia Start: 0736 Anesthesia Stop: 1210 Procedures: @NEPHRECTOMY, RADICAL W\REG LYMPHADENECTOMY &\OR VENA CAVA THROMBECTOMY (WRVU 23.81) (Left Flank) CYSTO, CYSTOURETHROSCOPY, DIAGNOSTIC (WRVU 2.23) (N/A Ureter) Diagnosis: (RENAL MASS) Surgeons: Jordan Hou MD Responsible Provider: Erica Alves MD Anesthesia Type: general ASA Status: 2 All Anesthesia Providers: Anesthesiologist: Erica Alves MD Air Transport Professionals: Caryn Portillo MD Vitals Value Taken Time BP 130/96 06/23/21 1203 Temp Pulse 57 06/23/21 1209 Resp 10 06/23/21 1209 SpO2 95 % 06/23/21 1209 Pain Level Vitals shown include unvalidated device data. Patient Location: PACU/[facility] Level of Consciousness: Awake and Alert Pain [...] PA/Lateral dye study (non- subdural, non-vascular, non-intrathecal). Resident/LOCKER PLANT ATTENDANT: Kieran Chua MD Second Resident/LOCKER PLANT ATTENDANT: SRNA: Fellow: Attending Physician: Lindy Gudino MD [...] [facility] Hematology Oncology [address] [place] [address] 03/29/2024 12:[address] [place] [place] [address] Albino Bartholomew MD [facility] DR HEMATOLOGY [place] [address] 04/05/2024 10:00 AM EST Office Visit [place] [address] Albino Bartholomew MD [facility] DR HEMATOLOGY [place] [address] documented as of this encounter Procedures Procedure [...] PA/Lateral dye study (non-subdural, non-vascular, non-intrathecal). ?? Resident/LOCKER PLANT ATTENDANT: ? Kieran Chua MD Second Resident/LOCKER PLANT ATTENDANT: SRNA: ? Fellow: ? Attending Physician: ? Lindy Gudino MD ~~~~~~~~~~~~~~~~~~~~~~~~~~~~~~~~~~~~~~~~~~~~~~~~~~~~~~~~~~~~ Lindy Gudino MD BLOOD OR BLOOD BANK TECHNICIAN [facility] documented in this encounter Visit Diagnoses Not on filedocumented in this encounter Administered Medications Inactive Administered Medications - up to 3 most recent administrations Medication Order MAR Action Action Date Dose Rate Site ceFAZolin (Ancef) 2 g in dextrose 5% 100 mL infusion 2 g, Intravenous, ELEMENTARY MATH TUTOR TO O.R., 1 dose, On Wed06/23/21 at [...] mg documented in this encounter Care Teams Extract Wringer Relationship Specialty Start Date End Date Lisbet Solitario MD [address] [place] [address] PCP - General Family Medicine 01/30/16 08/19/21 documented as of this encounter
--- OUTSIDE RECORDS SUMMARY | 2024-03-09 17:00 | XMS_ITS | Encounter Summary ---
Author Organization [facility] Address [address] [place] [address] Care Team Providers Care Advertising Agent Name Role Phone Unavailable Primary Care Provider Unavailabl e Encounter Details Date Type Department Care Team (Late st Contact Info) Description 03/27/[address] [facility] Pathology & Laboratory Medicine - [facility] [address] [place], [place] [address] Outr Resulting Lab, Provider Social History Tobacco [...] 0.0 - 4.5 ng/mL 04/24/2020 10:37 EST [facility] Blood VENOUS BLOOD / Unknown 03/11/2020 8:20 EST 04/23/2020 8:14 EST Narrative [facility] - 04/24/2020 10:37 EST NOTE: Serum PSA concentration should not be interpreted as absolute evidence for the presence or absence of malignant disease. Assayed on Siemens ADVIA Centaur XPT using chemiluminescent technology.??Values obtained by using different assay methods cannot be used interchangeably. Provider Outr Resulting Lab CHEMISTRY & BLOOD GAS ORDERABLES [facility] [address] [place] [address] documented in this encounter Visit Diagnoses Not on filedocumented in this encounter
--- OUTSIDE RECORDS SUMMARY | 2024-03-09 17:00 | XMS_ITS | Encounter Summary ---
Author Organization [facility] Address [address] [place] [address] Care Team Providers Care Director Of Medical Review Name Role Phone Unavailable Primary Care Provider Unavailabl e Encounter Details Date Type Department Care Team (Late st Contact Info) Description 03/30/2023 Lab Requisition [facility] Pathology & Laboratory Medicine - [facility] [address] [place] [address] Outr Resulting Lab, Provider Social History Tobacco [...] PSA 1.7 <=4.5 ng/mL 03/30/2023 22:36 EST [facility] Blood VENOUS BLOOD / Unknown 03/30/2023 8:40 EST 03/30/2023 21:49 EST Narrative [facility] - 03/30/2023 22:36 EST NOTE: Serum PSA concentration should not be interpreted as absolute evidence for the presence or absence of malignant disease. Assayed on Siemens ADVIA Centaur XPT using chemiluminescent technology.??Values obtained by using different assay methods cannot be used interchangeably. Provider Outr Resulting Lab CHEMISTRY & BLOOD GAS ORDERABLES [facility] [address] [place] [address] documented in this encounter Visit Diagnoses Not on filedocumented in this encounter
--- OUTSIDE RECORDS SUMMARY | 2024-03-09 17:00 | XMS_ITS ---
[place] [address] Care Team Providers Care Concrete Block Plant Supervisor Name Role Phone Juan Dempsey MD Primary Care Provider [phone] HemOnc Status:Un-enrolled (Enrolling) Start date:02/26/2022 Enrollment reason:Un-enrolled - Therapy Discontinued Linked medications:cabozantinib s-malate (Discontinued) Linked problems:Renal cell carcinoma (Active) Continued Care and Services Coordination
--- OUTSIDE RECORDS SUMMARY | 2024-03-09 17:00 | XMS_ITS | Encounter Summary ---
Author Organization [facility] Address [address] [place] [address] Care Team Providers Care Taffy Candy Maker Name Role Phone Unavailable Primary Care Provider Unavailabl e Encounter Details Date Type Department Care Team (Late st Contact Info) Description 10/20/2021 Lab Requisition [facility] Pathology & Laboratory Medicine - [facility] [address] [place] [address] Outr Resulting Lab, Provider Social History Tobacco [...] Lyme Ab Negative Negative 10/22/2021 10:55 EDT [facility] Blood VENOUS BLOOD / Unknown 10/20/2021 17:56 EDT 10/21/2021 17:23 EDT Provider Outr Resulting Lab IMMUNOLOGY A ND SEROLOGY ORDERABLES [facility] [address] [place] [address] documented in this encounter Visit Diagnoses Not on filedocumented in this encounter
--- OUTSIDE RECORDS SUMMARY | 2024-03-09 17:00 | XMS_ITS | Encounter Summary ---
Author Organization [facility] Address [facility] [place] [address] Care Team Providers Care Transport Operations Inspector Name Role Phone Lisbet Solitario MD Primary Care Provider [phone] Reason for Referral * Diagnostic Test (Routine) - Closed Specialty Diagnoses / Procedures Referred By Burak mcnair Referred To Contact Diagnoses Renal mass Procedures CT Chest wo Contrast (Generic) Jordan Hou MD [facility] [place] [address] Referral ID Status Reason Start Date Expiration Date V isits Requested Visits Authorized [id number] Closed Specialty Service Requested 05/26/2021 11/23/2022 1 1 Reason for Visit * Reason Comments Renal Mass Encounter Details Date Type Department Care Team (Late st Contact Info) Description 05/26/2021 8:20 AM EST [place] [address] Jordan Hou MD [facility] [place] [place] [address] Renal mass Social History Tobacco Use Types [...] 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 WELDING ENGINEER: Denies loss of consciousness, denies balance difficulty, [...] injury, hernia formation, renal failure, DVT, PE, [place], stroke and prolonged hospital course. documented in this encounter Plan of Treatment Upcoming Encounters Date Type Department Care Team (Late st Contact Info) Description 03/29/2024 10:30 AM EST Laboratory Appointment [place] [facility] [place] [address] [place] [id number] 03/29/2024 12:[address] [place] [place] [address] Albino Bartholomew MD [facility] [place] [address] 04/05/2024 10:00 AM EST Office Visit Hematology and Oncology at [facility] [place] [address] Albino Bartholomew MD [facility] [address] [place] [address] documented as of this encounter Results * [...] questions please contact the health critical care cns that requested your imaging first. ? Narrative [...] EST) Glucose 93 65 - 199 mg/dL [facility] Comment:Diabetes: >=200 mg/d L plus symptoms Blood Urea Nitrogen 20 10 - 20 mg/dL [facility] Creatinine 1.28 0.80 - 1.50 mg/dL [facility] Sodium 137 135 - 145 mmol/L [facility] Potassium 4.2 3.5 - 5.0 mmol/L [facility] Comment: Please note: ??Patients with WBC >100,000 may have falsely elevated Potassium levels. ??For accurate Potassium quantification in these patients send serum separator tube (gold top) for subsequent determinations. ??Contact the Clinical Chemistry Laboratory if there are any questions. Chloride 106 98 - 107 mmol/L [facility] Carbon Dioxide 21(L) 22 - 31 mmol/L [facility] Anion Gap 10 5 - 15 mmol/L [facility] Calcium 10.0 8.5 - 10.5 mg/dL [facility] Protein, Total 7.3 6.1 - 8.0 g/dL [facility] Albumin 3.7 3.2 - 5.2 g/dL [facility] Aspartate Aminotransferase 20 0 - 39 unit/L [facility] Alanine Aminotransferase 30 0 - 55 unit/L [facility] Alkaline Phosphatase 129 40 - 130 unit/L [facility] Bilirubin, Total 0.6 0.2 - 1.3 mg/dL [facility] Est Glomerular Filtration Rate 58(L) >=60 mL/min/1. 73 m?? [facility] Comment: This patient? s [...] Lab Jordan Hou MD CHEMISTRY ORDERABL ES [facility] [place] [address] * EKG 12 Lead (06/23/2021 7:03 AM EST) Ventricular rate 77 BPM MUSE SYSTEM Atrial Rate 77 BPM MUSE SYSTEM P-R Interval 228 ms MUSE SYSTEM QRS Duration 92 ms MUSE SYSTEM Q-T Interval 384 ms MUSE SYSTEM QTC Calculated (Bezet) 434 ms MUSE SYSTEM Calculated P Pilot Station 24 degrees MUSE SYSTEM Calculated R Pilot Station 33 degrees MUSE SYSTEM Calculated T Pilot Station 30 degrees MUSE SYSTEM INTERPRETATION Sinus rhythm with 1st degree A-V block Septal infarct , age undetermined Abnormal ECG No previous ECGs available Confirmed by fellow MD Reyna, Luisito ([id number]) on 06/23/2021 1:55:29 PM Confirmed by MD Waters Jon ([id number]) on 06/23/2021 2:05:10 PM MUSE SYSTEM 06/23/2021 7:03 AM EST 06/23/2021 2:05 PM EST Jordan Hou MD ECG ORDERABLES MUSE SYSTEM documented in this encounter Visit Diagnoses Diagnosis Renal mass Unspecified disorder of kidney and ureter Renal mass Unspecified disorder of kidney and ureter documented in this encounter Care Teams Transport Operations Inspector Relationship Specialty Start Date End Date Lisbet Solitario MD [address] [place] [address] PCP - General Family Medicine 01/30/16 08/19/21 documented as of this encounter
--- OUTSIDE RECORDS SUMMARY | 2024-03-09 17:00 | XMS_ITS | Encounter Summary ---
Author Organization [facility] Address [address] [place] [address] Care Team Providers Care Special Education Paraeducator Name Role Phone Unavailable Primary Care Provider Unavailabl e Encounter Details Date Type Department Care Team (Late st Contact Info) Description 08/12/2021 Lab Requisition [facility] Pathology & Laboratory Medicine - [facility] [address] [place] [address] Outr Resulting Lab, Provider Social History Tobacco [...] 4th Generation Negative Negative 08/14/2021 10:28 EDT [facility] Comment:If acute HIV-1 infec tion is suspected in a high risk patient, submit plasma specimen for HIV-1 RNA quantitation test. Blood VENOUS BLOOD / Unknown 08/12/2021 10:40 EDT 08/13/2021 16:44 EDT Narrative [facility] - 08/14/2021 10:28 EDT Fourth Generation assay performed on the Siemens Centaur XPT. Provider Outr Resulting Lab IMMUNOLOGY A ND SEROLOGY ORDERABLES [facility] [address] [place] [address] documented in this encounter Visit Diagnoses Not on filedocumented in this encounter
--- OUTSIDE RECORDS SUMMARY | 2024-03-09 17:00 | XMS_ITS | Encounter Summary ---
Author Organization [facility] Address [facility] [place] [address] Care Team Providers Care Maintenance Specialist Name Role Phone Lisbet Solitario MD Primary Care Provider [phone] Encounter Details Date Type Department Care Team (Late st Contact Info) Description 03/16/2017 Telephone Dermatology at [facility] [address] [place] [address] Norm Kelley MD [facility] [address] [place] [address] Social History Tobacco Use Types Packs/Day Years [...] earliest convenience. Best numberto reach patient is [phone]. documented in this encounter Plan of Treatment Upcoming Encounters Date Type Department Care Team (Late st Contact Info) Description 03/29/2024 10:30 AM EST Laboratory Appointment [place] [facility] [address] [place] [address] 03/29/2024 12:[address] [place] [place] [phone] Albino Bartholomew MD [facility] [place] [address] 04/05/2024 10:00 AM EST Office Visit Hematology [place] [address] Albino Bartholomew MD [facility] [place] [address] documented as of this encounter Visit Diagnoses Not on filedocumented in this encounter Care Teams Maintenance Specialist Relationship Specialty Start Date End Date Lisbet Solitario MD [address] [place] [address] PCP - General Family Medicine 01/30/16 08/19/21 documented as of this encounter
--- OUTSIDE RECORDS SUMMARY | 2024-03-09 17:00 | XMS_ITS | Clinical Summary ---
Author Organization [facility] Address [address] [place] [address] Care Team Providers Care Post Framer Name Role Phone Unavailable Primary Care Provider [...] C Antibody Negative Negative 08/14/2021 9:44 EDT [facility] Blood VENOUS BLOOD / Unknown 08/12/2021 10:40 EDT 08/13/2021 16:44 EDT Provider Outr Resulting Lab CHEMISTRY & BLOOD GAS ORDERABLES [facility] [address] [place] [address] from Last 3 Months or Most Recently Relevant to Health Maintenance
--- OUTSIDE RECORDS SUMMARY | 2024-03-09 17:00 | XMS_ITS | Encounter Summary ---
Author Organization [facility] Address [facility] [place] [address] Care Team Providers Care Autism Specialist Name Role Phone Lisbet Solitario MD Primary Care Provider [phone] Reason for Visit * Auth/Cert Specialty Diagnoses / Procedures Referred By Burak t Referred To Contact Diagnoses Renal mass RENAL MASS Procedures PRO REMV KIDNEY, RADICAL PRO CYSTOURETHROSCOPY @NEPHRECTOMY, RADICAL W\REG LYMPHADENECTOMY &\OR VENA CAVA THROMBECTOMY (WRVU 23.81) CYSTO, CYSTOURETHROSCOPY, DIAGNOSTIC (WRVU 2.23) Referral ID Status Reason Start Date Expiration Date Visits Re quested Visits Authorized [id number] 1 1 Encounter Details Date Type Department Care Team (Late st Contact Info) Description 06/20/2021 1:00 PM EST Public Health [place] [address] COVID-19 ruled out Social History Tobacco Use [...] [facility] [place] [place] Hematology Oncology [address] [place] [address] 03/29/2024 12:[address] [place] [address] Albino Bartholomew MD [facility] HEMATOLOGY [place] [address] 04/05/2024 10:00 AM EST Office Visit Hematology [place] [phone] Albino Bartholomew MD [facility] HEMATOLOGY AND ONCOLOGY [place], [place] [id number] documented as of this encounter Procedures Procedure Name Priority Date/Time Associated Diagnosis Comments COVID-19 PCR Routine 06/20/2021 2:40 PM EST COVID-19 ruled out documented in this encounter Results * COVID-19 PCR (06/20/2021 2:40 PM EST) SARS-CoV-2 RNA Not Detected Not Detected [facility] Comment: This result should be [...] diagnosis of COVID-19 is performed using the [employer] m SARS-CoV-2 Assay as authorized by the FDA Emergency Use Authorization (EUA). This EUA assay is intended for In-vitro Diagnostic (IVD) use with respiratory specimens such as nasopharyngeal swabs collected from individuals during the acute phase of infection. This assay is performed based on the instructions for use provided by [employer] and additional guidance provided by CDC and FDA. Testing is performed in the [facility] Laboratory within the Department of Pathology and Laboratory Medicine at [facility], certified under the Clinical Laboratory Improvement Amendments [...] fact sheets at the following FDA website: https://www.fda.gov/medical-devices/pfnuszcmcxr-gumgcae-8339-pltav-12-izgfkaikr- use-a bkjujloplevrj-fgsffjh-soonnji/eojbz-udajhdmtipq-yhbi SARS-CoV-2 RNA Source DEV MANAGER Swab [facility] Nasopharyngeal Swab 06/20/19 2:40 PM EST 06/20/2021 2:40 PM EST Comment:Symptoms->Asymptomat ic Narrative Resulting Agency Comment Spec In Lab Jordan Hou [place] [address] documented in this encounter Visit Diagnoses Diagnosis COVID-19 ruled out documented in this encounter Care Teams Autism Specialist Relationship Specialty Start Date End Date Lisbet Solitario MD [address] [place] [address] PCP - General Family Medicine 01/30/16 08/19/21 documented as of this encounter
--- OUTSIDE RECORDS SUMMARY | 2024-03-09 17:00 | XMS_ITS | Encounter Summary ---
Author Organization [facility] Address [address] [place] [address] Care Team Providers Care Post Office Clerk Name Role Phone Unavailable Primary Care Provider Unavailabl e Encounter Details Date Type Department Care Team (Late st Contact Info) Description 11/04/2021 Lab Requisition [facility] Pathology & Laboratory Medicine - [facility] [address] [place] [address] Outr Resulting Lab, Provider Social History Tobacco [...] IgG 845 610-1,616 mg/dL 11/05/2021 13:33 EDT [facility] Blood VENOUS BLOOD / Unknown 11/04/2021 9:45 EDT 11/04/2021 16:38 EDT Provider Outr Resulting Lab CHEMISTRY & BLOOD GAS ORDERABLES [facility] [address] [place] [address] documented in this encounter Visit Diagnoses Not on filedocumented in this encounter
--- NOTE | 2024-03-09 17:36 | W.PC.ACHO ---
Registration Status: Primary Language: Preferred Language: ED Information & Data Chief Complaint Abd Prob 03/09/24 11:45 Triage Note pt here 2 weeks ago with 03/09/24 10:06 gallstones that were resolved, today is C/O abd pain, vomited 3-4 times last night. 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 Medical / Surgical History (Last Reviewed 03/09/24 @ 14:11 by Holger Amador MD) Toxic hepatitis Acute DVT (deep venous thrombosis) Peripheral edema Burning mouth syndrome Ingrown toenail Dizziness Transaminitis Obesity Renal cell carcinoma Hyperlipidemia Hypertension (Last Reviewed 03/09/24 @ 14:11 by Holger Amador MD) H/O Achilles tendon repair H/O left nephrectomy History of hernia repair Most Recent Vital Signs Temperature 37.2 C 03/09/24 17:12 Temperature Source Temporal Artery Scan 03/09/24 17:03 Pulse 69 03/09/24 17:12 Pulse Rhythm Regular 03/09/24 17:12 Respiratory Rate 16 03/09/24 17:12 Respiratory Effort Normal 03/09/24 17:12 Respiratory Depth Normal 03/09/24 17:12 Respiratory Pattern Normal 03/09/24 17:12 Blood Pressure 129/81 03/09/24 17:12 Blood Pressure Mean 105 03/09/24 14:41 Blood Pressure Position Supine 03/09/24 14:38 Pulse Oximetry 100 03/09/24 17:12 Oxygen Delivery Method Room Air 03/09/24 17:12 Oxygen Flow Rate 0 03/09/24 17:12 Pain Level 1 03/09/24 17:09 Allergies peanut Allergy (Intermediate, Unverified 03/09/24 11:07) rash/mouth swelling IV IV Catheter Type [Left Peripheral IV Antecubital] IV Catheter Gauge [Left 18 Antecubital] Diet Orders Category Date Time Status Nothing Per Oral [DIET] Nutrition 03/09/24 Dinner Active Diagnostics 03/09/24 03/09/24 Range/Units 13:00 11:00 WBC 11.08 H (4.4-10.8) 10^3/uL RBC 5.20 (4.36-5.78) 10^6/uL Hgb 15.5 (13.5-17.5) g/dL Hct 46.7 (40.0-50.0) % MCV 90 (80-95) fL MCH 29.8 (27.0-33.0) pg MCHC 33.2 (32.0-36.0) % RDW 14.6 H (11.8-14.1) % Plt Count 171 (130-400) 10^3/uL MPV 9.4 (8.0-11.0) fL Immature Gran % 0.5 % Neutrophils % 90.4 % Lymphocytes % 5.1 % Monocytes % 3.2 % Eosinophils % 0.3 % Basophils % 0.5 % Nucleated RBC % 0.0 (0.0-0.3) % Absolute Neutrophils 10.02 H (1.2-6.7) 10^3/uL Absolute Lymphocytes 0.57 L (1.2-3.4) 10^3/uL Absolute Monocytes 0.35 (0.1-0.8) 10^3/uL Absolute Eosinophils 0.03 (0.0-0.7) 10^3/uL Absolute Basophils 0.06 (0.0-0.2) 10^3/uL Sodium 137 (136-145) mmol/L Potassium 3.6 (3.5-5.1) mmol/L Chloride 99 (98-107) mmol/L Carbon Dioxide 30.2 (21.0-32.0) mmol/L Anion Gap 7.8 (3-11) mmol/L BUN 20 H (7-18) mg/dL Creatinine 1.7 H (0.70-1.30) mg/dL Est GFR (CKD-EPI 2020) 43.10 (mL/min/1.73m2) Glucose 196 H (74-106) mg/dL Calcium 9.7 (8.5-10.1) mg/dL Total Bilirubin 2.59 H (0.2-1.0) mg/dL AST 404 H (15-37) U/L ALT 963 H (16-63) U/L Alkaline Phosphatase 422 H (46-116) U/L Total Protein 7.8 (6.4-8.2) g/dL Albumin 3.6 (3.4-5.0) g/dL Lipase > 375 H (16-77) U/L Urine Color Yellow (Yellow) Urine Clarity Clear (Clear) Urine pH 7.0 (5-8) Ur Specific Arena 1.015 (1.005-1.025) Urine Protein 30 H (Neg-Trace) mg/dL Urine Ketones Negative (Negative) mg/dL Urine Blood Negative (Negative) Urine Nitrite Negative (Negative) Urine Bilirubin Small H (Negative) Urine Urobilinogen 1.0 H (Up to 0.2) mg/dL Ur Leukocyte Esterase Negative (Negative) Urine RBC 0-2 (0-2) HPF Urine WBC 0-2 (0-5) HPF Ur Epithelial Cells Negative (Negative) HPF Urine Crystals Negative (Negative) HPF Urine Bacteria Few (Negative) HPF Urine Casts Negative (Negative) LPF Urine Mucus Trace (Negative) Ur Culture Indicated? No Urine Glucose Negative (Negative) mg/dL Intake and Output - 24 Hour Total 03/09/24 10:01 thru 03/09/24 17:12 Intake Total 100 Balance 100 Weight 99.798 kg Intake: IV 100 Other: Urine Appearance Clear Falls Risk Assessment History of Falls No History 03/09/24 17:12 Contributing Factors No Factors 03/09/24 17:12 Ambulatory Aids Independent 03/09/24 17:12 Tubes/Lines W/no contributing factors 03/09/24 17:12 Gait Evaluation No gait disturbance 03/09/24 17:12 Cognition No cognitive impairment 03/09/24 17:12 Fall Total Score 10 03/09/24 17:12 Level of Risk Standard/Low Risk 03/09/24 17:12 Problems (Last Reviewed 03/09/24 @ 14:11 by Holger Amador MD) Contraindication to deep vein thrombosis (DVT) prophylaxis (Acute) Elevated bilirubin (Acute) Pancreatitis (Chronic) v v v v v v v v v Sending and/or Receiving Nurses: Please use comment section below to note any information pertinent to the patient hand-off not included above. Information / Comments: Report received from: JYOTI Roland given to DUANE Bonilla. 03/09/24 at 1630
[2024-03-09] MEDS: HYDROmorphone 1 MG/ML SYR 2 MG IVP (20:20)
[2024-03-09] MEDS: Apixaban 5 MG TAB PO (20:23)
[2024-03-09] MEDS: Lactated Ringers 1,000 ML 125 ML IV (20:25)
[2024-03-09] MEDS: Normal Saline Flush 10 ML SYR IVP ×2 (21:43→21:44)
[2024-03-10 02:41] VITALS: BP 140/73; PULSE 57; RESP 16; TEMP 36.4; O2SAT 96
[2024-03-10] MEDS: Lactated Ringers 1,000 ML 125 ML IV ×2 (04:31→13:00)
[2024-03-10] MEDS: Levothyroxine 75 MCG TAB PO (06:25)
[2024-03-10 06:29] LABS: ALT 586 U/L (16-63); AST 140 U/L (15-37); Albumin 3.1 g/dL (3.4-5.0); Alkaline Phosphatase 331 U/L (46-116); Anion Gap 8.5 mmol/L (3-11); BUN 22 mg/dL (7-18); Bilirubin, Total 1.54 mg/dL (0.2-1.0); CO2 30.5 mmol/L (21.0-32.0); CREATININE 1.5 mg/dL (0.70-1.30); Calcium 9.2 mg/dL (8.5-10.1); Chloride 99 mmol/L (98-107); Estimated GFR 50.08 (mL/min/1.73m2); Glucose 114 mg/dL (74-106); Potassium 3.6 mmol/L (3.5-5.1); Sodium 138 mmol/L (136-145); Total Protein 7.1 g/dL (6.4-8.2)
[2024-03-10 07:26] LABS: Calculated LDL 149 mg/dL (<100); Cholesterol 215 mg/dL (<200); HDL Cholesterol 40 mg/dL (40-60); Triglyceride 134 mg/dL (<150)
[2024-03-10 08:14] VITALS: BP 124/68; PULSE 73; RESP 18; TEMP 37; O2SAT 97
[2024-03-10] MEDS: Chlorthalidone 25 MG TAB PO (08:34)
[2024-03-10] MEDS: Losartan 50 MG TAB 100 MG PO (08:34)
[2024-03-10] MEDS: amLODIPine 10 MG TAB PO (08:34)
[2024-03-10] MEDS: Apixaban 5 MG TAB PO ×2 (08:34→21:41)
[2024-03-10] MEDS: Normal Saline Flush 10 ML SYR IVP ×4 (08:35→21:41)
--- NOTE | 2024-03-10 08:49 | PDOC.CMIN ---
Date of service: 03/10/24 Time of Service: 08:49 Care Management Initial Assmt Initial Assessment Reason for Hospitalization: Pancreatitis Functional Status/Living Situation Patient Presentation: Cristofer was sitting up in a chair when CM met with him. He was very pleasant in manner and engaged easily with CM. Cristofer was admitted with pancreatitis. He had been diagnosed with gallstones in early January and presented to the Ed yesterday with abdominal pain, nausea and vomiting. When CM met with him, Cristofer stated he was already feeling much better. He had just finished a clear liquid lunch and seemed to be tolerating it well. He had also been medicated shortly before. CM returned a couple of hours later to assist Cristofer with the completion of Advanced Directives. He stated that he continues to feel well and has not had any nausea, vomiting or increased pain since eating. Cristofer lives in a single family home in [place] with his Talisha. Between them they have 3 children and2 grandchildren. 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 He is independent at baseline and does not receive any community services. Town of Residence: [place] Resides with: Spouse (Emily ) Significant Other/Family: Out of area (children live out of state: [place], [place] and [place]) Natural Supports: family Employment Status: Retired Instrumental Activities of Daily Living (ADLs): Independent Medications Medication Management: No Issues/Barriers identified Physical Functioning/Mobility Assistive Device: none Advance Directives Advance Directives: Do you have an Advance Directive: Y 04/23/22 12:14 AD On File at [facility]: Y 04/23/22 12:14 Date Asked 09/29/23 09/29/23 12:44 AD Date Reviewed 03/09/24 03/09/24 10:04 COLST On File at [facility] No 02/03/24 16:48 COLST Date Scanned Code Status Resuscitation Status DNR/DNI Insurance Coverage/Financial Issues Insurance: /BS [place] Medicare Ad[place]age Care Team Visit Care Team Role Provider Type Juan Dempsey MD Primary Care Provider NON-[facility] STAFF PHYSICIAN Holger Amador MD Emergency Provider [facility] STAFF PHYSICIAN Torsten Giles MD Admit Provider [facility] STAFF PHYSICIAN Attending Provider Discharge Potential Discharge Needs: PCP F/U Appt and Other (Oncology) Anticipated Barriers to Discharge: None Identified Patient/Family Education Needs: Review discharge instructions, discuss Ask Me Three Transportation: Private vehicle Plan: Anticipate Cristofer will be discharged home with no new services. He will follow up with his PCP, Oncology and other community providers and plan of care and transport with family. CM will follow and support discharge planning needs. PFSH All Active Problems (Updated 03/10/24 @ 13:42 by Natalie Givens APRN) Constipation (Acute) Hypothyroidism (Chronic) Contraindication to deep vein thrombosis (DVT) prophylaxis (Acute) Elevated bilirubin (Acute) Pancreatitis (Chronic) Sensorineural hearing loss (SNHL) of both ears (Acute) Umbilical hernia (Acute) Positive fecal occult blood test (Acute) Screening for colon cancer (Acute) Seasonal allergies (Acute) Overweight (Acute) Heart murmur (Acute) Medical History Toxic hepatitis Acute DVT (deep venous thrombosis) Peripheral edema Burning mouth syndrome Ingrown toenail Dizziness 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 Obesity Renal cell carcinoma Hyperlipidemia Hypertension Surgical History H/O Achilles tendon repair H/O left nephrectomy History of hernia repair Social History Smoking/Tobacco Use Status: Never Smoking risk assessment performed?: Yes Alcohol Intake: former Drug use: Never Substance use type: does not use Details: no alcohol x40 years Household members: spouse Housing: house 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 SDOH(Care Management) Screening Will the Patient Participate in the Screening?: Yes Do you worry about having a steady place to live?: no Problems where you live: no known problems In the past 12 months, have you had to go without electric, gas, oil or water in your home?: no Have you or anyone in your house had to go without enough food to eat?: no Has lack of transportation kept you from medical appointments or from doing things needed for daily living?: no Has anyone in your support network made you feel unsafe for any reason?: no
--- NOTE | 2024-03-10 09:38 | PGE_ITS ---
Date of Service Date of service: 03/10/24 Time of Service: 09:38 Assessment and Plan Assessment and plan (1) Pancreatitis: Status: Chronic Assessment and plan: Clinically improving - was NPO - considering starting clears then advance if tolerated Continue IVF: LR at 125 cc/hr Reported diaphoresis x 1 without dizziness status post hydromorphone administration x 1. The patient was transitioned to morphine Trial of Toradol x 24 hours?will hold off acetaminophen due to transaminitis Considering PRN hydromorphone if additional pain management medicine required. Morphine also considered but due to liver history hydromorphone chosen Continue PRN ondansetron Will start Protonix IV (2) Transaminitis: Assessment and plan: Improving LFT's-down by 50%- this AM in the setting of a Hx of resolving transaminitis with immunotherapy Increased LFT's this admission in the setting of pancreatitis CMP in AM (3) Renal cell carcinoma: Assessment and plan: Patient reporting having 1 kidney?creatinine below baseline at 1.5 this morning We will continue to monitor renal function?CMP in a.m. Will continue to f/u with [facility] [place] oncologyupon discharge : Oral chemo on hold at this time On admission patient mentioned appointment on 03/29/24 to plan with oncology (4) Hypertension: Assessment and plan: Continue home dose Losartan (5) Hyperlipidemia: Assessment and plan: In the setting of transaminitis , statins would not be appropriate Consider Zetia LDL 149 total cholesterol 215 HDL 40 This might be preferable to be discussed with primary care provider during outpatient follow-up (6) Hypothyroidism: Status: Chronic Assessment and plan: On home dose levothyroxine (7) Constipation: Status: Acute Assessment and plan: Last bowel movement 03/07/2024?not passing flatus this morning but abdomen appears nonacute. Will start Colace and MiraLAX and continue to monitor (8) Contraindication to deep vein thrombosis (DVT) prophylaxis: Status: Acute Assessment and plan: Will continue on his chute man treatment with Eliquis for a history of DVT Discussed with Dr. Giles Subjective Subjective Patient reports: pain is less, voiding w/o difficulty, no flatus, no bowel movement and other (Reported diaphoresis status post administration of hydromorphone last night without dizziness; willing to try again versus morphine due to increased liver function and transaminitis history); denies nausea, vomiting, shortness of breath or fever Exam Narrative Exam Narrative: Constitutional The patient sitting in chair, pain at 1/10 to left upper and lower abdomen w/o acute distress HENMT: Head is atraumatic, normocephalic, no lymphadenopathy. Facial structures with normal appearance Eyes: Well aligned, intact ROM; slightly icteric sclera improved from prior Neck: Normal ROM, no meningeal signs Neuro:alert and oriented x 4 . No neurological focal deficit Resp:Unlabored breathing, clear lung bilaterally with diminished bases Cardio: regular rhythm, S1, S2, no murmur, capillary refill<3 sec., bilateral radial and dorsalis pedis pulses are positive, palpable GI: Abdomen is not distended, soft and tender to epigastric and left upper and lower abdomen, bowel sounds are present : Negative Costovertebral angle tenderness, no bladder distension Back/spine/Pelvis: No back tenderness, normal alignment Integumentary: No skin lesions or rash Extremities: strength 5/5 to bilateral lower and upper extremities Psych: RASS 0, congruent mood and normal affect. Objective Last Vital Signs Temp 37.0 C 03/10/24 08:14 Pulse 73 03/10/24 08:14 Resp 18 03/10/24 08:14 BP 124/68 03/10/24 08:14 Pulse Ox 97 03/10/24 08:14 Laboratory Results - last 24 hr 03/09/24 03/09/24 03/10/24 11:00 13:00 05:52 WBC 11.08 H RBC 5.20 Hgb 15.5 Hct 46.7 MCV 90 MCH 29.8 MCHC 33.2 RDW 14.6 H Plt Count 171 MPV 9.4 Immature Gran % 0.5 Neutrophils % 90.4 Lymphocytes % 5.1 Monocytes % 3.2 Eosinophils % 0.3 Basophils % 0.5 Nucleated RBC % 0.0 Absolute Neutrophils 10.02 H Absolute Lymphocytes 0.57 L Absolute Monocytes 0.35 Absolute Eosinophils 0.03 Absolute Basophils 0.06 Sodium 137 138 Potassium 3.6 3.6 Chloride 99 99 Carbon Dioxide 30.2 30.5 Anion Gap 7.8 8.5 BUN 20 H 22 H Creatinine 1.7 H 1.5 H Est GFR (CKD-EPI 2020) 43.10 50.08 Glucose 196 H 114 H Calcium 9.7 9.2 Total Bilirubin 2.59 H 1.54 H AST 404 H 140 H ALT 963 H 586 H Alkaline Phosphatase 422 H 331 H Total Protein 7.8 7.1 Albumin 3.6 3.1 L Triglycerides 134 Total Cholesterol 215 H LDL Cholesterol, Calc 149 H HDL Cholesterol 40 Lipase > 375 H Urine Color Yellow Urine Clarity Clear Urine pH 7.0 Ur Specific [place] 1.015 Urine Protein 30 H Urine Ketones Negative Urine Blood Negative Urine Nitrite Negative Urine Bilirubin Small H Urine Urobilinogen 1.0 H Ur Leukocyte Esterase Negative Urine RBC 0-2 Urine WBC 0-2 Ur Epithelial Cells Negative Urine Crystals Negative Urine Bacteria Few Urine Casts Negative Urine Mucus Trace Ur Culture Indicated? No Urine Glucose Negative Time Spent with Patient Time Spent with Patient: >50 minutes Time was spent: preparing to see the patient(eg.review tests), obtaining and/or reviewing separately otained hiistory, ordering medications,tests, procedures, referring, communicating with other health daytime caregiver, indepentently interpreting results, counseling the patient and care coordination
[2024-03-10 11:16] VITALS: BP 127/82; PULSE 74; RESP 16; TEMP 36.9; O2SAT 96
[2024-03-10] MEDS: MORPHine 4 MG/ML SYR IVP (11:36)
[2024-03-10] MEDS: Docusate Sodium 100 MG CAP PO ×2 (14:07→21:42)
[2024-03-10] MEDS: Pantoprazole 40 MG VIAL IVP (14:07)
--- NOTE | 2024-03-10 14:11 | CHAPLAIN ---
Cristofer was up in the chair having lunch when I visited. He explained that having solid food is progress. His is visiting with him, but had stepped out for a while. Cristofer hopes the advancement in his diet means he'll be discharged in the next day or two. I explained my role and offered support.
[2024-03-10 15:51] VITALS: BP 132/70; PULSE 64; RESP 16; TEMP 36.9; O2SAT 97
[2024-03-10 19:33] VITALS: BP 132/71; PULSE 69; RESP 20; TEMP 37.1; O2SAT 97
[2024-03-10] MEDS: Polyethylene Glycol 3350 17 GM PACKET PO (21:42)
[2024-03-10 23:05] VITALS: BP 115/57; PULSE 67; RESP 15; TEMP 36.7; O2SAT 94
[2024-03-11 02:05] VITALS: BP 128/79; PULSE 78; RESP 18; TEMP 37.6; O2SAT 95
[2024-03-11] MEDS: Ondansetron 4 MG/2 ML VIAL IVP (02:25)
[2024-03-11] MEDS: Lactated Ringers 1,000 ML 80 ML IV (03:48)
[2024-03-11] MEDS: Levothyroxine 75 MCG TAB PO (06:24)
[2024-03-11 06:34] LABS: Abs Immature Grans 0.08 10^3/uL (0.0-0.06); Absolute Basophil Count 0.07 10^3/uL (0.0-0.2); Absolute Eosinophil Count 0.13 10^3/uL (0.0-0.7); Absolute Lymphocyte Count 1.14 10^3/uL (1.2-3.4); Absolute Neutrophil Count 11.94 10^3/uL (1.2-6.7); Basophils % 0.5 %; Eosinophils % 0.9 %; HCT 39.7 % (40.0-50.0); HGB 13.2 g/dL (13.5-17.5); Immature Grans % 0.6 %; Lymphocytes % 8.1 %; MCHC 33.2 % (32.0-36.0); MCV 90 fL (80-95); Monocytes % 5.2 %; Neutrophils % 84.7 %; Platelet Count 169 10^3/uL (130-400); RDW 14.6 % (11.8-14.1); RDW-SD 48.3 fL
[2024-03-11 06:35] LABS: Absolute Monocyte Count 0.73 10^3/uL (0.1-0.8)
[2024-03-11 07:13] LABS: ALT 327 U/L (16-63); AST 48 U/L (15-37); Albumin 2.9 g/dL (3.4-5.0); Alkaline Phosphatase 245 U/L (46-116); Anion Gap 8.9 mmol/L (3-11); BUN 22 mg/dL (7-18); Bilirubin, Total 1.19 mg/dL (0.2-1.0); CO2 30.1 mmol/L (21.0-32.0); CREATININE 1.5 mg/dL (0.70-1.30); Calcium 9.1 mg/dL (8.5-10.1); Chloride 101 mmol/L (98-107); Estimated GFR 50.08 (mL/min/1.73m2); Glucose 106 mg/dL (74-106); Sodium 140 mmol/L (136-145); Total Protein 6.8 g/dL (6.4-8.2)
[2024-03-11 07:34] VITALS: BP 130/74; PULSE 72; RESP 16; TEMP 37.8; O2SAT 96
[2024-03-11] MEDS: Polyethylene Glycol 3350 17 GM PACKET PO (08:12)
[2024-03-11] MEDS: Chlorthalidone 25 MG TAB PO (08:12)
[2024-03-11] MEDS: Losartan 50 MG TAB 100 MG PO (08:13)
[2024-03-11] MEDS: amLODIPine 10 MG TAB PO (08:13)
[2024-03-11] MEDS: Docusate Sodium 100 MG CAP PO (08:13)
[2024-03-11] MEDS: Apixaban 5 MG TAB PO (08:14)
[2024-03-11] MEDS: Normal Saline Flush 10 ML SYR IVP ×2 (08:45→09:36)
[2024-03-11] MEDS: Pantoprazole 40 MG VIAL IVP (09:36)
[2024-03-11] MEDS: POTASSIUM CHLORIDE 20 MEQ/100 ML BAG 50 MEQ IV_INF ×2 (09:37→12:26)
[2024-03-11 10:19] LABS: Magnesium 1.9 mg/dL (1.8-2.4)
[2024-03-11 11:32] LABS: Bilirubin Negative (Negative); Blood Negative (Negative); Clarity Clear (Clear); Glucose Negative (Negative); Ketones Negative (Negative); Leukocyte Esterase Negative (Negative); Nitrite Negative (Negative); Urobilinogen >=8.0 mg/dL (Up to 0.2); pH 6.5 (5-8)
[2024-03-11 12:04] LABS: Potassium 3.2 mmol/L (3.5-5.1)
--- NOTE | 2024-03-11 12:20 | W.PM.DS.N ---
Date of service: 03/11/24 Time of Service: 12:20 DS: Diagnosis Discharge Diagnosis (1) Pancreatitis: Status: Chronic (2) Transaminitis: (3) Renal cell carcinoma: (4) Hypertension: (5) Hyperlipidemia: (6) Hypothyroidism: Status: Chronic (7) Constipation: Status: Acute Discharge Plan Disposition Patient Disposition: Home Condition: Improving Discharge Details Reason For Visit: Pancreatis Admit Date/Time: 03/09/24 15:40 Admit Provider: Torsten Giles Attending Provider: Torsten Giles Primary Care Provider: Juan Dempsey Hospital Course Hospital Course: This 69 years old male patient with past medical history of renal cell carcinoma follow by oncology at [facility] and no longer on oral chemotherapy taken for maintenance due to the discovery of primary site enlargement and pulmonary nodule findings presented to [facility] emergency department 03/09/2024 with complaints of recurrent abdominal pain starting 2 days prior to presentation after having being diagnosed around February 02 with gallstones; the patient was discharged after improvement of symptoms. As per patient's report, following CT [place] [facility] show [place]. The pain was described as constant, dull and from the middle of his abdomen to the left upper quadrant, worsening with food intake; also associated with vomiting without hematemesis. The patient also reported a few episodes of diarrhea without hematochezia. Patient denied chills or fever. Workup in the ED was significant for WBC at 11.08, BUN and creatinine of 20 and 1.7 with previous values 28 and 1.7, AST at 4 4, ALT at 963 and alk phos at 422 significantly more elevated than previous values from 02/03/2024. Lipase was over 375. The hospitalist was consulted and the patient admitted to the medical surgical floor for evaluation and management of acute pancreatitis. When seen in the ED, the patient mentioned that the pain improved from 7 to now at 5. The patient reported that is prodrome included being lightheaded, and feelings of tiredness and malaise. The patient denied headache, chest or back pain, shortness of breath, or dysuria. The patient reported having sustained liver injury due to IV immunotherapy, been off oral chemotherapy but with plans to reconsult oncology on further treatment with appointment scheduled for 03/29/2024. The patient mentioned being agreeable to CPR and intubation. During the stay, the patient continued to receive IV fluid hydration, antiemetics and pain management medicines initially with hydromorphone which caused diaphoresis without dizziness then was subsequently switched to morphine. On the subsequent day, the patient only required opioids once. The patient did not have any further nausea or vomiting. As needed NSAID or acetaminophen were not needed. The patient is initiated on bowel management medicines and can continue Colace and MiraLAX as needed at home. The patient resumed oral intake and tolerating it well. This morning the patient is cleared temperature of 37.8 upon reassessment his temperature was Nevertheless due to WBC increasing to 14.10 from 11.48 days ago blood cultures were drawn and pending. This might be due to reactive leukocytosis rather than infection. Will monitor for results. Hypokalemia was corrected with IV and oral supplementation. Patient mention being on oral potassium at home and recommendation given to patient to continue his home medicine regimen as per prior to admission; in the instance the patient needs further order for potassium to be continued outpatient, he will have to call his ordering provider for renewal. Overall the patient is feeling better. Transaminitis improved. The patient will be discharged home without services with follow-up with his primary care practitioner within 7 days of discharge. BMP ordered and results to be sent to primary care provider. As discussed, patient plans to follow-up with oncology and gastroenterology at [facility]. Discussed with Dr. Giles Home Meds and New Rx's Prescriptions: New docusate sodium [Colace] 100 mg Capsule 100 mg PO DAILY Qty: 30 0RF ondansetron 4 mg tablet,disintegrating 4 mg PO Q8H PRNQty: 9 0RF acetaminophen 325 mg capsule 650 mg PO Q8H PRN PRNQty: 30 0RF Continued losartan 100 mg tablet 100 mg PO DAILY diphenhydramine HCl [Benadryl] 25 mg capsule 25 mg PO Q6H PRN chlorthalidone 25 mg tablet 25 mg PO DAILY amlodipine 10 mg tablet 10 mg PO DAILY Patient Comments: TAKE ONE TABLET BY MOUTH EVERY DAY FOR BLOOD PRESSURE meclizine 25 mg tablet 25 mg PO TID PRN (Reason: dizziness) Qty: 30 0RF Eliquis 5 mg tablet 5 mg PO BID Patient Comments: TAKE ONE TABLET BY MOUTH TWICE A DAY levothyroxine 75 mcg tablet 75 mcg PO DAILY Discharge Instructions Referrals: Juan Dempsey MD [Primary Care Provider] - (F/u within 7 days of discharge ) Activity:: Activity as Tolerated Equipment/Supplies:: No Equipment Needed Diet:: heart healthy Diabetic Discharge Orders Discharge Orders: Discharge Order (Routine); Ordered 03/11/24 Ordered By: Natalie Givens Other Ambulatory Orders: Basic Metabolic Panel (Routine) Timeframe: [id number] Facility: [facility] - Location: Laboratory Outpatient - [facility] Ordered By: Natalie Givens DS: Summary Time Spent with Patient providing and/or coordinating discharge services: Greater than 30 minutes Status at Discharge Functional status at discharge: independent ambulation Overall status at discharge: patient is progressing back to baseline Mental Status: mental status grossly normal Speech and Movement: speech and movement normal Mood: congruent mood Affect: normal affect Quality:SDOH Health Related Social Needs: No Data to Display Exam Narrative Exam Narrative: Constitutional The patient sitting in chair, pain at 1/10 to left upper and lower abdomen w/o acute distress HENMT: Head is atraumatic, normocephalic, no lymphadenopathy. Facial structures with normal appearance Eyes: Well aligned, intact ROM; slightly icteric sclera improved from prior Neck: Normal ROM, no meningeal signs Neuro:alert and oriented x 4 . No neurological focal deficit Resp:Unlabored breathing, clear lung bilaterally with diminished bases Cardio: regular rhythm, S1, S2, no murmur, capillary refill<3 sec., bilateral radial and dorsalis pedis pulses are positive, palpable GI: Abdomen is not distended, soft and tender to epigastric and left upper and lower abdomen, bowel sounds are present : Negative Costovertebral angle tenderness, no bladder distension Back/spine/Pelvis: No back tenderness, normal alignment Integumentary: No skin lesions or rash Extremities: strength 5/5 to bilateral lower and upper extremities Psych: RASS 0, congruent mood and normal affect. Psych Mental Status: mental status grossly normal Speech and Movement: speech and movement normal Mood: congruent mood Affect: normal affect DS: Data Vitals/I&O Vitals and I&O: Vital Signs Temperature 37.8 C H 03/11/24 07:34 Temperature Source Temporal Artery Scan 03/11/24 07:34 Pulse 72 03/11/24 07:34 Pulse Rhythm Regular 03/09/24 17:12 Respiratory Rate 16 03/11/24 07:34 Respiratory Effort Normal 03/09/24 17:12 Respiratory Depth Normal 03/09/24 17:12 Respiratory Pattern Normal 03/09/24 17:12 Blood Pressure 130/74 03/11/24 07:34 Blood Pressure Mean 105 03/09/24 14:41 Blood Pressure Position Supine 03/09/24 14:38 Pulse Oximetry 96 03/11/24 07:34 Oxygen Delivery Method Room Air 03/11/24 07:34 Oxygen Flow Rate 0 03/11/24 07:34 Pain Level 0 03/11/24 07:34 Comment charted on wrong pt 03/10/24 07:36 Intake & Output 03/10/24 03/11/24 03/11/24 23:59 11:59 23:59 Intake Total 2181 / 3191 319.167 / 629.167 310 / 629.167 Output Total 725 / 725 Balance 2181 / 2641 -405.833 / -95.833 310 / -95.833 Intake: IV 1710 / 2720 319.167 / 329.167 10 / 329.167 Oral 471 / 471 300 / 300 Output: Urine 725 / 725 Other: Urine Color Yellow Yellow Urine Appearance Clear Urine Odor Normal Comment Per patient voided Scanned 3 times. unmeasured amount voided. 59, 82, 0 Stool Size Moderate Stool Characteristics Soft Data Completed and Pending Labs on day of discharge: Labs from last 24 hours 03/11/24 03/11/24 03/11/24 11:55 11:00 09:45 WBC RBC Hgb Hct MCV MCH MCHC RDW Plt Count MPV Immature Gran % Neutrophils % Lymphocytes % Monocytes % Eosinophils % Basophils % Nucleated RBC % Absolute Neutrophils Absolute Lymphocytes Absolute Monocytes Absolute Eosinophils Absolute Basophils Sodium Potassium 3.2 L Chloride Carbon Dioxide Anion Gap BUN Creatinine Est GFR (CKD-EPI 2020) Glucose Calcium Magnesium 1.9 Total Bilirubin AST ALT Alkaline Phosphatase Total Protein Albumin Urine Color Yellow Urine Clarity Clear Urine pH 6.5 Ur Specific [place] 1.010 Urine Protein Negative Urine Ketones Negative Urine Blood Negative Urine Nitrite Negative Urine Bilirubin Negative Urine Urobilinogen >=8.0 H Ur Leukocyte Esterase Negative Urine Glucose Negative 03/11/24 06:08 WBC 14.10 H RBC 4.40 Hgb 13.2 L D Hct 39.7 L MCV 90 MCH 30.0 MCHC 33.2 RDW 14.6 H Plt Count 169 MPV 10.0 Immature Gran % 0.6 Neutrophils % 84.7 Lymphocytes % 8.1 Monocytes % 5.2 Eosinophils % 0.9 Basophils % 0.5 Nucleated RBC % 0.0 Absolute Neutrophils 11.94 H Absolute Lymphocytes 1.14 L Absolute Monocytes 0.73 Absolute Eosinophils 0.13 Absolute Basophils 0.07 Sodium 140 Potassium 3.0 L Chloride 101 Carbon Dioxide 30.1 Anion Gap 8.9 BUN 22 H Creatinine 1.5 H Est GFR (CKD-EPI 2020) 50.08 Glucose 106 Calcium 9.1 Magnesium Total Bilirubin 1.19 H AST 48 H ALT 327 H Alkaline Phosphatase 245 H Total Protein 6.8 Albumin 2.9 L Urine Color Urine Clarity Urine pH Ur Specific [place] Urine Protein Urine Ketones Urine Blood Urine Nitrite Urine Bilirubin Urine Urobilinogen Ur Leukocyte Esterase Urine Glucose 03/11/24 09:55 Blood Blood Culture - Pending 03/11/24 09:45 Blood Blood Culture - Pending Preliminary micro results at discharge 03/11/24 09:55 Blood Culture - Pending Blood 03/11/24 09:45 Blood Culture - Pending Blood PFSH All Active Problems (Updated 03/11/24 @ 09:14 by Natalie Givens APRN) Constipation (Acute) Hypothyroidism (Chronic) Contraindication to deep vein thrombosis (DVT) prophylaxis (Acute) Elevated bilirubin (Acute) Pancreatitis (Chronic) Sensorineural hearing loss (SNHL) of both ears (Acute) Umbilical hernia (Acute) Positive fecal occult blood test (Acute) Screening for colon cancer (Acute) Seasonal allergies (Acute) Overweight (Acute) Heart murmur (Acute) Medical History Toxic hepatitis Acute DVT (deep venous thrombosis) Peripheral edema Burning mouth syndrome Ingrown toenail Dizziness 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 Obesity Renal cell carcinoma Hyperlipidemia Hypertension Surgical History H/O Achilles tendon repair H/O left nephrectomy History of hernia repair Social History Smoking/Tobacco Use Status: Never Smoking risk assessment performed?: Yes Alcohol Intake: former Drug use: Never Substance use type: does not use Details: no alcohol x40 years Household members: spouse Housing: house 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
[2024-03-11] MEDS: Potassium Chloride 20 MEQ TABCR 40 MEQ PO (12:27)
[2024-03-11 12:38] LABS: Lab Add On Test DONE
--- NOTE | 2024-03-11 13:50 | PHA.REVIEW2 ---
Pharmacy Admission Review Admission Clinical Review Admission Pharmacy Review: Constipation (Acute) Contraindication to deep vein thrombosis (DVT) prophylaxis (Acute) Elevated bilirubin (Acute) peanut Allergy (Intermediate, Unverified 03/09/24 11:07) rash/mouth swelling Resuscitation Status Full Code Height 5 ft 11 in Weight 99.798 kg Comments Comments/Follow Ups: WBC increased from 11.08 to 14.1 and temp of 37.8 at 0734 this AM - blood cultures currently pending Pharmacy Admission Review Renal Dosing Renal Dosing: BUN 22 mg/dL (7-18) H 03/11/24 06:08 Creatinine 1.5 mg/dL (0.70-1.30) H 03/11/24 06:08 Medications needing adjustments: Reviewed (CrCl 55.94 mL/min) List of meds needing interventions: Current medications are okay Anticoagulation Anticoagulation: Hgb 13.2 g/dL (13.5-17.5) L D 03/11/24 06:08 Hct 39.7 % (40.0-50.0) L 03/11/24 06:08 Plt Count 169 10^3/uL (130-400) 03/11/24 06:08 Creatinine 1.5 mg/dL (0.70-1.30) H 03/11/24 06:08 DVT Prophylaxis: Reviewed (Hgb decreased from 15.5) Medications: Apixaban (5mg PO BID) Relevant Labs Relevant Labs: Sodium 140 mmol/L (136-145) 03/11/24 06:08 Potassium 3.2 mmol/L (3.5-5.1) L 03/11/24 11:55 Chloride 101 mmol/L (98-107) 03/11/24 06:08 Magnesium 2.0 mg/dL (1.8-2.4) 03/11/24 11:55 Electrolytes, C-Reactive P, ESR: Reviewed (K 3.2 - repleting with IV infusion and PO tab, AST/ALT decreased from 140/586 to 48/327, WBC increased from 11.08 to 14.1 and temp of 37.8 at 0734 this AM - blood cultures currently pending) Cardiac Review BP, HR, EF%: Reviewed (BP and HR WNL) List meds needing interventions: Has order for chlorthalidone 25mg daily and losartan 100mg daily QTc Review QTc: Reviewed (447 from 01/13/22 - most recent EKG on file) IV to PO Switch IV Medications: Reviewed (ondansetron and pantoprazole) Home Meds Home Med List reviewed: Reviewed Relevent Home Meds Not ordered & why?: Benadryl (PRN) and meclizine (PRN) Current Meds Current Medication Order Review: Reviewed Comments Comments/Follow Ups: WBC increased from 11.08 to 14.1 and temp of 37.8 at 0734 this AM - blood cultures currently pending
--- NOTE | 2024-03-11 15:18 | NUR.NOTE ---
Nursing Note: Pt is homeless, has a hotel room to go to through [employer], but has no one to bring [place] [address] He was told that the [place] state police would give him a ride, so he called them and he is waiting for a call back from them. Discharge papers are ready for when the police can get here to bring him to his car.
--- NOTE | 2024-03-11 18:03 | PDOC.CMDIS ---
Date of service: 03/11/24 Time of Service: 18:03 LACE Index Scoring Tool Questions: Length of Stay (in days): 2 Was the patient admitted via the E.D.?: Yes E.D. Visits: 1 Answers: Total Score: 6 Risk of Readmission: Low Risk Care Management Discharge Plan Reason for Hospitalization: pancreatitis Discharge Plan: Cristofer returned home today with no new services. His drove him home via private vehicle. He will follow up with his PCP and discharge plan of care. Patient/Family Education Needs: Review discharge instructions and limitations, discussion of self care needs including ask me three. [facility] Health Related Social Needs: No Data to Display
== END 2024-03-11 16:09 | disposition home or self-care (01) | DRG 439 ==
LOC: ER 15:27 → MS 16:49
PROVIDERS: Nurse Practitioner Acute Care; Admitting Provider Family Medicine; Emergency Provider Emergency Medicine; PCP Family Medicine; Visit Provider Family Medicine
DX: K85.90 Acute pancreatitis without necrosis or infection, unspecified (principal); C64.2 Malignant neoplasm of left kidney, except renal pelvis; R74.01 Elevation of levels of liver transaminase levels; E78.5 Hyperlipidemia, unspecified; I10 Essential (primary) hypertension; K59.00 Constipation, unspecified; E03.9 Hypothyroidism, unspecified; R91.8 Other nonspecific abnormal finding of lung field; Z90.5 Acquired absence of kidney; E87.6 Hypokalemia
CPT/HCPCS: 00123; 36410; 36415; 80053; 80061; 83690; 87040; 96365; 96375; 96376; 99285; 74181; 81003; 81015; 83735; 84132; 85025; 99223; 99233; 99239; J0131; J1171; J2270; J2405; J2470; J3480; J7042

== ENCOUNTER 2024-03-15 02:12 | Outpatient (CLI) | payer MEDICARE, SELFPAY ==
[2024-03-15 17:08] LABS: Anion Gap 8.2 mmol/L (3-11); BUN 31 mg/dL (7-18); CO2 29.8 mmol/L (21.0-32.0); CREATININE 1.7 mg/dL (0.70-1.30); Calcium 9.1 mg/dL (8.5-10.1); Chloride 102 mmol/L (98-107); Glucose 93 mg/dL (74-106); Sodium 140 mmol/L (136-145)
== END 2024-03-15 02:13 | disposition home or self-care (01) ==
LOC: LBO 02:13
PROVIDERS: PCP Family Medicine; Visit Provider Nurse Practitioner Acute Care
DX: K85.90 Acute pancreatitis without necrosis or infection, unspecified (principal)
CPT/HCPCS: 36415; 80048; 80051

== ENCOUNTER 2024-05-23 02:34 | Outpatient (CLI) | payer MEDICARE, SELFPAY ==
[2024-05-23 17:08] LABS: Abs Immature Grans 0.01 10^3/uL (0.0-0.06); Absolute Basophil Count 0.04 10^3/uL (0.0-0.2); Absolute Eosinophil Count 0.13 10^3/uL (0.0-0.7); Absolute Lymphocyte Count 1.34 10^3/uL (1.2-3.4); Absolute Monocyte Count 0.27 10^3/uL (0.1-0.8); Eosinophils % 3.1 %; HCT 41.6 % (40.0-50.0); HGB 13.7 g/dL (13.5-17.5); Immature Grans % 0.2 %; MCH 28.8 pg (27.0-33.0); MCHC 32.9 % (32.0-36.0); MCV 87 fL (80-95); MPV 9.5 fL (8.0-11.0); Monocytes % 6.4 %; Neutrophils % 57.3 %; Platelet Count 125 10^3/uL (130-400); RBC 4.76 10^6/uL (4.36-5.78); RDW 12.2 % (11.8-14.1); RDW-SD 39.4 fL; WBC 4.19 10^3/uL (4.4-10.8)
[2024-05-23 17:32] LABS: ALT 30 U/L (16-63); AST 25 U/L (15-37); Alkaline Phosphatase 173 U/L (46-116); Anion Gap 5.7 mmol/L (3-11); BUN 24 mg/dL (7-18); Bilirubin, Total 0.36 mg/dL (0.2-1.0); CO2 30.3 mmol/L (21.0-32.0); CREATININE 1.7 mg/dL (0.70-1.30); Calcium 8.7 mg/dL (8.5-10.1); Chloride 106 mmol/L (98-107); Glucose 105 mg/dL (74-106); Sodium 142 mmol/L (136-145); TSH 4.53 uIU/mL (0.36-3.74); Total Protein 7.1 g/dL (6.4-8.2)
== END 2024-05-23 02:35 | disposition home or self-care (01) ==
PROVIDERS: PCP Family Medicine; Visit Provider Internal Medicine
DX: R94.6 Abnormal results of thyroid function studies (principal); Z79.899 Other long term (current) drug therapy; C78.00 Secondary malignant neoplasm of unspecified lung; C64.9 Malignant neoplasm of unspecified kidney, except renal pelvis
CPT/HCPCS: 36415; 80053; 84439; 84443; 85025

== ENCOUNTER 2024-08-21 10:15 | Outpatient (CLI) | payer MEDICARE, SELFPAY ==
--- NOTE | 2024-08-21 14:55 | DI.RAD_ITS ---
Exam(s) XR SHOULDER RT COMPLETE 2+V EXAM: XR SHOULDER RT COMPLETE 2+V CLINICAL HISTORY: M25.511 Pain in RT shoulder. TECHNIQUE: 2D digital imaging was performed. COMPARISON: No exams were available for comparison FINDINGS: Five views No evidence of fracture nor dislocation nor abnormal soft tissue calcifications. Some osteopenia is noted in the humeral head. Minimal degenerative changes in the glenohumeral and mild degenerative ch anges in the AC joint. Ipsilateral clavicle appears intact/unremarkable. IMPRESSION: No acute osseous findings. DATA REPOSITORY: RADIATION DOSE DELIVERED:
== END 2024-08-21 10:35 ==
LOC: DI 10:16
PROVIDERS: PCP Family Medicine; Visit Provider Family Medicine
DX: M25.511 Pain in right shoulder (principal)
CPT/HCPCS: 73030

== ENCOUNTER 2025-04-09 16:13 | Outpatient (REF) | payer MEDICARE, SELFPAY ==
[2025-04-09 21:34] LABS: Microalb ug/mg Crea 117.5 ug/mg Cr
== END 2025-04-09 16:14 | disposition home or self-care (01) ==
LOC: NCHCN 16:13
PROVIDERS: PCP Family Medicine; Visit Provider Family Medicine
DX: I10 Essential (primary) hypertension (principal)
CPT/HCPCS: 82043; 82570